=== PATIENT | female | born 1980 | race African-American/Black ===

== ENCOUNTER 2019-04-01 06:43 | Emergency (ER) | payer OTHER, SELFPAY ==
--- NOTE | ~2019-04-01 | CT_ITS ---
EXAMINATION: CT brain wo con DATE: 04/01/2019 12:24 INDICATION: Left arm numbness and tingling. TECHNIQUE: Computed tomography (CT) of the head was performed without intravenous contrast. The mA wa s adjusted according to patient size. Iterative reconstruction technique was employed. The dose-lengt h product was 605.33 mGy-cm. COMPARISON: None FINDINGS: There is no intracranial hemorrhage, acute infarction, or abnormal intracranial mass lesion . The ventricles are normal in size. There is mild mucosal thickening in the paranasal sinuses. The o rbits are normal. The mastoid air cells are normal. IMPRESSION: 1. Normal brain. Reviewed, dictated and finalized at location A. [employer]PER[employer] IMPRESSION: 1. Normal brain.
--- NOTE | ~2019-04-01 | XR_ITS ---
EXAMINATION: XR chest 1V portable DATE: 04/01/2019 07:35 INDICATION: Left arm numbness. TECHNIQUE: A single frontal view of the chest was obtained. COMPARISON: Chest 2 views 06/15/2018, chest CT 06/15/2018 FINDINGS: The chest demonstrates clear lungs without pneumonia, pleural effusion, or pneumothorax. Th e heart size is normal. IMPRESSION: 1. No acute cardiopulmonary disease. Reviewed, dictated and finalized at location A. ER HAND
[2019-04-01 06:47] VITALS: BP 190/93; PULSE 74; RESP 16; TEMP 36.1; O2SAT 100
--- NOTE | 2019-04-01 06:52 | ECG_ITS ---
Measurements Intervals [place] Rate: 75 P: 60 DC: 148 QRS: -5 QRSD: 73 T: 10 QT: 357 QTc: 399 Interpretive Statements SINUS RHYTHM BASELINE ARTIFACT- I, II, III, AVL, V6 NORMAL ECG Electronically Signed On 04-01-2019 11:26:56 CHIEF OF SERVICE by Tomasz Scott D.O.
--- NOTE | 2019-04-01 07:08 | ED.GENADULT ---
HPI - General Adult General Chief complaint: Extremity Injury, Upper Stated complaint: L ARM NUMBNESS AND TINGLING Time Seen by Provider: 04/01/19 06:58 Source: RN notes reviewed History of Present Illness HPI narrative: Patient presents to emergency department from home for left arm numbness. Patient states she has had 3 episodes each lasting approximately 5 minutes of numbness of the left arm. States that she has numbness and tingling and down the entire left arm. She states she is able to use the arm. She states after this last episode she began to feel weird stated felt like a feeling like her sugar was dropping. Patient denies having any trouble speaking or facial droop but states she was at her house by herself. She denies any numbness or weakness in the left leg. Patient currently denies any symptoms. Denies any chest pain shortness of breath abdominal pain nausea vomiting or any other symptoms. Patient states she is on amlodipine 10 mg daily for hypertension but did not take her medication this morning Related Data Home Medications Medication Instructions Recorded Confirmed hydralazine 02/26/19 insulin glargine [Basaglar KwikPen unit SUBCUT 02/26/19 U-100 Insulin] insulin lispro [Admelog SoloStar unit SUBCUT 02/26/19 U-100 Insulin] Allergies Allergy/AdvReac Type Severity Reaction Status Date / Time metronidazole Allergy Intermediate Rash Verified 02/26/19 16:05 omeprazole Allergy Intermediate Rash Verified 02/26/19 16:05 Review of Systems Review of Systems: Narrative: Gen.: Denies fevers or chills Eyes: Denies eye pain or visual change ENT: Denies congestion Respiratory: Denies shortness of breath or cough CV: Denies chest pain or palpitations GI: Denies abdominal pain nausea, emesis or diarrhea Musculoskeletal: Denies back pain or muscle pain Neuro: See HPI Skin: Denies rash Except as documented, all other systems reviewed and negative [facility] Past Medical History Medical History Arthritis Diabetes Diverticulitis Hypertension Irritable bowel syndrome Peripheral neuropathy Pneumonia Surgical History Surgical History (Updated 02/26/19 @ 15:33 by May Sow) Delivery by section History of tubal ligation Hx of appendectomy Social History Social History Smoking status: Never smoker Gender identity (if verbalized by the patient): Female Exam Narrative: Exam Narrative: APPEARANCE: No acute distress, nontoxic, resting in bed HEENT: Normocephalic, atraumatic, OMM, TMs clear bilaterally EYES: PERRL, EOMI NECK: Supple, nontender, full range of motion without pain, no meningismus RESPIRATORY: No respiratory distress, clear to auscultation bilaterally with no rhonchi wheezing or rales CARDIOVASCULAR: RRR s murmur ABDOMINAL: Soft, nontender, nondistended MUSCULOSKELETAL: Moves all extremities. No clubbing, cyanosis or edema. NEURO: A and O ?3, following commands, speech normal, cranial nerves II through XII grossly intact,muscle strength 5 out of 5 bilateral upper and lower extremities, no pronator drift, equal sensation in the bilateral upper and lower extremities SKIN:: Warm, dry. Normal Color PSYCHIATRIC: Normal affect/mood Course Course Emergency Course: Patient with initial blood sugars in the 50s. States she takes sliding scale insulin last dose last night. States she diet this morning. Patient was given food in the ED with improvement of blood sugars. Patient remained monitored in the ED. No further episodes of hypoglycemia. Patient remained with no further neuro deficits. Reviewed old records. Patient was chronically elevated creatinine will have patient follow as an Patient able to get up and ambulate to the bathroom with no difficulty Repeat neuro exam ANO x3 following commands, will strength 5 out of 5 bilateral upper and lower extremities. Equ
[2019-04-01 07:16] LABS: Basophils Absolute Auto 0.1 K/mm3 (0.0-0.1); Basophils Percent Auto 0.9 % (0.2-1.2); Eosinophils Absolute Auto 0.3 K/mm3 (0-0.3); Hematocrit 35.5 % (37.0-47.0); Hemoglobin 10.9 g/dL (12.0-15.0); Immature Granulocyte Absolute 0.04 K/mm3 (0.00-0.031); Immature Granulocyte Percent A 0.4 % (0-0.5); Lymphocytes Absolute Auto 3.55 K/mm3 (0.9-3.2); Lymphocytes Percent Auto 36.9 % (18.3-44.2); Mean Corpuscular HGB Conc 30.7 g/dl (32-36); Mean Corpuscular Volume 84.5 fl (80-100); Mean Platelet Volume 9.2 fl (7.4-10.4); Monocytes Absolute Auto 0.8 K/mm3 (0.1-0.6); Monocytes Percent Auto 7.8 % (2.6-8.5); Neutrophils Absolute Auto 4.9 K/mm3 (1.3-6.7); Platelet Count Result 404 k/mm3 (150-375); Red Cell Distribution Width 14.6 % (11.5-14.5); White Blood Count 9.6 K/mm3 (4.5-10.0)
[2019-04-01 07:19] LABS: Glucose Point of Care 52 (65-105)
[2019-04-01 07:31] LABS: Alanine Aminotransferase 25 U/L (4-35); Albumin Level 3.1 g/dL (3.5-5.1); Alkaline Phosphatase 172 U/L (38-126); Aspartate Amino Transferase 34 U/L (14-36); Bilirubin,Total < 0.1 mg/dL (0.2-1.3); Blood Urea Nitrogen 36 mg/dL (7-17); Calcium 8.5 mg/dL (8.4-10.2); Carbon Dioxide 27 mmol/L (22-30); Chloride 108 mmol/L (98-107); Estimated CRCL calculation 28 ml/min; Estimated Glomerular Filt Rate 19; Glucose 48 mg/dL (65-105); Potassium 3.8 mmol/L (3.4-5.0); Sodium 139 mmol/L (137-145)
[2019-04-01 07:32] LABS: INR 0.9; Prothrombin Time 11.6 Seconds (11.1-14.7)
[2019-04-01 07:38] LABS: Troponin I < 0.012 ng/mL (0.000-0.034)
[2019-04-01] MEDS: AMLODIPINE BESYLATE 5 MG TABLET 10 MG PO (07:40)
[2019-04-01 07:55] LABS: Glucose Point of Care 59 (65-105)
[2019-04-01 08:44] LABS: Glucose Point of Care 161 (65-105)
[2019-04-01 11:26] LABS: Glucose Point of Care 151 (65-105)
[2019-04-01 12:27] LABS: Add Urine Microscopic? YES; Appearance Urine Clear (Clear); Bacteria Urine Trace /hpf; Bilirubin Urine Negative (Negative); Blood Urine Negative (Negative); Color Urine Straw (Yellow); Glucose Urine UA 1+ mg/dL (Negative); Ketones Urine Negative (Negative); Leukocyte Esterase Ur Negative LEU/UL (Negative); Mucus Urine Rare /lpf; Nitrate Urine Negative (Negative); Protein Urine 3+ mg/dL (Negative); RBC Urine 0-2 /hpf (0-2); Specific Grav Ur 1.012 (1.001-1.035); Squamous Epithelial Cell Urine Few /hpf (Few); Urobilinogen Urine Negative mg/dL (<2.0); WBC Urine 0-3 /hpf
[2019-04-01 14:28] LABS: Glucose Point of Care 92 (65-105)
[2019-04-01 15:12] VITALS: BP 152/101; PULSE 72; RESP 14; O2SAT 100
[2019-04-01 15:13] LABS: Glucose Point of Care 90 (65-105)
--- NOTE | 2019-04-01 15:15 | PC.NURSE ---
Primary RN aware of BP and recommendation to speak to ERP if okay to d/c
[2019-04-01 15:21] VITALS: BP 188/96; PULSE 72; RESP 14; O2SAT 100
== END 2019-04-01 15:23 | disposition home or self-care (01) ==
PROVIDERS: Emergency Provider Emergency Medicine; PCP Registered Nurse
DX: E11.649 Type 2 diabetes mellitus with hypoglycemia without coma (principal); Z79.4 Long term (current) use of insulin; M19.90 Unspecified osteoarthritis, unspecified site; I10 Essential (primary) hypertension; K58.9 Irritable bowel syndrome, unspecified; E11.42 Type 2 diabetes mellitus with diabetic polyneuropathy
CPT/HCPCS: 36415; 70450; 71045; 80053; 81001; 82948; 84484; 85025; 85610; 85730; 93005; 99284; A9270

== ENCOUNTER 2019-05-21 14:28 | Emergency (ER) | payer SELFPAY ==
--- NOTE | ~2019-05-21 | XR_ITS ---
EXAMINATION: XR chest 1V portable DATE: 05/21/2019 15:08 INDICATION: Cough and chest pain and shortness of breath. TECHNIQUE: A single frontal view of the chest was obtained. COMPARISON: Chest single view 04/01/2019, chest CT 06/15/2018 FINDINGS: Sensitivity is decreased by obesity. The chest demonstrates clear lungs without pneumonia, pleural effusion, or pneumothorax. The heart size is normal. IMPRESSION: 1. No acute cardiopulmonary disease. Reviewed, dictated and finalized at location A.
--- NOTE | 2019-05-21 14:53 | ED.ABDPAIN ---
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 Patient notes that her symptoms have largely improved and she is very nervous given this recent revelation patient denies any fever chills nausea vomiting dyspnea at this time and on arrival is resting comfortably in the room in no distress. Related Data Home Medications Medication Instructions Recorded Confirmed hydralazine 02/26/19 insulin glargine [Basaglar KwikPen unit SUBCUT 02/26/19 U-100 Insulin] insulin lispro [Admelog SoloStar unit SUBCUT 02/26/19 U-100 Insulin] Allergies Allergy/AdvReac Type Severity Reaction Status Date / Time metronidazole Allergy Intermediate Rash Verified 05/21/19 15:02 omeprazole Allergy Intermediate Rash Verified 05/21/19 15:02 Review of Systems Review of Systems: All systems reviewed & are unremarkable except as noted in HPI and below PMFSH Past Medical History Medical History Arthritis Diabetes Diverticulitis Hypertension Irritable bowel syndrome Peripheral neuropathy Pneumonia Surgical History Surgical History Delivery by section History of tubal ligation Hx of appendectomy Social History Social History Smoking status: Never smoker Gender identity (if verbalized by the patient): Female Exam Narrative: Exam Narrative: GENERAL: Well-appearing, well-nourished, and in no acute distress. HEAD: Normocephalic, atraumatic. EYES: PERRLA and EOMI. ENT: Nares clear, no rhinorrhea or epistaxis. Mucous membranes moist. Oropharynx without tonsillar hypertrophy exudate or other lesions. CHEST: Clear to auscultation. No respiratory distress. No wheezes rales or rhonchi HEART: Regular rate and rhythm. No murmur heard. EXTREMITIES: Normal range of motion. No edema. SKIN: Warm, dry, no rash. NEURO: No focal deficits. Alert and oriented x3. Cranial nerves II through XII grossly intact PSYCH: Normal mood and affect. Course Course Emergency Course: Patient in the room in no distress aware of case findings treatment plan and diagnosis agreeing to follow-up as directed Consultations Consultation #1: Discussed case with patient's last sawyer who is aware of her blood pressures and kidney function and will follow her in clinic with no further instructions at this time. Dr tripp Date: 05/21/19 Time: 16:00 MDM - Abdominal Pain MDM Narrative Medical decision making narrative: Patient in the room in no distress no pneumonia normal vital signs afebrile nontoxic-appearing felt appropriate for outpatient reevaluation and agreeing to follow-up as directed or to return if symptoms worsen or concerns patient felt appropriate for outpatient reevaluation and will be discharged provided with reasons to return advised to self quarantine and to follow with primary care. Patient was given blood pressure medication in the emergency department as well as had her blood pressure medication filled is aware of discussion with her last sawyer and agrees to follow with primary care and nephrology as instructed Discharge Plan Discharge Clinical Impression: Acute upper respiratory infection, Hypertension, Acute hyperglycemia Patient Disposition: Home, Self-Care Condition: Stable Instructions: Antibiotic Form, Hypertension (ED), Diabetic Hyperglycemia (ED) Additional Instructions: F
[2019-05-21 14:57] VITALS: BP 251/115; PULSE 91; RESP 18; TEMP 37.5; O2SAT 98
[2019-05-21 15:01] VITALS: PULSE 88
[2019-05-21 15:26] LABS: Alanine Aminotransferase 20 U/L (4-35); Albumin Level 3.2 g/dL (3.5-5.1); Alkaline Phosphatase 206 U/L (38-126); Aspartate Amino Transferase 24 U/L (14-36); Basophils Absolute Auto 0.1 K/mm3 (0.0-0.1); Basophils Percent Auto 0.8 % (0.2-1.2); Bilirubin,Total < 0.1 mg/dL (0.2-1.3); Blood Urea Nitrogen 31 mg/dL (7-17); Calcium 8.3 mg/dL (8.4-10.2); Carbon Dioxide 24 mmol/L (22-30); Chloride 103 mmol/L (98-107); Eosinophils Absolute Auto 0.3 K/mm3 (0-0.3); Eosinophils Percent Auto 3.1 % (0-4.4); Estimated CRCL calculation 27 ml/min; Estimated Glomerular Filt Rate 17; Glucose 317 mg/dL (65-105); Hematocrit 37.4 % (37.0-47.0); Hemoglobin 11.7 g/dL (12.0-15.0); Immature Granulocyte Absolute 0.04 K/mm3 (0.00-0.031); Immature Granulocyte Percent A 0.4 % (0-0.5); Lymphocytes Absolute Auto 3.26 K/mm3 (0.9-3.2); Lymphocytes Percent Auto 36.1 % (18.3-44.2); Mean Corpuscular HGB Conc 31.3 g/dl (32-36); Mean Corpuscular Hemoglobin 25.8 pg (26-34); Mean Corpuscular Volume 82.6 fl (80-100); Mean Platelet Volume 9.4 fl (7.4-10.4); Monocytes Absolute Auto 0.5 K/mm3 (0.1-0.6); Neutrophils Absolute Auto 4.8 K/mm3 (1.3-6.7); Neutrophils Percent Auto 53.6 % (45.5-73.1); Platelet Count Result 419 k/mm3 (150-375); Potassium 4.6 mmol/L (3.4-5.0); Red Blood Count 4.53 M/mm3 (4.2-5.4); Red Cell Distribution Width 14.1 % (11.5-14.5); Sodium 136 mmol/L (137-145)
[2019-05-21 16:06] VITALS: BP 191/111; PULSE 74; RESP 18; O2SAT 100
[2019-05-21 16:12] VITALS: BP 191/111; PULSE 76; RESP 18; O2SAT 97
[2019-05-21] MEDS: AMLODIPINE BESYLATE 5 MG TABLET 10 MG PO (16:13)
== END 2019-05-21 16:13 | disposition home or self-care (01) ==
PROVIDERS: Emergency Medicine Emergency Medical Services; Emergency Provider Emergency Medicine; PCP Registered Nurse
DX: J06.9 Acute upper respiratory infection, unspecified (principal); I10 Essential (primary) hypertension; E11.65 Type 2 diabetes mellitus with hyperglycemia; E11.42 Type 2 diabetes mellitus with diabetic polyneuropathy; K58.9 Irritable bowel syndrome, unspecified; M19.90 Unspecified osteoarthritis, unspecified site; Z79.4 Long term (current) use of insulin
CPT/HCPCS: 36415; 71045; 80053; 85025; 99283; A9270

== ENCOUNTER 2019-10-24 05:40 | Emergency (ER) | payer MEDICAID, SELFPAY ==
--- NOTE | ~2019-10-24 | XR_ITS ---
EXAMINATION: XR wrist RT min 3V INDICATION: Right wrist pain TECHNIQUE: Four views of the right wrist are obtained. COMPARISON: None available FINDINGS: There is no fracture, dislocation, or subluxation. The bones and joint spaces are normal. C alcified atherosclerosis is noted. IMPRESSION: 1. No acute osseous abnormality. 2. Calcified atherosclerosis, somewhat unusual for patient age. Reviewed, dictated and finalized at location A.
[2019-10-24 05:45] VITALS: BP 191/88; PULSE 88; RESP 20; TEMP 36.6; O2SAT 100
[2019-10-24] MEDS: IBUPROFEN 400 MG TABLET 800 MG PO (06:25)
--- NOTE | 2019-10-24 06:44 | ED.EXTPRO ---
HPI - Extremity Problem General Chief complaint: Extremity Problem,Nontraumatic Stated complaint: my hand wont move Time Seen by Provider: 10/24/19 06:13 Source: patient Mode of arrival: ambulatory Limitations: no limitations History of Present Illness HPI Narrative: This patient is a 39 year old female right hand dominant who presents for right wrist pain. She states this morning she woke up with pain to her right wrist. She has pain mostly to ulnar side of wrist. She reports intermittently she has sharp pain that radiates volarly. She is having difficulty moving her wrist and fingers due to pain. She has not attempted any management for her pain or taken any medication. She denies fever, chills, nausea, vomiting abdominal pain or vaginal discharge. She denies any injury. 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 Related Data Home Medications Medication Instructions Recorded Confirmed hydralazine 02/26/19 insulin glargine [Basaglar KwikPen unit SUBCUT 02/26/19 U-100 Insulin] insulin lispro [Admelog SoloStar unit SUBCUT 02/26/19 U-100 Insulin] Allergies Allergy/AdvReac Type Severity Reaction Status Date / Time metronidazole Allergy Intermediate Rash Verified 05/21/19 15:02 omeprazole Allergy Intermediate Rash Verified 05/21/19 15:02 Review of Systems Review of Systems: All systems reviewed & are unremarkable except as noted in HPI and below PMFSH Past Medical History Medical History Arthritis Diabetes Diverticulitis Hypertension Irritable bowel syndrome Peripheral neuropathy Pneumonia Social History Social History Smoking status: Never smoker Gender identity (if verbalized by the patient): Female Exam Const: General: alert Orientation/consciousness: patient oriented x3 HENMT: Head: normocephalic and atraumatic General nose exam: No nasal polyps present Face and sinus: face symmetric Mouth: Yes Normal oral and palatal mucosa present and Yes oropharynx normal Eyes: EOM: EOMs intact bilaterally Skin: General skin exam: normal color Rashes: no rashes Neuro: General: patient oriented x3 and moves all extremities Extrem: Other: right wrist with TTP dorsal on ulnar aspect with mild swelling, no erythema. Pain with extension and flexion. Course Reevaluation(s) Reevaluation #1: I believe patient likely has tendinopathy. She has not erythema and no effusion . I Discussed management. Date: 10/24/19 Time: 07:07 Vital Signs Vital signs: Vital Signs Temperature 97.8 F 10/24/19 05:45 Pulse Rate 88 10/24/19 05:45 Respiratory Rate 20 10/24/19 05:45 Blood Pressure 191/88 H 10/24/19 05:45 Pulse Oximetry 100 10/24/19 05:45 Temperature 97.8 F 10/24/19 05:45 Pulse Rate 88 10/24/19 05:45 Respiratory Rate 10/24/19 05:45 Blood Pressure 191/88 H 10/24/19 05:45 Pulse Oximetry 100 10/24/19 05:45 MDM - Extremity (Nontraumatic) Imaging Data Radiologist's impression: ITS Impressions Wrist X-Ray 10/24/19 06:41 IMPRESSION: 1. No acute osseous abnormality. 2. Calcified atherosclerosis, somewhat unusual for patient age. Discharge Plan Discharge Clinical Impression: Acute pain of right wrist Patient Disposition: Home, Self-Care Condition: Stable Instructions: Antibiotic Form, Arthralgia (ED), Tendinitis (ED) Additional Instructions: Follow up with your orthopedic surgeon or your primary care physician. Take medication as prescribed. Get a wrist brace from [employer] or [email or web address]. Prescriptions: New naproxen 500 mg tablet 500 mg PO BID PRN (Reason: pain) Qty: 30 RF: 0 hydrocodone-acetaminophen [[place]] 5-325 mg tablet 1 tablet PO Q6H PRN (Reason: pain) Qty: 14 RF: 0 No Action hydralazine 25 mg tablet RF: 0 insulin lispro [Admelog SoloStar U-100 Insulin] 100 unit/mL insulin pen
[2019-10-24 07:24] VITALS: BP 154/84; PULSE 69; RESP 19; O2SAT 99
== END 2019-10-24 07:26 | disposition home or self-care (01) ==
PROVIDERS: Emergency Provider General Practice; PCP Registered Nurse
DX: M25.531 Pain in right wrist (principal); E11.42 Type 2 diabetes mellitus with diabetic polyneuropathy; K58.9 Irritable bowel syndrome, unspecified; I10 Essential (primary) hypertension; Z79.4 Long term (current) use of insulin; M19.90 Unspecified osteoarthritis, unspecified site
CPT/HCPCS: 73110; 99283; A9270

== ENCOUNTER 2020-02-27 07:39 | Inpatient (IN) | payer MEDICAID, SELFPAY ==
[2020-02-27] VITALS (15 sets, daily range): BP systolic 142–210; BP diastolic 72–110; PULSE 69–95; RESP 12–24; TEMP 35.8–36.7; O2SAT 98–100; BMI 44.0
--- NOTE | ~2020-02-27 | US_ITS ---
EXAMINATION: US renal BI EXAM DATE: 02/27/2020 15:21 INDICATION: Acute on chronic renal failure . TECHNIQUE: Multiple grayscale and Doppler images of the kidneys were obtained (by a technologist who performed the scan) and subsequently reviewed. Comparison is made to prior examination from 03/09/2016 . FINDINGS: Right kidney: There is normal contour and echogenicity. It measures 8.4 x 5.6 x 4.0 centimeters. Th ere are no focal renal lesions identified. There is no hydronephrosis. Left kidney: There is normal contour and echogenicity. It measures 8.6 x 4.5 x 4.5 centimeters. The re are no focal renal lesions identified. There is no hydronephrosis. The bladder is contracted but otherwise unremarkable. Kidney dimensions above are smaller than in 201 7. IMPRESSION: 1. Development of mild bilateral renal atrophy. 2. No hydronephrosis. Reviewed, dictated and finalized at location A. IPITATOR
--- NOTE | ~2020-02-27 | XR_ITS ---
EXAMINATION: XR chest 2V 02/27/2020 08:28 INDICATION: Chest pain. PROCEDURE: 2 view chest COMPARISON: Comparison to multiple prior studies sequentially, with oldest reviewed study dated 05/04. FINDINGS: The lungs are clear. The cardiomediastinal silhouette is within normal limits. There are no pleural effusions. There is no pneumothorax suspected. IMPRESSION: 1: NO ACUTE CARDIOPULMONARY DISEASE. Reviewed, dictated and finalized at location A. RMODAL DISPATCHER
--- NOTE | 2020-02-27 07:43 | ECG_ITS ---
Measurements Intervals [place] Rate: 79 P: 56 VA: 136 QRS: -4 QRSD: 84 T: 10 QT: 350 QTc: 403 Interpretive Statements SINUS RHYTHM DELAYED PRECORDIAL R/S TRANSITION BASELINE ARTIFACT- II, III, AVF BORDERLINE ECG Electronically Signed On 02-27-2020 7:54:08 [employer]ATCH PLANT SUPERVISOR by Tomasz Scott D.O.
--- NOTE | 2020-02-27 07:47 | ED.CHESTPAIN ---
HPI - Chest Pain General Chief Complaint: Chest Pain Stated Complaint: CP Time Seen by Provider: 02/27/20 07:42 Source: RN notes reviewed History of Present Illness HPI narrative: Patient presents to emergency department from home for chest pain. Patient states she has been having midsternal chest pain for the past 3 days progressively worsening with pain in the epigastric region of the abdomen states it feels similar to her acid reflux. Patient states she has tried taking Tums at home with minimal relief she denies any fevers or chills shortness of breath or diarrhea does note nausea with the symptoms Related Data Home Medications Medication Instructions Recorded Confirmed hydralazine 02/26/19 insulin glargine [Basaglar KwikPen unit SUBCUT 02/26/19 U-100 Insulin] insulin lispro [Admelog SoloStar unit SUBCUT 02/26/19 U-100 Insulin] Allergies Allergy/AdvReac Type Severity Reaction Status Date / Time metronidazole Allergy Intermediate Rash Verified 02/27/20 08:45 omeprazole Allergy Intermediate Rash Verified 02/27/20 08:45 Review of Systems Review of Systems: Narrative: Gen.: Denies fevers or chills ENT: Denies congestion Respiratory: Denies shortness of breath or cough CV: Reports chest pain GI: Reports epigastric abdominal pain and nausea denies emesis or diarrhea denies burning, urgency, frequency or hematuria Musculoskeletal: Denies back pain or muscle pain Neuro: Denies numbness, tingling, weakness or focal weakness Skin: Denies rash Except as documented, all other systems reviewed and negative [facility] Past Medical History Medical History (Updated 02/27/20 @ 09:19 by David Ge DO) Arthritis Diabetes Diverticulitis Hypertension Irritable bowel syndrome Peripheral neuropathy Pneumonia Surgical History Surgical History Delivery by section History of tubal ligation Hx of appendectomy Social History Social History Smoking status: Never smoker Gender identity (if verbalized by the patient): Female Exam Narrative: Exam Narrative: APPEARANCE: No acute distress, nontoxic, resting in bed HEENT: Normocephalic, atraumatic, OMM RESPIRATORY: No respiratory distress, clear to auscultation bilaterally with no rhonchi wheezing or rales CARDIOVASCULAR: RRR s murmur ABDOMINAL: Soft, nondistended, tender to palpation epigastric region no tenderness right upper quadrant, left upper quadrant right lower quadrant left lower quadrant no rebound or guarding MUSCULOSKELETAl: Moves all extremities. No clubbing, cyanosis or edema. NEURO: Awake and alert. Following commands, speech normal, no focal deficits SKIN:: Warm, dry. Normal Color PSYCHIATRIC: Normal affect/mood Course Course Emergency Course: Patient states chest pain is improved with GI cocktail Called and discussed with Dr. Stacy patient's current renal function patient is followed by Dr. Rebecca pina creatinine in the threes back in August this time recommends admission with normal saline at 75 mL an hour Discussed with Dr. Del Real presentation work-up. Agrees with admission at this time Discussed with patient and family results of workup and diagnosis. Discussed need for admission. Patient and family understand and agree to current treatment plan Vital Signs Vital signs: Vital Signs Temperature 98.0 F 02/27/20 07:44 Pulse Rate 95 02/27/20 07:44 Respiratory Rate 24 H 02/27/20 07:44 Blood Pressure 210/110 H 02/27/20 07:44 Pulse Oximetry 98 02/27/20 07:44 Temperature 98.0 F 02/27/20 07:44 Pulse Rate 76 02/27/20 09:17 Respiratory Rate 18 02/27/20 09:17 Blood Pressure 176/98 H 02/27/20 09:17 Pulse Oximetry 100 02/27/20 09:17 MDM - Chest Pain Lab Data Result diagrams: 02/27/20 07:59 02/27/20 07:59 Labs: Lab Results 02/27/20 02/27/20 02/27/20 Ran
[2020-02-27 08:07] LABS: Basophils Absolute Auto 0.1 K/mm3 (0.0-0.1); Basophils Percent Auto 0.8 % (0.2-1.2); Eosinophils Absolute Auto 0.3 K/mm3 (0-0.3); Eosinophils Percent Auto 2.8 % (0-4.4); Hematocrit 34.4 % (37.0-47.0); Hemoglobin 11.1 g/dL (12.0-15.0); Immature Granulocyte Absolute 0.05 K/mm3 (0.00-0.031); Immature Granulocyte Percent A 0.5 % (0-0.5); Lymphocytes Percent Auto 32.8 % (18.3-44.2); Mean Corpuscular HGB Conc 32.3 g/dl (32-36); Mean Corpuscular Hemoglobin 26.4 pg (26-34); Mean Corpuscular Volume 81.9 fl (80-100); Mean Platelet Volume 9.7 fl (7.4-10.4); Monocytes Absolute Auto 0.6 K/mm3 (0.1-0.6); Neutrophils Absolute Auto 5.6 K/mm3 (1.3-6.7); Neutrophils Percent Auto 57.1 % (45.5-73.1); Platelet Count Result 359 k/mm3 (150-375); Red Cell Distribution Width 14.1 % (11.5-14.5); White Blood Count 9.8 K/mm3 (4.5-10.0)
[2020-02-27] MEDS: ASPIRIN 81 MG CHEWABLE TABLET 324 MG PO (08:08)
[2020-02-27 08:18] LABS: INR 0.9; Prothrombin Time 12.9 Seconds (11.1-14.7)
[2020-02-27 08:19] LABS: Partial Thromboplastin Time 21.8 SECONDS (22.3-36.8)
[2020-02-27 08:20] LABS: Anion Gap 6 mmol/L (8-16); Blood Urea Nitrogen 53 mg/dL (7-17); Calcium 8.7 mg/dL (8.4-10.2); Carbon Dioxide 21 mmol/L (22-30); Chloride 111 mmol/L (98-107); Estimated CRCL calculation 13 ml/min; Estimated Glomerular Filt Rate 8; Glucose 114 mg/dL (65-105); Potassium 4.5 mmol/L (3.4-5.0); Sodium 138 mmol/L (137-145)
[2020-02-27 08:21] LABS: Alanine Aminotransferase 15 U/L (4-35); Albumin Level 3.5 g/dL (3.5-5.1); Alkaline Phosphatase 186 U/L (38-126); Aspartate Amino Transferase 21 U/L (14-36); Bilirubin,Total 0.3 mg/dL (0.2-1.3); Lipase 198 U/L (23-300)
[2020-02-27 08:32] LABS: Troponin I 0.013 ng/mL (0.000-0.034)
--- NOTE | 2020-02-27 08:34 | PC.NURSE ---
IV therapy called at this time, IV attempted multiple times prior to call.
[2020-02-27 08:53] LABS: Add Urine Microscopic? YES; Appearance Urine Clear (Clear); Bacteria Urine Trace /hpf; Bilirubin Urine Negative (Negative); Blood Urine Negative (Negative); Color Urine Straw (Yellow); Glucose Urine UA 2+ mg/dL (Negative); Ketones Urine Negative (Negative); Leukocyte Esterase Ur Trace LEU/UL (Negative); Mucus Urine Rare /lpf; Nitrate Urine Negative (Negative); Protein Urine 3+ mg/dL (Negative); Specific Grav Ur 1.015 (1.001-1.035); Squamous Epithelial Cell Urine Many /hpf (Few); Urobilinogen Urine Negative mg/dL (<2.0); WBC Urine 31-50 /hpf
[2020-02-27] MEDS: SODIUM CHLORIDE 0.9% IV 1,000 ML 999 ML IV CONT (09:13)
[2020-02-27] MEDS: ONDANSETRON INJ 4 MG/2 ML VIAL IV PUSH (09:13)
[2020-02-27 11:14] LABS: Troponin I < 0.012 ng/mL (0.000-0.034)
[2020-02-27] MEDS: SODIUM CHLORIDE 0.9% IV 1,000 ML 75 ML IV CONT ×2 (11:45→20:40)
[2020-02-27 12:55] LABS: Glucose Point of Care 84 (65-105)
--- NOTE | 2020-02-27 13:11 | PM.IMHP ---
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 The patient stated that her chest pain started on Thursday night She said she felt the acid reflux coming up into her esophagus. She said she ate some Tums but could not stand the taste of the Tums. She said she kept feel like it was the acid was going to come up out of her mouth. But never did. This pain has lasted for 3 days nothing has made it worse or made it better. She tells me that she follows with a clinical nursing director and that her blood pressure and her diabetes has not been very well under control. She cannot recall when her last A1c was. Patient stated she does not always have the money for insulin and needs assistant case manager with getting her insulin at times. She tells me that she does see a clinical nursing director. He ran some test and then she said that they may possibly do a biopsy sometime soon. The patient sees an door liner as well. Stand the chest pain. She has no reproducible pain it does not go up her neck or down her arms. She has no fever no chills. She gets checked for COVID-19 twice a week at her work. No cough. No shortness of breath. Does not radiate down her arms or through her back. She states it feels like the worse acid reflux ever that just would not go away. She said that she was given a GI cocktail in the emergency room and that did seem to help. The patient states she does not take any NSAIDs at home. The patient was given aspirin IV fluids Zofran and the GI cocktail and she is also found have a UTI and was started on ceftriaxone. Went up to 6.1 with her last being 3.0 April of last year. Patient is being admitted into inpatient services on the date of service 02/27/2020. Review of Systems Review of Systems: All systems reviewed & are unremarkable except as noted in HPI and below Constitutional: Constitutional: Reports as per HPI and Reports no additional constitutional complaints Eyes: Eyes: Reports as per HPI and Reports no additional eye complaints ENT: Reports system reviewed and no additional complaints, except as documented and Reports Normal hearing present Cardiovascular: Cardiovascular: Reports no additional cardiovascular complaints Respiratory: Respiratory: Reports no additional respiratory complaints and Reports no additional respiratory complaints Gastrointestinal: Gastrointestinal: Reports as per HPI and Reports no additional gastrointestinal complaints Musculoskeletal: Musculoskeletal: Reports no additional musculoskeletal complaints Integumentary/Breasts: Skin/Breast: Reports system reviewed and no additional complaints, except as docu and Reports as per HPI Neurologic: Reports system reviewed and no additional complaints, except as documented, Reports as per HPI and Reports Normal hearing present Psychiatric: Psychiatric: Reports no additional psychiatric complaints and Reports as per HPI Endocrine: Endocrine: Reports no additional endocrine complaints Hematologic/Lymphatic: Hematologic/Lymphatic: Reports no additional hematologic/lymphatic complaints Allergic/Immunologic: Allergic/Immunologic: Reports no additional allergic/immunologic complaints [facility] Past Medical History Medical History (Updated 02/27/20 @ 13:18 by Romina Kimble NP) Arthritis Right wrist left knee Diabetes Type 2 insulin-dependent Diverticulitis Hypertension Irritable bowel syndrome Peripheral neuropathy Pneumonia Surgical History Surgical History (Updated 02/27/20 @ 13:18 by Romina Kimble NP) Delivery by section X3 History of salpingo-oophorectomy History of tubal ligation Hx of appendectomy Hx of cholecystectomy Family History Family History Mother Diabetes mellitus Breast cancer Sibling History of blood clots Father Hypertension Prostate carci
[2020-02-27] MEDS: amLODIPine BESYLATE 5 MG TABLET 10 MG PO (14:01)
[2020-02-27 14:23] LABS: Erythrocyte Sedimentation Rate > 140 mm/hr (0-20)
[2020-02-27 14:27] LABS: Complement C3 110 mg/dL (88-165)
[2020-02-27 14:28] LABS: Troponin I 0.015 ng/mL (0.000-0.034)
[2020-02-27 14:30] LABS: Alanine Aminotransferase 12 U/L (4-35); Albumin Level 2.9 g/dL (3.5-5.1); Alkaline Phosphatase 144 U/L (38-126); Aspartate Amino Transferase 18 U/L (14-36); Bilirubin,Total 0.2 mg/dL (0.2-1.3); CRP < 0.5 mg/dL (<1.0); Creatine Kinase 222 U/L (30-135); Magnesium 1.7 mg/dL (1.6-2.3); Phosphorus 4.9 mg/dL (2.5-4.5)
[2020-02-27 14:46] LABS: Creatinine Urine 60.8 mg/dL
[2020-02-27 14:58] LABS: HIV 1/2 Ab P24 Ag Result Negative (Negative)
[2020-02-27 15:00] LABS: Sodium Urine Random 122 meq/L
[2020-02-27 15:02] LABS: Total Protein Urine Random 557 mg/dL; Ur Ttl Prot Creatinine Ratio 9.16 mg/mg (0-0.20)
[2020-02-27 15:30] LABS: Hepatitis B Surface Antigen Negative (Negative)
[2020-02-27 15:35] LABS: Hepatitis B Core IgM Result Negative (Negative)
[2020-02-27 15:48] LABS: Hepatitis B Surface Anti Res Negative; Hepatitis C Virus Antibody Negative (Negative)
--- NOTE | 2020-02-27 16:50 | PM.CNNEP ---
Assessment and Plan Assessment and plan (1) CKD (chronic kidney disease) stage 4, GFR 15-29 ml/min: Code(s): N18.4 - Chronic kidney disease, stage 4 (severe) Status: Acute Assessment and Plan: The patient has chronic kidney disease stage 4. She was evaluated by Dr. Fernandez in the office. Most likely this is due to diabetes and hypertension. (2) Acute renal failure: Code(s): N17.9 - Acute kidney failure, unspecified Status: Acute Assessment and Plan: The patient has acute kidney injury on top of her CKD. Her creatinine was 3.8 a few months ago. It would be unusual for her diabetes and hypertension to cause this rapid decline in kidney function all by itself. There is no clear issue that would cause her creatinine to have worsened this much. The patient could have obstruction. We will check a renal ultrasound. Interstitial nephritis is unlikely because she has not been on any new medications. Glomerulonephritis would be unusual in this scenario as well. Rhabdomyolysis is always a possibility. We can check a CPK. She has pyuria and so probably has a UTI. This could lead to some increase in her creatinine. Also if she is not eating and drinking very well because of the UTI could be a little dehydrated. The patient's blood pressure was very high on admission. It is possible that she might have hypertensive nephropathy. Will check urine electrolytes and eosinophils, CPK, and a renal ultrasound. (3) Hypertension: Code(s): I10 - Essential (primary) hypertension Status: Chronic Assessment and Plan: Her blood pressure is high. She will get back on her outpatient medications and we will try to get the blood pressure down. Her blood pressure has been historically high all through 2020. So I do not want to overcorrect her blood pressure right now. We will shoot for getting it down to about 150. (4) Diabetes: Code(s): E11.9 - Type 2 diabetes mellitus without complications Status: Chronic Assessment and Plan: The patient has diabetes. Will check an A1c (5) Gastroesophageal reflux: Code(s): K21.9 - Gastro-esophageal reflux disease without esophagitis Status: Acute Assessment and Plan: The patient has gastroesophageal reflux symptoms. She is getting famotidine for this. (6) Erythropoietin deficiency anemia: Code(s): D63.1 - Anemia in chronic kidney disease Status: Acute Assessment and Plan: Her hemoglobin is 11. This is most likely due to her renal insufficiency. It is not low enough to need erythropoietin. (7) Pyuria: Code(s): R82.81 - Pyuria Status: Acute Assessment and Plan: The patient has pyuria. Urine culture has been checked. She is getting ceftriaxone for this. History of Present Illness Reason for Consult Consult date: 02/27/20 Chief Complaint Chief complaint: Acute renal failure, chest pain History of Present Illness Narrative: Dotty is a very pleasant lady who sees Dr. Fernandez in the office for chronic kidney disease stage 4. She has several underlying medical conditions as well including arthritis, diabetes, hypertension, diverticulosis, irritable bowel syndrome, peripheral neuropathy, and history of pneumonia. Last time she saw Dr. Fernandez was mid 2019 when her creatinine was 3.8 and her GFR was around 15. She did not have any uremic symptoms at the time. He wanted to see her back and also repeat her blood work. At that time he talked about dialysis briefly. The patient is been doing pretty well she says since then until Thursday when she woke up and she had some nausea plus epigastric burning. This continued through the morning and then got better by the afternoon. Thursday the same thing happened. Today she had another episode in the morning and this had to some chest pressure so she came into the emergency room. In the ER she was evaluated. She looks like regul[facility]
[2020-02-27 17:01] LABS: Glucose Point of Care 250 (65-105)
[2020-02-27] MEDS: INSULIN ASPART (*BKC) 100 UNITS/ML SUB-Q (17:16)
[2020-02-27 20:31] LABS: Glucose Point of Care 347 (65-105)
[2020-02-27] MEDS: FAMOTIDINE 20 MG/2 ML VIAL IV PUSH (20:34)
[2020-02-27] MEDS: INSULIN GLARGINE (*BKC) 100 UNITS/ML 20 UNITS SUB-Q (20:35)
[2020-02-27] MEDS: LABETALOL HCL INJ 100 MG/20 ML VIAL IV PUSH (21:08)
[2020-02-27] MEDS: ACETAMINOPHEN 325 MG TABLET 650 MG PO (22:05)
[2020-02-28] VITALS (17 sets, daily range): BP systolic 136–182; BP diastolic 61–89; PULSE 73–92; RESP 12–20; TEMP 36.4–36.9; O2SAT 95–100
[2020-02-28 05:39] LABS: Basophils Absolute Auto 0.1 K/mm3 (0.0-0.1); Basophils Percent Auto 0.8 % (0.2-1.2); Eosinophils Absolute Auto 0.3 K/mm3 (0-0.3); Eosinophils Percent Auto 3.2 % (0-4.4); Hematocrit 28.1 % (37.0-47.0); Hemoglobin 8.8 g/dL (12.0-15.0); Immature Granulocyte Absolute 0.04 K/mm3 (0.00-0.031); Immature Granulocyte Percent A 0.5 % (0-0.5); Lymphocytes Absolute Auto 2.77 K/mm3 (0.9-3.2); Lymphocytes Percent Auto 35.2 % (18.3-44.2); Mean Corpuscular HGB Conc 31.3 g/dl (32-36); Mean Corpuscular Hemoglobin 26.1 pg (26-34); Mean Corpuscular Volume 83.4 fl (80-100); Monocytes Absolute Auto 0.5 K/mm3 (0.1-0.6); Monocytes Percent Auto 6.1 % (2.6-8.5); Neutrophils Absolute Auto 4.3 K/mm3 (1.3-6.7); Neutrophils Percent Auto 54.2 % (45.5-73.1); Platelet Count Result 310 k/mm3 (150-375); Red Blood Count 3.37 M/mm3 (4.2-5.4); Red Cell Distribution Width 13.9 % (11.5-14.5); White Blood Count 7.9 K/mm3 (4.5-10.0)
[2020-02-28 05:47] LABS: Albumin Level 2.7 g/dL (3.5-5.1); Anion Gap 5 mmol/L (8-16); Blood Urea Nitrogen 50 mg/dL (7-17); Calcium 7.5 mg/dL (8.4-10.2); Carbon Dioxide 19 mmol/L (22-30); Chloride 109 mmol/L (98-107); Estimated CRCL calculation 14 ml/min; Estimated Glomerular Filt Rate 8; Glucose 307 mg/dL (65-105); Phosphorus 5.3 mg/dL (2.5-4.5); Sodium 133 mmol/L (137-145)
[2020-02-28 07:53] LABS: Hemoglobin A1C 9.7 % (<5.7)
[2020-02-28 08:26] LABS: Glucose Point of Care 252 (65-105)
[2020-02-28] MEDS: INSULIN ASPART (*BKC) 100 UNITS/ML SUB-Q ×3 (08:57→17:17)
[2020-02-28] MEDS: amLODIPine BESYLATE 5 MG TABLET 10 MG PO (08:58)
[2020-02-28] MEDS: FAMOTIDINE 20 MG/2 ML VIAL IV PUSH ×2 (09:00→21:50)
[2020-02-28 12:27] LABS: Glucose Point of Care 333 (65-105)
[2020-02-28] MEDS: INSULIN GLARGINE (*BKC) 100 UNITS/ML 10 UNITS SUB-Q (12:33)
[2020-02-28] MEDS: BISACODYL 5 MG TABLET EC PO (12:36)
[2020-02-28] MEDS: LABETALOL HCL INJ 100 MG/20 ML VIAL IV PUSH ×3 (12:37→22:05)
[2020-02-28] MEDS: SODIUM CHLORIDE 0.9% IV 1,000 ML 75 ML IV CONT (13:34)
--- NOTE | 2020-02-28 16:04 | PM.IMPN ---
Progress Note: A&P Assessment and Plan (1) Atypical chest pain: Code(s): R07.89 - Other chest pain Status: Acute Assessment and Plan: The patient stated that it felt more like acid reflux. Will continue to trend her troponins. So far they have been negative. I will start her on IV Pepcid. This appears to be more acid reflux. The patient did get some relief with a GI cocktail. Her pain got worse with eating. Her pain did not get worse with exertion and it remained constant throughout the last 3 days. No reproducible pain. Does not radiate to her arms or back. Although she is diabetic and could have atypical symptoms. (2) Acute renal failure: Code(s): N17.9 - Acute kidney failure, unspecified Status: Acute Assessment and Plan: Nephrology has been consulted. Her creatinine is up to 6.1 but the patient stated that her pain got worse whenever she ate so she was avoiding certain foods probably got dehydrated. She has acute on chronic renal failure. It looks like she is stage IV possibly even 5. At 1 point she said her hand spring repairer talked about a biopsy. I ordered some labs and a renal ultrasound on her as well some urine as per protocol for acute med surg renal failure. 02/28/20 16:04 patient is a 39-year-old female morbidly obese history of hypertension diabetes and stage 4 chronic kidney disease with baseline creatinine of 3.0, presented emergency department with chest pain 3 sets of cardiac enzymes were negative and there were no acute changes on her EKG suggesting patient did not have acute coronary syndrome however patient creatinine has climbed to 6.1 upon arrival compared to 3 on 04/2019, patient seen by hand spring repairer suspect some component of dehydration patient is being hydrated, will continue to monitor kidney function and further workup is in progress, patient kidney ultrasound showed Development of mild bilateral renal atrophy and no hydronephrosis. Will continue to monitor kidney function and further recommendation to follow (3) Diabetes: Code(s): E11.9 - Type 2 diabetes mellitus without complications Status: Chronic Assessment and Plan: I did request for diabetic educators the patient stated she does not always get her insulin and may need some assistance with learning where she can get insulin during those times when she is not available to pay for it. Will do Accu-Cheks AC and HS and cover with sliding scale insulin. Will continue with Basaglar. She said at times she will cover her blood sugars with Lantus. (4) Hypertension: Code(s): I10 - Essential (primary) hypertension Status: Chronic Assessment and Plan: Patient has tried hydralazine in the past and it made her feel like she had lupus-like symptoms. She is on amlodipine low dose. Subjective Date/time seen: 02/28/20 16:04 patient is a 39-year-old female morbidly obese history of hypertension diabetes and stage 4 chronic kidney disease with baseline creatinine of 3.0, presented emergency department with chest pain 3 sets of cardiac enzymes were negative and there were no acute changes on her EKG suggesting patient did not have acute coronary syndrome however patient creatinine has climbed to 6.1 upon arrival compared to 3 on 04/2019, patient seen by hand spring repairer suspect some component of dehydration patient is being hydrated, will continue to monitor kidney function and further workup is in progress, patient kidney ultrasound showed Development of mild bilateral renal atrophy and no hydronephrosis. Will continue to monitor kidney function and further recommendation to follow Review of Systems Review of Systems: All systems reviewed & are unremarkable except as noted in HPI and below Exam Narrative: Exam Narrative: Morbidly obese Patient is comfortable, NAD HEENT: eyes are clear and none icteric LUNGS:CTA HEART: RR S1S2 ABD: BS+, Soft and nontender Lower ext
[2020-02-28 16:54] LABS: Glucose Point of Care 266 (65-105)
--- NOTE | 2020-02-28 17:09 | PM.PNNEP ---
Progress Note: A&P Assessment and Plan (1) CKD (chronic kidney disease) stage 4, GFR 15-29 ml/min: Code(s): N18.4 - Chronic kidney disease, stage 4 (severe) Status: Acute Assessment and Plan: The patient has chronic kidney disease stage 4. She was evaluated by Dr. Fernandez in the office. Most likely this is due to diabetes and hypertension. (2) Acute renal failure: Code(s): N17.9 - Acute kidney failure, unspecified Status: Acute Assessment and Plan: The patient has acute kidney injury on top of her CKD. Renal sono shows ckd, nothing acute urine sodium is high. urine creatinine pending U eos pending ck is slt high not enough to hurt the kidneys a1c is very high, almost 10. I suspect pt has dehydration due to glucosuria and osmotic diuresis. this explains higher creatinine, high urine sodium. no infection or toxic issues suspected. She could have a component of chronic progresion. She dose not seem to have any uremic sx (unless gerd was yesterday but this is better today) urine culture is negative. continue to give fluids and watch numbers. (3) Hypertension: Code(s): I10 - Essential (primary) hypertension Status: Chronic Assessment and Plan: Her blood pressure is high. she back on her outpatient meds will try carvedilol. (4) Diabetes: Code(s): E11.9 - Type 2 diabetes mellitus without complications Status: Chronic Assessment and Plan: The patient has diabetes. Will check an A1c (5) Gastroesophageal reflux: Code(s): K21.9 - Gastro-esophageal reflux disease without esophagitis Status: Acute Assessment and Plan: The patient has gastroesophageal reflux symptoms. synptoms are better. [id number] is getting famotidine for this. (6) Erythropoietin deficiency anemia: Code(s): D63.1 - Anemia in chronic kidney disease Status: Acute Assessment and Plan: Her hemoglobin dropped to 8.8. repeat tomorrow. check stool guaiacs. check irons (7) Pyuria: Code(s): R82.81 - Pyuria Status: Acute Assessment and Plan: The patient has pyuria. Urine culture is negative. Subjective Date/time seen: 02/28/20 17:09 Interval history: alert. feels okay. constipated. no sob. lying flat comfortably Review of Systems Cardiovascular: Cardiovascular: Reports no additional cardiovascular complaints Respiratory: Respiratory: Reports no additional respiratory complaints Gastrointestinal: Gastrointestinal: Reports no additional gastrointestinal complaints Genitourinary: Genitourinary: Reports no additional female genitourinary complaints Exam Narrative: Exam Narrative: WDWN in NAD skin no rash head ncat lungs clear cor reg no rub abd BS+ nontender and soft ext no edema. Objective Data Vital Signs Vital Signs: Vital Signs - 24 hr 02/27/20 18:00 02/27/20 20:00 02/27/20 21:08 Temperature 36.6 C Pulse Rate 85 89 93 Respiratory Rate 20 Blood Pressure 171/91 H Pulse Oximetry 100 02/27/20 22:00 02/27/20 23:25 02/27/20 23:50 Temperature 36.4 C Pulse Rate 82 82 Respiratory Rate 18 Blood Pressure 142/72 H Pulse Oximetry 100 100 02/28/20 00:00 02/28/20 02:00 02/28/20 04:00 Temperature 36.4 C Pulse Rate 92 79 73 Respiratory Rate 18 Blood Pressure 136/61 Pulse Oximetry 98 02/28/20 06:00 02/28/20 08:00 02/28/20 08:23 Temperature 36.6 C Pulse Rate 78 76 Respiratory Rate 12 Blood Pressure 152/82 H Pulse Oximetry 100 98 02/28/20 10:00 02/28/20 12:00 02/28/20 12:37 Temperature 36.6 C Pulse Rate 75 78 85 Respiratory Rate 12 Blood Pressure 170/84 H Pulse Oximetry 95 02/28/20 16:00 Temperature 36.6 C Pulse Rate 88 Respiratory Rate 12 Blood Pressure 178/82 H Pulse Oximetry 100 Intake/Output Intake/Output: Intake & Output 02/25/20 02/26/20 02/27/20 02/28/20 23:59 23:59 23:59 23:59 I
[2020-02-28 18:20] LABS: Iron 22 ug/dL (37-170)
[2020-02-28 18:29] LABS: Percent Iron Saturation 9 % (20-50)
[2020-02-28 18:54] LABS: Folic Acid 5.3 ng/mL (2.76->20)
--- NOTE | 2020-02-28 18:55 | PC.NURSE ---
This patient, Bakair Smith, was received from [facility] on 02/28/20 at 1855. Patient/family oriented to unit policies and routines
[2020-02-28] MEDS: INSULIN GLARGINE (*BKC) 100 UNITS/ML 20 UNITS SUB-Q (21:50)
[2020-02-28] MEDS: carvediloL 12.5 MG TABLET PO (21:50)
[2020-02-28 21:56] LABS: Glucose Point of Care 208 (65-105)
[2020-02-28] MEDS: ACETAMINOPHEN 325 MG TABLET 650 MG PO (22:13)
[2020-02-29] VITALS (7 sets, daily range): BP systolic 149–160; BP diastolic 83–85; PULSE 72–80; RESP 16–20; TEMP 36.6–36.7; O2SAT 100
[2020-02-29] MEDS: SODIUM CHLORIDE 0.9% IV 1,000 ML 75 ML IV CONT ×2 (02:00→15:18)
[2020-02-29 07:01] LABS: Albumin Level 2.9 g/dL (3.5-5.1); Anion Gap 6 mmol/L (8-16); Blood Urea Nitrogen 43 mg/dL (7-17); Calcium 8.1 mg/dL (8.4-10.2); Carbon Dioxide 20 mmol/L (22-30); Chloride 113 mmol/L (98-107); Estimated CRCL calculation 15 ml/min; Estimated Glomerular Filt Rate 9; Glucose 149 mg/dL (65-105); Phosphorus 5.3 mg/dL (2.5-4.5); Potassium 4.8 mmol/L (3.4-5.0); Sodium 139 mmol/L (137-145)
[2020-02-29 07:12] LABS: Hematocrit 30.2 % (37.0-47.0); Hemoglobin 9.5 g/dL (12.0-15.0); Mean Corpuscular HGB Conc 31.5 g/dl (32-36); Mean Corpuscular Hemoglobin 25.7 pg (26-34); Mean Corpuscular Volume 81.8 fl (80-100); Mean Platelet Volume 9.6 fl (7.4-10.4); Platelet Count Result 346 k/mm3 (150-375); Red Blood Count 3.69 M/mm3 (4.2-5.4); Red Cell Distribution Width 13.7 % (11.5-14.5); White Blood Count 8.8 K/mm3 (4.5-10.0)
[2020-02-29 08:33] LABS: Glucose Point of Care 111 (65-105)
[2020-02-29] MEDS: amLODIPine BESYLATE 5 MG TABLET 10 MG PO (09:24)
[2020-02-29] MEDS: FAMOTIDINE 20 MG/2 ML VIAL IV PUSH ×2 (09:24→20:32)
[2020-02-29] MEDS: carvediloL 12.5 MG TABLET PO ×2 (09:24→21:30)
[2020-02-29] MEDS: INSULIN ASPART (*BKC) 100 UNITS/ML SUB-Q ×2 (12:18→17:24)
[2020-02-29 12:38] LABS: Glucose Point of Care 220 (65-105)
[2020-02-29 13:54] LABS: IFOB Positive Control Positive; Immunochemical Fecal Occult Bl Negative (N)
[2020-02-29] MEDS: LABETALOL HCL INJ 100 MG/20 ML VIAL IV PUSH (15:15)
--- NOTE | 2020-02-29 15:44 | PM.IMPN ---
Progress Note: A&P Assessment and Plan (1) Atypical chest pain: Code(s): R07.89 - Other chest pain Status: Acute Assessment and Plan: The patient stated that it felt more like acid reflux. Will continue to trend her troponins. So far they have been negative. I will start her on IV Pepcid. This appears to be more acid reflux. The patient did get some relief with a GI cocktail. Her pain got worse with eating. Her pain did not get worse with exertion and it remained constant throughout the last 3 days. No reproducible pain. Does not radiate to her arms or back. Although she is diabetic and could have atypical symptoms. (2) Acute renal failure: Code(s): N17.9 - Acute kidney failure, unspecified Status: Acute Assessment and Plan: Nephrology has been consulted. Her creatinine is up to 6.1 but the patient stated that her pain got worse whenever she ate so she was avoiding certain foods probably got dehydrated. She has acute on chronic renal failure. It looks like she is stage IV possibly even 5. At 1 point she said her whizzer operator talked about a biopsy. I ordered some labs and a renal ultrasound on her as well some urine as per protocol for acute med surg renal failure. 02/29/20 15:44 patient is a 39-year-old female morbidly obese history of hypertension diabetes and stage 4 chronic kidney disease with baseline creatinine of 3.0, presented emergency department with chest pain 3 sets of cardiac enzymes were negative and there were no acute changes on her EKG suggesting patient did not have acute coronary syndrome however patient creatinine has climbed to 6.1 upon arrival compared to 3 on 04/2019, patient seen by whizzer operator suspect some component of dehydration patient is being hydrated, will continue to monitor kidney function and further workup is in progress, patient kidney ultrasound showed Development of mild bilateral renal atrophy and no hydronephrosis. Today patient was seen by whizzer operator patient hemoglobin A1c is 10 suspecting most likely patient has multifactorial with dehydration as well as diabetic nephropathy patient is being gently hydrated will consult nutrition educator as patient has a uncontrolled diabetes, I have also discussed with the patient regard to her elevated blood sugar and A1c will wait recommendation from nutrition educator and will plan accordingly (3) Diabetes: Code(s): E11.9 - Type 2 diabetes mellitus without complications Status: Chronic Assessment and Plan: I did request for diabetic educators the patient stated she does not always get her insulin and may need some assistance with learning where she can get insulin during those times when she is not available to pay for it. Will do Accu-Cheks AC and HS and cover with sliding scale insulin. Will continue with Basaglar. She said at times she will cover her blood sugars with Lantus. (4) Hypertension: Code(s): I10 - Essential (primary) hypertension Status: Chronic Assessment and Plan: Patient has tried hydralazine in the past and it made her feel like she had lupus-like symptoms. She is on amlodipine low dose. Subjective Date/time seen: 02/29/20 15:44 patient is a 39-year-old female morbidly obese history of hypertension diabetes and stage 4 chronic kidney disease with baseline creatinine of 3.0, presented emergency department with chest pain 3 sets of cardiac enzymes were negative and there were no acute changes on her EKG suggesting patient did not have acute coronary syndrome however patient creatinine has climbed to 6.1 upon arrival compared to 3 on 04/2019, patient seen by whizzer operator suspect some component of dehydration patient is being hydrated, will continue to monitor kidney function and further workup is in progress, patient kidney ultrasound showed Development of mild bilateral renal atrophy and no hydronephrosis. Today patient was seen by nephrol
[2020-02-29 17:24] LABS: Glucose Point of Care 284 (65-105)
--- NOTE | 2020-02-29 17:31 | PM.PNNEP ---
Progress Note: A&P Assessment and Plan (1) CKD (chronic kidney disease) stage 4, GFR 15-29 ml/min: Code(s): N18.4 - Chronic kidney disease, stage 4 (severe) Status: Acute Assessment and Plan: The patient has chronic kidney disease stage 4. She was evaluated by Dr. Fernandez in the office. Most likely this is due to diabetes and hypertension. (2) Acute renal failure: Code(s): N17.9 - Acute kidney failure, unspecified Status: Acute Assessment and Plan: The patient has acute kidney injury on top of her CKD. Renal sono shows ckd, nothing acute urine sodium is high. urine creatinine pending U eos negative ck is slt high not enough to hurt the kidneys a1c is very high, almost 10. ROSHNI due to dehydration. Creatinine is slowly coming down (3) Hypertension: Code(s): I10 - Essential (primary) hypertension Status: Chronic Assessment and Plan: Her blood pressure is doing better. Goal for now is a range of 140-160 then better control in the office in a few months. (4) Diabetes: Code(s): E11.9 - Type 2 diabetes mellitus without complications Status: Chronic Assessment and Plan: The patient has diabetes. A1c is very high (5) Gastroesophageal reflux: Code(s): K21.9 - Gastro-esophageal reflux disease without esophagitis Status: Acute Assessment and Plan: The patient has gastroesophageal reflux symptoms. synptoms are better. She is getting famotidine for this. (6) Erythropoietin deficiency anemia: Code(s): D63.1 - Anemia in chronic kidney disease Status: Acute Assessment and Plan: Her hemoglobin dropped to 8.8 at 1 point and now is 9.5. stool guaiacs are negative check irons (7) Pyuria: Code(s): R82.81 - Pyuria Status: Acute Assessment and Plan: The patient has pyuria. Urine culture is negative. Subjective Date/time seen: 02/29/20 17:31 Interval history: alert. feels okay. no sob. no swelling Exam Narrative: Exam Narrative: WDWN in NAD skin no rash head ncat lungs clear bilaterally cor reg no rub abd BS+ nontender and soft ext no edema or cyanosis Objective Data Vital Signs Vital Signs: Vital Signs - 24 hr 02/28/20 18:16 02/28/20 18:46 02/28/20 18:55 Temperature 36.9 C Pulse Rate 88 89 Respiratory Rate 18 Blood Pressure 160/86 H 179/80 H Pulse Oximetry 100 02/28/20 21:50 02/28/20 22:00 02/28/20 22:05 Temperature 36.9 C Pulse Rate 89 89 89 Respiratory Rate 20 Blood Pressure 182/89 H Pulse Oximetry 100 02/28/20 23:15 02/29/20 06:00 02/29/20 09:24 Temperature 36.7 C Pulse Rate 78 80 Respiratory Rate 20 Blood Pressure 142/78 H 149/83 H Pulse Oximetry 100 02/29/20 14:00 02/29/20 15:15 02/29/20 15:45 Temperature 36.7 C Pulse Rate 77 80 Respiratory Rate 16 Blood Pressure 155/83 H 160/85 H Pulse Oximetry 100 Intake/Output Intake/Output: Intake & Output 02/26/20 02/27/20 02/28/20 02/29/20 23:59 23:59 23:59 23:59 Intake Total 3530 2170 3250 Output Total 900 2000 1725 Balance 2630 170 1525 Meds/Results Medications: Active Medications Generic Name Dose Route Start Last Admin Trade Name Freq PRN Reason Stop Dose Admin Acetaminophen 650 mg 02/27/20 21:37 02/28/20 22:13 Acetaminophen 325 Mg Tablet PO 650 mg Q4H PRN Administration Mild Pain (1-3) or Fever Amlodipine Besylate 10 mg 02/27/20 09:00 02/29/20 09:24 Amlodipine Besylate 5 Mg Tablet PO 10 mg DAILY CHAYO Administration Bisacodyl 5 mg 02/28/20 11:44 02/28/20 12:36 Bisacodyl 5 Mg Tablet Ec PO 5 mg QAM PRN Administration Constipation Carvedilol 12.5 mg 02/28/20 21:00 02/29/20 09:24 Carvedilol 12.5 Mg Tablet PO 12.5 mg Q12HR CHAYO Administration Dextrose 12.5 gm 02/27/20 13:16 Dextrose 50% 25 Gm/50 Ml Syringe IV PUSH PRN PRN Hypoglycemia P
[2020-02-29] MEDS: INSULIN GLARGINE (*BKC) 100 UNITS/ML 20 UNITS SUB-Q (20:33)
[2020-02-29 22:43] LABS: Glucose Point of Care 261 (65-105)
[2020-02-29 23:59] LABS: Anti Streptolysin O Screen <50 IU/mL (<200)
[2020-03-01 00:06] LABS: Osmolality, Urine 380 mOsm/kg (50-1200)
[2020-03-01] MEDS: SODIUM CHLORIDE 0.9% IV 1,000 ML 75 ML IV CONT ×2 (04:38→20:19)
[2020-03-01 06:00] VITALS: BP 147/86; PULSE 73; RESP 20; TEMP 36.7; O2SAT 100
[2020-03-01 06:52] LABS: Hematocrit 28.5 % (37.0-47.0); Hemoglobin 8.9 g/dL (12.0-15.0); Mean Corpuscular HGB Conc 31.2 g/dl (32-36); Mean Corpuscular Hemoglobin 25.3 pg (26-34); Mean Platelet Volume 9.4 fl (7.4-10.4); Platelet Count Result 329 k/mm3 (150-375); Red Blood Count 3.52 M/mm3 (4.2-5.4); Red Cell Distribution Width 13.9 % (11.5-14.5); White Blood Count 7.4 K/mm3 (4.5-10.0)
[2020-03-01 07:05] LABS: Albumin Level 2.7 g/dL (3.5-5.1); Anion Gap 3 mmol/L (8-16); Blood Urea Nitrogen 38 mg/dL (7-17); Carbon Dioxide 20 mmol/L (22-30); Chloride 116 mmol/L (98-107); Estimated CRCL calculation 16 ml/min; Estimated Glomerular Filt Rate 9; Glucose 94 mg/dL (65-105); Phosphorus 4.9 mg/dL (2.5-4.5); Sodium 139 mmol/L (137-145)
[2020-03-01 08:35] LABS: SM Antibody <1.0; SM/RNP Antibody <1.0
[2020-03-01 09:07] LABS: Glucose Point of Care 77 (65-105)
[2020-03-01 09:57] VITALS: PULSE 94
[2020-03-01] MEDS: carvediloL 12.5 MG TABLET PO ×2 (09:57→20:11)
[2020-03-01] MEDS: BISACODYL 5 MG TABLET EC PO (09:57)
[2020-03-01] MEDS: amLODIPine BESYLATE 5 MG TABLET 10 MG PO (09:57)
[2020-03-01] MEDS: FAMOTIDINE 20 MG/2 ML VIAL IV PUSH ×2 (09:59→20:11)
[2020-03-01 12:17] LABS: Glucose Point of Care 140 (65-105)
[2020-03-01 14:00] VITALS: BP 154/94; PULSE 76; RESP 16; TEMP 36.8; O2SAT 100
--- NOTE | 2020-03-01 15:32 | PM.PNNEP ---
Progress Note: A&P Assessment and Plan (1) CKD (chronic kidney disease) stage 4, GFR 15-29 ml/min: Code(s): N18.4 - Chronic kidney disease, stage 4 (severe) Status: Acute Assessment and Plan: The patient has chronic kidney disease stage 4. She was evaluated by Dr. Fernandez in the office. Most likely this is due to diabetes and hypertension. (2) Acute renal failure: Code(s): N17.9 - Acute kidney failure, unspecified Status: Acute Assessment and Plan: The patient has acute kidney injury on top of her CKD. Renal sono shows ckd, nothing acute urine sodium is high. urine creatinine pending U eos negative ck is slt high not enough to hurt the kidneys a1c is very high, almost 10. ROSHNI due to dehydration most likely and hypertensive changes likely playing a role as well.. also some progression of disease is likely. Creatinine is slowly coming down (3) Hypertension: Code(s): I10 - Essential (primary) hypertension Status: Chronic Assessment and Plan: Her blood pressure is ranging from 140 to 160 this is the temporary goal (4) Diabetes: Code(s): E11.9 - Type 2 diabetes mellitus without complications Status: Chronic Assessment and Plan: The patient has diabetes. A1c is very high accuchecks here are pretty good. (5) Gastroesophageal reflux: Code(s): K21.9 - Gastro-esophageal reflux disease without esophagitis Status: Acute Assessment and Plan: The patient has gastroesophageal reflux symptoms. synptoms are better. She is getting famotidine for this. (6) Erythropoietin deficiency anemia: Code(s): D63.1 - Anemia in chronic kidney disease Status: Acute Assessment and Plan: Her hemoglobin dropped to 8.8 at 1 point and now is 9.5. stool guaiacs are negative tsat low. give venofer and use ep (7) Pyuria: Code(s): R82.81 - Pyuria Status: Acute Assessment and Plan: The patient has pyuria. Urine culture is negative. Subjective Date/time seen: 03/01/20 15:32 Interval history: alert. feels okay. no sob. no swelling eating okay Review of Systems Cardiovascular: Cardiovascular: Reports no additional cardiovascular complaints Respiratory: Respiratory: Reports no additional respiratory complaints Gastrointestinal: Gastrointestinal: Reports no additional gastrointestinal complaints Genitourinary: Genitourinary: Reports no additional female genitourinary complaints Exam Narrative: Exam Narrative: WDWN in NAD skin no rash or sq nodules head ncat lungs clear bilaterally cor reg no rub or gallop abd BS+ nontender and soft ext no edema or cyanosis Objective Data Vital Signs Vital Signs: Vital Signs - 24 hr 02/29/20 15:45 02/29/20 21:30 02/29/20 22:00 Temperature 36.6 C Pulse Rate 72 80 Respiratory Rate 20 Blood Pressure 160/85 H 155/84 H Pulse Oximetry 100 03/01/20 06:00 03/01/20 09:57 03/01/20 14:00 Temperature 36.7 C 36.8 C Pulse Rate 73 94 76 Respiratory Rate 20 16 Blood Pressure 147/86 H 154/94 H Pulse Oximetry 100 100 Intake/Output Intake/Output: Intake & Output 02/27/20 02/28/20 02/29/20 03/01/20 23:59 23:59 23:59 23:59 Intake Total 3530 2170 4590 2450 Output Total 900 2000 3075 2400 Balance 2630 170 1515 50 Meds/Results Medications: Active Medications Generic Name Dose Route Start Last Admin Trade Name Freq PRN Reason Stop Dose Admin Acetaminophen 650 mg 02/27/20 21:37 02/28/20 22:13 Acetaminophen 325 Mg Tablet PO 650 mg Q4H PRN Administration Mild Pain (1-3) or Fever Amlodipine Besylate 10 mg 02/27/20 09:00 03/01/20 09:57 Amlodipine Besylate 5 Mg Tablet PO 10 mg DAILY CHAYO Administration Bisacodyl 5 mg 02/28/20 11:44 03/01/20 09:57 Bisacodyl 5 Mg Tablet Ec PO 5 mg QAM PRN Administration Constipation Carvedilol 12.5 mg 02/28/20 21:00 03/01/20
[2020-03-01] MEDS: EPOETIN ALFA-EPBX 10,000 UNITS/ML VIAL 10000 UNITS SUB-Q (16:17)
--- NOTE | 2020-03-01 17:00 | PM.IMPN ---
Progress Note: A&P Assessment and Plan (1) Atypical chest pain: Code(s): R07.89 - Other chest pain Status: Acute Assessment and Plan: The patient stated that it felt more like acid reflux. Will continue to trend her troponins. So far they have been negative. I will start her on IV Pepcid. This appears to be more acid reflux. The patient did get some relief with a GI cocktail. Her pain got worse with eating. Her pain did not get worse with exertion and it remained constant throughout the last 3 days. No reproducible pain. Does not radiate to her arms or back. Although she is diabetic and could have atypical symptoms. (2) Acute renal failure: Code(s): N17.9 - Acute kidney failure, unspecified Status: Acute Assessment and Plan: 03/01/20 17:00 Nephrology has been consulted. Her creatinine is up to 6.1 but the patient stated that her pain got worse whenever she ate so she was avoiding certain foods probably got dehydrated. She has acute on chronic renal failure. It looks like she is stage IV possibly even 5. At 1 point she said her kiln drawer talked about a biopsy. I ordered some labs and a renal ultrasound on her as well some urine as per protocol for acute med surg renal failure. patient is a 39-year-old female morbidly obese history of hypertension diabetes and stage 4 chronic kidney disease with baseline creatinine of 3.0, presented emergency department with chest pain 3 sets of cardiac enzymes were negative and there were no acute changes on her EKG suggesting patient did not have acute coronary syndrome however patient creatinine has climbed to 6.1 upon arrival compared to 3 on 04/2019, patient seen by kiln drawer suspect some component of dehydration patient is being hydrated, will continue to monitor kidney function and further workup is in progress, patient kidney ultrasound showed Development of mild bilateral renal atrophy and no hydronephrosis. Today again patient was seen by kiln drawer patient hemoglobin A1c is 10 suspecting most likely patient has multifactorial with dehydration as well as diabetic nephropathy patient creatinine has improved slightly to 5.4 compare to when she arrive with 6.1, will wait to hear from kiln drawer further recommendation, patient is being gently hydrated will consult insights analyst as patient has a uncontrolled diabetes, I have also discussed with the patient regard to her elevated blood sugar and A1c will wait recommendation from insights analyst and will plan accordingly (3) Diabetes: Code(s): E11.9 - Type 2 diabetes mellitus without complications Status: Chronic Assessment and Plan: I did request for diabetic educators the patient stated she does not always get her insulin and may need some assistance with learning where she can get insulin during those times when she is not available to pay for it. Will do Accu-Cheks AC and HS and cover with sliding scale insulin. Will continue with Basaglar. She said at times she will cover her blood sugars with Lantus. (4) Hypertension: Code(s): I10 - Essential (primary) hypertension Status: Chronic Assessment and Plan: Patient has tried hydralazine in the past and it made her feel like she had lupus-like symptoms. She is on amlodipine low dose. Subjective Date/time seen: 03/01/20 17:00 Nephrology has been consulted. Her creatinine is up to 6.1 but the patient stated that her pain got worse whenever she ate so she was avoiding certain foods probably got dehydrated. She has acute on chronic renal failure. It looks like she is stage IV possibly even 5. At 1 point she said her kiln drawer talked about a biopsy. I ordered some labs and a renal ultrasound on her as well some urine as per protocol for acute med surg renal failure. patient is a 39-year-old female morbidly obese history of hypertension diabetes and stage 4 chronic kidney disease wit
[2020-03-01 17:25] LABS: Glucose Point of Care 182 (65-105)
[2020-03-01 18:04] LABS: Chloride Rand Ur 107 mmol/L (32-290); Chloride/Creatinine Rand Ur 170 (38-318); Creatinine Random Urine 63 mg/dL (20-275)
[2020-03-01 20:11] VITALS: PULSE 80
[2020-03-01] MEDS: INSULIN GLARGINE (*BKC) 100 UNITS/ML 20 UNITS SUB-Q (20:12)
[2020-03-01 21:26] LABS: Glucose Point of Care 237 (65-105)
[2020-03-01 21:30] LABS: ANCA Screen Negative (Negative)
[2020-03-01 22:00] VITALS: BP 148/85; PULSE 81; RESP 18; TEMP 36.9; O2SAT 100
[2020-03-01 22:54] LABS: Albumin 2.8 g/dL (3.8-4.8); Alpha 1 Globulin 0.4 g/dL (0.2-0.3); Beta 1 Globulin 0.4 g/dL (0.4-0.6); Gamma Globulin 1.3 g/dL (0.8-1.7); Protein, Total 6.3 g/dL (6.1-8.1)
[2020-03-01] MEDS: ACETAMINOPHEN 325 MG TABLET 650 MG PO (23:02)
[2020-03-02 05:39] VITALS: BP 143/86; PULSE 70; RESP 20; TEMP 36.9; O2SAT 100
[2020-03-02 06:45] LABS: Albumin Level 2.6 g/dL (3.5-5.1); Anion Gap 5 mmol/L (8-16); Blood Urea Nitrogen 38 mg/dL (7-17); Carbon Dioxide 19 mmol/L (22-30); Chloride 112 mmol/L (98-107); Estimated CRCL calculation 16 ml/min; Estimated Glomerular Filt Rate 9; Glucose 180 mg/dL (65-105); Phosphorus 5.3 mg/dL (2.5-4.5); Potassium 4.7 mmol/L (3.4-5.0); Sodium 136 mmol/L (137-145)
[2020-03-02 08:00] VITALS: PULSE 70; RESP 20; O2SAT 100
[2020-03-02 08:10] LABS: Anti Glomerular Basement Memb <1.0 AI (<1.0)
[2020-03-02 08:33] LABS: Glucose Point of Care 129 (65-105)
[2020-03-02] MEDS: amLODIPine BESYLATE 5 MG TABLET 10 MG PO (10:35)
[2020-03-02] MEDS: carvediloL 12.5 MG TABLET PO (10:35)
[2020-03-02] MEDS: IRON SUCROSE COMPLEX 200 MG in SODIUM CHLORIDE 0.9% IV 50 ML 120 MG IVPB (10:37)
--- NOTE | 2020-03-02 11:21 | PM.PNNEP ---
Progress Note: A&P Assessment and Plan (1) CKD (chronic kidney disease) stage 4, GFR 15-29 ml/min: Code(s): N18.4 - Chronic kidney disease, stage 4 (severe) Status: Acute Assessment and Plan: The patient has chronic kidney disease stage 4. She was evaluated by Dr. Fernandez in the office. Most likely this is due to diabetes and hypertension. (2) Acute renal failure: Code(s): N17.9 - Acute kidney failure, unspecified Status: Acute Assessment and Plan: The patient has acute kidney injury on top of her CKD. Renal sono shows ckd, nothing acute urine sodium is high. urine creatinine pending U eos negative ck is slt high not enough to hurt the kidneys a1c is very high, almost 10. ROSHNI due to dehydration most likely and hypertensive changes likely playing a role as well. Her creatinine is very slowly improving. It is on a definite downward trend. The patient has no symptoms from her kidney disease and she is eating and drinking well. At this point I think she can be discharged from the kidney standpoint. I talked to her at length about keeping her sugars under good control. She will work with her primary care physician and endocrinology to keep the sugars under control. If the sugars go back up again she will get dehydrated again an and upright back in the hospital. Hopefully her renal function will continue to improve. If it stays in the 5 range then she probably will need a fistula placed for dialysis. At this point she does not need dialysis because she has no symptoms and her GFR is above 7. In addition hopefully her renal function will continue to improve. I asked the patient to make an appointment with Dr. Fernandez for Thursday or Thursday and repeat some blood work with him. Discussed with Dr. Del Real (3) Hypertension: Code(s): I10 - Essential (primary) hypertension Status: Chronic Assessment and Plan: Her blood pressure is ranging from 140 to 160 this is the temporary goal (4) Diabetes: Code(s): E11.9 - Type 2 diabetes mellitus without complications Status: Chronic Assessment and Plan: The patient has diabetes. A1c is very high accuchecks here are pretty good. (5) Gastroesophageal reflux: Code(s): K21.9 - Gastro-esophageal reflux disease without esophagitis Status: Acute Assessment and Plan: The patient has gastroesophageal reflux symptoms. synptoms are better. She is getting famotidine for this. (6) Erythropoietin deficiency anemia: Code(s): D63.1 - Anemia in chronic kidney disease Status: Acute Assessment and Plan: Her hemoglobin dropped to 8.8 at 1 point and now is 9.5. stool guaiacs are negative tsat low. on venofer and use epo The patient should be referred to Dr. Jacques as an outpatient as well for continued Epogen administration.. (7) Pyuria: Code(s): R82.81 - Pyuria Status: Acute Assessment and Plan: The patient has pyuria. Urine culture is negative. Subjective Date/time seen: 03/02/20 11:21 Interval history: alert. feels okay. no sob. no swelling eating okay No more GERD symptoms. Review of Systems Cardiovascular: Cardiovascular: Reports no additional cardiovascular complaints Respiratory: Respiratory: Reports no additional respiratory complaints Gastrointestinal: Gastrointestinal: Reports no additional gastrointestinal complaints Genitourinary: Genitourinary: Reports no additional female genitourinary complaints Exam Narrative: Exam Narrative: WDWN in NAD skin no rash or sq nodules head ncat lungs clear to auscultation cor reg no rub or gallop abd BS+ nontender and soft ext no edema Objective Data Vital Signs Vital Signs: Vital Signs - 24 hr 03/01/20 14:00 03/01/20 20:11 03/01/20 22:00 Temperature 36.8 C 36.9 C Pulse Rate 76 80 81 Respiratory Rate 16 18 Blood Pressure 154/94 H 148/85 H Pul
[2020-03-02] MEDS: FAMOTIDINE 20 MG/2 ML VIAL IV PUSH (11:28)
[2020-03-02 12:20] LABS: Glucose Point of Care 170 (65-105)
--- NOTE | 2020-03-02 12:29 | PM.DS ---
DS: Admitting Diagnosis Admitting Diagnosis Admitting Diagnosis: Chief Complaint: Chest pain DS: Discharge Diagnosis Discharge Diagnosis (1) Atypical chest pain: Code(s): R07.89 - Other chest pain Status: Acute Assessment and Plan: The patient stated that it felt more like acid reflux. Will continue to trend her troponins. So far they have been negative. I will start her on IV Pepcid. This appears to be more acid reflux. The patient did get some relief with a GI cocktail. Her pain got worse with eating. Her pain did not get worse with exertion and it remained constant throughout the last 3 days. No reproducible pain. Does not radiate to her arms or back. Although she is diabetic and could have atypical symptoms. (2) Acute renal failure: Code(s): N17.9 - Acute kidney failure, unspecified Status: Acute Assessment and Plan: 03/01/20 17:00 Nephrology has been consulted. Her creatinine is up to 6.1 but the patient stated that her pain got worse whenever she ate so she was avoiding certain foods probably got dehydrated. She has acute on chronic renal failure. It looks like she is stage IV possibly even 5. At 1 point she said her fiberglass bonding machine tender talked about a biopsy. I ordered some labs and a renal ultrasound on her as well some urine as per protocol for acute med surg renal failure. patient is a 39-year-old female morbidly obese history of hypertension diabetes and stage 4 chronic kidney disease with baseline creatinine of 3.0, presented emergency department with chest pain 3 sets of cardiac enzymes were negative and there were no acute changes on her EKG suggesting patient did not have acute coronary syndrome however patient creatinine has climbed to 6.1 upon arrival compared to 3 on 04/2019, patient seen by fiberglass bonding machine tender suspect some component of dehydration patient is being hydrated, will continue to monitor kidney function and further workup is in progress, patient kidney ultrasound showed Development of mild bilateral renal atrophy and no hydronephrosis. Today again patient was seen by fiberglass bonding machine tender patient hemoglobin A1c is 10 suspecting most likely patient has multifactorial with dehydration as well as diabetic nephropathy patient creatinine has improved slightly to 5.4 compare to when she arrive with 6.1, will wait to hear from fiberglass bonding machine tender further recommendation, patient is being gently hydrated will consult fish worm grower as patient has a uncontrolled diabetes, I have also discussed with the patient regard to her elevated blood sugar and A1c will wait recommendation from fish worm grower and will plan accordingly (3) Diabetes: Code(s): E11.9 - Type 2 diabetes mellitus without complications Status: Chronic Assessment and Plan: I did request for diabetic educators the patient stated she does not always get her insulin and may need some assistance with learning where she can get insulin during those times when she is not available to pay for it. Will do Accu-Cheks AC and HS and cover with sliding scale insulin. Will continue with Basaglar. She said at times she will cover her blood sugars with Lantus. (4) Hypertension: Code(s): I10 - Essential (primary) hypertension Status: Chronic Assessment and Plan: Patient has tried hydralazine in the past and it made her feel like she had lupus-like symptoms. She is on amlodipine low dose. 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 The patient stated that her chest pain started on Thursday night She said she felt the acid reflux coming up into her esophagus. She said she ate some Tums but could not stand the taste of the Tums. She said she kept feel like it was the acid was going to come up out of her mouth. But never did. This pain has lasted for 3 days nothing has made it worse o
[2020-03-02 13:53] LABS: Complement Total CH50 >60 U/mL (31-60)
[2020-03-03 19:25] LABS: Creatinine, Random Urine 64 mg/dL (20-275); Total Protein/Creatinine Ratio 7078 mg/g creat (21-161)
== END 2020-03-02 13:25 | disposition home or self-care (01) | DRG 469 ==
LOC: ANHED 09:19 → ANHIMU 10:26 → ANH3MEDSUR 02-28 18:55
PROVIDERS: Internal Medicine Nephrology; Nurse Practitioner; Admitting Provider Family Medicine; Emergency Provider Emergency Medicine; PCP Registered Nurse; Visit Provider Family Medicine
DX: N17.9 Acute kidney failure, unspecified; R07.89 Other chest pain; E11.22 Type 2 diabetes mellitus with diabetic chronic kidney disease; E11.42 Type 2 diabetes mellitus with diabetic polyneuropathy; I12.9 Hypertensive chronic kidney disease with stage 1 through stage 4 chronic kidney disease, or unspecified chronic kidney disease; N18.4 Chronic kidney disease, stage 4 (severe); D63.1 Anemia in chronic kidney disease; E66.01 Morbid (severe) obesity due to excess calories; Z68.41 Body mass index [BMI] 40.0-44.9, adult; E11.65 Type 2 diabetes mellitus with hyperglycemia; E86.0 Dehydration; K21.9 Gastro-esophageal reflux disease without esophagitis; R82.81 Pyuria; K57.10 Diverticulosis of small intestine without perforation or abscess without bleeding; K58.9 Irritable bowel syndrome, unspecified; Z79.4 Long term (current) use of insulin; Z79.899 Other long term (current) drug therapy; Z87.01 Personal history of pneumonia (recurrent)
CPT/HCPCS: 36415; 71046; 76775; 80048; 80069; 80076; 81001; 81025; 82274; 82436; 82550; 82570; 82595; 82607; 82728; 82746; 83036; 83520; 83540; 83550; 83690; 83735; 83883; 83930; 83935; 84100; 84133; 84155; 84156; 84165; 84166; 84300; 84484; 85025; 85027; 85610; 85652; 85730; 85999; 86021; 86038; 86039; 86060; 86140; 86160; 86162; 86215; 86225; 86235; 86334; 86335; 86703; 86705; 86706; 86803; 87086; 87340; 93005; 96361; 96365; 96375; 99291; A9270; G0379; G0432; J0696; J1756; J1815; J2405; J7030; Q5106

== ENCOUNTER 2020-03-25 06:25 | Emergency (ER) | payer MEDICAID, SELFPAY ==
[2020-03-25] VITALS (21 sets, daily range): BP systolic 131–190; BP diastolic 65–95; PULSE 76–89; RESP 9–30; TEMP 36.6; O2SAT 100
[2020-03-25 06:31] LABS: Glucose Point of Care 77 (65-105)
--- NOTE | 2020-03-25 06:34 | PC.NURSE ---
Patient's bedside glucose is 77.
[2020-03-25 06:55] LABS: Add Urine Microscopic? YES; Appearance Urine Clear (Clear); Bacteria Urine Trace /hpf; Bilirubin Urine Negative (Negative); Blood Urine Negative (Negative); Color Urine Straw (Yellow); Glucose Urine UA Negative (Negative); Ketones Urine Negative (Negative); Leukocyte Esterase Ur Negative LEU/UL (Negative); Mucus Urine Rare /lpf; Nitrate Urine Negative (Negative); Protein Urine 3+ mg/dL (Negative); Specific Grav Ur 1.012 (1.001-1.035); Squamous Epithelial Cell Urine Rare /hpf (Few); Urobilinogen Urine Negative mg/dL (<2.0)
--- NOTE | 2020-03-25 07:20 | ECG_ITS ---
Measurements Intervals [place] Rate: 78 P: 55 MD: 134 QRS: -1 QRSD: 83 T: 13 QT: 375 QTc: 428 Interpretive Statements SINUS RHYTHM DELAYED PRECORDIAL R/S TRANSITION BORDERLINE ECG Electronically Signed On 03-25-2020 14:53:39 BILLING COORDINATOR by Tomasz Scott D.O.
[2020-03-25 07:21] LABS: Basophils Absolute Auto 0.1 K/mm3 (0.0-0.1); Basophils Percent Auto 0.6 % (0.2-1.2); Eosinophils Absolute Auto 0.1 K/mm3 (0-0.3); Eosinophils Percent Auto 0.9 % (0-4.4); Hematocrit 33.7 % (37.0-47.0); Hemoglobin 10.3 g/dL (12.0-15.0); Immature Granulocyte Absolute 0.03 K/mm3 (0.00-0.031); Immature Granulocyte Percent A 0.4 % (0-0.5); Mean Corpuscular HGB Conc 30.6 g/dl (32-36); Mean Corpuscular Hemoglobin 25.6 pg (26-34); Mean Corpuscular Volume 83.6 fl (80-100); Monocytes Absolute Auto 0.3 K/mm3 (0.1-0.6); Neutrophils Absolute Auto 5.6 K/mm3 (1.3-6.7); Neutrophils Percent Auto 71.1 % (45.5-73.1); Platelet Count Result 398 k/mm3 (150-375); Red Blood Count 4.03 M/mm3 (4.2-5.4); Red Cell Distribution Width 14.6 % (11.5-14.5); White Blood Count 7.8 K/mm3 (4.5-10.0)
[2020-03-25 07:31] LABS: Anion Gap 3 mmol/L (8-16); Blood Urea Nitrogen 63 mg/dL (7-17); Calcium 8.3 mg/dL (8.4-10.2); Carbon Dioxide 20 mmol/L (22-30); Chloride 114 mmol/L (98-107); Estimated CRCL calculation 13 ml/min; Estimated Glomerular Filt Rate 7; Glucose 185 mg/dL (65-105); Potassium 5.1 mmol/L (3.4-5.0); Sodium 137 mmol/L (137-145)
--- NOTE | 2020-03-25 07:43 | ED.RECABL ---
HPI - Recheck/Abnormal Lab/Rx General Chief Complaint: Recheck/Abnormal Lab/Rx Stated Complaint: low bs Time Seen by Provider: 03/25/20 07:05 Source: patient Mode of arrival: EMS Limitations: no limitations History of Present Illness HPI narrative: Patient is a 40 year old female with history of IDDM, hypertension, chronic kidney disease who presents for evaluation of hypoglycemia. Her daughter states this morning she found patient moaning and drooling. She checked her blood sugar and it was 25, so she called EMS. On EMS arrival, they gave patient glucagon and oral glucose. HEr BP is now 79. Patient states last night at 9pm she gave herself her usual 20 units long acting insulin. She did not check her blood sugar prior to giving herself the insulin. She last checked her BS at 2pm and it was 175. She reports she ate 2 pieces of sausage last night. She ate a normal amount yesterday. She denies any insulin dosage change. She denies any complaints. Related Data Allergies Allergy/AdvReac Type Severity Reaction Status Date / Time metronidazole Allergy Intermediate Rash Verified 02/27/20 11:50 omeprazole Allergy Intermediate Rash Verified 02/27/20 11:50 Review of Systems Review of Systems: All systems reviewed & are unremarkable except as noted in HPI and below PMFSH Past Medical History Medical History (Updated 03/25/20 @ 10:23 by Yelena Cardona MD) Arthritis Right wrist left knee CKD (chronic kidney disease) stage 4, GFR 15-29 ml/min Diabetes Type 2 insulin-dependent Diverticulitis Erythropoietin deficiency anemia Gastroesophageal reflux Hypertension Irritable bowel syndrome Peripheral neuropathy Pneumonia Pyuria Surgical History Surgical History Delivery by section X3 History of salpingo-oophorectomy History of tubal ligation Hx of appendectomy Hx of cholecystectomy Family History Family History Mother Diabetes mellitus Breast cancer Sibling History of blood clots Father Hypertension Prostate carcinoma Social History Social History Social History: 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 She is a lifelong nonsmoker. She use marijuana in her teenage years but none since then. She occasionally has a glass a wine. She has 3 children. She is single. Her oldest daughter is a durable power [place] attorney for healthcare. The patient desires to be a full code. Smoking status: Never smoker Second hand tobacco smoke exposure: Yes Alcohol intake: unknown Substance use: unknown Gender identity (if verbalized by the patient): Female Spiritual care concerns: No Exam Narrative: Exam Narrative: GENERAL: Well-appearing, well-nourished, and in no acute distress. HEAD: Normocephalic, atraumatic EYES: PERRLA and EOMI, conjunctiva clear without discharge THROAT:Mucous membranes moist, Oropharynx normal without erythema, exudate, peritonsillar swelling or fluctuance NECK: Supple, without lymphadenopathy or mass RESPIRATORY: No respiratory distress, Airway patent, Respirations non-labored, Clear to auscultation without rales, rhonchi or wheeze HEART: Regular rate and rhythm. No murmur heard. Normal peripheral pulses. ABDOMEN: Soft, nontender, nondistended, normal active bowel sounds. No masses. No rebound or guarding, No organomegaly. EXTREMITIES: No edema, normal strength with full range of motion. SKIN: Warm, dry, normal color without rash NEURO: Alert and oriented x3. CN 2-12 grossly intact. No focal deficits. PSYCH: Normal mood and affect. Course Reevaluation(s) Reevaluation #1: I have discussed with patient that labs show worsening kidney function and she may need dialysis soon. She was given return precautions. She understands she will need to follow up with Dr. Fernandez closely.
[2020-03-25 07:56] LABS: Glucose Point of Care 210 (65-105)
[2020-03-25] MEDS: SODIUM CHLORIDE 0.9% IV 1,000 ML 999 ML IV CONT (08:30)
[2020-03-25] MEDS: carvediloL 12.5 MG TABLET PO (09:54)
[2020-03-25] MEDS: amLODIPine BESYLATE 5 MG TABLET 10 MG PO (09:54)
[2020-03-25 10:05] LABS: Glucose Point of Care 240 (65-105)
--- NOTE | 2020-03-25 10:46 | PC.NURSE ---
waiting on family to arrive with clothing so that she may be d/c home
== END 2020-03-25 11:43 | disposition home or self-care (01) ==
PROVIDERS: Emergency Medicine; Emergency Provider General Practice; PCP Registered Nurse
DX: E11.649 Type 2 diabetes mellitus with hypoglycemia without coma (principal); I12.9 Hypertensive chronic kidney disease with stage 1 through stage 4 chronic kidney disease, or unspecified chronic kidney disease; E11.22 Type 2 diabetes mellitus with diabetic chronic kidney disease; N18.4 Chronic kidney disease, stage 4 (severe); Z79.4 Long term (current) use of insulin
CPT/HCPCS: 36415; 80048; 81001; 81025; 82948; 85025; 87086; 87088; 93005; 96360; 99283; A9270; J7030

== ENCOUNTER 2020-11-20 21:53 | Emergency (ER) | payer OTHER, SELFPAY ==
[2020-11-20 22:13] VITALS: BP 177/118; PULSE 94; RESP 18; TEMP 35.8; O2SAT 100
[2020-11-21 00:51] LABS: Add Urine Microscopic? YES; Appearance Urine Clear (Clear); Bilirubin Urine Negative (Negative); Blood Urine 1+ (Negative); Color Urine Colorless (Yellow); Glucose Urine UA 3+ mg/dL (Negative); Ketones Urine Negative (Negative); Leukocyte Esterase Ur Negative LEU/UL (Negative); Nitrate Urine Negative (Negative); Protein Urine 3+ mg/dL (Negative); Specific Grav Ur 1.009 (1.001-1.035); Urobilinogen Urine Negative mg/dL (<2.0)
--- NOTE | 2020-11-21 02:48 | ED.FEMALEGU ---
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 Patient reports she was sexually active with a partner on Thursday and he told her felt off on Thursday. She reports he called her yesterday stating that he had trichomonas so she came to ER for evaluation. She denies abdominal pain, vaginal discharge, vaginal itching. She reports she was only active with him once and he was wearing a condom. She states despite using a condom , the condom appear to be torn when they were done with sexual intercourse. Related Data Allergies Allergy/AdvReac Type Severity Reaction Status Date / Time metronidazole Allergy Intermediate Rash Verified 11/21/20 01:16 omeprazole Allergy Intermediate Rash Verified 11/21/20 01:16 Review of Systems Review of Systems: All systems reviewed & are unremarkable except as noted in HPI and below PMFSH Past Medical History Medical History Arthritis Right wrist left knee CKD (chronic kidney disease) stage 4, GFR 15-29 ml/min Diabetes Type 2 insulin-dependent Diverticulitis Erythropoietin deficiency anemia Gastroesophageal reflux Hypertension Irritable bowel syndrome Peripheral neuropathy Pneumonia Pyuria Surgical History Surgical History Delivery by section X3 History of salpingo-oophorectomy History of tubal ligation Hx of appendectomy Hx of cholecystectomy Family History Family History Mother Diabetes mellitus Breast cancer Sibling History of blood clots Father Hypertension Prostate carcinoma Social History Social History Social History: 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 She is a lifelong nonsmoker. She use marijuana in her teenage years but none since then. She occasionally has a glass a wine. She has 3 children. She is single. Her oldest daughter is a durable power insurance defense attorney for healthcare. The patient desires to be a full code. Smoking status: Never smoker Second hand tobacco smoke exposure: Yes Alcohol intake: unknown Substance use: unknown Gender identity (if verbalized by the patient): Female Spiritual care concerns: No Exam Const: General: no acute distress and alert Orientation/consciousness: patient oriented x3 Eyes: EOM: EOMs intact bilaterally Chest: Chest palpation & inspection: normal inspection of the chest Resp: Effort & Inspection: normal respiratory effort GI: GI Palp: Yes Soft to palpation, No Tenderness to palpation present (GI) and No Guarding due to palpation present (GI) Auscultation: normal bowel sounds : Speculum Exam - Cervix: normal appearance of the cervix and Cervical os closed Bimanual exam- vagina & uterus: no cervical motion tenderness Bimanual Exam- Adnexa, other: adnexal mass Other: white discharge consistent with candidiasis Skin: General skin exam: normal color Rashes: no rashes Neuro: General: patient oriented x3, moves all extremities and CN's II-XI intact bilaterally Extrem: General: normal to inspection Psych: Mental Status: mental status grossly normal Affect: normal affect Course Reevaluation(s) Reevaluation #1: PAtient presented for possible trichomonas exposure. Metronidazole is charted as an allergy in patient's chart but she is not aware of having any allergies to this medication. I discussed there is no option for treatment of trichomonas other than flagyl . Patient was agreeable to taking medication and being monitored. She has been given flagyl over course o
[2020-11-21] MEDS: metroNIDAZOLE 250 MG TABLET 500 MG PO ×2 (02:57→04:32)
[2020-11-21] MEDS: FLUCONAZOLE 150 MG TABLET PO (02:58)
[2020-11-21] MEDS: metroNIDAZOLE 250 MG TABLET 1000 MG PO (05:43)
[2020-11-21 06:45] VITALS: BP 180/90; PULSE 80; RESP 18; O2SAT 100
== END 2020-11-21 06:47 | disposition home or self-care (01) ==
PROVIDERS: Emergency Provider General Practice; PCP Registered Nurse
DX: A59.01 Trichomonal vulvovaginitis (principal); B37.3 Candidiasis of vulva and vagina; E11.22 Type 2 diabetes mellitus with diabetic chronic kidney disease; I12.9 Hypertensive chronic kidney disease with stage 1 through stage 4 chronic kidney disease, or unspecified chronic kidney disease; N18.4 Chronic kidney disease, stage 4 (severe); D63.1 Anemia in chronic kidney disease; E11.42 Type 2 diabetes mellitus with diabetic polyneuropathy; K21.9 Gastro-esophageal reflux disease without esophagitis; M17.11 Unilateral primary osteoarthritis, right knee; Z87.01 Personal history of pneumonia (recurrent); Z79.4 Long term (current) use of insulin
CPT/HCPCS: 81001; 81025; 87070; 87491; 87591; 87808; 99284; A9270

== ENCOUNTER 2021-01-19 20:52 | Inpatient (IN) | payer OTHER, SELFPAY ==
[2021-01-19] VITALS (21 sets, daily range): BP systolic 194–210; BP diastolic 99–132; PULSE 84–100; RESP 12–28; TEMP 36.4; O2SAT 98–100
--- NOTE | ~2021-01-19 | XR_ITS ---
EXAMINATION: XR chest port-a-cath/central EXAM DATE: 01/24/2021 12:43 INDICATION: Dialysis catheter position. TECHNIQUE: Portable AP frontal chest x-ray was obtained. Comparison is made to prior examination from 01/21/2021. FINDINGS: Right IJ approach double lumen Lira dialysis catheter tip has retracted compared to prev ious examination, is overlying expected location of the right brachycephalic vein. The lungs are tom r. There are no pleural effusions. The cardiomediastinal silhouette is within normal limits. There is no pneumothorax suspected. The bones and soft tissues are unremarkable. IMPRESSION: Retracted right dialysis catheter tip out of the SVC. Reviewed, dictated and finalized at location A. R OFF DRYING KILN
--- NOTE | ~2021-01-19 | XR_ITS ---
EXAMINATION: XR fl guide central line place DATE: 01/26/2021 10:21 INDICATION: Central line placement. TECHNIQUE: 2 intraoperative fluoroscopic views of the chest were obtained. I was not present. Fluoros copy exposure time was 87 seconds. COMPARISON: Chest single view 01/26/2021 FINDINGS: A right internal jugular central venous catheter is seen with tip in the right atrium. IMPRESSION: 1. Central line tip in right atrium. Reviewed, dictated and finalized at location A. NTEER SERVICES SPECIALIST
--- NOTE | ~2021-01-19 | XR_ITS ---
EXAMINATION: XR fl guide central line place DATE: 01/21/2021 16:00 INDICATION: Central line placement. TECHNIQUE: 4 intraoperative fluoroscopic views of the chest were obtained. I was not present. Fluoros copy exposure time was 10 seconds. COMPARISON: Chest 2 views 01/19/2021 FINDINGS: There is a right internal jugular central venous catheter with tip at superior cavoatrial j unction. No pneumothorax. IMPRESSION: 1. Central line tip at superior cavoatrial junction. Reviewed, dictated and finalized at location A. NG VAN DRIVER
--- NOTE | ~2021-01-19 | US_ITS ---
EXAMINATION: US venous doppler UE RT DATE: 01/28/2021 15:54 INDICATION: Right upper showed a swelling TECHNIQUE: Grayscale ultrasound images without and with compression and Doppler ultrasound images of the right upper extremity veins were obtained. COMPARISON: None. FINDINGS: Subclavian vein is somewhat obscured by the Port-A-Cath dressing but appears patent. The right internet sales associate al jugular vein, axillary vein, brachial veins, basilic vein, cephalic vein, radial vein, and ulnar v ein are patent. IMPRESSION: 1. No evidence of deep venous thrombosis. Reviewed, dictated and finalized at location A. MENT PROCESSING SPECIALIST
--- NOTE | ~2021-01-19 | XR_ITS ---
EXAMINATION: XR chest 2V DATE: 01/19/2021 21:43 INDICATION: Chest tightness and shortness of breath TECHNIQUE: PA and lateral views of the chest are obtained. COMPARISON: 02/27/2020 FINDINGS: The lungs are free of acute opacities. There is no pleural effusion or pneumothorax. The ca rdiomediastinal silhouette is normal. There is mild thoracic spondylosis. IMPRESSION: 1. No acute cardiopulmonary abnormality. Reviewed, dictated and finalized at location A. SOR TO COMMAND IN COMBAT
--- NOTE | ~2021-01-19 | XR_ITS ---
EXAMINATION: XR chest 1V portable DATE: 01/26/2021 10:39 INDICATION: Right-sided tunneled dialysis catheter TECHNIQUE: frontal view of the chest was obtained. COMPARISON: Chest radiograph dated 01/24/2021 FINDINGS: Interval exchange of a tunneled right internal jugular central venous dialysis catheter with distal t ip now in the high right atrium. Lungs remain clear with no focal airspace opacities, pulmonary edema , pleural effusion or pneumothorax. The cardiomediastinal silhouette is normal. IMPRESSION: 1. Interval exchange of a tunneled right central jugular central venous dialysis catheter with distal tip now in the high right atrium. Reviewed, dictated and finalized at location A. KET WINDER HELPER IMPRESSION: 1. Interval exchange of a tunneled right central jugular central venous dialysi s catheter with distal tip now in the high right atrium.
--- NOTE | ~2021-01-19 | CT_ITS ---
EXAMINATION: CT diagnostic chest wo con EXAM DATE: 01/22/2021 15:14 INDICATION: Chest tightness with dialysis. TECHNIQUE: Spiral CT of the chest without contrast. Axial, coronal and sagittal images of the chest were reviewed. Coronal maximum intensity pixel images of chest reviewed. The dose-length product ( DLP) for this examination was 758.39 mGy-cm. The exposure was tailored according to patient size (au to mA exposure control), and iterative reconstruction (ASIR) was used as additional dose reduction te chnique. Correlation is made to chest x-ray from yesterday. FINDINGS: Small amount of gas along the superficial portion of the right-sided dialysis catheter. Th is is probably an IJ approach, with the cephalad-most loop not imaged. Distal tip is in the right bra chiocephalic vein, just above the junction with the left brachiocephalic vein, above the SVC. Correla ting with a chest x-ray from yesterday, tip appears slightly more retracted, higher position but this could be somewhat technical given patient's arms were raised for this examination. This is higher th an expected position. There is no mediastinal hematoma. Mild cardiomegaly. There are no pleural or pericardial effusions. Tracheobronchial tree is patent. There is no media stinal, hilar or axillary lymphadenopathy. There is no pneumothorax. No evidence of coronary harika rial calcification. There are cholecystectomy clips. There is thoracic spondylosis without osteobla stic or osteolytic lesions identified. IMPRESSION: 1. Lira dialysis catheter with tip retracted to the brachiocephalic vein just above the SVC (this may be somewhat positional given that patient's arms were raised above her head for this examination ). 2. Small amount of gas and fat stranding along the superficial portion of the stent. No focal hemato ma or gross extravasation. 3. No acute cardiopulmonary findings. Reviewed, dictated and finalized at location A. EYOR GEOPHYSICAL PROSPECTING IMPRESSION: 1. Lira dialysis catheter with tip retracted to the brachiocephalic vein ju st above the SVC (this may be somewhat positional given that patient's arms wer e raised above her head for this examination). 2. Small amount of gas and fat stranding along the superficial portion of the stent. No focal hematoma or gross extravasation. 3. No acute cardiopulmonary findings.
--- NOTE | ~2021-01-19 | XR_ITS ---
EXAMINATION: XR chest port-a-cath/central DATE: 01/21/2021 16:27 INDICATION: Central line placement. TECHNIQUE: A single frontal view of the chest was obtained. COMPARISON: Chest 2 views 12/19/2020, chest CT 06/15/2018 FINDINGS: There is mild atelectasis in the lower lung zones. No pleural effusion or pneumothorax. Car diomegaly is noted. There is a right internal jugular central venous catheter with tip in superior ve na cava. IMPRESSION: 1. Central line tip in superior vena cava. 2. Mild atelectasis in the lower lung zones. 3. Cardiomegaly. Reviewed, dictated and finalized at location A. OMER CARE ASSISTANT
--- NOTE | ~2021-01-19 | US_ITS ---
US renal BI 01/20/2021 12:26 Procedure: Realtime transabdominal ultrasound of the kidneys and bladder. Indication: Renal failure Comparison: Ultrasound dated 02/27/2020 Findings: Renal echotexture is normal bilaterally without hydronephrosis, contour deforming mass or r enal calculus. There is a 1.6 cm right renal cyst. The right kidney measures 8.6 cm and left kidney m easures 9.2 cm. Bladder is not adequately distended for evaluation. Impression: 1: Right renal cyst measuring 1.6 cm. Otherwise, unremarkable renal ultrasound. Reviewed, dictated and finalized at location A. ER MACHINE Impression: 1: Right renal cyst measuring 1.6 cm. Otherwise, unremarkable renal ultrasound.
--- NOTE | ~2021-01-19 | NM_ITS ---
EXAMINATION: NM akhil stress w perfusion DATE: 01/23/2021 11:38 INDICATION: Chest pain. Elevated troponin. TECHNIQUE: Rest images were obtained following intravenous administration of 10.3 mCi Tc99m tetrofosm in (Myoview). The patient was infused intravenously with Lexiscan (Regadenoson). Then, 31.8 mCi Tc99m tetrofosmin (Myoview) was administered intravenously, and stress images were obtained. Data was won nstructed into short axis and horizontal and vertical long axis SPECT images. Gated SPECT images were also obtained. COMPARISON: None. FINDINGS: There is no definite reversible or fixed perfusion abnormality to suggest ischemia or infar ction. There is normal left ventricular chamber size, wall motion and ejection fraction. Left ventr icular ejection fraction measures 56%. IMPRESSION: 1. Normal myocardial perfusion at rest and during stress. 2. Left ventricular ejection fraction measuring 56%. Reviewed, dictated and finalized at location A. PROTECTOR
--- NOTE | 2021-01-19 21:11 | ECG_ITS ---
Measurements Intervals [place] Rate: 85 P: 55 MN: 145 QRS: 0 QRSD: 81 T: 69 QT: 417 QTc: 497 Interpretive Statements SINUS RHYTHM CANNOT RULE OUT SEPTAL INFARCT, AGE INDETERMINATE BORDERLINE ST-T WAVE ABNORMALITY- INF/HIGH LAT LEADS BASELINE ARTIFACT- II, AVF, V3-V6 ABNORMAL ECG Electronically Signed On 01-20-2021 9:26:49 FAMILY SERVICES SPECIALIST by Tomasz Scott D.O.
--- NOTE | 2021-01-19 21:30 | PC.NURSE ---
Pt ambulatory to ED, c/o cough and congestion x 2 days, with associated chest pain. pt reports she last took amlodipine for htn 2 days ago. also reports she takes no other home meds because she has not had health insurance, and she does not check her blood sugar. No pcp.
--- NOTE | 2021-01-19 21:55 | ED.URI ---
HPI - URI/Sore Throat General Chief Complaint: Upper Respiratory Infection Stated Complaint: pneumonia?? Time Seen by Provider: 01/19/21 21:08 Source: patient History of Present Illness HPI Narrative: Patient presents with chest pain he states that started yesterday. She is feels very tight in her chest and she needs to get something out of her chest but she does not have enough air to do so. Her symptoms persisted for the past 24 hours so she came to the ER for evaluation. She denies cough or congestion she denies any fever she denies pain. She denies any nausea or vomiting she denies any diaphoresis. She denies any urinary symptoms. Reports a history of diabetes and hypertension. She reports she has not had insurance has not been taking any of her medications. She reports she is not vaccinated against Covid and has not had any sick contacts Related Data Allergies Allergy/AdvReac Type Severity Reaction Status Date / Time metronidazole Allergy Intermediate Rash Verified 01/19/21 21:13 omeprazole Allergy Intermediate Rash Verified 01/19/21 21:13 Review of Systems Review of Systems: CONSTITUTIONAL: Denies fever, chills, or sweats. EYES: Denies visual changes, redness, or discharge. ENT: Denies rhinorrhea, congestion, sore throat, or otalgia. CARDIOVASCULAR: Denies palpitations, or edema. RESPIRATORY: Denies cough GASTROINTESTINAL: Denies abdominal pain, nausea, vomiting, or diarrhea. GENITOURINARY: Denies dysuria or hematuria. SKIN: Denies rash or itching. MUSCULOSKELETAL: Denies back pain, joint pain, or myalgia. NEUROLOGIC: Denies headache, numbness, dizziness, or weakness. PSYCHIATRIC: Denies anxiety or depression. All systems reviewed & are unremarkable except as noted in HPI and below PMFSH Past Medical History Medical History Arthritis Right wrist left knee CKD (chronic kidney disease) stage 4, GFR 15-29 ml/min Diabetes Type 2 insulin-dependent Diverticulitis Erythropoietin deficiency anemia Gastroesophageal reflux Hypertension Irritable bowel syndrome Peripheral neuropathy Pneumonia Pyuria Surgical History Surgical History Delivery by section X3 History of salpingo-oophorectomy History of tubal ligation Hx of appendectomy Hx of cholecystectomy Family History Family History Mother Diabetes mellitus Breast cancer Sibling History of blood clots Father Hypertension Prostate carcinoma Social History Social History Social History: 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 She is a lifelong nonsmoker. She use marijuana in her teenage years but none since then. She occasionally has a glass a wine. She has 3 children. She is single. Her oldest daughter is a durable power erisa attorney for healthcare. The patient desires to be a full code. Smoking status: Never smoker Second hand tobacco smoke exposure: Yes Alcohol intake: unknown Substance use: unknown Gender identity (if verbalized by the patient): Female Spiritual care concerns: No Exam Narrative: GENERAL: Well-appearing, well-nourished, and in no acute distress. HEAD: Normocephalic, atraumatic. EYES: PERRLA and EOMI. ENT: Nares clear, no rhinorrhea or epistaxis. Mucous membranes moist. NECK: Supple. No masses. No JVD CHEST: Clear to auscultation. No respiratory distress. No wheezes rales or rhonchi HEART: Regular rate and rhythm. No murmur heard. Normal peripheral pulses. ABDOMEN: Soft, nontender, nondistended, normal active bowel sounds. EXTREMITIES: Normal range of motion. 1+ symmetric pitting edema in the bilateral lower extremities. SKIN: Warm, dry, no rash. NEURO: No focal deficits. Alert and oriented x3. PSYCH: Normal mood and affect. Course Reevaluation(s) Reevaluation #1: Juan J
[2021-01-19 22:07] LABS: Basophils Absolute Auto 0.1 K/mm3 (0.0-0.1); Basophils Percent Auto 0.6 % (0.2-1.2); Eosinophils Absolute Auto 0.3 K/mm3 (0-0.3); Eosinophils Percent Auto 2.6 % (0-4.4); Hematocrit 24.6 % (37.0-47.0); Hemoglobin 7.7 g/dL (12.0-15.0); Immature Granulocyte Absolute 0.05 K/mm3 (0.00-0.031); Immature Granulocyte Percent A 0.5 % (0-0.5); Immature Platelet Fraction Pct 1.9 % (0.9-11.2); Lymphocytes Absolute Auto 2.61 K/mm3 (0.9-3.2); Lymphocytes Percent Auto 27.5 % (18.3-44.2); Mean Corpuscular HGB Conc 31.3 g/dl (32-36); Mean Corpuscular Hemoglobin 25.9 pg (26-34); Mean Corpuscular Volume 82.8 fl (80-100); Mean Platelet Volume 9.7 fl (7.4-10.4); Monocytes Absolute Auto 0.6 K/mm3 (0.1-0.6); Monocytes Percent Auto 6.1 % (2.6-8.5); Neutrophils Percent Auto 62.7 % (45.5-73.1); Platelet Count Result 259 k/mm3 (150-375); Red Blood Count 2.97 M/mm3 (4.2-5.4); Red Cell Distribution Width 16.2 % (11.5-14.5); White Blood Count 9.5 K/mm3 (4.5-10.0)
[2021-01-19 22:18] LABS: Add Urine Microscopic? YES; Appearance Urine Clear (Clear); Bilirubin Urine Negative (Negative); Blood Urine 1+ (Negative); Color Urine Straw (Yellow); Glucose Urine UA 1+ mg/dL (Negative); Ketones Urine Negative (Negative); Leukocyte Esterase Ur Negative LEU/UL (Negative); Nitrate Urine Negative (Negative); Protein Urine 3+ mg/dL (Negative); RBC Urine 0-2 /hpf (0-2); Squamous Epithelial Cell Urine Rare /hpf (Few); Urobilinogen Urine Negative mg/dL (<2.0)
[2021-01-19 22:21] LABS: Platelet Estimate Adequate (Adequate)
[2021-01-19 22:22] LABS: Anisocytosis 2+ (NORMAL); Hypochromasia 1+ (NORMAL)
[2021-01-19 22:33] LABS: Alanine Aminotransferase 24 U/L (4-35); Albumin Level 3.7 g/dL (3.5-5.1); Alkaline Phosphatase 206 U/L (38-126); Anion Gap 12 mmol/L (8-16); Aspartate Amino Transferase 38 U/L (14-36); Bilirubin,Total 0.2 mg/dL (0.2-1.3); Blood Urea Nitrogen 95 mg/dL (7-17); Calcium 5.5 mg/dL (8.4-10.2); Carbon Dioxide 17 mmol/L (22-30); Chloride 106 mmol/L (98-107); Estimated CRCL calculation 6 ml/min; Estimated Glomerular Filt Rate 3; Glucose 105 mg/dL (65-110); Potassium 4.9 mmol/L (3.4-5.0); Sodium 135 mmol/L (137-145)
[2021-01-19] MEDS: ALBUTEROL SULFATE NEB 2.5 MG/0.5 ML INH 5 MG INHALATION (22:40)
[2021-01-19] MEDS: IPRATROPIUM BR 0.02% INH SOLN 0.5 MG/2.5 ML VIAL INHALATION (22:40)
[2021-01-19 22:45] LABS: Troponin I 0.032 ng/mL (0.000-0.034)
[2021-01-19] MEDS: SODIUM CHLORIDE 0.9% IV 500 ML 999 ML IV CONT (23:03)
[2021-01-19] MEDS: METOPROLOL TARTRATE INJ 5 MG/5 ML VIAL IV PUSH (23:04)
--- NOTE | 2021-01-19 23:15 | PM.IMHP ---
H&P: HPI History of Present Illness Date/Time: 01/19/21 23:15 Chief Complaint: Chest discomfort Narrative: This is a 40-year-old female with past medical history significant for malignant hypertension, chronic kidney disease, type 2 diabetes mellitus. Patient presented to the emergency room due to chest discomfort since last states that is like someone sitting on her chest she did not try taking any medications or did anything to make it go away decided to come to the emergency room today after it got worse she denies any blurry vision, any headaches, any radiation of the pain to the neck jaw, or shoulders ,no tingling or numbness sensation of finger tips, no leg swelling, no calf pain ,no P,ND no orthopnea, no lightheadedness, no dizziness, no syncope or near syncope, no shortness of breath, no palpitations, no fevers ,no rigors, no chills. Has had a nonproductive cough persist, has sensation of something stuck in her chest when she swallows however no dysphagia or odynophagia she has been able to eat all her meals and drink as well, she denies any hematemesis, bright red blood per rectum, melena. Preliminary workup was significant for systolic blood pressure in the 200s and diastolic in the 100's upon arrival to the emergency room, a chemistry panel showed a creatinine level of 13 and a BUN of 95 a CBC panel showed a hemoglobin of 7.7 with hematocrit of 24. Patient has been admitted for further evaluation management and treatment. Review of Systems Review of Systems: Chest discomfort, chest pressure, tightness like someone sitting on her chest, persistent dry cough. Constitutional: Constitutional: Denies chills, Denies fatigue, Denies fever(s), Denies lethargy, Denies malaise and Denies weakness Eyes: Eyes: Denies change in vision, Denies diplopia, Denies other visual disturbances and Denies spots in vision ENT: Denies dysphagia, Denies vertigo, Denies dizziness, Reports epistaxis, Denies nasal congestion, Denies nasal discharge, Denies nasal obstruction, Denies odynophagia, Denies disequilibrium and Denies tinnitus Cardiovascular: Cardiovascular: Reports chest pain, Denies irregular heart rhythm, Denies lightheadedness, Denies radiating jaw, neck or arm pain, Denies palpitations, Denies dyspnea, Denies dyspnea on exertion and Denies orthopnea Respiratory: Respiratory: Reports cough and Denies dyspnea Gastrointestinal: Gastrointestinal: Denies abdominal pain, Denies melena, Denies coffee ground emesis, Denies dysphagia, Denies dyspepsia, Denies heartburn, Denies diarrhea, Denies nausea and Denies vomiting Genitourinary: Genitourinary: Denies abnormal vaginal bleeding and Denies menorrhagia Musculoskeletal: Musculoskeletal: Denies arthralgias and Denies joint swelling Integumentary/Breasts: Skin/Breast: Denies rash Neurologic: Denies vertigo, Denies dizziness, Denies syncope, Denies lack of coordination, Denies focal weakness, Denies numbness, Denies restless legs, Denies Sensory deficit (Neuro), Denies tingling and Denies paresthesias Psychiatric: Psychiatric: Reports no additional psychiatric complaints and Reports as per HPI Endocrine: Endocrine: Reports no additional endocrine complaints and Reports as per HPI Hematologic/Lymphatic: Hematologic/Lymphatic: Reports no additional hematologic/lymphatic complaints and Reports as per HPI Allergic/Immunologic: Allergic/Immunologic: Reports no additional allergic/immunologic complaints and Reports as per HPI [facility] Past Medical History Medical History Arthritis Right wrist left knee CKD (chronic kidney disease) stage 4, GFR 15-29 ml/min Diabetes Type 2 insulin-dependent Diverticulitis Erythropoietin deficiency anemia Gastroesophageal reflux Hypertension Irritable bowel syndrome Peripheral neuropathy Pneumonia Pyuria Surgical History Surgical History Delivery by [facility]
[2021-01-19] MEDS: CALCIUM CHLORIDE 1,000 MG/10 ML SYRINGE 1000 MG IV PUSH (23:17)
[2021-01-20] VITALS (30 sets, daily range): BP systolic 154–215; BP diastolic 79–119; PULSE 83–107; RESP 13–20; TEMP 36.3–37.2; O2SAT 95–100; BMI 41.9
--- NOTE | 2021-01-20 00:48 | PC.NURSE ---
Dr. Rodriguez paged by hospital product specialist re: pt's bp remains elevated. TORB received for Labetalol 10 mg ivp x 1 dose; wants SBP < 190.
[2021-01-20] MEDS: LABETALOL HCL INJ 100 MG/20 ML VIAL 10 MG IV PUSH (00:52)
--- NOTE | 2021-01-20 01:09 | ADMGEN ---
This patient, Bakari Smith, was admitted to IMU Room 206-01. Patient/family oriented to hospital policies and general routines including ID bracelet, bed and alarms, visiting hours, pain management, procedures, bathroom and other care routines, personal items, smoking policy, room service/diet, and visiting hours. Information on how to activate the Rapid Response Team has been discussed. Patient/Family are encouraged to report perceived risks to care and to ask questions if they do not understand what they are told or what they should do.
[2021-01-20] MEDS: lisinopriL 20 MG TABLET 40 MG PO (05:19)
[2021-01-20 07:24] LABS: Hemoglobin A1C 6.1 % (<5.7)
[2021-01-20 07:26] LABS: Alanine Aminotransferase 20 U/L (4-35); Albumin Level 3.3 g/dL (3.5-5.1); Alkaline Phosphatase 170 U/L (38-126); Anion Gap 14 mmol/L (8-16); Aspartate Amino Transferase 27 U/L (14-36); Bilirubin,Total 0.2 mg/dL (0.2-1.3); Blood Urea Nitrogen 96 mg/dL (7-17); Calcium 5.9 mg/dL (8.4-10.2); Carbon Dioxide 16 mmol/L (22-30); Chloride 107 mmol/L (98-107); Estimated CRCL calculation 6 ml/min; Estimated Glomerular Filt Rate 3; Glucose 249 mg/dL (65-110); Potassium 5.1 mmol/L (3.4-5.0); Sodium 137 mmol/L (137-145)
[2021-01-20 07:35] LABS: Albumin Level 3.3 g/dL (3.5-5.1); Anion Gap 13 mmol/L (8-16); Blood Urea Nitrogen 96 mg/dL (7-17); Carbon Dioxide 16 mmol/L (22-30); Chloride 107 mmol/L (98-107); Estimated CRCL calculation 6 ml/min; Estimated Glomerular Filt Rate 3; Glucose 248 mg/dL (65-110); Phosphorus 8.7 mg/dL (2.5-4.5); Potassium 5.1 mmol/L (3.4-5.0); Sodium 136 mmol/L (137-145)
[2021-01-20 07:37] LABS: Troponin I 0.024 ng/mL (0.000-0.034)
[2021-01-20 07:43] LABS: Hematocrit 22.9 % (37.0-47.0); Hemoglobin 7.3 g/dL (12.0-15.0); Mean Corpuscular HGB Conc 31.9 g/dl (32-36); Mean Corpuscular Hemoglobin 26.4 pg (26-34); Mean Corpuscular Volume 82.7 fl (80-100); Mean Platelet Volume 9.4 fl (7.4-10.4); Platelet Count Result 233 k/mm3 (150-375); Red Blood Count 2.77 M/mm3 (4.2-5.4); Red Cell Distribution Width 16.1 % (11.5-14.5)
--- NOTE | 2021-01-20 08:16 | PM.IMPN ---
Progress Note: A&P Assessment and Plan (1) Malignant hypertensive urgency: Code(s): I16.0 - Hypertensive urgency Status: Acute Assessment and Plan: Patient's blood pressures have been 200/100 since her admission. She does not check her blood pressure at home. She just got insurance and does not have a regular PCP to follow up with get. She has seen Dr. Fernandez nephrology but the last time was 6 months ago. Blood pressure this morning 197/101. Continue amlodipine 10 mg, p.r.n. hydralazine 10 mg for blood pressure greater than 180 systolic, or 100 diastolic Will talk to the material movers about further medication adjustments given her acute on chronic renal failure Continue monitoring. Make adjustments as needed. (2) Atypical chest pain: Code(s): R07.89 - Other chest pain Status: Acute Assessment and Plan: Patient's chest pain seems to be more respiratory in nature. Negative troponin x2 Chest x-ray shows-cardiomegaly, not officially read by the radiologist at this time Normal white blood cell count and differential, I do not believe she has pneumonia EKG shows normal sinus rhythm with rate 85 beats per minute, with possible anterior KS Telemetry shows normal sinus rhythm at 82 beats per minute, no acute arrhythmia on tele Her lungs are clear at this time I will give her a breathing treatment to help open her airways Echocardiogram ordered and pending Continue monitoring chest pain. (3) Acute renal failure: Code(s): N17.9 - Acute kidney failure, unspecified Status: Acute Assessment and Plan: Acute on chronic renal failure who presents with a creatinine of 14, BUN 96. Likely secondary to uncontrolled hypertension, diabetes Renal ultrasound ordered Nephrology consult and appreciate their input Continue monitoring. (4) Anemia in chronic kidney disease: Code(s): N18.9 - Chronic kidney disease, unspecified; D63.1 - Anemia in chronic kidney disease Status: Acute Assessment and Plan: Normocytic anemia. Likely secondary to acute on chronic kidney failure Will order further lab testing with iron panel, vitamin B12, folic acid Appreciate Nephrology's input Will continue to monitor H&H make sure does not drop below 7. (5) Gastroesophageal reflux: Code(s): K21.9 - Gastro-esophageal reflux disease without esophagitis Status: Acute Assessment and Plan: She has reported allergy to omeprazole. Will add famotidine and p.r.n. Tums (6) Diabetes: Code(s): E11.9 - Type 2 diabetes mellitus without complications Status: Chronic Assessment and Plan: Hemoglobin A1c 6.1%, well controlled but most likely due to acute on chronic renal failure. Will decrease her home insulin while she is hospitalized to prevent hypoglycemia, as pr 30 units b.i.d. with meals will be switched to 22 units and glargine 20 units will be switched to 14 units HS Accu-Cheks AC and HS. Hypoglycemic protocol in place. Make adjustments as needed. Sliding scale insulin (7) Peripheral neuropathy: Code(s): G62.9 - Polyneuropathy, unspecified Status: Chronic Assessment and Plan: Likely to be peripheral diabetic neuropathy Follow-up in outpatient setting (8) Arthritis: Code(s): M19.90 - Unspecified osteoarthritis, unspecified site Status: Chronic Assessment and Plan: Tylenol as needed Avoid NSAID Time Spent With Patient Time with patient: 25 - 35 minutes Subjective Date/time seen: 01/20/21 08:16 Interval history: Date of service 11
[2021-01-20] MEDS: INSULIN ASPART (*BKC) 100 UNITS/ML 30 UNITS SUB-Q (08:25)
[2021-01-20] MEDS: SODIUM POLYSTYRENE SULFONONATE 15 GM/60 ML BTL PO (08:25)
[2021-01-20] MEDS: amLODIPine BESYLATE 5 MG TABLET 10 MG PO (08:25)
[2021-01-20 08:27] LABS: Glucose Point of Care 173 mg/dl (65-105)
[2021-01-20 08:42] LABS: Iron 37 ug/dL (37-170)
[2021-01-20 08:52] LABS: Percent Iron Saturation 18 % (20-50); Transferrin 145 mg/dL (206-381)
--- NOTE | 2021-01-20 09:06 | PM.CNNEP ---
Assessment and Plan Assessment and plan (1) Chronic kidney disease, stage 5: Code(s): N18.5 - Chronic kidney disease, stage 5 Status: Acute Assessment and Plan: The patient has chronic kidney disease stage 5. This is likely due to diabetes and hypertension. Dr. Fernandez has evaluated this in the past. Unfortunately she has not been taking her medications and her renal function has deteriorated. At this point she does not have many symptoms of uremia however her GFR is only 3 so she needs to start dialysis. She wants to do peritoneal dialysis but I think will have to start with hemodialysis with a tunneled catheter and then switched to peritoneal dialysis when she is more stable. We discussed that she will have to have a dialysis catheter placed. And tomorrow we can do regular hemodialysis for short treatment in the gradually increase the treatments. When she is at home we can schedule her for peritoneal dialysis catheter. We discussed the risks benefits alternatives and process of hemodialysis and she agrees to proceed. (2) Anemia in chronic kidney disease: Code(s): N18.9 - Chronic kidney disease, unspecified; D63.1 - Anemia in chronic kidney disease Status: Acute Assessment and Plan: The patient's hemoglobin is only 7.3. We can check some iron levels and give her some EPO. (3) Chest pain: Qualifiers: Chest pain type: unspecified Qualified Code(s): R07.9 - Chest pain, unspecified Code(s): R07.9 - Chest pain, unspecified Status: Acute Assessment and Plan: The patient is having some chest pain. This will be evaluated by the hospitalist. I do not hear a rub. (4) HTN (hypertension): Qualifiers: Hypertension type: unspecified Qualified Code(s): I10 - Essential (primary) hypertension Code(s): I10 - Essential (primary) hypertension Status: Acute Assessment and Plan: Blood pressure is very high. She was put on amlodipine. I agree with starting hydralazine. We can give her p.r.n. clonidine as well. (5) Gastroesophageal reflux: Code(s): K21.9 - Gastro-esophageal reflux disease without esophagitis Status: Acute Assessment and Plan: She is on famotidine (6) Diabetes: Code(s): E11.9 - Type 2 diabetes mellitus without complications Status: Chronic Assessment and Plan: She is getting insulin sliding scale History of Present Illness Reason for Consult Consult date: 01/20/21 Chief Complaint Chief complaint: Renal Failure History of Present Illness Narrative: Amy mitchell is an unfortunate 40-year-old female who has multiple medical problems including diabetes, hypertension, chronic kidney disease, obesity, arthritis, diverticulosis, anemia, GERD, and peripheral neuropathy. The patient is been following in the clinic with Dr. Fernandez. She saw him in June. He sent her to kidney [facility] because dialysis was nearing. She has decided that after the kidney [facility] education session that she would do peritoneal dialysis. The patient says that a couple of days ago she started having chest discomfort. This was described as a feeling of something sitting on her chest. She felt like coughing would clear it but it does not work. This did not worsen when she lay down flat and it did not worsen when she takes a deep breath. It does not worsen with exertion. It is just there all the time. She has no shortness of breath. No sharp chest pain. No back pain. No pain radiating down to the arm or up into the jaw. She has no nausea. Her appetite is good. She says that she has not been taking her blood pressure medications because she lost insurance a while back and so stopped taking her medications. She does have a job and insurance now and she was working toward getting back on her medications but has not done that yet. I am not sure she is taking her diabetic medications at all. She was surprised to hear that
[2021-01-20] MEDS: FAMOTIDINE 20 MG TABLET PO ×2 (09:20→20:30)
[2021-01-20] MEDS: hydrALAZINE 10 MG TABLET PO ×4 (09:20→20:30)
[2021-01-20 09:51] LABS: Folic Acid 7.3 ng/mL (2.76->20)
[2021-01-20 10:51] LABS: Glucose Point of Care 40 mg/dl (65-105)
[2021-01-20] MEDS: DEXTROSE 50% 25 GM/50 ML SYRINGE IV PUSH ×2 (10:51→13:15)
[2021-01-20 11:03] LABS: Hepatitis B Surface Antigen Negative (Negative)
[2021-01-20 11:16] LABS: Glucose Point of Care 81 mg/dl (65-105)
[2021-01-20 11:20] LABS: Hepatitis B Surface Anti Res Negative; Hepatitis C Virus Antibody Negative (Negative)
[2021-01-20 11:56] LABS: Glucose Point of Care 77 mg/dl (65-105)
[2021-01-20] MEDS: DEXTROSE 10% 500 ML 10 ML IV CONT (12:30)
[2021-01-20] MEDS: EPOETIN ALFA-EPBX 10,000 UNITS/ML VIAL 10000 UNITS SUB-Q (12:35)
[2021-01-20] MEDS: FERROUS SULFATE 324 MG TABLET PO ×2 (12:38→17:06)
--- NOTE | 2021-01-20 13:10 | PCRCNOTE ---
Window of time for administration has passed. See next scheduled administration.
[2021-01-20 13:15] LABS: Glucose Point of Care 37 mg/dl (65-105)
[2021-01-20 13:39] LABS: Glucose Point of Care 99 mg/dl (65-105)
[2021-01-20] MEDS: IPRATROPIUM BR 0.02% INH SOLN 0.5 MG/2.5 ML VIAL INHALATION ×2 (14:03→20:11)
[2021-01-20] MEDS: ALBUTEROL SULFATE NEB 2.5 MG/0.5 ML INH INHALATION ×2 (14:03→20:12)
[2021-01-20 14:06] LABS: Glucose Point of Care 90 mg/dl (65-105)
[2021-01-20 15:10] LABS: Glucose Point of Care 97 mg/dl (65-105)
[2021-01-20 16:08] LABS: Glucose Point of Care 83 mg/dl (65-105)
[2021-01-20 17:06] LABS: Glucose Point of Care 88 mg/dl (65-105)
[2021-01-20] MEDS: ACETAMINOPHEN 325 MG TABLET 650 MG PO (18:02)
[2021-01-20 18:18] LABS: Glucose Point of Care 101 mg/dl (65-105)
[2021-01-20 19:12] LABS: Glucose Point of Care 113 mg/dl (65-105)
--- NOTE | 2021-01-20 20:01 | PC.NURSE ---
Spoke with Sera RAPHAEL regarding blood sugar checks. May go to [facility] blood sugar checks.
[2021-01-20 21:36] LABS: Glucose Point of Care 128 mg/dl (65-105)
[2021-01-20 23:22] LABS: Glucose Point of Care 123 mg/dl (65-105)
[2021-01-21] VITALS (31 sets, daily range): BP systolic 130–188; BP diastolic 73–100; PULSE 86–108; RESP 13–24; TEMP 36–37.3; O2SAT 97–100
--- NOTE | 2021-01-21 | ECHO_ITS ---
Patient Info Name: Bakari Smith Age: 40 years : 1980 Gender: Female Ht: 63 in Wt: 235 lbs BSA: 2.23 m2 HR: 100 bpm BP: 180 / 87 mmHg Heart Rhythm: Sinus Rhythm Technical Quality: Good Exam Date: 01/21/2021 10:27 AM Exam Location: [facility] Pulmonary Patient Status: Inpatient Admit Date: 01/20/2021 Staff Ordering Physician: Carlos Rodriguez MD Parliamentary Counsel: ALTA Attending Provider: Caitlin Sullivan PA-C Referring Physician: Michael FIGUEROA; Exam Type: CA echo doppler color flow Study Info Indications I10 - Essential (primary) hypertension R07.9 - Chest pain, unspecified Complete two-dimensional, color flow and Doppler transthoracic echocardiogram is performed. Summary 1. Complete two-dimensional, color flow and Doppler transthoracic echocardiogram is performed. 2. There is trace mitral valve regurgitation. 3. Otherwise unremarkable echocardiogram. Left Ventricle Left ventricular chamber dimension is normal. Left ventricular systolic function is normal, estimated at 60-65%. The left ventricular diastolic function is normal. Right Ventricle Right ventricular chamber dimension is normal. Left Atria Left atrial chamber dimension is normal. Right Atria Right atrial chamber dimension is normal. Aortic Valve The aortic valve is normal. Pulmonic Valve The pulmonic valve is not well visualized. Mitral Valve The mitral valve has normal leaflets. There is trace mitral valve regurgitation. Tricuspid Valve The tricuspid valve leaflets are normal. Pericardium/Pleural The pericardium appears normal. Aorta The aortic root size at the sinus of Valsalva is normal. Left Ventricular Outflow Tract Name Value Normal LVOT 2D LVOT Diameter 1.7 cm LVOT Doppler LVOT Peak Gradient 5 mmHg LVOT Mean Gradient 3 mmHg LVOT VTI 24 cm LVOT VTI/AV VTI Ratio 0.7 LVOT Stroke Volume 54 ml LVOT CO 5.4 l/min LVOT CI 2.4 l/min/m2 Pulmonic Valve Name Value Normal PV Doppler PV Peak Gradient 6 mmHg Mitral Valve Name Value Normal MV Doppler MV Decel [place] 920 cm/s2 MV PHT 31 ms MV Area (PHT) 7.0 cm2 4.0-5.0 MV Diastolic Function MV E Peak Velocity 99 cm/s M
[2021-01-21] MEDS: IPRATROPIUM BR 0.02% INH SOLN 0.5 MG/2.5 ML VIAL INHALATION ×2 (02:45→08:38)
[2021-01-21] MEDS: ALBUTEROL SULFATE NEB 2.5 MG/0.5 ML INH INHALATION ×2 (02:45→08:38)
[2021-01-21 03:34] LABS: Glucose Point of Care 132 mg/dl (65-105)
[2021-01-21 05:07] LABS: Hematocrit 23.3 % (37.0-47.0); Hemoglobin 7.4 g/dL (12.0-15.0); Mean Corpuscular HGB Conc 31.8 g/dl (32-36); Mean Corpuscular Hemoglobin 26.2 pg (26-34); Mean Corpuscular Volume 82.6 fl (80-100); Mean Platelet Volume 9.4 fl (7.4-10.4); Platelet Count Result 238 k/mm3 (150-375); Red Blood Count 2.82 M/mm3 (4.2-5.4); White Blood Count 9.2 K/mm3 (4.5-10.0)
[2021-01-21 05:28] LABS: Albumin Level 3.2 g/dL (3.5-5.1); Anion Gap 13 mmol/L (8-16); Blood Urea Nitrogen 99 mg/dL (7-17); Calcium 5.7 mg/dL (8.4-10.2); Carbon Dioxide 17 mmol/L (22-30); Chloride 106 mmol/L (98-107); Estimated CRCL calculation 6 ml/min; Estimated Glomerular Filt Rate 3; Glucose 131 mg/dL (65-110); Phosphorus 9.1 mg/dL (2.5-4.5); Potassium 4.6 mmol/L (3.4-5.0); Sodium 136 mmol/L (137-145)
--- NOTE | 2021-01-21 06:41 | PM.IMPN ---
Progress Note: A&P Assessment and Plan (1) Hypoglycemia: Code(s): E16.2 - Hypoglycemia, unspecified Status: Acute Assessment and Plan: 01/20/21: I was reviewing the patient's labs and noticed that her glucose went from 248 to 81. I could not find how much insulin she had received so I called the nurse who told me she received NovoLog 30 units which was what she takes at home and that she was hypoglycemic at 40 earlier this morning at 10:50 and she received the hypoglycemic protocol but did not call to inform me of this. I called the patient and asked her when the last time she took her insulin was, she tells me she has not taken her insulin ?in a long time?. Review of medical record shows she had insulin prescribed February 2020 but was never refilled. Her hemoglobin A1c is 6.1% which is well controlled. Due to the patient's acute renal failure this will most likely hold on to the NovoLog insulin longer than expected. I talked to Dr. Stacy and the pharmacist about starting a dextrose drip to prevent further hypoglycemia. We placed her on IV Dextrose 10% at rate 50 cc/hr and this was able to be discontinued at 2153 after the patients glucoses became more stable in the 100's x4. We will continue checking glucose ACHS, hypoglycemic protocol and SSI as needed. (2) Malignant hypertensive urgency: Code(s): I16.0 - Hypertensive urgency Status: Acute Assessment and Plan: Patient's blood pressures have been 200/100 since her admission. She does not check her blood pressure at home. She just got insurance and does not have a regular PCP to follow up with get. She has seen Dr. Fernandez nephrology but the last time was 6 months ago. Blood pressure this morning 180/87 prior to any medications being given. Continue amlodipine 10 mg, PO hydralazine 10 mg QID, and Clonidine 0.1 mg for blood pressure greater than 180 systolic per nephrology Continue monitoring. Make adjustments as needed. (3) Atypical chest pain: Code(s): R07.89 - Other chest pain Status: Acute Assessment and Plan: Patient's chest pain seems to be more respiratory in nature. Negative troponin x2 Chest x-ray shows No acute cardiopulmonary abnormality. Normal white blood cell count and differential, I do not believe she has pneumonia EKG shows normal sinus rhythm with rate 85 beats per minute, with possible anterior LA Telemetry shows normal sinus rhythm at 103 beats per minute, no acute arrhythmia on tele Her lungs are clear at this time I will give her a breathing treatment to help open her airways Echocardiogram ordered and pending Continue monitoring chest pain. (4) Acute renal failure: Code(s): N17.9 - Acute kidney failure, unspecified Status: Acute Assessment and Plan: Acute on chronic renal failure who presents with a creatinine of 14, BUN 96. Likely secondary to uncontrolled hypertension, diabetes Renal ultrasound showed Right renal cyst measuring 1.6 cm. Otherwise, unremarkable renal ultrasound. Nephrology consulted and will consult General Surgery for Temporary Dialysis catheter to be placed to start Hemodialysis Continue monitoring. (5) Anemia in chronic kidney disease: Code(s): N18.9 - Chronic kidney disease, unspecified; D63.1 - Anemia in chronic kidney disease Status: Acute Assessment and Plan: Normocytic anemia. Likely secondary to acute on chronic kidney failure H&H Stable at this time 7.4/23.3%. Iron panel showed slight iron deficiency. Vitamin B12, folic acid, TSH are normal Nephrology is going to start Epogen injections Will continue to monitor H&H make sure does not drop below 7. (6) Gastroesophageal reflux: Co
[2021-01-21 09:04] LABS: Glucose Point of Care 116 mg/dl (65-105)
[2021-01-21] MEDS: FERROUS SULFATE 324 MG TABLET PO ×2 (09:33→19:50)
[2021-01-21] MEDS: hydrALAZINE 10 MG TABLET PO (09:33)
[2021-01-21] MEDS: FAMOTIDINE 20 MG TABLET PO ×2 (09:33→19:50)
[2021-01-21] MEDS: amLODIPine BESYLATE 5 MG TABLET 10 MG PO (09:33)
--- NOTE | 2021-01-21 10:41 | PM.PNNEP ---
Progress Note: A&P Assessment and Plan (1) Chronic kidney disease, stage 5: Code(s): N18.5 - Chronic kidney disease, stage 5 Status: Acute Assessment and Plan: The patient has chronic kidney disease stage 5. This is likely due to diabetes and hypertension. She is going to get a catheter today and start dialysis later today. Will start low-dose with only about 2 hours at 1st. Then will increase gradually to a 4hour treatment. This is end-stage renal disease. (2) Anemia in chronic kidney disease: Code(s): N18.9 - Chronic kidney disease, unspecified; D63.1 - Anemia in chronic kidney disease Status: Acute Assessment and Plan: The patient's hemoglobin is only 7.3. We can check some iron levels and give her some EPO. (3) Chest pain: Qualifiers: Chest pain type: unspecified Qualified Code(s): R07.9 - Chest pain, unspecified Code(s): R07.9 - Chest pain, unspecified Status: Acute Assessment and Plan: The patient is having some chest pain. This will be evaluated by the hospitalist. I do not hear a rub. (4) HTN (hypertension): Qualifiers: Hypertension type: unspecified Qualified Code(s): I10 - Essential (primary) hypertension Code(s): I10 - Essential (primary) hypertension Status: Acute Assessment and Plan: Blood pressure is very high. She is on amlodipine and hydralazine. She is also on p.r.n. clonidine. Will increase the hydralazine. Start an Ayush inhibitor once she is on dialysis. (5) Gastroesophageal reflux: Code(s): K21.9 - Gastro-esophageal reflux disease without esophagitis Status: Acute Assessment and Plan: She is on famotidine (6) Diabetes: Code(s): E11.9 - Type 2 diabetes mellitus without complications Status: Chronic Assessment and Plan: She is getting insulin sliding scale Subjective Date/time seen: 01/21/21 10:41 Interval history: patient is alert. She is feeling okay. She slept well. She had questions about her kidneys. Why she is still making urine. We discussed that her GFR is only 3 and that is the main indication for starting her on dialysis. It is likely that her urine output will drop off once she starts dialysis. Review of Systems Cardiovascular: Cardiovascular: Reports no additional cardiovascular complaints Respiratory: Respiratory: Reports no additional respiratory complaints Gastrointestinal: Gastrointestinal: Reports no additional gastrointestinal complaints Genitourinary: Genitourinary: Reports no additional female genitourinary complaints Exam Narrative: WDWN in NAD skin no rash head ncat lungs clear cor reg no rub abd BS+ nontender and soft ext no edema. Objective Data Vital Signs Vital Signs: Vital Signs - 24 hr 01/20/21 12:00 01/20/21 14:00 01/20/21 14:04 Temperature 36.5 C Pulse Rate 107 H 94 89 Respiratory Rate 16 18 Blood Pressure 170/79 H Pulse Oximetry 99 01/20/21 14:05 01/20/21 14:20 01/20/21 16:00 Temperature 36.7 C Pulse Rate 85 98 Respiratory Rate 18 16 Blood Pressure 175/85 H Pulse Oximetry 96 99 01/20/21 18:00 01/20/21 20:00 01/20/21 20:12 Temperature 36.8 C Pulse Rate 97 105 H 99 Respiratory Rate 20 18 Blood Pressure 180/96 H Pulse Oximetry 100 01/20/21 20:14 01/20/21 20:20 01/20/21 22:00 Temperature Pulse Rate 95 99 Respiratory Rate 18 Blood Pressure Pulse Oximetry 96 01/20/21 23:35 01/21/21 00:00 01/21/21 02:00 Temperature 36.8 C Pulse Rate 100 95 92 Respiratory Rate 20 Blood Pressure 177/90 H Pulse Oximetry 95 01/21/21 02:45 01/21/21 02:53 01/21/21 03:13 Temperature Pulse Rate 86 92 96 Respiratory Rate 18 18 Blood Pressure Pulse Oximetry 01/21/21 03:39 01/21/21 04:00 01/21/21 06:00 Temperature 36.6 C Pulse Rate 95 91 96 Respiratory Rate 22 H Blood Pressure 180/8
--- NOTE | 2021-01-21 10:49 | PM.CNGS ---
Assessment and Plan Assessment and plan (1) Renal failure: Qualifiers: Chronic kidney disease stage: unspecified stage Renal failure chronicity: chronic Qualified Code(s): N18.9 - Chronic kidney disease, unspecified Code(s): N19 - Unspecified kidney failure Status: Acute Assessment and Plan: Will set up for urgent placement tunneled hemodialysis catheter in the operating room today, plan for emergent dialysis after placement (2) Diabetes: Code(s): E11.9 - Type 2 diabetes mellitus without complications Status: Chronic Assessment and Plan: management per primary care team (3) HTN (hypertension): Qualifiers: Hypertension type: unspecified Qualified Code(s): I10 - Essential (primary) hypertension Code(s): I10 - Essential (primary) hypertension Status: Acute Assessment and Plan: management per primary care team (4) Morbid obesity: Code(s): E66.01 - Morbid (severe) obesity due to excess calories Status: Acute Assessment and Plan: lifestyle and dietary modifications, increase surgical and anesthetic risk History of Present Illness Consult details Consult date: 01/21/21 Reason for consult: other Requesting physician: Umang Stacy MD Narrative: The patient is a 40-year-old female with multiple medical issues presenting with end-stage renal disease. The patient presents with acute on chronic renal failure and at this point requires emergent hemodialysis. The patient denies any previous central venous catheterization. Review of Systems Constitutional: Constitutional: Reports anorexia, Reports body ache(s), Denies chills, Reports fatigue, Denies fever(s), Reports lethargy, Reports malaise, Reports weakness, Reports weight gain and Denies weight loss Eyes: Eyes: Reports no additional eye complaints ENT: Reports system reviewed and no additional complaints, except as documented Cardiovascular: Cardiovascular: Reports no additional cardiovascular complaints Respiratory: Respiratory: Reports dyspnea on exertion Gastrointestinal: Gastrointestinal: Reports no additional gastrointestinal complaints Genitourinary: Genitourinary: Reports no additional female genitourinary complaints Musculoskeletal: Musculoskeletal: Reports no additional musculoskeletal complaints Integumentary/Breasts: Skin/Breast: Reports system reviewed and no additional complaints, except as docu Neurologic: Reports system reviewed and no additional complaints, except as documented Psychiatric: Psychiatric: Reports no additional psychiatric complaints Endocrine: Endocrine: Reports no additional endocrine complaints Hematologic/Lymphatic: Hematologic/Lymphatic: Reports no additional hematologic/lymphatic complaints Allergic/Immunologic: Allergic/Immunologic: Reports no additional allergic/immunologic complaints PMFSH Past Medical History Medical History Arthritis Right wrist left knee Chronic kidney disease, stage 5 CKD (chronic kidney disease) stage 4, GFR 15-29 ml/min Diabetes Type 2 insulin-dependent Diverticulitis Erythropoietin deficiency anemia Gastroesophageal reflux Hypertension Irritable bowel syndrome Peripheral neuropathy Pneumonia Pyuria Surgical History Surgical History Delivery by section X3 History of salpingo-oophorectomy History of tubal ligation Hx of appendectomy Hx of cholecystectomy Family History Family History Mother Diabetes mellitus Breast cancer Sibling History of blood clots Father Hypertension Prostate carcinoma Social History Social History Social History: 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 She is a lifelong nonsmoker. She use marijuana in her teenage y
--- NOTE | 2021-01-21 10:55 | WPDHPUPDATE1 ---
History and Physical Update Update Date/Time: 01/21/21 10:55 History and Physical has been reviewed, including an updated exam of the patient. There are NO changes in the patient's condition. Risks, benefits, and alternatives have been discussed and questions answered. Patient agrees to proceed with procedure.
[2021-01-21 13:16] LABS: Glucose Point of Care 132 mg/dl (65-105)
--- NOTE | 2021-01-21 13:17 | WPDANESEPPF ---
Anes - Initial Pre Proc Eval Procedure: Operation Date: 01/21/21 15:30 Proposed Procedures p Insertion Dialysis Catheter - Janel Nelson MD Date/Time: 01/21/21 13:17 Surgeon: Caitlin Sullivan PA-C Pre Op Diagnosis: Renal Failure Patient Data Age: 40 Gender: F Height: 1.6 m Weight: 112.3 kg Last Vital Signs Temp 36.7 C 01/21/21 08:00 Pulse 95 01/21/21 08:46 Resp 18 01/21/21 08:46 BP 178/87 H 01/21/21 08:00 Pulse Ox 98 01/21/21 08:42 Allergies Allergy/AdvReac Type Severity Reaction Status Date / Time metronidazole Allergy Intermediate Rash Verified 01/19/21 21:13 omeprazole Allergy Intermediate Rash Verified 01/19/21 21:13 Home Medications Medication Instructions Recorded Confirmed Type amlodipine 10 mg PO DAILY 30 Days #30 tablet 05/21/19 01/20/21 Rx lancets [OneTouch Delica Plus #1 pkg 03/02/20 01/20/21 Rx Lancet] pen needle, diabetic [BD #1 pkg 03/02/20 01/20/21 Rx Ultra-Fine Alyson Pen Needle] bisacodyl 5 mg PO ONCE PRN 01/20/21 01/20/21 History insulin glargine [Lantus Solostar 20 unit SUBCUT HS 01/20/21 01/20/21 History U-100 Insulin] insulin lispro 30 unit SUBCUT BID 01/20/21 01/20/21 History Laboratory Tests 01/20/21 01/20/21 01/20/21 13:36 14:04 15:06 WBC RBC Hgb Hct MCV MCH MCHC RDW Plt Count MPV Sodium Potassium Chloride Carbon Dioxide Anion Gap BUN Creatinine Estim Creat Clear Calc Estimated GFR Glucose POC Capillary Glucose 99 mg/dl mg/dl 90 mg/dl mg/dl 97 mg/dl mg/dl (65-105) (65-105) (65-105) Calcium Phosphorus Albumin 01/20/21 01/20/21 01/20/21 16:05 16:57 18:00 WBC RBC Hgb Hct MCV MCH MCHC RDW Plt Count MPV Sodium Potassium Chloride Carbon Dioxide Anion Gap BUN Creatinine Estim Creat Clear Calc Estimated GFR Glucose POC Capillary Glucose 83 mg/dl mg/dl 88 mg/dl mg/dl 101 mg/dl mg/dl (65-105) (65-105) (65-105) Calcium Phosphorus Albumin 01/20/21 01/20/21 01/20/21 19:09 19:46 23:06 WBC RBC Hgb Hct MCV MCH MCHC RDW Plt Count MPV Sodium Potassium Chloride Carbon Dioxide Anion Gap BUN Creatinine Estim Creat Clear Calc Estimated GFR Glucose POC Capillary Glucose 113 mg/dl H mg/dl 128 mg/dl H mg/dl 123 mg/dl H mg/dl (65-105) (65-105) (65-105) Calcium Phosphorus Albumin 01/21/21 01/21/21 01/21/21 02:48 04:23 04:23 WBC 9.2 K/mm3 K/mm3 (4.5-10.0) RBC 2.82 M/mm3 L M/mm3 (4.2-5.4) Hgb 7.4 g/dL L g/dL (12.0-15.0) Hct 23.3 % L % (37.0-47.0) MCV 82.6 fl fl (80-100) MCH 26.2 pg pg (26-34) MCHC 31.8 g/dl L g/dl (32-36) RDW 16.0 % H % (11.5-14.5) Plt Count 238 k/mm3 k/mm3 (150-375) MPV 9.4 fl fl (7.4-10.4) Sodium 136 mmol/L L mmol/L (137-145) Potassium 4.6 mmol/L mmol/L (3.4-5.0) Chloride 106 mmol/L mmol/L (98-107) Carbon Dioxide 17 mmol/L L mmol/L (22-30) Anion Gap 13 mmol/L mmol/L (8-16) BUN 99 mg/dL H mg/dL (7-17) Creatinine 13.70 mg/dL H mg/dL (0.7-1.0) Estim C
[2021-01-21] MEDS: SODIUM CHLORIDE 0.9% IV 500 ML 30 ML IV CONT (14:07)
--- NOTE | 2021-01-21 14:11 | SUR.PREOP ---
PT STATES STOMACH HURTS FROM NOT EATING SINCE YESTERDAY DR NI NOTIFIED.
--- NOTE | 2021-01-21 14:20 | SUR.PREOP ---
1410; PT NAUSEATED AND HAVING DRY HEAVES. ENCOURAGED SLOW DEEP BREATHS 1420; DR IQBAL GAVE A VERBAL ORDER FOR ANCEF 2GM IVPB MOLD CLOSER TO OR
[2021-01-21] MEDS: ceFAZolin 2 GM/D5W 50 ML 2 GM/50 ML BAG IVPB (14:59)
--- NOTE | 2021-01-21 15:07 | SUR.PREOP ---
1415; pt given a peppermint lifesaver. Breann ADVISOR TO [employer] IN COMBAT notified. 1430; pt states relief of nausea
[2021-01-21] MEDS: LIDO 1%/EPINEPHRINE 1:100,000 50 ML VIAL 20 ML INFILTRATE (15:09)
[2021-01-21] MEDS: HEPARIN SODIUM 5,000 UNITS/ML VIAL 5000 UNITS IRRIGATION (15:11)
[2021-01-21] MEDS: HEPARIN SODIUM, PORCINE 10,000 UNITS/10 ML VIAL 5000 UNITS IV PUSH (15:12)
--- NOTE | 2021-01-21 16:08 | W.PM.PROC2 ---
Procedure Note - Detailed Date of Procedure 01/21/21 Pre-op Diagnosis Renal Failure Post-op Diagnosis same Procedure Performed placement of 28 cm tunneled hemodialysis catheter in right internal jugular vein under both ultrasound and fluroscopic guidance Surgeon Janel Nelson MD Anesthesia general and local Indications 40-year-old female with acute on chronic renal failure necessitating emergent dialysis Findings 1st stick RIJ under U/S Description of Procedure Patient was taken to the operating room and placed in the supine position. After adequate induction of MAC anesthesia, the patient was prepped and draped in normal sterile fashion. A time-out was then done to verify the patient's identity as well as the procedure being performed. I began by using the SonoSite and locating the right internal jugular vein. Once this was done, I localized the overlying skin. I then made a small incision in the skin. I then gained access into the right internal jugular vein with an 18 gauge needle. At this point, I threaded the guidewire into the right internal jugular vein. Placement of the guidewire was confirmed by both ultrasound and fluoroscopic guidance. I then went ahead and measured the 28 cm tunneled dialysis catheter to our stick site in the right neck. I then localized the tract going from the right chest to the right neck. I then made a small incision in the right chest and tunneled the catheter to the right neck. This was very difficult given the patient's body habitus and I did have to make a counter incision to facilitate tunneling to the right neck. I then serially dilated the right internal jugular vein under fluoroscopic guidance. Once adequately dilated, I placed the dilating sheath over the guidewire into the right internal jugular vein under fluoroscopic visualization. Again this was very difficult and we actually had to open another kit due to malfunction of the 1st dilating sheath. Once this was noted to be in good position, I removed both the guidewire and dilator, now just leaving the sheath in the vein. I then went ahead and fed the previously tunneled catheter into the sheath. Once the catheter was fed and positioned correctly, I went ahead and peeled the sheath away. Final fluoroscopic view showed the catheter in good position from its insertion point in the right chest to its termination in the right atrial caval junction. It was noted there was no kinking of the catheter. I was able to easily draw and flush from both ports of the catheter. I placed 2.2 and 2.3 cc of final heparin flush into each port as marked. The catheter was then sutured into place and the incision in the neck was closed with 4 O Monocryl subcuticular suture. The patient tolerated the procedure well and will be transferred to the ICU in critical condition. Sterile dressing was placed on the catheter. Portable chest x-ray will be done in the ICU. Implants 28 cm tunneled hemodialysis catheter Estimated Blood Loss 50 Drains No Packing No Pathology none sent Complications No immediate complications Condition stable Disposition PACU
[2021-01-21] MEDS: fentaNYL CITRATE INJ (*CRX) 100 MCG/2 ML VIAL 25 MCG IV PUSH ×4 (16:14→16:40)
[2021-01-21 16:40] LABS: Glucose Point of Care 158 mg/dl (65-105)
--- NOTE | 2021-01-21 18:17 | PC.NURSE ---
Patient off floor in surgery since 13:30 for tunnel cathter.
[2021-01-21] MEDS: hydrALAZINE HCL 25 MG TABLET PO (19:49)
[2021-01-21] MEDS: ACETAMINOPHEN 325 MG TABLET 650 MG PO (19:49)
[2021-01-21 19:51] LABS: Glucose Point of Care 135 mg/dl (65-105)
[2021-01-21] MEDS: HYDROmorphone HCL INJ (*CRX) 1 MG/ML SYR IV PUSH (21:02)
[2021-01-22] VITALS (19 sets, daily range): BP systolic 124–177; BP diastolic 66–94; PULSE 80–97; RESP 12–20; TEMP 36.3–37.3; O2SAT 98–100
[2021-01-22] MEDS: diphenhydrAMINE HCl INJ 50 MG/ML VIAL 25 MG IV PUSH (00:09)
[2021-01-22] MEDS: ONDANSETRON INJ 4 MG/2 ML VIAL IV PUSH (02:15)
[2021-01-22] MEDS: HYDROmorphone HCL INJ (*CRX) 1 MG/ML SYR IV PUSH (04:25)
[2021-01-22 04:52] LABS: Hematocrit 22.5 % (37.0-47.0); Hemoglobin 7.1 g/dL (12.0-15.0); Mean Corpuscular HGB Conc 31.6 g/dl (32-36); Mean Corpuscular Hemoglobin 25.7 pg (26-34); Mean Corpuscular Volume 81.5 fl (80-100); Mean Platelet Volume 9.5 fl (7.4-10.4); Platelet Count Result 230 k/mm3 (150-375); Red Blood Count 2.76 M/mm3 (4.2-5.4); Red Cell Distribution Width 16.1 % (11.5-14.5)
[2021-01-22 05:08] LABS: Albumin Level 3.5 g/dL (3.5-5.1); Anion Gap 10 mmol/L (8-16); Blood Urea Nitrogen 74 mg/dL (7-17); Calcium 6.2 mg/dL (8.4-10.2); Carbon Dioxide 20 mmol/L (22-30); Chloride 105 mmol/L (98-107); Estimated CRCL calculation 7 ml/min; Estimated Glomerular Filt Rate 4; Glucose 163 mg/dL (65-110); Phosphorus 7.4 mg/dL (2.5-4.5); Potassium 5.7 mmol/L (3.4-5.0); Sodium 135 mmol/L (137-145)
--- NOTE | 2021-01-22 07:23 | PM.PNNEP ---
Progress Note: A&P Assessment and Plan (1) Chronic kidney disease, stage 5: Code(s): N18.5 - Chronic kidney disease, stage 5 Status: Acute Assessment and Plan: The patient has end-stage renal disease. This is likely due to diabetes and hypertension. She started dialysis yesterday. Case management is working with patient. It would make most sense for her to go to [place] because she is going to switch to peritoneal dialysis soon and that is where they do that. Will do another dialysis today. (2) Anemia in chronic kidney disease: Code(s): N18.9 - Chronic kidney disease, unspecified; D63.1 - Anemia in chronic kidney disease Status: Acute Assessment and Plan: The patient's hemoglobin is only 7.3. Will give iron. (3) Chest pain: Qualifiers: Chest pain type: unspecified Qualified Code(s): R07.9 - Chest pain, unspecified Code(s): R07.9 - Chest pain, unspecified Status: Acute Assessment and Plan: The patient is having some chest pain. This will be evaluated by the hospitalist. I do not hear a rub. (4) HTN (hypertension): Qualifiers: Hypertension type: unspecified Qualified Code(s): I10 - Essential (primary) hypertension Code(s): I10 - Essential (primary) hypertension Status: Acute Assessment and Plan: Blood pressure is slowly better. She is on amlodipine and hydralazine. She is also on p.r.n. clonidine. Will start lisinopril. Will also take fluid off with the treatment today. (5) Gastroesophageal reflux: Code(s): K21.9 - Gastro-esophageal reflux disease without esophagitis Status: Acute Assessment and Plan: She is on famotidine (6) Diabetes: Code(s): E11.9 - Type 2 diabetes mellitus without complications Status: Chronic Assessment and Plan: She is getting insulin sliding scale Subjective Date/time seen: 01/22/21 07:23 Interval history: patient is alert. She is feeling okay. She had dialysis yesterday. It went pretty well. Her dialysis catheter tunnel is head filter press tender. She also had some soreness in her throat post intubation. She slept well. Exam Narrative: WDWN in NAD skin no rash head ncat lungs clear cor reg no rub abd BS+ nontender and soft ext trace edema. Objective Data Vital Signs Vital Signs: Vital Signs - 24 hr 01/21/21 08:00 01/21/21 08:38 01/21/21 08:42 Temperature 36.7 C Pulse Rate 95 91 Respiratory Rate 18 18 Blood Pressure 178/87 H Pulse Oximetry 100 98 01/21/21 08:46 01/21/21 10:00 01/21/21 12:00 Temperature 36.3 C L Pulse Rate 95 98 99 Respiratory Rate 18 16 Blood Pressure 152/95 H Pulse Oximetry 100 01/21/21 13:54 01/21/21 14:00 01/21/21 16:05 Temperature 36.4 C L 36.4 C Pulse Rate 96 108 H 105 H Respiratory Rate 18 19 Blood Pressure 154/73 H 130/75 Pulse Oximetry 100 97 01/21/21 16:20 01/21/21 16:35 01/21/21 17:00 Temperature 36.6 C Pulse Rate 95 93 90 Respiratory Rate 13 14 18 Blood Pressure 159/84 H 154/87 H 158/88 H Pulse Oximetry 100 97 01/21/21 17:10 01/21/21 17:15 01/21/21 17:30 Temperature Pulse Rate 90 91 88 Respiratory Rate Blood Pressure 168/94 H 165/92 H 163/89 H Pulse Oximetry 01/21/21 17:45 01/21/21 18:00 01/21/21 18:15 Temperature Pulse Rate 90 90 90 Respiratory Rate Blood Pressure 159/88 H 168/89 H 167/99 H Pulse Oximetry 01/21/21 18:30 01/21/21 18:45 01/21/21 18:55 Temperature 36.6 C Pulse Rate 92 93 94 Respiratory Rate 22 H Blood Pressure 175/97 H 188/96 H 182/100 H Pulse Oximetry 01/21/21 20:00 01/21/21 23:44 01/22/21 00:00 Temperature 37.3 C 36.6 C Pulse Rate 95 90 81 Respiratory Rate 20 20 Blood Pressure 186/79 H 154/80 H Pulse Oximetry 100 100 01/22/21 02:00 01/22/21 03:21 01/22/21 04:00 Temperature 36.3 C L Pulse Rate 86 85 90 Respiratory Rate 20 Blood Pressure 170/94 H
[2021-01-22] MEDS: FAMOTIDINE 20 MG TABLET PO ×2 (08:32→20:16)
[2021-01-22] MEDS: hydrALAZINE HCL 25 MG TABLET PO ×4 (08:32→20:16)
[2021-01-22] MEDS: amLODIPine BESYLATE 5 MG TABLET 10 MG PO (08:32)
[2021-01-22] MEDS: diphenhydrAMINE HCl CAP 25 MG CAPSULE 50 MG PO (08:40)
[2021-01-22 08:51] LABS: Glucose Point of Care 136 mg/dl (65-105)
--- NOTE | 2021-01-22 09:31 | WPDANESPN ---
Anes - Prog Note Post-Op Date/Time: 01/22/21 09:31 Cardiovascular status: normal Respiratory status: normal Airway patency: baseline Mental status: baseline Post-Op hydration status: normal Vital Signs: Last Vital Signs Temp 37.1 C 01/22/21 08:00 Pulse 80 01/22/21 08:00 Resp 14 01/22/21 08:00 BP 177/80 H 01/22/21 08:00 Pulse Ox 100 01/22/21 08:00 Pain Score (VAS): 0 I/O: Intake & Output 01/21/21 01/22/21 01/22/21 23:59 07:59 15:59 Output Total 475 Balance -475 Laboratory Tests 01/22/21 04:25 01/22/21 04:25 01/21/21 01/21/21 01/21/21 12:14 16:38 19:49 WBC RBC Hgb Hct MCV MCH MCHC RDW Plt Count MPV Sodium Potassium Chloride Carbon Dioxide Anion Gap BUN Creatinine Estim Creat Clear Calc Estimated GFR Glucose POC Capillary Glucose 132 H 158 H 135 H Calcium Phosphorus Albumin 01/22/21 01/22/21 01/22/21 04:25 04:25 07:59 WBC 9.0 RBC 2.76 L Hgb 7.1 L Hct 22.5 L MCV 81.5 MCH 25.7 L MCHC 31.6 L RDW 16.1 H Plt Count 230 MPV 9.5 Sodium 135 L Potassium 5.7 H Chloride 105 Carbon Dioxide 20 L Anion Gap 10 BUN 74 H D Creatinine 11.50 H Estim Creat Clear Calc 7 Estimated GFR 4 L Glucose 163 H POC Capillary Glucose 136 H Calcium 6.2 L Phosphorus 7.4 H Albumin 3.5 Post-procedural complaints: none Patient Feedback: Patient satisfied with anesthetic care.
[2021-01-22] MEDS: IRON SUCROSE COMPLEX 200 MG in SODIUM CHLORIDE 0.9% IV 50 ML 120 MG IVPB (11:42)
[2021-01-22] MEDS: INSULIN ASPART (*BKC) 100 UNITS/ML SUB-Q (12:31)
[2021-01-22] MEDS: ACETAMINOPHEN 325 MG TABLET 650 MG PO (12:34)
--- NOTE | 2021-01-22 13:30 | PC.NURSE ---
Pt to dialysis via bed
[2021-01-22 14:02] LABS: Glucose Point of Care 187 mg/dl (65-105)
--- NOTE | 2021-01-22 14:10 | ECG_ITS ---
Measurements Intervals [place] Rate: 97 P: 53 ME: 138 QRS: 7 QRSD: 76 T: 154 QT: 365 QTc: 466 Interpretive Statements SINUS RHYTHM LOW QRS VOLTAGE IN PRECORDIAL LEADS BORDERLINE R WAVE PROGRESSION, ANTERIOR LEADS BORDERLINE T WAVE ABNORMALITY- INF/LAT LEADS BORDERLINE ECG Electronically Signed On 01-22-2021 17:53:57 SOFTWARE [employer]OL[employer] ENGINEER by Tomasz Scott D.O.
--- NOTE | 2021-01-22 14:21 | PC.NURSE ---
Rapid Response called on patient d/t c/o chest tightness as dialysis treatment started. Dialysis treatment stopped when this occurred. Dr. Stacy notified and order for dialysis cancelled for today. See rapid response documentation for further information. Pt returned to room via bed, still complaints of chest tightness.
[2021-01-22 14:24] LABS: Glucose Point of Care 209 mg/dl (65-105)
[2021-01-22 14:31] LABS: Hematocrit 24.5 % (37.0-47.0); Hemoglobin 7.6 g/dL (12.0-15.0); Mean Corpuscular Hemoglobin 25.9 pg (26-34); Mean Corpuscular Volume 83.6 fl (80-100); Mean Platelet Volume 9.3 fl (7.4-10.4); Platelet Count Result 246 k/mm3 (150-375); Red Blood Count 2.93 M/mm3 (4.2-5.4); Red Cell Distribution Width 16.4 % (11.5-14.5); White Blood Count 11.6 K/mm3 (4.5-10.0)
[2021-01-22 14:44] LABS: Alanine Aminotransferase 14 U/L (4-35); Albumin Level 3.5 g/dL (3.5-5.1); Alkaline Phosphatase 125 U/L (38-126); Anion Gap 12 mmol/L (8-16); Aspartate Amino Transferase 19 U/L (14-36); Bilirubin,Total 0.2 mg/dL (0.2-1.3); Blood Urea Nitrogen 71 mg/dL (7-17); Calcium 6.3 mg/dL (8.4-10.2); Carbon Dioxide 18 mmol/L (22-30); Chloride 103 mmol/L (98-107); Estimated CRCL calculation 7 ml/min; Estimated Glomerular Filt Rate 4; Glucose 193 mg/dL (65-110); Potassium 4.6 mmol/L (3.4-5.0); Sodium 133 mmol/L (137-145)
[2021-01-22 14:50] LABS: Prothrombin Time 13.3 Seconds (11.1-14.7)
[2021-01-22 14:51] LABS: Partial Thromboplastin Time 38.3 SECONDS (22.3-36.8)
[2021-01-22 15:03] LABS: Troponin I 0.106 ng/mL (0.000-0.034)
--- NOTE | 2021-01-22 16:42 | PM.IMPN ---
Progress Note: A&P Assessment and Plan (1) Hypoglycemia: Code(s): E16.2 - Hypoglycemia, unspecified Status: Acute Assessment and Plan: 01/20/21: I was reviewing the patient's labs and noticed that her glucose went from 248 to 81. I could not find how much insulin she had received so I called the nurse who told me she received NovoLog 30 units which was what she takes at home and that she was hypoglycemic at 40 earlier this morning at 10:50 and she received the hypoglycemic protocol but did not call to inform me of this. I called the patient and asked her when the last time she took her insulin was, she tells me she has not taken her insulin ?in a long time?. Review of medical record shows she had insulin prescribed February 2020 but was never refilled. Her hemoglobin A1c is 6.1% which is well controlled. Due to the patient's acute renal failure this will most likely hold on to the NovoLog insulin longer than expected. I talked to Dr. Stacy and the pharmacist about starting a dextrose drip to prevent further hypoglycemia. We placed her on IV Dextrose 10% at rate 50 cc/hr and this was able to be discontinued at 2153 after the patients glucoses became more stable in the 100's x4. We will continue checking glucose ACHS, hypoglycemic protocol and SSI as needed. 01/22/21: Hypoglycemia has resolved. (2) Malignant hypertensive urgency: Code(s): I16.0 - Hypertensive urgency Status: Acute Assessment and Plan: Patient's blood pressures were 200/100 on admission. She does not check her blood pressure at home. She just got insurance and does not have a regular PCP to follow up with get. She has seen Dr. Fernandez nephrology but the last time was 6 months ago. Continue amlodipine 10 mg, PO hydralazine 10 mg QID, and Clonidine 0.1 mg for blood pressure greater than 180 systolic per nephrology Seems to be better today, most recent 138/76 Continue monitoring. Make adjustments as needed. (3) Atypical chest pain: Code(s): R07.89 - Other chest pain Status: Acute Assessment and Plan: Patient's chest pain seems to be more respiratory in nature. Negative troponin x2 Chest x-ray shows No acute cardiopulmonary abnormality. Normal white blood cell count and differential, I do not believe she has pneumonia EKG shows normal sinus rhythm with rate 85 beats per minute, with possible anterior [place] Telemetry shows normal sinus rhythm at 103 beats per minute, no acute arrhythmia on tele Her lungs are clear at this time I will give her a breathing treatment to help open her airways Echocardiogram with trace mitral valve regurgitation, otherwise unremarkable w/ EF of 60-65% Cardiology consulted s/p rapid response with recurrence of chest pain in dialysis today, appreciate their recommendations (4) Acute renal failure: Code(s): N17.9 - Acute kidney failure, unspecified Status: Acute Assessment and Plan: Acute on chronic renal failure who presents with a creatinine of 14, BUN 96. Likely secondary to uncontrolled hypertension, diabetes Renal ultrasound showed Right renal cyst measuring 1.6 cm. Otherwise, unremarkable renal ultrasound. General Surgery placed Temporary Dialysis catheter Had short dialysis treatment yesterday which she tolerated well, has another one scheduled today Nephrology following, appreciate their recommendations Continue monitoring. (5) Anemia in chronic kidney disease: Code(s): N18.9 - Chronic kidney disease, unspecified; D63.1 - Anemia in chronic kidney disease Status: Acute Assessment and Plan: Normocytic anemia. Likely secondary to acute on chronic kidney failure H&H Stable at this time 7.4/23.3%. Iron panel showed slight iron deficiency. Vitamin
[2021-01-22] MEDS: HYDROcodone/acetaminophen (*CRX) 5-325 MG TABLET 1 TAB PO ×2 (17:10→23:07)
[2021-01-22 17:31] LABS: Glucose Point of Care 162 mg/dl (65-105)
--- NOTE | 2021-01-22 17:47 | PM.CNCAR ---
Assessment and Plan Assessment and plan (1) Chest pain: Qualifiers: Chest pain type: unspecified Qualified Code(s): R07.9 - Chest pain, unspecified Code(s): R07.9 - Chest pain, unspecified Status: Acute Assessment and Plan: Patient has had some chest discomfort since , likely related in part to volume overload, and some musculoskeletal soreness since the dialysis catheter was placed. She had more acute substernal chest pain on dialysis last night and tonight. She does have elevated troponins but the curve is flat, and her EKG changes are not impressive. She has multiple risk factors for CAD but no coronary artery calcification on her CT scan. I suspect this chest pain is caused by her adjustment to dialysis, musculoskeletal discomfort etc. I recommend repeating the EKG tomorrow and a Lexiscan stress test tomorrow. While we may ultimately need to do a cardiac catheterization if she continues to have chest pain. However I would like to avoid the contrast exposure if possible since she is still making some urine. Hopefully if the Lexiscan is normal, and with some reassurance and time, the chest discomfort will gradually resolve. (2) Hypertension: Code(s): I10 - Essential (primary) hypertension Status: Chronic Assessment and Plan: Unfortunately the patient has had uncontrolled hypertension since she was not able to refill her medications. BP now is running fairly well. (3) Acute renal failure: Code(s): N17.9 - Acute kidney failure, unspecified Status: Acute Assessment and Plan: Acute on chronic renal failure, started dialysis this admission. History of Present Illness History of Present Illness Consult date/time: 01/22/21 17:47 Reason For Visit: Renal Failure Narrative: Luis Villegas is a 40 y.o. female whom we were asked to see at the request of the hospitalists for our advice and opinion regarding her elevated troponins and chest pain, in consultation. The patient has a history of malignant hypertension, chronic kidney disease, type 2 diabetes mellitus and was admitted to the hospital for chest tightness, hypertensive urgency and acute renal failure. Unfortunately she had been uninsured and had not been taking her medications or followed up. Hemodialysis was initiated this admission. Ms. Smith was having problems with heaviness in her chest, chest tightness and some congestion over the weekend. When she presented to the emergency room on the , her blood pressure was 201/116, 200/132, and creatinine was 13. The patient had a hemodialysis catheter placed yesterday. She has had a lot of soreness and tenderness and aching of the area around the dialysis catheter in the right upper chest as well as right neck area. Last night she had and her 1st dialysis treatment she felt there was someone sitting on her chest on the pulling stretching sensation. A pain shot helped. Today on dialysis she had more tightness and chest discomfort, and heaviness in her chest which lasted for a long time. She is wondering if it was secondary to her anxiety as she admits that she is scared. Her troponins are: 0.106 and 0.102. EKG did not show any acute ischemic changes. Parents have not had heart disease but a sister has some problem with her heart. Review of Systems Constitutional: Constitutional: Reports no additional constitutional complaints Eyes: Eyes: Reports no additional eye complaints ENT: Denies epistaxis Cardiovascular: Cardiovascular: Reports chest pain, Denies pedal edema, Denies leg edema and Denies lightheadedness Respiratory: Respiratory: Reports chest congestion, Reports cough (Dry cough), Denies dyspnea and Denies dyspnea on exertion Gastrointestinal: Gastrointestinal: Denies abdominal pain, Denies melena and Denies hematoche
[2021-01-22 18:03] LABS: Troponin I 0.102 ng/mL (0.000-0.034)
[2021-01-22 18:21] LABS: Hepatitis B Core Ab Total Nonreactive (Nonreactive)
[2021-01-22 20:12] LABS: Glucose Point of Care 205 mg/dl (65-105)
[2021-01-22 20:57] LABS: Troponin I 0.087 ng/mL (0.000-0.034)
[2021-01-23] VITALS (11 sets, daily range): BP systolic 116–163; BP diastolic 63–84; PULSE 82–99; RESP 16–20; TEMP 36.5–37.2; O2SAT 99–100
[2021-01-23 05:14] LABS: Basophils Absolute Auto 0.1 K/mm3 (0.0-0.1); Basophils Percent Auto 0.6 % (0.2-1.2); Eosinophils Absolute Auto 0.3 K/mm3 (0-0.3); Eosinophils Percent Auto 2.6 % (0-4.4); Hematocrit 21.9 % (37.0-47.0); Immature Granulocyte Absolute 0.17 K/mm3 (0.00-0.031); Immature Granulocyte Percent A 1.7 % (0-0.5); Lymphocytes Absolute Auto 2.95 K/mm3 (0.9-3.2); Lymphocytes Percent Auto 30.2 % (18.3-44.2); Mean Corpuscular HGB Conc 29.7 g/dl (32-36); Mean Corpuscular Hemoglobin 25.4 pg (26-34); Mean Corpuscular Volume 85.5 fl (80-100); Monocytes Absolute Auto 0.7 K/mm3 (0.1-0.6); Monocytes Percent Auto 7.6 % (2.6-8.5); Neutrophils Absolute Auto 5.6 K/mm3 (1.3-6.7); Neutrophils Percent Auto 57.3 % (45.5-73.1); Platelet Count Result 246 k/mm3 (150-375); Red Blood Count 2.56 M/mm3 (4.2-5.4); White Blood Count 9.8 K/mm3 (4.5-10.0)
[2021-01-23 05:25] LABS: Hemoglobin 6.5 g/dL (12.0-15.0)
[2021-01-23 05:29] LABS: Alanine Aminotransferase 8 U/L (4-35); Albumin Level 3.2 g/dL (3.5-5.1); Alkaline Phosphatase 135 U/L (38-126); Anion Gap 11 mmol/L (8-16); Aspartate Amino Transferase 18 U/L (14-36); Bilirubin,Total 0.2 mg/dL (0.2-1.3); Blood Urea Nitrogen 77 mg/dL (7-17); Calcium 5.8 mg/dL (8.4-10.2); Carbon Dioxide 19 mmol/L (22-30); Chloride 102 mmol/L (98-107); Estimated CRCL calculation 7 ml/min; Estimated Glomerular Filt Rate 3; Glucose 181 mg/dL (65-110); Potassium 5.8 mmol/L (3.4-5.0); Sodium 132 mmol/L (137-145)
--- NOTE | 2021-01-23 08:00 | EST_ITS ---
Patient Info Name: Bakari Smith Age: 40 years : 1980 Gender: Female Ht: 63 in Wt: 247 lbs BSA: 2.30 m2 HR: 91 bpm BP: 136 / 67 mmHg Heart Rhythm: Sinus Rhythm Exam Date: 01/23/2021 10:30 AM Exam Location: [facility] Stress Patient Status: Inpatient Admit Date: 01/20/2021 Staff Ordering Physician: Shreya Vanessa MD Attending Provider: Miladys Goodwin PA-C Exercise Technologist: Stella Guevara CT Exercise Physician: Shreya Vanessa MD Exam Type: CA stress akhil w NM Study Info Indications R07.9 - Chest pain, unspecified A regadenoson stress test was performed. Summary 1. No abnormal ST-T wave changes with lexiscan. 2. Nuclear test results to follow. Protocol: Lexiscan Stress ECG Details Stage: REST Duration (min): 2 min : 14 sec HR (bpm): 92 SBP (mmHg): 136 DBP (mmHg): 67 Stage: REST Duration (min): 21 min : 7 sec HR (bpm): 95 SBP (mmHg): 136 DBP (mmHg): 67 Stage: STAGE 1 Duration (min): 1 min : 0 sec HR (bpm): 105 SBP (mmHg): 166 DBP (mmHg): 74 Stage: RECOVERY Duration (min): 1 min : 0 sec HR (bpm): 102 SBP (mmHg): 166 DBP (mmHg): 74 Stage: RECOVERY Duration (min): 2 min : 0 sec HR (bpm): 104 SBP (mmHg): 166 DBP (mmHg): 74 Stage: RECOVERY Duration (min): 3 min : 0 sec HR (bpm): 103 SBP (mmHg): 158 DBP (mmHg): 75 Stage: RECOVERY Duration (min): 3 min : 33 sec HR (bpm): 103 SBP (mmHg): 158 DBP (mmHg): 75 Rest HR: 95 bpm Peak HR: 105 bpm Rest Sys BP: 136 mmHg Peak Sys BP: 166 mmHg Max Pred HR: 178 bpm % Max Pred HR: 59 % Target HR: 151 bpm Max RPP: 17,430 bpm*mmHg BP Response: Normal blood pressure response Termination Reason: Completed protocol Cardiac Symptoms: None Total Time: 1 min : 0 sec Rest Ann BP: 67 mmHg Peak Ann BP: 74 mmHg Total Dose: 0.4 mg Resting ECG Normal sinus rhythm - normal ECG. Stress ECG No abnormal ST/T wave changes with exercise. Arrhythmias None. Report Signatures
--- NOTE | 2021-01-23 08:00 | ECG_ITS ---
Measurements Intervals [place] Rate: 86 P: 53 [place]: 135 QRS: 1 QRSD: 78 T: 100 QT: 389 QTc: 467 Interpretive Statements SINUS RHYTHM BORDERLINE R WAVE PROGRESSION, ANTERIOR LEADS BORDERLINE T WAVE ABNORMALITY- HIGH LATERAL LEADS BASELINE ARTIFACT- V5 BORDERLINE ECG Electronically Signed On 01-23-2021 8:57:32 ENTRY LEVEL [employer] by Tomasz Scott D.O.
[2021-01-23] MEDS: FAMOTIDINE 20 MG TABLET PO ×2 (08:15→21:19)
[2021-01-23] MEDS: HYDROcodone/acetaminophen (*CRX) 5-325 MG TABLET 1 TAB PO ×3 (08:15→21:19)
[2021-01-23] MEDS: IRON SUCROSE COMPLEX 200 MG in SODIUM CHLORIDE 0.9% IV 50 ML 120 MG IVPB (08:15)
[2021-01-23] MEDS: amLODIPine BESYLATE 5 MG TABLET 10 MG PO (08:15)
[2021-01-23] MEDS: hydrALAZINE HCL 25 MG TABLET PO ×4 (08:15→21:19)
[2021-01-23] MEDS: EPOETIN ALFA-EPBX 10,000 UNITS/ML VIAL 10000 UNITS IV PUSH (08:15)
[2021-01-23 08:59] LABS: Glucose Point of Care 112 mg/dl (65-105)
--- NOTE | 2021-01-23 09:30 | PC.NURSE ---
Pt to nuclear medicine for cardiac stress test
--- NOTE | 2021-01-23 10:22 | PM.PNCARD ---
Progress Note: A&P Assessment and Plan (1) Chest pain: Qualifiers: Chest pain type: unspecified Qualified Code(s): R07.9 - Chest pain, unspecified Code(s): R07.9 - Chest pain, unspecified Status: Acute Assessment and Plan: Patient has had some chest discomfort since [place], likely related in part to volume overload, and some musculoskeletal soreness since the dialysis catheter was placed. She had more acute substernal chest pain on dialysis. She does have elevated troponins but the curve is flat, and her EKG changes are not impressive. She has multiple risk factors for CAD but no coronary artery calcification on her CT scan. I suspect this chest pain is caused by her adjustment to dialysis, musculoskeletal discomfort etc. EKG 01/23/2021 at 8:54 a.m. shows NSR, poor R-wave progression, minor nonspecific T-wave changes, personally reviewed. The Karen was normal. Hopefully with some reassurance and time, the chest discomfort will gradually resolve. (2) Hypertension: Code(s): I10 - Essential (primary) hypertension Status: Chronic Assessment and Plan: Unfortunately the patient has had uncontrolled hypertension since she was not able to refill her medications. BP now is running fairly well. (3) Acute renal failure: Code(s): N17.9 - Acute kidney failure, unspecified Status: Acute Assessment and Plan: Acute on chronic renal failure, started dialysis this admission. Subjective Date/time seen: 01/23/21 10:22 Interval history: Follow-up for chest pain while on dialysis, elevated troponins (0.106, 0.102). Uncontrolled hypertension, and admitted with acute renal failure. Started dialysis this admission. Date of service 01/23/2021: Feeling better today, less sore, still a bit anxious. Lexiscan neg, EF 56%. Review of Systems Constitutional: Constitutional: Reports no additional constitutional complaints Eyes: Eyes: Reports no additional eye complaints ENT: Denies epistaxis Cardiovascular: Cardiovascular: Reports chest pain (Still sore at dialysis catheter site) Respiratory: Respiratory: Denies dyspnea and Denies dyspnea on exertion Gastrointestinal: Gastrointestinal: Denies abdominal pain Genitourinary: Genitourinary: Denies hematuria Musculoskeletal: Musculoskeletal: Reports no additional musculoskeletal complaints Integumentary/Breasts: Skin/Breast: Denies rash Neurologic: Reports system reviewed and no additional complaints, except as documented Psychiatric: Psychiatric: Reports anxiety Exam Const: General: comfortable and no acute distress HENMT: General nose exam: no epistaxis Eyes: EOM: EOMs intact bilaterally Neck: Neck: supple Resp: Effort & Inspection: normal respiratory effort Auscultation: clear to auscultation bilaterally Cardio: Rate: regular rate Rhythm: regular rhythm Heart sounds: no murmurs GI: GI Palp: Yes Soft to palpation and No Tenderness to palpation present (GI) Skin: General skin exam: no rashes or lesions noted Neuro: General: gait normal Cognition (Neuro): normal cognition Speech: normal speech Extrem: General: no edema and no pedal edema Psych: Mental Status: mental status grossly normal Affect: normal affect Objective Data Vital Signs Vital Signs: Vital Signs - 24 hr 01/22/21 12:00 01/22/21 13:30 01/22/21 13:46 Temperature 99.2 F 99.1 F Pulse Rate 91 96 89 Respiratory Rate 12 16 Blood Pressure 143/77 H 146/83 H 138/74 Pulse Oximetry 100 01/22/21 13:50 01/22/21 14:00 01/22/21 14:14 Temperature 99.1 F 99.1 F Pulse Rate 92 91 94 Respiratory Rate 16 16 Blood Pressure 152/86 H 154/78 H 138/74 Pulse Oximetry 01/22/21 16:00 01/22/21 18:00 01/22/21 20:00 Temperature 98.8 F 98.9 F Pulse Rate 93 92 91 Respiratory Rate 12 18 Blood Pressure 138/76 124/66 Pulse Oximetry 100 100 01/22/21 22:00 01/22/21 22:58 01/22/21 23:46 Temperature 97.8 F
--- NOTE | 2021-01-23 11:38 | PC.NURSE ---
Pt returned from stress test
[2021-01-23 12:28] LABS: Hematocrit 24.4 % (37.0-47.0); Hemoglobin 7.4 g/dL (12.0-15.0)
[2021-01-23 13:34] LABS: Glucose Point of Care 130 mg/dl (65-105)
--- NOTE | 2021-01-23 13:34 | PM.PNNEP ---
Progress Note: A&P Assessment and Plan (1) Chronic kidney disease, stage 5: Code(s): N18.5 - Chronic kidney disease, stage 5 Status: Acute Assessment and Plan: The patient has end-stage renal disease. This is likely due to diabetes and hypertension. She started dialysis but yesterday had a false start because of the chest pain. Working on outpatient placement. Will do another dialysis treatment tomorrow (2) Anemia in chronic kidney disease: Code(s): N18.9 - Chronic kidney disease, unspecified; D63.1 - Anemia in chronic kidney disease Status: Acute Assessment and Plan: The patient's hemoglobin was below 7 This a.m. but is up to 7.4 today. try to hold off on transfusions because the patient is going to want a kidney transplant. She is getting iron supplements IV every day and also getting Epogen. I gave her an injection of subcu EPO today because she did not get yesterday. (3) Chest pain: Qualifiers: Chest pain type: unspecified Qualified Code(s): R07.9 - Chest pain, unspecified Code(s): R07.9 - Chest pain, unspecified Status: Acute Assessment and Plan: The patient is having some chest pain. This will be evaluated by the hospitalist. I do not hear a rub. (4) HTN (hypertension): Qualifiers: Hypertension type: unspecified Qualified Code(s): I10 - Essential (primary) hypertension Code(s): I10 - Essential (primary) hypertension Status: Acute Assessment and Plan: Blood pressure is slowly better. She is on amlodipine , lisinopril, and hydralazine. She is also on p.r.n. clonidine. blood pressure is doing much better. (5) Gastroesophageal reflux: Code(s): K21.9 - Gastro-esophageal reflux disease without esophagitis Status: Acute Assessment and Plan: She is on famotidine (6) Diabetes: Code(s): E11.9 - Type 2 diabetes mellitus without complications Status: Chronic Assessment and Plan: She is getting insulin sliding scale Subjective Date/time seen: 01/23/21 13:34 Interval history: Patient was seen earlier today. She still has some discomfort at the site of the dialysis catheter. She says that on dialysis last night she had heaviness like summary was standing on top of her chest when she just initiated the treatment. The treatment was discontinued for that reason. Troponins were checked and her a little bit high. Cardiology consult is requested. Lexiscan was done and this was negative. The patient is wondering if she has some anxiety. Exam Narrative: WDWN in NAD skin no rash or subcu nodules head ncat lungs clear . Some tenderness long catheter tunnel and exit site. It is only 2 days old and this is not unexpected. cor reg no rub Or gallop abd BS+ nontender and soft ext trace edema. Objective Data Vital Signs Vital Signs: Vital Signs - 24 hr 01/22/21 13:46 01/22/21 13:50 01/22/21 14:00 Temperature 37.3 C Pulse Rate 89 92 91 Respiratory Rate 16 Blood Pressure 138/74 152/86 H 154/78 H Pulse Oximetry 01/22/21 14:14 01/22/21 16:00 01/22/21 18:00 Temperature 37.3 C 37.1 C Pulse Rate 94 93 92 Respiratory Rate 16 12 Blood Pressure 138/74 138/76 Pulse Oximetry 100 01/22/21 20:00 01/22/21 22:00 01/22/21 22:58 Temperature 37.2 C 36.6 C Pulse Rate 91 88 90 Respiratory Rate 18 20 Blood Pressure 124/66 138/71 Pulse Oximetry 100 98 01/22/21 23:46 01/23/21 02:00 01/23/21 04:00 Temperature 36.5 C Pulse Rate 92 82 84 Respiratory Rate 20 20 Blood Pressure 144/84 H Pulse Oximetry 98 100 01/23/21 06:00 01/23/21 08:00 01/23/21 10:00 Temperature 37.2 C Pulse Rate 86 82 95 Respiratory Rate 20 Blood Pressure 163/81 H Pulse Oximetry 100 01/23/21 12:00 Temperature 36.6 C Pulse Rate 93 Respiratory Rate 16 Blood Pressure 140/68 Pulse Oximetry 100 Intake/Output Intake/Output:
[2021-01-23] MEDS: ALPRAZolam (*CRX) 0.25 MG TABLET PO (14:22)
[2021-01-23 15:30] LABS: Hematocrit 22.8 % (37.0-47.0)
--- NOTE | 2021-01-23 15:42 | P.PNIM_ITS ---
Progress Note: A&P Assessment and Plan (1) Hypoglycemia: Code(s): E16.2 - Hypoglycemia, unspecified Status: Acute Assessment and Plan: 01/20/21: I was reviewing the patient's labs and noticed that her glucose went from 248 to 81. I could not find how much insulin she had received so I called the nurse who told me she received NovoLog 30 units which was what she takes at home and that she was hypoglycemic at 40 earlier this morning at 10:50 and she received the hypoglycemic protocol but did not call to inform me of this. I called the patient and asked her when the last time she took her insulin was, sh ren tells me she has not taken her insulin ?in a long time?. Review of medical record shows she had insulin prescribed February 2020 but was never refilled. Her hemoglobin A1c is 6.1% which is well controlled. Due to the patient's acute renal failure this will most likely hold on to the NovoLog insulin longer than expected. I talked to Dr. Stacy and the pharmacist about starting a dextrose drip to prevent further hypoglycemia. We placed her on IV Dextrose 10% at rate 50 cc/hr and this was able to be discontinued at 2153 after the patients glucoses became more stable in the 100's x4. We will continue checking glucose ACHS, hypoglycemic protocol and SSI as needed. 01/22/21: Hypoglycemia has resolved. (2) Malignant hypertensive urgency: Code(s): I16.0 - Hypertensive urgency Status: Acute Assessment and Plan: Patient's blood pressures were 200/100 on admission. She does not check her blood pressure at home. She just got insurance and does not have a regular PCP to follow up with get. She has seen Dr. Fernandez nephrology but the last time was 6 months ago. * Continue amlodipine 10 mg, PO hydralazine 10 mg QID, and Clonidine 0.1 mg for blood pressure greater than 180 systolic per nephrology * Seems to be better today, most recent 138/76 Continue monitoring. Make adjustments as needed. (3) Atypical chest pain: Code(s): R07.89 - Other chest pain Status: Acute Assessment and Plan: Patient's chest pain seems to be more respiratory in nature. * Negative troponin x2 * Chest x-ray shows No acute cardiopulmonary abnormality. * Normal white blood cell count and differential, I do not believe she has pneumonia * EKG shows normal sinus rhythm with rate 85 beats per minute, with possible anterior [place] * Telemetry shows normal sinus rhythm at 103 beats per minute, no acute arrhythmia on tele * Her lungs are clear at this time * I will give her a breathing treatment to help open her airways * Echocardiogram with trace mitral valve regurgitation, otherwise unremarkable w/ EF of 60-65% * Cardiology consulted s/p rapid response with recurrence of chest pain in dialysis today, appreciate their recommendations (4) Acute renal failure: Code(s): N17.9 - Acute kidney failure, unspecified Status: Acute Assessment and Plan: Acute on chronic renal failure who presents with a creatinine of 14, BUN 96. Likely secondary to uncontrolled hypertension, diabetes * Renal ultrasound showed Right renal cyst measuring 1.6 cm. Otherwise, unremarkable renal ultrasound. * General Surgery placed Temporary Dialysis catheter * Had short dialysis treatment yesterday which she tolerated well, has another o ne scheduled today * Nephrology following, appreciate their recommendations Continue monitoring. (5)
--- NOTE | 2021-01-23 16:15 | PM.IMPN ---
Progress Note: A&P Assessment and Plan (1) Acute renal failure: Code(s): N17.9 - Acute kidney failure, unspecified Status: Acute Assessment and Plan: Acute on chronic renal failure who presents with a creatinine of 14, BUN 96. Likely secondary to uncontrolled hypertension, diabetes Renal ultrasound showed Right renal cyst measuring 1.6 cm. Otherwise, unremarkable renal ultrasound. General Surgery placed Temporary Dialysis catheter Had short dialysis treatment 2 days ago, will have another tomorrow Nephrology following, appreciate their recommendations Continue monitoring. (2) Malignant hypertensive urgency: Code(s): I16.0 - Hypertensive urgency Status: Acute Assessment and Plan: Patient's blood pressures were 200/100 on admission. She does not check her blood pressure at home. She just got insurance and does not have a regular PCP to follow up with get. She has seen Dr. Fernandez nephrology but the last time was 6 months ago. Continue amlodipine 10 mg, PO hydralazine 10 mg QID, and Clonidine 0.1 mg for blood pressure greater than 180 systolic per nephrology Seems to be improving slowly Continue monitoring. Make adjustments as needed. (3) Anemia in chronic kidney disease: Code(s): N18.9 - Chronic kidney disease, unspecified; D63.1 - Anemia in chronic kidney disease Status: Acute Assessment and Plan: Normocytic anemia. Likely secondary to acute on chronic kidney failure Iron panel showed slight iron deficiency. Vitamin B12, folic acid, TSH are normal Nephrology has started iron H&H Stable, did dip down to 6.5 this morning, nephrology did Epo injection Now 7.0, will continue to monitor q8hr Nephrology following, appreciate their input. Trying to avoid transfusions at this time in the event of possible kidney transplant in the future. (4) Atypical chest pain: Code(s): R07.89 - Other chest pain Status: Acute Assessment and Plan: Negative troponin x2 Chest x-ray shows No acute cardiopulmonary abnormality. EKG shows normal sinus rhythm with rate 85 beats per minute, with possible anterior [place] Telemetry shows normal sinus rhythm at 103 beats per minute, no acute arrhythmia on tele Echocardiogram with trace mitral valve regurgitation, otherwise unremarkable w/ EF of 60-65% Negative Karen scan today. Cardiology following, suspect chest pain is caused by adjustment to dialysis and musculoskeletal discomfort. Could also be some anxiety component as patient admits to being very anxious about dialysis. (5) Hypoglycemia: Code(s): E16.2 - Hypoglycemia, unspecified Status: Acute Assessment and Plan: 01/20/21: I was reviewing the patient's labs and noticed that her glucose went from 248 to 81. I could not find how much insulin she had received so I called the nurse who told me she received NovoLog 30 units which was what she takes at home and that she was hypoglycemic at 40 earlier this morning at 10:50 and she received the hypoglycemic protocol but did not call to inform me of this. I called the patient and asked her when the last time she took her insulin was, she tells me she has not taken her insulin ?in a long time?. Review of medical record shows she had insulin prescribed February 2020 but was never refilled. Her hemoglobin A1c is 6.1% which is well controlled. Due to the patient's acute renal failure this will most likely hold on to the NovoLog insulin longer than expected. I talked to Dr. Stacy and the pharmacist about starting a dextrose drip to prevent further hypoglycemia. We placed her on IV Dextrose 10% at rate 50 cc/hr and this was able to be discontinued at 2152 after the patients glucoses became more stable in the 100's x4. We will yumiko
[2021-01-23 17:06] LABS: Glucose Point of Care 230 mg/dl (65-105)
[2021-01-23] MEDS: INSULIN ASPART (*BKC) 100 UNITS/ML SUB-Q (17:20)
[2021-01-23 20:31] LABS: Hematocrit 21.9 % (37.0-47.0)
[2021-01-23 20:55] LABS: Hemoglobin 6.8 g/dL (12.0-15.0)
[2021-01-23 21:30] LABS: Glucose Point of Care 87 mg/dl (65-105)
[2021-01-24] VITALS (21 sets, daily range): BP systolic 115–174; BP diastolic 62–106; PULSE 82–100; RESP 16–20; TEMP 35.8–37; O2SAT 100
[2021-01-24] MEDS: ONDANSETRON INJ 4 MG/2 ML VIAL IV PUSH (01:15)
[2021-01-24] MEDS: HYDROcodone/acetaminophen (*CRX) 5-325 MG TABLET 1 TAB PO ×4 (01:22→17:19)
[2021-01-24 05:47] LABS: Basophils Absolute Auto 0.1 K/mm3 (0.0-0.1); Basophils Percent Auto 0.6 % (0.2-1.2); Eosinophils Absolute Auto 0.2 K/mm3 (0-0.3); Eosinophils Percent Auto 1.5 % (0-4.4); Hematocrit 22.9 % (37.0-47.0); Immature Granulocyte Percent A 0.8 % (0-0.5); Lymphocytes Absolute Auto 2.09 K/mm3 (0.9-3.2); Lymphocytes Percent Auto 17.1 % (18.3-44.2); Mean Corpuscular HGB Conc 30.1 g/dl (32-36); Mean Corpuscular Hemoglobin 25.7 pg (26-34); Mean Corpuscular Volume 85.1 fl (80-100); Mean Platelet Volume 10.1 fl (7.4-10.4); Monocytes Absolute Auto 0.7 K/mm3 (0.1-0.6); Monocytes Percent Auto 5.4 % (2.6-8.5); Neutrophils Absolute Auto 9.1 K/mm3 (1.3-6.7); Neutrophils Percent Auto 74.6 % (45.5-73.1); Platelet Count Result 268 k/mm3 (150-375); Red Blood Count 2.69 M/mm3 (4.2-5.4); Red Cell Distribution Width 16.2 % (11.5-14.5); White Blood Count 12.2 K/mm3 (4.5-10.0)
[2021-01-24 05:49] LABS: Hemoglobin 6.9 g/dL (12.0-15.0)
[2021-01-24 06:08] LABS: Alanine Aminotransferase 7 U/L (4-35); Albumin Level 3.3 g/dL (3.5-5.1); Alkaline Phosphatase 125 U/L (38-126); Anion Gap 13 mmol/L (8-16); Aspartate Amino Transferase 23 U/L (14-36); Bilirubin,Total 0.2 mg/dL (0.2-1.3); Blood Urea Nitrogen 81 mg/dL (7-17); Calcium 6.1 mg/dL (8.4-10.2); Carbon Dioxide 17 mmol/L (22-30); Chloride 103 mmol/L (98-107); Estimated CRCL calculation 6 ml/min; Estimated Glomerular Filt Rate 3; Glucose 127 mg/dL (65-110); Potassium 6.5 mmol/L (3.4-5.0); Sodium 133 mmol/L (137-145)
[2021-01-24] MEDS: hydrALAZINE HCL 25 MG TABLET PO ×4 (07:51→20:24)
[2021-01-24] MEDS: FAMOTIDINE 20 MG TABLET PO ×2 (07:51→20:24)
[2021-01-24] MEDS: amLODIPine BESYLATE 5 MG TABLET 10 MG PO (07:51)
[2021-01-24] MEDS: ALPRAZolam (*CRX) 0.25 MG TABLET PO (07:51)
--- NOTE | 2021-01-24 08:30 | PC.NURSE ---
Pt to dialysis via bed
[2021-01-24] MEDS: IRON SUCROSE COMPLEX 200 MG in SODIUM CHLORIDE 0.9% IV 50 ML 120 MG IVPB (09:41)
[2021-01-24] MEDS: SODIUM CHLORIDE 0.9% IV 1,000 ML 999 ML IV CONT (09:42)
[2021-01-24 10:23] LABS: Glucose Point of Care 101 mg/dl (65-105)
[2021-01-24] MEDS: EPOETIN ALFA-EPBX 10,000 UNITS/ML VIAL 10000 UNITS IV PUSH (10:25)
--- NOTE | 2021-01-24 10:43 | PM.PNCARD ---
Progress Note: A&P Assessment and Plan (1) Chest pain: Qualifiers: Chest pain type: unspecified Qualified Code(s): R07.9 - Chest pain, unspecified Code(s): R07.9 - Chest pain, unspecified Status: Acute Assessment and Plan: Patient has had some chest discomfort since [place], likely related in part to volume overload, and some musculoskeletal soreness since the dialysis catheter was placed. She had more acute substernal chest pain on dialysis. She does have elevated troponins but the curve is flat, and her EKG changes are not impressive. She has multiple risk factors for CAD but no coronary artery calcification on her CT scan. I suspect this chest pain is caused by her adjustment to dialysis, musculoskeletal discomfort etc. EKG 01/23/2021 at 8:54 a.m. shows NSR, poor R-wave progression, minor nonspecific T-wave changes, personally reviewed. The Karen was normal. Hopefully with some reassurance and time, the chest discomfort will gradually resolve. (2) Hypertension: Code(s): I10 - Essential (primary) hypertension Status: Chronic Assessment and Plan: Unfortunately the patient has had uncontrolled hypertension since she was not able to refill her medications. BP now is running fairly well. (3) Acute renal failure: Code(s): N17.9 - Acute kidney failure, unspecified Status: Acute Assessment and Plan: Acute on chronic renal failure, started dialysis this admission. Subjective Date/time seen: 01/24/21 10:43 Interval history: Follow-up for chest pain while on dialysis, elevated troponins (0.106, 0.102). Uncontrolled hypertension, and admitted with acute renal failure. Started dialysis this admission. Date of service 01/23/2021: Feeling better today, less sore, still a bit anxious. Lexiscan neg, EF 56%. Date of service 01/24/2021: Review of Systems Constitutional: Constitutional: Reports no additional constitutional complaints Eyes: Eyes: Reports no additional eye complaints ENT: Denies epistaxis Cardiovascular: Cardiovascular: Reports chest pain (Still sore at dialysis catheter site), Denies pedal edema, Denies leg edema, Denies lightheadedness, Denies dyspnea and Denies dyspnea on exertion Respiratory: Respiratory: Reports chest congestion, Reports cough (Dry cough), Denies dyspnea and Denies dyspnea on exertion Gastrointestinal: Gastrointestinal: Denies abdominal pain, Denies melena and Denies hematochezia Genitourinary: Genitourinary: Denies hematuria Musculoskeletal: Musculoskeletal: Reports no additional musculoskeletal complaints Integumentary/Breasts: Skin/Breast: Denies rash Neurologic: Reports system reviewed and no additional complaints, except as documented and Denies confusion Psychiatric: Psychiatric: Reports anxiety and Denies confusion Exam Narrative: Pleasant middle-aged female in no distress, sitting on the edge of her bed talking to her daughter on the phone Const: General: comfortable and no acute distress; No confusion Orientation/consciousness: No confusion HENMT: General nose exam: no epistaxis Mouth: Yes moist mucous membranes Eyes: EOM: EOMs intact bilaterally Neck: Neck: supple and no JVD Thyroid: thyroid normal Carotids: no bruits Lymphatic: lymphadenopathy not noted Resp: Effort & Inspection: normal respiratory effort Auscultation: clear to auscultation bilaterally Cardio: Rate: regular rate Rhythm: regular rhythm Heart sounds: no murmurs GI: Inspection: non-distended Skin: General skin exam: normal color and no rashes or lesions noted Wounds: wounds noted Other: Hemodialysis catheter right upper chest, very tender, in this area and right neck area, some bloody drainage on dressing. Neuro: General: gait normal and No confusion Cognition (Neuro): normal cognition Speech: normal speech Motor exam (neuro): Normal motor muscle tone present throughout Extrem: Genera
--- NOTE | 2021-01-24 11:01 | PC.NURSE ---
Pt returned to room from dialysis. 1L removed
[2021-01-24 12:03] LABS: Glucose Point of Care 201 mg/dl (65-105)
[2021-01-24 12:15] LABS: Hematocrit 25.1 % (37.0-47.0); Hemoglobin 7.6 g/dL (12.0-15.0)
--- NOTE | 2021-01-24 12:38 | PM.PNNEP ---
Progress Note: A&P Assessment and Plan (1) Chronic kidney disease, stage 5: Code(s): N18.5 - Chronic kidney disease, stage 5 Status: Acute Assessment and Plan: The patient has end-stage renal disease. This is likely due to diabetes and hypertension. She started dialysis. the patient is tolerating dialysis so far without any chest pain. Working on outpatient placement. (2) Anemia in chronic kidney disease: Code(s): N18.9 - Chronic kidney disease, unspecified; D63.1 - Anemia in chronic kidney disease Status: Acute Assessment and Plan: The patient's hemoglobin Is up and down around 7. try to hold off on transfusions because the patient is going to want a kidney transplant. On iron supplements and Epogen. (3) Chest pain: Qualifiers: Chest pain type: unspecified Qualified Code(s): R07.9 - Chest pain, unspecified Code(s): R07.9 - Chest pain, unspecified Status: Acute Assessment and Plan: The patient is having some chest pain. This will be evaluated by the hospitalist. I do not hear a rub. (4) HTN (hypertension): Qualifiers: Hypertension type: unspecified Qualified Code(s): I10 - Essential (primary) hypertension Code(s): I10 - Essential (primary) hypertension Status: Acute Assessment and Plan: Blood pressure is slowly better. She is on amlodipine , lisinopril, and hydralazine. She is also on p.r.n. clonidine. blood pressure is doing much better. (5) Gastroesophageal reflux: Code(s): K21.9 - Gastro-esophageal reflux disease without esophagitis Status: Acute Assessment and Plan: She is on famotidine (6) Diabetes: Code(s): E11.9 - Type 2 diabetes mellitus without complications Status: Chronic Assessment and Plan: She is getting insulin sliding scale Subjective Date/time seen: 01/24/21 08:50 Interval history: Patient Is on dialysis. Tolerating it well so far . No chest pain. Patient was seen at 8 50 a.m. Exam Narrative: WDWN in NAD skin no rash or subcu nodules head ncat lungs clear. cor reg no rub or gallop abd BS+ nontender and soft ext trace edema. Objective Data Vital Signs Vital Signs: Vital Signs - 24 hr 01/23/21 14:00 01/23/21 16:00 01/23/21 18:00 Temperature 37.1 C Pulse Rate 94 94 93 Respiratory Rate 18 Blood Pressure 133/73 Pulse Oximetry 100 01/23/21 20:00 01/23/21 22:00 01/24/21 00:00 Temperature 36.8 C Pulse Rate 92 88 99 Respiratory Rate 20 20 Blood Pressure 116/63 Pulse Oximetry 99 100 01/24/21 02:00 01/24/21 04:00 01/24/21 06:00 Temperature 36.4 C Pulse Rate 96 99 94 Respiratory Rate 20 Blood Pressure 153/74 H Pulse Oximetry 100 01/24/21 08:00 01/24/21 08:35 01/24/21 08:46 Temperature 35.8 C L 36.4 C L Pulse Rate 97 85 85 Respiratory Rate 16 18 Blood Pressure 171/93 H 115/62 154/82 H Pulse Oximetry 100 01/24/21 09:00 01/24/21 09:15 01/24/21 09:30 Temperature Pulse Rate 84 82 82 Respiratory Rate Blood Pressure 162/87 H 144/86 H 156/77 H Pulse Oximetry 01/24/21 09:45 01/24/21 10:00 01/24/21 10:15 Temperature Pulse Rate 88 93 97 Respiratory Rate Blood Pressure 154/97 H 163/88 H 169/75 H Pulse Oximetry 01/24/21 10:30 Temperature 36.4 C L Pulse Rate 100 Respiratory Rate 18 Blood Pressure 174/106 H Pulse Oximetry Intake/Output Intake/Output: Intake & Output 01/21/21 01/22/21 01/23/21 01/24/21 23:59 23:59 23:59 23:59 Intake Total 50 1500 1520 310 Output Total 1275 0 300 836 Balance -1225 1500 1220 -526 Meds/Results Medications: Active Medications Generic Name Dose Route Start Last Admin Trade Name Freq PRN Reason Stop Dose Admin Acetaminophen 650 mg 01/20/21 16:21 01/22/21 12:34 Acetaminophen 325 Mg Tablet PO 650 mg Q4H PRN Administration Mild Pain (1-3) or Fever Hydrocodone Bi
--- NOTE | 2021-01-24 12:42 | PM.EVENT ---
Event Note Event Note Event Note: Discussed with dialysis nurse. About 1.5hours into dialysis the catheter suddenly stopped working. She was unable to draw from or push in to the arterial port but the venous port was also giving her trouble. I reached out to Dr. Nelson.
[2021-01-24] MEDS: INSULIN ASPART (*BKC) 100 UNITS/ML SUB-Q ×2 (13:02→18:24)
--- NOTE | 2021-01-24 13:32 | PC.NURSE ---
On 01/24/21, the student, [Addie Ambrose], provided care and completed [facility] documentation on this patient. I have reviewed the student's documentation and agree with the findings.
[2021-01-24] MEDS: HEPARIN SODIUM LOCK FLUSH 500 UNITS/5 ML VIAL (17:03)
[2021-01-24] MEDS: ALTEPLASE 2 MG VIAL (CATHFLO) IV PUSH ×2 (17:12→17:13)
--- NOTE | 2021-01-24 17:13 | PC.NURSE ---
Cathflo administered by dialysis nurse Nelly in both lumens
--- NOTE | 2021-01-24 17:29 | PM.IMPN ---
Progress Note: A&P Assessment and Plan (1) Acute renal failure: Code(s): N17.9 - Acute kidney failure, unspecified Status: Acute Assessment and Plan: Acute on chronic renal failure who presents with a creatinine of 14, BUN 96. Likely secondary to uncontrolled hypertension, diabetes Renal ultrasound showed Right renal cyst measuring 1.6 cm. Otherwise, unremarkable renal ultrasound. General Surgery placed Temporary Dialysis catheter Had short dialysis treatment 2 days ago, and had another today Dialysis catheter stopped suddenly during tx today, general surgery was notified Nephrology following, appreciate their recommendations (2) Malignant hypertensive urgency: Code(s): I16.0 - Hypertensive urgency Status: Acute Assessment and Plan: Patient's blood pressures were 200/100 on admission. She does not check her blood pressure at home. She just got insurance and does not have a regular PCP to follow up with get. She has seen Dr. Fernandez nephrology but the last time was 6 months ago. Continue amlodipine 10 mg, PO hydralazine 10 mg QID, and Clonidine 0.1 mg for blood pressure greater than 180 systolic per nephrology Seems to be improving slowly Continue monitoring. Make adjustments as needed. (3) Anemia in chronic kidney disease: Code(s): N18.9 - Chronic kidney disease, unspecified; D63.1 - Anemia in chronic kidney disease Status: Acute Assessment and Plan: Normocytic anemia. Likely secondary to acute on chronic kidney failure Iron panel showed slight iron deficiency. Vitamin B12, folic acid, TSH are normal Nephrology has started iron H&H Stable, did dip down to 6.5, nephrology did Epo injection Now 7.6, will continue to monitor q8hr Nephrology following, appreciate their input. Trying to avoid transfusions at this time in the event of possible kidney transplant in the future. (4) Atypical chest pain: Code(s): R07.89 - Other chest pain Status: Acute Assessment and Plan: Negative troponin x2 Chest x-ray shows No acute cardiopulmonary abnormality. EKG shows normal sinus rhythm with rate 85 beats per minute, with possible anterior [place] Telemetry shows normal sinus rhythm at 103 beats per minute, no acute arrhythmia on tele Echocardiogram with trace mitral valve regurgitation, otherwise unremarkable w/ EF of 60-65% Negative Karen scan today. Cardiology following, suspect chest pain is caused by adjustment to dialysis and musculoskeletal discomfort. Could also be some anxiety component as patient admits to being very anxious about dialysis. Resolved at this time (5) Hypoglycemia: Code(s): E16.2 - Hypoglycemia, unspecified Status: Acute Assessment and Plan: 01/20/21: I was reviewing the patient's labs and noticed that her glucose went from 248 to 81. I could not find how much insulin she had received so I called the nurse who told me she received NovoLog 30 units which was what she takes at home and that she was hypoglycemic at 40 earlier this morning at 10:50 and she received the hypoglycemic protocol but did not call to inform me of this. I called the patient and asked her when the last time she took her insulin was, she tells me she has not taken her insulin ?in a long time?. Review of medical record shows she had insulin prescribed February 2020 but was never refilled. Her hemoglobin A1c is 6.1% which is well controlled. Due to the patient's acute renal failure this will most likely hold on to the NovoLog insulin longer than expected. I talked to Dr. Stacy and the pharmacist about starting a dextrose drip to prevent further hypoglycemia. We placed her on IV Dextrose 10% at rate 50 cc/hr and this was able to be discontinued at 2152 after the p
[2021-01-24 17:42] LABS: Glucose Point of Care 203 mg/dl (65-105)
[2021-01-24 22:15] LABS: Glucose Point of Care 213 mg/dl (65-105)
[2021-01-25] VITALS (16 sets, daily range): BP systolic 134–162; BP diastolic 60–75; PULSE 86–103; RESP 14–20; TEMP 36.4–37.1; O2SAT 100
[2021-01-25] MEDS: HYDROcodone/acetaminophen (*CRX) 5-325 MG TABLET 1 TAB PO ×4 (00:35→22:03)
[2021-01-25] MEDS: ONDANSETRON INJ 4 MG/2 ML VIAL IV PUSH (04:45)
[2021-01-25 05:42] LABS: Basophils Absolute Auto 0.1 K/mm3 (0.0-0.1); Basophils Percent Auto 0.7 % (0.2-1.2); Eosinophils Absolute Auto 0.3 K/mm3 (0-0.3); Eosinophils Percent Auto 2.3 % (0-4.4); Hematocrit 23.6 % (37.0-47.0); Hemoglobin 7.2 g/dL (12.0-15.0); Immature Granulocyte Absolute 0.19 K/mm3 (0.00-0.031); Immature Granulocyte Percent A 1.7 % (0-0.5); Lymphocytes Absolute Auto 2.61 K/mm3 (0.9-3.2); Lymphocytes Percent Auto 22.9 % (18.3-44.2); Mean Corpuscular HGB Conc 30.5 g/dl (32-36); Mean Corpuscular Volume 85.2 fl (80-100); Mean Platelet Volume 9.7 fl (7.4-10.4); Monocytes Absolute Auto 0.9 K/mm3 (0.1-0.6); Monocytes Percent Auto 7.5 % (2.6-8.5); Neutrophils Absolute Auto 7.4 K/mm3 (1.3-6.7); Neutrophils Percent Auto 64.9 % (45.5-73.1); Nucleated Red Blood Cells Perc 0.4 % (0.0-0.2); Platelet Count Result 293 k/mm3 (150-375); Red Blood Count 2.77 M/mm3 (4.2-5.4); White Blood Count 11.4 K/mm3 (4.5-10.0)
[2021-01-25 06:06] LABS: Anion Gap 11 mmol/L (8-16); Blood Urea Nitrogen 69 mg/dL (7-17); Calcium 6.2 mg/dL (8.4-10.2); Carbon Dioxide 19 mmol/L (22-30); Chloride 99 mmol/L (98-107); Estimated CRCL calculation 7 ml/min; Estimated Glomerular Filt Rate 3; Glucose 166 mg/dL (65-110); Potassium 5.1 mmol/L (3.4-5.0); Sodium 129 mmol/L (137-145)
--- NOTE | 2021-01-25 07:35 | PM.PNGS ---
Progress Note: A&P Assessment and Plan (1) Hemodialysis catheter dysfunction: Code(s): T82.41XA - Breakdown (mechanical) of vascular dialysis catheter, initial encounter Status: Acute Assessment and Plan: clotted, cathflo placed overnight, retry HD today Subjective Subjective Date/Time Seen: 01/25/21 07:35 feels ok, no acute issues, still c R neck soreness Review of Systems Review of Systems: All systems reviewed & are unremarkable except as noted in HPI and below Exam Const: General: cooperative, comfortable and no acute distress Neck: Other: RIJ TDC - C/D/I Chest: Chest palpation & inspection: normal inspection of the chest Objective Data Vital Signs Vital Signs: Vital Signs - 24 hr 01/24/21 08:00 01/24/21 08:35 01/24/21 08:46 Temperature 35.8 C L 36.4 C L Pulse Rate 97 85 85 Respiratory Rate 16 18 Blood Pressure 171/93 H 115/62 154/82 H Pulse Oximetry 100 01/24/21 09:00 01/24/21 09:15 01/24/21 09:30 Temperature Pulse Rate 84 82 82 Respiratory Rate Blood Pressure 162/87 H 144/86 H 156/77 H Pulse Oximetry 01/24/21 09:45 01/24/21 10:00 01/24/21 10:15 Temperature Pulse Rate 88 93 97 Respiratory Rate Blood Pressure 154/97 H 163/88 H 169/75 H Pulse Oximetry 01/24/21 10:30 01/24/21 12:00 01/24/21 14:00 Temperature 36.4 C L 36.5 C Pulse Rate 100 95 93 Respiratory Rate 18 18 Blood Pressure 174/106 H 136/65 Pulse Oximetry 100 01/24/21 16:00 01/24/21 18:00 01/24/21 20:00 Temperature 36.2 C L Pulse Rate 89 91 88 Respiratory Rate 16 17 Blood Pressure 142/75 H Pulse Oximetry 100 100 01/24/21 20:25 01/24/21 22:00 01/25/21 00:00 Temperature 36.5 C Pulse Rate 88 84 86 Respiratory Rate 17 20 Blood Pressure 123/64 Pulse Oximetry 100 100 01/25/21 00:15 01/25/21 02:00 01/25/21 04:00 Temperature 37.1 C 36.4 C Pulse Rate 86 89 103 H Respiratory Rate 20 18 Blood Pressure 134/71 140/70 Pulse Oximetry 100 100 01/25/21 06:00 Temperature Pulse Rate 92 Respiratory Rate Blood Pressure Pulse Oximetry Intake/Output Intake/Output: Intake & Output 01/22/21 01/23/21 01/24/21 01/25/21 23:59 23:59 23:59 23:59 Intake Total 1500 1520 1270 500 Output Total 0 300 1086 550 Balance 1500 1220 184 -50 Meds/Results Medications: Active Medications Generic Name Dose Route Start Last Admin Trade Name Freq PRN Reason Stop Dose Admin Acetaminophen 650 mg 01/20/21 16:21 01/22/21 12:34 Acetaminophen 325 Mg Tablet PO 650 mg Q4H PRN Administration Mild Pain (1-3) or Fever Hydrocodone Bitart/Acetaminophen 1 tab 01/22/21 16:05 01/25/21 00:35 Hydrocodone/Acetaminophen (*Crx) 5-325 Mg Tablet PO 1 tab Q4H PRN Administration Pain Rated 4-6 Albuterol 2.5 mg 01/21/21 10:12 Albuterol Sulfate Neb 2.5 Mg/0.5 Ml Inh INHALATION Q6HRT PRN SOB or wheezing Alprazolam 0.25 mg 01/23/21 12:17 01/24/21 07:51 Alprazolam (*Crx) 0.25 Mg Tablet PO 0.25 mg BID PRN Administration Anxiety Alteplase, Recombinant 2 mg 01/24/21 14:34 01/24/21 17:12 Alteplase 2 Mg Vial (Cathflo) IV PUSH 2 mg ONCE PRN Administration Line Occlusion Alteplase, Recombinant 2 mg 01/24/21 14:37 01/24/21 17:13 Alteplase 2 Mg Vial (Cathflo) IV PUSH 2 mg ONCE PRN Administration Line Occlusion Amlodipine Besylate 10 mg 01/20/21 09:00 01/24/21 07:51 Amlodipine Besylate 5 Mg Tablet PO 10 mg DAILY CHAYO Administration Bisacodyl 5 mg 01/20/21 02:01 Bisacodyl 5 Mg Tablet Ec PO ONCE PRN Constipation Calcium Carbonate 200 mg 01/20/21 08:28 Calcium Carbonate (Tums) 500 Mg (200 Mg Elemental) PO Q6H PRN Indigestion Clonidine HCl 0.1 mg 01/20/21 12:05 Clonidine Hcl 0.1 Mg Tablet PO Q6H PRN hypertension systolic >180 Dextrose 12.5 gm 01/20/21 06:51 01/20/21 13:15 Dextrose 50% 25 Gm/50 Ml Syringe IV PUSH 12.5 gm PRN PRN
[2021-01-25] MEDS: INSULIN ASPART (*BKC) 100 UNITS/ML SUB-Q ×2 (08:19→13:18)
[2021-01-25] MEDS: hydrALAZINE HCL 25 MG TABLET PO ×4 (08:21→22:03)
[2021-01-25] MEDS: FAMOTIDINE 20 MG TABLET PO ×2 (08:21→22:02)
[2021-01-25] MEDS: ALPRAZolam (*CRX) 0.25 MG TABLET PO ×2 (08:21→22:03)
[2021-01-25] MEDS: amLODIPine BESYLATE 5 MG TABLET 10 MG PO (08:21)
[2021-01-25 08:22] LABS: Glucose Point of Care 202 mg/dl (65-105)
--- NOTE | 2021-01-25 08:38 | PC.NURSE ---
Patient taken to dialysis on room air. A&O x 4. 08:37
--- NOTE | 2021-01-25 09:13 | PC.NURSE ---
Dialysis nurse Nelly called to inform me when she hooked patient up to Dialysis the patient began screaming out in pain. Nelly noticed a raised area above the catheter insertion site. Dialysis nurse said she disconnected dialysis and called me. Dr. Stacy has been notified. Dr. Nelson office has been notified and a request for Dr. Nelson to call dialysis nurse and myself has been made. Ashlie antonio STORE MANAGER does not work on Fridays. I asked the office to have Dr. Nelson call me as soon as possible.
--- NOTE | 2021-01-25 09:33 | PC.NURSE ---
Spoke to dialysis nurse said she spoke to Dr. Alfaro regarding possible crack in line. He told her he would look into it.
--- NOTE | 2021-01-25 09:45 | PC.NURSE ---
I spoke with Dr. Stacy and explained the entire situation to him. He said he is on his way to see the patient and assess the situation. 09:45
--- NOTE | 2021-01-25 10:23 | PM.PNNEP ---
Progress Note: A&P Assessment and Plan (1) Chronic kidney disease, stage 5: Code(s): N18.5 - Chronic kidney disease, stage 5 Status: Acute Assessment and Plan: The patient has end-stage renal disease. This is likely due to diabetes and hypertension. Today her potassium is 5.1. Will give her some Kayexalate because tomorrow will be higher and she is going to surgery tomorrow for the catheter. Her BUN and creatinine are a little bit better than they were on admission but not much because we can not get much dialysis done this catheter. Hopefully tomorrow's catheter will work much better. Working on outpatient placement. (2) Anemia in chronic kidney disease: Code(s): N18.9 - Chronic kidney disease, unspecified; D63.1 - Anemia in chronic kidney disease Status: Acute Assessment and Plan: The patient's hemoglobin Is up and down around 7. try to hold off on transfusions because the patient is going to want a kidney transplant. On iron supplements and Epogen. (3) Chest pain: Qualifiers: Chest pain type: unspecified Qualified Code(s): R07.9 - Chest pain, unspecified Code(s): R07.9 - Chest pain, unspecified Status: Acute Assessment and Plan: Lexiscan is negative (4) HTN (hypertension): Qualifiers: Hypertension type: unspecified Qualified Code(s): I10 - Essential (primary) hypertension Code(s): I10 - Essential (primary) hypertension Status: Acute Assessment and Plan: Blood pressure is slowly better. She is on amlodipine , lisinopril, and hydralazine. She is also on p.r.n. clonidine. Systematic is and 130s to 150s. (5) Gastroesophageal reflux: Code(s): K21.9 - Gastro-esophageal reflux disease without esophagitis Status: Acute Assessment and Plan: She is on famotidine (6) Diabetes: Code(s): E11.9 - Type 2 diabetes mellitus without complications Status: Chronic Assessment and Plan: She is getting insulin sliding scale Subjective Date/time seen: 01/25/21 10:23 Interval history: Patient is in a lot of pain. 1.5h into the tx the catheter stopped working. cathclear was instilled and this am the nurse tried the catheter and flow was sluggish then wouldn't flow at all. then the pt had severe pain just proximal to the cuff in the tunnel. now the patient is back in her room. She still has severe pain. She has received [place] and Tylenol. I asked him to put an ice pack on it. I talked with Dr. hameed who was going to replace the catheter tomorrow. Exam Narrative: WDWN in NAD skin no rash or subcu nodules head ncat lungs clear. cor reg no rub or gallop abd BS+ nontender and soft ext trace edema. The catheter tunnel looks okay right now but is very tender so the patient would not let me examine it. Objective Data Vital Signs Vital Signs: Vital Signs - 24 hr 01/24/21 10:30 01/24/21 12:00 01/24/21 14:00 Temperature 36.4 C L 36.5 C Pulse Rate 100 95 93 Respiratory Rate 18 18 Blood Pressure 174/106 H 136/65 Pulse Oximetry 100 01/24/21 16:00 01/24/21 18:00 01/24/21 20:00 Temperature 36.2 C L Pulse Rate 89 91 88 Respiratory Rate 16 17 Blood Pressure 142/75 H Pulse Oximetry 100 100 01/24/21 20:25 01/24/21 22:00 01/25/21 00:00 Temperature 36.5 C Pulse Rate 88 84 86 Respiratory Rate 17 20 Blood Pressure 123/64 Pulse Oximetry 100 100 01/25/21 00:15 01/25/21 02:00 01/25/21 04:00 Temperature 37.1 C 36.4 C Pulse Rate 86 89 103 H Respiratory Rate 20 18 Blood Pressure 134/71 140/70 Pulse Oximetry 100 100 01/25/21 06:00 01/25/21 07:48 01/25/21 09:40 Temperature 36.6 C 36.4 C Pulse Rate 92 95 93 Respiratory Rate 16 18 Blood Pressure 144/75 H 135/66 Pulse Oximetry 100 100 Intake/Output Intake/Output: Intake & Output 01/22/21 01/23/21 01/24/21 01/25/21 23:59 23:59 23:59 23:59 Intake Total 1500 1520 1
--- NOTE | 2021-01-25 11:32 | PM.PNCARD ---
Progress Note: A&P Assessment and Plan (1) Chest pain: Qualifiers: Chest pain type: unspecified Qualified Code(s): R07.9 - Chest pain, unspecified Code(s): R07.9 - Chest pain, unspecified Status: Acute Assessment and Plan: Patient has had some chest discomfort since [place], likely related in part to volume overload, and some musculoskeletal soreness since the dialysis catheter was placed. She had more acute substernal chest pain on dialysis. She does have elevated troponins but the curve is flat, and her EKG changes are not impressive. She has multiple risk factors for CAD but no coronary artery calcification on her CT scan. I suspect this chest pain is caused by her adjustment to dialysis, musculoskeletal discomfort etc. EKG 01/23/2021 at 8:54 a.m. shows NSR, poor R-wave progression, minor nonspecific T-wave changes, personally reviewed. Lexiscan was normal. No cardiac cause for CP. Thank you for asking us to see this patient. We will sign off for now. Please do not hesitate to contact us if we can be of assistance in the care of this patient in any way. (2) Hypertension: Code(s): I10 - Essential (primary) hypertension Status: Chronic Assessment and Plan: Unfortunately the patient has had uncontrolled hypertension since she was not able to refill her medications. BP now is running fairly well. (3) Acute renal failure: Code(s): N17.9 - Acute kidney failure, unspecified Status: Acute Assessment and Plan: Acute on chronic renal failure, started dialysis this admission. Subjective Date/time seen: 01/25/21 11:32 Interval history: Cardiology follow up for chest pain Date of service 01/25/2021: Complaining of pain at her HD catheter site. Otherwise is feeling okay. Reviewed results of lexiscan stress test with her. Denies shortness of breath, chest pain Review of Systems Review of Systems: All systems reviewed & are unremarkable except as noted in HPI and below Exam Const: General: no acute distress and uncomfortable Nutritional Appearance: overweight HENMT: Head: normal to inspection Ears: hearing grossly normal bilaterally Face and sinus: normal facial exam Eyes: General: appearance normal, both eyes and all related structures Neck: Neck: normal visual inspection Chest: Chest palpation & inspection: abnormal inspection of the chest and tenderness (surrounding HD catheter ) Resp: Effort & Inspection: normal respiratory effort Auscultation: clear to auscultation bilaterally Cardio: Rate: regular rate Rhythm: regular rhythm Heart sounds: no murmurs GI: Auscultation: normal bowel sounds Skin: General skin exam: normal color Neuro: General: patient oriented x3 Extrem: General: normal to inspection Psych: Appearance: grossly normal Mental Status: mental status grossly normal Objective Data Vital Signs Vital Signs: Vital Signs - 24 hr 01/24/21 12:00 01/24/21 14:00 01/24/21 16:00 Temperature 36.5 C 36.2 C L Pulse Rate 95 93 89 Respiratory Rate 18 16 Blood Pressure 136/65 142/75 H Pulse Oximetry 100 100 01/24/21 18:00 01/24/21 20:00 01/24/21 20:25 Temperature 36.5 C Pulse Rate 91 88 88 Respiratory Rate 17 17 Blood Pressure 123/64 Pulse Oximetry 100 100 01/24/21 22:00 01/25/21 00:00 01/25/21 00:15 Temperature 37.1 C Pulse Rate 84 86 86 Respiratory Rate 20 20 Blood Pressure 134/71 Pulse Oximetry 100 100 01/25/21 02:00 01/25/21 04:00 01/25/21 06:00 Temperature 36.4 C Pulse Rate 89 103 H 92 Respiratory Rate 18 Blood Pressure 140/70 Pulse Oximetry 100 01/25/21 07:48 01/25/21 09:40 Temperature 36.6 C 36.4 C Pulse Rate 95 93 Respiratory Rate 16 18 Blood Pressure 144/75 H 135/66 Pulse Oximetry 100 100 Intake/Output Intake/Output: Intake & Output 01/22/21 01/23/21 01/24/21 01/25/21 23:59 23:59 23:59 23:59 Intake Total 1500 1520 1270 500 Output Tota
--- NOTE | 2021-01-25 11:43 | PM.IMPN ---
Progress Note: A&P Assessment and Plan (1) Acute renal failure: Code(s): N17.9 - Acute kidney failure, unspecified Status: Acute Assessment and Plan: Acute on chronic renal failure who presents with a creatinine of 14, BUN 96. Likely secondary to uncontrolled hypertension, diabetes Renal ultrasound showed Right renal cyst measuring 1.6 cm. Otherwise, unremarkable renal ultrasound. General Surgery placed Temporary Dialysis catheter Have been attempting dialysis but catheter is not functioning properly, general surgery is going to place another one tomorrow Nephrology following, appreciate their recommendations (2) Malignant hypertensive urgency: Code(s): I16.0 - Hypertensive urgency Status: Acute Assessment and Plan: Patient's blood pressures were 200/100 on admission. She does not check her blood pressure at home. She just got insurance and does not have a regular PCP to follow up with get. She has seen Dr. Fernandez nephrology but the last time was 6 months ago. Continue amlodipine 10 mg, PO hydralazine 10 mg QID, and Clonidine 0.1 mg for blood pressure greater than 180 systolic per nephrology Seems to be improving slowly Continue monitoring. Make adjustments as needed. (3) Anemia in chronic kidney disease: Code(s): N18.9 - Chronic kidney disease, unspecified; D63.1 - Anemia in chronic kidney disease Status: Acute Assessment and Plan: Normocytic anemia. Likely secondary to acute on chronic kidney failure Iron panel showed slight iron deficiency. Vitamin B12, folic acid, TSH are normal Nephrology has started iron infusion H&H low but Stable, did dip down to 6.5, nephrology did Epo injection Nephrology following, appreciate their input. Trying to avoid transfusions at this time in the event of possible kidney transplant in the future. (4) Atypical chest pain: Code(s): R07.89 - Other chest pain Status: Acute Assessment and Plan: Negative troponin x2 Chest x-ray shows No acute cardiopulmonary abnormality. EKG shows normal sinus rhythm with rate 85 beats per minute, with possible anterior NV Telemetry shows normal sinus rhythm at 103 beats per minute, no acute arrhythmia on tele Echocardiogram with trace mitral valve regurgitation, otherwise unremarkable w/ EF of 60-65% Negative Karen scan today. Cardiology following, suspect chest pain is caused by adjustment to dialysis and musculoskeletal discomfort. Could also be some anxiety component as patient admits to being very anxious about dialysis. Resolved at this time (5) Hypoglycemia: Code(s): E16.2 - Hypoglycemia, unspecified Status: Acute Assessment and Plan: 01/20/21: I was reviewing the patient's labs and noticed that her glucose went from 248 to 81. I could not find how much insulin she had received so I called the nurse who told me she received NovoLog 30 units which was what she takes at home and that she was hypoglycemic at 40 earlier this morning at 10:50 and she received the hypoglycemic protocol but did not call to inform me of this. I called the patient and asked her when the last time she took her insulin was, she tells me she has not taken her insulin ?in a long time?. Review of medical record shows she had insulin prescribed February 2020 but was never refilled. Her hemoglobin A1c is 6.1% which is well controlled. Due to the patient's acute renal failure this will most likely hold on to the NovoLog insulin longer than expected. I talked to Dr. Stacy and the pharmacist about starting a dextrose drip to prevent further hypoglycemia. We placed her on IV Dextrose 10% at rate 50 cc/hr and this was able to be discontinued at 2152 after the patients glucoses became more stable in the 1
[2021-01-25 12:19] LABS: Glucose Point of Care 201 mg/dl (65-105)
[2021-01-25] MEDS: HYDROmorphone HCL INJ (*CRX) 1 MG/ML SYR 0.5 MG IV PUSH (13:20)
[2021-01-25] MEDS: diphenhydrAMINE HCl INJ 50 MG/ML VIAL 25 MG IV PUSH (13:21)
[2021-01-25] MEDS: IRON SUCROSE COMPLEX 200 MG in SODIUM CHLORIDE 0.9% IV 50 ML 120 MG IVPB (13:34)
--- NOTE | 2021-01-25 13:49 | PC.NURSE ---
On 01/25/21, the student, [Brittany Conley], provided care and completed [facility] documentation on this patient. I have reviewed the student's documentation and agree with the findings.
[2021-01-25] MEDS: SODIUM POLYSTYRENE SULFONONATE 15 GM/60 ML BTL 30 GM PO (15:40)
[2021-01-25 17:21] LABS: Glucose Point of Care 176 mg/dl (65-105)
--- NOTE | 2021-01-25 18:16 | WPDANESEPP ---
Anes - Eval Pre Procedure Procedure: Operation Date: 01/26/21 09:00 Proposed Procedures p Insertion Tunneled Dialysis Catheter - Devin Alfaro MD Date/Time: 01/25/21 18:16 Pre Op Diagnosis: Renal Failure Patient Data Age: 40 Gender: F Height: 1.6 m Weight: 111.8 kg Last Vital Signs Temp 97.7 F 01/25/21 16:00 Pulse 94 01/25/21 16:00 Resp 14 01/25/21 16:00 BP 162/72 H 01/25/21 16:00 Pulse Ox 100 01/25/21 16:00 Allergies Allergy/AdvReac Type Severity Reaction Status Date / Time metronidazole Allergy Intermediate Rash Verified 01/19/21 21:13 omeprazole Allergy Intermediate Rash Verified 01/19/21 21:13 Home Medications Medication Instructions Recorded Confirmed Type amlodipine 10 mg PO DAILY 30 Days #30 tablet 05/21/19 01/20/21 Rx lancets [OneTouch Delica Plus #1 pkg 03/02/20 01/20/21 Rx Lancet] pen needle, diabetic [BD #1 pkg 03/02/20 01/20/21 Rx Ultra-Fine Alyson Pen Needle] bisacodyl 5 mg PO ONCE PRN 01/20/21 01/20/21 History insulin glargine [Lantus Solostar 20 unit SUBCUT HS 01/20/21 01/20/21 History U-100 Insulin] insulin lispro 30 unit SUBCUT BID 01/20/21 01/20/21 History Laboratory Tests 01/24/21 01/25/21 01/25/21 20:19 05:01 05:01 WBC 11.4 K/mm3 H K/mm3 (4.5-10.0) RBC 2.77 M/mm3 L M/mm3 (4.2-5.4) Hgb 7.2 g/dL L g/dL (12.0-15.0) Hct 23.6 % L % (37.0-47.0) MCV 85.2 fl fl (80-100) MCH 26.0 pg pg (26-34) MCHC 30.5 g/dl L g/dl (32-36) RDW 16.0 % H % (11.5-14.5) Plt Count 293 k/mm3 k/mm3 (150-375) MPV 9.7 fl fl (7.4-10.4) Immature Gran % (Auto) 1.7 % H % (0-0.5) Neut % (Auto) 64.9 % % (45.5-73.1) Lymph % (Auto) 22.9 % % (18.3-44.2) King % (Auto) 7.5 % % (2.6-8.5) Eos % (Auto) 2.3 % % (0-4.4) Baso % (Auto) 0.7 % % (0.2-1.2) Lymph # (Auto) 2.61 K/mm3 K/mm3 (0.9-3.2) King # (Auto) 0.9 K/mm3 H K/mm3 (0.1-0.6) Eos # (Auto) 0.3 K/mm3 K/mm3 (0-0.3) Baso # (Auto) 0.1 K/mm3 K/mm3 (0.0-0.1) Abs Immat Gran (auto) 0.19 K/mm3 H K/mm3 (0.00-0.031) Absolute Neuts (auto) 7.4 K/mm3 H K/mm3 (1.3-6.7) Absolute Nucleated RBC 0.0 K/mm3 K/mm3 (0.0-0.012) Nucleated RBC % 0.4 % H % (0.0-0.2) Sodium 129 mmol/L L mmol/L (137-145) Potassium 5.1 mmol/L H mmol/L (3.4-5.0) Chloride 99 mmol/L mmol/L (98-107) Carbon Dioxide 19 mmol/L L mmol/L (22-30) Anion Gap 11 mmol/L mmol/L (8-16) BUN 69 mg/dL H D mg/dL (7-17) Creatinine 12.20 mg/dL H mg/dL (0.7-1.0) Estim Creat Clear Calc 7 ml/min ml/min Estimated GFR 3 L (59 - ) Glucose 166 mg/dL H mg/dL (65-110) POC Capillary Glucose 213 mg/dl H mg/dl (65-105) Calcium 6.2 mg/dL L mg/dL (8.4-10.2) Blood Type Antibody Screen 01/25/21 01/25/21 01/25/21 08:06 10:23 12:01 WBC RBC Hgb Hct MCV MCH MCHC RDW Plt Count MPV Immature Gran % (Auto) Neut % (Auto) Lymph % (Auto) King % (Auto) Eos % (Auto) Baso % (Auto) Lymph # (Auto) King # (Auto) Eos # (Auto) Baso # (Auto) Abs Immat Gran (auto) Absolute Neuts (auto) Absolute Nucleated RBC Nucleated RBC % Sodium Potassium Chloride Carbon Dioxide Anion Gap BUN Creatinine Estim Creat Clear Calc Estimated GFR Glucose POC Capillary Glucose 202 mg/dl H mg/dl 20
[2021-01-25 22:47] LABS: Glucose Point of Care 197 mg/dl (65-105)
[2021-01-26] VITALS (31 sets, daily range): BP systolic 127–211; BP diastolic 67–123; PULSE 88–103; RESP 14–22; TEMP 35.6–37.2; O2SAT 99–100
--- NOTE | 2021-01-26 07:42 | PM.PNGS ---
Progress Note: A&P Assessment and Plan (1) Hemodialysis catheter dysfunction: Code(s): T82.41XA - Breakdown (mechanical) of vascular dialysis catheter, initial encounter Status: Acute Assessment and Plan: Will revise or replace under anesthesia and using fluoroscopy today. (2) Chronic kidney disease, stage 5: Code(s): N18.5 - Chronic kidney disease, stage 5 Status: Acute (3) Morbid obesity: Code(s): E66.01 - Morbid (severe) obesity due to excess calories Status: Acute Subjective Subjective Date/Time Seen: 01/26/21 07:43 Objective Data Vital Signs Vital Signs: Vital Signs - 24 hr 01/25/21 07:48 01/25/21 08:00 01/25/21 09:40 Temperature 36.6 C 36.4 C Pulse Rate 95 101 H 93 Respiratory Rate 16 18 Blood Pressure 144/75 H 135/66 Pulse Oximetry 100 100 100 01/25/21 10:00 01/25/21 12:00 01/25/21 14:00 Temperature 36.9 C Pulse Rate 102 H 99 87 Respiratory Rate 18 Blood Pressure 137/60 Pulse Oximetry 100 01/25/21 16:00 01/25/21 18:00 01/25/21 20:00 Temperature 36.5 C Pulse Rate 92 90 93 Respiratory Rate 14 16 Blood Pressure 162/72 H Pulse Oximetry 100 100 01/25/21 20:50 01/25/21 22:00 01/26/21 00:00 Temperature 36.6 C 36.5 C Pulse Rate 93 98 96 Respiratory Rate 16 17 Blood Pressure 138/60 136/67 Pulse Oximetry 100 100 01/26/21 02:00 01/26/21 04:00 01/26/21 06:00 Temperature 36.7 C Pulse Rate 88 94 92 Respiratory Rate 17 Blood Pressure 140/68 Pulse Oximetry 100 Intake/Output Intake/Output: Intake & Output 01/23/21 01/24/21 01/25/21 01/26/21 23:59 23:59 23:59 23:59 Intake Total 1520 1270 1440 1350 Output Total 300 1086 1200 Balance 1220 651 584 0057 Meds/Results Medications: Active Medications Generic Name Dose Route Start Last Admin Trade Name Freq PRN Reason Stop Dose Admin Acetaminophen 650 mg 01/20/21 16:21 01/22/21 12:34 Acetaminophen 325 Mg Tablet PO 650 mg Q4H PRN Administration Mild Pain (1-3) or Fever Hydrocodone Bitart/Acetaminophen 1 tab 01/22/21 16:05 01/25/21 22:03 Hydrocodone/Acetaminophen (*Crx) 5-325 Mg Tablet PO 1 tab Q4H PRN Administration Pain Rated 4-6 Albuterol 2.5 mg 01/21/21 10:12 Albuterol Sulfate Neb 2.5 Mg/0.5 Ml Inh INHALATION Q6HRT PRN SOB or wheezing Alprazolam 0.25 mg 01/23/21 12:17 01/25/21 22:03 Alprazolam (*Crx) 0.25 Mg Tablet PO 0.25 mg BID PRN Administration Anxiety Alteplase, Recombinant 2 mg 01/24/21 14:34 01/24/21 17:12 Alteplase 2 Mg Vial (Cathflo) IV PUSH 2 mg ONCE PRN Administration Line Occlusion Alteplase, Recombinant 2 mg 01/24/21 14:37 01/24/21 17:13 Alteplase 2 Mg Vial (Cathflo) IV PUSH 2 mg ONCE PRN Administration Line Occlusion Amlodipine Besylate 10 mg 01/20/21 09:00 01/25/21 08:21 Amlodipine Besylate 5 Mg Tablet PO 10 mg DAILY CHAYO Administration Bisacodyl 5 mg 01/20/21 02:01 Bisacodyl 5 Mg Tablet Ec PO ONCE PRN Constipation Calcium Carbonate 200 mg 01/20/21 08:28 Calcium Carbonate (Tums) 500 Mg (200 Mg Elemental) PO Q6H PRN Indigestion Clonidine HCl 0.1 mg 01/20/21 12:05 Clonidine Hcl 0.1 Mg Tablet PO Q6H PRN hypertension systolic >180 Dextrose 12.5 gm 01/20/21 06:51 01/20/21 13:15 Dextrose 50% 25 Gm/50 Ml Syringe IV PUSH 12.5 gm PRN PRN Administration Hypoglycemia Protocol Epoetin Srinivas-epbx 10,000 units 01/24/21 17:00 01/24/21 10:25 Epoetin Srinivas-Epbx 10,000 Units/Ml Vial IV PUSH 10,000 units TuThSa@1700 CHAYO Administration Famotidine 20 mg 01/20/21 09:00 01/25/21 22:02 Famotidine 20 Mg Tablet PO 20 mg Q12HR CHAYO Administration Glucagon 1 mg 01/20/21 06:51 Glucagon For Inj 1 Mg Vial IM PRN PRN Hypoglycemia Protocol Glucose 15 gm 01/20/21 06:51 Glucose Oral Gel 15 Gm Of Glucse In 37.5 Gm Tube PO PRN PRN Hypoglyc
--- NOTE | 2021-01-26 07:44 | WPDHPUPDATE1 ---
History and Physical Update Update Date/Time: 01/26/21 07:44 History and Physical has been reviewed, including an updated exam of the patient. There are NO changes in the patient's condition. Risks, benefits, and alternatives have been discussed and questions answered. Patient agrees to proceed with procedure.
--- NOTE | 2021-01-26 07:45 | WPDANESEFPP ---
Anes - Eval Final PreProcedure Day of Procedure 01/26/21 07:45 Patient weight: morbidly obese Heart: regular rate and rhythm Lungs: clear to auscultation and normal air movement Airway: Mallampati scale class II Neurological: alert and oriented Last oral intake: >/= 8 hours ASA classification: IV Emergent: no Anesthetic plan: proceed Anesthesia type and monitoring: general GIVS Results Review: All pre-operative results and documents have been reviewed as part of the pre-operative evaluation. Informed Consent: The patient's anesthetic plan and its attendant risks and benefits were discussed with the patient/family/POA. Questions were solicited and answers provided to the satisfaction of the patient/family/POA.
[2021-01-26 07:52] LABS: Hematocrit 23.8 % (37.0-47.0); Hemoglobin 7.4 g/dL (12.0-15.0); Mean Corpuscular HGB Conc 31.1 g/dl (32-36); Mean Corpuscular Hemoglobin 25.8 pg (26-34); Mean Corpuscular Volume 82.9 fl (80-100); Mean Platelet Volume 9.6 fl (7.4-10.4); Platelet Count Result 303 k/mm3 (150-375); Red Blood Count 2.87 M/mm3 (4.2-5.4); Red Cell Distribution Width 15.9 % (11.5-14.5); White Blood Count 11.4 K/mm3 (4.5-10.0)
[2021-01-26 08:04] LABS: Albumin Level 3.5 g/dL (3.5-5.1); Anion Gap 11 mmol/L (8-16); Blood Urea Nitrogen 70 mg/dL (7-17); Calcium 6.1 mg/dL (8.4-10.2); Carbon Dioxide 21 mmol/L (22-30); Chloride 99 mmol/L (98-107); Estimated CRCL calculation 6 ml/min; Estimated Glomerular Filt Rate 3; Glucose 136 mg/dL (65-110); Phosphorus 8.8 mg/dL (2.5-4.5); Potassium 5.2 mmol/L (3.4-5.0); Sodium 131 mmol/L (137-145)
[2021-01-26] MEDS: HYDROcodone/acetaminophen (*CRX) 5-325 MG TABLET 1 TAB PO ×4 (08:51→21:51)
[2021-01-26] MEDS: ceFAZolin 2 GM/D5W 50 ML 2 GM/50 ML BAG IVPB (09:20)
[2021-01-26 09:23] LABS: Glucose Point of Care 127 mg/dl (65-105)
[2021-01-26] MEDS: LIDO 1%/EPINEPHRINE/PF 1:200,000 30 ML VIAL INFILTRATE (10:01)
[2021-01-26] MEDS: HEPARIN SODIUM, PORCINE 10,000 UNITS/10 ML VIAL 10000 UNITS IRRIGATION (10:02)
[2021-01-26] MEDS: HEPARIN SODIUM 5,000 UNITS/ML VIAL 5000 UNITS IRRIGATION (10:15)
--- NOTE | 2021-01-26 10:31 | W.PM.PROC2 ---
Procedure Note - Detailed Date of Procedure 01/26/21 Pre-op Diagnosis End-stage renal disease, hemodialysis catheter dysfunction Post-op Diagnosis same Procedure Performed Replacement right IJ tunneled dura flow central venous catheter for dialysis under fluoroscopy Surgeon Devin Alfaro MD Pattern Generator Operator Shorty VERGARA Anesthesia general (G IV S) and local (0.5% Marcaine) Indications Patient is a 40-year-old woman with end-stage renal disease. She had a right IJ tunneled dialysis catheter placed but flows have not been adequate. She is taken to surgery to have revision or replacement. Findings Previous catheter seemed to have not had the length to reach into the SVC right atrial junction. It was removed and a new catheter placed that was 32 cm length. Description of Procedure Patient was taken to surgery and placed in a supine position. The head was turned slightly to the left. Stop the dressing to the current catheter was removed and the sutures were removed. The right neck and right upper chest including the previous dura flow catheter were completely prepped and draped. The surgical adhesive to the neck incisions was removed before prepping and draping. The catheter was palpable in the midportion of the right neck. Local was infiltrated in a transverse orientation over this area. Incision was made and dissection was carried down to the catheter. This was very close to the entry of the catheter into the internal jugular vein. The incision was extended a bit more medially and we had access to literally the entire curved area of the previous catheter placement. Catheter was dissected up out of the wound. Catheter was divided. A guidewire was passed through the into the catheter leading to the vena cava. C-arm fluoroscopy was used and the guidewire was in the distal SVC and right ventricle. We then removed the existing catheter both removing the port end as well as the end that was over the guidewire. Guidewire was left in place. Pressure was held over the neck until hemostasis was good. A 32 cm catheter was then brought into the field. Using C-arm fluoroscopy, I measured the general path of the catheter as it would track through the neck and end in the right atrium SVC junction. Counter incisions on the right neck were marked that would not include the previous incisions. Local anesthetic was infiltrated into each of the counter incisions. Incisions were then made. The catheter was then tunneled retrograde from the right upper chest through each counter incision and then out the incision in which the guidewire was protruding. Under fluoroscopy, we then passed serial dilators including the introducer and sleeve over the guidewire. We then removed the introducer and guidewire and passed the dura flow catheter tip through the sleeve and into the distal SVC. Some care was taken to ensure the curve of the catheter in the neck was not at all kinked. Both ports were then checked. They aspirated blood well and flushed easily with heparin. Final flush was administered through each port. C-arm fluoroscopy showed the catheter to be in good position with the tip in the right atrium or distal SVC. No kinks were noted in the path of the catheter. The counter incisions were then closed with subcutaneous interrupted 4 0 Vicryl. Subcuticular interrupted 4 0 Vicryl skin stitches were placed. 4-0 nylon skin stitches were placed to secure the catheter to the skin. Exofin surgical adhesive was placed over each of the counter incisions. The exit wound was dressed with a sterile transparent bandage. The previous exit site was dressed with a Band-Aid. Patient was awakened and taken to recovery in good condition. Sponge needle counts were correct x2. Estimated Blood Loss -5 Urine Output 350 Drains No Packing No Pathology none sent Complications No immediate complications Condition stable Disposition PACU
--- NOTE | 2021-01-26 10:51 | SUR.PHASEI ---
PT IS C/O LEFT CHEST PAIN LANNY JOEL IS GIVING PT IV FENTANYL RIGHT NOW FOR PAIN.
[2021-01-26 10:53] LABS: Glucose Point of Care 124 mg/dl (65-105)
[2021-01-26] MEDS: fentaNYL CITRATE INJ (*CRX) 100 MCG/2 ML VIAL 25 MCG IV PUSH (10:55)
--- NOTE | 2021-01-26 11:03 | SUR.PHASEI ---
THIS NURSE FAXED THE SBAR AND IS WAITING FOR THE NURSE TO CALL BACK FOR REPORT.
--- NOTE | 2021-01-26 11:37 | SUR.PHASEI ---
THIS NURSE CALLED FOR REPORT AND NURSE SALVADOR TOOK REPORT AND IS SENDING SOMEONE TO COME PICK THE PATIENT UP
[2021-01-26] MEDS: hydrALAZINE HCL 25 MG TABLET PO ×3 (12:03→21:26)
[2021-01-26] MEDS: amLODIPine BESYLATE 5 MG TABLET 10 MG PO (12:03)
[2021-01-26] MEDS: FAMOTIDINE 20 MG TABLET PO ×2 (12:03→21:26)
[2021-01-26] MEDS: IRON SUCROSE COMPLEX 200 MG in SODIUM CHLORIDE 0.9% IV 50 ML 120 MG IVPB (12:04)
[2021-01-26] MEDS: ACETAMINOPHEN 325 MG TABLET 650 MG PO (12:06)
[2021-01-26] MEDS: ALPRAZolam (*CRX) 0.25 MG TABLET PO ×2 (13:10→21:49)
[2021-01-26 13:35] LABS: Glucose Point of Care 141 mg/dl (65-105)
[2021-01-26] MEDS: HYDROmorphone HCL INJ (*CRX) 1 MG/ML SYR 0.5 MG IV PUSH (13:40)
[2021-01-26] MEDS: diphenhydrAMINE HCl CAP 25 MG CAPSULE 50 MG PO (13:40)
--- NOTE | 2021-01-26 14:37 | PM.PNNEP ---
Progress Note: A&P Assessment and Plan (1) End stage renal disease: Code(s): N18.6 - End stage renal disease Status: Chronic Assessment and Plan: due progression of disease from her HTN and DM s/p new tunneled HD catheter today (previous HD catheter had not been working well since placement) HD today follow trend of electrolytes, volume status, and clearance plan next HD treatment on Thursday ultimately, patient would like eventually transition to peritoneal dialysis (2) Chest pain: Qualifiers: Chest pain type: unspecified Qualified Code(s): R07.9 - Chest pain, unspecified Code(s): R07.9 - Chest pain, unspecified Status: Acute Assessment and Plan: noted during this hospital stay Lexiscan is negative (3) HTN (hypertension): Qualifiers: Hypertension type: unspecified Qualified Code(s): I10 - Essential (primary) hypertension Code(s): I10 - Essential (primary) hypertension Status: Chronic Assessment and Plan: BP continues to fluctuate but better overall may improve further with ongoing dialysis treatments currently on on amlodipine, lisinopril, and hydralazine along with p.r.n. clonidine consider changing amlodipine to nifedipine XL follow trend of hemodynamics (4) Anemia: Code(s): D64.9 - Anemia, unspecified Status: Chronic Assessment and Plan: likely due to ESRD iron studies with some evidence of iron deficiency would try to avoid PRBC transfusion since she is a potential candidate for kidney transplantation Epogen and venofer with HD follow trend of H/H (5) Diabetes: Code(s): E11.9 - Type 2 diabetes mellitus without complications Status: Chronic Assessment and Plan: follow accuchecks on SSI Will continue to follow. Subjective Date/time seen: 01/26/21 14:37 Chart reviewed; patient tolerating dialysis treatment at the time of my visit (seen on HD at ~ 2:30PM); s/p replacement of tunneled HD catheter earlier today and tolerated this procedure as well; still has some pain/soreness from previous HD catheter insertion site; no events/issues overnight or earlier this AM. Exam Narrative: General: WD/WN AA female in NAD Heart: normal S1 and S2; no rub Lungs: clear to auscultation Abdomen: soft, nontender, nondistended, positive bowel sounds Extremities: no cyanosis or clubbing; trace edema Skin: warm and dry Objective Data Vital Signs Vital Signs: Vital Signs Temp Pulse Resp BP Pulse Ox 01/26/21 14:30 95 176/93 H 01/26/21 14:15 97 188/93 H 01/26/21 14:00 97 174/94 H 01/26/21 13:45 100 207/104 H 01/26/21 13:30 97 211/80 H 01/26/21 13:13 100 211/90 H 01/26/21 13:00 36.6 C 103 H 22 H 179/82 H 01/26/21 12:00 37.2 C 96 16 159/75 H 100 01/26/21 11:45 94 14 166/70 H 100 01/26/21 11:30 90 14 162/79 H 100 01/26/21 11:15 90 14 162/83 H 100 01/26/21 11:00 91 14 155/79 H 100 01/26/21 10:46 99 17 161/86 H 100 01/26/21 10:31 37.1 C 100 14 148/79 H 100 01/26/21 09:10 98 18 164/80 H 99 01/26/21 08:00 36.4 C L 96 14 161/83 H 100 01/26/21 06:00 92 01/26/21 04:00 36.7 C 94 17 140/68 100 01/26/21 02:00 88 01/26/21 00:00 36.5 C 96 17 136/67 100 01/25/21 22:00 98 01/25/21 20:50 36.6 C 93 16 138/60 100 01/25/21 20:00 93 16 100 01/25/21 18:00 90 01/25/21 16:00 36.5 C 92 14 162/72 H 100 Intake/Output Intake/Output: Intake & Output 01/23/21 01/24/21 01/25/21 01/26/21 23:59 23:59 23:59 23:59 Intake Total 1520 1270 1440 1400 Output Total 300 1086 1200 350 Balance 1220 963 531 0651 Meds/Results Medications: Active Medications Generic Name Dose Route Start Last Admin Trade Name Freq PRN Reason Stop Dose Admin Acetaminophen 650 mg 01/20/21 16:21 01/26/21 12:06 Acetaminophen 325 Mg Tablet PO 650 mg Q4H PRN
--- NOTE | 2021-01-26 14:37 | P.PNNP_ITS ---
Progress Note: A&P Assessment and Plan (1) End stage renal disease: Code(s): N18.6 - End stage renal disease Status: Chronic Assessment and Plan: * due progression of disease from her HTN and DM * s/p new tunneled HD catheter today (previous HD catheter had not been working well since placement) * HD today * follow trend of electrolytes, volume status, and clearance * plan next HD treatment on Thursday * ultimately, patient would like eventually transition to peritoneal dialysis (2) Chest pain: Qualifiers: Chest pain type: unspecified Qualified Code(s): R07.9 - Chest pain, unspecified Code(s): R07.9 - Chest pain, unspecified Status: Acute Assessment and Plan: * noted during this hospital stay * Lexiscan is negative (3) HTN (hypertension): Qualifiers: Hypertension type: unspecified Qualified Code(s): I10 - Essential (primary) hypertension Code(s): I10 - Essential (primary) hypertension Status: Chronic Assessment and Plan: * BP continues to fluctuate but better overall * may improve further with ongoing dialysis treatments * currently on on amlodipine, lisinopril, and hydralazine along with p.r.n. clonidine * consider changing amlodipine to nifedipine XL * follow trend of hemodynamics (4) Anemia: Code(s): D64.9 - Anemia, unspecified Status: Chronic Assessment and Plan: * likely due to ESRD * iron studies with some evidence of iron deficiency * would try to avoid PRBC transfusion since she is a potential candidate for kidney transplantation * Epogen and venofer with HD * follow trend of H/H (5) Diabetes: Code(s): E11.9 - Type 2 diabetes mellitus without complications Status: Chronic Assessment and Plan: * follow accuchecks * on SSI Will continue to follow. Subjective Date/time seen: 01/26/21 14:37 Chart reviewed; patient tolerating dialysis treatment at the time of my visit (seen on HD at ~ 2:30PM); s/p replacement of tunneled HD catheter earlier today and tolerated this procedure as well; still has some pain/soreness from previous HD catheter insertion site; no events/issues overnight or earlier this AM. Exam Narrative: General: WD/WN AA female in NAD Heart: normal S1 and S2; no rub Lungs: clear to auscultation Abdomen: soft, nontender, nondistended, positive bowel sounds Extremities: no cyanosis or clubbing; trace edema Skin: warm and dry Objective Data Vital Signs Vital Signs: Vital Signs Temp Pulse Resp BP Pulse Ox 01/26/21 14:30 95 176/93 H 01/26/21 14:15 97 188/93 H 01/26/21 14:00 97 174/94 H 01/26/21 13:45 100 207/104 H 01/26/21 13:30 97 211/80 H 01/26/21 13:13 100 211/90 H 01/26/21 13:00 36.6 C 103 H 22 H 179/82 H 01/26/21 12:00 37.2 C 96 16 159/75 H 100 01/26/21 11:45 94 14 166/70 H 100 01/26/21 11:30 90 14 162/79 H 100 01/26/21 11:15 90 14 162/83 H 100 01/26/21 11:00 91 14 155/79 H 100 01/26/21 10:46 99 17 161/86 H 100 01/26/21 10:31 37.1 C 100 14 148/79 H 100 01/26/21 09:10 98 18 164/80 H 99 01/26/21 08:00 36.4 C L 96 14 161/83 H 100 01/26/21 06:00 92 01/26/21 04:00 36.7 C 94 17 140/68 100 01/26/21 02:00 88
--- NOTE | 2021-01-26 15:49 | PM.IMPN ---
Progress Note: A&P Assessment and Plan (1) Acute renal failure: Code(s): N17.9 - Acute kidney failure, unspecified Status: Acute Assessment and Plan: Acute on chronic renal failure who presents with a creatinine of 14, BUN 96. Likely secondary to uncontrolled hypertension, diabetes Renal ultrasound showed Right renal cyst measuring 1.6 cm. Otherwise, unremarkable renal ultrasound. General Surgery placed Temporary Dialysis catheter Have been attempting dialysis but catheter was not functioning properly, general surgery placed a new one today When I saw her today she was in dialysis and tolerating it well, catheter seems to be working well Nephrology following, appreciate their recommendations (2) Malignant hypertensive urgency: Code(s): I16.0 - Hypertensive urgency Status: Acute Assessment and Plan: Patient's blood pressures were 200/100 on admission. She does not check her blood pressure at home. She just got insurance and does not have a regular PCP to follow up with get. She has seen Dr. Fernandez nephrology but the last time was 6 months ago. Continue amlodipine 10 mg, PO hydralazine 10 mg QID, and Clonidine 0.1 mg for blood pressure greater than 180 systolic per nephrology Seems to be improving slowly, was trending high yesterday and today but suspect this will improve after full dialysis treatment today Continue monitoring. Make adjustments as needed. (3) Anemia in chronic kidney disease: Code(s): N18.9 - Chronic kidney disease, unspecified; D63.1 - Anemia in chronic kidney disease Status: Acute Assessment and Plan: Normocytic anemia. Likely secondary to acute on chronic kidney failure Iron panel showed slight iron deficiency. Vitamin B12, folic acid, TSH are normal Nephrology has started iron infusion H&H low but Stable, did dip down to 6.5, nephrology did Epo injection Nephrology following, appreciate their input. Trying to avoid transfusions at this time in the event of possible kidney transplant in the future. (4) Atypical chest pain: Code(s): R07.89 - Other chest pain Status: Acute Assessment and Plan: Negative troponin x2 Chest x-ray shows No acute cardiopulmonary abnormality. EKG shows normal sinus rhythm with rate 85 beats per minute, with possible anterior ID Telemetry shows normal sinus rhythm at 103 beats per minute, no acute arrhythmia on tele Echocardiogram with trace mitral valve regurgitation, otherwise unremarkable w/ EF of 60-65% Negative Karen scan today. Cardiology following, suspect chest pain is caused by adjustment to dialysis and musculoskeletal discomfort. Could also be some anxiety component as patient admits to being very anxious about dialysis. Resolved at this time (5) Hypoglycemia: Code(s): E16.2 - Hypoglycemia, unspecified Status: Acute Assessment and Plan: 01/20/21: I was reviewing the patient's labs and noticed that her glucose went from 248 to 81. I could not find how much insulin she had received so I called the nurse who told me she received NovoLog 30 units which was what she takes at home and that she was hypoglycemic at 40 earlier this morning at 10:50 and she received the hypoglycemic protocol but did not call to inform me of this. I called the patient and asked her when the last time she took her insulin was, she tells me she has not taken her insulin ?in a long time?. Review of medical record shows she had insulin prescribed February 2020 but was never refilled. Her hemoglobin A1c is 6.1% which is well controlled. Due to the patient's acute renal failure this will most likely hold on to the NovoLog insulin longer than expected. I talked to Dr. Stacy and the pharmacist about starting a dextrose
[2021-01-26 16:59] LABS: Glucose Point of Care 233 mg/dl (65-105)
[2021-01-26] MEDS: INSULIN ASPART (*BKC) 100 UNITS/ML SUB-Q (17:43)
[2021-01-26 21:18] LABS: Glucose Point of Care 217 mg/dl (65-105)
[2021-01-27] VITALS (13 sets, daily range): BP systolic 152–184; BP diastolic 58–83; PULSE 86–100; RESP 14–18; TEMP 36.1–36.8; O2SAT 97–100
[2021-01-27] MEDS: HYDROmorphone HCL INJ (*CRX) 1 MG/ML SYR 0.5 MG IV PUSH (00:26)
[2021-01-27] MEDS: LIDOCAINE 5% PATCH 1 PATCH TRANSDERM (00:28)
[2021-01-27] MEDS: HYDROcodone/acetaminophen (*CRX) 7.5-325 MG TABLET 1 TAB PO (04:22)
[2021-01-27 07:10] LABS: Basophils Absolute Auto 0.1 K/mm3 (0.0-0.1); Basophils Percent Auto 0.6 % (0.2-1.2); Eosinophils Absolute Auto 0.3 K/mm3 (0-0.3); Hematocrit 24.2 % (37.0-47.0); Hemoglobin 7.3 g/dL (12.0-15.0); Immature Granulocyte Percent A 1.1 % (0-0.5); Lymphocytes Absolute Auto 1.76 K/mm3 (0.9-3.2); Lymphocytes Percent Auto 18.7 % (18.3-44.2); Mean Corpuscular HGB Conc 30.2 g/dl (32-36); Mean Corpuscular Hemoglobin 25.3 pg (26-34); Mean Platelet Volume 9.4 fl (7.4-10.4); Monocytes Absolute Auto 0.9 K/mm3 (0.1-0.6); Monocytes Percent Auto 9.1 % (2.6-8.5); Neutrophils Absolute Auto 6.3 K/mm3 (1.3-6.7); Neutrophils Percent Auto 67.5 % (45.5-73.1); Platelet Count Result 287 k/mm3 (150-375); Red Blood Count 2.88 M/mm3 (4.2-5.4); Red Cell Distribution Width 16.4 % (11.5-14.5); White Blood Count 9.4 K/mm3 (4.5-10.0)
[2021-01-27 07:23] LABS: Anion Gap 10 mmol/L (8-16); Blood Urea Nitrogen 46 mg/dL (7-17); Calcium 6.7 mg/dL (8.4-10.2); Carbon Dioxide 25 mmol/L (22-30); Chloride 100 mmol/L (98-107); Estimated CRCL calculation 8 ml/min; Estimated Glomerular Filt Rate 4; Glucose 168 mg/dL (65-110); Potassium 4.7 mmol/L (3.4-5.0); Sodium 135 mmol/L (137-145)
--- NOTE | 2021-01-27 07:30 | WPDANESPN ---
Anes - Prog Note Post-Op Date/Time: 01/27/21 07:30 Cardiovascular status: normal Respiratory status: normal Airway patency: baseline Mental status: baseline Post-Op hydration status: normal Vital Signs: Last Vital Signs Temp 36.7 C 01/27/21 04:20 Pulse 86 01/27/21 05:33 Resp 18 01/27/21 04:20 BP 159/78 H 01/27/21 04:20 Pulse Ox 98 01/27/21 04:20 Pain Score (VAS): 2 I/O: Intake & Output 01/26/21 01/26/21 01/27/21 15:59 23:59 07:59 Intake Total 110 480 350 Output Total 1350 875 700 Balance -1240 -395 -350 Laboratory Tests 01/27/21 05:52 01/27/21 05:52 01/26/21 01/26/21 01/26/21 07:19 07:19 07:49 WBC 11.4 H RBC 2.87 L Hgb 7.4 L Hct 23.8 L MCV 82.9 MCH 25.8 L MCHC 31.1 L RDW 15.9 H Plt Count 303 MPV 9.6 Immature Gran % (Auto) Neut % (Auto) Lymph % (Auto) Hickman % (Auto) Eos % (Auto) Baso % (Auto) Lymph # (Auto) Hickman # (Auto) Eos # (Auto) Baso # (Auto) Abs Immat Gran (auto) Absolute Neuts (auto) Absolute Nucleated RBC Nucleated RBC % Sodium 131 L Potassium 5.2 H Chloride 99 Carbon Dioxide 21 L Anion Gap 11 BUN 70 H Creatinine 13.40 H Estim Creat Clear Calc 6 Estimated GFR 3 L Glucose 136 H POC Capillary Glucose 127 H Calcium 6.1 L Phosphorus 8.8 H Albumin 3.5 01/26/21 01/26/21 01/26/21 10:46 12:21 16:55 WBC RBC Hgb Hct MCV MCH MCHC RDW Plt Count MPV Immature Gran % (Auto) Neut % (Auto) Lymph % (Auto) Hickman % (Auto) Eos % (Auto) Baso % (Auto) Lymph # (Auto) Hickman # (Auto) Eos # (Auto) Baso # (Auto) Abs Immat Gran (auto) Absolute Neuts (auto) Absolute Nucleated RBC Nucleated RBC % Sodium Potassium Chloride Carbon Dioxide Anion Gap BUN Creatinine Estim Creat Clear Calc Estimated GFR Glucose POC Capillary Glucose 124 H 141 H 233 H Calcium Phosphorus Albumin 01/26/21 01/27/21 01/27/21 20:20 05:52 05:52 WBC 9.4 RBC 2.88 L Hgb 7.3 L Hct 24.2 L MCV 84.0 MCH 25.3 L MCHC 30.2 L RDW 16.4 H Plt Count 287 MPV 9.4 Immature Gran % (Auto) 1.1 H Neut % (Auto) 67.5 Lymph % (Auto) 18.7 Hickman % (Auto) 9.1 H Eos % (Auto) 3.0 Baso % (Auto) 0.6 Lymph # (Auto) 1.76 Hickman # (Auto) 0.9 H Eos # (Auto) 0.3 Baso # (Auto) 0.1 Abs Immat Gran (auto) 0.10 H Absolute Neuts (auto) 6.3 Absolute Nucleated RBC 0.0 Nucleated RBC % 0.0 Sodium 135 L Potassium 4.7 Chloride 100 Carbon Dioxide 25 Anion Gap 10 BUN 46 H D Creatinine 10.80 H Estim Creat Clear Calc 8 Estimated GFR 4 L Glucose 168 H POC Capillary Glucose 217 H Calcium 6.7 L Phosphorus Albumin Post-procedural complaints: none Patient Feedback: Patient satisfied with anesthetic care.
--- NOTE | 2021-01-27 09:21 | PM.IMPN ---
Progress Note: A&P Assessment and Plan (1) Acute renal failure: Code(s): N17.9 - Acute kidney failure, unspecified Status: Acute Assessment and Plan: Acute on chronic renal failure who presents with a creatinine of 14, BUN 96. Likely secondary to uncontrolled hypertension, diabetes Renal ultrasound showed Right renal cyst measuring 1.6 cm. Otherwise, unremarkable renal ultrasound. General Surgery placed Temporary Dialysis catheter Have been attempting dialysis but catheter was not functioning properly, general surgery placed a new one She had a 2 hour dialysis treatment yesterday and her labs today show a BUN of 46, creat of 10.8, and potassium of 4.7. Nephrology following, appreciate their recommendations. I know they are working on setting up outpatient treatment. (2) Malignant hypertensive urgency: Code(s): I16.0 - Hypertensive urgency Status: Acute Assessment and Plan: Patient's blood pressures were 200/100 on admission. She does not check her blood pressure at home. She just got insurance and does not have a regular PCP to follow up with get. She has seen Dr. Fernandez nephrology but the last time was 6 months ago. Continue amlodipine 10 mg, PO hydralazine 10 mg QID, and Clonidine 0.1 mg for blood pressure greater than 180 systolic per nephrology Seems to be improving slowly, was trending high yesterday but seems to be improving again since receiving dialysis yesterday Continue monitoring. Make adjustments as needed. (3) Anemia in chronic kidney disease: Code(s): N18.9 - Chronic kidney disease, unspecified; D63.1 - Anemia in chronic kidney disease Status: Acute Assessment and Plan: Normocytic anemia. Likely secondary to acute on chronic kidney failure Iron panel showed slight iron deficiency. Vitamin B12, folic acid, TSH are normal Nephrology has started iron infusion H&H low but Stable, did dip down to 6.5, nephrology did Epo injection Nephrology following, appreciate their input. Trying to avoid transfusions at this time in the event of possible kidney transplant in the future. (4) Atypical chest pain: Code(s): R07.89 - Other chest pain Status: Acute Assessment and Plan: Negative troponin x2 Chest x-ray shows No acute cardiopulmonary abnormality. EKG shows normal sinus rhythm with rate 85 beats per minute, with possible anterior PA Telemetry shows normal sinus rhythm at 103 beats per minute, no acute arrhythmia on tele Echocardiogram with trace mitral valve regurgitation, otherwise unremarkable w/ EF of 60-65% Negative Karen scan today. Cardiology following, suspect chest pain is caused by adjustment to dialysis and musculoskeletal discomfort. Could also be some anxiety component as patient admits to being very anxious about dialysis. Resolved at this time (5) Hypoglycemia: Code(s): E16.2 - Hypoglycemia, unspecified Status: Acute Assessment and Plan: 01/20/21: I was reviewing the patient's labs and noticed that her glucose went from 248 to 81. I could not find how much insulin she had received so I called the nurse who told me she received NovoLog 30 units which was what she takes at home and that she was hypoglycemic at 40 earlier this morning at 10:50 and she received the hypoglycemic protocol but did not call to inform me of this. I called the patient and asked her when the last time she took her insulin was, she tells me she has not taken her insulin ?in a long time?. Review of medical record shows she had insulin prescribed February 2020 but was never refilled. Her hemoglobin A1c is 6.1% which is well controlled. Due to the patient's acute renal failure this will most likely hold on to the NovoLog insulin longer than expected.
[2021-01-27] MEDS: amLODIPine BESYLATE 5 MG TABLET 10 MG PO (09:33)
[2021-01-27] MEDS: FAMOTIDINE 20 MG TABLET PO ×2 (09:34→20:01)
[2021-01-27] MEDS: hydrALAZINE HCL 25 MG TABLET PO ×4 (09:34→20:01)
[2021-01-27] MEDS: DOCUSATE SODIUM 100 MG CAPSULE PO ×2 (09:34→20:01)
[2021-01-27] MEDS: oxyCODONE/ACETAMINOPHEN (*CRX) 5-325 MG TABLET 1 TABLET PO ×3 (09:34→20:01)
[2021-01-27 09:50] LABS: Glucose Point of Care 136 mg/dl (65-105)
--- NOTE | 2021-01-27 11:49 | PM.PNNEP ---
Progress Note: A&P Assessment and Plan (1) End stage renal disease: Code(s): N18.6 - End stage renal disease Status: Chronic Assessment and Plan: due progression of disease from her HTN and DM s/p new tunneled HD catheter on 01/26/21 (previous HD catheter had not been working well since placement) HD yesterday and plan next HD treatment tomorrow follow trend of electrolytes, volume status, and clearance ultimately, patient would like eventually transition to peritoneal dialysis (2) Chest pain: Qualifiers: Chest pain type: unspecified Qualified Code(s): R07.9 - Chest pain, unspecified Code(s): R07.9 - Chest pain, unspecified Status: Acute Assessment and Plan: noted during this hospital stay Lexiscan is negative (3) HTN (hypertension): Qualifiers: Hypertension type: unspecified Qualified Code(s): I10 - Essential (primary) hypertension Code(s): I10 - Essential (primary) hypertension Status: Chronic Assessment and Plan: BP continues to fluctuate but better overall may improve further with ongoing dialysis treatments currently on on amlodipine, lisinopril, and hydralazine along with p.r.n. clonidine consider changing amlodipine to nifedipine XL follow trend of hemodynamics (4) Anemia: Code(s): D64.9 - Anemia, unspecified Status: Chronic Assessment and Plan: likely due to ESRD iron studies with some evidence of iron deficiency would try to avoid PRBC transfusion since she is a potential candidate for kidney transplantation Epogen and venofer with HD follow trend of H/H (5) Diabetes: Code(s): E11.9 - Type 2 diabetes mellitus without complications Status: Chronic Assessment and Plan: follow accuchecks on SSI Will continue to follow. Subjective Date/time seen: 01/27/21 11:49 Tolerated first real (previous treatments were suboptimal due to HD catheter malfunction) dialysis treatment yesterday without any issue or problems; some soreness in right chest/neck with HD catheter placement (worse last night but better today) but ice packs seem to help; no issues/events overnight or earlier this morning; no other acute complaints voiced. Exam Narrative: General: WD/WN AA female in NAD Heart: normal S1 and S2; no rub Lungs: clear to auscultation Abdomen: soft, nontender, nondistended, positive bowel sounds Extremities: no cyanosis or clubbing; trace edema Skin: warm and intact Objective Data Vital Signs Vital Signs: Vital Signs Temp Pulse Resp BP Pulse Ox 01/27/21 10:00 94 01/27/21 08:00 36.4 C 89 18 160/83 H 99 01/27/21 05:33 86 01/27/21 04:20 36.7 C 90 18 159/78 H 98 01/27/21 04:00 91 18 98 01/27/21 02:00 90 01/27/21 00:00 100 18 100 01/26/21 23:30 36.6 C 100 18 143/123 H 100 01/26/21 22:00 93 01/26/21 20:00 36.6 C 90 17 127/72 99 01/26/21 18:00 97 01/26/21 16:00 37.2 C 95 16 153/72 H 100 01/26/21 15:50 36.7 C 97 16 210/97 H 01/26/21 15:44 93 200/103 H 01/26/21 15:30 101 H 174/91 H 01/26/21 15:15 96 200/88 H 01/26/21 15:00 97 194/88 H Intake/Output Intake/Output: Intake & Output 01/24/21 01/25/21 01/26/21 01/27/21 23:59 23:59 23:59 23:59 Intake Total 1270 1440 1940 1070 Output Total 1086 1200 2225 1075 Balance 184 240 -285 -5 Meds/Results Medications: Active Medications Generic Name Dose Route Start Last Admin Trade Name Lorenzoq PRN Reason Stop Dose Admin Acetaminophen 650 mg 01/20/21 16:21 01/26/21 12:06 Acetaminophen 325 Mg Tablet PO 650 mg Q4H PRN Administration Mild Pain (1-3) or Fever Albuterol 2.5 mg 01/21/21 10:12 Albuterol Sulfate Neb 2.5 Mg/0.5 Ml Inh INHALATION Q6HRT PRN SOB or wheezing Alprazolam 0.25 mg 01/23/21 12:17 01/26/21 21:49 Alprazolam (*Crx) 0.25 Mg Tablet PO 0.25 mg BID PRN A
--- NOTE | 2021-01-27 11:49 | P.PNNP_ITS ---
Progress Note: A&P Assessment and Plan (1) End stage renal disease: Code(s): N18.6 - End stage renal disease Status: Chronic Assessment and Plan: * due progression of disease from her HTN and DM * s/p new tunneled HD catheter on 01/26/21 (previous HD catheter had not been working well since placement) * HD yesterday and plan next HD treatment tomorrow * follow trend of electrolytes, volume status, and clearance * ultimately, patient would like eventually transition to peritoneal dialysis (2) Chest pain: Qualifiers: Chest pain type: unspecified Qualified Code(s): R07.9 - Chest pain, unspecified Code(s): R07.9 - Chest pain, unspecified Status: Acute Assessment and Plan: * noted during this hospital stay * Lexiscan is negative (3) HTN (hypertension): Qualifiers: Hypertension type: unspecified Qualified Code(s): I10 - Essential (primary) hypertension Code(s): I10 - Essential (primary) hypertension Status: Chronic Assessment and Plan: * BP continues to fluctuate but better overall * may improve further with ongoing dialysis treatments * currently on on amlodipine, lisinopril, and hydralazine along with p.r.n. clonidine * consider changing amlodipine to nifedipine XL * follow trend of hemodynamics (4) Anemia: Code(s): D64.9 - Anemia, unspecified Status: Chronic Assessment and Plan: * likely due to ESRD * iron studies with some evidence of iron deficiency * would try to avoid PRBC transfusion since she is a potential candidate for kidney transplantation * Epogen and venofer with HD * follow trend of H/H (5) Diabetes: Code(s): E11.9 - Type 2 diabetes mellitus without complications Status: Chronic Assessment and Plan: * follow accuchecks * on SSI Will continue to follow. Subjective Date/time seen: 01/27/21 11:49 Tolerated first real (previous treatments were suboptimal due to HD catheter malfunction) dialysis treatment yesterday without any issue or problems; some soreness in right chest/neck with HD catheter placement (worse last night but better today) but ice packs seem to help; no issues/events overnight or earlier this morning; no other acute complaints voiced. Exam Narrative: General: WD/WN AA female in NAD Heart: normal S1 and S2; no rub Lungs: clear to auscultation Abdomen: soft, nontender, nondistended, positive bowel sounds Extremities: no cyanosis or clubbing; trace edema Skin: warm and intact Objective Data Vital Signs Vital Signs: Vital Signs Temp Pulse Resp BP Pulse Ox 01/27/21 10:00 94 01/27/21 08:00 36.4 C 89 18 160/83 H 99 01/27/21 05:33 86 01/27/21 04:20 36.7 C 90 18 159/78 H 98 01/27/21 04:00 91 18 98 01/27/21 02:00 90 01/27/21 00:00 100 18 100 01/26/21 23:30 36.6 C 100 18 143/123 H 100 01/26/21 22:00 93 01/26/21 20:00 36.6 C 90 17 127/72 99 01/26/21 18:00 97 01/26/21 16:00 37.2 C 95 16 153/72 H 100 01/26/21 15:50 36.7 C 97 16 210/97 H 01/26/21 15:44 93 200/103 H 01/26/21 15:30 101 H 174/91 H 01/26/21 15:15 96 200/88 H 01/26/21 15:00 97 194/88 H Intake/Output Intake/Output: Intake & Output
[2021-01-27 13:18] LABS: Glucose Point of Care 200 mg/dl (65-105)
--- NOTE | 2021-01-27 16:09 | PC.NURSE ---
This patient, Bakari Smith, was transferred to [ [facility]] on 01/27/21 at 1600. Personal belongings sent with patient. Report given to [Eli ]. Appropriate documentation sent with patient.
[2021-01-27 16:35] LABS: Glucose Point of Care 294 mg/dl (65-105)
[2021-01-27] MEDS: INSULIN ASPART (*BKC) 100 UNITS/ML SUB-Q (16:45)
[2021-01-27 20:25] LABS: Glucose Point of Care 222 mg/dl (65-105)
[2021-01-27] MEDS: cloNIDine HCL 0.1 MG TABLET PO (21:20)
[2021-01-28] VITALS (19 sets, daily range): BP systolic 140–196; BP diastolic 59–100; PULSE 76–98; RESP 16–21; TEMP 36–37.1; O2SAT 99–100
[2021-01-28 06:02] LABS: Basophils Absolute Auto 0.1 K/mm3 (0.0-0.1); Basophils Percent Auto 0.6 % (0.2-1.2); Eosinophils Absolute Auto 0.3 K/mm3 (0-0.3); Hemoglobin 7.2 g/dL (12.0-15.0); Immature Granulocyte Absolute 0.05 K/mm3 (0.00-0.031); Immature Granulocyte Percent A 0.5 % (0-0.5); Lymphocytes Absolute Auto 1.85 K/mm3 (0.9-3.2); Lymphocytes Percent Auto 19.1 % (18.3-44.2); Mean Corpuscular HGB Conc 31.3 g/dl (32-36); Mean Corpuscular Hemoglobin 25.6 pg (26-34); Mean Corpuscular Volume 81.9 fl (80-100); Mean Platelet Volume 9.2 fl (7.4-10.4); Monocytes Absolute Auto 0.8 K/mm3 (0.1-0.6); Monocytes Percent Auto 8.5 % (2.6-8.5); Neutrophils Absolute Auto 6.6 K/mm3 (1.3-6.7); Neutrophils Percent Auto 68.3 % (45.5-73.1); Platelet Count Result 277 k/mm3 (150-375); Red Blood Count 2.81 M/mm3 (4.2-5.4); Red Cell Distribution Width 16.2 % (11.5-14.5); White Blood Count 9.7 K/mm3 (4.5-10.0)
[2021-01-28 06:14] LABS: Anion Gap 12 mmol/L (8-16); Blood Urea Nitrogen 51 mg/dL (7-17); Calcium 6.7 mg/dL (8.4-10.2); Carbon Dioxide 22 mmol/L (22-30); Chloride 99 mmol/L (98-107); Estimated CRCL calculation 7 ml/min; Estimated Glomerular Filt Rate 4; Glucose 165 mg/dL (65-110); Potassium 4.7 mmol/L (3.4-5.0); Sodium 133 mmol/L (137-145)
[2021-01-28 07:49] LABS: Glucose Point of Care 135 mg/dl (65-105)
[2021-01-28] MEDS: ALPRAZolam (*CRX) 0.25 MG TABLET PO (07:55)
[2021-01-28] MEDS: oxyCODONE/ACETAMINOPHEN (*CRX) 5-325 MG TABLET 1 TABLET PO ×3 (07:55→20:15)
[2021-01-28] MEDS: DOCUSATE SODIUM 100 MG CAPSULE PO ×2 (07:59→20:10)
[2021-01-28] MEDS: FAMOTIDINE 20 MG TABLET PO ×2 (08:00→20:10)
--- NOTE | 2021-01-28 08:56 | PCNWS ---
Weekly nutritional screen. Patient is tolerating current diet with adequate intake. Average meal consumption of 78%. No weight loss reported. No nutritional needs at this time.
--- NOTE | 2021-01-28 09:56 | P.PNNP_ITS ---
Progress Note: A&P Assessment and Plan (1) End stage renal disease: Code(s): N18.6 - End stage renal disease Status: Chronic Assessment and Plan: * due progression of disease from her HTN and DM * s/p new tunneled HD catheter on 01/26/21 (previous HD catheter had not been working well since placement) * HD yesterday and plan next HD treatment tomorrow * hopefully will be able to get set up at outpatient dialysis and be discharged soon. (2) Chest pain: Qualifiers: Chest pain type: unspecified Qualified Code(s): R07.9 - Chest pain, unspecified Code(s): R07.9 - Chest pain, unspecified Status: Acute Assessment and Plan: * noted during this hospital stay * Lexiscan is negative (3) HTN (hypertension): Qualifiers: Hypertension type: unspecified Qualified Code(s): I10 - Essential (primary) hypertension Code(s): I10 - Essential (primary) hypertension Status: Chronic Assessment and Plan: * BP continues to fluctuate but better overall * He was high early in dialysis. Will see how it goes with fluid removal. (4) Anemia: Code(s): D64.9 - Anemia, unspecified Status: Chronic Assessment and Plan: * likely due to ESRD * iron studies with some evidence of iron deficiency * would try to avoid PRBC transfusion since she is a potential candidate for kidney transplantation * Epogen and venofer with HD * Hemoglobin 7.2 today. (5) Diabetes: Code(s): E11.9 - Type 2 diabetes mellitus without complications Status: Chronic Assessment and Plan: * follow accuchecks * on SSI Will continue to follow. Subjective Date/time seen: 01/28/21 09:56 Interval history: patient is on dialysis and tolerating it well. The catheter is working well. there is substantially less pain now. She was seen at 8:32 a.m. Exam Narrative: General: WD/WN AA female in NAD Heart: normal S1 and S2; no rub Lungs: clear bilateral Abdomen: soft, nontender, nondistended, positive bowel sounds Extremities: no cyanosis or clubbing; trace edema Skin: no rash Objective Data Vital Signs Vital Signs: Vital Signs - 24 hr 01/27/21 10:00 01/27/21 12:00 01/27/21 14:00 Temperature 36.8 C Pulse Rate 94 92 96 Respiratory Rate 14 Blood Pressure 152/58 H Pulse Oximetry 99 01/27/21 16:00 01/27/21 20:00 01/27/21 20:58 Temperature 36.1 C L Pulse Rate 97 97 Respiratory Rate 14 14 Blood Pressure 176/82 H Pulse Oximetry 99 99 97 01/27/21 21:12 01/28/21 05:27 01/28/21 08:20 Temperature 36.2 C L 36.1 C L 37.1 C Pulse Rate 94 89 90 Respiratory Rate 18 16 16 Blood Pressure 184/82 H 154/74 H 153/97 H Pulse Oximetry 100 99 01/28/21 08:28 01/28/21 08:45 01/28/21 09:00 Temperature Pulse Rate 87 80 82 Respiratory Rate Blood Pressure 185/100 H 190/97 H 154/73 H Pulse Oximetry 01/28/21 09:15 01/28/21 09:30 01/28/21 09:45 Temperature Pulse Rate 84 81 76 Respiratory Rate Blood Pressure 153/72 H 153/67 H 159/89 H Pulse Oximetry Intake/Output Intake/Output:
--- NOTE | 2021-01-28 09:56 | PM.PNNEP ---
Progress Note: A&P Assessment and Plan (1) End stage renal disease: Code(s): N18.6 - End stage renal disease Status: Chronic Assessment and Plan: due progression of disease from her HTN and DM s/p new tunneled HD catheter on 01/26/21 (previous HD catheter had not been working well since placement) HD yesterday and plan next HD treatment tomorrow hopefully will be able to get set up at outpatient dialysis and be discharged soon. (2) Chest pain: Qualifiers: Chest pain type: unspecified Qualified Code(s): R07.9 - Chest pain, unspecified Code(s): R07.9 - Chest pain, unspecified Status: Acute Assessment and Plan: noted during this hospital stay Lexiscan is negative (3) HTN (hypertension): Qualifiers: Hypertension type: unspecified Qualified Code(s): I10 - Essential (primary) hypertension Code(s): I10 - Essential (primary) hypertension Status: Chronic Assessment and Plan: BP continues to fluctuate but better overall He was high early in dialysis. Will see how it goes with fluid removal. (4) Anemia: Code(s): D64.9 - Anemia, unspecified Status: Chronic Assessment and Plan: likely due to ESRD iron studies with some evidence of iron deficiency would try to avoid PRBC transfusion since she is a potential candidate for kidney transplantation Epogen and venofer with HD Hemoglobin 7.2 today. (5) Diabetes: Code(s): E11.9 - Type 2 diabetes mellitus without complications Status: Chronic Assessment and Plan: follow accuchecks on SSI Will continue to follow. Subjective Date/time seen: 01/28/21 09:56 Interval history: patient is on dialysis and tolerating it well. The catheter is working well. there is substantially less pain now. She was seen at 8:32 a.m. Exam Narrative: General: WD/WN AA female in NAD Heart: normal S1 and S2; no rub Lungs: clear bilateral Abdomen: soft, nontender, nondistended, positive bowel sounds Extremities: no cyanosis or clubbing; trace edema Skin: no rash Objective Data Vital Signs Vital Signs: Vital Signs - 24 hr 01/27/21 10:00 01/27/21 12:00 01/27/21 14:00 Temperature 36.8 C Pulse Rate 94 92 96 Respiratory Rate 14 Blood Pressure 152/58 H Pulse Oximetry 99 12/05/21 16:00 01/27/21 20:00 01/27/21 20:58 Temperature 36.1 C L Pulse Rate 97 97 Respiratory Rate 14 14 Blood Pressure 176/82 H Pulse Oximetry 99 99 97 01/27/21 21:12 01/28/21 05:27 01/28/21 08:20 Temperature 36.2 C L 36.1 C L 37.1 C Pulse Rate 94 89 90 Respiratory Rate 18 16 16 Blood Pressure 184/82 H 154/74 H 153/97 H Pulse Oximetry 100 99 01/28/21 08:28 01/28/21 08:45 01/28/21 09:00 Temperature Pulse Rate 87 80 82 Respiratory Rate Blood Pressure 185/100 H 190/97 H 154/73 H Pulse Oximetry 01/28/21 09:15 01/28/21 09:30 01/28/21 09:45 Temperature Pulse Rate 84 81 76 Respiratory Rate Blood Pressure 153/72 H 153/67 H 159/89 H Pulse Oximetry Intake/Output Intake/Output: Intake & Output 01/25/21 01/26/21 01/27/21 01/28/21 23:59 23:59 23:59 23:59 Intake Total 1440 1940 1070 250 Output Total 1200 2225 1075 Balance 240 -285 -5 250 Meds/Results Medications: Active Medications Generic Name Dose Route Start Last Admin Trade Name Lorenzoq PRN Reason Stop Dose Admin Acetaminophen 650 mg 01/20/21 16:21 01/26/21 12:06 Acetaminophen 325 Mg Tablet PO 650 mg Q4H PRN Administration Mild Pain (1-3) or Fever Albuterol 2.5 mg 01/21/21 10:12 Albuterol Sulfate Neb 2.5 Mg/0.5 Ml Inh INHALATION Q6HRT PRN SOB or wheezing Alprazolam 0.25 mg 01/23/21 12:17 01/28/21 07:55 Alprazolam (*Crx) 0.25 Mg Tablet PO 0.25 mg BID PRN Administration Anxiety Amlodipine Besylate 10 mg 01/20/21 09:00 01/27/21 09:33 Amlodipine Besylate 5 Mg Tablet PO 10 mg DAILY COUNT INCLUDES THE [facility] A
[2021-01-28] MEDS: IRON SUCROSE COMPLEX 200 MG in SODIUM CHLORIDE 0.9% IV 50 ML 240 MG IVPB (10:23)
[2021-01-28] MEDS: SODIUM CHLORIDE 0.9% IV 1,000 ML 999 ML IV CONT ×2 (10:24→10:25)
[2021-01-28] MEDS: EPOETIN ALFA-EPBX 10,000 UNITS/ML VIAL 10000 UNITS IV PUSH (10:24)
[2021-01-28 12:04] LABS: Glucose Point of Care 156 mg/dl (65-105)
[2021-01-28] MEDS: hydrALAZINE HCL 25 MG TABLET PO ×3 (12:11→20:09)
[2021-01-28] MEDS: amLODIPine BESYLATE 5 MG TABLET 10 MG PO (12:12)
--- NOTE | 2021-01-28 13:39 | PCNSR ---
On 01/28/21, the student,Gina Hernandez, provided care and completed [facility] documentation on this patient. I have reviewed the student's documentation and agree with the findings.
--- NOTE | 2021-01-28 14:17 | P.PNIM_ITS ---
Progress Note: A&P Assessment and Plan (1) Acute renal failure: Code(s): N17.9 - Acute kidney failure, unspecified Status: Acute Assessment and Plan: Acute on chronic renal failure who presents with a creatinine of 14, BUN 96. Likely secondary to uncontrolled hypertension, diabetes * Renal ultrasound showed Right renal cyst measuring 1.6 cm. Otherwise, unremarkable renal ultrasound. * General Surgery placed Temporary Dialysis catheter * Had been attempting dialysis but catheter was not functioning properly, general surgery placed a new one * She has now had 2 dialysis treatments with improvement in her labs, potassium 4.7, BUN 51, Creatinine 11.7 * Nephrology following, appreciate their recommendations. I know they are working on setting up outpatient treatment. (2) Malignant hypertensive urgency: Code(s): I16.0 - Hypertensive urgency Status: Acute Assessment and Plan: Patient's blood pressures were 200/100 on admission. She does not check her blood pressure at home. She just got insurance and does not have a regular PCP to follow up with get. She has seen Dr. Fernandez nephrology but the last time was 6 months ago. * Continue amlodipine 10 mg, PO hydralazine 10 mg QID, and Clonidine 0.1 mg for blood pressure greater than 180 systolic per nephrology * Continues fluctuating but overall improved. Should improve after dialysis treatment today. Continue monitoring. Make adjustments as needed. (3) Anemia in chronic kidney disease: Code(s): N18.9 - Chronic kidney disease, unspecified; D63.1 - Anemia in chronic kidney disease Status: Acute Assessment and Plan: Normocytic anemia. Likely secondary to acute on chronic kidney failure * Iron panel showed slight iron deficiency. Vitamin B12, folic acid, TSH are normal * Nephrology has started iron infusion * H&H low but Stable, did dip down to 6.5, nephrology did Epo injection * Nephrology following, appreciate their input. Trying to avoid transfusions at this time in the event of possible kidney transplant in the future. (4) Atypical chest pain: Code(s): R07.89 - Other chest pain Status: Acute Assessment and Plan: * Negative troponin x2 * Chest x-ray shows No acute cardiopulmonary abnormality. * EKG shows normal sinus rhythm with rate 85 beats per minute, with possible anterior [place] * Telemetry shows normal sinus rhythm at 103 beats per minute, no acute arrhythmia on tele * Echocardiogram with trace mitral valve regurgitation, otherwise unremarkable w/ EF of 60-65% * Negative Karen scan today. * Cardiology following, suspect chest pain is caused by adjustment to dialysis and musculoskeletal discomfort. * Could also be some anxiety component as patient admits to being very anxious about dialysis. * Resolved at this time * Lexiscan was ordered and is negative (5) Hypoglycemia: Code(s): E16.2 - Hypoglycemia, unspecified Status: Acute Assessment and Plan: 01/20/21: I was reviewing the patient's labs and noticed that her glucose went from 248 to 81. I could not find how much insulin she had received so I called the nurse who told me she received NovoLog 30 units which was what she takes at home and that she was hypoglycemic at 40 earlier this morning at 10:50 and she received the hypoglycemic protocol but did not call to inform me of this. I called the patient and aske
--- NOTE | 2021-01-28 14:17 | PM.IMPN ---
Progress Note: A&P Assessment and Plan (1) Acute renal failure: Code(s): N17.9 - Acute kidney failure, unspecified Status: Acute Assessment and Plan: Acute on chronic renal failure who presents with a creatinine of 14, BUN 96. Likely secondary to uncontrolled hypertension, diabetes Renal ultrasound showed Right renal cyst measuring 1.6 cm. Otherwise, unremarkable renal ultrasound. General Surgery placed Temporary Dialysis catheter Had been attempting dialysis but catheter was not functioning properly, general surgery placed a new one She has now had 2 dialysis treatments with improvement in her labs, potassium 4.7, BUN 51, Creatinine 11.7 Nephrology following, appreciate their recommendations. I know they are working on setting up outpatient treatment. (2) Malignant hypertensive urgency: Code(s): I16.0 - Hypertensive urgency Status: Acute Assessment and Plan: Patient's blood pressures were 200/100 on admission. She does not check her blood pressure at home. She just got insurance and does not have a regular PCP to follow up with get. She has seen Dr. Fernandez nephrology but the last time was 6 months ago. Continue amlodipine 10 mg, PO hydralazine 10 mg QID, and Clonidine 0.1 mg for blood pressure greater than 180 systolic per nephrology Continues fluctuating but overall improved. Should improve after dialysis treatment today. Continue monitoring. Make adjustments as needed. (3) Anemia in chronic kidney disease: Code(s): N18.9 - Chronic kidney disease, unspecified; D63.1 - Anemia in chronic kidney disease Status: Acute Assessment and Plan: Normocytic anemia. Likely secondary to acute on chronic kidney failure Iron panel showed slight iron deficiency. Vitamin B12, folic acid, TSH are normal Nephrology has started iron infusion H&H low but Stable, did dip down to 6.5, nephrology did Epo injection Nephrology following, appreciate their input. Trying to avoid transfusions at this time in the event of possible kidney transplant in the future. (4) Atypical chest pain: Code(s): R07.89 - Other chest pain Status: Acute Assessment and Plan: Negative troponin x2 Chest x-ray shows No acute cardiopulmonary abnormality. EKG shows normal sinus rhythm with rate 85 beats per minute, with possible anterior [place] Telemetry shows normal sinus rhythm at 103 beats per minute, no acute arrhythmia on tele Echocardiogram with trace mitral valve regurgitation, otherwise unremarkable w/ EF of 60-65% Negative Karen scan today. Cardiology following, suspect chest pain is caused by adjustment to dialysis and musculoskeletal discomfort. Could also be some anxiety component as patient admits to being very anxious about dialysis. Resolved at this time Lexiscan was ordered and is negative (5) Hypoglycemia: Code(s): E16.2 - Hypoglycemia, unspecified Status: Acute Assessment and Plan: 01/20/21: I was reviewing the patient's labs and noticed that her glucose went from 248 to 81. I could not find how much insulin she had received so I called the nurse who told me she received NovoLog 30 units which was what she takes at home and that she was hypoglycemic at 40 earlier this morning at 10:50 and she received the hypoglycemic protocol but did not call to inform me of this. I called the patient and asked her when the last time she took her insulin was, she tells me she has not taken her insulin ?in a long time?. Review of medical record shows she had insulin prescribed February 2020 but was never refilled. Her hemoglobin A1c is 6.1% which is well controlled. Due to the patient's acute renal failure this will most likely hold on to the NovoLog insulin longer than expected. I talk
[2021-01-28 16:41] LABS: Glucose Point of Care 233 mg/dl (65-105)
[2021-01-28] MEDS: INSULIN ASPART (*BKC) 100 UNITS/ML SUB-Q (16:41)
[2021-01-28 21:05] LABS: Glucose Point of Care 219 mg/dl (65-105)
[2021-01-29] MEDS: oxyCODONE/ACETAMINOPHEN (*CRX) 5-325 MG TABLET 1 TABLET PO ×2 (04:57→09:23)
[2021-01-29 05:46] LABS: Basophils Absolute Auto 0.1 K/mm3 (0.0-0.1); Basophils Percent Auto 0.7 % (0.2-1.2); Eosinophils Absolute Auto 0.3 K/mm3 (0-0.3); Eosinophils Percent Auto 3.1 % (0-4.4); Hematocrit 28.1 % (37.0-47.0); Hemoglobin 8.4 g/dL (12.0-15.0); Immature Granulocyte Absolute 0.08 K/mm3 (0.00-0.031); Immature Granulocyte Percent A 0.8 % (0-0.5); Lymphocytes Absolute Auto 2.35 K/mm3 (0.9-3.2); Lymphocytes Percent Auto 24.1 % (18.3-44.2); Mean Corpuscular HGB Conc 29.9 g/dl (32-36); Mean Corpuscular Hemoglobin 25.6 pg (26-34); Mean Corpuscular Volume 85.7 fl (80-100); Monocytes Absolute Auto 0.9 K/mm3 (0.1-0.6); Monocytes Percent Auto 9.2 % (2.6-8.5); Neutrophils Absolute Auto 6.1 K/mm3 (1.3-6.7); Neutrophils Percent Auto 62.1 % (45.5-73.1); Platelet Count Result 296 k/mm3 (150-375); Red Blood Count 3.28 M/mm3 (4.2-5.4); White Blood Count 9.8 K/mm3 (4.5-10.0)
[2021-01-29 06:00] VITALS: BP 169/84; PULSE 91; RESP 21; TEMP 36.3; O2SAT 100
[2021-01-29 06:13] LABS: Anion Gap 11 mmol/L (8-16); Blood Urea Nitrogen 30 mg/dL (7-17); Calcium 7.6 mg/dL (8.4-10.2); Carbon Dioxide 23 mmol/L (22-30); Chloride 100 mmol/L (98-107); Estimated CRCL calculation 9 ml/min; Estimated Glomerular Filt Rate 5; Glucose 186 mg/dL (65-110); Potassium 4.2 mmol/L (3.4-5.0); Sodium 134 mmol/L (137-145)
[2021-01-29 07:40] LABS: Anisocytosis 1+ (NORMAL); Hypochromasia 1+ (NORMAL); Platelet Estimate Adequate (Adequate)
[2021-01-29 07:41] LABS: Macrocytosis 1+ (NORMAL)
[2021-01-29 07:47] LABS: Glucose Point of Care 159 mg/dl (65-105)
[2021-01-29] MEDS: amLODIPine BESYLATE 5 MG TABLET 10 MG PO (08:12)
[2021-01-29] MEDS: hydrALAZINE HCL 25 MG TABLET PO ×2 (08:13→12:03)
[2021-01-29] MEDS: DOCUSATE SODIUM 100 MG CAPSULE PO (08:17)
[2021-01-29] MEDS: FAMOTIDINE 20 MG TABLET PO (08:17)
[2021-01-29 08:35] VITALS: BP 174/72; PULSE 90; RESP 20; TEMP 35.8; O2SAT 100
--- NOTE | 2021-01-29 10:40 | PM.PNNEP ---
Progress Note: A&P Assessment and Plan (1) End stage renal disease: Code(s): N18.6 - End stage renal disease Status: Chronic Assessment and Plan: due progression of disease from her HTN and DM s/p new tunneled HD catheter on 01/26/21 (previous HD catheter had not been working well since placement) HD yesterday and plan next HD treatment tomorrow Patient ready for discharge at any time from kidney standpoint hopefully will be able to get set up at outpatient dialysis and be discharged soon. (2) Chest pain: Qualifiers: Chest pain type: unspecified Qualified Code(s): R07.9 - Chest pain, unspecified Code(s): R07.9 - Chest pain, unspecified Status: Acute Assessment and Plan: noted during this hospital stay Lexiscan is negative (3) HTN (hypertension): Qualifiers: Hypertension type: unspecified Qualified Code(s): I10 - Essential (primary) hypertension Code(s): I10 - Essential (primary) hypertension Status: Chronic Assessment and Plan: BP continues to fluctuate but better overall blood pressure was improved with dialysis but then went back up today again. I agree with starting lisinopril 20 (4) Anemia: Code(s): D64.9 - Anemia, unspecified Status: Chronic Assessment and Plan: likely due to ESRD iron studies with some evidence of iron deficiency would try to avoid PRBC transfusion since she is a potential candidate for kidney transplantation Epogen and venofer with HD Hemoglobin up to 8.4 (5) Diabetes: Code(s): E11.9 - Type 2 diabetes mellitus without complications Status: Chronic Assessment and Plan: follow accuchecks on SSI Subjective Date/time seen: 01/29/21 10:40 Interval history: patient is on dialysis and tolerating it well. The catheter is working well. there is substantially less pain but still some discomfort. Exam Narrative: General: WD/WN AA female in NAD Heart: normal S1 and S2; no rub Lungs: clear bilateral Abdomen: soft, nontender, nondistended, positive bowel sounds Extremities: no cyanosis or clubbing; trace edema Skin: no rash Objective Data Vital Signs Vital Signs: Vital Signs - 24 hr 01/28/21 10:45 01/28/21 11:00 01/28/21 11:15 Temperature Pulse Rate 83 98 85 Respiratory Rate Blood Pressure 187/97 H 186/94 H 190/98 H Pulse Oximetry 01/28/21 11:30 01/28/21 11:40 01/28/21 12:06 Temperature 36.9 C 36.0 C L Pulse Rate 84 87 98 Respiratory Rate 16 18 Blood Pressure 196/98 H 193/96 H 186/77 H Pulse Oximetry 100 01/28/21 14:43 01/28/21 22:00 01/29/21 06:00 Temperature 36.4 C L 36.7 C 36.3 C L Pulse Rate 96 87 91 Respiratory Rate 20 21 H 21 H Blood Pressure 157/75 H 140/59 L 169/84 H Pulse Oximetry 100 100 100 01/29/21 08:35 Temperature 35.8 C L Pulse Rate 90 Respiratory Rate 20 Blood Pressure 174/72 H Pulse Oximetry 100 Intake/Output Intake/Output: Intake & Output 01/26/21 01/27/21 01/28/21 01/29/21 23:59 23:59 23:59 23:59 Intake Total 1940 1070 600 920 Output Total 2225 1075 1999 100 Balance -285 -5 -1400 820 Meds/Results Medications: Active Medications Generic Name Dose Route Start Last Admin Trade Name Freq PRN Reason Stop Dose Admin Acetaminophen 650 mg 01/20/21 16:21 01/26/21 12:06 Acetaminophen 325 Mg Tablet PO 650 mg Q4H PRN Administration Mild Pain (1-3) or Fever Albuterol 2.5 mg 01/21/21 10:12 Albuterol Sulfate Neb 2.5 Mg/0.5 Ml Inh INHALATION Q6HRT PRN SOB or wheezing Alprazolam 0.25 mg 01/23/21 12:17 01/28/21 07:55 Alprazolam (*Crx) 0.25 Mg Tablet PO 0.25 mg BID PRN Administration Anxiety Amlodipine Besylate 10 mg 01/20/21 09:00 01/29/21 08:12 Amlodipine Besylate 5 Mg Tablet PO 10 mg DAILY CHAYO Administration Bisacodyl 5 mg 01/20/21 02:01 Bisacodyl 5 Mg Tablet Ec PO ONCE PRN Constipati
[2021-01-29] MEDS: lisinopriL 20 MG TABLET PO (10:47)
[2021-01-29 11:32] LABS: Glucose Point of Care 213 mg/dl (65-105)
[2021-01-29] MEDS: INSULIN ASPART (*BKC) 100 UNITS/ML SUB-Q (12:03)
[2021-01-29] MEDS: ALPRAZolam (*CRX) 0.25 MG TABLET PO (12:07)
--- NOTE | 2021-01-29 13:30 | PM.DS ---
DS: Admitting Diagnosis Discharge Date 01/29/21 Admitting Diagnosis Chest pain DS: Discharge Diagnosis Discharge Diagnosis (1) Acute renal failure: Code(s): N17.9 - Acute kidney failure, unspecified Status: Acute Assessment and Plan: Patient is a 40-year-old woman with a history of chronic renal disease, uncontrolled hypertension, diabetes, who presented emergency room with chest pain. Initial vitals showed blood pressure elevated at 201/116, heart rate 87, afebrile, normal oxygenation on room air. Initial labs showed normal white blood cell count, normocytic anemia with a hemoglobin of 7.7, hematocrit 24%, normal differential, normal coag panel, initial labs showed slight hyponatremia at 135, creatinine at 13.7, BUN 95, AST slightly elevated at 39, alk-phos elevated at 206, negative troponin x2. Normal vitamin B12, folic acid and TSH. Chest x-ray showed no acute cardiopulmonary abnormality. Renal ultrasound showed right renal cyst measuring 1.6 cm, otherwise unremarkable renal ultrasound. Patient was admitted to the hospital with acute on chronic renal failure with a consult to Nephrology. Sleeping Car Con[employer] evaluated the patient and recommended starting on dialysis. She had a temporary dialysis catheter placed by General surgery but had significant pain with this catheter. She then underwent a 2nd dialysis catheter placement which she is tolerating a lot better. Also during her hospitalization she had another episode of chest pain and had elevated troponins at 0.106, 0.102 to 0.087. Cardiology was consulted who believes her chest pain was discomfort from dialysis catheter versus musculoskeletal in nature. Lexiscan stress test was ordered showing normal myocardial perfusion at rest and stress, EF 56% with no abnormal ST T wave changes with Lexiscan. No further workup completed at this time. During her hospitalization she also had some issues with her hemoglobin running slightly low at 6.8, but she did not receive a blood transfusion and received an Epogen injection from Nephrology with improvement of her blood counts. She tolerated dialysis well with improvement of her electrolytes and renal function. Her blood pressure has been further treated with amlodipine 10 mg, PO hydralazine 10 mg QID, and Lisinopril 20 mg daily. Instructed to check her blood pressure twice daily and write it down for further evaluation by her primary care doctor. We also had an episode of hypoglycemia on admission because she was supposed to be on high doses of insulin but she had not been taking that for at least 6 months and we had restarted it and she became hypoglycemic. She had to be placed on a dextrose drip and glucose is checked every hour. Eventually her glucoses stabilized and we stop the dextrose drip and she had not been having any further issues. Now that she is on dialysis her glucoses are more elevated so I will start her on Lantus 8 units at night and color check her glucose 5 times a day and follow-up with her primary care provider for further evaluation and recommendation on further adjustments with her medications. Patient will start dialysis tomorrow in [place] at [facility] with a 1:15pm chair time. She was given the information and follow-up instructions. Return to ER warnings given. The patient understands agrees the plan all questions answered. (2) Malignant hypertensive urgency: Code(s): I16.0 - Hypertensive urgency Status: Acute Assessment and Plan: (3) Anemia in chronic kidney disease: Code(s): N18.9 - Chronic kidney disease, unspecified; D63.1 - Anemia in chronic kidney disease Status: Acute Assessment and Plan: (4) Atypical chest pain: Code(s): R07.89 - Other chest pain Status: Acute Assessment and Plan:
== END 2021-01-29 14:10 | disposition home or self-care (01) | DRG 199 ==
LOC: ANHED 23:29 → ANHIMU 01-20 00:26 → ANH3MED 01-28 21:54 → ANHIMU 01-30 13:56
PROVIDERS: Internal Medicine Nephrology; Physician Assistant; Surgery; Admitting Provider Internal Medicine; Emergency Provider Emergency Medicine; PCP Registered Nurse; Visit Provider Internal Medicine
PROC: 0JH63XZ Insertion of Tunneled Vascular Access Device into Chest Subcutaneous Tissue and Fascia, Percutaneous Approach (ICD-10-PCS; CPT 36908; principal; 2021-01-21 15:30)
DX: I16.0 Hypertensive urgency (principal); N17.9 Acute kidney failure, unspecified; M19.031 Primary osteoarthritis, right wrist; M17.12 Unilateral primary osteoarthritis, left knee; E11.22 Type 2 diabetes mellitus with diabetic chronic kidney disease; K57.90 Diverticulosis of intestine, part unspecified, without perforation or abscess without bleeding; K21.9 Gastro-esophageal reflux disease without esophagitis; K58.9 Irritable bowel syndrome, unspecified; T82.41XA Breakdown (mechanical) of vascular dialysis catheter, initial encounter; E11.42 Type 2 diabetes mellitus with diabetic polyneuropathy; Z91.120 Patient's intentional underdosing of medication regimen due to financial hardship; D63.1 Anemia in chronic kidney disease; Z79.4 Long term (current) use of insulin; E11.649 Type 2 diabetes mellitus with hypoglycemia without coma; R07.89 Other chest pain; I12.0 Hypertensive chronic kidney disease with stage 5 chronic kidney disease or end stage renal disease; N18.6 End stage renal disease; E87.5 Hyperkalemia; D50.9 Iron deficiency anemia, unspecified; N28.1 Cyst of kidney, acquired; T82.848A Pain due to vascular prosthetic devices, implants and grafts, initial encounter; Y82.8 Other medical devices associated with adverse incidents; Y92.230 Patient room in hospital as the place of occurrence of the external cause; E66.01 Morbid (severe) obesity due to excess calories; Z68.41 Body mass index [BMI] 40.0-44.9, adult; R77.8 Other specified abnormalities of plasma proteins
CPT/HCPCS: 36415; 71045; 71046; 71250; 76775; 77001; 78452; 80048; 80053; 80069; 81001; 81025; 82607; 82728; 82746; 82948; 83036; 83540; 83550; 84443; 84466; 84484; 85014; 85018; 85025; 85027; 85055; 85610; 85730; 86704; 86706; 86803; 86850; 86900; 86901; 87340; 93005; 93017; 93306; 93971; 94640; 96361; 96374; 96375; 99285; A9270; A9502; C1750; G0257; G0378; G0379; J0690; J1170; J1200; J1642; J1644; J1756; J1815; J2250; J2405; J2704; J2785; J2997; J3010; J7030; J7040; Q5105

== ENCOUNTER 2021-04-19 11:20 | Emergency (ER) | payer MEDICARE, MEDICAID, SELFPAY ==
--- NOTE | ~2021-04-19 | XR_ITS ---
XR lumbar spine 2-3V 04/19/2021 13:26 Indication: Severe low back pain Procedure: 3 views lumbar spine Comparison: No prior studies Findings: Vertebral body heights are maintained. No significant disc narrowing. No fracture, subluxat ion or perihepatic pedicles intact. No spondylolisthesis. There are cholecystectomy clips. Impression: 1: No acute abnormality of the lumbar spine. Reviewed, dictated and finalized at location [facility]. RNMENT AFFAIRS RESEARCHER Impression: 1: No acute abnormality of the lumbar spine.
[2021-04-19 11:21] VITALS: BP 205/84; PULSE 82; RESP 18; TEMP 36.9; O2SAT 100
--- NOTE | 2021-04-19 11:30 | PC.NURSE ---
Patient reports she had a pelvic ultrasound yesterday to look for an ovarian cyst and since the ultrasound she has been having low back pain.
--- NOTE | 2021-04-19 12:20 | ED.BACK ---
HPI - Back Pain/Injury General Chief Complaint: Back Pain/Injury Stated Complaint: Back Pain Time Seen by Provider: 04/19/21 11:58 Source: patient, RN notes reviewed and old records reviewed Mode of arrival: ambulatory Limitations: no limitations History of Present Illness HPI Narrative: 41-year-old female with history of end-stage kidney disease on dialysis presents to the emergency department complaining of acute onset of lower back pain that started yesterday. Patient reports that she did have an outpatient ultrasound to investigate ovarian cyst. Patient states after she got home she laid down and had a nap and when waking up from the nap had onset of right lower back pain. Patient denies any falls or injuries. Patient denies any numbness or static laying down her legs. Patient denies any loss of bowel control on denies any difficulty starting urination. Patient did take a hydrocodone prior to arrival and states this that did not help her pain significantly. Related Data Home Medications Medication Instructions Recorded Confirmed bisacodyl 5 mg PO ONCE PRN 01/20/21 01/20/21 Allergies Allergy/AdvReac Type Severity Reaction Status Date / Time metronidazole Allergy Intermediate Rash Verified 01/19/21 21:13 omeprazole Allergy Intermediate Rash Verified 01/19/21 21:13 Review of Systems Review of Systems: CONSTITUTIONAL: Denies fever, chills, or sweats. EYES: Denies visual changes, redness, or discharge. ENT: Denies rhinorrhea, congestion, sore throat, or otalgia. CARDIOVASCULAR: Denies chest pain, palpitations, or edema. RESPIRATORY: Denies cough or dyspnea. GASTROINTESTINAL: Denies abdominal pain, nausea, vomiting, or diarrhea. GENITOURINARY: Denies dysuria or hematuria. SKIN: Denies rash or itching. MUSCULOSKELETAL: Right lower back pain. Denies any numbness or weakness. NEUROLOGIC: Denies headache, numbness, or weakness. All systems reviewed & are unremarkable except as noted in HPI and below PMFSH Past Medical History Medical History Arthritis Right wrist left knee Chronic kidney disease, stage 5 CKD (chronic kidney disease) stage 4, GFR 15-29 ml/min Diabetes Type 2 insulin-dependent Diverticulitis Erythropoietin deficiency anemia Gastroesophageal reflux Hypertension Irritable bowel syndrome Morbid obesity Peripheral neuropathy Pneumonia Pyuria Surgical History Surgical History Delivery by section X3 History of salpingo-oophorectomy History of tubal ligation Hx of appendectomy Hx of cholecystectomy Family History Family History Mother Diabetes mellitus Breast cancer Sibling History of blood clots Heart disease Sister has something wrong with her heart Father Hypertension Prostate carcinoma Social History Social History Social History: 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 She is a lifelong nonsmoker. She use marijuana in her teenage years but none since then. She occasionally has a glass a wine. She has 3 children. She is single. Her oldest daughter is a durable power attorney at law for healthcare. The patient desires to be a full code. Smoking status: Never smoker Second hand tobacco smoke exposure: Yes Alcohol intake: unknown Substance use: current Substance use type: marijuana Gender identity (if verbalized by the patient): Female Spiritual care concerns: No Exam Narrative: APPEARANCE: Uncomfortable due to back pain HEAD: normocephalic, atraumatic. EYES: PERRLA/EOMI, conjunctivae clear. NOSE: Normal no drainage NECK: Supple. No adenopathy, no masses. RESPIRATORY: Airway patent, respirations nonlabored. Clear to auscultation bilaterally, no rales, rhonchi, wheezing. CARDIOVASCULAR: Regular rate and rhythm without murmu
[2021-04-19] MEDS: HYDROcodone/acetaminophen (*CRX) 5-325 MG TABLET 1 TAB PO (12:26)
[2021-04-19] MEDS: CYCLOBENZAPRINE HCL 10 MG TABLET PO (12:26)
[2021-04-19 13:17] LABS: Add Urine Microscopic? YES; Appearance Urine Clear (Clear); Bilirubin Urine Negative (Negative); Blood Urine Negative (Negative); Color Urine Straw (Yellow); Glucose Urine UA Negative (Negative); Ketones Urine Negative (Negative); Leukocyte Esterase Ur Trace LEU/UL (Negative); Nitrate Urine Negative (Negative); Protein Urine 2+ mg/dL (Negative); RBC Urine 0-2 /hpf (0-2); Specific Grav Ur 1.005 (1.001-1.035); Squamous Epithelial Cell Urine Moderate /hpf (Few); Urobilinogen Urine Negative mg/dL (<2.0); WBC Urine 0-3 /hpf
[2021-04-19 14:18] VITALS: BP 150/75; PULSE 77; RESP 16; O2SAT 100
== END 2021-04-19 14:17 | disposition home or self-care (01) ==
PROVIDERS: Emergency Provider Emergency Medicine; PCP Registered Nurse
DX: M54.50 Low back pain, unspecified (principal); E11.22 Type 2 diabetes mellitus with diabetic chronic kidney disease; I12.0 Hypertensive chronic kidney disease with stage 5 chronic kidney disease or end stage renal disease; N18.6 End stage renal disease; Z99.2 Dependence on renal dialysis; D63.1 Anemia in chronic kidney disease; E11.42 Type 2 diabetes mellitus with diabetic polyneuropathy; K21.9 Gastro-esophageal reflux disease without esophagitis; K58.9 Irritable bowel syndrome, unspecified; M17.11 Unilateral primary osteoarthritis, right knee; Z87.01 Personal history of pneumonia (recurrent); Z79.4 Long term (current) use of insulin
CPT/HCPCS: 72100; 81001; 99283; A9270

== ENCOUNTER 2021-04-26 04:55 | Emergency (ER) | payer MEDICARE, MEDICAID, SELFPAY ==
[2021-04-26 05:02] VITALS: BP 226/110; PULSE 85; RESP 18; TEMP 36.8; O2SAT 98
[2021-04-26 05:20] LABS: Glucose Point of Care 79 mg/dl (65-105)
[2021-04-26 05:39] LABS: Basophils Absolute Auto 0.1 K/mm3 (0.0-0.1); Basophils Percent Auto 0.9 % (0.2-1.2); Eosinophils Absolute Auto 0.3 K/mm3 (0-0.3); Hematocrit 42.5 % (37.0-47.0); Hemoglobin 12.8 g/dL (12.0-15.0); Immature Granulocyte Absolute 0.01 K/mm3 (0.00-0.031); Immature Granulocyte Percent A 0.2 % (0-0.5); Lymphocytes Percent Auto 26.5 % (18.3-44.2); Mean Corpuscular HGB Conc 30.1 g/dl (32-36); Mean Corpuscular Hemoglobin 25.8 pg (26-34); Mean Corpuscular Volume 85.5 fl (80-100); Monocytes Absolute Auto 0.4 K/mm3 (0.1-0.6); Monocytes Percent Auto 5.6 % (2.6-8.5); Neutrophils Percent Auto 61.8 % (45.5-73.1); Platelet Count Result 288 k/mm3 (150-375); Red Blood Count 4.97 M/mm3 (4.2-5.4); Red Cell Distribution Width 15.6 % (11.5-14.5); White Blood Count 6.4 K/mm3 (4.5-10.0)
[2021-04-26 05:43] LABS: Add Urine Microscopic? YES; Appearance Urine Cloudy (Clear); Bacteria Urine Trace /hpf; Bilirubin Urine Negative (Negative); Blood Urine Negative (Negative); Color Urine Straw (Yellow); Glucose Urine UA 1+ mg/dL (Negative); Ketones Urine Negative (Negative); Leukocyte Esterase Ur Negative LEU/UL (Negative); Nitrate Urine Negative (Negative); Protein Urine 2+ mg/dL (Negative); RBC Urine 0-2 /hpf (0-2); Specific Grav Ur 1.009 (1.001-1.035); Squamous Epithelial Cell Urine Few /hpf (Few); Urobilinogen Urine Negative mg/dL (<2.0)
[2021-04-26 05:52] LABS: Anion Gap 12 mmol/L (8-16); Blood Urea Nitrogen 72 mg/dL (7-17); Calcium 8.8 mg/dL (8.4-10.2); Carbon Dioxide 27 mmol/L (22-30); Chloride 100 mmol/L (98-107); Glucose 54 mg/dL (65-110); Potassium 5.2 mmol/L (3.4-5.0); Sodium 139 mmol/L (137-145)
[2021-04-26 05:57] LABS: Estimated CRCL calculation 6 ml/min; Estimated Glomerular Filt Rate 3
--- NOTE | 2021-04-26 05:58 | PC.NURSE ---
EDP Adam aware of low glucose from lab. Patient given a sandwich and juice at this time for low blood glucose. Will continue to monitor
[2021-04-26 06:06] LABS: Glucose Point of Care 94 mg/dl (65-105)
[2021-04-26 06:10] VITALS: BP 216/94; PULSE 70; RESP 18; O2SAT 98
[2021-04-26] MEDS: lisinopriL 20 MG TABLET PO (06:13)
[2021-04-26] MEDS: hydrALAZINE HCL 20 MG/ML VIAL 10 MG IV PUSH (06:18)
--- NOTE | 2021-04-26 06:41 | ED.GENADULT ---
HPI - General Adult General Chief complaint: Recheck/Abnormal Lab/Rx Stated complaint: LOW BLOOD SUGAR Time Seen by Provider: 04/26/21 05:02 History of Present Illness HPI narrative: Patient is a 41-year-old female who presents ER with low blood blood sugar. Patient's blood sugar found to be 20. EMS gave some oral glucagon and sugars gone up to 50. Patient alert and oriented x3. Sipping juice upon arrival to the ER. She reports that she took her home Lantus 8 units last night. She is frustrated because she has had some other days with low blood sugars. She is unsure why. Patient is a dialysis patient who just underwent training for peritoneal dialysis and tonnithin is going to be her first full night on peritoneal dialysis. She still has her hemodialysis catheter to left chest wall. She denies fevers or chills or sweats. No chest pain or chest pressure. She reports she did not administer more insulin than needed. She reports she has been eating throughout the day without issue. Related Data Home Medications Medication Instructions Recorded Confirmed hydralazine 100 mg PO DAILY 04/26/21 labetalol 200 mg PO DAILY 04/26/21 Allergies Allergy/AdvReac Type Severity Reaction Status Date / Time metronidazole Allergy Intermediate Rash Verified 01/19/21 21:13 omeprazole Allergy Intermediate Rash Verified 01/19/21 21:13 Review of Systems Review of Systems: All systems reviewed & are unremarkable except as noted in HPI and below Constitutional: Constitutional: Denies chills, Denies fever(s) and Denies weakness ENT: Denies nasal congestion and Denies sore throat Cardiovascular: Cardiovascular: Denies chest pain, Denies rapid heart rate and Denies radiating jaw, neck or arm pain Respiratory: Respiratory: Denies cough and Denies dyspnea Gastrointestinal: Gastrointestinal: Denies abdominal pain, Denies nausea and Denies vomiting Neurologic: Denies headache(s), Denies focal weakness and Denies numbness PMFSH Past Medical History Medical History Arthritis Right wrist left knee Chronic kidney disease, stage 5 CKD (chronic kidney disease) stage 4, GFR 15-29 ml/min Diabetes Type 2 insulin-dependent Diverticulitis Erythropoietin deficiency anemia Gastroesophageal reflux Hypertension Irritable bowel syndrome Morbid obesity Peripheral neuropathy Pneumonia Pyuria Surgical History Surgical History Delivery by section X3 History of salpingo-oophorectomy History of tubal ligation Hx of appendectomy Hx of cholecystectomy Family History Family History Mother Diabetes mellitus Breast cancer Sibling History of blood clots Heart disease Sister has something wrong with her heart Father Hypertension Prostate carcinoma Social History Social History Social History: 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 She is a lifelong nonsmoker. She use marijuana in her teenage years but none since then. She occasionally has a glass a wine. She has 3 children. She is single. Her oldest daughter is a durable power corporate associate attorney for healthcare. The patient desires to be a full code. Smoking status: Never smoker Second hand tobacco smoke exposure: Yes Alcohol intake: unknown Substance use: current Substance use type: marijuana Gender identity (if verbalized by the patient): Female Spiritual care concerns: No Exam Narrative: GENERAL: Well-appearing, well-nourished, and in no acute distress. HEAD: Normocephalic, atraumatic. EYES: PERRL and EOMI. ENT: Mucous membranes moist. CHEST: Clear to auscultation. No respiratory distress. Dialysis access left chest wall. HEART: Regular rate and rhythm. Normal peripheral pulses. ABDOMEN: Soft, nontender, nondistended. Peritone
[2021-04-26 06:45] VITALS: BP 198/98; PULSE 83; RESP 18; O2SAT 99
[2021-04-26 06:49] VITALS: PULSE 82
[2021-04-26] MEDS: LABETALOL HCL 100 MG TABLET PO (06:49)
[2021-04-26] MEDS: BELLADONNA ALK/PHENOB ELIX 10 ML, MAG HYDROX/ALUMINUM HYD/SIMETH 30 ML, LIDOCAINE HCL 2... PO (06:49)
[2021-04-26 07:30] VITALS: BP 186/106; PULSE 74; RESP 16; O2SAT 100
== END 2021-04-26 07:32 | disposition home or self-care (01) ==
PROVIDERS: Emergency Provider Emergency Medicine; PCP Registered Nurse
DX: E11.649 Type 2 diabetes mellitus with hypoglycemia without coma (principal); E11.22 Type 2 diabetes mellitus with diabetic chronic kidney disease; I12.0 Hypertensive chronic kidney disease with stage 5 chronic kidney disease or end stage renal disease; N18.5 Chronic kidney disease, stage 5; Z99.2 Dependence on renal dialysis; D63.1 Anemia in chronic kidney disease; E11.42 Type 2 diabetes mellitus with diabetic polyneuropathy; K21.9 Gastro-esophageal reflux disease without esophagitis; K58.9 Irritable bowel syndrome, unspecified; E66.01 Morbid (severe) obesity due to excess calories; Z68.39 Body mass index [BMI] 39.0-39.9, adult; Z87.01 Personal history of pneumonia (recurrent); Z79.4 Long term (current) use of insulin; R82.998 Other abnormal findings in urine
CPT/HCPCS: 36415; 80048; 81001; 81025; 82948; 85025; 87086; 87088; 96374; 99284; A9270; J0360

== ENCOUNTER 2021-09-19 21:36 | Emergency (ER) | payer MEDICARE, MEDICAID, SELFPAY ==
--- NOTE | ~2021-09-19 | CT_ITS ---
EXAMINATION: CT abdomen pelvis wo con DATE: 09/19/2021 22:37 INDICATION: Abdomen pain. History of peritoneal dialysis. Small bowel obstruction. TECHNIQUE: Computed tomography (CT) of the abdomen and pelvis was performed without intravenous contr ast. The dose-length product was 1424.75 mGy-cm. Automated exposure control and iterative reconstruct ion technique were employed. COMPARISON: CT dated 06/15/2018. FINDINGS: Lung bases are unremarkable. Heart size normal. There is moderate free intraperitoneal air throughout the abdomen. There is a peritoneal dialysis catheter. There is a large cystic structure in the left adnexa measuring 8 x 6.1 x 4 cm, likely ovarian. No acute osseous abnormality. Status post cholecystectomy. The liver, spleen, pancreas, adrenal gland s are unremarkable. There is renal atrophy. There is right renal cyst. Nonobstructive bowel gas patte rn. IMPRESSION: 1. Moderate volume of free intraperitoneal air which may be iatrogenic from peritoneal dialysis carlos ter. Bowel perforation is less favored, although not excluded. 2: Large left adnexal cyst measuring 8 cm maximum dimension. Consider correlation with ultrasound on a nonemergent basis. Reviewed, dictated and finalized at location [facility]. IMPRESSION: 1. Moderate volume of free intraperitoneal air which may be iatrogenic from per itoneal dialysis catheter. Bowel perforation is less favored, although not excl uded. 2: Large left adnexal cyst measuring 8 cm maximum dimension. Consider correlati on with ultrasound on a nonemergent basis.
--- NOTE | ~2021-09-19 | US_ITS ---
EXAMINATION: US pelvic complete w TV DATE: 09/20/2021 00:20 INDICATION: Pelvic pain. 8 cm left ovarian cyst on prior CT. TECHNIQUE: Multiple transabdominal sonographic images of the pelvis were obtained. COMPARISON: 09/19/2021 FINDINGS: The uterus measures 10.3 x 5.3 x 6.5 cm. The endometrial complex measures 15 mm in thickness. The ri ght ovary is not visualized and is reportedly post right oophorectomy. The left ovary measures 8.3 x 6.8 x 7.8 cm inclusive of anechoic 7.8 x 3.8 x 7.2 cm simple appearing left ovarian cyst without inte rnal septations or solid nodular component. Vascular flow identified in the left ovary on color Doppl er. There is no free fluid in the pelvis. IMPRESSION: 1. 7.8 cm simple appearing left ovarian cyst. Consider follow-up pelvic ultrasound in 2-3 months. Reviewed, dictated and finalized at location [facility]. IMPRESSION: 1. 7.8 cm simple appearing left ovarian cyst. Consider follow-up pelvic ultraso und in 2-3 months.
[2021-09-19 21:33] VITALS: BP 171/116; PULSE 83; RESP 16; TEMP 36.8; O2SAT 100
--- NOTE | 2021-09-19 21:44 | ECG_ITS ---
Measurements Intervals [place] Rate: 74 P: 53 RI: 151 QRS: -17 QRSD: 82 T: 42 QT: 387 QTc: 431 Interpretive Statements SINUS RHYTHM BORDERLINE R WAVE PROGRESSION, ANTERIOR LEADS BORDERLINE ECG Electronically Signed On 09-20-2021 6:58:23 CDT by Tomasz Scott D.O.
[2021-09-19 22:01] LABS: Basophils Absolute Auto 0.1 K/mm3 (0.0-0.1); Basophils Percent Auto 0.6 % (0.2-1.2); Eosinophils Absolute Auto 0.2 K/mm3 (0-0.3); Eosinophils Percent Auto 2.2 % (0-4.4); Hematocrit 36.2 % (37.0-47.0); Hemoglobin 11.1 g/dL (12.0-15.0); Immature Granulocyte Absolute 0.03 K/mm3 (0.00-0.031); Immature Granulocyte Percent A 0.3 % (0-0.5); Lymphocytes Absolute Auto 2.63 K/mm3 (0.9-3.2); Lymphocytes Percent Auto 29.6 % (18.3-44.2); Mean Corpuscular HGB Conc 30.7 g/dl (32-36); Mean Corpuscular Hemoglobin 28.5 pg (26-34); Mean Corpuscular Volume 92.8 fl (80-100); Mean Platelet Volume 9.3 fl (7.4-10.4); Monocytes Absolute Auto 0.5 K/mm3 (0.1-0.6); Monocytes Percent Auto 5.7 % (2.6-8.5); Neutrophils Absolute Auto 5.5 K/mm3 (1.3-6.7); Neutrophils Percent Auto 61.6 % (45.5-73.1); Platelet Count Result 262 k/mm3 (150-375); White Blood Count 8.9 K/mm3 (4.5-10.0)
[2021-09-19 22:11] LABS: Alanine Aminotransferase 17 U/L (6-35); Albumin Level 3.7 g/dL (3.5-5.1); Alkaline Phosphatase 133 U/L (38-126); Anion Gap 11 mmol/L (8-16); Aspartate Amino Transferase 32 U/L (14-36); Bilirubin,Total 0.3 mg/dL (0.2-1.3); Blood Urea Nitrogen 75 mg/dL (7-17); Calcium 8.5 mg/dL (8.4-10.2); Carbon Dioxide 28 mmol/L (22-30); Chloride 97 mmol/L (98-107); Estimated CRCL calculation 7 ml/min; Estimated Glomerular Filt Rate 4; Glucose 170 mg/dL (65-110); Lipase 150 U/L (23-300); Potassium 4.7 mmol/L (3.4-5.0); Sodium 136 mmol/L (137-145)
[2021-09-19 22:14] LABS: Glucose Point of Care 182 mg/dl (65-105)
--- NOTE | 2021-09-19 22:56 | ED.ABDPAIN ---
HPI - Abdominal Pain General Chief Complaint: Abdominal Pain Stated Complaint: ABD PAIN AFTER HOME DIALYSIS Time Seen by Provider: 09/19/21 21:37 History of Present Illness HPI narrative: 41-year-old female who is on peritoneal dialysis states that when she started home dialysis yesterday, she suddenly started having severe pain in her abdomen, she has had pain before with the peritoneal dialysis but this was worse than the usual drain pain that she has, it seems to start from the top of her abdomen and radiate down to the bottom, so that her whole abdomen hurts. Denies any nausea or vomiting, any dysuria, denies any vaginal discharge, fevers or chills. No chest pain or difficulty breathing. No cloudy dialysate Related Data Home Medications Medication Instructions Recorded Confirmed hydralazine 100 mg tablet 100 mg PO DAILY 04/26/21 labetalol 200 mg tablet 200 mg PO DAILY 04/26/21 Allergies Allergy/AdvReac Type Severity Reaction Status Date / Time metronidazole Allergy Intermediate Rash Verified 09/19/21 21:47 omeprazole Allergy Intermediate Rash Verified 09/19/21 21:47 Review of Systems Review of Systems: CONST: No fever. HEENT: No sore throat C/V: No chest pain RESP: No cough GI: Reports abdominal pain : No dysuria. M/S: No joint pain. SKIN: No rash. NEURO: [No headache or focal numbness or weakness] PSYCH: [No depression] [facility] Past Medical History Medical History Arthritis Right wrist left knee Chronic kidney disease, stage 5 CKD (chronic kidney disease) stage 4, GFR 15-29 ml/min Diabetes Type 2 insulin-dependent Diverticulitis Erythropoietin deficiency anemia Gastroesophageal reflux Hypertension Irritable bowel syndrome Morbid obesity Peripheral neuropathy Pneumonia Pyuria Surgical History Surgical History Delivery by section X3 History of salpingo-oophorectomy History of tubal ligation Hx of appendectomy Hx of cholecystectomy Family History Family History Mother Diabetes mellitus Breast cancer Sibling History of blood clots Heart disease Sister has something wrong with her heart Father Hypertension Prostate carcinoma Social History Social History Social History: 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 She is a lifelong nonsmoker. She use marijuana in her teenage years but none since then. She occasionally has a glass a wine. She has 3 children. She is single. Her oldest daughter is a durable power employment attorney for healthcare. The patient desires to be a full code. Smoking status: Never smoker Second hand tobacco smoke exposure: Yes Alcohol intake: unknown Substance use: current Substance use type: marijuana Gender identity (if verbalized by the patient): Female Spiritual care concerns: No Exam Narrative: EXAMINATION OF ORGAN SYSTEMS/BODY AREAS: Constitutional: Vital signs per nursing GENERAL: Writhing in pain HEAD: Normal with no signs of head trauma. EYES: EOMI, conjunctiva normal ENT: Hearing grossly intact LUNGS: Nonlabored breathing. HEART: [Regular rate and rhythm] ABD: [Soft], [tender to palpation] diffusely, no rebound or rigidity EXT: Normal range of motion SKIN: [No rashes or lesions.] NEURO: [Alert and oriented x 3. No gross focal sensory or strength deficits.] PSYCH: Normal affect Course Vital Signs Vital signs: Vital Signs Temperature 98.2 F 09/19/21 21:33 Pulse Rate 83 09/19/21 21:33 Respiratory Rate 16 09/19/21 21:33 Blood Pressure 171/116 H 09/19/21 21:33 Pulse Oximetry 100 09/19/21 21:33 Oxygen Delivery Room Air 09/19/21 21:33 Temperature 98.2 F 09/19/21 21:33 Pulse Rate 79 09/20/21 01:44 Respiratory Rate 18 09/20/21 01:44 Blood Pressure 202/99 H 09/20/21 01
[2021-09-19] MEDS: fentaNYL CITRATE INJ (*CRX) 100 MCG/2 ML VIAL 50 MCG IV PUSH (23:26)
--- NOTE | 2021-09-19 23:28 | PC.NURSE ---
per EDP Letitia IV fentanyl to be given IM. med given left deltoid at this time
[2021-09-19 23:42] LABS: Appearance Urine Clear (Clear); Bilirubin Urine Negative (Negative); Blood Urine 1+ (Negative); Glucose Urine UA 1+ mg/dL (Negative); Ketones Urine Negative (Negative); Leukocyte Esterase Ur Negative LEU/UL (Negative); Nitrate Urine Negative (Negative); Protein Urine 2+ mg/dL (Negative); Urobilinogen Urine 0.2 mg/dL (<2.0); pH Urine 8.5 (5.0-9.0)
[2021-09-19 23:49] LABS: RBC Urine 0-2 /hpf (0-2); Squamous Epithelial Cell Urine Moderate /hpf (Few); WBC Urine 0-3 /hpf
[2021-09-19 23:52] LABS: Lactic Acid Reflex 0.6 mmol/L (0.7-2.0)
[2021-09-19 23:53] LABS: Add Urine Microscopic? YES; Color Urine Light Yellow (Yellow)
[2021-09-20] MEDS: HYDROcodone/acetaminophen (*CRX) 5-325 MG TABLET 1 TAB PO (01:40)
[2021-09-20 01:44] VITALS: BP 202/99; PULSE 79; RESP 18; O2SAT 100
== END 2021-09-20 01:33 | disposition home or self-care (01) ==
PROVIDERS: Emergency Provider Emergency Medicine; PCP Registered Nurse
DX: R10.9 Unspecified abdominal pain (principal); E11.22 Type 2 diabetes mellitus with diabetic chronic kidney disease; N18.5 Chronic kidney disease, stage 5; Z99.2 Dependence on renal dialysis; I12.0 Hypertensive chronic kidney disease with stage 5 chronic kidney disease or end stage renal disease; D63.1 Anemia in chronic kidney disease; E11.42 Type 2 diabetes mellitus with diabetic polyneuropathy; K21.9 Gastro-esophageal reflux disease without esophagitis; K58.9 Irritable bowel syndrome, unspecified; E66.01 Morbid (severe) obesity due to excess calories; Z68.41 Body mass index [BMI] 40.0-44.9, adult; Z87.01 Personal history of pneumonia (recurrent); N94.89 Other specified conditions associated with female genital organs and menstrual cycle; R94.31 Abnormal electrocardiogram [ECG] [EKG]; Z79.4 Long term (current) use of insulin
CPT/HCPCS: 36415; 74176; 76830; 76856; 80053; 81001; 82948; 83605; 83690; 85025; 87040; 93005; 96374; 99284; A9270; J3010

== ENCOUNTER 2021-12-27 16:28 | Observation (INO) | payer MEDICARE, MEDICAID, SELFPAY ==
[2021-12-27] VITALS (10 sets, daily range): BP systolic 151–228; BP diastolic 72–111; PULSE 59–71; RESP 12–22; TEMP 36.6; O2SAT 97–100
--- NOTE | ~2021-12-27 | CT_ITS ---
EXAMINATION: CT brain wo con DATE: 12/27/2021 22:54 INDICATION: Weakness TECHNIQUE: Computed tomography (CT) of the head was performed without intravenous contrast. The mA wa s adjusted according to patient size. Iterative reconstruction technique was employed. Exam dose: 60 5.33 mGy-cm total exam DLP. COMPARISON: April 01, 2019 CT brain FINDINGS: There is calcified cerebral atherosclerosis. Minimal bilateral benign calcifications. No intracranial mass lesion or hemorrhage or cerebrovascular accident. No midline shift or mass effec t. Normal ventricular size. No subdural or epidural hematoma. The orbits appear normal. The mastoid air cells are normally developed and aerated. The paranasal sin uses are well-aerated. No fracture or bone destruction of the cranial vault. IMPRESSION: Cerebral atherosclerosis No acute intracranial abnormality is detected Reviewed, dictated and finalized at [facility]. Reviewed, dictated and finalized at location A.
[2021-12-27] MEDS: DEXTROSE 50% 25 GM/50 ML SYRINGE (16:38)
[2021-12-27 17:00] LABS: Glucose Point of Care 135 mg/dl (65-105)
[2021-12-27 17:00] LABS: Glucose Point of Care 46 mg/dl (65-105)
[2021-12-27 17:18] LABS: Basophils Absolute Auto 0.1 K/mm3 (0.0-0.1); Basophils Percent Auto 0.5 % (0.2-1.2); Eosinophils Absolute Auto 0.2 K/mm3 (0-0.3); Hematocrit 41.2 % (37.0-47.0); Hemoglobin 13.1 g/dL (12.0-15.0); Immature Granulocyte Absolute 0.08 K/mm3 (0.00-0.031); Immature Granulocyte Percent A 0.7 % (0-0.5); Lymphocytes Percent Auto 20.7 % (18.3-44.2); Mean Corpuscular HGB Conc 31.8 g/dl (32-36); Mean Corpuscular Hemoglobin 29.2 pg (26-34); Mean Corpuscular Volume 91.8 fl (80-100); Mean Platelet Volume 9.1 fl (7.4-10.4); Monocytes Absolute Auto 0.5 K/mm3 (0.1-0.6); Monocytes Percent Auto 4.1 % (2.6-8.5); Neutrophils Absolute Auto 8.3 K/mm3 (1.3-6.7); Platelet Count Result 276 k/mm3 (150-375); Red Blood Count 4.49 M/mm3 (4.2-5.4); Red Cell Distribution Width 14.4 % (11.5-14.5); White Blood Count 11.6 K/mm3 (4.5-10.0)
[2021-12-27 17:39] LABS: Anion Gap 15 mmol/L (8-16); Blood Urea Nitrogen 60 mg/dL (7-17); Calcium 9.9 mg/dL (8.4-10.2); Carbon Dioxide 28 mmol/L (22-30); Chloride 97 mmol/L (98-107); Estimated Glomerular Filt Rate 3; Glucose 72 mg/dL (65-110); Potassium 4.8 mmol/L (3.4-5.0); Sodium 140 mmol/L (137-145)
[2021-12-27 17:45] LABS: Glucose Point of Care 85 mg/dl (65-105)
[2021-12-27] MEDS: CALCIUM CARBONATE (TUMS) 500 MG (200 MG ELEMENTAL) (17:46)
[2021-12-27 18:05] LABS: Glucose Point of Care 97 mg/dl (65-105)
--- NOTE | 2021-12-27 18:44 | ED.GENADULT ---
HPI - General Adult General Chief complaint: Recheck/Abnormal Lab/Rx <Denys Akbar MD - Last Filed: 12/27/21 19:21> Stated complaint: hypoglycemic <Denys Akbar MD - Last Filed: 12/27/21 19:21> Time Seen by Provider: 12/27/21 16:48 <Denys Akbar MD - Last Filed: 12/27/21 19:21> History of Present Illness HPI narrative: She is a 41-year-old female history of diabetes presenting to ED after hypoglycemic event. The patient said that she took her insulin this morning but did not feel like eating. EMS was called and she was found have a glucose of 25. She received D10 in the field. When she arrived here glucose was 46. She received the flu vaccine this morning and has been having chills throughout the day. The patient denies any other complaints at this time. <Denys Akbar MD - Last Filed: 12/27/21 19:21> Related Data Home medications: Home Medications Medication Instructions Recorded Confirmed hydralazine 100 mg tablet 100 mg PO DAILY 04/26/21 11/26/21 labetalol 200 mg tablet 200 mg PO DAILY 04/26/21 11/26/21 calcitriol 0.25 mcg capsule 0.25 mcg PO 3XW 11/26/21 11/26/21 cholecalciferol (vitamin D3) 125 125 mcg PO DAILY 11/26/21 11/26/21 mcg (5,000 unit) capsule ropinirole 0.25 mg tablet 0.25 mg PO DAILY 11/26/21 11/26/21 <Denys Akbar MD - Last Filed: 12/27/21 19:21> Allergies/adverse reactions: Allergies Allergy/AdvReac Type Severity Reaction Status Date / Time metronidazole Allergy Intermediate Rash Verified 11/26/21 09:19 omeprazole Allergy Intermediate Rash Verified 11/26/21 09:19 <Denys Akbar MD - Last Filed: 12/27/21 19:21> Review of Systems Review of Systems: CONSTITUTIONAL: Denies night sweats. EYES: No eye pain ENT: Denies rhinorrhea CARDIOVASCULAR: Denies palpitations RESPIRATORY: Denies hemoptysis GASTROINTESTINAL: Denies hematemesis GENITOURINARY: Denies hematuria. SKIN: Denies rash MUSCULOSKELETAL: Denies myalgia. NEUROLOGIC: Denies weakness. PSYCHIATRIC: Denies delusions <Denys Akbar MD - Last Filed: 12/27/21 19:21> [facility] Past Medical History Medical History: Medical History Arthritis Right wrist left knee Chronic kidney disease, stage 5 CKD (chronic kidney disease) stage 4, GFR 15-29 ml/min Diabetes Type 2 insulin-dependent Diverticulitis Dysphagia, oropharyngeal Erythropoietin deficiency anemia Gastroesophageal reflux Hypertension Irritable bowel syndrome Morbid obesity Obesity (BMI 30-39.9) Peripheral neuropathy Pneumonia Pyuria <Denys Akbar MD - Last Filed: 12/27/21 19:21> Surgical History Surgical History: Surgical History Delivery by section X3 History of salpingo-oophorectomy History of tubal ligation Hx of appendectomy Hx of cholecystectomy <Denys Akbar MD - Last Filed: 12/27/21 19:21> Family History Family History: Family History Mother Diabetes mellitus Breast cancer Sibling History of blood clots Heart disease Sister has something wrong with her heart Father Hypertension Prostate carcinoma <Denys Akbar MD - Last Filed: 12/27/21 19:21> Social History Social History: Social History Social History: 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 She is a lifelong nonsmoker. She use marijuana in her teenage years but none since then. She occasionally has a glass a wine. She has 3 children. She is single. Her oldest daughter is a durable power workers compensation defense attorney for healthcare. The patient desires to be a full code. Smoking status: Never smoker Second hand tobacco smoke exposure: Yes Alcohol intake: unknown Substance use: current Substance use type: marijuana Gender identity (if verbalized by the patient): Fe
[2021-12-27] MEDS: hydrALAZINE HCL 50 MG TABLET 100 MG PO (19:46)
[2021-12-27] MEDS: HYDROcodone/acetaminophen (*CRX) 5-325 MG TABLET 1 TAB PO (19:46)
[2021-12-27 19:51] LABS: Glucose Point of Care 130 mg/dl (65-105)
[2021-12-27 20:02] LABS: Influenza A QL RT-PCR Negative (Negative); Influenza B QL RT-PCR Negative (Negative); SARS-CoV-2 RNA PCR Negative
[2021-12-27 20:53] LABS: Glucose Point of Care 167 mg/dl (65-105)
[2021-12-27 21:36] LABS: Glucose Point of Care 163 mg/dl (65-105)
--- NOTE | 2021-12-27 21:53 | PC.NURSE ---
This RN tried to go in and dc this patient and she tried to hold on to this RN and slide down the bed Patient started kicking her feet and saying you cannot make me leave I'm too weak. Patient is now sitting in the chair in room leaning over the trash can saying that she is sick to her stomach and is to weak to go home because her blood sugar is low. This RN did a blood glucose and let the doctor know that her blood sugar was in the 160's
[2021-12-28] VITALS (13 sets, daily range): BP systolic 120–177; BP diastolic 57–87; PULSE 68–89; RESP 18–22; TEMP 36–36.9; O2SAT 96–100
[2021-12-28 02:32] LABS: Glucose Point of Care 209 mg/dl (65-105)
--- NOTE | 2021-12-28 05:52 | ADMGEN ---
This patient, Bakari Smith, was admitted to IMU Room 203-01at [id number]. Patient/family oriented to hospital policies and general routines including ID bracelet, bed and alarms, visiting hours, pain management, procedures, bathroom and other care routines, personal items, smoking policy, room service/diet, and visiting hours. Information on how to activate the Rapid Response Team has been discussed. Patient/Family are encouraged to report perceived risks to care and to ask questions if they do not understand what they are told or what they should do.
[2021-12-28 07:45] LABS: Glucose Point of Care 240 mg/dl (65-105)
[2021-12-28] MEDS: ACETAMINOPHEN 500 MG TABLET 1000 MG PO (08:43)
[2021-12-28] MEDS: hydrALAZINE HCL 50 MG TABLET 100 MG PO (08:46)
[2021-12-28] MEDS: lisinopriL 20 MG TABLET PO (08:47)
[2021-12-28] MEDS: LABETALOL HCL 100 MG TABLET 200 MG PO (08:47)
[2021-12-28] MEDS: CHOLECALCIFEROL 1,000 UNITS TABLET 5000 UNITS PO (08:47)
[2021-12-28] MEDS: CYCLOBENZAPRINE HCL 10 MG TABLET PO (08:48)
[2021-12-28 08:55] LABS: Basophils Absolute Auto 0.1 K/mm3 (0.0-0.1); Basophils Percent Auto 0.4 % (0.2-1.2); Eosinophils Absolute Auto 0.1 K/mm3 (0-0.3); Eosinophils Percent Auto 0.9 % (0-4.4); Hemoglobin 12.4 g/dL (12.0-15.0); Immature Granulocyte Absolute 0.12 K/mm3 (0.00-0.031); Immature Granulocyte Percent A 0.8 % (0-0.5); Lymphocytes Absolute Auto 2.96 K/mm3 (0.9-3.2); Lymphocytes Percent Auto 19.5 % (18.3-44.2); Mean Corpuscular HGB Conc 31.8 g/dl (32-36); Mean Corpuscular Hemoglobin 28.9 pg (26-34); Mean Corpuscular Volume 90.9 fl (80-100); Mean Platelet Volume 9.2 fl (7.4-10.4); Monocytes Absolute Auto 0.6 K/mm3 (0.1-0.6); Monocytes Percent Auto 3.9 % (2.6-8.5); Neutrophils Absolute Auto 11.3 K/mm3 (1.3-6.7); Neutrophils Percent Auto 74.5 % (45.5-73.1); Platelet Count Result 293 k/mm3 (150-375); Red Blood Count 4.29 M/mm3 (4.2-5.4); Red Cell Distribution Width 14.5 % (11.5-14.5); White Blood Count 15.2 K/mm3 (4.5-10.0)
[2021-12-28 09:00] LABS: Alanine Aminotransferase 20 U/L (6-35); Albumin Level 4.3 g/dL (3.5-5.1); Alkaline Phosphatase 137 U/L (38-126); Anion Gap 14 mmol/L (8-16); Aspartate Amino Transferase 23 U/L (14-36); Bilirubin,Total 0.6 mg/dL (0.2-1.3); Blood Urea Nitrogen 61 mg/dL (7-17); Calcium 9.7 mg/dL (8.4-10.2); Carbon Dioxide 22 mmol/L (22-30); Chloride 97 mmol/L (98-107); Glucose 254 mg/dL (65-110); Magnesium 2.1 mg/dL (1.6-2.3); Phosphorus 4.7 mg/dL (2.5-4.5); Potassium 4.9 mmol/L (3.4-5.0); Sodium 133 mmol/L (137-145)
--- NOTE | 2021-12-28 09:05 | PM.IMHP ---
H&P: HPI History of Present Illness Date/Time: 12/28/21 09:05 Chief Complaint: Hyp PMFSH Past Medical History Medical History Arthritis Right wrist left knee Chronic kidney disease, stage 5 CKD (chronic kidney disease) stage 4, GFR 15-29 ml/min Diabetes Type 2 insulin-dependent Diverticulitis Dysphagia, oropharyngeal Erythropoietin deficiency anemia Gastroesophageal reflux Hypertension Irritable bowel syndrome Morbid obesity Obesity (BMI 30-39.9) Peripheral neuropathy Pneumonia Pyuria Surgical History Surgical History Delivery by section X3 History of salpingo-oophorectomy History of tubal ligation Hx of appendectomy Hx of cholecystectomy Family History Family History Mother Diabetes mellitus Breast cancer Sibling History of blood clots Heart disease Sister has something wrong with her heart Father Hypertension Prostate carcinoma Social History Social History Social History: 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 She is a lifelong nonsmoker. She use marijuana in her teenage years but none since then. She occasionally has a glass a wine. She has 3 children. She is single. Her oldest daughter is a durable power tax associate attorney for healthcare. The patient desires to be a full code. Smoking status: Never smoker Second hand tobacco smoke exposure: Yes Alcohol intake: never Substance use: current Substance use type: marijuana Has the Lack of Transportation Kept You From Medical Appointments or From Getting Medications?: No Within the Past 12 Months, Were You Worried Whether Your Food Would Run Out Before You Got Money to Buy More?: Never True What is Your Housing Situation Today?: I Have Housing Are You Worried That in the Next 2 Months, You May Not Have Your Own Housing to Live In?: No Do You Have Trouble Paying Your Heating Or Electricity Bill?: No Do You Have Trouble Paying For Medicines?: No Are You Currently Unemployed and Looking for Work?: No Highest Level of Education Completed: High School Diploma/GED Do You Have Trouble With Childcare or the Care of a Family Member?: No Gender identity (if verbalized by the patient): Female Spiritual care concerns: No Meds Home Medications and Allergies Home Medications Medication Instructions Recorded Confirmed Type blood sugar diagnostic (OneTouch #1 pkg 01/29/21 12/28/21 Rx Verio test strips) insulin glargine 100 unit/mL (3 8 unit (0.08 mL) subcut QPM #15 mL 01/29/21 12/28/21 Rx mL) subcutaneous pen (Lantus Solostar U-100 Insulin) lancets 30 gauge (OneTouch Deltomasz #1 pkg 01/29/21 12/28/21 Rx Plus Lancet) lisinopril 20 mg tablet 20 mg PO QAM 30 days #30 tabs 01/29/21 12/28/21 Rx pen needle, diabetic 32 gauge x #1 pkg 01/29/21 12/28/21 Rx /32 (BD Ultra-Fine Alyson Pen Needle) cyclobenzaprine 10 mg tablet 10 mg PO BID #14 tabs 04/19/21 12/28/21 Rx hydralazine 100 mg tablet 100 mg PO DAILY 04/26/21 12/28/21 History labetalol 200 mg tablet 200 mg PO DAILY 04/26/21 12/28/21 History calcitriol 0.25 mcg capsule 0.25 mcg PO 3XW 11/26/21 12/28/21 History cholecalciferol (vitamin D3) 125 125 mcg PO DAILY 11/26/21 12/28/21 History mcg (5,000 unit) capsule ropinirole 0.25 mg tablet 0.25 mg PO DAILY 11/26/21 12/28/21 History Allergies Allergy/AdvReac Type Severity Reaction Status Date / Time metronidazole Allergy Intermediate Rash Verified 11/26/21 09:19 omeprazole Allergy Intermediate Rash Verified 11/26/21 09:19 Vital Signs Vital Signs - 24 hr 12/27/21 19:53 12/27/21 17:30 12/27/21 17:45 Temperature 97.8 F Pulse Rate 60 59 L 59 L Respiratory Rate 22 H 12 13 Blood Pressure 215/95 H 209/111 H 221/101 H Pulse Oximetry 100 100 100 Oxygen Delivery Room
[2021-12-28] MEDS: INSULIN ASPART (*BKC) 100 UNITS/ML SUB-Q (09:16)
[2021-12-28 09:17] LABS: Estimated CRCL calculation 5 ml/min; Estimated Glomerular Filt Rate 3
--- NOTE | 2021-12-28 09:27 | PM.SD2 ---
Same Day Admit/Disch: HPI History of Present Illness Chief complaint: hypoglycemia, generalized weakness Narrative: Bakari Smith is a 41 year old female with past medical history of diabetes, end-stage renal disease on peritoneal dialysis, hypertension, GERD who presented to the ED after found with a glucose of 26. Patient stated that she was out shopping in [place] getting a dressed with syncopal tonight, when she started having sweats. Patient stated that she felt like her sugar was dropping and started eating now and later that she had her purse. She stated that she got worried about it and started to head home however as she was driving she stated that she did not know how she got home or how she got into bed. It was not until later when her daughter called due to the patient not picking up her granddaughter when she was supposed to. She stated that her daughter stated she did not answer so she called the neighbor the neighbor came in to check on her. It was noted that patient was moaning. Her daughter called the police and EMS was alerted. Patient was given D10 in the field. Upon presentation patient's glucose was 46. Patient was resuscitated. Current glucose is currently 254. Patient stated that when she came to she was very nauseated, vomiting, dry heaving. She also stated that she had headache. However it is been resolved with Tylenol. Patient stated that she was at home last night however she was very weak and could not stand up and could not walk. Patient stated she did not feel comfortable with discharge at that time. However patient did state that she is compliant with all of her medications. She stated that her glucose is 120 to 140s normally. Patient also stated that she does not normally eat and does not have an appetite and stated that she can go days without of a meal. She did state that she tries to eat at home so that she can take her medicines. She also stated that she has expressed her concern to her physician however they state that is part of the grieving process. Patient stated that she had her daughter has recently . Patient did state that she ate prior to leaving the house. Patient currently denies any chest pain, shortness a breath, fevers, chills, pain, diarrhea constipation, lightheadedness, dizziness, syncope, abdominal pain, abnormal swelling, changes to her peritoneal site or source of infection. Patient stated that she feels like she was in her normal state health and currently feels fine today as well. [facility] Past Medical History Medical History Arthritis Right wrist left knee Chronic kidney disease, stage 5 CKD (chronic kidney disease) stage 4, GFR 15-29 ml/min Diabetes Type 2 insulin-dependent Diverticulitis Dysphagia, oropharyngeal Erythropoietin deficiency anemia Gastroesophageal reflux Hypertension Irritable bowel syndrome Morbid obesity Obesity (BMI 30-39.9) Peripheral neuropathy Pneumonia Pyuria Surgical History Surgical History Delivery by section X3 History of salpingo-oophorectomy History of tubal ligation Hx of appendectomy Hx of cholecystectomy Family History Family History Mother Diabetes mellitus Breast cancer Sibling History of blood clots Heart disease Sister has something wrong with her heart Father Hypertension Prostate carcinoma Social History Social History Social History: Patient lives on her own. She has 3 children. She is single. Her oldest daughter is a durable power tax attorney for healthcare. The patient desires to be a full code. Patient stated that she has 5 grandchildren and watches her granddaughter most of the time Smoking status: Never smoker Second hand tobacco smoke exposure: Yes Alcohol intake
[2021-12-28 10:39] LABS: Hemoglobin A1C 11.2 % (<5.7)
[2021-12-28] MEDS: FLUCONAZOLE 150 MG TABLET PO (11:22)
[2021-12-28] MEDS: MEGESTROL ACETATE (*CHEMO) 40 MG TABLET PO (11:23)
[2021-12-28] MEDS: INSULIN ASPART (*BKC) 100 UNITS/ML 20 UNITS SUB-Q (11:41)
[2021-12-28] MEDS: INSULIN HUMAN NPH (*BKC) 100 UNITS/ML 10 UNITS SUB-Q (11:42)
[2021-12-28 11:43] LABS: Glucose Point of Care 397 mg/dl (65-105)
[2021-12-28 13:19] LABS: Glucose Point of Care 203 mg/dl (65-105)
== END 2021-12-28 14:55 | disposition home or self-care (01) ==
LOC: ANHED 22:10 → ANHIMU 12-28 01:51
PROVIDERS: Nurse Practitioner; Admitting Provider Internal Medicine; Emergency Provider Emergency Medicine; PCP Registered Nurse; Visit Provider Internal Medicine
DX: E11.649 Type 2 diabetes mellitus with hypoglycemia without coma (principal); I12.0 Hypertensive chronic kidney disease with stage 5 chronic kidney disease or end stage renal disease; E11.22 Type 2 diabetes mellitus with diabetic chronic kidney disease; D63.1 Anemia in chronic kidney disease; N18.6 End stage renal disease; Z99.2 Dependence on renal dialysis; M19.90 Unspecified osteoarthritis, unspecified site; K57.92 Diverticulitis of intestine, part unspecified, without perforation or abscess without bleeding; Z20.822 Contact with and (suspected) exposure to COVID-19; R53.1 Weakness; K21.9 Gastro-esophageal reflux disease without esophagitis; K58.9 Irritable bowel syndrome, unspecified; E66.01 Morbid (severe) obesity due to excess calories; Z68.33 Body mass index [BMI] 33.0-33.9, adult; G62.9 Polyneuropathy, unspecified; Z79.4 Long term (current) use of insulin; Z79.899 Other long term (current) drug therapy; Z83.3 Family history of diabetes mellitus; Z82.49 Family history of ischemic heart disease and other diseases of the circulatory system
CPT/HCPCS: 36415; 70450; 80048; 80053; 82948; 83036; 83735; 84100; 85025; 87502; 99285; A9270; G0378; J1815; U0003; U0005

== ENCOUNTER 2022-02-17 17:41 | Emergency (ER) | payer MEDICARE, MEDICAID, SELFPAY ==
[2022-02-17 17:55] VITALS: BP 145/116; PULSE 75; RESP 16; TEMP 37.4; O2SAT 100
[2022-02-17 21:08] VITALS: PULSE 81; RESP 18; O2SAT 99
--- NOTE | 2022-02-17 21:20 | ED.SKABFB ---
HPI - Skin/Abscess/Foreign Bdy General Chief complaint: Skin/Abscess/Foreign Body Stated complaint: rash, dialysis pt Time Seen by Provider: 02/17/22 21:06 Source: patient Mode of arrival: ambulatory Limitations: no limitations History of Present Illness HPI narrative: This is a 41 year old female that presents to the ER for an itchy rash present over the last couple of days. Reports diffuse itching. Reports she has been taking Benadryl without relief. No new soaps, lotions, detergents, or medications. Denies fever. Related Data Home Medications Medication Instructions Recorded Confirmed hydralazine 100 mg tablet 100 mg PO BID 04/26/21 01/22/22 labetalol 200 mg tablet 200 mg PO BID 04/26/21 01/22/22 calcitriol 0.25 mcg capsule 0.25 mcg PO 3XW 11/26/21 01/22/22 cholecalciferol (vitamin D3) 125 125 mcg PO DAILY 11/26/21 01/22/22 mcg (5,000 unit) capsule ropinirole 0.25 mg tablet 0.25 mg PO DAILY 11/26/21 01/22/22 Allergies Allergy/AdvReac Type Severity Reaction Status Date / Time metronidazole Allergy Intermediate Rash Verified 02/17/22 21:08 omeprazole Allergy Intermediate Rash Verified 02/17/22 21:08 Review of Systems Review of Systems: CONSTITUTIONAL: Denies fever, chills, or sweats. SKIN: Reports rash and itching. All systems reviewed & are unremarkable except as noted in HPI and below PMFSH Past Medical History Medical History Arthritis Right wrist left knee Chronic kidney disease, stage 5 CKD (chronic kidney disease) stage 4, GFR 15-29 ml/min Diabetes Type 2 insulin-dependent Diverticulitis Dysphagia, oropharyngeal Erythropoietin deficiency anemia Gastroesophageal reflux Hypertension Irritable bowel syndrome Morbid obesity Obesity (BMI 30-39.9) Peripheral neuropathy Pneumonia Pyuria Surgical History Surgical History Delivery by section X3 History of salpingo-oophorectomy History of tubal ligation Hx of appendectomy Hx of cholecystectomy Family History Family History Mother Diabetes mellitus Breast cancer Sibling History of blood clots Heart disease Sister has something wrong with her heart Father Hypertension Prostate carcinoma Social History Social History Social History: Patient lives on her own. She has 3 children. She is single. Her oldest daughter is a durable power terrazzo helper for healthcare. The patient desires to be a full code. 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 HEAD: Normocephalic, atraumatic. EYES: EOMI. CHEST: Clear to auscultation. No respiratory distress. No wheezes rales or rhonchi HEART: Regular rate and rhythm. No murmur heard. Normal peripheral pulses. EXTREMITIES: Normal range of motion. No edema. SKIN: Warm, dry. Multiple, small papules present on the back, hands, web spaces and feet NEURO: No focal deficits. Alert and oriented x3. PSYCH: Normal mood and affect Course
[2022-02-17] MEDS: hydrOXYzine HCL 10 MG TABLET PO (21:53)
== END 2022-02-17 22:10 | disposition home or self-care (01) ==
PROVIDERS: Emergency Provider Physician Assistant; PCP Registered Nurse
DX: B86 Scabies (principal); E11.22 Type 2 diabetes mellitus with diabetic chronic kidney disease; I12.0 Hypertensive chronic kidney disease with stage 5 chronic kidney disease or end stage renal disease; N18.5 Chronic kidney disease, stage 5; D63.1 Anemia in chronic kidney disease; E11.42 Type 2 diabetes mellitus with diabetic polyneuropathy; K58.9 Irritable bowel syndrome, unspecified; E66.01 Morbid (severe) obesity due to excess calories; Z68.37 Body mass index [BMI] 37.0-37.9, adult; M19.031 Primary osteoarthritis, right wrist; M17.12 Unilateral primary osteoarthritis, left knee; Z87.01 Personal history of pneumonia (recurrent); Z90.79 Acquired absence of other genital organ(s); Z79.4 Long term (current) use of insulin
CPT/HCPCS: 99283; A9270

== ENCOUNTER 2022-05-03 13:30 | Inpatient (IN) | payer MEDICARE, MEDICAID, SELFPAY ==
[2022-05-03] VITALS (14 sets, daily range): BP systolic 142–201; BP diastolic 77–97; PULSE 77–90; RESP 11–28; TEMP 36–37.1; O2SAT 99–100; BMI 34.9
--- NOTE | ~2022-05-03 | MR_ITS ---
EXAMINATION: MR brain/brain stem wo con DATE: 05/04/2022 08:37 INDICATION: Stroke TECHNIQUE: Magnetic resonance imaging (MRI) of the brain and brainstem was performed without intraven ous contrast. Sequences included sagittal and axial T1-weighted SE, axial diffusion-weighted FS SE, a xial T2*-weighted GRE, axial 3D SWAN, axial T2-weighted FLAIR, and axial T2-weighted FSE. Apparent di ffusion coefficient (ADC) maps were created. COMPARISON: Head CT and CT angiogram dated 05/03/2022 FINDINGS: There is a region of restricted diffusion and T2 hyperintense cytotoxic edema in the left occipital l obe corresponding to the region of decreased attenuation on prior CT consistent with acute infarct. N o intracranial hemorrhage or abnormal intracranial mass lesion. There are scattered areas of nonspeci fic increased T2-weighted signal intensity in the cerebral white matter, predominantly involving the deep and periventricular white matter. There are no intraparenchymal signal abnormalities seen on the other pulse sequences. The ventricles are symmetric and normal in size. There are no abnormal extra- axial fluid collections. Flow voids are seen in the cerebral arteries on the T2-weighted sequences co nsistent with their expected patency. Visualized orbits and soft tissues are unremarkable. IMPRESSION: 1. Small acute infarct in the left occipital lobe. Reviewed, dictated and finalized at location A.
--- NOTE | ~2022-05-03 | CT_ITS ---
CT ANGIOGRAM NECK AND HEAD History: Acute infarct. Technique: Serial spiral axial images through the head and neck were obtained during arterial phase I V injection of 100 cc of Omnipaque 350. 3-D postprocessing and MIP images were then reconstructed on the remote workstation. Dose reduction technique was used on this scan by utilizing automated exposur e control and iterative reconstruction technique. The dose-length product (DLP) was 1107.78 mGy-cm. CTA neck findings: Bilateral vertebral arteries are patent. Bilateral common carotid, internal carot id, and external carotid artery are patent. No large vessel occlusion, stenosis, or aneurysm. The pro ximal right internal carotid artery demonstrates 0% stenosis relative to the normal distal artery lum en diameter. The proximal left internal carotid artery demonstrates 0% stenosis relative to the rosalind l distal artery lumen diameter. CTA head findings: Distal vertebral arteries, basilar artery, and posterior cerebral arteries are pat ent. Distal internal carotid arteries, anterior cerebral arteries, and middle cerebral arteries are p atent. No large vessel occlusion. No stenosis or aneurysm. Impression: No significant abnormality seen. Reviewed, dictated and finalized at location . [employer] HEATING MECH[employer]IC Impression: No significant abnormality seen.
--- NOTE | ~2022-05-03 | CT_ITS ---
EXAMINATION: CT brain wo con DATE: 05/03/2022 14:15 INDICATION: Headache, nausea and vomiting. Hypertension. TECHNIQUE: Computed tomography (CT) of the head was performed without intravenous contrast. Sagittal and coronal reconstructions were performed. The mA was adjusted according to patient size. Iterative reconstruction technique was employed. The dose-length product was 605.33 mGy-cm. COMPARISON: head CT dated 12/27/2021 FINDINGS: Small region of of decreased attenuation appearing to involve both the cristobal and white matter at the l eft occipital lobe suggestive of cytotoxic edema which is new since the prior study consistent with a ge indeterminate but likely relatively recent and potentially acute infarct. No acute intracranial he morrhage or abnormal extra axial fluid collection. Ventricles are normal and symmetric. No mass/mass effect. The orbits, paranasal sinuses and mastoid air cells are normal. IMPRESSION: 1. Small region of decreased attenuation at the left occipital lobe suspicious for relatively recent, potentially acute, infarct which is new since 12/27/2021. Reviewed, dictated and finalized at location A. TAL ASSET COORDINATOR
--- NOTE | 2022-05-03 13:37 | ED.GENADULT ---
HPI - General Adult General Chief complaint: Headache Stated complaint: severe headache History of Present Illness HPI narrative: 42-year-old female with history of peritoneal dialysis follows up with Dr. Fernandez presenting to the emergency department for evaluation of cute onset of headache. Patient states last night she had onset of a frontal headache and has since had intense nausea vomiting. Patient does report generalized weakness but denies any focal weakness. Patient states that she did take some Excedrin at home with no significant improvement. Patient denies any prior history of migraines. Related Data Home Medications Medication Instructions Recorded Confirmed hydralazine 100 mg tablet 100 mg PO BID 04/26/21 01/22/22 labetalol 200 mg tablet 200 mg PO BID 04/26/21 01/22/22 calcitriol 0.25 mcg capsule 0.25 mcg PO 3XW 11/26/21 01/22/22 cholecalciferol (vitamin D3) 125 125 mcg PO DAILY 11/26/21 01/22/22 mcg (5,000 unit) capsule ropinirole 0.25 mg tablet 0.25 mg PO DAILY 11/26/21 01/22/22 Allergies Allergy/AdvReac Type Severity Reaction Status Date / Time metronidazole Allergy Intermediate Rash Verified 05/03/22 13:39 omeprazole Allergy Intermediate Rash Verified 05/03/22 13:39 Review of Systems Review of Systems: All systems reviewed & are unremarkable except as noted in HPI and below PMFSH Past Medical History Medical History Arthritis Right wrist left knee Chronic kidney disease, stage 5 CKD (chronic kidney disease) stage 4, GFR 15-29 ml/min Diabetes Type 2 insulin-dependent Diverticulitis Dysphagia, oropharyngeal Erythropoietin deficiency anemia Gastroesophageal reflux Hypertension Irritable bowel syndrome Morbid obesity Obesity (BMI 30-39.9) Peripheral neuropathy Pneumonia Pyuria Surgical History Surgical History Delivery by section X3 History of salpingo-oophorectomy History of tubal ligation Hx of appendectomy Hx of cholecystectomy Family History Family History Mother Diabetes mellitus Breast cancer Sibling History of blood clots Heart disease Sister has something wrong with her heart Father Hypertension Prostate carcinoma Social History Social History (Reviewed 01/22/22 @ 11:16 by Deidra Hayward [facility] Social History: Patient lives on her own. She has 3 children. She is single. Her oldest daughter is a durable power hourly caregiver for healthcare. The patient desires to be a full code. Patient stated that she has 5 grandchildren and watches her granddaughter most of the time Smoking status: Never smoker Second hand tobacco smoke exposure: Yes Alcohol intake: never Substance use type: marijuana Lack of Transportation: No Lack of Food: Never True Current Housing: I Have Housing Concerned About Future Housing: No Difficulty Paying Gas/Electric Bills: No Difficulty Paying for Meds: No Currently Unemployed: No Education: High School Diploma/GED Difficulty w/ Childcare or Family Care: No Living arrangements: alone Occupation/Education: other Additional occupation/education comments: disabled, 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 EYES: PERRLA/EOMI, conjunctivae clear. NOSE: Normal no drainage NECK: Supple. No adenopathy, no masses. RESPIRATORY: Airway patent, respirations nonlabored. Clear to auscultation bilaterally, no rales, rhonchi, wheezing. CARDIOVASCULAR: Regular rate and rhythm without murmurs rubs or gallops. ABDOMINAL: Soft, nontender, nondistended, normal bowel sounds
[2022-05-03] MEDS: HYDROmorphone HCL INJ (*CRX) 1 MG/ML SYR 0.5 MG IV PUSH (13:54)
[2022-05-03] MEDS: PROCHLORPERAZINE EDISYLATE 10 MG/2 ML VIAL IV PUSH (13:55)
[2022-05-03] MEDS: diphenhydrAMINE HCl INJ 50 MG/ML VIAL IV PUSH (13:55)
[2022-05-03 14:05] LABS: Basophils Percent Auto 0.5 % (0.2-1.2); Eosinophils Absolute Auto 0.1 K/mm3 (0-0.3); Eosinophils Percent Auto 1.6 % (0-4.4); Hematocrit 36.6 % (37.0-47.0); Hemoglobin 11.7 g/dL (12.0-15.0); Immature Granulocyte Absolute 0.03 K/mm3 (0.00-0.031); Immature Granulocyte Percent A 0.3 % (0-0.5); Lymphocytes Absolute Auto 2.55 K/mm3 (0.9-3.2); Lymphocytes Percent Auto 28.9 % (18.3-44.2); Mean Corpuscular Hemoglobin 28.5 pg (26-34); Mean Corpuscular Volume 89.1 fl (80-100); Mean Platelet Volume 9.4 fl (7.4-10.4); Monocytes Absolute Auto 0.4 K/mm3 (0.1-0.6); Monocytes Percent Auto 4.8 % (2.6-8.5); Neutrophils Absolute Auto 5.6 K/mm3 (1.3-6.7); Neutrophils Percent Auto 63.9 % (45.5-73.1); Platelet Count Result 339 k/mm3 (150-375); Red Blood Count 4.11 M/mm3 (4.2-5.4); White Blood Count 8.8 K/mm3 (4.5-10.0)
[2022-05-03 14:15] LABS: Alanine Aminotransferase 17 U/L (6-35); Albumin Level 3.7 g/dL (3.5-5.1); Alkaline Phosphatase 123 U/L (38-126); Anion Gap 6 mmol/L (8-16); Aspartate Amino Transferase 26 U/L (14-36); Bilirubin,Total 0.7 mg/dL (0.2-1.3); Blood Urea Nitrogen 33 mg/dL (7-17); Calcium 8.8 mg/dL (8.4-10.2); Carbon Dioxide 24 mmol/L (22-30); Chloride 100 mmol/L (98-107); Estimated CRCL calculation 7 ml/min; Estimated Glomerular Filt Rate 5; Glucose 260 mg/dL (65-110); Potassium 4.7 mmol/L (3.4-5.0); Sodium 130 mmol/L (137-145)
--- NOTE | 2022-05-03 15:15 | PC.NURSE ---
PT a difficult stick. Unable to use right arm due to an old fistual per pt. RN was able to obtain a 22G in the lower arm. CT called asking for a larger gauge needle. farm contractor and Maria M SALEH using US to locate a IV using a larger gauge at this time.
[2022-05-03] MEDS: ASPIRIN 81 MG CHEWABLE TABLET 324 MG PO (15:21)
[2022-05-03 15:33] LABS: Partial Thromboplastin Time 30.1 SECONDS (22.3-36.8)
--- NOTE | 2022-05-03 15:52 | PC.NURSE ---
2 RNs unsuccessful with US IV attempts. Attempting line with 3rd RN with US
--- NOTE | 2022-05-03 16:29 | PC.NURSE ---
A 20 G IV was able to be obtained. CT scan made aware. CT also aware that the head setter said it would be ok to do a CTA per Dr. Lofton.
[2022-05-03 18:10] LABS: Hepatitis B Surface Antigen Negative (Negative)
[2022-05-03 18:15] LABS: Hepatitis B Core IgM Result Negative (Negative)
[2022-05-03 18:28] LABS: Hepatitis B Surface Anti Res Positive
--- NOTE | 2022-05-03 18:36 | ADMGEN ---
This patient, Bakari Smith, was admitted to IMU Room 200-01 on 05/03/22 at 1730. Patient/family oriented to hospital policies and general routines including ID bracelet, bed and alarms, visiting hours, pain management, procedures, bathroom and other care routines, personal items, smoking policy, room service/diet, and visiting hours. Information on how to activate the Rapid Response Team has been discussed. Patient/Family are encouraged to report perceived risks to care and to ask questions if they do not understand what they are told or what they should do.
--- NOTE | 2022-05-03 18:41 | PM.IMHP ---
H&P: HPI History of Present Illness Date/Time: 05/03/22 18:41 Chief Complaint: Headache Narrative: This is a 42-year-old female patient who has a history of end-stage renal disease and performs peritoneal dialysis daily. The patient came to the emergency room with complaints of left frontal lobe headache. She also had intense nausea and vomiting. She has had some generalized weakness but denied any focal weakness. The patient took Excedrin at home with no significant improvement. Head and neck CTA read as no significant abnormality seen. Head CT small region of decreased attenuation at the left occipital lobe suspicious for relatively recent, potentially acute, infarct which is new since 12/27/2021. The patient was started on an aspirin. She was given Dilaudid, Compazine, Benadryl and hydralazine for her headache. The patient stated that her headache is now resolved. H&H is 11.7 and 36.6. BUN 33 and creatinine 10.9. glucose is 260. Nephrology and neurology above been consulted. The patient is being admitted to inpatient status on the date of service of 05/03/2022. Review of Systems Review of Systems: See HPI All systems reviewed & are unremarkable except as noted in HPI and below Constitutional: Constitutional: Reports as per HPI and Reports no additional constitutional complaints Eyes: Eyes: Reports as per HPI and Reports no additional eye complaints ENT: Reports system reviewed and no additional complaints, except as documented and Reports Normal hearing present Cardiovascular: Cardiovascular: Reports no additional cardiovascular complaints Respiratory: Respiratory: Reports no additional respiratory complaints and Reports no additional respiratory complaints Gastrointestinal: Gastrointestinal: Reports as per HPI and Reports no additional gastrointestinal complaints Musculoskeletal: Musculoskeletal: Reports no additional musculoskeletal complaints Integumentary/Breasts: Skin/Breast: Reports system reviewed and no additional complaints, except as docu and Reports as per HPI Neurologic: Reports system reviewed and no additional complaints, except as documented, Reports as per HPI and Reports Normal hearing present Psychiatric: Psychiatric: Reports no additional psychiatric complaints and Reports as per HPI Endocrine: Endocrine: Reports no additional endocrine complaints Hematologic/Lymphatic: Hematologic/Lymphatic: Reports no additional hematologic/lymphatic complaints Allergic/Immunologic: Allergic/Immunologic: Reports no additional allergic/immunologic complaints PMFSH Past Medical History Medical History Arthritis Right wrist left knee Chronic kidney disease, stage 5 CKD (chronic kidney disease) stage 4, GFR 15-29 ml/min Diabetes Type 2 insulin-dependent Diverticulitis Dysphagia, oropharyngeal Erythropoietin deficiency anemia Gastroesophageal reflux Hypertension Irritable bowel syndrome Morbid obesity Obesity (BMI 30-39.9) Peripheral neuropathy Pneumonia Pyuria Surgical History Surgical History Delivery by section X3 History of salpingo-oophorectomy History of tubal ligation Hx of appendectomy Hx of cholecystectomy Family History Family History Mother Diabetes mellitus Breast cancer Sibling History of blood clots Heart disease Sister has something wrong with her heart Father Hypertension Prostate carcinoma Social History Social History (Updated 05/03/22 @ 23:48 by Romina Kimble NP) Social History: Patient lives on her own. She has 3 children. She is single. Her oldest daughter is a durable power litigation attorney for healthcare. The patient desires to be a full code. Patient stated that she has 5 grandchildren and watches her granddaughter most of the time 1 of her daughters recently with a PE
[2022-05-04] VITALS (17 sets, daily range): BP systolic 154–164; BP diastolic 68–94; PULSE 76–91; RESP 14–20; TEMP 36.5–37.1; O2SAT 97–100
--- NOTE | 2022-05-04 00:18 | PC.NURSE ---
Daylight Savings Time For Daylight Savings Time Ending in the Fall - Clocks are moved back. For Daylight Savings Time Beginning in the Spring - Clocks are moved ahead. For [facility], the time of change occurs at 0200 hrs. Time is taken from the windows server support technician. This entry on the patient's chart recognizes the change in time reflected during documentation. Example: 2 entries for vital signs may be charted for 0200 hrs.
[2022-05-04 00:29] LABS: Glucose Point of Care 371 mg/dl (65-105)
[2022-05-04] MEDS: INSULIN GLARGINE (*BKC) 100 UNITS/ML 10 UNITS SUB-Q ×2 (00:51→18:11)
[2022-05-04] MEDS: rOPINIRole HCL 0.25 MG TABLET PO ×2 (00:52→20:12)
[2022-05-04 04:53] LABS: Basophils Percent Auto 0.4 % (0.2-1.2); Eosinophils Absolute Auto 0.2 K/mm3 (0-0.3); Eosinophils Percent Auto 2.2 % (0-4.4); Hematocrit 32.8 % (37.0-47.0); Hemoglobin 10.1 g/dL (12.0-15.0); Immature Granulocyte Absolute 0.05 K/mm3 (0.00-0.031); Immature Granulocyte Percent A 0.5 % (0-0.5); Lymphocytes Absolute Auto 2.38 K/mm3 (0.9-3.2); Lymphocytes Percent Auto 25.8 % (18.3-44.2); Mean Corpuscular HGB Conc 30.8 g/dl (32-36); Mean Corpuscular Hemoglobin 27.4 pg (26-34); Mean Corpuscular Volume 88.9 fl (80-100); Mean Platelet Volume 9.2 fl (7.4-10.4); Monocytes Absolute Auto 0.6 K/mm3 (0.1-0.6); Monocytes Percent Auto 6.2 % (2.6-8.5); Neutrophils Percent Auto 64.9 % (45.5-73.1); Platelet Count Result 291 k/mm3 (150-375); Red Blood Count 3.69 M/mm3 (4.2-5.4); Red Cell Distribution Width 14.2 % (11.5-14.5); White Blood Count 9.2 K/mm3 (4.5-10.0)
[2022-05-04 05:06] LABS: Alanine Aminotransferase 14 U/L (6-35); Albumin Level 3.1 g/dL (3.5-5.1); Alkaline Phosphatase 105 U/L (38-126); Anion Gap 6 mmol/L (8-16); Aspartate Amino Transferase 15 U/L (14-36); Bilirubin,Total 0.4 mg/dL (0.2-1.3); Blood Urea Nitrogen 32 mg/dL (7-17); Calcium 8.4 mg/dL (8.4-10.2); Carbon Dioxide 26 mmol/L (22-30); Chloride 101 mmol/L (98-107); Estimated CRCL calculation 6 ml/min; Estimated Glomerular Filt Rate 4; Glucose 344 mg/dL (65-110); Potassium 3.7 mmol/L (3.4-5.0); Sodium 133 mmol/L (137-145)
[2022-05-04 05:07] LABS: Lactic Acid Reflex 1.2 mmol/L (0.7-2.0)
[2022-05-04 05:30] LABS: Hemoglobin A1C 8.2 % (<5.7)
[2022-05-04 07:55] LABS: Glucose Point of Care 244 mg/dl (65-105)
--- NOTE | 2022-05-04 08:00 | ECG_ITS ---
Measurements Intervals [place] Rate: 77 P: 56 NH: 142 QRS: 11 QRSD: 84 T: 59 QT: 398 QTc: 450 Interpretive Statements SINUS RHYTHM DELAYED PRECORDIAL R/S TRANSITION BORDERLINE ST-T WAVE ABNORMALITY- INF/HIGH LAT LEADS BASELINE ARTIFACT- V6 BORDERLINE ECG COMPARED TO ECG 09/19/2021 22:05:09 T-WAVE ABNORMALITY NOW PRESENT Electronically Signed On 05-04-2022 8:00:13 CDT by Tomasz Scott D.O.
[2022-05-04] MEDS: lisinopriL 20 MG TABLET PO (09:02)
[2022-05-04] MEDS: hydrALAZINE HCL 50 MG TABLET 100 MG PO ×2 (09:03→18:08)
[2022-05-04] MEDS: CALCIUM CARBONATE (TUMS) 500 MG (200 MG ELEMENTAL) 400 MG PO ×3 (09:03→18:08)
[2022-05-04] MEDS: ASPIRIN 81 MG CHEWABLE TABLET PO (09:03)
[2022-05-04] MEDS: INSULIN ASPART (*BKC) 100 UNITS/ML SUB-Q ×2 (09:04→14:38)
--- NOTE | 2022-05-04 10:00 | PM.CNNEP ---
Assessment and Plan Assessment and plan (1) End stage renal disease: Code(s): N18.6 - End stage renal disease Status: Acute Assessment and Plan: the patient is on peritoneal dialysis. Her volume status looks okay. Her potassium is good (2) Headache: Code(s): R51.9 - Headache, unspecified Status: Acute Assessment and Plan: the patient had headaches last night. This her better now. MRI is pending. This is an exploration of the attenuation seen on the CT of the brain without contrast. (3) Hypertension: Code(s): I10 - Essential (primary) hypertension Status: Chronic Assessment and Plan: The patient's blood pressure was very high last night and has come down today. Will see how the blood pressures do during the day. (4) Diabetes: Code(s): E11.9 - Type 2 diabetes mellitus without complications Status: Chronic Assessment and Plan: The patient is on Accu-Cheks and sliding-scale insulin. (5) Erythropoietin deficiency anemia: Code(s): D63.1 - Anemia in chronic kidney disease Status: Acute Assessment and Plan: The patient's hemoglobin is 10.1. It was 11.7 last night. She generally ranges with a relatively high hemoglobin. Hold off on EPO for now unless it trends down words. (6) Renal osteodystrophy: Code(s): N25.0 - Renal osteodystrophy Status: Acute Assessment and Plan: Will check a phosphorus level in the morning. History of Present Illness Reason for Consult Consult date: 05/04/22 Chief Complaint Chief complaint: Headache, CVA, HTN History of Present Illness Narrative: Bakari is a very pleasant 42-year-old lady who has multiple medical problems including end-stage renal disease on peritoneal dialysis nightly, diabetes, hypertension, anemia, renal osteodystrophy, high body mass index, irritable bowel syndrome, GERD, diverticulosis, arthritis. The patient came in the hospital because she had severe headache with nausea and vomiting. This has been going on for a few hours. On arrival to the ER she had a CT of the brain without contrast which showed an attenuated lesion. She had a CTA which showed normal vessels. She has an MRI which has been done but not read yet. She says she is much better today. She did not have any tingling, numbness, or weakness on 1 side or the other. No facial weakness either. She has been doing pretty well on her dialysis. However she always have some abdominal discomfort when the fluid is in and is hoping to switch to hemodialysis at some point. They are arranging for her to get a fistula. She has not had any trouble with the dialysis. The fluid has been clear in the flows are good. Her blood pressure at home . It was high last night when she had the severe headache but has come down with improved pain control. Review of Systems Constitutional: Constitutional: Reports no additional constitutional complaints Eyes: Eyes: Reports no additional eye complaints ENT: Reports system reviewed and no additional complaints, except as documented Cardiovascular: Cardiovascular: Reports no additional cardiovascular complaints Respiratory: Respiratory: Reports no additional respiratory complaints Gastrointestinal: Gastrointestinal: Reports no additional gastrointestinal complaints Genitourinary: Genitourinary: Reports no additional female genitourinary complaints Musculoskeletal: Musculoskeletal: Reports no additional musculoskeletal complaints Integumentary/Breasts: Skin/Breast: Reports system reviewed and no additional complaints, except as docu Neurologic: Reports system reviewed and no additional complaints, except as documented Psychiatric: Psychiatric: Reports no additional psychiatric complaints Endocrine: Endocrine: Reports no additional endocrine complaints [facility] Past Medical History Medical History
--- NOTE | 2022-05-04 10:15 | PM.PNNEP ---
Subjective Date/time seen: 05/04/22 10:15 Interval history: Patient is on dialysis and tolerating well. Fluid is clear and flows are good. She had less abdominal discomfort last night as compared to the situation at home. The fluid volumes are the same interestingly. She was seen at 9:30 a.m.. Objective Data Vital Signs Vital Signs: Vital Signs - 24 hr 05/03/22 13:28 05/03/22 14:32 05/03/22 15:45 Temperature 98 F Pulse Rate 86 87 77 Respiratory Rate 28 H 21 H 11 L Blood Pressure 157/97 H 184/89 H Pulse Oximetry 100 100 Oxygen Delivery Room Air 05/03/22 16:00 05/03/22 16:48 05/03/22 17:57 Temperature 97.4 F L Pulse Rate 77 90 87 Respiratory Rate 14 20 20 Blood Pressure 181/91 H 158/93 H 198/82 H Pulse Oximetry 100 100 Oxygen Delivery 05/03/22 17:58 05/03/22 17:30 05/03/22 18:00 Temperature Pulse Rate 83 Respiratory Rate Blood Pressure 201/84 H Pulse Oximetry Oxygen Delivery Room Air 05/03/22 17:30 05/03/22 19:35 05/03/22 20:00 Temperature 96.8 F L 98.8 F Pulse Rate 82 80 80 Respiratory Rate 20 16 Blood Pressure 180/78 H 175/81 H Pulse Oximetry 100 Oxygen Delivery Room Air 05/03/22 20:48 05/03/22 23:39 05/03/22 20:00 Temperature 98.8 F Pulse Rate 85 80 Respiratory Rate 14 16 Blood Pressure 164/84 H 142/77 H Pulse Oximetry 99 100 Oxygen Delivery Room Air 05/03/22 20:00 05/03/22 20:00 05/03/22 22:00 Temperature Pulse Rate 79 85 Respiratory Rate Blood Pressure Pulse Oximetry Oxygen Delivery Room Air 05/04/22 00:00 05/04/22 01:48 05/04/22 00:00 Temperature Pulse Rate 85 76 85 Respiratory Rate 14 Blood Pressure Pulse Oximetry 99 Oxygen Delivery Room Air 05/04/22 00:00 05/04/22 04:00 05/04/22 04:00 Temperature Pulse Rate 78 Respiratory Rate Blood Pressure Pulse Oximetry Oxygen Delivery Room Air Room Air 05/04/22 04:00 05/04/22 04:00 05/04/22 05:24 Temperature 98.8 F Pulse Rate 79 79 81 Respiratory Rate 14 14 Blood Pressure 157/79 H Pulse Oximetry 100 100 Oxygen Delivery Room Air 05/04/22 07:31 05/04/22 08:00 05/04/22 08:00 Temperature 98.8 F 98.5 F Pulse Rate 81 84 84 Respiratory Rate 14 16 16 Blood Pressure 157/79 H 154/94 H Pulse Oximetry 100 100 Oxygen Delivery Room Air Intake/Output Intake/Output: Intake & Output 05/01/22 05/02/22 05/03/22 05/05/22 23:59 23:59 23:59 00:59 Intake Total 300 Output Total 1049 Balance -749 Meds/Results Medications: Active Medications Generic Name Dose Route Start Last Admin Trade Name Freq PRN Reason Stop Dose Admin Aspirin 81 mg 05/04/22 08:00 05/04/22 09:03 Aspirin 81 Mg Chewable Tablet PO 81 mg DAILY@0800 CHAYO Administration Bisacodyl 10 mg 05/03/22 23:46 Bisacodyl 10 Mg Suppository RECTAL QAM PRN Constipation Calcium Carbonate 400 mg 05/04/22 08:00 05/04/22 09:03 Calcium Carbonate (Tums) 500 Mg (200 Mg Elemental) PO 400 mg TIDWM CHAYO Administration Dextrose 12.5 gm 05/03/22 23:42 Dextrose 50% 25 Gm/50 Ml Syringe IV PUSH PRN PRN Hypoglycemia Protocol Docusate Sodium 100 mg 05/03/22 23:46 Docusate Sodium 100 Mg Capsule PO Q12H PRN Constipation Glucagon 1 mg 05/03/22 23:42 Glucagon For Inj 1 Mg Vial IM PRN PRN Hypoglycemia Protocol Glucose 15 gm 05/03/22 23:42 Glucose Oral Gel 15 Gm Of Glucse In 37.5 Gm Tube PO PRN PRN Hypoglycemia Protocol Hydralazine HCl 100 mg 05/04/22 09:00 05/04/22 09:03 Hydralazine Hcl 50 Mg Tablet PO 100 mg BID CHAYO Administration Dextrose 1,000 mls @ 100 mls/hr 05/03/22 23:42 Dextrose 5% 1,000 Ml IVPB PRN PRN Hypoglycemia Protocol Insulin Aspart 2 - 5 units 05/04/22 08:00 05/04/22 09:04 Insulin Aspart (*Bkc) 100 Units/Ml SUB-Q 2 units TIDWM CHAYO Administration Protocol Insulin Glargine 10 un
[2022-05-04 11:46] LABS: Glucose Point of Care 209 mg/dl (65-105)
--- NOTE | 2022-05-04 13:22 | PM.IMPN ---
Progress Note: A&P Assessment and Plan (1) Acute CVA (cerebrovascular accident): Code(s): I63.9 - Cerebral infarction, unspecified Status: Acute Assessment and Plan: The patient has no focal weakness. She is talking without difficulty moving all extremities. Her speech is clear and appropriate. The patient complained of some generalized weakness and headache otherwise she does not have any focal weakness. The patient was started on an aspirin. head CT with small region of decreased attenuation of the left except to lobe suspicious for relatively recent potentially acute infarct which is new since 12/27/2021 Head CTA no significant abnormality seen MRI with left occipital lobe small acute infarct Continue on aspirin Underlying diabetes on insulin Blood pressure control LDL goal of less than 70 Neurology consultation Further workup with echocardiogram Head and neck CTA with no significant abnormality Add atorvastatin 80 check lipid profile (2) Hypertension: Qualifiers: Hypertension type: unspecified Qualified Code(s): I10 - Essential (primary) hypertension Code(s): I10 - Essential (primary) hypertension Status: Acute Assessment and Plan: Continue with hydralazine and lisinopril. She used to be on labetalol in the past. Allow permissive hypertension but ultimate goal 130/80 (3) Headache: Qualifiers: Headache type: unspecified Code(s): R51.9 - Headache, unspecified Status: Acute Assessment and Plan: The patient was medicated in the emergency room with pain medication and her headache has resolved. (4) ESRD (end stage renal disease): Code(s): N18.6 - End stage renal disease Status: Acute Assessment and Plan: The patient has peritoneal dialysis nightly. The patient stated that she was supposed to get surgery to have a temporary dialysis catheter placed or a AV fistula because she no longer wants to do the peritoneal dialysis. Patient stated that her abdomen hurts most of the time. She also stated that as she feels distended and has a lot of fluid in her abdomen most the time. The patient stated that she would like to go to dialysis outpatient for hemodialysis. Nephrology on board (5) Diabetes: Code(s): E11.9 - Type 2 diabetes mellitus without complications Status: Chronic Assessment and Plan: The patient stated that she is not been any very well in that her blood sugars have been low. I explained to her that the dialysis could be making her low as well. For now will do Accu-Cheks AC and HS with sliding scale and hypoglycemic protocol. Plan chronic anemia Mild hyponatremia Type 2 diabetes A1c 8.2 Subjective Date/time seen: 05/04/22 13:22 Interval history: This is a 42-year-old female patient who has a history of end-stage renal disease and performs peritoneal dialysis daily.? The patient came to the emergency room with complaints of left frontal lobe headache.? She also had intense nausea and vomiting.? She has had some generalized weakness but denied any focal weakness.? The patient took Excedrin at home with no significant improvement.? Head and neck CTA read as no significant abnormality seen.? Head CT small region of decreased attenuation at the left occipital lobe suspicious for relatively recent, potentially acute, infarct which is new since 12/27/2021.? The patient was started on an aspirin.? She was given Dilaudid, Compazine, Benadryl and hydralazine for her headache.? The patient stated that her headache is now resolved.? H&H is 11.7 and 36.6.? BUN 33 and creatinine 10.9. glucose is 260.? Nephrology and neurology above been consulted.? The patient is being admitted to inpatient status on the date of service of 05/03/2022. 05/04/2022: Presented with headache. CT head with small region of decreased attenuation at the left occipital lobe suspicious for related least recent acute infarct. Was started on P
[2022-05-04 15:05] LABS: Cholesterol 138 mg/dL (0-200); HDL Direct 51 mg/dL; Triglycerides 99 mg/dL (<150)
[2022-05-04 15:15] LABS: LDL Cholesterol Direct 58 mg/dL
[2022-05-04 17:01] LABS: Glucose Point of Care 194 mg/dl (65-105)
[2022-05-04 19:56] LABS: Glucose Point of Care 210 mg/dl (65-105)
[2022-05-04] MEDS: ATORVASTATIN 40 MG TABLET 80 MG PO (20:12)
[2022-05-04] MEDS: DOCUSATE SODIUM 100 MG CAPSULE PO (20:19)
[2022-05-04] MEDS: BISACODYL 10 MG SUPPOSITORY RECTAL (20:20)
[2022-05-04] MEDS: ONDANSETRON INJ 4 MG/2 ML VIAL IV PUSH (23:09)
[2022-05-05] VITALS (11 sets, daily range): BP systolic 141–164; BP diastolic 75–80; PULSE 77–99; RESP 20; TEMP 36.3–36.9; O2SAT 99–100; BMI 35.0
--- NOTE | 2022-05-05 | ECHO_ITS ---
Patient Info Name: Bakari Smith Age: 42 years : 1980 Gender: Female Ht: 63 in Wt: 201 lbs BSA: 2.05 m2 HR: 77 bpm BP: 149 / 79 mmHg Heart Rhythm: Sinus Rhythm Technical Quality: Fair Exam Date: 05/05/2022 8:58 AM Exam Location: [facility] Pulmonary Patient Status: Inpatient Admit Date: 05/03/2022 Staff Ordering Physician: Boni Bowen MD [employer] Laborer: Domi Moraes RDCS Attending Provider: Oneida Batista DO Exam Type: CA echo doppler w bubble study Study Info Indications - STROKE Complete two-dimensional, color flow and Doppler transthoracic echocardiogram is performed with agitated saline. Contrast/Agitated Saline Contrast/Ag. Saline: Agitated Saline Amount: 20.00 ml Administered By: Jocelyn Moura RDCS Existing IV Access: Yes IV Access Condition: patent with no signs of infiltration Summary 1. Left ventricular chamber dimension is normal. 2. Left ventricular systolic function is normal, estimated at 65-70%. 3. There is moderately increased left ventricular wall thickness. 4. The left ventricular diastolic function is grade I diastolic dysfunction. 5. Right ventricular systolic function is normal. 6. Intact interatrial septum visualized by color flow and agitated saline imaging. Negative bubble study. 7. There is mild tricuspid valve regurgitation. Left Ventricle Left ventricular chamber dimension is normal. Left ventricular systolic function is normal, estimated at 65-70%. There is moderately increased left ventricular wall thickness. The left ventricular diastolic function is grade I diastolic dysfunction. Global longitudinal strain is abnormal at -14 %. Right Ventricle Right ventricular chamber dimension is normal. Right ventricular systolic function is normal. Left Atria Left atrial chamber dimension is normal. Right Atria Right atrial chamber dimension is normal. Atrial Septum Intact interatrial septum visualized by color flow and agitated saline imaging. Negative bubble study. Aortic Valve The aortic valve is not well visualized. There is no aortic valve stenosis. There is no aortic valve regurgitation. Pulmonic Valve The pulmonic valve is not well visualized. Mitral Valve The mitral valve has normal leaflets. There is no mitral valve stenosis. There is trace mitral valve regurgitation. Tricuspid Valve There is mild tricuspid valve regurgitation. Pericardium/Pleural There is no pericardial effusion. Aorta The aortic root size at the sinus of Valsalva is normal. Left Ventricular Outflow Tract Name Value Normal LVOT 2D LVOT Diameter 1.9 cm LVOT Doppler LVOT Peak Gradient 10 mmHg LVOT Mean Gradient 6 mmHg LVOT VTI 34 cm LVOT VTI/AV VTI Ratio 0.9 LVOT Stroke Volume 92 ml LVOT CO 6.7 l/min LVOT CI 3.3 l/min/m2 Pulmonic Valve
[2022-05-05 04:58] LABS: Albumin Level 3.2 g/dL (3.5-5.1); Anion Gap 7 mmol/L (8-16); Blood Urea Nitrogen 30 mg/dL (7-17); Calcium 9.1 mg/dL (8.4-10.2); Carbon Dioxide 29 mmol/L (22-30); Chloride 99 mmol/L (98-107); Estimated CRCL calculation 6 ml/min; Estimated Glomerular Filt Rate 4; Glucose 256 mg/dL (65-110); Phosphorus 5.4 mg/dL (2.5-4.5); Potassium 3.6 mmol/L (3.4-5.0); Sodium 135 mmol/L (137-145)
[2022-05-05] MEDS: ACETAMINOPHEN 500 MG TABLET 1000 MG PO (06:36)
[2022-05-05] MEDS: ONDANSETRON INJ 4 MG/2 ML VIAL IV PUSH (06:41)
[2022-05-05 07:59] LABS: Glucose Point of Care 160 mg/dl (65-105)
[2022-05-05] MEDS: ATORVASTATIN 40 MG TABLET 80 MG PO (08:15)
[2022-05-05] MEDS: CALCIUM CARBONATE (TUMS) 500 MG (200 MG ELEMENTAL) 400 MG PO ×2 (08:15→12:45)
[2022-05-05] MEDS: ASPIRIN 81 MG CHEWABLE TABLET PO (08:16)
[2022-05-05] MEDS: lisinopriL 20 MG TABLET PO (08:16)
[2022-05-05] MEDS: hydrALAZINE HCL 50 MG TABLET 100 MG PO (08:16)
--- NOTE | 2022-05-05 09:06 | PM.PNNEP ---
Progress Note: A&P Assessment and Plan (1) End stage renal disease: Code(s): N18.6 - End stage renal disease Status: Acute Assessment and Plan: the patient is on peritoneal dialysis. Her volume status looks okay. Her potassium is good continue same script (2) Headache: Code(s): R51.9 - Headache, unspecified Status: Acute Assessment and Plan: the patient had headaches last night. This her better now. MRI showed small acute infarct left occiptal lobe. will need an echo since in posterior circulation. last one in 2020 (3) Hypertension: Code(s): I10 - Essential (primary) hypertension Status: Chronic Assessment and Plan: The patient's blood pressure is better today. permissive htn since she had a stroke. goal 130 to 160 (4) Diabetes: Code(s): E11.9 - Type 2 diabetes mellitus without complications Status: Chronic Assessment and Plan: The patient is on Accu-Cheks and sliding-scale insulin. (5) Erythropoietin deficiency anemia: Code(s): D63.1 - Anemia in chronic kidney disease Status: Acute Assessment and Plan: The patient's hemoglobin is 10.1. It was 11.7 last night. She generally ranges with a relatively high hemoglobin. check cbc tomorrow (6) Renal osteodystrophy: Code(s): N25.0 - Renal osteodystrophy Status: Acute Assessment and Plan: phos good at 5.4 Subjective Date/time seen: 05/05/22 09:06 Interval history: [atient is feeling about the same. some hunger pains. she didn't eat supper. on PD and alfredito it well. volume status looks okay. labs okay. fluid clear. no alarms overnight. Review of Systems Cardiovascular: Cardiovascular: Reports no additional cardiovascular complaints Respiratory: Respiratory: Reports no additional respiratory complaints Gastrointestinal: Gastrointestinal: Reports no additional gastrointestinal complaints Genitourinary: Genitourinary: Reports no additional female genitourinary complaints Exam Narrative: WDWN in NAD skin no rash head ncat lungs clear cor reg no rub abd BS+ nontender and soft ext no edema. Objective Data Vital Signs Vital Signs: Vital Signs - 24 hr 05/04/22 10:00 05/04/22 12:00 05/04/22 12:00 Temperature 97.9 F Pulse Rate 85 90 Respiratory Rate 16 Blood Pressure 156/72 H Pulse Oximetry 100 Oxygen Delivery Room Air 05/04/22 12:00 05/04/22 14:00 05/04/22 16:00 Temperature 98.3 F Pulse Rate 91 88 85 Respiratory Rate 16 Blood Pressure 160/89 H Pulse Oximetry 100 Oxygen Delivery 05/04/22 16:00 05/04/22 18:00 05/04/22 16:00 Temperature Pulse Rate 85 86 Respiratory Rate Blood Pressure Pulse Oximetry Oxygen Delivery Room Air 05/04/22 19:05 05/04/22 19:59 05/04/22 20:00 Temperature 98.3 F 97.7 F Pulse Rate 85 87 87 Respiratory Rate 16 20 20 Blood Pressure 160/89 H 154/68 H Pulse Oximetry 100 100 Oxygen Delivery Room Air Room Air 05/04/22 20:00 05/04/22 23:35 05/04/22 23:41 Temperature 97.8 F Pulse Rate 84 84 Respiratory Rate 20 20 Blood Pressure 164/71 H Pulse Oximetry 97 97 Oxygen Delivery Room Air Room Air 05/04/22 20:00 05/04/22 22:00 05/05/22 00:00 Temperature Pulse Rate 90 85 82 Respiratory Rate Blood Pressure Pulse Oximetry Oxygen Delivery 05/05/22 01:22 05/05/22 00:00 05/05/22 04:00 Temperature Pulse Rate 99 Respiratory Rate Blood Pressure Pulse Oximetry Oxygen Delivery Room Air Room Air 05/05/22 04:00 05/05/22 04:00 05/05/22 04:00 Temperature 97.9 F Pulse Rate 90 90 89 Respiratory Rate 20 20 Blood Pressure 149/79 H Pulse Oximetry 99 99 Oxygen Delivery Room Air 05/05/22 05:26 05/05/22 08:00 Temperature 98.4 F Pulse Rate 82 82 Respiratory Rate 20 Blood Pressure 141/75 H Pulse Oximetry 100 Oxygen Delivery Intake/Output Intake/Output: Intake
--- NOTE | 2022-05-05 10:36 | WPDNEURCNPN ---
Assessment and Plan Assessment and plan (1) Acute stroke due to ischemia: Code(s): I63.9 - Cerebral infarction, unspecified Status: Acute (2) Hypertension: Code(s): I10 - Essential (primary) hypertension Status: Chronic (3) Diabetes: Code(s): E11.9 - Type 2 diabetes mellitus without complications Status: Chronic (4) CKD (chronic kidney disease) stage 4, GFR 15-29 ml/min: Code(s): N18.4 - Chronic kidney disease, stage 4 (severe) Status: Acute Plan Bakari Smith is a 42 year old female with a history of CKD, HTN, DM who presented to [facility] due to concerns for headache. She was found to have an acute infarct in the left occipital region. Etiology is unclear. Patient did not have any stenosis on the CTA. She does have poorly controlled diabetes but LDL was within normal range. - Surface echocardiogram is pending - Check hypercoagulability labs -- ordered - Start aspirin 81mg daily - Already started on Lipitor 80mg daily Consult date: 05/05/22 Reason for consult: Acute stroke HPI: Bakari Smith is a 42 year old female with a history of CKD, HTN, DM who presented to [facility] ED due to concerns for headache. Patient reported acute onset headache as well as nausea/vomiting and generalized weakness. Her blood pressure in the ED was in the 160s systolic. She was given a dose of Compazine, Benadryl, and Dilaudid which did help the headache. However, her CT head showed an area of hypoattenuation in the left occipital region, that is concerning for acute infarct. CTA brain/carotid was also ordered which was normal. She does not take any blood thinner and is not on any cholesterol medications. Her LDL was from admission is 58. Her A1c from this admission is 8.2. MRI brain confirmed acute infarct in the left occipital lobe. Patient reports feeling well. She denies any complaints other than heartburn. She did tell me that her daughter at age 19 due to a blood clot in her heart . Patient's sister also of similar circumstances at age 39. Patient says that some family members have had genetic testing done for this clotting disorder but she never has. Review of Systems Constitutional: Constitutional: Reports no additional constitutional complaints Eyes: Eyes: Reports no additional eye complaints ENT: Reports system reviewed and no additional complaints, except as documented Cardiovascular: Cardiovascular: Reports no additional cardiovascular complaints Respiratory: Respiratory: Reports no additional respiratory complaints Gastrointestinal: Gastrointestinal: Reports heartburn Genitourinary: Genitourinary: Reports no additional female genitourinary complaints Musculoskeletal: Musculoskeletal: Reports no additional musculoskeletal complaints Integumentary/Breasts: Skin/Breast: Reports system reviewed and no additional complaints, except as docu Neurologic: Reports as per HPI Psychiatric: Psychiatric: Reports no additional psychiatric complaints PMFSH Past Medical History Medical History Arthritis Right wrist left knee Chronic kidney disease, stage 5 CKD (chronic kidney disease) stage 4, GFR 15-29 ml/min Diabetes Type 2 insulin-dependent Diverticulitis Dysphagia, oropharyngeal Erythropoietin deficiency anemia Gastroesophageal reflux Hypertension Irritable bowel syndrome Morbid obesity Obesity (BMI 30-39.9) Peripheral neuropathy Pneumonia Pyuria Surgical History Surgical History Delivery by section X3 History of salpingo-oophorectomy History of tubal ligation Hx of appendectomy Hx of cholecystectomy Family History Family History Mother Diabetes mellitus Breast cancer Sibling History of blood clots Heart disease Sister has something wrong with her heart Father Hyperten
--- NOTE | 2022-05-05 11:17 | ECG_ITS ---
Rate 82 CO 134 QRSd 86 QT 399 QTc 468 --Goltry-- P 29 QRS -9 T 31 SINUS RHYTHM BORDERLINE R WAVE PROGRESSION, ANTERIOR LEADS BORDERLINE ST-T WAVE ABNORMALITY- INF/HIGH LAT LEADS BASELINE ARTIFACT- V5 BORDERLINE ECG COMPARED TO ECG 05/04/2022 07:41:11 NO SIGNIFICANT CHANGES Electronically Signed On 05-07-2022 10:41:00 CDT by Tomasz FELIX
--- NOTE | 2022-05-05 11:51 | PC.NURSE ---
Patient complaining of CP and N/V. Patient states it feels like acid. STAT EKG, Troponin, Dr. Del Real notified. Pepcid started
[2022-05-05 12:03] LABS: Glucose Point of Care 204 mg/dl (65-105)
[2022-05-05 12:16] LABS: Troponin I 0.021 ng/mL (0.000-0.034)
[2022-05-05] MEDS: INSULIN ASPART (*BKC) 100 UNITS/ML SUB-Q (12:46)
--- NOTE | 2022-05-05 15:33 | PM.DS ---
DS: Admitting Diagnosis Discharge Date 05/05/2022 Admitting Diagnosis Headache DS: Discharge Diagnosis Discharge Diagnosis (1) Acute CVA (cerebrovascular accident): Code(s): I63.9 - Cerebral infarction, unspecified Status: Acute Assessment and Plan: The patient has no focal weakness. She is talking without difficulty moving all extremities. Her speech is clear and appropriate. The patient complained of some generalized weakness and headache otherwise she does not have any focal weakness. The patient was started on an aspirin. head CT with small region of decreased attenuation of the left except to lobe suspicious for relatively recent potentially acute infarct which is new since 12/27/2021 Head CTA no significant abnormality seen MRI with left occipital lobe small acute infarct Continue on aspirin Underlying diabetes on insulin Blood pressure control LDL goal of less than 70 Neurology consultation Further workup with echocardiogram Head and neck CTA with no significant abnormality Add atorvastatin 80 check lipid profile (2) Hypertension: Qualifiers: Hypertension type: unspecified Qualified Code(s): I10 - Essential (primary) hypertension Code(s): I10 - Essential (primary) hypertension Status: Acute Assessment and Plan: Continue with hydralazine and lisinopril. She used to be on labetalol in the past. Allow permissive hypertension but ultimate goal 130/80 (3) Headache: Qualifiers: Headache type: unspecified Code(s): R51.9 - Headache, unspecified Status: Acute Assessment and Plan: The patient was medicated in the emergency room with pain medication and her headache has resolved. (4) ESRD (end stage renal disease): Code(s): N18.6 - End stage renal disease Status: Acute Assessment and Plan: The patient has peritoneal dialysis nightly. The patient stated that she was supposed to get surgery to have a temporary dialysis catheter placed or a AV fistula because she no longer wants to do the peritoneal dialysis. Patient stated that her abdomen hurts most of the time. She also stated that as she feels distended and has a lot of fluid in her abdomen most the time. The patient stated that she would like to go to dialysis outpatient for hemodialysis. Nephrology on board (5) Diabetes: Code(s): E11.9 - Type 2 diabetes mellitus without complications Status: Chronic Assessment and Plan: The patient stated that she is not been any very well in that her blood sugars have been low. I explained to her that the dialysis could be making her low as well. For now will do Accu-Cheks AC and HS with sliding scale and hypoglycemic protocol. Plan chronic anemia Mild hyponatremia Type 2 diabetes A1c 8.2 DS: Summary Hospital Course Reason for hospitalization: Chief Complaint: Headache Narrative: This is a 42-year-old female patient who has a history of end-stage renal disease and performs peritoneal dialysis daily.? The patient came to the emergency room with complaints of left frontal lobe headache.? She also had intense nausea and vomiting.? She has had some generalized weakness but denied any focal weakness.? The patient took Excedrin at home with no significant improvement.? Head and neck CTA read as no significant abnormality seen.? Head CT small region of decreased attenuation at the left occipital lobe suspicious for relatively recent, potentially acute, infarct which is new since 12/27/2021.? The patient was started on an aspirin.? She was given Dilaudid, Compazine, Benadryl and hydralazine for her headache.? The patient stated that her headache is now resolved.? H&H is 11.7 and 36.6.? BUN 33 and creatinine 10.9. glucose is 260.? Nephrology and neurology above been consulted.? The patient is being admitted to inpatient status on the date of service of 05/03/2022. Hospital Course: The patient has no focal weakness.? She is ozzie
[2022-05-08 21:05] LABS: Anti Cardio Antibody IgM <2.0 MPL-U/mL (<20.0); Anti Cardiolipin Antibody IgA <2.0 APL-U/mL (<20.0); Anti Cardiolipin Antibody IgG 10.5 GPL-U/mL (<20.0)
[2022-05-08 22:19] LABS: Lupus dRVVT Screen 44 sec (<=45); PTT-LA Screen 32 sec (<=40)
[2022-05-12 09:42] LABS: PS/PT AB IgG <9
[2022-05-12 09:43] LABS: PS/PT AB IgM <9
[2022-05-12 13:47] LABS: Factor V (Leiden) Mutation NEGATIVE
== END 2022-05-05 16:50 | disposition home or self-care (01) | DRG 64 ==
LOC: ANHED 13:55 → ANHIMU 17:13
PROVIDERS: Internal Medicine; Internal Medicine Nephrology; Nurse Practitioner; Student in an Organized Health Care Education/Training Program; Admitting Provider Student in an Organized Health Care Education/Training Program; Emergency Provider Emergency Medicine; PCP Registered Nurse; Visit Provider Family Medicine
DX: I63.9 Cerebral infarction, unspecified (principal); N18.6 End stage renal disease; I12.0 Hypertensive chronic kidney disease with stage 5 chronic kidney disease or end stage renal disease; E87.1 Hypo-osmolality and hyponatremia; E11.22 Type 2 diabetes mellitus with diabetic chronic kidney disease; D63.1 Anemia in chronic kidney disease; Z99.2 Dependence on renal dialysis
CPT/HCPCS: 36415; 70450; 70496; 70498; 70551; 80053; 80061; 80069; 81240; 81241; 82948; 83036; 83605; 83735; 84443; 84484; 85025; 85303; 85306; 85610; 85613; 85730; 86146; 86705; 86706; 87340; 90945; 93005; 93306; 96374; 96375; 99285; A9270; J0780; J1170; J1200; J1815; J2405; Q9967

== ENCOUNTER 2022-06-14 20:06 | Inpatient (IN) | payer MEDICARE, MEDICAID, SELFPAY ==
[2022-06-14] VITALS (14 sets, daily range): BP systolic 164–187; BP diastolic 72–88; PULSE 73–88; RESP 13–22; TEMP 36.3; O2SAT 100
--- NOTE | ~2022-06-14 | CT_ITS ---
EXAMINATION: CT abdomen pelvis wo con DATE: 06/14/2022 22:02 INDICATION: Abdominal pain TECHNIQUE: Computed tomography (CT) of the abdomen and pelvis was performed without intravenous contr ast. The dose-length product (DLP) was 1125.19 mGy-cm. Automated exposure control and iterative recon struction technique were employed. COMPARISON: 09/19/2021 FINDINGS: Minimal dependent atelectasis is present in the lung bases. The heart size is normal. The l iver, spleen, pancreas, and adrenal glands are normal. The gallbladder is surgically absent. There is mild atrophy of the kidneys. There is a 1.4 cm cyst of the right kidney upper pole. A small volume o f abdominal or pelvic ascites is consistent with peritoneal dialysis. The peritoneal dialysis cathete r coils in the right lower quadrant. No pathologically enlarged abdominal or pelvic lymph nodes are i dentified. No free intraperitoneal gas or evidence of bowel obstruction. IMPRESSION: 1. Changes consistent with peritoneal dialysis. No acute findings of the abdomen or pelvis. Reviewed, dictated and finalized at location A. IMPRESSION: 1. Changes consistent with peritoneal dialysis. No acute findings of the abdome n or pelvis.
--- NOTE | ~2022-06-14 | XR_ITS ---
EXAMINATION: XR abdomen/kub 1V INDICATION: Abdominal pain TECHNIQUE: Supine views of the abdomen were obtained on 2 radiographs. COMPARISON: CT of the same date FINDINGS: The bowel gas pattern is normal. There are no dilated loops of bowel. A peritoneal dialysis catheter coils in the right lower quadrant. The visualized lung bases are clear. Cholecystectomy cli ps are noted. IMPRESSION: 1. No radiographic correlate for the patient's symptoms. Reviewed, dictated and finalized at location A.
--- NOTE | 2022-06-14 22:56 | ED.GENADULT ---
HPI - General Adult General Chief complaint: Abdominal Pain Stated complaint: Abd pain Time Seen by Provider: 06/14/22 21:00 History of Present Illness HPI narrative: 42-year-old female history of ESRD, still makes urine, on peritoneal dialysis, diabetes, hypertension presented with abdominal pain. Per patient for the last 4 days she has been having intermittent right-sided abdominal pain, associated with mild bilious nonbloody emesis. She denied dysuria, hematuria, fevers, chills, chest pain, shortness of breath, hematochezia, melena, hematemesis. Past medical history: ESRD, peritoneal dialysis, diabetes, hypertension, diverticulitis Past surgical history: Peritoneal dialysis, appendectomy Related Data Home Medications Medication Instructions Recorded Confirmed hydralazine 100 mg tablet 200 mg PO BID 04/26/21 05/03/22 calcium carbonate 200 mg calcium 1,000 mg PO TIDWM 05/03/22 05/03/22 (500 mg) chewable tablet (Tums) insulin aspart U-100 100 unit/mL 20 unit subcut BID 05/03/22 05/03/22 (3 mL) subcutaneous pen (Novolog FlexPen U-100 Insulin aspart) insulin glargine 100 unit/mL (3 10 unit subcut QPM 05/03/22 05/03/22 mL) subcutaneous pen (Lantus Solostar U-100 Insulin) Allergies Allergy/AdvReac Type Severity Reaction Status Date / Time metronidazole Allergy Intermediate Rash Verified 05/05/22 07:45 omeprazole Allergy Intermediate Rash Verified 05/05/22 07:45 Review of Systems Review of Systems: See HPI [facility] Past Medical History Medical History Arthritis Right wrist left knee Chronic kidney disease, stage 5 CKD (chronic kidney disease) stage 4, GFR 15-29 ml/min Diabetes Type 2 insulin-dependent Diverticulitis Dysphagia, oropharyngeal Erythropoietin deficiency anemia Gastroesophageal reflux Hypertension Irritable bowel syndrome Morbid obesity Obesity (BMI 30-39.9) Peripheral neuropathy Pneumonia Pyuria Surgical History Surgical History Delivery by section X3 History of salpingo-oophorectomy History of tubal ligation Hx of appendectomy Hx of cholecystectomy Family History Family History Mother Diabetes mellitus Breast cancer Sibling History of blood clots Heart disease Sister has something wrong with her heart Father Hypertension Prostate carcinoma Social History Social History Social History: Patient lives on her own. She has 3 children. She is single. Her oldest daughter is a durable power distributing clerk for healthcare. The patient desires to be a full code. Patient stated that she has 5 grandchildren and watches her granddaughter most of the time 1 of her daughters recently with a PE Code status full code Smoking status: Never smoker Second hand tobacco smoke exposure: Yes Alcohol intake: never Substance use type: marijuana Lack of Transportation: No Lack of Food: Never True Current Housing: I Have Housing Concerned About Future Housing: No Difficulty Paying Gas/Electric Bills: YES Difficulty Paying for Meds: No Currently Unemployed: YES Education: Don't Know Difficulty w/ Childcare or Family Care: No Living arrangements: alone Occupation/Education: other Additional occupation/education comments: 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
[2022-06-14 23:01] LABS: Basophils Absolute Auto 0.1 K/mm3 (0.0-0.1); Basophils Percent Auto 0.5 % (0.2-1.2); Eosinophils Absolute Auto 0.4 K/mm3 (0-0.3); Eosinophils Percent Auto 3.7 % (0-4.4); Hematocrit 32.7 % (37.0-47.0); Hemoglobin 9.9 g/dL (12.0-15.0); Immature Granulocyte Absolute 0.05 K/mm3 (0.00-0.031); Immature Granulocyte Percent A 0.5 % (0-0.5); Lymphocytes Absolute Auto 1.92 K/mm3 (0.9-3.2); Lymphocytes Percent Auto 19.9 % (18.3-44.2); Mean Corpuscular HGB Conc 30.3 g/dl (32-36); Mean Corpuscular Hemoglobin 27.3 pg (26-34); Mean Corpuscular Volume 90.3 fl (80-100); Mean Platelet Volume 9.4 fl (7.4-10.4); Monocytes Absolute Auto 0.7 K/mm3 (0.1-0.6); Monocytes Percent Auto 6.9 % (2.6-8.5); Neutrophils Absolute Auto 6.6 K/mm3 (1.3-6.7); Neutrophils Percent Auto 68.5 % (45.5-73.1); Platelet Count Result 334 k/mm3 (150-375); Red Blood Count 3.62 M/mm3 (4.2-5.4); Red Cell Distribution Width 13.8 % (11.5-14.5); White Blood Count 9.7 K/mm3 (4.5-10.0)
[2022-06-14 23:12] LABS: Alanine Aminotransferase 17 U/L (6-35); Alkaline Phosphatase 122 U/L (38-126); Anion Gap 6 mmol/L (8-16); Aspartate Amino Transferase 25 U/L (14-36); Bilirubin,Total 0.4 mg/dL (0.2-1.3); Blood Urea Nitrogen 47 mg/dL (7-17); Calcium 8.2 mg/dL (8.4-10.2); Carbon Dioxide 31 mmol/L (22-30); Chloride 97 mmol/L (98-107); Estimated CRCL calculation 7 ml/min; Estimated Glomerular Filt Rate 5; Glucose 142 mg/dL (65-110); Lipase 61 U/L (23-300); Potassium 3.6 mmol/L (3.4-5.0); Sodium 134 mmol/L (137-145)
[2022-06-14 23:13] LABS: Lactic Acid Reflex 0.7 mmol/L (0.7-2.0)
[2022-06-14 23:33] LABS: Bacteria Urine None Seen /hpf; Color Urine Yellow (Yellow); Non Pathogenic Casts 0-2; RBC Urine 0-2 /hpf (0-2); Squamous Epithelial Cell Urine Occasional /hpf (Few); WBC Urine 0-5 /hpf
[2022-06-14 23:34] LABS: Appearance Urine Clear (Clear); Bilirubin Urine Negative (Negative); Blood Urine 1+ (Negative); Glucose Urine UA Trace mg/dL (Negative); Ketones Urine Negative (Negative); Leukocyte Esterase Ur Negative LEU/UL (Negative); Nitrate Urine Negative (Negative); Protein Urine 2+ mg/dL (Negative); Specific Grav Ur 1.009 (1.001-1.035); Urobilinogen Urine 0.2 mg/dL (<2.0); pH Urine 8.5 (5.0-9.0)
[2022-06-14 23:43] LABS: Add Urine Microscopic? YES
[2022-06-15] VITALS (38 sets, daily range): BP systolic 158–190; BP diastolic 74–105; PULSE 69–88; RESP 12–25; TEMP 36.4–37.1; O2SAT 98–100; BMI 35.3
--- NOTE | 2022-06-15 02:32 | PC.NURSE ---
Spoke with Anaid at [place] poison control who advised patient will present bradycardic and hypotensive. Anaid advised that most medications taken have past the half life, the only two that have not are the trazodone and mirtazapine.
[2022-06-15] MEDS: cefTRIAXone 2 GM/NS 100 ML 2 GM/100 ML BAG IVPB (04:48)
--- NOTE | 2022-06-15 05:25 | PM.IMHP ---
H&P: HPI History of Present Illness Date/Time: 06/15/22 05:25 Chief Complaint: Abdominal pain Narrative: 42-year-old female with a past medical history of insulin-dependent diabetes mellitus, uncontrolled hypertension, and end-stage renal disease on peritoneal dialysis who presented to the ER with abdominal pain since 06/12/2022. Review of Systems Review of Systems: 12 systems were reviewed with pertinent positives and negatives per HPI. Except as documented in the HPI, all other systems were reviewed and are negative. [facility] Past Medical History Medical History Arthritis Right wrist left knee Chronic kidney disease, stage 5 CKD (chronic kidney disease) stage 4, GFR 15-29 ml/min Diabetes Type 2 insulin-dependent Diverticulitis Dysphagia, oropharyngeal Erythropoietin deficiency anemia Gastroesophageal reflux Hypertension Irritable bowel syndrome Morbid obesity Obesity (BMI 30-39.9) Peripheral neuropathy Pneumonia Pyuria Surgical History Surgical History Delivery by section X3 History of salpingo-oophorectomy History of tubal ligation Hx of appendectomy Hx of cholecystectomy Family History Family History Mother Diabetes mellitus Breast cancer Sibling History of blood clots Heart disease Sister has something wrong with her heart Father Hypertension Prostate carcinoma Social History Social History Social History: Patient lives on her own. She has 3 children. She is single. Her oldest daughter is a durable power staff attorney for healthcare. The patient desires to be a full code. Patient stated that she has 5 grandchildren and watches her granddaughter most of the time 1 of her daughters recently with a PE Code status full code Smoking status: Never smoker Second hand tobacco smoke exposure: Yes Alcohol intake: never Substance use type: marijuana Lack of Transportation: No Lack of Food: Never True Current Housing: I Have Housing Concerned About Future Housing: No Difficulty Paying Gas/Electric Bills: YES Difficulty Paying for Meds: No Currently Unemployed: YES Education: Don't Know Difficulty w/ Childcare or Family Care: No Living arrangements: alone Occupation/Education: other Additional occupation/education comments: disabled, 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 [employer] Gender identity (if verbalized by the patient): Female Sexual Orientation (if Verbalized by the Patient): Straight or Heterosexual Spiritual care concerns: No Agree to blood products: Yes Meds Home Medications and Allergies Home Medications Medication Instructions Recorded Confirmed Type blood sugar diagnostic (OneTouch #1 pkg 01/29/21 05/03/22 Rx Verio test strips) lancets 30 gauge (OneTouch Delica #1 pkg 01/29/21 05/03/22 Rx Plus Lancet) pen needle, diabetic 32 gauge x #1 [facility] 01/29/21 05/03/22 Rx 5/32 (BD Ultra-Fine Alyson Pen Needle) hydralazine 100 mg tablet 200 mg PO BID 04/26/21 05/03/22 History lisinopril 20 mg tablet 20 mg PO BID 30 days #30 tabs 12/28/21 05/03/22 Rx ropinirole 0.25 mg tablet 0.25 mg PO QHS #30 tabs 04/18/22 05/03/22 Rx calcium carbonate 200 mg calcium 1,000 mg PO TIDWM 05/03/22 05/03/22 History (500 mg) chewable tablet (Tums) insulin aspart U-100 100 unit/mL 20 unit subcut BID 05/03/22 05/03/22 History (3 mL) subcutaneous pen (Novolog FlexPen U-100 Insulin aspart) insulin glargine 100 unit/mL (3 10 unit subcut QPM 05/03/22 05/03/22 History mL) subcutaneous pen (Lantus Solostar U-100 Insulin) aspirin 81 mg chewable tablet 81 mg PO DAILY@0800 #30 tabs 05/05/22 Rx (Children's Aspirin) atorvastatin 40 mg tablet 80 mg PO DAILY #30 tabs 05/05/22 Rx bisacodyl 10 mg rectal suppository 10 mg RECTAL QAM PRN Constipa
--- NOTE | 2022-06-15 05:53 | ADMGEN ---
This patient, Bakari Smith, was admitted to 2 Medical Room 260-01. Patient/family oriented to hospital policies and general routines including ID bracelet, bed and alarms, visiting hours, pain management, procedures, bathroom and other care routines, personal items, smoking policy, room service/diet, and visiting hours. Information on how to activate the Rapid Response Team has been discussed. Patient/Family are encouraged to report perceived risks to care and to ask questions if they do not understand what they are told or what they should do.
[2022-06-15 08:40] LABS: Glucose Point of Care 129 mg/dl (65-105)
[2022-06-15] MEDS: ATORVASTATIN 40 MG TABLET 80 MG PO (09:41)
[2022-06-15] MEDS: hydrALAZINE HCL 50 MG TABLET 200 MG PO ×2 (09:41→20:37)
[2022-06-15] MEDS: ASPIRIN 81 MG CHEWABLE TABLET PO (09:41)
[2022-06-15] MEDS: lisinopriL 20 MG TABLET PO (09:42)
--- NOTE | 2022-06-15 09:59 | PM.CNNEP ---
Assessment and Plan Assessment and plan (1) Abdominal pain: Code(s): R10.9 - Unspecified abdominal pain Status: Acute Assessment and Plan: the patient had abdominal pain for the last few days. Her belly is completely benign right now. I do not think that this is peritonitis. However she did draw the sample last night with non sterile conditions and so I think that we should give her a prophylactic dose of vancomycin to keep her from getting peritonitis from that. I talked with the dialysis nurse about that and they are going to come and do an exchange this morning. (2) End stage renal disease: Code(s): N18.6 - End stage renal disease Status: Acute Assessment and Plan: The patient has end-stage renal disease from diabetes and hypertension. She has been stable on peritoneal dialysis for a long time. (3) Hypertension: Code(s): I10 - Essential (primary) hypertension Status: Chronic Assessment and Plan: The patient has hypertension. Her blood pressure is high today. It is frequently out of control while in the hospital as well. She is on hydralazine 200 twice a day, lisinopril 20 daily. I will add amlodipine. Will change the hydralazine to 3 times a day. (4) Diabetes: Code(s): E11.9 - Type 2 diabetes mellitus without complications Status: Chronic Assessment and Plan: The patient is on Accu-Cheks and sliding-scale insulin (5) Gastroesophageal reflux: Code(s): K21.9 - Gastro-esophageal reflux disease without esophagitis Status: Acute Assessment and Plan: no symptoms right now (6) Erythropoietin deficiency anemia: Code(s): D63.1 - Anemia in chronic kidney disease Status: Acute Assessment and Plan: hemoglobin 9.9 so will give her Epogen (7) Renal osteodystrophy: Code(s): N25.0 - Renal osteodystrophy Status: Acute Assessment and Plan: will check a phosphorus level in the morning History of Present Illness Reason for Consult Consult date: 06/15/22 Chief Complaint Chief complaint: possible peritonitis History of Present Illness Narrative: Bakari is a very pleasant 42-year-old lady who has multiple medical problems including end-stage renal disease on dialysis nightly with peritoneal dialysis, hypertension, anemia of chronic kidney disease, renal osteodystrophy, diabetes, diverticulosis, GERD, irritable bowel, history of pneumonia. The patient says she was well in till about a week ago when she started having trouble with bowel movements. She went to see her primary care physician on Thursday. She has been taking lactulose and stool softeners to no avail. Thursday night she felt so uncomfortable she bore down substantially to try to have a bowel movement. morning she woke up and she had pain in the subcostal area on both side at the anterior axillary line. She was fairly uncomfortable any time she moves or cough or did anything which involved her belly muscles. She was doing peritoneal dialysis nightly and her fluid was always clear without any cloudiness at all. She had no fevers or chills. She had no nausea or vomiting. No chest pain or shortness of breath. The pain continued to worsen. She did talk with the peritoneal dialysis nurse and talked over things with her and because the fluid was so clear he was unlikely that she had peritonitis so she went to the ER last night. In the ER she had a CT scan which did not show much. Her belly was soft. Fluid sample was taken by the patient but the ER did not have proper equipment for her to take it sterilely but she did anyway. She said the fluid was yellow. May be some cloudiness? But was a very small sample. Today the pain is completely gone. Review of Systems Constitutional: Constitutional: Reports no additional constitutional complaints Eyes: Eyes: Reports no additional eye complaints EN
--- NOTE | 2022-06-15 10:08 | PM.PNNEP ---
Subjective Date/time seen: 06/15/22 10:08 Interval history: patient is on dialysis. She is tolerating it well. Fluid is clear. Belly is soft and nontender she was seen at 9:30 a.m. Objective Data Vital Signs Vital Signs: Vital Signs - 24 hr 06/14/22 20:10 06/14/22 21:10 06/14/22 21:16 Temperature 97.4 F L Pulse Rate 73 76 73 Respiratory Rate 18 15 13 Blood Pressure 185/81 H Pulse Oximetry 100 100 100 Oxygen Delivery Room Air 06/14/22 22:27 06/14/22 22:30 06/14/22 22:53 Temperature Pulse Rate 77 78 77 Respiratory Rate 16 19 15 Blood Pressure 187/88 H Pulse Oximetry 100 100 100 Oxygen Delivery 06/14/22 23:00 06/14/22 23:02 06/14/22 23:15 Temperature Pulse Rate 88 76 81 Respiratory Rate 17 15 13 Blood Pressure 180/78 H Pulse Oximetry 100 100 100 Oxygen Delivery 06/14/22 23:17 06/14/22 23:30 06/14/22 23:32 Temperature Pulse Rate 76 84 81 Respiratory Rate 15 22 H 17 Blood Pressure 179/72 H 164/74 H Pulse Oximetry 100 100 100 Oxygen Delivery 06/14/22 23:45 06/14/22 23:47 06/15/22 00:00 Temperature Pulse Rate 88 83 82 Respiratory Rate 22 H 19 Blood Pressure 176/79 H Pulse Oximetry 100 100 100 Oxygen Delivery 06/15/22 00:02 06/15/22 00:31 06/15/22 00:03 Temperature Pulse Rate 77 79 Respiratory Rate 18 12 15 Blood Pressure 158/105 H 167/88 H Pulse Oximetry 100 98 100 Oxygen Delivery 06/15/22 00:15 06/15/22 00:17 06/15/22 00:30 Temperature Pulse Rate 78 80 77 Respiratory Rate 15 15 14 Blood Pressure 165/78 H Pulse Oximetry 100 99 100 Oxygen Delivery 06/15/22 00:32 06/15/22 00:45 06/15/22 00:47 Temperature Pulse Rate 77 76 81 Respiratory Rate 12 15 20 Blood Pressure 167/88 H 165/87 H Pulse Oximetry 100 100 100 Oxygen Delivery 06/15/22 01:00 06/15/22 01:02 06/15/22 01:15 Temperature Pulse Rate 77 73 73 Respiratory Rate 15 15 18 Blood Pressure 160/79 H Pulse Oximetry 100 100 100 Oxygen Delivery 06/15/22 01:17 06/15/22 01:30 06/15/22 01:45 Temperature Pulse Rate 74 79 81 Respiratory Rate 22 H 18 17 Blood Pressure 173/89 H Pulse Oximetry 100 100 100 Oxygen Delivery 06/15/22 02:10 06/15/22 02:31 06/15/22 02:33 Temperature Pulse Rate 78 78 77 Respiratory Rate 14 14 13 Blood Pressure 178/91 H Pulse Oximetry 100 100 100 Oxygen Delivery 06/15/22 02:56 06/15/22 03:00 06/15/22 03:02 Temperature Pulse Rate 78 77 75 Respiratory Rate 20 15 13 Blood Pressure 160/83 H Pulse Oximetry 100 100 100 Oxygen Delivery 06/15/22 03:15 06/15/22 03:16 06/15/22 03:34 Temperature Pulse Rate 77 80 85 Respiratory Rate 21 H 16 25 H Blood Pressure 178/88 H Pulse Oximetry 100 100 100 Oxygen Delivery 06/15/22 03:45 06/15/22 04:00 06/15/22 04:43 Temperature 98.4 F Pulse Rate 74 70 Respiratory Rate 14 19 Blood Pressure 175/81 H Pulse Oximetry 100 100 100 Oxygen Delivery 06/15/22 04:15 06/15/22 04:30 06/15/22 04:40 Temperature Pulse Rate 70 Respiratory Rate 14 Blood Pressure 175/81 H Pulse Oximetry 100 100 100 Oxygen Delivery 06/15/22 04:45 06/15/22 04:46 06/15/22 05:02 Temperature 97.5 F L Pulse Rate 70 71 69 Respiratory Rate 15 20 18 Blood Pressure 169/85 H 190/85 H Pulse Oximetry 99 100 100 Oxygen Delivery 06/15/22 05:30 Temperature Pulse Rate Respiratory Rate Blood Pressure Pulse Oximetry Oxygen Delivery Room Air Intake/Output Intake/Output: Intake & Output 06/12/22 06/13/22 06/14/22 06/15/22 23:59 23:59 23:59 23:59 Intake Total 100 Balance 100 Meds/Results Medications: Active Medications Generic Name Dose Route Start Last Admin Trade Name Freq PRN Reason Stop Dose Admin Acetaminophen 650 mg 06/15/22 03:48 Acetaminophen 325 Mg Tablet PO Q4H PRN Mild Pain (1-3) or Fever Aspirin 81 mg 06/15/22 08:00 06/15/22 09:41 Aspirin 81 Mg Chewable Tabl
--- NOTE | 2022-06-15 10:17 | PM.PNNEP ---
Subjective Date/time seen: 06/15/22 10:17 Interval history: See other progress note from today Objective Data Vital Signs Vital Signs: Vital Signs - 24 hr 06/14/22 20:10 06/14/22 21:10 06/14/22 21:16 Temperature 97.4 F L Pulse Rate 73 76 73 Respiratory Rate 18 15 13 Blood Pressure 185/81 H Pulse Oximetry 100 100 100 Oxygen Delivery Room Air 06/14/22 22:27 06/14/22 22:30 06/14/22 22:53 Temperature Pulse Rate 77 78 77 Respiratory Rate 16 19 15 Blood Pressure 187/88 H Pulse Oximetry 100 100 100 Oxygen Delivery 06/14/22 23:00 06/14/22 23:02 06/14/22 23:15 Temperature Pulse Rate 88 76 81 Respiratory Rate 17 15 13 Blood Pressure 180/78 H Pulse Oximetry 100 100 100 Oxygen Delivery 06/14/22 23:17 06/14/22 23:30 06/14/22 23:32 Temperature Pulse Rate 76 84 81 Respiratory Rate 15 22 H 17 Blood Pressure 179/72 H 164/74 H Pulse Oximetry 100 100 100 Oxygen Delivery 06/14/22 23:45 06/14/22 23:47 06/15/22 00:00 Temperature Pulse Rate 88 83 82 Respiratory Rate 22 H 19 Blood Pressure 176/79 H Pulse Oximetry 100 100 100 Oxygen Delivery 06/15/22 00:02 06/15/22 00:31 06/15/22 00:03 Temperature Pulse Rate 77 79 Respiratory Rate 18 12 15 Blood Pressure 158/105 H 167/88 H Pulse Oximetry 100 98 100 Oxygen Delivery 06/15/22 00:15 06/15/22 00:17 06/15/22 00:30 Temperature Pulse Rate 78 80 77 Respiratory Rate 15 15 14 Blood Pressure 165/78 H Pulse Oximetry 100 99 100 Oxygen Delivery 06/15/22 00:32 06/15/22 00:45 06/15/22 00:47 Temperature Pulse Rate 77 76 81 Respiratory Rate 12 15 20 Blood Pressure 167/88 H 165/87 H Pulse Oximetry 100 100 100 Oxygen Delivery 06/15/22 01:00 06/15/22 01:02 06/15/22 01:15 Temperature Pulse Rate 77 73 73 Respiratory Rate 15 15 18 Blood Pressure 160/79 H Pulse Oximetry 100 100 100 Oxygen Delivery 06/15/22 01:17 06/15/22 01:30 06/15/22 01:45 Temperature Pulse Rate 74 79 81 Respiratory Rate 22 H 18 17 Blood Pressure 173/89 H Pulse Oximetry 100 100 100 Oxygen Delivery 06/15/22 02:10 06/15/22 02:31 06/15/22 02:33 Temperature Pulse Rate 78 78 77 Respiratory Rate 14 14 13 Blood Pressure 178/91 H Pulse Oximetry 100 100 100 Oxygen Delivery 06/15/22 02:56 06/15/22 03:00 06/15/22 03:02 Temperature Pulse Rate 78 77 75 Respiratory Rate 20 15 13 Blood Pressure 160/83 H Pulse Oximetry 100 100 100 Oxygen Delivery 06/15/22 03:15 06/15/22 03:16 06/15/22 03:34 Temperature Pulse Rate 77 80 85 Respiratory Rate 21 H 16 25 H Blood Pressure 178/88 H Pulse Oximetry 100 100 100 Oxygen Delivery 06/15/22 03:45 06/15/22 04:00 06/15/22 04:43 Temperature 98.4 F Pulse Rate 74 70 Respiratory Rate 14 19 Blood Pressure 175/81 H Pulse Oximetry 100 100 100 Oxygen Delivery 06/15/22 04:15 06/15/22 04:30 06/15/22 04:40 Temperature Pulse Rate 70 Respiratory Rate 14 Blood Pressure 175/81 H Pulse Oximetry 100 100 100 Oxygen Delivery 06/15/22 04:45 06/15/22 04:46 06/15/22 05:02 Temperature 97.5 F L Pulse Rate 70 71 69 Respiratory Rate 15 20 18 Blood Pressure 169/85 H 190/85 H Pulse Oximetry 99 100 100 Oxygen Delivery 06/15/22 05:30 Temperature Pulse Rate Respiratory Rate Blood Pressure Pulse Oximetry Oxygen Delivery Room Air Intake/Output Intake/Output: Intake & Output 06/12/22 06/13/22 06/14/22 06/15/22 23:59 23:59 23:59 23:59 Intake Total 100 Balance 100 Meds/Results Medications: Active Medications Generic Name Dose Route Start Last Admin Trade Name Freq PRN Reason Stop Dose Admin Acetaminophen 650 mg 06/15/22 03:48 Acetaminophen 325 Mg Tablet PO Q4H PRN Mild Pain (1-3) or Fever Aspirin 81 mg 06/15/22 08:00 06/15/22 09:41 Aspirin 81 Mg Chewable Tablet PO 81 mg DAILY@0800 CHAYO Administration Atorvastatin Calcium 80 mg 06/15/22 09:
[2022-06-15] MEDS: GENTAMICIN SULFATE 0.1% CR 15 GM TUBE 1 APPLIC TOPICAL (11:59)
[2022-06-15 12:03] LABS: Glucose Point of Care 142 mg/dl (65-105)
[2022-06-15] MEDS: CALCIUM CARBONATE (TUMS) 500 MG (200 MG ELEMENTAL) 1000 MG PO (12:19)
[2022-06-15] MEDS: BISACODYL 10 MG SUPPOSITORY RECTAL (15:37)
[2022-06-15 17:33] LABS: Glucose Point of Care 182 mg/dl (65-105)
[2022-06-15] MEDS: INSULIN GLARGINE (*BKC) 100 UNITS/ML 10 UNITS SUB-Q (17:58)
[2022-06-15 20:07] LABS: Appearance Peritoneal Fluid Cloudy (Clear); Color Peritoneal Fluid Yellow (Colorless); Nucleated Cells Peritoneal Flu 2331 /uL (0-500); Source Peritoneal Fluid Peritoneal Fluid
[2022-06-15 20:08] LABS: Lymphocytes Peritoneal Fluid 18 %; Monocytes Peritoneal Fluid 6 %; Neutrophils Peritoneal Fluid 76 % (0-25); RBC Peritoneal Fluid < 2000 /uL (0-100000)
[2022-06-15] MEDS: rOPINIRole HCL 0.25 MG TABLET PO (20:37)
[2022-06-15 20:47] LABS: Glucose Point of Care 229 mg/dl (65-105)
[2022-06-15] MEDS: ONDANSETRON INJ 4 MG/2 ML VIAL IV PUSH (21:18)
[2022-06-16] VITALS (8 sets, daily range): BP systolic 172–188; BP diastolic 63–84; PULSE 69–88; RESP 17–21; TEMP 36.4–36.8; O2SAT 100
[2022-06-16 06:02] LABS: Albumin Level 3.1 g/dL (3.5-5.1); Anion Gap 6 mmol/L (8-16); Blood Urea Nitrogen 40 mg/dL (7-17); Calcium 8.8 mg/dL (8.4-10.2); Carbon Dioxide 29 mmol/L (22-30); Chloride 98 mmol/L (98-107); Estimated CRCL calculation 7 ml/min; Estimated Glomerular Filt Rate 5; Glucose 251 mg/dL (65-110); Phosphorus 5.4 mg/dL (2.5-4.5); Potassium 3.3 mmol/L (3.4-5.0); Sodium 133 mmol/L (137-145)
--- NOTE | 2022-06-16 07:28 | PM.IMHP ---
H&P: HPI History of Present Illness Date/Time: 06/15/22 07:28 Chief Complaint: 42-year-old female history of ESRD, still makes urine, on peritoneal dialysis, diabetes, hypertension presented with abdominal pain.? Per patient for the last 4 days she has been having intermittent right-sided abdominal pain, associated with mild bilious nonbloody emesis.? She denied dysuria, hematuria, fevers, chills, chest pain, shortness of breath, hematochezia, melena, hematemesis. [facility] Past Medical History Medical History Arthritis Right wrist left knee Chronic kidney disease, stage 5 CKD (chronic kidney disease) stage 4, GFR 15-29 ml/min Diabetes Type 2 insulin-dependent Diverticulitis Dysphagia, oropharyngeal Erythropoietin deficiency anemia Gastroesophageal reflux Hypertension Irritable bowel syndrome Morbid obesity Obesity (BMI 30-39.9) Peripheral neuropathy Pneumonia Pyuria Surgical History Surgical History Delivery by section X3 History of salpingo-oophorectomy History of tubal ligation Hx of appendectomy Hx of cholecystectomy Family History Family History Mother Diabetes mellitus Breast cancer Sibling History of blood clots Heart disease Sister has something wrong with her heart Father Hypertension Prostate carcinoma Social History Social History Social History: Patient lives on her own. She has 3 children. She is single. Her oldest daughter is a durable power prosecuting attorney for healthcare. The patient desires to be a full code. Patient stated that she has 5 grandchildren and watches her granddaughter most of the time 1 of her daughters recently with a PE Code status full code Smoking status: Never smoker Second hand tobacco smoke exposure: Yes Alcohol intake: former Substance use: current Substance use type: marijuana Lack of Transportation: No Lack of Food: Never True Current Housing: I Have Housing Concerned About Future Housing: No Difficulty Paying Gas/Electric Bills: No Difficulty Paying for Meds: No Currently Unemployed: No Education: High School Diploma/GED Difficulty w/ Childcare or Family Care: No Living arrangements: alone Occupation/Education: other Additional occupation/education comments: disabled, used to work as a [employer] Gender identity (if verbalized by the patient): Female Sexual Orientation (if Verbalized by the Patient): Straight or Heterosexual Spiritual care concerns: No Agree to blood products: Yes Meds Home Medications and Allergies Home Medications Medication Instructions Recorded Confirmed Type blood sugar diagnostic (OneTouch #1 pkg 01/29/21 06/15/22 Rx Verio test strips) lancets 30 gauge (OneTouch Delica #1 pkg 01/29/21 06/15/22 Rx Plus Lancet) pen needle, diabetic 32 gauge x #1 pkg 01/29/21 06/15/22 Rx 32 (BD Ultra-Fine Alyson Pen Needle) hydralazine 100 mg tablet 200 mg PO BID 04/26/21 06/15/22 History ropinirole 0.25 mg tablet 0.25 mg PO QHS #30 tabs 04/18/22 06/15/22 Rx calcium carbonate 200 mg calcium 1,000 mg PO TIDWM 05/03/22 06/15/22 History (500 mg) chewable tablet (Tums) insulin glargine 100 unit/mL (3 10 unit subcut QPM 05/03/22 06/15/22 History mL) subcutaneous pen (Lantus Solostar U-100 Insulin) aspirin 81 mg chewable tablet 81 mg PO DAILY@0800 #30 tabs 05/05/22 06/15/22 Rx (Children's Aspirin) atorvastatin 40 mg tablet 80 mg PO DAILY #30 tabs 05/05/22 06/15/22 Rx bisacodyl 10 mg rectal suppository 10 mg RECTAL QAM PRN Constipation 05/05/22 06/15/22 Rx #30 ea docusate sodium 100 mg capsule 100 mg PO Q12H PRN Constipation 05/05/22 06/15/22 Rx #30 caps lisinopril 20 mg tablet 20 mg PO DAILY 06/15/22 06/15/22 History Allergies
[2022-06-16] MEDS: ASPIRIN 81 MG CHEWABLE TABLET PO (08:04)
[2022-06-16] MEDS: ATORVASTATIN 40 MG TABLET 80 MG PO (08:04)
[2022-06-16] MEDS: lisinopriL 20 MG TABLET PO (08:05)
[2022-06-16] MEDS: hydrALAZINE HCL 50 MG TABLET 200 MG PO ×2 (08:05→17:51)
[2022-06-16] MEDS: CALCIUM CARBONATE (TUMS) 500 MG (200 MG ELEMENTAL) 1000 MG PO ×3 (08:07→17:50)
[2022-06-16] MEDS: ACETAMINOPHEN 325 MG TABLET 650 MG PO (08:11)
[2022-06-16 08:26] LABS: Glucose Point of Care 176 mg/dl (65-105)
[2022-06-16] MEDS: HYDROcodone/acetaminophen (*CRX) 5-325 MG TABLET 1 TAB PO (10:08)
--- NOTE | 2022-06-16 10:23 | PM.PNNEP ---
Progress Note: A&P Assessment and Plan (1) End stage renal disease: Code(s): N18.6 - End stage renal disease Status: Chronic Assessment and Plan: continue nightly CCPD follow electrolytes, volume status, and clearance (2) Peritonitis: Code(s): K65.9 - Peritonitis, unspecified Status: Acute Assessment and Plan: highly suggestive based on PD fluid analysis dose with ceftriaxone in ER and intraperitoneal vancomycin yesterday will repeat PD fluid cell count tomorrow follow PD fluid cultures (3) Hypertension: Code(s): I10 - Essential (primary) hypertension Status: Chronic Assessment and Plan: elevated at this time on labetalol at home - will restart follow trend of hemodynamics (4) Anemia: Code(s): D64.9 - Anemia, unspecified Status: Chronic Assessment and Plan: due to ESRD Epogen while hospitalized follow trend of H/H (5) Diabetes: Code(s): E11.9 - Type 2 diabetes mellitus without complications Status: Chronic Assessment and Plan: follow accuchecks glycemic control per hospitalists Will continue to follow. Subjective Date/time seen: 06/16/22 10:23 Chart reviewed - assuming care from Dr. Stacy; results of PD fluid analysis highly suggestive of peritonitis; received intraperitoneal vancomycin; however, still having intermittent abdominal pain; tolerated CCPD treatment overnight. Exam Narrative: General: WD/WN AA female in NAD Heart: normal S1 and S2; no rub Lungs: clear to auscultation Abdomen: soft, mild TTP, nondistended, positive bowel sounds Extremities: no cyanosis or clubbing; no edema Skin: warm and dry Objective Data Vital Signs Vital Signs: Vital Signs Temp Pulse Resp BP Pulse Ox O2 Del Method 06/16/22 08:00 Room Air 06/16/22 07:45 97.9 F 78 21 H 183/77 H 06/16/22 06:00 97.6 F 78 21 H 188/84 H 100 06/15/22 21:43 97.9 F 78 21 H 183/77 H 100 06/15/22 20:00 Room Air 06/15/22 18:40 97.8 F 76 18 187/74 H 100 Room Air 06/15/22 14:00 98.7 F 88 18 163/76 H 100 06/15/22 13:01 98.2 F 72 20 166/80 H Room Air Intake/Output Intake/Output: Intake & Output 06/13/22 06/14/22 06/15/22 06/16/22 23:59 23:59 23:59 23:59 Intake Total 500 860 Output Total 400 -476 Balance 100 1336 Meds/Results Medications: Active Medications Generic Name Dose Route Start Last Admin Trade Name Freq PRN Reason Stop Dose Admin Acetaminophen 650 mg 06/15/22 03:48 06/16/22 08:11 Acetaminophen 325 Mg Tablet PO 650 mg Q4H PRN Administration Mild Pain (1-3) or Fever Aspirin 81 mg 06/15/22 08:00 06/16/22 08:04 Aspirin 81 Mg Chewable Tablet PO 81 mg DAILY@0800 CHAYO Administration Atorvastatin Calcium 80 mg 06/15/22 09:00 06/16/22 08:04 Atorvastatin 40 Mg Tablet PO 80 mg DAILY CHAYO Administration Bisacodyl 10 mg 06/15/22 15:17 06/15/22 15:37 Bisacodyl 10 Mg Suppository RECTAL 10 mg DAILY PRN Administration Constipation Calcium Carbonate 1,000 mg 06/15/22 08:00 06/16/22 08:07 Calcium Carbonate (Tums) 500 Mg (200 Mg Elemental) PO 1,000 mg TIDWM CHAYO Administration Dextrose 12.5 gm 06/15/22 16:32 Dextrose 50% 25 Gm/50 Ml Syringe IV PUSH PRN PRN Hypoglycemia Protocol Docusate Sodium 100 mg 06/15/22 07:28 Docusate Sodium 100 Mg Capsule PO Q12H PRN Constipation Gentamicin Sulfate 1 applic 06/15/22 13:00 06/16/22 10:08 Gentamicin Sulfate 0.1% Cr 15 Gm Tube TOPICAL Not Given TID CHAYO Glucagon 1 mg 06/15/22 16:32 Glucagon For Inj 1 Mg Vial IM PRN PRN Hypoglycemia Protocol Glucose 15 gm 06/15/22 16:32 Glucose Oral Gel 15 Gm Of Glucse In 37.5 Gm Tube PO PRN PRN Hypoglycemia Protocol Hydralazine HCl 200 mg 06/15/22 08:00 06/16/22 08:05 Hydralazine Hcl 50 Mg Tablet PO 200 mg BIDW
--- NOTE | 2022-06-16 10:40 | PM.IMPN ---
Progress Note: A&P Assessment and Plan (1) Hypertension: Code(s): I10 - Essential (primary) hypertension Status: Chronic (2) Peripheral neuropathy: Code(s): G62.9 - Polyneuropathy, unspecified Status: Chronic (3) Diabetes: Code(s): E11.9 - Type 2 diabetes mellitus without complications Status: Chronic (4) Gastroesophageal reflux: Code(s): K21.9 - Gastro-esophageal reflux disease without esophagitis Status: Acute (5) Renal failure: Qualifiers: Chronic kidney disease stage: unspecified stage Renal failure chronicity: chronic Qualified Code(s): N18.9 - Chronic kidney disease, unspecified Code(s): N19 - Unspecified kidney failure Status: Acute (6) Anemia in chronic kidney disease: Code(s): N18.9 - Chronic kidney disease, unspecified; D63.1 - Anemia in chronic kidney disease Status: Acute (7) Chronic kidney disease, stage 5: Code(s): N18.5 - Chronic kidney disease, stage 5 Status: Acute (8) Peritonitis: Code(s): K65.9 - Peritonitis, unspecified Status: Acute Assessment and Plan: continue abx with PD Subjective Date/time seen: 06/16/22 10:40 Feeling Better Exam Narrative: General: alert and oriented Psych: appropriate mood nad affect Eyes: PERRLA Neck: Trachea midline, no new lesions Skin: no changes Lungs: CTA Cardiac: Normal S1,S2, no MGR ABD: soft, nd, nt, nbs Ext: no new lesions, no cce Vasc: Pulses intact Objective Data Vital Signs Vital Signs: Vital Signs - 24 hr 06/15/22 13:01 06/15/22 14:00 06/15/22 18:40 Temperature 98.2 F 98.7 F 97.8 F Pulse Rate 72 88 76 Respiratory Rate 20 18 18 Blood Pressure 166/80 H 163/76 H 187/74 H Pulse Oximetry 100 100 Oxygen Delivery Room Air Room Air 06/15/22 20:00 06/15/22 21:43 06/16/22 06:00 Temperature 97.9 F 97.6 F Pulse Rate 78 78 Respiratory Rate 21 H 21 H Blood Pressure 183/77 H 188/84 H Pulse Oximetry 100 100 Oxygen Delivery Room Air 06/16/22 07:45 Temperature 97.9 F Pulse Rate 78 Respiratory Rate 21 H Blood Pressure 183/77 H Pulse Oximetry Oxygen Delivery Intake/Output Intake/Output: Intake & Output 06/13/22 06/14/22 06/15/22 06/16/22 23:59 23:59 23:59 23:59 Intake Total 500 860 Output Total 400 -476 Balance 100 1336 Meds/Results Medications: Active Medications Generic Name Dose Route Start Last Admin Trade Name Freq PRN Reason Stop Dose Admin Acetaminophen 650 mg 06/15/22 03:48 06/16/22 08:11 Acetaminophen 325 Mg Tablet PO 650 mg Q4H PRN Administration Mild Pain (1-3) or Fever Aspirin 81 mg 06/15/22 08:00 06/16/22 08:04 Aspirin 81 Mg Chewable Tablet PO 81 mg DAILY@0800 [facility] Administration Atorvastatin Calcium 80 mg 06/15/22 09:00 06/16/22 08:04 Atorvastatin 40 Mg Tablet PO 80 mg DAILY CHAYO Administration Bisacodyl 10 mg 06/15/22 15:17 06/15/22 15:37 Bisacodyl 10 Mg Suppository RECTAL 10 mg DAILY PRN Administration Constipation Calcium Carbonate 1,000 mg 06/15/22 08:00 06/16/22 08:07 Calcium Carbonate (Tums) 500 Mg (200 Mg Elemental) PO 1,000 mg TIDWM CHAYO Administration Dextrose 12.5 gm 06/15/22 16:32 Dextrose 50% 25 Gm/50 Ml Syringe IV PUSH PRN PRN Hypoglycemia Protocol Docusate Sodium 100 mg 06/15/22 07:28 Docusate Sodium 100 Mg Capsule PO Q12H PRN Constipation Gentamicin Sulfate 1 applic 06/15/22 13:00 06/16/22 10:08 Gentamicin Sulfate 0.1% Cr 15 Gm Tube TOPICAL Not Given TID CHAYO Glucagon 1 mg 06/15/22 16:32 Glucagon For Inj 1 Mg Vial IM PRN PRN Hypoglycemia Protocol Glucose 15 gm 06/15/22 16:32 Glucose Oral Gel 15 Gm Of Glucse In 37.5 Gm Tube PO PRN PRN Hypoglycemia Protocol Hydralazine HCl 200 mg 06/15/22 08:00 06/16/22 08:05 Hydralazine Hcl 50 Mg Tablet PO 200 mg BIDWM CHAYO Administration Dextros
[2022-06-16] MEDS: DOCUSATE SODIUM 100 MG CAPSULE PO (11:33)
[2022-06-16 11:55] LABS: Glucose Point of Care 204 mg/dl (65-105)
[2022-06-16] MEDS: ONDANSETRON INJ 4 MG/2 ML VIAL IV PUSH (13:17)
--- NOTE | 2022-06-16 15:51 | PCCCNOTE ---
On 06/16/22, the student, [Minal Doss ], provided care and completed [facility] documentation on this patient. I have reviewed the student's documentation and agree with the findings.
[2022-06-16 17:21] LABS: Glucose Point of Care 218 mg/dl (65-105)
[2022-06-16] MEDS: INSULIN GLARGINE (*BKC) 100 UNITS/ML 10 UNITS SUB-Q (17:52)
--- NOTE | 2022-06-16 18:32 | PC.NURSE ---
On 06/16/22, the student, Addie Valdez RN LP, provided care and completed [facility] documentation on this patient. I have reviewed the student's documentation and agree with the findings.
[2022-06-16] MEDS: rOPINIRole HCL 0.25 MG TABLET PO (20:07)
[2022-06-16] MEDS: LABETALOL HCL 100 MG TABLET PO (20:07)
[2022-06-16 20:23] LABS: Glucose Point of Care 293 mg/dl (65-105)
[2022-06-17 06:00] VITALS: BP 174/79; PULSE 73; RESP 18; TEMP 36.6; O2SAT 100
[2022-06-17 07:20] VITALS: BP 172/70; PULSE 72; RESP 18; TEMP 36.6
[2022-06-17] MEDS: hydrALAZINE HCL 50 MG TABLET 200 MG PO (08:02)
[2022-06-17] MEDS: ASPIRIN 81 MG CHEWABLE TABLET PO (08:02)
[2022-06-17 08:03] VITALS: PULSE 83
[2022-06-17] MEDS: ATORVASTATIN 40 MG TABLET 80 MG PO (08:03)
[2022-06-17] MEDS: LABETALOL HCL 100 MG TABLET PO ×2 (08:03→12:37)
[2022-06-17] MEDS: lisinopriL 20 MG TABLET PO (08:05)
[2022-06-17] MEDS: CALCIUM CARBONATE (TUMS) 500 MG (200 MG ELEMENTAL) 1000 MG PO (08:08)
[2022-06-17] MEDS: GENTAMICIN SULFATE 0.1% CR 15 GM TUBE 1 APPLIC TOPICAL (08:09)
[2022-06-17 08:53] LABS: Appearance Peritoneal Fluid Clear (Clear); Color Peritoneal Fluid Colorless (Colorless); Eosinophils Peritoneal Fluid 1 %; Lymphocytes Peritoneal Fluid 25 %; Monocytes Peritoneal Fluid 13 %; Neutrophils Peritoneal Fluid 61 % (0-25); Source Peritoneal Fluid Peritoneal Fluid
[2022-06-17 08:53] LABS: Glucose Point of Care 129 mg/dl (65-105)
[2022-06-17 08:54] LABS: Nucleated Cells Peritoneal Flu 280 /uL (0-500); RBC Peritoneal Fluid < 2000 /uL (0-100000)
--- NOTE | 2022-06-17 09:58 | PM.PNNEP ---
Progress Note: A&P Assessment and Plan (1) End stage renal disease: Code(s): N18.6 - End stage renal disease Status: Chronic Assessment and Plan: continue nightly CCPD follow electrolytes, volume status, and clearance (2) Peritonitis: Code(s): K65.9 - Peritonitis, unspecified Status: Acute Assessment and Plan: highly suggestive based on PD fluid analysis dose with ceftriaxone in ER and intraperitoneal vancomycin (on 06/15/22) repeat PD fluid cell count with improvement follow PD fluid cultures dose intraperitoneal vancomycin on or Thursday (3) Hypertension: Code(s): I10 - Essential (primary) hypertension Status: Chronic Assessment and Plan: elevated at this time on labetalol at home - restarted follow trend of hemodynamics (4) Anemia: Code(s): D64.9 - Anemia, unspecified Status: Chronic Assessment and Plan: due to ESRD Epogen while hospitalized follow trend of H/H (5) Diabetes: Code(s): E11.9 - Type 2 diabetes mellitus without complications Status: Chronic Assessment and Plan: follow accuchecks glycemic control per hospitalists Discussed with Dr. Zambrano - not opposed to discharge if otherwise medically stable; I will arrange for outpatient intraperitoneal antibiotics and follow-up on PD fluid culture done Will continue to follow. Subjective Date/time seen: 06/17/22 09:58 Tolerated CCPD treatment last night without any issues or problems; repeat PD fluid cell count done this AM shows improvement with current therapy; abdominal pain is significantly better at this time as well; no events overnight or earlier this AM. Exam Narrative: General: WD/WN AA female in NAD Heart: normal S1 and S2; no rub Lungs: clear to auscultation Abdomen: soft, nontender, nondistended, positive bowel sounds Extremities: no cyanosis or clubbing; no edema Skin: warm and intact Objective Data Vital Signs Vital Signs: Vital Signs Temp Pulse Resp BP Pulse Ox O2 Del Method 06/17/22 08:00 Room Air 06/17/22 08:03 83 06/17/22 07:20 98 F 72 18 172/70 H 06/17/22 06:00 97.9 F 73 18 174/79 H 100 06/16/22 20:50 98.2 F 69 18 176/63 H 100 06/16/22 20:07 88 06/16/22 19:43 79 17 100 Room Air 06/16/22 16:30 98.0 F 79 17 172/75 H Room Air 06/16/22 14:20 98.0 F 79 17 172/75 H 100 06/16/22 11:30 175/77 H Intake/Output Intake/Output: Intake & Output 06/14/22 06/15/22 06/16/22 06/17/22 23:59 23:59 23:59 23:59 Intake Total 500 1410 120 Output Total 400 -476 -319 Balance 100 1886 439 Meds/Results Medications: Active Medications Generic Name Dose Route Start Last Admin Trade Name Freq PRN Reason Stop Dose Admin Acetaminophen 650 mg 06/15/22 03:48 06/16/22 08:11 Acetaminophen 325 Mg Tablet PO 650 mg Q4H PRN Administration Mild Pain (1-3) or Fever Aspirin 81 mg 06/15/22 08:00 06/17/22 08:02 Aspirin 81 Mg Chewable Tablet PO 81 mg DAILY@0800 [facility] Administration Atorvastatin Calcium 80 mg 06/15/22 09:00 06/17/22 08:03 Atorvastatin 40 Mg Tablet PO 80 mg DAILY CHAYO Administration Bisacodyl 10 mg 06/15/22 15:17 06/15/22 15:37 Bisacodyl 10 Mg Suppository RECTAL 10 mg DAILY PRN Administration Constipation Calcium Carbonate 1,000 mg 06/15/22 08:00 06/17/22 08:08 Calcium Carbonate (Tums) 500 Mg (200 Mg Elemental) PO 1,000 mg TIDWM CHAYO Administration Dextrose 12.5 gm 06/15/22 16:32 Dextrose 50% 25 Gm/50 Ml Syringe IV PUSH PRN PRN Hypoglycemia Protocol Docusate Sodium 100 mg 06/15/22 07:28 06/16/22 11:33 Docusate Sodium 100 Mg Capsule PO 100 mg Q12H PRN Administration Constipation Gentamicin Sulfate 1 applic 06/15/22 13:00 06/17/22 08:09 Gentamicin Sulfate 0.1% Cr 15 Gm Tube TOPICAL 1 applic TID CHAYO Administration Gluca
--- NOTE | 2022-06-17 10:18 | PM.DS ---
DS: Admitting Diagnosis Discharge Date June 17, 2022 Admitting Diagnosis peritonitis DS: Discharge Diagnosis Discharge Diagnosis (1) Hypertension: Code(s): I10 - Essential (primary) hypertension Status: Chronic (2) Peripheral neuropathy: Code(s): G62.9 - Polyneuropathy, unspecified Status: Chronic (3) Diabetes: Code(s): E11.9 - Type 2 diabetes mellitus without complications Status: Chronic (4) Gastroesophageal reflux: Code(s): K21.9 - Gastro-esophageal reflux disease without esophagitis Status: Acute (5) Renal failure: Qualifiers: Chronic kidney disease stage: unspecified stage Renal failure chronicity: chronic Qualified Code(s): N18.9 - Chronic kidney disease, unspecified Code(s): N19 - Unspecified kidney failure Status: Acute (6) Anemia in chronic kidney disease: Code(s): N18.9 - Chronic kidney disease, unspecified; D63.1 - Anemia in chronic kidney disease Status: Acute (7) Chronic kidney disease, stage 5: Code(s): N18.5 - Chronic kidney disease, stage 5 Status: Acute (8) Peritonitis: Code(s): K65.9 - Peritonitis, unspecified Status: Acute DS: Summary Hospital Course Hospital Course: admkitted for peritonitis will need abx set up by renal thorugh PD doing well now, can be dc Time Spent with Patient Time attestation: Total time spent providing and/or coordinating discharge services: Exam Narrative: General: alert and oriented Psych: appropriate mood nad affect Eyes: PERRLA Neck: Trachea midline, no new lesions Skin: no changes Lungs: CTA Cardiac: Normal S1,S2, no MGR ABD: soft, nd, nt, nbs Ext: no new lesions, no cce Vasc: Pulses intact DS: Data Data Completed and Pending Labs on day of discharge: Labs from last 24 hours 06/17/22 06/17/22 06/16/22 08:05 08:01 20:07 POC Capillary Glucose 129 H 293 H Peritoneal Source Peritoneal fluid Peritoneal Color Colorless Peritoneal Appearance Clear Peritoneal RBC < 2000 Periton Nuc Cells 280 Periton Neutrophils 61 H Periton Lymphocytes 25 Peritoneal Monocytes 13 Peritoneal Eosinophils 1 06/16/22 06/16/22 17:19 11:50 POC Capillary Glucose 218 H 204 H Peritoneal Source Peritoneal Color Peritoneal Appearance Peritoneal RBC Periton Nuc Cells Periton Neutrophils Periton Lymphocytes Peritoneal Monocytes Peritoneal Eosinophils Preliminary micro results at discharge 06/15/22 00:24 Anaerobic Culture - Preliminary Abdominal Fluid Aerobic Culture - Preliminary Discharge Plan Discharge Attending physician on discharge: Nick Zambrano Consulting providers: Umang Stacy Discharging Clinician: Nick Zambrano Patient Disposition: Home, Self-Care Activity: no preference Diet: as tolerated Patient Instructions: Antibiotic Form Stand Alone Forms: General Discharge Information Follow-up/Referrals: Yessi,LUZ Roman [Primary Care Provider] - Umang Stacy MD [Physician] - Discharge Medications: Continued hydralazine 100 mg tablet 200 mg PO BID calcium carbonate [Tums] 200 mg calcium (500 mg) Tablet,Chewable 1,000 mg PO TIDWM insulin glargine [Lantus Solostar U-100 Insulin] 100 unit/mL (3 mL) insulin pen 10 unit subcut QPM atorvastatin 40 mg Tablet 80 mg PO DAILY Qty: 30 0RF bisacodyl 10 mg Suppository 10 mg RECTAL QAM PRN (Reason: Constipation) Qty: 30 0RF docusate sodium 100 mg Capsule 100 mg PO Q12H PRN (Reason: Constipation) Qty: 30 0RF aspirin [Children's Aspirin] 81 mg Tablet,Chewable 81 mg PO DAILY@0800 Qty: 30 0RF (DME) OneTouch Verio test strips Strip Qty: 1 0RF Rx Instructions: May substitute to in-stock and/or covered by insurance strips. Use As Directed (DME) pen needle, diabetic [BD Ultra-Fine Alyson Pen Needle] 32 gauge x Needle Qt
[2022-06-17 10:36] VITALS: O2SAT 98
[2022-06-17 12:11] LABS: Glucose Point of Care 242 mg/dl (65-105)
[2022-06-17 12:37] VITALS: PULSE 80
[2022-06-17 15:27] VITALS: BP 174/81; PULSE 75; RESP 18; TEMP 36.4; O2SAT 100
== END 2022-06-17 16:49 | disposition home or self-care (01) | DRG 919 ==
LOC: ANHED 06-15 04:09 → ANH2MED 06-15 04:12
PROVIDERS: Internal Medicine Nephrology; Admitting Provider Internal Medicine; Emergency Provider Emergency Medicine; PCP Registered Nurse; Visit Provider Chiropractor
DX: T85.71XA Infection and inflammatory reaction due to peritoneal dialysis catheter, initial encounter (principal); K65.8 Other peritonitis; N18.6 End stage renal disease; I12.0 Hypertensive chronic kidney disease with stage 5 chronic kidney disease or end stage renal disease; E11.22 Type 2 diabetes mellitus with diabetic chronic kidney disease; Z99.2 Dependence on renal dialysis; K57.30 Diverticulosis of large intestine without perforation or abscess without bleeding; K21.9 Gastro-esophageal reflux disease without esophagitis; K58.9 Irritable bowel syndrome, unspecified; E66.01 Morbid (severe) obesity due to excess calories; M19.031 Primary osteoarthritis, right wrist; M17.12 Unilateral primary osteoarthritis, left knee; Z68.35 Body mass index [BMI] 35.0-35.9, adult
CPT/HCPCS: 36415; 74018; 74176; 80048; 80069; 80076; 81001; 81025; 82948; 83605; 83690; 85025; 87070; 87075; 87205; 89051; 90945; 96375; 96376; 99285; A9270; G0378; J0696; J1815; J2405

== ENCOUNTER 2022-09-15 09:11 | Emergency (ER) | payer MEDICARE, MEDICAID, SELFPAY ==
[2022-09-15] VITALS (11 sets, daily range): BP systolic 144–187; BP diastolic 88–89; PULSE 63–94; RESP 12–33; TEMP 36.6; O2SAT 100
--- NOTE | 2022-09-15 09:26 | ECG_ITS ---
Measurements Intervals [place] Rate: 70 P: 62 CA: 142 QRS: -15 QRSD: 86 T: 17 QT: 416 QTc: 451 Interpretive Statements SINUS RHYTHM CANNOT RULE OUT SEPTAL INFARCT, AGE INDETERMINATE BASELINE ARTIFACT- I, II, III, AVR, AVL, AVF, V1-V6 ABNORMAL ECG COMPARED TO ECG 05/05/2022 11:23:29 MYOCARDIAL INFARCT FINDING NOW PRESENT Electronically Signed On 09-15-2022 9:58:59 CDT by Tomasz Scott D.O.
--- NOTE | 2022-09-15 09:28 | ED.GENADULT ---
HPI - General Adult General Chief complaint: Unspecified Stated complaint: needs fluids Time Seen by Provider: 09/15/22 09:19 History of Present Illness HPI narrative: 42-year-old female presents to the emergency room today for complaints of generalized weakness and poor appetite. She reports that she has had a very low appetite for quite a while now but has not been able to eat anything for several days. She reports that she is feeling extremely weak today and was unable to walk very well. She was able to drive herself here. But she is very distraught due to the severe generalized weakness. She denies having any symptoms of pain. No numbness or tingling. No unilateral weakness. No dizziness or confusion. No speech changes. She does have history of renal failure and gets peritoneal dialysis at home daily. Related Data Home Medications Medication Instructions Recorded Confirmed calcium carbonate 200 mg calcium 1,000 mg PO TIDWM 05/03/22 09/05/22 (500 mg) chewable tablet (Tums) insulin glargine 100 unit/mL (3 10 unit subcut QPM 05/03/22 09/05/22 mL) subcutaneous pen (Lantus Solostar U-100 Insulin) labetalol 300 mg tablet 300 mg PO Q12H 07/28/22 09/05/22 hydralazine 100 mg tablet 100 mg PO BID 09/05/22 09/05/22 lisinopril 20 mg tablet 20 mg PO BID 09/05/22 09/05/22 Allergies Allergy/AdvReac Type Severity Reaction Status Date / Time metronidazole Allergy Intermediate Rash Verified 09/05/22 13:53 omeprazole Allergy Intermediate Rash Verified 09/05/22 13:53 Review of Systems Review of Systems: CONSTITUTIONAL: Generalized weakness EYES: Denies visual changes, redness, or discharge. ENT: Denies rhinorrhea, congestion, sore throat, or otalgia. CARDIOVASCULAR: Denies chest pain, palpitations, or edema. RESPIRATORY: Denies cough or dyspnea. GASTROINTESTINAL: Has had some nausea this morning. Reports very poor appetite. GENITOURINARY: Denies dysuria or hematuria. SKIN: Denies rash or itching. MUSCULOSKELETAL: Denies back pain, joint pain, or myalgia. NEUROLOGIC: Denies headache, numbness, dizziness, reports generalized weakness. PSYCHIATRIC: Very anxious this morning. [facility] Past Medical History Medical History Arthritis Right wrist left knee Chronic kidney disease, stage 5 CKD (chronic kidney disease) stage 4, GFR 15-29 ml/min Diabetes Type 2 insulin-dependent Diverticulitis Dysphagia, oropharyngeal Erythropoietin deficiency anemia Gastroesophageal reflux Hypertension Irritable bowel syndrome Morbid obesity Obesity (BMI 30-39.9) Peripheral neuropathy Pneumonia Pyuria Surgical History Surgical History Delivery by section X3 History of salpingo-oophorectomy History of tubal ligation Hx of appendectomy Hx of cholecystectomy Family History Family History Mother Diabetes mellitus Breast cancer Sibling History of blood clots Heart disease Sister has something wrong with her heart Father Hypertension Prostate carcinoma Social History Social History Social History: Patient lives on her own. She has 3 children. She is single. Her oldest daughter is a durable power commercial litigation attorney for healthcare. The patient desires to be a full code. Patient stated that she has 5 grandchildren and watches her granddaughter most of the time 1 of her daughters recently with a PE Code status full code Smoking status: Never smoker Second hand tobacco smoke exposure: Yes Alcohol intake: former Substance use: current Substance use type: marijuana Lack of Transportation: No Lack of Food: Never True Current Housing: I Have Housing Concerned About Future Housing: No Difficulty Paying Gas/Electric Bills: No Difficulty Paying for Meds: YES Shahram
[2022-09-15] MEDS: SODIUM CHLORIDE 0.9% IV 1,000 ML 999 ML IV CONT (09:53)
[2022-09-15 09:54] LABS: Basophils Absolute Auto 0.1 K/mm3 (0.0-0.1); Basophils Percent Auto 0.9 % (0.2-1.2); Eosinophils Absolute Auto 0.2 K/mm3 (0-0.3); Eosinophils Percent Auto 2.5 % (0-4.4); Hematocrit 39.9 % (37.0-47.0); Hemoglobin 12.6 g/dL (12.0-15.0); Immature Granulocyte Absolute 0.03 K/mm3 (0.00-0.031); Immature Granulocyte Percent A 0.3 % (0-0.5); Lymphocytes Absolute Auto 2.67 K/mm3 (0.9-3.2); Lymphocytes Percent Auto 29.3 % (18.3-44.2); Mean Corpuscular HGB Conc 31.6 g/dl (32-36); Mean Corpuscular Hemoglobin 26.8 pg (26-34); Mean Corpuscular Volume 84.9 fl (80-100); Mean Platelet Volume 9.1 fl (7.4-10.4); Monocytes Absolute Auto 0.5 K/mm3 (0.1-0.6); Monocytes Percent Auto 5.3 % (2.6-8.5); Neutrophils Absolute Auto 5.6 K/mm3 (1.3-6.7); Neutrophils Percent Auto 61.7 % (45.5-73.1); Platelet Count Result 363 k/mm3 (150-375); Red Cell Distribution Width 14.6 % (11.5-14.5); White Blood Count 9.1 K/mm3 (4.5-10.0)
[2022-09-15] MEDS: ONDANSETRON INJ 4 MG/2 ML VIAL IV PUSH (09:54)
[2022-09-15] MEDS: LORazepam INJ (*CRX) 2 MG/ML VIAL 0.5 MG IV PUSH (09:54)
[2022-09-15 10:12] LABS: Alanine Aminotransferase 30 U/L (6-35); Alkaline Phosphatase 116 U/L (38-126); Anion Gap 16 mmol/L (8-16); Aspartate Amino Transferase 36 U/L (14-36); Bilirubin,Total 0.6 mg/dL (0.2-1.3); Blood Urea Nitrogen 34 mg/dL (7-17); Calcium 9.5 mg/dL (8.4-10.2); Carbon Dioxide 18 mmol/L (22-30); Chloride 98 mmol/L (98-107); Estimated CRCL calculation 6 ml/min; Estimated Glomerular Filt Rate 4; Glucose 300 mg/dL (65-110); Potassium 3.8 mmol/L (3.4-5.0); Sodium 132 mmol/L (137-145)
[2022-09-15 12:12] LABS: Add Urine Microscopic? YES; Appearance Urine Clear (Clear); Bacteria Urine None Seen /hpf; Bilirubin Urine Negative (Negative); Blood Urine 1+ (Negative); Color Urine Yellow (Yellow); Glucose Urine UA 2+ mg/dL (Negative); Ketones Urine Negative (Negative); Leukocyte Esterase Ur Negative LEU/UL (Negative); Nitrate Urine Negative (Negative); Non Pathogenic Casts 0-2; Protein Urine 2+ mg/dL (Negative); RBC Urine 0-2 /hpf (0-2); Specific Grav Ur 1.008 (1.001-1.035); Squamous Epithelial Cell Urine None seen /hpf (Few); Urobilinogen Urine 0.2 mg/dL (<2.0); WBC Urine 0-5 /hpf
== END 2022-09-15 13:05 | disposition home or self-care (01) ==
PROVIDERS: Emergency Provider Nurse Practitioner Family; PCP Registered Nurse
DX: R53.1 Weakness (principal); R63.0 Anorexia; E11.22 Type 2 diabetes mellitus with diabetic chronic kidney disease; I12.0 Hypertensive chronic kidney disease with stage 5 chronic kidney disease or end stage renal disease; N18.5 Chronic kidney disease, stage 5; D63.1 Anemia in chronic kidney disease; E11.42 Type 2 diabetes mellitus with diabetic polyneuropathy; E66.01 Morbid (severe) obesity due to excess calories; Z68.32 Body mass index [BMI] 32.0-32.9, adult; K58.9 Irritable bowel syndrome, unspecified; M19.031 Primary osteoarthritis, right wrist; Z87.01 Personal history of pneumonia (recurrent); Z90.49 Acquired absence of other specified parts of digestive tract; Z79.4 Long term (current) use of insulin
CPT/HCPCS: 36415; 80053; 81001; 81003; 85025; 93005; 96361; 96374; 96375; 99284; J2060; J2405; J7030

== ENCOUNTER 2022-11-01 09:31 | Emergency (ER) | payer MEDICARE, MEDICAID, SELFPAY ==
--- NOTE | ~2022-11-01 | XR_ITS ---
XR chest 2V DATE: 11/01/2022 10:15 INDICATION: Left-sided chest pain. Managed hypertension. TECHNIQUE: PA and lateral views COMPARISON: 01/26/2021 portable AP chest FINDINGS: Normal heart size. No hilar or mediastinal enlargement. No pulmonary infiltrate or consolid ation, pleural effusion or pulmonary vascular congestion or pneumothorax. Surgical clips, right upper quadrant, consistent with cholecystectomy IMPRESSION: No active cardiopulmonary disease Reviewed, dictated and finalized at location A.
--- NOTE | 2022-11-01 09:34 | ECG_ITS ---
Measurements Intervals [place] Rate: 64 P: 62 [place]: 157 QRS: 11 QRSD: 90 T: 38 QT: 427 QTc: 444 Interpretive Statements SINUS RHYTHM CANNOT RULE OUT SEPTAL INFARCT, AGE INDETERMINATE BORDERLINE ST ABNORMALITY- INFERIOR LEADS ABNORMAL ECG COMPARED TO ECG 09/15/2022 09:57:19 NO SIGNIFICANT CHANGES Electronically Signed On 11-01-2022 16:32:12 CDT by Tomasz Scott D.O.
[2022-11-01 09:50] LABS: Basophils Absolute Auto 0.1 K/mm3 (0.0-0.1); Basophils Percent Auto 1.2 % (0.2-1.2); Eosinophils Absolute Auto 0.3 K/mm3 (0-0.3); Hematocrit 35.9 % (37.0-47.0); Hemoglobin 11.2 g/dL (12.0-15.0); Immature Granulocyte Absolute 0.03 K/mm3 (0.00-0.031); Immature Granulocyte Percent A 0.4 % (0-0.5); Lymphocytes Absolute Auto 2.54 K/mm3 (0.9-3.2); Lymphocytes Percent Auto 34.7 % (18.3-44.2); Mean Corpuscular HGB Conc 31.2 g/dl (32-36); Mean Corpuscular Hemoglobin 27.3 pg (26-34); Mean Corpuscular Volume 87.3 fl (80-100); Monocytes Absolute Auto 0.4 K/mm3 (0.1-0.6); Monocytes Percent Auto 5.7 % (2.6-8.5); Neutrophils Absolute Auto 3.9 K/mm3 (1.3-6.7); Platelet Count Result 314 k/mm3 (150-375); Red Blood Count 4.11 M/mm3 (4.2-5.4); Red Cell Distribution Width 14.2 % (11.5-14.5); White Blood Count 7.3 K/mm3 (4.5-10.0)
[2022-11-01 09:51] VITALS: BP 150/77; PULSE 64; RESP 15; TEMP 36.6; O2SAT 99
[2022-11-01 10:00] LABS: Prothrombin Time 13.1 Seconds (11.1-14.7)
[2022-11-01 10:01] LABS: Alanine Aminotransferase 31 U/L (6-35); Albumin Level 3.7 g/dL (3.5-5.1); Alkaline Phosphatase 142 U/L (38-126); Anion Gap 10 mmol/L (8-16); Aspartate Amino Transferase 36 U/L (14-36); Bilirubin,Total 0.5 mg/dL (0.2-1.3); Blood Urea Nitrogen 54 mg/dL (7-17); Calcium 8.8 mg/dL (8.4-10.2); Carbon Dioxide 27 mmol/L (22-30); Chloride 98 mmol/L (98-107); Estimated CRCL calculation 5 ml/min; Estimated Glomerular Filt Rate 4; Glucose 111 mg/dL (65-110); Lipase 206 U/L (23-300); Partial Thromboplastin Time 27.2 SECONDS (22.3-36.8); Potassium 3.8 mmol/L (3.4-5.0); Sodium 135 mmol/L (137-145)
[2022-11-01 10:11] LABS: Troponin I 0.023 ng/mL (0.000-0.034)
--- NOTE | 2022-11-01 11:13 | ED.CHESTPAIN ---
HPI - Chest Pain General Chief Complaint: Chest Pain Stated Complaint: chest pain Time Seen by Provider: 11/01/22 10:57 History of Present Illness HPI narrative: Patient is a 42-year-old female who presents ER with left-sided chest pain. Ongoing for 4 days and constant. Worse with physical movements. No fevers or chills or sweats. No difficulty breathing. No history of coronary artery disease. Patient does have end-stage renal disease and does daily peritoneal dialysis. She reports compliance with her home medication including her antihypertensives. She is found no alleviating factors other than sitting still. She has tried no oral pain medications Related Data Home Medications Medication Instructions Recorded Confirmed calcium carbonate 200 mg calcium 1,000 mg PO TIDWM 05/03/22 09/05/22 (500 mg) chewable tablet (Tums) insulin glargine 100 unit/mL (3 10 unit subcut QPM 05/03/22 09/05/22 mL) subcutaneous pen (Lantus Solostar U-100 Insulin) labetalol 300 mg tablet 300 mg PO Q12H 07/28/22 09/05/22 hydralazine 100 mg tablet 100 mg PO BID 09/05/22 09/05/22 lisinopril 20 mg tablet 20 mg PO BID 09/05/22 09/05/22 Allergies Allergy/AdvReac Type Severity Reaction Status Date / Time metronidazole Allergy Intermediate Rash Verified 09/05/22 13:53 omeprazole Allergy Intermediate Rash Verified 09/05/22 13:53 Review of Systems Review of Systems: All systems reviewed & are unremarkable except as noted in HPI and below Constitutional: Constitutional: Denies chills, Denies fatigue and Denies fever(s) ENT: Reports system reviewed and no additional complaints, except as documented Cardiovascular: Cardiovascular: Reports chest pain, Denies rapid heart rate and Denies radiating jaw, neck or arm pain Respiratory: Respiratory: Reports no additional respiratory complaints Gastrointestinal: Gastrointestinal: Reports no additional gastrointestinal complaints Musculoskeletal: Musculoskeletal: Reports no additional musculoskeletal complaints Integumentary/Breasts: Skin/Breast: Reports system reviewed and no additional complaints, except as docu [facility] Past Medical History Medical History Arthritis Right wrist left knee Chronic kidney disease, stage 5 CKD (chronic kidney disease) stage 4, GFR 15-29 ml/min Diabetes Type 2 insulin-dependent Diverticulitis Dysphagia, oropharyngeal Erythropoietin deficiency anemia Gastroesophageal reflux Hypertension Irritable bowel syndrome Morbid obesity Obesity (BMI 30-39.9) Peripheral neuropathy Pneumonia Pyuria Surgical History Surgical History Delivery by section X3 History of salpingo-oophorectomy History of tubal ligation Hx of appendectomy Hx of cholecystectomy Family History Family History Mother Diabetes mellitus Breast cancer Sibling History of blood clots Heart disease Sister has something wrong with her heart Father Hypertension Prostate carcinoma Social History Social History Social History: Patient lives on her own. She has 3 children. She is single. Her oldest daughter is a durable power computer numerical control programmer for healthcare. The patient desires to be a full code. Patient stated that she has 5 grandchildren and watches her granddaughter most of the time 1 of her daughters recently with a PE Code status full code Smoking status: Never smoker Second hand tobacco smoke exposure: Yes Alcohol intake: former Substance use: current Substance use type: marijuana Lack of Transportation: No Lack of Food: Never True Current Housing: I Have Housing Concerned About Future Housing: No Difficulty Paying Gas/Electric Bills: No Difficulty Paying for Meds: YES Currently Unemployed: No Education: De
[2022-11-01] MEDS: ASPIRIN 81 MG CHEWABLE TABLET 324 MG PO (11:57)
[2022-11-01] MEDS: MORPHINE SULFATE (*CRX) 4 MG/ML INJ IV PUSH (11:58)
[2022-11-01 12:49] VITALS: BP 195/98; PULSE 68; RESP 16; O2SAT 98
== END 2022-11-01 12:50 | disposition home or self-care (01) ==
PROVIDERS: Emergency Provider Emergency Medicine; PCP Registered Nurse
DX: R07.9 Chest pain, unspecified (principal); I12.0 Hypertensive chronic kidney disease with stage 5 chronic kidney disease or end stage renal disease; E11.22 Type 2 diabetes mellitus with diabetic chronic kidney disease; N18.5 Chronic kidney disease, stage 5
CPT/HCPCS: 36415; 71046; 80053; 83690; 84484; 85025; 85610; 85730; 93005; 96374; 99284; A9270; J2270

== ENCOUNTER 2023-06-19 16:41 | Emergency (ER) | payer MEDICARE, MEDICAID, SELFPAY ==
--- NOTE | ~2023-06-19 | US_ITS ---
EXAMINATION: US arterial duplex UE LT DATE: 06/19/2023 18:54 INDICATION: No bruit or thrill had a left upper extremity dialysis graft. TECHNIQUE: Multiple grayscale and Doppler ultrasound images of the left upper extremity were obtained . COMPARISON: None FINDINGS: No internal vascular flow identified on color Doppler within a left upper extremity dialysis graft. A rterial waveform with brisk systolic upstroke is seen in the left brachial artery distal to the anast omosis with the graft. Normal venous waveforms identified in the left basilic, axillary and subclavia n veins distal to the anastomosis. IMPRESSION: 1. Thrombosed left likely brachial to basilic dialysis graft. Reviewed, dictated and finalized at location A.
[2023-06-19 16:43] VITALS: BP 173/81; PULSE 84; RESP 16; TEMP 36.6; O2SAT 100
--- NOTE | 2023-06-19 17:24 | PC.NURSE ---
pt states vascular access has not be injured nor recent trauma to site. States access has not been used and not sure what the plan is for the access site. was placed by surgeon in [place], pt unsure of MDs name.
--- NOTE | 2023-06-19 17:28 | ED.EXTPRO ---
HPI - Extremity Problem General Chief complaint: Extremity Problem,Nontraumatic Stated complaint: L ARM PAIN WHERE DIALYSIS SHUNT IS PLACED Time Seen by Provider: 06/19/23 17:09 Source: patient Mode of arrival: ambulatory Limitations: no limitations History of Present Illness HPI Narrative: 43yo female with ESRD dependent on peritoneal dialysis who presents with left arm pain where her dialysis shunt was placed. Pain occuring intermittently for a few days. She took a 500mg tablet of TYlenol that didn't help. She can not recall who placed dialysis catheter other than believing it was across the street from [facility] in [place] but not affiliated with that [facility], a private clinic. She states Dr Fernandez her neprhologist would know. Catheer has never been used as she undergoes peritoneal dialysis. It had been placed due to possibility of requiring it when patient was found to have an ovarian mass concerning for cancer but states this resolved. No injury/trauma to the site. No fevers. Pain is worse when she squeezes her arm. Tried having [facility] nurse look into next steps. They said they would do so on Thursday but she felt she couldn't wait. Related Data Home Medications Medication Instructions Recorded Confirmed calcium carbonate (Tums) 1,000 mg PO TIDWM 05/03/22 09/05/22 insulin glargine 100 unit/mL (3 10 unit subcut QPM 05/03/22 09/05/22 mL) subcutaneous pen (Lantus Solostar U-100 Insulin) labetalol 300 mg tablet 300 mg PO Q12H 07/28/22 09/05/22 hydralazine 100 mg tablet 100 mg PO BID 09/05/22 09/05/22 lisinopril 20 mg tablet 20 mg PO BID 09/05/22 09/05/22 Allergies Allergy/AdvReac Type Severity Reaction Status Date / Time metronidazole Allergy Intermediate Rash Verified 09/05/22 13:53 omeprazole Allergy Intermediate Rash Verified 09/05/22 13:53 [facility] Past Medical History Medical History Arthritis Right wrist left knee Chronic kidney disease, stage 5 Diabetes Type 2 insulin-dependent Diverticulitis Dysphagia, oropharyngeal Erythropoietin deficiency anemia Gastroesophageal reflux Hypertension Irritable bowel syndrome Morbid obesity Obesity (BMI 30-39.9) Peripheral neuropathy Peritoneal dialysis catheter in place Pneumonia Pyuria Requires peritoneal dialysis Surgical History Surgical History Delivery by section X3 History of salpingo-oophorectomy History of tubal ligation Hx of appendectomy Hx of cholecystectomy Family History Family History Mother Diabetes mellitus Breast cancer Sibling History of blood clots due to blood clot Heart disease Sister has something wrong with her heart Father Hypertension Prostate carcinoma Daughter , 06/08/2021, 19yo Pulmonary embolism Social History Social History Social History: Patient lives on her own. She has 3 children, 1 . She is single. Her oldest daughter is a durable power health care attorney for healthcare. The patient desires to be a full code. Patient stated that she has 5 grandchildren and watches her granddaughter most of the time. 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
[2023-06-19] MEDS: ACETAMINOPHEN 325 MG TABLET 650 MG PO (18:06)
[2023-06-19 18:07] LABS: Basophils Absolute Auto 0.1 K/mm3 (0.0-0.1); Basophils Percent Auto 0.6 % (0.2-1.2); Eosinophils Absolute Auto 0.6 K/mm3 (0-0.3); Eosinophils Percent Auto 6.2 % (0-4.4); Hematocrit 34.9 % (37.0-47.0); Hemoglobin 10.9 g/dL (12.0-15.0); Immature Granulocyte Absolute 0.04 K/mm3 (0.00-0.031); Immature Granulocyte Percent A 0.4 % (0-0.5); Lymphocytes Absolute Auto 2.62 K/mm3 (0.9-3.2); Lymphocytes Percent Auto 26.8 % (18.3-44.2); Mean Corpuscular HGB Conc 31.2 g/dl (32-36); Mean Corpuscular Hemoglobin 27.1 pg (26-34); Mean Corpuscular Volume 86.8 fl (80-100); Mean Platelet Volume 9.5 fl (7.4-10.4); Monocytes Absolute Auto 0.6 K/mm3 (0.1-0.6); Monocytes Percent Auto 6.4 % (2.6-8.5); Neutrophils Absolute Auto 5.8 K/mm3 (1.3-6.7); Neutrophils Percent Auto 59.6 % (45.5-73.1); Platelet Count Result 241 k/mm3 (150-375); Red Blood Count 4.02 M/mm3 (4.2-5.4); Red Cell Distribution Width 15.2 % (11.5-14.5); White Blood Count 9.8 K/mm3 (4.5-10.0)
--- NOTE | 2023-06-19 18:08 | PC.NURSE ---
Dr Garcia in [facility] placed fistula site.
[2023-06-19 18:27] LABS: Anion Gap 10 mmol/L (4-12); Blood Urea Nitrogen 61 mg/dL (7-17); Calcium 10.1 mg/dL (8.4-10.2); Carbon Dioxide 26 mmol/L (22-30); Chloride 102 mmol/L (98-107); Glucose 226 mg/dL (65-110); Potassium 4.8 mmol/L (3.4-5.0); Sodium 138 mmol/L (137-145)
[2023-06-19 18:32] LABS: Estimated CRCL calculation 5 ml/min; Estimated Glomerular Filt Rate 3
--- NOTE | 2023-06-19 19:11 | PC.NURSE ---
no thrill felt or bruit heard with assessment.
--- NOTE | 2023-06-19 19:13 | PC.NURSE ---
Report from DELFINO Michaud.
[2023-06-19] MEDS: RIVAROXABAN 15 MG TABLET PO (21:01)
[2023-06-19 21:05] VITALS: BP 158/86; PULSE 81; RESP 16; O2SAT 99
== END 2023-06-19 21:06 | disposition home or self-care (01) ==
PROVIDERS: Emergency Provider Student in an Organized Health Care Education/Training Program; PCP Registered Nurse
DX: T82.868A Thrombosis due to vascular prosthetic devices, implants and grafts, initial encounter (principal); E11.22 Type 2 diabetes mellitus with diabetic chronic kidney disease; I12.0 Hypertensive chronic kidney disease with stage 5 chronic kidney disease or end stage renal disease; N18.6 End stage renal disease; D63.1 Anemia in chronic kidney disease; Z99.2 Dependence on renal dialysis; E66.01 Morbid (severe) obesity due to excess calories; Z68.32 Body mass index [BMI] 32.0-32.9, adult; E11.42 Type 2 diabetes mellitus with diabetic polyneuropathy; K21.9 Gastro-esophageal reflux disease without esophagitis; K58.9 Irritable bowel syndrome, unspecified; M17.12 Unilateral primary osteoarthritis, left knee; M19.031 Primary osteoarthritis, right wrist; Z87.01 Personal history of pneumonia (recurrent); Z90.79 Acquired absence of other genital organ(s); Z90.49 Acquired absence of other specified parts of digestive tract; Y84.1 Kidney dialysis as the cause of abnormal reaction of the patient, or of later complication, without mention of misadventure at the time of the procedure; Z79.82 Long term (current) use of aspirin; Z79.4 Long term (current) use of insulin
CPT/HCPCS: 36415; 80048; 85025; 85610; 85730; 93931; 99284; A9270

== ENCOUNTER 2023-07-30 16:52 | Outpatient (CLI) | payer MEDICARE, MEDICAID, SELFPAY ==
[2023-08-04 12:58] LABS: Red Blood Cell Folate 614 ng/mL RBC (>280)
[2023-08-05 20:33] LABS: Lipoprotein A 397 nmol/L
[2023-08-06 12:04] LABS: Vitamin D 1,25 (OH)2 Total <8 pg/mL (18-72); Vitamin D2 1,25 (OH)2 <8 pg/mL; Vitamin D3 1,25 (OH)2 <8 pg/mL
== END 2023-07-30 16:53 | disposition home or self-care (01) ==
PROVIDERS: PCP Registered Nurse; Visit Provider Psychiatry & Neurology Neurology
DX: N18.4 Chronic kidney disease, stage 4 (severe) (principal); I63.9 Cerebral infarction, unspecified; I10 Essential (primary) hypertension; G62.9 Polyneuropathy, unspecified; E78.5 Hyperlipidemia, unspecified; E55.9 Vitamin D deficiency, unspecified
CPT/HCPCS: 36415; 82607; 82652; 82747; 83695; 84443

== ENCOUNTER 2023-12-01 15:20 | Emergency (ER) | payer MEDICARE, MEDICAID, SELFPAY ==
[2023-12-01 15:33] VITALS: BP 155/94; PULSE 78; RESP 18; TEMP 36.4; O2SAT 100
--- NOTE | 2023-12-01 15:56 | PC.NURSE ---
Pt daughter approached triage desk requesting for pt IV to be removed so she could take her to a different hospital. RN removed pt IV, catheter tip intact. Pt daughter took pt to exit via wheelchair out to V
== END 2023-12-01 15:56 | disposition left against medical advice (07) ==
LOC: ANHED 16:20
PROVIDERS: PCP Registered Nurse
DX: M79.605 Pain in left leg (principal); M79.604 Pain in right leg
CPT/HCPCS: 99199

== ENCOUNTER 2024-01-05 23:13 | Inpatient (IN) | payer MEDICARE, MEDICAID, SELFPAY ==
--- NOTE | ~2024-01-05 | XR_ITS ---
CHEST RADIOGRAPH, PA AND LATERAL CLINICAL HISTORY: COUGH WEAKNESS X3 DAYS . COMPARISON: 11/01/2022 TECHNIQUE: PA and lateral views of the chest. FINDINGS The cardiomediastinal silhouette is unremarkable. Increased interstitial markings within the distribution of the right middle lobe, for which an infilt rate is suspected. Visualized osseous structures and soft tissues are unremarkable. IMPRESSION: Probable right middle lobe infiltrate Reviewed, dictated and finalized at location A. TAPPER
--- NOTE | 2024-01-05 23:16 | ECG_ITS ---
Test Date: 2024-01-06 03:33:08 Measurements Intervals [place] Rate: 94 P: 53 NE: 117 QRS: 6 QRSD: 80 T: 70 QT: 341 QTc: 427 Interpretive Statements SINUS RHYTHM WITH SHORT NE INTERVAL CANNOT R/O SEPTAL INFARCT, AGE INDETERMINATE BORDERLINE ST-T WAVE ABNORMALITY- HIGH LATERAL LEADS ABNORMAL ECG Compared to ECG 01/06/2024 00:05:39 Short NE interval now present Electronically Signed On 01-06-2024 08:04:41 DENTAL PRACTICE MANAGER by Tomasz Scott D.O.
[2024-01-06] VITALS (10 sets, daily range): BP systolic 153–231; BP diastolic 75–104; PULSE 85–104; RESP 12–20; TEMP 36.7–37; O2SAT 95–100; BMI 34.2
--- NOTE | 2024-01-06 | ECHO_ITS ---
Patient Info Name: Bakari Smith Age: 43 years : 1980 Gender: Female Ht: 63 in Wt: 193 lbs BSA: 2.01 m2 HR: 90 bpm Heart Rhythm: Sinus Rhythm Technical Quality: Good Exam Date: 01/06/2024 1:24 PM Exam Location: Echo Lab Patient Status: Inpatient Admit Date: 01/06/2024 Staff Ordering Physician: Brenna Schneider PA-C Attending Provider: Denia Atkins DO Referring Physician: Wyatt HORN; Exam Type: CA echo doppler color flow Study Info Indications - elevated bnp, sob Complete two-dimensional, color flow and Doppler transthoracic echocardiogram is performed. Summary 1. Complete two-dimensional, color flow and Doppler transthoracic echocardiogram is performed. 2. Left ventricular chamber dimension is normal. 3. Left ventricular systolic function is normal, estimated at 65-70%. 4. There is moderate concentric increased left ventricular wall thickness. 5. The left ventricular diastolic function is abnormal. 6. E/e' 18 is elevated. 7. Left atrial chamber dimension is mildly enlarged. 8. There is mild mitral valve regurgitation. 9. There is mild tricuspid valve regurgitation. 10. Mild pulmonary hypertension, estimated pulmonary arterial systolic pressure is 45 mmHg. Left Ventricle E/e' 18 is elevated. Left ventricular chamber dimension is normal. Left ventricular systolic function is normal, estimated at 65-70%. There is moderate concentric increased left ventricular wall thickness. The left ventricular diastolic function is abnormal. Right Ventricle Right ventricular systolic function is normal and with normal TAPSE 4.3 cm. Right ventricular chamber dimension is normal. Left Atria Left atrial chamber dimension is mildly enlarged. Right Atria Right atrial chamber dimension is normal. Aortic Valve The aortic valve is trileaflet. There is no aortic valve stenosis. There is no aortic valve regurgitation. Pulmonic Valve There is no pulmonic regurgitation. Mitral Valve There is no mitral valve stenosis. There is mild mitral valve regurgitation. Tricuspid Valve There is mild tricuspid valve regurgitation. Mild pulmonary hypertension, estimated pulmonary arterial systolic pressure is 45 mmHg. Pericardium/Pleural There is no pericardial effusion. Inferior Vena Cava Normal inferior vena cava with >50% collapse upon inspiration consistent with normal right atrial pressure, 5 mmHg. Aorta The aortic root size at the sinus of Valsalva is normal. Left Ventricular Outflow Tract Name Value Normal LVOT 2D LVOT Diameter 1.6 cm LVOT Doppler LVOT Peak Gradient 9 mmHg LVOT Mean Gradient 5 mmHg LVOT VTI 35 cm LVOT VTI/AV VTI Ratio 1.0 LVOT Stroke Volume 70 ml LVOT CO 6.0 l/min LVOT CI 3.0 l/min/m2 Mitral Valve Name Value Normal MV Doppler MV Decel [place] 1,084 cm/s2 MV PHT 36 ms MV Area (PHT) 6.1 cm2 4.0-5.0 MV Diastolic Function MV E Peak Velocity 136 cm/s MV A Peak Velocity 92 cm/s MV E/A 1.5 MV Decel Time 125 ms MV Annular TDI MV E/e' (Septal) 19.1 <=8.0 MV E/e' (Lateral) 18.1 <=8.0 MV E/e' (Average) 18.6 Tricuspid Valve Name Value Normal TV Regurgitation Doppler TR Peak Velocity 317 cm/s TR Peak Gradient 40 mmHg Estimated PAP/RSVP RA Pressure 5 mmHg <=5 PA Systolic Pressure 45 mmHg <36 RV Systolic Pressure 45 mmHg <36 Aortic Valve Name Value Normal AV Doppler AV Peak Velocity 168 cm/s AV Peak Gradient 11 mmHg AV Mean Gradient 8 mmHg AV VTI 36 cm AV Area (Cont Eq VTI) 1.9 cm2 >=3.0 AV Area (Cont Eq Hussain) 1.8 cm2 AV Regurgitation 2D LVOT Area 2.0 cm2 Ventricles Name Value Normal LV Dimensions 2D/MM IVS Diastolic Thickness (2D) 1.2 cm 0.6-1.0 LVID Diastole (2D) 5.0 cm 3.8-5.2 LVIW Diastolic Thickness (2D) 1.2 cm 0.6-0.9 LVID Systole (2D) 3.1 cm 2.2-3.5 LVOT Diameter 1.6 cm LV Mass (2D Cubed) 232.41 g 67.00-162.00 LV Mass Index (2D Cubed) 116 g/m2 43-95 Relative Wall Thickness (2D) 0.46 LV Fractional Shortening/Ejection Fraction 2D/MM LV Fractional Shortening (2D) 38 % 27-45 LV EF (2D Teicholz) 68 % 54-74 LV Diastolic Volume (4C MOD) 79 ml LV EF (4C MOD) 74 % LV Diastolic Volume (2C MOD) 101 ml LV EF (2C MOD) 57 % LV Diastolic Volume (BP MOD) 98 ml 46-106 LV Diastolic Volume Index (BP MOD) 49 ml/m2 29-61 LV Systolic Volume (BP MOD) 32 ml 14-42 LV Systolic Volume Index (BP MOD) 16 ml/m2 8-24 LV EF (BP MOD) 68 % 54-74 LV Diastolic Length (4C) 7.0 cm LV Systolic Length (4C) 5.4 cm LV Stroke Volume (4C MOD) 58 ml Atria Name Value Normal LA Dimensions LA Volume (4C A-L) 39 ml LA Volume (BP A-L) 38 ml RA Dimensions RA Area (4C) 12.4 cm2 <=18.0 Report Signatures
--- NOTE | 2024-01-06 00:05 | ECG_ITS ---
Test Date: 2024-01-06 00:05:39 Measurements Intervals [place] Rate: 92 P: 60 [place]: 141 QRS: -5 QRSD: 82 T: 69 QT: 352 QTc: 436 Interpretive Statements SINUS RHYTHM POSSIBLE ANTERIOR MYOCARDIAL INFARCTION , OF INDETERMINATE AGE ABNORMAL ECG No previous ECG available for comparison Electronically Signed On 01-06-2024 10:09:[address] by Tomasz Scott D.O.
[2024-01-06 00:22] LABS: Basophils Absolute Auto 0.1 K/mm3 (0.0-0.1); Basophils Percent Auto 0.8 % (0.2-1.2); Eosinophils Absolute Auto 0.4 K/mm3 (0-0.3); Eosinophils Percent Auto 3.6 % (0-4.4); Hematocrit 28.9 % (37.0-47.0); Immature Granulocyte Absolute 0.07 K/mm3 (0.00-0.031); Immature Granulocyte Percent A 0.6 % (0-0.5); Lymphocytes Absolute Auto 1.52 K/mm3 (0.9-3.2); Lymphocytes Percent Auto 12.8 % (18.3-44.2); Mean Corpuscular HGB Conc 31.1 g/dl (32-36); Mean Corpuscular Hemoglobin 27.6 pg (26-34); Mean Corpuscular Volume 88.7 fl (80-100); Mean Platelet Volume 9.7 fl (7.4-10.4); Monocytes Percent Auto 8.2 % (2.6-8.5); Neutrophils Absolute Auto 8.8 K/mm3 (1.3-6.7); Platelet Count Result 221 k/mm3 (150-375); Red Blood Count 3.26 M/mm3 (4.2-5.4); Red Cell Distribution Width 14.3 % (11.5-14.5); White Blood Count 11.8 K/mm3 (4.5-10.0)
[2024-01-06 00:28] LABS: Alanine Aminotransferase 50 U/L (6-35); Albumin Level 3.7 g/dL (3.5-5.1); Alkaline Phosphatase 216 U/L (38-126); Anion Gap 8 mmol/L (4-12); Aspartate Amino Transferase 49 U/L (14-36); Bilirubin,Total 0.5 mg/dL (0.2-1.3); Blood Urea Nitrogen 57 mg/dL (7-17); Calcium 9.1 mg/dL (8.4-10.2); Carbon Dioxide 26 mmol/L (22-30); Chloride 104 mmol/L (98-107); Estimated CRCL calculation 6 ml/min; Estimated Glomerular Filt Rate 4; Glucose 100 mg/dL (65-110); Lipase 165 U/L (23-300); Potassium 4.7 mmol/L (3.4-5.0); Sodium 138 mmol/L (137-145)
[2024-01-06 00:29] LABS: INR 1.1; Prothrombin Time 14.4 Seconds (11.1-14.7)
[2024-01-06 00:30] LABS: Partial Thromboplastin Time 28.7 Seconds (22.3-36.8)
[2024-01-06 00:40] LABS: Troponin I 0.014 ng/mL (0.000-0.034)
[2024-01-06 00:53] LABS: Influenza A QL RT-PCR Negative (Negative); Influenza B QL RT-PCR Negative (Negative); RSV RNA, RT-PCR Positive (Negative); SARS-CoV-2 RNA PCR Negative (Negative)
[2024-01-06] MEDS: ASPIRIN 81 MG CHEWABLE TABLET 324 MG PO (03:42)
--- NOTE | 2024-01-06 03:49 | ED.CHESTPAIN ---
HPI - Chest Pain General Chief Complaint: Chest Pain Stated Complaint: chest pain, sob Time Seen by Provider: 01/06/24 03:37 Source: patient Mode of arrival: ambulatory Limitations: no limitations History of Present Illness HPI narrative: Patient presents with chest pain and shortness of breath. She has had a cough for which she has been spitting up phlegm. She developed chest pain after frequently coughing. Denies any hemoptysis. Symptoms have been going on for 3 days. She has end-stage renal disease on peritoneal dialysis for the past 3 years and has been compliant with this with no issues. Her stonemason helper is Dr. Anu seymour. She denies any fevers. She states she has been having chills recently but she thought that might be due to the anemia she was recently told she had. No prior blood transfusions. She has been having nasal congestion and rhinorrhea. She lives with her son who has not been sick but her 2-year-old granddaughter was visiting recently and has been sneezing and coughing. Patient has been wearing a mask at the time but granddaughter kept pulling it down. For her kidney disease she is on the donor list through [facility] in [place]. No underlying respiratory conditions such as COPD/asthma or heart failure. Related Data Home Medications Medication Instructions Recorded Confirmed labetalol 300 mg tablet 200 mg PO Q12H 07/28/22 01/06/24 amlodipine 5 mg tablet 5 mg PO DAILY 12/30/23 01/06/24 atorvastatin 20 mg tablet 20 mg PO DAILY 12/30/23 01/06/24 hydralazine 10 mg tablet 100 mg PO BID 12/30/23 01/06/24 insulin glargine 100 unit/mL (3 14 unit subcut DAILY 12/30/23 01/06/24 mL) subcutaneous pen (Lantus Solostar U-100 Insulin) megestrol 40 mg tablet 40 mg PO DAILY 12/30/23 01/06/24 cholecalciferol (vitamin D3) 1,250 1,250 mcg PO DAILY 01/06/24 01/06/24 mcg (50,000 unit) capsule sevelamer carbonate 800 mg tablet 1,600 mg PO TIDWM 01/06/24 01/06/24 Allergies Allergy/AdvReac Type Severity Reaction Status Date / Time metronidazole Allergy Intermediate Rash Verified 01/06/24 06:48 omeprazole Allergy Intermediate Rash Verified 01/06/24 06:48 [facility] Past Medical History Medical History (Updated 01/06/24 @ 14:48 by Brenna Schneider PA-C) Arthritis Right wrist left knee Chronic kidney disease, stage 5 Diabetes Type 2 insulin-dependent Diverticulitis Dysphagia, oropharyngeal Erythropoietin deficiency anemia ESRD (end stage renal disease) Gastroesophageal reflux Hypertension Irritable bowel syndrome Morbid obesity Obesity (BMI 30-39.9) Peripheral neuropathy Peritoneal dialysis catheter in place Pneumonia Pyuria Requires peritoneal dialysis Surgical History Surgical History Delivery by section X3 History of salpingo-oophorectomy History of tubal ligation Hx of appendectomy Hx of cholecystectomy Family History Family History Mother Diabetes mellitus Breast cancer Sibling History of blood clots due to blood clot Heart disease Sister has something wrong with her heart Father Hypertension Prostate carcinoma Daughter , 06/08/2021, 19yo Pulmonary embolism Social History Social History Social History: She has 3 children, 1 . She is single. Her oldest daughter is a durable power greenhouse worker for healthcare. The patient desires to be a full code. Patient stated that she has 5 grandchildren and watches her granddaughter most of the time. Code status full code Smoking status: Never smoker Second hand tobacco smoke exposure: Yes Alcohol intake: former Substance use: former Substance use type: marijuana Do You Feel Safe in your Home?: Yes Lack of Transportation: YES Lack of Food: Never True Current Housing: I Have Housing Concerned About Future Housing: No Difficulty Paying Gas/Electric Bills: No Difficulty Paying for Meds: No Currently Unemployed: YES Education: High School Diploma/GED Difficulty w/ Childcare or Family Care: No Living arrangements: with family Additional living arrangements comments: with son Occupation/Education: other Additional occupation/education comments: 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 EYES: Non injected, non icteric ENT: No epistaxis. Slight dysphonia from developing laryngitis NECK: Supple. CHEST: Speaking in full sentences. Coarse bilateral breath sounds. HEART: Regular rate and rhythm. ABDOMEN: obese but Soft, nondistended. EXTREMITIES: Normal range of motion. SKIN: Warm, dry, no rash. NEURO: No focal deficits. Alert and oriented x3. PSYCH: Congruent mood and affect. Course Vital Signs Vital signs: Vital Signs Temperature 98.6 F 01/06/24 00:15 Pulse Rate 91 01/06/24 00:15 Respiratory Rate 20 01/06/24 00:15 Blood Pressure 231/91 H 01/06/24 00:15 Pulse Oximetry 100 01/06/24 00:15 Oxygen Delivery Room Air 01/06/24 00:15 Temperature 98.0 F 01/06/24 16:00 Pulse Rate 98 01/06/24 16:00 Respiratory Rate 18 01/06/24 16:00 Blood Pressure 176/89 H 01/06/24 16:00 Pulse Oximetry 96 01/06/24 16:00 Oxygen Delivery Room Air 01/06/24 06:55 MDM - Chest Pain MDM Narrative Medical decision making narrative: Patient presents well cough, nasal congestion/rhinorrhea and shortness of breath. The frequent coughing has led to her developing chest pain. In the emergency department she is afebrile with vital signs notable for marked hypertension. Chest x-ray read as lobar pneumonia although patient tests positive for RSV. CURB-65 score Confusion (No 0, Yes +1): 0 BUN >19mg/dl (No 0, Yes +1): 1 RR >/= 30 (No 0, Yes +1): 0 SBP <90mmHg or DBP </=60mmHg (No 0, Yes +1): 0 Age >/=65 (No 0, Yes +1): 0 Result = 1 point Recommend inpatient versus outpatient treatment PSI/PORT Score: Pneumonia Severity Index for CAP Age: 43 years Sex (F -10; Male 0): -10 [facility] resident (No 0, Yes +10):0 Neoplastic disease (No 0, Yes +30):0 Liver disease history (No 0, Yes +20): No but transaminitis today +10 CHF history (No 0, Yes +10):0 Cerebrovascular disease history (No 0, Yes +10): 0 Renal disease history (No 0, Yes +10): 10 Altered mental status (No 0, Yes +20):0 RR >/=30 breaths/min (No 0, Yes +20):0 SBP <90mmHg (No 0, Yes +20):0 Temp <35C (95F) or >39.9C (103.8F) - (No 0, Yes +15):0 Pulse >/=125 beats/min (No 0, Yes +10):0 pH <7.35 (No 0, Yes +30): not obtained BUN >/=30 mg/dL or >/=11mmol/L (No 0, Yes +20): 20 Na <130mmol/L (No 0, Yes +20): 0 Glucose >/=250mg/dl (No 0, Yes +10): 0 Hct <30% (No 0, Yes +10): 10 partial pressure of oxygen <60mmHg (No 0, Yes +10): not obtained Pleural effusion on xray (No 0, Yes +10): 0 Result: 85 points at least , risk class III, 0.9-2.8% mortality. Outpatient or inpatient treatment, depending on clinical judgment. Discussed the benefits and risks, advantages and disadvantages of both option with patient and her daughter who both feel she needs to stay. Nurse notes that there was considerable weakness when patient tried to get up to use the restroom. She required the use of wheelchair and there was still concern that patient might fall. Discussed with green promotions specialist hospitalist Dr Atkins, observation admission status. Differential Diagnosis Differential diagnosis: Likely stable angina, unstable angina pectoris, atypical chest pain, st elevation myocardial infarction, chest pain, biliary colic and other (Acute viral syndrome, cardiorenal process) Lab Data Attestation: I reviewed the patient's lab results. Lab results narrative: Transaminitis End-stage renal disease, known/chronic (on peritoneal dialysis) Leukocytosis and normocytic anemia 01/06/24 00:10 01/06/24 00:10 Labs: Lab Results 01/06/24 01/06/24 01/06/24 Range/Units 00:10 04:00 05:37 WBC 11.8 H (4.5-10.0) K/mm3 RBC 3.26 L (4.2-5.4) M/mm3 Hgb 9.0 L (12.0-15.0) g/dL Hct 28.9 L (37.0-47.0) % MCV 88.7 (80-100) fl MCH 27.6 (26-34) pg MCHC 31.1 L (32-36) g/dl RDW 14.3 (11.5-14.5) % Plt Count 221 (150-375) k/mm3 MPV 9.7 (7.4-10.4) fl Immature Gran % (Auto) 0.6 H (0-0.5) % Neut % (Auto) 74.0 H (45.5-73.1) % Lymph % (Auto) 12.8 L (18.3-44.2) % Swift % (Auto) 8.2 (2.6-8.5) % Eos % (Auto) 3.6 (0-4.4) % Baso % (Auto) 0.8 (0.2-1.2) % Lymph # (Auto) 1.52 (0.9-3.2) K/mm3 Swift # (Auto) 1.0 H (0.1-0.6) K/mm3 Eos # (Auto) 0.4 H (0-0.3) K/mm3 Baso # (Auto) 0.1 (0.0-0.1) K/mm3 Abs Immat Gran (auto) 0.07 H (0.00-0.031) K/mm3 Absolute Neuts (auto) 8.8 H (1.3-6.7) K/mm3 Absolute Nucleated RBC 0.000 (0.0-0.012) K/mm3 Nucleated RBC % 0.0 (0.0-0.2) % PT 14.4 (11.1-14.7) Seconds INR 1.1 APTT 28.7 (22.3-36.8) Seconds Sodium 138 (137-145) mmol/L Potassium 4.7 (3.4-5.0) mmol/L Chloride 104 (98-107) mmol/L Carbon Dioxide 26 (22-30) mmol/L Anion Gap 8 (4-12) mmol/L BUN 57 H (7-17) mg/dL Creatinine 12.50 H (0.7-1.0) mg/dL Estim Creat Clear Calc 6 ml/min Estimated GFR 4 L (59 - ) Glucose 100 (65-110) mg/dL POC Capillary Glucose (65-105) mg/dl Calcium 9.1 (8.4-10.2) mg/dL Iron (37-170) ug/dL TIBC (261-462) ug/dL % Saturation (20-50) % Total Bilirubin 0.5 (0.2-1.3) mg/dL AST 49 H (14-36) U/L ALT 50 H (6-35) U/L Alkaline Phosphatase 216 H (38-126) U/L Troponin I 0.014 0.013 (0.000-0.034) ng/mL NT-Pro-B Natriuret Pep 6110 H (19.9-100) pg/mL Total Protein 7.0 (6.3-8.2) g/dL Albumin 3.7 (3.5-5.1) g/dL Lipase 165 (23-300) U/L Vitamin B12 Folate Influenza A (RT-PCR) Negative (Negative) Influenza B (RT-PCR) Negative (Negative) RSV (RT-PCR) Positive A (Negative) SARS-CoV-2 RNA (RT-PCR) Negative (Negative) 01/06/24 01/06/24 01/06/24 Range/Units 07:45 08:00 08:26 WBC (4.5-10.0) K/mm3 RBC (4.2-5.4) M/mm3 Hgb (12.0-15.0) g/dL Hct (37.0-47.0) % MCV (80-100) fl MCH (26-34) pg MCHC (32-36) g/dl RDW (11.5-14.5) % Plt Count (150-375) k/mm3 MPV (7.4-10.4) fl Immature Gran % (Auto) (0-0.5) % Neut % (Auto) (45.5-73.1) % Lymph % (Auto) (18.3-44.2) % Swift % (Auto) (2.6-8.5) % Eos % (Auto) (0-4.4) % Baso % (Auto) (0.2-1.2) % Lymph # (Auto) (0.9-3.2) K/mm3 Swift # (Auto) (0.1-0.6) K/mm3 Eos # (Auto) (0-0.3) K/mm3 Baso # (Auto) (0.0-0.1) K/mm3 Abs Immat Gran (auto) (0.00-0.031) K/mm3 Absolute Neuts (auto) (1.3-6.7) K/mm3 Absolute Nucleated RBC (0.0-0.012) K/mm3 Nucleated RBC % (0.0-0.2) % PT (11.1-14.7) Seconds INR APTT (22.3-36.8) Seconds Sodium (137-145) mmol/L Potassium (3.4-5.0) mmol/L Chloride (98-107) mmol/L Carbon Dioxide (22-30) mmol/L Anion Gap (4-12) mmol/L BUN (7-17) mg/dL Creatinine (0.7-1.0) mg/dL Estim Creat Clear Calc ml/min Estimated GFR (59 - ) Glucose (65-110) mg/dL POC Capillary Glucose 36 L* 118 H (65-105) mg/dl Calcium (8.4-10.2) mg/dL Iron 27 L (37-170) ug/dL TIBC 178 L (261-462) ug/dL % Saturation 15 L (20-50) % Total Bilirubin (0.2-1.3) mg/dL AST (14-36) U/L ALT (6-35) U/L Alkaline Phosphatase (38-126) U/L Troponin I 0.013 (0.000-0.034) ng/mL NT-Pro-B Natriuret Pep (19.9-100) pg/mL Total Protein (6.3-8.2) g/dL Albumin (3.5-5.1) g/dL Lipase (23-300) U/L Vitamin B12 Pending Folate Pending Influenza A (RT-PCR) (Negative) Influenza B (RT-PCR) (Negative) RSV (RT-PCR) (Negative) SARS-CoV-2 RNA (RT-PCR) (Negative) 01/06/24 Range/Units 11:43 WBC (4.5-10.0) K/mm3 RBC (4.2-5.4) M/mm3 Hgb (12.0-15.0) g/dL Hct (37.0-47.0) % MCV (80-100) fl MCH (26-34) pg MCHC (32-36) g/dl RDW (11.5-14.5) % Plt Count (150-375) k/mm3 MPV (7.4-10.4) fl Immature Gran % (Auto) (0-0.5) % Neut % (Auto) (45.5-73.1) % Lymph % (Auto) (18.3-44.2) % Swift % (Auto) (2.6-8.5) % Eos % (Auto) (0-4.4) % Baso % (Auto) (0.2-1.2) % Lymph # (Auto) (0.9-3.2) K/mm3 Swift # (Auto) (0.1-0.6) K/mm3 Eos # (Auto) (0-0.3) K/mm3 Baso # (Auto) (0.0-0.1) K/mm3 Abs Immat Gran (auto) (0.00-0.031) K/mm3 Absolute Neuts (auto) (1.3-6.7) K/mm3 Absolute Nucleated RBC (0.0-0.012) K/mm3 Nucleated RBC % (0.0-0.2) % PT (11.1-14.7) Seconds INR APTT (22.3-36.8) Seconds Sodium (137-145) mmol/L Potassium (3.4-5.0) mmol/L Chloride (98-107) mmol/L Carbon Dioxide (22-30) mmol/L Anion Gap (4-12) mmol/L BUN (7-17) mg/dL Creatinine (0.7-1.0) mg/dL Estim Creat Clear Calc ml/min Estimated GFR (59 - ) Glucose (65-110) mg/dL POC Capillary Glucose 142 H (65-105) mg/dl Calcium (8.4-10.2) mg/dL Iron (37-170) ug/dL TIBC (261-462) ug/dL % Saturation (20-50) % Total Bilirubin (0.2-1.3) mg/dL AST (14-36) U/L ALT (6-35) U/L Alkaline Phosphatase (38-126) U/L Troponin I (0.000-0.034) ng/mL NT-Pro-B Natriuret Pep (19.9-100) pg/mL Total Protein (6.3-8.2) g/dL Albumin (3.5-5.1) g/dL Lipase (23-300) U/L Vitamin B12 Folate Influenza A (RT-PCR) (Negative) Influenza B (RT-PCR) (Negative) RSV (RT-PCR) (Negative) SARS-CoV-2 RNA (RT-PCR) (Negative) Imaging Data Radiologist's impression: Impressions Chest X-Ray 01/05/24 23:43 IMPRESSION: Probable right middle lobe infiltrate ECG Data EKG #1: Attestation: I personally reviewed and interpreted this ECG as follows: ECG completion date: 01/06/24 ECG completion time: 00:05 Interpretation: Normal sinus rhythm at a rate of 92 beats per minute. MN interval 141. QRS 82. QT/QTC 352/402. Good R-wave progression across the precordial leads. No T-wave inversions. EKG #2: Attestation: I personally reviewed and interpreted this ECG as follows: ECG completion date: 01/06/24 ECG completion time: 03:33 Interpretation: Normal sinus rhythm at a rate of 94 beats per minute. MN interval 117. QRS 80. QT/QTC 341/393. Good R-wave progression across the precordial leads. No T-wave inversions. Discharge Plan Discharge Clinical Impression: Pneumonia due to respiratory syncytial virus (RSV), Transaminitis, End-stage renal disease on peritoneal dialysis, Leukocytosis, Normocytic anemia, Elevated brain natriuretic peptide (BNP) level, Hypertension Patient Disposition: Still a Patient Condition: Stable
--- NOTE | 2024-01-06 04:04 | PC.NURSE ---
RN attempt x 4 for iv unsuccessful
[2024-01-06 04:26] LABS: NT Pro B Type Natriuretic Pept 6110 pg/mL (19.9-100)
[2024-01-06] MEDS: LABETALOL HCL 100 MG TABLET 300 MG PO (04:45)
[2024-01-06] MEDS: hydrALAZINE 10 MG TABLET BY MOUTH (04:45)
[2024-01-06] MEDS: HYDROcodone/acetaminophen (*CRX) 5-325 MG TABLET 1 TAB PO (05:36)
[2024-01-06] MEDS: ACETAMINOPHEN 325 MG TABLET 650 MG PO ×3 (05:42→22:51)
--- NOTE | 2024-01-06 06:52 | P.HP_ITS ---
H&P: HPI History of Present Illness Date/Time: 01/06/24 06:52 Chief Complaint: shortness of breath Narrative: 43 year old female with past medical history of ESRD on dialysis, HTN, diabetes, and hx CVA 2022 (no deficits) presents to the hospital for shortness of breath and chest pain secondary to coughing. Patient states that the shortness of breath started 3 days ago after seeing her granddaughter who was also sick with URI symptoms. She states that since becoming short of breath she has also developed a dry nonproductive cough with associated chest pain. The chest pain only occurs with the cough and she describes it as a tight ache. She denies palliations, fever and chills. She is currently getting peritoneal dialysis nightly and denies missing any days. Does note that she had some lower extremit y swelling up to her calves the other day. She called her dialysis nurse who stated to change her back to the red bag and this greatly improved. She states that she has been following her strict to 32 oz fluid restriction and has good urine output. She denies any abdominal bloating/tightness that she typically gets with volume overload. She does note that she has had multiple falls here lately to her legs buckling. She denies dizziness or lightheadedness preceding the fall. She denies loss of consciousness or hitting her head. At time of assessment patient is sitting up comfortably on the side of bed. She continues to endorse shortness of breath and a nonproductive cough. She denies any chest pain palpitations nausea/ vomiting or abdominal pain at that time. ED workup: WBC 11.8, RBC 9/28.9, PLT 221. PT/INR WNL. Chemistry unremarkable. BUN/Cr 57/12.50 on daily PD. Glucose 100. Tot bili 0.5, AST 49, ALT 50, alk phos 216. Troponin negative. BNP 6110. RSV positive. EKG sinus rhythm. Chest XR: probable right middle lobe infiltrate. Nephrology consulted. Review of Systems Review of Systems: All systems reviewed & are unremarkable except as noted in HPI and below [facility] Past Medical History Medical History (Updated 01/06/24 @ 14:48 by Brenna Schneider PA-C) Arthritis Right wrist left knee Chronic kidney disease, stage 5 Diabetes Type 2 insulin-dependent Diverticulitis Dysphagia, oropharyngeal Erythropoietin deficiency anemia ESRD (end stage renal disease) Gastroesophageal reflux Hypertension Irritable bowel syndrome Morbid obesity Obesity (BMI 30-39.9) Peripheral neuropathy Peritoneal dialysis catheter in place Pneumonia Pyuria Requires peritoneal dialysis Surgical History Surgical History Delivery by section X3 History of salpingo-oophorectomy History of tubal ligation Hx of appendectomy Hx of cholecystectomy Family History Family History Mother Diabetes mellitus Breast cancer Sibling History of blood clots due to blood clot Heart disease Sister has something wrong with her heart Father Hypertension Prostate carcinoma Daughter , 06/08/2021, 19yo Pulmonary embolism Social History Social History Social History: She has 3 children, 1 . She is single. Her oldest daughter is a durable power speech language pathologist for healthcare. The patient desires to be a full code. Patient stated that she has 5 grandchildren and watches her granddaughter most of the time. Code status full code Smoking status: Never smoker Second hand tobacco smoke exposure: Yes Alcohol intake: former Substance use: former Substance use type: marijuana Do You Feel Safe in your Home?: Yes Lack of Transportation: YES Lack of Food: Never True Current Housing: I Have Housing Concerned About Future Housing: No Difficulty Paying Gas/Electric Bills: No Difficulty Paying for Meds: No Currently Unemployed: YES Education: High School Diploma/GED Difficulty w/ Childcare or Family Care: No Living arrangements: with family Additional living arrangements comments: with son Occupation/Education: other Additional occupation/education comments: 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, 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 Gender identity (if verbalized by the patient): Female Sexual Orientation (if Verbalized by the Patient): Straight or Heterosexual Spiritual care concerns: No Agree to blood products: Yes Meds Home Medications and Allergies Home Medications Medication Instructions Recorded Confirmed Type aspirin 81 mg chewable tablet 81 mg PO DAILY@0800 #30 tabs 05/05/22 01/06/24 Rx (Children's Aspirin) docusate sodium 100 mg capsule 100 mg PO Q12H PRN Constipation 03/13/23 11/13/24 Rx #30 caps labetalol 300 mg tablet 200 mg PO Q12H 07/28/22 01/06/24 History acetaminophen 500 mg capsule 1,000 mg PO Q6H PRN pain #20 caps 06/19/23 01/06/24 Rx amlodipine 5 mg tablet 5 mg PO DAILY 12/30/23 01/06/24 History atorvastatin 20 mg tablet 20 mg PO DAILY 12/30/23 01/06/24 History blood sugar diagnostic (Blood #100 ea 12/30/23 01/06/24 Rx Glucose Test strips) blood-glucose meter (Blood Glucose #1 ea 12/30/23 01/06/24 Rx Monitoring kit) fluticasone propionate 50 2 spray intranasal DAILY #48 mL 12/30/23 01/06/24 Rx mcg/actuation nasal spray,suspension (Flonase Allergy Relief) gabapentin 100 mg capsule 200 mg PO TID #540 caps 12/30/23 01/06/24 Rx hydralazine 10 mg tablet 100 mg PO BID 12/30/23 01/06/24 History insulin glargine 100 unit/mL (3 14 unit subcut DAILY 12/30/23 01/06/24 History mL) subcutaneous pen (Lantus Solostar U-100 Insulin) lancets 31 gauge #100 ea 12/30/23 01/06/24 Rx megestrol 40 mg tablet 40 mg PO DAILY 12/30/23 01/06/24 History prednisone 20 mg tablet 40 mg PO DAILY #10 tabs 12/30/23 01/06/24 Rx cholecalciferol (vitamin D3) 1,250 1,250 mcg PO DAILY 01/06/24 01/06/24 History mcg (50,000 unit) capsule sevelamer carbonate 800 mg tablet 1,600 mg PO TIDWM 01/06/24 01/06/24 History Allergies Allergy/AdvReac Type Severity Reaction Status Date / Time metronidazole Allergy Intermediate Rash Verified 01/06/24 06:48 omeprazole Allergy Intermediate Rash Verified 01/06/24 06:48 Vital Signs Vital Signs - 24 hr 01/06/24 00:15 01/06/24 04:11 01/06/24 04:45 Temperature 98.6 F Pulse Rate 91 96 104 H Respiratory Rate 20 18 Blood Pressure 231/91 H 214/104 H Pulse Oximetry 100 95 Oxygen Delivery Room Air 01/06/24 05:41 Temperature Pulse Rate 88 Respiratory Rate 12 Blood Pressure 164/78 H Pulse Oximetry 99 Oxygen Delivery Exam Narrative: AF HR 88 RR 15 SPO2 99 BP 153/75 General: obese female in no acute respiratory distress who is nontoxic appearing, sitting on the side of her bed HEENT: Normocephalic. Atraumatic. Extraocular movement intact. Sclera clear and anicteric. No facial asymmetry. Neck: Neck was supple. No dominant adenopathy, thyromegaly or masses. Chest: Lungs are coarse to auscultation bilaterally. No wheezes or crackles. CV: Heart was regular rate and rhythm. S1-S2. No murmurs, gallops, or rubs. Abd: Abdomen was soft. Nontender. Nondistended. Positive bowel sounds. No organomegaly or masses. Ext: No clubbing, cyanosis, or edema. 2+ DP pulses bilaterally. Neuro: Patient is alert and oriented x4. Strength is 5/5 in both upper and lower extremities. Cranial nerves 2-12 are intact. Speech is clear. Psych: Normal mood and affect. Patient is pleasant and cooperative. Skin: Warm and dry. No rashes noted. H&P: Results Labs Labs: Short CBC 01/06/24 Range/Units 00:10 WBC 11.8 H (4.5-10.0) K/mm3 Hgb 9.0 L (12.0-15.0) g/dL Hct 28.9 L (37.0-47.0) % Plt Count 221 (150-375) k/mm3 [facility] 01/06/24 00:10 Sodium 138 Potassium 4.7 Chloride 104 Carbon Dioxide 26 BUN 57 H Creatinine 12.50 H Glucose 100 Calcium 9.1 Cardiac Enzymes 01/06/24 Range/Units 00:10 Troponin I 0.014 (0.000-0.034) ng/mL Liver Function 01/06/24 Range/Units 00:10 Total Bilirubin 0.5 (0.2-1.3) mg/dL AST 49 H (14-36) U/L ALT 50 H (6-35) U/L Alkaline Phosphatase 216 H (38-126) U/L Albumin 3.7 (3.5-5.1) g/dL Assessment and Plan Assessment and plan (1) Pneumonia: Code(s): J18.9 - Pneumonia, unspecified organism Status: Acute Assessment and Plan: CXR: probable right middle lobe infiltrate - Risk Factors: RSV - Complicating Factors: PD - started on CAP tx: azithromycin ceftriaxone on 01/05 - Viral PCR: negative for Flu/COVID/RSV - no supplemental O2 requirement - supportive treatment tyl and ibu prn tesslon perles prn - Monitor vital signs, I&Os, neuro status and patient is a fall risk - Follow WBC, serum electrolytes, temperature curves and cultures (2) Anemia: Code(s): D64.9 - Anemia, unspecified Status: Chronic Assessment and Plan: H/H 11/20.9 on admission. No signs of active bleeding. - Iron panel: Iron 27, TIBC 178, % sat 15 Started on iron supplementation - B12 and folate pending - Monitor (3) Diabetes: Code(s): E11.9 - Type 2 diabetes mellitus without complications Status: Chronic Assessment and Plan: - hypoglycemia protocol - POC blood glucose ACHS - home medication - 14 units lantus daily (holding, patients glucose 36 on POC this am) - correct regimen ordered - low dose TIDWM - A1C 7 on 12/31/23 (4) End stage renal disease: Code(s): N18.6 - End stage renal disease Status: Chronic Assessment and Plan: Continue daily CCPD. Nephrology consulted Will have PD tonight (5) Hypertension: Code(s): I10 - Essential (primary) hypertension Status: Chronic Assessment and Plan: Chronic, well controlled on current medications. - Amlodipine 5 mg daily - Hydralazine 100 mg BID - Labetalol 200 mg BID - Monitor Quality VTE Prophylaxis VTE prophylaxis: mechanical ordered Hospitalist [facility] Advance Care Plan I have confirmed that the patient's Advanced Care Plan is present, code status is documented, or surrogate decision maker is listed in patient medical record.: Yes Medication Reconciliation I have utilized all available resources to obtain, update and review the patients current medications (includes all prescriptions, OTC, herbals, cannabis, and nutritional supplements).: Yes
[2024-01-06 07:23] LABS: Troponin I 0.013 ng/mL (0.000-0.034)
--- NOTE | 2024-01-06 07:26 | ADMGEN ---
This patient, Bakari Smith, was admitted to 2 Medical Room 261-01. Patient/family oriented to hospital policies and general routines including ID bracelet, bed and alarms, visiting hours, pain management, procedures, bathroom and other care routines, personal items, smoking policy, room service/diet, and visiting hours. Information on how to activate the Rapid Response Team has been discussed. Patient/Family are encouraged to report perceived risks to care and to ask questions if they do not understand what they are told or what they should do.
[2024-01-06 08:03] LABS: Glucose Point of Care 36 mg/dl (65-105)
[2024-01-06] MEDS: DEXTROSE 50% 25 GM/50 ML SYRINGE IV PUSH (08:07)
[2024-01-06 08:14] LABS: Troponin I 0.013 ng/mL (0.000-0.034)
[2024-01-06 08:30] LABS: Glucose Point of Care 118 mg/dl (65-105)
[2024-01-06] MEDS: SEVELAMER CARBONATE 800 MG TABLET 1600 MG PO ×3 (08:39→16:17)
[2024-01-06] MEDS: amLODIPine BESYLATE 5 MG TABLET PO (09:03)
[2024-01-06] MEDS: hydrALAZINE HCL 50 MG TABLET 100 MG PO ×2 (09:03→16:17)
[2024-01-06] MEDS: predniSONE 20 MG TABLET 40 MG PO (09:05)
[2024-01-06] MEDS: ATORVASTATIN 20 MG TABLET PO (09:05)
[2024-01-06] MEDS: MEGESTROL ACETATE (*CHEMO) 40 MG TABLET PO (09:06)
[2024-01-06] MEDS: GABAPENTIN 100 MG CAPSULE 200 MG PO ×3 (09:06→16:17)
[2024-01-06 09:11] LABS: Iron 27 ug/dL (37-170)
[2024-01-06 09:22] LABS: Percent Iron Saturation 15 % (20-50)
[2024-01-06 11:49] LABS: Glucose Point of Care 142 mg/dl (65-105)
--- NOTE | 2024-01-06 14:00 | P.CONNP_ITS ---
History of Present Illness Reason for Consult Consult date: 01/06/24 Reason for consult: end stage renal disease Chief Complaint Chief complaint: RSV pneumonia, generalized weakness, supportive ca PMFSH Past Medical History Medical History (Updated 01/06/24 @ 14:48 by Brenna Schneider PA-C) Arthritis Right wrist left knee Chronic kidney disease, stage 5 Diabetes Type 2 insulin-dependent Diverticulitis Dysphagia, oropharyngeal Erythropoietin deficiency anemia ESRD (end stage renal disease) Gastroesophageal reflux Hypertension Irritable bowel syndrome Morbid obesity Obesity (BMI 30-39.9) Peripheral neuropathy Peritoneal dialysis catheter in place Pneumonia Pyuria Requires peritoneal dialysis Surgical History Surgical History Delivery by section X3 History of salpingo-oophorectomy History of tubal ligation Hx of appendectomy Hx of cholecystectomy Family History Family History Mother Diabetes mellitus Breast cancer Sibling History of blood clots due to blood clot Heart disease Sister has something wrong with her heart Father Hypertension Prostate carcinoma Daughter , 06/08/2021, 19yo Pulmonary embolism Social History Social History Social History: She has 3 children, 1 . She is single. Her oldest daughter is a durable power document review attorney for healthcare. The patient desires to be a full code. Patient stated that she has 5 grandchildren and watches her granddaughter most of the time. Code status full code Smoking status: Never smoker Second hand tobacco smoke exposure: Yes Alcohol intake: former Substance use: former Substance use type: marijuana Do You Feel Safe in your Home?: Yes Lack of Transportation: YES Lack of Food: Never True Current Housing: I Have Housing Concerned About Future Housing: No Difficulty Paying Gas/Electric Bills: No Difficulty Paying for Meds: No Currently Unemployed: YES Education: High School Diploma/GED Difficulty w/ Childcare or Family Care: No Living arrangements: with family Additional living arrangements comments: with son Occupation/Education: other Additional occupation/education comments: disabled, 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 Gender identity (if verbalized by the patient): Female Sexual Orientation (if Verbalized by the Patient): Straight or Heterosexual Spiritual care concerns: No Agree to blood products: Yes Meds Home Medications and Allergies Home Medications Medication Instructions Recorded Confirmed Type aspirin 81 mg chewable tablet 81 mg PO DAILY@0800 #30 tabs 05/05/22 01/06/24 Rx (Children's Aspirin) docusate sodium 100 mg capsule 100 mg PO Q12H PRN Constipation 05/05/22 01/06/24 Rx #30 caps labetalol 300 mg tablet 200 mg PO Q12H 07/28/22 01/06/24 History acetaminophen 500 mg capsule 1,000 mg PO Q6H PRN pain #20 caps 06/19/23 01/06/24 Rx amlodipine 5 mg tablet 5 mg PO DAILY 12/30/23 01/06/24 History atorvastatin 20 mg tablet 20 mg PO DAILY 12/30/23 01/06/24 History blood sugar diagnostic (Blood #100 ea 12/30/23 01/06/24 Rx Glucose Test strips) blood-glucose meter (Blood Glucose #1 ea 12/30/23 01/06/24 Rx Monitoring kit) fluticasone propionate 50 2 spray intranasal DAILY #48 mL 12/30/23 01/06/24 Rx mcg/actuation nasal spray,suspension (Flonase Allergy Relief) gabapentin 100 mg capsule 200 mg PO TID #540 caps 12/30/23 01/06/24 Rx hydralazine 10 mg tablet 100 mg PO BID 12/30/23 01/06/24 History insulin glargine 100 unit/mL (3 14 unit subcut HS 12/30/23 01/06/24 History mL) subcutaneous pen (Lantus Solostar U-100 Insulin) lancets 31 gauge #100 ea 12/30/23 01/06/24 Rx megestrol 40 mg tablet 40 mg PO DAILY 12/30/23 01/06/24 History prednisone 20 mg tablet 40 mg PO DAILY #10 tabs 12/30/23 01/06/24 Rx cholecalciferol (vitamin D3) 1,250 1,250 mcg PO DAILY 01/06/24 01/06/24 History mcg (50,000 unit) capsule sevelamer carbonate 800 mg tablet 1,600 mg PO TIDWM 01/06/24 01/06/24 History amoxicillin 875 mg-potassium 1 tablet PO Q12H #12 tabs 01/07/24 Rx clavulanate 125 mg tablet azithromycin 500 mg tablet 500 mg PO DAILY 6 days #6 tabs 01/07/24 Rx Allergies Allergy/AdvReac Type Severity Reaction Status Date / Time metronidazole Allergy Intermediate Rash Verified 01/06/24 06:48 omeprazole Allergy Intermediate Rash Verified 01/06/24 06:48 Vital Signs Vital Signs - 24 hr 01/06/24 16:00 01/06/24 21:08 01/06/24 23:10 Temperature 98.0 F 98.2 F Pulse Rate 98 92 89 Respiratory Rate 18 18 Blood Pressure 176/89 H 163/77 H Pulse Oximetry 96 100 Oxygen Delivery 01/06/24 21:00 01/07/24 05:13 Temperature 98.1 F Pulse Rate 85 Respiratory Rate 18 Blood Pressure 176/89 H Pulse Oximetry 99 Oxygen Delivery Room Air Results Lab Results 01/07/24 05:22 01/07/24 05:22 Lab results: Most recent lab results Calcium 9.7 mg/dL (8.4-10.2) 01/07/24 05:22
[2024-01-06] MEDS: AZITHROMYCIN 500 MG/NS 250 ML 500 MG/250 ML BAG 250 MG IVPB (15:16)
[2024-01-06] MEDS: BENZONATATE 100 MG CAPSULE PO (16:17)
[2024-01-06] MEDS: FERROUS SULFATE 325 MG TABLET DR PO (16:18)
[2024-01-06 16:56] LABS: Glucose Point of Care 314 mg/dl (65-105)
[2024-01-06] MEDS: INSULIN ASPART (*BKC) 100 UNITS/ML SUB-Q (17:22)
[2024-01-06 20:41] LABS: Glucose Point of Care 295 mg/dl (65-105)
[2024-01-06] MEDS: LABETALOL HCL 100 MG TABLET 200 MG PO (21:08)
[2024-01-06] MEDS: INSULIN GLARGINE (*BKC) 100 UNITS/ML 12 UNITS SUB-Q (22:10)
[2024-01-06 22:57] LABS: Folic Acid 6.6 ng/mL (2.76->20)
--- NOTE | 2024-01-06 23:42 | PC.NURSE ---
When assessing pt at approx. 2100, pt very upset because we (staff) are not giving her her Lantus (takes 14 units) and her blood glucose level tonight is 295. Pt also stated she is not happy about being on a sliding scale only. Pt was explained by multiple staff members that the day providers were probably holding off on the Lantus because her blood glucose this morning was in the 30s. Pt still remained unhappy after explanation, and became emotional because she is on a kidney transplant list. Pt explained to me how much effort she has put into maintaining her blood glucose levels and is worried about her A1C coming up again. Told pt that I would speak to the hospitalist that was on tonight to see if any insulin can be given whether it be her Lantus or a sliding scale as before. I first talked with Melissa Blackmon @2120 and explained the situation. Melissa said she did not want to give pt any insulin at this time, because the day providers have already made the plan of care and she did not want to deviate from it. Had another nurse talk to pt again about the situation. Pt still upset and asking for her Lantus to be given. Called the second hospitalist that was on for tonight, Dr. Atkins @2134 and explained pt's situation. Dr. Atkins agreeable to restarting pt's Lantus after hearing her evening and night levels but did state will decrease the dose by two units for precaution. Dr. Atkins put in orders for Lantus 12 units to be given tonight and to be continued HS.
--- NOTE | 2024-01-07 03:22 | PC.NURSE ---
Entered pt's room to hand her requested items to wash up. Noted pt removed herself from peritoneal dialysis device. Pt had mentioned to dialysis nurse, dayshift nurse and I that she would disconnect herself from peritoneal device once dialysis was completed. Pt was educated on importance of staying on the dialysis machine until dialysis nurse comes in in the morning to maintain peritoneal site, reduce the risk of further infection(s), and maintaining the dialysis machine. Pt stated at the time of assessment she does dialysis every night with a machine exactly like the one being used so there would be no issues with removing herself from it.
[2024-01-07 04:29] LABS: Glucose Point of Care 227 mg/dl (65-105)
[2024-01-07 05:13] VITALS: BP 176/89; PULSE 85; RESP 18; TEMP 36.7; O2SAT 99
[2024-01-07 06:01] LABS: Basophils Absolute Auto 0.1 K/mm3 (0.0-0.1); Basophils Percent Auto 0.6 % (0.2-1.2); Eosinophils Percent Auto 0.1 % (0-4.4); Hematocrit 28.8 % (37.0-47.0); Hemoglobin 8.9 g/dL (12.0-15.0); Immature Granulocyte Percent A 0.8 % (0-0.5); Lymphocytes Absolute Auto 1.53 K/mm3 (0.9-3.2); Lymphocytes Percent Auto 11.6 % (18.3-44.2); Mean Corpuscular HGB Conc 30.9 g/dl (32-36); Mean Corpuscular Hemoglobin 27.3 pg (26-34); Mean Corpuscular Volume 88.3 fl (80-100); Mean Platelet Volume 10.2 fl (7.4-10.4); Monocytes Percent Auto 7.8 % (2.6-8.5); Neutrophils Absolute Auto 10.4 K/mm3 (1.3-6.7); Neutrophils Percent Auto 79.1 % (45.5-73.1); Platelet Count Result 245 k/mm3 (150-375); Red Blood Count 3.26 M/mm3 (4.2-5.4); Red Cell Distribution Width 14.3 % (11.5-14.5); White Blood Count 13.2 K/mm3 (4.5-10.0)
[2024-01-07 06:23] LABS: Alanine Aminotransferase 40 U/L (6-35); Albumin Level 3.5 g/dL (3.5-5.1); Alkaline Phosphatase 168 U/L (38-126); Anion Gap 11 mmol/L (4-12); Aspartate Amino Transferase 33 U/L (14-36); Bilirubin,Total 0.4 mg/dL (0.2-1.3); Blood Urea Nitrogen 61 mg/dL (7-17); Calcium 9.7 mg/dL (8.4-10.2); Carbon Dioxide 24 mmol/L (22-30); Chloride 99 mmol/L (98-107); Estimated CRCL calculation 5 ml/min; Estimated Glomerular Filt Rate 4; Glucose 214 mg/dL (65-110); Potassium 4.5 mmol/L (3.4-5.0); Sodium 134 mmol/L (137-145)
--- NOTE | 2024-01-07 08:18 | PM.IMPN ---
Progress Note: A&P Assessment and Plan (1) Pneumonia: Code(s): J18.9 - Pneumonia, unspecified organism Status: Acute Assessment and Plan: CXR: probable right middle lobe infiltrate - Risk Factors: RSV - Complicating Factors: PD - started on CAP tx: azithromycin ceftriaxone on 01/05 - Viral PCR: negative for Flu/COVID/RSV - no supplemental O2 requirement - supportive treatment tyl and ibu prn tesslon perles prn - Monitor vital signs, I&Os, neuro status and patient is a fall risk - Follow WBC, serum electrolytes, temperature curves and cultures (2) Anemia: Code(s): D64.9 - Anemia, unspecified Status: Chronic Assessment and Plan: H/H 11/20.9 on admission. No signs of active bleeding. - Iron panel: Iron 27, TIBC 178, % sat 15 Started on iron supplementation - B12 and folate pending - Monitor (3) Diabetes: Code(s): E11.9 - Type 2 diabetes mellitus without complications Status: Chronic Assessment and Plan: - hypoglycemia protocol - POC blood glucose ACHS - home medication - 14 units lantus daily (holding, patients glucose 36 on POC this am) - correct regimen ordered - low dose TIDWM - A1C 7 on 12/31/23 (4) End stage renal disease: Code(s): N18.6 - End stage renal disease Status: Chronic Assessment and Plan: Continue daily CCPD. Nephrology consulted Will have PD tonight (5) Hypertension: Code(s): I10 - Essential (primary) hypertension Status: Chronic Assessment and Plan: Chronic, well controlled on current medications. - Amlodipine 5 mg daily - Hydralazine 100 mg BID - Labetalol 200 mg BID - Monitor Subjective Date/time seen: 01/07/24 08:18 Interval history: Phone call was received from patients RN stating that patient is angry and wishing to leave AMA. Reported to patients room at that time and found her dressed in her clothes sitting on the side of the bed tearful and yelling that she wants to go home. Discussed with patient that she is being treated for pneumonia and had an elevated white count on this mornings labs. To which she replied she does not care and wants to leave. Also discussed that the patient had high blood pressures into the 200 systolic overnight which puts her at risk of stroke. To which she again replied she does not care and that I need to stop talking to her. Prior to patient leaving I again told her that it would be beneficial for her to stay for treatment and that leaving puts her at risk of worsening infection vs stroke vs other all the way up to and including . She stated that she understands and still wishes to leave. I told her I would send oral antibiotics to her pharmacy to complete her course for the pneumonia and that she needs to follow up with her PCP about the blood pressures. She then signed the AMA paperwork and immediately left. Final Diagnosis: pneumonia, anemia, diabetes, ESRD, HTN Review of Systems Review of Systems: All systems reviewed & are unremarkable except as noted in HPI and below Exam Narrative: AF HR 85 RR 18 SpO2 99 BP 176/89 General: obese female in no acute respiratory distress who is nontoxic appearing, sitting on the side of her bed HEENT: Extraocular movement intact. Sclera clear and anicteric. No facial asymmetry. Chest: Normal chest rise and fall. Speaking full sentences. CV: Deferred do to patients refusal. GI: Deferred due to patients refusal. Neuro: Patient is alert and oriented x4. Speech is clear. Psych: Normal mood and affect. Patient is angry and tearful repeated shouting that she wants to go home. Objective Data Vital Signs Vital Signs: Vital Signs - 24 hr 01/06/24 16:00 01/06/24 21:08 01/06/24 23:10 Temperature 98.0 F 98.2 F Pulse Rate 98 92 89 Respiratory Rate 18 18 Blood Pressure 176/89 H 163/77 H Pulse Oximetry 96 100 Oxygen Delivery 01/06/24 21:00 01/07/24 05:13 Temperature 98.1 F Pulse Rate 85 Respiratory Rate 18 Blood Pressure 176/89 H Pulse Oximetry 99 Oxygen Delivery Room Air Intake/Output Intake/Output: Intake & Output 01/04/24 01/05/24 01/06/24 01/07/24 23:59 23:59 23:59 23:59 Intake Total 1570 200 Balance 1570 200 Meds/Results Medications: Active Medications Generic Name Dose Route Start Last Admin Trade Name Freq PRN Reason Stop Dose Admin Acetaminophen 650 mg 01/06/24 06:06 01/06/24 22:51 Acetaminophen 325 Mg Tablet PO 650 mg Q4H PRN Administration Mild Pain (1-3) or Fever Amlodipine Besylate 5 mg 01/06/24 09:00 01/06/24 09:03 Amlodipine Besylate 5 Mg Tablet PO 5 mg DAILY CHAYO Administration Aspirin 81 mg 01/07/24 08:00 Aspirin 81 Mg Chewable Tablet PO DAILY@0800 [facility] Atorvastatin Calcium 20 mg 01/06/24 09:00 01/06/24 09:05 Atorvastatin 20 Mg Tablet PO 20 mg DAILY CHAYO Administration Benzonatate 100 mg 01/06/24 17:00 01/06/24 16:17 Benzonatate 100 Mg Capsule PO 100 mg TID CHAYO Administration Dextrose 12.5 gm 01/06/24 08:03 01/06/24 08:07 Dextrose 50% 25 Gm/50 Ml Syringe IV PUSH 12.5 gm PRN PRN Administration Hypoglycemia Protocol Dextrose 12.5 gm 01/06/24 08:27 Dextrose 50% 25 Gm/50 Ml Syringe IV PUSH PRN PRN Hypoglycemia Protocol Ergocalciferol units 01/06/24 09:00 Ergocalciferol 50,000 Units Capsule PO DAILY CHAYO Ferrous Sulfate 325 mg 01/06/24 17:00 01/06/24 16:18 Ferrous Sulfate [address] PO 325 mg BID CHAYO Administration Fluticasone Propionate 2 spray 01/07/24 09:00 Fluticasone Propionate 0.05% Na Spr 16 Gm Btl (*Bkc) NASAL DAILY CHAYO Gabapentin 200 mg 01/06/24 09:00 01/06/24 16:17 Gabapentin 100 Mg Capsule PO 200 mg TID CHAYO Administration Glucagon 1 mg 01/06/24 08:03 Glucagon For Inj 1 Mg Vial IM PRN PRN Hypoglycemia Protocol Glucagon 1 mg 01/06/24 08:27 Glucagon For Inj 1 Mg Vial IM PRN PRN Hypoglycemia Protocol Glucose 15 gm 01/06/24 08:03 Glucose Oral Gel 15 Gm Of Glucse In 37.5 Gm Tube PO PRN PRN Hypoglycemia Protocol Glucose 15 gm 01/06/24 08:27 Glucose Oral Gel 15 Gm Of Glucse In 37.5 Gm Tube PO PRN PRN Hypoglycemia Protocol Hydralazine HCl 100 mg 01/06/24 09:00 01/06/24 16:17 Hydralazine Hcl 50 Mg Tablet PO 100 mg BID CHAYO Administration Dextrose 1,000 mls @ 100 mls/hr 01/06/24 08:03 Dextrose 5% 1,000 Ml IVPB PRN PRN Hypoglycemia Protocol Dextrose 1,000 mls @ 100 mls/hr 01/06/24 08:27 Dextrose 5% 1,000 Ml IVPB PRN PRN Hypoglycemia Protocol Azithromycin 500 mg in 250 mls @ 250 mls/hr 01/06/24 14:00 01/06/24 16:16 Zithromax IVPB Infused Q24H CHAYO Infusion Ceftriaxone Sodium 1 gm in 50 mls @ 100 mls/hr 01/06/24 14:00 01/06/24 15:46 Rocephin 1 Gm/Ns 50 Ml IVPB Infused Q24H CHAYO Infusion Insulin Aspart 2 - 5 units 01/06/24 08:35 01/06/24 17:22 Insulin Aspart (*Bkc) 100 Units/Ml SUB-Q 4 units TIDWM CHAYO Administration Protocol Insulin Glargine 12 units 01/07/24 21:00 Insulin Glargine (*Bkc) 100 Units/Ml SUB-Q HS CHAYO Labetalol HCl 200 mg 01/06/24 21:00 01/06/24 21:08 Labetalol Hcl 100 Mg Tablet PO 200 mg Q12HR CHAYO Administration Megestrol Acetate 40 mg 01/06/24 09:00 01/06/24 09:06 Megestrol Acetate (*Chemo) 40 Mg Tablet PO 40 mg DAILY CHAYO Administration Miscellaneous Information 0 each 01/06/24 00:01 Vit D Is A Weekly Dose- Clarify Day Due. XX 02/05/24 00:00 CLARIFY CHAYO Ondansetron HCl 4 mg 01/06/24 06:06 Ondansetron Inj 4 Mg/2 Ml Vial IV PUSH Q4H PRN Nausea Perflutren Lipid Microsphere 0 ml 01/06/24 08:31 Perflutren Lipid Microspheres 1.5 Ml Vial Diluted To 10 Ml Total Volume IV PUSH 01/09/24 08:31 ONCE PRN adequate visualization Protocol Prednisone 40 mg 01/06/24 09:00 01/06/24 09:05 Prednisone 20 Mg Tablet PO 40 mg DAILY CHAYO Administration Sevelamer Carbonate 1,600 mg 01/06/24 08:30 01/06/24 16:17 Sevelamer Carbonate 800 Mg Tablet PO 1,600 mg TIDWM CHAYO Administration Radiology Results: ITS Impressions Chest X-Ray 01/05/24 23:43 IMPRESSION: Probable right middle lobe infiltrate Labs Labs: Laboratory Results - last 24 hr 01/06/24 01/06/24 01/06/24 07:45 08:26 11:43 WBC RBC Hgb Hct MCV MCH MCHC RDW Plt Count MPV Immature Gran % (Auto) Neut % (Auto) Lymph % (Auto) Walker % (Auto) Eos % (Auto) Baso % (Auto) Lymph # (Auto) Walker # (Auto) Eos # (Auto) Baso # (Auto) Abs Immat Gran (auto) Absolute Neuts (auto) Absolute Nucleated RBC Nucleated RBC % Sodium Potassium Chloride Carbon Dioxide Anion Gap BUN Creatinine Estim Creat Clear Calc Estimated GFR Glucose POC Capillary Glucose 118 H 142 H Calcium Iron 27 L TIBC 178 L % Saturation 15 L Total Bilirubin AST ALT Alkaline Phosphatase Total Protein Albumin Vitamin B12 732.0 Folate 6.6 01/06/24 01/06/24 01/07/24 16:48 20:20 04:24 WBC RBC Hgb Hct MCV MCH MCHC RDW Plt Count MPV Immature Gran % (Auto) Neut % (Auto) Lymph % (Auto) Walker % (Auto) Eos % (Auto) Baso % (Auto) Lymph # (Auto) Walker # (Auto) Eos # (Auto) Baso # (Auto) Abs Immat Gran (auto) Absolute Neuts (auto) Absolute Nucleated RBC Nucleated RBC % Sodium Potassium Chloride Carbon Dioxide Anion Gap BUN Creatinine Estim Creat Clear Calc Estimated GFR Glucose POC Capillary Glucose 314 H 295 H 227 H Calcium Iron TIBC % Saturation Total Bilirubin AST ALT Alkaline Phosphatase Total Protein Albumin Vitamin B12 Folate 01/07/24 05:22 WBC 13.2 H RBC 3.26 L Hgb 8.9 L Hct 28.8 L MCV 88.3 MCH 27.3 MCHC 30.9 L RDW 14.3 Plt Count 245 MPV 10.2 Immature Gran % (Auto) 0.8 H Neut % (Auto) 79.1 H Lymph % (Auto) 11.6 L Walker % (Auto) 7.8 Eos % (Auto) 0.1 Baso % (Auto) 0.6 Lymph # (Auto) 1.53 Walker # (Auto) 1.0 H Eos # (Auto) 0.0 Baso # (Auto) 0.1 Abs Immat Gran (auto) 0.10 H Absolute Neuts (auto) 10.4 H Absolute Nucleated RBC 0.000 Nucleated RBC % 0.0 Sodium 134 L Potassium 4.5 Chloride 99 Carbon Dioxide 24 Anion Gap 11 BUN 61 H Creatinine 13.20 H Estim Creat Clear Calc 5 Estimated GFR 4 L Glucose 214 H POC Capillary Glucose Calcium 9.7 Iron TIBC % Saturation Total Bilirubin 0.4 AST 33 ALT 40 H Alkaline Phosphatase 168 H Total Protein 7.0 Albumin 3.5 Vitamin B12 Folate Quality VTE Prophylaxis VTE prophylaxis: mechanical ordered
--- NOTE | 2024-01-07 10:12 | PC.NURSE ---
Patient called out therapeutic recreation leader light around 8am screaming and crying that she was going home and would be signing out AMA. RN notified charge nurse and got an AMA form ready, RN then notified provider. Provider and RN entered patient room together, patient was tearful and extremely agitated. The provider attempted to educate the patient about the risks of signing out AMA, however, the patient would not listen to the provider and yelled repeatedly that she did not want to hear what she had to say, and that she was ready to go. RN removed patient's IV access and showed the patient out of the unit.
== END 2024-01-07 08:15 | disposition left against medical advice (07) | DRG 193 ==
LOC: ANHED 01-06 03:49 → ANH2MED 01-06 06:33
PROVIDERS: Admitting Provider Internal Medicine; Emergency Provider Student in an Organized Health Care Education/Training Program; PCP Nurse Practitioner Family; Visit Provider Student in an Organized Health Care Education/Training Program
DX: J12.1 Respiratory syncytial virus pneumonia (principal); N18.6 End stage renal disease; I12.0 Hypertensive chronic kidney disease with stage 5 chronic kidney disease or end stage renal disease; E11.22 Type 2 diabetes mellitus with diabetic chronic kidney disease; D64.9 Anemia, unspecified; E11.42 Type 2 diabetes mellitus with diabetic polyneuropathy; M19.031 Primary osteoarthritis, right wrist; Z20.822 Contact with and (suspected) exposure to COVID-19; E66.9 Obesity, unspecified; Z68.34 Body mass index [BMI] 34.0-34.9, adult; Z86.73 Personal history of transient ischemic attack (TIA), and cerebral infarction without residual deficits; Z90.49 Acquired absence of other specified parts of digestive tract; Z90.722 Acquired absence of ovaries, bilateral; Z79.82 Long term (current) use of aspirin; Z99.2 Dependence on renal dialysis
CPT/HCPCS: 36415; 71046; 80053; 82607; 82746; 82948; 83540; 83550; 83690; 83880; 84484; 85025; 85610; 85730; 87637; 90945; 93005; 93306; 96374; 99285; A9270; G0378; J0456; J0696; J1815; J7512

== ENCOUNTER 2024-01-18 12:01 | Outpatient (CLI) | payer MEDICARE, MEDICAID, SELFPAY ==
[2024-01-18 13:37] LABS: Basophils Absolute Auto 0.1 K/mm3 (0.0-0.1); Eosinophils Absolute Auto 0.5 K/mm3 (0-0.3); Eosinophils Percent Auto 4.8 % (0-4.4); Hematocrit 30.3 % (37.0-47.0); Hemoglobin 9.1 g/dL (12.0-15.0); Immature Granulocyte Percent A 0.9 % (0-0.5); Lymphocytes Absolute Auto 2.72 K/mm3 (0.9-3.2); Mean Corpuscular Hemoglobin 26.9 pg (26-34); Mean Corpuscular Volume 89.6 fl (80-100); Mean Platelet Volume 9.7 fl (7.4-10.4); Monocytes Absolute Auto 0.6 K/mm3 (0.1-0.6); Monocytes Percent Auto 5.3 % (2.6-8.5); Neutrophils Absolute Auto 7.3 K/mm3 (1.3-6.7); Platelet Count Result 274 k/mm3 (150-375); Red Blood Count 3.38 M/mm3 (4.2-5.4); Red Cell Distribution Width 14.8 % (11.5-14.5); White Blood Count 11.3 K/mm3 (4.5-10.0)
== END 2024-01-18 12:02 | disposition home or self-care (01) ==
PROVIDERS: PCP Nurse Practitioner Family; Visit Provider Nurse Practitioner Obstetrics & Gynecology
DX: N93.9 Abnormal uterine and vaginal bleeding, unspecified (principal); I10 Essential (primary) hypertension
CPT/HCPCS: 36415; 82670; 83001; 84443; 85025

== ENCOUNTER 2024-02-03 15:23 | Outpatient (CLI) | payer MEDICARE, MEDICAID, SELFPAY ==
--- NOTE | ~2024-02-03 | US_ITS ---
EXAMINATION: US pelvic complete w TV DATE: 02/03/2024 16:20 INDICATION: Abnormal uterine and vaginal bleeding. TECHNIQUE: Multiple transabdominal and transvaginal sonographic images of the pelvis were obtained. COMPARISON: CT abdomen and pelvis 06/14/2022 FINDINGS: TRANSABDOMINAL ULTRASOUND: The uterus measures 13.3 x 4.4 x 5.7 cm. There is a small volume of ascites. TRANSVAGINAL ULTRASOUND: The endometrial complex measures 8 mm in thickness. The ovaries are not visualized. IMPRESSION: 1. Normal uterus. 2. Ovaries not visualized. 3. Small volume of ascites. Reviewed, dictated and finalized at location A. [facility]
== END 2024-02-03 15:24 | disposition home or self-care (01) ==
PROVIDERS: PCP Nurse Practitioner Family; Visit Provider Nurse Practitioner Obstetrics & Gynecology
DX: N93.9 Abnormal uterine and vaginal bleeding, unspecified (principal)
CPT/HCPCS: 76830; 76856

== ENCOUNTER 2024-03-05 15:28 | Inpatient (IN) | payer MEDICARE, MEDICAID, SELFPAY ==
--- NOTE | ~2024-03-05 | CT_ITS ---
EXAMINATION: CT abdomen pelvis wo con DATE: 03/06/2024 02:23 INDICATION: Abdominal pain TECHNIQUE: Computed tomography (CT) of the chest, abdomen, and pelvis was performed without intraveno us contrast. Automated exposure control and iterative reconstruction technique were employed. Exam do se: 751.92 mGy-cm total exam DLP. COMPARISON: 02/03/[address] abdomen pelvis FINDINGS: The lung bases are clear. Mild cardiomegaly. No pericardial or pleural effusion. Right ventral abdominal wall placed dialysis catheter. There is mild ascites. Status post cholecystectomy. No bile duct or pancreatic duct dilatation. No hepatic, splenic, pancreatic, adrenal spacing of a mass lesion. 1.3 cm medial upper pole right renal cyst. No other renal space-occupying mass lesion. There is calcification of the abdominal aorta. There is extensive calcification of the renal arteries in addition to prominent celiac, splenic, superior mesenteric, inferior mesenteric artery calcificat ion. No abdominal aortic aneurysm. No intraperitoneal or retroperitoneal or pelvic mass lesion or adenopathy. The uterus and adnexal areas are unremarkable. No bowel obstruction or intraperitoneal free air. No suspicious osteolytic or osteoblastic lesions. IMPRESSION: Peritoneal dialysis catheter and mild ascites Mild cardiomegaly Status post cholecystectomy 1.3 cm medial upper pole right renal cyst Extensive atherosclerosis Reviewed, dictated and finalized at [facility] Reviewed, dictated and finalized at [facility]. [place] SUPPORT EQUIPMENT ASSEMBLER
[2024-03-05 15:30] VITALS: BP 200/92; RESP 22; TEMP 31.1; O2SAT 100
[2024-03-05 17:59] VITALS: PULSE 91
--- NOTE | 2024-03-05 17:59 | ED_ITS ---
HPI - Abdominal Pain General Chief Complaint: Abdominal Pain <Raisa Lima PA-C - Last Filed: 03/06/24 02:24> Stated Complaint: abd pain, back pain <Raisa Lima PA-C - Last Filed: 03/06/24 02:24> Time Seen by Provider: 03/05/24 17:59 <Raisa Lima PA-C - Last Filed: 03/06/24 02:24> Focused HPI: This is a 43 year old female that presents to the ER for abdominal pain. Ongoing since waking up from a nap today. Reports she does peritoneal dialysis. Her fluid was cloudy, she is concerned she may have peritonitis. Her band builder is Dr. Fernandez. GENERAL: Uncomfortable, well-nourished, and in no acute distress. HEAD: Normocephalic, atraumatic. CHEST: Clear to auscultation. ?No respiratory distress. HEART: Regular rate and rhythm.? NEURO: ?Alert and oriented x3. Patient screened in triage and initial orders placed.? ?Additional care and disposition to be based upon?diagnostic testing and treatment. <Raisa Lima PA-C - Last Filed: 03/06/24 02:24> Related Data Home Medications: Home Medications ?Medication ?Instructions ?Recorded ?Confirmed ?Last Taken ?Type labetalol 300 mg tablet 200 mg PO Q12H 07/28/22 02/04/24 Unknown History amlodipine 5 mg tablet 5 mg PO DAILY 12/30/23 02/04/24 Unknown History atorvastatin 20 mg tablet 20 mg PO DAILY 12/30/23 02/04/24 Unknown History megestrol 40 mg tablet 40 mg PO DAILY 12/30/23 02/04/24 Unknown History cholecalciferol (vitamin D3) 1,250 1,250 mcg PO DAILY 01/06/24 02/04/24 Unknown History mcg (50,000 unit) capsule sevelamer carbonate 800 mg tablet 1,600 mg PO TIDWM 01/06/24 02/04/24 Unknown History <CHLOÉ Leal Last Filed: 03/06/24 02:24> Allergies/Adverse Reactions: Allergies Allergy/AdvReac Type Severity Reaction Status Date / Time metronidazole Allergy Intermediate Rash Verified 02/22/24 14:47 omeprazole Allergy Intermediate Rash Verified 02/22/24 14:47 <Raisa Lima PA-C - Last Filed: 03/06/24 02:24> Review of Systems 2 Review of Systems: CONSTITUTIONAL: Denies fever GASTROINTESTINAL: Reports abdominal pain. Denies vomiting, or diarrhea. GENITOURINARY: Denies dysuria or hematuria. <Raisa Lima PA-C - Last Filed: 03/06/24 02:24> All systems reviewed & are unremarkable except as noted in HPI and below < Raisa Lima PA-C - Last Filed: 03/06/24 02:24> [facility]LY [facility] Past Medical History Medical History: Medical History Peritoneal dialysis catheter in place Requires peritoneal dialysis ESRD (end stage renal disease) Obesity (BMI 30-39.9) Dysphagia, oropharyngeal Morbid obesity Chronic kidney disease, stage 5 Pyuria Erythropoietin deficiency anemia Gastroesophageal reflux Arthritis Right wrist left knee Irritable bowel syndrome Diverticulitis Pneumonia Peripheral neuropathy Diabetes Hypertension <Raisa Lima PA-C - Last Filed: 03/06/24 02:24> Surgical History Surgical History: Surgical History Hx of cholecystectomy History of salpingo-oophorectomy Delivery by section X3 History of tubal ligation Hx of appendectomy <Raisa Lima PA-C - Last Filed: 03/06/24 02:24> Family History Family History: Family History Mother Diabetes mellitus Breast cancer Sibling History of blood clots due to blood clot Heart disease Sister has something wrong with her heart Father Hypertension Prostate carcinoma Daughter , 06/08/2021, 19yo Pulmonary embolism <CHLOÉ Leal Last Filed: 03/06/24 02:24> Social History Social History: Social History Social History: She has 3 children, 1 . She is single. Her oldest daughter is a durable power civil attorney for healthcare. The patient desires to be a full code. Patient stated that she has 5 grandchildren and watches her granddaughter most of the time. Code status full code Smoking status: Never smoker Second hand tobacco smoke exposure: Yes Alcohol intake: former Substance use: former Substance use type: marijuana Do You Feel Safe in your Home?: Yes Lack of Transportation: YES Lack of Food: Never True Current Housing: I Have Housing Concerned About Future Housing: No Difficulty Paying Gas/Electric Bills: No Difficulty Paying for Meds: No Currently Unemployed: YES Education: High School Diploma/GED Difficulty w/ Childcare or Family Care: No Living arrangements: with family Additional living arrangements comments: with son Occupation/Education: other Additional occupation/education comments: 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 HEAD: Normocephalic, atraumatic. EYES: EOMI. CHEST: Clear to auscultation. No respiratory distress. No wheezes rales or rhonchi HEART: Regular rate and rhythm. No murmur heard. Normal peripheral pulses. ABDOMEN: Soft, nondistended, normal active bowel sounds. Tender to palpation throughout the abdomen, without guarding EXTREMITIES: Normal range of motion. No edema. SKIN: Warm, dry, no rash. NEURO: No focal deficits. Alert and oriented x3. PSYCH: Normal mood and affect <Raisa Lima PA-C - Last Filed: 03/06/24 02:24> Course Course Emergency Course: patient updated on her workup and recommendation for admission <Raisa Lima PA-C - Last Filed: 03/06/24 02:24> LABORATORY GENETICIST/PA Physician Supervision For this patient encounter, I reviewed the LABORATORY GENETICIST or PA documentation, treatment plan, and medical decision making; and I had [id number] time with this patient. <Fadi Lofton MD - Last Filed: 03/06/24 06:58> Consultations Consultation #1: spoke with hospitalist about patient and workup who accepts admission < Raisa Lima PA-C - Last Filed: 03/06/24 02:24> Date: 03/06/24 <Raisa Lima PA-C - Last Filed: 03/06/24 02:24> Vital Signs Vital signs: Vital Signs Temperature 88 F L 03/05/24 15:30 Respiratory Rate 22 H 03/05/24 15:30 Blood Pressure 200/92 H 03/05/24 15:30 Pulse Oximetry 100 03/05/24 15:30 Temperature 99.6 F 03/05/24 23:39 Pulse Rate 75 03/06/24 05:33 Respiratory Rate 16 03/06/24 05:33 Blood Pressure 177/83 H 03/06/24 05:33 Pulse Oximetry 100 03/06/24 05:33 <Raisa Lima PA-C - Last Filed: 03/06/24 02:24> Vital Signs Temperature 88 F L 03/05/24 15:30 Respiratory Rate 22 H 03/05/24 15:30 Blood Pressure 200/92 H 03/05/24 15:30 Pulse Oximetry 100 03/05/24 15:30 Temperature 99.6 F 03/05/24 23:39 Pulse Rate 75 03/06/24 05:33 Respiratory Rate 16 03/06/24 05:33 Blood Pressure 177/83 H 03/06/24 05:33 Pulse Oximetry 100 03/06/24 05:33 <Fadi Lofton MD - Last Filed: 03/06/24 06:58> MDM - Abdominal Pain MDM Narrative Medical decision making narrative: Patient presents the emergency department for abdominal pain. History of ESRD on peritoneal dialysis. Blood pressure elevated upon arrival to 200 systolic, this down trended with management of her pain. Of note a temperature of 88 was initially documented, which was a mistake. Patient is afebrile. CBC with leukocytosis to 11.1. Hemoglobin is stable. CRP mildly elevated. Lactic acid is not elevated. Metabolic panel with evidence of patient's end-stage renal disease. Peritoneal fluid with 31,357 nucleated cells, 80% neutrophils. Blood cultures and peritoneal fluid culture obtained. Patient started on IV antibiotics. Spoke with hospitalist about patient and workup who accepts admission <Raisa Lima PA-C - Last Filed: 03/06/24 02:24> Differential Diagnosis Differential diagnosis: Likely abdominal pain, diverticulitis, pancreatitis and other (Spontaneous bacterial peritonitis) <Raisa Lima PA-C - Last Filed: 03/06/24 02:24> Lab Data Attestation: I reviewed the patient's lab results. <Raisa Lima PA-C - Last Filed: 03/06/24 02:24> Result diagrams: 03/05/24 18:10 03/05/24 18:10 <Raisa Lima PA-C - Last Filed: 03/06/24 02:24> Labs: Lab Results 03/05/24 03/06/24 Range/Units 18:10 00:44 WBC 11.1 H (4.5-10.0) K/mm3 RBC 3.63 L (4.2-5.4) M/mm3 Hgb 9.7 L (12.0-15.0) g/dL Hct 31.5 L (37.0-47.0) % MCV 86.8 (80-100) fl MCH 26.7 (26-34) pg MCHC 30.8 L (32-36) g/dl RDW 14.6 H (11.5-14.5) % Plt Count 365 (150-375) k/mm3 MPV 9.2 (7.4-10.4) fl Immature Gran % (Auto) 0.8 H (0-0.5) % Neut % (Auto) 59.4 (45.5-73.1) % Lymph % (Auto) 27.7 (18.3-44.2) % [place] % (Auto) 5.9 (2.6-8.5) % Eos % (Auto) 5.4 H (0-4.4) % Baso % (Auto) 0.8 (0.2-1.2) % Lymph # (Auto) 3.08 (0.9-3.2) K/mm3 [place] # (Auto) 0.7 H (0.1-0.6) K/mm3 Eos # (Auto) 0.6 H (0-0.3) K/mm3 Baso # (Auto) 0.1 (0.0-0.1) K/mm3 Abs Immat Gran (auto) 0.09 H (0.00-0.031) K/mm3 Absolute Neuts (auto) 6.6 (1.3-6.7) K/mm3 Absolute Nucleated RBC 0.000 (0.0-0.012) K/mm3 Nucleated RBC % 0.0 (0.0-0.2) % PT 12.8 (11.1-14.7) Seconds INR 0.9 APTT 26.0 (22.3-36.8) Seconds Sodium 135 L (137-145) mmol/L Potassium 4.2 (3.4-5.0) mmol/L Chloride 102 (98-107) mmol/L Carbon Dioxide 30 (22-30) mmol/L Anion Gap 3 L (4-12) mmol/L BUN 43 H D (7-17) mg/dL Creatinine 10.04 H (0.7-1.0) mg/dL Estim Creat Clear Calc 7 ml/min Estimated GFR 5 L (59 - ) Glucose 111 H (65-110) mg/dL Lactic Acid 0.8 (0.7-2.0) mmol/L Calcium 8.6 (8.4-10.2) mg/dL Total Bilirubin 0.3 (0.2-1.3) mg/dL AST 57 H (14-36) U/L ALT 47 H (6-35) U/L Alkaline Phosphatase 289 H (38-126) U/L C-Reactive Protein 1.3 H (<1.0) mg/dL Total Protein 6.0 L (6.3-8.2) g/dL Albumin 2.7 L (3.5-5.1) g/dL Lipase 87 (23-300) U/L Peritoneal Source Peritoneal fluid Peritoneal Color White (Colorless) Peritoneal Appearance Cloudy A (Clear) Peritoneal RBC < 2000 (0-04043) /uL Periton Nuc Cells 20684 H (0-500) /uL Periton Neutrophils 80 H (0-25) % Periton Lymphocytes 2 % Peritoneal Monocytes 2 % Periton Mesothelial 1 % Periton Macrophages 15 % Peritoneal Tot Protein Pending Peritoneal Albumin Pending Peritoneal LDH Pending Peritoneal Glucose Pending Peritoneal Amylase Pending <Raisa Lima PA-C - Last Filed: 03/06/24 02:24> Lab Results 03/05/24 03/06/24 Range/Units 18:10 00:44 WBC 11.1 H (4.5-10.0) K/mm3 RBC 3.63 L (4.2-5.4) M/mm3 Hgb 9.7 L (12.0-15.0) g/dL Hct 31.5 L (37.0-47.0) % MCV 86.8 (80-100) fl MCH 26.7 (26-34) pg MCHC 30.8 L (32-36) g/dl RDW 14.6 H (11.5-14.5) % Plt Count 365 (150-375) k/mm3 MPV 9.2 (7.4-10.4) fl Immature Gran % (Auto) 0.8 H (0-0.5) % Neut % (Auto) 59.4 (45.5-73.1) % Lymph % (Auto) 27.7 (18.3-44.2) % [place] % (Auto) 5.9 (2.6-8.5) % Eos % (Auto) 5.4 H (0-4.4) % Baso % (Auto) 0.8 (0.2-1.2) % Lymph # (Auto) 3.08 (0.9-3.2) K/mm3 [place] # (Auto) 0.7 H (0.1-0.6) K/mm3 Eos # (Auto) 0.6 H (0-0.3) K/mm3 Baso # (Auto) 0.1 (0.0-0.1) K/mm3 Abs Immat Gran (auto) 0.09 H (0.00-0.031) K/mm3 Absolute Neuts (auto) 6.6 (1.3-6.7) K/mm3 Absolute Nucleated RBC 0.000 (0.0-0.012) K/mm3 Nucleated RBC % 0.0 (0.0-0.2) % PT 12.8 (11.1-14.7) Seconds INR 0.9 APTT 26.0 (22.3-36.8) Seconds Sodium 135 L (137-145) mmol/L Potassium 4.2 (3.4-5.0) mmol/L Chloride 102 (98-107) mmol/L Carbon Dioxide 30 (22-30) mmol/L Anion Gap 3 L (4-12) mmol/L BUN 43 H D (7-17) mg/dL Creatinine 10.04 H (0.7-1.0) mg/dL Estim Creat Clear Calc 7 ml/min Estimated GFR 5 L (59 - ) Glucose 111 H (65-110) mg/dL Lactic Acid 0.8 (0.7-2.0) mmol/L Calcium 8.6 (8.4-10.2) mg/dL Total Bilirubin 0.3 (0.2-1.3) mg/dL AST 57 H (14-36) U/L ALT 47 H (6-35) U/L Alkaline Phosphatase 289 H (38-126) U/L C-Reactive Protein 1.3 H (<1.0) mg/dL Total Protein 6.0 L (6.3-8.2) g/dL Albumin 2.7 L (3.5-5.1) g/dL Lipase 87 (23-300) U/L Peritoneal Source Peritoneal fluid Peritoneal Color White (Colorless) Peritoneal Appearance Cloudy A (Clear) Peritoneal RBC < 2000 (0-32537) /uL Periton Nuc Cells 99346 H (0-500) /uL Periton Neutrophils 80 H (0-25) % Periton Lymphocytes 2 % Peritoneal Monocytes 2 % Periton Mesothelial 1 % Periton Macrophages 15 % Peritoneal Tot Protein Pending Peritoneal Albumin Pending Peritoneal LDH Pending Peritoneal Glucose Pending Peritoneal Amylase Pending <Fadi Lofton MD - Last Filed: 03/06/24 06:58> Critical Care Time Critical Care Time Critical Care Time: No <Raisa Lima PA-C - Last Filed: 03/06/24 02:24> Discharge Plan Discharge Clinical Impression: Peritonitis, spontaneous bacterial <Raisa Lima PA-C - Last Filed: 03/06/24 02:24> Patient Disposition: Still a Patient <Raisa Lima PA-C - Last Filed: 03/06/24 02:24> Condition: Serious <Raisa Lima PA-C - Last Filed: 03/06/24 02:24>
[2024-03-05 18:17] LABS: Basophils Absolute Auto 0.1 K/mm3 (0.0-0.1); Basophils Percent Auto 0.8 % (0.2-1.2); Eosinophils Absolute Auto 0.6 K/mm3 (0-0.3); Eosinophils Percent Auto 5.4 % (0-4.4); Hematocrit 31.5 % (37.0-47.0); Hemoglobin 9.7 g/dL (12.0-15.0); Immature Granulocyte Absolute 0.09 K/mm3 (0.00-0.031); Immature Granulocyte Percent A 0.8 % (0-0.5); Lymphocytes Absolute Auto 3.08 K/mm3 (0.9-3.2); Lymphocytes Percent Auto 27.7 % (18.3-44.2); Mean Corpuscular HGB Conc 30.8 g/dl (32-36); Mean Corpuscular Hemoglobin 26.7 pg (26-34); Mean Corpuscular Volume 86.8 fl (80-100); Mean Platelet Volume 9.2 fl (7.4-10.4); Monocytes Absolute Auto 0.7 K/mm3 (0.1-0.6); Monocytes Percent Auto 5.9 % (2.6-8.5); Neutrophils Absolute Auto 6.6 K/mm3 (1.3-6.7); Neutrophils Percent Auto 59.4 % (45.5-73.1); Platelet Count Result 365 k/mm3 (150-375); Red Blood Count 3.63 M/mm3 (4.2-5.4); Red Cell Distribution Width 14.6 % (11.5-14.5); White Blood Count 11.1 K/mm3 (4.5-10.0)
[2024-03-05 18:26] LABS: Lactic Acid Reflex 0.8 mmol/L (0.7-2.0)
[2024-03-05 18:27] LABS: Alanine Aminotransferase 47 U/L (6-35); Albumin Level 2.7 g/dL (3.5-5.1); Alkaline Phosphatase 289 U/L (38-126); Anion Gap 3 mmol/L (4-12); Aspartate Amino Transferase 57 U/L (14-36); Bilirubin,Total 0.3 mg/dL (0.2-1.3); Blood Urea Nitrogen 43 mg/dL (7-17); Calcium 8.6 mg/dL (8.4-10.2); Carbon Dioxide 30 mmol/L (22-30); Chloride 102 mmol/L (98-107); Estimated CRCL calculation 7 ml/min; Estimated Glomerular Filt Rate 5; Glucose 111 mg/dL (65-110); Lipase 87 U/L (23-300); Potassium 4.2 mmol/L (3.4-5.0); Sodium 135 mmol/L (137-145)
[2024-03-05 18:28] LABS: INR 0.9; Prothrombin Time 12.8 Seconds (11.1-14.7)
[2024-03-05 18:30] LABS: CRP 1.3 mg/dL (<1.0)
[2024-03-05 20:49] VITALS: BP 150/81; PULSE 84; RESP 20; O2SAT 100
[2024-03-05 23:39] VITALS: TEMP 37.6
[2024-03-06] VITALS (12 sets, daily range): BP systolic 148–214; BP diastolic 73–94; PULSE 75–85; RESP 14–24; TEMP 36.4–36.5; O2SAT 98–100; BMI 36.4
[2024-03-06] MEDS: ONDANSETRON INJ 4 MG/2 ML VIAL IV PUSH (00:11)
[2024-03-06] MEDS: MORPHINE SULFATE (*CRX) 4 MG/ML INJ IV PUSH (00:11)
[2024-03-06 01:07] LABS: Appearance Peritoneal Fluid Cloudy (Clear); Color Peritoneal Fluid White (Colorless); Source Peritoneal Fluid Peritoneal Fluid
[2024-03-06 01:10] LABS: RBC Peritoneal Fluid < 2000 /uL (0-10000)
[2024-03-06 01:23] LABS: Nucleated Cells Peritoneal Flu 31357 /uL (0-500)
[2024-03-06 01:38] LABS: Lymphocytes Peritoneal Fluid 2 %; Macrophages Peritoneal Fluid 15 %; Mesothelial Cells Peritoneal Fluid 1 %; Monocytes Peritoneal Fluid 2 %; Neutrophils Peritoneal Fluid 80 % (0-25)
[2024-03-06 02:41] LABS: Glucose Point of Care 37 mg/dl (65-105)
[2024-03-06] MEDS: DEXTROSE 50% 25 GM/50 ML SYRINGE IV PUSH (02:49)
--- NOTE | 2024-03-06 02:51 | PC.NURSE ---
Late note due to pt care: pt BG checked and was found to be 37. DONAVON Kline notified and amp D50 verbal ordered and given. RN to recheck BG at 0255.
[2024-03-06 02:59] LABS: Glucose Point of Care 134 mg/dl (65-105)
--- NOTE | 2024-03-06 03:16 | PC.NURSE ---
repeat BG 134. PA Clarence aware. Report given to Caitie Aceves for shift change. All questions answered.
[2024-03-06] MEDS: cefTRIAXone 2 GM/NS 100 ML 2 GM/100 ML BAG IVPB (03:22)
[2024-03-06 03:31] LABS: BEDSIDEPREGUCG Negative (Negative)
[2024-03-06 03:46] LABS: Add Urine Microscopic? YES; Appearance Urine Clear (Clear); Bacteria Urine None Seen /hpf; Bilirubin Urine Negative (Negative); Blood Urine Trace (Negative); Color Urine Yellow (Yellow); Glucose Urine UA Negative (Negative); Ketones Urine Negative (Negative); Leukocyte Esterase Ur 1+ LEU/UL (Negative); Need Manual Microscopic Reviewed; Nitrate Urine Negative (Negative); Non Pathogenic Casts 0-2; Protein Urine 2+ mg/dL (Negative); RBC Urine 0-2 /hpf (0-2); Specific Grav Ur 1.007 (1.001-1.035); Squamous Epithelial Cell Urine Few /hpf (Few); Urobilinogen Urine 0.2 mg/dL (<2.0); WBC Urine 0-5 /hpf (0-3); pH Urine 8.5 (5.0-9.0)
[2024-03-06 04:48] LABS: Glucose Point of Care 64 mg/dl (65-105)
--- NOTE | 2024-03-06 05:28 | PC.NURSE ---
due to patient decrease in blood sugar, hospitalist Dr. Mason verbal order continuous infusion of d10 at a rate of 75 mls/ hour via iv. this rn used closed loop communication to confirm rate/ medication/ dose/ time/ patient. hospitalist dr. mason verified.
[2024-03-06] MEDS: DEXTROSE 50% 25 GM/50 ML SYRINGE (05:32)
[2024-03-06 06:09] LABS: Glucose Point of Care 110 mg/dl (65-105)
[2024-03-06] MEDS: DEXTROSE 10% 1,000 ML 75 ML IV CONT (06:14)
--- NOTE | 2024-03-06 07:28 | P.HP_ITS ---
H&P: HPI History of Present Illness Date/Time: 03/06/24 07:28 Chief Complaint: abd pain Narrative: This is a 43 year old female with PMH/o ESRD (on perinoneal dialysis) CKD stage5, obesity, GERD, erythropoietin deficincy anemia, arthritis rt wrist, lt knnee, IBS, diabetis, neuropathy, HTN presented to the ER for abdominal pain. It started since waking up from a nap yesterday. Reports she does peritoneal dialys is and the fluid was cloudy, so got concerned she may have peritonitis. Her interface developer is Dr. Fernandez. In ED: BP was high, 200 systolic- due to pain, improved since pain is better controlled; WBC 11.1. CRP slightly elevated. Lactic acid normal. Peritoneal fluid 31,357 nucleated cells, 80% neutrophils. BC and peritoneal cultures were obtained-pending. Pt was given IV antibiotics: Ceftriaxone 2gm. will reorder daily. Morphine, zofran. CT abd/pelvis ordered for today. Urine obtained. Nephrology consulted. Pt is seen and examined. She is comfortable in bed, denies any acute pain, no chills, no nausea. IV fluids infusing. She has not been checking her BS lately as didnot have monitor. Her dr finally got her CGM that she is yet to apply. Her last BS was february 06 - and it was about 89. She takes 14 units of lantus at night. Doesnot smoke, drinks, doesnot smoke marijuana 9reports trying it once) Review of Systems Constitutional: Constitutional: Denies chills Cardiovascular: Cardiovascular: Denies chest pain Respiratory: Respiratory: Denies chest congestion and Denies cough Gastrointestinal: Gastrointestinal: Reports abdominal pain Musculoskeletal: Musculoskeletal: Denies back pain Psychiatric: Psychiatric: Denies anxiety [facility] Past Medical History Medical History Peritoneal dialysis catheter in place Requires peritoneal dialysis ESRD (end stage renal disease) Obesity (BMI 30-39.9) Dysphagia, oropharyngeal Morbid obesity Chronic kidney disease, stage 5 Pyuria Erythropoietin deficiency anemia Gastroesophageal reflux Arthritis Right wrist left knee Irritable bowel syndrome Diverticulitis Pneumonia Peripheral neuropathy Diabetes Hypertension Surgical History Surgical History Hx of cholecystectomy History of salpingo-oophorectomy Delivery by section X3 History of tubal ligation Hx of appendectomy Family History Family History Mother Diabetes mellitus Breast cancer Sibling History of blood clots due to blood clot Heart disease Sister has something wrong with her heart Father Hypertension Prostate carcinoma Daughter , 06/08/2021, 19yo Pulmonary embolism Social History Social History Social History: She has 3 children, 1 . She is single. Her oldest daughter is a durable power state attorney for healthcare. The patient desires to be a full code. Patient stated that she has 5 grandchildren and watches her granddaughter most of the time. Code status full code Smoking status: Never smoker Second hand tobacco smoke exposure: Yes Alcohol intake: never Substance use: never Substance use type: does not use Do You Feel Safe in your Home?: Yes Lack of Transportation: No Lack of Food: Never True Current Housing: I Have Housing Concerned About Future Housing: No Difficulty Paying Gas/Electric Bills: No Difficulty Paying for Meds: No Currently Unemployed: No Education: High School Diploma/GED Difficulty w/ Childcare or Family Care: No Living arrangements: with family Additional living arrangements comments: with son Occupation/Education: other Additional occupation/education comments: 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, 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 Gender identity (if verbalized by the patient): Female Sexual Orientation (if Verbalized by the Patient): Straight or Heterosexual Spiritual care concerns: No Agree to blood products: Yes Meds Home Medications and Allergies Home Medications ?Medication ?Instructions ?Recorded ?Confirmed ?Type aspirin 81 mg chewable tablet 81 mg PO DAILY@0800 #30 tabs 05/05/22 03/06/24 Rx (Children's Aspirin) labetalol 300 mg tablet 200 mg PO Q12H 07/28/22 03/06/24 History amlodipine 5 mg tablet 5 mg PO DAILY 12/30/23 03/06/24 History atorvastatin 20 mg tablet 20 mg PO DAILY 12/30/23 03/06/24 History blood sugar diagnostic (Blood #100 ea 12/30/23 03/06/24 Rx Glucose Test strips) blood-glucose meter (Blood Glucose #1 ea 12/30/23 03/06/24 Rx Monitoring kit) fluticasone propionate 50 2 spray intranasal DAILY #48 mL 12/30/23 03/06/24 Rx mcg/actuation nasal spray,suspension (Flonase Allergy Relief) gabapentin 100 mg capsule 200 mg (2 x 100 mg) PO TID #540 12/30/23 03/06/24 Rx caps lancets 31 gauge #100 ea 12/30/23 03/06/24 Rx megestrol 40 mg tablet 40 mg PO DAILY 12/30/23 03/06/24 History cholecalciferol (vitamin D3) 1,250 1,250 mcg PO DAILY 01/06/24 03/06/24 History mcg (50,000 unit) capsule sevelamer carbonate 800 mg tablet 1,600 mg PO TIDWM 01/06/24 03/06/24 History blood-glucose sensor (FreeStyle #2 ea 02/04/24 03/06/24 Rx Alexandro 3 Plus Sensor device) insulin glargine 100 unit/mL (3 14 unit (0.14 mL) subcut HS #15 mL 03/03/24 03/06/24 Rx mL) subcutaneous pen (Lantus Solostar U-100 Insulin) Allergies Allergy/AdvReac Type Severity Reaction Status Date / Time metronidazole Allergy Intermediate Rash Verified 02/22/24 14:47 omeprazole Allergy Intermediate Rash Verified 02/22/24 14:47 Vital Signs Vital Signs - 24 hr 03/05/24 15:30 03/05/24 17:59 03/05/24 20:49 Temperature 88 F L Pulse Rate 91 84 Respiratory Rate 22 H 20 Blood Pressure 200/92 H 150/81 H Pulse Oximetry 100 100 03/05/24 23:39 03/06/24 03:29 03/06/24 05:33 Temperature 99.6 F Pulse Rate 78 75 Respiratory Rate 16 16 Blood Pressure 178/90 H 177/83 H Pulse Oximetry 100 100 03/06/24 07:22 Temperature Pulse Rate 77 Respiratory Rate 20 Blood Pressure 161/85 H Pulse Oximetry 100 Exam Narrative: resting in bed, calm and comfortable Const: General: comfortable Resp: Effort & Inspection: normal respiratory effort Auscultation: clear to auscultation bilaterally Cardio: Rate: regular rate Rhythm: regular rhythm GI: Auscultation: normal bowel sounds Skin: General skin exam: normal color Psych: Mental Status: mental status grossly normal Affect: normal affect H&P: Results Labs Labs: Short CBC 03/05/24 Range/Units 18:10 WBC 11.1 H (4.5-10.0) K/mm3 Hgb 9.7 L (12.0-15.0) g/dL Hct 31.5 L (37.0-47.0) % Plt Count 365 (150-375) k/mm3 BMP 03/05/24 18:10 Sodium 135 L Potassium 4.2 Chloride 102 Carbon Dioxide 30 BUN 43 H D Creatinine 10.04 H Glucose 111 H Calcium 8.6 Liver Function 03/05/24 Range/Units 18:10 Total Bilirubin 0.3 (0.2-1.3) mg/dL AST 57 H (14-36) U/L ALT 47 H (6-35) U/L Alkaline Phosphatase 289 H (38-126) U/L Albumin 2.7 L (3.5-5.1) g/dL Urine 03/06/24 Range/Units 03:25 Urine Color Yellow (Yellow) Urine Appearance Clear (Clear) Urine pH 8.5 (5.0-9.0) Ur Specific [place] 1.007 (1.001-1.035) Urine Protein 2+ H (Negative) mg/dL Urine Glucose (UA) Negative (Negative) mg/dL Assessment and Plan Assessment and plan (1) Hypertension: Code(s): I10 - Essential (primary) hypertension Status: Chronic Assessment and Plan: chronic on labetolol medications will be reviewed and restarted once med list is completed (2) Diabetes mellitus type 2, insulin dependent: Code(s): E11.9 - Type 2 diabetes mellitus without complications; Z79.4 - longterm (current) use of insulin Status: Acute Assessment and Plan: hypoglycemia protocol ordered, AccuCheck ac/hs bs reviewed- stable for now medications will be reviewed and restarted once med list is completed chronic- lantus 14 units at home need daily BS monitoring as on lantus - education provided- states got her CGM and will be using it once discharged (3) Gastroesophageal reflux: Code(s): K21.9 - Gastro-esophageal reflux disease without esophagitis Status: Acute Assessment and Plan: chronic medications will be reviewed and restarted once med list is completed (4) End-stage renal disease on peritoneal dialysis: Code(s): N18.6 - End stage renal disease; Z99.2 - Dependence on renal dialysis Status: Acute Assessment and Plan: following with DR Villatoro on peritoneal dialysis (5) Peritonitis associated with peritoneal dialysis: Code(s): T85.71XA - Infection and inflammatory reaction due to peritoneal dialysis catheter, initial encounter Status: Acute Assessment and Plan: does not meet sepsis criteria BP was initially elevated probably due to pain- better now, HR, R wnl wbc slightly elevated 11,.2, lactic normal, CRP slightly elevated 1,3 Urine w/culture collected, BC, peritoneal fluid collected- follow pt started on ceftriaxone 2 gm and will continue that 2 gm daily morphine, norco, zofran ordered for pain and nausea nephrology consulted (6) Erythropoietin deficiency anemia: Code(s): D63.1 - Anemia in chronic kidney disease Status: Acute Assessment and Plan: chronic hg/hct 9.7/31.5 (per chart review 6.5-11 is her usual numbers) Quality VTE Prophylaxis VTE prophylaxis: pharmacologic ordered
[2024-03-06 07:32] LABS: Glucose Point of Care 86 mg/dl (65-105)
[2024-03-06 08:42] LABS: Glucose Point of Care 88 mg/dl (65-105)
[2024-03-06] MEDS: ENOXAPARIN 30 MG/0.3 ML SYRINGE SUB-Q (10:12)
--- NOTE | 2024-03-06 10:51 | P.CONNP_ITS ---
Assessment and Plan Assessment and plan (1) End-stage renal disease on peritoneal dialysis: Code(s): N18.6 - End stage renal disease; Z99.2 - Dependence on renal dialysis Status: Acute Assessment and Plan: The patient has end-stage renal disease. He gets peritoneal dialysis nightly. Volume status looks okay. Electrolytes look okay. Looks like she has been doing her dialysis routinely. She does have abdominal pain and the fluid shows 31,357 white cells. It is likely that this is peritoneal dialysis related peritonitis. It does not look like there is a technique issue related to this but it is hard to say. She did disconnecting reconnect overnight. She had a biopsy 2 weeks ago but that should not have led to this. She does have diverticulosis and so could have something next the peritoneal cavity which infected it. 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 The patient has received ceftriaxone. She should probably get vancomycin as well. Will put this in a bag and give it to her intraperitoneally since she does not look systemically septic. (2) Diabetes mellitus type 2, insulin dependent: Code(s): E11.9 - Type 2 diabetes mellitus without complications; Z79.4 - terminal worker (current) use of insulin Status: Acute Assessment and Plan: The patient has diabetes. Hospitalist to manage this. (3) Hypertension: Code(s): I10 - Essential (primary) hypertension Status: Acute Assessment and Plan: Blood pressure was high when she came in. This has improved some, probably with resolution of the abdominal pain. (4) Normocytic anemia: Code(s): D64.9 - Anemia, unspecified Status: Acute Assessment and Plan: Hemoglobin is 9.7. Will give her Epogen. Blood pressure has come down so it is okay to give this starting tomorrow and I will write parameters (5) Renal osteodystrophy: Code(s): N25.0 - Renal osteodystrophy Status: Acute Assessment and Plan: Will check a phosphorus in the morning History of Present Illness Reason for Consult Consult date: 03/06/24 Chief Complaint Chief complaint: Spontaneous bacterial peritonitis History of Present Illness Narrative: Bakari is a very pleasant 43-year-old lady who has end-stage renal disease on dialysis by peritoneal catheter nightly, hypertension, diabetes, anemia, renal osteodystrophy, GERD, irritable bowel syndrome, diverticulosis, peripheral neuropathy. The patient says she was fine until yesterday morning when she woke up been disconnected. She said the fluid was milky. She had no pain. She says that occasionally her fluid is not quite clear but has no pain. Where she went to see Rom[facility] 1 time this happened and the fluid was okay and there was some fibrin. So yesterday morning when she experienced this, she thought it might be an exaggerated event like before. She ate some food and went back to bed and then woke up with severe belly pain. She does not like the search engine optimization consultant nurses because they just told her to go to the emergency room anyway so she just went to the emergency room without calling. She was seen here. Fluid was taken and she had white cells in the fluid. She was given IV antibiotics. When I came in this morning for around I saw her on the list. They might have called Dr. Fernandez I am not sure. Patient feels better this morning. She has much less pain. Patient says her technique is been good. She has had 1 peritonitis episode before which was treated as an outpatient because it happened on a weekday and she was able to get in to [facility] and it was taking care of. She says that she took a 30 question test about technique recently and she got all but for questions right. Those for questions were use to educate her further and she fix those issues. She says she uses a mask. She washes her hands with water and uses paper towels. She uses antibacterial hand talent scout as well. Returns offer heater. Nobody walked in the room. She did drop her set. She does say that from Thursday to Thursday night during that episode of peritoneal dialysis she disconnected so she go get something to eat then reconnected but she used all the proper technique she says. Patient did have a vaginal ultrasound and biopsy about 2 weeks ago between and . She did take prophylactic antibiotics before that. She does not have any trouble with fluid flows or alarms. She does have some constipation occasionally and does have to push to have a bowel movement from time to time. Review of Systems 2 Constitutional: Constitutional: Reports no additional constitutional complaints Eyes: Eyes: Reports no additional eye complaints ENT: Reports system reviewed and no additional complaints, except as documented Cardiovascular: Cardiovascular: Reports no additional cardiovascular complaints Respiratory: Respiratory: Reports no additional respiratory complaints Gastrointestinal: Gastrointestinal: Reports no additional gastrointestinal complaints Genitourinary: Genitourinary: Reports no additional female genitourinary complaints Musculoskeletal: Musculoskeletal: Reports no additional musculoskeletal complaints Integumentary/Breasts: Skin/Breast: Reports system reviewed and no additional complaints, except as docu Neurologic: Reports system reviewed and no additional complaints, except as documented Psychiatric: Psychiatric: Reports no additional psychiatric complaints Endocrine: Endocrine: Reports no additional endocrine complaints PMFSH Past Medical History Medical History Peritoneal dialysis catheter in place Requires peritoneal dialysis ESRD (end stage renal disease) Obesity (BMI 30-39.9) Dysphagia, oropharyngeal Morbid obesity Chronic kidney disease, stage 5 Pyuria Erythropoietin deficiency anemia Gastroesophageal reflux Arthritis Right wrist left knee Irritable bowel syndrome Diverticulitis Pneumonia Peripheral neuropathy Diabetes Hypertension Surgical History Surgical History Hx of cholecystectomy History of salpingo-oophorectomy Delivery by section X3 History of tubal ligation Hx of appendectomy Family History Family History Mother Diabetes mellitus Breast cancer Sibling History of blood clots due to blood clot Heart disease Sister has something wrong with her heart Father Hypertension Prostate carcinoma Daughter , 06/08/2021, 19yo Pulmonary embolism Social History Social History Social History: She has 3 children, 1 . She is single. Her oldest daughter is a durable power deputy commonwealth's attorney for healthcare. The patient desires to be a full code. Patient stated that she has 5 grandchildren and watches her granddaughter most of the time. Code status full code Smoking status: Never smoker Second hand tobacco smoke exposure: Yes Alcohol intake: former Substance use: former Substance use type: marijuana Do You Feel Safe in your Home?: Yes Lack of Transportation: YES Lack of Food: Never True Current Housing: I Have Housing Concerned About Future Housing: No Difficulty Paying Gas/Electric Bills: No Difficulty Paying for Meds: No Currently Unemployed: YES Education: High School Diploma/GED Difficulty w/ Childcare or Family Care: No Living arrangements: with family Additional living arrangements comments: with son Occupation/Education: other Additional occupation/education comments: disabled, 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 Gender identity (if verbalized by the patient): Female Sexual Orientation (if Verbalized by the Patient): Straight or Heterosexual Spiritual care concerns: No Agree to blood products: Yes Meds Home Medications and Allergies Home Medications ?Medication ?Instructions ?Recorded ?Confirmed ?Type aspirin 81 mg chewable tablet 81 mg PO DAILY@0800 #30 tabs 05/05/22 02/04/24 Rx (Children's Aspirin) labetalol 300 mg tablet 200 mg PO Q12H 07/28/22 02/04/24 History amlodipine 5 mg tablet 5 mg PO DAILY 12/30/23 02/04/24 History atorvastatin 20 mg tablet 20 mg PO DAILY 12/30/23 02/04/24 History blood sugar diagnostic (Blood #100 ea 12/30/23 02/04/24 Rx Glucose Test strips) blood-glucose meter (Blood Glucose #1 ea 12/30/23 02/04/24 Rx Monitoring kit) fluticasone propionate 50 2 spray intranasal DAILY #48 mL 12/30/23 02/04/24 Rx mcg/actuation nasal spray,suspension (Flonase Allergy Relief) gabapentin 100 mg capsule 200 mg (2 x 100 mg) PO TID #540 12/30/23 02/04/24 Rx caps lancets 31 gauge #100 ea 12/30/23 02/04/24 Rx megestrol 40 mg tablet 40 mg PO DAILY 12/30/23 02/04/24 History cholecalciferol (vitamin D3) 1,250 1,250 mcg PO DAILY 01/06/24 02/04/24 History mcg (50,000 unit) capsule sevelamer carbonate 800 mg tablet 1,600 mg PO TIDWM 01/06/24 02/04/24 History blood-glucose sensor (FreeStyle #2 ea 02/04/24 Rx Alexandro 3 Plus Sensor device) insulin glargine 100 unit/mL (3 14 unit (0.14 mL) subcut HS #15 mL 03/03/24 Rx mL) subcutaneous pen (Lantus Solostar U-100 Insulin) Allergies Allergy/AdvReac Type Severity Reaction Status Date / Time metronidazole Allergy Intermediate Rash Verified 02/22/24 14:47 omeprazole Allergy Intermediate Rash Verified 02/22/24 14:47 Vital Signs Vital Signs - 24 hr 03/05/24 15:30 03/05/24 17:59 03/05/24 20:49 Temperature 88 F L Pulse Rate 91 84 Respiratory Rate 22 H 20 Blood Pressure 200/92 H 150/81 H Pulse Oximetry 100 100 03/05/24 23:39 03/06/24 03:29 03/06/24 05:33 Temperature 99.6 F Pulse Rate 78 75 Respiratory Rate 16 16 Blood Pressure 178/90 H 177/83 H Pulse Oximetry 100 100 03/06/24 07:22 Temperature Pulse Rate 77 Respiratory Rate 20 Blood Pressure 161/85 H Pulse Oximetry 100 Exam 2 Narrative: Exam Narrative: Well developed well-nourished female in no acute distress Skin is warm and dry without rash Head normocephalic atraumatic Eyes normal sclerae and conjunctivae Mouth normal lips teeth and gums Neck no nodes no thyromegaly no carotid bruits Axillae no nodes Back no CVA tenderness Lungs symmetric and clear to auscultation and percussion Heart regular rate and rhythm without rub or gallop Abdomen bowel sounds positive soft mildly and diffusely tender, no HSM, masses, or bruits. Extremities no cyanosis, clubbing, or edema Pulses 2+ equal in radial arteries Psychological not anxious or depressed Neuro alert and oriented x3 motor 5/5 cranial nerves 2-12 intact reflexes 2+ and equal in the biceps and patellar tendons cerebellar normal rapid alternating movements Results Lab Results 03/05/24 18:10 03/05/24 18:10 Lab results: Most recent lab results Calcium 8.6 mg/dL (8.4-10.2) 03/05/24 18:10
--- NOTE | 2024-03-06 10:52 | P.PNCROSS_ITS ---
Event Note Event Note Event Note: Patient is on peritoneal dialysis and tolerating it well. Fluid was cloudy. S he is getting IV antibiotics. She feels much better this morning. She was seen at 9:30 a.m.
--- NOTE | 2024-03-06 13:55 | PC.NURSE ---
pt blood sugar is 168 at this time
[2024-03-06 13:56] LABS: Glucose Point of Care 168 mg/dl (65-105)
--- NOTE | 2024-03-06 15:36 | ADMGEN ---
This patient, Bakari Smith, was admitted to IMU Room 203-01. Patient/family oriented to hospital policies and general routines including ID bracelet, bed and alarms, visiting hours, pain management, procedures, bathroom and other care routines, personal items, smoking policy, room service/diet, and visiting hours. Information on how to activate the Rapid Response Team has been discussed. Patient/Family are encouraged to report perceived risks to care and to ask questions if they do not understand what they are told or what they should do.
[2024-03-06] MEDS: amLODIPine BESYLATE 5 MG TABLET PO (18:36)
[2024-03-06] MEDS: GABAPENTIN 100 MG CAPSULE 200 MG PO (18:36)
[2024-03-06 19:40] LABS: Glucose Point of Care 281 mg/dl (65-105)
[2024-03-06] MEDS: LABETALOL HCL 100 MG TABLET 200 MG PO (20:08)
[2024-03-06 21:47] LABS: Glucose Point of Care 225 mg/dl (65-105)
[2024-03-06] MEDS: diphenhydrAMINE HCl CAP 25 MG CAPSULE PO (23:20)
[2024-03-07] VITALS (15 sets, daily range): BP systolic 142–188; BP diastolic 70–94; PULSE 70–91; RESP 16–20; TEMP 36.2–36.8; O2SAT 100; BMI 35.9
[2024-03-07 04:53] LABS: Basophils Absolute Auto 0.1 K/mm3 (0.0-0.1); Basophils Percent Auto 0.7 % (0.2-1.2); Eosinophils Absolute Auto 0.4 K/mm3 (0-0.3); Hematocrit 30.9 % (37.0-47.0); Hemoglobin 9.2 g/dL (12.0-15.0); Immature Granulocyte Absolute 0.07 K/mm3 (0.00-0.031); Immature Granulocyte Percent A 0.8 % (0-0.5); Lymphocytes Absolute Auto 2.65 K/mm3 (0.9-3.2); Lymphocytes Percent Auto 30.5 % (18.3-44.2); Mean Corpuscular HGB Conc 29.8 g/dl (32-36); Mean Corpuscular Hemoglobin 26.6 pg (26-34); Mean Corpuscular Volume 89.3 fl (80-100); Mean Platelet Volume 9.5 fl (7.4-10.4); Monocytes Absolute Auto 0.4 K/mm3 (0.1-0.6); Monocytes Percent Auto 5.1 % (2.6-8.5); Neutrophils Absolute Auto 5.1 K/mm3 (1.3-6.7); Neutrophils Percent Auto 58.9 % (45.5-73.1); Platelet Count Result 338 k/mm3 (150-375); Red Blood Count 3.46 M/mm3 (4.2-5.4); Red Cell Distribution Width 14.6 % (11.5-14.5); White Blood Count 8.7 K/mm3 (4.5-10.0)
[2024-03-07 05:08] LABS: Albumin Level 2.7 g/dL (3.5-5.1); Anion Gap 7 mmol/L (4-12); Blood Urea Nitrogen 42 mg/dL (7-17); Calcium 8.5 mg/dL (8.4-10.2); Carbon Dioxide 26 mmol/L (22-30); Chloride 99 mmol/L (98-107); Estimated CRCL calculation 7 ml/min; Estimated Glomerular Filt Rate 5; Glucose 331 mg/dL (65-110); Phosphorus 4.6 mg/dL (2.5-4.5); Potassium 3.8 mmol/L (3.4-5.0); Sodium 132 mmol/L (137-145)
[2024-03-07 05:38] LABS: Hepatitis B Surface Antigen Negative (Negative)
[2024-03-07 05:58] LABS: Hepatitis B Surface Anti Res Positive
[2024-03-07 08:21] LABS: Glucose Point of Care 301 mg/dl (65-105)
[2024-03-07] MEDS: ASPIRIN 81 MG CHEWABLE TABLET PO (08:31)
[2024-03-07] MEDS: cefTRIAXone 2 GM/NS 100 ML 2 GM/100 ML BAG IVPB (08:31)
[2024-03-07 08:32] LABS: Hemoglobin A1C 5.9 % (<5.7)
[2024-03-07] MEDS: GABAPENTIN 100 MG CAPSULE 200 MG PO ×3 (08:32→17:47)
[2024-03-07] MEDS: LABETALOL HCL 100 MG TABLET 200 MG PO ×2 (08:32→21:15)
[2024-03-07] MEDS: SEVELAMER CARBONATE 800 MG TABLET 1600 MG PO ×2 (08:32→11:58)
[2024-03-07] MEDS: amLODIPine BESYLATE 5 MG TABLET PO (08:34)
[2024-03-07] MEDS: INSULIN ASPART (*BKC) 100 UNITS/ML SUB-Q (08:37)
[2024-03-07] MEDS: ENOXAPARIN 30 MG/0.3 ML SYRINGE SUB-Q (08:45)
[2024-03-07] MEDS: ATORVASTATIN 20 MG TABLET PO (08:45)
--- NOTE | 2024-03-07 09:10 | P.PNNP_ITS ---
Progress Note: A&P Assessment and Plan (1) End stage renal disease: Code(s): N18.6 - End stage renal disease Status: Chronic Assessment and Plan: * continue nightly CCPD * follow electrolytes, volume status, and clearance (2) Peritonitis: Code(s): K65.9 - Peritonitis, unspecified Status: Acute Assessment and Plan: * likely etiology of abdominal pain on admission * highly suggestive based on PD fluid analysis * repeat PD fluid cell count with improvement * PD fluid cultures pending * dosed intraperitoneal vancomycin yesterday (Thursday) * will likely continue intraperitoneal antibiotics on discharge pending culture reuslts (3) Hypertension: Code(s): I10 - Essential (primary) hypertension Status: Chronic Assessment and Plan: * reasonable control * continue home medications * follow trend of hemodynamics (4) Anemia: Code(s): D64.9 - Anemia, unspecified Status: Chronic Assessment and Plan: * due to ESRD * Epogen while hospitalized * follow trend of H/H (5) Diabetes: Code(s): E11.9 - Type 2 diabetes mellitus without complications Status: Chronic Assessment and Plan: * follow accuchecks * glycemic control per hospitalists Will continue to follow. L Subjective Date/time seen: 03/07/24 09:10 Interval history: Follow-up for end stage renal disease on peritoneal dialysis. Chart reviewed -- assuming care from Dr. Stacy; tolerated peritoneal dialysis treatment overnight without any issues or problems ([facility] supervised and seen at 09:00AM); reports improvement in her abdominal pain and states PD fluid looks clearer as well; no apparent distress noted when seen. Exam 2 Narrative: General: WD/WN female in NAD Heart: normal S1 and S2; no rub Lungs: clear to auscultation Abdomen: soft, nontender, nondistended, positive bowel sounds Extremities: no cyanosis or clubbing; no edema Skin: warm and dry Objective Data Vital Signs Vital Signs: Vital Signs Temp Pulse Resp BP Pulse Ox O2 Del Method 03/07/24 08:45 86 03/07/24 08:32 79 03/07/24 08:00 98 F 82 16 153/78 H 100 03/07/24 06:00 85 03/07/24 04:00 81 03/07/24 04:00 98.0 F 91 16 166/84 H 100 03/07/24 03:57 100 Room Air 03/07/24 02:00 90 03/07/24 00:00 84 03/06/24 23:53 100 Room Air 03/06/24 23:40 97.5 F L 85 20 153/82 H 98 03/06/24 22:00 85 03/06/24 20:08 85 03/06/24 20:00 82 03/06/24 20:00 100 Room Air 03/06/24 20:00 97.7 F 84 24 H 214/94 H 100 Intake/Output Intake/Output: Intake & Output 03/04/24 03/05/24 03/06/24 03/07/24 23:59 23:59 23:59 23:59 Intake Total 421.7 880 Output Total 1000 Balance 421.7 -120 Meds/Results Medications: Active Medications Generic Name Dose Route Start Last Admin Trade Name Freq PRN Reason Stop Dose Admin Hydrocodone Bitart/Acetaminophen 1 tab 03/06/24 07:40 Hydrocodone/Acetaminophen (*Crx) 5-325 Mg Tablet PO Q4H PRN Pain Rated 4-6 Amlodipine Besylate 5 mg 03/06/24 18:20 03/07/24 08:34 Amlodipine Besylate 5 Mg Tablet PO 5 mg DAILY CHAYO Administration Aspirin 81 mg 03/07/24 08:00 03/07/24 08:31 Aspirin 81 Mg Chewable Tablet PO 81 mg DAILY@0800 CHAYO Administration Atorvastatin Calcium 20 mg 03/07/24 09:00 03/07/24 08:45 Atorvastatin 20 Mg Tablet PO 20 mg DAILY CHAYO Administration Dextrose 12.5 gm 03/07/24 08:10 Dextrose 50% 25 Gm/50 Ml Syringe IV PUSH PRN PRN Hypoglycemia Protocol Enoxaparin Sodium 30 mg 03/06/24 09:00 03/07/24 08:45 Enoxaparin 30 Mg/0.3 Ml Syringe SUB-Q 30 mg DAILY CHAYO Administration Epoetin Srinivas-epbx 10,000 units 03/07/24 09:00 03/07/24 12:00 Epoetin Srinivas-Epbx 10,000 Units/Ml Vial SUB-Q 10,000 units MOWEFR@09 CHAYO Administration Fluticasone Propionate 2 spray 03/07/24 09:00 03/07/24 08:46 Fluticasone Propionate 0.05% Na Spr 16 Gm Btl (*Bkc) NASAL Not Given DAILY [facility] Gabapentin 200 mg 03/06/24 18:20 03/07/24 17:47 Gabapentin 100 Mg Capsule PO 200 mg TID CHAYO Administration Glucagon 1 mg 03/07/24 08:10 Glucagon For Inj 1 Mg Vial IM PRN PRN Hypoglycemia Protocol Glucose 15 gm 03/07/24 08:10 Glucose Oral Gel 15 Gm Of Glucse In 37.5 Gm Tube PO PRN PRN Hypoglycemia Protocol Hydralazine HCl 10 mg 03/07/24 16:27 03/07/24 17:49 Hydralazine 10 Mg Tablet PO 10 mg QID PRN Administration Hypertension Ceftriaxone Sodium 2 gm in 100 mls @ 200 mls/hr 03/07/24 07:00 03/07/24 09:30 Rocephin 2 Gm/Ns 100 Ml IVPB Infused Q24H [facility] Infusion Dextrose 1,000 mls @ 100 mls/hr 03/07/24 08:10 Dextrose 5% 1,000 Ml IVPB PRN PRN Hypoglycemia Protocol Insulin Aspart 2 - 5 units 03/07/24 12:00 03/07/24 17:18 Insulin Aspart (*Bkc) 100 Units/Ml SUB-Q Not Given TIDWM [facility] Protocol Insulin Glargine 14 units 03/07/24 21:00 Insulin Glargine (*Bkc) 100 Units/Ml SUB-Q [facility] Labetalol HCl 200 mg 03/06/24 21:00 03/07/24 08:32 Labetalol Hcl 100 Mg Tablet PO 200 mg Q12H [facility] Administration Morphine Sulfate 2 mg 03/06/24 07:39 Morphine Sulfate (*Crx) 2 Mg/Ml Inj IV PUSH Q4H PRN Pain Rated 7-10 Ondansetron HCl 4 mg 03/06/24 07:39 Ondansetron Inj 4 Mg/2 Ml Vial IV PUSH Q4H PRN Nausea And Vomiting Polyethylene Glycol 17 gm 03/07/24 13:52 03/07/24 14:11 Polyethylene Glycol 3350 17 Gm Powd.Pack PO 17 gm DAILY PRN Administration Constipation Sevelamer Carbonate 1,600 mg 03/07/24 08:00 03/07/24 17:17 Sevelamer Carbonate 800 Mg Tablet PO Not Given TIDWM [facility] Radiology Results: ITS Impressions Abdomen/Pelvis CT 03/06/24 09:36 IMPRESSION: Peritoneal dialysis catheter and mild ascites Mild cardiomegaly Status post cholecystectomy 1.3 cm medial upper pole right renal cyst Extensive atherosclerosis Labs Labs: Laboratory Tests 03/07/24 04:21 03/07/24 04:21 Calcium 8.5 Phosphorus 4.6 H Albumin 2.7 L Microbiology 03/06/24 03:25 Urine Clean Catch Urine Culture - Final 03/06/24 00:44 Ascites Fluid Gram Stain - Final 03/06/24 00:44 Ascites Fluid Anaerobic Culture - Preliminary 03/06/24 00:10 Blood Blood Culture - Preliminary 03/06/24 00:10 Blood Blood Culture - Preliminary
[2024-03-07] MEDS: EPOETIN ALFA-EPBX 10,000 UNITS/ML VIAL 10000 UNITS SUB-Q (12:00)
[2024-03-07 12:29] LABS: Glucose Point of Care 132 mg/dl (65-105)
[2024-03-07] MEDS: polyethylene glycoL 3350 17 GM POWD.PACK PO (14:11)
[2024-03-07] MEDS: BISACODYL 10 MG SUPPOSITORY RECTAL (14:11)
--- NOTE | 2024-03-07 16:03 | PM.IMPN ---
Progress Note: A&P Assessment and Plan (1) Abdominal pain: Code(s): R10.9 - Unspecified abdominal pain Status: Acute Assessment and Plan: 03/07/24 Initial reason for admission. Pain improved overall. Cultures of peritoneal fluid pending. (2) Diabetes mellitus type 2, insulin dependent: Code(s): E11.9 - Type 2 diabetes mellitus without complications; Z79.4 - tank terminal gauger (current) use of insulin Status: Chronic Assessment and Plan: Pt is poorly compliant - hadn't checked her glucose since middle january elementary educator ordered for pt. Continue current glucose regimen. (3) End-stage renal disease on peritoneal dialysis: Code(s): N18.6 - End stage renal disease; Z99.2 - Dependence on renal dialysis Status: Chronic Assessment and Plan: Peritoneal Dialysis. Nephrology following. Cr at baseline. (4) Hypertension: Code(s): I10 - Essential (primary) hypertension Status: Chronic Assessment and Plan: Continue home medications. It does appear that pt's BP is fluctuating from time to time and overnight her SBP was in the 200s. Will add prn Hydralazine for pt. (5) Dyslipidemia: Code(s): E78.5 - Hyperlipidemia, unspecified Status: Chronic Assessment and Plan: Continue Chronic statin therapy. Time Spent With Patient Time with patient: 15 - 25 minutes Subjective Date/time seen: 03/07/24 2200 Interval history: Pt examined at the bedside today in routine evaluation. She states she feels better overall. Tolerating po intake. Receiving Rocephin IV, cultures of blood and peritoneal fluid is still pending. Pt does PD and she is currently being managed by Nephrology. Review of Systems Review of Systems: All systems reviewed & are unremarkable except as noted in HPI and below Exam Narrative: resting in bed, calm and comfortable Const: General: comfortable Resp: Effort & Inspection: normal respiratory effort Auscultation: clear to auscultation bilaterally Cardio: Rate: regular rate Rhythm: regular rhythm GI: Inspection: distended GI Palp: Yes Soft to palpation and No Tenderness to palpation present (GI) Auscultation: normal bowel sounds Skin: General skin exam: normal color Psych: Mental Status: mental status grossly normal Affect: normal affect Objective Data Vital Signs Vital Signs: Vital Signs - 24 hr 03/06/24 18:00 03/06/24 20:00 03/06/24 20:00 Temperature 97.7 F Pulse Rate 82 84 Respiratory Rate 24 H Blood Pressure 214/94 H Pulse Oximetry 100 100 Oxygen Delivery Room Air 03/06/24 20:00 03/06/24 20:08 03/06/24 22:00 Temperature Pulse Rate 82 85 85 Respiratory Rate Blood Pressure Pulse Oximetry Oxygen Delivery 03/06/24 23:40 03/06/24 23:53 03/07/24 00:00 Temperature 97.5 F L Pulse Rate 85 84 Respiratory Rate 20 Blood Pressure 153/82 H Pulse Oximetry 98 100 Oxygen Delivery Room Air 03/07/24 02:00 03/07/24 03:57 03/07/24 04:00 Temperature 98.0 F Pulse Rate 90 91 Respiratory Rate 16 Blood Pressure 166/84 H Pulse Oximetry 100 100 Oxygen Delivery Room Air 03/07/24 04:00 03/07/24 06:00 03/07/24 08:00 Temperature 98 F Pulse Rate 81 85 82 Respiratory Rate 16 Blood Pressure 153/78 H Pulse Oximetry 100 Oxygen Delivery 03/07/24 08:32 03/07/24 08:45 03/07/24 10:00 Temperature Pulse Rate 79 86 84 Respiratory Rate Blood Pressure Pulse Oximetry Oxygen Delivery 03/07/24 12:00 Temperature 98.3 F Pulse Rate 70 Respiratory Rate 16 Blood Pressure 142/70 H Pulse Oximetry 100 Oxygen Delivery Intake/Output Intake/Output: Intake & Output 03/04/24 03/05/24 03/06/24 03/07/24 23:59 23:59 23:59 23:59 Intake Total 421.7 880 Output Total 1000 Balance 421.7 -120 Meds/Results Medications: Active Medications Generic Name Dose Route Start Last Admin Trade Name Freq PRN Reason Stop Dose Admin Hydrocodone Bitart/Acetaminophen 1 tab 03/06/24 07:40 Hydrocodone/Acetaminophen (*Crx) 5-325 Mg Tablet PO Q4H PRN Pain Rated 4-6 Amlodipine Besylate 5 mg 03/06/24 18:20 03/07/24 08:34 Amlodipine Besylate 5 Mg Tablet PO 5 mg DAILY CH[facility]O Administration Aspirin 81 mg 03/07/24 08:00 03/07/24 08:31 Aspirin 81 Mg Chewable Tablet PO 81 mg DAILY@0800 [facility] Administration Atorvastatin Calcium 20 mg 03/07/24 09:00 03/07/24 08:45 Atorvastatin 20 Mg Tablet PO 20 mg DAILY [facility]O Administration Dextrose 12.5 gm 03/07/24 08:10 Dextrose 50% 25 Gm/50 Ml Syringe IV PUSH PRN PRN Hypoglycemia Protocol Enoxaparin Sodium 30 mg 03/06/24 09:00 03/07/24 08:45 Enoxaparin 30 Mg/0.3 Ml Syringe SUB-Q 30 mg DAILY CHAYO Administration Epoetin Srinivas-epbx 10,000 units 03/07/24 09:00 03/07/24 12:00 Epoetin Srinivas-Epbx 10,000 Units/Ml Vial SUB-Q 10,000 units MOWEFR@09 [facility] Administration Fluticasone Propionate 2 spray 03/07/24 09:00 03/07/24 08:46 Fluticasone Propionate 0.05% Na Spr 16 Gm Btl (*Bkc) NASAL Not Given DAILY [facility] Gabapentin 200 mg 03/06/24 18:20 03/07/24 12:01 Gabapentin 100 Mg Capsule PO 200 mg TID CH[facility]O Administration Glucagon 1 mg 03/07/24 08:10 Glucagon For Inj 1 Mg Vial IM PRN PRN Hypoglycemia Protocol Glucose 15 gm 03/07/24 08:10 Glucose Oral Gel 15 Gm Of Glucse In 37.5 Gm Tube PO PRN PRN Hypoglycemia Protocol Ceftriaxone Sodium 2 gm in 100 mls @ 200 mls/hr 03/07/24 07:00 03/07/24 09:30 Rocephin 2 Gm/Ns 100 Ml IVPB Infused Q24H [facility]O Infusion Dextrose 1,000 mls @ 100 mls/hr 03/07/24 08:10 Dextrose 5% 1,000 Ml IVPB PRN PRN Hypoglycemia Protocol Insulin Aspart 2 - 5 units 03/07/24 12:00 03/07/24 11:57 Insulin Aspart (*Bkc) 100 Units/Ml SUB-Q Not Given TIDWM [facility] Protocol Insulin Glargine 14 units 03/07/24 21:00 Insulin Glargine (*Bkc) 100 Units/Ml SUB-Q HS [facility] Labetalol HCl 200 mg 03/06/24 21:00 03/07/24 08:32 Labetalol Hcl 100 Mg Tablet PO 200 mg Q12H [facility] Administration Miscellaneous Information 1 each 03/07/24 00:01 03/07/24 14:22 Med Rec Order Clarification XX 04/06/24 00:00 Not Given [facility]ARIFY [facility] Morphine Sulfate 2 mg 03/06/24 07:39 Morphine Sulfate (*Crx) 2 Mg/Ml Inj IV PUSH Q4H PRN Pain Rated 7-10 Ondansetron HCl 4 mg 03/06/24 07:39 Ondansetron Inj 4 Mg/2 Ml Vial IV PUSH Q4H PRN Nausea And Vomiting Polyethylene Glycol 17 gm 03/07/24 13:52 03/07/24 14:11 Polyethylene Glycol 3350 17 Gm Powd.Pack PO 17 gm DAILY PRN Administration Constipation Sevelamer Carbonate 1,600 mg 03/07/24 08:00 03/07/24 11:58 Sevelamer Carbonate 800 Mg Tablet PO 1,600 mg TIDWM [facility] Administration Radiology Results: ITS Impressions Abdomen/Pelvis CT 03/06/24 09:36 IMPRESSION: Peritoneal dialysis catheter and mild ascites Mild cardiomegaly Status post cholecystectomy 1.3 cm medial upper pole right renal cyst Extensive atherosclerosis Labs Labs: Laboratory Results - last 24 hr 03/06/24 03/06/24 03/07/24 18:44 21:44 04:17 WBC RBC Hgb Hct MCV MCH MCHC RDW Plt Count MPV Immature Gran % (Auto) Neut % (Auto) Lymph % (Auto) Weld % (Auto) Eos % (Auto) Baso % (Auto) Lymph # (Auto) Weld # (Auto) Eos # (Auto) Baso # (Auto) Abs Immat Gran (auto) Absolute Neuts (auto) Absolute Nucleated RBC Nucleated RBC % Sodium Potassium Chloride Carbon Dioxide Anion Gap BUN Creatinine Estim Creat Clear Calc Estimated GFR Glucose POC Capillary Glucose 281 H 225 H Hemoglobin A1c 5.9 H Calcium Phosphorus Albumin Hep Bs Antigen Hep Bs Antibody 03/07/24 03/07/24 03/07/24 04:21 07:49 10:53 WBC 8.7 RBC 3.46 L Hgb 9.2 L Hct 30.9 L MCV 89.3 MCH 26.6 MCHC 29.8 L RDW 14.6 H Plt Count 338 MPV 9.5 Immature Gran % (Auto) 0.8 H Neut % (Auto) 58.9 Lymph % (Auto) 30.5 Weld % (Auto) 5.1 Eos % (Auto) 4.0 Baso % (Auto) 0.7 Lymph # (Auto) 2.65 Weld # (Auto) 0.4 Eos # (Auto) 0.4 H Baso # (Auto) 0.1 Abs Immat Gran (auto) 0.07 H Absolute Neuts (auto) 5.1 Absolute Nucleated RBC 0.000 Nucleated RBC % 0.0 Sodium 132 L Potassium 3.8 Chloride 99 Carbon Dioxide 26 Anion Gap 7 BUN 42 H Creatinine 10.02 H Estim Creat Clear Calc 7 Estimated GFR 5 L Glucose 331 H POC Capillary Glucose 301 H 132 H Hemoglobin A1c Calcium 8.5 Phosphorus 4.6 H Albumin 2.7 L Hep Bs Antigen Negative Hep Bs Antibody Positive Quality VTE Prophylaxis VTE prophylaxis: pharmacologic ordered
[2024-03-07 16:25] LABS: Glucose Point of Care 121 mg/dl (65-105)
[2024-03-07] MEDS: hydrALAZINE 10 MG TABLET PO (17:49)
--- NOTE | 2024-03-07 18:05 | PC.NURSE ---
Pt med/surg status - report given to SEN RN- pt moved to room 348 via bed accompanied by staff - belonging with pt
--- NOTE | 2024-03-07 18:15 | PC.NURSE ---
This patient, Bakari Smith, was received from [facility] on 03/07/24 at 1815. Patient/family oriented to unit policies and routines.
[2024-03-07] MEDS: INSULIN GLARGINE (*BKC) 100 UNITS/ML 14 UNITS SUB-Q (21:15)
[2024-03-07 21:34] LABS: Glucose Point of Care 172 mg/dl (65-105)
[2024-03-07] MEDS: HYDROcodone/acetaminophen (*CRX) 5-325 MG TABLET 1 TAB PO (23:11)
--- NOTE | 2024-03-07 23:47 | PC.NURSE ---
PD nurse arrived at 2343 to eligibility supervisor pt. Pt was very upset. This nurse placed multiple phone calls to dialysis to inquire they always said they were on their way
[2024-03-08 06:00] VITALS: BP 186/84; PULSE 77; RESP 20; TEMP 36.6; O2SAT 98
[2024-03-08 06:01] LABS: Basophils Percent Auto 0.5 % (0.2-1.2); Eosinophils Absolute Auto 0.4 K/mm3 (0-0.3); Eosinophils Percent Auto 4.7 % (0-4.4); Hematocrit 28.2 % (37.0-47.0); Hemoglobin 8.4 g/dL (12.0-15.0); Immature Granulocyte Absolute 0.09 K/mm3 (0.00-0.031); Immature Granulocyte Percent A 1.2 % (0-0.5); Lymphocytes Percent Auto 35.4 % (18.3-44.2); Mean Corpuscular HGB Conc 29.8 g/dl (32-36); Mean Corpuscular Hemoglobin 26.1 pg (26-34); Mean Corpuscular Volume 87.6 fl (80-100); Mean Platelet Volume 9.4 fl (7.4-10.4); Monocytes Absolute Auto 0.5 K/mm3 (0.1-0.6); Neutrophils Percent Auto 52.2 % (45.5-73.1); Nucleated Red Blood Cells Perc 0.3 % (0.0-0.2); Platelet Count Result 322 k/mm3 (150-375); Red Blood Count 3.22 M/mm3 (4.2-5.4); Red Cell Distribution Width 14.7 % (11.5-14.5); White Blood Count 7.6 K/mm3 (4.5-10.0)
[2024-03-08 06:18] LABS: Alanine Aminotransferase 40 U/L (6-35); Albumin Level 2.4 g/dL (3.5-5.1); Alkaline Phosphatase 294 U/L (38-126); Anion Gap 1 mmol/L (4-12); Aspartate Amino Transferase 35 U/L (14-36); Bilirubin,Total 0.3 mg/dL (0.2-1.3); Blood Urea Nitrogen 40 mg/dL (7-17); Calcium 8.2 mg/dL (8.4-10.2); Carbon Dioxide 29 mmol/L (22-30); Chloride 103 mmol/L (98-107); Estimated CRCL calculation 7 ml/min; Estimated Glomerular Filt Rate 5; Glucose 245 mg/dL (65-110); Potassium 3.9 mmol/L (3.4-5.0); Sodium 133 mmol/L (137-145)
[2024-03-08 06:36] LABS: Hypochromasia 2+; Platelet Estimate Adequate (Adequate); Schistocytes None Seen
[2024-03-08] MEDS: ATORVASTATIN 20 MG TABLET PO (08:40)
[2024-03-08] MEDS: ENOXAPARIN 30 MG/0.3 ML SYRINGE SUB-Q (08:40)
[2024-03-08] MEDS: LABETALOL HCL 100 MG TABLET 200 MG PO (08:40)
[2024-03-08] MEDS: GABAPENTIN 100 MG CAPSULE 200 MG PO ×2 (08:40→12:40)
[2024-03-08] MEDS: amLODIPine BESYLATE 5 MG TABLET PO (08:40)
[2024-03-08] MEDS: ASPIRIN 81 MG CHEWABLE TABLET PO (08:40)
[2024-03-08] MEDS: cefTRIAXone 2 GM/NS 100 ML 2 GM/100 ML BAG IVPB (08:42)
--- NOTE | 2024-03-08 09:40 | PM.IMPN ---
Progress Note: A&P Assessment and Plan (1) Abdominal pain: Code(s): R10.9 - Unspecified abdominal pain Status: Acute Assessment and Plan: possible SBP Pain improved overall. Cultures of peritoneal fluid pending. Rocephin (2) Diabetes mellitus type 2, insulin dependent: Code(s): E11.9 - Type 2 diabetes mellitus without complications; Z79.4 - custodial (current) use of insulin Status: Chronic Assessment and Plan: Pt is poorly compliant - hadn't checked her glucose since middle january consumer educator ordered for pt. Continue current glucose regimen. (3) End-stage renal disease on peritoneal dialysis: Code(s): N18.6 - End stage renal disease; Z99.2 - Dependence on renal dialysis Status: Chronic Assessment and Plan: Peritoneal Dialysis. Nephrology following. Cr at baseline. (4) Hypertension: Code(s): I10 - Essential (primary) hypertension Status: Chronic Assessment and Plan: Continue home medications. It does appear that pt's BP is fluctuating from time to time and overnight her SBP was in the 200s. Will add prn Hydralazine for pt. (5) Dyslipidemia: Code(s): E78.5 - Hyperlipidemia, unspecified Status: Chronic Assessment and Plan: Continue Chronic statin therapy. Time Spent With Patient Time with patient: Greater than 35 minutes Subjective Date/time seen: 03/08/24 09:40 Interval history: 43 year old female with PMH/o ESRD (on peritoneal dialysis) CKD stage5, obesity, GERD, erythropoietin deficiency anemia, arthritis rt wrist, lt knee, IBS, diabetes, neuropathy, HTN presented to the ER for abdominal pain. abdominal pain improving peritoneal fluid cultures pending, sodium 133, glucose 245, liver enzymes stable, albumin and protein low, on Rocephin Review of Systems Review of Systems: All systems reviewed & are unremarkable except as noted in HPI and below Constitutional: Constitutional: Denies chills Cardiovascular: Cardiovascular: Denies chest pain Respiratory: Respiratory: Denies chest congestion and Denies cough Gastrointestinal: Gastrointestinal: Reports abdominal pain Musculoskeletal: Musculoskeletal: Denies back pain Psychiatric: Psychiatric: Denies anxiety Exam Narrative: General: well appearing, appears stated age. HEENT: normocephalic, atraumatic. Mucous membranes moist. EOMI, PERRLA, bilateral sclera anicteric, no conjunctival injection. Neck supple without JVD, lymphadenopathy, or bruit. Respiratory: clear to ascultation bilaterally. No rales/rhonic/wheezes. Cardiovascular: Regular rate and rhythm, normal S1-S2 upon ascultation. No murmurs, rubs, or clicks. PMI is nondisplaced, capillary refill less than 3 second. Abdomen: Soft, round, no pulsatile masses, nondistended and nontender. No rebound, no guarding. No CVA tenderness, no hepatosplenomegaly. Bowel sounds present to all four quadrants. No high pitch or tinkling sounds, resonant to percussion. Extremities: No cyanosis, clubbing, or edema present. Pulses are palpable 2/2. Active ROM to all four extremities. Neuro: Alert and orientated x 4. PERRLA. Cranial nerves 2-12 intact without focal deficit. Skin: Warm, dry, and intact, without rash, erythema, or lesion. Psych: pleasant, cooperative, normal speech, normal affect, no hallucinations, no dysarthia Objective Data Vital Signs Vital Signs: Vital Signs - 24 hr 03/07/24 10:00 03/07/24 12:00 03/07/24 12:00 Temperature 98.3 F Pulse Rate 84 70 84 Respiratory Rate 16 Blood Pressure 142/70 H Pulse Oximetry 100 Oxygen Delivery Room Air Oxygen Flow Rate Fraction of Inspired Oxygen 03/07/24 12:00 03/07/24 16:00 03/07/24 18:50 Temperature 98.1 F 97.3 F L Pulse Rate 84 89 87 Respiratory Rate 16 18 Blood Pressure 188/94 H 175/78 H Pulse Oximetry 100 100 Oxygen Delivery Oxygen Flow Rate Fraction of Inspired Oxygen 03/07/24 20:00 03/07/24 22:00 03/07/24 23:48 Temperature 97.1 F L Pulse Rate 84 81 Respiratory Rate 20 Blood Pressure 167/88 H Pulse Oximetry 100 Oxygen Delivery Room Air Oxygen Flow Rate 0 Fraction of Inspired Oxygen 0 03/08/24 06:00 Temperature 97.8 F Pulse Rate 77 Respiratory Rate 20 Blood Pressure 186/84 H Pulse Oximetry 98 Oxygen Delivery Oxygen Flow Rate Fraction of Inspired Oxygen Intake/Output Intake/Output: Intake & Output 03/05/24 03/06/24 03/07/24 03/08/24 23:59 23:59 23:59 23:59 Intake Total 421.7 1720 400 Output Total 1260 Balance 421.7 460 400 Meds/Results Medications: Active Medications Generic Name Dose Route Start Last Admin Trade Name Freq PRN Reason Stop Dose Admin Hydrocodone Bitart/Acetaminophen 1 tab 03/06/24 07:40 03/07/24 23:11 Hydrocodone/Acetaminophen (*Crx) 5-325 Mg Tablet PO 1 tab Q4H PRN Administration Pain Rated 4-6 Amlodipine Besylate 5 mg 03/06/24 18:20 03/08/24 08:40 Amlodipine Besylate 5 Mg Tablet PO 5 mg DAILY [facility]O Administration Aspirin 81 mg 03/07/24 08:00 03/08/24 08:40 Aspirin 81 Mg Chewable Tablet PO 81 mg DAILY@0800 [facility]O Administration Atorvastatin Calcium 20 mg 03/07/24 09:00 03/08/24 08:40 Atorvastatin 20 Mg Tablet PO 20 mg DAILY [facility] Administration Dextrose 12.5 gm 03/07/24 08:10 Dextrose 50% 25 Gm/50 Ml Syringe IV PUSH PRN PRN Hypoglycemia Protocol Enoxaparin Sodium 30 mg 03/06/24 09:00 03/08/24 08:40 Enoxaparin 30 Mg/0.3 Ml Syringe SUB-Q 30 mg DAILY [facility]O Administration Epoetin Srinivas-epbx 10,000 units 03/07/24 09:00 03/07/24 12:00 Epoetin Srinivas-Epbx 10,000 Units/Ml Vial SUB-Q 10,000 units MOWEFR@09 [facility] Administration Fluticasone Propionate 2 spray 03/07/24 09:00 03/08/24 08:41 Fluticasone Propionate 0.05% Na Spr 16 Gm Btl (*Bkc) NASAL Not Given DAILY REPLACED BY [facility] Gabapentin 200 mg 03/06/24 18:20 03/08/24 08:40 Gabapentin 100 Mg Capsule PO 200 mg TID [facility]O Administration Glucagon 1 mg 03/07/24 08:10 Glucagon For Inj 1 Mg Vial IM PRN PRN Hypoglycemia Protocol Glucose 15 gm 03/07/24 08:10 Glucose Oral Gel 15 Gm Of Glucse In 37.5 Gm Tube PO PRN PRN Hypoglycemia Protocol Hydralazine HCl 10 mg 03/07/24 16:27 03/07/24 17:49 Hydralazine 10 Mg Tablet PO 10 mg QID PRN Administration Hypertension Ceftriaxone Sodium 2 gm in 100 mls @ 200 mls/hr 03/07/24 07:00 03/08/24 08:42 Rocephin 2 Gm/Ns 100 Ml IVPB 200 mls/hr Q24H [facility] Administration Dextrose 1,000 mls @ 100 mls/hr 03/07/24 08:10 Dextrose 5% 1,000 Ml IVPB PRN PRN Hypoglycemia Protocol Insulin Aspart 2 - 5 units 03/07/24 12:00 03/07/24 17:18 Insulin Aspart (*Bkc) 100 Units/Ml SUB-Q Not Given TIDWM REPLACED BY [facility] Protocol Insulin Glargine 14 units 03/07/24 21:00 03/07/24 21:15 Insulin Glargine (*Bkc) 100 Units/Ml SUB-Q 14 units HS [facility] Administration Labetalol HCl 200 mg 03/06/24 21:00 03/08/24 08:40 Labetalol Hcl 100 Mg Tablet PO 200 mg Q12H [facility] Administration Morphine Sulfate 2 mg 03/06/24 07:39 Morphine Sulfate (*Crx) 2 Mg/Ml Inj IV PUSH Q4H PRN Pain Rated 7-10 Ondansetron HCl 4 mg 03/06/24 07:39 Ondansetron Inj 4 Mg/2 Ml Vial IV PUSH Q4H PRN Nausea And Vomiting Polyethylene Glycol 17 gm 03/07/24 13:52 03/07/24 14:11 Polyethylene Glycol 3350 17 Gm Powd.Pack PO 17 gm DAILY PRN Administration Constipation Sevelamer Carbonate 1,600 mg 03/07/24 08:00 03/07/24 17:17 Sevelamer Carbonate 800 Mg Tablet PO Not Given TIDWM REPLACED BY [facility] Radiology Results: ITS Impressions Abdomen/Pelvis CT 03/06/24 09:36 IMPRESSION: Peritoneal dialysis catheter and mild ascites Mild cardiomegaly Status post cholecystectomy 1.3 cm medial upper pole right renal cyst Extensive atherosclerosis Labs Labs: Laboratory Results - last 24 hr 03/07/24 03/07/24 03/07/24 10:53 16:03 21:13 WBC RBC Hgb Hct MCV MCH MCHC RDW Plt Count MPV Immature Gran % (Auto) Neut % (Auto) Lymph % (Auto) Terrell % (Auto) Eos % (Auto) Baso % (Auto) Lymph # (Auto) Terrell # (Auto) Eos # (Auto) Baso # (Auto) Abs Immat Gran (auto) Absolute Neuts (auto) Absolute Nucleated RBC Nucleated RBC % Platelet Estimate Hypochromasia Schistocytes Sodium Potassium Chloride Carbon Dioxide Anion Gap BUN Creatinine Estim Creat Clear Calc Estimated GFR Glucose POC Capillary Glucose 132 H 121 H 172 H Calcium Total Bilirubin AST ALT Alkaline Phosphatase Total Protein Albumin 03/08/24 05:37 WBC 7.6 RBC 3.22 L Hgb 8.4 L Hct 28.2 L MCV 87.6 MCH 26.1 MCHC 29.8 L RDW 14.7 H Plt Count 322 MPV 9.4 Immature Gran % (Auto) 1.2 H Neut % (Auto) 52.2 Lymph % (Auto) 35.4 Terrell % (Auto) 6.0 Eos % (Auto) 4.7 H Baso % (Auto) 0.5 Lymph # (Auto) 2.70 Terrell # (Auto) 0.5 Eos # (Auto) 0.4 H Baso # (Auto) 0.0 Abs Immat Gran (auto) 0.09 H Absolute Neuts (auto) 4.0 Absolute Nucleated RBC 0.020 H Nucleated RBC % 0.3 H Platelet Estimate Adequate Hypochromasia 2+ Schistocytes None seen Sodium 133 L Potassium 3.9 Chloride 103 Carbon Dioxide 29 Anion Gap 1 L BUN 40 H Creatinine 10.53 H Estim Creat Clear Calc 7 Estimated GFR 5 L Glucose 245 H POC Capillary Glucose Calcium 8.2 L Total Bilirubin 0.3 AST 35 ALT 40 H Alkaline Phosphatase 294 H Total Protein 5.0 L Albumin 2.4 L Quality VTE Prophylaxis VTE prophylaxis: pharmacologic ordered
[2024-03-08 09:45] VITALS: BP 186/84; PULSE 77; RESP 20; TEMP 36.6
[2024-03-08] MEDS: SEVELAMER CARBONATE 800 MG TABLET 1600 MG PO ×2 (09:50→12:40)
[2024-03-08] MEDS: INSULIN ASPART (*BKC) 100 UNITS/ML SUB-Q ×2 (09:56→12:41)
[2024-03-08 09:58] LABS: Glucose Point of Care 216 mg/dl (65-105)
--- NOTE | 2024-03-08 11:25 | P.PNNP_ITS ---
Progress Note: A&P Assessment and Plan (1) End stage renal disease: Code(s): N18.6 - End stage renal disease Status: Chronic Assessment and Plan: * continue nightly CCPD * follow electrolytes, volume status, and clearance (2) Peritonitis: Code(s): K65.9 - Peritonitis, unspecified Status: Acute Assessment and Plan: * likely etiology of abdominal pain on admission * highly suggestive based on PD fluid analysis * repeat PD fluid cell count with improvement * PD fluid cultures with Staph epidermis * dosed intraperitoneal vancomycin (on Thursday) * will likely continue intraperitoneal antibiotics on discharge pending culture reuslts (3) Hypertension: Code(s): I10 - Essential (primary) hypertension Status: Chronic Assessment and Plan: * reasonable control * continue home medications * follow trend of hemodynamics (4) Anemia: Code(s): D64.9 - Anemia, unspecified Status: Chronic Assessment and Plan: * due to ESRD * Epogen while hospitalized * follow trend of H/H (5) Diabetes: Code(s): E11.9 - Type 2 diabetes mellitus without complications Status: Chronic Assessment and Plan: * follow accuchecks * glycemic control per hospitalists Not opposed to discharge from renal perspective if otherwise medically stable -- I will arrange for outpatient intraperitoneal antibiotics to complete treatment for her peritonitis. Will continue to follow. L Subjective Date/time seen: 03/08/24 11:25 Interval history: Follow-up for end stage renal disease on peritoneal dialysis. Tolerated peritoneal dialysis treatment overnight without any issue or problems; no further abdominal pain noted at the time of my visit; overall, feels significantly better in general in comparison to admission; no apparent distress noted; asking me about possible discharge. Exam 2 Narrative: General: WD/WN female in NAD Heart: normal S1 and S2; no rub Lungs: clear to auscultation Abdomen: soft, nontender, nondistended, positive bowel sounds Extremities: no cyanosis or clubbing; no edema Skin: warm and intact Objective Data Vital Signs Vital Signs: Vital Signs Temp Pulse Resp BP Pulse Ox O2 Del Method O2 Flow Rate 03/08/24 09:45 97.8 F 77 20 186/84 H 03/08/24 08:38 Room Air 03/08/24 06:00 97.8 F 77 20 186/84 H 98 03/07/24 23:48 0 03/07/24 22:00 97.1 F L 81 20 167/88 H 100 03/07/24 20:00 84 Room Air 03/07/24 18:50 97.3 F L 87 18 175/78 H 100 03/07/24 16:00 98.1 F 89 16 188/94 H 100 Intake/Output Intake/Output: Intake & Output 03/05/24 03/06/24 03/07/24 03/08/24 23:59 23:59 23:59 23:59 Intake Total 421.7 1720 1520 Output Total 1260 1126 Balance 421.7 460 394 Meds/Results Medications: Active Medications Generic Name Dose Route Start Last Admin Trade Name Freq PRN Reason Stop Dose Admin Hydrocodone Bitart/Acetaminophen 1 tab 03/06/24 07:40 03/07/24 23:11 Hydrocodone/Acetaminophen (*Crx) 5-325 Mg Tablet PO 1 tab Q4H PRN Administration Pain Rated 4-6 Amlodipine Besylate 5 mg 03/06/24 18:20 03/08/24 08:40 Amlodipine Besylate 5 Mg Tablet PO 5 mg DAILY CH[facility]O Administration Aspirin 81 mg 03/07/24 08:00 03/08/24 08:40 Aspirin 81 Mg Chewable Tablet PO 81 mg DAILY@0800 [facility]O Administration Atorvastatin Calcium 20 mg 03/07/24 09:00 03/08/24 08:40 Atorvastatin 20 Mg Tablet PO 20 mg DAILY [facility]O Administration Dextrose 12.5 gm 03/07/24 08:10 Dextrose 50% 25 Gm/50 Ml Syringe IV PUSH PRN PRN Hypoglycemia Protocol Enoxaparin Sodium 30 mg 03/06/24 09:00 03/08/24 08:40 Enoxaparin 30 Mg/0.3 Ml Syringe SUB-Q 30 mg DAILY CH[facility]O Administration Epoetin Srinivas-epbx 10,000 units 03/07/24 09:00 03/07/24 12:00 Epoetin Srinivas-Epbx 10,000 Units/Ml Vial SUB-Q 10,000 units MOWEFR@09 [facility] Administration Fluticasone Propionate 2 spray 03/08/24 09:54 Fluticasone Propionate 0.05% Na Spr 16 Gm Btl (*Bkc) NASAL DAILY PRN allergy symptoms Gabapentin 200 mg 03/06/24 18:20 03/08/24 12:40 Gabapentin 100 Mg Capsule PO 200 mg TID CHAYO Administration Glucagon 1 mg 03/07/24 08:10 Glucagon For Inj 1 Mg Vial IM PRN PRN Hypoglycemia Protocol Glucose 15 gm 03/07/24 08:10 Glucose Oral Gel 15 Gm Of Glucse In 37.5 Gm Tube PO PRN PRN Hypoglycemia Protocol Hydralazine HCl 10 mg 03/07/24 16:27 03/07/24 17:49 Hydralazine 10 Mg Tablet PO 10 mg QID PRN Administration Hypertension Hydralazine HCl 100 mg 03/08/24 09:00 03/08/24 11:38 Hydralazine Hcl 50 Mg Tablet PO 100 mg Q12H [facility]O Administration Ceftriaxone Sodium 2 gm in 100 mls @ 200 mls/hr 03/07/24 07:00 03/08/24 08:42 Rocephin 2 Gm/Ns 100 Ml IVPB 200 mls/hr Q24H [facility] Administration Dextrose 1,000 mls @ 100 mls/hr 03/07/24 08:10 Dextrose 5% 1,000 Ml IVPB PRN PRN Hypoglycemia Protocol Insulin Aspart 2 - 5 units 03/07/24 12:00 03/08/24 12:41 Insulin Aspart (*Bkc) 100 Units/Ml SUB-Q 2 units TIDWM [facility] Administration Protocol Insulin Glargine 14 units 03/07/24 21:00 03/07/24 21:15 Insulin Glargine (*Bkc) 100 Units/Ml SUB-Q 14 units HS [facility] Administration Labetalol HCl 200 mg 03/06/24 21:00 03/08/24 08:40 Labetalol Hcl 100 Mg Tablet PO 200 mg Q12H [facility] Administration Morphine Sulfate 2 mg 03/06/24 07:39 Morphine Sulfate (*Crx) 2 Mg/Ml Inj IV PUSH Q4H PRN Pain Rated 7-10 Ondansetron HCl 4 mg 03/06/24 07:39 Ondansetron Inj 4 Mg/2 Ml Vial IV PUSH Q4H PRN Nausea And Vomiting Polyethylene Glycol 17 gm 03/07/24 13:52 03/07/24 14:11 Polyethylene Glycol 3350 17 Gm Powd.Pack PO 17 gm DAILY PRN Administration Constipation Sevelamer Carbonate 1,600 mg 03/07/24 08:00 03/08/24 12:40 Sevelamer Carbonate 800 Mg Tablet PO 1,600 mg TIDWM [facility] Administration Radiology Results: ITS Impressions Abdomen/Pelvis CT 03/06/24 09:36 IMPRESSION: Peritoneal dialysis catheter and mild ascites Mild cardiomegaly Status post cholecystectomy 1.3 cm medial upper pole right renal cyst Extensive atherosclerosis Labs Labs: Laboratory Tests 03/08/24 05:37 03/08/24 05:37 Calcium 8.2 L Total Bilirubin 0.3 AST 35 ALT 40 H Alkaline Phosphatase 294 H Total Protein 5.0 L Albumin 2.4 L Microbiology 03/06/24 00:44 Ascites Fluid Anaerobic Culture - Preliminary 03/06/24 00:44 Ascites Fluid Aerobic Culture - Preliminary Staphylococcus epidermidis 03/06/24 03:25 Urine Clean Catch Urine Culture - Final 03/06/24 00:44 Ascites Fluid Gram Stain - Final
[2024-03-08] MEDS: hydrALAZINE HCL 50 MG TABLET 100 MG PO (11:38)
[2024-03-08 12:41] LABS: Glucose Point of Care 207 mg/dl (65-105)
[2024-03-08 14:29] VITALS: BP 155/79; PULSE 88; RESP 18; TEMP 36.5; O2SAT 100
--- NOTE | 2024-03-15 11:14 | P.DS_ITS ---
DS: Admitting Diagnosis Discharge Date 03/08/24 Admitting Diagnosis abdominal pain DS: Discharge Diagnosis Discharge Diagnosis (1) Abdominal pain: Code(s): R10.9 - Unspecified abdominal pain Status: Acute Assessment and Plan: possible SBP * Pain improved overall. * Cultures of peritoneal fluid pending. * Rocephin (2) Diabetes mellitus type 2, insulin dependent: Code(s): E11.9 - Type 2 diabetes mellitus without complications; Z79.4 - prison (current) use of insulin Status: Chronic Assessment and Plan: * Pt is poorly compliant - hadn't checked her glucose since middle of january * community health educator ordered for pt. * Continue current glucose regimen. (3) End-stage renal disease on peritoneal dialysis: Code(s): N18.6 - End stage renal disease; Z99.2 - Dependence on renal dialysis Status: Chronic Assessment and Plan: * Peritoneal Dialysis. * Nephrology following. * Cr at baseline. (4) Hypertension: Code(s): I10 - Essential (primary) hypertension Status: Chronic Assessment and Plan: * Continue home medications. * It does appear that pt's BP is fluctuating from time to time and overnight her SBP was in the 200s. * Will add prn Hydralazine for pt. (5) Dyslipidemia: Code(s): E78.5 - Hyperlipidemia, unspecified Status: Chronic Assessment and Plan: * Continue Chronic statin therapy. DS: Summary Hospital Course Reason for hospitalization: SBP Hospital Course: This is a 43 year old female with PMH/o ESRD (on peritoneal dialysis) CKD stage5, obesity, GERD, erythropoietin deficiency anemia, arthritis rt wrist, lt knee, IBS, diabetes, neuropathy, HTN presented to the ER for abdominal pain. It started since waking up from a nap yesterday. Reports she does peritoneal dialysis and the fluid was cloudy, so got concerned she may have peritonitis. Her digital advertising specialist is Dr. Fernandez. In ED: BP was high, 200 systolic- due to pain, improved since pain is better controlled; WBC 11.1. CRP slightly elevated. Lactic acid normal. Peritoneal fluid 31,357 nucleated cells, 80% neutrophils. BC and peritoneal cultures were obtained-pending. Pt was given IV antibiotics: Ceftriaxone 2gm. will reorder daily. Morphine, Zofran. CT abd/pelvis ordered for today. Urine obtained. Nephrology consulted. Pt is seen and examined. She is comfortable in bed, denies any acute pain, no chills, no nausea. IV fluids infusing. She has not been checking her BS lately as didn't have monitor. Her dr finally got her CGM that she is yet to apply. Her last BS was February 06 - and it was about 89. She takes 14 units of Lantus at night. Doesn't smoke, drinks, doesn't smoke marijuana reports trying it once). While patient was in hospital she was treated for possible pneumonia with IV antibiotics. She was seen by Nephrology with sample of cloudy peritoneal fluid sent off for cultures which was positive for staphylococcus epidermidis. BAG SHOP WORKER spoke with Nephrology due to her pain being resolved and improving with IV antibiotics she is stable to discharge on p.o. antibiotics which Nephrology will write for. All assessment on day of discharge patient has no shortness of breath, fevers chills or signs of pneumonia. Will DC antibiotics for pneumonia. Long discussion with patient about monitoring her blood sugars closely as she wishes to be a transplant candidate. Patient was seen by life skills educator and resources have been given to the patient. She will use a glucose monitoring until she can get her [facility] primary diesel retrofit designer after insurance approval. A day discharge patient has hypertension and blood sugars controlled. She has no acute pain and wishes to go home. She will follow-up with Endocrinology and Nephrology. Status at Discharge Functional status at discharge: independent ambulation Time Spent with Patient Time attestation: Total time spent providing and/or coordinating discharge services: Exam Narrative: General: well appearing, appears stated age. HEENT: normocephalic, atraumatic. Mucous membranes moist. EOMI, PERRLA, bilateral sclera anicteric, no conjunctival injection. Neck supple without JVD, lymphadenopathy, or bruit. Respiratory: clear to ascultation bilaterally. No rales/rhonic/wheezes. Cardiovascular: Regular rate and rhythm, normal S1-S2 upon ascultation. No murmurs, rubs, or clicks. PMI is nondisplaced, capillary refill less than 3 second. Abdomen: Soft, round, no pulsatile masses, nondistended and nontender. No rebound, no guarding. No CVA tenderness, no hepatosplenomegaly. Bowel sounds present to all four quadrants. No high pitch or tinkling sounds, resonant to percussion. PD catheter no erythema at site. Extremities: No cyanosis, clubbing, or edema present. Pulses are palpable 2/2. Active ROM to all four extremities. Neuro: Alert and orientated x 4. PERRLA. Cranial nerves 2-12 intact without focal deficit. Skin: Warm, dry, and intact, without rash, erythema, or lesion. Psych: pleasant, cooperative, normal speech, normal affect, no hallucinations, no dysarthia Discharge Plan Discharge Consulting providers: Beth Fernandez; Umang Stacy; Fadi Lofton; Kirsty Tovar; Kalie Colon; Guy Slaughter Discharging Clinician: Ronda Beckman Anticipated Discharge Date/Time: 03/08/24 13:59 Patient Disposition: Home, Self-Care Activity: may shower Diet: diabetic and renal Discharge Instructions: Discharge instructions: Take medications as prescribed New medications prescribed: you have been prescribed an antibiotic by her digital advertising specialist with dialysis You are activity as tolerated Monitor blood pressures Avoid social areas, you wear a mask when in social settings Encouraged to continue with yearly vaccinations Return to the emergency department if he developed sudden shortness of breath, chest pain, nausea, vomiting, upset stomach or intractable diarrhea Return to the emergency department if you develop fever greater than 101.5 Follow-up with: Your primary care physician within 1-2 weeks for post hospitalization check up Thank you for [facility] for your healthcare needs Patient Instructions: Antibiotic Form, Peritonitis (DC) Patient Language: Luxembourgish Stand Alone Forms: General Discharge Information Follow-up/Referrals: Beth Fernandez MD [Physician] - Sulema Lennon APRN [Primary Care Provider] - Discharge Medications: Continued labetalol 300 mg tablet 200 mg PO Q12H amlodipine 5 mg tablet 5 mg PO DAILY atorvastatin 20 mg tablet 20 mg PO DAILY gabapentin 100 mg capsule 200 mg PO TID Qty: 540 1RF (DME) blood-glucose meter [Blood Glucose Monitoring] Kit See Rx Instructions .ROUTE .MEDSUPPLY Qty: 1 0RF Rx Instructions: once (DME) Blood Glucose Test Strip See Rx Instructions .ROUTE .MEDSUPPLY Qty: 100 1RF Rx Instructions: bid (DME) lancets 31 gauge misc See Rx Instructions .ROUTE .MEDSUPPLY Qty: 100 1RF Rx Instructions: bid fluticasone propionate [Flonase Allergy Relief] 50 mcg/actuation spray,suspension 2 spray intranasal DAILY Qty: 48 1RF Rx Instructions: administer into each nostril aspirin [Children's Aspirin] 81 mg Tablet,Chewable 81 mg PO DAILY@0800 Qty: 30 0RF sevelamer carbonate 800 mg tablet 1,600 mg PO TIDWM Patient Comments: Before she eats. hydralazine 100 mg tablet 100 mg PO Q12H Patient Comments: pt stated and verified with picture of medication bottle cholecalciferol (vitamin D3) [Vitamin D3] 125 mcg (5,000 unit) tablet 5,000 unit PO DAILY (DME) [facility] 3 Plus Sensor Device See Rx Instructions .Route Qty: 2 3RF Rx Instructions: Check glucose continuous As directed insulin glargine [Lantus Solostar U-100 Insulin] 100 unit/mL (3 mL) insulin pen 14 unit subcut HS Qty: 15 3RF Discontinued megestrol 40 mg tablet 40 mg PO DAILY Date of admission: 03/06/24 02:07 Primary Care Provider: Sulema Lennon Admitting Provider: Carlos Rodriguez V. Attending physician on admission: Ronda Beckman Condition: Stable Quality VTE Prophylaxis VTE prophylaxis: pharmacologic ordered Hospitalist MIPS Heart Failure (Exclusion) Patient has history of Heart Transplant or Left Ventricular Assistive Device?: No IF YES, STOP HERE Heart Failure (Qualifier) Patient has current or prior documentation of LVEF less than or equal to 40%, or mod/servere depressed LVSF?: No IF NO, STOP HERE
[2024-03-16 20:29] LABS: Albumin Peritoneal Fluid 0.8 g/dL; Amylase Peritoneal Fluid 19 U/L; Glucose Peritoneal Fluid 155 mg/dL; Total Protein Peritoneal Fluid <3.0 g/dL
--- NOTE | 2024-03-21 15:25 | PCCDE ---
03/21/24 3:10 - 3:15 pm Pt reports her glucose is doing good . Denies any DM needs at this time. Reports to upcoming endo appt on Vadalabene. Advised of our outpatient opportunity down the james and process required, if changes mind about additional support. ROSENDO
== END 2024-03-08 15:17 | disposition home or self-care (01) | DRG 867 ==
LOC: ANHED 03-06 02:04 → ANHIMU 03-06 15:34 → ANH3MED 03-07 18:02
PROVIDERS: Internal Medicine Nephrology; Nurse Practitioner Adult Health; Admitting Provider Internal Medicine; Emergency Provider Physician Assistant; PCP Nurse Practitioner Family; Visit Provider Nurse Practitioner Gerontology
DX: T80.29XA Infection following other infusion, transfusion and therapeutic injection, initial encounter (principal); K65.2 Spontaneous bacterial peritonitis; N18.6 End stage renal disease; I12.0 Hypertensive chronic kidney disease with stage 5 chronic kidney disease or end stage renal disease; Z99.2 Dependence on renal dialysis; D63.1 Anemia in chronic kidney disease; E11.22 Type 2 diabetes mellitus with diabetic chronic kidney disease; E11.42 Type 2 diabetes mellitus with diabetic polyneuropathy; K21.9 Gastro-esophageal reflux disease without esophagitis; K58.9 Irritable bowel syndrome, unspecified; K57.30 Diverticulosis of large intestine without perforation or abscess without bleeding; M19.031 Primary osteoarthritis, right wrist; M17.12 Unilateral primary osteoarthritis, left knee; R13.12 Dysphagia, oropharyngeal phase; N25.0 Renal osteodystrophy; Z79.82 Long term (current) use of aspirin; Z79.4 Long term (current) use of insulin; Z91.199 Patient's noncompliance with other medical treatment and regimen due to unspecified reason
CPT/HCPCS: 36415; 74176; 80053; 80069; 81001; 81025; 82042; 82150; 82945; 82948; 83036; 83605; 83615; 83690; 84157; 85025; 85610; 85730; 86140; 86706; 87040; 87070; 87075; 87086; 87181; 87205; 87340; 89051; 90945; 96365; 96375; 99285; A9270; J0696; J1650; J1815; J2270; J2405; Q5105

== ENCOUNTER 2024-04-01 00:58 | Day surgery (SDC) | payer MEDICARE, MEDICAID, SELFPAY ==
[2024-03-22 09:13] VITALS: BMI 34.7
--- NOTE | 2024-03-22 09:23 | PC.NURSE ---
Report to the Outpatient Waiting Room, entrance under the green pavilion located off [facility], at time _0800_ on date _[id number]_. Planned Procedure Time: _1000_.? Time changes happen often and if your time is changed the preop area will call you the afternoon before. - You and your visitor will be asked to self-screen and do not enter if you have any COVID symptoms. Please call surgeon if you need to reschedule. - A mask is optional within the hospital at this time. Patients may have clear liquids (water, carbonated beverages, clear teas, apple juice) until 3 hours prior to surgery with a maximum of 20 ounces. - No food from midnight until time of surgery and no smoking. This includes no chewing gum, candy or mints. Take only the following medications with a SIP of water on the morning of surgery: ___Labetolol, Gabepentin, and Hydralazine DO NOT STOP ANY OF YOUR OTHER PRESCRIPTION MEDICATIONS PRIOR TO SURGERY EXCEPT THE FOLLOWING Medications to discontinue per physician ___Aspirin, please ask Dr Nazario if need to hold. Date to take last dose Hold all vitamins and supplements for 3 days per anesthesiologist. Please no make-up, nail kinyarwanda, hairspray, perfume, deodorant, or body powder the day of surgery.? No jewelry (including any body piercings) or valuables the day of surgery, leave them at home.? Please take a shower or bath the night before, or the morning of, surgery with an antibacterial soap.? Wear comfortable, loose fitting clothing.? - Jewelry must be removed prior to entering the operating room.? Rings and piercings that are not removed may be cut off. - The hospital will not accept responsibility for valuables.? - Please leave all valuables, including medications, at home the day of surgery. If you are going home after surgery, a licensed rickshaw driver must drive you home.? - NO public transportation without another adult if you receive anesthesia. - We recommend that an adult stay with you for 24 hours following discharge. - We also recommend that you do not drive, make important decision, drink alcoholic beverages, or take any drugs that were not prescribed by your health care provider for at least 24 hours after your discharge time. Follow any additional instructions given to you from your surgeon. Telephone instructions given to __Bakari___and asked if any additional questions and then verbalized understanding. Patient advised to call surgeon office or pre surgery nurse liaison [phone] if any additional questions.
--- OUTSIDE RECORDS SUMMARY | 2024-04-01 01:04 | XMS_ITS | Clinical Summary ---
Author Organization [facility] Address [address] [place] [id number] Phone Care Team Providers Care Regional Guide Name Role Phone Jessie Dickson MD Primary Care Provider [phone] Allergies Active Allergy Reactions Criticality Noted Date Comments Metronidazole Medium 04/21/2017 Other reaction(s): Skin Reactions Other reaction(s): Hives Other reaction(s): Skin Reactions Other reaction(s): Skin Reactions Other reaction(s): Hives Other reaction(s): Hives Other reaction(s): Skin Reactions Other reaction(s): Hives Omeprazole Medium 04/21/2017 Other reaction(s): Skin Reactions Other reaction(s): Hives Other reaction(s): Skin Reactions Other reaction(s): Skin Reactions Other reaction(s): Hives Other reaction(s): Hives Other reaction(s): Skin Reactions Other reaction(s): Hives Medications Medication Sig Dispensed Refills Start Date End Date Status Glucose Blood (BLOOD GLUCOSE TEST) strip 1 strip. 11/10/2017 Activ e insulin aspart (NovoLOG) 100 UNIT/ML injection 150-200=2 unit;201-250=4 units;251-300=6 units;301-350=8 units;351-400=10 units;>400=12 units Reasons: Type 2 Diabetes 05/28/2018 Active Lancets (FREESTYLE) lancets 11/06/2016 Active liraglutide (VICTOZA) 18 MG/3ML injection Inject 0.6 mg under the skin. 05/29/2018 Active metFORMIN (GLUCOPHAGE) 500 MG tablet TK 1 T PO BID TK WF 0 05/20/2018 Active Vitamins/Minerals tablet Take 1 tablet by mouth. Active Polyvinyl Alcohol 1.4 % solution Administer 1 drop into affected eye(s) 3 times daily. 05/28/2018 Active ergocalciferol (VITAMIN D2) 53851 units capsule TK 1 C PO Q 7 DAYS 11 10/08/2018 Act javier hydrALAZINE (APRESOLINE) 25 MG tablet TK 1 T PO BID 9 10/08/2018 Active hydroxychloroquine (PLAQUENIL) 200 MG tablet TK 1 T PO QD 3 10/19/2018 Active BASAGLAR KWIKPEN 100 UNIT/ML injection INJECT 20 UNITS UNDER THE SKIN QHS 3 10/16/2018 Active Insulin Lispro, 1 Unit Dial, (HumaLOG KWIKPEN) 100 UNIT/ML solution pen-injector < 150 take 5 units / > 150 unit 7 units / > 200 10 units with meals 06/09/2018 Active amLODIPine (NORVASC) 10 MG tablet TK 1 T PO QD 30 tablet 11 09/27/2019 Active HYDROcodone-acetamin ophen (NORCO) 5-325 MG per tablet TK 1 T PO Q 6 H PRF PAIN 10/24/2019 Active naproxen (NAPROSYN) 500 MG tablet TK 1 T PO BID PRF PAIN 10/24/2019 Active insulin NPH-insulin regular (NovoLIN) (70-30) 100 UNIT/ML injection Inject under the skin Active Blood Glucose Monitoring Suppl (EyeJot Verio Flex System) w/Device kit USE DIRECTED FOUR TIMES DAILY FOR BLOOD SUGAR TESTING 03/02/2020 Active carvedilol (COREG) 12.5 MG tablet Take 12.5 mg by mouth every 12 (twelve) hours 03/02/2020 Active BD Pen Needle Alyson 2nd Gen 32G X 4 MM misc 4 (four) times a day as directed 03/02/2020 Active Insulin Syringe 31G X 5/16 0.5 ML misc USE DIRECTED WITH INSULIN FOUR TIMES DAILY 03/02/2020 Active sodium bicarbonate 650 MG tablet Take 1 tablet (650 mg total) by mouth 2 (two) times a day 60 tablet 6 04/18/2020 Active rOPINIRole (REQUIP) 0.25 MG tablet TAKE 1 TABLET BY MOUTH AT BEDTIME 30 tablet 1 02/11/2022 Active Active Problems Problem Noted Date Diagnosed Date 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 Hypertensive disorder 05/31/2018 Acute retrobulbar neuritis 05/24/2018 Blurring of visual image 05/24/2018 Visual disturbance 06/12/2015 Diabetic retinopathy associa graeme with type 2 diabetes mellitus 06/12/2015 Hyperlipidemia 06/29/2014 Primary osteoarthritis of left knee 06/29/2014 Vitamin D deficiency 09/17/2012 Type 2 diabetes mellitus 06/21/2010 Immunizations Name Administration Dates Next Due Pneumococcal Conjugate 03/03/2018 Family History Medical History Relation Comments Hypertension Father Diabetes Mother Relation Status Comments Father Mother Social History Tobacco Use Types Packs/Day Years Used Date Smoking Tobacco: Never Smokeless Tobacco: Never Alcohol Use Standard Drinks/Week Comments No 0 (1 standard drink = 0.6 oz pur e alcohol) AUDIT-C Answer Date Recorded Frequency of Alcohol Consumption Never 06/01/2018 Average Number of Drinks Not on file 019 Frequency of Binge Drinking Not on file 10/2018 Sex and Gender Information Value Date Recorded Sex Assigned at Not on file Gender Identity Not on file Sexual Orientation Not on file Last Filed Vital Signs Vital Sign Reading Time Taken Comments Blood Pressure 160/88 07/30/2020 3:08 PM CDT Pulse - - Temperature 36.1 C (97 F) 07/30/2020 3:08 PM CDT Respiratory Rate 18 07/30/2020 3:08 PM CDT Oxygen Saturation - - Inhaled Oxygen Concentration - - Weight 108 kg (238 lb) 07/30/2020 3:08 PM CDT Height 160 cm (5' 3 ) 07/30/2020 3:08 PM CDT Body Mass Index 42.16 07/30/2020 3:08 PM CDT Plan of Treatment Health Maintenance Due Date Last Done Comments Influenza Vaccine (#1) 2023 Care Teams Regional Guide Relationship Specialty Start Date End Date Jessie Dickson MD [address] [place] [id number] PCP - General 05/31/18
--- OUTSIDE RECORDS SUMMARY | 2024-04-01 01:04 | XMS_ITS | Referral Summary ---
Author Organization [facility] Address [address] [place] [address] Care Team Providers Care Customer Engineering Specialist Name Role Phone Jessie Dickson SVP OF DIGITAL-API DEVELOPER Primary Care Pro vider Source Comments [facility],non-owned Affiliates and Associated Physician Practices is amultiple site organization consisting of ambulatory clinics and hospital sitesin [place], [place], [place] and [place]. This disclosure is being madepursuant to the Care Everywhere program and may not contain all information available regarding this patient. Last updated 17.[facility] Allergies Active Allergy Reactions Criticality Noted Date Comments Metronidazole Skin Reactions Medium 04/21/2017 Other reaction(s): Hives Omeprazole Skin Reactions Medium 04/21/2017 Other reaction(s): Hives Medications * Be aware that medications may not be up to date on this document. Alwaysverify current medications with the patient. Medication Sig Dispensed Refills Start Date End Date Status FREESTYLE LANCETS MISC Use BID. 100 3 11/06/2016 Active Blood Glucose Monitoring Suppl (FREESTYLE FREEDOM LITE) W/DEVICE KIT Use 1 kit BID. 1 kit 0 10/30/2015 Active insulin syringe-needle (BD ULTRAFINE) 29G X 1/2 0.5 ML syringe 05/06/2014 Active insulin lispro (HUMALOG;ADMELOG) 100 UNIT/ML penIndications: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, with long-term current use of insulin, unspecified laterality (HCC) < 150 take 5 units / > 150 unit 7 units / > 200 10 units with meals 5 Pen 3 06/09/2018 Active pen needles 5/16 30G X 8 MM 30G X 8 MMIndications: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, with long-term current use of insulin, unspecified laterality (HCC) Use 4 times daily - before meals & nightly 200 Each 11 06/09/2018 Active ergocalciferol (DRISDOL) 61768 units capsule Take 1 capsule by mouth every 7 days 4 capsule 11 07/26/2018 Active BASAGLAR KWIKPEN (BASAGLAR) penIndications: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, with long-term current use of insulin, unspecified laterality (HCC) Inject 20 Units subcutaneously at bedtime 5 Pen 3 08/02/2018 Active Additional Information Patient not taking.Reported on 02/05/2022 amLODIPine (NORVASC) 10 MG tablet Take 10 mg by mouth once daily 0 10/08/2018 Active hydroxychloroquine (PLAQUENIL) 200 MG tablet Take 1 tablet by mouth once daily 90 tablet 3 10/19/2018 Active Additional Information Patient not taking.Reported on 03/08/2019 blood glucose test strip Use 1 strip 3 times daily Dispense generic test strip - check blood sugar twice a day 100 strip 3 11/01/2018 Active insulin isophane & Reg, human, 70/30 (HUMULIN;NOVOLIN 70/30) pen Inject subcutaneously 3 times daily Sliding scale TID Active Insulin Glargine (LANTUS SC) Inject 20 Units subcutaneously at bedtime Active hydrALAZINE (APRESOLINE) 100 MG tablet Take 1 (one) tablet by mouth 2 times daily 03/17/2021 Active lisinopril (PRINIVIL; ZESTRIL) 20 MG tablet Take 1 (one) tablet by mouth 2 times daily 03/17/2021 Active labetalol (Normodyne; Trandate) 200 MG tablet Take 1 (one) tablet by mouth every 12 hours Active ALPRAZolam (Xanax) 0.25 MG tablet Take 1 (one) tablet by mouth as needed for Anxiety (Take 1 the morning of procedure) 2 tablet 01/21/2022 Active HYDROcodone-acetamino phen (Kildare) 5-325 MG tablet Take 1 (one) tablet by mouth every 6 hours as needed for Pain 12 tablet 02/05/2022 Active Active Problems Problem Noted Date Diagnosed Date 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 Hypertensive disorder 05/31/2018 Acute retrobulbar neuritis 05/24/2018 Blurry vision 05/24/2018 Severe nonproliferative diab etic retinopathy without macular edema associated with type 2 diabetes mellitus 06/12/2015 Visual disturbance 06/12/2015 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 12/07/2014 Hyperlipidemia 06/29/2014 Primary osteoarthritis of left knee 06/29/2014 Vitamin D deficiency 09/17/2012 Type 2 diabetes mellitus 06/21/2010 Social History Tobacco Use Types Packs/Day Years Used Date Smoking Tobacco: Never Smokeless Tobacco: Never Alcohol Use Standard Drinks/Week Comments Yes 0 (1 standard drink = 0.6 oz pur e alcohol) socially. Sex and Gender Information Value Date Recorded Sex Assigned at Not on file Gender Identity Not on file Sexual Orientation Not on file Last Filed Vital Signs Vital Sign Reading Time Taken Comments Blood Pressure 145/85 02/05/2022 12:[address] irizarry aware; ok to d/cv Pulse 74 02/05/2022 11:55 AM SANDSTONE SPLITTER Temperature 36.8 C (98.2 F) 09/13/2019 8:22 AM CDT Respiratory Rate 12 02/05/2022 11:5 0 AM SANDSTONE SPLITTER Oxygen Saturation 100% 02/05/2022 11: 55 AM SANDSTONE SPLITTER Inhaled Oxygen Concentration - - Weight 108.9 kg (240 lb) 09/13/2019 8:2 2 AM CDT Height 160 cm (5' 3 ) 09/13/2019 8:22 AM CDT Body Mass Index 42.51 09/13/2019 8:22 AM CDT Functional Status Functional Status Response Date of Assess ment Is person deaf or have serious hearing difficult y? No 05/25/2018 Is person blind or have serious difficulty seein g? Yes 05/25/2018 Does person have serious dif ficulty walking/climbing stairs? No 05/25/2018 Does person have difficulty dressing/bathing? No 05/25/2018 Does person have difficulty doing errands alone? No 05/25/2018 Cognitive Status Response Date of Assessm ent Does person have difficulty concentrating/remembering/making decisions? No 05/25/2018 Plan of Treatment Not on file Procedures Procedure Name Priority Date/Time Associated Diagnosis Comments HEMOGLOBIN A1C - POINT OF CARE (AMB) [facility] Routine 11/01/2018 10:11 AM CDT 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, with long-term current use of insulin, unspecified laterality (HCC) HEPATITIS C AB SCREEN RFLX NAAT QUANT Routine 05/28/2018 12:13 PM CDT HIV-1 HIV-2 ANTIGEN/ANTIBODY STAT 05/24/2018 5:08 PM CDT from Last 3 Months or Most Recently Relevant to Health Maintenance Results * HEMOGLOBIN A1C - POINT OF CARE (AMB) [facility] (11/01/2018 10:11 AM CDT) Hemoglobin A1c POCT 8.5% BLOOD SPECIMEN / Unknown 11/01/2018 10:11 AM CDT Tessie Pritchard APRN-JANET LAB - POINT O F CARE ORDERABLES * HEPATITIS C AB SCREEN RFLX NAAT QUANT (05/28/2018 12:13 PM CDT) Hepatitis C Antibody Non-react javier Non-reac tive 05/28/2018 1:18 PM CDT [facility] Comment: Hepatitis C Antibody screen indicates no serologic evidence of past or current infection with Hepatitis C Virus. Patients with unexplained liver disease who are immunocompromised or suspected of having acute Hepatitis C infection may benefit from Nucleic Acid Test (RANDALL) for Hepatitis C Viral RNA to confirm Hepatitis C status. Blood BLOOD SPECIMEN / Unknown Lab Venipuncture / Unknown 05/28/2018 12:13 PM CDT 05/28/2018 12:35 PM CDT Es Thornton MD LAB - CHEMISTRY [facility] [address] [phone] * HIV-1 HIV-2 ANTIGEN/ANTIBODY (05/24/2018 5:08 PM CDT) HIV Antigen/Antibod y 1 & 2 Non-reacti ve Non-react javier 05/24/2018 5:54 PM CDT [facility] Comment: Neither HIV-1 p24 Antigen nor HIV-1/HIV-2 Antibodies are detected. Blood BLOOD SPECIMEN / Unknown Venipuncture / Unknown 05/24/2018 5:08 PM CDT 05/24/2018 5:16 PM CDT Namita Raymond MD LAB - HEMATOLOGY ORD ERABLES [facility] [address] [phone] from Last 3 Months or Most Recently Relevant to Health Maintenance Advance Directives * Full Code (Latest Code Status on File) Date Activated Date Inactivated Comments 05/25/2018 12:57 AM 05/28/2018 5:22 PM * Full Code Date Activated Date Inactivated Comments 05/24/2018 6:24 PM 05/25/2018 12:57 AM Care Teams Customer Engineering Specialist Relationship Specialty Start Date End Date Jessie Dickson APRN-JANET [address] [id number] PCP - General 06/30/14
--- OUTSIDE RECORDS SUMMARY | 2024-04-01 01:04 | XMS_ITS | Patient Health Summary ---
Author Organization [facility] Address [address] [place] [address] Care Team Providers Care Costume Rental Clerk Name Role Phone Jessie Dickson FINANCIAL UNDERWRITER-OFFICE SERVICES CLERK Primary Care Pro vider Note from [facility],non-owned Affiliates and Associated Physician Practices is amultiple site organization consisting of ambulatory clinics and hospital sitesin [place], [place], [place] and [place]. This disclosure is being madepursuant to the Care Everywhere program and may not contain all information available regarding this patient. Last updated 17.[facility] Allergies * Metronidazole(Skin Reactions) -Medium Criticality * Omeprazole(Skin Reactions) -Medium Criticality Medications * Be aware that medications may not be up to date on this document. Alwaysverify current medications with the patient. * FREESTYLE LANCETS MISC(Started 11/06/2016) Use BID. 3 refills left * Blood Glucose Monitoring Suppl (FREESTYLE FREEDOM LITE) W/DEVICE KIT(Started 10/30/2015) Use 1 kit BID. * insulin syringe-needle (BD ULTRAFINE) 29G X 1/2 0.5 ML syringe(Started 05/06/2014) * insulin lispro (HUMALOG;ADMELOG) 100 UNIT/ML pen(Started 06/09/2018) < 150 take 5 units / > 150 unit 7 units / > 200 10 units with meals 3 refills remaining * pen needles 07/08 30G X 8 MM 30G X 8 MM(Started 06/09/2018) Use 4 times daily - before meals & nightly 11 refills remaining * ergocalciferol (DRISDOL) 82875 units capsule(Started 07/26/2018) Take 1 capsule by mouth every 7 days 11 refills remaining * BASAGLAR KWIKPEN (BASAGLAR) pen(Started 08/02/2018) Inject 20 Units subcutaneously at bedtime 3 refills remaining * amLODIPine (NORVASC) 10 MG tablet(Started 10/08/2018) Take 10 mg by mouth once daily * hydroxychloroquine (PLAQUENIL) 200 MG tablet(Started 10/19/2018) Take 1 tablet by mouth once daily 3 refills remaining * blood glucose test strip(Started 11/01/2018) Use 1 strip 3 times daily Dispense generic test strip - check blood sugar twice a day 3 refills remaining * insulin isophane & Reg, human, 70/30 (HUMULIN;NOVOLIN 70/30) pen Inject subcutaneously 3 times daily Sliding scale TID * Insulin Glargine (LANTUS SC) Inject 20 Units subcutaneously at bedtime * hydrALAZINE (APRESOLINE) 100 MG tablet(Started 03/17/2021) Take 1 (one) tablet by mouth 2 times daily * lisinopril (PRINIVIL; ZESTRIL) 20 MG tablet(Started 03/17/2021) Take 1 (one) tablet by mouth 2 times daily * labetalol (Normodyne; Trandate) 200 MG tablet Take 1 (one) tablet by mouth every 12 hours * ALPRAZolam (Xanax) 0.25 MG tablet(Started 01/21/2022) Take 1 (one) tablet by mouth as needed for Anxiety (Take 1 the morning of procedure) * HYDROcodone-acetaminophen ([place]) 5-325 MG tablet(Started 02/05/2022) Take 1 (one) tablet by mouth every 6 hours as needed for Pain Active Problems Problem Noted Date Diagnosed Date [...] Comments Blood Pressure 145/85 02/05/2022 12:[address] garcia aware; ok to d/cv Pulse 74 02/05/2022 11:55 AM ZONING ADMINISTRATOR Temperature 36.8 C (98.2 F) 09/13/2019 8:22 AM CDT Respiratory Rate 12 02/05/2022 11:5 0 AM ZONING ADMINISTRATOR Oxygen Saturation 100% 02/05/2022 11: 55 AM ZONING ADMINISTRATOR Inhaled Oxygen Concentration - - Weight 108.9 kg (240 lb) 09/13/2019 8:2 2 AM CDT Height 160 cm (5' 3 ) 09/13/2019 8:22 AM CDT Body Mass Index 42.51 09/13/2019 8:22 AM CDT Procedures * US AV HEMODIALYSIS ACCESS(Performed 02/19/2022) Performed for End stage renal disease ([facility]) * IR AV FISTULA CREATION(Performed 02/05/2022) Performed for End stage renal disease ([facility]) * CBC W/O DIFFERENTIAL(Performed 01/21/2022) Performed for ESRD (end stage renal disease) ([facility]) * PT-INR(Performed 01/21/2022) Performed for ESRD (end stage renal disease) ([facility]) * PTT(Performed 01/21/2022) Performed for ESRD (end stage renal disease) ([facility]) * VAS RIGHT MAPPING FOR HEMODIALYSIS(Performed 01/09/2022) Performed for End stage renal disease ([facility]) * IR CENTRAL LINE REMOVAL(Performed 05/08/2021) Performed for End stage renal disease ([facility]) * IR CENTRAL LINE INSERT TUNNEL(Performed 04/17/2021) Performed for End stage renal disease (HCC) * URINALYSIS REFLEX TO MICROSCOPIC NO CULTURE(Performed 09/13/2019) Performed for Positive JAYA (antinuclear antibody), Abnormal laboratory test result, Drug-induced lupus erythematosus * JAYA BLOOD SINGLE PATTERN(Performed 09/13/2019) Performed for Positive JAYA (antinuclear antibody), Abnormal laboratory test result, Drug-induced lupus erythematosus * DNA ANTIBODY DS CRITHIDIA TITER(Performed 09/13/2019) Performed for Positive JAYA (antinuclear antibody), Abnormal laboratory test result, Drug-induced lupus erythematosus * LEGGETT/JOB BOSS (MOHSEN) ANTIBODY IGG(Performed 09/13/2019) Performed for Positive JAYA (antinuclear antibody), Abnormal laboratory test result, Drug-induced lupus erythematosus * SS-A (SJOGREN'S) 52+60 ANTIBODIES(Performed 09/13/2019) Performed for Positive JAYA (antinuclear antibody), Abnormal laboratory test result, Drug-induced lupus erythematosus * CHROMATIN ANTIBODY(Performed 09/13/2019) Performed for Positive JAYA (antinuclear antibody), Abnormal laboratory test result, Drug-induced lupus erythematosus * CBC W AUTO DIFFERENTIAL(Performed 09/13/2019) Performed for Positive JAYA (antinuclear antibody), Abnormal laboratory test result, Drug-induced lupus erythematosus * COMPREHENSIVE METABOLIC PANEL(Performed 09/13/2019) Performed for Positive JAYA (antinuclear antibody), Abnormal laboratory test result, Drug-induced lupus erythematosus * C-REACTIVE PROTEIN(Performed 09/13/2019) Performed for Positive JAYA (antinuclear antibody), Abnormal laboratory test result, Drug-induced lupus erythematosus * ERYTHROCYTE SEDIMENTATION RATE(Performed 09/13/2019) Performed for Positive JAYA (antinuclear antibody), Abnormal laboratory test result, Drug-induced lupus erythematosus * JAYA BLOOD SCREEN W/REFLEX TITER(Performed 09/13/2019) Performed for Positive JAYA (antinuclear antibody), Abnormal laboratory test result, Drug-induced lupus erythematosus * HISTONE ANTIBODY(Performed 09/13/2019) Performed for Positive JAYA (antinuclear antibody), Abnormal laboratory test result, Drug-induced lupus erythematosus * LEGGETT (SM) ANTIBODY MOHSEN(Performed 09/13/2019) Performed for Positive JAYA (antinuclear antibody), Abnormal laboratory test result, Drug-induced lupus erythematosus * SS-B (SJOGREN'S) ANTIBODY(Performed 09/13/2019) Performed for Positive JAYA (antinuclear antibody), Abnormal laboratory test result, Drug-induced lupus erythematosus * OPH VISUAL FIELD TEST SLU(Performed 11/04/2018) Performed for Optic neuritis * OPH OCT TEST SLU(Performed 11/04/2018) Performed for Optic neuritis * HEMOGLOBIN A1C - POINT OF CARE (AMB) SLU(Performed 11/01/2018) Performed for 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, with long-term current use of insulin, unspecified laterality (HCC) * OPH VISUAL FIELD TEST SLU(Performed 09/21/2018) Performed for Optic neuritis, retrobulbar (acute), right * OPH OCT TEST SLU(Performed 09/21/2018) Performed for Optic neuritis, retrobulbar (acute), right * URINALYSIS REFLEX TO MICROSCOPIC NO CULTURE(Performed 09/01/2018) Performed for Abnormal laboratory test result, Positive JAYA (antinuclear antibody), Optic neuritis * MELISSA STAINING PATTERNS REFLEXED(Performed 09/01/2018) Performed for Abnormal laboratory test result, Positive JAYA (antinuclear antibody), Optic neuritis * MPO/ND 3 AUTOANTIBODIES PANEL(Performed 09/01/2018) Performed for Abnormal laboratory test result, Positive JAYA (antinuclear antibody), Optic neuritis * CBC W AUTO DIFFERENTIAL(Performed 09/01/2018) Performed for Abnormal laboratory test result, Positive JAYA (antinuclear antibody), Optic neuritis * COMPREHENSIVE METABOLIC PANEL(Performed 09/01/2018) Performed for Abnormal laboratory test result, Positive JAYA (antinuclear antibody), Optic neuritis * C-REACTIVE PROTEIN(Performed 09/01/2018) Performed for Abnormal laboratory test result, Positive JAYA (antinuclear antibody), Optic neuritis * ERYTHROCYTE SEDIMENTATION RATE(Performed 09/01/2018) Performed for Abnormal laboratory test result, Positive JAYA (antinuclear antibody), Optic neuritis * TSH(Performed 09/01/2018) Performed for Abnormal laboratory test result, Positive JAYA (antinuclear antibody), Optic neuritis * T4 FREE(Performed 09/01/2018) Performed for Abnormal laboratory test result, Positive JAYA (antinuclear antibody), Optic neuritis * THYROID PEROXIDASE ANTIBODY(Performed 09/01/2018) Performed for Abnormal laboratory test result, Positive JAYA (antinuclear antibody), Optic neuritis * THYROGLOBULIN ANTIBODY(Performed 09/01/2018) Performed for Abnormal laboratory test result, Positive JAYA (antinuclear antibody), Optic neuritis * DNA ANTIBODY DS CRITHIDIA TITER(Performed 09/01/2018) Performed for Abnormal laboratory test result, Positive JAYA (antinuclear antibody), Optic neuritis * CHROMATIN ANTIBODY(Performed 09/01/2018) Performed for Abnormal laboratory test result, Positive JAYA (antinuclear antibody), Optic neuritis * HISTONE ANTIBODY(Performed 09/01/2018) Performed for Abnormal laboratory test result, Positive JAYA (antinuclear antibody), Optic neuritis * LEGGETT (SM) ANTIBODY MOHSEN(Performed 09/01/2018) Performed for Abnormal laboratory test result, Positive JAYA (antinuclear antibody), Optic neuritis * JOB BOSS ANTIBODY(Performed 09/01/2018) Performed for Abnormal laboratory test result, Positive JAYA (antinuclear antibody), Optic neuritis * SS-A (SJOGREN'S) ANTIBODY(Performed 09/01/2018) Performed for Abnormal laboratory test result, Positive JAYA (antinuclear antibody), Optic neuritis * SS-B (SJOGREN'S) ANTIBODY(Performed 09/01/2018) Performed for Abnormal laboratory test result, Positive JAYA (antinuclear antibody), Optic neuritis * RHEUMATOID FACTOR BLOOD QUANTITATIVE(Performed 09/01/2018) Performed for Abnormal laboratory test result, Positive JAYA (antinuclear antibody), Optic neuritis * CYCLIC CITRUL PEPTIDE ANTIBODY IGG/IGA (CCP)(Performed 09/01/2018) Performed for Abnormal laboratory test result, Positive JAYA (antinuclear antibody), Optic neuritis * JAYA BLOOD SCREEN W/REFLEX TITER(Performed 09/01/2018) Performed for Abnormal laboratory test result, Positive JAYA (antinuclear antibody), Optic neuritis * HEMOGLOBIN A1C - POINT OF CARE (AMB) SLU(Performed 07/26/2018) 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) * OPH OCT TEST SLU(Performed 06/08/2018) Performed for Optic neuritis * VITAMIN D 25-HYDROXY(Performed 06/07/2018) * MICROALB/CREAT RATIO URINE RANDOM PANEL(Performed 06/07/2018) * BASIC METABOLIC PANEL (CALCIUM TOTAL)(Performed 06/07/2018) * JOB BOSS ANTIBODY(Performed 05/28/2018) * LEGGETT (SM) ANTIBODY MOHSEN(Performed 05/28/2018) * DNA ANTIBODY DOUBLE STRANDED(Performed 05/28/2018) * GLUCOSE - POINT OF CARE(Performed 05/28/2018) * CRYOGLOBULIN QUANTITATIVE(Performed 05/28/2018) * C-REACTIVE PROTEIN(Performed 05/28/2018) * HEPATITIS C AB SCREEN RFLX NAAT QUANT(Performed 05/28/2018) * HEPATITIS B SURFACE ANTIGEN W RFLX CONFIRMATION(Performed 05/28/2018) * MPO/ND 3 AUTOANTIBODIES PANEL(Performed 05/28/2018) * ANTI-NEUTROPHIL CYTOPLASMIC ANTIBODY IGG(Performed 05/28/2018) * COMPLEMENT TOTAL(Performed 05/28/2018) * HISTONE ANTIBODY(Performed 05/28/2018) * SCLERODERMA 70 (SCL) ANTIBODY(Performed 05/28/2018) * SS-B (SJOGREN'S) ANTIBODY(Performed 05/28/2018) * SS-A (SJOGREN'S) ANTIBODY(Performed 05/28/2018) * MELISSA STAINING PATTERNS REFLEXED(Performed 05/28/2018) * ERYTHROCYTE SEDIMENTATION RATE(Performed 05/28/2018) * ANGIOTENSIN CONVERTING ENZYME BLOOD(Performed 05/28/2018) * COMPLEMENT C4(Performed 05/28/2018) * COMPLEMENT C3(Performed 05/28/2018) * CHROMATIN ANTIBODY(Performed 05/28/2018) * JAYA BLOOD SCREEN W/REFLEX TITER(Performed 05/28/2018) * PTH INTACT W/O CALCIUM(Performed 05/28/2018) * GLUCOSE - POINT OF CARE(Performed 05/28/2018) * BASIC METABOLIC PANEL (CALCIUM TOTAL)(Performed 05/28/2018) * GLUCOSE - POINT OF CARE(Performed 05/28/2018) * GLUCOSE - POINT OF CARE(Performed 05/27/2018) * GLUCOSE - POINT OF CARE(Performed 05/27/2018) * GLUCOSE - POINT OF CARE(Performed 05/27/2018) * GLUCOSE - POINT OF CARE(Performed 05/27/2018) * BASIC METABOLIC PANEL (CALCIUM TOTAL)(Performed 05/27/2018) * GLUCOSE - POINT OF CARE(Performed 05/27/2018) * GLUCOSE - POINT OF CARE(Performed 05/26/2018) * GLUCOSE - POINT OF CARE(Performed 05/26/2018) * US RETROPERITONEAL COMPLETE(Performed 05/26/2018) Performed for ROSHNI (acute kidney injury) * GLUCOSE - POINT OF CARE(Performed 05/26/2018) * URINALYSIS REFLEX TO MICROSCOPIC NO CULTURE(Performed 05/26/2018) * UREA NITROGEN URINE RANDOM(Performed 05/26/2018) * CREATININE URINE RANDOM(Performed 05/26/2018) * SODIUM URINE RANDOM(Performed 05/26/2018) * GLUCOSE - POINT OF CARE(Performed 05/26/2018) * GLUCOSE - POINT OF CARE(Performed 05/26/2018) * GLUCOSE - POINT OF CARE(Performed 05/26/2018) * GLUCOSE - POINT OF CARE(Performed 05/26/2018) * GLUCOSE - POINT OF CARE(Performed 05/25/2018) * MAGNESIUM BLOOD(Performed 05/25/2018) * BASIC METABOLIC PANEL (CALCIUM TOTAL)(Performed 05/25/2018) * GLUCOSE - POINT OF CARE(Performed 05/25/2018) * GLUCOSE - POINT OF CARE(Performed 05/25/2018) * GLUCOSE - POINT OF CARE(Performed 05/25/2018) * FLOW CYTOMETRY BODY FLUID(Performed 05/25/2018) Performed for Blurry vision * GLUCOSE - POINT OF CARE(Performed 05/25/2018) * PATHOLOGY SMEAR BODY FLUID(Performed 05/25/2018) * DIFFERENTIAL MANUAL FLUID(Performed 05/25/2018) * NEUROMYELITIS OPTICA AQP4 IGG CSF W/RFLX(Performed 05/25/2018) * MYELIN BASIC PROTEIN CSF(Performed 05/25/2018) * ANGIOTENSIN CONVERTING ENZYME CSF(Performed 05/25/2018) * CELL COUNT W DIFFERENTIAL CSF(Performed 05/25/2018) * PROTEIN CSF(Performed 05/25/2018) * GLUCOSE CSF(Performed 05/25/2018) * GRAM STAIN (LAB ORDERED)(Performed 05/25/2018) * CULTURE CSF+GRAM STAIN(Performed 05/25/2018) * HERPES SIMPLEX 1+2 PCR CSF(Performed 05/25/2018) * CULTURE CSF+GRAM STAIN (BEAKER)(Performed 05/25/2018) * GLUCOSE - POINT OF CARE(Performed 05/25/2018) * GLUCOSE - POINT OF CARE(Performed 05/25/2018) * CBC W/O DIFFERENTIAL(Performed 05/25/2018) * MAGNESIUM BLOOD(Performed 05/25/2018) * BASIC METABOLIC PANEL (CALCIUM TOTAL)(Performed 05/25/2018) * HCG BETA BLOOD QUANTITATIVE(Performed 05/25/2018) * SYPHILIS ANTIBODY CASCADING REFLEX(Performed 05/25/2018) * NEUROMYELITIS OPTICA ANTIBODY(Performed 05/25/2018) * ANTI-NEUTROPHIL CYTOPLASMIC ANTIBODY IGG(Performed 05/25/2018) * GLUCOSE - POINT OF CARE(Performed 05/25/2018) * GLUCOSE - POINT OF CARE(Performed 05/24/2018) * MRI ORBITS OR FACE WWO CONTRAST(Performed 05/24/2018) Performed for Blurry vision * MRI BRAIN WWO CONTRAST(Performed 05/24/2018) Performed for Blurry vision * MELISSA STAINING PATTERNS REFLEXED(Performed 05/24/2018) * JAYA BLOOD SCREEN W/REFLEX TITER(Performed 05/24/2018) * COMPREHENSIVE METABOLIC PANEL(Performed 05/24/2018) * CBC W AUTO DIFFERENTIAL(Performed 05/24/2018) * C-REACTIVE PROTEIN(Performed 05/24/2018) * ERYTHROCYTE SEDIMENTATION RATE(Performed 05/24/2018) * HIV-1 HIV-2 ANTIGEN/ANTIBODY(Performed 05/24/2018) * OPH VISUAL FIELD TEST SLU(Performed 05/24/2018) Performed for Decreased vision of right eye * HEMOGLOBIN A1C - POINT OF CARE (AMB) SLU(Performed 05/24/2018) Performed for Type 2 diabetes mellitus with other diabetic ophthalmic complication * OPH OCT TEST SLU(Performed 05/24/2018) Performed for Decreased vision of right eye * HEMOGLOBIN A1C - POINT OF CARE (AMB) SLU(Performed 11/10/2017) Performed for Type 2 diabetes mellitus with diabetic nephropathy, unspecified whether group home insulin use (HCC) * HEMOGLOBIN A1C - POINT OF CARE (AMB) SLU(Performed 07/21/2017) Performed for Type 2 diabetes mellitus with other diabetic neurological complication (HCC) * OPH OCT TEST SLU(Performed 06/24/2017) Performed for Blurred vision, bilateral * HEMOGLOBIN A1C - POINT OF CARE (AMB) SLU(Performed 04/21/2017) * HEMOGLOBIN A1C - POINT OF CARE (AMB) SLU(Performed 01/20/2017) * HEMOGLOBIN A1C - POINT OF CARE (AMB) SLU(Performed 11/06/2016) * MICROALBUMIN URINE RANDOM(Performed 10/30/2015) * TSH(Performed 10/30/2015) * LIPID PROFILE(Performed 10/30/2015) * COMPREHENSIVE METABOLIC PANEL(Performed 10/30/2015) * HEMOGLOBIN A1C - POINT OF CARE (AMB) SLU(Performed 10/30/2015) * GLUCOSE - POINT OF CARE (AMB) SLU(Performed 04/10/2015) * GLUCOSE - POINT OF CARE (AMB) SLU(Performed 04/10/2015) * INSULIN ANTIBODY(Performed 09/12/2014) * GLUTAMIC ACID DECARBOXYLASE (HAYLEY) ANTIBODY(Performed 09/12/2014) * C-PEPTIDE(Performed 06/29/2014) * TISSUE TRANSGLUTAMINASE AB IGG(Performed 06/29/2014) * HEMOGLOBIN A1C(Performed 06/29/2014) * VITAMIN B12(Performed 06/29/2014) * ERYTHROCYTE SEDIMENTATION RATE(Performed 06/29/2014) * TSH(Performed 06/29/2014) * VITAMIN D 25-HYDROXY(Performed 06/29/2014) * COMPREHENSIVE METABOLIC PANEL(Performed 06/29/2014) * LIPID PROFILE(Performed 06/29/2014) Results * US AV HEMODIALYSIS ACCESS (02/19/2022 10:00 AM ZONING ADMINISTRATOR) Anatomical Region Laterality Modality Upper Extremity X-Ray Angiograph y Narrative 02/19/2022 12:40 PM ZONING ADMINISTRATOR Elio Garcia MD 02/19/2022 12:50 PM VASCULAR AND INTERVENTIONAL RADIOLOGY EXAMINATION: RIGHT UPPER EXTREMITY ARTERIOVENOUS FISTULA DUPLEX Date: 02/19/2022 History: Bakari Smith is a 41 year old female with history of ESRD who is status post right upper extremity endovascular arteriovenous fistula creation on 02/06/2020. Technique: Limited grayscale, color, and spectral images of the right upper extremity vasculature were obtained for the purposes of endovascular arteriovenous fistula evaluation. Findings: Within the right upper arm, the cephalic vein diameter/depth measurements are 4.8 mm/9.4 mm proximally, 3.3 mm/6 mm within the midportion, and 4.4 mm/3 mm distally. Flow volume within the cephalic outflow vein is no significant blood flow volume. The perforating vein extending from the cephalic vein measures occluded in diameter. The upper arm basilic vein diameter/depth measurements are 4.8 mm/11.8 mm proximally, 3.8 mm/14.6 mm within the midportion, and 5.3 mm/9.1 mm distally. Flow volume within the basilic outflow vein is no significant blood flow volume. The brachial artery diameter within the mid upper arm is 4.3 mm. Flow volume within the brachial artery is 81.7 mL/min. IMPRESSION: Early thrombosis/failure of the right upper arm endovascular av fistula. Elio Garcia M.D. Interventional Nephrology [facility] [phone] CC: MD Dr. Modesto Canchola MD Beth Tripp MD US ORDERABLES * IR AV FISTULA CREATION (02/05/2022 11:55 AM ZONING ADMINISTRATOR) Anatomical Region Laterality Modality X-Ray Angiograph y Narrative 02/05/2022 4:32 PM ZONING ADMINISTRATOR Elio Garcia MD 02/05/2022 5:07 PM Procedure Date: 02/05/2022 Attending Surgeon and performing the procedure: Elio Garcia MD Outside Medical Sales Representative: Nohemy Martinez RN Medical indication for the procedure: The patient is a 41-year-old woman with end-stage renal disease on peritoneal dialysis referred for attempted placement of an endovascular AV fistula right upper extremity. Vascular mapping shows that the patient meets criteria for an autologous AV fistula in the upper arm. EXAM: BP 137/76 Pulse 80 SpO2 100% General appearance: alert, cooperative, no distress Heart: Regular rate, normal S1 and S2, without murmurs Lungs: breath sounds normal and symmetric; no wheezes Extremities: no cyanosis or edema. Radial and ulnar pulse are present. Indications for the procedure: 1. End-stage renal disease on dialysis. Procedures Performed: 1. ENDOVASCULAR AV FISTULA CREATION USING THE [employer]; G2171 2. MODERATE CONSCIOUS SEDATION INITIAL 15 MIN; [id number] 3. MODERATE CONSCIOUS SEDATION ADDITIONAL 15 MIN; 13580 Findings: 1. The right medial brachial vein was cannulated with a 21 gauge micropuncture needle using ultrasound guidance for vascular access. The needle tip was observed entering the lumen of the vein real-time and permanent recording was obtained. 2. The lateral ulnar vein was selectively catheterized. An angiogram performed showed the lateral ulnar vein draining directly into a short appeals reviewer veteran attack communicates with the radial veins and into the cephalic vein. There appears to be no stenosis along the cephalic vein. 3. The right brachial artery was selectively cannulated without 21 gauge micropuncture needle using ultrasound guidance for vascular access. The needle tip was observed entering the lumen of the vein in real-time and permanent recording was obtained. 4. The arteriogram showed that the brachial artery is widely patent without stenosis. The common ulnar splits into the interosseous and the proper ulnar artery both without filling defects. The radial artery is large in caliber is without any filling defects. 5. An attempt to aligned the arterial and venous electrode along the lateral common ulnar due to distance failed. The radial artery and vein were selectively catheterized and the electrode off the venous catheter and the ceramic back stop of the arterial catheter were lined up at an angle of 55 caudal cephalic. A 60 W RF current was applied 4.7 seconds and contact between the venous electrode and ceramic back stop was confirmed using real-time fluoroscopy. 6. A brisk and patent proximal radial artery to radial vein AV fistula he is observed arteriogram the with drainage directly into the perforating vein and the upper arm cephalic vein. A there is contrast washout into the medial brachial vein. 7. Following deployment of the two 6 mm x 14 cm Alejo embolization coils within the medial brachial vein resistance to flow into the medial brachial vein was observed with predominant contrast washout through the appeals reviewer veteran to the superficial vessels. DESCRIPTION OF THE PROCEDURE: After informed consent was obtained the patient was taken to the angiography suite and placed on the fluoroscopy table in the supine position. Prior to beginning the procedure, universal protocol was performed to confirm the patient's identity and the planned procedure. Maximum sterile barriers including cap, mask, hand hygiene, sterile gloves, sterile gown, large sterile drape, sterile gel, sterile ultrasound probe cover, and 2% chlorhexidine for cutaneous antisepsis were used. The entire right upper extremity was sterilely prepped and draped. Prior to the procedure, the right medial brachial vein was evaluated by ultrasound and an image of the patent vessel was recorded in the patient's electronic medical record. The skin over this vein was infiltrated with 1% lidocaine. This vein was then accessed with a 21-gauge needle using real-time ultrasound guidance. A V- 18 guidewire was passed distally using fluoroscopic guidance. Subsequently, a 6 Uzbek vascular sheath was placed. Using a 0.018 V-18 wire, the 4 Uzbek KA2 catheter was navigated to the ulnar vein in the region of the arteriovenous fistula creation target zone and venography performed: 2. The lateral ulnar vein was selectively catheterized. An angiogram performed showed the lateral ulnar vein draining directly into a short appeals reviewer veteran attack communicates with the radial veins and into the cephalic vein. There appears to be no stenosis along the cephalic vein. A the 0.014 in guide wire was exchanged for the 0.018 V - 18 venous guidewire and advanced such that the tip position in the distal distal radial vein. Next, the skin overlying the right brachial artery at the mid to distal upper arm was infiltrated with 1% lidocaine. Using continuous real-time ultrasound guidance, a 21-gauge needle was advanced into the artery. A guidewire was passed distally followed by the placement of a 4 Uzbek catheter. After the 4 Uzbek catheter was placed, a cocktail including 2000 units of heparin was administered intra-arterially. A right upper extremity arteriogram was then obtained. The arteriogram showed: 4. The arteriogram showed that the brachial artery is widely patent without stenosis. The common ulnar splits into the interosseous and the proper ulnar artery both without filling defects. The radial artery is large in caliber is without any filling defects. Subsequently, a 4 Uzbek vascular sheath was placed and connected to a heparinized saline drip. Next, a 0.014 in wire was advanced distal to the common ulnar artery using fluoroscopic guidance. Using C-arm angulation, the widest view was obtained at 55 a degrees caudal cephalic in order to prepare for proper WavelinQ catheter alignment. After the fistula creation zone was identified, the 4+ F WavelinQ arterial and venous catheters were advanced to the target zone and properly aligned. Rotational fluoroscopy confirmed appropriate catheter alignment and RF electrode positioning. Once satisfactory catheter positioning was confirmed, the arterial the guide wire was removed and the venous guide wire was partially withdrawn such that tip of the wire was position proximal to the WavelinQ catheter magnets. With the right upper extremity properly secured, the venous catheter RF electrode was briefly activated and the electrode was seen striking the arterial catheter backstop. The RF electrode was then properly retracted into the catheter and both the venous and arterial catheters were removed. Contrast injection into the 6 Uzbek arterial sheath confirmed arteriovenous fistula creation between the common ulnar artery and adjacent ulnar vein: 5. An attempt to aligned the arterial and venous electrode along the lateral common ulnar due to distance failed. The radial artery and vein were selectively catheterized and the electrode off the venous catheter and the ceramic back stop of the arterial catheter were lined up at an angle of 55 caudal cephalic. A 60 W RF current was applied 4.7 seconds and contact between the venous electrode and ceramic back stop was confirmed using real-time fluoroscopy. 6. A brisk and patent proximal radial artery to radial vein AV fistula he is observed arteriogram the with drainage directly into the perforating vein and the upper arm cephalic vein. A there is contrast washout into the medial brachial vein. To redirect flow to the superficial venous system since the brachial veins are not part of the AV fistula, 4 Uzbek KA2 catheter was advanced over the venous guide wire. With the aid of a 0.035 in Bentson guidewire the 4 Uzbek K a 2 catheter was used to deploy two 6 mm x 14 cm Alejo embolization coil within the brachial vein in order to divert flow into the superficial venous system. Repeat angiography was performed. Showed: 7. Following deployment of the two 6 mm x 14 cm Alejo embolization coils within the medial brachial vein resistance to flow into the medial brachial vein was observed with predominant contrast washout through the appeals reviewer veteran to the superficial vessels. Next, the KA2 catheter and both sheaths were removed, manual pressure was held, and hemostasis was achieved. Sterile dressings were applied. The patient tolerated the procedure well and without complications. Moderate sedation was ordered by me and administer intravenously and monitored by the procedure nurse as an independent observer, who was present throughout the procedure. The following parameters were monitored: Oxygen saturation, heart rate, blood pressure, End Tidal CO2, and response to care. Intra-service sedation start time was 9:45 a.m. and end time was 11:40 a.m.. Total physician intra service sedation time was 115 minutes. The patient tolerated the procedure well with Versed and fentanyl for moderate conscious sedation 1 percent lidocaine for local anesthesia. IV Versed: 3 mg Versed wasted: 0 mg IV Fentanyl: 125 mcg Fentanyl wasted: 0 mcg IV Contrast: 55 mL of Isovue 370 Fluoroscopy time: 28.53 min. Absorbed patient dose: 74.80 mGy. COMPLICATIONS: No. IMPRESSION: Successful creation of a proximal radial artery to radial vein immediately below the perforating vein endovascular AV fistula using the WQ technology at an angle of 55 caudal cephalic. RECOMMENDATIONS: 1. The patient should follow-up with [facility] for ultrasound evaluations at approximately 1, 2, and 4 weeks from the date of procedure. The arteriovenous fistula should not be cannulated until cleared by either Dr. Azevedo or Dr. Garcia. The right arm should not be used for blood pressure measurements or phlebotomy. Dr Elio Garcia M.D. Interventional Nephrology [facility] [phone] Dr. Modesto Tripp MD [facility] Beth Tripp MD IR ORDERABLES * PTT (01/21/2022 9:30 AM ZONING ADMINISTRATOR) PTT 29.6 23.0 - 38.4 sec 01/21/2022 9:58 AM ZONING ADMINISTRATOR [facility] Blood BLOOD SPECIMEN / Unknown Lab Venipuncture / Unknown 01/21/2022 9:30 AM ZONING ADMINISTRATOR 01/21/2022 9:40 AM ZONING ADMINISTRATOR Narrative [facility] - 01/21/2022 9:58 AM ZONING ADMINISTRATOR Heparin Therapeutic Range for PTT: 69.0 - 110.0 seconds. Elio Garcia MD LAB - COAGULATION ORDERABLES [facility] [address] [place] [id number] * PT-INR (01/21/2022 9:30 AM ZONING ADMINISTRATOR) PT 12.6 12.1 - 14.8 sec 01/21/2022 9:58 AM ZONING ADMINISTRATOR [facility] INR 0.9 0.9 - 1.1 01/21/2022 9:58 AM ZONING ADMINISTRATOR [facility] Blood BLOOD SPECIMEN / Unknown Lab Venipuncture / Unknown 01/21/2022 9:30 AM ZONING ADMINISTRATOR 01/21/2022 9:40 AM ZONING ADMINISTRATOR [facility] - 01/21/2022 9:58 AM ZONING ADMINISTRATOR Conventional Warfarin Anticoagulant Therapy: INR Reference Range: 2.0-3.0 Intensive Warfarin Anticoagulant Therapy: INR Reference Range: 2.5-3.5 Elio Garcia MD LAB - COAGULATION ORDERABLES [facility] [address] [place] [id number] * (ABNORMAL) CBC W/O DIFFERENTIAL (01/21/2022 9:30 AM ZONING ADMINISTRATOR) Only the most recent of2 resultswithin the time period is included. WBC 10.4 4.4 - 10.7 x10E9/L 01/21/2022 9:50 AM ZONING ADMINISTRATOR [facility] RBC 3.84 3.80 - 5.20 x10E12/L 01/21/2022 9:50 AM [facility] Hemoglobin 11.0(L) 12.0 - 15.6 gm/dL 01/21/2022 9:50 AM [facility] Hematocrit 34.4(L) 35.9 - 45.5 % 01/21/2022 9:50 AM [facility] MCV 89.6 80.7 - 98.3 fl 01/21/2022 9:50 AM [facility] MCH 28.6 26.7 - 34.0 pg 01/21/2022 9:50 AM [facility] MCHC 32.0 30.8 - 35.9 gm/dL 01/21/2022 9:50 AM [facility] Platelet Count 344 153 - 416 x10E9/L 01/21/2022 9:50 AM [facility] RDW-CV 13.2 12.1 - 14.9 % 01/21/2022 9:50 AM [facility] MPV 9.2(L) 9.4 - 12.9 fl 01/21/2022 9:50 AM [facility] Blood BLOOD SPECIMEN / Unknown Lab Venipuncture / Unknown 01/21/2022 9:30 AM ZONING ADMINISTRATOR 01/21/2022 9:40 AM [facility] Elio Garcia MD LAB - HEMATOLOGY ORDERABLES Performing Organization Address [facility]/State/[facility] Co de Phone Number [facility] [address] [place], [place] [id number] * VAS RIGHT MAPPING FOR HEMODIALYSIS (01/09/2022 10:52 AM ZONING ADMINISTRATOR) Anatomical Region Laterality Modality X-Ray Angiograph y Narrative 01/09/2022 1:21 PM Elio Camilo MD 01/09/2022 1:28 PM [facility] INTERVENTIONAL NEPHROLOGY EXAMINATION: Right upper extremity vein mapping Date: 01/09/2022 History: Bakari Smith is a 41 year old female with history of end-stage renal disease who is right-hand dominant. However the patient's venous vasculature in the left upper extremity does not meet criteria for an autologous AV fistula construction either in the forearm or the upper. The patient's rn medicare is Beth tripp MD. VS: There were no vitals taken for this visit. Technique: Limited grayscale, color, and spectral images of the right upper extremity vasculature were obtained for the purposes of endovascular arteriovenous fistula creation. Findings: Within the right upper arm, the cephalic vein diameter/depth measurements are 4.4 mm/4.1 mm proximally, 3.6 mm/4.9 mm within the midportion, and 3.6 mm/2.5 mm distally. The right forearm cephalic vein diameter/depth measurements are 2.3 mm/4.3 mm proximally, 2 mm/1.3 mm mid forearm, 1.6 mm/1.9 mm at the wrist. The perforating vein extending from the cephalic vein is present and measures 4.1 mm in diameter. The perforating vein communicates with the deep venous system. The upper arm basilic vein diameter/depth measurements are 5.5 mm/11.9 mm proximally, 5.1 mm/11.5 mm within the midportion, and 5.9 mm/6.6 mm distally. The medial brachial vein at the mid upper arm measures 5 mm in diameter. The lateral brachial vein at the mid upper arm measures 2.9 mm in diameter. The brachial artery diameter within the mid upper arm is 4.9 mm. The brachial artery bifurcates below the elbow and demonstrates a triphasic waveform. Flow volume within the brachial artery is 34.8 mL/min. The radial artery at the wrist is 2.1 mm and the ulnar artery at the wrist is 2.2 mm. At the target zone, the common ulnar arterial diameter is 5.3 mm. The medial ulnar vein diameter is 3.8 mm and the lateral ulnar vein diameter is not present at the target zone. IMPRESSION: Limited right upper extremity vein mapping, as described above. This patient is a candidate for right upper extremity endovascular arteriovenous fistula creation and will be scheduled for 01/21/2022. Yola Garcia M.D. Interventional Neprology [facility] [phone] Dr. Beth tripp MD [facility] dialysis Beth Tripp MD VASCULAR LAB ORDER NAZ * IR CENTRAL LINE REMOVAL (05/08/2021 11:17 AM CDT) Anatomical Region Laterality Modality X-Ray Angiograph y Narrative 05/08/2021 11:07 AM CDT Aaliyah Azevedo MD 05/08/2021 11:08 AM VASCULAR AND INTERVENTIONAL RADIOLOGY EXAMINATION: TUNNELED CENTRAL VENOUS CATHETER REMOVAL Date: 05/08/2021 History: Bakari Smith is a 41 year old female with history of hypertension, diabetes, and end-stage renal disease who is now successfully dialyzing through a peritoneal dialysis catheter. Removal of the patient's left thoracic tunneled hemodialysis catheter is requested. Diagnosis code: N18.6 Technique: The risks, benefits, and alternatives were discussed and informed consent was obtained. Prior to beginning the procedure, universal protocol was performed to confirm the patient's identity and the planned procedure. Maximum sterile barriers including cap, mask, hand hygiene, sterile gloves, sterile gown, large sterile drape, and 2% chlorhexidine for cutaneous antisepsis were used. The skin adjacent to the left thoracic tunneled catheter entry site was sterilely prepped and draped. Gentle traction was then used to free the tunneled hemodialysis catheter cuff. The catheter was removed in its entirety and pressure held at the site to obtain hemostasis. A sterile dressing was applied. The patient tolerated the procedure well and without complications. Findings: The catheter exit site showed no evidence of infection. IMPRESSION: Successful tunneled hemodialysis catheter removal, as described above. Tamir Azevedo M.D. Vascular and Interventional Radiology [facility] [phone] CC: Patient's rn medicare: Dr. Modesto Tripp Dialysis unit: [facility] Beth Tirpp MD IR ORDERABLES * IR CENTRAL LINE INSERT TUNNEL (04/17/2021 2:38 PM ZONING ADMINISTRATOR) Anatomical Region Laterality Modality Chest, Upper Extremity X-Ray Ang iography Narrative 04/17/2021 2:39 PM ZONING ADMINISTRATOR Aaliyah Azevedo MD 04/17/2021 2:45 PM VASCULAR AND INTERVENTIONAL RADIOLOGY EXAMINATION: LEFT INTERNAL JUGULAR TUNNELED CENTRAL VENOUS CATHETER PLACEMENT. RIGHT INTERNAL JUGULAR TUNNELED CENTRAL VENOUS CATHETER REMOVAL Date: 04/17/2021 History: Bakari Smith is a 41 year old female with history of hypertension, diabetes, and end-stage renal disease who is currently dialyzing through a right thoracic tunneled hemodialysis catheter that was placed at [facility]. The patient states that the catheter has not been functioning appropriately for the last several treatments. Tunneled hemodialysis catheter exchange is requested. Diagnosis code: N18.6 Fluoroscopy time: 0.4 minutes. Absorbed patient dose: 7.67 mGy. Technique: The risks, benefits, and alternatives were discussed and informed consent was obtained. Prior to beginning the procedure, universal protocol was performed to confirm the patient's identity and the planned procedure. Maximum sterile barriers including cap, mask, hand hygiene, sterile gloves, sterile gown, large sterile drape, sterile gel, sterile ultrasound probe cover, and 2% chlorhexidine for cutaneous antisepsis were used. Given the high right internal jugular vein access site, catheter exchange would not be ideal. Therefore, new left internal jugular tunneled hemodialysis catheter placement and existing right internal jugular tunneled hemodialysis catheter removal was discussed with Dr. Tripp prior to proceeding. Conscious sedation was administered using 1.5 mg of Versed and 50 mcg of Fentanyl at a sedation start time of 2:08 p.m. and end time of 2:19 p.m.. The patient was monitored throughout the entirety of the procedure by the interventional nurse in addition to the physician performing the procedure. Prior to the procedure, the left internal jugular vein was evaluated by ultrasound and an image of the patent vessel was recorded in the patient's electronic medical record. The skin over this vein was sterilely prepped, draped, and infiltrated with 1% lidocaine. This vein was then accessed with a micropuncture needle set using real-time ultrasound guidance. A guidewire was passed centrally using fluoroscopic guidance. The intravascular length from the access site to the right atrium was assessed. After infiltrating the skin in the subclavicular region with 1% lidocaine, a short transverse incision was made and the 27 cm tip-to-cuff Glidepath catheter was tunneled to the internal jugular vein access site and inserted through a peel-away sheath. The peel-away sheath was then removed. Catheter evaluation demonstrated excellent bidirectional flow. The catheter was flushed with heparin and sutured in place using 2-0 Prolene. The incision in the lower neck was closed using Exofin skin glue. Sterile dressings were applied. Attention was then turned to removing the existing right internal jugular tunneled hemodialysis catheter. The skin adjacent to the right thoracic tunneled catheter entry site was sterilely prepped, draped, and infiltrated with 1% lidocaine. Blunt dissection was then used to free the tunneled hemodialysis catheter cuff. The catheter was removed in its entirety and pressure held at the site to obtain hemostasis. A sterile dressing was applied. The patient tolerated the procedure well and without complications. Findings: The final fluoroscopic image demonstrates the new left internal jugular catheter with its tip in the right atrium. No complications were identified. The existing right internal jugular tunneled hemodialysis catheter entered the right internal jugular vein just below the mandible. This catheter was removed in its entirety. No complications were identified. IMPRESSION: Successful left internal jugular tunneled catheter placement, as described above. Successful right internal jugular tunneled hemodialysis catheter removal. PLAN: The catheter is ready for immediate use. When treatment is completed, removal can be scheduled by calling [facility] at [phone]. Tamir Azevedo M.D. Vascular and Interventional Radiology [facility] [phone] CC: Patient's rn medicare: Dr. Modesto Tripp Dialysis unit: [facility] Beth Tripp MD IR ORDERABLES * (ABNORMAL) URINALYSIS REFLEX TO MICROSCOPIC NO CULTURE (09/13/2019 9:58 AM CDT) Only the most recent of3 resultswithin the time period is included. Color UA Yellow Straw, Yellow, Colorless 09/13/2019 10:45 [facility] Clarity UA Slt Cloudy Clear, Slt Cloudy 09/13/2019 10:45 AM CDT [facility] Specific Delong UA 1.023 1.005 - 1.030 09/13/2019 10:45 AM [facility] pH UA 6.0 5.0 - 8.0 pH 09/13/2019 10:45 AM T [facility] Protein UA 3+(A) Negative mg/dL 09/13/2019 10:45 AM [facility] Glucose UA 2+(A) Negative mg/dL 09/13/2019 10:45 AM CDT [facility] Ketone UA Negative Negative mg/dL 09/13/2019 10:45 AM T [facility] Bilirubin UA Negative Negative mg/dL 09/13/2019 10:45 AM [facility] Blood UA Negative Negative 09/13/2019 10:45 AM T [facility] Nitrite UA Negative Negative 09/13/2019 10:45 AM CDT [facility] Leukocyte Esterase Negative Negative 09/13/2019 10:45 AM CDT [facility] Urobilinogen UA Negative Negative mg/dL 09/13/2019 10:45 AM T [facility] RBC UA 0-2 None Seen, 0-2, 3-5 /HPF 09/13/2019 10:45 AM T [facility] WBC UA 0-5 None Seen, 0-5 /HPF 09/13/2019 10:45 AM [facility] Bacteria UA Trace None, Trace /HPF 09/13/2019 10:45 AM [facility] Squamous Epithelial Cells UA 0-2 None Seen, 0-2 /HPF 09/13/2019 10:45 AM T [facility] Hyaline Casts UA 0-2 None Seen, 0-2 /LPF 09/13/2019 10:45 AM [facility] Urine URINE SPECIMEN OBTAINED BY CLEAN CATCH PROCEDURE / Unknown Collection / Unknown 09/13/2019 9:58 AM CDT 09/13/2019 10:23 AM CDT Narrative [facility] - 09/13/2019 10:45 AM CDT Addie Rodriguez MD LAB - URINALYSIS ORDERABLES [address] [id number] [phone] * (ABNORMAL) JAYA BLOOD SINGLE PATTERN (09/13/2019 9:42 AM CDT) JAYA Pattern Homogeneo us(A) 09/16/2019 7:56 AM CDT [employer] [facility] ([facility]) JAYA Titer 1:320(A) 09/16/2019 7:56 AM CDT [employer] [facility] ([facility]) Comment: Performed By: [employer] [address] [place] [address] Rn Emergency: Sahil Chin MD, MS Blood BLOOD SPECIMEN / Unknown Lab Venipuncture / Unknown 09/13/2019 9:42 AM CDT 09/13/2019 10:24 AM CDT Addie Mili Rodriguez MD LAB - CHEMISTRY O RDERABLES [facility] [employer] [facility]) [address] * SS-A (SJOGREN'S) 52+60 ANTIBODIES (09/13/2019 9:42 AM CDT) SS-A 52 Antibody 1 0 - 40 AU/mL 09/15/2019 9:19 AM CDT [employer] ([facility]) Comment: INTERPRETIVE INFORMATION: SSA-52 (Ro52) (MOHSEN) Antibody, IgG 29 AU/mL or Less ............. Negative 30 - 40 AU/mL ................ Equivocal 41 AU/mL or Greater .......... Positive SSA-52 (Ro52) and/or SSA-60 (Ro60) antibodies are associated with a diagnosis of Sjogren syndrome, systemic lupus erythematosus (SLE), and systemic sclerosis. SSA-52 antibody overlaps significantly with the major SSc-related antibodies. SSA-52 (Ro52) antibody occurs frequently in patients with inflammatory myopathies, often in the presence of interstitial lung disease. SS-A 60 Antibody 0 0 - 40 AU/mL 09/15/2019 9:19 AM CDT [employer] ([facility]) Comment: REFERENCE INTERVAL: SSA-60 (Ro60) (MOHSEN) Antibody, IgG 29 AU/mL or Less ............. Negative 30 - 40 AU/mL ................ Equivocal 41 AU/mL or Greater .......... Positive Performed By: [employer] [address] [place] [address] Rn Emergency: Sahil Chin MD, MS Blood BLOOD SPECIMEN / Unknown Lab Venipuncture / Unknown 09/13/2019 9:42 AM CDT 09/13/2019 10:23 AM CDT Addie Rodriguez MD LAB - CHEMISTRY O NARDA Performing Organization Address [facility] Co de Phone Number [employer] [facility]) [address] * LEGGETT/JOB BOSS (MOHSEN) ANTIBODY IGG (09/13/2019 9:42 AM CDT) Leggett/JOB BOSS (MOHSEN) Antibody IgG 3 0 - 40 AU/mL 09/15/2019 9:[address] [facility] [employer] ([facility]) Comment: INTERPRETIVE INFORMATION: Leggett/JOB BOSS (MOHSEN) Antibody, IgG 29 AU/mL or Less ............. Negative 30 - 40 AU/mL ................ Equivocal 41 AU/mL or Greater .......... Positive Leggett/JOB BOSS antibodies are frequently seen in patients with mixed connective tissue disease (MCTD) and are also associated with other systemic autoimmune rheumatic diseases (SARDs) such as systemic lupus erythematosus (SLE), systemic sclerosis, and myositis. Antibodies targeting the Leggett/JOB BOSS antigenic complex also recognize Leggett antigens, therefore, the Leggett antibody response must be considered when interpreting these results. Performed By: [employer] [address] [place] [address] Rn Emergency: Sahil Chin MD, MS Blood BLOOD SPECIMEN / Unknown Lab Venipuncture / Unknown 09/13/2019 9:42 AM CDT 09/13/2019 10:23 AM CDT Addie Rodriguez MD LAB - CHEMISTRY O NARDA Performing Organization Address [facility]/ZIP Co de Phone Number [facility] ([facility]) [address] * (ABNORMAL) CHROMATIN ANTIBODY (09/13/2019 9:42 AM CDT) Only the most recent of3 resultswithin the time period is included. Chromatin Antibody 52(H) 0 - 19 Units 09/17/2019 1:[address] [facility] [employer] ([facility]) Comment: INTERPRETIVE INFORMATION: Chromatin Antibody, IgG 19 Units or less: Negative 20 - 60 Units: Moderate Positive 61 Units or greater: Strong Positive The presence of anti-chromatin antibodies may be useful in the diagnosis of systemic lupus erythematosus (SLE) or drug-induced lupus (DIL) and have been reported to be predictive of lupus nephritis, especially when antibody levels are high. Performed By: [employer] [address] [place] [address] Rn Emergency: Sahil Chin MD, MS Blood BLOOD SPECIMEN / Unknown Lab Venipuncture / Unknown 09/13/2019 9:42 AM CDT 09/13/2019 10:24 AM CDT Addie Rodriguez MD LAB - SEROLOGY OR DERABLES [facility]) [address] [place] [address], [facility] * (ABNORMAL) DNA ANTIBODY DS CRITHIDIA TITER (09/13/2019 9:42 AM CDT) Only the most recent of2 resultswithin the time period is included. dsDNA Antibody IgG 1:20(H) <1:10 2019 4:[address] [facility] [employer] ([facility]) Comment: INTERPRETIVE INFORMATION: Double-Stranded DNA (dsDNA) Antibody, IgG by IFA (using Crithidia luciliae) Positivity for anti-double stranded DNA (anti-dsDNA) IgG antibody is a diagnostic criterion of systemic lupus erythematosus (SLE). The presence of the anti-dsDNA IgG antibody is identified by IFA titer (Crithidia luciliae indirect fluorescent test [SOPHIE]). SOPHIE is highly specific for SLE with a sensitivity of 50-60 percent. Some patients with early or inactive SLE may be positive for anti-dsDNA IgG by CAITLIN but negative by SOPHIE. If the SOPHIE result is negative but the patient has a positive CAITLIN and clinical suspicion remains, consider antinuclear antibody (JAYA) testing by IFA. Additional information and recommendations for testing may be found at [email or web address] [email or web address]. Performed By: [facility] [employer] [address] [place] [address] Rn Emergency: Sahil Chin MD, MS Blood BLOOD SPECIMEN / Unknown Lab Venipuncture / Unknown 09/13/2019 9:42 AM CDT 09/13/2019 10:23 AM CDT Addie Rodriguez MD LAB - SEROLOGY OR DERABLES Performing Organization Address City/[facility]/ZIP Co de Phone Number [facility] [employer] [facility]) [address] [place] [address] * LEGGETT (SM) ANTIBODY MOHSEN (09/13/2019 9:42 AM CDT) Only the most recent of3 resultswithin the time period is included. Leggett (MOHSEN) Antibody 1 0 - 40 AU/mL 09/15/2019 6:32 AM CDT [facility] ([facility]) Comment: INTERPRETIVE INFORMATION: Leggett (MOHSEN) Antibody, IgG 29 AU/mL or Less ............. Negative 30 - 40 AU/mL ................ Equivocal 41 AU/mL or Greater .......... Positive Leggett antibody is highly specific (greater than 90 percent) for systemic lupus erythematosus (SLE) but only occurs in 30-35 percent of SLE cases. The presence of antibodies to Leggett has variable associations with SLE clinical manifestations. Performed By: [employer] [address] [place] [address] Rn Emergency: Sahil Chin MD, MS Blood BLOOD SPECIMEN / Unknown Lab Venipuncture / Unknown 09/13/2019 9:42 AM CDT 09/13/2019 10:23 AM CDT Addie Rodriguez MD LAB - CHEMISTRY O RDERABLES Performing Organization Address City/[facility]/ZIP Co de Phone Number [facility]) [address] [place] [address] * (ABNORMAL) C-REACTIVE PROTEIN (09/13/2019 9:42 AM CDT) Only the most recent of4 resultswithin the time period is included. Pathologist [facility] [place] C-Reactive Protein 1.2(H) <=0.5 mg/dL 09/13/2019 11:22 AM CDT [facility] Blood BLOOD SPECIMEN / Unknown Lab Venipuncture / Unknown 09/13/2019 9:42 AM CDT 09/13/2019 10:24 AM CDT Addie Rodriguez MD LAB - CHEMISTRY O RDERALD [facility] [address] [address], [facility] [phone] * (ABNORMAL) JAYA BLOOD SCREEN W/REFLEX TITER (09/13/2019 9:42 AM CDT) Only the most recent of4 resultswithin the time period is included. [facility] JAYA IgG Detected (A) None Detected 09/15/2019 3:12 PM CDT [employer] ([facility]) Comment: Antibodies to Anti-Nuclear Antibodies (JAYA) detected. Additional testing to follow. INTERPRETIVE INFORMATION: Anti-Nuclear Antibodies (JAYA), IgG by CAITLIN Antinuclear Antibodies (JAYA), IgG by CAITLIN: JAYA specimens are screened using enzyme-linked immunosorbent assay (CAITLIN) methodology. All CAITLIN results reported as Detected are further tested by indirect fluorescent assay (IFA) using HEp-2 substrate with an IgG-specific conjugate. The JAYA CAITLIN screen is designed to detect antibodies against dsDNA, histones, SS-A (Ro), SS-B (La), Leggett, Leggett/JOB BOSS, Scl-70, Mariajose-1, centromeric proteins, other antigens extracted from the HEp-2 cell nucleus. JAYA CAITLIN assays have been reported to have lower sensitivities than JAYA IFA for systemic autoimmune rheumatic diseases (SARD). Negative results do not necessarily rule out SARD. Performed By: [employer] [address] [place] [id number] Rn Emergency: Sahil Chin MD, MS Blood BLOOD SPECIMEN / Unknown Lab Venipuncture / Unknown 09/13/2019 9:42 AM CDT 09/13/2019 10:24 AM CDT Addie Rodriguez MD LAB - CHEMISTRY O RDMANISHA Performing Organization Address [facility]/ZIP Co de Phone Number [facility] [employer] [facility]) [address] * HISTONE ANTIBODY (09/13/2019 9:42 AM CDT) Only the most recent of3 resultswithin the time period is included. Histone Antibody IgG 0.7 0.0 - 0.9 Units 09/16/2019 10:[address] [facility] [employer] ([facility]) Comment: INTERPRETIVE INFORMATION: Histone Ab, IgG 0.9 Units or less ............ Negative 1.0 - 1.5 Units .............. Weak Positive 1.6 - 2.5 Units .............. Moderate Positive 2.6 Units or greater ......... Strong Positive Performed By: [facility] [employer] [address] [place] [address] Rn Emergency: Sahil Chni MD, MS Blood BLOOD SPECIMEN / Unknown Lab Venipuncture / Unknown 09/13/2019 9:42 AM CDT 09/13/2019 10:23 AM CDT Addie Rodriguez MD LAB - CHEMISTRY O NARDA Performing Organization Address [facility] Co de Phone Number [facility] [employer] ([facility]) [address] * SS-B (SJOGREN'S) ANTIBODY (09/13/2019 9:42 AM CDT) Only the most recent of3 resultswithin the time period is included. SS-B Antibody 0 0 - 40 AU/mL 09/15/2019 6:[address] [facility] [employer] ([facility]) Comment: INTERPRETIVE INFORMATION: SSB (La) (MOHSEN) Ab, IgG 29 AU/mL or Less ............. Negative 30 - 40 AU/mL ................ Equivocal 41 AU/mL or Greater .......... Positive SSB (La) antibody is seen in 50-60% of Sjogren syndrome cases and is specific if it is the only MOHSEN antibody present. 15-25% of patients with systemic lupus erythematosus (SLE) and 5-10% of patients with progressive systemic sclerosis (PSS) also have this antibody. Performed By: [place] [address] Rn Emergency: Sahil Chin MD, MS Blood BLOOD SPECIMEN / Unknown Lab Venipuncture / Unknown 09/13/2019 9:42 AM CDT 09/13/2019 10:23 AM CDT Addie Rodriguez MD LAB - CHEMISTRY O RDERABLES [facility] ([facility]) [address] [place] [address] * (ABNORMAL) ERYTHROCYTE SEDIMENTATION RATE (09/13/2019 9:42 AM CDT) Only the most recent of5 resultswithin the time period is included. Pathologist [facility] [place] Erythrocyte Sedimentation Rate Westergren 85(H) 0 - 20 MM/HR 09/13/2019 10:51 AM CDT [facility] Blood BLOOD SPECIMEN / Unknown Lab Venipuncture / Unknown 09/13/2019 9:42 AM CDT 09/13/2019 10:24 AM CDT Addie Rodriguez MD LAB - HEMATOLOGY ORDERABLES [address] [address] [phone] * (ABNORMAL) CBC WITH DIFFERENTIAL (09/13/2019 9:42 AM CDT) Only the most recent of3 resultswithin the time period is included. WBC 5.1 3.5 - 10.5 10 3/uL 09/13/2019 10:40 AM CDT [facility] RBC 4.53 3.90 - 5.00 10 6/uL 09/13/2019 10:40 AM CDT [facility] Hemoglobin 11.5(L) 12.0 - 15.5 g/dL 09/13/2019 10:40 AM [facility] Hematocrit 37.1 35.0 - 45.0 % 09/13/2019 10:40 AM [facility] MCV 81.9 81.0 - 97.0 fL 09/13/2019 10:40 AM [facility] MCH 25.4(L) 28.0 - 34.0 pg 09/13/2019 10:40 AM [facility] MCHC 31.0(L) 32.0 - 36.0 g/dL 09/13/2019 10:40 AM [facility] Platelet Count 278 150 - 400 10 3/uL 09/13/2019 10:40 AM [facility] RDW-SD 41.2 36.0 - 50.0 fL 09/13/2019 10:40 AM [facility] RDW-CV 13.8 11.2 - 14.8 % 09/13/2019 10:40 AM [facility] MPV 10.1 9.3 - 12.8 fL 09/13/2019 10:40 AM [facility] nRBC Absolute 0.00 0 10 3/uL 09/13/2019 10:40 AM [facility] nRBC Auto 0.0 0 /100 WBC 09/13/2019 10:40 AM [facility] Neutrophils % 47.2 35.0 - 70.0 % 09/13/2019 10:40 AM [facility] Lymphocytes % 41.8 19.7 - 55.1 % 09/13/2019 10:40 AM [facility] Monocytes % 8.8 3.0 - 15.0 % 09/13/2019 10:40 AM [facility] Eosinophils % 0.8 0.0 - 6.0 % 09/13/2019 10:40 AM [facility] Basophil % 0.4 0.0 - 1.5 % 09/13/2019 10:40 AM [facility] Neutrophils Absolute 2.4 1.6 - 7.0 10 3/uL 09/13/2019 10:40 AM [facility] Lymphocyte Absolute 2.2 0.8 - 2.9 10 3/uL 09/13/2019 10:40 AM [facility] Monocytes Absolute 0.45 0.14 - 0.66 10 3/uL 09/13/2019 10:40 AM [facility] Eosinophils Absolute 0.04 0.00 - 0.45 10 3/uL 09/13/2019 10:40 AM [facility] Basophils Absolute 0.02 0.00 - 0.06 10 3/uL 09/13/2019 10:40 AM [facility] Immature Granulocytes % 1.0 0.0 - 1.0 % 09/13/2019 10:40 AM [facility] Blood BLOOD SPECIMEN / Unknown Lab Venipuncture / Unknown 09/13/2019 9:42 AM CDT 09/13/2019 10:24 AM CDT Addie Rodriguez MD LAB - HEMATOLOGY ORDERABLES [address] [address] [phone] * (ABNORMAL) COMPREHENSIVE METABOLIC PANEL (09/13/2019 9:42 AM CDT) Only the most recent of5 resultswithin the time period is included. BUN 34(H) 7 - 26 mg/dL 09/13/2019 11:30 AM [facility] Creatinine 3.8(H) 0.6 - 1.2 mg/dL 09/13/2019 11:30 AM [facility] Sodium 137 136 - 145 mmol/L 09/13/2019 11:30 AM [facility] Potassium 4.6(H) 3.5 - 4.5 mmol/L 09/13/2019 11:30 AM [facility] Chloride 107 98 - 107 mmol/L 09/13/2019 11:30 AM [facility] CO2 23 22 - 29 mmol/L 09/13/2019 11:30 AM [facility] Glucose 174(H) 70 - 115 mg/dL 09/13/2019 11:30 AM [facility] Calcium 8.4 8.4 - 10.2 mg/dL 09/13/2019 11:30 AM [facility] Protein Total 6.5 6.0 - 8.3 g/dL 09/13/2019 11:30 AM [facility] Albumin 2.0(L) 3.4 - 5.0 g/dL 09/13/2019 11:30 AM [facility] Bilirubin Total 0.1(L) 0.2 - 1.2 mg/dL 09/13/2019 11:30 AM [facility] Alkaline Phosphatase 126 40 - 150 Units/L 09/13/2019 11:30 AM [facility] ALT 20 0 - 55 Units/L 09/13/2019 11:30 AM [facility] AST 23 5 - 34 Units/L 09/13/2019 11:30 AM [facility] Anion Gap 12 8 - 18 09/13/2019 11:30 AM [facility] BUN/Creatinine Ratio 9 7 - 23 09/13/2019 11:30 AM [facility] Osmolality Calculated 296 270 - 300 mOsm/kg 09/13/2019 11:30 AM [facility] Albumin/Globulin Ratio 0.4(L) 1.1 - 2.3 09/13/2019 11:30 AM [facility] eGFR 16(L) >60 mL/min/1.7 3 m2 09/13/2019 11:30 AM [facility] Blood BLOOD SPECIMEN / Unknown Lab Venipuncture / Unknown 09/13/2019 9:42 AM CDT 09/13/2019 10:24 AM CDT Addie Rodriguez MD LAB - CHEMISTRY O RDERABLES Performing Organization Address [facility]/State/[facility] Co de Phone Number [address] [address] [phone] * OPH VISUAL FIELD TEST [facility] (11/04/2018 1:45 PM CDT) Anatomical Region Laterality Modality Other 11/04/2018 1:45 PM CDT Titi Rosenberg MD OPHTHALMOLOGY SERVIC ES ORDERABLES * OPH OCT TEST [facility] (11/04/2018 12:00 AM CDT) Anatomical Region Laterality Modality Other 11/04/2018 Titi Rosenberg MD OPHTHALMOLOGY SERVIC ES ORDERABLES * HEMOGLOBIN A1C - POINT OF CARE (AMB) [facility] (11/01/2018 10:11 AM CDT) Only the most recent of9 resultswithin the time period is included. Hemoglobin A1c POCT 8.5% BLOOD SPECIMEN / Unknown 11/01/2018 10:11 AM CDT Tessie Pritchard FINANCIAL UNDERWRITER-OFFICE SERVICES CLERK LAB - POINT O F CARE ORDERABLES * OPH VISUAL FIELD TEST [facility] (09/21/2018 11:06 AM CDT) Anatomical Region Laterality Modality Other 09/21/2018 11:0 6 AM CDT Michaela Dominguez MD OPHTHALMOLOGY SERVIC ES ORDERABLES * OPH OCT TEST [facility] (09/21/2018 12:00 AM CDT) Anatomical Region Laterality Modality Other 09/21/2018 Michaela Dominguez MD OPHTHALMOLOGY SERVIC ES ORDERABLES * CYCLIC CITRUL PEPTIDE ANTIBODY IGG/IGA (CCP) (09/01/2018 10:21 AM CDT) CCP Antibodies IgG/IgA 12 0 - 19 units 09/02/2018 10:06 PM CDT [facility] ([facility]) Comment: Negative <20 Weak positive 20 - 39 Moderate positive 40 - 59 Strong positive >59 Blood BLOOD SPECIMEN / Unknown Lab Venipuncture / Unknown 09/01/2018 10:21 AM CDT 09/01/2018 10:40 AM CDT Narrative [facility] ([facility]) - 09/02/2018 10:06 PM CDT Performed at: 01 - [address] [id number] Gripper Attacher: Negro Sullivan MD, Phone: [phone] Damaris Shetty DO LAB - SEROLOGY ORDER NAZ [facility] ([facility]) [address] [place] [address] * (ABNORMAL) MELISSA STAINING PATTERNS REFLEXED (09/01/2018 10:21 AM CDT) Only the most recent of3 resultswithin the time period is included. Homogeneous Pattern 1:160(H) 09/02/2018 2:11 PM CDT [facility] ([facility]) Note Comment 09/02/2018 2:11 PM CDT [facility] ([facility]) Comment: A positive JAYA result may occur in healthy individuals (low titer) or be associated with a variety of diseases. See interpretation chart which is not all inclusive: Pattern Antigen Detected Suggested Disease Association Homogeneous DNA(ds,ss), SLE - High titers Nucleosomes, Histones Drug-induced SLE Speckled Sm, JOB BOSS, SCL-70, SLE,MCTD,PSS (diffuse form), SS-A/SS-B Sjogrens Nucleolar SCL-70, PM-1/SCL High titers Scleroderma, PM/DM Centromere Centromere PSS (limited form) w/Crest syndrome variable Nuclear Dot Sp100,x47-lpdcot Primary Biliary Cirrhosis Nuclear GP210, Primary Biliary Cirrhosis Membrane roxanne A,B,C Blood BLOOD SPECIMEN / Unknown Lab Venipuncture / Unknown 09/01/2018 10:21 AM CDT 09/01/2018 10:41 AM CDT Narrative [facility] ([facility]) - 09/02/2018 2:11 PM CDT Performed at: [address] [place] [address] [address] [place], [place] [id number] Gripper Attacher: Neil Maloney PhD, Phone: [phone] Damaris Shetty DO LAB - PATHOLOGY/CYTO LOGY ORDERABLES Performing Organization Address [facility] de Phone Number [facility]) [address] [place] [address] * JOB BOSS ANTIBODY (09/01/2018 10:21 AM CDT) Only the most recent of2 resultswithin the time period is included. SM/JOB BOSS Antibody 5.4 0.0 - 19.9 Units 09/03/2018 10:34 AM CDT [facility] Comment: MOHSEN Antibody Numeric Result Interpretation: <20.0 Units: Negative 20.0 - 39.0 Units: Weakly Positive >39.0 Units: Positive Blood BLOOD SPECIMEN / Unknown Lab Venipuncture / Unknown 09/01/2018 10:21 AM CDT 09/01/2018 10:40 AM CDT Damaris Shetty DO LAB - CHEMISTRY [place] Performing Organization Address [facility] Co de Phone Number [address] [phone] * RHEUMATOID FACTOR BLOOD QUANTITATIVE (09/01/2018 10:21 AM CDT) Rheumatoid Factor <15 <30 IU/mL 09/01/2018 4:17 PM CDT [facility] Blood BLOOD SPECIMEN / Unknown Lab Venipuncture / Unknown 09/01/2018 10:21 AM CDT 09/01/2018 10:40 AM CDT Damaris Clearyancelmo [facility] LAB - CHEMISTRY ORDGarrison MONTEIRO Performing Organization Address City/[facility]/ZIP Co de Phone Number [address] [phone] * THYROID PEROXIDASE ANTIBODY (09/01/2018 10:21 AM CDT) Pathologist [facility] [place] Thyroid Peroxidase TPO Antibody 16 0 - 34 IU/mL 09/02/2018 3:07 AM CDT [facility] ([facility]) Blood BLOOD SPECIMEN / Unknown Lab Venipuncture / Unknown 09/01/2018 10:21 AM CDT 09/01/2018 10:40 AM CDT Narrative [facility] ([facility]) - 09/02/2018 3:07 AM CDT Performed at: 01 - [facility] [address] [place], [place] [id number] Gripper Attacher: Neil Maloney PhD, Phone: [phone] Damaris Clearyancelmo [facility] LAB - CHEMISTRY [place] [facility] ([facility]) [address] [place] [address] * THYROGLOBULIN ANTIBODY (09/01/2018 10:21 AM CDT) Thyroglobulin Antibody <1.0 0.0 - 0.9 IU/mL 09/02/2018 1:10 PM CDT [facility] ([facility]) Comment:Thyroglobulin Antibo dy measured by Beatriz Zachariah [employer] Blood BLOOD SPECIMEN / Unknown Lab Venipuncture / Unknown 09/01/2018 10:21 AM CDT 09/01/2018 10:39 AM CDT Narrative [facility] ([facility]) - 09/02/2018 1:10 PM CDT Performed at: [address] [place] [address] [address] [place], [place] [id number] Gripper Attacher: Neil Maloney PhD, Phone: [phone] Damaris Shetty LAB - CHEMISTRY [facility] THANIA Performing Organization Address City/[facility]/ZIP Co de Phone Number [facility] ([facility]) [address] [place] [address] * SS-A (SJOGREN'S) ANTIBODY (09/01/2018 10:21 AM CDT) Only the most recent of2 resultswithin the time period is included. Pathologist [facility] [place] SS-A (Ro) Antibody 2.3 0.0 - 19.9 Units 09/03/2018 10:35 AM CDT [facility] Comment: MOHSEN Antibody Numeric Result Interpretation: <20.0 Units: Negative 20.0 - 39.0 Units: Weakly Positive >39.0 Units: Positive Blood BLOOD SPECIMEN / Unknown Lab Venipuncture / Unknown 09/01/2018 10:21 AM CDT 09/01/2018 10:40 AM CDT Damaris Shetty LAB - CHEMISTRY [place] Performing Organization Address [facility]/ZIP Co de Phone Number [address] [phone] * MPO/ND 3 AUTOANTIBODIES PANEL (09/01/2018 10:21 AM CDT) Only the most recent of2 resultswithin the time period is included. Anti-myeloperox idase (MPO) Antibody <9.0 0.0 - 9.0 U/mL 09/03/2018 1:08 PM CDT [facility] ([facility]) Anti-proteinase 3 (ND-3) Abs <3.5 0.0 - 3.5 U/mL 09/03/2018 1:08 PM CDT [facility] ([facility]) Blood BLOOD SPECIMEN / Unknown Lab Venipuncture / Unknown 09/01/2018 10:21 AM CDT 09/01/2018 10:40 AM CDT Narrative [facility] ([facility]) - 09/03/2018 1:08 PM CDT Performed at: - [address] [id number] Gripper Attacher: Negro Sullivan MD, Phone: [phone] Damaris Clearyancelmo [facility] LAB - CHEMISTRY DELLGarrison THANIA [facility] ([facility]) [address] [place] [address] * TSH (09/01/2018 10:21 AM CDT) Only the most recent of3 resultswithin the time period is included. TSH 1.625 0.350 - 4.940 uIU/mL 09/01/2018 12:32 PM CDT [facility] Blood BLOOD SPECIMEN / Unknown Lab Venipuncture / Unknown 09/01/2018 10:21 AM CDT 09/01/2018 10:39 AM CDT Damaris Clearyancelmo [facility] LAB - CHEMISTRY DELLGarrison GRANDEELEN Performing Organization Address [facility]/ZIP Co de Phone Number [address] [phone] * T4 FREE (09/01/2018 10:21 AM CDT) T4 Free 0.9 0.7 - 1.5 ng/dL 09/01/2018 12:32 PM CDT [facility] Blood BLOOD SPECIMEN / Unknown Lab Venipuncture / Unknown 09/01/2018 10:21 AM CDT 09/01/2018 10:39 AM CDT Damaris Clearyancelmo [facility] LAB - CHEMISTRY PRESTON THANIA Performing Organization Address City/[facility]/ZIP Co de Phone Number [address] [phone] * OPH OCT TEST [facility] (06/08/2018 12:00 AM CDT) Anatomical Region Laterality Modality Other 06/08/2018 Michaela Dominguez MD OPHTHALMOLOGY SERVIC ES ORDERABLES * (ABNORMAL) MICROALB/CREAT RATIO URINE RANDOM PANEL (06/07/2018 11:49 AM CDT) Creatinine Urine 64.5 Not Estab. mg/dL [facility] INSURANCE BILL Microalbumin Urine 2,153.9 Not Estab. ug/mL [facility] INSURANCE BILL Comment: Results confirmed on dilution. Microalbumin/Crea tinine Ratio 3,339.4(H ) 0.0 - 30.0 mg/g creat [facility] INSURANCE BILL Comment: Normal: 0.0 - 30.0 Albuminuria: 31.0 - 300.0 Clinical albuminuria: >300.0 06/07/2018 11:4 9 AM CDT 06/07/2018 Narrative Resulting Agency Comment [facility] [address] [facility] [id number] Tessie Pritchard FINANCIAL UNDERWRITER-OFFICE SERVICES CLERK LAB - URINE C HEMISTRY ORDERABLES [facility] INSURANCE BILL [address] [place] [address] * (ABNORMAL) VITAMIN D 25-HYDROXY (06/07/2018 11:49 AM CDT) Only the most recent of2 resultswithin the time period is included. Vitamin D, 25 Hydroxy 8.9(L) 30.0 - 100.0 ng/mL [facility] INSURANCE BILL Comment: Vitamin D deficiency has been defined by the Lester of Medicine and an Endocrine Society practice guideline as a level of serum 25-OH vitamin D less than 20 ng/mL (1,2). The Endocrine Society went on to further define vitamin D insufficiency as a level between 21 and 29 ng/mL (2). 1. IOM ([place] of Medicine). 2010. Dietary reference intakes for calcium and D. [place]: The National Academies Press. 2. Heavenly MF, Carlton SANDOVAL, Clive BAUMANN, et al. Evaluation, treatment, and prevention of vitamin D deficiency: an Endocrine Society clinical practice guideline. JCEM. 2010; 96(0):1911-30. 06/07/2018 11:4 9 AM CDT 06/07/2018 Narrative Resulting Agency Comment [facility] [address] [facility] [id number] Tessie Dolan Macho FINANCIAL UNDERWRITER-OFFICE SERVICES CLERK LAB - INSOLE AND OUTSOLE PREPARER RY ORDERABLES [facility] INSURANCE BILL [address] [place] [address] * (ABNORMAL) BASIC METABOLIC PANEL (CALCIUM TOTAL) (06/07/2018 11:49 AM CDT) Only the most recent of5 resultswithin the time period is included. Glucose 361(H) 65 - 99 mg/dL [facility] INSURANCE BILL BUN 36(H) 6 - 24 mg/dL [facility] INSURANCE BILL Creatinine 1.86(H) 0.57 - 1.00 mg/dL [facility] INSURANCE BILL eGFR by MDRD 33(L) >59 mL/min/1.7 3 [facility] INSURANCE BILL eGFR by MDRD 38(L) >59 mL/min/1.7 3 [facility] INSURANCE BILL BUN/Creatinine Ratio 19 9 - 23 [facility] INSURANCE BILL Sodium 139 134 - 144 mmol/L [facility] INSURANCE BILL Potassium 4.4 3.5 - 5.2 mmol/L [facility] INSURANCE BILL Chloride 104 96 - 106 mmol/L [facility] INSURANCE BILL CO2 20 20 - 29 mmol/L [facility] INSURANCE BILL Calcium 8.6(L) 8.7 - 10.2 mg/dL [facility] INSURANCE BILL 06/07/2018 11:4 9 AM CDT 06/07/2018 Narrative Resulting Agency Comment [facility] [address] [facility] [id number] Tessieyola Pritchard FINANCIAL UNDERWRITER-OFFICE SERVICES CLERK LAB - INSOLE AND OUTSOLE PREPARER RY ORDERABLES Performing Organization Address City/[facility]/ZIP Co de Phone Number [facility] INSURANCE BILL [address] [place] [address] * DNA ANTIBODY DOUBLE STRANDED (05/28/2018 12:26 PM CDT) dsDNA Antibody 22 0 - 29 IU/mL 06/01/2018 12:57 PM CDT [facility] Comment: dsDNA Antibody Numeric Result Interpretation: 0 - 29 IU/mL: Negative 30 - 75 IU/mL: Borderline >75 IU/mL: Positive Blood BLOOD SPECIMEN / Unknown Lab Venipuncture / Unknown 05/28/2018 12:26 PM CDT 05/28/2018 12:35 PM CDT Es Thornton MD LAB - HEMATOLOGY ORD ERABLES [address] [phone] * (ABNORMAL) GLUCOSE - POINT OF CARE (05/28/2018 12:21 PM CDT) Only the most recent of24 resultswithin the time period is included. [facility] Glucose WB/POC 294(H) 70 - 115 mg/dL 05/28/2018 12:24 PM CDT [facility] Specimen Type Arterial/C apillary 05/28/2018 12:24 PM CDT [facility] Blood BLOOD SPECIMEN / Unknown 05/28/2018 12:21 PM CDT 05/28/2018 12:24 PM CDT Narrative [facility] - 05/28/2018 12:24 PM CDT PEDIATRIC CARDIOLOGIST: ELISSA CAMARA Dion Arreola MD LAB - POINT OF CARE ORDERABLES [address] [phone] * CRYOGLOBULIN QUANTITATIVE (05/28/2018 12:14 PM CDT) [facility] Cryoglobulin Quantitative None Detected None Detected mg/dL 05/31/2018 11:10 AM CDT [facility] Blood BLOOD SPECIMEN / Unknown Lab Venipuncture / Unknown 05/28/2018 12:14 PM CDT 05/28/2018 12:31 PM CDT Es Thornton MD LAB - CHEMISTRY [place] Performing Organization Address [facility]/ZIP Co de Phone Number [address] [phone] * HEPATITIS C AB SCREEN RFLX NAAT QUANT (05/28/2018 12:13 PM CDT) Pathologist [facility] [place] Hepatitis C Antibody Non-react javier Non-reac tive 05/28/2018 1:18 PM CDT [facility] Comment: Hepatitis C Antibody screen indicates [...] 12:13 PM CDT 05/28/2018 12:35 PM CDT sE Thornton MD LAB - CHEMISTRY [place] MONTEIRO Performing Organization Address [facility] Co de Phone Number [address] [phone] * NEUTROPHIL CYTOPLASMIC ANTIBODY IGG (05/28/2018 12:13 PM CDT) Only the most recent of2 resultswithin the time period is included. [facility] ANCA IgG <1:20 <1:20 05/30/2018 3:16 PM CDT [facility] ([facility]) Comment: The ANCA IFA is <1:20; therefore, no further testing will be performed. INTERPRETIVE INFORMATION: Anti-Neutrophil Cyto Ab, IgG Neutrophil Cytoplasmic Antibodies (C-ANCA = granular cytoplasmic staining, P-ANCA = perinuclear staining) are found in the serum of over 90 percent of patients with certain necrotizing systemic vasculitides, and usually in less than 5 percent of patients with collagen vascular disease or arthritis. Performed by [employer], [address] [place] [id number] [email or web address] Network, Sahil Chin MD, Lab. Director Blood BLOOD SPECIMEN / Unknown Lab Venipuncture / Unknown 05/28/2018 12:13 PM CDT 05/28/2018 12:36 PM CDT Es Thornton MD LAB - SEROLOGY ORDER NAZ [facility] [employer] ([facility]) [address] * COMPLEMENT TOTAL (05/28/2018 12:13 PM CDT) Complement Total CH50 >60 >41 U/mL 05/31/2018 2:10 PM CDT [facility] ([facility]) Blood BLOOD SPECIMEN / Unknown Lab Venipuncture / Unknown 05/28/2018 12:13 PM CDT 05/28/2018 12:35 PM CDT Narrative [facility] ([facility]) - 05/31/2018 2:10 PM CDT Performed at: [facility] Lab[address] [id number] Gripper Attacher: Neil Maloney PhD, Phone: [phone] Es Thornton MD LAB - CHEMISTRY [facility] Performing Organization Address City/[facility]/ZIP Co de Phone Number [facility] ([facility]) [address] [place] [address] * SCLERODERMA 70 (SCL) ANTIBODY (05/28/2018 12:13 PM CDT) SCL-70 Antibody 4.3 0.0 - 19.9 Units 06/01/2018 12:57 PM CDT [facility] Comment: MOHSEN Antibody Numeric Result Interpretation: <20.0 Units: Negative 20.0 - 39.0 Units: Weakly Positive >39.0 Units: Positive Blood BLOOD SPECIMEN / Unknown Lab Venipuncture / Unknown 05/28/2018 12:13 PM CDT 05/28/2018 12:35 PM CDT Es Thornton MD LAB - CHEMISTRY [facility] [address] [phone] * HEPATITIS B SURFACE ANTIGEN W RFLX CONFIRMATION (05/28/2018 12:13 PM CDT) Hepatitis B Virus Surface Antigen Non-reacti ve Non-reacti ve 05/28/2018 1:17 PM CDT [facility] Blood BLOOD SPECIMEN / Unknown Lab Venipuncture / Unknown 05/28/2018 12:13 PM CDT 05/28/2018 12:35 PM CDT Es Thornton MD LAB - CHEMISTRY [facility] Performing Organization Address City/[facility]/[place] [address], [facility] [phone] * PTH INTACT W/O CALCIUM (05/28/2018 12:12 PM CDT) Pathologist [facility] [place] PTH Intact 49.1 15.0 - 65.0 pg/mL 05/28/2018 2:16 PM CDT [facility] Blood BLOOD SPECIMEN / Unknown Lab Venipuncture / Unknown 05/28/2018 12:12 PM CDT 05/28/2018 12:37 PM CDT Es Thornton MD LAB - CHEMISTRY [facility] Performing Organization Address City/[facility]/[place] [address], [facility] [phone] * ANGIOTENSIN CONVERTING ENZYME BLOOD (05/28/2018 12:12 PM CDT) Pathologist [facility] [place] Angiotensin-Con verting Enzyme 60 14 - 82 U/L 05/31/2018 2:10 PM CDT [facility] ([facility]) Blood BLOOD SPECIMEN / Unknown Lab Venipuncture / Unknown 05/28/2018 12:12 PM CDT 05/28/2018 12:36 PM CDT Narrative [facility] ([facility]) - 05/31/2018 2:10 PM CDT Performed at: - [address] [id number] Gripper Attacher: Neil Maloney PhD, Phone: [phone] Es Thornton MD LAB - CHEMISTRY ORDE THANIA [facility] ([facility]) [address] [place] [address], [place] * COMPLEMENT C4 (05/28/2018 12:12 PM CDT) Complement C4 40 15 - 57 mg/dL 05/28/2018 1:03 PM CDT [facility] Blood BLOOD SPECIMEN / Unknown Lab Venipuncture / Unknown 05/28/2018 12:12 PM CDT 05/28/2018 12:36 PM CDT Es Thornton MD LAB - SEROLOGY ORDER NAZ Performing Organization Address City/[facility]/ZIP Co de Phone Number [address] [phone] * COMPLEMENT C3 (05/28/2018 12:12 PM CDT) Complement C3 127 82 - 193 mg/dL 05/28/2018 1:03 PM CDT [facility] Blood BLOOD SPECIMEN / Unknown Lab Venipuncture / Unknown 05/28/2018 12:12 PM CDT 05/28/2018 12:36 PM CDT Es Thornton MD LAB - CHEMISTRY ORDE THANIA Performing Organization Address City/[facility]/ZIP Co de Phone Number [address] [phone] * US RETROPERITONEAL COMPLETE (05/26/2018 3:43 PM CDT) Anatomical Region Laterality Modality Abdomen Ultrasound 05/26/2018 3:38 PM CDT Impressions 05/26/2018 4:36 PM CDT IMPRESSION: Normal renal size. No evidence of nephrolithiasis, hydronephrosis, or solid renal mass. Dictated by Ruma Gomes M.D. I, Dr. MATTHIAS STONE M.D. have personally reviewed and interpreted this examination/study. This report was electronically signed by MATTHIAS STONE M.D. on 05/26/2018 4:36 PM . Narrative 05/26/2018 4:36 PM CDT EXAMINATION: Complete retroperitoneal sonogram HISTORY: ROSHNI, FENa suggestive of intrinsic cause COMPARISON: No prior study is available for comparison. FINDINGS: Right kidney: 9.6 x 5.6 x 4.8 cm Left kidney: 10.0 x 6.3 x 5.5 cm Renal parenchymal echogenicity is normal. There is a 1.4 x 1.2 x 1.3 cm anechoic right upper pole renal cyst. There is no evidence of a solid renal mass, renal calculi, or hydronephrosis. Blood flow is seen within the renal arteries and veins. The bladder is distended and appears normal. Procedure Note Matthias Stone MD - 05/26/2018 EXAMINATION: Complete retroperitoneal sonogram HISTORY: ROSHNI, FENa suggestive of intrinsic cause COMPARISON: No prior study is available for comparison. FINDINGS: Right kidney: 9.6 x 5.6 x 4.8 cm Left kidney: 10.0 x 6.3 x 5.5 cm Renal parenchymal echogenicity is normal. There is a 1.4 x 1.2 x 1.3 cm anechoic right upper pole renal cyst. There is no evidence of a solid renal mass, renal calculi, or hydronephrosis. Blood flow is seen within the renal arteries and veins. The bladder is distended and appearsnormal. IMPRESSION: Normal renal size. No evidence of nephrolithiasis, hydronephrosis, or solid renal mass. Dictated by Ruma Gomes M.D. I, Dr. MATTHIAS STONE M.D. have personally reviewed and interpretedthis examination/study. This report was electronically signed by MATTHIAS STONE M.D. on05/26/2018 4:36 PM . Zach Morin MD US ORDERABLES * SODIUM URINE RANDOM (05/26/2018 9:44 AM CDT) Sodium Urine 64 Not Established mmol/L 05/26/2018 10:12 AM CDT [facility] Urine URINE SPECIMEN OBTAINED BY CLEAN CATCH PROCEDURE / Unknown Collection / Unknown 05/26/2018 9:44 AM CDT 05/26/2018 9:54 AM CDT Zach Morin MD LAB - URINE CHEMISTR Y ORDERABLES Performing Organization Address [facility] Co de Phone Number [address] [phone] * UREA NITROGEN URINE RANDOM (05/26/2018 9:44 AM CDT) Urea Nitrogen Random Urine 712 Not Established mg/dL 05/26/2018 10:54 AM CDT [facility] Urine URINE SPECIMEN OBTAINED BY CLEAN CATCH PROCEDURE / Unknown Collection / Unknown 05/26/2018 9:44 AM CDT 05/26/2018 10:42 AM CDT Ashish Mckee MD LAB - URINE CHEMISTR Y ORDERABLES Performing Organization Address [facility] de Phone Number [address] [phone] * CREATININE URINE RANDOM (05/26/2018 9:44 AM CDT) Creatinine Urine 85 Not Established mg/dL 05/26/2018 10:14 AM CDT [facility] Comment: Result obtained by dilution. Urine URINE SPECIMEN OBTAINED BY CLEAN CATCH PROCEDURE / Unknown Collection / Unknown 05/26/2018 9:44 AM CDT 05/26/2018 9:54 AM CDT Zach Morin MD LAB - URINE CHEMISTR Y ORDERABLES Performing Organization Address [facility] Co de Phone Number [address] [phone] * MAGNESIUM BLOOD (05/25/2018 9:29 PM CDT) Only the most recent of2 resultswithin the time period is included. Magnesium 1.8 1.6 - 2.6 mg/dL 05/25/2018 9:57 PM CDT [facility] Blood BLOOD SPECIMEN / Unknown Venipuncture / Unknown 05/25/2018 9:29 PM CDT 05/25/2018 9:35 PM CDT Albert Morejon MD LAB - CHEMISTRY PREST[facility] MONTEIRO [facility] [address] [place] [address] * FLOW CYTOMETRY BODY FLUID (05/25/2018 3:00 PM CDT) Case Report Flow Cytometry Case: [id number] Authorizing Provider: Zach Morin MD Collected: 05/25/2018 03:00 PM Ordering Location: [address] Received: 05/25/2018 04:01 PM Pathologist: Chaz Arango MD Specimen: CSF 9 4:18 PM CDT [facility] Final Diagnosis Cerebrospinal fluid, flow cytometric immunophenotypic analysis: - No evidence of non Hodgkin lymphoma or high-grade myeloid neoplasm. - See interpretation. 9 4:18 PM CDT [facility] Flow Cytometry Interpretation The cerebrospinal fluid specimen has a viability of 100%. Most of the events are within the lymphocyte gate (91%). Within the lymphocyte region, there is no monotypic B-cell population identified (kappa: lambda ratio = 1.7:1). There is no aberrant co-expression of CD5 or CD10 on the mature B-cells. There is no immunophenotypically aberrant or expanded T-cell population seen (CD4:CD8 ratio = 1.6:1). There is no definitive blast population identified. There is a small polyclonal plasma cell population identified (2.0% of all events) with a kappa: lambda ratio of 2.7:1. A cytospin prepared from the flow cytometry specimen is reviewed for water quality manager purposes. Overall, the cerebrospinal fluid specimen shows no evidence of involvement by non Hodgkin lymphoma or a high-grade myeloid neoplasm. Correlation with clinical findings is required. HAND DRAWER IN HELPER/NW 9 4:18 PM CDT [facility] Flow Cytometry Results Differential Result Comment Flow Cell Count /uL 440 Total Viability % 100 Lymphocytes % 91 Dim CD45 Region % 1 Monocytes % 3 Granulocytes % 4 9 4:18 PM CDT [facility] Client Specimen ID # [id number] 9 4:18 PM [facility] Reason for test Blurry vision 368.8 9 4:18 PM T [facility] Number of markers 20 were performed. A Flow CD3 A Flow CD10 A Flow CD20 A Flow CD23 A Flow CD117 A FLOW CD138 A Flow CD2 A Flow CD4 A Flow CD1a A Flow CD5 A Flow CD19 A Flow CD34 A Flow CD45 A Flow CD38 A Flow CD56 A Flow CD7 A Flow CD8 A Flow CD30 A [place]+CD19+ A Lambda+CD19+ 9 4:18 PM T [facility] Disclaimer Test performed at [facility], [address] [place] [address], [address]. *The established laboratory minimum viability is 70%. Values below the minimum may result in the failure to find an abnormal population of cells. This test was developed and its performance characteristics determined by the Flow Cytometry Laboratory. It has not been cleared by the [place] Food and Drug Administration (FDA). The FDA has determined that such clearance or approval is not necessary. This test is used for clinical purposes. It should not be regarded as investigational or for research. This laboratory is regulated under the Clinical Laboratory Improvement Amendments of 1998 (CLIA) as a qualified to perform high complexity clinical testing. 9 4:18 PM [facility] Embedded Images 4:18 PM T [facility] Fluid CEREBROSPINAL FLUID SPECIMEN / Unknown Collection / Unknown 05/25/2018 3:00 PM CDT 05/25/2018 4:01 PM CDT Zach Morin MD LAB - PATHOLOGY/CYTO LOGY ORDERABLES [facility] [address] [place] [address]. [place] [address], [facility] [phone] * PATHOLOGY SMEAR BODY FLUID (05/25/2018 11:30 AM CDT) Pathology Diff Review DIFFERENTIAL REVIEW - CONFIRMED DIFFERENTIAL REVIEW - CONFIRMED 05/25/2018 2:49 PM T [facility] Comment: Clinical history: Ms. Smith is a 38 afil-[id number] with a history of obesity, DM, and uncontrolled hypertension who was sent from ophthalmology for evaluation of sudden right eye vision impairment. Microscopic examination: Microscopic examination of the CSF confirms the differential counts and shows a hypercellular specimen. There are some mature plasma cells seen. There are also abundant small mature lymphocytes seen. No intra or extracellular bacteria are identified. These findings can be seen in inflammatory disorders affecting brain, however, are not diagnostic. Correlation with clinical and other laboratory tests is required. Chaz Jeong MD Cerebral spinal fluid CEREBROSPINAL FLUID SPECIMEN / Unknown Collection / Unknown 05/25/2018 11:30 AM CDT 05/25/2018 11:49 AM CDT Zach Morin MD LAB - PATHOLOGY/CYTO LOGY ORDERABLES [address] [phone] * NEUROMYELITIS OPTICA APQ4 IGG CSF W/RFLX (05/25/2018 11:30 AM CDT) Neuromyelitis Optica/AQP4 IgG CSF < 1:1 05/28/2018 5:16 PM CDT [facility] ([facility]) Comment: Aquaporin-4 Receptor Antibody, IgG is not detected. No further testing will be performed. INTERPRETIVE INFORMATION: Neuromyelitis Optica/AQP4-IgG, CSF Rflx Diagnosis of neuromyelitis optica (NMO) requires the presence of longitudinally extensive acute myelitis (lesions extending over 3 or more vertebral segments) and optic neuritis. Approximately 75 percent of patients with NMO express antibodies to the aquaporin-4 (AQP4) receptor. While the absence of AQP4 receptor antibodies does not rule out a diagnosis of NMO, presence of this antibody is diagnostic for NMO. See Compliance Statement B: [email or web address] Performed by [employer], [address] [place] [id number] [email or web address], Sahil Chin MD, Lab. Director Cerebral spinal fluid CEREBROSPINAL FLUID SPECIMEN / Unknown Collection / Unknown 05/25/2018 11:30 AM CDT 05/25/2018 11:52 AM CDT Zach Morin MD LAB - BODY FLUID ORD ERABLES [address] * DIFFERENTIAL MANUAL FLUID (05/25/2018 11:30 AM CDT) Segs % Fluid 7 % 05/25/2018 1:01 PM CDT [facility] Lymphocytes % Fluid 68 % 05/25/2018 1:01 PM CDT [facility] Monocytes % Fluid 4 % 05/25/2018 1:01 PM CDT [facility] Atypical Lymphs % Fluid 21 % 05/25/2018 1:01 PM CDT [facility] Cerebral spinal fluid CEREBROSPINAL FLUID SPECIMEN / Unknown Collection / Unknown 05/25/2018 11:30 AM CDT 05/25/2018 11:49 AM CDT Zach Morin MD LAB - BODY FLUID ORD ERABLES Performing Organization Address [facility]/ZIP Co de Phone Number [address] [phone] * GRAM STAIN (LAB ORDERED) (05/25/2018 11:30 AM CDT) Gram Stain Moderate White blood cells 05/25/2018 8:02 PM CDT [facility] Gram Stain No organisms seen 05/25/2018 8:02 PM CDT [facility] Microbiology Collection / Unknown 05/25/2018 11:30 AM CDT 05/25/2018 11:52 AM CDT Zach Morin MD LAB - MICROBIOLOGY O RDERABLES Performing Organization Address City/[facility]/ZIP Co de Phone Number [address] [phone] * CULTURE CSF+GRAM STAIN (05/25/2018 11:30 AM CDT) Culture No growth ESTEVAN 06/01/2018 3:34 AM CDT [facility] Gram Stain Rare Polymorphonuclear cells 06/01/2018 3:34 AM CDT [facility] Gram Stain No organisms seen 019 3:34 AM CDT [facility] Cerebral spinal fluid CEREBROSPINAL FLUID SPECIMEN / Unknown Collection / Unknown 05/25/2018 11:30 AM CDT 05/25/2018 11:52 AM CDT Zach Morin MD LAB - MICROBIOLOGY O RDERABLES Performing Organization Address City/[facility]/ZIP Co de Phone Number [facility] [address] [place] [address], [facility] [phone] * HERPES SIMPLEX 1+2 PCR CSF (05/25/2018 11:30 AM CDT) Herpes Simplex Virus 1 PCR CSF Not detected Not detected 05/25/2018 9:44 PM CDT [facility] Herpes Simplex Virus 2 PCR CSF Not detected Not detected 05/25/2018 9:44 PM CDT [facility] Microbiology CEREBROSPINAL FLUID SPECIMEN / Unknown Collection / Unknown 05/25/2018 11:30 AM CDT 05/25/2018 11:52 AM CDT Zach Morin MD LAB - MICROBIOLOGY O NARDA Performing Organization Address City/[facility] Co de Phone Number [facility] [address] [place] [address], [facility] [phone] * ANGIOTENSIN CONVERTING ENZYME CSF (05/25/2018 11:30 AM CDT) Angiotensin-Convert ing Enzyme CSF 0.9 0.0 - 2.5 U/L 05/28/2018 8:50 PM CDT [facility] ([facility]) Comment: This test was developed and its performance characteristics determined by [employer]. The U.S. Food and Drug Administration has not approved or cleared this test; however, FDA clearance or approval is not currently required for clinical use. The results are not intended to be used as the sole means for clinical diagnosis or patient management decisions. Performed by [employer], [address] [place] [address],[place] [address] [email or web address] Network, Sahil Chin MD, Lab. Director Cerebral spinal fluid CEREBROSPINAL FLUID SPECIMEN / Unknown Collection / Unknown 05/25/2018 11:30 AM CDT 05/25/2018 11:52 AM CDT Zach Morin MD LAB - BODY FLUID ORD ERABLES Performing Organization Address [facility] Co de Phone Number [facility]) [address] [place] [address] * MYELIN BASIC PROTEIN CSF (05/25/2018 11:30 AM CDT) Myelin Basic Protein 1.62 0.00 - 5.50 ng/mL 05/28/2018 7:09 PM CDT [facility] ([facility]) Comment: INTERPRETIVE INFORMATION: Myelin Basic Protein Test developed and characteristics determined by [employer]. See Compliance Statement D: [employer]/CS Performed by [facility] [employer], [address] [place] [address] [email or web address], Sahil Chin MD, Lab. Director Cerebral spinal fluid CEREBROSPINAL FLUID SPECIMEN / Unknown Collection / Unknown 05/25/2018 11:30 AM CDT 05/25/2018 11:52 AM CDT Zach Morin MD LAB - BODY FLUID ORD ERABLES Performing Organization Address [facility] Co de Phone Number [facility]) [address] [place] [address] * CELL COUNT W DIFFERENTIAL CSF (05/25/2018 11:30 AM CDT) Color Fluid Colorless Colorless, Straw 05/25/2018 12:51 PM CDT [facility] Clarity Fluid Clear Clear 05/25/2018 12:51 PM CDT [facility] Volume Fluid 4.0 mL 05/25/2018 12:51 PM CDT [facility] WBC Calculation Fluid 498 /uL 05/25/2018 12:51 PM CDT [facility] RBC Calculation 0 /uL 9 12:51 PM CDT [facility] Xanthochromia Fluid Negative Negative 05/25/2018 12:51 PM CDT [facility] Differential Manual Differential to follow. 05/25/2018 12:51 PM CDT [facility] Cerebral spinal fluid CEREBROSPINAL FLUID SPECIMEN / Unknown Collection / Unknown 05/25/2018 11:30 AM CDT 05/25/2018 11:49 AM CDT Zach Morin MD LAB - BODY FLUID ORD ERABLES Performing Organization Address [facility] Co de Phone Number [address] [phone] * PROTEIN CSF (05/25/2018 11:30 AM CDT) Protein CSF 20 15 - 45 mg/dL 05/25/2018 12:14 PM CDT [facility] Cerebral spinal fluid CEREBROSPINAL FLUID SPECIMEN / Unknown Collection / Unknown 05/25/2018 11:30 AM CDT 05/25/2018 11:51 AM CDT Zach Morin MD LAB - BODY FLUID ORD ERABLES Performing Organization Address [facility] Co de Phone Number [address] [phone] * (ABNORMAL) GLUCOSE CSF (05/25/2018 11:30 AM CDT) Glucose CSF 147(H) 40 - 70 mg/dL 05/25/2018 12:10 PM CDT [facility] Cerebral spinal fluid CEREBROSPINAL FLUID SPECIMEN / Unknown Collection / Unknown 05/25/2018 11:30 AM CDT 05/25/2018 11:54 AM CDT Zach Morin MD LAB - BODY FLUID ORD ERABLES Performing Organization Address [facility] Co de Phone Number [address] [phone] * SYPHILIS ANTIBODY CASCADING REFLEX (05/25/2018 4:03 AM CDT) Treponema pallidum Antibody Non-react javier Non-react javier 05/25/2018 5:33 AM CDT [facility] Comment: No Laboratory evidence of syphilis infection. Note: Circulating antibodies may be low or undetectable in early infection. If recent exposure is suspected, re-draw sample in 2-4 weeks and repeat testing. Blood BLOOD SPECIMEN / Unknown Lab Venipuncture / Unknown 05/25/2018 4:03 AM CDT 05/25/2018 4:43 AM CDT Namita Raymond MD LAB - SEROLOGY ORDER NAZ [facility] [address] [phone] * NEUROMYELITIS OPTICA ANTIBODY (05/25/2018 4:03 AM CDT) NMO Antibody IgG <1.5 0.0 - 3.0 U/mL 05/28/2018 5:08 PM CDT [facility] ([facility]) Comment: Negative: 0.0 - 3.0 Positive: >3.0 Blood BLOOD SPECIMEN / Unknown Lab Venipuncture / Unknown 05/25/2018 4:03 AM CDT 05/25/2018 4:43 AM CDT Narrative [facility] ([facility]) - 05/28/2018 5:08 PM CDT Performed at: [address] [place] [id number] Gripper Attacher: Negro Sullivan MD, Phone: [phone] Namita Raymond MD LAB - SEROLOGY ORDER NAZ Performing Organization Address City/[facility] Co de Phone Number [facility] ([facility]) [address] [place] [address], [place] * HCG BETA BLOOD QUANTITATIVE (05/25/2018 4:03 AM CDT) Beta-hCG Total Quantitative <2 <5 mIU/mL 05/25/2018 5:18 AM CDT [facility] Comment: HCG Numeric Result Interpretation: Non- Females: < 5 mIU/mL Post-Menopausal Females: < 7 mIU/mL Blood BLOOD SPECIMEN / Unknown Lab Venipuncture / Unknown 05/25/2018 4:03 AM CDT 05/25/2018 4:43 AM CDT Monroe Wood MD LAB - CHEMISTRY DELLGarrison [facility] Organization Address City/State/ZIP Co de Phone Number [address] [phone] * MRI ORBITS OR FACE WWO CONTRAST (05/24/2018 9:23 PM CDT) Anatomical Region Laterality Modality Head Magnetic Resonan ce 05/25/2018 7:38 AM CDT Impressions 05/25/2018 9:17 AM CDT IMPRESSION: 1. Unremarkable MRI findings of the brain and orbits. IDr. PRISCA have personally reviewed and interpreted this examination/study. This report was electronically signed by PRISCA SAEED on 05/25/2018 9:17 AM . Narrative 05/25/2018 9:17 AM CDT EXAMINATION: 1. Magnetic resonance imaging (MRI) of the brain without and with contrast 2. MRI of the orbits without and with contrast HISTORY: Blurry vision TECHNIQUE: MRI of the brain and orbits was performed prior to and following the uneventful administration of 10 mL intravenous gadolinium contrast according to standard protocol. FINDINGS: No prior study is available for comparison at the time of this dictation. Brain: Trace hyperintense T2 FLAIR signal normality in the periventricular white matter and beyond, unremarkable for patient age, presumably chronic small vessel ischemic etiology; note is made that this does not have appearance typical of multiple sclerosis. No diffusion restriction to suggest recent ischemic infarct or cytotoxic edema. No abnormal susceptibility to suspect intracranial bleed. No abnormal intracranial enhancement. Noted mild leftward deviation of the pituitary infundibulum, which may be seen as a normal variant finding. Pituitary gland has normal size, normal intrasellar location, and grossly normal signal. No mass effect or midline shift. Ventricles are normal in size, shape, and configuration. Usual vascular flow voids are present. Noted generalized low T1 marrow signal of the imaged cervical spine, more likely due to red marrow conversion or less likely infiltrative marrow process. Orbits: Globes appear unremarkable.. Optic nerve sheath complexes, optic nerves and optic chiasm have symmetric normal signal and normal caliber. The lacrimal glands appear unremarkable. Extraocular muscles appear symmetric and unremarkable. Superior ophthalmic veins appear symmetric and unremarkable. Region of cavernous sinuses appear unremarkable. Procedure Note Prisca Saeed MD - 05/25/2018 EXAMINATION: 1. Magnetic resonance imaging (MRI) of the brain without and withcontrast 2. MRI of the orbits without and with contrast HISTORY: Blurry vision TECHNIQUE: MRI of the brain and orbits was performed prior to and following the uneventful administration of 10 mL intravenous gadolinium contrast according to standard protocol. FINDINGS: No prior study is available for comparison at the time of this dictation. Brain: Trace hyperintense T2 FLAIR signal normality in the periventricularwhite matter and beyond, unremarkable for patient age, presumably chronicsmall vessel ischemic etiology; note is made that this does not haveappearance typical of multiple sclerosis. No diffusion restriction to suggestrecent ischemic infarct or cytotoxic edema. No abnormal susceptibility tosuspect intracranial bleed. No abnormal intracranial enhancement. Noted mild leftward deviation of the pituitary infundibulum, which maybe seen as a normal variant finding. Pituitary gland has normal size,normal intrasellar location, and grossly normal signal. No mass effect or midline shift. Ventricles are normal in size, shape,and configuration. Usual vascular flow voids are present. Noted generalized low T1 marrow signal of the imaged cervical spine,more likely due to red marrow conversion or less likely infiltrative marrow process. Orbits: Globes appear unremarkable.. Optic nerve sheath complexes, optic nerves and optic chiasm have symmetric normal signal and normal caliber. The lacrimal glands appear unremarkable. Extraocular muscles appear symmetric and unremarkable. Superior ophthalmic veins appear symmetric and unremarkable. Region of cavernous sinuses appear unremarkable. IMPRESSION: 1. Unremarkable MRI findings of the brain and orbits. Dr. PRISCA Llanes have personally reviewed and interpreted this examination/study. This report was electronically signed by PRISCA SAEED on 05/25/2018 9:17AM . Monroe Wood MD MR ORDERABLES * MRI BRAIN WWO CONTRAST (05/24/2018 9:23 PM CDT) Anatomical Region Laterality Modality Head Magnetic Resonan ce 05/25/2018 7:38 AM CDT Impressions 05/25/2018 9:17 AM CDT IMPRESSION: 1. Unremarkable MRI findings of the brain and orbits. Dr. PRISCA Llanes have personally reviewed and interpreted this examination/study. This report was electronically signed by PRISCA SAEED on 05/25/2018 9:17 AM . Narrative 05/25/2018 9:17 AM CDT EXAMINATION: 1. Magnetic resonance imaging (MRI) of the brain without and with contrast 2. MRI of the orbits without and with contrast HISTORY: Blurry vision TECHNIQUE: MRI of the brain and orbits was performed prior to and following the uneventful administration of 10 mL intravenous gadolinium contrast according to standard protocol. FINDINGS: No prior study is available for comparison at the time of this dictation. Brain: Trace hyperintense T2 FLAIR signal normality in the periventricular white matter and beyond, unremarkable for patient age, presumably chronic small vessel ischemic etiology; note is made that this does not have appearance typical of multiple sclerosis. No diffusion restriction to suggest recent ischemic infarct or cytotoxic edema. No abnormal susceptibility to suspect intracranial bleed. No abnormal intracranial enhancement. Noted mild leftward deviation of the pituitary infundibulum, which may be seen as a normal variant finding. Pituitary gland has normal size, normal intrasellar location, and grossly normal signal. No mass effect or midline shift. Ventricles are normal in size, shape, and configuration. Usual vascular flow voids are present. Noted generalized low T1 marrow signal of the imaged cervical spine, more likely due to red marrow conversion or less likely infiltrative marrow process. Orbits: Globes appear unremarkable.. Optic nerve sheath complexes, optic nerves and optic chiasm have symmetric normal signal and normal caliber. The lacrimal glands appear unremarkable. Extraocular muscles appear symmetric and unremarkable. Superior ophthalmic veins appear symmetric and unremarkable. Region of cavernous sinuses appear unremarkable. Procedure Note Prisca Saeed MD - 05/25/2018 EXAMINATION: 1. Magnetic resonance imaging (MRI) of the brain without and withcontrast 2. MRI of the orbits without and with contrast HISTORY: Blurry vision TECHNIQUE: MRI of the brain and orbits was performed prior to and following the uneventful administration of 10 mL intravenous gadolinium contrast according to standard protocol. FINDINGS: No prior study is available for comparison at the time of this dictation. Brain: Trace hyperintense T2 FLAIR signal normality in the periventricularwhite matter and beyond, unremarkable for patient age, presumably chronicsmall vessel ischemic etiology; note is made that this does not haveappearance typical of multiple sclerosis. No diffusion restriction to suggestrecent ischemic infarct or cytotoxic edema. No abnormal susceptibility tosuspect intracranial bleed. No abnormal intracranial enhancement. Noted mild leftward deviation of the pituitary infundibulum, which maybe seen as a normal variant finding. Pituitary gland has normal size,normal intrasellar location, and grossly normal signal. No mass effect or midline shift. Ventricles are normal in size, shape,and configuration. Usual vascular flow voids are present. Noted generalized low T1 marrow signal of the imaged cervical spine,more likely due to red marrow conversion or less likely infiltrative marrow process. Orbits: Globes appear unremarkable.. Optic nerve sheath complexes, optic nerves and optic chiasm have symmetric normal signal and normal caliber. The lacrimal glands appear unremarkable. Extraocular muscles appear symmetric and unremarkable. Superior ophthalmic veins appear symmetric and unremarkable. Region of cavernous sinuses appear unremarkable. IMPRESSION: 1. Unremarkable MRI findings of the brain and orbits. I, Dr. PRISCA SAEED have personally reviewed and interpreted this examination/study. This report was electronically signed by PRISCA SAEED on 05/25/2018 9:17AM . Namita Raymond MD MR ORDERABLES * HIV-1 HIV-2 ANTIGEN/ANTIBODY (05/24/2018 5:08 PM CDT) HIV Antigen/Antibod y 1 & 2 Non-reacti ve Non-react javier 05/24/2018 5:54 PM CDT [facility] Comment: Neither HIV-1 p24 Antigen nor HIV-1/HIV-2 Antibodies are detected. Blood BLOOD SPECIMEN / Unknown Venipuncture / Unknown 05/24/2018 5:08 PM CDT 05/24/2018 5:16 PM CDT Namita Raymond MD LAB - HEMATOLOGY ORD ERABLES [facility] [address] [place] [address] * Visual Almazan (05/24/2018 2:58 PM CDT) Anatomical Region Laterality Modality Other 05/24/2018 2:58 PM CDT Betsy Powell MD OPHTHALMOLOGY SERVIC ES ORDERABLES * OCT (05/24/2018 12:00 AM CDT) Anatomical Region Laterality Modality Other 05/24/2018 Betsy Powell MD OPHTHALMOLOGY SERVIC ES ORDERABLES * OPH OCT TEST [facility] (06/24/2017 2:28 PM CDT) Anatomical Region Laterality Modality Other 06/24/2017 2:28 PM CDT Adeline Wilde MD OPHTHALMOLOGY SERVIC ES ORDERABLES * MICROALBUMIN URINE RANDOM (10/30/2015 12:30 PM CDT) Albumin Random Urine >1,540.0 Not Established mcg/mL [facility] Urine specimen (specimen) 10/30/2015 12:30 PM CDT 10/30/2015 12:48 PM CDT Tessie Pritchard APRN-OFFICE SERVICES CLERK LAB - URINE C HEMISTRY ORDERABLES [address] [phone] * LIPID PROFILE (10/30/2015 12:18 PM CDT) Only the most recent of2 resultswithin the time period is included. Cholesterol Total 152 <200 mg/dL [facility] HDL 56 >40 mg/dL [facility] Comment: ATP III Classification of HDL Cholesterol: <40 mg/dL: Considered a major risk factor. >60 mg/dL: Considered a negative risk factor. LDL Calculated 76 <100 mg/dL [facility] Comment: ATP III Classification of LDL Cholesterol: <100 mg/dL: Optimal 100 - 129 mg/dL: Near Optimal/Above Optimal 130 - 159 mg/dL: Borderline High 160 - 189 mg/dL: High >190 mg/dL: Very High Triglycerides 98 <150 mg/dL [facility] Comment: ATP III Classification of Triglycerides: <150 mg/dL: Normal 150 - 199 mg/dL: Borderline High 200 - 400 mg/dL: High >500 mg/dL: Very High Blood specimen (specimen) BLOOD SPECIMEN / Unknown 10/30/2015 12:18 PM CDT 10/30/2015 12:48 PM CDT Tessie Dolan Macho MUNOZ-OFFICE SERVICES CLERK LAB - INSOLE AND OUTSOLE PREPARER RY ORDERABLES [address] [phone] * GLUCOSE - POINT OF CARE (AMB) [facility] (04/10/2015 9:21 AM ZONING ADMINISTRATOR) Only the most recent of2 resultswithin the time period is included. Glucose POCT 214 mg/dL [facility] Capillary blood specimen (specimen) 04/10/2015 9:21 AM ZONING ADMINISTRATOR Tessie Pritchard APRN-OFFICE SERVICES CLERK LAB - POINT O F CARE ORDERABLES Performing Organization Address [facility]/ZIP Co de Phone Number [facility] * INSULIN ANTIBODY (09/12/2014 3:01 PM CDT) Insulin Antibody <5.0 uU/mL [facility] Comment: This test is also known as insulin autoantibody or IAA. Reference Range: <5.0 Negative > or = 5.0 Positive Blood specimen (specimen) BLOOD SPECIMEN / Unknown 09/12/2014 3:01 PM CDT 09/12/2014 3:35 PM CDT Narrative [facility] ([place]) - 09/21/2014 6:15 AM CDT Performed at: - [facility] [address] [place] [address] [id number] Gripper Attacher: Demarco Henderson MD, Phone: [phone] Tessie Pritchard APRN-OFFICE SERVICES CLERK LAB - INSOLE AND OUTSOLE PREPARER RY ORDERABLES [facility] ([place]) * GLUTAMIC ACID DECARBOXYLASE ([place]) ANTIBODY (09/12/2014 3:01 PM CDT) HAYLEY-65 <1.0 0.0 - 1.5 U/mL [facility] ([facility]) Blood specimen (specimen) BLOOD SPECIMEN / Unknown 09/12/2014 3:01 PM CDT 09/12/2014 3:35 PM CDT Narrative [facility] ([facility]) - 09/15/2014 5:15 PM CDT Performed at: [address] [place] [address] [id number] Gripper Attacher: Sekou Dent MD, Phone: [phone] Tessie Pritchard FINANCIAL UNDERWRITER-OFFICE SERVICES CLERK LAB - SEROLOG Y ORDERABLES Performing Organization Address City/[facility]/ZIP Co de Phone Number [facility]) * TISSUE TRANSGLUTAMINASE AB IGG (06/29/2014 4:51 PM CDT) [facility] TTG Antibody IgG 2 0 - 5 U/mL [facility]) Comment: Negative 0 - 5 Weak Positive 6 - 9 Positive >9 Blood specimen (specimen) BLOOD SPECIMEN / Unknown 06/29/2014 4:51 PM CDT 06/29/2014 5:26 PM CDT Narrative [facility]) - 07/01/2014 3:12 PM CDT Performed at: [address] [place] [address] [id number] Gripper Attacher: Clemente Wiley PhD, Phone: [phone] Finn Clemens MD LAB - CHEMISTRY [facility] ([facility]) * C-PEPTIDE (06/29/2014 4:51 PM CDT) [facility] C-Peptide 1.1 1.1 - 4.4 ng/mL [facility]) Comment:C-Peptide reference interval is for fasting patients. Blood specimen (specimen) BLOOD SPECIMEN / Unknown 06/29/2014 4:51 PM CDT 06/29/2014 5:26 PM CDT Narrative [facility] ([place]) - 07/02/2014 6:41 AM CDT Performed at: [address] [id number] Gripper Attacher: Clemente Wiley PhD, Phone: [phone] Finn Clemens MD LAB - CHEMISTRY [facility] Performing Organization Address City/[facility]/ZIP Co de Phone Number [facility]) * (ABNORMAL) HEMOGLOBIN A1C (06/29/2014 4:51 PM CDT) Hemoglobin A1c 11.1(H) 4.4 - 6.3 % [facility] Estimated Average Glucose 272 mg/dL [facility] Comment: HbA1c Interpretation: Treatment target values recommended by ADA and other clinical organizations, not reference intervals, should be used to evaluate metabolic control in patients. Treatment Target Values: Normal : < 5.7% Pre-diabetes: 5.7-6.4% Diabetes: > 6.4% Test results diagnostic of diabetes should be repeated for confirmation. The Tosoh G8 assay for the measurement of HbA1c is a National Glycohemoglobin Standardization Program (NGSP)certified method. Results for patients with HbE disease should be interpreted with caution as this hemoglobinopathy has been shown to interfere with the Tosoh G8 assay. Blood specimen (specimen) BLOOD SPECIMEN / Unknown 06/29/2014 4:51 PM CDT 06/29/2014 5:25 PM CDT Finn Clemens MD LAB - CHEMISTRY [facility] [address] [phone] * VITAMIN B12 (06/29/2014 4:51 PM CDT) Vitamin B12 520 213 - 816 pg/mL [facility] Blood specimen (specimen) BLOOD SPECIMEN / Unknown 06/29/2014 4:51 PM CDT 06/29/2014 5:26 PM CDT Finn Clemens MD LAB - CHEMISTRY [facility] [address] [place] [address], [facility] [phone] Care Teams Costume Rental Clerk Relationship Specialty Start Date End Date Jessie Dickson, FINANCIAL UNDERWRITER-OFFICE SERVICES CLERK [address], [place] [address] PCP - General 06/30/14
--- OUTSIDE RECORDS SUMMARY | 2024-04-01 01:04 | XMS_ITS | Clinical Summary ---
Author Organization [facility] Address [address] [address] Care Team Providers Care Flight Control Specialist Name Role Phone Jessie Dickson INTEGRATION ARCHITECT-[place] Primary Care Pro vider Source Comments [facility],non-owned Affiliates and Associated Physician Practices is amultiple site organization consisting of ambulatory clinics and hospital sitesin [place], [place], [place] and [place]. This disclosure is being madepursuant to the Care Everywhere program and may not contain all information available regarding this patient. 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 Type 2 diabetes mellitus 06/21/2010 Family History Medical History Relation Name Comments Hypertension Father Diabetes Mother Relation Name Status Comments Father Mother Social History Tobacco [...] Comments Blood Pressure 145/85 02/05/2022 12:20 PM MANUFACTURING SALES REPRESENTATIVE dr irizarry aware; ok to d/cv Pulse 74 02/05/2022 11:55 AM MANUFACTURING SALES REPRESENTATIVE Temperature 36.8 C (98.2 F) 09/13/2019 8:22 AM CDT Respiratory Rate 12 02/05/2022 11:5 0 AM MANUFACTURING SALES REPRESENTATIVE Oxygen Saturation 100% 02/05/2022 11: 55 AM MANUFACTURING SALES REPRESENTATIVE Inhaled Oxygen Concentration - - Weight 108.9 kg (240 lb) 09/13/2019 8:2 2 AM CDT Height 160 cm (5' 3 ) 09/13/2019 8:22 AM CDT Body Mass Index 42.51 09/13/2019 8:22 AM CDT Plan of Treatment Health Maintenance Due Date Last Done Comments COLOGUARD (AGES 45-75) - COLON CA SCREENING 1978 COLON MONITORING 1978 COLONOSCOPY - COLON CA SCREENING 1978 CT COLONOGRAPHY - COLON CA SCREENING 1978 Colorectal Cancer Screening 1978 FIT - COLON CA SCREENING 1978 FLEX SIG - COLON CA SCREENING 1978 MAMMOGRAM 1978 MEDICARE AWV 12 MONTHS 1978 PAP SMEAR 1978 DTAP/TDAP/TD VACCINES (1 - Tdap) 1997 PNEUMOCOCCAL VACCINE (1 of 2 - PCV) 1997 HEPATITIS B VACCINE (1 of 3 - Risk Dialysis 4-dose series) 1998 DIABETES-STATIN 2018 DIABETES-FOOT EXAM WITH MONOFILAMENT 11/10/2018 11/10/2017, 11/10/2017 DIABETES RETINOPATHY SCREENING 09/22/2019 09/21/2018, 05/24/2018, 06/24/2017, Additional history exists DIABETES-HGB A1C 08/22/2022 05/23/2022, 09/2021, 2021, Additional history exists COVID-19 VACCINE ( - season) 2023 INFLUENZA VACCINE (#1) 2023 DEPRESSION SCREENING 02/24/2024 ZOSTER VACCINE (1 of 2) 2028 HIV SCREENING Completed 05/24/2018 HEPATITIS C SCREENING Completed 05/28/2018 HIB VACCINE Aged Out No longer eligi ble based on patient's age to complete this topic HPV VACCINE Aged Out No longer eligi ble based on patient's age to complete this topic MENINGOCOCCAL (Group B) VACCINE Aged Out No longer eligible based on patient's age to complete this topic MENINGOCOCCAL VACCINE Aged Out No vincent ragini eligible based on patient's age to complete this topic Procedures Procedure Name Priority Date/Time Associated Diagnosis [...] CARE (AMB) [facility] (11/01/2018 10:11 AM CDT) [facility] Hemoglobin A1c POCT 8.5% BLOOD SPECIMEN / Unknown 11/01/2018 10:11 AM CDT Tessie Magdaleno Carlitosliv INTEGRATION ARCHITECT-[place] LAB - POINT O F CARE ORDERABLES * HEPATITIS C AB SCREEN RFLX NAAT QUANT (05/28/2018 12:13 PM CDT) [facility] Hepatitis C Antibody Non-react javier Non-reac tive 05/28/2018 1:18 PM CDT [facility] Comment: Hepatitis C Antibody screen [...] Thornton MD LAB - CHEMISTRY [facility] [address] [phone] * HIV-1 HIV-2 ANTIGEN/ANTIBODY (05/24/2018 5:08 PM CDT) [facility] HIV Antigen/Antibod y 1 & 2 Non-reacti ve Non-react javier 05/24/2018 5:54 PM CDT [facility] Comment: Neither HIV-1 p24 Antigen nor HIV-1/HIV-2 Antibodies are detected. Blood BLOOD SPECIMEN / Unknown Venipuncture / Unknown 05/24/2018 5:08 PM CDT 05/24/2018 5:16 PM CDT Namita Raymond MD LAB - HEMATOLOGY [facility] [address] [phone] from Last 3 Months or Most Recently Relevant to Health Maintenance Advance Directives * Full Code (Latest Code Status on File) Date Activated Date Inactivated Comments 05/25/2018 12:57 AM 05/28/2018 5:22 PM * Full Code Date Activated Date Inactivated Comments 05/24/2018 6:24 PM 05/25/2018 12:57 AM Care Teams Flight Control Specialist Relationship Specialty Start Date End Date Jessie Dickson APRN-[place] [address] [place] [phone] PCP - General 06/30/14
--- OUTSIDE RECORDS SUMMARY | 2024-04-01 01:05 | XMS_ITS | Data Portability ---
[facility] Organization [facility] Address [address] [place] [address] Care Team Providers Care Aviation Medicine Specialist Name Role Phone DEYVI ROSALES OTHER JESSIE CROCKETT Insole Channeler [facility] Communications Billing Analyst BETH MARTE Broom Stitcher [employer] Billing Analyst Assessment No assessment recorded. Plan of Treatment Reminders Order Date Submit Date Provider Last Modified By Organization Details Last Modified Time Details Appointments None recorded. Lab HbA1c (hemoglobin A1c), blood 2022 023 [email or web address] In-Office Order, Internal Use Only DO Not Attach Compendium DO Not Attach Compendium, Do Not Delete/merge, [id number] 3 15:31:49 glucose, fingerstick , blood 2022 023 [email or web address] In-Office Order, Internal Use Only DO Not Attach Compendium DO Not Attach Compendium, Do Not Delete/merge, [id number] 3 15:31:48 HbA1c (hemoglobin A1c), blood 2023 024 [email or web address] In-Office Order, Internal Use Only DO Not Attach Compendium DO Not Attach Compendium, Do Not Delete/merge, [id number] 4 12:47:19 glucose, fingerstick , blood 2023 024 [email or web address] In-Office Order, Internal Use Only DO Not Attach Compendium DO Not Attach Compendium, Do Not Delete/merge, [id number] 4 12:47:21 CMP, serum or plasma 2023 024 MAHAMED [facility], [address], [address], [place], [address], 4 23:07:49 albumin/cre atinine, mass ratio, urine 2023 024 MAHAMED [facility], [address], [address], [place], [address], 4 10:15:48 TSH, ultra-sensi tive, serum 2023 024 MAHAMED [facility], [address], [address], [place], [address], 4 10:15:48 CBC 2023 024 MAHAMED [facility], [address], [address], [place], [address], 4 23:07:50 lipid panel, serum 2023 024 MAHAMED [facility], [address], [address], [place], [address], 4 23:07:48 vitamin D, 25-hydroxy, total, serum 2023 024 MAHAMED [facility], [address], [address], [place], [address], 4 10:15:50 Referral neurologist referral - Head CT showed small region of decreased attenuation at left occipital lobe suspicious for relatively recent, potentially acute infarct which is new since 01/06/2022. The patient had no focal deficits or weakness. 2022 023 MAHAMED Not available 3 11:17:15 Procedures None recorded. Surgeries None recorded. Imaging MAMMO, screening, bilateral 2022 023 [email or web address] Not available 4 11:11:09 Medication Orders aspirin 81 mg tablet,juan yed release 2022 023 [facility], [address] [place], [address], 3 14:50:06 Lipitor 80 mg tablet 2022 023 [facility], [address] [place], [address], 3 14:56:45 Colace 100 mg capsule 2022 023 [facility], [address] [place], [address], 3 15:32:12 polyethylen e glycol 3350 17 gram/dose oral powder 2022 023 [facility], [address] [place], [address], 3 20:15:56 fluticasone propionate 50 mcg/actuati on nasal spray,suspe nsion 2022 023 [facility], [address] [place], [address], 3 15:32:14 montelukast 10 mg tablet 2022 023 [facility], [address] [place], [address], 3 15:32:14 Kym Allergy 180 mg tablet 2022 023 [facility], [address] [place], [address], 3 15:32:13 Lantus Solostar U-100 Insulin 100 unit/mL (3 mL) subcutaneou s pen 2022 023 [facility] [address] [place] [address], [address], 3 15:32:15 Admelog SoloStar U-100 Insulin lispro 100 unit/mL subcutaneou s pen 2022 024 [facility], [address] [place] [address], [address], 4 12:43:37 fluticasone propionate 50 mcg/actuati on nasal spray,suspe nsion 2023 024 [facility] [address] [place] [address], [address], 4 12:47:15 montelukast 10 mg tablet 2023 024 [facility] [address] [place] [address], [address], 4 12:47:16 Kym Allergy 180 mg tablet 2023 024 [facility], [address] [place] [address], [address], 4 12:47:15 Colace 100 mg capsule 2023 024 [facility], [address] [place], [address], 4 12:47:15 Lantus Solostar U-100 Insulin 100 unit/mL (3 mL) subcutaneou s pen 2023 024 [facility], [address] [place] [address], [address], 4 12:47:15 OneTouch Ultra Test strips 2023 024 [facility] [address] [place], [address], 4 15:31:16 gabapentin 100 mg capsule 2023 024 [facility] [address] [place], [address], 4 12:47:15 Diflucan 150 mg tablet 2023 024 [facility] [address] [place], [address], 4 12:47:15 gabapentin 100 mg capsule 2023 024 [facility] [address] [place], [address], 20:08:16 Patient TargetsNo targets recorded. Patient Instructions Encounter Date Encounter Id Patient Instructions Last Modified By Organization Details Last Modified Time 06/11/2022 [id number] A healthy lifest yle: care instructions [email or web address] Not available 06/11/2022 14:47:26 body mass index: care instructions [email or web address] Not available 06/11/2022 14:47:26 learning about healthy weight [email or web address] Not available 06/11/2022 14:47:26 1. if you do not hear about your appointment in the next two weeks call office to check on appt status 2. if you cant make a specialty appointment call and cancel appointment and reschedule because if you dont that specialist may not see you again. 1. Si usted no escucha nada acercaa de carvajal ty con el especialista en las siguientes dos semanas llame aqui a la oficina para chequear acerca de carvajal ty. 2. Si usted no puede ir a carvajal ty con el especialista llame a la oficina del especialista y cancele y programe kian nueva ty pues si no lo hace no lo veran mas en sahara oficina yarauz Not available 06/11/2022 15:17:28 continue present meds start taking Atorvastatin 80mg as directed if headache recurrence or neurological deficits/weakness to ER immediately continue dialysis yarauz Not available 06/11/2022 15:17:16 10/06/2022 [id number] allergies: care instructions yarauz Not available 10/06/2022 15:31:49 managing your allergies: care instructions yarauz Not available 10/06/2022 15:31:49 When You Want to Lose Weight: Care Instructions [email or web address] Not available 10/06/2022 15:31:49 gastroesophageal reflux disease (GERD): care instructions yarauz Not available 10/06/2022 15:31:49 A healthy lifest yle: care instructions yarauz Not available 10/06/2022 15:31:49 type 2 diabetes: care instructions yarauz Not available 10/06/2022 15:31:48 body mass index: care instructions yarauz Not available 10/06/2022 15:31:49 learning about healthy weight yarauz Not available 10/06/2022 15:31:49 call in report w ith fasting and pp blood sugars yarauz Not available 10/06/2022 15:39:40 Uncontrolled Hypertension potential risks, heart attack, , stroke, kidney failure etc. Hypertension is the silent Killer Take your Hypertension medication daily keep appointments stop concentrated sugars--follow 1500 meal plan exercise 50-60 minutes daily on most days see eye doctor once a year see dentist every 6 months Uncontrolled Diabetes Mellitus complications , blindness, kidney failure, amputations etc. Take your diabetes medication daily check blood sugars fasting and post prandial --keep a log--bring to next appointment stop concentrated sugars--follow 1500 meal plan exercise 50-60 minutes daily on most days check your feet for sores, cuts, etc., see eye doctor once a year see dentist every 6 months emotional support consider counseling/antipsych iatric medicine yarauz Not available 10/06/2022 15:08:09 02/03/2023 [id number] influenza (flu) vaccine: care instructions yarauz Not available 02/03/2023 12:29:34 learning about breast cancer screening yarauz Not available 02/03/2023 12:25:08 body mass index: care instructions yarauz Not available 02/03/2023 12:25:08 learning about healthy weight yarauz Not available 02/03/2023 12:25:08 get mammogram an d ultrasound done as directed SBE teaching/handout Calcium in diet plus vitamin D daily exercise monitor diet see dentist every 6 months see board catcher every 1-2 years vaccine yarauz Not available 02/03/2023 12:29:16 2023 [id number] allergies: care instructions yarauz Not available 2023 12:47:10 managing your allergies: care instructions yarauz Not available 2023 12:47:09 When You Want to Lose Weight: Care Instructions yarauz Not available 2023 12:47:09 A healthy lifest yle: care instructions yarauz Not available 2023 12:47:10 type 2 diabetes: care instructions yarauz Not available 2023 12:47:09 gastroesophageal reflux disease (GERD): care instructions yarauz Not available 2023 12:47:10 body mass index: care instructions yarauz Not available 2023 12:47:09 learning about healthy weight yarauz Not available 2023 12:47:10 call in report w ith fasting and pp blood sugars yarauz Not available 2023 12:27:05 Uncontrolled Hypertension potential risks, heart attack, , stroke, kidney failure etc. Hypertension is the silent Killer Take your Hypertension medication daily keep appointments stop concentrated sugars--follow 1500 meal plan exercise 50-60 minutes daily on most days see eye doctor once a year see dentist every 6 months Uncontrolled Diabetes Mellitus complications , blindness, kidney failure, amputations etc. Take your diabetes medication daily check blood sugars fasting and post prandial --keep a log--bring to next appointment stop concentrated sugars--follow 1500 meal plan exercise 50-60 minutes daily on most days check your feet for sores, cuts, etc., see eye doctor once a year see dentist every 6 months emotional support consider counseling/anti psychiatric medicine yarauz Not available 2023 12:31:18 09/08/2023 [id number] A healthy lifest yle: care instructions [email or web address] Not available 09/08/2023 20:08:14 Consider use of rae, kenyon, peppermint, coriander, fennel and cayenne pepper to stimulate your appetite. Lemon helps with limited taste. Please talk to your providers about being hungry but not having desire to eat. [email or web address] Not available 09/08/2023 20:08:14 Reason for Referral Neurologist Referral for His tory of cerebrovascular accident History of cerebrovascular accident Head CT showed small region of decreased attenuation at left occipital lobe suspicious for relatively recent, potentially acute infarct which is new since 01/06/2022. The patient had no focal deficits or weakness. Referring Physician: Jessie Crockett, Family Medicine, Encounter Date: 06/11/2022 Results Created Date Observation Date Name Description Value Unit Range Abnormal Flag Note LastModifiedBy Organization Detail LastModifiedTime 10/07/1910/06/2022 HbA1c (hemo globi n A1c), blood HbA1c 8 Not Available In-Office Order Internal Use Only DO Not Attach Compendium DO Not Attach Compendium, Do Not Delete/merge, [id number] 10/06/2022 14:28:33 10/07/19 23 10/06/2022 gluco se, finge rstic k, blood Blood Glucose: mg/dl 162 Not Available In-Off ice Order Internal Use Only DO Not Attach Compendium DO Not Attach Compendium, Do Not Delete/merge, [id number] 10/06/2022 14:28:35 03/12/19 24 2023 LIPID PANEL cholesterol, total 171 mg/dL 100-19 9 Not Available [facility] Department [address] [place], [address], 2023 23:07:48 03/12/19 24 2023 LIPID PANEL triglyceride s 78 mg/dL 0-149 Not Available [facility] Department [address] [place], [address], 2023 23:07:48 03/12/19 24 2023 LIPID PANEL HDL cholesterol 70 mg/dL 40-999 Not Available [facility] Department [address] [place], [address], 2023 23:07:48 03/12/19 24 2023 LIPID PANEL VLDL cholesterol dwayne 16 mg/dL 5-40 Not Available [facility] Department [address] [place], [address], 2023 23:07:48 03/12/19 24 2023 LIPID PANEL LDL chol calc (nih) 96 mg/dL 0-99 Not Available [facility] Department [address] [place], [address], 2023 23:07:48 03/12/19 24 2023 COMP. METAB OLIC PANEL (14) glucose 101 mg/dL 70-99 above high normal Not Available [facility] Department [address] [place] [address], [address], 2023 23:07:49 03/12/19 24 2023 COMP. METAB OLIC PANEL (14) BUN 46 mg/dL 6-24 above high normal Not Available [facility] Department [address] [place], [address], 2023 23:07:49 03/12/19 24 2023 COMP. METAB OLIC PANEL (14) creatinine 12.18 mg/dL 0.76-1 .27 panic high RESUL TS VERIF IED AND MCCLENDON D TO DR MAYRA TALLEY ON BY Jesse bazzi, CPT AT 2108 ON 03/12. Not Available [facility] Department [address] [place], [address], 2023 23:07:49 03/12/19 24 2023 COMP. METAB OLIC PANEL (14) eGFR 4 >=60 below low normal Units for eGFR value s are mL/mi n/1.7 3 The eGFR Calcu latio n has not been valid ated for patie nts under the age of 18. If test resul ts are displ ayed for a patie nt under the age of 18, disre tao that value . Not Available [facility] Department [address] [place] [address], [address], 2023 23:07:49 03/12/19 24 2023 COMP. METAB OLIC PANEL (14) BUN/creatini ne ratio 4 9-23 below low normal Not Available [facility] Department [address] [place], [address], 2023 23:07:49 03/12/19 24 2023 COMP. METAB OLIC PANEL (14) sodium 142 mmol/ L 134-14 4 Not Available [facility] Department [address] [place] [address], [address], 2023 23:07:49 03/12/19 24 2023 COMP. METAB OLIC PANEL (14) potassium 4.6 mmol/ L 3.5-5. 2 Not Available [facility] Department [address] [place] [address], [address], 2023 23:07:49 03/12/19 24 2023 COMP. METAB OLIC PANEL (14) chloride 102 mmol/ L 96-106 Not Available [facility] Department [address] [place] [address], [address], 2023 23:07:49 03/12/19 24 2023 COMP. METAB OLIC PANEL (14) carbon dioxide, total 26 mmol/ L 20-29 Not Available [facility] Department [address] [place] [address], [address], 2023 23:07:49 03/12/19 24 2023 COMP. METAB OLIC PANEL (14) calcium 9.6 mg/dL 8.7-10 .2 Not Available [facility] Department [address] [place] [address], [address], 2023 23:07:49 03/12/19 24 2023 COMP. METAB OLIC PANEL (14) protein, total 7.0 g/dL 6.0-8. 5 Not Available [facility] Department [address] [place] [address], [address], 2023 23:07:49 03/12/19 24 2023 COMP. METAB OLIC PANEL (14) albumin 3.7 g/dL 3.9-4. 9 below low normal Not Available [facility] Department [address] [place] [address], [address], 2023 23:07:49 03/12/19 24 2023 COMP. METAB OLIC PANEL (14) globulin, total 3.3 g/dL 1.5-4. 5 Not Available [facility] Department [address] [place] [address], [address], 2023 23:07:49 03/12/19 24 2023 COMP. METAB OLIC PANEL (14) A/G ratio 1.0 1.2-2. 2 below low normal Not Available [facility] Department [address] [place] [address], [address], 2023 23:07:49 03/12/19 24 2023 COMP. METAB OLIC PANEL (14) bilirubin, total 0.2 mg/dL 0.0-1. 2 Not Available [facility] Department [address] [place] [address], [address], 2023 23:07:49 03/12/19 24 2023 COMP. METAB OLIC PANEL (14) alkaline phosphatase 161 IU/L 44-121 above high normal Not Available [facility] Department [address] [place] [address], [address], 2023 23:07:49 03/12/19 24 2023 COMP. METAB OLIC PANEL (14) AST (SGOT) 17 IU/L 0-40 Not Available [facility] Department [address] [place], [address], 2023 23:07:49 03/12/19 24 2023 COMP. METAB OLIC PANEL (14) ALT (SGPT) 15 IU/L 0-32 Not Available [facility] Department [address] [place], [address], 2023 23:07:49 03/12/19 24 2023 CBC, NO DIFFE RENTI AL/PL ATELE T WBC 9.4 x10e3 /uL 3.4-10 .8 Not Available [facility] Department [address] [place], [address], 2023 23:07:50 03/12/19 24 2023 CBC, NO DIFFE RENTI AL/PL ATELE T RBC 4.11 x10e6 /uL 3.77-5 .28 Not Available [facility] Department [address] [place], [address], 2023 23:07:50 03/12/19 24 2023 CBC, NO DIFFE RENTI AL/PL ATELE T hemoglobin 10.9 g/dL 11.1-1 5.9 below low normal Not Available [facility] Department [address] [place], [address], 2023 23:07:50 03/12/19 24 2023 CBC, NO DIFFE RENTI AL/PL ATELE T hematocrit 36.5 % 34.0-4 6.6 Not Available [facility] Department [address] [place], [address], 2023 23:07:50 03/12/19 24 2023 CBC, NO DIFFE RENTI AL/PL ATELE T MCV 89 fL 79-97 Not Available [facility] Department [address] [place], [address], 2023 23:07:50 03/12/19 24 2023 CBC, NO DIFFE RENTI AL/PL ATELE T MCH 26.5 pg 26.6-3 3.0 below low normal Not Available [facility] Department [address] [place], [address], 2023 23:07:50 03/12/19 24 2023 CBC, NO DIFFE RENTI AL/PL ATELE T MCHC 29.9 g/dL 31.5-3 5.7 below low normal Not Available [facility] Department [address] [place], [address], 2023 23:07:50 03/12/19 24 2023 CBC, NO DIFFE RENTI AL/PL ATELE T RDW 13.8 % 11.5-1 4.5 Not Available [facility] Department [address] [place], [address], 2023 23:07:50 03/12/19 24 2023 CBC, NO DIFFE RENTI AL/PL ATELE T NRBC 0 % 0-0 Not Available [facility] Department [address] [place], [address], 2023 23:07:50 03/12/19 24 03/13/2023 ALBUM IN/CR EATIN INE RATIO ,URIN E creatinine, urine 104.7 mg/dL notest ab. Not Available [facility] ([facility]) [address] [facility] [facility], [place], [address], 03/13/2023 10:15:47 03/12/19 24 03/13/2023 ALBUM IN/CR EATIN INE RATIO ,URIN E albumin, urine 511.4 ug/mL notest ab. Resul ts confi rmed on dilut ion. Not Available [facility] ([facility]) [address] [facility], [place], [address], 03/13/2023 10:15:47 03/12/19 24 03/13/2023 ALBUM IN/CR EATIN INE RATIO ,URIN E alb/creat ratio 488 mg/g_ creat 0-29 above high normal Kimberly l: 0 - 29 Moder ately incre ased: 30 - 300 Sever naima incre ased: >300 Not Available [facility] ([facility]) [address] [facility] [facility], [place], [address], 03/13/2023 10:15:47 03/12/19 24 03/13/2023 TSH RFX ON ABNOR MAL TO FREE T4 TSH 2.130 uIU/m L 0.450- 4.500 Not Available [facility] ([facility]) [address] [facility], [place], [address], 03/13/2023 10:15:48 03/12/19 24 03/13/2023 VITAM IN D, 25-HY DROXY vitamin D, 25-hydroxy 15.4 NG/mL 30.0-1 00.0 below low normal Vitam in D defic iency has been defin ed by the Insti tute of Medic ine and an Endoc rine Socie ty pract ice guide line as a level of serum 25-OH vitam in D less than 20 ng/mL (1,2) . The Endoc rine Socie ty went on to furth er defin e vitam in D insuf ficie ncy as a level betwe en 21 and 29 ng/mL (2). 1. IOM (Inst itute of Medic ine). 2010. Dieta ry refer ence intak es for calci um and D. Leobardo karimi [place]: The [facility] Press . 2. Jarrett boswell MF, Hailee burgess [place], Alma Delia off-F errar i BAUMANN, et al. Evalu ation , treat ment, and preve ntion of vitam in D defic iency : an Endoc rine Socie ty clini dwayne pract ice guide line. JCEM. 2010; 96(7) :1911 -30. Not Available [facility] ([facility]) [address], [place], [address], 03/13/2023 10:15:49 03/12/19 24 2023 HbA1c (hemo globi n A1c), blood HbA1c 6.4 Not Available In-Office Order Internal Use Only DO Not Attach Compendium DO Not Attach Compendium, Do Not Delete/merge, [id number] 2023 11:51:02 03/12/19 24 2023 gluco se, finge rstic k, blood Blood Glucose: mg/dl 178 Not Available In-Off ice Order Internal Use Only DO Not Attach Compendium DO Not Attach Compendium, Do Not Delete/merge, [id number] 2023 11:51:04 06/16/19 23 06/15/2022 XR, abdom en No observ ation record ed. [address] [facility], [place], [address], 10/06/2022 15:11:10 06/16/19 23 06/14/2022 CT, abdom en + pelvi s, w/o contr ast No observ ation record ed. [address], [place], [address], 10/06/2022 15:11:10 11/02/19 23 11/01/2022 XR, chest , 1 view No observ ation record ed. [address], [place], [address], 11/05/2022 17:56:22 01/10/20 23 12/25/2022 MRI, abdom en + pelvi s, w/wo contr ast No observ ation record ed. [facility] - Gynecologic Oncology [address] [place] [address], [address], 01/12/2023 10:36:39 03/19/19 24 03/17/2023 MAMMO , scree lexx, bilat eral No observ ation record ed. [facility] Him Department [address], [place], [address], 03/24/2023 14:16:33 06/19/1906/19/2023 US, suyapale x, arter ial, upper extre mity No observ ation record ed. [facility] [address], [place], [address], 07/02/2023 11:53:57 Result Notes None recorded. Problems Name Problem SNOMED Code Status Onset Date Resolution Date Notes Provider Name and Address Organization Details Recorded Time Hyperten sive disorder 11263793 Active 2018 Giselle remy [place], [place] [facility] 2 10:42:15 Chronic kidney disease stage 3 706088199 Completed 201804/18/2021 follows with Ivonne Marte at [facility] Danica Alvarez RN [place], [place] [facility] 2 12:05:25 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 955492369 Active 2021 Giselle remy [place] [facility] 2 10:41:58 Vitamin D deficien cy 98378450 Active 2021 Giselle rem[place] [facility] 2 10:42:32 Family history of malignan t neoplasm of breast in first degree relative 226908047 Active 2021 KRISTY Topete- Attn: Kerry galarza,[address] [facility], [place], [address], [place] [facility] 2 11:34:39 Cyst of left ovary 60291431486 840727 Active 2021 Giselle rem[place] [facility] 2 10:45:06 Morbid obesity 771825142 Active 2021 DENNY Ch[place] [facility] 2 10:42:28 Pelvic mass 02006091 Active 2021 KRISTY Topete-BC Attn: Accountin g,[address] [facility], [place], [address], [place] [facility] 2 11:34:39 Gastroes ophageal reflux disease 436410410 Active 2020 Giselle Betakarlyour t, [place] [facility] 2 10:42:49 Irritabl e bowel syndrome 80048660 Active 2020 Giselle Betancour t, [place] [facility] 2 10:44:10 Chronic constipa tion 109196121 Active 2021 Giselle Betancour t, [place] [facility] 2 10:42:07 History of optic neuritis 56794770747 008803 Active 2021 Giselle Betancour t, [place] [facility] 2 10:44:00 Bereavem ent 69309576 Active 2021 Jessie Crockett [facility] Attn: Kerry g,[address] [facility], [place], [address], [place] [facility] 2 12:54:36 Body mass index 30+ - obesity 519768416 Active 2021 Danica Al[place] [facility] 3 14:27:16 History of cerebrov ascular accident 307065091 Active 2022 [facility] Attn: Accountin g,[address] [facility], [place], [address], [place] [facility] 3 15:13:27 Mass of right breast 11797302058 162147 Active 2022 Jessie Crockett [facility] Attn: Accountin g,[address] [facility], [place], [address], [place] [facility] 3 12:28:12 Obesity 603463173 Active 2023 Jessie Crockett [facility] Attn: Accountin michell,[address] [facility], [place], [address], [place] [facility] 4 12:29:07 Anterior knee pain 347020698 Completed 07/09/2017 Danica Al[place] [facility] 8 16:14:18 Uncontro lled type 2 diabetes mellitus 596690738 Active Giselle remy [place] [facility] 10:42:39 Painful mouth 600574021 Completed 11/22/2014 Giselle Bet[place]our t [place] [facility] 6 10:27:39 Knee pain Completed 07/09/2018 Danica Al[place] [facility] 9 11:36:54 Right upper quadrant pain 467749374 Completed 07/09/2017 Danica [place] [facility] 8 16:17:24 Epigastr ic pain 96935547 Completed 07/09/2017 Danica Alvarez RN [place], [place] [facility] 8 16:18:28 Heartbur n [id number] Completed 07/09/2017 Dan[place] [facility] 8 16:13:45 Flatulen t dyspepsi a [id number] Completed 07/09/2017 Dan[place] [facility] 8 16:17:14 Diabetes mellitus 93610830 Completed 11/22/2014 Giselle Bet[place]our t [place] [facility] 6 10:27:39 Helicoba cter detected in blood [id number] Completed 07/09/2017 Dan[place] [facility] 8 16:13:50 Acute peptic ulcer 556729531 Completed 07/09/2017 Dan[place] [facility] 8 16:13:58 Patellof emoral osteoart hritis 420447161 Active Giselle rem[place] [facility] 2 10:44:24 Infestat ion by Sarcopte s scabiei ernesto hominis [id number] Completed 11/22/2014 Dan[place] [facility] 8 16:13:39 Thigh pain 38388275 Completed 07/09/2017 Dan[place] [facility] 8 16:18:22 Diabetic peripher al neuropat hy 780286238 Active Giselle rem[place] [facility] 2 10:43:41 Infestat ion by Sarcopte s scabiei ernesto hominis [id number] Completed 07/09/2017 Dan[place] [facility] 8 16:13:39 Osteoart hritis of knee 899884476 Active Giselle rem[place] [facility] 2 10:44:14 Bronchit is 48118543 Completed 07/09/2017 Dan[place] [facility] 8 16:17:39 Acute bronchit is 18580292 Completed 07/09/2017 [place] [facility] 8 16:13:34 Allergic rhinitis 30950902 Active G[place]elle rem[place] [facility] 2 10:42:02 Eruption [id number] Completed 07/09/2017 Dan[place] [facility] 8 16:17:18 Otitis media 82906348 Completed 201607/09/2017 [place] [facility] 8 16:18:08 Acute conjunct ivitis 34573454 Completed 201607/09/2017 [place] [facility] 8 16:17:46 Acute laryngit is 4855611 Completed 201607/09/2017 Dan[place] [facility] 8 16:18:18 Problem Notes None recorded. Procedures Surgical History Date Name Laterality Status Provider Name and Address Organization Details Recorded Time 06/05/19 Date of Last Mammogram completed Danica Alvarez RN [facility] 10/06/2022 14:29:46 03/21/19 22 Date of Last Pap Smear completed Danica Alvarez RN [facility] 10/06/2022 14:43:25 03/14/19 22 oophorectomy completed JOHN Topete Attn: Accounting,[address], [place], [address], [facility] 03/21/2021 14:05:13 03/14/19 22 laparoscopic insertion of peritoneal dialysis catheter completed JOHN Topete Attn: Accounting,[address], [place], [address], [facility] 03/21/2021 14:03:20 03/20/19 16 Joint Injection completed Tomer Boles MD [address], [place], [address], [facility] 03/20/2015 11:44:06 12/20/19 15 Joint Injection completed Tomer Boles MD [address], [place], [address], [facility] 12/19/2014 12:04:38 02/23/18 95 Caesarean Section completed Danica Alvarez RN [facility] 06/07/2014 16:13:25 02/23/18 94 Caesarean Section completed Danica Alvarez RN [facility] 06/07/2014 16:13:25 02/23/18 92 Caesarean Section completed Danica Alvarez RN [facility] 06/07/2014 16:13:25 Imaging Results Imaging Date Name Status LastModified by Organ ation Details LastModified Time 06/15/2022 XR, abdomen completed [address] [place] [address], [id number], 10/06/2022 15:11:10 06/14/2022 CT, abdomen + pelvis, w/o contrast completed [address] [place] [address], [id number], 10/06/2022 15:11:10 11/01/2022 XR, chest, 1 view completed [facility] [address], [place], [address], 11/05/2022 17:56:22 12/25/2022 MRI, abdomen + pelvis, w/wo contrast completed [facility] [address] [place], [address], 01/12/2023 10:36:39 03/17/2023 MAMMO, screening, bilateral completed [facility] [address], [place], [address], 03/24/2023 14:16:33 06/19/2023 US, duplex, arterial, upper extremity completed [facility] [address], [place], [address], 07/02/2023 11:53:57 Procedure Notes None recorded. Medical Equipment None Reported. Allergies Allergen ID Allergen Name Allergen Category Reaction Reaction Severity Criticality Documentation Date Start Date Code Code System Note Provider Name and Address Organization Details Recorded Time 72958 Flagyl medicatio n hives Not available Not available 07/06/201410686 6 RxNorm Not Available Not Available Not Available 49160 omeprazol e medicatio n rash Not available Not available 11/22/2014 7646 RxNorm Sep 2014 Not Available Not Available Not Available Medications Name Sig Start Date Stop Date Status Note LastModified by Organization Details LastModified Time vitamin d3 5000 iu softgels 50 TAKE 1 CAPSULE BY MOUTH EVERY DAY 10/06 completed Not Available Not Available Not Available insulin syringe U-100 with needle 1/2 mL 29 active Not Available Not Available No t Available ketorolac 15 mg/mL injection solution Inject every 6 hours by intramus cular route. 11/22 completed Not Available Not Available Not Available cyclobenz aprine 10 mg tablet TAKE 1 TABLET BY MOUTH TWICE A DAY 07/04 completed Not Available Not Available Not Available amoxicill in 500 mg capsule Take 2 capsules every 12 hours by oral route. 12/27 completed Not Available Not Available Not Available fluconazo le 100 mg tablet 10/06 completed Not Available Not Available Not Available atorvasta tin 40 mg tablet Take 1 tablet every day by oral route. 03/21 completed Not Available Not Available Not Available metformin 500 mg tablet Take 1 tablet twice a day by oral route. 03/21 completed Not Available Not Available Not Available promethaz ine-DM 6.25 mg-15 mg/5 mL oral syrup Take 5 mL every 6 hours by oral route as needed for 10 days. 06/06 completed Not Available Not Available Not Available atorvasta tin 80 mg tablet TAKE 1 TABLET BY MOUTH EVERY DAY active Not Available Not Available No t Available Colace 100 mg capsule Take 1 capsule every day by oral route. 2023 active Not Available Not Available Not Avai lable prednison e 10 mg tablet 02/22 completed Not Available Not Available Not Available gabapenti n 600 mg tablet Take 1 tablet 3 times a day by oral route. 06/06 completed Not Available Not Available Not Available labetalol 200 mg tablet TAKE 2 TABLETS BY MOUTH EVERY DAY active Not Available Not Available No t Available clindamyc in HCl 300 mg capsule 07/09 completed Not Available Not Available Not Available polyethyl roxy glycol 3350 17 gram oral powder packet 07/09 completed Not Available Not Available Not Available azithromy sherine 250 mg tablet TAKE 2 TABLETS BY MOUTH TODAY, THEN TAKE 1 TABLET DAILY FOR 4 DAYS 10/06 completed Not Available Not Available Not Available ibuprofen 800 mg tablet Take 1 tablet 3 times a day by oral route for 90 days. 11/22 completed Patient has gastriti s Not Available Not Available Not Available fluconazo le 150 mg tablet TAKE 1 TABLET BY MOUTH active Not Available Not Available No t Available clarithro mycin 500 mg tablet Take 1 tablet every 12 hours by oral route. 11/22 completed Not Available Not Available Not Available hydrocodo ne 5 mg-acetam inophen 325 mg tablet TAKE 1 TABLET BY MOUTH EVERY 6 HOURS NEEDED FOR PAIN 03/05 completed Not Available Not Available Not Available FreeStyle Lancets 28 gauge 10/06 completed Not Available Not Available Not Available lisinopri l 20 mg tablet TAKE 1 TABLET BY MOUTH EVERY DAY 03/12 completed Not Available Not Available Not Available prednison e 20 mg tablet TAKE 1 TABLET BY MOUTH EVERY DAY FOR 7 DAYS 10/06 completed Not Available Not Available Not Available Lantus U-100 Insulin 100 unit/mL subcutane ous solution Inject 30 units by sub-q route for 30 days. 07/09 completed endocrin ology Not Available Not Available Not Available permethri n 5 % topical cream PLEASE SEE ATTACHED FOR DETAILED DIRECTIO NS 10/06 completed Not Available Not Available Not Available clindamyc in HCl 150 mg capsule 07/09 completed Not Available Not Available Not Available clotrimaz ole 1 % vaginal cream Insert 1 applicat orful every day by vaginal route at bedtime for 7 days. 07/09 completed Not Available Not Available Not Available hydralazi ne 25 mg tablet Take 1 tablet every day by oral route. 03/21 completed Not Available Not Available Not Available ciproflox acin 500 mg tablet Take 1 tablet every 12 hours by oral route for 10 days. 07/09 completed Not Available Not Available Not Available omeprazol e 40 mg capsule,d elayed release 11/22 completed Not Available Not Available Not Available aspirin 81 mg tablet,de layed release TAKE 1 TABLET BY MOUTH EVERY DAY active Not Available Not Available No t Available tramadol 50 mg tablet Take 1 tablet 3 times a day by oral route as needed for 5 days. active Not Available Not Available No t Available triamcino lone acetonide 0.1 % topical cream APPLY THIN COAT TO AFFECTED AREA TWICE A DAY active Not Available Not Available No t Available ketorolac 30 mg/mL (1 mL) injection solution Inject 1 mL every 6 hours by intramus cular route. 11/22 completed Not Available Not Available Not Available oxycodone -acetamin ophen 5 mg-325 mg tablet 10/06 completed Not Available Not Available Not Available amoxicill in 875 mg tablet Take 1 tablet every 12 hours by oral route for 10 days. active Not Available Not Available No t Available famotidin e 20 mg tablet TAKE 1 TABLET BY MOUTH EVERY DAY 10/06 completed Not Available Not Available Not Available ropinirol e 0.25 mg tablet 0.25 MG ORALLY EVERY DAY AT BEDTIME active Not Available Not Available No t Available dicyclomi ne 20 mg tablet 11/22 completed Not Available Not Available Not Available ciproflox acin 0.3 % eye drops INSTILL 1 DROP EVERY 2 HOURS BY OPHTHALM IC ROUTE FOR 2 DAYS. 11/04 completed Not Available Not Available Not Available OneTouch Ultra Test strips USE 1 STRIP TWICE A DAY active Not Available Not Available No t Available sodium bicarbona te 650 mg tablet 03/21 completed Not Available Not Available Not Available baclofen 10 mg tablet TAKE 1 TABLET BY MOUTH TWICE DAILY 07/09 completed Not Available Not Available Not Available amlodipin e 10 mg tablet TAKE 1 TABLET BY MOUTH EVERY DAY 03/21 completed Not Available Not Available Not Available doxycycli ne monohydra te 100 mg capsule 07/09 completed Not Available Not Available Not Available hydralazi ne 100 mg tablet TAKE 1 TABLET BY MOUTH TWICE A DAY active Not Available Not Available No t Available ropinirol e 0.5 mg tablet TAKE 1 TABLET BY MOUTH AT BEDTIME active Not Available Not Available No t Available lansopraz ole 30 mg capsule,d elayed release Take 1 capsule twice a day by oral route. 07/27 completed Not Available Not Available Not Available Qvar 40 mcg/actua tion Metered Aerosol oral inhaler Inhale 2 puffs twice a day by inhalati on route as needed for 30 days. 07/09 completed Not Available Not Available Not Available gabapenti n 300 mg capsule Take 1 capsule 3 times a day by oral route. 07/09 completed Not Available Not Available Not Available omeprazol e 20 mg capsule,d elayed release active Not Available Not Available Not Available gentamici n 0.1 % topical cream APPLY TO EXIT SITE DAILY 04/18 completed Not Available Not Available Not Available aspirin 81 mg chewable tablet TAKE 1 TABLET BY MOUTH EVERY DAY AT 0800 10/06 completed Not Available Not Available Not Available monteluka st 10 mg tablet Take 1 tablet every day by oral route. 2023 active Not Available Not Available Not Avai lable hydroxyzi ne HCl 25 mg tablet TAKE 1 TABLET 3 TIMES A DAY BY ORAL ROUTE. 10/06 completed Not Available Not Available Not Available bisacodyl 5 mg tablet,de layed release Take 2 tablets every day by oral route. 03/21 completed Not Available Not Available Not Available lisinopri l 5 mg tablet 07/09 completed Not Available Not Available Not Available mupirocin 2 % topical ointment 07/09 completed Not Available Not Available Not Available gabapenti n 100 mg capsule TAKE 1 CAPSULE BY MOUTH THREE TIMES A DAY FOR 30 DAYS active Not Available Not Available No t Available ibuprofen 600 mg tablet active Not Available Not Available Not Available labetalol 300 mg tablet TAKE 1 TABLET BY MOUTH TWICE A DAY active Not Available Not Available No t Available polyethyl roxy glycol 3350 17 gram/dose oral powder Take 17 g every day by oral route. 2022 active Not Available Not Available Not Avai lable Vitamin D2 1,250 mcg (50,000 unit) capsule 07/09 completed Not Available Not Available Not Available ketorolac 60 mg/2 mL intramusc ular solution Inject 1 mL every 6 hours by intramus cular route. 11/22 completed Not Available Not Available Not Available cefdinir 300 mg capsule TAKE 1 CAPSULE BY MOUTH EVERY DAY DIRECTED 04/18 completed Not Available Not Available Not Available fluticaso ne propionat e 50 mcg/actua tion nasal spray,fernando pension [place] 1 spray twice a day by intranas al route. 2023 active Not Available Not Available Not Avai lable metformin ER 500 mg tablet,ex tended release 24 hr 07/09 completed Not Available Not Available Not Available loratadin e 10 mg tablet Take 1 tablet every day by oral route as needed. 07/09 completed Not Available Not Available Not Available amoxicill in 875 mg-potass ium clavulana te 125 mg tablet TAKE 1 TABLET BY MOUTH EVERY 12 HOURS FOR 10 DAYS 11/04 completed Not Available Not Available Not Available Ventolin HFA 90 mcg/actua tion aerosol inhaler Inhale 2 puffs 3 times a day by inhalati on route as needed for 10 days. 07/09 completed Not Available Not Available Not Available hydroxyzi ne pamoate 25 mg capsule Take 1 capsule every day by oral route at bedtime. 07/09 completed Not Available Not Available Not Available Lice Killing (permethr in) 1 % topical liquid APPLY A SUFFICIE NT AMOUNT OF SHAMPOO BY TOPICAL ROUTE ONCE ALLOW TO REMAIN ONBODY FOR 10 MINUTES BEFORE RINSING OFF WITH WATER 11/22 completed Not Available Not Available Not Available escitalop sobia 10 mg tablet TAKE 1 TABLET BY MOUTH EVERY DAY 11/04 completed Not Available Not Available Not Available Novolog Mix 70-30 FlexPen U-100 Insulin 100 unit/mL subcutane ous pen active Not Available Not Available Not Available Novolog FlexPen U-100 Insulin aspart 100 unit/mL (3 mL) subcutane ous INJECT 20 UNITS SUBCUTAN EOUSLY TWICE A DAY 03/12 completed Not Available Not Available Not Available calcium acetate(p hosphate binders) 667 mg capsule TAKE 2 CAPSULES BY MOUTH WITH EACH MEAL active Not Available Not Available No t Available BD Ultra-Fin e Mini Pen Needle 31 gauge x 3/16 USE DIRECTED WITH INSULIN PEN 3 TIMES DAILY active Not Available Not Available No t Available lactulose 10 gram/15 mL oral solution TAKE 30 ML BY MOUTH TWICE A DAY active Not Available Not Available No t Available aspirin 81 mg daily 10/06 completed Not Available Not Available Not Available BD Ultra-Fin e Short Pen Needle 31 gauge x 5/16 USE DIRECTED 10/06 completed Not Available Not Available Not Available Apidra U-100 Insulin 100 unit/mL subcutane ous solution Inject 20 units 3 times a day by subcutan eous route. 07/09 completed Not Available Not Available Not Available Symbicort 160 mcg-4.5 mcg/actua tion HFA aerosol inhaler INHALE 2 PUFFS BY MOUTH TWICE DAILY DIRECTED FOR 30 DAYS. RINSE MOUTH AFTER USE. 07/09 completed Not Available Not Available Not Available Lantus Solostar U-100 Insulin 100 unit/mL (3 mL) subcutane ous pen INJECT 10 UNITS UNDER SKIN EVERY DAY 2023 active Not Available Not Available Not Avai lable sevelamer carbonate 800 mg tablet TAKE 2 TABLETS BY MOUTH THREE TIMES DAILY WITH MEALS active Not Available Not Available No t Available omeprazol e 20 mg tablet,de layed release Take 1 tablet twice a day by oral route as needed. 2014 active Not Available Not Available Not Avai lable cholecalc iferol (vitamin D3) 125 mcg (5,000 unit) tablet TAKE 1 TABLET BY MOUTH EVERY DAY active Not Available Not Available No t Available GaviLyte- G 236 gram-22.7 4 gram-6.74 gram-5.86 gram oral solution PLEASE SEE ATTACHED FOR DETAILED DIRECTIO NS active Not Available Not Available No t Available liragluti de 0.6 mg/0.1 mL (18 mg/3 mL) subcutane ous pen injector Inject 0.6 mg every day by subcutan eous route. 03/21 completed Not Available Not Available Not Available Kym Allergy 180 mg tablet Take 1 tablet every day by oral route. 2023 active Not Available Not Available Not Avai lable BD Ultra-Fin e Micro Pen Needle 32 gauge x 1/4 USE DIRECTED WITH INSULIN 3 TIMES DAILY 10/06 completed Not Available Not Available Not Available Fiasp FlexTouch U-100 Insulin 100 unit/mL (3 mL) subcutane ous pen inject 20 units twice a day by SQ route 10/06 completed Not Available Not Available Not Available Admelog SoloStar U-100 Insulin lispro 100 unit/mL subcutane ous pen Inject 22 units twice a day by subcutan eous route. 10/06 completed Not Available Not Available Not Available BD Alyson 2nd Gen Pen Needle 32 gauge x /32 USE DIRECTED active Not Available Not Available No t Available OneTouch Delica Plus Lancet 33 gauge active Not Available Not Available Not Available Vitals Date Recorded Body height Body mass index (BMI) Body weight Oxygen saturation Oxygen saturation in Arterial blood by Pulse oximetry Heart rate Body temperature Systolic blood pressure Diastolic blood pressure Provider Name and Address Organization Details Last Updated DateTime 3 160.02 cm 36.3 kg/m2 50170.4 4 g 99 % 99 % 86 /min 98.1 [degF] 140 mm[Hg] 90 mm[Hg] Giselle remy [place] - [facility] 3 14:15:58 Date Recorded Body height Body mass index (BMI) Body weight Heart rate Body temperature Systolic blood pressure Diastolic blood pressure Provider Name and Address Organization Details Last Updated DateTime 3 160.02 cm 33.5 kg/m2 16980.9 6 g 80 /min 97.9 [degF] 120 mm[Hg] 74 mm[Hg] Danica Alvarez RN [facility] 3 14:52:55 Date Recorded Body height Body mass index (BMI) Body weight Body temperature Oxygen saturation Oxygen saturation in Arterial blood by Pulse oximetry Heart rate Systolic blood pressure Diastolic blood pressure Provider Name and Address Organization Details Last Updated DateTime 3 160.02 cm 32.1 kg/m2 23041.6 2 g 98.5 [degF] 98 % 98 % 74 /min 122 mm[Hg] 70 mm[Hg] Giselle remy MA [facility] 3 11:37:24 Date Recorded Body height Oxygen saturation Oxygen saturation in Arterial blood by Pulse oximetry Heart rate Body temperature Body mass index (BMI) Body weight Systolic blood pressure Diastolic blood pressure Provider Name and Address Organization Details Last Updated DateTime 4 160.02 cm 100 % 100 % 68 /min 98.1 [degF] 32.6 kg/m2 30245.4 g 140 mm[Hg] 90 mm[Hg] Giselle remy MA [facility] 4 11:59:24 Date Recorded Body height Body mass index (BMI) Body weight Oxygen saturation Oxygen saturation in Arterial blood by Pulse oximetry Heart rate Respiratory rate Body temperature Systolic blood pressure Diastolic blood pressure Provider Name and Address Organization Details Last Updated DateTime 4 160.02 cm 32.1 kg/m2 92831.2 2 g 100 % 100 % 68 /min 16 /min 98.1 [degF] 184 mm[Hg] 90 mm[Hg] Asad Mcfarlane MA [facility] 4 19:40:59 Social History Question Answer Notes LastModified by Organizat ion Details LastModified Time Tobacco Smoking Status Never Smoker Danica Alvarez RN [facility], [facility] 06/07/2014 16:13:25 Do You Have An Advance Directive? No Information not available 07/04/2021 What Is Your Level Of Alcohol Consumption? Occasional Social Information not available 06/07/2014 Are You Blind Or Do You Have Difficulty Seeing? No Information not available 04/18/2021 What Is Your Level Of Caffeine Consumption? Moderate Coffee, Soda Information not available 07/04/2021 In The 14 Days Before Symptom Onset, Have You Had Close Contact With A Laboratory-confi rmed COVID-19 While That Case Was Ill? No Information not available 07/04/2021 In The 14 Days Before Symptom Onset, Have You Had Close Contact With A Person Who Is Under Investigation For COVID-19 While That Person Was Ill? No Information not available 07/04/2021 Have You Been To An Area Known To Be High Risk For COVID-19? No Information not available 04/18/2021 Are You Currently Employed? Yes Leave Of Absence Information not available 04/18/2021 Are You Deaf Or Do You Have Serious Difficulty Hearing? No Information not available 04/18/2021 What Type Of Diet Are You Following? 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 No Information not available 06/07/2014 Hard Of Hearing Or Deaf In One Or Both Ears? No Information not available 06/07/2014 Legally Blind In One Or Both Eyes? No Information not available 06/07/2014 Marital Status Single Informatio n not available 06/07/2014 What Was The Date Of Your Most Recent Tobacco Screening? 2023 Information not available 2023 How Many Children Do You Have? 3 Information not available 04/18/2021 Performs Monthly Self-breast Exam? No Information not available 06/07/2014 What Is Your Relationship Status? Single Information not available 04/18/2021 Do You Use Your Seat Belt Or Car Seat Routinely? Yes Information not available 04/18/2021 Seat Belts Used Routinely Yes Information not available 06/07/2014 Smoke Alarm In Home Yes Information not available 06/07/2014 Do You Have Smoke And Carbon Monoxide Detectors In Your Home? Yes Information not available 04/18/2021 Are You Passively Exposed To Smoke? Yes Information not available 04/18/2021 General Stress Level High Information not available 06/07/2014 Do You Feel Stressed (tense, Restless, Nervous, Or Anxious, Or Unable To Sleep At Night)? [id number] Information not available 03/21/2021 Do You Use Any Illicit Or Recreational Drugs? No Information not available 07/04/2021 Do You Use Sunscreen Routinely? No Information not available 07/04/2021 Has Tobacco Cessation Counseling Been Provided? No Information not available 01/31/2022 Do You Or Have You Ever Used Any Other Forms Of Tobacco Or Nicotine? No Information not available 01/31/2022 Sex: Female Functional Status Question Answer Note LastModified by Organization D etails LastModified Time Are you able to care for yourself? Yes Information n ot available 04/18/2021 What is your exercise level? None Information not available 04/18/2021 Mental Status None recorded. Family History Relationship Description Onset Age of this Age Resolved Age Notes LastModified by Organization Details LastModified Time Mother Diabetes mellitus [email or web address] Not available 10:27:40 Mother Malignant neoplasm of female breast 40 [email or web address] Not available 2018 12:41:22 Mother Cholelithias is with obstruction 40 40 [email or web address] Not available 06/23 16:41:47 Father Malignant tumor of prostate [email or web address] Not available 10:27:40 Sister Cerebrovascu lar accident 43 [email or web address] Not available 12:44:05 Sister Diabetes mellitus 46 yarauz Not available 2022 14:54:40 Sister Hypertensive disorder yarauz Not available 2018 12:45:31 Daughter Removal of pulmonary embolus 20 20 yarauz Not available 2021 12:44:17 Medical History Condition Response Diabetes Y Muscle, Joint, or Bone Problems Y High Blood Pressure Y Kidney or Bladder Problems Y Allergies Y High Cholesterol Y Gynecological History Statement/Question Response Date of Last Mammogram 06/04/2021 Flow Moderate Date of LMP 01/07/2023 Duration of Flow (days) 10 Age at Menarche 8 Current Control Method Tubal Ligat ion Age at First Child 13 Frequency of Cycle (Q days) 28 Menses Monthly N Date of Last Pap Smear 03/21/2021 LMP Approximate Obstetrics History GPAL:G 3 P 3 0 0 3 Type Value Multiple Births 0 Full Term 3 Induced 0 Spontaneous 0 Premature 0 Living 3 Ectopics 0 Total 3 Immunizations Vaccine Type Date Status Note Provider Nam e and Address Organization Details Recorded Time pneumococcal polysaccharide PPV23 8 completed Not Available [facility] 2019 02:45:24 Tdap 8 completed Not Available [facility] 2019 02:35:23 Pneumococcal conjugate PCV 13 2 completed Danica Alvarez RN [place], [place] [facility] 04/19/2021 09:45:40 Hep B, adult 2 completed Danica [place] [facility] 04/19/2021 09:44:41 Influenza, split virus, quadrivalent, preservative 2 completed Alonzo Reynolds MD Attn: Accounting,204 1 [place], [place], [address] [place] [address], [place] [facility] 12/30/2021 15:50:00 Hep B, adult 3 completed JOHN Topete Attn: Accounting,204 1 [place], [place], [address] [place] [address], [place] [facility] 10/07/2022 09:34:18 Influenza, split virus, quadrivalent, preservative 3 completed Cordelia Alexander [place], [place] [facility] 02/03/2023 13:00:18 Hep B, adult 4 completed JOHN Topete Attn: Accounting,204 1 [place], [place], [address] [place] [address], [place] [facility] 2023 15:26:13 Pneumococcal conjugate PCV20, polysaccharide [id number] conjugate, adjuvant, PF 4 completed JOHN Topete Attn: Accounting,204 1 [address] LOVE , [place], [address], [facility] 2023 15:26:13 Past Encounters Encounter ID Performer Location Encounter Start Date Encounter Closed Date Diagnosis/Indication Diagnosis SNOMED-CT Code Diagnosis ICD10 Code Diagnosis Note [id number] Danica Alvarez RN [facility] [address] [place] [address] 06/07/2014 15:52:20 06/08/2014 15:51:04 Anterior knee pain [id number] 06/04/2014 left knee xray=moder ate joint effusion otherwise normal 05/05/2014 left knee xray=joint effusion otherwise normal 11/24/2013 left knee xray=kimberly l the patient has not gone to PT which was ordered back in 10/2013 as something came up advised weight loss stressed to take Gabapentin 300mg tid daily not prn Uncontroll ed type 2 diabetes mellitus [id number] the patient follows with Dr. Catherine Gaytan Endocrinol [facility] at [place]. The patient is non compliant with treatment and management of DM2 [id number] Danica Alvarez RN [address] [address] 06/20/2014 17:46:17 06/21/2014 09:46:05 Painful mouth 940533979 antibiotic s and follow up Knee pain 96672832 sees ortho August 15... pain meds and follow up [id number] Danica Alvarez RN [facility] [address] [place] [address] 07/06/2014 12:15:55 07/11/2014 13:25:20 Right upper quadrant pain [id number] 06/29/2014 CT of ABD/PELVIS showed a contracted Gallbladde r 07/03/2014 GB u/S = NORMAL Completed 1 week of daily Omeprazole BRAT diet avoid spicy foods or anything aggravatin g Epigastric pain 08119982 Heartburn 22158691 Flatulent dyspepsia 186650538 Diabetes mellitus 46116838 Patient follows up with [facility] for this problem--s he is to continue to follow up with that office for this medical problem. [id number] [facility] [address] [place] [address] 07/19/2014 16:17:50 07/21/2014 16:53:41 Knee pain 55947345 see orthopedic s stop Ibuprofen for now will give some Tramadol for pain until seen by Ortho Continue PT Patient to discuss Rx for brace with Ortho Acute peptic ulcer 637140657 complete Triple therapy keep apt with GI Avoid aggravatin g foods [id number] [facility] [address] [place] [address] 08/15/2014 09:14:17 08/16/2014 12:02:00 Patellofemoral osteoarthritis 605537726 [id number] Danica Alvarez RN [facility] [address], [place] [address] 10/02/2014 13:49:33 10/09/2014 12:46:07 Infestation by Sarcoptes scabiei ernesto hominis [id number] Rigoeleonora Rose Marie [facility] [address], [place] [address] 11/22/2014 12:15:53 11/23/2014 17:10:01 Thigh pain 62989688 Increase Gabapentin 600mg bid to tid Keep blood sugars in the low 100's weight loss, exercise diabetic neuropathy informatio n discussed and handout given Knee pain 39180164 see orthopedic s--as patient voices difficulty in getting an appointmen t RN has helped to get appt. and patient is now scheduled for 12/19/2014 --keep appointmen t weight loss/ROM exercises at home Use brace as directed Diabetic p eripheral neuropathy 995259472 Uncontroll ed type 2 diabetes mellitus 042699359 the patient follows with Dr. Catherine Gaytan Endocrinol ogy at [place]. The patient is non compliant with treatment and management of DM2 2/2 to issues with her medication s not covered by insurance per patient report discussed ramificati ons of uncontroll ed DM and neuropathy symptoms patient is to call her Endocrinol ogists office for appointmen t CAMI to get ALL her medication s monitor blood pressure for elevations -- patient to keep a log and if continued elevations noted to schedule appointmen t and/or take with endocrinol ogist at [facility] prn [id number] Tomer Boles MD [facility] [address] [place] [address] 12/19/2014 10:37:52 12/19/2014 16:01:48 Knee pain 18710554 M25.569 Patellofem oral osteoarthritis 268778966 M17.9 Infestatio n by Sarcoptes scabiei ernesto hominis 021162123 B86 [id number] Sonam La [facility] [address] [place] [address] 03/20/2015 09:57:27 03/20/2015 13:54:02 Osteoarthritis of knee 282639157 M17.9 Anterior knee pain 15088 3006 M25.569 [id number] Jessie Crockett [facility] [address], [place] [address] 06/07/2015 10:25:17 06/11/2015 17:59:47 Adult health examination 736388192 Z00.01 Acute bronchitis 7832976 2 J20.9 Allergic rhinitis 610308 04 J30.9 Uncontroll ed type 2 diabetes mellitus 503909065 E11.65 the patient follows with Dr. Catherine Gaytan Endocrinol ogy at [place]. The patient reports she is now compliant with treatment and management of DM2 2/2 to issues with her medication s not covered by insurance per patient report discussed ramificati ons of uncontroll ed DM and neuropathy symptoms patient is to call follow up with Endocrinol ogist for management of this problem Patient has an order from Endo fos fasting labs which she will get [facility] Medication monitoring 39 1903492 Z51.81 Patient was started on B/P medicine Lisinopril 5mg once daily per Endo Tessie black, REPAIR SERVICER on 04/10/2015= =she was given 11 RF and still using first bottle [id number] Carmelo Shore PA-C [address] [address] 05/31/2015 17:04:34 06/16/2015 13:13:12 Bronchitis 12205488 J40 [id number] Yana Jamari [address] [address] 08/17/2015 18:18:44 08/21/2015 03:47:53 Eruption 617244003 R21 [id number] Carmelo Shore PA-C [facility] [address] [place] [address] 04/24/2016 17:43:51 04/25/2016 17:15:56 Otitis media 82412621 H66.91 Acute conjunctivitis 537 35612 H10.31 Acute laryngitis 8423697 J04.0 viral [id number] [facility] [address], [place] [address] 07/09/2017 15:52:35 07/10/2017 10:25:39 Gynecologic examination 38432975 Z01.411 Self breast exam calcium rich foods handout vitamin D 2000 iu daily exercise weight loss diet Administra tion of pneumococcal vaccine 70183956 Z23 Administra tion of diphtheria, pertussis, and tetanus vaccine 650768258 Z23 Morbid obesity 855784280 E66.01 Cyst of left ovary 70528 83059 1648762 N83.202 Uncontroll ed type 2 diabetes mellitus 753766156 E11.65 the patient follows with Dr. Catherine Gaytan Endocrinol ogy at [place]. The patient reports she is now compliant with treatment and management of DM2 2/2 to issues with her medication s not covered by insurance per patient report discussed ramificati ons of uncontroll ed DM and neuropathy symptoms patient is to call follow up with Endocrinol ogist for management of this problem Family his tory of malignant neoplasm of breast in first degree relative 826219689 Z80.3 Patient refuses referral for genetic testing [id number] Jessie Crockett [facility] [address], [place] [address] 09/23/2017 12:32:53 09/30/2017 18:12:11 Vaginitis 69634308 N76.0 Candidal vulvovaginitis 33602550 B37.3 [id number] Jessie Crockett [facility] [address], [place] [address] 07/09/2018 11:53:24 07/12/2018 10:40:14 Gynecologic examination 85386526 Z01.411 Self breast exam calcium rich foods handout vitamin D 2000 iu daily exercise weight loss diet Last pap 07/09/2017 normal due in 2020 Morbid obesity 400408931 E66.01 40.7 bmi Cyst of left ovary 38796 85742 8424467 N83.202 Uncontroll ed type 2 diabetes mellitus 880815973 E11.65 g the patient follows with Dr. Catherine Gaytan Endocrinol ogy at [place]. The patient reports she is now compliant with treatment and management of DM2 2/2 to issues with her medication s not covered by insurance per patient report discussed ramificati ons of uncontroll ed DM and neuropathy symptoms patient is now following up with Endocrinol ogist for management of this problem, HTN, HPLD Family his tory of malignant neoplasm of breast in first degree relative 820840501 Z80.3 Patient's mother had breast cancer at 40 y/o Screening for malignant neoplasm of breast 548968794 Z12.31 Patient's mother had breast cancer at 40 y/o Adjustment disorder with depressed mood 80450367 F43.21 psychother apist list [id number] [facility] [address], [place] [address] 03/21/2021 11:24:25 03/22/2021 06:47:39 Gynecologic examination 72670364 Z01.411 Self breast exam calcium rich foods handout vitamin D 2000 iu daily exercise weight loss diet Last pap 07/09/2017 normal Morbid obesity 715326417 E66.01 39.4 bmi Cyst of left ovary 28371 49920 9417736 N83.202 Uncontroll ed type 2 diabetes mellitus 216420057 E11.65 the patient is currently not following with anyone for this problem the [facility] using LantusHydr alazine 100mg bidLisinop ril 20mg daily Family his tory of malignant neoplasm of breast in first degree relative 112396366 Z80.3 Patient's mother had breast cancer at 40 y/oPATIENT WAS REFERRED TO COUNSELING BUT THE PATIENT DID NOT FOLLOW THRU Screening for malignant neoplasm of breast 249756862 Z12.31 Patient's mother had breast cancer at 40 y/o Adjustment disorder with depressed mood 11767541 F43.21 psychother apist list Hypertensive disorder 38 342440 I10 BP Goal: {{Less than 140/90 Les s than 150/90*}} BP Controlled : {{yes no y es; per the JNC8 guidelines in the absence of renal disease and DM#}} Healthy Weight: {{4'10= 91-118 lbs 4'11= 94-123 lbs 5'= 97-127 lbs 5'1= 100-131 lbs 5'2= 104-135 5' 3= 107-140 lbs* 5'4= 110-144 lbs 5'5= 115-149 lbs 5'6= 118-154 lbs 5'7= 121-158 lbs 5'8= 125-163 lbs 5'9= 128-168 lbs 5'10= 132-173 lbs 5'11= 136-178 lbs 6'= 140-183 lbs 6'1= 144-188 lbs 6'2= 148-193 lbs 6'3= 152-199 lbs 6'4= 156-204 lbs}} Discussed: Low sodium balanced diet, moderate exercise at least 3-4 times per week for an average of 40 minutes Next Visit: {{1 2 3* 4 5 6 7 8 9 10 11 12} }{{week(s) month(s)* }} [id number] Jessie Crockett, [facility] [address] [address] 04/18/2021 11:33:48 04/19/2021 07:52:01 Uncontrolled type 2 diabetes mellitus 288532504 E11.65 HA1C 6.1random accucheck 183the patient is currently not following with anyone for this problem she had been getting meds during ER visits-she had hospitaliz ation at [facility] 01/20/2021 found to be in ARF-starte d on dialysissh e presents today to establish care at this centerthe patient now on dialysis with [facility] [place] will be transition ing to self dialysis-s he is interested in renal transplant currently using Lantus 8 units at HSHydralaz ine 100mg bidLisinop ril 20mg dailylabet olol 200mg BID Chronic ki dney disease stage 5 on dialysis 746701177 Z99.2 continue to [place] [place] Morbid obesity 540082567 E66.01 40.8 bmiHealthy Weight: {{4'10= 91-118 lbs 4'11= 94-123 lbs 5'= 97-127 lbs 5'1= 100-131 lbs 5'2= 104-135 5' 3= 107-140 lbs* 5'4= 110-144 lbs 5'5= 115-149 lbs 5'6= 118-154 lbs 5'7= 121-158 lbs 5'8= 125-163 lbs 5'9= 128-168 lbs 5'10= 132-173 lbs 5'11= 136-178 lbs 6'= 140-183 lbs 6'1= 144-188 lbs 6'2= 148-193 lbs 6'3= 152-199 lbs 6'4= 156-204 lbs}} Hypertensive disorder 38 076926 I10 BP Goal: {{Less than 140/90* Le ss than 150/90}}BP Controlled : {{yes* no} }Healthy Weight: {{4'10= 91-118 lbs 4'11= 94-123 lbs 5'= 97-127 lbs 5'1= 100-131 lbs 5'2= 104-135 5' 3= 107-140 lbs* 5'4= 110-144 lbs 5'5= 115-149 lbs 5'6= 118-154 lbs 5'7= 121-158 lbs 5'8= 125-163 lbs 5'9= 128-168 lbs 5'10= 132-173 lbs 5'11= 136-178 lbs 6'= 140-183 lbs 6'1= 144-188 lbs 6'2= 148-193 lbs 6'3= 152-199 lbs 6'4= 156-204 lbs}}Discu ssed: Low sodium balanced diet, moderate exercise at least 3-4 times per week for an average of 40 minutesNex t Visit: {{1 2 3* 4 5 6 7 8 9 10 11 12} }{{week(s) month(s)* }}[facility] 022237773 Z00.01 Pelvic mass 63269414 R19 .00 L adnexal mass seen on pelvic u/s on 04/18/2021L arge cystic mass of the left adnexal region measuring at least 11.8 cm.This is indetermin ate for malignancy and not well characteri zed sonographi aaron.Furt her evaluation is recommende d with either CT or MRI with and withoutcon trast.Will send for MRI Anemia in chronic kidney disease 488015323 D63.1 Chronic constipation 236 181287 K59.09 Takes BisacodylT akes stool softener History of optic neuritis 1303477603 7608375 Z86.69 2020seen opth 2020 [id number] Cordelia Alexander [facility] [address] [place] [address] 05/10/2021 09:59:12 05/13/2021 07:13:40 Uncontrolled type 2 diabetes mellitus 594277044 E11.65 HA1C 6.1random accucheck 183the patient is currently not following with anyone for this problem she had been getting meds during ER visits-she had hospitaliz ation at [facility] 01/20/2021 found to be in ARF-starte d on dialysissh e presents today to establish care at this centerthe patient now on dialysis with [facility] in [facility] le will be transition ing to self dialysis-s he is interested in renal transplant currently using Lantus 8 units at H[facility]ydral[facility] ine 100mg bidLisinop ril 20mg dailylabet olol 200mg BID Anemia in chronic kidney disease 277506826 D63.1 [id number] Jessie Crockett [facility] [address] [place] [address] 07/04/2021 11:05:56 07/05/2021 10:25:01 Allergic rhinitis 60922595 J30.9 otc zyrtec samples Uncontroll ed type 2 diabetes mellitus 401950848 E11.65 Today HA1C 8.1random accucheck 245the patient is currently not following with anyone for this problem she had been getting meds during ER visits-she had hospitaliz ation at [facility] 01/20/2021 found to be in ARF-starte d on dialysissh e presented here on 04/18/2021 [facility] with [facility] [place] has transition ed to self dialysis-s he is interested in renal transplant -has consulted at [facility] using Lantus 8 units at HS-BS at home 111-160Hyd ralazine 100mg bidLisinop ril 20mg dailylabet olol 200mg BIDShe will see Dr/nephrol ogist today and may have med adjustment Hypertensive disorder 38 342793 I10 BP Goal: {{Less than 140/90* Le ss than 150/90}}BP Controlled : {{yes no*} }Healthy Weight: {{4'10= 91-118 lbs 4'11= 94-123 lbs 5'= 97-127 lbs 5'1= 100-131 lbs 5'2= 104-135 5' 3= 107-140 lbs* 5'4= 110-144 lbs 5'5= 115-149 lbs 5'6= 118-154 lbs 5'7= 121-158 lbs 5'8= 125-163 lbs 5'9= 128-168 lbs 5'10= 132-173 lbs 5'11= 136-178 lbs 6'= 140-183 lbs 6'1= 144-188 lbs 6'2= 148-193 lbs 6'3= 152-199 lbs 6'4= 156-204 lbs}}Discu ssed: Low sodium balanced diet, moderate exercise at least 3-4 times per week for an average of 40 minutesNex t Visit: {{1 2 3* 4 5 6 7 8 9 10 11 12} }{{week(s) month(s)* }}Patient has refill of her meds from nephrologi [facility] ki dney disease stage 5 on dialysis 203800992 Z99.2 continue to [place] Diabetic p eripheral neuropathy 249052678 E11.40 stable Gastroesop hageal reflux disease 687601151 K21.9 stable for now Morbid obesity 519135961 E66.01 40.8 bmiHealthy Weight: {{4'10= 91-118 lbs 4'11= 94-123 lbs 5'= 97-127 lbs 5'1= 100-131 lbs 5'2= 104-135 5' 3= 107-140 lbs* 5'4= 110-144 lbs 5'5= 115-149 lbs 5'6= 118-154 lbs 5'7= 121-158 lbs 5'8= 125-163 lbs 5'9= 128-168 lbs 5'10= 132-173 lbs 5'11= 136-178 lbs 6'= 140-183 lbs 6'1= 144-188 lbs 6'2= 148-193 lbs 6'3= 152-199 lbs 6'4= 156-204 lbs}} Depression screening 171 637732 Z13.31 PHQ2-9 mild depression -patients 20 y/o daughter unexpected ly a couple of weeks agoPatient reports having difficulty sleeping Depressive disorder 3548 9007 F32.A 07/04/2021 PHQ2-9 09/18Agrees to start Rx escitalopr am Chronic constipation 236 340701 K59.09 Takes BisacodylT akes stool softener Bereavement 75140484 Z63 .4 recommend psychother apist-seek appointmen t [id number] Jessie Crockett [facility] [address], [place] [address] 08/15/2021 11:09:34 08/16/2021 15:00:04 Acute sinusitis 67557901 J01.90 Morbid obesity 716170612 E66.01 41.2 bmiHealthy Weight: {{4'10= 91-118 lbs 4'11= 94-123 lbs 5'= 97-127 lbs 5'1= 100-131 lbs 5'2= 104-135 5' 3= 107-140 lbs* 5'4= 110-144 lbs 5'5= 115-149 lbs 5'6= 118-154 lbs 5'7= 121-158 lbs 5'8= 125-163 lbs 5'9= 128-168 lbs 5'10= 132-173 lbs 5'11= 136-178 lbs 6'= 140-183 lbs 6'1= 144-188 lbs 6'2= 148-193 lbs 6'3= 152-199 lbs 6'4= 156-204 lbs}} Bereavement 04415795 Z63 .4 recommend psychother apist-seek appointmen t Depressive disorder 3548 9007 F32.A 08/15/2021 PHQ2-9 0wishes not to take Rx escitalopr twan cope on her owndenies suicide ideationre commend seek psychother demetrio/eladio t group Acute conjunctivitis 537 16491 H10.13 [id number] Jessie Crockett, [facility] [address] [place] [address] 11/04/2021 11:15:18 11/05/2021 11:07:40 Uncontrolled type 2 diabetes mellitus 628799939 E11.65 Today HA1C 10.1random accucheck4 12BS 150-260 range just with Lantus 8 units-has not been using Lispro insulin for a whilethe patient is currently not following with anyone for this problem she had been getting meds during ER visits-she had hospitaliz ation at [place] 01/20/2021 found to be in ARF-starte d on dialysissh e presented here on 04/18/2021 [facility] with [facility] in [facility] le has transition ed to self dialysis-s he is interested in renal transplant -has consulted at [facility] using Lantus 8 units at HS-BS at home 111-160Hyd ralazine 100mg bidLisinop ril 20mg dailylabet olol 300mg BID Allergic rhinitis 263405 04 J30.9 otc zyrtec samples Hypertensive disorder 38 390231 I10 BP Goal: {{Less than 140/90* Le ss than 150/90}}BP Controlled : {{yes no*} }Healthy Weight: {{4'10= 91-118 lbs 4'11= 94-123 lbs 5'= 97-127 lbs 5'1= 100-131 lbs 5'2= 104-135 5' 3= 107-140 lbs* 5'4= 110-144 lbs 5'5= 115-149 lbs 5'6= 118-154 lbs 5'7= 121-158 lbs 5'8= 125-163 lbs 5'9= 128-168 lbs 5'10= 132-173 lbs 5'11= 136-178 lbs 6'= 140-183 lbs 6'1= 144-188 lbs 6'2= 148-193 lbs 6'3= 152-199 lbs 6'4= 156-204 lbs}}Discu ssed: Low sodium balanced diet, moderate exercise at least 3-4 times per week for an average of 40 minutesNex t Visit: {{1 2 3* 4 5 6 7 8 9 10 11 12} }{{week(s) month(s)* }}[facility] 5 [facility] 488688284 Z99.2 continue to [place] Diabetic p eripheral neuropathy 647242246 E11.40 stable Gastroesop hageal reflux disease 519236598 K21.9 stable for now Morbid obesity 690479466 E66.01 37.8 bmiHealthy Weight: {{4'10= 91-118 lbs 4'11= 94-123 lbs 5'= 97-127 lbs 5'1= 100-131 lbs 5'2= 104-135 5' 3= 107-140 lbs* 5'4= 110-144 lbs 5'5= 115-149 lbs 5'6= 118-154 lbs 5'7= 121-158 lbs 5'8= 125-163 lbs 5'9= 128-168 lbs 5'10= 132-173 lbs 5'11= 136-178 lbs 6'= 140-183 lbs 6'1= 144-188 lbs 6'2= 148-193 lbs 6'3= 152-199 lbs 6'4= 156-204 lbs}} Bereavement 98993754 Z63 .4 recommend psychother apist-seek appointmen t Depression screening 171 654742 Z13.31 PHQ2-9 wnl now Chronic constipation 236 604971 K59.09 Takes Bisacody akes stool softener Cyst of left ovary 78263 63024 7424007 N83.202 Patient has had cyst since 2018Patien t has been referred to MINE ENGINEER for this problem back in 2018 and again in 2Transp lant team needs a MINE ENGINEER note clearing for kidney transplant Has not seen MINE ENGINEER yet-appoin tment scheduled for later in the month [id number] Alonzo Reynolds MD [facility] [address] [place] [address] 12/27/2021 10:28:17 12/30/2021 12:57:50 Mass of right breast 5193707918 1002609 N63.10 movable soft mass 1.5cm (2) area below R nipple Body mass index 30+ - obesity 929075907 Z68.36 BMI 36.9Ht 5' 3 Healthy weight range 95-130 Depression screening 171 564405 Z13.31 PHQ2-9 wnl Mental hea lth screening 824357879 Z13.39 HAYLEY-7 negative Administra tion of influenza vaccine 07136651 Z23 [id number] [facility] [address] [place] [address] 01/31/2022 11:30:16 02/03/2022 13:44:44 Family history of malignant neoplasm of breast in first degree relative 297648786 Z80.3 Patient's mother had breast cancer at 40 y/oPATIENT WAS REFERRED TO COUNSELING BUT THE PATIENT DID NOT FOLLOW THRU1 PATIENT WANTS TO GO TO GENETIC COUNSELING Mass of right breast 064 5652570 9414107 N63.10 movable soft mass 1.5cm (2) area below R nipple Body mass index 30+ - obesity 014294774 Z68.36 BMI 36.Ht 5' 3 Healthy weight range 95-130 Depression screening 171 805063 Z13.31 PHQ2-9 mild depression Mental hea lth screening 554090199 Z13.39 HAYLEY-7 negative Hypertensive disorder 38 706009 I10 BP Goal: {{Less than 140/90* Le ss than 150/90}}BP Controlled : {{yes no*} }Healthy Weight: {{4'10= 91-118 lbs 4'11= 94-123 lbs 5'= 97-127 lbs 5'1= 100-131 lbs 5'2= 104-135 5' 3= 107-140 lbs* 5'4= 110-144 lbs 5'5= 115-149 lbs 5'6= 118-154 lbs 5'7= 121-158 lbs 5'8= 125-163 lbs 5'9= 128-168 lbs 5'10= 132-173 lbs 5'11= 136-178 lbs 6'= 140-183 lbs 6'1= 144-188 lbs 6'2= 148-193 lbs 6'3= 152-199 lbs 6'4= 156-204 lbs}}Discu ssed: Low sodium balanced diet, moderate exercise at least 3-4 times per week for an average of 40 minutesNex t Visit: {{1 2 3* 4 5 6 7 8 9 10 11 12} }{{week(s) month(s)* }}Gets meds from Nephrologi [id number] Jessie Crockett [facility] [address] [place] [address] 03/05/2022 11:39:06 2022 12:49:43 Uncontrolled type 2 diabetes mellitus 810078235 E11.65 Today HA1C 9.6random accucheck 225BS 150-260 range just with Lantus 8 units-has not been using Lispro insulin for a whilethe patient is currently not following with anyone for this problem she had been getting meds during ER visits-she had hospitaliz ation at [place] 01/20/2021 found to be in ARF-starte d on dialysissh e presented here on 04/18/2021 [facility] with Davitta in [facility] le has transition ed to self dialysis-s he is interested in renal transplant -has consulted at [facility] using Lantus 10 units at -BS at home 69-160Hydr alazine 100mg bidLisinop ril 20mg dailylabet olol 300mg BID Hypertensive disorder 38 430939 I10 BP Goal: {{Less than 140/90* Le ss than 150/90}}BP Controlled : {{yes* no} }Healthy Weight: {{4'10= 91-118 lbs 4'11= 94-123 lbs 5'= 97-127 lbs 5'1= 100-131 lbs 5'2= 104-135 5' 3= 107-140 lbs* 5'4= 110-144 lbs 5'5= 115-149 lbs 5'6= 118-154 lbs 5'7= 121-158 lbs 5'8= 125-163 lbs 5'9= 128-168 lbs 5'10= 132-173 lbs 5'11= 136-178 lbs 6'= 140-183 lbs 6'1= 144-188 lbs 6'2= 148-193 lbs 6'3= 152-199 lbs 6'4= 156-204 lbs}}Discu ssed: Low sodium balanced diet, moderate exercise at least 3-4 times per week for an average of 40 minutesNex t Visit: {{1 2 3* 4 5 6 7 8 9 10 11 12} }{{week(s) month(s)* }}[facility] d[facility] stage 5 on dialysis 480711344 Z99.2 continue to follow up with [place] [place] Body mass index 30+ - obesity 845932330 Z68.36 BMI 36.Ht 5' 3 Healthy weight range 95-130 Allergic rhinitis 351515 04 J30.9 otc zyrtec Diabetic p eripheral neuropathy 023591429 E11.40 stable Gastroesop hageal reflux disease [id number] K21.9 stable for now Morbid obesity 630540169 E66.01 36 bmiHealthy Weight: {{4'10= 91-118 lbs 4'11= 94-123 lbs 5'= 97-127 lbs 5'1= 100-131 lbs 5'2= 104-135 5' 3= 107-140 lbs* 5'4= 110-144 lbs 5'5= 115-149 lbs 5'6= 118-154 lbs 5'7= 121-158 lbs 5'8= 125-163 lbs 5'9= 128-168 lbs 5'10= 132-173 lbs 5'11= 136-178 lbs 6'= 140-183 lbs 6'1= 144-188 lbs 6'2= 148-193 lbs 6'3= 152-199 lbs 6'4= 156-204 lbs}} Cyst of left ovary 32038 57834 4506391 N83.202 Patient has had cyst since 2018Patien t has been referred to MINE ENGINEER for this problem back in 2018 and again in 2021Transp lant team needs a MINE ENGINEER note clearing for kidney transplant Has not seen MINE ENGINEER yet-appoin tment scheduled for later in the month Chronic constipation 236 864549 K59.09 Takes BisacodylT akes stool softener Depression screening 171 815572 Z13.31 PHQ2-9 negative Mental hea lt screening 628095751 Z13.39 HAYLEY-7 negative Nasal congestion 5373299 0 R09.81 Acute laryngitis 1515523 J04.0 Exposure to scabies 1626 335223 1239920 Z20.7 Pruritic rash 31865477 L 28.2 [id number] Jessie Crockett [facility] [address] [place] [address] 06/11/2022 14:01:33 06/12/2022 14:47:11 Body mass index 30+ - obesity 227005891 Z68.36 BMI 36.3Ht 5' 3 Healthy weight range 95-130 Obesity 382557717 E66.9 BMI 36.3Ht 5' 3 Healthy weight range 95-130 Follow-up visit [id number] 9 Z09 42 y/o AAF presents for follow up ER visit on 05/03/2022 to [facility] for severe headache. The patient has a history of end stage renal disease getting peritoneal dialysis nightly. The patient had a severe headache with nausea that was not responding to Excedrin. Hence, she called an ambulance and presented to hospital. She had intense nausea and vomiting. She had had some generalize d weakness but no focal deficits. Head and neck CTA read as no significan t abnormalit y. Head CT showed small region of decreased attenuatio n at left occipital lobe suspicious for relatively recent, potentiall y acute infarct which is new since 01/06/2022 . The patient was started on Aspirin. She was given dilaudid, compazine, and hydralazin e for her headache which resolved. The patient was admitted and neurology and nephrology were consultedT he patient has noThe patient voices she is taking aspirin 81mg daily and has not started on Atorvastat in 80mg yet.t had any other headaches or neurologic al changes. She needs a referral to see neurology. History of cerebrovascular accident 020654207 Z86.73 05/03/[address] showed small region of decreased attenuatio n at left occipital lobe suspicious for relatively recent, potentiall y acute infarct which is new since 01/06/2022 . Hypertensive disorder 38 862546 I10 BP Goal: {{Less than 140/90* Le ss than 150/90}}BP Controlled : {{yes* no} }Healthy Weight: {{4'10= 91-118 lbs 4'11= 94-123 lbs 5'= 97-127 lbs 5'1= 100-131 lbs 5'2= 104-135 5' 3= 107-140 lbs* 5'4= 110-144 lbs 5'5= 115-149 lbs 5'6= 118-154 lbs 5'7= 121-158 lbs 5'8= 125-163 lbs 5'9= 128-168 lbs 5'10= 132-173 lbs 5'11= 136-178 lbs 6'= 140-183 lbs 6'1= 144-188 lbs 6'2= 148-193 lbs 6'3= 152-199 lbs 6'4= 156-204 lbs}}Discu ssed: Low sodium balanced diet, moderate exercise at least 3-4 times per week for an average of 40 minutesNex t Visit: {{1 2 3* 4 5 6 7 8 9 10 11 12} }{{week(s) month(s)* }}Gets meds from Nephrologi stReports Labetalol stoppedPat ient is taking Lisinopril 20mg dailyPatie nt is taking Hydralazin e 100mg bid Depression screening 171 037081 Z13.31 PHQ2-9 negative Mental hea [facility] screening 068036644 Z13.39 HAYLEY-7 negative [id number] Jessie Crocktet, [facility] [address] [place] [address] 10/06/2022 14:16:18 10/07/2022 11:43:28 Hypertensive disorder 82578302 I10 BP Goal: {{Less than 140/90* Le ss than 150/90}}BP Controlled : {{yes* no} }Healthy Weight: {{4'10= 91-118 lbs 4'11= 94-123 lbs 5'= 97-127 lbs 5'1= 100-131 lbs 5'2= 104-135 5' 3= 107-140 lbs* 5'4= 110-144 lbs 5'5= 115-149 lbs 5'6= 118-154 lbs 5'7= 121-158 lbs 5'8= 125-163 lbs 5'9= 128-168 lbs 5'10= 132-173 lbs 5'11= 136-178 lbs 6'= 140-183 lbs 6'1= 144-188 lbs 6'2= 148-193 lbs 6'3= 152-199 lbs 6'4= 156-204 lbs}}Discu ssed: Low sodium balanced diet, moderate exercise at least 3-4 times per week for an average of 40 minutesNex t Visit: {{1 2 3* 4 5 6 7 8 9 10 11 12} }{{week(s) month(s)* }}Gets meds from Nephrologi st Patient is taking Lisinopril 20mg dailyPatie nt is taking Hydralazin e 100mg bidPatient is taking Labetalol 300mg bid Uncontroll ed type 2 diabetes mellitus 323061154 E11.65 Today HA1C 8random accucheck 225BS 150-260 range just with Lantus 8 units-has not been using Lispro insulin for a whilethe patient is currently not following with anyone for this problem she had been getting meds during ER visits-she had hospitaliz ation at [facility] 01/20/2021 found to be in ARF-starte d on dialysissh e presented here on 04/18/2021 [facility] with [place] has transition ed to self dialysis-s he is interested in renal transplant -has consulted at [facility] and is on waiting listcurren tly using Lantus 10 units at -BS at home 69-160Pati ent will start using Lispro insulin 5 units bid she has not been using secondary to low sugars and afraidPati ent is taking Labetalol 300mg bidHydrala zine 100mg bidLisinop ril 20mg daily Morbid obesity 757428197 E66.01 33.5 BMIHealthy Weight: {{4'10= 91-118 lbs 4'11= 94-123 lbs 5'= 97-127 lbs 5'1= 100-131 lbs 5'2= 104-135 5' 3= 107-140 lbs* 5'4= 110-144 lbs 5'5= 115-149 lbs 5'6= 118-154 lbs 5'7= 121-158 lbs 5'8= 125-163 lbs 5'9= 128-168 lbs 5'10= 132-173 lbs 5'11= 136-178 lbs 6'= 140-183 lbs 6'1= 144-188 lbs 6'2= 148-193 lbs 6'3= 152-199 lbs 6'4= 156-204 lbs}} Allergic rhinitis 249434 04 J30.9 otc zyrtec Gastroesop hageal reflux disease 845740118 K21.9 stable for now Obesity 728269407 E66.9 BMI 33.5Ht 5' 3 Healthy weight range 95-130 Chronic ki dney disease stage 5 on dialysis 082136192 Z99.2 [place] Body mass index 30+ - obesity 018395454 Z68.36 BMI 33.5Ht 5' 3 Healthy weight range 95-130 Diabetic p eripheral neuropathy 283244673 E11.40 stable Cyst of left ovary 75928 45508 2116355 N83.202 Patient has had cyst since 2018Patien t has been referred to MINE ENGINEER for this problem back in 2018 and again in 2021Transp lant team needs a MINE ENGINEER note clearing for kidney transplant Has not seen MINE ENGINEER yet-appoin tment scheduled for later Chronic constipation 236 640263 K59.09 Takes BisacodylT akes stool softener Nasal congestion 3153431 0 R09.81 Depression screening 171 059768 Z13.31 PHQ2-9 negative Mental hea lth screening 384773746 Z13.39 HAYLEY-7 negative Requires c ourse of hepatitis B vaccination 952062427 Z28.39 [id number] Jessie Crockett [facility] [address], [place] [address] 02/03/2023 11:22:33 02/04/2023 11:52:11 Body mass index 30+ - obesity 138330245 Z68.36 BMI 32.1Ht 5' 3 Healthy weight range 95-130 Depression screening 171 542759 Z13.31 PHQ2-9 wnl Mental hea [facility] screening 159226641 Z13.39 HAYLEY-7 negative Screening for malignant neoplasm of breast 431959196 Z12.31 patients' mother had breast cancer at 40 y/o Administra tion of influenza vaccine 94175221 Z23 [id number] Jessie Crockett, [facility] [address] [place] [address] 2023 11:02:07 03/13/2023 15:33:54 Uncontrolled type 2 diabetes mellitus 697959288 E11.65 Today HA1C 6.4random accucheck 178BS 150-260 range just with Lantus 8 units-has not been using Lispro insulin for a whilethe patient is currently not following with anyone for this problem she had been getting meds during ER visits-she had hospitaliz ation at [facility] 01/20/2021 found to be in ARF-starte d on dialysissh e presented here on 04/18/2021 [facility] now on [facility] with T[facility] in [facility] a[place] has transition ed to self dialysis-s he is interested in renal transplant -has consulted at [facility] and is on waiting listcurren tly using Lantus 10 units at HS-BS at home 69-160Pati ent stopped using Lispro insulin 5 units bid she has not been using secondary to low sugars and afraidPati ent is taking Labetalol 300mg bidHydrala zine 100mg bid Hypertensive disorder 38 827107 I10 BP Goal: {{Less than 140/90* Le ss than 150/90}}BP Controlled : {{yes* no} }Healthy Weight: {{4'10= 91-118 lbs 4'11= 94-123 lbs 5'= 97-127 lbs 5'1= 100-131 lbs 5'2= 104-135 5' 3= 107-140 lbs* 5'4= 110-144 lbs 5'5= 115-149 lbs 5'6= 118-154 lbs 5'7= 121-158 lbs 5'8= 125-163 lbs 5'9= 128-168 lbs 5'10= 132-173 lbs 5'11= 136-178 lbs 6'= 140-183 lbs 6'1= 144-188 lbs 6'2= 148-193 lbs 6'3= 152-199 lbs 6'4= 156-204 lbs}}Discu ssed: Low sodium balanced diet, moderate exercise at least 3-4 times per week for an average of 40 minutesNex t Visit: {{1 2 3* 4 5 6 7 8 9 10 11 12} }{{week(s) month(s)* }}Gets meds from Nephrologi st Patient is taking Hydralazin e 100mg bidPatient is taking Labetalol 300mg bid Vitamin D deficiency 347 07409 E55.9 Allergic rhinitis 073813 04 J30.9 otc zyrtec Morbid obesity 211055367 E66.01 BMI 32.6Health y Weight: {{4'10= 91-118 lbs 4'11= 94-123 lbs 5'= 97-127 lbs 5'1= 100-131 lbs 5'2= 104-135 5' 3= 107-140 lbs* 5'4= 110-144 lbs 5'5= 115-149 lbs 5'6= 118-154 lbs 5'7= 121-158 lbs 5'8= 125-163 lbs 5'9= 128-168 lbs 5'10= 132-173 lbs 5'11= 136-178 lbs 6'= 140-183 lbs 6'1= 144-188 lbs 6'2= 148-193 lbs 6'3= 152-199 lbs 6'4= 156-204 lbs}} Gastroesop hageal reflux disease 283376931 K21.9 stable for now Obesity 177917219 E66.9 BMI 32.6Ht 5' 3 Healthy weight range 95-130 Chronic ki dney disease stage 5 on dialysis 636176909 Z99.2 continue to [place] Body mass index 30+ - obesity 677873421 Z68.36 BMI 32.6Ht 5' 3 Healthy weight range 95-130 Diabetic p eripheral neuropathy 397369283 E11.40 stable Chronic constipation 236 530867 K59.09 Takes BisacodylT akes stool softener Nasal congestion 5585032 0 R09.81 Requires c ourse of hepatitis B vaccination 523154603 Z28.39 Depression screening 171 607824 Z13.31 PHQ2-9 negative Mental hea lth screening 629299014 Z13.39 HAYLEY-7 negative Administra tion of pneumococcal vaccine 90698273 Z23 Has DM2, CKD, Vaginitis 33853512 N76.0 c/o vaginal itching [id number] MARK Sargent [facility] [address] [place] [address] 09/08/2023 19:36:30 09/09/2023 08:36:21 Obesity 059994698 E66.8 Renewal of prescription 706335188 Z76.0 Diabetic p eripheral neuropathy 363604019 E11.40 Altered appetite 3109374 04 R63.8 Health Concerns Section Related Observation LastModified by Organization Detai ls LastModified Time None Recorded Concern Status LastModified by Organization Details LastModified Time None Recorded Advance Directives Directive N: Payers Encounter Date Sequence Insurance Name Policy Number Policy [place]ule[place] Covered Member ID [place]uleta Member ID Guarantor Name 06/11/2022 1 [place] Bakari Smith [id number] Bakari Smith 06/11/2022 2 [place] MED[place] REPLACEMENT PRIMARY) Bakari Smith [id number] Bakari Smith 10/06/2022 1 [place] Bak[place] [id number] Bakari Smith 10/06/2022 2 [place]AC[place] Bakari Smith [id number] Bakari Smith 02/03/2023 1 [place] Bak[place] Smith [id number] Bakari Smith 02/03/2023 2 [place]) Bakari Smith [id number] Bakari Smith 2023 1 [place] Bak[place] Smith [id number] Bakari Smith 2023 2 [place]PLACEMENT [place]) Bakari Smith [id number] Bakari Smith 09/08/2023 1 [place] Bakari Smith [id number] Bakari Smith 09/08/2023 2 [place]PLACEMENT [place]) Bakari Smith [id number] Bakari Smith Notes Date Note Type Note Provider Name and Address Organization Details Recorded Time 3 text/html 42 y/o AAF presents for follow up ER visit on 05/03/2022 to [facility] for severe headache. The patient has a history of end stage renal disease getting peritoneal dialysis nightly. The patient had a severe headache with nausea that was not responding to Excedrin. Hence, she called an ambulance and presented to hospital. She had intense nausea and vomiting. She had had some generalized weakness but no focal deficits. Head and neck CTA read as no significant abnormality. Head CT showed small region of decreased attenuation at left occipital lobe suspicious for relatively recent, potentially acute infarct which is new since 01/06/2022. The patient was started on Aspirin. She was given dilaudid, compazine, and hydralazine for her headache which resolved. The patient was admitted and neurology and nephrology were consulted The patients' BS were uncontrolled. She remained in the hospital for 3 days.The patient has not had any other headaches or neurological changes. She needs a referral to see neurology. The patient voices she is taking aspirin 81mg daily and has not started on Atorvastatin 80mg yet. KRISTY Topete- Attn: Accounting,[address] [place], [address], [place] [facility] 06/11/2022 15:17:36 3 text/html ConstipationReported bypatient.Quality:hard;dry ;straining;decreased frequency Severity:moderate Duration:present 5 or more years Onset/Timing:once a day Contextno recent opiates; no recent surgery; no anemia; normal toileting ability; no history of IBS; no history of Hirschsprung's; no family history of colon polyps or cancer; no history of colonoscopy; no history of Diverticulosis; no abnormal imaging;stress;history of chronic idiopathic constipation Alleviating Factors:having bowel movement Aggravating Factors:eating;stress Associated Symptoms:no abdominal pain; no excess gas; no fever; no rash; no joint pain; no nausea; no vomiting; no heartburn; no blood in stool; no mucus in stool; no black or tarry stools; no weakness; no nutrient deficiency; no fecal incontinence;weight loss (8 lbs);bloatingDiabetes F/UReported bypatient.Review finger sticks:fastin; post breakfast: ; pre dinner: ; post dinner: 260 Labs:last A1C result: 8 Context:seeing eye doctor regularly; no side effects from medications;home blood sugar range high;home blood sugar range low (below 70);not checking feet regularly;missing doses of medication Associated Symptoms:no weight gain; no dizziness; no sweats; no headaches; no confusion; no increased thirst; no increased appetite; no increased urination; no blurred vision; no numbness of feet; no calluses on feet;weight loss (16 lbs)Hypertension F/UReported bypatient.Associated Symptoms:no dizziness; no lightheadedness; no chest pain; no shortness of breath; no palpitations; no edema; no calf pain with exertion Lifestyle:limiting/avoidin g salt;not exercising regularly Medications:taking medications as directed; no side effects from medication 42 y/o AAF presents for follow up care at this health centershe presents today for follow up care at this centerShe continues to take:Hydralazine 100mg bidLisinopril 20mg dailylabetolol 300mg BIDFollows with DR Beth Barrett [facility] she is now doing dialysis 3 times per week MWF at home She has refills of meds per Dr Cervantes has not been taking admelog insulin feels it brings her BS downShe checks B/P at home-currently asymptomaticcurrently using Lantus 10 units at HS BS 151-260 at homeshe is back to work twice a week.she has lost weight, she has no appetitePatient requesting Rx for constipation-voices always has difficulty with constipation Dialysis center advises at least 1 BM dailyShe has seen Neurology and cardiology. She is on list for transplant voices was pushed back on list.She was in hospital for episode of hypoglycemia-aware that is because she doesnt eat on a regular basis. Mazinsorin RICCI Crockett Attn: Accounting,[address], [place], [address], [facility] 10/07/2022 10:01:14 3 text/html 42y/o AARene presents for CBE and mammogram order. She has no complaints. She continues to get dyalisis. She wants to get influenza vaccine. She has no contraindications. RICCI Topete Attn: Accounting,[address], [place], [address], [facility] 02/03/2023 12:30:19 4 text/html ConstipationReported bypatient.Quality:hard;dry ;straining;decreased frequency Severity:moderate Duration:present 5 or more years Onset/Timing:once a day Contextno recent opiates; no recent surgery; no anemia; normal toileting ability; no history of IBS; no history of Hirschsprung's; no family history of colon polyps or cancer; no history of colonoscopy; no history of Diverticulosis; no abnormal imaging;stress;history of chronic idiopathic constipation Alleviating Factors:having bowel movement Aggravating Factors:eating;stress Associated Symptoms:no abdominal pain; no excess gas; no fever; no rash; no joint pain; no nausea; no vomiting; no heartburn; no blood in stool; no mucus in stool; no black or tarry stools; no weakness; no nutrient deficiency; no fecal incontinence;weight loss (8 lbs);bloatingDiabetes F/UReported bypatient.Review finger sticks:fastin; post breakfast: ; pre dinner: ; post dinner: 260 Labs:last A1C result: 6.4 Context:seeing eye doctor regularly; no side effects from medications;home blood sugar range high;home blood sugar range low (below 70);not checking feet regularly;missing doses of medication Associated Symptoms:no weight gain; no dizziness; no sweats; no headaches; no confusion; no increased thirst; no increased appetite; no increased urination; no blurred vision; no numbness of feet; no calluses on feet;weight loss (16 lbs)Hypertension F/UReported bypatient.Associated Symptoms:no dizziness; no lightheadedness; no chest pain; no shortness of breath; no palpitations; no edema; no calf pain with exertion Lifestyle:limiting/avoidin g salt;not exercising regularly Medications:taking medications as directed; no side effects from medication 43 y/o AAF presents for follow up care at this health centershe presents today for follow up care at this centerShe continues to take:Hydralazine 100mg bidlabetolol 300mg BIDFollows with DR Beth Barrett [facility] she is now doing dialysis 3 times per week MWF at home She has refills of meds per Dr Barrett-SHE JUST HAD APPOINTMENT LAST WEEKShe has not been taking admelog insulin feels it brings her BS downShe checks B/P at home-currently asymptomaticcurrently using Lantus 10 units at HS BS 151-260 at homeshe is back to work twice a week.she has lost weight, she has no appetitePatient requesting Rx for constipation-voices always has difficulty with constipation Dialysis center advises at least 1 BM dailyShe has seen Neurology and cardiology. She is on list for transplant voices was pushed back on list.She has not had recent labs done. She received influenza vaccine a couple of months ago.Patient agrees to prevnar 20 and Hepatitis B vaccine. She has no contraindications. RICCI TopeteBC Attn: Accounting,[address] [facility], [place], [address], [facility] 04/02/2023 17:51:42 4 text/html Patient is here for medication refill. During assessment patient discloses that she is not eating. I will get hungry but then when I cook my food and try to eat it, I just cannot eat . Has had barium swallow and other tests but it is because I just cannot eat the food. When I eat gummies I eat without any issues. I don't understand it. I cannot keep doing gummies because I am on the transplant list and that is on the list of things I cannot do RICCI SargentC Attn: Accounting,[address] [facility], [place], [address], [facility] 09/08/2023 20:26:04 OBGyn Episode Ob Episode Information Episode Created Date Number of Fetuses Patient Bloodtype Patient rh Status Prepregnancy Weight lbs Domestic Partner Domestic Partner Phone Father Name Managing Editor Status 07/10/19 19 1 CLOSED Fetus Data First Name Last Name Admitted to NICU Weight (g) Sex Living Outcome Pediatric Complications Fetus ID Race Codes Race Delivery Type F [id number] Camilo Calculation Initial Camilo Date Initial Exam Date Initial Exam Provider Initial Ultrasound Date Last Menstrual Period Date Ultra Sound Weeks Gestation 0 Eighteen To Twenty Week Camilo Update Ultra Sound Date Fundal Height At Umbil Quickening Date Ultra Sound Latest Weeks Gestation Final Camilo Confirmed By Final Camilo Confirmed Date Final Camilo Date Ultra Sound Latest Days Gestation 0 0 Menstrual History Last Menstrual Date Menses Monthly On Bcp Conception Prior Menses Frequency Hcg Plus Date Menarche Onset Age Delivery Information Delivery Date Delivery Type Labor Anesthesia Weeks Gestation Incision Type Labor Labor Length Hrs Delivered By Post Complications Tubal Sterilization Discharge Date Comments 5 Discharge Information Feeding Method Contraceptive Method Maternal HG B and HCT Levels Ob Episode Information Episode Created Date Number of Fetuses Patient Bloodtype Patient rh Status Prepregnancy Weight lbs Domestic Partner Domestic Partner Phone Father Name Managing Editor Status 07/10/19 19 1 CLOSED Fetus Data First Name Last Name Admitted to NICU Weight (g) Sex Living Outcome Pediatric Complications Fetus ID Race Codes Race Delivery Type M [id number] Camilo Calculation Initial Camilo Date Initial Exam Date Initial Exam Provider Initial Ultrasound Date Last Menstrual Period Date Ultra Sound Weeks Gestation 0 Eighteen To Twenty Week Camilo Update Ultra Sound Date Fundal Height At Umbil Quickening Date Ultra Sound Latest Weeks Gestation Final Camilo Confirmed By Final Camilo Confirmed Date Final Camilo Date Ultra Sound Latest Days Gestation 0 0 Menstrual History Last Menstrual Date Menses Monthly On Bcp Conception Prior Menses Frequency Hcg Plus Date Menarche Onset Age Delivery Information Delivery Date Delivery Type Labor Anesthesia Weeks Gestation Incision Type Labor Labor Length Hrs Delivered By Post Complications Tubal Sterilization Discharge Date Comments 4 Discharge Information Feeding Method Contraceptive Method Maternal HG B and HCT Levels Ob Episode Information Episode Created Date Number of Fetuses Patient Bloodtype Patient rh Status Prepregnancy Weight lbs Domestic Partner Domestic Partner Phone Father Name Managing Editor Status 07/10/19 19 1 CLOSED Fetus Data First Name Last Name Admitted to NICU Weight (g) Sex Living Outcome Pediatric Complications Fetus ID Race Codes Race Delivery Type F [id number] Camilo Calculation Initial Camilo Date Initial Exam Date Initial Exam Provider Initial Ultrasound Date Last Menstrual Period Date Ultra Sound Weeks Gestation 0 Eighteen To Twenty Week Camilo Update Ultra Sound Date Fundal Height At Umbil Quickening Date Ultra Sound Latest Weeks Gestation Final Camilo Confirmed By Final Camilo Confirmed Date Final Camilo Date Ultra Sound Latest Days Gestation 0 0 Menstrual History Last Menstrual Date Menses Monthly On Bcp Conception Prior Menses Frequency Hcg Plus Date Menarche Onset Age Delivery Information Delivery Date Delivery Type Labor Anesthesia Weeks Gestation Incision Type Labor Labor Length Hrs Delivered By Post Complications Tubal Sterilization Discharge Date Comments 2 Discharge Information Feeding Method Contraceptive Method Maternal HG B and HCT Levels
--- OUTSIDE RECORDS SUMMARY | 2024-04-01 01:05 | XMS_ITS | Encounter Summary ---
Author Organization [facility] Health Address [address] [place] [address] Care Team Providers Care Air Conditioning Installer Supervisor Name Role Phone Jessie Dicksno OUTSOLE CEMENTER-CONSULTING SERVICES MANAGER Primary Care Pro vider Encounter Details Date Type Department Care Team (Late st Contact Info) Description 05/25/2018 Ophth Exam [facility] [place] [address] Regina Fritz MD [facility] [place] [address] Social History Tobacco Use Types Packs/Day Years Used Date Smoking Tobacco: Never Smokeless Tobacco: Never Alcohol Use Standard Drinks/Week Comments No 0 (1 standard drink = 0.6 oz pur e alcohol) socially. Sex and Gender Information Value Date Recorded Sex Assigned at Not on file Gender Identity Not on file Sexual Orientation Not on file documented as of this encounter Functional Status Functional Status Response Date of [...] person have difficulty concentrating/remembering/making decisions? No 05/25/2018 documented as of this encounter Plan of Treatment Not on file documented as of this encounter Visit Diagnoses Not on filedocumented in this encounter Care Teams Air Conditioning Installer Supervisor Relationship Specialty Start Date End Date Jessie Dickson, TAMMY-CONSULTING SERVICES MANAGER [address] [place] [id number] PCP - General 06/30/14 documented as of this encounter
--- OUTSIDE RECORDS SUMMARY | 2024-04-01 01:07 | XMS_ITS | Clinical Summary ---
[facility] Address [address] [place] [address] Care Team Providers Care Magnetic Tester Name Role Phone Almita Rizzo RN Unavailable Beth Fernandez MD Unavailable [phone] Maday Oviedo MD Unavailable [phone] Tomasz Scott DO Unavailable [phone] No, Physician Primary Care Provider [phone] Allergies Active Allergy Reactions Criticality Noted Date Comments Ibuprofen Stomach upset Low 04/20/2017 Metronidazole Itching,Rash,Hives Medium 04/21/2017 Omeprazole Rash Medium 04/21/2017 Medications hydrALAZINE (APRESOLINE) 100 mg tabletIndicati ons:hypertensi on Take 1 tablet (100 mg total) by mouth 2 (two) times a day Active insulin glargine (LANTUS) 100 unit/mL vial for injectionIndic ations:DM 2 Inject 10 Units under the skin nightly Active lisinopriL (PRINIVIL,ZEST RIL) 20 mg tabletIndicati ons:hypertensi on Take 1 tablet (20 mg total) by mouth 2 (two) times a day Active triamcinolone (KENALOG) 0.1 % creamIndicatio ns:skin rash Apply 1 g topically 2 (two) times a day HAND RASH 3 Active labetaloL (NORMODYNE,TRA NDATE) 300 mg tabletIndicati ons:hypertensi on Take 1 tablet (300 mg total) by mouth 2 (two) times a day 3 Active aspirin 81 mg enteric coated tabletIndicati ons:prevention of thrombosis Take 1 tablet (81 mg total) by mouth every morning Picking up all new prescriptions today-she will pick this up later today 05/06. Active oxyCODONE-acet aminophen (PERCOCET) 5-325 mg per tabletIndicati ons:Pain Take 1 tablet by mouth every 4 (four) hours as needed for pain 20 tablet 3 Active Additional Information Patient not taking.Reported on 06/24/2023 insulin aspart (NovoLOG) 100 unit/mL (3 mL) pen for injection Inject 20 Units under the skin 2 (two) times a day after breakfast and dinner Active lactulose solution 10 gram/15mL daily as needed (CONSTIPATION) Active atorvastatin (LIPITOR) 80 mg tablet Take 1 tablet (80 mg total) by mouth daily 3 Active cholecalcifero l (VITAMIN D-3) 5,000 unit tablet Take 1 tablet (5,000 Units total) by mouth daily 3 Active calcium acetate,phosph at bind, (PHOSLO) 667 mg capsule TAKE 2 CAPSULES BY MOUTH WITH EACH MEAL Active oxyCODONE (ROXICODONE) 5 mg immediate release tabletIndicati ons:Pain Take 1 tablet (5 mg total) by mouth every 4 (four) hours as needed for pain for up to 10 doses 10 tablet 4 Active gabapentin (NEURONTIN) 100 mg capsuleIndicat ions:Neuropath ic Pain Take 2 capsules (200 mg total) by mouth 3 (three) times a day 90 capsule 4 12/01/19 25 Active rOPINIRole (REQUIP) 0.5 mg tabletIndicati ons:Restless Legs Syndrome Take 1 tablet (0.5 mg total) by mouth 3 (three) times a day as needed (restless legs) for up to 30 doses 30 tablet 4 Active gabapentin (NEURONTIN) 100 mg capsule Take 2 capsules (200 mg total) by mouth 3 (three) times a day 60 capsule 4 Active rOPINIRole (REQUIP) 0.5 mg tabletIndicati ons:Restless Legs Syndrome Take 1 tablet (0.5 mg total) by mouth nightly at bedtime. 30 tablet 4 Active albuterol HFA (PROVENTIL HFA,VENTOLIN HFA,PROAIR HFA) 90 mcg/actuation inhaler Inhale 2 puffs every 4 (four) hours as needed for wheezing 6.7 g 4 Active benzonatate (TESSALON) 100 mg capsuleIndicat ions:Cough Take 1 capsule (100 mg total) by mouth 3 (three) times a day as needed for cough 15 capsule 4 Active Active Problems Problem Noted Date Diagnosed Date Screening for colorectal cancer 07/08/2023 Pre-transplant evaluation for kidney transplant 07/08/2023 Pain of left upper extremity 06/24/2023 Encounter for surgical after care following surgery of circulatory system 07/04/2022 Ovarian mass 04/10/2022 Overview (04/10/2022): Added automatically from request for surgery [id number] Hypertension 2021 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 ([facility]) 03/05/2021 Diabetic retinopathy associa graeme with type 2 diabetes mellitus 06/12/2015 Hyperlipidemia 06/29/2014 Type 2 diabetes mellitus 09/17/2012 Resolved Problems Problem Noted Date Diagnosed Date Resolved Date 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 04/09/2022 Acute retrobulbar neuritis 05/24/2018 0 04/09/2022 Blurring of visual image 05/24/2018 Vitamin D deficiency disease 09/17/2012 04/09/2022 Diabetes mellitus 06/21/2010 04/09/2022 Encounters Date Type Department Care Team Description 03/22/2024 Documentation [facility] Trans[facility] [address] [facility] [address] [id number] [place] [address] Almita Rizzo RN Waitlist Maintenance 02/29/2024 Telephone [facility]ney [address] [facility] [address] [id number] [place] [address] Almita Rizzo RN Waitlist Maintenance 02/26/2024 10:00 AM TRANSCRIPT CLERK - 02/26/2024 11:59 PM TRANSCRIPT CLERK Hospital Encounter [address] [address] Pre-transplant evaluation for kidney transplant; ESRD (end stage renal disease) (CMS/HCC) ([facility]) Discharge Disposition: Discharge to home or self care 02/26/2024 7:21 AM TRANSCRIPT CLERK - 02/26/2024 11:59 PM TRANSCRIPT CLERK Hospital Encounter [facility] [address] [place] [address] Pre-kidney transplant, patient on transplant list; ESRD (end stage renal disease) (CMS/HCC) ([facility]) Discharge Disposition: Discharge to home or self care 02/18/2024 Documentation [facility] [address] [facility] [address] [phone] [place] [address] Anjali Gastelum Appointment/Schedul es 02/18/2024 Documentation [facility] Transplant Kidney [address] [facility] [address] [phone] [place] [address] Almita Rizzo RN Waitlist Maintenance 02/16/2024 11:25 AM TRANSCRIPT CLERK Lab [facility] ([facility]) [address] [place] [phone] Pre-kidney transplant, patient on transplant list; ESRD (end stage renal disease) (CMS/HCC) ([facility]) 01/26/2024 10:00 AM TRANSCRIPT CLERK - 01/26/2024 11:59 PM TRANSCRIPT CLERK Hospital Encounter [address] [address] Pre-transplant evaluation for kidney transplant; ESRD (end stage renal disease) (CMS/HCC) ([facility]) Discharge Disposition: Discharge to home or self care 01/25/2024 Telephone [facility] Transplant Kidney [address] [facility] [address] [phone] [place] [address] Kathryn Still 01/08/2024 2:57 AM TRANSCRIPT CLERK - 01/08/2024 9:59 AM TRANSCRIPT CLERK Emergency [facility] Emergency Department [address] [place] [address] Amauri Greene MD PhD Orr, Brandan Martinez MD Shortness of breath (Primary Dx); Pneumonia due to infectious organism, unspecified laterality, unspecified part of lung Discharge Disposition: Discharge to home or self care from Last 3 Months Immunizations Name Administration Dates Next Due Hep B Vaccine 2023,10/06/2022,04/18/2021 Influenza, Quadrivalent, Spl it, Intramuscular 02/03/2023,12/27/2021 Pneumococcal Conjugate 7-Valent 03/03/2018 Pneumococcal Conjugate PCV 13 04/18/2021 Pneumococcal Conjugate Pcv20 2023 Pneumococcal Polysaccharide PPV23 07/09/2017 Tdap 07/09/2017 Surgical History Surgery Date Site/Laterality Comments SECTION 1994,1994,2001 CHOLECYSTECTOMY 02/23/2017 - 02/22/2018 APPENDECTOMY 02/23/2017 - 02/22/2018 OOPHORECTOMY 02/23/2017 - 02/22/2018 Right TUBAL LIGATION 02/23/2005 - 02/22/2006 AV FISTULA PLACEMENT 02/06/2020 AV FISTULA PLACEMENT 05/08/2022 Medical History Medical History Date Comments Type 2 diabetes mellitus (HCC) 09/17/2012 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 (CMS/HCC) (HCC) 03/05/2021 Hypertension 2021 Family History Medical History Relation Name Comments Hypertension Father Breast cancer Mother Diabetes Mother Kidney disease Mother's Sister Diabetes Sister 1 Hypertension Sister 1 Stroke Sister 1 Rheum arthritis Sister 2 Anesthesia problems Neg Hx Relation Name Status Comments Father Mother Mother's Sister Sister 1 Sister 2 Social History Tobacco Use Types Packs/Day Years Used Date Smoking Tobacco: Never Passive Smoke Exposure: Past Smokeless Tobacco: Never Tobacco Cessation:Counseling Given: Not Answered AUDIT-C Answer Date Recorded Q1: How often do you have a drink containing alcohol? Never 07/21/2023 Q2: How many drinks containi ng alcohol do you have on a typical day when you are drinking? Patient does not drink Q3: How often do you have si x or more drinks on one occasion? Never 07/21/2023 Personal Safety Answer Date Recorded Have you ever been in or are you currently in a harmful physical or emotional relationship or is someone making you feel afraid or unsafe? Denies 02/26/2024 Comments No Sex and Gender Information Value Date Recorded Sex Assigned at Not on file Legal Sex Female 11:50 PM TRANSCRIPT CLERK Gender Identity Not on file Sexual Orientation Not on file Obstetrics History Para Term AB IAB SAB Ectopic Multiple Livin g Live Births 3 3 2 Date Outcome GA Total Labor Labor/2nd/3rd Weight Sex Type Anes PTL Yris A1 A5 Name Clin Para Para Para Last Filed Vital Signs Vital Sign Reading Time Taken Comments Blood Pressure 165/85 02/26/2024 10:12 AM TRANSCRIPT CLERK Pulse 100 02/26/2024 10:12 AM TRANSCRIPT CLERK Temperature 36.7 C (98.1 F) 01/08/2024 9:45 AM TRANSCRIPT CLERK Respiratory Rate 16 01/08/2024 8:30 AM TRANSCRIPT CLERK Oxygen Saturation 97% 01/08/2024 9:30 AM TRANSCRIPT CLERK Inhaled Oxygen Concentration - - Weight 90.7 kg (200 lb) 02/26/2024 8:40 AM TRANSCRIPT CLERK Height 160 cm (5' 3 ) 02/26/2024 8:40 AM TRANSCRIPT CLERK Body Mass Index 35.43 02/26/2024 8:40 AM TRANSCRIPT CLERK Plan of Treatment Health Maintenance Due Date Last Done Comments Albumin Creatinine Ratio, Urine 1978 Cervical Cancer Screening 1978 Depression Screening 1978 Dilated Eye Exam 1978 Foot Exam 1978 Regular Well Visit/Exam 18-64 1996 Lipid Panel 04/30/2022 04/30/2021, 05/22/2018 Influenza Vaccine (#1) 2023 02/03/2023, 2021 Breast Cancer Screening-Mammogram 03/19/2024 03/19/2023, 06/04/2021 Hemoglobin A1C 08/16/2024 02/16/2024, 1209/2022, 05/23/2022, Additional history exists eGFR 02/15/2025 02/16/2024, 12/24, 12/01/2023, Additional history exists DTaP/Tdap/Td Vaccine (2 - Td or Tdap) 07/10/2027 07/09/2017 Colon Cancer Screening-Colonoscopy 07/20/2033 07/21/2023 Pneumococcal vaccine <65 Completed 024, 04/18/2021, 03/03/2018, Additional history exists Hepatitis C Screening Completed 02/16/2024 , 01/30/2023, 04/30/2021 HPV Vaccines Aged Out No longer eligi ble based on patient's age to complete this topic Medical Devices Implanted Type Area Air Value Tester Device Identifier Shelf Expiration Date Model / Serial / Lot [employer] [id number] [place] 15fr 62cm 2 Cuff Radiopaque Peritoneal Curl Catheter - Sn/A - [id number] Implanted:Qty : 1 on 03/14/2021 by Gildardo Leggett MD at [facility] Catheter N/A: Abdomen [employer] 07/01/2025 [id number] / N/A / [id number] Description:Peritoneal Dialy sis Catheter, Curl Cath, 2 Cuffs Graft Vasc 45cm 4-6mm Ceres Acuseal Eptfe 3 Layer Kink Rst - [id number] - [id number] Implanted:Qty : 1 on 05/08/2022 by Uche Katz MD at [facility] Graft Left: Arm [employer] [id number] 05/21/2024 [id number] / [id number] / 00 Procedures Procedure Name Priority Date/Time Associated Diagnosis Comments STRESS ECHO PHARMACOLOGIC W DOPPLER/CF W CONTRAST Routine 02/26/2024 10:12 AM TRANSCRIPT CLERK Pre-kidney transplant, patient on transplant list ESRD (end stage renal disease) ([facility]) ([facility]) HLA ANTIBODY SCREEN BY PRA OR SAB PER SCHEDULE (CLASS I AND CLASS II) Routine 02/26/2024 10:00 AM TRANSCRIPT CLERK Pre-transplant evaluation for kidney transplant ESRD (end stage renal disease) ([facility]/HCC) ([facility]) EGFR Routine 02/16/2024 11:34 AM TRANSCRIPT CLERK Pre-kidney transplant, patient on transplant list ESRD (end stage renal disease) ([facility]/HCC) ([facility]) DIFFERENTIAL AUTO Routine 02/16/2024 11: 34 AM TRANSCRIPT CLERK Pre-kidney transplant, patient on transplant list ESRD (end stage renal disease) (CMS/HCC) (HCC) CBC WITH AUTO DIFFERENTIAL Routine 02/16/2024 11:34 AM TRANSCRIPT CLERK Pre-kidney transplant, patient on transplant list ESRD (end stage renal disease) (CMS/HCC) (HCC) COMPREHENSIVE METABOLIC PANEL Routine 02/16/2024 11:34 AM TRANSCRIPT CLERK Pre-kidney transplant, patient on transplant list ESRD (end stage renal disease) (CMS/HCC) (HCC) PHOSPHORUS Routine 02/16/2024 11:34 AM TRANSCRIPT CLERK Pre-kidney transplant, patient on transplant list ESRD (end stage renal disease) (CMS/HCC) (HCC) PTH Routine 02/16/2024 11:34 AM TRANSCRIPT CLERK Pre-kidney transplant, patient on transplant list ESRD (end stage renal disease) (CMS/HCC) (HCC) HEMOGLOBIN A1C Routine 02/16/2024 11:34 AM TRANSCRIPT CLERK Pre-kidney transplant, patient on transplant list ESRD (end stage renal disease) (CMS/HCC) (HCC) HIV 1/2 ANTIBODY PLUS P24 ANTIGEN Routine 02/16/2024 11:34 AM TRANSCRIPT CLERK Pre-kidney transplant, patient on transplant list ESRD (end stage renal disease) (CMS/HCC) (HCC) HEPATITIS B SURFACE ANTIBODY (IMMUNE STATUS) Routine 02/16/2024 11:34 AM TRANSCRIPT CLERK Pre-kidney transplant, patient on transplant list ESRD (end stage renal disease) (CMS/HCC) (HCC) HEPATITIS B SURFACE ANTIGEN Routine 02/16/2024 11:34 AM TRANSCRIPT CLERK Pre-kidney transplant, patient on transplant list ESRD (end stage renal disease) (CMS/HCC) (HCC) HEPATITIS C ANTIBODY Routine 02/16/2024 11:34 AM TRANSCRIPT CLERK Pre-kidney transplant, patient on transplant list ESRD (end stage renal disease) (CMS/HCC) (HCC) HEPATITIS B CORE ANTIBODY, TOTAL Routine 02/16/2024 11:34 AM TRANSCRIPT CLERK Pre-kidney transplant, patient on transplant list ESRD (end stage renal disease) ([facility]) ([facility]) HLA ANTIBODY SCREEN - SAB (CLASS I AND CLASS II) Routine 01/26/2024 10:00 AM TRANSCRIPT CLERK Pre-transplant evaluation for kidney transplant ESRD (end stage renal disease) ([facility]) ([facility]) HLA ANTIBODY SCREEN BY PRA OR SAB PER SCHEDULE (CLASS I AND CLASS II) Routine 01/26/2024 10:00 AM TRANSCRIPT CLERK Pre-transplant evaluation for kidney transplant ESRD (end stage renal disease) ([facility]) ([facility]) POCT GLUCOSE DEVICE Routine 01/08/2024 9 :44 AM TRANSCRIPT CLERK TROPONIN I HIGH-SENSITIVITY 4-HOUR Timed 01/08/2024 7:44 AM TRANSCRIPT CLERK POCT GLUCOSE DEVICE Routine 01/08/2024 7 :43 AM TRANSCRIPT CLERK POCT GLUCOSE DEVICE Routine 01/08/2024 5 :48 AM TRANSCRIPT CLERK CRITICAL RESULT CALLBACK CARDIO CHEM Timed 01/08/2024 5:47 AM TRANSCRIPT CLERK TROPONIN I HIGH-SENSITIVITY 2-HOUR Timed 01/08/2024 5:47 AM TRANSCRIPT CLERK MDI INSTRUCT STAT 01/08/2024 4:48 AM TRANSCRIPT CLERK EGFR STAT 01/08/2024 3:39 AM TRANSCRIPT CLERK DIFFERENTIAL AUTO STAT 01/08/2024 3:3 9 AM TRANSCRIPT CLERK TROPONIN I HIGH-SENSITIVITY SERIES (BASELINE, 2HR, 4HR, 6HR) STAT 01/08/2024 3:39 AM TRANSCRIPT CLERK CBC WITH AUTO DIFFERENTIAL STAT 01/08/2024 3:39 AM TRANSCRIPT CLERK COMPREHENSIVE METABOLIC PANEL STAT 01/08/2024 3:39 AM TRANSCRIPT CLERK XR CHEST PA LATERAL 2 VIEWS ED 01/07/2024 10:56 PM TRANSCRIPT CLERK ECG 12-LEAD STAT 01/07/2024 10:21 PM TRANSCRIPT CLERK POCT GLUCOSE DEVICE Routine 01/07/2024 1 0:21 PM TRANSCRIPT CLERK COLONOSCOPY 07/21/2023 10:23 AM CDT HM MAMMOGRAPHY Routine 06/04/2021 LIPID PANEL Routine 04/30/2021 12:22 PM TRANSCRIPT CLERK Pre-transplant evaluation for kidney transplant End stage renal disease (CMS/HCC) (HCC) from Last 3 Months or Most Recently Relevant to Health Maintenance Results * STRESS ECHO PHARMACOLOGIC W DOPPLER/CF W CONTRAST (02/26/2024 10:12 AM TRANSCRIPT CLERK) LV EF 58 % CARDIOREPORT Anatomical Region Laterality Modality Ultrasound 02/26/2024 8:00 AM TRANSCRIPT CLERK Narrative 02/26/2024 11:07 AM TRANSCRIPT CLERK Patient name: Bakari Smiht Date of test: 02/26/2024 Hospital #: [id number] Location: [facility] Interpreted by: Kip Pena M.D. Ph.D. Stock Sorter: Lainey Oh RDCS RN: Hilda Monk RN Reason for Test: pre-kidney transplant evaluation Study quality: Technically good Referring Physician: TONYA HAMMONDS MD Contrast Agent: 0.45 ml Definity Administered, (1.05 ml wasted). BASELINE STUDY: Wall Motion Scoring (1=Normal 2=Hypo 3=Akinetic 4=Dyskin./Aneurysm 0=Not visualized) Parasternal Long [place]:MAS=1 BAS=1 MIL=1 RENATO=1 Parasternal Short [place]:MAS=1 MIS=1 IL=1 MIL=1 MAL=1 MA=1 Apical 4 Chambers:=1 MIS=1 BIS=1 BAL=1 MAL=1 AL=1 AC=1 Apical 2 Chambers:AI=1 IL=1 BI=1 BA=1 MA=1 AA=1 AC=1 Ejection Fraction: 58% LV Global Function: Normal left ventricular systolic function. Baseline Echo Comments: Normal LV cavity size, moderate concentric LVH. Normal LV systolic function, estimated LVEF = 58%. Strain quality is inadequate for accurate reporting. Normal IVC size and respiratory variation. Normal aortic root size. Doppler/CF Comments: Mild MR. Trace TR. No /AR/MS seen. Inadequate TR doppler to estimate PASP. Indeterminate LV diastolic function. Baseline HR: 86 Baseline BP: 210/80 Conduction Defects: None Resting ECG Comments: Siinus rhythm. Medications: Albuterol, Aspirin, Atorvastatin, Hydralazine, Labetalol Meds held: Labetaolol POST DOBUTAMINE STUDY: Wall Motion Scoring (1=Normal 2=Hypo 3=Akinetic 4=Dyskin./Aneurysm 0=Not visualized) Parasternal Long [place]:MAS=1 BAS=1 MIL=1 RENATO=1 Parasternal Short [place]:MAS=1 MIS=1 IL=1 MIL=1 MAL=1 MA=1 Apical 4 Chambers:=1 MIS=1 BIS=1 BAL=1 MAL=1 AL=1 AC=1 Apical 2 Chambers:AI=1 IL=1 BI=1 BA=1 MA=1 AA=1 AC=1 Intravenous dobutamine was infused to a maximal dose 40 micro-g/Kg/min. Atropine: 0.4 mg. Other Med: Peak HR: 151 Peak BP: 216/84 Post-Exercise Comments: Marked increase in the LV and RV contractility, no segmental wall motion abnormalities. Test terminated: Stress ECG Comments: No ischemic changes or arrhythmia. CONTRAST ENHANCEMENT WAS EMPLOYED after initial imaging due to sub-optimal quality related to co-morbidity defined by patient's body habitus. Impression: 1) Maximal Dobutamine Stress Echocardiogram, NEGATIVE for myocardial ischemia. 2) Patient was initially stressed with exercise but switched to dobutamine due to submaximal HR with exercise (Time : 4:29, peak HR 106, 60% of MPHR). Confirmed on 02/26/2024 - 11:07:20 by Kip Pena M.D. Ph.D. By signing this report, the attending blood bank calendar control clerk certifies that he or she has personally supervised and interpreted the echocardiogram and has reviewed and or edited and agrees with the written comments contained within the report. Procedure Note Kip Pena MD PhD - 02/26/2024 Patient name: Bakari Smith Date of test: 02/26/2024 Hospital #: 0 Location: [facility] Interpreted by: Kip Pena M.D. Ph.D. Stock Sorter: Lainey Oh RDCS RN: Hilda Monk RN Reason for Test: pre-kidney transplant evaluation Study quality: Technically good Referring Physician: TONYA HAMMONDS MD Contrast Agent: 0.45 ml Definity Administered, (1.05 ml wasted). BASELINE STUDY: Wall Motion Scoring (1=Normal 2=Hypo 3=Akinetic 4=Dyskin./Aneurysm 0=Not visualized) Parasternal Long [place]:MAS=1 BAS=1 MIL=1 RENATO=1 Parasternal Short [place]:MAS=1 MIS=1 IL=1 MIL=1 MAL=1 MA=1 Apical 4 Chambers:=1 MIS=1 BIS=1 BAL=1 MAL=1 AL=1 AC=1 Apical 2 Chambers:AI=1 IL=1 BI=1 BA=1 MA=1 AA=1 AC=1 Ejection Fraction: 58% LV Global Function: Normal left ventricular systolic function. Baseline Echo Comments: Normal LV cavity size, moderate concentric LVH. Normal LV systolic function, estimated LVEF = 58%. Strain quality is inadequate for accurate reporting. Normal IVC size and respiratory variation. Normal aortic root size. Doppler/CF Comments: Mild MR. Trace TR. No /AR/MS seen. Inadequate TR doppler to estimate PASP. Indeterminate LV diastolic function. Baseline HR: 86 Baseline BP: 210/80 Conduction Defects: None Resting ECG Comments: Siinus rhythm. Medications: Albuterol, Aspirin, Atorvastatin, Hydralazine, Labetalol Meds held: Labetaolol POST DOBUTAMINE STUDY: Wall Motion Scoring (1=Normal 2=Hypo 3=Akinetic 4=Dyskin./Aneurysm 0=Not visualized) Parasternal Long [place]:MAS=1 BAS=1 MIL=1 RENATO=1 Parasternal Short [place]:MAS=1 MIS=1 IL=1 MIL=1 MAL=1 MA=1 Apical 4 Chambers:=1 MIS=1 BIS=1 BAL=1 MAL=1 AL=1 AC=1 Apical 2 Chambers:AI=1 IL=1 BI=1 BA=1 MA=1 AA=1 AC=1 Intravenous dobutamine was infused to a maximal dose 40 micro-g/Kg/min. Atropine: 0.4 mg. Other Med: Peak HR: 151 Peak BP: 216/84 Post-Exercise Comments: Marked increase in the LV and RV contractility, no segmental wall motion abnormalities. Test terminated: Stress ECG Comments: No ischemic changes or arrhythmia. CONTRAST ENHANCEMENT WAS EMPLOYED after initial imaging due to sub-optimal quality related to co-morbidity defined by patient's body habitus. Impression: 1) Maximal Dobutamine Stress Echocardiogram, NEGATIVE for myocardial ischemia. 2) Patient was initially stressed with exercise but switched to dobutamine due to submaximal HR with exercise (Time : 4:29, peak HR 106, 60% of MPHR). Confirmed on 02/26/2024 - 11:07:20 by Kip Pena M.D. Ph.D. By signing this report, the attending blood bank calendar control clerk certifies that he or she has personally supervised and interpreted the echocardiogram and has reviewed and or edited and agrees with the written comments contained within the report. us Tonya Hammonsd MD CV ECHO PROCEDURES Final Result * HLA Antibody Screen by PRA or SAB per Schedule (Class I and Class II) (02/26/2024 10:00 AM TRANSCRIPT CLERK) Blood 02/26/2024 10:0 0 AM TRANSCRIPT CLERK Narrative HISTOTRAC - TRANSCRIPT CLERK Sample received in lab and stored. No testing performed at this time. us Bashir Alston MD LAB BLOOD ORDERABLES Final R esult HISTOTRAC * (ABNORMAL) eGFR (02/16/2024 11:34 AM TRANSCRIPT CLERK) eGFR 4(L) >=60 mL/min/1. 73 m2 Comment: Interpretive Data Reference Interval Normal >/= 90 mL/min/1.73m2 Mildly decreased* 60 - 89 mL/min/1.73m2 Mildly to moderately decreased 45 - 59 mL/min/1.73m2 Moderately to severely decreased 30 - 44 mL/min/1.73m2 Severely decreased 15 - 29 mL/min/1.73m2 Kidney Failure < 15 mL/min/1.73m2 *Relative to young adult level Estimated glomerular filtration rate is determined by the 2020 CKD-EPI equation recommended by the National Kidney Foundation (A Unifying Approach to GFR Estimation: Recommendations of the NKF-ASK Task Force on Reassessing the Inclusion of Race in Diagnosing Kidney Disease, JASN 2020). The CKD-EPI equation should not be used for patients with unstable renal function and has not been validated in children and those over 70. Current interpretive data was last reviewed 2020. Blood 02/16/2024 11:3 4 AM TRANSCRIPT CLERK 02/16/2024 12:02 PM TRANSCRIPT CLERK us Tonya Hammonds MD LAB BLOOD ORDERABLE S Final Result Performing Organization Address City/[facility]/ZIP Co de Phone Number [facility] Department [place] [address] * Differential, auto (02/16/2024 11:34 AM TRANSCRIPT CLERK) Neutrophil abs 5.1 1.5 - 6.5 K/cumm Imm gran abs 0.1 0.0 - 0.1 K/cumm [facility] Lymphocyte abs 2.0 0.8 - 3.3 K/cumm [facility] Monocyte abs 0.6 0.2 - 0.8 K/cumm [facility] Eosinophil abs 0.1 0.0 - 0.5 K/cumm [facility] Basophil abs 0.0 0.0 - 0.1 K/cumm [facility] Neutrophil pct 64.7 % [facility] Comment: Interpretive Data Percent cell count reference ranges are not reported, since discordance with absolute values may lead to misinterpretation of CBC data. Current Interpretive Data was last revised on 2017. Imm gran pct 0.6 % [facility] Comment: Interpretive Data Percent cell count reference ranges are not reported, since discordance with absolute values may lead to misinterpretation of CBC data. Current Interpretive Data was last revised on 2017. Lymphocyte pct 25.3 % [facility] Comment: Interpretive Data Percent cell count reference ranges are not reported, since discordance with absolute values may lead to misinterpretation of CBC data. Current Interpretive Data was last revised on 2017. Monocyte pct 7.3 % [facility] Comment: Interpretive Data Percent cell count reference ranges are not reported, since discordance with absolute values may lead to misinterpretation of CBC data. Current Interpretive Data was last revised on 2017. Eosinophil pct 1.8 % [facility] Comment: Interpretive Data Percent cell count reference ranges are not reported, since discordance with absolute values may lead to misinterpretation of CBC data. Current Interpretive Data was last revised on 2017. Basophil pct 0.3 % [facility] Comment: Interpretive Data Percent cell count reference ranges are not reported, since discordance with absolute values may lead to misinterpretation of CBC data. Current Interpretive Data was last revised on 2017. Blood 02/16/2024 11:3 4 AM TRANSCRIPT CLERK 02/16/2024 11:45 AM TRANSCRIPT CLERK us Tonya Hammonds MD LAB BLOOD ORDERABLE S Final Result [facility] [place] [address] * HIV 1/2 Antibody plus p24 Antigen Blood (02/16/2024 11:34 AM TRANSCRIPT CLERK) [facility] HIV 1/2 ab + p24 ag Nonreactive Nonreactive Comment:Nonreactive for HIV- 1 antigen and HIV-1/HIV-2 antibodies. No laboratory evidence of HIV infection. If acute HIV infection is suspected, consider testing for HIV-1 RNA. Current interpretive data was last revised on 21. Blood 02/16/2024 11:3 4 AM TRANSCRIPT CLERK 02/16/2024 11:45 AM TRANSCRIPT CLERK us Tonya Hammonds MD LAB MICROBIOLOGY - GENERAL ORDERABLES Final Result [facility] One [facility] [place] [address] * (ABNORMAL) CBC with auto differential (02/16/2024 11:34 AM TRANSCRIPT CLERK) [facility] WBC 7.8 3.8 - 9.9 K/cumm Hgb 8.6(L) 11.9 - 15.5 g/dL [facility] Hct 28.3(L) 35.6 - 45.5 % [facility] Plt 265 150 - 400 K/cumm [facility] MPV 10.2 9.1 - 12.3 fL [facility] RBC 3.24(L) 3.90 - 5.20 M/cumm [facility] MCV 87.3 81.3 - 96.4 fL [facility] MCH 26.5(L) 27.1 - 33.3 pg [facility] MCHC 30.4(L) 32.3 - 35.7 g/dL [facility] RDW CV 14.9 11.1 - 14.9 % [facility] RDW SD 48.1 35.7 - 48.1 fL [facility] NRBC abs 0.00 0.00 - 0.01 K/cumm [facility] Blood 02/16/2024 11:3 4 AM TRANSCRIPT CLERK 02/16/2024 11:45 AM TRANSCRIPT CLERK Tonya Hammonds MD LAB BLOOD ORDERABLE S Final Result Performing Organization Address [facility] Co de Phone Number [facility] [place] [address] * Hepatitis C antibody Blood (02/16/2024 11:34 AM TRANSCRIPT CLERK) Hep C Ab Nonreactive Nonreactive Comment:Antibodies to HCV no t detected. Does NOT exclude the possibility of recent exposure to HCV. Current interpretive data was last revised on 21 Blood 02/16/2024 11:3 4 AM TRANSCRIPT CLERK 02/16/2024 11:45 AM TRANSCRIPT CLERK us Tonya Hammonds MD LAB MICROBIOLOGY - GENERAL ORDERABLES Final Result Performing Organization Address [facility] Co de Phone Number [facility] [place] [address] * Hepatitis B core antibody, total Blood (02/16/2024 11:34 AM TRANSCRIPT CLERK) Pathologist [facility] Hep B core IgG/IgM Nonreactive Nonreactive Blood 02/16/2024 11:3 4 AM TRANSCRIPT CLERK 02/16/2024 11:45 AM TRANSCRIPT CLERK us Tonya Hammonds MD LAB MICROBIOLOGY - GENERAL ORDERABLES Final Result Performing Organization Address [facility] Co de Phone Number [facility] [place] [address] * Hepatitis B surface antibody (immune status) Blood (02/16/2024 11:34 AM TRANSCRIPT CLERK) Pathologist [facility] HBsAb (immune status) Reactive Comment:This result is consi stent with immunity to Hepatitis B Virus when used in the setting of routine screening. Current interpretive data was last revised on 21 HBsAb (immune status) index 221.0 mIUnits/m L [facility] Blood 02/16/2024 11:3 4 AM TRANSCRIPT CLERK 02/16/2024 11:45 AM TRANSCRIPT CLERK us Tonya Hammonds MD LAB MICROBIOLOGY - GENERAL ORDERABLES Final Result Performing Organization Address [facility] Co de Phone Number [facility] [place] [address] * Hepatitis B Surface Antigen Blood (02/16/2024 11:34 AM TRANSCRIPT CLERK) HepBsAg Nonreactive Nonreactive Blood 02/16/2024 11:3 4 AM TRANSCRIPT CLERK 02/16/2024 11:45 AM TRANSCRIPT CLERK us Tonya Hammonds MD LAB MICROBIOLOGY - GENERAL ORDERABLES Final Result Performing Organization Address [facility] de Phone Number [facility] [place] [address] * (ABNORMAL) Phosphorus (02/16/2024 11:34 AM TRANSCRIPT CLERK) Phosphorus, pl 5.6(H) 2.3 - 4.5 mg/dL Blood 02/16/2024 11:3 4 AM TRANSCRIPT CLERK 02/16/2024 11:45 AM TRANSCRIPT CLERK us Tonya Hammonds MD LAB BLOOD ORDERABLE S Final Result Performing Organization Address [facility] de Phone Number [facility] [place] [address] * (ABNORMAL) PTH (02/16/2024 11:34 AM TRANSCRIPT CLERK) PTH 335(H) 15 - 65 pg/mL Blood 02/16/2024 11:3 4 AM TRANSCRIPT CLERK 02/16/2024 11:45 AM TRANSCRIPT CLERK Tonya Hammonds MD LAB BLOOD ORDERABLE S Final Result Performing Organization Address City/[facility]/ZIP Co de Phone Number [facility] [place] [address] * (ABNORMAL) Hemoglobin A1c (02/16/2024 11:34 AM TRANSCRIPT CLERK) [facility] Hgb A1C 6.2(H) 4.0 - 5.6 % Estimated Average Glucose 131 mg/dL [facility] Comment: The ADA recommends reporting an estimated Average Glucose (eAG) with all Hemoglobin A1c results using the equation derived from a study of 507 normal and diabetic adults. Minority populations were underrepresented and children were not included. (Diabetes Care 2020; 43(S1): S66-S76). The eAG is not equivalent to a fasting glucose. Blood 02/16/2024 11:3 4 AM TRANSCRIPT CLERK 02/16/2024 11:45 AM TRANSCRIPT CLERK Tonya Hammonds MD LAB BLOOD ORDERABLE S Final Result Performing Organization Address [facility] de Phone Number [facility] [place] [address] * (ABNORMAL) Comprehensive metabolic panel (02/16/2024 11:34 AM TRANSCRIPT CLERK) [facility] Sodium 140 135 - 145 mmol/L Potassium, pl 4.4 3.3 - 4.9 mmol/L [facility] Chloride 102 97 - 110 mmol/L [facility] CO2 28 22 - 32 mmol/L [facility] Anion gap 10 2 - 15 mmol/L [facility] BUN 46(H) 6 - 25 mg/dL [facility] Creatinine 10.77(H) 0.60 - 1.10 mg/dL [facility] Glucose 223(H) 70 - 199 mg/dL [facility] Comment: Interpretive Data Fasting glucose >/= 126 mg/dl is diagnostic for diabetes. Fasting is defined as no caloric intake for at least 8 hours. Fasting glucose between 100 mg/dl to 125 mg/dl is diagnostic of prediabetes. In a patient with classic symptoms of hyperglycemia or hyperglycemic crisis, a random glucose >/= 200 mg/dl is diagnostic for diabetes. In the absence of unequivocal hyperglycemia, results should be confirmed by repeat testing. The classification and Diagnosis of Diabetes Diabetes Care 2021; 46: S19-S40. Current interpretive data was last revised 2022. Calcium 8.8 8.5 - 10.3 mg/dL [facility] Bilirubin, total 0.2 0.1 - 1.2 mg/dL [facility] Protein, pl 6.8 6.5 - 8.5 g/dL [facility] Albumin 3.1(L) 3.5 - 5.0 g/dL [facility] Alk phos 233(H) 40 - 130 Units/L [facility] ALT 57(H) 7 - 45 Units/L [facility] AST 50(H) 10 - 45 Units/L [facility] Blood 02/16/2024 11:3 4 AM TRANSCRIPT CLERK 02/16/2024 11:45 AM TRANSCRIPT CLERK us Tonya Hammonds MD LAB BLOOD ORDERABLE S Final Result [facility] One [facility] [place] [address] * HLA Antibody Screen by PRA or SAB per Schedule (Class I and Class II) (01/26/2024 10:00 AM TRANSCRIPT CLERK) Blood 01/26/2024 10:0 0 AM TRANSCRIPT CLERK Narrative [facility] - TRANSCRIPT CLERK Sample received in lab. Single Antigen Antibody Screen ordered. us Bashir Alston MD LAB BLOOD ORDERABLES Final R esult [facility] * HLA Antibody Screen - SAB (Class I and Class II) (01/26/2024 10:00 AM TRANSCRIPT CLERK) Class I Treatment EDTA [facility] Class I Dilution 1:1 [facility] Class I Tested Date 01/29/2024 [facility] Class I Result Positive [facility] Class I CPRA 96 [facility] Class I Increased Risk A11, A43; B27, Bw6; Cw8 [facility] Class I Moderate Risk A66, A25; B73, B46, B67, B7, B42, B81; Cw10, Cw7, Cw9, Cw12, Cw16, Cw1, Cw14 [facility] Class I Low Risk A26; B55, B76, B61, B48, B60, B82, B56, B39, B8 [facility] Class I Reportable Comments Bw6 pattern is present. [facility] Class II Treatment EDTA [facility] Class II Dilution 1:1 [facility] Class II Tested Date 01/29/2024 [facility] Class II Result Positive [facility] Class II CPRA 69 [facility] Class II Moderate Risk DR7, DR9, DR12, DR16, DR53; DPB1*01:01, DPB1*05:01, DPB1*13:01, DPB1*14:01 [facility] Class II Low Risk DR1, DR4, DR9, DR12, DR15, DR16, DR52, DR53; DQ5, DQ6; DPB1*03:01, DPB1*05:01, DPB1*06:01, DPB1*09:01, DPB1*11:01, DPB1*13:01, DPB1*19:01 [facility] Class II Reportable Comments Allelic antibody not listed: DRB3*01:01; DRB3*03:01; DRB1*15:02 (alloantibod y, moderate risk), patient is DRB3*02:02; DRB1*15:03 per [facility]. [facility] 01/26/2024 10:0 0 AM TRANSCRIPT CLERK 01/29/2024 1:28 PM TRANSCRIPT CLERK Narrative [facility] - 01/29/2024 1:28 PM TRANSCRIPT CLERK Single-antigen HLA antibody screen is performed on serum samples using a method developed and validated by the [facility] HLA laboratory based on an FDA-approved IVD kit (LABScreen Single-Antigen, [facility], [place], [place]). All patient serum samples are pretreated with EDTA before the screen to prevent complement interference. Additional serum treatments, such as adsorption and DTT treatment, may be performed as indicated. Interpretive comments: Low risk: MFI 7085-0395. Moderate risk: MFI 1449-9771. Increased risk: MFI >/= 5000. The presence of an antigen in two or more risk categories may indicate a mixed reactivity pattern among beads of multiple subtypes. Preformed donor-specific antibodies (DSA) with MFI above 2000 are predictive of positive cytotoxicity crossmatch (Hum Immunol 2010;71:268-73. Hum Immunol 2012;73:497- 604) and carry a higher risk of humoral rejection. For our solid-organ transplant programs, unacceptable antigens (UA) for transplant candidates are defined by MFI >/= 2000 with some exceptions. UA are listed at [facility] and used to generate calculated PRA (cPRA) rounded to the nearest integer. In the post-transplant setting, MFI values from donor-specific beads are listed in the DSA report to provide additional information. It is important to note that this test is approved as a qualitative test and the MFI values are not strictly linear. For platelet refractoriness: An empirical cutoff value of MFI >/= 2000 has been used in our center; a higher cutoff value such as 5000 may also be suitable for highly sensitized patients to prioritize the antigens to avoid. Testing performed at the [facility], [address] [place] [address], 5th floor, [place], [address]. [facility] # [id number]. Amber Berry, Ph.D., Leather Piece Inspector, HLA Laboratory Jonathan Brennan M.D., Ph.D., Tobacco Roller, HLA Laboratory Rehana Alarcon, Ph.D., CLIA Tobacco Roller, [facility] Current methodology and interpretive comments last revised on 03/20/2022. us Bashir Alston MD LAB BLOOD ORDERABLES Final R esult [facility] * POCT glucose (01/08/2024 9:44 AM TRANSCRIPT CLERK) Glucose, POC 97 70 - 199 mg/dL Blood 01/08/2024 9:44 AM TRANSCRIPT CLERK 01/08/2024 9:44 AM TRANSCRIPT CLERK us Brandan Orr MD LAB POCT ORDERABLES - DEV ICE Final Result Performing Organization Address [facility] de Phone Number [facility] [place] [address] * (ABNORMAL) Troponin I high-sensitivity 4-hour (01/08/2024 7:44 AM TRANSCRIPT CLERK) Trop I hs 131(H) <=17 ng/L Comment: Interpretive Data For further hscTnI resources including the diagnostic algorithm and an aid in interpretation, copy and paste this link: [email or web address].testcatalog.org/show/[email or web address] Current Interpretive Data last revised 2019. Trop I hs pct delta 8 % [facility] Trop I hs interp Equivocal [facility] Blood 01/08/2024 7:44 AM TRANSCRIPT CLERK 01/08/2024 7:53 AM TRANSCRIPT CLERK us Stacey [place] MD LAB BLOOD ORDERABLES Final Result Performing Organization Address [facility] Co de Phone Number [facility] [place] [address] * POCT glucose (01/08/2024 7:43 AM TRANSCRIPT CLERK) Glucose, POC 92 70 - 199 mg/dL Blood 01/08/2024 7:43 AM TRANSCRIPT CLERK 01/08/2024 7:43 AM TRANSCRIPT CLERK us Brandan Orr MD LAB POCT ORDERABLES - DEV ICE Final Result Performing Organization Address [facility] Co de Phone Number [facility] [place] [address] * POCT glucose (01/08/2024 5:48 AM TRANSCRIPT CLERK) Glucose, POC 109 70 - 199 mg/dL Blood 01/08/2024 5:48 AM TRANSCRIPT CLERK 01/08/2024 5:48 AM TRANSCRIPT CLERK us Amauri Greene MD PhD LAB POCT ORDERABLES - DEVICE Final Result [facility] [place] [address] * (ABNORMAL) Troponin I high-sensitivity 2-hour (01/08/2024 5:47 AM TRANSCRIPT CLERK) Trop I hs 140(H) <=17 ng/L Comment: reviewed Interpretive Data For further hscTnI resources including the diagnostic algorithm and an aid in interpretation, copy and paste this link: https://bjhlab.testcatalog.org/show/[email or web address] Current Interpretive Data last revised 2019. Trop I hs pct delta 16(C) % [facility] Comment:reviewed Trop I hs interp Significa nt(C) [facility] Comment:reviewed Blood 01/08/2024 5:47 AM TRANSCRIPT CLERK 01/08/2024 5:53 AM TRANSCRIPT CLERK us Stacey [place] MD LAB BLOOD ORDERABLES Final Result Performing Organization Address City/[facility]/ZIP Co de Phone Number [facility] [place] [address] * Critical result callback Cardio chemistry (01/08/2024 5:47 AM TRANSCRIPT CLERK) Date Notified [id number] Time Notified [facility] Test name Trop I hs 2hr p [facility] Called/Read Back Corin HOLT Credentials MD DENNIS HOLT Called By SHAWN HOLT Blood 01/08/2024 5:47 AM TRANSCRIPT CLERK 01/08/2024 5:53 AM TRANSCRIPT CLERK us Stacey [place] MD LAB BLOOD ORDERABLES Final Result [facility] One [facility] [place] [address] * (ABNORMAL) Troponin I high-sensitivity series (baseline, 2hr, 4hr, 6hr) (01/08/2024 3:39 AM TRANSCRIPT CLERK) Trop I hs 121(H) <=17 ng/L Comment: Interpretive Data For further hscTnI resources including the diagnostic algorithm and an aid in interpretation, copy and paste this link: [email or web address].testcatalog.org/show/[email or web address] Current Interpretive Data last revised 2019. Blood 01/08/2024 3:39 AM TRANSCRIPT CLERK 01/08/2024 3:46 AM TRANSCRIPT CLERK us Amauri Greene MD PhD LAB BLOOD ORDERABLE S Final Result [facility] One [facility] [place] [address] * (ABNORMAL) eGFR (01/08/2024 3:39 AM TRANSCRIPT CLERK) eGFR 3(L) >=60 mL/min/1. 73 m2 Comment: Interpretive Data Reference Interval Normal >/= 90 mL/min/1.73m2 Mildly decreased* 60 - 89 mL/min/1.73m2 Mildly to moderately decreased 45 - 59 mL/min/1.73m2 Moderately to severely decreased 30 - 44 mL/min/1.73m2 Severely decreased 15 - 29 mL/min/1.73m2 Kidney Failure < 15 mL/min/1.73m2 *Relative to young adult level Estimated glomerular filtration rate is determined by the 2020 CKD-EPI equation recommended by the National Kidney Foundation (A Unifying Approach to GFR Estimation: Recommendations of the NKF-ASK Task Force on Reassessing the Inclusion of Race in Diagnosing Kidney Disease, JASN 2020). The CKD-EPI equation should not be used for patients with unstable renal function and has not been validated in children and those over 70. Current interpretive data was last reviewed 2020. Blood 01/08/2024 3:39 AM TRANSCRIPT CLERK 01/08/2024 3:46 AM TRANSCRIPT CLERK us Stacey [place] MD LAB BLOOD ORDERABLES Final Result [facility] One [facility] [place] [address] * (ABNORMAL) Differential, auto (01/08/2024 3:39 AM TRANSCRIPT CLERK) Neutrophil abs 7.0(H) 1.5 - 6.5 K/cumm Imm gran abs 0.1 0.0 - 0.1 K/cumm [facility] Lymphocyte abs 2.2 0.8 - 3.3 K/cumm [facility] Monocyte abs 1.0(H) 0.2 - 0.8 K/cumm [facility] Eosinophil abs 0.2 0.0 - 0.5 K/cumm [facility] Basophil abs 0.1 0.0 - 0.1 K/cumm [facility] Neutrophil pct 66.7 % [facility] Comment: Interpretive Data Percent cell count reference ranges are not reported, since discordance with absolute values may lead to misinterpretation of CBC data. Current Interpretive Data was last revised on 2017. Imm gran pct 1.2 % [facility] Comment: Interpretive Data Percent cell count reference ranges are not reported, since discordance with absolute values may lead to misinterpretation of CBC data. Current Interpretive Data was last revised on 2017. Lymphocyte pct 20.4 % [facility] Comment: Interpretive Data Percent cell count reference ranges are not reported, since discordance with absolute values may lead to misinterpretation of CBC data. Current Interpretive Data was last revised on 2017. Monocyte pct 9.0 % [facility] Comment: Interpretive Data Percent cell count reference ranges are not reported, since discordance with absolute values may lead to misinterpretation of CBC data. Current Interpretive Data was last revised on 2017. Eosinophil pct 1.7 % [facility] Comment: Interpretive Data Percent cell count reference ranges are not reported, since discordance with absolute values may lead to misinterpretation of CBC data. Current Interpretive Data was last revised on 2017. Basophil pct 1.0 % [facility] Comment: Interpretive Data Percent cell count reference ranges are not reported, since discordance with absolute values may lead to misinterpretation of CBC data. Current Interpretive Data was last revised on 2017. Blood 01/08/2024 3:39 AM TRANSCRIPT CLERK 01/08/2024 4:20 AM TRANSCRIPT CLERK us Stacey [place] MD LAB BLOOD ORDERABLES Final Result Performing Organization Address City/[facility]/ZIP Co de Phone Number [facility] [place] [address] * (ABNORMAL) CBC with auto differential (01/08/2024 3:39 AM TRANSCRIPT CLERK) WBC 10.6(H) 3.8 - 9.9 K/cumm Hgb 9.3(L) 11.9 - 15.5 g/dL [facility] Hct 29.7(L) 35.6 - 45.5 % [facility] Plt 205 150 - 400 K/cumm [facility] MPV 10.6 9.1 - 12.3 fL [facility] RBC 3.44(L) 3.90 - 5.20 M/cumm [facility] MCV 86.3 81.3 - 96.4 fL [facility] MCH 27.0(L) 27.1 - 33.3 pg [facility] MCHC 31.3(L) 32.3 - 35.7 g/dL [facility] RDW CV 14.5 11.1 - 14.9 % [facility] RDW SD 45.1 35.7 - 48.1 fL [facility] NRBC abs 0.00 0.00 - 0.01 K/cumm [facility] Blood 01/08/2024 3:39 AM TRANSCRIPT CLERK 01/08/2024 4:20 AM TRANSCRIPT CLERK us Amauri Greene MD PhD LAB BLOOD ORDERABLE S Final Result Performing Organization Address City/[facility]/ZIP Co de Phone Number [facility] [place] [address] * (ABNORMAL) Comprehensive metabolic panel (01/08/2024 3:39 AM TRANSCRIPT CLERK) Sodium 139 135 - 145 mmol/L Potassium, pl 4.8 3.3 - 4.9 mmol/L [facility] Chloride 101 97 - 110 mmol/L [facility] CO2 23 22 - 32 mmol/L [facility] Anion gap 15 2 - 15 mmol/L [facility] BUN 67(H) 6 - 25 mg/dL [facility] Creatinine 13.73(H) 0.60 - 1.10 mg/dL [facility] Glucose 138 70 - 199 mg/dL [facility] Comment: Interpretive Data Fasting glucose >/= 126 mg/dl is diagnostic for diabetes. Fasting is defined as no caloric intake for at least 8 hours. Fasting glucose between 100 mg/dl to 125 mg/dl is diagnostic of prediabetes. In a patient with classic symptoms of hyperglycemia or hyperglycemic crisis, a random glucose >/= 200 mg/dl is diagnostic for diabetes. In the absence of unequivocal hyperglycemia, results should be confirmed by repeat testing. The classification and Diagnosis of Diabetes Diabetes Care 202; 46: S19-S40. Current interpretive data was last revised 2022. Calcium 9.7 8.5 - 10.3 mg/dL [facility] Bilirubin, total 0.2 0.1 - 1.2 mg/dL [facility] Protein, pl 7.5 6.5 - 8.5 g/dL [facility] Albumin 3.2(L) 3.5 - 5.0 g/dL [facility] Alk phos 179(H) 40 - 130 Units/L [facility] ALT 40 7 - 45 Units/L [facility] AST 45 10 - 45 Units/L [facility] Blood 01/08/2024 3:39 AM TRANSCRIPT CLERK 01/08/2024 3:46 AM TRANSCRIPT CLERK us Amauri Greene MD PhD LAB BLOOD ORDERABLE S Final Result [facility] One [facility] [place] [address] * XR Chest PA Lateral 2 Views (01/07/2024 10:56 PM TRANSCRIPT CLERK) Anatomical Region Laterality Modality Body, Chest N/A Computed Radiogr aphy 01/08/2024 12:1 0 AM TRANSCRIPT CLERK Impressions 01/08/2024 8:52 AM TRANSCRIPT CLERK The current study is compared with the prior radiograph dated 12/01/2023. Mild patchy airspace opacities noted in the left upper lobe and right lung base which may represent atelectasis versus multifocal consolidation. No pleural effusion. No pneumothorax. Heart size is mildly enlarged, likely related to the portable nature of the film. Dictated by: Rachna Hester MD, MPH The radiology attending physician has personally reviewed this study, and had reviewed and/or edited this written report and agrees with it. Electronically signed by: Nick Miles M.D. Narrative 01/08/2024 8:52 AM TRANSCRIPT CLERK EXAMINATION: 2 view chest radiograph Procedure Note Nick Miles MD - 01/08/2024 EXAMINATION: 2 view chest radiograph IMPRESSION: The current study is compared with the prior radiograph dated 12/01/2023. Mild patchy airspace opacities noted in the left upper lobe and right lung base which may represent atelectasis versus multifocal consolidation. No pleural effusion. No pneumothorax. Heart size is mildly enlarged, likely related to the portable nature of the film. Dictated by: Rachna Hester MD, MPH The radiology attending physician has personally reviewed this study, and had reviewed and/or edited this written report and agrees with it. Electronically signed by: Nick Miles M.D. us Amauri Greene MD PhD IMG XR PROCEDURES F inal Result * ECG 12-LEAD (01/07/2024 10:21 PM TRANSCRIPT CLERK) Narrative [facility] - 01/07/2024 10:21 PM TRANSCRIPT CLERK Stacey Thomas MD 01/07/2024 10:23 PM ECG 12 lead Date/Time: 01/07/2024 10:21 PM Performed by: Stacey Thomas MD Authorized by: Stacey Thomas MD Rate: ECG rate: 90 ECG rate assessment: normal Rhythm: Rhythm: sinus rhythm Ectopy: Ectopy: none QRS: QRS intervals: Normal Conduction: Conduction: normal ST segments: ST segments: Normal T waves: T waves: flattening Flattening: AVL Q waves: Q waves: V1, V2 and V3 Other findings: Other findings: poor R wave progression Previous ECG: Previous ECG: Compared to current Date of previous EC03/06/2023 Interpretation: Interpretation: No significant change Procedure Note Stacey Thomas MD - 01/07/2024 10:21 PM CST Procedure ECG 12 lead Date/Time: 01/07/2024 10:21 PM Performed by: Stacey Thomas MD Authorized by: Stacey Thomas MD Rate: ECG rate: 90 ECG rate assessment: normal Rhythm: Rhythm: sinus rhythm Ectopy: Ectopy: none QRS: QRS intervals: Normal Conduction: Conduction: normal ST segments: ST segments: Normal T waves: T waves: flattening Flattening: AVL Q waves: Q waves: V1, V2 and V3 Other findings: Other findings: poor R wave progression Previous ECG: Previous ECG: Compared to current Date of previous EC03/06/2023 Interpretation: Interpretation: No significant change Stacey Thomas MD 01/07/243 us Amauri Greene MD PhD ECG ORDERABLES Fin al Result [facility] * (ABNORMAL) POCT glucose (01/07/2024 10:21 PM TRANSCRIPT CLERK) Glucose, POC 200(H) 70 - 199 mg/dL Blood 01/07/2024 10:2 1 PM TRANSCRIPT CLERK 01/07/2024 10:21 PM TRANSCRIPT CLERK us Notinfile Unknown LAB POCT ORDERABLES - DEVICE F inal Result [facility] [place] [address] * Colonoscopy (07/21/2023 10:23 AM CDT) Anatomical Region Laterality Modality Other Narrative Procedure Note Haritha Stover MD - 07/21/2023 10:23 AM CDT [facility] Patient Name: Bakari Smith Procedure Date: 07/21/2023 10:23 AM Date of : 1980 Admit Type: Outpatient Age: 43 Gender: Female Attending MD: Haritha Stover M.D. Room: [facility] ENDOSCOPY ROOM 02 Note Status: Finalized Procedure: Colonoscopy Indications: Screening for colorectal malignant neoplasm, Thisis the patient's first colonoscopy Referring MD: Bashir Alston M.D. Providers: Haritha Stover M.D. Medicines: Monitored Anesthesia Care Complications: No immediate complications. Estimated Blood Loss: Estimated blood loss: none. Procedure: Pre-Anesthesia Assessment: - Immediately prior to administration ofmedications, the patient was re-assessed for adequacy to receive sedatives. The benefits, risks and alternatives of theprocedure and sedation were discussed and informed consentwas obtained. All questions were answered. Please referto the signed informed consent document in the medical record. The scope was passed under direct vision.The [id number] Colonoscope was introducedthrough the anus and advanced to the the cecum, identifiedby appendiceal orifice and ileocecal valve. The colonoscopy was performed without difficulty. The patient tolerated the procedure well. The qualityof the bowel preparation was evaluated using the BBPS ([place] Bowel Preparation Scale) with scores of:Right Colon = 2 (minor amount of residual staining, small fragments of stool and/or opaque liquid, but mucosa seen well), Transverse Colon = 2 (minor amount of residual staining, small fragments of stool and/or opaque liquid, but mucosa seen well) and Left Colon= 2 (minor amount of residual staining, smallfragments of stool and/or opaque liquid, but mucosa seenwell). The total BBPS score equals 6. The quality of the bowel preparation was good. The bowel preparationused was polyethylene glycol (PEG) via split dose instruction. Findings: Two sessile polyps were found in the ascending colon. The polyps were3 mm in size. These polyps were removed with a jumbo cold forceps. Resection and retrieval were complete. Small non-bleeding internal hemorrhoids were found on retroflexion. Impression: - Two 3 mm polyps in the ascending colon, removedwith a jumbo cold forceps. Resected and retrieved. - Small non-bleeding internal hemorrhoids werefound on retroflexion. Recommendation: - Repeat colonoscopy in 7-10 years for surveillance based on pathology results. Attending Participation: I personally performed the entire procedure. Electronically signed by Haritha Stover MD Haritha Stover M.D. 07/21/2023 10:59:54 AM . Number of Addenda: 0 Note Initiated On: 07/21/2023 10:23 AM Recognized by the [place] [employer] for promoting quality in endoscopy us Haritha Stover MD ENDOSCOPY PROCEDURES Final Res ult * HM MAMMOGRAPHY (06/04/2021) Impressions Rashida Schneider - 06/04/2021 IMPRESSION: 1. Benign mammogram. READ BY: NINO BAJWA MD 06/05/2021 us Historical Provider HEALTH MAINTENANCE Final Result * Lipid panel (04/30/2021 12:22 PM TRANSCRIPT CLERK) Cholesterol 139 30 - 199 mg/dL [facility] Comment: Interpretive Data Ages < or = 19 years Acceptable: <170 mg/dL Borderline high: 170-199 mg/dL High: >or= 200 mg/dL Ages > or = 20 years Desirable: <200 mg/dL Borderline high: 200-239 mg/dL High: >or= 240 mg/dL Literature References: 1. Expert Panel on Integrated Guidelines for Cardiovascular Health and Risk Reduction in Children and Adolescents. Pediatrics 2011;128:S213 2. NCEP Expert Panel. Circulation 2004;110:227 Current Interpretive Data was last revised on 2017. Triglycerides 64 <=149 mg/dL [facility] Comment: Interpretive Data Ages < or = 9 years Acceptable: <75 mg/dL Borderline high: 75-99 mg/dL High: >or= 100 mg/dL Ages 10 to 20 years Acceptable: <90 mg/dL Borderline high: 90-129 mg/dL High: >or= 130 mg/dL Ages > or = 20 years Desirable: <150 mg/dL Borderline high: 150-199 mg/dL High: 200-499 mg/dL Very high: >or= 499 mg/dL Literature References: 1. Expert Panel on Integrated Guidelines for Cardiovascular Health and Risk Reduction in Children and Adolescents. Pediatrics 2011;128:S213 2. NCEP Expert Panel. Circulation 2004;110:227 Current Interpretive Data was last revised on 2017. HDL 70 >=40 mg/dL [facility] Comment: Interpretive Data Ages < or = 19 years Acceptable: >45 mg/dL Borderline low: 40-45 mg/dL Low: <40 mg/dL Ages > or = 20 years Desirable: >or= 60 mg/dL Low: <40 mg/dL Literature References: 1. Expert Panel on Integrated Guidelines for Cardiovascular Health and Risk Reduction in Children and Adolescents. Pediatrics 2011;128:S213 2. NCEP Expert Panel. Circulation 2004;110:227 Current Interpretive Data was last revised on 2017. LDL, calculated 56 <=129 mg/dL [facility] Comment: Interpretive Data Ages < or = 19 years Acceptable: <110 mg/dL Borderline high: 110-129 mg/dL High: >or= 130 mg/dL Ages > or = 20 years Optimal: <100 mg/dL Near optimal: 100-129 mg/dL Borderline high: 130-159 mg/dL High: >160 mg/dL Literature References: 1. Expert Panel on Integrated Guidelines for Cardiovascular Health and Risk Reduction in Children and Adolescents. Pediatrics 2011;128:S213 2. NCEP Expert Panel. Circulation 2004;110:227 Current Interpretive Data was last revised on 2017. Non-HDL Cholesterol 69 mg/dL [facility] Comment: Interpretive Data Ages < or = 19 years Acceptable: <120 mg/dL Borderline high: 120-144 mg/dL High: >145 mg/dL Ages > or = 20 years When triglycerides are >200 mg/dL, Non-HDL cholesterol is a secondary target of therapy with treatment goals that are 30 mg/dL greater than the LDL cholesterol target. Literature References: 1. Expert Panel on Integrated Guidelines for Cardiovascular Health and Risk Reduction in Children and Adolescents. Pediatrics 2011;128:S213 2. NCEP Expert Panel. Circulation 2004;110:227 Current Interpretive Data was last revised on 2017. Chol/HDL ratio 2 [facility] Blood 04/30/2021 12:2 2 PM TRANSCRIPT CLERK 04/30/2021 1:03 PM TRANSCRIPT CLERK us Ren Pelayo MD LAB BLOOD ORDERABLES Final Result [facility] [place] [address] from Last 3 Months or Most Recently Relevant to Health Maintenance Insurance [facility] MEDICARE MEDICARE MEDICARE MEDICARE Advance Directives For more information, please contact: [phone] * Full Code (Latest Code Status on File) Date Activated Date Inactivated Comments 07/21/2023 9:59 AM 07/21/2023 3:56 PM Care Teams Magnetic Tester Relationship Specialty Start Date End Date No, Physician PCP - General 02/16/24 Almita Rizzo, RN [address] [facility] [address] [place] [address] Table Runner 04/04/21 Beth Fernandez MD [address] [facility] [address] [place] [address] Referring Physician Nephrology 04/04/21 Maday Oviedo MD [address] [facility] [address] [place] [address] Neurology 09/12/22 Tomasz Scott DO [address] [place] [address] Sap Pi Developer Cardiology 09/16/22
--- OUTSIDE RECORDS SUMMARY | 2024-04-01 01:07 | XMS_ITS | Encounter Summary ---
Author Organization [facility] Healthcare Address [address] [place] [address] Care Team Providers Care Process Safety Engineer Name Role Phone Jessie Dickson NP Primary Care Provider [phone] Almita Rizzo RN Unavailable [phone] Beth Fernandez MD Unavailable [phone] Maday Oviedo MD Unavailable [phone] Tomasz Scott DO Unavailable [phone] Bashir Alston MD Primary Care Provider [phone] No, Physician Primary Care Provider [phone] Reason for Visit * Reason Onset Date Comments READY TO SCHEDULE 04/28/2023 Encounter Details Date Type Department Care Team (Late st Contact Info) Description 04/28/2023 Telephone [facility] Specialty Services [address] [place] [address] Miscellaneous, Not In File READY TO SCHEDULE Social History Tobacco Use Types Packs/Day Years Used Date Smoking Tobacco: Never Passive Smoke Exposure: Past Smokeless Tobacco: Never AUDIT-C Answer Date Recorded Q1: How often do you have a drink containing alcohol? Never 05/23/2022 Q2: How many drinks containi ng alcohol do you have on a typical day when you are drinking? Patient does not drink Q3: How often do you have si x or more drinks on one occasion? Never 05/23/2022 Personal Safety Answer Date Recorded Have you ever been in or are you currently in a harmful physical or emotional relationship or is someone making you feel afraid or unsafe? Denies 05/23/2022 Comments No Sex and Gender Information Value Date Recorded Sex Assigned at Not on file Legal Sex Female 11:50 PM BLOCK AND CASE MAKER Gender Identity Not on file Sexual Orientation Not on file documented as of this encounter Plan of Treatment Not on file documented as of this encounter Visit Diagnoses Not on filedocumented in this encounter Additional Health Concerns Infection Onset Date Last Indicated Resolved Time COVID: Suspected 12/01/2023 12/01/2023 12/01/2023 7:33 PM CDT documented as of this encounter Care Teams Process Safety Engineer Relationship Specialty Start Date End Date Jessie Dickson NP [address] [place] [address] PCP - General Nurse Practitioner 03/05/21 07/07/23 Bashir Alston MD [address] [facility] [address] [place] [address] PCP - General Transplant 07/08/23 07/08/23 No, Physician PCP - General 02/16/24 Almita Rizzo, RN [address] [facility] [address] [place] [address] Toppiece Cutter 04/04/21 Beth Fernandez MD [address] [place] [address] Referring Physician Nephrology 04/04/21 Maday Oviedo MD [address] [place] [address] Neurology 09/12/22 Tomasz Scott DO [address] [place] [address] Sheet Metal Production Worker Cardiology 09/16/22 documented as of this encounter
--- OUTSIDE RECORDS SUMMARY | 2024-04-01 01:07 | XMS_ITS | CONTINUITY OF CARE DOCUMENT ---
Author Name juany harrington Address Unknown Organization [facility] Address [id number] [place] [address] [address] [place] [address] Phone [phone] Care Team Providers Care Tree Driller Name Role Phone Christoph Guerra MD Unavailable [phone] ANNITA WALTER MD Unavailable [phone] ANNITA WALTER MD Unavailable [phone] PROBLEMS Condition Status Date Provider Notes Cardiology examination active Christoph ramirez MD ESRD on PD active Christoph Guerra MD HTN essential active Christoph Guerra MD Diabetes mellitus, type 2 active Christoph greer MD Diabetic autonomic neuropathy active Christoph Guerra MD Restless leg syndrome active Christoph Guerra MD Shortness of breath active Christoph Gonzalez Hyperlipidemia active Christoph Guerra MD ENCOUNTERS Date Type Provider Location Encounter Diag nosis - In-person encounter Office Visit Christoph Guerra MD [facility] Cardiology examinationESRD on PDHTN essentialDiabetes mellitus, type 2Diabetic autonomic neuropathyRestless leg syndromeShortness of breathHyperlipidemia VITAL SIGNS Date Observation Value Provider Body Mass Index (Ratio) 34.54 kg/m2 Enedina Guerra MD blood pressure, cuff size regular Ke rri Navin blood pressure, diastolic 96 mm[Hg] Ke rri Navin blood pressure, systolic 186 mm[Hg] Ker ri Navin oxygen saturation, oximetry 99 % Radha Navin respiratory rate E&M 12 /min Radha G serafin pulse rate 81 /min Radha Colten lder weight E&M 195 [lb_av] Radha Colten lder height E&M 63 [in_i] Radha Colten lder ALLERGIES Allergy Name Onset Date Reaction Criticality Status OMEPRAZOLE Low Criticality active FLAGYL Low Criticality active HISTORY OF MEDICATION USE Medication Status Instructions Dates Provider Indications Com ments amlodipine 5 mg tablet active Take 1 tablet by mouth once a day 4 Christoph Guerra MD atorvastatin 80 mg tablet active Take 1 tablet by mouth once a day Christoph Guerra MD sevelamer carbonate 800 mg tablet active Radha Holden Lantus Solostar U-100 Insulin 100 unit/mL (3 mL) insulin pen active Radha Holden calcium acetate(phosphat bind) 667 mg capsule active Radha Holden megestrol 40 mg tablet active Radha Holden aspirin 81 mg tablet,delayed release (DR/EC) active TAKE 1 TABLET BY MOUTH EVERY DAY Radha Holden gabapentin 100 mg capsule active Radha Holden ropinirole 0.5 mg tablet active Radha Holden hydralazine 100 mg tablet active Take 1 tablet by mouth twice daily Christoph Guerra MD labetalol 200 mg tablet active 1 tablet by mouth twice a day Christoph Guerra MD SOCIAL HISTORY Date Observation Value Provider number of grandchildren Christoph Guerra MD smoking status Never smoker Christoph ramirez MD INSURANCE PROVIDERS Payer name Policy type / Coverage type [place] [employer] party ID [place] MED[place] Medicare [id number] ADVANCE DIRECTIVES Name Date DISCUSSED - NO DECISION MADE TREATMENT PLAN Date Name Performer Cardiology Christoph Gonzalez Cardiology Christoph Gonzalez Cardiology: B P today: 186/96 Her updated medication list for this problem includes: Amlodipine 5 Mg Tablet (Amlodipine) ..... Take 1 tablet by mouth once a day Labetalol 200 Mg Tablet (Labetalol) ..... 1 tablet by mouth twice a day Hydralazine 100 Mg Tablet (Hydralazine) ..... Take 1 tablet by mouth twice daily Aspirin 81 Mg Tablet,delayed Release (dr/ec) (Aspirin) ..... Take 1 tablet by mouth every day Christoph Guerra MD Cardiology:This visi t has been a part of the consistent, comprehensive, and ongoing management of the chronic medical condition(s) listed above for the patient. H er updated medication list for this problem includes: Lantus Solostar U-100 Insulin 100 Unit/ml (3 Ml) Insulin Pen (Insulin glargine) Aspirin 81 Mg Tablet,delayed Release (dr/ec) (Aspirin) ..... Take 1 tablet by mouth every day Christoph Guerra MD Cardiology:This visi t has been a part of the consistent, comprehensive, and ongoing management of the chronic medical condition(s) listed above for the patient. H er updated medication list for this problem includes: Atorvastatin 80 Mg Tablet (Atorvastatin) ..... Take 1 tablet by mouth once a day Christoph Guerra MD Cardiology Christoph Gonzalez Date Name TSH, 3RD GENERATION W/REFLEX TO FT4 CardioIQ Advanced Li pid Panel with Inflammation (Quest) myocardial blood jason w (PET) Stress Cardiac PET-C T Complete Echo HISTORY OF PROCEDURES Procedure Date Procedure Name Provider Procedure Notes S tatus EKG Christoph Guerra MD [ 4 - tracyvandoren] completed
--- OUTSIDE RECORDS SUMMARY | 2024-04-01 01:08 | XMS_ITS ---
Author Organization [facility] Address [address] [place] [address] Care Team Providers Care Software Sales Consultant Name Role Phone Almita Rizzo RN Unavailable [phone] Beth Fernandez MD Unavailable [phone] Maday Oviedo MD Unavailable [phone] Tomasz Scott DO Unavailable [phone] No, Physician Primary Care Provider [phone] Transplant Episode Kidney Candidate [facility] ([place], [place]) [facility] Center waitlisted on 09/10/2021 Marked as Active on 04/02/2023 Reason: Listed in [facility] Kidney CoordinatorAlmtia Rizzo RN Fax: N/A Email: N/A Scores Score Value Updated Exceptions/Reas ons CPRA Not available EPTS (Calc) 52 04/01/2024 [place] 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 Mellitus - Type II Care Team Name Role Phone Fax Email Almita Rizzo RN Kidney Coordinator [phone] N/A N/A Beth Fernandez MD Referring Physician [phone] N/A Hien Mireles Refractory Bricklayer [phone] N/A N/A Events Pre-Transplant Referred: 02/07/2021 Evaluation began: 04/04/2021 Committee: 09/09/2021 [facility] qualified: 01/21/2021 Center waitlisted: 09/10/2021 Dialysis History Dialysis History Start End Type Comments Center 04/23/2021 Peritoneal [facility] 01/21/2021 04/23/2021 Hemo M/W/F [facility] Information Center Phone Fax Address [facility] [phone] [address] [facility] [phone] [address] [place] [id number]
--- OUTSIDE RECORDS SUMMARY | 2024-04-01 01:08 | XMS_ITS | Referral Summary ---
Author Organization [facility] Address [address] [place] [address] Care Team Providers Care Procedure Manager Name Role Phone Almita Rizzo RN Unavailable [phone] Beth Fernandez MD Unavailable [phone] Maday Oviedo MD Unavailable [phone] Tomasz Scott DO Unavailable [phone] No, Physician Primary Care Provider [phone] Encounters Date Type Department Care Team Description 03/22/2024 Documentation [facility] Transplant Kidney [address] [facility] [address] Mail[address] [id number] [place] [address] Almita Rizzo RN Waitlist Maintenance 02/29/2024 Telephone [facility] Transplant Kidney [address] [facility] [address] Mailstop [phone] [place] [address] Almita Rizzo RN Waitlist Maintenance 02/26/2024 10:00 AM SWISS TYPE SCREW MACHINE OPERATOR - 02/26/2024 11:59 PM SWISS TYPE SCREW MACHINE OPERATOR Hospital Encounter [address] [address] Pre-transplant evaluation for kidney transplant; ESRD (end stage renal disease) (CMS/HCC) (HCC) Discharge Disposition: Discharge to home or self care 02/26/2024 7:21 AM SWISS TYPE SCREW MACHINE OPERATOR - 02/26/2024 11:59 PM SWISS TYPE SCREW MACHINE OPERATOR Hospital Encounter [facility] Cardiac Diagnostic Lab [address] [place] [address] Pre-kidney transplant, patient on transplant list; ESRD (end stage renal disease) ([facility]) ([facility]) Discharge Disposition: Discharge to home or self care 02/18/2024 Documentation [facility] Transplant Kidney [address] [facility] [address] Mailstop [id number] [place] [address] Anjali Gastelum Appointment/Schedul es 02/18/2024 Documentation [facility] Transplant Kidney [address] [facility] [address] Mailstop [phone] [place] [address] Almita Rizzo, DELFINO Waitlist Maintenance 02/16/2024 11:25 AM SWISS TYPE SCREW MACHINE OPERATOR Lab [facility] ([facility]) [address] [place] [phone] Pre-kidney transplant, patient on transplant list; ESRD (end stage renal disease) ([facility]) ([facility]) 01/26/2024 10:00 AM SWISS TYPE SCREW MACHINE OPERATOR - 01/26/2024 11:59 PM [facility] Hospital Encounter [facility] of [address] [address] Pre-transplant evaluation for kidney transplant; ESRD (end stage renal disease) ([facility]) ([facility]) Discharge Disposition: Discharge to home or self care 01/25/2024 Telephone [facility] Transplant Kidney [address] [facility] [address] Mailstop [phone] [place] [address] Kathryn Still 01/08/2024 2:57 AM SWISS TYPE SCREW MACHINE OPERATOR - 01/08/2024 9:59 AM SWISS TYPE SCREW MACHINE OPERATOR Emergency [facility] Emergency Department [address] [place] [phone] Amauri Greene MD PhD Kirby, Brandan Martinez MD Shortness of breath (Primary Dx); Pneumonia due to infectious organism, unspecified laterality, unspecified part of lung Discharge Disposition: Discharge to home or self care from Last 3 Months Allergies Active Allergy Reactions Criticality Noted Date [...] (04/10/2022): Added automatically from request for surgery [id number] Hypertension 2021 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 ([facility]) 03/05/2021 Diabetic retinopathy associa graeme with type 2 diabetes mellitus 06/12/2015 Hyperlipidemia 06/29/2014 Type 2 diabetes mellitus 09/17/2012 Resolved Problems Problem Noted Date Diagnosed Date Resolved Date 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 04/09/2022 Acute retrobulbar neuritis 05/24/2018 0 04/09/2022 Blurring of visual image 05/24/2018 Vitamin D deficiency disease 09/17/2012 04/09/2022 Diabetes mellitus 06/21/2010 04/09/2022 Immunizations Name Administration Dates Next Due Hep B Vaccine 2023,10/06/2022,04/18/2021 Influenza, Quadrivalent, Spl it, Intramuscular 02/03/2023,12/27/2021 Pneumococcal Conjugate 7-Valent 03/03/2018 Pneumococcal Conjugate PCV 13 04/18/2021 Pneumococcal Conjugate Pcv20 2023 Pneumococcal Polysaccharide PPV23 07/09/2017 Tdap 07/09/2017 Social History Tobacco Use Types Packs/Day Years [...] on file Legal Sex Female 11:50 PM SWISS TYPE SCREW MACHINE OPERATOR Gender Identity Not on file Sexual Orientation Not on file Last Filed Vital Signs Vital Sign Reading Time Taken Comments Blood Pressure 165/85 02/26/2024 10:12 AM SWISS TYPE SCREW MACHINE OPERATOR Pulse 100 02/26/2024 10:12 AM SWISS TYPE SCREW MACHINE OPERATOR Temperature 36.7 C (98.1 F) 01/08/2024 9:45 AM SWISS TYPE SCREW MACHINE OPERATOR Respiratory Rate 16 01/08/2024 8:30 AM SWISS TYPE SCREW MACHINE OPERATOR Oxygen Saturation 97% 01/08/2024 9:30 AM SWISS TYPE SCREW MACHINE OPERATOR Inhaled Oxygen Concentration - - Weight 90.7 kg (200 lb) 02/26/2024 8:40 AM SWISS TYPE SCREW MACHINE OPERATOR Height 160 cm (5' 3 ) 02/26/2024 8:40 AM SWISS TYPE SCREW MACHINE OPERATOR Body Mass Index 35.43 02/26/2024 8:40 AM SWISS TYPE SCREW MACHINE OPERATOR Plan of Treatment Not on file Medical Devices Implanted Type Area Charge Attendant Device Identifier Shelf Expiration Date Model / Serial / Lot [employer] [id number] [place] 15fr 62cm 2 Cuff Radiopaque Peritoneal Curl Catheter - Sn/A - [id number] Implanted:Qty : 1 on 03/14/2021 by Gildardo Leggett MD at [facility] Catheter N/A: Abdomen [employer] 07/01/2025 [id number] / N/A / [id number] Description:Peritoneal Dialy sis Catheter, Curl Cath, 2 Cuffs Graft Vasc 45cm 4-6mm Gray Acuseal Eptfe 3 Layer Kink Rst - [id number] - [id number] Implanted:Qty : 1 on 05/08/2022 by Uche Katz MD at [facility] Graft Left: Arm [employer] [id number] 05/21/2024 [id number] / [id number] / 00 Procedures Procedure Name Priority Date/Time Associated Diagnosis Comments STRESS ECHO PHARMACOLOGIC W DOPPLER/CF W CONTRAST Routine 02/26/2024 10:12 AM SWISS TYPE SCREW MACHINE OPERATOR Pre-kidney transplant, patient on transplant list ESRD (end stage renal disease) ([facility]) ([facility]) HLA ANTIBODY SCREEN BY PRA OR SAB PER SCHEDULE (CLASS I AND CLASS II) Routine 02/26/2024 10:00 AM SWISS TYPE SCREW MACHINE OPERATOR Pre-transplant evaluation for kidney transplant ESRD (end stage renal disease) ([facility]) ([facility]) EGFR Routine 02/16/2024 11:34 AM SWISS TYPE SCREW MACHINE OPERATOR Pre-kidney transplant, patient on transplant list ESRD (end stage renal disease) ([facility]) ([facility]) DIFFERENTIAL AUTO Routine 02/16/2024 11: 34 AM SWISS TYPE SCREW MACHINE OPERATOR Pre-kidney transplant, patient on transplant list ESRD (end stage renal disease) ([facility]) ([facility]) CBC WITH AUTO DIFFERENTIAL Routine 02/16/2024 11:34 AM SWISS TYPE SCREW MACHINE OPERATOR Pre-kidney transplant, patient on transplant list ESRD (end stage renal disease) (CMS/HCC) (HCC) COMPREHENSIVE METABOLIC PANEL Routine 02/16/2024 11:34 AM SWISS TYPE SCREW MACHINE OPERATOR Pre-kidney transplant, patient on transplant list ESRD (end stage renal disease) (CMS/HCC) (HCC) PHOSPHORUS Routine 02/16/2024 11:34 AM SWISS TYPE SCREW MACHINE OPERATOR Pre-kidney transplant, patient on transplant list ESRD (end stage renal disease) (CMS/HCC) (HCC) PTH Routine 02/16/2024 11:34 AM SWISS TYPE SCREW MACHINE OPERATOR Pre-kidney transplant, patient on transplant list ESRD (end stage renal disease) (CMS/HCC) (HCC) HEMOGLOBIN A1C Routine 02/16/2024 11:34 AM SWISS TYPE SCREW MACHINE OPERATOR Pre-kidney transplant, patient on transplant list ESRD (end stage renal disease) (CMS/HCC) (HCC) HIV 1/2 ANTIBODY PLUS P24 ANTIGEN Routine 02/16/2024 11:34 AM SWISS TYPE SCREW MACHINE OPERATOR Pre-kidney transplant, patient on transplant list ESRD (end stage renal disease) (CMS/HCC) (HCC) HEPATITIS B SURFACE ANTIBODY (IMMUNE STATUS) Routine 02/16/2024 11:34 AM SWISS TYPE SCREW MACHINE OPERATOR Pre-kidney transplant, patient on transplant list ESRD (end stage renal disease) (CMS/HCC) (HCC) HEPATITIS B SURFACE ANTIGEN Routine 02/16/2024 11:34 AM SWISS TYPE SCREW MACHINE OPERATOR Pre-kidney transplant, patient on transplant list ESRD (end stage renal disease) (CMS/HCC) (HCC) HEPATITIS C ANTIBODY Routine 02/16/2024 11:34 AM SWISS TYPE SCREW MACHINE OPERATOR Pre-kidney transplant, patient on transplant list ESRD (end stage renal disease) (CMS/HCC) (HCC) HEPATITIS B CORE ANTIBODY, TOTAL Routine 02/16/2024 11:34 AM SWISS TYPE SCREW MACHINE OPERATOR Pre-kidney transplant, patient on transplant list ESRD (end stage renal disease) (CMS/HCC) (HCC) HLA ANTIBODY SCREEN - SAB (CLASS I AND CLASS II) Routine 01/26/2024 10:00 AM SWISS TYPE SCREW MACHINE OPERATOR Pre-transplant evaluation for kidney transplant ESRD (end stage renal disease) ([facility]) ([facility]) HLA ANTIBODY SCREEN BY PRA OR SAB PER SCHEDULE (CLASS I AND CLASS II) Routine 01/26/2024 10:00 AM SWISS TYPE SCREW MACHINE OPERATOR Pre-transplant evaluation for kidney transplant ESRD (end stage renal disease) ([facility]) ([facility]) POCT GLUCOSE DEVICE Routine 01/08/2024 9 :44 AM SWISS TYPE SCREW MACHINE OPERATOR TROPONIN I HIGH-SENSITIVITY 4-HOUR Timed 01/08/2024 7:44 AM SWISS TYPE SCREW MACHINE OPERATOR POCT GLUCOSE DEVICE Routine 01/08/2024 7 :43 AM SWISS TYPE SCREW MACHINE OPERATOR POCT GLUCOSE DEVICE Routine 01/08/2024 5 :48 AM SWISS TYPE SCREW MACHINE OPERATOR CRITICAL RESULT CALLBACK CARDIO CHEM Timed 01/08/2024 5:47 AM SWISS TYPE SCREW MACHINE OPERATOR TROPONIN I HIGH-SENSITIVITY 2-HOUR Timed 01/08/2024 5:47 AM SWISS TYPE SCREW MACHINE OPERATOR MDI INSTRUCT STAT 01/08/2024 4:48 AM SWISS TYPE SCREW MACHINE OPERATOR EGFR STAT 01/08/2024 3:39 AM SWISS TYPE SCREW MACHINE OPERATOR DIFFERENTIAL AUTO STAT 01/08/2024 3:3 9 AM SWISS TYPE SCREW MACHINE OPERATOR TROPONIN I HIGH-SENSITIVITY SERIES (BASELINE, 2HR, 4HR, 6HR) STAT 01/08/2024 3:39 AM SWISS TYPE SCREW MACHINE OPERATOR CBC WITH AUTO DIFFERENTIAL STAT 01/08/2024 3:39 AM SWISS TYPE SCREW MACHINE OPERATOR COMPREHENSIVE METABOLIC PANEL STAT 01/08/2024 3:39 AM SWISS TYPE SCREW MACHINE OPERATOR XR CHEST PA LATERAL 2 VIEWS ED 01/07/2024 10:56 PM SWISS TYPE SCREW MACHINE OPERATOR ECG 12-LEAD STAT 01/07/2024 10:21 PM SWISS TYPE SCREW MACHINE OPERATOR POCT GLUCOSE DEVICE Routine 01/07/2024 1 0:21 PM SWISS TYPE SCREW MACHINE OPERATOR COLONOSCOPY 07/21/2023 10:23 AM CDT HM MAMMOGRAPHY Routine 06/04/2021 LIPID PANEL Routine 04/30/2021 12:22 PM SWISS TYPE SCREW MACHINE OPERATOR Pre-transplant evaluation for kidney transplant End stage renal disease (CMS/HCC) (HCC) from Last 3 Months or Most Recently Relevant to Health Maintenance Results * STRESS ECHO PHARMACOLOGIC W DOPPLER/CF W CONTRAST (02/26/2024 10:12 AM SWISS TYPE SCREW MACHINE OPERATOR) LV EF 58 % CARDIOREPORT Anatomical Region Laterality Modality Ultrasound 02/26/2024 8:00 AM SWISS TYPE SCREW MACHINE OPERATOR Narrative 02/26/2024 11:07 AM SWISS TYPE SCREW MACHINE OPERATOR Patient name: Bakari Smith Date of test: 02/26/2024 Hospital #: 0 Location: [facility] Interpreted by: Kip Pena M.D. Ph.D. Pig Machine Operator Helper: Lainey Oh RDCS RN: Hilda Monk RN Reason for Test: pre-kidney transplant evaluation Study quality: Technically good Referring Physician: TONYA HAMMONDS MD Contrast Agent: 0.45 ml Definity Administered, (1.05 ml wasted). BASELINE STUDY: Wall Motion Scoring (1=Normal 2=Hypo 3=Akinetic 4=Dyskin./Aneurysm 0=Not visualized) Parasternal [place]:MAS=1 BAS=1 MIL=1 RENATO=1 Parasternal [place]:MAS=1 MIS=1 DC=1 MIL=1 MAL=1 MA=1 Apical 4 Chambers:=1 MIS=1 BIS=1 BAL=1 MAL=1 AL=1 AC=1 Apical 2 Chambers:AI=1 DC=1 BI=1 BA=1 MA=1 AA=1 AC=1 Ejection Fraction: [...] 2=Hypo 3=Akinetic 4=Dyskin./Aneurysm 0=Not visualized) Parasternal [place]:MAS=1 BAS=1 MIL=1 RENATO=1 Parasternal [place]:MAS=1 MIS=1 DC=1 MIL=1 MAL=1 MA=1 Apical 4 Chambers:=1 MIS=1 BIS=1 BAL=1 MAL=1 AL=1 AC=1 Apical 2 Chambers:AI=1 DC=1 BI=1 BA=1 MA=1 AA=1 AC=1 Intravenous dobutamine [...] Ph.D. By signing this report, the attending steno pool supervisor certifies that he or she has personally supervised and interpreted the echocardiogram and has reviewed and or edited and agrees with the written comments contained within the report. Procedure Note Kip Pena MD PhD - 02/26/2024 Patient name: Bakari Smith Date of test: 02/26/2024 Hospital #: 0 Location: [facility] Interpreted by: Kip Pena M.D. Ph.D. Pig Machine Operator Helper: Lainey Oh RDCS RN: Hilda Monk RN Reason for Test: pre-kidney transplant evaluation Study quality: Technically good Referring Physician: TONYA HAMMONDS MD Contrast Agent: 0.45 ml Definity Administered, (1.05 ml wasted). BASELINE STUDY: Wall Motion Scoring (1=Normal 2=Hypo 3=Akinetic 4=Dyskin./Aneurysm 0=Not visualized) Parasternal [place]:MAS=1 BAS=1 MIL=1 RENATO=1 Parasternal [place]:MAS=1 MIS=1 DC=1 MIL=1 MAL=1 MA=1 Apical 4 Chambers:=1 MIS=1 BIS=1 BAL=1 MAL=1 AL=1 AC=1 Apical 2 Chambers:AI=1 DC=1 BI=1 BA=1 MA=1 AA=1 AC=1 Ejection Fraction: [...] 2=Hypo 3=Akinetic 4=Dyskin./Aneurysm 0=Not visualized) Parasternal [place]:MAS=1 BAS=1 MIL=1 RENATO=1 Parasternal [place]:MAS=1 MIS=1 DC=1 MIL=1 MAL=1 MA=1 Apical 4 Chambers:=1 MIS=1 BIS=1 BAL=1 MAL=1 AL=1 AC=1 Apical 2 Chambers:AI=1 DC=1 BI=1 BA=1 MA=1 AA=1 AC=1 Intravenous dobutamine [...] Ph.D. By signing this report, the attending steno pool supervisor certifies that he or she has personally supervised and interpreted the echocardiogram and has reviewed and or edited and agrees with the written comments contained within the report. Tonya Hammonds MD CV ECHO PROCEDURES Final Result * HLA Antibody Screen by PRA or SAB per Schedule (Class I and Class II) (02/26/2024 10:00 AM SWISS TYPE SCREW MACHINE OPERATOR) Blood 02/26/2024 10:0 0 AM SWISS TYPE SCREW MACHINE OPERATOR Narrative HISTOTRAC - SWISS TYPE SCREW MACHINE OPERATOR Sample received in lab and stored. No testing performed at this time. Bashir Alston MD LAB BLOOD ORDERABLES Final R esult HISTOTRAC * (ABNORMAL) eGFR (02/16/2024 11:34 AM SWISS TYPE SCREW MACHINE OPERATOR) eGFR 4(L) >=60 mL/min/1. 73 m2 Comment: [...] reviewed 2020. Blood 02/16/2024 11:3 4 AM SWISS TYPE SCREW MACHINE OPERATOR 02/16/2024 12:02 PM SWISS TYPE SCREW MACHINE OPERATOR us Tonya Hammonds MD LAB BLOOD ORDERABLE S Final Result [facility] Department [place] [address] * Differential, auto (02/16/2024 11:34 AM SWISS TYPE SCREW MACHINE OPERATOR) Neutrophil abs 5.1 1.5 - 6.5 K/cumm Imm gran abs 0.1 0.0 - 0.1 K/cumm [facility] Lymphocyte abs 2.0 0.8 - 3.3 K/cumm [facility] Monocyte abs 0.6 0.2 - 0.8 K/cumm [facility] Eosinophil abs 0.1 0.0 - 0.5 K/cumm [facility] Basophil abs 0.0 0.0 - 0.1 K/cumm [facility] Neutrophil pct 64.7 % [facility] Comment: Interpretive Data Percent cell count reference ranges are not reported, since discordance with absolute values may lead to misinterpretation of CBC data. Current Interpretive Data was last revised on 2017. Imm gran pct 0.6 % [facility] Comment: Interpretive Data Percent cell count reference ranges are not reported, since discordance with absolute values may lead to misinterpretation of CBC data. Current Interpretive Data was last revised on 2017. Lymphocyte pct 25.3 % [facility] Comment: Interpretive Data Percent cell count reference ranges are not reported, since discordance with absolute values may lead to misinterpretation of CBC data. Current Interpretive Data was last revised on 2017. Monocyte pct 7.3 % [facility] Comment: Interpretive Data Percent cell count reference ranges are not reported, since discordance with absolute values may lead to misinterpretation of CBC data. Current Interpretive Data was last revised on 2017. Eosinophil pct 1.8 % [facility] Comment: Interpretive Data Percent cell count reference ranges are not reported, since discordance with absolute values may lead to misinterpretation of CBC data. Current Interpretive Data was last revised on 2017. Basophil pct 0.3 % [facility] Comment: Interpretive Data Percent cell count reference ranges are not reported, since discordance with absolute values may lead to misinterpretation of CBC data. Current Interpretive Data was last revised on 2017. Blood 02/16/2024 11:3 4 AM SWISS TYPE SCREW MACHINE OPERATOR 02/16/2024 11:45 AM SWISS TYPE SCREW MACHINE OPERATOR us Tonya Hammonds MD LAB BLOOD ORDERABLE S Final Result [facility] Department of Laboratories [place], [place] [id number] * HIV 1/2 Antibody plus p24 Antigen Blood (02/16/2024 11:34 AM SWISS TYPE SCREW MACHINE OPERATOR) HIV 1/2 ab + p24 ag Nonreactive Nonreactive Comment:Nonreactive for HIV- 1 antigen and HIV-1/HIV-2 antibodies. No laboratory evidence of HIV infection. If acute HIV infection is suspected, consider testing for HIV-1 RNA. Current interpretive data was last revised on 21. Blood 02/16/2024 11:3 4 AM SWISS TYPE SCREW MACHINE OPERATOR 02/16/2024 11:45 AM SWISS TYPE SCREW MACHINE OPERATOR Tonya Hammonds MD LAB MICROBIOLOGY - GENERAL ORDERABLES Final Result [facility] [place] [address] * (ABNORMAL) CBC with auto differential (02/16/2024 11:34 AM SWISS TYPE SCREW MACHINE OPERATOR) WBC 7.8 3.8 - 9.9 K/cumm Hgb 8.6(L) 11.9 - 15.5 g/dL [facility] Hct 28.3(L) 35.6 - 45.5 % [facility] Plt 265 150 - 400 K/cumm [facility] MPV 10.2 9.1 - 12.3 fL [facility] RBC 3.24(L) 3.90 - 5.20 M/cumm [facility] MCV 87.3 81.3 - 96.4 fL [facility] MCH 26.5(L) 27.1 - 33.3 pg [facility] MCHC 30.4(L) 32.3 - 35.7 g/dL [facility] RDW CV 14.9 11.1 - 14.9 % [facility] RDW SD 48.1 35.7 - 48.1 fL [facility] NRBC abs 0.00 0.00 - 0.01 K/cumm [facility] Blood 02/16/2024 11:3 4 AM SWISS TYPE SCREW MACHINE OPERATOR 02/16/2024 11:45 AM SWISS TYPE SCREW MACHINE OPERATOR Tonya Hammonds MD LAB BLOOD ORDERABLE S Final Result [facility] Department [place] [address] * Hepatitis C antibody Blood (02/16/2024 11:34 AM SWISS TYPE SCREW MACHINE OPERATOR) Pathologist [facility] Hep C Ab Nonreactive Nonreactive Comment:Antibodies to HCV no t detected. Does NOT exclude the possibility of recent exposure to HCV. Current interpretive data was last revised on 21 Blood 02/16/2024 11:3 4 AM SWISS TYPE SCREW MACHINE OPERATOR 02/16/2024 11:45 AM SWISS TYPE SCREW MACHINE OPERATOR Tonya Hammonds MD LAB MICROBIOLOGY - GENERAL ORDERABLES Final Result [facility] Department [place] [address] * Hepatitis B core antibody, total Blood (02/16/2024 11:34 AM SWISS TYPE SCREW MACHINE OPERATOR) Pathologist [facility] Hep B core IgG/IgM Nonreactive Nonreactive Blood 02/16/2024 11:3 4 AM SWISS TYPE SCREW MACHINE OPERATOR 02/16/2024 11:45 AM SWISS TYPE SCREW MACHINE OPERATOR Tonya Hammonds MD LAB MICROBIOLOGY - GENERAL ORDERABLES Final Result [facility] Department [place] [address] * Hepatitis B surface antibody (immune status) Blood (02/16/2024 11:34 AM SWISS TYPE SCREW MACHINE OPERATOR) Pathologist [facility] HBsAb (immune status) Reactive Comment:This result is consi stent with immunity to Hepatitis B Virus when used in the setting of routine screening. Current interpretive data was last revised on 21 HBsAb (immune status) index 221.0 mIUnits/m L [facility] Blood 02/16/2024 11:3 4 AM SWISS TYPE SCREW MACHINE OPERATOR 02/16/2024 11:45 AM SWISS TYPE SCREW MACHINE OPERATOR Tonya Hammonds MD LAB MICROBIOLOGY - GENERAL ORDERABLES Final Result [facility] [place] [address] * Hepatitis B Surface Antigen Blood (02/16/2024 11:34 AM SWISS TYPE SCREW MACHINE OPERATOR) HepBsAg Nonreactive Nonreactive Blood 02/16/2024 11:3 4 AM SWISS TYPE SCREW MACHINE OPERATOR 02/16/2024 11:45 AM SWISS TYPE SCREW MACHINE OPERATOR us Tonya Hammonds MD LAB MICROBIOLOGY - GENERAL ORDERABLES Final Result Performing Organization Address [facility] Co de Phone Number [facility] [place] [address] * (ABNORMAL) Phosphorus (02/16/2024 11:34 AM SWISS TYPE SCREW MACHINE OPERATOR) Pathologist [facility] Phosphorus, pl 5.6(H) 2.3 - 4.5 mg/dL Blood 02/16/2024 11:3 4 AM SWISS TYPE SCREW MACHINE OPERATOR 02/16/2024 11:45 AM SWISS TYPE SCREW MACHINE OPERATOR us Tonya Hammonds MD LAB BLOOD ORDERABLE S Final Result Performing Organization Address [facility] Co de Phone Number [facility] [place] [address] * (ABNORMAL) PTH (02/16/2024 11:34 AM SWISS TYPE SCREW MACHINE OPERATOR) Pathologist [facility] PTH 335(H) 15 - 65 pg/mL Blood 02/16/2024 11:3 4 AM SWISS TYPE SCREW MACHINE OPERATOR 02/16/2024 11:45 AM SWISS TYPE SCREW MACHINE OPERATOR us Tonya Hammonds MD LAB BLOOD ORDERABLE S Final Result [facility] Department [place] [address] * (ABNORMAL) Hemoglobin A1c (02/16/2024 11:34 AM SWISS TYPE SCREW MACHINE OPERATOR) Hgb A1C 6.2(H) 4.0 - 5.6 % Estimated Average Glucose 131 mg/dL [facility] Comment: The ADA recommends reporting an estimated Average Glucose (eAG) with all Hemoglobin A1c results using the equation derived from a study of 507 normal and diabetic adults. Minority populations were underrepresented and children were not included. (Diabetes Care 2020; 43(S1): S66-S76). The eAG is not equivalent to a fasting glucose. Blood 02/16/2024 11:3 4 AM SWISS TYPE SCREW MACHINE OPERATOR 02/16/2024 11:45 AM SWISS TYPE SCREW MACHINE OPERATOR us Tonya Hammonds MD LAB BLOOD ORDERABLE S Final Result [facility] Department [place] [address] * (ABNORMAL) Comprehensive metabolic panel (02/16/2024 11:34 AM SWISS TYPE SCREW MACHINE OPERATOR) Pathologist [facility] Sodium 140 135 - 145 mmol/L Potassium, pl 4.4 3.3 - 4.9 mmol/L [facility] Chloride 102 97 - 110 mmol/L [facility] CO2 28 22 - 32 mmol/L [facility] Anion gap 10 2 - 15 mmol/L [facility] BUN 46(H) 6 - 25 mg/dL [facility] Creatinine 10.77(H) 0.60 - 1.10 mg/dL [facility] Glucose 223(H) 70 - 199 mg/dL [facility] Comment: Interpretive Data Fasting glucose >/= 126 [...] Calcium 8.8 8.5 - 10.3 mg/dL [facility] Bilirubin, total 0.2 0.1 - 1.2 mg/dL [facility] Protein, pl 6.8 6.5 - 8.5 g/dL [facility] Albumin 3.1(L) 3.5 - 5.0 g/dL [facility] Alk phos 233(H) 40 - 130 Units/L [facility] ALT 57(H) 7 - 45 Units/L [facility] AST 50(H) 10 - 45 Units/L [facility] Blood 02/16/2024 11:3 4 AM SWISS TYPE SCREW MACHINE OPERATOR 02/16/2024 11:45 AM SWISS TYPE SCREW MACHINE OPERATOR us Tonya Hammonds MD LAB BLOOD ORDERABLE S Final Result Performing Organization Address City/[facility]/ZIP Co de Phone Number [facility] [place] [address] * HLA Antibody Screen by PRA or SAB per Schedule (Class I and Class II) (01/26/2024 10:00 AM SWISS TYPE SCREW MACHINE OPERATOR) Blood 01/26/2024 10:0 0 AM SWISS TYPE SCREW MACHINE OPERATOR Narrative HISTOTRAC - SWISS TYPE SCREW MACHINE OPERATOR Sample received in lab. Single Antigen Antibody Screen ordered. us Bashir Alston MD LAB BLOOD ORDERABLES Final R esult HISTOTR[facility] * HLA Antibody Screen - SAB (Class I and Class II) (01/26/2024 10:00 AM SWISS TYPE SCREW MACHINE OPERATOR) Class I Treatment EDTA HISTOTRAC Class I [...] per SSO. HISTOTRAC 01/26/2024 10:0 0 AM SWISS TYPE SCREW MACHINE OPERATOR 01/29/2024 1:28 PM SWISS TYPE SCREW MACHINE OPERATOR Narrative HISTOTRAC - 01/29/2024 1:28 PM SWISS TYPE SCREW MACHINE OPERATOR Single-antigen HLA antibody screen is performed on serum samples using a method developed and validated by the [facility] HLA laboratory based on an FDA-approved IVD kit (LABScreen Single-Antigen, [place], [place], [place]). All patient serum samples are pretreated with EDTA before the screen to prevent complement interference. Additional serum treatments, such as adsorption and DTT treatment, may be performed as indicated. Interpretive comments: Low risk: MFI [id number]. Moderate risk: MFI [id number]. Increased risk: MFI >/= 5000. The presence [...] antigens to avoid. Testing performed at the [facility], [address] [place] [address], 5th floor, [place], [address]. [facility] # [id number]. Amber Berry, Ph.D., Kindergarten Prep Teacher, HLA Laboratory Jonathan Brennan M.D., Ph.D., Soil Sampler, HLA Laboratory Rehana Alarcon, Ph.D., CLIA Soil Sampler, [facility] Current methodology and interpretive comments last revised on 03/20/2022. us Bashir Alston MD LAB BLOOD ORDERABLES Final R esult Performing Organization Address City/[facility]/ZIP Co de Phone Number [facility] * POCT glucose (01/08/2024 9:44 AM SWISS TYPE SCREW MACHINE OPERATOR) Glucose, POC 97 70 - 199 mg/dL Blood 01/08/2024 9:44 AM SWISS TYPE SCREW MACHINE OPERATOR 01/08/2024 9:44 AM SWISS TYPE SCREW MACHINE OPERATOR us Brandan Orr MD LAB POCT ORDERABLES - DEV ICE Final Result Performing Organization Address City/[facility]/ZIP Co de Phone Number DENNIS [facility] Department [place] [address] * (ABNORMAL) Troponin I high-sensitivity 4-hour (01/08/2024 7:44 AM SWISS TYPE SCREW MACHINE OPERATOR) Trop I hs 131(H) <=17 ng/L Comment: Interpretive Data For further hscTnI resources including the diagnostic algorithm and an aid in interpretation, copy and paste this link: https://bjhlab.testcatalog.org/show/hsTrop-1 Current Interpretive Data last revised 2019. Trop I hs pct delta 8 % [facility] Trop I hs interp Equivocal [facility] Blood 01/08/2024 7:44 AM SWISS TYPE SCREW MACHINE OPERATOR 01/08/2024 7:53 AM SWISS TYPE SCREW MACHINE OPERATOR us Stacey Thomas MD LAB BLOOD ORDERABLES Final Result Performing Organization Address [facility]/ZIP Co de Phone Number [facility] [place] [address] * POCT glucose (01/08/2024 7:43 AM SWISS TYPE SCREW MACHINE OPERATOR) Glucose, POC 92 70 - 199 mg/dL Blood 01/08/2024 7:43 AM SWISS TYPE SCREW MACHINE OPERATOR 01/08/2024 7:43 AM SWISS TYPE SCREW MACHINE OPERATOR Brandan Orr MD LAB POCT ORDERABLES - DEV ICE Final Result Performing Organization Address City/[facility]/[place] [address] * POCT glucose (01/08/2024 5:48 AM SWISS TYPE SCREW MACHINE OPERATOR) Glucose, POC 109 70 - 199 mg/dL Blood 01/08/2024 5:48 AM SWISS TYPE SCREW MACHINE OPERATOR 01/08/2024 5:48 AM SWISS TYPE SCREW MACHINE OPERATOR us Amauri Greene MD PhD LAB POCT ORDERABLES - DEVICE Final Result Performing Organization Address City/[facility]/ZIP Co de Phone Number [facility] Department [place] [address] * (ABNORMAL) Troponin I high-sensitivity 2-hour (01/08/2024 5:47 AM SWISS TYPE SCREW MACHINE OPERATOR) Trop I hs 140(H) <=17 ng/L Comment: reviewed Interpretive Data For further hscTnI resources including the diagnostic algorithm and an aid in interpretation, copy and paste this link: https://bjhlab.testcatalog.org/show/hsTrop-1 Current Interpretive Data last revised 2019. Trop I hs pct delta 16(C) % [facility] Comment:reviewed Trop I hs interp Significa nt(C) [facility] Comment:reviewed Blood 01/08/2024 5:47 AM SWISS TYPE SCREW MACHINE OPERATOR 01/08/2024 5:53 AM SWISS TYPE SCREW MACHINE OPERATOR Stacey Thomas MD LAB BLOOD ORDERABLES Final Result Performing Organization Address City/[facility] Co de Phone Number [facility] Department [place] [address] * Critical result callback Cardio chemistry (01/08/2024 5:47 AM SWISS TYPE SCREW MACHINE OPERATOR) Date Notified [id number] Time Notified 625 DENNIS [facility] Test name Trop I hs 2hr p DENNIS HOLT Called/Read Back Corin HOLT Credentials MD DENNIS HOLT Called By SHAWN COLLINS [facility] Blood 01/08/2024 5:47 AM SWISS TYPE SCREW MACHINE OPERATOR 01/08/2024 5:53 AM SWISS TYPE SCREW MACHINE OPERATOR Stacey Thomas MD LAB BLOOD ORDERABLES Final Result [facility] [place] [address] * (ABNORMAL) Troponin I high-sensitivity series (baseline, 2hr, 4hr, 6hr) (01/08/2024 3:39 AM SWISS TYPE SCREW MACHINE OPERATOR) Trop I hs 121(H) <=17 ng/L Comment: Interpretive Data For further hscTnI resources including the diagnostic algorithm and an aid in interpretation, copy and paste this link: https://bjhlab.testcatalog.org/show/hsTrop-1 Current Interpretive Data last revised 2019. Blood 01/08/2024 3:39 AM SWISS TYPE SCREW MACHINE OPERATOR 01/08/2024 3:46 AM SWISS TYPE SCREW MACHINE OPERATOR us Amauri Greene MD PhD LAB BLOOD ORDERABLE S Final Result DENNIS HOLT [facility] Department [place] [address] * (ABNORMAL) eGFR (01/08/2024 3:39 AM SWISS TYPE SCREW MACHINE OPERATOR) eGFR 3(L) >=60 mL/min/1. 73 m2 Comment: [...] last reviewed 2020. Blood 01/08/2024 3:39 AM SWISS TYPE SCREW MACHINE OPERATOR 01/08/2024 3:46 AM SWISS TYPE SCREW MACHINE OPERATOR us Stacey Thomas MD LAB BLOOD ORDERABLES Final Result DENNIS HOLT [facility] Department [place] [address] * (ABNORMAL) Differential, auto (01/08/2024 3:39 AM SWISS TYPE SCREW MACHINE OPERATOR) Neutrophil abs 7.0(H) 1.5 - 6.5 K/cumm Imm gran abs 0.1 0.0 - 0.1 K/cumm [facility] Lymphocyte abs 2.2 0.8 - 3.3 K/cumm CERNER [facility] Monocyte abs 1.0(H) 0.2 - 0.8 K/cumm [facility] Eosinophil abs 0.2 0.0 - 0.5 K/cumm [facility] Basophil abs 0.1 0.0 - 0.1 K/cumm [facility] Neutrophil pct 66.7 % [facility] Comment: Interpretive Data Percent cell count reference ranges are not reported, since discordance with absolute values may lead to misinterpretation of CBC data. Current Interpretive Data was last revised on 2017. Imm gran pct 1.2 % [facility] Comment: Interpretive Data Percent cell count reference ranges are not reported, since discordance with absolute values may lead to misinterpretation of CBC data. Current Interpretive Data was last revised on 2017. Lymphocyte pct 20.4 % [facility] Comment: Interpretive Data Percent cell count reference ranges are not reported, since discordance with absolute values may lead to misinterpretation of CBC data. Current Interpretive Data was last revised on 2017. Monocyte pct 9.0 % [facility] Comment: Interpretive Data Percent cell count reference ranges are not reported, since discordance with absolute values may lead to misinterpretation of CBC data. Current Interpretive Data was last revised on 2017. Eosinophil pct 1.7 % [facility] Comment: Interpretive Data Percent cell count reference ranges are not reported, since discordance with absolute values may lead to misinterpretation of CBC data. Current Interpretive Data was last revised on 2017. Basophil pct 1.0 % [facility] Comment: Interpretive Data Percent cell count reference ranges are not reported, since discordance with absolute values may lead to misinterpretation of CBC data. Current Interpretive Data was last revised on 2017. Blood 01/08/2024 3:39 AM SWISS TYPE SCREW MACHINE OPERATOR 01/08/2024 4:20 AM SWISS TYPE SCREW MACHINE OPERATOR us Stacey Thomas MD LAB BLOOD ORDERABLES Final Result Performing Organization Address [facility] Co de Phone Number [facility] Department [place] [address] * (ABNORMAL) CBC with auto differential (01/08/2024 3:39 AM SWISS TYPE SCREW MACHINE OPERATOR) Pathologist [facility] WBC 10.6(H) 3.8 - 9.9 K/cumm Hgb 9.3(L) 11.9 - 15.5 g/dL [facility] Hct 29.7(L) 35.6 - 45.5 % [facility] Plt 205 150 - 400 K/cumm [facility] MPV 10.6 9.1 - 12.3 fL [facility] RBC 3.44(L) 3.90 - 5.20 M/cumm [facility] MCV 86.3 81.3 - 96.4 fL [facility] MCH 27.0(L) 27.1 - 33.3 pg [facility] MCHC 31.3(L) 32.3 - 35.7 g/dL [facility] RDW CV 14.5 11.1 - 14.9 % [facility] RDW SD 45.1 35.7 - 48.1 fL [facility] NRBC abs 0.00 0.00 - 0.01 K/cumm [facility] Blood 01/08/2024 3:39 AM SWISS TYPE SCREW MACHINE OPERATOR 01/08/2024 4:20 AM SWISS TYPE SCREW MACHINE OPERATOR us Amauri Greene MD PhD LAB BLOOD ORDERABLE S Final Result Performing Organization Address City/[facility]/ZIP Co de Phone Number [facility] Department [place] [address] * (ABNORMAL) Comprehensive metabolic panel (01/08/2024 3:39 AM SWISS TYPE SCREW MACHINE OPERATOR) Sodium 139 135 - 145 mmol/L Potassium, pl 4.8 3.3 - 4.9 mmol/L [facility] Chloride 101 97 - 110 mmol/L [facility] CO2 23 22 - 32 mmol/L [facility] Anion gap 15 2 - 15 mmol/L [facility] BUN 67(H) 6 - 25 mg/dL [facility] Creatinine 13.73(H) 0.60 - 1.10 mg/dL [facility] Glucose 138 70 - 199 mg/dL [facility] Comment: Interpretive Data Fasting glucose >/= 126 [...] 2022. Calcium 9.7 8.5 - 10.3 mg/dL [facility] Bilirubin, total 0.2 0.1 - 1.2 mg/dL [facility] Protein, pl 7.5 6.5 - 8.5 g/dL [facility] Albumin 3.2(L) 3.5 - 5.0 g/dL [facility] Alk phos 179(H) 40 - 130 Units/L [facility] ALT 40 7 - 45 Units/L [facility] AST 45 10 - 45 Units/L [facility] Blood 01/08/2024 3:39 AM SWISS TYPE SCREW MACHINE OPERATOR 01/08/2024 3:46 AM SWISS TYPE SCREW MACHINE OPERATOR us Amauri Greene MD PhD LAB BLOOD ORDERABLE S Final Result [facility] Department [place] [address] * XR Chest PA Lateral 2 Views (01/07/2024 10:56 PM SWISS TYPE SCREW MACHINE OPERATOR) Anatomical Region Laterality Modality Body, Chest N/A Computed Radiogr aphy 01/08/2024 12:1 0 AM SWISS TYPE SCREW MACHINE OPERATOR Impressions 01/08/2024 8:52 AM SWISS TYPE SCREW MACHINE OPERATOR The current study is compared with the [...] Nick Miles M.D. Narrative 01/08/2024 8:52 AM SWISS TYPE SCREW MACHINE OPERATOR EXAMINATION: 2 view chest radiograph Procedure Note [...] it. Electronically signed by: Nick Miles M.D. Amauri Greene MD PhD IMG XR PROCEDURES F inal Result * ECG 12-LEAD (01/07/2024 10:21 PM SWISS TYPE SCREW MACHINE OPERATOR) Narrative [facility] - 01/07/2024 10:21 PM SWISS TYPE SCREW MACHINE OPERATOR Stacey Thomas MD 01/07/2024 10:23 PM ECG [...] MD PhD ECG ORDERABLES Fin al Result Performing Organization Address City/State/[facility] Co de Phone Number [facility] * (ABNORMAL) POCT glucose (01/07/2024 10:21 PM SWISS TYPE SCREW MACHINE OPERATOR) Glucose, POC 200(H) 70 - 199 mg/dL Blood 01/07/2024 10:2 1 PM SWISS TYPE SCREW MACHINE OPERATOR 01/07/2024 10:21 PM SWISS TYPE SCREW MACHINE OPERATOR us Notinfile Unknown LAB POCT ORDERABLES - DEVICE F inal Result DENNIS [facility] [place] [address] * Colonoscopy (07/21/2023 10:23 AM CDT) Anatomical Region Laterality Modality Other Narrative Procedure Note Haritha Stover MD - 07/21/2023 10:23 AM CDT [facility] Patient Name: Bakari Smith Procedure Date: 07/21/2023 10:23 AM Date of : 1980 Admit Type: Outpatient Age: 43 Gender: Female Attending MD: Haritha Stover M.D. Room: [facility] ENDOSCOPY ROOM 02 Note Status: Finalized Procedure: [...] The scope was passed under direct vision.The [id number] Colonoscope was introducedthrough the anus and advanced to the the cecum, identifiedby appendiceal orifice and ileocecal valve. The colonoscopy was performed without difficulty. The patient tolerated the procedure well. The qualityof the bowel preparation was evaluated using the BBPS ([place] Bowel Preparation Scale) with scores of:Right Colon [...] On: 07/21/2023 10:23 AM Recognized by the [place] [employer] for Gastrointestinal Endoscopy for promoting quality in endoscopy us Haritha Stover MD ENDOSCOPY PROCEDURES Final Res ult * HM MAMMOGRAPHY (06/04/2021) Impressions Rashida Schneider - 06/04/2021 IMPRESSION: 1. Benign mammogram. READ BY: NINO BAJWA MD 06/05/2021 Historical Provider HEALTH MAINTENANCE Final Result * Lipid panel (04/30/2021 12:22 PM SWISS TYPE SCREW MACHINE OPERATOR) Cholesterol 139 30 - 199 mg/dL [facility] Comment: Interpretive Data Ages < or [...] revised on 2017. Triglycerides 64 <=149 mg/dL [facility] Comment: Interpretive Data Ages < or [...] revised on 2017. HDL 70 >=40 mg/dL [facility] Comment: Interpretive Data Ages < or [...] on 2017. LDL, calculated 56 <=129 mg/dL [facility] Comment: Interpretive Data Ages < or [...] revised on 2017. Non-HDL Cholesterol 69 mg/dL [facility] Comment: Interpretive Data Ages < or = [...] last revised on 2017. Chol/HDL ratio 2 [facility] Blood 04/30/2021 12:2 2 PM SWISS TYPE SCREW MACHINE OPERATOR 04/30/2021 1:03 PM SWISS TYPE SCREW MACHINE OPERATOR us Ren Pelayo MD LAB BLOOD ORDERABLES Final Result [facility] [place] [address] from Last 3 Months or Most Recently Relevant to Health Maintenance Insurance [employer] [facility] [place] MEDICARE MEDICARE MEDICARE MEDICARE Advance Directives For more information, please contact: [phone] * Full Code (Latest Code Status on File) Date Activated Date Inactivated Comments 07/21/2023 9:59 AM 07/21/2023 3:56 PM Care Teams Procedure Manager Relationship Specialty Start Date End Date No, Physician PCP - General 02/16/24 Almita Rizzo, RN [address] [place] [address] Package Pick Up 04/04/21 Beth Fernandez MD [address] [facility] [address] [place] [address] Referring Physician Nephrology 04/04/21 Maday Oviedo MD [address] [facility] [address] [place] [address] Neurology 09/12/22 Tomasz Scott DO [address] [place] [address] Bindery Leadperson Cardiology 09/16/22
[2024-04-01 06:02] VITALS: BP 175/82; PULSE 77; RESP 20; TEMP 37.2; O2SAT 100
--- NOTE | 2024-04-01 06:34 | WPDHPUPDATE1 ---
History and Physical Update Update Date/Time: 04/01/24 06:34 History and Physical has been reviewed, including an updated exam of the patient. There are NO changes in the patient's condition. Risks, benefits, and alternatives have been discussed and questions answered. Patient agrees to proceed with procedure.
[2024-04-01] MEDS: SODIUM CHLORIDE 0.9% IV 500 ML 30 ML IV CONT (06:40)
[2024-04-01] MEDS: ACETAMINOPHEN 500 MG TABLET 1000 MG PO (06:40)
[2024-04-01 06:41] LABS: Anion Gap 10 mmol/L (4-12); Blood Urea Nitrogen 55 mg/dL (7-17); Carbon Dioxide 23 mmol/L (22-30); Chloride 108 mmol/L (98-107); Estimated CRCL calculation 5 ml/min; Estimated Glomerular Filt Rate 4; Glucose 111 mg/dL (65-110); Potassium 4.2 mmol/L (3.4-5.0); Sodium 141 mmol/L (137-145)
--- NOTE | 2024-04-01 06:59 | P.PNAN_ITS ---
Anes - Eval Pre Procedure Procedure: Operation Date: 04/01/24 07:30 Proposed Procedures p Hysteroscopy Dilation and Curettage - Meir Nazario MD Date/Time: 04/01/24 06:59 Pre Op Diagnosis: Post Menopaual Bleed Patient Data Age: 44 Gender: F Height: 1.6 m Weight: 91.9 kg Last Vital Signs Temp 37.2 C 04/01/24 06:02 Pulse 77 04/01/24 06:02 Resp 20 04/01/24 06:02 BP 175/82 H 04/01/24 06:02 Pulse Ox 100 04/01/24 06:02 O2 Del Method Room Air 04/01/24 06:02 Allergies Allergy/AdvReac Type Severity Reaction Status Date / Time metronidazole Allergy Intermediate Rash Verified 04/01/24 05:56 omeprazole Allergy Intermediate Rash Verified 04/01/24 05:56 Home Medications ?Medication ?Instructions ?Recorded ?Confirmed ?Type aspirin 81 mg chewable tablet 81 mg PO DAILY@0800 #30 tabs 05/05/22 04/01/24 Rx (Children's Aspirin) amlodipine 5 mg tablet 5 mg PO DAILY 12/30/23 04/01/24 History atorvastatin 20 mg tablet 20 mg PO DAILY 12/30/23 04/01/24 History blood sugar diagnostic (Blood #100 ea 12/30/23 03/22/24 Rx Glucose Test strips) blood-glucose meter (Blood Glucose #1 ea 12/30/23 03/22/24 Rx Monitoring kit) gabapentin 100 mg capsule 200 mg (2 x 100 mg) PO TID #540 12/30/23 04/01/24 Rx caps lancets 31 gauge #100 ea 12/30/23 03/22/24 Rx sevelamer carbonate 800 mg tablet 1,600 mg PO TIDWM 01/06/24 04/01/24 History blood-glucose sensor (FreeStyle #2 ea 02/04/24 03/22/24 Rx Alexandro 3 Plus Sensor device) insulin glargine 100 unit/mL (3 14 unit (0.14 mL) subcut HS #15 mL 03/03/24 04/01/24 Rx mL) subcutaneous pen (Lantus Solostar U-100 Insulin) cholecalciferol (vitamin D3) 125 5,000 unit PO DAILY 03/07/24 04/01/24 History mcg (5,000 unit) tablet (Vitamin D3) hydralazine 100 mg tablet 100 mg PO Q12H 03/07/24 04/01/24 History labetalol 200 mg tablet 200 mg PO Q12H 03/22/24 04/01/24 History Laboratory Tests 04/01/24 06:25 Sodium 141 mmol/L (137-145) Potassium 4.2 mmol/L (3.4-5.0) Chloride 108 H mmol/L (98-107) Carbon Dioxide 23 mmol/L (22-30) Anion Gap 10 mmol/L (4-12) BUN 55 H D mg/dL (7-17) Creatinine 12.95 H mg/dL (0.7-1.0) Estim Creat Clear Calc 5 ml/min Estimated GFR 4 L (59 - ) Glucose 111 H mg/dL (65-110) Calcium 9.0 mg/dL (8.4-10.2) Patient hx anesthesia problems: none Family hx anesthesia problems: none Results Review: All pre-operative results and documents have been reviewed as part of the pre- operative evaluation. [facility] Past Medical History Medical History Peritoneal dialysis catheter in place Requires peritoneal dialysis ESRD (end stage renal disease) Obesity (BMI 30-39.9) Dysphagia, oropharyngeal Morbid obesity Chronic kidney disease, stage 5 Pyuria Erythropoietin deficiency anemia Gastroesophageal reflux Arthritis Right wrist left knee Irritable bowel syndrome Diverticulitis Pneumonia Peripheral neuropathy Diabetes Hypertension Surgical History Surgical History Hx of cholecystectomy History of salpingo-oophorectomy Delivery by section X3 History of tubal ligation Hx of appendectomy Family History Family History Mother Diabetes mellitus Breast cancer Sibling History of blood clots due to blood clot Heart disease Sister has something wrong with her heart Father Hypertension Prostate carcinoma Daughter , 06/08/2021, 19yo Pulmonary embolism Social History Social History Social History: She has 3 children, 1 . She is single. Her oldest daughter is a durable power waste recycler for healthcare. The patient desires to be a full code. Patient stated that she has 5 grandchildren and watches her granddaughter most of the time. Code status full code Smoking status: Never smoker Second hand tobacco smoke exposure: Yes Alcohol intake: never Substance use: never Substance use type: does not use Do You Feel Safe in your Home?: Yes Lack of Transportation: No Lack of Food: Never True Current Housing: I Have Housing Concerned About Future Housing: No Difficulty Paying Gas/Electric Bills: No Difficulty Paying for Meds: No Currently Unemployed: No Education: High School Diploma/GED Difficulty w/ Childcare or Family Care: No Living arrangements: with family Additional living arrangements comments: with son Occupation/Education: other Additional occupation/education comments: 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
--- NOTE | 2024-04-01 07:01 | WPDANESEPPF ---
Anes - Initial Pre Proc Eval Procedure: Operation Date: 04/01/24 07:30 Proposed Procedures p Hysteroscopy Dilation and Curettage - Meir Nazario MD Date/Time: 04/01/24 07:01 Surgeon: Meir Nazario MD Pre Op Diagnosis: Post Menopaual Bleed Patient Data Age: 44 Gender: F Height: 1.6 m Weight: 91.9 kg Last Vital Signs Temp 37.2 C 04/01/24 06:02 Pulse 77 04/01/24 06:02 Resp 20 04/01/24 06:02 BP 175/82 H 04/01/24 06:02 Pulse Ox 100 04/01/24 06:02 O2 Del Method Room Air 04/01/24 06:02 Allergies Allergy/AdvReac Type Severity Reaction Status Date / Time metronidazole Allergy Intermediate Rash Verified 04/01/24 05:56 omeprazole Allergy Intermediate Rash Verified 04/01/24 05:56 Home Medications ?Medication ?Instructions ?Recorded ?Confirmed ?Type aspirin 81 mg chewable tablet 81 mg PO DAILY@0800 #30 tabs 05/05/22 04/01/24 Rx (Children's Aspirin) amlodipine 5 mg tablet 5 mg PO DAILY 12/30/23 04/01/24 History atorvastatin 20 mg tablet 20 mg PO DAILY 12/30/23 04/01/24 History blood sugar diagnostic (Blood #100 ea 12/30/23 03/22/24 Rx Glucose Test strips) blood-glucose meter (Blood Glucose #1 ea 12/30/23 03/22/24 Rx Monitoring kit) gabapentin 100 mg capsule 200 mg (2 x 100 mg) PO TID #540 12/30/23 04/01/24 Rx caps lancets 31 gauge #100 ea 12/30/23 03/22/24 Rx sevelamer carbonate 800 mg tablet 1,600 mg PO TIDWM 01/06/24 04/01/24 History blood-glucose sensor (FreeStyle #2 ea 02/04/24 03/22/24 Rx Alexandro 3 Plus Sensor device) insulin glargine 100 unit/mL (3 14 unit (0.14 mL) subcut HS #15 mL 03/03/24 04/01/24 Rx mL) subcutaneous pen (Lantus Solostar U-100 Insulin) cholecalciferol (vitamin D3) 125 5,000 unit PO DAILY 03/07/24 04/01/24 History mcg (5,000 unit) tablet (Vitamin D3) hydralazine 100 mg tablet 100 mg PO Q12H 03/07/24 04/01/24 History labetalol 200 mg tablet 200 mg PO Q12H 03/22/24 04/01/24 History Laboratory Tests 04/01/24 06:25 Sodium 141 mmol/L (137-145) Potassium 4.2 mmol/L (3.4-5.0) Chloride 108 H mmol/L (98-107) Carbon Dioxide 23 mmol/L (22-30) Anion Gap 10 mmol/L (4-12) BUN 55 H D mg/dL (7-17) Creatinine 12.95 H mg/dL (0.7-1.0) Estim Creat Clear Calc 5 ml/min Estimated GFR 4 L (59 - ) Glucose 111 H mg/dL (65-110) Calcium 9.0 mg/dL (8.4-10.2) Patient hx anesthesia problems: none Family hx anesthesia problems: none Results Review: All pre-operative results and documents have been reviewed as part of the pre-operative evaluation. [facility] Past Medical History Medical History Peritoneal dialysis catheter in place Requires peritoneal dialysis ESRD (end stage renal disease) Obesity (BMI 30-39.9) Dysphagia, oropharyngeal Morbid obesity Chronic kidney disease, stage 5 Pyuria Erythropoietin deficiency anemia Gastroesophageal reflux Arthritis Right wrist left knee Irritable bowel syndrome Diverticulitis Pneumonia Peripheral neuropathy Diabetes Hypertension Surgical History Surgical History Hx of cholecystectomy History of salpingo-oophorectomy Delivery by section X3 History of tubal ligation Hx of appendectomy Family History Family History Mother Diabetes mellitus Breast cancer Sibling History of blood clots due to blood clot Heart disease Sister has something wrong with her heart Father Hypertension Prostate carcinoma Daughter , 06/08/2021, 19yo Pulmonary embolism Social History Social History Social History: She has 3 children, 1 . She is single. Her oldest daughter is a durable power mergers and acquisitions attorney for healthcare. The patient desires to be a full code. Patient stated that she has 5 grandchildren and watches her granddaughter most of the time. Code status full code Smoking status: Never smoker Second hand tobacco smoke exposure: Yes Alcohol intake: never Substance use: never Substance use type: does not use Do You Feel Safe in your Home?: Yes Lack of Transportation: No Lack of Food: Never True Current Housing: I Have Housing Concerned About Future Housing: No Difficulty Paying Gas/Electric Bills: No Difficulty Paying for Meds: No Currently Unemployed: No Education: High School Diploma/GED Difficulty w/ Childcare or Family Care: No Living arrangements: with family Additional living arrangements comments: with son Occupation/Education: other Additional occupation/education comments: 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, 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 Gender identity (if verbalized by the patient): Female Sexual Orientation (if Verbalized by the Patient): Straight or Heterosexual Spiritual care concerns: No Agree to blood products: Yes Anes - Eval Final PreProcedure Day of Procedure 04/01/24 07:01 Patient weight: obese Heart: regular rate and rhythm Lungs: decreased breath sounds Airway: Mallampati scale class II Neurological: alert and oriented Last oral intake: >/= 8 hours ASA classification: IV Emergent: no Anesthetic plan: proceed Anesthesia type and monitoring: general GIVS and standard monitoring Results Review: All pre-operative results and documents have been reviewed as part of the pre-operative evaluation. Informed Consent: The patient's anesthetic plan and its attendant risks and benefits were discussed with the patient/family/POA. Questions were solicited and answers provided to the satisfaction of the patient/family/POA.
[2024-04-01] MEDS: ceFAZolin 2 GM/D5W 50 ML 2 GM/50 ML BAG IVPB (07:26)
[2024-04-01] MEDS: LIDOCAINE 1% LOCAL INJ 20 ML VIAL 10 ML INFILTRATE (07:35)
[2024-04-01 07:54] VITALS: BP 118/73; PULSE 83; RESP 20
[2024-04-01 08:25] VITALS: BP 130/73; PULSE 76; RESP 20
[2024-04-01 08:55] VITALS: BP 166/89; PULSE 80; RESP 20
[2024-04-01 09:10] VITALS: BP 161/88; PULSE 78; RESP 20
--- NOTE | 2024-04-01 10:12 | W.PM.PROC2 ---
Procedure Note - Detailed Date of Procedure 04/01/24 Pre-op Diagnosis Post Menopausal Bleeding Thickened endometrium Post-op Diagnosis Other (Endometrial lesion) Procedure Performed Hysteroscopy with dilation and curettage and removal of endometrial lesion Surgeon Meir Nazario MD Anesthesia MAC and Local Indications Postmenopausal bleeding with abnormal thickened endometrium and insufficient endometrial tissue for biopsy Findings atrophic cavity with two small growth in cavity consistent with endometrial polyps Description of Procedure After informed consent was obtained patient was taken to the operating room and adequate IV sedation was administered. Attention was turned to the vagina. Speculum was inserted. Single-tooth tenaculum placed on the anterior lip of the cervix. 1% lidocaine was injected at the cervicovaginal interface at the 2,5,8, and 10 position. The cervix was dilated to a 4 Mullins dilator. The hysteroscope was inserted into the cavity using hydrodilation. The findings were 2 polyps in the cavity. The rest of the cavity was visualized which was atrophic. The hysteroscope was removed. The Aveta instrument was inserted into the cavity and the endometrial lesions were removed. The cavity appeared normal. A curettage was performed with minimal tissue obtained. The hysteroscope was removed the single-tooth tenaculum was removed hemostasis was noted at the tenaculum site. Sponge count correct. The patient taken to recovery in stable condition. Estimated Blood Loss 5 Drains No Packing No Pathology Yes (endometrial shavings and scant curettings) Complications No immediate complications Condition Stable Disposition Same day [facility] Billing Surgery - Charge Forward: Surgery Billing
== END 2024-04-01 09:25 | disposition home or self-care (01) ==
PROVIDERS: Anesthesiology; PCP Nurse Practitioner Family; Visit Provider Obstetrics & Gynecology
PROC: 0U5B8ZZ Destruction of Endometrium, Via Natural or Artificial Opening Endoscopic (ICD-10-PCS; CPT 58563; principal; 2024-04-01 07:30)
DX: N95.0 Postmenopausal bleeding (principal); N84.0 Polyp of corpus uteri
CPT/HCPCS: 58558; 36415; 80048; 88305; A9270; J0690; J2003; J2250; J2704; J3010; J7040

== ENCOUNTER 2024-04-04 09:41 | Emergency (ER) | payer MEDICARE, MEDICAID, SELFPAY ==
--- NOTE | ~2024-04-04 | XR_ITS ---
HISTORY: shoulder pain COMPARISON: None TECHNIQUE: 3 views of the left shoulder were performed FINDINGS: No acute fracture. The glenohumeral and acromioclavicular joint space is maintained The visualized portion of the adjacent left lung is clear. The humeral head is well seated within the glenoid fossa. IMPRESSION: No acute fracture or anterior dislocation. Reviewed, dictated and finalized at location A. 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
--- NOTE | ~2024-04-04 | XR_ITS ---
CHEST RADIOGRAPH CLINICAL HISTORY: shoulder pain . COMPARISON: 01/05/2024 TECHNIQUE: Single portable view of the chest. FINDINGS The cardiomediastinal silhouette is unremarkable. The lungs are clear. Visualized osseous structures and soft tissues are unremarkable. IMPRESSION: No focal infiltrate or effusion. Reviewed, dictated and finalized at location A. 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
--- NOTE | ~2024-04-04 | US_ITS ---
EXAMINATION: US venous doppler UE DATE: 04/04/2024 14:07 INDICATION: Left upper limb pain. TECHNIQUE: Grayscale ultrasound images without and with compression and Doppler ultrasound images of the left upper extremity veins were obtained. COMPARISON: Ultrasound 06/19/2023 FINDINGS: The visualized portions of the left internal jugular vein, subclavian vein, axillary vein, brachial v eins, basilic vein, cephalic vein, radial vein, and ulnar vein are patent. There is a thrombosed dial ysis graft in the left upper limb that is no in use according to the patient. IMPRESSION: 1. No deep venous thrombosis. 2. 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
[2024-04-04 10:00] VITALS: BP 182/87; PULSE 76; RESP 16; TEMP 36.6; O2SAT 100
--- OUTSIDE RECORDS SUMMARY | 2024-04-04 10:16 | XMS_ITS | Clinical Summary ---
Author Organization [facility] Address [address] [place] [id number] Phone Care Team Providers Care Bag Shop Worker Name Role Phone Jessie Dickson MD Primary Care Provider [phone] Allergies Active Allergy Reactions Criticality Noted Date [...] times daily. 05/28/2018 Active ergocalciferol (VITAMIN D2) 78594 units capsule TK 1 C PO Q 7 DAYS 11 10/08/2018 Act ajvier hydrALAZINE (APRESOLINE) 25 MG tablet TK 1 [...] the skin Active Blood Glucose Monitoring Suppl (AFrame Digital Verio Flex System) w/Device kit USE DIRECTED [...] Comments Influenza Vaccine (#1) 2023 Care Teams Bag Shop Worker Relationship Specialty Start Date End Date Jessie Dickson MD [address] [place] [id number] PCP - General 05/31/18
--- OUTSIDE RECORDS SUMMARY | 2024-04-04 10:17 | XMS_ITS | Referral Summary ---
Author Organization [facility] Address [address] [facility] [place] [address] Care Team Providers Care Package Designer Name Role Phone Jessie Dickson CERTIFIED CREDIT COUNSELOR-PRINCIPAL ARCHAEOLOGIST Primary Care Pro vider Source Comments [facility],non-owned Affiliates and Associated Physician Practices is amultiple site organization consisting of ambulatory clinics and hospital sitesin [place], [place], [place] and [place]. This disclosure is being madepursuant to the Care Everywhere program and may not contain all information available regarding this patient. Last updated 17.[facility] Allergies Active Allergy Reactions Criticality Noted Date [...] 200 Each 11 06/09/2018 Active ergocalciferol (DRISDOL) 95820 units capsule Take 1 capsule by mouth [...] procedure) 2 tablet 01/21/2022 Active HYDROcodone-acetamino phen (Glade) 5-325 MG tablet Take 1 (one) tablet [...] Comments Blood Pressure 145/85 02/05/2022 12:20 [address]MENT RELATIONS DIRECTOR dr irizarry aware; ok to d/cv Pulse 74 02/05/2022 11:55 AM GOVERNMENT RELATIONS DIRECTOR Temperature 36.8 C (98.2 F) 09/13/2019 8:22 AM CDT Respiratory Rate 12 02/05/2022 11:5 0 AM GOVERNMENT RELATIONS DIRECTOR Oxygen Saturation 100% 02/05/2022 11: 55 AM GOVERNMENT RELATIONS DIRECTOR Inhaled Oxygen Concentration - - Weight 108.9 [...] javier Non-reac tive 05/28/2018 1:18 PM CDT [facility] Comment: Hepatitis C Antibody screen [...] Thornton MD LAB - CHEMISTRY [facility] [address] [phone] * HIV-1 HIV-2 ANTIGEN/ANTIBODY (05/24/2018 5:08 PM CDT) HIV Antigen/Antibod y 1 & 2 Non-reacti ve Non-react javier 05/24/2018 5:54 PM CDT [facility] Comment: Neither HIV-1 p24 Antigen nor HIV-1/HIV-2 Antibodies are detected. Blood BLOOD SPECIMEN / Unknown Venipuncture / Unknown 05/24/2018 5:08 PM CDT 05/24/2018 5:16 PM CDT Namita Raymond MD LAB - HEMATOLOGY ORD ERABLES [facility] [address] [phone] from Last 3 Months or Most Recently Relevant to Health Maintenance Advance Directives * Full Code (Latest Code Status on File) Date Activated Date Inactivated Comments 05/25/2018 12:57 AM 05/28/2018 5:22 PM * Full Code Date Activated Date Inactivated Comments 05/24/2018 6:24 PM 05/25/2018 12:57 AM Care Teams Package Designer Relationship Specialty Start Date End Date Jessie Dickson APRN-JANET [address] [phone] PCP - General 06/30/14
--- OUTSIDE RECORDS SUMMARY | 2024-04-04 10:17 | XMS_ITS | Data Portability ---
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 Plan of Treatment Reminders Order Date Submit Date Provider Last Modified By Organization Details Last Modified Time Details Appointments None recorded. Lab HbA1c (hemoglobin A1c), blood 2022 023 [email or web address] In-Office Order, Internal Use Only DO Not Attach Compendium DO Not Attach Compendium, Do Not Delete/merge, [id number] 3 15:31:49 glucose, fingerstick , blood 2022 023 [email or web address] In-Office Order, Internal Use Only DO Not Attach Compendium DO Not Attach Compendium, Do Not Delete/merge, [id number] 3 15:31:48 HbA1c (hemoglobin A1c), blood 2023 024 [email or web address] In-Office Order, Internal Use Only DO Not Attach Compendium DO Not Attach Compendium, Do Not Delete/merge, [id number] 4 12:47:19 glucose, fingerstick , blood 2023 024 [email or web address] In-Office Order, Internal Use Only DO Not Attach Compendium DO Not Attach Compendium, Do Not Delete/merge, [id number] 4 12:47:21 CMP, serum or plasma 2023 024 [facility], [address], [address], [place], [address], 4 23:07:49 albumin/cre atinine, mass ratio, urine 2023 024 [facility], [address], [address], [place], [address], 4 10:15:48 TSH, ultra-sensi tive, serum 2023 024 [facility], [address], [address], [place], [address], 4 10:15:48 CBC 2023 024 [facility], [address], [address], [place], [address], 4 23:07:50 lipid panel, serum 2023 024 [facility], [address], [address], [place], [address], 4 23:07:48 vitamin D, 25-hydroxy, total, serum 2023 024 [facility], [address], [address], [place], [address], 4 10:15:50 Referral neurologist referral - Head [...] 81 mg tablet,juan yed release 2022 023 [facility]armacy #2510, [address] [place], [address], 3 14:50:06 Lipitor 80 mg tablet 2022 023 [facility] #2510, [address] [place], [address], 3 14:56:45 Colace 100 mg capsule 2022 023 [facility] #2510, [address] [place], [address], 3 15:32:12 polyethylen e glycol 3350 17 gram/dose oral powder 2022 023 [facility] #2510, [address] [place], [address], 3 20:15:56 fluticasone propionate 50 mcg/actuati on nasal spray,suspe nsion 2022 023 [facility] #2510, [address] [place], [address], 3 15:32:14 montelukast 10 mg tablet 2022 023 [facility] #2510, [address] [place], [address], 3 15:32:14 Kym Allergy 180 mg tablet 2022 023 [facility] #2510, [address] [place], [address], 3 15:32:13 Lantus Solostar U-100 Insulin 100 unit/mL (3 mL) subcutaneou s pen 2022 023 [facility] [address] [place] [address], [address], 3 15:32:15 Admelog SoloStar U-100 Insulin lispro 100 unit/mL subcutaneou s pen 2022 024 [facility]2510, [address] [place] [address], [address], 4 12:43:37 fluticasone propionate 50 mcg/actuati on nasal spray,suspe nsion 2023 024 [facility] [address] [place] [address], [address], 4 12:47:15 montelukast 10 mg tablet 2023 024 [facility] [address] [place] [address], [address], 4 12:47:16 Kym Allergy 180 mg tablet 2023 024 [facility], [address] [place] [address], [address], 4 12:47:15 Colace 100 mg capsule 2023 024 [facility] #2510, [address] [place], [address], 4 12:47:15 Lantus Solostar U-100 Insulin 100 unit/mL (3 mL) subcutaneou s pen 2023 024 [facility], [address] [place] [address], [address], 4 12:47:15 OneTouch Ultra Test strips 2023 024 [facility] [address] [place], [address], 4 15:31:16 gabapentin 100 mg capsule 2023 024 [facility] [address] [place], [address], 4 12:47:15 Diflucan 150 mg tablet 2023 024 [facility] [address] [place], [address], 4 12:47:15 gabapentin 100 mg capsule 2023 024 [facility] [address] [place], [address], 20:08:16 Patient TargetsNo targets recorded. Patient Instructions Encounter Date Encounter Id Patient Instructions Last Modified By Organization Details Last Modified Time 06/11/2022 [id number] A healthy lifest yle: care instructions yarauz [...] dialysis yarauz Not available 06/11/2022 15:17:16 10/06/2022 [id number] allergies: care instructions [email or web address] Not available 10/06/2022 [...] medicine yarauz Not available 10/06/2022 15:08:09 02/03/2023 [id number] influenza (flu) vaccine: care instructions [email or web address] Not [...] diet see dentist every 6 months see newscast director every 1-2 years vaccine yarauz Not available 02/03/2023 12:29:16 2023 [id number] allergies: care instructions yarauz Not available 2023 [...] medicine yarauz Not available 2023 12:31:18 09/08/2023 [id number] A healthy lifest yle: care instructions [email or web address] Not available 09/08/2023 20:08:14 Consider use of rae, kenyon, peppermint, coriander, fennel and cayenne pepper to stimulate your appetite. Lemon helps with limited taste. Please talk to your providers about being hungry but not having desire to eat. Not available 09/08/2023 20:08:14 Reason for Referral [...] DO Not Attach Compendium, Do Not Delete/merge, [id number] 10/06/2022 14:28:33 10/07/19 23 10/06/2022 gluco se, finge rstic k, blood Blood Glucose: mg/dl 162 Not Available In-Off ice Order Internal Use Only DO Not Attach Compendium DO Not Attach Compendium, Do Not Delete/merge, [id number] 10/06/2022 14:28:35 03/12/19 24 2023 LIPID PANEL cholesterol, total 171 mg/dL 100-19 9 Not Available [facility] [address] [place], [address], 2023 23:07:48 03/12/19 24 2023 LIPID PANEL triglyceride s 78 mg/dL 0-149 Not Available [facility] Department [address] [place], [address], 2023 23:07:48 03/12/19 24 2023 LIPID PANEL HDL cholesterol 70 mg/dL 40-999 Not Available [facility] Department [address] [place], [address], 2023 23:07:48 03/12/19 24 2023 LIPID PANEL VLDL cholesterol dwayne 16 mg/dL 5-40 Not Available [facility] Department [address] [place], [address], 2023 23:07:48 03/12/19 24 2023 LIPID PANEL LDL chol calc (nih) 96 mg/dL 0-99 Not Available [facility] Department [address] [place], [address], 2023 23:07:48 03/12/19 24 2023 COMP. METAB OLIC PANEL (14) glucose 101 mg/dL 70-99 above high normal Not Available [facility] [address] [place] [address], [address], 2023 23:07:49 03/12/19 24 2023 COMP. METAB OLIC PANEL (14) BUN 46 mg/dL 6-24 above high normal Not Available [facility] [address] [place], [address], 2023 23:07:49 03/12/19 24 2023 COMP. METAB OLIC PANEL (14) creatinine 12.18 mg/dL 0.76-1 .27 panic high RESUL TS VERIF IED AND MCCLENDON D TO DR MAYRA TALLEY ON BY Jesse bazzi, CPT AT 2108 ON 03/12. Not Available [facility] [address] [place], [address], 2023 23:07:49 03/12/19 24 2023 COMP. METAB [...] tao that value . Not Available [facility] [address] [place] [address], [address], 2023 23:07:49 03/12/19 24 2023 COMP. METAB OLIC PANEL (14) BUN/creatini ne ratio 4 9-23 below low normal Not Available [facility] [address] [place], [address], 2023 23:07:49 03/12/19 24 2023 COMP. METAB OLIC PANEL (14) sodium 142 mmol/ L 134-14 4 Not Available [facility] [address] [place] [address], [address], 2023 23:07:49 03/12/19 24 2023 COMP. METAB OLIC PANEL (14) potassium 4.6 mmol/ L 3.5-5. 2 Not Available [facility] [address] [place] [address], [address], 2023 23:07:49 03/12/19 24 2023 COMP. METAB OLIC PANEL (14) chloride 102 mmol/ L 96-106 Not Available [facility] [address] [place] [address], [address], 2023 23:07:49 03/12/19 24 2023 COMP. METAB OLIC PANEL (14) carbon dioxide, total 26 mmol/ L 20-29 Not Available [facility] [address] [place] [address], [address], 2023 23:07:49 03/12/19 24 2023 COMP. METAB OLIC PANEL (14) calcium 9.6 mg/dL 8.7-10 .2 Not Available [facility] [address] [place] [address], [address], 2023 23:07:49 03/12/19 24 2023 COMP. METAB OLIC PANEL (14) protein, total 7.0 g/dL 6.0-8. 5 Not Available [facility] [address] [place] [address], [address], 2023 23:07:49 03/12/19 24 2023 COMP. METAB OLIC PANEL (14) albumin 3.7 g/dL 3.9-4. 9 below low normal Not Available [facility] [address] [place] [address], [address], 2023 23:07:49 03/12/19 24 2023 COMP. METAB OLIC PANEL (14) globulin, total 3.3 g/dL 1.5-4. 5 Not Available [facility] [address] [place] [address], [address], 2023 23:07:49 03/12/19 24 2023 COMP. METAB OLIC PANEL (14) A/G ratio 1.0 1.2-2. 2 below low normal Not Available [facility] [address] [place] [address], [address], 2023 23:07:49 03/12/19 24 2023 COMP. METAB OLIC PANEL (14) bilirubin, total 0.2 mg/dL 0.0-1. 2 Not Available [facility] [address] [place] [address], [address], 2023 23:07:49 03/12/19 24 2023 COMP. METAB OLIC PANEL (14) alkaline phosphatase 161 IU/L 44-121 above high normal Not Available [facility] [address] [place] [address], [address], 2023 23:07:49 03/12/19 24 2023 COMP. METAB OLIC PANEL (14) AST (SGOT) 17 IU/L 0-[address] [facility] [address] [place], [address], 2023 23:07:49 03/12/19 24 2023 COMP. METAB OLIC PANEL (14) ALT (SGPT) 15 IU/L 0-[address] [facility] [address] [place], [address], 2023 23:07:49 03/12/19 24 2023 CBC, NO DIFFE RENTI AL/PL ATELE T WBC 9.4 x10e3 /uL 3.4-10 .8 Not Available [facility] [address] [place], [address], 2023 23:07:50 03/12/19 24 2023 CBC, NO DIFFE RENTI AL/PL ATELE T RBC 4.11 x10e6 /uL 3.77-5 .28 Not Available [facility] [address] [place], [address], 2023 23:07:50 03/12/19 24 2023 CBC, NO DIFFE RENTI AL/PL ATELE T hemoglobin 10.9 g/dL 11.1-1 5.9 below low normal Not Available [facility] [address] [place], [address], 2023 23:07:50 03/12/19 24 2023 CBC, NO DIFFE RENTI AL/PL ATELE T hematocrit 36.5 % 34.0-4 6.6 Not Available [facility] [address] [place], [address], 2023 23:07:50 03/12/19 24 2023 CBC, NO DIFFE RENTI AL/PL ATELE T MCV 89 fL 79-97 Not Available [facility] [address] [place], [address], 2023 23:07:50 03/12/19 24 2023 CBC, NO DIFFE RENTI AL/PL ATELE T MCH 26.5 pg 26.6-3 3.0 below low normal Not Available [facility] [address] [place], [address], 2023 23:07:50 03/12/19 24 2023 CBC, NO DIFFE RENTI AL/PL ATELE T MCHC 29.9 g/dL 31.5-3 5.7 below low normal Not Available [facility] [address] [place], [address], 2023 23:07:50 03/12/19 24 2023 CBC, NO DIFFE RENTI AL/PL ATELE T RDW 13.8 % 11.5-1 4.5 Not Available [facility] [address] [place], [address], 2023 23:07:50 03/12/19 24 2023 CBC, NO DIFFE RENTI AL/PL ATELE T NRBC 0 % 0-0 Not Available [facility] [address] [place], [address], 2023 23:07:50 03/12/19 24 03/13/2023 ALBUM IN/CR EATIN INE RATIO ,URIN E creatinine, urine 104.7 mg/dL notest ab. Not Available [facility] ([facility]) [address] [facility], [place], [address], 03/13/2023 10:15:47 03/12/19 24 03/13/2023 ALBUM IN/CR EATIN INE RATIO ,URIN E albumin, urine 511.4 ug/mL notest ab. Resul ts confi rmed on dilut ion. Not Available [facility] ([facility]) [address] [facility], [place], [address], 03/13/2023 10:15:47 03/12/19 24 03/13/2023 ALBUM IN/CR EATIN INE RATIO ,URIN E alb/creat ratio 488 mg/g_ creat 0-29 above high normal Kimberly l: 0 - 29 Moder ately incre ased: 30 - 300 Sever naima incre ased: >300 Not Available [facility] ([facility]) [address] [facility], [place], [address], 03/13/2023 10:15:47 03/12/19 24 03/13/2023 TSH RFX ON ABNOR MAL TO FREE T4 TSH 2.130 uIU/m L 0.450- 4.500 Not Available [facility] ([facility]) [address] [facility], [place], [address], 03/13/2023 10:15:48 03/12/19 24 03/13/2023 VITAM IN [...] and D. Leobardo karimi [place]: [facility] Press . 2. Jarrett boswell MF, Hailee burgess [place], Alma Delia off-F errar i BAUMANN, et al. Evalu ation , treat ment, and preve ntion of vitam in D defic iency : an Endoc rine Socie ty clini dwayne pract ice guide line. JCEM. 2010; 96(7) :1911 -30. Not Available [facility] ([facility]) [address], [place], [address], 03/13/2023 10:15:49 03/12/19 24 2023 HbA1c (hemo globi n A1c), blood HbA1c 6.4 Not Available In-Office Order Internal Use Only DO Not Attach Compendium DO Not Attach Compendium, Do Not Delete/merge, [id number] 2023 11:51:02 03/12/19 24 2023 gluco se, finge rstic k, blood Blood Glucose: mg/dl 178 Not Available In-Off ice Order Internal Use Only DO Not Attach Compendium DO Not Attach Compendium, Do Not Delete/merge, [id number] 2023 11:51:04 06/16/19 23 06/15/2022 XR, abdom en No observ ation record ed. [address] [facility], [place], [address], 10/06/2022 15:11:10 06/16/19 23 06/14/2022 CT, abdom en + pelvi s, w/o contr ast No observ ation record ed. [address], [place], [address], 10/06/2022 15:11:10 11/02/19 23 11/01/2022 XR, chest , 1 view No observ ation record ed. [address], [place], [address], 11/05/2022 17:56:22 01/10/20 23 12/25/2022 MRI, abdom en + pelvi s, w/wo contr ast No observ ation record ed. [facility] - Gynecologic Oncology [address] [place] [address], [address], 01/12/2023 10:36:39 03/19/19 24 03/17/2023 MAMMO , scree lexx, bilat eral No observ ation record ed. [facility] Department [address], [place], [address], 03/24/2023 14:16:33 06/19/1906/19/2023 US, suyapale x, arter ial, upper extre mity No observ ation record ed. [facility] [address], [place], [address], 07/02/2023 11:53:57 Result Notes None recorded. Problems Name Problem SNOMED Code Status Onset Date Resolution Date Notes Provider Name and Address Organization Details Recorded Time Hyperten sive disorder 44559216 Active 2018 Giselle rem[place], [place] [facility] 10:42:15 Chronic kidney disease stage 3 765370622 Completed 201804/18/2021 follows with Ivonne Marte at [facility] Danica Alvarez RN [place], [place] [facility] 2 12:05:25 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 102471126 Active 2021 Giselle rem[place] [facility] 2 10:41:58 Vitamin D deficien cy 03987379 Active 2021 Giselle rem[place] [facility] 2 10:42:32 Family history of malignan t neoplasm of breast in first degree relative 101538844 Active 2021 KRISTY Topete- Attn: Kerry galarza,[address] [facility], [place], [address], [place] [facility] 2 11:34:39 Cyst of left ovary 57900627432 287785 Active 2021 Giselle [place] [facility] 2 10:45:06 Morbid obesity 579524217 Active 2021 DENNY Ch[place] [facility] 2 10:42:28 Pelvic mass 88558606 Active 2021 KRISTY Topete-BC Attn: Accountin g,[address] [facility], [place], [address], [place] [facility] 2 11:34:39 Gastroes ophageal reflux disease 704941120 Active 2020 Giselle Betakarlyour t, [place] [facility] 10:42:49 Irritabl e bowel syndrome 69074213 Active 2020 Giselle Betancour t, [place] [facility] 2 10:44:10 Chronic constipa tion 463334362 Active 2021 Giselle Betancour t, [place] [facility] 2 10:42:07 History of optic neuritis 66380880417 533910 Active 2021 Giselle Betancour t, [place] [facility] 2 10:44:00 Bereavem ent 93233820 Active 2021 Jessie Crockett [facility] Attn: Kerry g,[address] [facility], [place], [address], [place] [facility] 2 12:54:36 Body mass index 30+ - obesity 694709745 Active 2021 Danica Al[place] [facility] 3 14:27:16 History of cerebrov ascular accident 279973594 Active 2022 [facility] Attn: Accountin g,[address] [facility], [place], [address], [place] [facility] 3 15:13:27 Mass of right breast 03741803204 291582 Active 2022 Jessie Crockett [facility] Attn: Accountin g,[address] [facility], [place], [address], [place] [facility] 3 12:28:12 Obesity 081254238 Active 2023 Jessie Crockett [facility] Attn: Accountin michell,[address] [facility], [place], [address], [place] [facility] 4 12:29:07 Anterior knee pain 422812490 Completed 07/09/2017 Danica [place] [facility] 16:14:18 Uncontro lled type 2 diabetes mellitus 017548186 Active Giselle rem[place] [facility] 2 10:42:39 Painful mouth 517424667 Completed 11/22/2014 Giselle [place] t [place] [facility] 6 10:27:39 Knee pain Completed 07/09/2018 Danica Al[place] [facility] 9 11:36:54 Right upper quadrant pain 940670209 Completed 07/09/2017 Danica [place] [facility] 16:17:24 Epigastr ic pain 40114659 Completed 07/09/2017 Dan[place] [facility] 16:18:28 Heartbur n 25129501 Completed 07/09/2017 Danica [place] [facility] 16:13:45 Flatulen t dyspepsi a 596949782 Completed 07/09/2017 Dan[place] [facility] 16:17:14 Diabetes mellitus 77756649 Completed 11/22/2014 Giselle [place] t [place] [facility] 6 10:27:39 Helicoba cter detected in blood 570741052 Completed 07/09/2017 Dan[place] [facility] 16:13:50 Acute peptic ulcer 100601807 Completed 07/09/2017 Dan[place] [facility] 16:13:58 Patellof emoral osteoart hritis 998624182 Active Giselle rem[place] [facility] 2 10:44:24 Infestat ion by Sarcopte s scabiei ernesto hominis 287017160 Completed 11/22/2014 Dan[place] [facility] 16:13:39 Thigh pain 69479029 Completed 07/09/2017 Dan[place] [facility] 16:18:22 Diabetic peripher al neuropat hy 862554255 Active Giselle rem[place] [facility] 2 10:43:41 Infestat ion by Sarcopte s scabiei ernesto hominis 992653661 Completed 07/09/2017 Dan[place] [facility] 16:13:39 Osteoart hritis of knee 424920756 Active Giselle rem[place] [facility] 2 10:44:14 Bronchit is 50307000 Completed 07/09/2017 Dan[place] [facility] [place] 16:17:39 Acute bronchit is 86601479 Completed 07/09/2017 Dan[place] [facility] 16:13:34 Allergic rhinitis 74329484 Active Giselle rem[place] [facility] 2 10:42:02 Eruption 855226779 Completed 07/09/2017 Dan[place] [facility] 16:17:18 Otitis media 58620044 Completed 201607/09/2017 Dan[place] [facility] 16:18:08 Acute conjunct ivitis 08687990 Completed 201607/09/2017 Dan[place] [facility] 16:17:46 Acute laryngit is 5539308 Completed 201607/09/2017 Dan[place] [facility] 16:18:18 Problem Notes None recorded. Procedures Surgical History Date Name Laterality Status Provider Name and Address Organization Details Recorded Time 06/05/19 Date of Last Mammogram completed Danica Alvarez RN [facility] 10/06/2022 14:29:46 03/21/19 22 Date of Last Pap Smear completed Danica Alvarez RN [facility] 10/06/2022 14:43:25 03/14/19 22 oophorectomy completed JOHN Topete Attn: Accounting,[address], [place], [address], [facility] 03/21/2021 14:05:13 03/14/19 22 laparoscopic insertion of peritoneal dialysis catheter completed JOHN Topete Attn: Accounting,[address], [place], [address], [facility] 03/21/2021 14:03:20 03/20/19 16 Joint Injection completed Tomer Boles MD [address], [place], [address], [facility] 03/20/2015 11:44:06 12/20/19 15 Joint Injection completed Tomer Boles MD [address], [place], [address], [facility] 12/19/2014 12:04:38 02/23/18 95 Caesarean Section completed Danica Alvarez RN [facility] 06/07/2014 16:13:25 02/23/18 94 Caesarean Section completed Danica Alvarez RN [facility] 06/07/2014 16:13:25 02/23/18 92 Caesarean Section completed Danica Alvarez RN [facility] 06/07/2014 16:13:25 Imaging Results Imaging Date Name Status LastModified by Organ ation Details LastModified Time 06/15/2022 XR, abdomen completed [address] [place] [address], [address], 10/06/2022 15:11:10 06/14/2022 CT, abdomen + pelvis, w/o contrast completed [address] [place] [address], [address], 10/06/2022 15:11:10 11/01/2022 XR, chest, 1 view completed [facility] [address] [facility] [address], [place], [address], 11/05/2022 17:56:22 12/25/2022 MRI, abdomen + pelvis, w/wo contrast completed [facility] [address] [place], [address], 01/12/2023 10:36:39 03/17/2023 MAMMO, screening, bilateral completed [facility] Department [address], [place], [address], 03/24/2023 14:16:33 06/19/2023 US, duplex, arterial, upper extremity completed [facility] [address] [facility] [address], [place], [address], 07/02/2023 11:53:57 Procedure Notes None recorded. Medical Equipment None Reported. Allergies Allergen ID Allergen Name Allergen Category Reaction Reaction Severity Criticality Documentation Date Start Date Code Code System Note Provider Name and Address Organization Details Recorded Time 90196 Flagyl medicatio n hives Not available Not available 07/06/201452452 6 RxNorm Not Available Not Available Not Available 28884 omeprazol e medicatio n rash Not available [...] e 50 mcg/actua tion nasal spray,fernando pension Sarah Ann 1 spray twice a day by intranas [...] Updated DateTime 3 160.02 cm 36.3 kg/m2 84619.4 4 g 99 % 99 % 86 /min 98.1 [degF] 140 mm[Hg] 90 mm[Hg] Giselle remy [place] [facility] 14:15:58 Date Recorded Body height Body mass index (BMI) Body weight Heart rate Body temperature Systolic blood pressure Diastolic blood pressure Provider Name and Address Organization Details Last Updated DateTime 3 160.02 cm 33.5 kg/m2 11907.9 6 g 80 /min 97.9 [degF] 120 mm[Hg] 74 mm[Hg] Danica Alvarez RN [facility] 3 14:52:55 Date Recorded Body height Body mass index (BMI) Body weight Body temperature Oxygen saturation Oxygen saturation in Arterial blood by Pulse oximetry Heart rate Systolic blood pressure Diastolic blood pressure Provider Name and Address Organization Details Last Updated DateTime 3 160.02 cm 32.1 kg/m2 87192.6 2 g 98.5 [degF] 98 % 98 % 74 /min 122 mm[Hg] 70 mm[Hg] Giselle remy MA [facility] 3 11:37:24 Date Recorded Body height Oxygen saturation Oxygen saturation in Arterial blood by Pulse oximetry Heart rate Body temperature Body mass index (BMI) Body weight Systolic blood pressure Diastolic blood pressure Provider Name and Address Organization Details Last Updated DateTime 4 160.02 cm 100 % 100 % 68 /min 98.1 [degF] 32.6 kg/m2 30228.4 g 140 mm[Hg] 90 mm[Hg] Giselle remy MA [facility] 4 11:59:24 Date Recorded Body height Body mass index (BMI) Body weight Oxygen saturation Oxygen saturation in Arterial blood by Pulse oximetry Heart rate Respiratory rate Body temperature Systolic blood pressure Diastolic blood pressure Provider Name and Address Organization Details Last Updated DateTime 4 160.02 cm 32.1 kg/m2 57373.2 2 g 100 % 100 % 68 /min 16 /min 98.1 [degF] 184 mm[Hg] 90 mm[Hg] Asad Mcfarlane MA [facility] 4 19:40:59 Social History Question Answer Notes LastModified by Organizat ion Details LastModified Time Tobacco Smoking Status Never Smoker Danica Alvarez RN [facility], [facility] 06/07/2014 16:13:25 Do You Have An Advance [...] t available 06/07/2014 What Is Your Occupation? [employer] Information not available 06/07/2014 Are There Any [...] Anxious, Or Unable To Sleep At Night)? [id number] Information not available 03/21/2021 Do You Use [...] pneumococcal polysaccharide PPV23 8 completed Not Available [facility] 02:45:24 Tdap 8 completed Not Available [facility] 2019 02:35:23 Pneumococcal conjugate PCV 13 2 completed Danica Al[place], [place] [facility] 04/19/2021 09:45:40 Hep B, adult 2 completed Danica [place] [facility] 04/19/2021 09:44:41 Influenza, split virus, quadrivalent, preservative 2 completed Alnozo Reynolds MD Attn: Accounting,[address] [place], [place], [address] [place] [address], [place] [facility] 12/30/2021 15:50:00 Hep B, adult 3 completed JOHN Topete Attn: Accounting,[address] [place], [place], [address] [place] [address], [place] [facility] 10/07/2022 09:34:18 Influenza, split virus, quadrivalent, preservative 3 completed Cordelia Alexander [place], [place] [facility] 02/03/2023 13:00:18 Hep B, adult 4 completed JOHN Topete Attn: Accounting,[address] [place], [place], [address] [place] [address], [place] [facility] 2023 15:26:13 Pneumococcal conjugate PCV20, polysaccharide AIV509 conjugate, adjuvant, PF 4 completed JOHN Topete Attn: Accounting,[address] , [place], [address], [facility] 2023 15:26:13 Past Encounters Encounter ID Performer Location Encounter Start Date Encounter Closed Date Diagnosis/Indication Diagnosis SNOMED-CT Code Diagnosis ICD10 Code Diagnosis Note [id number] Danica Alvarez RN [facility] [address] [place] [address] 06/07/2014 15:52:20 06/08/2014 15:51:04 Anterior knee pain [id number] 06/04/2014 left knee xray=moder ate joint effusion otherwise normal 05/05/2014 left knee xray=joint effusion otherwise normal 11/24/2013 left knee xray=kimberly l the patient has not gone to PT which was ordered back in 10/2013 as something came up advised weight loss stressed to take Gabapentin 300mg tid daily not prn Uncontroll ed type 2 diabetes mellitus [id number] the patient follows with Dr. Catherine Gaytan Endocrinol ogy at [place]. The patient is non compliant with treatment and management of DM2 [id number] Danica Alvarez RN [address] [address] 06/20/2014 17:46:17 06/21/2014 09:46:05 Painful mouth 501374790 antibiotic s and follow up Knee pain 15297850 sees ortho August 15... pain meds and follow up [id number] Danica Alvarez RN [facility] [address] [place] [address] 07/06/2014 12:15:55 07/11/2014 13:25:20 Right upper quadrant pain [id number] 06/29/2014 CT of ABD/PELVIS showed a contracted Gallbladde r 07/03/2014 GB u/S = NORMAL Completed 1 week of daily Omeprazole BRAT diet avoid spicy foods or anything aggravatin g Epigastric pain 75908543 Heartburn 97545240 Flatulent dyspepsia 983000732 Diabetes mellitus 75121070 Patient follows up with ENDOCRINYADIRA BARRIOS AT [facility] for this problem--s he is to continue to follow up with that office for this medical problem. [id number] [facility] [address] [place] [address] 07/19/2014 16:17:50 07/21/2014 16:53:41 Knee pain 15923669 see orthopedic s stop Ibuprofen for now will give some Tramadol for pain until seen by Ortho Continue PT Patient to discuss Rx for brace with Ortho Acute peptic ulcer 645629005 complete Triple therapy keep apt with GI Avoid aggravatin g foods [id number] [facility] [address] [place] [address] 08/15/2014 09:14:17 08/16/2014 12:02:00 Patellofemoral osteoarthritis 493923751 [id number] Danica Alvarez RN [facility] [address], [place] [address] 10/02/2014 13:49:33 10/09/2014 12:46:07 Infestation by Sarcoptes scabiei ernesto hominis [id number] Rigoeleonora Rose Marie [facility] [address], [place] [address] 11/22/2014 12:15:53 11/23/2014 17:10:01 Thigh pain 33114848 Increase Gabapentin 600mg bid to tid Keep blood sugars in the low 100's weight loss, exercise diabetic neuropathy informatio n discussed and handout given Knee pain 76304356 see orthopedic s--as patient voices difficulty in getting an appointmen t RN has helped to get appt. and patient is now scheduled for 12/19/2014 --keep appointmen t weight loss/ROM exercises at home Use brace as directed Diabetic p eripheral neuropathy 924707347 Uncontroll ed type 2 diabetes mellitus 149128914 the patient follows with Dr. Catherine Gaytan Endocrinol ogy at [place]. The patient is non compliant with treatment [...] t and/or take with endocrinol ogist at [facility] prn [id number] Tomer Boles MD [facility] [address] [place] [address] 12/19/2014 10:37:52 12/19/2014 16:01:48 Knee pain 24215245 M25.569 Patellofem oral osteoarthritis 343412853 M17.9 Infestatio n by Sarcoptes scabiei ernesto hominis 247182930 B86 [id number] Sonam La [facility] [address] [place] [address] 03/20/2015 09:57:27 03/20/2015 13:54:02 Osteoarthritis of knee 832124362 M17.9 Anterior knee pain 51244 3006 M25.569 [id number] Jessie Crockett [facility] [address], [place] [address] 06/07/2015 10:25:17 06/11/2015 17:59:47 Adult health examination 131159227 Z00.01 Acute bronchitis 6364532 2 J20.9 Allergic rhinitis 669971 04 J30.9 Uncontroll ed type 2 diabetes mellitus 718473432 E11.65 the patient follows with Dr. Catherine Gaytan Endocrinol ogy at [place]. The patient reports she is now compliant [...] fos fasting labs which she will get [facility] Medication monitoring 39 0726444 Z51.81 Patient was started on B/P medicine Lisinopril 5mg once daily per Endo Tessie black, [employer] on 04/10/2015= =she was given 11 RF and still using first bottle [id number] Carmelo Shore PA-C [address] [address] 05/31/2015 17:04:34 06/16/2015 13:13:12 Bronchitis 86556829 J40 [id number] Yana Jamari [address] [address] 08/17/2015 18:18:44 08/21/2015 03:47:53 Eruption 213856753 R21 [id number] Carmelo Shore PA-C [facility] [address] [place] [address] 04/24/2016 17:43:51 04/25/2016 17:15:56 Otitis media 84233192 H66.91 Acute conjunctivitis 537 24800 H10.31 Acute laryngitis 1859817 J04.0 viral [id number] [facility] [address], [place] [address] 07/09/2017 15:52:35 07/10/2017 10:25:39 Gynecologic examination 48265261 Z01.411 Self breast exam calcium rich foods handout vitamin D 2000 iu daily exercise weight loss diet Administra tion of pneumococcal vaccine 61862736 Z23 Administra tion of diphtheria, pertussis, and tetanus vaccine 861865817 Z23 Morbid obesity 807294220 E66.01 Cyst of left ovary 59928 21426 3584591 N83.202 Uncontroll ed type 2 diabetes mellitus 039484474 E11.65 the patient follows with Dr. Catherine Gaytan Endocrinol ogy at [place]. The patient reports she is now compliant with treatment and management of DM2 2/2 to issues with her medication s not covered by insurance per patient report discussed ramificati ons of uncontroll ed DM and neuropathy symptoms patient is to call follow up with Endocrinol ogist for management of this problem Family his tory of malignant neoplasm of breast in first degree relative 607966794 Z80.3 Patient refuses referral for genetic testing [id number] Jessie Crockett [facility] [address], [place] [address] 09/23/2017 12:32:53 09/30/2017 18:12:11 Vaginitis 62853252 N76.0 Candidal vulvovaginitis 94923404 B37.3 [id number] Jessie Crockett [facility] [address], [place] [address] 07/09/2018 11:53:24 07/12/2018 10:40:14 Gynecologic examination 74464761 Z01.411 Self breast exam calcium rich foods handout vitamin D 2000 iu daily exercise weight loss diet Last pap 07/09/2017 normal due in 2020 Morbid obesity 192461722 E66.01 40.7 bmi Cyst of left ovary 94945 76676 4638283 N83.202 Uncontroll ed type 2 diabetes mellitus 364190621 E11.65 g the patient follows with Dr. Catherine Gaytan Endocrinol ogy at [place]. The patient reports she is now compliant [...] neoplasm of breast in first degree relative 021405041 Z80.3 Patient's mother had breast cancer at 40 y/o Screening for malignant neoplasm of breast 830912455 Z12.31 Patient's mother had breast cancer at 40 y/o Adjustment disorder with depressed mood 34543405 F43.21 psychother apist list [id number] [facility] [address], [place] [address] 03/21/2021 11:24:25 03/22/2021 06:47:39 Gynecologic examination 54110715 Z01.411 Self breast exam calcium rich foods handout vitamin D 2000 iu daily exercise weight loss diet Last pap 07/09/2017 normal Morbid obesity 286650720 E66.01 39.4 bmi Cyst of left ovary 47505 81697 4956259 N83.202 Uncontroll ed type 2 diabetes mellitus 820468174 E11.65 the patient is currently not following with anyone for this problem the [facility] LantusHydr alazine 100mg bidLisinop ril 20mg daily Family his tory of malignant neoplasm of breast in first degree relative 471357683 Z80.3 Patient's mother had breast cancer at 40 y/oPATIENT WAS REFERRED TO COUNSELING BUT THE PATIENT DID NOT FOLLOW THRU Screening for malignant neoplasm of breast 782311476 Z12.31 Patient's mother had breast cancer at 40 y/o Adjustment disorder with depressed mood 67780913 F43.21 psychother apist list Hypertensive disorder 38 540492 I10 BP Goal: {{Less than 140/90 Les [...] 9 10 11 12} }{{week(s) month(s)* }} [id number] Jessie Crockett, [facility] [address] [address] 04/18/2021 11:33:48 04/19/2021 07:52:01 Uncontrolled type 2 diabetes mellitus 004070982 E11.65 HA1C 6.1random accucheck 183the patient is currently not following with anyone for this problem she had been getting meds during ER visits-she had hospitaliz ation at [place] 01/20/2021 found to be in ARF-starte d [...] ki dney disease stage 5 on dialysis 843995482 Z99.2 continue [place] [facility] [place] Morbid obesity 311427241 E66.01 40.8 bmiHealthy Weight: {{4'10= 91-118 lbs [...] lbs 6'4= 156-204 lbs}} Hypertensive disorder 38 273310 I10 BP Goal: {{Less than 140/90* Le [...] }}[facility] 108335121 Z00.01 Pelvic mass 18998490 R19 .00 L adnexal mass seen on pelvic u/s on 04/18/2021L arge cystic mass of the left adnexal region measuring at least 11.8 cm.This is indetermin ate for malignancy and not well characteri zed sonographi aaron.Furt her evaluation is recommende d with either CT or MRI with and withoutcon trast.Will send for MRI Anemia in chronic kidney disease 499015580 D63.1 Chronic constipation 236 872105 K59.09 Takes BisacodylT akes stool softener History of optic neuritis 9374547346 4918976 Z86.69 2020seen opth 2020 [id number] Cordelia Alexander [facility] [address] [place] [address] 05/10/2021 09:59:12 05/13/2021 07:13:40 Uncontrolled type 2 diabetes mellitus 449873457 E11.65 HA1C 6.1random accucheck 183the patient is currently not following with anyone for this problem she had been getting meds during ER visits-she had hospitaliz ation at [place] 01/20/2021 found to be in ARF-starte d on dialysissh e presents today to establish care at this centerthe patient now on dialysis with [facility] in [facility] le will be transition ing to self dialysis-s he is interested in renal transplant currently using Lantus 8 units at HSHydralaz ine 100mg bidLisinop ril 20mg dailylabet olol 200mg BID Anemia in chronic kidney disease 763993453 D63.1 [id number] Jessie Crockett [facility] [address] [place] [address] 07/04/2021 11:05:56 07/05/2021 10:25:01 Allergic rhinitis 42698671 J30.9 otc zyrtec samples Uncontroll ed type 2 diabetes mellitus 183197015 E11.65 Today HA1C 8.1random accucheck 245the patient is currently not following with anyone for this problem she had been getting meds during ER visits-she had hospitaliz ation at [place] 01/20/2021 found to be in ARF-starte d on dialysissh e presented [facility] [place] has transition ed to self dialysis-s he is interested in renal transplant -has consulted at [facility] using Lantus 8 units at HS-BS at home 111-160Hyd ralazine 100mg bidLisinop ril 20mg dailylabet olol 200mg BIDShe will see Dr/nephrol ogist today and may have med adjustment Hypertensive disorder 38 868384 I10 BP Goal: {{Less than 140/90* Le [...] has refill of her meds from nephrologi [facility] ki dney disease stage 5 on dialysis 956949040 Z99.2 continue to [place] [facility] [place] Diabetic p eripheral neuropathy 604727698 E11.40 stable Gastroesop hageal reflux disease 849356972 K21.9 stable for now Morbid obesity 326520445 E66.01 40.8 bmiHealthy Weight: {{4'10= 91-118 lbs [...] lbs 6'4= 156-204 lbs}} Depression screening 171 265164 Z13.31 PHQ2-9 mild depression -patients 20 y/o daughter unexpected ly a couple of weeks agoPatient reports having difficulty sleeping Depressive disorder 3548 9007 F32.A 07/04/2021 PHQ2-9 09/18Agrees to start Rx escitalopr am Chronic constipation 236 310022 K59.09 Takes BisacodylT akes stool softener Bereavement 35332537 Z63 .4 recommend psychother apist-seek appointmen t [id number] Jessie Crockett [facility] [address], [place] [address] 08/15/2021 11:09:34 08/16/2021 15:00:04 Acute sinusitis 67176466 J01.90 Morbid obesity 475691578 E66.01 41.2 bmiHealthy Weight: {{4'10= 91-118 lbs 4'11= 94-123 lbs 5'= 97-127 lbs 5'1= 100-131 lbs 5'2= 104-135 5' 3= 107-140 lbs* 5'4= 110-144 lbs 5'5= 115-149 lbs 5'6= 118-154 lbs 5'7= 121-158 lbs 5'8= 125-163 lbs 5'9= 128-168 lbs 5'10= 132-173 lbs 5'11= 136-178 lbs 6'= 140-183 lbs 6'1= 144-188 lbs 6'2= 148-193 lbs 6'3= 152-199 lbs 6'4= 156-204 lbs}} Bereavement 74978866 Z63 .4 recommend psychother apist-seek appointmen t Depressive disorder 3548 9007 F32.A 08/15/2021 PHQ2-9 0wishes not to take Rx escitalopr twan cope on her owndenies suicide ideationre commend seek psychother demetrio/eladio t group Acute conjunctivitis 537 66380 H10.13 [id number] Jessie Crockett, [facility] [address] [place] [address] 11/04/2021 11:15:18 11/05/2021 11:07:40 Uncontrolled type 2 diabetes mellitus 994413686 E11.65 Today HA1C 10.1random accucheck4 12BS 150-260 range just with Lantus 8 units-has not been using Lispro insulin for a whilethe patient is currently not following with anyone for this problem she had been getting meds during ER visits-she had hospitaliz ation at [place] 01/20/2021 found to be in ARF-starte d on dialysissh e presented here on [facility] in [facility] le has transition ed to self dialysis-s he is interested in renal transplant -has consulted at [facility] using Lantus 8 units at HS-BS at home 111-160Hyd ralazine 100mg bidLisinop ril 20mg dailylabet olol 300mg BID Allergic rhinitis 659701 04 J30.9 otc zyrtec samples Hypertensive disorder 38 362065 I10 BP Goal: {{Less than 140/90* Le [...] 11 12} }{{week(s) month(s)* }}[facility] 5 [facility] 804328339 Z99.2 continue to [place] [facility] [place], [place] Diabetic p eripheral neuropathy 219094546 E11.40 stable Gastroesop hageal reflux disease 715521208 K21.9 stable for now Morbid obesity 983855356 E66.01 37.8 bmiHealthy Weight: {{4'10= 91-118 lbs 4'11= 94-123 lbs 5'= 97-127 lbs 5'1= 100-131 lbs 5'2= 104-135 5' 3= 107-140 lbs* 5'4= 110-144 lbs 5'5= 115-149 lbs 5'6= 118-154 lbs 5'7= 121-158 lbs 5'8= 125-163 lbs 5'9= 128-168 lbs 5'10= 132-173 lbs 5'11= 136-178 lbs 6'= 140-183 lbs 6'1= 144-188 lbs 6'2= 148-193 lbs 6'3= 152-199 lbs 6'4= 156-204 lbs}} Bereavement 32763076 Z63 .4 recommend psychother apist-seek appointmen t Depression screening 171 705192 Z13.31 PHQ2-9 wnl now Chronic constipation 236 976680 K59.09 Takes Bisacody akes stool softener Cyst of left ovary 57429 80775 3634901 N83.202 Patient has had cyst since 2018Patien t has been referred to [facility] for this problem back in 2018 and again in 2Transp lant team needs a [facility] note clearing for kidney transplant Has not seen [facility] yet-appoin tment scheduled for later in the month [id number] Alonzo Reynolds MD [facility] [address] [place] [address] 12/27/2021 10:28:17 12/30/2021 12:57:50 Mass of right breast 6721465742 8406449 N63.10 movable soft mass 1.5cm (2) area below R nipple Body mass index 30+ - obesity 762432529 Z68.36 BMI 36.9Ht 5' 3 Healthy weight range 95-130 Depression screening 171 686221 Z13.31 PHQ2-9 wnl Mental hea lth screening 114641072 Z13.39 HAYLEY-7 negative Administra tion of influenza vaccine 19363278 Z23 [id number] [facility]ISHA [facility] [address] [place] [address] 01/31/2022 11:30:16 02/03/2022 13:44:44 Family history of malignant neoplasm of breast in first degree relative 629956809 Z80.3 Patient's mother had breast cancer at 40 y/oPATIENT WAS REFERRED TO COUNSELING BUT THE PATIENT DID NOT FOLLOW THRU1 PATIENT WANTS TO GO TO [facility] Mass of right breast 141 2106704 5430340 N63.10 movable soft mass 1.5cm (2) area below R nipple Body mass index 30+ - obesity 095232255 Z68.36 BMI 36.Ht 5' 3 Healthy weight range 95-130 Depression screening 171 304750 Z13.31 PHQ2-9 mild depression Mental hea lth screening 303999976 Z13.39 HAYLEY-7 negative Hypertensive disorder 38 637903 I10 BP Goal: {{Less than 140/90* Le [...] 12} }{{week(s) month(s)* }}Gets meds from Nephrologi [id number] Jessie Crockett [facility] [address] [place] [address] 03/05/2022 11:39:06 2022 12:49:43 Uncontrolled type 2 diabetes mellitus 246259801 E11.65 Today HA1C 9.6random accucheck 225BS 150-260 range just with Lantus 8 units-has not been using Lispro insulin for a whilethe patient is currently not following with anyone for this problem she had been getting meds during ER visits-she had hospitaliz ation at [place] 01/20/2021 found to be in ARF-starte d on dialysissh e presented here on [facility] with [facility] in [facility] le has transition ed to self dialysis-s he is interested in renal transplant -has consulted at [facility] using Lantus 10 units at -BS at home 69-160Hydr alazine 100mg bidLisinop ril 20mg dailylabet olol 300mg BID Hypertensive disorder 38 067540 I10 BP Goal: {{Less than 140/90* Le [...] 11 12} }{{week(s) month(s)* }}[facility] stage 5 on dialysis 890568404 Z99.2 continue to follow [place] with [facility] [place], [place] Body mass index 30+ - obesity 070925260 Z68.36 BMI 36.Ht 5' 3 Healthy weight range 95-130 Allergic rhinitis 726076 04 J30.9 otc zyrtec Diabetic p eripheral neuropathy 242040396 E11.40 stable Gastroesop hageal reflux disease 528206261 K21.9 stable for now Morbid obesity 840805902 E66.01 36 bmiHealthy Weight: {{4'10= 91-118 lbs [...] 6'4= 156-204 lbs}} Cyst of left ovary 01038 38434 6053488 N83.202 Patient has had cyst since 2018Patien t has been referred to [facility] for this problem back in 2018 and again in 2021Transp lant team needs a [facility] note clearing for kidney transplant Has not seen [facility] yet-appoin tment scheduled for later in the month Chronic constipation 236 131294 K59.09 Takes BisacodylT akes stool softener Depression screening 171 572351 Z13.31 PHQ2-9 negative Mental hea lt screening 417808122 Z13.39 HAYLEY-7 negative Nasal congestion 6689783 0 R09.81 Acute laryngitis 7477344 J04.0 Exposure to scabies 1626 319309 5054138 Z20.7 Pruritic rash 65579595 L 28.2 [id number] Jessie Crockett [facility] [address] [place] [address] 06/11/2022 14:01:33 06/12/2022 14:47:11 Body mass index 30+ - obesity 618474924 Z68.36 BMI 36.3Ht 5' 3 Healthy weight range 95-130 Obesity 912186986 E66.9 BMI 36.3Ht 5' 3 Healthy weight range 95-130 Follow-up visit 55969482 9 Z09 42 y/o AAF presents for follow up ER visit on 05/03/2022 to [facility] for severe headache. The patient [...] to see neurology. History of cerebrovascular accident 173305320 Z86.73 05/03/[address] showed small region of decreased attenuatio n at left occipital lobe suspicious for relatively recent, potentiall y acute infarct which is new since 01/06/2022 . Hypertensive disorder 38 671104 I10 BP Goal: {{Less than 140/90* Le [...] Hydralazin e 100mg bid Depression screening 171 911564 Z13.31 PHQ2-9 negative Mental hea [facility] screening 358612025 Z13.39 HAYLEY-7 negative [id number] Jessie Crockett, [facility] [address] [place] [address] 10/06/2022 14:16:18 10/07/2022 11:43:28 Hypertensive disorder 13176813 I10 BP Goal: {{Less than 140/90* Le [...] bid Uncontroll ed type 2 diabetes mellitus 374143989 E11.65 Today HA1C 8random accucheck 225BS 150-260 range just with Lantus 8 units-has not been using Lispro insulin for a whilethe patient is currently not following with anyone for this problem she had been getting meds during ER visits-she had hospitaliz ation at [place] 01/20/2021 found to be in ARF-starte d on dialysissh e presented here on [facility] [place] has transition ed to self dialysis-s he is interested in renal transplant -has consulted at [place] and is on waiting listcurren tly using Lantus 10 units at -BS at home 69-160Pati ent will start using Lispro insulin 5 units bid she has not been using secondary to low sugars and afraidPati ent is taking Labetalol 300mg bidHydrala zine 100mg bidLisinop ril 20mg daily Morbid obesity 196162267 E66.01 33.5 BMIHealthy Weight: {{4'10= 91-118 lbs 4'11= 94-123 lbs 5'= 97-127 lbs 5'1= 100-131 lbs 5'2= 104-135 5' 3= 107-140 lbs* 5'4= 110-144 lbs 5'5= 115-149 lbs 5'6= 118-154 lbs 5'7= 121-158 lbs 5'8= 125-163 lbs 5'9= 128-168 lbs 5'10= 132-173 lbs 5'11= 136-178 lbs 6'= 140-183 lbs 6'1= 144-188 lbs 6'2= 148-193 lbs 6'3= 152-199 lbs 6'4= 156-204 lbs}} Allergic rhinitis 380137 04 J30.9 otc zyrtec Gastroesop hageal reflux disease 365071900 K21.9 stable for now Obesity 736909783 E66.9 BMI 33.5Ht 5' 3 Healthy weight range 95-130 Chronic ki dney disease stage 5 on dialysis 507106942 Z99.2 continue to follow up with [facility] [place], [place] Body mass index 30+ - obesity 192377995 Z68.36 BMI 33.5Ht 5' 3 Healthy weight range 95-130 Diabetic p eripheral neuropathy 330053105 E11.40 stable Cyst of left ovary 72510 85740 7976381 N83.202 Patient has had cyst since 2018Patien t has been referred to [facility] for this problem back in 2018 and again in 2021Transp lant team needs a [facility] note clearing for kidney transplant Has not seen [facility] yet-appoin tment scheduled for later Chronic constipation 236 932874 K59.09 Takes BisacodylT akes stool softener Nasal congestion 9321521 0 R09.81 Depression screening 171 557605 Z13.31 PHQ2-9 negative Mental hea lth screening 065972696 Z13.39 HAYLEY-7 negative Requires c ourse of hepatitis B vaccination 723276540 Z28.39 [id number] Jessie Crockett [facility] [address], [place] [address] 02/03/2023 11:22:33 02/04/2023 11:52:11 Body mass index 30+ - obesity 224968437 Z68.36 BMI 32.1Ht 5' 3 Healthy weight range 95-130 Depression screening 171 247797 Z13.31 PHQ2-9 wnl Mental [facility] screening 166328654 Z13.39 HAYLEY-7 negative Screening for malignant neoplasm of breast 214012209 Z12.31 patients' mother had breast cancer at 40 y/o Administra tion of influenza vaccine 76209820 Z23 [id number] Jessie Crockett, [facility] [address] [place] [address] 2023 11:02:07 03/13/2023 15:33:54 Uncontrolled type 2 diabetes mellitus 472609355 E11.65 Today HA1C 6.4random accucheck 178BS 150-260 range just with Lantus 8 units-has not been using Lispro insulin for a whilethe patient is currently not following with anyone for this problem she had been getting meds during ER visits-she had hospitaliz ation at [place] 01/20/2021 found to be in ARF-starte d on dialysissh e presented [facility] arias has transition ed to self dialysis-s he is interested in renal transplant -has consulted at [place] and is on waiting listcurren tly using Lantus 10 units at HS-BS at home 69-160Pati ent stopped using Lispro insulin 5 units bid she has not been using secondary to low sugars and afraidPati ent is taking Labetalol 300mg bidHydrala zine 100mg bid Hypertensive disorder 38 015528 I10 BP Goal: {{Less than 140/90* Le [...] Labetalol 300mg bid Vitamin D deficiency 347 55347 E55.9 Allergic rhinitis 551306 04 J30.9 otc zyrtec Morbid obesity 104880706 E66.01 BMI 32.6Health y Weight: {{4'10= 91-118 [...] 6'4= 156-204 lbs}} Gastroesop hageal reflux disease 672912076 K21.9 stable for now Obesity 561324373 E66.9 BMI 32.6Ht 5' 3 Healthy weight range 95-130 Chronic ki dney disease stage 5 on dialysis 770918842 Z99.2 [place] [facility] [place] Body mass index 30+ - obesity 279757888 Z68.36 BMI 32.6Ht 5' 3 Healthy weight range 95-130 Diabetic p eripheral neuropathy 537249318 E11.40 stable Chronic constipation 236 190709 K59.09 Takes BisacodylT akes stool softener Nasal congestion 8929814 0 R09.81 Requires c ourse of hepatitis B vaccination 792119049 Z28.39 Depression screening 171 055173 Z13.31 PHQ2-9 negative Mental hea lth screening 204647312 Z13.39 HAYLEY-7 negative Administra tion of pneumococcal vaccine 09880950 Z23 Has DM2, CKD, Vaginitis 30809315 N76.0 c/o vaginal itching [id number] MARK Sargent [facility] [address] [place] [address] 09/08/2023 19:36:30 09/09/2023 08:36:21 Obesity 611577022 E66.8 Renewal of prescription 143044039 Z76.0 Diabetic p eripheral neuropathy 166456591 E11.40 Altered appetite 2033429 04 R63.8 Health Concerns Section Related Observation LastModified by Organization Detai ls LastModified Time None Recorded Concern Status LastModified by Organization Details LastModified Time None Recorded Advance Directives Directive N: Payers Encounter Date Sequence Insurance Name Policy Number Policy [place] Covered Member ID [place] Member ID Guarantor Name 06/11/2022 1 [place] Bakari Smith [id number] Bakari Smith 06/11/2022 2 [place] REPLACEMENT PRIMARY) Bakari Smith [id number] Bakari Smith 10/06/2022 1 [place] [id number] Bakari Smith 10/06/2022 2 [place]PLACEMENT [place]) Bakari Smith [id number] Bakari Smith 02/03/2023 1 [place] Bak[place] Smith [id number] Bakari Smith 02/03/2023 2 [place]PLACEMENT [place]) Bakari Smith [id number] Bakari Smith 2023 1 [place] Bak[place] Smith [id number] Bakari Smith 2023 2 [place] REPLACEMENT PRIMARY) Bakari Smith [id number] Bakari Smith 09/08/2023 1 [place] Bakari Smith [id number] Bakari Smith 09/08/2023 2 [place]IC[place] REPLACEMENT [place]IMARY) Bakari Smith [id number] Bakari Smith Notes Date Note Type Note Provider Name and Address Organization Details Recorded Time 3 text/html 42 y/o AAF presents for follow up ER visit on 05/03/2022 to [facility] for severe headache. The patient [...] 80mg yet. KRISTY Topete- Attn: Accounting,[address] [place], [address], [place] [facility] 06/11/2022 15:17:36 3 text/html [...] dailylabetolol 300mg BIDFollows with DR Beth Barrett Manager Rental she is now doing dialysis 3 times [...] Crockett Attn: Accounting,[address], [place], [address], [facility] 10/07/2022 10:01:14 3 text/html 42y/o AARene presents for CBE and mammogram order. She has no complaints. She continues to get dyalisis. She wants to get influenza vaccine. She has no contraindications. RICCI Topete Attn: Accounting,[address], [place], [address], [facility] 02/03/2023 12:30:19 4 text/html ConstipationReported bypatient.Quality:hard;dry ;straining;decreased [...] bidlabetolol 300mg BIDFollows with DR Beth Barrett Manager Rental she is now doing dialysis 3 times [...] no contraindications. RICCI TopeteBC Attn: Accounting,[address] [facility], [place], [address], [facility] 04/02/2023 17:51:42 4 text/html Patient is here [...] cannot do RICCI SargentC Attn: Accounting,[address] [facility], [place], [address], [facility] 09/08/2023 20:26:04 OBGyn Episode Ob Episode Information Episode Created Date Number of Fetuses Patient Bloodtype Patient rh Status Prepregnancy Weight lbs Domestic Partner Domestic Partner Phone Father Name Valve Steamer Status 07/10/19 19 1 CLOSED Fetus Data First Name Last Name Admitted to NICU Weight (g) Sex Living Outcome Pediatric Complications Fetus ID Race Codes Race Delivery Type F [id number] Camilo Calculation Initial Camilo Date Initial Exam [...] Domestic Partner Domestic Partner Phone Father Name Valve Steamer Status 07/10/19 19 1 CLOSED Fetus Data First Name Last Name Admitted to NICU Weight (g) Sex Living Outcome Pediatric Complications Fetus ID Race Codes Race Delivery Type M 11263 Camilo Calculation Initial Camilo Date Initial Exam [...] Domestic Partner Domestic Partner Phone Father Name Valve Steamer Status 07/10/19 19 1 CLOSED Fetus Data First Name Last Name Admitted to NICU Weight (g) Sex Living Outcome Pediatric Complications Fetus ID Race Codes Race Delivery Type F [id number] Camilo Calculation Initial Camilo Date Initial Exam [...]
--- OUTSIDE RECORDS SUMMARY | 2024-04-04 10:17 | XMS_ITS | Patient Health Summary ---
Author Organization [facility] Address [address] [place] [address] Care Team Providers Care Nursing Home Assistant Administrator Name Role Phone Jessie Dickson AUDIOMETRIC TECHNICIAN-FIBERGLASS CONTAINER WINDING OPERATOR Primary Care Pro vider Note from [facility],non-owned Affiliates and Associated Physician Practices is amultiple site organization consisting of ambulatory clinics and hospital sitesin [place], [place], [place] and [place]. This disclosure is being madepursuant to the Care Everywhere program and may not contain all information available regarding this patient. Last updated 17.[facility] Allergies * Metronidazole(Skin Reactions) -Medium Criticality [...] nightly 11 refills remaining * ergocalciferol (DRISDOL) 59836 units capsule(Started 07/26/2018) Take 1 capsule by [...] 1 the morning of procedure) * HYDROcodone-acetaminophen ([place]) 5-325 MG tablet(Started 02/05/2022) Take 1 (one) [...] Comments Blood Pressure 145/85 02/05/2022 12:20 [address]ENDENT [address] garcia aware; ok to d/cv Pulse 74 02/05/2022 11:55 AM WASTEWATER SUPERINTENDENT Temperature 36.8 C (98.2 F) 09/13/2019 8:22 AM CDT Respiratory Rate 12 02/05/2022 11:5 0 AM WASTEWATER SUPERINTENDENT Oxygen Saturation 100% 02/05/2022 11: 55 AM WASTEWATER SUPERINTENDENT Inhaled Oxygen Concentration - - Weight 108.9 kg (240 lb) 09/13/2019 8:2 2 AM CDT Height 160 cm (5' 3 ) 09/13/2019 8:22 AM CDT Body Mass Index 42.51 09/13/2019 8:22 AM CDT Procedures * US AV HEMODIALYSIS ACCESS(Performed 02/19/2022) Performed for End stage renal disease ([facility]) * IR AV FISTULA CREATION(Performed 02/05/2022) Performed for End stage renal disease ([facility]) * CBC W/O DIFFERENTIAL(Performed 01/21/2022) Performed for ESRD (end stage renal disease) ([facility]) * PT-INR(Performed 01/21/2022) Performed for ESRD (end stage renal disease) ([facility]) * PTT(Performed 01/21/2022) Performed for ESRD (end stage renal disease) ([facility]) * VAS RIGHT MAPPING FOR HEMODIALYSIS(Performed 01/09/2022) Performed for End stage renal disease ([facility]) * IR CENTRAL LINE REMOVAL(Performed 05/08/2021) Performed for End stage renal disease ([facility]) * IR CENTRAL LINE INSERT TUNNEL(Performed 04/17/2021) [...] laboratory test result, Drug-induced lupus erythematosus * LEGGETT/ASSISTANT TERMINAL MANAGER (MOHSEN) ANTIBODY IGG(Performed 09/13/2019) Performed for Positive [...] Drug-induced lupus erythematosus * LEGGETT (SM) ANTIBODY MOHSNE(Performed 09/13/2019) Performed for Positive JAYA (antinuclear antibody), [...] Positive JAYA (antinuclear antibody), Optic neuritis * MPO/MI 3 AUTOANTIBODIES PANEL(Performed 09/01/2018) Performed for Abnormal [...] Positive JAYA (antinuclear antibody), Optic neuritis * ASSISTANT TERMINAL MANAGER ANTIBODY(Performed 09/01/2018) Performed for Abnormal laboratory test [...] BASIC METABOLIC PANEL (CALCIUM TOTAL)(Performed 06/07/2018) * ASSISTANT TERMINAL MANAGER ANTIBODY(Performed 05/28/2018) * LEGGETT (SM) ANTIBODY MOHSEN(Performed 05/28/2018) * DNA ANTIBODY DOUBLE STRANDED(Performed 05/28/2018) * GLUCOSE - POINT OF CARE(Performed 05/28/2018) * CRYOGLOBULIN QUANTITATIVE(Performed 05/28/2018) * C-REACTIVE PROTEIN(Performed 05/28/2018) * HEPATITIS C AB SCREEN RFLX NAAT QUANT(Performed 05/28/2018) * HEPATITIS B SURFACE ANTIGEN W RFLX CONFIRMATION(Performed 05/28/2018) * MPO/MI 3 AUTOANTIBODIES PANEL(Performed 05/28/2018) * ANTI-NEUTROPHIL CYTOPLASMIC [...] diabetes mellitus with diabetic nephropathy, unspecified whether jail insulin use (HCC) * HEMOGLOBIN A1C - [...] US AV HEMODIALYSIS ACCESS (02/19/2022 10:00 AM WASTEWATER SUPERINTENDENT) Anatomical Region Laterality Modality Upper Extremity X-Ray Angiograph y Narrative 02/19/2022 12:40 PM WASTEWATER SUPERINTENDENT Elio Garcia MD 02/19/2022 12:50 PM VASCULAR [...] av fistula. Elio Garcia M.D. Interventional Nephrology [facility] V[facility] Access Center [phone] CC: MD Dr. Modesto Canchola MD Beth Tripp MD US ORDERABLES * IR AV FISTULA CREATION (02/05/2022 11:55 AM WASTEWATER SUPERINTENDENT) Anatomical Region Laterality Modality X-Ray Angiograph y Narrative 02/05/2022 4:32 PM WASTEWATER SUPERINTENDENT Eilo Garcia MD 02/05/2022 5:07 PM Procedure Date: 02/05/2022 Attending Surgeon and performing the procedure: Elio Garcia MD Crown Presser: Nohemy Martinez RN Medical indication for the [...] 1. ENDOVASCULAR AV FISTULA CREATION USING THE [employer] TECHNOLOGY; G2171 2. MODERATE CONSCIOUS SEDATION INITIAL 15 MIN; 02522 3. MODERATE CONSCIOUS SEDATION ADDITIONAL 15 MIN; 14528 Findings: 1. The right medial brachial vein was cannulated with a 21 gauge micropuncture needle using ultrasound guidance for vascular access. The needle tip was observed entering the lumen of the vein real-time and permanent recording was obtained. 2. The lateral ulnar vein was selectively catheterized. An angiogram performed showed the lateral ulnar vein draining directly into a short polymerization helper attack communicates with the radial veins and [...] observed with predominant contrast washout through the polymerization helper to the superficial vessels. DESCRIPTION OF THE [...] distally using fluoroscopic guidance. Subsequently, a 6 Jamaican vascular sheath was placed. Using a 0.018 V-18 wire, the 4 Jamaican KA2 catheter was navigated to the ulnar vein in the region of the arteriovenous fistula creation target zone and venography performed: 2. The lateral ulnar vein was selectively catheterized. An angiogram performed showed the lateral ulnar vein draining directly into a short polymerization helper attack communicates with the radial veins and [...] followed by the placement of a 4 Jamaican catheter. After the 4 Jamaican catheter was placed, a cocktail including 2000 [...] without any filling defects. Subsequently, a 4 Jamaican vascular sheath was placed and connected to [...] were removed. Contrast injection into the 6 Jamaican arterial sheath confirmed arteriovenous fistula creation between [...] not part of the AV fistula, 4 Jamaican KA2 catheter was advanced over the venous guide wire. With the aid of a 0.035 in Bentson guidewire the 4 Jamaican K a 2 catheter was used to [...] observed with predominant contrast washout through the polymerization helper to the superficial vessels. Next, the KA2 [...] RECOMMENDATIONS: 1. The patient should follow-up with [facility] for ultrasound evaluations at approximately 1, 2, and 4 weeks from the date of procedure. The arteriovenous fistula should not be cannulated until cleared by either Dr. Azevedo or Dr. Garcia. The right arm should not be used for blood pressure measurements or phlebotomy. Dr Elio Garcia M.D. Interventional Nephrology [facility] Center [phone] Dr. Modesto Tripp MD [facility] Beth Tripp MD IR ORDERABLES * PTT (01/21/2022 9:30 AM WASTEWATER SUPERINTENDENT) PTT 29.6 23.0 - 38.4 sec 01/21/2022 9:58 AM WASTEWATER SUPERINTENDENT [facility] Blood BLOOD SPECIMEN / Unknown Lab Venipuncture / Unknown 01/21/2022 9:30 AM WASTEWATER SUPERINTENDENT 01/21/2022 9:40 AM WASTEWATER SUPERINTENDENT Narrative [facility] - 01/21/2022 9:58 AM WASTEWATER SUPERINTENDENT Heparin Therapeutic Range for PTT: 69.0 - 110.0 seconds. Elio Garcia MD LAB - COAGULATION ORDERABLES [facility] [address] [place] [id number] * PT-INR (01/21/2022 9:30 AM WASTEWATER SUPERINTENDENT) PT 12.6 12.1 - 14.8 sec 01/21/2022 9:58 AM WASTEWATER SUPERINTENDENT [facility] INR 0.9 0.9 - 1.1 01/21/2022 9:58 AM WASTEWATER SUPERINTENDENT [facility] Blood BLOOD SPECIMEN / Unknown Lab Venipuncture / Unknown 01/21/2022 9:30 AM WASTEWATER SUPERINTENDENT 01/21/2022 9:40 AM WASTEWATER SUPERINTENDENT [facility] - 01/21/2022 9:58 AM WASTEWATER SUPERINTENDENT Conventional Warfarin Anticoagulant Therapy: INR Reference Range: 2.0-3.0 Intensive Warfarin Anticoagulant Therapy: INR Reference Range: 2.5-3.5 Elio Garcia MD LAB - COAGULATION ORDERABLES [facility] [address] [place] [id number] * (ABNORMAL) CBC W/O DIFFERENTIAL (01/21/2022 9:30 AM WASTEWATER SUPERINTENDENT) Only the most recent of2 resultswithin the time period is included. WBC 10.4 4.4 - 10.7 x10E9/L 01/21/2022 9:50 AM WASTEWATER SUPERINTENDENT [facility] RBC 3.84 3.80 - 5.20 x10E12/L 01/21/2022 9:50 AM [facility] Hemoglobin 11.0(L) 12.0 - 15.6 gm/dL 01/21/2022 9:50 AM [facility] Hematocrit 34.4(L) 35.9 - 45.5 % 01/21/2022 9:50 AM [facility] MCV 89.6 80.7 - 98.3 fl 01/21/2022 9:50 AM [facility] MCH 28.6 26.7 - 34.0 pg 01/21/2022 9:50 AM [facility] MCHC 32.0 30.8 - 35.9 gm/dL 01/21/2022 9:50 AM [facility] Platelet Count 344 153 - 416 x10E9/L 01/21/2022 9:50 AM [facility] RDW-CV 13.2 12.1 - 14.9 % 01/21/2022 9:50 AM [facility] MPV 9.2(L) 9.4 - 12.9 fl 01/21/2022 9:50 AM [facility] Blood BLOOD SPECIMEN / Unknown Lab Venipuncture / Unknown 01/21/2022 9:30 AM WASTEWATER SUPERINTENDENT 01/21/2022 9:[address] [facility] Elio Garcia MD LAB - HEMATOLOGY ORDERABLES Performing Organization Address [facility]/State/[facility] Co de Phone Number [facility] [address] [place], [place] [id number] * VAS RIGHT MAPPING FOR HEMODIALYSIS (01/09/2022 10:52 AM WASTEWATER SUPERINTENDENT) Anatomical Region Laterality Modality X-Ray Angiograph y [...] the forearm or the upper. The patient's senior oracle soa developer is Beth tripp MD. VS: There were [...] for 01/21/2022. Yola Garcia M.D. Interventional Neprology [facility] [phone] Dr. Beth tripp MD [facility] dialysis Beth Tripp MD VASCULAR LAB [...] Tamir Azevedo M.D. Vascular and Interventional Radiology [facility] [phone] CC: Patient's senior oracle soa developer: Dr. Modesto Tripp Dialysis unit: [facility] Beth Tripp MD IR ORDERABLES * IR CENTRAL LINE INSERT TUNNEL (04/17/2021 2:38 PM WASTEWATER SUPERINTENDENT) Anatomical Region Laterality Modality Chest, Upper Extremity X-Ray Ang iography Narrative 04/17/2021 2:39 PM WASTEWATER SUPERINTENDENT Aaliyah Azevedo MD 04/17/2021 2:45 PM VASCULAR AND INTERVENTIONAL RADIOLOGY EXAMINATION: LEFT INTERNAL JUGULAR TUNNELED CENTRAL VENOUS CATHETER PLACEMENT. RIGHT INTERNAL JUGULAR TUNNELED CENTRAL VENOUS CATHETER REMOVAL Date: 04/17/2021 History: Bakari Smith is a 41 year old female with history of hypertension, diabetes, and end-stage renal disease who is currently dialyzing through a right thoracic tunneled hemodialysis catheter that was placed at [facility]. The patient states that the [...] completed, removal can be scheduled by calling [facility] at [phone]. Tamir Azevedo M.D. Vascular and Interventional Radiology [facility] [phone] CC: Patient's senior oracle soa developer: Dr. Modesto Tripp Dialysis unit: [facility] Beth Tripp MD IR ORDERABLES * (ABNORMAL) URINALYSIS REFLEX TO MICROSCOPIC NO CULTURE (09/13/2019 9:58 AM CDT) Only the most recent of3 resultswithin the time period is included. Color UA Yellow Straw, Yellow, Colorless 09/13/2019 10:45 [facility] Clarity UA Slt Cloudy Clear, Slt Cloudy 09/13/2019 10:45 AM CDT [facility] Specific [place] UA 1.023 1.005 - 1.030 09/13/2019 10:45 AM [facility] pH UA 6.0 5.0 - 8.0 pH 09/13/2019 10:45 AM T [facility] Protein UA 3+(A) Negative mg/dL 09/13/2019 10:45 AM [facility] Glucose UA 2+(A) Negative mg/dL 09/13/2019 10:45 AM CDT [facility] Ketone UA Negative Negative mg/dL 09/13/2019 10:45 AM T [facility] Bilirubin UA Negative Negative mg/dL 09/13/2019 10:45 AM [facility] Blood UA Negative Negative 09/13/2019 10:45 AM T [facility] Nitrite UA Negative Negative 09/13/2019 10:45 AM CDT [facility] Leukocyte Esterase Negative Negative 09/13/2019 10:45 AM CDT [facility] Urobilinogen UA Negative Negative mg/dL 09/13/2019 10:45 AM T [facility] RBC UA 0-2 None Seen, 0-2, 3-5 /HPF 09/13/2019 10:45 AM T [facility] WBC UA 0-5 None Seen, 0-5 /HPF 09/13/2019 10:45 AM [facility] Bacteria UA Trace None, Trace /HPF 09/13/2019 10:45 AM [facility] Squamous Epithelial Cells UA 0-2 None Seen, 0-2 /HPF 09/13/2019 10:45 AM T [facility] Hyaline Casts UA 0-2 None Seen, 0-2 /LPF 09/13/2019 10:45 AM [facility] Urine URINE SPECIMEN OBTAINED BY CLEAN CATCH PROCEDURE / Unknown Collection / Unknown 09/13/2019 9:58 AM CDT 09/13/2019 10:23 AM CDT Narrative [facility] - 09/13/2019 10:45 AM CDT Addie Rodriguez MD LAB - URINALYSIS ORDERABLES [address] [id number] [phone] * (ABNORMAL) JAYA BLOOD SINGLE PATTERN (09/13/2019 9:42 AM CDT) JAYA Pattern Homogeneo us(A) 09/16/2019 7:56 AM CDT [facility] ([facility]) JAYA Titer 1:320(A) 09/16/2019 7:56 AM CDT [facility] ([facility]) Comment: Performed By: [facility] [address] [place] [address] Combination Worker: Sahil Chin MD, MS Blood BLOOD SPECIMEN / Unknown Lab Venipuncture / Unknown 09/13/2019 9:42 AM CDT 09/13/2019 10:24 AM CDT Addie Mili Rodriguez MD LAB - CHEMISTRY O RDERABLES [facility] [employer] [facility]) [address] * SS-A (SJOGREN'S) 52+60 ANTIBODIES (09/13/2019 9:42 AM CDT) SS-A 52 Antibody 1 0 - 40 AU/mL 09/15/2019 9:19 AM CDT [employer] ([facility]) Comment: INTERPRETIVE INFORMATION: SSA-52 (Ro52) (MOHSEN) Antibody, [...] - 40 AU/mL 09/15/2019 9:19 AM CDT [employer] ([facility]) Comment: REFERENCE INTERVAL: SSA-60 (Ro60) (MOHSEN) Antibody, IgG 29 AU/mL or Less ............. Negative 30 - 40 AU/mL ................ Equivocal 41 AU/mL or Greater .......... Positive Performed By: [facility] [address] [place] [address] Combination Worker: Sahil Chin MD, MS Blood BLOOD SPECIMEN / Unknown Lab Venipuncture / Unknown 09/13/2019 9:42 AM CDT 09/13/2019 10:23 AM CDT Addie Rodriguez MD LAB - CHEMISTRY O NARDA Performing Organization Address [facility] Co de Phone Number [employer] [facility]) [address] * LEGGETT/ASSISTANT TERMINAL MANAGER (MOHSEN) ANTIBODY IGG (09/13/2019 9:42 AM CDT) Leggett/ASSISTANT TERMINAL MANAGER (MOHSEN) Antibody IgG 3 0 - 40 AU/mL 09/15/2019 9:19 AM CDT [facility] [employer] ([facility]) Comment: INTERPRETIVE INFORMATION: Leggett/ASSISTANT TERMINAL MANAGER (MOHSEN) Antibody, IgG 29 AU/mL or Less ............. Negative 30 - 40 AU/mL ................ Equivocal 41 AU/mL or Greater .......... Positive Leggett/ASSISTANT TERMINAL MANAGER antibodies are frequently seen in patients with mixed connective tissue disease (MCTD) and are also associated with other systemic autoimmune rheumatic diseases (SARDs) such as systemic lupus erythematosus (SLE), systemic sclerosis, and myositis. Antibodies targeting the Leggett/ASSISTANT TERMINAL MANAGER antigenic complex also recognize Leggett antigens, therefore, the Leggett antibody response must be considered when interpreting these results. Performed By: [facility] [address] [place] [address] Combination Worker: Sahil Chin MD, MS Blood BLOOD SPECIMEN / Unknown Lab Venipuncture / Unknown 09/13/2019 9:42 AM CDT 09/13/2019 10:23 AM CDT Addie Rodriguez MD LAB - CHEMISTRY O NARDA Performing Organization Address [facility]/ZIP Co de Phone Number [facility] ([facility]) [address] * (ABNORMAL) CHROMATIN ANTIBODY (09/13/2019 9:42 AM CDT) Only the most recent of3 resultswithin the time period is included. Chromatin Antibody 52(H) 0 - 19 Units 09/17/2019 1:03 PM CDT [facility] [employer] ([facility]) Comment: INTERPRETIVE INFORMATION: Chromatin Antibody, IgG 19 Units or less: Negative 20 - 60 Units: Moderate Positive 61 Units or greater: Strong Positive The presence of anti-chromatin antibodies may be useful in the diagnosis of systemic lupus erythematosus (SLE) or drug-induced lupus (DIL) and have been reported to be predictive of lupus nephritis, especially when antibody levels are high. Performed By: [facility] [address] [place] [address] Combination Worker: Sahil Chin MD, MS Blood BLOOD SPECIMEN / Unknown Lab Venipuncture / Unknown 09/13/2019 9:42 AM CDT 09/13/2019 10:24 AM CDT Addie Rodriguez MD LAB - SEROLOGY OR DERABLES [facility]) [address] [place] [address], [facility] * (ABNORMAL) DNA ANTIBODY DS CRITHIDIA TITER (09/13/2019 9:42 AM CDT) Only the most recent of2 resultswithin the time period is included. dsDNA Antibody IgG 1:20(H) <1:10 2019 4:26 PM CDT [facility] [employer] ([facility]) Comment: INTERPRETIVE INFORMATION: Double-Stranded DNA (dsDNA) Antibody, [...] recommendations for testing may be found at http://www.[employer].com/Topics/AutoimmuneDz/ConnectiveTissueDz/i ndex.html. Performed By: [facility] [employer] [address] [place] [address] Combination Worker: Sahil Chin MD, MS Blood BLOOD SPECIMEN / Unknown Lab Venipuncture / Unknown 09/13/2019 9:42 AM CDT 09/13/2019 10:23 AM CDT Addie Rodriguez MD LAB - SEROLOGY OR DERABLES Performing Organization Address City/[facility]/ZIP Co de Phone Number [facility] [employer] [facility]) [address] [place] [address] * LEGGETT (SM) ANTIBODY MOHSEN (09/13/2019 9:42 AM CDT) Only the most recent of3 resultswithin the time period is included. Leggett (MOHSEN) Antibody 1 0 - 40 AU/mL 09/15/2019 6:32 AM CDT [facility] ([facility]) Comment: INTERPRETIVE INFORMATION: Leggett (MOHSEN) Antibody, IgG 29 AU/mL or Less ............. Negative 30 - 40 AU/mL ................ Equivocal 41 AU/mL or Greater .......... Positive Leggett antibody is highly specific (greater than 90 percent) for systemic lupus erythematosus (SLE) but only occurs in 30-35 percent of SLE cases. The presence of antibodies to Leggett has variable associations with SLE clinical manifestations. Performed By: [facility] [address] [place] [address] Combination Worker: Sahil Chin MD, MS Blood BLOOD SPECIMEN / Unknown Lab Venipuncture / Unknown 09/13/2019 9:42 AM CDT 09/13/2019 10:23 AM CDT Addie Rodriguez MD LAB - CHEMISTRY O RDERABLES Performing Organization Address City/[facility]/ZIP Co de Phone Number [facility]) [address] [place] [address] * (ABNORMAL) C-REACTIVE PROTEIN (09/13/2019 9:42 AM CDT) Only the most recent of4 resultswithin the time period is included. Pathologist [facility] C-Reactive Protein 1.2(H) <=0.5 mg/dL 09/13/2019 11:22 AM CDT [facility] Blood BLOOD SPECIMEN / Unknown Lab Venipuncture / Unknown 09/13/2019 9:42 AM CDT 09/13/2019 10:24 AM CDT Addie Rodriguez MD LAB - CHEMISTRY O RDERALD [facility] [address] [address], [facility] [phone] * (ABNORMAL) JAYA BLOOD SCREEN W/REFLEX TITER (09/13/2019 9:42 AM CDT) Only the most recent of4 resultswithin the time period is included. [facility] JAYA IgG Detected (A) None Detected 09/15/2019 3:12 PM CDT [employer] ([facility]) Comment: Antibodies to Anti-Nuclear Antibodies (JAYA) detected. [...] dsDNA, histones, SS-A (Ro), SS-B (La), Leggett, Leggett/ASSISTANT TERMINAL MANAGER, Scl-70, Mariajose-1, centromeric proteins, other antigens extracted from the HEp-2 cell nucleus. JAYA CAITLIN assays have been reported to have lower sensitivities than JAYA IFA for systemic autoimmune rheumatic diseases (SARD). Negative results do not necessarily rule out SARD. Performed By: [facility] [address] [place] [address] Combination Worker: Sahil Chin MD, MS Blood BLOOD SPECIMEN / Unknown Lab Venipuncture / Unknown 09/13/2019 9:42 AM CDT 09/13/2019 10:24 AM CDT Addie Rodriguez MD LAB - CHEMISTRY O RDMANISHA Performing Organization Address [facility]/ZIP Co de Phone Number [facility] [employer] [facility]) [address] * HISTONE ANTIBODY (09/13/2019 9:42 AM CDT) Only the most recent of3 resultswithin the time period is included. Histone Antibody IgG 0.7 0.0 - 0.9 Units 09/16/2019 10:13 AM CDT [facility] [employer] ([facility]) Comment: INTERPRETIVE INFORMATION: Histone Ab, IgG 0.9 Units or less ............ Negative 1.0 - 1.5 Units .............. Weak Positive 1.6 - 2.5 Units .............. Moderate Positive 2.6 Units or greater ......... Strong Positive Performed By: [facility] [employer] [address] [place] [address] Combination Worker: Sahil Chin MD, MS Blood BLOOD SPECIMEN / Unknown Lab Venipuncture / Unknown 09/13/2019 9:42 AM CDT 09/13/2019 10:23 AM CDT Addie Rodriguez MD LAB - CHEMISTRY O NARDA Performing Organization Address [facility] Co de Phone Number [facility] [employer] ([facility]) [address] * SS-B (SJOGREN'S) ANTIBODY (09/13/2019 9:42 AM CDT) Only the most recent of3 resultswithin the time period is included. SS-B Antibody 0 0 - 40 AU/mL 09/15/2019 6:32 AM CDT [facility] [employer] ([facility]) Comment: INTERPRETIVE INFORMATION: SSB (La) (MOHSEN) Ab, [...] (PSS) also have this antibody. Performed By: [place] [address] Combination Worker: Sahil Chin MD, MS Blood BLOOD SPECIMEN / Unknown Lab Venipuncture / Unknown 09/13/2019 9:42 AM CDT 09/13/2019 10:23 AM CDT Addie Rodriguez MD LAB - CHEMISTRY O RDERABLES [facility] ([facility]) [address] [place] [address] * (ABNORMAL) ERYTHROCYTE SEDIMENTATION RATE (09/13/2019 9:42 AM CDT) Only the most recent of5 resultswithin the time period is included. Pathologist [facility] Erythrocyte Sedimentation Rate Westergren 85(H) 0 - 20 MM/HR 09/13/2019 10:51 AM CDT [facility] Blood BLOOD SPECIMEN / Unknown Lab Venipuncture / Unknown 09/13/2019 9:42 AM CDT 09/13/2019 10:24 AM CDT Addie Rodriguez MD LAB - HEMATOLOGY ORDERABLES [address] [address] [phone] * (ABNORMAL) CBC WITH DIFFERENTIAL (09/13/2019 9:42 AM CDT) Only the most recent of3 resultswithin the time period is included. WBC 5.1 3.5 - 10.5 10 3/uL 09/13/2019 10:40 AM CDT [facility] RBC 4.53 3.90 - 5.00 10 6/uL 09/13/2019 10:40 AM CDT [facility] Hemoglobin 11.5(L) 12.0 - 15.5 g/dL 09/13/2019 [...] - 0.66 10 3/uL 09/13/2019 10:40 AM [facility] Eosinophils Absolute 0.04 0.00 - 0.45 10 [...] Addie Rodriguez MD LAB - HEMATOLOGY ORDERABLES [address] [address] [phone] * (ABNORMAL) COMPREHENSIVE METABOLIC PANEL (09/13/2019 9:42 [...] 3.4 - 5.0 g/dL 09/13/2019 11:30 AM [facility] Bilirubin Total 0.1(L) 0.2 - 1.2 mg/dL [...] - CHEMISTRY O RDERABLES Performing Organization Address [facility]/State/[facility] Co de Phone Number [address] [address] [phone] * OPH VISUAL FIELD TEST [facility] (11/04/2018 [...] Unknown 11/01/2018 10:11 AM CDT Tessie Pritchard AUDIOMETRIC TECHNICIAN-FIBERGLASS CONTAINER WINDING OPERATOR LAB - POINT O F CARE ORDERABLES [...] 19 units 09/02/2018 10:06 PM CDT [facility] ([facility]) Comment: Negative <20 Weak positive 20 - 39 Moderate positive 40 - 59 Strong positive >59 Blood BLOOD SPECIMEN / Unknown Lab Venipuncture / Unknown 09/01/2018 10:21 AM CDT 09/01/2018 10:40 AM CDT Narrative [facility] ([facility]) - 09/02/2018 10:06 PM CDT Performed at: 01 - [address] [id number] Terminal Worker: Negro Sullivan MD, Phone: [phone] Damaris Shetty DO LAB - SEROLOGY ORDER NAZ [facility] ([facility]) [address] [place] [address] * (ABNORMAL) MELISSA STAINING PATTERNS REFLEXED (09/01/2018 10:21 AM CDT) Only the most recent of3 resultswithin the time period is included. Homogeneous Pattern 1:160(H) 09/02/2018 2:11 PM CDT [facility] ([facility]) Note Comment 09/02/2018 2:11 PM CDT [facility] ([facility]) Comment: A positive JAYA result may occur in healthy individuals (low titer) or be associated with a variety of diseases. See interpretation chart which is not all inclusive: Pattern Antigen Detected Suggested Disease Association Homogeneous DNA(ds,ss), SLE - High titers Nucleosomes, Histones Drug-induced SLE Speckled Sm, ASSISTANT TERMINAL MANAGER, SCL-70, SLE,MCTD,PSS (diffuse form), SS-A/SS-B Sjogrens Nucleolar SCL-70, PM-1/SCL High titers Scleroderma, PM/DM Centromere Centromere PSS (limited form) w/Crest syndrome variable Nuclear Dot [id number] Primary Biliary Cirrhosis Nuclear GP210, Primary Biliary Cirrhosis Membrane roxanne A,B,C Blood BLOOD SPECIMEN / Unknown Lab Venipuncture / Unknown 09/01/2018 10:21 AM CDT 09/01/2018 10:41 AM CDT Narrative [facility] ([facility]) - 09/02/2018 2:11 PM CDT Performed at: [address] [place] [address] [address] [place], [place] [id number] Terminal Worker: Neil Maloney PhD, Phone: [phone] Damaris Shetty DO LAB - PATHOLOGY/CYTO LOGY ORDERABLES Performing Organization Address [facility] de Phone Number [facility] [address] [place] [address] * ASSISTANT TERMINAL MANAGER ANTIBODY (09/01/2018 10:21 AM CDT) Only the most recent of2 resultswithin the time period is included. SM/ASSISTANT TERMINAL MANAGER Antibody 5.4 0.0 - 19.9 Units 09/03/2018 10:34 AM CDT [facility] Comment: MOHSEN Antibody Numeric Result Interpretation: <20.0 Units: Negative 20.0 - 39.0 Units: Weakly Positive >39.0 Units: Positive Blood BLOOD SPECIMEN / Unknown Lab Venipuncture / Unknown 09/01/2018 10:21 AM CDT 09/01/2018 10:40 AM CDT Damaris Shetty DO LAB - CHEMISTRY PRESTON MONTEIRO Performing Organization Address [facility] Co de Phone Number [address] [phone] * RHEUMATOID FACTOR BLOOD QUANTITATIVE (09/01/2018 10:21 AM CDT) Rheumatoid Factor <15 <30 IU/mL 09/01/2018 4:17 PM CDT [facility] Blood BLOOD SPECIMEN / Unknown Lab Venipuncture / Unknown 09/01/2018 10:21 AM CDT 09/01/2018 10:40 AM CDT Damaris Clearyancelmo BAR[facility] LAB - CHEMISTRY ORDGarrison MONTEIRO Performing Organization Address City/[facility]/ZIP Co de Phone Number [address] [phone] * THYROID PEROXIDASE ANTIBODY (09/01/2018 10:21 AM CDT) Pathologist [facility] Thyroid Peroxidase TPO Antibody 16 0 - 34 IU/mL 09/02/2018 3:07 AM CDT [facility] ([facility]) Blood BLOOD SPECIMEN / Unknown Lab Venipuncture / Unknown 09/01/2018 10:21 AM CDT 09/01/2018 10:40 AM CDT Narrative [facility] ([facility]) - 09/02/2018 3:07 AM CDT Performed at: 01 - [facility] [address] [place], [place] [id number] Terminal Worker: Neil Maloney PhD, Phone: [phone] Damaris Clearyancelmo BAR[facility]S LAB - CHEMISTRY PRESTON MONTEIRO [facility] ([facility]) [address] [place] [address] * THYROGLOBULIN ANTIBODY (09/01/2018 10:21 AM CDT) Thyroglobulin Antibody <1.0 0.0 - 0.9 IU/mL 09/02/2018 1:10 PM CDT [facility] ([facility]) Comment:Thyroglobulin Antibo dy measured by Beatriz Zachariah Methodology Blood BLOOD SPECIMEN / Unknown Lab Venipuncture / Unknown 09/01/2018 10:21 AM CDT 09/01/2018 10:39 AM CDT Narrative [facility] ([facility]) - 09/02/2018 1:10 PM CDT Performed at: [address] [place] [address] [address] [place], [place] [id number] Terminal Worker: Neil Maloney PhD, Phone: [phone] Damaris Shetty LAB - CHEMISTRY [facility] THANIA Performing Organization Address City/[facility]/ZIP Co de Phone Number [facility] ([facility]) [address] [place] [address] * SS-A (SJOGREN'S) ANTIBODY (09/01/2018 10:21 AM CDT) Only the most recent of2 resultswithin the time period is included. Pathologist [facility] SS-A (Ro) Antibody 2.3 0.0 - 19.9 Units 09/03/2018 10:35 AM CDT [facility] Comment: MOHSEN Antibody Numeric Result Interpretation: <20.0 Units: Negative 20.0 - 39.0 Units: Weakly Positive >39.0 Units: Positive Blood BLOOD SPECIMEN / Unknown Lab Venipuncture / Unknown 09/01/2018 10:21 AM CDT 09/01/2018 10:40 AM CDT Damaris Shetty LAB - CHEMISTRY GASQUETGarrison MONTEIRO Performing Organization Address [facility]/ZIP Co de Phone Number [address] [phone] * MPO/MI 3 AUTOANTIBODIES PANEL (09/01/2018 10:21 AM CDT) Only the most recent of2 resultswithin the time period is included. Anti-myeloperox idase (MPO) Antibody <9.0 0.0 - 9.0 U/mL 09/03/2018 1:08 PM CDT [facility] ([facility]) Anti-proteinase 3 (MI-3) Abs <3.5 0.0 - 3.5 U/mL 09/03/2018 1:08 PM CDT [facility] ([facility]) Blood BLOOD SPECIMEN / Unknown Lab Venipuncture / Unknown 09/01/2018 10:21 AM CDT 09/01/2018 10:40 AM CDT Narrative [facility] ([facility]) - 09/03/2018 1:08 PM CDT Performed at: - [address] [id number] Terminal Worker: Negro Sullivan MD, Phone: [phone] Damaris Clearyancelmo [facility] LAB - CHEMISTRY DELLGarrison THANIA [facility] ([facility]) [address] [place] [address] * TSH (09/01/2018 10:21 AM CDT) Only the most recent of3 resultswithin the time period is included. TSH 1.625 0.350 - 4.940 uIU/mL 09/01/2018 12:32 PM CDT [facility] Blood BLOOD SPECIMEN / Unknown Lab Venipuncture / Unknown 09/01/2018 10:21 AM CDT 09/01/2018 10:39 AM CDT Damaris Clearyancelmo [facility] LAB - CHEMISTRY DELLGarrison GRANDEELEN Performing Organization Address [facility]/ZIP Co de Phone Number [address] [phone] * T4 FREE (09/01/2018 10:21 AM CDT) T4 Free 0.9 0.7 - 1.5 ng/dL 09/01/2018 12:32 PM CDT [facility] Blood BLOOD SPECIMEN / Unknown Lab Venipuncture / Unknown 09/01/2018 10:21 AM CDT 09/01/2018 10:39 AM CDT aDmaris Clearyancelmo [facility] LAB - CHEMISTRY PRESTON THANIA Performing Organization Address City/[facility]/ZIP Co de Phone Number [address] [phone] * OPH OCT TEST [facility] (06/08/2018 12:00 [...] AM CDT 06/07/2018 Narrative Resulting Agency Comment [facility] [address] [facility] [phone] Tessie Pritchard AUDIOMETRIC TECHNICIAN-FIBERGLASS CONTAINER WINDING OPERATOR LAB - URINE C HEMISTRY ORDERABLES [facility] INSURANCE BILL [address] [place] [address] * (ABNORMAL) VITAMIN D 25-HYDROXY (06/07/2018 11:49 AM CDT) Only the most recent of2 resultswithin the time period is included. Vitamin D, 25 Hydroxy 8.9(L) 30.0 - 100.0 ng/mL [facility] INSURANCE BILL Comment: Vitamin D deficiency has been defined by the [place] of Medicine and an Endocrine Society practice guideline as a level of serum 25-OH vitamin D less than 20 ng/mL (1,2). The Endocrine Society went on to further define vitamin D insufficiency as a level between 21 and 29 ng/mL (2). 1. IOM ([place] of [employer]). 2010. Dietary reference intakes for calcium and D. [place]: The National Academies Press. 2. Heavenly MF, Carlton SANDOVAL, Clive BAUMANN, et al. Evaluation, treatment, and prevention of vitamin D deficiency: an Endocrine Society clinical practice guideline. JCEM. 2010; 96(4):1911-30. 06/07/2018 11:4 9 AM CDT 06/07/2018 Narrative Resulting Agency Comment [facility] [address] [facility] [phone] Tessie Dolan Macho AUDIOMETRIC TECHNICIAN-FIBERGLASS CONTAINER WINDING OPERATOR LAB - BANK VAULT ATTENDANT RY ORDERABLES [facility] INSURANCE BILL [address] [place] [address] * (ABNORMAL) BASIC METABOLIC PANEL (CALCIUM TOTAL) [...] CDT 06/07/2018 Narrative Resulting Agency Comment [facility] [address] [facility] [phone] Tessieyola Pritchard AUDIOMETRIC TECHNICIAN-FIBERGLASS CONTAINER WINDING OPERATOR LAB - BANK VAULT ATTENDANT RY ORDERABLES Performing Organization Address City/[facility]/ZIP Co de Phone Number [facility] INSURANCE BILL [address] [place] [address] * DNA ANTIBODY DOUBLE STRANDED (05/28/2018 12:26 PM CDT) dsDNA Antibody 22 0 - 29 IU/mL 06/01/2018 12:57 PM CDT [facility] Comment: dsDNA Antibody Numeric Result Interpretation: 0 - 29 IU/mL: Negative 30 - 75 IU/mL: Borderline >75 IU/mL: Positive Blood BLOOD SPECIMEN / Unknown Lab Venipuncture / Unknown 05/28/2018 12:26 PM CDT 05/28/2018 12:35 PM CDT Es Thornton MD LAB - HEMATOLOGY ORD ERABLES [address] [phone] * (ABNORMAL) GLUCOSE - POINT OF CARE (05/28/2018 12:21 PM CDT) Only the most recent of24 resultswithin the time period is included. [facility] Glucose WB/POC 294(H) 70 - 115 mg/dL 05/28/2018 12:24 PM CDT [facility] Specimen Type Arterial/C apillary 05/28/2018 12:24 PM CDT [facility] Blood BLOOD SPECIMEN / Unknown 05/28/2018 12:21 PM CDT 05/28/2018 12:24 PM CDT Narrative [facility] - 05/28/2018 12:24 PM CDT PHARMACY CUSTOMER CARE SPECIALIST: ELISSA CAMARA Dion Arreola MD LAB - POINT OF CARE ORDERABLES [address] [phone] * CRYOGLOBULIN QUANTITATIVE (05/28/2018 12:14 PM CDT) [facility] Cryoglobulin Quantitative None Detected None Detected mg/dL 05/31/2018 11:10 AM CDT [facility] Blood BLOOD SPECIMEN / Unknown Lab Venipuncture / Unknown 05/28/2018 12:14 PM CDT 05/28/2018 12:31 PM CDT Es Thornton MD LAB - CHEMISTRY PRESTON MONTEIRO Performing Organization Address [facility]/ZIP Co de Phone Number [address] [phone] * HEPATITIS C AB SCREEN RFLX NAAT QUANT (05/28/2018 12:13 PM CDT) Pathologist [facility] Hepatitis C Antibody Non-react javier Non-reac tive 05/28/2018 1:18 PM CDT [facility] Comment: Hepatitis C Antibody screen indicates no [...] - CHEMISTRY PRESTON MONTEIRO Performing Organization Address [facility] Co de Phone Number [address] [phone] * NEUTROPHIL CYTOPLASMIC ANTIBODY IGG (05/28/2018 12:13 PM CDT) Only the most recent of2 resultswithin the time period is included. [facility] ANCA IgG <1:20 <1:20 05/30/2018 3:16 PM CDT [employer] [facility] ([facility]) Comment: The ANCA IFA is <1:20; therefore, [...] collagen vascular disease or arthritis. Performed by [facility], [address] [place] [id number] [email or web address], Sahil Chin MD, Lab. Director Blood BLOOD SPECIMEN / Unknown Lab Venipuncture / Unknown 05/28/2018 12:13 PM CDT 05/28/2018 12:36 PM CDT Es Thornton MD LAB - SEROLOGY ORDER NAZ [facility] ([facility]) [address] * COMPLEMENT TOTAL (05/28/2018 12:13 PM CDT) Complement Total CH50 >60 >41 U/mL 05/31/2018 2:10 PM CDT [facility] ([facility]) Blood BLOOD SPECIMEN / Unknown Lab Venipuncture / Unknown 05/28/2018 12:13 PM CDT 05/28/2018 12:35 PM CDT Narrative [facility] ([facility]) - 05/31/2018 2:10 PM CDT Performed at: [facility] [address] [id number] Terminal Worker: Neil Maloney PhD, Phone: [phone] Es Thornton MD LAB - CHEMISTRY PRESTON MONTEIRO Performing Organization Address City/[facility]/ZIP Co de Phone Number [facility] ([facility]) [address] [place] [address] * SCLERODERMA 70 (SCL) ANTIBODY (05/28/2018 12:13 PM CDT) SCL-70 Antibody 4.3 0.0 - 19.9 Units 06/01/2018 12:57 PM CDT [facility] Comment: MOHSNE Antibody Numeric Result Interpretation: <20.0 Units: Negative 20.0 - 39.0 Units: Weakly Positive >39.0 Units: Positive Blood BLOOD SPECIMEN / Unknown Lab Venipuncture / Unknown 05/28/2018 12:13 PM CDT 05/28/2018 12:35 PM CDT Es Thornton MD LAB - CHEMISTRY PRESTON MONTEIRO [facility] [address] [phone] * HEPATITIS B SURFACE ANTIGEN W RFLX CONFIRMATION (05/28/2018 12:13 PM CDT) Hepatitis B Virus Surface Antigen Non-reacti ve Non-reacti ve 05/28/2018 1:17 PM CDT [facility] Blood BLOOD SPECIMEN / Unknown Lab Venipuncture / Unknown 05/28/2018 12:13 PM CDT 05/28/2018 12:35 PM CDT Es Thornton MD LAB - CHEMISTRY PRESTON MONTEIRO Performing Organization Address City/[facility]/[place] [address], [facility] [phone] * PTH INTACT W/O CALCIUM (05/28/2018 12:12 PM CDT) Pathologist [facility] PTH Intact 49.1 15.0 - 65.0 pg/mL 05/28/2018 2:16 PM CDT [facility] Blood BLOOD SPECIMEN / Unknown Lab Venipuncture / Unknown 05/28/2018 12:12 PM CDT 05/28/2018 12:37 PM CDT Es Thornton MD LAB - CHEMISTRY PRESTON MONTEIRO Performing Organization Address City/[facility]/[place] [address], [facility] [phone] * ANGIOTENSIN CONVERTING ENZYME BLOOD (05/28/2018 12:12 PM CDT) Pathologist [facility] Angiotensin-Con verting Enzyme 60 14 - 82 U/L 05/31/2018 2:10 PM CDT [facility] ([facility]) Blood BLOOD SPECIMEN / Unknown Lab Venipuncture / Unknown 05/28/2018 12:12 PM CDT 05/28/2018 12:36 PM CDT Narrative [facility] ([facility]) - 05/31/2018 2:10 PM CDT Performed at: - [address] [id number] Terminal Worker: Neil Maloney PhD, Phone: [phone] Es Thornton MD LAB - CHEMISTRY ORDE THANIA [facility] ([facility]) [address] [place] [address], [place] * COMPLEMENT C4 (05/28/2018 12:12 PM CDT) Complement C4 40 15 - 57 mg/dL 05/28/2018 1:03 PM CDT [facility] Blood BLOOD SPECIMEN / Unknown Lab Venipuncture / Unknown 05/28/2018 12:12 PM CDT 05/28/2018 12:36 PM CDT Es Thornton MD LAB - SEROLOGY ORDER NAZ Performing Organization Address City/[facility]/ZIP Co de Phone Number [address] [phone] * COMPLEMENT C3 (05/28/2018 12:12 PM CDT) Complement C3 127 82 - 193 mg/dL 05/28/2018 1:03 PM CDT [facility] Blood BLOOD SPECIMEN / Unknown Lab Venipuncture / Unknown 05/28/2018 12:12 PM CDT 05/28/2018 12:36 PM CDT Es Thornton MD LAB - CHEMISTRY ORDE THANIA Performing Organization Address City/[facility]/ZIP Co de Phone Number [address] [phone] * US RETROPERITONEAL COMPLETE (05/26/2018 3:43 PM [...] Not Established mmol/L 05/26/2018 10:12 AM CDT [facility] Urine URINE SPECIMEN OBTAINED BY CLEAN CATCH PROCEDURE / Unknown Collection / Unknown 05/26/2018 9:44 AM CDT 05/26/2018 9:54 AM CDT Zach Morin MD LAB - URINE CHEMISTR Y ORDERABLES Performing Organization Address [facility] Co de Phone Number [address] [phone] * UREA NITROGEN URINE RANDOM (05/26/2018 9:44 AM CDT) Urea Nitrogen Random Urine 712 Not Established mg/dL 05/26/2018 10:54 AM CDT [facility] Urine URINE SPECIMEN OBTAINED BY CLEAN CATCH PROCEDURE / Unknown Collection / Unknown 05/26/2018 9:44 AM CDT 05/26/2018 10:42 AM CDT Ashish Mckee MD LAB - URINE CHEMISTR Y ORDERABLES Performing Organization Address [facility] de Phone Number [address] [phone] * CREATININE URINE RANDOM (05/26/2018 9:44 AM CDT) Creatinine Urine 85 Not Established mg/dL 05/26/2018 10:14 AM CDT [facility] Comment: Result obtained by dilution. Urine URINE SPECIMEN OBTAINED BY CLEAN CATCH PROCEDURE / Unknown Collection / Unknown 05/26/2018 9:44 AM CDT 05/26/2018 9:54 AM CDT Zach Morin MD LAB - URINE CHEMISTR Y ORDERABLES Performing Organization Address [facility] Co de Phone Number [address] [phone] * MAGNESIUM BLOOD (05/25/2018 9:29 PM CDT) Only the most recent of2 resultswithin the time period is included. Magnesium 1.8 1.6 - 2.6 mg/dL 05/25/2018 9:57 PM CDT [facility] Blood BLOOD SPECIMEN / Unknown Venipuncture / Unknown 05/25/2018 9:29 PM CDT 05/25/2018 9:35 PM CDT Albert Morejon MD LAB - CHEMISTRY PRESTON MONTEIRO [facility] [address] [place] [address] * FLOW CYTOMETRY BODY FLUID (05/25/2018 3:00 PM CDT) Case Report Flow Cytometry Case: [id number] Authorizing Provider: Zach Morin MD Collected: 05/25/2018 03:00 PM Ordering Location: [address] Received: 05/25/2018 04:01 PM Pathologist: Chaz Arango MD Specimen: CSF 9 4:18 PM CDT [facility] Final Diagnosis Cerebrospinal fluid, flow cytometric immunophenotypic analysis: - No evidence of non Hodgkin lymphoma or high-grade myeloid neoplasm. - See interpretation. 9 4:18 PM CDT [facility] Flow Cytometry Interpretation The [...] the flow cytometry specimen is reviewed for corporate quality assurance manager purposes. Overall, the cerebrospinal fluid specimen shows no evidence of involvement by non Hodgkin lymphoma or a high-grade myeloid neoplasm. Correlation with clinical findings is required. CHAMBER OF COMMER[employer] DIVISION MANAGER/NW 9 4:18 PM CDT [facility] Flow Cytometry Results Differential Result Comment Flow Cell Count /uL 440 Total Viability % 100 Lymphocytes % 91 Dim CD45 Region % 1 Monocytes % 3 Granulocytes % 4 9 4:18 PM CDT [facility] Client Specimen ID # [id number] 9 4:[address] [facility] Reason for test Blurry vision 368.8 9 4:18 PM T [facility] Number of markers 20 [...] A Flow CD8 A Flow CD30 A [place]+CD19+ A Lambda+CD19+ 9 4:18 PM T [facility] Disclaimer Test performed at [facility], [address] [place] [address], [id number]. *The established laboratory minimum viability is 70%. [...] high complexity clinical testing. 9 4:[address] [facility] Embedded Images 4:18 PM T [facility] Fluid CEREBROSPINAL FLUID SPECIMEN / Unknown Collection / Unknown 05/25/2018 3:00 PM CDT 05/25/2018 4:01 PM CDT Zach Morin MD LAB - PATHOLOGY/CYTO LOGY ORDERABLES [facility] [address] [place] [address]. [place] [address], [facility] [phone] * PATHOLOGY SMEAR BODY FLUID (05/25/2018 11:30 AM CDT) Pathology Diff Review DIFFERENTIAL REVIEW - CONFIRMED DIFFERENTIAL REVIEW - CONFIRMED 05/25/2018 2:49 PM T [facility] Comment: Clinical history: Ms. Smith is a 38 [id number] with a history of obesity, DM, and [...] Morin MD LAB - PATHOLOGY/CYTO LOGY ORDERABLES [address] [phone] * NEUROMYELITIS OPTICA APQ4 IGG CSF W/RFLX (05/25/2018 11:30 AM CDT) Neuromyelitis Optica/AQP4 IgG CSF < 1:1 05/28/2018 5:16 PM CDT [employer] ([facility]) Comment: Aquaporin-4 Receptor Antibody, IgG is not [...] diagnostic for NMO. See Compliance Statement B: [email or web address] Performed by [facility], [address] [place] [id number] [email or web address], Sahil Chin MD, Lab. Director Cerebral spinal fluid CEREBROSPINAL FLUID SPECIMEN / Unknown Collection / Unknown 05/25/2018 11:30 AM CDT 05/25/2018 11:52 AM CDT Zach Morin MD LAB - BODY FLUID ORD ERABLES [address] * DIFFERENTIAL MANUAL FLUID (05/25/2018 11:30 AM CDT) Segs % Fluid 7 % 05/25/2018 1:01 PM CDT [facility] Lymphocytes % Fluid 68 % 05/25/2018 1:01 PM CDT [facility] Monocytes % Fluid 4 % 05/25/2018 1:01 PM CDT [facility] Atypical Lymphs % Fluid 21 % 05/25/2018 1:01 PM CDT [facility] Cerebral spinal fluid CEREBROSPINAL FLUID SPECIMEN / Unknown Collection / Unknown 05/25/2018 11:30 AM CDT 05/25/2018 11:49 AM CDT Zach Morin MD LAB - BODY FLUID ORD ERABLES Performing Organization Address [facility]/ZIP Co de Phone Number [address] [phone] * GRAM STAIN (LAB ORDERED) (05/25/2018 11:30 AM CDT) Gram Stain Moderate White blood cells 05/25/2018 8:02 PM CDT [facility] Gram Stain No organisms seen 05/25/2018 8:02 PM CDT [facility] Microbiology Collection / Unknown 05/25/2018 11:30 AM CDT 05/25/2018 11:52 AM CDT Zach Morin MD LAB - MICROBIOLOGY O RDERABLES Performing Organization Address City/[facility]/ZIP Co de Phone Number [address] [phone] * CULTURE CSF+GRAM STAIN (05/25/2018 11:30 AM CDT) Culture No growth ESTEVAN 06/01/2018 3:34 AM CDT [facility] Gram Stain Rare Polymorphonuclear cells 06/01/2018 3:34 AM CDT [facility] Gram Stain No organisms seen 019 3:34 AM CDT [facility] Cerebral spinal fluid CEREBROSPINAL FLUID SPECIMEN / Unknown Collection / Unknown 05/25/2018 11:30 AM CDT 05/25/2018 11:52 AM CDT Zach Morin MD LAB - MICROBIOLOGY O RDERABLES Performing Organization Address City/[facility]/ZIP Co de Phone Number [facility] [address] [place] [address], [facility] [phone] * HERPES SIMPLEX 1+2 PCR CSF (05/25/2018 11:30 AM CDT) Herpes Simplex Virus 1 PCR CSF Not detected Not detected 05/25/2018 9:44 PM CDT [facility] Herpes Simplex Virus 2 PCR CSF Not detected Not detected 05/25/2018 9:44 PM CDT [facility] Microbiology CEREBROSPINAL FLUID SPECIMEN / Unknown Collection / Unknown 05/25/2018 11:30 AM CDT 05/25/2018 11:52 AM CDT Zach Morin MD LAB - MICROBIOLOGY O NARDA Performing Organization Address City/[facility] Co de Phone Number [facility] [address] [place] [address], [facility] [phone] * ANGIOTENSIN CONVERTING ENZYME CSF (05/25/2018 11:30 AM CDT) Angiotensin-Convert ing Enzyme CSF 0.9 0.0 - 2.5 U/L 05/28/2018 8:50 PM CDT [employer] [facility] ([facility]) Comment: This test was developed and its performance characteristics determined by [facility]. The U.S. Food and Drug Administration has not approved or cleared this test; however, FDA clearance or approval is not currently required for clinical use. The results are not intended to be used as the sole means for clinical diagnosis or patient management decisions. Performed by [facility], [address] [place] [address],[place] [address] [email or web address], Sahil Chin MD, Lab. Director Cerebral spinal fluid CEREBROSPINAL FLUID SPECIMEN / Unknown Collection / Unknown 05/25/2018 11:30 AM CDT 05/25/2018 11:52 AM CDT Zach Morin MD LAB - BODY FLUID ORD ERABLES Performing Organization Address [facility] Co de Phone Number [facility]) [address] [place] [address] * MYELIN BASIC PROTEIN CSF (05/25/2018 11:30 AM CDT) Myelin Basic Protein 1.62 0.00 - 5.50 ng/mL 05/28/2018 7:09 PM CDT [facility] ([facility]) Comment: INTERPRETIVE INFORMATION: Myelin Basic Protein Test developed and characteristics determined by [facility]. See Compliance Statement D: [facility]/CS Performed by [facility], [address] [place] [address] [email or web address], Sahil Chin MD, Lab. Director Cerebral spinal fluid CEREBROSPINAL FLUID SPECIMEN / Unknown Collection / Unknown 05/25/2018 11:30 AM CDT 05/25/2018 11:52 AM CDT Zach Morin MD LAB - BODY FLUID ORD ERABLES Performing Organization Address [facility] Co de Phone Number [facility]) [address] [place] [address] * CELL COUNT W DIFFERENTIAL CSF (05/25/2018 11:30 AM CDT) Color Fluid Colorless Colorless, Straw 05/25/2018 12:51 PM CDT [facility] Clarity Fluid Clear Clear 05/25/2018 12:51 PM CDT [facility] Volume Fluid 4.0 mL 05/25/2018 12:51 PM CDT [facility] WBC Calculation Fluid 498 /uL 05/25/2018 12:51 PM CDT [facility] RBC Calculation 0 /uL 9 12:51 PM CDT [facility] Xanthochromia Fluid Negative Negative 05/25/2018 12:51 PM CDT [facility] Differential Manual Differential to follow. 05/25/2018 12:51 PM CDT [facility] Cerebral spinal fluid CEREBROSPINAL FLUID SPECIMEN / Unknown Collection / Unknown 05/25/2018 11:30 AM CDT 05/25/2018 11:49 AM CDT Zach Morin MD LAB - BODY FLUID ORD ERABLES Performing Organization Address [facility] Co de Phone Number [address] [phone] * PROTEIN CSF (05/25/2018 11:30 AM CDT) Protein CSF 20 15 - 45 mg/dL 05/25/2018 12:14 PM CDT [facility] Cerebral spinal fluid CEREBROSPINAL FLUID SPECIMEN / Unknown Collection / Unknown 05/25/2018 11:30 AM CDT 05/25/2018 11:51 AM CDT Zach Morin MD LAB - BODY FLUID ORD ERABLES Performing Organization Address [facility] Co de Phone Number [address] [phone] * (ABNORMAL) GLUCOSE CSF (05/25/2018 11:30 AM CDT) Glucose CSF 147(H) 40 - 70 mg/dL 05/25/2018 12:10 PM CDT [facility] Cerebral spinal fluid CEREBROSPINAL FLUID SPECIMEN / Unknown Collection / Unknown 05/25/2018 11:30 AM CDT 05/25/2018 11:54 AM CDT Zach Morin MD LAB - BODY FLUID ORD ERABLES Performing Organization Address [facility] Co de Phone Number [address] [phone] * SYPHILIS ANTIBODY CASCADING REFLEX (05/25/2018 4:03 AM CDT) Treponema pallidum Antibody Non-react javier Non-react javier 05/25/2018 5:33 AM CDT [facility] Comment: No Laboratory evidence of syphilis infection. Note: Circulating antibodies may be low or undetectable in early infection. If recent exposure is suspected, re-draw sample in 2-4 weeks and repeat testing. Blood BLOOD SPECIMEN / Unknown Lab Venipuncture / Unknown 05/25/2018 4:03 AM CDT 05/25/2018 4:43 AM CDT Namita Raymond MD LAB - SEROLOGY ORDER NAZ [facility] [address] [phone] * NEUROMYELITIS OPTICA ANTIBODY (05/25/2018 4:03 AM CDT) NMO Antibody IgG <1.5 0.0 - 3.0 U/mL 05/28/2018 5:08 PM CDT [facility] ([facility]) Comment: Negative: 0.0 - 3.0 Positive: >3.0 Blood BLOOD SPECIMEN / Unknown Lab Venipuncture / Unknown 05/25/2018 4:03 AM CDT 05/25/2018 4:43 AM CDT Narrative [facility] ([facility]) - 05/28/2018 5:08 PM CDT Performed at: [address] [place] [address] [id number] Terminal Worker: Negro Sullivan MD, Phone: [phone] Namita Raymond MD LAB - SEROLOGY ORDER NAZ Performing Organization Address City/[facility] Co de Phone Number [facility] ([facility]) [address] [place] [address], [place] * HCG BETA BLOOD QUANTITATIVE (05/25/2018 4:03 AM CDT) Beta-hCG Total Quantitative <2 <5 mIU/mL 05/25/2018 5:18 AM CDT [facility] Comment: HCG Numeric Result Interpretation: Non- Females: < 5 mIU/mL Post-Menopausal Females: < 7 mIU/mL Blood BLOOD SPECIMEN / Unknown Lab Venipuncture / Unknown 05/25/2018 4:03 AM CDT 05/25/2018 4:43 AM CDT Monroe Wood MD LAB - CHEMISTRY DELLGarrison GRANDEELEN [facility] Organization Address City/State/ZIP Co de Phone Number [address] [phone] * MRI ORBITS OR FACE WWO CONTRAST [...] ve Non-react javier 05/24/2018 5:54 PM CDT [facility] Comment: Neither HIV-1 p24 Antigen nor HIV-1/HIV-2 Antibodies are detected. Blood BLOOD SPECIMEN / Unknown Venipuncture / Unknown 05/24/2018 5:08 PM CDT 05/24/2018 5:16 PM CDT Namita Raymond MD LAB - HEMATOLOGY ORD ERABLES [facility] [address] [place] [address] * Visual Almazan (05/24/2018 2:58 PM CDT) [...] Albumin Random Urine >1,540.0 Not Established mcg/mL [facility] Urine specimen (specimen) 10/30/2015 12:30 PM CDT 10/30/2015 12:48 PM CDT Tessie Pritchard APRN-FIBERGLASS CONTAINER WINDING OPERATOR LAB - URINE C HEMISTRY ORDERABLES [address] [phone] * LIPID PROFILE (10/30/2015 12:18 PM CDT) Only the most recent of2 resultswithin the time period is included. Cholesterol Total 152 <200 mg/dL [facility] HDL 56 >40 mg/dL [facility] Comment: ATP III Classification of HDL Cholesterol: <40 mg/dL: Considered a major risk factor. >60 mg/dL: Considered a negative risk factor. LDL Calculated 76 <100 mg/dL [facility] Comment: ATP III Classification of LDL Cholesterol: <100 mg/dL: Optimal 100 - 129 mg/dL: Near Optimal/Above Optimal 130 - 159 mg/dL: Borderline High 160 - 189 mg/dL: High >190 mg/dL: Very High Triglycerides 98 <150 mg/dL [facility] Comment: ATP III Classification of Triglycerides: <150 mg/dL: Normal 150 - 199 mg/dL: Borderline High 200 - 400 mg/dL: High >500 mg/dL: Very High Blood specimen (specimen) BLOOD SPECIMEN / Unknown 10/30/2015 12:18 PM CDT 10/30/2015 12:48 PM CDT Tessie Dolan Macho MUNOZ-FIBERGLASS CONTAINER WINDING OPERATOR LAB - BANK VAULT ATTENDANT RY ORDERABLES [address] [phone] * GLUCOSE - POINT OF CARE (AMB) [facility] (04/10/2015 9:21 AM WASTEWATER SUPERINTENDENT) Only the most recent of2 resultswithin the time period is included. Glucose POCT 214 mg/dL [facility] Capillary blood specimen (specimen) 04/10/2015 9:21 AM WASTEWATER SUPERINTENDENT Tessie Pritchard APRN-FIBERGLASS CONTAINER WINDING OPERATOR LAB - POINT O F CARE ORDERABLES Performing Organization Address [facility]/ZIP Co de Phone Number [facility] * INSULIN ANTIBODY (09/12/2014 3:01 PM CDT) Insulin Antibody <5.0 uU/mL [facility] ([facility]) Comment: This test is also known as insulin autoantibody or IAA. Reference Range: <5.0 Negative > or = 5.0 Positive Blood specimen (specimen) BLOOD SPECIMEN / Unknown 09/12/2014 3:01 PM CDT 09/12/2014 3:35 PM CDT Narrative [facility] ([facility]) - 09/21/2014 6:15 AM CDT Performed at: - [facility] [address] [place] [address] [id number] Terminal Worker: Demarco Henderson MD, Phone: [phone] Tessie Pritchard APRN-FIBERGLASS CONTAINER WINDING OPERATOR LAB - BANK VAULT ATTENDANT RY ORDERABLES [facility] ([place]) * GLUTAMIC ACID DECARBOXYLASE ([place]) ANTIBODY (09/12/2014 3:01 PM CDT) HAYLEY-65 <1.0 0.0 - 1.5 U/mL [facility] Blood specimen (specimen) BLOOD SPECIMEN / Unknown 09/12/2014 3:01 PM CDT 09/12/2014 3:35 PM CDT Narrative [facility] ([facility]) - 09/15/2014 5:15 PM CDT Performed at: [address] [place] [address] [id number] Terminal Worker: Sekou Dent MD, Phone: [phone] Tessie Pritchard AUDIOMETRIC TECHNICIAN-FIBERGLASS CONTAINER WINDING OPERATOR LAB - SEROLOG Y ORDERABLES Performing Organization Address City/[facility]/ZIP Co de Phone Number [facility]) * TISSUE TRANSGLUTAMINASE AB IGG (06/29/2014 4:51 PM CDT) [facility] TTG Antibody IgG 2 0 - 5 U/mL [facility]) Comment: Negative 0 - 5 Weak Positive 6 - 9 Positive >9 Blood specimen (specimen) BLOOD SPECIMEN / Unknown 06/29/2014 4:51 PM CDT 06/29/2014 5:26 PM CDT Narrative [facility]) - 07/01/2014 3:12 PM CDT Performed at: [address] [place] [address] [id number] Terminal Worker: Clemente Wiley PhD, Phone: [phone] Finn Clemens MD LAB - CHEMISTRY [place] ([facility]) * C-PEPTIDE (06/29/2014 4:51 PM CDT) [facility] C-Peptide 1.1 1.1 - 4.4 ng/mL [facility]) Comment:C-Peptide reference interval is for fasting patients. Blood specimen (specimen) BLOOD SPECIMEN / Unknown 06/29/2014 4:51 PM CDT 06/29/2014 5:26 PM CDT Narrative [facility] ([place]) - 07/02/2014 6:41 AM CDT Performed at: [address] [id number] Terminal Worker: Clemente Wiley PhD, Phone: [phone] Finn Clemens MD LAB - CHEMISTRY [facility] [facility] Performing Organization Address City/[facility]/ZIP Co de Phone Number [facility]) * (ABNORMAL) HEMOGLOBIN A1C (06/29/2014 4:51 PM CDT) Hemoglobin A1c 11.1(H) 4.4 - 6.3 % [facility] Estimated Average Glucose 272 mg/dL [facility] Comment: HbA1c Interpretation: Treatment target values recommended [...] Clemens MD LAB - CHEMISTRY [facility] [facility] [address] [phone] * VITAMIN B12 (06/29/2014 4:51 PM CDT) Vitamin B12 520 213 - 816 pg/mL [facility] Blood specimen (specimen) BLOOD SPECIMEN / Unknown 06/29/2014 4:51 PM CDT 06/29/2014 5:26 PM CDT Finn Clemens MD LAB - CHEMISTRY [facility] [address] [place] [address], [facility] [phone] Care Teams Nursing Home Assistant Administrator Relationship Specialty Start Date End Date Jessie Dickson, AUDIOMETRIC TECHNICIAN-FIBERGLASS CONTAINER WINDING OPERATOR [address], [place] [phone] PCP - General 06/30/14
--- OUTSIDE RECORDS SUMMARY | 2024-04-04 10:17 | XMS_ITS | Clinical Summary ---
Author Organization [facility] [employer] Address [address] [place] [address] Care Team Providers Care Sr. Pricing Analyst Name Role Phone Jessie Dickson SITE SAFETY MANAGER-GAS LEAK INSPECTOR Primary Care Pro vider Source Comments [facility],non-owned Affiliates and Associated Physician Practices is amultiple site organization consisting of ambulatory clinics and hospital sitesin [place], [place], [place] and [place]. This disclosure is being madepursuant to the Care Everywhere program and may not contain all information available regarding this patient. Last updated 17.[facility] [employer] Allergies Active Allergy Reactions Criticality Noted Date [...] 200 Each 11 06/09/2018 Active ergocalciferol (DRISDOL) 57418 units capsule Take 1 capsule by mouth [...] procedure) 2 tablet 01/21/2022 Active HYDROcodone-acetamino phen (Friendship) 5-325 MG tablet Take 1 (one) tablet [...] Comments Blood Pressure 145/85 02/05/2022 12:[address] irizarry aware; ok to d/cv Pulse 74 02/05/2022 11:55 AM ATOMIC PHYSICS PROFESSOR Temperature 36.8 C (98.2 F) 09/13/2019 8:22 AM CDT Respiratory Rate 12 02/05/2022 11:5 0 AM ATOMIC PHYSICS PROFESSOR Oxygen Saturation 100% 02/05/2022 11: 55 AM ATOMIC PHYSICS PROFESSOR Inhaled Oxygen Concentration - - Weight 108.9 [...] CARE (AMB) [facility] (11/01/2018 10:11 AM CDT) [facility] Hemoglobin A1c POCT 8.5% BLOOD SPECIMEN / Unknown 11/01/2018 10:11 AM CDT Tessie Magdaleno Carlitosliv SITE SAFETY MANAGER-GAS LEAK INSPECTOR LAB - POINT O F CARE ORDERABLES * HEPATITIS C AB SCREEN RFLX NAAT QUANT (05/28/2018 12:13 PM CDT) [facility] Hepatitis C Antibody Non-react javier Non-reac tive 05/28/2018 1:18 PM CDT [facility] Comment: Hepatitis C Antibody [...] Thornton MD LAB - CHEMISTRY [place] [facility] [address] [phone] * HIV-1 HIV-2 ANTIGEN/ANTIBODY (05/24/2018 5:08 PM CDT) [facility] HIV Antigen/Antibod y 1 & 2 Non-reacti ve Non-react javier 05/24/2018 5:54 PM CDT [facility] Comment: Neither HIV-1 p24 Antigen nor HIV-1/HIV-2 Antibodies are detected. Blood BLOOD SPECIMEN / Unknown Venipuncture / Unknown 05/24/2018 5:08 PM CDT 05/24/2018 5:16 PM CDT Namita Raymond MD LAB - HEMATOLOGY [facility] [address] [phone] from Last 3 Months or Most Recently Relevant to Health Maintenance Advance Directives * Full Code (Latest Code Status on File) Date Activated Date Inactivated Comments 05/25/2018 12:57 AM 05/28/2018 5:22 PM * Full Code Date Activated Date Inactivated Comments 05/24/2018 6:24 PM 05/25/2018 12:57 AM Care Teams Sr. Pricing Analyst Relationship Specialty Start Date End Date Jessie Dickson APRN-GAS LEAK INSPECTOR [address] [place] [phone] PCP - General 06/30/14
--- OUTSIDE RECORDS SUMMARY | 2024-04-04 10:17 | XMS_ITS | Encounter Summary ---
Author Organization [facility] Address [address] [place] [address] Care Team Providers Care Cuprous Chloride Operator Name Role Phone Jessie Dickson GLOBAL COMPENSATION ANALYST-GRINDER OPERATOR Primary Care Pro vider Encounter Details Date Type Department Care Team (Late st Contact Info) Description 05/25/2018 [facility]am [facility] [place] [address] Regina Fritz MD [facility] [place] [address] Social History Tobacco Use Types Packs/Day Years [...] on filedocumented in this encounter Care Teams Cuprous Chloride Operator Relationship Specialty Start Date End Date Jessie Dickson, TAMMY-GRINDER OPERATOR [address] [place] [phone] PCP - General 06/30/14 documented as of this encounter
--- OUTSIDE RECORDS SUMMARY | 2024-04-04 10:19 | XMS_ITS | Clinical Summary ---
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 ([facility]) 03/05/2021 Diabetic retinopathy associa graeme with type 2 diabetes mellitus 06/12/2015 Hyperlipidemia 06/29/2014 Type 2 diabetes mellitus 09/17/2012 Resolved Problems Problem Noted Date Diagnosed Date Resolved Date 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 04/09/2022 Acute retrobulbar neuritis 05/24/2018 0 04/09/2022 Blurring of visual image 05/24/2018 Vitamin D deficiency disease 09/17/2012 04/09/2022 Diabetes mellitus 06/21/2010 04/09/2022 Encounters Date Type Department Care Team Description 03/29/2024 10:00 AM BUNCH BREAKER - 03/29/2024 11:59 PM [facility] Hospital Encounter [facility] [address] [place] [address] Pre-transplant evaluation for kidney transplant; ESRD (end stage renal disease) (CMS/[facility]) ([facility]) Discharge Disposition: Discharge to home or self care 03/22/2024 Documentation [facility] Transplant Kidney [address] [facility] [address] Mailstop [phone] [place] [address] Almita Rizzo, RN Waitlist Maintenance 02/29/2024 Telephone [facility] Trans[facility] Kidney [address] [facility] [address] Mailstop [phone] [place] [address] Almita Rizzo RN Waitlist Maintenance 02/26/2024 10:00 AM BUNCH BREAKER - 02/26/2024 11:59 PM BUNCH BREAKER Hospital Encounter [address] [address] Pre-transplant evaluation for kidney transplant; ESRD (end stage renal disease) (CMS/HCC) ([facility]) Discharge Disposition: Discharge to home or self care 02/26/2024 7:21 AM BUNCH BREAKER - 02/26/2024 11:59 PM BUNCH BREAKER Hospital Encounter [facility] [address] [place] [address] Pre-kidney transplant, patient on transplant list; ESRD (end stage renal disease) (CMS/HCC) ([facility]) Discharge Disposition: Discharge to home or self care 02/18/2024 Documentation [facility] Transplant Kidney [address] [facility] [address] Mailstop [phone] [place] [address] Anjali Gastelum Appointment/Schedul es 02/18/2024 Documentation [facility] Transplant Kidney [address] [facility] [address] Mailstop [phone] [place] [address] Almita Rizzo RN Waitlist Maintenance 02/16/2024 11:25 AM BUNCH BREAKER Lab [facility] ([facility]) [address] [place] [phone] Pre-kidney transplant, patient on transplant list; ESRD (end stage renal disease) (CMS/HCC) ([facility]) 01/26/2024 10:00 AM BUNCH BREAKER - 01/26/2024 11:59 PM BUNCH BREAKER Hospital Encounter [address] [address] Pre-transplant evaluation for kidney transplant; ESRD (end stage renal disease) (CMS/HCC) ([facility]) Discharge Disposition: Discharge to home or self care 01/25/2024 Telephone [facility] Transplant Kidney [address] [facility] [address] Mailstop [phone] [place] [address] Kathryn Still 01/08/2024 2:57 AM BUNCH BREAKER - 01/08/2024 9:59 AM BUNCH BREAKER [facility] Emergency Department [address] [facility] [place] [address] Amauri Greene MD PhD Orr, Brandan Martinez [...] History Date Comments Type 2 diabetes mellitus ([facility]) 09/17/2012 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 ([facility]) ([facility]) 03/05/2021 Hypertension 2021 Family History Medical History [...] on file Legal Sex Female 11:50 PM BUNCH BREAKER Gender Identity Not on file Sexual Orientation Not on file Obstetrics History Para Term AB IAB SAB Ectopic Multiple Livin g Live Births 3 3 2 Date Outcome GA Total Labor Labor//3rd Weight Sex Type Anes PTL Yris A1 A5 Name Clin Para Para Para Last Filed Vital Signs Vital Sign Reading Time Taken Comments Blood Pressure 165/85 02/26/2024 10:12 AM BUNCH BREAKER Pulse 100 02/26/2024 10:12 AM BUNCH BREAKER Temperature 36.7 C (98.1 F) 01/08/2024 9:45 AM BUNCH BREAKER Respiratory Rate 16 01/08/2024 8:30 AM BUNCH BREAKER Oxygen Saturation 97% 01/08/2024 9:30 AM BUNCH BREAKER Inhaled Oxygen Concentration - - Weight 90.7 kg (200 lb) 02/26/2024 8:40 AM BUNCH BREAKER Height 160 cm (5' 3 ) 02/26/2024 8:40 AM BUNCH BREAKER Body Mass Index 35.43 02/26/2024 8:40 AM BUNCH BREAKER Plan of Treatment Health Maintenance Due Date Last Done Comments Albumin Creatinine Ratio, Urine 1978 Cervical Cancer Screening 1978 Depression Screening 1978 Dilated Eye Exam 1978 Foot Exam 1978 Regular Well Visit/Exam 18-64 1996 Lipid Panel 04/30/2022 04/30/2021, 05/22/2018 Influenza Vaccine (#1) 2023 02/03/2023, 2021 Breast Cancer Screening-Mammogram 03/19/2024 03/19/2023, 06/04/2021 Hemoglobin A1C 08/16/2024 02/16/2024, 12/09/2022, 05/23/2022, Additional history exists eGFR 02/15/2025 02/16/2024, 12/24, 12/01/2023, Additional history exists DTaP/Tdap/Td Vaccine (2 - Td or Tdap) 07/10/2027 07/09/2017 Colon Cancer Screening-Colonoscopy 07/20/2033 07/21/2023 Pneumococcal vaccine <65 Completed 024, 04/18/2021, 03/03/2018, Additional history exists Hepatitis B Screening Completed 02/16/2024 , 2023, 10/06/2022, Additional history exists Hepatitis C Screening Completed 02/16/2024 , 01/30/2023, 04/30/2021 HPV Vaccines Aged Out No longer eligi ble based on patient's age to complete this topic Medical Devices Implanted Type Area Librarian Special Library Device Identifier Shelf Expiration Date Model / Serial / Lot [employer] [id number] [place] 15fr 62cm 2 Cuff Radiopaque Peritoneal Curl Catheter - Sn/A - [id number] Implanted:Qty : 1 on 03/14/2021 by Gildardo Leggett MD at [facility] Catheter N/A: Abdomen [employer] 07/01/2025 [id number] / N/A / [id number] Description:Peritoneal Dialy sis Catheter, Curl Cath, 2 Cuffs Graft Vasc 45cm 4-6mm [place] Acuseal Eptfe 3 Layer Kink Rst - [id number] - [id number] Implanted:Qty : 1 on 05/08/2022 by Uche Katz MD at [facility] Graft Left: Arm Wl [employer] [id number] 05/21/2024 [id number] / [id number] / 00 Procedures Procedure Name Priority Date/Time Associated Diagnosis Comments HLA ANTIBODY SCREEN BY PRA OR SAB PER SCHEDULE (CLASS I AND CLASS II) Routine 03/29/2024 10:00 AM BUNCH BREAKER Pre-transplant evaluation for kidney transplant ESRD (end stage renal disease) (CMS/HCC) (HCC) STRESS ECHO PHARMACOLOGIC W DOPPLER/CF W CONTRAST Routine 02/26/2024 10:12 AM BUNCH BREAKER Pre-kidney transplant, patient on transplant list ESRD (end stage renal disease) (CMS/HCC) (HCC) HLA ANTIBODY SCREEN BY PRA OR SAB PER SCHEDULE (CLASS I AND CLASS II) Routine 02/26/2024 10:00 AM BUNCH BREAKER Pre-transplant evaluation for kidney transplant ESRD (end stage renal disease) (CMS/HCC) (HCC) EGFR Routine 02/16/2024 11:34 AM BUNCH BREAKER Pre-kidney transplant, patient on transplant list ESRD (end stage renal disease) (CMS/HCC) (HCC) DIFFERENTIAL AUTO Routine 02/16/2024 11: 34 AM BUNCH BREAKER Pre-kidney transplant, patient on transplant list ESRD (end stage renal disease) (CMS/HCC) (HCC) CBC WITH AUTO DIFFERENTIAL Routine 02/16/2024 11:34 AM BUNCH BREAKER Pre-kidney transplant, patient on transplant list ESRD (end stage renal disease) (CMS/HCC) (HCC) COMPREHENSIVE METABOLIC PANEL Routine 02/16/2024 11:34 AM BUNCH BREAKER Pre-kidney transplant, patient on transplant list ESRD (end stage renal disease) (CMS/HCC) (HCC) PHOSPHORUS Routine 02/16/2024 11:34 AM BUNCH BREAKER Pre-kidney transplant, patient on transplant list ESRD (end stage renal disease) (CMS/HCC) (HCC) PTH Routine 02/16/2024 11:34 AM BUNCH BREAKER Pre-kidney transplant, patient on transplant list ESRD (end stage renal disease) (CMS/HCC) (HCC) HEMOGLOBIN A1C Routine 02/16/2024 11:34 AM BUNCH BREAKER Pre-kidney transplant, patient on transplant list ESRD (end stage renal disease) (CMS/HCC) (HCC) HIV 1/2 ANTIBODY PLUS P24 ANTIGEN Routine 02/16/2024 11:34 AM BUNCH BREAKER Pre-kidney transplant, patient on transplant list ESRD (end stage renal disease) (CMS/HCC) (HCC) HEPATITIS B SURFACE ANTIBODY (IMMUNE STATUS) Routine 02/16/2024 11:34 AM BUNCH BREAKER Pre-kidney transplant, patient on transplant list ESRD (end stage renal disease) (CMS/HCC) (HCC) HEPATITIS B SURFACE ANTIGEN Routine 02/16/2024 11:34 AM BUNCH BREAKER Pre-kidney transplant, patient on transplant list ESRD (end stage renal disease) (CMS/HCC) (HCC) HEPATITIS C ANTIBODY Routine 02/16/2024 11:34 AM BUNCH BREAKER Pre-kidney transplant, patient on transplant list ESRD (end stage renal disease) (CMS/HCC) (HCC) HEPATITIS B CORE ANTIBODY, TOTAL Routine 02/16/2024 11:34 AM BUNCH BREAKER Pre-kidney transplant, patient on transplant list ESRD (end stage renal disease) (CMS/HCC) (HCC) HLA ANTIBODY SCREEN - SAB (CLASS I AND CLASS II) Routine 01/26/2024 10:00 AM BUNCH BREAKER Pre-transplant evaluation for kidney transplant ESRD (end stage renal disease) (CMS/HCC) (HCC) HLA ANTIBODY SCREEN BY PRA OR SAB PER SCHEDULE (CLASS I AND CLASS II) Routine 01/26/2024 10:00 AM BUNCH BREAKER Pre-transplant evaluation for kidney transplant ESRD (end stage renal disease) (CMS/HCC) (HCC) POCT GLUCOSE DEVICE Routine 01/08/2024 9 :44 AM BUNCH BREAKER TROPONIN I HIGH-SENSITIVITY 4-HOUR Timed 01/08/2024 7:44 AM BUNCH BREAKER POCT GLUCOSE DEVICE Routine 01/08/2024 7 :43 AM BUNCH BREAKER POCT GLUCOSE DEVICE Routine 01/08/2024 5 :48 AM BUNCH BREAKER CRITICAL RESULT CALLBACK CARDIO CHEM Timed 01/08/2024 5:47 AM BUNCH BREAKER TROPONIN I HIGH-SENSITIVITY 2-HOUR Timed 01/08/2024 5:47 AM BUNCH BREAKER MDI INSTRUCT STAT 01/08/2024 4:48 AM BUNCH BREAKER EGFR STAT 01/08/2024 3:39 AM BUNCH BREAKER DIFFERENTIAL AUTO STAT 01/08/2024 3:3 9 AM BUNCH BREAKER TROPONIN I HIGH-SENSITIVITY SERIES (BASELINE, 2HR, 4HR, 6HR) STAT 01/08/2024 3:39 AM BUNCH BREAKER CBC WITH AUTO DIFFERENTIAL STAT 01/08/2024 3:39 AM BUNCH BREAKER COMPREHENSIVE METABOLIC PANEL STAT 01/08/2024 3:39 AM BUNCH BREAKER XR CHEST PA LATERAL 2 VIEWS ED 01/07/2024 10:56 PM BUNCH BREAKER ECG 12-LEAD STAT 01/07/2024 10:21 PM BUNCH BREAKER POCT GLUCOSE DEVICE Routine 01/07/2024 1 0:21 PM BUNCH BREAKER COLONOSCOPY 07/21/2023 10:23 AM CDT HM MAMMOGRAPHY Routine 06/04/2021 LIPID PANEL Routine 04/30/2021 12:22 PM BUNCH BREAKER Pre-transplant evaluation for kidney transplant End stage renal disease (CMS/HCC) (HCC) from Last 3 Months or Most Recently Relevant to Health Maintenance Results * HLA Antibody Screen by PRA or SAB per Schedule (Class I and Class II) (03/29/2024 10:00 AM BUNCH BREAKER) Blood 03/29/2024 10:0 0 AM BUNCH BREAKER Narrative HISTOTRAC - BUNCH BREAKER Sample received in lab. Single Antigen Antibody Screen ordered. us Bashir Alston MD LAB BLOOD ORDERABLES Final R esult HISTOTRAC * STRESS ECHO PHARMACOLOGIC W DOPPLER/CF W CONTRAST (02/26/2024 10:12 AM BUNCH BREAKER) LV EF 58 % CARDIOREPORT Anatomical Region Laterality Modality Ultrasound 02/26/2024 8:00 AM BUNCH BREAKER Narrative 02/26/2024 11:07 AM BUNCH BREAKER Patient name: Bakari Smith Date of test: 02/26/2024 Hospital #: 0 Location: [facility] Interpreted by: Kip Pena M.D. Ph.D. Gaming Director: Lainey Oh RDCS RN: Hilda Monk RN Reason for Test: pre-kidney transplant evaluation Study quality: Technically good Referring Physician: TONYA HAMMONDS MD Contrast Agent: 0.45 ml Definity Administered, (1.05 ml wasted). BASELINE STUDY: Wall Motion Scoring (1=Normal 2=Hypo 3=Akinetic 4=Dyskin./Aneurysm 0=Not visualized) Parasternal Long Sheyenne:MAS=1 BAS=1 MIL=1 RENATO=1 Parasternal Short Sheyenne:MAS=1 MIS=1 ME=1 MIL=1 MAL=1 MA=1 Apical 4 Chambers:=1 MIS=1 BIS=1 BAL=1 MAL=1 AL=1 AC=1 Apical 2 Chambers:AI=1 ME=1 BI=1 BA=1 MA=1 AA=1 AC=1 Ejection Fraction: [...] 2=Hypo 3=Akinetic 4=Dyskin./Aneurysm 0=Not visualized) Parasternal Long Sheyenne:MAS=1 BAS=1 MIL=1 RENATO=1 Parasternal Short Sheyenne:MAS=1 MIS=1 ME=1 MIL=1 MAL=1 MA=1 Apical 4 Chambers:=1 MIS=1 BIS=1 BAL=1 MAL=1 AL=1 AC=1 Apical 2 Chambers:AI=1 ME=1 BI=1 BA=1 MA=1 AA=1 AC=1 Intravenous dobutamine [...] Ph.D. By signing this report, the attending adaptive physical education specialist certifies that he or she has personally supervised and interpreted the echocardiogram and has reviewed and or edited and agrees with the written comments contained within the report. Procedure Note Kip Pena MD PhD - 02/26/2024 Patient name: Bakari Smith Date of test: 02/26/2024 Hospital #: 0 Location: [facility] Interpreted by: Kip Pena M.D. Ph.D. Gaming Director: Lainey Oh RDCS RN: Hilda Monk RN Reason for Test: pre-kidney transplant evaluation Study quality: Technically good Referring Physician: TONYA HAMMONDS MD Contrast Agent: 0.45 ml Definity Administered, (1.05 ml wasted). BASELINE STUDY: Wall Motion Scoring (1=Normal 2=Hypo 3=Akinetic 4=Dyskin./Aneurysm 0=Not visualized) Parasternal Long Sheyenne:MAS=1 BAS=1 MIL=1 RENATO=1 Parasternal Short Sheyenne:MAS=1 MIS=1 ME=1 MIL=1 MAL=1 MA=1 Apical 4 Chambers:=1 MIS=1 BIS=1 BAL=1 MAL=1 AL=1 AC=1 Apical 2 Chambers:AI=1 ME=1 BI=1 BA=1 MA=1 AA=1 AC=1 Ejection Fraction: [...] 2=Hypo 3=Akinetic 4=Dyskin./Aneurysm 0=Not visualized) Parasternal Long Sheyenne:MAS=1 BAS=1 MIL=1 RENATO=1 Parasternal Short Sheyenne:MAS=1 MIS=1 ME=1 MIL=1 MAL=1 MA=1 Apical 4 Chambers:=1 MIS=1 BIS=1 BAL=1 MAL=1 AL=1 AC=1 Apical 2 Chambers:AI=1 ME=1 BI=1 BA=1 MA=1 AA=1 AC=1 Intravenous dobutamine [...] Ph.D. By signing this report, the attending adaptive physical education specialist certifies that he or she has personally supervised and interpreted the echocardiogram and has reviewed and or edited and agrees with the written comments contained within the report. us Tonya Hammonds MD CV ECHO PROCEDURES Final Result * HLA Antibody Screen by PRA or SAB per Schedule (Class I and Class II) (02/26/2024 10:00 AM BUNCH BREAKER) Blood 02/26/2024 10:0 0 AM BUNCH BREAKER Narrative HISTOTRAC - BUNCH BREAKER Sample received in lab and stored. No testing performed at this time. us Bashir Alston MD LAB BLOOD ORDERABLES Final R esult HISTOTRAC * (ABNORMAL) eGFR (02/16/2024 11:34 AM BUNCH BREAKER) eGFR 4(L) >=60 mL/min/1. 73 m2 Comment: [...] reviewed 2020. Blood 02/16/2024 11:3 4 AM BUNCH BREAKER 02/16/2024 12:02 PM BUNCH BREAKER us Tonya Hammonds MD LAB BLOOD ORDERABLE S Final Result [facility] Department [place] [address] * Differential, auto (02/16/2024 11:34 AM BUNCH BREAKER) Neutrophil abs 5.1 1.5 - 6.5 K/cumm Imm gran abs 0.1 0.0 - 0.1 K/cumm [facility] Lymphocyte abs 2.0 0.8 - 3.3 K/cumm [facility] Monocyte abs 0.6 0.2 - 0.8 K/cumm [facility] Eosinophil abs 0.1 0.0 - 0.5 K/cumm [facility] Basophil abs 0.0 0.0 - 0.1 K/cumm [facility] Neutrophil pct 64.7 % [facility] Comment: Interpretive Data Percent cell count reference ranges are not reported, since discordance with absolute values may lead to misinterpretation of CBC data. Current Interpretive Data was last revised on 2017. Imm gran pct 0.6 % [facility] Comment: Interpretive Data Percent cell count reference ranges are not reported, since discordance with absolute values may lead to misinterpretation of CBC data. Current Interpretive Data was last revised on 2017. Lymphocyte pct 25.3 % [facility] Comment: Interpretive Data Percent cell count reference ranges are not reported, since discordance with absolute values may lead to misinterpretation of CBC data. Current Interpretive Data was last revised on 2017. Monocyte pct 7.3 % [facility] Comment: Interpretive Data Percent cell count reference ranges are not reported, since discordance with absolute values may lead to misinterpretation of CBC data. Current Interpretive Data was last revised on 2017. Eosinophil pct 1.8 % [facility] Comment: Interpretive Data Percent cell count reference ranges are not reported, since discordance with absolute values may lead to misinterpretation of CBC data. Current Interpretive Data was last revised on 2017. Basophil pct 0.3 % [facility] Comment: Interpretive Data Percent cell count reference ranges are not reported, since discordance with absolute values may lead to misinterpretation of CBC data. Current Interpretive Data was last revised on 2017. Blood 02/16/2024 11:3 4 AM BUNCH BREAKER 02/16/2024 11:45 AM BUNCH BREAKER Tonya Hammonds MD LAB BLOOD ORDERABLE S Final Result Performing Organization Address [facility] Co de Phone Number [facility] Department [place] [address] * HIV 1/2 Antibody plus p24 Antigen Blood (02/16/2024 11:34 AM BUNCH BREAKER) [facility] [address] HIV 1/2 ab + p24 ag Nonreactive Nonreactive Comment:Nonreactive for HIV- 1 antigen and HIV-1/HIV-2 antibodies. No laboratory evidence of HIV infection. If acute HIV infection is suspected, consider testing for HIV-1 RNA. Current interpretive data was last revised on 21. Blood 02/16/2024 11:3 4 AM BUNCH BREAKER 02/16/2024 11:45 AM BUNCH BREAKER us Tonya Hammonds MD LAB MICROBIOLOGY - GENERAL ORDERABLES Final Result Performing Organization Address City/[facility] Co de Phone Number [facility] Department [place] [address] * (ABNORMAL) CBC with auto differential (02/16/2024 11:34 AM BUNCH BREAKER) Pathologist [facility] [place] WBC 7.8 3.8 - 9.9 K/cumm Hgb 8.6(L) 11.9 - 15.5 g/dL [facility] Hct 28.3(L) 35.6 - 45.5 % [facility] Plt 265 150 - 400 K/cumm [facility] MPV 10.2 9.1 - 12.3 fL [facility] RBC 3.24(L) 3.90 - 5.20 M/cumm [facility] MCV 87.3 81.3 - 96.4 fL [facility] MCH 26.5(L) 27.1 - 33.3 pg [facility] MCHC 30.4(L) 32.3 - 35.7 g/dL [facility] RDW CV 14.9 11.1 - 14.9 % [facility] RDW SD 48.1 35.7 - 48.1 fL [facility] NRBC abs 0.00 0.00 - 0.01 K/cumm [facility] Blood 02/16/2024 11:3 4 AM BUNCH BREAKER 02/16/2024 11:45 AM BUNCH BREAKER us Tonya Hammonds MD LAB BLOOD ORDERABLE S Final Result Performing Organization Address City/[facility]/ZIP Co de Phone Number [facility] Department [place] [address] * Hepatitis C antibody Blood (02/16/2024 11:34 AM BUNCH BREAKER) Pathologist [facility] [place] Hep C Ab Nonreactive Nonreactive Comment:Antibodies to HCV no t detected. Does NOT exclude the possibility of recent exposure to HCV. Current interpretive data was last revised on 21 Blood 02/16/2024 11:3 4 AM BUNCH BREAKER 02/16/2024 11:45 AM BUNCH BREAKER Tonya Hammonds MD LAB MICROBIOLOGY - GENERAL ORDERABLES Final Result [facility] [place] [address] * Hepatitis B core antibody, total Blood (02/16/2024 11:34 AM BUNCH BREAKER) Hep B core IgG/IgM Nonreactive Nonreactive Blood 02/16/2024 11:3 4 AM BUNCH BREAKER 02/16/2024 11:45 AM BUNCH BREAKER us Tonya Hammonds MD LAB MICROBIOLOGY - GENERAL ORDERABLES Final Result Performing Organization Address City/State/[facility] [place] [address] * Hepatitis B surface antibody (immune status) Blood (02/16/2024 11:34 AM BUNCH BREAKER) Pathologist [facility] [place] HBsAb (immune status) Reactive Comment:This result is consi stent with immunity to Hepatitis B Virus when used in the setting of routine screening. Current interpretive data was last revised on 21 HBsAb (immune status) index 221.0 mIUnits/m L [facility] Blood 02/16/2024 11:3 4 AM BUNCH BREAKER 02/16/2024 11:45 AM BUNCH BREAKER us Tonya Hammonds MD LAB MICROBIOLOGY - GENERAL ORDERABLES Final Result [facility] Department [place] [address] * Hepatitis B Surface Antigen Blood (02/16/2024 11:34 AM BUNCH BREAKER) Pathologist [facility] [place] HepBsAg Nonreactive Nonreactive Blood 02/16/2024 11:3 4 AM BUNCH BREAKER 02/16/2024 11:45 AM BUNCH BREAKER us Tonya Hammonds MD LAB MICROBIOLOGY - GENERAL ORDERABLES Final Result [facility] Department [place] [address] * (ABNORMAL) Phosphorus (02/16/2024 11:34 AM BUNCH BREAKER) [facility] [address] Phosphorus, pl 5.6(H) 2.3 - 4.5 mg/dL Blood 02/16/2024 11:3 4 AM BUNCH BREAKER 02/16/2024 11:45 AM BUNCH BREAKER Tonya Hammonds MD LAB BLOOD ORDERABLE S Final Result Performing Organization Address City/[facility] Co de Phone Number [facility] [place] [address] * (ABNORMAL) PTH (02/16/2024 11:34 AM BUNCH BREAKER) [facility] [address] PTH 335(H) 15 - 65 pg/mL Blood 02/16/2024 11:3 4 AM BUNCH BREAKER 02/16/2024 11:45 AM BUNCH BREAKER Tonya Hammonds MD LAB BLOOD ORDERABLE S Final Result Performing Organization Address City/[facility] Co de Phone Number [facility] Department [place] [address] * (ABNORMAL) Hemoglobin A1c (02/16/2024 11:34 AM BUNCH BREAKER) [facility] [address] Hgb A1C 6.2(H) 4.0 - 5.6 % Estimated Average Glucose 131 mg/dL [facility] Comment: The ADA recommends reporting an estimated Average Glucose (eAG) with all Hemoglobin A1c results using the equation derived from a study of 507 normal and diabetic adults. Minority populations were underrepresented and children were not included. (Diabetes Care 2020; 43(S1): S66-S76). The eAG is not equivalent to a fasting glucose. Blood 02/16/2024 11:3 4 AM BUNCH BREAKER 02/16/2024 11:45 AM BUNCH BREAKER us Tonya Hammonds MD LAB BLOOD ORDERABLE S Final Result [facility] Department [place] [address] * (ABNORMAL) Comprehensive metabolic panel (02/16/2024 11:34 AM BUNCH BREAKER) Sodium 140 135 - 145 mmol/L Potassium, pl 4.4 3.3 - 4.9 mmol/L [facility] Chloride 102 97 - 110 mmol/L [facility] CO2 28 22 - 32 mmol/L [facility] Anion gap 10 2 - 15 mmol/L [facility] BUN 46(H) 6 - 25 mg/dL [facility] Creatinine 10.77(H) 0.60 - 1.10 mg/dL [facility] [facility] Glucose 223(H) 70 - 199 mg/dL [facility] Comment: Interpretive Data Fasting glucose >/= 126 [...] Calcium 8.8 8.5 - 10.3 mg/dL [facility] Bilirubin, total 0.2 0.1 - 1.2 mg/dL [facility] Protein, pl 6.8 6.5 - 8.5 g/dL [facility] Albumin 3.1(L) 3.5 - 5.0 g/dL [facility] Alk phos 233(H) 40 - 130 Units/L [facility] ALT 57(H) 7 - 45 Units/L [facility] AST 50(H) 10 - 45 Units/L [facility] Blood 02/16/2024 11:3 4 AM BUNCH BREAKER 02/16/2024 11:45 AM BUNCH BREAKER us Tonya Hammonds MD LAB BLOOD ORDERABLE S Final Result [facility] Department [place] [address] * HLA Antibody Screen by PRA or SAB per Schedule (Class I and Class II) (01/26/2024 10:00 AM BUNCH BREAKER) Blood 01/26/2024 10:0 0 AM BUNCH BREAKER Narrative HISTOTR[facility] - BUNCH BREAKER Sample received in lab. Single Antigen Antibody Screen ordered. us Bashir Alston MD LAB BLOOD ORDERABLES Final R esult [facility] * HLA Antibody Screen - SAB (Class I and Class II) (01/26/2024 10:00 AM BUNCH BREAKER) Class I Treatment EDTA HISTOT[facility] Class I [...] per SSO. HISTOTRAC 01/26/2024 10:0 0 AM BUNCH BREAKER 01/29/2024 1:28 PM BUNCH BREAKER Narrative HISTOTRAC - 01/29/2024 1:28 PM BUNCH BREAKER Single-antigen HLA antibody screen is performed on serum samples using a method developed and validated by the [facility] HLA laboratory based on an FDA-approved IVD kit (LABScreen Single-Antigen, [employer], [place], [place]). All patient serum samples are pretreated with EDTA before the screen to prevent complement interference. Additional serum treatments, such as adsorption and DTT treatment, may be performed as indicated. Interpretive comments: Low risk: MFI [id number]. Moderate risk: MFI [id number]. Increased risk: MFI >/= 5000. The presence [...] antigens to avoid. Testing performed at the [facility], [facility], [facility], [place], [address]. [facility] # [id number]. Amber Berry, Ph.D., Steam And Power Superintendent, HLA Laboratory Jonathan Brennan M.D., Ph.D., Engagement Quality Consultant, HLA Laboratory Rehana Alarcon, Ph.D., CLIA Engagement Quality Consultant, [facility] Clinical Laboratories Current methodology and interpretive comments last revised on 03/20/2022. us Bashir Alston MD LAB BLOOD ORDERABLES Final R esult Performing Organization Address [facility] Co de Phone Number H[facility] * POCT glucose (01/08/2024 9:44 AM BUNCH BREAKER) Glucose, POC 97 70 - 199 mg/dL Blood 01/08/2024 9:44 AM BUNCH BREAKER 01/08/2024 9:44 AM BUNCH BREAKER us Brandan Orr MD LAB POCT ORDERABLES - DEV ICE Final Result Performing Organization Address [facility] Co de Phone Number [facility] Department [place] [address] * (ABNORMAL) Troponin I high-sensitivity 4-hour (01/08/2024 7:44 AM BUNCH BREAKER) Trop I hs 131(H) <=17 ng/L Comment: Interpretive Data For further hscTnI resources including the diagnostic algorithm and an aid in interpretation, copy and paste this link: https://bjhlab.testcatalog.org/show/hsTrop-1 Current Interpretive Data last revised 2019. Trop I hs pct delta 8 % [facility] Trop I hs interp Equivocal [facility] Blood 01/08/2024 7:44 AM BUNCH BREAKER 01/08/2024 7:53 AM BUNCH BREAKER us Stacey Thomas MD LAB BLOOD ORDERABLES Final Result Performing Organization Address [facility] Co de Phone Number [facility] [place] [address] * POCT glucose (01/08/2024 7:43 AM BUNCH BREAKER) Glucose, POC 92 70 - 199 mg/dL Blood 01/08/2024 7:43 AM BUNCH BREAKER 01/08/2024 7:43 AM BUNCH BREAKER us Brandan Orr MD LAB POCT ORDERABLES - DEV ICE Final Result Performing Organization Address [facility] Co de Phone Number [facility] [place] [address] * POCT glucose (01/08/2024 5:48 AM BUNCH BREAKER) Glucose, POC 109 70 - 199 mg/dL Blood 01/08/2024 5:48 AM BUNCH BREAKER 01/08/2024 5:48 AM BUNCH BREAKER us Amauri Greene MD PhD LAB POCT ORDERABLES - DEVICE Final Result Performing Organization Address [facility] de Phone Number [facility] [employer] [place] [address] * (ABNORMAL) Troponin I high-sensitivity 2-hour (01/08/2024 5:47 AM BUNCH BREAKER) Trop I hs 140(H) <=17 ng/L Comment: reviewed Interpretive Data For further hscTnI resources including the diagnostic algorithm and an aid in interpretation, copy and paste this link: https://bjhlab.testcatalog.org/show/hsTrop-1 Current Interpretive Data last revised 2019. Trop I hs pct delta 16(C) % [facility] Comment:reviewed Trop I hs interp Significa nt(C) [facility] Comment:reviewed Blood 01/08/2024 5:47 AM BUNCH BREAKER 01/08/2024 5:53 AM BUNCH BREAKER Stacey Thomas MD LAB BLOOD ORDERABLES Final Result Performing Organization Address City/[facility]/ZIP Co de Phone Number [facility] [place] [address] * Critical result callback Cardio chemistry (01/08/2024 5:47 AM BUNCH BREAKER) Date Notified [id number] Time Notified 625 [facility] Test name Trop I hs 2hr p [facility] Called/Read Back Corin [facility] Credentials MD [facility] Called By SHAWN [facility] Blood 01/08/2024 5:47 AM BUNCH BREAKER 01/08/2024 5:53 AM BUNCH BREAKER Stacey Thomas MD LAB BLOOD ORDERABLES Final Result Performing Organization Address [facility] Co de Phone Number [facility] [place] [address] * (ABNORMAL) Troponin I high-sensitivity series (baseline, 2hr, 4hr, 6hr) (01/08/2024 3:39 AM BUNCH BREAKER) Trop I hs 121(H) <=17 ng/L Comment: Interpretive Data For further hscTnI resources including the diagnostic algorithm and an aid in interpretation, copy and paste this link: https://bjhlab.testcatalog.org/show/hsTrop-1 Current Interpretive Data last revised 2019. Blood 01/08/2024 3:39 AM BUNCH BREAKER 01/08/2024 3:46 AM BUNCH BREAKER Amauri Greene MD PhD LAB BLOOD ORDERABLE S Final Result [facility] [place] [address] * (ABNORMAL) eGFR (01/08/2024 3:39 AM BUNCH BREAKER) Pathologist [facility] [place] eGFR 3(L) >=60 mL/min/1. 73 m2 Comment: [...] last reviewed 2020. Blood 01/08/2024 3:39 AM BUNCH BREAKER 01/08/2024 3:46 AM BUNCH BREAKER us Stacey Thomas MD LAB BLOOD ORDERABLES Final Result [facility] [place] [address] * (ABNORMAL) Differential, auto (01/08/2024 3:39 AM BUNCH BREAKER) Pathologist [facility] [place] Neutrophil abs 7.0(H) 1.5 - 6.5 K/cumm Imm gran abs 0.1 0.0 - 0.1 K/cumm [facility] Lymphocyte abs 2.2 0.8 - 3.3 K/cumm [facility] Monocyte abs 1.0(H) 0.2 - 0.8 K/cumm [facility] Eosinophil abs 0.2 0.0 - 0.5 K/cumm [facility] Basophil abs 0.1 0.0 - 0.1 K/cumm [facility] Neutrophil pct 66.7 % [facility] Comment: Interpretive Data Percent cell count reference ranges are not reported, since discordance with absolute values may lead to misinterpretation of CBC data. Current Interpretive Data was last revised on 2017. Imm gran pct 1.2 % [facility] Comment: Interpretive Data Percent cell count reference ranges are not reported, since discordance with absolute values may lead to misinterpretation of CBC data. Current Interpretive Data was last revised on 2017. Lymphocyte pct 20.4 % [facility] Comment: Interpretive Data Percent cell count reference ranges are not reported, since discordance with absolute values may lead to misinterpretation of CBC data. Current Interpretive Data was last revised on 2017. Monocyte pct 9.0 % [facility] Comment: Interpretive Data Percent cell count reference ranges are not reported, since discordance with absolute values may lead to misinterpretation of CBC data. Current Interpretive Data was last revised on 2017. Eosinophil pct 1.7 % [facility] Comment: Interpretive Data Percent cell count reference ranges are not reported, since discordance with absolute values may lead to misinterpretation of CBC data. Current Interpretive Data was last revised on 2017. Basophil pct 1.0 % [facility] Comment: Interpretive Data Percent cell count reference ranges are not reported, since discordance with absolute values may lead to misinterpretation of CBC data. Current Interpretive Data was last revised on 2017. Blood 01/08/2024 3:39 AM BUNCH BREAKER 01/08/2024 4:20 AM BUNCH BREAKER us Stacey Thomas MD LAB BLOOD ORDERABLES Final Result [facility] Department [place] [address] * (ABNORMAL) CBC with auto differential (01/08/2024 3:39 AM BUNCH BREAKER) WBC 10.6(H) 3.8 - 9.9 K/cumm Hgb 9.3(L) 11.9 - 15.5 g/dL [facility] Hct 29.7(L) 35.6 - 45.5 % [facility] Plt 205 150 - 400 K/cumm [facility] MPV 10.6 9.1 - 12.3 fL [facility] RBC 3.44(L) 3.90 - 5.20 M/cumm [facility] MCV 86.3 81.3 - 96.4 fL [facility] MCH 27.0(L) 27.1 - 33.3 pg [facility] MCHC 31.3(L) 32.3 - 35.7 g/dL [facility] RDW CV 14.5 11.1 - 14.9 % [facility] RDW SD 45.1 35.7 - 48.1 fL [facility] NRBC abs 0.00 0.00 - 0.01 K/cumm [facility] Blood 01/08/2024 3:39 AM BUNCH BREAKER 01/08/2024 4:20 AM BUNCH BREAKER us Amauri Greene MD PhD LAB BLOOD ORDERABLE S Final Result [facility] Department [place] [address] * (ABNORMAL) Comprehensive metabolic panel (01/08/2024 3:39 AM BUNCH BREAKER) Sodium 139 135 - 145 mmol/L Potassium, pl 4.8 3.3 - 4.9 mmol/L [facility] Chloride 101 97 - 110 mmol/L [facility] CO2 23 22 - 32 mmol/L [facility] Anion gap 15 2 - 15 mmol/L [facility] BUN 67(H) 6 - 25 mg/dL [facility] Creatinine 13.73(H) 0.60 - 1.10 mg/dL [facility] Glucose 138 70 - 199 mg/dL [facility] Comment: Interpretive Data Fasting glucose >/= 126 [...] 2022. Calcium 9.7 8.5 - 10.3 mg/dL [facility] Bilirubin, total 0.2 0.1 - 1.2 mg/dL [facility] Protein, pl 7.5 6.5 - 8.5 g/dL [facility] Albumin 3.2(L) 3.5 - 5.0 g/dL [facility] Alk phos 179(H) 40 - 130 Units/L [facility] ALT 40 7 - 45 Units/L [facility] AST 45 10 - 45 Units/L [facility] Blood 01/08/2024 3:39 AM BUNCH BREAKER 01/08/2024 3:46 AM BUNCH BREAKER us Amauri Greene MD PhD LAB BLOOD ORDERABLE S Final Result [facility] Department [place] [address] * XR Chest PA Lateral 2 Views (01/07/2024 10:56 PM BUNCH BREAKER) Anatomical Region Laterality Modality Body, Chest N/A Computed Radiogr aphy 01/08/2024 12:1 0 AM BUNCH BREAKER Impressions 01/08/2024 8:52 AM BUNCH BREAKER The current study is compared with the [...] Nick Miles M.D. Narrative 01/08/2024 8:52 AM BUNCH BREAKER EXAMINATION: 2 view chest radiograph Procedure Note [...] Result * ECG 12-LEAD (01/07/2024 10:21 PM BUNCH BREAKER) Narrative [facility] - 01/07/2024 10:21 PM BUNCH BREAKER Stacey Thomas MD 01/07/2024 10:23 PM ECG [...] EC03/06/2023 Interpretation: Interpretation: No significant change Stacey hTomas MD 01/07/243 us Amauri Greene MD PhD ECG ORDERABLES Fin al Result [facility] * (ABNORMAL) POCT glucose (01/07/2024 10:21 PM BUNCH BREAKER) Glucose, POC 200(H) 70 - 199 mg/dL Blood 01/07/2024 10:2 1 PM BUNCH BREAKER 01/07/2024 10:21 PM BUNCH BREAKER us Notinfile Unknown LAB POCT ORDERABLES - DEVICE F inal Result Performing Organization Address [facility] Co de Phone Number [facility] [place] [address] * Colonoscopy (07/21/2023 10:23 AM CDT) Anatomical Region Laterality Modality Other Narrative Procedure Note Early, Haritha Coronado MD - 07/21/2023 10:23 AM CDT [facility] Patient Name: Bakari Smith Procedure Date: 07/21/2023 10:23 AM Date of : 1980 Admit Type: Outpatient Age: 43 Gender: Female Attending MD: Haritha Stover M.D. Room: [facility] ENDOSCOPY ROOM 02 Note Status: Finalized Procedure: [...] The scope was passed under direct vision.The [id number] Colonoscope was introducedthrough the anus and advanced to the the cecum, identifiedby appendiceal orifice and ileocecal valve. The colonoscopy was performed without difficulty. The patient tolerated the procedure well. The qualityof the bowel preparation was evaluated using the BBPS ([place] Bowel Preparation Scale) with scores of:Right Colon [...] On: 07/21/2023 10:23 AM Recognized by the [employer] for promoting quality in endoscopy Haritha Stover MD ENDOSCOPY PROCEDURES Final Res ult * HM MAMMOGRAPHY (06/04/2021) Impressions Rashida Schneider - 06/04/2021 IMPRESSION: 1. Benign mammogram. READ BY: NINO BAJWA MD 06/05/2021 Historical Provider HEALTH MAINTENANCE Final Result * Lipid panel (04/30/2021 12:22 PM BUNCH BREAKER) Cholesterol 139 30 - 199 mg/dL [facility] Comment: Interpretive Data Ages [...] on 2017. Triglycerides 64 <=149 mg/dL [facility] Comment: Interpretive Data Ages [...] revised on 2017. Non-HDL Cholesterol 69 mg/dL [facility] Comment: Interpretive Data Ages < or = [...] last revised on 2017. Chol/HDL ratio 2 [facility] Blood 04/30/2021 12:2 2 PM BUNCH BREAKER 04/30/2021 1:03 PM BUNCH BREAKER us Ren Pelayo MD LAB BLOOD ORDERABLES Final Result [facility] JON[facility] Department [place] [address] from Last 3 Months or Most Recently Relevant to Health Maintenance [facility] MEDICARE MEDICARE MEDICARE Advance Directives For more information, please contact: [phone] * Full Code (Latest Code Status on File) Date Activated Date Inactivated Comments 07/21/2023 9:59 AM 07/21/2023 3:56 PM Care Teams Lost And Found Clerk Relationship Specialty Start Date End Date No, Physician PCP - General 02/16/24 Almita Rizzo, RN [address] [facility] [address] [place] [address] Home Appliance Tech 04/04/21 Beth Fernandez MD [address] [facility] [address] [place] [address] Referring Physician Nephrology 04/04/21 Maday Oviedo MD [address] [facility] [address] [place] [address] Neurology 09/12/22 Tomasz Scott DO [address] [place], [place] [id number] [facility] Card[facility] 09/16/22
--- OUTSIDE RECORDS SUMMARY | 2024-04-04 10:19 | XMS_ITS | Referral Summary ---
Author Organization [facility] at the [facility] Office Center Address [address] [place] [address] Care Team Providers Care College Instructor Name Role Phone Almita Rizzo RN Unavailable [phone] Beth Fernandez MD Unavailable [phone] Maday Oviedo MD Unavailable [phone] Tomasz Scott DO Unavailable [phone] No, Physician Primary Care Provider [phone] Encounters Date Type Department Care Team Description 03/29/2024 10:00 AM HOME HEALTH CNA - 03/29/2024 11:59 PM [facility] Hospital Encounter [address] [address] Pre-transplant evaluation for kidney transplant; ESRD (end stage renal disease) ([facility] ([facility]) Discharge Disposition: Discharge to home or self care 03/22/2024 Documentation [facility] Transplant Kidney [address] [address] Mailstop [phone] [place] [address] Almita Rizzo RN Waitlist Maintenance 02/29/2024 Telephone [facility] Transplant [facility] [address] [facility] [address] Mailstop [phone] [place] [address] Almita Rizzo RN Waitlist Maintenance 02/26/2024 10:00 AM HOME HEALTH CNA - 02/26/2024 11:59 PM [facility] Hospital Encounter [address] [place] [address] Pre-transplant evaluation for kidney transplant; ESRD (end stage renal disease) (CMS/HCC) ([facility]) Discharge Disposition: Discharge to home or self care 02/26/2024 7:21 AM HOME HEALTH CNA - 02/26/2024 11:59 PM [facility]NA Hospital Encounter [facility] Cardiac Diagnostic Lab [address] [place] [address] Pre-kidney transplant, patient on transplant list; ESRD (end stage renal disease) (CMS/HCC) ([facility]) Discharge Disposition: Discharge to home or self care 02/18/2024 Documentation [facility] Transplant Kidney [address] [facility] [address] Mailstop [phone] [place] [address] Anjali Gastelum Appointment/Schedul es 02/18/2024 Documentation [facility] Transplant Kid[facility] [address] [facility] [address] Mailstop [phone] [place] [address] Almita Rizzo RN Waitlist Maintenance 02/16/2024 11:25 AM HOME HEALTH CNA Lab [facility] ([facility]) [address] [place] [phone] Pre-kidney transplant, patient on transplant list; ESRD (end stage renal disease) (CMS/HCC) ([facility]) 01/26/2024 10:00 AM HOME HEALTH CNA - 01/26/2024 11:59 PM [facility] CNA Hospital Encounter [address] [address] Pre-transplant evaluation for kidney transplant; ESRD (end stage renal disease) (CMS/HCC) ([facility]) Discharge Disposition: Discharge to home or self care 01/25/2024 Telephone [facility] Transplant Kidney [address] [facility] [address] Mailstop [phone] [place] [address] Kathryn Still 01/08/2024 2:57 AM HOME HEALTH CNA - 01/08/2024 9:59 AM HOME HEALTH CNA Emergency [facility] Emergency Department [address] [place] [address] Amauri Greene MD PhD Orr, Brandan Martinez [...] (04/10/2022): Added automatically from request for surgery [id number] Hypertension 2021 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 ([facility]) 03/05/2021 Diabetic retinopathy associa graeme with type [...] on file Legal Sex Female 11:50 PM HOME HEALTH CNA Gender Identity Not on file Sexual Orientation Not on file Last Filed Vital Signs Vital Sign Reading Time Taken Comments Blood Pressure 165/85 02/26/2024 10:12 AM HOME HEALTH CNA Pulse 100 02/26/2024 10:12 AM HOME HEALTH CNA Temperature 36.7 C (98.1 F) 01/08/2024 9:45 AM HOME HEALTH CNA Respiratory Rate 16 01/08/2024 8:30 AM HOME HEALTH CNA Oxygen Saturation 97% 01/08/2024 9:30 AM HOME HEALTH CNA Inhaled Oxygen Concentration - - Weight 90.7 kg (200 lb) 02/26/2024 8:40 AM HOME HEALTH CNA Height 160 cm (5' 3 ) 02/26/2024 8:40 AM HOME HEALTH CNA Body Mass Index 35.43 02/26/2024 8:40 AM HOME HEALTH CNA Plan of Treatment Not on file Medical Devices Implanted Type Area Production Control Manager Device Identifier Shelf Expiration Date Model / Serial / Lot [employer] [id number] Angel Fire 15fr 62cm 2 Cuff Radiopaque Peritoneal Curl Catheter - Sn/A - [id number] Implanted:Qty : 1 on 03/14/2021 by Gildardo Leggett MD at [facility] Catheter N/A: Abdomen [employer] 07/01/2025 [id number] / N/A / [id number] Description:Peritoneal Dialy sis Catheter, Curl Cath, 2 Cuffs Graft Vasc 45cm 4-6mm Lincoln Acuseal Eptfe 3 Layer Kink Rst - [id number] - [id number] Implanted:Qty : 1 on 05/08/2022 by Uche Katz MD at [facility] Graft Left: Arm [employer] [id number] 05/21/2024 [id number] / [id number] / 00 Procedures Procedure Name Priority Date/Time Associated Diagnosis Comments HLA ANTIBODY SCREEN BY PRA OR SAB PER SCHEDULE (CLASS I AND CLASS II) Routine 03/29/2024 10:00 AM HOME HEALTH CNA Pre-transplant evaluation for kidney transplant ESRD (end stage renal disease) ([facility] ([facility]) STRESS ECHO PHARMACOLOGIC W DOPPLER/CF W CONTRAST Routine 02/26/2024 10:12 AM HOME HEALTH CNA Pre-kidney transplant, patient on transplant list ESRD (end stage renal disease) ([facility]) ([facility]) HLA ANTIBODY SCREEN BY PRA OR SAB PER SCHEDULE (CLASS I AND CLASS II) Routine 02/26/2024 10:00 AM HOME HEALTH CNA Pre-transplant evaluation for kidney transplant ESRD (end stage renal disease) (CMS/HCC) (HCC) EGFR Routine 02/16/2024 11:34 AM HOME HEALTH CNA Pre-kidney transplant, patient on transplant list ESRD (end stage renal disease) (CMS/HCC) (HCC) DIFFERENTIAL AUTO Routine 02/16/2024 11: 34 AM HOME HEALTH CNA Pre-kidney transplant, patient on transplant list ESRD (end stage renal disease) (CMS/HCC) (HCC) CBC WITH AUTO DIFFERENTIAL Routine 02/16/2024 11:34 AM HOME HEALTH CNA Pre-kidney transplant, patient on transplant list ESRD (end stage renal disease) (CMS/HCC) (HCC) COMPREHENSIVE METABOLIC PANEL Routine 02/16/2024 11:34 AM HOME HEALTH CNA Pre-kidney transplant, patient on transplant list ESRD (end stage renal disease) (CMS/HCC) (HCC) PHOSPHORUS Routine 02/16/2024 11:34 AM HOME HEALTH CNA Pre-kidney transplant, patient on transplant list ESRD (end stage renal disease) (CMS/HCC) (HCC) PTH Routine 02/16/2024 11:34 AM HOME HEALTH CNA Pre-kidney transplant, patient on transplant list ESRD (end stage renal disease) (CMS/HCC) (HCC) HEMOGLOBIN A1C Routine 02/16/2024 11:34 AM HOME HEALTH CNA Pre-kidney transplant, patient on transplant list ESRD (end stage renal disease) (CMS/HCC) (HCC) HIV 1/2 ANTIBODY PLUS P24 ANTIGEN Routine 02/16/2024 11:34 AM HOME HEALTH CNA Pre-kidney transplant, patient on transplant list ESRD (end stage renal disease) (CMS/HCC) (HCC) HEPATITIS B SURFACE ANTIBODY (IMMUNE STATUS) Routine 02/16/2024 11:34 AM HOME HEALTH CNA Pre-kidney transplant, patient on transplant list ESRD (end stage renal disease) (CMS/HCC) (HCC) HEPATITIS B SURFACE ANTIGEN Routine 02/16/2024 11:34 AM HOME HEALTH CNA Pre-kidney transplant, patient on transplant list ESRD (end stage renal disease) (CMS/HCC) (HCC) HEPATITIS C ANTIBODY Routine 02/16/2024 11:34 AM HOME HEALTH CNA Pre-kidney transplant, patient on transplant list ESRD (end stage renal disease) (CMS/HCC) (HCC) HEPATITIS B CORE ANTIBODY, TOTAL Routine 02/16/2024 11:34 AM HOME HEALTH CNA Pre-kidney transplant, patient on transplant list ESRD (end stage renal disease) (CMS/HCC) (HCC) HLA ANTIBODY SCREEN - SAB (CLASS I AND CLASS II) Routine 01/26/2024 10:00 AM HOME HEALTH CNA Pre-transplant evaluation for kidney transplant ESRD (end stage renal disease) (CMS/HCC) (HCC) HLA ANTIBODY SCREEN BY PRA OR SAB PER SCHEDULE (CLASS I AND CLASS II) Routine 01/26/2024 10:00 AM HOME HEALTH CNA Pre-transplant evaluation for kidney transplant ESRD (end stage renal disease) (CMS/HCC) (HCC) POCT GLUCOSE DEVICE Routine 01/08/2024 9 :44 AM HOME HEALTH CNA TROPONIN I HIGH-SENSITIVITY 4-HOUR Timed 01/08/2024 7:44 AM HOME HEALTH CNA POCT GLUCOSE DEVICE Routine 01/08/2024 7 :43 AM HOME HEALTH CNA POCT GLUCOSE DEVICE Routine 01/08/2024 5 :48 AM HOME HEALTH CNA CRITICAL RESULT CALLBACK CARDIO CHEM Timed 01/08/2024 5:47 AM HOME HEALTH CNA TROPONIN I HIGH-SENSITIVITY 2-HOUR Timed 01/08/2024 5:47 AM HOME HEALTH CNA MDI INSTRUCT STAT 01/08/2024 4:48 AM HOME HEALTH CNA EGFR STAT 01/08/2024 3:39 AM HOME HEALTH CNA DIFFERENTIAL AUTO STAT 01/08/2024 3:3 9 AM HOME HEALTH CNA TROPONIN I HIGH-SENSITIVITY SERIES (BASELINE, 2HR, 4HR, 6HR) STAT 01/08/2024 3:39 AM HOME HEALTH CNA CBC WITH AUTO DIFFERENTIAL STAT 01/08/2024 3:39 AM HOME HEALTH CNA COMPREHENSIVE METABOLIC PANEL STAT 01/08/2024 3:39 AM HOME HEALTH CNA XR CHEST PA LATERAL 2 VIEWS ED 01/07/2024 10:56 PM HOME HEALTH CNA ECG 12-LEAD STAT 01/07/2024 10:21 PM HOME HEALTH CNA POCT GLUCOSE DEVICE Routine 01/07/2024 1 0:21 PM HOME HEALTH CNA COLONOSCOPY 07/21/2023 10:23 AM CDT HM MAMMOGRAPHY Routine 06/04/2021 LIPID PANEL Routine 04/30/2021 12:22 PM HOME HEALTH CNA Pre-transplant evaluation for kidney transplant End stage renal disease (CMS/HCC) (HCC) from Last 3 Months or Most Recently Relevant to Health Maintenance Results * HLA Antibody Screen by PRA or SAB per Schedule (Class I and Class II) (03/29/2024 10:00 AM HOME HEALTH CNA) Blood 03/29/2024 10:0 0 AM HOME HEALTH CNA Narrative [facility] Sample received in lab. Single Antigen Antibody Screen ordered. us Bashir Alston MD LAB BLOOD ORDERABLES Final R esult [facility] * STRESS ECHO PHARMACOLOGIC W DOPPLER/CF W CONTRAST (02/26/2024 10:12 AM HOME HEALTH CNA) LV EF 58 % CARDIOREPORT Anatomical Region Laterality Modality Ultrasound 02/26/2024 8:00 AM HOME HEALTH CNA Narrative 02/26/2024 11:07 AM HOME HEALTH CNA Patient name: Bakari Smith Date of test: 02/26/2024 Hospital #: [id number] Location: [facility] Interpreted by: Kip Pena M.D. Ph.D. Grades 9 12 Tutor: Lainey Oh RDCS RN: Hilda Monk RN Reason for Test: pre-kidney transplant evaluation Study quality: Technically good Referring Physician: TONYA HAMMONDS MD Contrast Agent: 0.45 ml Definity Administered, (1.05 ml wasted). BASELINE STUDY: Wall Motion Scoring (1=Normal 2=Hypo 3=Akinetic 4=Dyskin./Aneurysm 0=Not visualized) Parasternal Long Seeley:MAS=1 BAS=1 MIL=1 RENATO=1 Parasternal Short Seeley:MAS=1 MIS=1 WA=1 MIL=1 MAL=1 MA=1 Apical 4 Chambers:=1 MIS=1 BIS=1 BAL=1 MAL=1 AL=1 AC=1 Apical 2 Chambers:AI=1 WA=1 BI=1 BA=1 MA=1 AA=1 AC=1 Ejection Fraction: [...] 2=Hypo 3=Akinetic 4=Dyskin./Aneurysm 0=Not visualized) Parasternal Long [place]:MAS=1 BAS=1 MIL=1 RENATO=1 Parasternal Short [place]ley:MAS=1 MIS=1 WA=1 MIL=1 MAL=1 MA=1 Apical 4 Chambers:=1 MIS=1 BIS=1 BAL=1 MAL=1 AL=1 AC=1 Apical 2 Chambers:AI=1 WA=1 BI=1 BA=1 MA=1 AA=1 AC=1 Intravenous dobutamine [...] Ph.D. By signing this report, the attending turner in certifies that he or she has personally supervised and interpreted the echocardiogram and has reviewed and or edited and agrees with the written comments contained within the report. Procedure Note Kip Pena MD PhD - 02/26/2024 Patient name: Bakari Smith Date of test: 02/26/2024 Hospital #: 0 Location: [facility] Interpreted by: Kip Pena M.D. Ph.D. Grades 9 12 Tutor: Lainey Oh RDCS RN: Hilda Monk RN Reason for Test: pre-kidney transplant evaluation Study quality: Technically good Referring Physician: TONYA HAMMONDS MD Contrast Agent: 0.45 ml Definity Administered, (1.05 ml wasted). BASELINE STUDY: Wall Motion Scoring (1=Normal 2=Hypo 3=Akinetic 4=Dyskin./Aneurysm 0=Not visualized) Parasternal Long [place]ley:MAS=1 BAS=1 MIL=1 RENATO=1 Parasternal Short [place]ley:MAS=1 MIS=1 WA=1 MIL=1 MAL=1 MA=1 Apical 4 Chambers:=1 MIS=1 BIS=1 BAL=1 MAL=1 AL=1 AC=1 Apical 2 Chambers:AI=1 WA=1 BI=1 BA=1 MA=1 AA=1 AC=1 Ejection Fraction: [...] 2=Hypo 3=Akinetic 4=Dyskin./Aneurysm 0=Not visualized) Parasternal Long [place]ley:MAS=1 BAS=1 MIL=1 RENATO=1 Parasternal Short Seeley:MAS=1 MIS=1 WA=1 MIL=1 MAL=1 MA=1 Apical 4 Chambers:=1 MIS=1 BIS=1 BAL=1 MAL=1 AL=1 AC=1 Apical 2 Chambers:AI=1 WA=1 BI=1 BA=1 MA=1 AA=1 AC=1 Intravenous dobutamine [...] Ph.D. By signing this report, the attending turner in certifies that he or she has personally supervised and interpreted the echocardiogram and has reviewed and or edited and agrees with the written comments contained within the report. us Tonya Hammonds MD CV ECHO PROCEDURES Final Result * HLA Antibody Screen by PRA or SAB per Schedule (Class I and Class II) (02/26/2024 10:00 AM HOME HEALTH CNA) Blood 02/26/2024 10:0 0 AM HOME HEALTH CNA Narrative [facility] Sample received in lab and stored. No testing performed at this time. us Bashir Alston MD LAB BLOOD ORDERABLES Final R esult [facility] * (ABNORMAL) eGFR (02/16/2024 11:34 AM HOME HEALTH CNA) eGFR 4(L) >=60 mL/min/1. 73 m2 Comment: [...] reviewed 2020. Blood 02/16/2024 11:3 4 AM HOME HEALTH CNA 02/16/2024 12:02 PM HOME HEALTH CNA us Tonya Hammonds MD LAB BLOOD ORDERABLE S Final Result [facility] [place] [address] * Differential, auto (02/16/2024 11:34 AM HOME HEALTH CNA) Neutrophil abs 5.1 1.5 - 6.5 K/cumm Imm gran abs 0.1 0.0 - 0.1 K/cumm [facility] Lymphocyte abs 2.0 0.8 - 3.3 K/cumm [facility] Monocyte abs 0.6 0.2 - 0.8 K/cumm [facility] Eosinophil abs 0.1 0.0 - 0.5 K/cumm [facility] Basophil abs 0.0 0.0 - 0.1 K/cumm [facility] Neutrophil pct 64.7 % [facility] Comment: Interpretive Data Percent cell count reference ranges are not reported, since discordance with absolute values may lead to misinterpretation of CBC data. Current Interpretive Data was last revised on 2017. Imm gran pct 0.6 % [facility] Comment: Interpretive Data Percent cell count reference ranges are not reported, since discordance with absolute values may lead to misinterpretation of CBC data. Current Interpretive Data was last revised on 2017. Lymphocyte pct 25.3 % [facility] Comment: Interpretive Data Percent cell count reference ranges are not reported, since discordance with absolute values may lead to misinterpretation of CBC data. Current Interpretive Data was last revised on 2017. Monocyte pct 7.3 % [facility] Comment: Interpretive Data Percent cell count reference ranges are not reported, since discordance with absolute values may lead to misinterpretation of CBC data. Current Interpretive Data was last revised on 2017. Eosinophil pct 1.8 % [facility] Comment: Interpretive Data Percent cell count reference ranges are not reported, since discordance with absolute values may lead to misinterpretation of CBC data. Current Interpretive Data was last revised on 2017. Basophil pct 0.3 % [facility] Comment: Interpretive Data Percent cell count reference ranges are not reported, since discordance with absolute values may lead to misinterpretation of CBC data. Current Interpretive Data was last revised on 2017. Blood 02/16/2024 11:3 4 AM HOME HEALTH CNA 02/16/2024 11:45 AM HOME HEALTH CNA Tonya Hammonds MD LAB BLOOD ORDERABLE S Final Result Performing Organization Address [facility] Co de Phone Number [facility] [place] [address] * HIV 1/2 Antibody plus p24 Antigen Blood (02/16/2024 11:34 AM HOME HEALTH CNA) [facility] HIV 1/2 ab + p24 ag Nonreactive Nonreactive Comment:Nonreactive for HIV- 1 antigen and HIV-1/HIV-2 antibodies. No laboratory evidence of HIV infection. If acute HIV infection is suspected, consider testing for HIV-1 RNA. Current interpretive data was last revised on 21. Blood 02/16/2024 11:3 4 AM HOME HEALTH CNA 02/16/2024 11:45 AM HOME HEALTH CNA Tonya Hammonds MD LAB MICROBIOLOGY - GENERAL ORDERABLES Final Result Performing Organization Address City/[facility]/ZIP Co de Phone Number [facility] [place] [address] * (ABNORMAL) CBC with auto differential (02/16/2024 11:34 AM HOME HEALTH CNA) [facility] WBC 7.8 3.8 - 9.9 K/cumm Hgb 8.6(L) 11.9 - 15.5 g/dL [facility] Hct 28.3(L) 35.6 - 45.5 % [facility] Plt 265 150 - 400 K/cumm [facility] MPV 10.2 9.1 - 12.3 fL [facility] RBC 3.24(L) 3.90 - 5.20 M/cumm [facility] MCV 87.3 81.3 - 96.4 fL [facility] MCH 26.5(L) 27.1 - 33.3 pg [facility] MCHC 30.4(L) 32.3 - 35.7 g/dL [facility] RDW CV 14.9 11.1 - 14.9 % [facility] RDW SD 48.1 35.7 - 48.1 fL [facility] NRBC abs 0.00 0.00 - 0.01 K/cumm [facility] Blood 02/16/2024 11:3 4 AM HOME HEALTH CNA 02/16/2024 11:45 AM HOME HEALTH CNA Tonya Hammonds MD LAB BLOOD ORDERABLE S Final Result Performing Organization Address City/[facility] Co de Phone Number [facility] [place] [place] [address] * Hepatitis C antibody Blood (02/16/2024 11:34 AM HOME HEALTH CNA) [facility] Hep C Ab Nonreactive Nonreactive Comment:Antibodies to HCV no t detected. Does NOT exclude the possibility of recent exposure to HCV. Current interpretive data was last revised on 21 Blood 02/16/2024 11:3 4 AM HOME HEALTH CNA 02/16/2024 11:45 AM HOME HEALTH CNA Tonya Hammonds MD LAB MICROBIOLOGY - GENERAL ORDERABLES Final Result [facility] [place] [address] * Hepatitis B core antibody, total Blood (02/16/2024 11:34 AM HOME HEALTH CNA) [facility] Hep B core IgG/IgM Nonreactive Nonreactive Blood 02/16/2024 11:3 4 AM HOME HEALTH CNA 02/16/2024 11:45 AM HOME HEALTH CNA Tonya Hammonds MD LAB MICROBIOLOGY - GENERAL ORDERABLES Final Result Performing Organization Address City/[facility] Co de Phone Number [facility] Department [place] [address] * Hepatitis B surface antibody (immune status) Blood (02/16/2024 11:34 AM HOME HEALTH CNA) Pathologist [facility] HBsAb (immune status) Reactive Comment:This result is consi stent with immunity to Hepatitis B Virus when used in the setting of routine screening. Current interpretive data was last revised on 21 HBsAb (immune status) index 221.0 mIUnits/m L [facility] Blood 02/16/2024 11:3 4 AM HOME HEALTH CNA 02/16/2024 11:45 AM HOME HEALTH CNA us Tonya Hammonds MD LAB MICROBIOLOGY - GENERAL ORDERABLES Final Result Performing Organization Address City/[facility] Co de Phone Number [facility] Department [place] [address] * Hepatitis B Surface Antigen Blood (02/16/2024 11:34 AM HOME HEALTH CNA) [facility] HepBsAg Nonreactive Nonreactive Blood 02/16/2024 11:3 4 AM HOME HEALTH CNA 02/16/2024 11:45 AM HOME HEALTH CNA Tonya Hammonds MD LAB MICROBIOLOGY - GENERAL ORDERABLES Final Result Performing Organization Address City/[facility] Co de Phone Number [facility] [place] [address] * (ABNORMAL) Phosphorus (02/16/2024 11:34 AM HOME HEALTH CNA) Pathologist [facility] Phosphorus, pl 5.6(H) 2.3 - 4.5 mg/dL Blood 02/16/2024 11:3 4 AM HOME HEALTH CNA 02/16/2024 11:45 AM HOME HEALTH CNA Tonya Hammonds MD LAB BLOOD ORDERABLE S Final Result Performing Organization Address City/[facility] Co de Phone Number [facility] [place] [place] [address] * (ABNORMAL) PTH (02/16/2024 11:34 AM HOME HEALTH CNA) PTH 335(H) 15 - 65 pg/mL Blood 02/16/2024 11:3 4 AM HOME HEALTH CNA 02/16/2024 11:45 AM HOME HEALTH CNA Result [facility] Tonya Hammonds MD LAB BLOOD ORDERABLE S Final Result Performing Organization Address [facility] de Phone Number [facility] [place] [place] [address] * (ABNORMAL) Hemoglobin A1c (02/16/2024 11:34 AM HOME HEALTH CNA) Hgb A1C 6.2(H) 4.0 - 5.6 % Estimated Average Glucose 131 mg/dL [facility] Comment: The ADA recommends reporting an estimated Average Glucose (eAG) with all Hemoglobin A1c results using the equation derived from a study of 507 normal and diabetic adults. Minority populations were underrepresented and children were not included. (Diabetes Care 2020; 43(S1): S66-S76). The eAG is not equivalent to a fasting glucose. Blood 02/16/2024 11:3 4 AM HOME HEALTH CNA 02/16/2024 11:45 AM HOME HEALTH CNA Result [facility] Tonya Hammonds MD LAB BLOOD ORDERABLE S Final Result Performing Organization Address [facility] Co de Phone Number [facility] [place] [place] [address] * (ABNORMAL) Comprehensive metabolic panel (02/16/2024 11:34 AM HOME HEALTH CNA) Sodium 140 135 - 145 mmol/L Potassium, pl 4.4 3.3 - 4.9 mmol/L [facility] Chloride 102 97 - 110 mmol/L [facility] CO2 28 22 - 32 mmol/L [facility] Anion gap 10 2 - 15 mmol/L [facility] BUN 46(H) 6 - 25 mg/dL [facility] Creatinine 10.77(H) 0.60 - 1.10 mg/dL [facility] Glucose 223(H) 70 - 199 mg/dL [facility] Comment: Interpretive Data Fasting glucose >/= [...] 2022. Calcium 8.8 8.5 - 10.3 mg/dL [facility] Bilirubin, total 0.2 0.1 - 1.2 mg/dL [facility] Protein, pl 6.8 6.5 - 8.5 g/dL [facility] Albumin 3.1(L) 3.5 - 5.0 g/dL [facility] Alk phos 233(H) 40 - 130 Units/L [facility] ALT 57(H) 7 - 45 Units/L [facility] AST 50(H) 10 - 45 Units/L [facility] Blood 02/16/2024 11:3 4 AM HOME HEALTH CNA 02/16/2024 11:45 AM HOME HEALTH CNA us Tonya Hammonds MD LAB BLOOD ORDERABLE S Final Result [facility] [place] [address] * HLA Antibody Screen by PRA or SAB per Schedule (Class I and Class II) (01/26/2024 10:00 AM HOME HEALTH CNA) Blood 01/26/2024 10:0 0 AM HOME HEALTH CNA Narrative [facility] Sample received in lab. Single Antigen Antibody Screen ordered. us Bashir Alston MD LAB BLOOD ORDERABLES Final R esult [facility] * HLA Antibody Screen - SAB (Class I and Class II) (01/26/2024 10:00 AM HOME HEALTH CNA) Class I Treatment EDTA [facility] Class I [...] per SSO. [facility] 01/26/2024 10:0 0 AM HOME HEALTH CNA 01/29/2024 1:28 PM HOME HEALTH CNA Narrative [facility] - 01/29/2024 1:28 PM HOME HEALTH CNA Single-antigen HLA antibody screen is performed on serum samples using a method developed and validated by the [facility] HLA laboratory based on an FDA-approved IVD kit (LABScreen Single-Antigen, [employer], [place], [place]). All patient serum samples are pretreated with EDTA before the screen to prevent complement interference. Additional serum treatments, such as adsorption and DTT treatment, may be performed as indicated. Interpretive comments: Low risk: MFI [id number]. Moderate risk: MFI [id number]. Increased risk: MFI >/= 5000. The presence [...] antigens to avoid. Testing performed at the [facility], [address], 5th floor, [place], [address]. [facility] # [id number]. Amber Berry, Ph.D., Colored Leather Setter, [facility] Laboratory Jonathan Brennan M.D., Ph.D., Gradall Operator, [facility] Laboratory Rehana Alarcon, Ph.D., CLIA Gradall Operator, [facility] Clinical Laboratories Current methodology and interpretive comments last revised on 03/20/2022. us Bashir Alston MD LAB BLOOD ORDERABLES Final R esult Performing Organization Address City/[facility]/ZIP Co de Phone Number HISTOTRAC * POCT glucose (01/08/2024 9:44 AM HOME HEALTH CNA) Glucose, POC 97 70 - 199 mg/dL Blood 01/08/2024 9:44 AM HOME HEALTH CNA 01/08/2024 9:44 AM HOME HEALTH CNA Brandan Orr MD LAB POCT ORDERABLES - DEV ICE Final Result Performing Organization Address [facility]/ZIP Co de Phone Number [facility] [place] [address] * (ABNORMAL) Troponin I high-sensitivity 4-hour (01/08/2024 7:44 AM HOME HEALTH CNA) Trop I hs 131(H) <=17 ng/L Comment: Interpretive Data For further [facility] resources including the diagnostic algorithm and an aid in interpretation, copy and paste this link: https://bjhlab.testcatalog.org/show/hsTrop-1 Current Interpretive Data last revised 2019. Trop I hs pct delta 8 % [facility] Trop I hs interp Equivocal [facility] Blood 01/08/2024 7:44 AM HOME HEALTH CNA 01/08/2024 7:53 AM HOME HEALTH CNA Stacey Thomas MD LAB BLOOD ORDERABLES Final Result Performing Organization Address City/[facility]/ZIP Co de Phone Number [facility] [place] [address] * POCT glucose (01/08/2024 7:43 AM HOME HEALTH CNA) Glucose, POC 92 70 - 199 mg/dL Blood 01/08/2024 7:43 AM HOME HEALTH CNA 01/08/2024 7:43 AM HOME HEALTH CNA Brandan Orr MD LAB POCT ORDERABLES - DEV ICE Final Result [facility] [place] [address] * POCT glucose (01/08/2024 5:48 AM HOME HEALTH CNA) [facility] Glucose, POC 109 70 - 199 mg/dL Blood 01/08/2024 5:48 AM HOME HEALTH CNA 01/08/2024 5:48 AM HOME HEALTH CNA Amauri Greene MD PhD LAB POCT ORDERABLES - DEVICE Final Result Performing Organization Address [facility] Co de Phone Number [facility] [place] [address] * (ABNORMAL) Troponin I high-sensitivity 2-hour (01/08/2024 5:47 AM HOME HEALTH CNA) Trop I hs 140(H) <=17 ng/L Comment: reviewed Interpretive Data For further hscTnI resources including the diagnostic algorithm and an aid in interpretation, copy and paste this link: https://bjhlab.testcatalog.org/show/hsTrop-1 Current Interpretive Data last revised 2019. Trop I hs pct delta 16(C) % [facility] Comment:reviewed Trop I hs interp Significa nt(C) [facility] Comment:reviewed Blood 01/08/2024 5:47 AM HOME HEALTH CNA 01/08/2024 5:53 AM HOME HEALTH CNA us Stacey Thomas MD LAB BLOOD ORDERABLES Final Result Performing Organization Address City/[facility]/ZIP Co de Phone Number [facility] [place] [address] * Critical result callback Cardio chemistry (01/08/2024 5:47 AM HOME HEALTH CNA) Pathologist [facility] Date Notified [id number] Time Notified [address] [facility] [facility] Test name Trop I hs 2hr p [facility] Called/Read Back Corin HOLT Credentials MD [facility] Called By SHAWN HOLT Blood 01/08/2024 5:47 AM HOME HEALTH CNA 01/08/2024 5:53 AM HOME HEALTH CNA us Stacey Thomas MD LAB BLOOD ORDERABLES Final Result Performing Organization Address [facility] [place] [address] * (ABNORMAL) Troponin I high-sensitivity series (baseline, 2hr, 4hr, 6hr) (01/08/2024 3:39 AM HOME HEALTH CNA) [facility] Trop I hs 121(H) <=17 ng/L Comment: Interpretive Data For further [facility] resources including the diagnostic algorithm and an aid in interpretation, copy and paste this link: https://bjhlab.testcatalog.org/show/hsTrop-1 Current Interpretive Data last revised 2019. Blood 01/08/2024 3:39 AM HOME HEALTH CNA 01/08/2024 3:46 AM HOME HEALTH CNA us Amauri Greene MD PhD LAB BLOOD ORDERABLE S Final Result Performing Organization Address [facility] Co de Phone Number [facility] [place] [address] * (ABNORMAL) eGFR (01/08/2024 3:39 AM HOME HEALTH CNA) [facility] eGFR 3(L) >=60 mL/min/1. 73 m2 Comment: [...] last reviewed 2020. Blood 01/08/2024 3:39 AM HOME HEALTH CNA 01/08/2024 3:46 AM HOME HEALTH CNA us Stacey Thomas MD LAB BLOOD ORDERABLES Final Result [facility] [place] [address] * (ABNORMAL) Differential, auto (01/08/2024 3:39 AM HOME HEALTH CNA) Neutrophil abs 7.0(H) 1.5 - 6.5 K/cumm Imm gran abs 0.1 0.0 - 0.1 K/cumm [facility] Lymphocyte abs 2.2 0.8 - 3.3 K/cumm [facility] Monocyte abs 1.0(H) 0.2 - 0.8 K/cumm [facility] Eosinophil abs 0.2 0.0 - 0.5 K/cumm [facility] Basophil abs 0.1 0.0 - 0.1 K/cumm [facility] Neutrophil pct 66.7 % [facility] Comment: Interpretive Data Percent cell count reference ranges are not reported, since discordance with absolute values may lead to misinterpretation of CBC data. Current Interpretive Data was last revised on 2017. Imm gran pct 1.2 % [facility] Comment: Interpretive Data Percent cell count reference ranges are not reported, since discordance with absolute values may lead to misinterpretation of CBC data. Current Interpretive Data was last revised on 2017. Lymphocyte pct 20.4 % [facility] Comment: Interpretive Data Percent cell count reference ranges are not reported, since discordance with absolute values may lead to misinterpretation of CBC data. Current Interpretive Data was last revised on 2017. Monocyte pct 9.0 % [facility] Comment: Interpretive Data Percent cell count reference ranges are not reported, since discordance with absolute values may lead to misinterpretation of CBC data. Current Interpretive Data was last revised on 2017. Eosinophil pct 1.7 % [facility] Comment: Interpretive Data Percent cell count reference ranges are not reported, since discordance with absolute values may lead to misinterpretation of CBC data. Current Interpretive Data was last revised on 2017. Basophil pct 1.0 % [facility] Comment: Interpretive Data Percent cell count reference ranges are not reported, since discordance with absolute values may lead to misinterpretation of CBC data. Current Interpretive Data was last revised on 2017. Blood 01/08/2024 3:39 AM HOME HEALTH CNA 01/08/2024 4:20 AM HOME HEALTH CNA us Stacey Thomas MD LAB BLOOD ORDERABLES Final Result [facility] [place] [place] [address] * (ABNORMAL) CBC with auto differential (01/08/2024 3:39 AM HOME HEALTH CNA) WBC 10.6(H) 3.8 - 9.9 K/cumm Hgb 9.3(L) 11.9 - 15.5 g/dL [facility] Hct 29.7(L) 35.6 - 45.5 % [facility] Plt 205 150 - 400 K/cumm [facility] MPV 10.6 9.1 - 12.3 fL [facility] RBC 3.44(L) 3.90 - 5.20 M/cumm [facility] MCV 86.3 81.3 - 96.4 fL [facility] MCH 27.0(L) 27.1 - 33.3 pg [facility] MCHC 31.3(L) 32.3 - 35.7 g/dL [facility] RDW CV 14.5 11.1 - 14.9 % [facility] RDW SD 45.1 35.7 - 48.1 fL [facility] NRBC abs 0.00 0.00 - 0.01 K/cumm [facility] Blood 01/08/2024 3:39 AM HOME HEALTH CNA 01/08/2024 4:20 AM HOME HEALTH CNA us Amauri Greene MD PhD LAB BLOOD ORDERABLE S Final Result [facility] [place] [place] [address] * (ABNORMAL) Comprehensive metabolic panel (01/08/2024 3:39 AM HOME HEALTH CNA) Sodium 139 135 - 145 mmol/L Potassium, pl 4.8 3.3 - 4.9 mmol/L [facility] Chloride 101 97 - 110 mmol/L [facility] CO2 23 22 - 32 mmol/L [facility] Anion gap 15 2 - 15 mmol/L [facility] BUN 67(H) 6 - 25 mg/dL [facility] Creatinine 13.73(H) 0.60 - 1.10 mg/dL [facility] Glucose 138 70 - 199 mg/dL [facility] Comment: Interpretive Data Fasting glucose >/= [...] Calcium 9.7 8.5 - 10.3 mg/dL [facility] Bilirubin, total 0.2 0.1 - 1.2 mg/dL [facility] Protein, pl 7.5 6.5 - 8.5 g/dL [facility] Albumin 3.2(L) 3.5 - 5.0 g/dL [facility] Alk phos 179(H) 40 - 130 Units/L [facility] ALT 40 7 - 45 Units/L [facility] AST 45 10 - 45 Units/L [facility] Blood 01/08/2024 3:39 AM HOME HEALTH CNA 01/08/2024 3:46 AM HOME HEALTH CNA us Amauri Greene MD PhD LAB BLOOD ORDERABLE S Final Result [facility] [place] [address] * XR Chest PA Lateral 2 Views (01/07/2024 10:56 PM HOME HEALTH CNA) Anatomical Region Laterality Modality Body, Chest N/A Computed Radiogr aphy 01/08/2024 12:1 0 AM HOME HEALTH CNA Impressions 01/08/2024 8:52 AM HOME HEALTH CNA The current study is compared with the [...] Nick Miles M.D. Narrative 01/08/2024 8:52 AM HOME HEALTH CNA EXAMINATION: 2 view chest radiograph Procedure Note [...] Result * ECG 12-LEAD (01/07/2024 10:21 PM HOME HEALTH CNA) Narrative [facility] - 01/07/2024 10:21 PM HOME HEALTH CNA Stacey Thomas MD 01/07/2024 10:23 PM ECG [...] MD PhD ECG ORDERABLES Fin al Result [facility] * (ABNORMAL) POCT glucose (01/07/2024 10:21 PM HOME HEALTH CNA) Glucose, POC 200(H) 70 - 199 mg/dL Blood 01/07/2024 10:2 1 PM HOME HEALTH CNA 01/07/2024 10:21 PM HOME HEALTH CNA us Notinfile Unknown LAB POCT ORDERABLES - DEVICE F inal Result Performing Organization Address City/[facility]/ZIP Co de Phone Number [facility] [place] [address] * Colonoscopy (07/21/2023 10:23 AM CDT) Anatomical Region Laterality Modality Other Narrative Procedure Note Haritha Stover MD - 07/21/2023 10:23 AM CDT [facility] Patient Name: Bakari Smith Procedure Date: 07/21/2023 10:23 AM Date of : 1980 Admit Type: Outpatient Age: 43 Gender: Female Attending MD: Haritha Stover M.D. Room: [facility] ENDOSCOPY ROOM 02 Note Status: Finalized Procedure: [...] The scope was passed under direct vision.The [id number] Colonoscope was introducedthrough the anus and advanced to the the cecum, identifiedby appendiceal orifice and ileocecal valve. The colonoscopy was performed without difficulty. The patient tolerated the procedure well. The qualityof the bowel preparation was evaluated using the BBPS ([place] Bowel Preparation Scale) with scores of:Right Colon [...] On: 07/21/2023 10:23 AM Recognized by the [place] [employer] for promoting quality in endoscopy Haritha Stover MD ENDOSCOPY PROCEDURES Final Res ult * HM MAMMOGRAPHY (06/04/2021) Impressions Rashida Schneider - 06/04/2021 IMPRESSION: 1. Benign mammogram. READ BY: NINO BAJWA MD 06/05/2021 Historical Provider HEALTH MAINTENANCE Final Result * Lipid panel (04/30/2021 12:22 PM HOME HEALTH CNA) Cholesterol 139 30 - 199 mg/dL [facility] Comment: Interpretive Data Ages < or = [...] on 2017. Triglycerides 64 <=149 mg/dL [facility] Comment: Interpretive Data Ages < or = [...] revised on 2017. HDL 70 >=40 mg/dL [facility] Comment: Interpretive Data Ages < [...] 2017. LDL, calculated 56 <=129 mg/dL [facility] Comment: Interpretive Data Ages < [...] on 2017. Non-HDL Cholesterol 69 mg/dL [facility] Comment: Interpretive Data Ages < [...] revised on 2017. Chol/HDL ratio [address] [facility] Blood 04/30/2021 12:2 2 PM HOME HEALTH CNA 04/30/2021 1:03 PM HOME HEALTH CNA us Ren Pelayo MD LAB BLOOD ORDERABLES Final Result [facility] [place] [place] [address] from Last 3 Months or Most Recently Relevant to Health Maintenance Insurance [facility] MEDICARE [facility] Address: [address] [place] [id number] MEDICARE MEDICARE MEDICARE Advance Directives For more information, please contact: [phone] * Full Code (Latest Code Status on File) Date Activated Date Inactivated Comments 07/21/2023 9:59 AM 07/21/2023 3:56 PM Care Teams College Instructor Relationship Specialty Start Date End Date No, Physician PCP - General 02/16/24 Almita Rizzo, RN [address] [facility] [address] [place] [address] Calliope Player 04/04/21 Beth Fernandez MD [address] [facility] [address] [place] [address] Referring Physician Nephrology 04/04/21 Maday Oviedo MD [address] [facility] [address] [place] [address] Neurology 09/12/22 Tomasz Scott DO [address] [place], [place] [id number] Cotton Picker Cardiology 09/16/22
--- OUTSIDE RECORDS SUMMARY | 2024-04-04 10:19 | XMS_ITS ---
Author Organization [facility] Address [address] [place] [address] Care Team Providers Care Slip Bridge Operator Name Role Phone Almita Rizzo RN Unavailable [phone] Beth Fernandez MD Unavailable [phone] Maday Oviedo MD Unavailable [phone] Tomasz Scott DO Unavailable [phone] No, Physician Primary Care Provider [phone] Transplant Episode Kidney Candidate [facility] ([place], [place]) [facility] Center waitlisted on 09/10/2021 Marked as Active on 04/02/2023 Reason: Listed in [facility] Kidney CoordinatorAlmita Rizzo RN Fax: N/A Email: N/A Scores Score Value Updated Exceptions/Reas ons CPRA Not available EPTS (Calc) 52 04/04/2024 [place] 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 Mellitus - Type II Care Team Name Role Phone Fax Email Almita Rizzo RN Kidney Coordinator [phone] N/A N/A Beth Fernandez MD Referring Physician [phone] N/A Hien Mireles Waste Cotton Cleaner [phone] N/A N/A Events Pre-Transplant Referred: 02/07/2021 Evaluation began: 04/04/2021 Committee: 09/09/2021 [facility]OS qualified: 01/21/2021 Center waitlisted: 09/10/2021 Dialysis History Dialysis History Start End Type Comments Center 04/23/2021 Peritoneal [facility] 01/21/2021 04/23/2021 Hemo M/W/F [facility] Center Information Center Phone Fax Address [facility] [phone] [address] [facility] [phone] [place] [id number]
--- OUTSIDE RECORDS SUMMARY | 2024-04-04 10:19 | XMS_ITS | CONTINUITY OF CARE DOCUMENT ---
Author Name juany harrington Address Unknown Organization [facility] Address [address] [place] [address] [address] [place] [address] Phone [phone] Care Team Providers Care Access Spec Name Role Phone Christoph Guerra MD Unavailable ANNITA WALTER MD Unavailable [phone] ANNITA WALTER MD Unavailable [phone] PROBLEMS Condition Status Date Provider Notes Hyperlipidemia active Christoph Guerra MD Shortness of breath active Christoph Gonzalez Restless leg syndrome active Christoph Guerra MD Diabetic autonomic neuropathy active Christoph Guerra MD Diabetes mellitus, type 2 active Chrsitoph greer MD HTN essential active Christoph Guerra MD ESRD on PD active Christoph Guerra MD Cardiology examination active Christoph ramirez MD ENCOUNTERS Date Type Provider Location Encounter Diag nosis - In-person encounter Office Visit Christoph Guerra MD [facility] Cardiology examinationESRD on PDHTN essentialDiabetes mellitus, [...] Payer name Policy type / Coverage type [place] red republican ID [place] MEDICARE Medicare [id number] ADVANCE DIRECTIVES Name Date DISCUSSED - NO [...]
--- OUTSIDE RECORDS SUMMARY | 2024-04-04 10:19 | XMS_ITS | Encounter Summary ---
Author Organization [facility] Healthcare Address [address] [place] [address] Care Team Providers Care Drum Printer Name Role Phone Jessie Dickson NP Primary Care Provider [phone] Almita Rizzo RN Unavailable [phone] Beth Fernandez MD Unavailable [phone] Maday Oviedo MD Unavailable [phone] Tomasz Scott DO Unavailable [phone] Bashir Alston MD Primary Care Provider [phone] No, Physician Primary Care Provider [phone] Reason for Visit * Reason Onset Date Comments READY TO SCHEDULE 04/28/2023 Encounter Details Date Type Department Care Team (Late st Contact Info) Description 04/28/2023 Telephone [facility] Specialty Services [address] [place] [address] Miscellaneous, Not In File READY TO SCHEDULE [...] on file Legal Sex Female 11:50 PM BUSINESS CONTINUITY PLANNER Gender Identity Not on file Sexual Orientation Not on file documented as of this encounter Plan of Treatment Not on file documented as of this encounter Visit Diagnoses Not on filedocumented in this encounter Additional Health Concerns Infection Onset Date Last Indicated Resolved Time COVID: Suspected 12/01/2023 12/01/2023 12/01/2023 7:33 PM CDT documented as of this encounter Care Teams Drum Printer Relationship Specialty Start Date End Date Jessie Dickson NP [address] [place] [address] PCP - General Nurse Practitioner 03/05/21 07/07/23 Bashir Alston MD [address] [facility] [address] [place] [address] PCP - General Transplant 07/08/23 07/08/23 No, Physician PCP - General 02/16/24 Almita Rizzo, RN [address] [facility] [address] [place] [address] Canine Enforcement Officer 04/04/21 Beth Fernandez MD [address] [place] [address] Referring Physician Nephrology 04/04/21 Maday Oviedo MD [address] [place] [address] Neurology 09/12/22 Tomasz Scott DO [address] [place] [address] Back Shoe Worker Cardiology 09/16/22 documented as of this encounter
--- NOTE | 2024-04-04 11:35 | PC.NURSE ---
Pt c/o left shoulder & arm pain for 2 days unrelieved with Tyl. denies injury. Pt reports 2 years ago had Dialysis shunt placed, never used, pt feels pain is related to Dialysis shunt. pt currently performed PD at night
--- OUTSIDE RECORDS SUMMARY | 2024-04-04 12:29 | XMS_ITS | Clinical Summary ---
Author Organization [facility] Address [address] [place] [address] Phone Care Team Providers Care Brick Burner Head Name Role Phone Jessie Dickson MD Primary Care Provider [phone] Allergies Active Allergy Reactions Criticality Noted Date [...] times daily. 05/28/2018 Active ergocalciferol (VITAMIN D2) 48570 units capsule TK 1 C PO Q [...] the skin Active Blood Glucose Monitoring Suppl (Club 42cm Verio Flex System) w/Device kit USE DIRECTED [...] Comments Influenza Vaccine (#1) 2023 Care Teams Brick Burner Head Relationship Specialty Start Date End Date Jessie Dickson MD [address] [place] [id number] PCP - General 05/31/18
--- OUTSIDE RECORDS SUMMARY | 2024-04-04 12:30 | XMS_ITS | Patient Health Summary ---
Author Organization [facility] Address [address] [place] [address] Care Team Providers Care Asbestos Cement Sheet Supervisor Name Role Phone Jessie Dickson BENEFITS ANALYST-GUM PULLER Primary Care Pro vider Note from [facility],non-owned Affiliates and Associated Physician Practices is amultiple site organization consisting of ambulatory clinics and hospital sitesin [place], [place], [place] and [place]. This disclosure is being madepursuant to the Care Everywhere program and may not contain all information available regarding this patient. Last updated 17.[facility] Allergies * Metronidazole(Skin Reactions) -Medium Criticality * [...] nightly 11 refills remaining * ergocalciferol (DRISDOL) 94824 units capsule(Started 07/26/2018) Take 1 capsule by [...] 1 the morning of procedure) * HYDROcodone-acetaminophen ([place]) 5-325 MG tablet(Started 02/05/2022) Take 1 (one) [...] Comments Blood Pressure 145/85 02/05/2022 12:[address] garcia aware; ok to d/cv Pulse 74 02/05/2022 11:55 AM [facility] [place] Temperature 36.8 C (98.2 F) 09/13/2019 8:22 AM CDT Respiratory Rate 12 02/05/2022 11:5 0 AM [facility] [place] Oxygen Saturation 100% 02/05/2022 11: 55 AM [facility] [place] Inhaled Oxygen Concentration - - Weight 108.9 kg (240 lb) 09/13/2019 8:2 2 AM CDT Height 160 cm (5' 3 ) 09/13/2019 8:22 AM CDT Body Mass Index 42.51 09/13/2019 8:22 AM CDT Procedures * US AV HEMODIALYSIS ACCESS(Performed 02/19/2022) Performed for End stage renal disease ([facility]) * IR AV FISTULA CREATION(Performed 02/05/2022) Performed for End stage renal disease ([facility]) * CBC W/O DIFFERENTIAL(Performed 01/21/2022) Performed for ESRD (end stage renal disease) ([facility]) * PT-INR(Performed 01/21/2022) Performed for ESRD (end stage renal disease) ([facility]) * PTT(Performed 01/21/2022) Performed for ESRD (end stage renal disease) ([facility]) * VAS RIGHT MAPPING FOR HEMODIALYSIS(Performed 01/09/2022) Performed for End stage renal disease ([facility]) * IR CENTRAL LINE REMOVAL(Performed 05/08/2021) Performed for End stage renal disease ([facility]) * IR CENTRAL LINE INSERT [...] laboratory test result, Drug-induced lupus erythematosus * LEGGETT/REFRACTORY REPAIRER (MOHSEN) ANTIBODY IGG(Performed 09/13/2019) Performed for Positive [...] Positive JAYA (antinuclear antibody), Optic neuritis * MPO/[place] 3 AUTOANTIBODIES PANEL(Performed 09/01/2018) Performed for Abnormal [...] Performed for Abnormal laboratory test result, Positive JAAY (antinuclear antibody), Optic neuritis * THYROGLOBULIN ANTIBODY(Performed [...] Positive JAYA (antinuclear antibody), Optic neuritis * REFRACTORY REPAIRER ANTIBODY(Performed 09/01/2018) Performed for Abnormal laboratory test [...] BASIC METABOLIC PANEL (CALCIUM TOTAL)(Performed 06/07/2018) * REFRACTORY REPAIRER ANTIBODY(Performed 05/28/2018) * LEGGETT (SM) ANTIBODY MOHSEN(Performed 05/28/2018) * DNA ANTIBODY DOUBLE STRANDED(Performed 05/28/2018) * GLUCOSE - POINT OF CARE(Performed 05/28/2018) * CRYOGLOBULIN QUANTITATIVE(Performed 05/28/2018) * C-REACTIVE PROTEIN(Performed 05/28/2018) * HEPATITIS C AB SCREEN RFLX NAAT QUANT(Performed 05/28/2018) * HEPATITIS B SURFACE ANTIGEN W RFLX CONFIRMATION(Performed 05/28/2018) * MPO/NY 3 AUTOANTIBODIES PANEL(Performed 05/28/2018) * ANTI-NEUTROPHIL CYTOPLASMIC [...] diabetes mellitus with diabetic nephropathy, unspecified whether retirement insulin use (HCC) * HEMOGLOBIN A1C - [...] US AV HEMODIALYSIS ACCESS (02/19/2022 10:00 AM [facility] [place]) Anatomical Region Laterality Modality Upper Extremity X-Ray Angiograph y Narrative 02/19/2022 12:40 PM [facility]NAGER [place] Elio Garcia MD 02/19/2022 12:50 PM VASCULAR [...] av fistula. Elio Garcia M.D. Interventional Nephrology [facility] [phone] CC: MD Dr. Modesto Canchola MD Beth Tripp MD US ORDERABLES * IR AV FISTULA CREATION (02/05/2022 11:55 AM [facility]GER [place]) Anatomical Region Laterality Modality X-Ray Angiograph y Narrative 02/05/2022 4:32 PM [facility]GER [place] Elio Garcia MD 02/05/2022 5:07 PM Procedure Date: 02/05/2022 Attending Surgeon and performing the procedure: Elio Garcia MD Sales Project Engineer: Nohemy Martinez RN Medical indication for the [...] 1. ENDOVASCULAR AV FISTULA CREATION USING THE [employer]; G2171 2. MODERATE CONSCIOUS SEDATION INITIAL 15 MIN; 25916 3. MODERATE CONSCIOUS SEDATION ADDITIONAL 15 MIN; [id number] Findings: 1. The right medial brachial vein was cannulated with a 21 gauge micropuncture needle using ultrasound guidance for vascular access. The needle tip was observed entering the lumen of the vein real-time and permanent recording was obtained. 2. The lateral ulnar vein was selectively catheterized. An angiogram performed showed the lateral ulnar vein draining directly into a short site interpreter attack communicates with the radial veins and [...] observed with predominant contrast washout through the site interpreter to the superficial vessels. DESCRIPTION OF THE [...] distally using fluoroscopic guidance. Subsequently, a 6 Uruguayan vascular sheath was placed. Using a 0.018 V-18 wire, the 4 Uruguayan KA2 catheter was navigated to the ulnar vein in the region of the arteriovenous fistula creation target zone and venography performed: 2. The lateral ulnar vein was selectively catheterized. An angiogram performed showed the lateral ulnar vein draining directly into a short site interpreter attack communicates with the radial veins and [...] followed by the placement of a 4 Uruguayan catheter. After the 4 Uruguayan catheter was placed, a cocktail including 2000 [...] without any filling defects. Subsequently, a 4 Uruguayan vascular sheath was placed and connected to [...] were removed. Contrast injection into the 6 Uruguayan arterial sheath confirmed arteriovenous fistula creation between [...] not part of the AV fistula, 4 Uruguayan KA2 catheter was advanced over the venous guide wire. With the aid of a 0.035 in Bentson guidewire the 4 Uruguayan K a 2 catheter was used to [...] observed with predominant contrast washout through the site interpreter to the superficial vessels. Next, the KA2 [...] RECOMMENDATIONS: 1. The patient should follow-up with [facility] for ultrasound evaluations at approximately 1, 2, and 4 weeks from the date of procedure. The arteriovenous fistula should not be cannulated until cleared by either Dr. Azevedo or Dr. Garcia. The right arm should not be used for blood pressure measurements or phlebotomy. Dr Elio Garcia M.D. Interventional Nephrology [facility] [phone] Dr. Modesto Tripp MD [facility] Beth Tripp MD IR ORDERABLES * PTT (01/21/2022 9:30 AM [facility]GER [place]) PTT 29.6 23.0 - 38.4 sec 01/21/2022 9:58 AM [facility]NAGER [place] [facility] Blood BLOOD SPECIMEN / Unknown Lab Venipuncture / Unknown 01/21/2022 9:30 AM [facility] [place] 01/21/2022 9:40 AM [facility] [place] Narrative [facility] - 01/21/2022 9:58 AM [facility]GER [place] Heparin Therapeutic Range for PTT: 69.0 - 110.0 seconds. Elio Garcia MD LAB - COAGULATION ORDERABLES [facility] [address] [place] [id number] * PT-INR (01/21/2022 9:30 AM [facility]GER [place]) PT 12.6 12.1 - 14.8 sec 01/21/2022 9:58 AM [facility]GER [place] [facility] INR 0.9 0.9 - 1.1 01/21/2022 9:58 AM [facility]NAGER [place] [facility] Blood BLOOD SPECIMEN / Unknown Lab Venipuncture / Unknown 01/21/2022 9:30 AM [facility] [place] 01/21/2022 9:40 AM [facility]GER [place] [facility] - 01/21/2022 9:58 AM [facility]GER [place] Conventional Warfarin Anticoagulant Therapy: INR Reference Range: 2.0-3.0 Intensive Warfarin Anticoagulant Therapy: INR Reference Range: 2.5-3.5 Elio Garcia MD LAB - COAGULATION ORDERABLES [facility] [address] [place] [id number] * (ABNORMAL) CBC W/O DIFFERENTIAL (01/21/2022 9:30 AM [facility] [place]) Only the most recent of2 resultswithin the time period is included. WBC 10.4 4.4 - 10.7 x10E9/L 01/21/2022 9:50 AM MANAGER [place] [facility] RBC 3.84 3.80 - 5.20 x10E12/L 01/21/2022 9:50 AM [facility] Hemoglobin 11.0(L) 12.0 - 15.6 gm/dL 01/21/2022 9:50 AM [facility] Hematocrit 34.4(L) 35.9 - 45.5 % 01/21/2022 9:50 AM [facility] MCV 89.6 80.7 - 98.3 fl 01/21/2022 9:50 AM [facility] MCH 28.6 26.7 - 34.0 pg 01/21/2022 9:50 AM [facility] MCHC 32.0 30.8 - 35.9 gm/dL 01/21/2022 9:50 AM [facility] Platelet Count 344 153 - 416 x10E9/L 01/21/2022 9:50 AM [facility] RDW-CV 13.2 12.1 - 14.9 % 01/21/2022 9:50 AM [facility] MPV 9.2(L) 9.4 - 12.9 fl 01/21/2022 9:50 AM [facility] Blood BLOOD SPECIMEN / Unknown Lab Venipuncture / Unknown 01/21/2022 9:30 AM [facility]GER [place] 01/21/2022 9:40 AM [facility] Elio Garcia MD LAB - HEMATOLOGY ORDERABLES Performing Organization Address [facility]/State/[facility] Co de Phone Number [facility] [address] [place], [place] [phone] * VAS RIGHT MAPPING FOR HEMODIALYSIS (01/09/2022 10:52 AM MANAGER [place]) Anatomical Region Laterality Modality X-Ray Angiograph y [...] the forearm or the upper. The patient's dynamics ax developer is Beth tripp MD. VS: There [...] for 01/21/2022. Yola Garcia M.D. Interventional Neprology [facility] [phone] Dr. Beth tripp MD [facility] dialysis Beth Tripp MD VASCULAR LAB ORDER [...] Tamir Azevedo M.D. Vascular and Interventional Radiology [facility] [phone] CC: Patient's dynamics ax developer: Dr. Modesto Tripp Dialysis unit: [facility] Beth Tripp MD IR ORDERABLES * IR CENTRAL LINE INSERT TUNNEL (04/17/2021 2:38 PM [facility]GER [place]) Anatomical Region Laterality Modality Chest, Upper Extremity X-Ray Ang iography Narrative 04/17/2021 2:39 PM MANAGER [place] Aaliyah Azevedo MD 04/17/2021 2:45 PM VASCULAR AND INTERVENTIONAL RADIOLOGY EXAMINATION: LEFT INTERNAL JUGULAR TUNNELED CENTRAL VENOUS CATHETER PLACEMENT. RIGHT INTERNAL JUGULAR TUNNELED CENTRAL VENOUS CATHETER REMOVAL Date: 04/17/2021 History: Bakari Smith is a 41 year old female with history of hypertension, diabetes, and end-stage renal disease who is currently dialyzing through a right thoracic tunneled hemodialysis catheter that was placed at [facility]. The patient states that the catheter has [...] completed, removal can be scheduled by calling [facility] at [phone]. Tamir Azevedo M.D. Vascular and Interventional Radiology [facility] [phone] CC: Patient's dynamics ax developer: Dr. Modesto Tripp Dialysis unit: [facility] Beth Tripp MD IR ORDERABLES * (ABNORMAL) URINALYSIS REFLEX TO MICROSCOPIC NO CULTURE (09/13/2019 9:58 AM CDT) Only the most recent of3 resultswithin the time period is included. Color UA Yellow Straw, Yellow, Colorless 09/13/2019 10:[facility] Clarity UA Slt Cloudy Clear, Slt Cloudy 09/13/2019 10:45 AM CDT [facility] Specific [place] UA 1.023 1.005 - 1.030 09/13/2019 10:45 AM [facility] pH UA 6.0 5.0 - 8.0 pH 09/13/2019 10:45 AM T [facility] Protein UA 3+(A) Negative mg/dL 09/13/2019 10:45 AM [facility] Glucose UA 2+(A) Negative mg/dL 09/13/2019 10:45 AM CDT [facility] Ketone UA Negative Negative mg/dL 09/13/2019 10:45 AM T [facility] Bilirubin UA Negative Negative mg/dL 09/13/2019 10:45 AM [facility] Blood UA Negative Negative 09/13/2019 10:45 AM T [facility] Nitrite UA Negative Negative 09/13/2019 10:45 AM CDT [facility] Leukocyte Esterase Negative Negative 09/13/2019 10:45 AM CDT [facility] Urobilinogen UA Negative Negative mg/dL 09/13/2019 10:45 AM T [facility] RBC UA 0-2 None Seen, 0-2, 3-5 /HPF 09/13/2019 10:45 AM T [facility] WBC UA 0-5 None Seen, 0-5 /HPF 09/13/2019 10:45 AM [facility] Bacteria UA Trace None, Trace /HPF 09/13/2019 10:45 AM [facility] Squamous Epithelial Cells UA 0-2 None Seen, 0-2 /HPF 09/13/2019 10:45 AM T [facility] Hyaline Casts UA 0-2 None Seen, 0-2 /LPF 09/13/2019 10:45 AM [facility] Urine URINE SPECIMEN OBTAINED BY CLEAN CATCH PROCEDURE / Unknown Collection / Unknown 09/13/2019 9:58 AM CDT 09/13/2019 10:23 AM CDT Narrative [facility] - 09/13/2019 10:45 AM CDT Addie Rodriguez MD LAB - URINALYSIS ORDERABLES [address] [id number] [phone] * (ABNORMAL) JAYA BLOOD SINGLE PATTERN (09/13/2019 9:42 AM CDT) JAYA Pattern Homogeneo us(A) 09/16/2019 7:56 AM CDT [facility] ([facility]) JAYA Titer 1:320(A) 09/16/2019 7:56 AM CDT [facility] ([facility]) Comment: Performed By: [facility] [address] [place] [id number] Vocal Artist: Sahil Chin MD, MS Blood BLOOD SPECIMEN / Unknown Lab Venipuncture / Unknown 09/13/2019 9:42 AM CDT 09/13/2019 10:24 AM CDT Addie Mili Rodriguez MD LAB - CHEMISTRY O RDERABLES [facility] [employer] [facility]) [address] * SS-A (SJOGREN'S) 52+60 ANTIBODIES (09/13/2019 9:42 AM CDT) SS-A 52 Antibody 1 0 - 40 AU/mL 09/15/2019 9:19 AM CDT [facility] ([facility]) Comment: INTERPRETIVE INFORMATION: SSA-52 (Ro52) (MOHSEN) Antibody, [...] - 40 AU/mL 09/15/2019 9:19 AM CDT [facility] ([facility]) Comment: REFERENCE INTERVAL: SSA-60 (Ro60) (MOHSEN) Antibody, IgG 29 AU/mL or Less ............. Negative 30 - 40 AU/mL ................ Equivocal 41 AU/mL or Greater .......... Positive Performed By: [facility] [address] [place] [address] Vocal Artist: Sahil Chin MD, MS Blood BLOOD SPECIMEN / Unknown Lab Venipuncture / Unknown 09/13/2019 9:42 AM CDT 09/13/2019 10:23 AM CDT Addie Rodriguez MD LAB - CHEMISTRY O NARDA Performing Organization Address [facility] Co de Phone Number [facility]) [address] * LEGGETT/REFRACTORY REPAIRER (MOHSEN) ANTIBODY IGG (09/13/2019 9:42 AM CDT) Leggett/REFRACTORY REPAIRER (MOHSEN) Antibody IgG 3 0 - 40 AU/mL 09/15/2019 9:19 AM CDT [facility] [employer] ([facility]) Comment: INTERPRETIVE INFORMATION: Leggett/REFRACTORY REPAIRER (MOHSEN) Antibody, IgG 29 AU/mL or Less ............. Negative 30 - 40 AU/mL ................ Equivocal 41 AU/mL or Greater .......... Positive Leggett/REFRACTORY REPAIRER antibodies are frequently seen in patients with mixed connective tissue disease (MCTD) and are also associated with other systemic autoimmune rheumatic diseases (SARDs) such as systemic lupus erythematosus (SLE), systemic sclerosis, and myositis. Antibodies targeting the Leggett/REFRACTORY REPAIRER antigenic complex also recognize Leggett antigens, therefore, the Leggett antibody response must be considered when interpreting these results. Performed By: [facility] [address] [place] [address] Vocal Artist: Sahil Chin MD, MS Blood BLOOD SPECIMEN / Unknown Lab Venipuncture / Unknown 09/13/2019 9:42 AM CDT 09/13/2019 10:23 AM CDT Addie Rodriguez MD LAB - CHEMISTRY O NARDA Performing Organization Address [facility]/ZIP Co de Phone Number [facility] ([facility]) [address] * (ABNORMAL) CHROMATIN ANTIBODY (09/13/2019 9:42 AM CDT) Only the most recent of3 resultswithin the time period is included. Chromatin Antibody 52(H) 0 - 19 Units 09/17/2019 1:03 PM CDT [facility] [employer] ([facility]) Comment: INTERPRETIVE INFORMATION: Chromatin Antibody, IgG 19 Units or less: Negative 20 - 60 Units: Moderate Positive 61 Units or greater: Strong Positive The presence of anti-chromatin antibodies may be useful in the diagnosis of systemic lupus erythematosus (SLE) or drug-induced lupus (DIL) and have been reported to be predictive of lupus nephritis, especially when antibody levels are high. Performed By: [facility] [address] [place] [address] Vocal Artist: Sahil Chin MD, MS Blood BLOOD SPECIMEN / Unknown Lab Venipuncture / Unknown 09/13/2019 9:42 AM CDT 09/13/2019 10:24 AM CDT Addie Rodriguez MD LAB - SEROLOGY OR DERABLES [facility]) [address] [place] [address], [facility] * (ABNORMAL) DNA ANTIBODY DS CRITHIDIA TITER (09/13/2019 9:42 AM CDT) Only the most recent of2 resultswithin the time period is included. dsDNA Antibody IgG 1:20(H) <1:10 2019 4:26 PM CDT [facility] [employer] [facility] ([facility]) Comment: INTERPRETIVE INFORMATION: Double-Stranded DNA (dsDNA) Antibody, [...] recommendations for testing may be found at http://[email or web address]/Topics/AutoimmuneDz/ConnectiveTissueDz/i ndex.html. Performed By: [facility] [address] [place] [address] Vocal Artist: Sahil Chin MD, MS Blood BLOOD SPECIMEN / Unknown Lab Venipuncture / Unknown 09/13/2019 9:42 AM CDT 09/13/2019 10:23 AM CDT Addie Rodriguez MD LAB - SEROLOGY OR DERABLES Performing Organization Address City/[facility]/ZIP Co de Phone Number [facility] [employer] [facility]) [address] [place] [address] * LEGGETT (SM) ANTIBODY MOHSEN (09/13/2019 9:42 AM CDT) Only the most recent of3 resultswithin the time period is included. Leggett (MOHSEN) Antibody 1 0 - 40 AU/mL 09/15/2019 6:32 AM CDT [facility] ([facility]) Comment: INTERPRETIVE INFORMATION: Leggett (MOHSEN) Antibody, IgG 29 AU/mL or Less ............. Negative 30 - 40 AU/mL ................ Equivocal 41 AU/mL or Greater .......... Positive Leggett antibody is highly specific (greater than 90 percent) for systemic lupus erythematosus (SLE) but only occurs in 30-35 percent of SLE cases. The presence of antibodies to Leggett has variable associations with SLE clinical manifestations. Performed By: [facility] [address] [place] [address] Vocal Artist: Sahil Chin MD, MS Blood BLOOD SPECIMEN / Unknown Lab Venipuncture / Unknown 09/13/2019 9:42 AM CDT 09/13/2019 10:23 AM CDT Addie Rodriguez MD LAB - CHEMISTRY O RDERABLES Performing Organization Address City/[facility]/ZIP Co de Phone Number [facility]) [address] [place] [address] * (ABNORMAL) C-REACTIVE PROTEIN (09/13/2019 9:42 AM CDT) Only the most recent of4 resultswithin the time period is included. Pathologist [facility] C-Reactive Protein 1.2(H) <=0.5 mg/dL 09/13/2019 11:22 AM CDT [facility] Blood BLOOD SPECIMEN / Unknown Lab Venipuncture / Unknown 09/13/2019 9:42 AM CDT 09/13/2019 10:24 AM CDT Addie Rodriguez MD LAB - CHEMISTRY O RDERALD [facility] [address] [address], [facility] [phone] * (ABNORMAL) JAYA BLOOD SCREEN W/REFLEX TITER (09/13/2019 9:42 AM CDT) Only the most recent of4 resultswithin the time period is included. [facility] JAYA IgG Detected (A) None Detected 09/15/2019 3:12 PM CDT [facility] ([facility]) Comment: Antibodies to Anti-Nuclear Antibodies (JAYA) detected. [...] dsDNA, histones, SS-A (Ro), SS-B (La), Leggett, Leggett/REFRACTORY REPAIRER, Scl-70, Mariajose-1, centromeric proteins, other antigens extracted from the HEp-2 cell nucleus. JAYA CAITLIN assays have been reported to have lower sensitivities than JAYA IFA for systemic autoimmune rheumatic diseases (SARD). Negative results do not necessarily rule out SARD. Performed By: [facility] [address] [place] [address] Vocal Artist: Sahil Chin MD, MS Blood BLOOD SPECIMEN / Unknown Lab Venipuncture / Unknown 09/13/2019 9:42 AM CDT 09/13/2019 10:24 AM CDT Addie Rodriguez MD LAB - CHEMISTRY O RDMANISHA Performing Organization Address [facility]/ZIP Co de Phone Number [facility] [employer] [facility]) [address] * HISTONE ANTIBODY (09/13/2019 9:42 AM CDT) Only the most recent of3 resultswithin the time period is included. Histone Antibody IgG 0.7 0.0 - 0.9 Units 09/16/2019 10:13 AM CDT [facility] [employer] [facility] ([facility]) Comment: INTERPRETIVE INFORMATION: Histone Ab, IgG 0.9 Units or less ............ Negative 1.0 - 1.5 Units .............. Weak Positive 1.6 - 2.5 Units .............. Moderate Positive 2.6 Units or greater ......... Strong Positive Performed By: [facility] [address] [place] [address] Vocal Artist: Sahil Chin MD, MS Blood BLOOD SPECIMEN / Unknown Lab Venipuncture / Unknown 09/13/2019 9:42 AM CDT 09/13/2019 10:23 AM CDT Addie Rodriguez MD LAB - CHEMISTRY O NARDA Performing Organization Address [facility] Co de Phone Number [facility] [employer] ([facility]) [address] * SS-B (SJOGREN'S) ANTIBODY (09/13/2019 9:42 AM CDT) Only the most recent of3 resultswithin the time period is included. SS-B Antibody 0 0 - 40 AU/mL 09/15/2019 6:32 AM CDT [facility] [employer] ([facility]) Comment: INTERPRETIVE INFORMATION: SSB (La) (MOHSEN) Ab, [...] (PSS) also have this antibody. Performed By: [place] [address] Vocal Artist: Sahil Chin MD, MS Blood BLOOD SPECIMEN / Unknown Lab Venipuncture / Unknown 09/13/2019 9:42 AM CDT 09/13/2019 10:23 AM CDT Addie Rodriguez MD LAB - CHEMISTRY O RDERABLES [facility] ([facility]) [address] [place] [address] * (ABNORMAL) ERYTHROCYTE SEDIMENTATION RATE (09/13/2019 9:42 AM CDT) Only the most recent of5 resultswithin the time period is included. Pathologist [facility] Erythrocyte Sedimentation Rate Westergren 85(H) 0 - 20 MM/HR 09/13/2019 10:51 AM CDT [facility] Blood BLOOD SPECIMEN / Unknown Lab Venipuncture / Unknown 09/13/2019 9:42 AM CDT 09/13/2019 10:24 AM CDT Addie Rodriguez MD LAB - HEMATOLOGY ORDERABLES [address] [id number] [phone] * (ABNORMAL) CBC WITH DIFFERENTIAL (09/13/2019 9:42 AM CDT) Only the most recent of3 resultswithin the time period is included. WBC 5.1 3.5 - 10.5 10 3/uL 09/13/2019 10:40 AM CDT [facility] RBC 4.53 3.90 - 5.00 10 6/uL 09/13/2019 10:40 AM CDT [facility] Hemoglobin 11.5(L) 12.0 - 15.5 g/dL 09/13/2019 10:40 AM [facility] Hematocrit 37.1 35.0 - 45.0 % 09/13/2019 10:40 AM [facility] MCV 81.9 81.0 - 97.0 fL 09/13/2019 10:40 AM [facility] MCH 25.4(L) 28.0 - 34.0 pg 09/13/2019 10:40 AM [facility] MCHC 31.0(L) 32.0 - 36.0 g/dL 09/13/2019 10:40 AM [facility] Platelet Count 278 150 - 400 10 3/uL 09/13/2019 10:40 AM [facility] RDW-SD 41.2 36.0 - 50.0 fL 09/13/2019 10:40 AM [facility] RDW-CV 13.8 11.2 - 14.8 % 09/13/2019 10:40 AM [facility] MPV 10.1 9.3 - 12.8 fL 09/13/2019 10:40 AM [facility] nRBC Absolute 0.00 0 10 3/uL 09/13/2019 10:40 AM [facility] nRBC Auto 0.0 0 /100 WBC 09/13/2019 10:40 AM [facility] Neutrophils % 47.2 35.0 - 70.0 % 09/13/2019 10:40 AM [facility] Lymphocytes % 41.8 19.7 - 55.1 % 09/13/2019 10:40 AM [facility] Monocytes % 8.8 3.0 - 15.0 % 09/13/2019 10:40 AM [facility] Eosinophils % 0.8 0.0 - 6.0 % 09/13/2019 10:40 AM [facility] Basophil % 0.4 0.0 - 1.5 % 09/13/2019 10:40 AM [facility] Neutrophils Absolute 2.4 1.6 - 7.0 10 3/uL 09/13/2019 10:40 AM [facility] Lymphocyte Absolute 2.2 0.8 - 2.9 10 3/uL 09/13/2019 10:40 AM [facility] Monocytes Absolute 0.45 0.14 - 0.66 10 3/uL 09/13/2019 10:40 AM [facility] Eosinophils Absolute 0.04 0.00 - 0.45 10 3/uL 09/13/2019 10:40 AM [facility] Basophils Absolute 0.02 0.00 - 0.06 10 3/uL 09/13/2019 10:40 AM [facility] Immature Granulocytes % 1.0 0.0 - 1.0 % 09/13/2019 10:40 AM [facility] Blood BLOOD SPECIMEN / Unknown Lab Venipuncture / Unknown 09/13/2019 9:42 AM CDT 09/13/2019 10:24 AM CDT Addie Rodriguez MD LAB - HEMATOLOGY ORDERABLES [address] [address] [phone] * (ABNORMAL) COMPREHENSIVE METABOLIC PANEL (09/13/2019 9:42 AM CDT) Only the most recent of5 resultswithin the time period is included. BUN 34(H) 7 - 26 mg/dL 09/13/2019 11:30 AM [facility] Creatinine 3.8(H) 0.6 - 1.2 mg/dL 09/13/2019 11:30 AM [facility] Sodium 137 136 - 145 mmol/L 09/13/2019 11:30 AM [facility] Potassium 4.6(H) 3.5 - 4.5 mmol/L 09/13/2019 11:30 AM [facility] Chloride 107 98 - 107 mmol/L 09/13/2019 11:30 AM [facility] CO2 23 22 - 29 mmol/L 09/13/2019 11:30 AM [facility] Glucose 174(H) 70 - 115 mg/dL 09/13/2019 11:30 AM [facility] Calcium 8.4 8.4 - 10.2 mg/dL 09/13/2019 11:30 AM [facility] Protein Total 6.5 6.0 - 8.3 g/dL 09/13/2019 11:30 AM [facility] Albumin 2.0(L) 3.4 - 5.0 g/dL 09/13/2019 11:30 AM [facility] Bilirubin Total 0.1(L) 0.2 - 1.2 mg/dL 09/13/2019 11:30 AM [facility] Alkaline Phosphatase 126 40 - 150 Units/L 09/13/2019 11:30 AM [facility] ALT 20 0 - 55 Units/L 09/13/2019 11:30 AM [facility] AST 23 5 - 34 Units/L 09/13/2019 11:30 AM [facility] Anion Gap 12 8 - 18 09/13/2019 11:30 AM [facility] BUN/Creatinine Ratio 9 7 - 23 09/13/2019 11:30 AM [facility] Osmolality Calculated 296 270 - 300 mOsm/kg 09/13/2019 11:30 AM [facility] Albumin/Globulin Ratio 0.4(L) 1.1 - 2.3 09/13/2019 11:30 AM [facility] eGFR 16(L) >60 mL/min/1.7 3 m2 09/13/2019 11:30 AM [facility] Blood BLOOD SPECIMEN / Unknown Lab Venipuncture / Unknown 09/13/2019 9:42 AM CDT 09/13/2019 10:24 AM CDT Addie Rodriguez MD LAB - CHEMISTRY O RDERABLES Performing Organization Address [facility]/State/[facility] Co de Phone Number [address] [address] [phone] * OPH VISUAL FIELD TEST [facility]U (11/04/2018 [...] Unknown 11/01/2018 10:11 AM CDT Tessie Pritchard BENEFITS ANALYST-GUM PULLER LAB - POINT O F CARE ORDERABLES [...] 19 units 09/02/2018 10:06 PM CDT [facility] ([facility]) Comment: Negative <20 Weak positive 20 - 39 Moderate positive 40 - 59 Strong positive >59 Blood BLOOD SPECIMEN / Unknown Lab Venipuncture / Unknown 09/01/2018 10:21 AM CDT 09/01/2018 10:40 AM CDT Narrative [facility] ([facility]) - 09/02/2018 10:06 PM CDT Performed at: 01 - [address] [id number] Nurse Behavioral Health Care: Negro Sullivan MD, Phone: [phone] Damaris Shetty DO LAB - SEROLOGY ORDER NAZ [facility] ([facility]) [address] [place] [address] * (ABNORMAL) MELISSA STAINING PATTERNS REFLEXED (09/01/2018 10:21 AM CDT) Only the most recent of3 resultswithin the time period is included. Homogeneous Pattern 1:160(H) 09/02/2018 2:11 PM CDT [facility] ([facility]) Note Comment 09/02/2018 2:11 PM CDT [facility] ([facility]) Comment: A positive JAYA result may occur in healthy individuals (low titer) or be associated with a variety of diseases. See interpretation chart which is not all inclusive: Pattern Antigen Detected Suggested Disease Association Homogeneous DNA(ds,ss), SLE - High titers Nucleosomes, Histones Drug-induced SLE Speckled Sm, REFRACTORY REPAIRER, SCL-70, SLE,MCTD,PSS (diffuse form), SS-A/SS-B Sjogrens Nucleolar SCL-70, PM-1/SCL High titers Scleroderma, PM/DM Centromere Centromere PSS (limited form) w/Crest syndrome variable Nuclear Dot [id number] Primary Biliary Cirrhosis Nuclear GP210, Primary Biliary Cirrhosis Membrane roxanne A,B,C Blood BLOOD SPECIMEN / Unknown Lab Venipuncture / Unknown 09/01/2018 10:21 AM CDT 09/01/2018 10:41 AM CDT Narrative [facility] ([facility]) - 09/02/2018 2:11 PM CDT Performed at: [address] [place] [address] [address] [place], [place] [id number] Nurse Behavioral Health Care: Neil Maloney PhD, Phone: [phone] Damaris Shetty DO LAB - PATHOLOGY/CYTO LOGY ORDERABLES Performing Organization Address [facility] de Phone Number [facility] [address] [place] [address] * REFRACTORY REPAIRER ANTIBODY (09/01/2018 10:21 AM CDT) Only the most recent of2 resultswithin the time period is included. SM/REFRACTORY REPAIRER Antibody 5.4 0.0 - 19.9 Units 09/03/2018 10:34 AM CDT [facility] Comment: MOHSEN Antibody Numeric Result Interpretation: <20.0 Units: Negative 20.0 - 39.0 Units: Weakly Positive >39.0 Units: Positive Blood BLOOD SPECIMEN / Unknown Lab Venipuncture / Unknown 09/01/2018 10:21 AM CDT 09/01/2018 10:40 AM CDT Damaris Shetty DO LAB - CHEMISTRY [place]TEIRO Performing Organization Address [facility] Co de Phone Number [address] [phone] * RHEUMATOID FACTOR BLOOD QUANTITATIVE (09/01/2018 10:21 AM CDT) Rheumatoid Factor <15 <30 IU/mL 09/01/2018 4:17 PM CDT [facility] Blood BLOOD SPECIMEN / Unknown Lab Venipuncture / Unknown 09/01/2018 10:21 AM CDT 09/01/2018 10:40 AM CDT Damaris Clearyancelmo BARCENAS LAB - CHEMISTRY ORDGarrison MONTEIRO Performing Organization Address City/[facility]/ZIP Co de Phone Number [address] [phone] * THYROID PEROXIDASE ANTIBODY (09/01/2018 10:21 AM CDT) Pathologist [facility] Thyroid Peroxidase TPO Antibody 16 0 - 34 IU/mL 09/02/2018 3:07 AM CDT [facility] ([facility]) Blood BLOOD SPECIMEN / Unknown Lab Venipuncture / Unknown 09/01/2018 10:21 AM CDT 09/01/2018 10:40 AM CDT Narrative [facility] ([facility]) - 09/02/2018 3:07 AM CDT Performed at: 01 - [facility] [address] [place], [place] [id number] Nurse Behavioral Health Care: Neil Maloney PhD, Phone: [phone] Damaris Clearyancelmo BARCE[facility]S LAB - CHEMISTRY [place] MONTE[place]O [facility] ([facility]) [address] [place] [address] * THYROGLOBULIN ANTIBODY (09/01/2018 10:21 AM CDT) Thyroglobulin Antibody <1.0 0.0 - 0.9 IU/mL 09/02/2018 1:10 PM CDT [facility] ([facility]) Comment:Thyroglobulin Antibo dy measured by Beatriz Zachariah Methodology Blood BLOOD SPECIMEN / Unknown Lab Venipuncture / Unknown 09/01/2018 10:21 AM CDT 09/01/2018 10:39 AM CDT Narrative [facility] ([facility]) - 09/02/2018 1:10 PM CDT Performed at: [address] [place] [address] [address] [place], [place] [id number] Nurse Behavioral Health Care: Neil Maloney PhD, Phone: [phone] Damaris Shetty LAB - CHEMISTRY [facility] Performing Organization Address City/[facility]/ZIP Co de Phone Number [facility] ([facility]) [address] [place] [address] * SS-A (SJOGREN'S) ANTIBODY (09/01/2018 10:21 AM CDT) Only the most recent of2 resultswithin the time period is included. Pathologist [facility] SS-A (Ro) Antibody 2.3 0.0 - 19.9 Units 09/03/2018 10:35 AM CDT [facility] Comment: MOHSEN Antibody Numeric Result Interpretation: <20.0 Units: Negative 20.0 - 39.0 Units: Weakly Positive >39.0 Units: Positive Blood BLOOD SPECIMEN / Unknown Lab Venipuncture / Unknown 09/01/2018 10:21 AM CDT 09/01/2018 10:40 AM CDT Damaris Shetty LAB - CHEMISTRY VINELANDGarrison MONTEIRO Performing Organization Address [facility]/ZIP Co de Phone Number [address] [phone] * MPO/NY 3 AUTOANTIBODIES PANEL (09/01/2018 10:21 AM CDT) Only the most recent of2 resultswithin the time period is included. Anti-myeloperox idase (MPO) Antibody <9.0 0.0 - 9.0 U/mL 09/03/2018 1:08 PM CDT [facility] ([facility]) Anti-proteinase 3 (NY-3) Abs <3.5 0.0 - 3.5 U/mL 09/03/2018 1:08 PM CDT [facility] ([facility]) Blood BLOOD SPECIMEN / Unknown Lab Venipuncture / Unknown 09/01/2018 10:21 AM CDT 09/01/2018 10:40 AM CDT Narrative [facility] ([facility]) - 09/03/2018 1:08 PM CDT Performed at: - [address] [id number] Nurse Behavioral Health Care: Negro Sullivan MD, Phone: [phone] Damaris Clearyancelmo [facility] LAB - CHEMISTRY DELLGarrison THANIA [facility] ([facility]) [address] [place] [address] * TSH (09/01/2018 10:21 AM CDT) Only the most recent of3 resultswithin the time period is included. TSH 1.625 0.350 - 4.940 uIU/mL 09/01/2018 12:32 PM CDT [facility] Blood BLOOD SPECIMEN / Unknown Lab Venipuncture / Unknown 09/01/2018 10:21 AM CDT 09/01/2018 10:39 AM CDT Damaris Clearyancelmo [facility] LAB - CHEMISTRY DELLGarrison GRANDEELEN Performing Organization Address [facility]/ZIP Co de Phone Number [address] [phone] * T4 FREE (09/01/2018 10:21 AM CDT) T4 Free 0.9 0.7 - 1.5 ng/dL 09/01/2018 12:32 PM CDT [facility] Blood BLOOD SPECIMEN / Unknown Lab Venipuncture / Unknown 09/01/2018 10:21 AM CDT 09/01/2018 10:39 AM CDT Damaris Clearyancelmo BARCE[facility]S LAB - CHEMISTRY PRE[place] THANIA Performing Organization Address City/[facility]/ZIP Co de Phone Number [address] [phone] * OPH OCT TEST SLU (06/08/2018 12:00 [...] AM CDT 06/07/2018 Narrative Resulting Agency Comment [facility] [address] [facility] [id number] Tessie Pritchard BENEFITS ANALYST-GUM PULLER LAB - URINE C HEMISTRY ORDERABLES [facility] INSURANCE BILL [address] [place] [address] * (ABNORMAL) VITAMIN D 25-HYDROXY (06/07/2018 11:49 AM CDT) Only the most recent of2 resultswithin the time period is included. Vitamin D, 25 Hydroxy 8.9(L) 30.0 - 100.0 ng/mL [facility] INSURANCE BILL Comment: Vitamin D deficiency has been defined by the [place] of Medicine and an Endocrine Society practice guideline as a level of serum 25-OH vitamin D less than 20 ng/mL (1,2). The Endocrine Society went on to further define vitamin D insufficiency as a level between 21 and 29 ng/mL (2). 1. IOM ([place] of Medicine). 2010. Dietary reference intakes for calcium and D. [place]: The National Academies Press. 2. Heavenly MF, Carlton SANDOVAL, Clive BAUMANN, et al. Evaluation, treatment, and prevention of vitamin D deficiency: an Endocrine Society clinical practice guideline. JCEM. 2010; 96(3):1911-30. 06/07/2018 11:4 9 AM CDT 06/07/2018 Narrative Resulting Agency Comment [facility] [address] [facility] [id number] Tessie Dolan Macho BENEFITS ANALYST-GUM PULLER LAB - SMUDGER RY ORDERABLES [facility] INSURANCE BILL [address] [place] [address] * (ABNORMAL) BASIC METABOLIC PANEL (CALCIUM TOTAL) [...] CDT 06/07/2018 Narrative Resulting Agency Comment [facility] [address] [facility] [id number] Tessieyola Pritchard BENEFITS ANALYST-GUM PULLER LAB - SMUDGER RY ORDERABLES Performing Organization Address City/[facility]/ZIP Co de Phone Number [facility] INSURANCE BILL [address] [place] [address] * DNA ANTIBODY DOUBLE STRANDED (05/28/2018 12:26 PM CDT) dsDNA Antibody 22 0 - 29 IU/mL 06/01/2018 12:57 PM CDT [facility] Comment: dsDNA Antibody Numeric Result Interpretation: 0 - 29 IU/mL: Negative 30 - 75 IU/mL: Borderline >75 IU/mL: Positive Blood BLOOD SPECIMEN / Unknown Lab Venipuncture / Unknown 05/28/2018 12:26 PM CDT 05/28/2018 12:35 PM CDT Es Thornton MD LAB - HEMATOLOGY ORD ERABLES [address] [phone] * (ABNORMAL) GLUCOSE - POINT OF CARE (05/28/2018 12:21 PM CDT) Only the most recent of24 resultswithin the time period is included. [facility] Glucose WB/POC 294(H) 70 - 115 mg/dL 05/28/2018 12:24 PM CDT [facility] Specimen Type Arterial/C apillary 05/28/2018 12:24 PM CDT [facility] Blood BLOOD SPECIMEN / Unknown 05/28/2018 12:21 PM CDT 05/28/2018 12:24 PM CDT Narrative [facility] - 05/28/2018 12:24 PM CDT MALLET CUTTER: ELISSA CAMARA Dion Arreola MD LAB - POINT OF CARE ORDERABLES [address] [phone] * CRYOGLOBULIN QUANTITATIVE (05/28/2018 12:14 PM CDT) [facility] Cryoglobulin Quantitative None Detected None Detected mg/dL 05/31/2018 11:10 AM CDT [facility] Blood BLOOD SPECIMEN / Unknown Lab Venipuncture / Unknown 05/28/2018 12:14 PM CDT 05/28/2018 12:31 PM CDT Es Thornton MD LAB - CHEMISTRY [place]TE[place] Performing Organization Address [facility]/ZIP Co de Phone Number [address] [phone] * HEPATITIS C AB SCREEN RFLX NAAT QUANT (05/28/2018 12:13 PM CDT) Pathologist [facility] Hepatitis C Antibody Non-react javier Non-reac tive 05/28/2018 1:18 PM CDT [facility] Comment: Hepatitis C Antibody screen indicates [...] - CHEMISTRY [place] Performing Organization Address [facility] Co de Phone Number [address] [phone] * NEUTROPHIL CYTOPLASMIC ANTIBODY IGG (05/28/2018 12:13 PM CDT) Only the most recent of2 resultswithin the time period is included. [facility] ANCA IgG <1:20 <1:20 05/30/2018 3:16 PM CDT [facility] ([facility]) Comment: The ANCA IFA is <1:20; therefore, [...] collagen vascular disease or arthritis. Performed by [facility], [address] [place] [id number] [email or web address], Sahil Chin MD, Lab. Director Blood BLOOD SPECIMEN / Unknown Lab Venipuncture / Unknown 05/28/2018 12:13 PM CDT 05/28/2018 12:36 PM CDT Es Thornton MD LAB - SEROLOGY ORDER NAZ [facility] [employer] ([facility]) [address] * COMPLEMENT TOTAL (05/28/2018 12:13 PM CDT) Complement Total CH50 >60 >41 U/mL 05/31/2018 2:10 PM CDT [facility] ([facility]) Blood BLOOD SPECIMEN / Unknown Lab Venipuncture / Unknown 05/28/2018 12:13 PM CDT 05/28/2018 12:35 PM CDT Narrative [facility] ([facility]) - 05/31/2018 2:10 PM CDT Performed at: [facility] [address] [id number] Nurse Behavioral Health Care: Neil Maloney PhD, Phone: [phone] Es Thornton MD LAB - CHEMISTRY [place]TE[place] Performing Organization Address City/[facility]/ZIP Co de Phone Number [facility] ([facility]) [address] [place] [address] * SCLERODERMA 70 (SCL) ANTIBODY (05/28/2018 12:13 PM CDT) SCL-70 Antibody 4.3 0.0 - 19.9 Units 06/01/2018 12:57 PM CDT [facility] Comment: MOHSEN Antibody Numeric Result Interpretation: <20.0 Units: Negative 20.0 - 39.0 Units: Weakly Positive >39.0 Units: Positive Blood BLOOD SPECIMEN / Unknown Lab Venipuncture / Unknown 05/28/2018 12:13 PM CDT 05/28/2018 12:35 PM CDT Es Thornton MD LAB - CHEMISTRY [place] [facility] [address] [phone] * HEPATITIS B SURFACE ANTIGEN W RFLX CONFIRMATION (05/28/2018 12:13 PM CDT) Hepatitis B Virus Surface Antigen Non-reacti ve Non-reacti ve 05/28/2018 1:17 PM CDT [facility] Blood BLOOD SPECIMEN / Unknown Lab Venipuncture / Unknown 05/28/2018 12:13 PM CDT 05/28/2018 12:35 PM CDT Es Thornton MD LAB - CHEMISTRY [place] Performing Organization Address City/[facility]/[place] [address], [facility] [phone] * PTH INTACT W/O CALCIUM (05/28/2018 12:12 PM CDT) Pathologist [facility] PTH Intact 49.1 15.0 - 65.0 pg/mL 05/28/2018 2:16 PM CDT [facility] Blood BLOOD SPECIMEN / Unknown Lab Venipuncture / Unknown 05/28/2018 12:12 PM CDT 05/28/2018 12:37 PM CDT Es Thornton MD LAB - CHEMISTRY [place] Performing Organization Address City/[facility]/[place] [address], [facility] [phone] * ANGIOTENSIN CONVERTING ENZYME BLOOD (05/28/2018 12:12 PM CDT) Pathologist [facility] Angiotensin-Con verting Enzyme 60 14 - 82 U/L 05/31/2018 2:10 PM CDT [facility] ([facility]) Blood BLOOD SPECIMEN / Unknown Lab Venipuncture / Unknown 05/28/2018 12:12 PM CDT 05/28/2018 12:36 PM CDT Narrative [facility] ([facility]) - 05/31/2018 2:10 PM CDT Performed at: - [address] [id number] Nurse Behavioral Health Care: Neil Maloney PhD, Phone: [phone] Es Thornton MD LAB - CHEMISTRY ORDE THANIA [facility] ([facility]) [address] [place] [address], [place] * COMPLEMENT C4 (05/28/2018 12:12 PM CDT) Complement C4 40 15 - 57 mg/dL 05/28/2018 1:03 PM CDT [facility] Blood BLOOD SPECIMEN / Unknown Lab Venipuncture / Unknown 05/28/2018 12:12 PM CDT 05/28/2018 12:36 PM CDT Es Thornton MD LAB - SEROLOGY ORDER NAZ Performing Organization Address City/[facility]/ZIP Co de Phone Number [address] [phone] * COMPLEMENT C3 (05/28/2018 12:12 PM CDT) Complement C3 127 82 - 193 mg/dL 05/28/2018 1:03 PM CDT [facility] Blood BLOOD SPECIMEN / Unknown Lab Venipuncture / Unknown 05/28/2018 12:12 PM CDT 05/28/2018 12:36 PM CDT Es Thornton MD LAB - CHEMISTRY ORDE THANIA Performing Organization Address City/[facility]/ZIP Co de Phone Number [address] [phone] * US RETROPERITONEAL COMPLETE (05/26/2018 3:43 PM [...] Not Established mmol/L 05/26/2018 10:12 AM CDT [facility] Urine URINE SPECIMEN OBTAINED BY CLEAN CATCH PROCEDURE / Unknown Collection / Unknown 05/26/2018 9:44 AM CDT 05/26/2018 9:54 AM CDT Zach Morin MD LAB - URINE CHEMISTR Y ORDERABLES Performing Organization Address [facility] Co de Phone Number [address] [phone] * UREA NITROGEN URINE RANDOM (05/26/2018 9:44 AM CDT) Urea Nitrogen Random Urine 712 Not Established mg/dL 05/26/2018 10:54 AM CDT [facility] Urine URINE SPECIMEN OBTAINED BY CLEAN CATCH PROCEDURE / Unknown Collection / Unknown 05/26/2018 9:44 AM CDT 05/26/2018 10:42 AM CDT Ashish Mckee MD LAB - URINE CHEMISTR Y ORDERABLES Performing Organization Address [facility] de Phone Number [address] [phone] * CREATININE URINE RANDOM (05/26/2018 9:44 AM CDT) Creatinine Urine 85 Not Established mg/dL 05/26/2018 10:14 AM CDT [facility] Comment: Result obtained by dilution. Urine URINE SPECIMEN OBTAINED BY CLEAN CATCH PROCEDURE / Unknown Collection / Unknown 05/26/2018 9:44 AM CDT 05/26/2018 9:54 AM CDT Zach Morin MD LAB - URINE CHEMISTR Y ORDERABLES Performing Organization Address [facility] Co de Phone Number [address] [phone] * MAGNESIUM BLOOD (05/25/2018 9:29 PM CDT) Only the most recent of2 resultswithin the time period is included. Magnesium 1.8 1.6 - 2.6 mg/dL 05/25/2018 9:57 PM CDT [facility] Blood BLOOD SPECIMEN / Unknown Venipuncture / Unknown 05/25/2018 9:29 PM CDT 05/25/2018 9:35 PM CDT Albert Morejon MD LAB - CHEMISTRY PRESTON MONTEIRO [facility] [address] [place] [address] * FLOW CYTOMETRY BODY FLUID (05/25/2018 3:00 PM CDT) Case Report Flow Cytometry Case: [id number] Authorizing Provider: Zach Morin MD Collected: 05/25/2018 03:00 PM Ordering Location: [address] Received: 05/25/2018 04:01 PM Pathologist: Chaz Arango MD Specimen: CSF 9 4:18 PM CDT [facility] Final Diagnosis Cerebrospinal fluid, flow cytometric immunophenotypic analysis: - No evidence of non Hodgkin lymphoma or high-grade myeloid neoplasm. - See interpretation. 9 4:18 PM CDT [facility] Flow Cytometry Interpretation The cerebrospinal [...] the flow cytometry specimen is reviewed for quality control scientist purposes. Overall, the cerebrospinal fluid specimen shows no evidence of involvement by non Hodgkin lymphoma or a high-grade myeloid neoplasm. Correlation with clinical findings is required. GATE SHEAR OPERATOR/NW 9 4:18 PM CDT [facility] Flow Cytometry Results Differential Result Comment Flow Cell Count /uL 440 Total Viability % 100 Lymphocytes % 91 Dim CD45 Region % 1 Monocytes % 3 Granulocytes % 4 9 4:18 PM CDT [facility] Client Specimen ID # [id number] 9 4:[address] [facility] Reason for test Blurry vision 368.8 9 4:18 PM T [facility] Number of markers 20 were performed. A Flow CD3 A Flow CD10 A Flow CD20 A Flow CD23 A Flow CD117 A FLOW CD138 A Flow CD2 A Flow CD4 A Flow CD1a A Flow CD5 A Flow CD19 A Flow CD34 A Flow CD45 A Flow CD38 A Flow CD56 A Flow CD7 A Flow CD8 A Flow CD30 A Ellerslie+CD19+ A Lambda+CD19+ 9 4:18 PM T [facility] Disclaimer Test performed at [facility], [address] [place] [address], [id number]. *The established laboratory minimum viability is 70%. [...] high complexity clinical testing. 9 4:[address] [facility] Embedded Images 4:18 PM T [facility] Fluid CEREBROSPINAL FLUID SPECIMEN / Unknown Collection / Unknown 05/25/2018 3:00 PM CDT 05/25/2018 4:01 PM CDT Zach Morin MD LAB - PATHOLOGY/CYTO LOGY ORDERABLES [facility] [address] [place] [address]. [place] [address], [facility] [phone] * PATHOLOGY SMEAR BODY FLUID (05/25/2018 11:30 AM CDT) Pathology Diff Review DIFFERENTIAL REVIEW - CONFIRMED DIFFERENTIAL REVIEW - CONFIRMED 05/25/2018 2:49 PM T [facility] Comment: Clinical history: Ms. Smith is a 38 emuf-erx-pjbmy with a history of obesity, DM, and [...] MD LAB - PATHOLOGY/CYTO LOGY ORDERABLES [address] [phone] * NEUROMYELITIS OPTICA APQ4 IGG CSF W/RFLX (05/25/2018 11:30 AM CDT) Neuromyelitis Optica/AQP4 IgG CSF < 1:1 05/28/2018 5:16 PM CDT [facility] ([facility]) Comment: Aquaporin-4 Receptor Antibody, IgG is not [...] diagnostic for NMO. See Compliance Statement B: [email or web address] Performed by [facility], [address] [place] [id number] [email or web address], Sahil Chin MD, Lab. Director Cerebral spinal fluid CEREBROSPINAL FLUID SPECIMEN / Unknown Collection / Unknown 05/25/2018 11:30 AM CDT 05/25/2018 11:52 AM CDT Zach Morin MD LAB - BODY FLUID ORD ERABLES [address] * DIFFERENTIAL MANUAL FLUID (05/25/2018 11:30 AM CDT) Segs % Fluid 7 % 05/25/2018 1:01 PM CDT [facility] Lymphocytes % Fluid 68 % 05/25/2018 1:01 PM CDT [facility] Monocytes % Fluid 4 % 05/25/2018 1:01 PM CDT [facility] Atypical Lymphs % Fluid 21 % 05/25/2018 1:01 PM CDT [facility] Cerebral spinal fluid CEREBROSPINAL FLUID SPECIMEN / Unknown Collection / Unknown 05/25/2018 11:30 AM CDT 05/25/2018 11:49 AM CDT Zach Morin MD LAB - BODY FLUID ORD ERABLES Performing Organization Address [facility]/ZIP Co de Phone Number [address] [phone] * GRAM STAIN (LAB ORDERED) (05/25/2018 11:30 AM CDT) Gram Stain Moderate White blood cells 05/25/2018 8:02 PM CDT [facility] Gram Stain No organisms seen 05/25/2018 8:02 PM CDT [facility] Microbiology Collection / Unknown 05/25/2018 11:30 AM CDT 05/25/2018 11:52 AM CDT Zach Morin MD LAB - MICROBIOLOGY O RDERABLES Performing Organization Address City/[facility]/ZIP Co de Phone Number [address] [phone] * CULTURE CSF+GRAM STAIN (05/25/2018 11:30 AM CDT) Culture No growth ESTEVAN 06/01/2018 3:34 AM CDT [facility] Gram Stain Rare Polymorphonuclear cells 06/01/2018 3:34 AM CDT [facility] Gram Stain No organisms seen 019 3:34 AM CDT [facility] Cerebral spinal fluid CEREBROSPINAL FLUID SPECIMEN / Unknown Collection / Unknown 05/25/2018 11:30 AM CDT 05/25/2018 11:52 AM CDT Zach Morin MD LAB - MICROBIOLOGY O RDERABLES Performing Organization Address City/[facility]/ZIP Co de Phone Number [facility] [address] [place] [address], [facility] [phone] * HERPES SIMPLEX 1+2 PCR CSF (05/25/2018 11:30 AM CDT) Herpes Simplex Virus 1 PCR CSF Not detected Not detected 05/25/2018 9:44 PM CDT [facility] Herpes Simplex Virus 2 PCR CSF Not detected Not detected 05/25/2018 9:44 PM CDT [facility] Microbiology CEREBROSPINAL FLUID SPECIMEN / Unknown Collection / Unknown 05/25/2018 11:30 AM CDT 05/25/2018 11:52 AM CDT Zach Morin MD LAB - MICROBIOLOGY O NARDA Performing Organization Address City/[facility] Co de Phone Number [facility] [address] [place] [address], [facility] [phone] * ANGIOTENSIN CONVERTING ENZYME CSF (05/25/2018 11:30 AM CDT) Angiotensin-Convert ing Enzyme CSF 0.9 0.0 - 2.5 U/L 05/28/2018 8:50 PM CDT [facility] ([facility]) Comment: This test was developed and its performance characteristics determined by [facility]. The U.S. Food and Drug Administration has not approved or cleared this test; however, FDA clearance or approval is not currently required for clinical use. The results are not intended to be used as the sole means for clinical diagnosis or patient management decisions. Performed by [facility], [address] [place] [address],[place] [address] [email or web address], Sahil Chin MD, Lab. Director Cerebral spinal fluid CEREBROSPINAL FLUID SPECIMEN / Unknown Collection / Unknown 05/25/2018 11:30 AM CDT 05/25/2018 11:52 AM CDT Zach Morin MD LAB - BODY FLUID ORD ERABLES Performing Organization Address [facility] Co de Phone Number [facility]) [address] [place] [address] * MYELIN BASIC PROTEIN CSF (05/25/2018 11:30 AM CDT) Myelin Basic Protein 1.62 0.00 - 5.50 ng/mL 05/28/2018 7:09 PM CDT [facility] ([facility]) Comment: INTERPRETIVE INFORMATION: Myelin Basic Protein Test developed and characteristics determined by [facility]. See Compliance Statement D: [email or web address] Performed by [facility], [address] [place] [address] [email or web address], Sahil Chin MD, Lab. Director Cerebral spinal fluid CEREBROSPINAL FLUID SPECIMEN / Unknown Collection / Unknown 05/25/2018 11:30 AM CDT 05/25/2018 11:52 AM CDT Zach Morin MD LAB - BODY FLUID ORD ERABLES Performing Organization Address [facility] Co de Phone Number [facility]) [address] [place] [address] * CELL COUNT W DIFFERENTIAL CSF (05/25/2018 11:30 AM CDT) Color Fluid Colorless Colorless, Straw 05/25/2018 12:51 PM CDT [facility] Clarity Fluid Clear Clear 05/25/2018 12:51 PM CDT [facility] Volume Fluid 4.0 mL 05/25/2018 12:51 PM CDT [facility] WBC Calculation Fluid 498 /uL 05/25/2018 12:51 PM CDT [facility] RBC Calculation 0 /uL 9 12:51 PM CDT [facility] Xanthochromia Fluid Negative Negative 05/25/2018 12:51 PM CDT [facility] Differential Manual Differential to follow. 05/25/2018 12:51 PM CDT [facility] Cerebral spinal fluid CEREBROSPINAL FLUID SPECIMEN / Unknown Collection / Unknown 05/25/2018 11:30 AM CDT 05/25/2018 11:49 AM CDT Zach Morin MD LAB - BODY FLUID ORD ERABLES Performing Organization Address [facility] Co de Phone Number [address] [phone] * PROTEIN CSF (05/25/2018 11:30 AM CDT) Protein CSF 20 15 - 45 mg/dL 05/25/2018 12:14 PM CDT [facility] Cerebral spinal fluid CEREBROSPINAL FLUID SPECIMEN / Unknown Collection / Unknown 05/25/2018 11:30 AM CDT 05/25/2018 11:51 AM CDT Zach Morin MD LAB - BODY FLUID ORD ERABLES Performing Organization Address [facility] Co de Phone Number [address] [phone] * (ABNORMAL) GLUCOSE CSF (05/25/2018 11:30 AM CDT) Glucose CSF 147(H) 40 - 70 mg/dL 05/25/2018 12:10 PM CDT [facility] Cerebral spinal fluid CEREBROSPINAL FLUID SPECIMEN / Unknown Collection / Unknown 05/25/2018 11:30 AM CDT 05/25/2018 11:54 AM CDT Zach Morin MD LAB - BODY FLUID ORD ERABLES Performing Organization Address [facility] Co de Phone Number [address] [phone] * SYPHILIS ANTIBODY CASCADING REFLEX (05/25/2018 4:03 AM CDT) Treponema pallidum Antibody Non-react javier Non-react javier 05/25/2018 5:33 AM CDT [facility] Comment: No Laboratory evidence of syphilis infection. Note: Circulating antibodies may be low or undetectable in early infection. If recent exposure is suspected, re-draw sample in 2-4 weeks and repeat testing. Blood BLOOD SPECIMEN / Unknown Lab Venipuncture / Unknown 05/25/2018 4:03 AM CDT 05/25/2018 4:43 AM CDT Namita Raymond MD LAB - SEROLOGY ORDER NAZ [facility] [address] [phone] * NEUROMYELITIS OPTICA ANTIBODY (05/25/2018 4:03 AM CDT) NMO Antibody IgG <1.5 0.0 - 3.0 U/mL 05/28/2018 5:08 PM CDT [facility] ([facility]) Comment: Negative: 0.0 - 3.0 Positive: >3.0 Blood BLOOD SPECIMEN / Unknown Lab Venipuncture / Unknown 05/25/2018 4:03 AM CDT 05/25/2018 4:43 AM CDT Narrative [facility] ([facility]) - 05/28/2018 5:08 PM CDT Performed at: [address] [place] [address] [id number] Nurse Behavioral Health Care: Negro Sullivan MD, Phone: [phone] Namita Raymond MD LAB - SEROLOGY ORDER NAZ Performing Organization Address City/[facility] Co de Phone Number [facility] ([facility]) [address] [place] [address], [place] * HCG BETA BLOOD QUANTITATIVE (05/25/2018 4:03 AM CDT) Beta-hCG Total Quantitative <2 <5 mIU/mL 05/25/2018 5:18 AM CDT [facility] Comment: HCG Numeric Result Interpretation: Non- Females: < 5 mIU/mL Post-Menopausal Females: < 7 mIU/mL Blood BLOOD SPECIMEN / Unknown Lab Venipuncture / Unknown 05/25/2018 4:03 AM CDT 05/25/2018 4:43 AM CDT Monroe Wood MD LAB - CHEMISTRY DELLGarrison GRANDEELEN [facility] Organization Address City/State/ZIP Co de Phone Number [address] [phone] * MRI ORBITS OR FACE WWO CONTRAST [...] ve Non-react javier 05/24/2018 5:54 PM CDT [facility] Comment: Neither HIV-1 p24 Antigen nor HIV-1/HIV-2 Antibodies are detected. Blood BLOOD SPECIMEN / Unknown Venipuncture / Unknown 05/24/2018 5:08 PM CDT 05/24/2018 5:16 PM CDT Namita Raymond MD LAB - HEMATOLOGY ORD ERABLES [facility] [address] [place] [address] * Visual Almazan (05/24/2018 2:58 PM CDT) [...] Albumin Random Urine >1,540.0 Not Established mcg/mL [facility] Urine specimen (specimen) 10/30/2015 12:30 PM CDT 10/30/2015 12:48 PM CDT Tessie Pritchard APRN-GUM PULLER LAB - URINE C HEMISTRY ORDERABLES [address] [phone] * LIPID PROFILE (10/30/2015 12:18 PM CDT) Only the most recent of2 resultswithin the time period is included. Cholesterol Total 152 <200 mg/dL [facility] HDL 56 >40 mg/dL [facility] Comment: ATP III Classification of HDL Cholesterol: <40 mg/dL: Considered a major risk factor. >60 mg/dL: Considered a negative risk factor. LDL Calculated 76 <100 mg/dL [facility] Comment: ATP III Classification of LDL Cholesterol: <100 mg/dL: Optimal 100 - 129 mg/dL: Near Optimal/Above Optimal 130 - 159 mg/dL: Borderline High 160 - 189 mg/dL: High >190 mg/dL: Very High Triglycerides 98 <150 mg/dL [facility] Comment: ATP III Classification of Triglycerides: <150 mg/dL: Normal 150 - 199 mg/dL: Borderline High 200 - 400 mg/dL: High >500 mg/dL: Very High Blood specimen (specimen) BLOOD SPECIMEN / Unknown 10/30/2015 12:18 PM CDT 10/30/2015 12:48 PM CDT Tessie Dolan Macho MUNOZ-GUM PULLER LAB - SMUDGER RY ORDERABLES [address] [phone] * GLUCOSE - POINT OF CARE (AMB) [facility] (04/10/2015 9:21 AM MANAGER CITY) Only the most recent of2 resultswithin the time period is included. Glucose POCT 214 mg/dL [facility] Capillary blood specimen (specimen) 04/10/2015 9:21 AM MANAGER CITY Tessie Pritchard APRN-GUM PULLER LAB - POINT O F CARE ORDERABLES Performing Organization Address [facility]/ZIP Co de Phone Number [facility] * INSULIN ANTIBODY (09/12/2014 3:01 PM CDT) Insulin Antibody <5.0 uU/mL [facility] Comment: This test is also known as insulin autoantibody or IAA. Reference Range: <5.0 Negative > or = 5.0 Positive Blood specimen (specimen) BLOOD SPECIMEN / Unknown 09/12/2014 3:01 PM CDT 09/12/2014 3:35 PM CDT Narrative [facility] ([place]) - 09/21/2014 6:15 AM CDT Performed at: - [facility] [address] [place] [address] [id number] Nurse Behavioral Health Care: Demarco Henderson MD, Phone: [phone] Tessie Pritchard APRN-GUM PULLER LAB - SMUDGER RY ORDERABLES [facility] ([place]) * GLUTAMIC ACID DECARBOXYLASE ([place]) ANTIBODY (09/12/2014 3:01 PM CDT) [place]-65 <1.0 0.0 - 1.5 U/mL [facility] ([facility]) Blood specimen (specimen) BLOOD SPECIMEN / Unknown 09/12/2014 3:01 PM CDT 09/12/2014 3:35 PM CDT Narrative [facility] ([facility]) - 09/15/2014 5:15 PM CDT Performed at: [address] [place] [address] [id number] Nurse Behavioral Health Care: Sekou Dent MD, Phone: [phone] Tessie Pritchard BENEFITS ANALYST-GUM PULLER LAB - SEROLOG Y ORDERABLES Performing Organization Address City/[facility]/ZIP Co de Phone Number [facility]) * TISSUE TRANSGLUTAMINASE AB IGG (06/29/2014 4:51 PM CDT) [facility] TTG Antibody IgG 2 0 - 5 U/mL [facility]) Comment: Negative 0 - 5 Weak Positive 6 - 9 Positive >9 Blood specimen (specimen) BLOOD SPECIMEN / Unknown 06/29/2014 4:51 PM CDT 06/29/2014 5:26 PM CDT Narrative [facility]) - 07/01/2014 3:12 PM CDT Performed at: [address] [place] [address] [id number] Nurse Behavioral Health Care: Clemente Wiley PhD, Phone: [phone] Finn Clemens MD LAB - CHEMISTRY [facility] ([facility]) * C-PEPTIDE (06/29/2014 4:51 PM CDT) [facility] C-Peptide 1.1 1.1 - 4.4 ng/mL [facility]) Comment:C-Peptide reference interval is for fasting patients. Blood specimen (specimen) BLOOD SPECIMEN / Unknown 06/29/2014 4:51 PM CDT 06/29/2014 5:26 PM CDT Narrative [facility] ([place]) - 07/02/2014 6:41 AM CDT Performed at: [address] [id number] Nurse Behavioral Health Care: Clemente Wiley PhD, Phone: [phone] Finn Clemens MD LAB - CHEMISTRY [facility] Performing Organization Address City/[facility]/ZIP Co de Phone Number [facility]) * (ABNORMAL) HEMOGLOBIN A1C (06/29/2014 4:51 PM CDT) Hemoglobin A1c 11.1(H) 4.4 - 6.3 % [facility] Estimated Average Glucose 272 mg/dL [facility] Comment: HbA1c Interpretation: Treatment target values [...] MD LAB - CHEMISTRY [facility] [address] [phone] * VITAMIN B12 (06/29/2014 4:51 PM CDT) Vitamin B12 520 213 - 816 pg/mL [facility] Blood specimen (specimen) BLOOD SPECIMEN / Unknown 06/29/2014 4:51 PM CDT 06/29/2014 5:26 PM CDT Finn Clemens MD LAB - CHEMISTRY [facility] [address] [place] [address], [facility] [phone] Care Teams Asbestos Cement Sheet Supervisor Relationship Specialty Start Date End Date Jessie Dickson, BENEFITS ANALYST-GUM PULLER [address], [place] [address] PCP - General 06/30/14
--- OUTSIDE RECORDS SUMMARY | 2024-04-04 12:30 | XMS_ITS | Referral Summary ---
Author Organization [facility] Address [address] [facility] [place] [address] Care Team Providers Care Svp Of Digital Name Role Phone Jessie Dickson ENGINEERING AND SCIENTIFIC PROGRAMMER-HAND SAMPLE MAKER Primary Care Pro vider Source Comments [facility],non-owned Affiliates and Associated Physician Practices is amultiple site organization consisting of ambulatory clinics and hospital sitesin [place], [place], [place] and [place]. This disclosure is being madepursuant to the Care Everywhere program and may not contain all information available regarding this patient. Last updated 17.[facility] Allergies Active Allergy Reactions Criticality Noted Date [...] 200 Each 11 06/09/2018 Active ergocalciferol (DRISDOL) 37607 units capsule Take 1 capsule by mouth [...] procedure) 2 tablet 01/21/2022 Active HYDROcodone-acetamino phen ([place]) 5-325 MG tablet Take 1 (one) tablet [...] Comments Blood Pressure 145/85 02/05/2022 12:[address] irizarry aware; ok to d/cv Pulse 74 02/05/2022 11:55 AM GAS PLUMBING INSPECTOR Temperature 36.8 C (98.2 F) 09/13/2019 8:22 AM CDT Respiratory Rate 12 02/05/2022 11:5 0 AM GAS PLUMBING INSPECTOR Oxygen Saturation 100% 02/05/2022 11: 55 AM GAS PLUMBING INSPECTOR Inhaled Oxygen Concentration - - Weight 108.9 [...] javier Non-reac tive 05/28/2018 1:18 PM CDT [facility] Comment: Hepatitis C Antibody screen [...] - CHEMISTRY [facility] [address] [phone] * HIV-1 HIV-2 ANTIGEN/ANTIBODY (05/24/2018 5:08 PM CDT) HIV Antigen/Antibod y 1 & 2 Non-reacti ve Non-react javier 05/24/2018 5:54 PM CDT [facility] Comment: Neither HIV-1 p24 Antigen nor HIV-1/HIV-2 Antibodies are detected. Blood BLOOD SPECIMEN / Unknown Venipuncture / Unknown 05/24/2018 5:08 PM CDT 05/24/2018 5:16 PM CDT Namita Raymond MD LAB - HEMATOLOGY ORD ERABLES [facility] [address] [phone] from Last 3 Months or Most Recently Relevant to Health Maintenance Advance Directives * Full Code (Latest Code Status on File) Date Activated Date Inactivated Comments 05/25/2018 12:57 AM 05/28/2018 5:22 PM * Full Code Date Activated Date Inactivated Comments 05/24/2018 6:24 PM 05/25/2018 12:57 AM Care Teams Svp Of Digital Relationship Specialty Start Date End Date Jessie Dickson APRN-JANET [address] [address] PCP - General 06/30/14
--- OUTSIDE RECORDS SUMMARY | 2024-04-04 12:31 | XMS_ITS | Clinical Summary ---
Author Organization [facility] Address [address] [facility] [place] [address] Care Team Providers Care Inspector Machine Parts Name Role Phone Jessie Dickson FRONT DESK WORKER-ENTRY LEVEL TRUCK DRIVER Primary Care Pro vider Source Comments [facility],non-owned Affiliates and Associated Physician Practices is amultiple site organization consisting of ambulatory clinics and hospital sitesin [place], [place], [place] and [place]. This disclosure is being madepursuant to the Care Everywhere program and may not contain all information available regarding this patient. Last updated 17.[facility] Allergies Active Allergy Reactions Criticality Noted Date [...] 200 Each 11 06/09/2018 Active ergocalciferol (DRISDOL) 70117 units capsule Take 1 capsule by mouth [...] procedure) 2 tablet 01/21/2022 Active HYDROcodone-acetamino phen ([place]) 5-325 MG tablet Take 1 (one) tablet [...] Comments Blood Pressure 145/85 02/05/2022 12:[address] irizarry aware; ok to d/cv Pulse 74 02/05/2022 11:55 AM HVAC SPECIALIST Temperature 36.8 C (98.2 F) 09/13/2019 8:22 AM CDT Respiratory Rate 12 02/05/2022 11:5 0 AM HVAC SPECIALIST Oxygen Saturation 100% 02/05/2022 11: 55 AM HVAC SPECIALIST Inhaled Oxygen Concentration - - Weight 108.9 [...] CARE (AMB) [facility] (11/01/2018 10:11 AM CDT) [facility] Hemoglobin A1c POCT 8.5% BLOOD SPECIMEN / Unknown 11/01/2018 10:11 AM CDT Tessie Magdaleno Carlitosliv FRONT DESK WORKER-ENTRY LEVEL TRUCK DRIVER LAB - POINT O F CARE ORDERABLES * HEPATITIS C AB SCREEN RFLX NAAT QUANT (05/28/2018 12:13 PM CDT) [facility] Hepatitis C Antibody Non-react javier Non-reac tive 05/28/2018 1:18 PM CDT [facility] Comment: Hepatitis C Antibody [...] Thornton MD LAB - CHEMISTRY [facility] [address] [phone] * HIV-1 HIV-2 ANTIGEN/ANTIBODY (05/24/2018 5:08 PM CDT) [facility] HIV Antigen/Antibod y 1 & 2 Non-reacti ve Non-react javier 05/24/2018 5:54 PM CDT [facility] Comment: Neither HIV-1 p24 Antigen nor HIV-1/HIV-2 Antibodies are detected. Blood BLOOD SPECIMEN / Unknown Venipuncture / Unknown 05/24/2018 5:08 PM CDT 05/24/2018 5:16 PM CDT Namita Raymond MD LAB - HEMATOLOGY [facility] [address] [phone] from Last 3 Months or Most Recently Relevant to Health Maintenance Advance Directives * Full Code (Latest Code Status on File) Date Activated Date Inactivated Comments 05/25/2018 12:57 AM 05/28/2018 5:22 PM * Full Code Date Activated Date Inactivated Comments 05/24/2018 6:24 PM 05/25/2018 12:57 AM Care Teams Inspector Machine Parts Relationship Specialty Start Date End Date Jessie Dickson APRN-ENTRY LEVEL TRUCK DRIVER [address] [place] [phone] PCP - General 06/30/14
--- OUTSIDE RECORDS SUMMARY | 2024-04-04 12:31 | XMS_ITS | Encounter Summary ---
Author Organization [facility] Address [address] [place] [address] Care Team Providers Care Home Care Rn Name Role Phone Jessie Dickson WEB PRODUCTION DESIGNER-PHOTO CARTOGRAPHER Primary Care Pro vider Encounter Details Date Type Department Care Team (Late st Contact Info) Description 05/25/2018 Ophth Exam [facility] [place] [address] Regina Fritz MD [facility] [place] [address] Social History Tobacco Use Types Packs/Day Years [...] on filedocumented in this encounter Care Teams Home Care Rn Relationship Specialty Start Date End Date Jessie Dickson, TAMMY-PHOTO CARTOGRAPHER [address] [place] [address] PCP - General 06/30/14 documented as of this encounter
--- OUTSIDE RECORDS SUMMARY | 2024-04-04 12:33 | XMS_ITS ---
Author Organization [facility] Address [address] [place] [address] Care Team Providers Care Miller Apprentice Name Role Phone Almita Rizzo RN Unavailable [phone] Beth Fernandez MD Unavailable [phone] Maday Oviedo MD Unavailable [phone] Tomasz Scott DO Unavailable [phone] No, Physician Primary Care Provider [phone] Transplant Episode Kidney Candidate [facility] ([place], [place]) [facility] Center waitlisted on 09/10/2021 Marked as Active on 04/02/2023 Reason: Listed in [facility] Kidney CoordinatorAlmita Rizzo RN Fax: N/A Email: N/A Scores Score Value Updated Exceptions/Reas ons CPRA Not available EPTS (Calc) 52 04/04/2024 [place] 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 Mellitus - Type II Care Team Name Role Phone Fax Email Almita Rizzo RN Kidney Coordinator [phone] N/A N/A Beth Fernandez MD Referring Physician [phone] N/A Hien Mireles [employer] [phone] N/A N/A Events Pre-Transplant Referred: 02/07/2021 Evaluation began: 04/04/2021 Committee: 09/09/2021 [facility] qualified: 01/21/2021 Center waitlisted: 09/10/2021 Dialysis History Dialysis History Start End Type Comments Center 04/23/2021 Peritoneal [facility] 01/21/2021 04/23/2021 Hemo M/W/F [facility] Information Center Phone Fax Address [facility] [phone] [address] [facility] [phone] [address] [place] [phone]
--- OUTSIDE RECORDS SUMMARY | 2024-04-04 12:33 | XMS_ITS | Referral Summary ---
Author Organization [facility] Maria Isabel at the [facility] Office Center Address [address] [place] [address] Care Team Providers Care Corporate Tax Preparer Name Role Phone Almita Rizzo RN Unavailable [phone] Beth Fernandez MD Unavailable [phone] Maday Oviedo MD Unavailable [phone] Tomasz Scott DO Unavailable [phone] No, Physician Primary Care Provider [phone] Encounters Date Type Department Care Team Description 03/29/2024 10:00 AM PRINTED CIRCUIT BOARD REWORKER - 03/29/2024 11:59 PM [facility] Hospital Encounter [address] [address] Pre-transplant evaluation for kidney transplant; ESRD (end stage renal disease) ([facility]) ([facility]) Discharge Disposition: Discharge to home or self care 03/22/2024 Documentation [facility] Transplant Kidney [id number] Mailstop [id number] [place] [address] Almita Rizzo RN Waitlist Maintenance 02/29/2024 Telephone [facility] Transplant Kidney [address] [facility] [address] Mailstop [phone] [place] [address] Almita Rizzo RN Waitlist Maintenance 02/26/2024 10:00 AM PRINTED CIRCUIT BOARD REWORKER - 02/26/2024 11:59 PM [facility] Hospital Encounter [address] [place] [address] Pre-transplant evaluation for kidney transplant; ESRD (end stage renal disease) (CMS/HCC) ([facility]) Discharge Disposition: Discharge to home or self care 02/26/2024 7:21 AM PRINTED CIRCUIT BOARD REWORKER - 02/26/2024 11:59 PM PRINTED CIRCUIT BOARD REWORKER Hospital Encounter [facility] [address] [place] [address] Pre-kidney transplant, patient on transplant list; ESRD (end stage renal disease) (CMS/HCC) ([facility]) Discharge Disposition: Discharge to home or self care 02/18/2024 Documentation [facility] Transplant Kidney [address] [facility] 3401 Mailstop [phone] [place] [address] Anjali Gastelum Appointment/Schedul es 02/18/2024 Documentation [facility] Transplant Kidney [address] [facility] [address] Mailstop [id number] [place] [address] Almita Rizzo RN Waitlist Maintenance 02/16/2024 11:25 AM PRINTED CIRCUIT BOARD REWORKER Lab [facility] ([facility]) [address] [place] [phone] Pre-kidney transplant, patient on transplant list; ESRD (end stage renal disease) (CMS/HCC) ([facility]) 01/26/2024 10:00 AM PRINTED CIRCUIT BOARD REWORKER - 01/26/2024 11:59 PM PRINTED CIRCUIT BOARD REWORKER Hospital Encounter [address] [address] Pre-transplant evaluation for kidney transplant; ESRD (end stage renal disease) (CMS/HCC) ([facility]) Discharge Disposition: Discharge to home or self care 01/25/2024 Telephone [facility] Transplant Kidney [address] [facility] [address] Mailstop [phone] [place] [address] Kathryn Still 01/08/2024 2:57 AM PRINTED CIRCUIT BOARD REWORKER - 01/08/2024 9:59 AM PRINTED CIRCUIT BOARD REWORKER Emergency [facility] Emergency Department [address] [place] [address] Amauri Greene MD PhD Orr, Brandan Martinez [...] (04/10/2022): Added automatically from request for surgery [id number] Hypertension 2021 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 ([facility]) 03/05/2021 Diabetic retinopathy [...] on file Legal Sex Female 11:50 PM PRINTED CIRCUIT BOARD REWORKER Gender Identity Not on file Sexual Orientation Not on file Last Filed Vital Signs Vital Sign Reading Time Taken Comments Blood Pressure 165/85 02/26/2024 10:12 AM PRINTED CIRCUIT BOARD REWORKER Pulse 100 02/26/2024 10:12 AM PRINTED CIRCUIT BOARD REWORKER Temperature 36.7 C (98.1 F) 01/08/2024 9:45 AM PRINTED CIRCUIT BOARD REWORKER Respiratory Rate 16 01/08/2024 8:30 AM PRINTED CIRCUIT BOARD REWORKER Oxygen Saturation 97% 01/08/2024 9:30 AM PRINTED CIRCUIT BOARD REWORKER Inhaled Oxygen Concentration - - Weight 90.7 kg (200 lb) 02/26/2024 8:40 AM PRINTED CIRCUIT BOARD REWORKER Height 160 cm (5' 3 ) 02/26/2024 8:40 AM PRINTED CIRCUIT BOARD REWORKER Body Mass Index 35.43 02/26/2024 8:40 AM PRINTED CIRCUIT BOARD REWORKER Plan of Treatment Not on file Medical Devices Implanted Type Area Horse Exerciser Device Identifier Shelf Expiration Date Model / Serial / Lot [employer] [id number] [place] 15fr 62cm 2 Cuff Radiopaque Peritoneal Curl Catheter - Sn/A - [id number] Implanted:Qty : 1 on 03/14/2021 by Gildardo Leggett MD at [facility] Catheter N/A: Abdomen [employer] 07/01/2025 [id number] / N/A / [id number] Description:Peritoneal Dialy sis Catheter, Curl Cath, 2 Cuffs Graft Vasc 45cm 4-6mm [employer] Acuseal Eptfe 3 Layer Kink Rst - [id number] - [id number] Implanted:Qty : 1 on 05/08/2022 by Uche Katz MD at [facility] Graft Left: Arm Wl [employer] [id number] 05/21/2024 [id number] / [id number] / 00 Procedures Procedure Name Priority Date/Time Associated Diagnosis Comments HLA ANTIBODY SCREEN - SAB (CLASS I AND CLASS II) Routine 03/29/2024 10:00 AM PRINTED CIRCUIT BOARD REWORKER Pre-transplant evaluation for kidney transplant ESRD (end stage renal disease) ([facility]) ([facility]) HLA ANTIBODY SCREEN BY PRA OR SAB PER SCHEDULE (CLASS I AND CLASS II) Routine 03/29/2024 10:00 AM PRINTED CIRCUIT BOARD REWORKER Pre-transplant evaluation for kidney transplant ESRD (end stage renal disease) ([facility]) ([facility]) STRESS ECHO PHARMACOLOGIC W DOPPLER/CF W CONTRAST Routine 02/26/2024 10:12 AM PRINTED CIRCUIT BOARD REWORKER Pre-kidney transplant, patient on transplant list ESRD (end stage renal disease) (CMS/HCC) (HCC) HLA ANTIBODY SCREEN BY PRA OR SAB PER SCHEDULE (CLASS I AND CLASS II) Routine 02/26/2024 10:00 AM PRINTED CIRCUIT BOARD REWORKER Pre-transplant evaluation for kidney transplant ESRD (end stage renal disease) (CMS/HCC) (HCC) EGFR Routine 02/16/2024 11:34 AM PRINTED CIRCUIT BOARD REWORKER Pre-kidney transplant, patient on transplant list ESRD (end stage renal disease) (CMS/HCC) (HCC) DIFFERENTIAL AUTO Routine 02/16/2024 11: 34 AM PRINTED CIRCUIT BOARD REWORKER Pre-kidney transplant, patient on transplant list ESRD (end stage renal disease) (CMS/HCC) (HCC) CBC WITH AUTO DIFFERENTIAL Routine 02/16/2024 11:34 AM PRINTED CIRCUIT BOARD REWORKER Pre-kidney transplant, patient on transplant list ESRD (end stage renal disease) (CMS/HCC) (HCC) COMPREHENSIVE METABOLIC PANEL Routine 02/16/2024 11:34 AM PRINTED CIRCUIT BOARD REWORKER Pre-kidney transplant, patient on transplant list ESRD (end stage renal disease) (CMS/HCC) (HCC) PHOSPHORUS Routine 02/16/2024 11:34 AM PRINTED CIRCUIT BOARD REWORKER Pre-kidney transplant, patient on transplant list ESRD (end stage renal disease) (CMS/HCC) (HCC) PTH Routine 02/16/2024 11:34 AM PRINTED CIRCUIT BOARD REWORKER Pre-kidney transplant, patient on transplant list ESRD (end stage renal disease) (CMS/HCC) (HCC) HEMOGLOBIN A1C Routine 02/16/2024 11:34 AM PRINTED CIRCUIT BOARD REWORKER Pre-kidney transplant, patient on transplant list ESRD (end stage renal disease) (CMS/HCC) (HCC) HIV 1/2 ANTIBODY PLUS P24 ANTIGEN Routine 02/16/2024 11:34 AM PRINTED CIRCUIT BOARD REWORKER Pre-kidney transplant, patient on transplant list ESRD (end stage renal disease) (CMS/HCC) (HCC) HEPATITIS B SURFACE ANTIBODY (IMMUNE STATUS) Routine 02/16/2024 11:34 AM PRINTED CIRCUIT BOARD REWORKER Pre-kidney transplant, patient on transplant list ESRD (end stage renal disease) (CMS/HCC) (HCC) HEPATITIS B SURFACE ANTIGEN Routine 02/16/2024 11:34 AM PRINTED CIRCUIT BOARD REWORKER Pre-kidney transplant, patient on transplant list ESRD (end stage renal disease) (CMS/HCC) (HCC) HEPATITIS C ANTIBODY Routine 02/16/2024 11:34 AM PRINTED CIRCUIT BOARD REWORKER Pre-kidney transplant, patient on transplant list ESRD (end stage renal disease) (CMS/HCC) (HCC) HEPATITIS B CORE ANTIBODY, TOTAL Routine 02/16/2024 11:34 AM PRINTED CIRCUIT BOARD REWORKER Pre-kidney transplant, patient on transplant list ESRD (end stage renal disease) (CMS/HCC) (HCC) HLA ANTIBODY SCREEN - SAB (CLASS I AND CLASS II) Routine 01/26/2024 10:00 AM PRINTED CIRCUIT BOARD REWORKER Pre-transplant evaluation for kidney transplant ESRD (end stage renal disease) (CMS/HCC) (HCC) HLA ANTIBODY SCREEN BY PRA OR SAB PER SCHEDULE (CLASS I AND CLASS II) Routine 01/26/2024 10:00 AM PRINTED CIRCUIT BOARD REWORKER Pre-transplant evaluation for kidney transplant ESRD (end stage renal disease) (CMS/HCC) (HCC) POCT GLUCOSE DEVICE Routine 01/08/2024 9 :44 AM PRINTED CIRCUIT BOARD REWORKER TROPONIN I HIGH-SENSITIVITY 4-HOUR Timed 01/08/2024 7:44 AM PRINTED CIRCUIT BOARD REWORKER POCT GLUCOSE DEVICE Routine 01/08/2024 7 :43 AM PRINTED CIRCUIT BOARD REWORKER POCT GLUCOSE DEVICE Routine 01/08/2024 5 :48 AM PRINTED CIRCUIT BOARD REWORKER CRITICAL RESULT CALLBACK CARDIO CHEM Timed 01/08/2024 5:47 AM PRINTED CIRCUIT BOARD REWORKER TROPONIN I HIGH-SENSITIVITY 2-HOUR Timed 01/08/2024 5:47 AM PRINTED CIRCUIT BOARD REWORKER MDI INSTRUCT STAT 01/08/2024 4:48 AM PRINTED CIRCUIT BOARD REWORKER EGFR STAT 01/08/2024 3:39 AM PRINTED CIRCUIT BOARD REWORKER DIFFERENTIAL AUTO STAT 01/08/2024 3:3 9 AM PRINTED CIRCUIT BOARD REWORKER TROPONIN I HIGH-SENSITIVITY SERIES (BASELINE, 2HR, 4HR, 6HR) STAT 01/08/2024 3:39 AM PRINTED CIRCUIT BOARD REWORKER CBC WITH AUTO DIFFERENTIAL STAT 01/08/2024 3:39 AM PRINTED CIRCUIT BOARD REWORKER COMPREHENSIVE METABOLIC PANEL STAT 01/08/2024 3:39 AM PRINTED CIRCUIT BOARD REWORKER XR CHEST PA LATERAL 2 VIEWS ED 01/07/2024 10:56 PM PRINTED CIRCUIT BOARD REWORKER ECG 12-LEAD STAT 01/07/2024 10:21 PM PRINTED CIRCUIT BOARD REWORKER POCT GLUCOSE DEVICE Routine 01/07/2024 1 0:21 PM PRINTED CIRCUIT BOARD REWORKER COLONOSCOPY 07/21/2023 10:23 AM CDT HM MAMMOGRAPHY Routine 06/04/2021 LIPID PANEL Routine 04/30/2021 12:22 PM PRINTED CIRCUIT BOARD REWORKER Pre-transplant evaluation for kidney transplant End stage renal disease (CMS/HCC) (HCC) from Last 3 Months or Most Recently Relevant to Health Maintenance Results * HLA Antibody Screen by PRA or SAB per Schedule (Class I and Class II) (03/29/2024 10:00 AM PRINTED CIRCUIT BOARD REWORKER) Blood 03/29/2024 10:0 0 AM PRINTED CIRCUIT BOARD REWORKER Narrative HISTOTRAC - PRINTED CIRCUIT BOARD REWORKER Sample received in lab. Single Antigen Antibody Screen ordered. us Bashir Alston MD LAB BLOOD ORDERABLES Final R esult HISTOTRAC * HLA Antibody Screen - SAB (Class I and Class II) (03/29/2024 10:00 AM PRINTED CIRCUIT BOARD REWORKER) Class I Treatment EDTA HISTOTRAC Class I Dilution 1:1 HISTOTRAC Class I Tested Date 04/01/2024 HISTOTRAC Class I Result Positive HISTOTRAC Class I CPRA 96 HISTOTRAC Class I Increased Risk Bw6 HISTOTRAC Class I Moderate Risk A11, A43, A66; B27, B46, B73; Cw1, Cw7, Cw8, Cw9, Cw10, Cw12, Cw16 HISTOTRAC Class I Low Risk A25; B7, B42, B55, B61, B67, B81; Cw14 HISTOTRAC Class I Reportable Comments Bw6 pattern is present. HISTOTRAC Class II Treatment EDTA HISTOTRAC Class II Dilution 1:1 HISTOTRAC Class II Tested Date 04/01/2024 HISTOTRAC Class II Result Positive HISTOTRAC Class II CPRA 63 HISTOTRAC Class II Moderate Risk DR7, DR9, DR16, DR53; DPB1*01:01, DPB1*14:01 HISTOTRAC Class II Low Risk DR1, DR4, DR9, DR12, DR15; DPB1*03:01, DPB1*05:01, DPB1*06:01, DPB1*09:01, DPB1*10:01, DPB1*11:01, DPB1*13:01, DPB1*17:01 HISTOTRAC Class II Reportable Comments Allelic antibody not listed: DRB1*15:02, DRB3*03:01, DRB3*01:01 (alloantibod y, moderate risk), patient is DRB1*15:03, DRB3*02:02 per SSO. Allelic antibody not listed: DRB3*02:02 (autoantibod y), patient is DRB3*02:02 per SSO. HISTOTRAC 03/29/2024 10:0 0 AM PRINTED CIRCUIT BOARD REWORKER 04/04/2024 10:33 AM PRINTED CIRCUIT BOARD REWORKER Narrative HISTOTRAC - 04/04/2024 10:33 AM PRINTED CIRCUIT BOARD REWORKER Single-antigen HLA antibody screen is performed on serum samples using a method developed and validated by the [facility] laboratory based on an FDA-approved IVD kit (LABScreen Single-Antigen, [employer], [place], [place]). All patient serum samples are pretreated with EDTA before the screen to prevent complement interference. Additional serum treatments, such as adsorption and DTT treatment, may be performed as indicated. Interpretive comments: Low risk: MFI [id number]. Moderate risk: MFI 7379-6945. Increased risk: MFI >/= 5000. The presence [...] antigens to avoid. Testing performed at the [facility], [address] [place] [address], 5th floor, [place], [address]. [facility] # [id number]. Amber Berry, Ph.D., Surfboard Designer, HLA Laboratory Jonathan Brennan M.D., Ph.D., Applications Developer, [facility] Laboratory Rehana Alarcon, Ph.D., CLIA Applications Developer, [facility] Current methodology and interpretive comments last revised on 03/20/2022. Bashir Alston MD LAB BLOOD ORDERABLES Edited Result - Final HISTOTRAC * STRESS ECHO PHARMACOLOGIC W DOPPLER/CF W CONTRAST (02/26/2024 10:12 AM PRINTED CIRCUIT BOARD REWORKER) LV EF 58 % CARDIOREPORT Anatomical Region Laterality Modality Ultrasound 02/26/2024 8:00 AM PRINTED CIRCUIT BOARD REWORKER Narrative 02/26/2024 11:07 AM PRINTED CIRCUIT BOARD REWORKER Patient name: Bakari Smith Date of test: 02/26/2024 Hospital #: 0 Location: [facility] Interpreted by: Kip Pena M.D. Ph.D. Unemployment Specialist: Lainey Oh RDCS RN: Hilda Monk RN Reason for Test: pre-kidney transplant evaluation Study quality: Technically good Referring Physician: TONYA HAMMONDS MD Contrast Agent: 0.45 ml Definity Administered, (1.05 ml wasted). BASELINE STUDY: Wall Motion Scoring (1=Normal 2=Hypo 3=Akinetic 4=Dyskin./Aneurysm 0=Not visualized) Parasternal Long [place]:MAS=1 BAS=1 MIL=1 RENATO=1 Parasternal Short [place]:MAS=1 MIS=1 ND=1 MIL=1 MAL=1 MA=1 Apical 4 Chambers:=1 MIS=1 BIS=1 BAL=1 MAL=1 AL=1 AC=1 Apical 2 Chambers:AI=1 ND=1 BI=1 BA=1 MA=1 AA=1 AC=1 Ejection Fraction: [...] 2=Hypo 3=Akinetic 4=Dyskin./Aneurysm 0=Not visualized) Parasternal Long [place]:MAS=1 BAS=1 MIL=1 RENATO=1 Parasternal Short [place]:MAS=1 MIS=1 ND=1 MIL=1 MAL=1 MA=1 Apical 4 Chambers:=1 MIS=1 BIS=1 BAL=1 MAL=1 AL=1 AC=1 Apical 2 Chambers:AI=1 ND=1 BI=1 BA=1 MA=1 AA=1 AC=1 Intravenous dobutamine [...] Ph.D. By signing this report, the attending customer relations consultant certifies that he or she has personally supervised and interpreted the echocardiogram and has reviewed and or edited and agrees with the written comments contained within the report. Procedure Note Kip Pena MD PhD - 02/26/2024 Patient name: Bakari Smith Date of test: 02/26/2024 Hospital #: 0 Location: [facility] Interpreted by: Kip Pena M.D. Ph.D. Unemployment Specialist: Lainey Oh RDCS RN: Hilda Monk RN Reason for Test: pre-kidney transplant evaluation Study quality: Technically good Referring Physician: TONYA HAMMONDS MD Contrast Agent: 0.45 ml Definity Administered, (1.05 ml wasted). BASELINE STUDY: Wall Motion Scoring (1=Normal 2=Hypo 3=Akinetic 4=Dyskin./Aneurysm 0=Not visualized) Parasternal Long [place]:MAS=1 BAS=1 MIL=1 RENATO=1 Parasternal Short [place]:MAS=1 MIS=1 ND=1 MIL=1 MAL=1 MA=1 Apical 4 Chambers:=1 MIS=1 BIS=1 BAL=1 MAL=1 AL=1 AC=1 Apical 2 Chambers:AI=1 ND=1 BI=1 BA=1 MA=1 AA=1 AC=1 Ejection Fraction: [...] 2=Hypo 3=Akinetic 4=Dyskin./Aneurysm 0=Not visualized) Parasternal Long [place]:MAS=1 BAS=1 MIL=1 RENATO=1 Parasternal Short [place]:MAS=1 MIS=1 ND=1 MIL=1 MAL=1 MA=1 Apical 4 Chambers:=1 MIS=1 BIS=1 BAL=1 MAL=1 AL=1 AC=1 Apical 2 Chambers:AI=1 ND=1 BI=1 BA=1 MA=1 AA=1 AC=1 Intravenous dobutamine [...] Ph.D. By signing this report, the attending customer relations consultant certifies that he or she has personally supervised and interpreted the echocardiogram and has reviewed and or edited and agrees with the written comments contained within the report. us Tonya Hammonds MD CV ECHO PROCEDURES Final Result * HLA Antibody Screen by PRA or SAB per Schedule (Class I and Class II) (02/26/2024 10:00 AM PRINTED CIRCUIT BOARD REWORKER) Blood 02/26/2024 10:0 0 AM PRINTED CIRCUIT BOARD REWORKER Narrative HISTOTRAC - PRINTED CIRCUIT BOARD REWORKER Sample received in lab and stored. No testing performed at this time. us Bashir Alston MD LAB BLOOD ORDERABLES Final R esult HISTOTRAC * (ABNORMAL) eGFR (02/16/2024 11:34 AM PRINTED CIRCUIT BOARD REWORKER) eGFR 4(L) >=60 mL/min/1. 73 m2 Comment: [...] of Race in Diagnosing Kidney Disease, JASN 202). The CKD-EPI equation should not be used for patients with unstable renal function and has not been validated in children and those over 70. Current interpretive data was last reviewed 2020. Blood 02/16/2024 11:3 4 AM PRINTED CIRCUIT BOARD REWORKER 02/16/2024 12:02 PM PRINTED CIRCUIT BOARD REWORKER us Tonya Hammonds MD LAB BLOOD ORDERABLE S Final Result [facility] Department [place] [address] * Differential, auto (02/16/2024 11:34 AM PRINTED CIRCUIT BOARD REWORKER) Neutrophil abs 5.1 1.5 - 6.5 K/cumm Imm gran abs 0.1 0.0 - 0.1 K/cumm [facility] Lymphocyte abs 2.0 0.8 - 3.3 K/cumm [facility] Monocyte abs 0.6 0.2 - 0.8 K/cumm [facility] Eosinophil abs 0.1 0.0 - 0.5 K/cumm [facility] Basophil abs 0.0 0.0 - 0.1 K/cumm [facility] Neutrophil pct 64.7 % [facility] Comment: Interpretive Data Percent cell count reference ranges are not reported, since discordance with absolute values may lead to misinterpretation of CBC data. Current Interpretive Data was last revised on 2017. Imm gran pct 0.6 % [facility] Comment: Interpretive Data Percent cell count reference ranges are not reported, since discordance with absolute values may lead to misinterpretation of CBC data. Current Interpretive Data was last revised on 2017. Lymphocyte pct 25.3 % [facility] Comment: Interpretive Data Percent cell count reference ranges are not reported, since discordance with absolute values may lead to misinterpretation of CBC data. Current Interpretive Data was last revised on 2017. Monocyte pct 7.3 % [facility] Comment: Interpretive Data Percent cell count reference ranges are not reported, since discordance with absolute values may lead to misinterpretation of CBC data. Current Interpretive Data was last revised on 2017. Eosinophil pct 1.8 % [facility] Comment: Interpretive Data Percent cell count reference ranges are not reported, since discordance with absolute values may lead to misinterpretation of CBC data. Current Interpretive Data was last revised on 2017. Basophil pct 0.3 % [facility] Comment: Interpretive Data Percent cell count reference ranges are not reported, since discordance with absolute values may lead to misinterpretation of CBC data. Current Interpretive Data was last revised on 2017. Blood 02/16/2024 11:3 4 AM PRINTED CIRCUIT BOARD REWORKER 02/16/2024 11:45 AM PRINTED CIRCUIT BOARD REWORKER Tonya Hammonds MD LAB BLOOD ORDERABLE S Final Result Performing Organization Address City/[facility] Co de Phone Number [facility] Department [place] [address] * HIV 1/2 Antibody plus p24 Antigen Blood (02/16/2024 11:34 AM PRINTED CIRCUIT BOARD REWORKER) Pathologist [facility] HIV 1/2 ab + p24 ag Nonreactive Nonreactive Comment:Nonreactive for HIV- 1 antigen and HIV-1/HIV-2 antibodies. No laboratory evidence of HIV infection. If acute HIV infection is suspected, consider testing for HIV-1 RNA. Current interpretive data was last revised on 21. Blood 02/16/2024 11:3 4 AM PRINTED CIRCUIT BOARD REWORKER 02/16/2024 11:45 AM PRINTED CIRCUIT BOARD REWORKER us Tonya Hammonds MD LAB MICROBIOLOGY - GENERAL ORDERABLES Final Result Performing Organization Address City/State/[facility] Co de Phone Number [facility] [place] [address] * (ABNORMAL) CBC with auto differential (02/16/2024 11:34 AM PRINTED CIRCUIT BOARD REWORKER) Pathologist [facility] WBC 7.8 3.8 - 9.9 K/cumm Hgb 8.6(L) 11.9 - 15.5 g/dL [facility] Hct 28.3(L) 35.6 - 45.5 % [facility] Plt 265 150 - 400 K/cumm [facility] MPV 10.2 9.1 - 12.3 fL [facility] RBC 3.24(L) 3.90 - 5.20 M/cumm [facility] MCV 87.3 81.3 - 96.4 fL [facility] MCH 26.5(L) 27.1 - 33.3 pg [facility] MCHC 30.4(L) 32.3 - 35.7 g/dL [facility] RDW CV 14.9 11.1 - 14.9 % [facility] RDW SD 48.1 35.7 - 48.1 fL [facility] NRBC abs 0.00 0.00 - 0.01 K/cumm [facility] Blood 02/16/2024 11:3 4 AM PRINTED CIRCUIT BOARD REWORKER 02/16/2024 11:45 AM PRINTED CIRCUIT BOARD REWORKER us Tonya Hammonds MD LAB BLOOD ORDERABLE S Final Result Performing Organization Address City/[facility]/ZIP Co de Phone Number [facility] [place] [address] * Hepatitis C antibody Blood (02/16/2024 11:34 AM PRINTED CIRCUIT BOARD REWORKER) Hep C Ab Nonreactive Nonreactive Comment:Antibodies to HCV no t detected. Does NOT exclude the possibility of recent exposure to HCV. Current interpretive data was last revised on 21 Blood 02/16/2024 11:3 4 AM PRINTED CIRCUIT BOARD REWORKER 02/16/2024 11:45 AM PRINTED CIRCUIT BOARD REWORKER us Tonya Hammonds MD LAB MICROBIOLOGY - GENERAL ORDERABLES Final Result [facility] [place] [address] * Hepatitis B core antibody, total Blood (02/16/2024 11:34 AM PRINTED CIRCUIT BOARD REWORKER) Hep B core IgG/IgM Nonreactive Nonreactive Blood 02/16/2024 11:3 4 AM PRINTED CIRCUIT BOARD REWORKER 02/16/2024 11:45 AM PRINTED CIRCUIT BOARD REWORKER Tonya Hammonds MD LAB MICROBIOLOGY - GENERAL ORDERABLES Final Result Performing Organization Address City/[facility] Co de Phone Number [facility] [place] [address] * Hepatitis B surface antibody (immune status) Blood (02/16/2024 11:34 AM PRINTED CIRCUIT BOARD REWORKER) Pathologist [facility] HBsAb (immune status) Reactive Comment:This result is consi stent with immunity to Hepatitis B Virus when used in the setting of routine screening. Current interpretive data was last revised on 21 HBsAb (immune status) index 221.0 mIUnits/m L [facility] Blood 02/16/2024 11:3 4 AM PRINTED CIRCUIT BOARD REWORKER 02/16/2024 11:45 AM PRINTED CIRCUIT BOARD REWORKER Tonya Hammonds MD LAB MICROBIOLOGY - GENERAL ORDERABLES Final Result Performing Organization Address [facility] Co de Phone Number [facility] [place] [address] * Hepatitis B Surface Antigen Blood (02/16/2024 11:34 AM PRINTED CIRCUIT BOARD REWORKER) Pathologist [facility] HepBsAg Nonreactive Nonreactive Blood 02/16/2024 11:3 4 AM PRINTED CIRCUIT BOARD REWORKER 02/16/2024 11:45 AM PRINTED CIRCUIT BOARD REWORKER Tonya Hammonds MD LAB MICROBIOLOGY - GENERAL ORDERABLES Final Result Performing Organization Address City/[facility]/ZIP Co de Phone Number [facility] Department of Laboratories [place], [place] [address] * (ABNORMAL) Phosphorus (02/16/2024 11:34 AM PRINTED CIRCUIT BOARD REWORKER) Pathologist [facility] Phosphorus, pl 5.6(H) 2.3 - 4.5 mg/dL Blood 02/16/2024 11:3 4 AM PRINTED CIRCUIT BOARD REWORKER 02/16/2024 11:45 AM PRINTED CIRCUIT BOARD REWORKER Tonya Hammonds MD LAB BLOOD ORDERABLE S Final Result Performing Organization Address [facility] Co de Phone Number [facility] [place] [address] * (ABNORMAL) PTH (02/16/2024 11:34 AM PRINTED CIRCUIT BOARD REWORKER) [facility] PTH 335(H) 15 - 65 pg/mL Blood 02/16/2024 11:3 4 AM PRINTED CIRCUIT BOARD REWORKER 02/16/2024 11:45 AM PRINTED CIRCUIT BOARD REWORKER Result [facility] Tonya Hammonds MD LAB BLOOD ORDERABLE S Final Result Performing Organization Address [facility] de Phone Number [facility] [place] [address] * (ABNORMAL) Hemoglobin A1c (02/16/2024 11:34 AM PRINTED CIRCUIT BOARD REWORKER) [facility] Hgb A1C 6.2(H) 4.0 - 5.6 % Estimated Average Glucose 131 mg/dL [facility] Comment: The ADA recommends reporting an estimated Average Glucose (eAG) with all Hemoglobin A1c results using the equation derived from a study of 507 normal and diabetic adults. Minority populations were underrepresented and children were not included. (Diabetes Care 2020; 43(S1): S66-S76). The eAG is not equivalent to a fasting glucose. Blood 02/16/2024 11:3 4 AM PRINTED CIRCUIT BOARD REWORKER 02/16/2024 11:45 AM PRINTED CIRCUIT BOARD REWORKER Tonya Hammonds MD LAB BLOOD ORDERABLE S Final Result [facility] Department [place] [address] * (ABNORMAL) Comprehensive metabolic panel (02/16/2024 11:34 AM PRINTED CIRCUIT BOARD REWORKER) Sodium 140 135 - 145 mmol/L Potassium, pl 4.4 3.3 - 4.9 mmol/L [facility] Chloride 102 97 - 110 mmol/L [facility] CO2 28 22 - 32 mmol/L [facility] Anion gap 10 2 - 15 mmol/L B[facility] BUN 46(H) 6 - 25 mg/dL [facility] Creatinine 10.77(H) 0.60 - 1.10 mg/dL [facility] Glucose 223(H) 70 - 199 mg/dL [facility] Comment: Interpretive Data Fasting glucose >/= [...] 2022. Calcium 8.8 8.5 - 10.3 mg/dL [facility] Bilirubin, total 0.2 0.1 - 1.2 mg/dL [facility] Protein, pl 6.8 6.5 - 8.5 g/dL [facility] Albumin 3.1(L) 3.5 - 5.0 g/dL [facility] Alk phos 233(H) 40 - 130 Units/L [facility] ALT 57(H) 7 - 45 Units/L [facility] AST 50(H) 10 - 45 Units/L [facility] Blood 02/16/2024 11:3 4 AM PRINTED CIRCUIT BOARD REWORKER 02/16/2024 11:45 AM PRINTED CIRCUIT BOARD REWORKER us Tonya Hammonds MD LAB BLOOD ORDERABLE S Final Result [facility] Department [place] [address] * HLA Antibody Screen by PRA or SAB per Schedule (Class I and Class II) (01/26/2024 10:00 AM PRINTED CIRCUIT BOARD REWORKER) Blood 01/26/2024 10:0 0 AM PRINTED CIRCUIT BOARD REWORKER Narrative HISTOTR[facility] - PRINTED CIRCUIT BOARD REWORKER Sample received in lab. Single Antigen Antibody Screen ordered. us Bashir Alston MD LAB BLOOD ORDERABLES Final R esult [facility] * HLA Antibody Screen - SAB (Class I and Class II) (01/26/2024 10:00 AM PRINTED CIRCUIT BOARD REWORKER) Class I Treatment EDTA HISTOTRAC Class I [...] per SSO. HISTOTRAC 01/26/2024 10:0 0 AM PRINTED CIRCUIT BOARD REWORKER 01/29/2024 1:28 PM PRINTED CIRCUIT BOARD REWORKER Narrative HISTOTRAC - 01/29/2024 1:28 PM PRINTED CIRCUIT BOARD REWORKER Single-antigen HLA antibody screen is performed on serum samples using a method developed and validated by the [facility] HLA laboratory based on an FDA-approved IVD kit (Disrupt CKcreen Single-Antigen, [employer], [place], [place]). All patient serum samples are pretreated with EDTA before the screen to prevent complement interference. Additional serum treatments, such as adsorption and DTT treatment, may be performed as indicated. Interpretive comments: Low risk: MFI [id number]. Moderate risk: MFI [id number]. Increased risk: MFI >/= 5000. The presence [...] antigens to avoid. Testing performed at the [facility], [facility], [address] floor, [place], [address]. [facility] # [id number]. Amber Berry, Ph.D., Surfboard Designer, HLA Laboratory Jonathan Brennan M.D., Ph.D., Applications Developer, [facility] Laboratory Rehana Alarcon, Ph.D., [place] Applications Developer, [facility] Current methodology and interpretive comments last revised on 03/20/2022. Bashir Alston MD LAB BLOOD ORDERABLES Final R esult Performing Organization Address [facility]/ZIP Co de Phone Number H[facility] * POCT glucose (01/08/2024 9:44 AM PRINTED CIRCUIT BOARD REWORKER) Glucose, POC 97 70 - 199 mg/dL Blood 01/08/2024 9:44 AM PRINTED CIRCUIT BOARD REWORKER 01/08/2024 9:44 AM PRINTED CIRCUIT BOARD REWORKER Brandan rOr MD LAB POCT ORDERABLES - DEV ICE Final Result Performing Organization Address [facility] Co de Phone Number [facility] Department [place] [address] * (ABNORMAL) Troponin I high-sensitivity 4-hour (01/08/2024 7:44 AM PRINTED CIRCUIT BOARD REWORKER) Trop I hs 131(H) <=17 ng/L Comment: Interpretive Data For further hscTnI resources including the diagnostic algorithm and an aid in interpretation, copy and paste this link: https://bjhlab.testcatalog.org/show/hsTrop-1 Current Interpretive Data last revised 2019. Trop I hs pct delta 8 % [facility] Trop I hs interp Equivocal [facility] Blood 01/08/2024 7:44 AM PRINTED CIRCUIT BOARD REWORKER 01/08/2024 7:53 AM PRINTED CIRCUIT BOARD REWORKER Stacey Thomas MD LAB BLOOD ORDERABLES Final Result Performing Organization Address City/[facility] Co de Phone Number [facility] [place] [address] * POCT glucose (01/08/2024 7:43 AM PRINTED CIRCUIT BOARD REWORKER) Glucose, POC 92 70 - 199 mg/dL Blood 01/08/2024 7:43 AM PRINTED CIRCUIT BOARD REWORKER 01/08/2024 7:43 AM PRINTED CIRCUIT BOARD REWORKER us Brandan Orr MD LAB POCT ORDERABLES - DEV ICE Final Result Performing Organization Address [facility] Co de Phone Number [facility] [place] [address] * POCT glucose (01/08/2024 5:48 AM PRINTED CIRCUIT BOARD REWORKER) Glucose, POC 109 70 - 199 mg/dL Blood 01/08/2024 5:48 AM PRINTED CIRCUIT BOARD REWORKER 01/08/2024 5:48 AM PRINTED CIRCUIT BOARD REWORKER Amauri Greene MD PhD LAB POCT ORDERABLES - DEVICE Final Result Performing Organization Address [facility] Co de Phone Number [facility] [place] [address] * (ABNORMAL) Troponin I high-sensitivity 2-hour (01/08/2024 5:47 AM PRINTED CIRCUIT BOARD REWORKER) Trop I hs 140(H) <=17 ng/L Comment: reviewed Interpretive Data For further hscTnI resources including the diagnostic algorithm and an aid in interpretation, copy and paste this link: https://bjhlab.testcatalog.org/show/hsTrop-1 Current Interpretive Data last revised 2019. Trop I hs pct delta 16(C) % [facility] Comment:reviewed Trop I hs interp Significa nt(C) [facility] Comment:reviewed Blood 01/08/2024 5:47 AM PRINTED CIRCUIT BOARD REWORKER 01/08/2024 5:53 AM PRINTED CIRCUIT BOARD REWORKER Stacey Thomas MD LAB BLOOD ORDERABLES Final Result Performing Organization Address City/[facility] Co de Phone Number [facility] [place] [address] * Critical result callback Cardio chemistry (01/08/2024 5:47 AM PRINTED CIRCUIT BOARD REWORKER) Date Notified [id number] Time Notified 625 DENNIS HOLT Test name Trop I hs 2hr p DENNIS HOLT Called/Read Back Corin HOLT Credentials MD DENNIS HOLT Called By SHAWN HOLT Blood 01/08/2024 5:47 AM PRINTED CIRCUIT BOARD REWORKER 01/08/2024 5:53 AM PRINTED CIRCUIT BOARD REWORKER Stacey Thomas MD LAB BLOOD ORDERABLES Final Result Performing Organization Address [facility] de Phone Number [facility] [place] [address] * (ABNORMAL) Troponin I high-sensitivity series (baseline, 2hr, 4hr, 6hr) (01/08/2024 3:39 AM PRINTED CIRCUIT BOARD REWORKER) Trop I hs 121(H) <=17 ng/L Comment: Interpretive Data For further [facility] resources including the diagnostic algorithm and an aid in interpretation, copy and paste this link: https://bjhlab.testcatalog.org/show/hsTrop-1 Current Interpretive Data last revised 2019. Blood 01/08/2024 3:39 AM PRINTED CIRCUIT BOARD REWORKER 01/08/2024 3:46 AM PRINTED CIRCUIT BOARD REWORKER Amauri Greene MD PhD LAB BLOOD ORDERABLE S Final Result Performing Organization Address [facility] Co de Phone Number [facility] [place] [address] * (ABNORMAL) eGFR (01/08/2024 3:39 AM PRINTED CIRCUIT BOARD REWORKER) Pathologist [facility] eGFR 3(L) >=60 mL/min/1. 73 m2 Comment: [...] last reviewed 2020. Blood 01/08/2024 3:39 AM PRINTED CIRCUIT BOARD REWORKER 01/08/2024 3:46 AM PRINTED CIRCUIT BOARD REWORKER us Stacey Thomas MD LAB BLOOD ORDERABLES Final Result [facility] [place] [address] * (ABNORMAL) Differential, auto (01/08/2024 3:39 AM PRINTED CIRCUIT BOARD REWORKER) Pathologist [facility] Neutrophil abs 7.0(H) 1.5 - 6.5 K/cumm Imm gran abs 0.1 0.0 - 0.1 K/cumm [facility] Lymphocyte abs 2.2 0.8 - 3.3 K/cumm [facility] Monocyte abs 1.0(H) 0.2 - 0.8 K/cumm [facility] Eosinophil abs 0.2 0.0 - 0.5 K/cumm [facility] Basophil abs 0.1 0.0 - 0.1 K/cumm [facility] Neutrophil pct 66.7 % [facility] Comment: Interpretive Data Percent cell count reference ranges are not reported, since discordance with absolute values may lead to misinterpretation of CBC data. Current Interpretive Data was last revised on 2017. Imm gran pct 1.2 % [facility] Comment: Interpretive Data Percent cell count reference ranges are not reported, since discordance with absolute values may lead to misinterpretation of CBC data. Current Interpretive Data was last revised on 2017. Lymphocyte pct 20.4 % [facility] Comment: Interpretive Data Percent cell count reference ranges are not reported, since discordance with absolute values may lead to misinterpretation of CBC data. Current Interpretive Data was last revised on 2017. Monocyte pct 9.0 % [facility] Comment: Interpretive Data Percent cell count reference ranges are not reported, since discordance with absolute values may lead to misinterpretation of CBC data. Current Interpretive Data was last revised on 2017. Eosinophil pct 1.7 % [facility] Comment: Interpretive Data Percent cell count reference ranges are not reported, since discordance with absolute values may lead to misinterpretation of CBC data. Current Interpretive Data was last revised on 2017. Basophil pct 1.0 % [facility] Comment: Interpretive Data Percent cell count reference ranges are not reported, since discordance with absolute values may lead to misinterpretation of CBC data. Current Interpretive Data was last revised on 2017. Blood 01/08/2024 3:39 AM PRINTED CIRCUIT BOARD REWORKER 01/08/2024 4:20 AM PRINTED CIRCUIT BOARD REWORKER us Stacey Thomas MD LAB BLOOD ORDERABLES Final Result [facility] [place] [address] * (ABNORMAL) CBC with auto differential (01/08/2024 3:39 AM PRINTED CIRCUIT BOARD REWORKER) WBC 10.6(H) 3.8 - 9.9 K/cumm Hgb 9.3(L) 11.9 - 15.5 g/dL [facility] Hct 29.7(L) 35.6 - 45.5 % [facility] Plt 205 150 - 400 K/cumm [facility] MPV 10.6 9.1 - 12.3 fL [facility] RBC 3.44(L) 3.90 - 5.20 M/cumm [facility] MCV 86.3 81.3 - 96.4 fL [facility] MCH 27.0(L) 27.1 - 33.3 pg [facility] MCHC 31.3(L) 32.3 - 35.7 g/dL [facility] RDW CV 14.5 11.1 - 14.9 % [facility] RDW SD 45.1 35.7 - 48.1 fL [facility] NRBC abs 0.00 0.00 - 0.01 K/cumm [facility] Blood 01/08/2024 3:39 AM PRINTED CIRCUIT BOARD REWORKER 01/08/2024 4:20 AM PRINTED CIRCUIT BOARD REWORKER Amauri Greene MD PhD LAB BLOOD ORDERABLE S Final Result [facility] Department [place] [address] * (ABNORMAL) Comprehensive metabolic panel (01/08/2024 3:39 AM PRINTED CIRCUIT BOARD REWORKER) Sodium 139 135 - 145 mmol/L Potassium, pl 4.8 3.3 - 4.9 mmol/L [facility] Chloride 101 97 - 110 mmol/L [facility] CO2 23 22 - 32 mmol/L [facility] Anion gap 15 2 - 15 mmol/L [facility] BUN 67(H) 6 - 25 mg/dL [facility] Creatinine 13.73(H) 0.60 - 1.10 mg/dL [facility] Glucose 138 70 - 199 mg/dL [facility] Comment: Interpretive Data Fasting glucose >/= [...] AST 45 10 - 45 Units/L [facility] Blood 01/08/2024 3:39 AM PRINTED CIRCUIT BOARD REWORKER 01/08/2024 3:46 AM PRINTED CIRCUIT BOARD REWORKER Amauri Greene MD PhD LAB BLOOD ORDERABLE S Final Result [facility] [place] [address] * XR Chest PA Lateral 2 Views (01/07/2024 10:56 PM PRINTED CIRCUIT BOARD REWORKER) Anatomical Region Laterality Modality Body, Chest N/A Computed Radiogr aphy 01/08/2024 12:1 0 AM PRINTED CIRCUIT BOARD REWORKER Impressions 01/08/2024 8:52 AM PRINTED CIRCUIT BOARD REWORKER The current study is compared with the [...] Nick Miles M.D. Narrative 01/08/2024 8:52 AM PRINTED CIRCUIT BOARD REWORKER EXAMINATION: 2 view chest radiograph Procedure Note [...] Result * ECG 12-LEAD (01/07/2024 10:21 PM PRINTED CIRCUIT BOARD REWORKER) Narrative [facility] - 01/07/2024 10:21 PM PRINTED CIRCUIT BOARD REWORKER Stacey Thomas MD 01/07/2024 10:23 PM ECG [...] Interpretation: No significant change Stacey Thomas MD 01/07/24 2223 us Amauri Greene MD PhD ECG ORDERABLES Fin al Result Performing Organization Address City/[facility]/ZIP Co de Phone Number [facility] * (ABNORMAL) POCT glucose (01/07/2024 10:21 PM PRINTED CIRCUIT BOARD REWORKER) Glucose, POC 200(H) 70 - 199 mg/dL Blood 01/07/2024 10:2 1 PM PRINTED CIRCUIT BOARD REWORKER 01/07/2024 10:21 PM PRINTED CIRCUIT BOARD REWORKER us Notinfile Unknown LAB POCT ORDERABLES - DEVICE F inal Result Performing Organization Address [facility] de Phone Number [facility] [place] [address] * Colonoscopy (07/21/2023 10:23 AM CDT) Anatomical Region Laterality Modality Other Narrative Procedure Note Haritha Stover MD - 07/21/2023 10:23 AM CDT [facility] Patient Name: Bakari Smith Procedure Date: 07/21/2023 10:23 AM Date of : 1980 Admit Type: Outpatient Age: 43 Gender: Female Attending MD: Haritha Stover M.D. Room: [facility] ENDOSCOPY ROOM 02 Note Status: Finalized [...] The scope was passed under direct vision.The [id number] Colonoscope was introducedthrough the anus and advanced to the the cecum, identifiedby appendiceal orifice and ileocecal valve. The colonoscopy was performed without difficulty. The patient tolerated the procedure well. The qualityof the bowel preparation was evaluated using the BBPS (Greer Bowel Preparation Scale) with scores of:Right Colon [...] Result * Lipid panel (04/30/2021 12:22 PM PRINTED CIRCUIT BOARD REWORKER) Cholesterol 139 30 - 199 mg/dL DENNIS [...] revised on 2017. HDL 70 >=40 mg/dL [facility] Comment: Interpretive Data Ages < or [...] on 2017. LDL, calculated 56 <=129 mg/dL [facility] Comment: Interpretive Data Ages < or = [...] revised on 2017. Non-HDL Cholesterol 69 mg/dL [facility] Comment: Interpretive Data Ages < or = [...] Risk Reduction in Children and Adolescents. Pediatrics 2010;128:S213 2. NCEP Expert Panel. Circulation 2004;110:227 Current Interpretive Data was last revised on 2017. Chol/HDL ratio 2 [facility] Blood 04/30/2021 12:2 2 PM PRINTED CIRCUIT BOARD REWORKER 04/30/2021 1:03 PM PRINTED CIRCUIT BOARD REWORKER us Ren Pelayo MD LAB BLOOD ORDERABLES Final Result [facility]NIS [facility] [place] [address] from Last 3 Months or Most Recently Relevant to Health Maintenance Insurance [employer] [facility] MEDICARE MEDICARE MEDICARE MEDICARE Advance Directives For more information, please contact: [phone] * Full Code (Latest Code Status on File) Date Activated Date Inactivated Comments 07/21/2023 9:59 AM 07/21/2023 3:56 PM Care Teams Corporate Tax Preparer Relationship Specialty Start Date End Date No, Physician PCP - General 02/16/24 Almita Rizzo, RN [address] [facility] [address] [place] [address] Chucking And Sawing Machine Operator 04/04/21 Beth Fernandez MD [address] [facility] [address] [place] [address] Referring Physician Nephrology 04/04/21 Maday Oviedo MD [address] [facility] [address] [place] [address] Neurology 09/12/22 Tomasz Scott DO [address] [place] [address] Cell Stripper Final Cardiology 09/16/22
--- OUTSIDE RECORDS SUMMARY | 2024-04-04 12:33 | XMS_ITS | Encounter Summary ---
Author Organization [facility] Healthcare Address [address] [place] [address] Care Team Providers Care Construction Pit Worker Name Role Phone Jessie Dickson NP Primary Care Provider [phone] Almita Rizzo RN Unavailable [phone] Beth Fernandez MD Unavailable [phone] Maday Oviedo MD Unavailable [phone] Tomasz Scott DO Unavailable [phone] Bashir Alston MD Primary Care Provider [phone] No, Physician Primary Care Provider [phone] Reason for Visit * Reason Onset Date Comments READY TO SCHEDULE 04/28/2023 Encounter Details Date Type Department Care Team (Late st Contact Info) Description 04/28/2023 Telephone [facility] Specialty Services [address] [place] [address] Miscellaneous, Not In File READY TO SCHEDULE [...] on file Legal Sex Female 11:50 PM SUPERINTENDENT MEASUREMENT Gender Identity Not on file Sexual Orientation Not on file documented as of this encounter Plan of Treatment Not on file documented as of this encounter Visit Diagnoses Not on filedocumented in this encounter Additional Health Concerns Infection Onset Date Last Indicated Resolved Time COVID: Suspected 12/01/2023 12/01/2023 12/01/2023 7:33 PM CDT documented as of this encounter Care Teams Construction Pit Worker Relationship Specialty Start Date End Date Jessie Dickson NP [address] [place] [address] PCP - General Nurse Practitioner 03/05/21 07/07/23 Bashir Alston MD [address] [facility] [address] [place] [address] PCP - General Transplant 07/08/23 07/08/23 No, Physician PCP - General 02/16/24 Almita Rizzo, RN [address] [facility] [address] [place] [address] Telecom Coordinator 04/04/21 Beth Fernandez MD [address] [place] [address] Referring Physician Nephrology 04/04/21 Maday Oviedo MD [address] [place] [address] Neurology 09/12/22 Tomasz Scott DO [address] [place] [address] Wellfield Technician Cardiology 09/16/22 documented as of this encounter
--- OUTSIDE RECORDS SUMMARY | 2024-04-04 12:33 | XMS_ITS | Clinical Summary ---
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 [address] [place] [address] Pre-transplant evaluation for kidney transplant; ESRD (end stage renal disease) (CMS/[facility]) ([facility]) Discharge Disposition: Discharge to home or self care 03/22/2024 Documentation [facility] Transplant Kidney [address] [facility] [address] Mailstop [phone] [place] [address] Almita Rizzo, RN Waitlist Maintenance 02/29/2024 Telephone [facility] Transplant Kidney [address] [facility] [address] Mailstop [phone] [place] [address] Almita Rizzo RN Waitlist Maintenance 02/26/2024 10:00 AM MORTGAGE CONSULTANT - 02/26/2024 11:59 PM MORTGAGE CONSULTANT Hospital Encounter [address] [address] Pre-transplant evaluation for kidney transplant; ESRD (end stage renal disease) (CMS/HCC) ([facility]) Discharge Disposition: Discharge to home or self care 02/26/2024 7:21 AM MORTGAGE CONSULTANT - 02/26/2024 11:59 PM MORTGAGE CONSULTANT Hospital Encounter [facility] [address] [place] [address] Pre-kidney transplant, patient on transplant list; ESRD (end stage renal disease) (CMS/HCC) ([facility]) Discharge Disposition: Discharge to home or self care 02/18/2024 Documentation [facility] Transplant Kidney [address] [facility] [address] Mailstop [phone] [place] [address] Anjali Gastelum Appointment/Schedul es 02/18/2024 Documentation [facility] Transplant Kidney [address] [facility] [address] Mailstop [phone] [place] [address] Almita Rizzo RN Waitlist Maintenance 02/16/2024 11:25 AM MORTGAGE CONSULTANT Lab [facility] ([facility]) [address] [place] [id number] Pre-kidney transplant, patient on transplant list; ESRD (end stage renal disease) (CMS/HCC) ([facility]) 01/26/2024 10:00 AM MORTGAGE CONSULTANT - 01/26/2024 11:59 PM MORTGAGE CONSULTANT Hospital Encounter [address] [address] Pre-transplant evaluation for kidney transplant; ESRD (end stage renal disease) (CMS/HCC) ([facility]) Discharge Disposition: Discharge to home or self care 01/25/2024 Telephone [facility] Transplant Kidney [address] [facility] [address] Mailstop [phone] [place] [address] Kathryn Still 01/08/2024 2:57 AM MORTGAGE CONSULTANT - 01/08/2024 9:59 AM MORTGAGE CONSULTANT Emergency [facility] Emergency Department 1 [facility] [place] [address] Amauri Greene MD PhD Orr, Brandan Martinez [...] History Date Comments Type 2 diabetes mellitus ([facility]) 09/17/2012 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 ([facility]) ([facility]) 03/05/2021 Hypertension 2021 Family History Medical History [...] on file Legal Sex Female 11:50 PM MORTGAGE CONSULTANT Gender Identity Not on file Sexual Orientation Not on file Obstetrics History Para Term AB IAB SAB Ectopic Multiple Livin g Live Births 3 3 2 Date Outcome GA Total Labor Labor//3rd Weight Sex Type Anes PTL Yris A1 A5 Name Clin Para Para Para Last Filed Vital Signs Vital Sign Reading Time Taken Comments Blood Pressure 165/85 02/26/2024 10:12 AM MORTGAGE CONSULTANT Pulse 100 02/26/2024 10:12 AM MORTGAGE CONSULTANT Temperature 36.7 C (98.1 F) 01/08/2024 9:45 AM MORTGAGE CONSULTANT Respiratory Rate 16 01/08/2024 8:30 AM MORTGAGE CONSULTANT Oxygen Saturation 97% 01/08/2024 9:30 AM MORTGAGE CONSULTANT Inhaled Oxygen Concentration - - Weight 90.7 kg (200 lb) 02/26/2024 8:40 AM MORTGAGE CONSULTANT Height 160 cm (5' 3 ) 02/26/2024 8:40 AM MORTGAGE CONSULTANT Body Mass Index 35.43 02/26/2024 8:40 AM MORTGAGE CONSULTANT Plan of Treatment Health Maintenance Due Date [...] this topic Medical Devices Implanted Type Area Mortgage Counselor Device Identifier Shelf Expiration Date Model / Serial / Lot [employer] [id number] [place] 15fr 62cm 2 Cuff Radiopaque Peritoneal Curl Catheter - Sn/A - [id number] Implanted:Qty : 1 on 03/14/2021 by Gildardo Leggett MD at [facility] Catheter N/A: Abdomen [employer] 07/01/2025 [id number] / N/A / [id number] Description:Peritoneal Dialy sis Catheter, Curl Cath, 2 Cuffs Graft Vasc 45cm 4-6mm [place] Acuseal Eptfe 3 Layer Kink Rst - [id number] - [id number] Implanted:Qty : 1 on 05/08/2022 by Uche Katz MD at [facility] Graft Left: Arm Wl [place] [employer] [id number] 05/21/2024 [id number] / [id number] / 00 Procedures Procedure Name Priority Date/Time Associated Diagnosis Comments HLA ANTIBODY SCREEN - SAB (CLASS I AND CLASS II) Routine 03/29/2024 10:00 AM MORTGAGE CONSULTANT Pre-transplant evaluation for kidney transplant ESRD (end stage renal disease) (CMS/HCC) (HCC) HLA ANTIBODY SCREEN BY PRA OR SAB PER SCHEDULE (CLASS I AND CLASS II) Routine 03/29/2024 10:00 AM MORTGAGE CONSULTANT Pre-transplant evaluation for kidney transplant ESRD (end stage renal disease) (CMS/HCC) (HCC) STRESS ECHO PHARMACOLOGIC W DOPPLER/CF W CONTRAST Routine 02/26/2024 10:12 AM MORTGAGE CONSULTANT Pre-kidney transplant, patient on transplant list ESRD (end stage renal disease) (CMS/HCC) (HCC) HLA ANTIBODY SCREEN BY PRA OR SAB PER SCHEDULE (CLASS I AND CLASS II) Routine 02/26/2024 10:00 AM MORTGAGE CONSULTANT Pre-transplant evaluation for kidney transplant ESRD (end stage renal disease) (CMS/HCC) (HCC) EGFR Routine 02/16/2024 11:34 AM MORTGAGE CONSULTANT Pre-kidney transplant, patient on transplant list ESRD (end stage renal disease) (CMS/HCC) (HCC) DIFFERENTIAL AUTO Routine 02/16/2024 11: 34 AM MORTGAGE CONSULTANT Pre-kidney transplant, patient on transplant list ESRD (end stage renal disease) (CMS/HCC) (HCC) CBC WITH AUTO DIFFERENTIAL Routine 02/16/2024 11:34 AM MORTGAGE CONSULTANT Pre-kidney transplant, patient on transplant list ESRD (end stage renal disease) (CMS/HCC) (HCC) COMPREHENSIVE METABOLIC PANEL Routine 02/16/2024 11:34 AM MORTGAGE CONSULTANT Pre-kidney transplant, patient on transplant list ESRD (end stage renal disease) (CMS/HCC) (HCC) PHOSPHORUS Routine 02/16/2024 11:34 AM MORTGAGE CONSULTANT Pre-kidney transplant, patient on transplant list ESRD (end stage renal disease) (CMS/HCC) (HCC) PTH Routine 02/16/2024 11:34 AM MORTGAGE CONSULTANT Pre-kidney transplant, patient on transplant list ESRD (end stage renal disease) (CMS/HCC) (HCC) HEMOGLOBIN A1C Routine 02/16/2024 11:34 AM MORTGAGE CONSULTANT Pre-kidney transplant, patient on transplant list ESRD (end stage renal disease) (CMS/HCC) (HCC) HIV 1/2 ANTIBODY PLUS P24 ANTIGEN Routine 02/16/2024 11:34 AM MORTGAGE CONSULTANT Pre-kidney transplant, patient on transplant list ESRD (end stage renal disease) (CMS/HCC) (HCC) HEPATITIS B SURFACE ANTIBODY (IMMUNE STATUS) Routine 02/16/2024 11:34 AM MORTGAGE CONSULTANT Pre-kidney transplant, patient on transplant list ESRD (end stage renal disease) (CMS/HCC) (HCC) HEPATITIS B SURFACE ANTIGEN Routine 02/16/2024 11:34 AM MORTGAGE CONSULTANT Pre-kidney transplant, patient on transplant list ESRD (end stage renal disease) (CMS/HCC) (HCC) HEPATITIS C ANTIBODY Routine 02/16/2024 11:34 AM MORTGAGE CONSULTANT Pre-kidney transplant, patient on transplant list ESRD (end stage renal disease) (CMS/HCC) (HCC) HEPATITIS B CORE ANTIBODY, TOTAL Routine 02/16/2024 11:34 AM MORTGAGE CONSULTANT Pre-kidney transplant, patient on transplant list ESRD (end stage renal disease) (CMS/HCC) (HCC) HLA ANTIBODY SCREEN - SAB (CLASS I AND CLASS II) Routine 01/26/2024 10:00 AM MORTGAGE CONSULTANT Pre-transplant evaluation for kidney transplant ESRD (end stage renal disease) (CMS/HCC) (HCC) HLA ANTIBODY SCREEN BY PRA OR SAB PER SCHEDULE (CLASS I AND CLASS II) Routine 01/26/2024 10:00 AM MORTGAGE CONSULTANT Pre-transplant evaluation for kidney transplant ESRD (end stage renal disease) (CMS/HCC) (HCC) POCT GLUCOSE DEVICE Routine 01/08/2024 9 :44 AM MORTGAGE CONSULTANT TROPONIN I HIGH-SENSITIVITY 4-HOUR Timed 01/08/2024 7:44 AM MORTGAGE CONSULTANT POCT GLUCOSE DEVICE Routine 01/08/2024 7 :43 AM MORTGAGE CONSULTANT POCT GLUCOSE DEVICE Routine 01/08/2024 5 :48 AM MORTGAGE CONSULTANT CRITICAL RESULT CALLBACK CARDIO CHEM Timed 01/08/2024 5:47 AM MORTGAGE CONSULTANT TROPONIN I HIGH-SENSITIVITY 2-HOUR Timed 01/08/2024 5:47 AM MORTGAGE CONSULTANT MDI INSTRUCT STAT 01/08/2024 4:48 AM MORTGAGE CONSULTANT EGFR STAT 01/08/2024 3:39 AM MORTGAGE CONSULTANT DIFFERENTIAL AUTO STAT 01/08/2024 3:3 9 AM MORTGAGE CONSULTANT TROPONIN I HIGH-SENSITIVITY SERIES (BASELINE, 2HR, 4HR, 6HR) STAT 01/08/2024 3:39 AM MORTGAGE CONSULTANT CBC WITH AUTO DIFFERENTIAL STAT 01/08/2024 3:39 AM MORTGAGE CONSULTANT COMPREHENSIVE METABOLIC PANEL STAT 01/08/2024 3:39 AM MORTGAGE CONSULTANT XR CHEST PA LATERAL 2 VIEWS ED 01/07/2024 10:56 PM MORTGAGE CONSULTANT ECG 12-LEAD STAT 01/07/2024 10:21 PM MORTGAGE CONSULTANT POCT GLUCOSE DEVICE Routine 01/07/2024 1 0:21 PM MORTGAGE CONSULTANT COLONOSCOPY 07/21/2023 10:23 AM CDT HM MAMMOGRAPHY Routine 06/04/2021 LIPID PANEL Routine 04/30/2021 12:22 PM MORTGAGE CONSULTANT Pre-transplant evaluation for kidney transplant End stage renal disease (CMS/HCC) (HCC) from Last 3 Months or Most Recently Relevant to Health Maintenance Results * HLA Antibody Screen by PRA or SAB per Schedule (Class I and Class II) (03/29/2024 10:00 AM MORTGAGE CONSULTANT) Blood 03/29/2024 10:0 0 AM MORTGAGE CONSULTANT Narrative HISTOTR[facility] - MORTGAGE CONSULTANT Sample received in lab. Single Antigen Antibody Screen ordered. us Bashir Alston MD LAB BLOOD ORDERABLES Final R esult HISTOTR[facility] * HLA Antibody Screen - SAB (Class I and Class II) (03/29/2024 10:00 AM MORTGAGE CONSULTANT) Class I Treatment EDTA HISTOT[facility] Class I [...] per SSO. HISTOT[facility]AC 03/29/2024 10:0 0 AM MORTGAGE CONSULTANT 04/04/2024 10:33 AM MORTGAGE CONSULTANT Narrative HISTOTRAC - 04/04/2024 10:33 AM MORTGAGE CONSULTANT Single-antigen HLA antibody screen is performed on serum samples using a method developed and validated by the [facility] HLA laboratory based on an FDA-approved IVD kit (LABScreen Single-Antigen, [employer], [place], [place]). All patient serum samples are pretreated with EDTA before the screen to prevent complement interference. Additional serum treatments, such as adsorption and DTT treatment, may be performed as indicated. Interpretive comments: Low risk: MFI [id number]. Moderate risk: MFI [id number]. Increased risk: MFI >/= 5000. The presence [...] to avoid. Testing performed at the [facility], [address] [place] [address], 5th floor, [place], [address]. IA # [id number]. Amber Berry, Ph.D., Awning Assembler, HLA Laboratory Jonathan Brennan M.D., Ph.D., Lacquer Sizer, HLA Laboratory Rehana Alarcon, Ph.D., CLIA Lacquer Sizer, [facility] Clinical Laboratories Current methodology and interpretive comments last revised on 03/20/2022. us Bashir Alston MD LAB BLOOD ORDERABLES Edited Result - Final [facility]OT[facility] * STRESS ECHO PHARMACOLOGIC W DOPPLER/CF W CONTRAST (02/26/2024 10:12 AM MORTGAGE CONSULTANT) LV EF 58 % CARDIOREPORT Anatomical Region Laterality Modality Ultrasound 02/26/2024 8:00 AM MORTGAGE CONSULTANT Narrative 02/26/2024 11:07 AM MORTGAGE CONSULTANT Patient name: Bakari Smith Date of test: 02/26/2024 Hospital #: 0 Location: [facility] Interpreted by: Kip Pena M.D. Ph.D. Uptwist Spinner: Lainey Oh RDCS RN: Hilda Monk RN Reason for Test: pre-kidney transplant evaluation Study quality: Technically good Referring Physician: TONYA HAMMONDS MD Contrast Agent: 0.45 ml Definity Administered, (1.05 ml wasted). BASELINE STUDY: Wall Motion Scoring (1=Normal 2=Hypo 3=Akinetic 4=Dyskin./Aneurysm 0=Not visualized) Parasternal Long [place]:MAS=1 BAS=1 MIL=1 RENATO=1 Parasternal Short [place]:MAS=1 MIS=1 VT=1 MIL=1 MAL=1 MA=1 Apical 4 Chambers:=1 MIS=1 BIS=1 BAL=1 MAL=1 AL=1 AC=1 Apical 2 Chambers:AI=1 VT=1 BI=1 BA=1 MA=1 AA=1 AC=1 Ejection Fraction: [...] 2=Hypo 3=Akinetic 4=Dyskin./Aneurysm 0=Not visualized) Parasternal Long [place]:MAS=1 BAS=1 MIL=1 RENATO=1 Parasternal Short [place]:MAS=1 MIS=1 VT=1 MIL=1 MAL=1 MA=1 Apical 4 Chambers:=1 MIS=1 BIS=1 BAL=1 MAL=1 AL=1 AC=1 Apical 2 Chambers:AI=1 VT=1 BI=1 BA=1 MA=1 AA=1 AC=1 Intravenous dobutamine [...] Ph.D. By signing this report, the attending washer assembler certifies that he or she has personally supervised and interpreted the echocardiogram and has reviewed and or edited and agrees with the written comments contained within the report. Procedure Note Kip Pena MD PhD - 02/26/2024 Patient name: Bakari Smith Date of test: 02/26/2024 Hospital #: 0 Location: [facility] Interpreted by: Kip Pena M.D. Ph.D. Uptwist Spinner: Lainey Oh RDCS RN: Hilda Monk RN Reason for Test: pre-kidney transplant evaluation Study quality: Technically good Referring Physician: TONYA HAMMONDS MD Contrast Agent: 0.45 ml Definity Administered, (1.05 ml wasted). BASELINE STUDY: Wall Motion Scoring (1=Normal 2=Hypo 3=Akinetic 4=Dyskin./Aneurysm 0=Not visualized) Parasternal Long [place]:MAS=1 BAS=1 MIL=1 RENATO=1 Parasternal Short [place]:MAS=1 MIS=1 VT=1 MIL=1 MAL=1 MA=1 Apical 4 Chambers:=1 MIS=1 BIS=1 BAL=1 MAL=1 AL=1 AC=1 Apical 2 Chambers:AI=1 VT=1 BI=1 BA=1 MA=1 AA=1 AC=1 Ejection Fraction: [...] 2=Hypo 3=Akinetic 4=Dyskin./Aneurysm 0=Not visualized) Parasternal Long [place]:MAS=1 BAS=1 MIL=1 RENATO=1 Parasternal Short [place]:MAS=1 MIS=1 VT=1 MIL=1 MAL=1 MA=1 Apical 4 Chambers:=1 MIS=1 BIS=1 BAL=1 MAL=1 AL=1 AC=1 Apical 2 Chambers:AI=1 VT=1 BI=1 BA=1 MA=1 AA=1 AC=1 Intravenous dobutamine [...] Ph.D. By signing this report, the attending washer assembler certifies that he or she has personally supervised and interpreted the echocardiogram and has reviewed and or edited and agrees with the written comments contained within the report. Tonya Hammonds MD CV ECHO PROCEDURES Final Result * HLA Antibody Screen by PRA or SAB per Schedule (Class I and Class II) (02/26/2024 10:00 AM MORTGAGE CONSULTANT) Blood 02/26/2024 10:0 0 AM MORTGAGE CONSULTANT Narrative HISTOTRAC - MORTGAGE CONSULTANT Sample received in lab and stored. No testing performed at this time. us Bashir Alston MD LAB BLOOD ORDERABLES Final R esult [facility]OT[facility] * (ABNORMAL) eGFR (02/16/2024 11:34 AM MORTGAGE CONSULTANT) eGFR 4(L) >=60 mL/min/1. 73 m2 Comment: [...] reviewed 2020. Blood 02/16/2024 11:3 4 AM MORTGAGE CONSULTANT 02/16/2024 12:02 PM MORTGAGE CONSULTANT us Tonya Hammonds MD LAB BLOOD ORDERABLE S Final Result [facility] Department [place] [address] * Differential, auto (02/16/2024 11:34 AM MORTGAGE CONSULTANT) Neutrophil abs 5.1 1.5 - 6.5 K/cumm Imm gran abs 0.1 0.0 - 0.1 K/cumm [facility] Lymphocyte abs 2.0 0.8 - 3.3 K/cumm [facility] Monocyte abs 0.6 0.2 - 0.8 K/cumm [facility] Eosinophil abs 0.1 0.0 - 0.5 K/cumm [facility] Basophil abs 0.0 0.0 - 0.1 K/cumm [facility] Neutrophil pct 64.7 % [facility] Comment: Interpretive Data Percent cell count reference ranges are not reported, since discordance with absolute values may lead to misinterpretation of CBC data. Current Interpretive Data was last revised on 2017. Imm gran pct 0.6 % [facility] Comment: Interpretive Data Percent cell count reference ranges are not reported, since discordance with absolute values may lead to misinterpretation of CBC data. Current Interpretive Data was last revised on 2017. Lymphocyte pct 25.3 % [facility] Comment: Interpretive Data Percent cell count reference ranges are not reported, since discordance with absolute values may lead to misinterpretation of CBC data. Current Interpretive Data was last revised on 2017. Monocyte pct 7.3 % [facility] Comment: Interpretive Data Percent cell count reference ranges are not reported, since discordance with absolute values may lead to misinterpretation of CBC data. Current Interpretive Data was last revised on 2017. Eosinophil pct 1.8 % [facility] Comment: Interpretive Data Percent cell count reference ranges are not reported, since discordance with absolute values may lead to misinterpretation of CBC data. Current Interpretive Data was last revised on 2017. Basophil pct 0.3 % [facility] Comment: Interpretive Data Percent cell count reference ranges are not reported, since discordance with absolute values may lead to misinterpretation of CBC data. Current Interpretive Data was last revised on 2017. Blood 02/16/2024 11:3 4 AM MORTGAGE CONSULTANT 02/16/2024 11:45 AM MORTGAGE CONSULTANT us Tonya Hammonds MD LAB BLOOD ORDERABLE S Final Result Performing Organization Address City/[facility] Co de Phone Number [facility] Department [place] [address] * HIV 1/2 Antibody plus p24 Antigen Blood (02/16/2024 11:34 AM MORTGAGE CONSULTANT) HIV 1/2 ab + p24 ag Nonreactive Nonreactive Comment:Nonreactive for HIV- 1 antigen and HIV-1/HIV-2 antibodies. No laboratory evidence of HIV infection. If acute HIV infection is suspected, consider testing for HIV-1 RNA. Current interpretive data was last revised on 21. Blood 02/16/2024 11:3 4 AM MORTGAGE CONSULTANT 02/16/2024 11:45 AM MORTGAGE CONSULTANT Tonya Hammonds MD LAB MICROBIOLOGY - GENERAL ORDERABLES Final Result Performing Organization Address City/[facility]/ZIP Co de Phone Number [facility] Department [place] [address] * (ABNORMAL) CBC with auto differential (02/16/2024 11:34 AM MORTGAGE CONSULTANT) [facility] WBC 7.8 3.8 - 9.9 K/cumm Hgb 8.6(L) 11.9 - 15.5 g/dL [facility] Hct 28.3(L) 35.6 - 45.5 % [facility] Plt 265 150 - 400 K/cumm [facility] MPV 10.2 9.1 - 12.3 fL [facility] RBC 3.24(L) 3.90 - 5.20 M/cumm [facility] MCV 87.3 81.3 - 96.4 fL [facility] MCH 26.5(L) 27.1 - 33.3 pg [facility] MCHC 30.4(L) 32.3 - 35.7 g/dL [facility] RDW CV 14.9 11.1 - 14.9 % [facility] RDW SD 48.1 35.7 - 48.1 fL [facility] NRBC abs 0.00 0.00 - 0.01 K/cumm [facility] Blood 02/16/2024 11:3 4 AM MORTGAGE CONSULTANT 02/16/2024 11:45 AM MORTGAGE CONSULTANT Tonya Hammonds MD LAB BLOOD ORDERABLE S Final Result [facility] [place] [address] * Hepatitis C antibody Blood (02/16/2024 11:34 AM MORTGAGE CONSULTANT) [facility] Hep C Ab Nonreactive Nonreactive Comment:Antibodies to HCV no t detected. Does NOT exclude the possibility of recent exposure to HCV. Current interpretive data was last revised on 21 Blood 02/16/2024 11:3 4 AM MORTGAGE CONSULTANT 02/16/2024 11:45 AM MORTGAGE CONSULTANT us Tonya Hammonds MD LAB MICROBIOLOGY - GENERAL ORDERABLES Final Result [facility] [place] [address] * Hepatitis B core antibody, total Blood (02/16/2024 11:34 AM MORTGAGE CONSULTANT) Hep B core IgG/IgM Nonreactive Nonreactive Blood 02/16/2024 11:3 4 AM MORTGAGE CONSULTANT 02/16/2024 11:45 AM MORTGAGE CONSULTANT Tonya Hammonds MD LAB MICROBIOLOGY - GENERAL ORDERABLES Final Result Performing Organization Address [facility] Co de Phone Number [facility] [place] [address] * Hepatitis B surface antibody (immune status) Blood (02/16/2024 11:34 AM MORTGAGE CONSULTANT) HBsAb (immune status) Reactive Comment:This result is consi stent with immunity to Hepatitis B Virus when used in the setting of routine screening. Current interpretive data was last revised on 21 HBsAb (immune status) index 221.0 mIUnits/m L [facility] Blood 02/16/2024 11:3 4 AM MORTGAGE CONSULTANT 02/16/2024 11:45 AM MORTGAGE CONSULTANT us Tonya Hammonds MD LAB MICROBIOLOGY - GENERAL ORDERABLES Final Result Performing Organization Address City/[facility] Co de Phone Number [facility] [place] [address] * Hepatitis B Surface Antigen Blood (02/16/2024 11:34 AM MORTGAGE CONSULTANT) HepBsAg Nonreactive Nonreactive Blood 02/16/2024 11:3 4 AM MORTGAGE CONSULTANT 02/16/2024 11:45 AM MORTGAGE CONSULTANT Tonya Hammonds MD LAB MICROBIOLOGY - GENERAL ORDERABLES Final Result Performing Organization Address City/[facility] Co de Phone Number [facility] [place] [address] * (ABNORMAL) Phosphorus (02/16/2024 11:34 AM MORTGAGE CONSULTANT) Phosphorus, pl 5.6(H) 2.3 - 4.5 mg/dL Blood 02/16/2024 11:3 4 AM MORTGAGE CONSULTANT 02/16/2024 11:45 AM MORTGAGE CONSULTANT Tonya Hammonds MD LAB BLOOD ORDERABLE S Final Result Performing Organization Address [facility] Co de Phone Number [facility] [place] [address] * (ABNORMAL) PTH (02/16/2024 11:34 AM MORTGAGE CONSULTANT) PTH 335(H) 15 - 65 pg/mL Blood 02/16/2024 11:3 4 AM MORTGAGE CONSULTANT 02/16/2024 11:45 AM MORTGAGE CONSULTANT Tonya Hammonds MD LAB BLOOD ORDERABLE S Final Result Performing Organization Address [facility] Co de Phone Number [facility] Department [place] [address] * (ABNORMAL) Hemoglobin A1c (02/16/2024 11:34 AM MORTGAGE CONSULTANT) Hgb A1C 6.2(H) 4.0 - 5.6 % Estimated Average Glucose 131 mg/dL [facility] Comment: The ADA recommends reporting an estimated Average Glucose (eAG) with all Hemoglobin A1c results using the equation derived from a study of 507 normal and diabetic adults. Minority populations were underrepresented and children were not included. (Diabetes Care 2020; 43(S1): S66-S76). The eAG is not equivalent to a fasting glucose. Blood 02/16/2024 11:3 4 AM MORTGAGE CONSULTANT 02/16/2024 11:45 AM MORTGAGE CONSULTANT us Tonya Hammonds MD LAB BLOOD ORDERABLE S Final Result [facility] H[facility]PITAL [facility] Department [place] [address] * (ABNORMAL) Comprehensive metabolic panel (02/16/2024 11:34 AM MORTGAGE CONSULTANT) Sodium 140 135 - 145 mmol/L Potassium, pl 4.4 3.3 - 4.9 mmol/L [facility] Chloride 102 97 - 110 mmol/L [facility] CO2 28 22 - 32 mmol/L [facility] Anion gap 10 2 - 15 mmol/L [facility] BUN 46(H) 6 - 25 mg/dL [facility] Creatinine 10.77(H) 0.60 - 1.10 mg/dL [facility] Glucose 223(H) 70 - 199 mg/dL [facility] Comment: Interpretive Data Fasting glucose >/= [...] 2022. Calcium 8.8 8.5 - 10.3 mg/dL [facility] Bilirubin, total 0.2 0.1 - 1.2 mg/dL [facility] Protein, pl 6.8 6.5 - 8.5 g/dL [facility] Albumin 3.1(L) 3.5 - 5.0 g/dL [facility] Alk phos 233(H) 40 - 130 Units/L [facility] ALT 57(H) 7 - 45 Units/L [facility] AST 50(H) 10 - 45 Units/L [facility] Blood 02/16/2024 11:3 4 AM MORTGAGE CONSULTANT 02/16/2024 11:45 AM MORTGAGE CONSULTANT us Tonya Hammonds MD LAB BLOOD ORDERABLE S Final Result Performing Organization Address City/[facility]/ZIP Co de Phone Number [facility] Department [place] [address] * HLA Antibody Screen by PRA or SAB per Schedule (Class I and Class II) (01/26/2024 10:00 AM MORTGAGE CONSULTANT) Blood 01/26/2024 10:0 0 AM MORTGAGE CONSULTANT Narrative [facility] - MORTGAGE CONSULTANT Sample received in lab. Single Antigen Antibody Screen ordered. us Bashir Alston MD LAB BLOOD ORDERABLES Final R esult Performing Organization Address City/[facility] Co de Phone Number [facility] * HLA Antibody Screen - SAB (Class I and Class II) (01/26/2024 10:00 AM MORTGAGE CONSULTANT) Class I Treatment EDTA [facility] Class I [...] per SSO. [facility] 01/26/2024 10:0 0 AM MORTGAGE CONSULTANT 01/29/2024 1:28 PM MORTGAGE CONSULTANT Narrative [facility] - 01/29/2024 1:28 PM MORTGAGE CONSULTANT Single-antigen HLA antibody screen is performed on serum samples using a method developed and validated by the [facility] HLA laboratory based on an FDA-approved IVD kit (LABScreen Single-Antigen, [employer], [place], [place]). All patient serum samples are pretreated with EDTA before the screen to prevent complement interference. Additional serum treatments, such as adsorption and DTT treatment, may be performed as indicated. Interpretive comments: Low risk: MFI [id number]. Moderate risk: MFI [id number]. Increased risk: MFI >/= 5000. The presence [...] to avoid. Testing performed at the [facility], [address] [place] [address], 5th floor, [place], [address]. [facility] # [id number]. Amber Berry, Ph.D., Awning Assembler, HLA Laboratory Jonathan Brennan M.D., Ph.D., Lacquer Sizer, HLA Laboratory Rehana Alarcon, Ph.D., CLIA Lacquer Sizer, [facility] Current methodology and interpretive comments last revised on 03/20/2022. us Bashir Alston MD LAB BLOOD ORDERABLES Final R esult Performing Organization Address City/[facility] Co de Phone Number [facility] * POCT glucose (01/08/2024 9:44 AM MORTGAGE CONSULTANT) Pathologist [facility] Glucose, POC 97 70 - 199 mg/dL Blood 01/08/2024 9:44 AM MORTGAGE CONSULTANT 01/08/2024 9:44 AM MORTGAGE CONSULTANT Brandan Orr MD LAB POCT ORDERABLES - DEV ICE Final Result Performing Organization Address [facility] Co de Phone Number [facility] Department [place] [address] * (ABNORMAL) Troponin I high-sensitivity 4-hour (01/08/2024 7:44 AM MORTGAGE CONSULTANT) Trop I hs 131(H) <=17 ng/L Comment: Interpretive Data For further hscTnI resources including the diagnostic algorithm and an aid in interpretation, copy and paste this link: https://bjhlab.testcatalog.org/show/hsTrop-1 Current Interpretive Data last revised 2019. Trop I hs pct delta 8 % [facility] Trop I hs interp Equivocal [facility] Blood 01/08/2024 7:44 AM MORTGAGE CONSULTANT 01/08/2024 7:53 AM MORTGAGE CONSULTANT us Stacey Thomas MD LAB BLOOD ORDERABLES Final Result Performing Organization Address [facility] de Phone Number [facility] [place] [address] * POCT glucose (01/08/2024 7:43 AM MORTGAGE CONSULTANT) Glucose, POC 92 70 - 199 mg/dL Blood 01/08/2024 7:43 AM MORTGAGE CONSULTANT 01/08/2024 7:43 AM MORTGAGE CONSULTANT us Brandan Orr MD LAB POCT ORDERABLES - DEV ICE Final Result Performing Organization Address [facility] de Phone Number [facility] [place] [address] * POCT glucose (01/08/2024 5:48 AM MORTGAGE CONSULTANT) Glucose, POC 109 70 - 199 mg/dL Blood 01/08/2024 5:48 AM MORTGAGE CONSULTANT 01/08/2024 5:48 AM MORTGAGE CONSULTANT us Amauri Greene MD PhD LAB POCT ORDERABLES - DEVICE Final Result Performing Organization Address [facility] de Phone Number [facility] [place] [address] * (ABNORMAL) Troponin I high-sensitivity 2-hour (01/08/2024 5:47 AM MORTGAGE CONSULTANT) Trop I hs 140(H) <=17 ng/L Comment: reviewed Interpretive Data For further hscTnI resources including the diagnostic algorithm and an aid in interpretation, copy and paste this link: https://bjhlab.testcatalog.org/show/hsTrop-1 Current Interpretive Data last revised 2019. Trop I hs pct delta 16(C) % [facility] Comment:reviewed Trop I hs interp Significa nt(C) [facility] Comment:reviewed Blood 01/08/2024 5:47 AM MORTGAGE CONSULTANT 01/08/2024 5:53 AM MORTGAGE CONSULTANT Stacey Thomas MD LAB BLOOD ORDERABLES Final Result Performing Organization Address [facility] de Phone Number [facility] [place] [address] * Critical result callback Cardio chemistry (01/08/2024 5:47 AM MORTGAGE CONSULTANT) Date Notified [id number] Time Notified 625 [facility] Test name Trop I hs 2hr p [facility] Called/Read Back Corni [facility] Credentials MD [facility] Called By SHAWN [facility] Blood 01/08/2024 5:47 AM MORTGAGE CONSULTANT 01/08/2024 5:53 AM MORTGAGE CONSULTANT Stacey Thomas MD LAB BLOOD ORDERABLES Final Result Performing Organization Address [facility] de Phone Number [facility] [place] [address] * (ABNORMAL) Troponin I high-sensitivity series (baseline, 2hr, 4hr, 6hr) (01/08/2024 3:39 AM MORTGAGE CONSULTANT) Trop I hs 121(H) <=17 ng/L Comment: Interpretive Data For further hscTnI resources including the diagnostic algorithm and an aid in interpretation, copy and paste this link: https://bjhlab.testcatApostrophe Apps.org/show/hsTrop-1 Current Interpretive Data last revised 2019. Blood 01/08/2024 3:39 AM MORTGAGE CONSULTANT 01/08/2024 3:46 AM MORTGAGE CONSULTANT us Amauri Greene MD PhD LAB BLOOD ORDERABLE S Final Result Performing Organization Address [facility] Co de Phone Number [facility] Department [place] [address] * (ABNORMAL) eGFR (01/08/2024 3:39 AM MORTGAGE CONSULTANT) eGFR 3(L) >=60 mL/min/1. 73 m2 Comment: [...] last reviewed 2020. Blood 01/08/2024 3:39 AM MORTGAGE CONSULTANT 01/08/2024 3:46 AM MORTGAGE CONSULTANT us Stacey Thomas MD LAB BLOOD ORDERABLES Final Result Performing Organization Address City/[facility]/ZIP Co de Phone Number [facility] Department [place] [address] * (ABNORMAL) Differential, auto (01/08/2024 3:39 AM MORTGAGE CONSULTANT) Neutrophil abs 7.0(H) 1.5 - 6.5 K/cumm Imm gran abs 0.1 0.0 - 0.1 K/cumm [facility] Lymphocyte abs 2.2 0.8 - 3.3 K/cumm [facility] Monocyte abs 1.0(H) 0.2 - 0.8 K/cumm [facility] Eosinophil abs 0.2 0.0 - 0.5 K/cumm [facility] Basophil abs 0.1 0.0 - 0.1 K/cumm [facility] Neutrophil pct 66.7 % [facility] Comment: Interpretive Data Percent cell count reference ranges are not reported, since discordance with absolute values may lead to misinterpretation of CBC data. Current Interpretive Data was last revised on 2017. Imm gran pct 1.2 % [facility] Comment: Interpretive Data Percent cell count reference ranges are not reported, since discordance with absolute values may lead to misinterpretation of CBC data. Current Interpretive Data was last revised on 2017. Lymphocyte pct 20.4 % [facility] Comment: Interpretive Data Percent cell count reference ranges are not reported, since discordance with absolute values may lead to misinterpretation of CBC data. Current Interpretive Data was last revised on 2017. Monocyte pct 9.0 % [facility] Comment: Interpretive Data Percent cell count reference ranges are not reported, since discordance with absolute values may lead to misinterpretation of CBC data. Current Interpretive Data was last revised on 2017. Eosinophil pct 1.7 % [facility] Comment: Interpretive Data Percent cell count reference ranges are not reported, since discordance with absolute values may lead to misinterpretation of CBC data. Current Interpretive Data was last revised on 2017. Basophil pct 1.0 % [facility] Comment: Interpretive Data Percent cell count reference ranges are not reported, since discordance with absolute values may lead to misinterpretation of CBC data. Current Interpretive Data was last revised on 2017. Blood 01/08/2024 3:39 AM MORTGAGE CONSULTANT 01/08/2024 4:20 AM MORTGAGE CONSULTANT us Stacey Thomas MD LAB BLOOD ORDERABLES Final Result [facility] Department [place] [address] * (ABNORMAL) CBC with auto differential (01/08/2024 3:39 AM MORTGAGE CONSULTANT) [facility] WBC 10.6(H) 3.8 - 9.9 K/cumm Hgb 9.3(L) 11.9 - 15.5 g/dL [facility] Hct 29.7(L) 35.6 - 45.5 % [facility] Plt 205 150 - 400 K/cumm [facility] MPV 10.6 9.1 - 12.3 fL [facility] RBC 3.44(L) 3.90 - 5.20 M/cumm [facility] MCV 86.3 81.3 - 96.4 fL [facility] MCH 27.0(L) 27.1 - 33.3 pg [facility] MCHC 31.3(L) 32.3 - 35.7 g/dL [facility] RDW CV 14.5 11.1 - 14.9 % [facility] RDW SD 45.1 35.7 - 48.1 fL [facility] NRBC abs 0.00 0.00 - 0.01 K/cumm [facility] Blood 01/08/2024 3:39 AM MORTGAGE CONSULTANT 01/08/2024 4:20 AM MORTGAGE CONSULTANT us Amauri Greene MD PhD LAB BLOOD ORDERABLE S Final Result [facility] Department [place] [address] * (ABNORMAL) Comprehensive metabolic panel (01/08/2024 3:39 AM MORTGAGE CONSULTANT) [facility] Sodium 139 135 - 145 mmol/L Potassium, pl 4.8 3.3 - 4.9 mmol/L [facility] Chloride 101 97 - 110 mmol/L [facility] CO2 23 22 - 32 mmol/L [facility] Anion gap 15 2 - 15 mmol/L [facility] BUN 67(H) 6 - 25 mg/dL [facility] Creatinine 13.73(H) 0.60 - 1.10 mg/dL [facility] Glucose 138 70 - 199 mg/dL [facility] Comment: Interpretive Data Fasting glucose >/= [...] Calcium 9.7 8.5 - 10.3 mg/dL [facility] Bilirubin, total 0.2 0.1 - 1.2 mg/dL [facility] Protein, pl 7.5 6.5 - 8.5 g/dL [facility] Albumin 3.2(L) 3.5 - 5.0 g/dL [facility] Alk phos 179(H) 40 - 130 Units/L [facility] ALT 40 7 - 45 Units/L [facility] AST 45 10 - 45 Units/L [facility] Blood 01/08/2024 3:39 AM MORTGAGE CONSULTANT 01/08/2024 3:46 AM MORTGAGE CONSULTANT us Amauri Greene MD PhD LAB BLOOD ORDERABLE S Final Result [facility] Department [place] [address] * XR Chest PA Lateral 2 Views (01/07/2024 10:56 PM MORTGAGE CONSULTANT) Anatomical Region Laterality Modality Body, Chest N/A Computed Radiogr aphy 01/08/2024 12:1 0 AM MORTGAGE CONSULTANT Impressions 01/08/2024 8:52 AM MORTGAGE CONSULTANT The current study is compared with the [...] Nick Miles M.D. Narrative 01/08/2024 8:52 AM MORTGAGE CONSULTANT EXAMINATION: 2 view chest radiograph Procedure Note [...] Result * ECG 12-LEAD (01/07/2024 10:21 PM MORTGAGE CONSULTANT) Narrative [facility] - 01/07/2024 10:21 PM MORTGAGE CONSULTANT Stacey Thomas MD 01/07/2024 10:23 PM ECG [...] ORDERABLES Fin al Result Performing Organization Address City/[facility] Co de Phone Number [facility] * (ABNORMAL) POCT glucose (01/07/2024 10:21 PM MORTGAGE CONSULTANT) Glucose, POC 200(H) 70 - 199 mg/dL Blood 01/07/2024 10:2 1 PM MORTGAGE CONSULTANT 01/07/2024 10:21 PM MORTGAGE CONSULTANT us Notinfile Unknown LAB POCT ORDERABLES - DEVICE F inal Result Performing Organization Address [facility] Co de Phone Number [facility] Department [place] [address] * Colonoscopy (07/21/2023 10:23 AM CDT) Anatomical Region Laterality Modality Other Narrative Procedure Note Early, Haritha Coronado MD - 07/21/2023 10:23 AM CDT [facility] Patient Name: Bakari Smith Procedure Date: 07/21/2023 10:23 AM Date of : 1980 Admit Type: Outpatient Age: 43 Gender: Female Attending MD: Haritha Stover M.D. Room: [facility] ENDOSCOPY ROOM 02 Note Status: Finalized [...] The scope was passed under direct vision.The [id number] Colonoscope was introducedthrough the anus and advanced to the the cecum, identifiedby appendiceal orifice and ileocecal valve. The colonoscopy was performed without difficulty. The patient tolerated the procedure well. The qualityof the bowel preparation was evaluated using the BBPS ([place] Bowel Preparation Scale) with scores of:Right Colon [...] On: 07/21/2023 10:23 AM Recognized by the [employer] for promoting quality in endoscopy Haritha Stover MD ENDOSCOPY PROCEDURES Final Res ult * HM MAMMOGRAPHY (06/04/2021) Impressions Rashida Schneider - 06/04/2021 IMPRESSION: 1. Benign mammogram. READ BY: NINO BAJWA MD 06/05/2021 Historical Provider HEALTH MAINTENANCE Final Result * Lipid panel (04/30/2021 12:22 PM MORTGAGE CONSULTANT) Cholesterol 139 30 - 199 mg/dL [facility] Comment: Interpretive Data Ages < [...] revised on 2017. Triglycerides 64 <=149 mg/dL [facility] Comment: Interpretive Data Ages < [...] on 2017. HDL 70 >=40 mg/dL [facility] Comment: Interpretive Data Ages < [...] on 2017. LDL, calculated 56 <=129 mg/dL [facility] Comment: Interpretive Data Ages < or [...] on 2017. Non-HDL Cholesterol 69 mg/dL [facility] Comment: Interpretive Data Ages < [...] revised on 2017. Chol/HDL ratio 2 [facility] Blood 04/30/2021 12:2 2 PM MORTGAGE CONSULTANT 04/30/2021 1:03 PM MORTGAGE CONSULTANT us Ren Pelayo MD LAB BLOOD ORDERABLES Final Result [facility] Department [place] [address] from Last 3 Months or Most Recently Relevant to Health Maintenance Insurance [employer] [facility] IDPA MEDICARE MEDICARE MEDICARE MEDICARE Advance Directives For more information, please contact: [phone] * Full Code (Latest Code Status on File) Date Activated Date Inactivated Comments 07/21/2023 9:59 AM 07/21/2023 3:56 PM Care Teams Bottle Capper Relationship Specialty Start Date End Date No, Physician PCP - General 02/16/24 Almita Rizzo, RN [address] [facility] [address] [place] [address] Insole Cementer 04/04/21 Beth Fernandez MD [address] [place] [address] Referring Physician Nephrology 04/04/21 Maday Oviedo MD [address] [place] [address] Neurology 09/12/22 Tomasz Scott DO [address] [place] [address] Tube Puller Cardiology 09/16/22
--- OUTSIDE RECORDS SUMMARY | 2024-04-04 12:33 | XMS_ITS | CONTINUITY OF CARE DOCUMENT ---
Author Name juany harrington Address Unknown Organization [facility] Address [address] [place] [address] [address] [place] [address] Phone [phone] Care Team Providers Care Energy Advisor Name Role Phone Christoph Guerra MD Unavailable [phone] ANNITA WALTER MD Unavailable [phone] ANNITA WALTER MD Unavailable [phone] PROBLEMS Condition Status Date Provider Notes Hyperlipidemia active Christoph Guerra MD Shortness of breath active Christoph Gonzalez Restless leg syndrome active Christoph Guerra MD Diabetic autonomic neuropathy active Christoph Guerra MD Diabetes mellitus, type 2 active Christoph greer MD HTN essential active Christoph Guerra MD ESRD on PD active Christoph Guerra MD Cardiology examination active Christoph ramirez MD ENCOUNTERS Date Type Provider Location Encounter Diag nosis - In-person encounter Office Visit Christoph Guerra MD [place] [facility] Cardiology examinationESRD on PDHTN essentialDiabetes mellitus, [...] Payer name Policy type / Coverage type [place] red libertarian ID [place] MEDICARE Medicare [id number] ADVANCE DIRECTIVES Name Date DISCUSSED - NO [...] a day Christoph Guerra MD Cardiology Christoph Gnozalez Date Name TSH, 3RD GENERATION W/REFLEX TO FT4 [facility] Advanced Li pid Panel with Inflammation ([facility]) myocardial blood jason w (PET) Stress Cardiac PET-C T Complete Echo HISTORY OF PROCEDURES Procedure Date Procedure Name Provider Procedure Notes S tatus EKG Christoph Guerra MD [ 4 - tracyvandoren] completed
--- NOTE | 2024-04-04 13:08 | ED_ITS ---
HPI - Extremity Problem General Chief complaint: Extremity Problem,Nontraumatic Stated complaint: L arm pain Time Seen by Provider: 04/04/24 12:06 History of Present Illness HPI Narrative: 44-year-old female with a past medical history including end-stage renal disease currently on peritoneal dialysis. She has a history of hypertension, diabetes, GERD. She has a left upper extremity AV graft that is nonfunctioning, has never been accessed. She states she has remote history of an upper extremity DVT but is not sure what provoked it but was told that she did not have 1 on repeat scan is not present any got blood thinner medications. Patient denies any trauma or injuries but presents today to the emergency room with complaint of left upper extremity shoulder pain radiating towards her neck. She states that she has tried Tylenol and ibuprofen at home without any relief of her symptoms, symptoms started yesterday without any trauma or injury. Did not sleep on her arm wrong. She states she is having vague myalgias in her left shoulder left upper extremity, left neck and also into her right clavicle. Denies any chest discomfort, chest pain or pressure. No shortness of breath, nausea, vomiting, vision changes diarrhea, abdominal pain. Was otherwise in her normal state of health, has been utilizing her dialysis without issue. Related Data Home Medications ?Medication ?Instructions ?Recorded ?Confirmed ?Last Taken ?Type amlodipine 5 mg tablet 5 mg PO DAILY 12/30/23 04/01/24 03/31/24 History atorvastatin 20 mg tablet 20 mg PO DAILY 12/30/23 04/01/24 03/31/24 History sevelamer carbonate 800 mg tablet 1,600 mg PO TIDWM 01/06/24 04/01/24 03/31/24 History cholecalciferol (vitamin D3) 125 5,000 unit PO DAILY 03/07/24 04/01/24 03/28/24 History mcg (5,000 unit) tablet (Vitamin D3) hydralazine 100 mg tablet 100 mg PO Q12H 03/07/24 04/01/24 03/31/24 History labetalol 200 mg tablet 200 mg PO Q12H 03/22/24 04/01/24 04/01/24 04:00 History Allergies Allergy/AdvReac Type Severity Reaction Status Date / Time metronidazole Allergy Intermediate Rash Verified 04/04/24 10:05 omeprazole Allergy Intermediate Rash Verified 04/04/24 10:05 Review of Systems 2 Review of Systems: As reviewed above in HPI [facility] Past Medical History Medical History Peritoneal dialysis catheter in place Requires peritoneal dialysis ESRD (end stage renal disease) Obesity (BMI 30-39.9) Dysphagia, oropharyngeal Morbid obesity Chronic kidney disease, stage 5 Pyuria Erythropoietin deficiency anemia Gastroesophageal reflux Arthritis Right wrist left knee Irritable bowel syndrome Diverticulitis Pneumonia Peripheral neuropathy Diabetes Hypertension Surgical History Surgical History Hx of cholecystectomy History of salpingo-oophorectomy Delivery by section X3 History of tubal ligation Hx of appendectomy Family History Family History Mother Diabetes mellitus Breast cancer Sibling History of blood clots due to blood clot Heart disease Sister has something wrong with her heart Father Hypertension Prostate carcinoma Daughter , 06/08/2021, 19yo Pulmonary embolism Social History Social History Social History: She has 3 children, 1 . She is single. Her oldest daughter is a durable power workers compensation attorney for healthcare. The patient desires to be a full code. Patient stated that she has 5 grandchildren and watches her granddaughter most of the time. Code status full code Smoking status: Never smoker Second hand tobacco smoke exposure: Yes Alcohol intake: never Substance use: never Substance use type: does not use Do You Feel Safe in your Home?: Yes Lack of Transportation: No Lack of Food: Never True Current Housing: I Have Housing Concerned About Future Housing: No Difficulty Paying Gas/Electric Bills: No Difficulty Paying for Meds: No Currently Unemployed: No Education: High School Diploma/GED Difficulty w/ Childcare or Family Care: No Living arrangements: with family Additional living arrangements comments: with son Occupation/Education: other Additional occupation/education comments: disabled, 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 Mucous membranes moist. NECK: Supple. CHEST: [Clear to auscultation. No respiratory distress.] HEART: [Regular rate and rhythm]. No murmur heard. 2+ symmetric radial pulses, warm extremities with symmetric perfusion. ABDOMEN: [Soft, nondistended], [nontender], [No rigidity or guarding] EXTREMITIES: Normal range of motion. No edema in the bilateral upper or lower extremities, left upper extremity has a palpable AV graft with no overlying skin changes, redness or tenderness to palpation. Full range of motion of left shoulder. No tenderness over the lateral AC joint or clavicle. Pain is not reproduced in any particular movement of the shoulder. SKIN: Warm, dry, no rash. NEURO: [No focal deficits]. Alert and oriented [x3.] PSYCH: [Normal mood and affect.] Course Vital Signs Vital signs: Vital Signs Temperature 36.6 C 04/04/24 10:00 Pulse Rate 76 04/04/24 10:00 Respiratory Rate 16 04/04/24 10:00 Blood Pressure 182/87 H 04/04/24 10:00 Pulse Oximetry 100 04/04/24 10:00 Oxygen Delivery Room Air 04/04/24 10:00 Temperature 36.6 C 04/04/24 15:08 Pulse Rate 77 04/04/24 15:08 Respiratory Rate 16 04/04/24 15:08 Blood Pressure 225/100 H 04/04/24 15:08 Pulse Oximetry 99 04/04/24 15:08 Oxygen Delivery Room Air 04/04/24 10:00 MDM - Extremity (Nontraumatic) MDM Narrative Medical decision making narrative: 44-year-old female history of peritoneal dialysis, hypertension, diabetes. She presents with left upper extremity pain in her left upper arm and the shoulder radiating towards her jaw. Denies any chest pain or chest discomfort/pressure. No shortness of breath. No nausea or vomiting. Denies any injury or trauma. She has a left AV graft is nonfunctional, not being used and has never been used for dialysis. She is otherwise in her normal state of health. She has hypertensive but no tachycardia, fever, hypoxia blood pressure concerns. Considerations presently for potential musculoskeletal strain, shoulder impingement, blood clot in the left upper extremity, ACS less likely, pneumothorax and pneumonia less likely. Given her age and risk factors a cardiac workup including CBC, BMP, troponin, EKG and chest x-ray obtained. Shoulder x-ray and she was given Toradol for analgesia as she is already on end- stage dialysis. Left upper extremity DVT ultrasound obtained. Patient was given a dose of her morning home blood pressure medications that she did not get while she was here in the ED. workup shows no leukocytosis or anemia worse than baseline. Normal platelet count. Electrolytes show a minor hyperkalemia 5.2 but no EKG evidence of change. Creatinine and BUN at her normal renal dysfunction. Normal glucose. Normal LFTs. Negative troponin. Negative COVID flu and RSV panel. Chest x-ray without any focal infiltrates or effusions. DVT ultrasound showed no evidence of a deep venous thrombosis, there is a chronically thrombosed dialysis graft which she is already aware of. Patient does not use this. Shoulder x-ray shows no acute fractures or dislocation. Patient had some symptomatic improvement here and overall unremarkable workup. She is safe and stable for discharge home with regular outpatient primary care provider follow-up. Lab Data 04/04/24 14:42 04/04/24 14:42 Labs: Lab Results 04/04/24 04/04/24 Range/Units 14:42 14:45 WBC 7.0 (4.5-10.0) K/mm3 RBC 4.10 L (4.2-5.4) M/mm3 Hgb 10.8 L (12.0-15.0) g/dL Hct 34.2 L (37.0-47.0) % MCV 83.4 (80-100) fl MCH 26.3 (26-34) pg MCHC 31.6 L (32-36) g/dl RDW 15.5 H (11.5-14.5) % Plt Count 252 (150-375) k/mm3 MPV 9.7 (7.4-10.4) fl Immature Gran % (Auto) 0.4 (0-0.5) % Neut % (Auto) 47.3 (45.5-73.1) % Lymph % (Auto) 38.5 (18.3-44.2) % Davis % (Auto) 5.9 (2.6-8.5) % Eos % (Auto) 6.9 H (0-4.4) % Baso % (Auto) 1.0 (0.2-1.2) % Lymph # (Auto) 2.68 (0.9-3.2) K/mm3 Davis # (Auto) 0.4 (0.1-0.6) K/mm3 Eos # (Auto) 0.5 H (0-0.3) K/mm3 Baso # (Auto) 0.1 (0.0-0.1) K/mm3 Abs Immat Gran (auto) 0.03 (0.00-0.031) K/mm3 Absolute Neuts (auto) 3.3 (1.3-6.7) K/mm3 Absolute Nucleated RBC 0.000 (0.0-0.012) K/mm3 Nucleated RBC % 0.0 (0.0-0.2) % PT Pending INR Pending APTT Pending Sodium 139 (137-145) mmol/L Potassium 5.2 H (3.4-5.0) mmol/L Chloride 105 (98-107) mmol/L Carbon Dioxide 22 (22-30) mmol/L Anion Gap 12 (4-12) mmol/L BUN 60 H (7-17) mg/dL Creatinine 13.43 H (0.7-1.0) mg/dL Estim Creat Clear Calc 5 ml/min Estimated GFR 4 L (59 - ) Glucose 76 (65-110) mg/dL Calcium 9.1 (8.4-10.2) mg/dL Troponin I < 0.012 (0.000-0.034) ng/mL Influenza A (RT-PCR) Negative (Negative) Influenza B (RT-PCR) Negative (Negative) RSV (RT-PCR) Negative (Negative) SARS-CoV-2 RNA (RT-PCR) Negative (Negative) Discharge Plan Discharge Clinical Impression: Left upper arm pain, Peritoneal dialysis status, Arteriovenous shunt thrombosis Patient Disposition: Home, Self-Care Condition: Stable Instructions: Antibiotic Form Additional Instructions: Your Doppler ultrasound and x-rays were all negative for any deep venous thrombosis or acute osseous process such as fractures or dislocation. Your cardiac workup was unremarkable. You have some minor elevation potassium which can be taking care of during her normal dialysis session tonight. Return if you develop any chest pain, shortness a breath, weakness, nausea, vomiting or any other concerns otherwise follow-up with regular doctor in take [id number] pain control medications as needed. Patient Language: Irish Prescriptions: No Action amlodipine 5 mg tablet 5 mg PO DAILY atorvastatin 20 mg tablet 20 mg PO DAILY gabapentin 100 mg capsule 200 mg PO TID Qty: 540 1RF (DME) blood-glucose meter [Blood Glucose Monitoring] Kit See Rx Instructions .ROUTE .MEDSUPPLY Qty: 1 0RF Rx Instructions: once (DME) Blood Glucose Test Strip See Rx Instructions .ROUTE .MEDSUPPLY Qty: 100 1RF Rx Instructions: bid (DME) lancets 31 gauge misc See Rx Instructions .ROUTE .MEDSUPPLY Qty: 100 1RF Rx Instructions: bid aspirin [Children's Aspirin] 81 mg Tablet,Chewable 81 mg PO DAILY@0800 Qty: 30 0RF labetalol 200 mg tablet 200 mg PO Q12H sevelamer carbonate 800 mg tablet 1,600 mg PO TIDWM Patient Comments: Before she eats. hydralazine 100 mg tablet 100 mg PO Q12H Patient Comments: pt stated and verified with picture of medication bottle cholecalciferol (vitamin D3) [Vitamin D3] 125 mcg (5,000 unit) tablet 5,000 unit PO DAILY (DME) FreeStyle Alexandro 3 Plus Sensor Device See Rx Instructions .Route Qty: 2 3RF Rx Instructions: Check glucose continuous As directed insulin glargine [Lantus Solostar U-100 Insulin] 100 unit/mL (3 mL) insulin pen 14 unit subcut HS Qty: 15 3RF Follow-up/Referrals: Sulema Lennon APRN [Primary Care Provider] - Time of Disposition: 16:20
--- NOTE | 2024-04-04 13:12 | ECG_ITS ---
Test Date: 2024-04-04 14:28:05 Measurements Intervals [place] Rate: 67 P: 48 CO: 146 QRS: -4 QRSD: 86 T: 41 QT: 425 QTc: 452 Interpretive Statements SINUS RHYTHM CONSIDER ANTEROSEPTAL INFARCT, AGE INDETERMINATE BASELINE ARTIFACT- I, II, III, AVR, AVL, AVF, V1-V6 ABNORMAL ECG Compared to ECG 01/06/2024 03:33:08 NO SIGNIFICANT CHANGE Electronically Signed On 04-04-2024 15:05:04 WAREHOUSE PROCESSOR by Tomasz Scott D.O.
[2024-04-04 14:53] LABS: Basophils Absolute Auto 0.1 K/mm3 (0.0-0.1); Eosinophils Absolute Auto 0.5 K/mm3 (0-0.3); Eosinophils Percent Auto 6.9 % (0-4.4); Hematocrit 34.2 % (37.0-47.0); Hemoglobin 10.8 g/dL (12.0-15.0); Immature Granulocyte Absolute 0.03 K/mm3 (0.00-0.031); Immature Granulocyte Percent A 0.4 % (0-0.5); Lymphocytes Absolute Auto 2.68 K/mm3 (0.9-3.2); Lymphocytes Percent Auto 38.5 % (18.3-44.2); Mean Corpuscular HGB Conc 31.6 g/dl (32-36); Mean Corpuscular Hemoglobin 26.3 pg (26-34); Mean Corpuscular Volume 83.4 fl (80-100); Mean Platelet Volume 9.7 fl (7.4-10.4); Monocytes Absolute Auto 0.4 K/mm3 (0.1-0.6); Monocytes Percent Auto 5.9 % (2.6-8.5); Neutrophils Absolute Auto 3.3 K/mm3 (1.3-6.7); Neutrophils Percent Auto 47.3 % (45.5-73.1); Platelet Count Result 252 k/mm3 (150-375); Red Cell Distribution Width 15.5 % (11.5-14.5)
[2024-04-04 15:03] LABS: Anion Gap 12 mmol/L (4-12); Blood Urea Nitrogen 60 mg/dL (7-17); Calcium 9.1 mg/dL (8.4-10.2); Carbon Dioxide 22 mmol/L (22-30); Chloride 105 mmol/L (98-107); Estimated CRCL calculation 5 ml/min; Estimated Glomerular Filt Rate 4; Glucose 76 mg/dL (65-110); Potassium 5.2 mmol/L (3.4-5.0); Sodium 139 mmol/L (137-145)
[2024-04-04] MEDS: KETOROLAC 15 MG/ML VIAL (*BKC) IV PUSH (15:03)
[2024-04-04 15:08] VITALS: BP 225/100; PULSE 77; RESP 16; TEMP 36.6; O2SAT 99
[2024-04-04 15:15] LABS: Troponin I < 0.012 ng/mL (0.000-0.034)
[2024-04-04 15:29] LABS: Influenza A QL RT-PCR Negative (Negative); Influenza B QL RT-PCR Negative (Negative); RSV RNA, RT-PCR Negative (Negative); SARS-CoV-2 RNA PCR Negative (Negative)
[2024-04-04] MEDS: hydrALAZINE HCL 50 MG TABLET 100 MG PO (16:32)
[2024-04-04] MEDS: amLODIPine BESYLATE 5 MG TABLET PO (16:33)
[2024-04-04 16:50] VITALS: BP 155/95; PULSE 88; RESP 16; TEMP 36.7; O2SAT 98
== END 2024-04-04 16:50 | disposition home or self-care (01) ==
PROVIDERS: Emergency Provider Student in an Organized Health Care Education/Training Program; PCP Nurse Practitioner Family
DX: T82.868A Thrombosis due to vascular prosthetic devices, implants and grafts, initial encounter (principal); Z20.822 Contact with and (suspected) exposure to COVID-19; E11.22 Type 2 diabetes mellitus with diabetic chronic kidney disease; I12.0 Hypertensive chronic kidney disease with stage 5 chronic kidney disease or end stage renal disease; N18.6 End stage renal disease; D63.1 Anemia in chronic kidney disease; Z99.2 Dependence on renal dialysis; E11.42 Type 2 diabetes mellitus with diabetic polyneuropathy; E66.9 Obesity, unspecified; E66.01 Morbid (severe) obesity due to excess calories; Z68.36 Body mass index [BMI] 36.0-36.9, adult; K58.9 Irritable bowel syndrome, unspecified; K21.9 Gastro-esophageal reflux disease without esophagitis; Z90.49 Acquired absence of other specified parts of digestive tract; Z90.79 Acquired absence of other genital organ(s); Y84.1 Kidney dialysis as the cause of abnormal reaction of the patient, or of later complication, without mention of misadventure at the time of the procedure; Z79.82 Long term (current) use of aspirin; Z79.899 Other long term (current) drug therapy; Z79.4 Long term (current) use of insulin; R94.31 Abnormal electrocardiogram [ECG] [EKG]
CPT/HCPCS: 36415; 71045; 73030; 80048; 84484; 85025; 87637; 93005; 93971; 96374; 99284; A9270; J1885

== ENCOUNTER 2024-05-05 13:19 | Emergency (ER) | payer MEDICARE, MEDICAID, SELFPAY ==
--- NOTE | ~2024-05-05 | XR_ITS ---
EXAMINATION: XR ribs RT 2V w CXR 2V DATE: 05/05/2024 15:53 INDICATION: Fall. TECHNIQUE: Frontal and lateral views of the chest and 2 views on 3 radiographs of the right ribs were obtained. COMPARISON: Chest single view 04/04/2024 FINDINGS: CHEST TWO VIEWS: A calcified right lung nodule and calcified right hilar lymph nodes are consistent w ith old granulomatous disease. No pleural effusion or pneumothorax. The heart size is normal. Surgica l clips in the right upper quadrant are likely from cholecystectomy. RIGHT RIBS: There is no rib fracture. IMPRESSION: 1. No rib fracture. Reviewed, dictated and finalized at location B. IMPRESSION: 1. No rib fracture.
--- NOTE | ~2024-05-05 | CT_ITS ---
EXAMINATION: CT thoracic lumbar wo con DATE: 05/05/2024 16:00 INDICATION: Spine injury. Fall. TECHNIQUE: Computed tomography (CT) of the thoracic and lumbar spine was performed without intravenou s contrast. Automated exposure control and iterative reconstruction technique were employed. The dose -length product was 2020.65 mGy-cm. COMPARISON: CT abdomen and pelvis 03/06/2024 FINDINGS: CT THORACIC SPINE: Alignment is normal. Vertebral body heights are normal. There is mildly decreased disc height from T6-T7 through T9-T10. There is multilevel mild facet joint osteoarthritis. On the ri ght, there is mild neural frontal stenosis at T4-T5. There is mild central canal stenosis at T6-T7, T 7-T8, T8-T9, T9-T10, and T10-T11. CT LUMBAR SPINE: There is a peritoneal dialysis catheter. There is a small volume of ascites. L5 is a transitional segment. Vertebral body heights are normal. Intervertebral disc heights are normal. The following disc levels are specifically discussed: L1-L2: The disc is bulging. There is mild bilateral facet joint osteoarthritis. There is mild bilater al neural foraminal stenosis. There is mild central canal stenosis. L2-L3: The disc is bulging. There is mild bilateral facet joint osteoarthritis. There is mild bilater al neural foraminal stenosis. There is mild central canal stenosis. L3-L4: The disc is bulging. There is moderate right and severe left facet joint osteoarthritis. There is moderate bilateral neural foraminal stenosis. There is mild central canal stenosis. L4-L5: The disc is bulging. There is moderate bilateral facet joint osteoarthritis. There is mild winston ateral neural foraminal stenosis. There is mild central canal stenosis. L5-S1: The disc does not extend beyond the endplate margin. There is no facet joint hypertrophy. Ther e is no neural foraminal stenosis. There is no central canal stenosis. IMPRESSION: 1. No fracture. 2. Mild thoracic and lumbar spondylosis. Reviewed, dictated and finalized at location B.
--- NOTE | ~2024-05-05 | CT_ITS ---
CT abdomen pelvis w con Ordering provider: Rocky Adam MD History: 44 years Female with . RIGHT FLANK TRAUMA . Comparison: None. Technique: CT abdomen and pelvis with IV and without oral contrast. Automated exposure control and it erative reconstruction technique were employed. The dose-length product was 1332.03 mGy-cm. 100 mL Om nipaque 350 was given IV. Findings: VISUALIZED LOWER CHEST: Normal. UPPER ABDOMINAL ORGANS: Liver: Normal. Fluid is seen around the liver. Gallbladder: Status post cholecystectomy. Spleen: Normal. Minimal fluid seen around the spleen. Stomach/duodenum: Normal. Pancreas: Normal. Adrenals: Normal. Kidneys: Small cyst in the right kidney upper pole. Hypodensity in the left kidney lower pole measur ing 1.2 cm which may be a mass or focal infection. Follow-up advised. Calcifications seen in the left kidney lower pole which may be vascular or stones. Follow-up advised. Minimal fluid is seen around t he right and left kidneys. PELVIC ORGANS: The bladder is normal. Uterus: Normal. BOWEL AND MESENTERY: Colon: No evidence of diverticulitis. Fecal material seen in the right side of the colon. Appendix is not demonstrated. Small Bowel: Slightly thickened wall of the jejunal loops which may indicate enteritis. Clinical orquidea elation advised.. No obstruction. Peritoneum/mesentery: No free air. Free fluid seen around the liver, and the left paracolic gutter an d in the pelvis.There is a dialysis catheter is seen in the pelvis exiting from the right anterior ab dominal wall. No mesenteric lymphadenopathy. RETROPERITONEUM: Moderate atheromatous disease of the abdominal aorta. No retroperitoneal lymphaden opathy. Para-aortic lymph nodes are seen with the largest measures 1.3 cm. MUSCULOSKELETAL: Superficial soft tissues: Subcutaneous edema seen in both sides. Otherwise, The superficial soft tiss ues are Bones: Normal the spine. IMPRESSION: 1. Slightly thickened wall of the jejunal loops which may indicate enteritis. 2. Mild to moderate ascites with abdominal dialysis catheter seen in the pelvis. 3. Hypodensity in the left kidney lower pole follow-up to exclude a mass is advised. Reviewed, dictated and finalized at location A. IMPRESSION: 1. Slightly thickened wall of the jejunal loops which may indicate enteritis. 2. Mild to moderate ascites with abdominal dialysis catheter seen in the pelvi s. 3. Hypodensity in the left kidney lower pole follow-up to exclude a mass is ad vised.
[2024-05-05 13:22] VITALS: BP 151/68; PULSE 81; RESP 16; TEMP 36.4; O2SAT 100
--- OUTSIDE RECORDS SUMMARY | 2024-05-05 14:57 | XMS_ITS | Clinical Summary ---
Author Organization [facility] Address [address] [place] [id number] Phone Care Team Providers Care Brush Sander Name Role Phone Jessie Dickson MD Primary Care Provider [phone] Allergies Active Allergy Reactions Criticality Noted Date [...] times daily. 05/28/2018 Active ergocalciferol (VITAMIN D2) 11793 units capsule TK 1 C PO Q [...] the skin Active Blood Glucose Monitoring Suppl ([employer] Software Verio Flex System) w/Device kit USE DIRECTED [...] Comments Influenza Vaccine (#1) 2023 Care Teams Brush Sander Relationship Specialty Start Date End Date Jessie Dickson MD [address] [place] [address] PCP - General 05/31/18
--- OUTSIDE RECORDS SUMMARY | 2024-05-05 14:57 | XMS_ITS | Patient Health Summary ---
Author Organization [facility] Address [address] 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 This disclosure is being madepursuant to the Care Everywhere program and may not contain all information available regarding this patient. Last updated 17.[facility] Allergies * Metronidazole(Skin Reactions) -Medium Criticality [...] nightly 11 refills remaining * ergocalciferol (DRISDOL) 52774 units capsule(Started 07/26/2018) Take 1 capsule by [...] 1 the morning of procedure) * HYDROcodone-acetaminophen (Jefferson) 5-325 MG tablet(Started 02/05/2022) Take 1 (one) [...] Comments Blood Pressure 145/85 02/05/2022 12:[address] garcia aware; ok to d/cv Pulse 74 02/05/2022 11:55 AM RN COMMUNITY Temperature 36.8 C (98.2 F) 09/13/2019 8:22 AM CDT Respiratory Rate 12 02/05/2022 11:5 0 AM RN COMMUNITY Oxygen Saturation 100% 02/05/2022 11: 55 AM RN COMMUNITY Inhaled Oxygen Concentration - - Weight 108.9 kg (240 lb) 09/13/2019 8:2 2 AM CDT Height 160 cm (5' 3 ) 09/13/2019 8:22 AM CDT Body Mass Index 42.51 09/13/2019 8:22 AM CDT Procedures * US AV HEMODIALYSIS ACCESS(Performed 02/19/2022) Performed for End stage renal disease ([facility]) * IR AV FISTULA CREATION(Performed 02/05/2022) Performed for End stage renal disease ([facility]) * CBC W/O DIFFERENTIAL(Performed 01/21/2022) Performed for ESRD (end stage renal disease) ([facility]) * PT-INR(Performed 01/21/2022) Performed for ESRD (end stage renal disease) ([facility]) * PTT(Performed 01/21/2022) Performed for ESRD (end stage renal disease) ([facility]) * VAS RIGHT MAPPING FOR HEMODIALYSIS(Performed 01/09/2022) Performed for End stage renal disease ([facility]) * IR CENTRAL LINE REMOVAL(Performed 05/08/2021) Performed for End stage renal disease ([facility]) * IR CENTRAL LINE INSERT [...] laboratory test result, Drug-induced lupus erythematosus * LEGGETT/WIRE MILL ROVER (MOHSEN) ANTIBODY IGG(Performed 09/13/2019) Performed for Positive [...] Positive JAYA (antinuclear antibody), Optic neuritis * MPO/IN 3 AUTOANTIBODIES PANEL(Performed 09/01/2018) Performed for Abnormal [...] Positive JAYA (antinuclear antibody), Optic neuritis * WIRE MILL ROVER ANTIBODY(Performed 09/01/2018) Performed for Abnormal laboratory test [...] BASIC METABOLIC PANEL (CALCIUM TOTAL)(Performed 06/07/2018) * WIRE MILL ROVER ANTIBODY(Performed 05/28/2018) * LEGGETT (SM) ANTIBODY MOHSEN(Performed 05/28/2018) * DNA ANTIBODY DOUBLE STRANDED(Performed 05/28/2018) * GLUCOSE - POINT OF CARE(Performed 05/28/2018) * CRYOGLOBULIN QUANTITATIVE(Performed 05/28/2018) * C-REACTIVE PROTEIN(Performed 05/28/2018) * HEPATITIS C AB SCREEN RFLX NAAT QUANT(Performed 05/28/2018) * HEPATITIS B SURFACE ANTIGEN W RFLX CONFIRMATION(Performed 05/28/2018) * MPO/IN 3 AUTOANTIBODIES PANEL(Performed 05/28/2018) * ANTI-NEUTROPHIL CYTOPLASMIC [...] diabetes mellitus with diabetic nephropathy, unspecified whether moth exterminator insulin use (HCC) * HEMOGLOBIN A1C - [...] US AV HEMODIALYSIS ACCESS (02/19/2022 10:00 AM RN COMMUNITY) Anatomical Region Laterality Modality Upper Extremity X-Ray Angiograph y Narrative 02/19/2022 12:40 PM RN COMMUNITY Elio Garcia MD 02/19/2022 12:50 PM VASCULAR [...] av fistula. Elio Garcia M.D. Interventional Nephrology [facility] [phone] CC: MD Dr. Modesto Canchola MD Beth Tripp MD US ORDERABLES * IR AV FISTULA CREATION (02/05/2022 11:55 AM RN COMMUNITY) Anatomical Region Laterality Modality X-Ray Angiograph y Narrative 02/05/2022 4:32 PM RN COMMUNITY Elio Garcia MD 02/05/2022 5:07 PM Procedure Date: 02/05/2022 Attending Surgeon and performing the procedure: Elio Garcia MD Aquaculture Program Director: Nohemy Martinez RN Medical indication for the [...] 1. ENDOVASCULAR AV FISTULA CREATION USING THE [employer] TECHNOLOGY; G2171 2. MODERATE CONSCIOUS SEDATION INITIAL 15 MIN; 39303 3. MODERATE CONSCIOUS SEDATION ADDITIONAL 15 MIN; 48582 Findings: 1. The right medial brachial vein was cannulated with a 21 gauge micropuncture needle using ultrasound guidance for vascular access. The needle tip was observed entering the lumen of the vein real-time and permanent recording was obtained. 2. The lateral ulnar vein was selectively catheterized. An angiogram performed showed the lateral ulnar vein draining directly into a short care manager cna attack communicates with the radial veins and [...] observed with predominant contrast washout through the care manager cna to the superficial vessels. DESCRIPTION OF THE [...] distally using fluoroscopic guidance. Subsequently, a 6 Tristanian vascular sheath was placed. Using a 0.018 V-18 wire, the 4 Tristanian KA2 catheter was navigated to the ulnar vein in the region of the arteriovenous fistula creation target zone and venography performed: 2. The lateral ulnar vein was selectively catheterized. An angiogram performed showed the lateral ulnar vein draining directly into a short care manager cna attack communicates with the radial veins and [...] followed by the placement of a 4 Tristanian catheter. After the 4 Tristanian catheter was placed, a cocktail including 2000 [...] without any filling defects. Subsequently, a 4 Tristanian vascular sheath was placed and connected to [...] were removed. Contrast injection into the 6 Tristanian arterial sheath confirmed arteriovenous fistula creation between [...] not part of the AV fistula, 4 Tristanian KA2 catheter was advanced over the venous guide wire. With the aid of a 0.035 in Bentson guidewire the 4 Tristanian K a 2 catheter was used to [...] observed with predominant contrast washout through the care manager cna to the superficial vessels. Next, the KA2 [...] RECOMMENDATIONS: 1. The patient should follow-up with [facility] for ultrasound evaluations at approximately 1, 2, and 4 weeks from the date of procedure. The arteriovenous fistula should not be cannulated until cleared by either Dr. Azevedo or Dr. Garcia. The right arm should not be used for blood pressure measurements or phlebotomy. Dr Elio Garcia M.D. Interventional Nephrology [facility] V[facility] Access Center [phone] Dr. Modesto Tripp MD [facility] Beth Tripp MD IR ORDERABLES * PTT (01/21/2022 9:30 AM RN COMMUNITY) PTT 29.6 23.0 - 38.4 sec 01/21/2022 9:58 AM RN COMMUNITY [facility] Blood BLOOD SPECIMEN / Unknown Lab Venipuncture / Unknown 01/21/2022 9:30 AM RN COMMUNITY 01/21/2022 9:40 AM RN COMMUNITY [facility] - 01/21/2022 9:58 AM RN COMMUNITY Heparin Therapeutic Range for PTT: 69.0 - 110.0 seconds. Elio Garcia MD LAB - COAGULATION ORDERABLES Performing Organization Address City/State/[facility] Co de Phone Number [facility] [address] [place] [phone] * PT-INR (01/21/2022 9:30 AM RN COMMUNITY) PT 12.6 12.1 - 14.8 sec 01/21/2022 9:58 AM RN COMMUNITY [facility] INR 0.9 0.9 - 1.1 01/21/2022 9:58 AM RN COMMUNITY [facility] Blood BLOOD SPECIMEN / Unknown Lab Venipuncture / Unknown 01/21/2022 9:30 AM RN COMMUNITY 01/21/2022 9:40 AM RN COMMUNITY [facility] - 01/21/2022 9:58 AM RN COMMUNITY Conventional Warfarin Anticoagulant Therapy: INR Reference Range: 2.0-3.0 Intensive Warfarin Anticoagulant Therapy: INR Reference Range: 2.5-3.5 Elio Garcia MD LAB - COAGULATION ORDERABLES [facility] [address] [place] [address] * (ABNORMAL) CBC W/O DIFFERENTIAL (01/21/2022 9:30 AM RN COMMUNITY) Only the most recent of2 resultswithin the time period is included. WBC 10.4 4.4 - 10.7 x10E9/L 01/21/2022 9:50 AM RN COMMUNITY [facility] RBC 3.84 3.80 - 5.20 x10E12/L 01/21/2022 9:50 AM [facility] Hemoglobin 11.0(L) 12.0 - 15.6 gm/dL 01/21/2022 9:50 AM [facility] Hematocrit 34.4(L) 35.9 - 45.5 % 01/21/2022 9:50 AM [facility] MCV 89.6 80.7 - 98.3 fl 01/21/2022 9:50 AM [facility] MCH 28.6 26.7 - 34.0 pg 01/21/2022 9:50 AM [facility] MCHC 32.0 30.8 - 35.9 gm/dL 01/21/2022 9:50 AM [facility] Platelet Count 344 153 - 416 x10E9/L 01/21/2022 9:50 AM [facility] RDW-CV 13.2 12.1 - 14.9 % 01/21/2022 9:50 AM [facility] MPV 9.2(L) 9.4 - 12.9 fl 01/21/2022 9:50 AM [facility] Blood BLOOD SPECIMEN / Unknown Lab Venipuncture / Unknown 01/21/2022 9:30 AM RN COMMUNITY 01/21/2022 9:40 AM [facility] El[facility] MD LAB - HEMATOLOGY ORDERABLES Performing Organization Address City/State/[facility] Co de Phone Number [facility] [address] [place] [address] * VAS RIGHT MAPPING FOR HEMODIALYSIS (01/09/2022 10:52 AM [facility] Anatomical Region Laterality Modality X-Ray Angiograph y [...] the forearm or the upper. The patient's sugar cane planter is Beth tripp MD. VS: There were [...] for 01/21/2022. Yola Garcia M.D. Interventional Neprology [facility] V[facility] Access Center [phone] Dr. Beth tripp MD [facility] dialysis Beth Tripp MD VASCULAR LAB ORDER [...] Tamir Azevedo M.D. Vascular and Interventional Radiology [facility] V[facility] [phone] CC: Patient's sugar cane planter: Dr. Modesto Tripp Dialysis unit: [facility] Beth Tripp MD IR ORDERABLES * IR CENTRAL LINE INSERT TUNNEL (04/17/2021 2:38 PM RN COMMUNITY) Anatomical Region Laterality Modality Chest, Upper Extremity X-Ray Ang iography Narrative 04/17/2021 2:39 PM RN COMMUNITY Aaliyah Azevedo MD 04/17/2021 2:45 PM VASCULAR AND INTERVENTIONAL RADIOLOGY EXAMINATION: LEFT INTERNAL JUGULAR TUNNELED CENTRAL VENOUS CATHETER PLACEMENT. RIGHT INTERNAL JUGULAR TUNNELED CENTRAL VENOUS CATHETER REMOVAL Date: 04/17/2021 History: Bakari Smith is a 41 year old female with history of hypertension, diabetes, and end-stage renal disease who is currently dialyzing through a right thoracic tunneled hemodialysis catheter that was placed at [facility]. The patient states that the catheter has [...] completed, removal can be scheduled by calling [facility] at [phone]. Tamir Azevedo M.D. Vascular and Interventional Radiology [facility] V[facility] [phone] CC: Patient's sugar cane planter: Dr. Modesto Tripp Dialysis unit: [facility] Beth Tripp MD IR ORDERABLES * (ABNORMAL) URINALYSIS REFLEX TO MICROSCOPIC NO CULTURE (09/13/2019 9:58 AM CDT) Only the most recent of3 resultswithin the time period is included. Color UA Yellow Straw, Yellow, Colorless 09/13/2019 10:45 AM [facility] Clarity UA Slt Cloudy Clear, Slt Cloudy 09/13/2019 10:45 AM CDT [facility] Specific Mcfarland UA 1.023 1.005 - 1.030 09/13/2019 10:45 AM [facility] pH UA 6.0 5.0 - 8.0 pH 09/13/2019 10:45 AM T [facility] Protein UA 3+(A) Negative mg/dL 09/13/2019 10:45 AM [facility] Glucose UA 2+(A) Negative mg/dL 09/13/2019 10:45 AM CDT [facility] Ketone UA Negative Negative mg/dL 09/13/2019 10:45 AM T [facility] Bilirubin UA Negative Negative mg/dL 09/13/2019 10:45 AM [facility] Blood UA Negative Negative 09/13/2019 10:45 AM T [facility] Nitrite UA Negative Negative 09/13/2019 10:45 AM CDT [facility] Leukocyte Esterase Negative Negative 09/13/2019 10:45 AM CDT [facility] Urobilinogen UA Negative Negative mg/dL 09/13/2019 10:45 AM T [facility] RBC UA 0-2 None Seen, 0-2, 3-5 /HPF 09/13/2019 10:45 AM T [facility] WBC UA 0-5 None Seen, 0-5 /HPF 09/13/2019 10:45 AM T [facility] Bacteria UA Trace None, Trace /HPF 09/13/2019 10:45 AM [facility] Squamous Epithelial Cells UA 0-2 None Seen, 0-2 /HPF 09/13/2019 10:45 AM [facility] Hyaline Casts UA 0-2 None Seen, 0-2 /LPF 09/13/2019 10:45 AM [facility] Urine URINE SPECIMEN OBTAINED BY CLEAN CATCH PROCEDURE / Unknown Collection / Unknown 09/13/2019 9:58 AM CDT 09/13/2019 10:23 AM CDT Narrative [facility] - 09/13/2019 10:45 AM CDT Addie Rodriguez MD LAB - URINALYSIS ORDERABLES [address] [address], [place] [phone] * (ABNORMAL) JAYA BLOOD SINGLE PATTERN (09/13/2019 9:42 AM CDT) JAYA Pattern Homogeneo us(A) 09/16/2019 7:56 AM CDT [employer] [facility] ([facility]) JAYA Titer 1:320(A) 09/16/2019 7:56 AM CDT [facility] [facility] ([facility]) Comment: Performed By: [facility] [address] [place] [address] Life Insurance Actuary: Sahil Chin MD, MS Blood BLOOD SPECIMEN / Unknown Lab Venipuncture / Unknown 09/13/2019 9:42 AM CDT 09/13/2019 10:24 AM CDT Addie Mili Rodriguez MD LAB - CHEMISTRY O RDERABLES [facility] [facility]) [address] * SS-A (SJOGREN'S) 52+60 ANTIBODIES (09/13/2019 9:42 AM CDT) SS-A 52 Antibody 1 0 - 40 AU/mL 09/15/2019 9:19 AM CDT [employer] ([facility]) Comment: INTERPRETIVE INFORMATION: SSA-52 (Ro52) (MOHSEN) Antibody, [...] - 40 AU/mL 09/15/2019 9:19 AM CDT [employer] ([facility]) Comment: REFERENCE INTERVAL: SSA-60 (Ro60) (MOHSEN) Antibody, IgG 29 AU/mL or Less ............. Negative 30 - 40 AU/mL ................ Equivocal 41 AU/mL or Greater .......... Positive Performed By: [facility] [address] [place] [address] Life Insurance Actuary: Sahil Chin MD, MS Blood BLOOD SPECIMEN / Unknown Lab Venipuncture / Unknown 09/13/2019 9:42 AM CDT 09/13/2019 10:23 AM CDT Addie Rodriguez MD LAB - CHEMISTRY O NARDA Performing Organization Address [facility] Co de Phone Number [facility] [employer] [facility]) [address] * LEGGETT/WIRE MILL ROVER (MOHSEN) ANTIBODY IGG (09/13/2019 9:42 AM CDT) Leggett/WIRE MILL ROVER (MOHSEN) Antibody IgG 3 0 - 40 AU/mL 09/15/2019 9:19 AM CDT [facility] [employer] ([facility]) Comment: INTERPRETIVE INFORMATION: Leggett/WIRE MILL ROVER (MOHSEN) Antibody, IgG 29 AU/mL or Less ............. Negative 30 - 40 AU/mL ................ Equivocal 41 AU/mL or Greater .......... Positive Leggett/WIRE MILL ROVER antibodies are frequently seen in patients with mixed connective tissue disease (MCTD) and are also associated with other systemic autoimmune rheumatic diseases (SARDs) such as systemic lupus erythematosus (SLE), systemic sclerosis, and myositis. Antibodies targeting the Leggett/WIRE MILL ROVER antigenic complex also recognize Leggett antigens, therefore, the Leggett antibody response must be considered when interpreting these results. Performed By: [facility] [address] [place] [address] Life Insurance Actuary: Sahli Chin MD, MS Blood BLOOD SPECIMEN / Unknown Lab Venipuncture / Unknown 09/13/2019 9:42 AM CDT 09/13/2019 10:23 AM CDT Addie Rodriguez MD LAB - CHEMISTRY O NARDA Performing Organization Address [facility]/ZIP Co de Phone Number [facility] ([facility]) [address] * (ABNORMAL) CHROMATIN ANTIBODY (09/13/2019 9:42 AM CDT) Only the most recent of3 resultswithin the time period is included. Pathologist [facility] Chromatin Antibody 52(H) 0 - 19 Units 09/17/2019 1:03 PM CDT [facility] [employer] ([facility]) Comment: INTERPRETIVE INFORMATION: Chromatin Antibody, IgG 19 Units or less: Negative 20 - 60 Units: Moderate Positive 61 Units or greater: Strong Positive The presence of anti-chromatin antibodies may be useful in the diagnosis of systemic lupus erythematosus (SLE) or drug-induced lupus (DIL) and have been reported to be predictive of lupus nephritis, especially when antibody levels are high. Performed By: [facility] [address] [place] [address] Life Insurance Actuary: Sahil Chin MD, MS Blood BLOOD SPECIMEN / Unknown Lab Venipuncture / Unknown 09/13/2019 9:42 AM CDT 09/13/2019 10:24 AM CDT Addie Rodriguez MD LAB - SEROLOGY OR DERABLES [facility]) [address] [place] [address], [place] * (ABNORMAL) DNA ANTIBODY DS CRITHIDIA TITER (09/13/2019 9:42 AM CDT) Only the most recent of2 resultswithin the time period is included. Pathologist [facility] dsDNA Antibody IgG 1:20(H) <1:10 2019 4:26 PM CDT [facility] [employer] ([facility]) Comment: INTERPRETIVE INFORMATION: Double-Stranded DNA (dsDNA) Antibody, IgG by IFA (using Crithidia luciliae) Positivity for anti-double stranded DNA (anti-dsDNA) IgG antibody is a diagnostic criterion of systemic lupus erythematosus (SLE). The presence of the anti-dsDNA IgG antibody is identified by IFA titer (Crithidia luciliae indirect fluorescent test [SOPHIE]). SOPHEI is highly specific for SLE with a [...] recommendations for testing may be found at http://www.[email or web address]/Topics/AutoimmuneDz/ConnectiveTissueDz/i ndex.html. Performed By: [facility] [address] [place] [address] Life Insurance Actuary: Sahil Chin MD, MS Blood BLOOD SPECIMEN / Unknown Lab Venipuncture / Unknown 09/13/2019 9:42 AM CDT 09/13/2019 10:23 AM CDT Addie Rodriguez MD LAB - SEROLOGY OR DERABLES Performing Organization Address City/[facility]/ZIP Co de Phone Number [facility] [facility]) [address] [place] [address] * LEGGETT (SM) ANTIBODY MOHSEN (09/13/2019 9:42 AM CDT) Only the most recent of3 resultswithin the time period is included. Leggett (MOHSEN) Antibody 1 0 - 40 AU/mL 09/15/2019 6:32 AM CDT [facility] ([facility]) Comment: INTERPRETIVE INFORMATION: Leggett (MOHSEN) Antibody, IgG 29 AU/mL or Less ............. Negative 30 - 40 AU/mL ................ Equivocal 41 AU/mL or Greater .......... Positive Leggett antibody is highly specific (greater than 90 percent) for systemic lupus erythematosus (SLE) but only occurs in 30-35 percent of SLE cases. The presence of antibodies to Leggett has variable associations with SLE clinical manifestations. Performed By: [facility] [address] [place] [address] Life Insurance Actuary: Sahil Chin MD, MS Blood BLOOD SPECIMEN / Unknown Lab Venipuncture / Unknown 09/13/2019 9:42 AM CDT 09/13/2019 10:23 AM CDT Addie Rodriguez MD LAB - CHEMISTRY O RDERABLES Performing Organization Address City/[facility]/ZIP Co de Phone Number [facility] [employer] ([facility]) [address] [place] [address] * (ABNORMAL) C-REACTIVE PROTEIN (09/13/2019 9:42 AM CDT) Only the most recent of4 resultswithin the time period is included. Pathologist [facility] C-Reactive Protein 1.2(H) <=0.5 mg/dL 09/13/2019 11:22 AM CDT [facility] Blood BLOOD SPECIMEN / Unknown Lab Venipuncture / Unknown 09/13/2019 9:42 AM CDT 09/13/2019 10:24 AM CDT Addie Rodriguez MD LAB - CHEMISTRY O RDMANISHA [address] [address], [place] [phone] * (ABNORMAL) JAYA BLOOD SCREEN W/REFLEX TITER (09/13/2019 9:42 AM CDT) Only the most recent of4 resultswithin the time period is included. [facility] JAYA IgG Detected (A) None Detected 09/15/2019 3:12 PM CDT [employer] ([facility]) Comment: Antibodies to Anti-Nuclear Antibodies (JAYA) detected. [...] dsDNA, histones, SS-A (Ro), SS-B (La), Leggett, Leggett/WIRE MILL ROVER, Scl-70, Mariajose-1, centromeric proteins, other antigens extracted from the HEp-2 cell nucleus. JAYA CAITLIN assays have been reported to have lower sensitivities than JAYA IFA for systemic autoimmune rheumatic diseases (SARD). Negative results do not necessarily rule out SARD. Performed By: [facility] [address] [place] [address] Life Insurance Actuary: Sahil Chin MD, MS Blood BLOOD SPECIMEN / Unknown Lab Venipuncture / Unknown 09/13/2019 9:42 AM CDT 09/13/2019 10:24 AM CDT Addie Rodriguez MD LAB - CHEMISTRY O RDMANISHA Performing Organization Address [facility] Co de Phone Number [facility] [facility]) [address] * HISTONE ANTIBODY (09/13/2019 9:42 AM CDT) Only the most recent of3 resultswithin the time period is included. Histone Antibody IgG 0.7 0.0 - 0.9 Units 09/16/2019 10:13 AM CDT [facility] [employer] ([facility]) Comment: INTERPRETIVE INFORMATION: Histone Ab, IgG 0.9 Units or less ............ Negative 1.0 - 1.5 Units .............. Weak Positive 1.6 - 2.5 Units .............. Moderate Positive 2.6 Units or greater ......... Strong Positive Performed By: [facility] [employer] [address] [place] [address] Life Insurance Actuary: Sahil Chin MD, MS Blood BLOOD SPECIMEN / Unknown Lab Venipuncture / Unknown 09/13/2019 9:42 AM CDT 09/13/2019 10:23 AM CDT Addie Mili Rodriguez MD LAB - CHEMISTRY O RDERALD Performing Organization Address [facility] Co de Phone Number [facility] [employer] ([facility]) [address] * SS-B (SJOGREN'S) ANTIBODY (09/13/2019 9:42 AM CDT) Only the most recent of3 resultswithin the time period is included. SS-B Antibody 0 0 - 40 AU/mL 09/15/2019 6:32 AM CDT [facility] [employer] ([facility]) Comment: INTERPRETIVE INFORMATION: SSB (La) (MOHSEN) Ab, [...] (PSS) also have this antibody. Performed By: [place] [address] Life Insurance Actuary: Sahil Chin MD, MS Blood BLOOD SPECIMEN / Unknown Lab Venipuncture / Unknown 09/13/2019 9:42 AM CDT 09/13/2019 10:23 AM CDT Addie Rodriguez MD LAB - CHEMISTRY O RDERABLES [facility] ([facility]) [address] [place] [address] * (ABNORMAL) ERYTHROCYTE SEDIMENTATION RATE (09/13/2019 9:42 AM CDT) Only the most recent of5 resultswithin the time period is included. Pathologist [facility] Erythrocyte Sedimentation Rate Westergren 85(H) 0 - 20 MM/HR 09/13/2019 10:51 AM CDT [facility] Blood BLOOD SPECIMEN / Unknown Lab Venipuncture / Unknown 09/13/2019 9:42 AM CDT 09/13/2019 10:24 AM CDT Addie Rodriguez MD LAB - HEMATOLOGY ORDERABLES [address] [address] [phone] * (ABNORMAL) CBC WITH DIFFERENTIAL (09/13/2019 9:42 AM CDT) Only the most recent of3 resultswithin the time period is included. WBC 5.1 3.5 - 10.5 10 3/uL 09/13/2019 10:40 AM CDT [facility] RBC 4.53 3.90 - 5.00 10 6/uL 09/13/2019 10:40 AM CDT [facility] Hemoglobin 11.5(L) 12.0 - 15.5 g/dL 09/13/2019 10:40 AM [facility] Hematocrit 37.1 35.0 - 45.0 % 09/13/2019 10:40 AM [facility] [facility] MCV 81.9 81.0 - 97.0 fL 09/13/2019 10:40 AM [facility] MCH 25.4(L) 28.0 - 34.0 pg 09/13/2019 10:40 AM [facility] MCHC 31.0(L) 32.0 - 36.0 g/dL 09/13/2019 10:40 AM [facility] Platelet Count 278 150 - 400 10 3/uL 09/13/2019 10:40 AM [facility] RDW-SD 41.2 36.0 - 50.0 fL 09/13/2019 10:40 AM [facility] RDW-CV 13.8 11.2 - 14.8 % 09/13/2019 10:40 AM [facility] MPV 10.1 9.3 - 12.8 fL 09/13/2019 10:40 AM [facility] nRBC Absolute 0.00 0 10 3/uL 09/13/2019 10:40 AM [facility] nRBC Auto 0.0 0 /100 WBC 09/13/2019 10:40 AM [facility] Neutrophils % 47.2 35.0 - 70.0 % 09/13/2019 10:40 AM [facility] Lymphocytes % 41.8 19.7 - 55.1 % 09/13/2019 10:40 AM [facility] Monocytes % 8.8 3.0 - 15.0 % 09/13/2019 10:40 AM [facility] Eosinophils % 0.8 0.0 - 6.0 % 09/13/2019 10:40 AM [facility] Basophil % 0.4 0.0 - 1.5 % 09/13/2019 10:40 AM [facility] Neutrophils Absolute 2.4 1.6 - 7.0 10 3/uL 09/13/2019 10:40 AM [facility] Lymphocyte Absolute 2.2 0.8 - 2.9 10 3/uL 09/13/2019 10:40 AM [facility] Monocytes Absolute 0.45 0.14 - 0.66 10 3/uL 09/13/2019 10:40 AM [facility] Eosinophils Absolute 0.04 0.00 - 0.45 10 3/uL 09/13/2019 10:40 AM [facility] Basophils Absolute 0.02 0.00 - 0.06 10 3/uL 09/13/2019 10:40 AM [facility] Immature Granulocytes % 1.0 0.0 - 1.0 % 09/13/2019 10:40 AM [facility] Blood BLOOD SPECIMEN / Unknown Lab Venipuncture / Unknown 09/13/2019 9:42 AM CDT 09/13/2019 10:24 AM CDT Addie Rodriguez MD LAB - HEMATOLOGY ORDERABLES [address] [address], [place] [phone] * (ABNORMAL) COMPREHENSIVE METABOLIC PANEL (09/13/2019 9:42 AM CDT) Only the most recent of5 resultswithin the time period is included. BUN 34(H) 7 - 26 mg/dL 09/13/2019 11:30 AM [facility] Creatinine 3.8(H) 0.6 - 1.2 mg/dL 09/13/2019 11:30 AM [facility] Sodium 137 136 - 145 mmol/L 09/13/2019 11:30 AM [facility] Potassium 4.6(H) 3.5 - 4.5 mmol/L 09/13/2019 11:30 AM [facility] Chloride 107 98 - 107 mmol/L 09/13/2019 11:30 AM [facility] CO2 23 22 - 29 mmol/L 09/13/2019 11:30 AM [facility] Glucose 174(H) 70 - 115 mg/dL 09/13/2019 11:30 AM [facility] Calcium 8.4 8.4 - 10.2 mg/dL 09/13/2019 11:30 AM [facility] Protein Total 6.5 6.0 - 8.3 g/dL 09/13/2019 11:30 AM [facility] Albumin 2.0(L) 3.4 - 5.0 g/dL 09/13/2019 11:30 AM [facility] Bilirubin Total 0.1(L) 0.2 - 1.2 mg/dL 09/13/2019 11:30 AM [facility] Alkaline Phosphatase 126 40 - 150 Units/L 09/13/2019 11:30 AM [facility] ALT 20 0 - 55 Units/L 09/13/2019 11:30 AM [facility] AST 23 5 - 34 Units/L 09/13/2019 11:30 AM [facility] Anion Gap 12 8 - 18 09/13/2019 11:30 AM [facility] BUN/Creatinine Ratio 9 7 - 23 09/13/2019 11:30 AM [facility] Osmolality Calculated 296 270 - 300 mOsm/kg 09/13/2019 11:30 AM [facility] Albumin/Globulin Ratio 0.4(L) 1.1 - 2.3 09/13/2019 11:30 AM [facility] eGFR 16(L) >60 mL/min/1.7 3 m2 09/13/2019 11:30 AM [facility] Blood BLOOD SPECIMEN / Unknown Lab Venipuncture / Unknown 09/13/2019 9:42 AM CDT 09/13/2019 10:24 AM CDT Addie Rodriguez MD LAB - CHEMISTRY O RDERABLES Performing Organization Address [facility]/State/[facility] Co de Phone Number [address] [address] [phone] * OPH VISUAL FIELD TEST SLU (11/04/2018 [...] Unknown 11/01/2018 10:11 AM CDT Tessie Pritchard REVENUE AGENT-MATLAB DEVELOPER LAB - POINT O F CARE ORDERABLES [...] 19 units 09/02/2018 10:06 PM CDT [facility] ([facility]) Comment: Negative <20 Weak positive 20 - 39 Moderate positive 40 - 59 Strong positive >59 Blood BLOOD SPECIMEN / Unknown Lab Venipuncture / Unknown 09/01/2018 10:21 AM CDT 09/01/2018 10:40 AM CDT Narrative [facility] ([facility]) - 09/02/2018 10:06 PM CDT Performed at: 01 - [address] [id number] Lactation Nurse: Negro Sullivan MD, Phone: [phone] Damaris Shetty DO LAB - SEROLOGY ORDER NAZ [facility] ([facility]) [address] [place] [address] * (ABNORMAL) MELISSA STAINING PATTERNS REFLEXED (09/01/2018 10:21 AM CDT) Only the most recent of3 resultswithin the time period is included. Homogeneous Pattern 1:160(H) 09/02/2018 2:11 PM CDT [facility] ([facility]) Note Comment 09/02/2018 2:11 PM CDT [facility] ([facility]) Comment: A positive JAYA result may occur in healthy individuals (low titer) or be associated with a variety of diseases. See interpretation chart which is not all inclusive: Pattern Antigen Detected Suggested Disease Association Homogeneous DNA(ds,ss), SLE - High titers Nucleosomes, Histones Drug-induced SLE Speckled Sm, [place] ROVER, SCL-70, SLE,MCTD,PSS (diffuse form), SS-A/SS-B Sjogrens Nucleolar SCL-70, PM-1/SCL High titers Scleroderma, PM/DM Centromere Centromere PSS (limited form) w/Crest syndrome variable Nuclear Dot [id number] Primary Biliary Cirrhosis Nuclear GP210, Primary Biliary Cirrhosis Membrane roxanne A,B,C Blood BLOOD SPECIMEN / Unknown Lab Venipuncture / Unknown 09/01/2018 10:21 AM CDT 09/01/2018 10:41 AM CDT Narrative [facility] ([facility]) - 09/02/2018 2:11 PM CDT Performed at: [address] [place] [address] [address] [place], [place] [id number] Lactation Nurse: Neil Maloney PhD, Phone: [phone] Damaris Shetty DO LAB - PATHOLOGY/CYTO LOGY ORDERABLES Performing Organization Address [facility] de Phone Number [facility] [address] [place] [address] * [place]OVER ANTIBODY (09/01/2018 10:21 AM CDT) Only the most recent of2 resultswithin the time period is included. SM/W[place] M[place] ROVER Antibody 5.4 0.0 - 19.9 Units 09/03/2018 10:34 AM CDT [facility] Comment: MOHSEN Antibody Numeric Result Interpretation: <20.0 Units: Negative 20.0 - 39.0 Units: Weakly Positive >39.0 Units: Positive Blood BLOOD SPECIMEN / Unknown Lab Venipuncture / Unknown 09/01/2018 10:21 AM CDT 09/01/2018 10:40 AM CDT Damaris Shetty DO LAB - CHEMISTRY [facility] Performing Organization Address [facility] Co de Phone Number [facility] [address] [place] [address] * RHEUMATOID FACTOR BLOOD QUANTITATIVE (09/01/2018 10:21 AM CDT) Rheumatoid Factor <15 <30 IU/mL 09/01/2018 4:17 PM CDT [facility] Blood BLOOD SPECIMEN / Unknown Lab Venipuncture / Unknown 09/01/2018 10:21 AM CDT 09/01/2018 10:40 AM CDT Damaris Clearyancelmo [facility] LAB - CHEMISTRY ORDGarrison MONTEIRO [address] [phone] * THYROID PEROXIDASE ANTIBODY (09/01/2018 10:21 AM CDT) Pathologist [facility] Thyroid Peroxidase TPO Antibody 16 0 - 34 IU/mL 09/02/2018 3:07 AM CDT [facility] ([facility]) Blood BLOOD SPECIMEN / Unknown Lab Venipuncture / Unknown 09/01/2018 10:21 AM CDT 09/01/2018 10:40 AM CDT Narrative [facility] ([facility]) - 09/02/2018 3:07 AM CDT Performed at: - [address] [id number] Lactation Nurse: Neil Maloney PhD, Phone: [phone] Damaris Clearyancelmo [facility] LAB - CHEMISTRY [facility] [facility] ([facility]) [address] [place] [address] * THYROGLOBULIN ANTIBODY (09/01/2018 10:21 AM CDT) Thyroglobulin Antibody <1.0 0.0 - 0.9 IU/mL 09/02/2018 1:10 PM CDT [facility] ([facility]) Comment:Thyroglobulin Antibo dy measured by Beatriz Gary Methodology Blood BLOOD SPECIMEN / Unknown Lab Venipuncture / Unknown 09/01/2018 10:21 AM CDT 09/01/2018 10:39 AM CDT Narrative [facility] ([facility]) - 09/02/2018 1:10 PM CDT Performed at: - [facility] [address] [place], [place] [id number] Lactation Nurse: Neil Maloney PhD, Phone: [phone] Damaris Shetty LAB - CHEMISTRY [facility] THANIA Performing Organization Address City/[facility]/ZIP Co de Phone Number [facility] ([facility]) [address] [place] [address] * SS-A (SJOGREN'S) ANTIBODY (09/01/2018 10:21 AM CDT) Only the most recent of2 resultswithin the time period is included. Pathologist [facility] SS-A (Ro) Antibody 2.3 0.0 - 19.9 Units 09/03/2018 10:35 AM CDT [facility] Comment: MOHSEN Antibody Numeric Result Interpretation: <20.0 Units: Negative 20.0 - 39.0 Units: Weakly Positive >39.0 Units: Positive Blood BLOOD SPECIMEN / Unknown Lab Venipuncture / Unknown 09/01/2018 10:21 AM CDT 09/01/2018 10:40 AM CDT Damrais Shetty LAB - CHEMISTRY BIG CLIFTYGarrison [place]TEIRO Performing Organization Address City/[facility]/ZIP Co de Phone Number [facility] [address] [phone] * MPO/IN 3 AUTOANTIBODIES PANEL (09/01/2018 10:21 AM CDT) Only the most recent of2 resultswithin the time period is included. Anti-myeloperox idase (MPO) Antibody <9.0 0.0 - 9.0 U/mL 09/03/2018 1:08 PM CDT [facility] ([facility]) Anti-proteinase 3 (IN-3) Abs <3.5 0.0 - 3.5 U/mL 09/03/2018 1:08 PM CDT [facility] ([facility]) Blood BLOOD SPECIMEN / Unknown Lab Venipuncture / Unknown 09/01/2018 10:21 AM CDT 09/01/2018 10:40 AM CDT Narrative [facility] ([facility]) - 09/03/2018 1:08 PM CDT Performed at: 01 - [address] [id number] Lactation Nurse: Negro Sullivan MD, Phone: [phone] Damaris A Diogenes [facility] LAB - CHEMISTRY [place] ([facility]) [address] [place] [address] * TSH (09/01/2018 10:21 AM CDT) Only the most recent of3 resultswithin the time period is included. TSH 1.625 0.350 - 4.940 uIU/mL 09/01/2018 12:32 PM CDT [facility] Blood BLOOD SPECIMEN / Unknown Lab Venipuncture / Unknown 09/01/2018 10:21 AM CDT 09/01/2018 10:39 AM CDT Damarisrj Clearyancelmo [facility] LAB - CHEMISTRY [facility] [facility] Performing Organization Address [facility]/ZIP Co de Phone Number [address] [phone] * T4 FREE (09/01/2018 10:21 AM CDT) T4 Free 0.9 0.7 - 1.5 ng/dL 09/01/2018 12:32 PM CDT [facility] Blood BLOOD SPECIMEN / Unknown Lab Venipuncture / Unknown 09/01/2018 10:21 AM CDT 09/01/2018 10:39 AM CDT Damarisrj Clearyancelmo [facility] LAB - CHEMISTRY DELLGarrison THANIA Performing Organization Address City/[facility]/[place] [address], [place] [phone] * OPH OCT TEST SLU (06/08/2018 12:00 [...] AM CDT 06/07/2018 Narrative Resulting Agency Comment [facility] [address] [facility] [phone] Tessie Pritchard REVENUE AGENT-MATLAB DEVELOPER LAB - URINE C HEMISTRY ORDERABLES [facility] INSURANCE BILL [address] [place] [address] * (ABNORMAL) VITAMIN D 25-HYDROXY (06/07/2018 11:49 AM CDT) Only the most recent of2 resultswithin the time period is included. Vitamin D, 25 Hydroxy 8.9(L) 30.0 - 100.0 ng/mL [facility] INSURANCE BILL Comment: Vitamin D deficiency has been defined by the [place] of Medicine and an Endocrine Society practice guideline as a level of serum 25-OH vitamin D less than 20 ng/mL (1,2). The Endocrine Society went on to further define vitamin D insufficiency as a level between 21 and 29 ng/mL (2). 1. IOM ([place] of Medicine). 2010. Dietary reference intakes for calcium and D. [place]: The National Academies Press. 2. Heavenly MF, Carlton SANDOVAL, Clive BAUMANN, et al. Evaluation, treatment, and prevention of vitamin D deficiency: an Endocrine Society clinical practice guideline. JCEM. 2010; 96(2):1911-30. 06/07/2018 11:4 9 AM CDT 06/07/2018 Narrative Resulting Agency Comment [facility] [address] [facility] [phone] Tessie Dolan Macho REVENUE AGENT-MATLAB DEVELOPER LAB - EXTENSION WORKER RY ORDERABLES [facility] INSURANCE BILL [address] [place] [address] * (ABNORMAL) BASIC METABOLIC PANEL (CALCIUM TOTAL) [...] CDT 06/07/2018 Narrative Resulting Agency Comment [facility] [address] [facility] [phone] Tessie Pritchard REVENUE AGENT-MATLAB DEVELOPER LAB - EXTENSION WORKER RY ORDERABLES [facility] INSURANCE BILL [address] [place] [address] * DNA ANTIBODY DOUBLE STRANDED (05/28/2018 12:26 PM CDT) dsDNA Antibody 22 0 - 29 IU/mL 06/01/2018 12:57 PM CDT [facility] Comment: dsDNA Antibody Numeric Result Interpretation: 0 - 29 IU/mL: Negative 30 - 75 IU/mL: Borderline >75 IU/mL: Positive Blood BLOOD SPECIMEN / Unknown Lab Venipuncture / Unknown 05/28/2018 12:26 PM CDT 05/28/2018 12:35 PM CDT Es Thornton MD LAB - HEMATOLOGY ORD ERABLES [address] [phone] * (ABNORMAL) GLUCOSE - POINT OF CARE (05/28/2018 12:21 PM CDT) Only the most recent of24 resultswithin the time period is included. [facility] Glucose WB/POC 294(H) 70 - 115 mg/dL 05/28/2018 12:24 PM CDT [facility] Specimen Type Arterial/C apillary 05/28/2018 12:24 PM CDT [facility] Blood BLOOD SPECIMEN / Unknown 05/28/2018 12:21 PM CDT 05/28/2018 12:24 PM CDT Narrative [facility] - 05/28/2018 12:24 PM CDT MATRIX WORKER: ELISSA CAMARA Dion Arreola MD LAB - POINT OF CARE ORDERABLES [address] [phone] * CRYOGLOBULIN QUANTITATIVE (05/28/2018 12:14 PM CDT) [facility] Cryoglobulin Quantitative None Detected None Detected mg/dL 05/31/2018 11:10 AM CDT [facility] Blood BLOOD SPECIMEN / Unknown Lab Venipuncture / Unknown 05/28/2018 12:14 PM CDT 05/28/2018 12:31 PM CDT Es Thornton MD LAB - CHEMISTRY [facility] Performing Organization Address [facility]/ZIP Co de Phone Number [address] [phone] * HEPATITIS C AB SCREEN RFLX NAAT QUANT (05/28/2018 12:13 PM CDT) Hepatitis C Antibody Non-react javier Non-reac tive 05/28/2018 1:18 PM CDT [facility] Comment: Hepatitis C Antibody screen indicates [...] - CHEMISTRY [facility] Performing Organization Address [facility] Co de Phone Number [address] [phone] * NEUTROPHIL CYTOPLASMIC ANTIBODY IGG (05/28/2018 12:13 PM CDT) Only the most recent of2 resultswithin the time period is included. Pathologist [facility] ANCA IgG <1:20 <1:20 05/30/2018 3:16 PM CDT [facility] ([facility]) Comment: The ANCA IFA is <1:20; therefore, [...] collagen vascular disease or arthritis. Performed by [employer], [address] [place] [id number] [email or web address], Sahil Chin MD, Lab. Director Blood BLOOD SPECIMEN / Unknown Lab Venipuncture / Unknown 05/28/2018 12:13 PM CDT 05/28/2018 12:36 PM CDT Es Thornton MD LAB - SEROLOGY ORDER NAZ [facility] ([facility]) [address] * COMPLEMENT TOTAL (05/28/2018 12:13 PM CDT) Complement Total CH50 >60 >41 U/mL 05/31/2018 2:10 PM CDT [facility] ([facility]) Blood BLOOD SPECIMEN / Unknown Lab Venipuncture / Unknown 05/28/2018 12:13 PM CDT 05/28/2018 12:35 PM CDT Narrative [facility] ([facility]) - 05/31/2018 2:10 PM CDT Performed at: [facility] Lab[address] [id number] Lactation Nurse: Neil Maloney PhD, Phone: [phone] Es Thornton MD LAB - CHEMISTRY [facility] Performing Organization Address City/[facility]/ZIP Co de Phone Number [facility] ([facility]) [address] [place] [address] * SCLERODERMA 70 (SCL) ANTIBODY (05/28/2018 12:13 PM CDT) SCL-70 Antibody 4.3 0.0 - 19.9 Units 06/01/2018 12:57 PM CDT [facility] Comment: MOHSEN Antibody Numeric Result Interpretation: <20.0 Units: Negative 20.0 - 39.0 Units: Weakly Positive >39.0 Units: Positive Blood BLOOD SPECIMEN / Unknown Lab Venipuncture / Unknown 05/28/2018 12:13 PM CDT 05/28/2018 12:35 PM CDT Es Thornton MD LAB - CHEMISTRY [facility] [address] [phone] * HEPATITIS B SURFACE ANTIGEN W RFLX CONFIRMATION (05/28/2018 12:13 PM CDT) Hepatitis B Virus Surface Antigen Non-reacti ve Non-reacti ve 05/28/2018 1:17 PM CDT [facility] Blood BLOOD SPECIMEN / Unknown Lab Venipuncture / Unknown 05/28/2018 12:13 PM CDT 05/28/2018 12:35 PM CDT Es Thornton MD LAB - CHEMISTRY [facility] Performing Organization Address City/[facility]/ZIP Co de Phone Number [address] [phone] * PTH INTACT W/O CALCIUM (05/28/2018 12:12 PM CDT) Pathologist [facility] PTH Intact 49.1 15.0 - 65.0 pg/mL 05/28/2018 2:16 PM CDT [facility] Blood BLOOD SPECIMEN / Unknown Lab Venipuncture / Unknown 05/28/2018 12:12 PM CDT 05/28/2018 12:37 PM CDT Es Thornton MD LAB - CHEMISTRY [facility] [facility] [address] [phone] * ANGIOTENSIN CONVERTING ENZYME BLOOD (05/28/2018 12:12 PM CDT) Pathologist [facility] Angiotensin-Con verting Enzyme 60 14 - 82 U/L 05/31/2018 2:10 PM CDT [facility] ([facility]) Blood BLOOD SPECIMEN / Unknown Lab Venipuncture / Unknown 05/28/2018 12:12 PM CDT 05/28/2018 12:36 PM CDT Narrative [facility] ([facility]) - 05/31/2018 2:10 PM CDT Performed at: [facility] [id number] Lactation Nurse: Neil Maloney PhD, Phone: [phone] Es Thornton MD LAB - CHEMISTRY ORDE THANIA [facility] ([facility]) [address] [id number] * COMPLEMENT C4 (05/28/2018 12:12 PM CDT) Complement C4 40 15 - 57 mg/dL 05/28/2018 1:03 PM CDT [facility] Blood BLOOD SPECIMEN / Unknown Lab Venipuncture / Unknown 05/28/2018 12:12 PM CDT 05/28/2018 12:36 PM CDT Es Thornton MD LAB - SEROLOGY ORDER NAZ Performing Organization Address City/[facility]/ZIP Co de Phone Number [address] [phone] * COMPLEMENT C3 (05/28/2018 12:12 PM CDT) Complement C3 127 82 - 193 mg/dL 05/28/2018 1:03 PM CDT [facility] Blood BLOOD SPECIMEN / Unknown Lab Venipuncture / Unknown 05/28/2018 12:12 PM CDT 05/28/2018 12:36 PM CDT Es Thornton MD LAB - CHEMISTRY ORDE THANIA Performing Organization Address City/[facility]/ZIP Co de Phone Number [address] [phone] * US RETROPERITONEAL COMPLETE (05/26/2018 3:43 PM [...] Not Established mmol/L 05/26/2018 10:12 AM CDT [facility] Urine URINE SPECIMEN OBTAINED BY CLEAN CATCH PROCEDURE / Unknown Collection / Unknown 05/26/2018 9:44 AM CDT 05/26/2018 9:54 AM CDT Zach Morin MD LAB - URINE CHEMISTR Y ORDERABLES Performing Organization Address [facility] Co de Phone Number [address] [phone] * UREA NITROGEN URINE RANDOM (05/26/2018 9:44 AM CDT) Urea Nitrogen Random Urine 712 Not Established mg/dL 05/26/2018 10:54 AM CDT [facility] Urine URINE SPECIMEN OBTAINED BY CLEAN CATCH PROCEDURE / Unknown Collection / Unknown 05/26/2018 9:44 AM CDT 05/26/2018 10:42 AM CDT Ashish Mckee MD LAB - URINE CHEMISTR Y ORDERABLES Performing Organization Address [facility] de Phone Number [address] [phone] * CREATININE URINE RANDOM (05/26/2018 9:44 AM CDT) Creatinine Urine 85 Not Established mg/dL 05/26/2018 10:14 AM CDT [facility] Comment: Result obtained by dilution. Urine URINE SPECIMEN OBTAINED BY CLEAN CATCH PROCEDURE / Unknown Collection / Unknown 05/26/2018 9:44 AM CDT 05/26/2018 9:54 AM CDT Zach Morin MD LAB - URINE CHEMISTR Y ORDERABLES Performing Organization Address [facility] Co de Phone Number [address] [phone] * MAGNESIUM BLOOD (05/25/2018 9:29 PM CDT) Only the most recent of2 resultswithin the time period is included. Magnesium 1.8 1.6 - 2.6 mg/dL 05/25/2018 9:57 PM CDT [facility] Blood BLOOD SPECIMEN / Unknown Venipuncture / Unknown 05/25/2018 9:29 PM CDT 05/25/2018 9:35 PM CDT Albert Morejon MD LAB - CHEMISTRY [facility]ST[facility]TE[facility] [address] [place] [address], [place] [phone] * FLOW CYTOMETRY BODY FLUID (05/25/2018 3:00 PM CDT) Case Report Flow Cytometry Case: [id number] Authorizing Provider: Zach Morin MD Collected: 05/25/2018 03:00 PM Ordering Location: [address] Received: 05/25/2018 04:01 PM Pathologist: Chaz Arango MD Specimen: CSF 9 4:18 PM CDT [facility] Final Diagnosis Cerebrospinal fluid, flow cytometric immunophenotypic analysis: - No evidence of non Hodgkin lymphoma or high-grade myeloid neoplasm. - See interpretation. 9 4:18 PM CDT [facility] Flow Cytometry [...] flow cytometry specimen is reviewed for quality technician fiberglass purposes. Overall, the cerebrospinal fluid specimen shows no evidence of involvement by non Hodgkin lymphoma or a high-grade myeloid neoplasm. Correlation with clinical findings is required. MANAGER CUSTOMER/NW 9 4:18 PM CDT [facility] Flow Cytometry Results Differential Result Comment Flow Cell Count /uL 440 Total Viability % 100 Lymphocytes % 91 Dim CD45 Region % 1 Monocytes % 3 Granulocytes % 4 9 4:18 PM CDT [facility] Client Specimen ID # [id number] 9 4:18 PM [facility] Reason for test Blurry vision 368.8 9 4:18 PM T [facility] Number of [...] A Flow CD8 A Flow CD30 A [place]and+CD19+ A Lambda+CD19+ 9 4:18 PM T [facility] Disclaimer Test performed at [facility], [address] [place] [address], [address]. *The established laboratory minimum viability is 70%. [...] clinical testing. 9 4:18 PM [facility] Embedded Images 9 4:18 PM T [facility] Fluid CEREBROSPINAL FLUID SPECIMEN / Unknown Collection / Unknown 05/25/2018 3:00 PM CDT 05/25/2018 4:01 PM CDT Zach Morin MD LAB - PATHOLOGY/CYTO LOGY ORDERABLES [facility] [address] [place] [address]. [place] [address], [place] [phone] * PATHOLOGY SMEAR BODY FLUID (05/25/2018 11:30 AM CDT) Pathology Diff Review DIFFERENTIAL REVIEW - CONFIRMED DIFFERENTIAL REVIEW - CONFIRMED 05/25/2018 2:49 PM T [facility] Comment: Clinical history: Ms. Smith is a 38 [id number] with a history of obesity, DM, and [...] Morin MD LAB - PATHOLOGY/CYTO LOGY ORDERABLES [address] [phone] * NEUROMYELITIS OPTICA APQ4 IGG CSF W/RFLX (05/25/2018 11:30 AM CDT) Neuromyelitis Optica/AQP4 IgG CSF < 1:1 05/28/2018 5:16 PM CDT [facility] ([facility]) Comment: Aquaporin-4 Receptor Antibody, IgG is not [...] diagnostic for NMO. See Compliance Statement B: [email or web address] Performed by [email or web address], [address] [place] [id number] [email or web address], Sahil Chin MD, Lab. Director Cerebral spinal fluid CEREBROSPINAL FLUID SPECIMEN / Unknown Collection / Unknown 05/25/2018 11:30 AM CDT 05/25/2018 11:52 AM CDT Zach Morin MD LAB - BODY FLUID ORD ERABLES [facility]) [address] [place] [address] * DIFFERENTIAL MANUAL FLUID (05/25/2018 11:30 AM CDT) Segs % Fluid 7 % 05/25/2018 1:01 PM CDT [facility] Lymphocytes % Fluid 68 % 05/25/2018 1:01 PM CDT [facility] Monocytes % Fluid 4 % 05/25/2018 1:01 PM CDT [facility] Atypical Lymphs % Fluid 21 % 05/25/2018 1:01 PM CDT [facility] Cerebral spinal fluid CEREBROSPINAL FLUID SPECIMEN / Unknown Collection / Unknown 05/25/2018 11:30 AM CDT 05/25/2018 11:49 AM CDT Zach Morin MD LAB - BODY FLUID ORD ERABLES Performing Organization Address [facility]/ZIP Co de Phone Number [address] [phone] * GRAM STAIN (LAB ORDERED) (05/25/2018 11:30 AM CDT) Gram Stain Moderate White blood cells 05/25/2018 8:02 PM CDT [facility] Gram Stain No organisms seen 05/25/2018 8:02 PM CDT [facility] Microbiology Collection / Unknown 05/25/2018 11:30 AM CDT 05/25/2018 11:52 AM CDT Zach Morin MD LAB - MICROBIOLOGY O RDERABLES Performing Organization Address City/[facility]/ZIP Co de Phone Number [address] [phone] * CULTURE CSF+GRAM STAIN (05/25/2018 11:30 AM CDT) Culture No growth ESTEVAN 06/01/2018 3:34 AM CDT [facility] Gram Stain Rare Polymorphonuclear cells 06/01/2018 3:34 AM CDT [facility] Gram Stain No organisms seen 019 3:34 AM CDT [facility] Cerebral spinal fluid CEREBROSPINAL FLUID SPECIMEN / Unknown Collection / Unknown 05/25/2018 11:30 AM CDT 05/25/2018 11:52 AM CDT Zach Morin MD LAB - MICROBIOLOGY O RDMANISHA Performing Organization Address City/[facility]/ZIP Co de Phone Number [facility] [address] [place] [address], [place] [phone] * HERPES SIMPLEX 1+2 PCR CSF (05/25/2018 11:30 AM CDT) Herpes Simplex Virus 1 PCR CSF Not detected Not detected 05/25/2018 9:44 PM CDT [facility] Herpes Simplex Virus 2 PCR CSF Not detected Not detected 05/25/2018 9:44 PM CDT [facility] Microbiology CEREBROSPINAL FLUID SPECIMEN / Unknown Collection / Unknown 05/25/2018 11:30 AM CDT 05/25/2018 11:52 AM CDT Zach Morin MD LAB - MICROBIOLOGY O NARDA Performing Organization Address City/[facility] Co de Phone Number [facility] [address] [place] [address], [place] [phone] * ANGIOTENSIN CONVERTING ENZYME CSF (05/25/2018 11:30 AM CDT) Angiotensin-Convert ing Enzyme CSF 0.9 0.0 - 2.5 U/L 05/28/2018 8:50 PM CDT [facility] ([facility]) Comment: This test was developed and its performance characteristics determined by [employer]. The U.S. Food and Drug Administration has not approved or cleared this test; however, FDA clearance or approval is not currently required for clinical use. The results are not intended to be used as the sole means for clinical diagnosis or patient management decisions. Performed by [employer], [address] [place] [id number] www.[employer], Sahil Chin MD, Lab. Director Cerebral spinal fluid CEREBROSPINAL FLUID SPECIMEN / Unknown Collection / Unknown 05/25/2018 11:30 AM CDT 05/25/2018 11:52 AM CDT Zach Morin MD LAB - BODY FLUID ORD ERABLES Performing Organization Address [facility] Co de Phone Number [facility]) [address] [place] [address] * MYELIN BASIC PROTEIN CSF (05/25/2018 11:30 AM CDT) Myelin Basic Protein 1.62 0.00 - 5.50 ng/mL 05/28/2018 7:09 PM CDT [facility] ([facility]) Comment: INTERPRETIVE INFORMATION: Myelin Basic Protein Test developed and characteristics determined by [facility]. See Compliance Statement D: [employer]/CS Performed by [facility] [employer], [address] [place] [address] www.[employer], Sahil Chin MD, Lab. Director Cerebral spinal fluid CEREBROSPINAL FLUID SPECIMEN / Unknown Collection / Unknown 05/25/2018 11:30 AM CDT 05/25/2018 11:52 AM CDT Zach Morin MD LAB - BODY FLUID ORD ERABLES Performing Organization Address [facility] Co de Phone Number [facility]) [address] [place] [address] * CELL COUNT W DIFFERENTIAL CSF (05/25/2018 11:30 AM CDT) Color Fluid Colorless Colorless, Straw 05/25/2018 12:51 PM CDT [facility] Clarity Fluid Clear Clear 05/25/2018 12:51 PM CDT [facility] Volume Fluid 4.0 mL 05/25/2018 12:51 PM CDT [facility] WBC Calculation Fluid 498 /uL 05/25/2018 12:51 PM CDT [facility] RBC Calculation 0 /uL 9 12:51 PM CDT [facility] Xanthochromia Fluid Negative Negative 05/25/2018 12:51 PM CDT [facility] Differential Manual Differential to follow. 05/25/2018 12:51 PM CDT [facility] Cerebral spinal fluid CEREBROSPINAL FLUID SPECIMEN / Unknown Collection / Unknown 05/25/2018 11:30 AM CDT 05/25/2018 11:49 AM CDT Zach Morin MD LAB - BODY FLUID ORD ERABLES Performing Organization Address [facility] Co de Phone Number [address] [phone] * PROTEIN CSF (05/25/2018 11:30 AM CDT) Protein CSF 20 15 - 45 mg/dL 05/25/2018 12:14 PM CDT [facility] Cerebral spinal fluid CEREBROSPINAL FLUID SPECIMEN / Unknown Collection / Unknown 05/25/2018 11:30 AM CDT 05/25/2018 11:51 AM CDT Zach Morin MD LAB - BODY FLUID ORD ERABLES Performing Organization Address [facility] Co de Phone Number [address] [phone] * (ABNORMAL) GLUCOSE CSF (05/25/2018 11:30 AM CDT) Glucose CSF 147(H) 40 - 70 mg/dL 05/25/2018 12:10 PM CDT [facility] Cerebral spinal fluid CEREBROSPINAL FLUID SPECIMEN / Unknown Collection / Unknown 05/25/2018 11:30 AM CDT 05/25/2018 11:54 AM CDT Zach Morin MD LAB - BODY FLUID ORD ERABLES Performing Organization Address [facility] Co de Phone Number [address] [phone] * SYPHILIS ANTIBODY CASCADING REFLEX (05/25/2018 4:03 AM CDT) Treponema pallidum Antibody Non-react javier Non-react javier 05/25/2018 5:33 AM CDT [facility] Comment: No Laboratory evidence of syphilis infection. Note: Circulating antibodies may be low or undetectable in early infection. If recent exposure is suspected, re-draw sample in 2-4 weeks and repeat testing. Blood BLOOD SPECIMEN / Unknown Lab Venipuncture / Unknown 05/25/2018 4:03 AM CDT 05/25/2018 4:43 AM CDT Namita Raymond MD LAB - SEROLOGY ORDER NAZ Performing Organization Address City/[facility]/ZIP Co de Phone Number [facility] [address] [phone] * NEUROMYELITIS OPTICA ANTIBODY (05/25/2018 4:03 AM CDT) NMO Antibody IgG <1.5 0.0 - 3.0 U/mL 05/28/2018 5:08 PM CDT [facility] ([facility]) Comment: Negative: 0.0 - 3.0 Positive: >3.0 Blood BLOOD SPECIMEN / Unknown Lab Venipuncture / Unknown 05/25/2018 4:03 AM CDT 05/25/2018 4:43 AM CDT Narrative [facility] ([facility]) - 05/28/2018 5:08 PM CDT Performed at: [address] [place] [address] [id number] Lactation Nurse: Negro Sullivan MD, Phone: [phone] Namita Raymond MD LAB - SEROLOGY ORDER NAZ Performing Organization Address City/[facility] Co de Phone Number [facility] ([facility]) [address] [phone] * HCG BETA BLOOD QUANTITATIVE (05/25/2018 4:03 AM CDT) Beta-hCG Total Quantitative <2 <5 mIU/mL 05/25/2018 5:18 AM CDT [facility] Comment: HCG Numeric Result Interpretation: Non- Females: < 5 mIU/mL Post-Menopausal Females: < 7 mIU/mL Blood BLOOD SPECIMEN / Unknown Lab Venipuncture / Unknown 05/25/2018 4:03 AM CDT 05/25/2018 4:43 AM CDT Monroe Wood MD LAB - CHEMISTRY [facility] [facility] Organization Address City/State/ZIP Co de Phone Number [address] [phone] * MRI ORBITS OR FACE WWO CONTRAST (05/24/2018 9:23 PM CDT) Anatomical Region Laterality Modality Head Magnetic Resonan ce 05/25/2018 7:38 AM CDT Impressions 05/25/2018 9:17 AM CDT IMPRESSION: 1. Unremarkable MRI findings of the brain and orbits. IDr. PRISCA have personally reviewed and interpreted this examination/study. This report was electronically signed by PRISCA SEAED on 05/25/2018 9:17 AM . Narrative 05/25/2018 [...] ve Non-react javier 05/24/2018 5:54 PM CDT [facility] Comment: Neither HIV-1 p24 Antigen nor HIV-1/HIV-2 Antibodies are detected. Blood BLOOD SPECIMEN / Unknown Venipuncture / Unknown 05/24/2018 5:08 PM CDT 05/24/2018 5:16 PM CDT Namita Raymond MD LAB - HEMATOLOGY ORD ERABLES [facility] [address] [place] [address] * Visual Almazan (05/24/2018 2:58 PM CDT) [...] Albumin Random Urine >1,540.0 Not Established mcg/mL [facility] Urine specimen (specimen) 10/30/2015 12:30 PM CDT 10/30/2015 12:48 PM CDT Tessie Pritchard APRN-MATLAB DEVELOPER LAB - URINE C HEMISTRY ORDERABLES [address] [phone] * LIPID PROFILE (10/30/2015 12:18 PM CDT) Only the most recent of2 resultswithin the time period is included. Cholesterol Total 152 <200 mg/dL [facility] HDL 56 >40 mg/dL [facility] Comment: ATP III Classification of HDL Cholesterol: <40 mg/dL: Considered a major risk factor. >60 mg/dL: Considered a negative risk factor. LDL Calculated 76 <100 mg/dL [facility] Comment: ATP III Classification of LDL Cholesterol: <100 mg/dL: Optimal 100 - 129 mg/dL: Near Optimal/Above Optimal 130 - 159 mg/dL: Borderline High 160 - 189 mg/dL: High >190 mg/dL: Very High Triglycerides 98 <150 mg/dL [facility] Comment: ATP III Classification of Triglycerides: <150 mg/dL: Normal 150 - 199 mg/dL: Borderline High 200 - 400 mg/dL: High >500 mg/dL: Very High Blood specimen (specimen) BLOOD SPECIMEN / Unknown 10/30/2015 12:18 PM CDT 10/30/2015 12:48 PM CDT Tessie Dolan Macho MUNOZ-MATLAB DEVELOPER LAB - EXTENSION WORKER RY ORDERABLES [address] [phone] * GLUCOSE - POINT OF CARE (AMB) [facility] (04/10/2015 9:21 AM RN COMMUNITY) Only the most recent of2 resultswithin the time period is included. Glucose POCT 214 mg/dL [facility] Capillary blood specimen (specimen) 04/10/2015 9:21 AM RN COMMUNITY Tessie Magdaleno Pritchard APRN-MATLAB DEVELOPER LAB - POINT O F CARE ORDERABLES Performing Organization Address [facility]/ZIP Co de Phone Number [facility] * INSULIN ANTIBODY (09/12/2014 3:01 PM CDT) Insulin Antibody <5.0 uU/mL [facility] ([facility]) Comment: This test is also known as insulin autoantibody or IAA. Reference Range: <5.0 Negative > or = 5.0 Positive Blood specimen (specimen) BLOOD SPECIMEN / Unknown 09/12/2014 3:01 PM CDT 09/12/2014 3:35 PM CDT Narrative [facility] ([place]) - 09/21/2014 6:15 AM CDT Performed at: 01 - [facility] [address] [place] [address] [id number] Lactation Nurse: Demarco Henderson MD, Phone: [phone] Tessie Pritchard APRN-MATLAB DEVELOPER LAB - EXTENSION WORKER RY ORDERABLES [facility] ([place]) * GLUTAMIC ACID DECARBOXYLASE ([place]AYLEY) ANTIBODY (09/12/2014 3:01 PM CDT) HAYLEY-65 <1.0 0.0 - 1.5 U/mL [facility] ([facility]) Blood specimen (specimen) BLOOD SPECIMEN / Unknown 09/12/2014 3:01 PM CDT 09/12/2014 3:35 PM CDT Narrative [facility] ([facility]) - 09/15/2014 5:15 PM CDT Performed at: [address] [place] [address] [id number] Lactation Nurse: Sekou Dent MD, Phone: [phone] Tessie Pritchard REVENUE AGENT-[facility] LAB - SEROLOG Y ORDERABLES Performing Organization Address City/[facility] Co de Phone Number [facility]) * TISSUE TRANSGLUTAMINASE AB IGG (06/29/2014 4:51 PM CDT) [facility] TTG Antibody IgG 2 0 - 5 U/mL [facility]) Comment: Negative 0 - 5 Weak Positive 6 - 9 Positive >9 Blood specimen (specimen) BLOOD SPECIMEN / Unknown 06/29/2014 4:51 PM CDT 06/29/2014 5:26 PM CDT Narrative [facility]) - 07/01/2014 3:12 PM CDT Performed at: [address] [place] [address] [id number] Lactation Nurse: Clemente Wiley PhD, Phone: [phone] Finn Clemens MD LAB - CHEMISTRY [place] [facility] ([facility]) * C-PEPTIDE (06/29/2014 4:51 PM CDT) [facility] C-Peptide 1.1 1.1 - 4.4 ng/mL [facility]) Comment:C-Peptide reference interval is for fasting patients. Blood specimen (specimen) BLOOD SPECIMEN / Unknown 06/29/2014 4:51 PM CDT 06/29/2014 5:26 PM CDT Narrative [facility] ([place]) - 07/02/2014 6:41 AM CDT Performed at: 01 - [address] [id number] Lactation Nurse: Clemente Wiley PhD, Phone: [phone] Finn Clemens MD LAB - CHEMISTRY [place] [facility] Performing Organization Address City/[facility]/ZIP Co de Phone Number [facility]) * (ABNORMAL) HEMOGLOBIN A1C (06/29/2014 4:51 PM CDT) Hemoglobin A1c 11.1(H) 4.4 - 6.3 % [facility] Estimated Average Glucose 272 mg/dL [facility] Comment: HbA1c Interpretation: Treatment target values [...] Clemens MD LAB - CHEMISTRY [facility] [facility] [address] [phone] * VITAMIN B12 (06/29/2014 4:51 PM CDT) Vitamin B12 520 213 - 816 pg/mL [facility] Blood specimen (specimen) BLOOD SPECIMEN / Unknown 06/29/2014 4:51 PM CDT 06/29/2014 5:26 PM CDT Finn Clemens MD LAB - CHEMISTRY ORDE RABLES [facility] Organization Address City/State/ZIP Co de Phone Number [facility] [address] [place] [address], [place] [phone] Care Teams Balancer Scale Relationship Specialty Start Date End Date Jessie Dickson, REVENUE AGENT-MATLAB DEVELOPER [address], [place] [phone] PCP - General 06/30/14
--- OUTSIDE RECORDS SUMMARY | 2024-05-05 14:58 | XMS_ITS | Referral Summary ---
Author Organization [facility] Address [address] [place] [address] Care Team Providers Care Trans Router Name Role Phone Jessie Dickson PETROLEUM ANALYST-CONDUCTOR AND ENGINEER Primary Care Pro vider Source Comments [facility],non-owned Affiliates and Associated Physician Practices is amultiple site organization consisting of ambulatory clinics and hospital sitesin [place], [place], [place] and [place]. This disclosure is being madepursuant to the Care Everywhere program and may not contain all information available regarding this patient. Last updated 17.[facility] Allergies Active Allergy Reactions Criticality Noted Date [...] 200 Each 11 06/09/2018 Active ergocalciferol (DRISDOL) 20523 units capsule Take 1 capsule by mouth [...] procedure) 2 tablet 01/21/2022 Active HYDROcodone-acetamino phen (Gill) 5-325 MG tablet Take 1 (one) tablet [...] Comments Blood Pressure 145/85 02/05/2022 12:[address] irizarry aware; ok to d/cv Pulse 74 02/05/2022 11:55 AM DOCUMENT CONTROL MANAGER Temperature 36.8 C (98.2 F) 09/13/2019 8:22 AM CDT Respiratory Rate 12 02/05/2022 11:5 0 AM DOCUMENT CONTROL MANAGER Oxygen Saturation 100% 02/05/2022 11: 55 AM DOCUMENT CONTROL MANAGER Inhaled Oxygen Concentration - - Weight 108.9 [...] / Unknown 11/01/2018 10:11 AM CDT Tessie CHO LAB - POINT O F CARE ORDERABLES * HEPATITIS C AB SCREEN RFLX NAAT QUANT (05/28/2018 12:13 PM CDT) Hepatitis C Antibody Non-react javier Non-reac tive 05/28/2018 1:18 PM CDT [facility] Comment: Hepatitis C Antibody [...] Thornton MD LAB - CHEMISTRY [place] [id number] [address] [phone] * HIV-1 HIV-2 ANTIGEN/ANTIBODY (05/24/2018 5:08 PM CDT) HIV Antigen/Antibod y 1 & 2 Non-reacti ve Non-react javier 05/24/2018 5:54 PM CDT [facility] Comment: Neither HIV-1 p24 Antigen nor HIV-1/HIV-2 Antibodies are detected. Blood BLOOD SPECIMEN / Unknown Venipuncture / Unknown 05/24/2018 5:08 PM CDT 05/24/2018 5:16 PM CDT Namita Raymond MD LAB - HEMATOLOGY ORD ERABLES [address] [phone] from Last 3 Months or Most Recently Relevant to Health Maintenance Advance Directives * Full Code (Latest Code Status on File) Date Activated Date Inactivated Comments 05/25/2018 12:57 AM 05/28/2018 5:22 PM * Full Code Date Activated Date Inactivated Comments 05/24/2018 6:24 PM 05/25/2018 12:57 AM Care Teams Trans Router Relationship Specialty Start Date End Date Jessie Dickson APRN-JANET [address] [place] [phone] PCP - General 06/30/14
--- OUTSIDE RECORDS SUMMARY | 2024-05-05 14:58 | XMS_ITS | Data Portability ---
[facility] Organization [facility] Address [address] [place] [address] Care Team Providers Care Care Navigator Name Role Phone DEYVI ROSALES OTHER JESSIE CROCKETT Blanching Machine Operator [facility] RHEUMATOLOGY Wire Coating Machine Operator BETH MARTE Animal Physiology Teacher ELÍAS MIX Wire Coating Machine Operator Assessment No assessment recorded. Plan of Treatment Reminders Order Date Submit Date Provider Last Modified By Organization Details Last Modified Time Details Appointments None recorded. Lab HbA1c (hemoglobin A1c), blood 2023 024 macho In-Office Order, Internal Use Only DO Not Attach Compendium DO Not Attach Compendium, Do Not Delete/merge, [id number] 4 12:47:19 glucose, fingerstick , blood 2023 024 macho In-Office Order, Internal Use Only DO Not Attach Compendium DO Not Attach Compendium, Do Not Delete/merge, [id number] 4 12:47:21 CMP, serum or plasma 2023 024 MAHAMED [facility], [address] [place], [place] [address]jacquie Alfaro, Suite [facility], [place], [address], 4 23:07:49 albumin/cre atinine, mass ratio, urine 2023 024 [facility], [facility] [address], [address], [place], [address], 4 10:15:48 TSH, ultra-sensi tive, serum 2023 024 [facility], [address] [facility] [address], [address], [place], [address], 4 10:15:48 CBC 2023 024 MAHAMED [facility], [address] [facility] [address], [address], [place], [address], 4 23:07:50 lipid panel, serum 2023 024 [facility], [address] [facility] [address], [address], [place], [address], 4 23:07:48 vitamin D, 25-hydroxy, total, serum 2023 024 MA[facility]AMED [facility], [address] [facility] [address], [address], [place], [address], 4 10:15:50 HbA1c (hemoglobin A1c), blood 2022 023 [email or web address] In-Office Order, Internal Use Only DO Not Attach Compendium DO Not Attach Compendium, Do Not Delete/merge, [id number] 3 15:31:49 glucose, fingerstick , blood 2022 023 [email or web address] In-Office Order, Internal Use Only DO Not Attach Compendium DO Not Attach Compendium, Do Not Delete/merge, [id number] 3 15:31:48 Referral neurologist referral - Head CT showed small region of decreased attenuation at left occipital lobe suspicious for relatively recent, potentially acute infarct which is new since 01/06/2022. The patient had no focal deficits or weakness. 2022 023 MAHAMED Not available 3 11:17:15 Procedures None recorded. Surgeries None recorded. Imaging MAMMO, screening, bilateral 2022 023 [email or web address] Not available 4 11:11:09 Medication Orders gabapentin 100 mg capsule 2023 024 [facility]2510, [address] [place], [address], 4 20:08:16 fluticasone propionate 50 mcg/actuati on nasal spray,suspe nsion 2023 024 [facility]2510, [address] [place], [address], 4 12:47:15 montelukast 10 mg tablet 2023 024 [facility] [address] [place], [address], 4 12:47:16 Kym Allergy 180 mg tablet 2023 024 [facility] [address] [place], [address], 4 12:47:15 Colace 100 mg capsule 2023 024 [facility] #2510, [address] [place], [address], 4 12:47:15 Lantus Solostar U-100 Insulin 100 unit/mL (3 mL) subcutaneou s pen 2023 024 [facility] #2510, [address] [place], [address], 4 12:47:15 OneTouch Ultra Test strips 2023 024 [facility] #2510, [address] [place], [address], 4 15:31:16 gabapentin 100 mg capsule 2023 024 [facility] [address] [place], [address], 4 12:47:15 Diflucan 150 mg tablet 2023 024 [facility] [address] [place] [address], [address], 4 12:47:15 Colace 100 mg capsule 2022 023 [facility]2510, [address] [place] [address], [address], 3 15:32:12 polyethylen e glycol 3350 17 gram/dose oral powder 2022 023 [facility] [address] [place] [address], [address], 3 20:15:56 fluticasone propionate 50 mcg/actuati on nasal spray,suspe nsion 2022 023 [facility] [address] [place] [address], [address], 3 15:32:14 montelukast 10 mg tablet 2022 023 [facility] [address] [place] [address], [address], 3 15:32:14 Kym Allergy 180 mg tablet 2022 023 [facility]2510, [address] [place] [address], [address], 3 15:32:13 Lantus Solostar U-100 Insulin 100 unit/mL (3 mL) subcutaneou s pen 2022 023 [facility] [address] [place], [address], 3 15:32:15 Admelog SoloStar U-100 Insulin lispro 100 unit/mL subcutaneou s pen 2022 024 [facility] [address] [place], [address], 4 12:43:37 aspirin 81 mg tablet,juan yed release 2022 023 [facility] [address] [place], [address], 3 14:50:06 Lipitor 80 mg tablet 2022 023 [facility] [address] [place], [address], 3 14:56:45 Patient TargetsNo targets recorded. Patient Instructions Encounter Date Encounter Id Patient Instructions Last Modified By Organization Details Last Modified Time 06/11/2022 [id number] A healthy lifest yle: care instructions yarauz [...] dialysis yarauz Not available 06/11/2022 15:17:16 10/06/2022 [id number] allergies: care instructions yarauz Not available 10/06/2022 [...] medicine yarauz Not available 10/06/2022 15:08:09 02/03/2023 [id number] influenza (flu) vaccine: care instructions yarauz Not [...] diet see dentist every 6 months see online journalist every 1-2 years vaccine yarauz Not available 02/03/2023 12:29:16 2023 [id number] allergies: care instructions yarauz Not available 2023 [...] medicine yarauz Not available 2023 12:31:18 09/08/2023 [id number] A healthy lifest yle: care instructions Not available 09/08/2023 20:08:14 Consider use of [...] DO Not Attach Compendium, Do Not Delete/merge, [id number] 10/06/2022 14:28:33 10/07/19 23 10/06/2022 gluco se, finge rstic k, blood Blood Glucose: mg/dl 162 Not Available In-Off ice Order Internal Use Only DO Not Attach Compendium DO Not Attach Compendium, Do Not Delete/merge, [id number] 10/06/2022 14:28:35 03/12/19 24 2023 LIPID PANEL cholesterol, total 171 mg/dL 100-19 9 Not Available [facility] [address] [place], [address], 2023 23:07:48 03/12/19 24 2023 LIPID PANEL triglyceride s 78 mg/dL 0-149 Not Available [facility] Department [address] [place], [address], 2023 23:07:48 03/12/19 24 2023 LIPID PANEL HDL cholesterol 70 mg/dL 40-999 Not Available [facility] Department [address] [place], [address], 2023 23:07:48 03/12/19 24 2023 LIPID PANEL VLDL cholesterol dwayne 16 mg/dL 5-40 Not Available [facility] Department [address] [place], [address], 2023 23:07:48 03/12/19 24 2023 LIPID PANEL LDL chol calc (nih) 96 mg/dL 0-99 Not Available [facility] Department [address] [place], [address], 2023 23:07:48 03/12/19 24 2023 COMP. METAB OLIC PANEL (14) glucose 101 mg/dL 70-99 above high normal Not Available [facility] [address] [place] [address], [address], 2023 23:07:49 03/12/19 24 2023 COMP. METAB OLIC PANEL (14) BUN 46 mg/dL 6-24 above high normal Not Available [facility] [address] [place], [address], 2023 23:07:49 03/12/19 24 2023 COMP. METAB OLIC PANEL (14) creatinine 12.18 mg/dL 0.76-1 .27 panic high RESUL TS VERIF IED AND MCCLENDON D TO DR MAYRA TALLEY ON BY Jesse bazzi, CPT AT 2108 ON 03/12. Not Available [facility] [address] [place], [address], 2023 23:07:49 03/12/19 24 2023 COMP. METAB [...] disre tao that value . Not Available [facility] [address] [place] [address], [address], 2023 23:07:49 03/12/19 24 2023 COMP. METAB OLIC PANEL (14) BUN/creatini ne ratio 4 9-23 below low normal Not Available [facility] [address] [place], [address], 2023 23:07:49 03/12/19 24 2023 COMP. METAB OLIC PANEL (14) sodium 142 mmol/ L 134-14 4 Not Available [facility] [address] [place] [address], [address], 2023 23:07:49 03/12/19 24 2023 COMP. METAB OLIC PANEL (14) potassium 4.6 mmol/ L 3.5-5. 2 Not Available [facility] [address] [place] [address], [address], 2023 23:07:49 03/12/19 24 2023 COMP. METAB OLIC PANEL (14) chloride 102 mmol/ L 96-106 Not Available [facility] [address] [place] [address], [address], 2023 23:07:49 03/12/19 24 2023 COMP. METAB OLIC PANEL (14) carbon dioxide, total 26 mmol/ L 20-29 Not Available [facility] [address] [place] [address], [address], 2023 23:07:49 03/12/19 24 2023 COMP. METAB OLIC PANEL (14) calcium 9.6 mg/dL 8.7-10 .2 Not Available [facility] [address] [place] [address], [address], 2023 23:07:49 03/12/19 24 2023 COMP. METAB OLIC PANEL (14) protein, total 7.0 g/dL 6.0-8. 5 Not Available [facility] [address] [place] [address], [address], 2023 23:07:49 03/12/19 24 2023 COMP. METAB OLIC PANEL (14) albumin 3.7 g/dL 3.9-4. 9 below low normal Not Available [facility] [address] [place] [address], [address], 2023 23:07:49 03/12/19 24 2023 COMP. METAB OLIC PANEL (14) globulin, total 3.3 g/dL 1.5-4. 5 Not Available [facility] [address] [place] [address], [address], 2023 23:07:49 03/12/19 24 2023 COMP. METAB OLIC PANEL (14) A/G ratio 1.0 1.2-2. 2 below low normal Not Available [facility] [address] [place] [address], [address], 2023 23:07:49 03/12/19 24 2023 COMP. METAB OLIC PANEL (14) bilirubin, total 0.2 mg/dL 0.0-1. 2 Not Available [facility] [address] [place] [address], [address], 2023 23:07:49 03/12/19 24 2023 COMP. METAB OLIC PANEL (14) alkaline phosphatase 161 IU/L 44-121 above high normal Not Available [facility] [address] [place] [address], [address], 2023 23:07:49 03/12/19 24 2023 COMP. METAB OLIC PANEL (14) AST (SGOT) 17 IU/L 0-40 Not Available [facility] [address] [place], [address], 2023 23:07:49 03/12/19 24 2023 COMP. METAB OLIC PANEL (14) ALT (SGPT) 15 IU/L 0-32 Not Available [facility] [address] [place], [address], 2023 23:07:49 03/12/19 24 2023 CBC, NO DIFFE RENTI AL/PL ATELE T WBC 9.4 x10e3 /uL 3.4-10 .8 Not Available [facility] [address] [place], [address], 2023 23:07:50 03/12/19 24 2023 CBC, NO DIFFE RENTI AL/PL ATELE T RBC 4.11 x10e6 /uL 3.77-5 .28 Not Available [facility] [address] [place], [address], 2023 23:07:50 03/12/19 24 2023 CBC, NO DIFFE RENTI AL/PL ATELE T hemoglobin 10.9 g/dL 11.1-1 5.9 below low normal Not Available [facility] [address] [place], [address], 2023 23:07:50 03/12/19 24 2023 CBC, NO DIFFE RENTI AL/PL ATELE T hematocrit 36.5 % 34.0-4 6.6 Not Available [facility] [address] [place], [address], 2023 23:07:50 03/12/19 24 2023 CBC, NO DIFFE RENTI AL/PL ATELE T MCV 89 fL 79-97 Not Available [facility] [address] [place], [address], 2023 23:07:50 03/12/19 24 2023 CBC, NO DIFFE RENTI AL/PL ATELE T MCH 26.5 pg 26.6-3 3.0 below low normal Not Available [facility] [address] [place], [address], 2023 23:07:50 03/12/19 24 2023 CBC, NO DIFFE RENTI AL/PL ATELE T MCHC 29.9 g/dL 31.5-3 5.7 below low normal Not Available [facility] [address] [place], [address], 2023 23:07:50 03/12/19 24 2023 CBC, NO DIFFE RENTI AL/PL ATELE T RDW 13.8 % 11.5-1 4.5 Not Available [facility] [address] [place], [address], 2023 23:07:50 03/12/19 24 2023 CBC, NO DIFFE RENTI AL/PL ATELE T NRBC 0 % 0-0 Not Available [facility] [address] [place], [address], 2023 23:07:50 03/12/19 24 03/13/2023 ALBUM IN/CR EATIN INE RATIO ,URIN E creatinine, urine 104.7 mg/dL notest ab. Not Available [facility] ([facility]) [address] [facility], [place], [address], 03/13/2023 10:15:47 03/12/19 24 03/13/2023 ALBUM IN/CR EATIN INE RATIO ,URIN E albumin, urine 511.4 ug/mL notest ab. Resul ts confi rmed on dilut ion. Not Available [facility] ([facility]) [address] [facility], [place], [address], 03/13/2023 10:15:47 03/12/19 24 03/13/2023 ALBUM IN/CR EATIN INE RATIO ,URIN E alb/creat ratio 488 mg/g_ creat 0-29 above high normal Kimberly l: 0 - 29 Moder ately incre ased: 30 - 300 Sever naima incre ased: >300 Not Available [facility] ([facility]) [address] [facility], [place], [address], 03/13/2023 10:15:47 03/12/19 24 03/13/2023 TSH RFX ON ABNOR MAL TO FREE T4 TSH 2.130 uIU/m L 0.450- 4.500 Not Available [facility] ([facility]) [address] [facility], [place], [address], 03/13/2023 10:15:48 03/12/19 24 03/13/2023 VITAM IN [...] D. Leobardo karimi DC: The [facility] Press . 2. Jarrett boswell MF, Hailee burgess [place], Alma Delia off-F errar i BAUMANN, et al. Evalu ation , treat ment, and preve ntion of vitam in D defic iency : an Endoc rine Socie ty clini dwayne pract ice guide line. JCEM. 2010; 96(7) :1911 -30. Not Available [facility] ([facility]) [address], [place], [address], 03/13/2023 10:15:49 03/12/19 24 2023 HbA1c (hemo globi n A1c), blood HbA1c 6.4 Not Available In-Office Order Internal Use Only DO Not Attach Compendium DO Not Attach Compendium, Do Not Delete/merge, [id number] 2023 11:51:02 03/12/19 24 2023 gluco se, finge rstic k, blood Blood Glucose: mg/dl 178 Not Available In-Off ice Order Internal Use Only DO Not Attach Compendium DO Not Attach Compendium, Do Not Delete/merge, [id number] 2023 11:51:04 06/16/19 23 06/15/2022 XR, abdom en No observ ation record ed. [address] [facility], [place], [address], 10/06/2022 15:11:10 06/16/19 23 06/14/2022 CT, abdom en + pelvi s, w/o contr ast No observ ation record ed. [address], [place], [address], 10/06/2022 15:11:10 11/02/19 23 11/01/2022 XR, chest , 1 view No observ ation record ed. [address], [place], [address], 11/05/2022 17:56:22 01/10/20 23 12/25/2022 MRI, abdom en + pelvi s, w/wo contr ast No observ ation record ed. [facility] - Gynecologic Oncology [address] [place] [address], [address], 01/12/2023 10:36:39 03/19/19 24 03/17/2023 MAMMO , scree lexx, bilat eral No observ ation record ed. [facility] Him Department [address], [place], [address], 03/24/2023 14:16:33 06/19/1906/19/2023 US, suyapale x, arter ial, upper extre mity No observ ation record ed. [facility] [address], [place], [address], 07/02/2023 11:53:57 Result Notes None recorded. Problems Name Problem SNOMED Code Status Onset Date Resolution Date Notes Provider Name and Address Organization Details Recorded Time Hyperten sive disorder 10560400 Active 2018 Giselle remy [place] null, [place] [facility] 2 10:42:15 Chronic kidney disease stage 3 603343368 Completed 201804/18/2021 follows with Ivonne Marte at [facility] Danica Alvarez RN [place] [facility] 2 12:05:25 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 775551834 Active 2021 Giselle rem[place] [facility] 2 10:41:58 Vitamin D deficien cy 49252929 Active 2021 G[place]elle [place] [facility] 2 10:42:32 Family history of malignan t neoplasm of breast in first degree relative 466781632 Active 2021 KRISTY Topete- Attn: Kerry galarza,[address] [facility], [place], [address], [place] [facility] 2 11:34:39 Cyst of left ovary 39780344385 572475 Active 2021 Giselle rem[place] [facility] 2 10:45:06 Morbid obesity 907661014 Active 2021 DENNY Ch[place] [facility] 2 10:42:28 Pelvic mass 37097936 Active 2021 KRISTY Topete-BC Attn: Accountin g,[address] [facility], [place], [address], [place] [facility] 2 11:34:39 Gastroes ophageal reflux disease 447849692 Active 2020 Giselle Betakarlyour t, [place] [facility] 2 10:42:49 Irritabl e bowel syndrome 29177669 Active 2020 Giselle Betancour t, [place] [facility] 2 10:44:10 Chronic constipa tion 038651319 Active 2021 Giselle Betancour t, [place] [facility] 2 10:42:07 History of optic neuritis 42995692988 828940 Active 2021 Giselle Betancour t, [place] [facility] 2 10:44:00 Bereavem ent 28204863 Active 2021 Jessie Cro[facility]ett [facility] Attn: Kerry g,[address] [facility], [place], [address], [place] [facility] 2 12:54:36 Body mass index 30+ - obesity 510197700 Active 2021 Danica Al[place] [facility] 3 14:27:16 History of cerebrov ascular accident 193852982 Active 2022 [facility] Attn: Accountin g,[address] [facility], [place], [address], [place] [facility] 3 15:13:27 Mass of right breast 82275160928 413146 Active 2022 Jessie Crockett [facility] Attn: Accountin g,[address] [facility], [place], [address], [place] [facility] 3 12:28:12 Obesity 525074213 Active 2023 Jessie Crockett [facility] Attn: Accountin michell,[address] [facility], [place], [address], [place] [facility] 4 12:29:07 Anterior knee pain 112233281 Completed 07/09/2017 Danica [place] [facility] 8 16:14:18 Uncontro lled type 2 diabetes mellitus 783471571 Active Giselle rem[place] [facility] 2 10:42:39 Painful mouth 824994202 Completed 11/22/2014 Giselle Bet[place] t [place] [facility] 6 10:27:39 Knee pain Completed 07/09/2018 Danica Al[place] [facility] 9 11:36:54 Right upper quadrant pain 097232017 Completed 07/09/2017 Danica [place] [facility] [place] 16:17:24 Epigastr ic pain 20115793 Completed 07/09/2017 Dan[place] [facility] 16:18:28 Heartbur n 25693088 Completed 07/09/2017 Danica [place] [facility] 16:13:45 Flatulen t dyspepsi a 876829740 Completed 07/09/2017 Dan[place] [facility] 16:17:14 Diabetes mellitus 52684713 Completed 11/22/2014 Giselle [place] t [place] [facility] 6 10:27:39 Helicoba cter detected in blood 468477170 Completed 07/09/2017 Danica [place] [facility] 16:13:50 Acute peptic ulcer 458171493 Completed 07/09/2017 Dan[place] [facility] 16:13:58 Patellof emoral osteoart hritis 145021860 Active Giselle rem[place] [facility] 2 10:44:24 Infestat ion by Sarcopte s scabiei ernesto hominis 117906528 Completed 11/22/2014 Dan[place] [facility] 16:13:39 Thigh pain 06398441 Completed 07/09/2017 Dan[place] [facility] 16:18:22 Diabetic peripher al neuropat hy 145851060 Active Giselle rem[place] [facility] 2 10:43:41 Infestat ion by Sarcopte s scabiei ernesto hominis 043354653 Completed 07/09/2017 Danica [place] [facility] [place] 16:13:39 Osteoart hritis of knee 173382140 Active Giselle rem[place] [facility] 2 10:44:14 Bronchit is 65122373 Completed 07/09/2017 Dan[place] [facility] [place] 16:17:39 Acute bronchit is 71092767 Completed 07/09/2017 Dan[place] [facility] 16:13:34 Allergic rhinitis 68479290 Active Giselle rem[place] [facility] 2 10:42:02 Eruption 097732304 Completed 07/09/2017 Dan[place] [facility] 16:17:18 Otitis media 45809964 Completed 201607/09/2017 Dan[place] [facility] 16:18:08 Acute conjunct ivitis 52302337 Completed 201607/09/2017 Dan[place] [facility] 16:17:46 Acute laryngit is 6143655 Completed 201607/09/2017 Dan[place] [facility] 16:18:18 Problem Notes None recorded. Procedures Surgical History Date Name Laterality Status Provider Name and Address Organization Details Recorded Time 06/05/19 Date of Last Mammogram completed Danica Alvarez RN [facility] 10/06/2022 14:29:46 03/21/19 22 Date of Last Pap Smear completed Danica Alvarez RN [facility] 10/06/2022 14:43:25 03/14/19 22 oophorectomy completed JOHN Topete Attn: Accounting,[address], [place], [address], [facility] 03/21/2021 14:05:13 03/14/19 22 laparoscopic insertion of peritoneal dialysis catheter completed JOHN Topete Attn: Accounting,[address], [place], [address], [facility] 03/21/2021 14:03:20 03/20/19 16 Joint Injection completed Tomer Boles MD [address], [place], [address], [facility] 03/20/2015 11:44:06 12/20/19 15 Joint Injection completed Tomer Boles MD [address], [place], [address], [facility] 12/19/2014 12:04:38 02/23/18 95 Caesarean Section completed Danica Alvarez RN [facility] 06/07/2014 16:13:25 02/23/18 94 Caesarean Section completed Danica Alvarez RN [facility] 06/07/2014 16:13:25 02/23/18 92 Caesarean Section completed Danica Alvarez RN [facility] 06/07/2014 16:13:25 Imaging Results Imaging Date Name Status LastModified by Organ ation Details LastModified Time 06/15/2022 XR, abdomen completed [address] [place] [address], [address], 10/06/2022 15:11:10 06/14/2022 CT, abdomen + pelvis, w/o contrast completed [address] [place] [address], [address], 10/06/2022 15:11:10 11/01/2022 XR, chest, 1 view completed [facility] [address] [facility] [address], [place], [address], 11/05/2022 17:56:22 12/25/2022 MRI, abdomen + pelvis, w/wo contrast completed [facility] [address] [place], [address], 01/12/2023 10:36:39 03/17/2023 MAMMO, screening, bilateral completed [facility] Department [address], [place], [address], 03/24/2023 14:16:33 06/19/2023 US, duplex, arterial, upper extremity completed [facility] [address] [facility] [address], [place], [address], 07/02/2023 11:53:57 Procedure Notes None recorded. Medical Equipment None Reported. Allergies Allergen ID Allergen Name Allergen Category Reaction Reaction Severity Criticality Documentation Date Start Date Code Code System Note Provider Name and Address Organization Details Recorded Time 22368 Flagyl medicatio n hives Not available Not available 07/06/201414233 6 RxNorm Not Available Not Available Not Available 78516 omeprazol e medicatio n rash Not available [...] e 50 mcg/actua tion nasal spray,fernando pension [place] 1 spray twice a day by intranas [...] Updated DateTime 3 160.02 cm 36.3 kg/m2 87078.4 4 g 99 % 99 % 86 /min 98.1 [degF] 140 mm[Hg] 90 mm[Hg] Giselle remy [place] - [facility] 3 14:15:58 Date Recorded Body height Body mass index (BMI) Body weight Heart rate Body temperature Systolic blood pressure Diastolic blood pressure Provider Name and Address Organization Details Last Updated DateTime 3 160.02 cm 33.5 kg/m2 16095.9 6 g 80 /min 97.9 [degF] 120 mm[Hg] 74 mm[Hg] Danica Alvarez RN [facility] 3 14:52:55 Date Recorded Body height Body mass index (BMI) Body weight Body temperature Oxygen saturation Oxygen saturation in Arterial blood by Pulse oximetry Heart rate Systolic blood pressure Diastolic blood pressure Provider Name and Address Organization Details Last Updated DateTime 3 160.02 cm 32.1 kg/m2 63011.6 2 g 98.5 [degF] 98 % 98 % 74 /min 122 mm[Hg] 70 mm[Hg] Giselle remy MA [facility] 3 11:37:24 Date Recorded Body height Oxygen saturation Oxygen saturation in Arterial blood by Pulse oximetry Heart rate Body temperature Body mass index (BMI) Body weight Systolic blood pressure Diastolic blood pressure Provider Name and Address Organization Details Last Updated DateTime 4 160.02 cm 100 % 100 % 68 /min 98.1 [degF] 32.6 kg/m2 97600.4 g 140 mm[Hg] 90 mm[Hg] Giselle remy MA [facility] 4 11:59:24 Date Recorded Body height Body mass index (BMI) Body weight Oxygen saturation Oxygen saturation in Arterial blood by Pulse oximetry Heart rate Respiratory rate Body temperature Systolic blood pressure Diastolic blood pressure Provider Name and Address Organization Details Last Updated DateTime 4 160.02 cm 32.1 kg/m2 16881.2 2 g 100 % 100 % 68 /min 16 /min 98.1 [degF] 184 mm[Hg] 90 mm[Hg] Asad Mcfarlane MA [facility] 4 19:40:59 Social History Question Answer Notes LastModified by Organizat ion Details LastModified Time Tobacco Smoking Status Never Smoker Danica Alvarez RN [facility], [facility] 06/07/2014 16:13:25 Do You Have An [...] t available 06/07/2014 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 [id number] Information not available 03/21/2021 Do You Use [...] available 2021 12:44:17 Medical History Condition Response High Blood Pressure Y Kidney or Bladder Problems Y Diabetes Y Muscle, Joint, or Bone Problems Y Allergies Y High Cholesterol Y [...] polysaccharide PPV23 8 completed Not Available [facility] 2019 02:45:24 Tdap 8 completed Not Available [facility] 2019 02:35:23 Pneumococcal conjugate PCV 13 2 completed Danica Al[place], [place] [facility] 04/19/2021 09:45:40 Hep B, adult 2 completed [place] [facility] 04/19/2021 09:44:41 Influenza, split virus, quadrivalent, preservative 2 completed Alonzo Reynolds MD Attn: Accounting,[address] [place], [place], [address] [place] [address], [place] [facility] 12/30/2021 15:50:00 Hep B, adult 3 completed JOHN Topete Attn: Accounting,[address] [place], [address] [place] [address], [place] [facility] 10/07/2022 09:34:18 Influenza, split virus, quadrivalent, preservative 3 completed Cordelia Alexander [place] [facility] 02/03/2023 13:00:18 Hep B, adult 4 completed JOHN Topete Attn: Accounting,[address] [place], [address] [place] [address], [place] [facility] 2023 15:26:13 Pneumococcal conjugate PCV20, polysaccharide CTA921 conjugate, adjuvant, PF 4 completed JOHN Topete Attn: Accounting,[address] , [place], [address], [facility] 2023 15:26:13 Past Encounters Encounter ID Performer Location Encounter Start Date Encounter Closed Date Diagnosis/Indication Diagnosis SNOMED-CT Code Diagnosis ICD10 Code Diagnosis Note [id number] Danica Alvarez RN [facility] [address] [place] [address] 06/07/2014 15:52:20 06/08/2014 15:51:04 Anterior knee pain [id number] 06/04/2014 left knee xray=moder ate joint effusion otherwise normal 05/05/2014 left knee xray=joint effusion otherwise normal 11/24/2013 left knee xray=kimberly l the patient has not gone to PT which was ordered back in 10/2013 as something came up advised weight loss stressed to take Gabapentin 300mg tid daily not prn Uncontroll ed type 2 diabetes mellitus 136345850 the patient follows with Dr. Catherine Gaytan Endocrinol ogy at [place]. The patient is non compliant with treatment and management of DM2 [id number] Danica Alvarez RN [address] [address] 06/20/2014 17:46:17 06/21/2014 09:46:05 Painful mouth 607562760 antibiotic s and follow up Knee pain 88531043 sees ortho August 15... pain meds and follow up [id number] Danica Alvarez RN [facility] [address] [place] [address] 07/06/2014 12:15:55 07/11/2014 13:25:20 Right upper quadrant pain 983114460 06/29/2014 CT of ABD/PELVIS showed a contracted Gallbladde r 07/03/2014 GB u/S = NORMAL Completed 1 week of daily Omeprazole BRAT diet avoid spicy foods or anything aggravatin g Epigastric pain 70138968 Heartburn 71742620 Flatulent dyspepsia 256494161 Diabetes mellitus 76900299 Patient follows up with ENDOCRINYADIRA BARRIOS AT [facility] for this problem--s he is to continue to follow up with that office for this medical problem. [id number] RICCI TopeteCount includes the [facility] [address] [place] [address] 07/19/2014 16:17:50 07/21/2014 16:53:41 Knee pain 95003610 see orthopedic s stop Ibuprofen for now will give some Tramadol for pain until seen by Ortho Continue PT Patient to discuss Rx for brace with Ortho Acute peptic ulcer 469157946 complete Triple therapy keep apt with GI Avoid aggravatin g foods [id number] [facility] [address] [place] [address] 08/15/2014 09:14:17 08/16/2014 12:02:00 Patellofemoral osteoarthritis 526438324 [id number] Danica Alvarez RN [facility] [address] [place] [address] 10/02/2014 13:49:33 10/09/2014 12:46:07 Infestation by Sarcoptes scabiei ernesto hominis [id number] Rigoeleonora Rose Marie [facility] [address] [place] [address] 11/22/2014 12:15:53 11/23/2014 17:10:01 Thigh pain 05308659 Increase Gabapentin 600mg bid to tid Keep blood sugars in the low 100's weight loss, exercise diabetic neuropathy informatio n discussed and handout given Knee pain 57508670 see orthopedic s--as patient voices difficulty in getting an appointmen t RN has helped to get appt. and patient is now scheduled for 12/19/2014 --keep appointmen t weight loss/ROM exercises at home Use brace as directed Diabetic p eripheral neuropathy 724482358 Uncontroll ed type 2 diabetes mellitus 335217707 the patient follows with Dr. Catherine Gaytan Endocrinol ogy at [place]. The patient is non compliant with treatment [...] t and/or take with endocrinol ogist at [facility] prn [id number] Tomer Boles MD [facility] [address] [place] [address] 12/19/2014 10:37:52 12/19/2014 16:01:48 Knee pain 85010746 M25.569 Patellofem oral osteoarthritis 539295104 M17.9 Infestatio n by Sarcoptes scabiei ernesto hominis 886719130 B86 [id number] Sonam La [facility] [address] [place] [address] 03/20/2015 09:57:27 03/20/2015 13:54:02 Osteoarthritis of knee 373289898 M17.9 Anterior knee pain 68553 3006 M25.569 [id number] Jessie Crockett [facility] [address] [place] [address] 06/07/2015 10:25:17 06/11/2015 17:59:47 Adult health examination 451113631 Z00.01 Acute bronchitis 8952529 2 J20.9 Allergic rhinitis 804419 04 J30.9 Uncontroll ed type 2 diabetes mellitus 951150372 E11.65 the patient follows with Dr. Catherine Gaytan Endocrinol ogy at [place]. The patient reports she is now compliant [...] fos fasting labs which she will get [facility] Medication monitoring 39 5448685 Z51.81 Patient was started on B/P medicine Lisinopril 5mg once daily per Endo Tessie black, [employer]SP[employer]IVER on 04/10/2015= =she was given 11 RF and still using first bottle [id number] Carmelo Shore PA-C [address] [address] 05/31/2015 17:04:34 06/16/2015 13:13:12 Bronchitis 33309860 J40 [id number] Yana Jamari [address] [address] 08/17/2015 18:18:44 08/21/2015 03:47:53 Eruption 844584289 R21 [id number] Carmelo Shore PA-C [facility] [address] [place] [address] 04/24/2016 17:43:51 04/25/2016 17:15:56 Otitis media 23708312 H66.91 Acute conjunctivitis 537 45863 H10.31 Acute laryngitis 2875827 J04.0 viral [id number] [facility] [address] [place] [address] 07/09/2017 15:52:35 07/10/2017 10:25:39 Gynecologic examination 63892388 Z01.411 Self breast exam calcium rich foods handout vitamin D 2000 iu daily exercise weight loss diet Administra tion of pneumococcal vaccine 26949513 Z23 Administra tion of diphtheria, pertussis, and tetanus vaccine 990760726 Z23 Morbid obesity 071926889 E66.01 Cyst of left ovary 22512 57150 2700609 N83.202 Uncontroll ed type 2 diabetes mellitus 144823210 E11.65 the patient follows with Dr. Catherine Gaytan Endocrinol ogy at [place]. The patient reports she is now compliant with treatment and management of DM2 2/2 to issues with her medication s not covered by insurance per patient report discussed ramificati ons of uncontroll ed DM and neuropathy symptoms patient is to call follow up with Endocrinol ogist for management of this problem Family his tory of malignant neoplasm of breast in first degree relative 943737515 Z80.3 Patient refuses referral for genetic testing [id number] Jessie Crockett [facility] [address] [place] [address] 09/23/2017 12:32:53 09/30/2017 18:12:11 Vaginitis 82268788 N76.0 Candidal vulvovaginitis 81951683 B37.3 [id number] Jessie Crockett [facility] [address] [place] [address] 07/09/2018 11:53:24 07/12/2018 10:40:14 Gynecologic examination 66614913 Z01.411 Self breast exam calcium rich foods handout vitamin D 2000 iu daily exercise weight loss diet Last pap 07/09/2017 normal due in 2020 Morbid obesity 539715358 E66.01 40.7 bmi Cyst of left ovary 96556 09587 3815559 N83.202 Uncontroll ed type 2 diabetes mellitus 302301477 E11.65 g the patient follows with Dr. Catherine Gaytan Endocrinol ogy at [place]. The patient reports she is now compliant [...] neoplasm of breast in first degree relative 026383278 Z80.3 Patient's mother had breast cancer at 40 y/o Screening for malignant neoplasm of breast 153610832 Z12.31 Patient's mother had breast cancer at 40 y/o Adjustment disorder with depressed mood 01014368 F43.21 psychother apist list [id number] [facility] [address] [place] [address] 03/21/2021 11:24:25 03/22/2021 06:47:39 Gynecologic examination 17798694 Z01.411 Self breast exam calcium rich foods handout vitamin D 2000 iu daily exercise weight loss diet Last pap 07/09/2017 normal Morbid obesity 396075424 E66.01 39.4 bmi Cyst of left ovary 94520 88075 1474423 N83.202 Uncontroll ed type 2 diabetes mellitus 535929228 E11.65 the patient is currently not following with anyone for this problem the [facility] LantusHydr alazine 100mg bidLisinop ril 20mg daily Family his tory of malignant neoplasm of breast in first degree relative 016880385 Z80.3 Patient's mother had breast cancer at 40 y/oPATIENT WAS REFERRED TO COUNSELING BUT THE PATIENT DID NOT FOLLOW THRU Screening for malignant neoplasm of breast 831322948 Z12.31 Patient's mother had breast cancer at 40 y/o Adjustment disorder with depressed mood 42026905 F43.21 psychother apist list Hypertensive disorder 38 151367 I10 BP Goal: {{Less than 140/90 Les [...] 9 10 11 12} }{{week(s) month(s)* }} [id number] Jessie Crockett, [facility] [address] [address] 04/18/2021 11:33:48 04/19/2021 07:52:01 Uncontrolled type 2 diabetes mellitus 876670386 E11.65 HA1C 6.1random accucheck 183the patient is currently not following with anyone for this problem she had been getting meds during ER visits-she had hospitaliz ation at [facility] [place] 01/20/2021 found to be in ARF-starte d [...] ki dney disease stage 5 on dialysis 837369389 Z99.2 continue to [place] [facility] [place] Morbid obesity 717656964 E66.01 40.8 bmiHealthy Weight: {{4'10= 91-118 lbs [...] lbs 6'4= 156-204 lbs}} Hypertensive disorder 38 830616 I10 BP Goal: {{Less than 140/90* Le [...] }}[facility] 991474004 Z00.01 Pelvic mass 51351864 R19 .00 L adnexal mass seen on pelvic u/s on 04/18/2021L arge cystic mass of the left adnexal region measuring at least 11.8 cm.This is indetermin ate for malignancy and not well characteri zed sonographi aaron.Furt her evaluation is recommende d with either CT or MRI with and withoutcon trast.Will send for MRI Anemia in chronic kidney disease 185073943 D63.1 Chronic constipation 236 495849 K59.09 Takes BisacodylT akes stool softener History of optic neuritis 8826278047 4409973 Z86.69 2020seen opth 2020 [id number] Cordelia Alexander [facility] [address] [place] [address] 05/10/2021 09:59:12 05/13/2021 07:13:40 Uncontrolled type 2 diabetes mellitus 439579492 E11.65 HA1C 6.1random accucheck 183the patient is currently not following with anyone for this problem she had been getting meds during ER visits-she had hospitaliz ation at [facility] [place] [facility] 01/20/2021 found to be in ARF-starte d on dialysissh e presents today to establish care at this centerthe patient now on dialysis with Davitta in [facility] le will be transition ing to self dialysis-s he is interested in renal transplant currently using Lantus 8 units at HSHydralaz ine 100mg bidLisinop ril 20mg dailylabet olol 200mg BID Anemia in chronic kidney disease 324691507 D63.1 [id number] Jessie Crockett [facility] [address] [place] [address] 07/04/2021 11:05:56 07/05/2021 10:25:01 Allergic rhinitis 65332633 J30.9 otc zyrtec samples Uncontroll ed type 2 diabetes mellitus 777195446 E11.65 Today HA1C 8.1random accucheck 245the patient is currently not following with anyone for this problem she had been getting meds during ER visits-she had hospitaliz ation at [facility] [place] [facility] 01/20/2021 found to be in ARF-starte d on dialysissh e presented [facility] [place] has transition ed to self dialysis-s he is interested in renal transplant -has consulted at [facility] using Lantus 8 units at HS-BS at home 111-160Hyd ralazine 100mg bidLisinop ril 20mg dailylabet olol 200mg BIDShe will see Dr/nephrol ogist today and may have med adjustment Hypertensive disorder 38 694386 I10 BP Goal: {{Less than 140/90* Le [...] has refill of her meds from nephrologi [facility] ki dney disease stage 5 on dialysis 645869135 Z99.2 continue to follow [place] [facility] [place] Diabetic p eripheral neuropathy 567174469 E11.40 stable Gastroesop hageal reflux disease 009123873 K21.9 stable for now Morbid obesity 587489956 E66.01 40.8 bmiHealthy Weight: {{4'10= 91-118 lbs [...] lbs 6'4= 156-204 lbs}} Depression screening 171 435241 Z13.31 PHQ2-9 mild depression -patients 20 y/o daughter unexpected ly a couple of weeks agoPatient reports having difficulty sleeping Depressive disorder 3548 9007 F32.A 07/04/2021 PHQ2-9 09/18Agrees to start Rx escitalopr am Chronic constipation 236 351892 K59.09 Takes BisacodylT akes stool softener Bereavement 63515634 Z63 .4 recommend psychother apist-seek appointmen t [id number] Jessie Crockett [facility] [address] [place] [address] 08/15/2021 11:09:34 08/16/2021 15:00:04 Acute sinusitis 06386287 J01.90 Morbid obesity 923820021 E66.01 41.2 bmiHealthy Weight: {{4'10= 91-118 lbs 4'11= 94-123 lbs 5'= 97-127 lbs 5'1= 100-131 lbs 5'2= 104-135 5' 3= 107-140 lbs* 5'4= 110-144 lbs 5'5= 115-149 lbs 5'6= 118-154 lbs 5'7= 121-158 lbs 5'8= 125-163 lbs 5'9= 128-168 lbs 5'10= 132-173 lbs 5'11= 136-178 lbs 6'= 140-183 lbs 6'1= 144-188 lbs 6'2= 148-193 lbs 6'3= 152-199 lbs 6'4= 156-204 lbs}} Bereavement 71468951 Z63 .4 recommend psychother apist-seek appointmen t Depressive disorder 3548 9007 F32.A 08/15/2021 PHQ2-9 0wishes not to take Rx escitalopr twan cope on her owndenies suicide ideationre commend seek psychother demetrio/eladio t group Acute conjunctivitis 537 57043 H10.13 [id number] Jessie Crockett, [facility] [address] [place] [address] 11/04/2021 11:15:18 11/05/2021 11:07:40 Uncontrolled type 2 diabetes mellitus 065172293 E11.65 Today HA1C 10.1random accucheck4 12BS 150-260 range just with Lantus 8 units-has not been using Lispro insulin for a whilethe patient is currently not following with anyone for this problem she had been getting meds during ER visits-she had hospitaliz ation at [facility] [place] 01/20/2021 found to be in ARF-starte d on dialysissh e presented here on [facility]/18[facility] with [facility] in [facility] le has transition ed to self dialysis-s he is interested in renal transplant -has consulted at [facility] using Lantus 8 units at HS-BS at home 111-160Hyd ralazine 100mg bidLisinop ril 20mg dailylabet olol 300mg BID Allergic rhinitis 591792 04 J30.9 otc zyrtec samples Hypertensive disorder 38 018138 I10 BP Goal: {{Less than 140/90* Le [...] 11 12} }{{week(s) month(s)* }}[facility] 5 on dialysis 519423376 Z99.2 continue to follow [place] [facility] [place] Diabetic p eripheral neuropathy 208138998 E11.40 stable Gastroesop hageal reflux disease 171649932 K21.9 stable for now Morbid obesity 240135043 E66.01 37.8 bmiHealthy Weight: {{4'10= 91-118 lbs 4'11= 94-123 lbs 5'= 97-127 lbs 5'1= 100-131 lbs 5'2= 104-135 5' 3= 107-140 lbs* 5'4= 110-144 lbs 5'5= 115-149 lbs 5'6= 118-154 lbs 5'7= 121-158 lbs 5'8= 125-163 lbs 5'9= 128-168 lbs 5'10= 132-173 lbs 5'11= 136-178 lbs 6'= 140-183 lbs 6'1= 144-188 lbs 6'2= 148-193 lbs 6'3= 152-199 lbs 6'4= 156-204 lbs}} Bereavement 30842700 Z63 .4 recommend psychother apist-seek appointmen t Depression screening 171 358488 Z13.31 PHQ2-9 wnl now Chronic constipation 236 118309 K59.09 Takes Bisacody akes stool softener Cyst of left ovary 82762 99762 3956283 N83.202 Patient has had cyst since 2018Patien t has been referred to [employer]IP DES[employer] TE[employer]ER for this problem back in 2018 and again in 2Transp lant team needs a SHIP DESIGN TEACHER note clearing for kidney transplant Has not seen SHIP DESIGN TEACHER yet-appoin tment scheduled for later in the month [id number] Alonzo Reynolds MD [facility] [address] [place] [address] 12/27/2021 10:28:17 12/30/2021 12:57:50 Mass of right breast 7563594208 6164630 N63.10 movable soft mass 1.5cm (2) area below R nipple Body mass index 30+ - obesity 167840136 Z68.36 BMI 36.9Ht 5' 3 Healthy weight range 95-130 Depression screening 171 544655 Z13.31 PHQ2-9 wnl Mental hea lth screening 904832935 Z13.39 HAYLEY-7 negative Administra tion of influenza vaccine 72066293 Z23 [id number] DANISHA TopeteP-Count includes the [facility] [address] [place] [address] 01/31/2022 11:30:16 02/03/2022 13:44:44 Family history of malignant neoplasm of breast in first degree relative 966257091 Z80.3 Patient's mother had breast cancer at 40 y/oPATIENT WAS REFERRED TO COUNSELING BUT THE PATIENT DID NOT FOLLOW THRU1 PATIENT WANTS TO GO TO [facility] COUNSELING Mass of right breast 548 5090887 8555412 N63.10 movable soft mass 1.5cm (2) area below R nipple Body mass index 30+ - obesity 708564884 Z68.36 BMI 36.Ht 5' 3 Healthy weight range 95-130 Depression screening 171 566956 Z13.31 PHQ2-9 mild depression Mental hea lth screening 313365251 Z13.39 HAYLEY-7 negative Hypertensive disorder 38 412634 I10 BP Goal: {{Less than 140/90* Le [...] 12} }{{week(s) month(s)* }}Gets meds from Nephrologi [id number] Jessie Crockett [facility] [address] [place] [address] 03/05/2022 11:39:06 2022 12:49:43 Uncontrolled type 2 diabetes mellitus 941390664 E11.65 Today HA1C 9.6random accucheck 225BS 150-260 range just with Lantus 8 units-has not been using Lispro insulin for a whilethe patient is currently not following with anyone for this problem she had been getting meds during ER visits-she had hospitaliz ation at [place] 01/20/2021 found to be in ARF-starte d on dialysissh e presented here on [facility] with [facility] le has transition ed to self dialysis-s he is interested in renal transplant -has consulted at [facility] using Lantus 10 units at -BS at home 69-160Hydr alazine 100mg bidLisinop ril 20mg dailylabet olol 300mg BID Hypertensive disorder 38 010581 I10 BP Goal: {{Less than 140/90* Le [...] 11 12} }{{week(s) month(s)* }}[facility] dney disease stage 5 on dialysis 021725550 Z99.2 continue to follow up with [facility] [place] Body mass index 30+ - obesity 180708518 Z68.36 BMI 36.Ht 5' 3 Healthy weight range 95-130 Allergic rhinitis 889796 04 J30.9 otc zyrtec Diabetic p eripheral neuropathy 140561538 E11.40 stable Gastroesop hageal reflux disease 903204860 K21.9 stable for now Morbid obesity 479849386 E66.01 36 bmiHealthy Weight: {{4'10= 91-118 lbs [...] 6'4= 156-204 lbs}} Cyst of left ovary 20810 17562 9689525 N83.202 Patient has had cyst since 2018Patien t has been referred to SHIP DESIGN TEACHER for this problem back in 2018 and again in 2021Transp lant team needs a SHIP DESIGN TEACHER note clearing for kidney transplant Has not seen SHIP DESIGN TEACHER yet-appoin tment scheduled for later in the month Chronic constipation 236 140174 K59.09 Takes BisacodylT akes stool softener Depression screening 171 882511 Z13.31 PHQ2-9 negative Mental hea lt screening 953821126 Z13.39 HAYLEY-7 negative Nasal congestion 1487418 0 R09.81 Acute laryngitis 0129840 J04.0 Exposure to scabies 1626 159448 8889697 Z20.7 Pruritic rash 66679883 L 28.2 [id number] Jessie Crockett [facility] [address] [place] [address] 06/11/2022 14:01:33 06/12/2022 14:47:11 Body mass index 30+ - obesity 924427812 Z68.36 BMI 36.3Ht 5' 3 Healthy weight range 95-130 Obesity 951096066 E66.9 BMI 36.3Ht 5' 3 Healthy weight range 95-130 Follow-up visit 82236399 9 Z09 42 y/o AAF presents for [...] to see neurology. History of cerebrovascular accident 134024042 Z86.73 05/03/[address] showed small region of decreased attenuatio n at left occipital lobe suspicious for relatively recent, potentiall y acute infarct which is new since 01/06/2022 . Hypertensive disorder 38 449040 I10 BP Goal: {{Less than 140/90* Le [...] Hydralazin e 100mg bid Depression screening 171 571252 Z13.31 PHQ2-9 negative Mental hea [facility] screening 078014892 Z13.39 HAYLEY-7 negative [id number] Jessie Crockett, [facility] [address] [place] [address] 10/06/2022 14:16:18 10/07/2022 11:43:28 Hypertensive disorder 56372194 I10 BP Goal: {{Less than 140/90* Le [...] bid Uncontroll ed type 2 diabetes mellitus 659549500 E11.65 Today HA1C 8random accucheck 225BS 150-260 range just with Lantus 8 units-has not been using Lispro insulin for a whilethe patient is currently not following with anyone for this problem she had been getting meds during ER visits-she had hospitaliz ation at [facility] [place] 01/20/2021 found to be in ARF-starte d on dialysissh e presented [facility] [place] [facility] [place] has transition ed to self dialysis-s he is interested in renal transplant -has consulted at [facility] and is on waiting listcurren tly using Lantus 10 units at -BS at home 69-160Pati ent will start using Lispro insulin 5 units bid she has not been using secondary to low sugars and afraidPati ent is taking Labetalol 300mg bidHydrala zine 100mg bidLisinop ril 20mg daily Morbid obesity 843006762 E66.01 33.5 BMIHealthy Weight: {{4'10= 91-118 lbs 4'11= 94-123 lbs 5'= 97-127 lbs 5'1= 100-131 lbs 5'2= 104-135 5' 3= 107-140 lbs* 5'4= 110-144 lbs 5'5= 115-149 lbs 5'6= 118-154 lbs 5'7= 121-158 lbs 5'8= 125-163 lbs 5'9= 128-168 lbs 5'10= 132-173 lbs 5'11= 136-178 lbs 6'= 140-183 lbs 6'1= 144-188 lbs 6'2= 148-193 lbs 6'3= 152-199 lbs 6'4= 156-204 lbs}} Allergic rhinitis 219404 04 J30.9 otc zyrtec Gastroesop hageal reflux disease 904719509 K21.9 stable for now Obesity 061944362 E66.9 BMI 33.5Ht 5' 3 Healthy weight range 95-130 Chronic ki dney disease stage 5 on dialysis 648863850 Z99.2 continue to follow up with [facility] [place] Body mass index 30+ - obesity 278358892 Z68.36 BMI 33.5Ht 5' 3 Healthy weight range 95-130 Diabetic p eripheral neuropathy 533837136 E11.40 stable Cyst of left ovary 55529 99866 7884883 N83.202 Patient has had cyst since 2018Patien t has been referred to SHIP DESIGN TEACHER for this problem back in 2018 and again in 2021Transp lant team needs a SHIP DESIGN TEACHER note clearing for kidney transplant Has not seen SHIP DESIGN TEACHER yet-appoin tment scheduled for later Chronic constipation 236 717717 K59.09 Takes BisacodylT akes stool softener Nasal congestion 5455536 0 R09.81 Depression screening 171 877275 Z13.31 PHQ2-9 negative Mental hea lth screening 549701706 Z13.39 HAYLEY-7 negative Requires c ourse of hepatitis B vaccination 565871503 Z28.39 [id number] Jessie Crockett [facility] [address] [address] 02/03/2023 11:22:33 02/04/2023 11:52:11 Body mass index 30+ - obesity 648850556 Z68.36 BMI 32.1Ht 5' 3 Healthy weight range 95-130 Depression screening 171 791121 Z13.31 PHQ2-9 wnl Mental hea [facility] screening 515872368 Z13.39 HAYLEY-7 negative Screening for malignant neoplasm of breast 489023881 Z12.31 patients' mother had breast cancer at 40 y/o Administra tion of influenza vaccine 52605547 Z23 [id number] Jessie Crockett, [facility] [address] [place] [address] 2023 11:02:07 03/13/2023 15:33:54 Uncontrolled type 2 diabetes mellitus 435996808 E11.65 Today HA1C 6.4random accucheck 178BS 150-260 range just with Lantus 8 units-has not been using Lispro insulin for a whilethe patient is currently not following with anyone for this problem she had been getting meds during ER visits-she had hospitaliz ation at [facility] [place] 01/20/2021 found to be in ARF-starte d on dialysissh e presented [facility] has transition ed to self dialysis-s he is interested in renal transplant -has consulted at [facility] and is on waiting listcurren tly using Lantus 10 units at HS-BS at home 69-160Pati ent stopped using Lispro insulin 5 units bid she has not been using secondary to low sugars and afraidPati ent is taking Labetalol 300mg bidHydrala zine 100mg bid Hypertensive disorder 38 425593 I10 BP Goal: {{Less than 140/90* Le [...] Labetalol 300mg bid Vitamin D deficiency 347 23392 E55.9 Allergic rhinitis 045040 04 J30.9 otc zyrtec Morbid obesity 223503989 E66.01 BMI 32.6Health y Weight: {{4'10= 91-118 [...] 6'4= 156-204 lbs}} Gastroesop hageal reflux disease 268122437 K21.9 stable for now Obesity 404723079 E66.9 BMI 32.6Ht 5' 3 Healthy weight range 95-130 Chronic ki dney disease stage 5 on dialysis 793742759 Z99.2 [place] Body mass index 30+ - obesity 148272646 Z68.36 BMI 32.6Ht 5' 3 Healthy weight range 95-130 Diabetic p eripheral neuropathy 991082225 E11.40 stable Chronic constipation 236 142679 K59.09 Takes BisacodylT akes stool softener Nasal congestion 4505715 0 R09.81 Requires c ourse of hepatitis B vaccination 775987194 Z28.39 Depression screening 171 970536 Z13.31 PHQ2-9 negative Mental hea lth screening 790435533 Z13.39 HAYLEY-7 negative Administra tion of pneumococcal vaccine 92632731 Z23 Has DM2, CKD, Vaginitis 38409014 N76.0 c/o vaginal itching [id number] MARK Sargent [facility] [address] [place] [address] 09/08/2023 19:36:30 09/09/2023 08:36:21 Obesity 201314245 E66.8 Renewal of prescription 099907837 Z76.0 Diabetic p eripheral neuropathy 178853481 E11.40 Altered appetite 1916876 04 R63.8 Health Concerns Section Related Observation LastModified by Organization Detai ls LastModified Time None Recorded Concern Status LastModified by Organization Details LastModified Time None Recorded Advance Directives Directive N: Payers Encounter Date Sequence Insurance Name Policy Number Policy [place] Covered Member ID [place] Member ID Guarantor Name 06/11/2022 1 [place] Bakari Smith [id number] Bakari Smith 06/11/2022 2 [place] OR MEDIC[place] REPLACEMENT PRIMARY) Bakari Smith [id number] Bakari Smith 10/06/2022 1 [place] Smith [id number] Bakari Smith 10/06/2022 2 [place]PLACEMENT [place]) Bakari Smith [id number] Bakari Smith 02/03/2023 1 [place] Bak[place] Smith [id number] Bakari Smith 02/03/2023 2 [place] REPLACEMENT PR[place]) Bakari Smith [id number] Bakari Smith 2023 1 [place]) Bak[place] Smith [id number] Bakari Smith 2023 2 [place] REPLACEMENT PRIMARY) Bakari Smith [id number] Bakari Smith 09/08/2023 1 [place] Bakari Smith [id number] Bakari Smith 09/08/2023 2 [place] OR MEDICARE REPLACEMENT PRIMARY) Bakari Smith [id number] Bakari Smith Notes Date Note Type Note [...] 80mg yet. KRISTY Topete- Attn: Accounting,[address] [place], [address], [place] [facility] 06/11/2022 15:17:36 3 text/html [...] dailylabetolol 300mg BIDFollows with DR Beth Barrett Animal Physiology Teacher she is now doing dialysis 3 times [...] Crockett Attn: Accounting,[address], [place], [address], [facility] 10/07/2022 10:01:14 3 text/html 42y/o AARene presents for CBE and mammogram order. She has no complaints. She continues to get dyalisis. She wants to get influenza vaccine. She has no contraindications. RICCI Topete Attn: Accounting,[address], [place], [address], [facility] 02/03/2023 12:30:19 4 text/html ConstipationReported bypatient.Quality:hard;dry ;straining;decreased [...] bidlabetolol 300mg BIDFollows with DR Beth Barrett Animal Physiology Teacher she is now doing dialysis 3 times [...] no contraindications. RICCI TopeteBC Attn: Accounting,[address] [facility], [place], [address], [facility] 04/02/2023 17:51:42 4 text/html Patient is [...] cannot do RICCI SargentC Attn: Accounting,[address] [facility], [place], [address], [facility] 09/08/2023 20:26:04 OBGyn Episode Ob Episode Information Episode Created Date Number of Fetuses Patient Bloodtype Patient rh Status Prepregnancy Weight lbs Domestic Partner Domestic Partner Phone Father Name Lining Stamper Status 07/10/19 19 1 CLOSED Fetus Data First Name Last Name Admitted to NICU Weight (g) Sex Living Outcome Pediatric Complications Fetus ID Race Codes Race Delivery Type F [id number] Camilo Calculation Initial Camilo Date Initial Exam [...] Domestic Partner Domestic Partner Phone Father Name Lining Stamper Status 07/10/19 19 1 CLOSED Fetus Data First Name Last Name Admitted to NICU Weight (g) Sex Living Outcome Pediatric Complications Fetus ID Race Codes Race Delivery Type M [id number] Camilo Calculation Initial Camilo Date Initial Exam [...] Domestic Partner Domestic Partner Phone Father Name Lining Stamper Status 07/10/19 19 1 CLOSED Fetus Data First Name Last Name Admitted to NICU Weight (g) Sex Living Outcome Pediatric Complications Fetus ID Race Codes Race Delivery Type F 35201 Camilo Calculation Initial Camilo Date Initial Exam [...]
--- OUTSIDE RECORDS SUMMARY | 2024-05-05 14:58 | XMS_ITS | Clinical Summary ---
Author Organization [facility] Address [address] [place] [address] Care Team Providers Care Oxygen Therapy Teacher Name Role Phone Jessie Dickson BUSINESS OPERATIONS SPECIALIST-PROJECT MANAGEMENT CONSULTANT Primary Care Pro vider Source Comments [facility],non-owned Affiliates and Associated Physician Practices is amultiple site organization consisting of ambulatory clinics and hospital sitesin [place], [place], [place] and [place]. This disclosure is being madepursuant to the Care Everywhere program and may not contain all information available regarding this patient. Last updated 17.[facility] Allergies Active Allergy Reactions Criticality Noted Date [...] 200 Each 11 06/09/2018 Active ergocalciferol (DRISDOL) 40479 units capsule Take 1 capsule by mouth [...] procedure) 2 tablet 01/21/2022 Active HYDROcodone-acetamino phen ([place]) 5-325 MG tablet Take 1 (one) tablet [...] Comments Blood Pressure 145/85 02/05/2022 12:[address] irizarry aware; ok to d/cv Pulse 74 02/05/2022 11:55 AM CASE COORDINATOR Temperature 36.8 C (98.2 F) 09/13/2019 8:22 AM CDT Respiratory Rate 12 02/05/2022 11:5 0 AM CASE COORDINATOR Oxygen Saturation 100% 02/05/2022 11: 55 AM CASE COORDINATOR Inhaled Oxygen Concentration - - Weight 108.9 [...] complete this topic MENINGOCOCCAL (Group B) VACCINE SHARED DECISION-MAKING Aged Out No longer eligible based on patient's age to complete this topic MENINGOCOCCAL GROUPS A/C/Y/W VACCINE Aged Out No longer eligible based [...] CARE (AMB) [facility] (11/01/2018 10:11 AM CDT) Pathologist [facility] Hemoglobin A1c POCT 8.5% BLOOD SPECIMEN / Unknown 11/01/2018 10:11 AM CDT Tessie Pritchard BUSINESS OPERATIONS SPECIALIST-PROJECT MANAGEMENT CONSULTANT LAB - POINT O F CARE ORDERABLES * HEPATITIS C AB SCREEN RFLX NAAT QUANT (05/28/2018 12:13 PM CDT) Pathologist [facility] Hepatitis C Antibody Non-react javier Non-reac tive 05/28/2018 1:18 PM CDT [facility] Comment: Hepatitis C Antibody [...] Thornton MD LAB - CHEMISTRY [facility] [facility] [address] [phone] * HIV-1 HIV-2 ANTIGEN/ANTIBODY (05/24/2018 5:08 PM CDT) [facility] HIV Antigen/Antibod y 1 & 2 Non-reacti ve Non-react javier 05/24/2018 5:54 PM CDT [facility] Comment: Neither HIV-1 p24 Antigen nor HIV-1/HIV-2 Antibodies are detected. Blood BLOOD SPECIMEN / Unknown Venipuncture / Unknown 05/24/2018 5:08 PM CDT 05/24/2018 5:16 PM CDT Namita Raymond MD LAB - HEMATOLOGY ORD [facility] [address] [place] [address], [facility] [phone] from Last 3 Months or Most Recently Relevant to Health Maintenance Advance Directives * Full Code (Latest Code Status on File) Date Activated Date Inactivated Comments 05/25/2018 12:57 AM 05/28/2018 5:22 PM * Full Code Date Activated Date Inactivated Comments 05/24/2018 6:24 PM 05/25/2018 12:57 AM Care Teams Oxygen Therapy Teacher Relationship Specialty Start Date End Date Jessie Dickson APRN-JANET [address], [place] [address] PCP - General 06/30/14
--- OUTSIDE RECORDS SUMMARY | 2024-05-05 14:58 | XMS_ITS | Encounter Summary ---
Author Organization [facility] Address [address] [place] [address] Care Team Providers Care Neurology Stroke Physician Name Role Phone Jessie Dickson LENS BLANK GAUGER-TASSEL MAKING MACHINE OPERATOR Primary Care Pro vider Encounter Details Date Type Department Care Team (Late st Contact Info) Description 05/25/2018 Ophth Exam [facility] [place] [address] Regina Fritz MD [facility] [place] [address] Social History Tobacco Use Types Packs/Day Years [...] on filedocumented in this encounter Care Teams Neurology Stroke Physician Relationship Specialty Start Date End Date Jessie Dickson APRN-JANET [address] [place] [address] PCP - General 06/30/14 documented as of this encounter
--- OUTSIDE RECORDS SUMMARY | 2024-05-05 14:59 | XMS_ITS ---
Author Organization [facility] Address [address] [place] [address] Care Team Providers Care Maintenance Shop Welder Name Role Phone Almita Rizzo RN Unavailable [phone] Beth Fernandez MD Unavailable [phone] Maday Oviedo MD Unavailable [phone] Tomasz Scott DO Unavailable [phone] No, Physician Primary Care Provider [phone] Meir Nazario MD Unavailable [phone] Transplant Episode Kidney Candidate [facility] ([place], [place]) [facility] Center waitlisted on 09/10/2021 Marked as Active on 04/02/2023 Reason: Listed in [facility] Kidney CoordinatorAlmita Rizzo RN Fax: N/A Email: N/A Scores Score Value Updated Exceptions/Reas ons CPRA Not available EPTS (Calc) 53 05/05/2024 [place] 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 Mellitus - Type II Care Team Name Role Phone Fax Email Almita Rizzo RN Kidney Coordinator [phone] N/A N/A Beth Fernandez MD Referring Physician [phone] N/A Hien Mireles Cut Out Machine Operator [phone] N/A N/A Events Pre-Transplant Referred: 02/07/2021 Evaluation began: 04/04/2021 Committee: 09/09/2021 [facility] qualified: 01/21/2021 Center waitlisted: 09/10/2021 Dialysis History Dialysis History Start End Type Comments Center 04/23/2021 Peritoneal [facility] 01/21/2021 04/23/2021 Hemo M/W/F [facility] Information Center Phone Fax Address [facility] [phone] [address] [facility] [phone] [place] [address]
--- OUTSIDE RECORDS SUMMARY | 2024-05-05 14:59 | XMS_ITS | CONTINUITY OF CARE DOCUMENT ---
Author Name juany harrington Address Unknown Organization [facility] Address [address] [place] [address] [address] [place] [address] Phone [phone] Care Team Providers Care Public Works Technician Name Role Phone Christoph Guerra MD Unavailable [phone] ANNITA WALTER MD Unavailable [phone] ANNITA WALTER MD Unavailable [phone] PROBLEMS Condition Status Date Provider Notes Cardiology examination active Christoph ramirez MD Hyperlipidemia active Christoph Guerra MD Shortness of breath active Christoph Gonzalez Restless leg syndrome active Christoph Guerra MD Diabetic autonomic neuropathy active Christoph Guerra MD Diabetes mellitus, type 2 active Christoph greer MD HTN essential active Christoph Guerra MD ESRD on PD active Christoph Guerra MD ENCOUNTERS Date Type Provider Location Encounter Diag nosis - In-person encounter Office Visit Christoph Guerra MD [facility] Cardiology examinationESRD on PDHTN essentialDiabetes mellitus, [...] Payer name Policy type / Coverage type [employer] party ID [place] Medicare [id number] ADVANCE DIRECTIVES Name Date DISCUSSED - NO [...]
--- OUTSIDE RECORDS SUMMARY | 2024-05-05 14:59 | XMS_ITS | Clinical Summary ---
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 Name Role Phone Almita Rizzo RN Unavailable Beth Fernandez MD Unavailable [phone] Maday Oviedo MD Unavailable [phone] Tomasz Scott DO Unavailable [phone] No, Physician Primary Care Provider Meir Nazario MD Unavailable [phone] Allergies Active Allergy Reactions Criticality Noted Date [...] needed for cough 15 capsule 4 Active HYDROcodone-ac etaminophen (NORCO) 5-325 mg per tabletIndicati ons:Pain Take 1 tablet by mouth every 6 (six) hours as needed for pain for up to 5 doses 5 tablet 5 Active lidocaine (LIDODERM) 5 % Place 1 patch on the skin daily Remove & discard patch within 12 hours or as directed by MD. 5 patch 5 05/07/19 25 Active Active Problems Problem Noted Date Diagnosed Date Screening for colorectal cancer 07/08/2023 Pre-transplant evaluation for kidney transplant 07/08/2023 Pain of left upper extremity 06/24/2023 Encounter for surgical after care following surgery of circulatory system 07/04/2022 Ovarian mass 04/10/2022 Overview (04/10/2022): Added automatically from request for surgery [id number] Hypertension 2021 Stage 5 chronic kidney disease on chronic dialys is 03/05/2021 Diabetic retinopathy associa graeme with type 2 diabetes mellitus 06/12/2015 Hyperlipidemia 06/29/2014 Type 2 diabetes mellitus 09/17/2012 Resolved Problems Problem Noted Date Diagnosed Date Resolved Date 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 04/09/2022 Acute retrobulbar neuritis 05/24/2018 0 04/09/2022 Blurring of visual image 05/24/2018 Vitamin D deficiency disease 09/17/2012 04/09/2022 Diabetes mellitus 06/21/2010 04/09/2022 Encounters Date Type Department Care Team Description 04/29/2024 Telephone [facility] Transplant Kidney [address] Mailstop [id number] [place] [address] Hien Mireles 04/29/2024 Telephone [facility] Trans[facility] Kidney [address] [facility] [address] Mailstop [id number] [place] [address] Suad Hou 04/11/2024 Telephone [facility]ney [address] [facility] [address] Mailop [id number] [place] [address] Almita Rizzo RN Waitlist Maintenance 04/06/2024 11:14 AM DIVIDEND DEPOSIT VOUCHER CLERK - 04/06/2024 12:22 PM [facility] Emergency Department [address] [place] [address] Lavon Castaneda MD Pain of left upper extremity (Primary Dx) Discharge Disposition: Discharge to home or self care 03/29/2024 10:00 AM DIVIDEND DEPOSIT VOUCHER CLERK - 03/29/2024 11:59 PM DIVIDEND DEPOSIT VOUCHER CLERK Hospital Encounter [address] [address] Pre-transplant evaluation for kidney transplant; ESRD (end stage renal disease) (HCC) Discharge Disposition: Discharge to home or self care 03/22/2024 Documentation [facility] Transplant Kidney [address] [facility] [address] [place], [place] [address]op [id number] [place] [address] Almita Rizzo RN Waitlist Maintenance 02/29/2024 Telephone [facility]ney [address] [facility] [address] Mailstop [phone] [place] [address] Almita Rizzo, RN Waitlist Maintenance 02/26/2024 10:00 AM DIVIDEND DEPOSIT VOUCHER CLERK - 02/26/2024 11:59 PM DIVIDEND DEPOSIT VOUCHER CLERK Hospital Encounter [address] [address] Pre-transplant evaluation for kidney transplant; ESRD (end stage renal disease) (HCC) Discharge Disposition: Discharge to home or self care 02/26/2024 7:21 AM DIVIDEND DEPOSIT VOUCHER CLERK - 02/26/2024 11:59 PM DIVIDEND DEPOSIT VOUCHER CLERK Hospital Encounter [facility] [address] [place] [address] Pre-kidney transplant, patient on transplant list; ESRD (end stage renal disease) ([facility]) Discharge Disposition: Discharge to home or self care 02/18/2024 Documentation [facility] Transplant Kidney [address] [facility] [address] Mailstop [id number] [place] [address] Anjali Gastelum Appointment/Schedul es 02/18/2024 Documentation [facility] Transplant Kidney [address] [facility] [address] Mailstop [id number] [place] [address] Almita Rizzo, RN Waitlist Maintenance 02/16/2024 11:25 AM DIVIDEND DEPOSIT VOUCHER CLERK Lab [facility] ([facility]) [address] [place] [phone] Pre-kidney transplant, patient on transplant list; ESRD (end stage renal disease) ([facility]) from Last 3 Months Immunizations Immunization Administration Dates Next Due Hep B Vaccine 2023,10/06/2022,04/18/2021 Influenza, Mdck, Trivalent, Contains Preservative (MDV) 11/27/2023 Influenza, Quadrivalent, Spl it, Intramuscular 02/03/2023,12/27/2021 PPD TEST 05/25/2023,07/30/2022 Pneumococcal Conjugate 7-Valent 03/03/2018 Pneumococcal Conjugate PCV 13 04/18/2021 Pneumococcal Conjugate Pcv20 2023 Pneumococcal Polysaccharide PPV23 07/09/2017 Pneumococcal, Unspecified 04/18/2021 Tdap 07/09/2017 Surgical History Surgery Date Site/Laterality Comments SECTION 1994,1994,2002 CHOLECYSTECTOMY 02/23/2017 - 02/22/2018 APPENDECTOMY 02/23/2017 - 02/22/2018 OOPHORECTOMY 02/23/2017 - 02/22/2018 Right TUBAL LIGATION 02/23/2005 - 02/22/2006 AV FISTULA PLACEMENT 02/06/2020 AV FISTULA PLACEMENT 05/08/2022 Medical History Medical History Date Comments Type 2 diabetes mellitus (HCC) 09/17/2012 Stage 5 chronic kidney disease on chronic dialys is (HCC) 03/05/2021 Hypertension 2021 Family History Medical [...] making you feel afraid or unsafe? Denies 04/06/2024 Comments No Sex and Gender Information Value Date Recorded Sex Assigned at Not on file Legal Sex Female 11:50 PM DIVIDEND DEPOSIT VOUCHER CLERK Gender Identity Not on file Sexual Orientation Not on file Obstetrics History Para Term AB IAB SAB Ectopic Multiple Livin g Live Births 3 3 2 Date Outcome GA Total Labor Labor/2nd/3rd Weight Sex Type Anes PTL Yris A1 A5 Name Clin Para Para Para Last Filed Vital Signs Vital Sign Reading Time Taken Comments Blood Pressure 198/97 04/06/2024 12:20 PM DIVIDEND DEPOSIT VOUCHER CLERK Pulse 80 04/06/2024 12:20 PM DIVIDEND DEPOSIT VOUCHER CLERK Temperature 36.4 C (97.5 F) 04/06/2024 7:45 AM DIVIDEND DEPOSIT VOUCHER CLERK Respiratory Rate 18 04/06/2024 12:20 PM DIVIDEND DEPOSIT VOUCHER CLERK Oxygen Saturation 95% 04/06/2024 11:32 AM DIVIDEND DEPOSIT VOUCHER CLERK Inhaled Oxygen Concentration - - Weight 92.3 kg (203 lb 7.8 oz) 04/06/2024 7:45 A M DIVIDEND DEPOSIT VOUCHER CLERK Height 160 cm (5' 3 ) 02/26/2024 8:40 AM DIVIDEND DEPOSIT VOUCHER CLERK Body Mass Index 36.05 02/26/2024 8:40 AM DIVIDEND DEPOSIT VOUCHER CLERK Plan of Treatment Health Maintenance Due Date Last Done Comments Albumin Creatinine Ratio, Urine 1978 Cervical Cancer Screening 1978 Depression Screening 1978 Dilated Eye Exam 1978 Foot Exam 1978 Regular Well Visit/Exam 18-64 1996 Lipid Panel 04/30/2022 04/30/2021, 05/22/2018 Influenza Vaccine (#1) 2023 , 02/03/2023, 12/27/2021 Breast Cancer Screening-Mammogram 03/19/2024 03/19/2023, 03/17/2023, 06/04/2021 Hemoglobin A1C 08/16/2024 02/16/2024, 1209/2022, 05/23/2022, Additional history exists eGFR 04/06/2025 04/06/2024, 01/24, 01/08/2024, Additional history exists DTaP/Tdap/Td Vaccine (2 - Td or Tdap) 07/10/2027 07/09/2017 Colon Cancer Screening-Colonoscopy 07/20/2033 07/21/2023 Pneumococcal vaccine <65 Completed 024, 04/18/2021, 04/18/2021, Additional history exists Hepatitis B Screening Completed 02/16/2024 , 2023, 10/06/2022, Additional history exists Hepatitis C Screening Completed 02/16/2024 , 01/30/2023, 04/30/2021 HPV Vaccines Aged Out No longer eligi ble based on patient's age to complete this topic Medical Devices Implanted Type Area Industrial Economist Device Identifier Shelf Expiration Date Model / Serial / Lot [employer] [id number] [place] 15fr 62cm 2 Cuff Radiopaque Peritoneal Curl Catheter - Sn/A - [id number] Implanted:Qty : 1 on 03/14/2021 by Gildardo Leggett MD at [facility] Catheter N/A: Abdomen [employer] 07/01/2025 [id number] / N/A / [id number] Description:Peritoneal Dialy sis Catheter, Curl Cath, 2 Cuffs Graft Vasc 45cm 4-6mm Victor Acuseal Eptfe 3 Layer Kink Rst - [id number] - [id number] Implanted:Qty : 1 on 05/08/2022 by Uche Ktaz MD at [facility] Graft Left: Arm Wl [employer] [id number] 05/21/2024 [id number] / [id number] / 00 Procedures Procedure Name Priority Date/Time Associated Diagnosis Comments TROPONIN T HIGH-SENSITIVITY 2-HOUR Timed 04/06/2024 11:12 AM DIVIDEND DEPOSIT VOUCHER CLERK XR SHOULDER LEFT 2 OR MORE VIEWS ED 04/06/2024 8:55 AM DIVIDEND DEPOSIT VOUCHER CLERK XR CHEST 1 VIEW ED 04/06/2024 8:55 AM DIVIDEND DEPOSIT VOUCHER CLERK EGFR STAT 04/06/2024 8:24 AM DIVIDEND DEPOSIT VOUCHER CLERK DIFFERENTIAL AUTO STAT 04/06/2024 8:2 4 AM DIVIDEND DEPOSIT VOUCHER CLERK HCG, BLOOD, QUANTITATIVE STAT 04/06/2024 8:24 AM DIVIDEND DEPOSIT VOUCHER CLERK TROPONIN T HIGH-SENSITIVITY SERIES (BASELINE, 2HR, 4HR, 6HR) STAT 04/06/2024 8:24 AM DIVIDEND DEPOSIT VOUCHER CLERK BASIC METABOLIC PANEL STAT 04/06/2024 8:24 AM DIVIDEND DEPOSIT VOUCHER CLERK CBC WITH AUTO DIFFERENTIAL STAT 04/06/2024 8:24 AM DIVIDEND DEPOSIT VOUCHER CLERK ECG 12-LEAD STAT 04/06/2024 8:18 AM DIVIDEND DEPOSIT VOUCHER CLERK HLA ANTIBODY SCREEN - SAB (CLASS I AND CLASS II) Routine 03/29/2024 10:00 AM DIVIDEND DEPOSIT VOUCHER CLERK Pre-transplant evaluation for kidney transplant ESRD (end stage renal disease) (HCC) HLA ANTIBODY SCREEN BY PRA OR SAB PER SCHEDULE (CLASS I AND CLASS II) Routine 03/29/2024 10:00 AM DIVIDEND DEPOSIT VOUCHER CLERK Pre-transplant evaluation for kidney transplant ESRD (end stage renal disease) (HCC) STRESS ECHO PHARMACOLOGIC W DOPPLER/CF W CONTRAST Routine 02/26/2024 10:12 AM DIVIDEND DEPOSIT VOUCHER CLERK Pre-kidney transplant, patient on transplant list ESRD (end stage renal disease) (HCC) HLA ANTIBODY SCREEN BY PRA OR SAB PER SCHEDULE (CLASS I AND CLASS II) Routine 02/26/2024 10:00 AM DIVIDEND DEPOSIT VOUCHER CLERK Pre-transplant evaluation for kidney transplant ESRD (end stage renal disease) (HCC) EGFR Routine 02/16/2024 11:34 AM DIVIDEND DEPOSIT VOUCHER CLERK Pre-kidney transplant, patient on transplant list ESRD (end stage renal disease) (HCC) DIFFERENTIAL AUTO Routine 02/16/2024 11: 34 AM DIVIDEND DEPOSIT VOUCHER CLERK Pre-kidney transplant, patient on transplant list ESRD (end stage renal disease) (HCC) CBC WITH AUTO DIFFERENTIAL Routine 02/16/2024 11:34 AM DIVIDEND DEPOSIT VOUCHER CLERK Pre-kidney transplant, patient on transplant list ESRD (end stage renal disease) (HCC) COMPREHENSIVE METABOLIC PANEL Routine 02/16/2024 11:34 AM DIVIDEND DEPOSIT VOUCHER CLERK Pre-kidney transplant, patient on transplant list ESRD (end stage renal disease) (HCC) PHOSPHORUS Routine 02/16/2024 11:34 AM DIVIDEND DEPOSIT VOUCHER CLERK Pre-kidney transplant, patient on transplant list ESRD (end stage renal disease) (HCC) PTH Routine 02/16/2024 11:34 AM DIVIDEND DEPOSIT VOUCHER CLERK Pre-kidney transplant, patient on transplant list ESRD (end stage renal disease) (HCC) HEMOGLOBIN A1C Routine 02/16/2024 11:34 AM DIVIDEND DEPOSIT VOUCHER CLERK Pre-kidney transplant, patient on transplant list ESRD (end stage renal disease) (HCC) HIV 1/2 ANTIBODY PLUS P24 ANTIGEN Routine 02/16/2024 11:34 AM DIVIDEND DEPOSIT VOUCHER CLERK Pre-kidney transplant, patient on transplant list ESRD (end stage renal disease) (HCC) HEPATITIS B SURFACE ANTIBODY (IMMUNE STATUS) Routine 02/16/2024 11:34 AM DIVIDEND DEPOSIT VOUCHER CLERK Pre-kidney transplant, patient on transplant list ESRD (end stage renal disease) (HCC) HEPATITIS B SURFACE ANTIGEN Routine 02/16/2024 11:34 AM DIVIDEND DEPOSIT VOUCHER CLERK Pre-kidney transplant, patient on transplant list ESRD (end stage renal disease) (HCC) HEPATITIS C ANTIBODY Routine 02/16/2024 11:34 AM DIVIDEND DEPOSIT VOUCHER CLERK Pre-kidney transplant, patient on transplant list ESRD (end stage renal disease) (HCC) HEPATITIS B CORE ANTIBODY, TOTAL Routine 02/16/2024 11:34 AM DIVIDEND DEPOSIT VOUCHER CLERK Pre-kidney transplant, patient on transplant list ESRD (end stage renal disease) (HCC) COLONOSCOPY 07/21/2023 10:23 AM CDT HM MAMMOGRAPHY Routine 06/04/2021 LIPID PANEL Routine 04/30/2021 12:22 PM DIVIDEND DEPOSIT VOUCHER CLERK Pre-transplant evaluation for kidney transplant End stage renal disease (HCC) from Last 3 Months or Most Recently Relevant to Health Maintenance Results * (ABNORMAL) Troponin T high-sensitivity 2-hour (04/06/2024 11:12 AM DIVIDEND DEPOSIT VOUCHER CLERK) Trop T hs 195(H) <=14 ng/L Comment: Interpretive Data For further hscTnT resources including the diagnostic algorithm and an aid in interpretation, copy and paste this link: https://nrl.testcatalog.org/show/hsTrop Current Interpretive Data last revised 2020. Testing performed by: [address] [address] Trop T hs pct delta -3 % DENNIS Comment:Testing performed by : [address] [address] Trop T hs interp Insignificant DENNIS Comment:Testing performed by : [address] [address] Blood 04/06/2024 11:1 2 AM DIVIDEND DEPOSIT VOUCHER CLERK 04/06/2024 11:21 AM DIVIDEND DEPOSIT VOUCHER CLERK us Lavon Castaneda MD LAB BLOOD ORDERABLE S Final Result [facility] [address] [facility] [place] [address] * XR Chest 1 Vw Portable (04/06/2024 8:55 AM DIVIDEND DEPOSIT VOUCHER CLERK) Anatomical Region Laterality Modality Body, Chest N/A Computed Radiogr aphy 04/06/2024 9:06 AM DIVIDEND DEPOSIT VOUCHER CLERK Narrative 04/06/2024 9:06 AM DIVIDEND DEPOSIT VOUCHER CLERK EXAM DESCRIPTION: XR CHEST 1 VIEW REASON FOR STUDY: left arm pain Onset of left shoulder pain Thursday TECHNIQUE: 1 radiographic view(s) of the chest. COMPARISON: 01/07/2024 FINDINGS: LUNGS: No focal opacity, pleural effusion, or pneumothorax. HEART/MEDIASTINUM: Cardiac silhouette normal in size. Mediastinal and hilar contours appear normal. LINES/TUBES: None. BONES: No acute osseous abnormality. IMPRESSION: No acute cardiopulmonary abnormality. THIS IS AN ELECTRONICALLY VERIFIED FINAL REPORT 04/06/2024 9:06 AM - Electronically signed by Albert Lopes M.D. KR: CECI Report ID: [id number] Reading Location: [id number] Procedure Note Albert Lopes MD - 04/06/2024 EXAM DESCRIPTION: XR CHEST 1 VIEW REASON FOR STUDY: left arm pain Onset of left shoulder pain Thursday TECHNIQUE: 1 radiographic view(s) of the chest. COMPARISON: 01/07/2024 FINDINGS: LUNGS: No focal opacity, pleural effusion, or pneumothorax. HEART/MEDIASTINUM: Cardiac silhouette normal in size. Mediastinal andhilar contours appear normal. LINES/TUBES: None. BONES: No acute osseous abnormality. IMPRESSION: No acute cardiopulmonary abnormality. THIS IS AN ELECTRONICALLY VERIFIED FINAL REPORT 04/06/2024 9:06 AM - Electronically signed by Albert Lopes M.D. KR: CECI Report ID: [id number] Reading Location: [id number] Lavon COOPER XR PROCEDURES F inal Result * XR Shoulder Left 2 or More Views (04/06/2024 8:55 AM DIVIDEND DEPOSIT VOUCHER CLERK) Anatomical Region Laterality Modality Upper Extremities, Shoulder Left Comp uted Radiography 04/06/2024 9:06 AM DIVIDEND DEPOSIT VOUCHER CLERK Narrative 04/06/2024 9:07 AM DIVIDEND DEPOSIT VOUCHER CLERK EXAM DESCRIPTION: XR SHOULDER LEFT 2 OR MORE VIEWS REASON FOR STUDY: left arm pain Onset of left shoulder pain Thursday TECHNIQUE: Four radiographic view(s) of the left shoulder . COMPARISON: None FINDINGS: No acute fracture or dislocation. The joint spaces are maintained. The soft tissues are unremarkable. IMPRESSION: No acute osseous abnormality. THIS IS AN ELECTRONICALLY VERIFIED FINAL REPORT 04/06/2024 9:07 AM - Electronically signed by Albert Lopes M.D. KR: CECI Report ID: [id number] Reading Location: [id number] Procedure Note Albert Lopes MD - 04/06/2024 EXAM DESCRIPTION: XR SHOULDER LEFT 2 OR MORE VIEWS REASON FOR STUDY: left arm pain Onset of left shoulder pain Thursday TECHNIQUE: Four radiographic view(s) of the left shoulder . COMPARISON: None FINDINGS: No acute fracture or dislocation. The joint spaces aremaintained. The soft tissues are unremarkable. IMPRESSION: No acute osseous abnormality. THIS IS AN ELECTRONICALLY VERIFIED FINAL REPORT 04/06/2024 9:07 AM - Electronically signed by Albert Lopes M.D. KR: CECI Report ID: [id number] Reading Location: [id number] us Lavon COOPER XR PROCEDURES F inal Result * (ABNORMAL) Troponin T high-sensitivity series (baseline, 2hr, 4hr, 6hr) (04/06/2024 8:24 AM DIVIDEND DEPOSIT VOUCHER CLERK) Trop T hs 200(H) <=14 ng/L Comment: Interpretive Data For further hscTnT resources including the diagnostic algorithm and an aid in interpretation, copy and paste this link: https://nrl.testcatalog.org/show/hsTrop Current Interpretive Data last revised 2020. Testing performed by: [address] [address] Blood 04/06/2024 8:24 AM DIVIDEND DEPOSIT VOUCHER CLERK 04/06/2024 8:33 AM DIVIDEND DEPOSIT VOUCHER CLERK us Lavon Castaneda MD LAB BLOOD ORDERABLE S Edited Result - Final YVONNENER [address] [facility] [place] [address] * (ABNORMAL) eGFR (04/06/2024 8:24 AM DIVIDEND DEPOSIT VOUCHER CLERK) eGFR 3(L) >=60 mL/min/1. 73 m2 [...] Current interpretive data was last reviewed 2020. Testing performed by: [address] [address] Blood 04/06/2024 8:24 AM DIVIDEND DEPOSIT VOUCHER CLERK 04/06/2024 8:33 AM DIVIDEND DEPOSIT VOUCHER CLERK us Lavon Castaneda MD LAB BLOOD ORDERABLE S Final Result DENNIS [address] [facility] [place] [address] * (ABNORMAL) Differential, auto (04/06/2024 8:24 AM DIVIDEND DEPOSIT VOUCHER CLERK) Neutrophil abs 3.2 1.5 - 6.5 K/cumm Comment:Testing performed by : [address] [address] Imm gran abs 0.0 0.0 - 0.1 K/cumm DENNIS Comment:Testing performed by : [address] [address] Lymphocyte abs 2.2 0.8 - 3.3 K/cumm DENNIS Comment:Testing performed by : [address] [address] Monocyte abs 0.4 0.2 - 0.8 K/cumm DENNIS Comment:Testing performed by : [address] [address] Eosinophil abs 0.6(H) 0.0 - 0.5 K/cumm DENNIS Comment:Testing performed by : [address] [address] Basophil abs 0.1 0.0 - 0.1 K/cumm DENNIS Comment:Testing performed by : [address] [address] Neutrophil pct 49.0 % DENNIS Comment: Interpretive Data Percent cell count reference ranges are not reported, since discordance with absolute values may lead to misinterpretation of CBC data. Current Interpretive Data was last revised on 2017. Testing performed by: [address] [address] Imm gran pct 0.5 % DENNIS Comment: Interpretive Data Percent cell count reference ranges are not reported, since discordance with absolute values may lead to misinterpretation of CBC data. Current Interpretive Data was last revised on 2017. Testing performed by: [address] [address] Lymphocyte pct 34.0 % [facility] Comment: Interpretive Data Percent cell count reference ranges are not reported, since discordance with absolute values may lead to misinterpretation of CBC data. Current Interpretive Data was last revised on 2017. Testing performed by: [address] [address] Monocyte pct 6.6 % [facility] Comment: Interpretive Data Percent cell count reference ranges are not reported, since discordance with absolute values may lead to misinterpretation of CBC data. Current Interpretive Data was last revised on 2017. Testing performed by: [address] [address] Eosinophil pct 9.0 % [facility] Comment: Interpretive Data Percent cell count reference ranges are not reported, since discordance with absolute values may lead to misinterpretation of CBC data. Current Interpretive Data was last revised on 2017. Testing performed by: [address] [address] Basophil pct 0.9 % [facility] Comment: Interpretive Data Percent cell count reference ranges are not reported, since discordance with absolute values may lead to misinterpretation of CBC data. Current Interpretive Data was last revised on 2017. Testing performed by: [address] [address] Blood 04/06/2024 8:24 AM DIVIDEND DEPOSIT VOUCHER CLERK 04/06/2024 8:33 AM DIVIDEND DEPOSIT VOUCHER CLERK us Lavon Castaneda MD LAB BLOOD ORDERABLE S Final Result DENNIS [address] [facility] [place] [address] * (ABNORMAL) CBC with auto differential (04/06/2024 8:24 AM DIVIDEND DEPOSIT VOUCHER CLERK) WBC 6.5 3.8 - 9.9 K/cumm Comment:Testing performed by : [address] [place] [address] Hgb 10.4(L) 11.9 - 15.5 g/dL DENNIS Comment:Testing performed by : [address] [address] Hct 33.0(L) 35.6 - 45.5 % DENNIS Comment:Testing performed by : [address] [address] Plt 277 150 - 400 K/cumm DENNIS Comment:Testing performed by : [address], [address] MPV 9.6 9.1 - 12.3 fL DENNIS Comment:Testing performed by : [address], [address] RBC 3.98 3.90 - 5.20 M/cumm DENNIS Comment:Testing performed by : [address], [address] MCV 82.9 81.3 - 96.4 fL DENNIS Comment:Testing performed by : [address] [address] MCH 26.1(L) 27.1 - 33.3 pg DENNIS Comment:Testing performed by : [address] [address] MCHC 31.5(L) 32.3 - 35.7 g/dL DENNIS Comment:Testing performed by : [address], [address] RDW CV 15.8(H) 11.1 - 14.9 % DENNIS Comment:Testing performed by : [address], [address] RDW SD 47.7 35.7 - 48.1 fL DENNIS Comment:Testing performed by : [address], [address] NRBC abs 0.00 0.00 - 0.01 K/cumm DENNIS Comment:Testing performed by : [address], [address] Blood 04/06/2024 8:24 AM DIVIDEND DEPOSIT VOUCHER CLERK 04/06/2024 8:33 AM DIVIDEND DEPOSIT VOUCHER CLERK Lavon Castaneda MD LAB BLOOD ORDERABLE S Final Result Performing Organization Address [facility] Co de Phone Number DENNIS [address] [place] [address] * hCG, blood, quantitative (04/06/2024 8:24 AM DIVIDEND DEPOSIT VOUCHER CLERK) [facility] hCG, quant <5.0 0.0 - 5.0 IUnits/L Comment: Interpretive Data Male: < 5 IU/L Non- premenopausal Female: <5 IU/L The Rudy hCG Beta Quant assay procedure was used. Results from different manufacturers or methods may not be comparable. Serial testing should be performed using the same method. Interpretive Data was last revised on 2023 Testing performed by: [address] [address] Blood 04/06/2024 8:24 AM DIVIDEND DEPOSIT VOUCHER CLERK 04/06/2024 8:33 AM DIVIDEND DEPOSIT VOUCHER CLERK us Lavon Castaneda MD LAB BLOOD ORDERABLE S Edited Result - Final Performing Organization Address [facility] de Phone Number DENNIS [address] [place] [address] * (ABNORMAL) Basic metabolic panel (04/06/2024 8:24 AM DIVIDEND DEPOSIT VOUCHER CLERK) [facility] Sodium 139 135 - 145 mmol/L Comment:Testing performed by : [address] [address] Potassium, pl 4.5 3.3 - 4.9 mmol/L DENNIS JOSUE Comment:Testing performed by : [address] [address] Chloride 103 97 - 110 mmol/L DENNIS Comment:Testing performed by : [address] [address] CO2 21(L) 22 - 32 mmol/L DENNIS JOSUE Comment:Testing performed by : [address] [place]., [address] Anion gap 15 2 - 15 mmol/L DENNIS Comment:Testing performed by : [address] [address] BUN 54(H) 6 - 25 mg/dL DENNIS Comment:Testing performed by : [address] [address] Creatinine 13.60(H) 0.60 - 1.10 mg/dL DENNIS Comment:Testing performed by : [address] [address] Glucose 95 70 - 199 mg/dL DENNIS Comment: Interpretive Data Fasting glucose >/= 126 [...] Current interpretive data was last revised 2022. Testing performed by: [address] [address] Calcium 9.3 8.5 - 10.3 mg/dL DENNIS Comment:Testing performed by : [address] [address] Blood 04/06/2024 8:24 AM DIVIDEND DEPOSIT VOUCHER CLERK 04/06/2024 8:33 AM DIVIDEND DEPOSIT VOUCHER CLERK us Lavon Castaneda MD LAB BLOOD ORDERABLE S Final Result [facility] [address] [facility] [place] [address] * ECG 12 lead (04/06/2024 8:18 AM DIVIDEND DEPOSIT VOUCHER CLERK) Ventricular Rate EKG/Min 74 BPM [facility] Atrial Rate 74 BPM [facility] MT-Interval (MSEC) 148 ms [facility] QRS-Interval (MSEC) 70 ms [facility] QT-Interval (MSEC) 422 ms [facility] QTc 468 ms [facility] P Roscoe 65 degrees [facility] R Roscoe 1 degrees [facility] T Roscoe 31 degrees [facility] Diagnosis Normal sinus rhythm Low voltage QRS Septal infarct , age undetermined Abnormal ECG When compared with ECG of 06-MAR-2023 10:29, No significant change was found Confirmed by MEREDITH CANO M.D. ([id number]) on 04/08/2024 7:23:12 PM [facility] 04/06/2024 8:18 AM DIVIDEND DEPOSIT VOUCHER CLERK 04/08/2024 7:23 PM DIVIDEND DEPOSIT VOUCHER CLERK us Lavon Castaneda MD ECG ORDERABLES Fin al Result Performing Organization Address City/[facility]/ZIP Co de Phone Number [facility] * HLA Antibody Screen by PRA or SAB per Schedule (Class I and Class II) (03/29/2024 10:00 AM DIVIDEND DEPOSIT VOUCHER CLERK) Blood 03/29/2024 10:0 0 AM DIVIDEND DEPOSIT VOUCHER CLERK Narrative H[facility] - DIVIDEND DEPOSIT VOUCHER CLERK Sample received in lab. Single Antigen Antibody Screen ordered. us Bashir Alston MD LAB BLOOD ORDERABLES Final R esult Performing Organization Address City/[facility]/ZIP Co de Phone Number [facility] * HLA Antibody Screen - SAB (Class I and Class II) (03/29/2024 10:00 AM DIVIDEND DEPOSIT VOUCHER CLERK) Class I Treatment EDTA [facility] Class [...] per SSO. [facility] 03/29/2024 10:0 0 AM DIVIDEND DEPOSIT VOUCHER CLERK 04/04/2024 10:33 AM DIVIDEND DEPOSIT VOUCHER CLERK Narrative HISTOT[facility] - 04/04/2024 10:33 AM DIVIDEND DEPOSIT VOUCHER CLERK Single-antigen HLA antibody screen is performed on serum samples using a method developed and validated by the [facility] laboratory based on an FDA-approved IVD kit (LABScreen Single-Antigen, [employer], [place], [place]). All patient serum samples are pretreated with EDTA before the screen to prevent complement interference. Additional serum treatments, such as adsorption and DTT treatment, may be performed as indicated. Interpretive comments: Low risk: MFI [id number]. Moderate risk: MFI 6313-1430. Increased risk: MFI >/= 5000. The presence [...] antigens to avoid. Testing performed at the [facility], [address] [place] [address], 5th floor, [place], [address]. CLIA # [id number]. Amber Berry, Ph.D., Ambulatory Service Representative, HLA Laboratory Jonathan Brennan M.D., Ph.D., Utilities Operator, HLA Laboratory Rehana Alarcon, Ph.D., CLIA Utilities Operator, [facility] Current methodology and interpretive comments last revised on 03/20/2022. us Bashir Alston MD LAB BLOOD ORDERABLES Edited Result - Final [facility] * STRESS ECHO PHARMACOLOGIC W DOPPLER/CF W CONTRAST (02/26/2024 10:12 AM DIVIDEND DEPOSIT VOUCHER CLERK) LV EF 58 % CARDIOREPORT Anatomical Region Laterality Modality Ultrasound 02/26/2024 8:00 AM DIVIDEND DEPOSIT VOUCHER CLERK Narrative 02/26/2024 11:07 AM DIVIDEND DEPOSIT VOUCHER CLERK Patient name: Bakari Smith Date of test: 02/26/2024 Hospital #: 0 Location: [facility] Interpreted by: Kip Pena M.D. Ph.D. Coremaker Supervisor: Lainey Oh RDCS RN: Hilda Monk RN Reason for Test: pre-kidney transplant evaluation Study quality: Technically good Referring Physician: TONYA HAMMONDS MD Contrast Agent: 0.45 ml Definity Administered, (1.05 ml wasted). BASELINE STUDY: Wall Motion Scoring (1=Normal 2=Hypo 3=Akinetic 4=Dyskin./Aneurysm 0=Not visualized) Parasternal Long Roscoe:MAS=1 BAS=1 MIL=1 RENATO=1 Parasternal Short Roscoe:MAS=1 MIS=1 OK=1 MIL=1 MAL=1 MA=1 Apical 4 Chambers:=1 MIS=1 BIS=1 BAL=1 MAL=1 AL=1 AC=1 Apical 2 Chambers:AI=1 OK=1 BI=1 BA=1 MA=1 AA=1 AC=1 Ejection Fraction: [...] 2=Hypo 3=Akinetic 4=Dyskin./Aneurysm 0=Not visualized) Parasternal Long Roscoe:MAS=1 BAS=1 MIL=1 RENATO=1 Parasternal Short Roscoe:MAS=1 MIS=1 OK=1 MIL=1 MAL=1 MA=1 Apical 4 Chambers:=1 MIS=1 BIS=1 BAL=1 MAL=1 AL=1 AC=1 Apical 2 Chambers:AI=1 OK=1 BI=1 BA=1 MA=1 AA=1 AC=1 Intravenous dobutamine [...] Ph.D. By signing this report, the attending grade recorder certifies that he or she has personally supervised and interpreted the echocardiogram and has reviewed and or edited and agrees with the written comments contained within the report. Procedure Note Kip Pena MD PhD - 02/26/2024 Patient name: Bakari Smith Date of test: 02/26/2024 Hospital #: 0 Location: [facility] Interpreted by: Kip Pena M.D. Ph.D. Coremaker Supervisor: Lainey Oh RDCS RN: Hilda Monk RN Reason for Test: pre-kidney transplant evaluation Study quality: Technically good Referring Physician: TONYA HAMMONDS MD Contrast Agent: 0.45 ml Definity Administered, (1.05 ml wasted). BASELINE STUDY: Wall Motion Scoring (1=Normal 2=Hypo 3=Akinetic 4=Dyskin./Aneurysm 0=Not visualized) Parasternal Long Roscoe:MAS=1 BAS=1 MIL=1 RENATO=1 Parasternal Short Roscoe:MAS=1 MIS=1 OK=1 MIL=1 MAL=1 MA=1 Apical 4 Chambers:=1 MIS=1 BIS=1 BAL=1 MAL=1 AL=1 AC=1 Apical 2 Chambers:AI=1 OK=1 BI=1 BA=1 MA=1 AA=1 AC=1 Ejection Fraction: [...] 2=Hypo 3=Akinetic 4=Dyskin./Aneurysm 0=Not visualized) Parasternal Long Roscoe:MAS=1 BAS=1 MIL=1 RENATO=1 Parasternal Short Roscoe:MAS=1 MIS=1 OK=1 MIL=1 MAL=1 MA=1 Apical 4 Chambers:=1 MIS=1 BIS=1 BAL=1 MAL=1 AL=1 AC=1 Apical 2 Chambers:AI=1 OK=1 BI=1 BA=1 MA=1 AA=1 AC=1 Intravenous dobutamine [...] Ph.D. By signing this report, the attending grade recorder certifies that he or she has personally supervised and interpreted the echocardiogram and has reviewed and or edited and agrees with the written comments contained within the report. us Tonya Hammonds MD CV ECHO PROCEDURES Final Result * HLA Antibody Screen by PRA or SAB per Schedule (Class I and Class II) (02/26/2024 10:00 AM DIVIDEND DEPOSIT VOUCHER CLERK) Blood 02/26/2024 10:0 0 AM DIVIDEND DEPOSIT VOUCHER CLERK Narrative HISTOTRAC - DIVIDEND DEPOSIT VOUCHER CLERK Sample received in lab and stored. No testing performed at this time. us Bashir Alston MD LAB BLOOD ORDERABLES Final R esult [facility] * (ABNORMAL) eGFR (02/16/2024 11:34 AM DIVIDEND DEPOSIT VOUCHER CLERK) eGFR 4(L) >=60 mL/min/1. 73 m2 [...] reviewed 2020. Blood 02/16/2024 11:3 4 AM DIVIDEND DEPOSIT VOUCHER CLERK 02/16/2024 12:02 PM DIVIDEND DEPOSIT VOUCHER CLERK us Tonya Hammonds MD LAB BLOOD ORDERABLE S Final Result [facility] Department [place] [address] * Differential, auto (02/16/2024 11:34 AM DIVIDEND DEPOSIT VOUCHER CLERK) Neutrophil abs 5.1 1.5 - 6.5 K/cumm Imm gran abs 0.1 0.0 - 0.1 K/cumm [facility] Lymphocyte abs 2.0 0.8 - 3.3 K/cumm [facility] Monocyte abs 0.6 0.2 - 0.8 K/cumm [facility] Eosinophil abs 0.1 0.0 - 0.5 K/cumm [facility] Basophil abs 0.0 0.0 - 0.1 K/[facility] Neutrophil pct 64.7 % [facility] Comment: Interpretive Data Percent cell count reference ranges are not reported, since discordance with absolute values may lead to misinterpretation of CBC data. Current Interpretive Data was last revised on 2017. Imm gran pct 0.6 % [facility] Comment: Interpretive Data Percent cell count reference ranges are not reported, since discordance with absolute values may lead to misinterpretation of CBC data. Current Interpretive Data was last revised on 2017. Lymphocyte pct 25.3 % [facility] Comment: Interpretive Data Percent cell count reference ranges are not reported, since discordance with absolute values may lead to misinterpretation of CBC data. Current Interpretive Data was last revised on 2017. Monocyte pct 7.3 % [facility] Comment: Interpretive Data Percent cell count reference ranges are not reported, since discordance with absolute values may lead to misinterpretation of CBC data. Current Interpretive Data was last revised on 2017. Eosinophil pct 1.8 % [facility] Comment: Interpretive Data Percent cell count reference ranges are not reported, since discordance with absolute values may lead to misinterpretation of CBC data. Current Interpretive Data was last revised on 2017. Basophil pct 0.3 % [facility] Comment: Interpretive Data Percent cell count reference ranges are not reported, since discordance with absolute values may lead to misinterpretation of CBC data. Current Interpretive Data was last revised on 2017. Blood 02/16/2024 11:3 4 AM DIVIDEND DEPOSIT VOUCHER CLERK 02/16/2024 11:45 AM DIVIDEND DEPOSIT VOUCHER CLERK us Tonya Hammonds MD LAB BLOOD ORDERABLE S Final Result Performing Organization Address City/[facility] Co de Phone Number [facility] [place] [address] * HIV 1/2 Antibody plus p24 Antigen Blood (02/16/2024 11:34 AM DIVIDEND DEPOSIT VOUCHER CLERK) [facility] HIV 1/2 ab + p24 ag Nonreactive Nonreactive Comment:Nonreactive for HIV- 1 antigen and HIV-1/HIV-2 antibodies. No laboratory evidence of HIV infection. If acute HIV infection is suspected, consider testing for HIV-1 RNA. Current interpretive data was last revised on 21. Blood 02/16/2024 11:3 4 AM DIVIDEND DEPOSIT VOUCHER CLERK 02/16/2024 11:45 AM DIVIDEND DEPOSIT VOUCHER CLERK us Tonya Hammonds MD LAB MICROBIOLOGY - GENERAL ORDERABLES Final Result Performing Organization Address [facility] Co de Phone Number [facility] Department [place] [address] * (ABNORMAL) CBC with auto differential (02/16/2024 11:34 AM DIVIDEND DEPOSIT VOUCHER CLERK) [facility] WBC 7.8 3.8 - 9.9 K/cumm Hgb 8.6(L) 11.9 - 15.5 g/dL [facility] Hct 28.3(L) 35.6 - 45.5 % [facility] Plt 265 150 - 400 K/cumm [facility] MPV 10.2 9.1 - 12.3 fL [facility] RBC 3.24(L) 3.90 - 5.20 M/cumm [facility] MCV 87.3 81.3 - 96.4 fL [facility] MCH 26.5(L) 27.1 - 33.3 pg [facility] MCHC 30.4(L) 32.3 - 35.7 g/dL [facility] RDW CV 14.9 11.1 - 14.9 % [facility] RDW SD 48.1 35.7 - 48.1 fL [facility] NRBC abs 0.00 0.00 - 0.01 K/cumm [facility] Blood 02/16/2024 11:3 4 AM DIVIDEND DEPOSIT VOUCHER CLERK 02/16/2024 11:45 AM DIVIDEND DEPOSIT VOUCHER CLERK Tonya Hammonds MD LAB BLOOD ORDERABLE S Final Result [facility] [place] [employer] [place] [address] * Hepatitis C antibody Blood (02/16/2024 11:34 AM DIVIDEND DEPOSIT VOUCHER CLERK) Pathologist [facility] Hep C Ab Nonreactive Nonreactive Comment:Antibodies to HCV no t detected. Does NOT exclude the possibility of recent exposure to HCV. Current interpretive data was last revised on 21 Blood 02/16/2024 11:3 4 AM DIVIDEND DEPOSIT VOUCHER CLERK 02/16/2024 11:45 AM DIVIDEND DEPOSIT VOUCHER CLERK us Tonya Hammonds MD LAB MICROBIOLOGY - GENERAL ORDERABLES Final Result Performing Organization Address [facility] Co de Phone Number [facility] [place] [place] [address] * Hepatitis B core antibody, total Blood (02/16/2024 11:34 AM DIVIDEND DEPOSIT VOUCHER CLERK) Pathologist [facility] Hep B core IgG/IgM Nonreactive Nonreactive Blood 02/16/2024 11:3 4 AM DIVIDEND DEPOSIT VOUCHER CLERK 02/16/2024 11:45 AM DIVIDEND DEPOSIT VOUCHER CLERK Tonya Hammonds MD LAB MICROBIOLOGY - GENERAL ORDERABLES Final Result Performing Organization Address City/[facility] Co de Phone Number [facility] [place] [place] [address] * Hepatitis B surface antibody (immune status) Blood (02/16/2024 11:34 AM DIVIDEND DEPOSIT VOUCHER CLERK) Pathologist [facility] HBsAb (immune status) Reactive Comment:This result is consi stent with immunity to Hepatitis B Virus when used in the setting of routine screening. Current interpretive data was last revised on 21 HBsAb (immune status) index 221.0 mIUnits/m L [facility] Blood 02/16/2024 11:3 4 AM DIVIDEND DEPOSIT VOUCHER CLERK 02/16/2024 11:45 AM DIVIDEND DEPOSIT VOUCHER CLERK Tonya Hammonds MD LAB MICROBIOLOGY - GENERAL ORDERABLES Final Result [facility] Department [place] [employer] [place] [address] * Hepatitis B Surface Antigen Blood (02/16/2024 11:34 AM DIVIDEND DEPOSIT VOUCHER CLERK) [facility] HepBsAg Nonreactive Nonreactive Blood 02/16/2024 11:3 4 AM DIVIDEND DEPOSIT VOUCHER CLERK 02/16/2024 11:45 AM DIVIDEND DEPOSIT VOUCHER CLERK Tonya Hammonds MD LAB MICROBIOLOGY - GENERAL ORDERABLES Final Result Performing Organization Address City/[facility]/ZIP Co de Phone Number [facility] Department [place] [address] * (ABNORMAL) Phosphorus (02/16/2024 11:34 AM DIVIDEND DEPOSIT VOUCHER CLERK) Pathologist [facility] Phosphorus, pl 5.6(H) 2.3 - 4.5 mg/dL Blood 02/16/2024 11:3 4 AM DIVIDEND DEPOSIT VOUCHER CLERK 02/16/2024 11:45 AM DIVIDEND DEPOSIT VOUCHER CLERK Tonya Hammonds MD LAB BLOOD ORDERABLE S Final Result Performing Organization Address City/[facility]/ZIP Co de Phone Number [facility] Department [place] [address] * (ABNORMAL) PTH (02/16/2024 11:34 AM DIVIDEND DEPOSIT VOUCHER CLERK) [facility] PTH 335(H) 15 - 65 pg/mL Blood 02/16/2024 11:3 4 AM DIVIDEND DEPOSIT VOUCHER CLERK 02/16/2024 11:45 AM DIVIDEND DEPOSIT VOUCHER CLERK Tonya Hammonds MD LAB BLOOD ORDERABLE S Final Result Performing Organization Address [facility] de Phone Number [facility] [place] [place] [address] * (ABNORMAL) Hemoglobin A1c (02/16/2024 11:34 AM DIVIDEND DEPOSIT VOUCHER CLERK) [facility] Hgb A1C 6.2(H) 4.0 - 5.6 % Estimated Average Glucose 131 mg/dL [facility] Comment: The ADA recommends reporting an estimated Average Glucose (eAG) with all Hemoglobin A1c results using the equation derived from a study of 507 normal and diabetic adults. Minority populations were underrepresented and children were not included. (Diabetes Care 2020; 43(S1): S66-S76). The eAG is not equivalent to a fasting glucose. Blood 02/16/2024 11:3 4 AM DIVIDEND DEPOSIT VOUCHER CLERK 02/16/2024 11:45 AM DIVIDEND DEPOSIT VOUCHER CLERK Tonya Hammonds MD LAB BLOOD ORDERABLE S Final Result Performing Organization Address [facility] de Phone Number [facility] [place] [place] [address] * (ABNORMAL) Comprehensive metabolic panel (02/16/2024 11:34 AM DIVIDEND DEPOSIT VOUCHER CLERK) [facility] Sodium 140 135 - 145 mmol/L Potassium, pl 4.4 3.3 - 4.9 mmol/L [facility] Chloride 102 97 - 110 mmol/L [facility] CO2 28 22 - 32 mmol/L [facility] Anion gap 10 2 - 15 mmol/L [facility] BUN 46(H) 6 - 25 mg/dL [facility] Creatinine 10.77(H) 0.60 - 1.10 mg/dL [facility] Glucose 223(H) 70 - 199 mg/dL [facility] Comment: Interpretive Data Fasting glucose >/= [...] 2022. Calcium 8.8 8.5 - 10.3 mg/dL [facility] Bilirubin, total 0.2 0.1 - 1.2 mg/dL [facility] Protein, pl 6.8 6.5 - 8.5 g/dL [facility] Albumin 3.1(L) 3.5 - 5.0 g/dL [facility] Alk phos 233(H) 40 - 130 Units/L [facility] ALT 57(H) 7 - 45 Units/L [facility] AST 50(H) 10 - 45 Units/L [facility] Blood 02/16/2024 11:3 4 AM DIVIDEND DEPOSIT VOUCHER CLERK 02/16/2024 11:45 AM DIVIDEND DEPOSIT VOUCHER CLERK us Tonya Hammonds MD LAB BLOOD ORDERABLE S Final Result [facility] Department [place] [address] * Colonoscopy (07/21/2023 10:23 AM CDT) Anatomical Region Laterality Modality Other Narrative Procedure Note Early, Haritha Coronado MD - 07/21/2023 10:23 AM CDT [facility] Patient Name: Bakari Smith Procedure Date: 07/21/2023 10:23 AM Date of : 1980 Admit Type: Outpatient Age: 43 Gender: Female Attending MD: Haritha Stover M.D. Room: [facility] ENDOSCOPY ROOM 02 Note Status: Finalized Procedure: [...] The scope was passed under direct vision.The [id number] Colonoscope was introducedthrough the anus and advanced to the the cecum, identifiedby appendiceal orifice and ileocecal valve. The colonoscopy was performed without difficulty. The patient tolerated the procedure well. The qualityof the bowel preparation was evaluated using the BBPS (Seibert Bowel Preparation Scale) with scores of:Right Colon [...] On: 07/21/2023 10:23 AM Recognized by the [place] [employer] for promoting quality in endoscopy Haritha Stover MD ENDOSCOPY PROCEDURES Final Res ult * HM MAMMOGRAPHY (06/04/2021) Impressions Rashida Schneider - 06/04/2021 IMPRESSION: 1. Benign mammogram. READ BY: NINO BAJWA MD 06/05/2021 us Historical Provider HEALTH MAINTENANCE Final Result * Lipid panel (04/30/2021 12:22 PM DIVIDEND DEPOSIT VOUCHER CLERK) Cholesterol 139 30 - 199 mg/dL [facility] Comment: Interpretive Data Ages < or [...] revised on 2017. Triglycerides 64 <=149 mg/dL [facility] Comment: Interpretive Data Ages < [...] Pediatrics 2011;128:S213 2. NCEP Expert Panel. Circulation 2003;110:227 Current Interpretive Data was last revised on 2017. HDL 70 >=40 mg/dL [facility] Comment: Interpretive Data Ages < or = 19 years Acceptable: >45 mg/dL Borderline low: 40-45 mg/dL Low: <40 mg/dL Ages > or = 20 years Desirable: >or= 60 mg/dL Low: <40 mg/dL Literature References: 1. Expert Panel on Integrated Guidelines for Cardiovascular Health and Risk Reduction in Children and Adolescents. Pediatrics 2011;128:S213 2. NCEP Expert Panel. Circulation 2003;110:227 Current Interpretive Data was last revised on 2017. LDL, calculated 56 <=129 mg/dL [facility] Comment: Interpretive Data Ages < [...] on 2017. Non-HDL Cholesterol 69 mg/dL [facility] Comment: Interpretive Data Ages < or [...] last revised on 2017. Chol/HDL ratio [facility] Blood 04/30/2021 12:2 2 PM DIVIDEND DEPOSIT VOUCHER CLERK 04/30/2021 1:03 PM DIVIDEND DEPOSIT VOUCHER CLERK us Ren Pelayo MD LAB BLOOD ORDERABLES Final Result [facility] Department [place] [address] from Last 3 Months or Most Recently Relevant to Health Maintenance Insurance [facility] [facility] IDPA MEDICARE MEDICARE [facility] MEDICARE [facility] MEDICARE SUPPLEMENT MEDICARE [facility] MEDICARE SUPPLEMENT Advance Directives For more information, please contact: [phone] * Full Code (Latest Code Status on File) Date Activated Date Inactivated Comments 07/21/2023 9:59 AM 07/21/2023 3:56 PM Care Teams Cnc Mill Operator Relationship Specialty Start Date End Date No, Physician PCP - General 02/16/24 Almita Rizzo, RN [address] [facility] [address] [place] [address] Regulatory Affairs Internship 04/04/21 Beth Fernandez MD [address] [place] [address] Referring Physician Nephrology 04/04/21 Maday Oviedo MD [address] [place] [address] Neurology 09/12/22 Tomasz Scott DO [address] [place], [place] [id number] Policy Adviser Cardiology 09/16/22 Meir Nazario MD [address] [place] [address] Obstetrics and Gynecology 04/11/24
--- OUTSIDE RECORDS SUMMARY | 2024-05-05 14:59 | XMS_ITS | Encounter Summary ---
Author Organization [facility] Healthcare Address [address] [place] [address] Care Team Providers Care General Teller Name Role Phone Jessie Dickson NP Primary Care Provider [phone] Almita Rizzo RN Unavailable [phone] Beth Fernandez MD Unavailable [phone] Maday Oviedo MD Unavailable [phone] Tomasz Scott DO Unavailable [phone] Bashir Alston MD Primary Care Provider [phone] No, Physician Primary Care Provider [phone] Meir Nazario MD Unavailable [phone] Reason for Visit * Reason Onset Date Comments READY TO SCHEDULE 04/28/2023 Encounter Details Date Type Department Care Team (Late st Contact Info) Description 04/28/2023 Telephone [facility] Specialty Services [address] [place] [address] Miscellaneous, Not In File READY TO SCHEDULE [...] on file Legal Sex Female 11:50 PM LOAN REVIEW OFFICER Gender Identity Not on file Sexual Orientation Not on file documented as of this encounter Plan of Treatment Not on file documented as of this encounter Visit Diagnoses Not on filedocumented in this encounter Additional Health Concerns Infection Onset Date Last Indicated Resolved Time COVID: Suspected 12/01/2023 12/01/2023 12/01/2023 7:33 PM CDT documented as of this encounter Care Teams General Teller Relationship Specialty Start Date End Date Jessie Dickson NP [address] [place] [address] PCP - General Nurse Practitioner 03/05/21 07/07/23 Bashir Alston MD [address] [facility] [address] [place] [address] PCP - General Transplant 07/08/23 07/08/23 No, Physician PCP - General 02/16/24 Almita Rizzo, RN [address] [facility] [address] [place] [address] Narrow Fabric Calenderer 04/04/21 Beth Fernandez MD [address] [facility] [address] [place] [address] Referring Physician Nephrology 04/04/21 Maday Oviedo MD [address] [facility] [address] [place] [address] Neurology 09/12/22 Tomasz Scott DO [address] [place] [address] Tool And Die Technician Cardiology 09/16/22 Meir Nazario MD [address] [facility] [address] [place] [address] Obstetrics and Gynecology 04/11/24 documented as of this encounter
--- OUTSIDE RECORDS SUMMARY | 2024-05-05 14:59 | XMS_ITS | Referral Summary ---
Author Organization [facility] [place] at the [facility] Office Center Address [address] [place] [address] Care Team Providers Care Lead Systems Engineer Name Role Phone Almita Rizzo RN Unavailable Beth Fernandez MD Unavailable [phone] Maday Oviedo MD Unavailable [phone] Tomasz Scott DO Unavailable [phone], Physician Primary Care Provider [phone] Meir Nazario MD Unavailable [phone] Encounters Date Type Department Care Team Description 04/29/2024 Telephone [facility] Transplant Kidney [address] [facility] [address] [id number] [place] [address] Hien Mireles 04/29/2024 Telephone [facility] Transplant Kidney [address] [facility] [address] [id number] [place] [address] Suad Hou 04/11/2024 Telephone [facility] Transplant Kidney [address] [facility] [address] [id number] [place] [address] Almita Rizzo, RN Waitlist Maintenance 04/06/2024 11:14 AM POLE PEELING MACHINE OPERATOR - 04/06/2024 12:22 PM [facility] Emergency [facility] Emergency Department [facility] [place] [address] Lavon Castaneda MD Pain of left upper extremity (Primary Dx) Discharge Disposition: Discharge to home or self care 03/29/2024 10:00 AM POLE PEELING MACHINE OPERATOR - 03/29/2024 11:59 PM POLE PEELING MACHINE OPERATOR Hospital Encounter [address] [address] Pre-transplant evaluation for kidney transplant; ESRD (end stage renal disease) (HCC) Discharge Disposition: Discharge to home or self care 03/22/2024 Documentation [facility] [place] [facility] Transplant Kidney [address] [facility] [address] Mail[address] [id number] [place] [address] Almita Rizzo RN Waitlist Maintenance 02/29/2024 Telephone [facility] [place] [facility] Transplant Kidney [address] [facility] [address] [id number] [place] [address] Almita Rizzo RN Waitlist Maintenance 02/26/2024 10:00 AM POLE PEELING MACHINE OPERATOR - 02/26/2024 11:59 PM POLE PEELING MACHINE OPERATOR Hospital Encounter [address] [address] Pre-transplant evaluation for kidney transplant; ESRD (end stage renal disease) (HCC) Discharge Disposition: Discharge to home or self care 02/26/2024 7:21 AM POLE PEELING MACHINE OPERATOR - 02/26/2024 11:59 PM POLE PEELING MACHINE OPERATOR Hospital Encounter [facility] [address] [place] [address] Pre-kidney transplant, patient on transplant list; ESRD (end stage renal disease) (HCC) Discharge Disposition: Discharge to home or self care 02/18/2024 Documentation [facility] Transplant Kidney [address] [facility] [address] [id number] [place] [address] Anjali Gastelum Appointment/Schedul es 02/18/2024 Documentation [facility] [place] [facility] Transplant Kidney [address] [facility] [address] [phone] [place] [address] Almita Rizzo RN Waitlist Maintenance 02/16/2024 11:25 AM POLE PEELING MACHINE OPERATOR Lab [facility] ([facility]) [address] [place] [address] Pre-kidney transplant, patient on transplant list; ESRD (end stage renal disease) (HCC) from Last 3 Months Allergies Active Allergy [...] within 12 hours or as directed by . 5 patch 5 05/07/19 25 Active Active Problems Problem Noted Date Diagnosed Date Screening for colorectal cancer 07/08/2023 Pre-transplant evaluation for kidney transplant 07/08/2023 Pain of left upper extremity 06/24/2023 Encounter for surgical after care following surgery of circulatory system 07/04/2022 Ovarian mass 04/10/2022 Overview (04/10/2022): Added automatically from request for surgery [id number] Hypertension 2021 Stage 5 chronic kidney disease [...] 09/17/2012 04/09/2022 Diabetes mellitus 06/21/2010 04/09/2022 Immunizations Immunization Administration Dates Next Due Hep B Vaccine 2023,10/06/2022,04/18/2021 Influenza, Mdck, Trivalent, Contains Preservative (MDV) 11/27/2023 Influenza, Quadrivalent, Spl it, Intramuscular 02/03/2023,12/27/2021 PPD TEST 05/25/2023,07/30/2022 Pneumococcal Conjugate 7-Valent 03/03/2018 Pneumococcal Conjugate PCV 13 04/18/2021 Pneumococcal Conjugate Pcv20 2023 Pneumococcal Polysaccharide PPV23 07/09/2017 Pneumococcal, Unspecified 04/18/2021 Tdap 07/09/2017 Social History Tobacco Use Types [...] on file Legal Sex Female 11:50 PM POLE PEELING MACHINE OPERATOR Gender Identity Not on file Sexual Orientation Not on file Last Filed Vital Signs Vital Sign Reading Time Taken Comments Blood Pressure 198/97 04/06/2024 12:20 PM POLE PEELING MACHINE OPERATOR Pulse 80 04/06/2024 12:20 PM POLE PEELING MACHINE OPERATOR Temperature 36.4 C (97.5 F) 04/06/2024 7:45 AM POLE PEELING MACHINE OPERATOR Respiratory Rate 18 04/06/2024 12:20 PM POLE PEELING MACHINE OPERATOR Oxygen Saturation 95% 04/06/2024 11:32 AM POLE PEELING MACHINE OPERATOR Inhaled Oxygen Concentration - - Weight 92.3 kg (203 lb 7.8 oz) 04/06/2024 7:45 A M POLE PEELING MACHINE OPERATOR Height 160 cm (5' 3 ) 02/26/2024 8:40 AM POLE PEELING MACHINE OPERATOR Body Mass Index 36.05 02/26/2024 8:40 AM POLE PEELING MACHINE OPERATOR Plan of Treatment Not on file Medical Devices Implanted Type Area Fruit Grading Supervisor Device Identifier Shelf Expiration Date Model / Serial / Lot [employer] [id number] [place] 15fr 62cm 2 Cuff Radiopaque Peritoneal Curl Catheter - Sn/A - [id number] Implanted:Qty : 1 on 03/14/2021 by Gildardo Leggett MD at [facility] Catheter N/A: Abdomen [employer] 07/01/2025 [id number] / N/A / [id number] Description:Peritoneal Dialy sis Catheter, Curl Cath, 2 Cuffs Graft Vasc 45cm 4-6mm Holderness Acuseal Eptfe 3 Layer Kink Rst - [id number] - [id number] Implanted:Qty : 1 on 05/08/2022 by Uche Katz MD at [facility] Graft Left: Arm Wl [employer] [id number] 05/21/2024 [id number] / [id number] / 00 Procedures Procedure Name Priority Date/Time Associated Diagnosis Comments TROPONIN T HIGH-SENSITIVITY 2-HOUR Timed 04/06/2024 11:12 AM POLE PEELING MACHINE OPERATOR XR SHOULDER LEFT 2 OR MORE VIEWS ED 04/06/2024 8:55 AM POLE PEELING MACHINE OPERATOR XR CHEST 1 VIEW ED 04/06/2024 8:55 AM POLE PEELING MACHINE OPERATOR EGFR STAT 04/06/2024 8:24 AM POLE PEELING MACHINE OPERATOR DIFFERENTIAL AUTO STAT 04/06/2024 8:2 4 AM POLE PEELING MACHINE OPERATOR HCG, BLOOD, QUANTITATIVE STAT 04/06/2024 8:24 AM POLE PEELING MACHINE OPERATOR TROPONIN T HIGH-SENSITIVITY SERIES (BASELINE, 2HR, 4HR, 6HR) STAT 04/06/2024 8:24 AM POLE PEELING MACHINE OPERATOR BASIC METABOLIC PANEL STAT 04/06/2024 8:24 AM POLE PEELING MACHINE OPERATOR CBC WITH AUTO DIFFERENTIAL STAT 04/06/2024 8:24 AM POLE PEELING MACHINE OPERATOR ECG 12-LEAD STAT 04/06/2024 8:18 AM POLE PEELING MACHINE OPERATOR HLA ANTIBODY SCREEN - SAB (CLASS I AND CLASS II) Routine 03/29/2024 10:00 AM POLE PEELING MACHINE OPERATOR Pre-transplant evaluation for kidney transplant ESRD (end stage renal disease) ([facility]) HLA ANTIBODY SCREEN BY PRA OR SAB PER SCHEDULE (CLASS I AND CLASS II) Routine 03/29/2024 10:00 AM POLE PEELING MACHINE OPERATOR Pre-transplant evaluation for kidney transplant ESRD (end stage renal disease) ([facility]) STRESS ECHO PHARMACOLOGIC W DOPPLER/CF W CONTRAST Routine 02/26/2024 10:12 AM POLE PEELING MACHINE OPERATOR Pre-kidney transplant, patient on transplant list ESRD (end stage renal disease) ([facility]) HLA ANTIBODY SCREEN BY PRA OR SAB PER SCHEDULE (CLASS I AND CLASS II) Routine 02/26/2024 10:00 AM POLE PEELING MACHINE OPERATOR Pre-transplant evaluation for kidney transplant ESRD (end stage renal disease) ([facility]) EGFR Routine 02/16/2024 11:34 AM POLE PEELING MACHINE OPERATOR Pre-kidney transplant, patient on transplant list ESRD (end stage renal disease) (HCC) DIFFERENTIAL AUTO Routine 02/16/2024 11: 34 AM POLE PEELING MACHINE OPERATOR Pre-kidney transplant, patient on transplant list ESRD (end stage renal disease) (HCC) CBC WITH AUTO DIFFERENTIAL Routine 02/16/2024 11:34 AM POLE PEELING MACHINE OPERATOR Pre-kidney transplant, patient on transplant list ESRD (end stage renal disease) (HCC) COMPREHENSIVE METABOLIC PANEL Routine 02/16/2024 11:34 AM POLE PEELING MACHINE OPERATOR Pre-kidney transplant, patient on transplant list ESRD (end stage renal disease) (HCC) PHOSPHORUS Routine 02/16/2024 11:34 AM POLE PEELING MACHINE OPERATOR Pre-kidney transplant, patient on transplant list ESRD (end stage renal disease) (HCC) PTH Routine 02/16/2024 11:34 AM POLE PEELING MACHINE OPERATOR Pre-kidney transplant, patient on transplant list ESRD (end stage renal disease) (HCC) HEMOGLOBIN A1C Routine 02/16/2024 11:34 AM POLE PEELING MACHINE OPERATOR Pre-kidney transplant, patient on transplant list ESRD (end stage renal disease) (HCC) HIV 1/2 ANTIBODY PLUS P24 ANTIGEN Routine 02/16/2024 11:34 AM POLE PEELING MACHINE OPERATOR Pre-kidney transplant, patient on transplant list ESRD (end stage renal disease) (HCC) HEPATITIS B SURFACE ANTIBODY (IMMUNE STATUS) Routine 02/16/2024 11:34 AM POLE PEELING MACHINE OPERATOR Pre-kidney transplant, patient on transplant list ESRD (end stage renal disease) (HCC) HEPATITIS B SURFACE ANTIGEN Routine 02/16/2024 11:34 AM POLE PEELING MACHINE OPERATOR Pre-kidney transplant, patient on transplant list ESRD (end stage renal disease) (HCC) HEPATITIS C ANTIBODY Routine 02/16/2024 11:34 AM POLE PEELING MACHINE OPERATOR Pre-kidney transplant, patient on transplant list ESRD (end stage renal disease) (HCC) HEPATITIS B CORE ANTIBODY, TOTAL Routine 02/16/2024 11:34 AM POLE PEELING MACHINE OPERATOR Pre-kidney transplant, patient on transplant list ESRD (end stage renal disease) (HCC) COLONOSCOPY 07/21/2023 10:23 AM CDT HM MAMMOGRAPHY Routine 06/04/2021 LIPID PANEL Routine 04/30/2021 12:22 PM POLE PEELING MACHINE OPERATOR Pre-transplant evaluation for kidney transplant End stage renal disease (HCC) from Last 3 Months or Most Recently Relevant to Health Maintenance Results * (ABNORMAL) Troponin T high-sensitivity 2-hour (04/06/2024 11:12 AM POLE PEELING MACHINE OPERATOR) Trop T hs 195(H) <=14 ng/L Comment: Interpretive Data For further hscTnT resources including the diagnostic algorithm and an aid in interpretation, copy and paste this link: https://nrl.testcatalog.org/show/hsTrop Current Interpretive Data last revised 2020. Testing performed by: [address] [address] Trop T hs pct delta -3 % DENNIS JOSUE Comment:Testing performed by : [address] [address] Trop T hs interp Insignificant DENNIS JOSUE Comment:Testing performed by : [address] [address] Blood 04/06/2024 11:1 2 AM POLE PEELING MACHINE OPERATOR 04/06/2024 11:21 AM POLE PEELING MACHINE OPERATOR us Lavon Castaneda MD LAB BLOOD ORDERABLE S Final Result DENNIS JOSUE [address] [facility] Department [place] [address] * XR Chest 1 Vw Portable (04/06/2024 8:55 AM POLE PEELING MACHINE OPERATOR) Anatomical Region Laterality Modality Body, Chest N/A Computed Radiogr aphy 04/06/2024 9:06 AM POLE PEELING MACHINE OPERATOR Narrative 04/06/2024 9:06 AM POLE PEELING MACHINE OPERATOR EXAM DESCRIPTION: XR CHEST 1 VIEW REASON [...] Albert Lopes M.D. KR: CECI Report ID: [id number] Reading Location: [id number] Procedure Note Albert Lopes MD - 04/06/2024 [...] Albert Lopes M.D. KR: CECI Report ID: [id number] Reading Location: [id number] Lavon Castaneda MD IMG XR PROCEDURES F inal Result * XR Shoulder Left 2 or More Views (04/06/2024 8:55 AM POLE PEELING MACHINE OPERATOR) Anatomical Region Laterality Modality Upper Extremities, Shoulder Left Comp uted Radiography 04/06/2024 9:06 AM POLE PEELING MACHINE OPERATOR Narrative 04/06/2024 9:07 AM POLE PEELING MACHINE OPERATOR EXAM DESCRIPTION: XR SHOULDER LEFT 2 OR [...] Albert Lopes M.D. KR: CECI Report ID: [id number] Reading Location: [id number] Procedure Note Albert Lopes MD - 04/06/2024 [...] Albert Lopes M.D. KR: CECI Report ID: [id number] Reading Location: [id number] Lavon Castaneda MD IMG XR PROCEDURES F inal Result * (ABNORMAL) Troponin T high-sensitivity series (baseline, 2hr, 4hr, 6hr) (04/06/2024 8:24 AM POLE PEELING MACHINE OPERATOR) Trop T hs 200(H) <=14 ng/L Comment: Interpretive Data For further hscTnT resources including the diagnostic algorithm and an aid in interpretation, copy and paste this link: https://nrl.testcatalog.org/show/hsTrop Current Interpretive Data last revised 2020. Testing performed by: [address] [address] Blood 04/06/2024 8:24 AM POLE PEELING MACHINE OPERATOR 04/06/2024 8:33 AM POLE PEELING MACHINE OPERATOR us Lavon Castaneda MD LAB BLOOD ORDERABLE S Edited Result - Final Performing Organization Address [facility] Co de Phone Number DENNIS [facility] [place] [address] * (ABNORMAL) eGFR (04/06/2024 8:24 AM POLE PEELING MACHINE OPERATOR) eGFR 3(L) >=60 mL/min/1. 73 [...] was last reviewed 2020. Testing performed by: [facility], [address] [place] [address]., [address] Blood 04/06/2024 8:24 AM POLE PEELING MACHINE OPERATOR 04/06/2024 8:33 AM POLE PEELING MACHINE OPERATOR us Lavon Castaneda MD LAB BLOOD ORDERABLE S Final Result Performing Organization Address City/[facility]/ZIP Co de Phone Number DENNIS [address] Department [place] [address] * (ABNORMAL) Differential, auto (04/06/2024 8:24 AM POLE PEELING MACHINE OPERATOR) Neutrophil abs 3.2 1.5 - 6.5 K/cumm Comment:Testing performed by : [address] [address] Imm gran abs 0.0 0.0 - 0.1 K/cumm DENNIS Comment:Testing performed by : [address] [address] Lymphocyte abs 2.2 0.8 - 3.3 K/cumm DENNIS Comment:Testing performed by : [address] [address] Monocyte abs 0.4 0.2 - 0.8 K/cumm DENNIS Comment:Testing performed by : [address] [address] Eosinophil abs 0.6(H) 0.0 - 0.5 K/cumm DENNIS Comment:Testing performed by : [address] [address] Basophil abs 0.1 0.0 - 0.1 K/cumm [facility] Comment:Testing performed by : [address] [address] Neutrophil pct 49.0 % [facility] Comment: Interpretive Data Percent cell count reference ranges are not reported, since discordance with absolute values may lead to misinterpretation of CBC data. Current Interpretive Data was last revised on 2017. Testing performed by: [address] [address] Imm gran pct 0.5 % [facility] Comment: Interpretive Data Percent cell count reference ranges are not reported, since discordance with absolute values may lead to misinterpretation of CBC data. Current Interpretive Data was last revised on 2017. Testing performed by: [address] [address] Lymphocyte pct 34.0 % CERNER Comment: Interpretive Data Percent cell count reference ranges are not reported, since discordance with absolute values may lead to misinterpretation of CBC data. Current Interpretive Data was last revised on 2017. Testing performed by: [address] [address] Monocyte pct 6.6 % DENNIS Comment: Interpretive Data Percent cell count reference ranges are not reported, since discordance with absolute values may lead to misinterpretation of CBC data. Current Interpretive Data was last revised on 2017. Testing performed by: [address] [address] Eosinophil pct 9.0 % DENNIS Comment: Interpretive Data Percent cell count reference ranges are not reported, since discordance with absolute values may lead to misinterpretation of CBC data. Current Interpretive Data was last revised on 2017. Testing performed by: [address] [address] Basophil pct 0.9 % DENNIS Comment: Interpretive Data Percent cell count reference ranges are not reported, since discordance with absolute values may lead to misinterpretation of CBC data. Current Interpretive Data was last revised on 2017. Testing performed by: [address] [address] Blood 04/06/2024 8:24 AM POLE PEELING MACHINE OPERATOR 04/06/2024 8:33 AM POLE PEELING MACHINE OPERATOR us Lavon Castaneda MD LAB BLOOD ORDERABLE S Final Result [facility] [address] [facility] Department [place] [address] * (ABNORMAL) CBC with auto differential (04/06/2024 8:24 AM POLE PEELING MACHINE OPERATOR) WBC 6.5 3.8 - 9.9 K/cumm Comment:Testing performed by : [address] [address] Hgb 10.4(L) 11.9 - 15.5 g/dL DENNIS JOSUE Comment:Testing performed by : [address] [address] Hct 33.0(L) 35.6 - 45.5 % DENNIS JOSUE Comment:Testing performed by : [address] [address] Plt 277 150 - 400 K/cumm DENNIS JOSUE Comment:Testing performed by : [address] [address] MPV 9.6 9.1 - 12.3 fL DENNIS JOSUE Comment:Testing performed by : [address] [address] RBC 3.98 3.90 - 5.20 M/cumm DENNIS JOSUE Comment:Testing performed by : [address] [address] MCV 82.9 81.3 - 96.4 fL DENNIS JOSUE Comment:Testing performed by : [address] [address] MCH 26.1(L) 27.1 - 33.3 pg DENNIS Comment:Testing performed by : [address] [address] MCHC 31.5(L) 32.3 - 35.7 g/dL DENNIS Comment:Testing performed by : [address] [address] RDW CV 15.8(H) 11.1 - 14.9 % DENNIS Comment:Testing performed by : [address] [address] RDW SD 47.7 35.7 - 48.1 fL DENNIS Comment:Testing performed by : [address] [address] NRBC abs 0.00 0.00 - 0.01 K/cumm DENNIS Comment:Testing performed by : [address] [address] Blood 04/06/2024 8:24 AM POLE PEELING MACHINE OPERATOR 04/06/2024 8:33 AM POLE PEELING MACHINE OPERATOR us Lavon Castaneda MD LAB BLOOD ORDERABLE S Final Result DENNIS [address] [facility] Department of Laboratories [place], [place] [id number] [phone] * hCG, blood, quantitative (04/06/2024 8:24 AM POLE PEELING MACHINE OPERATOR) hCG, quant <5.0 0.0 - 5.0 IUnits/L Comment: Interpretive Data Male: < 5 IU/L Non- premenopausal Female: <5 IU/L The Rudy hCG Beta Quant assay procedure was used. Results from different manufacturers or methods may not be comparable. Serial testing should be performed using the same method. Interpretive Data was last revised on 2023 Testing performed by: [address] [address] Blood 04/06/2024 8:24 AM POLE PEELING MACHINE OPERATOR 04/06/2024 8:33 AM POLE PEELING MACHINE OPERATOR us Lavon Castaneda MD LAB BLOOD ORDERABLE S Edited Result - Final [facility] [address] [facility] Department [place] [address] * (ABNORMAL) Basic metabolic panel (04/06/2024 8:24 AM POLE PEELING MACHINE OPERATOR) Sodium 139 135 - 145 mmol/L Comment:Testing performed by : [address] [address] Potassium, pl 4.5 3.3 - 4.9 mmol/L DENNIS Comment:Testing performed by : [address] [address] Chloride 103 97 - 110 mmol/L DENNIS Comment:Testing performed by : [address] [address] CO2 21(L) 22 - 32 mmol/L DENNIS Comment:Testing performed by : [address] [address] Anion gap 15 2 - 15 mmol/L DENNIS Comment:Testing performed by : [address] [address] BUN 54(H) 6 - 25 mg/dL DENNIS JOSUE Comment:Testing performed by : [address] [address] Creatinine 13.60(H) 0.60 - 1.10 mg/dL DENNIS Comment:Testing performed by : [address] [address] Glucose 95 70 - 199 mg/dL DENNIS [...] was last revised 2022. Testing performed by: [address] [address] Calcium 9.3 8.5 - 10.3 mg/dL DENNIS Comment:Testing performed by : [address] [address] Blood 04/06/2024 8:24 AM POLE PEELING MACHINE OPERATOR 04/06/2024 8:33 AM POLE PEELING MACHINE OPERATOR us Lavon Castaneda MD LAB BLOOD ORDERABLE S Final Result [facility] [address] [facility] Department of Laboratories [place], [place] [id number] * ECG 12 lead (04/06/2024 8:18 AM POLE PEELING MACHINE OPERATOR) Pathologist [facility] Ventricular Rate EKG/Min 74 BPM [facility] Atrial Rate 74 BPM [facility] [place]-Interval (MSEC) 148 ms [facility] QRS-Interval (MSEC) 70 ms [facility] QT-Interval (MSEC) 422 ms [facility] QTc 468 ms [facility] P [place] 65 degrees [facility] R [place] 1 degrees [facility] T [place] 31 degrees [facility] Diagnosis Normal sinus rhythm Low voltage QRS Septal infarct , age undetermined Abnormal ECG When compared with ECG of 06-MAR-2023 10:29, No significant change was found Confirmed by MEREDITH CANO M.D. ([id number]) on 04/08/2024 7:23:12 PM [facility] 04/06/2024 8:18 AM POLE PEELING MACHINE OPERATOR 04/08/2024 7:23 PM POLE PEELING MACHINE OPERATOR us Lavon Castaneda MD ECG ORDERABLES Fin al Result Performing Organization Address [facility] Co de Phone Number [facility] * HLA Antibody Screen by PRA or SAB per Schedule (Class I and Class II) (03/29/2024 10:00 AM POLE PEELING MACHINE OPERATOR) Blood 03/29/2024 10:0 0 AM POLE PEELING MACHINE OPERATOR Narrative HISTOT[facility] - POLE PEELING MACHINE OPERATOR Sample received in lab. Single Antigen Antibody Screen ordered. us Bashir Alston MD LAB BLOOD ORDERABLES Final R esult Performing Organization Address [facility] de Phone Number HISTOT[facility] * HLA Antibody Screen - SAB (Class I and Class II) (03/29/2024 10:00 AM POLE PEELING MACHINE OPERATOR) Class I Treatment EDTA HISTOTRAC [...] per SSO. [facility] 03/29/2024 10:0 0 AM POLE PEELING MACHINE OPERATOR 04/04/2024 10:33 AM POLE PEELING MACHINE OPERATOR Narrative HISTOTRAC - 04/04/2024 10:33 AM POLE PEELING MACHINE OPERATOR Single-antigen HLA antibody screen is performed on serum samples using a method developed and validated by the [facility] HLA laboratory based on an FDA-approved IVD kit (LABScreen Single-Antigen, [employer], [place], [place]). All patient serum samples are pretreated with EDTA before the screen to prevent complement interference. Additional serum treatments, such as adsorption and DTT treatment, may be performed as indicated. Interpretive comments: Low risk: MFI [id number]. Moderate risk: MFI [id number]. Increased risk: MFI >/= 5000. The presence [...] antigens to avoid. Testing performed at the [facility], [facility]th [facility], [place], [address]. [place] # [id number]. Amber Berry, Ph.D., Director Of Transportation, HLA Laboratory Jonathan Brennan M.D., Ph.D., Tool Sharpener, HLA Laboratory Rehana Alarcon, Ph.D., CLIA Tool Sharpener, [facility] Clinical Laboratories Current methodology and interpretive comments last revised on 03/20/2022. us Bashir Alston MD LAB BLOOD ORDERABLES Edited Result - Final HISTOTR[facility] * STRESS ECHO PHARMACOLOGIC W DOPPLER/CF W CONTRAST (02/26/2024 10:12 AM POLE PEELING MACHINE OPERATOR) LV EF 58 % CARDIOREPORT Anatomical Region Laterality Modality Ultrasound 02/26/2024 8:00 AM POLE PEELING MACHINE OPERATOR Narrative 02/26/2024 11:07 AM POLE PEELING MACHINE OPERATOR Patient name: Bakari Smith Date of test: 02/26/2024 Hospital #: [id number] Location: [facility] Interpreted by: Kip Pena M.D. Ph.D. Newspaper Editor: Lainey Oh RDCS RN: Hilda Monk RN Reason for Test: pre-kidney transplant evaluation Study quality: Technically good Referring Physician: TONYA AHMMONDS MD Contrast Agent: 0.45 ml Definity Administered, (1.05 ml wasted). BASELINE STUDY: Wall Motion Scoring (1=Normal 2=Hypo 3=Akinetic 4=Dyskin./Aneurysm 0=Not visualized) Parasternal [place]:MAS=1 BAS=1 MIL=1 RENATO=1 Parasternal [place]:MAS=1 MIS=1 DE=1 MIL=1 MAL=1 MA=1 Apical 4 Chambers:=1 MIS=1 BIS=1 BAL=1 MAL=1 AL=1 AC=1 Apical 2 Chambers:AI=1 DE=1 BI=1 BA=1 MA=1 AA=1 AC=1 Ejection Fraction: [...] 2=Hypo 3=Akinetic 4=Dyskin./Aneurysm 0=Not visualized) Parasternal [place]:MAS=1 BAS=1 MIL=1 RENATO=1 Parasternal [place]:MAS=1 MIS=1 DE=1 MIL=1 MAL=1 MA=1 Apical 4 Chambers:=1 MIS=1 BIS=1 BAL=1 MAL=1 AL=1 AC=1 Apical 2 Chambers:AI=1 DE=1 BI=1 BA=1 MA=1 AA=1 AC=1 Intravenous dobutamine [...] Ph.D. By signing this report, the attending outside collector certifies that he or she has personally supervised and interpreted the echocardiogram and has reviewed and or edited and agrees with the written comments contained within the report. Procedure Note Kip Pena MD PhD - 02/26/2024 Patient name: Bakari Smith Date of test: 02/26/2024 Hospital #: [id number] Location: [facility] Interpreted by: Kip Pena M.D. Ph.D. Newspaper Editor: Lainey Oh RDCS RN: Hilda Monk RN Reason for Test: pre-kidney transplant evaluation Study quality: Technically good Referring Physician: TONYA HAMMONDS MD Contrast Agent: 0.45 ml Definity Administered, (1.05 ml wasted). BASELINE STUDY: Wall Motion Scoring (1=Normal 2=Hypo 3=Akinetic 4=Dyskin./Aneurysm 0=Not visualized) Parasternal [place]:MAS=1 BAS=1 MIL=1 RENATO=1 Parasternal [place]:MAS=1 MIS=1 DE=1 MIL=1 MAL=1 MA=1 Apical 4 Chambers:=1 MIS=1 BIS=1 BAL=1 MAL=1 AL=1 AC=1 Apical 2 Chambers:AI=1 DE=1 BI=1 BA=1 MA=1 AA=1 AC=1 Ejection Fraction: [...] 2=Hypo 3=Akinetic 4=Dyskin./Aneurysm 0=Not visualized) Parasternal [place]:MAS=1 BAS=1 MIL=1 RENATO=1 Parasternal [place]:MAS=1 MIS=1 DE=1 MIL=1 MAL=1 MA=1 Apical 4 Chambers:=1 MIS=1 BIS=1 BAL=1 MAL=1 AL=1 AC=1 Apical 2 Chambers:AI=1 DE=1 BI=1 BA=1 MA=1 AA=1 AC=1 Intravenous dobutamine [...] Ph.D. By signing this report, the attending outside collector certifies that he or she has personally supervised and interpreted the echocardiogram and has reviewed and or edited and agrees with the written comments contained within the report. Tonya Hammonds MD CV ECHO PROCEDURES Final Result * HLA Antibody Screen by PRA or SAB per Schedule (Class I and Class II) (02/26/2024 10:00 AM POLE PEELING MACHINE OPERATOR) Blood 02/26/2024 10:0 0 AM POLE PEELING MACHINE OPERATOR Narrative HISTOTRAC - POLE PEELING MACHINE OPERATOR Sample received in lab and stored. No testing performed at this time. us Bashir Alston MD LAB BLOOD ORDERABLES Final R esult HISTOTRAC * (ABNORMAL) eGFR (02/16/2024 11:34 AM POLE PEELING MACHINE OPERATOR) eGFR 4(L) >=60 mL/min/1. 73 [...] reviewed 2020. Blood 02/16/2024 11:3 4 AM POLE PEELING MACHINE OPERATOR 02/16/2024 12:02 PM POLE PEELING MACHINE OPERATOR us Toyna Hammonds MD LAB BLOOD ORDERABLE S Final Result [facility] [place] [address] * Differential, auto (02/16/2024 11:34 AM POLE PEELING MACHINE OPERATOR) Neutrophil abs 5.1 1.5 - 6.5 K/cumm Imm gran abs 0.1 0.0 - 0.1 K/cumm [facility] Lymphocyte abs 2.0 0.8 - 3.3 K/cumm [facility] Monocyte abs 0.6 0.2 - 0.8 K/cumm [facility] Eosinophil abs 0.1 0.0 - 0.5 K/cumm [facility] Basophil abs 0.0 0.0 - 0.1 K/cumm [facility] Neutrophil pct 64.7 % [facility] Comment: Interpretive Data Percent cell count reference ranges are not reported, since discordance with absolute values may lead to misinterpretation of CBC data. Current Interpretive Data was last revised on 2017. Imm gran pct 0.6 % [facility] Comment: Interpretive Data Percent cell count reference ranges are not reported, since discordance with absolute values may lead to misinterpretation of CBC data. Current Interpretive Data was last revised on 2017. Lymphocyte pct 25.3 % [facility] Comment: Interpretive Data Percent cell count reference ranges are not reported, since discordance with absolute values may lead to misinterpretation of CBC data. Current Interpretive Data was last revised on 2017. Monocyte pct 7.3 % [facility] Comment: Interpretive Data Percent cell count reference ranges are not reported, since discordance with absolute values may lead to misinterpretation of CBC data. Current Interpretive Data was last revised on 2017. Eosinophil pct 1.8 % [facility] Comment: Interpretive Data Percent cell count reference ranges are not reported, since discordance with absolute values may lead to misinterpretation of CBC data. Current Interpretive Data was last revised on 2017. Basophil pct 0.3 % [facility] Comment: Interpretive Data Percent cell count reference ranges are not reported, since discordance with absolute values may lead to misinterpretation of CBC data. Current Interpretive Data was last revised on 2017. Blood 02/16/2024 11:3 4 AM POLE PEELING MACHINE OPERATOR 02/16/2024 11:45 AM POLE PEELING MACHINE OPERATOR us Tonya Hammonds MD LAB BLOOD ORDERABLE S Final Result [facility] Department [place] [address] * HIV 1/2 Antibody plus p24 Antigen Blood (02/16/2024 11:34 AM POLE PEELING MACHINE OPERATOR) [facility] HIV 1/2 ab + p24 ag Nonreactive Nonreactive Comment:Nonreactive for HIV- 1 antigen and HIV-1/HIV-2 antibodies. No laboratory evidence of HIV infection. If acute HIV infection is suspected, consider testing for HIV-1 RNA. Current interpretive data was last revised on 21. Blood 02/16/2024 11:3 4 AM POLE PEELING MACHINE OPERATOR 02/16/2024 11:45 AM POLE PEELING MACHINE OPERATOR us Tonya Hammonds MD LAB MICROBIOLOGY - GENERAL ORDERABLES Final Result [facility] Department [place] [address] * (ABNORMAL) CBC with auto differential (02/16/2024 11:34 AM POLE PEELING MACHINE OPERATOR) [facility] WBC 7.8 3.8 - 9.9 K/cumm Hgb 8.6(L) 11.9 - 15.5 g/dL [facility] Hct 28.3(L) 35.6 - 45.5 % [facility] Plt 265 150 - 400 K/cumm [facility] MPV 10.2 9.1 - 12.3 fL [facility] RBC 3.24(L) 3.90 - 5.20 M/cumm [facility] MCV 87.3 81.3 - 96.4 fL [facility] MCH 26.5(L) 27.1 - 33.3 pg [facility] MCHC 30.4(L) 32.3 - 35.7 g/dL [facility] RDW CV 14.9 11.1 - 14.9 % [facility] RDW SD 48.1 35.7 - 48.1 fL [facility] NRBC abs 0.00 0.00 - 0.01 K/cumm [facility] Blood 02/16/2024 11:3 4 AM POLE PEELING MACHINE OPERATOR 02/16/2024 11:45 AM POLE PEELING MACHINE OPERATOR Tonya Hammonds MD LAB BLOOD ORDERABLE S Final Result Performing Organization Address City/[facility] Co de Phone Number [facility] [place] [address] * Hepatitis C antibody Blood (02/16/2024 11:34 AM POLE PEELING MACHINE OPERATOR) Pathologist [facility] Hep C Ab Nonreactive Nonreactive Comment:Antibodies to HCV no t detected. Does NOT exclude the possibility of recent exposure to HCV. Current interpretive data was last revised on 21 Blood 02/16/2024 11:3 4 AM POLE PEELING MACHINE OPERATOR 02/16/2024 11:45 AM POLE PEELING MACHINE OPERATOR Tonya Hammonds MD LAB MICROBIOLOGY - GENERAL ORDERABLES Final Result Performing Organization Address [facility] Co de Phone Number [facility] [place] [address] * Hepatitis B core antibody, total Blood (02/16/2024 11:34 AM POLE PEELING MACHINE OPERATOR) Pathologist [facility] Hep B core IgG/IgM Nonreactive Nonreactive Blood 02/16/2024 11:3 4 AM POLE PEELING MACHINE OPERATOR 02/16/2024 11:45 AM POLE PEELING MACHINE OPERATOR Tonya Hammonds MD LAB MICROBIOLOGY - GENERAL ORDERABLES Final Result Performing Organization Address [facility] Co de Phone Number [facility] [place] [address] * Hepatitis B surface antibody (immune status) Blood (02/16/2024 11:34 AM POLE PEELING MACHINE OPERATOR) Pathologist [facility] HBsAb (immune status) Reactive Comment:This result is consi stent with immunity to Hepatitis B Virus when used in the setting of routine screening. Current interpretive data was last revised on 21 HBsAb (immune status) index 221.0 mIUnits/m L [facility] Blood 02/16/2024 11:3 4 AM POLE PEELING MACHINE OPERATOR 02/16/2024 11:45 AM POLE PEELING MACHINE OPERATOR Tonya Hammonds MD LAB MICROBIOLOGY - GENERAL ORDERABLES Final Result Performing Organization Address [facility] de Phone Number [facility] [place] [address] * Hepatitis B Surface Antigen Blood (02/16/2024 11:34 AM POLE PEELING MACHINE OPERATOR) HepBsAg Nonreactive Nonreactive Blood 02/16/2024 11:3 4 AM POLE PEELING MACHINE OPERATOR 02/16/2024 11:45 AM POLE PEELING MACHINE OPERATOR Tonya Hammonds MD LAB MICROBIOLOGY - GENERAL ORDERABLES Final Result Performing Organization Address [facility] de Phone Number [facility] [place] [address] * (ABNORMAL) Phosphorus (02/16/2024 11:34 AM POLE PEELING MACHINE OPERATOR) Pathologist [facility] Phosphorus, pl 5.6(H) 2.3 - 4.5 mg/dL Blood 02/16/2024 11:3 4 AM POLE PEELING MACHINE OPERATOR 02/16/2024 11:45 AM POLE PEELING MACHINE OPERATOR Tonya Hammonds MD LAB BLOOD ORDERABLE S Final Result Performing Organization Address [facility] [place] [address] * (ABNORMAL) PTH (02/16/2024 11:34 AM POLE PEELING MACHINE OPERATOR) PTH 335(H) 15 - 65 pg/mL Blood 02/16/2024 11:3 4 AM POLE PEELING MACHINE OPERATOR 02/16/2024 11:45 AM POLE PEELING MACHINE OPERATOR Tonya Hammonds MD LAB BLOOD ORDERABLE S Final Result Performing Organization Address City/[facility]/ZIP Co de Phone Number [facility] [place] [address] * (ABNORMAL) Hemoglobin A1c (02/16/2024 11:34 AM POLE PEELING MACHINE OPERATOR) Hgb A1C 6.2(H) 4.0 - 5.6 % Estimated Average Glucose 131 mg/dL [facility] Comment: The ADA recommends reporting an estimated Average Glucose (eAG) with all Hemoglobin A1c results using the equation derived from a study of 507 normal and diabetic adults. Minority populations were underrepresented and children were not included. (Diabetes Care 2020; 43(S1): S66-S76). The eAG is not equivalent to a fasting glucose. Blood 02/16/2024 11:3 4 AM POLE PEELING MACHINE OPERATOR 02/16/2024 11:45 AM POLE PEELING MACHINE OPERATOR Tonya Hammonds MD LAB BLOOD ORDERABLE S Final Result Performing Organization Address City/[facility] Co de Phone Number [facility] [place] [address] * (ABNORMAL) Comprehensive metabolic panel (02/16/2024 11:34 AM POLE PEELING MACHINE OPERATOR) Sodium 140 135 - 145 mmol/L Potassium, pl 4.4 3.3 - 4.9 mmol/L [facility] Chloride 102 97 - 110 mmol/L [facility] CO2 28 22 - 32 mmol/L [facility] Anion gap 10 2 - 15 mmol/L [facility] BUN 46(H) 6 - 25 mg/dL [facility] Creatinine 10.77(H) 0.60 - 1.10 mg/dL [facility] Glucose 223(H) 70 - 199 mg/dL [facility] Comment: Interpretive Data Fasting glucose >/= 126 [...] Calcium 8.8 8.5 - 10.3 mg/dL [facility] Bilirubin, total 0.2 0.1 - 1.2 mg/dL [facility] Protein, pl 6.8 6.5 - 8.5 g/dL [facility] Albumin 3.1(L) 3.5 - 5.0 g/dL [facility] Alk phos 233(H) 40 - 130 Units/L [facility] ALT 57(H) 7 - 45 Units/L [facility] AST 50(H) 10 - 45 Units/L [facility] Blood 02/16/2024 11:3 4 AM POLE PEELING MACHINE OPERATOR 02/16/2024 11:45 AM POLE PEELING MACHINE OPERATOR us Tonya Hammonds MD LAB BLOOD ORDERABLE S Final Result [facility] Department [place] [address] * Colonoscopy (07/21/2023 10:23 AM CDT) Anatomical Region Laterality Modality Other Narrative Procedure Note Early, Haritha Coronado MD - 07/21/2023 10:23 AM CDT [facility] Patient Name: Bakari Smith Procedure Date: 07/21/2023 10:23 AM Date of : 1980 Admit Type: Outpatient Age: 43 Gender: Female Attending MD: Haritha Stover M.D. Room: [facility] ENDOSCOPY ROOM 02 Note Status: Finalized [...] The scope was passed under direct vision.The [id number] Colonoscope was introducedthrough the anus and advanced to the the cecum, identifiedby appendiceal orifice and ileocecal valve. The colonoscopy was performed without difficulty. The patient tolerated the procedure well. The qualityof the bowel preparation was evaluated using the BBPS ([place] Bowel Preparation Scale) with scores of:Right Colon [...] On: 07/21/2023 10:23 AM Recognized by the [place] [employer] for promoting quality in endoscopy us Haritha Stover MD ENDOSCOPY PROCEDURES Final Res ult * HM MAMMOGRAPHY (06/04/2021) Impressions Rashida Schneider - 06/04/2021 IMPRESSION: 1. Benign mammogram. READ BY: NINO BAJWA MD 06/05/2021 Historical Provider HEALTH MAINTENANCE Final Result * Lipid panel (04/30/2021 12:22 PM POLE PEELING MACHINE OPERATOR) Cholesterol 139 30 - 199 mg/dL [facility] Comment: Interpretive Data Ages < or [...] revised on 2017. Triglycerides 64 <=149 mg/dL [facility] Comment: Interpretive Data Ages < or = [...] revised on 2017. HDL 70 >=40 mg/dL [facility] Comment: Interpretive Data Ages < or = [...] on 2017. LDL, calculated 56 <=129 mg/dL [facility] Comment: Interpretive Data Ages < or = [...] revised on 2017. Non-HDL Cholesterol 69 mg/dL [facility] Comment: Interpretive Data Ages < or = [...] [facility] Blood 04/30/2021 12:2 2 PM POLE PEELING MACHINE OPERATOR 04/30/2021 1:03 PM POLE PEELING MACHINE OPERATOR us Ren Pelayo MD LAB BLOOD ORDERABLES Final Result [facility] Department [place] [address] from Last 3 Months or Most Recently Relevant to Health Maintenance Insurance [employer] [facility] MEDICARE MEDICARE Member Subscriber Plan / Payer (Ef fective 2021-Present) Name:Bakari Smith Member ID:[id number] Relation to Subscriber:Self Name:Bakari Smith Subscriber ID:[id number] Payer ID:[id number] Group ID:Not on file Type:MEDICARE TRADITIONAL Address: [place] [id number] MEDICARE [facility] MEDICARE SUPPLEMENT MEDICARE [facility] MEDICARE SUPPLEMENT Advance Directives For more information, please contact: [phone] * Full Code (Latest Code Status on File) Date Activated Date Inactivated Comments 07/21/2023 9:59 AM 07/21/2023 3:56 PM Care Teams Lead Systems Engineer Relationship Specialty Start Date End Date No, Physician PCP - General 02/16/24 Almita Rizzo, RN [id number] [facility] [address] [place] [address] Visual Merchandising Specialist 04/04/21 Beth Fernandez MD [address] [facility] [address] [place] [address] Referring Physician Nephrology 04/04/21 Maday Oviedo MD [address] [place] [address] Neurology 09/12/22 Tomasz Scott DO [address] [place] [address] Die Cast Technician Cardiology 09/16/22 Meir Nazario MD [address] [place] [address] Obstetrics and Gynecology 04/11/24
--- NOTE | 2024-05-05 15:24 | ED_ITS ---
HPI - Back Pain/Injury General Chief Complaint: Back Pain/Injury Stated Complaint: Fall --Right flank pain- Focused HPI: 44-year-old female with history of ESRD on hemodialysis presents to the emergency department for diffuse back pain after mechanical fall that occurred earlier today. Patient states she was carrying a box of her dialysis supplies outside her house when she saw a dog aggressively running toward her, turned around quickly to run up the stairs and fell. States she landed on her left side but is having pain in the right side of her back. She did not hit her head or lose consciousness. She denies other injuries acquired. She is reporting he had a right posterior ribs, right flank and middle of back. She does make urine and has not had any changes in bowel or bladder including incontinence or urinary retention, denies saddle anesthesia. GENERAL: Well-appearing, well-nourished. Patient writhing in pain HEAD: Normocephalic, atraumatic. CHEST: Clear to auscultation. ?No respiratory distress. BACK: Diffuse thoracic and lumbar spinous tenderness without crepitus, step- offs or deformities, tenderness along the right paraspinous muscles and right posterior ribs with no overlying skin changes. Sensation intact throughout bilateral lower extremities, no saddle anesthesia abd: Peritoneal dialysis port in the right lower quadrant with no tenderness, drainage or surrounding erythema or induration HEART: Regular rate and rhythm.? NEURO: ?Alert and oriented x3. Patient screened in triage and initial orders placed.? ?Additional care and disposition to be based upon?diagnostic testing and treatment. Related Data Home Medications ?Medication ?Instructions ?Recorded ?Confirmed ?Last Taken ?Type amlodipine 5 mg tablet 5 mg PO DAILY 12/30/23 04/08/24 03/31/24 History atorvastatin 20 mg tablet 20 mg PO DAILY 12/30/23 04/08/24 03/31/24 History sevelamer carbonate 800 mg tablet 1,600 mg PO TIDWM 01/06/24 04/08/24 03/31/24 History cholecalciferol (vitamin D3) 125 5,000 unit PO DAILY 03/07/24 04/08/24 03/28/24 History mcg (5,000 unit) tablet (Vitamin D3) hydralazine 100 mg tablet 100 mg PO Q12H 03/07/24 04/08/24 03/31/24 History labetalol 200 mg tablet 200 mg PO Q12H 03/22/24 04/08/24 04/01/24 04:00 History Allergies Allergy/AdvReac Type Severity Reaction Status Date / Time metronidazole Allergy Intermediate Rash Verified 05/05/24 13:25 omeprazole Allergy Intermediate Rash Verified 05/05/24 13:25 [facility] Past Medical History Medical History Peritoneal dialysis catheter in place Requires peritoneal dialysis ESRD (end stage renal disease) Obesity (BMI 30-39.9) Dysphagia, oropharyngeal Morbid obesity Chronic kidney disease, stage 5 Pyuria Erythropoietin deficiency anemia Gastroesophageal reflux Arthritis Right wrist left knee Irritable bowel syndrome Diverticulitis Pneumonia Peripheral neuropathy Diabetes Hypertension Surgical History Surgical History Hx of dilation and curettage Hx of cholecystectomy History of salpingo-oophorectomy Delivery by section X3 History of tubal ligation Hx of appendectomy Family History Family History Mother Diabetes mellitus Breast cancer Sibling History of blood clots due to blood clot Heart disease Sister has something wrong with her heart Father Hypertension Prostate carcinoma Daughter , 06/08/2021, 19yo Pulmonary embolism Social History Social History Social History: She has 3 children, 1 . She is single. Her oldest daughter is a durable power supervisor vine fruit farming for healthcare. The patient desires to be a full code. Patient stated that she has 5 grandchildren and watches her granddaughter most of the time. Code status full code Smoking status: Never smoker Second hand tobacco smoke exposure: Yes Alcohol intake: never Substance use: never Substance use type: does not use Do You Feel Safe in your Home?: Yes Lack of Transportation: No Lack of Food: Never True Current Housing: I Have Housing Concerned About Future Housing: No Difficulty Paying Gas/Electric Bills: No Difficulty Paying for Meds: No Currently Unemployed: No Education: High School Diploma/GED Difficulty w/ Childcare or Family Care: No Living arrangements: with family Additional living arrangements comments: with son Occupation/Education: other Additional occupation/education comments: disabled, 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 [employer] Gender identity (if verbalized by the patient): Female Sexual Orientation (if Verbalized by the Patient): Straight or Heterosexual Spiritual care concerns: No Agree to blood products: Yes Course Vital Signs Vital signs: Vital Signs Temperature 97.6 F 05/05/24 13:22 Pulse Rate 81 05/05/24 13:22 Respiratory Rate 16 05/05/24 13:22 Blood Pressure 151/68 H 05/05/24 13:22 Pulse Oximetry 100 05/05/24 13:22 Temperature 97.6 F 05/05/24 13:22 Pulse Rate 81 05/05/24 13:22 Respiratory Rate 16 05/05/24 13:22 Blood Pressure 151/68 H 05/05/24 13:22 Pulse Oximetry 100 05/05/24 13:22 Discharge Plan Discharge Patient Language: Amharic Prescriptions: No Action amlodipine 5 mg tablet 5 mg PO DAILY atorvastatin 20 mg tablet 20 mg PO DAILY gabapentin 100 mg capsule 200 mg PO TID Qty: 540 1RF (DME) blood-glucose meter [Blood Glucose Monitoring] Kit See Rx Instructions .ROUTE .MEDSUPPLY Qty: 1 0RF Rx Instructions: once (DME) Blood Glucose Test Strip See Rx Instructions .ROUTE .MEDSUPPLY Qty: 100 1RF Rx Instructions: bid (DME) lancets 31 gauge misc See Rx Instructions .ROUTE .MEDSUPPLY Qty: 100 1RF Rx Instructions: bid metronidazole 500 mg tablet 2,000 mg PO ONCE Qty: 4 0RF aspirin [Children's Aspirin] 81 mg Tablet,Chewable 81 mg PO DAILY@0800 Qty: 30 0RF labetalol 200 mg tablet 200 mg PO Q12H sevelamer carbonate 800 mg tablet 1,600 mg PO TIDWM Patient Comments: Before she eats. hydralazine 100 mg tablet 100 mg PO Q12H Patient Comments: pt stated and verified with picture of medication bottle cholecalciferol (vitamin D3) [Vitamin D3] 125 mcg (5,000 unit) tablet 5,000 unit PO DAILY (DME) FreeStyle Alexandro 3 Plus Sensor Device See Rx Instructions .Route Qty: 2 3RF Rx Instructions: Check glucose continuous As directed insulin glargine [Lantus Solostar U-100 Insulin] 100 unit/mL (3 mL) insulin pen 14 unit subcut HS Qty: 15 3RF Follow-up/Referrals: Sulema Lennon, TAMMY [Primary Care Provider] -
--- NOTE | 2024-05-05 16:30 | ED_ITS ---
HPI - Back Pain/Injury General Chief Complaint: Back Pain/Injury <Rocky Adam MD - Last Filed: 05/05/24 18:54> Stated Complaint: Fall --Right flank pain- <Rocky Adam MD - Last Filed: 05/05/24 18:54> Time Seen by Provider: 05/05/24 16:26 <Rocky Adam MD - Last Filed: 05/05/24 18:54> Source: patient <Rocky Adam MD - Last Filed: 05/05/24 18:54> Mode of arrival: ambulatory <Rocky Adam MD - Last Filed: 05/05/24 18:54> Limitations: no limitations <Rocky Adam MD - Last Filed: 05/05/24 18:54> History of Present Illness HPI Narrative: PATIENT LOST HER BALANCE AND FELL OWN 1 OF THE STEPS, LANDED ON THE AGE OF 1 OF THE STEPS AGAINST HER RIGHT FLANK AREA. DENIES OTHER INJURIES. HISTORY OF PRESENT NOW DIALYSIS <Rocky Adam MD - Last Filed: 05/05/24 18:54> Related Data Home Medications: Home Medications ?Medication ?Instructions ?Recorded ?Confirmed ?Last Taken ?Type amlodipine 5 mg tablet 5 mg PO DAILY 12/30/23 04/08/24 03/31/24 History atorvastatin 20 mg tablet 20 mg PO DAILY 12/30/23 04/08/24 03/31/24 History sevelamer carbonate 800 mg tablet 1,600 mg PO TIDWM 01/06/24 04/08/24 03/31/24 History cholecalciferol (vitamin D3) 125 5,000 unit PO DAILY 03/07/24 04/08/24 03/28/24 History mcg (5,000 unit) tablet (Vitamin D3) hydralazine 100 mg tablet 100 mg PO Q12H 03/07/24 04/08/24 03/31/24 History labetalol 200 mg tablet 200 mg PO Q12H 03/22/24 04/08/24 04/01/24 04:00 History <Rocky Adam MD - Last Filed: 05/05/24 18:54> Allergies/Adverse Reactions: Allergies Allergy/AdvReac Type Severity Reaction Status Date / Time metronidazole Allergy Intermediate Rash Verified 05/05/24 13:25 omeprazole Allergy Intermediate Rash Verified 05/05/24 13:25 <Rocky Adam MD - Last Filed: 05/05/24 18:54> Review of Systems 2 Review of Systems: All systems reviewed & are unremarkable except as noted in HPI and below <Rocky Adam MD - Last Filed: 05/05/24 18:54> PMFSH Past Medical History Medical History: Medical History Peritoneal dialysis catheter in place Requires peritoneal dialysis ESRD (end stage renal disease) Obesity (BMI 30-39.9) Dysphagia, oropharyngeal Morbid obesity Chronic kidney disease, stage 5 Pyuria Erythropoietin deficiency anemia Gastroesophageal reflux Arthritis Right wrist left knee Irritable bowel syndrome Diverticulitis Pneumonia Peripheral neuropathy Diabetes Hypertension <Rocky Adam MD - Last Filed: 05/05/24 18:54> Surgical History Surgical History: Surgical History Hx of dilation and curettage Hx of cholecystectomy History of salpingo-oophorectomy Delivery by section X3 History of tubal ligation Hx of appendectomy <Rocky Adam MD - Last Filed: 05/05/24 18:54> Family History Family History: Family History Mother Diabetes mellitus Breast cancer Sibling History of blood clots due to blood clot Heart disease Sister has something wrong with her heart Father Hypertension Prostate carcinoma Daughter , 06/08/2021, 19yo Pulmonary embolism <Rocky Adam MD - Last Filed: 05/05/24 18:54> Social History Social History: Social History Social History: She has 3 children, 1 . She is single. Her oldest daughter is a durable power automotive tire tester for healthcare. The patient desires to be a full code. Patient stated that she has 5 grandchildren and watches her granddaughter most of the time. Code status full code Smoking status: Never smoker Second hand tobacco smoke exposure: Yes Alcohol intake: never Substance use: never Substance use type: does not use Do You Feel Safe in your Home?: Yes Lack of Transportation: No Lack of Food: Never True Current Housing: I Have Housing Concerned About Future Housing: No Difficulty Paying Gas/Electric Bills: No Difficulty Paying for Meds: No Currently Unemployed: No Education: High School Diploma/GED Difficulty w/ Childcare or Family Care: No Living arrangements: with family Additional living arrangements comments: with son Occupation/Education: other Additional occupation/education comments: disabled, 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 Gender identity (if verbalized by the patient): Female Sexual Orientation (if Verbalized by the Patient): Straight or Heterosexual Spiritual care concerns: No Agree to blood products: Yes <Rocky Adam MD - Last Filed: 05/05/24 18:54> Exam 2 Narrative: GENERAL APPEARANCE: WELL-DEVELOPED, WELL-NOURISHED SKIN: NORMAL COLOR HEAD: NORMOCEPHALIC, NONTRAUMATIC EYES: CLEAR CONJUNCTIVA ENT: OROPHARYNX NORMAL, EARS NORMAL, NOSE NORMAL NECK: SUPPLE, NONTENDER CHEST AND RESPIRATORY: AIRWAY PATENT, NO RESPIRATORY DISTRESS, NO ACCESSORY MUSCLE USE HEART: REGULAR RATE/RHYTHM ABDOMEN: SEVERE TENDERNESS RIGHT FLANK AREA, NO BRUISES, NO SWELLING, NO RASH, PERSONAL DIALYSIS TUBES IN PLACE VASCULAR: NORMAL PERIPHERAL PULSES, NORMAL CAPILLARY REFILL. MUSCULOSKELETAL: NORMAL RANGE OF MOTION, NONTENDER BACK NEUROLOGIC: ALERT AND ORIENTED ?3, CARBIDE GRINDER IS NORMAL TESTED, NO GROSS MOTOR DEFICIT <Rocky Adam MD - Last Filed: 05/05/24 18:54> Course Course Emergency Course: ZYCH: Patient signed out pending CT abdomen pelvis. No acute traumatic injury on the CT abdomen pelvis. Patient's pain was treated. Patient be discharged with p.o. pain medication. Instructed follow-up with her primary care physician. <Denys Adame MD - Last Filed: 05/05/24 23:51> Vital Signs Vital signs: Vital Signs Temperature 97.6 F 05/05/24 13:22 Pulse Rate 81 05/05/24 13:22 Respiratory Rate 16 05/05/24 13:22 Blood Pressure 151/68 H 05/05/24 13:22 Pulse Oximetry 100 05/05/24 13:22 Temperature 97.6 F 05/05/24 13:22 Pulse Rate 83 05/05/24 23:36 Respiratory Rate 19 05/05/24 23:36 Blood Pressure 131/79 05/05/24 23:36 Pulse Oximetry 99 05/05/24 23:36 <Rocky Adam MD - Last Filed: 05/05/24 18:54> Vital Signs Temperature 97.6 F 05/05/24 13:22 Pulse Rate 81 05/05/24 13:22 Respiratory Rate 16 05/05/24 13:22 Blood Pressure 151/68 H 05/05/24 13:22 Pulse Oximetry 100 05/05/24 13:22 Temperature 97.6 F 05/05/24 13:22 Pulse Rate 83 05/05/24 23:36 Respiratory Rate 19 05/05/24 23:36 Blood Pressure 131/79 05/05/24 23:36 Pulse Oximetry 99 05/05/24 23:36 <Denys Adame MD - Last Filed: 05/05/24 23:51> MDM - Back Pain/Injury MDM Narrative Medical decision making narrative: PATIENT HAD A FALL AGAINST THE EDGE OF 1 OF THE STAIRS STEP, RIGHT FLANK PAIN, NO OTHER INJURIES VITAL SIGNS ARE STABLE PHYSICAL EXAMINATION SHOWING EXCRUCIATING TENDERNESS AT THE RIGHT FLANK AREA. PATIENT UNABLE TO STAND UP OR MOVE BECAUSE OF THE SEVERITY OF PAIN DIFFERENTIAL DIAGNOSIS MUSCULAR PAIN, KIDNEY INJURY, RIGHT LOWER RIB FRACTURE BLOOD WORKUP TODAY INCLUDES CBC, CMP, SHOWED BN 54, CREATININE 13.1 CONSISTENT WITH HER BASELINE LEVEL, AST 52 ALT 55, ALKALINE PHOSPHATASE [address] ABDOMEN AND PELVIS WITH IV CONTRAST SHOWED PATIENT WAS SIGNED OUT TO DR. ADAME AT [facility] WAITING FOR UA AND CT SCAN RESULT <Rocky Adam MD - Last Filed: 05/05/24 18:54> Differential Diagnosis Differential diagnosis: Likely other ( ABOVE) <Rocky Adam MD - Last Filed: 05/05/24 18:54> Medical Records Attestation: I reviewed the patient's medical records. <Rocky Adam MD - Last Filed: 05/05/24 18:54> Lab Data Attestation: I reviewed the patient's lab results. <Rocky Adam MD - Last Filed: 05/05/24 18:54> Result diagrams: 05/05/24 18:08 05/05/24 18:08 <Rocky Adam MD - Last Filed: 05/05/24 18:54> Labs: Lab Results 05/05/24 05/05/24 Range/Units 18:08 20:59 WBC 7.8 (4.5-10.0) K/mm3 RBC 4.06 L (4.2-5.4) M/mm3 Hgb 10.6 L (12.0-15.0) g/dL Hct 34.4 L (37.0-47.0) % MCV 84.7 (80-100) fl MCH 26.1 (26-34) pg MCHC 30.8 L (32-36) g/dl RDW 16.7 H (11.5-14.5) % Plt Count 280 (150-375) k/mm3 MPV 9.7 (7.4-10.4) fl Immature Gran % (Auto) 0.3 (0-0.5) % Neut % (Auto) 50.5 (45.5-73.1) % Lymph % (Auto) 35.9 (18.3-44.2) % [place] % (Auto) 8.1 (2.6-8.5) % Eos % (Auto) 4.2 (0-4.4) % Baso % (Auto) 1.0 (0.2-1.2) % Lymph # (Auto) 2.79 (0.9-3.2) K/mm3 [place] # (Auto) 0.6 (0.1-0.6) K/mm3 Eos # (Auto) 0.3 (0-0.3) K/mm3 Baso # (Auto) 0.1 (0.0-0.1) K/mm3 Abs Immat Gran (auto) 0.02 (0.00-0.031) K/mm3 Absolute Neuts (auto) 3.9 (1.3-6.7) K/mm3 Absolute Nucleated RBC 0.000 (0.0-0.012) K/mm3 Nucleated RBC % 0.0 (0.0-0.2) % Sodium 137 (137-145) mmol/L Potassium 3.6 (3.4-5.0) mmol/L Chloride 101 (98-107) mmol/L Carbon Dioxide 24 (22-30) mmol/L Anion Gap 12 (4-12) mmol/L BUN 54 H (7-17) mg/dL Creatinine 13.14 H (0.7-1.0) mg/dL Estim Creat Clear Calc Not Reportable Estimated GFR 3 L (59 - ) Glucose 124 H (65-110) mg/dL Calcium 9.0 (8.4-10.2) mg/dL Total Bilirubin 0.3 (0.2-1.3) mg/dL AST 52 H (14-36) U/L ALT 55 H (6-35) U/L Alkaline Phosphatase 309 H (38-126) U/L Total Protein 7.0 (6.3-8.2) g/dL Albumin 3.5 (3.5-5.1) g/dL Urine Color Yellow (Yellow) Urine Appearance Clear (Clear) Urine pH 7.5 (5.0-9.0) Ur Specific [place] 1.010 (1.001-1.035) Urine Protein 3+ H (Negative) mg/dL Urine Glucose (UA) 2+ H (Negative) mg/dL Urine Ketones Negative (Negative) mg/dL Ur Blood (Man) Trace (Negative) Urine Nitrate Negative (Negative) Urine Bilirubin Negative (Negative) Urine Urobilinogen 0.2 (<2.0) mg/dL Leukocyte Esterase Rfl Negative (Negative) GISELA/UL Urine RBC 0-2 (0-2) /hpf Urine WBC 0-5 (0-3) /hpf Ur Squamous Epith Cells Occasional (Few) /hpf Urine Bacteria None seen /hpf Urine Casts 0-2 <Rocky Adam MD - Last Filed: 05/05/24 18:54> Lab Results 05/05/24 05/05/24 Range/Units 18:08 20:59 WBC 7.8 (4.5-10.0) K/mm3 RBC 4.06 L (4.2-5.4) M/mm3 Hgb 10.6 L (12.0-15.0) g/dL Hct 34.4 L (37.0-47.0) % MCV 84.7 (80-100) fl MCH 26.1 (26-34) pg MCHC 30.8 L (32-36) g/dl RDW 16.7 H (11.5-14.5) % Plt Count 280 (150-375) k/mm3 MPV 9.7 (7.4-10.4) fl Immature Gran % (Auto) 0.3 (0-0.5) % Neut % (Auto) 50.5 (45.5-73.1) % Lymph % (Auto) 35.9 (18.3-44.2) % [place] % (Auto) 8.1 (2.6-8.5) % Eos % (Auto) 4.2 (0-4.4) % Baso % (Auto) 1.0 (0.2-1.2) % Lymph # (Auto) 2.79 (0.9-3.2) K/mm3 [place] # (Auto) 0.6 (0.1-0.6) K/mm3 Eos # (Auto) 0.3 (0-0.3) K/mm3 Baso # (Auto) 0.1 (0.0-0.1) K/mm3 Abs Immat Gran (auto) 0.02 (0.00-0.031) K/mm3 Absolute Neuts (auto) 3.9 (1.3-6.7) K/mm3 Absolute Nucleated RBC 0.000 (0.0-0.012) K/mm3 Nucleated RBC % 0.0 (0.0-0.2) % Sodium 137 (137-145) mmol/L Potassium 3.6 (3.4-5.0) mmol/L Chloride 101 (98-107) mmol/L Carbon Dioxide 24 (22-30) mmol/L Anion Gap 12 (4-12) mmol/L BUN 54 H (7-17) mg/dL Creatinine 13.14 H (0.7-1.0) mg/dL Estim Creat Clear Calc Not Reportable Estimated GFR 3 L (59 - ) Glucose 124 H (65-110) mg/dL Calcium 9.0 (8.4-10.2) mg/dL Total Bilirubin 0.3 (0.2-1.3) mg/dL AST 52 H (14-36) U/L ALT 55 H (6-35) U/L Alkaline Phosphatase 309 H (38-126) U/L Total Protein 7.0 (6.3-8.2) g/dL Albumin 3.5 (3.5-5.1) g/dL Urine Color Yellow (Yellow) Urine Appearance Clear (Clear) Urine pH 7.5 (5.0-9.0) Ur Specific [place] 1.010 (1.001-1.035) Urine Protein 3+ H (Negative) mg/dL Urine Glucose (UA) 2+ H (Negative) mg/dL Urine Ketones Negative (Negative) mg/dL Ur Blood (Man) Trace (Negative) Urine Nitrate Negative (Negative) Urine Bilirubin Negative (Negative) Urine Urobilinogen 0.2 (<2.0) mg/dL Leukocyte Esterase Rfl Negative (Negative) GISELA/UL Urine RBC 0-2 (0-2) /hpf Urine WBC 0-5 (0-3) /hpf Ur Squamous Epith Cells Occasional (Few) /hpf Urine Bacteria None seen /hpf Urine Casts 0-2 <Denys Aadme MD - Last Filed: 05/05/24 23:51> Discharge Plan Discharge Clinical Impression: Fall <Rocky Adam MD - Last Filed: 05/05/24 18:54> Patient Disposition: Home, Self-Care <Rocky Adam MD - Last Filed: 05/05/24 18:54> Condition: Stable <Rocky Adam MD - Last Filed: 05/05/24 18:54> Instructions: Antibiotic Form, Back Pain (ED) <Rocky Adam MD - Last Filed: 05/05/24 18:54> Additional Instructions: You were seen after a fall. Use Tylenol and Robaxin for pain. Please follow-up with your primary care physician for further management. You develop any new or worsening symptoms and ligated return to the ED for re-evaluation. <Rocky Adam MD - Last Filed: 05/05/24 18:54> Patient Language: Namibian <Rcoky Adam MD - Last Filed: 05/05/24 18:54> Prescriptions: New acetaminophen 500 mg tablet 1,000 mg PO TID PRN (Reason: tessie) 7 Days Qty: 42 0RF methocarbamol 750 mg tablet 1,500 mg PO TID Qty: 35 0RF No Action amlodipine 5 mg tablet 5 mg PO DAILY atorvastatin 20 mg tablet 20 mg PO DAILY gabapentin 100 mg capsule 200 mg PO TID Qty: 540 1RF (DME) blood-glucose meter [Blood Glucose Monitoring] Kit See Rx Instructions .ROUTE .MEDSUPPLY Qty: 1 0RF Rx Instructions: once (DME) Blood Glucose Test Strip See Rx Instructions .ROUTE .MEDSUPPLY Qty: 100 1RF Rx Instructions: bid (DME) lancets 31 gauge misc See Rx Instructions .ROUTE .MEDSUPPLY Qty: 100 1RF Rx Instructions: bid metronidazole 500 mg tablet 2,000 mg PO ONCE Qty: 4 0RF aspirin [Children's Aspirin] 81 mg Tablet,Chewable 81 mg PO DAILY@0800 Qty: 30 0RF labetalol 200 mg tablet 200 mg PO Q12H sevelamer carbonate 800 mg tablet 1,600 mg PO TIDWM Patient Comments: Before she eats. hydralazine 100 mg tablet 100 mg PO Q12H Patient Comments: pt stated and verified with picture of medication bottle cholecalciferol (vitamin D3) [Vitamin D3] 125 mcg (5,000 unit) tablet 5,000 unit PO DAILY (DME) FreeStyle Alexandro 3 Plus Sensor Device See Rx Instructions .Route Qty: 2 3RF Rx Instructions: Check glucose continuous As directed insulin glargine [Lantus Solostar U-100 Insulin] 100 unit/mL (3 mL) insulin pen 14 unit subcut HS Qty: 15 3RF <Rocky Adam MD - Last Filed: 05/05/24 18:54> Follow-up/Referrals: Sulema Lennon APRN [Primary Care Provider] - <Rocky Adam MD - Last Filed: 05/05/24 18:54>
--- OUTSIDE RECORDS SUMMARY | 2024-05-05 17:09 | XMS_ITS | Clinical Summary ---
Author Organization [facility] [employer] Address [address] [place] [address] Care Team Providers Care Road Grader Operator Name Role Phone Jessie Dickson MANAGER PROGRAMMING-TRAFFIC OPERATIONS ENGINEER Primary Care Pro vider Source Comments [facility],non-owned Affiliates and Associated Physician Practices is amultiple site organization consisting of ambulatory clinics and hospital sitesin [place], [place] and [place]. This disclosure is being madepursuant to the Care Everywhere program and may not contain all information available regarding this patient. Last updated 17.[facility] [employer] Allergies Active Allergy Reactions Criticality Noted Date [...] 200 Each 11 06/09/2018 Active ergocalciferol (DRISDOL) 01515 units capsule Take 1 capsule by mouth [...] procedure) 2 tablet 01/21/2022 Active HYDROcodone-acetamino phen ([place]) 5-325 MG tablet Take 1 (one) tablet [...] Comments Blood Pressure 145/85 02/05/2022 12:20 PM STUDIO SET UP WORKER dr irizarry aware; ok to d/cv Pulse 74 02/05/2022 11:55 AM STUDIO SET UP WORKER Temperature 36.8 C (98.2 F) 09/13/2019 8:22 AM CDT Respiratory Rate 12 02/05/2022 11:5 0 AM STUDIO SET UP WORKER Oxygen Saturation 100% 02/05/2022 11: 55 AM STUDIO SET UP WORKER Inhaled Oxygen Concentration - - Weight 108.9 [...] (AMB) [facility] (11/01/2018 10:11 AM CDT) Pathologist [facility] [place] Hemoglobin A1c POCT 8.5% BLOOD SPECIMEN / Unknown 11/01/2018 10:11 AM CDT Tessie Pritchard MANAGER PROGRAMMING-TRAFFIC OPERATIONS ENGINEER LAB - [facility] CARE ORDERABLES * HEPATITIS C AB SCREEN RFLX NAAT QUANT (05/28/2018 12:13 PM CDT) Pathologist [facility] [place] Hepatitis C Antibody Non-react javier Non-reac tive 05/28/2018 1:18 PM CDT [facility] Comment: Hepatitis C Antibody [...] Thornton MD LAB - CHEMISTRY [facility] [address] [phone] * HIV-1 HIV-2 ANTIGEN/ANTIBODY (05/24/2018 5:08 PM CDT) [facility] HIV Antigen/Antibod y 1 & 2 Non-reacti ve Non-react javier 05/24/2018 5:54 PM CDT [facility] Comment: Neither HIV-1 p24 Antigen nor HIV-1/HIV-2 Antibodies are detected. Blood BLOOD SPECIMEN / Unknown Venipuncture / Unknown 05/24/2018 5:08 PM CDT 05/24/2018 5:16 PM CDT Namita Raymond MD LAB - HEMATOLOGY ORD [facility] [address] [place] [address], [facility] [phone] from Last 3 Months or Most Recently Relevant to Health Maintenance Advance Directives * Full Code (Latest Code Status on File) Date Activated Date Inactivated Comments 05/25/2018 12:57 AM 05/28/2018 5:22 PM * Full Code Date Activated Date Inactivated Comments 05/24/2018 6:24 PM 05/25/2018 12:[address] Grader Operator Relationship Specialty Start Date End Date Jessie Dickson APRN-JANET [address], [place] [phone] PCP - General 06/30/14
--- OUTSIDE RECORDS SUMMARY | 2024-05-05 17:09 | XMS_ITS | Encounter Summary ---
Author Organization [facility] Address [address] [place] [address] Care Team Providers Care Bird Tender Name Role Phone Jessie Dickson LITIGATION SPECIALIST-TRAVEL TICKETING REVIEWER Primary Care Pro vider Encounter Details Date Type Department Care Team (Late st Contact Info) Description 05/25/2018 Ophth Exam [facility] [place] [address] Regina Fritz MD [facility] [place] [address] Social History Tobacco Use Types Packs/Day Years [...] on filedocumented in this encounter Care Teams Bird Tender Relationship Specialty Start Date End Date Jessie Dickson APRN-JANET [address] [place] [phone] PCP - General 06/30/14 documented as of this encounter
--- OUTSIDE RECORDS SUMMARY | 2024-05-05 17:09 | XMS_ITS | Patient Health Summary ---
Author Organization [facility] Address [address] [place] [address] Care Team Providers Care Floral Department Specialist Name Role Phone Jessie Dickson CODER-COMMUNICATIONS ENGINEER Primary Care Pro vider Note from [facility],non-owned Affiliates and Associated Physician Practices is amultiple site organization consisting of ambulatory clinics and hospital sitesin [place], [place], [place] and [place]. This disclosure is being madepursuant to the Care Everywhere program and may not contain all information available regarding this patient. Last updated 17.[facility] Allergies * Metronidazole(Skin Reactions) -Medium Criticality * [...] nightly 11 refills remaining * ergocalciferol (DRISDOL) 43525 units capsule(Started 07/26/2018) Take 1 capsule by [...] 1 the morning of procedure) * HYDROcodone-acetaminophen ([place]) 5-325 MG tablet(Started 02/05/2022) Take 1 (one) [...] Comments Blood Pressure 145/85 02/05/2022 12:[address] garcia aware; ok to d/cv Pulse 74 02/05/2022 11:55 AM LOOM MECHANIC Temperature 36.8 C (98.2 F) 09/13/2019 8:22 AM CDT Respiratory Rate 12 02/05/2022 11:5 0 AM LOOM MECHANIC Oxygen Saturation 100% 02/05/2022 11: 55 AM LOOM MECHANIC Inhaled Oxygen Concentration - - Weight 108.9 kg (240 lb) 09/13/2019 8:2 2 AM CDT Height 160 cm (5' 3 ) 09/13/2019 8:22 AM CDT Body Mass Index 42.51 09/13/2019 8:22 AM CDT Procedures * US AV HEMODIALYSIS ACCESS(Performed 02/19/2022) Performed for End stage renal disease ([facility]) * IR AV FISTULA CREATION(Performed 02/05/2022) Performed for End stage renal disease ([facility]) * CBC W/O DIFFERENTIAL(Performed 01/21/2022) Performed for ESRD (end stage renal disease) ([facility]) * PT-INR(Performed 01/21/2022) Performed for ESRD (end stage renal disease) ([facility]) * PTT(Performed 01/21/2022) Performed for ESRD (end stage renal disease) ([facility]) * VAS RIGHT MAPPING FOR HEMODIALYSIS(Performed 01/09/2022) Performed for End stage renal disease ([facility]) * IR CENTRAL LINE REMOVAL(Performed 05/08/2021) Performed for End stage renal disease ([facility]) * IR CENTRAL LINE INSERT TUNNEL(Performed 04/17/2021) [...] laboratory test result, Drug-induced lupus erythematosus * LEGGETT/PROPERTY LOSS INSURANCE CLAIM ADJUSTER (MOHSEN) ANTIBODY IGG(Performed 09/13/2019) Performed for Positive [...] Positive JAYA (antinuclear antibody), Optic neuritis * MPO/KY 3 AUTOANTIBODIES PANEL(Performed 09/01/2018) Performed for Abnormal [...] Positive JAYA (antinuclear antibody), Optic neuritis * PROPERTY LOSS INSURANCE CLAIM ADJUSTER ANTIBODY(Performed 09/01/2018) Performed for Abnormal laboratory test [...] BASIC METABOLIC PANEL (CALCIUM TOTAL)(Performed 06/07/2018) * PROPERTY LOSS INSURANCE CLAIM ADJUSTER ANTIBODY(Performed 05/28/2018) * LEGGETT (SM) ANTIBODY MOHSEN(Performed 05/28/2018) * DNA ANTIBODY DOUBLE STRANDED(Performed 05/28/2018) * GLUCOSE - POINT OF CARE(Performed 05/28/2018) * CRYOGLOBULIN QUANTITATIVE(Performed 05/28/2018) * C-REACTIVE PROTEIN(Performed 05/28/2018) * HEPATITIS C AB SCREEN RFLX NAAT QUANT(Performed 05/28/2018) * HEPATITIS B SURFACE ANTIGEN W RFLX CONFIRMATION(Performed 05/28/2018) * MPO/KY 3 AUTOANTIBODIES PANEL(Performed 05/28/2018) * ANTI-NEUTROPHIL CYTOPLASMIC [...] diabetes mellitus with diabetic nephropathy, 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 Elio Garcia M.D. Interventional Nephrology [facility] [phone] CC: MD Dr. Modesto Canchola MD Beth Tripp MD US ORDERABLES * IR AV FISTULA CREATION (02/05/2022 11:55 AM LOOM MECHANIC) Anatomical Region Laterality Modality X-Ray Angiograph y Narrative 02/05/2022 4:32 PM LOOM MECHANIC Elio Garcia MD 02/05/2022 5:07 PM Procedure Date: 02/05/2022 Attending Surgeon and performing the procedure: Elio Garcia MD Chargemaster Specialist: Nohemy Martinez RN Medical indication for the [...] 1. ENDOVASCULAR AV FISTULA CREATION USING THE [employer]; G2171 2. MODERATE CONSCIOUS SEDATION INITIAL 15 MIN; 96177 3. MODERATE CONSCIOUS SEDATION ADDITIONAL 15 MIN; 22829 Findings: 1. The right medial brachial vein was cannulated with a 21 gauge micropuncture needle using ultrasound guidance for vascular access. The needle tip was observed entering the lumen of the vein real-time and permanent recording was obtained. 2. The lateral ulnar vein was selectively catheterized. An angiogram performed showed the lateral ulnar vein draining directly into a short sorter operator attack communicates with the radial veins and [...] observed with predominant contrast washout through the sorter operator to the superficial vessels. DESCRIPTION OF THE [...] distally using fluoroscopic guidance. Subsequently, a 6 Jordanian vascular sheath was placed. Using a 0.018 V-18 wire, the 4 Jordanian KA2 catheter was navigated to the ulnar vein in the region of the arteriovenous fistula creation target zone and venography performed: 2. The lateral ulnar vein was selectively catheterized. An angiogram performed showed the lateral ulnar vein draining directly into a short sorter operator attack communicates with the radial veins and [...] followed by the placement of a 4 Jordanian catheter. After the 4 Jordanian catheter was placed, a cocktail including 2000 [...] without any filling defects. Subsequently, a 4 Jordanian vascular sheath was placed and connected to [...] were removed. Contrast injection into the 6 Jordanian arterial sheath confirmed arteriovenous fistula creation between [...] not part of the AV fistula, 4 Jordanian KA2 catheter was advanced over the venous guide wire. With the aid of a 0.035 in Bentson guidewire the 4 Jordanian K a 2 catheter was used to [...] observed with predominant contrast washout through the sorter operator to the superficial vessels. Next, the KA2 [...] RECOMMENDATIONS: 1. The patient should follow-up with [facility] for ultrasound evaluations at approximately 1, 2, and 4 weeks from the date of procedure. The arteriovenous fistula should not be cannulated until cleared by either Dr. Azevedo or Dr. Garcia. The right arm should not be used for blood pressure measurements or phlebotomy. Dr Elio Garcia M.D. Interventional Nephrology [facility] [phone] Dr. Modesto Tripp MD [facility] Beth Tripp MD IR ORDERABLES * PTT (01/21/2022 9:30 AM LOOM MECHANIC) PTT 29.6 23.0 - 38.4 sec 01/21/2022 9:58 AM LOOM MECHANIC [facility] Blood BLOOD SPECIMEN / Unknown Lab Venipuncture / Unknown 01/21/2022 9:30 AM LOOM MECHANIC 01/21/2022 9:40 AM LOOM MECHANIC [facility] - 01/21/2022 9:58 AM LOOM MECHANIC Heparin Therapeutic Range for PTT: 69.0 - 110.0 seconds. Elio Garcia MD LAB - COAGULATION ORDERABLES Performing Organization Address City/State/[facility] Co de Phone Number [facility] [address] [place] [address] * PT-INR (01/21/2022 9:30 AM LOOM MECHANIC) PT 12.6 12.1 - 14.8 sec 01/21/2022 9:58 AM LOOM MECHANIC [facility] INR 0.9 0.9 - 1.1 01/21/2022 9:58 AM LOOM MECHANIC [facility] Blood BLOOD SPECIMEN / Unknown Lab Venipuncture / Unknown 01/21/2022 9:30 AM LOOM MECHANIC 01/21/2022 9:40 AM LOOM MECHANIC [facility] - 01/21/2022 9:58 AM LOOM MECHANIC Conventional Warfarin Anticoagulant Therapy: INR Reference Range: 2.0-3.0 Intensive Warfarin Anticoagulant Therapy: INR Reference Range: 2.5-3.5 Elio Garcia MD LAB - COAGULATION ORDERABLES [facility] [address] [place] [address] * (ABNORMAL) CBC W/O DIFFERENTIAL (01/21/2022 9:30 AM LOOM MECHANIC) Only the most recent of2 resultswithin the time period is included. WBC 10.4 4.4 - 10.7 x10E9/L 01/21/2022 9:50 AM LOOM MECHANIC [facility] RBC 3.84 3.80 - 5.20 x10E12/L 01/21/2022 9:[address] [facility] Hemoglobin 11.0(L) 12.0 - 15.6 gm/dL 01/21/2022 9:[address] [facility] Hematocrit 34.4(L) 35.9 - 45.5 % 01/21/2022 9:[address] [facility] MCV 89.6 80.7 - 98.3 fl 01/21/2022 9:[address] [facility] MCH 28.6 26.7 - 34.0 pg 01/21/2022 9:[address] [facility] MCHC 32.0 30.8 - 35.9 gm/dL 01/21/2022 9:[address] [facility] Platelet Count 344 153 - 416 x10E9/L 01/21/2022 9:[address] [facility] RDW-CV 13.2 12.1 - 14.9 % 01/21/2022 9:[address] [facility] MPV 9.2(L) 9.4 - 12.9 fl 01/21/2022 9:[address] [facility] Blood BLOOD SPECIMEN / Unknown Lab Venipuncture / Unknown 01/21/2022 9:30 AM LOOM MECHANIC 01/21/2022 9:40 AM [facility] Elio Garcia MD LAB - HEMATOLOGY ORDERABLES Performing Organization Address City/State/[facility] Co de Phone Number [facility] [address] [place] [address] * VAS RIGHT MAPPING FOR HEMODIALYSIS (01/09/2022 10:52 AM [facility]) Anatomical Region Laterality Modality X-Ray Angiograph y [...] forearm or the upper. The patient's senior pastor is Beth tripp MD. VS: There were [...] for 01/21/2022. Yola Garcia M.D. Interventional Neprology [facility] V[facility] [phone] Dr. Beth tirpp MD [facility] dialysis Beth Tripp [...] Tamir Azevedo M.D. Vascular and Interventional Radiology [facility] [phone] CC: Patient's senior pastor: Dr. Modesto Tripp Dialysis unit: [facility] Beth Tripp MD IR ORDERABLES * IR CENTRAL LINE INSERT TUNNEL (04/17/2021 2:38 PM LOOM MECHANIC) Anatomical Region Laterality Modality Chest, Upper Extremity X-Ray Ang iography Narrative 04/17/2021 2:39 PM LOOM MECHANIC Aaliyah Azevedo MD 04/17/2021 2:45 PM VASCULAR AND INTERVENTIONAL RADIOLOGY EXAMINATION: LEFT INTERNAL JUGULAR TUNNELED CENTRAL VENOUS CATHETER PLACEMENT. RIGHT INTERNAL JUGULAR TUNNELED CENTRAL VENOUS CATHETER REMOVAL Date: 04/17/2021 History: Bakari Smith is a 41 year old female with history of hypertension, diabetes, and end-stage renal disease who is currently dialyzing through a right thoracic tunneled hemodialysis catheter that was placed at [facility]. The patient states that the catheter has [...] completed, removal can be scheduled by calling [facility] V[facility] Access Center at [phone]. Tamir Azevedo M.D. Vascular and Interventional Radiology [facility] [phone] CC: Patient's senior pastor: Dr. Modesto Tripp Dialysis unit: [facility] Beth Tripp MD IR ORDERABLES * (ABNORMAL) URINALYSIS REFLEX TO MICROSCOPIC NO CULTURE (09/13/2019 9:58 AM CDT) Only the most recent of3 resultswithin the time period is included. Color UA Yellow Straw, Yellow, Colorless 09/13/2019 10:45 AM [facility] Clarity UA Slt Cloudy Clear, Slt Cloudy 09/13/2019 10:45 AM CDT [facility] Specific [place] UA 1.023 1.005 - 1.030 09/13/2019 10:45 AM [facility] pH UA 6.0 5.0 - 8.0 pH 09/13/2019 10:45 AM T [facility] Protein UA 3+(A) Negative mg/dL 09/13/2019 10:45 AM [facility] Glucose UA 2+(A) Negative mg/dL 09/13/2019 10:45 AM CDT [facility] Ketone UA Negative Negative mg/dL 09/13/2019 10:45 AM T [facility] Bilirubin UA Negative Negative mg/dL 09/13/2019 10:45 AM [facility] Blood UA Negative Negative 09/13/2019 10:45 AM T [facility] Nitrite UA Negative Negative 09/13/2019 10:45 AM CDT [facility] Leukocyte Esterase Negative Negative 09/13/2019 10:45 AM CDT [facility] Urobilinogen UA Negative Negative mg/dL 09/13/2019 10:45 AM T [facility] RBC UA 0-2 None Seen, 0-2, 3-5 /HPF 09/13/2019 10:45 AM T [facility] WBC UA 0-5 None Seen, 0-5 /HPF 09/13/2019 10:45 AM T [facility] Bacteria UA Trace None, Trace /HPF 09/13/2019 10:45 AM [facility] Squamous Epithelial Cells UA 0-2 None Seen, 0-2 /HPF 09/13/2019 10:45 AM [facility] Hyaline Casts UA 0-2 None Seen, 0-2 /LPF 09/13/2019 10:45 AM [facility] Urine URINE SPECIMEN OBTAINED BY CLEAN CATCH PROCEDURE / Unknown Collection / Unknown 09/13/2019 9:58 AM CDT 09/13/2019 10:23 AM CDT Narrative [facility] - 09/13/2019 10:45 AM CDT Addie Rodriguez MD LAB - URINALYSIS ORDERABLES [address] [address], [facility] [phone] * (ABNORMAL) JAYA BLOOD SINGLE PATTERN (09/13/2019 9:42 AM CDT) JAYA Pattern Homogeneo us(A) 09/16/2019 7:56 AM CDT [facility] ([facility]) JAYA Titer 1:320(A) 09/16/2019 7:56 AM CDT [facility] ([facility]) Comment: Performed By: [facility] [address] [place] [address] Field Tax Auditor: Sahil Chin MD, MS Blood BLOOD SPECIMEN / Unknown Lab Venipuncture / Unknown 09/13/2019 9:42 AM CDT 09/13/2019 10:24 AM CDT Addie Mili Rodriguez MD LAB - CHEMISTRY O RDERABLES [employer] [facility]) [address] * SS-A (SJOGREN'S) 52+60 ANTIBODIES (09/13/2019 9:42 AM CDT) SS-A 52 Antibody 1 0 - 40 AU/mL 09/15/2019 9:19 AM CDT [employer] ([facility]) Comment: INTERPRETIVE INFORMATION: SSA-52 (Ro52) (MOHSEN) [...] - 40 AU/mL 09/15/2019 9:19 AM CDT [employer] ([facility]) Comment: REFERENCE INTERVAL: SSA-60 (Ro60) (MOHSEN) Antibody, IgG 29 AU/mL or Less ............. Negative 30 - 40 AU/mL ................ Equivocal 41 AU/mL or Greater .......... Positive Performed By: [facility] [address] [place] [address] Field Tax Auditor: Sahil Chin MD, MS Blood BLOOD SPECIMEN / Unknown Lab Venipuncture / Unknown 09/13/2019 9:42 AM CDT 09/13/2019 10:23 AM CDT Addie Rodriguez MD LAB - CHEMISTRY O NARDA Performing Organization Address [facility] Co de Phone Number [facility] [employer] [facility]) [address] * LEGGETT/PROPERTY LOSS INSURANCE CLAIM ADJUSTER (MOHSEN) ANTIBODY IGG (09/13/2019 9:42 AM CDT) Leggett/PROPERTY LOSS INSURANCE CLAIM ADJUSTER (MOHSEN) Antibody IgG 3 0 - 40 AU/mL 09/15/2019 9:19 AM CDT [facility] [employer] ([facility]) Comment: INTERPRETIVE INFORMATION: Leggett/PROPERTY LOSS INSURANCE CLAIM ADJUSTER (MOHSEN) Antibody, IgG 29 AU/mL or Less ............. Negative 30 - 40 AU/mL ................ Equivocal 41 AU/mL or Greater .......... Positive Leggett/PROPERTY LOSS INSURANCE CLAIM ADJUSTER antibodies are frequently seen in patients with mixed connective tissue disease (MCTD) and are also associated with other systemic autoimmune rheumatic diseases (SARDs) such as systemic lupus erythematosus (SLE), systemic sclerosis, and myositis. Antibodies targeting the Leggett/PROPERTY LOSS INSURANCE CLAIM ADJUSTER antigenic complex also recognize Leggett antigens, therefore, the Leggett antibody response must be considered when interpreting these results. Performed By: [facility] [address] [place] [address] Field Tax Auditor: Sahil Chin MD, MS Blood BLOOD SPECIMEN / Unknown Lab Venipuncture / Unknown 09/13/2019 9:42 AM CDT 09/13/2019 10:23 AM CDT Addie Rodriguez MD LAB - CHEMISTRY O NARDA Performing Organization Address [facility]/ZIP Co de Phone Number [facility] ([facility]) [address] * (ABNORMAL) CHROMATIN ANTIBODY (09/13/2019 9:42 AM CDT) Only the most recent of3 resultswithin the time period is included. Pathologist [facility] Chromatin Antibody 52(H) 0 - 19 Units 09/17/2019 1:03 PM CDT [facility] [employer] ([facility]) Comment: INTERPRETIVE INFORMATION: Chromatin Antibody, IgG 19 Units or less: Negative 20 - 60 Units: Moderate Positive 61 Units or greater: Strong Positive The presence of anti-chromatin antibodies may be useful in the diagnosis of systemic lupus erythematosus (SLE) or drug-induced lupus (DIL) and have been reported to be predictive of lupus nephritis, especially when antibody levels are high. Performed By: [facility] [address] [place] [address] Field Tax Auditor: Sahil Chin MD, MS Blood BLOOD SPECIMEN / Unknown Lab Venipuncture / Unknown 09/13/2019 9:42 AM CDT 09/13/2019 10:24 AM CDT Addie Rodriguez MD LAB - SEROLOGY OR DERABLES [facility]) [address] [place] [address], [facility] * (ABNORMAL) DNA ANTIBODY DS CRITHIDIA TITER (09/13/2019 9:42 AM CDT) Only the most recent of2 resultswithin the time period is included. Pathologist [facility] dsDNA Antibody IgG 1:20(H) <1:10 2019 4:26 PM CDT [facility] [employer] ([facility]) Comment: INTERPRETIVE INFORMATION: Double-Stranded DNA (dsDNA) [...] recommendations for testing may be found at [email or web address] ndex.[email or web address]. Performed By: [facility] [address] [place] [address] Field Tax Auditor: Sahil Chin MD, MS Blood BLOOD SPECIMEN / Unknown Lab Venipuncture / Unknown 09/13/2019 9:42 AM CDT 09/13/2019 10:23 AM CDT Addie Rodriguez MD LAB - SEROLOGY OR DERABLES Performing Organization Address City/[facility]/ZIP Co de Phone Number [facility] [employer] [facility]) [address] [place] [address] * LEGGETT (SM) ANTIBODY MOHSEN (09/13/2019 9:42 AM CDT) Only the most recent of3 resultswithin the time period is included. Leggett (MOHSEN) Antibody 1 0 - 40 AU/mL 09/15/2019 6:32 AM CDT [facility] ([facility]) Comment: INTERPRETIVE INFORMATION: Leggett (MOHSEN) Antibody, [...] associations with SLE clinical manifestations. Performed By: [facility] [address] [place] [address] Field Tax Auditor: Sahil Chin MD, MS Blood BLOOD SPECIMEN / Unknown Lab Venipuncture / Unknown 09/13/2019 9:42 AM CDT 09/13/2019 10:23 AM CDT Addie Rodriguez MD LAB - CHEMISTRY O RDERABLES Performing Organization Address City/[facility]/ZIP Co de Phone Number [facility] [employer] ([facility]) [address] [place] [address] * (ABNORMAL) C-REACTIVE PROTEIN (09/13/2019 9:42 AM CDT) Only the most recent of4 resultswithin the time period is included. Pathologist [facility] C-Reactive Protein 1.2(H) <=0.5 mg/dL 09/13/2019 11:22 AM CDT [facility] Blood BLOOD SPECIMEN / Unknown Lab Venipuncture / Unknown 09/13/2019 9:42 AM CDT 09/13/2019 10:24 AM CDT Addie Rodriguez MD LAB - CHEMISTRY O RDMANISHA [address] [address], [facility] [phone] * (ABNORMAL) JAYA BLOOD SCREEN W/REFLEX TITER (09/13/2019 9:42 AM CDT) Only the most recent of4 resultswithin the time period is included. [facility] JAYA IgG Detected (A) None Detected 09/15/2019 3:12 PM CDT [employer] ([facility]) Comment: Antibodies to Anti-Nuclear Antibodies (JAYA) [...] dsDNA, histones, SS-A (Ro), SS-B (La), Leggett, Leggett/PROPERTY LOSS INSURANCE CLAIM ADJUSTER, Scl-70, Mariajose-1, centromeric proteins, other antigens extracted from the HEp-2 cell nucleus. JAYA CAITLIN assays have been reported to have lower sensitivities than JAYA IFA for systemic autoimmune rheumatic diseases (SARD). Negative results do not necessarily rule out SARD. Performed By: [facility] [address] [place] [address] Field Tax Auditor: Sahil Chin MD, MS Blood BLOOD SPECIMEN / Unknown Lab Venipuncture / Unknown 09/13/2019 9:42 AM CDT 09/13/2019 10:24 AM CDT Addie Rodriguez MD LAB - CHEMISTRY O RDMANISHA Performing Organization Address [facility] Co de Phone Number [facility] [employer] [facility]) [address] * HISTONE ANTIBODY (09/13/2019 9:42 AM CDT) Only the most recent of3 resultswithin the time period is included. Histone Antibody IgG 0.7 0.0 - 0.9 Units 09/16/2019 10:13 AM CDT [facility] [employer] ([facility]) Comment: INTERPRETIVE INFORMATION: Histone Ab, IgG 0.9 Units or less ............ Negative 1.0 - 1.5 Units .............. Weak Positive 1.6 - 2.5 Units .............. Moderate Positive 2.6 Units or greater ......... Strong Positive Performed By: [facility] [employer] [address] [place] [address] Field Tax Auditor: Sahil Chin MD, MS Blood BLOOD SPECIMEN / Unknown Lab Venipuncture / Unknown 09/13/2019 9:42 AM CDT 09/13/2019 10:23 AM CDT Addie Mili Rodriguez MD LAB - CHEMISTRY O RDERALD Performing Organization Address [facility] Co de Phone Number [facility] [employer] ([facility]) [address] * SS-B (SJOGREN'S) ANTIBODY (09/13/2019 9:42 AM CDT) Only the most recent of3 resultswithin the time period is included. SS-B Antibody 0 0 - 40 AU/mL 09/15/2019 6:32 AM CDT [facility] [employer] ([facility]) Comment: INTERPRETIVE INFORMATION: SSB (La) (MOHSEN) [...] (PSS) also have this antibody. Performed By: [place] [address] Field Tax Auditor: Sahil Chin MD, MS Blood BLOOD SPECIMEN / Unknown Lab Venipuncture / Unknown 09/13/2019 9:42 AM CDT 09/13/2019 10:23 AM CDT Addie Rodriguez MD LAB - CHEMISTRY O RDERABLES [facility] ([facility]) [address] [place] [address] * (ABNORMAL) ERYTHROCYTE SEDIMENTATION RATE (09/13/2019 9:42 AM CDT) Only the most recent of5 resultswithin the time period is included. Pathologist [facility] [place] Erythrocyte Sedimentation Rate Westergren 85(H) 0 - 20 MM/HR 09/13/2019 10:51 AM CDT [facility] Blood BLOOD SPECIMEN / Unknown Lab Venipuncture / Unknown 09/13/2019 9:42 AM CDT 09/13/2019 10:24 AM CDT Addie Rodriguez MD LAB - HEMATOLOGY ORDERABLES [address] [address] [phone] * (ABNORMAL) CBC WITH DIFFERENTIAL (09/13/2019 9:42 AM CDT) Only the most recent of3 resultswithin the time period is included. WBC 5.1 3.5 - 10.5 10 3/uL 09/13/2019 10:40 AM CDT [facility] RBC 4.53 3.90 - 5.00 10 6/uL 09/13/2019 10:40 AM CDT [facility] Hemoglobin 11.5(L) 12.0 - 15.5 g/dL 09/13/2019 10:40 AM [facility] Hematocrit 37.1 35.0 - 45.0 % 09/13/2019 10:40 AM [facility] MCV 81.9 81.0 - 97.0 fL 09/13/2019 10:40 AM [facility] MCH 25.4(L) 28.0 - 34.0 pg 09/13/2019 10:40 AM [facility] MCHC 31.0(L) 32.0 - 36.0 g/dL 09/13/2019 10:40 AM [facility] Platelet Count 278 150 - 400 10 3/uL 09/13/2019 10:40 AM [facility] RDW-SD 41.2 36.0 - 50.0 fL 09/13/2019 10:40 AM [facility] RDW-CV 13.8 11.2 - 14.8 % 09/13/2019 10:40 AM [facility] MPV 10.1 9.3 - 12.8 fL 09/13/2019 10:40 AM [facility] nRBC Absolute 0.00 0 10 3/uL 09/13/2019 10:40 AM [facility] nRBC Auto 0.0 0 /100 WBC 09/13/2019 10:40 AM [facility] Neutrophils % 47.2 35.0 - 70.0 % 09/13/2019 10:40 AM [facility] Lymphocytes % 41.8 19.7 - 55.1 % 09/13/2019 10:40 AM [facility] Monocytes % 8.8 3.0 - 15.0 % 09/13/2019 10:40 AM [facility] Eosinophils % 0.8 0.0 - 6.0 % 09/13/2019 10:40 AM [facility] Basophil % 0.4 0.0 - 1.5 % 09/13/2019 10:40 AM [facility] Neutrophils Absolute 2.4 1.6 - 7.0 10 3/uL 09/13/2019 10:40 AM [facility] Lymphocyte Absolute 2.2 0.8 - 2.9 10 3/uL 09/13/2019 10:40 AM [facility] Monocytes Absolute 0.45 0.14 - 0.66 10 3/uL 09/13/2019 10:40 AM [facility] Eosinophils Absolute 0.04 0.00 - 0.45 10 3/uL 09/13/2019 10:40 AM [facility] Basophils Absolute 0.02 0.00 - 0.06 10 3/uL 09/13/2019 10:40 AM [facility] Immature Granulocytes % 1.0 0.0 - 1.0 % 09/13/2019 10:40 AM [facility] Blood BLOOD SPECIMEN / Unknown Lab Venipuncture / Unknown 09/13/2019 9:42 AM CDT 09/13/2019 10:24 AM CDT Addie Rodriguez MD LAB - HEMATOLOGY ORDERABLES [address] [address], [facility] [phone] * (ABNORMAL) COMPREHENSIVE METABOLIC PANEL (09/13/2019 9:42 AM CDT) Only the most recent of5 resultswithin the time period is included. BUN 34(H) 7 - 26 mg/dL 09/13/2019 11:30 AM [facility] Creatinine 3.8(H) 0.6 - 1.2 mg/dL 09/13/2019 11:30 AM [facility] Sodium 137 136 - 145 mmol/L 09/13/2019 11:30 AM [facility] Potassium 4.6(H) 3.5 - 4.5 mmol/L 09/13/2019 11:30 AM [facility] Chloride 107 98 - 107 mmol/L 09/13/2019 11:30 AM [facility] CO2 23 22 - 29 mmol/L 09/13/2019 11:30 AM [facility] Glucose 174(H) 70 - 115 mg/dL 09/13/2019 11:30 AM [facility] Calcium 8.4 8.4 - 10.2 mg/dL 09/13/2019 11:30 AM [facility] Protein Total 6.5 6.0 - 8.3 g/dL 09/13/2019 11:30 AM [facility] Albumin 2.0(L) 3.4 - 5.0 g/dL 09/13/2019 11:30 AM [facility] Bilirubin Total 0.1(L) 0.2 - 1.2 mg/dL 09/13/2019 11:30 AM [facility] Alkaline Phosphatase 126 40 - 150 Units/L 09/13/2019 11:30 AM [facility] ALT 20 0 - 55 Units/L 09/13/2019 11:30 AM [facility] AST 23 5 - 34 Units/L 09/13/2019 11:30 AM [facility] Anion Gap 12 8 - 18 09/13/2019 11:30 AM [facility] BUN/Creatinine Ratio 9 7 - 23 09/13/2019 11:30 AM [facility] Osmolality Calculated 296 270 - 300 mOsm/kg 09/13/2019 11:30 AM [facility] Albumin/Globulin Ratio 0.4(L) 1.1 - 2.3 09/13/2019 11:30 AM [facility] eGFR 16(L) >60 mL/min/1.7 3 m2 09/13/2019 11:30 AM [facility] Blood BLOOD SPECIMEN / Unknown Lab Venipuncture / Unknown 09/13/2019 9:42 AM CDT 09/13/2019 10:24 AM CDT Addie Rodriguez MD LAB - CHEMISTRY O RDERABLES Performing Organization Address [facility]/State/[facility] Co de Phone Number [address] [address] [phone] * OPH VISUAL FIELD TEST [facility]U (11/04/2018 [...] Unknown 11/01/2018 10:11 AM CDT Tessie Pritchard CODER-COMMUNICATIONS ENGINEER LAB - POINT O F CARE [...] 19 units 09/02/2018 10:06 PM CDT [facility] ([facility]) Comment: Negative <20 Weak positive 20 - 39 Moderate positive 40 - 59 Strong positive >59 Blood BLOOD SPECIMEN / Unknown Lab Venipuncture / Unknown 09/01/2018 10:21 AM CDT 09/01/2018 10:40 AM CDT Narrative [facility] ([facility]) - 09/02/2018 10:06 PM CDT Performed at: 01 - [address] [id number] Vegetable Farm Manager: Negro Sullivan MD, Phone: [phone] Damaris Shetty DO LAB - SEROLOGY ORDER NAZ [facility] ([facility]) [address] [place] [address] * (ABNORMAL) MELISSA STAINING PATTERNS REFLEXED (09/01/2018 10:21 AM CDT) Only the most recent of3 resultswithin the time period is included. Homogeneous Pattern 1:160(H) 09/02/2018 2:11 PM CDT [facility] ([facility]) Note Comment 09/02/2018 2:11 PM CDT [facility] ([facility]) Comment: A positive JAYA result may occur in healthy individuals (low titer) or be associated with a variety of diseases. See interpretation chart which is not all inclusive: Pattern Antigen Detected Suggested Disease Association Homogeneous DNA(ds,ss), SLE - High titers Nucleosomes, Histones Drug-induced SLE Speckled Sm, PROPERTY LOSS INSURANCE CLAIM ADJUSTER, SCL-70, SLE,MCTD,PSS (diffuse form), SS-A/SS-B Sjogrens Nucleolar SCL-70, PM-1/SCL High titers Scleroderma, PM/DM Centromere Centromere PSS (limited form) w/Crest syndrome variable Nuclear Dot Sp100,[id number] Primary Biliary Cirrhosis Nuclear GP210, Primary Biliary Cirrhosis Membrane roxanne A,B,C Blood BLOOD SPECIMEN / Unknown Lab Venipuncture / Unknown 09/01/2018 10:21 AM CDT 09/01/2018 10:41 AM CDT Narrative [facility] ([facility]) - 09/02/2018 2:11 PM CDT Performed at: [address] [place] [address] [address] [place], [place] [id number] Vegetable Farm Manager: Neil Maloney PhD, Phone: [phone] Damaris Shetty DO LAB - PATHOLOGY/CYTO LOGY ORDERABLES Performing Organization Address [facility] de Phone Number [facility] ([facility]) [address] [place] [address] * PROPERTY LOSS INSURANCE CLAIM ADJUSTER ANTIBODY (09/01/2018 10:21 AM CDT) Only the most recent of2 resultswithin the time period is included. SM/PROPERTY LOSS INSURANCE CLAIM ADJUSTER Antibody 5.4 0.0 - 19.9 Units 09/03/2018 10:34 AM CDT [facility] Comment: MOHSEN Antibody Numeric Result Interpretation: <20.0 Units: Negative 20.0 - 39.0 Units: Weakly Positive >39.0 Units: Positive Blood BLOOD SPECIMEN / Unknown Lab Venipuncture / Unknown 09/01/2018 10:21 AM CDT 09/01/2018 10:40 AM CDT Damaris Shetty DO LAB - CHEMISTRY [facility] Performing Organization Address [facility] Co de Phone Number [facility] [address] [place] [address] * RHEUMATOID FACTOR BLOOD QUANTITATIVE (09/01/2018 10:21 AM CDT) Rheumatoid Factor <15 <30 IU/mL 09/01/2018 4:17 PM CDT [facility] Blood BLOOD SPECIMEN / Unknown Lab Venipuncture / Unknown 09/01/2018 10:21 AM CDT 09/01/2018 10:40 AM CDT Damaris Clearyancelmo BARCENAS LAB - CHEMISTRY ORDGarrison MONTEIRO [address] [phone] * THYROID PEROXIDASE ANTIBODY (09/01/2018 10:21 AM CDT) Pathologist [facility] Thyroid Peroxidase TPO Antibody 16 0 - 34 IU/mL 09/02/2018 3:07 AM CDT [facility] ([facility]) Blood BLOOD SPECIMEN / Unknown Lab Venipuncture / Unknown 09/01/2018 10:21 AM CDT 09/01/2018 10:40 AM CDT Narrative [facility] ([facility]) - 09/02/2018 3:07 AM CDT Performed at: - [address] [id number] Vegetable Farm Manager: Neil Maloney PhD, Phone: [phone] Damaris Clearyancelmo [facility] LAB - CHEMISTRY [place] [facility] ([facility]) [address] [place] [address] * THYROGLOBULIN ANTIBODY (09/01/2018 10:21 AM CDT) Thyroglobulin Antibody <1.0 0.0 - 0.9 IU/mL 09/02/2018 1:10 PM CDT [facility] ([facility]) Comment:Thyroglobulin Antibo dy measured by Beat[employer] Blood BLOOD SPECIMEN / Unknown Lab Venipuncture / Unknown 09/01/2018 10:21 AM CDT 09/01/2018 10:39 AM CDT Narrative [facility] ([facility]) - 09/02/2018 1:10 PM CDT Performed at: - [facility] [address] [place], [place] [id number] Vegetable Farm Manager: Neil Maloney PhD, Phone: [phone] Damaris Shetty LAB - CHEMISTRY [facility] THANIA Performing Organization Address City/[facility]/ZIP Co de Phone Number [facility] ([facility]) [address] [place] [address] * SS-A (SJOGREN'S) ANTIBODY (09/01/2018 10:21 AM CDT) Only the most recent of2 resultswithin the time period is included. Pathologist [facility] SS-A (Ro) Antibody 2.3 0.0 - 19.9 Units 09/03/2018 10:35 AM CDT [facility] Comment: MOHSEN Antibody Numeric Result Interpretation: <20.0 Units: Negative 20.0 - 39.0 Units: Weakly Positive >39.0 Units: Positive Blood BLOOD SPECIMEN / Unknown Lab Venipuncture / Unknown 09/01/2018 10:21 AM CDT 09/01/2018 10:40 AM CDT Damaris Shetty LAB - CHEMISTRY MADISONGarrison MONTEIRO Performing Organization Address City/[facility]/ZIP Co de Phone Number [facility] [address] [phone] * MPO/[place] 3 AUTOANTIBODIES PANEL (09/01/2018 10:21 AM CDT) Only the most recent of2 resultswithin the time period is included. Anti-myeloperox idase (MPO) Antibody <9.0 0.0 - 9.0 U/mL 09/03/2018 1:08 PM CDT [facility] ([facility]) Anti-proteinase 3 (KY-3) Abs <3.5 0.0 - 3.5 U/mL 09/03/2018 1:08 PM CDT [facility] ([facility]) Blood BLOOD SPECIMEN / Unknown Lab Venipuncture / Unknown 09/01/2018 10:21 AM CDT 09/01/2018 10:40 AM CDT Narrative [facility] ([facility]) - 09/03/2018 1:08 PM CDT Performed at: 01 - [address] [id number] Vegetable Farm Manager: Negro Sullivan MD, Phone: [phone] Damaris A Diogenes [facility] LAB - CHEMISTRY [place] [facility] ([facility]) [address] [place] [address] * TSH (09/01/2018 10:21 AM CDT) Only the most recent of3 resultswithin the time period is included. TSH 1.625 0.350 - 4.940 uIU/mL 09/01/2018 12:32 PM CDT [facility] Blood BLOOD SPECIMEN / Unknown Lab Venipuncture / Unknown 09/01/2018 10:21 AM CDT 09/01/2018 10:39 AM CDT Damarisrj Clearyancelmo [facility] LAB - CHEMISTRY [facility] Performing Organization Address [facility]/ZIP Co de Phone Number [address] [phone] * T4 FREE (09/01/2018 10:21 AM CDT) T4 Free 0.9 0.7 - 1.5 ng/dL 09/01/2018 12:32 PM CDT [facility] Blood BLOOD SPECIMEN / Unknown Lab Venipuncture / Unknown 09/01/2018 10:21 AM CDT 09/01/2018 10:39 AM CDT Damarisrj Clearyancelmo [facility] LAB - CHEMISTRY DELLGarrison THANIA Performing Organization Address City/[facility]/[place] [address], [facility] [phone] * OPH OCT TEST SLU (06/08/2018 12:00 [...] AM CDT 06/07/2018 Narrative Resulting Agency Comment [facility] [address] [facility] [id number] Tessie Pritchard CODER-COMMUNICATIONS ENGINEER LAB - URINE C HEMISTRY ORDERABLES [facility] INSURANCE BILL [address] [place] [address] * (ABNORMAL) VITAMIN D 25-HYDROXY (06/07/2018 11:49 AM CDT) Only the most recent of2 resultswithin the time period is included. Vitamin D, 25 Hydroxy 8.9(L) 30.0 - 100.0 ng/mL [facility] INSURANCE BILL Comment: Vitamin D deficiency has been defined by the [place] of Medicine and an Endocrine Society practice guideline as a level of serum 25-OH vitamin D less than 20 ng/mL (1,2). The Endocrine Society went on to further define vitamin D insufficiency as a level between 21 and 29 ng/mL (2). 1. IOM ([place] of Medicine). 2010. Dietary reference intakes for calcium and D. [place]: The National Academies Press. 2. Heavenly MF, Carlton SANDOVAL, Clive BAUMANN, et al. Evaluation, treatment, and prevention of vitamin D deficiency: an Endocrine Society clinical practice guideline. JCEM. 2010; 96(0):1911-30. 06/07/2018 11:4 9 AM CDT 06/07/2018 Narrative Resulting Agency Comment [facility] [address] [facility] [id number] Tessie Dolan Macho CODER-COMMUNICATIONS ENGINEER LAB - BAR CATCHER RY ORDERABLES [facility] INSURANCE BILL [address] [place] [address] * (ABNORMAL) BASIC METABOLIC PANEL (CALCIUM TOTAL) [...] CDT 06/07/2018 Narrative Resulting Agency Comment [facility] [address] [facility] [id number] Tessie Pritchard CODER-COMMUNICATIONS ENGINEER LAB - BAR CATCHER RY ORDERABLES [facility] INSURANCE BILL [address] [place] [address] * DNA ANTIBODY DOUBLE STRANDED (05/28/2018 12:26 PM CDT) dsDNA Antibody 22 0 - 29 IU/mL 06/01/2018 12:57 PM CDT [facility] Comment: dsDNA Antibody Numeric Result Interpretation: 0 - 29 IU/mL: Negative 30 - 75 IU/mL: Borderline >75 IU/mL: Positive Blood BLOOD SPECIMEN / Unknown Lab Venipuncture / Unknown 05/28/2018 12:26 PM CDT 05/28/2018 12:35 PM CDT Es Thornton MD LAB - HEMATOLOGY ORD ERABLES [address] [phone] * (ABNORMAL) GLUCOSE - POINT OF CARE (05/28/2018 12:21 PM CDT) Only the most recent of24 resultswithin the time period is included. [facility] Glucose WB/POC 294(H) 70 - 115 mg/dL 05/28/2018 12:24 PM CDT [facility] Specimen Type Arterial/C apillary 05/28/2018 12:24 PM CDT [facility] Blood BLOOD SPECIMEN / Unknown 05/28/2018 12:21 PM CDT 05/28/2018 12:24 PM CDT Narrative [facility] - 05/28/2018 12:24 PM CDT SOFTWARE DATABASE ARCHITECT: ELISSA CAMARA Dion Arreola MD LAB - POINT OF CARE ORDERABLES [address] [phone] * CRYOGLOBULIN QUANTITATIVE (05/28/2018 12:14 PM CDT) [facility] Cryoglobulin Quantitative None Detected None Detected mg/dL 05/31/2018 11:10 AM CDT [facility] Blood BLOOD SPECIMEN / Unknown Lab Venipuncture / Unknown 05/28/2018 12:14 PM CDT 05/28/2018 12:31 PM CDT Es Thornton MD LAB - CHEMISTRY [facility] Performing Organization Address [facility]/ZIP Co de Phone Number [address] [phone] * HEPATITIS C AB SCREEN RFLX NAAT QUANT (05/28/2018 12:13 PM CDT) Hepatitis C Antibody Non-react javier Non-reac tive 05/28/2018 1:18 PM CDT [facility] Comment: Hepatitis C Antibody screen indicates [...] - CHEMISTRY [facility] Performing Organization Address [facility] Co de Phone Number [address] [phone] * NEUTROPHIL CYTOPLASMIC ANTIBODY IGG (05/28/2018 12:13 PM CDT) Only the most recent of2 resultswithin the time period is included. Pathologist [facility] ANCA IgG <1:20 <1:20 05/30/2018 3:16 PM CDT [facility] ([facility]) Comment: The ANCA IFA is <1:20; [...] collagen vascular disease or arthritis. Performed by [employer], [address] [place] [id number] [email or web address], Sahil Chin MD, Lab. Director Blood BLOOD SPECIMEN / Unknown Lab Venipuncture / Unknown 05/28/2018 12:13 PM CDT 05/28/2018 12:36 PM CDT Es Thornton MD LAB - SEROLOGY ORDER NAZ [facility] ([facility]) [address] * COMPLEMENT TOTAL (05/28/2018 12:13 PM CDT) Complement Total CH50 >60 >41 U/mL 05/31/2018 2:10 PM CDT [facility] ([facility]) Blood BLOOD SPECIMEN / Unknown Lab Venipuncture / Unknown 05/28/2018 12:13 PM CDT 05/28/2018 12:35 PM CDT Narrative [facility] ([facility]) - 05/31/2018 2:10 PM CDT Performed at: [facility] [address] [id number] Vegetable Farm Manager: Neil Maloney PhD, Phone: [phone] Es Thornton MD LAB - CHEMISTRY [facility] [facility] Performing Organization Address City/[facility]/ZIP Co de Phone Number [facility] ([facility]) [address] [place] [address] * SCLERODERMA 70 (SCL) ANTIBODY (05/28/2018 12:13 PM CDT) SCL-70 Antibody 4.3 0.0 - 19.9 Units 06/01/2018 12:57 PM CDT [facility] Comment: MOHSEN Antibody Numeric Result Interpretation: <20.0 Units: Negative 20.0 - 39.0 Units: Weakly Positive >39.0 Units: Positive Blood BLOOD SPECIMEN / Unknown Lab Venipuncture / Unknown 05/28/2018 12:13 PM CDT 05/28/2018 12:35 PM CDT Es Thornton MD LAB - CHEMISTRY [facility] [address] [phone] * HEPATITIS B SURFACE ANTIGEN W RFLX CONFIRMATION (05/28/2018 12:13 PM CDT) Hepatitis B Virus Surface Antigen Non-reacti ve Non-reacti ve 05/28/2018 1:17 PM CDT [facility] Blood BLOOD SPECIMEN / Unknown Lab Venipuncture / Unknown 05/28/2018 12:13 PM CDT 05/28/2018 12:35 PM CDT Es Thornton MD LAB - CHEMISTRY [facility] [facility] Performing Organization Address City/[facility]/ZIP Co de Phone Number [address] [phone] * PTH INTACT W/O CALCIUM (05/28/2018 12:12 PM CDT) Pathologist [facility] [place] PTH Intact 49.1 15.0 - 65.0 pg/mL 05/28/2018 2:16 PM CDT [facility] Blood BLOOD SPECIMEN / Unknown Lab Venipuncture / Unknown 05/28/2018 12:12 PM CDT 05/28/2018 12:37 PM CDT Es Thornton MD LAB - CHEMISTRY [place] [address] [phone] * ANGIOTENSIN CONVERTING ENZYME BLOOD (05/28/2018 12:12 PM CDT) Pathologist [facility] [place] Angiotensin-Con verting Enzyme 60 14 - 82 U/L 05/31/2018 2:10 PM CDT [facility] ([facility]) Blood BLOOD SPECIMEN / Unknown Lab Venipuncture / Unknown 05/28/2018 12:12 PM CDT 05/28/2018 12:36 PM CDT Narrative [facility] ([facility]) - 05/31/2018 2:10 PM CDT Performed at: [facility] [address] [id number] Vegetable Farm Manager: Neil Mlaoney PhD, Phone: [phone] Es Thornton MD LAB - CHEMISTRY ORDE THANIA [facility] ([facility]) [address] [place] [id number] * COMPLEMENT C4 (05/28/2018 12:12 PM CDT) Complement C4 40 15 - 57 mg/dL 05/28/2018 1:03 PM CDT [facility] Blood BLOOD SPECIMEN / Unknown Lab Venipuncture / Unknown 05/28/2018 12:12 PM CDT 05/28/2018 12:36 PM CDT Es Thornton MD LAB - SEROLOGY ORDER NAZ Performing Organization Address City/[facility]/ZIP Co de Phone Number [address] [phone] * COMPLEMENT C3 (05/28/2018 12:12 PM CDT) Complement C3 127 82 - 193 mg/dL 05/28/2018 1:03 PM CDT [facility] Blood BLOOD SPECIMEN / Unknown Lab Venipuncture / Unknown 05/28/2018 12:12 PM CDT 05/28/2018 12:36 PM CDT Es Thornton MD LAB - CHEMISTRY ORDE THANIA Performing Organization Address City/[facility]/ZIP Co de Phone Number [address] [phone] * US RETROPERITONEAL COMPLETE (05/26/2018 3:43 PM [...] Not Established mmol/L 05/26/2018 10:12 AM CDT [facility] Urine URINE SPECIMEN OBTAINED BY CLEAN CATCH PROCEDURE / Unknown Collection / Unknown 05/26/2018 9:44 AM CDT 05/26/2018 9:54 AM CDT Zach Morin MD LAB - URINE CHEMISTR Y ORDERABLES Performing Organization Address [facility] Co de Phone Number [address] [phone] * UREA NITROGEN URINE RANDOM (05/26/2018 9:44 AM CDT) Urea Nitrogen Random Urine 712 Not Established mg/dL 05/26/2018 10:54 AM CDT [facility] Urine URINE SPECIMEN OBTAINED BY CLEAN CATCH PROCEDURE / Unknown Collection / Unknown 05/26/2018 9:44 AM CDT 05/26/2018 10:42 AM CDT Ashish Mckee MD LAB - URINE CHEMISTR Y ORDERABLES Performing Organization Address [facility] de Phone Number [address] [phone] * CREATININE URINE RANDOM (05/26/2018 9:44 AM CDT) Creatinine Urine 85 Not Established mg/dL 05/26/2018 10:14 AM CDT [facility] Comment: Result obtained by dilution. Urine URINE SPECIMEN OBTAINED BY CLEAN CATCH PROCEDURE / Unknown Collection / Unknown 05/26/2018 9:44 AM CDT 05/26/2018 9:54 AM CDT Zach Morin MD LAB - URINE CHEMISTR Y ORDERABLES Performing Organization Address [facility] Co de Phone Number [address] [phone] * MAGNESIUM BLOOD (05/25/2018 9:29 PM CDT) Only the most recent of2 resultswithin the time period is included. Magnesium 1.8 1.6 - 2.6 mg/dL 05/25/2018 9:57 PM CDT [facility] Blood BLOOD SPECIMEN / Unknown Venipuncture / Unknown 05/25/2018 9:29 PM CDT 05/25/2018 9:35 PM CDT Albert Morejon MD LAB - CHEMISTRY PRESTON [place]TE[place] [address] [place] [address], [facility] [phone] * FLOW CYTOMETRY BODY FLUID (05/25/2018 3:00 PM CDT) Case Report Flow Cytometry Case: [id number] Authorizing Provider: Zach Morin MD Collected: 05/25/2018 03:00 PM Ordering Location: [address] Received: 05/25/2018 04:01 PM Pathologist: Chaz Arango MD Specimen: CSF 9 4:18 PM CDT [facility] Final Diagnosis Cerebrospinal fluid, flow cytometric immunophenotypic analysis: - No evidence of non Hodgkin lymphoma or high-grade myeloid neoplasm. - See interpretation. 9 4:18 PM CDT [facility] Flow Cytometry Interpretation The [...] flow cytometry specimen is reviewed for quality coordinator purposes. Overall, the cerebrospinal fluid specimen shows no evidence of involvement by non Hodgkin lymphoma or a high-grade myeloid neoplasm. Correlation with clinical findings is required. RETAIL MANAGER/NW 9 4:18 PM CDT [facility] Flow Cytometry Results Differential Result Comment Flow Cell Count /uL 440 Total Viability % 100 Lymphocytes % 91 Dim CD45 Region % 1 Monocytes % 3 Granulocytes % 4 9 4:18 PM CDT [facility] PATH[facility]Y LAB Client Specimen ID # [id number] 9 4:[address] [facility] PATH[facility]Y LAB Reason for test Blurry vision 368.8 9 4:18 PM T [facility] PATH[facility] LAB Number of markers 20 [...] A Flow CD8 A Flow CD30 A [place] 2+CD19+ A Lambda+CD19+ 9 4:18 PM T [facility] PATH[facility] LAB Disclaimer Test performed at [facility], [address] [place] [address], [id number]. *The established laboratory minimum viability is 70%. [...] high complexity clinical testing. 9 4:[address] [facility] PATH[facility]Y LAB Embedded Images 9 4:18 PM T [facility] LAB Fluid CEREBROSPINAL FLUID SPECIMEN / Unknown Collection / Unknown 05/25/2018 3:00 PM CDT 05/25/2018 4:01 PM CDT Zach Morin MD LAB - PATHOLOGY/CYTO LOGY ORDERABLES [facility] PATH[facility] LAB [address] [place] [address]. [place] [address], [facility] [phone] * PATHOLOGY SMEAR BODY FLUID (05/25/2018 11:30 AM CDT) Pathology Diff Review DIFFERENTIAL REVIEW - CONFIRMED DIFFERENTIAL REVIEW - CONFIRMED 05/25/2018 2:49 PM T [facility] Comment: Clinical history: Ms. Smith is a [id number] with a history of obesity, DM, and [...] Morin MD LAB - PATHOLOGY/CYTO LOGY ORDERABLES [address] [phone] * NEUROMYELITIS OPTICA APQ4 IGG CSF W/RFLX (05/25/2018 11:30 AM CDT) Neuromyelitis [facility]ica/AQP4 IgG CSF < 1:1 05/28/2018 5:16 PM CDT Adea ([facility]) Comment: Aquaporin-4 Receptor Antibody, IgG is [...] diagnostic for NMO. See Compliance Statement B: [email or web address] Performed by [facility], [address] [place] [id number] [email or web address], Sahil Chin MD, Lab. Director Cerebral spinal fluid CEREBROSPINAL FLUID SPECIMEN / Unknown Collection / Unknown 05/25/2018 11:30 AM CDT 05/25/2018 11:52 AM CDT Zach Morin MD LAB - BODY FLUID ORD ERABLES [facility]) [address] [place] [address] * DIFFERENTIAL MANUAL FLUID (05/25/2018 11:30 AM CDT) Segs % Fluid 7 % 05/25/2018 1:01 PM CDT [facility] Lymphocytes % Fluid 68 % 05/25/2018 1:01 PM CDT [facility] Monocytes % Fluid 4 % 05/25/2018 1:01 PM CDT [facility] Atypical Lymphs % Fluid 21 % 05/25/2018 1:01 PM CDT [facility] Cerebral spinal fluid CEREBROSPINAL FLUID SPECIMEN / Unknown Collection / Unknown 05/25/2018 11:30 AM CDT 05/25/2018 11:49 AM CDT Zach Morin MD LAB - BODY FLUID ORD ERABLES Performing Organization Address [facility]/ZIP Co de Phone Number [address] [phone] * GRAM STAIN (LAB ORDERED) (05/25/2018 11:30 AM CDT) Gram Stain Moderate White blood cells 05/25/2018 8:02 PM CDT [facility] Gram Stain No organisms seen 05/25/2018 8:02 PM CDT [facility] Microbiology Collection / Unknown 05/25/2018 11:30 AM CDT 05/25/2018 11:52 AM CDT Zach Morin MD LAB - MICROBIOLOGY O RDERABLES Performing Organization Address City/[facility]/ZIP Co de Phone Number [address] [phone] * CULTURE CSF+GRAM STAIN (05/25/2018 11:30 AM CDT) Culture No growth ESTEVAN 06/01/2018 3:34 AM CDT [facility] Gram Stain Rare Polymorphonuclear cells 06/01/2018 3:34 AM CDT [facility] Gram Stain No organisms seen 019 3:34 AM CDT [facility] Cerebral spinal fluid CEREBROSPINAL FLUID SPECIMEN / Unknown Collection / Unknown 05/25/2018 11:30 AM CDT 05/25/2018 11:52 AM CDT Zach Morin MD LAB - MICROBIOLOGY O RDMANISHA Performing Organization Address City/[facility]/ZIP Co de Phone Number [facility] [address] [place] [address], [facility] [phone] * HERPES SIMPLEX 1+2 PCR CSF (05/25/2018 11:30 AM CDT) Herpes Simplex Virus 1 PCR CSF Not detected Not detected 05/25/2018 9:44 PM CDT [facility] Herpes Simplex Virus 2 PCR CSF Not detected Not detected 05/25/2018 9:44 PM CDT [facility] Microbiology CEREBROSPINAL FLUID SPECIMEN / Unknown Collection / Unknown 05/25/2018 11:30 AM CDT 05/25/2018 11:52 AM CDT Zach Morin MD LAB - MICROBIOLOGY O NARDA Performing Organization Address City/[facility] Co de Phone Number [facility] [address] [place] [address], [facility] [phone] * ANGIOTENSIN CONVERTING ENZYME CSF (05/25/2018 11:30 AM CDT) Angiotensin-Convert ing Enzyme CSF 0.9 0.0 - 2.5 U/L 05/28/2018 8:50 PM CDT [facility] ([facility]) Comment: This test was developed and its performance characteristics determined by [employer]. The U.S. Food and Drug Administration has not approved or cleared this test; however, FDA clearance or approval is not currently required for clinical use. The results are not intended to be used as the sole means for clinical diagnosis or patient management decisions. Performed by [employer], [address] [place] [id number] [email or web address], Sahil Chin MD, Lab. Director Cerebral spinal fluid CEREBROSPINAL FLUID SPECIMEN / Unknown Collection / Unknown 05/25/2018 11:30 AM CDT 05/25/2018 11:52 AM CDT Zach Morin MD LAB - BODY FLUID ORD ERABLES Performing Organization Address [facility] Co de Phone Number [facility]) [address] [place] [address] * MYELIN BASIC PROTEIN CSF (05/25/2018 11:30 AM CDT) Myelin Basic Protein 1.62 0.00 - 5.50 ng/mL 05/28/2018 7:09 PM CDT [facility] ([facility]) Comment: INTERPRETIVE INFORMATION: Myelin Basic Protein Test developed and characteristics determined by [employer]. See Compliance Statement D: [employer]/CS Performed by [facility] [employer], [address] [place] [address] [email or web address], Sahil Chin MD, Lab. Director Cerebral spinal fluid CEREBROSPINAL FLUID SPECIMEN / Unknown Collection / Unknown 05/25/2018 11:30 AM CDT 05/25/2018 11:52 AM CDT Zach Morin MD LAB - BODY FLUID ORD ERABLES Performing Organization Address [facility] Co de Phone Number [facility]) [address] [place] [address] * CELL COUNT W DIFFERENTIAL CSF (05/25/2018 11:30 AM CDT) Color Fluid Colorless Colorless, Straw 05/25/2018 12:51 PM CDT [facility] Clarity Fluid Clear Clear 05/25/2018 12:51 PM CDT [facility] Volume Fluid 4.0 mL 05/25/2018 12:51 PM CDT [facility] WBC Calculation Fluid 498 /uL 05/25/2018 12:51 PM CDT [facility] RBC Calculation 0 /uL 9 12:51 PM CDT [facility] [employer] Fluid Negative Negative 05/25/2018 12:51 PM CDT [facility] Differential Manual Differential to follow. 05/25/2018 12:51 PM CDT [facility] Cerebral spinal fluid CEREBROSPINAL FLUID SPECIMEN / Unknown Collection / Unknown 05/25/2018 11:30 AM CDT 05/25/2018 11:49 AM CDT Zach Morin MD LAB - BODY FLUID ORD ERABLES Performing Organization Address [facility] Co de Phone Number [address] [phone] * PROTEIN CSF (05/25/2018 11:30 AM CDT) Protein CSF 20 15 - 45 mg/dL 05/25/2018 12:14 PM CDT [facility] Cerebral spinal fluid CEREBROSPINAL FLUID SPECIMEN / Unknown Collection / Unknown 05/25/2018 11:30 AM CDT 05/25/2018 11:51 AM CDT Zach Morin MD LAB - BODY FLUID ORD ERABLES Performing Organization Address [facility] Co de Phone Number [address] [phone] * (ABNORMAL) GLUCOSE CSF (05/25/2018 11:30 AM CDT) Glucose CSF 147(H) 40 - 70 mg/dL 05/25/2018 12:10 PM CDT [facility] Cerebral spinal fluid CEREBROSPINAL FLUID SPECIMEN / Unknown Collection / Unknown 05/25/2018 11:30 AM CDT 05/25/2018 11:54 AM CDT Zach Morin MD LAB - BODY FLUID ORD ERABLES Performing Organization Address [facility] Co de Phone Number [address] [phone] * SYPHILIS ANTIBODY CASCADING REFLEX (05/25/2018 4:03 AM CDT) Treponema pallidum Antibody Non-react javier Non-react javier 05/25/2018 5:33 AM CDT [facility] Comment: No Laboratory evidence of syphilis infection. Note: Circulating antibodies may be low or undetectable in early infection. If recent exposure is suspected, re-draw sample in 2-4 weeks and repeat testing. Blood BLOOD SPECIMEN / Unknown Lab Venipuncture / Unknown 05/25/2018 4:03 AM CDT 05/25/2018 4:43 AM CDT Namita [place] MD LAB - SEROLOGY ORDER NAZ Performing Organization Address City/[facility]/ZIP Co de Phone Number [facility] [address] [phone] * NEUROMYELITIS OPTICA ANTIBODY (05/25/2018 4:03 AM CDT) NMO Antibody IgG <1.5 0.0 - 3.0 U/mL 05/28/2018 5:08 PM CDT [facility] ([facility]) Comment: Negative: 0.0 - 3.0 Positive: >3.0 Blood BLOOD SPECIMEN / Unknown Lab Venipuncture / Unknown 05/25/2018 4:03 AM CDT 05/25/2018 4:43 AM CDT Narrative [facility] ([facility]) - 05/28/2018 5:08 PM CDT Performed at: [address] [place] [id number] Vegetable Farm Manager: Negro Sullivan MD, Phone: [phone] Namita [place] MD LAB - SEROLOGY ORDER NAZ Performing Organization Address City/[facility] Co de Phone Number [facility] ([facility]) [address] [phone] * HCG BETA BLOOD QUANTITATIVE (05/25/2018 4:03 AM CDT) Beta-hCG Total Quantitative <2 <5 mIU/mL 05/25/2018 5:18 AM CDT [facility] Comment: HCG Numeric Result Interpretation: Non- Females: < 5 mIU/mL Post-Menopausal Females: < 7 mIU/mL Blood BLOOD SPECIMEN / Unknown Lab Venipuncture / Unknown 05/25/2018 4:03 AM CDT 05/25/2018 4:43 AM CDT Monroe Wood MD LAB - CHEMISTRY [place] Organization Address City/State/ZIP Co de Phone Number [address] [phone] * MRI ORBITS OR FACE WWO CONTRAST [...] y 1 & 2 Non-reacti ve Non-react jvaier 05/24/2018 5:54 PM CDT [facility] Comment: Neither HIV-1 p24 Antigen nor HIV-1/HIV-2 Antibodies are detected. Blood BLOOD SPECIMEN / Unknown Venipuncture / Unknown 05/24/2018 5:08 PM CDT 05/24/2018 5:16 PM CDT Namita [place] MD LAB - HEMATOLOGY ORD ERABLES [facility] [address] [place] [address] * Visual Almazan (05/24/2018 2:58 PM CDT) [...] Albumin Random Urine >1,540.0 Not Established mcg/mL [facility] Urine specimen (specimen) 10/30/2015 12:30 PM CDT 10/30/2015 12:48 PM CDT Tessie Pritchard APRN-COMMUNICATIONS ENGINEER LAB - URINE C HEMISTRY ORDERABLES [address] [phone] * LIPID PROFILE (10/30/2015 12:18 PM CDT) Only the most recent of2 resultswithin the time period is included. Cholesterol Total 152 <200 mg/dL [facility] HDL 56 >40 mg/dL [facility] Comment: ATP III Classification of HDL Cholesterol: <40 mg/dL: Considered a major risk factor. >60 mg/dL: Considered a negative risk factor. LDL Calculated 76 <100 mg/dL [facility] Comment: ATP III Classification of LDL Cholesterol: <100 mg/dL: Optimal 100 - 129 mg/dL: Near Optimal/Above Optimal 130 - 159 mg/dL: Borderline High 160 - 189 mg/dL: High >190 mg/dL: Very High Triglycerides 98 <150 mg/dL [facility] Comment: ATP III Classification of Triglycerides: <150 mg/dL: Normal 150 - 199 mg/dL: Borderline High 200 - 400 mg/dL: High >500 mg/dL: Very High Blood specimen (specimen) BLOOD SPECIMEN / Unknown 10/30/2015 12:18 PM CDT 10/30/2015 12:48 PM CDT Tessie Dolan Macho MUNOZ-COMMUNICATIONS ENGINEER LAB - BAR CATCHER RY ORDERABLES [address] [phone] * GLUCOSE - POINT OF CARE (AMB) [facility] (04/10/2015 9:21 AM LOOM MECHANIC) Only the most recent of2 resultswithin the time period is included. Glucose POCT 214 mg/dL [facility] Capillary blood specimen (specimen) 04/10/2015 9:21 AM LOOM MECHANIC Tessie Magdaleno Pritchard APRN-COMMUNICATIONS ENGINEER LAB - POINT O F CARE ORDERABLES Performing Organization Address [facility]/ZIP Co de Phone Number [facility] * INSULIN ANTIBODY (09/12/2014 3:01 PM CDT) Insulin Antibody <5.0 uU/mL [facility] ([facility]) Comment: This test is also known as insulin autoantibody or IAA. Reference Range: <5.0 Negative > or = 5.0 Positive Blood specimen (specimen) BLOOD SPECIMEN / Unknown 09/12/2014 3:01 PM CDT 09/12/2014 3:35 PM CDT Narrative [facility] ([place]) - 09/21/2014 6:15 AM CDT Performed at: 01 - [facility] [address] [place] [address] [id number] Vegetable Farm Manager: Demarco Henderson MD, Phone: [phone] Tessie Pritchard APRN-COMMUNICATIONS ENGINEER LAB - BAR CATCHER RY ORDERABLES [facility] ([place]) * GLUTAMIC ACID DECARBOXYLASE ([place]) ANTIBODY (09/12/2014 3:01 PM CDT) [place]-65 <1.0 0.0 - 1.5 U/mL [facility] ([facility]) Blood specimen (specimen) BLOOD SPECIMEN / Unknown 09/12/2014 3:01 PM CDT 09/12/2014 3:35 PM CDT Narrative [facility] ([facility]) - 09/15/2014 5:15 PM CDT Performed at: [address] [place] [address] [id number] Vegetable Farm Manager: Sekou Dent MD, Phone: [phone] Tessie Pritchard [facility] LAB - SEROLOG Y ORDERABLES Performing Organization Address City/[facility] Co de Phone Number [facility]) * TISSUE TRANSGLUTAMINASE AB IGG (06/29/2014 4:51 PM CDT) [facility] TTG Antibody IgG 2 0 - 5 U/mL [facility]) Comment: Negative 0 - 5 Weak Positive 6 - 9 Positive >9 Blood specimen (specimen) BLOOD SPECIMEN / Unknown 06/29/2014 4:51 PM CDT 06/29/2014 5:26 PM CDT Narrative [facility]) - 07/01/2014 3:12 PM CDT Performed at: [address] [place] [address] [id number] Vegetable Farm Manager: Clemente Wiley PhD, Phone: [phone] Finn Clemens MD LAB - CHEMISTRY [place] [facility] ([facility]) * C-PEPTIDE (06/29/2014 4:51 PM CDT) [facility] C-Peptide 1.1 1.1 - 4.4 ng/mL [facility]) Comment:C-Peptide reference interval is for fasting patients. Blood specimen (specimen) BLOOD SPECIMEN / Unknown 06/29/2014 4:51 PM CDT 06/29/2014 5:26 PM CDT Narrative [facility] ([place]) - 07/02/2014 6:41 AM CDT Performed at: 01 - [address] [id number] Vegetable Farm Manager: Clemente Wiley PhD, Phone: [phone] Finn Clemens MD LAB - CHEMISTRY [place] Performing Organization Address City/[facility]/ZIP Co de Phone Number [facility]) * (ABNORMAL) HEMOGLOBIN A1C (06/29/2014 4:51 PM CDT) Hemoglobin A1c 11.1(H) 4.4 - 6.3 % [facility] Estimated Average Glucose 272 mg/dL [facility] Comment: HbA1c Interpretation: Treatment target values [...] Clemens MD LAB - CHEMISTRY [place] [address] [phone] * VITAMIN B12 (06/29/2014 4:51 PM CDT) Vitamin B12 520 213 - 816 pg/mL [facility] Blood specimen (specimen) BLOOD SPECIMEN / Unknown 06/29/2014 4:51 PM CDT 06/29/2014 5:26 PM CDT Finn lCemens MD LAB - CHEMISTRY ORDE RABLES [facility] Organization Address City/State/ZIP Co de Phone Number [facility] [address] [place] [address], [facility] [phone] Care Teams Floral Department Specialist Relationship Specialty Start Date End Date Jessie Dickson, CODER-COMMUNICATIONS ENGINEER [address] [address] PCP - General 06/30/14
--- OUTSIDE RECORDS SUMMARY | 2024-05-05 17:09 | XMS_ITS | Referral Summary ---
Author Organization [facility] [employer] Address [address] [place] [address] Care Team Providers Care Glue Machine Operator Name Role Phone Jessie Dickson BOILER SHOP MECHANIC-[employer] SALES REPRESENTATIVE Primary Care Pro vider Source Comments [facility],non-owned Affiliates and Associated Physician Practices is amultiple site organization consisting of ambulatory clinics and hospital sitesin [place], [place], [place] and [place]. This disclosure is being madepursuant to the Care Everywhere program and may not contain all information available regarding this patient. Last updated 17.[facility] [employer] Allergies Active Allergy Reactions Criticality Noted Date [...] 200 Each 11 06/09/2018 Active ergocalciferol (DRISDOL) 68306 units capsule Take 1 capsule by mouth [...] procedure) 2 tablet 01/21/2022 Active HYDROcodone-acetamino phen ([place]) 5-325 MG tablet Take 1 (one) tablet [...] Comments Blood Pressure 145/85 02/05/2022 12:20 PM PUBLIC RELATIONS SENIOR ASSOCIATE dr irizarry aware; ok to d/cv Pulse 74 02/05/2022 11:55 AM PUBLIC RELATIONS SENIOR ASSOCIATE Temperature 36.8 C (98.2 F) 09/13/2019 8:22 AM CDT Respiratory Rate 12 02/05/2022 11:5 0 AM PUBLIC RELATIONS SENIOR ASSOCIATE Oxygen Saturation 100% 02/05/2022 11: 55 AM PUBLIC RELATIONS SENIOR ASSOCIATE Inhaled Oxygen Concentration - - Weight 108.9 [...] javier Non-reac tive 05/28/2018 1:18 PM CDT [facility] Comment: Hepatitis C Antibody screen [...] Thornton MD LAB - CHEMISTRY [place] [id number] [address] [phone] * HIV-1 HIV-2 ANTIGEN/ANTIBODY (05/24/2018 5:08 PM CDT) HIV Antigen/Antibod y 1 & 2 Non-reacti ve Non-react javier 05/24/2018 5:54 PM CDT [facility] Comment: Neither HIV-1 p24 Antigen nor HIV-1/HIV-2 Antibodies are detected. Blood BLOOD SPECIMEN / Unknown Venipuncture / Unknown 05/24/2018 5:08 PM CDT 05/24/2018 5:16 PM CDT Namita [place] MD LAB - HEMATOLOGY ORD ERABLES [address] [phone] from Last 3 Months or Most Recently Relevant to Health Maintenance Advance Directives * Full Code (Latest Code Status on File) Date Activated Date Inactivated Comments 05/25/2018 12:57 AM 05/28/2018 5:22 PM * Full Code Date Activated Date Inactivated Comments 05/24/2018 6:24 PM 05/25/2018 12:57 AM Care Teams Glue Machine Operator Relationship Specialty Start Date End Date Jessie Dickson APRN-JANET [address] [place] [phone] PCP - General 06/30/14
--- OUTSIDE RECORDS SUMMARY | 2024-05-05 17:09 | XMS_ITS | Clinical Summary ---
Author Organization [facility] Address [address] [place] [address] Phone Care Team Providers Care National Sales Trainer Name Role Phone Jessie Dickson MD Primary Care Provider [phone] Allergies Active Allergy Reactions Criticality Noted Date [...] times daily. 05/28/2018 Active ergocalciferol (VITAMIN D2) 07336 units capsule TK 1 C PO Q [...] the skin Active Blood Glucose Monitoring Suppl ([employer] Verio Flex System) w/Device kit USE DIRECTED [...] Comments Influenza Vaccine (#1) 2023 Care Teams National Sales Trainer Relationship Specialty Start Date End Date Jessie Dickson MD [address] [place] [address] PCP - General 05/31/18
--- OUTSIDE RECORDS SUMMARY | 2024-05-05 17:11 | XMS_ITS | CONTINUITY OF CARE DOCUMENT ---
Author Name juany harrington Address Unknown Organization [facility] Address [address] [place] [address] [address] [place] [address] Phone [phone] Care Team Providers Care Tombstone Setter Name Role Phone Christoph Guerra MD Unavailable [phone] ANNITA WALTER MD Unavailable [phone] ANNITA WALTER MD Unavailable [phone] PROBLEMS Condition Status Date Provider Notes Cardiology [...] In-person encounter Office Visit Christoph Guerra MD [place] [facility] Cardiology examinationESRD on PDHTN essentialDiabetes mellitus, [...] Payer name Policy type / Coverage type [place] red libertarian ID [place] MED[place] Medicare [id number] ADVANCE DIRECTIVES Name Date DISCUSSED - NO [...]
--- OUTSIDE RECORDS SUMMARY | 2024-05-05 17:11 | XMS_ITS | Clinical Summary ---
Author Organization [facility] Address [address] [place] [address] Care Team Providers Care Brass Molder Name Role Phone Almita Rizzo RN Unavailable [phone] Beth Fernandez MD Unavailable [phone] Maday Oviedo MD Unavailable [phone] Tomasz Scott DO Unavailable [phone] No, Physician Primary Care Provider [phone] Meir Nazario MD Unavailable [phone] Allergies Active Allergy Reactions Criticality Noted Date [...] (04/10/2022): Added automatically from request for surgery [id number] Hypertension 2021 Stage 5 chronic kidney disease [...] Type Department Care Team Description 04/29/2024 Telephone [facility] [address] Mailstop [id number] [place] [address] Hien Mireles 04/29/2024 Telephone [facility] [address] [facility] [address] Mailstop [id number] [place] [address] Suad Hou 04/11/2024 Telephone [facility] [address] [facility] [address] Mailop [id number] [place] [address] Almita Rizzo RN Waitlist Maintenance 04/06/2024 11:14 AM ENGINEERING JOB TITLES - 04/06/2024 12:22 PM [facility] Emergency Department [address] [place] [address] Lavon Castaneda MD Pain of left upper extremity (Primary Dx) Discharge Disposition: Discharge to home or self care 03/29/2024 10:00 AM ENGINEERING JOB TITLES - 03/29/2024 11:59 PM ENGINEERING JOB TITLES Hospital Encounter [address] [address] Pre-transplant evaluation for kidney transplant; ESRD (end stage renal disease) (HCC) Discharge Disposition: Discharge to home or self care 03/22/2024 Documentation [facility] [address] [facility] [address] [place], [place] [address]op [id number] [place] [address] Almita Rizzo RN Waitlist Maintenance 02/29/2024 Telephone [facility] [address] [facility] [address] Mailstop [id number] [place] [address] Almita Rizzo, RN Waitlist Maintenance 02/26/2024 10:00 AM ENGINEERING JOB TITLES - 02/26/2024 11:59 PM ENGINEERING JOB TITLES Hospital Encounter [address] [address] Pre-transplant evaluation for kidney transplant; ESRD (end stage renal disease) (HCC) Discharge Disposition: Discharge to home or self care 02/26/2024 7:21 AM ENGINEERING JOB TITLES - 02/26/2024 11:59 PM ENGINEERING JOB TITLES Hospital Encounter [facility] [address] [place] [address] Pre-kidney transplant, patient on transplant list; ESRD (end stage renal disease) ([facility]) Discharge Disposition: Discharge to home or self care 02/18/2024 Documentation [facility] [address] [facility] [address] Mailstop [id number] [place] [address] Anjali Gastelum Appointment/Schedul es 02/18/2024 Documentation [facility] [address] [facility] [address] Mailstop [id number] [place] [address] Almita Rizzo, RN Waitlist Maintenance 02/16/2024 11:25 AM ENGINEERING JOB TITLES Lab [facility] ([facility]) [address] [place] [address] [phone] Pre-kidney transplant, patient on transplant list; ESRD (end stage renal disease) ([facility]) from Last 3 Months Immunizations Immunization [...] on file Legal Sex Female 11:50 PM ENGINEERING JOB TITLES Gender Identity Not on file Sexual Orientation Not on file Obstetrics History Para Term AB IAB SAB Ectopic Multiple Livin g Live Births 3 3 2 Date Outcome GA Total Labor Labor/2nd/3rd Weight Sex Type Anes PTL Yris A1 A5 Name Clin Para Para Para Last Filed Vital Signs Vital Sign Reading Time Taken Comments Blood Pressure 198/97 04/06/2024 12:20 PM ENGINEERING JOB TITLES Pulse 80 04/06/2024 12:20 PM ENGINEERING JOB TITLES Temperature 36.4 C (97.5 F) 04/06/2024 7:45 AM ENGINEERING JOB TITLES Respiratory Rate 18 04/06/2024 12:20 PM ENGINEERING JOB TITLES Oxygen Saturation 95% 04/06/2024 11:32 AM ENGINEERING JOB TITLES Inhaled Oxygen Concentration - - Weight 92.3 kg (203 lb 7.8 oz) 04/06/2024 7:45 A M ENGINEERING JOB TITLES Height 160 cm (5' 3 ) 02/26/2024 8:40 AM ENGINEERING JOB TITLES Body Mass Index 36.05 02/26/2024 8:40 AM ENGINEERING JOB TITLES Plan of Treatment Health Maintenance Due Date [...] this topic Medical Devices Implanted Type Area Mingler Operator Device Identifier Shelf Expiration Date Model / Serial / Lot [employer] Inc [id number] 15fr 62cm 2 Cuff Radiopaque Peritoneal Curl Catheter - Sn/A - [id number] Implanted:Qty : 1 on 03/14/2021 by Gildardo Leggett MD at [facility] Catheter N/A: Abdomen [employer] 07/01/2025 [id number] / N/A / [id number] Description:Peritoneal Dialy sis Catheter, Curl Cath, 2 Cuffs Graft Vasc 45cm 4-6mm [place] Acuseal Eptfe 3 Layer Kink Rst - [id number] - [id number] Implanted:Qty : 1 on 05/08/2022 by Uche Katz MD at [facility] Graft Left: Arm Wl [employer] [id number] 05/21/2024 [id number] / [id number] / 00 Procedures Procedure Name Priority Date/Time Associated Diagnosis Comments TROPONIN T HIGH-SENSITIVITY 2-HOUR Timed 04/06/2024 11:12 AM ENGINEERING JOB TITLES XR SHOULDER LEFT 2 OR MORE VIEWS ED 04/06/2024 8:55 AM ENGINEERING JOB TITLES XR CHEST 1 VIEW ED 04/06/2024 8:55 AM ENGINEERING JOB TITLES EGFR STAT 04/06/2024 8:24 AM ENGINEERING JOB TITLES DIFFERENTIAL AUTO STAT 04/06/2024 8:2 4 AM ENGINEERING JOB TITLES HCG, BLOOD, QUANTITATIVE STAT 04/06/2024 8:24 AM ENGINEERING JOB TITLES TROPONIN T HIGH-SENSITIVITY SERIES (BASELINE, 2HR, 4HR, 6HR) STAT 04/06/2024 8:24 AM ENGINEERING JOB TITLES BASIC METABOLIC PANEL STAT 04/06/2024 8:24 AM ENGINEERING JOB TITLES CBC WITH AUTO DIFFERENTIAL STAT 04/06/2024 8:24 AM ENGINEERING JOB TITLES ECG 12-LEAD STAT 04/06/2024 8:18 AM ENGINEERING JOB TITLES HLA ANTIBODY SCREEN - SAB (CLASS I AND CLASS II) Routine 03/29/2024 10:00 AM ENGINEERING JOB TITLES Pre-transplant evaluation for kidney transplant ESRD (end stage renal disease) (HCC) HLA ANTIBODY SCREEN BY PRA OR SAB PER SCHEDULE (CLASS I AND CLASS II) Routine 03/29/2024 10:00 AM ENGINEERING JOB TITLES Pre-transplant evaluation for kidney transplant ESRD (end stage renal disease) (HCC) STRESS ECHO PHARMACOLOGIC W DOPPLER/CF W CONTRAST Routine 02/26/2024 10:12 AM ENGINEERING JOB TITLES Pre-kidney transplant, patient on transplant list ESRD (end stage renal disease) (HCC) HLA ANTIBODY SCREEN BY PRA OR SAB PER SCHEDULE (CLASS I AND CLASS II) Routine 02/26/2024 10:00 AM ENGINEERING JOB TITLES Pre-transplant evaluation for kidney transplant ESRD (end stage renal disease) (HCC) EGFR Routine 02/16/2024 11:34 AM ENGINEERING JOB TITLES Pre-kidney transplant, patient on transplant list ESRD (end stage renal disease) (HCC) DIFFERENTIAL AUTO Routine 02/16/2024 11: 34 AM ENGINEERING JOB TITLES Pre-kidney transplant, patient on transplant list ESRD (end stage renal disease) (HCC) CBC WITH AUTO DIFFERENTIAL Routine 02/16/2024 11:34 AM ENGINEERING JOB TITLES Pre-kidney transplant, patient on transplant list ESRD (end stage renal disease) (HCC) COMPREHENSIVE METABOLIC PANEL Routine 02/16/2024 11:34 AM ENGINEERING JOB TITLES Pre-kidney transplant, patient on transplant list ESRD (end stage renal disease) (HCC) PHOSPHORUS Routine 02/16/2024 11:34 AM ENGINEERING JOB TITLES Pre-kidney transplant, patient on transplant list ESRD (end stage renal disease) (HCC) PTH Routine 02/16/2024 11:34 AM ENGINEERING JOB TITLES Pre-kidney transplant, patient on transplant list ESRD (end stage renal disease) (HCC) HEMOGLOBIN A1C Routine 02/16/2024 11:34 AM ENGINEERING JOB TITLES Pre-kidney transplant, patient on transplant list ESRD (end stage renal disease) (HCC) HIV 1/2 ANTIBODY PLUS P24 ANTIGEN Routine 02/16/2024 11:34 AM ENGINEERING JOB TITLES Pre-kidney transplant, patient on transplant list ESRD (end stage renal disease) (HCC) HEPATITIS B SURFACE ANTIBODY (IMMUNE STATUS) Routine 02/16/2024 11:34 AM ENGINEERING JOB TITLES Pre-kidney transplant, patient on transplant list ESRD (end stage renal disease) (HCC) HEPATITIS B SURFACE ANTIGEN Routine 02/16/2024 11:34 AM ENGINEERING JOB TITLES Pre-kidney transplant, patient on transplant list ESRD (end stage renal disease) (HCC) HEPATITIS C ANTIBODY Routine 02/16/2024 11:34 AM ENGINEERING JOB TITLES Pre-kidney transplant, patient on transplant list ESRD (end stage renal disease) (HCC) HEPATITIS B CORE ANTIBODY, TOTAL Routine 02/16/2024 11:34 AM ENGINEERING JOB TITLES Pre-kidney transplant, patient on transplant list ESRD (end stage renal disease) (HCC) COLONOSCOPY 07/21/2023 10:23 AM CDT HM MAMMOGRAPHY Routine 06/04/2021 LIPID PANEL Routine 04/30/2021 12:22 PM ENGINEERING JOB TITLES Pre-transplant evaluation for kidney transplant End stage renal disease (HCC) from Last 3 Months or Most Recently Relevant to Health Maintenance Results * (ABNORMAL) Troponin T high-sensitivity 2-hour (04/06/2024 11:12 AM ENGINEERING JOB TITLES) Trop T hs 195(H) <=14 ng/L Comment: Interpretive Data For further hscTnT resources including the diagnostic algorithm and an aid in interpretation, copy and paste this link: https://nrl.testcatalog.org/show/hsTrop Current Interpretive Data last revised 2020. Testing performed by: [address] [address] Trop T hs pct delta -3 % DENNIS Comment:Testing performed by : [address] [address] Trop T hs interp Insignificant DENNIS Comment:Testing performed by : [address] [address] Blood 04/06/2024 11:1 2 AM ENGINEERING JOB TITLES 04/06/2024 11:21 AM ENGINEERING JOB TITLES us Lavon Castaneda MD LAB BLOOD ORDERABLE S Final Result CERNER MH [address] [facility] Department [place] [address] * XR Chest 1 Vw Portable (04/06/2024 8:55 AM ENGINEERING JOB TITLES) Anatomical Region Laterality Modality Body, Chest N/A Computed Radiogr aphy 04/06/2024 9:06 AM ENGINEERING JOB TITLES Narrative 04/06/2024 9:06 AM ENGINEERING JOB TITLES EXAM DESCRIPTION: XR CHEST 1 VIEW REASON [...] Albert Lopes M.D. KR: CECI Report ID: [id number] Reading Location: [id number] Procedure Note Albert Lopes MD - 04/06/2024 [...] Albert Lopes M.D. KR: CECI Report ID: [id number] Reading Location: [id number] Lavon COOPER XR PROCEDURES F inal Result * XR Shoulder Left 2 or More Views (04/06/2024 8:55 AM ENGINEERING JOB TITLES) Anatomical Region Laterality Modality Upper Extremities, Shoulder Left Comp uted Radiography 04/06/2024 9:06 AM ENGINEERING JOB TITLES Narrative 04/06/2024 9:07 AM ENGINEERING JOB TITLES EXAM DESCRIPTION: XR SHOULDER LEFT 2 OR [...] Albert Lopes M.D. KR: CECI Report ID: [id number] Reading Location: [id number] Procedure Note Albert Lopes MD - 04/06/2024 [...] Albert Lopes M.D. KR: CECI Report ID: [id number] Reading Location: [id number] us Lavon COOPER XR PROCEDURES F inal Result * (ABNORMAL) Troponin T high-sensitivity series (baseline, 2hr, 4hr, 6hr) (04/06/2024 8:24 AM ENGINEERING JOB TITLES) Trop T hs 200(H) <=14 ng/L Comment: Interpretive Data For further hscTnT resources including the diagnostic algorithm and an aid in interpretation, copy and paste this link: https://nrl.testcatalog.org/show/hsTrop Current Interpretive Data last revised 2020. Testing performed by: [address] [address] Blood 04/06/2024 8:24 AM ENGINEERING JOB TITLES 04/06/2024 8:33 AM ENGINEERING JOB TITLES us Lavon Castaneda MD LAB BLOOD ORDERABLE S Edited Result - Final YVONNENER [address] [facility] Department [place] [address] * (ABNORMAL) eGFR (04/06/2024 8:24 AM ENGINEERING JOB TITLES) eGFR 3(L) >=60 mL/min/1. 73 m2 Comment: [...] was last reviewed 2020. Testing performed by: [address] [address] Blood 04/06/2024 8:24 AM ENGINEERING JOB TITLES 04/06/2024 8:33 AM ENGINEERING JOB TITLES us Lavon Castaneda MD LAB BLOOD ORDERABLE S Final Result DENNIS [address] [facility] Department [place] [address] * (ABNORMAL) Differential, auto (04/06/2024 8:24 AM ENGINEERING JOB TITLES) Neutrophil abs 3.2 1.5 - 6.5 K/cumm Comment:Testing performed by : [address] [address] Imm gran abs 0.0 0.0 - 0.1 K/cumm DENNIS Comment:Testing performed by : [address] [address] Lymphocyte abs 2.2 0.8 - 3.3 K/cumm DENNIS Comment:Testing performed by : [address] [address] Monocyte abs 0.4 0.2 - 0.8 K/cumm DENNIS Comment:Testing performed by : [address] [address] Eosinophil abs 0.6(H) 0.0 - 0.5 K/cumm DENNIS Comment:Testing performed by : [address] [address] Basophil abs 0.1 0.0 - 0.1 K/cumm DENNIS Comment:Testing performed by : [address] [address] Neutrophil pct 49.0 % DENNIS Comment: Interpretive Data Percent cell count reference ranges are not reported, since discordance with absolute values may lead to misinterpretation of CBC data. Current Interpretive Data was last revised on 2017. Testing performed by: [address] [address] Imm gran pct 0.5 % DENNIS Comment: Interpretive Data Percent cell count reference ranges are not reported, since discordance with absolute values may lead to misinterpretation of CBC data. Current Interpretive Data was last revised on 2017. Testing performed by: [address] [address] Lymphocyte pct 34.0 % [facility] Comment: Interpretive Data Percent cell count reference ranges are not reported, since discordance with absolute values may lead to misinterpretation of CBC data. Current Interpretive Data was last revised on 2017. Testing performed by: [address] [address] Monocyte pct 6.6 % [facility] Comment: Interpretive Data Percent cell count reference ranges are not reported, since discordance with absolute values may lead to misinterpretation of CBC data. Current Interpretive Data was last revised on 2017. Testing performed by: [address] [address] Eosinophil pct 9.0 % [facility] Comment: Interpretive Data Percent cell count reference ranges are not reported, since discordance with absolute values may lead to misinterpretation of CBC data. Current Interpretive Data was last revised on 2017. Testing performed by: [address] [address] Basophil pct 0.9 % [facility] Comment: Interpretive Data Percent cell count reference ranges are not reported, since discordance with absolute values may lead to misinterpretation of CBC data. Current Interpretive Data was last revised on 2017. Testing performed by: [address] [address] Blood 04/06/2024 8:24 AM ENGINEERING JOB TITLES 04/06/2024 8:33 AM ENGINEERING JOB TITLES us Lavon Castaneda MD LAB BLOOD ORDERABLE S Final Result DENNIS [address] [facility] Department [place] [address] * (ABNORMAL) CBC with auto differential (04/06/2024 8:24 AM ENGINEERING JOB TITLES) WBC 6.5 3.8 - 9.9 K/cumm Comment:Testing performed by : [address] [place] [address] Hgb 10.4(L) 11.9 - 15.5 g/dL DENNIS Comment:Testing performed by : [address] [address] Hct 33.0(L) 35.6 - 45.5 % DENNIS Comment:Testing performed by : [address] [address] Plt 277 150 - 400 K/cumm DENNIS Comment:Testing performed by : [address], [address] MPV 9.6 9.1 - 12.3 fL DENNIS Comment:Testing performed by : [address], [address] RBC 3.98 3.90 - 5.20 M/cumm DENNIS Comment:Testing performed by : [address], [address] MCV 82.9 81.3 - 96.4 fL DENNIS Comment:Testing performed by : [address] [address] MCH 26.1(L) 27.1 - 33.3 pg DENNIS Comment:Testing performed by : [address] [address] MCHC 31.5(L) 32.3 - 35.7 g/dL DENNIS Comment:Testing performed by : [address], [address] RDW CV 15.8(H) 11.1 - 14.9 % DENNIS Comment:Testing performed by : [address], [address] RDW SD 47.7 35.7 - 48.1 fL DENNIS Comment:Testing performed by : [address], [address] NRBC abs 0.00 0.00 - 0.01 K/cumm DENNIS Comment:Testing performed by : [address], [address] Blood 04/06/2024 8:24 AM ENGINEERING JOB TITLES 04/06/2024 8:33 AM ENGINEERING JOB TITLES Lavon Castaneda MD LAB BLOOD ORDERABLE S Final Result Performing Organization Address [facility] Co de Phone Number DENNIS [address] [place] [address] * hCG, blood, quantitative (04/06/2024 8:24 AM ENGINEERING JOB TITLES) [facility] hCG, quant <5.0 0.0 - 5.0 IUnits/L Comment: Interpretive Data Male: < 5 IU/L Non- premenopausal Female: <5 IU/L The Rudy hCG Beta Quant assay procedure was used. Results from different manufacturers or methods may not be comparable. Serial testing should be performed using the same method. Interpretive Data was last revised on 2023 Testing performed by: [address] [address] Blood 04/06/2024 8:24 AM ENGINEERING JOB TITLES 04/06/2024 8:33 AM ENGINEERING JOB TITLES us Lavon Castaneda MD LAB BLOOD ORDERABLE S Edited Result - Final Performing Organization Address [facility] de Phone Number DENNIS [address] [place] [address] * (ABNORMAL) Basic metabolic panel (04/06/2024 8:24 AM ENGINEERING JOB TITLES) [facility] Sodium 139 135 - 145 mmol/L Comment:Testing performed by : [address] [address] Potassium, pl 4.5 3.3 - 4.9 mmol/L DENNIS JOSUE Comment:Testing performed by : [address] [address] Chloride 103 97 - 110 mmol/L DENNIS Comment:Testing performed by : [address] [address] CO2 21(L) 22 - 32 mmol/L DENNIS JOSUE Comment:Testing performed by : [address] [place]., [address] Anion gap 15 2 - 15 mmol/L DENNIS Comment:Testing performed by : [address] [address] BUN 54(H) 6 - 25 mg/dL DENNIS Comment:Testing performed by : [address] [address] Creatinine 13.60(H) 0.60 - 1.10 mg/dL DENNIS Comment:Testing performed by : [address] [address] Glucose 95 70 - 199 mg/dL DENNIS [...] was last revised 2022. Testing performed by: [address] [address] Calcium 9.3 8.5 - 10.3 mg/dL DENNIS Comment:Testing performed by : [address] [address] Blood 04/06/2024 8:24 AM ENGINEERING JOB TITLES 04/06/2024 8:33 AM ENGINEERING JOB TITLES us Lavon Castaneda MD LAB BLOOD ORDERABLE S Final Result DENNIS [address] [facility] Department [place] [address] * ECG 12 lead (04/06/2024 8:18 AM ENGINEERING JOB TITLES) Ventricular Rate EKG/Min 74 BPM [facility] Atrial Rate 74 BPM [facility] MA-Interval (MSEC) 148 ms [facility] QRS-Interval (MSEC) 70 ms [facility] QT-Interval (MSEC) 422 ms [facility] QTc 468 ms [facility] P [place] 65 degrees [facility] R [place] 1 degrees [facility] T [place] 31 degrees [facility] Diagnosis Normal sinus rhythm Low voltage QRS Septal infarct , age undetermined Abnormal ECG When compared with ECG of 06-MAR-2023 10:29, No significant change was found Confirmed by MEREDITH CANO M.D. ([id number]) on 04/08/2024 7:23:12 PM [facility] 04/06/2024 8:18 AM ENGINEERING JOB TITLES 04/08/2024 7:23 PM ENGINEERING JOB TITLES us Lavon Castaneda MD ECG ORDERABLES Fin al Result Performing Organization Address City/[facility]/ZIP Co de Phone Number [facility] * HLA Antibody Screen by PRA or SAB per Schedule (Class I and Class II) (03/29/2024 10:00 AM ENGINEERING JOB TITLES) Blood 03/29/2024 10:0 0 AM ENGINEERING JOB TITLES Narrative [facility] - ENGINEERING JOB TITLES Sample received in lab. Single Antigen Antibody Screen ordered. us Bashir Alston MD LAB BLOOD ORDERABLES Final R esult Performing Organization Address City/[facility]/ZIP Co de Phone Number [facility] * HLA Antibody Screen - SAB (Class I and Class II) (03/29/2024 10:00 AM ENGINEERING JOB TITLES) Class I Treatment EDTA [facility] Class I [...] per SSO. [facility] 03/29/2024 10:0 0 AM ENGINEERING JOB TITLES 04/04/2024 10:33 AM ENGINEERING JOB TITLES Narrative [facility] - 04/04/2024 10:33 AM ENGINEERING JOB TITLES Single-antigen HLA antibody screen is performed on serum samples using a method developed and validated by the [facility] HLA laboratory based on an FDA-approved IVD kit (LABScreen Single-Antigen, [employer], [place], [place]). All patient serum samples are pretreated with EDTA before the screen to prevent complement interference. Additional serum treatments, such as adsorption and DTT treatment, may be performed as indicated. Interpretive comments: Low risk: MFI [id number]. Moderate risk: MFI [id number]. Increased risk: MFI >/= 5000. The presence [...] antigens to avoid. Testing performed at the [facility], [address] [place] [address], 5th floor, [place], [address]. CLIA # [id number]. Amber eBrry, Ph.D., Blanket Maker, [facility] Laboratory Jonathan Brennan M.D., Ph.D., Bundle Collector, [facility] Laboratory Rehana Alarcon, Ph.D., CLIA Bundle Collector, [facility] Current methodology and interpretive comments last revised on 03/20/2022. us Bashir Alston MD LAB BLOOD ORDERABLES Edited Result - Final [facility] * STRESS ECHO PHARMACOLOGIC W DOPPLER/CF W CONTRAST (02/26/2024 10:12 AM ENGINEERING JOB TITLES) LV EF 58 % CARDIOREPORT Anatomical Region Laterality Modality Ultrasound 02/26/2024 8:00 AM ENGINEERING JOB TITLES Narrative 02/26/2024 11:07 AM ENGINEERING JOB TITLES Patient name: Bakari Smith Date of test: 02/26/2024 Hospital #: 0 Location: [facility] Interpreted by: Kip Pena M.D. Ph.D. Hoisting Engineer Pile Driving: Lainey Oh RDCS RN: Hilda Monk RN Reason for Test: pre-kidney transplant evaluation Study quality: Technically good Referring Physician: TONYA HAMMONDS MD Contrast Agent: 0.45 ml Definity Administered, (1.05 ml wasted). BASELINE STUDY: Wall Motion Scoring (1=Normal 2=Hypo 3=Akinetic 4=Dyskin./Aneurysm 0=Not visualized) Parasternal Long [place]:MAS=1 BAS=1 MIL=1 RENATO=1 Parasternal Short [place]:MAS=1 MIS=1 HI=1 MIL=1 MAL=1 MA=1 Apical 4 Chambers:=1 MIS=1 BIS=1 BAL=1 MAL=1 AL=1 AC=1 Apical 2 Chambers:AI=1 HI=1 BI=1 BA=1 MA=1 AA=1 AC=1 Ejection Fraction: [...] 2=Hypo 3=Akinetic 4=Dyskin./Aneurysm 0=Not visualized) Parasternal Long [place]:MAS=1 BAS=1 MIL=1 RENATO=1 Parasternal Short [place]:MAS=1 MIS=1 HI=1 MIL=1 MAL=1 MA=1 Apical 4 Chambers:=1 MIS=1 BIS=1 BAL=1 MAL=1 AL=1 AC=1 Apical 2 Chambers:AI=1 HI=1 BI=1 BA=1 MA=1 AA=1 AC=1 Intravenous dobutamine [...] Ph.D. By signing this report, the attending roll form operator certifies that he or she has personally supervised and interpreted the echocardiogram and has reviewed and or edited and agrees with the written comments contained within the report. Procedure Note Kip Pena MD PhD - 02/26/2024 Patient name: Bakari Smith Date of test: 02/26/2024 Hospital #: 0 Location: [facility] Interpreted by: Kip Pena M.D. Ph.D. Hoisting Engineer Pile Driving: Lainey Oh RDCS RN: Hilda Monk RN Reason for Test: pre-kidney transplant evaluation Study quality: Technically good Referring Physician: TONYA HAMMONDS MD Contrast Agent: 0.45 ml Definity Administered, (1.05 ml wasted). BASELINE STUDY: Wall Motion Scoring (1=Normal 2=Hypo 3=Akinetic 4=Dyskin./Aneurysm 0=Not visualized) Parasternal Long [place]:MAS=1 BAS=1 MIL=1 RENATO=1 Parasternal Short [place]:MAS=1 MIS=1 HI=1 MIL=1 MAL=1 MA=1 Apical 4 Chambers:=1 MIS=1 BIS=1 BAL=1 MAL=1 AL=1 AC=1 Apical 2 Chambers:AI=1 HI=1 BI=1 BA=1 MA=1 AA=1 AC=1 Ejection Fraction: [...] 2=Hypo 3=Akinetic 4=Dyskin./Aneurysm 0=Not visualized) Parasternal Long [place]:MAS=1 BAS=1 MIL=1 RENATO=1 Parasternal Short [place]:MAS=1 MIS=1 HI=1 MIL=1 MAL=1 MA=1 Apical 4 Chambers:=1 MIS=1 BIS=1 BAL=1 MAL=1 AL=1 AC=1 Apical 2 Chambers:AI=1 HI=1 BI=1 BA=1 MA=1 AA=1 AC=1 Intravenous dobutamine [...] Ph.D. By signing this report, the attending roll form operator certifies that he or she has personally supervised and interpreted the echocardiogram and has reviewed and or edited and agrees with the written comments contained within the report. us Tonya Hammonds MD CV ECHO PROCEDURES Final Result * HLA Antibody Screen by PRA or SAB per Schedule (Class I and Class II) (02/26/2024 10:00 AM ENGINEERING JOB TITLES) Blood 02/26/2024 10:0 0 AM ENGINEERING JOB TITLES Narrative HISTOTRAC - ENGINEERING JOB TITLES Sample received in lab and stored. No testing performed at this time. us Bashir Alston MD LAB BLOOD ORDERABLES Final R esult HISTOTRAC * (ABNORMAL) eGFR (02/16/2024 11:34 AM ENGINEERING JOB TITLES) eGFR 4(L) >=60 mL/min/1. 73 m2 Comment: [...] reviewed 2020. Blood 02/16/2024 11:3 4 AM ENGINEERING JOB TITLES 02/16/2024 12:02 PM ENGINEERING JOB TITLES us Tonya Hammonds MD LAB BLOOD ORDERABLE S Final Result [facility] Department [place] [address] * Differential, auto (02/16/2024 11:34 AM ENGINEERING JOB TITLES) Neutrophil abs 5.1 1.5 - 6.5 K/cumm Imm gran abs 0.1 0.0 - 0.1 K/cumm [facility] Lymphocyte abs 2.0 0.8 - 3.3 K/cumm [facility] Monocyte abs 0.6 0.2 - 0.8 K/cumm [facility] Eosinophil abs 0.1 0.0 - 0.5 K/cumm [facility] Basophil abs 0.0 0.0 - 0.1 K/cumm [facility] Neutrophil pct 64.7 % [facility] Comment: Interpretive Data Percent cell count reference ranges are not reported, since discordance with absolute values may lead to misinterpretation of CBC data. Current Interpretive Data was last revised on 2017. Imm gran pct 0.6 % [facility] Comment: Interpretive Data Percent cell count reference ranges are not reported, since discordance with absolute values may lead to misinterpretation of CBC data. Current Interpretive Data was last revised on 2017. Lymphocyte pct 25.3 % [facility] Comment: Interpretive Data Percent cell count reference ranges are not reported, since discordance with absolute values may lead to misinterpretation of CBC data. Current Interpretive Data was last revised on 2017. Monocyte pct 7.3 % [facility] Comment: Interpretive Data Percent cell count reference ranges are not reported, since discordance with absolute values may lead to misinterpretation of CBC data. Current Interpretive Data was last revised on 2017. Eosinophil pct 1.8 % [facility] Comment: Interpretive Data Percent cell count reference ranges are not reported, since discordance with absolute values may lead to misinterpretation of CBC data. Current Interpretive Data was last revised on 2017. Basophil pct 0.3 % [facility] Comment: Interpretive Data Percent cell count reference ranges are not reported, since discordance with absolute values may lead to misinterpretation of CBC data. Current Interpretive Data was last revised on 2017. Blood 02/16/2024 11:3 4 AM ENGINEERING JOB TITLES 02/16/2024 11:45 AM ENGINEERING JOB TITLES us Tonya Hammonds MD LAB BLOOD ORDERABLE S Final Result Performing Organization Address City/[facility] Co de Phone Number [facility] [place] [address] * HIV 1/2 Antibody plus p24 Antigen Blood (02/16/2024 11:34 AM ENGINEERING JOB TITLES) [facility] HIV 1/2 ab + p24 ag Nonreactive Nonreactive Comment:Nonreactive for HIV- 1 antigen and HIV-1/HIV-2 antibodies. No laboratory evidence of HIV infection. If acute HIV infection is suspected, consider testing for HIV-1 RNA. Current interpretive data was last revised on 21. Blood 02/16/2024 11:3 4 AM ENGINEERING JOB TITLES 02/16/2024 11:45 AM ENGINEERING JOB TITLES us Tonya Hammonds MD LAB MICROBIOLOGY - GENERAL ORDERABLES Final Result Performing Organization Address [facility] Co de Phone Number [facility] Department [place] [address] * (ABNORMAL) CBC with auto differential (02/16/2024 11:34 AM ENGINEERING JOB TITLES) [facility] WBC 7.8 3.8 - 9.9 K/cumm Hgb 8.6(L) 11.9 - 15.5 g/dL [facility] Hct 28.3(L) 35.6 - 45.5 % [facility] Plt 265 150 - 400 K/cumm [facility] MPV 10.2 9.1 - 12.3 fL [facility] RBC 3.24(L) 3.90 - 5.20 M/cumm [facility] MCV 87.3 81.3 - 96.4 fL [facility] MCH 26.5(L) 27.1 - 33.3 pg [facility] MCHC 30.4(L) 32.3 - 35.7 g/dL [facility] RDW CV 14.9 11.1 - 14.9 % [facility] RDW SD 48.1 35.7 - 48.1 fL [facility] NRBC abs 0.00 0.00 - 0.01 K/cumm [facility] Blood 02/16/2024 11:3 4 AM ENGINEERING JOB TITLES 02/16/2024 11:45 AM ENGINEERING JOB TITLES Tonya Hammonds MD LAB BLOOD ORDERABLE S Final Result [facility] [place] [address] * Hepatitis C antibody Blood (02/16/2024 11:34 AM ENGINEERING JOB TITLES) Pathologist [facility] Hep C Ab Nonreactive Nonreactive Comment:Antibodies to HCV no t detected. Does NOT exclude the possibility of recent exposure to HCV. Current interpretive data was last revised on 21 Blood 02/16/2024 11:3 4 AM ENGINEERING JOB TITLES 02/16/2024 11:45 AM ENGINEERING JOB TITLES us Tonya Hammonds MD LAB MICROBIOLOGY - GENERAL ORDERABLES Final Result Performing Organization Address [facility] Co de Phone Number [facility] [place] [address] * Hepatitis B core antibody, total Blood (02/16/2024 11:34 AM ENGINEERING JOB TITLES) Pathologist [facility] Hep B core IgG/IgM Nonreactive Nonreactive Blood 02/16/2024 11:3 4 AM ENGINEERING JOB TITLES 02/16/2024 11:45 AM ENGINEERING JOB TITLES Tonya Hammonds MD LAB MICROBIOLOGY - GENERAL ORDERABLES Final Result Performing Organization Address City/[facility] Co de Phone Number [facility] [place] [address] * Hepatitis B surface antibody (immune status) Blood (02/16/2024 11:34 AM ENGINEERING JOB TITLES) Pathologist [facility] HBsAb (immune status) Reactive Comment:This result is consi stent with immunity to Hepatitis B Virus when used in the setting of routine screening. Current interpretive data was last revised on 21 HBsAb (immune status) index 221.0 mIUnits/m L [facility] Blood 02/16/2024 11:3 4 AM ENGINEERING JOB TITLES 02/16/2024 11:45 AM ENGINEERING JOB TITLES Tonya Hammonds MD LAB MICROBIOLOGY - GENERAL ORDERABLES Final Result [facility] [place] [address] * Hepatitis B Surface Antigen Blood (02/16/2024 11:34 AM ENGINEERING JOB TITLES) [facility] HepBsAg Nonreactive Nonreactive Blood 02/16/2024 11:3 4 AM ENGINEERING JOB TITLES 02/16/2024 11:45 AM ENGINEERING JOB TITLES Tonya Hammonds MD LAB MICROBIOLOGY - GENERAL ORDERABLES Final Result Performing Organization Address City/[facility]/ZIP Co de Phone Number [facility] Department [place] [address] * (ABNORMAL) Phosphorus (02/16/2024 11:34 AM ENGINEERING JOB TITLES) Pathologist [facility] Phosphorus, pl 5.6(H) 2.3 - 4.5 mg/dL Blood 02/16/2024 11:3 4 AM ENGINEERING JOB TITLES 02/16/2024 11:45 AM ENGINEERING JOB TITLES Tonya Hammonds MD LAB BLOOD ORDERABLE S Final Result Performing Organization Address City/[facility]/ZIP Co de Phone Number [facility] Department [place] [address] * (ABNORMAL) PTH (02/16/2024 11:34 AM ENGINEERING JOB TITLES) [facility] PTH 335(H) 15 - 65 pg/mL Blood 02/16/2024 11:3 4 AM ENGINEERING JOB TITLES 02/16/2024 11:45 AM ENGINEERING JOB TITLES Tonya Hammonds MD LAB BLOOD ORDERABLE S Final Result Performing Organization Address [facility] de Phone Number [facility] [place] [address] * (ABNORMAL) Hemoglobin A1c (02/16/2024 11:34 AM ENGINEERING JOB TITLES) [facility] Hgb A1C 6.2(H) 4.0 - 5.6 % Estimated Average Glucose 131 mg/dL [facility] Comment: The ADA recommends reporting an estimated Average Glucose (eAG) with all Hemoglobin A1c results using the equation derived from a study of 507 normal and diabetic adults. Minority populations were underrepresented and children were not included. (Diabetes Care 2020; 43(S1): S66-S76). The eAG is not equivalent to a fasting glucose. Blood 02/16/2024 11:3 4 AM ENGINEERING JOB TITLES 02/16/2024 11:45 AM ENGINEERING JOB TITLES Tonya Hammonds MD LAB BLOOD ORDERABLE S Final Result Performing Organization Address [facility] de Phone Number [facility] [place] [address] * (ABNORMAL) Comprehensive metabolic panel (02/16/2024 11:34 AM ENGINEERING JOB TITLES) [facility] Sodium 140 135 - 145 mmol/L Potassium, pl 4.4 3.3 - 4.9 mmol/L [facility] Chloride 102 97 - 110 mmol/L [facility] CO2 28 22 - 32 mmol/L [facility] Anion gap 10 2 - 15 mmol/L [facility] BUN 46(H) 6 - 25 mg/dL [facility] Creatinine 10.77(H) 0.60 - 1.10 mg/dL [facility] Glucose 223(H) 70 - 199 mg/dL [facility] Comment: Interpretive Data Fasting glucose >/= [...] 2022. Calcium 8.8 8.5 - 10.3 mg/dL [facility] Bilirubin, total 0.2 0.1 - 1.2 mg/dL [facility] Protein, pl 6.8 6.5 - 8.5 g/dL [facility] Albumin 3.1(L) 3.5 - 5.0 g/dL [facility] Alk phos 233(H) 40 - 130 Units/L [facility] ALT 57(H) 7 - 45 Units/L [facility] AST 50(H) 10 - 45 Units/L [facility] Blood 02/16/2024 11:3 4 AM ENGINEERING JOB TITLES 02/16/2024 11:45 AM ENGINEERING JOB TITLES us Tonya Hammonds MD LAB BLOOD ORDERABLE S Final Result [facility] [place] [address] * Colonoscopy (07/21/2023 10:23 AM CDT) Anatomical Region Laterality Modality Other Narrative Procedure Note Early, Haritha Coronado MD - 07/21/2023 10:23 AM CDT [facility] Patient Name: Bakari Smith Procedure Date: 07/21/2023 10:23 AM Date of : 1980 Admit Type: Outpatient Age: 43 Gender: Female Attending MD: Haritha Stover M.D. Room: [facility] ENDOSCOPY ROOM 02 Note Status: Finalized [...] The scope was passed under direct vision.The [id number] Colonoscope was introducedthrough the anus and advanced to the the cecum, identifiedby appendiceal orifice and ileocecal valve. The colonoscopy was performed without difficulty. The patient tolerated the procedure well. The qualityof the bowel preparation was evaluated using the BBPS ([place] Bowel Preparation Scale) with scores of:Right Colon [...] On: 07/21/2023 10:23 AM Recognized by the [place] [employer] for promoting quality in endoscopy Haritha Stover MD ENDOSCOPY PROCEDURES Final Res ult * HM MAMMOGRAPHY (06/04/2021) Impressions Rashida Schneider - 06/04/2021 IMPRESSION: 1. Benign mammogram. READ BY: NINO BAJWA MD 06/05/2021 us Historical Provider HEALTH MAINTENANCE Final Result * Lipid panel (04/30/2021 12:22 PM ENGINEERING JOB TITLES) Cholesterol 139 30 - 199 mg/dL [facility] Comment: Interpretive Data Ages < or [...] revised on 2017. Triglycerides 64 <=149 mg/dL [facility] Comment: Interpretive Data Ages < or [...] revised on 2017. HDL 70 >=40 mg/dL [facility] Comment: Interpretive Data Ages < or [...] on 2017. LDL, calculated 56 <=129 mg/dL [facility] Comment: Interpretive Data Ages < or [...] on 2017. Non-HDL Cholesterol 69 mg/dL [facility] Comment: Interpretive Data Ages < or [...] last revised on 2017. Chol/HDL ratio 2 [facility] Blood 04/30/2021 12:2 2 PM ENGINEERING JOB TITLES 04/30/2021 1:03 PM ENGINEERING JOB TITLES us Ren Pelayo MD LAB BLOOD ORDERABLES Final Result [facility] Department [place] [address] from Last 3 Months or Most Recently Relevant to Health Maintenance Insurance [facility] [facility] IDPA MEDICARE MEDICARE [facility] MEDICARE [facility] MEDICARE SUPPLEMENT MEDICARE [facility] MEDICARE SUPPLEMENT Advance Directives For more information, please contact: [phone] * Full Code (Latest Code Status on File) Date Activated Date Inactivated Comments 07/21/2023 9:59 AM 07/21/2023 3:56 PM Care Teams Brass Molder Relationship Specialty Start Date End Date No, Physician PCP - General 02/16/24 Almita Rizzo, RN [address] [facility] [address] [place] [address] Gluing Machine Adjuster 04/04/21 Beth Fernandez MD [address] [place] [address] Referring Physician Nephrology 04/04/21 Maday Oviedo MD [address] [place] [address] Neurology 09/12/22 Tomasz Scott DO [address] [place], [place] [id number] Truck Driver Rubbish Collector Cardiology 09/16/22 Meir Nazario MD [address] [place] [address] Obstetrics and Gynecology 04/11/24
--- OUTSIDE RECORDS SUMMARY | 2024-05-05 17:11 | XMS_ITS | Encounter Summary ---
Author Organization [facility] Healthcare Address [address] [place] [address] Care Team Providers Care Hearse Driver Name Role Phone Jessie Dickson NP Primary Care Provider [phone] Almita Rizzo RN Unavailable [phone] Beth Fernandez MD Unavailable [phone] Maday Oviedo MD Unavailable [phone] Tomasz Scott DO Unavailable [phone] Bashir Alston MD Primary Care Provider [phone] No, Physician Primary Care Provider [phone] Meir Nazario MD Unavailable [phone] Reason for Visit * Reason Onset Date Comments READY TO SCHEDULE 04/28/2023 Encounter Details Date Type Department Care Team (Late st Contact Info) Description 04/28/2023 Telephone [facility] Specialty Services [address] [place] [address] Miscellaneous, Not In File READY TO SCHEDULE [...] on file Legal Sex Female 11:50 PM 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 Gender Identity Not on file Sexual Orientation Not on file documented as of this encounter Plan of Treatment Not on file documented as of this encounter Visit Diagnoses Not on filedocumented in this encounter Additional Health Concerns Infection Onset Date Last Indicated Resolved Time COVID: Suspected 12/01/2023 12/01/2023 12/01/2023 7:33 PM CDT documented as of this encounter Care Teams Hearse Driver Relationship Specialty Start Date End Date Jessie Dickson NP [address] [place] [address] PCP - General Nurse Practitioner 03/05/21 07/07/23 Bashir Alston MD [address] [facility] [address] [place] [address] PCP - General Transplant 07/08/23 07/08/23 No, Physician PCP - General 02/16/24 Almita Rizzo, RN [address] [facility] [address] [place] [address] Estate Attorney 04/04/21 Beth Fernandez MD [address] [facility] [address] [place] [address] Referring Physician Nephrology 04/04/21 Maday Oviedo MD [address] [facility] [address] [place] [address] Neurology 09/12/22 Tomasz Scott DO [address] [place] [address] Recreational Aide Cardiology 09/16/22 Meir Nazario MD [address] [facility] [address] [place] [address] Obstetrics and Gynecology 04/11/24 documented as of this encounter
--- OUTSIDE RECORDS SUMMARY | 2024-05-05 17:11 | XMS_ITS | Referral Summary ---
Author Organization [facility] Falkner at the [facility] Office Center Address [address] [place] [address] Care Team Providers Care Complex Care Nurse Practitioner Name Role Phone Almita Rizzo RN Unavailable [phone] Beth Fernandez MD Unavailable [phone] Maday Oviedo MD Unavailable [phone] Tomasz Scott DO Unavailable [phone], Physician Primary Care Provider [phone] Meir Nazario MD Unavailable [phone] Encounters Date Type Department Care Team Description 04/29/2024 Telephone [facility] Transplant Kidney [address] [facility] [address] Mail[address] [id number] [place] [address] Hien Mireles 04/29/2024 Telephone [facility] Transplant Kidney [address] [facility] [address] Mail[address] [phone] [place] [address] Suad Hou 04/11/2024 Telephone [facility] Transplant Kidney [address] [facility] [address] Mail[address] [id number] [place] [address] Almita Rizzo, RN Waitlist Maintenance 04/06/2024 11:14 AM PROFESSOR OF EDUCATION - 04/06/2024 12:22 PM [facility] Emergency [facility] Emergency Department [facility] [place] [address] Lavon Castaneda MD Pain of left upper extremity (Primary Dx) Discharge Disposition: Discharge to home or self care 03/29/2024 10:00 AM PROFESSOR OF EDUCATION - 03/29/2024 11:59 PM PROFESSOR OF EDUCATION Hospital Encounter [address] [address] Pre-transplant evaluation for kidney transplant; ESRD (end stage renal disease) (HCC) Discharge Disposition: Discharge to home or self care 03/22/2024 Documentation [facility] Transplant Kidney [address] [facility] [address] Mail[address] [phone] [place] [address] Almita Rizzo RN Waitlist Maintenance 02/29/2024 Telephone [facility] Transplant Kidney [address] [facility] [address] Mail[address] [phone] [place] [address] Almita Rizzo RN Waitlist Maintenance 02/26/2024 10:00 AM PROFESSOR OF EDUCATION - 02/26/2024 11:59 PM PROFESSOR OF EDUCATION Hospital Encounter [address] [address] Pre-transplant evaluation for kidney transplant; ESRD (end stage renal disease) (HCC) Discharge Disposition: Discharge to home or self care 02/26/2024 7:21 AM PROFESSOR OF EDUCATION - 02/26/2024 11:59 PM PROFESSOR OF EDUCATION Hospital Encounter [facility] [address] [place] [address] Pre-kidney transplant, patient on transplant list; ESRD (end stage renal disease) (HCC) Discharge Disposition: Discharge to home or self care 02/18/2024 Documentation [facility] Transplant Kidney [address] [facility] [address] Mail[address] [id number] [place] [address] Anjali Gastelum Appointment/Schedul es 02/18/2024 Documentation [facility] Transplant Kidney [address] [facility] [address] Mailstop [phone] [place] [address] Almita Rizzo RN Waitlist Maintenance 02/16/2024 11:25 AM PROFESSOR OF EDUCATION Lab [facility] ([facility]) [address] [place] [id number] Pre-kidney transplant, patient on transplant list; [...] (04/10/2022): Added automatically from request for surgery [id number] Hypertension 2021 Stage 5 chronic kidney disease [...] on file Legal Sex Female 11:50 PM PROFESSOR OF EDUCATION Gender Identity Not on file Sexual Orientation Not on file Last Filed Vital Signs Vital Sign Reading Time Taken Comments Blood Pressure 198/97 04/06/2024 12:20 PM PROFESSOR OF EDUCATION Pulse 80 04/06/2024 12:20 PM PROFESSOR OF EDUCATION Temperature 36.4 C (97.5 F) 04/06/2024 7:45 AM PROFESSOR OF EDUCATION Respiratory Rate 18 04/06/2024 12:20 PM PROFESSOR OF EDUCATION Oxygen Saturation 95% 04/06/2024 11:32 AM PROFESSOR OF EDUCATION Inhaled Oxygen Concentration - - Weight 92.3 kg (203 lb 7.8 oz) 04/06/2024 7:45 A M PROFESSOR OF EDUCATION Height 160 cm (5' 3 ) 02/26/2024 8:40 AM PROFESSOR OF EDUCATION Body Mass Index 36.05 02/26/2024 8:40 AM PROFESSOR OF EDUCATION Plan of Treatment Not on file Medical Devices Implanted Type Area Export Clerk Device Identifier Shelf Expiration Date Model / Serial / Lot [employer] [id number] [place] 15fr 62cm 2 Cuff Radiopaque Peritoneal Curl Catheter - Sn/A - [id number] Implanted:Qty : 1 on 03/14/2021 by Gildardo Leggett MD at [facility] Catheter N/A: Abdomen [employer] 07/01/2025 [id number] / N/A / [id number] Description:Peritoneal Dialy sis Catheter, Curl Cath, 2 Cuffs Graft Vasc 45cm 4-6mm [place] Acuseal Eptfe 3 Layer Kink Rst - [id number] - [id number] Implanted:Qty : 1 on 05/08/2022 by Uche Katz MD at [facility] Graft Left: Arm Wl [employer] [id number] 05/21/2024 [id number] / [id number] / 00 Procedures Procedure Name Priority Date/Time Associated Diagnosis Comments TROPONIN T HIGH-SENSITIVITY 2-HOUR Timed 04/06/2024 11:12 AM PROFESSOR OF EDUCATION XR SHOULDER LEFT 2 OR MORE VIEWS ED 04/06/2024 8:55 AM PROFESSOR OF EDUCATION XR CHEST 1 VIEW ED 04/06/2024 8:55 AM PROFESSOR OF EDUCATION EGFR STAT 04/06/2024 8:24 AM PROFESSOR OF EDUCATION DIFFERENTIAL AUTO STAT 04/06/2024 8:2 4 AM PROFESSOR OF EDUCATION HCG, BLOOD, QUANTITATIVE STAT 04/06/2024 8:24 AM PROFESSOR OF EDUCATION TROPONIN T HIGH-SENSITIVITY SERIES (BASELINE, 2HR, 4HR, 6HR) STAT 04/06/2024 8:24 AM PROFESSOR OF EDUCATION BASIC METABOLIC PANEL STAT 04/06/2024 8:24 AM PROFESSOR OF EDUCATION CBC WITH AUTO DIFFERENTIAL STAT 04/06/2024 8:24 AM PROFESSOR OF EDUCATION ECG 12-LEAD STAT 04/06/2024 8:18 AM PROFESSOR OF EDUCATION HLA ANTIBODY SCREEN - SAB (CLASS I AND CLASS II) Routine 03/29/2024 10:00 AM PROFESSOR OF EDUCATION Pre-transplant evaluation for kidney transplant ESRD (end stage renal disease) ([facility]) HLA ANTIBODY SCREEN BY PRA OR SAB PER SCHEDULE (CLASS I AND CLASS II) Routine 03/29/2024 10:00 AM PROFESSOR OF EDUCATION Pre-transplant evaluation for kidney transplant ESRD (end stage renal disease) ([facility]) STRESS ECHO PHARMACOLOGIC W DOPPLER/CF W CONTRAST Routine 02/26/2024 10:12 AM PROFESSOR OF EDUCATION Pre-kidney transplant, patient on transplant list ESRD (end stage renal disease) ([facility]) HLA ANTIBODY SCREEN BY PRA OR SAB PER SCHEDULE (CLASS I AND CLASS II) Routine 02/26/2024 10:00 AM PROFESSOR OF EDUCATION Pre-transplant evaluation for kidney transplant ESRD (end stage renal disease) ([facility]) EGFR Routine 02/16/2024 11:34 AM PROFESSOR OF EDUCATION Pre-kidney transplant, patient on transplant list ESRD (end stage renal disease) (HCC) DIFFERENTIAL AUTO Routine 02/16/2024 11: 34 AM PROFESSOR OF EDUCATION Pre-kidney transplant, patient on transplant list ESRD (end stage renal disease) (HCC) CBC WITH AUTO DIFFERENTIAL Routine 02/16/2024 11:34 AM PROFESSOR OF EDUCATION Pre-kidney transplant, patient on transplant list ESRD (end stage renal disease) (HCC) COMPREHENSIVE METABOLIC PANEL Routine 02/16/2024 11:34 AM PROFESSOR OF EDUCATION Pre-kidney transplant, patient on transplant list ESRD (end stage renal disease) (HCC) PHOSPHORUS Routine 02/16/2024 11:34 AM PROFESSOR OF EDUCATION Pre-kidney transplant, patient on transplant list ESRD (end stage renal disease) (HCC) PTH Routine 02/16/2024 11:34 AM PROFESSOR OF EDUCATION Pre-kidney transplant, patient on transplant list ESRD (end stage renal disease) (HCC) HEMOGLOBIN A1C Routine 02/16/2024 11:34 AM PROFESSOR OF EDUCATION Pre-kidney transplant, patient on transplant list ESRD (end stage renal disease) (HCC) HIV 1/2 ANTIBODY PLUS P24 ANTIGEN Routine 02/16/2024 11:34 AM PROFESSOR OF EDUCATION Pre-kidney transplant, patient on transplant list ESRD (end stage renal disease) (HCC) HEPATITIS B SURFACE ANTIBODY (IMMUNE STATUS) Routine 02/16/2024 11:34 AM PROFESSOR OF EDUCATION Pre-kidney transplant, patient on transplant list ESRD (end stage renal disease) (HCC) HEPATITIS B SURFACE ANTIGEN Routine 02/16/2024 11:34 AM PROFESSOR OF EDUCATION Pre-kidney transplant, patient on transplant list ESRD (end stage renal disease) (HCC) HEPATITIS C ANTIBODY Routine 02/16/2024 11:34 AM PROFESSOR OF EDUCATION Pre-kidney transplant, patient on transplant list ESRD (end stage renal disease) (HCC) HEPATITIS B CORE ANTIBODY, TOTAL Routine 02/16/2024 11:34 AM PROFESSOR OF EDUCATION Pre-kidney transplant, patient on transplant list ESRD (end stage renal disease) (HCC) COLONOSCOPY 07/21/2023 10:23 AM CDT HM MAMMOGRAPHY Routine 06/04/2021 LIPID PANEL Routine 04/30/2021 12:22 PM PROFESSOR OF EDUCATION Pre-transplant evaluation for kidney transplant End stage renal disease (HCC) from Last 3 Months or Most Recently Relevant to Health Maintenance Results * (ABNORMAL) Troponin T high-sensitivity 2-hour (04/06/2024 11:12 AM PROFESSOR OF EDUCATION) Trop T hs 195(H) <=14 ng/L Comment: Interpretive Data For further hscTnT resources including the diagnostic algorithm and an aid in interpretation, copy and paste this link: https://nrl.testcatalog.org/show/hsTrop Current Interpretive Data last revised 2020. Testing performed by: [address] [address] Trop T hs pct delta -3 % DENNIS JOSUE Comment:Testing performed by : [address] [address] Trop T hs interp Insignificant DENNIS JOSUE Comment:Testing performed by : [address] [address] Blood 04/06/2024 11:1 2 AM PROFESSOR OF EDUCATION 04/06/2024 11:21 AM PROFESSOR OF EDUCATION us Lavon Castaneda MD LAB BLOOD ORDERABLE S Final Result DENNIS JOSUE [address] [facility] Department [place] [address] * XR Chest 1 Vw Portable (04/06/2024 8:55 AM PROFESSOR OF EDUCATION) Anatomical Region Laterality Modality Body, Chest N/A Computed Radiogr aphy 04/06/2024 9:06 AM PROFESSOR OF EDUCATION Narrative 04/06/2024 9:06 AM PROFESSOR OF EDUCATION EXAM DESCRIPTION: XR CHEST 1 VIEW REASON [...] Albert Lopes M.D. KR: CECI Report ID: [id number] Reading Location: [id number] Procedure Note Albert Lopes MD - 04/06/2024 [...] Albert Lopes M.D. KR: CECI Report ID: [id number] Reading Location: [id number] Lavon Castaneda MD IMG XR PROCEDURES F inal Result * XR Shoulder Left 2 or More Views (04/06/2024 8:55 AM PROFESSOR OF EDUCATION) Anatomical Region Laterality Modality Upper Extremities, Shoulder Left Comp uted Radiography 04/06/2024 9:06 AM PROFESSOR OF EDUCATION Narrative 04/06/2024 9:07 AM PROFESSOR OF EDUCATION EXAM DESCRIPTION: XR SHOULDER LEFT 2 OR [...] Albert Lopes M.D. KR: CECI Report ID: [id number] Reading Location: [id number] Procedure Note Albert Lopes MD - 04/06/2024 [...] Albert Lopes M.D. KR: CECI Report ID: [id number] Reading Location: [id number] Lavon Castaneda MD IMG XR PROCEDURES F inal Result * (ABNORMAL) Troponin T high-sensitivity series (baseline, 2hr, 4hr, 6hr) (04/06/2024 8:24 AM PROFESSOR OF EDUCATION) Trop T hs 200(H) <=14 ng/L Comment: Interpretive Data For further hscTnT resources including the diagnostic algorithm and an aid in interpretation, copy and paste this link: https://nrl.testcatalog.org/show/hsTrop Current Interpretive Data last revised 2020. Testing performed by: [address] [address] Blood 04/06/2024 8:24 AM PROFESSOR OF EDUCATION 04/06/2024 8:33 AM PROFESSOR OF EDUCATION us Lavon Castaneda MD LAB BLOOD ORDERABLE S Edited Result - Final Performing Organization Address [facility] Co de Phone Number DENNIS [facility] [facility] [place] [address] * (ABNORMAL) eGFR (04/06/2024 8:24 AM PROFESSOR OF EDUCATION) eGFR 3(L) >=60 mL/min/1. 73 m2 Comment: [...] reviewed 2020. Testing performed by: [facility], [address] [place] [address]., [address] Blood 04/06/2024 8:24 AM PROFESSOR OF EDUCATION 04/06/2024 8:33 AM PROFESSOR OF EDUCATION us Lavon Castaneda MD LAB BLOOD ORDERABLE S Final Result Performing Organization Address City/[facility]/ZIP Co de Phone Number DENNIS [address] Department [place] [address] * (ABNORMAL) Differential, auto (04/06/2024 8:24 AM PROFESSOR OF EDUCATION) Neutrophil abs 3.2 1.5 - 6.5 K/cumm Comment:Testing performed by : [address] [address] Imm gran abs 0.0 0.0 - 0.1 K/cumm DENNIS Comment:Testing performed by : [address] [address] Lymphocyte abs 2.2 0.8 - 3.3 K/cumm DENNIS Comment:Testing performed by : [address] [address] Monocyte abs 0.4 0.2 - 0.8 K/cumm DENNIS Comment:Testing performed by : [address] [address] Eosinophil abs 0.6(H) 0.0 - 0.5 K/cumm DENNIS Comment:Testing performed by : [address] [address] Basophil abs 0.1 0.0 - 0.1 K/cumm [facility] Comment:Testing performed by : [address] [address] Neutrophil pct 49.0 % [facility] Comment: Interpretive Data Percent cell count reference ranges are not reported, since discordance with absolute values may lead to misinterpretation of CBC data. Current Interpretive Data was last revised on 2017. Testing performed by: [address] [address] Imm gran pct 0.5 % [facility] Comment: Interpretive Data Percent cell count reference ranges are not reported, since discordance with absolute values may lead to misinterpretation of CBC data. Current Interpretive Data was last revised on 2017. Testing performed by: [address] [address] Lymphocyte pct 34.0 % CERNER Comment: Interpretive Data Percent cell count reference ranges are not reported, since discordance with absolute values may lead to misinterpretation of CBC data. Current Interpretive Data was last revised on 2017. Testing performed by: [address] [address] Monocyte pct 6.6 % DENNIS Comment: Interpretive Data Percent cell count reference ranges are not reported, since discordance with absolute values may lead to misinterpretation of CBC data. Current Interpretive Data was last revised on 2017. Testing performed by: [address] [address] Eosinophil pct 9.0 % DENNIS Comment: Interpretive Data Percent cell count reference ranges are not reported, since discordance with absolute values may lead to misinterpretation of CBC data. Current Interpretive Data was last revised on 2017. Testing performed by: [address] [address] Basophil pct 0.9 % DENNIS Comment: Interpretive Data Percent cell count reference ranges are not reported, since discordance with absolute values may lead to misinterpretation of CBC data. Current Interpretive Data was last revised on 2017. Testing performed by: [address] [address] Blood 04/06/2024 8:24 AM PROFESSOR OF EDUCATION 04/06/2024 8:33 AM PROFESSOR OF EDUCATION us Lavon Castaneda MD LAB BLOOD ORDERABLE S Final Result [facility] [address] [facility] Department [place] [address] * (ABNORMAL) CBC with auto differential (04/06/2024 8:24 AM PROFESSOR OF EDUCATION) WBC 6.5 3.8 - 9.9 K/cumm Comment:Testing performed by : [address] [address] Hgb 10.4(L) 11.9 - 15.5 g/dL DENNIS JOSUE Comment:Testing performed by : [address] [address] Hct 33.0(L) 35.6 - 45.5 % DENNIS JOSUE Comment:Testing performed by : [address] [address] Plt 277 150 - 400 K/cumm DENNIS JOSUE Comment:Testing performed by : [address] [address] MPV 9.6 9.1 - 12.3 fL DENNIS JOSUE Comment:Testing performed by : [address] [address] RBC 3.98 3.90 - 5.20 M/cumm DENNIS JOSUE Comment:Testing performed by : [address] [address] MCV 82.9 81.3 - 96.4 fL DENNIS JOSUE Comment:Testing performed by : [address] [address] MCH 26.1(L) 27.1 - 33.3 pg DENNIS Comment:Testing performed by : [address] [address] MCHC 31.5(L) 32.3 - 35.7 g/dL DENNIS Comment:Testing performed by : [address] [address] RDW CV 15.8(H) 11.1 - 14.9 % DENNIS Comment:Testing performed by : [address] [address] RDW SD 47.7 35.7 - 48.1 fL DENNIS Comment:Testing performed by : [address] [address] NRBC abs 0.00 0.00 - 0.01 K/cumm DENNIS Comment:Testing performed by : [address] [address] Blood 04/06/2024 8:24 AM PROFESSOR OF EDUCATION 04/06/2024 8:33 AM PROFESSOR OF EDUCATION us Lavon Castaneda MD LAB BLOOD ORDERABLE S Final Result DENNIS [address] [facility] Department of Laboratories [place], [place] [id number] [phone] * hCG, blood, quantitative (04/06/2024 8:24 AM PROFESSOR OF EDUCATION) hCG, quant <5.0 0.0 - 5.0 IUnits/L Comment: Interpretive Data Male: < 5 IU/L Non- premenopausal Female: <5 IU/L The Rudy hCG Beta Quant assay procedure was used. Results from different manufacturers or methods may not be comparable. Serial testing should be performed using the same method. Interpretive Data was last revised on 2023 Testing performed by: [address] [address] Blood 04/06/2024 8:24 AM PROFESSOR OF EDUCATION 04/06/2024 8:33 AM PROFESSOR OF EDUCATION us Lavon Castaneda MD LAB BLOOD ORDERABLE S Edited Result - Final [facility] [address] [facility] Department [place] [address] * (ABNORMAL) Basic metabolic panel (04/06/2024 8:24 AM PROFESSOR OF EDUCATION) Sodium 139 135 - 145 mmol/L Comment:Testing performed by : [address] [address] Potassium, pl 4.5 3.3 - 4.9 mmol/L DENNIS Comment:Testing performed by : [address] [address] Chloride 103 97 - 110 mmol/L DENNIS Comment:Testing performed by : [address] [address] CO2 21(L) 22 - 32 mmol/L DENNIS Comment:Testing performed by : [address] [address] Anion gap 15 2 - 15 mmol/L DENNIS Comment:Testing performed by : [address] [address] BUN 54(H) 6 - 25 mg/dL DENNIS JOSUE Comment:Testing performed by : [address] [address] Creatinine 13.60(H) 0.60 - 1.10 mg/dL DENNIS Comment:Testing performed by : [address] [address] Glucose 95 70 - 199 mg/dL DENNIS [...] was last revised 2022. Testing performed by: [address] [address] Calcium 9.3 8.5 - 10.3 mg/dL DENNIS Comment:Testing performed by : [address] [address] Blood 04/06/2024 8:24 AM PROFESSOR OF EDUCATION 04/06/2024 8:33 AM PROFESSOR OF EDUCATION us Lavon Castaneda MD LAB BLOOD ORDERABLE S Final Result [facility] [address] [facility] Department of Laboratories [place], [place] [id number] * ECG 12 lead (04/06/2024 8:18 AM PROFESSOR OF EDUCATION) Pathologist [facility] Ventricular Rate EKG/Min 74 BPM [facility] Atrial Rate 74 BPM [facility] CA-Interval (MSEC) 148 ms [facility] QRS-Interval (MSEC) 70 ms [facility] QT-Interval (MSEC) 422 ms [facility] QTc 468 ms [facility] P [place] 65 degrees [facility] R [place] 1 degrees [facility] T [place] 31 degrees [facility] Diagnosis Normal sinus rhythm Low voltage QRS Septal infarct , age undetermined Abnormal ECG When compared with ECG of 06-MAR-2023 10:29, No significant change was found Confirmed by MEREDITH CANO M.D. ([id number]) on 04/08/2024 7:23:12 PM [facility] 04/06/2024 8:18 AM PROFESSOR OF EDUCATION 04/08/2024 7:23 PM PROFESSOR OF EDUCATION us Lavon Castaneda MD ECG ORDERABLES Fin al Result Performing Organization Address [facility] Co de Phone Number [facility] * HLA Antibody Screen by PRA or SAB per Schedule (Class I and Class II) (03/29/2024 10:00 AM PROFESSOR OF EDUCATION) Blood 03/29/2024 10:0 0 AM PROFESSOR OF EDUCATION Narrative HISTOTRAC - PROFESSOR OF EDUCATION Sample received in lab. Single Antigen Antibody Screen ordered. us Bashir Alston MD LAB BLOOD ORDERABLES Final R esult Performing Organization Address [facility] de Phone Number HISTOTRAC * HLA Antibody Screen - SAB (Class I and Class II) (03/29/2024 10:00 AM PROFESSOR OF EDUCATION) Class I Treatment EDTA HISTOTRAC Class I [...] per SSO. HISTOTRAC 03/29/2024 10:0 0 AM PROFESSOR OF EDUCATION 04/04/2024 10:33 AM PROFESSOR OF EDUCATION Narrative HISTOTRAC - 04/04/2024 10:33 AM PROFESSOR OF EDUCATION Single-antigen HLA antibody screen is performed on serum samples using a method developed and validated by the [facility] HLA laboratory based on an FDA-approved IVD kit (LABScreen Single-Antigen, [employer], [place], [place]). All patient serum samples are pretreated with EDTA before the screen to prevent complement interference. Additional serum treatments, such as adsorption and DTT treatment, may be performed as indicated. Interpretive comments: Low risk: MFI [id number]. Moderate risk: MFI [id number]. Increased risk: MFI >/= 5000. The presence [...] [facility], [facility], 5th floor, [place], [address]. [place] # [id number]. Amber Berry, Ph.D., Golf Sales Manager, HLA Laboratory Jonathan Brennan M.D., Ph.D., Facilities Director, HLA Laboratory Rehana Alarcon, Ph.D., CLIA Facilities Director, [facility] Clinical Laboratories Current methodology and interpretive comments last revised on 03/20/2022. us Bashir Alston MD LAB BLOOD ORDERABLES Edited Result - Final HISTOTRAC * STRESS ECHO PHARMACOLOGIC W DOPPLER/CF W CONTRAST (02/26/2024 10:12 AM PROFESSOR OF EDUCATION) LV EF 58 % CARDIOREPORT Anatomical Region Laterality Modality Ultrasound 02/26/2024 8:00 AM PROFESSOR OF EDUCATION Narrative 02/26/2024 11:07 AM PROFESSOR OF EDUCATION Patient name: Bakari Smith Date of test: 02/26/2024 Hospital #: 0 Location: [facility] Interpreted by: Kip Pena M.D. Ph.D. Asphalt Paver Operator: Lainey Oh RDCS RN: Hilda Monk RN Reason for Test: pre-kidney transplant evaluation Study quality: Technically good Referring Physician: TONYA HAMMONDS MD Contrast Agent: 0.45 ml Definity Administered, (1.05 ml wasted). BASELINE STUDY: Wall Motion Scoring (1=Normal 2=Hypo 3=Akinetic 4=Dyskin./Aneurysm 0=Not visualized) Parasternal Long [place]:MAS=1 BAS=1 MIL=1 RENATO=1 Parasternal Short [place]:MAS=1 MIS=1 OR=1 MIL=1 MAL=1 MA=1 Apical 4 Chambers:=1 MIS=1 BIS=1 BAL=1 MAL=1 AL=1 AC=1 Apical 2 Chambers:AI=1 OR=1 BI=1 BA=1 MA=1 AA=1 AC=1 Ejection Fraction: [...] 2=Hypo 3=Akinetic 4=Dyskin./Aneurysm 0=Not visualized) Parasternal Long [place]:MAS=1 BAS=1 MIL=1 RENATO=1 Parasternal Short [place]:MAS=1 MIS=1 OR=1 MIL=1 MAL=1 MA=1 Apical 4 Chambers:=1 MIS=1 BIS=1 BAL=1 MAL=1 AL=1 AC=1 Apical 2 Chambers:AI=1 OR=1 BI=1 BA=1 MA=1 AA=1 AC=1 Intravenous dobutamine [...] Ph.D. By signing this report, the attending shoe stainer certifies that he or she has personally supervised and interpreted the echocardiogram and has reviewed and or edited and agrees with the written comments contained within the report. Procedure Note Kip Pena MD PhD - 02/26/2024 Patient name: Bakari Smith Date of test: 02/26/2024 Hospital #: 0 Location: [facility] Interpreted by: Kip Pena M.D. Ph.D. Asphalt Paver Operator: Lainey Oh RDCS RN: Hilda Monk RN Reason for Test: pre-kidney transplant evaluation Study quality: Technically good Referring Physician: TONYA HAMMONDS MD Contrast Agent: 0.45 ml Definity Administered, (1.05 ml wasted). BASELINE STUDY: Wall Motion Scoring (1=Normal 2=Hypo 3=Akinetic 4=Dyskin./Aneurysm 0=Not visualized) Parasternal Long [place]:MAS=1 BAS=1 MIL=1 RENATO=1 Parasternal Short [place]:MAS=1 MIS=1 OR=1 MIL=1 MAL=1 MA=1 Apical 4 Chambers:=1 MIS=1 BIS=1 BAL=1 MAL=1 AL=1 AC=1 Apical 2 Chambers:AI=1 OR=1 BI=1 BA=1 MA=1 AA=1 AC=1 Ejection Fraction: [...] 2=Hypo 3=Akinetic 4=Dyskin./Aneurysm 0=Not visualized) Parasternal Long [place]:MAS=1 BAS=1 MIL=1 RENATO=1 Parasternal Short [place]:MAS=1 MIS=1 OR=1 MIL=1 MAL=1 MA=1 Apical 4 Chambers:=1 MIS=1 BIS=1 BAL=1 MAL=1 AL=1 AC=1 Apical 2 Chambers:AI=1 OR=1 BI=1 BA=1 MA=1 AA=1 AC=1 Intravenous dobutamine [...] Ph.D. By signing this report, the attending shoe stainer certifies that he or she has personally supervised and interpreted the echocardiogram and has reviewed and or edited and agrees with the written comments contained within the report. Tonya Hammonds MD CV ECHO PROCEDURES Final Result * HLA Antibody Screen by PRA or SAB per Schedule (Class I and Class II) (02/26/2024 10:00 AM PROFESSOR OF EDUCATION) Blood 02/26/2024 10:0 0 AM PROFESSOR OF EDUCATION Narrative HISTOTRAC - PROFESSOR OF EDUCATION Sample received in lab and stored. No testing performed at this time. us Bashir Alston MD LAB BLOOD ORDERABLES Final R esult HISTOTRAC * (ABNORMAL) eGFR (02/16/2024 11:34 AM PROFESSOR OF EDUCATION) eGFR 4(L) >=60 mL/min/1. 73 m2 Comment: [...] reviewed 2020. Blood 02/16/2024 11:3 4 AM PROFESSOR OF EDUCATION 02/16/2024 12:02 PM PROFESSOR OF EDUCATION us Tonya Hammonds MD LAB BLOOD ORDERABLE S Final Result [facility] Department [place] [address] * Differential, auto (02/16/2024 11:34 AM PROFESSOR OF EDUCATION) Neutrophil abs 5.1 1.5 - 6.5 K/cumm Imm gran abs 0.1 0.0 - 0.1 K/cumm [facility] Lymphocyte abs 2.0 0.8 - 3.3 K/cumm [facility] Monocyte abs 0.6 0.2 - 0.8 K/cumm [facility] Eosinophil abs 0.1 0.0 - 0.5 K/cumm [facility] Basophil abs 0.0 0.0 - 0.1 K/cumm [facility] Neutrophil pct 64.7 % [facility] Comment: Interpretive Data Percent cell count reference ranges are not reported, since discordance with absolute values may lead to misinterpretation of CBC data. Current Interpretive Data was last revised on 2017. Imm gran pct 0.6 % [facility] Comment: Interpretive Data Percent cell count reference ranges are not reported, since discordance with absolute values may lead to misinterpretation of CBC data. Current Interpretive Data was last revised on 2017. Lymphocyte pct 25.3 % [facility] Comment: Interpretive Data Percent cell count reference ranges are not reported, since discordance with absolute values may lead to misinterpretation of CBC data. Current Interpretive Data was last revised on 2017. Monocyte pct 7.3 % [facility] Comment: Interpretive Data Percent cell count reference ranges are not reported, since discordance with absolute values may lead to misinterpretation of CBC data. Current Interpretive Data was last revised on 2017. Eosinophil pct 1.8 % [facility] Comment: Interpretive Data Percent cell count reference ranges are not reported, since discordance with absolute values may lead to misinterpretation of CBC data. Current Interpretive Data was last revised on 2017. Basophil pct 0.3 % [facility] Comment: Interpretive Data Percent cell count reference ranges are not reported, since discordance with absolute values may lead to misinterpretation of CBC data. Current Interpretive Data was last revised on 2017. Blood 02/16/2024 11:3 4 AM PROFESSOR OF EDUCATION 02/16/2024 11:45 AM PROFESSOR OF EDUCATION us Tonya Hammonds MD LAB BLOOD ORDERABLE S Final Result [facility] Department [place] [address] * HIV 1/2 Antibody plus p24 Antigen Blood (02/16/2024 11:34 AM PROFESSOR OF EDUCATION) [facility] HIV 1/2 ab + p24 ag Nonreactive Nonreactive Comment:Nonreactive for HIV- 1 antigen and HIV-1/HIV-2 antibodies. No laboratory evidence of HIV infection. If acute HIV infection is suspected, consider testing for HIV-1 RNA. Current interpretive data was last revised on 21. Blood 02/16/2024 11:3 4 AM PROFESSOR OF EDUCATION 02/16/2024 11:45 AM PROFESSOR OF EDUCATION us Tonya Hammonds MD LAB MICROBIOLOGY - GENERAL ORDERABLES Final Result [facility] [place] [address] * (ABNORMAL) CBC with auto differential (02/16/2024 11:34 AM PROFESSOR OF EDUCATION) [facility] WBC 7.8 3.8 - 9.9 K/cumm Hgb 8.6(L) 11.9 - 15.5 g/dL [facility] Hct 28.3(L) 35.6 - 45.5 % [facility] Plt 265 150 - 400 K/cumm [facility] MPV 10.2 9.1 - 12.3 fL [facility] RBC 3.24(L) 3.90 - 5.20 M/cumm [facility] MCV 87.3 81.3 - 96.4 fL [facility] MCH 26.5(L) 27.1 - 33.3 pg [facility] MCHC 30.4(L) 32.3 - 35.7 g/dL [facility] RDW CV 14.9 11.1 - 14.9 % [facility] RDW SD 48.1 35.7 - 48.1 fL [facility] NRBC abs 0.00 0.00 - 0.01 K/cumm [facility] Blood 02/16/2024 11:3 4 AM PROFESSOR OF EDUCATION 02/16/2024 11:45 AM PROFESSOR OF EDUCATION Tonya Hammonds MD LAB BLOOD ORDERABLE S Final Result Performing Organization Address City/[facility] Co de Phone Number [facility] [place] [address] * Hepatitis C antibody Blood (02/16/2024 11:34 AM PROFESSOR OF EDUCATION) Pathologist [facility] Hep C Ab Nonreactive Nonreactive Comment:Antibodies to HCV no t detected. Does NOT exclude the possibility of recent exposure to HCV. Current interpretive data was last revised on 21 Blood 02/16/2024 11:3 4 AM PROFESSOR OF EDUCATION 02/16/2024 11:45 AM PROFESSOR OF EDUCATION Tonya Hammonds MD LAB MICROBIOLOGY - GENERAL ORDERABLES Final Result Performing Organization Address [facility] Co de Phone Number [facility] [place] [address] * Hepatitis B core antibody, total Blood (02/16/2024 11:34 AM PROFESSOR OF EDUCATION) Pathologist [facility] Hep B core IgG/IgM Nonreactive Nonreactive Blood 02/16/2024 11:3 4 AM PROFESSOR OF EDUCATION 02/16/2024 11:45 AM PROFESSOR OF EDUCATION Tonya Hammonds MD LAB MICROBIOLOGY - GENERAL ORDERABLES Final Result Performing Organization Address [facility] Co de Phone Number [facility] [place] [address] * Hepatitis B surface antibody (immune status) Blood (02/16/2024 11:34 AM PROFESSOR OF EDUCATION) Pathologist [facility] HBsAb (immune status) Reactive Comment:This result is consi stent with immunity to Hepatitis B Virus when used in the setting of routine screening. Current interpretive data was last revised on 21 HBsAb (immune status) index 221.0 mIUnits/m L [facility] Blood 02/16/2024 11:3 4 AM PROFESSOR OF EDUCATION 02/16/2024 11:45 AM PROFESSOR OF EDUCATION Tonya Hammonds MD LAB MICROBIOLOGY - GENERAL ORDERABLES Final Result Performing Organization Address [facility] de Phone Number [facility] [place] [address] * Hepatitis B Surface Antigen Blood (02/16/2024 11:34 AM PROFESSOR OF EDUCATION) HepBsAg Nonreactive Nonreactive Blood 02/16/2024 11:3 4 AM PROFESSOR OF EDUCATION 02/16/2024 11:45 AM PROFESSOR OF EDUCATION Tonya Hammonds MD LAB MICROBIOLOGY - GENERAL ORDERABLES Final Result Performing Organization Address [facility] de Phone Number [facility] [place] [address] * (ABNORMAL) Phosphorus (02/16/2024 11:34 AM PROFESSOR OF EDUCATION) Pathologist [facility] Phosphorus, pl 5.6(H) 2.3 - 4.5 mg/dL Blood 02/16/2024 11:3 4 AM PROFESSOR OF EDUCATION 02/16/2024 11:45 AM PROFESSOR OF EDUCATION Tonya Hammonds MD LAB BLOOD ORDERABLE S Final Result Performing Organization Address [facility] [place] [address] * (ABNORMAL) PTH (02/16/2024 11:34 AM PROFESSOR OF EDUCATION) PTH 335(H) 15 - 65 pg/mL Blood 02/16/2024 11:3 4 AM PROFESSOR OF EDUCATION 02/16/2024 11:45 AM PROFESSOR OF EDUCATION Tonya Hammonds MD LAB BLOOD ORDERABLE S Final Result Performing Organization Address City/[facility]/ZIP Co de Phone Number [facility] [place] [address] * (ABNORMAL) Hemoglobin A1c (02/16/2024 11:34 AM PROFESSOR OF EDUCATION) Hgb A1C 6.2(H) 4.0 - 5.6 % Estimated Average Glucose 131 mg/dL [facility] Comment: The ADA recommends reporting an estimated Average Glucose (eAG) with all Hemoglobin A1c results using the equation derived from a study of 507 normal and diabetic adults. Minority populations were underrepresented and children were not included. (Diabetes Care 2020; 43(S1): S66-S76). The eAG is not equivalent to a fasting glucose. Blood 02/16/2024 11:3 4 AM PROFESSOR OF EDUCATION 02/16/2024 11:45 AM PROFESSOR OF EDUCATION Tonya Hammonds MD LAB BLOOD ORDERABLE S Final Result Performing Organization Address City/[facility] Co de Phone Number [facility] [place] [address] * (ABNORMAL) Comprehensive metabolic panel (02/16/2024 11:34 AM PROFESSOR OF EDUCATION) Sodium 140 135 - 145 mmol/L Potassium, pl 4.4 3.3 - 4.9 mmol/L [facility] Chloride 102 97 - 110 mmol/L [facility] CO2 28 22 - 32 mmol/L [facility] Anion gap 10 2 - 15 mmol/L [facility] BUN 46(H) 6 - 25 mg/dL [facility] Creatinine 10.77(H) 0.60 - 1.10 mg/dL [facility] Glucose 223(H) 70 - 199 mg/dL [facility] Comment: Interpretive Data Fasting glucose [...] Calcium 8.8 8.5 - 10.3 mg/dL [facility] Bilirubin, total 0.2 0.1 - 1.2 mg/dL [facility] Protein, pl 6.8 6.5 - 8.5 g/dL [facility] Albumin 3.1(L) 3.5 - 5.0 g/dL [facility] Alk phos 233(H) 40 - 130 Units/L [facility] ALT 57(H) 7 - 45 Units/L [facility] AST 50(H) 10 - 45 Units/L [facility] Blood 02/16/2024 11:3 4 AM PROFESSOR OF EDUCATION 02/16/2024 11:45 AM PROFESSOR OF EDUCATION us Tonya Hammonds MD LAB BLOOD ORDERABLE S Final Result [facility] Department [place] [address] * Colonoscopy (07/21/2023 10:23 AM CDT) Anatomical Region Laterality Modality Other Narrative Procedure Note Early, Haritha Coronado MD - 07/21/2023 10:23 AM CDT [facility] Patient Name: Bakari Smith Procedure Date: 07/21/2023 10:23 AM Date of : 1980 Admit Type: Outpatient Age: 43 Gender: Female Attending MD: Haritha Stover M.D. Room: [facility] ENDOSCOPY ROOM 02 Note Status: Finalized [...] The scope was passed under direct vision.The [id number] Colonoscope was introducedthrough the anus and advanced to the the cecum, identifiedby appendiceal orifice and ileocecal valve. The colonoscopy was performed without difficulty. The patient tolerated the procedure well. The qualityof the bowel preparation was evaluated using the BBPS ([place] Bowel Preparation Scale) with scores of:Right Colon [...] On: 07/21/2023 10:23 AM Recognized by the [employer] for promoting quality in endoscopy us Haritha Stover MD ENDOSCOPY PROCEDURES Final Res ult * HM MAMMOGRAPHY (06/04/2021) Impressions Rashida Schneider - 06/04/2021 IMPRESSION: 1. Benign mammogram. READ BY: NINO BAJWA MD 06/05/2021 Historical Provider HEALTH MAINTENANCE Final Result * Lipid panel (04/30/2021 12:22 PM PROFESSOR OF EDUCATION) Cholesterol 139 30 - 199 mg/dL [facility] Comment: Interpretive Data Ages < or [...] revised on 2017. Triglycerides 64 <=149 mg/dL [facility] Comment: Interpretive Data Ages < [...] revised on 2017. HDL 70 >=40 mg/dL [facility] Comment: Interpretive Data Ages < [...] on 2017. LDL, calculated 56 <=129 mg/dL [facility] Comment: Interpretive Data Ages < [...] revised on 2017. Non-HDL Cholesterol 69 mg/dL [facility] Comment: Interpretive Data Ages < [...] [facility] Blood 04/30/2021 12:2 2 PM PROFESSOR OF EDUCATION 04/30/2021 1:03 PM PROFESSOR OF EDUCATION us Ren Pelayo MD LAB BLOOD ORDERABLES Final Result [facility] Department [place] [address] from Last 3 Months or Most Recently Relevant to Health Maintenance Insurance [employer] [facility] MEDICARE MEDICARE Member Subscriber Plan / Payer (Ef fective 2021-Present) Name:Bakari Smith Member ID:[id number] Relation to Subscriber:Self Name:Bakari Smith Subscriber ID:[id number] Payer ID:[id number] Group ID:Not on file Type:MEDICARE TRADITIONAL Address: [place] [id number] MEDICARE [facility] MEDICARE SUPPLEMENT MEDICARE [facility] MEDICARE SUPPLEMENT Advance Directives For more information, please contact: [phone] * Full Code (Latest Code Status on File) Date Activated Date Inactivated Comments 07/21/2023 9:59 AM 07/21/2023 3:56 PM Care Teams Complex Care Nurse Practitioner Relationship Specialty Start Date End Date No, Physician PCP - General 02/16/24 Almita Rizzo, RN [address] [facility] [address] [place] [address] Aquatic Scientist 04/04/21 Beth Fernandez MD [address] [facility] [address] [place] [address] Referring Physician Nephrology 04/04/21 Maday Oviedo MD [address] [facility] [place] [address] Neurology 09/12/22 Tomasz Scott DO [address] [place] [address] Sports Recruiter Cardiology 09/16/22 Meir Nazario MD [address] [place] [address] Obstetrics and Gynecology 04/11/24
--- OUTSIDE RECORDS SUMMARY | 2024-05-05 17:11 | XMS_ITS ---
Author Organization [facility] Address [address] [place] [address] Care Team Providers Care Sailing Instructor Name Role Phone Almita Rizzo RN Unavailable [phone] Beth Fernandez MD Unavailable [phone] aMday Oviedo MD Unavailable [phone] Tomasz Scott DO Unavailable [phone], Physician Primary Care Provider [phone] Meir Nazario MD Unavailable [phone] Transplant Episode Kidney Candidate [facility] ([place], [place]) [facility] Center waitlisted on 09/10/2021 Marked as Active on 04/02/2023 Reason: Listed in [facility] Kidney CoordinatorAlmita Rizzo RN Fax: N/A Email: N/A Scores Score Value Updated Exceptions/Reas ons CPRA Not available EPTS (Calc) 53 05/05/2024 [place] 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 Mellitus - Type II Care Team Name Role Phone Fax Email Almita Rizzo RN Kidney Coordinator [phone] N/A N/A Beth Fernandez MD Referring Physician [phone] N/A Hien Mireles Bladder Trimmer [phone] N/A N/A Events Pre-Transplant Referred: 02/07/2021 Evaluation began: 04/04/2021 Committee: 09/09/2021 [facility] qualified: 01/21/2021 Center waitlisted: 09/10/2021 Dialysis History Dialysis History Start End Type Comments Center 04/23/2021 Peritoneal [facility] 01/21/2021 04/23/2021 Hemo M/W/F [facility] Information Center Phone Fax Address [facility] [phone] [address] [facility] [phone] [address] [place] [phone]
[2024-05-05 18:14] LABS: Basophils Absolute Auto 0.1 K/mm3 (0.0-0.1); Eosinophils Absolute Auto 0.3 K/mm3 (0-0.3); Eosinophils Percent Auto 4.2 % (0-4.4); Hematocrit 34.4 % (37.0-47.0); Hemoglobin 10.6 g/dL (12.0-15.0); Immature Granulocyte Absolute 0.02 K/mm3 (0.00-0.031); Immature Granulocyte Percent A 0.3 % (0-0.5); Lymphocytes Absolute Auto 2.79 K/mm3 (0.9-3.2); Lymphocytes Percent Auto 35.9 % (18.3-44.2); Mean Corpuscular HGB Conc 30.8 g/dl (32-36); Mean Corpuscular Hemoglobin 26.1 pg (26-34); Mean Corpuscular Volume 84.7 fl (80-100); Mean Platelet Volume 9.7 fl (7.4-10.4); Monocytes Absolute Auto 0.6 K/mm3 (0.1-0.6); Monocytes Percent Auto 8.1 % (2.6-8.5); Neutrophils Absolute Auto 3.9 K/mm3 (1.3-6.7); Neutrophils Percent Auto 50.5 % (45.5-73.1); Platelet Count Result 280 k/mm3 (150-375); Red Blood Count 4.06 M/mm3 (4.2-5.4); Red Cell Distribution Width 16.7 % (11.5-14.5); White Blood Count 7.8 K/mm3 (4.5-10.0)
[2024-05-05 18:24] LABS: Alanine Aminotransferase 55 U/L (6-35); Albumin Level 3.5 g/dL (3.5-5.1); Alkaline Phosphatase 309 U/L (38-126); Anion Gap 12 mmol/L (4-12); Aspartate Amino Transferase 52 U/L (14-36); Bilirubin,Total 0.3 mg/dL (0.2-1.3); Blood Urea Nitrogen 54 mg/dL (7-17); Carbon Dioxide 24 mmol/L (22-30); Chloride 101 mmol/L (98-107); Estimated Glomerular Filt Rate 3; Glucose 124 mg/dL (65-110); Potassium 3.6 mmol/L (3.4-5.0); Sodium 137 mmol/L (137-145)
[2024-05-05] MEDS: MORPHINE SULFATE INJ (*CRX) 10 MG/ML AMP 6 MG IM (19:52)
--- NOTE | 2024-05-05 19:57 | PC.NURSE ---
Pt received IM pain meds d/t not having IV access. 4 unsuccessful attempts by 2 RNs and 1 unsuccessful attempt using US. Pt only has left arm available d/t right arm having dialysis shunt.
[2024-05-05 21:12] LABS: Add Urine Microscopic? YES; Appearance Urine Clear (Clear); Bacteria Urine None Seen /hpf; Bilirubin Urine Negative (Negative); Blood Urine Trace (Negative); Color Urine Yellow (Yellow); Glucose Urine UA 2+ mg/dL (Negative); Ketones Urine Negative (Negative); Leukocyte Esterase Ur Negative LEU/UL (Negative); Nitrate Urine Negative (Negative); Non Pathogenic Casts 0-2; Protein Urine 3+ mg/dL (Negative); RBC Urine 0-2 /hpf (0-2); Squamous Epithelial Cell Urine Occasional /hpf (Few); Urobilinogen Urine 0.2 mg/dL (<2.0); WBC Urine 0-5 /hpf (0-3); pH Urine 7.5 (5.0-9.0)
--- NOTE | 2024-05-05 22:28 | PC.NURSE ---
Pt to CT at this time.
[2024-05-05] MEDS: methocarbamoL 750 MG TABLET 1500 MG PO (23:05)
[2024-05-05] MEDS: ACETAMINOPHEN 500 MG TABLET 1000 MG PO (23:05)
[2024-05-05] MEDS: HYDROmorphone HCL INJ (*CRX) 1 MG/ML SYR 0.5 MG IV PUSH (23:06)
[2024-05-05 23:36] VITALS: BP 131/79; PULSE 83; RESP 19; O2SAT 99
== END 2024-05-06 00:21 | disposition home or self-care (01) ==
PROVIDERS: Emergency Provider Emergency Medicine; PCP Nurse Practitioner Family
DX: S29.9XXA Unspecified injury of thorax, initial encounter (principal); E11.22 Type 2 diabetes mellitus with diabetic chronic kidney disease; N18.6 End stage renal disease; I12.0 Hypertensive chronic kidney disease with stage 5 chronic kidney disease or end stage renal disease; D63.1 Anemia in chronic kidney disease; Z99.2 Dependence on renal dialysis; E11.42 Type 2 diabetes mellitus with diabetic polyneuropathy; E66.01 Morbid (severe) obesity due to excess calories; K21.9 Gastro-esophageal reflux disease without esophagitis; K58.9 Irritable bowel syndrome, unspecified; Z87.01 Personal history of pneumonia (recurrent); Z90.49 Acquired absence of other specified parts of digestive tract; Z90.79 Acquired absence of other genital organ(s); Z77.22 Contact with and (suspected) exposure to environmental tobacco smoke (acute) (chronic); W10.9XXA Fall (on) (from) unspecified stairs and steps, initial encounter; Z79.82 Long term (current) use of aspirin; Z79.4 Long term (current) use of insulin; M47.816 Spondylosis without myelopathy or radiculopathy, lumbar region; M47.814 Spondylosis without myelopathy or radiculopathy, thoracic region; R18.8 Other ascites; R93.3 Abnormal findings on diagnostic imaging of other parts of digestive tract; R93.422 Abnormal radiologic findings on diagnostic imaging of left kidney
CPT/HCPCS: 36415; 71046; 71100; 72128; 72131; 74177; 80053; 81001; 85025; 96372; 96374; 99284; A9270; J1171; J2270; Q9967

== ENCOUNTER 2024-06-18 12:40 | Inpatient (IN) | payer MEDICARE, MEDICAID, SELFPAY ==
[2024-06-18] VITALS (7 sets, daily range): BP systolic 145–219; BP diastolic 75–93; PULSE 74–82; RESP 16–18; TEMP 36.6–37.1; O2SAT 98–100; BMI 38.5
--- NOTE | ~2024-06-18 | CT_ITS ---
CT abdomen pelvis wo con Ordering provider: Leobardo Parker MD History: 44 years Female with . constipation, rectal pressure . Comparison: May 05, 2024 Technique: CT abdomen and pelvis without IV and without oral contrast. Automated exposure control and iterative reconstruction technique were employed. The dose-length product was 484.27 mGy-cm. Findings: VISUALIZED LOWER CHEST: Dependent atelectatic changes. UPPER ABDOMINAL ORGANS: Liver: Normal. Gallbladder: Status post cholecystectomy. Spleen: Normal. Stomach/duodenum: Normal. Pancreas: Normal. Adrenals: Normal. Kidneys: Slightly atrophic kidneys. PELVIC ORGANS: The bladder is underfilled with thickened wall. BOWEL AND MESENTERY: Colon: No evidence of diverticulitis.. The appendix is not demonstrated. Small Bowel: Normal. No obstruction. Peritoneum/mesentery: No free air moderate ascites seen in the pelvis and around the liver. Dialysis catheter is seen in the pelvis (attending on the anterior abdominal wall. No mesenteric lymphadenopat hy. Edema in the mesentery is noted. Evaluation for inflammatory changes is advised. RETROPERITONEUM: Mild atheromatous disease of the abdominal aorta. No retroperitoneal lymphadenopat hy. Small retroperitoneal lymph nodes are noted. MUSCULOSKELETAL: Superficial soft tissues: Edema in the subcutaneous tissues is noted. The superficial soft tissues ar e normal. Bones: Normal spine. IMPRESSION: 1. No evidence of appendicitis, diverticulitis or intestinal obstruction. 2. Moderate ascites. 3. Atrophic kidneys. Dialysis catheter seen in the pelvis. 4. Edematous mesentery seen anteriorly. Clinical correlation advised Reviewed, dictated and finalized at location A.
--- OUTSIDE RECORDS SUMMARY | 2024-06-18 12:43 | XMS_ITS | Encounter Summary ---
Author Organization [facility] Health Address [address] [facility] [place] [address] Care Team Providers Care Bushing Press Operator Name Role Phone Jessie Dickson PLACEMENT ASSISTANT-BUSINESS MANAGEMENT CONSULTANT Primary Care Pro vider Encounter Details Date Type Department Care Team (Late st Contact Info) Description 05/25/2018 Ophth Exam [facility] [address] [place] [address] Regina Fritz MD [address] [place] [address] Social History Tobacco Use Types Packs/Day Years Used Date Smoking Tobacco: Never Smokeless Tobacco: Never Alcohol Use Standard Drinks/Week Comments No 0 (1 standard drink = 0.6 oz pur e alcohol) socially. Comments No Sex and Gender Information Value Date Recorded Sex Assigned at Not on file Legal Sex Female 5:16 PM LEADITE MAN Gender Identity Not on file Sexual Orientation Not on file documented as of this encounter Functional Status * Is person deaf or have serious hearing difficulty? Answer Date of Assessment Author No 05/25/2018 2:01 AM Leif White RN * Is person blind or have serious difficulty seeing? Answer Date of Assessment Author Yes 05/25/2018 2:01 AM Leif White RN * Does person have serious difficulty walking/climbing stairs? Answer Date of Assessment Author No 05/25/2018 2:01 AM Leif White RN * Does person have difficulty dressing/bathing? Answer Date of Assessment Author No 05/25/2018 2:01 AM Leif White RN * Does person have difficulty doing errands alone? Answer Date of Assessment Author No 05/25/2018 2:01 AM Leif White RN documented as of this encounter Mental Status * Does person have difficulty concentrating/remembering/making decisions? Answer Entry Date Author No 05/25/2018 2:01 AM Leif White RN documented in this encounter Plan of Treatment Not on file documented as of this encounter Visit Diagnoses Not on filedocumented in this encounter Care Teams Bushing Press Operator Relationship Specialty Start Date End Date Jessie Dickson APRN-JANET [address] [address] PCP - General 06/30/14 documented as of this encounter
--- OUTSIDE RECORDS SUMMARY | 2024-06-18 12:43 | XMS_ITS | Clinical Summary ---
Author Organization [facility] [employer] Address [address] [place] [address] Care Team Providers Care Web Production Manager Name Role Phone Jessie Dickson DESTINATION SPECIALIST-DESTATICIZER FEEDER Primary Care Pro vider Source Comments [facility],non-owned Affiliates and Associated Physician Practices is amultiple site organization consisting of ambulatory clinics and hospital sitesin [place], [place], [place] and [place]. This disclosure is being madepursuant to the Care Everywhere program and may not contain all information available regarding this patient. Last updated 17.[facility] [employer] Allergies Active Allergy Reactions Criticality Noted Date Comments Metronidazole Skin Reactions Medium 04/21/2017 Other reaction(s): Hives Omeprazole Skin Reactions Medium 04/21/2017 Other reaction(s): Hives Medications * Be aware that medications may not be up to date on this document. Alwaysverify current medications with the patient. FREESTYLE LANCETS MISC Use BID. 100 3 11/07/19 17 Active Blood Glucose Monitoring Suppl (FREESTYLE FREEDOM LITE) W/DEVICE KIT Use 1 kit BID. 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, with long-term current use of insulin, unspecified laterality (HCC) Use 4 times daily - before meals & nightly 200 Each 11 06/10/19 19 Active ergocalciferol (DRISDOL) 75298 units capsule Take 1 capsule by mouth every 7 days 4 capsule 11 07/27/19 19 Active BASAGLAR KWIKPEN (BASAGLAR) penIndications: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, with long-term current use of insulin, unspecified laterality (HCC) Inject 20 Units subcutaneously at bedtime 5 Pen 3 08/03/19 19 Active Additional Information Patient not taking.Reported on 02/05/2022 amLODIPine (NORVASC) 10 MG tablet Take 10 mg by mouth once daily 0 10/09/19 19 Active hydroxychloroquine (PLAQUENIL) 200 MG tablet Take 1 tablet by mouth once daily 90 tablet 3 10/20/19 19 Active Additional Information Patient not taking.Reported on 03/08/2019 blood glucose test strip Use 1 strip 3 times daily Dispense generic test strip - check blood sugar twice a day 100 strip 3 11/02/19 19 Active insulin isophane & Reg, human, 70/30 (HUMULIN;NOVOLIN 70/30) pen Inject subcutaneously 3 times daily Sliding scale TID Active Insulin Glargine (LANTUS SC) Inject 20 Units subcutaneously at bedtime Active hydrALAZINE (APRESOLINE) 100 MG tablet Take 1 (one) tablet by mouth 2 times daily 03/17/19 22 Active lisinopril (PRINIVIL; ZESTRIL) 20 MG tablet Take 1 (one) tablet by mouth 2 times daily 03/17/19 22 Active labetalol (Normodyne; Trandate) 200 MG tablet Take 1 (one) tablet by mouth every 12 hours Active ALPRAZolam (Xanax) 0.25 MG tablet Take 1 (one) tablet by mouth as needed for Anxiety (Take 1 the morning of procedure) 2 tablet 01/22/20 22 Active HYDROcodone-acetami nophen (Pike) 5-325 MG tablet Take 1 (one) tablet by mouth every 6 hours as needed for Pain 12 tablet 02/06/20 22 Active Active Problems Problem Noted Date Diagnosed [...] 0.6 oz pur e alcohol) socially. Comments Unknown Sex and Gender Information Value Date Recorded Sex Assigned at Not on file Legal Sex Female 5:16 PM SENIOR COMMISSARY AGENT Gender Identity Not on file Sexual Orientation Not on file Last Filed Vital Signs Vital Sign Reading Time Taken Comments Blood Pressure 145/85 02/05/2022 12:[address] irizarry aware; ok to d/cv Pulse 74 02/05/2022 11:55 AM SENIOR COMMISSARY AGENT Temperature 36.8 C (98.2 F) 09/13/2019 8:22 AM CDT Respiratory Rate 12 02/05/2022 11:5 0 AM SENIOR COMMISSARY AGENT Oxygen Saturation 100% 02/05/2022 11: 55 AM SENIOR COMMISSARY AGENT Inhaled Oxygen Concentration - - Weight 108.9 kg (240 lb) 09/13/2019 8:2 2 AM CDT Height 160 cm (5' 3) 09/13/2019 8:22 AM CDT Body Mass Index 42.51 09/13/2019 8:22 AM CDT Plan of Treatment Health Maintenance Due Date Last Done Comments COLOGADARSH (AGES 45-75) - COLON CA SCREENING 1978 [...] Additional history exists COVID-19 VACCINE ( - 2023- season) 2023 DEPRESSION SCREENING 02/24/2024 INFLUENZA VACCINE (Season Ended) 2024 ZOSTER VACCINE (1 of 2) 2028 HIV [...] long-term current use of insulin, unspecified laterality HEPATITIS C AB SCREEN RFLX NAAT QUANT Routine 05/28/2018 12:13 PM CDT HIV-1 HIV-2 ANTIGEN/ANTIBODY STAT 05/24/2018 5:08 PM CDT from Last 3 Months or Most Recently Relevant to Health Maintenance Results * HEMOGLOBIN A1C - POINT OF CARE (AMB) [facility] (11/01/2018 10:11 AM CDT) Hemoglobin A1c POCT 8.5% BLOOD SPECIMEN / Unknown 11/01/2018 10:11 AM CDT us Tessie Pritchard DESTINATION SPECIALIST-DESTATICIZER FEEDER LAB - POINT OF CARE O RDERABLES Final Result * HEPATITIS C AB SCREEN RFLX NAAT QUANT (05/28/2018 12:13 PM CDT) Pathologist [facility] Hepatitis C Antibody Non-react javier Non-reac tive 05/28/2018 1:18 PM CDT [facility] Comment: Hepatitis C Antibody screen [...] CDT Es Thornton MD LAB - CHEMISTRY ORDERABLES Final Result [facility] [address] [place] [address] * HIV-1 HIV-2 ANTIGEN/ANTIBODY (05/24/2018 5:08 PM CDT) HIV Antigen/Antibod y 1 & 2 Non-reacti ve Non-react javier 05/24/2018 5:54 PM CDT [facility] Comment: Neither HIV-1 p24 Antigen nor HIV-1/HIV-2 Antibodies are detected. Blood BLOOD SPECIMEN / Unknown Venipuncture / Unknown 05/24/2018 5:08 PM CDT 05/24/2018 5:16 PM CDT Namita Raymond MD LAB - HEMATOLOGY ORDERABLES Fi nal Result [facility] [address] [place] [address], [facility] [phone] from Last 3 Months or Most Recently Relevant to Health Maintenance Insurance MEDICARE MEDICAID - [place] [facility] MEDICAID [place] - [place] MEDICAID - OUT OF STATE Advance Directives * Full Code (Latest Code Status on File) Date Activated Date Inactivated Comments 05/25/2018 12:57 AM 05/28/2018 5:22 PM * Full Code Date Activated Date Inactivated Comments 05/24/2018 6:24 PM 05/25/2018 12:57 AM Care Teams Web Production Manager Relationship Specialty Start Date End Date Jessie Dickson APRN-JANET [facility] [phone] PCP - General 06/30/14
--- OUTSIDE RECORDS SUMMARY | 2024-06-18 12:43 | XMS_ITS | Clinical Summary ---
Author Organization [facility] Address [address] [place] [id number] Phone Care Team Providers Care Antenna Rigger Name Role Phone Jessie Dickson MD Primary Care Provider [phone] Allergies Active Allergy Reactions Criticality Noted Date [...] reaction(s): Skin Reactions Other reaction(s): Hives Medications Glucose Blood (BLOOD GLUCOSE TEST) strip 1 strip. 8 Active insulin aspart (NovoLOG) 100 UNIT/ML injection 150-200=2 unit;201-250=4 units;251-300=6 units;301-350=8 units;351-400=1 0 units;>400=12 units Reasons: Type 2 Diabetes 9 Active Lancets (FREESTYLE) lancets 7 Active liraglutide (VICTOZA) 18 MG/3ML injection Inject 0.6 mg under the skin. 9 Active metFORMIN (GLUCOPHAGE) 500 MG tablet TK 1 T PO BID TK WF 0 9 Active Vitamins/Mineral s tablet Take 1 tablet by mouth. Active Polyvinyl Alcohol 1.4 % solution Administer 1 drop into affected eye(s) 3 times daily. 9 Active ergocalciferol (VITAMIN D2) 42904 units capsule TK 1 C PO Q 7 DAYS 11 9 Active hydrALAZINE (APRESOLINE) 25 MG tablet TK 1 T PO BID 9 9 Active hydroxychloroqui ne (PLAQUENIL) 200 MG tablet TK 1 T PO QD 3 9 Active BASAGLAR KWIKPEN 100 UNIT/ML injection INJECT 20 UNITS UNDER THE SKIN QHS 3 9 Active Insulin Lispro, 1 Unit Dial, (HumaLOG KWIKPEN) 100 UNIT/ML solution pen-injector < 150 take 5 units / > 150 unit 7 units / > 200 10 units with meals 9 Active amLODIPine (NORVASC) 10 MG tablet TK 1 T PO QD 30 tablet 11 0 Active HYDROcodone-acet aminophen (NORCO) 5-325 MG per tablet TK 1 T PO Q 6 H PRF PAIN 0 Active naproxen (NAPROSYN) 500 MG tablet TK 1 T PO BID PRF PAIN 0 Active insulin NPH-insulin regular (NovoLIN) (70-30) 100 UNIT/ML injection Inject under the skin Active Blood Glucose Monitoring Suppl ([employer] Verio Flex System) w/Device kit USE DIRECTED FOUR TIMES DAILY FOR BLOOD SUGAR TESTING 1 Active carvedilol (COREG) 12.5 MG tablet Take 12.5 mg by mouth every 12 (twelve) hours 1 Active BD Pen Needle Alyson 2nd Gen 32G X 4 MM misc 4 (four) times a day as directed 1 Active Insulin Syringe 31G X 5/16 0.5 ML misc USE DIRECTED WITH INSULIN FOUR TIMES DAILY 1 Active sodium bicarbonate 650 MG tablet Take 1 tablet (650 mg total) by mouth 2 (two) times a day 60 tablet 6 1 Active rOPINIRole (REQUIP) 0.25 MG tablet TAKE 1 TABLET BY MOUTH AT BEDTIME 30 tablet 1 2 Active Active Problems Problem Noted Date Diagnosed Date 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 Hypertensive disorder 05/31/2018 Acute retrobulbar neuritis 05/24/2018 Blurring of visual image 05/24/2018 Visual disturbance 06/12/2015 Diabetic retinopathy associa graeme with type 2 diabetes mellitus 06/12/2015 Hyperlipidemia 06/29/2014 Primary osteoarthritis of left knee 06/29/2014 Vitamin D deficiency 09/17/2012 Type 2 diabetes mellitus 06/21/2010 Immunizations Immunization Administration Dates Next Due Pneumococcal Conjugate 03/03/2018 [...] of Binge Drinking Not on file 10/2018 Comments Unknown Sex and Gender Information Value Date Recorded Sex Assigned at Not on file Legal Sex Female 8:22 AM MDT Gender Identity Not on file Sexual Orientation [...] 3:08 PM CDT Height 160 cm (5' 3) 07/30/2020 3:08 PM CDT Body Mass Index 42.16 07/30/2020 3:08 PM CDT Plan of Treatment Health Maintenance Due Date Last Done Comments Influenza Vaccine (Season Ended) 2024 Insurance MEDICAID - [place] Care Teams Antenna Rigger Relationship Specialty Start Date End Date Jessie Dickson MD [address] [place] [id number] PCP - General 05/31/18
--- OUTSIDE RECORDS SUMMARY | 2024-06-18 12:43 | XMS_ITS | Data Portability ---
Author Organization [facility] Address [address] [facility] [place] [address] Care Team Providers Care Avionics Repair Technician Name Role Phone DEYVI ROSALES OTHER JESSIE CROCKETT Software Trainer [facility] Maintenance Advisor BETH MARTE Coat Fitter [employer] Maintenance Advisor Assessment No assessment recorded. Plan of Treatment Reminders Order Date Submit Date Provider Last Modified By Organization Details Last Modified Time Details Appointments None recorded. Lab HbA1c (hemoglobin A1c), blood 2023 024 macho In-Office Order, Internal Use Only DO Not Attach Compendium DO Not Attach Compendium, Do Not Delete/merge, [id number] 4 12:47:19 glucose, fingerstick , blood 2023 024 macho In-Office Order, Internal Use Only DO Not Attach Compendium DO Not Attach Compendium, Do Not Delete/merge, [id number] 4 12:47:21 CMP, serum or plasma 2023 024 [facility], [address] [place], [place] [address], Suite [facility], [place], [address], 4 23:07:49 albumin/cre atinine, mass ratio, urine 2023 024 [facility], [facility], [address], [place], [address], 4 10:15:48 TSH, ultra-sensi tive, serum 2023 024 [facility], [address] [facility], [address], [place], [address], 4 10:15:48 CBC 2023 024 [facility], [address] [facility] [address], [address], [place], [address], 4 23:07:50 lipid panel, serum 2023 024 [facility], [address] [facility], [address], [place], [address], 4 23:07:48 vitamin D, 25-hydroxy, total, serum 2023 024 [facility], [address] [facility] [address], [address], [place], [address], 4 10:15:50 HbA1c (hemoglobin A1c), blood 2022 023 [email or web address] In-Office Order, Internal Use Only DO Not Attach Compendium DO Not Attach Compendium, Do Not Delete/merge, [id number] 3 15:31:49 glucose, fingerstick , blood 2022 023 [email or web address] In-Office Order, Internal Use Only DO Not Attach Compendium DO Not Attach Compendium, Do Not Delete/merge, [id number] 3 15:31:48 Referral neurologist referral - Head [...] Orders gabapentin 100 mg capsule 2023 024 [facility] #2510, [address] [place], [address], 4 20:08:16 fluticasone propionate 50 mcg/actuati on nasal spray,suspe nsion 2023 024 [facility] #2510, [address] [place], [address], 4 12:47:15 montelukast 10 mg tablet 2023 024 [facility], [address] [place], [address], 4 12:47:16 Kym Allergy 180 mg tablet 2023 024 [facility], [address] [place], [address], 4 12:47:15 Colace 100 mg capsule 2023 024 [facility] #2510, [address] [place], [address], 4 12:47:15 Lantus Solostar U-100 Insulin 100 unit/mL (3 mL) subcutaneou s pen 2023 024 [facility]2510, [address] [place], [address], 4 12:47:15 OneTouch Ultra Test strips 2023 024 [facility]2510, [address] [place], [address], 4 15:31:16 gabapentin 100 mg capsule 2023 024 [facility], [address] [place], [address], 4 12:47:15 Diflucan 150 mg tablet 2023 024 [facility], [address] [place] [address], [address], 4 12:47:15 Colace 100 mg capsule 2022 023 [facility], [address] [place] [address], [address], 3 15:32:12 polyethylen e glycol 3350 17 gram/dose oral powder 2022 023 [facility], [address] [place] [address], [address], 3 20:15:56 fluticasone propionate 50 mcg/actuati on nasal spray,suspe nsion 2022 023 [facility], [address] [place] [address], [address], 3 15:32:14 montelukast 10 mg tablet 2022 023 [facility], [address] [place] [address], [address], 3 15:32:14 Kym Allergy 180 mg tablet 2022 023 [facility], [address] [place] [address], [address], 3 15:32:13 Lantus Solostar U-100 Insulin 100 unit/mL (3 mL) subcutaneou s pen 2022 023 [facility], [address] [place], [address], 3 15:32:15 Admelog SoloStar U-100 Insulin lispro 100 unit/mL subcutaneou s pen 2022 024 [facility], [address] [place], [address], 4 12:43:37 aspirin 81 mg tablet,juan yed release 2022 023 [facility], [address] [place], [address], 3 14:50:06 Lipitor 80 mg tablet 2022 023 [facility], [address] [place], [address], 3 14:56:45 Patient TargetsNo targets recorded. Patient Instructions Encounter Date Encounter Id Patient Instructions Last Modified By Organization Details Last Modified Time 06/11/2022 [id number] A healthy lifest yle: care instructions yarauz [...] dialysis yarauz Not available 06/11/2022 15:17:16 10/06/2022 [id number] allergies: care instructions [email or web address] Not available 10/06/2022 [...] medicine yarauz Not available 10/06/2022 15:08:09 02/03/2023 [id number] influenza (flu) vaccine: care instructions yarauz Not [...] diet see dentist every 6 months see [facility] every 1-2 years vaccine yarauz Not available 02/03/2023 12:29:16 2023 [id number] allergies: care instructions yarauz Not available 2023 [...] medicine yarauz Not available 2023 12:31:18 09/08/2023 [id number] A healthy lifest yle: care instructions [email or web address] Not available 09/08/2023 20:08:14 Consider use of rae, kenyon, peppermint, coriander, fennel and cayenne pepper to stimulate your appetite. Lemon helps with limited taste. Please talk to your providers about being hungry but not having desire to eat. [email or web address] Not available 09/08/2023 20:08:14 Reason for Referral [...] DO Not Attach Compendium, Do Not Delete/merge, [id number] 10/06/2022 14:28:33 10/07/19 23 10/06/2022 gluco se, finge rstic k, blood Blood Glucose: mg/dl 162 Not Available In-Off ice Order Internal Use Only DO Not Attach Compendium DO Not Attach Compendium, Do Not Delete/merge, [id number] 10/06/2022 14:28:35 03/12/19 24 2023 LIPID PANEL cholesterol, total 171 mg/dL 100-[address] [facility] Department [address] [place], [address], 2023 23:07:48 03/12/19 24 2023 LIPID PANEL triglyceride s 78 mg/dL 0-149 Not Available [facility] Department [address] [place], [address], 2023 23:07:48 03/12/19 24 2023 LIPID PANEL HDL cholesterol 70 mg/dL 40-999 Not Available [facility] Department [address] [place], [address], 2023 23:07:48 03/12/19 24 2023 LIPID PANEL VLDL cholesterol dwayne 16 mg/dL 5-40 Not Available [facility] Department [address] [place], [address], 2023 23:07:48 03/12/19 24 2023 LIPID PANEL LDL chol calc (nih) 96 mg/dL 0-99 Not Available [facility] Department [address] [place], [address], 2023 23:07:48 03/12/19 24 2023 COMP. METAB OLIC PANEL (14) glucose 101 mg/dL 70-99 above high normal Not Available [facility] Department [address] [place] [address], [address], 2023 23:07:49 03/12/19 24 2023 COMP. METAB OLIC PANEL (14) BUN 46 mg/dL 6-24 above high normal Not Available [facility] Department [address] [place], [address], 2023 23:07:49 03/12/19 24 2023 COMP. METAB OLIC PANEL (14) creatinine 12.18 mg/dL 0.76-1 .27 panic high RESUL TS VERIF IED AND MCCLENDON D TO DR MAYRA TALLEY ON BY Jesse bazzi, CPT AT 2108 ON 03/12. Not Available [facility] Department [address] [place], [address], 2023 23:07:49 03/12/19 24 2023 COMP. METAB [...] disre tao that value . Not Available [facility] Department [address] [place] [address], [address], 2023 23:07:49 03/12/19 24 2023 COMP. METAB OLIC PANEL (14) BUN/creatini ne ratio 4 9-23 below low normal Not Available [facility] Department [address] [place], [address], 2023 23:07:49 03/12/19 24 2023 COMP. METAB OLIC PANEL (14) sodium 142 mmol/ L 134-[address] [facility] Department [address] [place] [address], [address], 2023 23:07:49 03/12/19 24 2023 COMP. METAB OLIC PANEL (14) potassium 4.6 mmol/ L 3.5-5. [address] [facility] [address] [place] [address], [address], 2023 23:07:49 03/12/19 24 2023 COMP. METAB OLIC PANEL (14) chloride 102 mmol/ L 96-[address] [facility] [address] [place] [address], [address], 2023 23:07:49 03/12/19 24 2023 COMP. METAB OLIC PANEL (14) carbon dioxide, total 26 mmol/ L 20-[address] [facility] [address] [place] [address], [address], 2023 23:07:49 03/12/19 24 2023 COMP. METAB OLIC PANEL (14) calcium 9.6 mg/dL 8.7-[address] [facility] [address] [place] [address], [address], 2023 23:07:49 03/12/19 24 2023 COMP. METAB OLIC PANEL (14) protein, total 7.0 g/dL 6.0-8. [address] [facility] [address] [place] [address], [address], 2023 23:07:49 03/12/19 24 2023 COMP. METAB OLIC PANEL (14) albumin 3.7 g/dL 3.9-4. 9 below low normal Not Available [facility] [address] [place] [address], [address], 2023 23:07:49 03/12/19 24 2023 COMP. METAB OLIC PANEL (14) globulin, total 3.3 g/dL 1.5-4. [address] [facility] [address] [place] [address], [address], 2023 23:07:49 03/12/19 24 2023 COMP. METAB OLIC PANEL (14) A/G ratio 1.0 1.2-2. 2 below low normal Not Available [facility] [address] [place] [address], [address], 2023 23:07:49 03/12/19 24 2023 COMP. METAB OLIC PANEL (14) bilirubin, total 0.2 mg/dL 0.0-1. [address] [facility] [address] [place] [address], [address], 2023 23:07:49 03/12/19 24 2023 COMP. METAB OLIC PANEL (14) alkaline phosphatase 161 IU/L 44-121 above high normal Not Available [facility] [address] [place] [address], [address], 2023 23:07:49 03/12/19 24 2023 COMP. METAB OLIC PANEL (14) AST (SGOT) 17 IU/L 0-40 Not Available [facility] Department [address] [place], [address], 2023 23:07:49 03/12/19 24 2023 COMP. METAB OLIC PANEL (14) ALT (SGPT) 15 IU/L 0-32 Not Available [facility] Department [address] [place], [address], 2023 23:07:49 03/12/19 24 2023 CBC, NO DIFFE RENTI AL/PL ATELE T WBC 9.4 x10e3 /uL 3.4-[address] [facility] Department [address] [place], [address], 2023 23:07:50 03/12/19 24 2023 CBC, NO DIFFE RENTI AL/PL ATELE T RBC 4.11 x10e6 /uL 3.77-[address] [facility] Department [address] [place], [address], 2023 23:07:50 03/12/19 24 2023 CBC, NO DIFFE RENTI AL/PL ATELE T hemoglobin 10.9 g/dL 11.1-1 5.9 below low normal Not Available [facility] [address] [place], [address], 2023 23:07:50 03/12/19 24 2023 CBC, NO DIFFE RENTI AL/PL ATELE T hematocrit 36.5 % 34.0-[address] [facility] [address] [place], [address], 2023 23:07:50 03/12/19 24 2023 CBC, NO DIFFE RENTI AL/PL ATELE T MCV 89 fL 79-[address] [facility] [address] [place], [address], 2023 23:07:50 03/12/19 24 2023 CBC, NO DIFFE RENTI AL/PL ATELE T MCH 26.5 pg 26.6-3 3.0 below low normal Not Available [facility] [address] [place], [address], 2023 23:07:50 03/12/19 24 2023 CBC, NO DIFFE RENTI AL/PL ATELE T MCHC 29.9 g/dL 31.5-3 5.7 below low normal Not Available [facility] [address] [place], [address], 2023 23:07:50 03/12/19 24 2023 CBC, NO DIFFE RENTI AL/PL ATELE T RDW 13.8 % 11.5-[address] [facility] [address] [place], [address], 2023 23:07:50 03/12/19 24 2023 CBC, NO DIFFE RENTI AL/PL ATELE T NRBC 0 % 0-[address] [facility] [address] [place], [address], 2023 23:07:50 03/12/19 24 03/13/2023 ALBUM IN/CR EATIN INE RATIO ,URIN E creatinine, urine 104.7 mg/dL notest ab. Not Available [facility] ([facility]) [address] [facility], [place], [address], 03/13/2023 10:15:47 03/12/19 24 03/13/2023 ALBUM IN/CR EATIN INE RATIO ,URIN E albumin, urine 511.4 ug/mL notest ab. Resul ts confi rmed on dilut ion. Not Available [facility] ([facility]) [address] [facility], [place], [address], 03/13/2023 10:15:47 03/12/19 24 03/13/2023 ALBUM IN/CR EATIN INE RATIO ,URIN E alb/creat ratio 488 mg/g_ creat 0-29 above high normal Kimberly l: 0 - 29 Moder ately incre ased: 30 - 300 Sever naima incre ased: >300 Not Available [facility] ([facility]) [address] [facility], [place], [address], 03/13/2023 10:15:47 03/12/19 24 03/13/2023 TSH RFX ON ABNOR MAL TO FREE T4 TSH 2.130 uIU/m L 0.450- 4.500 Not Available [facility] ([facility]) [address] [facility], [place], [address], 03/13/2023 10:15:48 03/12/19 24 03/13/2023 VITAM IN [...] and D. Leobardo karimi [place]: The Natio counts include 234 beds at the [facility] . 2. Jarrett boswell [place], Hailee burgess [place], Alma Delia off-F errar i BAUMANN, et al. Evalu ation , treat ment, and preve ntion of vitam in D defic iency : an Endoc rine Socie ty clini dwayne pract ice guide line. JCEM. 2010; 96(7) :1911 -30. Not Available [facility] ([facility]) [address], [place], [address], 03/13/2023 10:15:49 03/12/19 24 2023 HbA1c (hemo globi n A1c), blood HbA1c 6.4 Not Available In-Office Order Internal Use Only DO Not Attach Compendium DO Not Attach Compendium, Do Not Delete/merge, [id number] 2023 11:51:02 03/12/19 24 2023 gluco se, finge rstic k, blood Blood Glucose: mg/dl 178 Not Available In-Off ice Order Internal Use Only DO Not Attach Compendium DO Not Attach Compendium, Do Not Delete/merge, [id number] 2023 11:51:04 06/16/19 23 06/15/2022 XR, abdom en No observ ation record ed. [address] [facility], [place], [address], 10/06/2022 15:11:10 06/16/19 23 06/14/2022 CT, abdom en + pelvi s, w/o contr ast No observ ation record ed. [address], [place], [address], 10/06/2022 15:11:10 11/02/19 23 11/01/2022 XR, chest , 1 view No observ ation record ed. [address], [place], [address], 11/05/2022 17:56:22 01/10/20 23 12/25/2022 MRI, abdom en + pelvi s, w/wo contr ast No observ ation record ed. [facility] - Gynecologic Oncology [address] [place] [address], [address], 01/12/2023 10:36:39 03/19/19 24 03/17/2023 MAMMO , scree lexx, bilat eral No observ ation record ed. [facility] Him Department [address], [place], [address], 03/24/2023 14:16:33 06/19/1906/19/2023 US, suyapale x, arter ial, upper extre mity No observ ation record ed. [facility] [address], [place], [address], 07/02/2023 11:53:57 Result Notes None recorded. Problems Name Problem SNOMED Code Status Onset Date Resolution Date Notes Provider Name and Address Organization Details Recorded Time Hyperten sive disorder 19375831 Active 2018 Giselle remy [place], [place] [facility] 2 10:42:15 Chronic kidney disease stage 3 972732149 Completed 201804/18/2021 follows with Ivonne Marte at [facility] Danica Alvarez RN [place], [place] [facility] 2 12:05:25 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 689705381 Active 2021 Giselle rem[place] [facility] 2 10:41:58 Vitamin D deficien cy 85899033 Active 2021 Giselle rem[place] [facility] 2 10:42:32 Family history of malignan t neoplasm of breast in first degree relative 945451677 Active 2021 KRISTY Topete- Attn: Kerry galarza,[address] [facility], [place], [address], [place] [facility] 2 11:34:39 Cyst of left ovary 80573149186 568359 Active 2021 G[place]elle [place] [facility] 2 10:45:06 Morbid obesity 868705232 Active 2021 DENNY [place] [facility] 2 10:42:28 Pelvic mass 36717001 Active 2021 KRISTY Topete-BC Attn: Accountin g,[address] [facility], [place], [address], [place] [facility] 2 11:34:39 Gastroes ophageal reflux disease 121783918 Active 2020 Giselle Betakarlyour t, [place] [facility] 2 10:42:49 Irritabl e bowel syndrome 69296761 Active 2020 Giselle Betancour t, [place] [facility] 2 10:44:10 Chronic constipa tion 874993572 Active 2021 Giselle Betancour t, [place] [facility] 2 10:42:07 History of optic neuritis 56995216837 105421 Active 2021 Giselle Betancour t, [place] [facility] 2 10:44:00 Bereavem ent 08099225 Active [address] [facility] Attn: Kerry g,[address] [facility], [place], [address], [place] [facility] 2 12:54:36 Body mass index 30+ - obesity 251764513 Active 2021 Danica Al[place] [facility] 3 14:27:16 History of cerebrov ascular accident 845867043 Active 2022 [facility] Attn: Accountin g,[address] [facility], [place], [address], [place] [facility] 3 15:13:27 Mass of right breast 38735383725 451335 Active [address] [facility] Attn: Accountin g,[address] [facility], [place], [address], [place] [facility] 3 12:28:12 Obesity 182305195 Active [address] [facility] Attn: Accountin michell,[address] [facility], [place], [address], [place] [facility] 4 12:29:07 Anterior knee pain 668328275 Completed 07/09/2017 Danica [place] [facility] 8 16:14:18 Uncontro lled type 2 diabetes mellitus 299769037 Active Giselle rem[place] [facility] 2 10:42:39 Painful mouth 839305911 Completed 11/22/2014 Giselle Bet[place]our t [place] [facility] 6 10:27:39 Knee pain Completed 07/09/2018 Danica [place] [facility] 9 11:36:54 Right upper quadrant pain 498058820 Completed 07/09/2017 Danica [place] [facility] [place] 16:17:24 Epigastr ic pain 74856581 Completed 07/09/2017 Danica [place] [facility] 16:18:28 Heartbur n 39057318 Completed 07/09/2017 Dan[place] [facility] [place] 16:13:45 Flatulen t dyspepsi a 761511189 Completed 07/09/2017 Dan[place] [facility] [place] 16:17:14 Diabetes mellitus 21186074 Completed 11/22/2014 Giselle [place] [facility] 6 10:27:39 Helicoba cter detected in blood 341271213 Completed 07/09/2017 Dan[place] [facility] [place] 16:13:50 Acute peptic ulcer 836951332 Completed 07/09/2017 Dan[place] [facility] 16:13:58 Patellof emoral osteoart hritis 641542448 Active Giselle [place] [facility] 2 10:44:24 Infestat ion by Sarcopte s scabiei ernesto hominis 847186554 Completed 11/22/2014 Dan[place] [facility] [place] 16:13:39 Thigh pain 13177544 Completed 07/09/2017 Dan[place] [facility] 16:18:22 Diabetic peripher al neuropat hy 621993938 Active Giselle rem[place] [facility] 2 10:43:41 Infestat ion by Sarcopte s scabiei ernesto hominis 857691738 Completed 07/09/2017 Danica [place] [facility] [place] 16:13:39 Osteoart hritis of knee 822606778 Active Giselle [place] [facility] 2 10:44:14 Bronchit is 65036629 Completed 07/09/2017 Dan[place] [facility] [place] 16:17:39 Acute bronchit is 21237897 Completed 07/09/2017 Dan[place] [facility] [place] 16:13:34 Allergic rhinitis 59296450 Active Giselle rem[place] [facility] 2 10:42:02 Eruption 632543175 Completed 07/09/2017 Dan[place] [facility] 16:17:18 Otitis media 50097424 Completed 201607/09/2017 Dan[place] [facility] [place] 16:18:08 Acute conjunct ivitis 34025010 Completed 201607/09/2017 Dan[place] [facility] 16:17:46 Acute laryngit is 9099452 Completed 201607/09/2017 Danica [place] [facility] 16:18:18 Problem Notes None recorded. Procedures Surgical History Date Name Laterality Status Provider Name and Address Organization Details Recorded Time 06/05/19 Date of Last Mammogram completed Danica Alvarez RN [facility] 10/06/2022 14:29:46 03/21/19 22 Date of Last Pap Smear completed Danica Alvarez RN [facility] 10/06/2022 14:43:25 03/14/19 22 oophorectomy completed JOHN Topete Attn: Accounting,[address], [place], [address], [facility] 03/21/2021 14:05:13 03/14/19 22 laparoscopic insertion of peritoneal dialysis catheter completed JOHN Topete Attn: Accounting,[address], [place], [address], [facility] 03/21/2021 14:03:20 03/20/19 16 Joint Injection completed Tomer Boles MD [address] [place], [address], [facility] 03/20/2015 11:44:06 12/20/19 15 Joint Injection completed Tomer Boles MD [address] [facility], [place], [address], [facility] 12/19/2014 12:04:38 02/23/18 95 Caesarean Section completed Danica Alvarez RN [facility] 06/07/2014 16:13:25 02/23/18 94 Caesarean Section completed Danica Alvarez RN [facility] 06/07/2014 16:13:25 02/23/18 92 Caesarean Section completed Danica Alvarez RN [facility] 06/07/2014 16:13:25 Imaging Results Imaging Date Name Status LastModified by [facility] Details LastModified Time 06/15/2022 XR, abdomen completed [address], [address], 10/06/2022 15:11:10 06/14/2022 CT, abdomen + pelvis, w/o contrast completed [address], [address], 10/06/2022 15:11:10 11/01/2022 XR, chest, 1 view completed [facility] [address] [facility] [address], [place], [address], 11/05/2022 17:56:22 12/25/2022 MRI, abdomen + pelvis, w/wo contrast completed [facility] [address] [place], [address], 01/12/2023 10:36:39 03/17/2023 MAMMO, screening, bilateral completed [facility] Him Department [address], [place], [address], 03/24/2023 14:16:33 06/19/2023 US, duplex, arterial, upper extremity completed [facility] [address] [facility] [address], [place], [address], 07/02/2023 11:53:57 Procedure Notes None recorded. Medical Equipment None Reported. Allergies Allergen ID Allergen Name Allergen Category Reaction Reaction Severity Criticality Documentation Date Start Date Code Code System Note Provider Name and Address Organization Details Recorded Time 00081 Flagyl medicatio n hives Not available Not available 07/06/201472054 6 RxNorm Not Available Not Available Not Available 18707 omeprazol e medicatio n rash Not available [...] e 50 mcg/actua tion nasal spray,fernando pension [place] 1 spray twice a day by intranas [...] Updated DateTime 3 160.02 cm 36.3 kg/m2 57883.4 4 g 99 % 99 % 86 /min 98.1 [degF] 140 mm[Hg] 90 mm[Hg] Giselle remy [place] [facility] 3 14:15:58 Date Recorded Body height Body mass index (BMI) Body weight Heart rate Body temperature Systolic blood pressure Diastolic blood pressure Provider Name and Address Organization Details Last Updated DateTime 3 160.02 cm 33.5 kg/m2 37932.9 6 g 80 /min 97.9 [degF] 120 mm[Hg] 74 mm[Hg] Danica Alvarez RN [facility] 3 14:52:55 Date Recorded Body height Body mass index (BMI) Body weight Body temperature Oxygen saturation Oxygen saturation in Arterial blood by Pulse oximetry Heart rate Systolic blood pressure Diastolic blood pressure Provider Name and Address Organization Details Last Updated DateTime 3 160.02 cm 32.1 kg/m2 59423.6 2 g 98.5 [degF] 98 % 98 % 74 /min 122 mm[Hg] 70 mm[Hg] Giselle remy MA [facility] 3 11:37:24 Date Recorded Body height Oxygen saturation Oxygen saturation in Arterial blood by Pulse oximetry Heart rate Body temperature Body mass index (BMI) Body weight Systolic blood pressure Diastolic blood pressure Provider Name and Address Organization Details Last Updated DateTime 4 160.02 cm 100 % 100 % 68 /min 98.1 [degF] 32.6 kg/m2 69458.4 g 140 mm[Hg] 90 mm[Hg] Giselle remy MA [facility] 4 11:59:24 Date Recorded Body height Body mass index (BMI) Body weight Oxygen saturation Oxygen saturation in Arterial blood by Pulse oximetry Heart rate Respiratory rate Body temperature Systolic blood pressure Diastolic blood pressure Provider Name and Address Organization Details Last Updated DateTime 4 160.02 cm 32.1 kg/m2 08611.2 2 g 100 % 100 % 68 /min 16 /min 98.1 [degF] 184 mm[Hg] 90 mm[Hg] Asad Mcfarlane MA [facility] 4 19:40:59 Social History Question Answer Notes LastModified by Organizat ion Details LastModified Time Tobacco Smoking Status Never Smoker Danica Alvarez RN 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 [id number] Information not available 03/21/2021 Do You Use [...] [email or web address] Not available 06/23 16:41:47 Father Malignant neoplasm of prostate [email or web address] Not available 10:27:40 Sister [...] pneumococcal polysaccharide PPV23 8 completed Not Available [facility] 2019 02:45:24 Tdap 8 completed Not Available [facility] 2019 02:35:23 Pneumococcal conjugate PCV 13 2 completed Danica Al[place], [place] [facility] 04/19/2021 09:45:40 Hep B, adult 2 completed Danica Al[place] [facility] 04/19/2021 09:44:41 Influenza, split virus, quadrivalent, preservative 2 completed Alonzo Reynolds MD Attn: Accounting,[address] [place], [place], [address] [place] [address], [place] [facility] 12/30/2021 15:50:00 Hep B, adult 3 completed JOHN Topete Attn: Accounting,[address] [place], [place], [address] [place] [address], [place] [facility] 10/07/2022 09:34:18 Influenza, split virus, quadrivalent, preservative 3 completed Cordelia Alexander [place] [facility] 02/03/2023 13:00:18 Hep B, adult 4 completed JOHN Topete Attn: Accounting,[address] [place], [address], [place] [facility] 2023 15:26:13 Pneumococcal conjugate PCV20, polysaccharide [id number] conjugate, adjuvant, PF 4 completed JOHN Topete Attn: Accounting[address] [place], [address], [facility] - [facility] 2023 15:26:13 Past Encounters Encounter ID Performer Location Encounter Start Date Encounter Closed Date Diagnosis/Indication Diagnosis SNOMED-CT Code Diagnosis ICD10 Code Diagnosis Note [id number] Danica Alvarez RN [facility] [address], [place] [address] 06/07/2014 15:52:20 06/08/2014 15:51:04 Anterior knee pain 521023447 06/04/2014 left knee xray=moder ate joint effusion otherwise normal 05/05/2014 left knee xray=joint effusion otherwise normal 11/24/2013 left knee xray=kimberly l the patient has not gone to PT which was ordered back in 10/2013 as something came up advised weight loss stressed to take Gabapentin 300mg tid daily not prn Uncontroll ed type 2 diabetes mellitus 744904465 the patient follows with Dr. Catherine Gaytan Endocrinol ogheather at [place]. The patient is non compliant with treatment and management of DM2 [id number] Danica Alvarez RN [address] [address] 06/20/2014 17:46:17 06/21/2014 09:46:05 Painful mouth 369219524 antibiotic s and follow up Knee pain 18780406 sees ortho August 15... pain meds and follow up [id number] Danica Alvarez RN [facility] [address] [place] [address] 07/06/2014 12:15:55 07/11/2014 13:25:20 Right upper quadrant pain 778524143 06/29/2014 CT of ABD/PELVIS showed a contracted Gallbladde r 07/03/2014 GB u/S = NORMAL Completed 1 week of daily Omeprazole BRAT diet avoid spicy foods or anything aggravatin g Epigastric pain 68925176 Heartburn 32975653 Flatulent dyspepsia 809217877 Diabetes mellitus 07116615 Patient follows up with ENDOCRINYADIRA BARRIOS AT [facility] for this problem--s he is to continue to follow up with that office for this medical problem. [id number] Jessie Crockett, [facility] [address], [place] [address] 07/19/2014 16:17:50 07/21/2014 16:53:41 Knee pain 63410607 see orthopedic s stop Ibuprofen for now will give some Tramadol for pain until seen by Ortho Continue PT Patient to discuss Rx for brace with Ortho Acute peptic ulcer 449914796 complete Triple therapy keep apt with GI Avoid aggravatin g foods [id number] [facility] [address] [place] [address] 08/15/2014 09:14:17 08/16/2014 12:02:00 Patellofemoral osteoarthritis 312499816 [id number] Danica Alvarez RN [facility] [address], [place] [address] 10/02/2014 13:49:33 10/09/2014 12:46:07 Infestation by Sarcoptes scabiei ernesto hominis [id number] Khai Trotter [facility] [address], [place] [address] 11/22/2014 12:15:53 11/23/2014 17:10:01 Thigh pain 28617546 Increase Gabapentin 600mg bid to tid Keep blood sugars in the low 100's weight loss, exercise diabetic neuropathy informatio n discussed and handout given Knee pain 36903117 see orthopedic s--as patient voices difficulty in getting an appointmen t RN has helped to get appt. and patient is now scheduled for 12/19/2014 --keep appointmen t weight loss/ROM exercises at home Use brace as directed Diabetic p eripheral neuropathy 441031367 Uncontroll ed type 2 diabetes mellitus 327661241 the patient follows with Dr. Catherine Gaytan Endocrinol ogheather at [place]. The patient is non compliant with treatment [...] t and/or take with endocrinol ogist at [facility] t prn [id number] Tomer Boles MD [facility] [address] [place] [address] 12/19/2014 10:37:52 12/19/2014 16:01:48 Knee pain 93082622 M25.569 Patellofem oral osteoarthritis 994012749 M17.9 Infestatio n by Sarcoptes scabiei ernesto hominis [id number] B86 [id number] Sonam La [facility] [address] [place] [address] 03/20/2015 09:57:27 03/20/2015 13:54:02 Osteoarthritis of knee 349755010 M17.9 Anterior knee pain 83067 3006 M25.569 [id number] Jessie Crockett [facility] [address], [place] [address] 06/07/2015 10:25:17 06/11/2015 17:59:47 Adult health examination 874744659 Z00.01 Acute bronchitis 7782807 2 J20.9 Allergic rhinitis 348836 04 J30.9 Uncontrol ed type 2 diabetes mellitus 962154023 E11.65 the patient follows with Dr. Catherine Gaytan Endocrinol ogy at [place]. The patient reports she is now compliant [...] fos fasting labs which she will get [facility] Medication monitoring 39 2517244 Z51.81 Patient was started on B/P medicine Lisinopril 5mg once daily per Endo Tessie black NP on 04/10/2015= =she was given 11 RF and still using first bottle [id number] Carmelo Shore PA-C [address] [address] 05/31/2015 17:04:34 06/16/2015 13:13:12 Bronchitis 89758751 J40 [id number] Yana Kauffman [address] [address] 08/17/2015 18:18:44 08/21/2015 03:47:53 Eruption 397452619 R21 [id number] Carmelo Shore PA-C [facility] [address] [place] [address] 04/24/2016 17:43:51 04/25/2016 17:15:56 Otitis media 20430513 H66.91 Acute conjunctivitis 537 79115 H10.31 Acute laryngitis 2184870 J04.0 viral [id number] [facility] [address], [place] [address] 07/09/2017 15:52:35 07/10/2017 10:25:39 Gynecologic examination 44391385 Z01.411 Self breast exam calcium rich foods handout vitamin D 2000 iu daily exercise weight loss diet Administra tion of pneumococcal vaccine 28383023 Z23 Administra tion of diphtheria, pertussis, and tetanus vaccine 163238864 Z23 Morbid obesity 162862322 E66.01 Cyst of left ovary 96708 64169 0940945 N83.202 Uncontroll ed type 2 diabetes mellitus 233874881 E11.65 the patient follows with Dr. Catherine Gaytan Endocrinol ogy at [facility]. The patient reports she is now compliant with treatment and management of DM2 2/2 to issues with her medication s not covered by insurance per patient report discussed ramificati ons of uncontroll ed DM and neuropathy symptoms patient is to call follow up with Endocrinol ogist for management of this problem Family his tory of malignant neoplasm of breast in first degree relative 079217685 Z80.3 Patient refuses referral for genetic testing [id number] Jessie Crockett [facility] [address], [place] [address] 09/23/2017 12:32:53 09/30/2017 18:12:11 Vaginitis 22809612 N76.0 Candidal vulvovaginitis 25775626 B37.3 [id number] [facility] [address], [place] [address] 07/09/2018 11:53:24 07/12/2018 10:40:14 Gynecologic examination 33568823 Z01.411 Self breast exam calcium rich foods handout vitamin D 2000 iu daily exercise weight loss diet Last pap 07/09/2017 normal due in 2020 Morbid obesity 922025974 E66.01 40.7 bmi Cyst of left ovary 16236 49689 6193718 N83.202 Uncontroll ed type 2 diabetes mellitus 801642598 E11.65 g the patient follows with Dr. Catherine Gaytan Endocrinol ogy at [place]. The patient reports she is now compliant [...] neoplasm of breast in first degree relative 318011549 Z80.3 Patient's mother had breast cancer at 40 y/o Screening for malignant neoplasm of breast 835425725 Z12.31 Patient's mother had breast cancer at 40 y/o Adjustment disorder with depressed mood 11362519 F43.21 psychother apist list [id number] [facility] [address] [place] [address] 03/21/2021 11:24:25 03/22/2021 06:47:39 Gynecologic examination 49365656 Z01.411 Self breast exam calcium rich foods handout vitamin D 2000 iu daily exercise weight loss diet Last pap 07/09/2017 normal Morbid obesity 144486167 E66.01 39.4 bmi Cyst of left ovary 74516 88826 8752418 N83.202 Uncontroll ed type 2 diabetes mellitus 989486962 E11.65 the patient is currently not following with anyone for this problem the patient [place] [facility] [place] using LantusHydr alazine 100mg bidLisinop ril 20mg daily Family his tory of malignant neoplasm of breast in first degree relative 033081679 Z80.3 Patient's mother had breast cancer at 40 y/oPATIENT WAS REFERRED TO COUNSELING BUT THE PATIENT DID NOT FOLLOW THRU Screening for malignant neoplasm of breast 451238623 Z12.31 Patient's mother had breast cancer at 40 y/o Adjustment disorder with depressed mood 45161010 F43.21 psychother apist list Hypertensive disorder 38 553808 I10 BP Goal: {{Less than 140/90 Les [...] 9 10 11 12} }{{week(s) month(s)* }} [id number] Jessie Crockett [facility] [address] [place] [address] 04/18/2021 11:33:48 04/19/2021 07:52:01 Uncontrolled type 2 diabetes mellitus 432779639 E11.65 HA1C 6.1random accucheck 183the patient is currently not following with anyone for this problem she had been getting meds during ER visits-she had hospitaliz ation at [place] 01/20/2021 found to be in ARF-starte d [...] ki dney disease stage 5 on dialysis 137513183 Z99.2 [place] Morbid obesity 247824532 E66.01 40.8 bmiHealthy Weight: {{4'10= 91-118 lbs [...] lbs 6'4= 156-204 lbs}} Hypertensive disorder 38 836790 I10 BP Goal: {{Less than 140/90* Le [...] }}[facility] Z00.01 Pelvic mass 29012209 R19 .00 L adnexal mass seen on pelvic u/s on 04/18/2021L arge cystic mass of the left adnexal region measuring at least 11.8 cm.This is indetermin ate for malignancy and not well characteri namratad sonographi aaron.Furt her evaluation is recommende d with either CT or MRI with and withoutcon trast.Will send for MRI Anemia in chronic kidney disease 945884278 D63.1 Chronic constipation 236 460463 K59.09 Takes BisacodylT akes stool softener History of optic neuritis 1839787198 4675518 Z86.69 2020seen opth 2020 [id number] Cordelia Alexander, [facility] [address] [place] [address] 05/10/2021 09:59:12 05/13/2021 07:13:40 Uncontrolled type 2 diabetes mellitus 943618812 E11.65 HA1C 6.1random accucheck 183the patient is currently not following with anyone for this problem she had been getting meds during ER visits-she had hospitaliz ation at [place] 01/20/2021 found to be in ARF-starte d on dialysissh e presents today to establish care at this centerthe patient now on dialysis with [facility] in [facility] le will be transition ing to self dialysis-s he is interested in renal transplant currently using Lantus 8 units at HSHydralaz ine 100mg bidLisinop ril 20mg dailylabet olol 200mg BID Anemia in chronic kidney disease 147855017 D63.1 [id number] Jessie Crockett [facility] [address] [place] [address] 07/04/2021 11:05:56 07/05/2021 10:25:01 Allergic rhinitis 36240393 J30.9 otc zyrtec samples Uncontroll ed type 2 diabetes mellitus 988729991 E11.65 Today HA1C 8.1random accucheck 245the patient is currently not following with anyone for this problem she had been getting meds during ER visits-she had hospitaliz ation at [place] 01/20/2021 found to be in ARF-starte d [...] may have med adjustment Hypertensive disorder 38 037045 I10 BP Goal: {{Less than 140/90* Le [...] has refill of her meds from nephrologi [facility] dney disease stage 5 on dialysis 971691694 Z99.2 continue to [place] Diabetic p eripheral neuropathy 695645149 E11.40 stable Gastroesop hageal reflux disease 393998769 K21.9 stable for now Morbid obesity 358914232 E66.01 40.8 bmiHealthy Weight: {{4'10= 91-118 lbs [...] lbs 6'4= 156-204 lbs}} Depression screening 171 210524 Z13.31 PHQ2-9 mild depression -patients 20 y/o daughter unexpected ly a couple of weeks agoPatient reports having difficulty sleeping Depressive disorder 3548 9007 F32.A 07/04/2021 PHQ2-9 09/18Agrees to start Rx escitalopr am Chronic constipation 236 203065 K59.09 Takes BisacodylT akes stool softener Bereavement 87658585 Z63 .4 recommend psychother apist-seek appointmen t [id number] Jessie Crockett [facility] [address] [place] [address] 08/15/2021 11:09:34 08/16/2021 15:00:04 Acute sinusitis 25883933 J01.90 Morbid obesity 654490938 E66.01 41.2 bmiHealthy Weight: {{4'10= 91-118 lbs 4'11= 94-123 lbs 5'= 97-127 lbs 5'1= 100-131 lbs 5'2= 104-135 5' 3= 107-140 lbs* 5'4= 110-144 lbs 5'5= 115-149 lbs 5'6= 118-154 lbs 5'7= 121-158 lbs 5'8= 125-163 lbs 5'9= 128-168 lbs 5'10= 132-173 lbs 5'11= 136-178 lbs 6'= 140-183 lbs 6'1= 144-188 lbs 6'2= 148-193 lbs 6'3= 152-199 lbs 6'4= 156-204 lbs}} Bereavement 45562030 Z63 .4 recommend psychother apist-seek appointmen t Depressive disorder 3548 9007 F32.A 08/15/2021 PHQ2-9 wishes not to take Rx escitalopr twan cope on her owndenies suicide ideationre commend seek psychother demetrio/eladio t group Acute conjunctivitis 537 57481 H10.13 [id number] Jessie Crockett, [facility] [address] [place] [address] 11/04/2021 11:15:18 11/05/2021 11:07:40 Uncontrolled type 2 diabetes mellitus 479280783 E11.65 Today HA1C 10.1random accucheck4 12BS 150-260 range just with Lantus 8 units-has not been using Lispro insulin for a whilethe patient is currently not following with anyone for this problem she had been getting meds during ER visits-she had hospitaliz ation at [place] 01/20/2021 found to be in ARF-barbarae d on dialysissh e presented [facility] le has transition ed to self dialysis-s he is interested in renal transplant -has consulted at [facility] using Lantus 8 units at HS-BS at home 111-160Hyd ralazine 100mg bidLisinop ril 20mg dailylabet olol 300mg BID Allergic rhinitis 716254 04 J30.9 otc zyrtec samples Hypertensive disorder 38 632555 I10 BP Goal: {{Less than 140/90* Le [...] 11 12} }{{week(s) month(s)* }}[facility] 069265376 Z99.2 [facility] to [facility] [place] Diabetic p eripheral neuropathy 691169278 E11.40 stable Gastroesop hageal reflux disease 097824271 K21.9 stable for now Morbid obesity 818952033 E66.01 37.8 bmiHealthy Weight: {{4'10= 91-118 lbs 4'11= 94-123 lbs 5'= 97-127 lbs 5'1= 100-131 lbs 5'2= 104-135 5' 3= 107-140 lbs* 5'4= 110-144 lbs 5'5= 115-149 lbs 5'6= 118-154 lbs 5'7= 121-158 lbs 5'8= 125-163 lbs 5'9= 128-168 lbs 5'10= 132-173 lbs 5'11= 136-178 lbs 6'= 140-183 lbs 6'1= 144-188 lbs 6'2= 148-193 lbs 6'3= 152-199 lbs 6'4= 156-204 lbs}} Bereavement 81759260 Z63 .4 recommend psychother apist-seek appointmen t Depression screening 171 714606 Z13.31 PHQ2-9 wnl now Chronic constipation 236 904054 K59.09 Takes BisacodylT akes stool softener Cyst of left ovary 65206 97304 8328445 N83.202 Patient has had cyst since 2018Patien t has been referred to [facility] for this problem back in 2018 and again in 2Transp lant team needs a [employer] note clearing for kidney transplant Has not seen [facility] [facility] [employer] yet-appoin tment scheduled for later in the month [id number] Alonzo Reynolds MD [facility] [address] [place] [address] 12/27/2021 10:28:17 12/30/2021 12:57:50 Mass of right breast 2883768013 0126024 N63.10 movable soft mass 1.5cm (2) area below R nipple Body mass index 30+ - obesity 274935045 Z68.36 BMI 36.9Ht 5' 3 Healthy weight range 95-130 Depression screening 171 178720 Z13.31 PHQ2-9 wnl Mental hea lth screening 454505110 Z13.39 HAYLEY-7 negative Administra tion of influenza vaccine 69337623 Z23 [id number] [facility] [address] [place] [address] 01/31/2022 11:30:16 02/03/2022 13:44:44 Family history of malignant neoplasm of breast in first degree relative 328976783 Z80.3 Patient's mother had breast cancer at 40 y/oPATIENT WAS REFERRED TO COUNSELING BUT THE PATIENT DID NOT FOLLOW THRU1 PATIENT WANTS TO GO TO [facility]SEL[facility] Mass of right breast 854 3663544 7398534 N63.10 movable soft mass 1.5cm (2) area below R nipple Body mass index 30+ - obesity 004872584 Z68.36 BMI 36.Ht 5' 3 Healthy weight range 95-130 Depression screening 171 287425 Z13.31 PHQ2-9 mild depression Mental hea lth screening 612574185 Z13.39 HAYLEY-7 negative Hypertensive disorder 38 165283 I10 BP Goal: {{Less than 140/90* Le [...] 12} }{{week(s) month(s)* }}Gets meds from Nephrologi [id number] Jessie Crockett, [facility] [address] [place] [address] 03/05/2022 11:39:06 2022 12:49:43 Uncontrolled type 2 diabetes mellitus 618945167 E11.65 Today HA1C 9.6random accucheck 225BS 150-260 range just with Lantus 8 units-has not been using Lispro insulin for a whilethe patient is currently not following with anyone for this problem she had been getting meds during ER visits-she had hospitaliz ation at [place] 01/20/2021 found to be in ARF-starte d on dialysissh e presented [facility] le has transition ed to self dialysis-s he is interested in renal transplant -has consulted at [facility] using Lantus 10 units at -BS at home 69-160Hydr alazine 100mg bidLisinop ril 20mg dailylabet olol 300mg BID Hypertensive disorder 38 953429 I10 BP Goal: {{Less than 140/90* Le [...] 11 12} }{{week(s) month(s)* }}[facility] 017519702 Z99.2 continue to [place] Body mass index 30+ - obesity 789248227 Z68.36 BMI 36.Ht 5' 3 Healthy weight range 95-130 Allergic rhinitis 495573 04 J30.9 otc zyrtec Diabetic p eripheral neuropathy 678523614 E11.40 stable Gastroesop hageal reflux disease 865191832 K21.9 stable for now Morbid obesity 047566194 E66.01 36 bmiHealthy Weight: {{4'10= 91-118 lbs [...] 6'4= 156-204 lbs}} Cyst of left ovary 97268 31249 5429697 N83.202 Patient has had cyst since 2018Patien t has been referred to [facility] for this problem back in 2018 and again in 2021Transp lant team needs a [employer] note clearing for kidney transplant Has not seen [employer] yet-appoin tment scheduled for later in the month Chronic constipation 236 934553 K59.09 Takes BisacodylT akes stool softener Depression screening 171 518789 Z13.31 PHQ2-9 negative Mental hea lth screening 733794542 Z13.39 HAYLEY-7 negative Nasal congestion 2738534 0 R09.81 Acute laryngitis 3341428 J04.0 Exposure to scabies 1626 936054 9080728 Z20.7 Pruritic rash 63413830 L 28.2 [id number] Jessie Crockett [facility] [address], [place] [address] 06/11/2022 14:01:33 06/12/2022 14:47:11 Body mass index 30+ - obesity 381373128 Z68.36 BMI 36.3Ht 5' 3 Healthy weight range 95-130 Obesity 666825026 E66.9 BMI 36.3Ht 5' 3 Healthy weight range 95-130 Follow-up visit 48737792 9 Z09 42 y/o AAF presents for follow up ER visit on 05/03/2022 to [facility] for severe headache. The patient has a [...] to see neurology. History of cerebrovascular accident 314130640 Z86.73 05/03/[address] showed small region of decreased attenuatio n at left occipital lobe suspicious for relatively recent, potentiall y acute infarct which is new since 01/06/2022 . Hypertensive disorder 38 928442 I10 BP Goal: {{Less than 140/90* Le [...] Hydralazin e 100mg bid Depression screening 171 934772 Z13.31 PHQ2-[address] [facility] screening 877376459 Z13.39 HAYLEY-7 negative [id number] Jessie Crockett, [facility] [address] [place] [address] 10/06/2022 14:16:18 10/07/2022 11:43:28 Hypertensive disorder 61095179 I10 BP Goal: {{Less than 140/90* Le [...] bid Uncontroll ed type 2 diabetes mellitus 036585498 E11.65 Today HA1C 8random accucheck 225BS 150-260 range just with Lantus 8 units-has not been using Lispro insulin for a whilethe patient is currently not following with anyone for this problem she had been getting meds during ER visits-she had hospitaliz ation at [place] 01/20/2021 found to be in ARF-starte d on dialysissh e presented here on [facility]/18[facility] le has transition ed to self dialysis-s he is interested in renal transplant -has consulted at [facility] and is on waiting listcurren tly using Lantus 10 units at -BS at home 69-160Pati ent will start using Lispro insulin 5 units bid she has not been using secondary to low sugars and afraidPati ent is taking Labetalol 300mg bidHydrala zine 100mg bidLisinop ril 20mg daily Morbid obesity 121371184 E66.01 33.5 BMIHealthy Weight: {{4'10= 91-118 lbs 4'11= 94-123 lbs 5'= 97-127 lbs 5'1= 100-131 lbs 5'2= 104-135 5' 3= 107-140 lbs* 5'4= 110-144 lbs 5'5= 115-149 lbs 5'6= 118-154 lbs 5'7= 121-158 lbs 5'8= 125-163 lbs 5'9= 128-168 lbs 5'10= 132-173 lbs 5'11= 136-178 lbs 6'= 140-183 lbs 6'1= 144-188 lbs 6'2= 148-193 lbs 6'3= 152-199 lbs 6'4= 156-204 lbs}} Allergic rhinitis 826203 04 J30.9 otc zyrtec Gastroesop hageal reflux disease 055555326 K21.9 stable for now Obesity 423054754 E66.9 BMI 33.5Ht 5' 3 Healthy weight range 95-130 Chronic ki dney disease stage 5 on dialysis 722044737 Z99.2 continue to follow up with [facility] [place], [place] Body mass index 30+ - obesity 479490402 Z68.36 BMI 33.5Ht 5' 3 Healthy weight range 95-130 Diabetic p eripheral neuropathy 850735007 E11.40 stable Cyst of left ovary 55533 94297 0634756 N83.202 Patient has had cyst since 2018Patien t has been referred to [facility] for this problem back in 2018 and again in 2021Transp lant team needs a [employer] note clearing for kidney transplant Has not seen [employer] yet-appoin tment scheduled for later Chronic constipation 236 136038 K59.09 Takes BisacodylT akes stool softener Nasal congestion 0655548 0 R09.81 Depression screening 171 634090 Z13.31 PHQ2-9 negative Mental hea lth screening 985682864 Z13.39 HAYLEY-7 negative Requires c ourse of hepatitis B vaccination 294931645 Z28.39 [id number] Jessie Crockett [facility] [address], [place] [address] 02/03/2023 11:22:33 02/04/2023 11:52:11 Body mass index 30+ - obesity 136088212 Z68.36 BMI 32.1Ht 5' 3 Healthy weight range 95-130 Depression screening 171 569833 Z13.31 PHQ2-[address]nl [address] [facility] screening 893311971 Z13.39 HAYLEY-7 negative Screening for malignant neoplasm of breast 251106499 Z12.31 patients' mother had breast cancer at 40 y/o Administra tion of influenza vaccine 26066715 Z23 [id number] Jessie Crockett [facility] [address], [place] [address] 2023 11:02:07 03/13/2023 15:33:54 Uncontrolled type 2 diabetes mellitus 069047745 E11.65 Today HA1C 6.4random accucheck 178BS 150-260 range just with Lantus 8 units-has not been using Lispro insulin for a whilethe patient is currently not following with anyone for this problem she had been getting meds during ER visits-she had hospitaliz ation at [place] 01/20/2021 found to be in ARF-starte d on dialysissh e presented [facility] arias has transition ed to self dialysis-s he is interested in renal transplant -has consulted at [facility] and is on waiting listcurren tly using Lantus 10 units at HS-BS at home 69-160Pati ent stopped using Lispro insulin 5 units bid she has not been using secondary to low sugars and afraidPati ent is taking Labetalol 300mg bidHydrala zine 100mg bid Hypertensive disorder 38 812544 I10 BP Goal: {{Less than 140/90* Le [...] Labetalol 300mg bid Vitamin D deficiency 347 76511 E55.9 Allergic rhinitis 192855 04 J30.9 otc zyrtec Morbid obesity 132353018 E66.01 BMI 32.6Health y Weight: {{4'10= 91-118 [...] 6'4= 156-204 lbs}} Gastroesop hageal reflux disease 069817254 K21.9 stable for now Obesity 910534089 E66.9 BMI 32.6Ht 5' 3 Healthy weight range 95-130 Chronic ki dney disease stage 5 on dialysis 946957936 Z99.2 [place] [facility] [place] Body mass index 30+ - obesity 757810348 Z68.36 BMI 32.6Ht 5' 3 Healthy weight range 95-130 Diabetic p eripheral neuropathy 704083568 E11.40 stable Chronic constipation 236 853744 K59.09 Takes BisacodylT akes stool softener Nasal congestion 7807778 0 R09.81 Requires c ourse of hepatitis B vaccination 778804615 Z28.39 Depression screening 171 161273 Z13.31 PHQ2-9 negative Mental hea lt screening 493363795 Z13.39 HAYLEY-7 negative Administra tion of pneumococcal vaccine 79703397 Z23 Has DM2, CKD, Vaginitis 29224528 N76.0 c/o vaginal itching [id number] MARK Sargent [facility] [address] [place] [address] 09/08/2023 19:36:30 09/09/2023 08:36:21 Obesity 459787622 E66.8 Renewal of prescription 440229026 Z76.0 Diabetic p eripheral neuropathy 986259958 E11.40 Altered appetite 9503971 04 R63.8 Health Concerns Section Related Observation LastModified by Organization Detai ls LastModified Time None Recorded Concern Status LastModified by Organization Details LastModified Time None Recorded Advance Directives Directive N: Payers Encounter Date Sequence Insurance Name Policy Number Policy [place] Covered Member ID [place] Member ID Guarantor Name 06/11/2022 1 [place] Bakari Smith [id number] Bakari Smith 06/11/2022 2 [place] REPLACEMENT PRIMARY) Bakari Smith [id number] Bakari Smith 10/06/2022 1 [place] [id number] Bakari Smith 10/06/2022 2 [place]PLACEMENT [place]) Bakari Smith [id number] Bakari Smith 02/03/2023 1 [place] Bak[place] Smith [id number] Bakari Smith 02/03/2023 2 [place]PLACEMENT [place]) Bakari Smith [id number] Monia Luis 2023 1 [place]) Bak[place] Smith [id number] Bakari Smith 2023 2 [place]IC[place] REPLACEMENT PRIMARY) Bakari Smith [id number] Bakari Smith 09/08/2023 1 [place] Bak[place] Smith [id number] Bakari Smith 09/08/2023 2 [place]IC[place] REPLACEMENT [place]) Bakari Smith [id number] Bakari Smith Notes Date Note Type Note Provider Name and Address Organization Details Recorded Time 3 text/html 42 y/o AAF presents for follow up ER visit on 05/03/2022 to [facility] for severe headache. The patient has a [...] not started on Atorvastatin 80mg yet. KRISTY Topete-BEATRICE Attn: Accounting,[address] [place], [address], [facility] 06/11/2022 15:17:36 3 text/html ConstipationReported bypatient.Quality:hard;dry ;straining;decreased [...] dailylabetolol 300mg BIDFollows with DR Beth Barrett [employer] she is now doing dialysis 3 times [...] she doesnt eat on a regular basis. RICCI Topete Attn: Accounting,[address], [place], [address], [facility] 10/07/2022 10:01:14 3 text/html 42y/o BEV presents for CBE and mammogram order. She has no complaints. She continues to get dyalisis. She wants to get influenza vaccine. She has no contraindications. JOHN Topete Attn: Accounting,[address], [place], [address], [facility] 02/03/2023 12:30:19 4 text/html ConstipationReported bypatient.Quality:hard;dry [...] bidlabetolol 300mg BIDFollows with DR Beth Barrett Coat Fitter she is now doing dialysis 3 times [...] she has no appetitePatient requesting Rx for constipation-caitlin always has difficulty with constipation Dialysis center advises at least 1 BM dailyShe has seen Neurology and cardiology. She is on list for transplant voices was pushed back on list.She has not had recent labs done. She received influenza vaccine a couple of months ago.Patient agrees to prevnar 20 and Hepatitis B vaccine. She has no contraindications. JOHN Topete Attn: Accounting,[address] [facility], [place], [address], [facility] 04/02/2023 17:51:42 4 text/html Patient is here for medication refill. During assessment patient discloses that she is not eating. I will get hungry but then when I cook my food and try to eat it, I just cannot eat. Has had barium swallow and other tests but it is because I just cannot eat the food. When I eat gummies I eat without any issues. I don't understand it. I cannot keep doing gummies because I am on the transplant list and that is on the list of things I cannot do MARK Sargent Attn: Accounting,[address] [facility], [place], [address], [facility] 09/08/2023 20:26:04 OBGyn Episode Ob Episode Information Episode Created Date Number of Fetuses Patient Bloodtype Patient rh Status Prepregnancy Weight lbs Domestic Partner Domestic Partner Phone Father Name Health Type Technician Status 07/10/19 19 1 CLOSED Fetus Data First Name Last Name Admitted to NICU Weight (g) Sex Living Outcome Pediatric Complications Fetus ID Race Codes Race Delivery Type F [id number] Camilo Calculation Initial Camilo Date Initial Exam [...] Domestic Partner Domestic Partner Phone Father Name Health Type Technician Status 07/10/19 19 1 CLOSED Fetus Data First Name Last Name Admitted to NICU Weight (g) Sex Living Outcome Pediatric Complications Fetus ID Race Codes Race Delivery Type M [id number] Camilo Calculation Initial Camilo Date Initial Exam [...] Domestic Partner Domestic Partner Phone Father Name Health Type Technician Status 07/10/19 19 1 CLOSED Fetus Data First Name Last Name Admitted to NICU Weight (g) Sex Living Outcome Pediatric Complications Fetus ID Race Codes Race Delivery Type F [id number] Camilo Calculation Initial Camilo Date Initial Exam [...]
--- OUTSIDE RECORDS SUMMARY | 2024-06-18 12:44 | XMS_ITS | Clinical Summary ---
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 Name Role Phone Almita Rizzo RN Unavailable [phone] Beth Fernandez MD Unavailable [phone] Maday Oviedo MD Unavailable [phone] Tomasz Scott DO Unavailable [phone] No, Physician Primary Care Provider Meir Nazario MD Unavailable [phone] Allergies Active Allergy Reactions Criticality Noted Date Comments Ibuprofen Stomach upset Low 04/20/2017 Metronidazole Itching,Rash,Hives Medium 04/21/2017 Omeprazole Rash Medium 04/21/2017 Medications hydrALAZINE (APRESOLINE) 100 mg tabletIndications: hypertension Take 1 tablet (100 mg total) by mouth 2 (two) times a day Active insulin glargine (LANTUS) 100 unit/mL vial for injectionIndicatio ns:DM 2 Inject 10 Units under the skin nightly Active lisinopriL (PRINIVIL,ZESTRIL) 20 mg tabletIndications: hypertension Take 1 tablet (20 mg total) by mouth 2 (two) times a day Active triamcinolone (KENALOG) 0.1 % creamIndications:s kin rash Apply 1 g topically 2 (two) times a day HAND RASH 03/05/19 23 Active labetaloL (NORMODYNE,TRANDAT E) 300 mg tabletIndications: hypertension Take 1 tablet (300 mg total) by mouth 2 (two) times a day 03/05/19 23 Active aspirin 81 mg enteric coated tabletIndications: prevention of thrombosis Take 1 tablet (81 mg total) by mouth every morning Picking up all new prescriptions today-she will pick this up later today 05/06. Active oxyCODONE-acetamin ophen (PERCOCET) 5-325 mg per tabletIndications: Pain Take 1 tablet by mouth every 4 (four) hours as needed for pain 20 tablet 05/09/19 23 Active Additional Information Patient not taking.Reported on 06/24/2023 insulin aspart (NovoLOG) 100 unit/mL (3 mL) pen for injection Inject 20 Units under the skin 2 (two) times a day after breakfast and dinner Active lactulose solution 10 gram/15mL daily as needed (CONSTIPATION) Active atorvastatin (LIPITOR) 80 mg tablet Take 1 tablet (80 mg total) by mouth daily 06/12/19 23 Active cholecalciferol (VITAMIN D-3) 5,000 unit tablet Take 1 tablet (5,000 Units total) by mouth daily 07/29/19 23 Active calcium acetate,phosphat bind, (PHOSLO) 667 mg capsule TAKE 2 CAPSULES BY MOUTH WITH EACH MEAL Active oxyCODONE (ROXICODONE) 5 mg immediate release tabletIndications: Pain Take 1 tablet (5 mg total) by mouth every 4 (four) hours as needed for pain for up to 10 doses 10 tablet 12/01/19 24 Active gabapentin (NEURONTIN) 100 mg capsuleIndications :Neuropathic Pain Take 2 capsules (200 mg total) by mouth 3 (three) times a day 90 capsule 12/01/19 24 025 Active rOPINIRole (REQUIP) 0.5 mg tabletIndications: Restless Legs Syndrome Take 1 tablet (0.5 mg total) by mouth 3 (three) times a day as needed (restless legs) for up to 30 doses 30 tablet 12/01/19 24 Active gabapentin (NEURONTIN) 100 mg capsule Take 2 capsules (200 mg total) by mouth 3 (three) times a day 60 capsule 12/01/19 24 Active rOPINIRole (REQUIP) 0.5 mg tabletIndications: Restless Legs Syndrome Take 1 tablet (0.5 mg total) by mouth nightly at bedtime. 30 tablet 12/01/19 24 Active albuterol HFA (PROVENTIL HFA,VENTOLIN HFA,PROAIR HFA) 90 mcg/actuation inhaler Inhale 2 puffs every 4 (four) hours as needed for wheezing 6.7 g 01/08/20 24 Active benzonatate (TESSALON) 100 mg capsuleIndications :Cough Take 1 capsule (100 mg total) by mouth 3 (three) times a day as needed for cough 15 capsule 01/08/20 24 Active HYDROcodone-acetam inophen (NORCO) 5-325 mg per tabletIndications: Pain Take 1 tablet by mouth every 6 (six) hours as needed for pain for up to 5 doses 5 tablet 04/06/19 25 Active lidocaine (LIDODERM) 5 % Place 1 patch on the skin daily Remove & discard patch within 12 hours or as directed by MD. 5 patch 04/06/19 25 Active ondansetron ODT (ZOFRAN-ODT) 4 mg disintegrating tablet Take 1 tablet (4 mg total) by mouth every 8 (eight) hours as needed for nausea or vomiting 20 tablet 06/15/19 25 Active polyethylene glycol (MIRALAX) 17 gram/dose bulk powderIndications: Bowel Evacuation Take 17 g by mouth daily 510 g 06/15/19 25 Active Active Problems Problem Noted Date Diagnosed Date Screening for colorectal cancer 07/08/2023 Pre-transplant evaluation for kidney transplant 07/08/2023 Pain of left upper extremity 06/24/2023 Encounter for surgical after care following surgery of circulatory system 07/04/2022 Ovarian mass 04/10/2022 Overview (04/10/2022): Added automatically from request for surgery [id number] Hypertension 2021 Stage 5 chronic kidney disease [...] Encounters Date Type Department Care Team Description 06/14/2024 6:45 PM CDT - 06/14/2024 8:32 PM CDT Emergency [facility] [address] [place] [id number] Constipation, unspecified constipation type (Primary Dx); Abdominal pain; Anasarca Discharge Disposition: Discharge to home or self care 05/27/2024 10:00 AM CDT - 05/27/2024 11:59 PM CDT Hospital Encounter [address] [address] Pre-kidney transplant, patient on transplant list; ESRD (end stage renal disease) (HCC) Discharge Disposition: Discharge to home or self care 05/17/2024 Telephone [facility] Transplant Kidney [address] [facility] [address] [phone] [place] [address] Almita Rizzo RN Waitlist Maintenance 04/29/2024 Telephone [facility] Transplant Kidney [address] [facility] [address] [phone] [place] [address] Hien Mireles 04/29/2024 Telephone [facility] Transplant Kidney [address] [facility] [address] [phone] [place] [address] Suad Hou 04/11/2024 Telephone [facility] Transplant Kidney [address] [facility] [address] [phone] [place] [address] Almita Rizzo RN Waitlist Maintenance 04/06/2024 11:14 AM ROASTER HELPER - 04/06/2024 12:22 PM [facility] Emergency [facility] Department [address] [place] [id number] Lavon Castaneda MD Pain of left upper extremity (Primary Dx) Discharge Disposition: Discharge to home or self care 03/29/2024 10:00 AM ROASTER HELPER - 03/29/2024 11:59 PM ROASTER HELPER Hospital Encounter [facility] [address] [place] [address] Pre-transplant evaluation for kidney transplant; ESRD (end stage renal disease) ([facility]) Discharge Disposition: Discharge to home or self care 03/22/2024 Documentation [facility] Transplant Kidney [address] [facility] [address] [phone] [place] [address] Almita Rizzo RN Waitlist Maintenance from Last 3 Months Immunizations Immunization Administration [...] making you feel afraid or unsafe? Denies 06/14/2024 Comments No Sex and Gender Information Value Date Recorded Sex Assigned at Not on file Legal Sex Female 11:50 PM ROASTER HELPER Gender Identity Not on file Sexual Orientation Not on file Obstetrics History Para Term AB IAB SAB Ectopic Multiple Livin g Live Births 3 3 2 Date Outcome GA Total Labor Labor//3rd Weight Sex Type Anes PTL Yris A1 A5 Name Clin Para Para Para Last Filed Vital Signs Vital Sign Reading Time Taken Comments Blood Pressure 212/99 06/14/2024 8:00 PM CDT Pulse 87 06/14/2024 8:05 PM CDT Temperature 37 C (98.6 F) 06/14/2024 4:30 PM CDT Respiratory Rate 20 06/14/2024 7:00 PM CDT Oxygen Saturation 100% 06/14/2024 8:05 PM CDT Inhaled Oxygen Concentration - - Weight 96.6 kg (212 lb 15.4 oz) 06/14/2024 4:30 PM CDT Height 160 cm (5' 3) 06/14/2024 4:30 PM CDT Body Mass Index 37.72 06/14/2024 4:30 PM CDT Plan of Treatment Health Maintenance Due Date Last Done Comments Albumin Creatinine Ratio, Urine 1978 Cervical Cancer Screening 1978 Depression Screening 1978 Dilated Eye Exam 1978 Foot Exam 1978 Regular Well Visit/Exam 18-64 1996 Lipid Panel 04/30/2022 04/30/2021, 05/22/2018 Breast Cancer Screening-Mammogram 03/19/2024 03/19/2023, 03/17/2023, 06/04/2021 Hemoglobin A1C 08/16/2024 02/16/2024, 12/0 09/2022, 05/23/2022, Additional history exists eGFR 06/14/2025 06/14/2024, 03/26, 02/16/2024, Additional history exists DTaP/Tdap/Td Vaccine (2 - Td or Tdap) 07/10/2027 07/09/2017 Colon Cancer Screening-Colonoscopy 07/20/2033 07/21/2023 Pneumococcal vaccine <65 Completed 024, 04/18/2021, 04/18/2021, Additional history exists Influenza Vaccine Completed 11/27/2023, , 12/27/2021 Hepatitis B Screening Completed 02/16/2024 , 2023, 10/06/2022, Additional history exists Hepatitis C Screening Completed 02/16/2024 , 01/30/2023, 04/30/2021 HPV Vaccines Aged Out No longer eligi ble based on patient's age to complete this topic Medical Devices Implanted Type Area Gallery Assistant Device Identifier Shelf Expiration Date Model / Serial / Lot [employer] [id number] [place] 15fr 62cm 2 Cuff Radiopaque Peritoneal Curl Catheter - Sn/A - [id number] Implanted:Qty : 1 on 03/14/2021 by Gildardo Leggett MD at [facility] Catheter N/A: Abdomen [employer] 07/01/2025 [id number] / N/A / [id number] Description:Peritoneal Dialy sis Catheter, Curl Cath, 2 Cuffs Graft Vasc 45cm 4-6mm [place] Acuseal Eptfe 3 Layer Kink Rst - [id number] - [id number] Implanted:Qty : 1 on 05/08/2022 by Uche Katz MD at [facility] Graft Left: Arm [employer]l [employer] [id number] 05/21/2024 [id number] / [id number] / 00 Procedures Procedure Name Priority Date/Time Associated Diagnosis Comments CT ABDOMEN PELVIS W CONTRAST ED 06/14/2024 6:15 PM CDT POCT HCG, URINE Routine 06/14/2024 5:13 PM CDT URINALYSIS, MICROSCOPIC ONLY STAT 06/14/2024 4:49 PM CDT URINALYSIS AND REFLEX TO MICROSCOPIC AND CULTURE STAT 06/14/2024 4:49 PM CDT EGFR STAT 06/14/2024 4:36 PM CDT DIFFERENTIAL AUTO STAT 06/14/2024 4:3 6 PM CDT LIPASE STAT 06/14/2024 4:36 PM CDT COMPREHENSIVE METABOLIC PANEL STAT 06/14/2024 4:36 PM CDT CBC WITH AUTO DIFFERENTIAL STAT 06/14/2024 4:36 PM CDT HLA ANTIBODY SCREEN - SAB (CLASS I AND CLASS II) Routine 05/27/2024 10:00 AM CDT Pre-kidney transplant, patient on transplant list ESRD (end stage renal disease) (HCC) HLA ANTIBODY SCREEN BY PRA OR SAB PER SCHEDULE (CLASS I AND CLASS II) Routine 05/27/2024 10:00 AM CDT Pre-kidney transplant, patient on transplant list ESRD (end stage renal disease) (HCC) TROPONIN T HIGH-SENSITIVITY 2-HOUR Timed 04/06/2024 11:12 AM ROASTER HELPER XR SHOULDER LEFT 2 OR MORE VIEWS ED 04/06/2024 8:55 AM ROASTER HELPER XR CHEST 1 VIEW ED 04/06/2024 8:55 AM ROASTER HELPER EGFR STAT 04/06/2024 8:24 AM ROASTER HELPER DIFFERENTIAL AUTO STAT 04/06/2024 8:2 4 AM ROASTER HELPER HCG, BLOOD, QUANTITATIVE STAT 04/06/2024 8:24 AM ROASTER HELPER TROPONIN T HIGH-SENSITIVITY SERIES (BASELINE, 2HR, 4HR, 6HR) STAT 04/06/2024 8:24 AM ROASTER HELPER BASIC METABOLIC PANEL STAT 04/06/2024 8:24 AM ROASTER HELPER CBC WITH AUTO DIFFERENTIAL STAT 04/06/2024 8:24 AM ROASTER HELPER ECG 12-LEAD STAT 04/06/2024 8:18 AM ROASTER HELPER HLA ANTIBODY SCREEN - SAB (CLASS I AND CLASS II) Routine 03/29/2024 10:00 AM ROASTER HELPER Pre-transplant evaluation for kidney transplant ESRD (end stage renal disease) (HCC) HLA ANTIBODY SCREEN BY PRA OR SAB PER SCHEDULE (CLASS I AND CLASS II) Routine 03/29/2024 10:00 AM ROASTER HELPER Pre-transplant evaluation for kidney transplant ESRD (end stage renal disease) (HCC) HEPATITIS C ANTIBODY Routine 02/16/2024 11:34 AM ROASTER HELPER Pre-kidney transplant, patient on transplant list ESRD (end stage renal disease) (HCC) HEMOGLOBIN A1C Routine 02/16/2024 11:34 AM ROASTER HELPER Pre-kidney transplant, patient on transplant list ESRD (end stage renal disease) (HCC) COLONOSCOPY 07/21/2023 10:23 AM CDT HM MAMMOGRAPHY Routine 06/04/2021 LIPID PANEL Routine 04/30/2021 12:22 PM ROASTER HELPER Pre-transplant evaluation for kidney transplant End stage renal disease (HCC) from Last 3 Months or Most Recently Relevant to Health Maintenance Results * CT Abdomen Pelvis W Contrast (06/14/2024 6:15 PM CDT) Anatomical Region Laterality Modality Body N/A Computed Tomogra phy 06/14/2024 6:21 PM CDT Narrative 06/14/2024 6:28 PM CDT EXAM DESCRIPTION: CT ABDOMEN PELVIS W CONTRAST REASON FOR STUDY: Bowel obstruction suspected, Abdominal pain, acute, nonlocalized arrives by EMS from home. Pt c/o abd pain and constipation since Sat. Last BM over 1 wk ago and states not passing gas. Pt denies vomiting. Pt states using stool softner but not working. Pt is also a peritoneal dialysis pt. Pt states getting dialysis tonight TECHNIQUE: CT scan of the abdomen and pelvis performed with intravenous and without oral contrast using helical scanning technique with dynamic intravenous contrast injection. Reconstructed coronal and sagittal MPR images reviewed. All images stored on PACS. Automated exposure control was used as a dose optimization technique for this examination. CONTRAST TYPE/DOSE: 100mL of IOVERSOL 350 MG IODINE/ML INTRAVENOUS SYRINGE injected via intravenous COMPARISON: 04/30/2021 FINDINGS: LOWER CHEST: There are subtle interstitial infiltrates with thickening of the interlobular septi at the lung bases suggesting mild pulmonary edema. Small bilateral pleural effusions. LIVER: Normal size. No identified cystic or solid masses. GALLBLADDER: Surgically absent. BILE DUCTS: No intrahepatic or extrahepatic ductal dilatation. SPLEEN: Normal size. No focal lesions. PANCREAS: No identified cystic or solid masses. No significant calcifications. No adjacent inflammation or peripancreatic fluid collections. Pancreatic duct not dilated. ADRENALS: Normal. KIDNEYS/URINARY TRACT: No identified significant cystic or solid masses. No visualized stones. No hydronephrosis or hydroureter. Symmetric enhancement. Bilateral renal atrophy. Urinary bladder is unremarkable. GI: No dilated bowel loops. No obvious wall thickening. Appendix is not visualized. No significant diverticular disease. PERITONEUM: Small volume ascites. Peritoneal dialysis catheter tip in the right lower quadrant. RETROPERITONEUM: No mass or adenopathy. REPRODUCTIVE: No significant abnormality. VASCULATURE: Atherosclerotic disease in the aorta and iliacs extensive mesenteric vascular calcification including bilateral renal vascular calcification. MUSCULOSKELETAL: No significant abnormality. OTHER: Anasarca. IMPRESSION: Subtle interstitial infiltrates with thickening of the interlobular septi at the lung bases suggesting mild pulmonary edema. Small bilateral pleural effusions. Surgical absence of the gallbladder. Bilateral renal atrophy. Small volume ascites. Peritoneal dialysis catheter tip in the right lower quadrant. Anasarca. THIS IS AN ELECTRONICALLY VERIFIED FINAL REPORT 06/14/2024 6:28 PM - Electronically signed by Albert Tovar M.D. KT: VIRIDIANA Report ID: [id number] Reading Location: [id number] Procedure Note Albert Tovar MD - 06/14/2024 EXAM DESCRIPTION: CT ABDOMEN PELVIS W CONTRAST REASON FOR STUDY: Bowel obstruction suspected, Abdominal pain, acute, nonlocalized arrives by EMS from home. Pt c/o abd pain and constipation since Sat. LastBM over 1 wk ago and states not passing gas. Pt denies vomiting. Pt statesusing stool softner but not working. Pt is also a peritoneal dialysis pt. Pt states getting dialysis tonight TECHNIQUE: CT scan of the abdomen and pelvis performed with intravenousand without oral contrast using helical scanning technique with dynamic intravenous contrast injection. Reconstructed coronal and sagittal MPRimages reviewed. All images stored on PACS. Automated exposure control was usedas a dose optimization technique for this examination. CONTRAST TYPE/DOSE: 100mL of IOVERSOL 350 MG IODINE/ML INTRAVENOUSSYRINGE injected via intravenous COMPARISON: 04/30/2021 FINDINGS: LOWER CHEST: There are subtle interstitial infiltrates with thickening of the interlobular septi at the lung bases suggesting mild pulmonary edema. Small bilateral pleural effusions. LIVER: Normal size. No identified cystic or solid masses. GALLBLADDER: Surgically absent. BILE DUCTS: No intrahepatic or extrahepatic ductal dilatation. SPLEEN: Normal size. No focal lesions. PANCREAS: No identified cystic or solid masses. No significant calcifications. No adjacent inflammation or peripancreatic fluidcollections. Pancreatic duct not dilated. ADRENALS: Normal. KIDNEYS/URINARY TRACT: No identified significant cystic or solid masses.No visualized stones. No hydronephrosis or hydroureter. Symmetricenhancement. Bilateral renal atrophy. Urinary bladder is unremarkable. GI: No dilated bowel loops. No obvious wall thickening. Appendix is not visualized. No significant diverticular disease. PERITONEUM: Small volume ascites. Peritoneal dialysis catheter tip inthe right lower quadrant. RETROPERITONEUM: No mass or adenopathy. REPRODUCTIVE: No significant abnormality. VASCULATURE: Atherosclerotic disease in the aorta and iliacs extensive mesenteric vascular calcification including bilateral renal vascular calcification. MUSCULOSKELETAL: No significant abnormality. OTHER: Anasarca. IMPRESSION: Subtle interstitial infiltrates with thickening of the interlobular septiat the lung bases suggesting mild pulmonary edema. Small bilateral pleural effusions. Surgical absence of the gallbladder. Bilateral renal atrophy. Small volume ascites. Peritoneal dialysis catheter tip in the right lower quadrant. Anasarca. THIS IS AN ELECTRONICALLY VERIFIED FINAL REPORT 06/14/2024 6:28 PM - Electronically signed by Albert Tovar M.D. KT: KT Report ID: [id number] Reading Location: [place] [address] PROCEDURES Final Resu lt * POCT hCG, urine (06/14/2024 5:13 PM CDT) HCG, ur, POC Negative Negative Lot Number [id number] QC Backgroud Clear Acceptable QC Control Line Acceptable Urine 06/14/2024 5:13 PM CDT Raisa RAPHAEL POINT OF CARE TEST ORDERABLE S Final Result * (ABNORMAL) Urinalysis reflex to microscopic and culture Urine (06/14/2024 4:49 PM CDT) Color, ur Straw Yellow Comment:Testing performed by : [address] [address] Clarity, ur Clear Clear DENNIS Comment:Testing performed by : [address] [address] Specific gravity, ur 1.008 1.003 - 1.030 DENNIS Comment:Testing performed by : [address] [address] pH, urine 8.0 DENNIS Comment: Interpretive Data U rine pH is affected by diet, medications, systemic acid-base disturbances, and renal tubular function. pH may affect urinary stone formation. For example, urine pH below 6.0 may help reduce the tendency for calcium phosphate stones and pH greater than 6.0 may reduce the tendency for uric acid stone formation. Source: [employer] Current Interpretive Data was last revised on 2017 Testing performed by: [address] [address] Protein, ur ql 2+(A) Negative DENNIS Comment:Testing performed by : [place] [address], [place]., [address] Glucose, ur ql 3+(A) Negative DENNIS JOSUE Comment:Testing performed by : [address], [place]., [address] Ketones, ur Negative Negative DENNIS Comment:Testing performed by : [address], [place]., [address] Bilirubin, ur Negative Negative DENNIS Comment:Testing performed by : [address], [place]., [address] Blood, ur 2+(A) Negative DENNIS JOSUE Comment:Testing performed by : [address], [place]., [address] Urobilinogen, ur <2.0 <2.0 mg/dL DENNIS JOSUE Comment:Testing performed by : [address], [place]., [address] Nitrite, ur Negative Negative DENNIS JOSUE Comment:Testing performed by : [address], [place]., [address] Leukocyte esterase, ur Negative Negative DENNIS Comment:Testing performed by : [address], [place]., [address] UA reflex comment Reflex to microscopic UA will be performed. DENNIS Comment:Testing performed by : [address], [place]., [address] Urine 06/14/2024 4:49 PM CDT 06/14/2024 4:53 PM CDT us Raisa RAPHAEL LAB MICROBIOLOGY - GENERAL O RDERABLES Final Result DENNIS [address] [facility] [place] [address] * (ABNORMAL) Urinalysis, microscopic only (06/14/2024 4:49 PM CDT) WBC, ur 0-5 0 - 5 /HPF Comment:Testing performed by : [address], [place]., [address] RBC, ur 0-2 0 - 2 /HPF DENNIS JOSUE Comment:Testing performed by : [facility], [address] [place] [address]., [address] Epithelial cells, squamous, ur >50(A) 0 - 5 /HPF DENNIS Comment:Testing performed by : [address] [address] Culture Reflex Comment Reflex conditions for urine culture (WBC >10) not met. DENNIS Comment:Testing performed by : [address] [address] Urine 06/14/2024 4:49 PM CDT 06/14/2024 4:53 PM CDT us Raisa RAPHAEL LAB URINE ORDERABLES Final R esult DENNIS JOSUE [facility] [place] [address] * (ABNORMAL) eGFR (06/14/2024 4:36 PM CDT) eGFR 4(L) >=60 mL/min/1. 73 m2 Comment: [...] was last reviewed 2020. Testing performed by: [address] [address] Blood 06/14/2024 4:36 PM CDT 06/14/2024 4:42 PM CDT us Raisa RAPHAEL LAB BLOOD ORDERABLES Final R esult DENNIS [address] [facility] [place] [address] * Differential, auto (06/14/2024 4:36 PM CDT) Neutrophil abs 6.50 1.50 - 6.50 K/cumm Comment:Testing performed by : [address] [address] Imm gran abs 0.04 0.00 - 0.10 K/cumm DENNIS Comment:Testing performed by : [address] [address] Lymphocyte abs 1.95 0.80 - 3.30 K/cumm DENNIS Comment:Testing performed by : [address] [address] Monocyte abs 0.60 0.20 - 0.80 K/cumm DENNIS Comment:Testing performed by : [address] [address] Eosinophil abs 0.31 0.00 - 0.50 K/cumm DENNIS Comment:Testing performed by : [address] [address] Basophil abs 0.06 0.00 - 0.10 K/cumm DENNIS Comment:Testing performed by : [address] [address] Neutrophil pct 68.8 % DENNIS Comment: Interpretive Data Percent cell count reference ranges are not reported, since discordance with absolute values may lead to misinterpretation of CBC data. Current Interpretive Data was last revised on 2017. Testing performed by: [address] [address] Imm gran pct 0.4 % DENNIS Comment: Interpretive Data Percent cell count reference ranges are not reported, since discordance with absolute values may lead to misinterpretation of CBC data. Current Interpretive Data was last revised on 2017. Testing performed by: [address] [address] Lymphocyte pct 20.6 % [facility] Comment: Interpretive Data Percent cell count reference ranges are not reported, since discordance with absolute values may lead to misinterpretation of CBC data. Current Interpretive Data was last revised on 2017. Testing performed by: [address] [address] Monocyte pct 6.3 % [facility] Comment: Interpretive Data Percent cell count reference ranges are not reported, since discordance with absolute values may lead to misinterpretation of CBC data. Current Interpretive Data was last revised on 2017. Testing performed by: [address] [address] Eosinophil pct 3.3 % [facility] Comment: Interpretive Data Percent cell count reference ranges are not reported, since discordance with absolute values may lead to misinterpretation of CBC data. Current Interpretive Data was last revised on 2017. Testing performed by: [address] [address] Basophil pct 0.6 % [facility] Comment: Interpretive Data Percent cell count reference ranges are not reported, since discordance with absolute values may lead to misinterpretation of CBC data. Current Interpretive Data was last revised on 2017. Testing performed by: [address] [address] Blood 06/14/2024 4:36 PM CDT 06/14/2024 4:42 PM CDT us Raisa RAPHAEL LAB BLOOD ORDERABLES Final R esult [facility] [address] [facility] [place] [address] * (ABNORMAL) CBC with auto differential (06/14/2024 4:36 PM CDT) WBC 9.46 3.80 - 9.90 K/cumm Comment:Testing performed by : [address] [address] Hgb 9.3(L) 11.9 - 15.5 g/dL DENNIS Comment:Testing performed by : [address] [address] Hct 30.1(L) 35.6 - 45.5 % DENNIS Comment:Testing performed by : [address] [address] Plt 325 150 - 400 K/cumm DENNIS Comment:Testing performed by : [address] [address] MPV 9.1 9.1 - 12.3 fL DENNIS Comment:Testing performed by : [address] [address] RBC 3.59(L) 3.90 - 5.20 M/cumm DENNIS Comment:Testing performed by : [address] [address] MCV 83.8 81.3 - 96.4 fL DENNIS Comment:Testing performed by : [address] [address] MCH 25.9(L) 27.1 - 33.3 pg DENNIS Comment:Testing performed by : [address] [address] MCHC 30.9(L) 32.3 - 35.7 g/dL DENNIS Comment:Testing performed by : [address] [address] RDW CV 15.0(H) 11.1 - 14.9 % DENNIS Comment:Testing performed by : [address] [address] RDW SD 45.9 35.7 - 48.1 fL DENNIS Comment:Testing performed by : [address] [address] NRBC abs 0.00 0.00 - 0.01 K/cumm DENNIS Comment:Testing performed by : [address] [address] Blood 06/14/2024 4:36 PM CDT 06/14/2024 4:42 PM CDT Raisa RAPHAEL LAB BLOOD ORDERABLES Final R esult Performing Organization Address City/[facility]/ZIP Co de Phone Number DENNIS [facility] [place] [address] * Lipase (06/14/2024 4:36 PM CDT) Pathologist [facility] Lipase 49 10 - 99 Units/L Comment: Hemolyzed; result might be falsely decreased Testing performed by: [address] [address] Blood 06/14/2024 4:36 PM CDT 06/14/2024 4:42 PM CDT us Raisa RAPHAEL LAB BLOOD ORDERABLES Final R esult Performing Organization Address [facility] Co de Phone Number DENNIS [address] [place] [address] * (ABNORMAL) Comprehensive metabolic panel (06/14/2024 4:36 PM CDT) Pathologist [facility] Sodium 139 135 - 145 mmol/L Comment:Testing performed by : [address] [address] Potassium, pl 4.5 3.3 - 4.9 mmol/L DENNIS Comment: Hemolyzed; Potassium value may be falsely elevated by as much as 1.0 mmol/L. Suggest redraw and reanalysis. Testing performed by: [address] [address] Chloride 101 97 - 110 mmol/L DENNIS Comment:Testing performed by : [address] [address] CO2 26 22 - 32 mmol/L DENNIS Comment:Testing performed by : [address] [address] Anion gap 12 2 - 15 mmol/L DENNIS Comment:Testing performed by : [address] [address] BUN 50(H) 6 - 25 mg/dL DENNIS Comment:Testing performed by : [address] [address] Creatinine 11.80(H) 0.60 - 1.10 mg/dL DENNIS Comment:Testing performed by : [address] [address] Glucose 179 70 - 199 mg/dL [facility] Comment: Interpretive Data Fasting glucose >/= [...] was last revised 2022. Testing performed by: [address] [address] Calcium 8.6 8.5 - 10.3 mg/dL [facility] Comment:Testing performed by : [address] [address] Bilirubin, total <0.2 0.1 - 1.2 mg/dL DENNIS Comment:Testing performed by : [address] [address] Protein, pl 6.5 6.5 - 8.5 g/dL DENNIS Comment:Testing performed by : [address] [address] Albumin 2.3(L) 3.5 - 5.0 g/dL [facility] Comment:Testing performed by : [address] [address] Alk phos 170(H) 40 - 130 Units/L DENNIS Comment:Testing performed by : [address] [address] ALT NOTE 7 - 45 Units/L DENNIS Comment: Credited; Hemolyzed Specimen Testing performed by: [address] [address] AST 24 10 - 45 Units/L [facility]VONNEAR[facility]ELY Comment: Hemolyzed; result may be falsely elevated Testing performed by: [facility], [address] [place] [address]., [address] Blood 06/14/2024 4:36 PM CDT 06/14/2024 4:42 PM CDT us Raisa RAPHAEL LAB BLOOD ORDERABLES Final R esult DENNIS [address] [facility] [place] [address] * HLA Antibody Screen by PRA or SAB per Schedule (Class I and Class II) (05/27/2024 10:00 AM CDT) Blood 05/27/2024 10:0 0 AM CDT Narrative HISTOTRAC - ROASTER HELPER Sample received in lab. Single Antigen Antibody Screen ordered. us Miriam Garner MD LAB BLOOD ORDERAB LES Final Result HISTOTRAC * HLA Antibody Screen - SAB (Class I and Class II) (05/27/2024 10:00 AM CDT) Pathologist [facility] Class I Treatment EDTA HISTOTRAC Class I Dilution 1:1 HISTOTRAC Class I Tested Date 05/31/2024 HISTOTRAC Class I Result Positive HISTOTRAC Class I CPRA 88 HISTOTRAC Class I Increased Risk A11, A43; Cw8 HISTOTRAC Class I Moderate Risk A25, A66; B7, B27, B46, B67, B73; Cw1, Cw7, Cw9, Cw10, Cw12, Cw14, Cw16 HISTOTRAC Class I Low Risk A26; B39, B42, B48, B55, B56, B60, B61, B76, B81, B82 HISTOTRAC Class I Reportable Comments Bw6 pattern is present. HISTOTRAC Class II Treatment EDTA HISTOTRAC Class II Dilution 1:1 HISTOTRAC Class II Tested Date 05/31/2024 HISTOTRAC Class II Result Positive HISTOTRAC Class II CPRA 69 HISTOTRAC Class II Moderate Risk DR4, DR7, DR9, DR12, DR16, DR53; DPB1*01:01, DPB1*05:01, DPB1*11:01, DPB1*13:01, DPB1*14:01 HISTOTRAC Class II Low Risk DR1, DR4; DQ5, DQ6; DPB1*03:01, DPB1*06:01, DPB1*09:01, DPB1*10:01, DPB1*13:01, DPB1*17:01, DPB1*19:01, DPB1*20:01 HISTOTRAC Class II Reportable Comments Allelic antibody not listed: DRB1*15:01, DRB1*15:02, DRB3*01:01, DRB3*03:01 (alloantibod y, moderate risk), patient is DRB1*15:03, DRB3*02:02 per SSO. Allelic antibody not listed: DRB1*15:03, DRB3*02:02 (autoantibod y), patient is DRB1*15:03, DRB3*02:02 per SSO. HISTOTRAC 05/27/2024 10:0 0 AM CDT 06/01/2024 12:32 PM CDT Narrative HISTOTRAC - 06/01/2024 12:32 PM CDT Single-antigen HLA antibody screen is performed on serum samples using a method developed and validated by the [facility] HLA laboratory based on an FDA-approved IVD kit (LABScreen Single-Antigen, [employer], [place], [place]). All patient serum samples are pretreated with EDTA before the screen to prevent complement interference. Additional serum treatments, such as adsorption and DTT treatment, may be performed as indicated. Interpretive comments: Low risk: MFI [id number]. Moderate risk: MFI [id number]. Increased risk: MFI >/= 5000. The presence [...] antigens to avoid. Testing performed at the [facility], [address] [place] [address], 5th floor, [place], [address]. CLIA # [id number]. Amber Berry, Ph.D., Drying Room Attendant, HLA Laboratory Jonathan Brennan M.D., Ph.D., Respite Coordinator, HLA Laboratory Rehana Alarcon, Ph.D., CLIA Respite Coordinator, [facility] Current methodology and interpretive comments last revised on 03/20/2022. Miriam Garner MD LAB BLOOD ORDERAB LES Final Result HISTOTRAC * (ABNORMAL) Troponin T high-sensitivity 2-hour (04/06/2024 11:12 AM ROASTER HELPER) Trop T hs 195(H) <=14 ng/L Comment: Interpretive Data For further hscTnT resources including the diagnostic algorithm and an aid in interpretation, copy and paste this link: https://nrl.testcatalog.org/show/hsTrop Current Interpretive Data last revised 2020. Testing performed by: [facility], [address] [place] [address]., [address] Trop T hs pct delta -3 % DENNIS Comment:Testing performed by : [facility], [address] [place] [address]., [address] Trop T hs interp Insignificant DENNIS JOSUE Comment:Testing performed by : [facility], [address] [place] [address], [place]., [address] Blood 04/06/2024 11:1 2 AM ROASTER HELPER 04/06/2024 11:21 AM ROASTER HELPER us Lavon Castaneda MD LAB BLOOD ORDERABLE S Final Result DENNIS [address] [facility] Department [place] [address] * XR Chest 1 Vw Portable (04/06/2024 8:55 AM ROASTER HELPER) Anatomical Region Laterality Modality Body, Chest N/A Computed Radiogr aphy 04/06/2024 9:06 AM ROASTER HELPER Narrative 04/06/2024 9:06 AM ROASTER HELPER EXAM DESCRIPTION: XR CHEST 1 VIEW REASON [...] Albert Lopes M.D. KR: CECI Report ID: [id number] Reading Location: [id number] Procedure Note Albert Lopes MD - 04/06/2024 [...] Albert Lopes M.D. KR: CECI Report ID: [id number] Reading Location: [id number] Lavon Castaneda MD IMG XR PROCEDURES F inal Result * XR Shoulder Left 2 or More Views (04/06/2024 8:55 AM ROASTER HELPER) Anatomical Region Laterality Modality Upper Extremities, Shoulder Left Comp uted Radiography 04/06/2024 9:06 AM ROASTER HELPER Narrative 04/06/2024 9:07 AM ROASTER HELPER EXAM DESCRIPTION: XR SHOULDER LEFT 2 OR [...] Albert Lopes M.D. KR: CECI Report ID: [id number] Reading Location: [id number] Procedure Note Albert Lopes MD - 04/06/2024 [...] Albert Lopes M.D. KR: CECI Report ID: [id number] Reading Location: [id number] us Lavon Castaneda MD IMG XR PROCEDURES F inal Result * (ABNORMAL) Troponin T high-sensitivity series (baseline, 2hr, 4hr, 6hr) (04/06/2024 8:24 AM ROASTER HELPER) Trop T hs 200(H) <=14 ng/L Comment: Interpretive Data For further hscTnT resources including the diagnostic algorithm and an aid in interpretation, copy and paste this link: https://nrl.testcatalog.org/show/hsTrop Current Interpretive Data last revised 2020. Testing performed by: [facility], [address] [place] [address]., [address] Blood 04/06/2024 8:24 AM ROASTER HELPER 04/06/2024 8:33 AM ROASTER HELPER us Lavon Castaneda MD LAB BLOOD ORDERABLE S Edited Result - Final YVONNEJMH [address] [facility] Department [place] [address] * (ABNORMAL) eGFR (04/06/2024 8:24 AM ROASTER HELPER) eGFR 3(L) >=60 mL/min/1. 73 m2 Comment: [...] was last reviewed 2020. Testing performed by: [address] [address] Blood 04/06/2024 8:24 AM ROASTER HELPER 04/06/2024 8:33 AM ROASTER HELPER us Lavon Castaneda MD LAB BLOOD ORDERABLE S Final Result DENNIS [address] [facility] Department [place] [address] * (ABNORMAL) Differential, auto (04/06/2024 8:24 AM ROASTER HELPER) Neutrophil abs 3.2 1.5 - 6.5 K/cumm Comment:Testing performed by : [address] [address] Imm gran abs 0.0 0.0 - 0.1 K/cumm DENNIS Comment:Testing performed by : [address] [address] Lymphocyte abs 2.2 0.8 - 3.3 K/cumm DENNIS Comment:Testing performed by : [address] [address] Monocyte abs 0.4 0.2 - 0.8 K/cumm DENNIS Comment:Testing performed by : [address] [address] Eosinophil abs 0.6(H) 0.0 - 0.5 K/cumm DENNIS Comment:Testing performed by : [address] [address] Basophil abs 0.1 0.0 - 0.1 K/cumm DENNIS Comment:Testing performed by : [address] [address] Neutrophil pct 49.0 % DENNIS Comment: Interpretive Data Percent cell count reference ranges are not reported, since discordance with absolute values may lead to misinterpretation of CBC data. Current Interpretive Data was last revised on 2017. Testing performed by: [address] [address] Imm gran pct 0.5 % [facility] Comment: Interpretive Data Percent cell count reference ranges are not reported, since discordance with absolute values may lead to misinterpretation of CBC data. Current Interpretive Data was last revised on 2017. Testing performed by: [address] [address] Lymphocyte pct 34.0 % [facility] Comment: Interpretive Data Percent cell count reference ranges are not reported, since discordance with absolute values may lead to misinterpretation of CBC data. Current Interpretive Data was last revised on 2017. Testing performed by: [address] [address] Monocyte pct 6.6 % [facility] Comment: Interpretive Data Percent cell count reference ranges are not reported, since discordance with absolute values may lead to misinterpretation of CBC data. Current Interpretive Data was last revised on 2017. Testing performed by: [address] [address] Eosinophil pct 9.0 % [facility] Comment: Interpretive Data Percent cell count reference ranges are not reported, since discordance with absolute values may lead to misinterpretation of CBC data. Current Interpretive Data was last revised on 2017. Testing performed by: [address] [address] Basophil pct 0.9 % [facility] Comment: Interpretive Data Percent cell count reference ranges are not reported, since discordance with absolute values may lead to misinterpretation of CBC data. Current Interpretive Data was last revised on 2017. Testing performed by: [address] [address] Blood 04/06/2024 8:24 AM ROASTER HELPER 04/06/2024 8:33 AM ROASTER HELPER us Lavon Castaneda MD LAB BLOOD ORDERABLE S Final Result DENNIS [address] [facility] [place] [address] * (ABNORMAL) CBC with auto differential (04/06/2024 8:24 AM ROASTER HELPER) WBC 6.5 3.8 - 9.9 K/cumm Comment:Testing performed by : [address] [address] Hgb 10.4(L) 11.9 - 15.5 g/dL DENNIS Comment:Testing performed by : [address] [address] Hct 33.0(L) 35.6 - 45.5 % DENNIS Comment:Testing performed by : [address] [address] Plt 277 150 - 400 K/cumm DENNIS Comment:Testing performed by : [address] [address] MPV 9.6 9.1 - 12.3 fL DENNIS Comment:Testing performed by : [address] [address] RBC 3.98 3.90 - 5.20 M/cumm DENNIS Comment:Testing performed by : [address] [address] MCV 82.9 81.3 - 96.4 fL DENNIS Comment:Testing performed by : [address] [address] MCH 26.1(L) 27.1 - 33.3 pg DENNIS Comment:Testing performed by : [address] [address] MCHC 31.5(L) 32.3 - 35.7 g/dL DENNIS Comment:Testing performed by : [address] [address] RDW CV 15.8(H) 11.1 - 14.9 % DENNIS Comment:Testing performed by : [address] [address] RDW SD 47.7 35.7 - 48.1 fL DENNIS JOSUE Comment:Testing performed by : [facility], [address] [place] [address]., [address] NRBC abs 0.00 0.00 - 0.01 K/cumm DENNIS JOSUE Comment:Testing performed by : [address] [address] Blood 04/06/2024 8:24 AM ROASTER HELPER 04/06/2024 8:33 AM ROASTER HELPER Lavon Castaneda MD LAB BLOOD ORDERABLE S Final Result Performing Organization Address [facility] Co de Phone Number DENNIS [address] [facility] [employer] [place] [address] * hCG, blood, quantitative (04/06/2024 8:24 AM ROASTER HELPER) hCG, quant <5.0 0.0 - 5.0 IUnits/L Comment: Interpretive Data Male: < 5 IU/L Non- premenopausal Female: <5 IU/L The Rudy hCG Beta Quant assay procedure was used. Results from different manufacturers or methods may not be comparable. Serial testing should be performed using the same method. Interpretive Data was last revised on 2023 Testing performed by: [address] [address] Blood 04/06/2024 8:24 AM ROASTER HELPER 04/06/2024 8:33 AM ROASTER HELPER Lavon Castaneda MD LAB BLOOD ORDERABLE S Edited Result - Final Performing Organization Address [facility] Co de Phone Number [facility] [address] [facility] [place] [address] * (ABNORMAL) Basic metabolic panel (04/06/2024 8:24 AM ROASTER HELPER) Sodium 139 135 - 145 mmol/L Comment:Testing performed by : [address] [address] Potassium, pl 4.5 3.3 - 4.9 mmol/L DENNIS JOSUE Comment:Testing performed by : [address] [address] Chloride 103 97 - 110 mmol/L DENNIS Comment:Testing performed by : [address] [address] CO2 21(L) 22 - 32 mmol/L DENNIS Comment:Testing performed by : [address] [address] Anion gap 15 2 - 15 mmol/L DENNIS Comment:Testing performed by : [address] [address] BUN 54(H) 6 - 25 mg/dL DENNIS Comment:Testing performed by : [address] [address] Creatinine 13.60(H) 0.60 - 1.10 mg/dL DENNIS Comment:Testing performed by : [address] [address] Glucose 95 70 - 199 mg/dL DENNIS [...] was last revised 2022. Testing performed by: [address] [address] Calcium 9.3 8.5 - 10.3 mg/dL DENNIS Comment:Testing performed by : [address] [address] Blood 04/06/2024 8:24 AM ROASTER HELPER 04/06/2024 8:33 AM ROASTER HELPER us Lavon Castaneda MD LAB BLOOD ORDERABLE S Final Result DENNIS [address] [facility] Department [place] [address] * ECG 12 lead (04/06/2024 8:18 AM ROASTER HELPER) Ventricular Rate EKG/Min 74 BPM [facility] Atrial Rate 74 BPM [facility] [place]-Interval (MSEC) 148 ms [facility] QRS-Interval (MSEC) 70 ms [facility] QT-Interval (MSEC) 422 ms [facility] QTc 468 ms [facility] P Rowe 65 degrees [facility] R Rowe 1 degrees [facility] T Rowe 31 degrees [facility] Diagnosis Normal sinus rhythm Low voltage QRS Septal infarct , age undetermined Abnormal ECG When compared with ECG of 06-MAR-2023 10:29, No significant change was found Confirmed by MEREDITH CANO M.D. ([id number]) on 04/08/2024 7:23:12 PM [facility] 04/06/2024 8:18 AM ROASTER HELPER 04/08/2024 7:23 PM ROASTER HELPER us Lavon Castaneda MD ECG ORDERABLES Fin al Result Performing Organization Address [facility]/ZIP Co de Phone Number [facility] * HLA Antibody Screen by PRA or SAB per Schedule (Class I and Class II) (03/29/2024 10:00 AM ROASTER HELPER) Blood 03/29/2024 10:0 0 AM ROASTER HELPER Narrative HISTOTRAC - ROASTER HELPER Sample received in lab. Single Antigen Antibody Screen ordered. us Bashir Alston MD LAB BLOOD ORDERABLES Final R esult HISTOTRAC * HLA Antibody Screen - SAB (Class I and Class II) (03/29/2024 10:00 AM ROASTER HELPER) Class I Treatment EDTA HISTOTRAC Class I [...] per SSO. HISTOTRAC 03/29/2024 10:0 0 AM ROASTER HELPER 04/04/2024 10:33 AM ROASTER HELPER Narrative HISTOTRAC - 04/04/2024 10:33 AM ROASTER HELPER Single-antigen HLA antibody screen is performed on serum samples using a method developed and validated by the [facility] HLA laboratory based on an FDA-approved IVD kit (LABScreen Single-Antigen, [employer], [place], [place]). All patient serum samples are pretreated with EDTA before the screen to prevent complement interference. Additional serum treatments, such as adsorption and DTT treatment, may be performed as indicated. Interpretive comments: Low risk: MFI 7020-8821. Moderate risk: MFI 5765-8397. Increased risk: MFI >/= 5000. The presence [...] antigens to avoid. Testing performed at the [facility], [address] [place] [address], 5th floor, [place], [address]. IA # [id number]. Amber Berry, Ph.D., Drying Room Attendant, HLA Laboratory Jonathan Brennan M.D., Ph.D., Respite Coordinator, HLA Laboratory Rehana Alarcon, Ph.D., CLIA Respite Coordinator, [facility] Current methodology and interpretive comments last revised on 03/20/2022. us Bashir Alston MD LAB BLOOD ORDERABLES Edited Result - Final HISTOTRAC * Hepatitis C antibody Blood (02/16/2024 11:34 AM ROASTER HELPER) Hep C Ab Nonreactive Nonreactive Comment:Antibodies to HCV no t detected. Does NOT exclude the possibility of recent exposure to HCV. Current interpretive data was last revised on 21 Blood 02/16/2024 11:3 4 AM ROASTER HELPER 02/16/2024 11:45 AM ROASTER HELPER Tonya Hammonds MD LAB MICROBIOLOGY - GENERAL ORDERABLES Final Result Performing Organization Address [facility] Co de Phone Number DENNIS [facility] Department [place] [address] * (ABNORMAL) Hemoglobin A1c (02/16/2024 11:34 AM ROASTER HELPER) Hgb A1C 6.2(H) 4.0 - 5.6 % Estimated Average Glucose 131 mg/dL [facility] Comment: The ADA recommends reporting an estimated Average Glucose (eAG) with all Hemoglobin A1c results using the equation derived from a study of 507 normal and diabetic adults. Minority populations were underrepresented and children were not included. (Diabetes Care 2020; 43(S1): S66-S76). The eAG is not equivalent to a fasting glucose. Blood 02/16/2024 11:3 4 AM ROASTER HELPER 02/16/2024 11:45 AM ROASTER HELPER us Tonya Hammonds MD LAB BLOOD ORDERABLE S Final Result Performing Organization Address [facility] Co de Phone Number [facility] [place] [address] * Colonoscopy (07/21/2023 10:23 AM CDT) Anatomical Region Laterality Modality Other Narrative Procedure Note Early, Haritha Coronado MD - 07/21/2023 10:23 AM CDT [facility] Patient Name: Bakari Smith Procedure Date: 07/21/2023 10:23 AM Date of : 1980 Admit Type: Outpatient Age: 43 Gender: Female Attending MD: Haritha Stover M.D. Room: [facility] ENDOSCOPY ROOM 02 Note Status: Finalized [...] The scope was passed under direct vision.The [id number] Colonoscope was introducedthrough the anus and advanced to the the cecum, identifiedby appendiceal orifice and ileocecal valve. The colonoscopy was performed without difficulty. The patient tolerated the procedure well. The qualityof the bowel preparation was evaluated using the BBPS ([facility] Bowel Preparation Scale) with scores of:Right Colon [...] On: 07/21/2023 10:23 AM Recognized by the [place] [employer] for promoting quality in endoscopy Haritha Stover MD ENDOSCOPY PROCEDURES Final Res ult * HM MAMMOGRAPHY (06/04/2021) Impressions Rashida Schneider - 06/04/2021 IMPRESSION: 1. Benign mammogram. READ BY: NINO BAJWA MD 06/05/2021 Historical Provider HEALTH MAINTENANCE Final Result * Lipid panel (04/30/2021 12:22 PM ROASTER HELPER) Cholesterol 139 30 - 199 mg/dL DENNIS [facility] Comment: Interpretive Data Ages < or [...] revised on 2017. Triglycerides 64 <=149 mg/dL [facility] Comment: Interpretive Data Ages < [...] revised on 2017. HDL 70 >=40 mg/dL [facility] Comment: Interpretive Data Ages < [...] on 2017. LDL, calculated 56 <=129 mg/dL [facility] Comment: Interpretive Data Ages < [...] revised on 2017. Non-HDL Cholesterol 69 mg/dL [facility] Comment: Interpretive Data Ages < [...] DENNIS HOLT Blood 04/30/2021 12:2 2 PM ROASTER HELPER 04/30/2021 1:03 PM ROASTER HELPER us Ren Pelayo MD LAB BLOOD ORDERABLES Final Result DENNIS [facility] Department [place] [address] from Last 3 Months or Most Recently Relevant to Health Maintenance Insurance [facility] [facility] MEDICARE MEDICARE [facility] MEDICARE [facility] MEDICARE SUPPLEMENT MEDICARE [facility] MEDICARE SUPPLEMENT Advance Directives For more information, please contact: [phone] * Full Code (Latest Code Status on File) Date Activated Date Inactivated Comments 07/21/2023 9:59 AM 07/21/2023 3:56 PM Care Teams Aniline Press Worker Relationship Specialty Start Date End Date No, Physician PCP - General 02/16/24 Almita Rizzo, RN [address] [facility] [address] [place] [address] Rn Women Services 04/04/21 Beth Fernandez MD [address] [place] [address] Referring Physician Nephrology 04/04/21 Maday Oviedo MD [address] [place] [address] Neurology 09/12/22 Tomasz Scott DO [address] [place] [address] Client Director Cardiology 09/16/22 Meir Nazario MD [address] [facility] [address] [place], [place] [address] Obstetrics and Gynecology 04/11/24
--- OUTSIDE RECORDS SUMMARY | 2024-06-18 12:44 | XMS_ITS | CONTINUITY OF CARE DOCUMENT ---
Author Name juany harrington Address Unknown Organization [facility] Address [address] [place] [address] [address] [place] [address] Phone [phone] Care Team Providers Care [employer] Name Role Phone Christoph Guerra MD Unavailable [phone] ANNITA WALTER MD Unavailable [phone] ANNITA WALTER MD Unavailable [phone] PROBLEMS Condition Status Date Provider Notes Cardiology [...] In-person encounter Office Visit Christoph Guerra MD [facility] Cardiology examinationESRD on PDHTN essentialDiabetes mellitus, [...] Payer name Policy type / Coverage type [place] [employer] party ID [place] MED[employer] Medicare [id number] ADVANCE DIRECTIVES Name Date DISCUSSED - NO [...]
--- OUTSIDE RECORDS SUMMARY | 2024-06-18 12:44 | XMS_ITS | Referral Summary ---
Author Organization [facility] Address [address] [place] [address] Care Team Providers Care Electrician'S Assistant Name Role Phone Almita Rizzo RN Unavailable [phone] Beth Fernandez MD Unavailable [phone] Maday Oviedo MD Unavailable [phone] Tomasz Scott DO Unavailable [phone] No, Physician Primary Care Provider [phone] Meir Nazario MD Unavailable [phone] Encounters Date Type Department Care Team Description 06/14/2024 6:45 PM CDT - 06/14/2024 8:32 PM CDT Emergency [facility] Emergency Department [facility] [place] [address] Constipation, unspecified constipation type (Primary Dx); Abdominal pain; Anasarca Discharge Disposition: Discharge to home or self care 05/27/2024 10:00 AM CDT - 05/27/2024 11:59 PM CDT Hospital Encounter [facility] [address] [place] [address] Pre-kidney transplant, patient on transplant list; ESRD (end stage renal disease) (HCC) Discharge Disposition: Discharge to home or self care 05/17/2024 Telephone [facility] Transplant Kidney [address] [facility] [address] [id number] [place] [address] Almita Rizzo RN Waitlist Maintenance 04/29/2024 Telephone [facility] Transplant Kidney [address] [facility] [address] [id number] [place] [address] Hien Mireles 04/29/2024 Telephone [facility] Transplant Kidney [address] [facility] [address] [phone] [place] [address] Ra Houelle 04/11/2024 Telephone [facility] Transplant Kidney [address] [facility] [address] [id number] [place] [address] Almita Rizzo RN Waitlist Maintenance 04/06/2024 11:14 AM [facility] - 04/06/2024 12:22 PM [facility] Emergency Department [address] [place] [address] Lavon Castaneda MD Pain of left upper extremity (Primary Dx) Discharge Disposition: Discharge to home or self care 03/29/2024 10:00 AM RUN LEAD - 03/29/2024 11:59 PM [facility] Hospital Encounter [address] [address] Pre-transplant evaluation for kidney transplant; ESRD (end stage renal disease) (HCC) Discharge Disposition: Discharge to home or self care 03/22/2024 Documentation [facility] Transplant Kidney [address] [facility] [address] [id number] [place] [address] Almita Rizzo RN Waitlist Maintenance from Last 3 Months Allergies Active Allergy [...] (two) times a day HAND RASH 03/05/19 Active labetaloL (NORMODYNE,TRANDAT E) 300 mg tabletIndications: [...] (04/10/2022): Added automatically from request for surgery [id number] Hypertension 2021 Stage 5 chronic kidney disease [...] on file Legal Sex Female 11:50 PM RUN LEAD Gender Identity Not on file Sexual Orientation [...] 06/14/2024 4:30 PM CDT Plan of Treatment Not on file Medical Devices 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 Shelf Expiration Date Model / Serial / Lot [employer] [id number] [place] 15fr 62cm 2 Cuff Radiopaque Peritoneal Curl Catheter - Sn/A - [id number] Implanted:Qty : 1 on 03/14/2021 by Gildardo Leggett MD at [facility] Catheter N/A: Abdomen [employer] 07/01/2025 [id number] / N/A / [id number] Description:Peritoneal Dialy sis Catheter, Curl Cath, 2 Cuffs Graft Vasc 45cm 4-6mm [place] Acuseal Eptfe 3 Layer Kink Rst - [id number] - [id number] Implanted:Qty : 1 on 05/08/2022 by Uche Katz MD at [facility] Graft Left: Arm Wl [employer] [id number] 05/21/2024 [id number] / [id number] / 00 Procedures Procedure Name Priority Date/Time [...] T HIGH-SENSITIVITY 2-HOUR Timed 04/06/2024 11:12 AM RUN LEAD XR SHOULDER LEFT 2 OR MORE VIEWS ED 04/06/2024 8:55 AM RUN LEAD XR CHEST 1 VIEW ED 04/06/2024 8:55 AM RUN LEAD EGFR STAT 04/06/2024 8:24 AM RUN LEAD DIFFERENTIAL AUTO STAT 04/06/2024 8:2 4 AM RUN LEAD HCG, BLOOD, QUANTITATIVE STAT 04/06/2024 8:24 AM RUN LEAD TROPONIN T HIGH-SENSITIVITY SERIES (BASELINE, 2HR, 4HR, 6HR) STAT 04/06/2024 8:24 AM RUN LEAD BASIC METABOLIC PANEL STAT 04/06/2024 8:24 AM RUN LEAD CBC WITH AUTO DIFFERENTIAL STAT 04/06/2024 8:24 AM RUN LEAD ECG 12-LEAD STAT 04/06/2024 8:18 AM RUN LEAD HLA ANTIBODY SCREEN - SAB (CLASS I AND CLASS II) Routine 03/29/2024 10:00 AM RUN LEAD Pre-transplant evaluation for kidney transplant ESRD (end stage renal disease) (HCC) HLA ANTIBODY SCREEN BY PRA OR SAB PER SCHEDULE (CLASS I AND CLASS II) Routine 03/29/2024 10:00 AM RUN LEAD Pre-transplant evaluation for kidney transplant ESRD (end stage renal disease) (HCC) HEPATITIS C ANTIBODY Routine 02/16/2024 11:34 AM RUN LEAD Pre-kidney transplant, patient on transplant list ESRD (end stage renal disease) (HCC) HEMOGLOBIN A1C Routine 02/16/2024 11:34 AM RUN LEAD Pre-kidney transplant, patient on transplant list ESRD (end stage renal disease) (HCC) COLONOSCOPY 07/21/2023 10:23 AM CDT HM MAMMOGRAPHY Routine 06/04/2021 LIPID PANEL Routine 04/30/2021 12:22 PM RUN LEAD Pre-transplant evaluation for kidney transplant End stage [...] Albert Tovar M.D. KT: KT Report ID: [id number] Reading Location: [id number] Procedure Note Albert Tovar MD - 06/14/2024 [...] Albert Tovar M.D. KT: VIRIDIANA Report ID: [id number] Reading Location: [id number] Raisa RAPHAEL IMG CT PROCEDURES Final Resu [...] ur Straw Yellow Comment:Testing performed by : [address] [address] Clarity, ur Clear Clear DENNIS Comment:Testing performed by : [address] [address] Specific gravity, ur 1.008 1.003 - 1.030 DENNIS Comment:Testing performed by : [address] [address] pH, urine 8.0 DENNIS Comment: Interpretive Data U rine pH is affected by diet, medications, systemic acid-base disturbances, and renal tubular function. pH may affect urinary stone formation. For example, urine pH below 6.0 may help reduce the tendency for calcium phosphate stones and pH greater than 6.0 may reduce the tendency for uric acid stone formation. Source: [employer] Current Interpretive Data was last revised on 2017 Testing performed by: [address] [address] Protein, ur ql 2+(A) Negative DENNIS Comment:Testing performed by : [address] [address] Glucose, ur ql 3+(A) Negative DENNIS Comment:Testing performed by : [address] [address] Ketones, ur Negative Negative DENNIS JOSUE Comment:Testing performed by : [address], [place]., [address] Bilirubin, ur Negative Negative DENNIS JOSUE Comment:Testing performed by : [address], [place]., [address] Blood, ur 2+(A) Negative DENNIS JOSUE Comment:Testing performed by : [address], [place]., [address] Urobilinogen, ur <2.0 <2.0 mg/dL DENNIS JOSUE Comment:Testing performed by : [address], [place]., [address] Nitrite, ur Negative Negative DENNIS Comment:Testing performed by : [address], [place]., [address] Leukocyte esterase, ur Negative Negative DENNSI Comment:Testing performed by : [address], [place]., [address] UA reflex comment Reflex to microscopic UA will be performed. DENNIS JOSUE Comment:Testing performed by : [address], [place]., [address] Urine 06/14/2024 4:49 PM CDT 06/14/2024 4:53 PM CDT us Raisa RAPHAEL LAB MICROBIOLOGY - GENERAL O RDERABLES Final Result DENNIS [facility] [place] [address] * (ABNORMAL) Urinalysis, microscopic only (06/14/2024 4:49 PM CDT) WBC, ur 0-5 0 - 5 /HPF Comment:Testing performed by : [address], [place]., [address] RBC, ur 0-2 0 - 2 /HPF DENNIS JOSUE Comment:Testing performed by : [address], [place]., [address] Epithelial cells, squamous, ur >50(A) 0 - 5 /HPF DENNIS JOSUE Comment:Testing performed by : [address], [place]., [address] Culture Reflex Comment Reflex conditions for urine culture (WBC >10) not met. DENNIS Comment:Testing performed by : [address] [address] Urine 06/14/2024 4:49 PM CDT 06/14/2024 4:53 PM CDT Raisa RAPHAEL LAB URINE ORDERABLES Final R esult Performing Organization Address [facility] de Phone Number DENNIS [address] [facility] [employer] [place] [address] * (ABNORMAL) eGFR (06/14/2024 4:36 PM CDT) [...] was last reviewed 2020. Testing performed by: [address] [address] Blood 06/14/2024 4:36 PM CDT 06/14/2024 4:42 PM CDT Raisa RAPHAEL LAB BLOOD ORDERABLES Final R esult Performing Organization Address [facility] Co de Phone Number DENNIS [address] [facility] [place] [address] * Differential, auto (06/14/2024 4:36 PM CDT) Neutrophil abs 6.50 1.50 - 6.50 K/cumm Comment:Testing performed by : [address] [address] Imm gran abs 0.04 0.00 - 0.10 K/cumm DENNIS Comment:Testing performed by : [address] [address] Lymphocyte abs 1.95 0.80 - 3.30 K/cumm [facility] Comment:Testing performed by : [address] [address] Monocyte abs 0.60 0.20 - 0.80 K/cumm [facility] Comment:Testing performed by : [address] [address] Eosinophil abs 0.31 0.00 - 0.50 K/cumm DENNIS Comment:Testing performed by : [address] [address] Basophil abs 0.06 0.00 - 0.10 K/cumm [facility] Comment:Testing performed by : [address] [address] Neutrophil pct 68.8 % [facility] Comment: Interpretive Data Percent cell count reference ranges are not reported, since discordance with absolute values may lead to misinterpretation of CBC data. Current Interpretive Data was last revised on 2017. Testing performed by: [address] [address] Imm gran pct 0.4 % CERNER Comment: Interpretive Data Percent cell count reference ranges are not reported, since discordance with absolute values may lead to misinterpretation of CBC data. Current Interpretive Data was last revised on 2017. Testing performed by: [address] [address] Lymphocyte pct 20.6 % CERNER Comment: Interpretive Data Percent cell count reference ranges are not reported, since discordance with absolute values may lead to misinterpretation of CBC data. Current Interpretive Data was last revised on 2017. Testing performed by: [address] [address] Monocyte pct 6.3 % DENNIS Comment: Interpretive Data Percent cell count reference ranges are not reported, since discordance with absolute values may lead to misinterpretation of CBC data. Current Interpretive Data was last revised on 2017. Testing performed by: [address] [address] Eosinophil pct 3.3 % DENNIS Comment: Interpretive Data Percent cell count reference ranges are not reported, since discordance with absolute values may lead to misinterpretation of CBC data. Current Interpretive Data was last revised on 2017. Testing performed by: [address] [address] Basophil pct 0.6 % DENNIS Comment: Interpretive Data Percent cell count reference ranges are not reported, since discordance with absolute values may lead to misinterpretation of CBC data. Current Interpretive Data was last revised on 2017. Testing performed by: [address] [address] Blood 06/14/2024 4:36 PM CDT 06/14/2024 4:42 PM CDT us Raisa RAPHAEL LAB BLOOD ORDERABLES Final R esult [facility] [address] [facility] [place] [address] * (ABNORMAL) CBC with auto differential (06/14/2024 4:36 PM CDT) WBC 9.46 3.80 - 9.90 K/cumm Comment:Testing performed by : [address] [address] Hgb 9.3(L) 11.9 - 15.5 g/dL DENNIS JOSUE Comment:Testing performed by : [address] [address] Hct 30.1(L) 35.6 - 45.5 % DENNIS Comment:Testing performed by : [address] [address] Plt 325 150 - 400 K/cumm DENNIS JOSUE Comment:Testing performed by : [address] [address] MPV 9.1 9.1 - 12.3 fL DENNIS JOSUE Comment:Testing performed by : [address] [address] RBC 3.59(L) 3.90 - 5.20 M/cumm DENNIS JOSUE Comment:Testing performed by : [address] [address] MCV 83.8 81.3 - 96.4 fL DENNIS Comment:Testing performed by : [address] [address] MCH 25.9(L) 27.1 - 33.3 pg DENNIS Comment:Testing performed by : [address] [address] MCHC 30.9(L) 32.3 - 35.7 g/dL DENNIS Comment:Testing performed by : [address] [address] RDW CV 15.0(H) 11.1 - 14.9 % DENNIS Comment:Testing performed by : [address] [address] RDW SD 45.9 35.7 - 48.1 fL DENNIS Comment:Testing performed by : [address] [address] NRBC abs 0.00 0.00 - 0.01 K/cumm DENNIS Comment:Testing performed by : [address] [address] Blood 06/14/2024 4:36 PM CDT 06/14/2024 4:42 PM CDT us Raisa RAPHAEL LAB BLOOD ORDERABLES Final R esult DENNIS [address] [facility] Department [place] [address] * Lipase (06/14/2024 4:36 PM CDT) Lipase 49 10 - 99 Units/L Comment: Hemolyzed; result might be falsely decreased Testing performed by: [address] [address] Blood 06/14/2024 4:36 PM CDT 06/14/2024 4:42 PM CDT us Raisa RAPHAEL LAB BLOOD ORDERABLES Final R esult [facility] [address] [facility] Department [place] [address] * (ABNORMAL) Comprehensive metabolic panel (06/14/2024 4:36 PM CDT) Pathologist [facility] Sodium 139 135 - 145 mmol/L Comment:Testing performed by : [address] [address] Potassium, pl 4.5 3.3 - 4.9 mmol/L DENNIS Comment: Hemolyzed; Potassium value may be falsely elevated by as much as 1.0 mmol/L. Suggest redraw and reanalysis. Testing performed by: [address] [address] Chloride 101 97 - 110 mmol/L DENNIS Comment:Testing performed by : [address] [address] CO2 26 22 - 32 mmol/L DENNIS Comment:Testing performed by : [address] [address] Anion gap 12 2 - 15 mmol/L DENNIS Comment:Testing performed by : [address] [address] BUN 50(H) 6 - 25 mg/dL DENNIS Comment:Testing performed by : [address] [address] Creatinine 11.80(H) 0.60 - 1.10 mg/dL DENNIS Comment:Testing performed by : [address] [place]., [address] Glucose 179 70 - 199 mg/dL DENNIS Comment: Interpretive [...] was last revised 2022. Testing performed by: [address] [address] Calcium 8.6 8.5 - 10.3 mg/dL DENNIS Comment:Testing performed by : [address] [address] Bilirubin, total <0.2 0.1 - 1.2 mg/dL DENNIS Comment:Testing performed by : [address] [address] Protein, pl 6.5 6.5 - 8.5 g/dL DENNIS Comment:Testing performed by : [address] [address] Albumin 2.3(L) 3.5 - 5.0 g/dL DENNIS Comment:Testing performed by : [address] [address] Alk phos 170(H) 40 - 130 Units/L DENNIS Comment:Testing performed by : [address] [address] ALT NOTE 7 - 45 Units/L DENNIS Comment: Credited; Hemolyzed Specimen Testing performed by: [address] [address] AST 24 10 - 45 Units/L DENNIS Comment: Hemolyzed; result may be falsely elevated Testing performed by: [address] [address] Blood 06/14/2024 4:36 PM CDT 06/14/2024 4:42 PM CDT us Raisa RAPHAEL LAB BLOOD ORDERABLES Final R esult DENNIS [address] [facility] Department [place] [address] * HLA Antibody Screen by PRA or SAB per Schedule (Class I and Class II) (05/27/2024 10:00 AM CDT) Blood 05/27/2024 10:0 0 AM CDT Narrative HISTOTRAC - RUN LEAD Sample received in lab. Single Antigen Antibody Screen ordered. us Miriam Garner MD LAB BLOOD ORDERAB LES Final Result HISTOTRAC * HLA Antibody Screen - SAB (Class I and Class II) (05/27/2024 10:00 AM CDT) Pathologist [facility] Class I Treatment EDTA HISTOTRAC Class I [...] a method developed and validated by the [facility] HLA laboratory based on an FDA-approved IVD kit (LABScreen Single-Antigen, [employer], [place], [place]). All patient serum samples are pretreated with EDTA before the screen to prevent complement interference. Additional serum treatments, such as adsorption and DTT treatment, may be performed as indicated. Interpretive comments: Low risk: MFI [id number]. Moderate risk: MFI 1625-1544. Increased risk: MFI >/= 5000. The presence [...] antigens to avoid. Testing performed at the [facility], [facility]th [facility], [place], [address]. CLIA # [id number]. Amber Berry, Ph.D., Latex Caster, HLA Laboratory Jonathan Brennan M.D., Ph.D., Equipment Service Technician, HLA Laboratory Rehana Alarcon, Ph.D., CLIA Equipment Service Technician, [facility] Current methodology and interpretive comments last revised on 03/20/2022. Miriam Garner MD LAB BLOOD ORDERAB LES Final Result HISTOTRAC * (ABNORMAL) Troponin T high-sensitivity 2-hour (04/06/2024 11:12 AM RUN LEAD) Trop T hs 195(H) <=14 ng/L Comment: Interpretive Data For further hscTnT resources including the diagnostic algorithm and an aid in interpretation, copy and paste this link: https://nrl.testcatalog.org/show/hsTrop Current Interpretive Data last revised 2020. Testing performed by: [address] [address] Trop T hs pct delta -3 % DENNIS JOSUE Comment:Testing performed by : [address] [address] Trop T hs interp Insignificant DENNIS JOSUE Comment:Testing performed by : [address] [address] Blood 04/06/2024 11:1 2 AM RUN LEAD 04/06/2024 11:21 AM RUN LEAD us Lavon Castaneda MD LAB BLOOD ORDERABLE S Final Result DENNIS [address] [facility] Department [place] [address] * XR Chest 1 Vw Portable (04/06/2024 8:55 AM RUN LEAD) Anatomical Region Laterality Modality Body, Chest N/A Computed Radiogr aphy 04/06/2024 9:06 AM RUN LEAD Narrative 04/06/2024 9:06 AM RUN LEAD EXAM DESCRIPTION: XR CHEST 1 VIEW REASON [...] 9:06 AM - Electronically signed by Albert ORNELAS: CECI Report ID: [id number] Reading Location: [place] [address] Procedure Note Albert Lopes MD - 04/06/2024 [...] Albert Lopes M.D. KR: CECI Report ID: [id number] Reading Location: [id number] Lavon COOPER XR PROCEDURES F inal Result * XR Shoulder Left 2 or More Views (04/06/2024 8:55 AM RUN LEAD) Anatomical Region Laterality Modality Upper Extremities, Shoulder Left Comp uted Radiography 04/06/2024 9:06 AM RUN LEAD Narrative 04/06/2024 9:07 AM RUN LEAD EXAM DESCRIPTION: XR SHOULDER LEFT 2 OR [...] Albert Lopes M.D. KR: CECI Report ID: [id number] Reading Location: [id number] Procedure Note Albert Lopes MD - 04/06/2024 [...] Albert Lopes M.D. KR: CECI Report ID: [id number] Reading Location: [id number] Lavon Brevard Castaneda MD IMG XR PROCEDURES F inal Result * (ABNORMAL) Troponin T high-sensitivity series (baseline, 2hr, 4hr, 6hr) (04/06/2024 8:24 AM RUN LEAD) Trop T hs 200(H) <=14 ng/L Comment: Interpretive Data For further hscTnT resources including the diagnostic algorithm and an aid in interpretation, copy and paste this link: https://nrl.testcatalog.org/show/hsTrop Current Interpretive Data last revised 2020. Testing performed by: [facility], [address] [place] [address]., [address] Blood 04/06/2024 8:24 AM RUN LEAD 04/06/2024 8:33 AM RUN LEAD us Lavon Castaneda MD LAB BLOOD ORDERABLE S Edited Result - Final YVONNESSN [address] [facility] Department [place] [address] * (ABNORMAL) eGFR (04/06/2024 8:24 AM RUN LEAD) eGFR 3(L) >=60 mL/min/1. 73 m2 Comment: [...] was last reviewed 2020. Testing performed by: [facility], [address] [place] [address]., [address] Blood 04/06/2024 8:24 AM RUN LEAD 04/06/2024 8:33 AM RUN LEAD us Lavon Castaneda MD LAB BLOOD ORDERABLE S Final Result [facility] [address] [facility] Department [place] [address] * (ABNORMAL) Differential, auto (04/06/2024 8:24 AM RUN LEAD) Neutrophil abs 3.2 1.5 - 6.5 K/cumm Comment:Testing performed by : [address] [address] Imm gran abs 0.0 0.0 - 0.1 K/cumm DENNIS Comment:Testing performed by : [address] [address] Lymphocyte abs 2.2 0.8 - 3.3 K/cumm DENNIS Comment:Testing performed by : [address] [address] Monocyte abs 0.4 0.2 - 0.8 K/cumm DENNIS Comment:Testing performed by : [address] [address] Eosinophil abs 0.6(H) 0.0 - 0.5 K/cumm DENNIS Comment:Testing performed by : [address] [address] Basophil abs 0.1 0.0 - 0.1 K/cumm DENNIS Comment:Testing performed by : [address] [address] Neutrophil pct 49.0 % DENNIS Comment: Interpretive Data Percent cell count reference ranges are not reported, since discordance with absolute values may lead to misinterpretation of CBC data. Current Interpretive Data was last revised on 2017. Testing performed by: [address] [address] Imm gran pct 0.5 % DENNIS Comment: Interpretive Data Percent cell count reference ranges are not reported, since discordance with absolute values may lead to misinterpretation of CBC data. Current Interpretive Data was last revised on 2017. Testing performed by: [address] [address] Lymphocyte pct 34.0 % [facility] Comment: Interpretive Data Percent cell count reference ranges are not reported, since discordance with absolute values may lead to misinterpretation of CBC data. Current Interpretive Data was last revised on 2017. Testing performed by: [address] [address] Monocyte pct 6.6 % [facility] Comment: Interpretive Data Percent cell count reference ranges are not reported, since discordance with absolute values may lead to misinterpretation of CBC data. Current Interpretive Data was last revised on 2017. Testing performed by: [address] [address] Eosinophil pct 9.0 % [facility] Comment: Interpretive Data Percent cell count reference ranges are not reported, since discordance with absolute values may lead to misinterpretation of CBC data. Current Interpretive Data was last revised on 2017. Testing performed by: [address] [address] Basophil pct 0.9 % [facility] Comment: Interpretive Data Percent cell count reference ranges are not reported, since discordance with absolute values may lead to misinterpretation of CBC data. Current Interpretive Data was last revised on 2017. Testing performed by: [address] [address] Blood 04/06/2024 8:24 AM RUN LEAD 04/06/2024 8:33 AM RUN LEAD us Lavon Castaneda MD LAB BLOOD ORDERABLE S Final Result DENNIS JOSUE [address] [facility] Department [place] [address] * (ABNORMAL) CBC with auto differential (04/06/2024 8:24 AM RUN LEAD) WBC 6.5 3.8 - 9.9 K/cumm Comment:Testing performed by : [address] [address] Hgb 10.4(L) 11.9 - 15.5 g/dL DENNIS Comment:Testing performed by : [address] [address] Hct 33.0(L) 35.6 - 45.5 % [facility] Comment:Testing performed by : [address] [address] Plt 277 150 - 400 K/cumm [facility] Comment:Testing performed by : [address] [address] MPV 9.6 9.1 - 12.3 fL CERAR[facility]ELY Comment:Testing performed by : [address] [address] RBC 3.98 3.90 - 5.20 M/cumm [facility]ER[facility] Comment:Testing performed by : [address] [address] MCV 82.9 81.3 - 96.4 fL CERARACELY Comment:Testing performed by : [address] [address] MCH 26.1(L) 27.1 - 33.3 pg CERARACELY Comment:Testing performed by : [address] [address] MCHC 31.5(L) 32.3 - 35.7 g/dL CERARACELY Comment:Testing performed by : [address], [address] RDW CV 15.8(H) 11.1 - 14.9 % CERARACELY Comment:Testing performed by : [address], [address] RDW SD 47.7 35.7 - 48.1 fL CERARACELY Comment:Testing performed by : [address] [address] NRBC abs 0.00 0.00 - 0.01 K/cumm DENNIS Comment:Testing performed by : [address], [address] Blood 04/06/2024 8:24 AM RUN LEAD 04/06/2024 8:33 AM RUN LEAD Lavon Castaneda MD LAB BLOOD ORDERABLE S Final Result Performing Organization Address [facility] [facility] de Phone Number [address] [place] [address] * hCG, blood, quantitative (04/06/2024 8:24 AM RUN LEAD) Pathologist [facility] hCG, quant <5.0 0.0 - 5.0 IUnits/L Comment: Interpretive Data Male: < 5 IU/L Non- premenopausal Female: <5 IU/L The Rudy hCG Beta Quant assay procedure was used. Results from different manufacturers or methods may not be comparable. Serial testing should be performed using the same method. Interpretive Data was last revised on 2023 Testing performed by: [address] [address] Blood 04/06/2024 8:24 AM RUN LEAD 04/06/2024 8:33 AM RUN LEAD Lavon Castaneda MD LAB BLOOD ORDERABLE S Edited Result - Final Performing Organization Address [facility] de Phone Number [address] [address] * (ABNORMAL) Basic metabolic panel (04/06/2024 8:24 AM RUN LEAD) [facility] Sodium 139 135 - 145 mmol/L Comment:Testing performed by : [address] [address] Potassium, pl 4.5 3.3 - 4.9 mmol/L DENNIS JOSUE Comment:Testing performed by : [address] [address] Chloride 103 97 - 110 mmol/L DENNIS Comment:Testing performed by : [address] [address] CO2 21(L) 22 - 32 mmol/L DENNIS Comment:Testing performed by : [address] [address] Anion gap 15 2 - 15 mmol/L DENNIS Comment:Testing performed by : [address] [address] BUN 54(H) 6 - 25 mg/dL DENNIS Comment:Testing performed by : [address] [address] Creatinine 13.60(H) 0.60 - 1.10 mg/dL DENNIS Comment:Testing performed by : [address] [address] Glucose 95 70 - 199 mg/dL DENNIS [...] was last revised 2022. Testing performed by: [address] [address] Calcium 9.3 8.5 - 10.3 mg/dL DENNIS Comment:Testing performed by : [address] [address] Blood 04/06/2024 8:24 AM RUN LEAD 04/06/2024 8:33 AM RUN LEAD us Lavon Castaneda MD LAB BLOOD ORDERABLE S Final Result DENNIS 1993 [facility] Department of Laboratories [place], [place] [id number] * ECG 12 lead (04/06/2024 8:18 AM RUN LEAD) Pathologist [facility] Ventricular Rate EKG/Min 74 BPM [facility] Atrial Rate 74 BPM [facility] MO-Interval (MSEC) 148 ms [facility] QRS-Interval (MSEC) 70 ms [facility] QT-Interval (MSEC) 422 ms [facility] QTc 468 ms [facility] P [place] 65 degrees [facility] R [place] 1 degrees [facility] T [place] 31 degrees [facility] Diagnosis Normal sinus rhythm Low voltage QRS Septal infarct , age undetermined Abnormal ECG When compared with ECG of 06-MAR-2023 10:29, No significant change was found Confirmed by MEREDITH CANO M.D. ([id number]) on 04/08/2024 7:23:12 PM [facility] 04/06/2024 8:18 AM RUN LEAD 04/08/2024 7:23 PM RUN LEAD us Lavon Castaneda MD ECG ORDERABLES Fin al Result Performing Organization Address City/[facility] Co de Phone Number [facility] * HLA Antibody Screen by PRA or SAB per Schedule (Class I and Class II) (03/29/2024 10:00 AM RUN LEAD) Blood 03/29/2024 10:0 0 AM RUN LEAD Narrative HISTOTRAC - RUN LEAD Sample received in lab. Single Antigen Antibody Screen ordered. us Bashir Alston MD LAB BLOOD ORDERABLES Final R esult Performing Organization Address [facility] Co de Phone Number HISTOTRAC * HLA Antibody Screen - SAB (Class I and Class II) (03/29/2024 10:00 AM RUN LEAD) Class I Treatment EDTA HISTOTRAC Class I [...] per SSO. HISTOTRAC 03/29/2024 10:0 0 AM RUN LEAD 04/04/2024 10:33 AM RUN LEAD Narrative HISTOTRAC - 04/04/2024 10:33 AM RUN LEAD Single-antigen HLA antibody screen is performed on serum samples using a method developed and validated by the [facility] HLA laboratory based on an FDA-approved IVD kit (LABScreen Single-Antigen, [employer], [place], [place]). All patient serum samples are pretreated with EDTA before the screen to prevent complement interference. Additional serum treatments, such as adsorption and DTT treatment, may be performed as indicated. Interpretive comments: Low risk: MFI [id number]. Moderate risk: MFI 0159-8001. Increased risk: MFI >/= 5000. The presence [...] antigens to avoid. Testing performed at the [facility], [address] [place] [address], 5th floor, [place], [address]. CLIA # [id number]. Amber Berry, Ph.D., Latex Caster, HLA Laboratory Jonathan Brennan M.D., Ph.D., Equipment Service Technician, HLA Laboratory Rehana Alarcon, Ph.D., CLIA Equipment Service Technician, [facility] Clinical Laboratories Current methodology and interpretive comments last revised on 03/20/2022. us Bashir Alston MD LAB BLOOD ORDERABLES Edited Result - Final HISTOTRAC * Hepatitis C antibody Blood (02/16/2024 11:34 AM RUN LEAD) Hep C Ab Nonreactive Nonreactive Comment:Antibodies to HCV no t detected. Does NOT exclude the possibility of recent exposure to HCV. Current interpretive data was last revised on 21 Blood 02/16/2024 11:3 4 AM RUN LEAD 02/16/2024 11:45 AM RUN LEAD us Tonya Hammonds MD LAB MICROBIOLOGY - GENERAL ORDERABLES Final Result [facility] Department of Laboratories [place], [place] [id number] * (ABNORMAL) Hemoglobin A1c (02/16/2024 11:34 AM RUN LEAD) Hgb A1C 6.2(H) 4.0 - 5.6 % Estimated Average Glucose 131 mg/dL DENNIS [facility] Comment: The ADA recommends reporting an estimated Average Glucose (eAG) with all Hemoglobin A1c results using the equation derived from a study of 507 normal and diabetic adults. Minority populations were underrepresented and children were not included. (Diabetes Care 2020; 43(S1): S66-S76). The eAG is not equivalent to a fasting glucose. Blood 02/16/2024 11:3 4 AM RUN LEAD 02/16/2024 11:45 AM RUN LEAD us Tonya Hammonds MD LAB BLOOD ORDERABLE S Final Result [facility] [place] [address] * Colonoscopy (07/21/2023 10:23 AM CDT) Anatomical Region Laterality Modality Other Narrative Procedure Note Haritha Stover MD - 07/21/2023 10:23 AM CDT [facility] Patient Name: Bakari Smith Procedure Date: 07/21/2023 10:23 AM Date of : 1980 Admit Type: Outpatient Age: 43 Gender: Female Attending MD: Haritha Stover M.D. Room: [facility] ENDOSCOPY ROOM 02 Note Status: [...] The scope was passed under direct vision.The [id number] Colonoscope was introducedthrough the anus and advanced to the the cecum, identifiedby appendiceal orifice and ileocecal valve. The colonoscopy was performed without difficulty. The patient tolerated the procedure well. The qualityof the bowel preparation was evaluated using the BBPS ([place] Bowel Preparation Scale) with scores of:Right Colon [...] On: 07/21/2023 10:23 AM Recognized by the [employer] for promoting quality in endoscopy Haritha Stover MD ENDOSCOPY PROCEDURES Final Res ult * HM MAMMOGRAPHY (06/04/2021) Impressions Rashida Schneider - 06/04/2021 IMPRESSION: 1. Benign mammogram. READ BY: NINO BAJWA MD 06/05/2021 Historical Provider HEALTH MAINTENANCE Final Result * Lipid panel (04/30/2021 12:22 PM RUN LEAD) Cholesterol 139 30 - 199 mg/dL DENNIS [...] revised on 2017. HDL 70 >=40 mg/dL [facility] Comment: Interpretive Data Ages < [...] on 2017. LDL, calculated 56 <=129 mg/dL [facility] Comment: Interpretive Data Ages < [...] revised on 2017. Non-HDL Cholesterol 69 mg/dL [facility] Comment: Interpretive Data Ages < [...] last revised on 2017. Chol/HDL ratio 2 [facility] Blood 04/30/2021 12:2 2 PM RUN LEAD 04/30/2021 1:03 PM RUN LEAD us Ren Pelayo MD LAB BLOOD ORDERABLES Final Result DENNIS [facility] Department [place] [address] from Last 3 Months or Most Recently Relevant to Health Maintenance Insurance [facility] MEDICARE MEDICARE [facility] MEDICARE [facility] MEDICARE SUPPLEMENT MEDICARE [facility] MEDICARE SUPPLEMENT Advance Directives For more information, please contact: [phone] * Full Code (Latest Code Status on File) Date Activated Date Inactivated Comments 07/21/2023 9:59 AM 07/21/2023 3:56 PM Care Teams Electrician'S Assistant Relationship Specialty Start Date End Date No, Physician PCP - General 02/16/24 Almita Rizzo, RN [address] [place] [address] Global Marketing Specialist 04/04/21 Beth Fernandez MD [address] [facility] [address] [place] [address] Referring Physician Nephrology 04/04/21 Maday Oviedo MD [address] [facility] [address] [place] [address] Neurology 09/12/22 Tomasz Scott DO [address] [facility] [address] [facility] [address] [place] [address] Biochemistry Specialist Cardiology 09/16/22 Meir Nazario MD [address] [facility] [address] [place] [address] Obstetrics and Gynecology 04/11/24
--- OUTSIDE RECORDS SUMMARY | 2024-06-18 12:44 | XMS_ITS ---
Author Organization [facility] Address [address] [place] [address] Care Team Providers Care Head Of It Name Role Phone Almiat Rizzo RN Unavailable [phone] Beth Fernandez MD Unavailable [phone] Maday Oviedo MD Unavailable [phone] Tomasz Scott DO Unavailable [phone] No, Physician Primary Care Provider [phone] Meir Nazario MD Unavailable Transplant Episode Kidney Candidate [facility] ([place], [place]) [facility] Center waitlisted on 09/10/2021 Marked as Active on 04/02/2023 Reason: Listed in UNET Kidney CoordinatorAlmita Rizzo RN Fax: N/A Email: N/A Scores Score Value Updated Exceptions/Reas ons CPRA Not available EPTS (Calc) 53 06/18/2024 [place] 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 Mellitus - Type II Care Team Name Role Phone Fax Email Almita Rizzo RN Kidney Coordinator [phone] N/A N/A Beth Fernandez MD Referring Physician [phone] N/A Hien Mireles Account Classification Clerk [phone] N/A N/A Events Pre-Transplant Referred: 02/07/2021 Evaluation began: 04/04/2021 Committee: 09/09/2021 UNOS qualified: 01/21/2021 Center waitlisted: 09/10/2021 Dialysis History Dialysis History Start End Type Comments Center 04/23/2021 Peritoneal [facility] 01/21/2021 04/23/2021 Hemo M/W/F [facility] Information Center Phone Fax Address [facility] [phone] [address] [facility] [phone] [address] [place] [phone]
--- OUTSIDE RECORDS SUMMARY | 2024-06-18 12:44 | XMS_ITS | Encounter Summary ---
Author Organization [facility] Healthcare Address [address] [place] [address] Care Team Providers Care Ring Rolling Machine Operator Name Role Phone Jessie Dickson NP Primary Care Provider [phone] Almita Rizzo RN Unavailable [phone] Beth Fernandez MD Unavailable [phone] Maday Oviedo MD Unavailable [phone] Tomasz Scott DO Unavailable [phone] Bashir Alston MD Primary Care Provider [phone] No, Physician Primary Care Provider [phone] Meir Nazario MD Unavailable [phone] Reason for Visit * Reason Onset Date Comments READY TO SCHEDULE 04/28/2023 Encounter Details Date Type Department Care Team (Late st Contact Info) Description 04/28/2023 Telephone [facility] Specialty Services [address] [place] [address] Miscellaneous, Not In File READY TO SCHEDULE [...] on file Legal Sex Female 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 [address] [place] [address] PCP - General Transplant 07/08/23 07/08/23 No, Physician PCP - General 02/16/24 Almita Rizzo, RN [address] [facility] [address] [place] [address] Special Procedure Technologist 04/04/21 Beth Fernandez MD [address] [facility] [address] [place] [address] Referring Physician Nephrology 04/04/21 Maday Oviedo MD [address] [facility] [address] [place] [address] Neurology 09/12/22 Tomasz Scott DO [address] [place] [address] Bottom Turning Lathe Turner Cardiology 09/16/22 Meir Nazario MD [address] [facility] [address] [place] [address] Obstetrics and Gynecology 04/11/24 documented as of this encounter
--- OUTSIDE RECORDS SUMMARY | 2024-06-18 13:11 | XMS_ITS | Clinical Summary ---
Author Organization [facility] Address [address] [place] [address] Phone Care Team Providers Care Onsite Health Coach Name Role Phone Jessie Dickson MD Primary Care Provider [phone] Allergies Active Allergy Reactions Criticality Noted Date [...] times daily. 9 Active ergocalciferol (VITAMIN D2) 80367 units capsule TK 1 C PO Q [...] the skin Active Blood Glucose Monitoring Suppl (shopa Verio Flex System) w/Device kit USE DIRECTED [...] 2024 Insurance MEDICAID - [place] Care Teams Onsite Health Coach Relationship Specialty Start Date End Date Jessie Dickson MD [address] [place] [address] PCP - General 05/31/18
--- OUTSIDE RECORDS SUMMARY | 2024-06-18 13:11 | XMS_ITS | Encounter Summary ---
Author Organization [facility] Health Address [address] [facility] [place] [address] Care Team Providers Care Oracle Sql Developer Name Role Phone Jessie Dickson TAILINGS MAN-COMPOUNDING PHARMACY TECHNICIAN Primary Care Pro vider Encounter Details Date Type Department Care Team (Late st Contact Info) Description 05/25/2018 Ophth Exam [facility] [address] [place] [address] Regina Fritz MD [address] [place] [address] Social History Tobacco Use Types Packs/Day Years Used Date Smoking Tobacco: Never Smokeless Tobacco: Never Alcohol Use Standard Drinks/Week Comments No 0 (1 standard drink = 0.6 oz pur e alcohol) socially. Comments No Sex and Gender Information Value Date Recorded Sex Assigned at Not on file Legal Sex Female 5:16 PM ROCK CONTRACTOR Gender Identity Not on file Sexual Orientation [...] on filedocumented in this encounter Care Teams Oracle Sql Developer Relationship Specialty Start Date End Date Jessie Dickson APRN-JANET [address] [address] PCP - General 06/30/14 documented as of this encounter
--- OUTSIDE RECORDS SUMMARY | 2024-06-18 13:11 | XMS_ITS | Clinical Summary ---
Author Organization [facility] [employer] Address [address] [place] [address] Care Team Providers Care Bat Person Name Role Phone Jessie Dickson PHYSICIAN RELATIONS REPRESENTATIVE-NUDE MODEL Primary Care Pro vider Source Comments [facility],non-owned Affiliates and Associated Physician Practices is amultiple site organization consisting of ambulatory clinics and hospital sitesin [place], [place], [place] and [place]. This disclosure is being madepursuant to the Care Everywhere program and may not contain all information available regarding this patient. Last updated 17.[facility] [employer] Allergies Active Allergy Reactions Criticality Noted Date [...] Each 11 06/10/19 19 Active ergocalciferol (DRISDOL) 48388 units capsule Take 1 capsule by mouth [...] 2 tablet 01/22/20 22 Active HYDROcodone-acetami nophen ([place]) 5-325 MG tablet Take 1 (one) tablet [...] on file Legal Sex Female 5:16 PM DIAL PAINTER Gender Identity Not on file Sexual Orientation Not on file Last Filed Vital Signs Vital Sign Reading Time Taken Comments Blood Pressure 145/85 02/05/2022 12:[address] irizarry aware; ok to d/cv Pulse 74 02/05/2022 11:55 AM DIAL PAINTER Temperature 36.8 C (98.2 F) 09/13/2019 8:22 AM CDT Respiratory Rate 12 02/05/2022 11:5 0 AM DIAL PAINTER Oxygen Saturation 100% 02/05/2022 11: 55 AM DIAL PAINTER Inhaled Oxygen Concentration - - Weight 108.9 [...] 11/01/2018 10:11 AM CDT us Tessie Pritchard PHYSICIAN RELATIONS REPRESENTATIVE-NUDE MODEL LAB - POINT OF CARE O RDERABLES Final Result * HEPATITIS C AB SCREEN RFLX NAAT QUANT (05/28/2018 12:13 PM CDT) Pathologist [facility] Hepatitis C Antibody Non-react javier Non-reac tive 05/28/2018 1:18 PM CDT [facility] Comment: Hepatitis C Antibody screen [...] MD LAB - CHEMISTRY ORDERABLES Final Result [facility] [address] [place] [address] * HIV-1 HIV-2 ANTIGEN/ANTIBODY (05/24/2018 5:08 PM CDT) HIV Antigen/Antibod y 1 & 2 Non-reacti ve Non-react javier 05/24/2018 5:54 PM CDT [facility] Comment: Neither HIV-1 p24 Antigen nor HIV-1/HIV-2 Antibodies are detected. Blood BLOOD SPECIMEN / Unknown Venipuncture / Unknown 05/24/2018 5:08 PM CDT 05/24/2018 5:16 PM CDT Namita Raymond MD LAB - HEMATOLOGY ORDERABLES Fi nal Result [facility] [address] [place] [address], [facility] [phone] from Last 3 Months or Most Recently Relevant to Health Maintenance Insurance MEDICARE MEDICAID - [place] [facility] MEDICAID [place]END[place] - [place] MEDICAID - OUT OF STATE Advance Directives * Full Code (Latest Code Status on File) Date Activated Date Inactivated Comments 05/25/2018 12:57 AM 05/28/2018 5:22 PM * Full Code Date Activated Date Inactivated Comments 05/24/2018 6:24 PM 05/25/2018 12:57 AM Care Teams Bat Person Relationship Specialty Start Date End Date Jessie Dickson APRN-JANET [facility] [address] [id number] PCP - General 06/30/14
--- OUTSIDE RECORDS SUMMARY | 2024-06-18 13:12 | XMS_ITS ---
Author Organization [facility] Address [address] [place] [address] Care Team Providers Care Pick Up Man Name Role Phone Almita Rizzo RN Unavailable [phone] Beth Fernandez MD Unavailable [phone] Maday Oviedo MD Unavailable [phone] Tomasz Scott DO Unavailable No, Physician Primary Care Provider [phone] Meir Nazario MD Unavailable [phone] Transplant Episode Kidney Candidate [facility] ([place], [place]) [facility] Center waitlisted on 09/10/2021 Marked as Active on 04/02/2023 Reason: Listed in UNET Kidney CoordinatorAlmita Rizzo RN Fax: N/A Email: N/A Scores Score Value Updated Exceptions/Reas ons CPRA Not available EPTS (Calc) 53 06/18/2024 [place] 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 Mellitus - Type II Care Team Name Role Phone Fax Email Almita Rizzo RN Kidney Coordinator [phone] N/A N/A Beth Fernandez MD Referring Physician [phone] N/A Hien Mireles Gathering Machine Setter [phone] N/A N/A Events Pre-Transplant Referred: 02/07/2021 Evaluation began: 04/04/2021 Committee: 09/09/2021 UNOS qualified: 01/21/2021 Center waitlisted: 09/10/2021 Dialysis History Dialysis History Start End Type Comments Center 04/23/2021 Peritoneal [facility] 01/21/2021 04/23/2021 Hemo M/W/F [facility] Dialysis Center Information Center Phone Fax Address [facility] [phone] [address] [facility] [phone] [place] [phone]
--- OUTSIDE RECORDS SUMMARY | 2024-06-18 13:12 | XMS_ITS | Referral Summary ---
Author Organization [facility] (formerly [facility]) at the [facility] Office Center Address [address] [place] [address] Care Team Providers Care Cabinetmaker Maintenance Name Role Phone Almita Rizzo RN Unavailable [phone] Beth Fernandez MD Unavailable [phone] Maday Oviedo MD Unavailable [phone] Tomasz Scott DO Unavailable [phone] No, Physician Primary Care Provider [phone] Meir Nazario MD Unavailable [phone] Encounters Date Type Department Care Team Description 06/14/2024 6:45 PM CDT - 06/14/2024 8:[address] [facility] ([place], [place]) Emergency Department [facility] [place] [address] Constipation, unspecified constipation type (Primary Dx); Abdominal pain; Anasarca Discharge Disposition: Discharge to home or self care 05/27/2024 10:00 AM CDT - 05/27/2024 11:59 PM CDT Hospital Encounter [facility] [address] [place] [address] Pre-kidney transplant, patient on transplant list; ESRD (end stage renal disease) (HCC) Discharge Disposition: Discharge to home or self care 05/17/2024 Telephone [facility] Trans[facility] Kidney [address] [facility] [address] [id number] [place] [address] Almita Rizzo RN Waitlist Maintenance 04/29/2024 Telephone [facility] [address] [facility] [address] [id number] [place] [address] Hien Mireles 04/29/2024 Telephone [facility] [address] [facility] [address] [id number] [place] [address] Ra Houelle 04/11/2024 Telephone [facility]ney [address] [facility] [address] [phone] [place] [address] Almita Rizzo RN Waitlist Maintenance 04/06/2024 11:14 AM [facility] - 04/06/2024 12:22 PM [facility] Emergency Department [address] [place] [address] Lavon Castaneda MD Pain of left upper extremity (Primary Dx) Discharge Disposition: Discharge to home or self care 03/29/2024 10:00 AM CONTENT ARCHITECT - 03/29/2024 11:59 PM [facility] Hospital Encounter [address] [address] Pre-transplant evaluation for kidney transplant; ESRD (end stage renal disease) (HCC) Discharge Disposition: Discharge to home or self care 03/22/2024 Documentation [facility] Kidney [address] [facility] [address] [id number] [place] [address] Almita Rizzo RN Waitlist Maintenance from Last [...] (04/10/2022): Added automatically from request for surgery [id number] Hypertension 2021 Stage 5 chronic kidney disease [...] on file Legal Sex Female 11:50 PM CONTENT ARCHITECT Gender Identity Not on file Sexual Orientation [...] on file Medical Devices Implanted Type Area Art Consultant Device Identifier Shelf Expiration Date Model / Serial / Lot [employer] [id number] [place] 15fr 62cm 2 Cuff Radiopaque Peritoneal Curl Catheter - Sn/A - [id number] Implanted:Qty : 1 on 03/14/2021 by Gildardo Leggett MD at [facility] Catheter N/A: Abdomen [employer] 07/01/2025 [id number] / N/A / [id number] Description:Peritoneal Dialy sis Catheter, Curl Cath, 2 Cuffs Graft Vasc 45cm 4-6mm [place] Acuseal Eptfe 3 Layer Kink Rst - [id number] - [id number] Implanted:Qty : 1 on 05/08/2022 by Uche Katz MD at [facility] Graft Left: Arm [employer] [id number] 05/21/2024 [id number] / [id number] / 00 Procedures Procedure Name Priority Date/Time [...] T HIGH-SENSITIVITY 2-HOUR Timed 04/06/2024 11:12 AM CONTENT ARCHITECT XR SHOULDER LEFT 2 OR MORE VIEWS ED 04/06/2024 8:55 AM CONTENT ARCHITECT XR CHEST 1 VIEW ED 04/06/2024 8:55 AM CONTENT ARCHITECT EGFR STAT 04/06/2024 8:24 AM CONTENT ARCHITECT DIFFERENTIAL AUTO STAT 04/06/2024 8:2 4 AM CONTENT ARCHITECT HCG, BLOOD, QUANTITATIVE STAT 04/06/2024 8:24 AM CONTENT ARCHITECT TROPONIN T HIGH-SENSITIVITY SERIES (BASELINE, 2HR, 4HR, 6HR) STAT 04/06/2024 8:24 AM CONTENT ARCHITECT BASIC METABOLIC PANEL STAT 04/06/2024 8:24 AM CONTENT ARCHITECT CBC WITH AUTO DIFFERENTIAL STAT 04/06/2024 8:24 AM CONTENT ARCHITECT ECG 12-LEAD STAT 04/06/2024 8:18 AM CONTENT ARCHITECT HLA ANTIBODY SCREEN - SAB (CLASS I AND CLASS II) Routine 03/29/2024 10:00 AM CONTENT ARCHITECT Pre-transplant evaluation for kidney transplant ESRD (end stage renal disease) (HCC) HLA ANTIBODY SCREEN BY PRA OR SAB PER SCHEDULE (CLASS I AND CLASS II) Routine 03/29/2024 10:00 AM CONTENT ARCHITECT Pre-transplant evaluation for kidney transplant ESRD (end stage renal disease) (HCC) HEPATITIS C ANTIBODY Routine 02/16/2024 11:34 AM CONTENT ARCHITECT Pre-kidney transplant, patient on transplant list ESRD (end stage renal disease) (HCC) HEMOGLOBIN A1C Routine 02/16/2024 11:34 AM CONTENT ARCHITECT Pre-kidney transplant, patient on transplant list ESRD (end stage renal disease) (HCC) COLONOSCOPY 07/21/2023 10:23 AM CDT HM MAMMOGRAPHY Routine 06/04/2021 LIPID PANEL Routine 04/30/2021 12:22 PM CONTENT ARCHITECT Pre-transplant evaluation for kidney transplant End stage [...] Albert Tovar M.D. KT: KT Report ID: [id number] Reading Location: [id number] Procedure Note Albert Tovar MD - 06/14/2024 [...] Albert Tovar M.D. KT: VIRIDIANA Report ID: [id number] Reading Location: [id number] Raisa RAPHAEL IMG CT PROCEDURES Final Resu [...] ur Straw Yellow Comment:Testing performed by : [address] [address] Clarity, ur Clear Clear DENNIS Comment:Testing performed by : [address] [address] Specific gravity, ur 1.008 1.003 - 1.030 DENNIS Comment:Testing performed by : [address] [address] pH, urine 8.0 DENNIS Comment: Interpretive Data U rine pH is affected by diet, medications, systemic acid-base disturbances, and renal tubular function. pH may affect urinary stone formation. For example, urine pH below 6.0 may help reduce the tendency for calcium phosphate stones and pH greater than 6.0 may reduce the tendency for uric acid stone formation. Source: [place] Current Interpretive Data was last revised on 2017 Testing performed by: [address] [address] Protein, ur ql 2+(A) Negative DENNIS Comment:Testing performed by : [address] [address] Glucose, ur ql 3+(A) Negative DENNIS Comment:Testing performed by : [address] [address] Ketones, ur Negative Negative DENNIS JOSUE Comment:Testing performed by : [address], [place]., [address] Bilirubin, ur Negative Negative DENNIS JOSUE Comment:Testing performed by : [address], [place]., [address] Blood, ur 2+(A) Negative DENNIS JOSUE Comment:Testing performed by : [address], [place]., [address] Urobilinogen, ur <2.0 <2.0 mg/dL DENNIS JOSUE Comment:Testing performed by : [address], [place]., [address] Nitrite, ur Negative Negative DENNIS Comment:Testing performed by : [address], [place]., [address] Leukocyte esterase, ur Negative Negative DENNIS Comment:Testing performed by : [address], [place]., [address] UA reflex comment Reflex to microscopic UA will be performed. DENNIS JOSUE Comment:Testing performed by : [address], [place]., [address] Urine 06/14/2024 4:49 PM CDT 06/14/2024 4:53 PM CDT us Raisa RAPHAEL LAB MICROBIOLOGY - GENERAL O RDERABLES Final Result DENNIS [facility] Department [place] [address] * (ABNORMAL) Urinalysis, microscopic only (06/14/2024 4:49 PM CDT) WBC, ur 0-5 0 - 5 /HPF Comment:Testing performed by : [address], [place]., [address] RBC, ur 0-2 0 - 2 /HPF DENNIS JOSUE Comment:Testing performed by : [address], [place]., [address] Epithelial cells, squamous, ur >50(A) 0 - 5 /HPF DENNIS JOSUE Comment:Testing performed by : [address], [place]., [address] Culture Reflex Comment Reflex conditions for urine culture (WBC >10) not met. DENNIS Comment:Testing performed by : [address] [address] Urine 06/14/2024 4:49 PM CDT 06/14/2024 4:53 PM CDT Raisa RAPHAEL LAB URINE ORDERABLES Final R esult Performing Organization Address [facility] de Phone Number DENNIS [address] [facility] [employer] [place] [place] [address] * (ABNORMAL) eGFR (06/14/2024 4:36 PM CDT) [...] was last reviewed 2020. Testing performed by: [address] [address] Blood 06/14/2024 4:36 PM CDT 06/14/2024 4:42 PM CDT Raisa RAPHAEL LAB BLOOD ORDERABLES Final R esult Performing Organization Address [facility] Co de Phone Number DENNIS [address] [facility] Department [place] [address] * Differential, auto (06/14/2024 4:36 PM CDT) Neutrophil abs 6.50 1.50 - 6.50 K/cumm Comment:Testing performed by : [address] [address] Imm gran abs 0.04 0.00 - 0.10 K/cumm DENNIS Comment:Testing performed by : [address] [address] Lymphocyte abs 1.95 0.80 - 3.30 K/cumm [facility] Comment:Testing performed by : [address] [address] Monocyte abs 0.60 0.20 - 0.80 K/cumm [facility] Comment:Testing performed by : [address] [address] Eosinophil abs 0.31 0.00 - 0.50 K/cumm DENNIS Comment:Testing performed by : [address] [address] Basophil abs 0.06 0.00 - 0.10 K/cumm [facility] Comment:Testing performed by : [address] [address] Neutrophil pct 68.8 % [facility] Comment: Interpretive Data Percent cell count reference ranges are not reported, since discordance with absolute values may lead to misinterpretation of CBC data. Current Interpretive Data was last revised on 2017. Testing performed by: [address] [address] Imm gran pct 0.4 % CERNER Comment: Interpretive Data Percent cell count reference ranges are not reported, since discordance with absolute values may lead to misinterpretation of CBC data. Current Interpretive Data was last revised on 2017. Testing performed by: [address] [address] Lymphocyte pct 20.6 % CERNER Comment: Interpretive Data Percent cell count reference ranges are not reported, since discordance with absolute values may lead to misinterpretation of CBC data. Current Interpretive Data was last revised on 2017. Testing performed by: [address] [address] Monocyte pct 6.3 % DENNIS Comment: Interpretive Data Percent cell count reference ranges are not reported, since discordance with absolute values may lead to misinterpretation of CBC data. Current Interpretive Data was last revised on 2017. Testing performed by: [address] [address] Eosinophil pct 3.3 % DENNIS Comment: Interpretive Data Percent cell count reference ranges are not reported, since discordance with absolute values may lead to misinterpretation of CBC data. Current Interpretive Data was last revised on 2017. Testing performed by: [address] [address] Basophil pct 0.6 % DENNIS Comment: Interpretive Data Percent cell count reference ranges are not reported, since discordance with absolute values may lead to misinterpretation of CBC data. Current Interpretive Data was last revised on 2017. Testing performed by: [address] [address] Blood 06/14/2024 4:36 PM CDT 06/14/2024 4:42 PM CDT us Raisa RAPHAEL LAB BLOOD ORDERABLES Final R esult [facility] [address] [facility] Department [place] [address] * (ABNORMAL) CBC with auto differential (06/14/2024 4:36 PM CDT) WBC 9.46 3.80 - 9.90 K/cumm Comment:Testing performed by : [address] [address] Hgb 9.3(L) 11.9 - 15.5 g/dL DENNIS JOSUE Comment:Testing performed by : [address] [address] Hct 30.1(L) 35.6 - 45.5 % DENNIS Comment:Testing performed by : [address] [address] Plt 325 150 - 400 K/cumm DENNIS JOSUE Comment:Testing performed by : [address] [address] MPV 9.1 9.1 - 12.3 fL DENNIS JOSUE Comment:Testing performed by : [address] [address] RBC 3.59(L) 3.90 - 5.20 M/cumm DENNIS JOSUE Comment:Testing performed by : [address] [address] MCV 83.8 81.3 - 96.4 fL DENNIS Comment:Testing performed by : [address] [address] MCH 25.9(L) 27.1 - 33.3 pg DENNIS Comment:Testing performed by : [address] [address] MCHC 30.9(L) 32.3 - 35.7 g/dL DENNIS Comment:Testing performed by : [address] [address] RDW CV 15.0(H) 11.1 - 14.9 % DENNIS Comment:Testing performed by : [address] [address] RDW SD 45.9 35.7 - 48.1 fL DENNIS Comment:Testing performed by : [address] [address] NRBC abs 0.00 0.00 - 0.01 K/cumm DENNIS Comment:Testing performed by : [address] [address] Blood 06/14/2024 4:36 PM CDT 06/14/2024 4:42 PM CDT us Raisa RAPHAEL LAB BLOOD ORDERABLES Final R esult DENNIS [address] [facility] Department [place] [address] * Lipase (06/14/2024 4:36 PM CDT) Lipase 49 10 - 99 Units/L Comment: Hemolyzed; result might be falsely decreased Testing performed by: [address] [address] Blood 06/14/2024 4:36 PM CDT 06/14/2024 4:42 PM CDT us Raisa RAPHAEL LAB BLOOD ORDERABLES Final R esult [facility] [address] [facility] Department [place] [address] * (ABNORMAL) Comprehensive metabolic panel (06/14/2024 4:36 PM CDT) Pathologist [facility] Sodium 139 135 - 145 mmol/L Comment:Testing performed by : [address] [address] Potassium, pl 4.5 3.3 - 4.9 mmol/L DENNIS Comment: Hemolyzed; Potassium value may be falsely elevated by as much as 1.0 mmol/L. Suggest redraw and reanalysis. Testing performed by: [address] [address] Chloride 101 97 - 110 mmol/L DENNIS Comment:Testing performed by : [address] [address] CO2 26 22 - 32 mmol/L DENNIS Comment:Testing performed by : [address] [address] Anion gap 12 2 - 15 mmol/L DENNIS Comment:Testing performed by : [address] [address] BUN 50(H) 6 - 25 mg/dL DENNIS Comment:Testing performed by : [address] [address] Creatinine 11.80(H) 0.60 - 1.10 mg/dL DENNIS Comment:Testing performed by : [address] [place]., [address] Glucose 179 70 - 199 mg/dL DENNIS [...] was last revised 2022. Testing performed by: [address] [address] Calcium 8.6 8.5 - 10.3 mg/dL DENNIS Comment:Testing performed by : [address] [address] Bilirubin, total <0.2 0.1 - 1.2 mg/dL DENNIS Comment:Testing performed by : [address] [address] Protein, pl 6.5 6.5 - 8.5 g/dL DENNIS Comment:Testing performed by : [address] [address] Albumin 2.3(L) 3.5 - 5.0 g/dL DENNIS Comment:Testing performed by : [address] [address] Alk phos 170(H) 40 - 130 Units/L DENNIS Comment:Testing performed by : [address] [address] ALT NOTE 7 - 45 Units/L DENNIS Comment: Credited; Hemolyzed Specimen Testing performed by: [address] [address] AST 24 10 - 45 Units/L DENNIS Comment: Hemolyzed; result may be falsely elevated Testing performed by: [address] [address] Blood 06/14/2024 4:36 PM CDT 06/14/2024 4:42 PM CDT us Raisa RAPHAEL LAB BLOOD ORDERABLES Final R esult DENNIS [address] [facility] Department [place] [address] * HLA Antibody Screen by PRA or SAB per Schedule (Class I and Class II) (05/27/2024 10:00 AM CDT) Blood 05/27/2024 10:0 0 AM CDT Narrative HISTOTRAC - CONTENT ARCHITECT Sample received in lab. Single Antigen Antibody Screen ordered. us Miriam Garner MD LAB BLOOD ORDERAB LES Final Result HISTOTRAC * HLA Antibody Screen - SAB (Class I and Class II) (05/27/2024 10:00 AM CDT) Pathologist [facility] Class I Treatment EDTA HISTOTRAC Class I [...] a method developed and validated by the [facility] HLA laboratory based on an FDA-approved IVD kit (LABScreen Single-Antigen, [place], [place], [place]). All patient serum samples are pretreated with EDTA before the screen to prevent complement interference. Additional serum treatments, such as adsorption and DTT treatment, may be performed as indicated. Interpretive comments: Low risk: MFI [id number]. Moderate risk: MFI [id number]. Increased risk: MFI >/= 5000. The presence [...] antigens to avoid. Testing performed at the [facility], [facility] [address] [facility], [place], [address]. CLIA # [id number]. Amber Berry, Ph.D., Stock And Station Agent, HLA Laboratory Jonathan Brennan M.D., Ph.D., Yarn Dry Room Worker, HLA Laboratory Rehana Alarcon, Ph.D., CLIA Yarn Dry Room Worker, [facility] Current methodology and interpretive comments last revised on 03/20/2022. Miriam Garner MD LAB BLOOD ORDERAB LES Final Result HISTOTRAC * (ABNORMAL) Troponin T high-sensitivity 2-hour (04/06/2024 11:12 AM CONTENT ARCHITECT) Trop T hs 195(H) <=14 ng/L Comment: Interpretive Data For further hscTnT resources including the diagnostic algorithm and an aid in interpretation, copy and paste this link: https://nrl.testcatalog.org/show/hsTrop Current Interpretive Data last revised 2020. Testing performed by: [address] [address] Trop T hs pct delta -3 % DENNIS JOSUE Comment:Testing performed by : [address] [address] Trop T hs interp Insignificant DENNIS JOSUE Comment:Testing performed by : [address] [address] Blood 04/06/2024 11:1 2 AM CONTENT ARCHITECT 04/06/2024 11:21 AM CONTENT ARCHITECT us Lavon Castaneda MD LAB BLOOD ORDERABLE S Final Result DENNIS [address] [facility] Department [place] [address] * XR Chest 1 Vw Portable (04/06/2024 8:55 AM CONTENT ARCHITECT) Anatomical Region Laterality Modality Body, Chest N/A Computed Radiogr aphy 04/06/2024 9:06 AM CONTENT ARCHITECT Narrative 04/06/2024 9:06 AM CONTENT ARCHITECT EXAM DESCRIPTION: XR CHEST 1 VIEW REASON [...] signed by Albert ORNELAS: CECI Report ID: [id number] Reading Location: [place] [address] Procedure Note Albert Lopes MD - 04/06/2024 [...] Albert Lopes M.D. KR: CECI Report ID: [id number] Reading Location: [id number] Lavon COOPER XR PROCEDURES F inal Result * XR Shoulder Left 2 or More Views (04/06/2024 8:55 AM CONTENT ARCHITECT) Anatomical Region Laterality Modality Upper Extremities, Shoulder Left Comp uted Radiography 04/06/2024 9:06 AM CONTENT ARCHITECT Narrative 04/06/2024 9:07 AM CONTENT ARCHITECT EXAM DESCRIPTION: XR SHOULDER LEFT 2 OR [...] Albert Lopes M.D. KR: CECI Report ID: [id number] Reading Location: [id number] Procedure Note Albert Lopes MD - 04/06/2024 [...] Albert Lopes M.D. KR: CECI Report ID: [id number] Reading Location: [id number] Lavon Weber Castaneda MD IMG XR PROCEDURES F inal Result * (ABNORMAL) Troponin T high-sensitivity series (baseline, 2hr, 4hr, 6hr) (04/06/2024 8:24 AM CONTENT ARCHITECT) Trop T hs 200(H) <=14 ng/L Comment: Interpretive Data For further hscTnT resources including the diagnostic algorithm and an aid in interpretation, copy and paste this link: https://nrl.testcatalog.org/show/hsTrop Current Interpretive Data last revised 2020. Testing performed by: [facility], [address] [place] [address]., [address] Blood 04/06/2024 8:24 AM CONTENT ARCHITECT 04/06/2024 8:33 AM CONTENT ARCHITECT us Lavon Castaneda MD LAB BLOOD ORDERABLE S Edited Result - Final YVONNEEDV [address] [facility] Department [place] [address] * (ABNORMAL) eGFR (04/06/2024 8:24 AM CONTENT ARCHITECT) eGFR 3(L) >=60 mL/min/1. 73 m2 Comment: [...] was last reviewed 2020. Testing performed by: [facility], [address] [place] [address]., [address] Blood 04/06/2024 8:24 AM CONTENT ARCHITECT 04/06/2024 8:33 AM CONTENT ARCHITECT us Lavon Castaneda MD LAB BLOOD ORDERABLE S Final Result [facility] [address] [facility] Department [place] [address] * (ABNORMAL) Differential, auto (04/06/2024 8:24 AM CONTENT ARCHITECT) Neutrophil abs 3.2 1.5 - 6.5 K/cumm Comment:Testing performed by : [address] [address] Imm gran abs 0.0 0.0 - 0.1 K/cumm DENNIS Comment:Testing performed by : [address] [address] Lymphocyte abs 2.2 0.8 - 3.3 K/cumm DENNIS Comment:Testing performed by : [address] [address] Monocyte abs 0.4 0.2 - 0.8 K/cumm DENNIS Comment:Testing performed by : [address] [address] Eosinophil abs 0.6(H) 0.0 - 0.5 K/cumm DENNIS Comment:Testing performed by : [address] [address] Basophil abs 0.1 0.0 - 0.1 K/cumm DENNIS Comment:Testing performed by : [address] [address] Neutrophil pct 49.0 % DENNIS Comment: Interpretive Data Percent cell count reference ranges are not reported, since discordance with absolute values may lead to misinterpretation of CBC data. Current Interpretive Data was last revised on 2017. Testing performed by: [address] [address] Imm gran pct 0.5 % DENNIS Comment: Interpretive Data Percent cell count reference ranges are not reported, since discordance with absolute values may lead to misinterpretation of CBC data. Current Interpretive Data was last revised on 2017. Testing performed by: [address] [address] Lymphocyte pct 34.0 % [facility] Comment: Interpretive Data Percent cell count reference ranges are not reported, since discordance with absolute values may lead to misinterpretation of CBC data. Current Interpretive Data was last revised on 2017. Testing performed by: [address] [address] Monocyte pct 6.6 % [facility] Comment: Interpretive Data Percent cell count reference ranges are not reported, since discordance with absolute values may lead to misinterpretation of CBC data. Current Interpretive Data was last revised on 2017. Testing performed by: [address] [address] Eosinophil pct 9.0 % [facility] Comment: Interpretive Data Percent cell count reference ranges are not reported, since discordance with absolute values may lead to misinterpretation of CBC data. Current Interpretive Data was last revised on 2017. Testing performed by: [address] [address] Basophil pct 0.9 % [facility] Comment: Interpretive Data Percent cell count reference ranges are not reported, since discordance with absolute values may lead to misinterpretation of CBC data. Current Interpretive Data was last revised on 2017. Testing performed by: [address] [address] Blood 04/06/2024 8:24 AM CONTENT ARCHITECT 04/06/2024 8:33 AM CONTENT ARCHITECT us Lavon Castaneda MD LAB BLOOD ORDERABLE S Final Result DENNIS JOSUE [address] [facility] Department [place] [address] * (ABNORMAL) CBC with auto differential (04/06/2024 8:24 AM CONTENT ARCHITECT) WBC 6.5 3.8 - 9.9 K/cumm Comment:Testing performed by : [address] [address] Hgb 10.4(L) 11.9 - 15.5 g/dL DENNIS Comment:Testing performed by : [address] [address] Hct 33.0(L) 35.6 - 45.5 % [facility]ER[facility] Comment:Testing performed by : [address] [address] Plt 277 150 - 400 K/cumm [facility]ER[facility] Comment:Testing performed by : [address] [address] MPV 9.6 9.1 - 12.3 fL CERARACELY Comment:Testing performed by : [address] [address] RBC 3.98 3.90 - 5.20 M/cumm CER[facility]ELY Comment:Testing performed by : [address] [address] MCV 82.9 81.3 - 96.4 fL CERAR[facility]ELY Comment:Testing performed by : [address] [address] MCH 26.1(L) 27.1 - 33.3 pg CERARACELY Comment:Testing performed by : [address] [address] MCHC 31.5(L) 32.3 - 35.7 g/dL CERARACELY Comment:Testing performed by : [address], [address] RDW CV 15.8(H) 11.1 - 14.9 % CERARACELY Comment:Testing performed by : [address], [address] RDW SD 47.7 35.7 - 48.1 fL CERARACELY Comment:Testing performed by : [address] [address] NRBC abs 0.00 0.00 - 0.01 K/cumm DENNIS Comment:Testing performed by : [address], [address] Blood 04/06/2024 8:24 AM CONTENT ARCHITECT 04/06/2024 8:33 AM CONTENT ARCHITECT Lavon Castaneda MD LAB BLOOD ORDERABLE S Final Result Performing Organization Address [facility] de Phone Number [address] Laboratories [place] [place] [address] * hCG, blood, quantitative (04/06/2024 8:24 AM CONTENT ARCHITECT) Pathologist [facility] hCG, quant <5.0 0.0 - 5.0 IUnits/L Comment: Interpretive Data Male: < 5 IU/L Non- premenopausal Female: <5 IU/L The Rudy hCG Beta Quant assay procedure was used. Results from different manufacturers or methods may not be comparable. Serial testing should be performed using the same method. Interpretive Data was last revised on 2023 Testing performed by: [address] [address] Blood 04/06/2024 8:24 AM CONTENT ARCHITECT 04/06/2024 8:33 AM CONTENT ARCHITECT Lavon Castaneda MD LAB BLOOD ORDERABLE S Edited Result - Final Performing Organization Address [facility] de Phone Number [address] [address] * (ABNORMAL) Basic metabolic panel (04/06/2024 8:24 AM CONTENT ARCHITECT) [facility] Sodium 139 135 - 145 mmol/L Comment:Testing performed by : [address] [address] Potassium, pl 4.5 3.3 - 4.9 mmol/L DENNIS JOSUE Comment:Testing performed by : [address] [address] Chloride 103 97 - 110 mmol/L DENNIS Comment:Testing performed by : [address] [address] CO2 21(L) 22 - 32 mmol/L DENNIS Comment:Testing performed by : [address] [address] Anion gap 15 2 - 15 mmol/L DENNIS Comment:Testing performed by : [address] [address] BUN 54(H) 6 - 25 mg/dL DENNIS Comment:Testing performed by : [address] [address] Creatinine 13.60(H) 0.60 - 1.10 mg/dL DENNIS Comment:Testing performed by : [address] [address] Glucose 95 70 - 199 mg/dL DENNIS [...] was last revised 2022. Testing performed by: [address] [address] Calcium 9.3 8.5 - 10.3 mg/dL DENNIS Comment:Testing performed by : [address] [address] Blood 04/06/2024 8:24 AM CONTENT ARCHITECT 04/06/2024 8:33 AM CONTENT ARCHITECT us Lavon Castaneda MD LAB BLOOD ORDERABLE S Final Result DENNIS [address] [facility] Department of Laboratories [place], [place] [id number] * ECG 12 lead (04/06/2024 8:18 AM CONTENT ARCHITECT) Pathologist [facility] Ventricular Rate EKG/Min 74 BPM [facility] Atrial Rate 74 BPM [facility] [place]-Interval (MSEC) 148 ms [facility] QRS-Interval (MSEC) 70 ms [facility] QT-Interval (MSEC) 422 ms [facility] QTc 468 ms [facility] P [place] 65 degrees [facility] R [place] 1 degrees [facility] T [place] 31 degrees [facility] Diagnosis Normal sinus rhythm Low voltage QRS Septal infarct , age undetermined Abnormal ECG When compared with ECG of 06-MAR-2023 10:29, No significant change was found Confirmed by MEREDITH CANO M.D. ([id number]) on 04/08/2024 7:23:12 PM [facility] 04/06/2024 8:18 AM CONTENT ARCHITECT 04/08/2024 7:23 PM CONTENT ARCHITECT us Lavon Castaneda MD ECG ORDERABLES Fin al Result Performing Organization Address City/[facility] Co de Phone Number [facility] * HLA Antibody Screen by PRA or SAB per Schedule (Class I and Class II) (03/29/2024 10:00 AM CONTENT ARCHITECT) Blood 03/29/2024 10:0 0 AM CONTENT ARCHITECT Narrative [facility] - CONTENT ARCHITECT Sample received in lab. Single Antigen Antibody Screen ordered. us Bashir Alston MD LAB BLOOD ORDERABLES Final R esult Performing Organization Address [facility] Co de Phone Number [facility] * HLA Antibody Screen - SAB (Class I and Class II) (03/29/2024 10:00 AM CONTENT ARCHITECT) Class I Treatment EDTA H[facility] Class I [...] per SSO. [facility] 03/29/2024 10:0 0 AM CONTENT ARCHITECT 04/04/2024 10:33 AM CONTENT ARCHITECT Narrative [facility]IST[facility] - 04/04/2024 10:33 AM CONTENT ARCHITECT Single-antigen HLA antibody screen is performed on serum samples using a method developed and validated by the [facility] laboratory based on an FDA-approved IVD kit (LABScreen Single-Antigen, [place], [place], [place]). All patient serum samples are pretreated with EDTA before the screen to prevent complement interference. Additional serum treatments, such as adsorption and DTT treatment, may be performed as indicated. Interpretive comments: Low risk: MFI [id number]. Moderate risk: MFI [id number]. Increased risk: MFI >/= 5000. The presence [...] antigens to avoid. Testing performed at the [facility], [address] [place] [address], 5th floor, [place], [address]. CLIA # [id number]. Amber Berry, Ph.D., Stock And Station Agent, [facility] Laboratory Jonathan Brennan M.D., Ph.D., Yarn Dry Room Worker, [facility] Rehana Alarcon, Ph.D., CLIA Yarn Dry Room Worker, [facility] Current methodology and interpretive comments last revised on 03/20/2022. us Bashir Alston MD LAB BLOOD ORDERABLES Edited Result - Final [facility] * Hepatitis C antibody Blood (02/16/2024 11:34 AM CONTENT ARCHITECT) Hep C Ab Nonreactive Nonreactive Comment:Antibodies to HCV no t detected. Does NOT exclude the possibility of recent exposure to HCV. Current interpretive data was last revised on 21 Blood 02/16/2024 11:3 4 AM CONTENT ARCHITECT 02/16/2024 11:45 AM CONTENT ARCHITECT us Tonya Hammonds MD LAB MICROBIOLOGY - GENERAL ORDERABLES Final Result [facility] Department of Laboratories [place], [place] [id number] * (ABNORMAL) Hemoglobin A1c (02/16/2024 11:34 AM CONTENT ARCHITECT) Hgb A1C 6.2(H) 4.0 - 5.6 % Estimated Average Glucose 131 mg/dL DENNIS [facility] Comment: The ADA recommends reporting an estimated Average Glucose (eAG) with all Hemoglobin A1c results using the equation derived from a study of 507 normal and diabetic adults. Minority populations were underrepresented and children were not included. (Diabetes Care 2020; 43(S1): S66-S76). The eAG is not equivalent to a fasting glucose. Blood 02/16/2024 11:3 4 AM CONTENT ARCHITECT 02/16/2024 11:45 AM CONTENT ARCHITECT us Tonya Hammonds MD LAB BLOOD ORDERABLE S Final Result [facility] Department [place] [address] * Colonoscopy (07/21/2023 10:23 AM CDT) Anatomical Region Laterality Modality Other Narrative Procedure Note Haritha Stover MD - 07/21/2023 10:23 AM CDT [facility] Patient Name: Bakari Smith Procedure Date: 07/21/2023 10:23 AM Date of : 1980 Admit Type: Outpatient Age: 43 Gender: Female Attending MD: Haritha Stover M.D. Room: [facility] ENDOSCOPY ROOM 02 Note Status: Finalized [...] The scope was passed under direct vision.The [id number] Colonoscope was introducedthrough the anus and advanced to the the cecum, identifiedby appendiceal orifice and ileocecal valve. The colonoscopy was performed without difficulty. The patient tolerated the procedure well. The qualityof the bowel preparation was evaluated using the BBPS ([place] Bowel Preparation Scale) with scores of:Right Colon [...] On: 07/21/2023 10:23 AM Recognized by the [place] [employer] for promoting quality in endoscopy Haritha Stover MD ENDOSCOPY PROCEDURES Final Res ult * HM MAMMOGRAPHY (06/04/2021) Impressions Rashida Schneider - 06/04/2021 IMPRESSION: 1. Benign mammogram. READ BY: NINO BAJWA MD 06/05/2021 Historical Provider HEALTH MAINTENANCE Final Result * Lipid panel (04/30/2021 12:22 PM CONTENT ARCHITECT) Cholesterol 139 30 - 199 mg/dL DENNIS [...] revised on 2017. HDL 70 >=40 mg/dL [facility] Comment: Interpretive Data Ages < or = [...] on 2017. LDL, calculated 56 <=129 mg/dL [facility] Comment: Interpretive Data Ages < or = [...] revised on 2017. Non-HDL Cholesterol 69 mg/dL [facility] Comment: Interpretive Data Ages < or = [...] last revised on 2017. Chol/HDL ratio 2 [facility] Blood 04/30/2021 12:2 2 PM CONTENT ARCHITECT 04/30/2021 1:03 PM CONTENT ARCHITECT us Ren Pelayo MD LAB BLOOD ORDERABLES Final Result [place] [facility] [place] [address] from Last 3 Months or Most Recently Relevant to Health Maintenance Insurance [employer] [facility] MEDICARE MEDICARE [facility] MEDICARE [facility] MEDICARE SUPPLEMENT MEDICARE [facility] Address: [address] [place] [phone] [facility] MEDICARE SUPPLEMENT Advance Directives For more information, please contact: [phone] * Full Code (Latest Code Status on File) Date Activated Date Inactivated Comments 07/21/2023 9:59 AM 07/21/2023 3:56 PM Care Teams Cabinetmaker Maintenance Relationship Specialty Start Date End Date No, Physician PCP - General 02/16/24 Almita Rizzo, RN [address] [place] [address] Mailroom Clerk 04/04/21 Beth Fernandez MD [address] [facility] [address] [place] [address] Referring Physician Nephrology 04/04/21 Maday Oviedo MD [address] [facility] [address] [place] [address] Neurology 09/12/22 Tomasz Scott DO [address] [facility] [address] [facility] [address] [place] [address] Post Closer Cardiology 09/16/22 Meir Nazario MD [address] [facility] [address] [place] [address] Obstetrics and Gynecology 04/11/24
--- OUTSIDE RECORDS SUMMARY | 2024-06-18 13:12 | XMS_ITS | Clinical Summary ---
Author Organization [facility] ([facility] Address [address] [place] [address] Care Team Providers Care System Software Developer Name Role Phone Almita Rizzo RN Unavailable [phone] Beth Fernandez MD Unavailable Maday Oviedo MD Unavailable [phone] Tomasz Scott DO Unavailable [phone] No, Physician Primary Care Provider [phone] Meir Nazario MD Unavailable [phone] Allergies Active Allergy Reactions Criticality Noted Date [...] (04/10/2022): Added automatically from request for surgery [id number] Hypertension 2021 Stage 5 chronic kidney disease [...] CDT - 06/14/2024 8:32 PM CDT Emergency [facility] Emergency Department [address] [place] [id number] Constipation, unspecified constipation type (Primary Dx); Abdominal pain; Anasarca Discharge Disposition: Discharge to home or self care 05/27/2024 10:00 AM CDT - 05/27/2024 11:59 PM CDT Hospital Encounter [address] [address] Pre-kidney transplant, patient on transplant list; ESRD (end stage renal disease) (HCC) Discharge Disposition: Discharge to home or self care 05/17/[address] [facility] Transplant Kidney [address] [facility] [address] 90-29-910 [place] [address] Almita Rizzo RN Waitlist Maintenance 04/29/[address] [facility] [address] [facility] [address] 90-29-910 [place] [address] Hien Mireles 04/29/[address] [facility] [address] [facility] [address] 90-29-910 [place] [address] Suad Hou 04/11/[address] [facility] [address] [facility] [address] 90-29-910 [place] [address] Almita Rizzo RN Waitlist Maintenance 04/06/2024 11:14 AM CARETAKER - 04/06/2024 12:22 PM [facility] Emergency [facility] Emergency Department [address] [place] [id number] Lavon Castaneda MD Pain of left upper extremity (Primary Dx) Discharge Disposition: Discharge to home or self care 03/29/2024 10:00 AM CARETAKER - 03/29/2024 11:59 PM CARETAKER Hospital Encounter [facility] [address] [place] [address] Pre-transplant evaluation for kidney transplant; ESRD (end stage renal disease) ([facility]) Discharge Disposition: Discharge to home or self care 03/22/[address] [facility] Transplant Kidney [address] [facility] [address] [id number] [place] [address] Almita Rizzo RN Waitlist Maintenance from Last [...] on file Legal Sex Female 11:50 PM CARETAKER Gender Identity Not on file Sexual Orientation [...] this topic Medical Devices Implanted Type Area Acid Wash Operator Device Identifier Shelf Expiration Date Model / Serial / Lot [employer] [id number] [place] 15fr 62cm 2 Cuff Radiopaque Peritoneal Curl Catheter - Sn/A - [id number] Implanted:Qty : 1 on 03/14/2021 by Gildardo Leggett MD at [facility] Catheter N/A: Abdomen [employer] 07/01/2025 [id number] / N/A / [id number] Description:Peritoneal Dialy sis Catheter, Curl Cath, 2 Cuffs Graft Vasc 45cm 4-6mm [place] Acuseal Eptfe 3 Layer Kink Rst - [id number] - [id number] Implanted:Qty : 1 on 05/08/2022 by Uche Katz MD at [facility] Graft Left: Arm Wl [place] [employer] [id number] 05/21/2024 [id number] / [id number] / 00 Procedures Procedure Name Priority Date/Time [...] T HIGH-SENSITIVITY 2-HOUR Timed 04/06/2024 11:12 AM CARETAKER XR SHOULDER LEFT 2 OR MORE VIEWS ED 04/06/2024 8:55 AM CARETAKER XR CHEST 1 VIEW ED 04/06/2024 8:55 AM CARETAKER EGFR STAT 04/06/2024 8:24 AM CARETAKER DIFFERENTIAL AUTO STAT 04/06/2024 8:2 4 AM CARETAKER HCG, BLOOD, QUANTITATIVE STAT 04/06/2024 8:24 AM CARETAKER TROPONIN T HIGH-SENSITIVITY SERIES (BASELINE, 2HR, 4HR, 6HR) STAT 04/06/2024 8:24 AM CARETAKER BASIC METABOLIC PANEL STAT 04/06/2024 8:24 AM CARETAKER CBC WITH AUTO DIFFERENTIAL STAT 04/06/2024 8:24 AM CARETAKER ECG 12-LEAD STAT 04/06/2024 8:18 AM CARETAKER HLA ANTIBODY SCREEN - SAB (CLASS I AND CLASS II) Routine 03/29/2024 10:00 AM CARETAKER Pre-transplant evaluation for kidney transplant ESRD (end stage renal disease) (HCC) HLA ANTIBODY SCREEN BY PRA OR SAB PER SCHEDULE (CLASS I AND CLASS II) Routine 03/29/2024 10:00 AM CARETAKER Pre-transplant evaluation for kidney transplant ESRD (end stage renal disease) (HCC) HEPATITIS C ANTIBODY Routine 02/16/2024 11:34 AM CARETAKER Pre-kidney transplant, patient on transplant list ESRD (end stage renal disease) (HCC) HEMOGLOBIN A1C Routine 02/16/2024 11:34 AM CARETAKER Pre-kidney transplant, patient on transplant list ESRD (end stage renal disease) (HCC) COLONOSCOPY 07/21/2023 10:23 AM CDT HM MAMMOGRAPHY Routine 06/04/2021 LIPID PANEL Routine 04/30/2021 12:22 PM CARETAKER Pre-transplant evaluation for kidney transplant End stage [...] Albert Tovar M.D. KT: VIRIDIANA Report ID: [id number] Reading Location: [id number] Procedure Note Albert Tovar MD - 06/14/2024 [...] Albert Tovar M.D. KT: KT Report ID: [id number] Reading Location: [place] [address] PROCEDURES Final Resu [...] ur Straw Yellow Comment:Testing performed by : [address] [address] Clarity, ur Clear Clear DENNIS Comment:Testing performed by : [address] [address] Specific gravity, ur 1.008 1.003 - 1.030 DENNIS Comment:Testing performed by : [address] [address] pH, urine 8.0 DENNIS Comment: Interpretive Data U rine pH is affected by diet, medications, systemic acid-base disturbances, and renal tubular function. pH may affect urinary stone formation. For example, urine pH below 6.0 may help reduce the tendency for calcium phosphate stones and pH greater than 6.0 may reduce the tendency for uric acid stone formation. Source: [employer] Current Interpretive Data was last revised on 2017 Testing performed by: [address] [address] Protein, ur ql 2+(A) Negative DENNIS Comment:Testing performed by : [place] [address], [place]., [address] Glucose, ur ql 3+(A) Negative DENNIS JOSUE Comment:Testing performed by : [address], [place]., [address] Ketones, ur Negative Negative DENNIS Comment:Testing performed by : [address], [place]., [address] Bilirubin, ur Negative Negative DENNIS Comment:Testing performed by : [address], [place]., [address] Blood, ur 2+(A) Negative DENNIS JOSUE Comment:Testing performed by : [address], [place]., [address] Urobilinogen, ur <2.0 <2.0 mg/dL DENNIS JOSUE Comment:Testing performed by : [address], [place]., [address] Nitrite, ur Negative Negative DENNIS JOSUE Comment:Testing performed by : [address], [place]., [address] Leukocyte esterase, ur Negative Negative DENNIS Comment:Testing performed by : [address], [place]., [address] UA reflex comment Reflex to microscopic UA will be performed. DENNIS Comment:Testing performed by : [address], [place]., [address] Urine 06/14/2024 4:49 PM CDT 06/14/2024 4:53 PM CDT us Raisa RAPHAEL LAB MICROBIOLOGY - GENERAL O RDERABLES Final Result DENNIS [address] [facility] Department [place] [address] * (ABNORMAL) Urinalysis, microscopic only (06/14/2024 4:49 PM CDT) WBC, ur 0-5 0 - 5 /HPF Comment:Testing performed by : [address], [place]., [address] RBC, ur 0-2 0 - 2 /HPF DENNIS JOSUE Comment:Testing performed by : [facility], [address] [place] [address]., [address] Epithelial cells, squamous, ur >50(A) 0 - 5 /HPF DENNIS Comment:Testing performed by : [address] [address] Culture Reflex Comment Reflex conditions for urine culture (WBC >10) not met. DENNIS Comment:Testing performed by : [address] [address] Urine 06/14/2024 4:49 PM CDT 06/14/2024 4:53 PM CDT us Raisa RAPHAEL LAB URINE ORDERABLES Final R esult DENNIS JOSUE [facility] Department [place] [address] * (ABNORMAL) eGFR (06/14/2024 4:36 PM CDT) [...] was last reviewed 2020. Testing performed by: [address] [address] Blood 06/14/2024 4:36 PM CDT 06/14/2024 4:42 PM CDT us Raisa RAPHAEL LAB BLOOD ORDERABLES Final R esult DENNIS [address] [facility] Department [place] [address] * Differential, auto (06/14/2024 4:36 PM CDT) Neutrophil abs 6.50 1.50 - 6.50 K/cumm Comment:Testing performed by : [address] [address] Imm gran abs 0.04 0.00 - 0.10 K/cumm DENNIS Comment:Testing performed by : [address] [address] Lymphocyte abs 1.95 0.80 - 3.30 K/cumm DENNIS Comment:Testing performed by : [address] [address] Monocyte abs 0.60 0.20 - 0.80 K/cumm DENNIS Comment:Testing performed by : [address] [address] Eosinophil abs 0.31 0.00 - 0.50 K/cumm DENNIS Comment:Testing performed by : [address] [address] Basophil abs 0.06 0.00 - 0.10 K/cumm DENNIS Comment:Testing performed by : [address] [address] Neutrophil pct 68.8 % DENNIS Comment: Interpretive Data Percent cell count reference ranges are not reported, since discordance with absolute values may lead to misinterpretation of CBC data. Current Interpretive Data was last revised on 2017. Testing performed by: [address] [address] Imm gran pct 0.4 % DENNIS Comment: Interpretive Data Percent cell count reference ranges are not reported, since discordance with absolute values may lead to misinterpretation of CBC data. Current Interpretive Data was last revised on 2017. Testing performed by: [address] [address] Lymphocyte pct 20.6 % [facility] Comment: Interpretive Data Percent cell count reference ranges are not reported, since discordance with absolute values may lead to misinterpretation of CBC data. Current Interpretive Data was last revised on 2017. Testing performed by: [address] [address] Monocyte pct 6.3 % [facility] Comment: Interpretive Data Percent cell count reference ranges are not reported, since discordance with absolute values may lead to misinterpretation of CBC data. Current Interpretive Data was last revised on 2017. Testing performed by: [address] [address] Eosinophil pct 3.3 % [facility] Comment: Interpretive Data Percent cell count reference ranges are not reported, since discordance with absolute values may lead to misinterpretation of CBC data. Current Interpretive Data was last revised on 2017. Testing performed by: [address] [address] Basophil pct 0.6 % [facility] Comment: Interpretive Data Percent cell count reference ranges are not reported, since discordance with absolute values may lead to misinterpretation of CBC data. Current Interpretive Data was last revised on 2017. Testing performed by: [address] [address] Blood 06/14/2024 4:36 PM CDT 06/14/2024 4:42 PM CDT us Raisa RAPHAEL LAB BLOOD ORDERABLES Final R esult [facility] [address] [facility] Department [place] [address] * (ABNORMAL) CBC with auto differential (06/14/2024 4:36 PM CDT) WBC 9.46 3.80 - 9.90 K/cumm Comment:Testing performed by : [address] [address] Hgb 9.3(L) 11.9 - 15.5 g/dL DENNIS Comment:Testing performed by : [address] [address] Hct 30.1(L) 35.6 - 45.5 % DNENIS Comment:Testing performed by : [address] [address] Plt 325 150 - 400 K/cumm DENNIS Comment:Testing performed by : [address] [address] MPV 9.1 9.1 - 12.3 fL DENNIS Comment:Testing performed by : [address] [address] RBC 3.59(L) 3.90 - 5.20 M/cumm DENNIS Comment:Testing performed by : [address] [address] MCV 83.8 81.3 - 96.4 fL DENNIS Comment:Testing performed by : [address] [address] MCH 25.9(L) 27.1 - 33.3 pg DENNIS Comment:Testing performed by : [address] [address] MCHC 30.9(L) 32.3 - 35.7 g/dL DENNIS Comment:Testing performed by : [address] [address] RDW CV 15.0(H) 11.1 - 14.9 % DENNIS Comment:Testing performed by : [address] [address] RDW SD 45.9 35.7 - 48.1 fL DENNIS Comment:Testing performed by : [address] [address] NRBC abs 0.00 0.00 - 0.01 K/cumm DENNIS Comment:Testing performed by : [address] [address] Blood 06/14/2024 4:36 PM CDT 06/14/2024 4:42 PM CDT Raisa RAPHAEL LAB BLOOD ORDERABLES Final R esult Performing Organization Address City/[facility]/ZIP Co de Phone Number DENNIS [facility] [place] [address] * Lipase (06/14/2024 4:36 PM CDT) Pathologist [facility] Lipase 49 10 - 99 Units/L Comment: Hemolyzed; result might be falsely decreased Testing performed by: [address] [address] Blood 06/14/2024 4:36 PM CDT 06/14/2024 4:42 PM CDT us Raisa RAPHAEL LAB BLOOD ORDERABLES Final R esult Performing Organization Address [facility] Co de Phone Number DENNIS [address] [place] [address] * (ABNORMAL) Comprehensive metabolic panel (06/14/2024 4:36 PM CDT) Pathologist [facility] Sodium 139 135 - 145 mmol/L Comment:Testing performed by : [address] [address] Potassium, pl 4.5 3.3 - 4.9 mmol/L DENNIS Comment: Hemolyzed; Potassium value may be falsely elevated by as much as 1.0 mmol/L. Suggest redraw and reanalysis. Testing performed by: [address] [address] Chloride 101 97 - 110 mmol/L DENNIS Comment:Testing performed by : [address] [address] CO2 26 22 - 32 mmol/L DENNIS Comment:Testing performed by : [address] [address] Anion gap 12 2 - 15 mmol/L DENNIS Comment:Testing performed by : [address] [address] BUN 50(H) 6 - 25 mg/dL DENNIS Comment:Testing performed by : [address] [address] Creatinine 11.80(H) 0.60 - 1.10 mg/dL DENNIS Comment:Testing performed by : [address] [address] Glucose 179 70 - 199 mg/dL [facility] Comment: Interpretive Data Fasting glucose [...] was last revised 2022. Testing performed by: [address] [address] Calcium 8.6 8.5 - 10.3 mg/dL [facility] Comment:Testing performed by : [address] [address] Bilirubin, total <0.2 0.1 - 1.2 mg/dL DENNIS Comment:Testing performed by : [address] [address] Protein, pl 6.5 6.5 - 8.5 g/dL DENNIS Comment:Testing performed by : [address] [address] Albumin 2.3(L) 3.5 - 5.0 g/dL [facility] Comment:Testing performed by : [address] [address] Alk phos 170(H) 40 - 130 Units/L DENNIS Comment:Testing performed by : [address] [address] ALT NOTE 7 - 45 Units/L DENNIS Comment: Credited; Hemolyzed Specimen Testing performed by: [address] [address] AST 24 10 - 45 Units/L [facility] Comment: Hemolyzed; result may be falsely elevated Testing performed by: [facility], [address] [place] [address]., [address] Blood 06/14/2024 4:36 PM CDT 06/14/2024 4:42 PM CDT us Raisa RAPHAEL LAB BLOOD ORDERABLES Final R esult DENNIS [address] [facility] Department [place] [address] * HLA Antibody Screen by PRA or SAB per Schedule (Class I and Class II) (05/27/2024 10:00 AM CDT) Blood 05/27/2024 10:0 0 AM CDT Narrative HISTOTRAC - CARETAKER Sample received in lab. Single Antigen Antibody Screen ordered. us Miriam Garner MD LAB BLOOD ORDERAB LES Final Result HISTOTRAC * HLA Antibody Screen - SAB (Class I and Class II) (05/27/2024 10:00 AM CDT) Pathologist [facility] Class I Treatment EDTA HISTOTRAC Class I [...] a method developed and validated by the [facility] HLA laboratory based on an FDA-approved IVD kit (LABScreen Single-Antigen, [employer], [place], [place]). All patient serum samples are pretreated with EDTA before the screen to prevent complement interference. Additional serum treatments, such as adsorption and DTT treatment, may be performed as indicated. Interpretive comments: Low risk: MFI 8919-5231. Moderate risk: MFI 3469-2424. Increased risk: MFI >/= 5000. The presence [...] antigens to avoid. Testing performed at the [facility], [address] [place] [address], 5th floor, [place], [address]. CLIA # [id number]. Amber Berry, Ph.D., Ore Roaster, HLA Laboratory Jonathan Brennan M.D., Ph.D., Screen Examiner, HLA Laboratory Rehana Alarcon, Ph.D., CLIA Screen Examiner, [facility] Current methodology and interpretive comments last revised on 03/20/2022. Miriam Garner MD LAB BLOOD ORDERAB LES Final Result HISTOTRAC * (ABNORMAL) Troponin T high-sensitivity 2-hour (04/06/2024 11:12 AM CARETAKER) Trop T hs 195(H) <=14 ng/L Comment: Interpretive Data For further hscTnT resources including the diagnostic algorithm and an aid in interpretation, copy and paste this link: https://nrl.testcatalog.org/show/hsTrop Current Interpretive Data last revised 2020. Testing performed by: [facility], [address] [place] [address]., [address] Trop T hs pct delta -3 % DENNIS Comment:Testing performed by : [facility], [address] [place] [address]., [address] Trop T hs interp Insignificant DENNIS JOSUE Comment:Testing performed by : [facility], [address] [place] [address], [place]., [address] Blood 04/06/2024 11:1 2 AM CARETAKER 04/06/2024 11:21 AM CARETAKER us Lavon Castaneda MD LAB BLOOD ORDERABLE S Final Result DENNIS [address] [facility] Department [place] [address] * XR Chest 1 Vw Portable (04/06/2024 8:55 AM CARETAKER) Anatomical Region Laterality Modality Body, Chest N/A Computed Radiogr aphy 04/06/2024 9:06 AM CARETAKER Narrative 04/06/2024 9:06 AM CARETAKER EXAM DESCRIPTION: XR CHEST 1 VIEW REASON [...] Albert Lopes M.D. KR: CECI Report ID: [id number] Reading Location: [id number] Procedure Note Albert Lopes MD - 04/06/2024 [...] Albert Lopes M.D. KR: CECI Report ID: [id number] Reading Location: [id number] Lavon Castaneda MD IMG XR PROCEDURES F inal Result * XR Shoulder Left 2 or More Views (04/06/2024 8:55 AM CARETAKER) Anatomical Region Laterality Modality Upper Extremities, Shoulder Left Comp uted Radiography 04/06/2024 9:06 AM CARETAKER Narrative 04/06/2024 9:07 AM CARETAKER EXAM DESCRIPTION: XR SHOULDER LEFT 2 OR [...] Albert Lopes M.D. KR: CECI Report ID: [id number] Reading Location: [id number] Procedure Note Albert Lopes MD - 04/06/2024 [...] Albert Lopes M.D. KR: CECI Report ID: [id number] Reading Location: [id number] us Lavon Castaneda MD IMG XR PROCEDURES F inal Result * (ABNORMAL) Troponin T high-sensitivity series (baseline, 2hr, 4hr, 6hr) (04/06/2024 8:24 AM CARETAKER) Trop T hs 200(H) <=14 ng/L Comment: Interpretive Data For further hscTnT resources including the diagnostic algorithm and an aid in interpretation, copy and paste this link: https://nrl.testcatalog.org/show/hsTrop Current Interpretive Data last revised 2020. Testing performed by: [facility], [address] [place] [address]., [address] Blood 04/06/2024 8:24 AM CARETAKER 04/06/2024 8:33 AM CARETAKER us Lavon Castaneda MD LAB BLOOD ORDERABLE S Edited Result - Final [facility] [address] [facility] Department [place] [address] * (ABNORMAL) eGFR (04/06/2024 8:24 AM CARETAKER) eGFR 3(L) >=60 mL/min/1. 73 m2 Comment: [...] was last reviewed 2020. Testing performed by: [address] [address] Blood 04/06/2024 8:24 AM CARETAKER 04/06/2024 8:33 AM CARETAKER us Lavon Castaneda MD LAB BLOOD ORDERABLE S Final Result DENNIS [address] [facility] Department [place] [address] * (ABNORMAL) Differential, auto (04/06/2024 8:24 AM CARETAKER) Neutrophil abs 3.2 1.5 - 6.5 K/cumm Comment:Testing performed by : [address] [address] Imm gran abs 0.0 0.0 - 0.1 K/cumm DENNIS Comment:Testing performed by : [address] [address] Lymphocyte abs 2.2 0.8 - 3.3 K/cumm DENNIS Comment:Testing performed by : [address] [address] Monocyte abs 0.4 0.2 - 0.8 K/cumm DENNIS Comment:Testing performed by : [address] [address] Eosinophil abs 0.6(H) 0.0 - 0.5 K/cumm DENNIS Comment:Testing performed by : [address] [address] Basophil abs 0.1 0.0 - 0.1 K/cumm DENNIS Comment:Testing performed by : [address] [address] Neutrophil pct 49.0 % DENNIS Comment: Interpretive Data Percent cell count reference ranges are not reported, since discordance with absolute values may lead to misinterpretation of CBC data. Current Interpretive Data was last revised on 2017. Testing performed by: [address] [address] Imm gran pct 0.5 % [facility] Comment: Interpretive Data Percent cell count reference ranges are not reported, since discordance with absolute values may lead to misinterpretation of CBC data. Current Interpretive Data was last revised on 2017. Testing performed by: [address] [address] Lymphocyte pct 34.0 % [facility] Comment: Interpretive Data Percent cell count reference ranges are not reported, since discordance with absolute values may lead to misinterpretation of CBC data. Current Interpretive Data was last revised on 2017. Testing performed by: [address] [address] Monocyte pct 6.6 % [facility] Comment: Interpretive Data Percent cell count reference ranges are not reported, since discordance with absolute values may lead to misinterpretation of CBC data. Current Interpretive Data was last revised on 2017. Testing performed by: [address] [address] Eosinophil pct 9.0 % [facility] Comment: Interpretive Data Percent cell count reference ranges are not reported, since discordance with absolute values may lead to misinterpretation of CBC data. Current Interpretive Data was last revised on 2017. Testing performed by: [address] [address] Basophil pct 0.9 % [facility] Comment: Interpretive Data Percent cell count reference ranges are not reported, since discordance with absolute values may lead to misinterpretation of CBC data. Current Interpretive Data was last revised on 2017. Testing performed by: [address] [address] Blood 04/06/2024 8:24 AM CARETAKER 04/06/2024 8:33 AM CARETAKER us Lavon Castaneda MD LAB BLOOD ORDERABLE S Final Result DENNIS [address] [facility] Department [place] [address] * (ABNORMAL) CBC with auto differential (04/06/2024 8:24 AM CARETAKER) WBC 6.5 3.8 - 9.9 K/cumm Comment:Testing performed by : [address] [address] Hgb 10.4(L) 11.9 - 15.5 g/dL DENNIS Comment:Testing performed by : [address] [address] Hct 33.0(L) 35.6 - 45.5 % DENNIS Comment:Testing performed by : [address] [address] Plt 277 150 - 400 K/cumm DENNIS Comment:Testing performed by : [address] [address] MPV 9.6 9.1 - 12.3 fL DENNIS Comment:Testing performed by : [address] [address] RBC 3.98 3.90 - 5.20 M/cumm DENNIS Comment:Testing performed by : [address] [address] MCV 82.9 81.3 - 96.4 fL DENNIS Comment:Testing performed by : [address] [address] MCH 26.1(L) 27.1 - 33.3 pg DENNIS Comment:Testing performed by : [address] [address] MCHC 31.5(L) 32.3 - 35.7 g/dL DENNIS Comment:Testing performed by : [address] [address] RDW CV 15.8(H) 11.1 - 14.9 % DENNIS Comment:Testing performed by : [address] [address] RDW SD 47.7 35.7 - 48.1 fL DENNIS JOSUE Comment:Testing performed by : [facility], [address] [place] [address]., [address] NRBC abs 0.00 0.00 - 0.01 K/cumm DENNIS JOSUE Comment:Testing performed by : [address] [address] Blood 04/06/2024 8:24 AM CARETAKER 04/06/2024 8:33 AM CARETAKER Lavon Castaneda MD LAB BLOOD ORDERABLE S Final Result Performing Organization Address [facility] Co de Phone Number DENNIS [address] [facility] [place] [address] * hCG, blood, quantitative (04/06/2024 8:24 AM CARETAKER) hCG, quant <5.0 0.0 - 5.0 IUnits/L Comment: Interpretive Data Male: < 5 IU/L Non- premenopausal Female: <5 IU/L The Rudy hCG Beta Quant assay procedure was used. Results from different manufacturers or methods may not be comparable. Serial testing should be performed using the same method. Interpretive Data was last revised on 2023 Testing performed by: [address] [address] Blood 04/06/2024 8:24 AM CARETAKER 04/06/2024 8:33 AM CARETAKER Lavon Castaneda MD LAB BLOOD ORDERABLE S Edited Result - Final Performing Organization Address [facility] Co de Phone Number [facility] [address] [facility] [place] [address] * (ABNORMAL) Basic metabolic panel (04/06/2024 8:24 AM CARETAKER) Sodium 139 135 - 145 mmol/L Comment:Testing performed by : [address] [address] Potassium, pl 4.5 3.3 - 4.9 mmol/L DENNIS JOSUE Comment:Testing performed by : [address] [address] Chloride 103 97 - 110 mmol/L DNENIS Comment:Testing performed by : [address] [address] CO2 21(L) 22 - 32 mmol/L DENNIS Comment:Testing performed by : [address] [address] Anion gap 15 2 - 15 mmol/L DENNIS Comment:Testing performed by : [address] [address] BUN 54(H) 6 - 25 mg/dL DENNIS Comment:Testing performed by : [address] [address] Creatinine 13.60(H) 0.60 - 1.10 mg/dL DENNIS Comment:Testing performed by : [address] [address] Glucose 95 70 - 199 mg/dL DENNIS [...] was last revised 2022. Testing performed by: [address] [address] Calcium 9.3 8.5 - 10.3 mg/dL DENNIS Comment:Testing performed by : [address] [address] Blood 04/06/2024 8:24 AM CARETAKER 04/06/2024 8:33 AM CARETAKER us Lavon Castaneda MD LAB BLOOD ORDERABLE S Final Result DENNIS [address] [facility] Department [place] [address] * ECG 12 lead (04/06/2024 8:18 AM CARETAKER) Ventricular Rate EKG/Min 74 BPM [facility] Atrial Rate 74 BPM [facility] WA-Interval (MSEC) 148 ms [facility] QRS-Interval (MSEC) 70 ms [facility] QT-Interval (MSEC) 422 ms [facility] QTc 468 ms [facility] P [place] 65 degrees [facility] R [place] 1 degrees [facility] T [place] 31 degrees [facility] Diagnosis Normal sinus rhythm Low voltage QRS Septal infarct , age undetermined Abnormal ECG When compared with ECG of 06-MAR-2023 10:29, No significant change was found Confirmed by MEREDITH CANO M.D. ([id number]) on 04/08/2024 7:23:12 PM [facility] 04/06/2024 8:18 AM CARETAKER 04/08/2024 7:23 PM CARETAKER us Lavon Castaneda MD ECG ORDERABLES Fin al Result Performing Organization Address [facility]/ZIP Co de Phone Number [facility] * HLA Antibody Screen by PRA or SAB per Schedule (Class I and Class II) (03/29/2024 10:00 AM CARETAKER) Blood 03/29/2024 10:0 0 AM CARETAKER Narrative HISTOTRAC - CARETAKER Sample received in lab. Single Antigen Antibody Screen ordered. us Bashir Alston MD LAB BLOOD ORDERABLES Final R esult HISTOTRAC * HLA Antibody Screen - SAB (Class I and Class II) (03/29/2024 10:00 AM CARETAKER) Class I Treatment EDTA HISTOTRAC Class I [...] per SSO. HISTOTRAC 03/29/2024 10:0 0 AM CARETAKER 04/04/2024 10:33 AM CARETAKER Narrative HISTOTRAC - 04/04/2024 10:33 AM CARETAKER Single-antigen HLA antibody screen is performed on serum samples using a method developed and validated by the [facility] HLA laboratory based on an FDA-approved IVD kit (LABScreen Single-Antigen, [employer], [place], [place]). All patient serum samples are pretreated with EDTA before the screen to prevent complement interference. Additional serum treatments, such as adsorption and DTT treatment, may be performed as indicated. Interpretive comments: Low risk: MFI [id number]. Moderate risk: MFI 9022-0823. Increased risk: MFI >/= 5000. The presence [...] antigens to avoid. Testing performed at the [facility], [address] [place] [address], 5th floor, [place], [address]. [place] # [id number]. Amber Berry, Ph.D., Ore Roaster, HLA Laboratory Jonathan Brennan M.D., Ph.D., Screen Examiner, HLA Laboratory Rehana Alarcon, Ph.D., CLIA Screen Examiner, [facility] Current methodology and interpretive comments last revised on 03/20/2022. us Bashir Alston MD LAB BLOOD ORDERABLES Edited Result - Final HISTOTRAC * Hepatitis C antibody Blood (02/16/2024 11:34 AM CARETAKER) Hep C Ab Nonreactive Nonreactive Comment:Antibodies to HCV no t detected. Does NOT exclude the possibility of recent exposure to HCV. Current interpretive data was last revised on 21 Blood 02/16/2024 11:3 4 AM CARETAKER 02/16/2024 11:45 AM CARETAKER Tonya Hammonds MD LAB MICROBIOLOGY - GENERAL ORDERABLES Final Result Performing Organization Address [facility] Co de Phone Number DENNIS [facility] Department [place] [address] * (ABNORMAL) Hemoglobin A1c (02/16/2024 11:34 AM CARETAKER) Hgb A1C 6.2(H) 4.0 - 5.6 % Estimated Average Glucose 131 mg/dL [facility] Comment: The ADA recommends reporting an estimated Average Glucose (eAG) with all Hemoglobin A1c results using the equation derived from a study of 507 normal and diabetic adults. Minority populations were underrepresented and children were not included. (Diabetes Care 2020; 43(S1): S66-S76). The eAG is not equivalent to a fasting glucose. Blood 02/16/2024 11:3 4 AM CARETAKER 02/16/2024 11:45 AM CARETAKER us Tonya Hammonds MD LAB BLOOD ORDERABLE S Final Result Performing Organization Address [facility] Co de Phone Number [facility] [place] [address] * Colonoscopy (07/21/2023 10:23 AM CDT) Anatomical Region Laterality Modality Other Narrative Procedure Note Early, Haritha Coronado MD - 07/21/2023 10:23 AM CDT [facility] Patient Name: Bakari Smith Procedure Date: 07/21/2023 10:23 AM Date of : 1980 Admit Type: Outpatient Age: 43 Gender: Female Attending MD: Haritha Stover M.D. Room: [facility] ENDOSCOPY ROOM 02 Note Status: [...] The scope was passed under direct vision.The [id number] Colonoscope was introducedthrough the anus and advanced to the the cecum, identifiedby appendiceal orifice and ileocecal valve. The colonoscopy was performed without difficulty. The patient tolerated the procedure well. The qualityof the bowel preparation was evaluated using the BBPS ([place] Bowel Preparation Scale) with scores of:Right Colon [...] On: 07/21/2023 10:23 AM Recognized by the [place] [employer] for promoting quality in endoscopy Haritha Stover MD ENDOSCOPY PROCEDURES Final Res ult * HM MAMMOGRAPHY (06/04/2021) Impressions Rashida Schneider - 06/04/2021 IMPRESSION: 1. Benign mammogram. READ BY: NINO BAJWA MD 06/05/2021 Historical Provider HEALTH MAINTENANCE Final Result * Lipid panel (04/30/2021 12:22 PM CARETAKER) Cholesterol 139 30 - 199 mg/dL DENNIS [facility] Comment: Interpretive Data Ages < or [...] revised on 2017. Triglycerides 64 <=149 mg/dL [facility] Comment: Interpretive Data Ages < [...] revised on 2017. HDL 70 >=40 mg/dL [facility] Comment: Interpretive Data Ages < [...] on 2017. LDL, calculated 56 <=129 mg/dL [facility] Comment: Interpretive Data Ages < [...] revised on 2017. Non-HDL Cholesterol 69 mg/dL [facility] Comment: Interpretive Data Ages < [...] DENNIS HOLT Blood 04/30/2021 12:2 2 PM CARETAKER 04/30/2021 1:03 PM CARETAKER us Ren Pelayo MD LAB BLOOD ORDERABLES Final Result DENNIS [facility] Department [place] [address] from Last 3 Months or Most Recently Relevant to Health Maintenance Insurance AETNA [facility] MEDICARE MEDICARE [facility] MEDICARE [facility] MEDICARE SUPPLEMENT MEDICARE [facility] MEDICARE SUPPLEMENT Advance Directives For more information, please contact: [phone] * Full Code (Latest Code Status on File) Date Activated Date Inactivated Comments 07/21/2023 9:59 AM 07/21/2023 3:56 PM Care Teams System Software Developer Relationship Specialty Start Date End Date No, Physician PCP - General 02/16/24 Almita Rizzo, RN [address] [facility] [address] [place] [address] Lead Based Paint Technician 04/04/21 Beth Fernandez MD [address] [facility] [address] [address] [place] [address] Referring Physician Nephrology 04/04/21 Maday Oviedo MD [address] [facility] [address] [address] [place] [address] Neurology 09/12/22 Tomasz Scott DO [address] [place] [address] Anchor Tack Puller Cardiology 09/16/22 Meir Nazario MD [address] [facility] [address] [place], [place] [id number] Obstetrics and Gynecology 04/11/24
--- OUTSIDE RECORDS SUMMARY | 2024-06-18 13:12 | XMS_ITS | CONTINUITY OF CARE DOCUMENT ---
Author Name juany harrington Address Unknown Organization [facility] Address [address] [place] [address] [address] [place] [address] Phone [phone] Care Team Providers Care Library Circulation Clerk Name Role Phone Christoph Guerra MD Unavailable [phone] ANNITA WALTER MD Unavailable [phone] ANNITA WALTER MD Unavailable [phone] PROBLEMS Condition Status Date Provider Notes Cardiology [...] In-person encounter Office Visit Christoph Guerra MD [place] [facility] Cardiology examinationESRD on PDHTN essentialDiabetes mellitus, [...] Payer name Policy type / Coverage type [employer] ID [place] MEDICARE Medicare [id number] ADVANCE DIRECTIVES Name Date DISCUSSED - NO [...] pid Panel with Inflammation (Quest) myocardial blood ajson w (PET) Stress Cardiac PET-C T Complete Echo HISTORY OF PROCEDURES Procedure Date Procedure Name Provider Procedure Notes S tatus EKG Christoph Guerra MD [ 4 - tracyvandoren] completed
--- OUTSIDE RECORDS SUMMARY | 2024-06-18 13:12 | XMS_ITS | Encounter Summary ---
Author Organization [facility] Address [address] [place] [address] Care Team Providers Care Reduction Furnace Operator Name Role Phone Jessie Dickson NP Primary Care Provider [phone] Almita Rizzo RN Unavailable [phone] Beth Fernandez MD Unavailable [phone] Maday Oviedo MD Unavailable [phone] Tomasz Scott DO Unavailable [phone] Bashir Alston MD Primary Care Provider [phone] No, Physician Primary Care Provider [phone] Meir Nazario MD Unavailable [phone] Reason for Visit * Reason Onset Date Comments READY TO SCHEDULE 04/28/2023 Encounter Details Date Type Department Care Team (Late st Contact Info) Description 04/28/2023 Telephone [facility] Specialty Services [address] [place] [address] Miscellaneous, Not In File READY TO SCHEDULE [...] on file Legal Sex Female 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 Gender Identity Not on file Sexual Orientation Not on file documented as of this encounter Plan of Treatment Not on file documented as of this encounter Visit Diagnoses Not on filedocumented in this encounter Additional Health Concerns Infection Onset Date Last Indicated Resolved Time COVID: Suspected 12/01/2023 12/01/2023 12/01/2023 7:33 PM CDT documented as of this encounter Care Teams Reduction Furnace Operator Relationship Specialty Start Date End Date Jessie Dickson NP [address] [place] [address] PCP - General Nurse Practitioner 03/05/21 07/07/23 Bashir Alston MD [address] [facility] [address] [place] [address] PCP - General Transplant 07/08/23 07/08/23 No, Physician PCP - General 02/16/24 Almita Rizzo, RN [address] [facility] [address] [place] [address] Humanities Division Chair 04/04/21 Beth Fernandez MD [address] [facility] [address] [place] [address] Referring Physician Nephrology 04/04/21 Maday Oviedo MD [address] [facility] [address] [place] [address] Neurology 09/12/22 Tomasz Scott DO [address] [place] [address] Group Therapy Counselor Cardiology 09/16/22 Meir Nazario MD [address] [facility] [address] [place] [address] Obstetrics and Gynecology 04/11/24 documented as of this encounter
--- NOTE | 2024-06-18 13:22 | ED_ITS ---
HPI - Abdominal Pain General Chief Complaint: Abdominal Pain Stated Complaint: abdominal and back pain Time Seen by Provider: 06/18/24 13:02 History of Present Illness HPI narrative: 44-year-old female with a past medical history including end-stage renal disease on peritoneal dialysis daily, hypertension, diabetes. She presents the emergency department for re-evaluation after being discharged from emergency department several days ago at another facility. She is complaining of abdominal pain, rectal pressure and states she feels constipated. No bowel movement in several days. History of multiple abdominal surgeries including sections, gallbladder removal. She states that the pain has been getting worse since her discharge and has not had a bowel movement despite MiraLax. States she was workup for peritonitis at outside hospital and this was negative. She has been using a dialysis catheter regularly without any issues. No fever, chills, back pain. No chest pain or shortness a breath. Denies any vaginal bleeding or chance of . Related Data Home Medications ?Medication ?Instructions ?Recorded ?Confirmed ?Last Taken ?Type hydralazine 100 mg tablet 100 mg PO Q12H 03/07/24 06/18/24 06/17/24 History labetalol 200 mg tablet 200 mg PO Q12H 03/22/24 06/18/24 06/17/24 History sevelamer HCl 800 mg tablet 800 mg PO TID 06/18/24 06/18/24 06/17/24 History Allergies Allergy/AdvReac Type Severity Reaction Status Date / Time metronidazole Allergy Intermediate Rash Verified 06/18/24 12:40 omeprazole Allergy Intermediate Rash Verified 06/18/24 12:40 Review of Systems 2 Review of Systems: As reviewed above in HPI [facility] Past Medical History Medical History Peritoneal dialysis catheter in place Requires peritoneal dialysis ESRD (end stage renal disease) Obesity (BMI 30-39.9) Dysphagia, oropharyngeal Morbid obesity Chronic kidney disease, stage 5 Pyuria Erythropoietin deficiency anemia Gastroesophageal reflux Arthritis Right wrist left knee Irritable bowel syndrome Diverticulitis Pneumonia Peripheral neuropathy Diabetes Hypertension Surgical History Surgical History Hx of dilation and curettage Hx of cholecystectomy History of salpingo-oophorectomy Delivery by section X3 History of tubal ligation Hx of appendectomy Family History Family History Mother Diabetes mellitus Breast cancer Sibling History of blood clots due to blood clot Heart disease Sister has something wrong with her heart Father Hypertension Prostate carcinoma Daughter , 06/08/2021, 19yo Pulmonary embolism Social History Social History Social History: She has 3 children, 1 . She is single. Her oldest daughter is a durable power ip technology transactions attorney for healthcare. The patient desires to be a full code. Patient stated that she has 5 grandchildren and watches her granddaughter most of the time. Code status full code Smoking status: Never smoker Second hand tobacco smoke exposure: Yes Alcohol intake: never Substance use: former Substance use type: does not use Do You Feel Safe in your Home?: Yes Lack of Transportation: YES Lack of Food: Never True Current Housing: I Have Housing Concerned About Future Housing: No Difficulty Paying Gas/Electric Bills: No Difficulty Paying for Meds: No Currently Unemployed: No Education: High School Diploma/GED Difficulty w/ Childcare or Family Care: No Living arrangements: with family Additional living arrangements comments: with son Occupation/Education: other Additional occupation/education comments: disabled, used to work as a [employer]OCK[employer] Gender identity (if verbalized by the patient): Female Sexual Orientation (if Verbalized by the Patient): Straight or Heterosexual Spiritual care concerns: No Agree to blood products: Yes Exam 2 Narrative: GENERAL: Uncomfortable appearing, not any acute physical distress, awake and answering questions appropriately. HEAD: [Normocephalic, atraumatic.] EYES: [PERRLA and EOMI.] ENT: Nares clear, no rhinorrhea or epistaxis. Mucous membranes moist. NECK: Supple. CHEST: [Clear to auscultation. No respiratory distress.] HEART: [Regular rate and rhythm]. No murmur heard. [Normal peripheral pulses.] ABDOMEN: [Soft, nondistended], tender to palpation in the abdomen, peritoneal dialysis catheter in place without any overlying skin changes or erythema., [No rigidity or guarding] EXTREMITIES: Normal range of motion. [No edema.] SKIN: Warm, dry, no rash. NEURO: [No focal deficits]. Alert and oriented [x3.] PSYCH: [Normal mood and affect.] Course Vital Signs Vital signs: Vital Signs Temperature 36.6 C 06/18/24 12:46 Pulse Rate 80 06/18/24 12:46 Respiratory Rate 18 06/18/24 12:46 Blood Pressure 149/75 H 06/18/24 12:46 Pulse Oximetry 99 06/18/24 12:46 Oxygen Delivery Room Air 06/18/24 12:46 Temperature 37.1 C 06/18/24 13:34 Pulse Rate 79 06/18/24 19:52 Respiratory Rate 18 06/18/24 18:15 Blood Pressure 219/93 H 06/18/24 19:08 Pulse Oximetry 100 06/18/24 18:15 Oxygen Delivery Room Air 06/18/24 13:34 MDM - Abdominal Pain MDM Narrative Medical decision making narrative: 44-year-old female on peritoneal dialysis for end-stage renal disease. She also has a history of hypertension, diabetes and multiple abdominal surgeries. She presents to the emergency department for several days of abdominal pain and constipation. She states she was seen at another emergency department diagnosed with constipation after CT scan and laboratory studies. Patient does have a tender abdomen but no significant distension. No fluid wave. She is afebrile, vital signs within normal limits. Differential diagnosis includes constipation, bowel obstruction, peritonitis, gastroenteritis, pancreatitis, appendicitis. CBC, CMP, lactic acid, CT scan without contrast was ordered. Fluid will be drawn from the peritoneal dialysis site and sent for analysis including Gram stain and cell count. She was given fluid bolus and Zofran/morphine for symptom control and re-evaluated. Dialysis nurse was called to bedside for helping obtain peritoneal dialysis sample which was very cloudy on withdrawal which raises suspicion for spontaneous bacterial peritonitis. Patient's laboratory studies showed leukocytosis of 11.5. Hemoglobin 9.5 around baseline. Normal platelet count. She has BUN and creatinine reflective of her end-stage renal function, unremarkable glucose, negative lipase. Negative test. CT scan shows no evidence of appendicitis, diverticulitis, obstruction. Moderate ascites from her dialysis. Atrophic kidneys, some edematous mesentery which is nonspecific. Spoke to the on-call automotive wholesale parts advisor Dr. Stacy who recommended vancomycin and cefepime for spontaneous bacterial peritonitis. Will be admitted to a medical- surgical bed I discussed the case with the hospitalist [facility]. Her perineal fluid collection did show peritonitis with elevated nucleated cells and Gram stain pending. Patient remains hemodynamically stable and improved on pain control medications here in the emergency department. P.r.n. medications ordered and she was admitted to the hospital without further incident. Medical Records Attestation: I reviewed the patient's medical records. Lab Data Attestation: I reviewed the patient's lab results. 06/18/24 15:28 06/18/24 13:32 Labs: Lab Results 06/18/24 06/18/24 Range/Units 13:32 15:28 WBC 11.5 H (4.5-10.0) K/mm3 RBC 3.76 L (4.2-5.4) M/mm3 Hgb 9.5 L (12.0-15.0) g/dL Hct 31.9 L (37.0-47.0) % MCV 84.8 (80-100) fl MCH 25.3 L (26-34) pg MCHC 29.8 L (32-36) g/dl RDW 14.9 H (11.5-14.5) % Plt Count 307 (150-375) k/mm3 MPV 9.1 (7.4-10.4) fl Immature Gran % (Auto) 0.4 (0-0.5) % Neut % (Auto) 77.1 H (45.5-73.1) % Lymph % (Auto) 14.1 L (18.3-44.2) % [place] % (Auto) 5.6 (2.6-8.5) % Eos % (Auto) 2.3 (0-4.4) % Baso % (Auto) 0.5 (0.2-1.2) % Lymph # (Auto) 1.62 (0.9-3.2) K/mm3 [place] # (Auto) 0.6 (0.1-0.6) K/mm3 Eos # (Auto) 0.3 (0-0.3) K/mm3 Baso # (Auto) 0.1 (0.0-0.1) K/mm3 Abs Immat Gran (auto) 0.05 H (0.00-0.031) K/mm3 Absolute Neuts (auto) 8.9 H (1.3-6.7) K/mm3 Absolute Nucleated RBC 0.000 (0.0-0.012) K/mm3 Band Neutrophils % 0 (0-6) % Nucleated RBC % 0.0 (0.0-0.2) % Platelet Estimate Adequate (Adequate) Hypochromasia 1+ Anisocytosis 1+ Schistocytes None seen Sodium 135 L (137-145) mmol/L Potassium 4.1 (3.4-5.0) mmol/L Chloride 101 (98-107) mmol/L Carbon Dioxide 30 (22-30) mmol/L Anion Gap 4 (4-12) mmol/L BUN 40 H D (7-17) mg/dL Creatinine 11.19 H (0.7-1.0) mg/dL Estim Creat Clear Calc 6 ml/min Estimated GFR 4 L (59 - ) Glucose 140 H (65-110) mg/dL Lactic Acid 0.7 (0.7-2.0) mmol/L Calcium 8.5 (8.4-10.2) mg/dL Total Bilirubin 0.4 (0.2-1.3) mg/dL AST 34 (14-36) U/L ALT 28 (6-35) U/L Alkaline Phosphatase 206 H (38-126) U/L Total Protein 6.0 L (6.3-8.2) g/dL Albumin 2.7 L (3.5-5.1) g/dL Lipase 78 (23-300) U/L Serum HCG, Qual Negative Imaging Data Attestation: I personally reviewed and interpreted this imaging study as follows: My impression: Impressions Abdomen/Pelvis CT 06/18/24 14:10 IMPRESSION: 1. No evidence of appendicitis, diverticulitis or intestinal obstruction. 2. Moderate ascites. 3. Atrophic kidneys. Dialysis catheter seen in the pelvis. 4. Edematous mesentery seen anteriorly. Clinical correlation advised Radiologist's impression: ITS Impressions Abdomen/Pelvis CT 06/18/24 14:10 IMPRESSION: 1. No evidence of appendicitis, diverticulitis or intestinal obstruction. 2. Moderate ascites. 3. Atrophic kidneys. Dialysis catheter seen in the pelvis. 4. Edematous mesentery seen anteriorly. Clinical correlation advised Critical Care Time Critical Care Time Critical Care Time: Yes Total Critical Care Time: 36 Discharge Plan Discharge Clinical Impression: SBP (spontaneous bacterial peritonitis), Abdominal pain, Cloudy peritoneal dialysis effluent, Peritoneal dialysis status Patient Disposition: Still a Patient Condition: Stable
[2024-06-18 13:50] LABS: Alanine Aminotransferase 28 U/L (6-35); Albumin Level 2.7 g/dL (3.5-5.1); Alkaline Phosphatase 206 U/L (38-126); Anion Gap 4 mmol/L (4-12); Aspartate Amino Transferase 34 U/L (14-36); Bilirubin,Total 0.4 mg/dL (0.2-1.3); Blood Urea Nitrogen 40 mg/dL (7-17); Calcium 8.5 mg/dL (8.4-10.2); Carbon Dioxide 30 mmol/L (22-30); Chloride 101 mmol/L (98-107); Estimated CRCL calculation 6 ml/min; Estimated Glomerular Filt Rate 4; Glucose 140 mg/dL (65-110); Lactic Acid Reflex 0.7 mmol/L (0.7-2.0); Lipase 78 U/L (23-300); Potassium 4.1 mmol/L (3.4-5.0); Sodium 135 mmol/L (137-145)
[2024-06-18 13:51] LABS: Serum Qual hCG Negative
[2024-06-18 13:52] LABS: SPREG INTERNAL CONTROL Positive
[2024-06-18] MEDS: MORPHINE SULFATE (*CRX) 4 MG/ML INJ 6 MG IV PUSH (14:30)
[2024-06-18] MEDS: LACTATED RINGERS 1,000 ML 999 ML IV CONT (14:31)
[2024-06-18] MEDS: ONDANSETRON INJ 4 MG/2 ML VIAL IV PUSH (14:31)
[2024-06-18 15:44] LABS: Basophils Absolute Auto 0.1 K/mm3 (0.0-0.1); Basophils Percent Auto 0.5 % (0.2-1.2); Eosinophils Absolute Auto 0.3 K/mm3 (0-0.3); Eosinophils Percent Auto 2.3 % (0-4.4); Hematocrit 31.9 % (37.0-47.0); Hemoglobin 9.5 g/dL (12.0-15.0); Immature Granulocyte Absolute 0.05 K/mm3 (0.00-0.031); Immature Granulocyte Percent A 0.4 % (0-0.5); Lymphocytes Absolute Auto 1.62 K/mm3 (0.9-3.2); Lymphocytes Percent Auto 14.1 % (18.3-44.2); Mean Corpuscular HGB Conc 29.8 g/dl (32-36); Mean Corpuscular Hemoglobin 25.3 pg (26-34); Mean Corpuscular Volume 84.8 fl (80-100); Mean Platelet Volume 9.1 fl (7.4-10.4); Monocytes Absolute Auto 0.6 K/mm3 (0.1-0.6); Monocytes Percent Auto 5.6 % (2.6-8.5); Neutrophils Absolute Auto 8.9 K/mm3 (1.3-6.7); Neutrophils Percent Auto 77.1 % (45.5-73.1); Platelet Count Result 307 k/mm3 (150-375); Red Blood Count 3.76 M/mm3 (4.2-5.4); Red Cell Distribution Width 14.9 % (11.5-14.5); White Blood Count 11.5 K/mm3 (4.5-10.0)
--- NOTE | 2024-06-18 15:50 | P.HP_ITS ---
H&P: HPI History of Present Illness Date/Time: 06/18/24 19:00 Chief Complaint: Abdominal pain. Narrative: This is a pleasant 44-year-old female with history of diverticulitis, irritable bowel syndrome, cholecystectomy, appendectomy, section, small stroke in April 2022, end-stage renal disease on peritoneal dialysis, insulin-dependent type 2 diabetes mellitus, and hypertension who presented to the emergency department via private vehicle with complaints of abdominal pain. She was seen at an outside hospital several days ago for evaluation of abdominal pain and rectal pressure. She was told that she was constipated which is not new for her and is a lifelong problem, and she was told to take a Fleet's enema which she did without results. She continues to have diffuse abdominal discomfort and some pressure as well and after speaking with her dialysis nurse she was told to come to the emergency department to rule out spontaneous bacterial peritonitis causing ileus. With further questioning she reports mild nausea but denies bloating and vomiting. She also denies fever, chills, sweats, chest pain, back pain, dysuria (she still urinates some), hematuria, and shortness of breath. In the ED: She was afebrile on arrival. Blood pressures have been running in the 140s to low 200s systolic but she did not take her medications yet today. Labs were significant for WBC count of 11.5, hemoglobin 9.5, sodium 135, BUN 40, creatinine 11.19, glucose 140, hemoglobin A1c 6.3%, total protein 6.0, albumin 2.7. CT of the abdomen and pelvis showed moderate ascites and edematous mesentery anteriorly without any other acute findings. Dialysis nurse came and wrist sample of her peritoneal fluid and she was started on empiric antibiotics to cover for possible SBP and she is being admitted in this setting. Review of Systems Review of Systems: 12 systems were reviewed and are negativ e except for as per HPI. [facility] Past Medical History Medical History (Updated 06/18/24 @ 22:31 by Sera Jorgensen PA-C) Insulin dependent type 2 diabetes mellitus End-stage renal disease on peritoneal dialysis Obesity (BMI 30-39.9) Erythropoietin deficiency anemia Gastroesophageal reflux Arthritis Right wrist left knee Irritable bowel syndrome Diverticulitis Pneumonia Peripheral neuropathy Hypertension Surgical History Surgical History (Updated 06/18/24 @ 22:24 by Sera Jorgensen PA-C) History of section x3 History of dilation and curettage History of appendectomy History of cholecystectomy History of salpingo-oophorectomy History of tubal ligation Family History Family History Mother Diabetes mellitus Breast cancer Sibling History of blood clots due to blood clot Heart disease Sister has something wrong with her heart Father Hypertension Prostate carcinoma Daughter , 06/08/2021, 19yo Pulmonary embolism Social History Social History (Updated 06/18/24 @ 22:26 by Sera Jorgensen PA-C) Social History: Surrogate medical decision maker: Robert Smith, daughter. Code status: Full code. Smoking status: Never smoker Second hand tobacco smoke exposure: Yes Alcohol intake: never Substance use: former Substance use type: does not use Do You Feel Safe in your Home?: Yes Lack of Transportation: YES Lack of Food: Never True Current Housing: I Have Housing Concerned About Future Housing: No Difficulty Paying Gas/Electric Bills: No Difficulty Paying for Meds: No Currently Unemployed: No Education: High School Diploma/GED Difficulty w/ Childcare or Family Care: No Living arrangements: with family Additional living arrangements comments: Lives with family in [place]. 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 Spiritual care concerns: No Agree to blood products: Yes Meds Home Medications and Allergies Home Medications ?Medication ?Instructions ?Recorded ?Confirmed ?Type blood sugar diagnostic (Blood #100 ea 12/30/23 06/18/24 Rx Glucose Test strips) blood-glucose meter (Blood Glucose #1 ea 12/30/23 06/18/24 Rx Monitoring kit) gabapentin 100 mg capsule 200 mg (2 x 100 mg) PO TID #540 12/30/23 06/18/24 Rx caps lancets 31 gauge #100 ea 12/30/23 06/18/24 Rx hydralazine 100 mg tablet 100 mg PO Q12H 03/07/24 06/18/24 History labetalol 200 mg tablet 200 mg PO Q12H 03/22/24 06/18/24 History aspirin 81 mg tablet,delayed See Rx Instructions .Route 05/30/24 06/18/24 Rx release .COMPLEX #90 tabs acetaminophen 500 mg tablet 1,000 mg (2 x 500 mg) PO TID PRN 06/09/24 06/18/24 Rx tessie 7 days #180 tabs amlodipine 10 mg tablet 10 mg PO DAILY #90 tabs 06/09/24 06/18/24 Rx blood-glucose sensor (FreeStyle #2 ea 06/09/24 06/18/24 Rx Alexandro 3 Plus Sensor device) insulin glargine 100 unit/mL (3 14 unit (0.14 mL) subcut HS #15 mL 06/09/24 06/18/24 Rx mL) subcutaneous pen (Lantus Solostar U-100 Insulin) pen needle, diabetic 32 gauge x #1 pkg 06/09/24 06/18/24 Rx sevelamer HCl 800 mg tablet 800 mg PO TID 06/18/24 06/18/24 History Allergies Allergy/AdvReac Type Severity Reaction Status Date / Time metronidazole Allergy Intermediate Rash Verified 06/18/24 12:40 omeprazole Allergy Intermediate Rash Verified 06/18/24 12:40 Vital Signs Vital Signs - 24 hr 06/18/24 12:46 06/18/24 13:34 Temperature 97.8 F 98.7 F Pulse Rate 80 82 Respiratory Rate 18 16 Blood Pressure 149/75 H 145/82 H Pulse Oximetry 99 100 Oxygen Delivery Room Air Room Air Exam Narrative: General: Nontoxic-appearing female sitting up in bed in no acute distress. Weight: 90.7 kg. BMI: 30.5. HEENT: PERRL, EOMI. Sclera anicteric. Oral mucosa moist. Oropharynx clear. Neck: Supple. Respiratory: Lungs are clear to auscultation bilaterally. Cardiovascular: Regular rate and rhythm with S1-S2. Soft murmur the left sternal border. Gastrointestinal: Abdomen is soft and nondistended with positive bowel sounds. She is tender to palpation throughout the periumbilical region without guarding or rebound tenderness. Positive bowel sounds. Peritoneal dialysis catheter dressing is clean, dry, and intact. Peritoneal fluid was reportedly cloudy. Skin: Warm and dry. Extremities: No cyanosis, clubbing, or edema. Radial and pedal pulses intact. Neurological: Alert. Cranial nerves 2-12 are grossly intact. No gross focal deficits to casual conversation. Psychiatric: Pleasant and cooperative with normal mood and affect. Judgment and insight intact. H&P: Results Labs Labs: BMP 06/18/24 13:32 Sodium 135 L Potassium 4.1 Chloride 101 Carbon Dioxide 30 BUN 40 H D Creatinine 11.19 H Glucose 140 H Calcium 8.5 Liver Function 06/18/24 Range/Units 13:32 Total Bilirubin 0.4 (0.2-1.3) mg/dL AST 34 (14-36) U/L ALT 28 (6-35) U/L Alkaline Phosphatase 206 H (38-126) U/L Albumin 2.7 L (3.5-5.1) g/dL Imaging Abdomen/Pelvis CT 06/18/24 14:10 IMPRESSION: 1. No evidence of appendicitis, diverticulitis or intestinal obstruction. 2. Moderate ascites. 3. Atrophic kidneys. Dialysis catheter seen in the pelvis. 4. Edematous mesentery seen anteriorly. Clinical correlation advised. Assessment and Plan Assessment and plan (1) Spontaneous bacterial peritonitis: Code(s): K65.2 - Spontaneous bacterial peritonitis Status: Acute (2) Constipation: Code(s): K59.00 - Constipation, unspecified Status: Acute (3) End-stage renal disease on peritoneal dialysis: Code(s): N18.6 - End stage renal disease; Z99.2 - Dependence on renal dialysis Status: Chronic (4) Insulin dependent type 2 diabetes mellitus: Code(s): E11.9 - Type 2 diabetes mellitus without complications; Z79.4 - buttermaker helper (current) use of insulin Status: Acute (5) Hypertension: Code(s): I10 - Essential (primary) hypertension Status: Chronic Plan The patient presented to the emergency department with complaints of abdominal pain for couple of days and constipation as detailed in HPI. Labs, imaging, EKG, and all reports were personally reviewed. Peritoneal fluid was cloudy per dialysis nurse and she has been started on empiric antibiotics to cover for probable spontaneous bacterial peritonitis. [id number] nucleated cells were seen on fluid cell count though Gram stain is pending at this time. She has still not had a bowel movement though there was no evidence of ileus on imaging and she has bowel sounds. Try Dulcolax suppository overnight and start daily MiraLax. Nephrology consulted for dialysis orders. Continue basal insulin; hemoglobin A1c today is 6.3%. Initiate sliding scale insulin, Accu-Cheks, and hypoglycemic protocol. Blood pressures have been running high though she missed her morning medications. Continue antihypertensives and monitor closely. Her home medications will be reviewed and resumed as appropriate. Findings and treatment plan were discussed with the patient. Questions were solicited and answered to satisfaction. The patient's medical management will be taken over by the hospitalist team in a.m. Quality VTE Prophylaxis VTE prophylaxis: pharmacologic ordered The patient has been admitted under observation status. Hospitalist [facility] Advance Care Plan I have confirmed that the patient's Advanced Care Plan is present, code status is documented, or surrogate decision maker is listed in patient medical record.: Yes Medication Reconciliation The patient is not eligible for med reconciliation; the patient is in a emergent medical situation where delaying treatment would jeopardize the patients health.: Yes
[2024-06-18 16:15] LABS: Platelet Estimate Adequate (Adequate); Schistocytes None Seen
[2024-06-18 16:16] LABS: Anisocytosis 1+; Band Neutrophils Percent 0 % (0-6); Hypochromasia 1+
--- NOTE | 2024-06-18 16:57 | PC.NURSE ---
attenuator consult note: Called in to draw PD effluent sample. Patient reports generalized abdominal pain without n/v. Patient reports last bowel movement was sometime last week and states this is normal for her. Patient reports good appetite. PD catheter site is without acute infection and is well approximated. Sample drawn per policy/order. Sample is yellow and cloudy (unable to see through effluent). Sample shown to ED RN and ED MD. Sample then walked to lab and handed to sleep lab technician. Total time: 75 minutes
[2024-06-18] MEDS: VANCOMYCIN 1,750 MG/NS 500 ML 1,750 MG/500 ML BAG 250 MG IVPB (17:44)
[2024-06-18 17:55] LABS: Appearance Peritoneal Fluid Cloudy (Clear); Source Peritoneal Fluid Peritoneal Fluid
[2024-06-18 17:56] LABS: Color Peritoneal Fluid Yellow (Colorless); Lymphocytes Peritoneal Fluid 6 %; Mesothelial Cells Peritoneal Fluid 1 %; Monocytes Peritoneal Fluid 9 %; Neutrophils Peritoneal Fluid 84 % (0-25); Nucleated Cells Peritoneal Flu 7063 /uL (0-500); RBC Peritoneal Fluid < 2000 /uL (0-10000)
[2024-06-18] MEDS: HYDROmorphone HCL INJ (*CRX) 2 MG/ML VIAL 0.5 MG IV PUSH (18:19)
[2024-06-18] MEDS: GABAPENTIN 100 MG CAPSULE 200 MG PO (19:52)
[2024-06-18] MEDS: LABETALOL HCL 100 MG TABLET 200 MG PO (19:52)
[2024-06-18] MEDS: amLODIPine BESYLATE 5 MG TABLET PO (19:53)
[2024-06-18] MEDS: hydrALAZINE HCL 50 MG TABLET 100 MG PO (19:53)
[2024-06-18 21:31] LABS: Hemoglobin A1C 6.3 % (<5.7)
[2024-06-18 21:45] LABS: Glucose Point of Care 164 mg/dl (65-105)
[2024-06-18] MEDS: INSULIN GLARGINE (*BKC) 100 UNITS/ML 14 UNITS SUB-Q (21:49)
[2024-06-18] MEDS: BISACODYL 10 MG SUPPOSITORY RECTAL (22:26)
[2024-06-18] MEDS: diphenhydrAMINE HCl CAP 25 MG CAPSULE PO (22:26)
[2024-06-18] MEDS: CEFEPIME 1 GM/NS 50 ML 1 GM/50 ML BAG IVPB (23:02)
[2024-06-19] VITALS (7 sets, daily range): BP systolic 128–170; BP diastolic 65–89; PULSE 72–82; RESP 16–18; TEMP 36.6–36.8; O2SAT 100
[2024-06-19 05:01] LABS: Hematocrit 29.1 % (37.0-47.0); Hemoglobin 8.7 g/dL (12.0-15.0); Mean Corpuscular HGB Conc 29.9 g/dl (32-36); Mean Corpuscular Hemoglobin 25.7 pg (26-34); Mean Corpuscular Volume 85.8 fl (80-100); Mean Platelet Volume 9.3 fl (7.4-10.4); Platelet Count Result 293 k/mm3 (150-375); Red Blood Count 3.39 M/mm3 (4.2-5.4); Red Cell Distribution Width 14.7 % (11.5-14.5); White Blood Count 8.8 K/mm3 (4.5-10.0)
[2024-06-19 05:22] LABS: Anion Gap 4 mmol/L (4-12); Blood Urea Nitrogen 39 mg/dL (7-17); Calcium 8.2 mg/dL (8.4-10.2); Carbon Dioxide 28 mmol/L (22-30); Chloride 100 mmol/L (98-107); Estimated CRCL calculation 8 ml/min; Estimated Glomerular Filt Rate 4; Glucose 134 mg/dL (65-110); Magnesium 2.1 mg/dL (1.6-2.3); Potassium 3.8 mmol/L (3.4-5.0); Sodium 132 mmol/L (137-145)
[2024-06-19 08:13] LABS: Glucose Point of Care 67 mg/dl (65-105)
[2024-06-19] MEDS: ASPIRIN 81 MG ENTERIC TABLET BY MOUTH (08:24)
[2024-06-19] MEDS: amLODIPine BESYLATE 10 MG TABLET PO (08:24)
[2024-06-19] MEDS: SEVELAMER CARBONATE 800 MG TABLET PO ×3 (08:24→17:32)
[2024-06-19] MEDS: hydrALAZINE HCL 50 MG TABLET 100 MG PO ×2 (08:24→20:05)
[2024-06-19] MEDS: LABETALOL HCL 100 MG TABLET 200 MG PO ×2 (08:25→20:05)
[2024-06-19] MEDS: GABAPENTIN 100 MG CAPSULE 200 MG PO ×3 (08:25→17:32)
[2024-06-19] MEDS: HEPARIN SODIUM 5,000 UNITS/ML VIAL 5000 UNITS SUB-Q ×2 (08:26→20:06)
--- NOTE | 2024-06-19 08:26 | P.PNIM_ITS ---
Progress Note: A&P Assessment and Plan (1) Spontaneous bacterial peritonitis: Code(s): K65.2 - Spontaneous bacterial peritonitis Status: Acute Assessment and Plan: patient presented to emergency department with complaints of abdominal pain for her peritoneal dialysis nurse she had cloudy peritoneal fluid and suggested coming to the emergency department she has been afebrile with normal WBC and Peritoneal fluid was cloudy per dialysis nurse and she has been started on empiric antibiotics to cover for probable spontaneous bacterial peritonitis. 7063 nucleated cells were seen on fluid cell count though Gram stain is pending at this time. She has still not had a bowel movement though there was no evidence of ileus on imaging and she has bowel sounds. patient treated for bacterial peritonitis 02/2024 which was positive for staphylococcus epidermis. Patient reports straining for BM unsure the last one she has had. * Nephrology following * continue Vancomycin and cefepime pending cultures * daily weights * serial CMP monitor for signs of sepsis * pain management (2) Constipation: Code(s): K59.00 - Constipation, unspecified Status: Acute Assessment and Plan: Patient with reports of constipation no obstruction or fecal stasis on CT abdo men * given bisacodyl suppository overnight * Lactulose Q6hr until BM * gave Lactulose Enema x 1 (3) End-stage renal disease on peritoneal dialysis: Code(s): N18.6 - End stage renal disease; Z99.2 - Dependence on renal dialysis Status: Chronic Assessment and Plan: Patient currently on peritoneal dialysis * nephrology consulted * Avoid nephrotoxic drugs. * Monitor antihypertensive drug therapy. * Avoid NSAIDs. * Routine CMP monitoring GFR. * Monitor electrolytes especially potassium. * Antibiotic doses depending on creatinine clearance. (4) Insulin dependent type 2 diabetes mellitus: Code(s): E11.9 - Type 2 diabetes mellitus without complications; Z79.4 - intermediate designer (current) use of insulin Status: Acute Assessment and Plan: * Accu-Cheks a.c. HS * sliding scale insulin * resume patient's home long-acting 14 Units * Diabetic/Renal diet * Watch for hypoglycemia/hypoglycemic protocol ordered (5) Hypertension: Code(s): I10 - Essential (primary) hypertension Status: Chronic Assessment and Plan: patient has been running hypertensive since admission however she did report she had not taken her daily hyperintense medications * continue with labetalol, hydralazine, and amlodipine * monitor BP per unit protocol Plan Code status: Full code per patient DVT prophylaxis: Heparin Stress ulcer prophylaxis: NA PT/OT notes: Ambulatory Disposition: patient continues admission to the medical unit for further evaluation and treatment of possible bacterial peritonitis continue with peritoneal dialysis nephrology following further recommendations. Patient is ambulatory on own and plan will be to return home at discharge. Time Spent With Patient Time with patient: 15 - 25 minutes Subjective Date/time seen: 06/19/24 08:26 Interval history: Patient is a 44-year-old female who was admitted for further evaluation of possible spontaneous bacterial peritonitis and abdominal pain. peritoneal fluid has been sent for culture nephrology consulted appreciate all recommendations. 06/18/24: patient afebrile overnight, normal WBC, and culture still pending. She is still reporting ABD pain and inability to have a bowel movement states she can no remember the last time she had one. Also complaining that she isn't allowed milk due to her renal diet and she uses this at home to help her have a BM. Nephrology and myself explained in detail why she should avoid milk because of the serious side effects. Review of Systems Review of Systems: 12 systems were reviewed and are negativ e except for as per HPI. All systems reviewed & are unremarkable except as noted in HPI and below Exam Const: General: comfortable and no acute distress Other: Pleasant female HENMT: Face/Nose/Sinus: Normal nares present Mouth: Yes moist mucous membranes Eyes: General: appearance normal, both eyes and all related structures Sclera: sclerae normal Pupils: Equal, round and reactive pupils present Neck: Neck: supple and no JVD Resp: Effort & Inspection: normal respiratory effort Auscultation: clear to auscultation bilaterally Cardio: Rate: regular rate Rhythm: regular rhythm GI: GI Palp: Yes Soft to palpation and Yes Tenderness to palpation present (GI) Other: Abdomen is soft and nondistended with positive bowel sounds. She is tender to palpation throughout the periumbilical region without guarding or rebound tenderness. Positive bowel sounds. Peritoneal dialysis catheter dressing is clean, dry, and intact. Peritoneal fluid was reportedly cloudy. Skin: General skin exam: normal color and no rashes or lesions noted Wounds: no wounds Neuro: General: gait normal Speech: normal speech Motor exam (neuro): 5/5 motor strength present throughout Sensory Exam: normal sensation Extrem: General: normal to inspection Psych: Mental Status: mental status grossly normal Affect: normal affect Objective Data Vital Signs Vital Signs: Vital Signs - 24 hr 06/18/24 12:46 06/18/24 13:34 06/18/24 18:15 Temperature 97.8 F 98.7 F Pulse Rate 80 82 79 Respiratory Rate 18 16 18 Blood Pressure 149/75 H 145/82 H 210/92 H Pulse Oximetry 99 100 100 Oxygen Delivery Room Air Room Air 06/18/24 19:08 06/18/24 19:52 06/18/24 20:00 Temperature 97.8 F Pulse Rate 79 75 Respiratory Rate 18 Blood Pressure 219/93 H 169/75 H Pulse Oximetry 100 Oxygen Delivery 06/18/24 20:00 06/18/24 20:41 06/19/24 00:00 Temperature 97.8 F Pulse Rate 74 72 Respiratory Rate 16 Blood Pressure 164/68 H Pulse Oximetry 98 100 Oxygen Delivery Room Air Room Air 06/19/24 04:00 06/19/24 08:25 Temperature 97.8 F Pulse Rate 77 72 Respiratory Rate 18 Blood Pressure 143/65 H Pulse Oximetry 100 Oxygen Delivery Intake/Output Intake/Output: Intake & Output 06/16/24 06/17/24 06/18/24 06/19/24 23:59 23:59 23:59 23:59 Intake Total 1240 200 Balance 1240 200 Meds/Results Medications: Active Medications Generic Name Dose Route Start Last Admin Trade Name Freq PRN Reason Stop Dose Admin Acetaminophen 650 mg 06/18/24 15:47 Acetaminophen 325 Mg Tablet PO Q4H PRN Mild Pain (1-3) or Fever Amlodipine Besylate 10 mg 06/19/24 09:00 06/19/24 08:24 Amlodipine Besylate 10 Mg Tablet PO 10 mg DAILY CHAYO Administration Aspirin 81 mg 06/19/24 09:00 06/19/24 08:24 Aspirin 81 Mg Enteric Tablet BY MOUTH 81 mg DAILY CHAYO Administration Dextrose 12.5 gm 06/18/24 19:29 Dextrose 50% 25 Gm/50 Ml Syringe IV PUSH PRN PRN Hypoglycemia Protocol Gabapentin 200 mg 06/18/24 19:35 06/19/24 08:25 Gabapentin 100 Mg Capsule PO 200 mg TID CHAYO Administration Glucagon 1 mg 06/18/24 19:29 Glucagon For Inj 1 Mg Vial IM PRN PRN Hypoglycemia Protocol Glucose 15 gm 06/18/24 19:29 Glucose Oral Gel 15 Gm Of Glucse In 37.5 Gm Tube PO PRN PRN Hypoglycemia Protocol Heparin Sodium (Porcine) 5,000 units 06/19/24 09:00 06/19/24 08:26 Heparin Sodium 5,000 Units/Ml Vial SUB-Q 5,000 units Q12HR CHAYO Administration Hydralazine HCl 100 mg 06/18/24 21:00 06/19/24 08:24 Hydralazine Hcl 50 Mg Tablet PO 100 mg Q12H CHAYO Administration Hydromorphone HCl 0.5 mg 06/18/24 22:28 Hydromorphone Hcl Inj (*Crx) 2 Mg/Ml Vial IV PUSH Q3H PRN Pain Rated 7-10 Dextrose 1,000 mls @ 100 mls/hr 06/18/24 19:29 Dextrose 5% 1,000 Ml IVPB PRN PRN Hypoglycemia Protocol Cefepime HCl 1 gm in 50 mls @ 100 mls/hr 06/18/24 23:00 06/18/24 23:02 Maxipime 1 Gm/Ns 50 Ml IVPB 100 mls/hr Q24H CHAYO Administration Insulin Aspart 1 - 3 units 06/18/24 21:00 06/18/24 21:49 Insulin Aspart (*Bkc) 100 Units/Ml SUB-Q Not Given HS CHAYO Protocol Insulin Aspart 3 - 6 units 06/19/24 08:00 06/19/24 08:26 Insulin Aspart (*Bkc) 100 Units/Ml SUB-Q Not Given TIDWM [facility] Protocol Insulin Glargine 14 units 06/18/24 21:00 06/18/24 21:49 Insulin Glargine (*Bkc) 100 Units/Ml SUB-Q 14 units HS CHAYO Administration Labetalol HCl 200 mg 06/18/24 21:00 06/19/24 08:25 Labetalol Hcl 100 Mg Tablet PO 200 mg Q12H CHAYO Administration Ondansetron HCl 4 mg 06/18/24 15:47 Ondansetron Inj 4 Mg/2 Ml Vial IV PUSH Q4H PRN Nausea Polyethylene Glycol 17 gm 06/19/24 09:00 06/19/24 08:23 Polyethylene Glycol 3350 17 Gm Powd.Pack PO 17 gm QAM CHAYO Administration Sevelamer Carbonate 800 mg 06/19/24 08:00 06/19/24 08:24 Sevelamer Carbonate 800 Mg Tablet PO 800 mg TIDWM CHAYO Administration Vancomycin HCl 1 each 06/18/24 15:54 Vancomycin For Peritoneal Dialysis IVPB PRN PRN Vancomycin Protocol Radiology Results: ITS Impressions Abdomen/Pelvis CT 06/18/24 14:10 IMPRESSION: 1. No evidence of appendicitis, diverticulitis or intestinal obstruction. 2. Moderate ascites. 3. Atrophic kidneys. Dialysis catheter seen in the pelvis. 4. Edematous mesentery seen anteriorly. Clinical correlation advised Labs Labs: Laboratory Results - last 24 hr 06/18/24 06/18/24 06/18/24 13:32 15:22 15:28 WBC 11.5 H RBC 3.76 L Hgb 9.5 L Hct 31.9 L MCV 84.8 MCH 25.3 L MCHC 29.8 L RDW 14.9 H Plt Count 307 MPV 9.1 Immature Gran % (Auto) 0.4 Neut % (Auto) 77.1 H Lymph % (Auto) 14.1 L Robertson % (Auto) 5.6 Eos % (Auto) 2.3 Baso % (Auto) 0.5 Lymph # (Auto) 1.62 Robertson # (Auto) 0.6 Eos # (Auto) 0.3 Baso # (Auto) 0.1 Abs Immat Gran (auto) 0.05 H Absolute Neuts (auto) 8.9 H Absolute Nucleated RBC 0.000 Band Neutrophils % 0 Nucleated RBC % 0.0 Platelet Estimate Adequate Hypochromasia 1+ Anisocytosis 1+ Schistocytes None seen Sodium 135 L Potassium 4.1 Chloride 101 Carbon Dioxide 30 Anion Gap 4 BUN 40 H D Creatinine 11.19 H Estim Creat Clear Calc 6 Estimated GFR 4 L Glucose 140 H POC Capillary Glucose Hemoglobin A1c 6.3 H Lactic Acid 0.7 Calcium 8.5 Phosphorus Magnesium Total Bilirubin 0.4 AST 34 ALT 28 Alkaline Phosphatase 206 H Total Protein 6.0 L Albumin 2.7 L Lipase 78 Serum HCG, Qual Negative Peritoneal Source Peritoneal Color Peritoneal Appearance Peritoneal RBC Periton Nuc Cells Periton Neutrophils Periton Lymphocytes Peritoneal Monocytes Periton Mesothelial 06/18/24 06/18/24 06/19/24 16:47 21:42 04:51 WBC 8.8 RBC 3.39 L Hgb 8.7 L Hct 29.1 L MCV 85.8 MCH 25.7 L MCHC 29.9 L RDW 14.7 H Plt Count 293 MPV 9.3 Immature Gran % (Auto) Neut % (Auto) Lymph % (Auto) Robertson % (Auto) Eos % (Auto) Baso % (Auto) Lymph # (Auto) Robertson # (Auto) Eos # (Auto) Baso # (Auto) Abs Immat Gran (auto) Absolute Neuts (auto) Absolute Nucleated RBC Band Neutrophils % Nucleated RBC % Platelet Estimate Hypochromasia Anisocytosis Schistocytes Sodium 132 L Potassium 3.8 Chloride 100 Carbon Dioxide 28 Anion Gap 4 BUN 39 H Creatinine 9.44 H Estim Creat Clear Calc 8 Estimated GFR 4 L Glucose 134 H POC Capillary Glucose 164 H Hemoglobin A1c Lactic Acid Calcium 8.2 L Phosphorus 5.0 H Magnesium 2.1 Total Bilirubin AST ALT Alkaline Phosphatase Total Protein Albumin Lipase Serum HCG, Qual Peritoneal Source Peritoneal fluid Peritoneal Color Yellow Peritoneal Appearance Cloudy A Peritoneal RBC < 2000 Periton Nuc Cells 7063 H Periton Neutrophils 84 H Periton Lymphocytes 6 Peritoneal Monocytes 9 Periton Mesothelial 1 06/19/24 08:10 WBC RBC Hgb Hct MCV MCH MCHC RDW Plt Count MPV Immature Gran % (Auto) Neut % (Auto) Lymph % (Auto) Robertson % (Auto) Eos % (Auto) Baso % (Auto) Lymph # (Auto) Robertson # (Auto) Eos # (Auto) Baso # (Auto) Abs Immat Gran (auto) Absolute Neuts (auto) Absolute Nucleated RBC Band Neutrophils % Nucleated RBC % Platelet Estimate Hypochromasia Anisocytosis Schistocytes Sodium Potassium Chloride Carbon Dioxide Anion Gap BUN Creatinine Estim Creat Clear Calc Estimated GFR Glucose POC Capillary Glucose 67 Hemoglobin A1c Lactic Acid Calcium Phosphorus Magnesium Total Bilirubin AST ALT Alkaline Phosphatase Total Protein Albumin Lipase Serum HCG, Qual Peritoneal Source Peritoneal Color Peritoneal Appearance Peritoneal RBC Periton Nuc Cells Periton Neutrophils Periton Lymphocytes Peritoneal Monocytes Periton Mesothelial Quality VTE Prophylaxis VTE prophylaxis: pharmacologic ordered -Patient's previous records reviewed on admission -ER notes reviewed in detail on admission -discussed all findings and current treatment plan with patient/Family/POA -Consultations reviewed for recommendations -Patient's disposition for safe discharge discussed with family caseworker Dictation performed by [employer] direct speech recognition software, therefore leadership recruiter variants and typographical errors may occur. Hospitalist MIPS Advance Care Plan I have confirmed that the patient's Advanced Care Plan is present, code status is documented, or surrogate decision maker is listed in patient medical record.: Yes Medication Reconciliation I have utilized all available resources to obtain, update and review the patients current medications (includes all prescriptions, OTC, herbals, cannabis, and nutritional supplements).: Yes The patient is not eligible for med reconciliation; the patient is in a emergent medical situation where delaying treatment would jeopardize the patients health.: No
--- NOTE | 2024-06-19 09:55 | P.CONNP_ITS ---
Assessment and Plan Assessment and plan (1) End-stage renal disease on peritoneal dialysis: Code(s): N18.6 - End stage renal disease; Z99.2 - Dependence on renal dialysis Status: Chronic Assessment and Plan: The patient has end-stage renal disease. He gets peritoneal dialysis nightly. Volume status looks okay. Electrolytes look okay. Looks like she has been doing her dialysis routinely. She does have abdominal pain and the fluid shows 7063 white cells. The patient has peritonitis. She has had frequent episodes in the past. She has had retraining several times. It is not clear what the issue is with her recurrent peritonitis. Possibly is related to straining on stools? It does not look like she has a para-peritoneal source for her infection. No sign of diverticulitis or bladder infection or gallbladder issues. The patient has responded well to IV antibiotics. She is currently getting cefepime and she is on the vancomycin protocol. Tomorrow will give her IP vancomycin if the pharmacy can do this. The patient I discussed at length the appearance of her PD fluid. She is confused about the subjects of clarity (clear vs cloudy), and color ( i.e. colorless verses yellow). I explained that the PD fluid can be any color between colorless and yellow. Just like urine can do this. I think she seemed to appreciate what this meant. If the PD fluid is yellow the or if it is clear there is nothing especially wrong it is just what the body needs to get rid of. The fluid should always be clear, i.e. she should be able to read a newspaper underneath the bag of fluid. If it is cloudy than this suggests infection. After this discussion she said that her PD fluid on Thursday morning was yellow but clear. I guess this must have been early in the infection because it was frankly cloudy in appearance when the dialysis nurse looked at it. Long discussion about this. (2) Diabetes mellitus type 2, insulin dependent: Code(s): E11.9 - Type 2 diabetes mellitus without complications; Z79.4 - watermelon inspector (current) use of insulin Status: Chronic Assessment and Plan: The patient has diabetes. Hospitalist to manage this. (3) Hypertension: Code(s): I10 - Essential (primary) hypertension Status: Acute Assessment and Plan: Blood pressure was high when she came in. And higher yesterday evening but better now. She is on amlodipine, hydralazine, labetalol at home. Will change to nifedipine. (4) Normocytic anemia: Code(s): D64.9 - Anemia, unspecified Status: Acute Assessment and Plan: Hemoglobin is 8.7. Will give her Epogen starting tomorrow. Blood pressure meds being adjusted so hopefully will be able to give the Epogen tomorrow (5) Renal osteodystrophy: Code(s): N25.0 - Renal osteodystrophy Status: Acute Assessment and Plan: Will check a phosphorus in the morning. long talk with the patient about drinking milk. She is upset that the cafeteria will not give her milk. She is on a renal diet. This protects her blood vessels and bones from the ravages of hyperphosphatemia. Milk and dairy are like poison for her. She should try to avoid this at all costs. History of Present Illness Reason for Consult Consult date: 06/19/24 Chief Complaint Chief complaint: Abdominal pain, concern for SBP History of Present Illness Narrative: rachna is a very pleasant 44-year-old lady who has multiple medical problems including end-stage renal disease on peritoneal dialysis, frequent peritonitis episodes, hypertension, diabetes, diverticulosis, history of diverticulitis, chronic constipation, anemia, renal osteodystrophy, GERD, and history of pneumonia. The patient says that she was doing well until last Thursday when she developed worsened constipation and some belly discomfort. She went to see the doctor and was told that this was due to constipation. I believe this was an urgent care center. At the time her fluid was clear she says. she felt fine then Thursday evening she started having pain again. Her PD fluid was yellow but still clear she says. Thursday morning she had even more pain and so came into the hospital Thursday afternoon. She was evaluated in the emergency room. CT scan was unremarkable. Dialysis nurse came in to check her PD fluid and it was cloudy. She was placed on IV antibiotics. She received dialysis overnight. This morning her fluid is more clear. She did not have any belly pain this morning at all but then when she ate she developed some mild abdominal discomfort and still has this now. She says she does not think she had a break in technique. She has been straining at her stool. Sugars have been okay. Blood pressure has been okay. No chest pain or shortness of breath. Review of Systems 2 Constitutional: Constitutional: Reports no additional constitutional complaints Eyes: Eyes: Reports no additional eye complaints ENT: Reports system reviewed and no additional complaints, except as documented Cardiovascular: Cardiovascular: Reports no additional cardiovascular complaints Respiratory: Respiratory: Reports no additional respiratory complaints Gastrointestinal: Gastrointestinal: Reports no additional gastrointestinal complaints Genitourinary: Genitourinary: Reports no additional female genitourinary complaints Musculoskeletal: Musculoskeletal: Reports no additional musculoskeletal complaints Integumentary/Breasts: Skin/Breast: Reports system reviewed and no additional complaints, except as docu Neurologic: Reports system reviewed and no additional complaints, except as documented Psychiatric: Psychiatric: Reports no additional psychiatric complaints Endocrine: Endocrine: Reports no additional endocrine complaints [facility] Past Medical History Medical History Insulin dependent type 2 diabetes mellitus End-stage renal disease on peritoneal dialysis Obesity (BMI 30-39.9) Erythropoietin deficiency anemia Gastroesophageal reflux Arthritis Right wrist left knee Irritable bowel syndrome Diverticulitis Pneumonia Peripheral neuropathy Hypertension Surgical History Surgical History History of section x3 History of dilation and curettage History of appendectomy History of cholecystectomy History of salpingo-oophorectomy History of tubal ligation Family History Family History Mother Diabetes mellitus Breast cancer Sibling History of blood clots due to blood clot Heart disease Sister has something wrong with her heart Father Hypertension Prostate carcinoma Daughter , 06/08/2021, 19yo Pulmonary embolism Social History Social History Social History: Surrogate medical decision maker: Robert Smith, daughter. Code status: Full code. Smoking status: Never smoker Second hand tobacco smoke exposure: Yes Alcohol intake: never Substance use: former Substance use type: does not use Do You Feel Safe in your Home?: Yes Lack of Transportation: YES Lack of Food: Never True Current Housing: I Have Housing Concerned About Future Housing: No Difficulty Paying Gas/Electric Bills: No Difficulty Paying for Meds: No Currently Unemployed: No Education: High School Diploma/GED Difficulty w/ Childcare or Family Care: No Living arrangements: with family Additional living arrangements comments: Lives with family in [place]. 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 Spiritual care concerns: No Agree to blood products: Yes Meds Home Medications and Allergies Home Medications ?Medication ?Instructions ?Recorded ?Confirmed ?Type blood sugar diagnostic (Blood #100 ea 12/30/23 06/18/24 Rx Glucose Test strips) blood-glucose meter (Blood Glucose #1 ea 12/30/23 06/18/24 Rx Monitoring kit) gabapentin 100 mg capsule 200 mg (2 x 100 mg) PO TID #540 12/30/23 06/18/24 Rx caps lancets 31 gauge #100 ea 12/30/23 06/18/24 Rx hydralazine 100 mg tablet 100 mg PO Q12H 03/07/24 06/18/24 History labetalol 200 mg tablet 200 mg PO Q12H 03/22/24 06/18/24 History aspirin 81 mg tablet,delayed See Rx Instructions .Route 05/30/24 06/18/24 Rx release .COMPLEX #90 tabs acetaminophen 500 mg tablet 1,000 mg (2 x 500 mg) PO TID PRN 06/09/24 06/18/24 Rx tessie 7 days #180 tabs amlodipine 10 mg tablet 10 mg PO DAILY #90 tabs 06/09/24 06/18/24 Rx blood-glucose sensor (FreeStyle #2 ea 06/09/24 06/18/24 Rx Alexandro 3 Plus Sensor device) insulin glargine 100 unit/mL (3 14 unit (0.14 mL) subcut HS #15 mL 06/09/24 06/18/24 Rx mL) subcutaneous pen (Lantus Solostar U-100 Insulin) pen needle, diabetic 32 gauge x #1 pkg 06/09/24 06/18/24 Rx sevelamer HCl 800 mg tablet 800 mg PO TID 06/18/24 06/18/24 History Allergies Allergy/AdvReac Type Severity Reaction Status Date / Time metronidazole Allergy Intermediate Rash Verified 06/18/24 12:40 omeprazole Allergy Intermediate Rash Verified 06/18/24 12:40 Vital Signs Vital Signs - 24 hr 06/18/24 12:46 06/18/24 13:34 06/18/24 18:15 Temperature 97.8 F 98.7 F Pulse Rate 80 82 79 Respiratory Rate 18 16 18 Blood Pressure 149/75 H 145/82 H 210/92 H Pulse Oximetry 99 100 100 Oxygen Delivery Room Air Room Air 06/18/24 19:08 06/18/24 19:52 06/18/24 20:00 Temperature 97.8 F Pulse Rate 79 75 Respiratory Rate 18 Blood Pressure 219/93 H 169/75 H Pulse Oximetry 100 Oxygen Delivery 06/18/24 20:00 06/18/24 20:41 06/19/24 00:00 Temperature 97.8 F Pulse Rate 74 72 Respiratory Rate 16 Blood Pressure 164/68 H Pulse Oximetry 98 100 Oxygen Delivery Room Air Room Air 06/19/24 04:00 06/19/24 08:00 06/19/24 08:25 Temperature 97.8 F Pulse Rate 77 80 72 Respiratory Rate 18 18 Blood Pressure 143/65 H 170/89 H Pulse Oximetry 100 100 Oxygen Delivery 06/19/24 08:31 Temperature Pulse Rate Respiratory Rate Blood Pressure Pulse Oximetry Oxygen Delivery Room Air Exam 2 Narrative: Exam Narrative: Well developed well-nourished female in no acute distress Skin is warm and dry without rash Head normocephalic atraumatic Eyes normal sclerae and conjunctivae Mouth normal lips teeth and gums Neck no nodes no thyromegaly no carotid bruits Axillae no nodes Back no CVA tenderness Lungs symmetric and clear to auscultation and percussion Heart regular rate and rhythm without rub or gallop Abdomen bowel sounds positive soft and mildly and diffusely tender, no HSM, masses, or bruits. exit site clean and nontender, and tunnel nontender. Extremities no cyanosis, clubbing, or edema Pulses 2+ equal in radial arteries Psychological not anxious or depressed Neuro alert and oriented x3 motor 5/5 cranial nerves 2-12 intact reflexes 2+ and equal in the biceps and patellar tendons cerebellar normal rapid alternating movements Results Lab Results 06/19/24 04:51 06/19/24 04:51 Lab results: Most recent lab results Calcium 8.2 mg/dL (8.4-10.2) L 06/19/24 04:51 Phosphorus 5.0 mg/dL (2.5-4.5) H 06/19/24 04:51 Magnesium 2.1 mg/dL (1.6-2.3) 06/19/24 04:51
--- NOTE | 2024-06-19 09:56 | PM.EVENT ---
Event Note Event Note Event Note: Patient is on dialysis and tolerating it well. She was seen at 9:25 a.m. fluid status looks good. Potassium is okay. Bicarbonate level is okay.
[2024-06-19] MEDS: HYDROmorphone HCL INJ (*CRX) 2 MG/ML VIAL 0.5 MG IV PUSH ×2 (10:10→13:38)
[2024-06-19 11:50] LABS: Glucose Point of Care 113 mg/dl (65-105)
[2024-06-19] MEDS: NIFEdipine 30 MG TAB.ER.24 PO (12:04)
[2024-06-19 16:57] LABS: Glucose Point of Care 81 mg/dl (65-105)
[2024-06-19] MEDS: LACTULOSE 20 GM/30 ML UDC PO ×2 (17:33→23:02)
[2024-06-19] MEDS: VANCOMYCIN HCL IV CONT (19:25)
[2024-06-19] MEDS: PERITONEAL DIALYSIS IV CONT (19:25)
[2024-06-19] MEDS: LACTULOSE ENEMA 200 GM/1,000 ML ENEMA RECTAL (20:04)
[2024-06-19 21:18] LABS: Glucose Point of Care 117 mg/dl (65-105)
[2024-06-19] MEDS: HYDROcodone/acetaminophen (*CRX) 5-325 MG TABLET 1 TAB PO (22:25)
[2024-06-19] MEDS: CEFEPIME 1 GM/NS 50 ML 1 GM/50 ML BAG IVPB (22:26)
[2024-06-20] VITALS (11 sets, daily range): BP systolic 104–132; BP diastolic 53–66; PULSE 73–82; RESP 12–20; TEMP 36.4–37.1; O2SAT 99–100
[2024-06-20] MEDS: diphenhydrAMINE HCl CAP 25 MG CAPSULE PO (03:09)
[2024-06-20] MEDS: LACTULOSE 20 GM/30 ML UDC PO ×2 (05:24→12:02)
[2024-06-20 05:34] LABS: Hematocrit 30.9 % (37.0-47.0); Hemoglobin 9.2 g/dL (12.0-15.0); Mean Corpuscular HGB Conc 29.8 g/dl (32-36); Mean Corpuscular Hemoglobin 25.8 pg (26-34); Mean Corpuscular Volume 86.6 fl (80-100); Mean Platelet Volume 9.3 fl (7.4-10.4); Platelet Count Result 295 k/mm3 (150-375); Red Blood Count 3.57 M/mm3 (4.2-5.4); Red Cell Distribution Width 14.7 % (11.5-14.5); White Blood Count 8.5 K/mm3 (4.5-10.0)
[2024-06-20 05:50] LABS: Alanine Aminotransferase 21 U/L (6-35); Albumin Level 2.6 g/dL (3.5-5.1); Alkaline Phosphatase 158 U/L (38-126); Anion Gap 8 mmol/L (4-12); Aspartate Amino Transferase 23 U/L (14-36); Bilirubin,Total 0.3 mg/dL (0.2-1.3); Blood Urea Nitrogen 37 mg/dL (7-17); Calcium 8.1 mg/dL (8.4-10.2); Carbon Dioxide 26 mmol/L (22-30); Chloride 98 mmol/L (98-107); Estimated CRCL calculation 8 ml/min; Estimated Glomerular Filt Rate 4; Glucose 223 mg/dL (65-110); Phosphorus 5.4 mg/dL (2.5-4.5); Potassium 3.3 mmol/L (3.4-5.0); Sodium 132 mmol/L (137-145)
--- NOTE | 2024-06-20 07:31 | P.PNIM_ITS ---
Progress Note: A&P Assessment and Plan (1) Spontaneous bacterial peritonitis: Code(s): K65.2 - Spontaneous bacterial peritonitis Status: Acute Assessment and Plan: patient presented to emergency department with complaints of abdominal pain for her peritoneal dialysis nurse she had cloudy peritoneal fluid and suggested coming to the emergency department she has been afebrile with normal WBC and Peritoneal fluid was cloudy per dialysis nurse and she has been started on empiric antibiotics to cover for probable spontaneous bacterial peritonitis. [id number] nucleated cells were seen on fluid cell count though Gram stain is pending at this time. She has still not had a bowel movement though there was no evidence of ileus on imaging and she has bowel sounds. patient treated for bacterial peritonitis 02/2024 which was positive for staphylococcus epidermis. Patient reports straining for BM unsure the last one she has had. * Nephrology following * continue Vancomycin and cefepime pending cultures * daily weights * serial CMP monitor for signs of sepsis * pain management -on cefepime and vanc will add probiotics (2) Constipation: Code(s): K59.00 - Constipation, unspecified Status: Acute Assessment and Plan: Patient with reports of constipation no obstruction or fecal stasis on CT abdomen * given bisacodyl suppository overnight * Lactulose Q6hr until BM * gave Lactulose Enema x 1 having BMs will change lactulose to prn (3) End-stage renal disease on peritoneal dialysis: Code(s): N18.6 - End stage renal disease; Z99.2 - Dependence on renal dialysis Status: Chronic Assessment and Plan: Patient currently on peritoneal dialysis * nephrology consulted * Avoid nephrotoxic drugs. * Monitor antihypertensive drug therapy. * Avoid NSAIDs. * Routine CMP monitoring GFR. * Monitor electrolytes especially potassium. * Antibiotic doses depending on creatinine clearance. -nephrology is following (4) Insulin dependent type 2 diabetes mellitus: Code(s): E11.9 - Type 2 diabetes mellitus without complications; Z79.4 - shelter ( current) use of insulin Status: Acute Assessment and Plan: * Accu-Cheks a.c. HS * sliding scale insulin * resume patient's home long-acting 14 Units * Diabetic/Renal diet * Watch for hypoglycemia/hypoglycemic protocol ordered BS 140-220's (5) Hypertension: Code(s): I10 - Essential (primary) hypertension Status: Chronic Assessment and Plan: patient has been running hypertensive since admission however she did report she had not taken her daily hyperintense medications * continue with labetalol, hydralazine, and amlodipine * monitor BP per unit protocol - amlodipine, hydralazine, nifedipine, (added this addmission), labetalol 103-135/65's Plan Code status: Full code per patient DVT prophylaxis: Heparin Stress ulcer prophylaxis: NA PT/OT notes: Ambulatory Disposition: patient continues admission to the medical unit for further evaluation and treatment of possible bacterial peritonitis continue with peritoneal dialysis nephrology following further recommendations. Patient is ambulatory on own and plan will be to return home at discharge. Time Spent With Patient Time with patient: 25 - 35 minutes Subjective Date/time seen: 06/20/24 07:31 Interval history: Patient is a 44-year-old female who was admitted for further evaluation of possible spontaneous bacterial peritonitis and abdominal pain. peritoneal fluid has been sent for culture nephrology consulted appreciate all recommendations. 06/18/24: patient afebrile overnight, normal WBC, and culture still pending. She is still reporting ABD pain and inability to have a bowel movement states she can no remember the last time she had one. Also complaining that she isn't allowed milk due to her renal diet and she uses this at home to help her have a BM. Nephrology and myself explained in detail why she should avoid milk because of the serious side effects. 06/20 pt is seen and examined. Had been having several BMs. some itchiness but no hives, rash. Reports that sometimes antibiotics cause yeast infection but no symptoms yet- will hold on with ordering medication for now. Eating and drinking ok. in good spirit. Review of Systems Review of Systems: 12 systems were reviewed and are negativ e except for as per HPI. All systems reviewed & are unremarkable except as noted in HPI and below Exam Narrative: General: Nontoxic-appearing female sitting up in bed in no acute distress. Weight: 90.7 kg. BMI: 30.5. HEENT: PERRL, EOMI. Sclera anicteric. Oral mucosa moist. Oropharynx clear. Neck: Supple. Respiratory: Lungs are clear to auscultation bilaterally. Cardiovascular: Regular rate and rhythm with S1-S2. Soft murmur the left sternal border. Gastrointestinal: Abdomen is soft and nondistended with positive bowel sounds. She is tender to palpation throughout the periumbilical region without guarding or rebound tenderness. Positive bowel sounds. Peritoneal dialysis catheter dressing is clean, dry, and intact. Peritoneal fluid was reportedly cloudy. Skin: Warm and dry. Extremities: No cyanosis, clubbing, or edema. Radial and pedal pulses intact. Neurological: Alert. Cranial nerves 2-12 are grossly intact. No gross focal deficits to casual conversation. Psychiatric: Pleasant and cooperative with normal mood and affect. Judgment and insight intact. Const: General: comfortable and no acute distress Other: Pleasant female HENMT: Face/Nose/Sinus: Normal nares present Mouth: Yes moist mucous membranes Eyes: General: appearance normal, both eyes and all related structures Sclera: sclerae normal Pupils: Equal, round and reactive pupils present Neck: Neck: supple and no JVD Resp: Effort & Inspection: normal respiratory effort Auscultation: clear to auscultation bilaterally Cardio: Rate: regular rate Rhythm: regular rhythm GI: Other: Abdomen is soft and nondistended with positive bowel sounds. She is tender to palpation throughout the periumbilical region without guarding or rebound tenderness. Positive bowel sounds. Peritoneal dialysis catheter dressing is clean, dry, and intact. Peritoneal fluid was reportedly cloudy. Skin: General skin exam: normal color and no rashes or lesions noted Wounds: no wounds Neuro: General: gait normal Cranial nerves: Yes Equal, round and reactive pupils present Speech: normal speech Motor exam (neuro): 5/5 motor strength present throughout Sensory Exam: normal sensation Extrem: General: normal to inspection Psych: Mental Status: mental status grossly normal Affect: normal affect Objective Data Vital Signs Vital Signs: Vital Signs - 24 hr 06/19/24 08:00 06/19/24 08:25 06/19/24 08:31 Temperature Pulse Rate 80 72 Respiratory Rate 18 Blood Pressure 170/89 H Pulse Oximetry 100 Oxygen Delivery Room Air 06/19/24 16:00 06/19/24 20:00 06/19/24 20:04 Temperature 98.2 F Pulse Rate 82 82 Respiratory Rate 16 16 Blood Pressure 135/65 128/66 Pulse Oximetry 100 100 Oxygen Delivery Room Air 06/19/24 20:05 06/20/24 00:15 06/20/24 05:07 Temperature 98.1 F 97.7 F Pulse Rate 82 75 74 Respiratory Rate 16 14 Blood Pressure 104/61 131/66 Pulse Oximetry 100 100 Oxygen Delivery Intake/Output Intake/Output: Intake & Output 06/17/24 06/18/24 06/19/24 06/20/24 23:59 23:59 23:59 23:59 Intake Total 1290 2236 250 Output Total 300 400 Balance 1290 1936 -150 Meds/Results Medications: Active Medications Generic Name Dose Route Start Last Admin Trade Name Freq PRN Reason Stop Dose Admin Acetaminophen 650 mg 06/18/24 15:47 Acetaminophen 325 Mg Tablet PO Q4H PRN Mild Pain (1-3) or Fever Hydrocodone Bitart/Acetaminophen 1 tab 06/19/24 15:48 06/19/24 22:25 Hydrocodone/Acetaminophen (*Crx) 5-325 Mg Tablet PO 1 tab Q4H PRN Administration Pain Rated 4-6 Aspirin 81 mg 06/19/24 09:00 06/19/24 08:24 Aspirin 81 Mg Enteric Tablet BY MOUTH 81 mg DAILY CHAYO Administration Dextrose 12.5 gm 06/18/24 19:29 Dextrose 50% 25 Gm/50 Ml Syringe IV PUSH PRN PRN Hypoglycemia Protocol Diphenhydramine HCl 25 mg 06/20/24 02:59 06/20/24 03:09 Diphenhydramine Hcl Cap 25 Mg Capsule PO 25 mg Q6H PRN Administration Itching Epoetin Srinivas-epbx 10,000 units 06/20/24 09:00 Epoetin Srinivas-Epbx 10,000 Units/Ml Vial SUB-Q MOWEFR@09 CHAYO Gabapentin 200 mg 06/18/24 19:35 06/19/24 17:32 Gabapentin 100 Mg Capsule PO 200 mg TID CHAYO Administration Glucagon 1 mg 06/18/24 19:29 Glucagon For Inj 1 Mg Vial IM PRN PRN Hypoglycemia Protocol Glucose 15 gm 06/18/24 19:29 Glucose Oral Gel 15 Gm Of Glucse In 37.5 Gm Tube PO PRN PRN Hypoglycemia Protocol Heparin Sodium (Porcine) 5,000 units 06/19/24 09:00 06/19/24 20:06 Heparin Sodium 5,000 Units/Ml Vial SUB-Q 5,000 units Q12HR CHAYO Administration Hydralazine HCl 100 mg 06/18/24 21:00 06/19/24 20:05 Hydralazine Hcl 50 Mg Tablet PO 100 mg Q12H CHAYO Administration Dextrose 1,000 mls @ 100 mls/hr 06/18/24 19:29 Dextrose 5% 1,000 Ml IVPB PRN PRN Hypoglycemia Protocol Cefepime HCl 1 gm in 50 mls @ 100 mls/hr 06/18/24 23:00 06/19/24 22:26 Maxipime 1 Gm/Ns 50 Ml IVPB 100 mls/hr Q24H CHAYO Administration Insulin Aspart 1 - 3 units 06/18/24 21:00 06/19/24 20:08 Insulin Aspart (*Bkc) 100 Units/Ml SUB-Q Not Given HS [facility] Protocol Insulin Aspart 3 - 6 units 06/19/24 08:00 06/19/24 17:32 Insulin Aspart (*Bkc) 100 Units/Ml SUB-Q Not Given TIDWM [facility] Protocol Insulin Glargine 14 units 06/18/24 21:00 06/19/24 20:19 Insulin Glargine (*Bkc) 100 Units/Ml SUB-Q Not Given HS [facility] Labetalol HCl 200 mg 06/18/24 21:00 06/19/24 20:05 Labetalol Hcl 100 Mg Tablet PO 200 mg Q12H CHAYO Administration Lactulose 20 gm 06/19/24 18:00 06/20/24 05:24 Lactulose 20 Gm/30 Ml Udc PO 20 gm Q6HR CHAYO Administration Nifedipine 60 mg 06/20/24 09:00 Nifedipine 30 Mg Tab.Er.24 PO QAM CHAYO Ondansetron HCl 4 mg 06/18/24 15:47 Ondansetron Inj 4 Mg/2 Ml Vial IV PUSH Q4H PRN Nausea Sevelamer Carbonate 800 mg 06/19/24 08:00 06/19/24 17:32 Sevelamer Carbonate 800 Mg Tablet PO 800 mg TIDWM [facility] Administration Vancomycin HCl 1 each 06/18/24 15:54 Vancomycin For Peritoneal Dialysis IVPB PRN PRN Vancomycin Protocol Radiology Results: ITS Impressions Abdomen/Pelvis CT 06/18/24 14:10 IMPRESSION: 1. No evidence of appendicitis, diverticulitis or intestinal obstruction. 2. Moderate ascites. 3. Atrophic kidneys. Dialysis catheter seen in the pelvis. 4. Edematous mesentery seen anteriorly. Clinical correlation advised Labs Labs: Laboratory Results - last 24 hr 06/19/24 06/19/24 06/19/24 08:10 11:48 16:54 WBC RBC Hgb Hct MCV MCH MCHC RDW Plt Count MPV Sodium Potassium Chloride Carbon Dioxide Anion Gap BUN Creatinine Estim Creat Clear Calc Estimated GFR Glucose POC Capillary Glucose 67 113 H 81 Calcium Phosphorus Total Bilirubin AST ALT Alkaline Phosphatase Total Protein Albumin 06/19/24 06/20/24 20:07 05:26 WBC 8.5 RBC 3.57 L Hgb 9.2 L Hct 30.9 L MCV 86.6 MCH 25.8 L MCHC 29.8 L RDW 14.7 H Plt Count 295 MPV 9.3 Sodium 132 L Potassium 3.3 L Chloride 98 Carbon Dioxide 26 Anion Gap 8 BUN 37 H Creatinine 9.59 H Estim Creat Clear Calc 8 Estimated GFR 4 L Glucose 223 H POC Capillary Glucose 117 H Calcium 8.1 L Phosphorus 5.4 H Total Bilirubin 0.3 AST 23 ALT 21 Alkaline Phosphatase 158 H Total Protein 6.0 L Albumin 2.6 L Quality VTE Prophylaxis VTE prophylaxis: pharmacologic ordered
[2024-06-20 07:41] LABS: Glucose Point of Care 226 mg/dl (65-105)
[2024-06-20] MEDS: LABETALOL HCL 100 MG TABLET 200 MG PO ×2 (08:19→20:00)
[2024-06-20] MEDS: hydrALAZINE HCL 50 MG TABLET 100 MG PO ×2 (08:19→20:00)
[2024-06-20] MEDS: GABAPENTIN 100 MG CAPSULE 200 MG PO ×3 (08:19→17:12)
[2024-06-20] MEDS: SEVELAMER CARBONATE 800 MG TABLET PO ×3 (08:19→17:12)
[2024-06-20] MEDS: NIFEdipine 30 MG TAB.ER.24 60 MG PO (08:19)
[2024-06-20] MEDS: ASPIRIN 81 MG ENTERIC TABLET BY MOUTH (08:19)
[2024-06-20] MEDS: HEPARIN SODIUM 5,000 UNITS/ML VIAL 5000 UNITS SUB-Q ×2 (08:20→20:00)
[2024-06-20] MEDS: INSULIN ASPART (*BKC) 100 UNITS/ML SUB-Q ×2 (08:20→19:59)
--- NOTE | 2024-06-20 10:54 | P.PNNP_ITS ---
Progress Note: A&P Assessment and Plan (1) End stage renal disease: Code(s): N18.6 - End stage renal disease Status: Chronic Assessment and Plan: * continue nightly CCPD * follow electrolytes, volume status, and clearance (2) Peritonitis: Code(s): K65.9 - Peritonitis, unspecified Status: Acute Assessment and Plan: * likely etiology of abdominal pain on admission * as noted by PD fluid analysis * PD fluid cultures with Coag negative Staphylococcus * dosed intraperitoneal vancomycin (today) * will likely continue intraperitoneal antibiotics on discharge (3) Hypertension: Code(s): I10 - Essential (primary) hypertension Status: Chronic Assessment and Plan: * reasonable control * continue home medications * follow trend of hemodynamics (4) Anemia: Code(s): D64.9 - Anemia, unspecified Status: Chronic Assessment and Plan: * due to ESRD * Epogen while hospitalized * follow trend of H/H (5) Diabetes: Code(s): E11.9 - Type 2 diabetes mellitus without complications Status: Chronic Assessment and Plan: * follow accuchecks * glycemic control per hospitalists Will continue to follow. L Subjective Date/time seen: 06/20/24 10:54 Interval history: Follow-up for end stage renal disease on peritoneal dialysis. Tolerated peritoneal dialysis treatment overnight without any issue or problems ([facility] supervised and seen at 10:45AM); no further abdominal pain noted at the time of my visit; overall, feels significantly better in general in comparison to admission; no apparent distress noted; no other events overnight or earlier this morning. Exam 2 Narrative: General: WD/WN female in NAD Heart: normal S1 and S2; no rub Lungs: clear to auscultation Abdomen: soft, nontender, nondistended, positive bowel sounds Extremities: no cyanosis or clubbing; no edema Skin: warm and intact Objective Data Vital Signs Vital Signs: Vital Signs Temp Pulse Resp BP Pulse Ox O2 Del Method 06/20/24 08:48 98.4 F 74 12 123/53 L 06/20/24 08:19 74 06/20/24 08:00 98.4 F 73 12 123/53 L 100 06/20/24 07:50 Room Air 06/20/24 05:07 97.7 F 74 14 131/66 100 06/20/24 00:15 98.1 F 75 16 104/61 100 06/19/24 20:05 82 06/19/24 20:04 98.2 F 82 16 128/66 100 06/19/24 20:00 Room Air 06/19/24 16:00 82 16 135/65 100 Intake/Output Intake/Output: Intake & Output 06/17/24 06/18/24 06/19/24 06/20/24 23:59 23:59 23:59 23:59 Intake Total 1290 2236 730 Output Total 300 863 Balance 1290 1936 -133 Meds/Results Medications: Active Medications Generic Name Dose Route Start Last Admin Trade Name Freq PRN Reason Stop Dose Admin Acetaminophen 650 mg 06/18/24 15:47 Acetaminophen 325 Mg Tablet PO Q4H PRN Mild Pain (1-3) or Fever Hydrocodone Bitart/Acetaminophen 1 tab 06/19/24 15:48 06/19/24 22:25 Hydrocodone/Acetaminophen (*Crx) 5-325 Mg Tablet PO 1 tab Q4H PRN Administration Pain Rated 4-6 Aspirin 81 mg 06/19/24 09:00 06/20/24 08:19 Aspirin 81 Mg Enteric Tablet BY MOUTH 81 mg DAILY CHAYO Administration Dextrose 12.5 gm 06/18/24 19:29 Dextrose 50% 25 Gm/50 Ml Syringe IV PUSH PRN PRN Hypoglycemia Protocol Diphenhydramine HCl 25 mg 06/20/24 02:59 06/20/24 03:09 Diphenhydramine Hcl Cap 25 Mg Capsule PO 25 mg Q6H PRN Administration Itching Epoetin Srinivas-epbx 10,000 units 06/20/24 09:00 06/20/24 12:03 Epoetin Srinivas-Epbx 10,000 Units/Ml Vial SUB-Q 10,000 units MOWEFR@09 CHAYO Administration Gabapentin 200 mg 06/18/24 19:35 06/20/24 12:02 Gabapentin 100 Mg Capsule PO 200 mg TID CHAYO Administration Glucagon 1 mg 06/18/24 19:29 Glucagon For Inj 1 Mg Vial IM PRN PRN Hypoglycemia Protocol Glucose 15 gm 06/18/24 19:29 Glucose Oral Gel 15 Gm Of Glucse In 37.5 Gm Tube PO PRN PRN Hypoglycemia Protocol Heparin Sodium (Porcine) 5,000 units 06/19/24 09:00 06/20/24 08:20 Heparin Sodium 5,000 Units/Ml Vial SUB-Q 5,000 units Q12HR CHAYO Administration Hydralazine HCl 100 mg 06/18/24 21:00 06/20/24 08:19 Hydralazine Hcl 50 Mg Tablet PO 100 mg Q12H CHAYO Administration Hydroxyzine HCl 25 mg 06/20/24 12:21 Hydroxyzine Hcl 25 Mg Tablet PO Q6H PRN Itching Dextrose 1,000 mls @ 100 mls/hr 06/18/24 19:29 Dextrose 5% 1,000 Ml IVPB PRN PRN Hypoglycemia Protocol Cefepime HCl 1 gm in 50 mls @ 100 mls/hr 06/18/24 23:00 06/19/24 22:26 Maxipime 1 Gm/Ns 50 Ml IVPB 100 mls/hr Q24H CHAYO Administration Insulin Aspart 1 - 3 units 06/18/24 21:00 06/19/24 20:08 Insulin Aspart (*Bkc) 100 Units/Ml SUB-Q Not Given HS [facility] Protocol Insulin Aspart 3 - 6 units 06/19/24 08:00 06/20/24 12:02 Insulin Aspart (*Bkc) 100 Units/Ml SUB-Q Not Given TIDWM [facility] Protocol Insulin Glargine 14 units 06/18/24 21:00 06/19/24 20:19 Insulin Glargine (*Bkc) 100 Units/Ml SUB-Q Not Given HS [facility] Labetalol HCl 200 mg 06/18/24 21:00 06/20/24 08:19 Labetalol Hcl 100 Mg Tablet PO 200 mg Q12H CHAYO Administration Lactulose 20 gm 06/20/24 12:27 Lactulose 20 Gm/30 Ml Udc PO Q6HR PRN constipation Nifedipine 60 mg 06/20/24 09:00 06/20/24 08:19 Nifedipine 30 Mg Tab.Er.24 PO 60 mg QAM [facility] Administration Ondansetron HCl 4 mg 06/18/24 15:47 Ondansetron Inj 4 Mg/2 Ml Vial IV PUSH Q4H PRN Nausea Saccharomyces Boulardii 250 mg 06/20/24 13:00 Saccharomyces Boulardii 250 Mg Capsule PO TID CHAYO Sevelamer Carbonate 800 mg 06/19/24 08:00 06/20/24 12:02 Sevelamer Carbonate 800 Mg Tablet PO 800 mg TIDWM [facility] Administration Vancomycin HCl 1 each 06/18/24 15:54 Vancomycin For Peritoneal Dialysis IVPB PRN PRN Vancomycin Protocol Radiology Results: ITS Impressions Abdomen/Pelvis CT 06/18/24 14:10 IMPRESSION: 1. No evidence of appendicitis, diverticulitis or intestinal obstruction. 2. Moderate ascites. 3. Atrophic kidneys. Dialysis catheter seen in the pelvis. 4. Edematous mesentery seen anteriorly. Clinical correlation advised Labs Labs: Laboratory Tests 06/20/24 05:26 06/20/24 05:26 Calcium 8.1 L Phosphorus 5.4 H Total Bilirubin 0.3 AST 23 ALT 21 Alkaline Phosphatase 158 H Total Protein 6.0 L Albumin 2.6 L Microbiology 06/18/24 16:47 Peritoneal Fluid Anaerobic Culture - Preliminary 06/18/24 16:47 Peritoneal Fluid Aerobic Culture - Preliminary Coag negative Staphylococcus 06/18/24 13:31 Abdominal Fluid Anaerobic Culture - Preliminary 06/18/24 13:31 Abdominal Fluid Aerobic Culture - Preliminary 06/19/24 04:51 Blood Blood Culture - Preliminary 06/18/24 19:43 Blood Blood Culture - Preliminary 06/18/24 16:47 Peritoneal Fluid Gram Stain - Final
[2024-06-20 11:24] LABS: MRSA (PCR) NOT DETECTED (NOT DETECTE)
[2024-06-20 11:25] LABS: Glucose Point of Care 65 mg/dl (65-105)
[2024-06-20] MEDS: EPOETIN ALFA-EPBX 10,000 UNITS/ML VIAL 10000 UNITS SUB-Q (12:03)
[2024-06-20] MEDS: SACCHAROMYCES BOULARDII 250 MG CAPSULE PO ×2 (14:04→17:12)
[2024-06-20] MEDS: hydrOXYzine HCL 25 MG TABLET PO (14:04)
[2024-06-20 16:17] LABS: Glucose Point of Care 143 mg/dl (65-105)
[2024-06-20 17:33] LABS: Vancomycin Random 20.5 ug/mL (10-20)
[2024-06-20] MEDS: HYDROcodone/acetaminophen (*CRX) 5-325 MG TABLET 1 TAB PO (19:52)
[2024-06-20] MEDS: INSULIN GLARGINE (*BKC) 100 UNITS/ML 14 UNITS SUB-Q (19:59)
[2024-06-20 21:49] LABS: Glucose Point of Care 206 mg/dl (65-105)
[2024-06-20] MEDS: CEFEPIME 1 GM/NS 50 ML 1 GM/50 ML BAG IVPB (22:33)
[2024-06-20 23:18] LABS: Glucose Point of Care 241 mg/dl (65-105)
[2024-06-21] VITALS (7 sets, daily range): BP systolic 126–144; BP diastolic 56–110; PULSE 75–79; RESP 16; TEMP 36.6–37.1; O2SAT 97–100
[2024-06-21 05:27] LABS: Hematocrit 28.7 % (37.0-47.0); Hemoglobin 8.5 g/dL (12.0-15.0); Mean Corpuscular HGB Conc 29.6 g/dl (32-36); Mean Corpuscular Hemoglobin 25.7 pg (26-34); Mean Corpuscular Volume 86.7 fl (80-100); Mean Platelet Volume 9.9 fl (7.4-10.4); Platelet Count Result 327 k/mm3 (150-375); Red Blood Count 3.31 M/mm3 (4.2-5.4); Red Cell Distribution Width 14.6 % (11.5-14.5); White Blood Count 9.3 K/mm3 (4.5-10.0)
[2024-06-21 05:42] LABS: Alanine Aminotransferase 19 U/L (6-35); Albumin Level 2.5 g/dL (3.5-5.1); Alkaline Phosphatase 184 U/L (38-126); Anion Gap 6 mmol/L (4-12); Aspartate Amino Transferase 23 U/L (14-36); Bilirubin,Total 0.2 mg/dL (0.2-1.3); Blood Urea Nitrogen 34 mg/dL (7-17); Calcium 7.9 mg/dL (8.4-10.2); Carbon Dioxide 29 mmol/L (22-30); Chloride 99 mmol/L (98-107); Estimated CRCL calculation 8 ml/min; Estimated Glomerular Filt Rate 4; Glucose 195 mg/dL (65-110); Phosphorus 4.9 mg/dL (2.5-4.5); Potassium 3.3 mmol/L (3.4-5.0); Sodium 134 mmol/L (137-145)
[2024-06-21 07:49] LABS: Glucose Point of Care 130 mg/dl (65-105)
--- NOTE | 2024-06-21 08:11 | P.PNIM_ITS ---
Progress Note: A&P Assessment and Plan (1) Spontaneous bacterial peritonitis: Code(s): K65.2 - Spontaneous bacterial peritonitis Status: Acute Assessment and Plan: patient presented to emergency department with complaints of abdominal pain for her peritoneal dialysis nurse she had cloudy peritoneal fluid and suggested coming to the emergency department she has been afebrile with normal WBC and Peritoneal fluid was cloudy per dialysis nurse and she has been started on empiric antibiotics to cover for probable spontaneous bacterial peritonitis. [id number] nucleated cells were seen on fluid cell count though Gram stain is pending at this time. She has still not had a bowel movement though there was no evidence of ileus on imaging and she has bowel sounds. patient treated for bacterial peritonitis 02/2024 which was positive for staphylococcus epidermis. Patient reports straining for BM unsure the last one she has had. * Nephrology following * continue Vancomycin and cefepime pending cultures * daily weights * serial CMP monitor for signs of sepsis * pain management -on cefepime and vanc will add probiotics -trend WBC, VS/T. (2) Constipation: Code(s): K59.00 - Constipation, unspecified Status: Acute Assessment and Plan: Patient with reports of constipation no obstruction or fecal stasis on CT abdomen * given bisacodyl suppository overnight * Lactulose Q6hr until BM * gave Lactulose Enema x 1 having BMs will change lactulose to prn (3) End-stage renal disease on peritoneal dialysis: Code(s): N18.6 - End stage renal disease; Z99.2 - Dependence on renal dialysis Status: Chronic Assessment and Plan: Patient currently on peritoneal dialysis * nephrology consulted * Avoid nephrotoxic drugs. * Monitor antihypertensive drug therapy. * Avoid NSAIDs. * Routine CMP monitoring GFR. * Monitor electrolytes especially potassium. * Antibiotic doses depending on creatinine clearance. 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 HS * sliding scale insulin * resume patient's home long-acting 14 Units * Diabetic/Renal diet * Watch for hypoglycemia/hypoglycemic protocol ordered BS 140-220's (5) Hypertension: Code(s): I10 - Essential (primary) hypertension Status: Chronic Assessment and Plan: patient has been running hypertensive since admission however she did report she had not taken her daily hyperintense medications * continue with labetalol, hydralazine, and amlodipine * monitor BP per unit protocol - amlodipine, hydralazine, nifedipine, (added this addmission), labetalol 103-135/65's Plan Code status: Full code per patient DVT prophylaxis: Heparin Stress ulcer prophylaxis: NA PT/OT notes: Ambulatory Disposition: patient continues admission to the medical unit for further evaluation and treatment of possible bacterial peritonitis continue with peritoneal dialysis nephrology following further recommendations. Patient is ambulatory on own and plan will be to return home at discharge. Time Spent With Patient Time with patient: 25 - 35 minutes Subjective Date/time seen: 06/21/24 08:11 Interval history: Patient is a 44-year-old female who was admitted for further evaluation of possible spontaneous bacterial peritonitis and abdominal pain. peritoneal fluid has been sent for culture nephrology consulted appreciate all recommendations. 06/18/24: patient afebrile overnight, normal WBC, and culture still pending. She is still reporting ABD pain and inability to have a bowel movement states she can no remember the last time she had one. Also complaining that she isn't allowed milk due to her renal diet and she uses this at home to help her have a BM. Nephrology and myself explained in detail why she should avoid milk because of the serious side effects. 06/20 pt is seen and examined. Had been having several BMs. some itchiness but no hives, rash. Reports that sometimes antibiotics cause yeast infection but no symptoms yet- will hold on with ordering medication for now. Eating and drinking ok. in good spirit. 06/21 pt is tolerating dialysis well. no issues overnight. Nephrology following. OK to discharge per nephrology standpoint. when i stopped by her room, pt was sleeping. RN later called and states that pt is having issues with her vision and wants to leave. When i went to examine her, she was crying that hospital gave her staph infection abd no one explains any thing to her. I went over everything with her yesterday and answered questions to her satisfactions. Today, i explained to her that so far, staphylococcus epidermis is growing in her peritoneal fluid which is consistent with the findings in february. I asked her to stay overnight to get sensitivities back so we can prescribe correct antibiotics. If she choses to leave AMA, i would prob send her with doxy- she would need 21 days of therapy. All this seems to overwhelm her and she kept on crying out loud. Unsure if she heard me or not. I was not able to get more information about her vision complains. She keep saying that all of these meds made her have issues with her eyes but i was not able to get clear explanation abot her symptoms. Review of Systems 2 Review of Systems: 12 systems were reviewed and are negativ e except for as per HPI. All systems reviewed & are unremarkable except as noted in HPI and below Exam Narrative: General: Nontoxic-appearing female sitting up in bed in no acute distress. Weight: 90.7 kg. BMI: 30.5. HEENT: PERRL, EOMI. Sclera anicteric. Oral mucosa moist. Oropharynx clear. Neck: Supple. Respiratory: Lungs are clear to auscultation bilaterally. Cardiovascular: Regular rate and rhythm with S1-S2. Soft murmur the left sternal border. Gastrointestinal: Abdomen is soft and nondistended with positive bowel sounds. She is tender to palpation throughout the periumbilical region without guarding or rebound tenderness. Positive bowel sounds. Peritoneal dialysis catheter dressing is clean, dry, and intact. Peritoneal fluid was reportedly cloudy. Skin: Warm and dry. Extremities: No cyanosis, clubbing, or edema. Radial and pedal pulses intact. Neurological: Alert. Cranial nerves 2-12 are grossly intact. No gross focal deficits to casual conversation. Psychiatric: Pleasant and cooperative with normal mood and affect. Judgment and insight intact. Const: General: comfortable and no acute distress Other: Pleasant female HENMT: Face/Nose/Sinus: Normal nares present Mouth: Yes moist mucous membranes Eyes: General: appearance normal, both eyes and all related structures Sclera: sclerae normal Pupils: Equal, round and reactive pupils present Neck: Neck: supple and no JVD Resp: Effort & Inspection: normal respiratory effort Auscultation: clear to auscultation bilaterally Cardio: Rate: regular rate Rhythm: regular rhythm GI: Other: Abdomen is soft and nondistended with positive bowel sounds. She is tender to palpation throughout the periumbilical region without guarding or rebound tenderness. Positive bowel sounds. Peritoneal dialysis catheter dressing is clean, dry, and intact. Peritoneal fluid was reportedly cloudy. Skin: General skin exam: normal color and no rashes or lesions noted Wounds: no wounds Neuro: General: gait normal Cranial nerves: Yes Equal, round and reactive pupils present Speech: normal speech Motor exam (neuro): 5/5 motor strength present throughout Sensory Exam: normal sensation Extrem: General: normal to inspection Psych: Mental Status: mental status grossly normal Affect: normal affect Objective Data Vital Signs Vital Signs: Vital Signs - 24 hr 06/20/24 08:19 06/20/24 08:48 06/20/24 12:00 Temperature 98.4 F 98.2 F Pulse Rate 74 74 76 Respiratory Rate 12 14 Blood Pressure 123/53 L 114/53 L Pulse Oximetry 100 Oxygen Delivery Fraction of Inspired Oxygen 06/20/24 16:00 06/20/24 19:46 06/20/24 20:00 Temperature 97.6 F 98.7 F Pulse Rate 82 80 80 Respiratory Rate 16 12 Blood Pressure 132/63 132/57 L Pulse Oximetry 100 100 Oxygen Delivery Fraction of Inspired Oxygen 06/20/24 20:00 06/20/24 20:45 06/20/24 23:10 Temperature 98.0 F Pulse Rate 82 80 Respiratory Rate 20 16 Blood Pressure 120/63 Pulse Oximetry 99 99 Oxygen Delivery Room Air Room Air Fraction of Inspired Oxygen 06/21/24 06:02 Temperature 98.8 F Pulse Rate 75 Respiratory Rate 16 Blood Pressure 133/68 Pulse Oximetry 100 Oxygen Delivery Fraction of Inspired Oxygen Intake/Output Intake/Output: Intake & Output 06/18/24 06/19/24 06/20/24 06/21/24 23:59 23:59 23:59 23:59 Intake Total 1290 2286 1618 300 Output Total 300 863 Balance 1290 1986 755 300 Meds/Results Medications: Active Medications Generic Name Dose Route Start Last Admin Trade Name Freq PRN Reason Stop Dose Admin Acetaminophen 650 mg 06/18/24 15:47 Acetaminophen 325 Mg Tablet PO Q4H PRN Mild Pain (1-3) or Fever Hydrocodone Bitart/Acetaminophen 1 tab 06/19/24 15:48 06/20/24 19:52 Hydrocodone/Acetaminophen (*Crx) 5-325 Mg Tablet PO 1 tab Q4H PRN Administration Pain Rated 4-6 Aspirin 81 mg 06/19/24 09:00 06/20/24 08:19 Aspirin 81 Mg Enteric Tablet BY MOUTH 81 mg DAILY CHAYO Administration Dextrose 12.5 gm 06/18/24 19:29 Dextrose 50% 25 Gm/50 Ml Syringe IV PUSH PRN PRN Hypoglycemia Protocol Diphenhydramine HCl 25 mg 06/20/24 02:59 06/20/24 03:09 Diphenhydramine Hcl Cap 25 Mg Capsule PO 25 mg Q6H PRN Administration Itching Epoetin Srinivas-epbx 10,000 units 06/20/24 09:00 06/20/24 12:03 Epoetin Srinivas-Epbx 10,000 Units/Ml Vial SUB-Q 10,000 units MOWEFR@09 CHAYO Administration Gabapentin 200 mg 06/18/24 19:35 06/20/24 17:12 Gabapentin 100 Mg Capsule PO 200 mg TID CHAYO Administration Glucagon 1 mg 06/18/24 19:29 Glucagon For Inj 1 Mg Vial IM PRN PRN Hypoglycemia Protocol Glucose 15 gm 06/18/24 19:29 Glucose Oral Gel 15 Gm Of Glucse In 37.5 Gm Tube PO PRN PRN Hypoglycemia Protocol Heparin Sodium (Porcine) 5,000 units 06/19/24 09:00 06/20/24 20:00 Heparin Sodium 5,000 Units/Ml Vial SUB-Q 5,000 units Q12HR CHAYO Administration Hydralazine HCl 100 mg 06/18/24 21:00 06/20/24 20:00 Hydralazine Hcl 50 Mg Tablet PO 100 mg Q12H CHAYO Administration Hydroxyzine HCl 25 mg 06/20/24 12:21 06/20/24 14:04 Hydroxyzine Hcl 25 Mg Tablet PO 25 mg Q6H PRN Administration Itching Dextrose 1,000 mls @ 100 mls/hr 06/18/24 19:29 Dextrose 5% 1,000 Ml IVPB PRN PRN Hypoglycemia Protocol Cefepime HCl 1 gm in 50 mls @ 100 mls/hr 06/18/24 23:00 06/20/24 23:03 Maxipime 1 Gm/Ns 50 Ml IVPB Infused Q24H CHAYO Infusion Insulin Aspart 1 - 3 units 06/18/24 21:00 06/20/24 19:59 Insulin Aspart (*Bkc) 100 Units/Ml SUB-Q 1 units HS CHAYO Administration Protocol Insulin Aspart 3 - 6 units 06/19/24 08:00 06/20/24 17:12 Insulin Aspart (*Bkc) 100 Units/Ml SUB-Q Not Given [facility] Protocol Insulin Glargine 14 units 06/18/24 21:00 06/20/24 19:59 Insulin Glargine (*Bkc) 100 Units/Ml SUB-Q 14 units HS CHAYO Administration Labetalol HCl 200 mg 06/18/24 21:00 06/20/24 20:00 Labetalol Hcl 100 Mg Tablet PO 200 mg Q12H CHAYO Administration Lactulose 20 gm 06/20/24 12:27 Lactulose 20 Gm/30 Ml Udc PO Q6HR PRN constipation Nifedipine 60 mg 06/20/24 09:00 06/20/24 08:19 Nifedipine 30 Mg Tab.Er.24 PO 60 mg QAM CHAYO Administration Ondansetron HCl 4 mg 06/18/24 15:47 Ondansetron Inj 4 Mg/2 Ml Vial IV PUSH Q4H PRN Nausea Saccharomyces Boulardii 250 mg 06/20/24 13:00 06/20/24 17:12 Saccharomyces Boulardii 250 Mg Capsule PO 250 mg TID CHAYO Administration Sevelamer Carbonate 800 mg 06/19/24 08:00 06/20/24 17:12 Sevelamer Carbonate 800 Mg Tablet PO 800 mg TIDWM CHAYO Administration Vancomycin HCl 1 each 06/18/24 15:54 Vancomycin For Peritoneal Dialysis IVPB PRN PRN Vancomycin Protocol Radiology Results: ITS Impressions Abdomen/Pelvis CT 06/18/24 14:10 IMPRESSION: 1. No evidence of appendicitis, diverticulitis or intestinal obstruction. 2. Moderate ascites. 3. Atrophic kidneys. Dialysis catheter seen in the pelvis. 4. Edematous mesentery seen anteriorly. Clinical correlation advised Labs Labs: Laboratory Results - last 24 hr 06/20/24 06/20/24 06/20/24 09:35 11:10 16:11 WBC RBC Hgb Hct MCV MCH MCHC RDW Plt Count MPV Sodium Potassium Chloride Carbon Dioxide Anion Gap BUN Creatinine Estim Creat Clear Calc Estimated GFR Glucose POC Capillary Glucose 65 143 H Calcium Phosphorus Total Bilirubin AST ALT Alkaline Phosphatase Total Protein Albumin Nasal MRSA (PCR) Not detected Random Vancomycin 06/20/24 06/20/24 06/20/24 16:53 19:55 23:13 WBC RBC Hgb Hct MCV MCH MCHC RDW Plt Count MPV Sodium Potassium Chloride Carbon Dioxide Anion Gap BUN Creatinine Estim Creat Clear Calc Estimated GFR Glucose POC Capillary Glucose 206 H 241 H Calcium Phosphorus Total Bilirubin AST ALT Alkaline Phosphatase Total Protein Albumin Nasal MRSA (PCR) Random Vancomycin 20.5 H 06/21/24 06/21/24 05:16 07:42 WBC 9.3 RBC 3.31 L Hgb 8.5 L Hct 28.7 L MCV 86.7 MCH 25.7 L MCHC 29.6 L RDW 14.6 H Plt Count 327 MPV 9.9 Sodium 134 L Potassium 3.3 L Chloride 99 Carbon Dioxide 29 Anion Gap 6 BUN 34 H Creatinine 10.05 H Estim Creat Clear Calc 8 Estimated GFR 4 L Glucose 195 H POC Capillary Glucose 130 H Calcium 7.9 L Phosphorus 4.9 H Total Bilirubin 0.2 AST 23 ALT 19 Alkaline Phosphatase 184 H Total Protein 6.0 L Albumin 2.5 L Nasal MRSA (PCR) Random Vancomycin Quality VTE Prophylaxis VTE prophylaxis: pharmacologic ordered
[2024-06-21] MEDS: ASPIRIN 81 MG ENTERIC TABLET BY MOUTH (08:58)
[2024-06-21] MEDS: SEVELAMER CARBONATE 800 MG TABLET PO (08:58)
[2024-06-21] MEDS: GABAPENTIN 100 MG CAPSULE 200 MG PO ×2 (08:58→12:08)
[2024-06-21] MEDS: hydrALAZINE HCL 50 MG TABLET 100 MG PO (08:58)
[2024-06-21] MEDS: LABETALOL HCL 100 MG TABLET 200 MG PO (08:59)
[2024-06-21] MEDS: NIFEdipine 30 MG TAB.ER.24 60 MG PO (08:59)
[2024-06-21] MEDS: SACCHAROMYCES BOULARDII 250 MG CAPSULE PO (09:00)
[2024-06-21] MEDS: HEPARIN SODIUM 5,000 UNITS/ML VIAL 5000 UNITS SUB-Q (09:03)
[2024-06-21] MEDS: EPOETIN ALFA-EPBX 10,000 UNITS/ML VIAL 10000 UNITS SUB-Q (10:23)
--- NOTE | 2024-06-21 10:25 | P.PNNP_ITS ---
Progress Note: A&P Assessment and Plan (1) End stage renal disease: Code(s): N18.6 - End stage renal disease Status: Chronic Assessment and Plan: * continue nightly CCPD * follow electrolytes, volume status, and clearance (2) Peritonitis: Code(s): K65.9 - Peritonitis, unspecified Status: Acute Assessment and Plan: * likely etiology of abdominal pain on admission * as noted by PD fluid analysis * PD fluid cultures with Staph epidermis * dosed intraperitoneal vancomycin (on 06/20) * will likely continue intraperitoneal antibiotics on discharge (3) Hypertension: Code(s): I10 - Essential (primary) hypertension Status: Chronic Assessment and Plan: * reasonable control * continue home medications * follow trend of hemodynamics (4) Anemia: Code(s): D64.9 - Anemia, unspecified Status: Chronic Assessment and Plan: * due to ESRD * Epogen while hospitalized * follow trend of H/H (5) Diabetes: Code(s): E11.9 - Type 2 diabetes mellitus without complications Status: Chronic Assessment and Plan: * follow accuchecks * glycemic control per hospitalists Will continue to follow. L Subjective Date/time seen: 06/21/24 10:25 Interval history: Follow-up for end stage renal disease on peritoneal dialysis. Appears to be doing reasonably well; no further abdominal pain or discomfort at this time; tolerated peritoneal dialysis treatment overnight without any issues or problems; no other acute complaints voiced when seen; anxious for discharge today. Exam 2 Narrative: General: WD/WN female in NAD Heart: normal S1 and S2; no rub Lungs: clear to auscultation Abdomen: soft, nontender, nondistended, positive bowel sounds Extremities: no cyanosis or clubbing; no edema Skin: no rash Objective Data Vital Signs Vital Signs: Vital Signs Temp Pulse Resp BP Pulse Ox O2 Del Method FiO2 06/21/24 09:02 79 144/110 H 100 06/21/24 08:59 79 06/21/24 08:30 97.8 F 75 16 126/56 L 100 06/21/24 07:30 98.8 F 75 16 133/68 06/21/24 06:02 98.8 F 75 16 133/68 100 06/20/24 23:10 98.0 F 80 16 120/63 99 06/20/24 20:45 82 20 99 Room Air 21 06/20/24 20:00 Room Air 06/20/24 20:00 80 06/20/24 19:46 98.7 F 80 12 132/57 L 100 06/20/24 16:00 97.6 F 82 16 132/63 100 Intake/Output Intake/Output: Intake & Output 06/18/24 06/19/24 06/20/24 06/21/24 23:59 23:59 23:59 23:59 Intake Total 1290 2286 1618 540 Output Total 300 863 384 Balance 1290 1986 755 156 Meds/Results Medications: Active Medications Generic Name Dose Route Start Last Admin Trade Name Freq PRN Reason Stop Dose Admin Acetaminophen 650 mg 06/18/24 15:47 Acetaminophen 325 Mg Tablet PO Q4H PRN Mild Pain (1-3) or Fever Hydrocodone Bitart/Acetaminophen 1 tab 06/19/24 15:48 06/20/24 19:52 Hydrocodone/Acetaminophen (*Crx) 5-325 Mg Tablet PO 1 tab Q4H PRN Administration Pain Rated 4-6 Aspirin 81 mg 06/19/24 09:00 06/21/24 08:58 Aspirin 81 Mg Enteric Tablet BY MOUTH 81 mg DAILY CHAYO Administration Dextrose 12.5 gm 06/18/24 19:29 Dextrose 50% 25 Gm/50 Ml Syringe IV PUSH PRN PRN Hypoglycemia Protocol Diphenhydramine HCl 25 mg 06/20/24 02:59 06/20/24 03:09 Diphenhydramine Hcl Cap 25 Mg Capsule PO 25 mg Q6H PRN Administration Itching Epoetin Srinivas-epbx 10,000 units 06/20/24 09:00 06/20/24 12:03 Epoetin Srinivas-Epbx 10,000 Units/Ml Vial SUB-Q 10,000 units MOWEFR@09 CHAYO Administration Gabapentin 200 mg 06/18/24 19:35 06/21/24 12:08 Gabapentin 100 Mg Capsule PO 200 mg TID CHAYO Administration Glucagon 1 mg 06/18/24 19:29 Glucagon For Inj 1 Mg Vial IM PRN PRN Hypoglycemia Protocol Glucose 15 gm 06/18/24 19:29 Glucose Oral Gel 15 Gm Of Glucse In 37.5 Gm Tube PO PRN PRN Hypoglycemia Protocol Heparin Sodium (Porcine) 5,000 units 06/19/24 09:00 06/21/24 09:03 Heparin Sodium 5,000 Units/Ml Vial SUB-Q 5,000 units Q12HR CHAYO Administration Hydralazine HCl 100 mg 06/18/24 21:00 06/21/24 08:58 Hydralazine Hcl 50 Mg Tablet PO 100 mg Q12H CHAYO Administration Hydroxyzine HCl 25 mg 06/20/24 12:21 06/20/24 14:04 Hydroxyzine Hcl 25 Mg Tablet PO 25 mg Q6H PRN Administration Itching Dextrose 1,000 mls @ 100 mls/hr 06/18/24 19:29 Dextrose 5% 1,000 Ml IVPB PRN PRN Hypoglycemia Protocol Insulin Aspart 1 - 3 units 06/18/24 21:00 06/20/24 19:59 Insulin Aspart (*Bkc) 100 Units/Ml SUB-Q 1 units HS CHAYO Administration Protocol Insulin Aspart 3 - 6 units 06/19/24 08:00 06/21/24 12:05 Insulin Aspart (*Bkc) 100 Units/Ml SUB-Q Not Given [facility] Protocol Insulin Glargine 14 units 06/18/24 21:00 06/20/24 19:59 Insulin Glargine (*Bkc) 100 Units/Ml SUB-Q 14 units HS CHAYO Administration Labetalol HCl 200 mg 06/18/24 21:00 06/21/24 08:59 Labetalol Hcl 100 Mg Tablet PO 200 mg Q12H CHAYO Administration Lactulose 20 gm 06/20/24 12:27 Lactulose 20 Gm/30 Ml Udc PO Q6HR PRN constipation Nifedipine 60 mg 06/20/24 09:00 06/21/24 08:59 Nifedipine 30 Mg Tab.Er.24 PO 60 mg QAM CHAYO Administration Ondansetron HCl 4 mg 06/18/24 15:47 Ondansetron Inj 4 Mg/2 Ml Vial IV PUSH Q4H PRN Nausea Saccharomyces Boulardii 250 mg 06/20/24 13:00 06/21/24 12:08 Saccharomyces Boulardii 250 Mg Capsule PO Not Given TID CHAYO Sevelamer Carbonate 800 mg 06/19/24 08:00 06/21/24 12:08 Sevelamer Carbonate 800 Mg Tablet PO Not Given [facility] Vancomycin HCl 1 each 06/18/24 15:54 Vancomycin For Peritoneal Dialysis IVPB PRN PRN Vancomycin Protocol Radiology Results: ITS Impressions Abdomen/Pelvis CT 06/18/24 14:10 IMPRESSION: 1. No evidence of appendicitis, diverticulitis or intestinal obstruction. 2. Moderate ascites. 3. Atrophic kidneys. Dialysis catheter seen in the pelvis. 4. Edematous mesentery seen anteriorly. Clinical correlation advised Labs Labs: Laboratory Tests 06/21/24 05:16 06/21/24 05:16 Calcium 7.9 L Phosphorus 4.9 H Total Bilirubin 0.2 AST 23 ALT 19 Alkaline Phosphatase 184 H Total Protein 6.0 L Albumin 2.5 L Microbiology 06/18/24 16:47 Peritoneal Fluid Anaerobic Culture - Preliminary 06/18/24 16:47 Peritoneal Fluid Aerobic Culture - Preliminary Staphylococcus epidermidis 06/18/24 13:31 Abdominal Fluid Anaerobic Culture - Preliminary 06/18/24 13:31 Abdominal Fluid Aerobic Culture - Final
[2024-06-21 11:50] LABS: Glucose Point of Care 158 mg/dl (65-105)
--- NOTE | 2024-06-21 14:05 | P.DS_ITS ---
DS: Admitting Diagnosis Discharge Date 06/21 Admitting Diagnosis abd pain DS: Discharge Diagnosis Discharge Diagnosis (1) Spontaneous bacterial peritonitis: Code(s): K65.2 - Spontaneous bacterial peritonitis Status: Acute Assessment and Plan: patient presented to emergency department with complaints of abdominal pain for her peritoneal dialysis nurse she had cloudy peritoneal fluid and suggested coming to the emergency department she has been afebrile with normal WBC and Peritoneal fluid was cloudy per dialysis nurse and she has been started on empiric antibiotics to cover for probable spontaneous bacterial peritonitis. 7063 nucleated cells were seen on fluid cell count though Gram stain is pending at this time. She has still not had a bowel movement though there was no evidence of ileus on imaging and she has bowel sounds. patient treated for bacterial peritonitis 02/2024 which was positive for staphylococcus epidermis. Patient reports straining for BM unsure the last one she has had. * Nephrology following * continue Vancomycin and cefepime pending cultures * daily weights * serial CMP monitor for signs of sepsis * pain management -on cefepime and vanc will add probiotics -trend WBC, VS/T. (2) Constipation: Code(s): K59.00 - Constipation, unspecified Status: Acute Assessment and Plan: Patient with reports of constipation no obstruction or fecal stasis on CT abdomen * given bisacodyl suppository overnight * Lactulose Q6hr until BM * gave Lactulose Enema x 1 having BMs will change lactulose to prn (3) End-stage renal disease on peritoneal dialysis: Code(s): N18.6 - End stage renal disease; Z99.2 - Dependence on renal dialysis Status: Chronic Assessment and Plan: Patient currently on peritoneal dialysis * nephrology consulted * Avoid nephrotoxic drugs. * Monitor antihypertensive drug therapy. * Avoid NSAIDs. * Routine CMP monitoring GFR. * Monitor electrolytes especially potassium. * Antibiotic doses depending on creatinine clearance. 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 HS * sliding scale insulin * resume patient's home long-acting 14 Units * Diabetic/Renal diet * Watch for hypoglycemia/hypoglycemic protocol ordered BS 140-220's (5) Hypertension: Code(s): I10 - Essential (primary) hypertension Status: Chronic Assessment and Plan: patient has been running hypertensive since admission however she did report she had not taken her daily hyperintense medications * continue with labetalol, hydralazine, and amlodipine * monitor BP per unit protocol - amlodipine, hydralazine, nifedipine, (added this addmission), labetalol 103-135/65's Plan Code status: Full code per patient DVT prophylaxis: Heparin Stress ulcer prophylaxis: NA PT/OT notes: Ambulatory Disposition: patient continues admission to the medical unit for further evaluation and treatment of possible bacterial peritonitis continue with peritoneal dialysis nephrology following further recommendations. Patient is ambulatory on own and plan will be to return home at discharge. DS: Summary Hospital Course Hospital Course: 44 y.o female (noncompliant with her diet) presented to emergency department with complaints of abdominal pain for her peritoneal dialysis nurse she had cloudy peritoneal fluid and suggested coming to the emergency department she has been afebrile with normal WBC and Peritoneal fluid was cloudy per dialysis nurse and she has been started on empiric antibiotics to cover for probable spontaneous bacterial peritonitis. 7063 nucleated cells were seen on fluid cell count though Gram stain is pending at this time. patient treated for bacterial peritonitis 02/2024 which was positive for staphylococcus epidermis. * continue Vancomycin and cefepime pending cultures- 06/21 cefepime was stopped as culture grew staph epidermidis-sensitivities are not yet available * Had lactulose ordered and had several sussessful BM's nephrology added nifedepine daily- will continue it-rx send - 06/21 pt is tolerating dialysis well. no issues overnight. Nephrology following. OK to discharge per nephrology standpoint. when i stopped by her room, pt was sleeping. RN later called and states that pt is having issues with her vision and wants to leave. When i went to examine her, she was crying that hospital gave her staph infection abd no one explains any thing to her. I went over everything with her yesterday and answered questions to her satisfactions. Today, i explained to her that so far, staphylococcus epidermis is growing in her peritoneal fluid which is consistent with the findings in february. I asked her to stay overnight to get sensitivities back so we can prescribe correct antibiotics. If she choses to leave AMA, i would prob send her with doxy- she would need 21 days of therapy. All this seems to overwhelm her and she kept on crying out loud. Unsure if she heard me or not. I was not able to get more information about her vision complains. She keep saying that all of these meds made her have issues with her eyes but i was not able to get clear explanation about her symptoms. Pt was encouraged to stay and get her vision evaluated and wait for sensitives to chose the correct antibiotic- but she decided to leave. Will send rx fr doxy 21 days and if sensitivities show anything different- will rec out to pt and change tx. Status at Discharge Functional status at discharge: independent ambulation Overall status at discharge: patient is progressing back to baseline Time Spent with Patient Time attestation: Total time spent providing and/or coordinating discharge services: Time spent: Greater than 30 minutes Exam Narrative: General: Nontoxic-appearing female sitting up in bed in no acute distress. Weight: 90.7 kg. BMI: 30.5. HEENT: PERRL, EOMI. Sclera anicteric. Oral mucosa moist. Oropharynx clear. Neck: Supple. Respiratory: Lungs are clear to auscultation bilaterally. Cardiovascular: Regular rate and rhythm with S1-S2. Soft murmur the left sternal border. Gastrointestinal: Abdomen is soft and nondistended with positive bowel sounds. She is tender to palpation throughout the periumbilical region without guarding or rebound tenderness. Positive bowel sounds. Peritoneal dialysis catheter dressing is clean, dry, and intact. Peritoneal fluid was reportedly cloudy. Skin: Warm and dry. Extremities: No cyanosis, clubbing, or edema. Radial and pedal pulses intact. Neurological: Alert. Cranial nerves 2-12 are grossly intact. No gross focal deficits to casual conversation. Psychiatric: Pleasant and cooperative with normal mood and affect. Judgment and insight intact. Const: General: comfortable and no acute distress Other: Pleasant female HENMT: Face/Nose/Sinus: Normal nares present Mouth: Yes moist mucous memb ranes Eyes: General: appearance normal, both eyes and all related structures Sclera: sclerae normal Pupils: Equal, round and reactive pupils present Neck: Neck: supple and no JVD Resp: Effort & Inspection: normal respiratory effort Auscultation: clear to auscultation bilaterally Cardio: Rate: regular rate Rhythm: regular rhythm GI: Other: Abdomen is soft and nondistended with positive bowel sounds. She is tender to palpation throughout the periumbilical region without guarding or rebound tenderness. Positive bowel sounds. Peritoneal dialysis catheter dressing is clean, dry, and intact. Peritoneal fluid was reportedly cloudy. Skin: General skin exam: normal color and no rashes or lesions noted Wounds: no wounds Neuro: General: gait normal Cranial nerves: Yes Equal, round and reactive pupils present Speech: normal speech Motor exam (neuro): 5/5 motor strength present throughout Sensory Exam: normal sensation Extrem: General: normal to inspection Psych: Mental Status: mental status grossly normal Affect: normal affect DS: Data Data Completed and Pending Labs on day of discharge: Labs from last 24 hours 06/21/24 06/21/24 06/21/24 11:43 07:42 05:16 WBC 9.3 RBC 3.31 L Hgb 8.5 L Hct 28.7 L MCV 86.7 MCH 25.7 L MCHC 29.6 L RDW 14.6 H Plt Count 327 MPV 9.9 Sodium 134 L Potassium 3.3 L Chloride 99 Carbon Dioxide 29 Anion Gap 6 BUN 34 H Creatinine 10.05 H Estim Creat Clear Calc 8 Estimated GFR 4 L Glucose 195 H POC Capillary Glucose 158 H 130 H Calcium 7.9 L Phosphorus 4.9 H Total Bilirubin 0.2 AST 23 ALT 19 Alkaline Phosphatase 184 H Total Protein 6.0 L Albumin 2.5 L Random Vancomycin 06/20/24 06/20/24 06/20/24 23:13 19:55 16:53 WBC RBC Hgb Hct MCV MCH MCHC RDW Plt Count MPV Sodium Potassium Chloride Carbon Dioxide Anion Gap BUN Creatinine Estim Creat Clear Calc Estimated GFR Glucose POC Capillary Glucose 241 H 206 H Calcium Phosphorus Total Bilirubin AST ALT Alkaline Phosphatase Total Protein Albumin Random Vancomycin 20.5 H 06/20/24 16:11 WBC RBC Hgb Hct MCV MCH MCHC RDW Plt Count MPV Sodium Potassium Chloride Carbon Dioxide Anion Gap BUN Creatinine Estim Creat Clear Calc Estimated GFR Glucose POC Capillary Glucose 143 H Calcium Phosphorus Total Bilirubin AST ALT Alkaline Phosphatase Total Protein Albumin Random Vancomycin Preliminary micro results at discharge 06/18/24 16:47 Anaerobic Culture - Preliminary Peritoneal Fluid Aerobic Culture - Preliminary Staphylococcus epidermidis 06/18/24 13:31 Anaerobic Culture - Preliminary Abdominal Fluid 06/19/24 04:51 Blood Culture - Preliminary Blood 06/18/24 19:43 Blood Culture - Preliminary Blood Discharge Plan Discharge Attending physician on discharge: Lena Yu Consulting providers: Umang Stacy; Cynthia Guallpa Discharging Clinician: Kirsty Tovar Patient Disposition: Left Against Medical Advice Activity: may shower Diet: renal Discharge Instructions: you were admitted for abdominal pain. Culture from your peritoneal dialysis grew staphylococcus epidermis- renan same bacteria you had in february for which you were admitted and treated. You received Vancomycin and cefepime initially and on 06/21 cefepime was stopped based on culture results. We still do not have sensitives -which we do need to ensure you are on correct antibiotics. You chose to leave against medical advise- i tried to talk to you as well as your nurse about staying for further antibiotics and to evaluate your vision complains, but you chose to leave. I will send you home with doxycycline- please take it for 21 days. If you culture sensitivities show that bacteria is resistant to doxy- i will call you and let you know. Please donot stop taking antibotics on your own. Please avoid milk and dairy products and follow up with nephrology. Nephrology added another med for your BP- nifedepine-take it daily and monitor your BP in am. Patient Language: Ukrainian Discharge Medications: New nifedipine [Procardia XL] 30 mg Tablet Extended Release 24hr 60 mg PO QAM Qty: 90 0RF doxycycline monohydrate 100 mg capsule 100 mg PO BID Qty: 42 0RF Continued gabapentin 100 mg capsule 200 mg PO TID Qty: 540 1RF (DME) blood-glucose meter [Blood Glucose Monitoring] Kit See Rx Instructions .ROUTE .MEDSUPPLY Qty: 1 0RF Rx Instructions: once (DME) Blood Glucose Test Strip See Rx Instructions .ROUTE .MEDSUPPLY Qty: 100 1RF Rx Instructions: bid (DME) lancets 31 gauge misc See Rx Instructions .ROUTE .MEDSUPPLY Qty: 100 1RF Rx Instructions: bid insulin glargine [Lantus Solostar U-100 Insulin] 100 unit/mL (3 mL) insulin pen 14 unit subcut HS Qty: 15 3RF (DME) pen needle, diabetic 32 gauge x 5/32 needle Qty: 1 3RF Rx Instructions: May substitute to meet patient needs. Use As Directed (DME) FreeStyle Alexandro 3 Plus Sensor Device See Rx Instructions .Route Qty: 2 3RF Rx Instructions: Check glucose continuous As directed acetaminophen 500 mg tablet 1,000 mg PO TID PRN (Reason: tessie) 7 Days Qty: 180 1RF amlodipine 10 mg tablet 10 mg PO DAILY Qty: 90 1RF labetalol 200 mg tablet 200 mg PO Q12H sevelamer HCl 800 mg tablet 800 mg PO TID Rx Instructions: must administer with a meal/food hydralazine 100 mg tablet 100 mg PO Q12H Patient Comments: pt stated and verified with picture of medication bottle aspirin 81 mg tablet,delayed release (DR/EC) See Rx Instructions .ROUTE .COMPLEX Qty: 90 3RF Dose Instruction: TAKE 1 TABLET BY MOUTH EVERY DAY Rx Instructions: TAKE 1 TABLET BY MOUTH EVERY DAY Date of admission: 06/19/24 14:28 Primary Care Provider: Sulema Lennon Admitting Provider: Lena Yu Attending physician on admission: Lena Yu Condition: Stable Quality VTE Prophylaxis VTE prophylaxis: pharmacologic ordered
--- NOTE | 2024-06-21 14:27 | PC.NURSE ---
Patient notified of risks of leaving AMA. Kirsty Tovar APRN notified. Follow up instructions given to patient. Patient signed AMA form.
--- NOTE | 2024-06-24 07:28 | PC.NURSE ---
Peritoneal fluid organism susceptible to Doxycycline.
== END 2024-06-21 14:29 | disposition short-term general hospital (02) | DRG 371 ==
LOC: ANHED 16:55 → ANH2MED 16:57
PROVIDERS: Nurse Practitioner Family; Physician Assistant; Admitting Provider Hospitalist; Emergency Provider Student in an Organized Health Care Education/Training Program; PCP Nurse Practitioner Family; Visit Provider Nurse Practitioner
DX: K65.2 Spontaneous bacterial peritonitis (principal); N18.6 End stage renal disease; I12.0 Hypertensive chronic kidney disease with stage 5 chronic kidney disease or end stage renal disease; Z99.2 Dependence on renal dialysis; D63.1 Anemia in chronic kidney disease; E11.42 Type 2 diabetes mellitus with diabetic polyneuropathy; E11.22 Type 2 diabetes mellitus with diabetic chronic kidney disease; E66.01 Morbid (severe) obesity due to excess calories; K59.00 Constipation, unspecified; K21.9 Gastro-esophageal reflux disease without esophagitis; Z90.49 Acquired absence of other specified parts of digestive tract; Z68.30 Body mass index [BMI] 30.0-30.9, adult; Z86.73 Personal history of transient ischemic attack (TIA), and cerebral infarction without residual deficits; Z79.4 Long term (current) use of insulin
CPT/HCPCS: 36415; 74176; 80048; 80053; 80202; 82948; 83036; 83605; 83690; 83735; 84100; 84703; 85025; 85027; 87040; 87070; 87075; 87181; 87205; 87641; 89051; 90945; 96361; 96365; 96366; 96367; 96375; 96376; 99285; A9270; G0378; J0692; J1171; J1644; J1815; J2270; J2405; J3370; J7120; Q5105

== ENCOUNTER 2024-11-07 04:09 | Observation (INO) | payer MEDICARE, MEDICAID, SELFPAY ==
[2024-11-07] VITALS (14 sets, daily range): BP systolic 164–190; BP diastolic 70–85; PULSE 75–88; RESP 14–19; TEMP 35.8–36.6; O2SAT 97–100; BMI 37.1
--- NOTE | ~2024-11-07 | XR_ITS ---
EXAM/ PROCEDURE: XR hip RT 2V w AP pelvis - 11/07/2024 4:39 CDT HISTORY: 44 years old Female with r hip pain COMPARISON: None available TECHNIQUE: Three view(s) FINDINGS/ IMPRESSION: There are no fractures or dislocations.Joint spaces are within normal limits. Reviewed, dictated and finalized at location N.
--- NOTE | ~2024-11-07 | US_ITS ---
EXAMINATION: US abdomen limited DATE: 11/08/2024 12:36 INDICATION: Right upper quadrant abdominal pain. Abnormal liver function tests. TECHNIQUE: Multiple grayscale and Doppler ultrasound images of the abdomen were obtained. COMPARISON: CT abdomen and pelvis 11/07/2024 FINDINGS: The visualized portions of the head and body of the pancreas are normal. The liver is normal without focal lesion. There is normal flow in main portal vein. The gallbladder is absent. The common duct is normal and measures 7 mm. There is a small right pleural effusion. There is a small volume of ascites. IMPRESSION: 1. Small right pleural effusion. 2. Small volume of ascites. Reviewed, dictated and finalized at location E.
--- NOTE | ~2024-11-07 | CT_ITS ---
EXAMINATION: CT abdomen pelvis wo con DATE: 11/07/2024 06:28 INDICATION: Right lower quadrant abdominal and flank pain. TECHNIQUE: Computed tomography (CT) of the abdomen and pelvis was performed with 100 mL Omnipaque-350 intravenous contrast. Automated exposure control and iterative reconstruction technique were employed. The dose-length product was 422.91 mGy-cm. COMPARISON: 06/18/2024 FINDINGS: Small bilateral pleural effusions with mild discoid atelectasis bilateral lung bases. Heart size is normal. Atherosclerotic coronary artery calcific location. Distal tip of a likely central venous catheter in the right atrium. Cholecystectomy clips in the gallbladder fossa. Liver, spleen, bilateral adrenal glands are normal. Nonspecific haziness to the fat surrounding the head of pancreas extending into the root of mesentery. Mild to moderate bilateral renal atrophy. 1.4 cm cyst at the upper pole of the right kidney. There are scattered vascular calcification of the smaller arteries in the abdomen and pelvis including at the bilateral renal sanam. No evident urolithiasis or hydronephrosis. Decompressed bladder, anteverted uterus and bilateral adnexa are unremarkable. There is suggestion of some edematous wall thickening of the small bowel and the left abdomen suspicious for an enteritis. No dilated bowel to suggest obstruction. Small amount of ascites in the pelvis. There is a new 5.3 x 3.2 cm mixed attenuation mass versus complex fluid collection in the subcutaneous fat slightly inferior and to the right of the umbilicus study most suspicious for a hematoma along the course of the prior peritoneal dialysis catheter present on the prior study but not present in the current. Correlate with clinical history. No intra-abdominal abscess or free intraperitoneal gas. No pathologically enlarged abdominal or pelvic lymphadenopathy. Mild lumbar dextrocurvature.. IMPRESSION: 1. There appears be edematous wall thickening of multiple loops of small bowel in the left upper quadrant suspicious for enteritis which could be infectious, inflammatory or ischemic in etiology. 2. Nonspecific haziness to the fat surrounding the pancreas extending to the mesentery which could represent simple edema such as seen with heart failure, renal failure or other generalized edema forming states. Differential would also however include acute pancreatitis and would correlate with lipase levels. 3. Small bilateral pleural effusions and small amount of nonspecific ascites. 4. New 5.3 x 3.2 cm heterogeneous attenuation mass versus complex fluid collection in the anterior right abdominal wall along the tract of a prior dialysis catheter most suspicious for a small hematoma. Reviewed, dictated and finalized at location A. IMPRESSION: 1. There appears be edematous wall thickening of multiple loops of small bowel in the left upper quadrant suspicious for enteritis which could be infectious, inflammatory or ischemic in etiology. 2. Nonspecific haziness to the fat surrounding the pancreas extending to the me sentery which could represent simple edema such as seen with heart failure, kiley al failure or other generalized edema forming states. Differential would also h owever include acute pancreatitis and would correlate with lipase levels. 3. Small bilateral pleural effusions and small amount of nonspecific ascites. 4. New 5.3 x 3.2 cm heterogeneous attenuation mass versus complex fluid collect ion in the anterior right abdominal wall along the tract of a prior dialysis ca theter most suspicious for a small hematoma.
--- NOTE | ~2024-11-07 | XR_ITS ---
EXAMINATION: XR chest 1V portable DATE: 11/08/2024 06:53 INDICATION: Shortness of breath TECHNIQUE: frontal view of the chest was obtained. COMPARISON: Chest radiograph dated 05/05/2024 FINDINGS: Opacities in the bilateral lower lung zones. Blunting at the costophrenic and cardiophrenic angles consistent with small bilateral pleural effusions. Pulmonary vascular congestion and mild bronchial wall thickening the bilateral mid and lower lung zones. No pneumothorax. The cardiomediastinal silhouette is normal. Large-bore likely tunneled dual-lumen right internal jugular central venous catheter with distal tip at the superior cavoatrial junction. IMPRESSION: 1. Mild opacities at the bilateral lower lung zones which could represent atelectasis and/or pneumonia with small bilateral pleural effusions. 2. Pulmonary vascular congestion with mild bronchial wall thickening in the mid to lower lung zones which could be seen with mild pulmonary edema, bronchitis or reactive airway disease/asthma. Reviewed, dictated and finalized at location A. IMPRESSION: 1. Mild opacities at the bilateral lower lung zones which could represent atele ctasis and/or pneumonia with small bilateral pleural effusions. 2. Pulmonary vascular congestion with mild bronchial wall thickening in the mid to lower lung zones which could be seen with mild pulmonary edema, bronchitis or reactive airway disease/asthma.
--- NOTE | ~2024-11-07 | CT_ITS ---
EXAM/PROCEDURE: CT femur RT w con 11/07/2024 9:50 CDT HISTORY: prox thigh pain, rhabdo COMPARISON: None available TECHNIQUE: Axial CT of the right high was obtained. Coronal and sagittal reformats were obtained from axial data set. FINDINGS: There are no fractures or dislocations. Joint spaces are within normal limits. Joint effusion seen. Mild diffuse skin thickening and soft tissue stranding of the subcutaneous soft tissue around the right knee. Findings are nonspecific and can be seen in cellulitis. Atherosclerotic calcifications are seen. IMPRESSION: Mild diffuse skin thickening and soft tissue stranding of the subcutaneous soft tissue around the right knee. Findings are nonspecific and can be seen in cellulitis. Clinical correlation is recommended. Reviewed, dictated and finalized at location N. IMPRESSION: Mild diffuse skin thickening and soft tissue stranding of the subcutaneous soft tissue around the right knee. Findings are nonspecific and can be seen in cell ulitis. Clinical correlation is recommended.
--- NOTE | 2024-11-07 04:17 | PC.NURSE ---
fall pad and air mattress in place
--- OUTSIDE RECORDS SUMMARY | 2024-11-07 04:20 | XMS_ITS ---
Author Organization [facility] Address [address] [place] [address] Care Team Providers Care Back Feeder [employer] Layup Line Name Role Phone Almita Rizzo RN Unavailable [phone] Beth Fernandez MD Unavailable [phone] Maday Oviedo MD Unavailable [phone] Tomasz Scott DO Unavailable [phone] Meir Nazario MD Unavailable [phone] Sulema Lennon NP Primary Care Provider [phone] Dialysis Access Sites Type Status Location Placement Date Removal Da te AV graft Active Left Upper Arm - Anterior 05/08/2022 Peritoneal Dialysis Catheter Other (Comment) Right lower abdomen Active Right Abdomen (side) - Lower 03/14/2021 Procedures Procedure Name Priority Date/Time Associated Diagnosis Comments HLA VIRTUAL CROSSMATCH RECIPIENT REPORT 10/19/2024 1:10 PM CDT XR KNEE RIGHT 1 OR 2 VIEWS ED 10/06/2024 3:07 PM CDT XR FEMUR RIGHT 2 OR MORE VIEWS ED 10/06/2024 3:07 PM CDT EGFR STAT 10/06/2024 2:27 PM CDT DIFFERENTIAL AUTO STAT 10/06/2024 2:2 7 PM CDT COMPREHENSIVE METABOLIC PANEL STAT 10/06/2024 2:27 PM CDT CBC WITH AUTO DIFFERENTIAL STAT 10/06/2024 2:27 PM CDT HLA CROSSMATCH REPORT 09/26/2024 10:00 AM CDT HLA CROSSMATCH, ALLO Routine 09/26/2024 10:00 AM CDT Awaiting organ transplant status HLA ANTIBODY SCREEN - SAB (CLASS I AND CLASS II) Routine 09/26/2024 10:00 AM CDT Pre-kidney transplant, patient on transplant list ESRD (end stage renal disease) HLA ANTIBODY SCREEN BY PRA OR SAB PER SCHEDULE (CLASS I AND CLASS II) Routine 09/26/2024 10:00 AM CDT Pre-kidney transplant, patient on transplant list ESRD (end stage renal disease) POCT GLUCOSE DEVICE Routine 09/15/2024 1 1:26 AM CDT POCT GLUCOSE DEVICE Routine 09/15/2024 7 :41 AM CDT EGFR Routine 09/15/2024 5:03 AM CDT DIFFERENTIAL AUTO Routine 09/15/2024 5:0 3 AM CDT CBC WITH AUTO DIFFERENTIAL Routine 09/15/2024 5:03 AM CDT BASIC METABOLIC PANEL Routine 09/15/2024 5:03 AM CDT MAGNESIUM Routine 09/15/2024 5:03 AM CDT PHOSPHORUS Routine 09/15/2024 5:03 AM CDT CRP (ACUTE PHASE) Routine 09/15/2024 5:0 3 AM CDT ERYTHROCYTE SEDIMENTATION RATE Routine 09/15/2024 5:03 AM CDT POCT GLUCOSE DEVICE Routine 09/14/2024 1 1:34 PM CDT POCT GLUCOSE DEVICE Routine 09/14/2024 7 :36 PM CDT POCT GLUCOSE DEVICE Routine 09/14/2024 4 :02 PM CDT POCT GLUCOSE DEVICE Routine 09/14/2024 1 1:36 AM CDT CONTINUOUS CYCLIC PERITONEAL DIALYSIS (CCPD) Routine 09/14/2024 9:27 AM CDT POCT GLUCOSE DEVICE Routine 09/14/2024 8 :27 AM CDT HEPATITIS B SURFACE ANTIBODY (IMMUNE STATUS) STAT 09/14/2024 7:15 AM CDT HEPATITIS B SURFACE ANTIGEN STAT 09/14/2024 7:15 AM CDT HEMOGLOBIN A1C Routine 09/14/2024 5:21 AM CDT EGFR Routine 09/14/2024 5:21 AM CDT MAGNESIUM Routine 09/14/2024 5:21 AM CDT PHOSPHORUS Routine 09/14/2024 5:21 AM CDT VANCOMYCIN LEVEL RANDOM Routine 09/14/2024 5:21 AM CDT CBC WITHOUT DIFFERENTIAL Routine 09/14/2024 5:21 AM CDT BASIC METABOLIC PANEL Routine 09/14/2024 5:[address] HAND RIGHT WO CONTRAST IP Routine 09/14/2024 2:34 AM CDT POCT GLUCOSE DEVICE Routine 09/14/2024 1 :31 AM CDT BLOOD CULTURE STAT 09/13/2024 11:28 PM CDT BLOOD CULTURE STAT 09/13/2024 11:28 PM CDT HCG, BLOOD, QUANTITATIVE Routine 09/13/2024 10:46 PM CDT POCT GLUCOSE DEVICE Routine 09/13/2024 9 :24 PM CDT [place] CRITICAL CARE ILL/INJURED PATIENT INIT 30-74 MIN Routine 09/13/2024 6:54 PM CDT APTT STAT 09/13/2024 3:54 PM CDT PROTIME-INR STAT 09/13/2024 3:54 PM CDT TROPONIN T HIGH-SENSITIVITY 4-HR Timed 09/13/2024 3:54 PM CDT SEPSIS LACTATE WITH REFLEX STAT 09/13/2024 1:48 PM CDT TROPONIN T HIGH-SENSITIVITY 2-HOUR Timed 09/13/2024 1:48 PM CDT INFLUENZA A/B, RSV, AND COVID-19 PCR STAT 09/13/2024 1:48 PM CDT XR HAND RIGHT 3 OR MORE VIEWS ED 09/13/2024 12:24 PM CDT XR CHEST 1 VIEW ED 09/13/2024 12:24 PM CDT ECG 12-LEAD STAT 09/13/2024 11:59 AM CDT PRO B-TYPE NATRIURETIC PEPTIDE STAT 09/13/2024 11:50 AM CDT EGFR STAT 09/13/2024 11:50 AM CDT DIFFERENTIAL AUTO STAT 09/13/2024 11: 50 AM CDT TROPONIN T HIGH-SENSITIVITY SERIES (BASELINE, 2HR, 4HR, 6HR) STAT 09/13/2024 11:50 AM CDT CBC WITH AUTO DIFFERENTIAL STAT 09/13/2024 11:50 AM CDT COMPREHENSIVE METABOLIC PANEL STAT 09/13/2024 11:50 AM CDT HLA VIRTUAL CROSSMATCH RECIPIENT REPORT 09/12/2024 2:08 AM CDT HLA ANTIBODY SCREEN BY PRA OR SAB PER SCHEDULE (CLASS I AND CLASS II) Routine 08/23/2024 10:00 AM CDT Pre-kidney transplant, patient on transplant list ESRD (end stage renal disease) (HCC) LIPID PANEL STAT 06/21/2024 7:20 PM CDT HEPATITIS C ANTIBODY Routine 02/16/2024 11:34 AM 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 MANAGER Pre-kidney transplant, patient on transplant list ESRD (end stage renal disease) (HCC) COLONOSCOPY 07/21/2023 10:23 AM CDT HM MAMMOGRAPHY Routine 06/04/2021 from Last 3 Months or Most Recently Relevant to Health Maintenance Allergies Active Allergy Reactions Criticality Noted Date Comments Ibuprofen Stomach upset Low 04/20/2017 Metronidazole Itching,Rash,Hives Medium 04/21/2017 Omeprazole Rash Medium 04/21/2017 Medications insulin glargine (LANTUS) 100 unit/mL vial for injection Inject 10 Units under the skin nightly Active aspirin 81 mg enteric coated tablet Take 1 tablet (81 mg total) by mouth every morning Picking up all new prescriptions today-she will pick this up later today 05/06. Active lactulose solution 10 gram/15mL daily as needed (CONSTIPATION) Active atorvastatin (LIPITOR) 80 mg tablet Take 1 tablet (80 mg total) by mouth daily 06/12/19 23 Active calcium acetate,phosphat bind, (PHOSLO) 667 mg capsule TAKE 2 CAPSULES BY MOUTH WITH EACH MEAL Active gabapentin (NEURONTIN) 100 mg capsule Take 2 capsules (200 mg total) by mouth 3 (three) times a day 90 capsule 12/01/19 24 2024 Active rOPINIRole (REQUIP) 0.5 mg tablet Take 1 tablet (0.5 mg total) by mouth 3 (three) times a day as needed (restless legs) for up to 30 doses 30 tablet 12/01/19 24 Active albuterol HFA (PROVENTIL HFA,VENTOLIN HFA,PROAIR HFA) 90 mcg/actuation inhaler Inhale 2 puffs every 4 (four) hours as needed for wheezing 6.7 g 01/08/20 24 Active benzonatate (TESSALON) 100 mg capsule Take 1 capsule (100 mg total) by mouth 3 (three) times a day as needed for cough 15 capsule 01/08/20 24 Active lidocaine (LIDODERM) 5 % Place 1 [...] Active polyethylene glycol (MIRALAX) 17 gram/dose bulk powder Take 17 g by mouth daily 510 g 06/15/19 25 Active amLODIPine (NORVASC) 10 mg tablet Take 1 tablet (10 mg total) by mouth daily 30 tablet 06/25/19 25 Active ketorolac (ACULAR) 0.5 % ophthalmic solution Administer 1 drop into both eyes 4 (four) times a day 3 mL 06/24/19 25 Active prednisoLONE acetate (PRED FORTE) 1 % ophthalmic suspension Administer 1 drop into both eyes 4 (four) times a day 06/24/19 25 Active labetaloL (NORMODYNE,TRANDATE) 300 mg tablet Take 1 tablet (300 mg total) by mouth 2 (two) times a day 60 tablet 09/16/19 25 2025 Active losartan (COZAAR) 100 mg tablet Take 1 tablet (100 mg total) by mouth daily 30 tablet 09/17/19 25 2025 Active acetaminophen (TYLENOL) 325 mg tabletIndications:Fe ida,Pain Take 2 tablets (650 mg total) by mouth every 6 (six) hours as needed for pain 30 tablet 07/24/20 25 Active doxazosin (CARDURA) 2 mg tablet Take 1 tablet (2 mg total) by mouth nightly 30 tablet 09/16/19 25 2025 Active sevelamer (RENVELA) 800 mg tabletIndications:Re nal Osteodystrophy with Hyperphosphatemia Take 1 tablet (800 mg total) by mouth 3 (three) times a day with meals 90 tablet 09/16/19 25 2025 Active HYDROcodone-acetamin ophen (NORCO) 5-325 mg per tabletIndications:Pa in Take 1 tablet by mouth every 6 (six) hours as needed for pain 10 tablet 10/07/19 25 Active Active Problems Problem Noted Date Diagnosed Date Hypertensive urgency 09/13/2024 Encounter for peritoneal dialysis 06/21/2024 Screening for colorectal cancer 07/08/2023 Pre-transplant evaluation for kidney transplant 07/08/2023 Pain of left upper extremity 06/24/2023 Encounter for surgical after care following surgery of circulatory system 07/04/2022 Ovarian mass 04/10/2022 Overview (04/10/2022): Added automatically from request for surgery [id number] Hypertension 2021 ESRD (end stage renal disease) on dialysis 03/05 Diabetic retinopathy associa graeme with type 2 diabetes mellitus 06/12/2015 Hyperlipidemia 06/29/2014 Type 2 diabetes mellitus 09/17/2012 Immunizations Immunization Administration Dates Next Due Hep B Vaccine 2023,10/06/2022,04/18/2021 Influenza, Mdck, Trivalent, Contains Preservative (MDV) 11/27/2023 Influenza, Quadrivalent, Spl it, Intramuscular 02/03/2023,12/27/2021 PPD TEST 09/26/2024,05/25/2023,07/30/2022 Pneumococcal Conjugate 7-Valent 03/03/2018 Pneumococcal Conjugate PCV 13 04/18/2021 Pneumococcal Conjugate Pcv20 2023 Pneumococcal Polysaccharide PPV23 07/09/2017 Pneumococcal, Unspecified 04/18/2021 Tdap 07/09/2017 Social History Tobacco Use Types Packs/Day Years Used Date Smoking Tobacco: Never Passive Smoke Exposure: Past Smokeless Tobacco: Never Tobacco Cessation:Counseling Given: Not Answered [facility] Utilities Answer Date Recorded In the past 12 months has th e electric, gas, oil, or water company threatened to shut off services in your home? No 09/14/2024 Social Connection and Isolation Panel Answer Date Recorded In a typical week, how many times do you talk on the phone with family, friends, or neighbors? More than three times a week 09/14/2024 How often do you get togethe r with friends or relatives? More than three times a week 09/14/2024 How often do you attend chur ch or taoist services? More than 4 times per year 09/14/2024 Do you belong to any clubs o r organizations such as judaism groups, unions, fraternal or athletic groups, or school groups? Yes 09/14/2024 How often do you attend meet ings of the clubs or organizations you belong to? More than 4 times per year 09/14/2024 Are you , , di vorced, , never , or living with a partner? Never 09/14/2024 AUDIT-C Answer Date Recorded Q1: How often do you have a drink containing alcohol? Never 07/21/2023 Q2: How many drinks containi ng alcohol do you have on a typical day when you are drinking? Patient does not drink Q3: How often do you have si x or more drinks on one occasion? Never 07/21/2023 Overall Financial Resource Strain (CARDIA) Answe r Date Recorded How hard is it for you to pa y for the very basics like food, housing, medical care, and heating? Not very hard 09/14/2024 Hunger Vital Sign Answer Date Recorded Within the past 12 months, y ou worried that your food would run out before you got the money to buy more. Never true 09/15/19 25 Within the past 12 months, t he food you bought just didn't last and you didn't have money to get more. Never true 09/14/2024 PRAPARE - Transportation Answer Date Re corded In the past 12 months, has l ack of transportation kept you from medical appointments or from getting medications? No 08/24 In the past 12 months, has l ack of transportation kept you from meetings, work, or from getting things needed for daily living? No 09/14/2024 Housing Stability Vital Sign Answer Pito e Recorded In the last 12 months, was t here a time when you were not able to pay the mortgage or rent on time? No 09/14/2024 In the past 12 months, how m any times have you moved where you were living? 0 09/14/2024 At any time in the past 12 m [facility], were you homeless or living in a halfway (including now)? No 09/14/2024 Personal Safety Answer Date Recorded Have you ever been in or are you currently in a harmful physical or emotional relationship or is someone making you feel afraid or unsafe? 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 MANAGER Gender Identity Not on file Sexual Orientation Not on file Last Filed Vital Signs Vital Sign Reading Time Taken Comments Blood Pressure 178/108 10/06/2024 9:13 PM CDT Pulse 63 10/06/2024 9:13 PM CDT Temperature 36.8 C (98.2 F) 10/06/2024 1:36 PM CDT Respiratory Rate 14 10/06/2024 8:48 PM CDT Oxygen Saturation 100% 10/06/2024 8:48 PM CDT Inhaled Oxygen Concentration - - Weight 96.4 kg (212 lb 8 oz) 09/13/2024 9:09 PM CDT Height 160 cm (5' 3) 09/13/2024 9:09 PM CDT Body Mass Index 37.64 09/13/2024 9:09 PM CDT Results * HLA Virtual Crossmatch Recipient Report (10/19/2024 1:10 PM CDT) us Sherwin Bhat MD LAB BLOOD ORDERABLES F inal Result * XR Femur Right 2 or More Views (10/06/2024 3:07 PM CDT) Anatomical Region Laterality Modality Lower Extremities, Thigh, Femur Right Computed Radiography 10/06/2024 3:47 PM CDT Narrative 10/06/2024 3:49 PM CDT EXAM DESCRIPTION: XR KNEE RIGHT 1 OR 2 VIEWS; XR FEMUR RIGHT 2 OR MORE VIEWS REASON FOR STUDY: fall States on Thursday to tripping and falling, was unable to stop herself r/t right hand pain. Admits to hurting right knee and has had right sided groin pain that has gotten increasingly worse since fall. Denies LOC, head and neck pain. TECHNIQUE: 2 radiographic view(s) of the right knee . 2 radiographic views of the right femur. COMPARISON: None FINDINGS: No acute fracture or malalignment. There is mild tricompartmental arthritis of the knee. Mild osteoarthritis of the right hip. No significant knee joint effusion. Vascular calcifications are noted. IMPRESSION: No acute osseous abnormality. Mild osteoarthritis of the right hip. Mild tricompartmental osteoarthritis of the right knee. THIS IS AN ELECTRONICALLY VERIFIED FINAL REPORT 10/06/2024 3:49 PM - Electronically signed by Albert ORNELAS T: Report ID: [id number] Reading Location: [id number] Procedure Note Albert Lopes MD - 10/06/2024 EXAM DESCRIPTION: XR KNEE RIGHT 1 OR 2 VIEWS; XR FEMUR RIGHT 2 OR MOREVIEWS REASON FOR STUDY: fall States on Thursday to tripping and falling, was unable to stop herself r/t right hand pain. Admits to hurting right knee and has had right sided groin pain that has gotten increasingly worse since fall. Denies LOC, head and neck pain. TECHNIQUE: 2 radiographic view(s) of the right knee . 2 radiographic views of the right femur. COMPARISON: None FINDINGS: No acute fracture or malalignment. There is mildtricompartmental arthritis of the knee. Mild osteoarthritis of the right hip. Nosignificant knee joint effusion. Vascular calcifications are noted. IMPRESSION: No acute osseous abnormality. Mild osteoarthritis of the right hip. Mild tricompartmental osteoarthritis of the right knee. THIS IS AN ELECTRONICALLY VERIFIED FINAL REPORT 10/06/2024 3:49 PM - Electronically signed by Albert ORNELAS T: Report ID: [id number] Reading Location: [id number] us Jackie RAPHAEL IMG XR PROCEDURES Final Resul t * XR Knee Right 1 or 2 Views (10/06/2024 3:07 PM CDT) Anatomical Region Laterality Modality Lower Extremities, Knee Right Computed Radiography 10/06/2024 3:47 PM CDT Narrative 10/06/2024 3:49 PM CDT EXAM DESCRIPTION: XR KNEE RIGHT 1 OR 2 VIEWS; XR FEMUR RIGHT 2 OR MORE VIEWS REASON FOR STUDY: fall States on Thursday to tripping and falling, was unable to stop herself r/t right hand pain. Admits to hurting right knee and has had right sided groin pain that has gotten increasingly worse since fall. Denies LOC, head and neck pain. TECHNIQUE: 2 radiographic view(s) of the right knee . 2 radiographic views of the right femur. COMPARISON: None FINDINGS: No acute fracture or malalignment. There is mild tricompartmental arthritis of the knee. Mild osteoarthritis of the right hip. No significant knee joint effusion. Vascular calcifications are noted. IMPRESSION: No acute osseous abnormality. Mild osteoarthritis of the right hip. Mild tricompartmental osteoarthritis of the right knee. THIS IS AN ELECTRONICALLY VERIFIED FINAL REPORT 10/06/2024 3:49 PM - Electronically signed by Albert Lopes M.D. KR T: Report ID: [id number] Reading Location: [id number] Procedure Note Albert Lopes MD - 10/06/2024 EXAM DESCRIPTION: XR KNEE RIGHT 1 OR 2 VIEWS; XR FEMUR RIGHT 2 OR MOREVIEWS REASON FOR STUDY: fall States on Thursday to tripping and falling, was unable to stop herself r/t right hand pain. Admits to hurting right knee and has had right sided groin pain that has gotten increasingly worse since fall. Denies LOC, head and neck pain. TECHNIQUE: 2 radiographic view(s) of the right knee . 2 radiographic views of the right femur. COMPARISON: None FINDINGS: No acute fracture or malalignment. There is mildtricompartmental arthritis of the knee. Mild osteoarthritis of the right hip. Nosignificant knee joint effusion. Vascular calcifications are noted. IMPRESSION: No acute osseous abnormality. Mild osteoarthritis of the right hip. Mild tricompartmental osteoarthritis of the right knee. THIS IS AN ELECTRONICALLY VERIFIED FINAL REPORT 10/06/2024 3:49 PM - Electronically signed by Albert Lopes M.D. KR T: Report ID: [id number] Reading Location: [place] [id number] Jackie RAPHAEL IMG XR PROCEDURES Final Resul t * (ABNORMAL) eGFR (10/06/2024 2:27 PM CDT) Pathologist [facility] eGFR 3(L) >=60 mL/min/1. 73 m2 Comment: [...] interpretive data was last reviewed 2020. Blood 10/06/2024 2:27 PM CDT 10/06/2024 2:30 PM CDT Jackie RAPHAEL LAB BLOOD ORDERABLES Final Re sult [facility] [address] [facility] [place] [address] * Differential, auto (10/06/2024 2:27 PM CDT) Neutrophil abs 6.30 1.50 - 6.50 K/cumm Imm gran abs 0.04 0.00 - 0.10 K/cumm [facility] Lymphocyte abs 2.11 0.80 - 3.30 K/cumm [facility] Monocyte abs 0.68 0.20 - 0.80 K/cumm [facility] Eosinophil abs 0.45 0.00 - 0.50 K/cumm [facility] Basophil abs 0.05 0.00 - 0.10 K/cumm [facility] Neutrophil pct 65.4 % [facility] Comment: Interpretive Data Percent cell count reference ranges are not reported, since discordance with absolute values may lead to misinterpretation of CBC data. Current Interpretive Data was last revised on 2017. Imm gran pct 0.4 % [facility] Comment: Interpretive Data Percent cell count reference ranges are not reported, since discordance with absolute values may lead to misinterpretation of CBC data. Current Interpretive Data was last revised on 2017. Lymphocyte pct 21.9 % [facility] Comment: Interpretive Data Percent cell count reference ranges are not reported, since discordance with absolute values may lead to misinterpretation of CBC data. Current Interpretive Data was last revised on 2017. Monocyte pct 7.1 % [facility] Comment: Interpretive Data Percent cell count reference ranges are not reported, since discordance with absolute values may lead to misinterpretation of CBC data. Current Interpretive Data was last revised on 2017. Eosinophil pct 4.7 % [facility] Comment: Interpretive Data Percent cell count reference ranges are not reported, since discordance with absolute values may lead to misinterpretation of CBC data. Current Interpretive Data was last revised on 2017. Basophil pct 0.5 % [facility] Comment: Interpretive Data Percent cell count reference ranges are not reported, since discordance with absolute values may lead to misinterpretation of CBC data. Current Interpretive Data was last revised on 2017. Blood 10/06/2024 2:27 PM CDT 10/06/2024 2:30 PM CDT us Jackie RAPHAEL LAB BLOOD ORDERABLES Final Re sult [facility] [address] [facility] [place] [address] * (ABNORMAL) CBC with auto differential (10/06/2024 2:27 PM CDT) [facility] WBC 9.63 3.80 - 9.90 K/cumm Hgb 7.5(L) 11.9 - 15.5 g/dL [facility] Hct 24.4(L) 35.6 - 45.5 % [facility] Plt 218 150 - 400 K/cumm [facility] MPV 10.6 9.1 - 12.3 fL [facility] RBC 2.93(L) 3.90 - 5.20 M/cumm [facility] MCV 83.3 81.3 - 96.4 fL [facility] MCH 25.6(L) 27.1 - 33.3 pg [facility] MCHC 30.7(L) 32.3 - 35.7 g/dL [facility] RDW CV 16.9(H) 11.1 - 14.9 % [facility] RDW SD 50.4(H) 35.7 - 48.1 fL [facility] NRBC abs 0.00 0.00 - 0.01 K/cumm [facility] Blood 10/06/2024 2:27 PM CDT 10/06/2024 2:30 PM CDT us Jackie RAPHAEL LAB BLOOD ORDERABLES Final Re sult [facility] [address] [facility] [place] [address] * (ABNORMAL) Comprehensive metabolic panel (10/06/2024 2:27 PM CDT) [facility] Sodium 138 135 - 145 mmol/L Potassium, pl 4.1 3.3 - 4.9 mmol/L [facility] Chloride 99 97 - 110 mmol/L [facility] CO2 24 22 - 32 mmol/L [facility] Anion gap 15 2 - 15 mmol/L [facility] BUN 49(H) 6 - 25 mg/dL [facility] Creatinine 14.10(H) 0.60 - 1.10 mg/dL [facility] Glucose 248(H) 70 - 199 mg/dL [facility] [...] interpretive data was last revised 2022. Calcium 8.6 8.5 - 10.3 mg/dL [facility] Bilirubin, total 0.2 0.1 - 1.2 mg/dL [facility] Protein, pl 6.4(L) 6.5 - 8.5 g/dL [facility] Albumin 2.8(L) 3.5 - 5.0 g/dL [facility] Alk phos 321(H) 40 - 130 Units/L [facility] ALT 55(H) 7 - 45 Units/L [facility] AST 39 10 - 45 Units/L [facility] Blood 10/06/2024 2:27 PM CDT 10/06/2024 2:30 PM CDT us Jackie RAPHAEL LAB BLOOD ORDERABLES Final Re sult [facility] [address] [facility] Department of Laboratories [place], [place] [id number] * HLA Crossmatch Report (09/26/2024 10:00 AM CDT) us Sherwin Bhat MD LAB BLOOD ORDERABLES F inal Result * HLA Crossmatch, ALLO (09/26/2024 10:00 AM CDT) Blood 09/26/2024 10:0 0 AM CDT 10/21/2024 7:55 AM CDT Narrative [facility] - 10/21/2024 7:55 AM CDT us Sherwin Bhat MD LAB BLOOD ORDERABLES F inal Result [facility] * HLA Antibody Screen by PRA or SAB per Schedule (Class I and Class II) (09/26/2024 10:00 AM CDT) Blood 09/26/2024 10:0 0 AM CDT Narrative [facility] - TRANSITIONS MANAGER Sample received in lab. Single Antigen Antibody Screen ordered. Miriam Garner MD LAB BLOOD ORDERAB LES Final Result [facility] * HLA Antibody Screen - SAB (Class I and Class II) (09/26/2024 10:00 AM CDT) Class I Treatment EDTA [facility] Class I Dilution 1:1 [facility] Class I Tested Date 09/29/2024 [facility] Class I Result Positive [facility] Class I CPRA 92 [facility] Class I Increased Risk Bw6 [facility] Class I Moderate Risk A11, A43; B46, B73; Cw7, Cw8, Cw9, Cw10, Cw12 [facility] Class I Low Risk A25, A66; B7, B27, B42, B55, B67, B81; Cw1, Cw14, Cw16 [facility] Class I Reportable Comments Bw6 pattern present. [facility] Class II Treatment EDTA [facility] Class II Dilution 1:1 [facility] Class II Tested Date 09/29/2024 [facility] Class II Result Positive [facility] Class II CPRA 95 [facility] Class II Increased Risk DPB1*01:01 [facility] Class II Moderate Risk DR7, DR9, DR12, DR16, DR53; DPB1*03:01, DPB1*04:01, DPB1*05:01, DPB1*06:01, DPB1*09:01, DPB1*10:01, DPB1*11:01, DPB1*13:01, DPB1*14:01, DPB1*15:01, DPB1*17:01, DPB1*19:01, DPB1*23:01 [facility] Class II Low Risk DR1, DR4; DPB1*03:01, DPB1*20:01 [facility] Class II Reportable Comments Allelic antibody not listed: DRB1*15:01, DRB1*15:02, DRB3*01:01, DRB3*03:01 (alloantibod y, moderate risk), patient is DRB1*15:03, DRB3*02:02 per [facility]SO. Allelic antibody not listed: DRB1*15:03, DRB3*02:02 (autoantibod y), patient is DRB1*15:03, DRB3*02:02 per [facility]SO. [facility] 09/26/2024 10:0 0 AM CDT 09/30/2024 9:26 AM CDT Narrative [facility] - 09/30/2024 9:26 AM CDT Single-antigen HLA antibody screen is performed on serum samples using a method developed and validated by the [facility] HLA laboratory based on an FDA-approved IVD kit (LABScreen Single-Antigen, [employer], [place], [place]). All patient serum samples are pretreated with EDTA before the screen to prevent complement interference. Additional serum treatments, such as adsorption and DTT treatment, may be performed as indicated. Interpretive comments: Low risk: MFI [id number]. Moderate risk: MFI [id number]. Increased risk: MFI >/= 5000. The presence [...] antigens to avoid. Testing performed at the [facility], [address] [place] [address], 5th floor, [place], [address]. [facility] # [id number]. Amber Berry, Ph.D., Inspector Casing, [facility] Jonathan Brennan M.D., Ph.D., Substation Wireman, [facility] Rehana Alarcon, Ph.D., CLIA Substation Wireman, [facility] Clinical Laboratories Current methodology and interpretive comments last revised on 03/20/2022. Miriam Garner MD LAB BLOOD ORDERAB LES Final Result [facility] * POCT glucose (09/15/2024 11:26 AM CDT) Glucose, POC 128 70 - 199 mg/dL Glucose comment 1 RN/MD Notified DENNIS Blood 09/15/2024 11:2 6 AM CDT 09/15/2024 11:26 AM CDT Jonnathan Mojica DO LAB POCT ORDERABLES - DEV ICE Final Result Performing Organization Address City/[facility]/ZIP Co de Phone Number [facility] [address] [facility] [place] [address] * POCT glucose (09/15/2024 7:41 AM CDT) Glucose, POC 88 70 - 199 mg/dL Glucose comment 1 Use This Result [facility] Glucose comment 2 RN/MD Notified DENNIS Blood 09/15/2024 7:41 AM CDT 09/15/2024 7:41 AM CDT Jonnathan Daigle Galina DO LAB POCT ORDERABLES - DEV ICE Final Result Performing Organization Address [facility] Co de Phone Number DENNIS [address] [place] [address] * (ABNORMAL) eGFR (09/15/2024 5:03 AM CDT) [facility] eGFR 3(L) >=60 mL/min/1. 73 m2 Comment: [...] interpretive data was last reviewed 2020. Blood 09/15/2024 5:03 AM CDT 09/15/2024 5:25 AM CDT us Jonnathan Mojica DO LAB BLOOD ORDERABLES Vicki l Result Performing Organization Address [facility]/ZIP Co de Phone Number DENNIS [address] [place] [address] * Differential, auto (09/15/2024 5:03 AM CDT) [facility] Neutrophil abs 4.75 1.50 - 6.50 K/cumm Imm gran abs 0.03 0.00 - 0.10 K/cumm [facility] Lymphocyte abs 2.41 0.80 - 3.30 K/cumm [facility] Monocyte abs 0.57 0.20 - 0.80 K/cumm [facility] Eosinophil abs 0.43 0.00 - 0.50 K/cumm [facility] Basophil abs 0.04 0.00 - 0.10 K/cumm [facility] Neutrophil pct 57.7 % [facility] Comment: Interpretive Data Percent cell count reference ranges are not reported, since discordance with absolute values may lead to misinterpretation of CBC data. Current Interpretive Data was last revised on 2017. Imm gran pct 0.4 % [facility] Comment: Interpretive Data Percent cell count reference ranges are not reported, since discordance with absolute values may lead to misinterpretation of CBC data. Current Interpretive Data was last revised on 2017. Lymphocyte pct 29.3 % [facility] Comment: Interpretive Data Percent cell count reference ranges are not reported, since discordance with absolute values may lead to misinterpretation of CBC data. Current Interpretive Data was last revised on 2017. Monocyte pct 6.9 % [facility] Comment: Interpretive Data Percent cell count reference ranges are not reported, since discordance with absolute values may lead to misinterpretation of CBC data. Current Interpretive Data was last revised on 2017. Eosinophil pct 5.2 % [facility] Comment: Interpretive Data Percent cell count reference ranges are not reported, since discordance with absolute values may lead to misinterpretation of CBC data. Current Interpretive Data was last revised on 2017. Basophil pct 0.5 % [facility] Comment: Interpretive Data Percent cell count reference ranges are not reported, since discordance with absolute values may lead to misinterpretation of CBC data. Current Interpretive Data was last revised on 2017. Blood 09/15/2024 5:03 AM CDT 09/15/2024 5:25 AM CDT us Jonnathan Mojica DO LAB BLOOD ORDERABLES Vicki l Result [facility] [address] [facility] Department [place] [address] * (ABNORMAL) CBC with auto differential (09/15/2024 5:03 AM CDT) WBC 8.23 3.80 - 9.90 K/cumm Hgb 7.4(L) 11.9 - 15.5 g/dL [facility] Hct 24.4(L) 35.6 - 45.5 % [facility] Plt 269 150 - 400 K/cumm [facility] MPV 9.6 9.1 - 12.3 fL [facility] RBC 2.93(L) 3.90 - 5.20 M/cumm [facility] MCV 83.3 81.3 - 96.4 fL [facility] MCH 25.3(L) 27.1 - 33.3 pg [facility] MCHC 30.3(L) 32.3 - 35.7 g/dL [facility] RDW CV 16.1(H) 11.1 - 14.9 % [facility] RDW SD 48.9(H) 35.7 - 48.1 fL [facility] NRBC abs 0.00 0.00 - 0.01 K/cumm [facility] Blood 09/15/2024 5:03 AM CDT 09/15/2024 5:25 AM CDT Shutl LAB BLOOD ORDERABLES Vicki l Result Performing Organization Address [facility] Co de Phone Number [address] [employer] [place] [address] * (ABNORMAL) Erythrocyte sedimentation rate (09/15/2024 5:03 AM CDT) [facility] Erythrocyte sedimentation rate 52(H) 1 - 20 mm/hr Blood 09/15/2024 5:03 AM CDT 09/15/2024 5:25 AM CDT Shutl LAB BLOOD ORDERABLES Vicki l Result Performing Organization Address City/[facility]/ZIP Co de Phone Number [address] [place] [address] * (ABNORMAL) CRP (acute phase) (09/15/2024 5:03 AM CDT) Pathologist [facility] CRP 12.1(H) <=10.0 mg/L Blood 09/15/2024 5:03 AM CDT 09/15/2024 5:25 AM CDT Jonnathan Mojica DO LAB BLOOD ORDERABLES Vicki l Result Performing Organization Address [facility] Co de Phone Number [address] [address] * (ABNORMAL) Phosphorus (09/15/2024 5:03 AM CDT) Pathologist [facility] Phosphorus, pl 6.8(H) 2.3 - 4.5 mg/dL Blood 09/15/2024 5:03 AM CDT 09/15/2024 5:25 AM CDT us Herbert Dahl MD LAB BLOOD ORDERABLES Final Res ult Performing Organization Address [facility] Co de Phone Number [address] [place] [address] * Magnesium (09/15/2024 5:03 AM CDT) [facility] Magnesium 1.9 1.4 - 2.5 mg/dL Blood 09/15/2024 5:03 AM CDT 09/15/2024 5:25 AM CDT Herbert Dahl MD LAB BLOOD ORDERABLES Final Res ult Performing Organization Address [facility] de Phone Number [address] [place] [address] * (ABNORMAL) Basic metabolic panel (09/15/2024 5:03 AM CDT) [facility] Sodium 138 135 - 145 mmol/L Potassium, pl 4.2 3.3 - 4.9 mmol/L [facility] Chloride 103 97 - 110 mmol/L [facility] CO2 24 22 - 32 mmol/L [facility] Anion gap 11 2 - 15 mmol/L [facility] BUN 48(H) 6 - 25 mg/dL [facility] Creatinine 13.80(H) 0.60 - 1.10 mg/dL [facility] Glucose 119 70 - 199 mg/dL [facility] [...] interpretive data was last revised 2022. Calcium 8.7 8.5 - 10.3 mg/dL [facility] Blood 09/15/2024 5:03 AM CDT 09/15/2024 5:25 AM CDT Shutl LAB BLOOD ORDERABLES Vicki l Result Performing Organization Address City/[facility]/ZIP Co de Phone Number [address] [place] [address] * POCT glucose (09/14/2024 11:34 PM CDT) Glucose, POC 149 70 - 199 mg/dL Blood 09/14/2024 11:3 4 PM CDT 09/14/2024 11:34 PM CDT [employer] DO LAB POCT ORDERABLES - DEV ICE Final Result Performing Organization Address City/[facility]/ZIP Co de Phone Number [address] [place] [address] * POCT glucose (09/14/2024 7:36 PM CDT) Glucose, POC 153 70 - 199 mg/dL Blood 09/14/2024 7:36 PM CDT 09/14/2024 7:36 PM CDT [employer] DO LAB POCT ORDERABLES - DEV ICE Final Result Performing Organization Address [facility] Co de Phone Number DENNIS [address] [address] * POCT glucose (09/14/2024 4:02 PM CDT) Glucose, POC 89 70 - 199 mg/dL Glucose comment 1 Use This Result [facility] Glucose comment 2 RN/MD Notified DENNIS Blood 09/14/2024 4:02 PM CDT 09/14/2024 4:02 PM CDT Jonnathan Pilo Galina DO LAB POCT ORDERABLES - DEV ICE Final Result Performing Organization Address [facility] Co de Phone Number DENNIS [address] [address] * POCT glucose (09/14/2024 11:36 AM CDT) Glucose, POC 108 70 - 199 mg/dL Glucose comment 1 Use This Result [facility] Glucose comment 2 RN/MD Notified DENNIS Blood 09/14/2024 11:3 6 AM CDT 09/14/2024 11:36 AM CDT Jonnathantravis Daigle Galina DO LAB POCT ORDERABLES - DEV ICE Final Result Performing Organization Address [facility] Co de Phone Number DENNIS [address] [address] * (ABNORMAL) POCT glucose (09/14/2024 8:27 AM CDT) Glucose, POC 65(L) 70 - 199 mg/dL Glucose comment 1 Use This Result [facility] Glucose comment 2 RN/MD Notified DENNIS Blood 09/14/2024 8:27 AM CDT 09/14/2024 8:27 AM CDT Jonnathan Pilo Galina DO LAB POCT ORDERABLES - DEV ICE Final Result Performing Organization Address [facility] Co de Phone Number YVONNE[address] [place] [address] * Hepatitis B surface antibody (immune status) Blood (09/14/2024 7:15 AM CDT) Pathologist [facility] HBsAb (immune status) Reactive Comment: Interpretive Data Nonreactive: This result is consistent with a lack of immunity to Hepatitis B Virus when used in the setting of routine screening. Equivocal: The immune status of the individual should be further assessed, if appropriate, after consideration of clinical status, risk factors, and additional diagnostic information. Reactive: This result is consistent with immunity to Hepatitis B Virus when used in the setting of routine screening. Current interpretive data was last revised on 19. HBsAb (immune status) index 136.0 mIUnits/m L [facility] Blood 09/14/2024 7:15 AM CDT 09/14/2024 7:18 AM CDT Tomer Marmolejo MD LAB MICROBIOLOGY - GENERAL OR DERABLES Final Result Performing Organization Address [facility] de Phone Number YVON[address] [address] * Hepatitis B Surface Antigen Blood (09/14/2024 7:15 AM CDT) [facility] HepBsAg Nonreactive Nonreactive Blood 09/14/2024 7:15 AM CDT 09/14/2024 7:18 AM CDT Tomer Marmolejo MD LAB MICROBIOLOGY - GENERAL OR DERABLES Final Result Performing Organization Address [facility] Co de Phone Number YVONNE[address] [place] [address] * (ABNORMAL) eGFR (09/14/2024 5:21 AM CDT) [facility] eGFR 3(L) >=60 mL/min/1. 73 m2 Comment: [...] interpretive data was last reviewed 2020. Blood 09/14/2024 5:21 AM CDT 09/14/2024 5:36 AM CDT us Herbert Dahl MD LAB BLOOD ORDERABLES Final Res ult [facility] [address] [facility] Department [place] [address] * (ABNORMAL) CBC without differential (09/14/2024 5:21 AM CDT) WBC 8.98 3.80 - 9.90 K/cumm Hgb 7.5(L) 11.9 - 15.5 g/dL [facility] Hct 24.6(L) 35.6 - 45.5 % [facility] Plt 256 150 - 400 K/cumm [facility] MPV 9.2 9.1 - 12.3 fL [facility] RBC 2.95(L) 3.90 - 5.20 M/cumm [facility] MCV 83.4 81.3 - 96.4 fL [facility] MCH 25.4(L) 27.1 - 33.3 pg [facility] MCHC 30.5(L) 32.3 - 35.7 g/dL [facility] RDW CV 16.1(H) 11.1 - 14.9 % [facility] RDW SD 48.2(H) 35.7 - 48.1 fL [facility] NRBC abs 0.00 0.00 - 0.01 K/cumm DENNIS Blood 09/14/2024 5:21 AM CDT 09/14/2024 5:36 AM CDT us Herbert Dahl MD LAB BLOOD ORDERABLES Final Res ult Performing Organization Address City/[facility]/ZIP Co de Phone Number YVONNE[address] [place] [address] * (ABNORMAL) Phosphorus (09/14/2024 5:21 AM CDT) Phosphorus, pl 6.5(H) 2.3 - 4.5 mg/dL Blood 09/14/2024 5:21 AM CDT 09/14/2024 5:36 AM CDT us Herbert Dahl MD LAB BLOOD ORDERABLES Final Res ult Performing Organization Address [facility] Co de Phone Number [address] [place] [address] * Magnesium (09/14/2024 5:21 AM CDT) Pathologist [facility] Magnesium 2.0 1.4 - 2.5 mg/dL Blood 09/14/2024 5:21 AM CDT 09/14/2024 5:36 AM CDT Herbert Dahl MD LAB BLOOD ORDERABLES Final Res ult Performing Organization Address City/[facility] Co de Phone Number [address] [place] [address] * (ABNORMAL) Hemoglobin A1c (09/14/2024 5:21 AM CDT) Hgb A1C 6.2(H) 4.0 - 5.6 % Estimated Average Glucose 131 mg/dL DENNIS Comment: The ADA recommends reporting an estimated Average Glucose (eAG) with all Hemoglobin A1c results using the equation derived from a study of 507 normal and diabetic adults. Minority populations were underrepresented and children were not included. (Diabetes Care 31:8670-8529, 2008). The eAG is not equivalent to a fasting glucose. Blood 09/14/2024 5:21 AM CDT 09/14/2024 5:36 AM CDT us Jonnathan Mojica DO LAB BLOOD ORDERABLES Vicki l Result Performing Organization Address [facility] de Phone Number [address] [address] * Vancomycin level random (09/14/2024 5:21 AM CDT) Pathologist [facility] Vancomycin random 34.6 mcg/mL Comment: Interpretive Data No reference ranges have been established for random drug levels. Current Interpretive Data was last revised on 2020. Blood 09/14/2024 5:21 AM CDT 09/14/2024 5:36 AM CDT us Herbert Dahl MD LAB BLOOD ORDERABLES Final Res ult Performing Organization Address [facility] de Phone Number [address] [address] * (ABNORMAL) Basic metabolic panel (09/14/2024 5:21 AM CDT) Pathologist [facility] Sodium 140 135 - 145 mmol/L Potassium, pl 4.4 3.3 - 4.9 mmol/L [facility] Comment:Hemolyzed; Potassium value may be falsely elevated by as much as 1.0 mmol/L. Suggest redraw and reanalysis. Chloride 106 97 - 110 mmol/L [facility] CO2 23 22 - 32 mmol/L [facility] Anion gap 11 2 - 15 mmol/L [facility] BUN 49(H) 6 - 25 mg/dL [facility] Creatinine 13.70(H) 0.60 - 1.10 mg/dL [facility] Glucose 90 70 - 199 mg/dL [facility] Comment: Delta - Results Reviewed Interpretive Data Fasting glucose >/= 126 mg/dl [...] 2022. Calcium 8.8 8.5 - 10.3 mg/dL DENNIS JOSUE Blood 09/14/2024 5:21 AM CDT 09/14/2024 5:36 AM CDT us Herbert Dahl MD LAB BLOOD ORDERABLES Final Res ult DENNIS [address] [facility] Department [place] [address] * CT Hand Right WO Contrast (09/14/2024 2:34 AM CDT) Anatomical Region Laterality Modality Upper Extremities Right Computed Tomog thiago 09/14/2024 9:19 AM CDT Narrative 09/14/2024 9:48 AM CDT EXAM DESCRIPTION: CT HAND RIGHT WO CONTRAST REASON FOR STUDY: Soft tissue infection suspected, hand, xray done C/o right hand pain. Was in ED after hypoglycemic event at [employer], She states that upon waking up in the ED, she found the third and fourth digit of her right hand taped together and states she was not given explanation for this. There does appear to be an xray done on right hand with Trauma as indication but no other mention of injury in ED note. Patient states that she may have additionally had POC fingerstick done on those fingers but she is not sure. She states after leaving the ED she started to feel her hand swelling and had more difficulty making a fist. She endorses having had trouble holding the steering wheel when driving home and now states she has difficulty holding a pen to write. She states she has some numbness in the tips of her third and fourth digits. GFR 3 TECHNIQUE: Multidetector CT scan of the right hand was performed. Coronal and sagittal images were reconstructed. Dose modulation adjustment of the mA and/or kV has been performed per [facility] protocols according to patient size and indication. COMPARISON: X-rays 09/13/2024 FINDINGS: There is induration of the subcutaneous soft tissues about the fingers more diffusely. Nonspecific edema. Correlate for skin thickening and cellulitis. No definitive focal fluid collection to suggest abscess formation. No evidence of tenosynovitis. If there is persistent clinical concern, MRI could be obtained. While CT is more limited in evaluation of tendinous and ligamentous structures. No prominent gap is suggested that would suggest a tear. No definite tenosynovitis by CT. Osseous structures demonstrate no acute fracture. No significant arthropathy. There is atherosclerotic change IMPRESSION: 1. There is induration of the subcutaneous soft tissues about the fingers more diffusely. Nonspecific edema. Correlate for cellulitis. No definitive focal fluid collection to suggest abscess formation. 2. No evidence of tenosynovitis by CT. 3. No acute fracture. 4. Atherosclerotic change. THIS IS AN ELECTRONICALLY VERIFIED FINAL REPORT 09/14/2024 9:48 AM - Electronically signed by Nick Miller M.D. MJ T: Report ID: [id number] Reading Location: [id number] Procedure Note Nick Miller MD - 09/14/2024 EXAM DESCRIPTION: CT HAND RIGHT WO CONTRAST REASON FOR STUDY: Soft tissue infection suspected, hand, xray done C/o right hand pain. Was in ED after hypoglycemic event at [employer],She states that upon waking up in the ED, she found the third and fourth digitof her right hand taped together and states she was not given explanation for this. There does appear to be an xray done on right hand with Traumaas indication but no other mention of injury in ED note. Patient states thatshe may have additionally had POC fingerstick done on those fingers but she isnot sure. She states after leaving the ED she started to feel her handswelling and had more difficulty making a fist. She endorses having had troubleholding the steering wheel when driving home and now states she has difficultyholding a pen to write. She states she has some numbness in the tips of herthird and fourth digits. GFR 3 TECHNIQUE: Multidetector CT scan of the right hand was performed.Coronal and sagittal images were reconstructed. Dose modulation adjustment of the mA and/or kV has been performed per [facility] protocols according to patient size and indication. COMPARISON: X-rays 09/13/2024 FINDINGS: There is induration of the subcutaneous soft tissues about the fingers more diffusely. Nonspecific edema. Correlate for skin thickeningand cellulitis. No definitive focal fluid collection to suggest abscess formation. No evidence of tenosynovitis. If there is persistent clinical concern, MRI could be obtained. While CT is more limited in evaluation of tendinous and ligamentous structures. No prominent gap is suggested that would suggest a tear. No definite tenosynovitis by CT. Osseous structures demonstrate no acute fracture. No significantarthropathy. There is atherosclerotic change IMPRESSION: 1. There is induration of the subcutaneous soft tissues about thefingers more diffusely. Nonspecific edema. Correlate for cellulitis. Nodefinitive focal fluid collection to suggest abscess formation. 2. No evidence of tenosynovitis by CT. 3. No acute fracture. 4. Atherosclerotic change. THIS IS AN ELECTRONICALLY VERIFIED FINAL REPORT 09/14/2024 9:48 AM - Electronically signed by Nick Miller M.D. T: Report ID: [id number] Reading Location: [place] [address] us Herbert Dahl MD IMG CT PROCEDURES Final Result * POCT glucose (09/14/2024 1:31 AM CDT) [facility] Signature Glucose, POC 94 70 - 199 mg/dL Blood 09/14/2024 1:31 AM CDT 09/14/2024 1:31 AM CDT us Herbert Dahl MD LAB POCT ORDERABLES - DEVICE F inal Result [facility] [address] [facility] Department [place] [address] * Blood culture Blood (09/13/2024 11:28 PM CDT) Report Final Report: No growth Comment:Testing performed by : [facility], [address] [place]., [address] Blood 09/13/2024 11:2 8 PM CDT 09/14/2024 5:06 AM CDT Narrative DENNIS JOSUE - 09/18/2024 7:01 AM CDT From a different site than #1. Collection->Peripheral 1. Blood cultures are incubated for 4 days on a continuously monitored blood culture system. The first report of a negative culture is issued within 24 hours of receipt of the specimen in the laboratory. 2. Positive culture results are reported as soon as they are detected. 3. The most important factor for detection of microbes in the setting of bloodstream infection is the volume of blood submitted for culture. Failure to collect an optimal blood volume can result in false negative blood cultures. 4. For pediatric patients, the recommended blood volume to collect follows a weight based strategy. See the electronic test catalog for collection instructions. 5. For positive blood cultures, a rapid molecular test may be performed for organism identification using the angel e[employer]lex blood culture identification panel for gram positive (BCID-GP) and gram negative (BCID-GN) organisms. This nucleic acid amplification test detects microbial DNA in positive blood culture broth. This assay has been cleared by the [place] Food and Drug Administration and its performance characteristics have been verified by the [facility] Microbiology Laboratory. For questions about this culture, contact the Microbiology Laboratory at [phone]. Interpretive data was last revised on 23. us Herbert Dahl MD LAB MICROBIOLOGY - GENERAL ORD ERABLES Final Result DENNIS JOSUE [address] [facility] Department [place] [address] * Blood culture Blood (09/13/2024 11:28 PM CDT) Report Final Report: No growth Comment:Testing performed by : [facility], [address] [place]., [address] Blood 09/13/2024 11:2 8 PM CDT 09/14/2024 5:06 AM CDT Narrative DENNIS JOSUE - 09/18/2024 7:01 AM CDT Collection->Peripheral 1. Blood cultures are incubated for 4 days on a continuously monitored blood culture system. The first report of a negative culture is issued within 24 hours of receipt of the specimen in the laboratory. 2. Positive culture results are reported as soon as they are detected. 3. The most important factor for detection of microbes in the setting of bloodstream infection is the volume of blood submitted for culture. Failure to collect an optimal blood volume can result in false negative blood cultures. 4. For pediatric patients, the recommended blood volume to collect follows a weight based strategy. See the electronic test catalog for collection instructions. 5. For positive blood cultures, a rapid molecular test may be performed for organism identification using the angel ePlex blood culture identification panel for gram positive (BCID-GP) and gram negative (BCID-GN) organisms. This nucleic acid amplification test detects microbial DNA in positive blood culture broth. This assay has been cleared by the [place] Food and Drug Administration and its performance characteristics have been verified by the [facility] Microbiology Laboratory. For questions about this culture, contact the Microbiology Laboratory at [phone]. Interpretive data was last revised on 23. us Herbert Dahl MD LAB MICROBIOLOGY - GENERAL ORD ERABLES Final Result DENNIS [address] [facility] [place] [address] * hCG, blood, quantitative (09/13/2024 10:46 PM CDT) hCG, quant <5.0 0.0 - 5.0 IUnits/L Comment: Interpretive Data Male: < 5 IU/L Non- premenopausal Female: <5 IU/L The Rudy hCG Beta Quant assay procedure was used. Results from different manufacturers or methods may not be comparable. Serial testing should be performed using the same method. Interpretive Data was last revised on 2023 Blood 09/13/2024 10:4 6 PM CDT 09/13/2024 10:46 PM CDT us Herbert Dahl MD LAB BLOOD ORDERABLES Final Res ult Performing Organization Address [facility] Co de Phone Number DENNIS [address] [address] * POCT glucose (09/13/2024 9:24 PM CDT) Glucose, POC 125 70 - 199 mg/dL Blood 09/13/2024 9:24 PM CDT 09/13/2024 9:24 PM CDT us Herbert Dahl MD LAB POCT ORDERABLES - DEVICE F inal Result Performing Organization Address [facility] de Phone Number DENNIS [address] [address] * [place] CRITICAL CARE ILL/INJURED PATIENT INIT 30-74 MIN (09/13/2024 6:54 PM CDT) Narrative Adria Dominguez MD - 09/13/2024 6:54 PM CDT Adria Dominguez MD 09/13/2024 6:54 PM Critical Care Performed by: Adria Dominguez MD Authorized by: Adria Dominguez MD Critical care provider statement: As reflected in the history, physical exam, orders, notes, and/or MDM, I was personally present while the patient was critically ill and provided critical care services for 35 minutes, excluding time involved in separately billable procedures. Critical care was necessary to treat or prevent imminent or life-threatening deterioration of the following condition(s): hypertensive crisis Critical care was time spent by me providing the following: continuous telemetry, continuous pulse oximetry, interpretation of bedside monitors, imaging, and arterial/venous lab draws, serial bedside patient exams and serial laboratory checks initiation and active titration of vasoactive medications I provided emergent necessary critical care medicine services to this patient. I ordered and reviewed test results and/or imaging studies. I spent time discussing the management of this critically ill patient with consultants and the medical staff. I spent time discussing the management and therapeutic options for this critically ill patient with the patient themselves or with the appropriate designated surrogate decision-maker. I spent time documenting in the medical record. I admitted this patient to a continuous cardiac monitored bed. Adria Dominguez MD IN CLINIC/BEDSIDE ORDERABL ES Final Result * (ABNORMAL) Troponin T high-sensitivity 4-hour (09/13/2024 3:54 PM CDT) Trop T hs 354(C) <=14 ng/L Comment: Critical Result called to and read back by [id number], DATE: 2024-09-13 16:35:35 BY: [id number] Interpretive Data For further hscTnT resources including the diagnostic algorithm and an aid in interpretation, copy and paste this link: https://nrl.testcatalog.org/show/hsTrop Current Interpretive Data last revised 2020. Trop T hs pct delta -1 % DENNIS Trop T hs interp Insignificant [facility] Blood 09/13/2024 3:54 PM CDT 09/13/2024 3:57 PM CDT Henrry Macedo MD LAB BLOOD ORDERABLES Final Resu lt Performing Organization Address [facility] Co de Phone Number YVONNE[address] [place] [address] * aPTT (09/13/2024 3:54 PM CDT) aPTT 25 22 - 37 sec Comment: Interpretive data aPTT test has not been evaluated for monitoring heparin therapy. The anti-Xa is the preferred test. Current interpretive data was last revised on 2019. Blood 09/13/2024 3:54 PM CDT 09/13/2024 3:57 PM CDT Adria Dominguez MD LAB BLOOD ORDERABLES Final Result Performing Organization Address City/[facility]/ZIP Co de Phone Number DENNIS [address] [place] [address] * Protime-INR (09/13/2024 3:54 PM CDT) PT 14.20 12.00 - 14.60 sec INR 1.09 0.90 - 1.20 DENNIS Comment: Ref Range High Interpretive data Oral anticoagulant therapeutic ranges: Venous thromboembolism prophylaxis or treatment: 2.0-3.0 CARDIOLOGY Standard range: 2.0-3.0 High-intensity range: 2.5-3.5 Refer to indication-specific guidelines for appropriate target ranges for prosthetic heart valve replacement. Current interpretive data was last revised on 2019. Blood 09/13/2024 3:54 PM CDT 09/13/2024 3:57 PM CDT Adria Dominguez MD LAB BLOOD ORDERABLES Final Result Performing Organization Address City/[facility] Co de Phone Number DENNIS [facility] [employer] [place] [address] * (ABNORMAL) Troponin T high-sensitivity 2-hour (09/13/2024 1:48 PM CDT) Trop T hs 354(C) <=14 ng/L Comment: Critical Result called to and read back by [email or web address], DATE: 2024-09-13 14:41:09 BY: [id number] Interpretive Data For further hscTnT resources including the diagnostic algorithm and an aid in interpretation, copy and paste this link: https://nrl.testcatalog.org/show/hsTrop Current Interpretive Data last revised 2020. Trop T hs pct delta -1 % DENNIS Trop T hs interp Insignificant DENNIS Blood 09/13/2024 1:48 PM CDT 09/13/2024 2:03 PM CDT us Henrry Macedo MD LAB BLOOD ORDERABLES Final Resu lt Performing Organization Address City/[facility]/ZIP Co de Phone Number DENNIS [address] [place] [address] * Influenza A/B, RSV, and COVID-19 PCR Nasopharyngeal (09/13/2024 1:48 PM CDT) [facility] COVID-19 RNA Negative Negative Influenza A RNA Negative Negative [facility] Influenza B RNA Negative Negative [facility] RSV RNA Negative Negative [facility] Comment: Interpretive data: Testing performed by [facility]. This test is performed using the uFaber Xpert Xpress CoV-2/Flu/RSV plus assay. This is a multiplex, real-time reverse transcriptase PCR assay intended for the qualitative detection of nucleic acid from SARS-CoV-2, influenza A, influenza B, and respiratory syncytial virus. This assay has been cleared by the [place] Food and Drug administration. The performance characteristics have been verified by the [facility]. Results must be considered in the clinical context, and a negative result does not rule out infection. Interpretive Data last revised 2023 Nasopharyngeal 09/13/2024 1: 48 PM CDT 09/13/2024 2:03 PM CDT Narrative [facility] - 09/13/2024 2:52 PM CDT Is the Patient experiencing symptoms consistent with COVID?->Unknown Adria Dominguez MD LAB MICROBIOLOGY - GENERAL ORDERABLES Final Result [address] [place] [address] * Sepsis Lactate w/ Reflex (09/13/2024 1:48 PM CDT) [facility] Sepsis Lactate 0.9 0.7 - 2.0 mmol/L Blood 09/13/2024 1:48 PM CDT 09/13/2024 2:03 PM CDT Adria Dominguez MD LAB BLOOD ORDERABLES Final Result [address] [place] [address] * XR Chest 1 Vw Portable (If patient hemodynamically UNstable or UNable to ambulate) (09/13/2024 12:24 PM CDT) Anatomical Region Laterality Modality Body, Chest N/A Computed Radiogr aphy 09/13/2024 12:3 5 PM CDT Narrative 09/13/2024 12:36 PM CDT EXAM DESCRIPTION: XR CHEST 1 VIEW REASON FOR STUDY: Shortness of breath Pt presents to ED for SOB since 0100 this morning Endorses: shortness of breath at rest and on exertion, chest discomfort, non-productive cough, I feel like I have pneumonia because I had the AC on 70s and I sleep with the fan on Denies: fevers/chills, n/v/d, urinary complaints, abdominal pain, dizziness/lightheadedness RR slightly labored on exertion. NAD. AAOX4. Ambulatory with slow and steady gait. TECHNIQUE: Single radiographic view(s) of the chest. COMPARISON: Prior exam 04/06/2024 and 01/07/2024 FINDINGS: LUNGS: Pulmonary vascularity appears normal. Decreased lung volume. Minimal blunting costophrenic angles compared to prior. This may be exaggerated by lower lung volume. HEART/MEDIASTINUM: Cardiac silhouette normal in size. Mediastinal and hilar contours appear normal. LINES/TUBES: None. BONES: No acute osseous abnormality. IMPRESSION: Minimal blunting costophrenic angles may reflect trace effusions. This may be exaggerated by lower lung volume. Otherwise, no definite infiltrate or effusion. THIS IS AN ELECTRONICALLY VERIFIED FINAL REPORT 09/13/2024 12:36 PM - Electronically signed by Nick Miller M.D. MJ T: Report ID: [id number] Reading Location: [id number] Procedure Note Nick Miller MD - 09/13/2024 EXAM DESCRIPTION: XR CHEST 1 VIEW REASON FOR STUDY: Shortness of breath Pt presents to ED for SOB since 0100 this morning Endorses: shortnessof breath at rest and on exertion, chest discomfort, non-productive cough, I feel like I have pneumonia because I had the AC on 70s and I sleep withthe fan on Denies: fevers/chills, n/v/d, urinary complaints, abdominal pain, dizziness/lightheadedness RR slightly labored on exertion. NAD. AAOX4. Ambulatory with slow and steady gait. TECHNIQUE: Single radiographic view(s) of the chest. COMPARISON: Prior exam 04/06/2024 and 01/07/2024 FINDINGS: LUNGS: Pulmonary vascularity appears normal. Decreased lung volume. Minimal blunting costophrenic angles compared to prior. This maybe exaggerated by lower lung volume. HEART/MEDIASTINUM: Cardiac silhouette normal in size. Mediastinal andhilar contours appear normal. LINES/TUBES: None. BONES: No acute osseous abnormality. IMPRESSION: Minimal blunting costophrenic angles may reflect traceeffusions. This may be exaggerated by lower lung volume. Otherwise, no definite infiltrate or effusion. THIS IS AN ELECTRONICALLY VERIFIED FINAL REPORT 09/13/2024 12:36 PM - Electronically signed by Nick Miller M.D. MJ T: Report ID: [id number] Reading Location: [place] [address] Adria Dominguez MD IMG XR PROCEDURES Final Re sult * XR Hand Right 3 or More Views (09/13/2024 12:24 PM CDT) Anatomical Region Laterality Modality Upper Extremities, Hand Right Computed Radiography 09/13/2024 12:3 4 PM CDT Narrative 09/13/2024 12:35 PM CDT EXAM DESCRIPTION: XR HAND RIGHT 3 OR MORE VIEWS REASON FOR STUDY: Pain. Pt presents to ED for SOB since 0100 this morning Endorses: shortness of breath at rest and on exertion, chest discomfort, non-productive cough, I feel like I have pneumonia because I had the AC on 70s and I sleep with the fan on Denies: fevers/chills, n/v/d, urinary complaints, abdominal pain, dizziness/lightheadedness RR slightly labored on exertion. NAD. AAOX4. Ambulatory with slow and steady gait. TECHNIQUE: There are 3 radiographic view(s) of the right hand . COMPARISON: No prior. FINDINGS: Normal mineralization. No acute fracture or dislocation. Joint spaces are intact. There is atherosclerotic change. IMPRESSION: 1. No acute fracture. 2. Atherosclerotic change. THIS IS AN ELECTRONICALLY VERIFIED FINAL REPORT 09/13/2024 12:35 PM - Electronically signed by Nick SCHMID T: Report ID: [id number] Reading Location: [id number] Procedure Note Nick Miller MD - 09/13/2024 EXAM DESCRIPTION: XR HAND RIGHT 3 OR MORE VIEWS REASON FOR STUDY: Pain. Pt presents to ED for SOB since 0100 this morning Endorses: shortnessof breath at rest and on exertion, chest discomfort, non-productive cough, I feel like I have pneumonia because I had the AC on 70s and I sleep withthe fan on Denies: fevers/chills, n/v/d, urinary complaints, abdominal pain, dizziness/lightheadedness RR slightly labored on exertion. NAD. AAOX4. Ambulatory with slow and steady gait. TECHNIQUE: There are 3 radiographic view(s) of the right hand . COMPARISON: No prior. FINDINGS: Normal mineralization. No acute fracture or dislocation. Joint spaces are intact. There is atherosclerotic change. IMPRESSION: 1. No acute fracture. 2. Atherosclerotic change. THIS IS AN ELECTRONICALLY VERIFIED FINAL REPORT 09/13/2024 12:35 PM - Electronically signed by Nick SCHMID T: Report ID: [id number] Reading Location: [place] [address] us Adria Dominguez MD IMG XR PROCEDURES Final Re sult * ECG 12 lead (09/13/2024 11:59 AM CDT) Ventricular Rate EKG/Min 77 BPM [facility] Atrial Rate 77 BPM [facility] [place]-Interval (MSEC) 142 ms [facility] QRS-Interval (MSEC) 72 ms [facility] QT-Interval (MSEC) 400 ms [facility] QTc 452 ms [facility] P [place] 60 degrees [facility] R [place] 16 degrees [facility] T [place] 102 degrees [facility] Diagnosis Normal sinus rhythm Septal infarct (cited on or before 06-APR-2024) Abnormal ECG When compared with ECG of 06-APR-2024 08:18, Nonspecific T wave abnormality now evident in Lateral leads Confirmed by TITI MONGE M.D. ([id number]) on 09/14/2024 7:54:42 AM [facility] [employer] 09/13/2024 11:5 9 AM CDT 09/14/2024 7:54 AM CDT Adria Dominguez MD ECG ORDERABLES Final Resu lt Performing Organization Address [facility] de Phone Number Dissolve [facility] * (ABNORMAL) Troponin T high-sensitivity series (baseline, 2hr, 4hr, 6hr) (09/13/2024 11:50 AM CDT) Trop T hs 358(C) <=14 ng/L Comment: Critical Result called to and read back by [id number], DATE: 2024-09-13 12:26:30 BY: [id number] Interpretive Data For further hscTnT resources including the diagnostic algorithm and an aid in interpretation, copy and paste this link: https://nrl.testcatalog.org/show/hsTrop Current Interpretive Data last revised 2020. Blood 09/13/2024 11:5 0 AM CDT 09/13/2024 11:54 AM CDT us Adria Dominguez MD LAB BLOOD ORDERABLES Final Result Performing Organization Address [facility] de Phone Number DENNIS [facility] [place] [address] * (ABNORMAL) eGFR (09/13/2024 11:50 AM CDT) eGFR 3(L) >=60 mL/min/1. 73 m2 Comment: [...] interpretive data was last reviewed 2020. Blood 09/13/2024 11:5 0 AM CDT 09/13/2024 11:54 AM CDT us Adria Dominguez MD LAB BLOOD ORDERABLES Final Result [place] [id number] [facility] Department [place] [address] * (ABNORMAL) Differential, auto (09/13/2024 11:50 AM CDT) Neutrophil abs 6.89(H) 1.50 - 6.50 K/cumm Imm gran abs 0.04 0.00 - 0.10 K/cumm [facility] Lymphocyte abs 2.47 0.80 - 3.30 K/cumm [facility] Monocyte abs 0.62 0.20 - 0.80 K/cumm [facility] Eosinophil abs 0.44 0.00 - 0.50 K/cumm [facility] Basophil abs 0.08 0.00 - 0.10 K/cumm [facility] Neutrophil pct 65.3 % [facility] Comment: Interpretive Data Percent cell count reference ranges are not reported, since discordance with absolute values may lead to misinterpretation of CBC data. Current Interpretive Data was last revised on 2017. Imm gran pct 0.4 % [facility] Comment: Interpretive Data Percent cell count reference ranges are not reported, since discordance with absolute values may lead to misinterpretation of CBC data. Current Interpretive Data was last revised on 2017. Lymphocyte pct 23.4 % [facility] Comment: Interpretive Data Percent cell count reference ranges are not reported, since discordance with absolute values may lead to misinterpretation of CBC data. Current Interpretive Data was last revised on 2017. Monocyte pct 5.9 % [facility] Comment: Interpretive Data Percent cell count reference ranges are not reported, since discordance with absolute values may lead to misinterpretation of CBC data. Current Interpretive Data was last revised on 2017. Eosinophil pct 4.2 % [facility] Comment: Interpretive Data Percent cell count reference ranges are not reported, since discordance with absolute values may lead to misinterpretation of CBC data. Current Interpretive Data was last revised on 2017. Basophil pct 0.8 % [facility] Comment: Interpretive Data Percent cell count reference ranges are not reported, since discordance with absolute values may lead to misinterpretation of CBC data. Current Interpretive Data was last revised on 2017. Blood 09/13/2024 11:5 0 AM CDT 09/13/2024 11:54 AM CDT Adria Dominguez MD LAB BLOOD ORDERABLES Final Result DENNIS [address] [facility] [place] [address] * (ABNORMAL) Pro B-type natriuretic peptide (09/13/2024 11:50 AM CDT) NT-proBNP 23,918(H) <=300 pg/mL Comment: Interpretive Comments: A. Dyspnea in Acute Care Setting All Ages: < 300 pg/ml, acute heart failure unlikely. < 50 yrs: 300 - 450 pg/ml, further investigation warranted. > 450 pg/ml, acute heart failure likely. 50 - 74 yrs: 300 - 900 pg/ml, further investigation warranted. > 900 pg/ml, acute heart failure likely . > or = 75 yrs: 450 - 1800 pg/ml, further investigation warranted. > 1800 pg/ml, acute heart failure likely. B. Non-acute Setting < 75 yrs < 125 pg/ml, rules out heart failure. > or = 125 pg/ml, further investigation warranted. > or = 75 yrs < 450 pg/ml, rules out heart failure. > or = 450 pg/ml, further investigation warranted. - Knowledge of each individual patient's NT-proBNP range may be more useful than using similar cut-points for every patient. Please note that marked elevations in NT-proBNP levels may be observed in state other than Left Ventricular Congestive Failure, including: acute coronary syndromes, right heart strain/failure (including pulmonary embolism and cor pulmonale), critical illness, renal failure, as well as advanced age. - References: 1. Izabella MICHAEL et.al. Eur Heart J. 2006:27:330-337. 2. Thomas TRUONG, Magnus LEBLANC. J. AM Castro Cardiol: Cardiovasc Imag. 2009;2: 216- 225. Interpretive Data Last Revised Date: 2017. Blood 09/13/2024 11:5 0 AM CDT 09/13/2024 11:54 AM CDT us Adria Dominguez MD LAB BLOOD ORDERABLES Final Result [place] [id number] [facility] [place] [address] * (ABNORMAL) CBC with auto differential (09/13/2024 11:50 AM CDT) WBC 10.54(H) 3.80 - 9.90 K/cumm Hgb 8.3(L) 11.9 - 15.5 g/dL [facility] Hct 27.2(L) 35.6 - 45.5 % [facility] Plt 287 150 - 400 K/cumm [facility] MPV 9.8 9.1 - 12.3 fL [facility] RBC 3.26(L) 3.90 - 5.20 M/cumm [facility] MCV 83.4 81.3 - 96.4 fL [facility] MCH 25.5(L) 27.1 - 33.3 pg [facility] MCHC 30.5(L) 32.3 - 35.7 g/dL [facility] RDW CV 16.2(H) 11.1 - 14.9 % [facility] RDW SD 49.4(H) 35.7 - 48.1 fL [facility] NRBC abs 0.00 0.00 - 0.01 K/cumm [facility] Blood 09/13/2024 11:5 0 AM CDT 09/13/2024 11:54 AM CDT Adria Dominguez MD LAB BLOOD ORDERABLES Final Result [place] [address] [facility] [place] [address] * (ABNORMAL) Comprehensive metabolic panel (09/13/2024 11:50 AM CDT) Pathologist [facility] Sodium 140 135 - 145 mmol/L Potassium, pl 4.6 3.3 - 4.9 mmol/L [facility] Chloride 103 97 - 110 mmol/L [facility] CO2 25 22 - 32 mmol/L [facility] Anion gap 12 2 - 15 mmol/L [facility] BUN 48(H) 6 - 25 mg/dL [facility] Creatinine 12.70(H) 0.60 - 1.10 mg/dL [facility] Glucose 216(H) 70 - 199 mg/dL [facility] [...] interpretive data was last revised 2022. Calcium 8.9 8.5 - 10.3 mg/dL [facility] Bilirubin, total 0.2 0.1 - 1.2 mg/dL [facility] Protein, pl 6.4(L) 6.5 - 8.5 g/dL [facility] Albumin 2.8(L) 3.5 - 5.0 g/dL [facility] Alk phos 274(H) 40 - 130 Units/L [facility] ALT 31 7 - 45 Units/L [facility] AST 30 10 - 45 Units/L [facility] Blood 09/13/2024 11:5 0 AM CDT 09/13/2024 11:54 AM CDT us Adria Dominguez MD LAB BLOOD ORDERABLES Final Result DENNIS [address] [facility] [place] [address] * HLA Virtual Crossmatch Recipient Report (09/12/2024 2:08 AM CDT) us Jim Garza MD PhD LAB BLOOD ORDERABLES Vicki l Result * HLA Antibody Screen by PRA or SAB per Schedule (Class I and Class II) (08/23/2024 10:00 AM CDT) Blood 08/23/2024 10:0 0 AM CDT Narrative [facility] - TRANSITIONS MANAGER Sample received in lab and stored. No testing performed at this time. us Miriam Garner MD LAB BLOOD ORDERAB LES Final Result [facility] * Lipid panel (06/21/2024 7:20 PM CDT) Cholesterol 138 30 - 199 mg/dL Comment: Interpretive Data Ages < or = [...] Data was last revised on 2017. Triglycerides 112 <=149 mg/dL [facility] Comment: Interpretive Data Ages < or = [...] Data was last revised on 2017. HDL 56 >=40 mg/dL [facility] Comment: Interpretive Data Ages < or = [...] was last revised on 2017. LDL, calculated 62 <=129 mg/dL [facility] Comment: Interpretive Data Ages < or = 19 years Acceptable: <110 mg/dL Borderline high: 110-129 mg/dL High: >or= 130 mg/dL Ages > or = 20 years Optimal: <100 mg/dL Near optimal: 100-129 mg/dL Borderline high: 130-159 mg/dL High: >160 mg/dL Calculated using the Shawn LDL-C estimating equation. This equation was implemented on 2023. Prior to this date LDL-C was estimated using the Friedewald equation. Literature References: 1. Expert Panel on Integrated Guidelines for Cardiovascular Health and Risk Reduction in Children and Adolescents. Pediatrics 2011;128:S213 2. NCEP Expert Panel. Circulation 2004;110:227 3. Shawn Vera et al. DENISE Cardiol. 2020 June 23;5(5):540-548. doi: 10.1001/jamacardio.2020.0013 Current Interpretive Data was last revised on 2023. Non-HDL Cholesterol 82 mg/dL [facility]NIS [facility] Comment: Interpretive Data Ages < or = [...] last revised on 2017. Chol/HDL ratio 2 [facility] Blood 06/21/2024 7:20 PM CDT 06/21/2024 7:40 PM CDT Narrative [facility] - 06/22/2024 8:42 AM CDT Reflex us Brandan Orr MD LAB BLOOD ORDERABLES Vicki l Result Performing Organization Address City/[facility] Co de Phone Number [facility] Department [place] [address] * Hepatitis C antibody Blood (02/16/2024 11:34 AM TRANSITIONS MANAGER) Hep C Ab Nonreactive Nonreactive Comment:Antibodies to HCV no t detected. Does NOT exclude the possibility of recent exposure to HCV. Current interpretive data was last revised on 21 Blood 02/16/2024 11:3 4 AM TRANSITIONS MANAGER 02/16/2024 11:45 AM TRANSITIONS MANAGER us Tonya Hammonds MD LAB MICROBIOLOGY - GENERAL ORDERABLES Final Result Performing Organization Address City/[facility] Co de Phone Number [facility] Department [place] [address] * Colonoscopy (07/21/2023 10:23 AM CDT) Anatomical [...] The scope was passed under direct vision.The [id number] Colonoscope was introducedthrough the anus and advanced to the the cecum, identifiedby appendiceal orifice and ileocecal valve. The colonoscopy was performed without difficulty. The patient tolerated the procedure well. The qualityof the bowel preparation was evaluated using the BBPS (Varney Bowel Preparation Scale) with scores of:Right Colon [...] On: 07/21/2023 10:23 AM Recognized by the [employer] for promoting quality in endoscopy Haritha Stover MD ENDOSCOPY PROCEDURES Final Res ult * HM MAMMOGRAPHY (06/04/2021) Impressions Rashida Schneider - 06/04/2021 IMPRESSION: 1. Benign mammogram. READ BY: NINO BAJWA MD 06/05/2021 [place] Provider HEALTH MAINTENANCE Final Result from Last 3 Months or Most Recently Relevant to Health Maintenance
--- OUTSIDE RECORDS SUMMARY | 2024-11-07 04:20 | XMS_ITS | Clinical Summary ---
Author Organization [facility] Address [address] [place] [id number] Phone Care Team Providers Care [employer] Name Role Phone Jessie Dickson MD Primary Care Provider [phone] Allergies Active Allergy Reactions Criticality Noted Date [...] times daily. 9 Active ergocalciferol (VITAMIN D2) 68905 units capsule TK 1 C PO Q [...] the skin Active Blood Glucose Monitoring Suppl (Rapid7 Verio Flex System) w/Device kit USE DIRECTED [...] Date Last Done Comments Influenza Vaccine (#1) 2024 Insurance MEDICAID - [place] MEDICARE Care Teams [employer] Relationship Specialty Start Date End Date Jessie Dickson MD [facility] [address], [place] [address] PCP - General 05/31/18
--- OUTSIDE RECORDS SUMMARY | 2024-11-07 04:21 | XMS_ITS | Clinical Summary ---
Author Organization [facility] Office Center Address [address] [place] [address] Care Team Providers Care Dispatcher Chief Oil Name Role Phone Almita Rizzo RN Unavailable [phone] Beth Fernandez MD Unavailable [phone] Maday Oviedo MD Unavailable [phone] Tomasz Scott DO Unavailable [phone] Meir Nazario MD Unavailable [phone] Sulema Lennon NP Primary Care Provider [phone] Allergies Active Allergy Reactions Criticality Noted Date [...] hours as needed for pain 30 tablet 09/16/19 25 Active doxazosin (CARDURA) 2 mg tablet Take 1 tablet (2 mg total) by mouth nightly 30 tablet 09/16/19 25 2025 Active sevelamer (RENVELA) 800 mg tabletIndications:Re nal Osteodystrophy with Hyperphosphatemia Take 1 tablet (800 mg total) by mouth 3 (three) times a day with meals 90 tablet 09/16/192025 Active HYDROcodone-acetamin ophen (NORCO) 5-325 mg per [...] (04/10/2022): Added automatically from request for surgery [id number] Hypertension 2021 ESRD (end stage renal disease) [...] Encounters Date Type Department Care Team Description 11/04/2024 Telephone [facility] Transplant Kidney [address] [facility] [address] Mailstop [phone] [place] [address] Almita Rizzo RN Waitlist Maintenance 10/25/2024 E-Consult [facility] [address] [facility] 3rd [place] [address] Jonathan Brennan MD PhD ESRD (end stage renal disease) (Primary Dx); Pre-transplant evaluation for kidney transplant 10/21/2024 Documentation [facility] Transplant Kidney [address] [facility] [address] Mail[address] [phone] [place] [address] Vanda Bruce 10/21/2024 Documentation [facility] Transplant Kidney [address] [facility] [address] Mailstop [phone] [place] [address] Almita Rizzo RN Waitlist Status Update (ON HOLD) 10/21/2024 Telephone [facility] Transplant Kidney [address] [facility] [address] Mailstop 72-52-604 [place] [address] Val Umaña, DELFINO After Hours; Transplant Organ Offer 10/20/2024 Orders Only [facility] [address] [place] [address] Sherwin Bhat MD Awaiting organ transplant status 10/20/2024 Orders Only [facility] Transplant Kidney [address] [facility] [address] Mailstop 67-54-730 [place] [address] Regina Hernandez RN Awaiting organ transplant status (Primary Dx) 10/20/2024 Documentation [facility] [address] [place] [address] Clayton Robles MD Transfer Notification 10/19/2024 Orders Only [facility] [address] [facility] 12th [place] [address] [place] [address] Sherwin Bhat MD 10/18/2024 Documentation [facility] Transplant Kidney [address] [facility] [address] Mailstop [phone] [place] [address] Almita Rizzo RN Waitlist Maintenance 10/06/2024 4:32 PM CDT - 10/06/2024 9:26 PM CDT Emergency [address] [address] Stevie Briggs DO Inguinal strain, right, initial encounter (Primary Dx); Pain of right hand; Secondary hypertension Discharge Disposition: Discharge to home or self care 09/26/2024 10:00 AM CDT - 09/26/2024 11:59 PM CDT Hospital Encounter [address] [address] Pre-kidney transplant, patient on transplant list; ESRD (end stage renal disease) Discharge Disposition: Discharge to home or self care 09/13/2024 12:51 PM CDT - 09/15/2024 2:00 PM CDT Hospital Encounter [address] [address] Adria Dominguez MD Medavaram, Atul, MD Kruse, Brandon Chase, Hypertensive urgency (Primary Dx); ESRD on peritoneal dialysis (HCC); Troponin level elevated; Chronic anemia; ESRD (end stage renal disease) on dialysis (HCC) [N18.6, Z99.2] Discharge Disposition: Discharge to home or self care 09/12/2024 Orders Only [facility] Medicine Surgery [address] [facility] 12th [place] [address] [place] [id number] Jim Garza MD PhD 08/23/2024 10:00 AM CDT - 08/23/2024 11:59 PM CDT Hospital Encounter [address] [address] Pre-kidney transplant, patient on transplant list; ESRD (end stage renal disease) (HCC) Discharge Disposition: Discharge to home or self care from Last 3 Months Immunizations Immunization Administration Dates Next Due Hep B Vaccine 2023,10/06/2022,04/18/2021 Influenza, Mdck, Trivalent, Contains Preservative (MDV) 11/27/2023 Influenza, Quadrivalent, Spl it, Intramuscular 02/03/2023,12/27/2021 PPD TEST 09/26/2024,05/25/2023,07/30/2022 Pneumococcal Conjugate 7-Valent 03/03/2018 Pneumococcal Conjugate PCV 13 04/18/2021 Pneumococcal Conjugate Pcv20 2023 Pneumococcal Polysaccharide PPV23 07/09/2017 Pneumococcal, Unspecified 04/18/2021 Tdap 07/09/2017 Surgical History Surgery Date Site/Laterality Comments SECTION 1994,1995,2002 CHOLECYSTECTOMY 02/23/2017 - 02/22/2018 APPENDECTOMY 02/23/2017 - 02/22/2018 OOPHORECTOMY 02/23/2017 - 02/22/2018 Right TUBAL LIGATION 02/23/2005 - 02/22/2006 AV FISTULA PLACEMENT 02/06/2020 AV FISTULA PLACEMENT 05/08/2022 Medical History Medical History Date Comments Type 2 diabetes mellitus 09/17/2012 Stage 5 chronic kidney disease on [...] Tobacco: Never Tobacco Cessation:Counseling Given: Not Answered [facility] Utilities Answer Date Recorded In the past 12 months has [employer], gas, oil, or water [employer] threatened to shut off services in your [...] 09/14/2024 How often do you attend chur or synagogue services? More than 4 times per year 09/14/2024 Do you belong to any clubs o r organizations such as buddhist groups, unions, fraternal or athletic groups, or [...] any time in the past 12 m [facility], were you homeless or living in a residential (including now)? No 09/14/2024 Personal Safety Answer Date Recorded Have you ever been in or are you currently in a harmful physical or emotional relationship or is someone making you feel afraid or unsafe? Denies 10/06/2024 Comments No Sex and Gender Information Value Date Recorded Sex Assigned at Not on file Legal Sex Female 11:50 PM EXPORT CLERK Gender Identity Not on file Sexual [...] Mass Index 37.64 09/13/2024 9:09 PM CDT Plan of Treatment Health Maintenance Due Date Last Done Comments Albumin Creatinine Ratio, Urine 1978 Cervical Cancer Screening 1978 Depression Screening 1978 Foot Exam 1978 Regular Well Visit/Exam 18-64 1996 Breast Cancer Screening-Mammogram 03/19/2024 03/19/2023, 03/17/2023, 06/04/2021 Influenza Vaccine (#1) 2024 , 02/03/2023, 12/27/2021 Hemoglobin A1C 03/17/2025 09/14/2024, 04/3 , 06/21/2024, Additional history exists Lipid Panel 06/21/2025 06/21/2024, 03/0 09/2021, 05/22/2018 Dilated Eye Exam 06/22/2025 06/22/2024 eGFR 10/06/2025 10/06/2024, 07/2 05/2024, 09/14/2024, Additional history exists DTaP/Tdap/Td Vaccine (2 - Td or Tdap) 07/10/2027 07/09/2017 Colon Cancer Screening-Colonoscopy 07/20/2033 07/21/2023 Pneumococcal vaccine <65 Completed 024, 04/18/2021, 04/18/2021, Additional history exists Hepatitis C Screening Completed 02/16/2024 , 01/30/2023, 04/30/2021 Hepatitis B Screening Completed 09/14/2024 , 2023, 10/06/2022, Additional history exists HPV Vaccines Aged Out No longer eligi ble based on patient's age to complete this topic Medical Devices Implanted Type Area Barrel Rifler Operator Device Identifier Shelf Expiration Date Model / Serial / Lot [employer] [id number] Sizerock 15fr 62cm 2 Cuff Radiopaque Peritoneal Curl Catheter - Sn/A - [id number] Implanted:Qty : 1 on 03/14/2021 by Gildardo Leggett MD at [facility] Catheter N/A: Abdomen [employer] 07/01/2025 [id number] / N/A / [id number] Description:Peritoneal Dialy sis Catheter, Curl Cath, 2 Cuffs Graft Vasc 45cm 4-6mm Wendell Acuseal Eptfe 3 Layer Kink Rst - [id number] - [id number] Implanted:Qty : 1 on 05/08/2022 by Uche Katz MD at [facility] Graft Left: Arm [employer]l [employer] [id number] 05/21/2024 [id number] / [id number] / 00 Procedures Procedure Name Priority Date/Time [...] DEVICE Routine 09/13/2024 9 :24 PM CDT ME CRITICAL CARE ILL/INJURED PATIENT INIT 30-74 MIN [...] HEPATITIS C ANTIBODY Routine 02/16/2024 11:34 AM EXPORT CLERK Pre-kidney transplant, patient on transplant list ESRD (end stage renal disease) (HCC) COLONOSCOPY 07/21/2023 10:23 AM CDT HM MAMMOGRAPHY Routine 06/04/2021 from Last 3 Months or Most Recently Relevant to Health Maintenance Results * HLA Virtual Crossmatch Recipient Report (10/19/2024 1:10 PM CDT) Sherwin Bhat MD LAB BLOOD ORDERABLES F [...] signed by Albert ORNELAS T: Report ID: [id number] Reading Location: [id number] Procedure Note Albert Lopes MD - 10/06/2024 [...] signed by Albert ORNELAS T: Report ID: [id number] Reading Location: [id number] Jackie RAPHAEL Thea XR PROCEDURES Final Resul t * XR [...] signed by Albert ORNELAS T: Report ID: [id number] Reading Location: [id number] Procedure Note Albert Lopes MD - 10/06/2024 [...] signed by Albert ORNELAS T: Report ID: [id number] Reading Location: [id number] Jackie RAPHAEL IMG XR PROCEDURES Final Resul t * (ABNORMAL) eGFR (10/06/2024 2:27 PM CDT) [facility] eGFR 3(L) >=60 mL/min/1. 73 m2 [...] LAB BLOOD ORDERABLES Final Re sult DENNIS [address] [facility] Department [place] [address] * Differential, auto (10/06/2024 2:27 PM CDT) [facility] Neutrophil abs 6.30 1.50 - 6.50 K/cumm Imm gran abs 0.04 0.00 - 0.10 K/cumm [facility] Lymphocyte abs 2.11 0.80 - 3.30 K/cumm [facility] Monocyte abs 0.68 0.20 - 0.80 K/cumm [facility] Eosinophil abs 0.45 0.00 - 0.50 K/cumm [facility] Basophil abs 0.05 0.00 - 0.10 K/cumm [facility] Neutrophil pct 65.4 % [facility] Comment: Interpretive Data Percent cell count reference ranges are not reported, since discordance with absolute values may lead to misinterpretation of CBC data. Current Interpretive Data was last revised on 2017. Imm gran pct 0.4 % [facility] Comment: Interpretive Data Percent cell count reference ranges are not reported, since discordance with absolute values may lead to misinterpretation of CBC data. Current Interpretive Data was last revised on 2017. Lymphocyte pct 21.9 % [facility] Comment: Interpretive Data Percent cell count reference ranges are not reported, since discordance with absolute values may lead to misinterpretation of CBC data. Current Interpretive Data was last revised on 2017. Monocyte pct 7.1 % [facility] Comment: Interpretive Data Percent cell count reference ranges are not reported, since discordance with absolute values may lead to misinterpretation of CBC data. Current Interpretive Data was last revised on 2017. Eosinophil pct 4.7 % [facility] Comment: Interpretive Data Percent cell count reference ranges are not reported, since discordance with absolute values may lead to misinterpretation of CBC data. Current Interpretive Data was last revised on 2017. Basophil pct 0.5 % [facility] Comment: Interpretive Data Percent cell count reference ranges are not reported, since discordance with absolute values may lead to misinterpretation of CBC data. Current Interpretive Data was last revised on 2017. Blood 10/06/2024 2:27 PM CDT 10/06/2024 2:30 PM CDT us Jackie RAPHAEL LAB BLOOD ORDERABLES Final Re sult [facility] [address] [facility] Department of Laboratories [place], [place] [id number] * (ABNORMAL) CBC with auto differential (10/06/2024 2:27 PM CDT) WBC 9.63 3.80 - 9.90 K/cumm Hgb 7.5(L) 11.9 - 15.5 g/dL [facility] Hct 24.4(L) 35.6 - 45.5 % [facility] Plt 218 150 - 400 K/cumm [facility] MPV 10.6 9.1 - 12.3 fL [facility] RBC 2.93(L) 3.90 - 5.20 M/cumm [facility] MCV 83.3 81.3 - 96.4 fL [facility] MCH 25.6(L) 27.1 - 33.3 pg [facility] MCHC 30.7(L) 32.3 - 35.7 g/dL [facility] RDW CV 16.9(H) 11.1 - 14.9 % [facility] RDW SD 50.4(H) 35.7 - 48.1 fL [facility] NRBC abs 0.00 0.00 - 0.01 K/cumm [facility] Blood 10/06/2024 2:27 PM CDT 10/06/2024 2:30 PM CDT us Jackie RAPHAEL LAB BLOOD ORDERABLES Final Re sult [facility] [address] [facility] Department [place] [address] * (ABNORMAL) Comprehensive metabolic panel (10/06/2024 2:27 PM CDT) Sodium 138 135 - 145 mmol/L Potassium, pl 4.1 3.3 - 4.9 mmol/L [facility] Chloride 99 97 - 110 mmol/L [facility] CO2 24 22 - 32 mmol/L [facility] Anion gap 15 2 - 15 mmol/L [facility] BUN 49(H) 6 - 25 mg/dL [facility] Creatinine 14.10(H) 0.60 - 1.10 mg/dL [facility] Glucose 248(H) 70 - 199 mg/dL [facility] Comment: Interpretive Data Fasting glucose >/= [...] 2022. Calcium 8.6 8.5 - 10.3 mg/dL [facility] Bilirubin, total 0.2 0.1 - 1.2 mg/dL [facility] Protein, pl 6.4(L) 6.5 - 8.5 g/dL [facility] Albumin 2.8(L) 3.5 - 5.0 g/dL [facility] Alk phos 321(H) 40 - 130 Units/L [facility] ALT 55(H) 7 - 45 Units/L [facility] AST 39 10 - 45 Units/L [facility] Blood 10/06/2024 2:27 PM CDT 10/06/2024 2:30 PM CDT Jackie RAPHAEL LAB BLOOD ORDERABLES Final Re sult Performing Organization Address City/[facility] Co de Phone Number DENNIS [address] [facility] Department [place] [address] * HLA Crossmatch Report (09/26/2024 10:00 AM CDT) Sherwin Bhat MD LAB BLOOD ORDERABLES F inal Result * HLA Crossmatch, ALLO (09/26/2024 10:00 AM CDT) Blood 09/26/2024 10:0 0 AM CDT 10/21/2024 7:55 AM CDT Narrative HISTOTRAC - 10/21/2024 7:55 AM CDT Sherwin Bhat MD LAB BLOOD ORDERABLES F inal Result Performing Organization Address City/[facility]/ZIP Co de Phone Number HISTOTRAC * HLA Antibody Screen by PRA or SAB per Schedule (Class I and Class II) (09/26/2024 10:00 AM CDT) Blood 09/26/2024 10:0 0 AM CDT Narrative HISTOTRAC - EXPORT CLERK Sample received in lab. Single Antigen [...] and validated by the [facility] laboratory based on an FDA-approved IVD kit (Smart Cubecreen Single-Antigen, [employer], [facility] [place]). All patient serum samples are pretreated with EDTA before the screen to prevent complement interference. Additional serum treatments, such as adsorption and DTT treatment, may be performed as indicated. Interpretive comments: Low risk: MFI [id number]. Moderate risk: MFI [id number]. Increased risk: MFI >/= 5000. The presence [...] antigens to avoid. Testing performed at the [facility], [facility], 5th floor, [place], [address]. CLIA # [id number]. Amber Berry, Ph.D., Stamping Die Maker, HLA Laboratory Jonathan Brennan M.D., Ph.D., Butadiene Compressor Operator, HLA Laboratory Rehana Alarcon, Ph.D., CLIA Butadiene Compressor Operator, [facility] Current methodology and interpretive comments last revised on 03/20/2022. us Miriam Garner MD LAB BLOOD ORDERAB LES Final Result Performing Organization Address City/[facility] Co de Phone Number HISTOTRAC * POCT glucose (09/15/2024 11:26 AM CDT) Glucose, POC 128 70 - 199 mg/dL Glucose comment 1 RN/MD Notified [facility] Blood 09/15/2024 11:2 6 AM CDT 09/15/2024 11:26 AM CDT Jonnathan Mojica DO LAB POCT ORDERABLES - DEV ICE Final Result Performing Organization Address [facility] Co de Phone Number [address] [place] [address] * POCT glucose (09/15/2024 7:41 AM CDT) Pathologist [facility] Glucose, POC 88 70 - 199 mg/dL Glucose comment 1 Use This Result [facility] Glucose comment 2 RN/MD Notified DENNIS Blood 09/15/2024 7:41 AM CDT 09/15/2024 7:41 AM CDT us Jonnathan Mojica DO LAB POCT ORDERABLES - DEV ICE Final Result Performing Organization Address [facility] Co de Phone Number [address] [address] * (ABNORMAL) eGFR (09/15/2024 5:03 AM CDT) Pathologist [facility] eGFR 3(L) >=60 mL/min/1. 73 m2 Comment: [...] DO LAB BLOOD ORDERABLES Vicki l Result [place] [address] [facility] Department [place] [address] * Differential, auto (09/15/2024 5:03 AM CDT) Pathologist [facility] Neutrophil abs 4.75 1.50 - 6.50 K/cumm Imm gran abs 0.03 0.00 - 0.10 K/cumm [facility] Lymphocyte abs 2.41 0.80 - 3.30 K/cumm [facility] Monocyte abs 0.57 0.20 - 0.80 K/cumm [facility] Eosinophil abs 0.43 0.00 - 0.50 K/cumm [facility] Basophil abs 0.04 0.00 - 0.10 K/cumm [facility] Neutrophil pct 57.7 % [facility] Comment: Interpretive Data Percent cell count reference ranges are not reported, since discordance with absolute values may lead to misinterpretation of CBC data. Current Interpretive Data was last revised on 2017. Imm gran pct 0.4 % [facility] Comment: Interpretive Data Percent cell count reference ranges are not reported, since discordance with absolute values may lead to misinterpretation of CBC data. Current Interpretive Data was last revised on 2017. Lymphocyte pct 29.3 % [facility] Comment: Interpretive Data Percent cell count reference ranges are not reported, since discordance with absolute values may lead to misinterpretation of CBC data. Current Interpretive Data was last revised on 2017. Monocyte pct 6.9 % [facility] Comment: Interpretive Data Percent cell count reference ranges are not reported, since discordance with absolute values may lead to misinterpretation of CBC data. Current Interpretive Data was last revised on 2017. Eosinophil pct 5.2 % [facility] Comment: Interpretive Data Percent cell count reference ranges are not reported, since discordance with absolute values may lead to misinterpretation of CBC data. Current Interpretive Data was last revised on 2017. Basophil pct 0.5 % [facility] Comment: Interpretive Data Percent cell count reference ranges are not reported, since discordance with absolute values may lead to misinterpretation of CBC data. Current Interpretive Data was last revised on 2017. Blood 09/15/2024 5:03 AM CDT 09/15/2024 5:25 AM CDT us Jonnathan Mojica DO LAB BLOOD ORDERABLES Vicki l Result [facility] [address] [facility] Department [place] [address] * (ABNORMAL) CBC with auto differential (09/15/2024 5:03 AM CDT) WBC 8.23 3.80 - 9.90 K/cumm Hgb 7.4(L) 11.9 - 15.5 g/dL [facility] Hct 24.4(L) 35.6 - 45.5 % [facility] Plt 269 150 - 400 K/cumm [facility] MPV 9.6 9.1 - 12.3 fL [facility] RBC 2.93(L) 3.90 - 5.20 M/cumm [facility] MCV 83.3 81.3 - 96.4 fL [facility] MCH 25.3(L) 27.1 - 33.3 pg [facility] MCHC 30.3(L) 32.3 - 35.7 g/dL [facility] RDW CV 16.1(H) 11.1 - 14.9 % [facility] RDW SD 48.9(H) 35.7 - 48.1 fL [facility] NRBC abs 0.00 0.00 - 0.01 K/cumm [facility] Blood 09/15/2024 5:03 AM CDT 09/15/2024 5:25 AM CDT [employer] DO LAB BLOOD ORDERABLES Vicki l Result Performing Organization Address City/[facility]/ZIP Co de Phone Number [address] [place] [address] * (ABNORMAL) Erythrocyte sedimentation rate (09/15/2024 5:03 AM CDT) [facility] Erythrocyte sedimentation rate 52(H) 1 - 20 mm/hr Blood 09/15/2024 5:03 AM CDT 09/15/2024 5:25 AM CDT [employer] LAB BLOOD ORDERABLES Vicki l Result Performing Organization Address [facility] Co de Phone Number [address] [place] [address] * (ABNORMAL) CRP (acute phase) (09/15/2024 5:03 AM CDT) [facility] CRP 12.1(H) <=10.0 mg/L Blood 09/15/2024 5:03 AM CDT 09/15/2024 5:25 AM CDT [employer] DO LAB BLOOD ORDERABLES Vicki l Result Performing Organization Address [facility] Co de Phone Number [address] [place] [address] * (ABNORMAL) Phosphorus (09/15/2024 5:03 AM CDT) Phosphorus, pl 6.8(H) 2.3 - 4.5 mg/dL Blood 09/15/2024 5:03 AM CDT 09/15/2024 5:25 AM CDT us Herbert Dahl MD LAB BLOOD ORDERABLES Final Res ult Performing Organization Address City/[facility] Co de Phone Number [address] [address] * Magnesium (09/15/2024 5:03 AM CDT) [facility] Magnesium 1.9 1.4 - 2.5 mg/dL Blood 09/15/2024 5:03 AM CDT 09/15/2024 5:25 AM CDT us Herbert Dahl MD LAB BLOOD ORDERABLES Final Res ult Performing Organization Address [facility] de Phone Number [address] [address] * (ABNORMAL) Basic metabolic panel (09/15/2024 5:03 AM CDT) [facility] Sodium 138 135 - 145 mmol/L Potassium, pl 4.2 3.3 - 4.9 mmol/L [facility] Chloride 103 97 - 110 mmol/L [facility] CO2 24 22 - 32 mmol/L [facility] Anion gap 11 2 - 15 mmol/L [facility] BUN 48(H) 6 - 25 mg/dL [facility] Creatinine 13.80(H) 0.60 - 1.10 mg/dL [facility] Glucose 119 70 - 199 mg/dL [facility] Comment: Interpretive Data Fasting glucose >/= [...] 2022. Calcium 8.7 8.5 - 10.3 mg/dL [facility] Blood 09/15/2024 5:03 AM CDT 09/15/2024 5:25 AM CDT [employer] DO LAB BLOOD ORDERABLES Vicki l Result Performing Organization Address [facility]/ZIP Co de Phone Number DENNIS [address] [place] [address] * POCT glucose (09/14/2024 11:34 PM CDT) Glucose, POC 149 70 - 199 mg/dL Blood 09/14/2024 11:3 4 PM CDT 09/14/2024 11:34 PM CDT Jonnathan [employer] LAB POCT ORDERABLES - DEV ICE Final Result Performing Organization Address [facility] Co de Phone Number [address] [place] [address] * POCT glucose (09/14/2024 7:36 PM CDT) Glucose, POC 153 70 - 199 mg/dL Blood 09/14/2024 7:36 PM CDT 09/14/2024 7:36 PM CDT [employer] LAB POCT ORDERABLES - DEV ICE Final Result Performing Organization Address City/[facility] Co de Phone Number [address] [place] [address] * POCT glucose (09/14/2024 4:02 PM CDT) Glucose, POC 89 70 - 199 mg/dL Glucose comment 1 Use This Result [facility] Glucose comment 2 RN/MD Notified [facility] Blood 09/14/2024 4:02 PM CDT 09/14/2024 4:02 PM CDT raksul Galina DO LAB POCT ORDERABLES - DEV ICE Final Result Performing Organization Address [facility] Co de Phone Number DENNIS [address] [address] * POCT glucose (09/14/2024 11:36 AM CDT) Glucose, POC 108 70 - 199 mg/dL Glucose comment 1 Use This Result [facility] Glucose comment 2 RN/MD Notified [facility] Blood 09/14/2024 11:3 6 AM CDT 09/14/2024 11:36 AM CDT Jonnathantravis Daigle Galina DO LAB POCT ORDERABLES - DEV ICE Final Result Performing Organization Address [facility] Co de Phone Number DENNIS [address] [address] * (ABNORMAL) POCT glucose (09/14/2024 8:27 AM CDT) [facility] Glucose, POC 65(L) 70 - 199 mg/dL Glucose comment 1 Use This Result [facility] Glucose comment 2 RN/MD Notified [facility] Blood 09/14/2024 8:27 AM CDT 09/14/2024 8:27 AM CDT Jonnathan Samtec DO LAB POCT ORDERABLES - DEV ICE Final Result Performing Organization Address [facility] Co de Phone Number YVONNE[address] [place] [place] [address] * Hepatitis B surface antibody (immune status) Blood (09/14/2024 7:15 AM CDT) [facility] HBsAb (immune status) Reactive Comment: Interpretive [...] HBsAb (immune status) index 136.0 mIUnits/m L DENNIS Blood 09/14/2024 7:15 AM CDT 09/14/2024 7:18 AM CDT Tomer Marmolejo MD LAB MICROBIOLOGY - GENERAL OR DERABLES Final Result Performing Organization Address [facility] Co de Phone Number [address] [place] [address] * Hepatitis B Surface Antigen Blood (09/14/2024 7:15 AM CDT) HepBsAg Nonreactive Nonreactive Blood 09/14/2024 7:15 AM CDT 09/14/2024 7:18 AM CDT Tomer Marmolejo MD LAB MICROBIOLOGY - GENERAL OR DERABLES Final Result Performing Organization Address [facility] de Phone Number [address] [place] [address] * (ABNORMAL) eGFR (09/14/2024 5:21 AM CDT) eGFR 3(L) >=60 mL/min/1. 73 [...] ORDERABLES Final Res ult Performing Organization Address City/[facility]/ZIP Co de Phone Number DENNIS [address] [employer] [place] [address] * (ABNORMAL) CBC without differential (09/14/2024 5:21 AM CDT) Pathologist [facility] WBC 8.98 3.80 - 9.90 K/cumm Hgb 7.5(L) 11.9 - 15.5 g/dL [facility] Hct 24.6(L) 35.6 - 45.5 % [facility] Plt 256 150 - 400 K/cumm [facility] MPV 9.2 9.1 - 12.3 fL [facility] RBC 2.95(L) 3.90 - 5.20 M/cumm [facility] MCV 83.4 81.3 - 96.4 fL [facility] MCH 25.4(L) 27.1 - 33.3 pg [facility] MCHC 30.5(L) 32.3 - 35.7 g/dL [facility] RDW CV 16.1(H) 11.1 - 14.9 % [facility] RDW SD 48.2(H) 35.7 - 48.1 fL [facility] NRBC abs 0.00 0.00 - 0.01 K/cumm [facility] Blood 09/14/2024 5:21 AM CDT 09/14/2024 5:36 AM CDT us Herbert Dahl MD LAB BLOOD ORDERABLES Final Res ult Performing Organization Address City/[facility]/ZIP Co de Phone Number DENNIS [address] [place] [address] * (ABNORMAL) Phosphorus (09/14/2024 5:21 AM CDT) Phosphorus, pl 6.5(H) 2.3 - 4.5 mg/dL Blood 09/14/2024 5:21 AM CDT 09/14/2024 5:36 AM CDT us Herbert Dahl MD LAB BLOOD ORDERABLES Final Res ult Performing Organization Address [facility] de Phone Number [address] [place] [address] * Magnesium (09/14/2024 5:21 AM CDT) [facility] Magnesium 2.0 1.4 - 2.5 mg/dL Blood 09/14/2024 5:21 AM CDT 09/14/2024 5:36 AM CDT Herbert Dahl MD LAB BLOOD ORDERABLES Final Res ult Performing Organization Address [facility] Phone Number [address] [place] [address] * (ABNORMAL) Hemoglobin A1c (09/14/2024 5:21 AM CDT) [facility] Hgb A1C 6.2(H) 4.0 - 5.6 % Estimated Average Glucose 131 mg/dL DENNIS Comment: The ADA recommends reporting an estimated Average Glucose (eAG) with all Hemoglobin A1c results using the equation derived from a study of 507 normal and diabetic adults. Minority populations were underrepresented and children were not included. (Diabetes Care 31:9924-2533, 2008). The eAG is not equivalent to a fasting glucose. Blood 09/14/2024 5:21 AM CDT 09/14/2024 5:36 AM CDT us Jonnathan Mojica DO LAB BLOOD ORDERABLES Vicki l Result Performing Organization Address [facility] Co de Phone Number [address] [place] [address] * Vancomycin level random (09/14/2024 5:21 AM CDT) Vancomycin random 34.6 mcg/mL Comment: Interpretive Data No reference ranges have been established for random drug levels. Current Interpretive Data was last revised on 2020. Blood 09/14/2024 5:21 AM CDT 09/14/2024 5:36 AM CDT Herbert Dahl MD LAB BLOOD ORDERABLES Final Res ult [facility] [address] [facility] Department [place] [address] * (ABNORMAL) Basic metabolic panel (09/14/2024 5:21 AM CDT) Pathologist [facility] Sodium 140 135 - 145 mmol/L Potassium, pl 4.4 3.3 - 4.9 mmol/L [facility] Comment:Hemolyzed; Potassium value may be falsely elevated by as much as 1.0 mmol/L. Suggest redraw and reanalysis. Chloride 106 97 - 110 mmol/L [facility] CO2 23 22 - 32 mmol/L [facility] Anion gap 11 2 - 15 mmol/L [facility] BUN 49(H) 6 - 25 mg/dL [facility] Creatinine 13.70(H) 0.60 - 1.10 mg/dL [facility] Glucose 90 70 - 199 mg/dL [facility] Comment: Delta - Results Reviewed Interpretive Data [...] 2022. Calcium 8.8 8.5 - 10.3 mg/dL [facility] Blood 09/14/2024 5:21 AM CDT 09/14/2024 5:36 AM CDT us Herbert Dahl MD LAB BLOOD ORDERABLES Final Res ult DENNIS [address] [facility] Department [place] [address] * CT Hand Right WO Contrast (09/14/2024 2:34 AM CDT) Anatomical Region Laterality Modality Upper Extremities Right Computed Tomog thiago 09/14/2024 9:19 AM CDT Narrative 09/14/2024 9:48 AM CDT EXAM DESCRIPTION: CT HAND RIGHT WO CONTRAST REASON FOR STUDY: Soft tissue infection suspected, hand, xray done C/o right hand pain. Was in ED after hypoglycemic event at [employer], She states that upon waking up in [...] 9:48 AM - Electronically signed by Nick SCHMID T: Report ID: [id number] Reading Location: [id number] Procedure Note Nick Miller MD - 09/14/2024 EXAM DESCRIPTION: CT HAND RIGHT WO CONTRAST REASON FOR STUDY: Soft tissue infection suspected, hand, xray done C/o right hand pain. Was in ED after hypoglycemic event at [employer],She states that upon waking up in the [...] Nick Miller M.D. MJ T: Report ID: [id number] Reading Location: [id number] Herbert Dahl MD IMG CT PROCEDURES Final Result * POCT glucose (09/14/2024 1:31 AM CDT) Glucose, POC 94 70 - 199 mg/dL Blood 09/14/2024 1:31 AM CDT 09/14/2024 1:31 AM CDT Herbert Dahl MD LAB POCT ORDERABLES - DEVICE F inal Result DENNIS [address] [facility] Department [place] [address] * Blood culture Blood (09/13/2024 11:28 PM CDT) Report Final Report: No growth Comment:Testing performed by : [facility], [address] [facility], [place]., [address] Blood 09/13/2024 11:2 8 PM CDT 09/14/2024 5:06 AM CDT Narrative DENNIS - 09/18/2024 7:01 AM CDT From a [...] performance characteristics have been verified by the [facility] Microbiology Laboratory. For questions about this culture, contact the Microbiology Laboratory at [phone]. Interpretive data was last revised on 23. Herbert Dahl MD LAB MICROBIOLOGY - GENERAL ORD ERABLES Final Result DENNIS [address] [facility] Department [place] [address] * Blood culture Blood (09/13/2024 11:28 PM CDT) Report Final Report: No growth Comment:Testing performed by : [facility], [address] [facility] [place]., [address] Blood 09/13/2024 11:2 8 PM CDT 09/14/2024 5:06 AM CDT [facility] DENNIS - 09/18/2024 7:01 AM CDT Collection->Peripheral 1. [...] performance characteristics have been verified by the [facility] Microbiology Laboratory. For questions about this culture, contact the Microbiology Laboratory at [phone]. Interpretive data was last revised on 23. Herbert Dahl MD LAB MICROBIOLOGY - GENERAL ORD ERABLES Final Result Performing Organization Address [facility] Co de Phone Number DENNIS [address] [place] [address] * hCG, blood, quantitative (09/13/2024 10:46 PM CDT) Pathologist [facility] hCG, quant <5.0 0.0 - 5.0 IUnits/L [...] ORDERABLES Final Res ult Performing Organization Address City/[facility]/ZIP Co de Phone Number DENNIS [address] [place] [address] [place] [address] * POCT glucose (09/13/2024 9:24 PM CDT) Glucose, POC 125 70 - 199 mg/dL Blood 09/13/2024 9:24 PM CDT 09/13/2024 9:24 PM CDT us Herbert Dahl MD LAB POCT ORDERABLES - DEVICE F inal Result DENNIS MH [address] [facility] Department [place] [address] * ME CRITICAL CARE ILL/INJURED PATIENT INIT 30-74 MIN [...] patient to a continuous cardiac monitored bed. us Adria Dominguez MD IN CLINIC/BEDSIDE ORDERABL ES Final Result * (ABNORMAL) Troponin T high-sensitivity 4-hour (09/13/2024 3:54 PM CDT) Trop T hs 354(C) <=14 ng/L Comment: Critical Result called to and read back by [id number], DATE: 2024-09-13 16:35:35 BY: [id number] Interpretive Data For further hscTnT resources including the diagnostic algorithm and an aid in interpretation, copy and paste this link: https://nrl.testcatalog.org/show/hsTrop Current Interpretive Data last revised 2020. Trop T hs pct delta -1 % DENNIS Trop T hs interp Insignificant DENNIS Blood 09/13/2024 3:54 PM CDT 09/13/2024 3:57 PM CDT Henrry Macedo MD LAB BLOOD ORDERABLES Final Resu lt Performing Organization Address [facility] Co de Phone Number [address] [address] * aPTT (09/13/2024 3:54 PM CDT) aPTT 25 22 - 37 sec Comment: Interpretive data aPTT test has not been evaluated for monitoring heparin therapy. The anti-Xa is the preferred test. Current interpretive data was last revised on 2019. Blood 09/13/2024 3:54 PM CDT 09/13/2024 3:57 PM CDT Adria Dominguez MD LAB BLOOD ORDERABLES Final Result Performing Organization Address [facility] de Phone Number [address] [address] * Protime-INR (09/13/2024 3:54 PM CDT) PT [...] was last revised on 2019. Blood 09/13/2024 3:5 4 PM CDT 09/13/2024 3:57 PM CDT Adria Dominguez MD LAB BLOOD ORDERABLES Final Result Performing Organization Address [facility] Co de Phone Number YVONNE[address] [address] * (ABNORMAL) Troponin T high-sensitivity 2-hour (09/13/2024 1:48 PM CDT) Pathologist [facility] Trop T hs 354(C) <=14 ng/L Comment: Critical Result called to and read back by [id number], DATE: 2024-09-13 14:41:09 BY: [id number] Interpretive Data For further hscTnT resources including the diagnostic algorithm and an aid in interpretation, copy and paste this link: https://nrl.testcatalog.org/show/hsTrop Current Interpretive Data last revised 2020. Trop T hs pct delta -1 % [facility] Trop T hs interp Insignificant [facility] Blood 09/13/2024 1:48 PM CDT 09/13/2024 2:03 PM CDT Henrry Macedo MD LAB BLOOD ORDERABLES Final Resu lt Performing Organization Address [facility] Co de Phone Number [place] [phone] [place] [address] * Influenza A/B, RSV, and COVID-19 PCR Nasopharyngeal (09/13/2024 1:48 PM CDT) [facility] COVID-19 RNA Negative Negative Influenza A RNA Negative Negative [facility] Influenza B RNA Negative Negative [facility] RSV RNA Negative Negative [facility] Comment: Interpretive data: Testing performed by [facility]. This test is performed using the [employer] Xpert Xpress CoV-2/Flu/RSV plus assay. This is a multiplex, real-time reverse transcriptase PCR assay intended for the qualitative detection of nucleic acid from SARS-CoV-2, influenza A, influenza B, and respiratory syncytial virus. This assay has been cleared by the [place] Food and Drug administration. The performance characteristics have been verified by the [facility]. Results must be considered in the clinical context, and a negative result does not rule out infection. Interpretive Data last revised 2023 Nasopharyngeal 09/13/2024 1: 48 PM CDT 09/13/2024 2:03 PM CDT Narrative DENNIS JOSUE - 09/13/2024 2:52 PM CDT Is the Patient experiencing symptoms consistent with COVID?->Unknown Adria Dominguez MD LAB MICROBIOLOGY - GENERAL ORDERABLES Final Result Performing Organization Address [facility] Co de Phone Number DENNIS [address] [address] * Sepsis Lactate w/ Reflex (09/13/2024 1:48 PM CDT) Sepsis Lactate 0.9 0.7 - 2.0 mmol/L Blood 09/13/2024 1:48 PM CDT 09/13/2024 2:03 PM CDT Adria Dominguez MD LAB BLOOD ORDERABLES Final Result Performing Organization Address [facility] Co de Phone Number DENNIS [address] [address] * XR Chest 1 Vw Portable (If [...] Nick Miller M.D. MJ T: Report ID: [id number] Reading Location: [place] [address] Procedure Note Nick Miller MD - 09/13/2024 [...] 12:36 PM - Electronically signed by Nick SCHMID T: Report ID: [id number] Reading Location: [id number] us Adria Dominguez MD IMG XR PROCEDURES Final Re sult * XR Hand Right 3 or More Views (09/13/2024 12:24 PM CDT) Anatomical Region Laterality Modality Upper Extremities, Hand Right Computed Radiography 09/13/2024 12:3 4 PM CDT Narrative 09/13/2024 12:35 PM CDT EXAM DESCRIPTION: XR HAND RIGHT 3 OR MORE VIEWS REASON FOR STUDY: Pain. Pt presents to ED for SOB since 010 this morning Endorses: shortness of breath at [...] signed by Nick SCHMID T: Report ID: [id number] Reading Location: [id number] Procedure Note Nick Miller MD - 09/13/2024 [...] 12:35 PM - Electronically signed by Nick Miller M.D. MJ T: Report ID: [id number] Reading Location: [place] [address] us Adria Dominguez MD IMG XR PROCEDURES Final Re sult * ECG 12 lead (09/13/2024 11:59 AM CDT) Pathologist [facility] Ventricular Rate EKG/Min 77 BPM [facility] Atrial Rate 77 BPM [facility] ME-Interval (MSEC) 142 ms [facility] QRS-Interval (MSEC) 72 ms [facility] QT-Interval (MSEC) 400 ms [facility] QTc 452 ms [facility] P [place] 60 degrees [facility] R [place] 16 degrees [facility] T [place] 102 degrees [facility] Diagnosis Normal sinus rhythm Septal infarct (cited on or before 06-APR-2024) Abnormal ECG When compared with ECG of 06-APR-2024 08:18, Nonspecific T wave abnormality now evident in Lateral leads Confirmed by TITI MONGE M.D. ([id number]) on 09/14/2024 7:54:42 AM [facility] 09/13/2024 11:5 9 AM CDT 09/14/2024 7:54 AM CDT us Adria Dominguez MD ECG ORDERABLES Final Resu lt [facility] * (ABNORMAL) Troponin T high-sensitivity series (baseline, 2hr, 4hr, 6hr) (09/13/2024 11:50 AM CDT) Trop T hs 358(C) <=14 ng/L Comment: Critical Result called to and read back by [id number], DATE: 2024-09-13 12:26:30 BY: [id number] Interpretive Data For further hscTnT resources including the diagnostic algorithm and an aid in interpretation, copy and paste this link: https://nrl.testcatalog.org/show/hsTrop Current Interpretive Data last revised 2020. Blood 09/13/2024 11:5 0 AM CDT 09/13/2024 11:54 AM CDT us Adria Dominguez MD LAB BLOOD ORDERABLES Final Result [facility] [address] [facility] Department of Laboratories [place], [place] [id number] * (ABNORMAL) eGFR (09/13/2024 11:50 AM CDT) [...] Dominguez MD LAB BLOOD ORDERABLES Final Result [facility] [address] [facility] Department [place] [address] * (ABNORMAL) Differential, auto (09/13/2024 11:50 AM CDT) Neutrophil abs 6.89(H) 1.50 - 6.50 K/cumm Imm gran abs 0.04 0.00 - 0.10 K/cumm [facility] Lymphocyte abs 2.47 0.80 - 3.30 K/cumm [facility] Monocyte abs 0.62 0.20 - 0.80 K/cumm [facility] Eosinophil abs 0.44 0.00 - 0.50 K/cumm [facility] Basophil abs 0.08 0.00 - 0.10 K/cumm [facility] Neutrophil pct 65.3 % [facility] Comment: Interpretive Data Percent cell count reference ranges are not reported, since discordance with absolute values may lead to misinterpretation of CBC data. Current Interpretive Data was last revised on 2017. Imm gran pct 0.4 % [facility] Comment: Interpretive Data Percent cell count reference ranges are not reported, since discordance with absolute values may lead to misinterpretation of CBC data. Current Interpretive Data was last revised on 2017. Lymphocyte pct 23.4 % [facility] Comment: Interpretive Data Percent cell count reference ranges are not reported, since discordance with absolute values may lead to misinterpretation of CBC data. Current Interpretive Data was last revised on 2017. Monocyte pct 5.9 % [facility] Comment: Interpretive Data Percent cell count reference ranges are not reported, since discordance with absolute values may lead to misinterpretation of CBC data. Current Interpretive Data was last revised on 2017. Eosinophil pct 4.2 % [facility] Comment: Interpretive Data Percent cell count reference ranges are not reported, since discordance with absolute values may lead to misinterpretation of CBC data. Current Interpretive Data was last revised on 2017. Basophil pct 0.8 % [facility] Comment: Interpretive Data Percent cell count reference ranges are not reported, since discordance with absolute values may lead to misinterpretation of CBC data. Current Interpretive Data was last revised on 2017. Blood 09/13/2024 11:5 0 AM CDT 09/13/2024 11:54 AM CDT us Adria Dominguez MD LAB BLOOD ORDERABLES Final Result DENNIS [address] [facility] Department [place] [address] * (ABNORMAL) Pro B-type natriuretic peptide (09/13/2024 [...] et.al. Eur Heart J. 2006:27:330-337. 2. Thomas RW, Magnus AM. J. AM Castro Cardiol: Cardiovasc Imag. 2009;2: 216- 225. Interpretive Data Last Revised Date: 2017. Blood 09/13/2024 11:5 0 AM CDT 09/13/2024 11:54 AM CDT Adria Dominguez MD LAB BLOOD ORDERABLES Final Result Performing Organization Address [facility] Co de Phone Number DENNIS [address] [employer] [place] [address] * (ABNORMAL) CBC with auto differential (09/13/2024 11:50 AM CDT) Pathologist [facility] WBC 10.54(H) 3.80 - 9.90 K/cumm Hgb 8.3(L) 11.9 - 15.5 g/dL [facility] Hct 27.2(L) 35.6 - 45.5 % [facility] Plt 287 150 - 400 K/cumm [facility] MPV 9.8 9.1 - 12.3 fL [facility] RBC 3.26(L) 3.90 - 5.20 M/cumm [facility] MCV 83.4 81.3 - 96.4 fL [facility] MCH 25.5(L) 27.1 - 33.3 pg [facility] MCHC 30.5(L) 32.3 - 35.7 g/dL [facility] RDW CV 16.2(H) 11.1 - 14.9 % [facility] RDW SD 49.4(H) 35.7 - 48.1 fL [facility] NRBC abs 0.00 0.00 - 0.01 K/cumm [facility] Blood 09/13/2024 11:5 0 AM CDT 09/13/2024 11:54 AM CDT Adria Dominguez MD LAB BLOOD ORDERABLES Final Result Performing Organization Address City/[facility]/ZIP Co de Phone Number DENNIS [address] [employer] [place] [address] * (ABNORMAL) Comprehensive metabolic panel (09/13/2024 11:50 AM CDT) Pathologist [facility] Sodium 140 135 - 145 mmol/L Potassium, pl 4.6 3.3 - 4.9 mmol/L [facility] Chloride 103 97 - 110 mmol/L [facility] CO2 25 22 - 32 mmol/L [facility] Anion gap 12 2 - 15 mmol/L [facility] BUN 48(H) 6 - 25 mg/dL [facility] Creatinine 12.70(H) 0.60 - 1.10 mg/dL [facility] Glucose 216(H) 70 - 199 mg/dL [facility] Comment: Interpretive Data Fasting glucose >/= [...] 2022. Calcium 8.9 8.5 - 10.3 mg/dL [facility] Bilirubin, total 0.2 0.1 - 1.2 mg/dL [facility] Protein, pl 6.4(L) 6.5 - 8.5 g/dL [facility] Albumin 2.8(L) 3.5 - 5.0 g/dL [facility] Alk phos 274(H) 40 - 130 Units/L [facility] ALT 31 7 - 45 Units/L [facility] AST 30 10 - 45 Units/L [facility] Blood 09/13/2024 11:5 0 AM CDT 09/13/2024 11:54 AM CDT us Adria Dominguez MD LAB BLOOD ORDERABLES Final Result [facility] [address] [facility] Department [place] [address] * HLA Virtual Crossmatch Recipient Report (09/12/2024 2:08 AM CDT) us Jim Garza MD PhD LAB BLOOD ORDERABLES Vicki l Result * HLA Antibody Screen by PRA or SAB per Schedule (Class I and Class II) (08/23/2024 10:00 AM CDT) Blood 08/23/2024 10:0 0 AM CDT Narrative HISTOTRAC - EXPORT CLERK Sample received in lab and stored. [...] on 2017. Triglycerides 112 <=149 mg/dL DENNIS [facility] Comment: Interpretive Data Ages < or = [...] on 2017. HDL 56 >=40 mg/dL DENNIS [facility] Comment: Interpretive Data Ages < or = [...] on 2017. LDL, calculated 62 <=129 mg/dL [facility] Comment: Interpretive Data Ages < or = [...] revised on 2023. Non-HDL Cholesterol 82 mg/dL [facility] Comment: Interpretive Data Ages < or = [...] on 2017. Chol/HDL ratio [address] [facility] Blood 06/21/2024 7:20 PM CDT 06/21/2024 7:40 PM CDT Narrative [facility] - 06/22/2024 8:42 AM CDT Reflex us Brandan Orr MD LAB BLOOD ORDERABLES Vicki l Result Performing Organization Address City/[facility] Co de Phone Number [facility] [place] [address] * Hepatitis C antibody Blood (02/16/2024 11:34 AM EXPORT CLERK) Hep C Ab Nonreactive Nonreactive Comment:Antibodies to HCV no t detected. Does NOT exclude the possibility of recent exposure to HCV. Current interpretive data was last revised on 21 Blood 02/16/2024 11:3 4 AM EXPORT CLERK 02/16/2024 11:45 AM EXPORT CLERK us Tonya Hammonds MD LAB MICROBIOLOGY - GENERAL ORDERABLES Final Result Performing Organization Address [facility] Co de Phone Number [facility] [place] [address] * Colonoscopy (07/21/2023 10:23 AM CDT) Anatomical Region Laterality Modality Other Narrative Procedure Note Haritha Stover MD - 07/21/2023 10:23 AM CDT [facility] Patient Name: Bakari Smith Procedure Date: 07/21/2023 10:23 AM Date of : 1980 Admit Type: Outpatient Age: 43 Gender: Female Attending MD: Haritha Stover M.D. Room: [facility] ENDOSCOPY ROOM 02 Note Status: [...] The scope was passed under direct vision.The [id number] Colonoscope was introducedthrough the anus and advanced to the the cecum, identifiedby appendiceal orifice and ileocecal valve. The colonoscopy was performed without difficulty. The patient tolerated the procedure well. The qualityof the bowel preparation was evaluated using the BBPS ([place] Bowel Preparation Scale) with scores of:Right Colon [...] On: 07/21/2023 10:23 AM Recognized by the [employer] for promoting quality in endoscopy Haritha Stover MD ENDOSCOPY PROCEDURES Final Res ult * HM MAMMOGRAPHY (06/04/2021) Impressions Rashida Schneider - 06/04/2021 IMPRESSION: 1. Benign mammogram. READ BY: NINO BAJWA MD 06/05/2021 Historical Provider HEALTH MAINTENANCE Final Result from Last 3 Months or Most Recently Relevant to Health Maintenance Insurance [employer] [facility] IDME MEDICARE MEDICARE [address] [place] [phone] MEDICARE MEDICARE Advance Directives For more information, please contact: [phone] * Full Code (Latest Code Status on File) Date Activated Date Inactivated Comments 09/13/2024 9:22 PM 09/15/2024 6:14 PM * Full Code Date Activated Date Inactivated Comments 06/22/2024 8:11 AM 06/23/2024 7:28 PM * Full Code Date Activated Date Inactivated Comments 07/21/2023 9:59 AM 07/21/2023 3:56 PM Care Teams Dispatcher Chief Oil Relationship Specialty Start Date End Date Sulema Lennon NP [address] [place], [place] [id number] PCP - General Nurse Practitioner 09/14/24 Almita Rizzo, RN [address] [place] [address] Medical Insurance Biller 04/04/21 Beth Fernandez MD [address] [place] [address] Referring Physician Nephrology 04/04/21 Maday Oviedo MD [address] [place] [address] Neurology 09/12/22 Tomasz Scott DO [address] [facility] [address] [place], [place] [id number] Medical Service Representative Cardiology 09/16/22 Meir Nazario MD [address] [facility] [address] [place], [place] [id number] Obstetrics and Gynecology 04/11/24
--- OUTSIDE RECORDS SUMMARY | 2024-11-07 04:21 | XMS_ITS ---
Author Organization [facility] Office Center Address [address] [place] [address] Care Team Providers Care Caddie Name Role Phone Almita Rizzo RN Unavailable [phone] Beth Fernandez MD Unavailable [phone] Maday Oviedo MD Unavailable [phone] Tomasz Scott DO Unavailable [phone] Meir Nazario MD Unavailable [phone] Sulema Lennon NP Primary Care Provider [phone] Transplant Episode Kidney Candidate [facility] ([place], [place]) [facility] waitlisted on 09/10/2021 Marked as Inactive on 10/21/2024 Reason: - Temporarily Too Sick Kidney CoordinatorAlmita Rizzo RN Fax: N/A Email: N/A Scores Score Value Updated Exceptions/Reas ons CPRA Not available EPTS (Calc) 56 11/07/2024 [facility] [place] 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 Mellitus - Type II Care Team Name Role Phone Fax Email Almita Rizzo RN Kidney Coordinator [phone] N/A N/A Beth Fernandez MD Referring Physician [phone] N/A Hien Mireles Residential Support Specialist [phone] N/A N/A Events Pre-Transplant Referred: 02/07/2021 Evaluation began: 04/04/2021 Committee: 09/09/2021 UNOS qualified: 01/21/2021 Center waitlisted: 09/10/2021 Dialysis History Dialysis History Start End Type Comments Center 10/20/2024 Hemo T/TH/Sat [facility] 04/23/2021 10/20/[address] Beth Fernandez [facility] 01/21/2021 04/23/2021 Hemo M/W/F [facility] Dialysis Center Information Center Phone Fax Address [facility] [phone] [place] [phone] [facility] [phone] [address]
--- OUTSIDE RECORDS SUMMARY | 2024-11-07 04:21 | XMS_ITS | Encounter Summary ---
Author Organization [facility] Healthcare Address [address] [place] [address] Care Team Providers Care Treasury Agent Name Role Phone Jessie Dickson NP Primary Care Provider [phone] Almita Rizzo RN Unavailable [phone] Beth Fernandez MD Unavailable [phone] Maday Oviedo MD Unavailable [phone] Tomasz Scott DO Unavailable [phone] Bashir Alston MD Primary Care Provider [phone] No, Physician Primary Care Provider [phone] Meir Nazario MD Unavailable [phone] Kendra Russell RN Unavailable [phone] Unknown, Notinfile Primary Care Provider Unavail able Sulema Lennon NP Primary Care Provider [phone] Reason for Visit * Reason Onset Date Comments READY TO SCHEDULE 04/28/2023 Encounter Details Date Type Department Care Team (Late st Contact Info) Description 04/28/2023 Telephone [facility] Specialty Services [address] [place] [address] Miscellaneous, Not In File READY TO SCHEDULE [...] you are drinking? 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 Gender Identity Not on file Sexual Orientation Not on file documented as of this encounter Plan of Treatment Not on file documented as of this encounter Visit Diagnoses Not on filedocumented in this encounter Additional Health Concerns Infection Onset Date Last Indicated Resolved Time COVID: Suspected 12/01/2023 12/01/2023 12/01/2023 7:33 PM CDT COVID: Suspected 09/13/2024 09/13/2024 09/13/2024 2:53 PM CDT documented as of this encounter Care Teams Treasury Agent Relationship Specialty Start Date End Date Jessie Dickson NP [address] [place] [address] PCP - General Nurse Practitioner 03/05/21 07/07/23 Bashir Alston MD [address] [place] [address] PCP - General Transplant 07/08/23 07/08/23 No, Physician PCP - General 02/16/24 09/12/24 Unknown, Notinfile PCP - General 09/13/24 09/13/24 Sulema Lennon NP [address] [address] [place] [address] PCP - General Nurse Practitioner 09/14/24 Almita Rizzo, RN [address] [facility] [address] [place] [id number] Investment Executive 04/04/21 Beth Fernandez MD [address] [place] [address] Referring Physician Nephrology 04/04/21 Maday Oviedo MD [address] [place] [address] Neurology 09/12/22 Tomasz Scott DO [address] [place] [address] Sample Processor Cardiology 09/16/22 Meir Nazario MD [address] [place] [address] Obstetrics and Gynecology 04/11/24 Kendra Russell RN [address] [place] [address] [employer]OP Outpatient Sales Operations Analyst 06/24/24 07/21/24 documented as of this encounter
[2024-11-07] MEDS: HYDROcodone/acetaminophen (*CRX) 7.5-325 MG TABLET 1 TAB PO (04:32)
--- NOTE | 2024-11-07 04:32 | ED.FALL ---
HPI - Fall General Chief Complaint: Fall <Rc Rojas MD - Last Filed: 11/07/24 07:04> Stated Complaint: RIGHT GROIN/HIP PAIN S/P FALL A FEW DAYS AGO <Rc Rojas MD - Last Filed: 11/07/24 07:04> Time Seen by Provider: 11/07/24 07:45 <Rc Rojas MD - Last Filed: 11/07/24 07:04> History of Present Illness HPI Narrative: Patient is a 44-year-old female who presents emergency department this evening complaining of right groin pain. States that she had a ground level fall on Thursday and landed on her right knee and is unsure if that is what precipitated the pain. She is a poor historian and can not her slightly localize the pain. It points to her right hip/right groin/right SI region. Patient appears uncomfortable and cannot find a comfortable position. He states that the pain is present when she is not moving and it when she is walking and nothing alleviates it. Patient has had an appendectomy. <Rc Rojas MD - Last Filed: 11/07/24 07:04> Related Data Home Medications: Home Medications ?Medication ?Instructions ?Recorded ?Confirmed ?Last Taken ?Type lactulose 10 gram/15 mL oral 15 ml PO QHS PRN constipation 11/02/24 11/07/24 Unknown History solution sevelamer HCl 800 mg tablet 1,600 mg PO TID 11/02/24 11/07/24 11/06/24 History <Rc Rojas MD - Last Filed: 11/07/24 07:04> Allergies/Adverse Reactions: Allergies Allergy/AdvReac Type Severity Reaction Status Date / Time metronidazole Allergy Intermediate Rash Verified 11/07/24 10:12 omeprazole Allergy Intermediate Rash Verified 11/07/24 10:12 <Rc Rojas MD - Last Filed: 11/07/24 07:04> Review of Systems Review of Systems: All systems are reviewed and are negative unless stated otherwise in the HPI. <Rc Rojas MD - Last Filed: 11/07/24 07:04> PMFSH Past Medical History Medical History: Medical History Insulin dependent type 2 diabetes mellitus End-stage renal disease on peritoneal dialysis Obesity (BMI 30-39.9) Erythropoietin deficiency anemia Gastroesophageal reflux Arthritis Right wrist left knee Irritable bowel syndrome Diverticulitis Pneumonia Peripheral neuropathy Hypertension <Rc Rojas MD - Last Filed: 11/07/24 07:04> Surgical History Surgical History: Surgical History History of section x3 History of dilation and curettage History of appendectomy History of cholecystectomy History of salpingo-oophorectomy History of tubal ligation <Rc Rojas MD - Last Filed: 11/07/24 07:04> Family History Family History: Family History Mother Diabetes mellitus Breast cancer Sibling History of blood clots due to blood clot Heart disease Sister has something wrong with her heart Father Hypertension Prostate carcinoma Daughter , 06/08/2021, 19yo Pulmonary embolism <Rc Rojas MD - Last Filed: 11/07/24 07:04> Social History Social History: Social History Social History: Surrogate medical decision maker: Robert Smith, daughter. Code status: Full code. Smoking status: Never smoker Second hand tobacco smoke exposure: Yes Alcohol intake: never Substance use: never Substance use type: does not use Do You Feel Safe in your Home?: Yes Lack of Transportation: YES Lack of Food: Never True Current Housing: I Have Housing Concerned About Future Housing: No Difficulty Paying Gas/Electric Bills: No Difficulty Paying for Meds: No Currently Unemployed: No Education: Decline to Answer Difficulty w/ Childcare or Family Care: No Living arrangements: with family Additional living arrangements comments: Lives with family in [place]. 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 Spiritual care concerns: No Agree to blood products: Yes <Rc Rojas MD - Last Filed: 11/07/24 07:04> Exam Narrative: General: Alert, awake, afebrile, in moderate distress secondary to pain. HEENT: PERRL, no rhinorrhea, no post nasal drip, oropharynx clear. Neck: Trachea midline, no JVD, no lymphadenopathy. Cardiovascular: Regular rate and rhythm, no murmurs, rubs or gallops, no peripheral edema. Respiratory: Clear to auscultation bilaterally, no tachypnea, no wheezing, no rhonchi, no rubs, no respiratory distress. Abdomen: Soft, nontender, nondistended, no rebound, no guarding, no peritoneal signs, no inguinal hernia palpated on the right side. Musculoskeletal: No joint swelling or deformity, normal muscle tone, intact bilateral hip flexors and knee extensors, patient is ambulatory without any issues, unable to localize patient's right groin/hip pain. Skin: No rashes or petechia, no signs of infection. Psychiatric: Alert and oriented, normal behavior and judgment for situation. Neurological: Alert and oriented to person, place, and time. Follows all commands. No focal deficits, speech is clear and fluent. <Rc Rojas MD - Last Filed: 11/07/24 07:04> Course Course Emergency Course: patient signed out to me pending CT result. As below. There was questionable enhancement of the pancreas although patient's lipase level wall mildly elevated, is not 3 times the upper limit of normal and other etiologies favored. patient is reassessed at bedside at approximately 8:00 a.m.. We discussed all of the findings on her CT scan which are generally nonspecific. She is having no intra-abdominal pain although we did discuss these findings. Her dialysis catheter used to be in her right lower quadrant and was removed and she does have a small palpable defect there consistent with the hematoma seen on imaging. We discussed that this should begin to reabsorbed. Her current dialysis access is in her left upper chest. She had been being treated for an infection in on antibiotics and this may explain some of the nonspecific inflammatory etiologies. Her pain is in her proximal right thigh but otherwise without L distinct location. She points to proximal anterolaterally as well as medially. Compartments are otherwise soft and there are no overlying skin changes. Electrolytes had been obtained and she is not hypokalemic or hypomagnesemic. Will obtain CPK. And give Valium. She took ambulance, will not be driving home. She notes that it seems like the hip joint has instability and gives out. Possible labral tear or other ligamentous/tendinous injury? I reviewed imaging particularly focused on the right hip and thigh in do not see any acute process such as an obvious fracture or dislocation or other bony deformity. Patient does have CPK greater than 7000 will require admission for rhabdomyolysis especially given her underlying end-stage renal disease for which she is on dialysis which will require especially judicious attention to IV fluid administration. Will order 1 L initially. discussed patient with on-call hospitalist Dr. Zapata who recommends obtaining dedicated CT femur/thigh imaging with contrast; He will discuss with rehabilitation therapy technician apprentice instrument technician Dr Tripp in the interim. Dr zapata calls back and notes that Dr tripp stated repeat contrast load ok as long as dialysis performed, aware. Recommended maintenance IV fluids at 75cc/hr. CT as below. There was no evidence of cellulitis on exam. <Flaquita Do MD - Last Filed: 11/08/24 09:10> Vital Signs Vital signs: Vital Signs Temperature 97.6 F 11/07/24 04:07 Pulse Rate 81 11/07/24 04:07 Respiratory Rate 14 11/07/24 04:07 Blood Pressure 190/82 H 11/07/24 04:07 Pulse Oximetry 100 11/07/24 04:07 Oxygen Delivery Room Air 11/07/24 04:07 Temperature 97.6 F 11/08/24 03:57 Pulse Rate 73 11/08/24 08:11 Respiratory Rate 18 11/08/24 03:57 Blood Pressure 173/84 H 11/08/24 03:57 Pulse Oximetry 100 11/08/24 03:57 Oxygen Delivery Room Air 11/07/24 20:00 <Rc Rojas MD - Last Filed: 11/07/24 07:04> Vital Signs Temperature 97.6 F 11/07/24 04:07 Pulse Rate 81 11/07/24 04:07 Respiratory Rate 14 11/07/24 04:07 Blood Pressure 190/82 H 11/07/24 04:07 Pulse Oximetry 100 11/07/24 04:07 Oxygen Delivery Room Air 11/07/24 04:07 Temperature 97.6 F 11/08/24 03:57 Pulse Rate 73 11/08/24 08:11 Respiratory Rate 18 11/08/24 03:57 Blood Pressure 173/84 H 11/08/24 03:57 Pulse Oximetry 100 11/08/24 03:57 Oxygen Delivery Room Air 11/07/24 20:00 <Flaquita Do MD - Last Filed: 11/08/24 09:10> MDM - Fall MDM Narrative Medical decision making narrative: The patient was evaluated by myself in the emergency department. History is obtained from patient who is an independent historian and physical exam was performed. External medical records were reviewed at this time. IV was established and pertinent tests were ordered. Patient was administered an oral [place] which did not alleviate patient's symptoms, patient was then administered 4 mg IV morphine and 4 mg of IV Zofran. Laboratory results obtained revealing a leukocytosis of 14.5, hemoglobin of 7.8 which is slightly lower than patient's baseline hemoglobin which is usually between 8-10, potassium 5.2, BUN 37, creatinine 8.52, AST 242, ALT 110, lipase 364 otherwise unremarkable. Urinalysis did reveal 3+ blood. Patient denies any right upper or left upper quadrant abdominal pain. States that her pain is mainly in the right lower quadrant and sometimes radiates to the right flank region. Imaging studies obtained included CT abdomen and pelvis without IV contrast which is currently pending. Differential diagnosis considerations include hip fracture, avascular necrosis, inguinal hernia, DVT, nerve impingement. Comorbidities impacting this visit include end-stage renal disease on hemodialysis. I have evaluated and discussed social determinants of health with the patient that could potentially impact subsequent diagnosis and treatment plans. Patient was signed out to AM ED physician pending CT scan. <Rc Rojas MD - Last Filed: 11/07/24 07:04> Lab Data Result diagrams: 11/08/24 05:53 11/08/24 05:53 <Rc Rojas MD - Last Filed: 11/07/24 07:04> Labs: Lab Results 11/07/24 11/07/24 11/07/24 Range/Units 05:22 05:22 05:22 WBC 14.5 H (4.5-10.0) K/mm3 RBC 3.08 L (4.2-5.4) M/mm3 Hgb 7.8 L (12.0-15.0) g/dL Hct 26.5 L (37.0-47.0) % MCV 86.0 (80-100) fl MCH 25.3 L (26-34) pg MCHC 29.4 L (32-36) g/dl RDW 17.7 H (11.5-14.5) % Plt Count 263 (150-375) k/mm3 MPV 8.7 (7.4-10.4) fl Immature Gran % (Auto) 0.8 H (0-0.5) % Neut % (Auto) 62.4 (45.5-73.1) % Lymph % (Auto) 24.0 (18.3-44.2) % [place] % (Auto) 7.6 (2.6-8.5) % Eos % (Auto) 4.4 (0-4.4) % Baso % (Auto) 0.8 (0.2-1.2) % Lymph # (Auto) 3.47 H (0.9-3.2) K/mm3 [place] # (Auto) 1.1 H (0.1-0.6) K/mm3 Eos # (Auto) 0.6 H (0-0.3) K/mm3 Baso # (Auto) 0.1 (0.0-0.1) K/mm3 Abs Immat Gran (auto) 0.12 H (0.00-0.031) K/mm3 Absolute Neuts (auto) 9.0 H (1.3-6.7) K/mm3 Absolute Nucleated RBC 0.020 H (0.0-0.012) K/mm3 Band Neutrophils % Not Reportable Nucleated RBC % 0.1 (0.0-0.2) % Platelet Estimate Adequate (Adequate) Hypochromasia 1+ Anisocytosis 1+ Ovalocytes 1+ Stomatocytes 1+ Schistocytes None seen Sodium Cancelled 135 L Potassium Cancelled 5.2 H Chloride Cancelled Carbon Dioxide Anion Gap BUN Creatinine Estim Creat Clear Calc Estimated GFR Glucose Lactic Acid (0.7-2.0) mmol/L Calcium Magnesium (1.6-2.3) mg/dL Total Bilirubin AST ALT Alkaline Phosphatase Total Creatine Kinase (30-135) U/L C-Reactive Protein (<1.0) mg/dL Total Protein Albumin Lipase (23-300) U/L Serum HCG, Qual Urine Color (Yellow) Urine Appearance (Clear) Urine pH (5.0-9.0) Ur Specific [place] (1.001-1.035) Urine Protein (Negative) mg/dL Urine Glucose (UA) (Negative) mg/dL Urine Ketones (Negative) mg/dL Ur Blood (Man) (Negative) Urine Nitrate (Negative) Urine Bilirubin (Negative) Urine Urobilinogen (<2.0) mg/dL Leukocyte Esterase Rfl (Negative) GISELA/UL Urine RBC (0-2) /hpf Urine WBC (0-3) /hpf Ur Squamous Epith Cells (Few) /hpf Urine Bacteria /hpf Urine Casts 11/07/24 11/07/24 11/07/24 Range/Units 05:22 05:22 05:22 WBC (4.5-10.0) K/mm3 RBC (4.2-5.4) M/mm3 Hgb (12.0-15.0) g/dL Hct (37.0-47.0) % MCV (80-100) fl MCH (26-34) pg MCHC (32-36) g/dl RDW (11.5-14.5) % Plt Count (150-375) k/mm3 MPV (7.4-10.4) fl Immature Gran % (Auto) (0-0.5) % Neut % (Auto) (45.5-73.1) % Lymph % (Auto) (18.3-44.2) % [place] % (Auto) (2.6-8.5) % Eos % (Auto) (0-4.4) % Baso % (Auto) (0.2-1.2) % Lymph # (Auto) (0.9-3.2) K/mm3 [place] # (Auto) (0.1-0.6) K/mm3 Eos # (Auto) (0-0.3) K/mm3 Baso # (Auto) (0.0-0.1) K/mm3 Abs Immat Gran (auto) (0.00-0.031) K/mm3 Absolute Neuts (auto) (1.3-6.7) K/mm3 Absolute Nucleated RBC (0.0-0.012) K/mm3 Band Neutrophils % Nucleated RBC % (0.0-0.2) % Platelet Estimate (Adequate) Hypochromasia Anisocytosis Ovalocytes Stomatocytes Schistocytes Sodium Potassium Chloride 101 Carbon Dioxide Cancelled 32 H Anion Gap Cancelled 2 L BUN Cancelled Creatinine Estim Creat Clear Calc Estimated GFR Glucose Lactic Acid (0.7-2.0) mmol/L Calcium Magnesium (1.6-2.3) mg/dL Total Bilirubin AST ALT Alkaline Phosphatase Total Creatine Kinase (30-135) U/L C-Reactive Protein (<1.0) mg/dL Total Protein Albumin Lipase (23-300) U/L Serum HCG, Qual Urine Color (Yellow) Urine Appearance (Clear) Urine pH (5.0-9.0) Ur Specific [place] (1.001-1.035) Urine Protein (Negative) mg/dL Urine Glucose (UA) (Negative) mg/dL Urine Ketones (Negative) mg/dL Ur Blood (Man) (Negative) Urine Nitrate (Negative) Urine Bilirubin (Negative) Urine Urobilinogen (<2.0) mg/dL Leukocyte Esterase Rfl (Negative) GISELA/UL Urine RBC (0-2) /hpf Urine WBC (0-3) /hpf Ur Squamous Epith Cells (Few) /hpf Urine Bacteria /hpf Urine Casts 11/07/24 11/07/24 11/07/24 Range/Units 05:22 05:22 05:22 WBC (4.5-10.0) K/mm3 RBC (4.2-5.4) M/mm3 Hgb (12.0-15.0) g/dL Hct (37.0-47.0) % MCV (80-100) fl MCH (26-34) pg MCHC (32-36) g/dl RDW (11.5-14.5) % Plt Count (150-375) k/mm3 MPV (7.4-10.4) fl Immature Gran % (Auto) (0-0.5) % Neut % (Auto) (45.5-73.1) % Lymph % (Auto) (18.3-44.2) % [place] % (Auto) (2.6-8.5) % Eos % (Auto) (0-4.4) % Baso % (Auto) (0.2-1.2) % Lymph # (Auto) (0.9-3.2) K/mm3 [place] # (Auto) (0.1-0.6) K/mm3 Eos # (Auto) (0-0.3) K/mm3 Baso # (Auto) (0.0-0.1) K/mm3 Abs Immat Gran (auto) (0.00-0.031) K/mm3 Absolute Neuts (auto) (1.3-6.7) K/mm3 Absolute Nucleated RBC (0.0-0.012) K/mm3 Band Neutrophils % Nucleated RBC % (0.0-0.2) % Platelet Estimate (Adequate) Hypochromasia Anisocytosis Ovalocytes Stomatocytes Schistocytes Sodium Potassium Chloride Carbon Dioxide Anion Gap BUN 37 H Creatinine Cancelled 8.59 H Estim Creat Clear Calc Cancelled 8 Estimated GFR Cancelled Glucose Lactic Acid (0.7-2.0) mmol/L Calcium Magnesium (1.6-2.3) mg/dL Total Bilirubin AST ALT Alkaline Phosphatase Total Creatine Kinase (30-135) U/L C-Reactive Protein (<1.0) mg/dL Total Protein Albumin Lipase (23-300) U/L Serum HCG, Qual Urine Color (Yellow) Urine Appearance (Clear) Urine pH (5.0-9.0) Ur Specific [place] (1.001-1.035) Urine Protein (Negative) mg/dL Urine Glucose (UA) (Negative) mg/dL Urine Ketones (Negative) mg/dL Ur Blood (Man) (Negative) Urine Nitrate (Negative) Urine Bilirubin (Negative) Urine Urobilinogen (<2.0) mg/dL Leukocyte Esterase Rfl (Negative) GISELA/UL Urine RBC (0-2) /hpf Urine WBC (0-3) /hpf Ur Squamous Epith Cells (Few) /hpf Urine Bacteria /hpf Urine Casts 11/07/24 11/07/24 11/07/24 Range/Units 05:22 05:22 05:22 WBC (4.5-10.0) K/mm3 RBC (4.2-5.4) M/mm3 Hgb (12.0-15.0) g/dL Hct (37.0-47.0) % MCV (80-100) fl MCH (26-34) pg MCHC (32-36) g/dl RDW (11.5-14.5) % Plt Count (150-375) k/mm3 MPV (7.4-10.4) fl Immature Gran % (Auto) (0-0.5) % Neut % (Auto) (45.5-73.1) % Lymph % (Auto) (18.3-44.2) % [place] % (Auto) (2.6-8.5) % Eos % (Auto) (0-4.4) % Baso % (Auto) (0.2-1.2) % Lymph # (Auto) (0.9-3.2) K/mm3 [place] # (Auto) (0.1-0.6) K/mm3 Eos # (Auto) (0-0.3) K/mm3 Baso # (Auto) (0.0-0.1) K/mm3 Abs Immat Gran (auto) (0.00-0.031) K/mm3 Absolute Neuts (auto) (1.3-6.7) K/mm3 Absolute Nucleated RBC (0.0-0.012) K/mm3 Band Neutrophils % Nucleated RBC % (0.0-0.2) % Platelet Estimate (Adequate) Hypochromasia Anisocytosis Ovalocytes Stomatocytes Schistocytes Sodium Potassium Chloride Carbon Dioxide Anion Gap BUN Creatinine Estim Creat Clear Calc Estimated GFR 5 L Glucose Cancelled 190 H Lactic Acid 1.0 (0.7-2.0) mmol/L Calcium Cancelled 8.6 Magnesium 2.2 (1.6-2.3) mg/dL Total Bilirubin Cancelled AST ALT Alkaline Phosphatase Total Creatine Kinase (30-135) U/L C-Reactive Protein (<1.0) mg/dL Total Protein Albumin Lipase (23-300) U/L Serum HCG, Qual Urine Color (Yellow) Urine Appearance (Clear) Urine pH (5.0-9.0) Ur Specific [place] (1.001-1.035) Urine Protein (Negative) mg/dL Urine Glucose (UA) (Negative) mg/dL Urine Ketones (Negative) mg/dL Ur Blood (Man) (Negative) Urine Nitrate (Negative) Urine Bilirubin (Negative) Urine Urobilinogen (<2.0) mg/dL Leukocyte Esterase Rfl (Negative) GISELA/UL Urine RBC (0-2) /hpf Urine WBC (0-3) /hpf Ur Squamous Epith Cells (Few) /hpf Urine Bacteria /hpf Urine Casts 11/07/24 11/07/24 11/07/24 Range/Units 05:22 05:22 05:22 WBC (4.5-10.0) K/mm3 RBC (4.2-5.4) M/mm3 Hgb (12.0-15.0) g/dL Hct (37.0-47.0) % MCV (80-100) fl MCH (26-34) pg MCHC (32-36) g/dl RDW (11.5-14.5) % Plt Count (150-375) k/mm3 MPV (7.4-10.4) fl Immature Gran % (Auto) (0-0.5) % Neut % (Auto) (45.5-73.1) % Lymph % (Auto) (18.3-44.2) % [place] % (Auto) (2.6-8.5) % Eos % (Auto) (0-4.4) % Baso % (Auto) (0.2-1.2) % Lymph # (Auto) (0.9-3.2) K/mm3 [place] # (Auto) (0.1-0.6) K/mm3 Eos # (Auto) (0-0.3) K/mm3 Baso # (Auto) (0.0-0.1) K/mm3 Abs Immat Gran (auto) (0.00-0.031) K/mm3 Absolute Neuts (auto) (1.3-6.7) K/mm3 Absolute Nucleated RBC (0.0-0.012) K/mm3 Band Neutrophils % Nucleated RBC % (0.0-0.2) % Platelet Estimate (Adequate) Hypochromasia Anisocytosis Ovalocytes Stomatocytes Schistocytes Sodium Potassium Chloride Carbon Dioxide Anion Gap BUN Creatinine Estim Creat Clear Calc Estimated GFR Glucose Lactic Acid (0.7-2.0) mmol/L Calcium Magnesium (1.6-2.3) mg/dL Total Bilirubin 0.3 AST Cancelled 242 H ALT Cancelled 110 H Alkaline Phosphatase Cancelled Total Creatine Kinase (30-135) U/L C-Reactive Protein (<1.0) mg/dL Total Protein Albumin Lipase (23-300) U/L Serum HCG, Qual Urine Color (Yellow) Urine Appearance (Clear) Urine pH (5.0-9.0) Ur Specific [place] (1.001-1.035) Urine Protein (Negative) mg/dL Urine Glucose (UA) (Negative) mg/dL Urine Ketones (Negative) mg/dL Ur Blood (Man) (Negative) Urine Nitrate (Negative) Urine Bilirubin (Negative) Urine Urobilinogen (<2.0) mg/dL Leukocyte Esterase Rfl (Negative) GISELA/UL Urine RBC (0-2) /hpf Urine WBC (0-3) /hpf Ur Squamous Epith Cells (Few) /hpf Urine Bacteria /hpf Urine Casts 11/07/24 11/07/24 11/07/24 Range/Units 05:22 05:22 05:22 WBC (4.5-10.0) K/mm3 RBC (4.2-5.4) M/mm3 Hgb (12.0-15.0) g/dL Hct (37.0-47.0) % MCV (80-100) fl MCH (26-34) pg MCHC (32-36) g/dl RDW (11.5-14.5) % Plt Count (150-375) k/mm3 MPV (7.4-10.4) fl Immature Gran % (Auto) (0-0.5) % Neut % (Auto) (45.5-73.1) % Lymph % (Auto) (18.3-44.2) % [place] % (Auto) (2.6-8.5) % Eos % (Auto) (0-4.4) % Baso % (Auto) (0.2-1.2) % Lymph # (Auto) (0.9-3.2) K/mm3 [place] # (Auto) (0.1-0.6) K/mm3 Eos # (Auto) (0-0.3) K/mm3 Baso # (Auto) (0.0-0.1) K/mm3 Abs Immat Gran (auto) (0.00-0.031) K/mm3 Absolute Neuts (auto) (1.3-6.7) K/mm3 Absolute Nucleated RBC (0.0-0.012) K/mm3 Band Neutrophils % Nucleated RBC % (0.0-0.2) % Platelet Estimate (Adequate) Hypochromasia Anisocytosis Ovalocytes Stomatocytes Schistocytes Sodium Potassium Chloride Carbon Dioxide Anion Gap BUN Creatinine Estim Creat Clear Calc Estimated GFR Glucose Lactic Acid (0.7-2.0) mmol/L Calcium Magnesium (1.6-2.3) mg/dL Total Bilirubin AST ALT Alkaline Phosphatase 452 H Total Creatine Kinase 7203 H (30-135) U/L C-Reactive Protein 0.6 (<1.0) mg/dL Total Protein Cancelled 7.4 Albumin Cancelled 3.1 L Lipase 364 H (23-300) U/L Serum HCG, Qual Negative Urine Color (Yellow) Urine Appearance (Clear) Urine pH (5.0-9.0) Ur Specific [place] (1.001-1.035) Urine Protein (Negative) mg/dL Urine Glucose (UA) (Negative) mg/dL Urine Ketones (Negative) mg/dL Ur Blood (Man) (Negative) Urine Nitrate (Negative) Urine Bilirubin (Negative) Urine Urobilinogen (<2.0) mg/dL Leukocyte Esterase Rfl (Negative) GISELA/UL Urine RBC (0-2) /hpf Urine WBC (0-3) /hpf Ur Squamous Epith Cells (Few) /hpf Urine Bacteria /hpf Urine Casts 11/07/24 Range/Units 05:30 WBC (4.5-10.0) K/mm3 RBC (4.2-5.4) M/mm3 Hgb (12.0-15.0) g/dL Hct (37.0-47.0) % MCV (80-100) fl MCH (26-34) pg MCHC (32-36) g/dl RDW (11.5-14.5) % Plt Count (150-375) k/mm3 MPV (7.4-10.4) fl Immature Gran % (Auto) (0-0.5) % Neut % (Auto) (45.5-73.1) % Lymph % (Auto) (18.3-44.2) % [place] % (Auto) (2.6-8.5) % Eos % (Auto) (0-4.4) % Baso % (Auto) (0.2-1.2) % Lymph # (Auto) (0.9-3.2) K/mm3 [place] # (Auto) (0.1-0.6) K/mm3 Eos # (Auto) (0-0.3) K/mm3 Baso # (Auto) (0.0-0.1) K/mm3 Abs Immat Gran (auto) (0.00-0.031) K/mm3 Absolute Neuts (auto) (1.3-6.7) K/mm3 Absolute Nucleated RBC (0.0-0.012) K/mm3 Band Neutrophils % Nucleated RBC % (0.0-0.2) % Platelet Estimate (Adequate) Hypochromasia Anisocytosis Ovalocytes Stomatocytes Schistocytes Sodium Potassium Chloride Carbon Dioxide Anion Gap BUN Creatinine Estim Creat Clear Calc Estimated GFR Glucose Lactic Acid (0.7-2.0) mmol/L Calcium Magnesium (1.6-2.3) mg/dL Total Bilirubin AST ALT Alkaline Phosphatase Total Creatine Kinase (30-135) U/L C-Reactive Protein (<1.0) mg/dL Total Protein Albumin Lipase (23-300) U/L Serum HCG, Qual Urine Color Yellow (Yellow) Urine Appearance Clear (Clear) Urine pH >=9.0 H (5.0-9.0) Ur Specific [place] 1.012 (1.001-1.035) Urine Protein 3+ H (Negative) mg/dL Urine Glucose (UA) 1+ H (Negative) mg/dL Urine Ketones Negative (Negative) mg/dL Ur Blood (Man) 3+ H (Negative) Urine Nitrate Negative (Negative) Urine Bilirubin Negative (Negative) Urine Urobilinogen 0.2 (<2.0) mg/dL Leukocyte Esterase Rfl Trace H (Negative) GISELA/UL Urine RBC 0-2 (0-2) /hpf Urine WBC 0-5 (0-3) /hpf Ur Squamous Epith Cells Occasional (Few) /hpf Urine Bacteria None seen /hpf Urine Casts 0-2 <Rc Rojas MD - Last Filed: 11/07/24 07:04> Lab Results 11/07/24 11/07/24 11/07/24 Range/Units 05:22 05:22 05:22 WBC 14.5 H (4.5-10.0) K/mm3 RBC 3.08 L (4.2-5.4) M/mm3 Hgb 7.8 L (12.0-15.0) g/dL Hct 26.5 L (37.0-47.0) % MCV 86.0 (80-100) fl MCH 25.3 L (26-34) pg MCHC 29.4 L (32-36) g/dl RDW 17.7 H (11.5-14.5) % Plt Count 263 (150-375) k/mm3 MPV 8.7 (7.4-10.4) fl Immature Gran % (Auto) 0.8 H (0-0.5) % Neut % (Auto) 62.4 (45.5-73.1) % Lymph % (Auto) 24.0 (18.3-44.2) % [place] % (Auto) 7.6 (2.6-8.5) % Eos % (Auto) 4.4 (0-4.4) % Baso % (Auto) 0.8 (0.2-1.2) % Lymph # (Auto) 3.47 H (0.9-3.2) K/mm3 [place] # (Auto) 1.1 H (0.1-0.6) K/mm3 Eos # (Auto) 0.6 H (0-0.3) K/mm3 Baso # (Auto) 0.1 (0.0-0.1) K/mm3 Abs Immat Gran (auto) 0.12 H (0.00-0.031) K/mm3 Absolute Neuts (auto) 9.0 H (1.3-6.7) K/mm3 Absolute Nucleated RBC 0.020 H (0.0-0.012) K/mm3 Band Neutrophils % Not Reportable Nucleated RBC % 0.1 (0.0-0.2) % Platelet Estimate Adequate (Adequate) Hypochromasia 1+ Anisocytosis 1+ Ovalocytes 1+ Stomatocytes 1+ Schistocytes None seen Sodium Cancelled 135 L Potassium Cancelled 5.2 H Chloride Cancelled Carbon Dioxide Anion Gap BUN Creatinine Estim Creat Clear Calc Estimated GFR Glucose Lactic Acid (0.7-2.0) mmol/L Calcium Magnesium (1.6-2.3) mg/dL Total Bilirubin AST ALT Alkaline Phosphatase Total Creatine Kinase (30-135) U/L C-Reactive Protein (<1.0) mg/dL Total Protein Albumin Lipase (23-300) U/L Serum HCG, Qual Urine Color (Yellow) Urine Appearance (Clear) Urine pH (5.0-9.0) Ur Specific [place] (1.001-1.035) Urine Protein (Negative) mg/dL Urine Glucose (UA) (Negative) mg/dL Urine Ketones (Negative) mg/dL Ur Blood (Man) (Negative) Urine Nitrate (Negative) Urine Bilirubin (Negative) Urine Urobilinogen (<2.0) mg/dL Leukocyte Esterase Rfl (Negative) GISELA/UL Urine RBC (0-2) /hpf Urine WBC (0-3) /hpf Ur Squamous Epith Cells (Few) /hpf Urine Bacteria /hpf Urine Casts 11/07/24 11/07/24 11/07/24 Range/Units 05:22 05:22 05:22 WBC (4.5-10.0) K/mm3 RBC (4.2-5.4) M/mm3 Hgb (12.0-15.0) g/dL Hct (37.0-47.0) % MCV (80-100) fl MCH (26-34) pg MCHC (32-36) g/dl RDW (11.5-14.5) % Plt Count (150-375) k/mm3 MPV (7.4-10.4) fl Immature Gran % (Auto) (0-0.5) % Neut % (Auto) (45.5-73.1) % Lymph % (Auto) (18.3-44.2) % [place] % (Auto) (2.6-8.5) % Eos % (Auto) (0-4.4) % Baso % (Auto) (0.2-1.2) % Lymph # (Auto) (0.9-3.2) K/mm3 [place] # (Auto) (0.1-0.6) K/mm3 Eos # (Auto) (0-0.3) K/mm3 Baso # (Auto) (0.0-0.1) K/mm3 Abs Immat Gran (auto) (0.00-0.031) K/mm3 Absolute Neuts (auto) (1.3-6.7) K/mm3 Absolute Nucleated RBC (0.0-0.012) K/mm3 Band Neutrophils % Nucleated RBC % (0.0-0.2) % Platelet Estimate (Adequate) Hypochromasia Anisocytosis Ovalocytes Stomatocytes Schistocytes Sodium Potassium Chloride 101 Carbon Dioxide Cancelled 32 H Anion Gap Cancelled 2 L BUN Cancelled Creatinine Estim Creat Clear Calc Estimated GFR Glucose Lactic Acid (0.7-2.0) mmol/L Calcium Magnesium (1.6-2.3) mg/dL Total Bilirubin AST ALT Alkaline Phosphatase Total Creatine Kinase (30-135) U/L C-Reactive Protein (<1.0) mg/dL Total Protein Albumin Lipase (23-300) U/L Serum HCG, Qual Urine Color (Yellow) Urine Appearance (Clear) Urine pH (5.0-9.0) Ur Specific [place] (1.001-1.035) Urine Protein (Negative) mg/dL Urine Glucose (UA) (Negative) mg/dL Urine Ketones (Negative) mg/dL Ur Blood (Man) (Negative) Urine Nitrate (Negative) Urine Bilirubin (Negative) Urine Urobilinogen (<2.0) mg/dL Leukocyte Esterase Rfl (Negative) GISELA/UL Urine RBC (0-2) /hpf Urine WBC (0-3) /hpf Ur Squamous Epith Cells (Few) /hpf Urine Bacteria /hpf Urine Casts 11/07/24 11/07/24 11/07/24 Range/Units 05:22 05:22 05:22 WBC (4.5-10.0) K/mm3 RBC (4.2-5.4) M/mm3 Hgb (12.0-15.0) g/dL Hct (37.0-47.0) % MCV (80-100) fl MCH (26-34) pg MCHC (32-36) g/dl RDW (11.5-14.5) % Plt Count (150-375) k/mm3 MPV (7.4-10.4) fl Immature Gran % (Auto) (0-0.5) % Neut % (Auto) (45.5-73.1) % Lymph % (Auto) (18.3-44.2) % [place] % (Auto) (2.6-8.5) % Eos % (Auto) (0-4.4) % Baso % (Auto) (0.2-1.2) % Lymph # (Auto) (0.9-3.2) K/mm3 [place] # (Auto) (0.1-0.6) K/mm3 Eos # (Auto) (0-0.3) K/mm3 Baso # (Auto) (0.0-0.1) K/mm3 Abs Immat Gran (auto) (0.00-0.031) K/mm3 Absolute Neuts (auto) (1.3-6.7) K/mm3 Absolute Nucleated RBC (0.0-0.012) K/mm3 Band Neutrophils % Nucleated RBC % (0.0-0.2) % Platelet Estimate (Adequate) Hypochromasia Anisocytosis Ovalocytes Stomatocytes Schistocytes Sodium Potassium Chloride Carbon Dioxide Anion Gap BUN 37 H Creatinine Cancelled 8.59 H Estim Creat Clear Calc Cancelled 8 Estimated GFR Cancelled Glucose Lactic Acid (0.7-2.0) mmol/L Calcium Magnesium (1.6-2.3) mg/dL Total Bilirubin AST ALT Alkaline Phosphatase Total Creatine Kinase (30-135) U/L C-Reactive Protein (<1.0) mg/dL Total Protein Albumin Lipase (23-300) U/L Serum HCG, Qual Urine Color (Yellow) Urine Appearance (Clear) Urine pH (5.0-9.0) Ur Specific [place] (1.001-1.035) Urine Protein (Negative) mg/dL Urine Glucose (UA) (Negative) mg/dL Urine Ketones (Negative) mg/dL Ur Blood (Man) (Negative) Urine Nitrate (Negative) Urine Bilirubin (Negative) Urine Urobilinogen (<2.0) mg/dL Leukocyte Esterase Rfl (Negative) GISELA/UL Urine RBC (0-2) /hpf Urine WBC (0-3) /hpf Ur Squamous Epith Cells (Few) /hpf Urine Bacteria /hpf Urine Casts 11/07/24 11/07/24 11/07/24 Range/Units 05:22 05:22 05:22 WBC (4.5-10.0) K/mm3 RBC (4.2-5.4) M/mm3 Hgb (12.0-15.0) g/dL Hct (37.0-47.0) % MCV (80-100) fl MCH (26-34) pg MCHC (32-36) g/dl RDW (11.5-14.5) % Plt Count (150-375) k/mm3 MPV (7.4-10.4) fl Immature Gran % (Auto) (0-0.5) % Neut % (Auto) (45.5-73.1) % Lymph % (Auto) (18.3-44.2) % [place] % (Auto) (2.6-8.5) % Eos % (Auto) (0-4.4) % Baso % (Auto) (0.2-1.2) % Lymph # (Auto) (0.9-3.2) K/mm3 [place] # (Auto) (0.1-0.6) K/mm3 Eos # (Auto) (0-0.3) K/mm3 Baso # (Auto) (0.0-0.1) K/mm3 Abs Immat Gran (auto) (0.00-0.031) K/mm3 Absolute Neuts (auto) (1.3-6.7) K/mm3 Absolute Nucleated RBC (0.0-0.012) K/mm3 Band Neutrophils % Nucleated RBC % (0.0-0.2) % Platelet Estimate (Adequate) Hypochromasia Anisocytosis Ovalocytes Stomatocytes Schistocytes Sodium Potassium Chloride Carbon Dioxide Anion Gap BUN Creatinine Estim Creat Clear Calc Estimated GFR 5 L Glucose Cancelled 190 H Lactic Acid 1.0 (0.7-2.0) mmol/L Calcium Cancelled 8.6 Magnesium 2.2 (1.6-2.3) mg/dL Total Bilirubin Cancelled AST ALT Alkaline Phosphatase Total Creatine Kinase (30-135) U/L C-Reactive Protein (<1.0) mg/dL Total Protein Albumin Lipase (23-300) U/L Serum HCG, Qual Urine Color (Yellow) Urine Appearance (Clear) Urine pH (5.0-9.0) Ur Specific [place] (1.001-1.035) Urine Protein (Negative) mg/dL Urine Glucose (UA) (Negative) mg/dL Urine Ketones (Negative) mg/dL Ur Blood (Man) (Negative) Urine Nitrate (Negative) Urine Bilirubin (Negative) Urine Urobilinogen (<2.0) mg/dL Leukocyte Esterase Rfl (Negative) GISELA/UL Urine RBC (0-2) /hpf Urine WBC (0-3) /hpf Ur Squamous Epith Cells (Few) /hpf Urine Bacteria /hpf Urine Casts 11/07/24 11/07/24 11/07/24 Range/Units 05:22 05:22 05:22 WBC (4.5-10.0) K/mm3 RBC (4.2-5.4) M/mm3 Hgb (12.0-15.0) g/dL Hct (37.0-47.0) % MCV (80-100) fl MCH (26-34) pg MCHC (32-36) g/dl RDW (11.5-14.5) % Plt Count (150-375) k/mm3 MPV (7.4-10.4) fl Immature Gran % (Auto) (0-0.5) % Neut % (Auto) (45.5-73.1) % Lymph % (Auto) (18.3-44.2) % [place] % (Auto) (2.6-8.5) % Eos % (Auto) (0-4.4) % Baso % (Auto) (0.2-1.2) % Lymph # (Auto) (0.9-3.2) K/mm3 [place] # (Auto) (0.1-0.6) K/mm3 Eos # (Auto) (0-0.3) K/mm3 Baso # (Auto) (0.0-0.1) K/mm3 Abs Immat Gran (auto) (0.00-0.031) K/mm3 Absolute Neuts (auto) (1.3-6.7) K/mm3 Absolute Nucleated RBC (0.0-0.012) K/mm3 Band Neutrophils % Nucleated RBC % (0.0-0.2) % Platelet Estimate (Adequate) Hypochromasia Anisocytosis Ovalocytes Stomatocytes Schistocytes Sodium Potassium Chloride Carbon Dioxide Anion Gap BUN Creatinine Estim Creat Clear Calc Estimated GFR Glucose Lactic Acid (0.7-2.0) mmol/L Calcium Magnesium (1.6-2.3) mg/dL Total Bilirubin 0.3 AST Cancelled 242 H ALT Cancelled 110 H Alkaline Phosphatase Cancelled Total Creatine Kinase (30-135) U/L C-Reactive Protein (<1.0) mg/dL Total Protein Albumin Lipase (23-300) U/L Serum HCG, Qual Urine Color (Yellow) Urine Appearance (Clear) Urine pH (5.0-9.0) Ur Specific [place] (1.001-1.035) Urine Protein (Negative) mg/dL Urine Glucose (UA) (Negative) mg/dL Urine Ketones (Negative) mg/dL Ur Blood (Man) (Negative) Urine Nitrate (Negative) Urine Bilirubin (Negative) Urine Urobilinogen (<2.0) mg/dL Leukocyte Esterase Rfl (Negative) GISELA/UL Urine RBC (0-2) /hpf Urine WBC (0-3) /hpf Ur Squamous Epith Cells (Few) /hpf Urine Bacteria /hpf Urine Casts 11/07/24 11/07/24 11/07/24 Range/Units 05:22 05:22 05:22 WBC (4.5-10.0) K/mm3 RBC (4.2-5.4) M/mm3 Hgb (12.0-15.0) g/dL Hct (37.0-47.0) % MCV (80-100) fl MCH (26-34) pg MCHC (32-36) g/dl RDW (11.5-14.5) % Plt Count (150-375) k/mm3 MPV (7.4-10.4) fl Immature Gran % (Auto) (0-0.5) % Neut % (Auto) (45.5-73.1) % Lymph % (Auto) (18.3-44.2) % [place] % (Auto) (2.6-8.5) % Eos % (Auto) (0-4.4) % Baso % (Auto) (0.2-1.2) % Lymph # (Auto) (0.9-3.2) K/mm3 [place] # (Auto) (0.1-0.6) K/mm3 Eos # (Auto) (0-0.3) K/mm3 Baso # (Auto) (0.0-0.1) K/mm3 Abs Immat Gran (auto) (0.00-0.031) K/mm3 Absolute Neuts (auto) (1.3-6.7) K/mm3 Absolute Nucleated RBC (0.0-0.012) K/mm3 Band Neutrophils % Nucleated RBC % (0.0-0.2) % Platelet Estimate (Adequate) Hypochromasia Anisocytosis Ovalocytes Stomatocytes Schistocytes Sodium Potassium Chloride Carbon Dioxide Anion Gap BUN Creatinine Estim Creat Clear Calc Estimated GFR Glucose Lactic Acid (0.7-2.0) mmol/L Calcium Magnesium (1.6-2.3) mg/dL Total Bilirubin AST ALT Alkaline Phosphatase 452 H Total Creatine Kinase 7203 H (30-135) U/L C-Reactive Protein 0.6 (<1.0) mg/dL Total Protein Cancelled 7.4 Albumin Cancelled 3.1 L Lipase 364 H (23-300) U/L Serum HCG, Qual Negative Urine Color (Yellow) Urine Appearance (Clear) Urine pH (5.0-9.0) Ur Specific [place] (1.001-1.035) Urine Protein (Negative) mg/dL Urine Glucose (UA) (Negative) mg/dL Urine Ketones (Negative) mg/dL Ur Blood (Man) (Negative) Urine Nitrate (Negative) Urine Bilirubin (Negative) Urine Urobilinogen (<2.0) mg/dL Leukocyte Esterase Rfl (Negative) GISELA/UL Urine RBC (0-2) /hpf Urine WBC (0-3) /hpf Ur Squamous Epith Cells (Few) /hpf Urine Bacteria /hpf Urine Casts 11/07/24 Range/Units 05:30 WBC (4.5-10.0) K/mm3 RBC (4.2-5.4) M/mm3 Hgb (12.0-15.0) g/dL Hct (37.0-47.0) % MCV (80-100) fl MCH (26-34) pg MCHC (32-36) g/dl RDW (11.5-14.5) % Plt Count (150-375) k/mm3 MPV (7.4-10.4) fl Immature Gran % (Auto) (0-0.5) % Neut % (Auto) (45.5-73.1) % Lymph % (Auto) (18.3-44.2) % [place] % (Auto) (2.6-8.5) % Eos % (Auto) (0-4.4) % Baso % (Auto) (0.2-1.2) % Lymph # (Auto) (0.9-3.2) K/mm3 [place] # (Auto) (0.1-0.6) K/mm3 Eos # (Auto) (0-0.3) K/mm3 Baso # (Auto) (0.0-0.1) K/mm3 Abs Immat Gran (auto) (0.00-0.031) K/mm3 Absolute Neuts (auto) (1.3-6.7) K/mm3 Absolute Nucleated RBC (0.0-0.012) K/mm3 Band Neutrophils % Nucleated RBC % (0.0-0.2) % Platelet Estimate (Adequate) Hypochromasia Anisocytosis Ovalocytes Stomatocytes Schistocytes Sodium Potassium Chloride Carbon Dioxide Anion Gap BUN Creatinine Estim Creat Clear Calc Estimated GFR Glucose Lactic Acid (0.7-2.0) mmol/L Calcium Magnesium (1.6-2.3) mg/dL Total Bilirubin AST ALT Alkaline Phosphatase Total Creatine Kinase (30-135) U/L C-Reactive Protein (<1.0) mg/dL Total Protein Albumin Lipase (23-300) U/L Serum HCG, Qual Urine Color Yellow (Yellow) Urine Appearance Clear (Clear) Urine pH >=9.0 H (5.0-9.0) Ur Specific [place] 1.012 (1.001-1.035) Urine Protein 3+ H (Negative) mg/dL Urine Glucose (UA) 1+ H (Negative) mg/dL Urine Ketones Negative (Negative) mg/dL Ur Blood (Man) 3+ H (Negative) Urine Nitrate Negative (Negative) Urine Bilirubin Negative (Negative) Urine Urobilinogen 0.2 (<2.0) mg/dL Leukocyte Esterase Rfl Trace H (Negative) GISELA/UL Urine RBC 0-2 (0-2) /hpf Urine WBC 0-5 (0-3) /hpf Ur Squamous Epith Cells Occasional (Few) /hpf Urine Bacteria None seen /hpf Urine Casts 0-2 <Flaquita Do MD - Last Filed: 11/08/24 09:10> Imaging Data Radiologist's impression: Impressions Abdomen/Pelvis CT 11/07/24 07:34 IMPRESSION: 1. There appears be edematous wall thickening of multiple loops of small bowel in the left upper quadrant suspicious for enteritis which could be infectious, inflammatory or ischemic in etiology. 2. Nonspecific haziness to the fat surrounding the pancreas extending to the mesentery which could represent simple edema such as seen with heart failure, renal failure or other generalized edema forming states. Differential would also however include acute pancreatitis and would correlate with lipase levels. 3. Small bilateral pleural effusions and small amount of nonspecific ascites. 4. New 5.3 x 3.2 cm heterogeneous attenuation mass versus complex fluid collection in the anterior right abdominal wall along the tract of a prior dialysis catheter most suspicious for a small hematoma. <Flaquita Do MD - Last Filed: 11/08/24 09:10> Discharge Plan Discharge Clinical Impression: Acute pain of right hip, Acute right flank pain, Acute right lower quadrant pain, Hypertension, Enteritis, Bilateral pleural effusion, Ascites, Abdominal wall hematoma, Rhabdomyolysis <Rc Rojas MD - Last Filed: 11/07/24 07:04> Patient Disposition: Still a Patient <Rc Rojas MD - Last Filed: 11/07/24 07:04> Condition: Improved <Rc Rojas MD - Last Filed: 11/07/24 07:04> Patient Language: Japanese <Rc Rojas MD - Last Filed: 11/07/24 07:04> Prescriptions: No Action (DME) lancets 31 gauge misc See Rx Instructions .ROUTE .MEDSUPPLY Qty: 100 1RF Rx Instructions: bid amlodipine 10 mg tablet 10 mg PO DAILY Qty: 90 1RF (DME) blood-glucose meter [Blood Glucose Monitoring] Kit See Rx Instructions .ROUTE .MEDSUPPLY Qty: 1 0RF Rx Instructions: Check glucose once daily doxazosin [Cardura] 2 mg tablet 2 mg PO QHS Qty: 30 1RF losartan 100 mg tablet 100 mg PO DAILY Qty: 30 1RF lactulose 10 gram/15 mL solution 15 ml PO QHS PRN (Reason: constipation) insulin degludec 100 unit/mL (3 mL) insulin pen 10 unit subcut DAILY Qty: 15 1RF Eliquis 5 mg tablet 5 mg PO BID Qty: 60 5RF labetalol 200 mg tablet 200 mg PO BID Qty: 180 1RF sevelamer HCl 800 mg tablet 1,600 mg PO TID Rx Instructions: must administer with a meal/food (DME) pen needle, diabetic [Easy Comfort Pen Verbena] 32 gauge x 5/32 needle See Rx Instructions .Route Qty: 50 3RF Rx Instructions: Inject insulin once daily As directed gabapentin 100 mg capsule See Rx Instructions .ROUTE .COMPLEX Qty: 540 1RF Dose Instruction: TAKE 2 CAPSULES BY MOUTH 3 TIMES DAILY Rx Instructions: TAKE 2 CAPSULES BY MOUTH 3 TIMES DAILY (DME) FreeStyle Alexandro 3 Plus Sensor Device See Rx Instructions .Route Qty: 2 3RF Rx Instructions: Check glucose continuously every 15 days As directed acetaminophen 500 mg tablet 1,000 mg PO TID PRN (Reason: tessie) Qty: 180 1RF <Rc Rojas MD - Last Filed: 11/07/24 07:04>
[2024-11-07 05:29] LABS: Hematocrit 26.5 % (37.0-47.0); Hemoglobin 7.8 g/dL (12.0-15.0); Immature Granulocyte Percent A 0.8 % (0-0.5); Lymphocytes Absolute Auto 3.47 K/mm3 (0.9-3.2); Mean Corpuscular HGB Conc 29.4 g/dl (32-36); Mean Corpuscular Hemoglobin 25.3 pg (26-34); Mean Corpuscular Volume 86.0 fl (80-100); Nucleated Red Blood Cells Absolute Auto 0.020 K/mm3 (0.0-0.012); Nucleated Red Blood Cells Perc 0.1 % (0.0-0.2); Platelet Count Result 263 k/mm3 (150-375); Red Blood Count 3.08 M/mm3 (4.2-5.4); White Blood Count 14.5 K/mm3 (4.5-10.0)
[2024-11-07] MEDS: ONDANSETRON INJ 4 MG/2 ML VIAL IV PUSH (05:31)
[2024-11-07] MEDS: MORPHINE SULFATE (*CRX) 4 MG/ML INJ IV PUSH ×3 (05:31→18:21)
[2024-11-07 05:45] LABS: Add Urine Microscopic? YES; Appearance Urine Clear (Clear); Glucose Urine UA 1+ mg/dL (Negative); Leukocyte Esterase Ur Trace LEU/UL (Negative); Nitrate Urine Negative (Negative); Non Pathogenic Casts 0-2; Specific Grav Ur 1.012 (1.001-1.035)
[2024-11-07 05:48] LABS: Anisocytosis 1+; Hypochromasia 1+; Ovalocytes 1+; Schistocytes None Seen; Stomatocytes 1+
[2024-11-07 05:53] LABS: Alanine Aminotransferase 110 U/L (6-35); Albumin Level 3.1 g/dL (3.5-5.1); Alkaline Phosphatase 452 U/L (38-126); Anion Gap 2 mmol/L (4-12); Aspartate Amino Transferase 242 U/L (14-36); Bilirubin,Total 0.3 mg/dL (0.2-1.3); Blood Urea Nitrogen 37 mg/dL (7-17); Calcium 8.6 mg/dL (8.4-10.2); Carbon Dioxide 32 mmol/L (22-30); Chloride 101 mmol/L (98-107); Estimated CRCL calculation 8 ml/min; Estimated Glomerular Filt Rate 5; Glucose 190 mg/dL (65-110); Lipase 364 U/L (23-300); Magnesium 2.2 mg/dL (1.6-2.3); Potassium 5.2 mmol/L (3.4-5.0); Sodium 135 mmol/L (137-145); Total Protein 7.4 g/dL (6.3-8.2)
[2024-11-07 05:54] LABS: SPREG INTERNAL CONTROL Positive; Serum Qual hCG Negative
[2024-11-07] MEDS: diazePAM (*CRX) 5 MG TABLET PO (08:14)
[2024-11-07 08:45] LABS: Creatine Kinase 7203 U/L (30-135)
[2024-11-07] MEDS: SODIUM CHLORIDE 0.9% IV 1,000 ML 999 ML IV CONT (09:09)
--- NOTE | 2024-11-07 10:12 | PC.NURSE ---
Patient difficult stick. Phleb called on behalf of confectionery laboratory manager to draw blood cultures.
--- NOTE | 2024-11-07 10:13 | PC.NURSE ---
Unable to obtain blood cultures, senior mortgage loan processor aware, senior mortgage loan processor contacted phlebotomy
--- NOTE | 2024-11-07 12:12 | ADMGEN ---
This patient, Bakari Smith, was admitted to [facility] Surg Room 322-01. Patient/family oriented to hospital policies and general routines including ID bracelet, bed and alarms, visiting hours, pain management, procedures, bathroom and other care routines, personal items, smoking policy, room service/diet, and visiting hours. Information on how to activate the Rapid Response Team has been discussed. Patient/Family are encouraged to report perceived risks to care and to ask questions if they do not understand what they are told or what they should do.
[2024-11-07] MEDS: SODIUM CHLORIDE 0.9% IV 1,000 ML 75 ML IV CONT (12:15)
--- NOTE | 2024-11-07 12:52 | P.HP_ITS ---
H&P: HPI History of Present Illness Date/Time: 11/07/24 12:52 Chief Complaint: Leg pain causing fall Narrative: 44-year-old female past medical history of diabetes type 2, ESRD on hemodialysis, anemia, hypertension, and diverticulitis presents the hospital complaining of a fall and leg pain. Patient states that while she was going down her steps to wait for the dialysis plus hernia and given now and she had f rigoberto. She was unable to get up on her own and sat there for about 5-10 minutes in until about arrived and help her up. She states that over the weekend the pain increased and today the pain became unbearable so she came into emergency room. Patient denies being on statins, cocaine use, excessive exercise,. Lab work in the ED shows leukocytosis of 14.5 hemoglobin of 7.8 sodium of 135, potassium of 5.2, carbon dioxide of 32, anion gap 2, BUN of 37, creatinine of 8.59, glucose of 190, AST of 242, ALT of 110, alkaline phos of 452, CK of 7203, lipase of 364, UA with trace leukocyte esterase, negative for nitrates. CT abdomen pelvis show edematous wall thickening of multiple loops of small bowel in the left upper quadrant suspicious for enteritis, Nonspecific haziness to the fat surrounding the pancreas extending to the mesentery, small pleural effusion, small amount of ascites, and 5.3 x 3.2 cm heterogeneous attenuation mass versus complex fluid collection in the anterior right abdominal wall along the tract of a prior dialysis catheter most suspicious for a small hematoma. Right femur CT mild diffuse skin thickening and soft tissue stranding of the subcutaneous soft tissue around the right knee. Findings are nonspecific and can be seen in cellulitis. Review of Systems Review of Systems: 12 systems were reviewed and are negativ e except for as per HPI. [facility] Past Medical History Medical History Insulin dependent type 2 diabetes mellitus End-stage renal disease on peritoneal dialysis Obesity (BMI 30-39.9) Erythropoietin deficiency anemia Gastroesophageal reflux Arthritis Right wrist left knee Irritable bowel syndrome Diverticulitis Pneumonia Peripheral neuropathy Hypertension Surgical History Surgical History History of section x3 History of dilation and curettage History of appendectomy History of cholecystectomy History of salpingo-oophorectomy History of tubal ligation Family History Family History Mother Diabetes mellitus Breast cancer Sibling History of blood clots due to blood clot Heart disease Sister has something wrong with her heart Father Hypertension Prostate carcinoma Daughter , 06/08/2021, 19yo Pulmonary embolism Social History Social History Social History: Surrogate medical decision maker: Robert Smith, daughter. Code status: Full code. Smoking status: Never smoker Second hand tobacco smoke exposure: Yes Alcohol intake: never Substance use: never Substance use type: does not use Do You Feel Safe in your Home?: Yes Lack of Transportation: YES Lack of Food: Never True Current Housing: I Have Housing Concerned About Future Housing: No Difficulty Paying Gas/Electric Bills: No Difficulty Paying for Meds: No Currently Unemployed: No Education: Decline to Answer Difficulty w/ Childcare or Family Care: No Living arrangements: with family Additional living arrangements comments: Lives with family in [place]. 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 Spiritual care concerns: No Agree to blood products: Yes Meds Home Medications and Allergies Home Medications ?Medication ?Instructions ?Recorded ?Confirmed ?Type lancets 31 gauge #100 ea 12/30/23 11/07/24 Rx amlodipine 10 mg tablet 10 mg PO DAILY #90 tabs 05/2411/07/24 Rx pen needle, diabetic 32 gauge x #50 ea 08/01/24 Rx 5/32 (Easy Comfort Pen [place]) blood-glucose meter (Blood Glucose #1 ea 08/08/2410/24 Rx Monitoring kit) doxazosin 2 mg tablet (Cardura) 2 mg PO QHS #30 tabs 0 09/28/24 11/07/24 Rx losartan 100 mg tablet 100 mg PO DAILY #30 tabs 08/1711/07/24 Rx apixaban 5 mg tablet (Eliquis) 5 mg PO BID #60 tabs 11/07/24 Rx gabapentin 100 mg capsule See Rx Instructions .Route 0 11/02/24 11/07/24 Rx .COMPLEX #540 caps insulin degludec 100 unit/mL (3 10 unit (0.1 mL) subcu t DAILY #15 11/02/24 11/07/24 Rx mL) subcutaneous pen mL labetalol 200 mg tablet 200 mg PO BID #180 tabs 10/2411/07/24 Rx lactulose 10 gram/15 mL oral 15 ml PO QHS PRN constipa tion 11/02/24 11/07/24 History solution sevelamer HCl 800 mg tablet 1,600 mg PO TID 11/02/24 0 11/07/24 History blood-glucose sensor (FreeStyle #2 ea 11/03/24 5 Rx Alexandro 3 Plus Sensor device) acetaminophen 500 mg tablet 1,000 mg (2 x 500 mg) PO T ID PRN 11/04/24 11/07/24 Rx tessie #180 tabs Allergies Allergy/AdvReac Type Severity Reaction Status Date / Time metronidazole Allergy Intermediate Rash Verified 11/07/24 10:12 omeprazole Allergy Intermediate Rash Verified 11/07/24 10:12 Vital Signs Vital Signs - 24 hr 11/07/24 04:07 11/07/24 06:34 11/07/24 06:52 Temperature 97.6 F Pulse Rate 81 88 88 Respiratory Rate 14 18 18 Blood Pressure 190/82 H 180/80 H 178/79 H Pulse Oximetry 100 97 99 Oxygen Delivery Room Air 11/07/24 07:09 11/07/24 08:21 11/07/24 09:11 Temperature Pulse Rate 84 77 79 Respiratory Rate 16 16 17 Blood Pressure 173/82 H 164/78 H 166/80 H Pulse Oximetry 100 100 100 Oxygen Delivery 11/07/24 10:12 11/07/24 11:00 11/07/24 11:44 Temperature 97.5 F L Pulse Rate 77 80 85 Respiratory Rate 15 19 15 Blood Pressure 176/78 H 181/78 H 169/80 H Pulse Oximetry 100 100 100 Oxygen Delivery 11/07/24 12:00 Temperature 96.4 F L Pulse Rate 77 Respiratory Rate 15 Blood Pressure 166/70 H Pulse Oximetry 100 Oxygen Delivery Exam Narrative: General: well appearing, appears stated age. HEENT: normocephalic, atraumatic. Mucous membranes moist. EOMI, PERRLA, bilateral sclera anicteric, no conjunctival injection. Neck supple without JVD, lymphadenopathy, or bruit. Respiratory: clear to ascultation bilaterally. No rales/rhonic/wheezes. Tunneled hemodialysis catheter Cardiovascular: Regular rate and rhythm, normal S1-S2 upon ascultation. No murmurs, rubs, or clicks. PMI is nondisplaced, capillary refill less than 3 second. Abdomen: Soft, round, no pulsatile masses, nondistended and nontender. No rebound, no guarding. No CVA tenderness, no hepatosplenomegaly. Bowel sounds present to all four quadrants. No high pitch or tinkling sounds, resonant to percussion. Extremities: No cyanosis, clubbing, or edema present. Pulses are palpable 2/2. Right lower extremity within normal limits, soft, no erythema, no induration, no rash Neuro: Alert and orientated x 4. PERRLA. Cranial nerves 2-12 intact without focal deficit. Skin: Warm, dry, and intact, without rash, erythema, or lesion. Psych: pleasant, cooperative, normal speech, normal affect, no hallucinations, no dysarthia H&P: Results Labs Labs: Short CBC 11/07/24 Range/Units 05:22 WBC 14.5 H (4.5-10.0) K/mm3 Hgb 7.8 L (12.0-15.0) g/dL Hct 26.5 L (37.0-47.0) % Plt Count 263 (150-375) k/mm3 BMP 11/07/24 11/07/24 11/07/24 05:22 05:22 05:22 Sodium Cancelled 135 L Potassium Cancelled 5.2 H Chloride Cancelled Carbon Dioxide BUN Creatinine Glucose Calcium 11/07/24 11/07/24 11/07/24 05:22 05:22 05:22 Sodium Potassium Chloride 101 Carbon Dioxide Cancelled 32 H BUN Cancelled 37 H Creatinine Cancelled Glucose Calcium 11/07/24 11/07/24 11/07/24 05:22 05:22 05:22 Sodium Potassium Chloride Carbon Dioxide BUN Creatinine 8.59 H Glucose Cancelled 190 H Calcium Cancelled 8.6 Cardiac Enzymes 11/07/24 Range/Units 05:22 Total Creatine Kinase 7203 H (30-135) U/L Liver Function 11/07/24 11/07/24 11/07/24 Range/Units 05:22 05:22 05:22 Total Bilirubin Cancelled 0.3 AST Cancelled 242 H ALT Cancelled Alkaline Phosphatase Albumin 11/07/24 11/07/24 11/07/24 Range/Units 05:22 05:22 05:22 Total Bilirubin AST ALT 110 H Alkaline Phosphatase Cancelled 452 H Albumin Cancelled 3.1 L Urine 11/07/24 Range/Units 05:30 Urine Color Yellow (Yellow) Urine Appearance Clear (Clear) Urine pH >=9.0 H (5.0-9.0) Ur Specific [place] 1.012 (1.001-1.035) Urine Protein 3+ H (Negative) mg/dL Urine Glucose (UA) 1+ H (Negative) mg/dL Assessment and Plan Assessment and plan (1) Rhabdomyolysis: Code(s): M62.82 - Rhabdomyolysis Status: Acute Assessment and Plan: Unknown cause possibly from daptomycin Gentle IVF due to dialysis and possibly fluid overload Repeat CK in the morning Patient denies cocaine use, excessive exercise, statin use, or prolonged down time from the fall Neurology consulted for possible myopathies (2) Right leg pain: Code(s): M79.604 - Pain in right leg Status: Acute Assessment and Plan: CT showing Mild diffuse skin thickening and soft tissue stranding of the subcutaneous soft tissue around the right knee. Findings are nonspecific and can be seen in cellulitis. Low suspicion of cellulitis no antibiotics at this time PT OT due to fall Muscle relaxer and pain meds (3) Leukocytosis: Code(s): D72.829 - Elevated white blood cell count, unspecified Status: Acute Assessment and Plan: UA new for infection Possible colitis versus cellulitis of right leg Blood cultures pending Low suspicion cellulitis (4) Bilateral pleural effusion: Code(s): J90 - Pleural effusion, not elsewhere classified Status: Acute Assessment and Plan: Likely due to fluid overload Manage with dialysis (5) Elevated LFTs: Code(s): R79.89 - Other specified abnormal findings of blood chemistry Status: Acute Assessment and Plan: CMP in the morning (6) ESRD (end stage renal disease): Code(s): N18.6 - End stage renal disease Status: Acute Assessment and Plan: Nephrology consulted Renal diabetic diet Continue Renvela (7) Colitis: Code(s): K52.9 - Noninfective gastroenteritis and colitis, unspecified Status: Acute Assessment and Plan: Denies diarrhea No GI complaints (8) Diabetes mellitus type 2, insulin dependent: Code(s): E11.9 - Type 2 diabetes mellitus without complications; 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 HS Lantus and SSI Hold home diabetic medications (9) Hypertension: Code(s): I10 - Essential (primary) hypertension Status: Chronic Assessment and Plan: Continue amlodipine and Cardura (10) Abdominal fluid collection: Code(s): R18.8 - Other ascites Status: Acute Assessment and Plan: CT showing New 5.3 x 3.2 cm heterogeneous attenuation mass versus complex fluid collection in the anterior right abdominal wall along the tract of a prior dialysis catheter most suspicious for a small hematoma. Patient denies abdominal pain Lipase 364 Repeat CBC in a.m. CRP and blood cultures pending Quality VTE Prophylaxis VTE prophylaxis: mechanical ordered Hospitalist MIPS Advance Care Plan I have confirmed that the patient's Advanced Care Plan is present, code status is documented, or surrogate decision maker is listed in patient medical record.: Yes Medication Reconciliation I have utilized all available resources to obtain, update and review the patients current medications (includes all prescriptions, OTC, herbals, cannabis, and nutritional supplements).: Yes
[2024-11-07] MEDS: GABAPENTIN 100 MG CAPSULE 200 MG BY MOUTH ×2 (15:28→20:46)
[2024-11-07 16:37] LABS: MRSA (PCR) NOT DETECTED (NOT DETECTE)
[2024-11-07] MEDS: APIXABAN 5 MG TABLET PO (17:19)
--- NOTE | 2024-11-07 17:25 | P.CONNP_ITS ---
Assessment and Plan Assessment and plan (1) End stage renal disease: Code(s): N18.6 - End stage renal disease Status: Chronic Assessment and Plan: * HD tomorrow * continue //Thursday dialysis schedule while hospitalized * follow trend of electrolytes, volume status, and clearance (2) Elevated creatine kinase level: Code(s): R74.8 - Abnormal levels of other serum enzymes Status: Acute Assessment and Plan: * due to rhabdomyolysis? * should be noted that she was discharged from [facility] on daptomycin for Staphylococcus epidermis peritonitis/bacteremia * is it possible this is a reaction to daptomycin?? * was due to continue this till November 12 * follow trend of CPK (3) Right leg pain: Code(s): M79.604 - Pain in right leg Status: Acute Assessment and Plan: * s/p fall 2 - 3 days ago prior to presentation * CT showing mild diffuse skin thickening and soft tissue stranding of the subcutaneous soft tissue around the right knee. * PT/OT as tolerated * pain control as needed (4) Anemia: Code(s): D64.9 - Anemia, unspecified Status: Chronic Assessment and Plan: * due to ESRD and recent hospitalization as well as acute infection * Epogen with HD * follow trend of H/H (5) Hypertension: Code(s): I10 - Essential (primary) hypertension Status: Chronic Assessment and Plan: * elevated on presentation * resume home medications * may need further adjustments/changes... * follow trend of hemodynamics (6) Diabetes: Code(s): E11.9 - Type 2 diabetes mellitus without complications Status: Chronic Assessment and Plan: * follow accu-cheks * glycemic control per hospitalist I will continue to follow the patient with you while she remains hospitalized and make further recommendations as deemed necessary. Thank you for allowing me to participate in the care of this patient. L History of Present Illness Reason for Consult Consult date: 11/07/24 Reason for consult: end stage renal disease Chief Complaint Chief complaint: rhadbo,esrd on hd History of Present Illness Narrative: The patient is a 44-year-old female with a past medical history as outlined below who presented to [facility] Emergency Room status post fall and associated right leg pain. The patient apparently suffered a ground level fall couple of days ago where she landed on her right knee. Following this fall, she had significant discomfort in her right lower extremity and right groin area but is difficult for the patient to ascertain exactly when the pain started following the fall. The right lower extremity pain seems a fluctuated in terms location ranging anywhere from her right groin, right hip and right SI region. Since this fall, is difficult for her to find a comfortable position to sit in. She reports that the pain seems to be only persistent or exacerbated by movement/walking. Due to the ongoing discomfort /pain in her right lower extremity, she presented to the emergency room for further assessment. Workup and evaluation emergency room demonstrated the patient to be hemodynamically stable if not a bit hypertensive and afebrile. routine testing in the emergency room noted a leukocytosis of 14.5, hemoglobin of 7.8, sodium of 135, potassium of 5.2, carbon dioxide of 32, BUN of 37, creatinine of 8.59, glucose of 190, AST of 242, ALT of 110, alkaline phos of 452, CK of 7203, lipase of 364. Her UA had trace leukocyte esterase and was negative for nitrates. CT abdomen/pelvis was notable for edematous wall thickening of multiple loops of small bowel in the left upper quadrant suspicious for enteritis, nonspecific haziness to the fat surrounding the pancreas extending to the mesentery, small pleural effusion, small amount of ascites, and 5.3 x 3.2 cm heterogeneous attenuation mass versus complex fluid collection in the anterior right abdominal wall along the tract of a prior dialysis catheter most suspicious for a small hematoma. Right femur CT scan demonstrated a mild diffuse skin thickening and soft tissue stranding of the subcutaneous soft tissue around the right knee. which was nonspecific and can be seen in cellulitis. given these clinical findings and constellation of symptoms, the patient was admitted to the hospital further evaluation and therapy. Since her admission, her pain seems to have subsided or least is better controlled at this time. However, she still notes that whenever she moves or ambulate it does seem to be exacerbated although not as significantly as prior to admission. Renal consultation was requested due to her end-stage renal disease. The patient is quite familiar to me as I take care of her outpatient needs with regard to dialysis. The patient was just recently hospitalized at [facility] for peritonitis and associated bacteremia thought to be related to an infected peritoneal dialysis catheter. During the hospital stay, her peritoneal dialysis catheter had to be removed and [facility] had [facility] along with antibiotic dosing with hemodialysis. From what I am told from her outpatient dialysis clinic, she was receiving daptomycin for the bacteremia to complete treatment for this infection. Apparently, her peritonitis and bacteremia were secondary to Staphylococcus epidermidis. The tentative plan is to continue antibiotic therapy to complete treatment for this infection with a consideration for returning to peritoneal dialysis assuming no other issues or complications. Currently, she is on hemodialysis on a Thursday, , Thursday schedule at [facility] under my care. Her last dialysis treatment was on Thursday, on 11/05/2024. She is due for dialysis tomorrow. Currently, at the time my evaluation, she appears to be in no acute distress Review of Systems 2 Review of Systems: As per HPI. [facility] Past Medical History Medical History Insulin dependent type 2 diabetes mellitus End-stage renal disease on peritoneal dialysis Obesity (BMI 30-39.9) Erythropoietin deficiency anemia Gastroesophageal reflux Arthritis Right wrist left knee Irritable bowel syndrome Diverticulitis Pneumonia Peripheral neuropathy Hypertension Surgical History Surgical History History of section x3 History of dilation and curettage History of appendectomy History of cholecystectomy History of salpingo-oophorectomy History of tubal ligation Family History Family History (Updated 11/30/24 @ 01:57 by Brenda Gay RN) Mother Diabetes mellitus Breast cancer Sibling History of blood clots due to blood clot Heart disease Sister has something wrong with her heart Father Prostate carcinoma Hypertension Daughter , 06/08/2021, 19yo Pulmonary embolism due to PE Social History Social History Social History: Surrogate medical decision maker: Robert Smith, daughter. Code status: Full code. Smoking status: Never smoker Second hand tobacco smoke exposure: Yes Alcohol intake: never Substance use: current Substance use type: marijuana Do You Feel Safe in your Home?: Yes Lack of Transportation: No Lack of Food: Often True Current Housing: I Have Housing Concerned About Future Housing: No Difficulty Paying Gas/Electric Bills: No Difficulty Paying for Meds: No Currently Unemployed: No Education: Grade School Difficulty w/ Childcare or Family Care: No Living arrangements: with family Additional living arrangements comments: Lives with family in [place]. 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 Spiritual care concerns: No Agree to blood products: Yes Meds Home Medications and Allergies Home Medications ?Medication ?Instructions ?Recorded ?Confirmed ?Type amlodipine 10 mg tablet 10 mg PO DAILY #90 tabs 05/2411/30/24 Rx pen needle, diabetic 32 gauge x #50 ea 08/01/24 Rx 5/32 (Easy Comfort Pen [place]) doxazosin 2 mg tablet (Cardura) 2 mg PO QHS #30 tabs 0 09/28/24 11/30/24 Rx losartan 100 mg tablet 100 mg PO DAILY #30 tabs 08/1711/30/24 Rx apixaban 5 mg tablet (Eliquis) 5 mg PO BID #60 tabs 11/30/24 Rx insulin degludec 100 unit/mL (3 10 unit (0.1 mL) subcu t DAILY #15 11/02/24 11/30/24 Rx mL) subcutaneous pen mL labetalol 200 mg tablet 200 mg PO BID #180 tabs 10/2411/30/24 Rx lactulose 10 gram/15 mL oral 15 ml PO QHS PRN constipa tion 11/02/24 11/30/24 History solution sevelamer HCl 800 mg tablet 1,600 mg PO TID 11/02/24 1 History blood-glucose sensor (FreeStyle #2 ea 11/03/24 5 Rx Alexandro 3 Plus Sensor device) acetaminophen 500 mg tablet 1,000 mg (2 x 500 mg) PO T ID PRN 11/04/24 11/30/24 Rx tessie #180 tabs gabapentin 100 mg capsule 200 mg PO TID 11/30/2411/30 History Allergies Allergy/AdvReac Type Severity Reaction Status Date / Time metronidazole Allergy Intermediate Rash Verified 11/30/24 03:11 omeprazole Allergy Intermediate Rash Verified 11/30/24 03:11 adhesive tape Allergy Mild Itching Verified 11/30/24 03:11 ibuprofen Allergy Unknown Verified 11/30/24 03:11 Vital Signs Vital Signs Temp Pulse Resp BP Pulse Ox O2 Del Method 11/07/24 16:45 97.9 F 78 16 180/80 H 100 11/07/24 16:00 75 11/07/24 12:00 78 11/07/24 12:00 96.4 F L 77 15 166/70 H 100 11/07/24 11:44 85 15 169/80 H 100 11/07/24 11:00 97.5 F L 80 19 181/78 H 100 11/07/24 10:12 77 15 176/78 H 100 11/07/24 09:11 79 17 166/80 H 100 11/07/24 08:21 77 16 164/78 H 100 11/07/24 07:09 84 16 173/82 H 100 11/07/24 06:52 88 18 178/79 H 99 11/07/24 06:34 88 18 180/80 H 97 11/07/24 04:07 97.6 F 81 14 190/82 H 100 Room Air Exam 2 Narrative: GENERAL APPEARANCE: well developed well nourished female in no acute distress HEENT: normocephalic, atraumatic, normal conjunctiva and sclera, nares patient NECK: no lymphadenopathy, thyromegaly, or JVD MOUTH: normal lips, teeth, and gums CARDIOVASCULAR: RRR, normal S1 and S2, no rub RESPIRATORY: clear anteriorly ABDOMEN: soft, nontender, nondistended, positive bowel sounds present EXTREMITIES: no evidence of cyanosis, clubbing, trace edema NEUROLOGICAL: alert and oriented x 3; CN II - XII intact bilaterally; no focal deficits noted Results Lab Results 11/08/24 05:53 11/08/24 05:53 Lab results: Most recent lab results Calcium 8.6 mg/dL (8.4-10.2) 11/07/24 05:22 Calcium Cancelled 11/07/24 05:22 Magnesium 2.2 mg/dL (1.6-2.3) 11/07/24 05:22
[2024-11-07] MEDS: LABETALOL HCL 100 MG TABLET 200 MG PO (20:43)
[2024-11-07] MEDS: DOCUSATE SODIUM 100 MG CAPSULE PO (20:43)
[2024-11-07] MEDS: DOXAZOSIN MESYLATE 2 MG TABLET PO (20:43)
[2024-11-07] MEDS: INSULIN GLARGINE (*BKC) 100 UNITS/ML 10 UNITS SUB-Q (20:44)
[2024-11-07 23:57] LABS: CRP 0.6 mg/dL (<1.0)
[2024-11-08] VITALS (23 sets, daily range): BP systolic 155–186; BP diastolic 76–91; PULSE 71–90; RESP 18–21; TEMP 36.4–37; O2SAT 97–100
[2024-11-08] MEDS: SODIUM CHLORIDE 0.9% IV 1,000 ML 75 ML IV CONT (03:39)
[2024-11-08] MEDS: GABAPENTIN 100 MG CAPSULE 200 MG BY MOUTH ×2 (06:07→12:55)
[2024-11-08 06:20] LABS: Hematocrit 27.7 % (37.0-47.0); Hemoglobin 8.0 g/dL (12.0-15.0); Immature Granulocyte Percent A 0.8 % (0-0.5); Lymphocytes Absolute Auto 2.78 K/mm3 (0.9-3.2); Mean Corpuscular HGB Conc 28.9 g/dl (32-36); Mean Corpuscular Hemoglobin 25.0 pg (26-34); Mean Corpuscular Volume 86.6 fl (80-100); Nucleated Red Blood Cells Absolute Auto 0.000 K/mm3 (0.0-0.012); Nucleated Red Blood Cells Perc 0.0 % (0.0-0.2); Platelet Count Result 253 k/mm3 (150-375); Red Blood Count 3.20 M/mm3 (4.2-5.4); White Blood Count 10.9 K/mm3 (4.5-10.0)
[2024-11-08 07:06] LABS: Anisocytosis 1+; Hypochromasia 1+; Schistocytes None Seen
[2024-11-08 07:13] LABS: Alanine Aminotransferase 111 U/L (6-35); Albumin Level 2.8 g/dL (3.5-5.1); Alkaline Phosphatase 353 U/L (38-126); Anion Gap 6 mmol/L (4-12); Aspartate Amino Transferase 213 U/L (14-36); Bilirubin,Total 0.3 mg/dL (0.2-1.3); Blood Urea Nitrogen 42 mg/dL (7-17); Calcium 8.7 mg/dL (8.4-10.2); Carbon Dioxide 24 mmol/L (22-30); Chloride 103 mmol/L (98-107); Creatine Kinase > 1600 U/L (30-135); Estimated CRCL calculation 8 ml/min; Estimated Glomerular Filt Rate 5; Glucose 81 mg/dL (65-110); Magnesium 2.2 mg/dL (1.6-2.3); Potassium 5.2 mmol/L (3.4-5.0); Sodium 133 mmol/L (137-145); Total Protein 6.7 g/dL (6.3-8.2)
[2024-11-08] MEDS: APIXABAN 5 MG TABLET PO ×2 (08:07→17:17)
[2024-11-08] MEDS: LABETALOL HCL 100 MG TABLET 200 MG PO (08:11)
[2024-11-08] MEDS: LOSARTAN POTASSIUM 100 MG TABLET PO (08:11)
[2024-11-08] MEDS: HYDROcodone/acetaminophen (*CRX) 5-325 MG TABLET 1 TAB PO (08:34)
[2024-11-08] MEDS: SEVELAMER CARBONATE 800 MG TABLET 1600 MG PO ×2 (12:44→17:17)
--- NOTE | 2024-11-08 13:39 | P.DS_ITS ---
DS: Admitting Diagnosis Discharge Date 11/08/2024 Admitting Diagnosis Leg pain causing fall DS: Discharge Diagnosis Discharge Diagnosis (1) Right leg pain: Code(s): M79.604 - Pain in right leg Status: Acute DS: Summary Hospital Course Hospital Course: 44-year-old female past medical history of diabetes type 2, ESRD on hemodialysis, anemia, hypertension, and diverticulitis presents the hospital complaining of a fall and leg pain. Lab work in the ED shows leukocytosis of 14.5 hemoglobin of 7.8 sodium of 135, potassium of 5.2, carbon dioxide of 32, anion gap 2, BUN of 37, creatinine of 8.59, glucose of 190, AST of 242, ALT of 110, alkaline phos of 452, CK of 7203, lipase of 364, UA with trace leukocyte esterase, negative for nitrates. CT abdomen pelvis show edematous wall thickening of multiple loops of small bowel in the left upper quadrant suspicious for enteritis, Nonspecific haziness to the fat surrounding the pancreas extending to the mesentery, small pleural effusion, small amount of ascites, and 5.3 x 3.2 cm heterogeneous attenuation mass versus complex fluid collection in the anterior right abdominal wall along the tract of a prior dialysis catheter most suspicious for a small hematoma. Right femur CT mild diffuse skin thickening and soft tissue stranding of the subcutaneous soft tissue around the right knee. Findings are nonspecific and can be seen in cellulitis. patient noted this morning that pain has mostly resolved and she is ambulating unassisted. She eating and drinking okay. No vomiting or abd pain. CK coming down significantly, and For elevated liver enzymes AST/ALT 213/111, US liver no acute changes except for ascites that is likely from fluid overload from ESRD. patient dialyzed today. CT femur showed possible right knee cellulitis, patient discharged on levaquin x 10 days. Fluid overload from ESRD, patient currently on room air, dialyzed and will continue dialysis outpatient F/u with nephrology as scheduled. F/uw ith PCP in 3-5 days F/u with nephrology as instructed Time Spent with Patient Time attestation: Total time spent providing and/or coordinating discharge services: DS: Data Data Completed and Pending Labs on day of discharge: Labs from last 24 hours 11/08/24 11/08/24 11/08/24 11:24 06:56 05:53 WBC 10.9 H RBC 3.20 L Hgb 8.0 L Hct 27.7 L MCV 86.6 MCH 25.0 L MCHC 28.9 L RDW 18.2 H Plt Count 253 MPV 9.0 Immature Gran % (Auto) 0.8 H Neut % (Auto) 62.0 Lymph % (Auto) 25.5 [place]ck[place] % (Auto) 6.3 Eos % (Auto) 4.8 H Baso % (Auto) 0.6 Lymph # (Auto) 2.78 [place]ck[place] # (Auto) 0.7 H Eos # (Auto) 0.5 H Baso # (Auto) 0.1 Abs Immat Gran (auto) 0.09 H Absolute Neuts (auto) 6.8 H Absolute Nucleated RBC 0.000 Band Neutrophils % Not Reportable Nucleated RBC % 0.0 Platelet Estimate Adequate Hypochromasia 1+ Anisocytosis 1+ Schistocytes None seen Sodium 133 L Potassium 5.2 H Chloride 103 Carbon Dioxide 24 Anion Gap 6 BUN 42 H Creatinine 9.09 H Estim Creat Clear Calc 8 Estimated GFR 5 L Glucose 81 POC Capillary Glucose 109 H 70 Calcium 8.7 Phosphorus 3.8 Magnesium 2.2 Total Bilirubin 0.3 AST 213 H ALT 111 H Alkaline Phosphatase 353 H Total Creatine Kinase > 1600 H C-Reactive Protein Total Protein 6.7 Albumin 2.8 L Nasal MRSA (PCR) 11/07/24 11/07/24 11/07/24 20:19 16:47 15:19 WBC RBC Hgb Hct MCV MCH MCHC RDW Plt Count MPV Immature Gran % (Auto) Neut % (Auto) Lymph % (Auto) [place] % (Auto) Eos % (Auto) Baso % (Auto) Lymph # (Auto) [place] # (Auto) Eos # (Auto) Baso # (Auto) Abs Immat Gran (auto) Absolute Neuts (auto) Absolute Nucleated RBC Band Neutrophils % Nucleated RBC % Platelet Estimate Hypochromasia Anisocytosis Schistocytes Sodium Potassium Chloride Carbon Dioxide Anion Gap BUN Creatinine Estim Creat Clear Calc Estimated GFR Glucose POC Capillary Glucose 205 H 149 H Calcium Phosphorus Magnesium Total Bilirubin AST ALT Alkaline Phosphatase Total Creatine Kinase C-Reactive Protein Total Protein Albumin Nasal MRSA (PCR) Not detected 11/07/24 05:22 WBC RBC Hgb Hct MCV MCH MCHC RDW Plt Count MPV Immature Gran % (Auto) Neut % (Auto) Lymph % (Auto) [place] % (Auto) Eos % (Auto) Baso % (Auto) Lymph # (Auto) [place] # (Auto) Eos # (Auto) Baso # (Auto) Abs Immat Gran (auto) Absolute Neuts (auto) Absolute Nucleated RBC Band Neutrophils % Nucleated RBC % Platelet Estimate Hypochromasia Anisocytosis Schistocytes Sodium Potassium Chloride Carbon Dioxide Anion Gap BUN Creatinine Estim Creat Clear Calc Estimated GFR Glucose POC Capillary Glucose Calcium Phosphorus Magnesium Total Bilirubin AST ALT Alkaline Phosphatase Total Creatine Kinase C-Reactive Protein 0.6 Total Protein Albumin Nasal MRSA (PCR) Discharge Plan Discharge Attending physician on discharge: Chava Hoang Consulting providers: Beth Fernandez Discharging Clinician: Chava Hoang Anticipated Discharge Date/Time: 11/08/24 13:35 Patient Disposition: Home Activity: as tolerated Diet: as tolerated and heart healthy Patient Instructions: Antibiotic Form, Apixaban (By mouth) Patient Language: Belgian Stand Alone Forms: General Discharge Information Follow-up/Referrals: Beth Fernandez MD [Physician, Nephrology] Referral Note: F/u with PCP in 3-5 days Sulema Lennon APRN [Primary Care Provider, Internal Medicine] Referral Note: F/u with PCP in 3-5 days Discharge Medications: New oxycodone 5 mg Tablet 5 mg PO Q4H PRN (Reason: Pain Rated 7-10) 5 Days Qty: 10 0RF levofloxacin 750 mg tablet 750 mg PO Q48H 10 Days Qty: 5 0RF Continued (DME) lancets 31 gauge misc See Rx Instructions .ROUTE .MEDSUPPLY Qty: 100 1RF Rx Instructions: bid amlodipine 10 mg tablet 10 mg PO DAILY Qty: 90 1RF (DME) blood-glucose meter [Blood Glucose Monitoring] Kit See Rx Instructions .ROUTE .MEDSUPPLY Qty: 1 0RF Rx Instructions: Check glucose once daily doxazosin [Cardura] 2 mg tablet 2 mg PO QHS Qty: 30 1RF losartan 100 mg tablet 100 mg PO DAILY Qty: 30 1RF lactulose 10 gram/15 mL solution 15 ml PO QHS PRN (Reason: constipation) insulin degludec 100 unit/mL (3 mL) insulin pen 10 unit subcut DAILY Qty: 15 1RF Eliquis 5 mg tablet 5 mg PO BID Qty: 60 5RF labetalol 200 mg tablet 200 mg PO BID Qty: 180 1RF sevelamer HCl 800 mg tablet 1,600 mg PO TID Rx Instructions: must administer with a meal/food (DME) pen needle, diabetic [Easy Comfort Pen [place]] 32 gauge x 5/32 needle See Rx Instructions .Route Qty: 50 3RF Rx Instructions: Inject insulin once daily As directed gabapentin 100 mg capsule See Rx Instructions .ROUTE .COMPLEX Qty: 540 1RF Dose Instruction: TAKE 2 CAPSULES BY MOUTH 3 TIMES DAILY Rx Instructions: TAKE 2 CAPSULES BY MOUTH 3 TIMES DAILY (DME) FreeStyle Alexandro 3 Plus Sensor Device See Rx Instructions .Route Qty: 2 3RF Rx Instructions: Check glucose continuously every 15 days As directed acetaminophen 500 mg tablet 1,000 mg PO TID PRN (Reason: tessie) Qty: 180 1RF Date of admission: 11/07/24 10:44 Primary Care Provider: Sulema Lennon Admitting Provider: Estefanía Zapata Attending physician on admission: Estefanía Zapata Condition: Stable
[2024-11-08] MEDS: EPOETIN ALFA-EPBX 20,000 UNITS/ML VIAL 20000 UNITS IV PUSH (16:59)
--- NOTE | 2024-11-08 17:22 | P.PNNP_ITS ---
Progress Note: A&P Assessment and Plan (1) End stage renal disease: Code(s): N18.6 - End stage renal disease Status: Chronic Assessment and Plan: * HD tomorrow * continue //Thursday dialysis schedule while hospitalized * follow trend of electrolytes, volume status, and clearance (2) Elevated creatine kinase level: Code(s): R74.8 - Abnormal levels of other serum enzymes Status: Acute Assessment and Plan: * due to rhabdomyolysis? * should be noted that she was discharged from [facility] on daptomycin for Staphylococcus epidermis peritonitis/bacteremia * is it possible this is a reaction to daptomycin?? * was due to continue this till November 12 * follow trend of CPK (3) Right leg pain: Code(s): M79.604 - Pain in right leg Status: Acute Assessment and Plan: * s/p fall 2 - 3 days ago prior to presentation * CT showing mild diffuse skin thickening and soft tissue stranding of the subcutaneous soft tissue around the right knee. * PT/OT as tolerated * pain control as needed (4) Anemia: Code(s): D64.9 - Anemia, unspecified Status: Chronic Assessment and Plan: * due to ESRD and recent hospitalization as well as acute infection * Epogen with HD * follow trend of H/H (5) Hypertension: Code(s): I10 - Essential (primary) hypertension Status: Chronic Assessment and Plan: * elevated on presentation * resume home medications * may need further adjustments/changes... * follow trend of hemodynamics (6) Diabetes: Code(s): E11.9 - Type 2 diabetes mellitus without complications Status: Chronic Assessment and Plan: * follow accu-cheks * glycemic control per hospitalist Will continue to follow. L Subjective Date/time seen: 11/08/24 17:22 Interval history: Follow-up for end stage renal disease on hemodialysis. Tolerating dialysis treatment without any issue or problems (seen on HD at 5:10pm); right LE pain appears to be doing better in general; no other acute issues or problems voiced at the time of my visit. Exam 2 Narrative: General: WD/WN female in NAD Heart: normal S1 and S2; no rub Lungs: clear to auscultation Abdomen: soft, nontender, nondistended, positive bowel sounds Extremities: no cyanosis or clubbing; no edema Skin: warm and dry Objective Data Vital Signs Vital Signs: Vital Signs Temp Pulse Resp BP Pulse Ox O2 Del Method 11/08/24 17:15 86 186/89 H 11/08/24 17:00 87 175/86 H 11/08/24 16:45 79 164/86 H 11/08/24 16:45 79 164/86 H 11/08/24 16:30 87 165/81 H 11/08/24 16:15 78 168/88 H 11/08/24 16:00 87 170/91 H 11/08/24 15:45 78 164/84 H 11/08/24 15:30 78 163/83 H 11/08/24 15:15 75 167/82 H 11/08/24 15:00 77 170/83 H 11/08/24 14:43 77 168/85 H 11/08/24 14:20 97.8 F 83 18 155/85 H 97 11/08/24 13:51 97.5 F L 84 21 H 166/76 H 100 11/08/24 08:11 73 11/08/24 08:00 71 11/08/24 04:00 88 11/08/24 03:57 97.6 F 81 18 173/84 H 100 11/08/24 00:00 78 11/07/24 20:08 97.6 F 81 18 189/85 H 100 11/07/24 20:00 81 11/07/24 20:00 81 18 100 Room Air Intake/Output Intake/Output: Intake & Output 11/05/24 11/06/24 11/07/24 11/08/24 23:59 23:59 23:59 23:59 Intake Total 2029 1780 Balance 2030 1780 Meds/Results Medications: Active Medications Generic Name Dose Route Start Last Admin Trade Name Freq PRN Reason Stop Dose Admin Acetaminophen 650 mg 11/07/24 10:40 Acetaminophen 325 Mg Tablet PO Q4H PRN Mild Pain (1-3) or Fever Hydrocodone Bitart/Acetaminophen 1 tab 11/07/24 13:36 11/08/24 08:34 Hydrocodone/Acetaminophen (*Crx) 5-325 Mg Tablet PO 1 tab Q4H PRN Administration Moderate Pain (4-6) Amlodipine Besylate 10 mg 11/08/24 09:00 11/08/24 08:11 Amlodipine Besylate 10 Mg Tablet PO 10 mg DAILY CHAYO Administration Apixaban 5 mg 11/07/24 17:00 11/08/24 17:17 Apixaban 5 Mg Tablet PO 5 mg BID CHAYO Administration Dextrose 12.5 gm 11/07/24 10:40 Dextrose 50% 25 Gm/50 Ml Syringe IV PUSH PRN PRN Hypoglycemia Protocol Diazepam 2 mg 11/07/24 22:16 Diazepam (*Crx) 2 Mg Tablet PO Q6HR PRN Cramping Docusate Sodium 100 mg 11/07/24 21:00 11/08/24 08:06 Docusate Sodium 100 Mg Capsule PO Not Given Q12HR CHAYO Doxazosin Mesylate 2 mg 11/07/24 21:00 11/07/24 20:43 Doxazosin Mesylate 2 Mg Tablet PO 2 mg QHS CHAYO Administration Gabapentin 200 mg 11/07/24 14:00 11/08/24 12:55 Gabapentin 100 Mg Capsule BY MOUTH 200 mg Q8HR CHAYO Administration Glucagon 1 mg 11/07/24 10:40 Glucagon For Inj 1 Mg Vial IM PRN PRN Hypoglycemia Protocol Glucose 15 gm 11/07/24 10:40 Glucose Oral Gel 15 Gm Of Glucse In 37.5 Gm Tube PO PRN PRN Hypoglycemia Protocol Hydroxyzine HCl 25 mg 11/07/24 20:15 11/08/24 03:48 Hydroxyzine Hcl 25 Mg Tablet PO 25 mg Q6H PRN Administration Itching Sodium Chloride 1,000 mls @ 75 mls/hr 11/07/24 10:40 11/08/24 03:39 Normal Saline Iv IV CONT 75 mls/hr .[id number] CHAYO Administration Dextrose 1,000 mls @ 100 mls/hr 11/07/24 10:40 Dextrose 5% 1,000 Ml IVPB PRN PRN Hypoglycemia Protocol Albumin Human 50 mls @ 999 mls/hr 11/08/24 05:28 Albutein IVPB 12/08/24 05:27 Q10M PRN HYPOTENSION Insulin Aspart 2 - 5 units 11/07/24 17:00 11/08/24 17:15 Insulin Aspart (*Bkc) 100 Units/Ml SUB-Q Not Given TIDWM CHAYO Protocol Insulin Aspart 1 - 2 units 11/07/24 21:00 11/07/24 20:31 Insulin Aspart (*Bkc) 100 Units/Ml SUB-Q Not Given HS COUNT INCLUDES [facility] Protocol Insulin Glargine 10 units 11/07/24 21:00 11/07/24 20:44 Insulin Glargine (*Bkc) 100 Units/Ml SUB-Q 10 units HS CHAYO Administration Labetalol HCl 200 mg 11/07/24 21:00 11/08/24 08:11 Labetalol Hcl 100 Mg Tablet PO 200 mg Q12HR CHAYO Administration Losartan Potassium 100 mg 11/08/24 09:00 11/08/24 08:11 Losartan Potassium 100 Mg Tablet PO 100 mg DAILY CHAYO Administration Ondansetron HCl 4 mg 11/07/24 10:40 Ondansetron Inj 4 Mg/2 Ml Vial IV PUSH Q4H PRN Nausea Oxycodone HCl 5 mg 11/07/24 22:17 Oxycodone Hcl (*Crx) 5 Mg Tab Ir PO Q4H PRN Pain Rated 7-10 Sevelamer Carbonate 1,600 mg 11/07/24 17:00 11/08/24 17:17 Sevelamer Carbonate 800 Mg Tablet PO 1,600 mg TIDWM CHAYO Administration Radiology Results: ITS Impressions Abdomen/Pelvis CT 11/07/24 07:34 IMPRESSION: 1. There appears be edematous wall thickening of multiple loops of small bowel in the left upper quadrant suspicious for enteritis which could be infectious, inflammatory or ischemic in etiology. 2. Nonspecific haziness to the fat surrounding the pancreas extending to the mesentery which could represent simple edema such as seen with heart failure, renal failure or other generalized edema forming states. Differential would also however include acute pancreatitis and would correlate with lipase levels. 3. Small bilateral pleural effusions and small amount of nonspecific ascites. 4. New 5.3 x 3.2 cm heterogeneous attenuation mass versus complex fluid collection in the anterior right abdominal wall along the tract of a prior dialysis catheter most suspicious for a small hematoma. Femur CT 11/07/24 10:06 IMPRESSION: Mild diffuse skin thickening and soft tissue stranding of the subcutaneous soft tissue around the right knee. Findings are nonspecific and can be seen in cellulitis. Clinical correlation is recommended. Chest X-Ray 11/08/24 08:24 IMPRESSION: 1. Mild opacities at the bilateral lower lung zones which could represent atelectasis and/or pneumonia with small bilateral pleural effusions. 2. Pulmonary vascular congestion with mild bronchial wall thickening in the mid to lower lung zones which could be seen with mild pulmonary edema, bronchitis or reactive airway disease/asthma. Abdomen Ultrasound 11/08/24 12:43 IMPRESSION: 1. Small right pleural effusion. 2. Small volume of ascites. Labs Labs: Laboratory Tests 11/08/24 05:53 11/08/24 05:53 Calcium 8.7 Phosphorus 3.8 Magnesium 2.2 Total Bilirubin 0.3 AST 213 H ALT 111 H Alkaline Phosphatase 353 H Total Creatine Kinase > 1600 H Total Protein 6.7 Albumin 2.8 L Microbiology 11/07/24 10:47 Blood Blood Culture - Preliminary 11/07/24 10:40 Blood Blood Culture - Preliminary
== END 2024-11-08 19:30 | disposition home or self-care (01) ==
LOC: ANHED 07:45 → ANH3MEDSUR 15:25
PROVIDERS: Emergency Medicine; Nurse Practitioner Gerontology; Admitting Provider General Practice; Emergency Provider Student in an Organized Health Care Education/Training Program; PCP Nurse Practitioner Family; Visit Provider Internal Medicine
DX: M62.82 Rhabdomyolysis (principal); M79.604 Pain in right leg; W18.30XA Fall on same level, unspecified, initial encounter; D72.829 Elevated white blood cell count, unspecified; N18.6 End stage renal disease; J90 Pleural effusion, not elsewhere classified; R18.8 Other ascites; E11.22 Type 2 diabetes mellitus with diabetic chronic kidney disease; K52.9 Noninfective gastroenteritis and colitis, unspecified; R79.89 Other specified abnormal findings of blood chemistry; I12.0 Hypertensive chronic kidney disease with stage 5 chronic kidney disease or end stage renal disease; Z99.2 Dependence on renal dialysis; Z79.4 Long term (current) use of insulin; K21.9 Gastro-esophageal reflux disease without esophagitis; Z79.01 Long term (current) use of anticoagulants; Z79.85 Long-term (current) use of injectable non-insulin antidiabetic drugs; E66.9 Obesity, unspecified; Z68.37 Body mass index [BMI] 37.0-37.9, adult
CPT/HCPCS: 36415; 71045; 73502; 73701; 74176; 76705; 80053; 81001; 82550; 82948; 83605; 83690; 83735; 84100; 84703; 85025; 86140; 87040; 87641; 96361; 96374; 96375; 96376; 99285; A9270; G0257; G0378; J1644; J1815; J2270; J2405; J7030; Q5105

== ENCOUNTER 2024-11-29 20:48 | Observation (INO) | payer MEDICARE, MEDICAID, SELFPAY ==
--- NOTE | ~2024-11-29 | XR_ITS ---
EXAMINATION: XR chest 1V portable DATE: 11/29/2024 21:05 INDICATION: Shortness of breath. Weakness. TECHNIQUE: frontal view of the chest was obtained. COMPARISON: Chest radiograph dated 11/08/24 FINDINGS: Opacities at the bilateral lower lung zones with blunting at the bilateral costophrenic angles consistent with small bilateral pleural effusions and associated bibasilar atelectasis and/or pneumonia. No pulmonary edema or pneumothorax. Heart size within normal limits for AP technique. Large-bore dual-lumen left internal jugular central venous catheter with distal tip at the superior cavoatrial junction. IMPRESSION: 1. Small bilateral pleural effusions with bibasilar atelectasis and/or pneumonia. Reviewed, dictated and finalized at location A. IMPRESSION: 1. Small bilateral pleural effusions with bibasilar atelectasis and/or pneumoni a.
--- NOTE | ~2024-11-29 | XR_ITS ---
EXAMINATION: XR hand RT 2V, 12/01/2024 5:20 CDT HISTORY: right hand pain COMPARISON: No comparisons available. Findings: No acute fracture or malalignment. No significant degenerative changes. Soft tissues unremarkable. Impression: No acute fracture or malalignment. Reviewed, dictated and finalized at location P. Impression: No acute fracture or malalignment.
[2024-11-29 20:50] VITALS: BP 244/101; PULSE 77; RESP 18; TEMP 36.7; O2SAT 100
--- NOTE | 2024-11-29 20:50 | ECG_ITS ---
Test Date: 2024-11-29 20:50:05 Measurements Intervals [place] Rate: 77 P: 61 NV: 144 QRS: -4 QRSD: 73 T: 88 QT: 384 QTc: 436 Interpretive Statements SINUS RHYTHM CANNOT R/O SEPTAL INFARCT, AGE INDETERMINATE BORDERLINE ST-T WAVE ABNORMALITY- HIGH LATERAL LEADS BASELINE ARTIFACT- I, III, AVL ABNORMAL ECG Compared to ECG 04/04/2024 14:28:05 No significant changes Electronically Signed On 11-30-2024 08:17:08 CDT by Tomasz Scott D.O.
[2024-11-29 21:09] LABS: Hematocrit 29.3 % (37.0-47.0); Hemoglobin 8.9 g/dL (12.0-15.0); Immature Granulocyte Percent A 0.2 % (0-0.5); Lymphocytes Absolute Auto 3.03 K/mm3 (0.9-3.2); Mean Corpuscular HGB Conc 30.4 g/dl (32-36); Mean Corpuscular Hemoglobin 24.9 pg (26-34); Mean Corpuscular Volume 81.8 fl (80-100); Nucleated Red Blood Cells Absolute Auto 0.000 K/mm3 (0.0-0.012); Nucleated Red Blood Cells Perc 0.0 % (0.0-0.2); Platelet Count Result 169 k/mm3 (150-375); Red Blood Count 3.58 M/mm3 (4.2-5.4); White Blood Count 8.7 K/mm3 (4.5-10.0)
--- OUTSIDE RECORDS SUMMARY | 2024-11-29 21:09 | XMS_ITS | Clinical Summary ---
Author Organization [facility] Address [address] [place] [address] Care Team Providers Care Vat House Laborer Name Role Phone Jessie Dickson SERVICE ORDER EXPEDITER-AUTOMATIC DOOR MECHANIC Primary Care Pro vider Source Comments [facility],non-owned Affiliates and Associated Physician Practices is amultiple site organization consisting of ambulatory clinics and hospital sitesin [place], [place], [place] and [place]. This disclosure is being madepursuant to the Care Everywhere program and may not contain all information available regarding this patient. Last updated 17.[facility] Allergies Active Allergy Reactions Criticality Noted Date [...] Each 11 06/10/19 19 Active ergocalciferol (DRISDOL) 98552 units capsule Take 1 capsule by mouth [...] 2 tablet 01/22/20 22 Active HYDROcodone-acetami nophen (Waldo) 5-325 MG tablet Take 1 (one) tablet [...] on file Legal Sex Female 5:16 PM SAP PLANT MAINTENANCE CONSULTANT Gender Identity Not on file Sexual Orientation Not on file Last Filed Vital Signs Vital Sign Reading Time Taken Comments Blood Pressure 145/85 02/05/2022 12:20 PM SAP PLANT MAINTENANCE CONSULTANT dr irizarry aware; ok to d/cv Pulse 74 02/05/2022 11:55 AM SAP PLANT MAINTENANCE CONSULTANT Temperature 36.8 C (98.2 F) 09/13/2019 8:22 AM CDT Respiratory Rate 12 02/05/2022 11:5 0 AM SAP PLANT MAINTENANCE CONSULTANT Oxygen Saturation 100% 02/05/2022 11: 55 AM SAP PLANT MAINTENANCE CONSULTANT Inhaled Oxygen Concentration - - Weight 108.9 kg (240 lb) 09/13/2019 8:2 2 AM CDT Height 160 cm (5' 3) 09/13/2019 8:22 AM CDT Body Mass Index 42.51 09/13/2019 8:22 AM CDT Plan of Treatment Health Maintenance Due Date Last Done Comments OGADARSH (AGES 45-75) - COLON CA SCREENING 1978 CT COLONOGRAPHY - COLON CA SCREENING 1978 FIT - COLON CA SCREENING 1978 FLEX SIG - COLON CA SCREENING 1978 MAMMOGRAM 1978 MEDICARE AWV 12 MONTHS 1978 DTAP/TDAP/TD VACCINES (1 - Tdap) 1997 PNEUMOCOCCAL VACCINE (1 of 2 - PCV) 1997 HEPATITIS B VACCINE (1 of 3 - Risk Dialysis 4-dose series) 1998 PAP SMEAR 1999 DIABETES-STATIN 2018 DIABETES-FOOT EXAM WITH MONOFILAMENT 11/10/2018 11/10/2017, 11/10/2017 DIABETES RETINOPATHY SCREENING 09/22/2019 09/21/2018, 05/24/2018, 06/24/2017, Additional history exists DEPRESSION SCREENING 02/24/2024 COVID-19 VACCINE ( season) 2024 INFLUENZA VACCINE (#1) 2024 02/03/2023, 2021 DIABETES-HGB A1C 12/15/2024 09/14/2024, , 05/23/2022, Additional history exists ZOSTER VACCINE (1 of 2) 2028 COLON MONITORING 07/20/2033 07/21/2023 COLONOSCOPY - COLON CA SCREENING 07/20/2033 07/21/2023 Colorectal Cancer Screening 07/20/2033 HIV SCREENING Completed 05/24/2018 HEPATITIS C SCREENING Completed 10/27/2024 , 10/27/2024, 10/26/2024, Additional history exists HIB VACCINE Aged Out No longer eligi [...] 11/01/2018 10:11 AM CDT us Tessie Pritchard APRN-AUTOMATIC DOOR MECHANIC LAB - POINT OF CARE O RDERABLES Final Result * HEPATITIS C AB SCREEN RFLX NAAT QUANT (05/28/2018 12:13 PM CDT) Hepatitis C Antibody Non-react javier Non-reac tive 05/28/2018 1:18 PM CDT [facility] Comment: Hepatitis C Antibody screen indicates no [...] 12:13 PM CDT 05/28/2018 12:35 PM CDT us Es Thornton MD LAB - CHEMISTRY ORDERABLES Final Result [address] [phone] * HIV-1 HIV-2 ANTIGEN/ANTIBODY (05/24/2018 5:08 PM CDT) HIV Antigen/Antibod y 1 & 2 Non-reacti ve Non-react javier 05/24/2018 5:54 PM CDT [facility] Comment: Neither HIV-1 p24 Antigen nor HIV-1/HIV-2 Antibodies are detected. Blood BLOOD SPECIMEN / Unknown Venipuncture / Unknown 05/24/2018 5:08 PM CDT 05/24/2018 5:16 PM CDT us Namita Raymond MD LAB - HEMATOLOGY ORDERABLES Fi nal Result [address] [phone] from Last 3 Months or Most Recently Relevant to Health Maintenance Insurance MEDICARE MEDICAID - [place] [facility] MEDICAID SPENDDOWN - [place] MEDICAID - OUT OF STATE Advance Directives * Full Code (Latest Code Status on File) Date Activated Date Inactivated Comments 05/25/2018 12:57 AM 05/28/2018 5:22 PM * Full Code Date Activated Date Inactivated Comments 05/24/2018 6:24 PM 05/25/2018 12:57 AM Care Teams Vat House Laborer Relationship Specialty Start Date End Date Jessie Dickson APRN-CNP [address] [address] PCP - General 06/30/14
--- OUTSIDE RECORDS SUMMARY | 2024-11-29 21:09 | XMS_ITS | Encounter Summary ---
Author Organization [facility] Address [address] [place] [address] Care Team Providers Care Critical Care Registered Nurse Name Role Phone Jessie Dickson CLINICAL RESEARCH MANAGEMENT ASSOCIATE-PAPER PROCESSING MACHINE HELPER Primary Care Pro vider Encounter Details Date Type Department Care Team (Late st Contact Info) Description 05/25/2018 Ophth Exam [facility] [address] [place] [address] Regina Fritz MD [address] [place] [address] Social History Tobacco Use Types Packs/Day Years Used Date Smoking Tobacco: Never Smokeless Tobacco: Never Alcohol Use Standard Drinks/Week Comments No 0 (1 standard drink = 0.6 oz pur e alcohol) socially. Comments No Sex and Gender Information Value Date Recorded Sex Assigned at Not on file Legal Sex Female 5:16 PM EXECUTIVE ASSISTANT Gender Identity Not on file Sexual Orientation [...] Assessment Author No 05/25/2018 2:01 AM Leif Wihte RN documented as of this encounter Mental Status * Does person have difficulty concentrating/remembering/making decisions? Answer Entry Date Author No 05/25/2018 2:01 AM Leif White RN documented in this encounter Plan of Treatment Not on file documented as of this encounter Visit Diagnoses Not on filedocumented in this encounter Care Teams Critical Care Registered Nurse Relationship Specialty Start Date End Date Jessie Dickson APRN-JANET [address] [address] PCP - General 06/30/14 documented as of this encounter
--- OUTSIDE RECORDS SUMMARY | 2024-11-29 21:09 | XMS_ITS | Clinical Summary ---
Author Organization [facility] Address [address] [place] [id number] Phone Care Team Providers Care Industrial Engineering Intern Name Role Phone Jessie Dickson MD Primary Care Provider [phone] Allergies Active Allergy Reactions Criticality Noted Date [...] times daily. 9 Active ergocalciferol (VITAMIN D2) 02519 units capsule TK 1 C PO Q [...] the skin Active Blood Glucose Monitoring Suppl ([employer] Verio Flex System) w/Device kit USE DIRECTED [...] Insurance MEDICAID - [place] MEDICARE Care Teams Industrial Engineering Intern Relationship Specialty Start Date End Date Jessie Dickson MD [facility] [address] PCP - General 05/31/18
--- OUTSIDE RECORDS SUMMARY | 2024-11-29 21:10 | XMS_ITS ---
Author Organization [facility] Address [address] [place] [address] Care Team Providers Care Scenario Writer Name Role Phone Almita Rizzo RN Unavailable [phone] Beth Fernandez MD Unavailable [phone] Maday Oviedo MD Unavailable [phone] Tomasz Scott DO Unavailable [phone] Meir Nazario MD Unavailable [phone] Sulema Lennon NP Primary Care Provider [phone] Dialysis Access Sites Type Status Location Placement [...] DEVICE Routine 09/13/2024 9 :24 PM CDT HI CRITICAL CARE ILL/INJURED PATIENT INIT 30-74 MIN [...] CROSSMATCH RECIPIENT REPORT 09/12/2024 2:08 AM CDT LIPID PANEL STAT 06/21/2024 7:20 PM CDT HEPATITIS C ANTIBODY Routine 02/16/2024 11:34 AM IC ENGINEER Pre-kidney transplant, patient on transplant list ESRD [...] times a day with meals 90 tablet 11 09/16/19 25 2025 Active HYDROcodone-acetamin ophen (NORCO) [...] (04/10/2022): Added automatically from request for surgery [id number] Hypertension 2021 ESRD (end stage renal disease) on dialysis 03/05 Diabetic retinopathy associa graeme with type 2 diabetes mellitus 06/12/2015 Hyperlipidemia 06/29/2014 Type 2 diabetes mellitus 09/17/2012 Immunizations Immunization Administration Dates Next Due Hep B Vaccine 2023,10/06/2022,04/18/2021 Influenza, Mdck, Trivalent, Contains Preservative (MDV) 11/27/2023 Influenza, Quadrivalent, Spl it, Intramuscular 02/03/2023,12/27/2021 PPD TEST 11/03/2024,,05/25/2023,07/30 Pneumococcal Conjugate 7-Valent 03/03/2018 Pneumococcal Conjugate PCV 13 04/18/2021 Pneumococcal Conjugate Pcv20 2023 Pneumococcal Polysaccharide PPV23 07/09/2017 Pneumococcal, Unspecified 04/18/2021 Tdap 07/09/2017 Social History Tobacco Use Types Packs/Day Years Used Date Smoking Tobacco: Never Passive Smoke Exposure: Past Smokeless Tobacco: Never Tobacco Cessation:Counseling Given: Not Answered [facility] Utilities Answer Date Recorded In the past 12 months has th e [employer], gas, oil, or water company threatened to [...] often do you attend chur ch or anabaptism services? More than 4 times per year 09/14/2024 Do you belong to any clubs o r organizations such as zoroastrian groups, unions, fraternal or athletic groups, or [...] any time in the past 12 m [facility], were you homeless or living in a custodial (including now)? No 09/14/2024 Personal Safety Answer Date Recorded Have you ever been in or are you currently in a harmful physical or emotional relationship or is someone making you feel afraid or unsafe? Denies 10/06/2024 Comments No Sex and Gender Information Value Date Recorded Sex Assigned at Not on file Legal Sex Female 11:50 PM IC ENGINEER Gender Identity Not on file Sexual [...] signed by Albert ORNELAS T: Report ID: [id number] Reading Location: [id number] Procedure Note Albert Lopes MD - 10/06/2024 [...] signed by Albert ORNELAS T: Report ID: [id number] Reading Location: [id number] Jackie RAPHAEL IMThea XR PROCEDURES Final Resul t * XR [...] Albert Lopes M.D. KR T: Report ID: [id number] Reading Location: [id number] Procedure Note Albert Lopes MD - 10/06/2024 [...] Albert Lopes M.D. KR T: Report ID: [id number] Reading Location: [id number] Jackie RAPHAEL IMG XR PROCEDURES Final Resul t * (ABNORMAL) eGFR (10/06/2024 2:27 PM CDT) eGFR 3(L) >=60 mL/min/1. 73 m2 [...] RAPHAEL LAB BLOOD ORDERABLES Final Re sult YVONNEARACELY [address] [facility] [place] [address] * Differential, auto (10/06/2024 2:27 PM CDT) Neutrophil abs 6.30 1.50 - 6.50 K/cumm Imm gran abs 0.04 0.00 - 0.10 K/cumm DENNIS Lymphocyte abs 2.11 0.80 - 3.30 K/cumm [facility] Monocyte abs 0.68 0.20 - 0.80 K/cumm [facility] Eosinophil abs 0.45 0.00 - 0.50 K/cumm [facility] Basophil abs 0.05 0.00 - 0.10 K/cumm [facility] Neutrophil pct 65.4 % [facility] Comment: Interpretive Data Percent cell count reference ranges are not reported, since discordance with absolute values may lead to misinterpretation of CBC data. Current Interpretive Data was last revised on 2017. Imm gran pct 0.4 % [facility] Comment: Interpretive Data Percent cell count reference ranges are not reported, since discordance with absolute values may lead to misinterpretation of CBC data. Current Interpretive Data was last revised on 2017. Lymphocyte pct 21.9 % [facility] Comment: Interpretive Data Percent cell count reference ranges are not reported, since discordance with absolute values may lead to misinterpretation of CBC data. Current Interpretive Data was last revised on 2017. Monocyte pct 7.1 % [facility] Comment: Interpretive Data Percent cell count reference ranges are not reported, since discordance with absolute values may lead to misinterpretation of CBC data. Current Interpretive Data was last revised on 2017. Eosinophil pct 4.7 % [facility] Comment: Interpretive Data Percent cell count reference ranges are not reported, since discordance with absolute values may lead to misinterpretation of CBC data. Current Interpretive Data was last revised on 2017. Basophil pct 0.5 % [facility] Comment: Interpretive Data Percent cell count reference ranges are not reported, since discordance with absolute values may lead to misinterpretation of CBC data. Current Interpretive Data was last revised on 2017. Blood 10/06/2024 2:27 PM CDT 10/06/2024 2:30 PM CDT us Jackie RAPHAEL LAB BLOOD ORDERABLES Final Re sult DENNIS JOSUE [address] [facility] [place] [address] * (ABNORMAL) CBC with auto differential (10/06/2024 2:27 PM CDT) [facility] WBC 9.63 3.80 - 9.90 K/cumm Hgb 7.5(L) 11.9 - 15.5 g/dL [facility] Hct 24.4(L) 35.6 - 45.5 % [facility] Plt 218 150 - 400 K/cumm [facility] MPV 10.6 9.1 - 12.3 fL [facility] RBC 2.93(L) 3.90 - 5.20 M/cumm [facility] MCV 83.3 81.3 - 96.4 fL [facility] MCH 25.6(L) 27.1 - 33.3 pg [facility] MCHC 30.7(L) 32.3 - 35.7 g/dL [facility] RDW CV 16.9(H) 11.1 - 14.9 % [facility] RDW SD 50.4(H) 35.7 - 48.1 fL [facility] NRBC abs 0.00 0.00 - 0.01 K/cumm [facility] Blood 10/06/2024 2:27 PM CDT 10/06/2024 2:30 PM CDT us Jackie RAPHAEL LAB BLOOD ORDERABLES Final Re sult [facility] [address] [facility] Department [place] [address] * (ABNORMAL) Comprehensive metabolic panel (10/06/2024 2:27 PM CDT) [facility] Sodium 138 135 - 145 mmol/L Potassium, pl 4.1 3.3 - 4.9 mmol/L [facility] Chloride 99 97 - 110 mmol/L [facility] CO2 24 22 - 32 mmol/L [facility] Anion gap 15 2 - 15 mmol/L [facility] BUN 49(H) 6 - 25 mg/dL [facility] Creatinine 14.10(H) 0.60 - 1.10 mg/dL [facility] Glucose 248(H) 70 - 199 mg/dL [facility] Comment: Interpretive Data Fasting glucose >/= [...] 2022. Calcium 8.6 8.5 - 10.3 mg/dL [facility] Bilirubin, total 0.2 0.1 - 1.2 mg/dL [facility] Protein, pl 6.4(L) 6.5 - 8.5 g/dL [facility] Albumin 2.8(L) 3.5 - 5.0 g/dL [facility] Alk phos 321(H) 40 - 130 Units/L [facility] ALT 55(H) 7 - 45 Units/L [facility] AST 39 10 - 45 Units/L [facility] Blood 10/06/2024 2:27 PM CDT 10/06/2024 2:30 PM CDT Jackie RAPHAEL LAB BLOOD ORDERABLES Final Re sult Performing Organization Address City/[facility]/ZIP Co de Phone Number DENNIS [address] [facility] [place] [address] * HLA Crossmatch Report (09/26/2024 10:00 AM [...] 10:0 0 AM CDT Narrative HISTOTRAC - IC ENGINEER Sample received in lab. Single Antigen Antibody [...] laboratory based on an FDA-approved IVD kit ([employer] Single-Antigen, [employer], [place], [place]). All patient serum samples are pretreated with EDTA before the screen to prevent complement interference. Additional serum treatments, such as adsorption and DTT treatment, may be performed as indicated. Interpretive comments: Low risk: MFI [id number]. Moderate risk: MFI 9086-2854. Increased risk: MFI >/= 5000. The presence [...] avoid. Testing performed at the [facility], [address], [address], [facility], [place], [address]. [facility] # [id number]. Amber Berry, Ph.D., Injection Specialist, [facility] Jonathan Brennan M.D., Ph.D., Head Of Music, [facility] Rehana Alarcon, Ph.D., [place] Head Of Music, [facility] Current methodology and interpretive comments last revised on 03/20/2022. us Miriam Garner MD LAB BLOOD ORDERAB LES Final Result Performing Organization Address City/[facility]/ZIP Co de Phone Number HISTOTRAC * POCT glucose (09/15/2024 11:26 AM CDT) Glucose, POC 128 70 - 199 mg/dL Glucose comment 1 RN/MD Notified [facility] Blood 09/15/2024 11:2 6 AM CDT 09/15/2024 11:26 AM CDT Jonnathan Mojica DO LAB POCT ORDERABLES - DEV ICE Final Result Performing Organization Address [facility] Co de Phone Number [address] [place] [address] * POCT glucose (09/15/2024 7:41 AM CDT) Glucose, POC 88 70 - 199 mg/dL Glucose comment 1 Use This Result [facility] Glucose comment 2 RN/MD Notified DENNIS Blood 09/15/2024 7:41 AM CDT 09/15/2024 7:41 AM CDT Jonnathantravis Daigle Galina DO LAB POCT ORDERABLES - DEV ICE Final Result Performing Organization Address City/[facility] Co de Phone Number [address] [address] * (ABNORMAL) eGFR (09/15/2024 5:03 AM CDT) [facility] eGFR 3(L) >=60 mL/min/1. 73 m2 [...] DO LAB BLOOD ORDERABLES Vicki l Result [facility] [address] [facility] Department [place] [address] * Differential, auto (09/15/2024 5:03 AM CDT) [facility] Neutrophil abs 4.75 1.50 - 6.50 K/cumm Imm gran abs 0.03 0.00 - 0.10 K/cumm [facility] Lymphocyte abs 2.41 0.80 - 3.30 K/cumm [facility] Monocyte abs 0.57 0.20 - 0.80 K/cumm [facility] Eosinophil abs 0.43 0.00 - 0.50 K/cumm [facility] Basophil abs 0.04 0.00 - 0.10 K/cumm [facility] Neutrophil pct 57.7 % [facility] Comment: Interpretive Data Percent cell count reference ranges are not reported, since discordance with absolute values may lead to misinterpretation of CBC data. Current Interpretive Data was last revised on 2017. Imm gran pct 0.4 % [facility] Comment: Interpretive Data Percent cell count reference ranges are not reported, since discordance with absolute values may lead to misinterpretation of CBC data. Current Interpretive Data was last revised on 2017. Lymphocyte pct 29.3 % [facility] Comment: Interpretive Data Percent cell count reference ranges are not reported, since discordance with absolute values may lead to misinterpretation of CBC data. Current Interpretive Data was last revised on 2017. Monocyte pct 6.9 % [facility] Comment: Interpretive Data Percent cell count reference ranges are not reported, since discordance with absolute values may lead to misinterpretation of CBC data. Current Interpretive Data was last revised on 2017. Eosinophil pct 5.2 % [facility] Comment: Interpretive Data Percent cell count reference ranges are not reported, since discordance with absolute values may lead to misinterpretation of CBC data. Current Interpretive Data was last revised on 2017. Basophil pct 0.5 % [facility] Comment: Interpretive Data Percent cell count reference ranges are not reported, since discordance with absolute values may lead to misinterpretation of CBC data. Current Interpretive Data was last revised on 2017. Blood 09/15/2024 5:03 AM CDT 09/15/2024 5:25 AM CDT us Jonnathan Mojica DO LAB BLOOD ORDERABLES Vicki l Result [facility] [address] [facility] Department of Laboratories [place], [place] [id number] * (ABNORMAL) CBC with auto differential (09/15/2024 5:03 AM CDT) WBC 8.23 3.80 - 9.90 K/cumm Hgb 7.4(L) 11.9 - 15.5 g/dL [facility] Hct 24.4(L) 35.6 - 45.5 % [facility] Plt 269 150 - 400 K/cumm [facility] MPV 9.6 9.1 - 12.3 fL [facility] RBC 2.93(L) 3.90 - 5.20 M/cumm [facility] MCV 83.3 81.3 - 96.4 fL [facility] MCH 25.3(L) 27.1 - 33.3 pg [facility] MCHC 30.3(L) 32.3 - 35.7 g/dL [facility] RDW CV 16.1(H) 11.1 - 14.9 % [facility] RDW SD 48.9(H) 35.7 - 48.1 fL [facility] NRBC abs 0.00 0.00 - 0.01 K/cumm [facility] Blood 09/15/2024 5:03 AM CDT 09/15/2024 5:25 AM CDT [employer] LAB BLOOD ORDERABLES Vicki l Result Performing Organization Address [facility] de Phone Number [address] [place] [address] * (ABNORMAL) Erythrocyte sedimentation rate (09/15/2024 5:03 AM CDT) Erythrocyte sedimentation rate 52(H) 1 - 20 mm/hr Blood 09/15/2024 5:03 AM CDT 09/15/2024 5:25 AM CDT [employer] BLOOD ORDERABLES Vicki l Result Performing Organization Address [facility] Co de Phone Number [address] [place] [address] * (ABNORMAL) CRP (acute phase) (09/15/2024 5:03 AM CDT) CRP 12.1(H) <=10.0 mg/L Blood 09/15/2024 5:03 AM CDT 09/15/2024 5:25 AM CDT [employer] LAB BLOOD ORDERABLES Vicki l Result Performing Organization Address City/[facility] Co de Phone Number DENNIS [address] [place] [employer] [address] * (ABNORMAL) Phosphorus (09/15/2024 5:03 AM CDT) [facility] Phosphorus, pl 6.8(H) 2.3 - 4.5 mg/dL Blood 09/15/2024 5:03 AM CDT 09/15/2024 5:25 AM CDT us Herbert Dahl MD LAB BLOOD ORDERABLES Final Res ult Performing Organization Address [facility] Co de Phone Number YVONNE[address] [place] [address] * Magnesium (09/15/2024 5:03 AM CDT) [facility] Magnesium 1.9 1.4 - 2.5 mg/dL Blood 09/15/2024 5:03 AM CDT 09/15/2024 5:25 AM CDT us Herbert Dahl MD LAB BLOOD ORDERABLES Final Res ult Performing Organization Address [facility] Co de Phone Number YVONNE[address] [address] * (ABNORMAL) Basic metabolic panel (09/15/2024 5:03 AM CDT) [facility] Sodium 138 135 - 145 mmol/L Potassium, pl 4.2 3.3 - 4.9 mmol/L [facility] Chloride 103 97 - 110 mmol/L [facility] CO2 24 22 - 32 mmol/L [facility] Anion gap 11 2 - 15 mmol/L [facility] BUN 48(H) 6 - 25 mg/dL [facility] Creatinine 13.80(H) 0.60 - 1.10 mg/dL [facility] Glucose 119 70 - 199 mg/dL [facility] Comment: Interpretive Data Fasting glucose >/= [...] 2022. Calcium 8.7 8.5 - 10.3 mg/dL [facility] Blood 09/15/2024 5:03 AM CDT 09/15/2024 5:25 AM CDT [employer] DO LAB BLOOD ORDERABLES Vicki l Result Performing Organization Address [facility] Co de Phone Number [address] [employer] [email or web address] [address] * POCT glucose (09/14/2024 11:34 PM CDT) Glucose, POC 149 70 - 199 mg/dL Blood 09/14/2024 11:3 4 PM CDT 09/14/2024 11:34 PM CDT [employer] LAB POCT ORDERABLES - DEV ICE Final Result Performing Organization Address [facility] de Phone Number [address] [place] [address] * POCT glucose (09/14/2024 7:36 PM CDT) Glucose, POC 153 70 - 199 mg/dL Blood 09/14/2024 7:36 PM CDT 09/14/2024 7:36 PM CDT [employer] DO LAB POCT ORDERABLES - DEV ICE Final Result Performing Organization Address [facility] Co de Phone Number [address] [place] [address] * POCT glucose (09/14/2024 4:02 PM CDT) Glucose, POC 89 70 - 199 mg/dL Glucose comment 1 Use This Result [facility] Glucose comment 2 RN/MD Notified DENNIS Blood 09/14/2024 4:02 PM CDT 09/14/2024 4:02 PM CDT Jonnathan Pilo Galina DO LAB POCT ORDERABLES - DEV ICE Final Result Performing Organization Address City/[facility] Co de Phone Number DENNIS [address] [place] [address] * POCT glucose (09/14/2024 11:36 AM CDT) Glucose, POC 108 70 - 199 mg/dL Glucose comment 1 Use This Result [facility] Glucose comment 2 RN/ Notified DENNIS Blood 09/14/2024 11:3 6 AM CDT 09/14/2024 11:36 AM CDT [employer] DO LAB POCT ORDERABLES - DEV ICE Final Result Performing Organization Address [facility] de Phone Number DENNIS [address] [place] [address] * (ABNORMAL) POCT glucose (09/14/2024 8:27 AM CDT) Glucose, POC 65(L) 70 - 199 mg/dL Glucose comment 1 Use This Result [facility] Glucose comment 2 RN/ Notified DENNIS Blood 09/14/2024 8:27 AM CDT 09/14/2024 8:27 AM CDT [employer] DO LAB POCT ORDERABLES - DEV ICE Final Result Performing Organization Address [facility] Co de Phone Number YVONNE[address] [place] [address] * Hepatitis B surface antibody (immune status) Blood (09/14/2024 7:15 AM CDT) Pathologist [facility] HBsAb (immune status) Reactive Comment: [...] Final Result Performing Organization Address [facility] Co de Phone Number [address] [employer] [place] [address] * Hepatitis B Surface Antigen Blood (09/14/2024 7:15 AM CDT) [facility] HepBsAg Nonreactive Nonreactive Blood 09/14/2024 7:15 AM CDT 09/14/2024 7:18 AM CDT Tomer Marmolejo MD LAB MICROBIOLOGY - GENERAL OR DERABLES Final Result Performing Organization Address [facility] Co de Phone Number [address] [place] [address] * (ABNORMAL) eGFR (09/14/2024 5:21 AM CDT) [facility] eGFR 3(L) >=60 mL/min/1. 73 m2 [...] MD LAB BLOOD ORDERABLES Final Res ult [place] [id number] [facility] [place] [address] * (ABNORMAL) CBC without differential (09/14/2024 5:21 AM CDT) WBC 8.98 3.80 - 9.90 K/cumm Hgb 7.5(L) 11.9 - 15.5 g/dL [facility] Hct 24.6(L) 35.6 - 45.5 % [facility] Plt 256 150 - 400 K/cumm [facility] MPV 9.2 9.1 - 12.3 fL [facility] RBC 2.95(L) 3.90 - 5.20 M/cumm [facility] MCV 83.4 81.3 - 96.4 fL [facility] MCH 25.4(L) 27.1 - 33.3 pg [facility] MCHC 30.5(L) 32.3 - 35.7 g/dL [facility] RDW CV 16.1(H) 11.1 - 14.9 % [facility] RDW SD 48.2(H) 35.7 - 48.1 fL [facility] NRBC abs 0.00 0.00 - 0.01 K/cumm [facility] Blood 09/14/2024 5:21 AM CDT 09/14/2024 5:36 AM CDT Herbert Dahl MD LAB BLOOD ORDERABLES Final Res ult Performing Organization Address [facility] Co de Phone Number DENNIS [address] [address] * (ABNORMAL) Phosphorus (09/14/2024 5:21 AM CDT) Phosphorus, pl 6.5(H) 2.3 - 4.5 mg/dL Blood 09/14/2024 5:21 AM CDT 09/14/2024 5:36 AM CDT us Herbert Dahl MD LAB BLOOD ORDERABLES Final Res ult Performing Organization Address [facility] Co de Phone Number DENNIS [address] [address] * Magnesium (09/14/2024 5:21 AM CDT) Magnesium 2.0 1.4 - 2.5 mg/dL Blood 09/14/2024 5:21 AM CDT 09/14/2024 5:36 AM CDT Herbert Dahl MD LAB BLOOD ORDERABLES Final Res ult Performing Organization Address [facility] de Phone Number DENNIS [address] [address] * (ABNORMAL) Hemoglobin A1c (09/14/2024 5:21 AM CDT) Hgb A1C 6.2(H) 4.0 - 5.6 % Estimated Average Glucose 131 mg/dL DENNIS Comment: The ADA recommends reporting an estimated Average Glucose (eAG) with all Hemoglobin A1c results using the equation derived from a study of 507 normal and diabetic adults. Minority populations were underrepresented and children were not included. (Diabetes Care 31:9850-0595, 2008). The eAG is not equivalent to a fasting glucose. Blood 09/14/2024 5:21 AM CDT 09/14/2024 5:36 AM CDT us Jonnathan Mojica DO LAB BLOOD ORDERABLES Vicki l Result Performing Organization Address [facility] Co de Phone Number [address] [address] * Vancomycin level random (09/14/2024 5:21 AM CDT) Pathologist [facility] Vancomycin random 34.6 mcg/mL Comment: Interpretive Data No reference ranges have been established for random drug levels. Current Interpretive Data was last revised on 2020. Blood 09/14/2024 5:21 AM CDT 09/14/2024 5:36 AM CDT Herbert Dahl MD LAB BLOOD ORDERABLES Final Res ult Performing Organization Address [facility] de Phone Number [address] [address] * (ABNORMAL) Basic metabolic panel (09/14/2024 5:21 AM CDT) [facility] Sodium 140 135 - 145 mmol/L Potassium, pl 4.4 3.3 - 4.9 mmol/L [facility] Comment:Hemolyzed; Potassium value may be falsely elevated by as much as 1.0 mmol/L. Suggest redraw and reanalysis. Chloride 106 97 - 110 mmol/L [facility] CO2 23 22 - 32 mmol/L [facility] Anion gap 11 2 - 15 mmol/L [facility] BUN 49(H) 6 - 25 mg/dL [facility] Creatinine 13.70(H) 0.60 - 1.10 mg/dL [facility] Glucose 90 70 - 199 mg/dL [facility] Comment: Delta - Results Reviewed Interpretive [...] LAB BLOOD ORDERABLES Final Res ult DENNIS JOSUE [address] [facility] [place] [address] * CT Hand Right WO Contrast (09/14/2024 2:34 AM CDT) Anatomical Region Laterality Modality Upper Extremities Right Computed Tomog thiago 09/14/2024 9:19 AM CDT Narrative 09/14/2024 9:48 AM CDT EXAM DESCRIPTION: CT HAND RIGHT WO CONTRAST REASON FOR STUDY: Soft tissue infection suspected, hand, xray done C/o right hand pain. Was in ED after hypoglycemic event at [place] [facility], She states that upon waking up in [...] Nick Miller M.D. MJ T: Report ID: [id number] Reading Location: [id number] Procedure Note Nick Miller MD - 09/14/2024 EXAM DESCRIPTION: CT HAND RIGHT WO CONTRAST REASON FOR STUDY: Soft tissue infection suspected, hand, xray done C/o right hand pain. Was in ED after hypoglycemic event at [facility],She states that upon waking up in the [...] by Nick Miller M.D. T: Report ID: [id number] Reading Location: [place] [address] us Herbert Dahl MD IMG CT PROCEDURES Final Result * POCT glucose (09/14/2024 1:31 AM CDT) Glucose, POC 94 70 - 199 mg/dL Blood 09/14/2024 1:31 AM CDT 09/14/2024 1:31 AM CDT us Hebrert Dahl MD LAB POCT ORDERABLES - DEVICE F inal Result DENNIS [address] [facility] Department [place] [address] * Blood culture Blood (09/13/2024 11:28 PM CDT) Report Final Report: No growth Comment:Testing performed by : [facility], [address] [facility], [place]., [address] Blood 09/13/2024 11:2 8 PM CDT 09/14/2024 [...] performance characteristics have been verified by the [facility]. For questions about this culture, contact the Microbiology Laboratory at [phone]. Interpretive data was last revised on 23. us Herbert Dahl MD LAB MICROBIOLOGY - GENERAL ORD ERABLES Final Result DENNIS [address] [facility] [place] [address] * Blood culture Blood (09/13/2024 11:28 PM CDT) Report Final Report: No growth Comment:Testing performed by : [facility], [address] [facility], [place]., [address] Blood 09/13/2024 11:2 8 PM CDT 09/14/2024 5:06 AM CDT Ines DENNIS - 09/18/2024 7:01 AM CDT Collection->Peripheral [...] performance characteristics have been verified by the [facility]. For questions about this culture, contact the Microbiology Laboratory at [phone]. Interpretive data was last revised on 23. us Herbert Dahl MD LAB MICROBIOLOGY - GENERAL ORD ERABLES Final Result Performing Organization Address City/[facility]/ZIP Co de Phone Number DENNIS [address] [facility] [place] [address] * hCG, blood, quantitative (09/13/2024 [...] BLOOD ORDERABLES Final Res ult DENNIS [address] [facility] [place] [address] * POCT glucose (09/13/2024 9:24 PM CDT) Glucose, POC 125 70 - 199 mg/dL Blood 09/13/2024 9:24 PM CDT 09/13/2024 9:24 PM CDT us Herbert Dahl MD LAB POCT ORDERABLES - DEVICE F inal Result DENNIS [address] [facility] [place] [employer] [place] [address] * HI CRITICAL CARE ILL/INJURED PATIENT INIT 30-74 MIN [...] Result called to and read back by [id number], DATE: 2024-09-13 16:35:35 BY: [id number] Interpretive Data For further hscTnT resources including the diagnostic algorithm and an aid in interpretation, copy and paste this link: https://nrl.testcatalog.org/show/hsTrop Current Interpretive Data last revised 2020. Trop T hs pct delta -1 % DENNIS Trop T hs interp Insignificant DENNIS Blood 09/13/2024 3:54 PM CDT 09/13/2024 3:57 PM CDT Henrry Macedo MD LAB BLOOD ORDERABLES Final Resu lt Performing Organization Address City/[facility]/ZIP Co de Phone Number YVONNE[address] [place] [address] * aPTT (09/13/2024 3:54 PM CDT) Pathologist [facility] aPTT 25 22 - 37 sec Comment: Interpretive data aPTT test has not been evaluated for monitoring heparin therapy. The anti-Xa is the preferred test. Current interpretive data was last revised on 2019. Blood 09/13/2024 3:54 PM CDT 09/13/2024 3:57 PM CDT Adria Dominguez MD LAB BLOOD ORDERABLES Final Result Performing Organization Address [facility]/ZIP Co de Phone Number [address] [place] [address] * Protime-INR (09/13/2024 3:54 PM CDT) PT [...] Final Result Performing Organization Address [facility] Co de Phone Number YVONNE[address] [employer] [place], [place] [id number] * (ABNORMAL) Troponin T high-sensitivity 2-hour (09/13/2024 1:48 PM CDT) Pathologist [facility] Trop T hs 354(C) <=14 ng/L Comment: Critical Result called to and read back by [email or web address], DATE: 2024-09-13 14:41:09 BY: [id number] Interpretive Data For further hscTnT resources including the diagnostic algorithm and an aid in interpretation, copy and paste this link: https://nrl.testcatalog.org/show/hsTrop Current Interpretive Data last revised 2020. Trop T hs pct delta -1 % DENNIS Trop T hs interp Insignificant DENNIS Blood 09/13/2024 1:48 PM CDT 09/13/2024 2:03 PM CDT Henrry Macedo MD LAB BLOOD ORDERABLES Final Resu lt Performing Organization Address [facility] de Phone Number [facility] [address] [facility] [place] [address] * Influenza A/B, RSV, and COVID-19 PCR Nasopharyngeal (09/13/2024 1:48 PM CDT) [facility] COVID-19 RNA Negative Negative Influenza A RNA Negative Negative DENNIS Influenza B RNA Negative Negative DENNIS RSV RNA Negative Negative [facility] Comment: Interpretive data: Testing performed by [facility]. This test is performed using the [employer] Xpert Xpress CoV-2/Flu/RSV plus assay. This is a multiplex, real-time reverse transcriptase PCR assay intended for the qualitative detection of nucleic acid from SARS-CoV-2, influenza A, influenza B, and respiratory syncytial virus. This assay has been cleared by the [place] Food and Drug administration. The performance characteristics have been verified by the [facility]. Results must be considered in the clinical context, and a negative result does not rule out infection. Interpretive Data last revised 2023 Nasopharyngeal 09/13/2024 1: 48 PM CDT 09/13/2024 2:03 PM CDT Narrative [facility] 09/13/2024 2:52 PM CDT Is the Patient experiencing symptoms consistent with COVID?->Unknown Adria Dominguez MD LAB MICROBIOLOGY - GENERAL ORDERABLES Final Result Performing Organization Address [facility] Co de Phone Number [place] [phone] [facility] [address] * Sepsis Lactate w/ Reflex (09/13/2024 1:48 PM CDT) Sepsis Lactate 0.9 0.7 - 2.0 mmol/L Blood 09/13/2024 1:48 PM CDT 09/13/2024 2:03 PM CDT Adria Dominguez MD LAB BLOOD ORDERABLES Final Result Performing Organization Address City/[facility] Co de Phone Number [place] [phone] [place] [address] * XR Chest 1 Vw Portable (If [...] signed by Nick SCHMID T: Report ID: [id number] Reading Location: [id number] Procedure Note Nick Miller MD - 09/13/2024 [...] signed by Nick SCHMID T: Report ID: [id number] Reading Location: [place] [address] us Adria Dominguez MD IMG XR PROCEDURES [...] signed by Nick SCHMID T: Report ID: [id number] Reading Location: [id number] Procedure Note Nick Miller MD - 09/13/2024 [...] Nick Miller M.D. MJ T: Report ID: [id number] Reading Location: [place] [address] us Adria Dominugez MD IMG XR PROCEDURES Final Re sult * ECG 12 lead (09/13/2024 11:59 AM CDT) Ventricular Rate EKG/Min 77 BPM [facility] Atrial Rate 77 BPM [facility] HI-Interval (MSEC) 142 ms [facility] QRS-Interval (MSEC) 72 ms [facility] QT-Interval (MSEC) 400 ms [facility] QTc 452 ms [facility] P [place] 60 degrees [facility] R [place] 16 degrees [facility] T [place] 102 degrees [facility] Diagnosis Normal sinus rhythm Septal infarct (cited on or before 06-APR-2024) Abnormal ECG When compared with ECG of 06-APR-2024 08:18, Nonspecific T wave abnormality now evident in Lateral leads Confirmed by TITI MONGE M.D. ([id number]) on 09/14/2024 7:54:42 AM [facility] 09/13/2024 11:5 9 AM CDT 09/14/2024 7:54 AM CDT us Adria Dominguez MD ECG ORDERABLES Final Resu lt Performing Organization Address City/[facility] Co de Phone Number [facility] * (ABNORMAL) Troponin T high-sensitivity series (baseline, 2hr, 4hr, 6hr) (09/13/2024 11:50 AM CDT) Trop T hs 358(C) <=14 ng/L Comment: Critical Result called to and read back by [id number], DATE: 2024-09-13 12:26:30 BY: [id number] Interpretive Data For further hscTnT resources including the diagnostic algorithm and an aid in interpretation, copy and paste this link: https://nrl.testcatalog.org/show/hsTrop Current Interpretive Data last revised 2020. Blood 09/13/2024 11:5 0 AM CDT 09/13/2024 11:54 AM CDT us Adria Dominguez MD LAB BLOOD ORDERABLES Final Result Performing Organization Address [facility] Co de Phone Number DENNIS [address] [facility] [place] [address] * (ABNORMAL) eGFR (09/13/2024 11:50 AM CDT) [...] Dominguez MD LAB BLOOD ORDERABLES Final Result [place] [id number] [facility] [place] [address] * (ABNORMAL) Differential, auto (09/13/2024 11:50 AM CDT) Neutrophil abs 6.89(H) 1.50 - 6.50 K/cumm Imm gran abs 0.04 0.00 - 0.10 K/cumm [facility] Lymphocyte abs 2.47 0.80 - 3.30 K/cumm [facility] Monocyte abs 0.62 0.20 - 0.80 K/cumm [facility] Eosinophil abs 0.44 0.00 - 0.50 K/cumm [facility] Basophil abs 0.08 0.00 - 0.10 K/cumm [facility] Neutrophil pct 65.3 % [facility] Comment: Interpretive Data Percent cell count reference ranges are not reported, since discordance with absolute values may lead to misinterpretation of CBC data. Current Interpretive Data was last revised on 2017. Imm gran pct 0.4 % [facility] Comment: Interpretive Data Percent cell count reference ranges are not reported, since discordance with absolute values may lead to misinterpretation of CBC data. Current Interpretive Data was last revised on 2017. Lymphocyte pct 23.4 % [facility] Comment: Interpretive Data Percent cell count reference ranges are not reported, since discordance with absolute values may lead to misinterpretation of CBC data. Current Interpretive Data was last revised on 2017. Monocyte pct 5.9 % [facility] Comment: Interpretive Data Percent cell count reference ranges are not reported, since discordance with absolute values may lead to misinterpretation of CBC data. Current Interpretive Data was last revised on 2017. Eosinophil pct 4.2 % [facility] Comment: Interpretive Data Percent cell count reference ranges are not reported, since discordance with absolute values may lead to misinterpretation of CBC data. Current Interpretive Data was last revised on 2017. Basophil pct 0.8 % [facility] Comment: Interpretive Data Percent cell count reference ranges are not reported, since discordance with absolute values may lead to misinterpretation of CBC data. Current Interpretive Data was last revised on 2017. Blood 09/13/2024 11:5 0 AM CDT 09/13/2024 11:54 AM CDT us Adria Dominguez MD LAB BLOOD ORDERABLES Final Result DENNIS [address] [facility] [place] [address] * (ABNORMAL) Pro B-type natriuretic peptide (09/13/2024 [...] Dominguez MD LAB BLOOD ORDERABLES Final Result [facility] [address] [facility] [place] [address] * (ABNORMAL) CBC with auto differential (09/13/2024 11:50 AM CDT) WBC 10.54(H) 3.80 - 9.90 K/cumm Hgb 8.3(L) 11.9 - 15.5 g/dL [facility] Hct 27.2(L) 35.6 - 45.5 % [facility] Plt 287 150 - 400 K/cumm [facility] MPV 9.8 9.1 - 12.3 fL [facility] RBC 3.26(L) 3.90 - 5.20 M/cumm [facility] MCV 83.4 81.3 - 96.4 fL [facility] MCH 25.5(L) 27.1 - 33.3 pg [facility] MCHC 30.5(L) 32.3 - 35.7 g/dL [facility] RDW CV 16.2(H) 11.1 - 14.9 % [facility] RDW SD 49.4(H) 35.7 - 48.1 fL [facility] NRBC abs 0.00 0.00 - 0.01 K/cumm [facility] Blood 09/13/2024 11:5 0 AM CDT 09/13/2024 11:54 AM CDT Adria Dominguez MD LAB BLOOD ORDERABLES Final Result Performing Organization Address [facility]/ZIP Co de Phone Number DENNIS [address] [facility] [place] [address] * (ABNORMAL) Comprehensive metabolic panel (09/13/2024 11:50 AM CDT) Sodium 140 135 - 145 mmol/L Potassium, pl 4.6 3.3 - 4.9 mmol/L [facility] Chloride 103 97 - 110 mmol/L [facility] CO2 25 22 - 32 mmol/L [facility] Anion gap 12 2 - 15 mmol/L [facility] BUN 48(H) 6 - 25 mg/dL [facility] Creatinine 12.70(H) 0.60 - 1.10 mg/dL [facility] Glucose 216(H) 70 - 199 mg/dL [facility] Comment: Interpretive Data Fasting glucose >/= [...] 2022. Calcium 8.9 8.5 - 10.3 mg/dL [facility] Bilirubin, total 0.2 0.1 - 1.2 mg/dL [facility] Protein, pl 6.4(L) 6.5 - 8.5 g/dL [facility] Albumin 2.8(L) 3.5 - 5.0 g/dL [facility] Alk phos 274(H) 40 - 130 Units/L [facility] ALT 31 7 - 45 Units/L [facility] AST 30 10 - 45 Units/L [facility] Blood 09/13/2024 11:5 0 AM CDT 09/13/2024 11:54 AM CDT Adria Dominguez MD LAB BLOOD ORDERABLES Final Result Performing Organization Address [facility]/ZIP Co de Phone Number DENNIS [address] [facility] [place] [address] * HLA Virtual Crossmatch Recipient Report (09/12/2024 2:08 AM CDT) us Jim Garza MD PhD LAB BLOOD ORDERABLES Vicki lovelace Result * Lipid panel (06/21/2024 7:20 PM CDT) [...] revised on 2017. Triglycerides 112 <=149 mg/dL [facility] Comment: Interpretive Data Ages < [...] revised on 2017. HDL 56 >=40 mg/dL [facility] Comment: Interpretive Data Ages < [...] on 2017. LDL, calculated 62 <=129 mg/dL [facility] Comment: Interpretive Data Ages [...] 3. Shawn Vera et al. DENISE Cardiol. 2019June 23;5(5):540-548. doi: 10.1001/[email or web address].2020.0013 Current Interpretive Data was last revised on 2023. Non-HDL Cholesterol 82 mg/dL [facility] Comment: Interpretive Data Ages < [...] last revised on 2017. Chol/HDL ratio 2 [facility] Blood 06/21/2024 7:20 PM CDT 06/21/2024 7:40 PM CDT Narrative DENNIS [facility] - 06/22/2024 8:42 AM CDT Reflex us Brandan Orr MD LAB BLOOD ORDERABLES Vicki radu Result DENNIS [facility] [place] [address] * Hepatitis C antibody Blood (02/16/2024 11:34 AM IC ENGINEER) Hep C Ab Nonreactive Nonreactive Comment:Antibodies to HCV no t detected. Does NOT exclude the possibility of recent exposure to HCV. Current interpretive data was last revised on 21 Blood 02/16/2024 11:3 4 AM IC ENGINEER 02/16/2024 11:45 AM IC ENGINEER us Tonya Hammonds MD LAB MICROBIOLOGY - GENERAL ORDERABLES Final Result Performing Organization Address [facility] Co de Phone Number DENNIS [facility] [place] [address] * Colonoscopy (07/21/2023 10:23 AM CDT) Anatomical Region Laterality Modality Other Narrative Procedure Note Haritha Stover MD - 07/21/2023 10:23 AM CDT [facility] Patient Name: Bakari Smith Procedure Date: 07/21/2023 10:23 AM Date of : 1980 Admit Type: Outpatient Age: 43 Gender: Female Attending MD: Haritha Stover M.D. Room: [facility] ENDOSCOPY ROOM 02 Note Status: Finalized [...] The scope was passed under direct vision.The [id number] Colonoscope was introducedthrough the anus and advanced to the the cecum, identifiedby appendiceal orifice and ileocecal valve. The colonoscopy was performed without difficulty. The patient tolerated the procedure well. The qualityof the bowel preparation was evaluated using the BBPS ([place] Bowel Preparation Scale) with scores of:Right Colon [...] On: 07/21/2023 10:23 AM Recognized by the [place] [employer] for promoting quality in endoscopy us Haritha Stover MD ENDOSCOPY PROCEDURES Final Res ult * HM MAMMOGRAPHY (06/04/2021) Impressions Rashida Schneider - 06/04/2021 IMPRESSION: 1. Benign mammogram. READ BY: NINO BAJWA MD 06/05/2021 Historical Provider HEALTH MAINTENANCE Final Result from Last 3 Months or Most Recently Relevant to Health Maintenance
--- OUTSIDE RECORDS SUMMARY | 2024-11-29 21:11 | XMS_ITS | Clinical Summary ---
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 Name Role Phone Almita Rizzo RN Unavailable [phone] Beth Fernandez MD Unavailable [phone] Maday Oviedo MD Unavailable [phone] Tomasz Scott DO Unavailable [phone] Meir Nazario MD Unavailable [phone] Sulema Lennon NP Primary Care Provider [phone] Allergies Active Allergy Reactions Criticality Noted Date [...] (04/10/2022): Added automatically from request for surgery [id number] Hypertension 2021 ESRD (end stage renal disease) [...] Encounters Date Type Department Care Team Description 11/18/2024 8:00 PM CDT Social Work [facility] [address] [facility], 8th Floor, [place] [address] 11/17/2024 Telephone [facility] Trans[facility] Kidney [address] Mailstop 55-53-206 [place] [address] Hien Mireles 11/16/2024 Documentation [facility] [address] [facility] [address] Mailstop 85-90-097 [place] [address] Almita Rizzo RN Waitlist Status Update 11/16/2024 Telephone [facility] Transplant Kidney [address] Mailstop 27-21-926 [place] [address] Hien Mireles 11/16/2024 Documentation [facility] [address] [facility] [address] Mailstop 81-85-350 [place] [address] Almita Rizzo, RN Waitlist Maintenance 11/16/2024 Documentation [facility] Transplant Kidney [address] [facility] [address] Mailstop 38-36-[address] [place] [address] Almita Rizzo RN Waitlist Maintenance 11/16/2024 Telephone [facility] Transplant Kidney [address] [facility] [address] Mailstop 87-27-[address] [place] [address] Almita Rizzo RN Waitlist Maintenance 11/04/2024 Telephone [facility] Transplant Kidney [address] [facility] [address] Mailstop 90-46-[address] [place] [address] Almita Rizzo, RN Waitlist Maintenance 10/25/2024 E-Consult [facility] [address] [place] [address] Jonathan Brennan MD PhD ESRD (end stage renal disease) (Primary Dx); Pre-transplant evaluation for kidney transplant 10/21/2024 Documentation [facility] Trans[facility]ney [address] [facility] [address] [place], [place] [address]op 87-26-[address] [place] [address] Vanda Bruce 10/21/2024 Documentation [facility] Trans[facility]ney [address] [facility] [address] Mailstop 72-23-[address] [place] [address] Almita Rizzo, RN Waitlist Status Update (ON HOLD) 10/21/2024 Telephone [facility] Trans[facility] Kidney [address] Mailstop 72-57-965 [place] [address] Val Umaña, DELFINO After Hours; Transplant Organ Offer 10/20/[address] [facility] [address] [place] [address] Sherwin Bhat MD Awaiting organ transplant status 10/20/2024 Orders Only [facility] Trans[facility] Kidney [address] Mailstop 51-92-337 [place] [address] Regina Hernandez RN Awaiting organ transplant status (Primary Dx) 10/20/2024 Documentation [facility] [place] [address] Clayton Robles MD Transfer Notification 10/19/2024 Orders Only [facility] [address] [facility] 12th [place] [address] Sherwin Bhat MD 10/18/2024 Documentation [facility] Trans[facility] Kidney [address] Mailstop 26-46-411 [place] [address] Almita Rizzo RN Waitlist Maintenance 10/06/2024 4:32 PM CDT - 10/06/2024 9:26 PM CDT Emergency [address] [address] Stevie Briggs DO Inguinal strain, right, initial encounter (Primary Dx); Pain of right hand; Secondary hypertension Discharge Disposition: Discharge to home or self care 09/26/2024 10:00 AM CDT - 09/26/2024 11:59 PM CDT Hospital Encounter [address] [address] Pre-kidney transplant, patient on transplant list; ESRD (end stage renal disease) Discharge Disposition: Discharge to home or self care 09/13/2024 12:51 PM CDT - 09/15/2024 2:00 PM CDT Hospital Encounter [place] [id number] Adria Dominguez MD Medavaram, Atul, MD Kruse, Brandon Chase, Hypertensive urgency (Primary Dx); ESRD on peritoneal dialysis (HCC); Troponin level elevated; Chronic anemia; ESRD (end stage renal disease) on dialysis (HCC) [N18.6, Z99.2] Discharge Disposition: Discharge to home or self care 09/12/2024 Orders Only [facility] Surgery [address] [facility] 12th [place] [address] Jim Garza MD PhD from Last 3 Months Immunizations Immunization Administration Dates Next Due Hep B Vaccine 2023,10/06/2022,04/18/2021 Influenza, Mdck, Trivalent, Contains Preservative (MDV) 11/27/2023 Influenza, Quadrivalent, Spl it, Intramuscular 02/03/2023,12/27/2021 PPD TEST 11/03/2024,,05/25/2023,07/30 Pneumococcal Conjugate 7-Valent 03/03/2018 Pneumococcal Conjugate PCV 13 04/18/2021 Pneumococcal Conjugate Pcv20 2023 Pneumococcal Polysaccharide PPV23 07/09/2017 Pneumococcal, Unspecified 04/18/2021 Tdap 07/09/2017 Surgical History Surgery Date Site/Laterality Comments SECTION 1994,1995,2001 CHOLECYSTECTOMY 02/23/2017 - 02/22/2018 APPENDECTOMY 02/23/2017 - [...] Tobacco: Never Tobacco Cessation:Counseling Given: Not Answered [facility] Utilities Answer Date Recorded In the past [...] week 09/14/2024 How often do you attend [facility] ch or jainism services? More than 4 times per year 09/14/2024 Do you belong to any clubs o r organizations such as temple groups, unions, fraternal or athletic groups, or [...] any time in the past 12 m [facility], were you homeless or living in a skilled nursing (including now)? No 09/14/2024 Personal Safety Answer Date Recorded Have you ever been in or are you currently in a harmful physical or emotional relationship or is someone making you feel afraid or unsafe? 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 Gender Identity Not on file Sexual [...] Eye Exam 06/22/2025 06/22/2024 eGFR 10/06/2025 10/06/2024, 08/24, 09/14/2024, Additional history exists DTaP/Tdap/Td Vaccine (2 [...] this topic Medical Devices Implanted Type Area Letterset Press Set Up Operator Device Identifier Shelf Expiration Date Model / Serial / Lot [employer] [id number] [place] 15fr 62cm 2 Cuff Radiopaque Peritoneal Curl Catheter - Sn/A - [id number] Implanted:Qty : 1 on 03/14/2021 by Gildardo Leggett MD at [facility] Catheter N/A: Abdomen [employer] 07/01/2025 [id number] / N/A / [id number] Description:Peritoneal Dialy sis Catheter, Curl Cath, 2 Cuffs Graft Vasc 45cm 4-6mm [place] Acuse[employer] Eptfe 3 Layer Kink t - [id number] - [id number] Implanted:Qty : 1 on 05/08/2022 by Uche Katz MD at [facility] Graft Left: Arm [employer]l [employer] [id number] 05/21/2024 [id number] / [id number] / 00 Procedures Procedure Name Priority Date/Time [...] DEVICE Routine 09/13/2024 9 :24 PM CDT SD CRITICAL CARE ILL/INJURED PATIENT INIT 30-74 MIN [...] HEPATITIS C ANTIBODY Routine 02/16/2024 11:34 AM 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 KR T: Report ID: [id number] Reading Location: [id number] Procedure Note Albert Lopes MD - 10/06/2024 [...] signed by Albert ORNELAS T: Report ID: [id number] Reading Location: [id number] Jackie RAPHAEL IM XR PROCEDURES Final Resul t * XR [...] signed by Albert ORNELAS T: Report ID: [id number] Reading Location: [id number] Procedure Note Albert Lopes MD - 10/06/2024 [...] Albert Lopes M.D. KR T: Report ID: [id number] Reading Location: [place] [address] Jackie RAPHAEL IMG XR PROCEDURES Final Resul [...] LAB BLOOD ORDERABLES Final Re sult DENNIS [address] [facility] [place] [address] * Differential, auto (10/06/2024 2:27 PM CDT) Neutrophil abs 6.30 1.50 - 6.50 K/cumm Imm gran abs 0.04 0.00 - 0.10 K/cumm [facility] Lymphocyte abs 2.11 0.80 - 3.30 K/cumm [facility] Monocyte abs 0.68 0.20 - 0.80 K/cumm [facility] Eosinophil abs 0.45 0.00 - 0.50 K/cumm [facility] Basophil abs 0.05 0.00 - 0.10 K/cumm [facility] Neutrophil pct 65.4 % [facility] Comment: Interpretive Data Percent cell count reference ranges are not reported, since discordance with absolute values may lead to misinterpretation of CBC data. Current Interpretive Data was last revised on 2017. Imm gran pct 0.4 % [facility] Comment: Interpretive Data Percent cell count reference ranges are not reported, since discordance with absolute values may lead to misinterpretation of CBC data. Current Interpretive Data was last revised on 2017. Lymphocyte pct 21.9 % [facility] Comment: Interpretive Data Percent cell count reference ranges are not reported, since discordance with absolute values may lead to misinterpretation of CBC data. Current Interpretive Data was last revised on 2017. Monocyte pct 7.1 % [facility] Comment: Interpretive Data Percent cell count reference ranges are not reported, since discordance with absolute values may lead to misinterpretation of CBC data. Current Interpretive Data was last revised on 2017. Eosinophil pct 4.7 % [facility] Comment: Interpretive Data Percent cell count reference ranges are not reported, since discordance with absolute values may lead to misinterpretation of CBC data. Current Interpretive Data was last revised on 2017. Basophil pct 0.5 % [facility] Comment: Interpretive Data Percent cell count reference ranges are not reported, since discordance with absolute values may lead to misinterpretation of CBC data. Current Interpretive Data was last revised on 2017. Blood 10/06/2024 2:27 PM CDT 10/06/2024 2:30 PM CDT Jackie RAPHAEL LAB BLOOD ORDERABLES Final Re sult Performing Organization Address City/[facility]/ZIP Co de Phone Number [address] [address] * (ABNORMAL) CBC with auto differential (10/06/2024 2:27 PM CDT) [facility] WBC 9.63 3.80 - 9.90 K/cumm Hgb 7.5(L) 11.9 - 15.5 g/dL [facility] Hct 24.4(L) 35.6 - 45.5 % [facility] Plt 218 150 - 400 K/cumm [facility] MPV 10.6 9.1 - 12.3 fL [facility] RBC 2.93(L) 3.90 - 5.20 M/cumm [facility] MCV 83.3 81.3 - 96.4 fL [facility] MCH 25.6(L) 27.1 - 33.3 pg [facility] MCHC 30.7(L) 32.3 - 35.7 g/dL [facility] RDW CV 16.9(H) 11.1 - 14.9 % [facility] RDW SD 50.4(H) 35.7 - 48.1 fL [facility] NRBC abs 0.00 0.00 - 0.01 K/cumm [facility] Blood 10/06/2024 2:27 PM CDT 10/06/2024 2:30 PM CDT Jackie RAPHAEL LAB BLOOD ORDERABLES Final Re sult Performing Organization Address City/[facility]/ZIP Co de Phone Number [address] [address] * (ABNORMAL) Comprehensive metabolic panel (10/06/2024 2:27 PM CDT) Sodium 138 135 - 145 mmol/L Potassium, pl 4.1 3.3 - 4.9 mmol/L [facility] Chloride 99 97 - 110 mmol/L [facility] CO2 24 22 - 32 mmol/L [facility] Anion gap 15 2 - 15 mmol/L [facility] BUN 49(H) 6 - 25 mg/dL [facility] Creatinine 14.10(H) 0.60 - 1.10 mg/dL [facility] Glucose 248(H) 70 - 199 mg/dL [facility] Comment: Interpretive Data Fasting glucose [...] 2022. Calcium 8.6 8.5 - 10.3 mg/dL [facility] Bilirubin, total 0.2 0.1 - 1.2 mg/dL [facility] Protein, pl 6.4(L) 6.5 - 8.5 g/dL [facility] Albumin 2.8(L) 3.5 - 5.0 g/dL [facility] Alk phos 321(H) 40 - 130 Units/L [facility] ALT 55(H) 7 - 45 Units/L [facility] AST 39 10 - 45 Units/L [facility] Blood 10/06/2024 2:27 PM CDT 10/06/2024 2:30 PM CDT us Jackie RAPHAEL LAB BLOOD ORDERABLES Final Re sult DENNIS [address] 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 Single Antigen Antibody Screen ordered. Miriam Garner MD LAB BLOOD ORDERAB LES Final Result Performing Organization Address City/[facility] Co de Phone Number HISTOTRAC * [...] a method developed and validated by the [facility] laboratory based on an FDA-approved IVD kit (LABScreen Single-Antigen, [employer], [place], [place]). All patient serum samples are pretreated with EDTA before the screen to prevent complement interference. Additional serum treatments, such as adsorption and DTT treatment, may be performed as indicated. Interpretive comments: Low risk: MFI [id number]. Moderate risk: MFI [id number]. Increased risk: MFI >/= 5000. The presence [...] antigens to avoid. Testing performed at the [facility], [address] [place] [address], 5th floor, [place], [address]. CLIA # [id number]. Amber Berry, Ph.D., First Leveler, [facility] Laboratory Jonathan Brennan M.D., Ph.D., Sound Effects Supervisor, [facility] Laboratory Rehana Alarcon, Ph.D., CLIA Sound Effects Supervisor, [facility] Current methodology and interpretive comments last revised on 03/20/2022. us Miriam Garner MD LAB BLOOD ORDERAB LES Final Result Performing Organization Address City/[facility] Co de Phone Number HISTOTRAC * POCT glucose (09/15/2024 11:26 AM CDT) Glucose, POC 128 70 - 199 mg/dL Glucose comment 1 RN/MD Notified DENNIS JOSUE Blood 09/15/2024 11:2 6 AM CDT 09/15/2024 11:26 AM CDT us Jonnathan Mojica DO LAB POCT ORDERABLES - DEV ICE Final Result Performing Organization Address City/[facility]/ZIP Co de Phone Number DENNIS [address] [facility] Department [place] [address] * POCT glucose (09/15/2024 7:41 AM CDT) Glucose, POC 88 70 - 199 mg/dL Glucose comment 1 Use This Result [facility] Glucose comment 2 RN/MD Notified DENNIS Blood 09/15/2024 7:41 AM CDT 09/15/2024 7:41 AM CDT Jonnathan Pilo Galina DO LAB POCT ORDERABLES - DEV ICE Final Result Performing Organization Address [facility] Co de Phone Number [address] [place] [address] * (ABNORMAL) eGFR (09/15/2024 5:03 AM CDT) [facility] eGFR 3(L) >=60 mL/min/1. 73 m2 Comment: [...] AM CDT 09/15/2024 5:25 AM CDT Jonnathan Pilo Glaina DO LAB BLOOD ORDERABLES Vicki l Result Performing Organization Address City/[facility]/ZIP Co de Phone Number [address] [place] [address] * Differential, auto (09/15/2024 5:03 AM CDT) Neutrophil abs 4.75 1.50 - 6.50 K/cumm Imm gran abs 0.03 0.00 - 0.10 K/cumm [facility] Lymphocyte abs 2.41 0.80 - 3.30 K/cumm [facility] Monocyte abs 0.57 0.20 - 0.80 K/cumm [facility] Eosinophil abs 0.43 0.00 - 0.50 K/cumm [facility] Basophil abs 0.04 0.00 - 0.10 K/cumm [facility] Neutrophil pct 57.7 % [facility] Comment: Interpretive Data Percent cell count reference ranges are not reported, since discordance with absolute values may lead to misinterpretation of CBC data. Current Interpretive Data was last revised on 2017. Imm gran pct 0.4 % [facility] Comment: Interpretive Data Percent cell count reference ranges are not reported, since discordance with absolute values may lead to misinterpretation of CBC data. Current Interpretive Data was last revised on 2017. Lymphocyte pct 29.3 % [facility] Comment: Interpretive Data Percent cell count reference ranges are not reported, since discordance with absolute values may lead to misinterpretation of CBC data. Current Interpretive Data was last revised on 2017. Monocyte pct 6.9 % [facility] Comment: Interpretive Data Percent cell count reference ranges are not reported, since discordance with absolute values may lead to misinterpretation of CBC data. Current Interpretive Data was last revised on 2017. Eosinophil pct 5.2 % [facility] Comment: Interpretive Data Percent cell count reference ranges are not reported, since discordance with absolute values may lead to misinterpretation of CBC data. Current Interpretive Data was last revised on 2017. Basophil pct 0.5 % [facility] Comment: Interpretive Data Percent cell count reference ranges are not reported, since discordance with absolute values may lead to misinterpretation of CBC data. Current Interpretive Data was last revised on 2017. Blood 09/15/2024 5:03 AM CDT 09/15/2024 5:25 AM CDT us Jonnathan Mojica DO LAB BLOOD ORDERABLES Vicki l Result [place] [id number] [facility] [place] [address] * (ABNORMAL) CBC with auto differential (09/15/2024 5:03 AM CDT) [facility] WBC 8.23 3.80 - 9.90 K/cumm Hgb 7.4(L) 11.9 - 15.5 g/dL [facility] Hct 24.4(L) 35.6 - 45.5 % [facility] Plt 269 150 - 400 K/cumm [facility] MPV 9.6 9.1 - 12.3 fL [facility] RBC 2.93(L) 3.90 - 5.20 M/cumm [facility] MCV 83.3 81.3 - 96.4 fL [facility] MCH 25.3(L) 27.1 - 33.3 pg [facility] MCHC 30.3(L) 32.3 - 35.7 g/dL [facility] RDW CV 16.1(H) 11.1 - 14.9 % [facility] RDW SD 48.9(H) 35.7 - 48.1 fL [facility] NRBC abs 0.00 0.00 - 0.01 K/cumm [facility] Blood 09/15/2024 5:03 AM CDT 09/15/2024 5:25 AM CDT [employer] (now [employer]) LAB BLOOD ORDERABLES Vicki l Result Performing Organization Address City/[facility]/ZIP Co de Phone Number [address] [address] * (ABNORMAL) Erythrocyte sedimentation rate (09/15/2024 5:03 AM CDT) [facility] Erythrocyte sedimentation rate 52(H) 1 - 20 mm/hr Blood 09/15/2024 5:03 AM CDT 09/15/2024 5:25 AM CDT [employer] (now [employer]) LAB BLOOD ORDERABLES Vicki l Result Performing Organization Address City/[facility]/ZIP Co de Phone Number [address] [address] * (ABNORMAL) CRP (acute phase) (09/15/2024 5:03 AM CDT) [facility] CRP 12.1(H) <=10.0 mg/L Blood 09/15/2024 5:03 AM CDT 09/15/2024 5:25 AM CDT us Jonnathan Mojica DO LAB BLOOD ORDERABLES Vicki l Result Performing Organization Address [facility] Co de Phone Number [address] [address] * (ABNORMAL) Phosphorus (09/15/2024 5:03 AM CDT) [facility] Phosphorus, pl 6.8(H) 2.3 - 4.5 mg/dL Blood 09/15/2024 5:03 AM CDT 09/15/2024 5:25 AM CDT us Herbert Dahl MD LAB BLOOD ORDERABLES Final Res ult Performing Organization Address [facility] Co de Phone Number [address] [address] * Magnesium (09/15/2024 5:03 AM CDT) [facility] Magnesium 1.9 1.4 - 2.5 mg/dL Blood 09/15/2024 5:03 AM CDT 09/15/2024 5:25 AM CDT us Herbert Dahl MD LAB BLOOD ORDERABLES Final Res ult Performing Organization Address [facility] Co de Phone Number [address] [address] * (ABNORMAL) Basic metabolic panel (09/15/2024 5:03 AM CDT) [facility] Sodium 138 135 - 145 mmol/L Potassium, pl 4.2 3.3 - 4.9 mmol/L [facility] Chloride 103 97 - 110 mmol/L [facility] CO2 24 22 - 32 mmol/L [facility] Anion gap 11 2 - 15 mmol/L [facility] BUN 48(H) 6 - 25 mg/dL [facility] Creatinine 13.80(H) 0.60 - 1.10 mg/dL [facility] Glucose 119 70 - 199 mg/dL [facility] Comment: Interpretive Data Fasting glucose [...] 2022. Calcium 8.7 8.5 - 10.3 mg/dL [facility] Blood 09/15/2024 5:03 AM CDT 09/15/2024 5:25 AM CDT [employer] (now [employer]) LAB BLOOD ORDERABLES Vicki l Result Performing Organization Address [facility]/ZIP Co de Phone Number [address] [place] [address] * POCT glucose (09/14/2024 11:34 PM CDT) [facility] Glucose, POC 149 70 - 199 mg/dL Blood 09/14/2024 11:3 4 PM CDT 09/14/2024 11:34 PM CDT iJ[employer] DO LAB POCT ORDERABLES - DEV ICE Final Result Performing Organization Address [facility]/ZIP Co de Phone Number [address] [place] [address] * POCT glucose (09/14/2024 7:36 PM CDT) Glucose, POC 153 70 - 199 mg/dL Blood 09/14/2024 7:36 PM CDT 09/14/2024 7:36 PM CDT Jonnathan [email or web address] Galina DO LAB POCT ORDERABLES - DEV ICE Final Result Performing Organization Address City/[facility] Co de Phone Number DENNIS [address] [place] [address] * POCT glucose (09/14/2024 4:02 PM CDT) Glucose, POC 89 70 - 199 mg/dL Glucose comment 1 Use This Result [facility] Glucose comment 2 RN/MD Notified YVONNEARACELY Blood 09/14/2024 4:02 PM CDT 09/14/2024 4:02 PM CDT [employer] DO LAB POCT ORDERABLES - DEV ICE Final Result Performing Organization Address [facility] Co de Phone Number DENNIS [address] [place] [address] * POCT glucose (09/14/2024 11:36 AM CDT) Glucose, POC 108 70 - 199 mg/dL Glucose comment 1 Use This Result [facility] Glucose comment 2 RN/MD Notified YVONNEARACELY Blood 09/14/2024 11:3 6 AM CDT 09/14/2024 11:36 AM CDT [employer] Galina DO LAB POCT ORDERABLES - DEV ICE Final Result Performing Organization Address City/[facility] Co de Phone Number DENNIS [address] [place] [address] * (ABNORMAL) POCT glucose (09/14/2024 8:27 AM CDT) Glucose, POC 65(L) 70 - 199 mg/dL Glucose comment 1 Use This Result [facility] Glucose comment 2 RN/MD Notified DENNIS Blood 09/14/2024 8:27 AM CDT 09/14/2024 8:27 AM CDT Jonnathan Mojica LAB POCT ORDERABLES - DEV ICE Final Result Performing Organization Address [facility] de Phone Number DENNIS [facility] [place] [address] * Hepatitis B surface antibody (immune status) Blood (09/14/2024 7:15 AM CDT) HBsAb (immune status) Reactive Comment: Interpretive Data [...] HBsAb (immune status) index 136.0 mIUnits/m L [facility] Blood 09/14/2024 7:15 AM CDT 09/14/2024 7:18 AM CDT Tomer Marmolejo MD LAB MICROBIOLOGY - GENERAL OR DERABLES Final Result Performing Organization Address [facility] de Phone Number [facility] [address] [place] [address] * Hepatitis B Surface Antigen Blood (09/14/2024 7:15 AM CDT) HepBsAg Nonreactive Nonreactive Blood 09/14/2024 7:15 AM CDT 09/14/2024 7:18 AM CDT Tomer Marmolejo MD LAB MICROBIOLOGY - GENERAL OR DERABLES Final Result [facility] [place] [address] * (ABNORMAL) eGFR (09/14/2024 5:21 AM CDT) [facility] eGFR 3(L) >=60 mL/min/1. 73 m2 Comment: [...] LAB BLOOD ORDERABLES Final Res ult DENNIS [address] [place] [address] * (ABNORMAL) CBC without differential (09/14/2024 5:21 AM CDT) [facility] WBC 8.98 3.80 - 9.90 K/cumm Hgb 7.5(L) 11.9 - 15.5 g/dL [facility] Hct 24.6(L) 35.6 - 45.5 % [facility] Plt 256 150 - 400 K/cumm [facility] MPV 9.2 9.1 - 12.3 fL [facility] RBC 2.95(L) 3.90 - 5.20 M/cumm [facility] MCV 83.4 81.3 - 96.4 fL [facility] MCH 25.4(L) 27.1 - 33.3 pg [facility] MCHC 30.5(L) 32.3 - 35.7 g/dL [facility] RDW CV 16.1(H) 11.1 - 14.9 % [facility] RDW SD 48.2(H) 35.7 - 48.1 fL [facility] NRBC abs 0.00 0.00 - 0.01 K/cumm [facility] Blood 09/14/2024 5:21 AM CDT 09/14/2024 5:36 AM CDT us Herbert Dahl MD LAB BLOOD ORDERABLES Final Res ult Performing Organization Address [facility] Co de Phone Number Y[address] [place] [address] * (ABNORMAL) Phosphorus (09/14/2024 5:21 AM CDT) Phosphorus, pl 6.5(H) 2.3 - 4.5 mg/dL Blood 09/14/2024 5:21 AM CDT 09/14/2024 5:36 AM CDT us Herbert Dahl MD LAB BLOOD ORDERABLES Final Res ult Performing Organization Address [facility] Co de Phone Number [address] [place] [address] * Magnesium (09/14/2024 5:21 AM CDT) Magnesium 2.0 1.4 - 2.5 mg/dL Blood 09/14/2024 5:21 AM CDT 09/14/2024 5:36 AM CDT us Herbert Dahl MD LAB BLOOD ORDERABLES Final Res ult Performing Organization Address [facility]/ZIP Co de Phone Number [address] [place] [address] * (ABNORMAL) Hemoglobin A1c (09/14/2024 5:21 AM CDT) [facility] Hgb A1C 6.2(H) 4.0 - 5.6 % Estimated Average Glucose 131 mg/dL DENNIS Comment: The ADA recommends reporting an estimated Average Glucose (eAG) with all Hemoglobin A1c results using the equation derived from a study of 507 normal and diabetic adults. Minority populations were underrepresented and children were not included. (Diabetes Care 31:5377-3568, 2008). The eAG is not equivalent to a fasting glucose. Blood 09/14/2024 5:21 AM CDT 09/14/2024 5:36 AM CDT Jonnathan Mojica DO LAB BLOOD ORDERABLES Vicki l Result Performing Organization Address [facility]/ZIP Co de Phone Number [address] [address] * Vancomycin level random (09/14/2024 5:21 AM CDT) [facility] Vancomycin random 34.6 mcg/mL Comment: Interpretive Data No reference ranges have been established for random drug levels. Current Interpretive Data was last revised on 2020. Blood 09/14/2024 5:21 AM CDT 09/14/2024 5:36 AM CDT Herbert Dahl MD LAB BLOOD ORDERABLES Final Res ult Performing Organization Address [facility]/ZIP Co de Phone Number [address] [place] [address] * (ABNORMAL) Basic metabolic panel (09/14/2024 5:21 AM CDT) [facility] Sodium 140 135 - 145 mmol/L Potassium, pl 4.4 3.3 - 4.9 mmol/L DENNIS Comment:Hemolyzed; Potassium value may be falsely elevated by as much as 1.0 mmol/L. Suggest redraw and reanalysis. Chloride 106 97 - 110 mmol/L [facility] CO2 23 22 - 32 mmol/L [facility] Anion gap 11 2 - 15 mmol/L [facility] BUN 49(H) 6 - 25 mg/dL [facility] Creatinine 13.70(H) 0.60 - 1.10 mg/dL [facility] Glucose 90 70 - 199 mg/dL [facility] Comment: Delta - Results Reviewed Interpretive [...] 2022. Calcium 8.8 8.5 - 10.3 mg/dL [facility] Blood 09/14/2024 5:21 AM CDT 09/14/2024 5:36 AM CDT us Herbert Dahl MD LAB BLOOD ORDERABLES Final Res ult [place] [id number] [facility] [place] [address] * CT Hand Right WO Contrast (09/14/2024 2:34 AM CDT) Anatomical Region Laterality Modality Upper Extremities Right Computed Tomog thiago 09/14/2024 9:19 AM CDT Narrative 09/14/2024 9:48 AM CDT EXAM DESCRIPTION: CT HAND RIGHT WO CONTRAST REASON FOR STUDY: Soft tissue infection suspected, hand, xray done C/o right hand pain. Was in ED after hypoglycemic event at [employer], She states that upon waking up in [...] Nick Miller M.D. MJ T: Report ID: [id number] Reading Location: [id number] Procedure Note Nick Miller MD - 09/14/2024 EXAM DESCRIPTION: CT HAND RIGHT WO CONTRAST REASON FOR STUDY: Soft tissue infection suspected, hand, xray done C/o right hand pain. Was in ED after hypoglycemic event at [employer],She states that upon waking up in the [...] Nick Miller M.D. MJ T: Report ID: [id number] Reading Location: [id number] us Herbert Dahl MD IMG CT PROCEDURES Final Result * POCT glucose (09/14/2024 1:31 AM CDT) Glucose, POC 94 70 - 199 mg/dL Blood 09/14/2024 1:31 AM CDT 09/14/2024 1:31 AM CDT us Herbert Dahl MD LAB POCT ORDERABLES - DEVICE F inal Result Performing Organization Address [facility]/ZIP Co de Phone Number DENNIS JOSUE [address] [facility] [place] [address] * Blood culture Blood (09/13/2024 11:28 PM CDT) Report Final Report: No growth Comment:Testing performed by : [facility], [address] [facility] [place] [address] Blood 09/13/2024 11:2 8 PM CDT 09/14/2024 [...] performance characteristics have been verified by the [facility]. For questions about this culture, contact the Microbiology Laboratory at [phone]. Interpretive data was last revised on 23. Herbert Dahl MD LAB MICROBIOLOGY - GENERAL ORD ERABLES Final Result Performing Organization Address [facility]/ZIP Co de Phone Number DENNIS JOSUE [address] [facility] [place] [address] * Blood culture Blood (09/13/2024 11:28 PM CDT) Report Final Report: No growth Comment:Testing performed by : [facility], [address] [facility], [place] [address] Blood 09/13/2024 11:2 8 PM CDT 09/14/2024 [...] performance characteristics have been verified by the [facility]. For questions about this culture, contact the Microbiology Laboratory at [phone]. Interpretive data was last revised on 23. us Herbert Dahl MD LAB MICROBIOLOGY - GENERAL ORD ERABLES Final Result DENNIS JOSUE [address] [facility] [place] [address] * hCG, blood, quantitative (09/13/2024 10:46 PM [...] 6 PM CDT 09/13/2024 10:46 PM CDT Herbert Dahl MD LAB BLOOD ORDERABLES Final Res ult Performing Organization Address [facility] de Phone Number YVON[address] [place] [address] * POCT glucose (09/13/2024 9:24 PM CDT) Glucose, POC 125 70 - 199 mg/dL Blood 09/13/2024 9:24 PM CDT 09/13/2024 9:24 PM CDT Herbert Dahl MD LAB POCT ORDERABLES - DEVICE F inal Result Performing Organization Address [facility] de Phone Number [address] [place] [address] * SD CRITICAL CARE ILL/INJURED PATIENT INIT 30-74 MIN [...] Result called to and read back by [id number], DATE: 2024-09-13 16:35:35 BY: [id number] Interpretive Data For further hscTnT resources including the diagnostic algorithm and an aid in interpretation, copy and paste this link: https://nrl.testcatalog.org/show/hsTrop Current Interpretive Data last revised 2020. Trop T hs pct delta -1 % DENNIS JOSUE Trop T hs interp Insignificant DENNIS JOSUE Blood 09/13/2024 3:54 PM CDT 09/13/2024 3:57 PM CDT Henrry Macedo MD LAB BLOOD ORDERABLES Final Resu lt DENNIS [address] [facility] [place] [address] * aPTT (09/13/2024 3:54 PM CDT) aPTT 25 22 - 37 sec Comment: Interpretive data aPTT test has not been evaluated for monitoring heparin therapy. The anti-Xa is the preferred test. Current interpretive data was last revised on 2019. Blood 09/13/2024 3:54 PM CDT 09/13/2024 3:57 PM CDT Adria Dominguez MD LAB BLOOD ORDERABLES Final Result Performing Organization Address [facility] de Phone Number DENNIS [address] [address] * Protime-INR (09/13/2024 3:54 PM CDT) PT [...] BLOOD ORDERABLES Final Result Performing Organization Address [facility] de Phone Number EDNNIS [address] [address] * (ABNORMAL) Troponin T high-sensitivity 2-hour (09/13/2024 1:48 PM CDT) Trop T hs 354(C) <=14 ng/L Comment: Critical Result called to and read back by [id number], DATE: 2024-09-13 14:41:09 BY: [id number] Interpretive Data For further hscTnT resources including the diagnostic algorithm and an aid in interpretation, copy and paste this link: https://nrl.testcatalog.org/show/hsTrop Current Interpretive Data last revised 2020. Trop T hs pct delta -1 % DENNIS Trop T hs interp Insignificant DENNIS Blood 09/13/2024 1:48 PM CDT 09/13/2024 2:03 PM CDT Henrry Macedo MD LAB BLOOD ORDERABLES Final Resu lt Performing Organization Address [facility] Co de Phone Number [address] [address] * Influenza A/B, RSV, and COVID-19 PCR Nasopharyngeal (09/13/2024 1:48 PM CDT) [facility] COVID-19 RNA Negative Negative Influenza A RNA Negative Negative [facility] Influenza B RNA Negative Negative [facility] RSV RNA Negative Negative [facility] Comment: Interpretive data: Testing performed by [facility]. This test is performed using the [employer] Xpert Xpress CoV-2/Flu/RSV plus assay. This is a multiplex, real-time reverse transcriptase PCR assay intended for the qualitative detection of nucleic acid from SARS-CoV-2, influenza A, influenza B, and respiratory syncytial virus. This assay has been cleared by the [place] Food and Drug administration. The performance characteristics have been verified by the [facility]. Results must be considered in the clinical context, and a negative result does not rule out infection. Interpretive Data last revised 2023 Nasopharyngeal 09/13/2024 1: 48 PM CDT 09/13/2024 2:03 PM CDT Narrative [facility] - 09/13/2024 2:52 PM CDT Is the Patient experiencing symptoms consistent with COVID?->Unknown Adria Dominguez MD LAB MICROBIOLOGY - GENERAL ORDERABLES Final Result Performing Organization Address [facility] Co de Phone Number [facility] [address] [place] [address] * Sepsis Lactate w/ Reflex (09/13/2024 1:48 PM CDT) [facility] Sepsis Lactate 0.9 0.7 - 2.0 mmol/L Blood 09/13/2024 1:48 PM CDT 09/13/2024 2:03 PM CDT Adria Dominguez MD LAB BLOOD ORDERABLES Final Result DENNIS [address] [facility] [place] [address] * XR Chest 1 Vw Portable (If [...] Nick Miller M.D. MJ T: Report ID: [id number] Reading Location: [place] [address] Procedure Note Nick Miller MD - 09/13/2024 EXAM DESCRIPTION: XR CHEST 1 VIEW REASON FOR STUDY: Shortness of breath Pt presents to ED for SOB since 99 this morning Endorses: shortnessof breath at rest [...] Nick Miller M.D. MJ T: Report ID: [id number] Reading Location: [id number] us Adria Dominguez MD IMG XR PROCEDURES Final Re sult * XR Hand Right 3 or More Views (09/13/2024 12:24 PM CDT) Anatomical Region Laterality Modality Upper Extremities, Hand Right Computed Radiography 09/13/2024 12:3 4 PM CDT Narrative 09/13/2024 12:35 PM CDT EXAM DESCRIPTION: XR HAND RIGHT 3 OR MORE VIEWS REASON FOR STUDY: Pain. Pt presents to ED for SOB since 99 this morning Endorses: shortness of breath at [...] signed by Nick SCHMID T: Report ID: [id number] Reading Location: [id number] Procedure Note Nick Miller MD - 09/13/2024 [...] signed by Nick SCHMID T: Report ID: [id number] Reading Location: [id number] us Adria Dominguez MD IMG XR PROCEDURES Final Re sult * ECG 12 lead (09/13/2024 11:59 AM CDT) Ventricular Rate EKG/Min 77 BPM [facility] Atrial Rate [address] [facility] SD-Interval (MSEC) 142 ms [facility] QRS-Interval (MSEC) 72 ms [facility] QT-Interval (MSEC) 400 ms [facility] QTc 452 ms [facility] P Savage 60 degrees [facility] R Savage 16 degrees [facility] T Savage 102 degrees [facility] Diagnosis Normal sinus rhythm Septal infarct (cited on or before 06-APR-2024) Abnormal ECG When compared with ECG of 06-APR-2024 08:18, Nonspecific T wave abnormality now evident in Lateral leads Confirmed by TITI MONGE M.D. ([id number]) on 09/14/2024 7:54:42 AM [facility] 09/13/2024 11:5 9 AM CDT 09/14/2024 7:54 AM CDT Adria Dominguez MD ECG ORDERABLES Final Resu lt Performing Organization Address [facility]/ZIP Co de Phone Number [facility] * (ABNORMAL) Troponin T high-sensitivity series (baseline, 2hr, 4hr, 6hr) (09/13/2024 11:50 AM CDT) Pathologist [facility] Trop T hs 358(C) <=14 ng/L Comment: Critical Result called to and read back by [id number], DATE: 2024-09-13 12:26:30 BY: [email or web address] Interpretive Data For further hscTnT resources including the diagnostic algorithm and an aid in interpretation, copy and paste this link: https://nrl.testcatalog.org/show/hsTrop Current Interpretive Data last revised 2020. Blood 09/13/2024 11:5 0 AM CDT 09/13/2024 11:54 AM CDT Adria Dominguez MD LAB BLOOD ORDERABLES Final Result DENNIS [address] [facility] [place] [address] * (ABNORMAL) eGFR (09/13/2024 11:50 AM CDT) Pathologist [facility] eGFR 3(L) >=60 mL/min/1. 73 m2 [...] Dominguez MD LAB BLOOD ORDERABLES Final Result [facility] [address] [facility] [place] [address] * (ABNORMAL) Differential, auto (09/13/2024 11:50 AM CDT) Pathologist [facility] Neutrophil abs 6.89(H) 1.50 - 6.50 K/cumm Imm gran abs 0.04 0.00 - 0.10 K/cumm [facility] Lymphocyte abs 2.47 0.80 - 3.30 K/cumm [facility] Monocyte abs 0.62 0.20 - 0.80 K/cumm [facility] Eosinophil abs 0.44 0.00 - 0.50 K/cumm [facility] Basophil abs 0.08 0.00 - 0.10 K/cumm [facility] Neutrophil pct 65.3 % [facility] Comment: Interpretive Data Percent cell count reference ranges are not reported, since discordance with absolute values may lead to misinterpretation of CBC data. Current Interpretive Data was last revised on 2017. Imm gran pct 0.4 % [facility] Comment: Interpretive Data Percent cell count reference ranges are not reported, since discordance with absolute values may lead to misinterpretation of CBC data. Current Interpretive Data was last revised on 2017. Lymphocyte pct 23.4 % [facility] Comment: Interpretive Data Percent cell count reference ranges are not reported, since discordance with absolute values may lead to misinterpretation of CBC data. Current Interpretive Data was last revised on 2017. Monocyte pct 5.9 % [facility] Comment: Interpretive Data Percent cell count reference ranges are not reported, since discordance with absolute values may lead to misinterpretation of CBC data. Current Interpretive Data was last revised on 2017. Eosinophil pct 4.2 % [facility] Comment: Interpretive Data Percent cell count reference ranges are not reported, since discordance with absolute values may lead to misinterpretation of CBC data. Current Interpretive Data was last revised on 2017. Basophil pct 0.8 % [facility] Comment: Interpretive Data Percent cell count reference ranges are not reported, since discordance with absolute values may lead to misinterpretation of CBC data. Current Interpretive Data was last revised on 2017. Blood 09/13/2024 11:5 0 AM CDT 09/13/2024 11:54 AM CDT us Adria Dominguez MD LAB BLOOD ORDERABLES Final Result [facility] [address] [facility] [place] [address] * (ABNORMAL) Pro B-type natriuretic peptide (09/13/2024 [...] Heart J. 2006:27:330-337. 2. Thomas RW, Magnus LEBLANC. J. AM Castro Cardiol: Cardiovasc Imag. 2009;2: 216- 225. Interpretive Data Last Revised Date: 2017. Blood 09/13/2024 11:5 0 AM CDT 09/13/2024 11:54 AM CDT Adria Dominguez MD LAB BLOOD ORDERABLES Final Result [facility] [address] [facility] [place] [address] * (ABNORMAL) CBC with auto differential (09/13/2024 11:50 AM CDT) Pathologist [facility] WBC 10.54(H) 3.80 - 9.90 K/cumm Hgb 8.3(L) 11.9 - 15.5 g/dL [facility] Hct 27.2(L) 35.6 - 45.5 % [facility] Plt 287 150 - 400 K/cumm [facility] MPV 9.8 9.1 - 12.3 fL [facility] RBC 3.26(L) 3.90 - 5.20 M/cumm [facility] MCV 83.4 81.3 - 96.4 fL [facility] MCH 25.5(L) 27.1 - 33.3 pg [facility] MCHC 30.5(L) 32.3 - 35.7 g/dL [facility] RDW CV 16.2(H) 11.1 - 14.9 % [facility] RDW SD 49.4(H) 35.7 - 48.1 fL [facility] NRBC abs 0.00 0.00 - 0.01 K/cumm [facility] Blood 09/13/2024 11:5 0 AM CDT 09/13/2024 11:54 AM CDT Adria Dominguez MD LAB BLOOD ORDERABLES Final Result [facility] [address] [facility] [place] [address] * (ABNORMAL) Comprehensive metabolic panel (09/13/2024 11:50 AM CDT) Sodium 140 135 - 145 mmol/L Potassium, pl 4.6 3.3 - 4.9 mmol/L [facility] Chloride 103 97 - 110 mmol/L [facility] CO2 25 22 - 32 mmol/L [facility] Anion gap 12 2 - 15 mmol/L [facility] BUN 48(H) 6 - 25 mg/dL [facility] Creatinine 12.70(H) 0.60 - 1.10 mg/dL [facility] Glucose 216(H) 70 - 199 mg/dL [facility] Comment: Interpretive Data Fasting glucose [...] 2022. Calcium 8.9 8.5 - 10.3 mg/dL [facility] Bilirubin, total 0.2 0.1 - 1.2 mg/dL [facility] Protein, pl 6.4(L) 6.5 - 8.5 g/dL [facility] Albumin 2.8(L) 3.5 - 5.0 g/dL [facility] Alk phos 274(H) 40 - 130 Units/L [facility] ALT 31 7 - 45 Units/L [facility] AST 30 10 - 45 Units/L [facility] Blood 09/13/2024 11:5 0 AM CDT 09/13/2024 11:54 AM CDT us Adria Dominguez MD LAB BLOOD ORDERABLES Final Result [facility] [address] [facility] [place] [address] * HLA Virtual Crossmatch Recipient Report (09/12/2024 2:08 AM CDT) us Jim Garza MD PhD LAB BLOOD ORDERABLES Vicki l Result * Lipid panel (06/21/2024 7:20 PM [...] on 2017. Triglycerides 112 <=149 mg/dL [facility] Comment: Interpretive Data Ages < or [...] on 2017. HDL 56 >=40 mg/dL [facility] Comment: Interpretive Data Ages < or [...] on 2017. LDL, calculated 62 <=129 mg/dL [facility] Comment: Interpretive Data Ages < or [...] on 2023. Non-HDL Cholesterol 82 mg/dL [facility] Comment: Interpretive Data Ages < or [...] last revised on 2017. Chol/HDL ratio 2 [facility] Blood 06/21/2024 7:20 PM CDT 06/21/2024 7:40 PM CDT Narrative [facility] - 06/22/2024 8:42 AM CDT Reflex us Brandan Orr MD LAB BLOOD ORDERABLES Vicki l Result Performing Organization Address [facility] Co de Phone Number [facility] Department [place] [address] * Hepatitis C antibody Blood (02/16/2024 11:34 AM SMALL MACHINE BINDERY OPERATOR) Hep C Ab Nonreactive Nonreactive Comment:Antibodies to HCV no t detected. Does NOT exclude the possibility of recent exposure to HCV. Current interpretive data was last revised on 21 Blood 02/16/2024 11:3 4 AM SMALL MACHINE BINDERY OPERATOR 02/16/2024 11:45 AM SMALL MACHINE BINDERY OPERATOR us Tonya Hammonds MD LAB MICROBIOLOGY - GENERAL ORDERABLES Final Result Performing Organization Address [facility] Co de Phone Number [facility] Department [place] [address] * Colonoscopy (07/21/2023 10:23 AM CDT) Anatomical Region Laterality Modality Other Narrative Procedure Note Early, Haritha Coronado MD - 07/21/2023 10:23 AM CDT [facility] Patient Name: Bakari Smith Procedure Date: 07/21/2023 10:23 AM Date of : 1980 Admit Type: Outpatient Age: 43 Gender: Female Attending MD: Haritha Stover M.D. Room: [facility] ENDOSCOPY ROOM 02 Note Status: Finalized [...] The scope was passed under direct vision.The [id number] Colonoscope was introducedthrough the anus and advanced to the the cecum, identifiedby appendiceal orifice and ileocecal valve. The colonoscopy was performed without difficulty. The patient tolerated the procedure well. The qualityof the bowel preparation was evaluated using the BBPS ([place] Bowel Preparation Scale) with scores of:Right Colon [...] On: 07/21/2023 10:23 AM Recognized by the [place] [employer] for promoting quality in endoscopy Haritha Stover MD ENDOSCOPY PROCEDURES Final Res ult * HM MAMMOGRAPHY (06/04/2021) Impressions Rashida Schneider - 06/04/2021 IMPRESSION: 1. Benign mammogram. READ BY: NINO BAJWA MD 06/05/2021 Historical Provider HEALTH MAINTENANCE Final Result from Last 3 Months or Most Recently Relevant to Health Maintenance Insurance [employer] [facility] MEDICARE MEDICARE MEDICARE MEDICARE Advance Directives For more information, please contact: [phone] * Full Code (Latest Code Status on File) Date Activated Date Inactivated Comments 09/13/2024 9:22 PM 09/15/2024 6:14 PM * Full Code Date Activated Date Inactivated Comments 06/22/2024 8:11 AM 06/23/2024 7:28 PM * Full Code Date Activated Date Inactivated Comments 07/21/2023 9:59 AM 07/21/2023 3:56 PM Care Teams Senior Linux Systems Administrator Relationship Specialty Start Date End Date Sulema Lennon NP [address] [place] [address] PCP - General Nurse Practitioner 09/14/24 Almita Rizzo, RN [address] [place] [address] Scoop Driver 04/04/21 Beth Fernandez MD [address] [place] [address] Referring Physician Nephrology 04/04/21 Maday Oviedo MD [address] [place] [address] Neurology 09/12/22 Tomasz Scott DO [address] [place] [address] Storage Facility Rental Clerk Cardiology 09/16/22 Meir Nazario MD [address] [place] [address] Obstetrics and Gynecology 04/11/24
--- OUTSIDE RECORDS SUMMARY | 2024-11-29 21:11 | XMS_ITS | Encounter Summary ---
Author Organization [facility] Address [facility] [place] [address] Care Team Providers Care Nurse Staff Industrial Name Role Phone Sulema Lennon NP Primary Care Provider [phone] Encounter Details Date Type Department Care Team (Late st Contact Info) Description 10/21/2024 Prep for Procedure [place] [facility] [address] [id number] Raulito Valdez MD [facility]. [facility] [address] [place], [place] [id number] Social History Tobacco Use Types Packs/Day Years Used Date Smoking Tobacco: Never Alcohol Use Standard Drinks/Week Comments Not Currently 0 (1 standard drink = 0.6 oz pur e alcohol) [facility] Utilities Answer Date Recorded In the past [address] [facility], gas, oil, or water iFulfillment threatened to shut off services in your home? No 10/11/2024 Humiliation, Afraid, Rape, and Kick questionnair e Answer Date Recorded Within the last year, have y ou been afraid of your partner or ex-partner? No 10/11/2024 Within the last year, have y ou been humiliated or emotionally abused in other ways by your partner or ex-partner? No Within the last year, have y ou been kicked, hit, slapped, or otherwise physically hurt by your partner or ex-partner? No 10/11/2024 Within the last year, have y ou been raped or forced to have any kind of sexual activity by your partner or ex-partner? No 10/11/2024 Overall Financial Resource Strain (CARDIA) Answe r Date Recorded How hard is it for you to pa y for the very basics like food, housing, medical care, and heating? Not hard at all 10/11/2024 Hunger Vital Sign Answer Date Recorded Within the past 12 months, y ou worried that your food would run out before you got the money to buy more. Never true 10/12/19 25 Within the past 12 months, t he food you bought just didn't last and you didn't have money to get more. Never true 10/11/2024 PRAPARE - Transportation Answer Date Re corded In the past 12 months, has l ack of transportation kept you from medical appointments or from getting medications? No 09/23 In the past 12 months, has l ack of transportation kept you from meetings, work, or from getting things needed for daily living? No 10/11/2024 Housing Stability Vital Sign Answer Pito e Recorded In the last 12 months, was t here a time when you were not able to pay the mortgage or rent on time? No 10/11/2024 In the past 12 months, how m any times have you moved where you were living? 0 10/11/2024 At any time in the past 12 m [facility], were you homeless or living in a fci (including now)? No 10/11/2024 Comments Unknown Sex and Gender Information Value Date Recorded Sex Assigned at Female 10/10/2024 6:06 PM CDT Legal Sex Female 5:54 PM CDT Gender Identity Not on file Sexual Orientation Not on file documented as of this encounter Functional Status * Are you deaf or do you have serious difficulty hearing Answer Date of Assessment Author Status No 10/11/2024 12:18 AM CDT Addie Drummond RN Active * Are you blind or do you have serious difficulty seeing, even when wearing glasses? Answer Date of Assessment Author Status No 10/11/2024 12:18 AM CDT Addie Drummond RN Active * Do you have serious difficulty walking or climbing stairs? Answer Date of Assessment Author Status No 10/11/2024 12:18 AM CDT Addie Drummond RN Active * Do you have difficulty dressing or bathing? Answer Date of Assessment Author Status Yes 10/11/2024 12:18 AM CDT Addie Drummond RN Active * Because of a physical, mental, or emotional condition, do you have difficulty doing errands alone such as visiting a doctor's office or shopping? Answer Date of Assessment Author Status No 10/11/2024 12:18 AM SOTEROT Addie Drummond RN Active documented as of this encounter Mental Status * Because of a physical, mental, or emotional condition, do you have serious difficulty concentrating, remembering, or making decisions? Answer Entry Date Author Status No 10/11/2024 12:18 AM CDT Addie Drummond RN Active documented in this encounter Plan of Treatment Upcoming Encounters Date Type Department Care Team (Late st Contact Info) Description 03/22/2025 10:40 AM YARN PACKER Office Visit [facility] - [address] [place] [address] Brian Denise MD [facility] [facility] [address] [place] [address] documented as of this encounter Visit Diagnoses Diagnosis ESRD on hemodialysis ([facility])- Primary End stage renal disease documented in this encounter Additional Health Concerns 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
--- OUTSIDE RECORDS SUMMARY | 2024-11-29 21:11 | XMS_ITS ---
Author Organization [facility] Address [address] [place] [address] Care Team Providers Care Spot Man Name Role Phone Almita Rizzo RN Unavailable [phone] Beth Fernandez MD Unavailable [phone] Maday Oviedo MD Unavailable [phone] Tomasz Scott DO Unavailable [phone] Meir Nazario MD Unavailable [phone] Sulema Lennon NP Primary Care Provider [phone] Transplant Episode Kidney Candidate [facility] ([place], [place]) [facility] waitlisted on 09/10/2021 Marked as Inactive on 11/16/2024 Reason: 04 - Insurance Issues Kidney CoordinatorAlmita Rizzo RN Fax: N/A Email: N/A Scores Score Value Updated Exceptions/Reas ons CPRA Not available EPTS (Calc) 56 11/29/2024 [place] 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 Mellitus - Type II Care Team Name Role Phone Fax Email Almita Rizzo RN Kidney Coordinator [phone] N/A N/A Beth Fernandez MD Referring Physician [phone] N/A Hien Mireles Presiding Judge [phone] N/A N/A Events Pre-Transplant Referred: 02/07/2021 Evaluation began: 04/04/2021 Committee: 09/09/2021 UNOS qualified: 01/21/2021 Center waitlisted: 09/10/2021 Appointments (10/30/2024 - 12/30/2024) When With Visit Type Description 11/18/2024 Transplant HOSPITAL OUTPATI ENT VISIT Dialysis History Dialysis History Start End Type Comments Center 10/20/2024 Hemo T/TH/Sat [facility] 04/23/2021 10/20/[address] Beth Fernandez [facility] 01/21/2021 04/23/2021 Hemo M/W/F [facility] Dialysis Center Information Center Phone Fax Address [facility] [phone] [place] [address] [facility] [phone] [address] [facility] [address] [facility] [address]
--- OUTSIDE RECORDS SUMMARY | 2024-11-29 21:11 | XMS_ITS | Data Portability ---
[facility] Organization [facility] Address [address] [place] [address] Care Team Providers Care Highway Worker Name Role Phone DEYVI ROSALES OTHER JESSIE DICKSON Paper Sealer [facility] Lubrication Worker BETH FERNANDEZ Family Medicine Physician Assistant ELÍAS MIX Lubrication Worker Assessment No assessment recorded. Plan of Treatment Reminders Order Date Submit Date Provider Last Modified By Organization Details Last Modified Time Details Appointments None recorded. Lab HbA1c (hemoglobin A1c), blood 2023 024 macho In-Office Order, Internal Use Only DO Not Attach Compendium DO Not Attach Compendium, Do Not Delete/merge, [id number] 12:47:19 glucose, fingerstick , blood 2023 024 macho In-Office Order, Internal Use Only DO Not Attach Compendium DO Not Attach Compendium, Do Not Delete/merge, [id number] 4 12:47:21 CMP, serum or plasma 2023 024 MAHAMED MAYA, [address], [address], [place], [address], 4 23:07:49 albumin/cre atinine, mass ratio, urine 2023 024 MHAAMED MAYA, [address], [address], [place], [address], 4 10:15:48 TSH, ultra-sensi tive, serum 2023 024 [facility]HAMED [facility], [address], [address], [place], [address], 4 10:15:48 CBC 2023 024 MAHAMED [facility], [address], [address], [place], [address], 4 23:07:50 lipid panel, serum 2023 024 MAHAMED [facility], [address], [place], [address], 4 23:07:48 vitamin D, 25-hydroxy, total, serum 2023 024 MAHAMED [facility], [address], [place], [address], 4 10:15:50 HbA1c (hemoglobin A1c), blood 2022 023 macho In-Office Order, Internal Use Only DO Not Attach Compendium DO Not Attach Compendium, Do Not Delete/merge, [id number] 15:31:49 glucose, fingerstick , blood 2022 023 [email or web address] In-Office Order, Internal Use Only DO Not Attach Compendium DO Not Attach Compendium, Do Not Delete/merge, [id number] 3 15:31:48 Referral neurologist referral - Head [...] Orders gabap[facility] 100 mg capsule 2023 024 [id number] [address] [place], [address], 4 20:08:16 fluticasone propionate 50 mcg/actuati on nasal spray,suspe nsion 2023 024 [facility], [address] [place], [address], 4 12:47:15 montelukast 10 mg tablet 2023 024 [facility], [address] [place], [address], 4 12:47:16 Kym Allergy 180 mg tablet 2023 024 [facility], [address] [place], [address], 4 12:47:15 Colace 100 mg capsule 2023 024 [facility], [address] [place], [address], 4 12:47:15 Lantus Solostar U-100 Insulin 100 unit/mL (3 mL) subcutaneou s pen 2023 024 [facility], [address] [place], [address], 4 12:47:15 OneTouch Ultra Test strips 2023 024 [facility], [address] [place], [address], 4 15:31:16 gabapentin 100 mg capsule 2023 024 [facility], [address] [place] [address], [address], 4 12:47:15 Diflucan 150 mg tablet 2023 024 [facility], [address] [place] [address], [address], 4 12:47:15 Colace 100 mg capsule 2022 023 [facility], [address] [place] [address], [address], 3 15:32:12 polyethylen e glycol 3350 17 gram/dose oral powder 2022 023 [facility], [address] [place] [address], [address], 3 20:15:56 fluticasone propionate 50 mcg/actuati on nasal spray,suspe nsion 2022 023 [facility], [address] [place] [address], [address], 3 15:32:14 montelukast 10 mg tablet 2022 023 [facility], [address] [place] [address], [address], 3 15:32:14 Kym Allergy 180 mg tablet 2022 023 [facility], [address] [place] [address], [address], 3 15:32:13 Lantus Solostar U-100 Insulin 100 unit/mL (3 mL) subcutaneou s pen 2022 023 [facility], [address] [place], [address], 3 15:32:15 Admelog SoloStar U-100 Insulin lispro 100 unit/mL subcutaneou s pen 2022 024 [facility], [address] [place], [address], 4 12:43:37 aspirin 81 mg tablet,juan yed release 2022 023 [facility], [address] [place], [address], 3 14:50:06 Lipitor 80 mg tablet 2022 023 [facility], [address] [place], [address], 3 14:56:45 Patient TargetsNo targets recorded. Patient Instructions Encounter Date Encounter Id Patient Instructions Last Modified By Organization Details Last Modified Time 06/11/2022 [id number] A healthy lifest yle: care instructions yarauz [...] dialysis yarauz Not available 06/11/2022 15:17:16 10/06/2022 [id number] allergies: care instructions yarauz Not available 10/06/2022 [...] medicine yarauz Not available 10/06/2022 15:08:09 02/03/2023 [id number] influenza (flu) vaccine: care instructions yarauz Not [...] diet see dentist every 6 months see 3rd pressman every 1-2 years vaccine yarauz Not available 02/03/2023 12:29:16 2023 [id number] allergies: care instructions yarauz Not available 2023 [...] medicine yarauz Not available 2023 12:31:18 09/08/2023 [id number] A healthy lifest yle: care instructions [email or web address] Not available 09/08/2023 20:08:14 Consider use of rae, kenyon, peppermint, coriander, fennel and cayenne pepper to stimulate your appetite. Lemon helps with limited taste. Please talk to your providers about being hungry but not having desire to eat. [email or web address] Not available 09/08/2023 20:08:14 Reason for Referral Neurologist Referral for His tory of cerebrovascular accident History of cerebrovascular accident Head CT showed small region of decreased attenuation at left occipital lobe suspicious for relatively recent, potentially acute infarct which is new since 01/06/2022. The patient had no focal deficits or weakness. Referring Physician: Jessie Dickson, Family Medicine, Encounter Date: 06/11/2022 Results Created Date Observation Date Name Description Value Unit Range Abnormal Flag Note LastModifiedBy Organization Detail LastModifiedTime 05/28/1905/27/2022 PTH (para thyro id hormo ne), intac t, serum or plasm a PTH (parathyroid hormone), intact, serum or plasma 205 text: 18.0-8 0.0 high Not Available Not Available 11/04/2024 14:06:28 05/28/1905/27/2022 cortez tin, serum or plasm a ferritin, serum or plasma 554 text: 10.0-2 91.0 high Not Available Not Available 11/04/2024 14:06:28 05/28/1905/27/2022 bun (bloo d urea nitro gen), serum or plasm a BUN (blood urea nitrogen), serum or plasma 35 text: 9.0-23 .0 high Not Available Not Available 11/04/2024 14:06:29 05/28/1905/27/2022 gluco se, QN [mass /volu me], serum or plasm a glucose, qn [mass/volume ], serum or plasma 118 text: 70.0-9 9.0 high Not Available Not Available 11/04/2024 14:06:28 05/28/1905/27/2022 alkal ine phosp hatas e, serum or plasm a alkaline phosphatase, serum or plasma 107 text: 46.0-1 16.0 Not Available Not Available 11/04/2024 14:06:28 05/28/1905/27/2022 prote in, total , serum protein, total, serum 5.9 text: 5.7-8. 2 Not Available Not Available 11/04/2024 14:06:28 05/28/1905/27/2022 potas sium, serum or plasm a potassium, serum or plasma 3.5 text: 3.5-5. 5 Not Available Not Available 11/04/2024 14:06:28 05/28/19 23 05/27/2022 album in, QN, BCG dye, serum or plasm a albumin, qn, bcg dye, serum or plasma 3.2 text: 3.4-4. 8 low Not Available Not Available 11/04/2024 14:06:28 05/28/1905/27/2022 bicar bonat e, quant , serum bicarbonate, quant, serum 31 text: 20.0-3 1.0 Not Available Not Available 11/04/2024 14:06:28 05/28/1905/27/2022 phosp horus , serum or plasm a phosphorus, serum or plasma 5.5 text: 2.4-5. 1 high Not Available Not Available 11/04/2024 14:06:28 05/28/1905/27/2022 sodiu m, serum or plasm a sodium, serum or plasma 138 text: 132.0- 146.0 Not Available Not Available 11/04/2024 14:06:28 05/28/19 23 05/27/2022 Lacta te dehyd rogen ase [Enzy matic activ ity/v olume ] in Serum or Plasm a lactate dehydrogenas e [enzymatic activity/vol ume] in serum or plasma 212 text: 120.0- 246.0 Not Available Not Available 11/04/2024 14:06:28 05/28/19 23 05/27/2022 ALT (rolanda ine amino trans feras e), serum or plasm a ALT (alanine aminotransfe rase), serum or plasma 10 text: 10.0-4 9.0 Not Available Not Available 11/04/2024 14:06:28 05/28/19 23 05/27/2022 magne sium, serum or plasm a magnesium, serum or plasma 1.9 text: 1.3-2. 7 Not Available Not Available 11/04/2024 14:06:28 05/28/19 23 05/27/2022 creat inine , serum or plasm a creatinine, serum or plasma 11.18 text: 0.5-1. 1 high Not Available Not Available 11/04/2024 14:06:28 05/28/19 23 05/27/2022 AST/S GOT (aspa rtate amino trans feras e), serum or plasm a AST/SGOT (aspartate aminotransfe rase), serum or plasma 18 text: 0.0-33 .0 Not Available Not Available 11/04/2024 14:06:05/28/19 23 05/27/2022 mcv, blood MCV, blood 87.9 text: 80.0-1 00.0 Not Available Not Available 11/04/2024 14:06:05/28/1905/27/2022 wbc, auto, blood WBC, auto, blood 9.8 text: 4.5-11 .0 Not Available Not Available 11/04/2024 14:06:05/28/1905/27/2022 hemat ocrit , autom ated count , blood hematocrit, automated count, blood 32 text: 37.0-4 7.0 low Not Available Not Available 11/04/2024 14:06:05/28/1905/27/2022 RBC count , blood RBC count, blood 3.65 text: 4.2-5. 4 low Not Available Not Available 11/04/2024 14:06:05/28/1905/27/2022 plate lets, auto, blood platelets, auto, blood 348 text: 150.0- 400.0 Not Available Not Available 11/04/2024 14:06:05/28/1905/27/2022 hemog lobin (Hb), blood hemoglobin (Hb), blood 10.1 text: 12.0-1 6.0 low Not Available Not Available 11/04/2024 14:06:29 05/28/1905/27/2022 retic ulocy te count , auto, blood reticulocyte count, auto, blood 1.4 text: 0.8-2. 1 Not Available Not Available 11/04/2024 14:06:29 05/28/1905/27/2022 eosin ophil s, auto, blood , absol algaaciq eosinophils, auto, blood, absolute 492.5 text: 0.0-70 0.0 Not Available Not Available 11/04/2024 14:06:29 05/29/1905/28/2022 vitam in D, 25-hy droxy , total , serum vitamin D, 25-hydroxy, total, serum 10.9 text: 30.0-1 00.0 low Not Available Not Available 11/04/2024 14:06:27 05/29/1905/28/2022 iron- monty ng capac ity, unsat urate d, serum iron-binding capacity, unsaturated, serum 171 text: 80.0-3 75.0 Not Available Not Available 11/04/2024 14:06:28 05/29/1905/28/2022 calci um, serum or plasm a calcium, serum or plasma 8.8 text: 8.7-10 .4 Not Available Not Available 11/04/2024 14:06:27 05/29/1905/28/2022 iron, serum iron, serum 39 text: 50.0-1 70.0 low Not Available Not Available 11/04/2024 14:06:27 09/05/1909/04/2022 PTH (para thyro id hormo ne), intac t, serum or plasm a PTH (parathyroid hormone), intact, serum or plasma 198 text: 18.0-8 0.0 high Not Available Not Available 11/04/2024 14:06:25 09/05/1909/04/2022 cortez tin, serum or plasm a ferritin, serum or plasma 491 text: 10.0-2 91.0 high Not Available Not Available 11/04/2024 14:06:25 09/05/1909/04/2022 bun (bloo d urea nitro gen), serum or plasm a BUN (blood urea nitrogen), serum or plasma 39 text: 9.0-23 .0 high Not Available Not Available 11/04/2024 14:06:26 09/05/19 23 09/04/2022 gluco se, QN [mass /volu me], serum or plasm a glucose, qn [mass/volume ], serum or plasma 332 text: 70.0-9 9.0 high Not Available Not Available 11/04/2024 14:06:09/05/19 23 09/04/2022 prote in, total , serum protein, total, serum 5.9 text: 5.7-8. 2 Not Available Not Available 11/04/2024 14:06:09/05/19 23 09/04/2022 alkal ine phosp hatas e, serum or plasm a alkaline phosphatase, serum or plasma 113 text: 46.0-1 16.0 Not Available Not Available 11/04/2024 14:06:09/05/19 23 09/04/2022 HDL tanya stero l, serum HDL cholesterol, serum 49 text: 40.0-6 0.0 Not Available Not Available 11/04/2024 14:06:09/05/19 23 09/04/2022 potas sium, serum or plasm a potassium, serum or plasma 3.8 text: 3.5-5. 5 Not Available Not Available 11/04/2024 14:06:09/05/19 23 09/04/2022 album in, QN, BCG dye, serum or plasm a albumin, qn, bcg dye, serum or plasma 3.1 text: 3.4-4. 8 low Not Available Not Available 11/04/2024 14:06:09/05/19 23 09/04/2022 bicar bonat e, quant , serum bicarbonate, quant, serum 25 text: 20.0-3 1.0 Not Available Not Available 11/04/2024 14:06:09/05/19 23 09/04/2022 phosp horus , serum or plasm a phosphorus, serum or plasma 5.3 text: 2.4-5. 1 high Not Available Not Available 11/04/2024 14:06:09/05/1909/04/2022 sodiu m, serum or plasm a sodium, serum or plasma 133 text: 132.0- 146.0 Not Available Not Available 11/04/2024 14:06:09/05/19 23 09/04/2022 Lacta te dehyd rogen ase [Enzy matic activ ity/v olume ] in Serum or Plasm a lactate dehydrogenas e [enzymatic activity/vol ume] in serum or plasma 273 text: 120.0- 246.0 high Not Available Not Available 11/04/2024 14:06:26 09/05/19 23 09/04/2022 ALT (rolanda ine amino trans feras e), serum or plasm a ALT (alanine aminotransfe rase), serum or plasma 22 text: 10.0-4 9.0 Not Available Not Available 11/04/2024 14:06:26 09/05/19 23 09/04/2022 magne sium, serum or plasm a magnesium, serum or plasma 1.9 text: 1.3-2. 7 Not Available Not Available 11/04/2024 14:06:26 09/05/1909/04/2022 creat inine , serum or plasm a creatinine, serum or plasma 10.83 text: 0.5-1. 1 high Not Available Not Available 11/04/2024 14:06:26 09/05/1909/04/2022 tanya stero l, total , serum cholesterol, total, serum 138 text: 0.0-19 9.0 Not Available Not Available 11/04/2024 14:06:25 09/05/1909/04/2022 AST/S GOT (aspa rtate amino trans feras e), serum or plasm a AST/SGOT (aspartate aminotransfe rase), serum or plasma 25 text: 0.0-33 .0 Not Available Not Available 11/04/2024 14:06:25 09/05/1909/04/2022 prote in, total , serum protein, total, serum 87 text: 0.0-14 9.0 Not Available Not Available 11/04/2024 14:06:25 09/05/1909/04/2022 mcv, blood MCV, blood 89.2 text: 80.0-1 00.0 Not Available Not Available 11/04/2024 14:06:27 09/05/1909/04/2022 wbc, auto, blood WBC, auto, blood 8.5 text: 4.0-11 .0 Not Available Not Available 11/04/2024 14:06:27 09/05/1909/04/2022 hemat ocrit , autom ated count , blood hematocrit, automated count, blood 40.4 text: 37.0-4 7.0 Not Available Not Available 11/04/2024 14:06:27 09/05/19 23 09/04/2022 RBC count , blood RBC count, blood 4.53 text: 3.85-5 .2 Not Available Not Available 11/04/2024 14:06:27 09/05/19 23 09/04/2022 plate lets, auto, blood platelets, auto, blood 342 text: 140.0- 450.0 Not Available Not Available 11/04/2024 14:06:27 09/05/19 23 09/04/2022 hemog lobin (Hb), blood hemoglobin (Hb), blood 12.3 text: 12.0-1 6.0 Not Available Not Available 11/04/2024 14:06:27 09/05/19 23 09/04/2022 retic ulocy te count , auto, blood reticulocyte count, auto, blood 1.54 text: 0.7-2. 5 Not Available Not Available 11/04/2024 14:06:27 09/05/1909/04/2022 eosin ophil s, auto, blood , absol algaaciq eosinophils, auto, blood, absolute 364 text: 0.0-70 0.0 Not Available Not Available 11/04/2024 14:06:26 09/05/19 23 09/04/2022 vitam in D, 25-hy droxy , total , serum vitamin D, 25-hydroxy, total, serum 25.4 low Not Available Not Available 11/04/2024 14:06:27 09/05/1909/04/2022 urea nitro gen, urine urea nitrogen, urine 158 Not Available Not Available 10/24 14:06:27 09/05/19 23 09/04/2022 creat inine , urine creatinine, urine 60.86 Not Available Not Available 10/24 14:06:27 09/05/19 23 09/04/2022 urea nitro gen, QN, 24h post dialy sis, perit calderón fluid urea nitrogen, qn, 24H post dialysis, peritoneal fluid 29 Not Available Not Available 10/24 14:06:27 09/06/1909/05/2022 iron- monty ng capac ity, unsat urate d, serum iron-binding capacity, unsaturated, serum 152 text: 80.0-3 75.0 Not Available Not Available 11/04/2024 14:06:25 09/06/19 23 09/05/2022 calci um, serum or plasm a calcium, serum or plasma 8.8 text: 8.7-10 .4 Not Available Not Available 11/04/2024 14:06:25 09/06/1909/05/2022 iron, serum iron, serum 39 text: 50.0-1 70.0 low Not Available Not Available 11/04/2024 14:06:25 10/07/1910/06/2022 HbA1c (hemo globi n A1c), blood HbA1c 8 Not Available In-Office Order Internal Use Only DO Not Attach Compendium DO Not Attach Compendium, Do Not Delete/merge, [id number] 10/06/2022 14:28:33 10/07/1910/06/2022 gluco se, finge rstic k, blood Blood Glucose: mg/dl 162 Not Available In-Off ice Order Internal Use Only DO Not Attach Compendium DO Not Attach Compendium, Do Not Delete/merge, [id number] 10/06/2022 14:28:35 03/04/19 24 03/04/2023 alumi num, serum aluminum, serum 10 text: 0.0-9. 0 Not Available Not Available 11/04/2024 14:06:25 03/05/19 24 03/05/2023 urea nitro gen, urine urea nitrogen, urine 229 Not Available Not Available 10/24 14:06:22 03/05/19 24 03/05/2023 creat inine , urine creatinine, urine 68.97 Not Available Not Available 10/24 14:06:22 03/05/19 24 03/05/2023 vitam in D, 25-hy droxy , total , serum vitamin D, 25-hydroxy, total, serum 18.9 low Not Available Not Available 11/04/2024 14:06:22 03/05/19 24 03/05/2023 mcv, blood MCV, blood 90.5 text: 80.0-1 00.0 Not Available Not Available 11/04/2024 14:06:03/05/19 24 03/05/2023 hemat ocrit , autom ated count , blood hematocrit, automated count, blood 33.6 text: 37.0-4 7.0 low Not Available Not Available 11/04/2024 14:06:03/05/19 24 03/05/2023 plate lets, auto, blood platelets, auto, blood 273 text: 140.0- 450.0 Not Available Not Available 11/04/2024 14:06:03/05/19 24 03/05/2023 hemog lobin (Hb), blood hemoglobin (Hb), blood 10.2 text: 12.0-1 6.0 low Not Available Not Available 11/04/2024 14:06:22 03/05/19 24 03/05/2023 RBC count , blood RBC count, blood 3.71 text: 3.85-5 .2 low Not Available Not Available 11/04/2024 14:06:03/05/19 24 03/05/2023 retic ulocy te count , auto, blood reticulocyte count, auto, blood 1.4 text: 0.7-2. 5 Not Available Not Available 11/04/2024 14:06:03/05/19 24 03/05/2023 eosin ophil s, auto, blood , absol algaaciq eosinophils, auto, blood, absolute 219 text: 0.0-70 0.0 Not Available Not Available 11/04/2024 14:06:03/05/19 24 03/05/2023 wbc, auto, blood WBC, auto, blood 6.1 text: 4.0-11 .0 Not Available Not Available 11/04/2024 14:06:03/05/19 24 03/05/2023 iron- monty ng capac ity, unsat urate d, serum iron-binding capacity, unsaturated, serum 135 text: 80.0-3 75.0 Not Available Not Available 11/04/2024 14:06:03/05/19 24 03/05/2023 calci um, serum or plasm a calcium, serum or plasma 8.9 text: 8.7-10 .4 Not Available Not Available 11/04/2024 14:06:23 03/05/19 24 03/05/2023 iron, serum iron, serum 53 text: 50.0-1 70.0 Not Available Not Available 11/04/2024 14:06:23 03/05/19 24 03/05/2023 potas sium, serum or plasm a potassium, serum or plasma 4.9 text: 3.5-5. 5 Not Available Not Available 11/04/2024 14:06:23 03/05/19 24 03/05/2023 sodiu m, serum or plasm a sodium, serum or plasma 140 text: 132.0- 146.0 Not Available Not Available 11/04/2024 14:06:23 03/05/19 24 03/05/2023 urea nitro gen, QN, 24h post dialy sis, perit calderón fluid urea nitrogen, qn, 24H post dialysis, peritoneal fluid 38 Not Available Not Available 10/24 14:06:23 03/05/19 24 03/05/2023 PTH (para thyro id hormo ne), intac t, serum or plasm a PTH (parathyroid hormone), intact, serum or plasma 370 text: 18.0-8 0.0 high Not Available Not Available 11/04/2024 14:06:24 03/05/19 24 03/05/2023 cortez tin, serum or plasm a ferritin, serum or plasma 615 text: 10.0-2 91.0 high Not Available Not Available 11/04/2024 14:06:24 03/05/19 24 03/05/2023 bun (bloo d urea nitro gen), serum or plasm a BUN (blood urea nitrogen), serum or plasma 52 text: 9.0-23 .0 high Not Available Not Available 11/04/2024 14:06:25 03/05/19 24 03/05/2023 gluco se, QN [mass /volu me], serum or plasm a glucose, qn [mass/volume ], serum or plasma 82 text: 70.0-9 9.0 Not Available Not Available 11/04/2024 14:06:25 03/05/19 24 03/05/2023 alkal ine phosp hatas e, serum or plasm a alkaline phosphatase, serum or plasma 158 text: 46.0-1 16.0 high Not Available Not Available 11/04/2024 14:06:25 03/05/19 24 03/05/2023 prote in, total , serum protein, total, serum 6.2 text: 5.7-8. 2 Not Available Not Available 11/04/2024 14:06:24 03/05/19 24 03/05/2023 HDL tanya stero l, serum HDL cholesterol, serum 59 text: 40.0-6 0.0 Not Available Not Available 11/04/2024 14:06:24 03/05/19 24 03/05/2023 album in, QN, BCG dye, serum or plasm a albumin, qn, bcg dye, serum or plasma 3.3 text: 3.4-4. 8 low Not Available Not Available 11/04/2024 14:06:24 03/05/19 24 03/05/2023 bicar bonat e, quant , serum bicarbonate, quant, serum 29 text: 20.0-3 1.0 Not Available Not Available 11/04/2024 14:06:03/05/19 24 03/05/2023 phosp horus , serum or plasm a phosphorus, serum or plasma 6.4 text: 2.4-5. 1 high Not Available Not Available 11/04/2024 14:06:03/05/19 24 03/05/2023 Lacta te dehyd rogen ase [Enzy matic activ ity/v olume ] in Serum or Plasm a lactate dehydrogenas e [enzymatic activity/vol ume] in serum or plasma 237 text: 120.0- 246.0 Not Available Not Available 11/04/2024 14:06:03/05/19 24 03/05/2023 magne sium, serum or plasm a magnesium, serum or plasma 2.1 text: 1.3-2. 7 Not Available Not Available 11/04/2024 14:06:03/05/19 24 03/05/2023 ALT (rolanda ine amino trans feras e), serum or plasm a ALT (alanine aminotransfe rase), serum or plasma 23 text: 10.0-4 9.0 Not Available Not Available 11/04/2024 14:06:24 03/05/19 24 03/05/2023 creat inine , serum or plasm a creatinine, serum or plasma 10.63 text: 0.5-1. 1 high Not Available Not Available 11/04/2024 14:06:24 03/05/19 24 03/05/2023 AST/S GOT (aspa rtate amino trans feras e), serum or plasm a AST/SGOT (aspartate aminotransfe rase), serum or plasma 21 text: 0.0-33 .0 Not Available Not Available 11/04/2024 14:06:24 03/05/19 24 03/05/2023 tanya stero l, total , serum cholesterol, total, serum 145 text: 0.0-19 9.0 Not Available Not Available 11/04/2024 14:06:24 03/05/19 24 03/05/2023 prote in, total , serum protein, total, serum 63 text: 0.0-14 9.0 Not Available Not Available 11/04/2024 14:06:24 03/12/19 24 2023 LIPID PANEL cholesterol, total 171 mg/dL 100-19 9 Not Available [facility] [address] [place], [address], 2023 23:07:48 03/12/19 24 2023 LIPID PANEL triglyceride s 78 mg/dL 0-149 Not Available [facility] Department [address] [place], [address], 2023 23:07:48 03/12/19 24 2023 LIPID PANEL HDL cholesterol 70 mg/dL 40-999 Not Available [facility] Department [address] [place], [address], 2023 23:07:48 03/12/19 24 2023 LIPID PANEL VLDL cholesterol bertrand 16 mg/dL 5-40 Not Available [facility] [address] [place], [address], 2023 23:07:48 03/12/19 24 2023 LIPID PANEL LDL chol calc ([facility]) 96 mg/dL 0-99 Not Available [facility] Department [address] [place] [address], [id number], 2023 23:07:48 03/12/19 24 2023 COMP. METAB OLIC PANEL (14) glucose 101 mg/dL 70-99 above high normal Not Available [facility] Department [address] [place] [address], [id number], 2023 23:07:49 03/12/19 24 2023 COMP. METAB OLIC PANEL (14) BUN 46 mg/dL 6-24 above high normal Not Available [facility] [address] [place] [address], [id number], 2023 23:07:49 03/12/19 24 2023 COMP. METAB OLIC PANEL (14) creatinine 12.18 mg/dL 0.76-1 .27 panic high RESUL TS VERIF IED AND SAUCEDA D TO DR MAYRA TALLEY ON BY Jesse bazzi, CPT AT 2108 ON 03/12. Not Available [facility] [address] [place] [address], [id number], 2023 23:07:49 03/12/19 24 2023 COMP. METAB [...] tao that value . Not Available [facility] [address] [place] [address], [id number], 2023 23:07:49 03/12/19 24 2023 COMP. METAB OLIC PANEL (14) BUN/creatini ne ratio 4 9-23 below low normal Not Available [facility] [address] [place] [address], [id number], 2023 23:07:49 03/12/19 24 2023 COMP. METAB OLIC PANEL (14) sodium 142 mmol/ L 134-14 4 Not Available [facility] [address] [place] [address], [id number], 2023 23:07:49 03/12/19 24 2023 COMP. METAB OLIC PANEL (14) potassium 4.6 mmol/ L 3.5-5. 2 Not Available [facility] [address] [place] [address], [id number], 2023 23:07:49 03/12/19 24 2023 COMP. METAB OLIC PANEL (14) chloride 102 mmol/ L 96-106 Not Available [facility] [address] [place] [address], [id number], 2023 23:07:49 03/12/19 24 2023 COMP. METAB OLIC PANEL (14) carbon dioxide, total 26 mmol/ L 20-29 Not Available [facility] [address] [place] [address], [id number], 2023 23:07:49 03/12/19 24 2023 COMP. METAB OLIC PANEL (14) calcium 9.6 mg/dL 8.7-10 .2 Not Available [facility] [address] [place] [address], [id number], 2023 23:07:49 03/12/19 24 2023 COMP. METAB OLIC PANEL (14) protein, total 7.0 g/dL 6.0-8. 5 Not Available [facility] [address] [place] [address], [id number], 2023 23:07:49 03/12/19 24 2023 COMP. METAB OLIC PANEL (14) albumin 3.7 g/dL 3.9-4. 9 below low normal Not Available [facility] [address] [place] [address], [id number], 2023 23:07:49 03/12/19 24 2023 COMP. METAB OLIC PANEL (14) globulin, total 3.3 g/dL 1.5-4. 5 Not Available [facility] [address] [place] [address], [id number], 2023 23:07:49 03/12/19 24 2023 COMP. METAB OLIC PANEL (14) A/G ratio 1.0 1.2-2. 2 below low normal Not Available [facility] [address] [place] [address], [id number], 2023 23:07:49 03/12/19 24 2023 COMP. METAB OLIC PANEL (14) bilirubin, total 0.2 mg/dL 0.0-1. 2 Not Available [facility] [address] [place] [address], [id number], 2023 23:07:49 03/12/19 24 2023 COMP. METAB OLIC PANEL (14) alkaline phosphatase 161 IU/L 44-121 above high normal Not Available [facility] [address] [place] [address], [id number], 2023 23:07:49 03/12/19 24 2023 COMP. METAB OLIC PANEL (14) AST (SGOT) 17 IU/L 0-40 Not Available [facility] [address] [place] [address], [id number], 2023 23:07:49 03/12/19 24 2023 COMP. METAB OLIC PANEL (14) ALT (SGPT) 15 IU/L 0-32 Not Available [facility] [address] [place] [address], [id number], 2023 23:07:49 03/12/19 24 2023 CBC, NO DIFFE RENTI AL/PL ATELE T WBC 9.4 x10e3 /uL 3.4-10 .8 Not Available [facility] [address] [place], [address], 2023 23:07:50 03/12/19 24 2023 CBC, NO DIFFE RENTI AL/PL ATELE T RBC 4.11 x10e6 /uL 3.77-5 .28 Not Available [facility] [address] [place], [address], 2023 23:07:50 03/12/19 24 2023 CBC, NO DIFFE RENTI AL/PL ATELE T hemoglobin 10.9 g/dL 11.1-1 5.9 below low normal Not Available [facility] [address] [place], [address], 2023 23:07:50 03/12/19 24 2023 CBC, NO DIFFE RENTI AL/PL ATELE T hematocrit 36.5 % 34.0-4 6.6 Not Available [facility] [address] [place], [address], 2023 23:07:50 03/12/19 24 2023 CBC, NO DIFFE RENTI AL/PL ATELE T MCV 89 fL 79-97 Not Available [facility] [address] [place], [address], 2023 23:07:50 03/12/19 24 2023 CBC, NO DIFFE RENTI AL/PL ATELE T MCH 26.5 pg 26.6-3 3.0 below low normal Not Available [facility] [address] [place], [address], 2023 23:07:50 03/12/19 24 2023 CBC, NO DIFFE RENTI AL/PL ATELE T MCHC 29.9 g/dL 31.5-3 5.7 below low normal Not Available [facility] [address] [place], [address], 2023 23:07:50 03/12/19 24 2023 CBC, NO DIFFE RENTI AL/PL ATELE T RDW 13.8 % 11.5-1 4.5 Not Available [facility] [address] [place], [address], 2023 23:07:50 03/12/19 24 2023 CBC, NO DIFFE RENTI AL/PL ATELE T NRBC 0 % 0-0 Not Available [facility] [address] [place], [address], 2023 23:07:50 03/12/19 24 03/13/2023 ALBUM IN/CR EATIN INE RATIO ,URIN E creatinine, urine 104.7 mg/dL notest ab. Not Available [facility] ([facility]) [address] [facility], [place], [address], 03/13/2023 10:15:47 03/12/19 24 03/13/2023 ALBUM IN/CR EATIN INE RATIO ,URIN E albumin, urine 511.4 ug/mL notest ab. Resul ts confi rmed on dilut ion. Not Available [facility] ([facility]) [address] [facility], [place], [address], 03/13/2023 10:15:47 03/12/19 24 03/13/2023 ALBUM IN/CR EATIN INE RATIO ,URIN E alb/creat ratio 488 mg/g_ creat 0-29 above high normal Kimberly l: 0 - 29 Moder ately incre ased: 30 - 300 Sever naima incre ased: >300 Not Available [facility] ([facility]) [address] [facility], [place], [address], 03/13/2023 10:15:47 03/12/19 24 03/13/2023 TSH RFX ON ABNOR MAL TO FREE T4 TSH 2.130 uIU/m L 0.450- 4.500 Not Available [facility] ([facility]) [address] [facility], [place], [address], 03/13/2023 10:15:48 03/12/19 24 03/13/2023 VITAM IN [...] 1. IOM (Inst itute of Medic ine). 2009. Dieta ry refer ence intak es for calci um and D. Leobardo karimi [place]: The [facility] . 2. Jarrett boswell MF, Hailee burgess [place], Alma Delia off-F errar i BAUMANN, et al. Evalu ation , treat ment, and preve ntion of vitam in D defic iency : an Endoc rine Socie ty clini bertrand pract ice guide line. JCEM. 2010; 96(7) :1911 -30. Not Available [facility] ([facility]) [address] [facility], [place], [address], 03/13/2023 10:15:49 03/12/19 24 2023 HbA1c (hemo globi n A1c), blood HbA1c 6.4 Not Available In-Office Order Internal Use Only DO Not Attach Compendium DO Not Attach Compendium, Do Not Delete/merge, [id number] 2023 11:51:02 03/12/19 24 2023 gluco se, finge rstic k, blood Blood Glucose: mg/dl 178 Not Available In-Off ice Order Internal Use Only DO Not Attach Compendium DO Not Attach Compendium, Do Not Delete/merge, [id number] 2023 11:51:04 04/01/19 24 04/01/2023 iron- monty ng capac ity, unsat urate d, serum iron-binding capacity, unsaturated, serum 144 text: 80.0-3 75.0 Not Available Not Available 11/04/2024 14:06:21 04/01/1904/01/2023 calci um, serum or plasm a calcium, serum or plasma 8.6 text: 8.7-10 .4 low Not Available Not Available 11/04/2024 14:06:21 04/01/19 24 04/01/2023 iron, serum iron, serum 49 text: 50.0-1 70.0 low Not Available Not Available 11/04/2024 14:06:21 04/01/19 24 04/01/2023 potas sium, serum or plasm a potassium, serum or plasma 4.7 text: 3.5-5. 5 Not Available Not Available 11/04/2024 14:06:21 04/01/19 24 04/01/2023 sodiu m, serum or plasm a sodium, serum or plasma 137 text: 132.0- 146.0 Not Available Not Available 11/04/2024 14:06:20 04/01/19 24 04/01/2023 bun (bloo d urea nitro gen), serum or plasm a BUN (blood urea nitrogen), serum or plasma 48 text: 9.0-23 .0 high Not Available Not Available 11/04/2024 14:06:22 04/01/19 24 04/01/2023 gluco se, QN [mass /volu me], serum or plasm a glucose, qn [mass/volume ], serum or plasma 125 text: 70.0-9 9.0 high Not Available Not Available 11/04/2024 14:06:22 04/01/19 24 04/01/2023 prote in, total , serum protein, total, serum 6 text: 5.7-8. 2 Not Available Not Available 11/04/2024 14:06:21 04/01/19 24 04/01/2023 alkal ine phosp hatas e, serum or plasm a alkaline phosphatase, serum or plasma 106 text: 46.0-1 16.0 Not Available Not Available 11/04/2024 14:06:21 04/01/19 24 04/01/2023 album in, QN, BCG dye, serum or plasm a albumin, qn, bcg dye, serum or plasma 3.3 text: 3.4-4. 8 low Not Available Not Available 11/04/2024 14:06:21 04/01/19 24 04/01/2023 bicar bonat e, quant , serum bicarbonate, quant, serum 27 text: 20.0-3 1.0 Not Available Not Available 11/04/2024 14:06:21 04/01/19 24 04/01/2023 phosp horus , serum or plasm a phosphorus, serum or plasma 6.7 text: 2.4-5. 1 high Not Available Not Available 11/04/2024 14:06:21 04/01/19 24 04/01/2023 Lacta te dehyd rogen ase [Enzy matic activ ity/v olume ] in Serum or Plasm a lactate dehydrogenas e [enzymatic activity/vol ume] in serum or plasma 186 text: 120.0- 246.0 Not Available Not Available 11/04/2024 14:06:21 04/01/19 24 04/01/2023 ALT (rolanda ine amino trans feras e), serum or plasm a ALT (alanine aminotransfe rase), serum or plasma 14 text: 10.0-4 9.0 Not Available Not Available 11/04/2024 14:06:21 04/01/19 24 04/01/2023 magne sium, serum or plasm a magnesium, serum or plasma 2 text: 1.3-2. 7 Not Available Not Available 11/04/2024 14:06:21 04/01/19 24 04/01/2023 creat inine , serum or plasm a creatinine, serum or plasma 11.37 text: 0.5-1. 1 high Not Available Not Available 11/04/2024 14:06:21 04/01/19 24 04/01/2023 AST/S GOT (aspa rtate amino trans feras e), serum or plasm a AST/SGOT (aspartate aminotransfe rase), serum or plasma 18 text: 0.0-33 .0 Not Available Not Available 11/04/2024 14:06:21 04/01/19 24 04/01/2023 mcv, blood MCV, blood 87.2 text: 80.0-1 00.0 Not Available Not Available 11/04/2024 14:06:22 04/01/19 24 04/01/2023 wbc, auto, blood WBC, auto, blood 7.8 text: 4.0-11 .0 Not Available Not Available 11/04/2024 14:06:22 04/01/19 24 04/01/2023 hemat ocrit , autom ated count , blood hematocrit, automated count, blood 35.3 text: 37.0-4 7.0 low Not Available Not Available 11/04/2024 14:06:22 04/01/19 24 04/01/2023 RBC count , blood RBC count, blood 4.05 text: 3.85-5 .2 Not Available Not Available 11/04/2024 14:06:22 04/01/19 24 04/01/2023 hemog lobin (Hb), blood hemoglobin (Hb), blood 11.1 text: 12.0-1 6.0 low Not Available Not Available 11/04/2024 14:06:22 04/01/19 24 04/01/2023 retic ulocy te count , auto, blood reticulocyte count, auto, blood 1.38 text: 0.7-2. 5 Not Available Not Available 11/04/2024 14:06:22 04/01/19 24 04/01/2023 eosin ophil s, auto, blood , absol algaaciq eosinophils, auto, blood, absolute 545 text: 0.0-70 0.0 Not Available Not Available 11/04/2024 14:06:22 04/01/19 24 04/01/2023 plate lets, auto, blood platelets, auto, blood 317 text: 140.0- 450.0 Not Available Not Available 11/04/2024 14:06:22 04/02/19 24 04/02/2023 PTH (para thyro id hormo ne), intac t, serum or plasm a PTH (parathyroid hormone), intact, serum or plasma 240 text: 18.0-8 0.0 high Not Available Not Available 11/04/2024 14:06:20 04/02/19 24 04/02/2023 cortez tin, serum or plasm a ferritin, serum or plasma 605 text: 10.0-2 91.0 high Not Available Not Available 11/04/2024 14:06:20 07/29/19 24 07/29/2023 mcv, blood MCV, blood 92.4 text: 80.0-1 00.0 Not Available Not Available 11/04/2024 14:06:07/29/19 24 07/29/2023 hemat ocrit , autom ated count , blood hematocrit, automated count, blood 37 text: 37.0-4 7.0 Not Available Not Available 11/04/2024 14:06:07/29/1907/29/2023 RBC count , blood RBC count, blood 4 text: 3.85-5 .2 Not Available Not Available 11/04/2024 14:06:07/29/19 24 07/29/2023 wbc, auto, blood WBC, auto, blood 8.6 text: 4.0-11 .0 Not Available Not Available 11/04/2024 14:06:19 07/29/19 24 07/29/2023 plate lets, auto, blood platelets, auto, blood 311 text: 140.0- 450.0 Not Available Not Available 11/04/2024 14:06:07/29/1907/29/2023 hemog lobin (Hb), blood hemoglobin (Hb), blood 11 text: 12.0-1 6.0 low Not Available Not Available 11/04/2024 14:06:07/29/1907/29/2023 eosin ophil s, auto, blood , absol algaaciq eosinophils, auto, blood, absolute 411 text: 0.0-70 0.0 Not Available Not Available 11/04/2024 14:06:19 07/29/19 24 07/29/2023 bun (bloo d urea nitro gen), serum or plasm a BUN (blood urea nitrogen), serum or plasma 57 text: 9.0-23 .0 high Not Available Not Available 11/04/2024 14:06:20 07/29/19 24 07/29/2023 gluco se, QN [mass /volu me], serum or plasm a glucose, qn [mass/volume ], serum or plasma 181 text: 70.0-9 9.0 high Not Available Not Available 11/04/2024 14:06:20 07/29/19 24 07/29/2023 prote in, total , serum protein, total, serum 6.3 text: 5.7-8. 2 Not Available Not Available 11/04/2024 14:06:20 07/29/19 24 07/29/2023 alkal ine phosp hatas e, serum or plasm a alkaline phosphatase, serum or plasma 180 text: 46.0-1 16.0 high Not Available Not Available 11/04/2024 14:06:20 07/29/19 24 07/29/2023 album in, QN, BCG dye, serum or plasm a albumin, qn, bcg dye, serum or plasma 3.5 text: 3.4-4. 8 Not Available Not Available 11/04/2024 14:06:20 07/29/19 24 07/29/2023 bicar bonat e, quant , serum bicarbonate, quant, serum 27 text: 20.0-3 1.0 Not Available Not Available 11/04/2024 14:06:20 07/29/19 24 07/29/2023 phosp horus , serum or plasm a phosphorus, serum or plasma 7.6 text: 2.4-5. 1 high Not Available Not Available 11/04/2024 14:06:19 07/29/19 24 07/29/2023 Lacta te dehyd rogen ase [Enzy matic activ ity/v olume ] in Serum or Plasm a lactate dehydrogenas e [enzymatic activity/vol ume] in serum or plasma 206 text: 120.0- 246.0 Not Available Not Available 11/04/2024 14:06:19 07/29/19 24 07/29/2023 ALT (rolanda ine amino trans feras e), serum or plasm a ALT (alanine aminotransfe rase), serum or plasma 17 text: 10.0-4 9.0 Not Available Not Available 11/04/2024 14:06:19 07/29/19 24 07/29/2023 magne sium, serum or plasm a magnesium, serum or plasma 2.2 text: 1.3-2. 7 Not Available Not Available 11/04/2024 14:06:19 07/29/19 24 07/29/2023 creat inine , serum or plasm a creatinine, serum or plasma 12.86 text: 0.5-1. 1 high Not Available Not Available 11/04/2024 14:06:19 07/29/19 24 07/29/2023 AST/S GOT (aspa rtate amino trans feras e), serum or plasm a AST/SGOT (aspartate aminotransfe rase), serum or plasma 22 text: 0.0-33 .0 Not Available Not Available 11/04/2024 14:06:19 07/30/19 24 07/30/2023 potas sium, serum or plasm a potassium, serum or plasma 4.1 text: 3.5-5. 5 Not Available Not Available 11/04/2024 14:06:18 07/30/19 24 07/30/2023 iron- monty ng capac ity, unsat urate d, serum iron-binding capacity, unsaturated, serum 132 text: 80.0-3 75.0 Not Available Not Available 11/04/2024 14:06:18 07/30/19 24 07/30/2023 calci um, serum or plasm a calcium, serum or plasma 9.1 text: 8.7-10 .4 Not Available Not Available 11/04/2024 14:06:18 07/30/19 24 07/30/2023 iron, serum iron, serum 83 text: 50.0-1 70.0 Not Available Not Available 11/04/2024 14:06:18 07/30/19 24 07/30/2023 sodiu m, serum or plasm a sodium, serum or plasma 139 text: 132.0- 146.0 Not Available Not Available 11/04/2024 14:06:18 07/30/19 24 07/30/2023 PTH (para thyro id hormo ne), intac t, serum or plasm a PTH (parathyroid hormone), intact, serum or plasma 350 text: 18.0-8 0.0 high Not Available Not Available 11/04/2024 14:06:19 07/30/19 24 07/30/2023 cortez tin, serum or plasm a ferritin, serum or plasma 776 text: 10.0-2 91.0 high Not Available Not Available 11/04/2024 14:06:18 08/25/19 24 08/25/2023 PTH (para thyro id hormo ne), intac t, serum or plasm a PTH (parathyroid hormone), intact, serum or plasma 338 text: 18.0-8 0.0 high Not Available Not Available 11/04/2024 14:06:18 08/25/1908/25/2023 cortez tin, serum or plasm a ferritin, serum or plasma 770 text: 10.0-2 91.0 high Not Available Not Available 11/04/2024 14:06:18 08/26/1908/26/2023 urea nitro gen, QN, 24h post dialy sis, perit calderón fluid urea nitrogen, qn, 24H post dialysis, peritoneal fluid 46 Not Available Not Available 10/24 14:06:16 08/26/1908/26/2023 vitam in D, 25-hy droxy , total , serum vitamin D, 25-hydroxy, total, serum 5.9 low Not Available Not Available 11/04/2024 14:06:16 08/26/1908/26/2023 iron- motny ng capac ity, unsat urate d, serum iron-binding capacity, unsaturated, serum 142 text: 80.0-3 75.0 Not Available Not Available 11/04/2024 14:06:16 08/26/1908/26/2023 calci um, serum or plasm a calcium, serum or plasma 9.3 text: 8.7-10 .4 Not Available Not Available 11/04/2024 14:06:16 08/26/1908/26/2023 iron, serum iron, serum 76 text: 50.0-1 70.0 Not Available Not Available 11/04/2024 14:06:16 08/26/19 24 08/26/2023 potas sium, serum or plasm a potassium, serum or plasma 4.3 text: 3.5-5. 5 Not Available Not Available 11/04/2024 14:06:16 08/26/19 24 08/26/2023 sodiu m, serum or plasm a sodium, serum or plasma 138 text: 132.0- 146.0 Not Available Not Available 11/04/2024 14:06:16 08/26/19 24 08/26/2023 mcv, blood MCV, blood 89.7 text: 80.0-1 00.0 Not Available Not Available 11/04/2024 14:06:17 08/26/19 24 08/26/2023 wbc, auto, blood WBC, auto, blood 8.6 text: 4.0-11 .0 Not Available Not Available 11/04/2024 14:06:17 08/26/1908/26/2023 hemat ocrit , autom ated count , blood hematocrit, automated count, blood 35.7 text: 37.0-4 7.0 low Not Available Not Available 11/04/2024 14:06:17 08/26/19 24 08/26/2023 RBC count , blood RBC count, blood 3.98 text: 3.85-5 .2 Not Available Not Available 11/04/2024 14:06:16 08/26/19 24 08/26/2023 plate lets, auto, blood platelets, auto, blood 318 text: 140.0- 450.0 Not Available Not Available 11/04/2024 14:06:16 08/26/19 24 08/26/2023 hemog lobin (Hb), blood hemoglobin (Hb), blood 10.7 text: 12.0-1 6.0 low Not Available Not Available 11/04/2024 14:06:16 08/26/19 24 08/26/2023 retic ulocy te count , auto, blood reticulocyte count, auto, blood 1.77 text: 0.7-2. 5 Not Available Not Available 11/04/2024 14:06:16 08/26/19 24 08/26/2023 eosin ophil s, auto, blood , absol algaaciq eosinophils, auto, blood, absolute 446 text: 0.0-70 0.0 Not Available Not Available 11/04/2024 14:06:16 08/26/19 24 08/26/2023 urea nitro gen, urine urea nitrogen, urine 230 Not Available Not Available 10/24 14:06:17 08/26/19 24 08/26/2023 creat inine , urine creatinine, urine 68.79 Not Available Not Available 10/24 14:06:17 08/26/19 24 08/26/2023 bun (bloo d urea nitro gen), serum or plasm a BUN (blood urea nitrogen), serum or plasma 59 text: 9.0-23 .0 high Not Available Not Available 11/04/2024 14:06:18 08/26/19 24 08/26/2023 gluco se, QN [mass /volu me], serum or plasm a glucose, qn [mass/volume ], serum or plasma 117 text: 70.0-9 9.0 high Not Available Not Available 11/04/2024 14:06:18 08/26/19 24 08/26/2023 prote in, total , serum protein, total, serum 6.5 text: 5.7-8. 2 Not Available Not Available 11/04/2024 14:06:18 08/26/19 24 08/26/2023 alkal ine phosp hatas e, serum or plasm a alkaline phosphatase, serum or plasma 175 text: 46.0-1 16.0 high Not Available Not Available 11/04/2024 14:06:18 08/26/19 24 08/26/2023 HDL tanya stero l, serum HDL cholesterol, serum 70 text: 40.0-6 0.0 high Not Available Not Available 11/04/2024 14:06:18 08/26/19 24 08/26/2023 album in, QN, BCG dye, serum or plasm a albumin, qn, bcg dye, serum or plasma 3.6 text: 3.4-4. 8 Not Available Not Available 11/04/2024 14:06:18 08/26/19 24 08/26/2023 phosp horus , serum or plasm a phosphorus, serum or plasma 6 text: 2.4-5. 1 high Not Available Not Available 11/04/2024 14:06:17 08/26/19 24 08/26/2023 bicar bonat e, quant , serum bicarbonate, quant, serum 26 text: 20.0-3 1.0 Not Available Not Available 11/04/2024 14:06:17 08/26/19 24 08/26/2023 Lacta te dehyd rogen ase [Enzy matic activ ity/v olume ] in Serum or Plasm a lactate dehydrogenas e [enzymatic activity/vol ume] in serum or plasma 266 text: 120.0- 246.0 high Not Available Not Available 11/04/2024 14:06:17 08/26/19 24 08/26/2023 ALT (rolanda ine amino trans feras e), serum or plasm a ALT (alanine aminotransfe rase), serum or plasma 35 text: 10.0-4 9.0 Not Available Not Available 11/04/2024 14:06:17 08/26/19 24 08/26/2023 magne sium, serum or plasm a magnesium, serum or plasma 2 text: 1.3-2. 7 Not Available Not Available 11/04/2024 14:06:17 08/26/19 24 08/26/2023 creat inine , serum or plasm a creatinine, serum or plasma 13.05 text: 0.5-1. 1 high Not Available Not Available 11/04/2024 14:06:17 08/26/19 24 08/26/2023 tanya stero l, total , serum cholesterol, total, serum 153 text: 0.0-19 9.0 Not Available Not Available 11/04/2024 14:06:08/26/19 24 08/26/2023 AST/S GOT (aspa rtate amino trans feras e), serum or plasm a AST/SGOT (aspartate aminotransfe rase), serum or plasma 29 text: 0.0-33 .0 Not Available Not Available 11/04/2024 14:06:17 08/26/19 24 08/26/2023 prote in, total , serum protein, total, serum 55 text: 0.0-14 9.0 Not Available Not Available 11/04/2024 14:06:17 11/28/19 24 11/28/2023 iron- monty ng capac ity, unsat urate d, serum iron-binding capacity, unsaturated, serum 134 text: 80.0-3 75.0 Not Available Not Available 11/04/2024 14:06:14 11/28/1911/28/2023 calci um, serum or plasm a calcium, serum or plasma 9.4 text: 8.7-10 .4 Not Available Not Available 11/04/2024 14:06:14 11/28/1911/28/2023 iron, serum iron, serum 65 text: 50.0-1 70.0 Not Available Not Available 11/04/2024 14:06:14 11/28/1911/28/2023 potas sium, serum or plasm a potassium, serum or plasma 3.4 text: 3.5-5. 5 low Not Available Not Available 11/04/2024 14:06:14 11/28/1911/28/2023 sodiu m, serum or plasm a sodium, serum or plasma 138 text: 132.0- 146.0 Not Available Not Available 11/04/2024 14:06:14 11/28/1911/28/2023 bun (bloo d urea nitro gen), serum or plasm a BUN (blood urea nitrogen), serum or plasma 49 text: 9.0-23 .0 high Not Available Not Available 11/04/2024 14:06:15 11/28/1911/28/2023 gluco se, QN [mass /volu me], serum or plasm a glucose, qn [mass/volume ], serum or plasma 182 text: 70.0-9 9.0 high Not Available Not Available 11/04/2024 14:06:15 11/28/1911/28/2023 prote in, total , serum protein, total, serum 6.8 text: 5.7-8. 2 Not Available Not Available 11/04/2024 14:06:15 11/28/1911/28/2023 alkal ine phosp hatas e, serum or plasm a alkaline phosphatase, serum or plasma 175 text: 46.0-1 16.0 high Not Available Not Available 11/04/2024 14:06:15 11/28/19 24 11/28/2023 album in, QN, BCG dye, serum or plasm a albumin, qn, bcg dye, serum or plasma 3.7 text: 3.4-4. 8 Not Available Not Available 11/04/2024 14:06:15 11/28/19 24 11/28/2023 bicar bonat e, quant , serum bicarbonate, quant, serum 25 text: 20.0-3 1.0 Not Available Not Available 11/04/2024 14:06:15 11/28/19 24 11/28/2023 phosp horus , serum or plasm a phosphorus, serum or plasma 6.9 text: 2.4-5. 1 high Not Available Not Available 11/04/2024 14:06:14 11/28/19 24 11/28/2023 Lacta te dehyd rogen ase [Enzy matic activ ity/v olume ] in Serum or Plasm a lactate dehydrogenas e [enzymatic activity/vol ume] in serum or plasma 325 text: 120.0- 246.0 high Not Available Not Available 11/04/2024 14:06:14 11/28/19 24 11/28/2023 ALT (rolanda ine amino trans feras e), serum or plasm a ALT (alanine aminotransfe rase), serum or plasma 41 text: 10.0-4 9.0 Not Available Not Available 11/04/2024 14:06:14 11/28/19 24 11/28/2023 creat inine , serum or plasm a creatinine, serum or plasma 14.42 text: 0.5-1. 1 high Not Available Not Available 11/04/2024 14:06:14 11/28/19 24 11/28/2023 magne sium, serum or plasm a magnesium, serum or plasma 2.1 text: 1.3-2. 7 Not Available Not Available 11/04/2024 14:06:14 11/28/19 24 11/28/2023 AST/S GOT (aspa rtate amino trans feras e), serum or plasm a AST/SGOT (aspartate aminotransfe rase), serum or plasma 45 text: 0.0-33 .0 high Not Available Not Available 11/04/2024 14:06:14 11/28/19 24 11/28/2023 PTH (para thyro id hormo ne), intac t, serum or plasm a PTH (parathyroid hormone), intact, serum or plasma 395 text: 18.0-8 0.0 high Not Available Not Available 11/04/2024 14:06:15 11/28/1911/28/2023 mcv, blood MCV, blood 87.7 text: 80.0-1 00.0 Not Available Not Available 11/04/2024 14:06:16 11/28/1911/28/2023 wbc, auto, blood WBC, auto, blood 10.6 text: 4.0-11 .0 Not Available Not Available 11/04/2024 14:06:16 11/28/1911/28/2023 RBC count , blood RBC count, blood 4.13 text: 3.85-5 .2 Not Available Not Available 11/04/2024 14:06:15 11/28/1911/28/2023 hemat ocrit , autom ated count , blood hematocrit, automated count, blood 36.3 text: 37.0-4 7.0 low Not Available Not Available 11/04/2024 14:06:15 11/28/1911/28/2023 plate lets, auto, blood platelets, auto, blood 309 text: 140.0- 450.0 Not Available Not Available 11/04/2024 14:06:15 11/28/1911/28/2023 hemog lobin (Hb), blood hemoglobin (Hb), blood 11.1 text: 12.0-1 6.0 low Not Available Not Available 11/04/2024 14:06:15 11/28/1911/28/2023 retic ulocy te count , auto, blood reticulocyte count, auto, blood 1.61 text: 0.7-2. 5 Not Available Not Available 11/04/2024 14:06:15 11/28/1911/28/2023 eosin ophil s, auto, blood , absol algaaciq eosinophils, auto, blood, absolute 614 text: 0.0-70 0.0 Not Available Not Available 11/04/2024 14:06:15 11/29/19 24 11/29/2023 cortez tin, serum or plasm a ferritin, serum or plasma 938 text: 10.0-2 91.0 high Not Available Not Available 11/04/2024 14:06:14 11/29/19 24 11/29/2023 vitam in D, 25-hy droxy , total , serum vitamin D, 25-hydroxy, total, serum 18.3 low Not Available Not Available 11/04/2024 14:06:14 02/26/19 25 02/27/2024 PTH (para thyro id hormo ne), intac t, serum or plasm a PTH (parathyroid hormone), intact, serum or plasma 406 text: 18.0-8 0.0 high Not Available Not Available 11/04/2024 14:06:12 02/26/1902/27/2024 iron- monty ng capac ity, unsat urate d, serum iron-binding capacity, unsaturated, serum 185 text: 80.0-3 75.0 Not Available Not Available 11/04/2024 14:06:12 02/26/1902/27/2024 iron, serum iron, serum 20 text: 50.0-1 70.0 low Not Available Not Available 11/04/2024 14:06:12 02/26/1902/27/2024 calci um, serum or plasm a calcium, serum or plasma 8.7 text: 8.7-10 .4 Not Available Not Available 11/04/2024 14:06:12 02/26/1902/27/2024 potas sium, serum or plasm a potassium, serum or plasma 4.5 text: 3.5-5. 5 Not Available Not Available 11/04/2024 14:06:12 02/26/1902/27/2024 phosp horus , serum or plasm a phosphorus, serum or plasma 5.8 text: 2.4-5. 1 high Not Available Not Available 11/04/2024 14:06:12 02/26/1902/27/2024 sodiu m, serum or plasm a sodium, serum or plasma 139 text: 132.0- 146.0 Not Available Not Available 11/04/2024 14:06:12 02/26/1902/27/2024 mcv, blood MCV, blood 86.4 text: 80.0-1 00.0 Not Available Not Available 11/04/2024 14:06:13 0102/27/2024 wbc, auto, blood WBC, auto, blood 8.3 text: 4.0-11 .0 Not Available Not Available 11/04/2024 14:06:12 02/26/1902/27/2024 hemat ocrit , autom ated count , blood hematocrit, automated count, blood 33.8 text: 37.0-4 7.0 low Not Available Not Available 11/04/2024 14:06:12 02/26/1902/27/2024 RBC count , blood RBC count, blood 3.91 text: 3.85-5 .2 Not Available Not Available 11/04/2024 14:06:12 02/26/1902/27/2024 hemog lobin (Hb), blood hemoglobin (Hb), blood 10.2 text: 12.0-1 6.0 low Not Available Not Available 11/04/2024 14:06:12 02/26/1902/27/2024 plate lets, auto, blood platelets, auto, blood 351 text: 140.0- 450.0 Not Available Not Available 11/04/2024 14:06:12 02/26/1902/27/2024 retic ulocy te count , auto, blood reticulocyte count, auto, blood 1.63 text: 0.7-2. 5 Not Available Not Available 11/04/2024 14:06:12 02/26/1902/27/2024 eosin ophil s, auto, blood , absol algaaciq eosinophils, auto, blood, absolute 414 text: 0.0-70 0.0 Not Available Not Available 11/04/2024 14:06:12 02/26/1902/27/2024 bun (bloo d urea nitro gen), serum or plasm a BUN (blood urea nitrogen), serum or plasma 46 text: 9.0-23 .0 high Not Available Not Available 11/04/2024 14:06:14 02/26/1902/27/2024 gluco se, QN [mass /volu me], serum or plasm a glucose, qn [mass/volume ], serum or plasma 180 text: 70.0-9 9.0 high Not Available Not Available 11/04/2024 14:06:02/26/1902/27/2024 prote in, total , serum protein, total, serum 6.4 text: 5.7-8. 2 Not Available Not Available 11/04/2024 14:06:13 02/26/1902/27/2024 alkal ine phosp hatas e, serum or plasm a alkaline phosphatase, serum or plasma 212 text: 46.0-1 16.0 high Not Available Not Available 11/04/2024 14:06:02/26/1902/27/2024 HDL tanya stero l, serum HDL cholesterol, serum 58 text: 40.0-6 0.0 Not Available Not Available 11/04/2024 14:06:13 02/26/1902/27/2024 album in, QN, BCG dye, serum or plasm a albumin, qn, bcg dye, serum or plasma 3.3 text: 3.4-4. 8 low Not Available Not Available 11/04/2024 14:06:13 02/26/1902/27/2024 bicar bonat e, quant , serum bicarbonate, quant, serum 28 text: 20.0-3 1.0 Not Available Not Available 11/04/2024 14:06:13 02/26/1902/27/2024 Lacta te dehyd rogen ase [Enzy matic activ ity/v olume ] in Serum or Plasm a lactate dehydrogenas e [enzymatic activity/vol ume] in serum or plasma 324 text: 120.0- 246.0 high Not Available Not Available 11/04/2024 14:06:13 02/26/1902/27/2024 ALT (rolanda ine amino trans feras e), serum or plasm a ALT (alanine aminotransfe rase), serum or plasma 36 text: 10.0-4 9.0 Not Available Not Available 11/04/2024 14:06:13 02/26/1902/27/2024 magne sium, serum or plasm a magnesium, serum or plasma 1.8 text: 1.3-2. 7 Not Available Not Available 11/04/2024 14:06:13 02/26/19 25 02/27/2024 creat inine , serum or plasm a creatinine, serum or plasma 11.15 text: 0.5-1. 1 high Not Available Not Available 11/04/2024 14:06:13 02/26/19 25 02/27/2024 AST/S GOT (aspa rtate amino trans feras e), serum or plasm a AST/SGOT (aspartate aminotransfe rase), serum or plasma 32 text: 0.0-33 .0 Not Available Not Available 11/04/2024 14:06:13 02/26/19 25 02/27/2024 prote in, total , serum protein, total, serum 99 text: 0.0-14 9.0 Not Available Not Available 11/04/2024 14:06:13 02/26/19 25 02/27/2024 tanya stero l, total , serum cholesterol, total, serum 134 text: 0.0-19 9.0 Not Available Not Available 11/04/2024 14:06:13 02/27/19 25 02/28/2024 cortez tin, serum or plasm a ferritin, serum or plasma 880 text: 10.0-2 91.0 high Not Available Not Available 11/04/2024 14:06:11 02/27/19 25 02/28/2024 vitam in D, 25-hy droxy , total , serum vitamin D, 25-hydroxy, total, serum 14.5 low Not Available Not Available 11/04/2024 14:06:11 03/01/19 25 03/01/2024 alumi num, serum aluminum, serum 10 text: 0.0-9. 0 Not Available Not Available 11/04/2024 14:06:11 04/30/19 25 04/29/2024 urea nitro gen, urine urea nitrogen, urine 218 Not Available Not Available 10/24 14:06:09 04/30/19 25 04/29/2024 creat inine , urine creatinine, urine 65.19 Not Available Not Available 10/24 14:06:04/30/19 25 04/29/2024 urea nitro gen, QN, 24h post dialy sis, perit [place]der[place] fluid urea nitrogen, qn, 24H post dialysis, peritoneal fluid 40 Not Available Not Available 10/24 14:06:04/30/19 25 04/29/2024 iron- monty ng capac ity, unsat urate d, serum iron-binding capacity, unsaturated, serum 145 text: 80.0-3 75.0 Not Available Not Available 11/04/2024 14:06:10 04/30/1904/29/2024 calci um, serum or plasm a calcium, serum or plasma 8.7 text: 8.7-10 .4 Not Available Not Available 11/04/2024 14:06:04/30/1904/29/2024 iron, serum iron, serum 62 text: 50.0-1 70.0 Not Available Not Available 11/04/2024 14:06:04/30/1904/29/2024 potas sium, serum or plasm a potassium, serum or plasma 4.3 text: 3.5-5. 5 Not Available Not Available 11/04/2024 14:06:09 04/30/1904/29/2024 phosp horus , serum or plasm a phosphorus, serum or plasma 7.5 text: 2.4-5. 1 high Not Available Not Available 11/04/2024 14:06:09 04/30/1904/29/2024 sodiu m, serum or plasm a sodium, serum or plasma 139 text: 132.0- 146.0 Not Available Not Available 11/04/2024 14:06:09 04/30/1904/29/2024 cortez tin, serum or plasm a ferritin, serum or plasma 723 text: 10.0-2 91.0 high Not Available Not Available 11/04/2024 14:06:10 04/30/1904/29/2024 PTH (para thyro id hormo ne), intac t, serum or plasm a PTH (parathyroid hormone), intact, serum or plasma 437 text: 18.0-8 0.0 high Not Available Not Available 11/04/2024 14:06:10 04/30/1904/29/2024 bun (bloo d urea nitro gen), serum or plasm a BUN (blood urea nitrogen), serum or plasma 54 text: 9.0-23 .0 high Not Available Not Available 11/04/2024 14:06:11 04/30/1904/29/2024 gluco se, QN [mass /volu me], serum or plasm a glucose, qn [mass/volume ], serum or plasma 141 text: 70.0-9 9.0 high Not Available Not Available 11/04/2024 14:06:11 04/30/19 25 04/29/2024 prote in, total , serum protein, total, serum 6.5 text: 5.7-8. 2 Not Available Not Available 11/04/2024 14:06:10 04/30/1904/29/2024 alkal ine phosp hatas e, serum or plasm a alkaline phosphatase, serum or plasma 336 text: 46.0-1 16.0 high Not Available Not Available 11/04/2024 14:06:10 04/30/1904/29/2024 album in, QN, BCG dye, serum or plasm a albumin, qn, bcg dye, serum or plasma 3.4 text: 3.4-4. 8 Not Available Not Available 11/04/2024 14:06:10 04/30/19 25 04/29/2024 bicar bonat e, quant , serum bicarbonate, quant, serum 26 text: 20.0-3 1.0 Not Available Not Available 11/04/2024 14:06:10 04/30/19 25 04/29/2024 Lacta te dehyd rogen ase [Enzy matic activ ity/v olume ] in Serum or Plasm a lactate dehydrogenas e [enzymatic activity/vol ume] in serum or plasma 360 text: 120.0- 246.0 high Not Available Not Available 11/04/2024 14:06:10 04/30/19 25 04/29/2024 ALT (rolanda ine amino trans feras e), serum or plasm a ALT (alanine aminotransfe rase), serum or plasma 63 text: 10.0-4 9.0 high Not Available Not Available 11/04/2024 14:06:10 04/30/19 25 04/29/2024 magne sium, serum or plasm a magnesium, serum or plasma 2 text: 1.3-2. 7 Not Available Not Available 11/04/2024 14:06:10 04/30/19 25 04/29/2024 creat inine , serum or plasm a creatinine, serum or plasma 11.81 text: 0.5-1. 1 high Not Available Not Available 11/04/2024 14:06:10 04/30/1904/29/2024 AST/S GOT (aspa rtate amino trans feras e), serum or plasm a AST/SGOT (aspartate aminotransfe rase), serum or plasma 63 text: 0.0-33 .0 high Not Available Not Available 11/04/2024 14:06:10 04/30/19 25 04/29/2024 hemat ocrit , autom ated count , blood hematocrit, automated count, blood 38.9 text: 37.0-4 7.0 Not Available Not Available 11/04/2024 14:06:04/30/1904/29/2024 plate lets, auto, blood platelets, auto, blood 328 text: 140.0- 450.0 Not Available Not Available 11/04/2024 14:06:11 04/30/1904/29/2024 hemog lobin (Hb), blood hemoglobin (Hb), blood 11.7 text: 12.0-1 6.0 low Not Available Not Available 11/04/2024 14:06:11 04/30/19 25 04/29/2024 retic ulocy te count , auto, blood reticulocyte count, auto, blood 1.13 text: 0.7-2. 5 Not Available Not Available 11/04/2024 14:06:11 04/30/1904/29/2024 mcv, blood MCV, blood 86.1 text: 80.0-1 00.0 Not Available Not Available 11/04/2024 14:06:04/30/19 25 04/29/2024 wbc, auto, blood WBC, auto, blood 8.6 text: 4.0-11 .0 Not Available Not Available 11/04/2024 14:06:04/30/1904/29/2024 RBC count , blood RBC count, blood 4.52 text: 3.85-5 .2 Not Available Not Available 11/04/2024 14:06:11 04/30/19 25 04/29/2024 eosin ophil s, auto, blood , absol algaaciq eosinophils, auto, blood, absolute 415 text: 0.0-70 0.0 Not Available Not Available 11/04/2024 14:06:11 05/29/1905/28/2024 cortez tin, serum or plasm a ferritin, serum or plasma 568 text: 10.0-2 91.0 high Not Available Not Available 11/04/2024 14:06:07 05/29/1905/28/2024 vitam in D, 25-hy droxy , total , serum vitamin D, 25-hydroxy, total, serum 9.2 low Not Available Not Available 11/04/2024 14:06:07 05/29/1905/28/2024 PTH (para thyro id hormo ne), intac t, serum or plasm a PTH (parathyroid hormone), intact, serum or plasma 471 text: 18.0-8 0.0 high Not Available Not Available 11/04/2024 14:06:07 05/29/1905/28/2024 mcv, blood MCV, blood 84.8 text: 80.0-1 00.0 Not Available Not Available 11/04/2024 14:06:08 05/29/1905/28/2024 wbc, auto, blood WBC, auto, blood 7.5 text: 4.0-11 .0 Not Available Not Available 11/04/2024 14:06:08 05/29/1905/28/2024 RBC count , blood RBC count, blood 3.92 text: 3.85-5 .2 Not Available Not Available 11/04/2024 14:06:08 05/29/1905/28/2024 hemat ocrit , autom ated count , blood hematocrit, automated count, blood 33.2 text: 37.0-4 7.0 low Not Available Not Available 11/04/2024 14:06:08 05/29/1905/28/2024 plate lets, auto, blood platelets, auto, blood 238 text: 140.0- 450.0 Not Available Not Available 11/04/2024 14:06:08 05/29/1905/28/2024 hemog lobin (Hb), blood hemoglobin (Hb), blood 10.2 text: 12.0-1 6.0 low Not Available Not Available 11/04/2024 14:06:08 05/29/1905/28/2024 eosin ophil s, auto, blood , absol algaaciq eosinophils, auto, blood, absolute 753 text: 0.0-70 0.0 high Not Available Not Available 11/04/2024 14:06:08 05/29/1905/28/2024 retic ulocy te count , auto, blood reticulocyte count, auto, blood 1.65 text: 0.7-2. 5 Not Available Not Available 11/04/2024 14:06:08 05/29/1905/28/2024 bun (bloo d urea nitro gen), serum or plasm a BUN (blood urea nitrogen), serum or plasma 55 text: 9.0-23 .0 high Not Available Not Available 11/04/2024 14:06:09 05/29/1905/28/2024 gluco se, QN [mass /volu me], serum or plasm a glucose, qn [mass/volume ], serum or plasma 152 text: 70.0-9 9.0 high Not Available Not Available 11/04/2024 14:06:09 05/29/1905/28/2024 alkal ine phosp hatas e, serum or plasm a alkaline phosphatase, serum or plasma 206 text: 46.0-1 16.0 high Not Available Not Available 11/04/2024 14:06:09 05/29/1905/28/2024 prote in, total , serum protein, total, serum 5.8 text: 5.7-8. 2 Not Available Not Available 11/04/2024 14:06:05/29/1905/28/2024 album in, QN, BCG dye, serum or plasm a albumin, qn, bcg dye, serum or plasma 3 text: 3.4-4. 8 low Not Available Not Available 11/04/2024 14:06:09 05/29/19 25 05/28/2024 bicar bonat e, quant , serum bicarbonate, quant, serum 27 text: 20.0-3 1.0 Not Available Not Available 11/04/2024 14:06:08 05/29/19 25 05/28/2024 Lacta te dehyd rogen ase [Enzy matic activ ity/v olume ] in Serum or Plasm a lactate dehydrogenas e [enzymatic activity/vol ume] in serum or plasma 375 text: 120.0- 246.0 high Not Available Not Available 11/04/2024 14:06:08 05/29/1905/28/2024 ALT (rolanda ine amino trans feras e), serum or plasm a ALT (alanine aminotransfe rase), serum or plasma 32 text: 10.0-4 9.0 Not Available Not Available 11/04/2024 14:06:08 05/29/1905/28/2024 magne sium, serum or plasm a magnesium, serum or plasma 1.9 text: 1.3-2. 7 Not Available Not Available 11/04/2024 14:06:08 05/29/1905/28/2024 creat inine , serum or plasm a creatinine, serum or plasma 11.59 text: 0.5-1. 1 high Not Available Not Available 11/04/2024 14:06:08 05/29/1905/28/2024 AST/S GOT (aspa rtate amino trans feras e), serum or plasm a AST/SGOT (aspartate aminotransfe rase), serum or plasma 35 text: 0.0-33 .0 high Not Available Not Available 11/04/2024 14:06:08 05/30/1905/29/2024 iron- monty ng capac ity, unsat urate d, serum iron-binding capacity, unsaturated, serum 157 text: 80.0-3 75.0 Not Available Not Available 11/04/2024 14:06:07 05/30/1905/29/2024 calci um, serum or plasm a calcium, serum or plasma 8.5 text: 8.7-10 .4 low Not Available Not Available 11/04/2024 14:06:07 05/30/19 25 05/29/2024 iron, serum iron, serum 39 text: 50.0-1 70.0 low Not Available Not Available 11/04/2024 14:06:07 05/30/19 25 05/29/2024 potas sium, serum or plasm a potassium, serum or plasma 4.2 text: 3.5-5. 5 Not Available Not Available 11/04/2024 14:06:07 05/30/19 25 05/29/2024 phosp horus , serum or plasm a phosphorus, serum or plasma 5.5 text: 2.4-5. 1 high Not Available Not Available 11/04/2024 14:06:07 05/30/19 25 05/29/2024 sodiu m, serum or plasm a sodium, serum or plasma 140 text: 132.0- 146.0 Not Available Not Available 11/04/2024 14:06:07 06/20/19 25 06/19/2024 potas sium, serum or plasm a potassium, serum or plasma 4.1 Not Available Not Available 10/24 14:06:07 06/20/19 25 06/19/2024 album in, QN, BCG dye, serum or plasm a albumin, qn, bcg dye, serum or plasma 2.7 Not Available Not Available 10/24 14:06:07 06/26/19 25 06/25/2024 magne sium, serum or plasm a magnesium, serum or plasma 1.7 text: 1.3-2. 7 Not Available Not Available 11/04/2024 14:06:06 06/26/19 25 06/25/2024 creat inine , serum or plasm a creatinine, serum or plasma 10.29 text: 0.5-1. 1 high Not Available Not Available 11/04/2024 14:06:06 06/26/19 25 06/25/2024 album in, QN, BCG dye, serum or plasm a albumin, qn, bcg dye, serum or plasma 2.6 text: 3.4-4. 8 low Not Available Not Available 11/04/2024 14:06:06 06/26/19 25 06/25/2024 prote in, total , serum protein, total, serum 5.6 text: 5.7-8. 2 low Not Available Not Available 11/04/2024 14:06:06 06/26/19 25 06/25/2024 AST/S GOT (aspa rtate amino trans feras e), serum or plasm a AST/SGOT (aspartate aminotransfe rase), serum or plasma 25 text: 0.0-33 .0 Not Available Not Available 11/04/2024 14:06:06 06/26/19 25 06/25/2024 bun (bloo d urea nitro gen), serum or plasm a BUN (blood urea nitrogen), serum or plasma 31 text: 9.0-23 .0 high Not Available Not Available 11/04/2024 14:06:06 06/26/19 25 06/25/2024 ALT (rolanda ine amino trans feras e), serum or plasm a ALT (alanine aminotransfe rase), serum or plasma 20 text: 10.0-4 9.0 Not Available Not Available 11/04/2024 14:06:06 06/26/19 25 06/25/2024 gluco se, QN [mass /volu me], serum or plasm a glucose, qn [mass/volume ], serum or plasma 186 text: 70.0-9 9.0 high Not Available Not Available 11/04/2024 14:06:05 06/26/19 25 06/25/2024 bicar bonat e, quant , serum bicarbonate, quant, serum 29 text: 20.0-3 1.0 Not Available Not Available 11/04/2024 14:06:05 06/26/19 25 06/25/2024 alkal ine phosp hatas e, serum or plasm a alkaline phosphatase, serum or plasma 172 text: 46.0-1 16.0 high Not Available Not Available 11/04/2024 14:06:05 06/26/19 25 06/25/2024 Lacta te dehyd rogen ase [Enzy matic activ ity/v olume ] in Serum or Plasm a lactate dehydrogenas e [enzymatic activity/vol ume] in serum or plasma 293 text: 120.0- 246.0 high Not Available Not Available 11/04/2024 14:06:05 06/26/19 25 06/25/2024 wbc, auto, blood WBC, auto, blood 7.5 text: 4.0-11 .0 Not Available Not Available 11/04/2024 14:06:07 06/26/19 25 06/25/2024 hemog lobin (Hb), blood hemoglobin (Hb), blood 9.8 text: 12.0-1 6.0 low Not Available Not Available 11/04/2024 14:06:06 06/26/1906/25/2024 plate lets, auto, blood platelets, auto, blood 386 text: 140.0- 450.0 Not Available Not Available 11/04/2024 14:06:06 06/26/1906/25/2024 eosin ophil s, auto, blood , absol algaaciq eosinophils, auto, blood, absolute 382 text: 0.0-70 0.0 Not Available Not Available 11/04/2024 14:06:06 06/26/1906/25/2024 RBC count , blood RBC count, blood 3.87 text: 3.85-5 .2 Not Available Not Available 11/04/2024 14:06:06/26/1906/25/2024 retic ulocy te count , auto, blood reticulocyte count, auto, blood 1.9 text: 0.7-2. 5 Not Available Not Available 11/04/2024 14:06:06 06/26/1906/25/2024 mcv, blood MCV, blood 84.7 text: 80.0-1 00.0 Not Available Not Available 11/04/2024 14:06:06 06/26/1906/25/2024 hemat ocrit , autom ated count , blood hematocrit, automated count, blood 32.8 text: 37.0-4 7.0 low Not Available Not Available 11/04/2024 14:06:06 06/27/1906/26/2024 sodiu m, serum or plasm a sodium, serum or plasma 138 text: 132.0- 146.0 Not Available Not Available 11/04/2024 14:06:05 06/27/1906/26/2024 iron- monty ng capac ity, unsat urate d, serum iron-binding capacity, unsaturated, serum 120 text: 80.0-3 75.0 Not Available Not Available 11/04/2024 14:06:05 06/27/1906/26/2024 phosp horus , serum or plasm a phosphorus, serum or plasma 5.1 text: 2.4-5. 1 Not Available Not Available 11/04/2024 14:06:05 06/27/19 25 06/26/2024 calci um, serum or plasm a calcium, serum or plasma 8.2 text: 8.7-10 .4 low Not Available Not Available 11/04/2024 14:06:05 06/27/19 25 06/26/2024 iron, serum iron, serum 35 text: 50.0-1 70.0 low Not Available Not Available 11/04/2024 14:06:05 06/27/19 25 06/26/2024 potas sium, serum or plasm a potassium, serum or plasma 3.8 text: 3.5-5. 5 Not Available Not Available 11/04/2024 14:06:05 07/30/19 25 07/29/2024 urea nitro gen, urine urea nitrogen, urine 197 Not Available Not Available 10/24 14:06:01 07/30/19 25 07/29/2024 creat inine , urine creatinine, urine 46.29 Not Available Not Available 10/24 14:06:01 07/30/19 25 07/29/2024 urea nitro gen, urine urea nitrogen, urine 197 Not Available Not Available 10/24 14:06:01 07/30/19 25 07/29/2024 creat inine , urine creatinine, urine 46.29 Not Available Not Available 10/24 14:06:01 07/30/19 25 07/29/2024 bun (bloo d urea nitro gen), serum or plasm a BUN (blood urea nitrogen), serum or plasma 63 text: 9.0-23 .0 high Not Available Not Available 11/04/2024 14:06:03 07/30/1907/29/2024 gluco se, QN [mass /volu me], serum or plasm a glucose, qn [mass/volume ], serum or plasma 163 text: 74.0-1 06.0 high Not Available Not Available 11/04/2024 14:06:03 07/30/19 25 07/29/2024 alkal ine phosp hatas e, serum or plasm a alkaline phosphatase, serum or plasma 244 text: 46.0-1 16.0 high Not Available Not Available 11/04/2024 14:06:03 07/30/19 25 07/29/2024 prote in, total , serum protein, total, serum 5.6 text: 5.7-8. 2 low Not Available Not Available 11/04/2024 14:06:03 07/30/19 25 07/29/2024 album in, QN, BCG dye, serum or plasm a albumin, qn, bcg dye, serum or plasma 2.8 text: 3.2-4. 8 low Not Available Not Available 11/04/2024 14:06:03 07/30/19 25 07/29/2024 bicar bonat e, quant , serum bicarbonate, quant, serum 23 text: 20.0-3 1.0 Not Available Not Available 11/04/2024 14:06:03 07/30/19 25 07/29/2024 phosp horus , serum or plasm a phosphorus, serum or plasma 6.1 text: 2.4-5. 1 high Not Available Not Available 11/04/2024 14:06:03 07/30/19 25 07/29/2024 Lacta te dehyd rogen ase [Enzy matic activ ity/v olume ] in Serum or Plasm a lactate dehydrogenas e [enzymatic activity/vol ume] in serum or plasma 336 text: 120.0- 246.0 high Not Available Not Available 11/04/2024 14:06:03 07/30/19 25 07/29/2024 magne sium, serum or plasm a magnesium, serum or plasma 1.8 text: 1.6-2. 6 Not Available Not Available 11/04/2024 14:06:02 07/30/19 25 07/29/2024 ALT (rolanda ine amino trans feras e), serum or plasm a ALT (alanine aminotransfe rase), serum or plasma 48 text: 10.0-4 9.0 Not Available Not Available 11/04/2024 14:06:02 07/30/19 25 07/29/2024 creat inine , serum or plasm a creatinine, serum or plasma 11.13 text: 0.55-1 .02 high Not Available Not Available 11/04/2024 14:06:02 07/30/19 25 07/29/2024 AST/S GOT (aspa rtate amino trans feras e), serum or plasm a AST/SGOT (aspartate aminotransfe rase), serum or plasma 51 text: 0.0-33 .0 high Not Available Not Available 11/04/2024 14:06:02 07/30/19 25 07/29/2024 magne sium, serum or plasm a magnesium, serum or plasma 1.8 text: 1.6-2. 6 Not Available Not Available 11/04/2024 14:06:02 07/30/19 25 07/29/2024 prote in, total , serum protein, total, serum 5.6 text: 5.7-8. 2 low Not Available Not Available 11/04/2024 14:06:02 07/30/19 25 07/29/2024 AST/S GOT (aspa rtate amino trans feras e), serum or plasm a AST/SGOT (aspartate aminotransfe rase), serum or plasma 51 text: 0.0-33 .0 high Not Available Not Available 11/04/2024 14:06:02 07/30/19 25 07/29/2024 phosp horus , serum or plasm a phosphorus, serum or plasma 6.1 text: 2.4-5. 1 high Not Available Not Available 11/04/2024 14:06:02 07/30/19 25 07/29/2024 Lacta te dehyd rogen ase [Enzy matic activ ity/v olume ] in Serum or Plasm a lactate dehydrogenas e [enzymatic activity/vol ume] in serum or plasma 336 text: 120.0- 246.0 high Not Available Not Available 11/04/2024 14:06:02 07/30/19 25 07/29/2024 ALT (rolanda ine amino trans feras e), serum or plasm a ALT (alanine aminotransfe rase), serum or plasma 48 text: 10.0-4 9.0 Not Available Not Available 11/04/2024 14:06:02 07/30/19 25 07/29/2024 bicar bonat e, quant , serum bicarbonate, quant, serum 23 text: 20.0-3 1.0 Not Available Not Available 11/04/2024 14:06:02 07/30/19 25 07/29/2024 gluco se, QN [mass /volu me], serum or plasm a glucose, qn [mass/volume ], serum or plasma 163 text: 74.0-1 06.0 high Not Available Not Available 11/04/2024 14:06:02 07/30/19 25 07/29/2024 creat inine , serum or plasm a creatinine, serum or plasma 11.13 text: 0.55-1 .02 high Not Available Not Available 11/04/2024 14:06:02 07/30/19 25 07/29/2024 bun (bloo d urea nitro gen), serum or plasm a BUN (blood urea nitrogen), serum or plasma 63 text: 9.0-23 .0 high Not Available Not Available 11/04/2024 14:06:01 07/30/19 25 07/29/2024 album in, QN, BCG dye, serum or plasm a albumin, qn, bcg dye, serum or plasma 2.8 text: 3.2-4. 8 low Not Available Not Available 11/04/2024 14:06:01 07/30/19 25 07/29/2024 alkal ine phosp hatas e, serum or plasm a alkaline phosphatase, serum or plasma 244 text: 46.0-1 16.0 high Not Available Not Available 11/04/2024 14:06:01 07/30/19 25 07/29/2024 mcv, blood MCV, blood 85.9 text: 80.0-1 00.0 Not Available Not Available 11/04/2024 14:06:04 07/30/19 25 07/29/2024 wbc, auto, blood WBC, auto, blood 9.8 text: 4.0-11 .0 Not Available Not Available 11/04/2024 14:06:04 07/30/19 25 07/29/2024 hemat ocrit , autom ated count , blood hematocrit, automated count, blood 28.5 text: 37.0-4 7.0 low Not Available Not Available 11/04/2024 14:06:04 07/30/19 25 07/29/2024 RBC count , blood RBC count, blood 3.32 text: 3.85-5 .2 low Not Available Not Available 11/04/2024 14:06:04 07/30/19 25 07/29/2024 plate lets, auto, blood platelets, auto, blood 232 text: 140.0- 450.0 Not Available Not Available 11/04/2024 14:06:04 07/30/19 25 07/29/2024 hemog lobin (Hb), blood hemoglobin (Hb), blood 8.6 text: 12.0-1 6.0 low Not Available Not Available 11/04/2024 14:06:04 07/30/19 25 07/29/2024 retic ulocy te count , auto, blood reticulocyte count, auto, blood 1.76 text: 0.7-2. 5 Not Available Not Available 11/04/2024 14:06:04 07/30/19 25 07/29/2024 eosin ophil s, auto, blood , absol algaaciq eosinophils, auto, blood, absolute 429 text: 0.0-70 0.0 Not Available Not Available 11/04/2024 14:06:04 07/30/19 25 07/29/2024 eosin ophil s, auto, blood , absol algaaciq eosinophils, auto, blood, absolute 429 text: 0.0-70 0.0 Not Available Not Available 11/04/2024 14:06:04 07/30/19 25 07/29/2024 retic ulocy te count , auto, blood reticulocyte count, auto, blood 1.76 text: 0.7-2. 5 Not Available Not Available 11/04/2024 14:06:04 07/30/19 25 07/29/2024 plate lets, auto, blood platelets, auto, blood 232 text: 140.0- 450.0 Not Available Not Available 11/04/2024 14:06:04 07/30/19 25 07/29/2024 mcv, blood MCV, blood 85.9 text: 80.0-1 00.0 Not Available Not Available 11/04/2024 14:06:04 07/30/19 25 07/29/2024 hemog lobin (Hb), blood hemoglobin (Hb), blood 8.6 text: 12.0-1 6.0 low Not Available Not Available 11/04/2024 14:06:03 07/30/19 25 07/29/2024 RBC count , blood RBC count, blood 3.32 text: 3.85-5 .2 low Not Available Not Available 11/04/2024 14:06:03 07/30/19 07/29/2024 hemat ocrit , autom ated count , blood hematocrit, automated count, blood 28.5 text: 37.0-4 7.0 low Not Available Not Available 11/04/2024 14:06:03 07/30/19 25 07/29/2024 wbc, auto, blood WBC, auto, blood 9.8 text: 4.0-11 .0 Not Available Not Available 11/04/2024 14:06:03 07/30/1907/29/2024 urea nitro gen, QN, 24h post dialy sis, perit [place] fluid urea nitrogen, qn, 24H post dialysis, peritoneal fluid 54 Not Available Not Available 10/24 14:06:05 07/30/1907/29/2024 urea nitro gen, QN, 24h post dialy sis, perit [place] fluid urea nitrogen, qn, 24H post dialysis, peritoneal fluid 54 Not Available Not Available 10/24 14:06:04 07/30/1907/29/2024 PTH (para thyro id hormo ne), intac t, serum or plasm a PTH (parathyroid hormone), intact, serum or plasma 547 text: 18.0-8 0.0 high Not Available Not Available 11/04/2024 14:06:05 07/30/19 25 07/29/2024 cortez tin, serum or plasm a ferritin, serum or plasma 765 text: 10.0-2 91.0 high Not Available Not Available 11/04/2024 14:06:05 07/30/19 25 07/29/2024 PTH (para thyro id hormo ne), intac t, serum or plasm a PTH (parathyroid hormone), intact, serum or plasma 547 text: 18.0-8 0.0 high Not Available Not Available 11/04/2024 14:06:05 07/30/19 25 07/29/2024 cortez tin, serum or plasm a ferritin, serum or plasma 765 text: 10.0-2 91.0 high Not Available Not Available 11/04/2024 14:06:05 07/31/19 25 07/30/2024 iron- monty ng capac ity, unsat urate d, serum iron-binding capacity, unsaturated, serum 174 text: 80.0-3 75.0 Not Available Not Available 11/04/2024 14:06:00 07/31/19 25 07/30/2024 iron- monty ng capac ity, unsat urate d, serum iron-binding capacity, unsaturated, serum 174 text: 80.0-3 75.0 Not Available Not Available 11/04/2024 14:06:00 07/31/19 25 07/30/2024 calci um, serum or plasm a calcium, serum or plasma 8.2 text: 8.7-10 .4 low Not Available Not Available 11/04/2024 14:06:01 07/31/19 25 07/30/2024 iron, serum iron, serum 21 text: 50.0-1 70.0 low Not Available Not Available 11/04/2024 14:06:01 07/31/19 25 07/30/2024 potas sium, serum or plasm a potassium, serum or plasma 4.3 text: 3.5-5. 1 Not Available Not Available 11/04/2024 14:06:01 07/31/19 25 07/30/2024 sodiu m, serum or plasm a sodium, serum or plasma 140 text: 136.0- 145.0 Not Available Not Available 11/04/2024 14:06:01 07/31/19 25 07/30/2024 sodiu m, serum or plasm a sodium, serum or plasma 140 text: 136.0- 145.0 Not Available Not Available 11/04/2024 14:06:01 07/31/19 25 07/30/2024 iron, serum iron, serum 21 text: 50.0-1 70.0 low Not Available Not Available 11/04/2024 14:06:01 07/31/19 25 07/30/2024 potas sium, serum or plasm a potassium, serum or plasma 4.3 text: 3.5-5. 1 Not Available Not Available 11/04/2024 14:06:01 07/31/19 25 07/30/2024 calci um, serum or plasm a calcium, serum or plasma 8.2 text: 8.7-10 .4 low Not Available Not Available 11/04/2024 14:06:00 08/25/19 25 08/24/2024 iron- monty ng capac ity, unsat urate d, serum iron-binding capacity, unsaturated, serum 157 text: 80.0-3 75.0 Not Available Not Available 11/04/2024 14:05:58 08/25/1908/24/2024 sodiu m, serum or plasm a sodium, serum or plasma 142 text: 136.0- 145.0 Not Available Not Available 11/04/2024 14:05:58 08/25/1908/24/2024 potas sium, serum or plasm a potassium, serum or plasma 4.6 text: 3.5-5. 1 Not Available Not Available 11/04/2024 14:05:58 08/25/1908/24/2024 iron, serum iron, serum 39 text: 50.0-1 70.0 low Not Available Not Available 11/04/2024 14:05:58 08/25/1908/24/2024 calci um, serum or plasm a calcium, serum or plasma 8.5 text: 8.7-10 .4 low Not Available Not Available 11/04/2024 14:05:58 08/25/1908/24/2024 eosin ophil s, auto, blood , absol algaaciq eosinophils, auto, blood, absolute 270 text: 0.0-70 0.0 Not Available Not Available 11/04/2024 14:05:59 08/25/1908/24/2024 retic ulocy te count , auto, blood reticulocyte count, auto, blood 1.83 text: 0.7-2. 5 Not Available Not Available 11/04/2024 14:05:58 08/25/1908/24/2024 plate lets, auto, blood platelets, auto, blood 241 text: 140.0- 450.0 Not Available Not Available 11/04/2024 14:05:58 08/25/1908/24/2024 mcv, blood MCV, blood 85.4 text: 80.0-1 00.0 Not Available Not Available 11/04/2024 14:05:58 08/25/19 25 08/24/2024 hemog lobin (Hb), blood hemoglobin (Hb), blood 8.7 text: 12.0-1 6.0 low Not Available Not Available 11/04/2024 14:05:58 08/25/19 25 08/24/2024 hemat ocrit , autom ated count , blood hematocrit, automated count, blood 28.2 text: 37.0-4 7.0 low Not Available Not Available 11/04/2024 14:05:58 08/25/19 25 08/24/2024 RBC count , blood RBC count, blood 3.3 text: 3.85-5 .2 low Not Available Not Available 11/04/2024 14:05:58 08/25/1908/24/2024 wbc, auto, blood WBC, auto, blood 7.3 text: 4.0-11 .0 Not Available Not Available 11/04/2024 14:05:58 08/25/1908/24/2024 PTH (para thyro id hormo ne), intac t, serum or plasm a PTH (parathyroid hormone), intact, serum or plasma 582 text: 18.0-8 0.0 high Not Available Not Available 11/04/2024 14:05:59 08/25/1908/24/2024 cortez tin, serum or plasm a ferritin, serum or plasma 565 text: 10.0-2 91.0 high Not Available Not Available 11/04/2024 14:05:59 08/25/1908/24/2024 magne sium, serum or plasm a magnesium, serum or plasma 1.7 text: 1.6-2. 6 Not Available Not Available 11/04/2024 14:06:00 08/25/1908/24/2024 HDL tanya stero l, serum HDL cholesterol, serum 55 text: 40.0-6 0.0 Not Available Not Available 11/04/2024 14:06:00 08/25/19 25 08/24/2024 prote in, total , serum protein, total, serum 5.6 text: 5.7-8. 2 low Not Available Not Available 11/04/2024 14:06:00 08/25/19 25 08/24/2024 prote in, total , serum protein, total, serum 101 text: 0.0-14 9.0 Not Available Not Available 11/04/2024 14:06:00 08/25/1908/24/2024 AST/S GOT (aspa rtate amino trans feras e), serum or plasm a AST/SGOT (aspartate aminotransfe rase), serum or plasma 38 text: 0.0-33 .0 high Not Available Not Available 11/04/2024 14:06:00 08/25/19 25 08/24/2024 phosp horus , serum or plasm a phosphorus, serum or plasma 6.8 text: 2.4-5. 1 high Not Available Not Available 11/04/2024 14:06:00 08/25/19 25 08/24/2024 Lacta te dehyd rogen ase [Enzy matic activ ity/v olume ] in Serum or Plasm a lactate dehydrogenas e [enzymatic activity/vol ume] in serum or plasma 385 text: 120.0- 246.0 high Not Available Not Available 11/04/2024 14:05:59 08/25/19 25 08/24/2024 ALT (rolanda ine amino trans feras e), serum or plasm a ALT (alanine aminotransfe rase), serum or plasma 37 text: 10.0-4 9.0 Not Available Not Available 11/04/2024 14:05:59 08/25/19 25 08/24/2024 gluco se, QN [mass /volu me], serum or plasm a glucose, qn [mass/volume ], serum or plasma 197 text: 74.0-1 06.0 high Not Available Not Available 11/04/2024 14:05:59 08/25/19 25 08/24/2024 creat inine , serum or plasm a creatinine, serum or plasma 13.3 text: 0.55-1 .02 high Not Available Not Available 11/04/2024 14:05:59 08/25/19 25 08/24/2024 bicar bonat e, quant , serum bicarbonate, quant, serum 26 text: 20.0-3 1.0 Not Available Not Available 11/04/2024 14:05:59 08/25/19 25 08/24/2024 album in, QN, BCG dye, serum or plasm a albumin, qn, bcg dye, serum or plasma 2.9 text: 3.2-4. 8 low Not Available Not Available 11/04/2024 14:05:59 08/25/19 25 08/24/2024 tanya stero l, total , serum cholesterol, total, serum 121 text: 0.0-19 9.0 Not Available Not Available 11/04/2024 14:05:59 08/25/19 25 08/24/2024 bun (bloo d urea nitro gen), serum or plasm a BUN (blood urea nitrogen), serum or plasma 57 text: 9.0-23 .0 high Not Available Not Available 11/04/2024 14:05:59 08/25/1908/24/2024 alkal ine phosp hatas e, serum or plasm a alkaline phosphatase, serum or plasma 211 text: 46.0-1 16.0 high Not Available Not Available 11/04/2024 14:05:59 08/26/1908/25/2024 vitam in D, 25-hy droxy , total , serum vitamin D, 25-hydroxy, total, serum 13.1 low Not Available Not Available 11/04/2024 14:05:58 09/28/1909/27/2024 PTH (para thyro id hormo ne), intac t, serum or plasm a PTH (parathyroid hormone), intact, serum or plasma 590 text: 18.0-8 0.0 high Not Available Not Available 11/04/2024 14:05:54 09/28/1909/27/2024 cortez tin, serum or plasm a ferritin, serum or plasma 553 text: 10.0-2 91.0 high Not Available Not Available 11/04/2024 14:05:54 09/28/1909/27/2024 cortez tin, serum or plasm a ferritin, serum or plasma 553 text: 10.0-2 91.0 high Not Available Not Available 11/04/2024 14:05:54 09/28/19 25 09/27/2024 PTH (para thyro id hormo ne), intac t, serum or plasm a PTH (parathyroid hormone), intact, serum or plasma 590 text: 18.0-8 0.0 high Not Available Not Available 11/04/2024 14:05:54 09/28/19 25 09/27/2024 eosin ophil s, auto, blood , absol algaaciq eosinophils, auto, blood, absolute 496 text: 0.0-70 0.0 Not Available Not Available 11/04/2024 14:05:56 09/28/19 25 09/27/2024 retic ulocy te count , auto, blood reticulocyte count, auto, blood 2.13 text: 0.7-2. 5 Not Available Not Available 11/04/2024 14:05:56 09/28/19 25 09/27/2024 plate lets, auto, blood platelets, auto, blood 241 text: 140.0- 450.0 Not Available Not Available 11/04/2024 14:05:55 09/28/19 25 09/27/2024 mcv, blood MCV, blood 85.3 text: 80.0-1 00.0 Not Available Not Available 11/04/2024 14:05:55 09/28/1909/27/2024 hemog lobin (Hb), blood hemoglobin (Hb), blood 8.3 text: 12.0-1 6.0 low Not Available Not Available 11/04/2024 14:05:55 09/28/19 25 09/27/2024 hemat ocrit , autom ated count , blood hematocrit, automated count, blood 27.8 text: 37.0-4 7.0 low Not Available Not Available 11/04/2024 14:05:55 09/28/1909/27/2024 RBC count , blood RBC count, blood 3.26 text: 3.85-5 .2 low Not Available Not Available 11/04/2024 14:05:55 09/28/19 25 09/27/2024 wbc, auto, blood WBC, auto, blood 8.4 text: 4.0-11 .0 Not Available Not Available 11/04/2024 14:05:55 09/28/19 25 09/27/2024 mcv, blood MCV, blood 85.3 text: 80.0-1 00.0 Not Available Not Available 11/04/2024 14:05:55 09/28/19 25 09/27/2024 retic ulocy te count , auto, blood reticulocyte count, auto, blood 2.13 text: 0.7-2. 5 Not Available Not Available 11/04/2024 14:05:55 0809/27/2024 hemat ocrit , autom ated count , blood hematocrit, automated count, blood 27.8 text: 37.0-4 7.0 low Not Available Not Available 11/04/2024 14:05:55 09/28/1909/27/2024 hemog lobin (Hb), blood hemoglobin (Hb), blood 8.3 text: 12.0-1 6.0 low Not Available Not Available 11/04/2024 14:05:55 09/28/1909/27/2024 wbc, auto, blood WBC, auto, blood 8.4 text: 4.0-11 .0 Not Available Not Available 11/04/2024 14:05:55 09/28/1909/27/2024 RBC count , blood RBC count, blood 3.26 text: 3.85-5 .2 low Not Available Not Available 11/04/2024 14:05:55 09/28/19 25 09/27/2024 eosin ophil s, auto, blood , absol algaaciq eosinophils, auto, blood, absolute 496 text: 0.0-70 0.0 Not Available Not Available 11/04/2024 14:05:55 09/28/1909/27/2024 plate lets, auto, blood platelets, auto, blood 241 text: 140.0- 450.0 Not Available Not Available 11/04/2024 14:05:55 09/28/1909/27/2024 magne sium, serum or plasm a magnesium, serum or plasma 1.8 text: 1.6-2. 6 Not Available Not Available 11/04/2024 14:05:57 09/28/1909/27/2024 prote in, total , serum protein, total, serum 5.9 text: 5.7-8. 2 Not Available Not Available 11/04/2024 14:05:57 09/28/1909/27/2024 AST/S GOT (aspa rtate amino trans feras e), serum or plasm a AST/SGOT (aspartate aminotransfe rase), serum or plasma 27 text: 0.0-33 .0 Not Available Not Available 11/04/2024 14:05:57 09/28/1909/27/2024 phosp horus , serum or plasm a phosphorus, serum or plasma 6 text: 2.4-5. 1 high Not Available Not Available 11/04/2024 14:05:57 09/28/1909/27/2024 Lacta te dehyd rogen ase [Enzy matic activ ity/v olume ] in Serum or Plasm a lactate dehydrogenas e [enzymatic activity/vol ume] in serum or plasma 331 text: 120.0- 246.0 high Not Available Not Available 11/04/2024 14:05:57 09/28/1909/27/2024 creat inine , serum or plasm a creatinine, serum or plasma 12.83 text: 0.55-1 .02 high Not Available Not Available 11/04/2024 14:05:57 09/28/19 25 09/27/2024 ALT (rolanda ine amino trans feras e), serum or plasm a ALT (alanine aminotransfe rase), serum or plasma 32 text: 10.0-4 9.0 Not Available Not Available 11/04/2024 14:05:57 09/28/1909/27/2024 gluco se, QN [mass /volu me], serum or plasm a glucose, qn [mass/volume ], serum or plasma 129 text: 74.0-1 06.0 high Not Available Not Available 11/04/2024 14:05:57 09/28/19 25 09/27/2024 bicar bonat e, quant , serum bicarbonate, quant, serum 24 text: 20.0-3 1.0 Not Available Not Available 11/04/2024 14:05:57 09/28/1909/27/2024 bun (bloo d urea nitro gen), serum or plasm a BUN (blood urea nitrogen), serum or plasma 54 text: 9.0-23 .0 high Not Available Not Available 11/04/2024 14:05:57 09/28/19 25 09/27/2024 album in, QN, BCG dye, serum or plasm a albumin, qn, bcg dye, serum or plasma 2.9 text: 3.2-4. 8 low Not Available Not Available 11/04/2024 14:05:57 09/28/19 25 09/27/2024 alkal ine phosp hatas e, serum or plasm a alkaline phosphatase, serum or plasma 243 text: 46.0-1 16.0 high Not Available Not Available 11/04/2024 14:05:57 09/28/1909/27/2024 AST/S GOT (aspa rtate amino trans feras e), serum or plasm a AST/SGOT (aspartate aminotransfe rase), serum or plasma 27 text: 0.0-33 .0 Not Available Not Available 11/04/2024 14:05:56 09/28/1909/27/2024 magne sium, serum or plasm a magnesium, serum or plasma 1.8 text: 1.6-2. 6 Not Available Not Available 11/04/2024 14:05:56 09/28/1909/27/2024 Lacta te dehyd rogen ase [Enzy matic activ ity/v olume ] in Serum or Plasm a lactate dehydrogenas e [enzymatic activity/vol ume] in serum or plasma 331 text: 120.0- 246.0 high Not Available Not Available 11/04/2024 14:05:56 09/28/1909/27/2024 prote in, total , serum protein, total, serum 5.9 text: 5.7-8. 2 Not Available Not Available 11/04/2024 14:05:56 09/28/1909/27/2024 album in, QN, BCG dye, serum or plasm a albumin, qn, bcg dye, serum or plasma 2.9 text: 3.2-4. 8 low Not Available Not Available 11/04/2024 14:05:56 09/28/1909/27/2024 creat inine , serum or plasm a creatinine, serum or plasma 12.83 text: 0.55-1 .02 high Not Available Not Available 11/04/2024 14:05:56 09/28/1909/27/2024 bicar bonat e, quant , serum bicarbonate, quant, serum 24 text: 20.0-3 1.0 Not Available Not Available 11/04/2024 14:05:56 09/28/19 25 09/27/2024 phosp horus , serum or plasm a phosphorus, serum or plasma 6 text: 2.4-5. 1 high Not Available Not Available 11/04/2024 14:05:56 09/28/19 25 09/27/2024 gluco se, QN [mass /volu me], serum or plasm a glucose, qn [mass/volume ], serum or plasma 129 text: 74.0-1 06.0 high Not Available Not Available 11/04/2024 14:05:56 09/28/1909/27/2024 bun (bloo d urea nitro gen), serum or plasm a BUN (blood urea nitrogen), serum or plasma 54 text: 9.0-23 .0 high Not Available Not Available 11/04/2024 14:05:56 09/28/1909/27/2024 alkal ine phosp hatas e, serum or plasm a alkaline phosphatase, serum or plasma 243 text: 46.0-1 16.0 high Not Available Not Available 11/04/2024 14:05:56 09/28/19 25 09/27/2024 ALT (rolanda ine amino trans feras e), serum or plasm a ALT (alanine aminotransfe rase), serum or plasma 32 text: 10.0-4 9.0 Not Available Not Available 11/04/2024 14:05:56 09/29/1909/28/2024 iron- monty ng capac ity, unsat urate d, serum iron-binding capacity, unsaturated, serum 162 text: 80.0-3 75.0 Not Available Not Available 11/04/2024 14:05:54 09/29/1909/28/2024 sodiu m, serum or plasm a sodium, serum or plasma 146 text: 136.0- 145.0 high Not Available Not Available 11/04/2024 14:05:54 09/29/19 25 09/28/2024 potas sium, serum or plasm a potassium, serum or plasma 4.4 text: 3.5-5. 1 Not Available Not Available 11/04/2024 14:05:54 09/29/19 25 09/28/2024 iron, serum iron, serum 38 text: 50.0-1 70.0 low Not Available Not Available 11/04/2024 14:05:54 08/06/09/28/2024 calci um, serum or plasm a calcium, serum or plasma 8.6 text: 8.7-10 .4 low Not Available Not Available 11/04/2024 14:05:54 09/29/1909/28/2024 sodiu m, serum or plasm a sodium, serum or plasma 146 text: 136.0- 145.0 high Not Available Not Available 11/04/2024 14:05:54 09/29/1909/28/2024 calci um, serum or plasm a calcium, serum or plasma 8.6 text: 8.7-10 .4 low Not Available Not Available 11/04/2024 14:05:54 09/29/1909/28/2024 potas sium, serum or plasm a potassium, serum or plasma 4.4 text: 3.5-5. 1 Not Available Not Available 11/04/2024 14:05:54 09/29/1909/28/2024 iron- monty ng capac ity, unsat urate d, serum iron-binding capacity, unsaturated, serum 162 text: 80.0-3 75.0 Not Available Not Available 11/04/2024 14:05:53 09/29/1909/28/2024 iron, serum iron, serum 38 text: 50.0-1 70.0 low Not Available Not Available 11/04/2024 14:05:53 10/11/1910/10/2024 BMP, serum or plasm a glucose, qn [mass/volume ], serum or plasma 56 text: 70 - 99 mg/dL low Not Available Not Available 11/04/2024 14:03:35 10/11/1910/10/2024 BMP, serum or plasm a BUN (blood urea nitrogen), serum or plasma 47 text: 7 - 18 mg/dL high Not Available Not Available 11/04/2024 14:03:35 10/11/1910/10/2024 BMP, serum or plasm a creatinine, serum or plasma 13.6 text: 0.55 - 1.02 mg/dL critical high Mack remy(s) Farrukh bell at: 19:28 :30 on 10/10 by: RHOAN DUMONT to and read back by:LUIS BAE SON Not Available Not Available 11/04/2024 14:03:35 10/11/19 25 10/10/2024 BMP, serum or plasm a sodium, serum or plasma 138 text: 136 - 145 mmol/L Not Available Not Available 11/04/2024 14:03:35 10/11/19 25 10/10/2024 BMP, serum or plasm a potassium, serum or plasma 3.7 text: 3.5 - 5.1 mmol/L Not Available Not Available 11/04/2024 14:03:35 10/11/19 25 10/10/2024 BMP, serum or plasm a chloride, serum or plasma 101 text: 97 - 115 mmol/L Not Available Not Available 11/04/2024 14:03:35 10/11/1910/10/2024 BMP, serum or plasm a CO2, (carbon dioxide), total, serum or plasma 27.7 text: 21 - 32 mmol/L Not Available Not Available 11/04/2024 14:03:35 10/11/19 25 10/10/2024 BMP, serum or plasm a calcium, serum or plasma 9.4 text: 8.5 - 10.1 mg/dL Not Available Not Available 11/04/2024 14:03:35 10/11/19 25 10/10/2024 BMP, serum or plasm a anion gap, serum or plasma 9.3 text: 2 - 10 mmol/L Not Available Not Available 11/04/2024 14:03:35 10/11/19 25 10/10/2024 BMP, serum or plasm a BUN/creatini ne, ratio, serum 3.5 low: 6high: 26 low Not Available Not Available 11/04/2024 14:03:35 10/11/19 25 10/10/2024 BMP, serum or plasm a glomerular filtration rate/1.73 sq M predicted, qn, creatinine based formula (CKD-epi 2020), serum or plasma or blood 3 text: >90 mL/min /1.73 M2 low NOTE: eGFR is not calcu lated for patie nts <18 years of age or gende r unkno wn. This is an estim ated GFR calcu latio n using the new CKD EPI creat inine equat ion witho ut race and so does not requi re a corre ction facto r for race. This estim ated GFR shoul d not be used for calcu latin g drug doses . Not Available Not Available 11/04/2024 14:03:35 10/11/19 25 10/10/2024 BMP, serum or plasm a lab interpretati on Abnorm al Not Available Not Available 14:03:35 10/11/19 25 10/10/2024 CBC w/ auto diff WBC, auto, blood 10.32 text: 4.5 - 11.0 x10'3/ uL Not Available Not Available 11/04/2024 14:03:35 10/11/19 25 10/10/2024 CBC w/ auto diff RBC count, blood 3.14 text: 4.20 - 5.40 x10'6/ uL low Not Available Not Available 11/04/2024 14:03:35 10/11/19 25 10/10/2024 CBC w/ auto diff hemoglobin (Hb), blood 7.8 text: 12.0 - 16.0 g/dL low Not Available Not Available 11/04/2024 14:03:35 10/11/19 25 10/10/2024 CBC w/ auto diff hematocrit, blood 25.4 % low: 38%hig h: 48% low Not Available Not Available 11/04/2024 14:03:35 10/11/19 25 10/10/2024 CBC w/ auto diff MCV, qn (obs) 80.9 text: 81.0 - 99.0 fL low Not Available Not Available 11/04/2024 14:03:35 10/11/19 25 10/10/2024 CBC w/ auto diff MCH, qn (obs) 24.8 pg low: 27pghi gh: 31pg low Not Available Not Available 11/04/2024 14:03:35 10/11/19 25 10/10/2024 CBC w/ auto diff mean corpuscular hemoglobin concentratio n, qn, RBC 30.7 text: 32.0 - 36.0 g/dL low Not Available Not Available 11/04/2024 14:03:35 10/11/19 25 10/10/2024 CBC w/ auto diff RDW 16.8 % low: 11.5%h igh: 14.5% high Not Available Not Available 11/04/2024 14:03:35 10/11/19 25 10/10/2024 CBC w/ auto diff platelet count, blood 318 text: 130 - 400 x10'3/ uL Not Available Not Available 11/04/2024 14:03:35 10/11/19 25 10/10/2024 CBC w/ auto diff platelet mean volume, qn, blood (obs) 10.1 text: 9.3 - 12.2 fL Not Available Not Available 11/04/2024 14:03:35 10/11/19 25 10/10/2024 CBC w/ auto diff differential cell count method, blood (obs) AUTOMA GRAEME DIFFER ENTIAL Not Available Not Available 14:03:35 10/11/19 25 10/10/2024 CBC w/ auto diff neutrophils/ 100 leukocytes, automated, blood (obs) 61.4 % Not Available Not Available 11/04/2024 14:03:35 10/11/19 25 10/10/2024 CBC w/ auto diff lymphocytes/ 100 leukocytes, automated, blood (obs) 23.7 % Not Available Not Available 11/04/2024 14:03:35 10/11/19 25 10/10/2024 CBC w/ auto diff monocytes/10 0 leukocytes, automated, blood (obs) 8.6 % Not Available Not Available 11/04/2024 14:03:35 10/11/19 25 10/10/2024 CBC w/ auto diff eosinophils/ 100 leukocytes, automated, blood (obs) 5 % Not Available Not Available 11/04/2024 14:03:35 10/11/19 25 10/10/2024 CBC w/ auto diff basophils/10 0 leukocytes, automated, blood (obs) 0.7 % Not Available Not Available 11/04/2024 14:03:35 10/11/19 25 10/10/2024 CBC w/ auto diff immature granulocytes /100 leukocytes, automated, blood (obs) 0.6 % Not Available Not Available 11/04/2024 14:03:35 10/11/19 25 10/10/2024 CBC w/ auto diff neutrophils, count, blood (obs) 6.33 text: 1.80 - 7.70 x10'3/ uL Not Available Not Available 11/04/2024 14:03:35 10/11/19 25 10/10/2024 CBC w/ auto diff lymphocytes, blood (obs) 2.45 text: 1.00 - 4.80 x10'3/ uL Not Available Not Available 11/04/2024 14:03:35 10/11/19 25 10/10/2024 CBC w/ auto diff monocytes, count, blood (obs) 0.89 text: 0.24 - 0.86 x10'3/ uL high Not Available Not Available 11/04/2024 14:03:35 10/11/19 25 10/10/2024 CBC w/ auto diff eosinophils, quant, blood 0.52 text: 0.04 - 0.36 x10'3/ uL high Not Available Not Available 11/04/2024 14:03:35 10/11/19 25 10/10/2024 CBC w/ auto diff basophils, count, blood (obs) 0.07 text: 0.01 - 0.08 x10'3/ uL Not Available Not Available 11/04/2024 14:03:35 10/11/19 25 10/10/2024 CBC w/ auto diff immature granulocytes count, blood 0.06 text: 0.00 - 0.49 x10'3/ uL Not Available Not Available 11/04/2024 14:03:35 10/11/19 25 10/10/2024 CBC w/ auto diff lab interpretati on Abnorm al Not Available Not Available 14:03:35 10/12/19 25 10/11/2024 gluco se, QN, test strip , auto, blood glucose, qn, test strip, auto, blood 63 mg/dL low: 70mg/d Lhigh: 99mg/d L low Not Available Not Available 11/04/2024 14:03:36 10/12/19 25 10/11/2024 gluco se, QN, test strip , auto, blood lab interpretati on Abnorm al Not Available Not Available 14:03:36 10/12/19 25 10/11/2024 hepar in, unfra ction ated, quant , plate let poor plasm a heparin, unfractionat ed, quant, platelet poor plasma 0.07 text: 0.30 - 0.70 IU/mL low UFH Thera peuti c Anti Xa Range s: Medic al Thera peuti c Range : 0.30 - 0.70 IU/mL Cardi ac Thera peuti c Range : 0.30 - 0.50 IU/mL Neuro Thera peuti c Range : 0.20 - 0.40 IU/mL Not Available Not Available 11/04/2024 14:03:36 10/12/19 25 10/11/2024 hepar in, unfra ction ated, quant , plate let poor plasm a lab interpretati on Abnorm al Not Available Not Available 14:03:36 10/12/19 25 10/11/2024 gluco se, QN, test strip , auto, blood glucose, qn, test strip, auto, blood 84 mg/dL low: 70mg/d Lhigh: 99mg/d L Not Available Not Available 11/04/2024 14:03:36 10/12/19 25 10/11/2024 gluco se, QN, test strip , auto, blood glucose, qn, test strip, auto, blood 154 mg/dL low: 70mg/d Lhigh: 99mg/d L high Not Available Not Available 11/04/2024 14:03:36 10/12/19 25 10/11/2024 gluco se, QN, test strip , auto, blood lab interpretati on Abnorm al Not Available Not Available 14:03:36 10/12/19 25 10/11/2024 gluco se, QN, test strip , auto, blood glucose, qn, test strip, auto, blood 46 mg/dL low: 70mg/d Lhigh: 99mg/d L low Not Available Not Available 11/04/2024 14:03:36 10/12/19 25 10/11/2024 gluco se, QN, test strip , auto, blood lab interpretati on Abnorm al Not Available Not Available 14:03:36 10/12/19 25 10/11/2024 gluco se, QN, test strip , auto, blood glucose, qn, test strip, auto, blood 52 mg/dL low: 70mg/d Lhigh: 99mg/d L low Not Available Not Available 11/04/2024 14:03:36 10/12/19 25 10/11/2024 gluco se, QN, test strip , auto, blood lab interpretati on Abnorm al Not Available Not Available 14:03:36 10/12/19 25 10/11/2024 proth rombi n time prothrombin time 12.5 text: 10.2 - 12.9 sec Not Available Not Available 11/04/2024 14:03:36 10/12/19 25 10/11/2024 proth rombi n time INR, plasma 1.1 Recom silvina d INR Thera peuti c Goals : 2.0-3 .0 Routi ne Thera py 2.5-3 .5 Mecha nical Prost hetic Valve s (High Risk) Not Available Not Available 11/04/2024 14:03:36 10/12/19 25 10/11/2024 hepar in, unfra ction ated, quant , plate let poor plasm a heparin, unfractionat ed, quant, platelet poor plasma 0.04 text: 0.30 - 0.70 IU/mL low UFH Thera peuti c Anti Xa Range s: Medic al Thera peuti c Range : 0.30 - 0.70 IU/mL Cardi ac Thera peuti c Range : 0.30 - 0.50 IU/mL Neuro Thera peuti c Range : 0.20 - 0.40 IU/mL Not Available Not Available 11/04/2024 14:03:36 10/12/19 25 10/11/2024 hepar in, unfra ction ated, quant , plate let poor plasm a lab interpretati on Abnorm al Not Available Not Available 14:03:36 10/12/19 25 10/11/2024 gluco se, QN, test strip , auto, blood glucose, qn, test strip, auto, blood 67 mg/dL low: 70mg/d Lhigh: 99mg/d L low Not Available Not Available 11/04/2024 14:03:36 10/12/19 25 10/11/2024 gluco se, QN, test strip , auto, blood lab interpretati on Abnorm al Not Available Not Available 14:03:36 10/12/1910/11/2024 gluco se, QN, test strip , auto, blood glucose, qn, test strip, auto, blood 62 mg/dL low: 70mg/d Lhigh: 99mg/d L low Not Available Not Available 11/04/2024 14:03:36 10/12/19 25 10/11/2024 gluco se, QN, test strip , auto, blood lab interpretati on Abnorm al Not Available Not Available 14:03:36 10/12/1910/11/2024 BMP, serum or plasm a glucose, qn [mass/volume ], serum or plasma 71 text: 70 - 99 mg/dL Not Available Not Available 11/04/2024 14:03:36 10/12/1910/11/2024 BMP, serum or plasm a BUN (blood urea nitrogen), serum or plasma 49 text: 7 - 18 mg/dL high Not Available Not Available 11/04/2024 14:03:36 10/12/1910/11/2024 BMP, serum or plasm a creatinine, serum or plasma 14.2 text: 0.55 - 1.02 mg/dL critical high NOT SAUCEDA D PER CRITI BERTRAND VALUE POLIC Y Not Available Not Available 11/04/2024 14:03:36 10/12/1910/11/2024 BMP, serum or plasm a sodium, serum or plasma 138 text: 136 - 145 mmol/L Not Available Not Available 11/04/2024 14:03:36 10/12/1910/11/2024 BMP, serum or plasm a potassium, serum or plasma 3.7 text: 3.5 - 5.1 mmol/L Not Available Not Available 11/04/2024 14:03:36 10/12/1910/11/2024 BMP, serum or plasm a chloride, serum or plasma 101 text: 97 - 115 mmol/L Not Available Not Available 11/04/2024 14:03:36 10/12/1910/11/2024 BMP, serum or plasm a CO2, (carbon dioxide), total, serum or plasma 26 text: 21 - 32 mmol/L Not Available Not Available 11/04/2024 14:03:36 10/12/192025 BMP, serum or plasm a calcium, serum or plasma 9.4 text: 8.5 - 10.1 mg/dL Not Available Not Available 11/04/2024 14:03:36 10/12/19 25 10/11/2024 BMP, serum or plasm a anion gap, serum or plasma 11 text: 2 - 10 mmol/L high Not Available Not Available 11/04/2024 14:03:36 10/12/19 25 10/11/2024 BMP, serum or plasm a BUN/creatini ne, ratio, serum 3.5 low: 6high: 26 low Not Available Not Available 11/04/2024 14:03:36 10/12/1910/11/2024 BMP, serum or plasm a glomerular filtration rate/1.73 sq M predicted, qn, creatinine based formula (CKD-epi 2020), serum or plasma or blood 3 text: >90 mL/min /1.73 M2 low NOTE: eGFR is not calcu lated for patie nts <18 years of age or gende r unkno wn. This is an estim ated GFR calcu latio n using the new CKD EPI creat inine equat ion witho ut race and so does not requi re a corre ction facto r for race. This estim ated GFR shoul d not be used for calcu latin g drug doses . Not Available Not Available 11/04/2024 14:03:36 10/12/19 25 10/11/2024 BMP, serum or plasm a lab interpretati on Abnorm al Not Available Not Available 14:03:36 10/12/19 25 10/11/2024 CBC w/ auto diff WBC, auto, blood 11.19 text: 4.5 - 11.0 x10'3/ uL high Not Available Not Available 11/04/2024 14:03:36 10/12/19 25 10/11/2024 CBC w/ auto diff RBC count, blood 3.15 text: 4.20 - 5.40 x10'6/ uL low Not Available Not Available 11/04/2024 14:03:36 10/12/19 25 10/11/2024 CBC w/ auto diff hemoglobin (Hb), blood 8.1 text: 12.0 - 16.0 g/dL low Not Available Not Available 11/04/2024 14:03:36 10/12/19 25 10/11/2024 CBC w/ auto diff hematocrit, blood 25.5 % low: 38%hig h: 48% low Not Available Not Available 11/04/2024 14:03:36 10/12/19 25 10/11/2024 CBC w/ auto diff MCV, qn (obs) 81 text: 81.0 - 99.0 fL Not Available Not Available 11/04/2024 14:03:36 10/12/19 25 10/11/2024 CBC w/ auto diff MCH, qn (obs) 25.7 pg low: 27pghi gh: 31pg low Not Available Not Available 11/04/2024 14:03:36 10/12/19 25 10/11/2024 CBC w/ auto diff mean corpuscular hemoglobin concentratio n, qn, RBC 31.8 text: 32.0 - 36.0 g/dL low Not Available Not Available 11/04/2024 14:03:36 10/12/19 25 10/11/2024 CBC w/ auto diff RDW 16.6 % low: 11.5%h igh: 14.5% high Not Available Not Available 11/04/2024 14:03:36 10/12/19 25 10/11/2024 CBC w/ auto diff platelet count, blood 274 text: 130 - 400 x10'3/ uL Not Available Not Available 11/04/2024 14:03:36 10/12/19 25 10/11/2024 CBC w/ auto diff platelet mean volume, qn, blood (obs) 9.2 text: 9.3 - 12.2 fL low Not Available Not Available 11/04/2024 14:03:36 10/12/19 25 10/11/2024 CBC w/ auto diff differential cell count method, blood (obs) AUTOMA GRAEME DIFFER ENTIAL Not Available Not Available 14:03:36 10/12/19 25 10/11/2024 CBC w/ auto diff neutrophils/ 100 leukocytes, automated, blood (obs) 67.9 % Not Available Not Available 11/04/2024 14:03:36 10/12/19 25 10/11/2024 CBC w/ auto diff lymphocytes/ 100 leukocytes, automated, blood (obs) 19.2 % Not Available Not Available 11/04/2024 14:03:36 10/12/19 25 10/11/2024 CBC w/ auto diff monocytes/10 0 leukocytes, automated, blood (obs) 8 % Not Available Not Available 11/04/2024 14:03:36 10/12/19 25 10/11/2024 CBC w/ auto diff eosinophils/ 100 leukocytes, automated, blood (obs) 3.8 % Not Available Not Available 11/04/2024 14:03:36 10/12/19 25 10/11/2024 CBC w/ auto diff basophils/10 0 leukocytes, automated, blood (obs) 0.7 % Not Available Not Available 11/04/2024 14:03:36 10/12/19 25 10/11/2024 CBC w/ auto diff immature granulocytes /100 leukocytes, automated, blood (obs) 0.4 % Not Available Not Available 11/04/2024 14:03:36 10/12/19 25 10/11/2024 CBC w/ auto diff neutrophils, count, blood (obs) 7.59 text: 1.80 - 7.70 x10'3/ uL Not Available Not Available 11/04/2024 14:03:36 10/12/19 25 10/11/2024 CBC w/ auto diff lymphocytes, blood (obs) 2.15 text: 1.00 - 4.80 x10'3/ uL Not Available Not Available 11/04/2024 14:03:36 10/12/19 25 10/11/2024 CBC w/ auto diff monocytes, count, blood (obs) 0.9 text: 0.24 - 0.86 x10'3/ uL high Not Available Not Available 11/04/2024 14:03:36 10/12/19 25 10/11/2024 CBC w/ auto diff eosinophils, quant, blood 0.43 text: 0.04 - 0.36 x10'3/ uL high Not Available Not Available 11/04/2024 14:03:36 10/12/19 25 10/11/2024 CBC w/ auto diff basophils, count, blood (obs) 0.08 text: 0.01 - 0.08 x10'3/ uL Not Available Not Available 11/04/2024 14:03:36 10/12/19 25 10/11/2024 CBC w/ auto diff immature granulocytes count, blood 0.04 text: 0.00 - 0.49 x10'3/ uL Not Available Not Available 11/04/2024 14:03:36 10/12/19 25 10/11/2024 CBC w/ auto diff lab interpretati on Abnorm al Not Available Not Available 14:03:36 10/12/19 25 10/11/2024 gluco se, QN, test strip , auto, blood glucose, qn, test strip, auto, blood 136 mg/dL low: 70mg/d Lhigh: 99mg/d L high Not Available Not Available 11/04/2024 14:03:35 10/12/19 25 10/11/2024 gluco se, QN, test strip , auto, blood lab interpretati on Abnorm al Not Available Not Available 14:03:35 10/12/19 25 10/11/2024 gluco se, QN, test strip , auto, blood glucose, qn, test strip, auto, blood 45 mg/dL low: 70mg/d Lhigh: 99mg/d L low Not Available Not Available 11/04/2024 14:03:35 10/12/19 25 10/11/2024 gluco se, QN, test strip , auto, blood lab interpretati on Abnorm al Not Available Not Available 14:03:35 10/12/19 25 10/11/2024 gluco se, QN, test strip , auto, blood glucose, qn, test strip, auto, blood 47 mg/dL low: 70mg/d Lhigh: 99mg/d L low Not Available Not Available 11/04/2024 14:03:35 10/12/19 25 10/11/2024 gluco se, QN, test strip , auto, blood lab interpretati on Abnorm al Not Available Not Available 14:03:35 10/13/19 25 10/12/2024 gluco se, QN, test strip , auto, blood glucose, qn, test strip, auto, blood 163 mg/dL low: 70mg/d Lhigh: 99mg/d L high Not Available Not Available 11/04/2024 14:03:37 10/13/19 25 10/12/2024 gluco se, QN, test strip , auto, blood lab interpretati on Abnorm al Not Available Not Available 14:03:37 10/13/19 25 10/12/2024 gluco se, QN, test strip , auto, blood glucose, qn, test strip, auto, blood 121 mg/dL low: 70mg/d Lhigh: 99mg/d L high Not Available Not Available 11/04/2024 14:03:37 10/13/19 25 10/12/2024 gluco se, QN, test strip , auto, blood lab interpretati on Abnorm al Not Available Not Available 14:03:37 10/13/19 25 10/12/2024 gluco se, QN, test strip , auto, blood glucose, qn, test strip, auto, blood 89 mg/dL low: 70mg/d Lhigh: 99mg/d L Not Available Not Available 11/04/2024 14:03:37 10/13/19 25 10/12/2024 hepar in, unfra ction ated, quant , plate let poor plasm a heparin, unfractionat ed, quant, platelet poor plasma 0.38 text: 0.30 - 0.70 IU/mL UFH Thera peuti c Anti Xa Range s: Medic al Thera peuti c Range : 0.30 - 0.70 IU/mL Cardi ac Thera peuti c Range : 0.30 - 0.50 IU/mL Neuro Thera peuti c Range : 0.20 - 0.40 IU/mL Not Available Not Available 11/04/2024 14:03:37 10/13/19 25 10/12/2024 proth rombi n time prothrombin time 12.9 text: 10.2 - 12.9 sec Not Available Not Available 11/04/2024 14:03:37 10/13/19 25 10/12/2024 proth rombi n time INR, plasma 1.1 Recom silvina d INR Thera peuti c Goals : 2.0-3 .0 Routi ne Thera py 2.5-3 .5 Mecha nical Prost hetic Valve s (High Risk) Not Available Not Available 11/04/2024 14:03:37 10/13/19 25 10/12/2024 BMP, serum or plasm a glucose, qn [mass/volume ], serum or plasma 140 text: 70 - 99 mg/dL high Not Available Not Available 11/04/2024 14:03:37 10/13/19 25 10/12/2024 BMP, serum or plasm a BUN (blood urea nitrogen), serum or plasma 50 text: 7 - 18 mg/dL high Not Available Not Available 11/04/2024 14:03:37 10/13/19 25 10/12/2024 BMP, serum or plasm a creatinine, serum or plasma 14.7 text: 0.55 - 1.02 mg/dL critical high NOT SAUCEDA D PER CRITI BERTRAND VALUE POLIC Y Not Available Not Available 11/04/2024 14:03:37 10/13/19 25 10/12/2024 BMP, serum or plasm a sodium, serum or plasma 136 text: 136 - 145 mmol/L Not Available Not Available 11/04/2024 14:03:37 10/13/19 25 10/12/2024 BMP, serum or plasm a potassium, serum or plasma 3.8 text: 3.5 - 5.1 mmol/L Not Available Not Available 11/04/2024 14:03:37 10/13/19 25 10/12/2024 BMP, serum or plasm a chloride, serum or plasma 99 text: 97 - 115 mmol/L Not Available Not Available 11/04/2024 14:03:37 10/13/19 25 10/12/2024 BMP, serum or plasm a CO2, (carbon dioxide), total, serum or plasma 27.4 text: 21 - 32 mmol/L Not Available Not Available 11/04/2024 14:03:37 10/13/19 25 10/12/2024 BMP, serum or plasm a calcium, serum or plasma 8.6 text: 8.5 - 10.1 mg/dL Not Available Not Available 11/04/2024 14:03:37 10/13/19 25 10/12/2024 BMP, serum or plasm a anion gap, serum or plasma 9.6 text: 2 - 10 mmol/L Not Available Not Available 11/04/2024 14:03:37 10/13/19 25 10/12/2024 BMP, serum or plasm a BUN/creatini ne, ratio, serum 3.4 low: 6high: 26 low Not Available Not Available 11/04/2024 14:03:37 10/13/19 25 10/12/2024 BMP, serum or plasm a glomerular filtration rate/1.73 sq M predicted, qn, creatinine based formula (CKD-epi 2020), serum or plasma or blood 3 text: >90 mL/min /1.73 M2 low NOTE: eGFR is not calcu lated for patie nts <18 years of age or gende r unkno wn. This is an estim ated GFR calcu latio n using the new CKD EPI creat inine equat ion witho ut race and so does not requi re a corre ction facto r for race. This estim ated GFR shoul d not be used for calcu latin g drug doses . Not Available Not Available 11/04/2024 14:03:37 10/13/19 25 10/12/2024 BMP, serum or plasm a lab interpretati on Abnorm al Not Available Not Available 14:03:37 10/13/19 25 10/12/2024 CBC w/ auto diff WBC, auto, blood 11.5 text: 4.5 - 11.0 x10'3/ uL high Not Available Not Available 11/04/2024 14:03:37 10/13/19 25 10/12/2024 CBC w/ auto diff RBC count, blood 3.41 text: 4.20 - 5.40 x10'6/ uL low Not Available Not Available 11/04/2024 14:03:37 10/13/19 25 10/12/2024 CBC w/ auto diff hemoglobin (Hb), blood 8.4 text: 12.0 - 16.0 g/dL low Not Available Not Available 11/04/2024 14:03:37 10/13/19 25 10/12/2024 CBC w/ auto diff hematocrit, blood 27.1 % low: 38%hig h: 48% low Not Available Not Available 11/04/2024 14:03:37 10/13/19 25 10/12/2024 CBC w/ auto diff MCV, qn (obs) 79.5 text: 81.0 - 99.0 fL low Not Available Not Available 11/04/2024 14:03:37 10/13/19 25 10/12/2024 CBC w/ auto diff MCH, qn (obs) 24.6 pg low: 27pghi gh: 31pg low Not Available Not Available 11/04/2024 14:03:37 10/13/19 25 10/12/2024 CBC w/ auto diff mean corpuscular hemoglobin concentratio n, qn, RBC 31 text: 32.0 - 36.0 g/dL low Not Available Not Available 11/04/2024 14:03:37 10/13/19 25 10/12/2024 CBC w/ auto diff RDW 15.9 % low: 11.5%h igh: 14.5% high Not Available Not Available 11/04/2024 14:03:37 10/13/19 25 10/12/2024 CBC w/ auto diff platelet count, blood 340 text: 130 - 400 x10'3/ uL Not Available Not Available 11/04/2024 14:03:37 10/13/19 25 10/12/2024 CBC w/ auto diff platelet mean volume, qn, blood (obs) 9.7 text: 9.3 - 12.2 fL Not Available Not Available 11/04/2024 14:03:37 10/13/19 25 10/12/2024 CBC w/ auto diff differential cell count method, blood (obs) AUTOMA GRAEME DIFFER ENTIAL Not Available Not Available 14:03:37 10/13/19 25 10/12/2024 CBC w/ auto diff neutrophils/ 100 leukocytes, automated, blood (obs) 66 % Not Available Not Available 11/04/2024 14:03:37 10/13/19 25 10/12/2024 CBC w/ auto diff lymphocytes/ 100 leukocytes, automated, blood (obs) 20.6 % Not Available Not Available 11/04/2024 14:03:37 10/13/19 25 10/12/2024 CBC w/ auto diff monocytes/10 0 leukocytes, automated, blood (obs) 8.4 % Not Available Not Available 11/04/2024 14:03:37 08/20/10/12/2024 CBC w/ auto diff eosinophils/ 100 leukocytes, automated, blood (obs) 3.7 % Not Available Not Available 11/04/2024 14:03:37 10/13/19 25 10/12/2024 CBC w/ auto diff basophils/10 0 leukocytes, automated, blood (obs) 0.8 % Not Available Not Available 11/04/2024 14:03:37 10/13/19 25 10/12/2024 CBC w/ auto diff immature granulocytes /100 leukocytes, automated, blood (obs) 0.5 % Not Available Not Available 11/04/2024 14:03:37 10/13/19 25 10/12/2024 CBC w/ auto diff neutrophils, count, blood (obs) 7.58 text: 1.80 - 7.70 x10'3/ uL Not Available Not Available 11/04/2024 14:03:37 10/13/19 25 10/12/2024 CBC w/ auto diff lymphocytes, blood (obs) 2.37 text: 1.00 - 4.80 x10'3/ uL Not Available Not Available 11/04/2024 14:03:37 10/13/19 25 10/12/2024 CBC w/ auto diff monocytes, count, blood (obs) 0.97 text: 0.24 - 0.86 x10'3/ uL high Not Available Not Available 11/04/2024 14:03:37 10/13/19 25 10/12/2024 CBC w/ auto diff eosinophils, quant, blood 0.43 text: 0.04 - 0.36 x10'3/ uL high Not Available Not Available 11/04/2024 14:03:37 10/13/19 25 10/12/2024 CBC w/ auto diff basophils, count, blood (obs) 0.09 text: 0.01 - 0.08 x10'3/ uL high Not Available Not Available 11/04/2024 14:03:37 10/13/19 25 10/12/2024 CBC w/ auto diff immature granulocytes count, blood 0.06 text: 0.00 - 0.49 x10'3/ uL Not Available Not Available 11/04/2024 14:03:37 10/13/19 25 10/12/2024 CBC w/ auto diff lab interpretati on Abnorm al Not Available Not Available 14:03:37 10/13/19 25 10/12/2024 gluco se, QN, test strip , auto, blood glucose, qn, test strip, auto, blood 161 mg/dL low: 70mg/d Lhigh: 99mg/d L high Not Available Not Available 11/04/2024 14:03:37 10/13/19 25 10/12/2024 gluco se, QN, test strip , auto, blood lab interpretati on Abnorm al Not Available Not Available 14:03:37 10/13/19 25 10/12/2024 hepar in, unfra ction ated, quant , plate let poor plasm a heparin, unfractionat ed, quant, platelet poor plasma 0.37 text: 0.30 - 0.70 IU/mL UFH Thera peuti c Anti Xa Range s: Medic al Thera peuti c Range : 0.30 - 0.70 IU/mL Cardi ac Thera peuti c Range : 0.30 - 0.50 IU/mL Neuro Thera peuti c Range : 0.20 - 0.40 IU/mL Not Available Not Available 11/04/2024 14:03:36 10/14/19 25 10/13/2024 SJS CYTOL OGY sjs cytology [facility] Dep[facility] tment of Labor atory Medic ine [address] [facility] [address] [facility] [place] [address] Telep karissa: [phone], exten [place] [id number] 07 Patho logy Repor t Non-g yneco logic Cytol ogy Repor t Name: DOMINGA ZAMBRANO Speci men #: [id number] Age: [id number] (Age: 44) Locat ion: [facility] Sex: F Proce dure Date: 2024 Hospi ozzie #: [id number] Date Recei wesley: 2024 Date Repor graeme: 025 Provi abdirahman: IFATH Thea Ji MD PHD Sourc e: PERIT CALDERÓN FLUID Clini bertrand Histo ry: End stage renal disea se, pneum onia FINAL DIAGN OSIS: Perit calderón fluid , parac entes is: - Satis facto ry for evalu ation . - Negat kmaini for malig nant cells . Diagn osis Comme nt: Immun ohist ochem ical stain s are perfo rmed on the cell block to rule out metas tatic carci noma. David-E P4 and MOC31 are negat kamini for metas tatic carci noma. Calre tinin and WT1 highl ight scatt ered mesot kerrie l cells . CD68 highl ights scatt ered histi ocyte s. Gross Descr iptio n: SPECI MEN RECEI WESLEY: 50 cc's of light yello w fluid SLIDE S PREPA RED: 1 ThinP rep and cell block slide (s); all slide s were micro scopi aaron exami nino by a patho logis t. STAIN S: Papan icola ou, H & E All immun ohist ochem ical and histo chemi bertrand tests were devel oped by and perfo rmed at [facility] , [address], [facility] [place] [address] . All tests repor graeme here have not been clear ed or appro wesley by the [place]. Food and Drug Admin istra tion (FDA) . This labor atory is regul ated under CLIA as quali fied to perfo rm high- compl exity testi ng. These tests are used for clini bertrand purpo ses. They shoul d not be regar ded as inves tigat ional or for resea rch. Posit kamini and negat kamini contr ols show appro priat e react ivity . Initi al cytol ogic scree lexx, inter preta tion, and sign out were perfo rmed at [facility], [address] , [place] [address] . Kristel ctron icall y Mayuri d Out uGillermo kennedy M.D. Not Available [facility] (Lab) [address], [place], [address], 10/25/2024 16:28:00 10/14/19 25 10/13/2024 gluco se, QN, test strip , auto, blood glucose, qn, test strip, auto, blood 241 mg/dL low: 70mg/d Lhigh: 99mg/d L high Not Available Not Available 11/04/2024 14:03:38 10/14/19 25 10/13/2024 gluco se, QN, test strip , auto, blood lab interpretati on Abnorm al Not Available Not Available 14:03:38 10/14/19 25 10/15/2024 cultu re, aerob ic, body fluid specimen source identified (obs) PERITO MITESH FLUID Not Available Not Available 14:03:38 10/14/19 25 10/15/2024 cultu re, aerob ic, body fluid special requests NO SPECIA L REQUES T Not Available Not Available 14:03:38 10/14/19 25 10/15/2024 cultu re, aerob ic, body fluid gram stain MODERA TE WHITE BLOOD CELLS SEEN Not Available Not Available 14:03:38 10/14/19 25 10/15/2024 cultu re, aerob ic, body fluid gram stain NO ORGANI SMS SEEN Not Available Not Available 14:03:38 10/14/19 25 10/15/2024 cultu re, aerob ic, body fluid culture, bacterial SPARSE GROWTH OF STAPH. SPECIE S NOT STAPH. AUREUS SUSCEP TIBILT Y NOT ROUTIN NAIMA PERFOR MED. SAVING ISOLAT E FOR 5 DAYS. CONTAC T MICROB IOLOGY DEPART MENT IF FURTHE R WORKUP IS INDICA GRAEME. critical abnormal Not Available Not Available 11/04/2024 14:03:38 10/14/19 25 10/15/2024 cultu re, aerob ic, body fluid culture, bacterial GRAM POSITI VE COCCI CALLLE D TO AND REPEAT ED BACK BY JAIRO REID, NURSE, AT 1515, . DJW Not Available Not Available 14:03:38 10/14/19 25 10/15/2024 cultu re, aerob ic, body fluid lab interpretati on Abnorm al Not Available Not Available 14:03:38 10/14/19 25 10/13/2024 cell count , body fluid source (fluid) PERITO MITESH FLUID Not Available Not Available 14:03:38 10/14/19 25 10/13/2024 cell count , body fluid volume (fluid) 60 mL Not Available Not Available 10/24 14:03:38 10/14/19 25 10/13/2024 cell count , body fluid color, body fluid (obs) LIGHT YELLOW Not Available Not Available 14:03:38 10/14/19 25 10/13/2024 cell count , body fluid clarity of specimen (obs) CLOUDY Not Available Not Available 10/24 14:03:38 10/14/19 25 10/13/2024 cell count , body fluid erythrocytes , qn, body fluid 0 text: cells/ uL The refer ence range and other metho d perfo rmanc e speci ficat ions have not been estab lishe d for this assay on body fluid s. The test resul t shoul d be integ rated into the clini bertrand trixie xt for inter preta tion and utili zed in maria dolores rison to blood sarah ntrat ions of the natalie te as appro priat e. Not Available Not Available 11/04/2024 14:03:38 10/14/19 25 10/13/2024 cell count , body fluid nucleated cells, count, body fluid (obs) [id number] text: cells/ uL The refer ence range and other metho d perfo rmanc e speci ficat ions have not been estab lishe d for this assay on body fluid s. The test resul t shoul d be integ rated into the clini bertrand trixie xt for inter preta tion and utili zed in maria dolores rison to blood sarah ntrat ions of the natalie te as appro priat e. Not Available Not Available 11/04/2024 14:03:38 10/14/19 25 10/13/2024 cell count , body fluid neutrophils/ 100 leukocytes, body fluid (obs) 83 % The refer ence range and other metho d perfo rmanc e speci ficat ions have not been estab lishe d for this assay on body fluid s. The test resul t shoul d be integ rated into the clini bertrand trixie xt for inter preta tion and utili zed in maria dolores rison to blood sarah ntrat ions of the natalie te as appro priat e. Not Available Not Available 11/04/2024 14:03:38 10/14/1910/13/2024 cell count , body fluid lymphocytes/ 100 leukocytes, body fluid (obs) 7 % The refer ence range and other metho d perfo rmanc e speci ficat ions have not been estab lishe d for this assay on body fluid s. The test resul t shoul d be integ rated into the clini bertrand trixie xt for inter preta tion and utili zed in maria dolores rison to blood sarah ntrat ions of the natalie te as appro priat e. Not Available Not Available 11/04/2024 14:03:38 10/14/1910/13/2024 cell count , body fluid mononuclear cells/100 leukocytes, manual, body fluid (obs) 10 % THE FOLLO WING MAY INCLU DE MONOC YTE/M ACROP GISEL, PLASM A CELL, MESOT KERRIE L CELL, BRONC HIAL LININ G CELL, SYNOV IAL LININ G CELL, VENTR ICULA R LININ G CELL, ENDOT KERRIE L CELL, SQUAM OUS EPITH ELIAL AND OTHER CELLS . The refer ence range and other metho d perfo rmanc e speci ficat ions have not been estab lishe d for this assay on body fluid s. The test resul t shoul d be integ rated into the clini bertrand trixie xt for inter preta tion and utili zed in maria dolores rison to blood sarah ntrat ions of the natalie te as appro priat e. Not Available Not Available 11/04/2024 14:03:38 10/14/1910/13/2024 phosp horus , serum or plasm a phosphorus, serum or plasma 6.6 text: 2.5 - 4.9 mg/dL high Not Available Not Available 11/04/2024 14:03:38 10/14/19 25 10/13/2024 phosp horus , serum or plasm a lab interpretati on Abnorm al Not Available Not Available 14:03:38 10/14/1910/13/2024 magne sium, serum or plasm a magnesium, serum or plasma 1.9 text: 1.8 - 2.4 mg/dL Not Available Not Available 11/04/2024 14:03:38 10/14/19 25 10/13/2024 BMP, serum or plasm a glucose, qn [mass/volume ], serum or plasma 116 text: 70 - 99 mg/dL high Not Available Not Available 11/04/2024 14:03:38 10/14/19 25 10/13/2024 BMP, serum or plasm a BUN (blood urea nitrogen), serum or plasma 50 text: 7 - 18 mg/dL high Not Available Not Available 11/04/2024 14:03:38 10/14/19 25 10/13/2024 BMP, serum or plasm a creatinine, serum or plasma 14.5 text: 0.55 - 1.02 mg/dL critical high NOT SAUCEDA D PER CRITI BERTRAND VALUE POLIC Y Not Available Not Available 11/04/2024 14:03:38 10/14/19 25 10/13/2024 BMP, serum or plasm a sodium, serum or plasma 133 text: 136 - 145 mmol/L low Not Available Not Available 11/04/2024 14:03:38 10/14/19 25 10/13/2024 BMP, serum or plasm a potassium, serum or plasma 4.1 text: 3.5 - 5.1 mmol/L Not Available Not Available 11/04/2024 14:03:38 10/14/19 25 10/13/2024 BMP, serum or plasm a chloride, serum or plasma 98 text: 97 - 115 mmol/L Not Available Not Available 11/04/2024 14:03:38 10/14/19 25 10/13/2024 BMP, serum or plasm a CO2, (carbon dioxide), total, serum or plasma 25.5 text: 21 - 32 mmol/L Not Available Not Available 11/04/2024 14:03:38 10/14/19 25 10/13/2024 BMP, serum or plasm a calcium, serum or plasma 9 text: 8.5 - 10.1 mg/dL Not Available Not Available 11/04/2024 14:03:38 10/14/19 25 10/13/2024 BMP, serum or plasm a anion gap, serum or plasma 9.5 text: 2 - 10 mmol/L Not Available Not Available 11/04/2024 14:03:38 10/14/19 25 10/13/2024 BMP, serum or plasm a BUN/creatini ne, ratio, serum 3.4 low: 6high: 26 low Not Available Not Available 11/04/2024 14:03:38 10/14/19 25 10/13/2024 BMP, serum or plasm a glomerular filtration rate/1.73 sq M predicted, qn, creatinine based formula (CKD-epi 2020), serum or plasma or blood 3 text: >90 mL/min /1.73 M2 low NOTE: eGFR is not calcu lated for patie nts <18 years of age or gende r unkno wn. This is an estim ated GFR calcu latio n using the new CKD EPI creat inine equat ion witho ut race and so does not requi re a corre ction facto r for race. This estim ated GFR shoul d not be used for calcu latin g drug doses . Not Available Not Available 11/04/2024 14:03:38 10/14/19 25 10/13/2024 BMP, serum or plasm a lab interpretati on Abnorm al Not Available Not Available 14:03:38 10/14/19 25 10/13/2024 gluco se, QN, test strip , auto, blood glucose, qn, test strip, auto, blood 204 mg/dL low: 70mg/d Lhigh: 99mg/d L high Not Available Not Available 11/04/2024 14:03:38 10/14/19 25 10/13/2024 gluco se, QN, test strip , auto, blood lab interpretati on Abnorm al Not Available Not Available 14:03:38 10/14/19 25 10/13/2024 gluco se, QN, test strip , auto, blood glucose, qn, test strip, auto, blood 133 mg/dL low: 70mg/d Lhigh: 99mg/d L high Not Available Not Available 11/04/2024 14:03:38 10/14/19 25 10/13/2024 gluco se, QN, test strip , auto, blood lab interpretati on Abnorm al Not Available Not Available 14:03:38 10/14/19 25 10/19/2024 gluco se, QN, test strip , auto, blood glucose, qn, test strip, auto, blood low: 70mg/d Lhigh: 99mg/d L critical low Will Repea t Test Not Available Not Available 11/04/2024 14:03:38 10/14/19 25 10/19/2024 gluco se, QN, test strip , auto, blood lab interpretati on Abnorm al Not Available Not Available 14:03:38 10/14/19 25 10/16/2024 cultu re, blood specimen source identified (obs) BLOOD Not Available Not Available 10/24 14:03:38 10/14/19 25 10/16/2024 cultu re, blood special requests NO SPECIA L REQUES T Not Available Not Available 14:03:38 10/14/19 25 10/16/2024 cultu re, blood gram stain GRAM POSITI VE COCCI RESEMB LING STAPHY LOCOCC US SPECIE S IN [facility] BLOOD CULTUR E Not Available Not Available 14:03:38 10/14/19 25 10/16/2024 cultu re, blood gram stain CALLED GRAM STAIN TO AND REPEAT ED BACK BY DELFINO MINER AT [id number] DY Not Available Not Available 14:03:38 10/14/19 25 10/16/2024 cultu re, blood culture, bacterial GROWTH OF STAPH. SPECIE S NOT STAPH. AUREUS SUSCEP TIBILT Y NOT ROUTIN NAIMA PERFOR MED. SAVING ISOLAT E FOR 5 DAYS. CONTAC T MICROB IOLOGY DEPART MENT IF FURTHE R WORKUP IS INDICA GRAEME. critical abnormal Not Available Not Available 11/04/2024 14:03:38 10/14/19 25 10/16/2024 cultu re, blood lab interpretati on Abnorm al Not Available Not Available 14:03:38 10/14/19 25 10/16/2024 cultu re, blood specimen source identified (obs) BLOOD Not Available Not Available 10/24 14:03:38 10/14/19 25 10/16/2024 cultu re, blood special requests NO SPECIA L REQUES T Not Available Not Available 14:03:38 10/14/19 25 10/16/2024 cultu re, blood gram stain GRAM POSITI VE COCCI RESEMB LING STAPHY LOCOCC US SPECIE S IN [facility]ED[facility]AT [facility] BLOOD CULTUR E BOTTLE Not Available Not Available 14:03:38 10/14/19 25 10/16/2024 cultu re, blood gram stain GRAM STAIN CALLED TO AND REPEAT ED BACK [place]EE[place] M[place] 0824 ON 2024. CLW Not Available Not Available 14:03:38 10/14/19 25 10/16/2024 cultu re, blood gram stain PCR TESTIN G PERFOR MED ON THIS SAMPLE Not Available Not Available 14:03:38 10/14/19 25 10/16/2024 cultu re, blood culture, bacterial GROWTH OF STAPH. SPECIE S NOT STAPH. AUREUS SUSCEP TIBILT Y NOT ROUTIN NAIMA PERFOR MED. SAVING ISOLAT E FOR 5 DAYS. CONTAC T MICROB IOLOGY DEPART MENT IF FURTHE R WORKUP IS INDICA GRAEME. critical abnormal Not Available Not Available 11/04/2024 14:03:38 10/14/19 25 10/16/2024 cultu re, blood lab interpretati on Abnorm al Not Available Not Available 14:03:38 10/14/19 25 10/14/2024 methi cilli n resis tant staph yloco ccus aureu s, cultu re, unspe cifie d speci men specimen source identified (obs) NASAL Not Available Not Available 10/24 14:03:37 10/14/19 25 10/14/2024 methi cilli n resis tant staph yloco ccus aureu s, cultu re, unspe cifie d speci men special requests NO SPECIA L REQUES T Not Available Not Available 14:03:37 10/14/19 25 10/14/2024 methi cilli n resis tant staph yloco ccus aureu s, cultu re, unspe cifie d speci men culture, bacterial NO METHIC ILLIN RESIST ANT STAPHY LOCOCC US AUREUS ISOLAT ED Not Available Not Available 14:03:37 10/14/19 25 10/13/2024 gluco se, QN, test strip , auto, blood glucose, qn, test strip, auto, blood 67 mg/dL low: 70mg/d Lhigh: 99mg/d L low Not Available Not Available 11/04/2024 14:03:37 10/14/19 25 10/13/2024 gluco se, QN, test strip , auto, blood lab interpretati on Abnorm al Not Available Not Available 14:03:37 10/14/19 25 10/13/2024 phosp horus , serum or plasm a phosphorus, serum or plasma 6.1 text: 2.5 - 4.9 mg/dL high Not Available Not Available 11/04/2024 14:03:37 10/14/19 25 10/13/2024 phosp horus , serum or plasm a lab interpretati on Abnorm al Not Available Not Available 14:03:37 10/14/19 25 10/13/2024 BMP, serum or plasm a glucose, qn [mass/volume ], serum or plasma 202 text: 70 - 99 mg/dL high Not Available Not Available 11/04/2024 14:03:37 10/14/19 25 10/13/2024 BMP, serum or plasm a BUN (blood urea nitrogen), serum or plasma 47 text: 7 - 18 mg/dL high Not Available Not Available 11/04/2024 14:03:37 10/14/19 25 10/13/2024 BMP, serum or plasm a creatinine, serum or plasma 14.2 text: 0.55 - 1.02 mg/dL critical high NOT SAUCEDA D PER CRITI BERTRAND VALUE POLIC Y Not Available Not Available 11/04/2024 14:03:37 10/14/19 25 10/13/2024 BMP, serum or plasm a sodium, serum or plasma 133 text: 136 - 145 mmol/L low Not Available Not Available 11/04/2024 14:03:37 10/14/19 25 10/13/2024 BMP, serum or plasm a potassium, serum or plasma 3.8 text: 3.5 - 5.1 mmol/L Not Available Not Available 11/04/2024 14:03:37 10/14/19 25 10/13/2024 BMP, serum or plasm a chloride, serum or plasma 97 text: 97 - 115 mmol/L Not Available Not Available 11/04/2024 14:03:37 10/14/19 25 10/13/2024 BMP, serum or plasm a CO2, (carbon dioxide), total, serum or plasma 27.5 text: 21 - 32 mmol/L Not Available Not Available 11/04/2024 14:03:37 10/14/19 25 10/13/2024 BMP, serum or plasm a calcium, serum or plasma 8.7 text: 8.5 - 10.1 mg/dL Not Available Not Available 11/04/2024 14:03:37 10/14/19 25 10/13/2024 BMP, serum or plasm a anion gap, serum or plasma 8.5 text: 2 - 10 mmol/L Not Available Not Available 11/04/2024 14:03:37 10/14/19 25 10/13/2024 BMP, serum or plasm a BUN/creatini ne, ratio, serum 3.3 low: 6high: 26 low Not Available Not Available 11/04/2024 14:03:37 10/14/19 25 10/13/2024 BMP, serum or plasm a glomerular filtration rate/1.73 sq M predicted, qn, creatinine based formula (CKD-epi 2020), serum or plasma or blood 3 text: >90 mL/min /1.73 M2 low NOTE: eGFR is not calcu lated for patie nts <18 years of age or gende r unkno wn. This is an estim ated GFR calcu latio n using the new CKD EPI creat inine equat ion witho ut race and so does not requi re a corre ction facto r for race. This estim ated GFR shoul d not be used for calcu latin g drug doses . Not Available Not Available 11/04/2024 14:03:37 10/14/19 25 10/13/2024 BMP, serum or plasm a lab interpretati on Abnorm al Not Available Not Available 14:03:37 10/14/19 25 10/13/2024 CBC w/ auto diff WBC, auto, blood 14.18 text: 4.5 - 11.0 x10'3/ uL high Not Available Not Available 11/04/2024 14:03:37 10/14/19 25 10/13/2024 CBC w/ auto diff RBC count, blood 2.98 text: 4.20 - 5.40 x10'6/ uL low Not Available Not Available 11/04/2024 14:03:37 10/14/19 25 10/13/2024 CBC w/ auto diff hemoglobin (Hb), blood 7.6 text: 12.0 - 16.0 g/dL low Not Available Not Available 11/04/2024 14:03:37 10/14/19 25 10/13/2024 CBC w/ auto diff hematocrit, blood 23.7 % low: 38%hig h: 48% low Not Available Not Available 11/04/2024 14:03:37 10/14/19 25 10/13/2024 CBC w/ auto diff MCV, qn (obs) 79.5 text: 81.0 - 99.0 fL low Not Available Not Available 11/04/2024 14:03:37 10/14/19 25 10/13/2024 CBC w/ auto diff MCH, qn (obs) 25.5 pg low: 27pghi gh: 31pg low Not Available Not Available 11/04/2024 14:03:37 10/14/19 25 10/13/2024 CBC w/ auto diff mean corpuscular hemoglobin concentratio n, qn, RBC 32.1 text: 32.0 - 36.0 g/dL Not Available Not Available 11/04/2024 14:03:37 10/14/19 25 10/13/2024 CBC w/ auto diff RDW 15.9 % low: 11.5%h igh: 14.5% high Not Available Not Available 11/04/2024 14:03:37 10/14/19 25 10/13/2024 CBC w/ auto diff platelet count, blood 310 text: 130 - 400 x10'3/ uL Not Available Not Available 11/04/2024 14:03:37 10/14/19 25 10/13/2024 CBC w/ auto diff platelet mean volume, qn, blood (obs) 9.8 text: 9.3 - 12.2 fL Not Available Not Available 11/04/2024 14:03:37 10/14/19 25 10/13/2024 CBC w/ auto diff differential cell count method, blood (obs) AUTOMA GRAEME DIFFER ENTIAL Not Available Not Available 14:03:37 10/14/19 25 10/13/2024 CBC w/ auto diff neutrophils/ 100 leukocytes, automated, blood (obs) 78.2 % Not Available Not Available 11/04/2024 14:03:37 10/14/19 25 10/13/2024 CBC w/ auto diff lymphocytes/ 100 leukocytes, automated, blood (obs) 12.7 % Not Available Not Available 11/04/2024 14:03:37 10/14/19 25 10/13/2024 CBC w/ auto diff monocytes/10 0 leukocytes, automated, blood (obs) 7.3 % Not Available Not Available 11/04/2024 14:03:37 10/14/19 25 10/13/2024 CBC w/ auto diff eosinophils/ 100 leukocytes, automated, blood (obs) 0.8 % Not Available Not Available 11/04/2024 14:03:37 10/14/19 25 10/13/2024 CBC w/ auto diff basophils/10 0 leukocytes, automated, blood (obs) 0.4 % Not Available Not Available 11/04/2024 14:03:37 10/14/19 25 10/13/2024 CBC w/ auto diff immature granulocytes /100 leukocytes, automated, blood (obs) 0.6 % Not Available Not Available 11/04/2024 14:03:37 10/14/19 25 10/13/2024 CBC w/ auto diff neutrophils, count, blood (obs) 11.08 text: 1.80 - 7.70 x10'3/ uL high Not Available Not Available 11/04/2024 14:03:37 10/14/19 25 10/13/2024 CBC w/ auto diff lymphocytes, blood (obs) 1.8 text: 1.00 - 4.80 x10'3/ uL Not Available Not Available 11/04/2024 14:03:37 10/14/19 25 10/13/2024 CBC w/ auto diff monocytes, count, blood (obs) 1.03 text: 0.24 - 0.86 x10'3/ uL high Not Available Not Available 11/04/2024 14:03:37 10/14/19 25 10/13/2024 CBC w/ auto diff eosinophils, quant, blood 0.12 text: 0.04 - 0.36 x10'3/ uL Not Available Not Available 11/04/2024 14:03:37 10/14/19 25 10/13/2024 CBC w/ auto diff basophils, count, blood (obs) 0.06 text: 0.01 - 0.08 x10'3/ uL Not Available Not Available 11/04/2024 14:03:37 10/14/19 25 10/13/2024 CBC w/ auto diff immature granulocytes count, blood 0.09 text: 0.00 - 0.49 x10'3/ uL Not Available Not Available 11/04/2024 14:03:37 10/14/19 25 10/13/2024 CBC w/ auto diff lab interpretati on Abnorm al Not Available Not Available 14:03:37 10/14/19 25 10/13/2024 gluco se, QN, test strip , auto, blood glucose, qn, test strip, auto, blood 277 mg/dL low: 70mg/d Lhigh: 99mg/d L high Not Available Not Available 11/04/2024 14:03:37 10/14/19 25 10/13/2024 gluco se, QN, test strip , auto, blood lab interpretati on Abnorm al Not Available Not Available 14:03:37 10/15/19 25 10/14/2024 gluco se, QN, test strip , auto, blood glucose, qn, test strip, auto, blood 301 mg/dL low: 70mg/d Lhigh: 99mg/d L high Not Available Not Available 11/04/2024 14:03:39 10/15/19 25 10/14/2024 gluco se, QN, test strip , auto, blood lab interpretati on Abnorm al Not Available Not Available 14:03:39 10/15/19 25 10/14/2024 gluco se, QN, test strip , auto, blood glucose, qn, test strip, auto, blood 248 mg/dL low: 70mg/d Lhigh: 99mg/d L high Not Available Not Available 11/04/2024 14:03:39 10/15/19 25 10/14/2024 gluco se, QN, test strip , auto, blood lab interpretati on Abnorm al Not Available Not Available 14:03:39 10/15/19 25 10/14/2024 gluco se, QN, test strip , auto, blood glucose, qn, test strip, auto, blood 199 mg/dL low: 70mg/d Lhigh: 99mg/d L high Not Available Not Available 11/04/2024 14:03:39 10/15/19 25 10/14/2024 gluco se, QN, test strip , auto, blood lab interpretati on Abnorm al Not Available Not Available 14:03:39 10/15/19 25 10/14/2024 hepat itis B surfa ce Ab, quali tativ e, serum hepatitis B surface Ab, qualitative, serum 83.57 text: mIU/mL REFER ENCE RANGE >=12. 00 PATIE NT DOES HAVE IMMUN ITY TO HEPAT ITIS B VIRUS Not Available Not Available 11/04/2024 14:03:39 10/15/19 25 10/14/2024 HBsAg (hepa titis B surfa ce Ag), serum HBsAg (hepatitis B surface Ag), serum NON-RE ACTIVE text: non-re active Not Available Not Available 11/04/2024 14:03:39 10/15/19 25 10/14/2024 folat e, serum folate, serum 3.2 text: 3.1 - 17.5 NG/mL Not Available Not Available 11/04/2024 14:03:39 10/15/19 25 10/14/2024 vitam in B12, serum vitamin B12, serum 1874 pg/mL low: 254pg/ mLhigh : 1320pg /mL high Not Available Not Available 11/04/2024 14:03:39 10/15/19 25 10/14/2024 vitam in B12, serum lab interpretati on Abnorm al Not Available Not Available 14:03:39 10/15/19 25 10/14/2024 trans cortez n, serum transferrin, serum 95 mg/dL low: 200mg/ dLhigh : 360mg/ dL low Not Available Not Available 11/04/2024 14:03:39 10/15/19 25 10/14/2024 trans cortez n, serum lab interpretati on Abnorm al Not Available Not Available 14:03:39 10/15/19 25 10/14/2024 cortez tin, serum or plasm a ferritin, serum or plasma 1096.3 text: 8.0 - 388.0 NG/mL high Not Available Not Available 11/04/2024 14:03:39 10/15/19 25 10/14/2024 cortez tin, serum or plasm a lab interpretati on Abnorm al Not Available Not Available 14:03:39 10/15/19 25 10/14/2024 iron + total iron- monty ng capac ity (TIBC ), serum iron, serum 37 text: 50.0 - 170.0 mcg/dL low Not Available Not Available 11/04/2024 14:03:39 10/15/19 25 10/14/2024 iron + total iron- monty ng capac ity (TIBC ), serum TIBC (total iron-binding capacity), serum 129 text: 250 - 450 mcg/dL low Not Available Not Available 11/04/2024 14:03:39 10/15/19 25 10/14/2024 iron + total iron- monty ng capac ity (TIBC ), serum iron saturation, serum 29 % low: 20%hig h: 55% Not Available Not Available 11/04/2024 14:03:39 10/15/19 25 10/14/2024 iron + total iron- monty ng capac ity (TIBC ), serum lab interpretati on Abnorm al Not Available Not Available 14:03:39 10/15/19 25 10/14/2024 gluco se, QN, test strip , auto, blood glucose, qn, test strip, auto, blood 276 mg/dL low: 70mg/d Lhigh: 99mg/d L high Not Available Not Available 11/04/2024 14:03:39 10/15/19 25 10/14/2024 gluco se, QN, test strip , auto, blood lab interpretati on Abnorm al Not Available Not Available 14:03:39 10/15/19 25 10/14/2024 gluco se, QN, test strip , auto, blood glucose, qn, test strip, auto, blood 287 mg/dL low: 70mg/d Lhigh: 99mg/d L high Not Available Not Available 11/04/2024 14:03:39 10/15/19 25 10/14/2024 gluco se, QN, test strip , auto, blood lab interpretati on Abnorm al Not Available Not Available 14:03:39 10/16/19 25 10/15/2024 gluco se, QN, test strip , auto, blood glucose, qn, test strip, auto, blood 145 mg/dL low: 70mg/d Lhigh: 99mg/d L high Not Available Not Available 11/04/2024 14:03:40 10/16/19 25 10/15/2024 gluco se, QN, test strip , auto, blood lab interpretati on Abnorm al Not Available Not Available 14:03:40 10/16/19 25 10/15/2024 gluco se, QN, test strip , auto, blood glucose, qn, test strip, auto, blood 116 mg/dL low: 70mg/d Lhigh: 99mg/d L high Not Available Not Available 11/04/2024 14:03:40 10/16/19 25 10/15/2024 gluco se, QN, test strip , auto, blood lab interpretati on Abnorm al Not Available Not Available 14:03:40 10/16/19 25 10/15/2024 hemog lobin + hemat ocrit , blood hemoglobin (Hb), blood 7.1 text: 12.0 - 16.0 g/dL low Not Available Not Available 11/04/2024 14:03:40 10/16/19 10/15/2024 hemog lobin + hemat ocrit , blood hematocrit, blood 23.1 % low: 38%hig h: 48% low Not Available Not Available 11/04/2024 14:03:40 10/16/19 25 10/15/2024 hemog lobin + hemat ocrit , blood lab interpretati on Abnorm al Not Available Not Available 14:03:40 10/16/19 25 10/15/2024 type + scree n, blood ABO/Rh B POSITI VE Not Available Not Available 14:03:40 10/16/19 25 10/15/2024 type + scree n, blood antibody screen, serum or plasma NEGATI VE Not Available Not Available 14:03:40 10/16/19 25 10/15/2024 type + scree n, blood specimen expiration date, blood (obs) 2024,2 359 Not Available Not Available 14:03:40 10/16/19 25 10/15/2024 cell count , body fluid source (fluid) ASCITI C FLUID Not Available Not Available 14:03:40 10/16/19 25 10/15/2024 cell count , body fluid volume (fluid) 50 mL Not Available Not Available 10/24 14:03:40 10/16/19 25 10/15/2024 cell count , body fluid color, body fluid (obs) COLORL ESS Not Available Not Available 14:03:40 10/16/19 25 10/15/2024 cell count , body fluid clarity of specimen (obs) CLEAR Not Available Not Available 10/24 14:03:40 10/16/19 25 10/15/2024 cell count , body fluid erythrocytes , qn, body fluid 0 text: cells/ uL The refer ence range and other metho d perfo rmanc e speci ficat ions have not been estab lishe d for this assay on body fluid s. The test resul t shoul d be integ rated into the clini bertrand trixie xt for inter preta tion and utili zed in [place] dolores rison to blood sarah ntrat ions of the natalie te as appro priat e. Not Available Not Available 11/04/2024 14:03:40 10/16/19 25 10/15/2024 cell count , body fluid nucleated cells, count, body fluid (obs) 150 text: cells/ uL The refer ence range and other metho d perfo rmanc e speci ficat ions have not been estab lishe d for this assay on body fluid s. The test resul t shoul d be integ rated into the clini bertrand trixie xt for inter preta tion and utili zed in maria dolores rison to blood sarah ntrat ions of the natalie te as appro priat e. Not Available Not Available 11/04/2024 14:03:40 10/16/19 25 10/15/2024 cell count , body fluid neutrophils/ 100 leukocytes, body fluid (obs) 61 % The refer ence range and other metho d perfo rmanc e speci ficat ions have not been estab lishe d for this assay on body fluid s. The test resul t shoul d be integ rated into the clini bertrand trixie xt for inter preta tion and utili zed in maria dolores rison to blood sarah ntrat ions of the natalie te as appro priat e. Not Available Not Available 11/04/2024 14:03:40 10/16/19 25 10/15/2024 cell count , body fluid lymphocytes/ 100 leukocytes, body fluid (obs) 11 % The refer ence range and other metho d perfo rmanc e speci ficat ions have not been estab lishe d for this assay on body fluid s. The test resul t shoul d be integ rated into the clini bertrand trixie xt for inter preta tion and utili zed in [place]ia dolores rison to blood sarah ntrat ions of the natalie te as appro priat e. Not Available Not Available 11/04/2024 14:03:40 10/16/19 25 10/15/2024 cell count , body fluid mononuclear cells/100 leukocytes, manual, body fluid (obs) 28 % THE FOLLO WING MAY INCLU DE MONOC YTE/M ACROP GISEL, PLASM A CELL, MESOT KERRIE L CELL, BRONC HIAL LININ G CELL, SYNOV IAL LININ G CELL, VENTR ICULA R LININ G CELL, ENDOT KERRIE L CELL, SQUAM OUS EPITH ELIAL AND OTHER CELLS . The refer ence range and other metho d perfo rmanc e speci ficat ions have not been estab lishe d for this assay on body fluid s. The test resul t shoul d be integ rated into the clini bertrand trixie xt for inter preta tion and utili zed in maria dolores rison to blood sarah ntrat ions of the natalie te as appro priat e. Not Available Not Available 11/04/2024 14:03:40 10/16/1910/15/2024 gluco se, QN, test strip , auto, blood glucose, qn, test strip, auto, blood 111 mg/dL low: 70mg/d Lhigh: 99mg/d L high Not Available Not Available 11/04/2024 14:03:40 10/16/1910/15/2024 gluco se, QN, test strip , auto, blood lab interpretati on Abnorm al Not Available Not Available 14:03:40 10/16/1910/15/2024 CMP, serum or plasm a glucose, qn [mass/volume ], serum or plasma 205 text: 70 - 99 mg/dL high Not Available Not Available 11/04/2024 14:03:40 10/16/1910/15/2024 CMP, serum or plasm a BUN (blood urea nitrogen), serum or plasma 40 text: 7 - 18 mg/dL high Not Available Not Available 11/04/2024 14:03:40 10/16/1910/15/2024 CMP, serum or plasm a creatinine, serum or plasma 13.1 text: 0.55 - 1.02 mg/dL critical high NOT SAUCEDA D PER CRITI BERTRAND VALUE POLIC Y Not Available Not Available 11/04/2024 14:03:40 10/16/1910/15/2024 CMP, serum or plasm a sodium, serum or plasma 133 text: 136 - 145 mmol/L low Not Available Not Available 11/04/2024 14:03:40 10/16/19 25 10/15/2024 CMP, serum or plasm a potassium, serum or plasma 3.6 text: 3.5 - 5.1 mmol/L Not Available Not Available 11/04/2024 14:03:40 10/16/1910/15/2024 CMP, serum or plasm a chloride, serum or plasma 97 text: 97 - 115 mmol/L Not Available Not Available 11/04/2024 14:03:40 10/16/1910/15/2024 CMP, serum or plasm a CO2, (carbon dioxide), total, serum or plasma 27.8 text: 21 - 32 mmol/L Not Available Not Available 11/04/2024 14:03:40 10/16/1910/15/2024 CMP, serum or plasm a calcium, serum or plasma 8.4 text: 8.5 - 10.1 mg/dL low Not Available Not Available 11/04/2024 14:03:40 10/16/1910/15/2024 CMP, serum or plasm a bilirubin, total, serum or plasma 0.8 text: 0.2 - 1.2 mg/dL THIS ASSAY IS NOT RECOM SILVINA D FOR PATIE NTS UNDER GOING TREAT MENT WITH ELTRO MBOPA G DUE TO THE POTEN TIAL FOR FALSE LY ELEVA GRAEME RESUL TS. Not Available Not Available 11/04/2024 14:03:40 10/16/1910/15/2024 CMP, serum or plasm a protein, total, serum 6.2 text: 6.4 - 8.2 g/dL low Not Available Not Available 11/04/2024 14:03:40 10/16/1910/15/2024 CMP, serum or plasm a albumin, serum or plasma 1.4 text: 3.4 - 5.0 g/dL low Not Available Not Available 11/04/2024 14:03:40 10/16/1910/15/2024 CMP, serum or plasm a AST/SGOT (aspartate aminotransfe rase), serum or plasma 12 U/L low: 15U/Lh igh: 37U/L low Not Available Not Available 11/04/2024 14:03:40 10/16/1910/15/2024 CMP, serum or plasm a ALT (alanine aminotransfe rase), serum or plasma 22 U/L low: 14U/Lh igh: 55U/L Not Available Not Available 11/04/2024 14:03:40 10/16/1910/15/2024 CMP, serum or plasm a alkaline phosphatase, serum or plasma 177 U/L low: 50U/Lh igh: 136U/L high Not Available Not Available 11/04/2024 14:03:40 10/16/1910/15/2024 CMP, serum or plasm a anion gap, serum or plasma 8.2 text: 2 - 10 mmol/L Not Available Not Available 11/04/2024 14:03:40 10/16/1910/15/2024 CMP, serum or plasm a BUN/creatini ne, ratio, serum 3.1 low: 6high: 26 low Not Available Not Available 11/04/2024 14:03:40 10/16/1910/15/2024 CMP, serum or plasm a albumin/glob ulin, ratio, serum 0.3 text: 1.0 - 2.0 ratio low Not Available Not Available 11/04/2024 14:03:40 10/16/1910/15/2024 CMP, serum or plasm a glomerular filtration rate/1.73 sq M predicted, qn, creatinine based formula (CKD-epi 2020), serum or plasma or blood 3 text: >90 mL/min /1.73 M2 low NOTE: eGFR is not calcu lated for patie nts <18 years of age or gende r unkno wn. This is an estim ated GFR calcu latio n using the new CKD EPI creat inine equat ion witho ut race and so does not requi re a corre ction facto r for race. This estim ated GFR shoul d not be used for calcu latin g drug doses . Not Available Not Available 11/04/2024 14:03:40 10/16/1910/15/2024 CMP, serum or plasm a lab interpretati on Abnorm al Not Available Not Available 14:03:40 10/16/19 25 10/15/2024 CBC w/ auto diff WBC, auto, blood 12.42 text: 4.5 - 11.0 x10'3/ uL high Not Available Not Available 11/04/2024 14:03:40 10/16/19 25 10/15/2024 CBC w/ auto diff RBC count, blood 2.71 text: 4.20 - 5.40 x10'6/ uL low Not Available Not Available 11/04/2024 14:03:40 10/16/19 25 10/15/2024 CBC w/ auto diff hemoglobin (Hb), blood 6.9 text: 12.0 - 16.0 g/dL critical low This resul t has been sauceda d to [place] [facility] [place] [id number] on 10/15 08:36 :21, and has been read back. Not Available Not Available 11/04/2024 14:03:40 10/16/19 25 10/15/2024 CBC w/ auto diff hematocrit, blood 21.8 % low: 38%hig h: 48% low Not Available Not Available 11/04/2024 14:03:40 10/16/19 25 10/15/2024 CBC w/ auto diff MCV, qn (obs) 80.4 text: 81.0 - 99.0 fL low Not Available Not Available 11/04/2024 14:03:40 10/16/19 25 10/15/2024 CBC w/ auto diff MCH, qn (obs) 25.5 pg low: 27pghi gh: 31pg low Not Available Not Available 11/04/2024 14:03:40 10/16/19 25 10/15/2024 CBC w/ auto diff mean corpuscular hemoglobin concentratio n, qn, RBC 31.7 text: 32.0 - 36.0 g/dL low Not Available Not Available 11/04/2024 14:03:40 10/16/19 25 10/15/2024 CBC w/ auto diff RDW 15.9 % low: 11.5%h igh: 14.5% high Not Available Not Available 11/04/2024 14:03:40 10/16/19 25 10/15/2024 CBC w/ auto diff platelet count, blood 314 text: 130 - 400 x10'3/ uL Not Available Not Available 11/04/2024 14:03:40 10/16/19 25 10/15/2024 CBC w/ auto diff platelet mean volume, qn, blood (obs) 9.8 text: 9.3 - 12.2 fL Not Available Not Available 11/04/2024 14:03:40 10/16/19 25 10/15/2024 CBC w/ auto diff differential cell count method, blood (obs) AUTOMA GRAEME DIFFER ENTIAL Not Available Not Available 14:03:40 10/16/19 25 10/15/2024 CBC w/ auto diff neutrophils/ 100 leukocytes, automated, blood (obs) 63.2 % Not Available Not Available 11/04/2024 14:03:40 10/16/19 25 10/15/2024 CBC w/ auto diff lymphocytes/ 100 leukocytes, automated, blood (obs) 22.5 % Not Available Not Available 11/04/2024 14:03:40 10/16/19 25 10/15/2024 CBC w/ auto diff monocytes/10 0 leukocytes, automated, blood (obs) 9.9 % Not Available Not Available 11/04/2024 14:03:40 10/16/19 25 10/15/2024 CBC w/ auto diff eosinophils/ 100 leukocytes, automated, blood (obs) 2.6 % Not Available Not Available 11/04/2024 14:03:40 10/16/19 25 10/15/2024 CBC w/ auto diff basophils/10 0 leukocytes, automated, blood (obs) 0.8 % Not Available Not Available 11/04/2024 14:03:40 10/16/19 25 10/15/2024 CBC w/ auto diff immature granulocytes /100 leukocytes, automated, blood (obs) 1 % Not Available Not Available 11/04/2024 14:03:40 10/16/19 25 10/15/2024 CBC w/ auto diff neutrophils, count, blood (obs) 7.84 text: 1.80 - 7.70 x10'3/ uL high Not Available Not Available 11/04/2024 14:03:40 10/16/19 25 10/15/2024 CBC w/ auto diff lymphocytes, blood (obs) 2.8 text: 1.00 - 4.80 x10'3/ uL Not Available Not Available 11/04/2024 14:03:40 10/16/19 25 10/15/2024 CBC w/ auto diff monocytes, count, blood (obs) 1.23 text: 0.24 - 0.86 x10'3/ uL high Not Available Not Available 11/04/2024 14:03:40 10/16/19 25 10/15/2024 CBC w/ auto diff eosinophils, quant, blood 0.32 text: 0.04 - 0.36 x10'3/ uL Not Available Not Available 11/04/2024 14:03:40 10/16/19 25 10/15/2024 CBC w/ auto diff basophils, count, blood (obs) 0.1 text: 0.01 - 0.08 x10'3/ uL high Not Available Not Available 11/04/2024 14:03:40 10/16/19 25 10/15/2024 CBC w/ auto diff immature granulocytes count, blood 0.13 text: 0.00 - 0.49 x10'3/ uL Not Available Not Available 11/04/2024 14:03:40 10/16/19 25 10/15/2024 CBC w/ auto diff lab interpretati on Abnorm al Not Available Not Available 14:03:40 10/16/19 25 10/15/2024 gluco se, QN, test strip , auto, blood glucose, qn, test strip, auto, blood 250 mg/dL low: 70mg/d Lhigh: 99mg/d L high Not Available Not Available 11/04/2024 14:03:40 10/16/19 25 10/15/2024 gluco se, QN, test strip , auto, blood lab interpretati on Abnorm al Not Available Not Available 14:03:40 10/17/19 25 10/16/2024 gluco se, QN, test strip , auto, blood glucose, qn, test strip, auto, blood 193 mg/dL low: 70mg/d Lhigh: 99mg/d L high Not Available Not Available 11/04/2024 14:03:41 10/17/19 25 10/16/2024 gluco se, QN, test strip , auto, blood lab interpretati on Abnorm al Not Available Not Available 14:03:41 10/17/19 25 10/16/2024 gluco se, QN, test strip , auto, blood glucose, qn, test strip, auto, blood 159 mg/dL low: 70mg/d Lhigh: 99mg/d L high Not Available Not Available 11/04/2024 14:03:41 10/17/19 25 10/16/2024 gluco se, QN, test strip , auto, blood lab interpretati on Abnorm al Not Available Not Available 14:03:41 10/17/19 25 10/21/2024 cultu re, blood specimen source identified (obs) BLOOD Not Available Not Available 10/24 14:03:41 10/17/19 25 10/21/2024 cultu re, blood special requests NO SPECIA L REQUES T Not Available Not Available 14:03:41 10/17/19 25 10/21/2024 cultu re, blood culture, bacterial NO GROWTH 5 DAYS Not Available Not Available 14:03:41 10/17/1910/21/2024 cultu re, blood specimen source identified (obs) BLOOD Not Available Not Available 10/24 14:03:41 10/17/19 25 10/21/2024 cultu re, blood special requests NO SPECIA L REQUES T Not Available Not Available 14:03:41 10/17/19 25 10/21/2024 cultu re, blood culture, bacterial NO GROWTH 5 DAYS Not Available Not Available 14:03:41 10/17/1910/16/2024 gluco se, QN, test strip , auto, blood glucose, qn, test strip, auto, blood 277 mg/dL low: 70mg/d Lhigh: 99mg/d L high Not Available Not Available 11/04/2024 14:03:41 10/17/19 25 10/16/2024 gluco se, QN, test strip , auto, blood lab interpretati on Abnorm al Not Available Not Available 14:03:41 10/17/19 25 10/16/2024 CMP, serum or plasm a glucose, qn [mass/volume ], serum or plasma 293 text: 70 - 99 mg/dL high Not Available Not Available 11/04/2024 14:03:41 10/17/19 25 10/16/2024 CMP, serum or plasm a BUN (blood urea nitrogen), serum or plasma 41 text: 7 - 18 mg/dL high Not Available Not Available 11/04/2024 14:03:41 10/17/1910/16/2024 CMP, serum or plasm a creatinine, serum or plasma 13.3 text: 0.55 - 1.02 mg/dL critical high NOT SAUCEDA D PER CRITI BERTRAND VALUE POLIC Y Not Available Not Available 11/04/2024 14:03:41 10/17/1910/16/2024 CMP, serum or plasm a sodium, serum or plasma 131 text: 136 - 145 mmol/L low Not Available Not Available 11/04/2024 14:03:41 10/17/1910/16/2024 CMP, serum or plasm a potassium, serum or plasma 3.7 text: 3.5 - 5.1 mmol/L Not Available Not Available 11/04/2024 14:03:41 10/17/1910/16/2024 CMP, serum or plasm a chloride, serum or plasma 96 text: 97 - 115 mmol/L low Not Available Not Available 11/04/2024 14:03:41 10/17/1910/16/2024 CMP, serum or plasm a CO2, (carbon dioxide), total, serum or plasma 26.3 text: 21 - 32 mmol/L Not Available Not Available 11/04/2024 14:03:41 10/17/1910/16/2024 CMP, serum or plasm a calcium, serum or plasma 8.6 text: 8.5 - 10.1 mg/dL Not Available Not Available 11/04/2024 14:03:41 10/17/1910/16/2024 CMP, serum or plasm a bilirubin, total, serum or plasma 0.4 text: 0.2 - 1.2 mg/dL THIS ASSAY IS NOT RECOM SILVINA D FOR PATIE NTS UNDER GOING TREAT MENT WITH ELTRO MBOPA G DUE TO THE POTEN TIAL FOR FALSE LY ELEVA GRAEME RESUL TS. Not Available Not Available 11/04/2024 14:03:41 10/17/1910/16/2024 CMP, serum or plasm a protein, total, serum 6.8 text: 6.4 - 8.2 g/dL Not Available Not Available 11/04/2024 14:03:41 10/17/1910/16/2024 CMP, serum or plasm a albumin, serum or plasma 1.4 text: 3.4 - 5.0 g/dL low Not Available Not Available 11/04/2024 14:03:41 10/17/19 25 10/16/2024 CMP, serum or plasm a AST/SGOT (aspartate aminotransfe rase), serum or plasma 13 U/L low: 15U/Lh igh: 37U/L low Not Available Not Available 11/04/2024 14:03:41 10/17/19 25 10/16/2024 CMP, serum or plasm a ALT (alanine aminotransfe rase), serum or plasma 23 U/L low: 14U/Lh igh: 55U/L Not Available Not Available 11/04/2024 14:03:41 10/17/19 25 10/16/2024 CMP, serum or plasm a alkaline phosphatase, serum or plasma 207 U/L low: 50U/Lh igh: 136U/L high Not Available Not Available 11/04/2024 14:03:41 10/17/19 25 10/16/2024 CMP, serum or plasm a anion gap, serum or plasma 8.7 text: 2 - 10 mmol/L Not Available Not Available 11/04/2024 14:03:41 10/17/19 25 10/16/2024 CMP, serum or plasm a BUN/creatini ne, ratio, serum 3.1 low: 6high: 26 low Not Available Not Available 11/04/2024 14:03:41 10/17/19 25 10/16/2024 CMP, serum or plasm a albumin/glob ulin, ratio, serum 0.3 text: 1.0 - 2.0 ratio low Not Available Not Available 11/04/2024 14:03:41 10/17/19 25 10/16/2024 CMP, serum or plasm a glomerular filtration rate/1.73 sq M predicted, qn, creatinine based formula (CKD-epi 2020), serum or plasma or blood 3 text: >90 mL/min /1.73 M2 low NOTE: eGFR is not calcu lated for patie nts <18 years of age or gende r unkno wn. This is an estim ated GFR calcu latio n using the new CKD EPI creat inine equat ion witho ut race and so does not requi re a corre ction facto r for race. This estim ated GFR shoul d not be used for calcu latin g drug doses . Not Available Not Available 11/04/2024 14:03:41 10/17/19 25 10/16/2024 CMP, serum or plasm a lab interpretati on Abnorm al Not Available Not Available 14:03:41 10/17/19 25 10/16/2024 CBC w/ auto diff WBC, auto, blood 14.73 text: 4.5 - 11.0 x10'3/ uL high Not Available Not Available 11/04/2024 14:03:40 10/17/19 25 10/16/2024 CBC w/ auto diff RBC count, blood 3 text: 4.20 - 5.40 x10'6/ uL low Not Available Not Available 11/04/2024 14:03:40 10/17/19 25 10/16/2024 CBC w/ auto diff hemoglobin (Hb), blood 7.6 text: 12.0 - 16.0 g/dL low Not Available Not Available 11/04/2024 14:03:40 10/17/19 25 10/16/2024 CBC w/ auto diff hematocrit, blood 24.3 % low: 38%hig h: 48% low Not Available Not Available 11/04/2024 14:03:40 10/17/19 25 10/16/2024 CBC w/ auto diff MCV, qn (obs) 81 text: 81.0 - 99.0 fL Not Available Not Available 11/04/2024 14:03:40 10/17/19 25 10/16/2024 CBC w/ auto diff MCH, qn (obs) 25.3 pg low: 27pghi gh: 31pg low Not Available Not Available 11/04/2024 14:03:40 10/17/19 25 10/16/2024 CBC w/ auto diff mean corpuscular hemoglobin concentratio n, qn, RBC 31.3 text: 32.0 - 36.0 g/dL low Not Available Not Available 11/04/2024 14:03:40 10/17/19 25 10/16/2024 CBC w/ auto diff RDW 15.8 % low: 11.5%h igh: 14.5% high Not Available Not Available 11/04/2024 14:03:40 10/17/19 25 10/16/2024 CBC w/ auto diff platelet count, blood 398 text: 130 - 400 x10'3/ uL Not Available Not Available 11/04/2024 14:03:40 10/17/19 25 10/16/2024 CBC w/ auto diff platelet mean volume, qn, blood (obs) 9.4 text: 9.3 - 12.2 fL Not Available Not Available 11/04/2024 14:03:40 10/17/19 25 10/16/2024 CBC w/ auto diff differential cell count method, blood (obs) AUTOMA GRAEME DIFFER ENTIAL Not Available Not Available 14:03:40 10/17/19 25 10/16/2024 CBC w/ auto diff neutrophils/ 100 leukocytes, automated, blood (obs) 73.3 % Not Available Not Available 11/04/2024 14:03:40 10/17/19 25 10/16/2024 CBC w/ auto diff lymphocytes/ 100 leukocytes, automated, blood (obs) 15.1 % Not Available Not Available 11/04/2024 14:03:40 10/17/19 25 10/16/2024 CBC w/ auto diff monocytes/10 0 leukocytes, automated, blood (obs) 7.7 % Not Available Not Available 11/04/2024 14:03:40 10/17/19 25 10/16/2024 CBC w/ auto diff eosinophils/ 100 leukocytes, automated, blood (obs) 2.4 % Not Available Not Available 11/04/2024 14:03:40 10/17/19 25 10/16/2024 CBC w/ auto diff basophils/10 0 leukocytes, automated, blood (obs) 0.5 % Not Available Not Available 11/04/2024 14:03:40 10/17/19 25 10/16/2024 CBC w/ auto diff immature granulocytes /100 leukocytes, automated, blood (obs) 1 % Not Available Not Available 11/04/2024 14:03:40 10/17/19 25 10/16/2024 CBC w/ auto diff neutrophils, count, blood (obs) 10.78 text: 1.80 - 7.70 x10'3/ uL high Not Available Not Available 11/04/2024 14:03:40 10/17/19 25 10/16/2024 CBC w/ auto diff lymphocytes, blood (obs) 2.23 text: 1.00 - 4.80 x10'3/ uL Not Available Not Available 11/04/2024 14:03:40 10/17/19 25 10/16/2024 CBC w/ auto diff monocytes, count, blood (obs) 1.14 text: 0.24 - 0.86 x10'3/ uL high Not Available Not Available 11/04/2024 14:03:40 10/17/19 25 10/16/2024 CBC w/ auto diff eosinophils, quant, blood 0.35 text: 0.04 - 0.36 x10'3/ uL Not Available Not Available 11/04/2024 14:03:40 10/17/19 25 10/16/2024 CBC w/ auto diff basophils, count, blood (obs) 0.08 text: 0.01 - 0.08 x10'3/ uL Not Available Not Available 11/04/2024 14:03:40 10/17/19 25 10/16/2024 CBC w/ auto diff immature granulocytes count, blood 0.15 text: 0.00 - 0.49 x10'3/ uL Not Available Not Available 11/04/2024 14:03:40 10/17/19 25 10/16/2024 CBC w/ auto diff lab interpretati on Abnorm al Not Available Not Available 14:03:40 10/17/19 25 10/16/2024 gluco se, QN, test strip , auto, blood glucose, qn, test strip, auto, blood 314 mg/dL low: 70mg/d Lhigh: 99mg/d L high Not Available Not Available 11/04/2024 14:03:40 10/17/19 25 10/16/2024 gluco se, QN, test strip , auto, blood lab interpretati on Abnorm al Not Available Not Available 14:03:40 10/18/19 25 10/17/2024 gluco se, QN, test strip , auto, blood glucose, qn, test strip, auto, blood 146 mg/dL low: 70mg/d Lhigh: 99mg/d L high Not Available Not Available 11/04/2024 14:03:42 10/18/19 25 10/17/2024 gluco se, QN, test strip , auto, blood lab interpretati on Abnorm al Not Available Not Available 14:03:42 10/18/19 25 10/17/2024 gluco se, QN, test strip , auto, blood glucose, qn, test strip, auto, blood 117 mg/dL low: 70mg/d Lhigh: 99mg/d L high Not Available Not Available 11/04/2024 14:03:42 10/18/19 25 10/17/2024 gluco se, QN, test strip , auto, blood lab interpretati on Abnorm al Not Available Not Available 14:03:42 10/18/19 25 10/17/2024 nomi ia, quant , plasm a ammonia, quant, plasma 34 text: 11 - 32 umol/L high Not Available Not Available 11/04/2024 14:03:41 10/18/19 25 10/17/2024 nomi ia, quant , plasm a lab interpretati on Abnorm al Not Available Not Available 14:03:41 10/18/1910/17/2024 gluco se, QN, test strip , auto, blood glucose, qn, test strip, auto, blood 184 mg/dL low: 70mg/d Lhigh: 99mg/d L high Not Available Not Available 11/04/2024 14:03:41 10/18/1910/17/2024 gluco se, QN, test strip , auto, blood lab interpretati on Abnorm al Not Available Not Available 14:03:41 10/18/19 25 10/17/2024 CMP, serum or plasm a glucose, qn [mass/volume ], serum or plasma 299 text: 70 - 99 mg/dL high Not Available Not Available 11/04/2024 14:03:41 10/18/19 25 10/17/2024 CMP, serum or plasm a BUN (blood urea nitrogen), serum or plasma 42 text: 7 - 18 mg/dL high Not Available Not Available 11/04/2024 14:03:41 10/18/19 10/17/2024 CMP, serum or plasm a creatinine, serum or plasma 13 text: 0.55 - 1.02 mg/dL critical high NOT SAUCEDA D PER CRIJACQUE BERTRAND VALUE POLIC Y Not Available Not Available 11/04/2024 14:03:41 10/18/1910/17/2024 CMP, serum or plasm a sodium, serum or plasma 131 text: 136 - 145 mmol/L low Not Available Not Available 11/04/2024 14:03:41 10/18/1910/17/2024 CMP, serum or plasm a potassium, serum or plasma 3.6 text: 3.5 - 5.1 mmol/L Not Available Not Available 11/04/2024 14:03:41 10/18/1910/17/2024 CMP, serum or plasm a chloride, serum or plasma 94 text: 97 - 115 mmol/L low Not Available Not Available 11/04/2024 14:03:41 10/18/1910/17/2024 CMP, serum or plasm a CO2, (carbon dioxide), total, serum or plasma 27.8 text: 21 - 32 mmol/L Not Available Not Available 11/04/2024 14:03:41 10/18/1910/17/2024 CMP, serum or plasm a calcium, serum or plasma 8.4 text: 8.5 - 10.1 mg/dL low Not Available Not Available 11/04/2024 14:03:41 10/18/1910/17/2024 CMP, serum or plasm a bilirubin, total, serum or plasma 0.3 text: 0.2 - 1.2 mg/dL THIS ASSAY IS NOT RECOM SILVINA D FOR PATIE NTS UNDER GOING TREAT MENT WITH ELTRO MBOPA G DUE TO THE POTEN TIAL FOR FALSE LY ELEVA GRAEME RESUL TS. Not Available Not Available 11/04/2024 14:03:41 10/18/1910/17/2024 CMP, serum or plasm a protein, total, serum 6.2 text: 6.4 - 8.2 g/dL low Not Available Not Available 11/04/2024 14:03:41 10/18/1910/17/2024 CMP, serum or plasm a albumin, serum or plasma 1.2 text: 3.4 - 5.0 g/dL low Not Available Not Available 11/04/2024 14:03:41 10/18/19 25 10/17/2024 CMP, serum or plasm a AST/SGOT (aspartate aminotransfe rase), serum or plasma 11 U/L low: 15U/Lh igh: 37U/L low Not Available Not Available 11/04/2024 14:03:41 10/18/19 25 10/17/2024 CMP, serum or plasm a ALT (alanine aminotransfe rase), serum or plasma 19 U/L low: 14U/Lh igh: 55U/L Not Available Not Available 11/04/2024 14:03:41 10/18/19 25 10/17/2024 CMP, serum or plasm a alkaline phosphatase, serum or plasma 190 U/L low: 50U/Lh igh: 136U/L high Not Available Not Available 11/04/2024 14:03:41 10/18/19 25 10/17/2024 CMP, serum or plasm a anion gap, serum or plasma 9.2 text: 2 - 10 mmol/L Not Available Not Available 11/04/2024 14:03:41 10/18/19 25 10/17/2024 CMP, serum or plasm a BUN/creatini ne, ratio, serum 3.2 low: 6high: 26 low Not Available Not Available 11/04/2024 14:03:41 10/18/19 25 10/17/2024 CMP, serum or plasm a albumin/glob ulin, ratio, serum 0.2 text: 1.0 - 2.0 ratio low Not Available Not Available 11/04/2024 14:03:41 10/18/19 25 10/17/2024 CMP, serum or plasm a glomerular filtration rate/1.73 sq M predicted, qn, creatinine based formula (CKD-epi 2020), serum or plasma or blood 3 text: >90 mL/min /1.73 M2 low NOTE: eGFR is not calcu lated for patie nts <18 years of age or gende r unkno wn. This is an estim ated GFR calcu latio n using the new CKD EPI creat inine equat ion witho ut race and so does not requi re a corre ction facto r for race. This estim ated GFR shoul d not be used for calcu latin g drug doses . Not Available Not Available 11/04/2024 14:03:41 10/18/1910/17/2024 CMP, serum or plasm a lab interpretati on Abnorm al Not Available Not Available 14:03:41 10/18/1910/17/2024 CBC w/ auto diff WBC, auto, blood 18.59 text: 4.5 - 11.0 x10'3/ uL high Not Available Not Available 11/04/2024 14:03:41 10/18/19 25 10/17/2024 CBC w/ auto diff RBC count, blood 2.93 text: 4.20 - 5.40 x10'6/ uL low Not Available Not Available 11/04/2024 14:03:41 10/18/1910/17/2024 CBC w/ auto diff hemoglobin (Hb), blood 7.3 text: 12.0 - 16.0 g/dL low Not Available Not Available 11/04/2024 14:03:41 10/18/1910/17/2024 CBC w/ auto diff hematocrit, blood 23.9 % low: 38%hig h: 48% low Not Available Not Available 11/04/2024 14:03:41 10/18/1910/17/2024 CBC w/ auto diff MCV, qn (obs) 81.6 text: 81.0 - 99.0 fL Not Available Not Available 11/04/2024 14:03:41 10/18/1910/17/2024 CBC w/ auto diff MCH, qn (obs) 24.9 pg low: 27pghi gh: 31pg low Not Available Not Available 11/04/2024 14:03:41 10/18/1910/17/2024 CBC w/ auto diff mean corpuscular hemoglobin concentratio n, qn, RBC 30.5 text: 32.0 - 36.0 g/dL low Not Available Not Available 11/04/2024 14:03:41 10/18/1910/17/2024 CBC w/ auto diff RDW 15.5 % low: 11.5%h igh: 14.5% high Not Available Not Available 11/04/2024 14:03:41 10/18/1910/17/2024 CBC w/ auto diff platelet count, blood 403 text: 130 - 400 x10'3/ uL high Not Available Not Available 11/04/2024 14:03:41 10/18/1910/17/2024 CBC w/ auto diff platelet mean volume, qn, blood (obs) 9.9 text: 9.3 - 12.2 fL Not Available Not Available 11/04/2024 14:03:41 10/18/1910/17/2024 CBC w/ auto diff differential cell count method, blood (obs) MANUAL DIFFER ENTIAL Not Available Not Available 14:03:41 10/18/1910/17/2024 CBC w/ auto diff segmented neutrophils/ 100 leukocytes, manual, blood (obs) 80 % Not Available Not Available 11/04/2024 14:03:41 10/18/1910/17/2024 CBC w/ auto diff lymphocytes/ 100 leukocytes, manual, blood (obs) 15 % Not Available Not Available 11/04/2024 14:03:41 10/18/1910/17/2024 CBC w/ auto diff monocytes/10 0 leukocytes, manual, blood (obs) 4 % Not Available Not Available 11/04/2024 14:03:41 10/18/1910/17/2024 CBC w/ auto diff eosinophils/ 100 leukocytes, manual, blood (obs) 1 % Not Available Not Available 11/04/2024 14:03:41 10/18/1910/17/2024 CBC w/ auto diff neutrophils, count, blood (obs) 14.87 text: 1.80 - 7.70 x10'3/ uL high Not Available Not Available 11/04/2024 14:03:41 10/18/1910/17/2024 CBC w/ auto diff lymphocytes, blood (obs) 2.79 text: 1.00 - 4.80 x10'3/ uL Not Available Not Available 11/04/2024 14:03:41 10/18/1910/17/2024 CBC w/ auto diff monocytes, count, blood (obs) 0.74 text: 0.24 - 0.86 x10'3/ uL Not Available Not Available 11/04/2024 14:03:41 10/18/19 25 10/17/2024 CBC w/ auto diff eosinophils, quant, blood 0.19 text: 0.04 - 0.36 x10'3/ uL Not Available Not Available 11/04/2024 14:03:41 10/18/19 25 10/17/2024 CBC w/ auto diff erythrocytes , ql, automated, blood (obs) RBC MORPHO LOGY APPEAR S NORMAL . SLIDE REVIEW ED. Not Available Not Available 14:03:41 10/18/19 25 10/17/2024 CBC w/ auto diff platelets, auto, blood INCREA SED Not Available Not Available 14:03:41 10/18/19 25 10/17/2024 CBC w/ auto diff lab interpretati on Abnorm al Not Available Not Available 14:03:41 10/18/19 25 10/17/2024 gluco se, QN, test strip , auto, blood glucose, qn, test strip, auto, blood 317 mg/dL low: 70mg/d Lhigh: 99mg/d L high Not Available Not Available 11/04/2024 14:03:41 10/18/19 25 10/17/2024 gluco se, QN, test strip , auto, blood lab interpretati on Abnorm al Not Available Not Available 14:03:41 10/19/19 25 10/23/2024 cultu re, urine specimen source identified (obs) URINE CLEAN CATCH Not Available Not Available 14:03:43 10/19/1910/23/2024 cultu re, urine special requests NO SPECIA L REQUES T Not Available Not Available 14:03:43 10/19/19 25 10/23/2024 cultu re, urine culture, bacterial >100,0 00 COL/ML VANCOM YCIN RESIST ANT ENTERO COCCUS FAECIU M FOLLOW ISOLAT ION PROTOC OL. abnormal Not Available Not Available 14:03:43 10/19/19 25 10/23/2024 cultu re, urine culture, bacterial VRE CALLED TO AND REPEAT ED BACK BY AMISHA WALKER RN 5 AT 1412. DA Not Available Not Available 14:03:43 10/19/19 25 10/23/2024 cultu re, urine lab interpretati on Abnorm al Not Available Not Available 14:03:43 10/19/19 25 10/18/2024 urina lysis , dipst ick, refle x micro collection method, unspecified specimen (obs) URINE CLEAN CATCH Not Available Not Available 14:03:43 10/19/19 25 10/18/2024 urina lysis , dipst ick, refle x micro color, urine (obs) LIGHT YELLOW Not Available Not Available 14:03:43 10/19/19 25 10/18/2024 urina lysis , dipst ick, refle x micro clarity of urine (obs) TURBID Not Available Not Available 11/04/2024 14:03:43 10/19/19 25 10/18/2024 urina lysis , dipst ick, refle x micro specific gravity, urine 1.019 low: 1.001h igh: 1.03 Not Available Not Available 11/04/2024 14:03:43 10/19/19 25 10/18/2024 urina lysis , dipst ick, refle x micro pH, urine 7 low: 5high: 9 Not Available Not Available 11/04/2024 14:03:43 10/19/19 25 10/18/2024 urina lysis , dipst ick, refle x micro leukocytes, count, test strip, urine (obs) 75 text: negati ve abnormal Not Available Not Available 11/04/2024 14:03:43 10/19/19 25 10/18/2024 urina lysis , dipst ick, refle x micro nitrite, qual, urine NEGATI VE text: negati ve Not Available Not Available 11/04/2024 14:03:43 10/19/19 25 10/18/2024 urina lysis , dipst ick, refle x micro protein random (U) 300 text: <30 mg/dL high Not Available Not Available 11/04/2024 14:03:43 10/19/19 25 10/18/2024 urina lysis , dipst ick, refle x micro glucose, qn [mass/volume ], urine 300 text: normal mg/dL abnormal Not Available Not Available 11/04/2024 14:03:43 10/19/19 25 10/18/2024 urina lysis , dipst ick, refle x micro ketones, qn, test strip, urine NEGATI VE text: negati ve mg/dL Not Available Not Available 11/04/2024 14:03:43 10/19/19 25 10/18/2024 urina lysis , dipst ick, refle x micro urobilinogen , qn, test strip, urine NORMAL text: normal mg/dL Not Available Not Available 11/04/2024 14:03:43 10/19/19 25 10/18/2024 urina lysis , dipst ick, refle x micro bilirubin, total, quant, urine NEGATI VE text: negati ve mg/dL Not Available Not Available 11/04/2024 14:03:43 10/19/19 25 10/18/2024 urina lysis , dipst ick, refle x micro erythrocytes , count, automated test strip, urine (obs) 1+ text: negati ve abnormal Not Available Not Available 11/04/2024 14:03:43 10/19/19 25 10/18/2024 urina lysis , dipst ick, refle x micro mucus, count, miscroscopy low power field, urine sediment (obs) RARE text: /lpf Not Available Not Available 11/04/2024 14:03:43 10/19/19 25 10/18/2024 urina lysis , dipst ick, refle x micro leukocytes, count, microscopy high power field, urine sediment (obs) 24 text: <6 /hpf high Not Available Not Available 11/04/2024 14:03:43 10/19/19 25 10/18/2024 urina lysis , dipst ick, refle x micro leukocyte clumps, ql, automated, urine (obs) PRESEN T Not Available Not Available 14:03:43 10/19/19 25 10/18/2024 urina lysis , dipst ick, refle x micro erythrocytes , count, microscopy high power field, urine sediment (obs) <1 text: <6 /hpf Not Available Not Available 11/04/2024 14:03:43 10/19/19 25 10/18/2024 urina lysis , dipst ick, refle x micro bacteria, count, microscopy high power field, urine sediment (obs) RARE text: none /hpf abnormal Not Available Not Available 11/04/2024 14:03:43 10/19/19 25 10/18/2024 urina lysis , dipst ick, refle x micro epithelial cells, squamous, count, microscopy high power field, urine sediment (obs) MANY text: /hpf Not Available Not Available 11/04/2024 14:03:43 10/19/19 25 10/18/2024 urina lysis , dipst ick, refle x micro lab interpretati on Abnorm al Not Available Not Available 14:03:43 10/19/19 25 10/18/2024 gluco se, QN, test strip , auto, blood glucose, qn, test strip, auto, blood 191 mg/dL low: 70mg/d Lhigh: 99mg/d L high Not Available Not Available 11/04/2024 14:03:43 10/19/19 25 10/18/2024 gluco se, QN, test strip , auto, blood lab interpretati on Abnorm al Not Available Not Available 14:03:43 10/19/19 25 10/18/2024 gluco se, QN, test strip , auto, blood glucose, qn, test strip, auto, blood 208 mg/dL low: 70mg/d Lhigh: 99mg/d L high Not Available Not Available 11/04/2024 14:03:43 10/19/19 25 10/18/2024 gluco se, QN, test strip , auto, blood lab interpretati on Abnorm al Not Available Not Available 14:03:43 10/19/19 25 10/21/2024 throm bin clott ing time, plasm a thrombin clotting time, plasma 19 text: 13 - 19 sec Test Perfo rmed by [place], [facility], [address] , [place], [place] Scott Rashid M.D., Ph.D. , [facility] [phone], CLIA [id number] Not Available Not Available 11/04/2024 14:03:43 10/19/1910/21/2024 DRVVT CONFI RMATI ON drvvt confirmation Negati ve text: negati ve Test Perfo rmed by [place], [facility], [address] [address] [place], [place] Scott Rashid M.D., Ph.D. , [facility] atori es , CLIA [id number] Not Available Not Available 11/04/2024 14:03:43 10/19/1910/21/2024 lupus antic oagul ant neutr gage tion hexag onal phase phosp holip id, plate let poor plasm a lupus anticoagulan t neutralizati on hexagonal phase phospholipid , platelet poor plasma POSITI VE text: negati ve abnormal Test Perfo rmed by [place], [facility], [address] [address] [facility] [place], [place] Scott Rashid M.D., Ph.D. , [facility] , CLIA [id number] Not Available Not Available 11/04/2024 14:03:43 10/19/1910/21/2024 lupus antic oagul ant neutr gage tion hexag onal phase phosp holip id, plate let poor plasm a lab interpretati on Abnorm al Not Available Not Available 14:03:43 10/19/1910/21/2024 coagu latio n facto r X activ ity actua l/nor mal, coagu latio n assay , plate let poor plasm a coagulation factor X activity actual/kimberly l, coagulation assay, platelet poor plasma 114 text: 70 - 150 % normal Test Perfo rmed by [place], [facility], [address] [address] [facility] [place], [place] Scott Rashid M.D., Ph.D. , [facility] atori es , CLIA [id number] Not Available Not Available 11/04/2024 14:03:43 10/19/19 25 10/20/2024 antit hromb in activ ity, plasm a antithrombin activity, plasma 89 text: 80 - 135 % normal Test Perfo rmed by [employer] [place], [facility], [address] [facility] [place] [place] Patjacques Rashid M.D., Ph.D. , [facility] atori es , CLIA [id number] Not Available Not Available 11/04/2024 14:03:43 10/19/19 25 10/20/2024 prote in S activ ity, plasm a protein S activity, plasma 58 text: 60 - 140 % normal low Decre ased level s of Prote in S activ ity may be found in patie nts with hered itary defic iency , warfa rin thera py, vitam in K defic iency , liver disea se, DIC, or recen t throm bosis as well as after surge ry. In addit ion, it may be physi ologi c in pregn beatris. Test Perfo rmed by [place], [facility], [address] [facility] [place] [place] Scott Rashid M.D., Ph.D. , [facility] atori es , CLIA [id number] Not Available Not Available 11/04/2024 14:03:43 10/19/19 25 10/20/2024 prote in S activ ity, plasm a lab interpretati on Abnorm al Not Available Not Available 14:03:43 10/19/19 25 10/20/2024 prote in C activ ity, plasm a protein C activity, plasma 137 text: 70 - 180 % normal Test Perfo rmed by [place], [facility], [address] , [place], [place] Scott Rashid M.D., Ph.D. , [facility] [phone], CLIA [id number] Not Available Not Available 11/04/2024 14:03:43 10/19/19 25 10/18/2024 cortez tin, serum or plasm a ferritin, serum or plasma 2302.9 text: 8.0 - 388.0 NG/mL high Not Available Not Available 11/04/2024 14:03:42 10/19/19 25 10/18/2024 cortez tin, serum or plasm a lab interpretati on Abnorm al Not Available Not Available 14:03:42 10/19/19 25 10/19/2024 JAYA (anti nucle ar antib odies ) titer + patte rn, ifa, serum JAYA (antinuclear antibodies) screen, serum 0.3 NEGAT KAMINI: <0.7 RATIO JAYA PROFI LE AND TITER NOT PERFO RMED THE JAYA SCREE N TESTS FOR THE FOLLO WING ANTIB ODIES BY EIA: SSA1 (RO), SSB1 (LA), PETERS , SCL70 , JO1, CENTR OMERE , INSPECTOR ELECTROMECHANICAL HISTO NE MUST BE ORDER ED SEPAR ATELY Not Available Not Available 11/04/2024 14:03:42 10/19/19 25 10/19/2024 JAYA (anti nucle ar antib odies ) titer + patte rn, ifa, serum DNA double strand Ab, ql, serum 1.7 text: IU/mL NEGAT KAMINI: <10 IU/mL EQUIV OCAL: 10 to 15 IU/mL POSIT KAMINI: >15 IU/mL THIS QUANT ITATI VE ASSAY IS CALIB RATED TO THE WORLD HEALT H ORGAN IZATI ON'S WO/80 STAND MOMO. THE LEVEL OF dsDNA AUTOA NTIBO DY GERER ALLY CORRE LATES WITH THE LEVEL OF DISEA SE ACTIV ITY IN SYSTE ESTEVAN LUPUS ERYTH ROSS US Not Available Not Available 11/04/2024 14:03:42 10/19/19 25 10/18/2024 phosp horus , serum or plasm a phosphorus, serum or plasma 5.8 text: 2.5 - 4.9 mg/dL high Not Available Not Available 11/04/2024 14:03:42 10/19/1910/18/2024 phosp horus , serum or plasm a lab interpretati on Abnorm al Not Available Not Available 14:03:42 10/19/19 25 10/23/2024 cultu re, blood specimen source identified (obs) BLOOD Not Available Not Available 10/24 14:03:42 10/19/19 25 10/23/2024 cultu re, blood special requests NO SPECIA L REQUES T Not Available Not Available 14:03:42 10/19/1910/23/2024 cultu re, blood culture, bacterial NO GROWTH 5 DAYS Not Available Not Available 14:03:42 10/19/1910/18/2024 CMP, serum or plasm a glucose, qn [mass/volume ], serum or plasma 221 text: 70 - 99 mg/dL high Not Available Not Available 11/04/2024 14:03:42 10/19/1910/18/2024 CMP, serum or plasm a BUN (blood urea nitrogen), serum or plasma 44 text: 7 - 18 mg/dL high Not Available Not Available 11/04/2024 14:03:42 10/19/1910/18/2024 CMP, serum or plasm a creatinine, serum or plasma 13.4 text: 0.55 - 1.02 mg/dL critical high NOT SAUCEDA D PER CRITI BERTRAND VALUE POLIC Y Not Available Not Available 11/04/2024 14:03:42 10/19/1910/18/2024 CMP, serum or plasm a sodium, serum or plasma 130 text: 136 - 145 mmol/L low Not Available Not Available 11/04/2024 14:03:42 10/19/1910/18/2024 CMP, serum or plasm a potassium, serum or plasma 3.8 text: 3.5 - 5.1 mmol/L Not Available Not Available 11/04/2024 14:03:42 10/19/19 25 10/18/2024 CMP, serum or plasm a chloride, serum or plasma 92 text: 97 - 115 mmol/L low Not Available Not Available 11/04/2024 14:03:42 10/19/19 25 10/18/2024 CMP, serum or plasm a CO2, (carbon dioxide), total, serum or plasma 26.7 text: 21 - 32 mmol/L Not Available Not Available 11/04/2024 14:03:42 10/19/19 25 10/18/2024 CMP, serum or plasm a calcium, serum or plasma 9 text: 8.5 - 10.1 mg/dL Not Available Not Available 11/04/2024 14:03:42 10/19/19 25 10/18/2024 CMP, serum or plasm a bilirubin, total, serum or plasma 0.5 text: 0.2 - 1.2 mg/dL THIS ASSAY IS NOT RECOM SILVINA D FOR PATIE NTS UNDER GOING TREAT MENT WITH ELTRO MBOPA G DUE TO THE POTEN TIAL FOR FALSE LY ELEVA GRAEME RESUL TS. Not Available Not Available 11/04/2024 14:03:42 10/19/19 25 10/18/2024 CMP, serum or plasm a protein, total, serum 7.3 text: 6.4 - 8.2 g/dL Not Available Not Available 11/04/2024 14:03:42 10/19/19 25 10/18/2024 CMP, serum or plasm a albumin, serum or plasma 1.4 text: 3.4 - 5.0 g/dL low Not Available Not Available 11/04/2024 14:03:42 10/19/19 25 10/18/2024 CMP, serum or plasm a AST/SGOT (aspartate aminotransfe rase), serum or plasma 18 U/L low: 15U/Lh igh: 37U/L Not Available Not Available 11/04/2024 14:03:42 10/19/19 25 10/18/2024 CMP, serum or plasm a ALT (alanine aminotransfe rase), serum or plasma 22 U/L low: 14U/Lh igh: 55U/L Not Available Not Available 11/04/2024 14:03:42 10/19/19 25 10/18/2024 CMP, serum or plasm a alkaline phosphatase, serum or plasma 214 U/L low: 50U/Lh igh: 136U/L high Not Available Not Available 11/04/2024 14:03:42 10/19/19 25 10/18/2024 CMP, serum or plasm a anion gap, serum or plasma 11.3 text: 2 - 10 mmol/L high Not Available Not Available 11/04/2024 14:03:42 10/19/19 25 10/18/2024 CMP, serum or plasm a BUN/creatini ne, ratio, serum 3.3 low: 6high: 26 low Not Available Not Available 11/04/2024 14:03:42 10/19/19 25 10/18/2024 CMP, serum or plasm a albumin/glob ulin, ratio, serum 0.2 text: 1.0 - 2.0 ratio low Not Available Not Available 11/04/2024 14:03:42 10/19/1910/18/2024 CMP, serum or plasm a glomerular filtration rate/1.73 sq M predicted, qn, creatinine based formula (CKD-epi 2020), serum or plasma or blood 3 text: >90 mL/min /1.73 M2 low NOTE: eGFR is not calcu lated for patie nts <18 years of age or gende r unkno wn. This is an estim ated GFR calcu latio n using the new CKD EPI creat inine equat ion witho ut race and so does not requi re a corre ction facto r for race. This estim ated GFR shoul d not be used for calcu latin g drug doses . Not Available Not Available 11/04/2024 14:03:42 10/19/1910/18/2024 CMP, serum or plasm a lab interpretati on Abnorm al Not Available Not Available 14:03:42 10/19/19 25 10/18/2024 CBC w/ auto diff WBC, auto, blood 22.48 text: 4.5 - 11.0 x10'3/ uL high Not Available Not Available 11/04/2024 14:03:42 10/19/19 25 10/18/2024 CBC w/ auto diff RBC count, blood 3.02 text: 4.20 - 5.40 x10'6/ uL low Not Available Not Available 11/04/2024 14:03:42 10/19/19 25 10/18/2024 CBC w/ auto diff hemoglobin (Hb), blood 7.6 text: 12.0 - 16.0 g/dL low Not Available Not Available 11/04/2024 14:03:42 10/19/19 25 10/18/2024 CBC w/ auto diff hematocrit, blood 24.7 % low: 38%hig h: 48% low Not Available Not Available 11/04/2024 14:03:42 10/19/19 25 10/18/2024 CBC w/ auto diff MCV, qn (obs) 81.8 text: 81.0 - 99.0 fL Not Available Not Available 11/04/2024 14:03:42 10/19/19 25 10/18/2024 CBC w/ auto diff MCH, qn (obs) 25.2 pg low: 27pghi gh: 31pg low Not Available Not Available 11/04/2024 14:03:42 10/19/19 25 10/18/2024 CBC w/ auto diff mean corpuscular hemoglobin concentratio n, qn, RBC 30.8 text: 32.0 - 36.0 g/dL low Not Available Not Available 11/04/2024 14:03:42 10/19/19 25 10/18/2024 CBC w/ auto diff RDW 15.7 % low: 11.5%h igh: 14.5% high Not Available Not Available 11/04/2024 14:03:42 10/19/19 25 10/18/2024 CBC w/ auto diff platelet count, blood 475 text: 130 - 400 x10'3/ uL high Not Available Not Available 11/04/2024 14:03:42 10/19/19 25 10/18/2024 CBC w/ auto diff platelet mean volume, qn, blood (obs) 9.7 text: 9.3 - 12.2 fL Not Available Not Available 11/04/2024 14:03:42 10/19/19 25 10/18/2024 CBC w/ auto diff differential cell count method, blood (obs) MANUAL DIFFER ENTIAL Not Available Not Available 14:03:42 10/19/19 25 10/18/2024 CBC w/ auto diff segmented neutrophils/ 100 leukocytes, manual, blood (obs) 82 % Not Available Not Available 11/04/2024 14:03:42 10/19/19 25 10/18/2024 CBC w/ auto diff lymphocytes/ 100 leukocytes, manual, blood (obs) 10 % Not Available Not Available 11/04/2024 14:03:42 10/19/19 25 10/18/2024 CBC w/ auto diff monocytes/10 0 leukocytes, manual, blood (obs) 5 % Not Available Not Available 11/04/2024 14:03:42 10/19/19 25 10/18/2024 CBC w/ auto diff eosinophils/ 100 leukocytes, manual, blood (obs) 3 % Not Available Not Available 11/04/2024 14:03:42 10/19/19 25 10/18/2024 CBC w/ auto diff neutrophils, count, blood (obs) 18.43 text: 1.80 - 7.70 x10'3/ uL high Not Available Not Available 11/04/2024 14:03:42 10/19/19 25 10/18/2024 CBC w/ auto diff lymphocytes, blood (obs) 2.25 text: 1.00 - 4.80 x10'3/ uL Not Available Not Available 11/04/2024 14:03:42 10/19/19 25 10/18/2024 CBC w/ auto diff monocytes, count, blood (obs) 1.12 text: 0.24 - 0.86 x10'3/ uL high Not Available Not Available 11/04/2024 14:03:42 10/19/19 25 10/18/2024 CBC w/ auto diff eosinophils, quant, blood 0.67 text: 0.04 - 0.36 x10'3/ uL high Not Available Not Available 11/04/2024 14:03:42 10/19/19 25 10/18/2024 CBC w/ auto diff erythrocytes , ql, automated, blood (obs) RBC MORPHO LOGY APPEAR S NORMAL . SLIDE REVIEW ED. Not Available Not Available 14:03:42 10/19/19 25 10/18/2024 CBC w/ auto diff platelets, auto, blood INCREA SED Not Available Not Available 14:03:42 10/19/19 25 10/18/2024 CBC w/ auto diff lab interpretati on Abnorm al Not Available Not Available 14:03:42 10/19/19 25 10/18/2024 gluco se, QN, test strip , auto, blood glucose, qn, test strip, auto, blood 265 mg/dL low: 70mg/d Lhigh: 99mg/d L high Not Available Not Available 11/04/2024 14:03:42 10/19/19 25 10/18/2024 gluco se, QN, test strip , auto, blood lab interpretati on Abnorm al Not Available Not Available 14:03:42 10/19/19 25 10/18/2024 gluco se, QN, test strip , auto, blood glucose, qn, test strip, auto, blood 297 mg/dL low: 70mg/d Lhigh: 99mg/d L high Not Available Not Available 11/04/2024 14:03:42 10/19/19 25 10/18/2024 gluco se, QN, test strip , auto, blood lab interpretati on Abnorm al Not Available Not Available 14:03:42 10/19/19 25 10/20/2024 patho logy study pathology study [facility] [address] [place] [address] Teleph one: [phone], extens ion [phone] Pathol ogy Report Periph eral Smear Report Name: MONI SMART en #: [id number] Age: [birth year] (Age: 44) Locati on: [id number] SG Sex: F Proced ure Date: Hospit al #: [id number] Date Receiv ed: Date Report ed: Provid er: MAXINE PAZ MD PHD MELL ARTHUR MD Source : [facility] eral blood Clinic al Histor y: Leukoc ytosis FINAL DIAGNO SIS: Perip eral blood, smear review : -Leuko cytosi s with absolu te neutro philia -Normo cytic anemia -Mild thromb ocytos is Diagno sis Commen t: The findin gs are nonspe cific but can be seen second felecia to infect ion or drug/m edicat ion effect , among others . Target cells can be seen in liver diseas e. Overal l, there is no overt morpho logic eviden ce of a myeloi d neopla sm or lympho prolif erativ e disord er in this sample . Elec tronic ally Signed Out YULISA MORLEY MD INTERP RETATI ON: Periph eral Blood Commen ts: Review of the periph eral blood smear demons trates a leukoc ytosis with absolu te neutro philia , monocy tosis, and eosino philia . Circul ating blasts are not identi fied. Smudge cells are presen t. There is a normoc ytic anemia with anisoc ytosis , hypoch romasi a, polych romasi a, target cells, and 1+ schist ocytes . There is a mild thromb ocytos is with predom inatel y unrema rkable morpho logy. This case was interp reted and signed out at [facility], [address] [place] [address]. Not Available Not Available 14:03:42 10/20/19 25 10/19/2024 SJS CYTOL OGY [facility] [address] [facility] [place] [place] [address] Telep karissa: [phone], exten [place] [id number] Patho logy Repor t Non-g yneco logic Cytol ogy Repor t Name: DOMINGA ZAMBRANO Speci men #: [id number] Age: [birth year] (Age: 44) Locat ion: SEOTE LEB Sex: F Proce dure Date: 2024 Hospi ozzie #: [id number] Date Recei wesley: 2024 Date Repor graeme: 2024 Provi abdirahman: YOSEF WEN MD MAXINE P JEROM E MD PHD [facility] e: PLEUR AL FLUID , LEFT Clini bertrand Histo ry: Bacte rial perit oniti s with bilat eral pleur al effus ions. FINAL DIAGN OSIS: Pleur al fluid , left, thora cente sis: - Satis facto ry for evalu ation - Rare atypi bertrand cells , see comme nt Diagn osis Comme nt: Noted withi n the pleur al fluid are rare atypi bertrand cells of uncer tain signi fican ce. Clini bertrand corre latio n is neces kassandra. Gross Descr iptio n: SPECI MEN RECEI WESLEY: 40 cc's of clear fluid SLIDE S PREPA RED: 1 ThinP rep slide (s); all slide s were micro scopi aaron exami nino by a patho logis t. STAIN S: Papan icola ou Initi al cytol ogic scree lexx, inter preta tion, and sign out were perfo rmed at [facility], [address] , [facility] [address] . Kristel ctron icall y Mayuri d Out TEJAL LYONS MD Not Available [facility] (Lab) [address] [facility], [place], [address], 10/21/2024 12:00:58 10/20/19 25 10/19/2024 SJS CYTOL OGY [facility]js [facility] [address] [facility] [place] [address] Telep karissa: , exten [place] 07 Patho logy Repor t Non-g yneco logic Cytol ogy Repor t Name: DOMINGA ZAMBRANO Speci men #: [id number] Age: [birth year] (Age: 44) Locat ion: [facility] Sex: F Proce dure Date: 2024 Hospi ozzie #: [id number] Date Recei wesley: 2024 Date Repor graeme: 025 Provi abdirahman: CANDIS Ji MD PHD Sour e: PLEUR AL FLUID , LEFT Clini bertrand Histo ry: Acute perit calderón perit oniti s, bilat eral pleur al effus ions. FINAL DIAGN OSIS: Pleur al fluid , left, [facility] cent[facility] sis: - Satis facto ry for evalu ation . - Negat kamini for audrey waldron . - Acute infla mmati on. Gross Descr iptio n: SPECI MEN RECEI WESLEY: 480 cc's of dark yello w fluid SLIDE S PREPA RED: 1 ThinP rep and cell block slide (s); all slide s were micro scopi aaron exami nino by a patho logis t. STAIN S: Papan icola ou, H & E Initi al cytol ogic scree lexx, inter preta tion, and sign out were [facility]fo [facility], [address] [place] [address], [place] [address] . Kristel ctron icall y Mayuri d Out XIANG JUAN MD Not Available [facility] (Lab) [address] [facility], [place], [address], 10/25/2024 13:26:17 10/20/1910/19/2024 gluco se, QN, test strip , auto, blood glucose, qn, test strip, auto, blood 141 mg/dL low: 70mg/d Lhigh: 99mg/d L high Not Available Not Available 11/04/2024 14:03:45 10/20/19 25 10/19/2024 gluco se, QN, test strip , auto, blood lab interpretati on Abnorm al Not Available Not Available 14:03:45 10/20/19 25 10/19/2024 gluco se, QN, test strip , auto, blood glucose, qn, test strip, auto, blood 203 mg/dL low: 70mg/d Lhigh: 99mg/d L high Not Available Not Available 11/04/2024 14:03:45 10/20/19 25 10/19/2024 gluco se, QN, test strip , auto, blood lab interpretati on Abnorm al Not Available Not Available 14:03:45 10/20/19 25 10/20/2024 amyla se, body fluid amylase, body fluid 18 text: units/ L REFER ENCE RANGE NOT ESTAB LISHE D FOR THIS BODY FLUID . Not Available Not Available 11/04/2024 14:03:45 10/20/19 25 10/20/2024 amyla se, body fluid specimen type (obs) PLEURA L FLUID Not Available Not Available 14:03:45 10/20/19 25 10/20/2024 LDH BODY FLUID lactate dehydrogenas e, activity, body fluid 749 text: units/ L REFER ENCE RANGE NOT ESTAB LISHE D FOR THIS BODY FLUID . INTER PRET RESUL TS WITH CAUTI ON. DUE TO STORA GE/TR ANSPO RT CONDI TIONS OF SPECI MEN PRIOR TO TESTI NG, THE RESUL TS MAY BE FALSE LY DECRE ASED. Not Available Not Available 11/04/2024 14:03:44 10/20/19 25 10/20/2024 LDH BODY FLUID specimen type (obs) PLEURA L FLUID Not Available Not Available 14:03:44 10/20/19 25 10/19/2024 ph, body fluid specimen type (obs) PLEURA L FLUID Not Available Not Available 14:03:44 10/20/19 25 10/19/2024 ph, body fluid pH, body fluid 8 The refer ence range and other metho d perfo rmanc e speci ficat ions have not been estab lishe d for this assay on body fluid s. The test resul t shoul d be integ rated into the clini bertrand trixie xt for inter preta tion and utili zed in maria dolores rison to blood sarah ntrat ions of the natalie te as appro priat e. Not Available Not Available 11/04/2024 14:03:44 10/20/19 25 10/24/2024 cultu re, aerob ic, body fluid specimen source identified (obs) PLEURA L FLUID Not Available Not Available 14:03:44 10/20/19 25 10/24/2024 cultu re, aerob ic, body fluid special requests NO SPECIA L REQUES T Not Available Not Available 14:03:44 10/20/19 25 10/24/2024 cultu re, aerob ic, body fluid gram stain MODERA TE WHITE BLOOD CELLS SEEN Not Available Not Available 14:03:44 10/20/19 25 10/24/2024 cultu re, aerob ic, body fluid gram stain NO ORGANI SMS SEEN Not Available Not Available 14:03:44 10/20/19 25 10/24/2024 cultu re, aerob ic, body fluid culture, bacterial NO GROWTH 5 DAYS Not Available Not Available 14:03:44 10/20/19 25 10/20/2024 prote in, total , body fluid protein, total, body fluid 3.4 text: g/dL REFER ENCE RANGE NOT ESTAB LISHE D FOR THIS BODY FLUID . Not Available Not Available 11/04/2024 14:03:44 10/20/19 25 10/20/2024 prote in, total , body fluid specimen type (obs) PLEURA L FLUID Not Available Not Available 14:03:44 10/20/19 25 10/19/2024 cell count , body fluid source (fluid) PLEURA L FLUID Not Available Not Available 14:03:44 10/20/19 25 10/19/2024 cell count , body fluid volume (fluid) 1470 mL Not Available Not Available 10/24 14:03:44 10/20/19 25 10/19/2024 cell count , body fluid color, body fluid (obs) JACKIE Not Available Not Available 11/04/2024 14:03:44 10/20/19 25 10/19/2024 cell count , body fluid clarity of specimen (obs) EXTREM NAIMA TURBID Not Available Not Available 14:03:44 10/20/19 25 10/19/2024 cell count , body fluid erythrocytes , qn, body fluid 60987 text: cells/ uL The refer ence range and other metho d perfo rmanc e speci ficat ions have not been estab lishe d for this assay on body fluid s. The test resul t shoul d be integ rated into the clini bertrand trixie xt for inter preta tion and utili zed in maria dolores rison to blood sarah ntrat ions of the natalie te as appro priat e. Not Available Not Available 11/04/2024 14:03:44 10/20/1910/19/2024 cell count , body fluid nucleated cells, count, body fluid (obs) 2489 text: cells/ uL The refer ence range and other metho d perfo rmanc e speci ficat ions have not been estab lishe d for this assay on body fluid s. The test resul t shoul d be integ rated into the clini bertrand trixie xt for inter preta tion and utili zed in maria dolores rison to blood [facility] as appro priat e. Not Available Not Available 11/04/2024 14:03:44 10/20/1910/19/2024 cell count , body fluid neutrophils/ 100 leukocytes, body fluid (obs) 73 % The refer ence range and other metho d perfo rmanc e speci ficat ions have not been estab lishe d for this assay on body fluid s. The test resul t shoul d be integ rated into the clini [facility] xt for inter preta tion and utili zed in [place] [facility] [facility] to blood [facility] as appro priat e. Not Available Not Available 11/04/2024 14:03:44 10/20/1910/19/2024 cell count , body fluid lymphocytes/ 100 leukocytes, body fluid (obs) 4 % The refer ence range and other metho d perfo rmanc e speci ficat ions have not been estab lishe d for this assay on body fluid s. The test resul t shoul d be integ rated into the clini [facility] xt for inter preta tion and utili zed in [place] [facility] to blood [facility] appro priat e. Not Available Not Available 11/04/2024 14:03:44 10/20/19 25 10/19/2024 cell count , body fluid mononuclear cells/100 leukocytes, manual, body fluid (obs) 23 % THE FOLLO WING MAY INCLU DE MONOC YTE/M ACROP GISEL, PLASM A CELL, MESOT KERRIE L CELL, BRONC HIAL LININ G CELL, SYNOV IAL LININ G CELL, VENTR ICULA R LININ G CELL, ENDOT KERRIE L CELL, SQUAM OUS EPITH ELIAL AND OTHER CELLS . The refer ence range and other metho d perfo rmanc e speci ficat ions have not been estab lishe d for this assay on body fluid s. The test resul t shoul d be integ rated into the clini [facility] for inter preta tion and utili zed in [place] [facility] to blood [facility] appro priat e. Not Available Not Available 11/04/2024 14:03:44 10/20/1910/19/2024 gluco se, QN, test strip , auto, blood glucose, qn, test strip, auto, blood 188 mg/dL low: 70mg/d Lhigh: 99mg/d L high Not Available Not Available 11/04/2024 14:03:44 10/20/19 25 10/19/2024 gluco se, QN, test strip , auto, blood lab interpretati on Abnorm al Not Available Not Available 14:03:44 10/20/19 25 10/19/2024 PTT (part ial throm bopla stin time) mixin g study PTT (partial thromboplast in time) mixing study 35 text: 25.1 - 36.5 sec Not Available Not Available 11/04/2024 14:03:44 10/20/19 25 10/19/2024 proth rombi n time prothrombin time 19.1 text: 10.2 - 12.9 sec high Not Available Not Available 11/04/2024 14:03:44 10/20/19 25 10/19/2024 proth rombi n time INR, plasma 1.7 Recom silvina d INR Thera peuti c Goals : 2.0-3 .0 Routi ne Thera py 2.5-3 .5 Mecha nical Prost hetic Valve s (High Risk) Not Available Not Available 11/04/2024 14:03:44 10/20/19 25 10/19/2024 proth rombi n time lab interpretati on Abnorm al Not Available Not Available 14:03:44 10/20/19 25 10/20/2024 type + scree n, blood units ordered 1 Not Available Not Available 10/24 14:03:44 10/20/19 25 10/20/2024 type + scree n, blood ABO/Rh B POSITI VE Not Available Not Available 14:03:44 10/20/19 25 10/20/2024 type + scree n, blood antibody screen, serum or plasma NEGATI VE Not Available Not Available 14:03:44 10/20/19 25 10/20/2024 type + scree n, blood specimen expiration date, blood (obs) 2024,2 359 Not Available Not Available 14:03:44 10/20/19 25 10/20/2024 type + scree n, blood blood unit number [id number] Not Available Not Available 14:03:44 10/20/19 25 10/20/2024 type + scree n, blood product: PC LEUKOP OOR Not Available Not Available 14:03:44 10/20/19 25 10/20/2024 type + scree n, blood unit division 0 Not Available Not Available 01/2025 14:03:44 10/20/19 25 10/20/2024 type + scree n, blood blood unit status TRANSF USED,F INAL Not Available Not Available 14:03:44 10/20/19 25 10/20/2024 type + scree n, blood issue date/time [id number] Not Available Not Available 14:03:44 10/20/19 25 10/20/2024 type + scree n, blood product code [id number] Not Available Not Available 14:03:44 10/20/19 10/20/2024 type + scree n, blood ABO/Rh unit B POS Not Available Not Av ailable 11/04/2024 14:03:44 10/20/19 25 10/20/2024 type + scree n, blood ABO/Rh unit isbt code 7300 Not Available Not Available 14:03:44 10/20/19 25 10/20/2024 type + scree n, blood blood unit expiration date [id number] Not Available Not Available 14:03:44 10/20/19 25 10/20/2024 type + scree n, blood transfusion status OK TO TRANSF USE Not Available Not Available 14:03:44 10/20/1910/20/2024 type + scree n, blood major crossmatch (obs) COMPAT IBLE-E XM Not Available Not Available 14:03:44 10/20/19 25 10/19/2024 cell count , body fluid source (fluid) PERITO MITESH FLUID Not Available Not Available 14:03:44 10/20/19 25 10/19/2024 cell count , body fluid volume (fluid) 75 mL Not Available Not Available 10/24 14:03:44 10/20/19 25 10/19/2024 cell count , body fluid color, body fluid (obs) COLORL ESS Not Available Not Available 14:03:44 10/20/19 25 10/19/2024 cell count , body fluid clarity of specimen (obs) CLEAR Not Available Not Available 10/24 14:03:44 10/20/19 25 10/19/2024 cell count , body fluid erythrocytes , qn, body fluid 0 text: cells/ uL The refer ence range and other metho d perfo rmanc e speci ficat ions have not been estab lishe d for this assay on body fluid s. The test resul t shoul d be integ rated into the clini [facility] for inter preta tion and utili zed in [place] to blood [facility] appro priat e. Not Available Not Available 11/04/2024 14:03:44 10/20/1910/19/2024 cell count , body fluid nucleated cells, count, body fluid (obs) 0 text: cells/ uL The refer ence range and other metho d perfo rmanc e speci ficat ions have not been estab lishe d for this assay on body fluid s. The test resul t shoul d be integ rated into the clini [facility] for inter preta tion and utili zed in [place] r[place] to blood [facility] appro priat [facility]. Not Available Not Available 11/04/2024 14:03:44 10/20/1910/19/2024 BMP, serum or plasm a glucose, qn [mass/volume ], serum or plasma 226 text: 70 - 99 mg/dL high Not Available Not Available 11/04/2024 14:03:44 10/20/1910/19/2024 BMP, serum or plasm a BUN (blood urea nitrogen), serum or plasma 45 text: 7 - 18 mg/dL high Not Available Not Available 11/04/2024 14:03:44 10/20/1910/19/2024 BMP, serum or plasm a creatinine, serum or plasma 12.9 text: 0.55 - 1.02 mg/dL critical high Criti bertrand remy(s) Sauceda d at: 08:07 :18 on 10/19 by: KAIN BROWN SON to and read back by:CECI REY L Not Available Not Available 11/04/2024 14:03:44 10/20/1910/19/2024 BMP, serum or plasm a sodium, serum or plasma 132 text: 136 - 145 mmol/L low Not Available Not Available 11/04/2024 14:03:44 10/20/19 25 10/19/2024 BMP, serum or plasm a potassium, serum or plasma 3.6 text: 3.5 - 5.1 mmol/L Not Available Not Available 11/04/2024 14:03:44 10/20/19 25 10/19/2024 BMP, serum or plasm a chloride, serum or plasma 95 text: 97 - 115 mmol/L low Not Available Not Available 11/04/2024 14:03:44 10/20/19 10/19/2024 BMP, serum or plasm a CO2, (carbon dioxide), total, serum or plasma 29.4 text: 21 - 32 mmol/L Not Available Not Available 11/04/2024 14:03:44 10/20/1910/19/2024 BMP, serum or plasm a calcium, serum or plasma 8.7 text: 8.5 - 10.1 mg/dL Not Available Not Available 11/04/2024 14:03:44 10/20/1910/19/2024 BMP, serum or plasm a anion gap, serum or plasma 7.6 text: 2 - 10 mmol/L Not Available Not Available 11/04/2024 14:03:44 10/20/1910/19/2024 BMP, serum or plasm a BUN/creatini ne, ratio, serum 3.5 low: 6high: 26 low Not Available Not Available 11/04/2024 14:03:44 10/20/1910/19/2024 BMP, serum or plasm a glomerular filtration rate/1.73 sq M predicted, qn, creatinine based formula (CKD-epi 2020), serum or plasma or blood 3 text: >90 mL/min /1.73 M2 low NOTE: eGFR is not calcu lated for patie nts <18 years of age or gende r unkno wn. This is an estim ated GFR calcu latio n using the new CKD EPI creat inine equat ion witho ut race and so does not requi re a corre ction facto r for race. This estim ated GFR shoul d not be used for calcu latin g drug doses . Not Available Not Available 11/04/2024 14:03:44 10/20/1910/19/2024 BMP, serum or plasm a lab interpretati on Abnorm al Not Available Not Available 14:03:44 10/20/1910/19/2024 CBC w/ auto diff WBC, auto, blood 19.32 text: 4.5 - 11.0 x10'3/ uL high Not Available Not Available 11/04/2024 14:03:44 10/20/19 25 10/19/2024 CBC w/ auto diff RBC count, blood 2.63 text: 4.20 - 5.40 x10'6/ uL low Not Available Not Available 11/04/2024 14:03:44 10/20/19 25 10/19/2024 CBC w/ auto diff hemoglobin (Hb), blood 6.7 text: 12.0 - 16.0 g/dL critical low This resul t has been [place] [id number] on 10/19 07:28 :06, and has been read back. Not Available Not Available 11/04/2024 14:03:44 10/20/19 25 10/19/2024 CBC w/ auto diff hematocrit, blood 21.5 % low: 38%hig h: 48% low Not Available Not Available 11/04/2024 14:03:44 10/20/19 25 10/19/2024 CBC w/ auto diff MCV, qn (obs) 81.7 text: 81.0 - 99.0 fL Not Available Not Available 11/04/2024 14:03:44 10/20/19 25 10/19/2024 CBC w/ auto diff MCH, qn (obs) 25.5 pg low: 27pghi gh: 31pg low Not Available Not Available 11/04/2024 14:03:44 10/20/19 25 10/19/2024 CBC w/ auto diff mean corpuscular hemoglobin concentratio n, qn, RBC 31.2 text: 32.0 - 36.0 g/dL low Not Available Not Available 11/04/2024 14:03:44 10/20/19 25 10/19/2024 CBC w/ auto diff RDW 15.5 % low: 11.5%h igh: 14.5% high Not Available Not Available 11/04/2024 14:03:44 10/20/19 25 10/19/2024 CBC w/ auto diff platelet count, blood 398 text: 130 - 400 x10'3/ uL Not Available Not Available 11/04/2024 14:03:44 10/20/19 25 10/19/2024 CBC w/ auto diff platelet mean volume, qn, blood (obs) 9.5 text: 9.3 - 12.2 fL Not Available Not Available 11/04/2024 14:03:44 10/20/19 25 10/19/2024 CBC w/ auto diff differential cell count method, blood (obs) MANUAL DIFFER ENTIAL Not Available Not Available 14:03:44 10/20/19 25 10/19/2024 CBC w/ auto diff segmented neutrophils/ 100 leukocytes, manual, blood (obs) 75 % Not Available Not Available 11/04/2024 14:03:44 10/20/19 25 10/19/2024 CBC w/ auto diff lymphocytes/ 100 leukocytes, manual, blood (obs) 14 % Not Available Not Available 11/04/2024 14:03:44 10/20/19 25 10/19/2024 CBC w/ auto diff monocytes/10 0 leukocytes, manual, blood (obs) 5 % Not Available Not Available 11/04/2024 14:03:44 10/20/19 25 10/19/2024 CBC w/ auto diff eosinophils/ 100 leukocytes, manual, blood (obs) 5 % Not Available Not Available 11/04/2024 14:03:44 10/20/19 25 10/19/2024 CBC w/ auto diff basophils/10 0 leukocytes, blood (obs) 1 % Not Available Not Available 11/04/2024 14:03:44 10/20/19 25 10/19/2024 CBC w/ auto diff neutrophils, count, blood (obs) 14.49 text: 1.80 - 7.70 x10'3/ uL high Not Available Not Available 11/04/2024 14:03:44 10/20/19 25 10/19/2024 CBC w/ auto diff lymphocytes, blood (obs) 2.7 text: 1.00 - 4.80 x10'3/ uL Not Available Not Available 11/04/2024 14:03:44 10/20/19 25 10/19/2024 CBC w/ auto diff monocytes, count, blood (obs) 0.97 text: 0.24 - 0.86 x10'3/ uL high Not Available Not Available 11/04/2024 14:03:44 10/20/19 25 10/19/2024 CBC w/ auto diff eosinophils, quant, blood 0.97 text: 0.04 - 0.36 x10'3/ uL high Not Available Not Available 11/04/2024 14:03:44 10/20/19 25 10/19/2024 CBC w/ auto diff basophils, count, blood (obs) 0.19 text: 0.01 - 0.08 x10'3/ uL high Not Available Not Available 11/04/2024 14:03:44 10/20/19 25 10/19/2024 CBC w/ auto diff erythrocytes , ql, automated, blood (obs) RBC MORPHO LOGY APPEAR S NORMAL . SLIDE REVIEW ED. Not Available Not Available 14:03:44 10/20/19 25 10/19/2024 CBC w/ auto diff platelets, auto, blood ADEQUA TE Not Available Not Available 14:03:44 10/20/19 25 10/19/2024 CBC w/ auto diff lab interpretati on Abnorm al Not Available Not Available 14:03:44 10/20/19 25 10/19/2024 gluco se, QN, test strip , auto, blood glucose, qn, test strip, auto, blood 261 mg/dL low: 70mg/d Lhigh: 99mg/d L high Not Available Not Available 11/04/2024 14:03:43 10/20/19 25 10/19/2024 gluco se, QN, test strip , auto, blood lab interpretati on Abnorm al Not Available Not Available 14:03:43 10/20/19 25 10/19/2024 gluco se, QN, test strip , auto, blood glucose, qn, test strip, auto, blood 270 mg/dL low: 70mg/d Lhigh: 99mg/d L high Not Available Not Available 11/04/2024 14:03:43 10/20/19 25 10/19/2024 gluco se, QN, test strip , auto, blood lab interpretati on Abnorm al Not Available Not Available 14:03:43 10/21/19 25 10/20/2024 gluco se, QN, test strip , auto, blood glucose, qn, test strip, auto, blood 197 mg/dL low: 70mg/d Lhigh: 99mg/d L high Not Available Not Available 11/04/2024 14:03:46 10/21/19 25 10/20/2024 gluco se, QN, test strip , auto, blood lab interpretati on Abnorm al Not Available Not Available 14:03:46 10/21/19 25 10/20/2024 gluco se, QN, test strip , auto, blood glucose, qn, test strip, auto, blood 187 mg/dL low: 70mg/d Lhigh: 99mg/d L high Not Available Not Available 11/04/2024 14:03:46 10/21/19 25 10/20/2024 gluco se, QN, test strip , auto, blood lab interpretati on Abnorm al Not Available Not Available 14:03:46 10/21/19 25 10/20/2024 gluco se, QN, test strip , auto, blood glucose, qn, test strip, auto, blood 182 mg/dL low: 70mg/d Lhigh: 99mg/d L high Not Available Not Available 11/04/2024 14:03:46 10/21/19 25 10/20/2024 gluco se, QN, test strip , auto, blood lab interpretati on Abnorm al Not Available Not Available 14:03:46 10/21/19 25 10/20/2024 gluco se, QN, test strip , auto, blood glucose, qn, test strip, auto, blood 200 mg/dL low: 70mg/d Lhigh: 99mg/d L high Not Available Not Available 11/04/2024 14:03:45 10/21/19 25 10/20/2024 gluco se, QN, test strip , auto, blood lab interpretati on Abnorm al Not Available Not Available 14:03:45 10/21/19 25 10/20/2024 gas panel , venou s blood pH, venous 7.41 low: 7.32hi gh: 7.43 Not Available Not Available 11/04/2024 14:03:45 10/21/19 25 10/20/2024 gas panel , venou s blood carbon dioxide, partial pressure, venous blood 46 text: mmHg NO REFER ENCE RANGE HAS BEEN ESTAB LISHE D Not Available Not Available 11/04/2024 14:03:45 10/21/19 25 10/20/2024 gas panel , venou s blood oxygen, partial pressure, venous blood 37 text: mm hg NO REFER ENCE RANGE HAS BEEN ESTAB LISHE D Not Available Not Available 11/04/2024 14:03:45 10/21/19 25 10/20/2024 gas panel , venou s blood carbon dioxide, total, qn, venous blood 30.6 text: 22.0 - 26.0 mmol/L high Not Available Not Available 11/04/2024 14:03:45 10/21/19 25 10/20/2024 gas panel , venou s blood base excess, calculation, venous blood (obs) 3.8 text: mmol/L NO REFER ENCE RANGE HAS BEEN ESTAB LISHE D Not Available Not Available 11/04/2024 14:03:45 10/21/19 25 10/20/2024 gas panel , venou s blood oxygen saturation, venous blood 71 % NO REFER ENCE RANGE HAS BEEN ESTAB LISHE D Not Available Not Available 11/04/2024 14:03:45 10/21/19 25 10/20/2024 gas panel , venou s blood bicarbonate, quantitative , venous blood 29.2 text: 22.0 - 29.0 mmol/L high Not Available Not Available 11/04/2024 14:03:45 10/21/19 25 10/20/2024 gas panel , venou s blood O2 admin venous 28% Not Available Not Available 10/24 14:03:45 10/21/19 25 10/20/2024 gas panel , venou s blood lab interpretati on Abnorm al Not Available Not Available 14:03:45 10/21/19 25 10/25/2024 cultu re, blood specimen source identified (obs) BLOOD- PEDIAT SMITH VOLUME Not Available Not Available 14:03:45 10/21/19 25 10/25/2024 cultu re, blood special requests NO SPECIA L REQUES T Not Available Not Available 14:03:45 10/21/19 25 10/25/2024 cultu re, blood culture, bacterial NO GROWTH 5 DAYS Not Available Not Available 14:03:45 10/21/19 25 10/25/2024 cultu re, blood specimen source identified (obs) BLOOD- PEDIAT SMITH VOLUME Not Available Not Available 14:03:45 10/21/19 25 10/25/2024 cultu re, blood special requests NO SPECIA L REQUES T Not Available Not Available 14:03:45 10/21/19 25 10/25/2024 cultu re, blood culture, bacterial NO GROWTH 5 DAYS Not Available Not Available 14:03:45 10/21/19 25 10/20/2024 lacti c acid, serum or plasm a lactic acid, serum or plasma 1.2 text: 0.4 - 2.0 mmol/L Not Available Not Available 11/04/2024 14:03:45 10/21/19 25 10/20/2024 gluco se, QN, test strip , auto, blood glucose, qn, test strip, auto, blood 232 mg/dL low: 70mg/d Lhigh: 99mg/d L high Not Available Not Available 11/04/2024 14:03:45 10/21/19 25 10/20/2024 gluco se, QN, test strip , auto, blood lab interpretati on Abnorm al Not Available Not Available 14:03:45 10/21/19 25 10/20/2024 gluco se, QN, test strip , auto, blood glucose, qn, test strip, auto, blood 269 mg/dL low: 70mg/d Lhigh: 99mg/d L high Not Available Not Available 11/04/2024 14:03:45 10/21/19 25 10/20/2024 gluco se, QN, test strip , auto, blood lab interpretati on Abnorm al Not Available Not Available 14:03:45 10/21/19 25 10/20/2024 BMP, serum or plasm a glucose, qn [mass/volume ], serum or plasma 230 text: 70 - 99 mg/dL high Not Available Not Available 11/04/2024 14:03:45 10/21/19 25 10/20/2024 BMP, serum or plasm a BUN (blood urea nitrogen), serum or plasma 47 text: 7 - 18 mg/dL high Not Available Not Available 11/04/2024 14:03:45 0810/20/2024 BMP, serum or plasm a creatinine, serum or plasma 13.1 text: 0.55 - 1.02 mg/dL critical high NOT SAUCEDA D PER [facility] [employer]UE POLIC Y Not Available Not Available 11/04/2024 14:03:45 10/21/1910/20/2024 BMP, serum or plasm a sodium, serum or plasma 133 text: 136 - 145 mmol/L low Not Available Not Available 11/04/2024 14:03:45 10/21/1910/20/2024 BMP, serum or plasm a potassium, serum or plasma 3.8 text: 3.5 - 5.1 mmol/L Not Available Not Available 11/04/2024 14:03:45 10/21/1910/20/2024 BMP, serum or plasm a chloride, serum or plasma 95 text: 97 - 115 mmol/L low Not Available Not Available 11/04/2024 14:03:45 10/21/1910/20/2024 BMP, serum or plasm a CO2, (carbon dioxide), total, serum or plasma 28.3 text: 21 - 32 mmol/L Not Available Not Available 11/04/2024 14:03:45 10/21/1910/20/2024 BMP, serum or plasm a calcium, serum or plasma 9.1 text: 8.5 - 10.1 mg/dL Not Available Not Available 11/04/2024 14:03:45 10/21/1910/20/2024 BMP, serum or plasm a anion gap, serum or plasma 9.7 text: 2 - 10 mmol/L Not Available Not Available 11/04/2024 14:03:45 10/21/1910/20/2024 BMP, serum or plasm a BUN/creatini ne, ratio, serum 3.6 low: 6high: 26 low Not Available Not Available 11/04/2024 14:03:45 10/21/1910/20/2024 BMP, serum or plasm a glomerular filtration rate/1.73 sq M predicted, qn, creatinine based formula (CKD-epi 2020), serum or plasma or blood 3 text: >90 mL/min /1.73 M2 low NOTE: eGFR is not calcu lated for patie nts <18 years of age or gende r unkno wn. This is an estim ated GFR calcu latio n using the new CKD EPI creat inine equat ion witho ut race and so does not requi re a corre ction facto r for race. This estim ated GFR shoul d not be used for calcu latin g drug doses . Not Available Not Available 11/04/2024 14:03:45 10/21/19 25 10/20/2024 BMP, serum or plasm a lab interpretati on Abnorm al Not Available Not Available 14:03:45 10/21/19 25 10/20/2024 CBC w/ auto diff WBC, auto, blood 25.69 text: 4.5 - 11.0 x10'3/ uL high Not Available Not Available 11/04/2024 14:03:45 10/21/19 25 10/20/2024 CBC w/ auto diff RBC count, blood 3.33 text: 4.20 - 5.40 x10'6/ uL low Not Available Not Available 11/04/2024 14:03:45 10/21/19 25 10/20/2024 CBC w/ auto diff hemoglobin (Hb), blood 8.7 text: 12.0 - 16.0 g/dL low Not Available Not Available 11/04/2024 14:03:45 10/21/19 25 10/20/2024 CBC w/ auto diff hematocrit, blood 27.3 % low: 38%hig h: 48% low Not Available Not Available 11/04/2024 14:03:45 10/21/19 25 10/20/2024 CBC w/ auto diff MCV, qn (obs) 82 text: 81.0 - 99.0 fL Not Available Not Available 11/04/2024 14:03:45 10/21/19 25 10/20/2024 CBC w/ auto diff MCH, qn (obs) 26.1 pg low: 27pghi gh: 31pg low Not Available Not Available 11/04/2024 14:03:45 10/21/19 25 10/20/2024 CBC w/ auto diff mean corpuscular hemoglobin concentratio n, qn, RBC 31.9 text: 32.0 - 36.0 g/dL low Not Available Not Available 11/04/2024 14:03:45 10/21/19 25 10/20/2024 CBC w/ auto diff RDW 15.4 % low: 11.5%h igh: 14.5% high Not Available Not Available 11/04/2024 14:03:45 10/21/19 25 10/20/2024 CBC w/ auto diff platelet count, blood 460 text: 130 - 400 x10'3/ uL high Not Available Not Available 11/04/2024 14:03:45 10/21/19 25 10/20/2024 CBC w/ auto diff platelet mean volume, qn, blood (obs) 9.5 text: 9.3 - 12.2 fL Not Available Not Available 11/04/2024 14:03:45 10/21/19 25 10/20/2024 CBC w/ auto diff differential cell count method, blood (obs) MANUAL DIFFER ENTIAL Not Available Not Available 14:03:45 10/21/19 25 10/20/2024 CBC w/ auto diff segmented neutrophils/ 100 leukocytes, manual, blood (obs) 74 % Not Available Not Available 11/04/2024 14:03:45 10/21/19 25 10/20/2024 CBC w/ auto diff lymphocytes/ 100 leukocytes, manual, blood (obs) 10 % Not Available Not Available 11/04/2024 14:03:45 10/21/19 25 10/20/2024 CBC w/ auto diff monocytes/10 0 leukocytes, manual, blood (obs) 11 % Not Available Not Available 11/04/2024 14:03:45 10/21/19 25 10/20/2024 CBC w/ auto diff eosinophils/ 100 leukocytes, manual, blood (obs) 2 % Not Available Not Available 11/04/2024 14:03:45 10/21/19 25 10/20/2024 CBC w/ auto diff band form neutrophils/ 100 leukocytes, manual, blood (obs) 1 % Not Available Not Available 11/04/2024 14:03:45 10/21/19 25 10/20/2024 CBC w/ auto diff myelocytes, count, manual, blood (obs) 2 % Not Available Not Available 11/04/2024 14:03:45 10/21/19 25 10/20/2024 CBC w/ auto diff neutrophils, count, blood (obs) 19.27 text: 1.80 - 7.70 x10'3/ uL high Not Available Not Available 11/04/2024 14:03:45 10/21/19 25 10/20/2024 CBC w/ auto diff lymphocytes, blood (obs) 2.57 text: 1.00 - 4.80 x10'3/ uL Not Available Not Available 11/04/2024 14:03:45 10/21/19 25 10/20/2024 CBC w/ auto diff monocytes, count, blood (obs) 2.83 text: 0.24 - 0.86 x10'3/ uL high Not Available Not Available 11/04/2024 14:03:45 10/21/19 25 10/20/2024 CBC w/ auto diff eosinophils, quant, blood 0.51 text: 0.04 - 0.36 x10'3/ uL high Not Available Not Available 11/04/2024 14:03:45 10/21/19 25 10/20/2024 CBC w/ auto diff myelocytes, count, manual, blood (obs) 0.51 text: 0.00 x10'3/ uL high Not Available Not Available 11/04/2024 14:03:45 10/21/19 25 10/20/2024 CBC w/ auto diff erythrocytes , ql, automated, blood (obs) RBC MORPHO LOGY APPEAR S NORMAL . SLIDE REVIEW ED. Not Available Not Available 14:03:45 10/21/19 25 10/20/2024 CBC w/ auto diff platelets, auto, blood INCREA SED Not Available Not Available 14:03:45 10/21/19 25 10/20/2024 CBC w/ auto diff lab interpretati on Abnorm al Not Available Not Available 14:03:45 10/22/19 25 10/21/2024 gluco se, QN, test strip , auto, blood glucose, qn, test strip, auto, blood 115 mg/dL low: 70mg/d Lhigh: 99mg/d L high Not Available Not Available 11/04/2024 14:03:46 10/22/19 25 10/21/2024 gluco se, QN, test strip , auto, blood lab interpretati on Abnorm al Not Available Not Available 14:03:46 10/22/19 25 10/21/2024 gluco se, QN, test strip , auto, blood glucose, qn, test strip, auto, blood 205 mg/dL low: 70mg/d Lhigh: 99mg/d L high Not Available Not Available 11/04/2024 14:03:46 10/22/19 25 10/21/2024 gluco se, QN, test strip , auto, blood lab interpretati on Abnorm al Not Available Not Available 14:03:46 10/22/19 25 10/21/2024 gluco se, QN, test strip , auto, blood glucose, qn, test strip, auto, blood 213 mg/dL low: 70mg/d Lhigh: 99mg/d L high Not Available Not Available 11/04/2024 14:03:46 10/22/19 25 10/21/2024 gluco se, QN, test strip , auto, blood lab interpretati on Abnorm al Not Available Not Available 14:03:46 10/22/19 25 10/21/2024 CBC w/ auto diff WBC, auto, blood 26.28 text: 4.5 - 11.0 x10'3/ uL high Not Available Not Available 11/04/2024 14:03:46 10/22/19 25 10/21/2024 CBC w/ auto diff RBC count, blood 3.72 text: 4.20 - 5.40 x10'6/ uL low Not Available Not Available 11/04/2024 14:03:46 10/22/19 25 10/21/2024 CBC w/ auto diff hemoglobin (Hb), blood 9.6 text: 12.0 - 16.0 g/dL low Not Available Not Available 11/04/2024 14:03:46 10/22/19 25 10/21/2024 CBC w/ auto diff hematocrit, blood 30.6 % low: 38%hig h: 48% low Not Available Not Available 11/04/2024 14:03:46 10/22/19 25 10/21/2024 CBC w/ auto diff MCV, qn (obs) 82.3 text: 81.0 - 99.0 fL Not Available Not Available 11/04/2024 14:03:46 10/22/19 25 10/21/2024 CBC w/ auto diff MCH, qn (obs) 25.8 pg low: 27pghi gh: 31pg low Not Available Not Available 11/04/2024 14:03:46 10/22/19 25 10/21/2024 CBC w/ auto diff mean corpuscular hemoglobin concentratio n, qn, RBC 31.4 text: 32.0 - 36.0 g/dL low Not Available Not Available 11/04/2024 14:03:46 10/22/19 25 10/21/2024 CBC w/ auto diff RDW 15.5 % low: 11.5%h igh: 14.5% high Not Available Not Available 11/04/2024 14:03:46 10/22/19 25 10/21/2024 CBC w/ auto diff platelet count, blood 480 text: 130 - 400 x10'3/ uL high Not Available Not Available 11/04/2024 14:03:46 10/22/19 25 10/21/2024 CBC w/ auto diff platelet mean volume, qn, blood (obs) 9.6 text: 9.3 - 12.2 fL Not Available Not Available 11/04/2024 14:03:46 10/22/19 25 10/21/2024 CBC w/ auto diff differential cell count method, blood (obs) MANUAL DIFFER ENTIAL Not Available Not Available 14:03:46 10/22/19 25 10/21/2024 CBC w/ auto diff segmented neutrophils/ 100 leukocytes, manual, blood (obs) 83 % Not Available Not Available 11/04/2024 14:03:46 10/22/19 25 10/21/2024 CBC w/ auto diff lymphocytes/ 100 leukocytes, manual, blood (obs) 7 % Not Available Not Available 11/04/2024 14:03:46 10/22/19 25 10/21/2024 CBC w/ auto diff monocytes/10 0 leukocytes, manual, blood (obs) 7 % Not Available Not Available 11/04/2024 14:03:46 10/22/19 25 10/21/2024 CBC w/ auto diff eosinophils/ 100 leukocytes, manual, blood (obs) 1 % Not Available Not Available 11/04/2024 14:03:46 10/22/19 25 10/21/2024 CBC w/ auto diff myelocytes, count, manual, blood (obs) 2 % Not Available Not Available 11/04/2024 14:03:46 10/22/19 25 10/21/2024 CBC w/ auto diff neutrophils, count, blood (obs) 21.81 text: 1.80 - 7.70 x10'3/ uL high Not Available Not Available 11/04/2024 14:03:46 10/22/19 25 10/21/2024 CBC w/ auto diff lymphocytes, blood (obs) 1.84 text: 1.00 - 4.80 x10'3/ uL Not Available Not Available 11/04/2024 14:03:46 10/22/19 25 10/21/2024 CBC w/ auto diff monocytes, count, blood (obs) 1.84 text: 0.24 - 0.86 x10'3/ uL high Not Available Not Available 11/04/2024 14:03:46 10/22/19 25 10/21/2024 CBC w/ auto diff eosinophils, quant, blood 0.26 text: 0.04 - 0.36 x10'3/ uL Not Available Not Available 11/04/2024 14:03:46 10/22/19 25 10/21/2024 CBC w/ auto diff myelocytes, count, manual, blood (obs) 0.53 text: 0.00 x10'3/ uL high Not Available Not Available 11/04/2024 14:03:46 10/22/1910/21/2024 CBC w/ auto diff erythrocytes , ql, automated, blood (obs) SLIDE REVIEW ED Not Available Not Available 14:03:46 10/22/1910/21/2024 CBC w/ auto diff poikilocytos is, ql, automated, blood (obs) 1+ Not Available Not Available 11/04/2024 14:03:46 10/22/19 25 10/21/2024 CBC w/ auto diff polychromasi a, ql, light microscopy, blood (obs) 2+ Not Available Not Available 11/04/2024 14:03:46 08/29/10/21/2024 CBC w/ auto diff platelets, auto, blood INCREA SED Not Available Not Available 14:03:46 10/22/1910/21/2024 CBC w/ auto diff lab interpretati on Abnorm al Not Available Not Available 14:03:46 10/22/1910/21/2024 BMP, serum or plasm a glucose, qn [mass/volume ], serum or plasma 222 text: 70 - 99 mg/dL high Not Available Not Available 11/04/2024 14:03:46 10/22/1910/21/2024 BMP, serum or plasm a BUN (blood urea nitrogen), serum or plasma 46 text: 7 - 18 mg/dL high Not Available Not Available 11/04/2024 14:03:46 10/22/1910/21/2024 BMP, serum or plasm a creatinine, serum or plasma 13.2 text: 0.55 - 1.02 mg/dL critical high NOT SAUCEDA D PER CRITI BERTRAND VALUE POLIC Y Not Available Not Available 11/04/2024 14:03:46 10/22/1910/21/2024 BMP, serum or plasm a sodium, serum or plasma 133 text: 136 - 145 mmol/L low Not Available Not Available 11/04/2024 14:03:46 10/22/1910/21/2024 BMP, serum or plasm a potassium, serum or plasma 3.8 text: 3.5 - 5.1 mmol/L Not Available Not Available 11/04/2024 14:03:46 10/22/1910/21/2024 BMP, serum or plasm a chloride, serum or plasma 96 text: 97 - 115 mmol/L low Not Available Not Available 11/04/2024 14:03:46 10/22/1910/21/2024 BMP, serum or plasm a CO2, (carbon dioxide), total, serum or plasma 26.3 text: 21 - 32 mmol/L Not Available Not Available 11/04/2024 14:03:46 10/22/1910/21/2024 BMP, serum or plasm a calcium, serum or plasma 9.4 text: 8.5 - 10.1 mg/dL Not Available Not Available 11/04/2024 14:03:46 10/22/1910/21/2024 BMP, serum or plasm a anion gap, serum or plasma 10.7 text: 2 - 10 mmol/L high Not Available Not Available 11/04/2024 14:03:46 10/22/19 25 10/21/2024 BMP, serum or plasm a BUN/creatini ne, ratio, serum 3.5 low: 6high: 26 low Not Available Not Available 11/04/2024 14:03:46 10/22/19 25 10/21/2024 BMP, serum or plasm a glomerular filtration rate/1.73 sq M predicted, qn, creatinine based formula (CKD-epi 2020), serum or plasma or blood 3 text: >90 mL/min /1.73 M2 low NOTE: eGFR is not calcu lated for patie nts <18 years of age or gende r unkno wn. This is an estim ated GFR calcu latio n using the new CKD EPI creat inine equat ion witho ut race and so does not requi re a corre ction facto r for race. This estim ated GFR shoul d not be used for calcu latin g drug doses . Not Available Not Available 11/04/2024 14:03:46 10/22/1910/21/2024 BMP, serum or plasm a lab interpretati on Abnorm al Not Available Not Available 14:03:46 10/23/19 25 10/22/2024 gluco se, QN, test strip , auto, blood glucose, qn, test strip, auto, blood 151 mg/dL low: 70mg/d Lhigh: 99mg/d L high Not Available Not Available 11/04/2024 14:03:47 10/23/19 25 10/22/2024 gluco se, QN, test strip , auto, blood lab interpretati on Abnorm al Not Available Not Available 14:03:47 10/23/19 25 10/22/2024 gluco se, QN, test strip , auto, blood glucose, qn, test strip, auto, blood 114 mg/dL low: 70mg/d Lhigh: 99mg/d L high Not Available Not Available 11/04/2024 14:03:47 10/23/19 25 10/22/2024 gluco se, QN, test strip , auto, blood lab interpretati on Abnorm al Not Available Not Available 14:03:47 10/23/19 25 10/22/2024 gluco se, QN, test strip , auto, blood glucose, qn, test strip, auto, blood 175 mg/dL low: 70mg/d Lhigh: 99mg/d L high Not Available Not Available 11/04/2024 14:03:47 10/23/19 25 10/22/2024 gluco se, QN, test strip , auto, blood lab interpretati on Abnorm al Not Available Not Available 14:03:47 10/23/1910/27/2024 cultu re, bacte rial specimen source identified (obs) CATHET ER TIP Not Available Not Available 14:03:47 10/23/19 25 10/27/2024 cultu re, bacte rial special requests NO SPECIA L REQUES T Not Available Not Available 14:03:47 10/23/19 25 10/27/2024 cultu re, bacte rial culture, bacterial NO GROWTH 5 DAYS Not Available Not Available 14:03:47 10/23/19 25 10/27/2024 cultu re, anaer obic specimen source identified (obs) CATHET ER TIP Not Available Not Available 14:03:47 10/23/19 25 10/27/2024 cultu re, anaer obic special requests NO SPECIA L REQUES T Not Available Not Available 14:03:47 10/23/19 25 10/27/2024 cultu re, anaer obic culture, bacterial NO ANAERO BES ISOLAT ED AT 5 DAYS. Not Available Not Available 14:03:47 10/23/19 25 10/22/2024 potas sium, serum or plasm a potassium, serum or plasma 4.5 text: 3.5 - 5.1 mmol/L Not Available Not Available 11/04/2024 14:03:47 10/23/19 25 10/22/2024 CBC w/ auto diff WBC, auto, blood 28.26 text: 4.5 - 11.0 x10'3/ uL high Not Available Not Available 11/04/2024 14:03:47 10/23/19 25 10/22/2024 CBC w/ auto diff RBC count, blood 3.41 text: 4.20 - 5.40 x10'6/ uL low Not Available Not Available 11/04/2024 14:03:47 10/23/19 25 10/22/2024 CBC w/ auto diff hemoglobin (Hb), blood 8.6 text: 12.0 - 16.0 g/dL low Not Available Not Available 11/04/2024 14:03:47 10/23/19 25 10/22/2024 CBC w/ auto diff hematocrit, blood 27.9 % low: 38%hig h: 48% low Not Available Not Available 11/04/2024 14:03:47 10/23/19 25 10/22/2024 CBC w/ auto diff MCV, qn (obs) 81.8 text: 81.0 - 99.0 fL Not Available Not Available 11/04/2024 14:03:47 10/23/19 25 10/22/2024 CBC w/ auto diff MCH, qn (obs) 25.2 pg low: 27pghi gh: 31pg low Not Available Not Available 11/04/2024 14:03:47 10/23/19 25 10/22/2024 CBC w/ auto diff mean corpuscular hemoglobin concentratio n, qn, RBC 30.8 text: 32.0 - 36.0 g/dL low Not Available Not Available 11/04/2024 14:03:47 10/23/19 25 10/22/2024 CBC w/ auto diff RDW 15.8 % low: 11.5%h igh: 14.5% high Not Available Not Available 11/04/2024 14:03:47 10/23/19 25 10/22/2024 CBC w/ auto diff platelet count, blood 524 text: 130 - 400 x10'3/ uL high Not Available Not Available 11/04/2024 14:03:47 10/23/19 25 10/22/2024 CBC w/ auto diff platelet mean volume, qn, blood (obs) 9.4 text: 9.3 - 12.2 fL Not Available Not Available 11/04/2024 14:03:47 10/23/19 25 10/22/2024 CBC w/ auto diff differential cell count method, blood (obs) MANUAL DIFFER ENTIAL Not Available Not Available 14:03:47 10/23/19 25 10/22/2024 CBC w/ auto diff segmented neutrophils/ 100 leukocytes, manual, blood (obs) 82 % Not Available Not Available 11/04/2024 14:03:47 10/23/19 25 10/22/2024 CBC w/ auto diff lymphocytes/ 100 leukocytes, manual, blood (obs) 9 % Not Available Not Available 11/04/2024 14:03:47 10/23/19 25 10/22/2024 CBC w/ auto diff monocytes/10 0 leukocytes, manual, blood (obs) 5 % Not Available Not Available 11/04/2024 14:03:47 10/23/19 25 10/22/2024 CBC w/ auto diff eosinophils/ 100 leukocytes, manual, blood (obs) 4 % Not Available Not Available 11/04/2024 14:03:47 10/23/19 25 10/22/2024 CBC w/ auto diff neutrophils, count, blood (obs) 23.17 text: 1.80 - 7.70 x10'3/ uL high Not Available Not Available 11/04/2024 14:03:47 10/23/19 25 10/22/2024 CBC w/ auto diff lymphocytes, blood (obs) 2.54 text: 1.00 - 4.80 x10'3/ uL Not Available Not Available 11/04/2024 14:03:47 10/23/19 25 10/22/2024 CBC w/ auto diff monocytes, count, blood (obs) 1.41 text: 0.24 - 0.86 x10'3/ uL high Not Available Not Available 11/04/2024 14:03:47 10/23/19 25 10/22/2024 CBC w/ auto diff eosinophils, quant, blood 1.13 text: 0.04 - 0.36 x10'3/ uL high Not Available Not Available 11/04/2024 14:03:47 10/23/19 25 10/22/2024 CBC w/ auto diff erythrocytes , ql, automated, blood (obs) SLIDE REVIEW ED Not Available Not Available 14:03:47 10/23/19 25 10/22/2024 CBC w/ auto diff poikilocytos is, ql, automated, blood (obs) 1+ Not Available Not Available 11/04/2024 14:03:47 10/23/19 25 10/22/2024 CBC w/ auto diff hypochromia, ql, blood (obs) 1+ Not Available Not Available 10/24 14:03:47 10/23/19 25 10/22/2024 CBC w/ auto diff target cells, ql, light microscopy, blood (obs) 1+ Not Available Not Available 11/04/2024 14:03:47 10/23/1910/22/2024 CBC w/ auto diff platelets, auto, blood INCREA SED Not Available Not Available 14:03:47 10/23/19 25 10/22/2024 CBC w/ auto diff lab interpretati on Abnorm al Not Available Not Available 14:03:47 10/23/19 25 10/22/2024 BMP, serum or plasm a glucose, qn [mass/volume ], serum or plasma 156 text: 70 - 99 mg/dL high Not Available Not Available 11/04/2024 14:03:46 10/23/19 25 10/22/2024 BMP, serum or plasm a BUN (blood urea nitrogen), serum or plasma 57 text: 7 - 18 mg/dL high Not Available Not Available 11/04/2024 14:03:46 10/23/1910/22/2024 BMP, serum or plasm a creatinine, serum or plasma 14.7 text: 0.55 - 1.02 mg/dL critical high NOT SAUCEDA D PER CRITI BERTRAND VALUE POLIC Y Not Available Not Available 11/04/2024 14:03:46 10/23/1910/22/2024 BMP, serum or plasm a sodium, serum or plasma 133 text: 136 - 145 mmol/L low Not Available Not Available 11/04/2024 14:03:46 10/23/19 25 10/22/2024 BMP, serum or plasm a potassium, serum or plasma 4.4 text: 3.5 - 5.1 mmol/L Not Available Not Available 11/04/2024 14:03:46 10/23/1910/22/2024 BMP, serum or plasm a chloride, serum or plasma 97 text: 97 - 115 mmol/L Not Available Not Available 11/04/2024 14:03:46 10/23/1910/22/2024 BMP, serum or plasm a CO2, (carbon dioxide), total, serum or plasma 27.1 text: 21 - 32 mmol/L Not Available Not Available 11/04/2024 14:03:46 10/23/1910/22/2024 BMP, serum or plasm a calcium, serum or plasma 9.1 text: 8.5 - 10.1 mg/dL Not Available Not Available 11/04/2024 14:03:46 10/23/1910/22/2024 BMP, serum or plasm a anion gap, serum or plasma 8.9 text: 2 - 10 mmol/L Not Available Not Available 11/04/2024 14:03:46 10/23/1910/22/2024 BMP, serum or plasm a BUN/creatini ne, ratio, serum 3.9 low: 6high: 26 low Not Available Not Available 11/04/2024 14:03:46 10/23/1910/22/2024 BMP, serum or plasm a glomerular filtration rate/1.73 sq M predicted, qn, creatinine based formula (CKD-epi 2020), serum or plasma or blood 3 text: >90 mL/min /1.73 M2 low NOTE: eGFR is not calcu lated for patie nts <18 years of age or gende r unkno wn. This is an estim ated GFR calcu latio n using the new CKD EPI creat inine equat ion witho ut race and so does not requi re a corre ction facto r for race. This estim ated GFR shoul d not be used for calcu latin g drug doses . Not Available Not Available 11/04/2024 14:03:46 10/23/1910/22/2024 BMP, serum or plasm a lab interpretati on Abnorm al Not Available Not Available 14:03:46 10/23/1910/22/2024 chori ogona dotro pin, qual, urine choriogonado tropin, qual, urine NEGATI VE VERY DILUT E URINE SPECI MENS MAY NOT CONTA IN REPRE SENTA TIVE LEVEL S OF HCG. IF PREGN BEATRIS IS STILL SUSPE CTED, A SERUM HCG TEST IS RECOM SILVINA D. Not Available Not Available 11/04/2024 14:03:46 10/23/19 25 10/22/2024 gluco se, QN, test strip , auto, blood glucose, qn, test strip, auto, blood 149 mg/dL low: 70mg/d Lhigh: 99mg/d L high Not Available Not Available 11/04/2024 14:03:46 10/23/19 25 10/22/2024 gluco se, QN, test strip , auto, blood lab interpretati on Abnorm al Not Available Not Available 14:03:46 10/24/19 25 10/24/2024 type + scree n, blood ABO/Rh B POSITI VE Not Available Not Available 14:03:48 10/24/19 25 10/24/2024 type + scree n, blood antibody screen, serum or plasma NEGATI VE Not Available Not Available 14:03:48 10/24/19 25 10/24/2024 type + scree n, blood specimen expiration date, blood (obs) 2024,2 359 Not Available Not Available 14:03:48 10/24/19 25 10/24/2024 CBC w/ auto diff WBC, auto, blood 22.4 text: 4.5 - 11.0 x10'3/ uL high Not Available Not Available 11/04/2024 14:03:48 10/24/19 25 10/24/2024 CBC w/ auto diff RBC count, blood 3.14 text: 4.20 - 5.40 x10'6/ uL low Not Available Not Available 11/04/2024 14:03:48 10/24/19 25 10/24/2024 CBC w/ auto diff hemoglobin (Hb), blood 8.2 text: 12.0 - 16.0 g/dL low Not Available Not Available 11/04/2024 14:03:48 10/24/19 25 10/24/2024 CBC w/ auto diff hematocrit, blood 26 % low: 38%hig h: 48% low Not Available Not Available 11/04/2024 14:03:48 10/24/19 25 10/24/2024 CBC w/ auto diff MCV, qn (obs) 82.8 text: 81.0 - 99.0 fL Not Available Not Available 11/04/2024 14:03:48 10/24/19 25 10/24/2024 CBC w/ auto diff MCH, qn (obs) 26.1 pg low: 27pghi gh: 31pg low Not Available Not Available 11/04/2024 14:03:48 10/24/19 25 10/24/2024 CBC w/ auto diff mean corpuscular hemoglobin concentratio n, qn, RBC 31.5 text: 32.0 - 36.0 g/dL low Not Available Not Available 11/04/2024 14:03:48 10/24/19 25 10/24/2024 CBC w/ auto diff RDW 15.8 % low: 11.5%h igh: 14.5% high Not Available Not Available 11/04/2024 14:03:48 10/24/19 25 10/24/2024 CBC w/ auto diff platelet count, blood 487 text: 130 - 400 x10'3/ uL high Not Available Not Available 11/04/2024 14:03:48 10/24/19 25 10/24/2024 CBC w/ auto diff platelet mean volume, qn, blood (obs) 8.9 text: 9.3 - 12.2 fL low Not Available Not Available 11/04/2024 14:03:48 10/24/19 25 10/24/2024 CBC w/ auto diff differential cell count method, blood (obs) AUTOMA GRAEME DIFFER ENTIAL Not Available Not Available 14:03:48 10/24/19 25 10/24/2024 CBC w/ auto diff neutrophils/ 100 leukocytes, automated, blood (obs) 79.7 % Not Available Not Available 11/04/2024 14:03:48 10/24/19 25 10/24/2024 CBC w/ auto diff lymphocytes/ 100 leukocytes, automated, blood (obs) 9.7 % Not Available Not Available 11/04/2024 14:03:48 10/24/19 25 10/24/2024 CBC w/ auto diff monocytes/10 0 leukocytes, automated, blood (obs) 6.4 % Not Available Not Available 11/04/2024 14:03:48 10/24/19 25 10/24/2024 CBC w/ auto diff eosinophils/ 100 leukocytes, automated, blood (obs) 0.8 % Not Available Not Available 11/04/2024 14:03:48 10/24/19 25 10/24/2024 CBC w/ auto diff basophils/10 0 leukocytes, automated, blood (obs) 0.4 % Not Available Not Available 11/04/2024 14:03:48 10/24/1910/24/2024 CBC w/ auto diff immature granulocytes /100 leukocytes, automated, blood (obs) 3 % Not Available Not Available 11/04/2024 14:03:48 10/24/19 25 10/24/2024 CBC w/ auto diff neutrophils, count, blood (obs) 17.85 text: 1.80 - 7.70 x10'3/ uL high Not Available Not Available 11/04/2024 14:03:48 10/24/19 25 10/24/2024 CBC w/ auto diff lymphocytes, blood (obs) 2.17 text: 1.00 - 4.80 x10'3/ uL Not Available Not Available 11/04/2024 14:03:48 10/24/19 25 10/24/2024 CBC w/ auto diff monocytes, count, blood (obs) 1.44 text: 0.24 - 0.86 x10'3/ uL high Not Available Not Available 11/04/2024 14:03:48 10/24/19 25 10/24/2024 CBC w/ auto diff eosinophils, quant, blood 0.19 text: 0.04 - 0.36 x10'3/ uL Not Available Not Available 11/04/2024 14:03:48 10/24/19 25 10/24/2024 CBC w/ auto diff basophils, count, blood (obs) 0.08 text: 0.01 - 0.08 x10'3/ uL Not Available Not Available 11/04/2024 14:03:48 10/24/19 25 10/24/2024 CBC w/ auto diff immature granulocytes count, blood 0.67 text: 0.00 - 0.49 x10'3/ uL high Not Available Not Available 11/04/2024 14:03:48 10/24/19 25 10/24/2024 CBC w/ auto diff lab interpretati on Abnorm al Not Available Not Available 14:03:48 10/24/19 25 10/23/2024 gluco se, QN, test strip , auto, blood glucose, qn, test strip, auto, blood 164 mg/dL low: 70mg/d Lhigh: 99mg/d L high Not Available Not Available 11/04/2024 14:03:48 10/24/19 25 10/23/2024 gluco se, QN, test strip , auto, blood lab interpretati on Abnorm al Not Available Not Available 14:03:48 10/24/19 25 10/23/2024 gluco se, QN, test strip , auto, blood glucose, qn, test strip, auto, blood 134 mg/dL low: 70mg/d Lhigh: 99mg/d L high Not Available Not Available 11/04/2024 14:03:48 10/24/19 25 10/23/2024 gluco se, QN, test strip , auto, blood lab interpretati on Abnorm al Not Available Not Available 14:03:48 10/24/19 25 10/23/2024 CBC w/ auto diff WBC, auto, blood 23.69 text: 4.5 - 11.0 x10'3/ uL high Not Available Not Available 11/04/2024 14:03:48 10/24/19 25 10/23/2024 CBC w/ auto diff RBC count, blood 3.47 text: 4.20 - 5.40 x10'6/ uL low Not Available Not Available 11/04/2024 14:03:48 10/24/19 25 10/23/2024 CBC w/ auto diff hemoglobin (Hb), blood 9 text: 12.0 - 16.0 g/dL low Not Available Not Available 11/04/2024 14:03:48 10/24/19 25 10/23/2024 CBC w/ auto diff hematocrit, blood 28.7 % low: 38%hig h: 48% low Not Available Not Available 11/04/2024 14:03:48 10/24/19 25 10/23/2024 CBC w/ auto diff MCV, qn (obs) 82.7 text: 81.0 - 99.0 fL Not Available Not Available 11/04/2024 14:03:48 10/24/19 25 10/23/2024 CBC w/ auto diff MCH, qn (obs) 25.9 pg low: 27pghi gh: 31pg low Not Available Not Available 11/04/2024 14:03:48 10/24/19 25 10/23/2024 CBC w/ auto diff mean corpuscular hemoglobin concentratio n, qn, RBC 31.4 text: 32.0 - 36.0 g/dL low Not Available Not Available 11/04/2024 14:03:48 10/24/19 25 10/23/2024 CBC w/ auto diff RDW 15.8 % low: 11.5%h igh: 14.5% high Not Available Not Available 11/04/2024 14:03:48 10/24/19 25 10/23/2024 CBC w/ auto diff platelet count, blood 514 text: 130 - 400 x10'3/ uL high Not Available Not Available 11/04/2024 14:03:48 10/24/19 25 10/23/2024 CBC w/ auto diff platelet mean volume, qn, blood (obs) 9.2 text: 9.3 - 12.2 fL low Not Available Not Available 11/04/2024 14:03:48 10/24/1910/23/2024 CBC w/ auto diff differential cell count method, blood (obs) AUTOMA GRAEME DIFFER ENTIAL Not Available Not Available 14:03:48 10/24/19 25 10/23/2024 CBC w/ auto diff neutrophils/ 100 leukocytes, automated, blood (obs) 83.9 % Not Available Not Available 11/04/2024 14:03:48 10/24/19 25 10/23/2024 CBC w/ auto diff lymphocytes/ 100 leukocytes, automated, blood (obs) 8.1 % Not Available Not Available 11/04/2024 14:03:48 10/24/19 25 10/23/2024 CBC w/ auto diff monocytes/10 0 leukocytes, automated, blood (obs) 5.4 % Not Available Not Available 11/04/2024 14:03:48 10/24/1910/23/2024 CBC w/ auto diff eosinophils/ 100 leukocytes, automated, blood (obs) 0.3 % Not Available Not Available 11/04/2024 14:03:48 10/24/19 25 10/23/2024 CBC w/ auto diff basophils/10 0 leukocytes, automated, blood (obs) 0.3 % Not Available Not Available 11/04/2024 14:03:48 10/24/19 25 10/23/2024 CBC w/ auto diff immature granulocytes /100 leukocytes, automated, blood (obs) 2 % Not Available Not Available 11/04/2024 14:03:48 10/24/1910/23/2024 CBC w/ auto diff neutrophils, count, blood (obs) 19.88 text: 1.80 - 7.70 x10'3/ uL high Not Available Not Available 11/04/2024 14:03:48 10/24/19 25 10/23/2024 CBC w/ auto diff lymphocytes, blood (obs) 1.91 text: 1.00 - 4.80 x10'3/ uL Not Available Not Available 11/04/2024 14:03:48 10/24/1910/23/2024 CBC w/ auto diff monocytes, count, blood (obs) 1.27 text: 0.24 - 0.86 x10'3/ uL high Not Available Not Available 11/04/2024 14:03:48 10/24/1910/23/2024 CBC w/ auto diff eosinophils, quant, blood 0.08 text: 0.04 - 0.36 x10'3/ uL Not Available Not Available 11/04/2024 14:03:48 10/24/1910/23/2024 CBC w/ auto diff basophils, count, blood (obs) 0.08 text: 0.01 - 0.08 x10'3/ uL Not Available Not Available 11/04/2024 14:03:48 10/24/19 25 10/23/2024 CBC w/ auto diff immature granulocytes count, blood 0.47 text: 0.00 - 0.49 x10'3/ uL Not Available Not Available 11/04/2024 14:03:48 10/24/19 25 10/23/2024 CBC w/ auto diff lab interpretati on Abnorm al Not Available Not Available 14:03:48 10/24/19 25 10/23/2024 BMP, serum or plasm a glucose, qn [mass/volume ], serum or plasma 206 text: 70 - 99 mg/dL high Not Available Not Available 11/04/2024 14:03:47 10/24/19 25 10/23/2024 BMP, serum or plasm a BUN (blood urea nitrogen), serum or plasma 41 text: 7 - 18 mg/dL high Not Available Not Available 11/04/2024 14:03:47 10/24/1910/23/2024 BMP, serum or plasm a creatinine, serum or plasma 10.2 text: 0.55 - 1.02 mg/dL critical high NOT SAUCEDA D PER CRITI BERTRAND VALUE POLIC Y Not Available Not Available 11/04/2024 14:03:47 10/24/1910/23/2024 BMP, serum or plasm a sodium, serum or plasma 135 text: 136 - 145 mmol/L low Not Available Not Available 11/04/2024 14:03:47 10/24/1910/23/2024 BMP, serum or plasm a potassium, serum or plasma 4.6 text: 3.5 - 5.1 mmol/L Not Available Not Available 11/04/2024 14:03:47 10/24/1910/23/2024 BMP, serum or plasm a chloride, serum or plasma 97 text: 97 - 115 mmol/L Not Available Not Available 11/04/2024 14:03:47 10/24/1910/23/2024 BMP, serum or plasm a CO2, (carbon dioxide), total, serum or plasma 29.5 text: 21 - 32 mmol/L Not Available Not Available 11/04/2024 14:03:47 10/24/1910/23/2024 BMP, serum or plasm a calcium, serum or plasma 9.4 text: 8.5 - 10.1 mg/dL Not Available Not Available 11/04/2024 14:03:47 10/24/1910/23/2024 BMP, serum or plasm a anion gap, serum or plasma 8.5 text: 2 - 10 mmol/L Not Available Not Available 11/04/2024 14:03:47 10/24/1910/23/2024 BMP, serum or plasm a BUN/creatini ne, ratio, serum 4 low: 6high: 26 low Not Available Not Available 11/04/2024 14:03:47 10/24/19 25 10/23/2024 BMP, serum or plasm a glomerular filtration rate/1.73 sq M predicted, qn, creatinine based formula (CKD-epi 2020), serum or plasma or blood 4 text: >90 mL/min /1.73 M2 low NOTE: eGFR is not calcu lated for patie nts <18 years of age or gende r unkno wn. This is an estim ated GFR calcu latio n using the new CKD EPI creat inine equat ion witho ut race and so does not requi re a corre ction facto r for race. This estim ated GFR shoul d not be used for calcu latin g drug doses . Not Available Not Available 11/04/2024 14:03:47 10/24/19 25 10/23/2024 BMP, serum or plasm a lab interpretati on Abnorm al Not Available Not Available 14:03:47 10/24/1910/23/2024 gluco se, QN, test strip , auto, blood glucose, qn, test strip, auto, blood 235 mg/dL low: 70mg/d Lhigh: 99mg/d L high Not Available Not Available 11/04/2024 14:03:47 10/24/1910/23/2024 gluco se, QN, test strip , auto, blood lab interpretati on Abnorm al Not Available Not Available 14:03:47 10/24/1910/23/2024 gluco se, QN, test strip , auto, blood glucose, qn, test strip, auto, blood 138 mg/dL low: 70mg/d Lhigh: 99mg/d L high Not Available Not Available 11/04/2024 14:03:47 10/24/19 25 10/23/2024 gluco se, QN, test strip , auto, blood lab interpretati on Abnorm al Not Available Not Available 14:03:47 10/25/19 25 10/24/2024 gluco se, QN, test strip , auto, blood glucose, qn, test strip, auto, blood 111 mg/dL low: 70mg/d Lhigh: 99mg/d L high Not Available Not Available 11/04/2024 14:03:48 10/25/19 25 10/24/2024 gluco se, QN, test strip , auto, blood lab interpretati on Abnorm al Not Available Not Available 14:03:48 10/25/19 25 10/24/2024 gluco se, QN, test strip , auto, blood glucose, qn, test strip, auto, blood 193 mg/dL low: 70mg/d Lhigh: 99mg/d L high Not Available Not Available 11/04/2024 14:03:48 10/25/19 25 10/24/2024 gluco se, QN, test strip , auto, blood lab interpretati on Abnorm al Not Available Not Available 14:03:48 10/25/19 25 10/24/2024 gluco se, QN, test strip , auto, blood glucose, qn, test strip, auto, blood 150 mg/dL low: 70mg/d Lhigh: 99mg/d L high Not Available Not Available 11/04/2024 14:03:48 10/25/19 25 10/24/2024 gluco se, QN, test strip , auto, blood lab interpretati on Abnorm al Not Available Not Available 14:03:48 10/25/19 25 10/24/2024 BMP, serum or plasm a glucose, qn [mass/volume ], serum or plasma 108 text: 70 - 99 mg/dL high Not Available Not Available 11/04/2024 14:03:48 10/25/19 25 10/24/2024 BMP, serum or plasm a BUN (blood urea nitrogen), serum or plasma 46 text: 7 - 18 mg/dL high Not Available Not Available 11/04/2024 14:03:48 10/25/19 25 10/24/2024 BMP, serum or plasm a creatinine, serum or plasma 11.3 text: 0.55 - 1.02 mg/dL critical high NOT SAUCEDA D PER CRITI BERTRAND VALUE POLIC Y Not Available Not Available 11/04/2024 14:03:48 10/25/1910/24/2024 BMP, serum or plasm a sodium, serum or plasma 136 text: 136 - 145 mmol/L Not Available Not Available 11/04/2024 14:03:48 10/25/1910/24/2024 BMP, serum or plasm a potassium, serum or plasma 4.3 text: 3.5 - 5.1 mmol/L Not Available Not Available 11/04/2024 14:03:48 10/25/1910/24/2024 BMP, serum or plasm a chloride, serum or plasma 99 text: 97 - 115 mmol/L Not Available Not Available 11/04/2024 14:03:48 10/25/1910/24/2024 BMP, serum or plasm a CO2, (carbon dioxide), total, serum or plasma 30.7 text: 21 - 32 mmol/L Not Available Not Available 11/04/2024 14:03:48 10/25/1910/24/2024 BMP, serum or plasm a calcium, serum or plasma 8.9 text: 8.5 - 10.1 mg/dL Not Available Not Available 11/04/2024 14:03:48 10/25/1910/24/2024 BMP, serum or plasm a anion gap, serum or plasma 6.3 text: 2 - 10 mmol/L Not Available Not Available 11/04/2024 14:03:48 10/25/1910/24/2024 BMP, serum or plasm a BUN/creatini ne, ratio, serum 4.1 low: 6high: 26 low Not Available Not Available 11/04/2024 14:03:48 10/25/1910/24/2024 BMP, serum or plasm a glomerular filtration rate/1.73 sq M predicted, qn, creatinine based formula (CKD-epi 2020), serum or plasma or blood 4 text: >90 mL/min /1.73 M2 low NOTE: eGFR is not calcu lated for patie nts <18 years of age or gende r unkno wn. This is an estim ated GFR calcu latio n using the new CKD EPI creat inine equat ion witho ut race and so does not requi re a corre ction facto r for race. This estim ated GFR shoul d not be used for calcu latin g drug doses . Not Available Not Available 11/04/2024 14:03:48 10/25/1910/24/2024 BMP, serum or plasm a lab interpretati on Abnorm al Not Available Not Available 14:03:48 10/25/1910/24/2024 CBC w/ auto diff WBC, auto, blood 19.27 text: 4.5 - 11.0 x10'3/ uL high Not Available Not Available 11/04/2024 14:03:48 10/25/1910/24/2024 CBC w/ auto diff RBC count, blood 3.22 text: 4.20 - 5.40 x10'6/ uL low Not Available Not Available 11/04/2024 14:03:48 10/25/1910/24/2024 CBC w/ auto diff hemoglobin (Hb), blood 8.1 text: 12.0 - 16.0 g/dL low Not Available Not Available 11/04/2024 14:03:48 10/25/1910/24/2024 CBC w/ auto diff hematocrit, blood 26.6 % low: 38%hig h: 48% low Not Available Not Available 11/04/2024 14:03:48 10/25/1910/24/2024 CBC w/ auto diff MCV, qn (obs) 82.6 text: 81.0 - 99.0 fL Not Available Not Available 11/04/2024 14:03:48 10/25/1910/24/2024 CBC w/ auto diff MCH, qn (obs) 25.2 pg low: 27pghi gh: 31pg low Not Available Not Available 11/04/2024 14:03:48 10/25/19 25 10/24/2024 CBC w/ auto diff mean corpuscular hemoglobin concentratio n, qn, RBC 30.5 text: 32.0 - 36.0 g/dL low Not Available Not Available 11/04/2024 14:03:48 10/25/1910/2410/24/2024 CBC w/ auto diff RDW 15.8 % low: 11.5%h igh: 14.5% high Not Available Not Available 11/04/2024 14:03:48 10/25/19 25 10/24/2024 CBC w/ auto diff platelet count, blood 501 text: 130 - 400 x10'3/ uL high Not Available Not Available 11/04/2024 14:03:48 10/25/19 25 10/24/2024 CBC w/ auto diff platelet mean volume, qn, blood (obs) 9.1 text: 9.3 - 12.2 fL low Not Available Not Available 11/04/2024 14:03:48 10/25/1910/24/2024 CBC w/ auto diff differential cell count method, blood (obs) AUTOMA GRAEME DIFFER ENTIAL Not Available Not Available 14:03:48 10/25/19 25 10/24/2024 CBC w/ auto diff neutrophils/ 100 leukocytes, automated, blood (obs) 73.1 % Not Available Not Available 11/04/2024 14:03:48 10/25/19 25 10/24/2024 CBC w/ auto diff lymphocytes/ 100 leukocytes, automated, blood (obs) 14.5 % Not Available Not Available 11/04/2024 14:03:48 10/25/19 25 10/24/2024 CBC w/ auto diff monocytes/10 0 leukocytes, automated, blood (obs) 7.3 % Not Available Not Available 11/04/2024 14:03:48 10/25/19 25 10/24/2024 CBC w/ auto diff eosinophils/ 100 leukocytes, automated, blood (obs) 1.9 % Not Available Not Available 11/04/2024 14:03:48 10/25/19 25 10/24/2024 CBC w/ auto diff basophils/10 0 leukocytes, automated, blood (obs) 0.6 % Not Available Not Available 11/04/2024 14:03:48 10/25/19 25 10/24/2024 CBC w/ auto diff immature granulocytes /100 leukocytes, automated, blood (obs) 2.6 % Not Available Not Available 11/04/2024 14:03:48 10/25/19 25 10/24/2024 CBC w/ auto diff neutrophils, count, blood (obs) 14.11 text: 1.80 - 7.70 x10'3/ uL high Not Available Not Available 11/04/2024 14:03:48 10/25/19 25 10/24/2024 CBC w/ auto diff lymphocytes, blood (obs) 2.79 text: 1.00 - 4.80 x10'3/ uL Not Available Not Available 11/04/2024 14:03:48 10/25/19 25 10/24/2024 CBC w/ auto diff monocytes, count, blood (obs) 1.4 text: 0.24 - 0.86 x10'3/ uL high Not Available Not Available 11/04/2024 14:03:48 10/25/1910/24/2024 CBC w/ auto diff eosinophils, quant, blood 0.36 text: 0.04 - 0.36 x10'3/ uL Not Available Not Available 11/04/2024 14:03:48 10/25/1910/24/2024 CBC w/ auto diff basophils, count, blood (obs) 0.11 text: 0.01 - 0.08 x10'3/ uL high Not Available Not Available 11/04/2024 14:03:48 10/25/1910/24/2024 CBC w/ auto diff immature granulocytes count, blood 0.5 text: 0.00 - 0.49 x10'3/ uL high Not Available Not Available 11/04/2024 14:03:48 10/25/19 25 10/24/2024 CBC w/ auto diff lab interpretati on Abnorm al Not Available Not Available 14:03:48 10/25/1910/24/2024 gluco se, QN, test strip , auto, blood glucose, qn, test strip, auto, blood 119 mg/dL low: 70mg/d Lhigh: 99mg/d L high Not Available Not Available 11/04/2024 14:03:48 10/25/19 25 10/24/2024 gluco se, QN, test strip , auto, blood lab interpretati on Abnorm al Not Available Not Available 14:03:48 09/02/20 25 10/25/2024 gluco se, QN, test strip , auto, blood glucose, qn, test strip, auto, blood 101 mg/dL low: 70mg/d Lhigh: 99mg/d L high Not Available Not Available 11/04/2024 14:03:49 10/26/1910/25/2024 gluco se, QN, test strip , auto, blood lab interpretati on Abnorm al Not Available Not Available 14:03:49 10/26/1910/25/2024 gluco se, QN, test strip , auto, blood glucose, qn, test strip, auto, blood 127 mg/dL low: 70mg/d Lhigh: 99mg/d L high Not Available Not Available 11/04/2024 14:03:49 10/26/1910/25/2024 gluco se, QN, test strip , auto, blood lab interpretati on Abnorm al Not Available Not Available 14:03:49 10/26/1910/25/2024 CK (crea robert kinas e), total , serum CK (creatine kinase), total, serum 50 U/L low: 21U/Lh igh: 215U/L Not Available Not Available 11/04/2024 14:03:49 10/26/1910/25/2024 BMP, serum or plasm a glucose, qn [mass/volume ], serum or plasma 90 text: 70 - 99 mg/dL Not Available Not Available 11/04/2024 14:03:49 10/26/1910/25/2024 BMP, serum or plasm a BUN (blood urea nitrogen), serum or plasma 52 text: 7 - 18 mg/dL high Not Available Not Available 11/04/2024 14:03:49 10/26/19 25 10/25/2024 BMP, serum or plasm a creatinine, serum or plasma 12.4 text: 0.55 - 1.02 mg/dL critical high NOT SAUCEDA D PER CRITI BERTRAND VALUE POLIC Y Not Available Not Available 11/04/2024 14:03:49 10/26/19 25 10/25/2024 BMP, serum or plasm a sodium, serum or plasma 134 text: 136 - 145 mmol/L low Not Available Not Available 11/04/2024 14:03:49 10/26/1910/25/2024 BMP, serum or plasm a potassium, serum or plasma 4.2 text: 3.5 - 5.1 mmol/L Not Available Not Available 11/04/2024 14:03:49 10/26/1910/25/2024 BMP, serum or plasm a chloride, serum or plasma 97 text: 97 - 115 mmol/L Not Available Not Available 11/04/2024 14:03:49 10/26/1910/25/2024 BMP, serum or plasm a CO2, (carbon dioxide), total, serum or plasma 29.5 text: 21 - 32 mmol/L Not Available Not Available 11/04/2024 14:03:49 10/26/1910/25/2024 BMP, serum or plasm a calcium, serum or plasma 8.7 text: 8.5 - 10.1 mg/dL Not Available Not Available 11/04/2024 14:03:49 10/26/1910/25/2024 BMP, serum or plasm a anion gap, serum or plasma 7.5 text: 2 - 10 mmol/L Not Available Not Available 11/04/2024 14:03:49 10/26/1910/25/2024 BMP, serum or plasm a BUN/creatini ne, ratio, serum 4.2 low: 6high: 26 low Not Available Not Available 11/04/2024 14:03:49 10/26/1910/25/2024 BMP, serum or plasm a glomerular filtration rate/1.73 sq M predicted, qn, creatinine based formula (CKD-epi 2020), serum or plasma or blood 3 text: >90 mL/min /1.73 M2 low NOTE: eGFR is not calcu lated for patie nts <18 years of age or gende r unkno wn. This is an estim ated GFR calcu latio n using the new CKD EPI creat inine equat ion witho ut race and so does not requi re a corre ction facto r for race. This estim ated GFR shoul d not be used for calcu latin g drug doses . Not Available Not Available 11/04/2024 14:03:49 10/26/1910/25/2024 BMP, serum or plasm a lab interpretati on Abnorm al Not Available Not Available 14:03:49 10/26/19 25 10/25/2024 CBC w/ auto diff WBC, auto, blood 18.84 text: 4.5 - 11.0 x10'3/ uL high Not Available Not Available 11/04/2024 14:03:49 10/26/19 25 10/25/2024 CBC w/ auto diff RBC count, blood 3.13 text: 4.20 - 5.40 x10'6/ uL low Not Available Not Available 11/04/2024 14:03:49 10/26/19 25 10/25/2024 CBC w/ auto diff hemoglobin (Hb), blood 8.1 text: 12.0 - 16.0 g/dL low Not Available Not Available 11/04/2024 14:03:49 10/26/19 25 10/25/2024 CBC w/ auto diff hematocrit, blood 26.2 % low: 38%hig h: 48% low Not Available Not Available 11/04/2024 14:03:49 10/26/19 25 10/25/2024 CBC w/ auto diff MCV, qn (obs) 83.7 text: 81.0 - 99.0 fL Not Available Not Available 11/04/2024 14:03:49 10/26/19 25 10/25/2024 CBC w/ auto diff MCH, qn (obs) 25.9 pg low: 27pghi gh: 31pg low Not Available Not Available 11/04/2024 14:03:49 10/26/19 25 10/25/2024 CBC w/ auto diff mean corpuscular hemoglobin concentratio n, qn, RBC 30.9 text: 32.0 - 36.0 g/dL low Not Available Not Available 11/04/2024 14:03:49 10/26/19 25 10/25/2024 CBC w/ auto diff RDW 15.9 % low: 11.5%h igh: 14.5% high Not Available Not Available 11/04/2024 14:03:49 10/26/19 25 10/25/2024 CBC w/ auto diff platelet count, blood 485 text: 130 - 400 x10'3/ uL high Not Available Not Available 11/04/2024 14:03:49 10/26/19 25 10/25/2024 CBC w/ auto diff platelet mean volume, qn, blood (obs) 9.3 text: 9.3 - 12.2 fL Not Available Not Available 11/04/2024 14:03:49 10/26/19 25 10/25/2024 CBC w/ auto diff differential cell count method, blood (obs) AUTOMA GRAEME DIFFER ENTIAL Not Available Not Available 14:03:49 10/26/19 25 10/25/2024 CBC w/ auto diff neutrophils/ 100 leukocytes, automated, blood (obs) 64.8 % Not Available Not Available 11/04/2024 14:03:49 10/26/19 25 10/25/2024 CBC w/ auto diff lymphocytes/ 100 leukocytes, automated, blood (obs) 19.9 % Not Available Not Available 11/04/2024 14:03:49 10/26/19 25 10/25/2024 CBC w/ auto diff monocytes/10 0 leukocytes, automated, blood (obs) 6.3 % Not Available Not Available 11/04/2024 14:03:49 10/26/19 25 10/25/2024 CBC w/ auto diff eosinophils/ 100 leukocytes, automated, blood (obs) 3.3 % Not Available Not Available 11/04/2024 14:03:49 10/26/19 25 10/25/2024 CBC w/ auto diff basophils/10 0 leukocytes, automated, blood (obs) 0.9 % Not Available Not Available 11/04/2024 14:03:49 10/26/19 25 10/25/2024 CBC w/ auto diff immature granulocytes /100 leukocytes, automated, blood (obs) 4.8 % Not Available Not Available 11/04/2024 14:03:49 10/26/19 25 10/25/2024 CBC w/ auto diff neutrophils, count, blood (obs) 12.2 text: 1.80 - 7.70 x10'3/ uL high Not Available Not Available 11/04/2024 14:03:49 10/26/19 25 10/25/2024 CBC w/ auto diff lymphocytes, blood (obs) 3.75 text: 1.00 - 4.80 x10'3/ uL Not Available Not Available 11/04/2024 14:03:49 10/26/19 25 10/25/2024 CBC w/ auto diff monocytes, count, blood (obs) 1.18 text: 0.24 - 0.86 x10'3/ uL high Not Available Not Available 11/04/2024 14:03:49 10/26/19 25 10/25/2024 CBC w/ auto diff eosinophils, quant, blood 0.63 text: 0.04 - 0.36 x10'3/ uL high Not Available Not Available 11/04/2024 14:03:49 10/26/19 25 10/25/2024 CBC w/ auto diff basophils, count, blood (obs) 0.17 text: 0.01 - 0.08 x10'3/ uL high Not Available Not Available 11/04/2024 14:03:49 10/26/19 25 10/25/2024 CBC w/ auto diff immature granulocytes count, blood 0.91 text: 0.00 - 0.49 x10'3/ uL high Not Available Not Available 11/04/2024 14:03:49 10/26/19 25 10/25/2024 CBC w/ auto diff lab interpretati on Abnorm al Not Available Not Available 14:03:49 10/26/19 25 10/25/2024 gluco se, QN, test strip , auto, blood glucose, qn, test strip, auto, blood 89 mg/dL low: 70mg/d Lhigh: 99mg/d L Not Available Not Available 11/04/2024 14:03:49 10/27/19 25 10/26/2024 gluco se, QN, test strip , auto, blood glucose, qn, test strip, auto, blood 91 mg/dL low: 70mg/d Lhigh: 99mg/d L Not Available Not Available 11/04/2024 14:03:50 10/27/19 25 10/26/2024 hepat itis panel (A+B+ C), acute , serum HBsAg (hepatitis B surface Ag), serum NON-RE ACTIVE text: non-re active Not Available Not Available 11/04/2024 14:03:50 10/27/19 25 10/26/2024 hepat itis panel (A+B+ C), acute , serum hbcab (hepatitis B core Ab) IgM, serum NON-RE ACTIVE text: non-re active Not Available Not Available 11/04/2024 14:03:50 10/27/1910/26/2024 hepat itis panel (A+B+ C), acute , serum hepatitis A IgM Ab, serum NON-RE ACTIVE text: non-re active Not Available Not Available 11/04/2024 14:03:50 10/27/1910/26/2024 hepat itis panel (A+B+ C), acute , serum hepatitis C Ab, serum NON-RE ACTIVE text: non-re active Not Available Not Available 11/04/2024 14:03:50 10/27/1910/26/2024 gluco se, QN, test strip , auto, blood glucose, qn, test strip, auto, blood 93 mg/dL low: 70mg/d Lhigh: 99mg/d L Not Available Not Available 11/04/2024 14:03:49 10/27/1910/26/2024 gluco se, QN, test strip , auto, blood glucose, qn, test strip, auto, blood 89 mg/dL low: 70mg/d Lhigh: 99mg/d L Not Available Not Available 11/04/2024 14:03:49 10/27/19 25 10/26/2024 CBC w/ auto diff WBC, auto, blood 16.01 text: 4.5 - 11.0 x10'3/ uL high Not Available Not Available 11/04/2024 14:03:49 10/27/19 25 10/26/2024 CBC w/ auto diff RBC count, blood 3.45 text: 4.20 - 5.40 x10'6/ uL low Not Available Not Available 11/04/2024 14:03:49 10/27/19 25 10/26/2024 CBC w/ auto diff hemoglobin (Hb), blood 9 text: 12.0 - 16.0 g/dL low Not Available Not Available 11/04/2024 14:03:49 10/27/19 25 10/26/2024 CBC w/ auto diff hematocrit, blood 28.9 % low: 38%hig h: 48% low Not Available Not Available 11/04/2024 14:03:49 10/27/19 25 10/26/2024 CBC w/ auto diff MCV, qn (obs) 83.8 text: 81.0 - 99.0 fL Not Available Not Available 11/04/2024 14:03:49 10/27/19 25 10/26/2024 CBC w/ auto diff MCH, qn (obs) 26.1 pg low: 27pghi gh: 31pg low Not Available Not Available 11/04/2024 14:03:49 10/27/19 25 10/26/2024 CBC w/ auto diff mean corpuscular hemoglobin concentratio n, qn, RBC 31.1 text: 32.0 - 36.0 g/dL low Not Available Not Available 11/04/2024 14:03:49 10/27/19 25 10/26/2024 CBC w/ auto diff RDW 15.3 % low: 11.5%h igh: 14.5% high Not Available Not Available 11/04/2024 14:03:49 10/27/19 25 10/26/2024 CBC w/ auto diff platelet count, blood 456 text: 130 - 400 x10'3/ uL high Not Available Not Available 11/04/2024 14:03:49 10/27/19 25 10/26/2024 CBC w/ auto diff platelet mean volume, qn, blood (obs) 8.9 text: 9.3 - 12.2 fL low Not Available Not Available 11/04/2024 14:03:49 10/27/19 25 10/26/2024 CBC w/ auto diff differential cell count method, blood (obs) AUTOMA GRAEME DIFFER ENTIAL Not Available Not Available 14:03:49 10/27/19 25 10/26/2024 CBC w/ auto diff neutrophils/ 100 leukocytes, automated, blood (obs) 67.5 % Not Available Not Available 11/04/2024 14:03:49 10/27/19 25 10/26/2024 CBC w/ auto diff lymphocytes/ 100 leukocytes, automated, blood (obs) 18.6 % Not Available Not Available 11/04/2024 14:03:49 10/27/19 25 10/26/2024 CBC w/ auto diff monocytes/10 0 leukocytes, automated, blood (obs) 6.6 % Not Available Not Available 11/04/2024 14:03:49 10/27/19 25 10/26/2024 CBC w/ auto diff eosinophils/ 100 leukocytes, automated, blood (obs) 2.3 % Not Available Not Available 11/04/2024 14:03:49 10/27/19 25 10/26/2024 CBC w/ auto diff basophils/10 0 leukocytes, automated, blood (obs) 1.1 % Not Available Not Available 11/04/2024 14:03:49 10/27/19 25 10/26/2024 CBC w/ auto diff immature granulocytes /100 leukocytes, automated, blood (obs) 3.9 % Not Available Not Available 11/04/2024 14:03:49 10/27/19 25 10/26/2024 CBC w/ auto diff neutrophils, count, blood (obs) 10.81 text: 1.80 - 7.70 x10'3/ uL high Not Available Not Available 11/04/2024 14:03:49 10/27/19 25 10/26/2024 CBC w/ auto diff lymphocytes, blood (obs) 2.97 text: 1.00 - 4.80 x10'3/ uL Not Available Not Available 11/04/2024 14:03:49 10/27/19 25 10/26/2024 CBC w/ auto diff monocytes, count, blood (obs) 1.06 text: 0.24 - 0.86 x10'3/ uL high Not Available Not Available 11/04/2024 14:03:49 10/27/19 25 10/26/2024 CBC w/ auto diff eosinophils, quant, blood 0.37 text: 0.04 - 0.36 x10'3/ uL high Not Available Not Available 11/04/2024 14:03:49 10/27/19 25 10/26/2024 CBC w/ auto diff basophils, count, blood (obs) 0.17 text: 0.01 - 0.08 x10'3/ uL high Not Available Not Available 11/04/2024 14:03:49 10/27/19 25 10/26/2024 CBC w/ auto diff immature granulocytes count, blood 0.63 text: 0.00 - 0.49 x10'3/ uL high Not Available Not Available 11/04/2024 14:03:49 10/27/1910/26/2024 CBC w/ auto diff lab interpretati on Abnorm al Not Available Not Available 14:03:49 10/27/1910/26/2024 gluco se, QN, test strip , auto, blood glucose, qn, test strip, auto, blood 110 mg/dL low: 70mg/d Lhigh: 99mg/d L high Not Available Not Available 11/04/2024 14:03:49 10/27/1910/26/2024 gluco se, QN, test strip , auto, blood lab interpretati on Abnorm al Not Available Not Available 14:03:49 10/27/1910/26/2024 BMP, serum or plasm a glucose, qn [mass/volume ], serum or plasma 91 text: 70 - 99 mg/dL Not Available Not Available 11/04/2024 14:03:49 10/27/1910/26/2024 BMP, serum or plasm a BUN (blood urea nitrogen), serum or plasma 26 text: 7 - 18 mg/dL high Not Available Not Available 11/04/2024 14:03:49 10/27/1910/26/2024 BMP, serum or plasm a creatinine, serum or plasma 7.74 text: 0.55 - 1.02 mg/dL critical high NOT SAUCEDA D PER CRITI BERTRAND VALUE POLIC Y Not Available Not Available 11/04/2024 14:03:49 10/27/1910/26/2024 BMP, serum or plasm a sodium, serum or plasma 135 text: 136 - 145 mmol/L low Not Available Not Available 11/04/2024 14:03:49 10/27/1910/26/2024 BMP, serum or plasm a potassium, serum or plasma 4.3 text: 3.5 - 5.1 mmol/L Not Available Not Available 11/04/2024 14:03:49 10/27/1910/26/2024 BMP, serum or plasm a chloride, serum or plasma 99 text: 97 - 115 mmol/L Not Available Not Available 11/04/2024 14:03:49 10/27/1910/26/2024 BMP, serum or plasm a CO2, (carbon dioxide), total, serum or plasma 24.7 text: 21 - 32 mmol/L Not Available Not Available 11/04/2024 14:03:49 10/27/19 25 10/26/2024 BMP, serum or plasm a calcium, serum or plasma 8.1 text: 8.5 - 10.1 mg/dL low Not Available Not Available 11/04/2024 14:03:49 10/27/19 25 10/26/2024 BMP, serum or plasm a anion gap, serum or plasma 11.3 text: 2 - 10 mmol/L high Not Available Not Available 11/04/2024 14:03:49 10/27/19 25 10/26/2024 BMP, serum or plasm a BUN/creatini ne, ratio, serum 3.4 low: 6high: 26 low Not Available Not Available 11/04/2024 14:03:49 10/27/19 25 10/26/2024 BMP, serum or plasm a glomerular filtration rate/1.73 sq M predicted, qn, creatinine based formula (CKD-epi 2020), serum or plasma or blood 6 text: >90 mL/min /1.73 M2 low NOTE: eGFR is not calcu lated for patie nts <18 years of age or gende r unkno wn. This is an estim ated GFR calcu latio n using the new CKD EPI creat inine equat ion witho ut race and so does not requi re a corre ction facto r for race. This estim ated GFR shoul d not be used for calcu latin g drug doses . Not Available Not Available 11/04/2024 14:03:49 10/27/19 25 10/26/2024 BMP, serum or plasm a lab interpretati on Abnorm al Not Available Not Available 14:03:49 10/28/19 25 10/27/2024 gluco se, QN, test strip , auto, blood glucose, qn, test strip, auto, blood 118 mg/dL low: 70mg/d Lhigh: 99mg/d L high Not Available Not Available 11/04/2024 14:03:50 10/28/19 25 10/27/2024 gluco se, QN, test strip , auto, blood lab interpretati on Abnorm al Not Available Not Available 14:03:50 10/28/19 25 10/27/2024 gluco se, QN, test strip , auto, blood glucose, qn, test strip, auto, blood 193 mg/dL low: 70mg/d Lhigh: 99mg/d L high Not Available Not Available 11/04/2024 14:03:50 10/28/19 25 10/27/2024 gluco se, QN, test strip , auto, blood lab interpretati on Abnorm al Not Available Not Available 14:03:50 10/28/19 25 10/27/2024 gluco se, QN, test strip , auto, blood glucose, qn, test strip, auto, blood 105 mg/dL low: 70mg/d Lhigh: 99mg/d L high Not Available Not Available 11/04/2024 14:03:50 10/28/19 25 10/27/2024 gluco se, QN, test strip , auto, blood lab interpretati on Abnorm al Not Available Not Available 14:03:50 10/28/19 25 10/27/2024 hepat itis B surfa ce Ab, quali tativ e, serum hepatitis B surface Ab, qualitative, serum REACTI VE Not Available Not Available 14:03:50 10/28/19 25 10/27/2024 hepat itis B virus core Ab, quali tativ e, serum hepatitis B virus core Ab, qualitative, serum NON-RE ACTIVE text: non-re active Not Available Not Available 11/04/2024 14:03:50 10/28/19 25 10/27/2024 hbcab (hepa titis B core Ab) igm, serum hbcab (hepatitis B core Ab) IgM, serum NON-RE ACTIVE text: non-re active Not Available Not Available 11/04/2024 14:03:50 10/28/19 25 10/27/2024 gluco se, QN, test strip , auto, blood glucose, qn, test strip, auto, blood 98 mg/dL low: 70mg/d Lhigh: 99mg/d L Not Available Not Available 11/04/2024 14:03:50 0910/28/2024 gluco se, QN, test strip , auto, blood glucose, qn, test strip, auto, blood 146 mg/dL low: 70mg/d Lhigh: 99mg/d L high Not Available Not Available 11/04/2024 14:03:51 10/29/1910/28/2024 gluco se, QN, test strip , auto, blood lab interpretati on Abnorm al Not Available Not Available 14:03:51 10/29/1910/28/2024 gluco se, QN, test strip , auto, blood glucose, qn, test strip, auto, blood 198 mg/dL low: 70mg/d Lhigh: 99mg/d L high Not Available Not Available 11/04/2024 14:03:51 10/29/1910/28/2024 gluco se, QN, test strip , auto, blood lab interpretati on Abnorm al Not Available Not Available 14:03:51 10/29/1910/28/2024 BMP, serum or plasm a glucose, qn [mass/volume ], serum or plasma 184 text: 70 - 99 mg/dL high Not Available Not Available 11/04/2024 14:03:50 10/29/1910/28/2024 BMP, serum or plasm a BUN (blood urea nitrogen), serum or plasma 21 text: 7 - 18 mg/dL high Not Available Not Available 11/04/2024 14:03:50 10/29/1910/28/2024 BMP, serum or plasm a creatinine, serum or plasma 7.35 text: 0.55 - 1.02 mg/dL critical high Mack remy(s) Farrukh bell at: 14:28 :10 on 10/28 by: KAIN BROWN SON to and read back by:CECI ORTIZ Not Available Not Available 11/04/2024 14:03:50 10/29/1910/28/2024 BMP, serum or plasm a sodium, serum or plasma 136 text: 136 - 145 mmol/L Not Available Not Available 11/04/2024 14:03:50 10/29/19 25 10/28/2024 BMP, serum or plasm a potassium, serum or plasma 3.9 text: 3.5 - 5.1 mmol/L Not Available Not Available 11/04/2024 14:03:50 10/29/1910/28/2024 BMP, serum or plasm a chloride, serum or plasma 98 text: 97 - 115 mmol/L Not Available Not Available 11/04/2024 14:03:50 10/29/1910/28/2024 BMP, serum or plasm a CO2, (carbon dioxide), total, serum or plasma 31.8 text: 21 - 32 mmol/L Not Available Not Available 11/04/2024 14:03:50 10/29/1910/28/2024 BMP, serum or plasm a calcium, serum or plasma 8.8 text: 8.5 - 10.1 mg/dL Not Available Not Available 11/04/2024 14:03:50 10/29/1910/28/2024 BMP, serum or plasm a anion gap, serum or plasma 6.2 text: 2 - 10 mmol/L Not Available Not Available 11/04/2024 14:03:50 10/29/1910/28/2024 BMP, serum or plasm a BUN/creatini ne, ratio, serum 2.9 low: 6high: 26 low Not Available Not Available 11/04/2024 14:03:50 10/29/1910/28/2024 BMP, serum or plasm a glomerular filtration rate/1.73 sq M predicted, qn, creatinine based formula (CKD-epi 2020), serum or plasma or blood 6 text: >90 mL/min /1.73 M2 low NOTE: eGFR is not calcu lated for patie nts <18 years of age or gende r unkno wn. This is an estim ated GFR calcu latio n using the new CKD EPI creat inine equat ion witho ut race and so does not requi re a corre ction facto r for race. This estim ated GFR shoul d not be used for calcu latin g drug doses . Not Available Not Available 11/04/2024 14:03:50 10/29/1910/28/2024 BMP, serum or plasm a lab interpretati on Abnorm al Not Available Not Available 14:03:50 10/29/1910/28/2024 CBC w/ auto diff WBC, auto, blood 14.95 text: 4.5 - 11.0 x10'3/ uL high Not Available Not Available 11/04/2024 14:03:50 10/29/19 25 10/28/2024 CBC w/ auto diff RBC count, blood 3.58 text: 4.20 - 5.40 x10'6/ uL low Not Available Not Available 11/04/2024 14:03:50 10/29/19 25 10/28/2024 CBC w/ auto diff hemoglobin (Hb), blood 9.1 text: 12.0 - 16.0 g/dL low Not Available Not Available 11/04/2024 14:03:50 10/29/19 25 10/28/2024 CBC w/ auto diff hematocrit, blood 29.7 % low: 38%hig h: 48% low Not Available Not Available 11/04/2024 14:03:50 10/29/19 25 10/28/2024 CBC w/ auto diff MCV, qn (obs) 83 text: 81.0 - 99.0 fL Not Available Not Available 11/04/2024 14:03:50 10/29/19 25 10/28/2024 CBC w/ auto diff MCH, qn (obs) 25.4 pg low: 27pghi gh: 31pg low Not Available Not Available 11/04/2024 14:03:50 10/29/19 25 10/28/2024 CBC w/ auto diff mean corpuscular hemoglobin concentratio n, qn, RBC 30.6 text: 32.0 - 36.0 g/dL low Not Available Not Available 11/04/2024 14:03:50 10/29/19 25 10/28/2024 CBC w/ auto diff RDW 15.4 % low: 11.5%h igh: 14.5% high Not Available Not Available 11/04/2024 14:03:50 10/29/19 25 10/28/2024 CBC w/ auto diff platelet count, blood 429 text: 130 - 400 x10'3/ uL high Not Available Not Available 11/04/2024 14:03:50 10/29/19 25 10/28/2024 CBC w/ auto diff platelet mean volume, qn, blood (obs) 8.8 text: 9.3 - 12.2 fL low Not Available Not Available 11/04/2024 14:03:50 10/29/19 25 10/28/2024 CBC w/ auto diff differential cell count method, blood (obs) AUTOMA GRAEME DIFFER ENTIAL Not Available Not Available 14:03:50 10/29/19 25 10/28/2024 CBC w/ auto diff neutrophils/ 100 leukocytes, automated, blood (obs) 74.3 % Not Available Not Available 11/04/2024 14:03:50 10/29/19 25 10/28/2024 CBC w/ auto diff lymphocytes/ 100 leukocytes, automated, blood (obs) 13.7 % Not Available Not Available 11/04/2024 14:03:50 10/29/19 25 10/28/2024 CBC w/ auto diff monocytes/10 0 leukocytes, automated, blood (obs) 6.4 % Not Available Not Available 11/04/2024 14:03:50 10/29/19 25 10/28/2024 CBC w/ auto diff eosinophils/ 100 leukocytes, automated, blood (obs) 2.6 % Not Available Not Available 11/04/2024 14:03:50 10/29/19 25 10/28/2024 CBC w/ auto diff basophils/10 0 leukocytes, automated, blood (obs) 1.1 % Not Available Not Available 11/04/2024 14:03:50 10/29/19 25 10/28/2024 CBC w/ auto diff immature granulocytes /100 leukocytes, automated, blood (obs) 1.9 % Not Available Not Available 11/04/2024 14:03:50 10/29/19 25 10/28/2024 CBC w/ auto diff neutrophils, count, blood (obs) 11.1 text: 1.80 - 7.70 x10'3/ uL high Not Available Not Available 11/04/2024 14:03:50 10/29/19 25 10/28/2024 CBC w/ auto diff lymphocytes, blood (obs) 2.05 text: 1.00 - 4.80 x10'3/ uL Not Available Not Available 11/04/2024 14:03:50 10/29/19 25 10/28/2024 CBC w/ auto diff monocytes, count, blood (obs) 0.96 text: 0.24 - 0.86 x10'3/ uL high Not Available Not Available 11/04/2024 14:03:50 10/29/19 25 10/28/2024 CBC w/ auto diff eosinophils, quant, blood 0.39 text: 0.04 - 0.36 x10'3/ uL high Not Available Not Available 11/04/2024 14:03:50 10/29/19 25 10/28/2024 CBC w/ auto diff basophils, count, blood (obs) 0.16 text: 0.01 - 0.08 x10'3/ uL high Not Available Not Available 11/04/2024 14:03:50 10/29/19 25 10/28/2024 CBC w/ auto diff immature granulocytes count, blood 0.29 text: 0.00 - 0.49 x10'3/ uL Not Available Not Available 11/04/2024 14:03:50 10/29/19 25 10/28/2024 CBC w/ auto diff lab interpretati on Abnorm al Not Available Not Available 14:03:50 10/29/19 25 10/28/2024 gluco se, QN, test strip , auto, blood glucose, qn, test strip, auto, blood 171 mg/dL low: 70mg/d Lhigh: 99mg/d L high Not Available Not Available 11/04/2024 14:03:50 10/29/19 25 10/28/2024 gluco se, QN, test strip , auto, blood lab interpretati on Abnorm al Not Available Not Available 14:03:50 10/29/19 25 10/28/2024 gluco se, QN, test strip , auto, blood glucose, qn, test strip, auto, blood 131 mg/dL low: 70mg/d Lhigh: 99mg/d L high Not Available Not Available 11/04/2024 14:03:50 10/29/19 25 10/28/2024 gluco se, QN, test strip , auto, blood lab interpretati on Abnorm al Not Available Not Available 14:03:50 10/29/19 25 10/30/2024 cultu re, genit al, bacte rial specimen source identified (obs) VAGINA L SPECIM EN Not Available Not Available 14:03:50 10/29/1910/30/2024 cultu re, genit al, bacte rial special requests NO SPECIA L REQUES T Not Available Not Available 14:03:50 10/29/19 25 10/30/2024 cultu re, genit al, bacte rial gram stain NEGATI VE FOR BACTER IAL VAGINO SIS Not Available Not Available 14:03:50 10/29/19 25 10/30/2024 cultu re, genit al, bacte rial gram stain NO YEAST SEEN Not Available Not Available 14:03:50 10/29/19 25 10/30/2024 cultu re, genit al, bacte rial culture, bacterial LIGHT GROWTH OF NORMAL SANG PRESEN T Not Available Not Available 14:03:50 10/30/19 25 10/29/2024 BMP, serum or plasm a glucose, qn [mass/volume ], serum or plasma 101 text: 70 - 99 mg/dL high Not Available Not Available 11/04/2024 14:03:51 10/30/1910/29/2024 BMP, serum or plasm a BUN (blood urea nitrogen), serum or plasma 25 text: 7 - 18 mg/dL high Not Available Not Available 11/04/2024 14:03:51 10/30/19 25 10/29/2024 BMP, serum or plasm a creatinine, serum or plasma 8.79 text: 0.55 - 1.02 mg/dL critical high NOT SAUCEDA D PER CRITI BERTRAND VALUE POLIC Y Not Available Not Available 11/04/2024 14:03:51 10/30/1910/29/2024 BMP, serum or plasm a sodium, serum or plasma 137 text: 136 - 145 mmol/L Not Available Not Available 11/04/2024 14:03:51 10/30/19 25 10/29/2024 BMP, serum or plasm a potassium, serum or plasma 3.8 text: 3.5 - 5.1 mmol/L Not Available Not Available 11/04/2024 14:03:51 10/30/1910/29/2024 BMP, serum or plasm a chloride, serum or plasma 101 text: 97 - 115 mmol/L Not Available Not Available 11/04/2024 14:03:51 10/30/1910/29/2024 BMP, serum or plasm a CO2, (carbon dioxide), total, serum or plasma 31.6 text: 21 - 32 mmol/L Not Available Not Available 11/04/2024 14:03:51 10/30/1910/29/2024 BMP, serum or plasm a calcium, serum or plasma 8.4 text: 8.5 - 10.1 mg/dL low Not Available Not Available 11/04/2024 14:03:51 10/30/1910/29/2024 BMP, serum or plasm a anion gap, serum or plasma 4.4 text: 2 - 10 mmol/L Not Available Not Available 11/04/2024 14:03:51 10/30/1910/29/2024 BMP, serum or plasm a BUN/creatini ne, ratio, serum 2.8 low: 6high: 26 low Not Available Not Available 11/04/2024 14:03:51 10/30/1910/29/2024 BMP, serum or plasm a glomerular filtration rate/1.73 sq M predicted, qn, creatinine based formula (CKD-epi 2020), serum or plasma or blood 5 text: >90 mL/min /1.73 M2 low NOTE: eGFR is not calcu lated for patie nts <18 years of age or gende r unkno wn. This is an estim ated GFR calcu latio n using the new CKD EPI creat inine equat ion witho ut race and so does not requi re a corre ction facto r for race. This estim ated GFR shoul d not be used for calcu latin g drug doses . Not Available Not Available 11/04/2024 14:03:51 10/30/1910/29/2024 BMP, serum or plasm a lab interpretati on Abnorm al Not Available Not Available 14:03:51 10/30/19 25 10/29/2024 CBC w/ auto diff WBC, auto, blood 12.68 text: 4.5 - 11.0 x10'3/ uL high Not Available Not Available 11/04/2024 14:03:51 10/30/19 25 10/29/2024 CBC w/ auto diff RBC count, blood 3.28 text: 4.20 - 5.40 x10'6/ uL low Not Available Not Available 11/04/2024 14:03:51 10/30/19 25 10/29/2024 CBC w/ auto diff hemoglobin (Hb), blood 8.4 text: 12.0 - 16.0 g/dL low Not Available Not Available 11/04/2024 14:03:51 10/30/19 25 10/29/2024 CBC w/ auto diff hematocrit, blood 27.2 % low: 38%hig h: 48% low Not Available Not Available 11/04/2024 14:03:51 10/30/19 25 10/29/2024 CBC w/ auto diff MCV, qn (obs) 82.9 text: 81.0 - 99.0 fL Not Available Not Available 11/04/2024 14:03:51 10/30/19 25 10/29/2024 CBC w/ auto diff MCH, qn (obs) 25.6 pg low: 27pghi gh: 31pg low Not Available Not Available 11/04/2024 14:03:51 10/30/19 25 10/29/2024 CBC w/ auto diff mean corpuscular hemoglobin concentratio n, qn, RBC 30.9 text: 32.0 - 36.0 g/dL low Not Available Not Available 11/04/2024 14:03:51 10/30/19 25 10/29/2024 CBC w/ auto diff RDW 15.4 % low: 11.5%h igh: 14.5% high Not Available Not Available 11/04/2024 14:03:51 10/30/19 25 10/29/2024 CBC w/ auto diff platelet count, blood 405 text: 130 - 400 x10'3/ uL high Not Available Not Available 11/04/2024 14:03:51 10/30/19 25 10/29/2024 CBC w/ auto diff platelet mean volume, qn, blood (obs) 9 text: 9.3 - 12.2 fL low Not Available Not Available 11/04/2024 14:03:51 10/30/19 25 10/29/2024 CBC w/ auto diff differential cell count method, blood (obs) AUTOMA GRAEME DIFFER ENTIAL Not Available Not Available 14:03:51 10/30/19 25 10/29/2024 CBC w/ auto diff neutrophils/ 100 leukocytes, automated, blood (obs) 63.1 % Not Available Not Available 11/04/2024 14:03:51 10/30/19 25 10/29/2024 CBC w/ auto diff lymphocytes/ 100 leukocytes, automated, blood (obs) 21 % Not Available Not Available 11/04/2024 14:03:51 10/30/19 25 10/29/2024 CBC w/ auto diff monocytes/10 0 leukocytes, automated, blood (obs) 8.4 % Not Available Not Available 11/04/2024 14:03:51 10/30/19 25 10/29/2024 CBC w/ auto diff eosinophils/ 100 leukocytes, automated, blood (obs) 4.5 % Not Available Not Available 11/04/2024 14:03:51 10/30/19 25 10/29/2024 CBC w/ auto diff basophils/10 0 leukocytes, automated, blood (obs) 1.3 % Not Available Not Available 11/04/2024 14:03:51 10/30/19 25 10/29/2024 CBC w/ auto diff immature granulocytes /100 leukocytes, automated, blood (obs) 1.7 % Not Available Not Available 11/04/2024 14:03:51 10/30/19 25 10/29/2024 CBC w/ auto diff neutrophils, count, blood (obs) 8 text: 1.80 - 7.70 x10'3/ uL high Not Available Not Available 11/04/2024 14:03:51 10/30/19 25 10/29/2024 CBC w/ auto diff lymphocytes, blood (obs) 2.66 text: 1.00 - 4.80 x10'3/ uL Not Available Not Available 11/04/2024 14:03:51 10/30/19 25 10/29/2024 CBC w/ auto diff monocytes, count, blood (obs) 1.07 text: 0.24 - 0.86 x10'3/ uL high Not Available Not Available 11/04/2024 14:03:51 10/30/19 25 10/29/2024 CBC w/ auto diff eosinophils, quant, blood 0.57 text: 0.04 - 0.36 x10'3/ uL high Not Available Not Available 11/04/2024 14:03:51 10/30/19 25 10/29/2024 CBC w/ auto diff basophils, count, blood (obs) 0.16 text: 0.01 - 0.08 x10'3/ uL high Not Available Not Available 11/04/2024 14:03:51 10/30/19 25 10/29/2024 CBC w/ auto diff immature granulocytes count, blood 0.22 text: 0.00 - 0.49 x10'3/ uL Not Available Not Available 11/04/2024 14:03:51 10/30/19 25 10/29/2024 CBC w/ auto diff lab interpretati on Abnorm al Not Available Not Available 14:03:51 10/30/19 25 10/29/2024 gluco se, QN, test strip , auto, blood glucose, qn, test strip, auto, blood 101 mg/dL low: 70mg/d Lhigh: 99mg/d L high Not Available Not Available 11/04/2024 14:03:51 10/30/19 25 10/29/2024 gluco se, QN, test strip , auto, blood lab interpretati on Abnorm al Not Available Not Available 14:03:51 10/31/19 25 10/30/2024 CMP, serum or plasm a glucose, qn [mass/volume ], serum or plasma 116 text: 70 - 99 mg/dL high Not Available Not Available 11/04/2024 14:00:53 10/31/19 25 10/30/2024 CMP, serum or plasm a BUN (blood urea nitrogen), serum or plasma 17 text: 7 - 18 mg/dL Not Available Not Available 11/04/2024 14:00:53 10/31/19 25 10/30/2024 CMP, serum or plasm a creatinine, serum or plasma 6.88 text: 0.55 - 1.02 mg/dL critical high Mack remy(tracie) Farrukh bell at: 15:34 :22 on 10/30 by: KAIN BROWN SON to and read back by:KILEY MCKENZIE WILLAMS LLO Not Available Not Available 11/04/2024 14:00:53 10/31/1910/30/2024 CMP, serum or plasm a sodium, serum or plasma 138 text: 136 - 145 mmol/L Not Available Not Available 11/04/2024 14:00:53 10/31/1910/30/2024 CMP, serum or plasm a potassium, serum or plasma 3.9 text: 3.5 - 5.1 mmol/L Not Available Not Available 11/04/2024 14:00:53 10/31/1910/30/2024 CMP, serum or plasm a chloride, serum or plasma 100 text: 97 - 115 mmol/L Not Available Not Available 11/04/2024 14:00:53 10/31/1910/30/2024 CMP, serum or plasm a CO2, (carbon dioxide), total, serum or plasma 33.3 text: 21 - 32 mmol/L high Not Available Not Available 11/04/2024 14:00:53 10/31/1910/30/2024 CMP, serum or plasm a calcium, serum or plasma 8.9 text: 8.5 - 10.1 mg/dL Not Available Not Available 11/04/2024 14:00:53 10/31/1910/30/2024 CMP, serum or plasm a bilirubin, total, serum or plasma 0.5 text: 0.2 - 1.2 mg/dL THIS ASSAY IS NOT RECOM SILVINA D FOR PATIE NTS UNDER GOING TREAT MENT WITH ELTRO MBOPA G DUE TO THE POTEN TIAL FOR FALSE LY ELEVA GRAEME RESUL TS. Not Available Not Available 11/04/2024 14:00:53 10/31/1910/30/2024 CMP, serum or plasm a protein, total, serum 8 text: 6.4 - 8.2 g/dL Not Available Not Available 11/04/2024 14:00:53 10/31/1910/30/2024 CMP, serum or plasm a albumin, serum or plasma 1.9 text: 3.4 - 5.0 g/dL low Not Available Not Available 11/04/2024 14:00:53 10/31/1910/30/2024 CMP, serum or plasm a AST/SGOT (aspartate aminotransfe rase), serum or plasma 29 U/L low: 15U/Lh igh: 37U/L Not Available Not Available 11/04/2024 14:00:53 10/31/1910/30/2024 CMP, serum or plasm a ALT (alanine aminotransfe rase), serum or plasma 18 U/L low: 14U/Lh igh: 55U/L Not Available Not Available 11/04/2024 14:00:53 10/31/1910/30/2024 CMP, serum or plasm a alkaline phosphatase, serum or plasma 311 U/L low: 50U/Lh igh: 136U/L high Not Available Not Available 11/04/2024 14:00:53 10/31/1910/30/2024 CMP, serum or plasm a anion gap, serum or plasma 4.7 text: 2 - 10 mmol/L Not Available Not Available 11/04/2024 14:00:53 10/31/1910/30/2024 CMP, serum or plasm a BUN/creatini ne, ratio, serum 2.5 low: 6high: 26 low Not Available Not Available 11/04/2024 14:00:53 10/31/1910/30/2024 CMP, serum or plasm a albumin/glob ulin, ratio, serum 0.3 text: 1.0 - 2.0 ratio low Not Available Not Available 11/04/2024 14:00:53 10/31/1910/30/2024 CMP, serum or plasm a glomerular filtration rate/1.73 sq M predicted, qn, creatinine based formula (CKD-epi 2020), serum or plasma or blood 7 text: >90 mL/min /1.73 M2 low NOTE: eGFR is not calcu lated for patie nts <18 years of age or gende r unkno wn. This is an estim ated GFR calcu latio n using the new CKD EPI creat inine equat ion witho ut race and so does not requi re a corre ction facto r for race. This estim ated GFR shoul d not be used for calcu latin g drug doses . Not Available Not Available 11/04/2024 14:00:53 10/31/1910/30/2024 CMP, serum or plasm a lab interpretati on Abnorm al Not Available Not Available 14:00:53 10/31/1910/30/2024 CBC w/ auto diff WBC, auto, blood 13.14 text: 4.5 - 11.0 x10'3/ uL high Not Available Not Available 11/04/2024 14:00:52 10/31/1910/30/2024 CBC w/ auto diff RBC count, blood 3.53 text: 4.20 - 5.40 x10'6/ uL low Not Available Not Available 11/04/2024 14:00:52 10/31/1910/30/2024 CBC w/ auto diff hemoglobin (Hb), blood 8.9 text: 12.0 - 16.0 g/dL low Not Available Not Available 11/04/2024 14:00:52 10/31/1910/30/2024 CBC w/ auto diff hematocrit, blood 29.8 % low: 38%hig h: 48% low Not Available Not Available 11/04/2024 14:00:52 10/31/1910/30/2024 CBC w/ auto diff MCV, qn (obs) 84.4 text: 81.0 - 99.0 fL Not Available Not Available 11/04/2024 14:00:52 10/31/1910/30/2024 CBC w/ auto diff MCH, qn (obs) 25.2 pg low: 27pghi gh: 31pg low Not Available Not Available 11/04/2024 14:00:52 10/31/1910/30/2024 CBC w/ auto diff mean corpuscular hemoglobin concentratio n, qn, RBC 29.9 text: 32.0 - 36.0 g/dL low Not Available Not Available 11/04/2024 14:00:52 10/31/1910/30/2024 CBC w/ auto diff RDW 15.7 % low: 11.5%h igh: 14.5% high Not Available Not Available 11/04/2024 14:00:52 10/31/19 25 10/30/2024 CBC w/ auto diff platelet count, blood 464 text: 130 - 400 x10'3/ uL high Not Available Not Available 11/04/2024 14:00:52 10/31/19 25 10/30/2024 CBC w/ auto diff platelet mean volume, qn, blood (obs) 9.7 text: 9.3 - 12.2 fL Not Available Not Available 11/04/2024 14:00:52 10/31/19 25 10/30/2024 CBC w/ auto diff differential cell count method, blood (obs) AUTOMA GRAEME DIFFER ENTIAL Not Available Not Available 14:00:52 10/31/19 25 10/30/2024 CBC w/ auto diff neutrophils/ 100 leukocytes, automated, blood (obs) 66.7 % Not Available Not Available 11/04/2024 14:00:52 10/31/19 25 10/30/2024 CBC w/ auto diff lymphocytes/ 100 leukocytes, automated, blood (obs) 20.5 % Not Available Not Available 11/04/2024 14:00:52 10/31/19 25 10/30/2024 CBC w/ auto diff monocytes/10 0 leukocytes, automated, blood (obs) 7.3 % Not Available Not Available 11/04/2024 14:00:52 10/31/19 25 10/30/2024 CBC w/ auto diff eosinophils/ 100 leukocytes, automated, blood (obs) 3.5 % Not Available Not Available 11/04/2024 14:00:52 10/31/19 25 10/30/2024 CBC w/ auto diff basophils/10 0 leukocytes, automated, blood (obs) 1.2 % Not Available Not Available 11/04/2024 14:00:52 10/31/19 25 10/30/2024 CBC w/ auto diff immature granulocytes /100 leukocytes, automated, blood (obs) 0.8 % Not Available Not Available 11/04/2024 14:00:52 10/31/19 25 10/30/2024 CBC w/ auto diff neutrophils, count, blood (obs) 8.75 text: 1.80 - 7.70 x10'3/ uL high Not Available Not Available 11/04/2024 14:00:52 10/31/19 25 10/30/2024 CBC w/ auto diff lymphocytes, blood (obs) 2.7 text: 1.00 - 4.80 x10'3/ uL Not Available Not Available 11/04/2024 14:00:52 10/31/19 25 10/30/2024 CBC w/ auto diff monocytes, count, blood (obs) 0.96 text: 0.24 - 0.86 x10'3/ uL high Not Available Not Available 11/04/2024 14:00:52 10/31/19 25 10/30/2024 CBC w/ auto diff eosinophils, quant, blood 0.46 text: 0.04 - 0.36 x10'3/ uL high Not Available Not Available 11/04/2024 14:00:52 10/31/19 25 10/30/2024 CBC w/ auto diff basophils, count, blood (obs) 0.16 text: 0.01 - 0.08 x10'3/ uL high Not Available Not Available 11/04/2024 14:00:52 10/31/19 25 10/30/2024 CBC w/ auto diff immature granulocytes count, blood 0.11 text: 0.00 - 0.49 x10'3/ uL Not Available Not Available 11/04/2024 14:00:52 10/31/1910/30/2024 CBC w/ auto diff lab interpretati on Abnorm al Not Available Not Available 14:00:52 10/31/19 25 10/30/2024 CK (crea robert kinas e), total , serum CK (creatine kinase), total, serum 197 U/L low: 21U/Lh igh: 215U/L Not Available Not Available 11/04/2024 14:00:52 11/03/1911/02/2024 alumi num, serum aluminum, serum 10 text: 0.0-9. 0 Not Available Not Available 11/04/2024 14:05:53 11/04/19 25 11/03/2024 HbA1c (hemo globi n A1c), blood HbA1C (hemoglobin A1C), blood 5.9 text: 0.0-5. 6 high Not Available Not Available 11/04/2024 14:05:51 11/04/19 25 11/03/2024 plate lets, auto, blood platelets, auto, blood 424 text: 140.0- 450.0 Not Available Not Available 11/04/2024 14:05:51 11/04/19 25 11/03/2024 retic ulocy te count , auto, blood reticulocyte count, auto, blood 2.02 text: 0.7-2. 5 Not Available Not Available 11/04/2024 14:05:51 11/04/19 25 11/03/2024 hemog lobin (Hb), blood hemoglobin (Hb), blood 8.4 text: 12.0-1 6.0 low Not Available Not Available 11/04/2024 14:05:52 11/04/19 25 11/03/2024 eosin ophil s, auto, blood , absol algaaciq eosinophils, auto, blood, absolute 566 text: 0.0-70 0.0 Not Available Not Available 11/04/2024 14:05:52 11/04/1911/03/2024 hemat ocrit , autom ated count , blood hematocrit, automated count, blood 29.7 text: 37.0-4 7.0 low Not Available Not Available 11/04/2024 14:05:52 11/04/1911/03/2024 wbc, auto, blood WBC, auto, blood 12.6 text: 4.0-11 .0 high Not Available Not Available 11/04/2024 14:05:52 11/04/1911/03/2024 mcv, blood MCV, blood 88.1 text: 80.0-1 00.0 Not Available Not Available 11/04/2024 14:05:51 11/04/19 25 11/03/2024 RBC count , blood RBC count, blood 3.37 text: 3.85-5 .2 low Not Available Not Available 11/04/2024 14:05:51 11/04/19 25 11/03/2024 tanya stero l, total , serum cholesterol, total, serum 111 text: 0.0-19 9.0 Not Available Not Available 11/04/2024 14:05:53 11/04/1911/03/2024 album in, QN, BCG dye, serum or plasm a albumin, qn, bcg dye, serum or plasma 2.7 text: 3.2-4. 8 low Not Available Not Available 11/04/2024 14:05:53 11/04/19 25 11/03/2024 Lacta te dehyd rogen ase [Enzy matic activ ity/v olume ] in Serum or Plasm a lactate dehydrogenas e [enzymatic activity/vol ume] in serum or plasma 386 text: 120.0- 246.0 high Not Available Not Available 11/04/2024 14:05:53 11/04/19 25 11/03/2024 gluco se, QN [mass /volu me], serum or plasm a glucose, qn [mass/volume ], serum or plasma 106 text: 74.0-1 06.0 Not Available Not Available 11/04/2024 14:05:53 11/04/19 25 11/03/2024 prote in, total , serum protein, total, serum 6.5 text: 5.7-8. 2 Not Available Not Available 11/04/2024 14:05:53 11/04/19 25 11/03/2024 bun (bloo d urea nitro gen), serum or plasm a BUN (blood urea nitrogen), serum or plasma 36 text: 9.0-23 .0 high Not Available Not Available 11/04/2024 14:05:53 11/04/19 25 11/03/2024 prote in, total , serum protein, total, serum 102 text: 0.0-14 9.0 Not Available Not Available 11/04/2024 14:05:52 11/04/19 25 11/03/2024 ALT (rolanda ine amino trans feras e), serum or plasm a ALT (alanine aminotransfe rase), serum or plasma 15 text: 10.0-4 9.0 Not Available Not Available 11/04/2024 14:05:52 11/04/19 25 11/03/2024 creat inine , serum or plasm a creatinine, serum or plasma 9.76 text: 0.55-1 .02 high Not Available Not Available 11/04/2024 14:05:52 11/04/19 25 11/03/2024 phosp horus , serum or plasm a phosphorus, serum or plasma 3.7 text: 2.4-5. 1 Not Available Not Available 11/04/2024 14:05:52 11/04/19 25 11/03/2024 HDL tanya stero l, serum HDL cholesterol, serum 52 text: 40.0-6 0.0 Not Available Not Available 11/04/2024 14:05:52 11/04/19 25 11/03/2024 bicar bonat e, quant , serum bicarbonate, quant, serum 32 text: 20.0-3 1.0 high Not Available Not Available 11/04/2024 14:05:52 11/04/19 25 11/03/2024 AST/S GOT (aspa rtate amino trans feras e), serum or plasm a AST/SGOT (aspartate aminotransfe rase), serum or plasma 18 text: 0.0-33 .0 Not Available Not Available 11/04/2024 14:05:52 11/04/19 25 11/03/2024 bilir ubin, total , serum or plasm a bilirubin, total, serum or plasma 0.2 text: 0.3-1. 2 low Not Available Not Available 11/04/2024 14:05:52 11/04/19 25 11/03/2024 alkal ine phosp hatas e, serum or plasm a alkaline phosphatase, serum or plasma 277 text: 46.0-1 16.0 high Not Available Not Available 11/04/2024 14:05:52 11/04/1911/03/2024 cortez tin, serum or plasm a ferritin, serum or plasma 824 text: 7.0-27 1.0 high Not Available Not Available 11/04/2024 14:05:53 11/04/19 25 11/03/2024 PTH (para thyro id hormo ne), intac t, serum or plasm a PTH (parathyroid hormone), intact, serum or plasma 759 text: 18.0-8 0.0 high Not Available Not Available 11/04/2024 14:05:53 11/04/19 25 11/03/2024 BUN, post- dialy sis, serum BUN, post-dialysi s, serum 13 text: 9.0-23 .0 Not Available Not Available 11/04/2024 14:05:53 06/16/19 23 06/15/2022 XR, abdom en No observ ation record ed. [facility] [address], [place], [place], [id number], 10/06/2022 15:11:10 06/16/19 23 06/14/2022 CT, abdom en + pelvi s, w/o contr ast No observ ation record ed. [place] [id number] [facility] [address], [place], [address], 10/06/2022 15:11:10 11/02/19 23 11/01/2022 XR, chest , 1 view No observ ation record ed. [place] [id number] [facility] [address], [place], [address], 11/05/2022 17:56:22 01/10/20 23 12/25/2022 MRI, abdom en + pelvi s, w/wo contr ast No observ ation record ed. [facility] Advanced [facility] - Gynecologic Oncology [facility] [place], [address], 01/12/2023 10:36:39 03/19/19 24 03/17/2023 MAMMO , scree lexx, bilat eral No observ ation record ed. [facility] [address] [place], [address], 03/24/2023 14:16:33 06/19/19 24 06/19/2023 US, duple x, arter ial, upper extre mity No observ ation record ed. [facility] [address] [facility] [address], [place], [address], 07/02/2023 11:53:57 11/15/1911/14/2024 imagi ng/di agnos tic resul t No observ ation record ed. [facility] [address] [place], [address], 11/14/2024 15:18:20 11/15/19 25 11/14/2024 MAMMO , scree lexx, bilat eral No observ ation record ed. [facility] Scheduling [address] [place], [address], 11/18/2024 14:21:38 Result Notes None recorded. Problems Name Problem SNOMED Code Status Onset Date Resolution Date Notes Provider Name and Address Organization Details Recorded Time Anterior knee pain 335100754 Completed 07/09/2017 Danica Al[place] [facility] 8 16:14:18 Uncontro lled type 2 diabetes mellitus 062988951 Active Giselle remy [place] [facility] 2 10:42:39 Painful mouth 835263052 Completed 11/22/2014 Giselle Betancour t [place] [facility] 6 10:27:39 Knee pain Completed 07/09/2018 Danica [place] [facility] 9 11:36:54 Right upper quadrant pain 318844682 Completed 07/09/2017 Dan[place] [facility] 8 16:17:24 Epigastr ic pain 24370139 Completed 07/09/2017 Dan[place] [facility] 8 16:18:28 Heartbur n 48877901 Completed 07/09/2017 Dan[place] [facility] 8 16:13:45 Flatulen t dyspepsi a 327038469 Completed 07/09/2017 Dan[place] [facility] 8 16:17:14 Diabetes mellitus 39345178 Completed 11/22/2014 Giselle [place]our [place] [facility] 6 10:27:39 Helicoba cter detected in blood 226555205 Completed 07/09/2017 DELFINO Henriquez, [place] [facility] 8 16:13:50 Acute peptic ulcer 269345280 Completed 07/09/2017 Dan[place] [facility] 8 16:13:58 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 Giselle rem[place] [facility] 2 10:44:24 Infestat ion by Sarcopte s scabiei ernesto hominis 284941246 Completed 11/22/2014 Dan[place] [facility] 8 16:13:39 Thigh pain 01359273 Completed 07/09/2017 Dan[place] [facility] 8 16:18:22 Diabetic peripher al neuropat hy 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 Active Giselle remy [place] [facility] 2 10:43:41 Infestat ion by Sarcopte s scabiei ernesto hominis 723677240 Completed 07/09/2017 Dan[place] [facility] 8 16:13:39 Osteoart hritis of knee 678155720 Active DENNY Chavez, [place] [facility] 2 10:44:14 Bronchit is 36343878 Completed 07/09/2017 Dan[place] [facility] 8 16:17:39 Acute bronchit is 59251179 Completed 07/09/2017 Dan[place] [facility] 8 16:13:34 Allergic rhinitis 08825684 Active Giselle remy [place] [facility] 2 10:42:02 Eruption 360984870 Completed 07/09/2017 Dan[place] [facility] 8 16:17:18 Otitis media 22325537 Completed 201607/09/2017 Dan[place] [facility] 8 16:18:08 Acute conjunct ivitis 32335201 Completed 201607/09/2017 Dan[place] [facility] 8 16:17:46 Acute laryngit is 8736091 Completed 201607/09/2017 Dan[place] [facility] [place] 16:18:18 Hyperten sive disorder 26421995 Active 2018 Giselle remy [place] [facility] 2 10:42:15 Chronic kidney disease stage 3 576340471 Completed 201804/18/2021 follows with Ivonne Fernandez at [facility] Danica Al[place] [facility] 2 12:05:25 Gastroes ophageal reflux disease 234664601 Active 2020 Giselle Betakarlyour [place] [facility] 2 10:42:49 Irritabl e bowel syndrome 34209983 Active 2020 Giselle Betancour sandrita, [place] [facility] 2 10:44:10 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 389911561 Active 2021 Giselle Betancour sandrita, [place] [facility] 2 10:41:58 Vitamin D deficien cy 40309118 Active 2021 Giselle Betancour sandrita, [place] [facility] 2 10:42:32 Family history of malignan t neoplasm of breast in first degree relative 611979179 Active 2021 Jessie Dickson [facility] Attn: Qianin g,[address] [place], [address], [place] [facility] 2 11:34:39 Cyst of left ovary 51147260431 247862 Active 2021 Giselle remy [place] [facility] 2 10:45:06 Morbid obesity 469028347 Active 2021 Giselle Betanickolas remy, [place] [facility] 2 10:42:28 Pelvic mass 50885635 Active 2021 Jessie Dickson [facility] Attn: Accountin g,[address] [place], [address], [place] [facility] 2 11:34:39 Chronic constipa tion 125051301 Active 2021 Giselle Betancour sandrita, [place] [facility] 2 10:42:07 History of optic neuritis 29246478422 009102 Active 2021 Giselle remy [place] null, [place] [facility] 2 10:44:00 Bereavem ent 74998115 Active 2021 JOHN Topete Attn: Accountin g,[address] [facility], [place], [address], [facility] - [facility] 2 12:54:36 Body mass index 30+ - obesity 905603261 Active 2021 Danica Alvarez RN null, [facility] 3 14:27:16 History of cerebrov ascular accident 223461866 Active 2022 JOHN Topete Attn: Accountin g,[address] [facility], [place], [address], [facility] 3 15:13:27 Mass of right breast 40294641999 331544 Active 2022 JOHN Topete Attn: Accountin g,[address] [facility], [place], [address], [facility] 3 12:28:12 Obesity 900160184 Active 2023 JOHN Topete Attn: Accountin g,[address] [facility], [place], [address], [facility] - [facility] 4 12:29:07 Problem Notes None recorded. Procedures Surgical History Date Name Laterality Status Provider Name and Address Organization Details Recorded Time 06/05/19 22 Date of Last Mammogram completed Danica Alvarez RN [facility] 10/06/2022 14:29:46 03/21/19 22 Date of Last Pap Smear completed Danica Alvarez RN [facility] 10/06/2022 14:43:25 03/14/19 22 oophorectomy completed JOHN Topete Attn: Accounting,[address] [facility], [place], [address], [place] [facility] 03/21/2021 14:05:13 03/14/19 22 laparoscopic insertion of peritoneal dialysis catheter completed JOHN Topete Attn: Accounting,[address], [place], [address], [place] [facility] 03/21/2021 14:03:20 03/20/19 16 Joint Injection completed Tomer Boles MD [address] [place], [address], [place] [facility] 03/20/2015 11:44:06 12/20/19 15 Joint Injection completed Tomer Boles MD [address] [place], [address], [facility] - [facility] 12/19/2014 12:04:38 02/23/18 95 Caesarean Section completed Danica Alvarez RN [facility] 06/07/2014 16:13:25 02/23/18 94 Caesarean Section completed Danica Alvarez RN [facility] 06/07/2014 16:13:25 02/23/18 92 Caesarean Section completed Danica Alvarez RN [facility] 06/07/2014 16:13:25 Imaging Results None recorded. Procedure Notes None recorded. Medical Equipment None Reported. Allergies Allergen ID Allergen Name Allergen Category Reaction Reaction Severity Criticality Documentation Date Start Date Code Code System Note Provider Name and Address Organization Details Recorded Time 44726 Flagyl medicatio n hives Not available Not available 07/06/2014 6 RxNorm Michael taylor [facility] 5 12:31:18 75879 omeprazol e medicatio n rash Not available Not available 11/22/2014 7646 RxNorm Sep 2014 DELFINO Henriquez, [facility] 5 12:29:46 Medications Name Sig Start Date Stop Date [...] vaginal route at bedtime for 7 days. 11/04 completed Not Available Not Available Not [...] e 50 mcg/actua tion nasal spray,fernando pension [place] 1 spray twice a day by intranas [...] lispro 100 unit/mL subcutane ous pen Inject 5 units twice a day by subcutan eous route. 03/12 completed Not Available Not Available Not Available BD Alyson 2nd Gen Pen Needle 32 gauge x /32 USE DIRECTED active Not Available Not Available No t Available OneTouch Delica Plus Lancet 33 gauge active Not Available Not Available Not Available Vitals Date Recorded Body height Oxygen saturation Oxygen saturation in Arterial blood by Pulse oximetry Heart rate Body temperature Body mass index (BMI) Body weight Systolic And Diastolic Provider Name and Address Organization Details Last Updated DateTime 4 160.02 cm 100 % 100 % 68 /min 98.1 [degF] 32.6 kg/m2 15266.4 g 140/90 mm[Hg] Giselle remy MA [facility] 4 11:59:24 Date Recorded Body height Body mass index (BMI) Body weight Oxygen saturation Oxygen saturation in Arterial blood by Pulse oximetry Heart rate Body temperature Systolic And Diastolic Provider Name and Address Organization Details Last Updated DateTime 3 160.02 cm 36.3 kg/m2 58399.4 4 g 99 % 99 % 86 /min 98.1 [degF] 140/90 mm[Hg] Giselle remy MA [facility] 3 14:15:58 Date Recorded Body height Body mass index (BMI) Body weight Oxygen saturation Oxygen saturation in Arterial blood by Pulse oximetry Heart rate Respiratory rate Body temperature Systolic And Diastolic Provider Name and Address Organization Details Last Updated DateTime 4 160.02 cm 32.1 kg/m2 84238.2 2 g 100 % 100 % 68 /min 16 /min 98.1 [degF] 184/90 mm[Hg] Asad Mcfarlane MA [facility] 4 19:40:59 Date Recorded Body height Body mass index (BMI) Body weight Heart rate Body temperature Systolic And Diastolic Provider Name and Address Organization Details Last Updated DateTime 3 160.02 cm 33.5 kg/m2 84099.9 6 g 80 /min 97.9 [degF] 120/74 mm[Hg] Danica Alvarez RN [facility] 3 14:52:55 Date Recorded Body height Body mass index (BMI) Body weight Body temperature Oxygen saturation Oxygen saturation in Arterial blood by Pulse oximetry Heart rate Systolic And Diastolic Provider Name and Address Organization Details Last Updated DateTime 3 160.02 cm 32.1 kg/m2 34912.6 2 g 98.5 [degF] 98 % 98 % 74 /min 122/70 mm[Hg] Giselle remy MA [facility] 3 11:37:24 Social History Question Answer Notes LastModified by Organizat ion Details LastModified Time Tobacco Smoking Status Never Smoker Danica Alvarez RN [facility], [facility] 06/07/2014 16:13:25 Do You Have An Advance Directive? No Information not available 07/04/2021 Are You Blind Or Do You Have Difficulty Seeing? No Information not available 04/18/2021 What Is Your Level Of Caffeine Consumption? Moderate Coffee, Soda Information not available 07/04/2021 In The 14 Days Before Symptom Onset, Have You Had Close Contact With A Laboratory-confir med COVID-19 While That Case Was Ill? No Information not available 07/04/2021 In The 14 Days Before Symptom Onset, Have You Had Close Contact With A Person Who Is Under Investigation For COVID-19 While That Person Was Ill? No Information not available 07/04/2021 Have You Been To An Area Known To Be High Risk For COVID-19? No Information not available 04/18/2021 Are You Deaf Or Do You Have Serious Difficulty Hearing? No Information not available 04/18/2021 What Type Of Diet Are You Following? REGULAR Information not available 06/07/2014 Education 12 Information no t available 06/07/2014 Are There Any Guns Present In Your Home? No Information not available 06/07/2014 Hard Of Hearing Or Deaf In One Or Both Ears? No Information not available 06/07/2014 Legally Blind In One Or Both Eyes? No Information no t available 06/07/2014 Marital Status Single Informatio n not available 06/07/2014 What Was The Date Of Your Most Recent Tobacco Screening? 2023 Information not available 2023 How Many Children Do You Have? 3 Information not available 04/18/2021 Performs Monthly Self-breast Exam? No Information no t available 06/07/2014 What Is Your Relationship Status? [...] You Passively Exposed To Smoke? Yes Information no t available 04/18/2021 General Stress Level High Information not available 06/07/2014 Do You Use Sunscreen Routinely? No Information not available 07/04/2021 Has Tobacco Cessation Counseling Been Provided? No Information not available 01/31/2022 Sex: Female Functional Status Question Answer Note LastModified by Organizat ion Details LastModified Time Do you use any illicit or recreational drugs? No Information not available 07/04/2021 Do you or have you ever used any other forms of tobacco or nicotine? No Information not available 01/31/2022 What is your level of alcohol consumption? Occasional social Information not available 06/07/2014 Are you currently employed? Yes Leave of absence Information not available 04/18/2021 Are you able to care for yourself independently? Yes Information not available 04/18/2021 What is your occupation? [employer] Information not available 06/07/2014 What is your exercise level? None Information not available 04/18/2021 Mental Status Question Answer Note LastModified by Organization D etails LastModified Time Do you feel stressed (tense, restless, nervous, or anxious, or unable to sleep at night)? [id number] Information not available 03/21/2021 Family History Relationship Description Onset Age of [...] pneumococcal polysaccharide PPV23 8 completed Not Available [facility] 2019 02:45:24 Tdap 8 completed Not Available [facility] 2019 02:35:23 Pneumococcal conjugate PCV 13 2 completed Danica Al[place], [place] [facility] 04/19/2021 09:45:40 Hep B, adult 2 completed [place] [facility] 04/19/2021 09:44:41 Influenza, split virus, quadrivalent, preservative 2 completed Alonzo Reynolds MD Attn: Accounting[address] [place], [address], [place] [facility] 12/30/2021 15:50:00 Hep B, adult 3 completed JOHN Topete Attn: Accounting[address] [place], [address], [place] [facility] 10/07/2022 09:34:18 Influenza, split virus, quadrivalent, preservative 3 completed Cordelia Alexander [place] [facility] 02/03/2023 13:00:18 Hep B, adult 4 completed JOHN Topete Attn: Accounting,[address] [facility], [place], [address], [facility] 2023 15:26:13 Pneumococcal conjugate PCV20, polysaccharide [id number] conjugate, adjuvant, PF 4 completed Jessie Dickson, [employer] Attn: Accounting[address] [facility], [place], [address], [facility] 2023 15:26:13 Past Encounters Encounter ID Performer Location Encounter Start Date Encounter Closed Date Diagnosis/Indication Diagnosis SNOMED-CT Code Diagnosis ICD10 Code Diagnosis IMO Codes Diagnosis Note [id number] Waldemar La MD [facility] [address] [place] [address] 06/07/2014 15:52:20 06/08/2014 15:51:04 Anterior knee pain 290225900 06/04/2014 left knee xray=moder ate joint effusion otherwise normal 05/05/2014 left knee xray=joint effusion otherwise normal 11/24/2013 left knee xray=kimberly l the patient has not gone to PT which was ordered back in 10/2013 as something came up advised weight loss stressed to take Gabapentin 300mg tid daily not prn Uncontroll ed type 2 diabetes mellitus 370820335 the patient follows with Dr. Catherine Gaytan Endocrinol ogy at [facility]. The patient is non compliant with treatment and management of DM2 [id number] Kingsley Cardenas MD [address] [address] 06/20/2014 17:46:17 06/21/2014 09:46:05 Painful mouth 713481810 antibiotic s and follow up Knee pain 83542233 sees or tho August 15... pain meds and follow up [id number] Waldemar La MD [facility] [address] [place] [address] 07/06/2014 12:15:55 07/11/2014 13:25:20 Right upper quadrant pain 285877682 06/29/2014 CT of ABD/PELVIS showed a contracted Gallbladde r 07/03/2014 GB u/S = NORMAL Completed 1 week of daily Omeprazole BRAT diet avoid spicy foods or anything aggravatin g Epigastric pain 13537306 Heartburn 59707875 Flatulent dyspepsia 160719484 Diabetes mellitus 26509194 Patient follows up with ENDOCRINOL DENIS AT [facility] for this problem--s he is to continue to follow up with that office for this medical problem. [id number] Waldemar La MD [facility] [address] [place] [address] 07/19/2014 16:17:50 07/21/2014 16:53:41 Knee pain 50925762 see orthopedic s stop Ibuprofen for now will give some Tramadol for pain until seen by Ortho Continue PT Patient to discuss Rx for brace with Ortho Acute peptic ulcer 642923093 complete Triple therapy keep apt with GI Avoid aggravatin g foods [id number] Tomer Boles MD [facility] [address] [place] [address] 08/15/2014 09:14:17 08/16/2014 12:02:00 Patellofemoral osteoarthritis 168697039 [id number] Jessie Dickson [facility] [address] [place] [address] 10/02/2014 13:49:33 10/09/2014 12:46:07 Infestation by Sarcoptes scabiei ernesto hominis [id number] Jessie Dickson [facility] [address] [place] [address] 11/22/2014 12:15:53 11/23/2014 17:10:01 Thigh pain 01134481 Increase Gabapentin 600mg bid to tid Keep blood sugars in the low 100's weight loss, exercise diabetic neuropathy informatio n discussed and handout given Knee pain 27498709 see orthopedic s--as patient voices difficulty in getting an appointmen t RN has helped to get appt. and patient is now scheduled for 12/19/2014 --keep appointmen t weight loss/ROM exercises at home Use brace as directed Diabetic p eripheral neuropathy 773584298 Uncontroll ed type 2 diabetes mellitus 158243326 the patient follows with Dr. Catherine Gaytan Endocrinol ogheather at [facility]. The patient is non compliant with treatment [...] t and/or take with endocrinol ogist at App[place] t prn [id number] Tomer Boles MD [facility] [address] [place] [address] 12/19/2014 10:37:52 12/19/2014 16:01:48 Knee pain 72130921 M25.569 Patellofem oral osteoarthritis 584490600 M17.9 Infestatio n by Sarcoptes scabiei ernesto hominis 663362488 [id number] [id number] Tomer Boles MD [facility] [address] [place] [address] 03/20/2015 09:57:27 03/20/2015 13:54:02 Osteoarthritis of knee 406967779 M17.9 Anterior knee pain 36455 3006 M25.569 [id number] Jessie Dickson [facility] [address] [place] [address] 06/07/2015 10:25:17 06/11/2015 17:59:47 Adult health examination 374017599 Z00.01 Acute bronchitis 9959629 2 J20.9 Allergic rhinitis 876944 04 J30.9 Uncontroll ed type 2 diabetes mellitus 095784630 E11.65 the patient follows with Dr. Catherine Gaytan Endocrinol ogy at [facility]. The patient reports she is now compliant [...] fos fasting labs which she will get [facility] Medication monitoring 39 3219785 Z51.81 Patient was started on B/P medicine Lisinopril 5mg once daily per Endo Tessie black, [employer]MING ASSEMBLER on 04/10/2015= =she was given 11 RF and still using first bottle [id number] Carmelo Shore PA-C [address] [address] 05/31/2015 17:04:34 06/16/2015 13:13:12 Bronchitis 71645677 J40 [id number] Waldemar La MD [address] [address] 08/17/2015 18:18:44 08/21/2015 03:47:53 Eruption 115192711 R21 [id number] Carmelo Shore PA-C [address] [address] 04/24/2016 17:43:51 04/25/2016 17:15:56 Otitis media 52224801 H66.91 Acute conjunctivitis 537 45657 H10.31 Acute laryngitis 6385579 J04.0 viral [id number] Max Mayes MD [facility] [address] [place] [address] 07/09/2017 15:52:35 07/10/2017 10:25:39 Gynecologic examination 49606362 Z01.411 Self breast exam calcium rich foods handout vitamin D 2000 iu daily exercise weight loss diet Administra tion of pneumococcal vaccine 10431444 Z23 Administra tion of diphtheria, pertussis, and tetanus vaccine 296169889 Z23 Morbid obesity 805091854 E66.01 Cyst of left ovary 28584 54567 4415909 N83.202 Uncontroll ed type 2 diabetes mellitus 353131066 E11.65 the patient follows with Dr. Catherine Gaytan Endocrinol ogy at [facility]. The patient reports she is now compliant with treatment and management of DM2 2/2 to issues with her medication s not covered by insurance per patient report discussed ramificati ons of uncontroll ed DM and neuropathy symptoms patient is to call follow up with Endocrinol ogist for management of this problem Family his tory of malignant neoplasm of breast in first degree relative 780817158 Z80.3 Patient refuses referral for genetic testing [id number] Max Mayes MD [facility] [address] [place] [address] 09/23/2017 12:32:53 09/30/2017 18:12:11 Vaginitis 61771116 N76.0 Candidal vulvovaginitis 77928798 B37.3 [id number] Max Mayes MD [facility] [address] [place] [address] 07/09/2018 11:53:24 07/12/2018 10:40:14 Gynecologic examination 50083060 Z01.411 Self breast exam calcium rich foods handout vitamin D 2000 iu daily exercise weight loss diet Last pap 07/09/2017 normal due in 2020 Morbid obesity 111983485 E66.01 40.7 bmi Cyst of left ovary 21535 27630 5610252 N83.202 Uncontroll ed type 2 diabetes mellitus 577342524 E11.65 g the patient follows with Dr. Catherine Gaytan Endocrinol ogy at [facility]. The patient reports she is now compliant [...] neoplasm of breast in first degree relative 731697868 Z80.3 Patient's mother had breast cancer at 40 y/o Screening for malignant neoplasm of breast 061296155 Z12.31 Patient's mother had breast cancer at 40 y/o Adjustment disorder with depressed mood 15460832 F43.21 [facility] [id number] Alonzo Reynolds MD [facility] [address] [place] [address] 03/21/2021 11:24:25 03/22/2021 06:47:39 Gynecologic examination 79105771 Z01.411 Self breast exam calcium rich foods handout vitamin D 2000 iu daily exercise weight loss diet Last pap 07/09/2017 normal Morbid obesity 178240156 E66.01 39.4 bmi Cyst of left ovary 45626 89712 7175419 N83.202 Uncontroll ed type 2 diabetes mellitus 254469982 E11.65 the patient is currently not following with anyone for this problem the patient now on [place] with [facility] [place] using LantusHydr alazine 100mg bidLisinop ril 20mg daily Family his tory of malignant neoplasm of breast in first degree relative 909109997 Z80.3 Patient's mother had breast cancer at 40 y/oPATIENT WAS REFERRED TO COUNSELING BUT THE PATIENT DID NOT FOLLOW THRU Screening for malignant neoplasm of breast 192642755 Z12.31 Patient's mother had breast cancer at 40 y/o Adjustment disorder with depressed mood 66834377 F43.21 psychother apist list Hypertensive disorder 38 984711 I10 BP Goal: Less than 150/90 BP Controlled : yes; per the JNC8 guidelines in the absence of renal disease and DM Healthy Weight: 5'3= 107-140 lbs Discussed: Low sodium balanced diet, moderate exercise at least 3-4 times per week for an average of 40 minutes Next Visit: 3month(s) [id number] Waldemar La MD [facility] [address] [address] 04/18/2021 11:33:48 04/19/2021 07:52:01 Uncontrolled type 2 diabetes mellitus 477587772 E11.65 HA1C 6.1random accucheck 183the patient is currently not following with anyone for this problem she had been getting meds during ER visits-she had hospitaliz ation at [facility] 01/20/2021 found to be in ARF-starte d on dialysissh e presents today to establish care at this centerthe patient now on dialysis with [facility] in [facility] will be transition ing to self dialysis-s he is interested in renal transplant currently using Lantus 8 units at HSHydralaz ine 100mg bidLisinop ril 20mg dailylabet olol 200mg BID Chronic ki dney disease stage 5 on dialysis 800026322 Z99.2 [place] to [place] [facility] [place] Morbid obesity 773644329 E66.01 40.8 bmiHealthy Weight: 5'3= 107-140 lbs Hypertensive disorder 38 214241 I10 BP Goal: Less than 140/90BP Controlled : yesHealthy Weight: 5'3= 107-140 lbsDiscuss ed: Low sodium balanced diet, moderate exercise at least 3-4 times per week for an average of 40 minutesNex t Visit: 3month(s)Riccardo thornton has refill of her meds from nephrologi [facility] examination 802441523 Z00.01 Pelvic mass 20500823 R19 .00 L adnexal mass seen on pelvic u/s on 04/18/2021L arge cystic mass of the left adnexal region measuring at least 11.8 cm.This is indetermin ate for malignancy and not well characteri zed sonographi aaron.Furt her evaluation is recommende d with either CT or MRI with and withoutcon trast.Will send for MRI Anemia in chronic kidney disease 429220251 D63.1 Chronic constipation 236 176774 K59.09 Takes BisacodylT akes stool softener History of optic neuritis [id number] 7491327 Z86.69 2020seen opth 2020 [id number] Waldemar La MD [facility] [address] [address] 05/10/2021 09:59:12 05/13/2021 07:13:40 Uncontrolled type 2 diabetes mellitus 035612936 E11.65 HA1C 6.1random accucheck 183the patient is currently not following with anyone for this problem she had been getting meds during ER visits-she had hospitaliz ation at [facility] 01/20/2021 found to be in ARF-starte d on dialysissh e presents today to establish care at this centerthe patient now on dialysis with Davitta in [facility] le will be transition ing to self dialysis-s he is interested in renal transplant currently using Lantus 8 units at HSHydralaz ine 100mg bidLisinop ril 20mg dailylabet olol 200mg BID Anemia in chronic kidney disease 693996310 D63.1 [id number] Waldemar La MD [facility] [address] [address] 07/04/2021 11:05:56 07/05/2021 10:25:01 Allergic rhinitis 56154399 J30.9 otc zyrtec samples Uncontroll ed type 2 diabetes mellitus 755921074 E11.65 Today HA1C 8.1random accucheck 245the patient is currently not following with anyone for this problem she had been getting meds during ER visits-she had hospitaliz ation at [facility] 01/20/2021 found to be in ARF-starte d on dialysissh e presented [facility] with [facility] in [facility] has transition ed to self dialysis-s he is interested in renal transplant -has consulted at [facility] using Lantus 8 units at HS-BS at home 111-160Hyd ralazine 100mg bidLisinop ril 20mg dailylabet olol 200mg BIDShe will see Dr/nephrol ogist today and may have med adjustment Hypertensive disorder 38 820817 I10 BP Goal: Less than 140/90BP Controlled : noHealthy Weight: 5'3= 107-140 lbsDiscuss ed: Low sodium balanced diet, moderate exercise at least 3-4 times per week for an average of 40 minutesNex t Visit: 3month(s)Riccardo thornton has refill of her meds from nephrologi [facility] dney disease stage 5 on dialysis 399970090 Z99.2 continue to [place] Diabetic p eripheral neuropathy 801809530 E11.40 stable Gastroesop hageal reflux disease 854310778 K21.9 stable for now Morbid obesity 081173884 E66.01 40.8 bmiHealthy Weight: 5'3= 107-140 lbs Depression screening 171 275308 Z13.31 PHQ2-9 mild depression -patients 20 y/o daughter unexpected ly a couple of weeks agoPatient reports having difficulty sleeping Depressive disorder 9963 9007 F32.A 07/04/2021 PHQ2-9 09/18Agrees to start Rx escitalopr am Chronic constipation 236 974523 K59.09 Takes BisacodylT akes stool softener Bereavement 78474464 Z63 .4 recommend psychother apist-seek appointmen t [id number] Waldemar La MD [facility] [address] [place] [address] 08/15/2021 11:09:34 08/16/2021 15:00:04 Acute sinusitis 93244336 J01.90 Morbid obesity 454244151 E66.01 41.2 bmiHealthy Weight: 5'3= 107-140 lbs Bereavement 16326676 Z63 .4 recommend psychother apist-seek appointmen t Depressive disorder 8744 9007 F32.A 08/15/2021 PHQ2-9 wishes not to take Rx escitalopr twan cope on her owndenies suicide ideationre commend seek psychother demetrio/eladio t group Acute conjunctivitis 537 04464 H10.13 [id number] Waldemar La MD [facility] [address] [place] [address] 11/04/2021 11:15:18 11/05/2021 11:07:40 Uncontrolled type 2 diabetes mellitus 741324453 E11.65 Today HA1C 10.1random accucheck4 12BS 150-260 range just with Lantus 8 units-has not been using Lispro insulin for a whilethe patient is currently not following with anyone for this problem she had been getting meds during ER visits-she had hospitaliz ation at [facility] 01/20/2021 found to be in ARF-starte d on dialysissh e presented here on [facility]/18[facility] [place] [facility] [place] has transition ed to self dialysis-s he is interested in renal transplant -has consulted at [facility] using Lantus 8 units at HS-BS at home 111-160Hyd ralazine 100mg bidLisinop ril 20mg dailylabet olol 300mg BID Allergic rhinitis 602627 04 J30.9 otc zyrtec samples Hypertensive disorder 38 072355 I10 BP Goal: Less than 140/90BP Controlled : noHealthy Weight: 5'3= 107-140 lbsDiscuss ed: Low sodium balanced diet, moderate exercise at least 3-4 times per week for an average of 40 minutesNex t Visit: 3month(s)G ets meds from Nephrologi [facility] dney disease stage 5 on dialysis 948787493 Z99.2 continue to [place] Diabetic p eripheral neuropathy 205380763 E11.40 stable Gastroesop hageal reflux disease 193949389 K21.9 stable for now Morbid obesity 417712952 E66.01 37.8 bmiHealthy Weight: 5'3= 107-140 lbs Bereavement 40318774 Z63 .4 recommend psychother apist-seek appointmen t Depression screening 171 636931 Z13.31 PHQ2-9 wnl now Chronic constipation 236 193549 K59.09 Takes BisacodylT akes stool softener Cyst of left ovary 90125 71326 6074566 N83.202 Patient has had cyst since 2018Patien t has been referred to RESIDENTIAL INSTALLER for this problem back in 2018 and again in 2021Transp lant team needs a RESIDENTIAL INSTALLER note clearing for kidney transplant Has not seen RESIDENTIAL INSTALLER yet-appoin tment scheduled for later in the month [id number] Alonzo Reynolds MD [facility] [address] [place] [address] 12/27/2021 10:28:17 12/30/2021 12:57:50 Mass of right breast 8099778020 4759374 N63.10 movable soft mass 1.5cm (2) area below R nipple Body mass index 30+ - obesity 184742612 Z68.36 BMI 36.9Ht 5' 3 Healthy weight range 95-130 Depression screening 171 786782 Z13.31 PHQ2-9 wnl Mental hea lth screening 285437845 Z13.39 HAYLEY-7 negative Administra tion of influenza vaccine 79081059 Z23 [id number] Alonzo Reynolds MD [facility] [address] [address] 01/31/2022 11:30:16 02/03/2022 13:44:44 Family history of malignant neoplasm of breast in first degree relative 799382240 Z80.3 Patient's mother had breast cancer at 40 y/oPATIENT WAS REFERRED TO COUNSELING BUT THE PATIENT DID NOT FOLLOW THRU1 PATIENT WANTS TO GO TO GENETIC COUNSELING Mass of right breast 000 2515478 9373609 N63.10 movable soft mass 1.5cm (2) area below R nipple Body mass index 30+ - obesity 322147031 Z68.36 BMI 36.Ht 5' 3 Healthy weight range 95-130 Depression screening 171 091859 Z13.31 PHQ2-9 mild depression Mental hea lth screening 965384187 Z13.39 HAYLEY-7 negative Hypertensive disorder 38 281004 I10 BP Goal: Less than 140/90BP Controlled : noHealthy Weight: 5'3= 107-140 lbsDiscuss ed: Low sodium balanced diet, moderate exercise at least 3-4 times per week for an average of 40 minutesNex t Visit: 3month(s)[id number] Waldemar La MD [facility] [address] [place] [address] 03/05/2022 11:39:06 2022 12:49:43 Uncontrolled type 2 diabetes mellitus 758383102 E11.65 Today HA1C 9.6random accucheck 225BS 150-260 range just with Lantus 8 units-has not been using Lispro insulin for a whilethe patient is currently not following with anyone for this problem she had been getting meds during ER visits-she had hospitaliz ation at [facility] 01/20/2021 found to be in ARF-barbarae d on dialysissh e presented here on [facility]18[facility] with Trey in [facility] has transition ed to self dialysis-s he is interested in renal transplant -has consulted at [facility] using Lantus 10 units at HS-BS at home 69-160Hydr alazine 100mg bidLisinop ril 20mg dailylabet olol 300mg BID Hypertensive disorder 38 566752 I10 BP Goal: Less than 140/90BP Controlled : yesHealthy Weight: 5'3= 107-140 lbsDiscuss ed: Low sodium balanced diet, moderate exercise at least 3-4 times per week for an average of 40 minutesNex t Visit: 3month(s)[facility] Chronic ki dney disease stage 5 on dialysis 058655477 Z99.2 continue to follow [place] with [place]rey [place], [place] Body mass index 30+ - obesity 945153174 Z68.36 BMI 36.Ht 5' 3 Healthy weight range 95-130 Allergic rhinitis 112057 04 J30.9 otc zyrtec Diabetic p eripheral neuropathy 933624126 E11.40 stable Gastroesop hageal reflux disease 619677360 K21.9 stable for now Morbid obesity 466246363 E66.01 36 bmiHealthy Weight: 5'3= 107-140 lbs Cyst of left ovary 46284 08509 3356258 N83.202 Patient has had cyst since 2018Patien t has been referred to RESIDENTIAL INSTALLER for this problem back in 2018 and again in 2021Transp lant team needs a RESIDENTIAL INSTALLER note clearing for kidney transplant Has not seen RESIDENTIAL INSTALLER yet-appoin tment scheduled for later in the month Chronic constipation 236 680055 K59.09 Takes BisacodylT akes stool softener Depression screening 171 868505 Z13.31 PHQ2-9 negative Mental hea [facility] screening 869480491 Z13.39 HAYLEY-7 negative Nasal congestion 1462218 0 R09.81 Acute laryngitis 3920520 J04.0 Exposure to scabies 1626 575246 8615405 Z20.7 Pruritic rash 55241247 L 28.2 [id number] Waldemar La MD [facility] [address] [place] [address] 06/11/2022 14:01:33 06/12/2022 14:47:11 Body mass index 30+ - obesity 001473869 Z68.36 BMI 36.3Ht 5' 3 Healthy weight range 95-130 Obesity 861753813 E66.9 BMI 36.3Ht 5' 3 Healthy weight range 95-130 Follow-up visit 37599754 9 Z09 42 y/o AAF presents for follow up ER visit on 05/03/2022 to [facility] for severe headache. The patient has a [...] to see neurology. History of cerebrovascular accident 422847806 Z86.73 05/03/[address] showed small region of decreased attenuatio n at left occipital lobe suspicious for relatively recent, potentiall y acute infarct which is new since 01/06/2022 . Hypertensive disorder 38 958099 I10 BP Goal: Less than 140/90BP Controlled : yesHealthy Weight: 5'3= 107-140 lbsDiscuss ed: Low sodium balanced diet, moderate exercise at least 3-4 times per week for an average of 40 minutesNex t Visit: 3month(s)[facility] Labetalol stoppedPat ient is taking Lisinopril 20mg dailyPatie nt is taking Hydralazin e 100mg bid Depression screening 171 841500 Z13.31 PHQ2-9 negative Mental hea [facility] screening 472913094 Z13.39 HAYLEY-7 negative [id number] Waldemar La MD [facility] [address] [place] [address] 10/06/2022 14:16:18 10/07/2022 11:43:28 Hypertensive disorder 61505761 I10 BP Goal: Less than 140/90BP Controlled : yesHealthy Weight: 5'3= 107-140 lbsDiscuss ed: Low sodium balanced diet, moderate exercise at least 3-4 times per week for an average of 40 minutesNex t Visit: 3month(s)G ets meds from Nephrologi st Patient is taking Lisinopril 20mg dailyPatie nt is taking Hydralazin e 100mg bidPatient is taking Labetalol 300mg bid Uncontroll ed type 2 diabetes mellitus 884552328 E11.65 Today HA1C 8random accucheck 225BS 150-260 range just with Lantus 8 units-has not been using Lispro insulin for a whilethe patient is currently not following with anyone for this problem she had been getting meds during ER visits-she had hospitaliz ation at [facility] 01/20/2021 found to be in ARF-starte d on dialysissh e presented here on [facility]/18[facility]20[facility] with Trey in [facility] arias has transition ed to self dialysis-s he is interested in renal transplant -has consulted at [facility] and is on waiting listcurren tly using Lantus 10 units at HS-BS at home 69-160Pati ent will start using Lispro insulin 5 units bid she has not been using secondary to low sugars and afraidPati ent is taking Labetalol 300mg bidHydrala zine 100mg bidLisinop ril 20mg daily Morbid obesity 642128472 E66.01 33.5 BMIHealthy Weight: 5'3= 107-140 lbs Allergic rhinitis 460136 04 J30.9 otc zyrtec Gastroesop hageal reflux disease 018296748 K21.9 stable for now Obesity 376405694 E66.9 BMI 33.5Ht 5' 3 Healthy weight range 95-130 Chronic ki dney disease stage 5 on dialysis 427750946 Z99.2 continue to follow up with Trey in [place], [place] Body mass index 30+ - obesity 624897306 Z68.36 BMI 33.5Ht 5' 3 Healthy weight range 95-130 Diabetic p eripheral neuropathy 738665175 E11.40 stable Cyst of left ovary 83832 76317 3605896 N83.202 Patient has had cyst since 2018Patien t has been referred to RESIDENTIAL INSTALLER for this problem back in 2018 and again in 2021Transp lant team needs a RESIDENTIAL INSTALLER note clearing for kidney transplant Has not seen RESIDENTIAL INSTALLER yet-appoin tment scheduled for later Chronic constipation 236 961338 K59.09 Takes BisacodylT akes stool softener Nasal congestion 9193064 0 R09.81 Depression screening 171 882920 Z13.31 PHQ2-9 negative Mental hea lth screening 754873137 Z13.39 HAYLEY-7 negative Requires c ourse of hepatitis B vaccination 534993120 Z28.39 [id number] Alonzo Reynolds MD [facility] [address] [place] [address] 02/03/2023 11:22:33 02/04/2023 11:52:11 Body mass index 30+ - obesity 173025242 Z68.36 BMI 32.1Ht 5' 3 Healthy weight range 95-130 Depression screening 171 434084 Z13.31 PHQ2-9 wnl Mental hea lth screening 571962901 Z13.39 HAYLEY-7 negative Screening for malignant neoplasm of breast 984732400 Z12.31 patients' mother had breast cancer at 40 y/o Administra tion of influenza vaccine 69355904 Z23 [id number] Waldemar La MD [facility] [address] [place] [address] 2023 11:02:07 03/13/2023 15:33:54 Uncontrolled type 2 diabetes mellitus 772232434 E11.65 Today HA1C 6.4random accucheck 178BS 150-260 range just with Lantus 8 units-has not been using Lispro insulin for a whilethe patient is currently not following with anyone for this problem she had been getting meds during ER visits-she had hospitaliz ation at [facility] 01/20/2021 found to be in ARF-mally d on dialysissh e presented here [facility]/18[facility] with Davitta in [facility] le has transition ed to self dialysis-s he is interested in renal transplant -has consulted at [facility] and is on waiting listcurren tly using Lantus 10 units at -BS at home 69-160Pati ent stopped using Lispro insulin 5 units bid she has not been using secondary to low sugars and afraidPati ent is taking Labetalol 300mg bidHydrala zine 100mg bid Hypertensive disorder 38 937059 I10 BP Goal: Less than 140/90BP Controlled : yesHealthy Weight: 5'3= 107-140 lbsDiscuss ed: Low sodium balanced diet, moderate exercise at least 3-4 times per week for an average of 40 minutesNex t Visit: 3month(s)G ets meds from Nephrologi st Patient is taking Hydralazin e 100mg bidPatient is taking Labetalol 300mg bid Vitamin D deficiency 347 61268 E55.9 Allergic rhinitis 163874 04 J30.9 otc zyrtec Morbid obesity 200658011 E66.01 BMI 32.6Health y Weight: 5'3= 107-140 lbs Gastroesop hageal reflux disease 768127906 K21.9 stable for now Obesity 997497440 E66.9 BMI 32.6Ht 5' 3 Healthy weight range 95-130 Chronic ki dney disease stage 5 on dialysis 110953130 Z99.2 continue to follow up with Trey in [place], [place] Body mass index 30+ - obesity 836600579 Z68.36 BMI 32.6Ht 5' 3 Healthy weight range 95-130 Diabetic p eripheral neuropathy 661857866 E11.40 stable Chronic constipation 236 584864 K59.09 Takes BisacodylT akes stool softener Nasal congestion 3459816 0 R09.81 Requires c ourse of hepatitis B vaccination 683315257 Z28.39 Depression screening 171 587875 Z13.31 PHQ2-9 negative Mental hea lth screening 576322951 Z13.39 HAYLEY-7 negative Administra tion of pneumococcal vaccine 65854362 Z23 Has DM2, CKD, Vaginitis 62473595 N76.0 c/o vaginal itching [id number] BRITTNY GRAVES MD [facility] [address] [place] [address] 09/08/2023 19:36:30 09/09/2023 08:36:21 Obesity 917874903 E66.8 Renewal of prescription 372115825 Z76.0 Diabetic p eripheral neuropathy 344887518 E11.40 Altered appetite 4183281 04 R63.8 Health Concerns Section Related Observation LastModified by Organization Detai ls LastModified Time None Recorded Concern Status LastModified by Organization Details LastModified Time None Recorded Advance Directives Directive N: Payers Insurance Date Sequence Insurance Name Policy Number Policy Zuleta Covered Member ID Zuleta Member ID Guarantor Name 07/09/2018 [facility] (MED[place]ID HMO) [id number] Bakari Smart [id number] Bakari Smart 03/21/2021 SLIDING FEE SCHEDULE - DISCOUNT Bakari Smart 04/30/2021 1 *SELF PAY* Juan Smart 04/30/2021 2 [facility] (MEDICAID HMO) [id number] Bakari Smart [id number] Bakari Smart 11/07/2024 2 [place]SECONDARY [place]AN WHEN MEDICARE OR MEDICARE REPLACEMENT PRIMARY) Bakari Smart [id number] Bakari Smart 09/08/2023 [place] [facility] Bakari Smart [id number] Bakari Smart 11/07/2024 1 [place] Bakari Smart [id number] Bakari Luis 05/10/2021 1 [employer] [facility] [place] [facility] ON OR AFTER 01/24/2020 (MEDICAID REPLACEMENT - HMO) Bakari Luis [id number] Bakari Luis 10/29/2017 2 [facility] PRIOR TO 08/23/2020 (MEDICAID REPLACEMENT - HMO) Moniashley Smart [id number] Heatherkamariashley Luis 04/30/2021 1 [place]: [place] [facility] Bakari Luis [id number] Bakari Luis Notes Date Note Type Note Provider Name and Address Organization Details Recorded Time 3 text/html ROS as noted in the HPI 42 y/o AAF presents for follow up ER visit on 05/03/2022 to [facility] for severe headache. The patient has a [...] has not started on Atorvastatin 80mg yet. JOHN Topete Attn: Accounting,[address] [facility], [place], [address], [facility] 06/11/2022 15:17:36 3 text/html Diabetes F/UReported by PatientHPIFor context, patient reportshome blood sugar range high,home blood sugar range low (below 70),not checking feet regularly, andmissing doses of medicationbut reportsseeing eye doctor regularlyandno side effects from medications. For associated symptoms, patient reportsweight loss (16 lbs)but reportsno weight gain,no dizziness,no sweats,no headaches,no confusion,no increased thirst,no increased appetite,no increased urination,no blurred vision,no numbness of feet, andno calluses on feet. For review finger sticks, patient reportsfastin,post breakfast: ___,pre dinner: ___, andpost dinner: 260. For labs, patient reportslast a1c result: 8. Hypertension F/UReported by PatientHPIFor lifestyle, patient reportsnot exercising regularlybut reportslimiting/avoiding salt. For associated symptoms, patient reportsno dizziness,no lightheadedness,no chest pain,no shortness of breath,no palpitations,no edema, andno calf pain with exertion. For medications, patient reportstaking medications as directedandno side effects from medication. ConstipationReported by PatientHPIFor quality, patient reportshard,dry,straining, anddecreased frequency. For context, patient reportsstressandhistory of chronic idiopathic constipationbut reportsno recent opiates,no recent surgery,no anemia,normal toileting ability,no history of ibs,no history of hirschsprung's,no family history of colon polyps or cancer,no history of colonoscopy,no history of diverticulosis, andno abnormal imaging. For aggravating factors, patient reportseatingandstress. For associated symptoms, patient reportsweight loss (8 lbs)andbloatingbut reportsno abdominal pain,no excess gas,no fever,no rash,no joint pain,no nausea,no vomiting,no heartburn,no blood in stool,no mucus in stool,no black or tarry stools,no weakness,no nutrient deficiency, andno fecal incontinence. For severity, patient reportsmoderate. For duration, patient reportspresent 5 or more years. For onset/timing, patient reportsonce a day. For alleviating factors, patient reportshaving bowel movement.ROS as noted in the HPI 42 y/o AAF presents for follow up care at this health centershe presents today for follow up care at this centerShe continues to take:Hydralazine 100mg bidLisinopril 20mg dailylabetolol 300mg BIDFollows with DR [facility] Phys[facility] Assistant she is now doing dialysis 3 times [...] Dialysis center advises at least 1 BM dailyShren has seen Neurology and cardiology. She is on list for transplant voices was pushed back on list.She was in hospital for episode of hypoglycemia-aware that is because she doesnt eat on a regular basis. [facility] Attn: Accounting,[address] [facility], [place], [address], [facility] 10/07/2022 10:01:14 3 text/html ROS as noted in the HPI 42y/o AAF presents for CBE and mammogram order. She has no complaints. She continues to get dyalisis. She wants to get influenza vaccine. She has no contraindications. JOHN Topete Attn: Accounting,[address] [facility], [place], [address], [facility] 02/03/2023 12:30:19 4 text/html Diabetes F/UReported by PatientHPIFor context, patient reportshome blood sugar range high,home blood sugar range low (below 70),not checking feet regularly, andmissing doses of medicationbut reportsseeing eye doctor regularlyandno side effects from medications. For associated symptoms, patient reportsweight loss (16 lbs)but reportsno weight gain,no dizziness,no sweats,no headaches,no confusion,no increased thirst,no increased appetite,no increased urination,no blurred vision,no numbness of feet, andno calluses on feet. For review finger sticks, patient reportsfastin,post breakfast: ___,pre dinner: ___, andpost dinner: 260. For labs, patient reportslast a1c result: 6.4. Hypertension F/UReported by PatientHPIFor lifestyle, patient reportsnot exercising regularlybut reportslimiting/avoiding salt. For associated symptoms, patient reportsno dizziness,no lightheadedness,no chest pain,no shortness of breath,no palpitations,no edema, andno calf pain with exertion. For medications, patient reportstaking medications as directedandno side effects from medication. ConstipationReported by PatientHPIFor quality, patient reportshard,dry,straining, anddecreased frequency. For context, patient reportsstressandhistory of chronic idiopathic constipationbut reportsno recent opiates,no recent surgery,no anemia,normal toileting ability,no history of ibs,no history of hirschsprung's,no family history of colon polyps or cancer,no history of colonoscopy,no history of diverticulosis, andno abnormal imaging. For aggravating factors, patient reportseatingandstress. For associated symptoms, patient reportsweight loss (8 lbs)andbloatingbut reportsno abdominal pain,no excess gas,no fever,no rash,no joint pain,no nausea,no vomiting,no heartburn,no blood in stool,no mucus in stool,no black or tarry stools,no weakness,no nutrient deficiency, andno fecal incontinence. For severity, patient reportsmoderate. For duration, patient reportspresent 5 or more years. For onset/timing, patient reportsonce a day. For alleviating factors, patient reportshaving bowel movement.ROS as noted in the HPI 43 y/o AAF presents for follow up care at this health centershe presents today for follow up care at this centerShe continues to take:Hydralazine 100mg bidlabetolol 300mg BIDFollows with DR Beth Barrett Family Medicine Physician Assistant she is now doing dialysis 3 times [...] She has no contraindications. RICCI TopeteBC Attn: Accounting,[address] [facility], [place], [address], [facility] 04/02/2023 17:51:42 4 text/html ROS as noted in the HPI Patient is here for medication refill. During [...] things I cannot do RICCI SargentC Attn: Accounting,[address] [facility], [place], [address], [facility] 09/08/2023 20:26:04 OBGyn Episode Ob Episode Information Episode Created Date Number of Fetuses Patient Bloodtype Patient rh Status Prepregnancy Weight lbs Domestic Partner Domestic Partner Phone Father Name Academic Interventionist Status 07/10/19 19 1 CLOSED Fetus Data First Name Last Name Admitted to NICU Weight (g) Sex Living Outcome Pediatric Complications Fetus ID Race Codes Race Delivery Type F [id number] Camilo Calculation Initial Camilo Date Initial Exam [...] Domestic Partner Domestic Partner Phone Father Name Academic Interventionist Status 07/10/19 19 1 CLOSED Fetus Data First Name Last Name Admitted to NICU Weight (g) Sex Living Outcome Pediatric Complications Fetus ID Race Codes Race Delivery Type M [id number] Camilo Calculation Initial Camilo Date Initial Exam [...] Domestic Partner Domestic Partner Phone Father Name Academic Interventionist Status 07/10/19 19 1 CLOSED Fetus Data First Name Last Name Admitted to NICU Weight (g) Sex Living Outcome Pediatric Complications Fetus ID Race Codes Race Delivery Type F [id number] Camilo Calculation Initial Camilo Date Initial Exam [...]
--- OUTSIDE RECORDS SUMMARY | 2024-11-29 21:11 | XMS_ITS | Encounter Summary ---
Author Organization [facility] Healthcare Address [address] [place] [address] Care Team Providers Care Ssis Developer Name Role Phone Jessie Dickson NP Primary Care Provider [phone] Almita Rizzo RN Unavailable [phone] Beth Fernandez MD Unavailable [phone] Maday Oviedo MD Unavailable [phone] Tomasz Scott DO Unavailable [phone] Bashir Alston MD Primary Care Provider [phone] No, Physician Primary Care Provider [phone] Meir Nazario MD Unavailable [phone] Kendra Russell RN Unavailable [phone] Unknown, Notinfile Primary Care Provider Unavail able Sulema Lennon NP Primary Care Provider [phone] Reason for Visit * Reason Onset Date Comments READY TO SCHEDULE 04/28/2023 Encounter Details Date Type Department Care Team (Late st Contact Info) Description 04/28/2023 Telephone [facility] Specialty Services [address] [place] [address] Miscellaneous, Not In File READY TO SCHEDULE [...] on file 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 Gender Identity Not on file Sexual Orientation [...] documented as of this encounter Care Teams Ssis Developer Relationship Specialty Start Date End Date Jessie Dickson NP [address] [place] [address] PCP - General Nurse Practitioner 03/05/21 07/07/23 Bashir Alston MD [address] [place] [address] PCP - General Transplant 07/08/23 07/08/23 No, Physician PCP - General 02/16/24 09/12/24 Unknown, Notinfile PCP - General 09/13/24 09/13/24 Sulema Lennon NP [address] [facility] [[email or web address] [address] [place] [address] PCP - General Nurse Practitioner 09/14/24 Almita Rizzo, RN [address] [facility] [address] [place] [id number] Patternmaker Apprentice [employer] 04/04/21 Beth Fernandez MD [address] [place] [address] Referring Physician Nephrology 04/04/21 Maday Oviedo MD [address] [place] [address] Neurology 09/12/22 Tomasz Scott DO [address] [place] [address] Dormitory Counselor Cardiology 09/16/22 Meir Nazario MD [address] [place] [address] Obstetrics and Gynecology 04/11/24 Kendra Russell RN [address] [place] [address] SHOP Outpatient Slot Machine Mechanic 06/24/24 07/21/24 documented as of this encounter
--- OUTSIDE RECORDS SUMMARY | 2024-11-29 21:11 | XMS_ITS | Clinical Summary ---
Author Organization [facility] Address [facility] [place] [address] Care Team Providers Care Lead Data Architect Name Role Phone Sulema Lennon NP Primary Care Provider [phone] Allergies Active Allergy Reactions Criticality Noted Date Comments Metronidazole Rash Low 10/10/2024 Ibuprofen Unknown 10/10/2024 Pt reports I don't know why I can't take it Omeprazole Rash,Other (see comment) Medium 04/21/2017 Other reaction(s): Skin Reactions Other reaction(s): Hives Other reaction(s): Skin Reactions Other reaction(s): Skin Reactions Other reaction(s): Hives Other reaction(s): Hives Other reaction(s): Skin Reactions Other reaction(s): Hives Other reaction(s): Hives omeprazole Medications acetaminophen (TYLENOL) 325 MG tabletIndicati ons:Pain Take 2 tablets by mouth every 6 (six) hours as needed. Indications: Pain FOR PAIN 09/16/19 25 Active albuterol sulfate HFA 108 (90 Base) MCG/ACT inhalerIndicat ions:Shortness of breath Inhale 2 puffs into the lungs every 4 (four) hours as needed for Wheezing or Shortness of breath (Patient has been out of medication). Indications: Shortness of breath 01/08/20 24 Active gabapentin (NEURONTIN) 100 MG capsuleIndicat ions:Pain Take 2 capsules by mouth 3 (three) times daily. Indications: Pain 12/01/19 24 025 Active lactulose (CHRONULAC) 10 GM/15ML solutionIndica tions:Constipa tion Take 15 mLs by mouth as needed (Constipation). Indications: Constipation Active doxazosin (CARDURA) 2 MG tabletIndicati ons:Hypertensi on Take 1 tablet by mouth daily. Indications: High Blood Pressure 09/16/19 25 026 Active apixaban (ELIQUIS) 5 MG tabletIndicati ons:Deep Vein Thrombosis Take 1 tablet (5 mg total) by mouth 2 (two) times daily. Indications: Blood Clot in a Deep Vein 180 tablet 10/14/19 25 Active amLODIPine (NORVASC) 10 MG tabletIndicati ons:Hypertensi on Take 1 tablet (10 mg total) by mouth nightly. 30 tablet 10/14/19 25 Active losartan (COZAAR) 100 MG tabletIndicati ons:Hypertensi on Take 1 tablet (100 mg total) by mouth daily. 30 tablet 10/14/19 25 Active DAPTOmycin 400 mg in sodium chloride 0.9 % SOLN 100 mLIndications: Peritonitis,Pn eumonia,Sepsis ,Staphylococca l Bacteremia [The details of the medication are not available because there are pending changes by a home health clinician.] 400 mg 10/28/19 25 Active Additional Information Patient taking differently:400 mg Intravenous Twice a week,given after hemodialysis by HD RN via permacath, Indications: Peritonitis, Pneumonia, Sepsis, Staphylococcal Bacteremia, Reported on 10/30/2024 DAPTOmycin 600 mg in sodium chloride 0.9 % SOLN 100 mLIndications: Peritonitis,Pn eumonia,Sepsis ,Staphylococca l Bacteremia [The details of the medication are not available because there are pending changes by a home health clinician.] 600 mg 10/30/19 25 Active Additional Information Patient taking differently:600 mg Intravenous Weekly,given after hemodialysis by HD RN via permacath, Indications: Peritonitis, Pneumonia, Sepsis, Staphylococcal Bacteremia, Reported on 10/30/2024 epoetin emma-epbx (RETACRIT) 2000 UNIT/ML injectionIndic ations:Chronic Kidney Disease Stage 5 Inject 5 mLs (10,000 Units total) into the skin once a week. Indications: Chronic Kidney Disease Stage 5 1 mL 10/28/19 25 Active aspirin EC 81 MG tablet Take 1 tablet (81 mg total) by mouth daily. Active atorvastatin (LIPITOR) 80 MG tablet Take 1 tablet (80 mg total) by mouth daily. Active calcium acetate, phos binder, (PHOSLO) 667 MG Cap TAKE 2 CAPSULES BY MOUTH WITH EACH MEAL Active cefpodoxime (VANTIN) 200 MG tablet TAKE 1 TABLET BY MOUTH EVERY DAY MUST ADMINISTER WITH A MEAL/FOOD 09/29/19 25 Active fluticasone propionate (FLONASE) 50 MCG/ACT nasal spray 2 sprays by Nasal route. 12/30/19 24 Active hydrALAZINE HCl 100 MG Tab Take 1 tablet by mouth 2 (two) times daily. Active labetalol (NORMODYNE) 300 MG tablet Take 1 tablet (300 mg total) by mouth 2 (two) times daily. Active HYDROcodone-ac etaminophen (NORCO) 5-325 MG tablet Take 1 tablet by mouth every 6 (six) hours as needed. 10/07/19 25 Active ibuprofen (MOTRIN) 600 MG tablet Active Insulin Degludec FlexTouch 100 UNIT/ML Solution Pen-injector 10 UNIT (0.1 ML) SUBCUTANEOUSLY DAILY 11/02/19 25 Active Insulin Glargine-yfgn 100 UNIT/ML Solution Pen-injector INJECT 14 UNITS (0.14 ML) SUBCUTANEOUSLY BEDTIME 03/21/19 25 Active EMBECTA PEN NEEDLE HERI 2 GEN 32G X 4 MM Misc INJECT INSULIN ONCE DAILY DIRECTED 08/02/19 25 Active megestrol (MEGACE) 40 MG tablet Take 1 tablet by mouth daily. 12/07/19 24 Active methocarbamol (ROBAXIN) 750 MG Tab take 2 tablets (1500 mg) by mouth three times a day 05/07/19 25 Active rOPINIRole (REQUIP) 0.25 MG tablet 0.25 MG ORALLY EVERY DAY AT BEDTIME Active rOPINIRole (REQUIP) 0.5 MG tablet Take 1 tablet (0.5 mg total) by mouth nightly at bedtime. at bedtime. Active triamcinolone (KENALOG) 0.1 % cream APPLY THIN COAT TO AFFECTED AREA TWICE A DAY Active labetalol (NORMODYNE) 200 MG tabletIndicati ons:Hypertensi on Take 1 tablet (200 mg total) by mouth every 12 (twelve) hours for 30 days. 60 tablet 10/28/19 25 025 Discontinu ed(Discont inued by another clinician) sevelamer carbonate (RENVELA) 800 MG tabletIndicati ons:Chronic Kidney Disease Stage 5 Take 2 tablets (1,600 mg total) by mouth 3 (three) times daily for 30 days. Indications: Chronic Kidney Disease Stage 5 270 tablet 10/28/19 25 025 Active Problems Problem Noted Date Diagnosed Date Acute peptic ulcer 11/23/2024 Acute bronchitis 11/23/2024 Allergic rhinitis 11/23/2024 Anterior knee pain 11/23/2024 Diabetic peripheral neuropathy ([facility]) 11/23/2024 Heartburn 11/23/2024 Infestation by Sarcoptes scabiei ernesto hominis 02/2024 Painful mouth 11/23/2024 Osteoarthritis of patellofemoral joint Epigastric pain 11/23/2024 Skin eruption 11/23/2024 Thigh pain 11/23/2024 Diabetes mellitus ([facility]) 11/23/2024 Elevated CPK 11/10/2024 ESRD on hemodialysis ([facility]) Right hand pain 10/11/2024 Hypertensive urgency 09/13/2024 Encounter for peritoneal dialysis 06/21/2024 Pain of left upper extremity 06/24/2023 Mass of right breast 02/02/2023 Encounter for surgical after care following surgery of circulatory system 07/04/2022 History of cerebrovascular accident 06/11/2022 Ovarian mass 04/10/2022 Overview (11/23/2024): Added automatically from request for surgery [id number] Bereavement 07/04/2021 Chronic constipation 04/17/2021 Cyst of left ovary 04/17/2021 History of optic neuritis 04/17/2021 Morbid obesity 04/17/2021 Pelvic mass 04/17/2021 Family history of malignant neoplasm of breast in first degree relative 03/20/2021 Stage 5 chronic kidney disea se on dialysis ([facility]) 03/15/2021 ESRD (end stage renal diseas e) on dialysis ([facility]) 03/05/2021 Gastroesophageal reflux disease 01/18/2021 Stage 3 chronic kidney disease 07/13/2018 Overview (11/23/2024): follows with Ivonne Fernandez at [facility] 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 Hypertension 05/31/2018 Blurring of visual image 05/24/2018 Acute conjunctivitis 04/23/2016 Acute laryngitis 04/23/2016 Otitis media 04/23/2016 Diabetic retinopathy associa graeme with type 2 diabetes mellitus ([facility]) 06/12/2015 Visual disturbance 06/12/2015 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 ([facility]) 12/07/2014 Hyperlipidemia 06/29/2014 Vitamin D deficiency 09/17/2012 Encounters Date Type Department Care Team Description 11/23/2024 3:15 PM CDT Office Visit [facility], [address] [place] [address] Raulito Valdez MD Follow Up 11/23/2024 11:00 AM CDT Home Care Visit [facility] Home Care [place] [address] [address] Urmila Allen RN SN OASIS DISCHARGE/ASSESSMENT 11/23/2024 Home Care Visit [facility] Home Care [place] [address] [place] [address] [place] [address] Urmila Allen RN [facility] 11/23/2024 Travel 11/16/2024 9:00 AM CDT Home Care Visit [address] [place] [address] [address] Jessica Bond, SHIRA OT DISCIPLINE DISCHARGE 11/16/2024 Scan HEALTH INFO SRVCS Scanned, [facility] 11/16/2024 Telephone [facility] [place] [address] [place] [address] Brian Denise MD Appointment Request 11/14/2024 9:36 AM CDT - 11/14/2024 11:59 PM CDT Hospital Encounter [facility] [place] [address] Minh Mccarthy MD Discharge Disposition: Home or Self Care (Routine Discharge) 11/14/2024 Travel 11/11/[address] [phone] Minh Mccarthy MD Clarification (Location for Labs) 11/09/2024 1:20 PM CDT Telemedicine [address] [address] Minh Mccarthy MD Bacteremia (With peritonitis); Chronic Kidney Disease (ESRD on HD); Abnormal Lab Results (CPK elevation) 11/09/[address] [phone] Minh Mccarthy MD Lab Results 11/09/2024 Travel 11/08/2024 Scan [facility] HEALTH INFO SRVCS Scanned, [facility] Lab (SCAN) 11/07/2024 Scan [facility] HEALTH INFO SRVCS Scanned, [facility] Lab (SCAN) 11/03/2024 2:00 PM CDT Home Care Visit [address] [phone] Jessica Bond OT OT HOME VISIT 11/03/[address] [phone] Minh Mccarthy MD Medication 11/02/2024 Hospital Follow-up Call [facility] [place] [address] Rosibel Alonzo LPN Follow Up Call (PARISA 10/10-10/29/24) 11/01/2024 12:30 PM CDT Home Care Visit [address] [phone] Jessica Bond OT OT INITIAL EVALUATION 11/01/2024 Telephone [facility] Medical Group Multispecialty [address] [phone] Minh Mccarthy MD Appointment Request; Returned Call; Callback 10/31/2024 Telephone [facility] [place] [address], [address] [place] [phone] Sulema Lennon NP Advice (Nurse Triage - After Hours ([id number])/) 10/30/2024 2:28 PM CDT - 10/30/2024 11:59 PM CDT [facility] [address] [place] [address] Minh Mccarthy MD Discharge Disposition: Home or Self Care (Routine Discharge) 10/30/2024 9:00 AM CDT Home Care Visit [place] [address] [place] [address] [phone] Mariana Glynn, DELFINO SN OASIS START OF CARE 10/30/2024 Home Care Visit [place] [address] [place] [address] [place] [phone] Ivett Willis RN CASE COMMUNICATION 10/30/2024 Plan of Care Documentation [address] [place] [address] [place] [phone] 10/30/2024 Orders Only [facility] [address] [address] Minh Mccarthy MD 10/28/2024 9:00 AM CDT Home Care Visit [place] [address] [place] [phone] Vanita Alberts, TRANSPORTATION MECHANIC VISIT 10/26/2024 7:42 PM CD[address] Anesthesia [place] [address] Favian Moody MD Clements, Kristopher P, EXPORT FREIGHT CLERK 10/26/2024 7:40 PM CDT - 10/26/2024 8:49 PM CDT Surgery [place] [address] Raulito Valdez MD PERMACATH PLACEMENT 10/23/2024 3:00 PM CDT - 10/23/2024 4:09 PM CDT Surgery [place] [address] Raulito Valdez MD TEMPORARY HEMODIALYSIS CATHETER PLACEMENT 10/22/2024 1:09 PM CDT - 10/22/2024 2:39 PM CDT Surgery [place] [address] Lv Perez MD REMOVAL PERITONEAL DIALYSIS CATHETER 10/22/2024 10:55 AM CDT Anesthesia [place] [address] Edinson Claros MD O'Brien, Patrick K, EXPORT FREIGHT CLERK 10/22/2024 Travel 10/21/2024 Prep for Procedure [facility] [address] Raulito Valdez MD 10/17/2024 Telephone [facility] Care Management [address] [place] [address] Keily Weston, telecom manager (Swing bed referral to [facility]/) 10/10/2024 6:44 PM CDT - 10/29/2024 3:04 PM CDT Hospital Encounter [facility] Tele[place] [address] Wagner Paz MD,PHD Ben, MD Sherry Trivedi Jordan K, MD Brubaker, MD Mathieu Duke, Jose Ji MD Hand Pain; Wrist Pain Discharge Disposition: Home with Home Health Care 10/10/2024 Travel from Last 3 Months Immunizations Immunization Administration Dates Next Due Dtp (Generic) 06/18/1984, 1,05/23/1980,1979 Flucelvax (ccIIV3, Trivalent , 0.5 ML Multi-Dose Vial) 11/27/2023 Hepatitis B (Generic: Adult) 2023,10/07/19 23,04/18/2021 Influenza Adult (Generic) 02/03/2023,12/27/2021 MMR (MMRII) 06/18/1984 Pneumococcal (Pneumovax 23) 07/09/2017 Pneumococcal (Prevnar 13) 04/18/2021 Pneumococcal (Prevnar 20) 2023 Pneumococcal (Prevnar 7) 03/03/2018 Polio Opv (Generic) 06/18/1984, 1,05/23/1980,1979 Tdap (Generic) 07/09/2017 Social History Tobacco Use Types Packs/Day Years Used Date Smoking Tobacco: Never Tobacco Cessation:Counseling Given: Not Answered Alcohol Use Standard Drinks/Week Comments Not Currently 0 (1 standard drink = 0.6 oz pur e alcohol) OASIS D0700: Social Isolation Answer Da te Recorded Frequency of experiencing loneliness or isolatio n Never 11/23/2024 OASIS A1250: Transportation Answer Date Recorded Lack of Transportation (Medical) No 11/23/2024 Lack of Transportation (Non-Medical) No 11/23/2024 Patient Unable or Declines to Respond No 11/23/2024 OASIS B1300: Health Literacy Answer Pito e Recorded Frequency of needing help to read materials from doctor or pharmacy Never 11/23/2024 [facility] Utilities Answer Date Recorded In the past 12 months has e [employer] gas, oil, or water [employer] threatened to shut off services in your [...] and heating? Not hard at all 10/11/2024 PHQ-2 Answer Date Recorded Patient Health Questionnaire-2 Score 0 11/09/2024 Hunger Vital Sign Answer Date Recorded Within [...] any time in the past 12 m [facility], were you homeless or living in a assisted (including now)? No 10/11/2024 Comments Unknown Sex and Gender Information Value Date Recorded Sex Assigned at Female 10/10/2024 6:06 PM CDT Legal Sex Female 5:54 PM CDT Gender Identity Not on file Sexual Orientation Not on file Last Filed Vital Signs Vital Sign Reading Time Taken Comments Blood Pressure 112/64 11/23/2024 10:10 AM CDT Pulse 82 11/23/2024 10:10 AM CDT Temperature 35.5 C (95.9 F) 11/16/2024 9:54 AM CDT Respiratory Rate 16 11/23/2024 10:10 AM CDT Oxygen Saturation 96% 11/23/2024 10:10 AM CDT Inhaled Oxygen Concentration - - Weight 86.3 kg (190 lb 3.2 oz) 11/23/2024 3:06 P M CDT Height 160 cm (5' 3) 11/23/2024 3:06 PM CDT Body Mass Index 33.69 11/23/2024 3:06 PM CDT Plan of Treatment Upcoming Encounters Date Type Department Care Team (Late st Contact Info) Description 03/22/2025 10:40 AM SMT OPERATOR Office Visit [facility] Group [facility]ispecialty Care - [facility] [address] [facility] [address] [place] [phone] Brian Denise MD [address] [place] [address] [place] [id number] Health Maintenance Due Date Last Done Comments Cervical Cancer Screening Pap Smear (Age 30 to 64) Every 3 Years 1978 Colorectal Cancer Screening Colonoscopy (10 Years) 1978 Lipid Panel 1978 Annual Physical 1981 Diabetes: Retinopathy Eye Exam 1996 Cervical Cancer Screening Pap with HPV Testing (Age 30 to 64) Every 5 Years 2008 Cervical Cancer Screening with HPV 2008 Mammogram Screening 2018 COVID-19 Vaccine ( season) 2024 Influenza Adult (#1) 2024 11/27/2023, 02/03/2023, 12/27/2021 Hemoglobin A1C 03/17/2025 09/14/2024, 04/2 10/2024, 02/16/2024, Additional history exists DTaP, Tdap and Td Vaccines (6 - Td or Tdap) 07/10/2027 07/09/2017, 06/18/1984, 08/30/1980, Additional history exists Hepatitis B Vaccines Completed 2023, 10/06/2022, 04/18/2021 Pneumococcal Vaccine: Pediatrics (0 to 5 Years) and At-Risk Patients (6 to 49 Years) Completed 2023, 04/18/2021, 03/03/2018, Additional history exists Hepatitis C Completed 10/26/2024, 08/24, 09/14/2024, Additional history exists PHQ-2 (Physician [place]) Completed 11/09/2024 Meningococcal B Vaccine Aged Out No l onger eligible based on patient's age to complete this topic Meningococcal Vaccine Aged Out No vincent ragini eligible based on patient's age to complete this topic RSV Immunizations Under 20 Months Aged Out No longer eligible based on patient's age to complete this topic Procedures Procedure Name Priority Date/Time Associated Diagnosis Comments CK (CPK) Routine 11/14/2024 9:40 AM CDT Peritonitis ([facility]) OUTSIDE LAB (SCAN ORDER) 11/08/2024 OUTSIDE LAB (SCAN ORDER) 11/08/2024 OUTSIDE LAB (SCAN ORDER) 11/07/2024 COMPREHENSIVE METABOLIC PANEL Routine 10/30/2024 1:00 PM CDT Pericolitis ([facility]) Bacteremia Staphylococcus aureus infection, multiple-resistant (MRSA) Unresolved pneumonia CBC W/DIFF AUTOMATED Routine 10/30/2024 1:00 PM CDT Pericolitis ([facility]) Bacteremia Staphylococcus aureus infection, multiple-resistant (MRSA) Unresolved pneumonia CK (CPK) Routine 10/30/2024 1:00 PM CDT Pericolitis ([facility]) Bacteremia Staphylococcus aureus infection, multiple-resistant (MRSA) Unresolved pneumonia BASIC METABOLIC PANEL Routine 10/29/2024 6:41 AM CDT CBC W/DIFF AUTOMATED Routine 10/29/2024 6:41 AM CDT POCT GLUCOSE - DOCKED DEVICE Routine 10/29/2024 5:56 AM CDT POCT GLUCOSE - DOCKED DEVICE Routine 10/28/2024 7:46 PM CDT POCT GLUCOSE - DOCKED DEVICE Routine 10/28/2024 3:29 PM CDT BASIC METABOLIC PANEL Routine 10/28/2024 1:35 PM CDT CBC W/DIFF AUTOMATED Routine 10/28/2024 1:35 PM CDT POCT GLUCOSE - DOCKED DEVICE Routine 10/28/2024 11:35 AM CDT POCT GLUCOSE - DOCKED DEVICE Routine 10/28/2024 7:47 AM CDT CULTURE, GENITAL W/ GRAM STAIN Routine 10/27/2024 11:50 PM CDT POCT GLUCOSE - DOCKED DEVICE Routine 10/27/2024 10:40 PM CDT POCT GLUCOSE - DOCKED DEVICE Routine 10/27/2024 3:58 PM CDT POCT GLUCOSE - DOCKED DEVICE Routine 10/27/2024 2:44 PM CDT HEPATITIS B SURFACE ANTIBODY Routine 10/27/2024 12:20 PM CDT HEPATITIS B CORE ANTIBODY Routine 10/27/2024 12:20 PM CDT HEPATITIS B CORE AB IGM Routine 10/27/2024 12:20 PM CDT POCT GLUCOSE - DOCKED DEVICE Routine 10/27/2024 5:30 AM CDT XR CHEST PORTABLE STAT 10/26/2024 8:3 7 PM CDT POCT GLUCOSE - DOCKED DEVICE Routine 10/26/2024 8:29 PM CDT SURG XR FLUORO CV CATH Routine 10/26/2024 8:16 PM CDT INSRT CENT ZARA ACC DEV >AGE 5 10/26/2024 7:42 PM CDT ESRD HEPATITIS PANEL,ACUTE Routine 10/26/2024 7:06 PM CDT POCT GLUCOSE - DOCKED DEVICE Routine 10/26/2024 3:38 PM CDT POCT GLUCOSE - DOCKED DEVICE Routine 10/26/2024 11:21 AM CDT CBC W/DIFF AUTOMATED CAMI 10/26/2024 7:15 AM CDT POCT GLUCOSE - DOCKED DEVICE Routine 10/26/2024 5:16 AM CDT BASIC METABOLIC PANEL Routine 10/26/2024 5:06 AM CDT POCT GLUCOSE - DOCKED DEVICE Routine 10/25/2024 7:54 PM CDT POCT GLUCOSE - DOCKED DEVICE Routine 10/25/2024 5:11 PM CDT XR CHEST PORTABLE STAT 10/25/2024 1:5 0 PM CDT CK (CPK) Routine 10/25/2024 6:47 AM CDT BASIC METABOLIC PANEL Routine 10/25/2024 6:47 AM CDT CBC W/DIFF AUTOMATED Routine 10/25/2024 6:47 AM CDT POCT GLUCOSE - DOCKED DEVICE Routine 10/25/2024 5:57 AM CDT XR CHEST PORTABLE Today 10/25/2024 1:1 8 AM CDT POCT GLUCOSE - DOCKED DEVICE Routine 10/24/2024 8:09 PM CDT POCT GLUCOSE - DOCKED DEVICE Routine 10/24/2024 4:00 PM CDT POCT GLUCOSE - DOCKED DEVICE Routine 10/24/2024 11:44 AM CDT BASIC METABOLIC PANEL Routine 10/24/2024 6:56 AM CDT CBC W/DIFF AUTOMATED Routine 10/24/2024 6:56 AM CDT VANCOMYCIN Routine 10/24/2024 6:56 AM CDT POCT GLUCOSE - DOCKED DEVICE Routine 10/24/2024 5:43 AM CDT XR CHEST PORTABLE Today 10/24/2024 5:4 0 AM CDT TYPE & SCREEN STAT 10/23/2024 10:30 PM CDT CBC W/DIFF AUTOMATED Routine 10/23/2024 10:30 PM CDT POCT GLUCOSE - DOCKED DEVICE Routine 10/23/2024 7:23 PM CDT XR CHEST PORTABLE STAT 10/23/2024 5:3 5 PM CDT POCT GLUCOSE - DOCKED DEVICE Routine 10/23/2024 4:19 PM CDT TROPONIN, QUANT STAT 10/23/2024 3:12 PM CDT INSRT CENT ZARA ACC DEV >AGE 5 10/23/2024 3:00 PM CDT ESRD on hemodialysis ([facility]) Case Notes SCHED BY NADER 10/21/2024 LCS Special Needs LOCAL/MAC ECG 12-LEAD Routine 10/23/2024 12:31 PM CDT TROPONIN, QUANT STAT 10/23/2024 12:14 PM CDT VANCOMYCIN Routine 10/23/2024 12:14 PM CDT CBC W/DIFF AUTOMATED Routine 10/23/2024 12:14 PM CDT BASIC METABOLIC PANEL Routine 10/23/2024 12:14 PM CDT POCT GLUCOSE - DOCKED DEVICE Routine 10/23/2024 11:48 AM CDT POCT GLUCOSE - DOCKED DEVICE Routine 10/23/2024 6:00 AM CDT XR CHEST PORTABLE Today 10/23/2024 5:3 5 AM CDT POCT GLUCOSE - DOCKED DEVICE Routine 10/22/2024 9:05 PM CDT POCT GLUCOSE - DOCKED DEVICE Routine 10/22/2024 6:28 PM CDT XR CHEST PORTABLE STAT 10/22/2024 12:50 PM CDT POCT GLUCOSE - DOCKED DEVICE Routine 10/22/2024 12:33 PM CDT SURG XR FLUORO CV CATH Routine 10/22/2024 12:15 PM CDT CULTURE QUALITY CONTROL LEAD Routine 10/22/2024 11:29 AM CDT CULTURE, ANAEROBIC Routine 10/22/2024 11:29 AM CDT INSERTION PERITONEAL DIALYSIS CATHETER 10/22/2024 10:54 AM CDT INFECTED CATHETER REMOVE PERM CANNULA/CATHETER 10/22/2024 10:54 AM CDT INFECTED CATHETER POTASSIUM, SERUM STAT 10/22/2024 10:06 AM CDT VANCOMYCIN Routine 10/22/2024 10:05 AM CDT CBC W/DIFF AUTOMATED Routine 10/22/2024 10:05 AM CDT BASIC METABOLIC PANEL Routine 10/22/2024 10:05 AM CDT TEST URINE Routine 10/22/2024 8:38 AM CDT POCT GLUCOSE - DOCKED DEVICE Routine 10/22/2024 6:37 AM CDT XR CHEST PORTABLE Today 10/22/2024 4:0 9 AM CDT POCT GLUCOSE - DOCKED DEVICE Routine 10/21/2024 8:03 PM CDT POCT GLUCOSE - DOCKED DEVICE Routine 10/21/2024 3:17 PM CDT XR CHEST PORTABLE STAT 10/21/2024 8:1 7 AM CDT POCT GLUCOSE - DOCKED DEVICE Routine 10/21/2024 6:12 AM CDT CBC W/DIFF AUTOMATED Routine 10/21/2024 3:46 AM CDT BASIC METABOLIC PANEL Routine 10/21/2024 3:46 AM CDT POCT GLUCOSE - DOCKED DEVICE Routine 10/20/2024 8:47 PM CDT XR CHEST PORTABLE Routine 10/20/2024 6:0 8 PM CDT POCT GLUCOSE - DOCKED DEVICE Routine 10/20/2024 6:00 PM CDT MRI KNEE RT WO CON Today 10/20/2024 5: 32 PM CDT POCT GLUCOSE - DOCKED DEVICE Routine 10/20/2024 4:40 PM CDT POCT GLUCOSE - DOCKED DEVICE Routine 10/20/2024 11:48 AM CDT BLOOD GAS, VENOUS Routine 10/20/2024 11:40 AM CDT CULTURE, BACTERIA, BLOOD Routine 10/20/2024 11:24 AM CDT CULTURE, BACTERIA, BLOOD Routine 10/20/2024 11:24 AM CDT XR CHEST PORTABLE STAT 10/20/2024 9:1 8 AM CDT LACTIC ACID STAT 10/20/2024 9:05 AM CDT POCT GLUCOSE - DOCKED DEVICE Routine 10/20/2024 8:58 AM CDT POCT GLUCOSE - DOCKED DEVICE Routine 10/20/2024 4:29 AM CDT BASIC METABOLIC PANEL Routine 10/20/2024 3:08 AM CDT CBC W/DIFF AUTOMATED Routine 10/20/2024 3:08 AM CDT TROPONIN, QUANT TIMED 10/20/2024 1:50 AM CDT TROPONIN, QUANT TIMED 10/19/2024 10:37 PM CDT ECG 12-LEAD Routine 10/19/2024 9:59 PM CDT POCT GLUCOSE - DOCKED DEVICE Routine 10/19/2024 7:36 PM CDT XR CHEST PORTABLE Routine 10/19/2024 5:1 9 PM CDT POCT GLUCOSE - DOCKED DEVICE Routine 10/19/2024 5:06 PM CDT IR CHEST TUBE INSERTION Today 10/19/2024 4:45 PM CDT AMYLASE FLUID Routine 10/19/2024 4:33 PM CDT LDH BODY FLUID Routine 10/19/2024 4:33 PM CDT HC PH BODY FLUID Routine 10/19/2024 4:33 PM CDT HC BODY FLUID CULTURE Routine 10/19/2024 4:33 PM CDT PROTEIN TOTAL FLUID Routine 10/19/2024 4 :33 PM CDT CELL COUNT W/ DIFF BODY FLUID Routine 10/19/2024 4:33 PM CDT US CHEST Today 10/19/2024 3:14 PM CDT TRANSFUSE RED BLOOD CELLS Routine 10/19/2024 1:26 PM CDT POCT GLUCOSE - DOCKED DEVICE Routine 10/19/2024 11:32 AM CDT PARTIAL THROMBOPLASTIN TIME,PTT Routine 10/19/2024 11:21 AM CDT PROTHROMBIN TIME, VENOUS Routine 10/19/2024 11:21 AM CDT TYPE & SCREEN STAT 10/19/2024 9:14 AM CDT CELL COUNT W/ DIFF BODY FLUID Routine 10/19/2024 8:00 AM CDT BASIC METABOLIC PANEL Routine 10/19/2024 6:48 AM CDT CBC W/DIFF AUTOMATED Routine 10/19/2024 6:48 AM CDT VANCOMYCIN Routine 10/19/2024 6:48 AM CDT POCT GLUCOSE - DOCKED DEVICE Routine 10/19/2024 6:05 AM CDT POCT GLUCOSE - DOCKED DEVICE Routine 10/19/2024 2:57 AM CDT CYTOLOGY GENERIC Routine 10/19/2024 12:00 AM CDT CYTOLOGY GENERIC Routine 10/19/2024 12:00 AM CDT URINE BACTERIA CULTURE Routine 10/18/2024 10:12 PM CDT HC URINALYSIS AUTO W/O MICRO Routine 10/18/2024 10:12 PM CDT POCT GLUCOSE - DOCKED DEVICE Routine 10/18/2024 7:[address] CHEST+ABD+PEL WO CON STAT 10/18/2024 5:28 PM CDT POCT GLUCOSE - DOCKED DEVICE Routine 10/18/2024 4:12 PM CDT THROMBIN TIME, PLASMA Routine 10/18/2024 2:54 PM CDT DRVVT CONFIRMATION Routine 10/18/2024 2: 54 PM CDT HEXAGONAL PHASE CONFIRM Routine 10/18/2024 2:54 PM CDT CARDIOLIPIN ANTIBODIES (IGG,IGA,IGM) Routine 10/18/2024 2:54 PM CDT PROTHROMBIN GENE MUTATION Routine 10/18/2024 2:54 PM CDT FACTOR X Routine 10/18/2024 2:54 PM CDT FACTOR V LEIDEN W/ REFLEX Routine 10/18/2024 2:54 PM CDT ANTITHROMBIN III ACTIVITY Routine 10/18/2024 2:54 PM CDT PROTEIN S ACTIVITY FUNCTIONAL Routine 10/18/2024 2:54 PM CDT PROTEIN C, ACTIVITY Routine 10/18/2024 2 :54 PM CDT LUPUS ANTICOAGULANT EVAL W/RFX Routine 10/18/2024 2:54 PM CDT RHEUMATOID FACTOR, QUANT Routine 10/18/2024 2:54 PM CDT CULTURE, BACTERIA, BLOOD Routine 10/18/2024 2:00 PM CDT FERRITIN Routine 10/18/2024 2:00 PM CDT BLOOD SMEAR INTERPRETATION BY Routine 10/18/2024 2:00 PM CDT CYCLIC CITRULLINATED PEPTIDE (CCP)ANTIBODY(IGG) Routine 10/18/2024 2:00 PM CDT ANTINUCLEAR ANTIBODY WI RFX Routine 10/18/2024 2:00 PM CDT PHOSPHORUS, INORGANIC PHOSPHATE Routine 10/18/2024 2:00 PM CDT VANCOMYCIN Routine 10/18/2024 2:00 PM CDT COMPREHENSIVE METABOLIC PANEL Routine 10/18/2024 2:00 PM CDT CBC W/DIFF AUTOMATED Routine 10/18/2024 2:00 PM CDT POCT GLUCOSE - DOCKED DEVICE Routine 10/18/2024 11:24 AM CDT POCT GLUCOSE - DOCKED DEVICE Routine 10/18/2024 9:00 AM CDT PATHOLOGY Routine 10/18/2024 12:00 AM CDT POCT GLUCOSE - DOCKED DEVICE Routine 10/17/2024 7:36 PM CDT POCT GLUCOSE - DOCKED DEVICE Routine 10/17/2024 5:18 PM CDT HEPATIC FUNCTION PANEL Routine 10/17/2024 3:17 PM CDT AMMONIA Routine 10/17/2024 3:17 PM CDT POCT GLUCOSE - DOCKED DEVICE Routine 10/17/2024 12:29 PM CDT XR HAND LT 3V Today 10/17/2024 12:23 PM CDT USV ZARA DUPLEX UP EXT LT Today 10/17/2024 8:59 AM CDT COMPREHENSIVE METABOLIC PANEL Routine 10/17/2024 7:10 AM CDT CBC W/DIFF AUTOMATED Routine 10/17/2024 7:10 AM CDT VANCOMYCIN Routine 10/17/2024 7:10 AM CDT POCT GLUCOSE - DOCKED DEVICE Routine 10/17/2024 6:35 AM CDT POCT GLUCOSE - DOCKED DEVICE Routine 10/16/2024 8:51 PM CDT USE ECHOCARDIOGRAM Today 10/16/2024 5: 02 PM CDT POCT GLUCOSE - DOCKED DEVICE Routine 10/16/2024 4:59 PM CDT CULTURE, BACTERIA, BLOOD Routine 10/16/2024 2:59 PM CDT CULTURE, BACTERIA, BLOOD Routine 10/16/2024 1:10 PM CDT TROPONIN, QUANT TIMED 10/16/2024 1:10 PM CDT POCT GLUCOSE - DOCKED DEVICE Routine 10/16/2024 11:12 AM CDT ECG 12-LEAD STAT 10/16/2024 8:13 AM CDT TROPONIN, QUANT STAT 10/16/2024 8:09 AM CDT COMPREHENSIVE METABOLIC PANEL Routine 10/16/2024 8:09 AM CDT CBC W/DIFF AUTOMATED Routine 10/16/2024 8:09 AM CDT POCT GLUCOSE - DOCKED DEVICE Routine 10/16/2024 6:09 AM CDT POCT GLUCOSE - DOCKED DEVICE Routine 10/15/2024 7:36 PM CDT POCT GLUCOSE - DOCKED DEVICE Routine 10/15/2024 3:44 PM CDT TYPE & SCREEN STAT 10/15/2024 12:20 PM CDT HEMOGLOBIN AND HEMATOCRIT Routine 10/15/2024 12:20 PM CDT CELL COUNT W/ DIFF BODY FLUID Routine 10/15/2024 12:05 PM CDT POCT GLUCOSE - DOCKED DEVICE Routine 10/15/2024 11:39 AM CDT COMPREHENSIVE METABOLIC PANEL Routine 10/15/2024 7:16 AM CDT CBC W/DIFF AUTOMATED Routine 10/15/2024 7:16 AM CDT VANCOMYCIN Routine 10/15/2024 7:16 AM CDT POCT GLUCOSE - DOCKED DEVICE Routine 10/15/2024 6:24 AM CDT POCT GLUCOSE - DOCKED DEVICE Routine 10/14/2024 7:54 PM CDT POCT GLUCOSE - DOCKED DEVICE Routine 10/14/2024 4:05 PM CDT POCT GLUCOSE - DOCKED DEVICE Routine 10/14/2024 11:06 AM CDT VANCOMYCIN Routine 10/14/2024 5:10 AM CDT HEPATITIS B POST-VACCINE ANTIBODY Routine 10/14/2024 5:10 AM CDT HEPATITIS B SURFACE AG, EIA Routine 10/14/2024 5:10 AM CDT FOLIC ACID SERUM Routine 10/14/2024 5:10 AM CDT VITAMIN B-12 Routine 10/14/2024 5:10 AM CDT TRANSFERRIN Routine 10/14/2024 5:10 AM CDT FERRITIN Routine 10/14/2024 5:10 AM CDT IRON SAT PANEL (IRON,IBC,%SAT) Routine 10/14/2024 5:10 AM CDT POCT GLUCOSE - DOCKED DEVICE Routine 10/14/2024 4:27 AM CDT POCT GLUCOSE - DOCKED DEVICE Routine 10/14/2024 1:14 AM CDT POCT GLUCOSE - DOCKED DEVICE Routine 10/13/2024 7:26 PM CDT HC BODY FLUID CULTURE Routine 10/13/2024 6:17 PM CDT CELL COUNT W/ DIFF BODY FLUID Routine 10/13/2024 6:17 PM CDT PHOSPHORUS, INORGANIC PHOSPHATE Routine 10/13/2024 5:39 PM CDT MAGNESIUM Routine 10/13/2024 5:39 PM CDT BASIC METABOLIC PANEL STAT 10/13/2024 5:39 PM CDT POCT GLUCOSE - DOCKED DEVICE Routine 10/13/2024 3:59 PM CDT POCT GLUCOSE - DOCKED DEVICE Routine 10/13/2024 3:55 PM CDT POCT GLUCOSE - DOCKED DEVICE Routine 10/13/2024 3:48 PM CDT CULTURE, BLOOD, PCR PANEL Routine 10/13/2024 3:42 PM CDT CULTURE, BACTERIA, BLOOD Routine 10/13/2024 3:42 PM CDT CULTURE, BACTERIA, BLOOD STAT 10/13/2024 3:42 PM CDT MRSA SCREENING Routine 10/13/2024 2:20 PM CDT POCT GLUCOSE - DOCKED DEVICE Routine 10/13/2024 11:29 AM CDT PHOSPHORUS, INORGANIC PHOSPHATE Routine 10/13/2024 9:22 AM CDT BASIC METABOLIC PANEL Routine 10/13/2024 9:22 AM CDT CBC W/DIFF AUTOMATED Routine 10/13/2024 9:22 AM CDT CTA CHEST STAT 10/13/2024 8:08 AM CDT ECG 12-LEAD Routine 10/13/2024 7:00 AM CDT POCT GLUCOSE - DOCKED DEVICE Routine 10/13/2024 6:16 AM CDT CYTOLOGY GENERIC Routine 10/13/2024 12:00 AM CDT POCT GLUCOSE - DOCKED DEVICE Routine 10/12/2024 8:03 PM CDT POCT GLUCOSE - DOCKED DEVICE Routine 10/12/2024 3:48 PM CDT POCT GLUCOSE - DOCKED DEVICE Routine 10/12/2024 10:52 AM CDT HEPARIN, ANTI XA, UFH TIMED 10/12/2024 8:46 AM CDT PROTHROMBIN TIME, VENOUS Routine 10/12/2024 8:46 AM CDT BASIC METABOLIC PANEL Routine 10/12/2024 8:46 AM CDT CBC W/DIFF AUTOMATED Routine 10/12/2024 8:46 AM CDT POCT GLUCOSE - DOCKED DEVICE Routine 10/12/2024 6:03 AM CDT HEPARIN, ANTI XA, UFH TIMED 10/12/2024 1:20 AM CDT POCT GLUCOSE - DOCKED DEVICE Routine 10/11/2024 8:45 PM CDT HEPARIN, ANTI XA, UFH TIMED 10/11/2024 5:46 PM CDT POCT GLUCOSE - DOCKED DEVICE Routine 10/11/2024 4:[address] HEAD WO CON STAT 10/11/2024 3:25 PM CDT XR KNEE RT 2V Today 10/11/2024 3:12 PM CDT XR HAND RT 3V Today 10/11/2024 3:12 PM CDT POCT GLUCOSE - DOCKED DEVICE Routine 10/11/2024 1:47 PM CDT POCT GLUCOSE - DOCKED DEVICE Routine 10/11/2024 1:20 PM CDT POCT GLUCOSE - DOCKED DEVICE Routine 10/11/2024 11:19 AM CDT PROTHROMBIN TIME, VENOUS STAT 10/11/2024 10:49 AM CDT HEPARIN, ANTI XA, UFH STAT 10/11/2024 10:49 AM CDT USV ZARA DUPLEX UP EXT RT STAT 10/11/2024 9:11 AM CDT POCT GLUCOSE - DOCKED DEVICE Routine 10/11/2024 6:45 AM CDT POCT GLUCOSE - DOCKED DEVICE Routine 10/11/2024 6:23 AM CDT BASIC METABOLIC PANEL Routine 10/11/2024 6:15 AM CDT CBC W/DIFF AUTOMATED Routine 10/11/2024 6:15 AM CDT POCT GLUCOSE - DOCKED DEVICE Routine 10/11/2024 1:32 AM CDT POCT GLUCOSE - DOCKED DEVICE Routine 10/11/2024 1:02 AM CDT POCT GLUCOSE - DOCKED DEVICE Routine 10/10/2024 11:48 PM CDT ECG 12-LEAD STAT 10/10/2024 11:04 PM CDT BASIC METABOLIC PANEL STAT 10/10/2024 6:57 PM CDT CBC W/DIFF AUTOMATED STAT 10/10/2024 6:57 PM CDT XR HAND RT 3V STAT 10/10/2024 6:37 PM CDT XR WRIST RT MIN 3V STAT 10/10/2024 6: 37 PM CDT from Last 3 Months Results * (ABNORMAL) CK (CPK) (11/14/2024 9:40 AM CDT) Only the most recent of3 resultswithin the time period is included. CPK 293(H) 21 - 215 U/L 11/14/2024 10:51 AM CDT [facility] 11/14/2024 9:40 AM CDT Minh Mccarthy MD LABORATORY Final Result [facility] [address] [place] [address], [place] [phone] * OUTSIDE LAB (SCAN ORDER) (11/08/2024) Only the most recent of3 resultswithin the time period is included. 11/08/2024 [facility] Scanned SCANNING Final Resu lt * (ABNORMAL) COMPREHENSIVE METABOLIC PANEL (10/30/2024 1:00 PM CDT) Only the most recent of5 resultswithin the time period is included. GLUCOSE 116(H) 70 - 99 MG/DL 10/30/2024 3:[address] [facility] BUN 17 7 - 18 MG/DL 10/30/2024 3:[address] [facility] CREATININE S/P/B 6.88(HH) 0.55 - 1.02 MG/DL 10/30/2024 3:[address] [facility] Comment: Critical Result(s) Called at: 15:34:22 on 10/30/2024 by: KAIN QUINN to and read back by:NADER JOHNSON SODIUM S/P/B 138 136 - 145 MMOL/L 10/30/2024 3:[address] [facility] POTASSIUM S/P/B 3.9 3.5 - 5.1 MMOL/L 10/30/2024 3:[address] [facility] CHLORIDE S/P/B 100 97 - 115 MMOL/L 10/30/2024 3:[address] [facility] CO2 33.3(H) 21 - 32 MMOL/L 10/30/2024 3:[address] [facility] CALCIUM S/P/B 8.9 8.5 - 10.1 MG/DL 10/30/2024 3:[address] [facility] BILIRUBIN TOTAL S/P/B 0.5 0.2 - 1.2 MG/DL 10/30/2024 3:[address] [facility] Comment: THIS ASSAY IS NOT RECOMMENDED FOR PATIENTS UNDERGOING TREATMENT WITH ELTROMBOPAG DUE TO THE POTENTIAL FOR FALSELY ELEVATED RESULTS. TOTAL PROTEIN S/P/B 8.0 6.4 - 8.2 G/DL 10/30/2024 3:[address] [facility] ALBUMIN S/P/B 1.9(L) 3.4 - 5.0 G/DL 10/30/2024 3:[address] [facility] AST 29 15 - 37 U/L 10/30/2024 3:[address] [facility] ALT 18 14 - 55 U/L 10/30/2024 3:[address] [facility] ALKALINE PHOSPHATASE S/P/B 311(H) 50 - 136 U/L 10/30/2024 3:[address] [facility] ANION GAP 4.7 2 - 10 MMOL/L 10/30/2024 3:[address] [facility] BUN CREATININE RATIO 2.5(L) 6 - 26 10/30/2024 3:[address] [facility] A/G RATIO 0.3(L) 1.0 - 2.0 RATIO 10/30/2024 3:[address] [facility] GFR ESTIMATE 7(L) >90 ML/MIN/1.7 3 M2 10/30/2024 3:[address] [facility] Comment: NOTE: eGFR is not calculated for patients <18 years of age or gender unknown. This is an estimated GFR calculation using the new CKD EPI creatinine equation without race and so does not require a correction factor for race. This estimated GFR should not be used for calculating drug doses. 10/30/2024 1:00 PM CDT Minh Mccarthy MD LABORATORY Final Result [facility] [address] [place] [address], [place] [phone] * (ABNORMAL) CBC W/DIFF AUTOMATED (10/30/2024 1:00 PM CDT) Only the most recent of20 resultswithin the time period is included. WBC 13.14(H) 4.5 - 11.0 x10'3/uL 10/30/2024 2:[address] [facility] RBC 3.53(L) 4.20 - 5.40 x10'6/uL 10/30/2024 2:[address] [facility] HGB 8.9(L) 12.0 - 16.0 G/DL 10/30/2024 2:[address] [facility] HCT 29.8(L) 38.0 - 48.0 % 10/30/2024 2:[address] [facility] MCV 84.4 81.0 - 99.0 FL 10/30/2024 2:[address] [facility] MCH 25.2(L) 27.0 - 31.0 PG 10/30/2024 2:[address] [facility] MCHC 29.9(L) 32.0 - 36.0 G/DL 10/30/2024 2:[address] [facility] RDW 15.7(H) 11.5 - 14.5 % 10/30/2024 2:[address] [facility] PLT 464(H) 130 - 400 x10'3/uL 10/30/2024 2:[address] [facility] MPV 9.7 9.3 - 12.2 FL 10/30/2024 2:[address] [facility] DIFFERENTIAL TYPE AUTOMATED DIFFERENTIAL 10/30/2024 2:[address] [facility] NEUTROPHILS % 66.7 % 10/30/2024 2:[address] [facility] LYMPHOCYTES % 20.5 % 10/30/2024 2:[address] [facility] MONOCYTES % 7.3 % 10/30/2024 2:[address] [facility] EOSINOPHILS 3.5 % 10/30/2024 2:[address] [facility] BASOPHILS 1.2 % 10/30/2024 2:[address] [facility] IMMATURE GRANS % 0.8 % 10/31/19 2:[address] [facility] ABS. NEUTROPHILS 8.75(H) 1.80 - 7.70 x10'3/uL 10/30/2024 2:[address] [facility] ABS. LYMPHOCYTES 2.70 1.00 - 4.80 x10'3/uL 10/30/2024 2:[address] [facility] ABS. MONOCYTES 0.96(H) 0.24 - 0.86 x10'3/uL 10/30/2024 2:[address] [facility] ABS. EOSINOPHILS 0.46(H) 0.04 - 0.36 x10'3/uL 10/30/2024 2:[address] [facility] ABS. BASOPHILS 0.16(H) 0.01 - 0.08 x10'3/uL 10/30/2024 2:[address] [facility] ABS. IMMATURE GRANULOCYTES 0.11 0.00 - 0.49 x10'3/uL 10/30/2024 2:[address] [facility] 10/30/2024 1:00 PM CDT us Minh Mccarthy MD LABORATORY Final Result [facility] [address] [place] [address], [place] [phone] * (ABNORMAL) BASIC METABOLIC PANEL (10/29/2024 6:41 AM CDT) Only the most recent of15 resultswithin the time period is included. GLUCOSE 101(H) 70 - 99 MG/DL 10/29/2024 7:[address] [facility] BUN 25(H) 7 - 18 MG/DL 10/29/2024 7:[address] [facility] CREATININE S/P/B 8.79(HH) 0.55 - 1.02 MG/DL 10/29/2024 7:[address] [facility] Comment:NOT CALLED PER [employer] SODIUM S/P/B 137 136 - 145 MMOL/L 10/29/2024 7:[address] [facility] POTASSIUM S/P/B 3.8 3.5 - 5.1 MMOL/L 10/29/2024 7:[address] [facility] CHLORIDE S/P/B 101 97 - 115 MMOL/L 10/29/2024 7:[address] [facility] CO2 31.6 21 - 32 MMOL/L 10/29/2024 7:[address] [facility] CALCIUM S/P/B 8.4(L) 8.5 - 10.1 MG/DL 10/29/2024 7:[address] [facility] ANION GAP 4.4 2 - 10 MMOL/L 10/29/2024 7:[address] [facility] BUN CREATININE RATIO 2.8(L) 6 - 10/29/2024 7:[address] [facility] GFR ESTIMATE 5(L) >90 ML/MIN/1.7 3 M2 10/29/2024 7:[address] [facility] Comment: NOTE: eGFR is not calculated for patients <18 years of age or gender unknown. This is an estimated GFR calculation using the new CKD EPI creatinine equation without race and so does not require a correction factor for race. This estimated GFR should not be used for calculating drug doses. 10/29/2024 6:41 AM CDT Maria Dumont DO LABORATORY Final Result [facility] [address] [place] [address], [place] [phone] * (ABNORMAL) POCT glucose (10/29/2024 5:56 AM CDT) Only the most recent of83 resultswithin the time period is included. GLUCOSE POC 101(H) 70 - 99 mg/dL 10/29/2024 6:[address] [facility] 10/29/2024 5:56 AM CDT Jose Murdock MD POCT ORDERABLES - DEVICE Vicki l Result [facility] [address] [place] [address], [place] [phone] * CULTURE, GENITAL W/ GRAM STAIN (10/27/2024 11:50 PM CDT) SPEC DESCRIPTION VAGINAL SPECIMEN 10/28/2024 12:[address] [facility] SPECIAL REQUESTS NO SPECIAL REQUEST 10/28/2024 12:[address] [facility] GRAM STAIN RESULT NEGATIVE FOR BACTERIAL VAGINOSIS 10/28/2024 2:[address] [facility] GRAM STAIN RESULT NO YEAST SEEN 10/28/2024 2:[address] [facility] CULTURE RESULT LIGHT GROWTH OF NORMAL SANG PRESENT 10/30/2024 11:[address] [facility] VAGINAL STRUCTURE / Unknown 10/27/2024 11:50 PM CDT 10/28/2024 1:40 AM CDT us Chase Aponte DO MICROBIOLOGY - GENERAL ORDERABLE S Final Result [facility] [address] [place] [address], [place] [phone] * HEPATITIS B SURFACE ANTIBODY (10/27/2024 12:20 PM CDT) HEP B SURFACE AB REACTIVE 10/27/2024 2:[address] [facility] 10/27/2024 12:2 0 PM CDT us Candis Moreno MD LABORATORY Final Result [facility] [address] [place] [address], [place] [phone] * HEPATITIS B CORE ANTIBODY (10/27/2024 12:20 PM CDT) HEP B CORE TOTAL AB NON-REACTI VE NON-REACTI VE 10/27/2024 2:[address] [facility] 10/27/2024 12:2 0 PM CDT us Candis Moreno MD LABORATORY Final Result Performing Organization Address City/[facility]/ZIP Co de Phone Number [facility] [address] [place] [address], [place] [phone] * HEPATITIS B CORE AB IGM (10/27/2024 12:20 PM CDT) HEP B CORE IGM NON-REACTI VE NON-REACTI VE 10/27/2024 2:[address] [facility] 10/27/2024 12:2 0 PM CDT us Candis Moreno MD LABORATORY Final Result Performing Organization Address City/[facility]/[place] Co de Phone Number [facility] [address] [place] [address], [place] [phone] * XR CHEST PORTABLE (10/26/2024 8:37 PM CDT) Only the most recent of12 resultswithin the time period is included. Anatomical Region Laterality Modality Chest Radiographic Cindy ging 10/26/2024 8:58 PM CDT Impressions 10/26/2024 9:03 PM CDT Impression: 1. Line placement as above. 2. Small left pleural effusion. 3. Pulmonary vascular congestion. Referred By: Interpreted By: Demarco Barnes MD, 10/26/2024 8:58 PM Narrative 10/26/2024 9:03 PM CDT [address] [address] Examination: Chest 1 view portable History: Line placement DATE/TIME: 10/26/2024 8:26 PM Comparison: October 25, 2024 Technique: AP upright portable view of the chest was obtained. Findings: Dialysis catheter placed via left IJ approach with lead tip in the right atrium. Heart size is normal. Mild pulmonary vascular congestion. No pulmonary consolidation or pneumothorax. Small left pleural effusion. No right pleural effusion. Procedure Note Demarco Barnes MD - 10/26/[address] [address] Examination: Chest 1 view portable History: Line placement DATE/TIME: 10/26/2024 8:26 PM Comparison: October 25, 2024 Technique: AP upright portable view of the chest was obtained. Findings: Dialysis catheter placed via left IJ approach with lead tip inthe right atrium. Heart size is normal. Mild pulmonary vascularcongestion. No pulmonary consolidation or pneumothorax. Small left pleuraleffusion. No right pleural effusion. Impression: 1. Line placement as above. 2. Small left pleural effusion. 3. Pulmonary vascular congestion. Referred By: Interpreted By: Demarco Barnes MD, 10/26/2024 8:58 PM us Raulito Valdez MD GENERAL IMAGING Final Result * SURG XR FLUORO CV CATH (10/26/2024 8:16 PM CDT) Only the most recent of2 resultswithin the time period is included. Narrative Radiology, Technologist - 10/26/2024 8:17 PM CDT This report does not contain a radiologist's interpretation. Please review associated procedure and/or operative report. us Raulito Valdez MD IMAGES ONLY Final Result * HEPATITIS PANEL,ACUTE (10/26/2024 7:06 PM CDT) HEPATITIS B SURFACE AG NON-REACTI VE NON-REACTI VE 10/26/2024 10:[address] [facility] HEP B CORE IGM NON-REACTI VE NON-REACTI VE 10/26/2024 10:[address] [facility] HAV IGM NON-REACTI VE NON-REACTI VE 10/26/2024 10:[address] [facility] HEPATITIS C AB NON-REACTI VE NON-REACTI VE 10/26/2024 10:[address] [facility] 10/26/2024 7:06 PM CDT us Candis Moreno MD LABORATORY Final Result [facility] [address] [place] [address], [place] [phone] * Vancomycin Random Level (10/24/2024 6:56 AM CDT) Only the most recent of8 resultswithin the time period is included. Pathologist [facility] VANCOMYCIN RANDOM 17.3 MCG/ML 10/24/2024 7:[address] [facility] Comment:NO THERAPEUTIC RANGE AVAILABLE LAST DOSE UNKNOWN LAST DOSE 10/24/2024 10:[address] [facility] 10/24/2024 6:56 AM CDT us Amos Cline MD LABORATORY Fin al Result [facility] [address] [place] [address], [place] [phone] * TYPE & SCREEN (10/23/2024 10:30 PM CDT) Only the most recent of3 resultswithin the time period is included. ABO/RH B POSITIVE 10/23/2024 11:[address] [facility] ANTIBODY SCREEN NEGATIVE 10/23/2024 11:[address] [facility] SAMPLE EXPIRATION 10/26/2024,2 359 10/23/2024 11:[address] [facility] 10/23/2024 10:3 0 PM CDT Bubba Crowley MD BLOOD BANK TEST ORDERABLES Vicki l Result Performing Organization Address City/[facility]/ZIP Co de Phone Number [facility] [address] [place] [address], [place] [phone] * (ABNORMAL) TROPONIN, QUANT (10/23/2024 3:12 PM CDT) Only the most recent of6 resultswithin the time period is included. Pathologist [facility] TROPONIN I HIGH SENSITIVITY 70(H) <54 ng/L 10/23/2024 4:[address] [facility] Comment: HIGH DOSES OF BIOTIN, TROPONIN-SPECIFIC AUTOANTIBODIES, AND ANTIBODY THERAPY CONTAINING HAMA MAY INTERFERE WITH THIS TEST RESULT. CORRELATION TO CLINICAL HISTORY AND PRESENTATION RECOMMENDED. 10/23/2024 3:12 PM CDT Anuja Newman MD LABORATORY Final Result [facility] [address] [place] [address], [place] [phone] * ECG 12 lead (10/23/2024 12:31 PM CDT) Only the most recent of5 resultswithin the time period is included. 10/23/2024 12:3 1 PM CDT Narrative [facility] - 10/24/2024 10:[address] [facility] [address] [place] [address] Test Date: 2024-10-23 Pat Name: NIDHI SMART Department: 40 Room: [id number] Gender: Female Radiologic Electronic Specialist: Sq : 1980 Requested By: AMOS CLINE Order Number: [id number] Reading MD: Jamar Sharif Measurements Intervals [place] Rate: 69 P: 12 MI: 143 QRS: 7 QRSD: 93 T: 75 QT: 415 QTc: 447 Interpretive Statements SINUS RHYTHM POSSIBLE ANTERIOR MYOCARDIAL INFARCTION [30 ms Q WAVE IN V3/V4, OR R < 0.2 mV IN V4], OF INDETERMINATE AGE Compared to ECG 10/19/2024 21:59:39 Myocardial infarct finding now present T-wave abnormality no longer present Procedure Note Jamar Sharif MD - 10/24/2024 [facility] [address] [place] [address] Test Date: 2024-10-23 Pat Name: NIDHI SMART Department: 40 Room: [id number] Gender: Female Radiologic Electronic Specialist: : 1980 Requested By: AMOS CLINE Order Number: [id number] Reading MD: Jamar Sharif Measurements Intervals [place] Rate: 69 P: 12 MI: 143 QRS: 7 QRSD: 93 T: 75 QT: 415 QTc: 447 Interpretive Statements SINUS RHYTHM POSSIBLE ANTERIOR MYOCARDIAL INFARCTION [30 ms Q WAVE IN V3/V4, OR R < 0.2mV IN V4], OF INDETERMINATE AGE Compared to ECG 10/19/2024 21:59:39 Myocardial infarct finding now present T-wave abnormality no longer present us Amos Cline MD ECG ORDERABLES Fin al Result [facility] ([facility] * CULTURE QUALITY CONTROL LEAD (10/22/2024 11:29 AM CDT) SPEC DESCRIPTION CATHETER TIP 10/22/2024 11:[address] [facility] SPECIAL REQUESTS NO SPECIAL REQUEST 10/22/2024 11:[address] [facility] CULTURE RESULT NO GROWTH 5 DAYS 10/27/2024 7:[address] [facility] WOUND CATHETER TIP SUBMITTED SPECIMEN / Unknown 10/22/2024 11:29 AM CDT Lv Perez MD MICROBIOLOGY - GENERAL OR DERABLES Final Result Performing Organization Address [facility]/[place] Co de Phone Number [facility] [address] [place] [address], [place] [phone] * CULTURE, ANAEROBIC (10/22/2024 11:29 AM CDT) SPEC DESCRIPTION CATHETER TIP 10/22/2024 11:[address] [facility] SPECIAL REQUESTS NO SPECIAL REQUEST 10/22/2024 11:[address] [facility] CULTURE RESULT NO ANAEROBES ISOLATED AT 5 DAYS. 10/27/2024 6:[address] [facility] WOUND CATHETER TIP SUBMITTED SPECIMEN / Unknown 10/22/2024 11:29 AM CDT us Lv Perez MD MICROBIOLOGY - GENERAL OR DERABLES Final Result [facility] [address] [place] [address], [place] [phone] * POTASSIUM, SERUM (10/22/2024 10:06 AM CDT) POTASSIUM S/P/B 4.5 3.5 - 5.1 MMOL/L 10/22/2024 10:[address] [facility] 10/22/2024 10:0 6 AM CDT us Edinson Claros MD LABORATORY Final Resu lt Performing Organization Address City/[facility]/[place] Co de Phone Number [facility] [address] [place] [address], [place] [phone] * TEST URINE (10/22/2024 8:38 AM CDT) URINE HCG TEST NEGATIVE 10/22/2024 9:[address] [facility] Comment: VERY DILUTE URINE SPECIMENS MAY NOT CONTAIN CHANGE CONTROL MANAGER LEVELS OF HCG. IF IS STILL SUSPECTED, A SERUM HCG TEST IS RECOMMENDED. URINE SPECIMEN FROM [facility] / Unknown 10/22/2024 8:38 AM CDT us Amos Cline MD URINE ORDERABLES Fi nal Result Performing Organization Address [facility] de Phone Number [facility] [address] [place] [address], [place] [phone] * MRI KNEE RT WO CON (10/20/2024 5:32 PM CDT) Anatomical Region Laterality Modality Knee Magnetic Resonan ce 10/21/2024 7:34 AM CDT Impressions 10/21/2024 7:40 AM CDT IMPRESSION: 1. Meniscal evaluation is limited to due to motion. Indeterminate linear signal abnormality posterior horn lateral meniscus could be artifact related to motion, or a small oblique nondisplaced tear. If possible, repeat imaging or MRI arthrogram should be considered. 2. Grade III chondromalacia medial compartment. 3. Acute grade 1 strain medial collateral ligament. Small joint effusion. Ordered By: JAMARI ARTHUR Interpreted By: Britton Fuchs, 10/21/2024 7:34 AM Narrative 10/21/2024 7:40 AM CDT [address] [address] EXAMINATION: MRI RIGHT KNEE WITHOUT CONTRAST EXAM DATE: 10/20/2024 5:10 PM REASON FOR EXAM: Difficulty walking, previous fall Right knee instability COMPARISON: None TECHNIQUE: Multiplanar multisequence imaging of the knee without intravenous contrast. FINDINGS: Soft tissues: Moderate soft tissue swelling. Joint effusion: Small joint effusion. Medial collateral ligament: Acute grade 1 strain. Lateral collateral ligament and biceps femoris tendon: Unremarkable. Iliotibial band: Unremarkable. Cruciate ligaments: Anterior and posterior cruciate ligaments intact. Extensor mechanism: Quadriceps tendinosis, infrapatellar tendinosis, no evidence of tear. Menisci: Meniscal evaluation is limited to due to motion. Indeterminate linear signal abnormality posterior horn lateral meniscus could be artifact related to motion, or a small oblique nondisplaced tear. If possible, repeat imaging or MRI arthrogram should be considered. Cartilage: Grade III chondromalacia medial compartment. Bone marrow: No abnormal marrow signal. Procedure Note Britton Fuchs MD - 10/21/[address] [address] EXAMINATION: MRI RIGHT KNEE WITHOUT CONTRAST EXAM DATE: 10/20/2024 5:10 PM REASON FOR EXAM: Difficulty walking, previous fall Right knee instability COMPARISON: None TECHNIQUE: Multiplanar multisequence imaging of the knee withoutintravenous contrast. FINDINGS: Soft tissues: Moderate soft tissue swelling. Joint effusion: Small joint effusion. Medial collateral ligament: Acute grade 1 strain. Lateral collateral ligament and biceps femoris tendon: Unremarkable. Iliotibial band: Unremarkable. Cruciate ligaments: Anterior and posterior cruciate ligaments intact. Extensor mechanism: Quadriceps tendinosis, infrapatellar tendinosis, noevidence of tear. Menisci: Meniscal evaluation is limited to due to motion. Indeterminatelinear signal abnormality posterior horn lateral meniscus could beartifact related to motion, or a small oblique nondisplaced tear. Ifpossible, repeat imaging or MRI arthrogram should be considered. Cartilage: Grade III chondromalacia medial compartment. Bone marrow: No abnormal marrow signal. IMPRESSION: 1. Meniscal evaluation is limited to due to motion. Indeterminate linearsignal abnormality posterior horn lateral meniscus could be artifactrelated to motion, or a small oblique nondisplaced tear. If possible,repeat imaging or MRI arthrogram should be considered. 2. Grade III chondromalacia medial compartment. 3. Acute grade 1 strain medial collateral ligament. Small jointeffusion. Ordered By: JAMARI ARTHUR Interpreted By: Britton Fuchs, 10/21/2024 7:34 AM us Jamari Arthur MD MRI Final Result * (ABNORMAL) Blood gas, venous (10/20/2024 11:40 AM CDT) PH VENOUS 7.41 7.32 - 7.43 10/20/2024 1:[address] [facility] PCO2 VENOUS 46.0 MMHG 10/20/2024 1:[address] [facility] Comment:NO REFERENCE RANGE H BEEN ESTABLISHED PO2 VENOUS 37.0 MM HG 10/20/2024 1:[address] [facility] Comment:NO REFERENCE RANGE H BEEN ESTABLISHED TOTAL CO2 VENOUS 30.6(H) 22.0 - 26.0 MMOL/L 10/20/2024 1:[address] [facility] VENOUS BASE EXCESS 3.8 MMOL/L 10/20/2024 1:[address] [facility] Comment:NO REFERENCE RANGE H BEEN ESTABLISHED O2 SAT VENOUS 71 % 10/20/2024 1:[address] [facility] Comment:NO REFERENCE RANGE H BEEN ESTABLISHED BICARB VENOUS 29.2(H) 22.0 - 29.0 MMOL/L 10/20/2024 1:[address] [facility] O2 ADMIN VENOUS 28% 1:[address] [facility] 10/20/2024 11:4 0 AM CDT Kathi Pimentel MD LABORATORY Final Res ult [facility] [address] [place] [address], [place] [phone] * CULTURE, BACTERIA, BLOOD (10/20/2024 11:24 AM CDT) Only the most recent of7 resultswithin the time period is included. SPEC DESCRIPTION BLOOD-PEDIA TRIC VOLUME 10/20/2024 11:[address] [facility] SPECIAL REQUESTS NO SPECIAL REQUEST 10/20/2024 11:[address] [facility] CULTURE RESULT NO GROWTH 5 DAYS 10/25/2024 2:[address] [facility] BLOOD SPECIMEN OBTAINED FOR BLOOD CULTURE / Unknown 10/20/2024 11:24 AM CDT 10/20/2024 11:25 AM CDT Chase Aponte DO MICROBIOLOGY - GENERAL ORDERABLE S Final Result [facility] [address] [place] [address], [place] [phone] * LACTIC ACID - SINGLE (10/20/2024 9:05 AM CDT) LACTIC ACID VENOUS 1.2 0.4 - 2.0 MMOL/L 10/20/2024 9:41 AM CDT [facility] 10/20/2024 9:05 AM CDT Chase Aponte DO LABORATORY Final Result [facility] [address] [place] [address], [place] [phone] * IR CHEST TUBE INSERTION (10/19/2024 4:45 PM CDT) Anatomical Region Laterality Modality Chest Interventional R adiology 10/19/2024 4:51 PM CDT Impressions 10/19/2024 4:57 PM CDT =====IMPRESSION:===== 1. Left pleural complex multiloculated septated large collection. 2. Procedure note for 12 Monegasque locking pigtail multipurpose percutaneous drainage catheter catheter placement in the left posterior inferior pleural space with ultrasound guidance. 3. 460 mL of slightly turbid orangeish fluid collected and sent for testing. Catheter placed to [facility] for transport and can be placed to suction on return to the floor. 4. Patient likely require lytic administration for further drainage, which can be performed under direction of the cardiothoracic surgical or pulmonology service, as clinically directed. 5. Please call IR if further questions Ordered By: CANDIS MORENO Interpreted By: Geetha Church MD, 10/19/2024 4:51 PM Narrative 10/19/2024 4:57 PM CDT [facility] [address] [place], [place] [address] Procedure: IR ultrasound-guided pleural/chest tube drainage Exam Date/Time: 10/19/2024 4:45 PM Indication: 44 female the line. Left pleural percutaneous catheter drainage. Complex multiloculated septated pleural collection. Possible empyema versus a subpulmonic effusion. Currently being treated for bacterial peritonitis Comparison: Ultrasound 10/19/2024. CT chest abdomen pelvis 10/18/2024 and CTA chest 10/13/2024 Procedure and findings: Informed verbal and written consent was obtained from the patient, patient's medical power of online merchandising manager. The procedure was discussed including the rationale, alternatives, benefits and risks including but not limited to infection, bleeding, damage to adjacent structures, and failure to place a drain. Timeout was performed. Continuous cardiorespiratory monitoring was performed by the direct supervision of including pulse, blood pressure, and oxygen saturation, under supervision of the interventional radiologist. Total intraprocedure [id number] time with the radiologist was 15 minutes Patient was brought to the procedure room and positioned in a right lateral decubitus position. Initial survey ultrasound was performed redemonstrating a complex multi loculated pleural collection. A low lateral intercostal approach was was chosen and skin entry site marked. Sterile ultrasound technique, and maximum sterile barrier technique including hand hygiene, and skin preparation was employed for the procedure. The procedure was performed with local anesthetic. 1% lidocaine was administered at the skin and deeper soft tissues down to the pleura. A small skin incision was made through which a 5 Monegasque Yueh one-step catheter was advanced under ultrasound guidance into the pleural space. Stylet was removed. Fluid was returned and a wire placed through the Yueh catheter which was removed followed by placement of a Amplatz guidewire. Tract dilatation was performed over the wire followed by advancement of a 12 Monegasque locking pigtail multipurpose percutaneous drainage catheter over the wire. Catheter position was confirmed ultrasound of the pigtail formed and locked. Catheter was secured to skin with 2. 0 Ethilon suture, stay fix. Overlying sterile gauze and Tegaderm was placed. Total of 460 mL of slightly turbid orangeish fluid was collected via vacuum bottle and sent for testing. The catheter was placed to [facility] for transported back to the floor. Sr Technical Sales Consultant: Dr. Church No immediate complication Procedure Note Geetha Church MD - 10/19/[address] [address] Procedure: IR ultrasound-guided pleural/chest tube drainage Exam Date/Time: 10/19/2024 4:45 PM Indication: 44 female the line. Left pleural percutaneous catheterdrainage. Complex multiloculated septated pleural collection. Possibleempyema versus a subpulmonic effusion. Currently being treated forbacterial peritonitis Comparison: Ultrasound 10/19/2024. CT chest abdomen pelvis 10/18/2024 andCTA chest 10/13/2024 Procedure and findings: Informed verbal and written consent was obtainedfrom the patient, patient's medical power of online merchandising manager. The procedure wasdiscussed including the rationale, alternatives, benefits and risksincluding but not limited to infection, bleeding, damage to adjacentstructures, and failure to place a drain. Timeout was performed. Continuous cardiorespiratory monitoring was performed by the directsupervision of including pulse, blood pressure, and oxygen saturation,under supervision of the interventional radiologist. Total intraprocedure [id number] time with the radiologist was 15minutes Patient was brought to the procedure room and positioned in a rightlateral decubitus position. Initial survey ultrasound was performedredemonstrating a complex multi loculated pleural collection. A lowlateral intercostal approach was was chosen and skin entry site marked. Sterile ultrasound technique, and maximum sterile barrier techniqueincluding hand hygiene, and skin preparation was employed for theprocedure. The procedure was performed with local anesthetic. 1% lidocainewas administered at the skin and deeper soft tissues down to the pleura. Asmall skin incision was made through which a 5 Monegasque Yueh one-stepcatheter was advanced under ultrasound guidance into the pleural space.Stylet was removed. Fluid was returned and a wire placed through the Yuehcatheter which was removed followed by placement of a Amplatz guidewire. Tract dilatation was performed over the wire followed by advancement of a12 Monegasque locking pigtail multipurpose percutaneous drainage catheter overthe wire. Catheter position was confirmed ultrasound of the pigtail formed andlocked. Catheter was secured to skin with 2. 0 Ethilon suture, stay fix.Overlying sterile gauze and Tegaderm was placed. Total of 460 mL of slightly turbid orangeish fluid was collected viavacuum bottle and sent for testing. The catheter was [facility] for [facility] back to the floor. Sr Technical Sales Consultant: Dr. Church No immediate complication =====IMPRESSION:===== 1. Left pleural complex multiloculated septated large collection. 2. Procedure note for 12 Monegasque locking pigtail multipurpose percutaneousdrainage catheter catheter placement in the left posterior inferiorpleural space with ultrasound guidance. 3. 460 mL of slightly turbid orangeish fluid collected and sent fortesting. [facility]atheter [facility] and can be placed tosuction on return to the floor. 4. Patient likely require lytic administration for further drainage, whichcan be performed under direction of the cardiothoracic surgical orpulmonology service, as clinically directed. 5. Please call IR if further questions Ordered By: CANDIS MORENO Interpreted By: Geetha Church MD, 10/19/2024 4:51 PM Candis Moreno MD INTERVENTIONAL RADIOLOGY Final R esult * PH BODY FLUID (10/19/2024 4:33 PM CDT) Pathologist [facility] SITE PLEURAL FLUID 10/19/2024 4:[address] [facility] Fluid pH 8.0 10/19/2024 7:[address] [facility] Comment: The reference range and other method performance specifications have not been established for this assay on body fluids. The test result should be integrated into the clinical context for interpretation and utilized in comparison to blood concentrations of the analyte as appropriate. PLEURAL FLUID SPECIMEN / Unknown 10/19/2024 4:33 PM CDT us Yosef Padilla DO BODY FLUIDS AND STOOLS ORDERABLE S Final Result [facility] [address] [place] [address], [place] [phone] * LDH BODY FLUID (10/19/2024 4:33 PM CDT) Pathologist [facility] LDH (FLUID) 749 UNITS/L 10/20/2024 10:27 AM CDT [facility] Comment: REFERENCE RANGE NOT ESTABLISHED FOR THIS BODY FLUID. INTERPRET RESULTS WITH CAUTION. DUE TO STORAGE/TRANSPORT CONDITIONS OF SPECIMEN PRIOR TO TESTING, THE RESULTS MAY BE FALSELY DECREASED. SITE PLEURAL FLUID 10/19/2024 4:[address] [facility] PLEURAL FLUID SPECIMEN / Unknown 10/19/2024 4:33 PM CDT Yosef Padilla DO BODY FLUIDS AND STOOLS ORDERABLE S Final Result Performing Organization Address City/State/RUST Co de Phone Number [facility] [address] [place] [address], [place] [phone] [facility] [address] [place] [address], [place] [phone] * AMYLASE FLUID (10/19/2024 4:33 PM CDT) AMYLASE (BODY FLUID) 18 UNITS/L 10/20/2024 10:28 AM CDT [facility] Comment:REFERENCE RANGE NOT ESTABLISHED FOR THIS BODY FLUID. SPECIMEN SOURCE PLEURAL FLUID 10/19/2024 4:[address] [facility] PLEURAL FLUID SPECIMEN / Unknown 10/19/2024 4:33 PM CDT Candis Moreno MD BODY FLUIDS AND STOOLS ORDERABLE S Final Result [facility] [address] [place] [address], [place] [phone] [facility] [address] [place] [address], [place] [phone] * PROTEIN TOTAL FLUID (10/19/2024 4:33 PM CDT) PROTEIN (FLUID) 3.4 G/DL 10:28 AM CDT [facility] Comment:REFERENCE RANGE NOT ESTABLISHED FOR THIS BODY FLUID. SITE: PLEURAL FLUID 10/19/2024 4:[address] [facility] PLEURAL FLUID SPECIMEN / Unknown 10/19/2024 4:33 PM CDT us Yosef Padilla DO BODY FLUIDS AND STOOLS ORDERABLE S Final Result Performing Organization Address City/[facility]/ZIP Co de Phone Number [facility] [address] [place] [address], [place] [phone] [facility] [address] [place] [address], [place] [phone] * CULTURE BODY FLUID W/ GRAM STAIN (10/19/2024 4:33 PM CDT) Only the most recent of2 resultswithin the time period is included. SPEC DESCRIPTION PLEURAL FLUID 10/19/2024 4:[address] [facility] SPECIAL REQUESTS NO SPECIAL REQUEST 10/19/2024 4:[address] [facility] GRAM STAIN RESULT MODERATE WHITE BLOOD CELLS SEEN 10/19/2024 6:[address] [facility] GRAM STAIN RESULT NO ORGANISMS SEEN 10/19/2024 6:[address] [facility] CULTURE RESULT NO GROWTH 5 DAYS 10/24/2024 10:[address] [facility] PLEURAL FLUID SPECIMEN / Unknown 10/19/2024 4:33 PM CDT 10/19/2024 4:44 PM CDT us Yosef Padilla DO MICROBIOLOGY - GENERAL ORDERABLE S Final Result [facility] [address] [facility], [place] [address], * CELL COUNT W/ DIFF BODY FLUID (10/19/2024 4:33 PM CDT) Only the most recent of4 resultswithin the time period is included. SOURCE (FLUID) PLEURAL FLUID 025 4:[address] [facility] VOLUME (FLUID) 1,470.0 mL 10/19/2024 7:[address] [facility] COLOR (FLUID) JACKIE 10/19/2024 7:[address] [facility] TURBIDITY EXTREMELY TURBID 10/19/2024 7:[address] [facility] RBC (FLUID) 14,327 CELLS/UL 10/19/2024 7:[address] [facility] Comment: The reference range and other method performance specifications have not been established for this assay on body fluids. The test result should be integrated into the clinical context for interpretation and utilized in comparison to blood concentrations of the analyte as appropriate. TOTAL NUCLEATED CELL COUNT 2,489 CELLS/UL 10/19/2024 7:[address] [facility] Comment: The reference range and other method performance specifications have not been established for this assay on body fluids. The test result should be integrated into the clinical context for interpretation and utilized in comparison to blood concentrations of the analyte as appropriate. SEGS (FLUID) 73 % 10/19/2024 7:[address] [facility] Comment: The reference range and other method performance specifications have not been established for this assay on body fluids. The test result should be integrated into the clinical context for interpretation and utilized in comparison to blood concentrations of the analyte as appropriate. LYMPHS (FLUID) 4 % 10/19/2024 7:[address] [facility] Comment: The reference range and other method performance specifications have not been established for this assay on body fluids. The test result should be integrated into the clinical context for interpretation and utilized in comparison to blood concentrations of the analyte as appropriate. OTHER MONONUCLEAR CELLS (FLD) 23 % 10/19/2024 7:[address] [facility] Comment: THE FOLLOWING MAY INCLUDE MONOCYTE/MACROPHAGE,PLASMA CELL,MESOTHELIAL CELL,BRONCHIAL LINING CELL,SYNOVIAL LINING CELL,VENTRICULAR LINING CELL,ENDOTHELIAL CELL,SQUAMOUS EPITHELIAL AND OTHER CELLS. The reference range and other method performance specifications have not been established for this assay on body fluids. The test result should be integrated into the clinical context for interpretation and utilized in comparison to blood concentrations of the analyte as appropriate. PLEURAL FLUID SPECIMEN / Unknown 10/19/2024 4:33 PM CDT Yosef Padilla DO BODY FLUIDS AND STOOLS ORDERABLE S Final Result [facility] [address] [place] [address], [place] [phone] * TRANSFUSE RED BLOOD CELLS (10/19/2024 4:28 PM CDT) Candis Moreno MD NURSING TREATMENT ORDERABLES - B LOOD ADMIN Final Result * US CHEST (10/19/2024 3:14 PM CDT) Anatomical Region Laterality Modality Chest Ultrasound 10/19/2024 3:04 PM CDT Impressions 10/19/2024 3:30 PM CDT =====IMPRESSION:===== 1. Left large complex multiloculated multiseptated fluid collection.. 2. Left pleural percutaneous drainage catheter recommended. Ordered By: YOSEF PADILLA Interpreted By: Geetha Church MD, 10/19/2024 3:04 PM Narrative 10/19/2024 3:30 PM CDT [facility] [address] [place], [place] [address] Procedure: Ultrasound chest Exam Date/Time: 10/19/2024 2:09 PM Indication: 44 female. Left pleural effusion. Comparison: CT chest abdomen pelvis 10/18/2024 and 10/13/2024. Technique: Ultrasound of the left posterior chest performed.. Findings: Ultrasound of the left posterior chest was performed initially as survey for requested thoracentesis. There is however a large complex multi loculated multiseptated collection for which a percutaneous chest tube drainage is recommended. Sr Technical Sales Consultant: Dr. Church Procedure Note Geetha Church MD - 10/19/[address] [address] Procedure: Ultrasound chest Exam Date/Time: 10/19/2024 2:09 PM Indication: 44 female. Left pleural effusion. Comparison: CT chest abdomen pelvis 10/18/2024 and 10/13/2024. Technique: Ultrasound of the left posterior chest performed.. Findings: Ultrasound of the left posterior chest was performed initiallyas survey for requested thoracentesis. There is however a large complexmulti loculated multiseptated collection for which a percutaneous chesttube drainage is recommended. Sr Technical Sales Consultant: Dr. Church =====IMPRESSION:===== 1. Left large complex multiloculated multiseptated fluid collection.. 2. Left pleural percutaneous drainage catheter recommended. Ordered By: YOSEF PADILLA Interpreted By: Geetha Church MD, 10/19/2024 3:04 PM us Yosef Padilla DO ULTRASOUND Final Result * PTT, PARTIAL THROMBOPLASTIN TIME (10/19/2024 11:21 AM CDT) PTT 35.0 25.1 - 36.5 SEC 10/19/2024 11:[address] [facility] 10/19/2024 11:2 1 AM CDT us Yosef Padilla DO LABORATORY Final Result Performing Organization Address [facility]UST Co de Phone Number [facility] [address] [place] [address], * (ABNORMAL) PROTIME/INR, VENOUS (10/19/2024 11:21 AM CDT) Only the most recent of3 resultswithin the time period is included. PROTIME 19.1(H) 10.2 - 12.9 SEC 10/19/2024 11:[address] [facility] INR 1.7 10/19/2024 11:[address] [facility] Comment: Recommended INR Therapeutic Goals: 2.0-3.0 Routine Therapy 2.5-3.5 Mechanical Prosthetic Valves (High Risk) 10/19/2024 11:2 1 AM CDT Yosef [facility] Final Result Performing Organization Address [facility] Co de Phone Number [facility] [address] [place] [address], * CYTOLOGY GENERIC (10/19/2024 12:00 AM CDT) Only the most recent of3 resultswithin the time period is included. CYTOLOGY OTHER [facility] Department of Laboratory Medicine [address] [place] [phone] , extension [phone] Pathology Report Non-gynecologic Cytology Report Name: NIDHI SMART Specimen #: [id number] Age: 1 1980 (Age: 44) Location: [facility] Sex: F Procedure Date: 10/19/2024 [place] [employer] [facility] #: [id number] Date Received: 10/21/2024 Date Reported: 10/25/2024 Provider: CANDIS PAZ MD PHD Source: PLEURAL FLUID, LEFT Clinical History: Acute peritoneal peritonitis, bilateral pleural effusions. FINAL DIAGNOSIS: Pleural fluid, left, thoracentesis: - Satisfactory for evaluation. - Negative for malignancy. - Acute inflammation. Gross Description: SPECIMEN RECEIVED: 480 cc's of dark yellow fluid SLIDES PREPARED: 1 ThinPrep and cell block slide(s); all slides were microscopically examined by a pathologist. STAINS: Papanicolaou, H & E Initial cytologic screening, interpretation, and sign out were performed at [facility], [address] [place] [address]. Electronically Signed Out GARRY JOHNSON MD [facility] 10/19/2024 10/21/2024 10: 11 AM CDT Comment:PLEURAL FLUID, LEFT us Candis Moreno MD PATHOLOGY/CYTOLOGY ORDERABLES Fi nal Result [facility] [address] [place] [address], [id number] * (ABNORMAL) URINALYSIS (10/18/2024 10:12 PM CDT) SPECIMEN TYPE URINE CLEAN CATCH 10/18/2024 10:[address] [facility] COLOR (U) LIGHT YELLOW 10/18/2024 10:[address] [facility] TRANSPARENCY TURBID 10/18/2024 10:[address] [facility] SPECIFIC GRAVITY (U) 1.019 1.001 - 1.030 10/18/2024 10:[address] [facility] U PH 7.0 5.0 - 9.0 10/18/2024 10:[address] [facility] LEUKOCYTES (U) 75(A) NEGATIVE 10/18/2024 10:[address] [facility] NITRITES NEGATIVE NEGATIVE 10/18/2024 10:[address] [facility] PROTEIN RANDOM (U) 300(H) <30 MG/DL 10/18/2024 10:[address] [facility] GLUCOSE (U) 300(A) NORMAL MG/DL 10/18/2024 10:[address] [facility] KETONES MG/DL (U) NEGATIVE NEGATIVE MG/DL 10/18/2024 10:[address] [facility] UROBILINOGEN NORMAL NORMAL MG/DL 10/18/2024 10:[address] [facility] BILIRUBIN (U) NEGATIVE NEGATIVE MG/DL 10/18/2024 10:[address] [facility] BLOOD (U) 1+(A) NEGATIVE 10/18/2024 10:[address] [facility] MUCUS RARE /LPF 10/18/2024 10:[address] [facility] WBC/HPF 24(H) <6 /HPF 10/18/2024 10:[address] [facility] WBC CLUMPS PRESENT 10/18/2024 10:[address] [facility] RBC/HPF <1 <6 /HPF 10/18/2024 10:[address] [facility] BACTERIA (U) RARE(A) NONE /HPF 10/18/2024 10:[address] [facility] SQUAMOUS EPITHELIALS MANY /HPF 10/18/2024 10:[address] [facility] URINE SPECIMEN OBTAINED BY CLEAN CATCH PROCEDURE / Unknown 10/18/2024 10:12 PM CDT us Candis Moreno MD URINE ORDERABLES Final Result [facility] [address] [place] [address], [place] [phone] * (ABNORMAL) URINE BACTERIA CULTURE (10/18/2024 10:12 PM CDT) SPEC DESCRIPTION URINE CLEAN CATCH 10/19/2024 3:[address] [facility] SPECIAL REQUESTS NO SPECIAL REQUEST 10/19/2024 3:[address] [facility] CULTURE RESULT >100,000 COL/ML VANCOMYCIN RESISTANT ENTEROCOCCUS FAECIUM FOLLOW ISOLATION PROTOCOL. (A) 10/23/2024 2:[address] [facility] CULTURE RESULT VRE CALLED TO AND REPEATED BACK BY AMISHA WALKER RN 10/23/24 AT 1412. DA 10/23/2024 2:[address] [facility] URINE SPECIMEN OBTAINED BY CLEAN CATCH PROCEDURE / Unknown 10/18/2024 10:12 PM CDT 10/19/2024 4:41 AM CDT Narrative Organism Antibiotic Method Susceptibility Vancomycin resistant enteroc occus faecium AMPICILLIN ESTEVAN (VITEK) >=32: Resistant Vancomycin resistant enteroc occus faecium NITROFURANTOIN ESTEVAN (VITEK) 64: Intermediate Comment:INTERMEDIATE Vancomycin resistant enteroc occus faecium GENT. SYNERGY SCREEN ESTEVAN (VITEK) Sensitive Vancomycin resistant enteroc occus faecium LINEZOLID ESTEVAN (VITEK) 2: Sensitive Vancomycin resistant enteroc occus faecium PENICILLIN G ESTEVAN (VITEK) >=64: Resistant Vancomycin resistant enteroc occus faecium VANCOMYCIN ESTEVAN (VITEK) >=32: Resistant us Gerald Rapp MD MICROBIOLOGY - GENERAL ORDERABL ES Final Result [facility] [address] [place] [address], [place] [phone] * CT CHEST+ABD+PEL WO CON (10/18/2024 5:28 PM CDT) Anatomical Region Laterality Modality Chest, Abdomen, Pelvis Computed Tomography 10/18/2024 5:38 PM CDT Impressions 10/18/2024 5:47 PM CDT IMPRESSION: 1. Large left pleural effusion, significantly worsened from the prior examination. 2. Left upper and lower lobe pneumonia versus atelectasis. 3. Bilateral pulmonary vascular congestion/interstitial edema. 4. Scattered small mixed consolidative and groundglass pulmonary opacities throughout the right lung. This is nonspecific but most suggestive of an infectious/inflammatory process. 5. Cardiomegaly. Trace pericardial effusion. 6. Severe atherosclerotic vascular disease. 7. Diffuse subcutaneous edema suggestive of anasarca. 8. Free fluid within the abdomen and pelvis. 9. Potential area of narrowing versus peristalsis within the transverse colon. Further evaluation with colonoscopy is recommended once it is clinically safe to do so. No bowel obstruction. 10. Mildly prominent bilateral axillary, retroperitoneal, and inguinal lymph nodes. These are nonspecific/indeterminate. These could be reactive. Referred By: Interpreted By: Kip Elena DO, 10/18/2024 5:38 PM Narrative 10/18/2024 5:47 PM CDT [address] [address] EXAMINATION: CT chest/abdomen/pelvis without contrast HISTORY: Shortness of breath. Chest pain. Abdominal pain. COMPARISON: CT chest 10/13/2024. TECHNIQUE: Axial CT images of the chest, abdomen, and pelvis without the use of intravenous contrast . Sagittal and coronal reformatted image sets. A dose lowering technique was used for this procedure, which may include, but is not limited to, dose reduction technique, automated exposure control, the use of degenerative reconstruction, and ALARA/image gently techniques. FINDINGS: Detailed evaluation is limited without the use of intravenous contrast. Chest: There is severe motion artifact which limits detailed evaluation. Large left pleural effusion, significantly worsened from the prior examination. There is left upper and lower lobe pneumonia versus atelectasis. There is bilateral pulmonary vascular congestion/interstitial edema. There are scattered small mixed consolidative and groundglass pulmonary opacities throughout the right lung. This is nonspecific but most suggestive of an infectious/inflammatory process. Continued follow-up is recommended. The heart is enlarged. Trace pericardial effusion. No evidence of pneumomediastinum. Evaluation for mediastinal and hilar lymphadenopathy is not well performed without the use of intravenous contrast. There are bilateral prominent axillary lymph nodes. These are nonspecific but could be reactive. There is diffuse subcutaneous edema suggestive of anasarca. Abdomen/pelvis: Severe motion artifact which limits detailed evaluation. The liver appears normal in size and contour. The gallbladder is surgically absent. The pancreas is not well evaluated without the use of intravenous contrast. The spleen appears normally sized. No visible adrenal masses. The kidneys are not well evaluated without the use of intravenous contrast. No hydronephrosis. Extensive bilateral renal vascular calcifications. Severe atherosclerotic vascular disease of the abdominal branch vessels. The aorta is normal caliber. There are mildly prominent retroperitoneal lymph nodes, nonspecific/indeterminate. No free intraperitoneal air. No bowel obstruction. A percutaneous dialysis catheter is noted with the distal tip in the pelvis. There is free fluid within the abdomen and pelvis. There is contrast material within the colon. The bowel is not well evaluated without the use of intravenous contrast. Potential area of narrowing versus peristalsis within the transverse colon. Further evaluation with colonoscopy is recommended once it is clinically safe to do so. Evaluation for colonic or enteric inflammatory change cannot be performed given the free fluid. Mild diffuse mesenteric edema. There is free pelvic fluid. The urinary bladder is under distended and is not well evaluated. The uterus appears normally sized. Extensive atherosclerotic vascular disease. There are pelvic phleboliths. There is diffuse subcutaneous edema suggestive of anasarca. Mildly prominent bilateral inguinal lymph nodes, technically nonspecific/indeterminate. These could be reactive. Osseous: There are multilevel degenerative changes throughout the spine. No acute osseous abnormalities are identified. Procedure Note Kip Elena, - 10/18/[address] [address] EXAMINATION: CT chest/abdomen/pelvis without contrast HISTORY: Shortness of breath. Chest pain. Abdominal pain. COMPARISON: CT chest 10/13/2024. TECHNIQUE: Axial CT images of the chest, abdomen, and pelvis without the use ofintravenous contrast . Sagittal and coronal reformatted image sets. A dose lowering technique was used for this procedure, which may include,but is not limited to, dose reduction technique, automated exposurecontrol, the use of degenerative reconstruction, and ALARA/image gentlytechniques. FINDINGS: Detailed evaluation is limited without the use of intravenouscontrast. Chest: There is severe motion artifact which limits detailed evaluation.Large left pleural effusion, significantly worsened from the priorexamination. There is left upper and lower lobe pneumonia versusatelectasis. There is bilateral pulmonary vascularcongestion/interstitial edema. There are scattered small mixedconsolidative and groundglass pulmonary opacities throughout the rightlung. This is nonspecific but most suggestive of aninfectious/inflammatory process. Continued follow-up is recommended. Theheart is enlarged. Trace pericardial effusion. No evidence ofpneumomediastinum. Evaluation for mediastinal and hilar lymphadenopathyis not well performed without the use of intravenous contrast. There arebilateral prominent axillary lymph nodes. These are nonspecific but couldbe reactive. There is diffuse subcutaneous edema suggestive ofanasarca. Abdomen/pelvis: Severe motion artifact which limits detailed evaluation.The liver appears normal in size and contour. The gallbladder issurgically absent. The pancreas is not well evaluated without the use ofintravenous contrast. The spleen appears normally sized. No visibleadrenal masses. The kidneys are not well evaluated without the use ofintravenous contrast. No hydronephrosis. Extensive bilateral renalvascular calcifications. Severe atherosclerotic vascular disease of theabdominal branch vessels. The aorta is normal caliber. There are mildlyprominent retroperitoneal lymph nodes, nonspecific/indeterminate. No free intraperitoneal air. No bowel obstruction. A percutaneousdialysis catheter is noted with the distal tip in the pelvis. There isfree fluid within the abdomen and pelvis. There is contrast materialwithin the colon. The bowel is not well evaluated without the use ofintravenous contrast. Potential area of narrowing versus peristalsiswithin the transverse colon. Further evaluation with colonoscopy isrecommended once it is clinically safe to do so. Evaluation for colonicor enteric inflammatory change cannot be performed given the free fluid.Mild diffuse mesenteric edema. There is free pelvic fluid. The urinary bladder is under distended and isnot well evaluated. The uterus appears normally sized. Extensiveatherosclerotic vascular disease. There are pelvic phleboliths. There isdiffuse subcutaneous edema suggestive of anasarca. Mildly prominentbilateral inguinal lymph nodes, technically nonspecific/indeterminate.These could be reactive. Osseous: There are multilevel degenerative changes throughout the spine.No acute osseous abnormalities are identified. IMPRESSION: 1. Large left pleural effusion, significantly worsened from the priorexamination. 2. Left upper and lower lobe pneumonia versus atelectasis. 3. Bilateral pulmonary vascular congestion/interstitial edema. 4. Scattered small mixed consolidative and groundglass pulmonaryopacities throughout the right lung. This is nonspecific but mostsuggestive of an infectious/inflammatory process. 5. Cardiomegaly. Trace pericardial effusion. 6. Severe atherosclerotic vascular disease. 7. Diffuse subcutaneous edema suggestive of anasarca. 8. Free fluid within the abdomen and pelvis. 9. Potential area of narrowing versus peristalsis within the transversecolon. Further evaluation with colonoscopy is recommended once it isclinically safe to do so. No bowel obstruction. 10. Mildly prominent bilateral axillary, retroperitoneal, and inguinallymph nodes. These are nonspecific/indeterminate. These could bereactive. Referred By: Interpreted By: Kip Elena DO, 10/18/2024 5:38 PM Candis Moreno MD CT Final Result * (ABNORMAL) LUPUS ANTICOAGULANT EVAL W/RFX (10/18/2024 2:54 PM CDT) LUPUS ANTICOAGULANT REPORT(A) 10/21/2024 5:28 AM CDT Grid20/20 IHSAN PATINO Comment: A Lupus Anticoagulant is detected since one of the two confirmatory tests is positive. Lupus Anti- coagulants (LA) may be associated with thrombotic events, recurrent , or may be asymptomatic. A bleeding history requires other coagulopathies be excluded. Since LA may be transient, international consensus guidelines suggest waiting at least 12 weeks before retesting to confirm antibody persistence. (J Thromb Haemost 2006: 4; 295). NOTE: Direct oral anticoagulant therapy may cause false positive results. Reference Range: Not Detected For additional information, please refer to http://education.Authorly.Vestiaire [employer]ive/faq/DWA26b5 (This link is being provided for informational/ educational purposes only.) This interpretation is based on the following test results. PTT (LUPUS ANTICOAGULANT) 60(H) <=40 sec 10/21/2024 5:28 AM CDT Grid20/20 IHSAN PATINO Comment: Test Performed by Kirit Wellington, [facility], [address] [place], [place] Lino Rashid M.D., Ph.D., Director of Laboratories , [facility] [id number] DRVVT SCREEN 74(H) <=45 sec 10/21/2024 5:28 AM CDT Grid20/20 IHSAN PATINO 10/18/2024 2:54 PM CDT Candis Moreno MD LABORATORY Final Result [facility] [id number] [place], [place] , * FACTOR V LEIDEN W/ REFLEX (10/18/2024 2:54 PM CDT) FACTOR V LEIDEN NEGATIVE 1:46 AM CDT Grid20/20 IHSAN PATINO Comment: FACTOR V LEIDEN (R506Q) VARIANT NOT DETECTED INTERPRETATION REPORT 10/26/2024 1:46 AM CDT Grid20/20 IHSAN PATINO Comment: INTERPRETATION: This individual is negative (normal) for the Factor V Leiden (R506Q) variant in the Factor V gene. Increased risk of thrombophilia can be caused by a variety of genetic and non-genetic factors not screened for by this assay. Laboratory testing supervised and results monitored by Jarvis Pitts, Ph.D., [facility], [facility], [facility]. VARIANT ANALYSIS: The Factor V Leiden (R506Q) variant [[id number]:c.1601G>A (p.R534Q)] in the Factor V gene is one of the most common causes of inherited thrombophilia. This variant causes resistance to degradation of activated Factor V protein by activated Protein C (APC). The Factor V Leiden (R506Q) variant is detected by amplification of the selected region of the Factor V gene by polymerase chain reaction (PCR) and fluorescent probe hybridization to the targeted region, followed by end-point analysis with a real time PCR system. Although rare, false positive or false negative results may occur. All results should be interpreted in context of clinical findings, relevant history, and other laboratory data. Health care providers, please contact your local [facility] genetic counselor or call [employer] ([phone]) for assistance with interpretation of these results. This test was developed and its analytical performance characteristics have been determined by [facility] [place]. It has not been cleared or approved by the FDA. This assay has been validated pursuant to the CLIA regulations and is used for clinical purposes. Test performed by [facility] [address] [place] [address] Bell Ringer: Brunilda Fuentes MD,PHD,PEMA Test Reported by [facility] [employer], [address] [place] [place] [address] Lino Rashid M.D., Ph.D., Director of Laboratories , CLIA [id number] 10/18/2024 2:54 PM CDT Candis Moreno MD LABORATORY Final Result [facility] [id number] [place] [address], * (ABNORMAL) HEXAGONAL PHASE CONFIRM (10/18/2024 2:54 PM CDT) HEXAGONAL PHASE CONF POSITIVE( A) Negative 10/21/2024 4:54 AM CDT Grid20/20 IHSAN PATINO Comment: Test Performed by [facility] [employer], [address] [place], [place] Lino Rashid M.D., Ph.D., Director of Laboratories , CLIA [id number] 10/18/2024 2:54 PM CDT us Jamari Arthur MD LABORATORY Final Result Performing Organization Address [facility]/ZIP Co de Phone Number [facility] [id number] [place], [place] , [place] [phone] * DRVVT CONFIRMATION (10/18/2024 2:54 PM CDT) DRVVT CONFIRMATION Negative Negative 10/21/2024 4:54 AM CDT Grid20/20 [facility] GuideKEVIN PATINO Comment: Test Performed by [facility], [facility], [address] [place] [address] Lino Rashid M.D., Ph.D., Director of Laboratories , CLIA [id number] 10/18/2024 2:54 PM CDT Jamari Arthur MD LABORATORY Final Result Performing Organization Address [facility]/RUST Co de Phone Number [facility] [id number] [place], [place] , [place] [phone] * CARDIOLIPIN ANTIBODIES (IGG,IGA,IGM) (10/18/2024 2:54 PM CDT) CARDIOLIPIN AB IGG <2.0 <20.0 GPL 2024 10:12 PM CDT Grid20/20 [facility]UD[facility] GuideKEVIN PATINO Comment: U/mL Value Interpretation ----- < 20.0 Antibody not detected > or = 20.0 Antibody detected CARDIOLIPIN AB IGM <2.0 <20.0 MPL 2024 10:12 PM CDT Grid20/20 IHSAN PATINO Comment: U/mL Value Interpretation ----- < 20.0 Antibody not detected > or = 20.0 Antibody detected The antiphospholipid antibody syndrome (APS) is a clinical-pathologic correlation that includes a clinical event (e.g. arterial or venous thrombosis, morbidity) and persistent positive antiphospholipid antibodies (IgM, IgG Cardiolipin or b2GPI antibodies greater than the 99th percentile; or a lupus anticoagulant). International consensus guidelines for APS suggest waiting at least 12 weeks before retesting to confirm antibody persistence. The Systemic Lupus International Collaborating [facility]ics immunological classification criteria for systemic lupus erythematosus (SLE) include testing for isotype IgA, which has yet to be incorporated into APS criteria. Low level antiphospholipid antibodies may sometimes be detected in the setting of infection, drug therapy or aging. For additional information, please refer to http://education.PrintToPeer/faq/NXN760 (This link is being provided for informational/ educational purposes only.) Test Performed by [facility], [facility], [address] [place] [address] Lino Rashid M.D., Ph.D., Director of Laboratories , [facility] [id number] CARDIOLIPIN AB IGA <2.0 <20.0 APL 2024 10:12 PM CDT Grid20/20 IHSAN PATINO Comment: U/mL Value Interpretation ----- < 20.0 Antibody not detected > or = 20.0 Antibody detected 10/18/2024 2:54 PM CDT Candis Moreno MD LABORATORY Final Result [facility] [address] [place] [address] , * RHEUMATOID FACTOR, QUANT (10/18/2024 2:54 PM CDT) RHEUMATOID FACTOR <10 <15 IU/ML 10/18/2024 3:37 PM CDT [facility] 10/18/2024 2:54 PM CDT Jamari Arthur MD LABORATORY Final Result [facility] [address] [place] [address], [place] [phone] * (ABNORMAL) PROTEIN S ACTIVITY FUNCTIONAL (10/18/2024 2:54 PM CDT) Pathologist [facility] PROTEIN S FUNCTIONAL 58(L) 60 - 140 % normal 10/20/2024 9:06 PM CDT Grid20/20 JOSETTE LY Comment: Decreased levels of Protein S activity may be found in patients with hereditary deficiency, warfarin therapy, vitamin K deficiency, liver disease, DIC, or recent thrombosis as well as after surgery. In addition, it may be physiologic in . Test Performed by [facility], [facility], [address] [place] [address] Lino Rashid M.D., Ph.D., Director of Laboratories , [facility] [id number] 10/18/2024 2:54 PM CDT Candis Moreno MD LABORATORY Final Result Grid20/[address] [address], [place] [phone] * PROTHROMBIN GENE MUTATION (10/18/2024 2:54 PM CDT) [facility] PROTHROMBIN GENE MUTATION NEGATIVE 10/26/2024 1:46 AM CDT Grid20/20 IHSAN PATINO Comment: RESULT: [id number] VARIANT NOT DETECTED INTERPRETATION REPORT 10/26/2024 1:46 AM CDT Grid20/20 IHSAN PATINO Comment: INTERPRETATION: This individual is negative (normal) for the H98196H variant in the Prothrombin/Factor II gene. Increased risk of thrombophilia can be caused by a variety of genetic and non-genetic factors not screened for by this assay. Laboratory testing supervised and results monitored by Jarvis Pitts, Ph.D., [facility], [facility], [place]. The H71810C mutation [[id number]: g.10321J>A (c.*97G>A)] in the Prothrombin/Factor II gene is the second most common inherited risk factor for thrombosis occurring in approximately 2% of Caucasians. Presence of the mutation is associated with an elevation of prothrombin levels to about 30% above normal in heterozygotes and to 70% above normal in homozygotes. Prothrombin (B14399L) mutations are detected by amplification of their selected gene regions by polymerase chain reaction (PCR) and fluorescent probe hybridization to the targeted region, followed by melting curve analysis with a real time PCR system. Although rare, false positive or false negative results may occur. All results should be interpreted in context of clinical findings, relevant history, and other laboratory data. Health care providers, please contact your local [facility]' genetic counselor or call [phone] ([phone]) for assistance with interpretation of these results. This test was developed and its analytical performance characteristics have been determined by [facility]. It has not been cleared or approved by the FDA. This assay has been validated pursuant to the CLIA regulations and is used for clinical purposes. Test performed by [facility] [place] [address] [place] [address] Bell Ringer: Brunilda Fuentes MD,PHD,PEMA Test Reported by [facility], [facility] [facility], [address] [place], [place] Lino Rashid M.D., Ph.D., Director of Laboratories , CLIA [id number] 10/18/2024 2:54 PM CDT us Candis Moreno MD LABORATORY Final Result [facility] [address] [place], [place] , * Thrombin Time (10/18/2024 2:54 PM CDT) Pathologist [facility] THROMBIN TIME 19 13 - 19 sec 10/21/2024 5:28 AM CDT [facility] YATES-CHANTIL LY Comment: Test Performed by [facility], [employer], [id number] [place] [address] Lino Rashid M.D., Ph.D., Director of Laboratories , CLIA [id number] 10/18/2024 2:54 PM CDT Jamari Arthur MD LABORATORY Final Result [facility] [address] [place], [place] , [place] [phone] * PROTEIN C, ACTIVITY (10/18/2024 2:54 PM CDT) [facility] PROTEIN C FUNCTIONAL 137 70 - 180 % normal 10/20/2024 9:06 PM CDT [facility] YATES-CHANTIL LY Comment: Test Performed by [facility], [employer], [id number] [place] [address] Lino Rashid M.D., Ph.D., Director of Laboratories , CLIA [id number] 10/18/2024 2:54 PM CDT Candis Moreno MD LABORATORY Final Result [facility] [address] [place], [place] , [place] [phone] * FACTOR X (10/18/2024 2:54 PM CDT) [facility] FACTOR X 114 70 - 150 % Normal 10/21/2024 5:09 AM CDT [facility] YATES[facility]CHANTIL LY Comment: Test Performed by [facility], [employer], [address] [place], [place] Lino Rashid M.D., Ph.D., Director of Laboratories , CLIA [id number] 10/18/2024 2:54 PM CDT Candis Moreno MD LABORATORY Final Result Performing Organization Address City/[facility]/ZIP Co de Phone Number [facility] , [place] [phone] * ANTITHROMBIN III ACTIVITY (10/18/2024 2:54 PM CDT) Pathologist [facility] ANTITHROMBIN III ACTIVITY 89 80 - 135 % normal 10/20/2024 9:06 PM CDT Grid20/20 [facility] JUSTINO Comment: Test Performed by [facility], [facility], [address] [place] [address] Lino Rashid M.D., Ph.D., Director of Laboratories , CLIA [id number] 10/18/2024 2:54 PM CDT Candis Moreno MD LABORATORY Final Result Performing Organization Address [facility]/ZIP Co de Phone Number Grid20/[address] , [place] [phone] * ANTINUCLEAR ANTIBODY WI RFX (JAYA) (10/18/2024 2:00 PM CDT) JAYA 0.3 10/19/2024 11:50 AM CDT [facility] Comment: NEGATIVE: <0.7 RATIO JAYA PROFILE AND TITER NOT PERFORMED THE JAYA SCREEN TESTS FOR THE FOLLOWING ANTIBODIES BY EIA: SSA1 (RO), SSB1 (LA), PETERS, SCL70, JO1, CENTROMERE, WOOD PATTERNMAKER APPRENTICE HISTONE MUST BE ORDERED SEPARATELY DNA (DS) ANTIBODY 1.7 IU/ML 025 11:50 AM CDT [facility] Comment: NEGATIVE: <10 IU/mL EQUIVOCAL: 10 to 15 IU/mL POSITIVE: >15 IU/mL THIS QUANTITATIVE ASSAY IS CALIBRATED TO THE [employer]'S WO/80 STANDARD. THE LEVEL OF dsDNA AUTOANTIBODY GERERALLY CORRELATES WITH THE LEVEL OF DISEASE ACTIVITY IN SYSTEMIC LUPUS ERYTHMATOSUS 10/18/2024 2:00 PM CDT Jamari Arthur MD LABORATORY Final Result [facility] [address] [place] [address], [id number] * (ABNORMAL) CYCLIC CITRULLINATED PEPTIDE (CCP)ANTIBODY(IGG) (10/18/2024 2:00 PM CDT) CITRULLINE PEPTIDE ANTIBODY 26(H) <20 Units 10/23/2024 11:12 AM CDT Grid20/20 JOSETTE BADILLO Comment: Negative: <20 Weak Positive: 20 - 39 Moderate Positive: 40 - 59 Strong Positive: >59 Test Performed by [facility], [facility], [address] [place] [address] Lino Rashid M.D., Ph.D., Director of Laboratories , [facility] [id number] 10/18/2024 2:00 PM CDT us Jamari Arthur MD LABORATORY Final Result Performing Organization Address [facility]/RUST Co de Phone Number [facility] [address] [place] [address], * BLOOD SMEAR PERIPHERAL INTERP PHYS W/WRIT REPORT (10/18/2024 2:00 PM CDT) SMEAR TO PATHOLOGIST SEE PATHOLOGY REPORT. 10/21/2024 7:[address] [facility] 10/18/2024 2:00 PM CDT us Candis Moreno MD LABORATORY Final Result [facility] [address] [place] [address], [place] [phone] * (ABNORMAL) PHOSPHORUS, INORGANIC PHOSPHATE (10/18/2024 2:00 PM CDT) Only the most recent of3 resultswithin the time period is included. PHOSPHORUS 5.8(H) 2.5 - 4.9 MG/DL 10/18/2024 3:[address] [facility] 10/18/2024 2:00 PM CDT us Candis Moreno MD LABORATORY Final Result Performing Organization Address City/[facility] Co de Phone Number [facility] [address] [place] [address], [place] [phone] * (ABNORMAL) FERRITIN (10/18/2024 2:00 PM CDT) Only the most recent of2 resultswithin the time period is included. FERRITIN 2,302.9(H) 8.0 - 388.0 NG/ML 10/18/2024 3:[address] [facility] 10/18/2024 2:00 PM CDT us Candis Moreno MD LABORATORY Final Result [facility] [address] [place] [address], [place] [phone] * Pathology (10/18/2024 12:00 AM CDT) PATHOLOGY [facility] Department of Laboratory Medicine [address] [place] [address] , extension [phone] Pathology Report Peripheral Smear Report Name: NIDHI SMART Specimen #: [id number] Age: 1 1980 (Age: 44) Location: [id number] Sex: F Procedure Date: 10/18/2024 Hospital #: [id number] Date Received: 10/19/2024 Date Reported: 10/20/2024 Provider: WAGNER PAZ MD PHD ALKA ARTHUR MD Source: Peripheral blood Clinical History: Leukocytosis FINAL DIAGNOSIS: Peripheral blood, smear review: -Leukocytosis with absolute neutrophilia -Normocytic anemia -Mild thrombocytosis Diagnosis Comment: The findings are nonspecific but can be seen secondary to infection or drug/medication effect, among others. Target cells can be seen in liver disease. Overall, there is no overt morphologic evidence of a myeloid neoplasm or lymphoproliferativ e disorder in this sample. Electronically Signed Out APOLINAR GOMEZ MD INTERPRETATION: Peripheral Blood Comments: Review of the peripheral blood smear demonstrates a leukocytosis with absolute neutrophilia, monocytosis, and eosinophilia. Circulating blasts are not identified. Smudge cells are present. There is a normocytic anemia with anisocytosis, hypochromasia, polychromasia, target cells, and 1+ schistocytes. There is a mild thrombocytosis with predominately unremarkable morphology. This case was interpreted and signed out at [facility], [address] [place] [address]. [facility] 10/18/2024 10/19/2024 10: 10 AM CDT Comment:Peripheral blood us Wagner Paz MD,PHD PATHOLOGY/CYTOLOGY ORDERAB LES Final Result [facility] [address] [place] [address], [phone] * (ABNORMAL) HEPATIC FUNCTION PANEL (10/17/2024 3:17 PM CDT) TOTAL PROTEIN S/P/B 6.7 6.4 - 8.2 G/DL 10/17/2024 3:[address] [facility] ALBUMIN S/P/B 1.4(L) 3.4 - 5.0 G/DL 10/17/2024 3:[address] [facility] BILIRUBIN TOTAL S/P/B 0.4 0.2 - 1.2 MG/DL 10/17/2024 3:[address] [facility] Comment: THIS ASSAY IS NOT RECOMMENDED FOR PATIENTS UNDERGOING TREATMENT WITH ELTROMBOPAG DUE TO THE POTENTIAL FOR FALSELY ELEVATED RESULTS. BILIRUBIN DIRECT S/P/B <0.1 0.0 - 0.20 MG/DL 10/17/2024 3:[address] [facility] BILIRUBIN INDIRECT S/P/B NOT CALCULATED 0.0 - 0.9 MG/DL 10/17/2024 3:[address] [facility] ALKALINE PHOSPHATASE S/P/B 203(H) 50 - 136 U/L 10/17/2024 3:[address] [facility] AST 12(L) 15 - 37 U/L 10/17/2024 3:[address] [facility] ALT 22 14 - 55 U/L 10/17/2024 3:[address] [facility] A/G RATIO 0.3(L) 1.0 - 2.0 RATIO 10/17/2024 3:[address] [facility] 10/17/2024 3:17 PM CDT Jamari Arthur MD LABORATORY Final Result [facility] [address] [place] [address], [place] [phone] * (ABNORMAL) AMMONIA (10/17/2024 3:17 PM CDT) AMMONIA 34(H) 11 - 32 UMOL/L 10/17/2024 4:[address] [facility] 10/17/2024 3:17 PM CDT Jamari Arthur MD LABORATORY Final Result [facility] [address] [place] [address], [place] [phone] * XR HAND LT 3V (10/17/2024 12:23 PM CDT) Anatomical Region Laterality Modality Hand Radiographic Cindy ging 10/17/2024 5:26 PM CDT Impressions 10/17/2024 5:31 PM CDT IMPRESSION: 1. Extensive atherosclerotic disease. 2. Soft tissue edema most prominent at the proximal interphalangeal joints of the second through fifth digits. Ordered By: KATHI PIMENTEL Interpreted By: Trav Arshad, 10/17/2024 5:26 PM Narrative 10/17/2024 5:31 PM CDT [facility] [address] [place], [place] [address] IMAGING STUDIES: XR HAND LT 3V DATE: 10/17/2024 12:07 PM HISTORY: pain 44-year-old female. Current inpatient. Diffuse left hand pain. COMPARISON: Right hand 10/11/2024. No prior left hand studies at this institution. DISCUSSION: Portable AP, oblique, and lateral views of the left hand. Extensive atherosclerotic calcifications of the radial artery and ulnar artery with mild to moderate atherosclerotic disease in the hand and digital arteries. Soft tissue swelling most notable at the proximal interphalangeal joints of the second through fifth digits. Mild degenerative changes at the proximal and distal interphalangeal joints of the second through fifth digits. Mild degenerative changes at the radiocarpal joints, intercarpal joints, and thumb carpal-metacarpal joint. Procedure Note Trav Arshad MD - 10/17/2024 [facility] [address] [place], [place] [address] IMAGING STUDIES: XR HAND LT 3VDATE: 10/17/2024 12:07 PM HISTORY: pain 44-year-old female. Current inpatient. Diffuse lefthand pain. COMPARISON: Right hand 10/11/2024. No prior left hand studies at [facility]. DISCUSSION: Portable AP, oblique, and lateral views of the left hand. Extensive atherosclerotic calcifications of the radial artery and ulnarartery with mild to moderate atherosclerotic disease in the hand anddigital arteries. Soft tissue swelling most notable at the proximal interphalangeal jointsof the second through fifth digits. Mild degenerative changes at theproximal and distal interphalangeal joints of the second through fifthdigits. Mild degenerative changes at the radiocarpal joints, intercarpaljoints, and thumb carpal-metacarpal joint. IMPRESSION: 1. Extensive atherosclerotic disease. 2. Soft tissue edema most prominent at the proximal interphalangeal jointsof the second through fifth digits. Ordered By: KATHI PIMENTEL Interpreted By: Trav Arshad, 10/17/2024 5:26 PM us Kathi Pimentel MD GENERAL IMAGING Final Res ult * USV ZARA DUPLEX UP EXT LT (10/17/2024 8:59 AM CDT) Anatomical Region Laterality Modality Extremity Vascular Ultraso und 10/17/2024 8:30 AM CDT Narrative 10/18/2024 8:33 PM CDT VENOUS DUPLEX IMAGING LEFT UPPER EXTREMITY VASCULAR LAB Pat.Name: NIDHI SMART Pat.ID: [id number] .Date: 10/17/2024 Refer.MD: Sulema Lennon Exam Time: 8:30:00 AM Study Type:EMMANUEL VS Venous Duplex Arm Lt Height: 63 in Age: 1 1980,44Y Sex: F Sonogrphr: Lon Soto RDMS, RVT History / Clinical:hx of rue dvt, lue swelling Procedures: Castro scale, Color Doppler imaging, Doppler Spectral Analysis Race: B ++++++++++++++++++++++++++++++++++++ SUMMARY: ++++++++++++++++++++++++++++++++++++ Left upper extremity exam: There are NO apparent, deep or superficial vein, ACUTE character venous filling defects visualized in the internal jugular, innominate, subclavian, axillary, brachial, basilic, cephalic, radial, ulnar veins. Resting venous flow is normal pulsatile/phasic in the central veins. 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 The right subclavian vein is patent, compressible and with out thrombus. Resting venous flow is normal pulsatile/phasic in the central veins. CONCLUSION: No evidence of acute deep or superficial vein thrombosis in the left upper extremity. 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 <Electronic Signature> 10/18/2024 08:33 PM Raulito Valdez M.D. Procedure Note Raulito Valdez MD - 10/18/2024 VENOUS DUPLEX IMAGING LEFT UPPER EXTREMITY VASCULAR LAB Pat.Name: NIDHI SMART Pat.ID: [id number] .Date: 10/17/2024 Refer.MD: Sulema Lennon Exam Time: 8:30:00 AM Study Type:EMMANUEL VS Venous Duplex Arm Lt Height: 63 in Age: 1 1980,44Y Sex: F Sonogrphr: Lon Soto RDMS, RVT History / Clinical:hx of rue dvt, lue swelling Procedures: Castro scale, Color Doppler imaging, Doppler Spectral Analysis Race: B ++++++++++++++++++++++++++++++++++++ SUMMARY: ++++++++++++++++++++++++++++++++++++ Left upper extremity exam: There are NO apparent, deep or superficial vein, ACUTE character venous filling defects visualized in the internal jugular, innominate, subclavian, axillary, brachial, basilic, cephalic, radial, ulnar veins. Resting venous flow is normal pulsatile/phasic in the central veins. 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 The right subclavian vein is patent, compressible and with out thrombus. Resting venous flow is normal pulsatile/phasic in the central veins. CONCLUSION: No evidence of acute deep or superficial vein thrombosis in the left upper extremity. 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 <Electronic Signature> 10/18/2024 08:33 PM Raulito Valdez M.D. [facility] [place] Elvin Arthur MD [facility] Final Result * USE ECHOCARDIOGRAM (10/16/2024 5:02 PM CDT) Anatomical Region Laterality Modality Cardiac Echocardiogram 10/16/2024 4:07 PM CDT Narrative 10/16/2024 5:49 PM CDT Echocardiography Report Pat.Name: NIDHI SMART Sonali.ID: [id number] .Date: 10/16/2024 Exam Time: 4:07:00 PM Study Type:ECHO WITH CARDIAC DOPPLER COMP Height: 63 in Weight: 222 lb BSA: 2.02 m2 Age: 1 1980,44Y Sex: F BP: 149/63 Sonogrphr: SS RDCS Pat. Stat.:Inpatient Room: [facility] Reason for Study:Gram + bacteremia, r/o veg History / Clinical:Smoker = Checked Procedures: 2D, M-mode, Doppler, Color Flow Race: B ++++++++++++++++++++++++++++++++++++ SUMMARY: ++++++++++++++++++++++++++++++++++++ The left ventricular size is normal. The left ventricular systolic function is normal. The calculated ejection fraction is 55%. Mild concentric left ventricular hypertrophy. Left ventricular diastolic function is abnormal (grade 2 - pseudonormal pattern). The mean left atrial pressure is elevated. The left ventricular outflow tract size is normal. The right ventricular size is normal. Right ventricular systolic function is normal. Inferior vena cava is normal. Inferior vena cava shows >50% collapse with respiration consistent with normal right atrial pressure. Technically difficult exam due to exam done portable and patient positioning. Mild mitral regurgitation. Moderate tricuspid regurgitation. Right ventricular systolic pressure is 40-50 mmHg suggestive of moderate pulmonary hypertension. ++++++++++++++++++++++++++++++++++++ FINDINGS: ++++++++++++++++++++++++++++++++++++ LV: The left ventricular size is normal. The left ventricular systolic function is normal. The calculated ejection fraction is 55%. Mild concentric left ventricular hypertrophy. Left ventricular diastolic function is abnormal (grade 2 - pseudonormal pattern). The mean left atrial pressure is elevated. LVOT: The left ventricular outflow tract size is normal. RV: The right ventricular size is normal. Right ventricular systolic function is normal. LA: Left atrial size is normal. RA: The right atrial size is normal. CEDRICK: Trivial pericardial effusion, without tamponade physiology. PLE: Pleural effusion is present. AO: Normal aortic root. SVn: Inferior vena cava is normal. Inferior vena cava shows >50% collapse with respiration consistent with normal right atrial pressure. Other: Technically difficult exam due to exam done portable and patient positioning. AV: The aortic valve is trileaflet. No evidence of aortic valve stenosis. No evidence of aortic valve regurgitation. MV: Mild mitral regurgitation. No evidence of mitral stenosis. PV: No evidence of pulmonic valve stenosis. No evidence of pulmonic regurgitation. TV: Moderate tricuspid regurgitation. Right ventricular systolic pressure is 44 mmHg. Right ventricular systolic pressure is 40-50 mmHg suggestive of moderate pulmonary hypertension. No evidence of tricuspid valve stenosis. ++++++++++++++++++++++++++++++++++++ MEASUREMENTS: ++++++++++++++++++++++++++++++++++++ 2D Left Ventricle LVIDd 4.89 cm (3.6-5.2) LV ESV 53.3 ml LVIDs 3.47 cm (2.3-3.9) LV ESV 43.2 ml LngAxd 8.71 cm LVESV BP 50.8 ml LngAxd 7.62 cm LV EF 53.7 % LV EDV 115 ml LV EF 54.8 % LV EDV 95.5 ml LV EF BP 54.6 % LVEDV BP 112 ml LV SV 61.8 ml LngAxs 7.44 cm LV SV 52.4 ml LngAxs 6.5 cm LV SV BP 61.2 ml LVPW LVPWd 1.34 cm Right Ventricle RVIDd 2.76 cm (2.6-4.3) Right Ventricle 32.1 mm Right Ventricle 38.5 mm Right and Left 0.564 Major Killdeer 86.1 mm Ventricular Septum IVSd 1.36 cm Left Atrium LA a-p 4.1 cm (2.8-3.4)* LA VOLBP 41.4 ml Aorta Ao Rtd 2.5 cm LVOT LVOT 1.8 cm LVOTArea 2.54 cm2 Ratios IVS LA Biplane LAVol I BP 20.5 ml/m2 RA Single Plane Ellipse RA sys Area 10 cm2 Right Atrium Sy 49.2 mm MMODE Aortic Valve AV sep 1.5 cm (1.5-2.6) DOPPLER LVOT LVOTpkPG 9 mmHg LVOT TVI 29 cm LVOTpkVel 153 cm/s (70-110)+* LVOTmnPG 5 mmHg AV Forward Flow AV TVI 30.1 cm AV mnPG 7 mmHg AV pkVel 171 cm/s (100-170)+* AV pkPG 12 mmHg MV Forward Flow MV DeTm 169 msec MV E/A 1.6 MV mnPG 2 mmHg MV pkE 139 cm/s (60-130)* MV pkPG 7 mmHg MV pkA 88.8 cm/s PV Forward Flow PV TVI 31.2 cm PV mnVel 95.5 cm/s PV pkVel 131 cm/s (60-90)+* PV mnPG 4 mmHg PV pkPG 7 mmHg PV AC 61 msec TV Regurg Flow TV pkPG 41 mmHg TV pkVel 321 cm/s (30-70)* TV Forward Flow TV pkE 57.2 cm/s Lat E' Lat e 10.8 cm/s Lat E/E' Lat E/e 12.9 Med E' Med e 6.08 cm/s Med E/E' Med E/e 22.9 Aortic Valve Aortic Valve Ve 0.89 Lat MA LV Peak Ann Ti 6.57 cm/s Left Ventricle 1.6 LV Pk Sys Tissu 9.08 cm/s Left Ventricle LV IVRT 95 msec Med MA LV Peak Ann Ti 5.11 cm/s Left Ventricle 1.2 LV Pk Sys Tissu 7.62 cm/s PV Antegrade Flow Acceleration Sl 1013 cm/s2 <Electronic Signature> 10/16/2024 05:49 PM Bubba Suazo M.D. Procedure Note Bubba Suazo MD - 10/16/2024 Echocardiography Report Pat.Name: NIDHI SMART Pat.ID: [id number] .Date: 10/16/2024 Exam Time: 4:07:00 PM Study Type:ECHO WITH CARDIAC DOPPLER COMP Height: 63 in Weight: 222 lb BSA: 2.02 m2 Age: 1 1980,44Y Sex: F BP: 149/63 Sonogrphr: SS RD Pat. Stat.:Inpatient Room: [facility] Reason for Study:Gram + bacteremia, r/o veg History / Clinical:Smoker = Checked Procedures: 2D, M-mode, Doppler, Color Flow Race: B ++++++++++++++++++++++++++++++++++++ SUMMARY: ++++++++++++++++++++++++++++++++++++ The left ventricular size is normal. The left ventricular systolic function is normal. The calculated ejection fraction is 55%. Mild concentric left ventricular hypertrophy. Left ventricular diastolic function is abnormal (grade 2 - pseudonormal pattern). The mean left atrial pressure is elevated. The left ventricular outflow tract size is normal. The right ventricular size is normal. Right ventricular systolic function is normal. Inferior vena cava is normal. Inferior vena cava shows >50% collapse with respiration consistent with normal right atrial pressure. Technically difficult exam due to exam done portable and patient positioning. Mild mitral regurgitation. Moderate tricuspid regurgitation. Right ventricular systolic pressure is 40-50 mmHg suggestive of moderate pulmonary hypertension. ++++++++++++++++++++++++++++++++++++ FINDINGS: ++++++++++++++++++++++++++++++++++++ LV: The left ventricular size is normal. The left ventricular systolic function is normal. The calculated ejection fraction is 55%. Mild concentric left ventricular hypertrophy. Left ventricular diastolic function is abnormal (grade 2 - pseudonormal pattern). The mean left atrial pressure is elevated. LVOT: The left ventricular outflow tract size is normal. RV: The right ventricular size is normal. Right ventricular systolic function is normal. LA: Left atrial size is normal. RA: The right atrial size is normal. CEDRICK: Trivial pericardial effusion, without tamponade physiology. PLE: Pleural effusion is present. AO: Normal aortic root. SVn: Inferior vena cava is normal. Inferior vena cava shows >50% collapse with respiration consistent with normal right atrial pressure. Other: Technically difficult exam due to exam done portable and patient positioning. AV: The aortic valve is trileaflet. No evidence of aortic valve stenosis. No evidence of aortic valve regurgitation. MV: Mild mitral regurgitation. No evidence of mitral stenosis. PV: No evidence of pulmonic valve stenosis. No evidence of pulmonic regurgitation. TV: Moderate tricuspid regurgitation. Right ventricular systolic pressure is 44 mmHg. Right ventricular systolic pressure is 40-50 mmHg suggestive of moderate pulmonary hypertension. No evidence of tricuspid valve stenosis. ++++++++++++++++++++++++++++++++++++ MEASUREMENTS: ++++++++++++++++++++++++++++++++++++ 2D Left Ventricle LVIDd 4.89 cm (3.6-5.2) LV ESV 53.3 ml LVIDs 3.47 cm (2.3-3.9) LV ESV 43.2 ml LngAxd 8.71 cm LVESV BP 50.8 ml LngAxd 7.62 cm LV EF 53.7 % LV EDV 115 ml LV EF 54.8 % LV EDV 95.5 ml LV EF BP 54.6 % LVEDV BP 112 ml LV SV 61.8 ml LngAxs 7.44 cm LV SV 52.4 ml LngAxs 6.5 cm LV SV BP 61.2 ml LVPW LVPWd 1.34 cm Right Ventricle RVIDd 2.76 cm (2.6-4.3) Right Ventricle 32.1 mm Right Ventricle 38.5 mm Right and Left 0.564 Major Killdeer 86.1 mm Ventricular Septum IVSd 1.36 cm Left Atrium LA a-p 4.1 cm (2.8-3.4)* LA VOLBP 41.4 ml Aorta Ao Rtd 2.5 cm LVOT LVOT 1.8 cm LVOTArea 2.54 cm2 Ratios IVS LA Biplane LAVol I BP 20.5 ml/m2 RA Single Plane Ellipse RA sys Area 10 cm2 Right Atrium Sy 49.2 mm MMODE Aortic Valve AV sep 1.5 cm (1.5-2.6) DOPPLER LVOT LVOTpkPG 9 mmHg LVOT TVI 29 cm LVOTpkVel 153 cm/s (70-110)+* LVOTmnPG 5 mmHg AV Forward Flow AV TVI 30.1 cm AV mnPG 7 mmHg AV pkVel 171 cm/s (100-170)+* AV pkPG 12 mmHg MV Forward Flow MV DeTm 169 msec MV E/A 1.6 MV mnPG 2 mmHg MV pkE 139 cm/s (60-130)* MV pkPG 7 mmHg MV pkA 88.8 cm/s PV Forward Flow PV TVI 31.2 cm PV mnVel 95.5 cm/s PV pkVel 131 cm/s (60-90)+* PV mnPG 4 mmHg PV pkPG 7 mmHg PV AC 61 msec TV Regurg Flow TV pkPG 41 mmHg TV pkVel 321 cm/s (30-70)* TV Forward Flow TV pkE 57.2 cm/s Lat E' Lat e 10.8 cm/s Lat E/E' Lat E/e 12.9 Med E' Med e 6.08 cm/s Med E/E' Med E/e 22.9 Aortic Valve Aortic Valve Ve 0.89 Lat MA LV Peak Ann Ti 6.57 cm/s Left Ventricle 1.6 LV Pk Sys Tissu 9.08 cm/s Left Ventricle LV IVRT 95 msec Med MA LV Peak Ann Ti 5.11 cm/s Left Ventricle 1.2 LV Pk Sys Tissu 7.62 cm/s PV Antegrade Flow Acceleration Sl 1013 cm/s2 <Electronic Signature> 10/16/2024 05:49 PM Bubba Suazo M.D. Chase Aponte DO ECHO Final Result * (ABNORMAL) HEMOGLOBIN AND HEMATOCRIT (10/15/2024 12:20 PM CDT) Pathologist [facility] HGB 7.1(L) 12.0 - 16.0 G/DL 10/15/2024 12:[address] [facility] HCT 23.1(L) 38.0 - 48.0 % 10/15/2024 12:[address] [facility] 10/15/2024 12:2 0 PM CDT Jamari Arthur MD LABORATORY Final Result [facility] [address] [place] [address], [place] [phone] * HEPATITIS B POST-VACCINE ANTIBODY (10/14/2024 5:10 AM CDT) Pathologist [facility] HEP B SURFACE AB 83.57 mIU/mL 10/14/2024 6:[address] [facility] Comment: REFERENCE RANGE >=12.00 PATIENT DOES HAVE IMMUNITY TO HEPATITIS B VIRUS 10/14/2024 5:10 AM CDT Kathi Pimentel MD LABORATORY Final Res ult [facility] [address] [place] [address], [place] [phone] * (ABNORMAL) IRON SAT PANEL (IRON,IBC,%SAT) (10/14/2024 5:10 AM CDT) IRON 37(L) 50.0 - 170.0 MCG/DL 10/14/2024 6:[address] [facility] IRON BINDING CAPACITY 129(L) 250 - 450 MCG/DL 10/14/2024 6:[address] [facility] IRON SATURATION 29 20 - 55 % 6:[address] [facility] 10/14/2024 5:10 AM CDT Candis Moreno MD LABORATORY Final Result Performing Organization Address City/[facility]/ZIP Co de Phone Number [facility] [address] [place] [address], [place] [phone] * (ABNORMAL) VITAMIN B-12 (10/14/2024 5:10 AM CDT) VITAMIN B12 S/P/B 1,874(H) 254 - 1,320 PG/ML 10/14/2024 7:[address] [facility] 10/14/2024 5:10 AM CDT us Candis Moreno MD LABORATORY Final Result [facility] [address] [place] [address], [place] [phone] * (ABNORMAL) TRANSFERRIN (10/14/2024 5:10 AM CDT) TRANSFERRIN 95(L) 200 - 360 mg/dL 10/14/2024 6:[address] [facility] 10/14/2024 5:10 AM CDT Candis Moreno MD LABORATORY Final Result [facility] [address] [place] [address], [place] [phone] * HEPATITIS B SURFACE AG, EIA (10/14/2024 5:10 AM CDT) HEPATITIS B SURFACE AG NON-REACTI VE NON-REACTI VE 10/14/2024 6:[address] [facility] 10/14/2024 5:10 AM CDT Kathi Pimentel MD LABORATORY Final Res ult [facility] [address] [place] [address], [place] [phone] * FOLIC ACID SERUM (10/14/2024 5:10 AM CDT) FOLATE 3.2 3.1 - 17.5 NG/ML 10/14/2024 7:[address] [facility] 10/14/2024 5:10 AM CDT us Candis Moreno MD LABORATORY Final Result [facility] [address] [place] [address], * MAGNESIUM (10/13/2024 5:39 PM CDT) [facility] MAGNESIUM 1.9 1.8 - 2.4 MG/DL 10/13/2024 6:[address] [facility] 10/13/2024 5:39 PM CDT Anuja Newman MD LABORATORY Final Result [facility] [address] [place] [address], * (ABNORMAL) CULTURE, BLOOD, PCR PANEL (10/13/2024 3:42 PM CDT) [facility] METHICILLIN RESISTANT GENE PCR (BLD) DETECTED(A) NOT DETECTED 10/14/2024 9:[address] [facility] Comment: Note: Antimicrobial resistance can occur via multiple mechanisms. A NOT DETECTED result from the Combined [employer] antimicrobial resistance gene assay does not indicate antimicrobial susceptibility. A DETECTED result for a genetic marker of antimicrobial resistance gene assay does not indicate antimicrobial susceptibility. Subculturing is required for species identification and susceptibility testing of isolates. ENTEROCOCCUS FAECALIS PCR (BLD) NOT DETECTED NOT DETECTED 10/14/2024 9:[address] [facility] ENTEROCUCCUS FAECIUM PCR (BLD) NOT DETECTED NOT DETECTED 10/14/2024 9:[address] [facility] LISTERIA MONOCYTOGENES PCR (BLD) NOT DETECTED NOT DETECTED 10/14/2024 9:[address] [facility] STAPH SPECIES PCR (BLD) DETECTED(A) NOT DETECTED 10/14/2024 9:[address] [facility] Comment: CALLED BLOOD CULTURE PCR RESULT TO AND REPEATED BACK BY LIU CALVIN IN PHARMACY AT [phone] DY STAPH AUREUS PCR (BLD) NOT DETECTED NOT DETECTED 10/14/2024 9:[address] [facility] STAPHYLOCOCCUS EPIDERMIDIS PCR (BLD) DETECTED(A) NOT DETECTED 10/14/2024 9:[address] [facility] STAPHYLOCOCCUS LUGDUNENSIS PCR (BLD) NOT DETECTED NOT DETECTED 10/14/2024 9:[address] [facility] STREPTOCOCCUS PCR (BLD) NOT DETECTED NOT DETECTED 10/14/2024 9:[address] [facility] STREP AGALACTIAE PCR (BLD) NOT DETECTED NOT DETECTED 10/14/2024 9:[address] [facility] STREP PNEUMONIAE PCR (BLD) NOT DETECTED NOT DETECTED 10/14/2024 9:[address] [facility] STREP PYOGENES (GRP A) PCR (BLD) NOT DETECTED NOT DETECTED 10/14/2024 9:[address] [facility] ACINETOBACTER BAUMANII PCR (BLD) NOT DETECTED NOT DETECTED 10/14/2024 9:[address] [facility] BACTEROIDES FRAGILIS PCR (BLD) NOT DETECTED NOT DETECTED 10/14/2024 9:[address] [facility] ENTEROBACTERIACEAE PCR (BLD) NOT DETECTED NOT DETECTED 10/14/2024 9:[address] [facility] ENTEROBACTER CLOACAE COMP PCR (BLD) NOT DETECTED NOT DETECTED 10/14/2024 9:[address] [facility] ESCHERICHIA COLI PCR (BLD) NOT DETECTED NOT DETECTED 10/14/2024 9:[address] [facility] KLEBSIELLA AEROGENES PCR (BLD) NOT DETECTED NOT DETECTED 10/14/2024 9:[address] [facility] KLEBSIELLA OXYTOCA PCR (BLD) NOT DETECTED NOT DETECTED 10/14/2024 9:[address] [facility] KLEBSIELLA PNEUMONIAE PCR (BLD) NOT DETECTED NOT DETECTED 10/14/2024 9:[address] [facility] PROTEUS PCR (BLD) NOT DETECTED NOT DETECTED 10/14/2024 9:[address] [facility] SALMONELLA PCR (BLD) NOT DETECTED NOT DETECTED 10/14/2024 9:[address] [facility] SERRATIA MARCESCENS PCR (BLD) NOT DETECTED NOT DETECTED 10/14/2024 9:[address] [facility] H. INFLUENZAE PCR (BLD) NOT DETECTED NOT DETECTED 10/14/2024 9:[address] [facility] N. MENINGITIDIS PCR (BLD) NOT DETECTED NOT DETECTED 10/14/2024 9:[address] [facility] PSEUDOMONAS AERUGINOSA PCR (BLD) NOT DETECTED NOT DETECTED 10/14/2024 9:[address] [facility] STENOTROPHOMONAS MALTOPHILIA PCR (BLD) NOT DETECTED NOT DETECTED 10/14/2024 9:[address] [facility] L[place] ALBICANS PCR (BLD) NOT DETECTED NOT DETECTED 10/14/2024 9:[address] [facility] [place] AURIS PCR (BLD) NOT DETECTED NOT DETECTED 10/14/2024 9:[address] [facility] [place] GLABRATA PCR (BLD) NOT DETECTED NOT DETECTED 10/14/2024 9:[address] [facility] [place] KRUSEI PCR (BLD) NOT DETECTED NOT DETECTED 10/14/2024 9:[address] [facility] [place] PARAPSILOSIS PCR (BLD) NOT DETECTED NOT DETECTED 10/14/2024 9:[address] [facility] [place] TROPICALIS PCR (BLD) NOT DETECTED NOT DETECTED 10/14/2024 9:[address] [facility] CRYPTOCOCCUS NEOFORMANS/GATTII PCR (BLD) NOT DETECTED NOT DETECTED 10/14/2024 9:[address] [facility] 10/13/2024 3:42 PM CDT Jamari Arthur MD MICROBIOLOGY - GENERAL ORDERA BLES Final Result Performing Organization Address [facility] Co de Phone Number [facility] [address] [place] [address], * MRSA SCREENING (10/13/2024 2:20 PM CDT) SPEC DESCRIPTION NASAL 10/13/2024 2:[address] [facility] SPECIAL REQUESTS NO SPECIAL REQUEST 10/13/2024 2:[address] [facility] CULTURE RESULT NO METHICILLIN RESISTANT STAPHYLOCOCCUS AUREUS ISOLATED 10/14/2024 12:[address] [facility] SPECIMEN FROM INTERNAL NOSE / Unknown 10/13/2024 2:20 PM CDT 10/13/2024 4:35 PM CDT Candis Moreno MD MICROBIOLOGY - GENERAL ORDERABLE S Final Result Performing Organization Address [facility] Co de Phone Number [facility] [address] [place] [address], * CTA CHEST (10/13/2024 8:08 AM CDT) Anatomical Region Laterality Modality Chest Computed Tomogra phy 10/13/2024 8:16 AM CDT Impressions 10/13/2024 8:42 AM CDT IMPRESSION: 1. Bilateral pleural effusions are greater on the left than right. Bilateral lower lobe atelectasis/consolidation is greater on the left than right. Subsegmental atelectasis involving all lobes. 2. Limited evaluation of the pulmonary arteries as discussed above. No apparent pulmonary embolus in the main pulmonary arteries or lobar arteries. 3. No aortic aneurysm or dissection. 4. Cardiomegaly. Small volume of pericardial fluid. 5. Borderline lymphadenopathy and bilateral axilla and in the mediastinum AP window. Ordered By: CANDIS MORENO Interpreted By: Trav Arshad, 10/13/2024 8:16 AM Narrative 10/13/2024 8:42 AM CDT [address] [address] IMAGING STUDIES: CTA CHEST DATE: 10/13/2024 7:56 AM HISTORY: pilmonary embolism 44-year-old female. Current inpatient. History includes type 2 diabetes, stage V chronic kidney disease, hypertension, and hyperlipidemia. Patient reportedly on nightly peritoneal dialysis. COMPARISON: No pertinent comparison exam at this institution. Report from single view chest 09/13/2024 at [facility]. DISCUSSION: CTA chest following intravenous administration 80 ml Isovue 370 contrast. Axial, coronal, and sagittal reconstructions. Coronal MIP reconstruction. 3-dimensional reconstructions performed at an independent workstation with physician supervision. Automated exposure control with radiation dose reduction techniques used. Cardiovascular: Cardiomegaly. Small volume of pericardial fluid. Coronary atherosclerotic calcification. No aortic aneurysm or dissection. Anatomic variant of left common carotid artery origin from the base of the brachiocephalic artery. Mild calcific plaque in the distal aortic arch. Extensive calcified plaque in the splenic artery. Normal-size main pulmonary arteries. Suboptimal evaluation of the pulmonary arteries for pulmonary embolus due to nearly equal opacification of the pulmonary arteries to the pulmonary veins and aorta. Pulmonary artery evaluation is further limited due to breathing motion artifacts and lung atelectasis/consolidation. No apparent pulmonary emboli to level of lobar arteries. Lymphatic: Borderline 10 mm diameter lymph nodes in bilateral axilla. Borderline 10 mm diameter aortopulmonary window lymph nodes. 8 mm right precarinal lymph nodes. Breasts: No appreciable acute abnormality. Pulmonary and Pleura: Moderate left pleural effusion with fluid depth 7.7 cm in the lower chest. Consolidation in the left lower lobe with aerated lung anteriorly. Subsegmental atelectasis in the left upper lobe and in the lingula. Small right pleural effusion with fluid depth of 3.8 cm in the lower chest. Pleural fluid insinuating into the right major fissure. Compressive atelectasis in the right lower lobe adjacent to the pleural effusion with additional subsegmental atelectasis in the right lower lobe. Subsegmental atelectasis in the right upper lobe and right middle lobe. Musculoskeletal: Mild generalized soft tissue edema. Degenerative changes of the spine and shoulders. Upper Abdomen: Splenic length of 11.9 cm is towards upper limits normal. No appreciable acute abnormality in the visualized upper abdomen. Procedure Note Trav Arshad MD - 10/13/[address] [address] IMAGING STUDIES: CTA CHESTDATE: 10/13/2024 7:56 AM HISTORY: pilmonary embolism 44-year-old female. Current inpatient.History includes type 2 diabetes, stage V chronic kidney disease,hypertension, and hyperlipidemia. Patient reportedly on nightly peritonealdialysis. COMPARISON: No pertinent comparison exam at this institution. Report fromsingle view chest 09/13/2024 at [facility]. DISCUSSION: CTA chest following intravenous administration 80 ml Isovue 370 contrast.Axial, coronal, and sagittal reconstructions. Coronal MIP reconstruction.3-dimensional reconstructions performed at an independent workstation withphysician supervision. Automated exposure control with radiation dosereduction techniques used. Cardiovascular: Cardiomegaly. Small volume of pericardial fluid. Coronaryatherosclerotic calcification. No aortic aneurysm or dissection. Anatomic variant of left common carotidartery origin from the base of the brachiocephalic artery. Mild calcificplaque in the distal aortic arch. Extensive calcified plaque in thesplenic artery. Normal-size main pulmonary arteries. Suboptimal evaluation of thepulmonary arteries for pulmonary embolus due to nearly equal opacificationof the pulmonary arteries to the pulmonary veins and aorta. Pulmonaryartery evaluation is further limited due to breathing motion artifacts andlung atelectasis/consolidation. No apparent pulmonary emboli to level oflobar arteries. Lymphatic: Borderline 10 mm diameter lymph nodes in bilateral axilla.Borderline 10 mm diameter aortopulmonary window lymph nodes. 8 mm rightprecarinal lymph nodes. Breasts: No appreciable acute abnormality. Pulmonary and Pleura: Moderate left pleural effusion with fluid depth 7.7cm in the lower chest. Consolidation in the left lower lobe with aeratedlung anteriorly. Subsegmental atelectasis in the left upper lobe and inthe lingula. Small right pleural effusion with fluid depth of 3.8 cm in the lowerchest. Pleural fluid insinuating into the right major fissure. Compressiveatelectasis in the right lower lobe adjacent to the pleural effusion withadditional subsegmental atelectasis in the right lower lobe. Subsegmentalatelectasis in the right upper lobe and right middle lobe. Musculoskeletal: Mild generalized soft tissue edema. Degenerative changesof the spine and shoulders. Upper Abdomen: Splenic length of 11.9 cm is towards upper limits normal.No appreciable acute abnormality in the visualized upper abdomen. IMPRESSION: 1. Bilateral pleural effusions are greater on the left than right.Bilateral lower lobe atelectasis/consolidation is greater on the left thanright. Subsegmental atelectasis involving all lobes. 2. Limited evaluation of the pulmonary arteries as discussed above. Noapparent pulmonary embolus in the main pulmonary arteries or lobararteries. 3. No aortic aneurysm or dissection. 4. Cardiomegaly. Small volume of pericardial fluid. 5. Borderline lymphadenopathy and bilateral axilla and in the mediastinumAP window. Ordered By: CANDIS MORENO Interpreted By: Trav Arshad, 10/13/2024 8:16 AM us Candis Moreno MD CT Final Result * HEPARIN, ANTI XA, UFH (10/12/2024 8:46 AM CDT) Only the most recent of4 resultswithin the time period is included. HEPARIN ANTI XA UFH 0.38 0.30 - 0.70 IU/ML 10/12/2024 9:26 AM CDT [facility] Comment: UFH Therapeutic Anti Xa Ranges: Medical Therapeutic Range: 0.30 - 0.70 IU/mL Cardiac Therapeutic Range: 0.30 - 0.50 IU/mL Neuro Therapeutic Range: 0.20 - 0.40 IU/mL 10/12/2024 8:46 AM CDT Alka Contreras MD LABORATORY Final Resu lt [facility] [address] [place] [address], [place] [phone] * CT HEAD WO CON (10/11/2024 3:25 PM CDT) Anatomical Region Laterality Modality Head Computed Tomogra phy 10/11/2024 4:01 PM CDT Impressions 10/11/2024 4:11 PM CDT IMPRESSION: 1. No acute intracranial hemorrhage. 2. 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 3. Size of encephalomalacia may be exaggerated by transependymal flow as this is immediately beneath possibly contiguous with the occipital horn left lateral ventricle 4. There is widespread calcific atherosclerosis of the anterior and posterior circulation, out of proportion for age. 5. No linear or depressed calvarial fracture. . Referred By: Interpreted By: Anna Angulo DO, 10/11/2024 4:01 PM Narrative 10/11/2024 4:11 PM CDT [facility] [address] [place], [place] [address] EXAMINATION: NONENHANCED CT SCAN OF THE BRAIN CLINICAL INDICTION: 44-year-old female. Reason for examination: Unwitnessed fall on heparin drip. .10/11/2024 3:21 PM, Kelsie Kern L: UNWITNESSED FALL ON HEPARIN DRIP TECHNIQUE: Routine non- enhanced CT of the brain with soft tissue and bone window settings. .Dose lowering technique was used for this study which may include, but is not limited to, dose reduction techniques, automated exposure control, use of iterative reconstruction and ALARA (As low As Reasonably Achievable)/Image Gently techniques. COMPARISON: No previous FINDINGS: There is no acute intracranial process. There is no evidence of intracranial hemorrhage. No extra-axial fluid collection is seen. There is no midline shift, mass effect, mass lesion or evidence for cerebral edema. There is a moderate-sized area of ill-defined hypodensity in the left paramedian occipital lobe immediately beneath possibly contiguous with the occipital horn left lateral ventricle. Has the appearance of area of encephalomalacia from old infarction possibly exaggerated by transependymal flow. No effacement of subjacent occipital sulci. No effacement or mass effect on the left occipital horn. The ventricular system is normal in size, midline and symmetric without significant effacement, displacement or dilatation. The castro/white matter junctions are elsewhere maintained. The basilar cisterns are not effaced. The sellar region is unremarkable . Calcifications are present in the pineal region and choroid plexus. Extensive calcific atherosclerosis anterior and posterior intracranial arteries unusual for age. Bone window settings fail to reveal linear or depressed calvarial fracture. The visualized paranasal sinuses and mastoid air cells are clear. Procedure Note Anna Angulo MD - 10/11/[address] [address] EXAMINATION: NONENHANCED CT SCAN OF THE BRAIN CLINICAL INDICTION: 44-year-old female. Reason for examination: Unwitnessed fall on heparin drip. .10/11/2024 3:21 PM, Kelsie Kern L: UNWITNESSED FALL ON HEPARIN DRIP TECHNIQUE: Routine non- enhanced CT of the brain with soft tissue and bone windowsettings. .Dose lowering technique was used for this study which may include, but isnot limited to, dose reduction techniques, automated exposure control, useof iterative reconstruction and ALARA (As low As ReasonablyAchievable)/Image Gently techniques. COMPARISON: No previous FINDINGS: There is no acute intracranial process. There is no evidence ofintracranial hemorrhage. No extra-axial fluid collection is seen. Thereis no midline shift, mass effect, mass lesion or evidence for cerebraledema. There is a moderate-sized area of ill-defined hypodensity in theleft paramedian occipital lobe immediately beneath possibly contiguouswith the occipital horn left lateral ventricle. Has the appearance ofarea of encephalomalacia from old infarction possibly exaggerated bytransependymal flow. No effacement of subjacent occipital sulci. Noeffacement or mass effect on the left occipital horn. The ventricular system is normal in size, midline and symmetric withoutsignificant effacement, displacement or dilatation. The castro/white matterjunctions are elsewhere maintained. The basilar cisterns are not effaced.The sellar region is unremarkable . Calcifications are present in thepineal region and choroid plexus. Extensive calcific atherosclerosis anterior and posterior intracranialarteries unusual for age. Bone window settings fail to reveal linear or depressed calvarialfracture. The visualized paranasal sinuses and mastoid air cells are clear. IMPRESSION: 1. No acute intracranial hemorrhage. 2. Ovoid area of hypodensity left paramedian occipital lobe, probablyarea of encephalomalacia from old old ischemic infarction. 3. Size of encephalomalacia may be exaggerated by transependymal flow asthis is immediately beneath possibly contiguous with the occipital hornleft lateral ventricle 4. There is widespread calcific atherosclerosis of the anterior andposterior circulation, out of proportion for age. 5. No linear or depressed calvarial fracture. . Referred By: Interpreted By: Anna Angulo DO, 10/11/2024 4:01 PM Chase Aponte DO CT Final Result * XR KNEE RT 2V (10/11/2024 3:12 PM CDT) Anatomical Region Laterality Modality Knee Radiographic Cindy ging 10/11/2024 4:11 PM CDT Impressions 10/11/2024 4:18 PM CDT IMPRESSION: 1. No evidence of acute fracture or dislocation right knee or right hand. 2. There appears to be fluid in the nondistended suprapatellar bursa. 3. Wrist and leg peripheral vascular disease. Referred By: Interpreted By: Anna Angulo DO, 10/11/2024 4:11 PM Narrative 10/11/2024 4:18 PM CDT [place] [address] CLINICAL INDICATION: 44-year-old female. Reason for examination: Unwitnessed fall. 10/11/2024 2:59 PM, Elena Trinidad N: UNWITNESSED FALL Patient on heparin drip 10/11/2024 2:59 PM, Elena Trinidad N: UNWITNESSED FALL ON R HAND FOOSH EXAMINATION: Right knee radiograph Right hand radiographs TECHNIQUE: AP crosstable lateral view right knee. Three-view survey right hand COMPARISON: Three-view survey right hand yesterday at 1830 PM No previous imaging right knee FINDINGS: Right knee: No evidence of acute fracture or dislocation. All 3 joint compartments are normally maintained. There appears to be fluid in the nondistended suprapatellar bursa. Tram track calcification of the SFA throughout the adductor canal also outlines the popliteal artery and the below knee trifurcation. Right hand: Unchanged since yesterday. No evidence of acute fracture or dislocation. The radiocarpal and radioulnar joints are intact. Normal arch to the carpal bones and the metacarpals and phalanges are intact. Rounded prominence of the thenar eminence unchanged since yesterday. No subcutaneous gas or radiopaque foreign body Redemonstration of tram track calcification radial and ulnar arteries also faint calcification of palmar arch. Procedure Note Anna Angulo MD - 10/11/[address] [address] CLINICAL INDICATION: 44-year-old female. Reason for examination: Unwitnessed fall. 10/11/2024 2:59 PM, Elena Trinidad N: UNWITNESSED FALL Patient on heparin drip 10/11/2024 2:59 PM, Elena Trinidad N: UNWITNESSED FALL ON R HAND FOOSH EXAMINATION: Right knee radiograph Right hand radiographs TECHNIQUE: AP crosstable lateral view right knee. Three-view survey right hand COMPARISON: Three-view survey right hand yesterday at 1830 PM No previous imaging right knee FINDINGS: Right knee: No evidence of acute fracture or dislocation. All 3 joint compartmentsare normally maintained. There appears to be fluid in the nondistendedsuprapatellar bursa. Tram track calcification of the SFA throughout the adductor canal alsooutlines the popliteal artery and the below knee trifurcation. Right hand: Unchanged since yesterday. No evidence of acute fracture or dislocation.The radiocarpal and radioulnar joints are intact. Normal arch to thecarpal bones and the metacarpals and phalanges are intact. Roundedprominence of the thenar eminence unchanged since yesterday. Nosubcutaneous gas or radiopaque foreign body Redemonstration of tram track calcification radial and ulnar arteries alsofaint calcification of palmar arch. IMPRESSION: 1. No evidence of acute fracture or dislocation right knee or righthand. 2. There appears to be fluid in the nondistended suprapatellar bursa. 3. Wrist and leg peripheral vascular disease. Referred By: Interpreted By: Anna Angulo DO, 10/11/2024 4:11 PM Chase Aponte DO GENERAL IMAGING Final Result * XR HAND RT 3V (10/11/2024 3:12 PM CDT) Only the most recent of2 resultswithin the time period is included. Anatomical Region Laterality Modality Hand Radiographic Cindy ging 10/11/2024 4:11 PM CDT Impressions 10/11/2024 4:18 PM CDT IMPRESSION: 1. No evidence of acute fracture or dislocation right knee or right hand. 2. There appears to be fluid in the nondistended suprapatellar bursa. 3. Wrist and leg peripheral vascular disease. Referred By: Interpreted By: Anna Angulo DO, 10/11/2024 4:11 PM Narrative 10/11/2024 4:18 PM CDT [address] [address] CLINICAL INDICATION: 44-year-old female. Reason for examination: Unwitnessed fall. 10/11/2024 2:59 PM, Elena Trinidad N: UNWITNESSED FALL Patient on heparin drip 10/11/2024 2:59 PM, Elena Trinidad N: UNWITNESSED FALL ON R HAND FOOSH EXAMINATION: Right knee radiograph Right hand radiographs TECHNIQUE: AP crosstable lateral view right knee. Three-view survey right hand COMPARISON: Three-view survey right hand yesterday at 1830 PM No previous imaging right knee FINDINGS: Right knee: No evidence of acute fracture or dislocation. All 3 joint compartments are normally maintained. There appears to be fluid in the nondistended suprapatellar bursa. Tram track calcification of the SFA throughout the adductor canal also outlines the popliteal artery and the below knee trifurcation. Right hand: Unchanged since yesterday. No evidence of acute fracture or dislocation. The radiocarpal and radioulnar joints are intact. Normal arch to the carpal bones and the metacarpals and phalanges are intact. Rounded prominence of the thenar eminence unchanged since yesterday. No subcutaneous gas or radiopaque foreign body Redemonstration of tram track calcification radial and ulnar arteries also faint calcification of palmar arch. Procedure Note Anna Angulo MD - 10/11/[address] [address] CLINICAL INDICATION: 44-year-old female. Reason for examination: Unwitnessed fall. 10/11/2024 2:59 PM, Elena Trinidad N: UNWITNESSED FALL Patient on heparin drip 10/11/2024 2:59 PM, Elena Trinidad N: UNWITNESSED FALL ON R HAND FOOSH EXAMINATION: Right knee radiograph Right hand radiographs TECHNIQUE: AP crosstable lateral view right knee. Three-view survey right hand COMPARISON: Three-view survey right hand yesterday at 1830 PM No previous imaging right knee FINDINGS: Right knee: No evidence of acute fracture or dislocation. All 3 joint compartmentsare normally maintained. There appears to be fluid in the nondistendedsuprapatellar bursa. Tram track calcification of the SFA throughout the adductor canal alsooutlines the popliteal artery and the below knee trifurcation. Right hand: Unchanged since yesterday. No evidence of acute fracture or dislocation.The radiocarpal and radioulnar joints are intact. Normal arch to thecarpal bones and the metacarpals and phalanges are intact. Roundedprominence of the thenar eminence unchanged since yesterday. Nosubcutaneous gas or radiopaque foreign body Redemonstration of tram track calcification radial and ulnar arteries alsofaint calcification of palmar arch. IMPRESSION: 1. No evidence of acute fracture or dislocation right knee or righthand. 2. There appears to be fluid in the nondistended suprapatellar bursa. 3. Wrist and leg peripheral vascular disease. Referred By: Interpreted By: Anna Angulo DO, 10/11/2024 4:11 PM us Chase Aponte DO GENERAL IMAGING Final Result * USV ZARA DUPLEX UP EXT RT (10/11/2024 9:11 AM CDT) Anatomical Region Laterality Modality Extremity Vascular Ultraso und 10/11/2024 7:49 AM CDT Narrative 10/11/2024 9:25 AM CDT VENOUS DUPLEX IMAGING RIGHT UPPER EXTREMITY VASCULAR LAB Pat.Name: NIDHI SMART.ID: [id number] .Date: 10/11/2024 Refer.MD: Sulema Lennon Exam Time: 7:49:00 AM Study Type:EMMANUEL VS Venous Duplex Arm Rt Age: 1 1980,44Y Sex: F Sonogrphr: Madison Rodrigues RVT Pat. Stat.:Inpatient Room: 519 History / Clinical:Pain to right hand, severe at times, for the last 3 weeks. AVF attempted to right arm 3 years ago. Also has L upper arm AV graft in place. Procedures: Castro scale, Color Doppler imaging, Doppler Spectral Analysis ++++++++++++++++++++++++++++++++++++ SUMMARY: ++++++++++++++++++++++++++++++++++++ Right upper extremity exam: There is chronic, deep vein venous filling defects in the internal jugular vein. There are NO apparent, deep vein, ACUTE character venous filling defects visualized in the subclavian, axillary, brachial, or radial veins. There is a small thrombus at the tip of the IV in the right cephalic vein at the antecubital fossa. Resting venous flow is normal pulsatile/phasic in the subclavian vein. Left upper extremity LIMITED: Resting venous flow is normal pulsatile/phasic in the subclavian vein. The AV graft in the left upper extremity is thrombosed with normal triphasic flow in the brachial artery proximal and distal to the AV graft. OF NOTE: There is normal triphasic arterial flow in the distal brachial and distal right radial arteries. There is normal triphasic arterial flow in the right palmar arch. There is no patent fistula visualized in the right upper extremity. CONCLUSION: No evidence of acute deep vein thrombosis of the right upper extremity. 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 There is a small thrombus at the tip of the IV in the right cephalic vein at the antecubital fossa. <Electronic Signature> 10/11/2024 09:25 AM Renetta Berry M.D. Procedure Note Renetta Berry MD - 10/11/2024 VENOUS DUPLEX IMAGING RIGHT UPPER EXTREMITY VASCULAR LAB Pat.Name: NIDHI SMART Sonali.ID: [id number] .Date: 10/11/2024 Refer.MD: Sulema Lennon Exam Time: 7:49:00 AM Study Type:EMMANUEL VS Venous Duplex Arm Rt Age: 1 1980,44Y Sex: F Sonogrphr: Madison Rodrigues, RVT Pat. Stat.:Inpatient Room: 519 History / Clinical:Pain to right hand, severe at times, for the last 3 weeks. AVF attempted to right arm 3 years ago. Also has L upper arm AV graft in place. Procedures: Castro scale, Color Doppler imaging, Doppler Spectral Analysis ++++++++++++++++++++++++++++++++++++ SUMMARY: ++++++++++++++++++++++++++++++++++++ Right upper extremity exam: There is chronic, deep vein venous filling defects in the internal jugular vein. There are NO apparent, deep vein, ACUTE character venous filling defects visualized in the subclavian, axillary, brachial, or radial veins. There is a small thrombus at the tip of the IV in the right cephalic vein at the antecubital fossa. Resting venous flow is normal pulsatile/phasic in the subclavian vein. Left upper extremity LIMITED: Resting venous flow is normal pulsatile/phasic in the subclavian vein. The AV graft in the left upper extremity is thrombosed with normal triphasic flow in the brachial artery proximal and distal to the AV graft. OF NOTE: There is normal triphasic arterial flow in the distal brachial and distal right radial arteries. There is normal triphasic arterial flow in the right palmar arch. There is no patent fistula visualized in the right upper extremity. CONCLUSION: No evidence of acute deep vein thrombosis of the right upper extremity. 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 There is a small thrombus at the tip of the IV in the right cephalic vein at the antecubital fossa. <Electronic Signature> 10/11/2024 09:25 AM Renetta Berry M.D. us Wagner Paz MD,PHD US VASC Final Resu lt * XR WRIST RT MIN 3V (10/10/2024 6:37 PM CDT) Anatomical Region Laterality Modality Wrist Radiographic Cindy ging 10/10/2024 6:41 PM CDT Impressions 10/10/2024 6:44 PM CDT IMPRESSION: No acute abnormality. Ordered By: TITA MCGUIRE Interpreted By: Hernandez Cordero MD, 10/10/2024 6:41 PM Narrative 10/10/2024 6:44 PM CDT [address] [address] Examination: XR WRIST RT MIN 3V, XR HAND RT 3V Exam time: 10/10/2024 6:24 PM Clinical history: Pain right wrist/hand. Onset of symptoms 3 weeks ago. History of cellulitis. Comparison: No prior exam Technique: PA, oblique, and lateral views right wrist. PA, oblique, and lateral views right hand. Findings: Right distal radius and ulna appear unremarkable. Carpal bone relationships and appearances appear unremarkable. Significant atherosclerotic calcifications radius and ulna artery distributions as well as within the right hand. No evidence of fracture, focal bone lesions, or abnormal periosteal reactions throughout the metacarpals or phalanges. No evidence of subluxation or dislocations. No definitive evidence of localized abnormal soft tissue densities throughout the right hand. Procedure Note Hernandez Cordero MD - 10/10/[address] [address] Examination: XR WRIST RT MIN 3V, XR HAND RT 3V Exam time: 10/10/2024 6:24 PM Clinical history: Pain right wrist/hand. Onset of symptoms 3 weeks ago.History of cellulitis. Comparison: No prior exam Technique: PA, oblique, and lateral views right wrist. PA, oblique, andlateral views right hand. Findings: Right distal radius and ulna appear unremarkable. Carpal bonerelationships and appearances appear unremarkable. Significantatherosclerotic calcifications radius and ulna artery distributions aswell as within the right hand. No evidence of fracture, focal bone lesions, or abnormal periostealreactions throughout the metacarpals or phalanges. No evidence ofsubluxation or dislocations. No definitive evidence of localized abnormalsoft tissue densities throughout the right hand. IMPRESSION: No acute abnormality. 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
--- OUTSIDE RECORDS SUMMARY | 2024-11-29 21:11 | XMS_ITS | Encounter Summary ---
Author Organization [facility] Address [address] [place] [address] Care Team Providers Care Loan Operations Specialist Name Role Phone Sulema Lennon TENTERING MACHINE OFF BEARER Primary Care Provider [phone] Reason for Visit * Reason Onset Date Comments Advice 10/31/2024 Nurse Triage - A fter Hours ([id number]) Encounter Details Date Type Department Care Team (Late st Contact Info) Description 10/31/2024 Telephone [place] [address] [address] [facility] [address] [place] [phone] Sulema Lennon, TENTERING MACHINE OFF BEARER [address] [place] [address] Advice (Nurse Triage - After Hours ([id number])/) Social History Tobacco Use Types Packs/Day Years Used Date Smoking Tobacco: Never Alcohol Use Standard Drinks/Week Comments Not Currently 0 (1 standard drink = 0.6 oz pur e alcohol) OASIS D0700: Social Isolation Answer Da te Recorded Frequency of experiencing loneliness or isolatio n Never 10/30/2024 OASIS A1250: Transportation Answer Date Recorded Lack of Transportation (Medical) No 10/30/2024 Lack of Transportation (Non-Medical) No 10/30/2024 Patient Unable or Declines to Respond No 10/30/2024 OASIS B1300: Health Literacy Answer Pito e Recorded Frequency of needing help to read materials from doctor or pharmacy Sometimes 10/30/2024 [facility] Utilities Answer Date Recorded In the past 12 months has e electric, gas, oil, or water company [...] any time in the past 12 m [facility], were you homeless or living in a intermediate (including now)? No 10/11/2024 Comments Unknown Sex [...] AM CDT Addie Drummond RN Active documented as of this encounter Mental Status * Because of a physical, mental, or emotional condition, do you have serious difficulty concentrating, remembering, or making decisions? Answer Entry Date Author Status No 10/11/2024 12:18 AM CDT Addie Drummond RN Active documented in this encounter Progress Notes * Miguel Myrick - 10/31/2024 6:53 AM CDT Nurse Triage - After Hours ([id number]) Comments Critical Lab Result Regarding: Hospice / Location Unknown / Dr. Mccarthy Regarding: Hospice -[facility] Assessment Notes PC from [facility] lab with critical results. Reports creatinine 6.88. PC to OC Cindy Bruce and advised of results. CALL PCP WITHIN 24 HOURS:CARE ADVICE given per PCP Call - No Triage (Adult) guideline. 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
[2024-11-29 21:18] LABS: Alanine Aminotransferase 30 U/L (6-35); Albumin Level 3.7 g/dL (3.5-5.1); Alkaline Phosphatase 347 U/L (38-126); Anion Gap 6 mmol/L (4-12); Aspartate Amino Transferase 38 U/L (14-36); Bilirubin,Total 0.6 mg/dL (0.2-1.3); Blood Urea Nitrogen 27 mg/dL (7-17); Calcium 9.6 mg/dL (8.4-10.2); Carbon Dioxide 30 mmol/L (22-30); Chloride 99 mmol/L (98-107); Estimated CRCL calculation 11 ml/min; Estimated Glomerular Filt Rate 7; Glucose 142 mg/dL (65-110); Potassium 4.8 mmol/L (3.4-5.0); Sodium 135 mmol/L (137-145); Total Protein 8.0 g/dL (6.3-8.2)
--- NOTE | 2024-11-29 21:20 | ED_ITS ---
HPI - General Adult General Chief complaint: Shortness of Breath/Dyspnea Stated complaint: Difficulty breathing History of Present Illness HPI narrative: Patient is a 44-year-old female presents emergency department with chief complaint of shortness of breath patient reports he is a Thursday dialysis patient and reports that she went to dialysis today completed her oral run took a nap this evening and then woke up feeling short of breath the patient states that her blood pressure was significantly elevated reports she normally runs in the 160s and today her blood pressure was in the 200s patient reports she has can not get a good deep breath denies wheezing denies fever denies cough Related Data Home Medications ?Medication ?Instructions ?Recorded ?Confirmed ?Last Taken ?Type lactulose 10 gram/15 mL oral 15 ml PO QHS PRN constipa tion 11/02/24 11/07/24 Unknown History solution sevelamer HCl 800 mg tablet 1,600 mg PO TID 11/02/24 0 11/07/24 11/06/24 History Allergies Allergy/AdvReac Type Severity Reaction Status Date / Time metronidazole Allergy Intermediate Rash Verified 11/07/24 10:12 omeprazole Allergy Intermediate Rash Verified 11/07/24 10:12 Review of Systems 2 Review of Systems: A 10 system review of systems was completed on the patient and is negative except for what is stated in the HPI. Nursing and ancillary documentation was reviewed. [facility] Past Medical History Medical History Insulin dependent type 2 diabetes mellitus End-stage renal disease on peritoneal dialysis Obesity (BMI 30-39.9) Erythropoietin deficiency anemia Gastroesophageal reflux Arthritis Right wrist left knee Irritable bowel syndrome Diverticulitis Pneumonia Peripheral neuropathy Hypertension Surgical History Surgical History History of section x3 History of dilation and curettage History of appendectomy History of cholecystectomy History of salpingo-oophorectomy History of tubal ligation Family History Family History Mother Diabetes mellitus Breast cancer Sibling History of blood clots due to blood clot Heart disease Sister has something wrong with her heart Father Hypertension Prostate carcinoma Daughter , 06/08/2021, 19yo Pulmonary embolism Social History Social History Social History: Surrogate medical decision maker: Robert Smith, daughter. Code status: Full code. Smoking status: Never smoker Second hand tobacco smoke exposure: Yes Alcohol intake: never Substance use: never Substance use type: does not use Do You Feel Safe in your Home?: Yes Lack of Transportation: YES Lack of Food: Never True Current Housing: I Have Housing Concerned About Future Housing: No Difficulty Paying Gas/Electric Bills: No Difficulty Paying for Meds: No Currently Unemployed: No Education: Decline to Answer Difficulty w/ Childcare or Family Care: No Living arrangements: with family Additional living arrangements comments: Lives with family in [place]. 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 Spiritual care concerns: No Agree to blood products: Yes Exam 2 Narrative: GENERAL: Well-appearing, well-nourished, and in no acute distress. HEAD: Normocephalic, atraumatic. EYES: PERRLA and EOMI. ENT: Nares clear, no rhinorrhea or epistaxis. Mucous membranes moist. NECK: Supple. CHEST: Clear to auscultation. No respiratory distress. Tunneled dialysis access presently left anterior chest wall HEART: Regular rate and rhythm. No murmur heard. Normal peripheral pulses. ABDOMEN: Soft, nontender, nondistended, normal active bowel sounds. EXTREMITIES: Normal range of motion. No edema. SKIN: Warm, dry, no rash. NEURO: No focal deficits. Alert and oriented x3. PSYCH: Normal mood and affect. Course Vital Signs Vital signs: Vital Signs Temperature 36.7 C 11/29/24 20:50 Pulse Rate 77 11/29/24 20:50 Respiratory Rate 18 11/29/24 20:50 Blood Pressure 244/101 H 11/29/24 20:50 Pulse Oximetry 100 11/29/24 20:50 Oxygen Delivery Room Air 11/29/24 20:50 Temperature 36.7 C 11/29/24 20:50 Pulse Rate 77 11/29/24 20:50 Respiratory Rate 18 11/29/24 20:50 Blood Pressure 244/101 H 11/29/24 20:50 Pulse Oximetry 100 11/29/24 22:09 Oxygen Delivery Room Air 11/29/24 22:09 Fraction of Inspired Oxygen 21 11/29/24 22:09 Medical Decision Making MDM Narrative Medical decision making narrative: Differential diagnosis includes hypertensive urgency, hypertensive crisis, pneumonia, pulmonary edema, fluid overload Chest x-ray showed pleural effusion with possible infiltrate Patient was moderately hypertensive and was treated with IV antihypertensives in the emergency department and is doing much better Troponin was negative The patient be admitted to the IMU under the hospitalist service Vital Signs Vital Signs: Vital Signs Temperature 36.7 C 11/29/24 20:50 Pulse Rate 77 11/29/24 20:50 Respiratory Rate 18 11/29/24 20:50 Blood Pressure 244/101 H 11/29/24 20:50 Pulse Oximetry 100 11/29/24 20:50 Oxygen Delivery Room Air 11/29/24 20:50 Temperature 36.7 C 11/29/24 20:50 Pulse Rate 77 11/29/24 20:50 Respiratory Rate 18 11/29/24 20:50 Blood Pressure 244/101 H 11/29/24 20:50 Pulse Oximetry 100 11/29/24 22:09 Oxygen Delivery Room Air 11/29/24 22:09 Fraction of Inspired Oxygen 21 11/29/24 22:09 Lab Data 11/29/24 20:58 11/29/24 20:58 Labs: Lab Results 11/29/24 11/29/24 11/29/24 Range/Units 20:58 21:23 21:53 WBC 8.7 (4.5-10.0) K/mm3 RBC 3.58 L (4.2-5.4) M/mm3 Hgb 8.9 L (12.0-15.0) g/dL Hct 29.3 L (37.0-47.0) % MCV 81.8 (80-100) fl MCH 24.9 L (26-34) pg MCHC 30.4 L (32-36) g/dl RDW 18.5 H (11.5-14.5) % Plt Count 169 (150-375) k/mm3 MPV 8.9 (7.4-10.4) fl Immature Gran % (Auto) 0.2 (0-0.5) % Neut % (Auto) 50.7 (45.5-73.1) % Lymph % (Auto) 34.9 (18.3-44.2) % Harnett % (Auto) 6.7 (2.6-8.5) % Eos % (Auto) 6.6 H (0-4.4) % Baso % (Auto) 0.9 (0.2-1.2) % Lymph # (Auto) 3.03 (0.9-3.2) K/mm3 Harnett # (Auto) 0.6 (0.1-0.6) K/mm3 Eos # (Auto) 0.6 H (0-0.3) K/mm3 Baso # (Auto) 0.1 (0.0-0.1) K/mm3 Abs Immat Gran (auto) 0.02 (0.00-0.031) K/mm3 Absolute Neuts (auto) 4.4 (1.3-6.7) K/mm3 Absolute Nucleated RBC 0.000 (0.0-0.012) K/mm3 Nucleated RBC % 0.0 (0.0-0.2) % Sodium 135 L (137-145) mmol/L Potassium 4.8 (3.4-5.0) mmol/L Chloride 99 (98-107) mmol/L Carbon Dioxide 30 (22-30) mmol/L Anion Gap 6 (4-12) mmol/L BUN 27 H D (7-17) mg/dL Creatinine 6.16 H (0.7-1.0) mg/dL Estim Creat Clear Calc 11 ml/min Estimated GFR 7 L (59 - ) Glucose 142 H (65-110) mg/dL Lactic Acid 0.8 (0.7-2.0) mmol/L Calcium 9.6 (8.4-10.2) mg/dL Magnesium 2.1 (1.6-2.3) mg/dL Total Bilirubin 0.6 (0.2-1.3) mg/dL AST 38 H (14-36) U/L ALT 30 (6-35) U/L Alkaline Phosphatase 347 H (38-126) U/L Troponin I < 0.012 (0.000-0.034) ng/mL NT-Pro-B Natriuret Pep > 13279 H (19.9-100) pg/mL Total Protein 8.0 (6.3-8.2) g/dL Albumin 3.7 (3.5-5.1) g/dL Procalcitonin 0.7 ng/mL Influenza A (RT-PCR) Negative (Negative) Influenza B (RT-PCR) Negative (Negative) RSV (RT-PCR) Negative (Negative) SARS-CoV-2 RNA (RT-PCR) Negative (Negative) 11/30/24 Range/Units 00:11 WBC (4.5-10.0) K/mm3 RBC (4.2-5.4) M/mm3 Hgb (12.0-15.0) g/dL Hct (37.0-47.0) % MCV (80-100) fl MCH (26-34) pg MCHC (32-36) g/dl RDW (11.5-14.5) % Plt Count (150-375) k/mm3 MPV (7.4-10.4) fl Immature Gran % (Auto) (0-0.5) % Neut % (Auto) (45.5-73.1) % Lymph % (Auto) (18.3-44.2) % Harnett % (Auto) (2.6-8.5) % Eos % (Auto) (0-4.4) % Baso % (Auto) (0.2-1.2) % Lymph # (Auto) (0.9-3.2) K/mm3 Harnett # (Auto) (0.1-0.6) K/mm3 Eos # (Auto) (0-0.3) K/mm3 Baso # (Auto) (0.0-0.1) K/mm3 Abs Immat Gran (auto) (0.00-0.031) K/mm3 Absolute Neuts (auto) (1.3-6.7) K/mm3 Absolute Nucleated RBC (0.0-0.012) K/mm3 Nucleated RBC % (0.0-0.2) % Sodium (137-145) mmol/L Potassium (3.4-5.0) mmol/L Chloride (98-107) mmol/L Carbon Dioxide (22-30) mmol/L Anion Gap (4-12) mmol/L BUN (7-17) mg/dL Creatinine (0.7-1.0) mg/dL Estim Creat Clear Calc ml/min Estimated GFR (59 - ) Glucose (65-110) mg/dL Lactic Acid (0.7-2.0) mmol/L Calcium (8.4-10.2) mg/dL Magnesium (1.6-2.3) mg/dL Total Bilirubin (0.2-1.3) mg/dL AST (14-36) U/L ALT (6-35) U/L Alkaline Phosphatase (38-126) U/L Troponin I Pending (0.000-0.034) ng/mL NT-Pro-B Natriuret Pep (19.9-100) pg/mL Total Protein (6.3-8.2) g/dL Albumin (3.5-5.1) g/dL Procalcitonin ng/mL Influenza A (RT-PCR) (Negative) Influenza B (RT-PCR) (Negative) RSV (RT-PCR) (Negative) SARS-CoV-2 RNA (RT-PCR) (Negative) ABG Data ABG results: 11/29/24 21:50 Puncture Site Left radial ABG pH 7.489 H ABG pCO2 36.3 ABG pO2 80.6 ABG PO2/FiO2 Ratio 3.84 ABG HCO3 27.0 H ABG O2 Saturation 96.7 ABG O2 Content 13.2 L ABG Base Excess 3.5 A-a Gradient 25.7 Oxyhemoglobin 95.0 Total Hemoglobin 9.8 L O2 Delivery Device Room air O2 Liters/Min Not Reportable FiO2 21 Critical Care Time Critical Care Time Critical Care Time: Yes Total Critical Care Time: 35 Discharge Plan Discharge Clinical Impression: Hypertensive urgency, ESRD (end stage renal disease), Pneumonia Patient Disposition: Still a Patient Condition: Stable Patient Language: Welsh Prescriptions: No Action (DME) lancets 31 gauge misc See Rx Instructions .ROUTE .MEDSUPPLY Qty: 100 1RF Rx Instructions: bid amlodipine 10 mg tablet 10 mg PO DAILY Qty: 90 1RF (DME) blood-glucose meter [Blood Glucose Monitoring] Kit See Rx Instructions .ROUTE .MEDSUPPLY Qty: 1 0RF Rx Instructions: Check glucose once daily doxazosin [Cardura] 2 mg tablet 2 mg PO QHS Qty: 30 1RF losartan 100 mg tablet 100 mg PO DAILY Qty: 30 1RF lactulose 10 gram/15 mL solution 15 ml PO QHS PRN (Reason: constipation) insulin degludec 100 unit/mL (3 mL) insulin pen 10 unit subcut DAILY Qty: 15 1RF Eliquis 5 mg tablet 5 mg PO BID Qty: 60 5RF labetalol 200 mg tablet 200 mg PO BID Qty: 180 1RF sevelamer HCl 800 mg tablet 1,600 mg PO TID Rx Instructions: must administer with a meal/food oxycodone 5 mg Tablet 5 mg PO Q4H PRN (Reason: Pain Rated 7-10) 5 Days Qty: 10 0RF levofloxacin 750 mg tablet 750 mg PO Q48H 10 Days Qty: 5 0RF (DME) pen needle, diabetic [Easy Comfort Pen [place]] 32 gauge x 5/32 needle See Rx Instructions .Route Qty: 50 3RF Rx Instructions: Inject insulin once daily As directed gabapentin 100 mg capsule See Rx Instructions .ROUTE .COMPLEX Qty: 540 1RF Dose Instruction: TAKE 2 CAPSULES BY MOUTH 3 TIMES DAILY Rx Instructions: TAKE 2 CAPSULES BY MOUTH 3 TIMES DAILY (DME) FreeStyle Alexandro 3 Plus Sensor Device See Rx Instructions .Route Qty: 2 3RF Rx Instructions: Check glucose continuously every 15 days As directed acetaminophen 500 mg tablet 1,000 mg PO TID PRN (Reason: tessie) Qty: 180 1RF Follow-up/Referrals: Sulema Lennon APRN [Primary Care Provider, Internal Medicine] Time of Disposition: 00:31
[2024-11-29 21:22] LABS: Magnesium 2.1 mg/dL (1.6-2.3)
[2024-11-29 21:30] VITALS: BP 246/107; PULSE 81; RESP 15; O2SAT 100
[2024-11-29 21:35] LABS: Troponin I < 0.012 ng/mL (0.000-0.034)
[2024-11-29 21:38] LABS: NT Pro B Type Natriuretic Pept > 30000 pg/mL (19.9-100)
[2024-11-29 21:39] LABS: Procalcitonin 0.7 ng/mL
[2024-11-29] MEDS: NITROGLYCERIN SL 0.4 MG TABLET SUBLINGUAL (21:53)
[2024-11-29 22:04] LABS: Influenza A QL RT-PCR Negative (Negative); Influenza B QL RT-PCR Negative (Negative); RSV RNA, RT-PCR Negative (Negative); SARS-CoV-2 RNA PCR Negative (Negative)
[2024-11-29 22:05] LABS: Alveolar/Arterial O2 Gradient 25.7 mmHg; Fractional Inspired Oxygen 21 %; HCO3 ABG 27.0 mEq/l (22.0-26.0); Oxygen Content ABG 13.2 %vol (16.0-22.0); Oxygen Saturation ABG 96.7 % (95.0-100.0); PCO2 ABG 36.3 mmHg (35.0-45.0); PO2 ABG 80.6 mmHg (80.0-100.0); PO2 FiO2 Ratio Arterial Blood 3.84 %
[2024-11-29 22:08] LABS: Modified Allen's Test Pass; Site Drawn LEFT RADIAL
[2024-11-29 22:09] VITALS: O2SAT 100
[2024-11-29 23:30] VITALS: BP 227/91; PULSE 83; RESP 24; O2SAT 100
[2024-11-30] VITALS (29 sets, daily range): BP systolic 157–216; BP diastolic 76–96; PULSE 75–93; RESP 14–26; TEMP 36.4–36.9; O2SAT 95–100; BMI 33.5
[2024-11-30] MEDS: cefTRIAXone 1 GM in SODIUM CHLORIDE 0.9% IV 50 ML 100 ML IVPB ×2 (00:09→22:11)
--- NOTE | 2024-11-30 00:11 | ECG_ITS ---
Test Date: 2024-11-30 00:17:22 Measurements Intervals [place] Rate: 80 P: 57 NM: 144 QRS: 10 QRSD: 77 T: 69 QT: 394 QTc: 454 Interpretive Statements SINUS RHYTHM POSSIBLE ANTERIOR MYOCARDIAL INFARCTION , OF INDETERMINATE AGE BORDERLINE T WAVE ABNORMALITY- HIGH LATERAL LEADS ABNORMAL ECG Compared to ECG 04/04/2024 14:28:05 No significant changes Electronically Signed On 11-30-2024 06:12:45 CDT by Tomasz Scott D.O.
[2024-11-30] MEDS: AZITHROMYCIN IV 500 MG in SODIUM CHLORIDE 0.9% IV 250 ML IVPB ×2 (00:26→22:12)
[2024-11-30 00:37] LABS: Troponin I < 0.012 ng/mL (0.000-0.034)
--- NOTE | 2024-11-30 01:20 | PM.IMHP ---
H&P: HPI History of Present Illness Date/Time: 11/30/24 01:20 Chief Complaint: Shortness of breath Narrative: A pleasant 44-year-old [place] female with PMH ESRD on dialysis Thursday followed by Dr. Fernandez presents shortness of breath. Denies chest pain, cough, fever. She woke up from a nap with shortness of breath. She last got her dialysis on the day of admission 11/29/2024. Elevated blood pressure in the ER 227/91, improved 176/91 after labetalol 60 mg IV total, hydralazine 20 mg IV x1. Patient given ceftriaxone and azithromycin. Chest x-ray shows small bilateral pleural effusion with bibasilar atelectasis and/or pneumonia. Review of Systems Review of Systems: All systems reviewed & are unremarkable except as noted in HPI and below (Subjective) PMFSH Past Medical History Medical History Insulin dependent type 2 diabetes mellitus End-stage renal disease on peritoneal dialysis Obesity (BMI 30-39.9) Erythropoietin deficiency anemia Gastroesophageal reflux Arthritis Right wrist left knee Irritable bowel syndrome Diverticulitis Pneumonia Peripheral neuropathy Hypertension Surgical History Surgical History History of section x3 History of dilation and curettage History of appendectomy History of cholecystectomy History of salpingo-oophorectomy History of tubal ligation Family History Family History Mother Diabetes mellitus Breast cancer Sibling History of blood clots due to blood clot Heart disease Sister has something wrong with her heart Father Hypertension Prostate carcinoma Daughter , 06/08/2021, 19yo Pulmonary embolism Social History Social History Social History: Surrogate medical decision maker: Robert Smith, daughter. Code status: Full code. Smoking status: Never smoker Second hand tobacco smoke exposure: Yes Alcohol intake: never Substance use: never Substance use type: does not use Do You Feel Safe in your Home?: Yes Lack of Transportation: YES Lack of Food: Never True Current Housing: I Have Housing Concerned About Future Housing: No Difficulty Paying Gas/Electric Bills: No Difficulty Paying for Meds: No Currently Unemployed: No Education: Decline to Answer Difficulty w/ Childcare or Family Care: No Living arrangements: with family Additional living arrangements comments: Lives with family in [place]. 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 Spiritual care concerns: No Agree to blood products: Yes Meds Home Medications and Allergies Home Medications ?Medication ?Instructions ?Recorded ?Confirmed ?Type lancets 31 gauge #100 ea 12/30/23 11/07/24 Rx amlodipine 10 mg tablet 10 mg PO DAILY #90 tabs 06/09/24 11/07/24 Rx pen needle, diabetic 32 gauge x #50 ea 08/01/24 11/07/24 Rx 5/32 (Easy Comfort Pen [place]) blood-glucose meter (Blood Glucose #1 ea 08/08/24 11/07/24 Rx Monitoring kit) doxazosin 2 mg tablet (Cardura) 2 mg PO QHS #30 tabs 09/28/24 11/07/24 Rx losartan 100 mg tablet 100 mg PO DAILY #30 tabs 09/28/24 11/07/24 Rx apixaban 5 mg tablet (Eliquis) 5 mg PO BID #60 tabs 11/02/24 11/07/24 Rx gabapentin 100 mg capsule See Rx Instructions .Route 11/02/24 11/07/24 Rx .COMPLEX #540 caps insulin degludec 100 unit/mL (3 10 unit (0.1 mL) subcut DAILY #15 11/02/24 11/07/24 Rx mL) subcutaneous pen mL labetalol 200 mg tablet 200 mg PO BID #180 tabs 11/02/24 11/07/24 Rx lactulose 10 gram/15 mL oral 15 ml PO QHS PRN constipation 11/02/24 11/07/24 History solution sevelamer HCl 800 mg tablet 1,600 mg PO TID 11/02/24 11/07/24 History blood-glucose sensor (FreeStyle #2 ea 11/03/24 11/07/24 Rx Alexandro 3 Plus Sensor device) acetaminophen 500 mg tablet 1,000 mg (2 x 500 mg) PO TID PRN 11/04/24 11/07/24 Rx tessie #180 tabs levofloxacin 750 mg tablet 750 mg PO Q48H 10 days #5 tabs 11/08/24 Rx oxycodone 5 mg tablet 5 mg PO Q4H PRN Pain Rated 7-10 5 11/08/24 Rx days #10 tabs Allergies Allergy/AdvReac Type Severity Reaction Status Date / Time metronidazole Allergy Intermediate Rash Verified 11/07/24 10:12 omeprazole Allergy Intermediate Rash Verified 11/07/24 10:12 Vital Signs Vital Signs - 24 hr 11/29/24 20:50 11/29/24 21:00 11/29/24 21:30 Temperature 98.1 F Pulse Rate 77 81 Respiratory Rate 18 15 Blood Pressure 244/101 H 246/107 H Pulse Oximetry 100 100 Oxygen Delivery Room Air Room Air Fraction of Inspired Oxygen 11/29/24 22:09 11/29/24 23:30 11/30/24 00:06 Temperature Pulse Rate 83 80 Respiratory Rate 24 H 19 Blood Pressure 227/91 H 216/96 H Pulse Oximetry 100 100 100 Oxygen Delivery Room Air Fraction of Inspired Oxygen 21 11/30/24 00:21 11/30/24 00:30 11/30/24 00:31 Temperature Pulse Rate 87 87 85 Respiratory Rate 18 26 H 24 H Blood Pressure 185/86 H 171/81 H Pulse Oximetry 98 Oxygen Delivery Fraction of Inspired Oxygen 11/30/24 00:45 11/30/24 00:46 Temperature Pulse Rate 83 Respiratory Rate 23 H 22 H Blood Pressure 176/91 H Pulse Oximetry 100 Oxygen Delivery Fraction of Inspired Oxygen Exam Const: General: comfortable and no acute distress Other: A&O x3 Eyes: Pupils: Equal, round and reactive pupils present Neck: Neck: supple Resp: Effort & Inspection: normal respiratory effort Other: Decrease breath sounds bilateral bases. No wheezing. Cardio: Rate: regular rate Rhythm: regular rhythm Neuro: Motor exam (neuro): 5/5 motor strength present throughout Extrem: General: no edema H&P: Results Labs Labs: Short CBC 11/29/24 Range/Units 20:58 WBC 8.7 (4.5-10.0) K/mm3 Hgb 8.9 L (12.0-15.0) g/dL Hct 29.3 L (37.0-47.0) % Plt Count 169 (150-375) k/mm3 [facility] 11/29/24 20:58 Sodium 135 L Potassium 4.8 Chloride 99 Carbon Dioxide 30 BUN 27 H D Creatinine 6.16 H Glucose 142 H Calcium 9.6 Cardiac Enzymes 11/29/24 11/30/24 Range/Units 20:58 00:11 Troponin I < 0.012 < 0.012 (0.000-0.034) ng/mL Liver Function 11/29/24 Range/Units 20:58 Total Bilirubin 0.6 (0.2-1.3) mg/dL AST 38 H (14-36) U/L ALT 30 (6-35) U/L Alkaline Phosphatase 347 H (38-126) U/L Albumin 3.7 (3.5-5.1) g/dL Assessment and Plan Assessment and plan (1) Hypertensive urgency: Code(s): I16.0 - Hypertensive urgency Status: Acute (2) Shortness of breath: Code(s): R06.02 - Shortness of breath Status: Acute (3) Bilateral pleural effusion: Code(s): J90 - Pleural effusion, not elsewhere classified Status: Acute Plan A pleasant 44-year-old [place] female with PMH ESRD on dialysis Thursday followed by Dr. Fernandez presents shortness of breath. Denies chest pain, cough, fever. She woke up from a nap with shortness of breath. She last got her dialysis on the day of admission 11/29/2024. Elevated blood pressure in the ER 227/91, improved 176/91 after labetalol 60 mg IV total, hydralazine 20 mg IV x1. Patient given ceftriaxone and azithromycin. Chest x-ray shows small bilateral pleural effusion with bibasilar atelectasis and/or pneumonia. ----- Consult Nephrology, patient may need another round of fluid takeoff. Receive antibiotics for possible pneumonia. Control blood pressure. Hydralazine p.r.n.. 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 Accu-Cheks a.c. HS with low-dose insulin sliding scale and hypoglycemia protocol. Patient wishes to be full code. Renal dialysis diet. Hospitalist MIPS Advance Care Plan I have confirmed that the patient's Advanced Care Plan is present, code status is documented, or surrogate decision maker is listed in patient medical record.: Yes Medication Reconciliation I have utilized all available resources to obtain, update and review the patients current medications (includes all prescriptions, OTC, herbals, cannabis, and nutritional supplements).: Yes
--- NOTE | 2024-11-30 01:46 | ADMGEN ---
This patient, Bakari Smith, was admitted to IMU Room 211-01. Patient/family oriented to hospital policies and general routines including ID bracelet, bed and alarms, visiting hours, pain management, procedures, bathroom and other care routines, personal items, smoking policy, room service/diet, and visiting hours. Information on how to activate the Rapid Response Team has been discussed. Patient/Family are encouraged to report perceived risks to care and to ask questions if they do not understand what they are told or what they should do.
--- NOTE | 2024-11-30 02:21 | PCRCNOTE ---
ABG delayed due to unavailability
[2024-11-30 04:04] LABS: MRSA (PCR) NOT DETECTED (NOT DETECTE)
[2024-11-30 04:20] LABS: Hematocrit 29.4 % (37.0-47.0); Hemoglobin 8.9 g/dL (12.0-15.0); Mean Corpuscular HGB Conc 30.3 g/dl (32-36); Mean Corpuscular Hemoglobin 24.9 pg (26-34); Mean Corpuscular Volume 82.4 fl (80-100); Platelet Count Result 182 k/mm3 (150-375); Red Blood Count 3.57 M/mm3 (4.2-5.4); White Blood Count 9.4 K/mm3 (4.5-10.0)
[2024-11-30 04:51] LABS: Anion Gap 7 mmol/L (4-12); Blood Urea Nitrogen 29 mg/dL (7-17); Calcium 9.6 mg/dL (8.4-10.2); Carbon Dioxide 27 mmol/L (22-30); Chloride 101 mmol/L (98-107); Estimated CRCL calculation 10 ml/min; Estimated Glomerular Filt Rate 7; Glucose 164 mg/dL (65-110); Magnesium 2.1 mg/dL (1.6-2.3); Potassium 5.3 mmol/L (3.4-5.0); Sodium 135 mmol/L (137-145)
[2024-11-30] MEDS: GABAPENTIN 100 MG CAPSULE 200 MG PO ×3 (05:32→22:12)
[2024-11-30] MEDS: SEVELAMER CARBONATE 800 MG TABLET 1600 MG PO ×3 (07:27→16:47)
[2024-11-30] MEDS: LOSARTAN POTASSIUM 100 MG TABLET PO (08:36)
[2024-11-30] MEDS: LABETALOL HCL 100 MG TABLET 200 MG PO (08:37)
[2024-11-30] MEDS: APIXABAN 5 MG TABLET PO ×2 (08:37→20:37)
[2024-11-30] MEDS: INSULIN GLARGINE (*BKC) 100 UNITS/ML 10 UNITS SUB-Q (08:40)
--- NOTE | 2024-11-30 13:10 | P.CONNP_ITS ---
Assessment and Plan Assessment and plan (1) End stage renal disease: Code(s): N18.6 - End stage renal disease Status: Chronic Assessment and Plan: * HD tomorrow * continue //Thursday dialysis schedule while hospitalized * follow trend of electrolytes, volume status, and clearance (2) Shortness of breath: Code(s): R06.02 - Shortness of breath Status: Acute Assessment and Plan: * etiology not clear * possibilities include: * pneumonia (?) * pleural effusions (but small by CXR) * relative anemia * cardiac issue(?) * other (?) * continue current therapy * fluid removal with dialysis * antibiotics * Epogen with HD * attempt review records from recent hospitalization at [facility] * if persists, consider CT of chest (3) Pneumonia: Code(s): J18.9 - Pneumonia, unspecified organism Status: Acute Assessment and Plan: * suggested by admission CXR, however: * normal WBC * no hypoxia * no productive cough * follow culture data * on antibiotics (4) Anemia: Code(s): D64.9 - Anemia, unspecified Status: Chronic Assessment and Plan: * due to ESRD and recent hospitalization * Epogen with HD * follow trend of H/H (5) Hypertension: Code(s): I10 - Essential (primary) hypertension Status: Chronic Assessment and Plan: * quite elevated on presentation * resume home medications * increase labetalol to 400mg bid * further adjustments may be needed * PRN IV hydralazine * follow trend of hemodynamics (6) Diabetes: Code(s): E11.9 - Type 2 diabetes mellitus without complications Status: Chronic Assessment and Plan: * follow accu-cheks * glycemic control per hospitalist I will continue to follow the patient with you while she remains hospitalized and make further recommendations as deemed necessary. Thank you for allowing me to participate in the care of this patient. L History of Present Illness Reason for Consult Consult date: 11/30/24 Reason for consult: end stage renal disease Chief Complaint Chief complaint: Hypertension, shortness of breath History of Present Illness Narrative: The patient is a 44-year-old female with a past medical history as outlined below who presented to [facility] with complaints of shortness of breath. The patient completed her dialysis treatment earlier on the day of admission and tolerated this intervention reasonably well. When she got back home, she laid down to take a nap but then suddenly woke up feeling short of breath. On further questioning, she reports that she had difficulty taking a deep breath which made feel uncomfortable with the sensation of feeling short of breath. As she was unclear will was precipitating this symptom, she took her blood pressure in it was noted that was quite elevated in the 200 systolic range when usually she runs in the 150s to 160 systolic at baseline. She gave no history with regard to fevers, chills, nausea, vomiting, wheezing, productive cough, postnasal drip, dizziness, lightheadedness, or palpitations. As his symptoms continue to persist, she came to the ER for further assessment. Workup and evaluation emergency room demonstrated the patient to be quite hypertensive in the 240 systolic range but otherwise afebrile and without evidence of hypoxia. Routine blood work demonstrated white blood cell count of 8.7, hemoglobin 8.9, platelet count 169, sodium 135, potassium 4.8, bicarb 30, BUN 27, creatinine 6.16, glucose 142, calcium 9.6, lactic acid 0.8, magnesium 2.1, normal LFTs with the exception of an elevated alkaline phosphatase of 347, negative troponins, proBNP greater than 30,000, and an albumin of 3.7. Viral testing for influenza, RSV, and COVID were negative. Her ABG showed a pH of 7.489, pCO2 of 36, PO2 of 80.6 on room air. Her chest x-ray showed small bilateral pleural effusions with bibasilar atelectasis and/or pneumonia. Given her constellation symptoms as well as her laboratory/ imaging findings, appropriate cultures were obtained and she was started on antibiotics on the presumption of pneumonia and subsequently admitted to the hospital for further evaluation and therapy. Since her admission, her breathing/ respiratory status appears to be relatively stable but she still has a sensation of uncomfortableness with deep inspiration and associated shortness of breath but does not appear to be in any respiratory distress. Renal consultation was requested due to her end-stage renal disease. The patient is well known to me as I take care of her outpatient dialysis needs. She normally dialyzes on a Thursday, , Thursday dialysis schedule under my care at [facility]. She was previously on peritoneal dialysis but due to a Staph epidermis peritonitis and associated bacteremia, her PD catheter was removed as this was thought to be the potential source and she is currently on backup hemodialysis with the tentative plan to return back to peritoneal dialysis at a later date. From a dialysis perspective, she has been doing reasonably well and has been compliant with her dialysis treatments. Her blood pressure can be somewhat erroneously elevated at times although this has been a longstanding issue even prior to initiation of renal replacement therapy/dialysis. Currently, at the time my evaluation, the patient does not appear to be in any acute distress. shortness of breath patient reports he is a Thursday dialysis patient and reports that she went to dialysis today completed her oral run took a nap this evening and then woke up feeling short of breath the patient states that her blood pressure was significantly elevated reports she normally runs in the 160s and today her blood pressure was in the 200s patient reports she has can not get a good deep breath denies wheezing denies fever denies cough Review of Systems 2 Review of Systems: As per HPI. [facility] Past Medical History Medical History Insulin dependent type 2 diabetes mellitus End-stage renal disease on peritoneal dialysis Obesity (BMI 30-39.9) Erythropoietin deficiency anemia Gastroesophageal reflux Arthritis Right wrist left knee Irritable bowel syndrome Diverticulitis Pneumonia Peripheral neuropathy Hypertension Surgical History Surgical History History of section x3 History of dilation and curettage History of appendectomy History of cholecystectomy History of salpingo-oophorectomy History of tubal ligation Family History Family History (Updated 11/30/24 @ 01:57 by Brenda Gay RN) Mother Diabetes mellitus Breast cancer Sibling History of blood clots due to blood clot Heart disease Sister has something wrong with her heart Father Prostate carcinoma Hypertension Daughter , 06/08/2021, 19yo Pulmonary embolism due to PE Social History Social History Social History: Surrogate medical decision maker: Robert Smith, daughter. Code status: Full code. Smoking status: Never smoker Second hand tobacco smoke exposure: Yes Alcohol intake: never Substance use: current Substance use type: marijuana Do You Feel Safe in your Home?: Yes Lack of Transportation: No Lack of Food: Often True Current Housing: I Have Housing Concerned About Future Housing: No Difficulty Paying Gas/Electric Bills: No Difficulty Paying for Meds: No Currently Unemployed: No Education: Grade School Difficulty w/ Childcare or Family Care: No Living arrangements: with family Additional living arrangements comments: Lives with family in [place]. 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 Spiritual care concerns: No Agree to blood products: Yes Meds Home Medications and Allergies Home Medications ?Medication ?Instructions ?Recorded ?Confirmed ?Type amlodipine 10 mg tablet 10 mg PO DAILY #90 tabs 05/2411/30/24 Rx pen needle, diabetic 32 gauge x #50 ea 08/01/24 Rx 5/32 (Easy Comfort Pen [place]) doxazosin 2 mg tablet (Cardura) 2 mg PO QHS #30 tabs 0 09/28/24 11/30/24 Rx losartan 100 mg tablet 100 mg PO DAILY #30 tabs 08/1711/30/24 Rx apixaban 5 mg tablet (Eliquis) 5 mg PO BID #60 tabs 11/30/24 Rx insulin degludec 100 unit/mL (3 10 unit (0.1 mL) subcu t DAILY #15 11/02/24 11/30/24 Rx mL) subcutaneous pen mL labetalol 200 mg tablet 200 mg PO BID #180 tabs 10/2411/30/24 Rx lactulose 10 gram/15 mL oral 15 ml PO QHS PRN constipa tion 11/02/24 11/30/24 History solution sevelamer HCl 800 mg tablet 1,600 mg PO TID 11/02/24 1 History blood-glucose sensor (FreeStyle #2 ea 11/03/24 5 Rx Alexandro 3 Plus Sensor device) acetaminophen 500 mg tablet 1,000 mg (2 x 500 mg) PO T ID PRN 11/04/24 11/30/24 Rx tessie #180 tabs gabapentin 100 mg capsule 200 mg PO TID 11/30/2411/30 History Allergies Allergy/AdvReac Type Severity Reaction Status Date / Time metronidazole Allergy Intermediate Rash Verified 11/30/24 03:11 omeprazole Allergy Intermediate Rash Verified 11/30/24 03:11 adhesive tape Allergy Mild Itching Verified 11/30/24 03:11 ibuprofen Allergy Unknown Verified 11/30/24 03:11 Vital Signs Vital Signs Temp Pulse Resp BP Pulse Ox O2 Del Method O2 Flow Rate 11/30/24 12:00 98 F 78 22 H 177/85 H 98 11/30/24 10:15 181/91 H 11/30/24 10:00 88 11/30/24 08:53 93 100 Room Air 11/30/24 08:37 87 11/30/24 08:00 85 11/30/24 08:00 97.6 F 84 16 183/84 H 100 11/30/24 06:45 177/79 H 11/30/24 06:00 85 11/30/24 05:00 202/81 H 11/30/24 04:21 98.2 F 83 18 197/86 H 95 11/30/24 04:00 86 11/30/24 04:00 95 Nasal Cannula 2 11/30/24 03:32 97.8 F 78 16 200/86 H 99 11/30/24 03:00 100 Nasal Cannula 2 11/30/24 02:17 100 Nasal Cannula 2 11/30/24 02:17 214/91 H 11/30/24 02:00 82 11/30/24 00:46 83 22 H 176/91 H 11/30/24 00:45 23 H 100 11/30/24 00:31 85 24 H 171/81 H 11/30/24 00:30 87 26 H 11/30/24 00:21 87 18 185/86 H 98 11/30/24 00:06 80 19 216/96 H 100 11/29/24 23:30 83 24 H 227/91 H 100 11/29/24 22:09 100 Room Air 11/29/24 21:30 81 15 246/107 H 100 11/29/24 21:00 Room Air 11/29/24 20:50 98.1 F 77 18 244/101 H 100 Room Air Exam 2 Narrative: GENERAL APPEARANCE: well developed well nourished female in no acute distress HEENT: normocephalic, atraumatic, normal conjunctiva and sclera, nares patient NECK: no lymphadenopathy, thyromegaly, or JVD MOUTH: normal lips, teeth, and gums CARDIOVASCULAR: RRR, normal S1 and S2, no rub RESPIRATORY: decreased at bases ABDOMEN: soft, nontender, nondistended, positive bowel sounds present EXTREMITIES: no evidence of cyanosis, clubbing, trace edema NEUROLOGICAL: alert and oriented x 3; CN II - XII intact bilaterally; no focal deficits noted Results Lab Results 12/01/24 06:02 12/01/24 06:02 Lab results: Most recent lab results ABG pH 7.489 (7.350-7.450) H 11/29/24 21:50 ABG pCO2 36.3 mmHg (35.0-45.0) 11/29/24 21:50 ABG pO2 80.6 mmHg (80.0-100.0) 11/29/24 21:50 ABG HCO3 27.0 mEq/l (22.0-26.0) H 11/29/24 21:50 ABG O2 Saturation 96.7 % (95.0-100.0) 11/29/24 21:50 Calcium 9.6 mg/dL (8.4-10.2) 11/30/24 04:04 Magnesium 2.1 mg/dL (1.6-2.3) 11/30/24 04:04
--- NOTE | 2024-11-30 18:45 | PM.IMPN ---
Progress Note: A&P Assessment and Plan (1) Hypertensive urgency: Code(s): I16.0 - Hypertensive urgency Status: Acute (2) Shortness of breath: Code(s): R06.02 - Shortness of breath Status: Acute (3) Bilateral pleural effusion: Code(s): J90 - Pleural effusion, not elsewhere classified Status: Acute Plan Currently patient blood pressure in trending down, patient stats feels better compared to when she arrived, patient will be seen by her sociology instructor and patient will have dialysis as scheduled. A pleasant 44-year-old [place]ron[place] female with PMH ESRD on dialysis Thursday followed by Dr. Fernandez presents shortness of breath. Denies chest pain, cough, fever. She woke up from a nap with shortness of breath. She last got her dialysis on the day of admission 11/29/2024. Elevated blood pressure in the ER 227/91, improved 176/91 after labetalol 60 mg IV total, hydralazine 20 mg IV x1. Patient given ceftriaxone and azithromycin. Chest x-ray shows small bilateral pleural effusion with bibasilar atelectasis and/or pneumonia. ----- Consult Nephrology, patient may need another round of fluid takeoff. Receive antibiotics for possible pneumonia. Control blood pressure. Hydralazine p.r.n.. CREATIVE PERFUMER medications will be restarted as appropriate. History of DVT, restart CREATIVE PERFUMER Eliquis. Accu-Cheks a.c. HS with low-dose insulin sliding scale and hypoglycemia protocol. Patient wishes to be full code. Renal dialysis diet. Subjective Date/time seen: 11/30/24 18:45 Interval history: Shortness of breath H&P-Narrative: A pleasant 44-year-old [place]ron[place] female with PMH ESRD on dialysis Thursday followed by Dr. Fernandez presents shortness of breath. Denies chest pain, cough, fever. She woke up from a nap with shortness of breath. She last got her dialysis on the day of admission 11/29/2024. Elevated blood pressure in the ER 227/91, improved 176/91 after labetalol 60 mg IV total, hydralazine 20 mg IV x1. Patient given ceftriaxone and azithromycin. Chest x-ray shows small bilateral pleural effusion with bibasilar atelectasis and/or pneumonia. Reviw H&P Currently patient blood pressure in trending down, patient stats feels better compared to when she arrived, patient will be seen by her sociology instructor and patient will have dialysis as scheduled. Review of Systems Review of Systems: All systems reviewed & are unremarkable except as noted in HPI and below (Subjective) Objective Data Vital Signs Vital Signs: Vital Signs - 24 hr 11/29/24 20:50 11/29/24 21:00 11/29/24 21:30 Temperature 36.7 C Pulse Rate 77 81 Respiratory Rate 18 15 Blood Pressure 244/101 H 246/107 H Pulse Oximetry 100 100 Oxygen Delivery Room Air Room Air Oxygen Flow Rate Fraction of Inspired Oxygen 11/29/24 22:09 11/29/24 23:30 11/30/24 00:06 Temperature Pulse Rate 83 80 Respiratory Rate 24 H 19 Blood Pressure 227/91 H 216/96 H Pulse Oximetry 100 100 100 Oxygen Delivery Room Air Oxygen Flow Rate Fraction of Inspired Oxygen 21 11/30/24 00:21 11/30/24 00:30 11/30/24 00:31 Temperature Pulse Rate 87 87 85 Respiratory Rate 18 26 H 24 H Blood Pressure 185/86 H 171/81 H Pulse Oximetry 98 Oxygen Delivery Oxygen Flow Rate Fraction of Inspired Oxygen 11/30/24 00:45 11/30/24 00:46 11/30/24 02:00 Temperature Pulse Rate 83 82 Respiratory Rate 23 H 22 H Blood Pressure 176/91 H Pulse Oximetry 100 Oxygen Delivery Oxygen Flow Rate Fraction of Inspired Oxygen 11/30/24 02:17 11/30/24 02:17 11/30/24 03:00 Temperature Pulse Rate Respiratory Rate Blood Pressure 214/91 H Pulse Oximetry 100 100 Oxygen Delivery Nasal Cannula Nasal Cannula Oxygen Flow Rate 2 2 Fraction of Inspired Oxygen 11/30/24 03:32 11/30/24 04:00 11/30/24 04:00 Temperature 36.6 C Pulse Rate 78 86 Respiratory Rate 16 Blood Pressure 200/86 H Pulse Oximetry 99 95 Oxygen Delivery Nasal Cannula Oxygen Flow Rate 2 Fraction of Inspired Oxygen 11/30/24 04:21 11/30/24 05:00 11/30/24 06:00 Temperature 36.8 C Pulse Rate 83 85 Respiratory Rate 18 Blood Pressure 197/86 H 202/81 H Pulse Oximetry 95 Oxygen Delivery Oxygen Flow Rate Fraction of Inspired Oxygen 11/30/24 06:45 11/30/24 08:00 11/30/24 08:00 Temperature 36.4 C Pulse Rate 84 85 Respiratory Rate 16 Blood Pressure 177/79 H 183/84 H Pulse Oximetry 100 Oxygen Delivery Oxygen Flow Rate Fraction of Inspired Oxygen 11/30/24 08:37 11/30/24 08:53 11/30/24 10:00 Temperature Pulse Rate 87 93 88 Respiratory Rate Blood Pressure Pulse Oximetry 100 Oxygen Delivery Room Air Oxygen Flow Rate Fraction of Inspired Oxygen 11/30/24 10:15 11/30/24 12:00 11/30/24 12:00 Temperature 36.6 C Pulse Rate 78 79 Respiratory Rate 22 H Blood Pressure 181/91 H 177/85 H Pulse Oximetry 98 Oxygen Delivery Oxygen Flow Rate Fraction of Inspired Oxygen 11/30/24 16:00 11/30/24 16:00 11/30/24 18:31 Temperature 36.9 C Pulse Rate 80 80 Respiratory Rate 16 Blood Pressure 187/81 H 199/76 H Pulse Oximetry 100 Oxygen Delivery Oxygen Flow Rate Fraction of Inspired Oxygen Intake/Output Intake/Output: Intake & Output 11/27/24 11/28/24 11/29/24 11/30/24 23:59 23:59 23:59 23:59 Intake Total 2400 Balance 2400 Meds/Results Medications: Active Medications Generic Name Dose Route Start Last Admin Trade Name Freq PRN Reason Stop Dose Admin Amlodipine Besylate 10 mg 11/30/24 09:00 11/30/24 08:37 Amlodipine Besylate 10 Mg Tablet PO 10 mg DAILY CHAYO Administration Apixaban 5 mg 11/30/24 09:00 11/30/24 08:37 Apixaban 5 Mg Tablet PO 5 mg Q12HR CHAYO Administration Dextrose 12.5 gm 11/30/24 01:26 Dextrose 50% 25 Gm/50 Ml Syringe IV PUSH PRN PRN Hypoglycemia Protocol Doxazosin Mesylate 2 mg 11/30/24 21:00 Doxazosin Mesylate 2 Mg Tablet PO QHS CHAYO Gabapentin 200 mg 11/30/24 06:00 11/30/24 13:52 Gabapentin 100 Mg Capsule PO 200 mg Q8HR CHAYO Administration Glucose 15 gm 11/30/24 01:26 Glucose Oral Gel 15 Gm Of Glucse In 37.5 Gm Tube PO PRN PRN Hypoglycemia Protocol Hydralazine HCl 10 mg 11/30/24 00:28 11/30/24 18:33 Hydralazine Hcl 20 Mg/Ml Vial IV PUSH 10 mg Q8H PRN Administration SBP >180 Ceftriaxone Sodium 1 gm/ 50 mls @ 100 mls/hr 11/30/24 22:00 Sodium Chloride IVPB Q24H CHAYO Azithromycin 500 mg/ Sodium 250 mls @ 250 mls/hr 11/30/24 23:00 Chloride IVPB 12/03/24 23:59 Q24H CHAYO Dextrose 1,000 mls @ 100 mls/hr 11/30/24 01:26 Dextrose 5% 1,000 Ml IVPB PRN PRN Hypoglycemia Protocol Insulin Aspart 2 - 5 units 11/30/24 08:00 11/30/24 16:46 Insulin Aspart (*Bkc) 100 Units/Ml SUB-Q Not Given TIDWM [facility] Protocol Insulin Aspart 1 - 2 units 11/30/24 21:00 Insulin Aspart (*Bkc) 100 Units/Ml SUB-Q HS [facility] Protocol Insulin Glargine 10 units 11/30/24 09:00 11/30/24 08:40 Insulin Glargine (*Bkc) 100 Units/Ml SUB-Q 10 units DAILY CHAYO Administration Labetalol HCl 400 mg 11/30/24 21:00 Labetalol Hcl 100 Mg Tablet PO Q12HR CHAYO Losartan Potassium 100 mg 11/30/24 09:00 11/30/24 08:36 Losartan Potassium 100 Mg Tablet PO 100 mg DAILY CHAYO Administration Ropinirole HCl 0.125 mg 11/30/24 21:00 Ropinirole Hcl 0.125 Mg Tablet PO HS [facility] Sevelamer Carbonate 1,600 mg 11/30/24 08:00 11/30/24 16:47 Sevelamer Carbonate 800 Mg Tablet PO 1,600 mg TIDWM CHAYO Administration Radiology Results: ITS Impressions Chest X-Ray 11/29/24 21:10 IMPRESSION: 1. Small bilateral pleural effusions with bibasilar atelectasis and/or pneumonia. Labs Labs: Laboratory Results - last 24 hr 11/29/24 11/29/24 11/29/24 20:58 21:23 21:50 WBC 8.7 RBC 3.58 L Hgb 8.9 L Hct 29.3 L MCV 81.8 MCH 24.9 L MCHC 30.4 L RDW 18.5 H Plt Count 169 MPV 8.9 Immature Gran % (Auto) 0.2 Neut % (Auto) 50.7 Lymph % (Auto) 34.9 [place] % (Auto) 6.7 Eos % (Auto) 6.6 H Baso % (Auto) 0.9 Lymph # (Auto) 3.03 [place] # (Auto) 0.6 Eos # (Auto) 0.6 H Baso # (Auto) 0.1 Abs Immat Gran (auto) 0.02 Absolute Neuts (auto) 4.4 Absolute Nucleated RBC 0.000 Nucleated RBC % 0.0 Puncture Site Left radial ABG pH 7.489 H ABG pCO2 36.3 ABG pO2 80.6 ABG PO2/FiO2 Ratio 3.84 ABG HCO3 27.0 H ABG O2 Saturation 96.7 ABG O2 Content 13.2 L ABG Base Excess 3.5 A-a Gradient 25.7 Oxyhemoglobin 95.0 Total Hemoglobin 9.8 L O2 Delivery Device Room air O2 Liters/Min Not Reportable FiO2 21 Sodium 135 L Potassium 4.8 Chloride 99 Carbon Dioxide 30 Anion Gap 6 BUN 27 H D Creatinine 6.16 H Estim Creat Clear Calc 11 Estimated GFR 7 L Glucose 142 H POC Capillary Glucose Lactic Acid Calcium 9.6 Magnesium 2.1 Total Bilirubin 0.6 AST 38 H ALT 30 Alkaline Phosphatase 347 H Troponin I < 0.012 NT-Pro-B Natriuret Pep > 87449 H Total Protein 8.0 Albumin 3.7 Procalcitonin 0.7 Nasal MRSA (PCR) Influenza A (RT-PCR) Negative Influenza B (RT-PCR) Negative RSV (RT-PCR) Negative SARS-CoV-2 RNA (RT-PCR) Negative 11/29/24 11/30/24 11/30/24 21:53 00:11 02:45 WBC RBC Hgb Hct MCV MCH MCHC RDW Plt Count MPV Immature Gran % (Auto) Neut % (Auto) Lymph % (Auto) [place] % (Auto) Eos % (Auto) Baso % (Auto) Lymph # (Auto) [place] # (Auto) Eos # (Auto) Baso # (Auto) Abs Immat Gran (auto) Absolute Neuts (auto) Absolute Nucleated RBC Nucleated RBC % Puncture Site ABG pH ABG pCO2 ABG pO2 ABG PO2/FiO2 Ratio ABG HCO3 ABG O2 Saturation ABG O2 Content ABG Base Excess A-a Gradient Oxyhemoglobin Total Hemoglobin O2 Delivery Device O2 Liters/Min FiO2 Sodium Potassium Chloride Carbon Dioxide Anion Gap BUN Creatinine Estim Creat Clear Calc Estimated GFR Glucose POC Capillary Glucose 162 H Lactic Acid 0.8 Calcium Magnesium Total Bilirubin AST ALT Alkaline Phosphatase Troponin I < 0.012 NT-Pro-B Natriuret Pep Total Protein Albumin Procalcitonin Nasal MRSA (PCR) Influenza A (RT-PCR) Influenza B (RT-PCR) RSV (RT-PCR) SARS-CoV-2 RNA (RT-PCR) 11/30/24 11/30/24 11/30/24 02:48 04:04 07:25 WBC 9.4 RBC 3.57 L Hgb 8.9 L Hct 29.4 L MCV 82.4 MCH 24.9 L MCHC 30.3 L RDW 18.5 H Plt Count 182 MPV 10.0 Immature Gran % (Auto) Neut % (Auto) Lymph % (Auto) [place] % (Auto) Eos % (Auto) Baso % (Auto) Lymph # (Auto) [place] # (Auto) Eos # (Auto) Baso # (Auto) Abs Immat Gran (auto) Absolute Neuts (auto) Absolute Nucleated RBC Nucleated RBC % Puncture Site ABG pH ABG pCO2 ABG pO2 ABG PO2/FiO2 Ratio ABG HCO3 ABG O2 Saturation ABG O2 Content ABG Base Excess A-a Gradient Oxyhemoglobin Total Hemoglobin O2 Delivery Device O2 Liters/Min FiO2 Sodium 135 L Potassium 5.3 H Chloride 101 Carbon Dioxide 27 Anion Gap 7 BUN 29 H Creatinine 6.54 H Estim Creat Clear Calc 10 Estimated GFR 7 L Glucose 164 H POC Capillary Glucose 145 H Lactic Acid Calcium 9.6 Magnesium 2.1 Total Bilirubin AST ALT Alkaline Phosphatase Troponin I NT-Pro-B Natriuret Pep Total Protein Albumin Procalcitonin Nasal MRSA (PCR) Not detected Influenza A (RT-PCR) Influenza B (RT-PCR) RSV (RT-PCR) SARS-CoV-2 RNA (RT-PCR) 11/30/24 11/30/24 11:28 16:39 WBC RBC Hgb Hct MCV MCH MCHC RDW Plt Count MPV Immature Gran % (Auto) Neut % (Auto) Lymph % (Auto) [place] % (Auto) Eos % (Auto) Baso % (Auto) Lymph # (Auto) [place] # (Auto) Eos # (Auto) Baso # (Auto) Abs Immat Gran (auto) Absolute Neuts (auto) Absolute Nucleated RBC Nucleated RBC % Puncture Site ABG pH ABG pCO2 ABG pO2 ABG PO2/FiO2 Ratio ABG HCO3 ABG O2 Saturation ABG O2 Content ABG Base Excess A-a Gradient Oxyhemoglobin Total Hemoglobin O2 Delivery Device O2 Liters/Min FiO2 Sodium Potassium Chloride Carbon Dioxide Anion Gap BUN Creatinine Estim Creat Clear Calc Estimated GFR Glucose POC Capillary Glucose 178 H 103 Lactic Acid Calcium Magnesium Total Bilirubin AST ALT Alkaline Phosphatase Troponin I NT-Pro-B Natriuret Pep Total Protein Albumin Procalcitonin Nasal MRSA (PCR) Influenza A (RT-PCR) Influenza B (RT-PCR) RSV (RT-PCR) SARS-CoV-2 RNA (RT-PCR)
[2024-11-30] MEDS: LABETALOL HCL 100 MG TABLET 400 MG PO (20:37)
[2024-11-30] MEDS: DOXAZOSIN MESYLATE 2 MG TABLET PO (20:37)
[2024-12-01] VITALS (28 sets, daily range): BP systolic 148–191; BP diastolic 75–97; PULSE 73–91; RESP 16–18; TEMP 36.1–37; O2SAT 98–100
[2024-12-01] MEDS: ACETAMINOPHEN 325 MG TABLET 650 MG PO ×3 (01:54→20:54)
[2024-12-01 06:09] LABS: Hematocrit 28.6 % (37.0-47.0); Hemoglobin 8.6 g/dL (12.0-15.0); Immature Granulocyte Percent A 0.5 % (0-0.5); Lymphocytes Absolute Auto 3.18 K/mm3 (0.9-3.2); Mean Corpuscular HGB Conc 30.1 g/dl (32-36); Mean Corpuscular Hemoglobin 25.1 pg (26-34); Mean Corpuscular Volume 83.4 fl (80-100); Nucleated Red Blood Cells Absolute Auto 0.000 K/mm3 (0.0-0.012); Nucleated Red Blood Cells Perc 0.0 % (0.0-0.2); Platelet Count Result 188 k/mm3 (150-375); Red Blood Count 3.43 M/mm3 (4.2-5.4); White Blood Count 8.4 K/mm3 (4.5-10.0)
[2024-12-01 06:35] LABS: Albumin Level 3.4 g/dL (3.5-5.1); Anion Gap 7 mmol/L (4-12); Blood Urea Nitrogen 35 mg/dL (7-17); Calcium 9.6 mg/dL (8.4-10.2); Carbon Dioxide 28 mmol/L (22-30); Chloride 101 mmol/L (98-107); Estimated CRCL calculation 8 ml/min; Estimated Glomerular Filt Rate 5; Glucose 91 mg/dL (65-110); Potassium 5.0 mmol/L (3.4-5.0); Sodium 136 mmol/L (137-145)
[2024-12-01 07:01] LABS: Hepatitis B Surface Antigen Negative (Negative)
[2024-12-01 07:20] LABS: Hepatitis B Surface Anti Res Positive
[2024-12-01] MEDS: SEVELAMER CARBONATE 800 MG TABLET 1600 MG PO ×3 (07:36→17:07)
[2024-12-01] MEDS: LABETALOL HCL 100 MG TABLET 400 MG PO ×2 (07:37→20:55)
[2024-12-01] MEDS: LOSARTAN POTASSIUM 100 MG TABLET PO (07:37)
[2024-12-01] MEDS: APIXABAN 5 MG TABLET PO ×2 (07:37→20:55)
[2024-12-01] MEDS: INSULIN GLARGINE (*BKC) 100 UNITS/ML 10 UNITS SUB-Q (09:59)
[2024-12-01] MEDS: INSULIN ASPART (*BKC) 100 UNITS/ML SUB-Q (12:33)
--- NOTE | 2024-12-01 15:21 | P.PNNP_ITS ---
Progress Note: A&P Assessment and Plan (1) End stage renal disease: Code(s): N18.6 - End stage renal disease Status: Chronic Assessment and Plan: * HD today * continue //Thursday dialysis schedule while hospitalized * follow trend of electrolytes, volume status, and clearance (2) Shortness of breath: Code(s): R06.02 - Shortness of breath Status: Acute Assessment and Plan: * etiology not clear * possibilities include: * pneumonia (?) * pleural effusions (but small by CXR) * relative anemia * cardiac issue(?) * other (?) * continue current therapy * fluid removal with dialysis * antibiotics * Epogen with HD * attempt review records from recent hospitalization at [facility] * if persists, consider CT of chest * less likely a PE since already on Eliquis as an outpatinet... (3) Pneumonia: Code(s): J18.9 - Pneumonia, unspecified organism Status: Acute Assessment and Plan: * suggested by admission CXR, however: * normal WBC * no hypoxia * no productive cough * follow culture data * on antibiotics (4) Anemia: Code(s): D64.9 - Anemia, unspecified Status: Chronic Assessment and Plan: * due to ESRD and recent hospitalization * Epogen with HD * follow trend of H/H (5) Hypertension: Code(s): I10 - Essential (primary) hypertension Status: Chronic Assessment and Plan: * quite elevated on presentation * resume home medications * increase labetalol to 400mg bid * further adjustments may be needed * PRN IV hydralazine * follow trend of hemodynamics (6) Diabetes: Code(s): E11.9 - Type 2 diabetes mellitus without complications Status: Chronic Assessment and Plan: * follow accu-cheks * glycemic control per hospitalist Will continue to follow. L Subjective Date/time seen: 12/01/24 15:21 Interval history: Follow-up for end stage renal disease on hemodialysis. Tolerating dialysis treatment without any issue or problems (seen on HD at 3:10pm); no other acute issues or problems voiced at the time of my visit; no events overnight or earlier today Exam 2 Narrative: General: WD/WN female in NAD Heart: normal S1 and S2; no rub Lungs: clear to auscultation Abdomen: soft, nontender, nondistended, positive bowel sounds Extremities: no cyanosis or clubbing; no edema Skin: warm and dry Objective Data Vital Signs Vital Signs: Vital Signs Temp Pulse Resp BP Pulse Ox O2 Del Method O2 Flow Rate 12/01/24 15:15 74 166/85 H 12/01/24 14:43 78 167/91 H 12/01/24 14:35 97.0 F L 75 16 173/77 H 99 12/01/24 12:00 83 12/01/24 10:23 169/79 H 12/01/24 08:00 91 12/01/24 08:00 98.6 F 78 16 186/81 H 100 12/01/24 07:50 100 Room Air 12/01/24 05:33 161/75 H 12/01/24 04:47 191/81 H 12/01/24 04:09 98.2 F 80 18 189/93 H 100 12/01/24 04:00 77 12/01/24 00:00 80 11/30/24 23:26 98.5 F 75 18 180/81 H 100 11/30/24 22:27 157/81 H 11/30/24 21:42 214/94 H 11/30/24 20:37 89 11/30/24 20:01 98.3 F 84 14 199/96 H 100 11/30/24 20:00 89 11/30/24 20:00 100 Nasal Cannula 2 11/30/24 18:31 199/76 H Intake/Output Intake/Output: Intake & Output 11/28/24 11/29/24 11/30/24 12/01/24 23:59 23:59 23:59 23:59 Intake Total 2700 1120 Balance 2700 1120 Meds/Results Medications: Active Medications Generic Name Dose Route Start Last Admin Trade Name Freq PRN Reason Stop Dose Admin Acetaminophen 650 mg 12/01/24 01:47 12/01/24 11:45 Acetaminophen 325 Mg Tablet PO 650 mg Q6H PRN Administration Pain Amlodipine Besylate 10 mg 11/30/24 09:00 12/01/24 07:37 Amlodipine Besylate 10 Mg Tablet PO 10 mg DAILY CHAYO Administration Apixaban 5 mg 11/30/24 09:00 12/01/24 07:37 Apixaban 5 Mg Tablet PO 5 mg Q12HR CHAYO Administration Calamine 1 applic 12/01/24 15:31 Calamine Lotion 120 Ml Bottle TOPICAL QAM PRN Itching Dextrose 12.5 gm 11/30/24 01:26 Dextrose 50% 25 Gm/50 Ml Syringe IV PUSH PRN PRN Hypoglycemia Protocol Doxazosin Mesylate 2 mg 11/30/24 21:00 11/30/24 20:37 Doxazosin Mesylate 2 Mg Tablet PO 2 mg QHS CHAYO Administration Epoetin Srinivas-epbx 10,000 units 12/01/24 18:00 12/01/24 16:11 Epoetin Srinivas-Epbx 10,000 Units/Ml Vial IV PUSH 12/01/24 18:01 10,000 units ONCE ONE Administration Gabapentin 200 mg 11/30/24 06:00 12/01/24 14:40 Gabapentin 100 Mg Capsule PO Not Given Q8HR CHAYO Glucose 15 gm 11/30/24 01:26 Glucose Oral Gel 15 Gm Of Glucse In 37.5 Gm Tube PO PRN PRN Hypoglycemia Protocol Hydralazine HCl 10 mg 11/30/24 00:28 12/01/24 03:59 Hydralazine Hcl 20 Mg/Ml Vial IV PUSH 10 mg Q8H PRN Administration SBP >180 Ceftriaxone Sodium 1 gm/ 50 mls @ 100 mls/hr 11/30/24 22:00 11/30/24 22:41 Sodium Chloride IVPB Infused Q24H CHAYO Infusion Azithromycin 500 mg/ Sodium 250 mls @ 250 mls/hr 11/30/24 23:00 11/30/24 23:12 Chloride IVPB 12/03/24 23:59 Infused Q24H CHAYO Infusion Dextrose 1,000 mls @ 100 mls/hr 11/30/24 01:26 Dextrose 5% 1,000 Ml IVPB PRN PRN Hypoglycemia Protocol Albumin Human 50 mls @ 999 mls/hr 12/01/24 05:45 Albutein IVPB 12/31/24 05:44 Q10M PRN HYPOTENSION Insulin Aspart 2 - 5 units 11/30/24 08:00 12/01/24 12:33 Insulin Aspart (*Bkc) 100 Units/Ml SUB-Q 3 units TIDWM CHAYO Administration Protocol Insulin Aspart 1 - 2 units 11/30/24 21:00 11/30/24 20:17 Insulin Aspart (*Bkc) 100 Units/Ml SUB-Q Not Given HS CHAYO Protocol Insulin Glargine 10 units 11/30/24 09:00 12/01/24 09:59 Insulin Glargine (*Bkc) 100 Units/Ml SUB-Q 10 units DAILY CHAYO Administration Labetalol HCl 400 mg 11/30/24 21:00 12/01/24 07:37 Labetalol Hcl 100 Mg Tablet PO 400 mg Q12HR CHAYO Administration Losartan Potassium 100 mg 11/30/24 09:00 12/01/24 07:37 Losartan Potassium 100 Mg Tablet PO 100 mg DAILY CHAYO Administration Ropinirole HCl 0.125 mg 11/30/24 21:00 11/30/24 20:44 Ropinirole Hcl 0.125 Mg Tablet PO Not Given HS CHAYO Sevelamer Carbonate 1,600 mg 11/30/24 08:00 12/01/24 17:07 Sevelamer Carbonate 800 Mg Tablet PO 1,600 mg TIDWM CHAYO Administration Radiology Results: ITS Impressions Chest X-Ray 11/29/24 21:10 IMPRESSION: 1. Small bilateral pleural effusions with bibasilar atelectasis and/or pneumonia. Hand X-Ray 12/01/24 08:35 Impression: No acute fracture or malalignment. Labs Labs: Laboratory Tests 12/01/24 06:02 12/01/24 06:02 Calcium 9.6 Phosphorus 4.8 H Albumin 3.4 L
[2024-12-01] MEDS: SODIUM CHLORIDE 0.9% IV 1,000 ML 999 ML IV CONT (16:10)
[2024-12-01] MEDS: EPOETIN ALFA-EPBX 10,000 UNITS/ML VIAL 10000 UNITS IV PUSH (16:11)
--- NOTE | 2024-12-01 17:45 | PC.NURSE ---
Dialysis nurse called to say that the patients blood sugar is noted to be in the 50s per the dexcom patient is wearing. This RN went to the dialysis room to assess the patient. The patient drank 120mL of apple juice and the dialysis nurse gave the patient crackers. This RN told the dialysis nurse that the blood sugar would need to be rechecked in 15 min. The dialysis nurse called this RN back approximately 15-20 minutes later and stated that her blood sugar was still low in the 60s. This RN went up to check on the patient and check a blood sugar with our accu check machine and the blood sugar was noted to be 103. Patient dinner tray was delivered to the patient. No acute distress noted, the patient remains alert and oriented with no signs of hypoglycemia. The patient was then assigned to room 319. Dialysis nurse notified that the patient would be transferring to room 319 after dialysis and report was given to the nurse on the third floor. Denies further questions.
--- NOTE | 2024-12-01 18:50 | P.PNIM_ITS ---
Progress Note: A&P Assessment and Plan (1) Hypertensive urgency: Code(s): I16.0 - Hypertensive urgency Status: Acute (2) Shortness of breath: Code(s): R06.02 - Shortness of breath Status: Acute (3) Bilateral pleural effusion: Code(s): J90 - Pleural effusion, not elsewhere classified Status: Acute Plan Currently patient blood pressure in trending down, patient stats feels better compared to when she arrived, patient presented with shortness of breath, chest x-ray showing pneumonia patient is being treated with ceftriaxone and zithromax, will monitor, patient is seen by her gear coding machine operator and patient will have dialysis as scheduled today and will plan. A pleasant 44-year-old Martiniquais female with PMH ESRD on dialysis Thursday followed by Dr. Fernandez presents shortness of breath. Denies chest pain, cough, fever. She woke up from a nap with shortness of breath. She last got her dialysis on the day of admission 11/29/2024. Elevated blood pressure in the ER 227/91, improved 176/91 after labetalol 60 mg IV total, hydralazine 20 mg IV x1. Patient given ceftriaxone and azithromycin. Chest x-ray shows small bilateral pleural effusion with bibasilar atelectasis and/or pneumonia. ----- Consult Nephrology, patient may need another round of fluid takeoff. Receive antibiotics for possible pneumonia. Control blood pressure. Hydralazine p.r.n.. ADMISSIONS RECRUITER medications will be restarted as appropriate. History of DVT, restart ADMISSIONS RECRUITER Eliquis. Accu-Cheks a.c. HS with low-dose insulin sliding scale and hypoglycemia protocol. Patient wishes to be full code. Renal dialysis diet. Subjective Date/time seen: 12/01/24 18:50 Interval history: Shortness of breath H&P-Narrative: A pleasant 44-year-old Martiniqu[place] female with PMH ESRD on dialysis Thursday followed by Dr. Fernandez presents shortness of breath. Denies chest pain, cough, fever. She woke up from a nap with shortness of breath. She last got her dialysis on the day of admission 11/29/2024. Elevated blood pressure in the ER 227/91, improved 176/91 after labetalol 60 mg IV total, hydralazine 20 mg IV x1. Patient given ceftriaxone and azithromycin. Chest x-ray shows small bilateral pleural effusion with bibasilar atelectasis and/or pneumonia. Currently patient blood pressure in trending down, patient stats feels better compared to when she arrived, patient presented with shortness of breath, chest x-ray showing pneumonia patient is being treated with ceftriaxone and zithromax, will monitor, patient is seen by her gear coding machine operator and patient will have dialysis as scheduled today and will plan. Review of Systems Review of Systems: All systems reviewed & are unremarkable except as noted in HPI and below (Subjective) Exam Narrative: Patient is comfortable, NAD HEENT: eyes are clear and none icteric LUNGS:CTA HEART: RR S1S2 ABD: BS+, Soft and nontender Lower extremities: no edema SKIN: nonjaundiced Neuro: grossly intact. Objective Data Vital Signs Vital Signs: Vital Signs - 24 hr 11/30/24 20:00 11/30/24 20:00 11/30/24 20:01 Temperature 36.8 C Pulse Rate 89 84 Respiratory Rate 14 Blood Pressure 199/96 H Pulse Oximetry 100 100 Oxygen Delivery Nasal Cannula Oxygen Flow Rate 2 11/30/24 20:37 11/30/24 21:42 11/30/24 22:27 Temperature Pulse Rate 89 Respiratory Rate Blood Pressure 214/94 H 157/81 H Pulse Oximetry Oxygen Delivery Oxygen Flow Rate 11/30/24 23:26 12/01/24 00:00 12/01/24 04:00 Temperature 36.9 C Pulse Rate 75 80 77 Respiratory Rate 18 Blood Pressure 180/81 H Pulse Oximetry 100 Oxygen Delivery Oxygen Flow Rate 12/01/24 04:09 12/01/24 04:47 12/01/24 05:33 Temperature 36.8 C Pulse Rate 80 Respiratory Rate 18 Blood Pressure 189/93 H 191/81 H 161/75 H Pulse Oximetry 100 Oxygen Delivery Oxygen Flow Rate 12/01/24 07:50 12/01/24 08:00 12/01/24 08:00 Temperature 37.0 C Pulse Rate 78 91 Respiratory Rate 16 Blood Pressure 186/81 H Pulse Oximetry 100 100 Oxygen Delivery Room Air Oxygen Flow Rate 12/01/24 10:23 12/01/24 12:00 12/01/24 14:35 Temperature 36.1 C L Pulse Rate 83 75 Respiratory Rate 16 Blood Pressure 169/79 H 173/77 H Pulse Oximetry 99 Oxygen Delivery Oxygen Flow Rate 12/01/24 14:43 12/01/24 15:15 12/01/24 15:30 Temperature Pulse Rate 78 74 73 Respiratory Rate Blood Pressure 167/91 H 166/85 H 177/86 H Pulse Oximetry Oxygen Delivery Oxygen Flow Rate 12/01/24 15:45 12/01/24 16:00 12/01/24 16:15 Temperature Pulse Rate 85 85 81 Respiratory Rate Blood Pressure 169/88 H 175/89 H 159/77 H Pulse Oximetry Oxygen Delivery Oxygen Flow Rate 12/01/24 16:30 12/01/24 16:45 12/01/24 17:00 Temperature Pulse Rate 80 85 81 Respiratory Rate Blood Pressure 148/76 H 150/80 H 174/86 H Pulse Oximetry Oxygen Delivery Oxygen Flow Rate 12/01/24 17:15 12/01/24 17:30 12/01/24 17:48 Temperature Pulse Rate 77 89 85 Respiratory Rate Blood Pressure 174/96 H 178/93 H 176/82 H Pulse Oximetry Oxygen Delivery Oxygen Flow Rate 12/01/24 18:02 12/01/24 18:17 12/01/24 18:28 Temperature 36.7 C Pulse Rate 84 79 75 Respiratory Rate 16 Blood Pressure 177/89 H 174/97 H 188/95 H Pulse Oximetry 98 Oxygen Delivery Oxygen Flow Rate Intake/Output Intake/Output: Intake & Output 11/28/24 11/29/24 11/30/24 12/01/24 23:59 23:59 23:59 23:59 Intake Total 2700 1360 Output Total 3000 Balance 2700 -1640 Meds/Results Medications: Active Medications Generic Name Dose Route Start Last Admin Trade Name Freq PRN Reason Stop Dose Admin Acetaminophen 650 mg 12/01/24 01:47 12/01/24 11:45 Acetaminophen 325 Mg Tablet PO 650 mg Q6H PRN Administration Pain Amlodipine Besylate 10 mg 11/30/24 09:00 12/01/24 07:37 Amlodipine Besylate 10 Mg Tablet PO 10 mg DAILY CHAYO Administration Apixaban 5 mg 11/30/24 09:00 12/01/24 07:37 Apixaban 5 Mg Tablet PO 5 mg Q12HR CHAYO Administration Calamine 1 applic 12/01/24 15:31 Calamine Lotion 120 Ml Bottle TOPICAL QAM PRN Itching Dextrose 12.5 gm 11/30/24 01:26 Dextrose 50% 25 Gm/50 Ml Syringe IV PUSH PRN PRN Hypoglycemia Protocol Doxazosin Mesylate 4 mg 12/01/24 21:00 Doxazosin Mesylate 2 Mg Tablet PO QHS CHAYO Gabapentin 200 mg 11/30/24 06:00 12/01/24 14:40 Gabapentin 100 Mg Capsule PO Not Given Q8HR CHAYO Glucose 15 gm 11/30/24 01:26 Glucose Oral Gel 15 Gm Of Glucse In 37.5 Gm Tube PO PRN PRN Hypoglycemia Protocol Hydralazine HCl 10 mg 11/30/24 00:28 12/01/24 03:59 Hydralazine Hcl 20 Mg/Ml Vial IV PUSH 10 mg Q8H PRN Administration SBP >180 Ceftriaxone Sodium 1 gm/ 50 mls @ 100 mls/hr 11/30/24 22:00 11/30/24 22:41 Sodium Chloride IVPB Infused Q24H CHAYO Infusion Azithromycin 500 mg/ Sodium 250 mls @ 250 mls/hr 11/30/24 23:00 11/30/24 23:12 Chloride IVPB 12/03/24 23:59 Infused Q24H CHAYO Infusion Dextrose 1,000 mls @ 100 mls/hr 11/30/24 01:26 Dextrose 5% 1,000 Ml IVPB PRN PRN Hypoglycemia Protocol Albumin Human 50 mls @ 999 mls/hr 12/01/24 05:45 Albutein IVPB 12/31/24 05:44 Q10M PRN HYPOTENSION Insulin Aspart 2 - 5 units 11/30/24 08:00 12/01/24 18:44 Insulin Aspart (*Bkc) 100 Units/Ml SUB-Q Not Given TIDWM CHAYO Protocol Insulin Aspart 1 - 2 units 11/30/24 21:00 11/30/24 20:17 Insulin Aspart (*Bkc) 100 Units/Ml SUB-Q Not Given HS [facility] Protocol Insulin Glargine 10 units 11/30/24 09:00 12/01/24 09:59 Insulin Glargine (*Bkc) 100 Units/Ml SUB-Q 10 units DAILY CHAYO Administration Labetalol HCl 400 mg 11/30/24 21:00 12/01/24 07:37 Labetalol Hcl 100 Mg Tablet PO 400 mg Q12HR CHAYO Administration Losartan Potassium 100 mg 11/30/24 09:00 12/01/24 07:37 Losartan Potassium 100 Mg Tablet PO 100 mg DAILY CHAYO Administration Ropinirole HCl 0.125 mg 11/30/24 21:00 11/30/24 20:44 Ropinirole Hcl 0.125 Mg Tablet PO Not Given HS CHAYO Sevelamer Carbonate 1,600 mg 11/30/24 08:00 12/01/24 17:07 Sevelamer Carbonate 800 Mg Tablet PO 1,600 mg TIDWM CHAYO Administration Radiology Results: ITS Impressions Chest X-Ray 11/29/24 21:10 IMPRESSION: 1. Small bilateral pleural effusions with bibasilar atelectasis and/or pneumonia. Hand X-Ray 12/01/24 08:35 Impression: No acute fracture or malalignment. Labs Labs: Laboratory Results - last 24 hr 11/30/24 12/01/24 12/01/24 20:13 06:02 07:42 WBC 8.4 RBC 3.43 L Hgb 8.6 L Hct 28.6 L MCV 83.4 MCH 25.1 L MCHC 30.1 L RDW 18.5 H Plt Count 188 MPV 9.4 Immature Gran % (Auto) 0.5 Neut % (Auto) 46.8 Lymph % (Auto) 37.7 [place] % (Auto) 6.8 Eos % (Auto) 7.6 H Baso % (Auto) 0.6 Lymph # (Auto) 3.18 [place] # (Auto) 0.6 Eos # (Auto) 0.6 H Baso # (Auto) 0.1 Abs Immat Gran (auto) 0.04 H Absolute Neuts (auto) 4.0 Absolute Nucleated RBC 0.000 Nucleated RBC % 0.0 Sodium 136 L Potassium 5.0 Chloride 101 Carbon Dioxide 28 Anion Gap 7 BUN 35 H Creatinine 8.98 H Estim Creat Clear Calc 8 Estimated GFR 5 L Glucose 91 POC Capillary Glucose 139 H 111 H Calcium 9.6 Phosphorus 4.8 H Albumin 3.4 L Hep Bs Antigen Negative Hep Bs Antibody Positive 12/01/24 12/01/24 11:43 16:54 WBC RBC Hgb Hct MCV MCH MCHC RDW Plt Count MPV Immature Gran % (Auto) Neut % (Auto) Lymph % (Auto) [place] % (Auto) Eos % (Auto) Baso % (Auto) Lymph # (Auto) [place] # (Auto) Eos # (Auto) Baso # (Auto) Abs Immat Gran (auto) Absolute Neuts (auto) Absolute Nucleated RBC Nucleated RBC % Sodium Potassium Chloride Carbon Dioxide Anion Gap BUN Creatinine Estim Creat Clear Calc Estimated GFR Glucose POC Capillary Glucose 255 H 103 Calcium Phosphorus Albumin Hep Bs Antigen Hep Bs Antibody
[2024-12-01] MEDS: rOPINIRole HCL 0.125 MG TABLET PO (20:55)
[2024-12-01] MEDS: DOXAZOSIN MESYLATE 2 MG TABLET 4 MG PO (20:55)
[2024-12-01] MEDS: GABAPENTIN 100 MG CAPSULE 200 MG PO (21:07)
[2024-12-01] MEDS: cefTRIAXone 1 GM in SODIUM CHLORIDE 0.9% IV 50 ML 100 ML IVPB (21:07)
[2024-12-01] MEDS: AZITHROMYCIN IV 500 MG in SODIUM CHLORIDE 0.9% IV 250 ML 125 ML IVPB (22:46)
[2024-12-02] VITALS: PULSE 78
[2024-12-02] MEDS: diphenhydrAMINE HCl CAP 25 MG CAPSULE PO (00:58)
[2024-12-02 03:54] VITALS: BP 183/88; PULSE 76; RESP 18; TEMP 36.6; O2SAT 100
[2024-12-02 04:00] VITALS: PULSE 79
[2024-12-02] MEDS: GABAPENTIN 100 MG CAPSULE 200 MG PO (06:00)
[2024-12-02 08:01] VITALS: PULSE 77
[2024-12-02 09:00] VITALS: PULSE 79
[2024-12-02] MEDS: INSULIN GLARGINE (*BKC) 100 UNITS/ML 10 UNITS SUB-Q (09:00)
[2024-12-02] MEDS: SEVELAMER CARBONATE 800 MG TABLET 1600 MG PO (09:00)
[2024-12-02] MEDS: LABETALOL HCL 100 MG TABLET 400 MG PO (09:00)
[2024-12-02] MEDS: APIXABAN 5 MG TABLET PO (09:01)
[2024-12-02] MEDS: LOSARTAN POTASSIUM 100 MG TABLET PO (09:01)
--- NOTE | 2024-12-02 10:16 | P.PNNP_ITS ---
Progress Note: A&P Assessment and Plan (1) End stage renal disease: Code(s): N18.6 - End stage renal disease Status: Chronic Assessment and Plan: * HD tomorrow * continue //Thursday dialysis schedule while hospitalized * follow trend of electrolytes, volume status, and clearance (2) Shortness of breath: Code(s): R06.02 - Shortness of breath Status: Acute Assessment and Plan: * seems better * etiology not clear * possibilities include: * pneumonia (?) * pleural effusions (but small by CXR) * relative anemia * cardiac issue(?) * other (?) * continue current therapy * fluid removal with dialysis * antibiotics * Epogen with HD * attempt review records from recent hospitalization at [facility] * if persists, consider CT of chest * less likely a PE since already on Eliquis as an outpatinet... (3) Pneumonia: Code(s): J18.9 - Pneumonia, unspecified organism Status: Acute Assessment and Plan: * suggested by admission CXR, however: * normal WBC * no hypoxia * no productive cough * follow culture data * on antibiotics (4) Anemia: Code(s): D64.9 - Anemia, unspecified Status: Chronic Assessment and Plan: * due to ESRD and recent hospitalization * Epogen with HD * follow trend of H/H (5) Hypertension: Code(s): I10 - Essential (primary) hypertension Status: Chronic Assessment and Plan: * quite elevated on presentation * resume home medications * just increase labetalol to 400mg bid and cardura to 4mg qhs * further adjustments may be needed * PRN IV hydralazine * follow trend of hemodynamics (6) Diabetes: Code(s): E11.9 - Type 2 diabetes mellitus without complications Status: Chronic Assessment and Plan: * follow accu-cheks * glycemic control per hospitalist Not opposed to discharge from renal perspective if otherwise medically stable -- I will follow-up with her at her outpatient dialysis clinic/unit. Will continue to follow. Subjective Date/time seen: 12/02/24 10:16 Interval history: Follow-up for end stage renal disease on hemodialysis. Tolerated dialysis treatment yesterday without any issues or problems; breathing/respiratory status seems stable although was never severe even on admission; blood pressure has been running high so medications have been adjusted; no events overnight or earlier this morning. Exam Narrative: General: WD/WN female in NAD Heart: normal S1 and S2; no rub Lungs: clear to auscultation Abdomen: soft, nontender, nondistended, positive bowel sounds Extremities: no cyanosis or clubbing; no edema Skin: warm and intact Objective Data Vital Signs Vital Signs: Vital Signs Temp Pulse Resp BP Pulse Ox O2 Del Method FiO2 12/02/24 09:00 79 12/02/24 04:00 79 12/02/24 03:54 97.8 F 76 18 183/88 H 100 12/02/24 00:00 78 12/01/24 21:49 97.9 F 78 18 170/86 H 98 12/01/24 20:55 87 12/01/24 20:00 82 12/01/24 20:00 78 18 98 Room Air 21 12/01/24 18:28 98.1 F 75 16 188/95 H 98 12/01/24 18:17 79 174/97 H 12/01/24 18:02 84 177/89 H 12/01/24 17:48 85 176/82 H 12/01/24 17:30 89 178/93 H 12/01/24 17:15 77 174/96 H 12/01/24 17:00 81 174/86 H 12/01/24 16:45 85 150/80 H 12/01/24 16:30 80 148/76 H 12/01/24 16:15 81 159/77 H 12/01/24 16:00 85 175/89 H 12/01/24 15:45 85 169/88 H 12/01/24 15:30 73 177/86 H 12/01/24 15:15 74 166/85 H 12/01/24 14:43 78 167/91 H 12/01/24 14:35 97.0 F L 75 16 173/77 H 99 Intake/Output Intake/Output: Intake & Output 1011/30/24 12/01/24 12/02/24 23:59 23:59 23:59 23:59 Intake Total 2700 1410 690 Output Total 3000 Balance 2700 -1590 690 Meds/Results Medications: Active Medications Generic Name Dose Route Start Last Admin Trade Name Freq PRN Reason Stop Dose Admin Acetaminophen 650 mg 12/01/24 01:47 12/01/24 20:54 Acetaminophen 325 Mg Tablet PO 650 mg Q6H PRN Administration Pain Amlodipine Besylate 10 mg 11/30/24 09:00 12/02/24 09:01 Amlodipine Besylate 10 Mg Tablet PO 10 mg DAILY CHAYO Administration Apixaban 5 mg 11/30/24 09:00 12/02/24 09:01 Apixaban 5 Mg Tablet PO 5 mg Q12HR CHAYO Administration Calamine 1 applic 12/01/24 15:31 Calamine Lotion 120 Ml Bottle TOPICAL QAM PRN Itching Dextrose 12.5 gm 11/30/24 01:26 Dextrose 50% 25 Gm/50 Ml Syringe IV PUSH PRN PRN Hypoglycemia Protocol Diphenhydramine HCl 25 mg 12/02/24 00:03 12/02/24 00:58 Diphenhydramine Hcl Cap 25 Mg Capsule PO 25 mg Q6H PRN Administration Itching Doxazosin Mesylate 4 mg 12/01/24 21:00 12/01/24 20:55 Doxazosin Mesylate 2 Mg Tablet PO 4 mg QHS CHAYO Administration Gabapentin 200 mg 11/30/24 06:00 12/02/24 06:00 Gabapentin 100 Mg Capsule PO 200 mg Q8HR CHAYO Administration Glucose 15 gm 11/30/24 01:26 Glucose Oral Gel 15 Gm Of Glucse In 37.5 Gm Tube PO PRN PRN Hypoglycemia Protocol Hydralazine HCl 10 mg 11/30/24 00:28 12/01/24 03:59 Hydralazine Hcl 20 Mg/Ml Vial IV PUSH 10 mg Q8H PRN Administration SBP >180 Ceftriaxone Sodium 1 gm/ 50 mls @ 100 mls/hr 11/30/24 22:00 12/01/24 21:37 Sodium Chloride IVPB Infused Q24H CHAYO Infusion Azithromycin 500 mg/ Sodium 250 mls @ 250 mls/hr 11/30/24 23:00 12/02/24 00: 46 Chloride IVPB 12/03/24 23:59 Infused Q24H CHAYO Infusion Dextrose 1,000 mls @ 100 mls/hr 11/30/24 01:26 Dextrose 5% 1,000 Ml IVPB PRN PRN Hypoglycemia Protocol Albumin Human 50 mls @ 999 mls/hr 12/01/24 05:45 Albutein IVPB 12/31/24 05:44 Q10M PRN HYPOTENSION Insulin Aspart 2 - 5 units 11/30/24 08:00 12/02/24 12:26 Insulin Aspart (*Bkc) 100 Units/Ml SUB-Q 2 units TIDWM CHAYO Administration Protocol Insulin Aspart 1 - 2 units 11/30/24 21:00 12/01/24 22:16 Insulin Aspart (*Bkc) 100 Units/Ml SUB-Q Not Given HS CHAYO Protocol Insulin Glargine 10 units 11/30/24 09:00 12/02/24 09:00 Insulin Glargine (*Bkc) 100 Units/Ml SUB-Q 10 units DAILY CHAYO Administration Labetalol HCl 400 mg 11/30/24 21:00 12/02/24 09:00 Labetalol Hcl 100 Mg Tablet PO 400 mg Q12HR CHAYO Administration Losartan Potassium 100 mg 11/30/24 09:00 12/02/24 09:01 Losartan Potassium 100 Mg Tablet PO 100 mg DAILY CHAYO Administration Ropinirole HCl 0.125 mg 11/30/24 21:00 12/01/24 20:55 Ropinirole Hcl 0.125 Mg Tablet PO 0.125 mg HS CHAYO Administration Sevelamer Carbonate 1,600 mg 11/30/24 08:00 12/02/24 12:26 Sevelamer Carbonate 800 Mg Tablet PO 1,600 mg TIDWM CHAYO Administration Radiology Results: ITS Impressions Chest X-Ray 11/29/24 21:10 IMPRESSION: 1. Small bilateral pleural effusions with bibasilar atelectasis and/or pneumonia. Hand X-Ray 12/01/24 08:35 Impression: No acute fracture or malalignment. Labs Labs: Laboratory Results - last 24 hr 12/01/24 12/01/24 12/02/24 16:54 21:59 08:07 POC Capillary Glucose 103 194 H 118 H 12/02/24 11:52 POC Capillary Glucose 213 H
[2024-12-02 12:05] VITALS: PULSE 73
--- NOTE | 2024-12-02 12:26 | PM.DS ---
DS: Admitting Diagnosis Discharge Date 12/02/24 Admitting Diagnosis Shortness of breath DS: Discharge Diagnosis Discharge Diagnosis (1) Hypertensive urgency: Code(s): I16.0 - Hypertensive urgency Status: Acute (2) Shortness of breath: Code(s): R06.02 - Shortness of breath Status: Acute (3) Bilateral pleural effusion: Code(s): J90 - Pleural effusion, not elsewhere classified Status: Acute Plan Currently patient blood pressure in trending down, patient stats feels better compared to when she arrived, patient presented with shortness of breath, chest x-ray showing pneumonia patient is being treated with ceftriaxone and zithromax, will monitor, patient is seen by her page designer and patient will have dialysis as scheduled today and will plan. A pleasant 44-year-old [place] female with PMH ESRD on dialysis Thursday followed by Dr. Fernandez presents shortness of breath. Denies chest pain, cough, fever. She woke up from a nap with shortness of breath. She last got her dialysis on the day of admission 11/29/2024. Elevated blood pressure in the ER 227/91, improved 176/91 after labetalol 60 mg IV total, hydralazine 20 mg IV x1. Patient given ceftriaxone and azithromycin. Chest x-ray shows small bilateral pleural effusion with bibasilar atelectasis and/or pneumonia. ----- Consult Nephrology, patient may need another round of fluid takeoff. Receive antibiotics for possible pneumonia. Control blood pressure. Hydralazine p.r.n.. SYSTEM DEVELOPER ASSOCIATE MANAGER medications will be restarted as appropriate. History of DVT, restart SYSTEM DEVELOPER ASSOCIATE MANAGER Eliquis. Accu-Cheks a.c. HS with low-dose insulin sliding scale and hypoglycemia protocol. Patient wishes to be full code. Renal dialysis diet. DS: Summary Hospital Course Hospital Course: Currently patient blood pressure in trending down, patient stats feels better compared to when she arrived, patient presented with shortness of breath, chest x-ray showing pneumonia patient is being treated with ceftriaxone and zithromax, will monitor, patient is seen by her page designer and patient will have dialysis as scheduled today and will plan. A pleasant 44-year-old [place] female with PMH ESRD on dialysis Thursday followed by Dr. Fernandez presents shortness of breath. Denies chest pain, cough, fever. She woke up from a nap with shortness of breath. She last got her dialysis on the day of admission 11/29/2024. Elevated blood pressure in the ER 227/91, improved 176/91 after labetalol 60 mg IV total, hydralazine 20 mg IV x1. Patient given ceftriaxone and azithromycin. Chest x-ray shows small bilateral pleural effusion with bibasilar atelectasis and/or pneumonia. ----- patient was seen Nephrology, patient may need another round of fluid takeoff. Receive antibiotics for possible pneumonia. Control blood pressure. Hydralazine p.r.n.. SYSTEM DEVELOPER ASSOCIATE MANAGER medications will be restarted as appropriate. History of DVT, restart SYSTEM DEVELOPER ASSOCIATE MANAGER Eliquis. Accu-Cheks a.c. HS with low-dose insulin sliding scale and hypoglycemia protocol. patient had dialysis, feels better, and wants to go home, her BP is still elevated, communicated with Dr Barrett, stated he as increased her labetalol to 400mg BID and cardura to 4mg qhs, will follow her in his clinic, Okay to discharge the patient. Time Spent with Patient Time attestation: Total time spent providing and/or coordinating discharge services: Exam Narrative: Patient is comfortable, NAD HEENT: eyes are clear and none icteric LUNGS:CTA HEART: RR S1S2 ABD: BS+, Soft and nontender Lower extremities: no edema SKIN: nonjaundiced Neuro: grossly intact. DS: Data Data Completed and Pending Labs on day of discharge: Labs from last 24 hours 12/02/24 12/01/24 12/01/24 08:07 21:59 16:54 POC Capillary Glucose 118 H 194 H 103 12/01/24 11:43 POC Capillary Glucose 255 H Discharge Plan Discharge Attending physician on discharge: Estefanía Zapata Consulting providers: Beth Fernandez Discharging Clinician: Aaliyah Del Real Patient Disposition: Home Activity: as tolerated Diet: heart healthy, renal and low sodium Discharge Instructions: patient to follow up with her page designer and will have outpatient dialysis as scheduled, patient to follow up with her primary care provider as soon as possible, patient is instructed if any symptoms redevelop to go to nearest ER. Patient Instructions: Antibiotic Form, Apixaban (By mouth), Blood Thinners (DC) Patient Language: Sami Stand Alone Forms: General Discharge Information Follow-up/Referrals: Beth Fernandez MD [Physician, Nephrology] Sulema Lennon APRN [Primary Care Provider, Internal Medicine] Discharge Medications: New cefdinir 300 mg capsule 300 mg PO Q12H Qty: 14 0RF doxycycline hyclate 100 mg capsule 100 mg PO BIDWMEAL Qty: 14 0RF dextrose [Glutose-15] 40 % Gel 15 g PO PRN PRN (Reason: Hypoglycemia) Qty: 112 0RF labetalol 100 mg Tablet 400 mg PO Q12HR Qty: 240 0RF Continued amlodipine 10 mg tablet 10 mg PO DAILY Qty: 90 1RF doxazosin [Cardura] 2 mg tablet 2 mg PO QHS Qty: 30 1RF losartan 100 mg tablet 100 mg PO DAILY Qty: 30 1RF lactulose 10 gram/15 mL solution 15 ml PO QHS PRN (Reason: constipation) insulin degludec 100 unit/mL (3 mL) insulin pen 10 unit subcut DAILY Qty: 15 1RF Eliquis 5 mg tablet 5 mg PO BID Qty: 60 5RF labetalol 200 mg tablet 200 mg PO BID Qty: 180 1RF sevelamer HCl 800 mg tablet 1,600 mg PO TID Rx Instructions: must administer with a meal/food gabapentin 100 mg capsule 200 mg PO TID Rx Instructions: TAKE 2 CAPSULES BY MOUTH 3 TIMES DAILY (DME) pen needle, diabetic [Easy Comfort Pen [place]] 32 gauge x 5/32 needle See Rx Instructions .Route Qty: 50 3RF Rx Instructions: Inject insulin once daily As directed (DME) FreeStyle Alexandro 3 Plus Sensor Device See Rx Instructions .Route Qty: 2 3RF Rx Instructions: Check glucose continuously every 15 days As directed acetaminophen 500 mg tablet 1,000 mg PO TID PRN (Reason: tessie) Qty: 180 1RF Date of admission: 11/30/24 00:28 Primary Care Provider: Sulema Lennon Admitting Provider: Estefanía Zapata Attending physician on admission: Estefanía Zapata Condition: Stable
== END 2024-12-02 13:20 | disposition home or self-care (01) ==
LOC: ANHED 11-30 00:31 → ANHIMU 11-30 03:00 → ANH3MEDSUR 12-02 11:22 → ANHIMU 12-05 07:49
PROVIDERS: Internal Medicine Nephrology; Admitting Provider General Practice; Emergency Provider Emergency Medicine; PCP Nurse Practitioner Family; Visit Provider Family Medicine
DX: J18.9 Pneumonia, unspecified organism (principal); R06.02 Shortness of breath; J90 Pleural effusion, not elsewhere classified; I16.0 Hypertensive urgency; R94.31 Abnormal electrocardiogram [ECG] [EKG]; I12.0 Hypertensive chronic kidney disease with stage 5 chronic kidney disease or end stage renal disease; N18.6 End stage renal disease; D63.1 Anemia in chronic kidney disease; Z99.2 Dependence on renal dialysis; E11.21 Type 2 diabetes mellitus with diabetic nephropathy; Z79.4 Long term (current) use of insulin; E11.22 Type 2 diabetes mellitus with diabetic chronic kidney disease; E66.9 Obesity, unspecified; Z68.35 Body mass index [BMI] 35.0-35.9, adult; Z20.822 Contact with and (suspected) exposure to COVID-19; Z79.01 Long term (current) use of anticoagulants; Z79.899 Other long term (current) drug therapy; Z79.2 Long term (current) use of antibiotics; Z79.891 Long term (current) use of opiate analgesic; K58.9 Irritable bowel syndrome, unspecified; G62.9 Polyneuropathy, unspecified; Z90.49 Acquired absence of other specified parts of digestive tract; M17.12 Unilateral primary osteoarthritis, left knee; M19.032 Primary osteoarthritis, left wrist; Z83.3 Family history of diabetes mellitus; Z80.3 Family history of malignant neoplasm of breast; Z80.42 Family history of malignant neoplasm of prostate; Z82.49 Family history of ischemic heart disease and other diseases of the circulatory system; Z83.2 Family history of diseases of the blood and blood-forming organs and certain disorders involving the immune mechanism
CPT/HCPCS: 36415; 36600; 71045; 73120; 80048; 80053; 80069; 82805; 82948; 83605; 83735; 83880; 84145; 84484; 85018; 85025; 85027; 86706; 87340; 87637; 87641; 93005; 96365; 96366; 96367; 96375; 96376; 99285; A9270; G0257; G0378; J0360; J0456; J0696; J1644; J1815; J7030; J7050; Q5105

== ENCOUNTER 2024-12-14 08:28 | Emergency (ER) | payer MEDICARE, MEDICAID, SELFPAY ==
[2024-12-14] VITALS (10 sets, daily range): BP systolic 154–218; BP diastolic 86–101; PULSE 66–90; RESP 14–21; TEMP 36.4; O2SAT 97–100
--- NOTE | ~2024-12-14 | XR_ITS ---
Examination: XR chest 2V Clinical History: CP/SOB Comparison: 11/29/2024 Technique: PA and Lateral Findings: Left permacath. Cardiomegaly. Increased interstitial markings, small pleural effusions, bibasilar atelectasis. No acute bony abnormality. IMPRESSION: 1. Interstitial pulmonary edema with small pleural effusions. Reviewed, dictated and finalized at location R.
--- NOTE | ~2024-12-14 | CT_ITS ---
CT CHEST WITHOUT CONTRAST CLINICAL HISTORY: Difficulty breathing . COMPARISON: Chest x-ray today CTA chest 06/21/2018 TECHNIQUE: Helical CT performed from thoracic inlet to upper abdomen without contrast Coronal, sagittal reformats CT images acquired with automatic exposure control for dose reduction DLP: 219 mGy-cm FINDINGS: Lungs/Pleura: Interlobular septal thickening. Large right and small left pleural effusions. Scattered groundglass airspace opacity. Heart: Cardiomegaly. Small pericardial fluid. Coronary artery calcifications. Thoracic Aorta: No aneurysm. Pulmonary arteries: Normal caliber. Tracheobronchial tree: Patent. Nodes: No enlarged nodes. Bones: No acute bony abnormality. Soft tissues: Unremarkable. Visualized upper abdomen: Hepatomegaly. IMPRESSION: 1. Interstitial pulmonary edema with pleural effusions. Reviewed, dictated and finalized at location R.
--- NOTE | 2024-12-14 08:30 | ECG_ITS ---
Test Date: 2024-12-14 08:54:39 Measurements Intervals [place] Rate: 76 P: 55 OR: 146 QRS: -10 QRSD: 82 T: 75 QT: 416 QTc: 468 Interpretive Statements SINUS RHYTHM POSSIBLE ANTERIOR MYOCARDIAL INFARCTION , OF INDETERMINATE AGE BORDERLINE ST-T WAVE ABNORMALITY- HIGH LATERAL LEADS ABNORMAL ECG Compared to ECG 11/30/2024 00:17:22 No significant changes Electronically Signed On 12-14-2024 09:15:14 CDT by Tomasz Scott D.O.
--- OUTSIDE RECORDS SUMMARY | 2024-12-14 08:49 | XMS_ITS | Encounter Summary ---
Author Organization [facility] Health Address [address] [place] [address] Care Team Providers Care Greens Tier Name Role Phone Jessie Dickson GAUGE CONTROLLER-TRANSPLANT RN Primary Care Pro vider Encounter Details Date Type Department Care Team (Late st Contact Info) Description 05/25/2018 Ophth Exam [facility] [place] [address] Regina Fritz MD [address] [place] [id number] Social History Tobacco Use Types Packs/Day Years Used Date Smoking Tobacco: Never Smokeless Tobacco: Never Alcohol Use Standard Drinks/Week Comments No 0 (1 standard drink = 0.6 oz pur e alcohol) socially. Comments No Sex and Gender Information Value Date Recorded Sex Assigned at Not on file Legal Sex Female 5:16 PM [employer] Gender Identity Not on file Sexual Orientation Not on file documented as of this encounter Functional Status * Functional and Cognitive Status Question Answer Date of Assessment Author Is person deaf or have mynor us hearing difficulty? No 05/25/2018 2:01 AM CDT Sheblie Mar RN Is person blind or have seri ous difficulty seeing? Yes 05/25/2018 2:01 AM Shelbie White RN Does person have serious difficulty walking/climbing stairs? No 05/25/2018 2:01 AM Shelbie White RN Does person have difficulty dressing/bathing? No 05/25/2018 2:01 AM Shelbie White RN Does person have difficulty doing errands alone? No 05/25/2018 2:01 AM Shelbie White RN Does person have difficulty concentrating/remembering/making decisions? No 05/25/2018 2:01 AM Shelbie White RN * Is person deaf or have serious [...] 05/25/2018 2:01 AM Leif White RN * In the past 30 days, have you wished you were or wished you could go to sleep and not wake up? Answer Date of Assessment Author No 05/25/2018 2:01 AM Leif White RN * In the past 30 days, have you actually had any thoughts about killing yourself? Answer Date of Assessment Author No 05/25/2018 2:01 AM Leif White RN documented as of this encounter Mental Status * Does person have difficulty concentrating/remembering/making decisions? Answer Entry Date Author No 05/25/2018 2:01 AM Leif White RN documented in this encounter Plan of Treatment Not on file documented as of this encounter Visit Diagnoses Not on filedocumented in this encounter Care Teams Greens Tier Relationship Specialty Start Date End Date Jessie Dickson TAMMY-TRANSPLANT RN [address] [place] [id number] PCP - General 06/30/14 documented as of this encounter
--- OUTSIDE RECORDS SUMMARY | 2024-12-14 08:49 | XMS_ITS | Clinical Summary ---
Author Organization [facility] Address [address] [place] [address] Care Team Providers Care Department Head [employer] Name Role Phone Jessie Dickson RIGGER UP-VERTICAL BORER Primary Care Pro vider Source Comments [facility],non-owned Affiliates and Associated Physician Practices is amultiple site organization consisting of ambulatory clinics and hospital sitesin [place], [place], [place] and [place]. This disclosure is being madepursuant to the Care Everywhere program and may not contain all information available regarding this patient. Last updated 17.[facility] Allergies Active Allergy Reactions Criticality Noted Date [...] Each 11 06/10/19 19 Active ergocalciferol (DRISDOL) 59800 units capsule Take 1 capsule by mouth [...] 2 tablet 01/22/20 22 Active HYDROcodone-acetami nophen ([place]) 5-325 MG tablet Take 1 (one) tablet [...] on file Legal Sex Female 5:16 PM WELL HEAD PUMPER Gender Identity Not on file Sexual Orientation Not on file Last Filed Vital Signs Vital Sign Reading Time Taken Comments Blood Pressure 145/85 02/05/2022 12:[address] irizarry aware; ok to d/cv Pulse 74 02/05/2022 11:55 AM WELL HEAD PUMPER Temperature 36.8 C (98.2 F) 09/13/2019 8:22 AM CDT Respiratory Rate 12 02/05/2022 11:5 0 AM WELL HEAD PUMPER Oxygen Saturation 100% 02/05/2022 11: 55 AM WELL HEAD PUMPER Inhaled Oxygen Concentration - - Weight 108.9 [...] 11/01/2018 10:11 AM CDT us Tessie Pritchard APRN-VERTICAL BORER LAB - POINT OF CARE O RDERABLES Final Result * HEPATITIS C AB SCREEN RFLX NAAT QUANT (05/28/2018 12:13 PM CDT) Hepatitis C Antibody Non-react javier Non-reac tive 05/28/2018 1:18 PM CDT [facility] Comment: Hepatitis C Antibody screen indicates [...] MD LAB - CHEMISTRY ORDERABLES Final Result [address] [phone] * HIV-1 HIV-2 ANTIGEN/ANTIBODY (05/24/2018 5:08 PM CDT) HIV Antigen/Antibod y 1 & 2 Non-reacti ve Non-react javier 05/24/2018 5:54 PM CDT [facility] Comment: Neither HIV-1 p24 Antigen nor HIV-1/HIV-2 Antibodies are detected. Blood BLOOD SPECIMEN / Unknown Venipuncture / Unknown 05/24/2018 5:08 PM CDT 05/24/2018 5:16 PM CDT us Namita Raymond MD LAB - HEMATOLOGY ORDERABLES Fi nal Result [address] [phone] from Last 3 Months or Most Recently Relevant to Health Maintenance Insurance MEDICARE MEDICAID - [place] [facility] MEDICAID SPENDDOWN - [place] - OUT OF STATE Advance Directives * Full Code (Latest Code Status on File) Date Activated Date Inactivated Comments 05/25/2018 12:57 AM 05/28/2018 5:22 PM * Full Code Date Activated Date Inactivated Comments 05/24/2018 6:24 PM 05/25/2018 12:57 AM Care Teams Department Head [employer] Relationship Specialty Start Date End Date Jessie Dickson APRN-CNP [id number] [phone] PCP - General 06/30/14
--- OUTSIDE RECORDS SUMMARY | 2024-12-14 08:49 | XMS_ITS ---
Author Organization [facility] Address [address] [place] [address] Care Team Providers Care Police Aide Name Role Phone Almita Rizzo RN Unavailable [phone] Beth Fernandez MD Unavailable [phone] Maday Oviedo MD Unavailable [phone] Tomasz Scott DO Unavailable [phone] Meir Nazario MD Unavailable [phone] Sulema Lennon NP Primary Care Provider [phone] Dialysis Access Sites Type Status Location Placement [...] DEVICE Routine 09/13/2024 9 :24 PM CDT [facility] ILL/INJURED PATIENT INIT 30-74 MIN [...] METABOLIC PANEL STAT 09/13/2024 11:50 AM CDT LIPID PANEL STAT 06/21/2024 7:20 PM CDT HEPATITIS C ANTIBODY Routine 02/16/2024 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 Pre-kidney transplant, patient on transplant list [...] times a day 90 capsule 12/01/19 24 Active rOPINIRole (REQUIP) 0.5 mg tablet Take 1 tablet (0.5 mg total) by mouth 3 (three) times a day as needed (restless legs) for up to 30 doses 30 tablet 12/01/19 24 Active albuterol HFA (PROVENTIL HFA,VENTOLIN HFA,PROAIR HFA) 90 mcg/actuation inhaler Inhale 2 puffs every 4 (four) hours as needed for wheezing 6.7 g 01/08/20 Active benzonatate (TESSALON) 100 mg capsule Take 1 capsule (100 mg total) by mouth 3 (three) times a day as needed for cough 15 capsule 01/08/20 Active lidocaine (LIDODERM) 5 % Place 1 patch on the skin daily Remove & discard patch within 12 hours or as directed by MD. 5 patch 04/06/19 25 Active ondansetron ODT (ZOFRAN-ODT) 4 mg disintegrating tablet Take 1 tablet (4 mg total) by mouth every 8 (eight) hours as needed for nausea or vomiting 20 tablet 06/15/19 Active polyethylene glycol (MIRALAX) 17 gram/dose bulk [...] (04/10/2022): Added automatically from request for surgery [id number] Hypertension 2021 ESRD (end stage renal disease) [...] Tobacco Cessation:Counseling Given: Not Answered [facility] Utilities Answer Date Recorded In the past 12 months has th e [employer], gas, oil, or water company threatened to [...] often do you attend chur ch or presybeterian services? More than 4 times per year 09/14/2024 Do you belong to any clubs o r organizations such as muslim groups, unions, fraternal or athletic groups, or [...] any time in the past 12 [facility], were you homeless or living in a longterm (including now)? No 09/14/2024 Personal Safety Answer Date Recorded Have you ever been in or are you currently in a harmful physical or emotional relationship or is someone making you feel afraid or unsafe? 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 Gender Identity Not on file Sexual [...] signed by Albert ORNELAS T: Report ID: [id number] Reading Location: [id number] Procedure Note Albert Lopes MD - 10/06/2024 [...] signed by Albert ORNELAS T: Report ID: [id number] Reading Location: [id number] Jackie COOPER XR PROCEDURES Final Resul t * XR [...] signed by Albert ORNELAS T: Report ID: [id number] Reading Location: [id number] Procedure Note Albert Lopes MD - 10/06/2024 [...] signed by Albert ORNELAS T: Report ID: [id number] Reading Location: [id number] Jackie RAPHAEL IMG XR PROCEDURES Final Resul t * (ABNORMAL) eGFR (10/06/2024 2:27 PM CDT) Pathologist [facility] eGFR 3(L) [...] RAPHAEL LAB BLOOD ORDERABLES Final Re sult [facility] [address] [facility] [place] [address] * Differential, auto (10/06/2024 2:27 PM CDT) Pathologist [facility] Neutrophil abs 6.30 1.50 - 6.50 K/cumm Imm gran abs 0.04 0.00 - 0.10 K/cumm [facility] Lymphocyte abs 2.11 0.80 - 3.30 K/cumm [facility] Monocyte abs 0.68 0.20 - 0.80 K/cumm [facility] Eosinophil abs 0.45 0.00 - 0.50 K/cumm [facility] Basophil abs 0.05 0.00 - 0.10 K/cumm [facility] Neutrophil pct 65.4 % [facility] Comment: Interpretive Data Percent cell count reference ranges are not reported, since discordance with absolute values may lead to misinterpretation of CBC data. Current Interpretive Data was last revised on 2017. Imm gran pct 0.4 % [facility] Comment: Interpretive Data Percent cell count reference ranges are not reported, since discordance with absolute values may lead to misinterpretation of CBC data. Current Interpretive Data was last revised on 2017. Lymphocyte pct 21.9 % [facility] Comment: Interpretive Data Percent cell count reference ranges are not reported, since discordance with absolute values may lead to misinterpretation of CBC data. Current Interpretive Data was last revised on 2017. Monocyte pct 7.1 % [facility] Comment: Interpretive Data Percent cell count reference ranges are not reported, since discordance with absolute values may lead to misinterpretation of CBC data. Current Interpretive Data was last revised on 2017. Eosinophil pct 4.7 % [facility] Comment: Interpretive Data Percent cell count reference ranges are not reported, since discordance with absolute values may lead to misinterpretation of CBC data. Current Interpretive Data was last revised on 2017. Basophil pct 0.5 % [facility] Comment: Interpretive Data Percent cell count reference ranges are not reported, since discordance with absolute values may lead to misinterpretation of CBC data. Current Interpretive Data was last revised on 2017. Blood 10/06/2024 2:27 PM CDT 10/06/2024 2:30 PM CDT us Jackie RAPHAEL LAB BLOOD ORDERABLES Final Re sult DENNIS JOSUE [address] [facility] [place] [address] * (ABNORMAL) CBC with auto differential (10/06/2024 2:27 PM CDT) WBC 9.63 3.80 - 9.90 K/cumm Hgb 7.5(L) 11.9 - 15.5 g/dL [facility] Hct 24.4(L) 35.6 - 45.5 % [facility] Plt 218 150 - 400 K/cumm [facility] MPV 10.6 9.1 - 12.3 fL [facility] RBC 2.93(L) 3.90 - 5.20 M/cumm [facility] MCV 83.3 81.3 - 96.4 fL [facility] MCH 25.6(L) 27.1 - 33.3 pg [facility] MCHC 30.7(L) 32.3 - 35.7 g/dL [facility] RDW CV 16.9(H) 11.1 - 14.9 % [facility] RDW SD 50.4(H) 35.7 - 48.1 fL [facility] NRBC abs 0.00 0.00 - 0.01 K/cumm [facility] Blood 10/06/2024 2:27 PM CDT 10/06/2024 2:30 PM CDT us Jackie RAPHAEL LAB BLOOD ORDERABLES Final Re sult [facility] [address] [facility] [place] [address] * (ABNORMAL) Comprehensive metabolic panel (10/06/2024 2:27 PM CDT) Sodium 138 135 - 145 mmol/L Potassium, pl 4.1 3.3 - 4.9 mmol/L [facility] Chloride 99 97 - 110 mmol/L [facility] CO2 24 22 - 32 mmol/L [facility] Anion gap 15 2 - 15 mmol/L [facility] BUN 49(H) 6 - 25 mg/dL [facility] Creatinine 14.10(H) 0.60 - 1.10 mg/dL [facility] Glucose 248(H) 70 - 199 mg/dL [facility] Comment: Interpretive Data Fasting glucose >/= [...] 2022. Calcium 8.6 8.5 - 10.3 mg/dL [facility] Bilirubin, total 0.2 0.1 - 1.2 mg/dL [facility] Protein, pl 6.4(L) 6.5 - 8.5 g/dL [facility] Albumin 2.8(L) 3.5 - 5.0 g/dL [facility] Alk phos 321(H) 40 - 130 Units/L [facility] ALT 55(H) 7 - 45 Units/L [facility] AST 39 10 - 45 Units/L [facility] Blood 10/06/2024 2:27 PM CDT 10/06/2024 2:30 PM CDT Jackie RAPHAEL LAB BLOOD ORDERABLES Final Re sult Performing Organization Address City/[facility]/ZIP Co de Phone Number [facility] [address] [facility] [place] [address] * HLA Crossmatch Report (09/26/2024 10:00 AM [...] 10:0 0 AM CDT Narrative HISTOTRAC - 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 Single Antigen [...] laboratory based on an FDA-approved IVD kit (7 Cups of Teacreen Single-Antigen, [employer], [place], [place]). All patient serum samples are pretreated with EDTA before the screen to prevent complement interference. Additional serum treatments, such as adsorption and DTT treatment, may be performed as indicated. Interpretive comments: Low risk: MFI 8420-2851. Moderate risk: MFI 4110-9477. Increased risk: MFI >/= 5000. The presence [...] antigens to avoid. Testing performed at the [facility], [facility] [address], [address] floor, [place], [address]. [facility] # [id number]. Amber Berry, Ph.D., [employer], HLA Laboratory Jonathan Brennan M.D., Ph.D., [place], [facility] Laboratory Rehana Alarcon, Ph.D., [place], [facility] Current methodology and interpretive comments last revised on 03/20/2022. us Miriam Garner MD LAB BLOOD ORDERAB LES Final Result HISTOTRAC * POCT glucose (09/15/2024 11:26 AM CDT) Glucose, POC 128 70 - 199 mg/dL Glucose comment 1 RN/MD Notified [facility] Blood 09/15/2024 11:2 6 AM CDT 09/15/2024 11:26 AM CDT [facility]athan Daigle [facility] POCT ORDERABLES - DEV ICE Final Result Performing Organization Address [facility] Co de Phone Number [address] [place] [address] * POCT glucose (09/15/2024 7:41 AM CDT) Pathologist [facility] Glucose, POC 88 70 - 199 mg/dL Glucose comment 1 Use This Result [facility] Glucose comment 2 RN/MD Notified [facility] Blood 09/15/2024 7:41 AM CDT 09/15/2024 7:41 AM CDT [employer] DO LAB POCT ORDERABLES - DEV ICE Final Result Performing Organization Address City/[facility] Co de Phone Number [address] [address] * (ABNORMAL) eGFR (09/15/2024 5:03 AM CDT) [facility] eGFR 3(L) >=60 mL/min/1. 73 m2 [...] DO LAB BLOOD ORDERABLES Vicki l Result [facility] [address] [facility] [place] [address] * Differential, auto (09/15/2024 5:03 AM CDT) Neutrophil abs 4.75 1.50 - 6.50 K/cumm Imm gran abs 0.03 0.00 - 0.10 K/cumm [facility] Lymphocyte abs 2.41 0.80 - 3.30 K/cumm [facility] Monocyte abs 0.57 0.20 - 0.80 K/cumm [facility] Eosinophil abs 0.43 0.00 - 0.50 K/cumm [facility] Basophil abs 0.04 0.00 - 0.10 K/cumm [facility] Neutrophil pct 57.7 % [facility] Comment: Interpretive Data Percent cell count reference ranges are not reported, since discordance with absolute values may lead to misinterpretation of CBC data. Current Interpretive Data was last revised on 2017. Imm gran pct 0.4 % [facility] Comment: Interpretive Data Percent cell count reference ranges are not reported, since discordance with absolute values may lead to misinterpretation of CBC data. Current Interpretive Data was last revised on 2017. Lymphocyte pct 29.3 % [facility] Comment: Interpretive Data Percent cell count reference ranges are not reported, since discordance with absolute values may lead to misinterpretation of CBC data. Current Interpretive Data was last revised on 2017. Monocyte pct 6.9 % [facility] Comment: Interpretive Data Percent cell count reference ranges are not reported, since discordance with absolute values may lead to misinterpretation of CBC data. Current Interpretive Data was last revised on 2017. Eosinophil pct 5.2 % [facility] Comment: Interpretive Data Percent cell count reference ranges are not reported, since discordance with absolute values may lead to misinterpretation of CBC data. Current Interpretive Data was last revised on 2017. Basophil pct 0.5 % [facility] Comment: Interpretive Data Percent cell count reference ranges are not reported, since discordance with absolute values may lead to misinterpretation of CBC data. Current Interpretive Data was last revised on 2017. Blood 09/15/2024 5:03 AM CDT 09/15/2024 5:25 AM CDT us Jonnathan Mojica DO LAB BLOOD ORDERABLES Vicki l Result [facility] [address] [facility] [place] [address] * (ABNORMAL) CBC with auto differential (09/15/2024 5:03 AM CDT) WBC 8.23 3.80 - 9.90 K/cumm Hgb 7.4(L) 11.9 - 15.5 g/dL [facility] Hct 24.4(L) 35.6 - 45.5 % [facility] Plt 269 150 - 400 K/cumm [facility] MPV 9.6 9.1 - 12.3 fL [facility] RBC 2.93(L) 3.90 - 5.20 M/cumm [facility] MCV 83.3 81.3 - 96.4 fL [facility] MCH 25.3(L) 27.1 - 33.3 pg [facility] MCHC 30.3(L) 32.3 - 35.7 g/dL [facility] RDW CV 16.1(H) 11.1 - 14.9 % [facility] RDW SD 48.9(H) 35.7 - 48.1 fL [facility] NRBC abs 0.00 0.00 - 0.01 K/cumm [facility] Blood 09/15/2024 5:03 AM CDT 09/15/2024 5:25 AM CDT [employer] LAB BLOOD ORDERABLES Vicki l Result Performing Organization Address City/[facility] Co de Phone Number [address] [place] [address] * (ABNORMAL) Erythrocyte sedimentation rate (09/15/2024 5:03 AM CDT) Erythrocyte sedimentation rate 52(H) 1 - 20 mm/hr Blood 09/15/2024 5:03 AM CDT 09/15/2024 5:25 AM CDT [employer] LAB BLOOD ORDERABLES Vicki l Result Performing Organization Address [facility] Co de Phone Number [address] [place] [address] * (ABNORMAL) CRP (acute phase) (09/15/2024 5:03 AM CDT) CRP 12.1(H) <=10.0 mg/L Blood 09/15/2024 5:03 AM CDT 09/15/2024 5:25 AM CDT [employer] LAB BLOOD ORDERABLES Vicki l Result Performing Organization Address City/[facility] Co de Phone Number [address] [place] [address] * (ABNORMAL) Phosphorus (09/15/2024 5:03 AM CDT) [facility] Phosphorus, pl 6.8(H) 2.3 - 4.5 mg/dL Blood 09/15/2024 5:03 AM CDT 09/15/2024 5:25 AM CDT Herbert Dahl MD LAB BLOOD ORDERABLES Final Res ult Performing Organization Address City/[facility]/ZIP Co de Phone Number [address] [place] [address] * Magnesium (09/15/2024 5:03 AM CDT) [facility] Magnesium 1.9 1.4 - 2.5 mg/dL Blood 09/15/2024 5:03 AM CDT 09/15/2024 5:25 AM CDT Herbert Dahl MD LAB BLOOD ORDERABLES Final Res ult Performing Organization Address City/[facility] Co de Phone Number [address] [place] [address] * (ABNORMAL) Basic metabolic panel (09/15/2024 5:03 AM CDT) [facility] Sodium 138 135 - 145 mmol/L Potassium, pl 4.2 3.3 - 4.9 mmol/L [facility] Chloride 103 97 - 110 mmol/L [facility] CO2 24 22 - 32 mmol/L [facility] Anion gap 11 2 - 15 mmol/L [facility] BUN 48(H) 6 - 25 mg/dL [facility] Creatinine 13.80(H) 0.60 - 1.10 mg/dL [facility] Glucose 119 70 - 199 mg/dL [facility] Comment: Interpretive Data Fasting glucose >/= [...] 2022. Calcium 8.7 8.5 - 10.3 mg/dL DENNIS Blood 09/15/2024 5:03 AM CDT 09/15/2024 5:25 AM CDT [employer] Galina DO LAB BLOOD ORDERABLES Vicki l Result Performing Organization Address [facility] Co de Phone Number [address] [place] [address] * POCT glucose (09/14/2024 11:34 PM CDT) Glucose, POC 149 70 - 199 mg/dL Blood 09/14/2024 11:3 4 PM CDT 09/14/2024 11:34 PM CDT [employer] DO LAB POCT ORDERABLES - DEV ICE Final Result Performing Organization Address [facility] Co de Phone Number [address] [address] * POCT glucose (09/14/2024 7:36 PM CDT) Glucose, POC 153 70 - 199 mg/dL Blood 09/14/2024 7:36 PM CDT 09/14/2024 7:36 PM CDT [employer] DO LAB POCT ORDERABLES - DEV ICE Final Result Performing Organization Address [facility] Co de Phone Number [address] [place] [address] * POCT glucose (09/14/2024 4:02 PM CDT) Glucose, POC 89 70 - 199 mg/dL Glucose comment 1 Use This Result DENNIS Glucose comment 2 RN/MD Notified DENNIS Blood 09/14/2024 4:02 PM CDT 09/14/2024 4:02 PM CDT [employer] Galina DO LAB POCT ORDERABLES - DEV ICE Final Result Performing Organization Address City/[facility] Co de Phone Number DENNIS [address] [place] [address] * POCT glucose (09/14/2024 11:36 AM CDT) Glucose, POC 108 70 - 199 mg/dL Glucose comment 1 Use This Result [facility] Glucose comment 2 RN/MD Notified DENNIS Blood 09/14/2024 11:3 6 AM CDT 09/14/2024 11:36 AM CDT [employer] Galina DO LAB POCT ORDERABLES - DEV ICE Final Result Performing Organization Address [facility] de Phone Number DENNIS [address] [place] [address] * (ABNORMAL) POCT glucose (09/14/2024 8:27 AM CDT) Pathologist [facility] Glucose, POC 65(L) 70 - 199 mg/dL Glucose comment 1 Use This Result [facility] Glucose comment 2 RN/MD Notified DENNIS Blood 09/14/2024 8:27 AM CDT 09/14/2024 8:27 AM CDT Jonnathan [employer] Galina DO LAB POCT ORDERABLES - DEV ICE Final Result Performing Organization Address [facility] Co de Phone Number DENNIS [address] [place] [address] * Hepatitis B surface antibody (immune status) Blood (09/14/2024 7:15 AM CDT) Pathologist [facility] HBsAb (immune status) Reactive Comment: Interpretive Data [...] HBsAb (immune status) index 136.0 mIUnits/m L [facility] Blood 09/14/2024 7:15 AM CDT 09/14/2024 7:18 AM CDT Tomer Marmolejo MD LAB MICROBIOLOGY - GENERAL OR DERABLES Final Result Performing Organization Address [facility] Co de Phone Number [address] [place] [address] * Hepatitis B Surface Antigen Blood (09/14/2024 7:15 AM CDT) Pathologist [facility] HepBsAg Nonreactive Nonreactive Blood 09/14/2024 7:15 AM CDT 09/14/2024 7:18 AM CDT Tomer Marmolejo MD LAB MICROBIOLOGY - GENERAL OR DERABLES Final Result Performing Organization Address [facility] Co de Phone Number [address] [place] [address] * (ABNORMAL) eGFR (09/14/2024 5:21 AM CDT) Pathologist [facility] eGFR [...] MD LAB BLOOD ORDERABLES Final Res ult [place] [id number] [facility] [place] [address] * (ABNORMAL) CBC without differential (09/14/2024 5:21 AM CDT) WBC 8.98 3.80 - 9.90 K/cumm Hgb 7.5(L) 11.9 - 15.5 g/dL [facility] Hct 24.6(L) 35.6 - 45.5 % [facility] Plt 256 150 - 400 K/cumm [facility] MPV 9.2 9.1 - 12.3 fL [facility] RBC 2.95(L) 3.90 - 5.20 M/cumm [facility] MCV 83.4 81.3 - 96.4 fL [facility] MCH 25.4(L) 27.1 - 33.3 pg [facility] MCHC 30.5(L) 32.3 - 35.7 g/dL [facility] RDW CV 16.1(H) 11.1 - 14.9 % [facility] RDW SD 48.2(H) 35.7 - 48.1 fL [facility] NRBC abs 0.00 0.00 - 0.01 K/cumm [facility] Blood 09/14/2024 5:21 AM CDT 09/14/2024 5:36 AM CDT us Herbert Dahl MD LAB BLOOD ORDERABLES Final Res ult Performing Organization Address [facility] Co de Phone Number DENNIS [address] [address] * (ABNORMAL) Phosphorus (09/14/2024 5:21 AM CDT) Pathologist [facility] Phosphorus, pl 6.5(H) 2.3 - 4.5 mg/dL Blood 09/14/2024 5:21 AM CDT 09/14/2024 5:36 AM CDT Herbert Dahl MD LAB BLOOD ORDERABLES Final Res ult Performing Organization Address [facility] Co de Phone Number DENNIS [address] [address] * Magnesium (09/14/2024 5:21 AM CDT) [facility] Magnesium 2.0 1.4 - 2.5 mg/dL Blood 09/14/2024 5:21 AM CDT 09/14/2024 5:36 AM CDT Herbert Dhal MD LAB BLOOD ORDERABLES Final Res ult Performing Organization Address [facility] de Phone Number YVONNE[address] [address] * (ABNORMAL) Hemoglobin A1c (09/14/2024 5:21 AM CDT) [facility] Hgb A1C 6.2(H) 4.0 - 5.6 % Estimated Average Glucose 131 mg/dL [facility] Comment: The ADA recommends reporting an estimated Average Glucose (eAG) with all Hemoglobin A1c results using the equation derived from a study of 507 normal and diabetic adults. Minority populations were underrepresented and children were not included. (Diabetes Care 31:9454-3958, 2008). The eAG is not equivalent to a fasting glucose. Blood 09/14/2024 5:21 AM CDT 09/14/2024 5:36 AM CDT Jonnathan Mojica DO LAB BLOOD ORDERABLES Vicki l Result Performing Organization Address [facility] Co de Phone Number [address] [address] * Vancomycin level random (09/14/2024 5:21 AM CDT) Vancomycin random 34.6 mcg/mL Comment: Interpretive Data No reference ranges have been established for random drug levels. Current Interpretive Data was last revised on 2020. Blood 09/14/2024 5:21 AM CDT 09/14/2024 5:36 AM CDT Herbert Dahl MD LAB BLOOD ORDERABLES Final Res ult Performing Organization Address [facility] de Phone Number [address] [address] * (ABNORMAL) Basic metabolic panel (09/14/2024 5:21 AM CDT) Pathologist [facility] Sodium 140 135 - 145 mmol/L Potassium, pl 4.4 3.3 - 4.9 mmol/L [facility] Comment:Hemolyzed; Potassium value may be falsely elevated by as much as 1.0 mmol/L. Suggest redraw and reanalysis. Chloride 106 97 - 110 mmol/L [facility] CO2 23 22 - 32 mmol/L [facility] Anion gap 11 2 - 15 mmol/L [facility] BUN 49(H) 6 - 25 mg/dL [facility] Creatinine 13.70(H) 0.60 - 1.10 mg/dL [facility] Glucose 90 70 - 199 mg/dL [facility] Comment: Delta - Results Reviewed Interpretive [...] Calcium 8.8 8.5 - 10.3 mg/dL DENNIS JOUSE Blood 09/14/2024 5:21 AM CDT 09/14/2024 5:36 AM CDT us Herbert Dahl MD LAB BLOOD ORDERABLES Final Res ult DENNIS JOSUE [address] [facility] [place] [address] * CT Hand Right WO Contrast (09/14/2024 2:34 AM CDT) Anatomical Region Laterality Modality Upper Extremities Right Computed Tomog thiago 09/14/2024 9:19 AM CDT Narrative 09/14/2024 9:48 AM CDT EXAM DESCRIPTION: CT HAND RIGHT WO CONTRAST REASON FOR STUDY: Soft tissue infection suspected, hand, xray done C/o right hand pain. Was in ED after hypoglycemic event at [facility], She states that upon waking up in [...] Nick Miller M.D. MJ T: Report ID: [id number] Reading Location: [place] [address] Procedure Note Nick Miller MD - 09/14/2024 EXAM DESCRIPTION: CT HAND RIGHT WO CONTRAST REASON FOR STUDY: Soft tissue infection suspected, hand, xray done C/o right hand pain. Was in ED after hypoglycemic event at [facility] [employer],She states that upon waking up in the [...] Nick Miller M.D. MJ T: Report ID: [id number] Reading Location: [id number] us Herbert Dahl MD IMG CT PROCEDURES Final Result * POCT glucose (09/14/2024 1:31 AM CDT) Pathologist [facility] Glucose, POC 94 70 - 199 mg/dL Blood 09/14/2024 1:31 AM CDT 09/14/2024 1:31 AM CDT us Herbert Dahl MD LAB POCT ORDERABLES - DEVICE F inal Result [facility] [address] [facility] [facility] [place] [address] * Blood culture Blood (09/13/2024 11:28 PM CDT) Pathologist [facility] Report Final Report: No growth Comment:Testing performed by : [facility], [address] [facility], [place] [address] Blood 09/13/2024 11:2 8 PM CDT 09/14/2024 [...] performance characteristics have been verified by the [facility] Microbiology Laboratory. For questions about this culture, contact the Microbiology Laboratory at [phone]. Interpretive data was last revised on 23. us Herbert Dahl MD LAB MICROBIOLOGY - GENERAL ORD ERABLES Final Result DENNIS [address] [facility] [place] [address] * Blood culture Blood (09/13/2024 11:28 PM CDT) Report Final Report: No growth Comment:Testing performed by : [facility], [address] [facility], [place]., [address] Blood 09/13/2024 11:2 8 PM CDT 09/14/2024 5:06 AM CDT Narrative DENNIS - 09/18/2024 7:01 AM CDT Collection->Peripheral [...] performance characteristics have been verified by the [facility] Microbiology Laboratory. For questions about this culture, contact the Microbiology Laboratory at [phone]. Interpretive data was last revised on 23. Herbert Dahl MD LAB MICROBIOLOGY - GENERAL ORD ERABLES Final Result Performing Organization Address City/[facility]/ZIP Co de Phone Number DENNIS [facility] [place] [address] * hCG, blood, quantitative (09/13/2024 10:46 PM CDT) [facility] hCG, quant <5.0 0.0 - 5.0 IUnits/L [...] LAB BLOOD ORDERABLES Final Res ult DENNIS [address] [place] [address] * POCT glucose (09/13/2024 9:24 PM CDT) Glucose, POC 125 70 - 199 mg/dL Blood 09/13/2024 9:24 PM CDT 09/13/2024 9:24 PM CDT us Herbert Dahl MD LAB POCT ORDERABLES - DEVICE F inal Result YVONNENER [address] [facility] [place] [address] * [place] CRITICAL CARE ILL/INJURED PATIENT INIT 30-74 MIN [...] Result called to and read back by [id number], DATE: 2024-09-13 16:35:35 BY: [id number] Interpretive Data For further hscTnT resources including the diagnostic algorithm and an aid in interpretation, copy and paste this link: https://nrl.testcatalog.org/show/hsTrop Current Interpretive Data last revised 2020. Trop T hs pct delta -1 % DENNIS Trop T hs interp Insignificant DENNIS Blood 09/13/2024 3:54 PM CDT 09/13/2024 3:57 PM CDT Henrry Macedo MD LAB BLOOD ORDERABLES Final Resu lt Performing Organization Address [facility] Co de Phone Number [address] [place] [address] * aPTT (09/13/2024 3:54 PM CDT) [facility] aPTT 25 22 - 37 sec Comment: Interpretive data aPTT test has not been evaluated for monitoring heparin therapy. The anti-Xa is the preferred test. Current interpretive data was last revised on 2019. Blood 09/13/2024 3:54 PM CDT 09/13/2024 3:57 PM CDT Adria Dominguez MD LAB BLOOD ORDERABLES Final Result Performing Organization Address [facility] Co de Phone Number [address] [place] [address] * Protime-INR (09/13/2024 3:54 PM CDT) Pathologist [facility] PT 14.20 12.00 - 14.60 sec INR [...] BLOOD ORDERABLES Final Result Performing Organization Address [facility] de Phone Number [address] [address] * (ABNORMAL) Troponin T high-sensitivity 2-hour (09/13/2024 1:48 PM CDT) [facility] Trop T hs 354(C) <=14 ng/L Comment: Critical Result called to and read back by [id number], DATE: 2024-09-13 14:41:09 BY: [id number] Interpretive Data For further hscTnT resources including the diagnostic algorithm and an aid in interpretation, copy and paste this link: https://nrl.testcatalog.org/show/hsTrop Current Interpretive Data last revised 2020. Trop T hs pct delta -1 % [facility] Trop T hs interp Insignificant [facility] Blood 09/13/2024 1:48 PM CDT 09/13/2024 2:03 PM CDT Henrry Macedo MD LAB BLOOD ORDERABLES Final Resu lt Performing Organization Address [facility] Co de Phone Number [facility] [address] [place] [address] * Influenza A/B, RSV, and COVID-19 PCR Nasopharyngeal (09/13/2024 1:48 PM CDT) [facility] COVID-19 RNA Negative Negative Influenza A RNA Negative Negative [facility] Influenza B RNA Negative Negative [facility] RSV RNA Negative Negative [facility] Comment: Interpretive data: Testing performed by [facility]. This test is performed using the [employer] Xpert Xpress CoV-2/Flu/RSV plus assay. This is a multiplex, real-time reverse transcriptase PCR assay intended for the qualitative detection of nucleic acid from SARS-CoV-2, influenza A, influenza B, and respiratory syncytial virus. This assay has been cleared by the [place] Food and Drug administration. The performance characteristics have been verified by the [facility]. Results must be considered in the clinical context, and a negative result does not rule out infection. Interpretive Data last revised 2023 Nasopharyngeal 09/13/2024 1: 48 PM CDT 09/13/2024 2:03 PM CDT Narrative [facility] - 09/13/2024 2:52 PM CDT Is the Patient experiencing symptoms consistent with COVID?->Unknown Adria Dominguez MD LAB MICROBIOLOGY - GENERAL ORDERABLES Final Result Performing Organization Address [facility] Co de Phone Number [place] [address] [facility] [place] [address] * Sepsis Lactate w/ Reflex (09/13/2024 1:48 PM CDT) Sepsis Lactate 0.9 0.7 - 2.0 mmol/L Blood 09/13/2024 1:48 PM CDT 09/13/2024 2:03 PM CDT Adria Dominguez MD LAB BLOOD ORDERABLES Final Result Performing Organization Address [facility] Co de Phone Number [place] [address] [place] [address] * XR Chest 1 Vw Portable (If [...] Nick Miller M.D. MJ T: Report ID: [id number] Reading Location: [place] [address] Procedure Note Nick Miller MD - 09/13/2024 [...] signed by Nick SCHMID T: Report ID: [id number] Reading Location: [id number] us Adria Dominguez MD IMG XR PROCEDURES [...] signed by Nick SCHMID T: Report ID: [id number] Reading Location: [id number] Procedure Note Nick Miller MD - 09/13/2024 [...] Nick Miller M.D. MJ T: Report ID: [id number] Reading Location: [id number] us Adria Dominguez MD IMG XR PROCEDURES Final Re sult * ECG 12 lead (09/13/2024 11:59 AM CDT) Ventricular Rate EKG/Min 77 BPM [facility] Atrial Rate 77 BPM [facility] VT-Interval (MSEC) 142 ms [facility] QRS-Interval (MSEC) 72 ms [facility] QT-Interval (MSEC) 400 ms [facility] QTc 452 ms [facility] P [place] 60 degrees [facility] R [place] 16 degrees [facility] T [place] 102 degrees [facility] Diagnosis Normal sinus rhythm Septal infarct (cited on or before 06-APR-2024) Abnormal ECG When compared with ECG of 06-APR-2024 08:18, Nonspecific T wave abnormality now evident in Lateral leads Confirmed by TITI MONGE M.D. ([id number]) on 09/14/2024 7:54:42 AM [facility] 09/13/2024 11:5 9 AM CDT 09/14/2024 7:54 AM CDT us Adria Dominguez MD ECG ORDERABLES Final Resu lt [facility] * (ABNORMAL) Troponin T high-sensitivity series (baseline, 2hr, 4hr, 6hr) (09/13/2024 11:50 AM CDT) Trop T hs 358(C) <=14 ng/L Comment: Critical Result called to and read back by [id number], DATE: 2024-09-13 12:26:30 BY: [id number] Interpretive Data For further hscTnT resources including the diagnostic algorithm and an aid in interpretation, copy and paste this link: https://nrl.testcatalog.org/show/hsTrop Current Interpretive Data last revised 2020. Blood 09/13/2024 11:5 0 AM CDT 09/13/2024 11:54 AM CDT us Adria Dominguez MD LAB BLOOD ORDERABLES Final Result DENNIS [address] [place] [address] * (ABNORMAL) eGFR (09/13/2024 11:50 AM CDT) [...] Dominguez MD LAB BLOOD ORDERABLES Final Result [facility] [address] [facility] [place] [address] * (ABNORMAL) Differential, auto (09/13/2024 11:50 AM CDT) Neutrophil abs 6.89(H) 1.50 - 6.50 K/cumm Imm gran abs 0.04 0.00 - 0.10 K/cumm [facility] Lymphocyte abs 2.47 0.80 - 3.30 K/cumm [facility] Monocyte abs 0.62 0.20 - 0.80 K/cumm [facility] Eosinophil abs 0.44 0.00 - 0.50 K/cumm [facility] Basophil abs 0.08 0.00 - 0.10 K/cumm [facility] Neutrophil pct 65.3 % [facility] Comment: Interpretive Data Percent cell count reference ranges are not reported, since discordance with absolute values may lead to misinterpretation of CBC data. Current Interpretive Data was last revised on 2017. Imm gran pct 0.4 % [facility] Comment: Interpretive Data Percent cell count reference ranges are not reported, since discordance with absolute values may lead to misinterpretation of CBC data. Current Interpretive Data was last revised on 2017. Lymphocyte pct 23.4 % [facility] Comment: Interpretive Data Percent cell count reference ranges are not reported, since discordance with absolute values may lead to misinterpretation of CBC data. Current Interpretive Data was last revised on 2017. Monocyte pct 5.9 % [facility] Comment: Interpretive Data Percent cell count reference ranges are not reported, since discordance with absolute values may lead to misinterpretation of CBC data. Current Interpretive Data was last revised on 2017. Eosinophil pct 4.2 % [facility] Comment: Interpretive Data Percent cell count reference ranges are not reported, since discordance with absolute values may lead to misinterpretation of CBC data. Current Interpretive Data was last revised on 2017. Basophil pct 0.8 % DENNIS Comment: Interpretive Data Percent cell count reference ranges are not reported, since discordance with absolute values may lead to misinterpretation of CBC data. Current Interpretive Data was last revised on 2017. Blood 09/13/2024 11:5 0 AM CDT 09/13/2024 11:54 AM CDT us Adria Dominguez MD LAB BLOOD ORDERABLES Final Result DENNIS [address] [facility] [place] [address] * (ABNORMAL) Pro B-type natriuretic peptide (09/13/2024 [...] BLOOD ORDERABLES Final Result Performing Organization Address City/[facility]/ZIP Co de Phone Number DENNIS [address] [place] [address] * (ABNORMAL) CBC with auto differential (09/13/2024 11:50 AM CDT) WBC 10.54(H) 3.80 - 9.90 K/cumm Hgb 8.3(L) 11.9 - 15.5 g/dL [facility] Hct 27.2(L) 35.6 - 45.5 % [facility] Plt 287 150 - 400 K/cumm [facility] MPV 9.8 9.1 - 12.3 fL [facility] RBC 3.26(L) 3.90 - 5.20 M/cumm [facility] MCV 83.4 81.3 - 96.4 fL [facility] MCH 25.5(L) 27.1 - 33.3 pg [facility] MCHC 30.5(L) 32.3 - 35.7 g/dL [facility] RDW CV 16.2(H) 11.1 - 14.9 % [facility] RDW SD 49.4(H) 35.7 - 48.1 fL [facility] NRBC abs 0.00 0.00 - 0.01 K/cumm [facility] Blood 09/13/2024 11:5 0 AM CDT 09/13/2024 11:54 AM CDT Adria Dominguez MD LAB BLOOD ORDERABLES Final Result DENNIS [address] [place] [address] * (ABNORMAL) Comprehensive metabolic panel (09/13/2024 11:50 AM CDT) Sodium 140 135 - 145 mmol/L Potassium, pl 4.6 3.3 - 4.9 mmol/L [facility] Chloride 103 97 - 110 mmol/L [facility] CO2 25 22 - 32 mmol/L [facility] Anion gap 12 2 - 15 mmol/L [facility] BUN 48(H) 6 - 25 mg/dL [facility] Creatinine 12.70(H) 0.60 - 1.10 mg/dL [facility] Glucose 216(H) 70 - 199 mg/dL [facility] Comment: Interpretive Data Fasting glucose >/= [...] 2022. Calcium 8.9 8.5 - 10.3 mg/dL [facility] Bilirubin, total 0.2 0.1 - 1.2 mg/dL [facility] Protein, pl 6.4(L) 6.5 - 8.5 g/dL [facility] Albumin 2.8(L) 3.5 - 5.0 g/dL [facility] Alk phos 274(H) 40 - 130 Units/L [facility] ALT 31 7 - 45 Units/L [facility] AST 30 10 - 45 Units/L [facility] Blood 09/13/2024 11:5 0 AM CDT 09/13/2024 11:54 AM CDT us Adria Dominguez MD LAB BLOOD ORDERABLES Final Result [facility] [address] [place] [address] * Lipid panel (06/21/2024 7:20 PM CDT) [...] revised on 2017. Triglycerides 112 <=149 mg/dL [facility] Comment: Interpretive Data Ages < [...] revised on 2017. HDL 56 >=40 mg/dL [facility] Comment: Interpretive Data Ages < [...] on 2017. LDL, calculated 62 <=129 mg/dL [facility] Comment: Interpretive Data Ages < [...] revised on 2023. Non-HDL Cholesterol 82 mg/dL [facility] Comment: Interpretive Data Ages < [...] last revised on 2017. Chol/HDL ratio 2 [facility] Blood 06/21/2024 7:20 PM CDT 06/21/2024 7:40 PM CDT Narrative [facility] - 06/22/2024 8:42 AM CDT Reflex us Brandan Orr MD LAB BLOOD ORDERABLES Vicki lovelace Result [facility] Department [place] [address] * Hepatitis C antibody Blood (02/16/2024 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) Hep C Ab Nonreactive Nonreactive Comment:Antibodies to HCV no t detected. Does NOT exclude the possibility of recent exposure to HCV. Current interpretive data was last revised on 21 Blood 02/16/2024 11:3 4 AM SKIMMER SCOOP OPERATOR 02/16/2024 11:45 AM SKIMMER SCOOP OPERATOR us Tonya Hammonds MD LAB MICROBIOLOGY - GENERAL ORDERABLES Final Result DENNIS [facility] [place] [address] * Colonoscopy (07/21/2023 10:23 AM CDT) Anatomical Region Laterality Modality Other Narrative Procedure Note Haritha Stover MD - 07/21/2023 10:23 AM CDT [facility] Patient Name: Bakari Smith Procedure Date: 07/21/2023 10:23 AM Date of : 1980 Admit Type: Outpatient Age: 43 Gender: Female Attending MD: Haritha Stover M.D. Room: [facility] ENDOSCOPY ROOM 02 Note Status: Finalized [...] The scope was passed under direct vision.The [id number] Colonoscope was introducedthrough the anus and advanced to the the cecum, identifiedby appendiceal orifice and ileocecal valve. The colonoscopy was performed without difficulty. The patient tolerated the procedure well. The qualityof the bowel preparation was evaluated using the BBPS (Festus Bowel Preparation Scale) with scores of:Right Colon [...] On: 07/21/2023 10:23 AM Recognized by the [employer] for promoting quality in endoscopy us Haritha Stover MD ENDOSCOPY PROCEDURES Final Res ult * HM MAMMOGRAPHY (06/04/2021) Impressions Rashida Schneider - 06/04/2021 IMPRESSION: 1. Benign mammogram. READ BY: NINO BAJWA MD 06/05/2021 Historical Provider HEALTH MAINTENANCE Final Result from Last 3 Months or Most Recently Relevant to Health Maintenance
--- OUTSIDE RECORDS SUMMARY | 2024-12-14 08:49 | XMS_ITS | Clinical Summary ---
Author Organization [facility] Address [address] [place] [address] Phone Care Team Providers Care Rotary Drier Feeder Name Role Phone Jessie Dickson MD Primary Care Provider [phone] Allergies Active Allergy Reactions Criticality Noted Date [...] times daily. 9 Active ergocalciferol (VITAMIN D2) 33579 units capsule TK 1 C PO Q [...] the skin Active Blood Glucose Monitoring Suppl (ONOFFMIX (?) Verio Flex System) w/Device kit USE DIRECTED [...] Insurance MEDICAID - [place] MEDICARE Care Teams Rotary Drier Feeder Relationship Specialty Start Date End Date Jessie Dickson MD [facility] [address], [place] [address] PCP - General 05/31/18
--- OUTSIDE RECORDS SUMMARY | 2024-12-14 08:51 | XMS_ITS | Encounter Summary ---
Author Organization [facility] Address Pending sale to [facility] [place] [address] Care Team Providers Care Miner Operator Name Role Phone Sulema Lennon NP Primary Care Provider [phone] Encounter Details Date Type Department Care Team (Late st Contact Info) Description 10/21/2024 Prep for Procedure [facility], [facility] [address] [place] [address] Raulito Valdez MD [facility]. [facility] [address] [place], [place] [id number] Social History Tobacco Use Types Packs/Day Years Used Date Smoking Tobacco: Never Alcohol Use Standard Drinks/Week Comments Not Currently 0 (1 standard drink = 0.6 oz pur e alcohol) [facility] Utilities Answer Date Recorded In the past 12 months has [facility] [place], gas, oil, or water [employer] threatened to shut off services in your [...] any time in the past 12 m [facility], were you homeless or living in a fdc (including now)? 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
--- OUTSIDE RECORDS SUMMARY | 2024-12-14 08:51 | XMS_ITS | Clinical Summary ---
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 Name Role Phone Almita Rizzo RN Unavailable [phone] Beth Fernandez MD Unavailable [phone] Maday Oviedo MD Unavailable [phone] Tomasz Scott DO Unavailable [phone] Meir Nazario MD Unavailable [phone] Sulema Lennon NP Primary Care Provider [phone] Allergies Active Allergy Reactions Criticality Noted Date [...] (04/10/2022): Added automatically from request for surgery [id number] Hypertension 2021 ESRD (end stage renal disease) [...] Description 11/18/2024 8:00 PM CDT Social Work [facility] [address], 8th Floor, [place] [address] 11/17/2024 Telephone [facility] [address] Mailstop 90-95-777 [place] [address] Hien Mireles 11/16/2024 Documentation [facility] [address] [facility] [address] Mailstop [phone] [place] [address] Almita Rizzo RN Waitlist Status Update 11/16/2024 Telephone [facility] [address] [facility] 34[address] Mailstop 10-72-[address] [place] [address] Hine Mireles 11/16/2024 Documentation [facility] [address] [facility] 340 Mailstop 14-13-[address] [place] [address] Almita Rizzo RN Waitlist Maintenance 11/16/2024 Documentation [facility] [address] [facility] 340 Mailstop -88-[address] [place] [address] Almita Rizzo RN Waitlist Maintenance 11/16/2024 Telephone [facility] [address] [facility] [address] Mailop 59-78-[address] [place] [address] Almita Rizzo RN Waitlist Maintenance 11/04/2024 Telephone [facility]ney [address] [place] [address] [place] [address]-98-[address] [place] [address] Almita Rizzo RN Waitlist Maintenance 10/25/2024 E-Consult [facility] PATHOLOGY [address] [place] [phone] Jonathan Brennan MD PhD ESRD (end stage renal disease) (Primary Dx); Pre-transplant evaluation for kidney transplant 10/21/2024 Documentation [facility] [address] [facility] 340 [place] [address]-15-[address] [place] [address] Vanda Bruce 10/21/2024 Documentation [facility] [address] [facility] 340 Mailstop 71-50-[address] [place] [address] Rizzo, Almita L., RN Waitlist Status Update (ON HOLD) 10/21/2024 Telephone [facility] [address] Mailstop 71-03-523 [place] [address] Val Umaña, DELFINO After Hours; Transplant Organ Offer 10/20/2024 Orders Only [facility] [address] [place] [address] Sherwin Bhat MD Awaiting organ transplant status 10/20/2024 Orders Only [facility] [address] Mailstop 78-50-975 [place] [address] Regina Hernandez RN Awaiting organ transplant status (Primary Dx) 10/20/2024 Documentation [facility] [address] [place] [address] Clayton Robles MD Transfer Notification 10/19/2024 Orders Only [facility] [address] [facility] 12th [place] [address] [place] [address] Sherwin Bhat MD 10/18/2024 Documentation [facility] [address] Mailstop 02-18-660 [place] [address] Almita Rizzo RN Waitlist Maintenance 10/06/2024 4:32 PM CDT - 10/06/2024 9:26 PM CDT Emergency [address] [address] Stevie Briggs DO Inguinal strain, right, initial encounter (Primary Dx); Pain of right hand; Secondary hypertension Discharge Disposition: Discharge to home or self care 09/26/2024 10:00 AM CDT - 09/26/2024 11:59 PM CDT Hospital Encounter [address] [address] Pre-kidney transplant, patient on transplant list; ESRD (end stage renal disease) Discharge Disposition: Discharge to home or self care 09/13/2024 12:51 PM CDT - 09/15/2024 2:00 PM CDT Hospital Encounter [place] [id number] Adria Dominguez MD Medavaram, Atul, MD Kruse, [...] Tobacco: Never Tobacco Cessation:Counseling Given: Not Answered [facility] Utilities Answer Date Recorded In [...] often do you attend chur ch or faith services? More than 4 times per year 09/14/2024 Do you belong to any clubs o r organizations such as advent groups, unions, fraternal or athletic groups, or [...] were you homeless or living in a detention (including now)? No 09/14/2024 Personal Safety Answer Date Recorded Have you ever been in or are you currently in a harmful physical or emotional relationship or is someone making you feel afraid or unsafe? 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 Catheter N/A: Abdomen [employer] 07/01/2025 [id number] / N/A / [id number] Description:Peritoneal Dialy sis Catheter, Curl Cath, 2 Cuffs Graft Vasc 45cm 4-6mm [place] Acuseal Eptfe 3 Layer Kink Rst - [id number] - [id number] Implanted:Qty : 1 on 05/08/2022 by Uche Katz MD at [facility] Graft Left: Arm Wl [employer] [id number] 05/21/2024 [id number] / [id number] / 00 Procedures Procedure Name Priority Date/Time [...] DEVICE Routine 09/13/2024 9 :24 PM CDT [facility] ILL/INJURED PATIENT INIT 30-74 MIN [...] HEPATITIS C ANTIBODY Routine 02/16/2024 11:34 AM FILM PROCESS OPERATOR Pre-kidney transplant, patient on transplant list [...] signed by Albert ORNELAS T: Report ID: [id number] Reading Location: [id number] Procedure Note Albert Lopes MD - 10/06/2024 [...] signed by Albert ORNELAS T: Report ID: [id number] Reading Location: [id number] Jackie RAPHAEL IMG XR PROCEDURES Final Resul [...] Albert Lopes M.D. KR T: Report ID: [id number] Reading Location: [id number] Procedure Note Albert Lopes MD - 10/06/2024 [...] Albert Lopes M.D. KR T: Report ID: [id number] Reading Location: [place] [address] Jackie RAPHAEL IMG XR PROCEDURES Final Resul [...] RAPHAEL LAB BLOOD ORDERABLES Final Re sult [facility] [address] [facility] Department of Laboratories [place], [place] [id number] * Differential, auto (10/06/2024 2:27 PM CDT) Pathologist [facility] Neutrophil abs 6.30 1.50 - 6.50 K/cumm Imm gran abs 0.04 0.00 - 0.10 K/cumm [facility] Lymphocyte abs 2.11 0.80 - 3.30 K/cumm [facility] Monocyte abs 0.68 0.20 - 0.80 K/cumm [facility] Eosinophil abs 0.45 0.00 - 0.50 K/cumm [facility] Basophil abs 0.05 0.00 - 0.10 K/cumm [facility] Neutrophil pct 65.4 % [facility] Comment: Interpretive Data Percent cell count reference ranges are not reported, since discordance with absolute values may lead to misinterpretation of CBC data. Current Interpretive Data was last revised on 2017. Imm gran pct 0.4 % [facility] Comment: Interpretive Data Percent cell count reference ranges are not reported, since discordance with absolute values may lead to misinterpretation of CBC data. Current Interpretive Data was last revised on 2017. Lymphocyte pct 21.9 % [facility] Comment: Interpretive Data Percent cell count reference ranges are not reported, since discordance with absolute values may lead to misinterpretation of CBC data. Current Interpretive Data was last revised on 2017. Monocyte pct 7.1 % [facility] Comment: Interpretive Data Percent cell count reference ranges are not reported, since discordance with absolute values may lead to misinterpretation of CBC data. Current Interpretive Data was last revised on 2017. Eosinophil pct 4.7 % [facility] Comment: Interpretive Data Percent cell count reference ranges are not reported, since discordance with absolute values may lead to misinterpretation of CBC data. Current Interpretive Data was last revised on 2017. Basophil pct 0.5 % [facility] Comment: Interpretive Data Percent cell count reference ranges are not reported, since discordance with absolute values may lead to misinterpretation of CBC data. Current Interpretive Data was last revised on 2017. Blood 10/06/2024 2:27 PM CDT 10/06/2024 2:30 PM CDT Jackie RAPHAEL LAB BLOOD ORDERABLES Final Re sult Performing Organization Address [facility] Co de Phone Number [place] [phone] [facility] [place] [address] * (ABNORMAL) CBC with auto differential (10/06/2024 2:27 PM CDT) [facility] WBC 9.63 3.80 - 9.90 K/cumm Hgb 7.5(L) 11.9 - 15.5 g/dL [facility] Hct 24.4(L) 35.6 - 45.5 % [facility] Plt 218 150 - 400 K/cumm [facility] MPV 10.6 9.1 - 12.3 fL [facility] RBC 2.93(L) 3.90 - 5.20 M/cumm [facility] MCV 83.3 81.3 - 96.4 fL [facility] MCH 25.6(L) 27.1 - 33.3 pg [facility] MCHC 30.7(L) 32.3 - 35.7 g/dL [facility] RDW CV 16.9(H) 11.1 - 14.9 % [facility] RDW SD 50.4(H) 35.7 - 48.1 fL [facility] NRBC abs 0.00 0.00 - 0.01 K/cumm [facility] Blood 10/06/2024 2:27 PM CDT 10/06/2024 2:30 PM CDT us Jackie RAPHAEL LAB BLOOD ORDERABLES Final Re sult Performing Organization Address City/[facility]/ZIP Co de Phone Number [place] [phone] [facility] [place] [address] * (ABNORMAL) Comprehensive metabolic panel (10/06/2024 2:27 PM CDT) [facility] Sodium 138 135 - 145 mmol/L Potassium, pl 4.1 3.3 - 4.9 mmol/L [facility] Chloride 99 97 - 110 mmol/L [facility] CO2 24 22 - 32 mmol/L [facility] Anion gap 15 2 - 15 mmol/L [facility] BUN 49(H) 6 - 25 mg/dL [facility] Creatinine 14.10(H) 0.60 - 1.10 mg/dL [facility] Glucose 248(H) 70 - 199 mg/dL [facility] Comment: Interpretive Data Fasting glucose [...] Calcium 8.6 8.5 - 10.3 mg/dL [facility] Bilirubin, total 0.2 0.1 - 1.2 mg/dL [facility] Protein, pl 6.4(L) 6.5 - 8.5 g/dL [facility] Albumin 2.8(L) 3.5 - 5.0 g/dL [facility] Alk phos 321(H) 40 - 130 Units/L [facility] ALT 55(H) 7 - 45 Units/L [facility] AST 39 10 - 45 Units/L [facility] Blood 10/06/2024 2:27 PM CDT 10/06/2024 2:30 PM CDT Jackie RAPHAEL LAB BLOOD ORDERABLES Final Re sult [facility] [address] [facility] Department [place] [address] * HLA Crossmatch Report (09/26/2024 10:00 AM [...] 10:0 0 AM CDT Narrative HISTOTRAC - 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 Single Antigen Antibody Screen ordered. us Miriam Garner MD LAB BLOOD ORDERAB LES Final Result Performing Organization Address City/[facility]/ZIP Co de Phone Number HISTOTRAC * [...] a method developed and validated by the [facility] HLA laboratory based on an FDA-approved IVD kit (LABScreen Single-Antigen, [employer], [place], [place]). All patient serum samples are pretreated with EDTA before the screen to prevent complement interference. Additional serum treatments, such as adsorption and DTT treatment, may be performed as indicated. Interpretive comments: Low risk: MFI [id number]. Moderate risk: MFI [id number]. Increased risk: MFI >/= 5000. The presence [...] antigens to avoid. Testing performed at the [facility], [facility], 5th floor, [place], [address]. [facility] # [id number]. Amber Berry, Ph.D., Underground Conduit Installer, HLA Laboratory Jonathan Brennan M.D., Ph.D., [place] [employer] Helper, HLA Laboratory Rehana Alarcon, Ph.D., [place] [employer], [facility] Current methodology and interpretive comments last revised on 03/20/2022. Miriam Garner MD LAB BLOOD ORDERAB LES Final Result Performing Organization Address City/[facility]/ZIP Co de Phone Number HISTOTRAC * POCT glucose (09/15/2024 11:26 AM CDT) Glucose, POC 128 70 - 199 mg/dL Glucose comment 1 RN/MD Notified [facility] Blood 09/15/2024 11:2 6 AM CDT 09/15/2024 11:26 AM CDT Jonnathan Mojica DO LAB POCT ORDERABLES - DEV ICE Final Result Performing Organization Address City/[facility]/ZIP Co de Phone Number [facility] [address] [facility] Department [place] [address] * POCT glucose (09/15/2024 7:41 AM CDT) Glucose, POC 88 70 - 199 mg/dL Glucose comment 1 Use This Result [facility] Glucose comment 2 RN/MD Notified DENNIS Blood 09/15/2024 7:41 AM CDT 09/15/2024 7:41 AM CDT Sunglass DO LAB POCT ORDERABLES - DEV ICE Final Result Performing Organization Address [facility] Co de Phone Number DENNIS [address] [place] [address] * (ABNORMAL) eGFR (09/15/2024 5:03 AM CDT) Pathologist [facility] eGFR 3(L) >=60 mL/min/1. 73 m2 Comment: [...] AM CDT 09/15/2024 5:25 AM CDT Jonnathan Achaogen DO LAB BLOOD ORDERABLES Vicki l Result Performing Organization Address City/[facility]/ZIP Co de Phone Number DENNIS [address] [place] [address] * Differential, auto (09/15/2024 5:03 AM CDT) [facility] Neutrophil abs 4.75 1.50 - 6.50 K/cumm Imm gran abs 0.03 0.00 - 0.10 K/cumm [facility] Lymphocyte abs 2.41 0.80 - 3.30 K/cumm [facility] Monocyte abs 0.57 0.20 - 0.80 K/cumm [facility] Eosinophil abs 0.43 0.00 - 0.50 K/cumm [facility] Basophil abs 0.04 0.00 - 0.10 K/cumm [facility] Neutrophil pct 57.7 % [facility] Comment: Interpretive Data Percent cell count reference ranges are not reported, since discordance with absolute values may lead to misinterpretation of CBC data. Current Interpretive Data was last revised on 2017. Imm gran pct 0.4 % [facility] Comment: Interpretive Data Percent cell count reference ranges are not reported, since discordance with absolute values may lead to misinterpretation of CBC data. Current Interpretive Data was last revised on 2017. Lymphocyte pct 29.3 % [facility] Comment: Interpretive Data Percent cell count reference ranges are not reported, since discordance with absolute values may lead to misinterpretation of CBC data. Current Interpretive Data was last revised on 2017. Monocyte pct 6.9 % [facility] Comment: Interpretive Data Percent cell count reference ranges are not reported, since discordance with absolute values may lead to misinterpretation of CBC data. Current Interpretive Data was last revised on 2017. Eosinophil pct 5.2 % [facility] Comment: Interpretive Data Percent cell count reference ranges are not reported, since discordance with absolute values may lead to misinterpretation of CBC data. Current Interpretive Data was last revised on 2017. Basophil pct 0.5 % [facility] Comment: Interpretive Data Percent cell count reference ranges are not reported, since discordance with absolute values may lead to misinterpretation of CBC data. Current Interpretive Data was last revised on 2017. Blood 09/15/2024 5:03 AM CDT 09/15/2024 5:25 AM CDT us Jonnathan Mojica DO LAB BLOOD ORDERABLES Vicki l Result DENNIS JOSUE [address] [facility] Department [place] [address] * (ABNORMAL) CBC with auto differential (09/15/2024 5:03 AM CDT) WBC 8.23 3.80 - 9.90 K/cumm Hgb 7.4(L) 11.9 - 15.5 g/dL [facility] Hct 24.4(L) 35.6 - 45.5 % [facility] Plt 269 150 - 400 K/cumm [facility] MPV 9.6 9.1 - 12.3 fL [facility] RBC 2.93(L) 3.90 - 5.20 M/cumm [facility] MCV 83.3 81.3 - 96.4 fL [facility] MCH 25.3(L) 27.1 - 33.3 pg [facility] MCHC 30.3(L) 32.3 - 35.7 g/dL [facility] RDW CV 16.1(H) 11.1 - 14.9 % [facility] RDW SD 48.9(H) 35.7 - 48.1 fL [facility] NRBC abs 0.00 0.00 - 0.01 K/cumm [facility] Blood 09/15/2024 5:03 AM CDT 09/15/2024 5:25 AM CDT [facility] LAB BLOOD ORDERABLES Vicki l Result Performing Organization Address City/[facility]/ZIP Co de Phone Number [address] [place] [address] * (ABNORMAL) Erythrocyte sedimentation rate (09/15/2024 5:03 AM CDT) [facility] Erythrocyte sedimentation rate 52(H) 1 - 20 mm/hr Blood 09/15/2024 5:03 AM CDT 09/15/2024 5:25 AM CDT [facility] LAB BLOOD ORDERABLES Vicki l Result Performing Organization Address City/[facility]/ZIP Co de Phone Number [address] [place] [address] * (ABNORMAL) CRP (acute phase) (09/15/2024 5:03 AM CDT) Pathologist [facility] CRP 12.1(H) <=10.0 mg/L Blood 09/15/2024 5:03 AM CDT 09/15/2024 5:25 AM CDT Jonnathan Mojica DO LAB BLOOD ORDERABLES Vicki l Result Performing Organization Address [facility] Co de Phone Number DENNIS [address] [place] [address] * (ABNORMAL) Phosphorus (09/15/2024 5:03 AM CDT) [facility] Phosphorus, pl 6.8(H) 2.3 - 4.5 mg/dL Blood 09/15/2024 5:03 AM CDT 09/15/2024 5:25 AM CDT us Herbert Dahl MD LAB BLOOD ORDERABLES Final Res ult Performing Organization Address [facility] de Phone Number [address] [place] [address] * Magnesium (09/15/2024 5:03 AM CDT) [facility] Magnesium 1.9 1.4 - 2.5 mg/dL Blood 09/15/2024 5:03 AM CDT 09/15/2024 5:25 AM CDT Herbert Dahl MD LAB BLOOD ORDERABLES Final Res ult Performing Organization Address [facility] Co de Phone Number [address] [place] [address] * (ABNORMAL) Basic metabolic panel (09/15/2024 5:03 AM CDT) [facility] Sodium 138 135 - 145 mmol/L Potassium, pl 4.2 3.3 - 4.9 mmol/L [facility] Chloride 103 97 - 110 mmol/L [facility] CO2 24 22 - 32 mmol/L [facility] Anion gap 11 2 - 15 mmol/L [facility] BUN 48(H) 6 - 25 mg/dL [facility] Creatinine 13.80(H) 0.60 - 1.10 mg/dL [facility] Glucose 119 70 - 199 mg/dL [facility] Comment: Interpretive Data Fasting glucose [...] 2022. Calcium 8.7 8.5 - 10.3 mg/dL [facility] Blood 09/15/2024 5:03 AM CDT 09/15/2024 5:25 AM CDT Jonnathan Achaogen DO LAB BLOOD ORDERABLES Vicki l Result Performing Organization Address City/[facility]/ZIP Co de Phone Number [address] [place] [address] * POCT glucose (09/14/2024 11:34 PM CDT) Glucose, POC 149 70 - 199 mg/dL Blood 09/14/2024 11:3 4 PM CDT 09/14/2024 11:34 PM CDT [facility] POCT ORDERABLES - DEV ICE Final Result Performing Organization Address [facility]/ZIP Co de Phone Number [address] [place] [address] * POCT glucose (09/14/2024 7:36 PM CDT) Glucose, POC 153 70 - 199 mg/dL Blood 09/14/2024 7:36 PM CDT 09/14/2024 7:36 PM CDT Jonnathantravis Daigle Galina DO LAB POCT ORDERABLES - DEV ICE Final Result Performing Organization Address [facility] Co de Phone Number DENNIS [address] [place] [address] * POCT glucose (09/14/2024 4:02 PM CDT) Glucose, POC 89 70 - 199 mg/dL Glucose comment 1 Use This Result DENNIS Glucose comment 2 RN/MD Notified DENNIS Blood 09/14/2024 4:02 PM CDT 09/14/2024 4:02 PM CDT Jonnathan Daigle Galina DO LAB POCT ORDERABLES - DEV ICE Final Result Performing Organization Address [facility] Co de Phone Number DENNIS [address] [place] [address] * POCT glucose (09/14/2024 11:36 AM CDT) Glucose, POC 108 70 - 199 mg/dL Glucose comment 1 Use This Result [facility]NIS Glucose comment 2 RN/MD Notified DENNIS Blood 09/14/2024 11:3 6 AM CDT 09/14/2024 11:36 AM CDT Jonnathan Daigle Galina DO LAB POCT ORDERABLES - DEV ICE Final Result Performing Organization Address [facility] Co de Phone Number DENNIS [address] [place] [address] * (ABNORMAL) POCT glucose (09/14/2024 8:27 AM CDT) Glucose, POC 65(L) 70 - 199 mg/dL Glucose comment 1 Use This Result DENNIS Glucose comment 2 RN/MD Notified DENNIS Blood 09/14/2024 8:27 AM CDT 09/14/2024 8:27 AM CDT Jonnathan Pilo Galina LAB POCT ORDERABLES - DEV ICE Final Result Performing Organization Address [facility] Co de Phone Number YVONNE[address] [place] [address] * Hepatitis B surface antibody (immune status) [...] OR DERABLES Final Result Performing Organization Address [facility] de Phone Number YVONNE[address] [place] [address] * Hepatitis B Surface Antigen Blood (09/14/2024 7:15 AM CDT) HepBsAg Nonreactive Nonreactive Blood 09/14/2024 7:15 AM CDT 09/14/2024 7:18 AM CDT Tomer Marmolejo MD LAB MICROBIOLOGY - GENERAL OR DERABLES Final Result Performing Organization Address City/[facility] Co de Phone Number YVONNE[address] [place] [address] * (ABNORMAL) eGFR (09/14/2024 5:21 AM CDT) Pathologist [facility] eGFR 3(L) >=60 mL/min/1. 73 m2 Comment: [...] LAB BLOOD ORDERABLES Final Res ult [facility] [address] [facility] Department [place] [address] * (ABNORMAL) CBC without differential (09/14/2024 5:21 AM CDT) WBC 8.98 3.80 - 9.90 K/cumm Hgb 7.5(L) 11.9 - 15.5 g/dL [facility] Hct 24.6(L) 35.6 - 45.5 % [facility] Plt 256 150 - 400 K/cumm [facility] MPV 9.2 9.1 - 12.3 fL [facility] RBC 2.95(L) 3.90 - 5.20 M/cumm [facility] MCV 83.4 81.3 - 96.4 fL [facility] MCH 25.4(L) 27.1 - 33.3 pg [facility] MCHC 30.5(L) 32.3 - 35.7 g/dL [facility] [facility] R[facility] CV 16.1(H) 11.1 - 14.9 % [facility] RDW SD 48.2(H) 35.7 - 48.1 fL DENNIS NRBC abs 0.00 0.00 - 0.01 K/cumm DENNIS Blood 09/14/2024 5:21 AM CDT 09/14/2024 5:36 AM CDT us Herbert Dahl MD LAB BLOOD ORDERABLES Final Res ult Performing Organization Address City/[facility] Co de Phone Number DENINS [address] [place] [address] * (ABNORMAL) Phosphorus (09/14/2024 5:21 AM CDT) Phosphorus, pl 6.5(H) 2.3 - 4.5 mg/dL Blood 09/14/2024 5:21 AM CDT 09/14/2024 5:36 AM CDT us Herbert Dahl MD LAB BLOOD ORDERABLES Final Res ult Performing Organization Address [facility] de Phone Number YVONNE[address] [place] [address] * Magnesium (09/14/2024 5:21 AM CDT) Magnesium 2.0 1.4 - 2.5 mg/dL Blood 09/14/2024 5:21 AM CDT 09/14/2024 5:36 AM CDT us Herbert Dahl MD LAB BLOOD ORDERABLES Final Res ult Performing Organization Address [facility] Co de Phone Number YVONNE[address] [place] [address] * (ABNORMAL) Hemoglobin A1c (09/14/2024 5:21 AM CDT) Hgb A1C 6.2(H) 4.0 - 5.6 % Estimated Average Glucose 131 mg/dL DENNIS Comment: The ADA recommends reporting an estimated Average Glucose (eAG) with all Hemoglobin A1c results using the equation derived from a study of 507 normal and diabetic adults. Minority populations were underrepresented and children were not included. (Diabetes Care 31:2495-8827, 2008). The eAG is not equivalent to a fasting glucose. Blood 09/14/2024 5:21 AM CDT 09/14/2024 5:36 AM CDT us Jonnathan Mojica DO LAB BLOOD ORDERABLES Vicki l Result Performing Organization Address [facility] Co de Phone Number [address] [address] * Vancomycin level random (09/14/2024 5:21 AM CDT) Pathologist [facility] Vancomycin random 34.6 mcg/mL Comment: Interpretive Data No reference ranges have been established for random drug levels. Current Interpretive Data was last revised on 2020. Blood 09/14/2024 5:21 AM CDT 09/14/2024 5:36 AM CDT us Herbert Dahl MD LAB BLOOD ORDERABLES Final Res ult Performing Organization Address [facility] de Phone Number [address] [address] * (ABNORMAL) Basic metabolic panel (09/14/2024 5:21 AM CDT) [facility] Sodium 140 135 - 145 mmol/L Potassium, pl 4.4 3.3 - 4.9 mmol/L [facility] Comment:Hemolyzed; Potassium value may be falsely elevated by as much as 1.0 mmol/L. Suggest redraw and reanalysis. Chloride 106 97 - 110 mmol/L [facility] CO2 23 22 - 32 mmol/L [facility] Anion gap 11 2 - 15 mmol/L [facility] BUN 49(H) 6 - 25 mg/dL [facility] Creatinine 13.70(H) 0.60 - 1.10 mg/dL [facility] Glucose 90 70 - 199 mg/dL [facility] Comment: Delta - Results Reviewed [...] LAB BLOOD ORDERABLES Final Res ult DENNIS [address] [facility] Department [place] [address] * CT Hand Right WO Contrast (09/14/2024 2:34 AM CDT) Anatomical Region Laterality Modality Upper Extremities Right Computed Tomog thiago 09/14/2024 9:19 AM CDT Narrative 09/14/2024 9:48 AM CDT EXAM DESCRIPTION: CT HAND RIGHT WO CONTRAST REASON FOR STUDY: Soft tissue infection suspected, hand, xray done C/o right hand pain. Was in ED after hypoglycemic event at [place], She states that upon waking up in [...] by Nick Miller M.D. T: Report ID: [id number] Reading Location: [place] [address] Procedure Note Nick Miller MD - 09/14/2024 EXAM DESCRIPTION: CT HAND RIGHT WO CONTRAST REASON FOR STUDY: Soft tissue infection suspected, hand, xray done C/o right hand pain. Was in ED after hypoglycemic event at [facility],She states that upon waking up in the [...] Nick Miller M.D. MJ T: Report ID: [id number] Reading Location: [place] [address] us Herbert Dahl MD IMG CT PROCEDURES Final Result * POCT glucose (09/14/2024 1:31 AM CDT) Glucose, POC 94 70 - 199 mg/dL Blood 09/14/2024 1:31 AM CDT 09/14/2024 1:31 AM CDT us Herbert Dahl MD LAB POCT ORDERABLES - DEVICE F inal Result DENNIS [address] [facility] Department [place] [place] [address] * Blood culture Blood (09/13/2024 11:28 PM CDT) Report Final Report: No growth Comment:Testing performed by : [facility], [address] [place] [address]., [id number] Blood 09/13/2024 11:2 8 PM CDT 09/14/2024 [...] performance characteristics have been verified by the [facility] Microbiology [facility]. For questions about this culture, contact the Microbiology Laboratory at [phone]. Interpretive data was last revised on 23. us Herbert Dahl MD LAB MICROBIOLOGY - GENERAL ORD ERABLES Final Result DENNIS JOSUE [address] [facility] Department [place] [address] * Blood culture Blood (09/13/2024 11:28 PM CDT) Report Final Report: No growth Comment:Testing performed by : [facility], [address] [place]., [address] Blood 09/13/2024 11:2 8 PM CDT 09/14/2024 [...] performance characteristics have been verified by the [facility]biology [facility]. For questions about this culture, contact the Microbiology Laboratory at [phone]. Interpretive data was last revised on 23. Herbert Dahl MD LAB MICROBIOLOGY - GENERAL ORD ERABLES Final Result DENNIS [address] [facility] Department [place] [address] * hCG, blood, quantitative (09/13/2024 [...] ORDERABLES Final Res ult Performing Organization Address [facility] Co de Phone Number DENNIS [address] [address] * POCT glucose (09/13/2024 9:24 PM CDT) Glucose, POC 125 70 - 199 mg/dL Blood 09/13/2024 9:24 PM CDT 09/13/2024 9:24 PM CDT us Herbert Dahl MD LAB POCT ORDERABLES - DEVICE F inal Result Performing Organization Address [facility] Co de Phone Number DENNIS [address] [address] * [place] [facility] ILL/INJURED PATIENT INIT 30-74 MIN [...] Result called to and read back by [id number], DATE: 2024-09-13 16:35:35 BY: [id number] Interpretive Data For further hscTnT resources including the diagnostic algorithm and an aid in interpretation, copy and paste this link: https://nrl.testcatalog.org/show/hsTrop Current Interpretive Data last revised 2020. Trop T hs pct delta -1 % DENNIS Trop T hs interp Insignificant DENNIS Blood 09/13/2024 3:54 PM CDT 09/13/2024 3:57 PM CDT Henrry Macedo MD LAB BLOOD ORDERABLES Final Resu lt Performing Organization Address [facility] Co de Phone Number DENNIS [address] [facility] [place] [address] * aPTT (09/13/2024 3:54 PM CDT) Pathologist [facility] aPTT 25 22 - 37 sec Comment: Interpretive data aPTT test has not been evaluated for monitoring heparin therapy. The anti-Xa is the preferred test. Current interpretive data was last revised on 2019. Blood 09/13/2024 3:54 PM CDT 09/13/2024 3:57 PM CDT Adria Dominguez MD LAB BLOOD ORDERABLES Final Result Performing Organization Address City/[facility]/ZIP Co de Phone Number DENNIS [address] [facility] [place] [address] * Protime-INR (09/13/2024 3:54 PM CDT) PT 14.20 12.00 - 14.60 sec INR 1.09 0.90 - 1.20 DENNIS JOSUE Comment: Ref Range High Interpretive data Oral [...] BLOOD ORDERABLES Final Result Performing Organization Address [facility] de Phone Number [address] [place] [address] * (ABNORMAL) Troponin T high-sensitivity 2-hour (09/13/2024 1:48 PM CDT) Trop T hs 354(C) <=14 ng/L Comment: Critical Result called to and read back by [id number], DATE: 2024-09-13 14:41:09 BY: [id number] Interpretive Data For further hscTnT resources including the diagnostic algorithm and an aid in interpretation, copy and paste this link: https://nrl.testcatalog.org/show/hsTrop Current Interpretive Data last revised 2020. Trop T hs pct delta -1 % DENNIS Trop T hs interp Insignificant DENINS Blood 09/13/2024 1:48 PM CDT 09/13/2024 2:03 PM CDT Henrry Macedo MD LAB BLOOD ORDERABLES Final Resu lt Performing Organization Address [facility]/ZIP Co de Phone Number [address] [place] [address] * Influenza A/B, RSV, and COVID-19 PCR Nasopharyngeal (09/13/2024 1:48 PM CDT) [facility] COVID-19 RNA Negative Negative Influenza A RNA Negative Negative [facility] Influenza B RNA Negative Negative [facility] RSV RNA Negative Negative [facility] Comment: Interpretive data: Testing performed by [facility]. This test is performed using the [employer] Xpert Xpress CoV-2/Flu/RSV plus assay. This is a multiplex, real-time reverse transcriptase PCR assay intended for the qualitative detection of nucleic acid from SARS-CoV-2, influenza A, influenza B, and respiratory syncytial virus. This assay has been cleared by the [place] Food and Drug administration. The performance characteristics have been verified by the [facility]. Results must be considered in the clinical context, and a negative result does not rule out infection. Interpretive Data last revised 2023 Nasopharyngeal 09/13/2024 1: 48 PM CDT 09/13/2024 2:03 PM CDT Narrative [facility] - 09/13/2024 2:52 PM CDT Is the Patient experiencing symptoms consistent with COVID?->Unknown Adria Dominguez MD LAB MICROBIOLOGY - GENERAL ORDERABLES Final Result Performing Organization Address City/[facility]/ZIP Co de Phone Number [address] [place] [address] * Sepsis Lactate w/ Reflex (09/13/2024 1:48 PM CDT) [facility] Sepsis Lactate 0.9 0.7 - 2.0 mmol/L Blood 09/13/2024 1:48 PM CDT 09/13/2024 2:03 PM CDT Adria Dominguez MD LAB BLOOD ORDERABLES Final Result Performing Organization Address [facility] Co de Phone Number [address] Department [place] [address] * XR Chest 1 Vw Portable (If [...] signed by Nick SCHMID T: Report ID: [id number] Reading Location: [id number] Procedure Note Nick Miller MD - 09/13/2024 [...] Nick Miller M.D. MJ T: Report ID: [id number] Reading Location: [id number] us Adria Dominguez MD IMG XR PROCEDURES [...] signed by Nick SCHMID T: Report ID: [id number] Reading Location: [place] [address] Procedure Note Nick Miller MD - 09/13/2024 [...] signed by Nick SCHMID T: Report ID: [id number] Reading Location: [place] [address] us Adria Dominguez MD IMG XR PROCEDURES Final Re sult * ECG 12 lead (09/13/2024 11:59 AM CDT) Ventricular Rate EKG/Min 77 BPM [facility] Atrial Rate 77 BPM [facility] [place]-Interval (MSEC) 142 ms [facility] QRS-Interval (MSEC) 72 ms [facility] QT-Interval (MSEC) 400 ms [facility] QTc 452 ms [facility] P Dutton 60 degrees [facility] R Dutton 16 degrees [facility] T Dutton 102 degrees [facility] Diagnosis Normal sinus rhythm Septal infarct (cited on or before 06-APR-2024) Abnormal ECG When compared with ECG of 06-APR-2024 08:18, Nonspecific T wave abnormality now evident in Lateral leads Confirmed by TITI MONGE M.D. ([id number]) on 09/14/2024 7:54:42 AM [facility] [employer] 09/13/2024 11:5 9 AM CDT 09/14/2024 7:54 AM CDT Adria Dominguez MD ECG ORDERABLES Final Resu lt Performing Organization Address [facility] Co de Phone Number [employer] [place] * (ABNORMAL) Troponin T high-sensitivity series (baseline, 2hr, 4hr, 6hr) (09/13/2024 11:50 AM CDT) Trop T hs 358(C) <=14 ng/L Comment: Critical Result called to and read back by [id number], DATE: 2024-09-13 12:26:30 BY: [id number] Interpretive Data For further hscTnT resources including the diagnostic algorithm and an aid in interpretation, copy and paste this link: https://nrl.testcatalog.org/show/hsTrop Current Interpretive Data last revised 2020. Blood 09/13/2024 11:5 0 AM CDT 09/13/2024 11:54 AM CDT Adria Dominguez MD LAB BLOOD ORDERABLES Final Result Performing Organization Address City/[facility] Co de Phone Number DENNIS [address] [facility] Department [place] [address] * (ABNORMAL) eGFR (09/13/2024 11:50 AM CDT) [...] Dominguez MD LAB BLOOD ORDERABLES Final Result [place] [address] [facility] Department [place] [address] * (ABNORMAL) Differential, auto (09/13/2024 11:50 AM CDT) Neutrophil abs 6.89(H) 1.50 - 6.50 K/cumm Imm gran abs 0.04 0.00 - 0.10 K/cumm [facility] Lymphocyte abs 2.47 0.80 - 3.30 K/cumm [facility] Monocyte abs 0.62 0.20 - 0.80 K/cumm [facility] Eosinophil abs 0.44 0.00 - 0.50 K/cumm [facility] Basophil abs 0.08 0.00 - 0.10 K/cumm [facility] Neutrophil pct 65.3 % [facility] Comment: Interpretive Data Percent cell count reference ranges are not reported, since discordance with absolute values may lead to misinterpretation of CBC data. Current Interpretive Data was last revised on 2017. Imm gran pct 0.4 % [facility] Comment: Interpretive Data Percent cell count reference ranges are not reported, since discordance with absolute values may lead to misinterpretation of CBC data. Current Interpretive Data was last revised on 2017. Lymphocyte pct 23.4 % [facility] Comment: Interpretive Data Percent cell count reference ranges are not reported, since discordance with absolute values may lead to misinterpretation of CBC data. Current Interpretive Data was last revised on 2017. Monocyte pct 5.9 % DENNIS Comment: Interpretive Data Percent cell count reference ranges are not reported, since discordance with absolute values may lead to misinterpretation of CBC data. Current Interpretive Data was last revised on 2017. Eosinophil pct 4.2 % DENNIS Comment: Interpretive Data Percent cell count reference ranges are not reported, since discordance with absolute values may lead to misinterpretation of CBC data. Current Interpretive Data was last revised on 2017. Basophil pct 0.8 % [facility] Comment: Interpretive Data Percent cell count reference ranges are not reported, since discordance with absolute values may lead to misinterpretation of CBC data. Current Interpretive Data was last revised on 2017. Blood 09/13/2024 11:5 0 AM CDT 09/13/2024 11:54 AM CDT us Adria Dominguez MD LAB BLOOD ORDERABLES Final Result [facility] [address] [facility] Department [place] [address] * (ABNORMAL) Pro B-type natriuretic peptide (09/13/2024 [...] Dominguez MD LAB BLOOD ORDERABLES Final Result [place] [address] [facility] Department [place] [address] * (ABNORMAL) CBC with auto differential (09/13/2024 11:50 AM CDT) WBC 10.54(H) 3.80 - 9.90 K/cumm Hgb 8.3(L) 11.9 - 15.5 g/dL [facility] Hct 27.2(L) 35.6 - 45.5 % [facility] Plt 287 150 - 400 K/cumm [facility] MPV 9.8 9.1 - 12.3 fL [facility] RBC 3.26(L) 3.90 - 5.20 M/cumm [facility] MCV 83.4 81.3 - 96.4 fL [facility] MCH 25.5(L) 27.1 - 33.3 pg [facility] MCHC 30.5(L) 32.3 - 35.7 g/dL [facility] RDW CV 16.2(H) 11.1 - 14.9 % [facility] RDW SD 49.4(H) 35.7 - 48.1 fL [facility] NRBC abs 0.00 0.00 - 0.01 K/cumm [facility] Blood 09/13/2024 11:5 0 AM CDT 09/13/2024 11:54 AM CDT Adria Dominguez MD LAB BLOOD ORDERABLES Final Result [facility] [address] [facility] Department [place] [address] * (ABNORMAL) Comprehensive metabolic panel (09/13/2024 11:50 AM CDT) Sodium 140 135 - 145 mmol/L Potassium, pl 4.6 3.3 - 4.9 mmol/L [facility] Chloride 103 97 - 110 mmol/L [facility] CO2 25 22 - 32 mmol/L [facility] Anion gap 12 2 - 15 mmol/L [facility] BUN 48(H) 6 - 25 mg/dL [facility] Creatinine 12.70(H) 0.60 - 1.10 mg/dL [facility] Glucose 216(H) 70 - 199 mg/dL [facility] Comment: Interpretive Data Fasting glucose [...] Calcium 8.9 8.5 - 10.3 mg/dL [facility] Bilirubin, total 0.2 0.1 - 1.2 mg/dL [facility] Protein, pl 6.4(L) 6.5 - 8.5 g/dL [facility] Albumin 2.8(L) 3.5 - 5.0 g/dL [facility] Alk phos 274(H) 40 - 130 Units/L [facility] ALT 31 7 - 45 Units/L [facility] AST 30 10 - 45 Units/L [facility] Blood 09/13/2024 11:5 0 AM CDT 09/13/2024 11:54 AM CDT us Adria Dominguez MD LAB BLOOD ORDERABLES Final Result DENNIS JOSUE [address] [facility] Department [place] [address] * Lipid panel (06/21/2024 7:20 PM CDT) [...] revised on 2017. Triglycerides 112 <=149 mg/dL [facility] Comment: Interpretive Data Ages < [...] on 2017. HDL 56 >=40 mg/dL DENNIS [facility] Comment: Interpretive Data Ages < [...] 2017. LDL, calculated 62 <=129 mg/dL [facility] Comment: Interpretive Data [...] on 2023. Non-HDL Cholesterol 82 mg/dL [facility] Comment: Interpretive Data Ages [...] revised on 2017. Chol/HDL ratio 2 DENNIS [facility] Blood 06/21/2024 7:20 PM CDT 06/21/2024 7:40 PM CDT Narrative [facility] - 06/22/2024 8:42 AM CDT Reflex us Brandan Orr MD LAB BLOOD ORDERABLES Vicki l Result Performing Organization Address [facility] Co de Phone Number [facility] [place] [address] * Hepatitis C antibody Blood (02/16/2024 11:34 AM FILM PROCESS OPERATOR) Hep C Ab Nonreactive Nonreactive Comment:Antibodies to HCV no t detected. Does NOT exclude the possibility of recent exposure to HCV. Current interpretive data was last revised on 21 Blood 02/16/2024 11:3 4 AM FILM PROCESS OPERATOR 02/16/2024 11:45 AM FILM PROCESS OPERATOR us Tonya Hammonds MD LAB MICROBIOLOGY - GENERAL ORDERABLES Final Result Performing Organization Address [facility] Co de Phone Number [facility] [place] [address] * Colonoscopy (07/21/2023 10:23 AM CDT) Anatomical Region Laterality Modality Other Narrative Procedure Note Haritha Stover MD - 07/21/2023 10:23 AM CDT [facility] Patient Name: Bakari Smith Procedure Date: 07/21/2023 10:23 AM Date of : 1980 Admit Type: Outpatient Age: 43 Gender: Female Attending MD: Haritha Stover M.D. Room: [facility] 02 Note Status: Finalized [...] The scope was passed under direct vision.The [id number] Colonoscope was introducedthrough the anus and advanced to the the cecum, identifiedby appendiceal orifice and ileocecal valve. The colonoscopy was performed without difficulty. The patient tolerated the procedure well. The qualityof the bowel preparation was evaluated using the BBPS (Masterson Bowel Preparation Scale) with scores of:Right Colon [...] On: 07/21/2023 10:23 AM Recognized by the [place] [employer] for promoting quality in endoscopy Haritha Stover MD ENDOSCOPY PROCEDURES Final Res ult * HM MAMMOGRAPHY (06/04/2021) Impressions Rashida Schneider - 06/04/2021 IMPRESSION: 1. Benign mammogram. READ BY: NINO BAJWA MD 06/05/2021 Historical Provider HEALTH MAINTENANCE Final Result from Last 3 Months or Most Recently Relevant to Health Maintenance Insurance [employer] [facility] MEDICARE MEDICARE MEDICARE MEDICARE Advance Directives For more information, please contact: [phone] * Full Code (Latest Code Status on File) Date Activated Date Inactivated Comments 09/13/2024 9:22 PM 09/15/2024 6:14 PM * Full Code Date Activated Date Inactivated Comments 06/22/2024 8:11 AM 06/23/2024 7:28 PM * Full Code Date Activated Date Inactivated Comments 07/21/2023 9:59 AM 07/21/2023 3:56 PM Care Teams Boat Puller Relationship Specialty Start Date End Date Sulema Lennon NP [address] [facility] [address] [place] [address] PCP - General Nurse Practitioner 09/14/24 Almita Rizzo RN [address] [facility] [address] [place] [address] Handwriting Expert 04/04/21 Beth Fernandez MD [address] [facility] [address] [place] [address] Referring Physician Nephrology 04/04/21 Maday Oviedo MD [address] [facility] [address] [place] [address] Neurology 09/12/22 Tomasz Scott DO [address] [place] [address] Horse Shoer Cardiology 09/16/22 Meir Nazario MD [address] [place] [address] Obstetrics and Gynecology 04/11/24
--- OUTSIDE RECORDS SUMMARY | 2024-12-14 08:51 | XMS_ITS ---
Author Organization [facility] Office Center Address [address] [place] [address] Care Team Providers Care Basic Sciences Dean Name Role Phone Almita Rizzo RN Unavailable [phone] Beth Fernandez MD Unavailable [phone] Maday Oviedo MD Unavailable [phone] Tomasz Scott DO Unavailable [phone] Meir Nazario MD Unavailable [phone] Sulema Lennon NP Primary Care Provider [phone] Transplant Episode Kidney Candidate [facility] ([place], [place]) [facility] waitlisted on 09/10/2021 Marked as Inactive on 11/16/2024 Reason: 04 - Insurance Issues Kidney CoordinatorAlmita Rizzo RN Fax: N/A Email: N/A Scores Score Value Updated Exceptions/Reas ons CPRA Not available EPTS (Calc) 56 12/14/2024 [place] 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 Mellitus - Type II Care Team Name Role Phone Fax Email Almita Rizzo RN Kidney Coordinator [phone] N/A N/A Beth Fernandez MD Referring Physician [phone] N/A Hien Mireles Bush Hog Operator [phone] N/A N/A Events Pre-Transplant Referred: 02/07/2021 Evaluation began: 04/04/2021 Committee: 09/09/2021 UNOS qualified: 01/21/2021 Center waitlisted: 09/10/2021 Appointments (11/14/2024 - 01/14/2025) When With Visit Type Description 11/18/2024 Transplant HOSPITAL OUTPATI ENT VISIT Dialysis History Dialysis History Start End Type Comments Center 10/20/2024 Hemo T/TH/Sat [facility] 04/23/2021 10/20/[address] Beth Fernandez [facility] 01/21/2021 04/23/2021 Hemo M/W/F [facility] Dialysis Center Information Center Phone Fax Address [facility] [phone] [place] [id number] [facility] [phone] [address] [facility] [address] [facility] [address]
--- OUTSIDE RECORDS SUMMARY | 2024-12-14 08:51 | XMS_ITS | Encounter Summary ---
Author Organization [facility] Healthcare Address [address] [place] [address] Care Team Providers Care Energy Assistant Name Role Phone Jessie iDckson NP Primary Care Provider [phone] Almita Rizzo RN Unavailable [phone] Beth Fernandez MD Unavailable [phone] Maday Oviedo MD Unavailable [phone] Tomasz Scott DO Unavailable [phone] Bashir Alston MD Primary Care Provider [phone] No, Physician Primary Care Provider [phone] Meir Nazario MD Unavailable [phone] Kendra Russell RN Unavailable [phone] Unknown, Notinfile Primary Care Provider Unavail able Sulema Lennon NP Primary Care Provider [phone] Reason for Visit * Reason Onset Date Comments READY TO SCHEDULE 04/28/2023 Encounter Details Date Type Department Care Team (Late st Contact Info) Description 04/28/2023 Telephone [facility] Specialty Services [address] [place] [address] Miscellaneous, Not In File READY TO SCHEDULE [...] on file Legal 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 [employer] Gender Identity Not on file Sexual Orientation [...] documented as of this encounter Care Teams Energy Assistant Relationship Specialty Start Date End Date Jessie Dickson NP [address] [place] [address] PCP - General Nurse Practitioner 03/05/21 07/07/23 Bashir Alston MD [address] [place] [address] PCP - General Transplant 07/08/23 07/08/23 No, Physician PCP - General 02/16/24 09/12/24 Unknown, Notinfile PCP - General 09/13/24 09/13/24 Sulema Lennon NP [address] [facility] [address] [place] [address] PCP - General Nurse Practitioner 09/14/24 Almita Rizzo, RN [address] [facility] [address] [place] [id number] Diving Board Assembler 04/04/21 Beth Fernandez MD [address] [place] [address] Referring Physician Nephrology 04/04/21 Maday Oviedo MD [address] [place] [address] Neurology 09/12/22 Tomasz Scott DO [address] [place] [address] Acreage Reporter Cardiology 09/16/22 Meir Nazario MD [address] [place] [address] Obstetrics and Gynecology 04/11/24 Kendra Russell RN [address] [place] [address] [employer]OP Outpatient Golf Technician 06/24/24 07/21/24 documented as of this encounter
--- OUTSIDE RECORDS SUMMARY | 2024-12-14 08:52 | XMS_ITS | Clinical Summary ---
Author Organization [facility] Address [facility] [place] [address] Care Team Providers Care Glass Etcher Helper Name Role Phone Sulema Lennon NP Primary Care Provider [phone] Allergies Active Allergy Reactions Criticality Noted Date [...] Indications: Shortness of breath 01/08/20 24 Active lactulose (CHRONULAC) 10 GM/15ML solutionIndica tions:Constipa [...] TO AFFECTED AREA TWICE A DAY Active gabapentin (NEURONTIN) 100 MG capsuleIndicat ions:Pain Take 2 capsules by mouth 3 (three) times daily. Indications: Pain 12/01/19 24 025 labetalol (NORMODYNE) 200 MG tabletIndicati ons:Hypertensi on [...] Anterior knee pain 11/23/2024 Diabetic peripheral neuropathy 11/23/2024 Heartburn 11/23/2024 Infestation by Sarcoptes scabiei ernesto hominis 02/2024 Painful mouth 11/23/2024 Osteoarthritis of patellofemoral joint Epigastric pain 11/23/2024 Skin eruption 11/23/2024 Thigh pain 11/23/2024 Diabetes mellitus 11/23/2024 Elevated CPK 11/10/2024 ESRD on hemodialysis 10/21/2024 Right hand pain 10/11/2024 Hypertensive urgency 09/13/2024 Encounter for peritoneal dialysis 06/21/2024 Pain of left upper extremity 06/24/2023 Mass of right breast 02/02/2023 Encounter for surgical after care following surgery of circulatory system 07/04/2022 History of cerebrovascular accident 06/11/2022 Ovarian mass 04/10/2022 Overview (11/23/2024): Added automatically from request for surgery [id number] Bereavement 07/04/2021 Chronic constipation 04/17/2021 Cyst of left ovary 04/17/2021 History of optic neuritis 04/17/2021 Morbid obesity 04/17/2021 Pelvic mass 04/17/2021 Family history of malignant neoplasm of breast in first degree relative 03/20/2021 Stage 5 chronic kidney disease on dialysis 03/15 ESRD (end stage renal disease) on dialysis 03/05 Gastroesophageal reflux disease 01/18/2021 Stage 3 chronic kidney disease 07/13/2018 Overview (11/23/2024): follows with Ivonne Fernandez at [facility] 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 Hypertension 05/31/2018 Blurring of visual image 05/24/2018 Acute conjunctivitis 04/23/2016 Acute laryngitis 04/23/2016 Otitis media 04/23/2016 Diabetic retinopathy associa graeme with type 2 diabetes mellitus 06/12/2015 Visual disturbance 06/12/2015 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 12/07/2014 Hyperlipidemia 06/29/2014 Vitamin D deficiency 09/17/2012 Encounters Date Type Department Care Team Description 11/23/2024 3:15 PM CDT Office Visit [facility], [address] [place] [address] Raulito Valdez MD Follow Up 11/23/2024 11:00 AM CDT Home Care Visit [facility] Home Care [address] [place] [address] [address] Urmila Allen RN SN OASIS DISCHARGE/ASSESSMENT 11/23/2024 Home Care Visit [facility] Home Care [address] [phone] Urmila Allen RN [facility] INTERDISCIPLINARY MTG 11/23/2024 Travel 11/16/2024 9:00 AM CDT Home Care Visit [address] [phone] Jessica Bond OT OT DISCIPLINE DISCHARGE 11/16/2024 Scan HEALTH INFO SRVCS Scanned, [facility] 11/16/2024 Telephone [facility] Medical [facility] - [address] [phone] Brian Denise MD Appointment Request 11/14/2024 9:36 AM CDT - 11/14/2024 11:59 PM CDT Hospital Encounter [facility] [place] [address] Minh Mccarthy MD Discharge Disposition: Home or Self Care (Routine Discharge) 11/14/2024 Travel 11/11/2024 Telephone [facility] Medical Group Multispecialty [address] [phone] Minh Mccarthy MD Clarification (Location for Labs) 11/09/2024 1:20 PM CDT Telemedicine [address] [phone] Minh Mccarthy MD Bacteremia (With peritonitis); Chronic Kidney Disease (ESRD on HD); Abnormal Lab Results (CPK elevation) 11/09/[address] [phone] Minh Mccarthy MD Lab Results 11/09/2024 Travel 11/08/2024 Scan MG HEALTH INFO SRVCS Scanned, [facility] Lab (SCAN) 11/07/2024 Scan MG HEALTH INFO SRVCS Scanned, [facility] Lab (SCAN) 11/03/2024 2:00 PM CDT Home Care Visit [address] [phone] Jessica Bond, SHIRA OT HOME VISIT 11/03/[address] [phone] Minh Mccarthy MD Medication 11/02/2024 Hospital Follow-up Call [facility] [place] [address] Rosibel Alonzo LPN Follow Up Call ([facility] 10/10-10/29/24) 11/01/2024 12:30 PM CDT Home Care Visit [address] [phone] Jessica Bond, OT OT INITIAL EVALUATION 11/01/[address] [phone] Minh Mccarthy MD Appointment Request; Returned Call; Callback 10/31/2024 Telephone [facility] [place] [address], [facility] [address] [place] [phone] Sulema Lennon NP Advice (Nurse Triage - After Hours ([id number])/) 10/30/2024 2:28 PM CDT - 10/30/2024 11:59 PM CDT Hospital Encounter [facility] [place] [address] Minh Mccarthy MD Discharge Disposition: Home or Self Care (Routine Discharge) 10/30/2024 9:00 AM CDT Home Care Visit [address] [place] [phone] Mariana Glynn, DELFINO SN OASIS START OF CARE 10/30/2024 Home Care Visit [address] [place] [phone] Ivett Willis RN CASE COMMUNICATION 10/30/2024 Plan of Care Documentation [address] [phone] 10/30/[address] [facility] [place] [address] Minh Mccarthy MD 10/28/2024 9:00 AM CDT Home Care Visit [facility] Home [address] [place] [phone] Vanita Alberts, MARBLE MACHINE OPERATOR VISIT 10/26/2024 7:[address] [facility] [place] [address] Favian Moody MD Clements, Kristopher P, TECHNOLOGY SALES CONSULTANT 10/26/2024 7:40 PM CDT - 10/26/2024 8:49 PM CDT Surgery [facility] [place] [address] Raulito Valdez MD PERMACATH PLACEMENT 10/23/2024 3:00 PM CDT - 10/23/2024 4:09 PM CDT Surgery [facility] [place] [address] Raulito Valdez MD TEMPORARY HEMODIALYSIS CATHETER PLACEMENT 10/22/2024 1:09 PM CDT - 10/22/2024 2:39 PM CDT Surgery [facility] [place] [address] Lv Perez MD REMOVAL PERITONEAL DIALYSIS CATHETER 10/22/2024 10:55 AM CDT Anesthesia Event [facility] [place] [address] Edinson Claros MD O'Brien, Patrick K, LANNY 10/22/2024 Travel 10/21/2024 Prep for Procedure [facility] [address] Raulito Valdez MD 10/17/2024 Telephone [facility] Care Management [address] [phone] Keily Weston, water quality manager (Swing bed referral to SJ/SJB from PAR[facility]/) 10/10/2024 6:44 PM CDT - 10/29/2024 3:04 PM CDT Hospital Encounter [facility] [place] [address] Wagner Paz MD,PHD Alka Contreras MD Romick, Jordan K, MD Brubaker, Amos Miller, MD Mathieu, Jose E, MD Hand Pain; Wrist Pain Discharge Disposition: [...] materials from doctor or pharmacy Never 11/23/2024 [facility] Utilities Answer Date Recorded In the past 12 months has th e [employer], [employer], oil, or water [employer]asht[employer] threatened to shut off services in your [...] any time in the past 12 m [facility], were you homeless or living in a residential (including now)? No 10/11/2024 Comments Unknown Sex [...] st Contact Info) Description 03/22/2025 10:40 AM MEAT CARRIER Office Visit [facility] Medical Group Multispecialty Care - [address] [place] [phone] Brian Denise MD [address] [place] [address] [address] [place] [address] Health Maintenance Due Date Last Done Comments Cervical Cancer Screening Pap Smear (Age 30 to 64) Every 3 Years 1978 Colorectal Cancer Screening Colonoscopy (10 Years) 1978 Lipid Panel 1978 Annual Physical 1981 Diabetes: Retinopathy Eye Exam 1996 Cervical Cancer Screening Pap with HPV Testing (Age 30 to 64) Every 5 Years 2008 Cervical Cancer Screening with HPV 2008 Mammogram Screening 2018 Hepatitis B Vaccines (1 of 1 - Risk Dialysis 4-dose series) 2024 2023, 10/06/2022, 04/18/2021 COVID-19 Vaccine (2023- season) 2024 Influenza Adult (#1) 2024 11/27/2023, 02/03/2023, 12/27/2021 Hemoglobin A1C 03/17/2025 09/14/2024, 04/2 10/2024, 02/16/2024, Additional history exists DTaP, Tdap and Td Vaccines (6 - Td or Tdap) 07/10/2027 07/09/2017, 06/18/1984, 08/30/1980, Additional history exists Pneumococcal Vaccine: Pediatrics (0 to 5 Years) and At-Risk Patients (6 to 49 Years) Completed 2023, 04/18/2021, 03/03/2018, Additional history exists Hepatitis C Completed 10/26/2024, 08/24, 09/14/2024, Additional history exists PHQ-2 (Physician Almond) Completed 11/09/2024 Hepatitis A Vaccines Aged Out No long er eligible based on patient's age to complete this topic Meningococcal B Vaccine Aged Out No l [...] (CPK) Routine 11/14/2024 9:40 AM CDT Peritonitis ([facility]) OUTSIDE LAB (SCAN ORDER) 11/08/2024 OUTSIDE LAB (SCAN ORDER) 11/08/2024 OUTSIDE LAB (SCAN ORDER) 11/07/2024 COMPREHENSIVE METABOLIC PANEL Routine 10/30/2024 1:00 PM CDT Pericolitis ([facility]) Bacteremia Staphylococcus aureus infection, multiple-resistant (MRSA) Unresolved pneumonia CBC W/DIFF AUTOMATED Routine 10/30/2024 1:00 PM CDT Pericolitis ([facility]) Bacteremia Staphylococcus aureus infection, multiple-resistant (MRSA) Unresolved pneumonia CK (CPK) Routine 10/30/2024 1:00 PM CDT Pericolitis ([facility]) Bacteremia Staphylococcus aureus infection, multiple-resistant (MRSA) Unresolved [...] 10/23/2024 3:00 PM CDT ESRD on hemodialysis ([facility]) Case Notes SCHED BY NADER 10/21/2024 LCS [...] CATH Routine 10/22/2024 12:15 PM CDT CULTURE PLOW SHAKER Routine 10/22/2024 11:29 AM CDT CULTURE, ANAEROBIC [...] 2:54 PM CDT DRVVT CONFIRMATION Routine 10/18/2024 2:54 PM CDT HEXAGONAL PHASE CONFIRM Routine 10/18/2024 [...] - 215 U/L 11/14/2024 10:51 AM CDT [facility] 11/14/2024 9:40 AM CDT Minh Mccarthy MD LABORATORY Final Result [facility] [address] [place] [address], [place] [phone] * OUTSIDE LAB (SCAN ORDER) (11/08/2024) Only the most recent of3 resultswithin the time period is included. 11/08/2024 us [facility] Scanned SCANNING Final Resu lt * (ABNORMAL) COMPREHENSIVE METABOLIC PANEL (10/30/2024 1:00 PM CDT) Only the most recent of5 resultswithin the time period is included. GLUCOSE 116(H) 70 - 99 MG/DL 10/30/2024 3:35 PM CDT [facility] BUN 17 7 - 18 MG/DL 10/30/2024 3:35 PM CDT [facility] CREATININE S/P/B 6.88(HH) 0.55 - 1.02 MG/DL 10/30/2024 3:35 PM CDT [facility] Comment: Critical Result(s) Called at: 15:34:22 on 10/30/2024 by: KAIN QUINN to and read back by:NADER JOHNSON SODIUM S/P/B 138 136 - 145 MMOL/L 10/30/2024 3:35 PM CDT [facility] POTASSIUM S/P/B 3.9 3.5 - 5.1 MMOL/L 10/30/2024 3:35 PM CDT [facility] CHLORIDE S/P/B 100 97 - 115 MMOL/L 10/30/2024 3:35 PM CDT [facility] CO2 33.3(H) 21 - 32 MMOL/L 10/30/2024 3:35 PM CDT [facility] CALCIUM S/P/B 8.9 8.5 - 10.1 MG/DL 10/30/2024 3:35 PM T [facility] BILIRUBIN TOTAL S/P/B 0.5 0.2 - 1.2 MG/DL 10/30/2024 3:35 PM T [facility] Comment: THIS ASSAY IS NOT RECOMMENDED FOR PATIENTS UNDERGOING TREATMENT WITH ELTROMBOPAG DUE TO THE POTENTIAL FOR FALSELY ELEVATED RESULTS. TOTAL PROTEIN S/P/B 8.0 6.4 - 8.2 G/DL 10/30/2024 3:35 PM T [facility] ALBUMIN S/P/B 1.9(L) 3.4 - 5.0 G/DL 10/30/2024 3:35 PM T [facility] AST 29 15 - 37 U/L 10/30/2024 3:35 PM T [facility] ALT 18 14 - 55 U/L 10/30/2024 3:[address] [facility] ALKALINE PHOSPHATASE S/P/B 311(H) 50 - 136 U/L 10/30/2024 3:35 PM T [facility] ANION GAP 4.7 2 - 10 MMOL/L 10/30/2024 3:35 PM T [facility] BUN CREATININE RATIO 2.5(L) 6 - 26 10/30/2024 3:[address] [facility] A/G RATIO 0.3(L) 1.0 - 2.0 RATIO 10/30/2024 3:[address] [facility] GFR ESTIMATE 7(L) >90 ML/MIN/1.7 3 M2 10/30/2024 3:35 PM T [facility] Comment: NOTE: eGFR is not calculated for patients <18 years of age or gender unknown. This is an estimated GFR calculation using the new CKD EPI creatinine equation without race and so does not require a correction factor for race. This estimated GFR should not be used for calculating drug doses. 10/30/2024 1:00 PM CDT us Minh Mccarthy MD LABORATORY Final Result [facility] [address] [place] [address], * (ABNORMAL) CBC W/DIFF AUTOMATED (10/30/2024 1:00 PM CDT) Only the most recent of20 resultswithin the time period is included. WBC 13.14(H) 4.5 - 11.0 x10'3/uL 10/30/2024 2:40 PM CDT [facility] RBC 3.53(L) 4.20 - 5.40 x10'6/uL 10/30/2024 2:40 PM CDT [facility] HGB 8.9(L) 12.0 - 16.0 G/DL 10/30/2024 2:40 PM CDT [facility] HCT 29.8(L) 38.0 - 48.0 % 10/30/2024 2:40 PM CDT [facility] MCV 84.4 81.0 - 99.0 FL 10/30/2024 2:40 PM CDT [facility] MCH 25.2(L) 27.0 - 31.0 PG 10/30/2024 2:40 PM CDT [facility] MCHC 29.9(L) 32.0 - 36.0 G/DL 10/30/2024 2:40 PM CDT [facility] RDW 15.7(H) 11.5 - 14.5 % 10/30/2024 2:40 PM CDT [facility] PLT 464(H) 130 - 400 x10'3/uL 10/30/2024 2:40 PM CDT [facility] MPV 9.7 9.3 - 12.2 FL 10/30/2024 2:40 PM CDT [facility] DIFFERENTIAL TYPE AUTOMATED DIFFERENTIAL 10/30/2024 2:40 PM CDT [facility] NEUTROPHILS % 66.7 % 10/30/2024 2:40 PM CDT [facility] LYMPHOCYTES % 20.5 % 10/30/2024 2:40 PM CDT [facility] MONOCYTES % 7.3 % 10/30/2024 2:40 PM CDT [facility] EOSINOPHILS 3.5 % 10/30/2024 2:40 PM CDT [facility] BASOPHILS 1.2 % 10/30/2024 2:40 PM CDT [facility] IMMATURE GRANS % 0.8 % 10/31/19 2:40 PM CDT [facility] ABS. NEUTROPHILS 8.75(H) 1.80 - 7.70 x10'3/uL 10/30/2024 2:40 PM CDT [facility] ABS. LYMPHOCYTES 2.70 1.00 - 4.80 x10'3/uL 10/30/2024 2:40 PM CDT [facility] ABS. MONOCYTES 0.96(H) 0.24 - 0.86 x10'3/uL 10/30/2024 2:40 PM CDT [facility] ABS. EOSINOPHILS 0.46(H) 0.04 - 0.36 x10'3/uL 10/30/2024 2:40 PM CDT [facility] ABS. BASOPHILS 0.16(H) 0.01 - 0.08 x10'3/uL 10/30/2024 2:40 PM CDT [facility] ABS. IMMATURE GRANULOCYTES 0.11 0.00 - 0.49 x10'3/uL 10/30/2024 2:40 PM CDT [facility] 10/30/2024 1:00 PM CDT Minh Mccarthy MD LABORATORY Final Result [facility] [address] [place] [address], [place] [phone] * (ABNORMAL) BASIC METABOLIC PANEL (10/29/2024 6:41 AM CDT) Only the most recent of15 resultswithin the time period is included. GLUCOSE 101(H) 70 - 99 MG/DL 10/29/2024 7:36 AM CDT [facility] BUN 25(H) 7 - 18 MG/DL 10/29/2024 7:36 AM CDT [facility] CREATININE S/P/B 8.79(HH) 0.55 - 1.02 MG/DL 10/29/2024 7:36 AM CDT [facility] Comment:NOT CALLED PER CRITI [employer]ERTR[employer] VALUE POLICY SODIUM S/P/B 137 136 - 145 MMOL/L 10/29/2024 7:36 AM CDT [facility] POTASSIUM S/P/B 3.8 3.5 - 5.1 MMOL/L 10/29/2024 7:36 AM CDT [facility] CHLORIDE S/P/B 101 97 - 115 MMOL/L 10/29/2024 7:36 AM CDT [facility] CO2 31.6 21 - 32 MMOL/L 10/29/2024 7:36 AM CDT [facility] CALCIUM S/P/B 8.4(L) 8.5 - 10.1 MG/DL 10/29/2024 7:36 AM CDT [facility] ANION GAP 4.4 2 - 10 MMOL/L 10/29/2024 7:36 AM CDT [facility] BUN CREATININE RATIO 2.8(L) 6 - 26 10/29/2024 7:36 AM CDT [facility] GFR ESTIMATE 5(L) >90 ML/MIN/1.7 3 M2 10/29/2024 7:36 AM CDT [facility] Comment: NOTE: eGFR is not calculated for patients <18 years of age or gender unknown. This is an estimated GFR calculation using the new CKD EPI creatinine equation without race and so does not require a correction factor for race. This estimated GFR should not be used for calculating drug doses. 10/29/2024 6:41 AM CDT Maria Dumont DO LABORATORY Final Result Performing Organization Address City/[facility]/ZIP Co de Phone Number [facility] [address] [place] [address], [place] [phone] * (ABNORMAL) POCT glucose (10/29/2024 5:56 AM CDT) Only the most recent of83 resultswithin the time period is included. GLUCOSE POC 101(H) 70 - 99 mg/dL 10/29/2024 6:02 AM CDT [facility] 10/29/2024 5:56 AM CDT Jose Murdock MD POCT ORDERABLES - DEVICE Vicki l Result [facility] [address] [place] [address], [place] [phone] * CULTURE, GENITAL W/ GRAM STAIN (10/27/2024 11:50 PM CDT) SPEC DESCRIPTION VAGINAL SPECIMEN 10/28/2024 12:06 AM CDT [facility] SPECIAL REQUESTS NO SPECIAL REQUEST 10/28/2024 12:06 AM CDT [facility] GRAM STAIN RESULT NEGATIVE FOR BACTERIAL VAGINOSIS 10/28/2024 2:25 AM CDT [facility] GRAM STAIN RESULT NO YEAST SEEN 10/28/2024 2:25 AM CDT [facility] CULTURE RESULT LIGHT GROWTH OF NORMAL SANG PRESENT 10/30/2024 11:04 AM CDT [facility] VAGINAL STRUCTURE / Unknown 10/27/2024 11:50 PM CDT 10/28/2024 1:40 AM CDT Chase Aponte DO MICROBIOLOGY - GENERAL ORDERABLE S Final Result [facility] [address] [place] [address], [place] [phone] * HEPATITIS B SURFACE ANTIBODY (10/27/2024 12:20 PM CDT) HEP B SURFACE AB REACTIVE 10/27/2024 2:08 PM CDT [facility] 10/27/2024 12:2 0 PM CDT Candis Moreno MD LABORATORY Final Result [facility] [address] [place] [address], [place] [phone] * HEPATITIS B CORE ANTIBODY (10/27/2024 12:20 PM CDT) HEP B CORE TOTAL AB NON-REACTI VE NON-REACTI VE 10/27/2024 2:07 PM CDT [facility] 10/27/2024 12:2 0 PM CDT us Candis Moreno MD LABORATORY Final Result [facility] [address] [place] [address], [place] [phone] * HEPATITIS B CORE AB IGM (10/27/2024 12:20 PM CDT) HEP B CORE IGM NON-REACTI VE NON-REACTI VE 10/27/2024 2:06 PM CDT [facility] 10/27/2024 12:2 0 PM CDT Candis Moreno MD LABORATORY Final Result Performing Organization Address City/[facility] Co de Phone Number [facility] [address] [place] [address], [place] [phone] * XR CHEST PORTABLE (10/26/2024 8:37 PM [...] 8:58 PM Narrative 10/26/2024 9:03 PM CDT [facility] [address] [address] Examination: Chest 1 view portable History: Line [...] Procedure Note Demarco Barnes MD - 10/26/[address] [address] Examination: Chest 1 view portable History: Line [...] VE NON-REACTI VE 10/26/2024 10:08 PM CDT [facility] HEP B CORE IGM NON-REACTI VE NON-REACTI VE 10/26/2024 10:08 PM CDT [facility] HAV IGM NON-REACTI VE NON-REACTI VE 10/26/2024 10:08 PM CDT [facility] HEPATITIS C AB NON-REACTI VE NON-REACTI VE 10/26/2024 10:08 PM CDT [facility] 10/26/2024 7:06 PM CDT us Candis Moreno MD LABORATORY Final Result Performing Organization Address City/[facility]/ZIP Co de Phone Number [facility] [address] [place] [address], [place] [phone] * Vancomycin Random Level (10/24/2024 6:56 AM CDT) Only the most recent of8 resultswithin the time period is included. VANCOMYCIN RANDOM 17.3 MCG/ML 10/24/2024 7:47 AM CDT [facility] Comment:NO THERAPEUTIC RANGE AVAILABLE LAST DOSE UNKNOWN LAST DOSE 10/24/2024 10:08 AM CDT [facility] 10/24/2024 6:56 AM CDT us Amos Cline MD LABORATORY Fin al Result [facility] [address] [place] [address], [place] [phone] * TYPE & SCREEN (10/23/2024 10:30 PM CDT) Only the most recent of3 resultswithin the time period is included. ABO/RH B POSITIVE 10/23/2024 11:37 PM CDT [facility] ANTIBODY SCREEN NEGATIVE 10/23/2024 11:37 PM CDT [facility] SAMPLE EXPIRATION 10/26/2024,2 359 10/23/2024 11:37 PM CDT [facility] 10/23/2024 10:3 0 PM CDT Bubba Crowley MD BLOOD BANK TEST ORDERABLES Vicki l Result [facility] [address] [place] [address], [place] [phone] * (ABNORMAL) TROPONIN, QUANT (10/23/2024 3:12 PM CDT) Only the most recent of6 resultswithin the time period is included. Pathologist [facility] TROPONIN I HIGH SENSITIVITY 70(H) <54 ng/L 10/23/2024 4:16 PM CDT [facility] Comment: HIGH DOSES OF BIOTIN, TROPONIN-SPECIFIC AUTOANTIBODIES, AND ANTIBODY THERAPY CONTAINING HAMA MAY INTERFERE WITH THIS TEST RESULT. CORRELATION TO CLINICAL HISTORY AND PRESENTATION RECOMMENDED. 10/23/2024 3:12 PM CDT Anuja Newman MD LABORATORY Final Result [facility] [address] [place] [address], [place] [phone] * ECG 12 lead (10/23/2024 12:31 PM CDT) Only the most recent of5 resultswithin the time period is included. 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: Sq : 1980 Requested By: AMOS CLINE Order Number: [id number] Reading MD: Jamar Sharif Measurements Intervals [place] Rate: 69 P: 12 MA: 143 QRS: 7 QRSD: 93 T: 75 QT: 415 QTc: 447 Interpretive Statements SINUS RHYTHM POSSIBLE ANTERIOR MYOCARDIAL INFARCTION [30 ms Q WAVE IN V3/V4, OR R < 0.2 mV IN V4], OF INDETERMINATE AGE Compared to ECG 10/19/2024 21:59:39 Myocardial infarct finding now present T-wave abnormality no longer present Procedure Note Jamar Sharif MD - 10/24/[address] [facility] [address] Test Date: 2024-10-23 Pat Name: NIDHI SMART Department: 40 Room: [id number] Gender: Female [employer] [place]: : 1980 Requested By: AMOS CLINE Order Number: [id number] Reading MD: Jamar Sharif Measurements Intervals [place] Rate: 69 P: 12 MA: 143 QRS: 7 QRSD: 93 T: 75 QT: 415 QTc: 447 Interpretive Statements SINUS RHYTHM POSSIBLE ANTERIOR MYOCARDIAL INFARCTION [30 ms Q WAVE IN V3/V4, OR R < 0.2mV IN V4], OF INDETERMINATE AGE Compared to ECG 10/19/2024 21:59:39 Myocardial infarct finding now present T-wave abnormality no longer present us Amos Cline MD ECG ORDERABLES Fin al Result [facility] RAD * CULTURE PLOW SHAKER (10/22/2024 11:29 AM CDT) SPEC DESCRIPTION CATHETER TIP 10/22/2024 11:31 AM CDT [facility] SPECIAL REQUESTS NO SPECIAL REQUEST 10/22/2024 11:31 AM CDT [facility] CULTURE RESULT NO GROWTH 5 DAYS 10/27/2024 7:25 AM CDT [facility] WOUND CATHETER TIP SUBMITTED SPECIMEN / Unknown 10/22/2024 11:29 AM CDT Lv Perez MD MICROBIOLOGY - GENERAL OR DERABLES Final Result Performing Organization Address [facility]/ZIP Co de Phone Number [facility] [address] [place] [address], [place] [phone] * CULTURE, ANAEROBIC (10/22/2024 11:29 AM CDT) SPEC DESCRIPTION CATHETER TIP 10/22/2024 11:31 AM CDT [facility] SPECIAL REQUESTS NO SPECIAL REQUEST 10/22/2024 11:31 AM CDT [facility] CULTURE RESULT NO ANAEROBES ISOLATED AT 5 DAYS. 10/27/2024 6:55 AM CDT [facility] WOUND CATHETER TIP SUBMITTED SPECIMEN / Unknown 10/22/2024 11:29 AM CDT Lv Perez MD MICROBIOLOGY - GENERAL OR DERABLES Final Result [facility] [address] [place] [address], [place] [phone] * POTASSIUM, SERUM (10/22/2024 10:06 AM CDT) POTASSIUM S/P/B 4.5 3.5 - 5.1 MMOL/L 10/22/2024 10:49 AM CDT [facility] 10/22/2024 10:0 6 AM CDT us Edinson Claros MD LABORATORY Final Resu lt [facility] [address] [place] [address], [place] [phone] * TEST URINE (10/22/2024 8:38 AM CDT) URINE HCG TEST NEGATIVE 10/22/2024 9:42 AM CDT [facility] Comment: VERY DILUTE URINE SPECIMENS MAY NOT CONTAIN LABORER GENERAL LEVELS OF HCG. IF IS STILL SUSPECTED, A SERUM HCG TEST IS RECOMMENDED. URINE SPECIMEN FROM [facility] / Unknown 10/22/2024 8:38 AM CDT us Amos Cline MD URINE ORDERABLES Fi nal Result Performing Organization Address City/[facility]/ZIP Co de Phone Number [address] [address], [place] [phone] * MRI KNEE RT WO CON (10/20/2024 [...] 7:34 AM Narrative 10/21/2024 7:40 AM CDT [address] [address] EXAMINATION: MRI RIGHT KNEE WITHOUT CONTRAST EXAM [...] Procedure Note Britton Fuchs MD - 10/21/[address] [address] EXAMINATION: MRI RIGHT KNEE WITHOUT CONTRAST EXAM [...] 7.32 - 7.43 10/20/2024 1:09 PM CDT [facility] PCO2 VENOUS 46.0 MMHG 10/20/2024 1:09 PM CDT [facility] Comment:NO REFERENCE RANGE H BEEN ESTABLISHED PO2 VENOUS 37.0 MM HG 10/20/2024 1:09 PM CDT [facility] Comment:NO REFERENCE RANGE H BEEN ESTABLISHED TOTAL CO2 VENOUS 30.6(H) 22.0 - 26.0 MMOL/L 10/20/2024 1:09 PM CDT [facility] VENOUS BASE EXCESS 3.8 MMOL/L 10/20/2024 1:09 PM CDT [facility] Comment:NO REFERENCE RANGE H BEEN ESTABLISHED O2 SAT VENOUS 71 % 10/20/2024 1:09 PM CDT [facility] Comment:NO REFERENCE RANGE H BEEN ESTABLISHED BICARB VENOUS 29.2(H) 22.0 - 29.0 MMOL/L 10/20/2024 1:09 PM CDT [facility] O2 ADMIN VENOUS 28% 1:07 PM CDT [facility] 10/20/2024 11:4 0 AM CDT Kathi Pimentel MD LABORATORY Final Res ult [facility] [address] [place] [address], [place] [phone] * CULTURE, BACTERIA, BLOOD (10/20/2024 11:24 AM CDT) Only the most recent of7 resultswithin the time period is included. SPEC DESCRIPTION BLOOD-PEDIA TRIC VOLUME 10/20/2024 11:07 AM CDT [facility] SPECIAL REQUESTS NO SPECIAL REQUEST 10/20/2024 11:07 AM CDT [facility] CULTURE RESULT NO GROWTH 5 DAYS 10/25/2024 2:25 PM CDT [facility] BLOOD SPECIMEN OBTAINED FOR BLOOD CULTURE / Unknown 10/20/2024 11:24 AM CDT 10/20/2024 11:25 AM CDT Chase Aponte DO MICROBIOLOGY - GENERAL ORDERABLE S Final Result Performing Organization Address City/[facility]/ZIP Co de Phone Number [facility] [address] [place] [address], [place] [phone] * LACTIC ACID - SINGLE (10/20/2024 9:05 AM CDT) LACTIC ACID VENOUS 1.2 0.4 - 2.0 MMOL/L 10/20/2024 9:41 AM CDT [facility] 10/20/2024 9:05 AM CDT Chase Aponte DO LABORATORY Final Result [facility] [address] [place] [address], [place] [phone] * IR CHEST TUBE INSERTION (10/19/2024 4:45 PM CDT) Anatomical Region Laterality Modality Chest Interventional R adiology 10/19/2024 4:51 PM CDT Impressions 10/19/2024 4:57 PM CDT =====IMPRESSION:===== 1. Left pleural complex multiloculated septated large collection. 2. Procedure note for 12 Grenadian locking pigtail multipurpose percutaneous drainage catheter catheter placement in the left posterior inferior pleural space with ultrasound guidance. 3. 460 mL of slightly turbid orangeish fluid collected and sent for testing. Catheter placed to [facility] for transport and can be placed to suction on return to the floor. 4. Patient likely require lytic administration for further drainage, which can be performed under direction of the cardiothoracic surgical or pulmonology service, as clinically directed. 5. Please call IR if further questions Ordered By: CANDIS MORENO Interpreted By: Geetha Church MD, 10/19/2024 4:51 PM Narrative 10/19/2024 4:57 PM CDT [facility] [address] [place], [place] [address] Procedure: IR ultrasound-guided pleural/chest tube drainage Exam [...] from the patient, patient's medical power of research attorney. The procedure was discussed including the rationale, alternatives, benefits and risks including but not limited to infection, bleeding, damage to adjacent structures, and failure to place a drain. Timeout was performed. Continuous cardiorespiratory monitoring was performed by the direct supervision of including pulse, blood pressure, and oxygen saturation, under supervision of the interventional radiologist. Total intraprocedure [id number] time with the radiologist was 15 minutes [...] incision was made through which a 5 Grenadian Yueh one-step catheter was advanced under ultrasound guidance into the pleural space. Stylet was removed. Fluid was returned and a wire placed through the Yueh catheter which was removed followed by placement of a Amplatz guidewire. Tract dilatation was performed over the wire followed by advancement of a 12 Grenadian locking pigtail multipurpose percutaneous drainage catheter over the wire. Catheter position was confirmed ultrasound of the pigtail formed and locked. Catheter was secured to skin with 2. 0 Ethilon suture, stay fix. Overlying sterile gauze and Tegaderm was placed. Total of 460 mL of slightly turbid orangeish fluid was collected via vacuum bottle and sent for testing. The catheter was placed to [facility] for transported back to the floor. Lacquer Sprayer: Dr. Church No immediate complication Procedure Note Geetha Church MD - 10/19/[address] [address] Procedure: IR ultrasound-guided pleural/chest tube drainage Exam Date/Time: 10/19/2024 4:45 PM Indication: 44 female the line. Left pleural percutaneous catheterdrainage. Complex multiloculated septated pleural collection. Possibleempyema versus a subpulmonic effusion. Currently being treated forbacterial peritonitis Comparison: Ultrasound 10/19/2024. CT chest abdomen pelvis 10/18/2024 andCTA chest 10/13/2024 Procedure and findings: Informed verbal and written consent was obtainedfrom the patient, patient's medical power of research attorney. The procedure wasdiscussed including the rationale, alternatives, benefits and risksincluding but not limited to infection, bleeding, damage to adjacentstructures, and failure to place a drain. Timeout was performed. Continuous cardiorespiratory monitoring was performed by the directsupervision of including pulse, blood pressure, and oxygen saturation,under supervision of the interventional radiologist. Total intraprocedure [id number] time with the radiologist was 15minutes Patient [...] incision was made through which a 5 Grenadian Yueh one-stepcatheter was advanced under ultrasound guidance into the pleural space.Stylet was removed. Fluid was returned and a wire placed through the Yuehcatheter which was removed followed by placement of a Amplatz guidewire. Tract dilatation was performed over the wire followed by advancement of a12 Grenadian locking pigtail multipurpose percutaneous drainage catheter overthe wire. Catheter position was confirmed ultrasound of the pigtail formed andlocked. Catheter was secured to skin with 2. 0 Ethilon suture, stay fix.Overlying sterile gauze and Tegaderm was placed. Total of 460 mL of slightly turbid orangeish fluid was collected viavacuum bottle and sent for testing. The catheter was [facility] to [facility] for [facility] back to the floor. Lacquer Sprayer: Dr. Church No immediate complication =====IMPRESSION:===== 1. Left pleural complex multiloculated septated large collection. 2. Procedure note for 12 Grenadian locking pigtail multipurpose percutaneousdrainage catheter catheter placement in the left posterior inferiorpleural space with ultrasound guidance. 3. 460 mL of slightly turbid orangeish fluid collected and sent fortesting. Catheter placed to [facility] for transport and can be placed [...] BODY FLUID (10/19/2024 4:33 PM CDT) Pathologist [facility] SITE PLEURAL FLUID 10/19/2024 4:44 PM CDT [facility] Fluid pH 8.0 10/19/2024 7:35 PM CDT [facility] Comment: The reference range and other [...] FLUIDS AND STOOLS ORDERABLE S Final Result [facility] [address] [place] [address], [place] [phone] * LDH BODY FLUID (10/19/2024 4:33 PM CDT) [facility] LDH (FLUID) 749 UNITS/L 10/20/2024 10:27 AM CDT [facility] Comment: REFERENCE RANGE NOT ESTABLISHED FOR THIS BODY FLUID. INTERPRET RESULTS WITH CAUTION. DUE TO STORAGE/TRANSPORT CONDITIONS OF SPECIMEN PRIOR TO TESTING, THE RESULTS MAY BE FALSELY DECREASED. SITE PLEURAL FLUID 10/19/2024 4:34 PM CDT [facility] PLEURAL FLUID SPECIMEN / Unknown 10/19/2024 4:33 PM CDT Yosef Padilla DO BODY FLUIDS AND STOOLS ORDERABLE S Final Result Performing Organization Address [facility] Co de Phone Number [facility] [address] [place] [address], [place] [phone] [facility] [address] [place] [address], [place] [phone] * AMYLASE FLUID (10/19/2024 4:33 PM CDT) AMYLASE (BODY FLUID) 18 UNITS/L 10/20/2024 10:28 AM CDT [facility] Comment:REFERENCE RANGE NOT ESTABLISHED FOR THIS BODY FLUID. SPECIMEN SOURCE PLEURAL FLUID 10/19/2024 4:34 PM CDT [facility] PLEURAL FLUID SPECIMEN / Unknown 10/19/2024 4:33 PM CDT Candis Moreno MD BODY FLUIDS AND STOOLS ORDERABLE S Final Result Performing Organization Address [facility] Co de Phone Number [facility] [address] [place] [address], [place] [phone] [facility] [address] [place] [address], [place] [phone] * PROTEIN TOTAL FLUID (10/19/2024 4:33 PM CDT) PROTEIN (FLUID) 3.4 G/DL 10:28 AM CDT [facility] Comment:REFERENCE RANGE NOT ESTABLISHED FOR THIS BODY FLUID. SITE: PLEURAL FLUID 10/19/2024 4:34 PM CDT [facility] PLEURAL FLUID SPECIMEN / Unknown 10/19/2024 4:33 PM CDT us Yosef Padilla DO BODY FLUIDS AND STOOLS ORDERABLE S Final Result Performing Organization Address City/[facility]/ZIP Co de Phone Number [facility] [address] [place] [address], [place] [phone] [facility] [address] [place] [address], [place] [phone] * CULTURE BODY FLUID W/ GRAM STAIN (10/19/2024 4:33 PM CDT) Only the most recent of2 resultswithin the time period is included. SPEC DESCRIPTION PLEURAL FLUID 10/19/2024 4:34 PM CDT [facility] SPECIAL REQUESTS NO SPECIAL REQUEST 10/19/2024 4:34 PM CDT [facility] GRAM STAIN RESULT MODERATE WHITE BLOOD CELLS SEEN 10/19/2024 6:45 PM CDT [facility] GRAM STAIN RESULT NO ORGANISMS SEEN 10/19/2024 6:45 PM CDT [facility] CULTURE RESULT NO GROWTH 5 DAYS 10/24/2024 10:17 AM CDT [facility] PLEURAL FLUID SPECIMEN / Unknown 10/19/2024 4:33 PM CDT 10/19/2024 4:44 PM CDT us Yosef Padilla DO MICROBIOLOGY - GENERAL ORDERABLE S Final Result [facility] [address] [place] [address], [place] [phone] * CELL COUNT W/ DIFF BODY FLUID (10/19/2024 4:33 PM CDT) Only the most recent of4 resultswithin the time period is included. SOURCE (FLUID) PLEURAL FLUID 025 4:34 PM CDT [facility] VOLUME (FLUID) 1,470.0 mL 10/19/2024 7:36 PM CDT [facility] COLOR (FLUID) JACKIE 10/19/2024 7:36 PM CDT [facility] TURBIDITY EXTREMELY TURBID 10/19/2024 7:36 PM CDT [facility] RBC (FLUID) 14,327 CELLS/UL 10/19/2024 7:36 PM CDT [facility] Comment: The reference range and other method performance specifications have not been established for this assay on body fluids. The test result should be integrated into the clinical context for interpretation and utilized in comparison to blood concentrations of the analyte as appropriate. TOTAL NUCLEATED CELL COUNT 2,489 CELLS/UL 10/19/2024 7:36 PM CDT [facility] Comment: The reference range and other method performance specifications have not been established for this assay on body fluids. The test result should be integrated into the clinical context for interpretation and utilized in comparison to blood concentrations of the analyte as appropriate. SEGS (FLUID) 73 % 10/19/2024 7:36 PM CDT [facility] Comment: The reference range and other method performance specifications have not been established for this assay on body fluids. The test result should be integrated into the clinical context for interpretation and utilized in comparison to blood concentrations of the analyte as appropriate. LYMPHS (FLUID) 4 % 10/19/2024 7:36 PM CDT [facility] Comment: The reference range and other method performance specifications have not been established for this assay on body fluids. The test result should be integrated into the clinical context for interpretation and utilized in comparison to blood concentrations of the analyte as appropriate. OTHER MONONUCLEAR CELLS (FLD) 23 % 10/19/2024 7:36 PM CDT [facility] Comment: THE FOLLOWING MAY INCLUDE MONOCYTE/MACROPHAGE,PLASMA [...] FLUIDS AND STOOLS ORDERABLE S Final Result [facility] [address] [place] [address], [place] [phone] * TRANSFUSE RED BLOOD CELLS (10/19/2024 4:28 [...] 3:04 PM Narrative 10/19/2024 3:30 PM CDT [facility] [address] [place], [place] [address] Procedure: Ultrasound chest Exam Date/Time: 10/19/2024 2:09 [...] a percutaneous chest tube drainage is recommended. Lacquer Sprayer: Dr. Church Procedure Note Geetha Church MD - 10/19/2024 [facility] [address] [place], [place] [address] Procedure: Ultrasound chest Exam Date/Time: 10/19/2024 2:09 PM Indication: 44 female. Left pleural effusion. Comparison: CT chest abdomen pelvis 10/18/2024 and 10/13/2024. Technique: Ultrasound of the left posterior chest performed.. Findings: Ultrasound of the left posterior chest was performed initiallyas survey for requested thoracentesis. There is however a large complexmulti loculated multiseptated collection for which a percutaneous chesttube drainage is recommended. Lacquer Sprayer: Dr. Church =====IMPRESSION:===== 1. Left large complex multiloculated multiseptated fluid collection.. 2. Left pleural percutaneous drainage catheter recommended. Ordered By: YOSEF PADILLA Interpreted By: Geetha Church MD, 10/19/2024 3:04 PM us Yosef Padilla DO ULTRASOUND Final Result * PTT, PARTIAL THROMBOPLASTIN TIME (10/19/2024 11:21 AM CDT) PTT 35.0 25.1 - 36.5 SEC 10/19/2024 11:59 AM CDT [facility] 10/19/2024 11:2 1 AM CDT us Yosef Padilla DO LABORATORY Final Result [facility] [address] [place] [address], * (ABNORMAL) PROTIME/INR, VENOUS (10/19/2024 11:21 AM CDT) Only the most recent of3 resultswithin the time period is included. PROTIME 19.1(H) 10.2 - 12.9 SEC 10/19/2024 11:59 AM CDT [facility] INR 1.7 10/19/2024 11:59 AM CDT [facility] Comment: Recommended INR Therapeutic Goals: 2.0-3.0 Routine Therapy 2.5-3.5 Mechanical Prosthetic Valves (High Risk) 10/19/2024 11:2 1 AM CDT Yosef Padilla DO LABORATORY Final Result [facility] [address] [place] [address], [place] [phone] * CYTOLOGY GENERIC (10/19/2024 12:00 AM CDT) Only the most recent of3 resultswithin the time period is included. CYTOLOGY OTHER [facility] Department of Laboratory Medicine [address] [place] [phone] , extension [phone] Pathology Report Non-gynecologic Cytology Report Name: NIDHI SMART Specimen #: [id number] Age: 1 1980 (Age: 44) Location: [facility] Sex: F Procedure Date: 10/19/2024 Hospital #: [id number] Date Received: 10/21/2024 Date Reported: 10/25/2024 Provider: [...] interpretation, and sign out were performed at [facility], [address] [place] [address]. Electronically Signed Out GARRY JOHNSON MD [facility] 10/19/2024 10/21/2024 10: 11 AM CDT Comment:PLEURAL FLUID, LEFT us Candis Moreno MD PATHOLOGY/CYTOLOGY ORDERABLES Fi nal Result [facility] [address] [place] [address], [id number] * (ABNORMAL) URINALYSIS (10/18/2024 10:12 PM CDT) SPECIMEN TYPE URINE CLEAN CATCH 10/18/2024 10:13 PM CDT [facility] COLOR (U) LIGHT YELLOW 10/18/2024 10:33 PM CDT [facility] TRANSPARENCY TURBID 10/18/2024 10:33 PM CDT [facility] SPECIFIC GRAVITY (U) 1.019 1.001 - 1.030 10/18/2024 10:33 PM CDT [facility] U PH 7.0 5.0 - 9.0 10/18/2024 10:33 PM CDT [facility] LEUKOCYTES (U) 75(A) NEGATIVE 10/18/2024 10:33 PM CDT [facility] NITRITES NEGATIVE NEGATIVE 10/18/2024 10:33 PM CDT [facility] PROTEIN RANDOM (U) 300(H) <30 MG/DL 10/18/2024 10:33 PM CDT [facility] GLUCOSE (U) 300(A) NORMAL MG/DL 10/18/2024 10:33 PM CDT [facility] KETONES MG/DL (U) NEGATIVE NEGATIVE MG/DL 10/18/2024 10:33 PM CDT [facility] UROBILINOGEN NORMAL NORMAL MG/DL 10/18/2024 10:33 PM CDT [facility] BILIRUBIN (U) NEGATIVE NEGATIVE MG/DL 10/18/2024 10:33 PM CDT [facility] BLOOD (U) 1+(A) NEGATIVE 10/18/2024 10:33 PM CDT [facility] MUCUS RARE /LPF 10/18/2024 10:33 PM CDT [facility] WBC/HPF 24(H) <6 /HPF 10/18/2024 10:33 PM CDT [facility] WBC CLUMPS PRESENT 10/18/2024 10:33 PM CDT [facility] RBC/HPF <1 <6 /HPF 10/18/2024 10:33 PM CDT [facility] BACTERIA (U) RARE(A) NONE /HPF 10/18/2024 10:33 PM CDT [facility] SQUAMOUS EPITHELIALS MANY /HPF 10/18/2024 10:33 PM CDT [facility] URINE SPECIMEN OBTAINED BY CLEAN CATCH PROCEDURE / Unknown 10/18/2024 10:12 PM CDT us Candis Moreno MD URINE ORDERABLES Final Result [facility] [address] [place] [address], * (ABNORMAL) URINE BACTERIA CULTURE (10/18/2024 10:12 PM CDT) SPEC DESCRIPTION URINE CLEAN CATCH 10/19/2024 3:27 AM CDT [facility] SPECIAL REQUESTS NO SPECIAL REQUEST 10/19/2024 3:27 AM CDT [facility] CULTURE RESULT >100,000 COL/ML VANCOMYCIN RESISTANT ENTEROCOCCUS FAECIUM FOLLOW ISOLATION PROTOCOL. (A) 10/23/2024 2:12 PM CDT [facility] CULTURE RESULT VRE CALLED TO AND REPEATED BACK BY AMISHA WALKER RN 10/23/24 AT 1412. DA 10/23/2024 2:12 PM CDT [facility] URINE SPECIMEN OBTAINED BY CLEAN CATCH [...] MICROBIOLOGY - GENERAL ORDERABL ES Final Result [facility] [address] [place] [address], * CT CHEST+ABD+PEL WO CON (10/18/2024 5:28 [...] 5:38 PM Narrative 10/18/2024 5:47 PM [address]T [address] [address] EXAMINATION: CT chest/abdomen/pelvis without contrast HISTORY: Shortness [...] osseous abnormalities are identified. Procedure Note Kip Elena DO - 10/18/2024 [facility] [place] [address] EXAMINATION: CT chest/abdomen/pelvis without contrast HISTORY: Shortness [...] By: Kip Elena DO, 10/18/2024 5:38 PM us Candis Moreno MD CT Final Result * (ABNORMAL) LUPUS ANTICOAGULANT EVAL W/RFX (10/18/2024 2:54 PM CDT) LUPUS ANTICOAGULANT REPORT(A) 10/21/2024 5:28 AM CDT [employer] IHSAN PATINO Comment: A Lupus Anticoagulant is [...] Detected For additional information, please refer to http://education.[employer]/faq/PIR94x9 (This link is being provided for informational/ educational purposes only.) This interpretation is based on the following test results. PTT (LUPUS ANTICOAGULANT) 60(H) <=40 sec 10/21/2024 5:28 AM CDT [employer] YATESAnthonyKEVIN PATINO Comment: Test Performed by [employer], [employer] [place], [address] [place], [place] Lino Rashid M.D., Ph.D., Director of Laboratories , [facility] [id number] DRVVT SCREEN 74(H) <=45 sec 10/21/2024 5:28 AM CDT [employer] SHARAnthonyKVEIN PATINO 10/18/2024 2:54 PM CDT us Candis Moreno MD LABORATORY Final Result [facility] [address] [place] [address], * FACTOR V LEIDEN W/ REFLEX (10/18/2024 2:54 PM CDT) FACTOR V LEIDEN NEGATIVE 1:46 AM CDT [employer] YATESAnthonyKEVIN PATINO Comment: FACTOR V LEIDEN (R506Q) VARIANT NOT DETECTED INTERPRETATION REPORT 10/26/2024 1:46 AM CDT [employer] YATESAnthonyKEVIN PATINO Comment: INTERPRETATION: This individual is negative (normal) for the Factor V Leiden (R506Q) variant in the Factor V gene. Increased risk of thrombophilia can be caused by a variety of genetic and non-genetic factors not screened for by this assay. Laboratory testing supervised and results monitored by Jarvis Pitts, Ph.D., [facility], [facility], [facility]. VARIANT ANALYSIS: The Factor V Leiden [...] Health care providers, please contact your local [employer] genetic counselor or call [employer] ([phone]) for assistance with interpretation of these results. This test was developed and its analytical performance characteristics have been determined by [email or web address] [facility]. It has not been cleared or approved by the FDA. This assay has been validated pursuant to the CLIA regulations and is used for clinical purposes. Test performed by [facility] [id number] [place] [id number] [employer] Maintainer: Brunilda Fuentes MD,PHD,PEMA Test Reported by [facility], [address] [place] [address] Lino Rashid M.D., Ph.D., Director of Laboratories , CLIA [id number] 10/18/2024 2:54 PM CDT Candis Moreno MD LABORATORY Final Result [facility] [id number] [place] [address], * (ABNORMAL) HEXAGONAL PHASE CONFIRM (10/18/2024 2:54 PM CDT) HEXAGONAL PHASE CONF POSITIVE( A) Negative 10/21/2024 4:54 AM CDT [employer] IHSAN PATINO Comment: Test Performed by [employer], [address] [place], [place] Lino Rashid M.D., Ph.D., Director of Laboratories , CLIA [id number] 10/18/2024 2:54 PM CDT us Jamari Arthur MD LABORATORY Final Result Performing Organization Address [facility]/ZIP Co de Phone Number [facility] [address] [place], [place] , [place] [phone] * DRVVT CONFIRMATION (10/18/2024 2:54 PM CDT) DRVVT CONFIRMATION Negative Negative 10/21/2024 4:54 AM CDT [employer] SHARTranscribeMeKEVIN PATINO Comment: Test Performed by [employer], [employer] [place], [address] [place], [place] Lino Rashid M.D., Ph.D., Director of Laboratories , [facility] [id number] 10/18/2024 2:54 PM CDT Jamari Arthur MD LABORATORY Final Result Performing Organization Address [facility] Co de Phone Number [facility] [address] [place], [place] , [place] [phone] * CARDIOLIPIN ANTIBODIES (IGG,IGA,IGM) (10/18/2024 2:54 PM CDT) CARDIOLIPIN AB IGG <2.0 <20.0 GPL 2024 10:12 PM CDT [employer] SHARKEVIN PATINO Comment: U/mL Value Interpretation ----- < 20.0 Antibody not detected > or = 20.0 Antibody detected CARDIOLIPIN AB IGM <2.0 <20.0 MPL 2024 10:12 PM CDT [employer] IHSAN PATINO Comment: U/mL Value Interpretation ----- [...] aging. For additional information, please refer to http://education.[employer]/faq/GZK844 (This link is being provided for informational/ educational purposes only.) Test Performed by [employer], [email or web address] [facility], [address] [place] [address] Lino Rashid M.D., Ph.D., Director of Laboratories , [place] [id number] CARDIOLIPIN AB IGA <2.0 <20.0 APL 2024 10:12 PM CDT [employer] YATESKEVIN VINCENT Comment: U/mL Value Interpretation ----- < 20.0 Antibody not detected > or = 20.0 Antibody detected 10/18/2024 2:54 PM CDT Candis Moreno MD LABORATORY Final Result [employer] , * RHEUMATOID FACTOR, QUANT (10/18/2024 2:54 PM CDT) RHEUMATOID FACTOR <10 <15 IU/ML 10/18/2024 3:37 PM CDT [facility] 10/18/2024 2:54 PM CDT Jamari Arthur MD LABORATORY Final Result [facility] [address] [place] [address], [place] [phone] * (ABNORMAL) PROTEIN S ACTIVITY FUNCTIONAL (10/18/2024 2:54 PM CDT) Pathologist [facility] PROTEIN S FUNCTIONAL 58(L) 60 - 140 % normal 10/20/2024 9:06 PM CDT [employer] JOSETTE BADILLO Comment: Decreased levels of Protein S activity may be found in patients with hereditary deficiency, warfarin therapy, vitamin K deficiency, liver disease, DIC, or recent thrombosis as well as after surgery. In addition, it may be physiologic in . Test Performed by [employer], [facility], [address] [place] [address] Lino Rashid M.D., Ph.D., Director of Laboratories , [facility] [id number] 10/18/2024 2:54 PM CDT Candis Moreno MD LABORATORY Final Result Performing Organization Address City/[facility]/ZIP Co de Phone Number [employer] [address] , [place] [phone] * PROTHROMBIN GENE MUTATION (10/18/2024 2:54 PM CDT) [facility] PROTHROMBIN GENE MUTATION NEGATIVE 10/26/2024 1:46 AM CDT [employer] IHSAN PATINO Comment: RESULT: [id number] VARIANT NOT DETECTED INTERPRETATION REPORT 10/26/2024 1:46 AM CDT [employer] IHSAN PATINO Comment: INTERPRETATION: This individual is negative (normal) for the [id number] variant in the Prothrombin/Factor II gene. Increased risk of thrombophilia can be caused by a variety of genetic and non-genetic factors not screened for by this assay. Laboratory testing supervised and results monitored by Jarvis Pitts, Ph.D., FACMG, [facility], [place]. The [id number] mutation [[id number]: g.50155K>A (c.*97G>A)] in the Prothrombin/Factor II gene is the second most common inherited risk factor for thrombosis occurring in approximately 2% of Caucasians. Presence of the mutation is associated with an elevation of prothrombin levels to about 30% above normal in heterozygotes and to 70% above normal in homozygotes. Prothrombin ([id number]) mutations are detected by amplification of their [...] Health care providers, please contact your local [employer] genetic counselor or call [phone] ([phone]) for assistance with interpretation of these results. This test was developed and its analytical performance characteristics have been determined by [email or web address] [facility]. It has not been cleared or approved by the FDA. This assay has been validated pursuant to the CLIA regulations and is used for clinical purposes. Test performed by [employer] [address] [place] [address] [employer] Advanced Operator Maintainer: Brunilda Fuentes MD,PHD,PEMA Test Reported by [facility], [email or web address], [address] [place], [place] Lino Rashid M.D., Ph.D., Director of Laboratories , CLIA [id number] 10/18/2024 2:54 PM CDT Candis Moreno MD LABORATORY Final Result [facility] [address] [place], [place] , * Thrombin Time (10/18/2024 2:54 PM CDT) THROMBIN TIME 19 13 - 19 sec 10/21/2024 5:28 AM CDT [facility] [employer] YATES-CHANTIL LY Comment: Test Performed by [employer], [employer], [address] [place], [place] Lino Rashid M.D., Ph.D., Director of Laboratories , CLIA [id number] 10/18/2024 2:54 PM CDT Jamari Arthur MD LABORATORY Final Result Performing Organization Address City/[facility]/ZIP Co de Phone Number [employer] [address] [place], [place] , [place] [phone] * PROTEIN C, ACTIVITY (10/18/2024 2:54 PM CDT) PROTEIN C FUNCTIONAL 137 70 - 180 % normal 10/20/2024 9:06 PM CDT [facility] YATES-CHANTIL LY Comment: Test Performed by [employer], [employer], [address] [place] [address] Lino Rashid M.D., Ph.D., Director of Laboratories , CLIA [id number] 10/18/2024 2:54 PM CDT Candis Moreno MD LABORATORY Final Result Performing Organization Address City/[facility]/ZIP Co de Phone Number [employer]er[employer] [address] [place], [place] , [place] [phone] * FACTOR X (10/18/2024 2:54 PM CDT) FACTOR X 114 70 - 150 % Normal 10/21/2024 5:09 AM CDT [facility] YATES-CHANTIL LY Comment: Test Performed by [employer], [employer], [address] [place], [place] Lino Rashid M.D., Ph.D., Director of Laboratories , CLIA [id number] 10/18/2024 2:54 PM CDT Candis Moreno MD LABORATORY Final Result Performing Organization Address [facility]/ZIP Co de Phone Number [employer] [address] , [place] [phone] * ANTITHROMBIN III ACTIVITY (10/18/2024 2:54 PM CDT) ANTITHROMBIN III ACTIVITY 89 80 - 135 % normal 10/20/2024 9:06 PM CDT [employer] SHARCONCETTA BADILLO Comment: Test Performed by [employer], [facility], [address] [place] [address] Lino Rashid M.D., Ph.D., Director of Laboratories , CLIA [id number] 10/18/2024 2:54 PM CDT Candis Moreno MD LABORATORY Final Result Performing Organization Address [facility]/ZIP Co de Phone Number [employer] , [place] [phone] * ANTINUCLEAR ANTIBODY WI RFX (JAYA) (10/18/2024 2:00 PM CDT) JAYA 0.3 10/19/2024 11:50 AM CDT [facility] Comment: NEGATIVE: <0.7 RATIO JAYA PROFILE AND TITER NOT PERFORMED THE JAYA SCREEN TESTS FOR THE FOLLOWING ANTIBODIES BY EIA: SSA1 (RO), SSB1 (LA), PETERS, SCL70, JO1, CENTROMERE, PROCESSOR INSPECTOR HISTONE MUST BE ORDERED SEPARATELY DNA (DS) ANTIBODY 1.7 IU/ML 025 11:50 AM CDT [facility] Comment: NEGATIVE: <10 IU/mL EQUIVOCAL: 10 to 15 IU/mL POSITIVE: >15 IU/mL THIS QUANTITATIVE ASSAY IS CALIBRATED TO THE [employer]'S WO/80 STANDARD. THE LEVEL OF dsDNA AUTOANTIBODY GERERALLY CORRELATES WITH THE LEVEL OF DISEASE ACTIVITY IN SYSTEMIC LUPUS ERYTHMATOSUS 10/18/2024 2:00 PM CDT Jamari Arthur MD LABORATORY Final Result Performing Organization Address [facility] Co de Phone Number [facility] [address] [place] [phone], [phone] * (ABNORMAL) CYCLIC CITRULLINATED PEPTIDE (CCP)ANTIBODY(IGG) (10/18/2024 2:00 PM CDT) CITRULLINE PEPTIDE ANTIBODY 26(H) <20 Units 10/23/2024 11:12 AM CDT [employer] JOSETTE BADILLO Comment: Negative: <20 Weak Positive: 20 - 39 Moderate Positive: 40 - 59 Strong Positive: >59 Test Performed by [employer], [facility], [address] [place] [address] Lino Rashid M.D., Ph.D., Director of Laboratories , [facility] [id number] 10/18/2024 2:00 PM CDT Jamari Arthur MD LABORATORY Final Result Performing Organization Address [facility] Co de Phone Number [facility]ITAL[facility] [address] [place] [address] , * BLOOD SMEAR PERIPHERAL INTERP PHYS W/WRIT REPORT (10/18/2024 2:00 PM CDT) SMEAR TO PATHOLOGIST SEE PATHOLOGY REPORT. 10/21/2024 7:15 AM CDT [facility] 10/18/2024 2:00 PM CDT Candis Moreno MD LABORATORY Final Result [facility] [address] [place] [address], * (ABNORMAL) PHOSPHORUS, INORGANIC PHOSPHATE (10/18/2024 2:00 PM CDT) Only the most recent of3 resultswithin the time period is included. PHOSPHORUS 5.8(H) 2.5 - 4.9 MG/DL 10/18/2024 3:02 PM CDT [facility] 10/18/2024 2:00 PM CDT us Candis Moreno MD LABORATORY Final Result Performing Organization Address [facility] Co de Phone Number [facility] [address] [place] [address], [place] [phone] * (ABNORMAL) FERRITIN (10/18/2024 2:00 PM CDT) Only the most recent of2 resultswithin the time period is included. FERRITIN 2,302.9(H) 8.0 - 388.0 NG/ML 10/18/2024 3:41 PM CDT [facility] 10/18/2024 2:00 PM CDT us Candis Moreno MD LABORATORY Final Result [facility] [address] [place] [address], * Pathology (10/18/2024 12:00 AM CDT) PATHOLOGY [facility] Department of Laboratory Medicine [address] [place] [address] , extension [phone] Pathology Report Peripheral Smear Report Name: NIDHI SMART Specimen #: [id number] Age: 1 1980 (Age: 44) Location: [id number] Sex: F Procedure Date: 10/18/2024 [facility] #: [id number] Date Received: 10/19/2024 Date Reported: 10/20/2024 Provider: [...] case was interpreted and signed out at [facility], [address] [place] [address]. [facility] 10/18/2024 10/19/2024 10: 10 AM CDT Comment:Peripheral blood us Wagner Paz MD,PHD PATHOLOGY/CYTOLOGY ORDERAB LES Final Result [facility] [address] [place] [address], [phone] * (ABNORMAL) HEPATIC FUNCTION PANEL (10/17/2024 3:17 PM CDT) TOTAL PROTEIN S/P/B 6.7 6.4 - 8.2 G/DL 10/17/2024 3:52 PM CDT [facility] ALBUMIN S/P/B 1.4(L) 3.4 - 5.0 G/DL 10/17/2024 3:52 PM CDT [facility] BILIRUBIN TOTAL S/P/B 0.4 0.2 - 1.2 MG/DL 10/17/2024 3:52 PM CDT [facility] Comment: THIS ASSAY IS NOT RECOMMENDED FOR PATIENTS UNDERGOING TREATMENT WITH ELTROMBOPAG DUE TO THE POTENTIAL FOR FALSELY ELEVATED RESULTS. BILIRUBIN DIRECT S/P/B <0.1 0.0 - 0.20 MG/DL 10/17/2024 3:52 PM CDT [facility] BILIRUBIN INDIRECT S/P/B NOT CALCULATED 0.0 - 0.9 MG/DL 10/17/2024 3:52 PM CDT [facility] ALKALINE PHOSPHATASE S/P/B 203(H) 50 - 136 U/L 10/17/2024 3:52 PM CDT [facility] AST 12(L) 15 - 37 U/L 10/17/2024 3:52 PM CDT [facility] ALT 22 14 - 55 U/L 10/17/2024 3:52 PM CDT [facility] A/G RATIO 0.3(L) 1.0 - 2.0 RATIO 10/17/2024 3:52 PM CDT [facility] 10/17/2024 3:17 PM CDT Jamari Arthur MD LABORATORY Final Result [facility] [address] [place] [address], [place] [phone] * (ABNORMAL) AMMONIA (10/17/2024 3:17 PM CDT) AMMONIA 34(H) 11 - 32 UMOL/L 10/17/2024 4:00 PM CDT [facility] 10/17/2024 3:17 PM CDT Jamari Arthur MD LABORATORY Final Result [facility] [address] [place] [address], [place] [phone] * XR HAND LT 3V (10/17/2024 12:23 [...] 5:26 PM Narrative 10/17/2024 5:31 PM CDT [facility] [address] [place], [place] [address] IMAGING STUDIES: XR HAND LT 3V DATE: [...] Procedure Note Trav Arshad MD - 10/17/[address] [address] IMAGING STUDIES: XR HAND LT 3VDATE: 10/17/2024 12:07 PM HISTORY: pain 44-year-old female. Current inpatient. Diffuse lefthand pain. COMPARISON: Right hand 10/11/2024. No prior left hand studies at [facility]. DISCUSSION: Portable AP, oblique, and lateral views [...] [facility] Pat.Name: NIDHI SMART Pat.ID: [id number] .Date: 10/17/2024 Refer.MD: Sulema Lennon Exam Time: 8:30:00 AM Study Type:EMMANUEL VS Venous Duplex Arm Lt Height: 63 in Age: 1 1980,44Y Sex: F Sonogrphr: Lon OSKAR Soto, RVT History / Clinical:hx of rue dvt, [...] [facility] Pat.Name: NIDHI SMART Pat.ID: [id number] .Date: 10/17/2024 Refer.MD: Sulema Lennon Exam Time: 8:30:00 AM Study Type:EMMANUEL VS Venous Duplex Arm Lt Height: 63 in Age: 1 1980,44Y Sex: F Sonogrphr: Lon OSKAR Soto, RVT History / Clinical:hx of rue dvt, [...] Signature> 10/18/2024 08:33 PM Raulito Valdez M.D. Jamari Arthur MD [facility] Final Result * USE ECHOCARDIOGRAM (10/16/2024 5:02 PM CDT) Anatomical Region Laterality Modality Cardiac Echocardiogram 10/16/2024 4:07 PM CDT Narrative 10/16/2024 5:49 PM CDT Echocardiography Report Pat.Name: NIDHI SMART Pat.ID: [id number] .Date: 10/16/2024 Exam Time: 4:07:00 PM Study Type:ECHO WITH CARDIAC DOPPLER COMP Height: 63 in Weight: 222 lb BSA: 2.02 m2 Age: 1 1980,44Y Sex: F BP: 149/63 Sonogrphr: SS RDBRIDGER Pat. Stat.:Inpatient Room: [facility] Reason for Study:Gram + bacteremia, r/o [...] 38.5 mm Right and Left 0.564 [place] 86.1 mm Ventricular Septum IVSd 1.36 cm [...] 10/16/2024 Echocardiography Report Pat.Name: NIDHI SMART Pat.ID: [id number] .Date: 10/16/2024 Exam Time: 4:07:00 PM Study Type:ECHO WITH CARDIAC DOPPLER COMP Height: 63 in Weight: 222 lb BSA: 2.02 m2 Age: 1 1980,44Y Sex: F BP: 149/63 Sonogrphr: SS [facility] Pat. Stat.:Inpatient Room: [facility] Reason for Study:Gram + bacteremia, r/o [...] 38.5 mm Right and Left 0.564 [place] 86.1 mm Ventricular Septum IVSd 1.36 cm [...] HEMOGLOBIN AND HEMATOCRIT (10/15/2024 12:20 PM CDT) HGB 7.1(L) 12.0 - 16.0 G/DL 10/15/2024 12:59 PM CDT [facility] HCT 23.1(L) 38.0 - 48.0 % 10/15/2024 12:59 PM CDT [facility] 10/15/2024 12:2 0 PM CDT Jamari Arthur MD LABORATORY Final Result [facility] [address] [place] [address], [place] [phone] * HEPATITIS B POST-VACCINE ANTIBODY (10/14/2024 5:10 AM CDT) HEP B SURFACE AB 83.57 mIU/mL 10/14/2024 6:34 AM CDT [facility] Comment: REFERENCE RANGE >=12.00 PATIENT DOES HAVE IMMUNITY TO HEPATITIS B VIRUS 10/14/2024 5:10 AM CDT Kathi Pimentel MD LABORATORY Final Res ult [facility] [address] [place] [address], [place] [phone] * (ABNORMAL) IRON SAT PANEL (IRON,IBC,%SAT) (10/14/2024 5:10 AM CDT) IRON 37(L) 50.0 - 170.0 MCG/DL 10/14/2024 6:26 AM CDT [facility] IRON BINDING CAPACITY 129(L) 250 - 450 MCG/DL 10/14/2024 6:26 AM CDT [facility] IRON SATURATION 29 20 - 55 % 6:26 AM CDT [facility] 10/14/2024 5:10 AM CDT Candis Moreno MD LABORATORY Final Result Performing Organization Address City/[facility]/ZIP Co de Phone Number [facility] [address] [place] [address], [place] [phone] * (ABNORMAL) VITAMIN B-12 (10/14/2024 5:10 AM CDT) VITAMIN B12 S/P/B 1,874(H) 254 - 1,320 PG/ML 10/14/2024 7:11 AM CDT [facility] 10/14/2024 5:10 AM CDT us Candis Moreno MD LABORATORY Final Result [facility] [address] [place] [address], [place] [phone] * (ABNORMAL) TRANSFERRIN (10/14/2024 5:10 AM CDT) Pathologist [facility] TRANSFERRIN 95(L) 200 - 360 mg/dL 10/14/2024 6:26 AM CDT [facility] 10/14/2024 5:10 AM CDT Candis Moreno MD LABORATORY Final Result [facility] [address] [place] [address], [place] [phone] * HEPATITIS B SURFACE AG, EIA (10/14/2024 5:10 AM CDT) [facility] HEPATITIS B SURFACE AG NON-REACTI VE NON-REACTI VE 10/14/2024 6:44 AM CDT [facility] 10/14/2024 5:10 AM CDT Kathi Pimentel MD LABORATORY Final Res ult Performing Organization Address City/[facility]/ZIP Co de Phone Number [facility] [address] [place] [address], [place] [phone] * FOLIC ACID SERUM (10/14/2024 5:10 AM CDT) Pathologist [facility] FOLATE 3.2 3.1 - 17.5 NG/ML 10/14/2024 7:11 AM CDT [facility] 10/14/2024 5:10 AM CDT us Candis Moreno MD LABORATORY Final Result Performing Organization Address City/[facility]/ZIP Co de Phone Number [facility] [address] [place] [address], [place] [phone] * MAGNESIUM (10/13/2024 5:39 PM CDT) Pathologist [facility] MAGNESIUM 1.9 1.8 - 2.4 MG/DL 10/13/2024 6:18 PM CDT [facility] 10/13/2024 5:39 PM CDT Anuja Newman MD LABORATORY Final Result [facility] [address] [place] [address], [place] [phone] * (ABNORMAL) CULTURE, BLOOD, PCR PANEL (10/13/2024 3:42 PM CDT) [facility] METHICILLIN RESISTANT GENE PCR (BLD) DETECTED(A) NOT DETECTED 10/14/2024 9:42 AM CDT [facility] Comment: Note: Antimicrobial resistance can occur via multiple mechanisms. A NOT DETECTED result from the [employer] antimicrobial resistance gene assay does not indicate antimicrobial susceptibility. A DETECTED result for a genetic marker of antimicrobial resistance gene assay does not indicate antimicrobial susceptibility. Subculturing is required for species identification and susceptibility testing of isolates. ENTEROCOCCUS FAECALIS PCR (BLD) NOT DETECTED NOT DETECTED 10/14/2024 9:42 AM CDT [facility] ENTEROCUCCUS FAECIUM PCR (BLD) NOT DETECTED NOT DETECTED 10/14/2024 9:42 AM CDT [facility] LISTERIA MONOCYTOGENES PCR (BLD) NOT DETECTED NOT DETECTED 10/14/2024 9:42 AM CDT [facility] STAPH SPECIES PCR (BLD) DETECTED(A) NOT DETECTED 10/14/2024 9:42 AM CDT [facility] Comment: CALLED BLOOD CULTURE PCR RESULT TO AND REPEATED BACK BY LIU CALVIN IN PHARMACY AT [phone] DY STAPH AUREUS PCR (BLD) NOT DETECTED NOT DETECTED 10/14/2024 9:42 AM CDT [facility] STAPHYLOCOCCUS EPIDERMIDIS PCR (BLD) DETECTED(A) NOT DETECTED 10/14/2024 9:42 AM CDT [facility] STAPHYLOCOCCUS LUGDUNENSIS PCR (BLD) NOT DETECTED NOT DETECTED 10/14/2024 9:42 AM CDT [facility] STREPTOCOCCUS PCR (BLD) NOT DETECTED NOT DETECTED 10/14/2024 9:42 AM CDT [facility] STREP AGALACTIAE PCR (BLD) NOT DETECTED NOT DETECTED 10/14/2024 9:42 AM CDT [facility] STREP PNEUMONIAE PCR (BLD) NOT DETECTED NOT DETECTED 10/14/2024 9:42 AM CDT [facility] STREP PYOGENES (GRP A) PCR (BLD) NOT DETECTED NOT DETECTED 10/14/2024 9:42 AM CDT [facility] ACINETOBACTER BAUMANII PCR (BLD) NOT DETECTED NOT DETECTED 10/14/2024 9:42 AM CDT [facility] BACTEROIDES FRAGILIS PCR (BLD) NOT DETECTED NOT DETECTED 10/14/2024 9:42 AM CDT [facility] ENTEROBACTERIACEAE PCR (BLD) NOT DETECTED NOT DETECTED 10/14/2024 9:42 AM CDT [facility] ENTEROBACTER CLOACAE COMP PCR (BLD) NOT DETECTED NOT DETECTED 10/14/2024 9:42 AM CDT [facility] ESCHERICHIA COLI PCR (BLD) NOT DETECTED NOT DETECTED 10/14/2024 9:42 AM CDT [facility] KLEBSIELLA AEROGENES PCR (BLD) NOT DETECTED NOT DETECTED 10/14/2024 9:42 AM CDT [facility] KLEBSIELLA OXYTOCA PCR (BLD) NOT DETECTED NOT DETECTED 10/14/2024 9:42 AM CDT [facility] KLEBSIELLA PNEUMONIAE PCR (BLD) NOT DETECTED NOT DETECTED 10/14/2024 9:42 AM CDT [facility] PROTEUS PCR (BLD) NOT DETECTED NOT DETECTED 10/14/2024 9:42 AM CDT [facility] SALMONELLA PCR (BLD) NOT DETECTED NOT DETECTED 10/14/2024 9:42 AM CDT [facility] SERRATIA MARCESCENS PCR (BLD) NOT DETECTED NOT DETECTED 10/14/2024 9:42 AM CDT [facility] H. INFLUENZAE PCR (BLD) NOT DETECTED NOT DETECTED 10/14/2024 9:42 AM CDT [facility] N. MENINGITIDIS PCR (BLD) NOT DETECTED NOT DETECTED 10/14/2024 9:42 AM CDT [facility] PSEUDOMONAS AERUGINOSA PCR (BLD) NOT DETECTED NOT DETECTED 10/14/2024 9:42 AM CDT [facility] STENOTROPHOMONAS MALTOPHILIA PCR (BLD) NOT DETECTED NOT DETECTED 10/14/2024 9:42 AM CDT [facility] LENORE ALBICANS PCR (BLD) NOT DETECTED NOT DETECTED 10/14/2024 9:42 AM CDT [facility] LENORE AURIS PCR (BLD) NOT DETECTED NOT DETECTED 10/14/2024 9:42 AM CDT [facility] LENORE GLABRATA PCR (BLD) NOT DETECTED NOT DETECTED 10/14/2024 9:42 AM CDT [facility] LENORE KRUSEI PCR (BLD) NOT DETECTED NOT DETECTED 10/14/2024 9:42 AM CDT [facility] LENORE PARAPSILOSIS PCR (BLD) NOT DETECTED NOT DETECTED 10/14/2024 9:42 AM CDT [facility] LENORE TROPICALIS PCR (BLD) NOT DETECTED NOT DETECTED 10/14/2024 9:42 AM CDT [facility] CRYPTOCOCCUS NEOFORMANS/GATTII PCR (BLD) NOT DETECTED NOT DETECTED 10/14/2024 9:42 AM CDT [facility] 10/13/2024 3:42 PM CDT Jamari Arthur MD MICROBIOLOGY - GENERAL ORDERA BLES Final Result Performing Organization Address City/[facility]/ZIP Co de Phone Number [facility] [address] [place] [address], * MRSA SCREENING (10/13/2024 2:20 PM CDT) SPEC DESCRIPTION NASAL 10/13/2024 2:27 PM CDT [facility] SPECIAL REQUESTS NO SPECIAL REQUEST 10/13/2024 2:27 PM CDT [facility] CULTURE RESULT NO METHICILLIN RESISTANT STAPHYLOCOCCUS AUREUS ISOLATED 10/14/2024 12:00 PM CDT [facility] SPECIMEN FROM INTERNAL NOSE / Unknown 10/13/2024 2:20 PM CDT 10/13/2024 4:35 PM CDT Candis Moreno MD MICROBIOLOGY - GENERAL ORDERABLE S Final Result Performing Organization Address [facility] Co de Phone Number [facility] [address] [place] [address], * CTA CHEST (10/13/2024 8:08 AM CDT) [...] 8:16 AM Narrative 10/13/2024 8:42 AM CDT [facility] [address] [place], [place] [address] IMAGING STUDIES: CTA CHEST DATE: 10/13/2024 7:56 AM HISTORY: pilmonary embolism 44-year-old female. Current inpatient. History includes type 2 diabetes, stage V chronic kidney disease, hypertension, and hyperlipidemia. Patient reportedly on nightly peritoneal dialysis. COMPARISON: No pertinent comparison exam at this institution. Report from single view chest 09/13/2024 at [facility]. DISCUSSION: CTA chest following intravenous administration 80 [...] Procedure Note Trav Arshad MD - 10/13/[address] [address] IMAGING STUDIES: CTA CHESTDATE: 10/13/2024 7:56 AM HISTORY: pilmonary embolism 44-year-old female. Current inpatient.History includes type 2 diabetes, stage V chronic kidney disease,hypertension, and hyperlipidemia. Patient reportedly on nightly peritonealdialysis. COMPARISON: No pertinent comparison exam at this institution. Report fromsingle view chest 09/13/2024 at [facility]. DISCUSSION: CTA chest following intravenous administration 80 [...] Interpreted By: Trav Arshad, 10/13/2024 8:16 AM Candis Moreno MD CT Final Result * HEPARIN, ANTI XA, UFH (10/12/2024 8:46 AM CDT) Only the most recent of4 resultswithin the time period is included. HEPARIN ANTI XA UFH 0.38 0.30 - 0.70 IU/ML 10/12/2024 9:26 AM CDT [facility] Comment: UFH Therapeutic Anti Xa Ranges: Medical Therapeutic Range: 0.30 - 0.70 IU/mL Cardiac Therapeutic Range: 0.30 - 0.50 IU/mL Neuro Therapeutic Range: 0.20 - 0.40 IU/mL 10/12/2024 8:46 AM CDT Alka Contreras MD LABORATORY Final Resu lt [facility] [address] [place] [address], * CT HEAD WO CON (10/11/2024 3:25 [...] 4:01 PM Narrative 10/11/2024 4:11 PM CDT [facility] [address] [place], [place] [address] EXAMINATION: NONENHANCED CT SCAN OF THE BRAIN [...] Procedure Note Anna Angulo MD - 10/11/[address] [address] EXAMINATION: NONENHANCED CT SCAN OF THE BRAIN CLINICAL INDICTION: 44-year-old female. Reason for examination: Unwitnessed fall on heparin drip. .10/11/2024 3:21 PM, Kelsie Kern: UNWITNESSED FALL ON HEPARIN DRIP TECHNIQUE: Routine [...] 4:11 PM Narrative 10/11/2024 4:18 PM CDT [address] [address] CLINICAL INDICATION: 44-year-old female. Reason for examination: [...] Procedure Note Anna Angulo MD - 10/11/[address] [address] CLINICAL INDICATION: 44-year-old female. Reason for examination: [...] 4:11 PM Narrative 10/11/2024 4:18 PM CDT [address] [address] CLINICAL INDICATION: 44-year-old female. Reason for examination: [...] Procedure Note Anna Angulo MD - 10/11/[address] [address] CLINICAL INDICATION: 44-year-old female. Reason for examination: [...] IMAGING RIGHT UPPER EXTREMITY VASCULAR LAB Pat.Name: MONI SMARTYola Pat.ID: [id number] .Date: 10/11/2024 Refer.MD: Sulema Lennon Exam Time: 7:49:00 AM Study Type:EMMANUEL VS Venous Duplex Arm Rt Age: 1 1980,44Y Sex: F Sonogrphr: Madison Rodrigues Soraya Pat. Stat.:Inpatient Room: [facility] History / Clinical:Pain to right hand, severe [...] UPPER EXTREMITY VASCULAR LAB Pat.Name: NIDHI SMART.ID: [id number] .Date: 10/11/2024 Refer.MD: Sulema Lennon Exam Time: 7:49:00 AM Study Type:EMMANUEL VS Venous Duplex Arm Rt Age: 1 1980,44Y Sex: F Sonogrphr: Madison Rodrigues RVT Pat. 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
--- OUTSIDE RECORDS SUMMARY | 2024-12-14 08:52 | XMS_ITS | Encounter Summary ---
Author Organization [facility] Address [address] [place] [address] Care Team Providers Care Dog And Cat Food Cook Name Role Phone Sulema Lennon WATERWORKS PUMP STATION OPERATOR Primary Care Provider [phone] Reason for Visit * Reason Onset Date Comments Advice 10/31/2024 Nurse Triage - A fter Hours ([id number]) Encounter Details Date Type Department Care Team (Late st Contact Info) Description 10/31/2024 Telephone [place] [address] [address] [facility] [address] [place] [phone] Sulema Lennon, WATERWORKS PUMP STATION OPERATOR [address] [place] [address] Advice (Nurse Triage - After Hours ([id number])/) Social History Tobacco Use Types Packs/Day Years [...] materials from doctor or pharmacy Sometimes 10/30/2024 [facility] Utilities Answer Date Recorded In the [...] any time in the past 12 m [facility], were you homeless or living in a group home (including now)? No 10/11/2024 Comments Unknown Sex [...] AM CDT Nurse Triage - After Hours ([id number]) Comments Critical Lab Result Regarding: Hospice / Location Unknown / Dr. Mccarthy Regarding: Hospice -[facility] Assessment Notes PC from [facility] lab with critical results. Reports creatinine 6.88. PC to OC Cindy Bruce and advised of results. CALL PCP WITHIN 24 HOURS:CARE ADVICE given per PCP Call - No Triage (Adult) guideline. 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
[2024-12-14 09:31] LABS: Hematocrit 29.0 % (37.0-47.0); Hemoglobin 8.8 g/dL (12.0-15.0); Immature Granulocyte Percent A 0.1 % (0-0.5); Lymphocytes Absolute Auto 2.57 K/mm3 (0.9-3.2); Mean Corpuscular HGB Conc 30.3 g/dl (32-36); Mean Corpuscular Hemoglobin 25.2 pg (26-34); Mean Corpuscular Volume 83.1 fl (80-100); Nucleated Red Blood Cells Absolute Auto 0.000 K/mm3 (0.0-0.012); Nucleated Red Blood Cells Perc 0.0 % (0.0-0.2); Platelet Count Result 207 k/mm3 (150-375); Red Blood Count 3.49 M/mm3 (4.2-5.4); White Blood Count 7.3 K/mm3 (4.5-10.0)
[2024-12-14 09:44] LABS: Alanine Aminotransferase 31 U/L (6-35); Albumin Level 3.9 g/dL (3.5-5.1); Alkaline Phosphatase 353 U/L (38-126); Anion Gap 7 mmol/L (4-12); Aspartate Amino Transferase 39 U/L (14-36); Bilirubin,Total 0.7 mg/dL (0.2-1.3); Blood Urea Nitrogen 36 mg/dL (7-17); Calcium 9.5 mg/dL (8.4-10.2); Carbon Dioxide 33 mmol/L (22-30); Chloride 99 mmol/L (98-107); Estimated Glomerular Filt Rate 6; Glucose 87 mg/dL (65-110); Lipase 156 U/L (23-300); Potassium 4.4 mmol/L (3.4-5.0); Sodium 139 mmol/L (137-145); Total Protein 8.3 g/dL (6.3-8.2)
[2024-12-14 09:46] LABS: Add Urine Microscopic? YES; Appearance Urine Clear (Clear); Glucose Urine UA Trace mg/dL (Negative); Leukocyte Esterase Ur Negative LEU/UL (Negative); Nitrate Urine Negative (Negative); Non Pathogenic Casts 0-2; Specific Grav Ur 1.015 (1.001-1.035)
[2024-12-14 09:54] LABS: Troponin I 0.013 ng/mL (0.000-0.034)
[2024-12-14 09:56] LABS: INR 1.2; Prothrombin Time 15.3 Seconds (11.1-14.7)
[2024-12-14 09:57] LABS: Partial Thromboplastin Time 32.5 Seconds (22.3-36.8)
--- OUTSIDE RECORDS SUMMARY | 2024-12-14 09:58 | XMS_ITS | Clinical Summary ---
Author Organization [facility] Address [address] [place] [address] Care Team Providers Care Airways Control Specialist Name Role Phone Jessie Dickson LIQUOR STORE MANAGER-DRY MIXER Primary Care Pro vider Source Comments [facility],non-owned Affiliates and Associated Physician Practices is amultiple site organization consisting of ambulatory clinics and hospital sitesin [place], [place], [place] and [place]. This disclosure is being madepursuant to the Care Everywhere program and may not contain all information available regarding this patient. Last updated 17.[facility] Allergies Active Allergy Reactions Criticality Noted Date [...] Each 11 06/10/19 19 Active ergocalciferol (DRISDOL) 33210 units capsule Take 1 capsule by mouth [...] 2 tablet 01/22/20 22 Active HYDROcodone-acetami nophen (Ellamore) 5-325 MG tablet Take 1 (one) tablet [...] on file Legal Sex Female 5:16 PM HULL GRINDER Gender Identity Not on file Sexual Orientation Not on file Last Filed Vital Signs Vital Sign Reading Time Taken Comments Blood Pressure 145/85 02/05/2022 12:[address] irizarry aware; ok to d/cv Pulse 74 02/05/2022 11:55 AM HULL GRINDER Temperature 36.8 C (98.2 F) 09/13/2019 8:22 AM CDT Respiratory Rate 12 02/05/2022 11:5 0 AM HULL GRINDER Oxygen Saturation 100% 02/05/2022 11: 55 AM HULL GRINDER Inhaled Oxygen Concentration - - Weight 108.9 [...] 11/01/2018 10:11 AM CDT us Tessie Pritchard APRN-DRY MIXER LAB - POINT OF CARE O RDERABLES Final Result * HEPATITIS C AB SCREEN RFLX NAAT QUANT (05/28/2018 12:13 PM CDT) Hepatitis C Antibody Non-react javier Non-reac tive 05/28/2018 1:18 PM CDT [facility] Comment: Hepatitis C Antibody screen indicates [...] MD LAB - CHEMISTRY ORDERABLES Final Result [address] [phone] * HIV-1 HIV-2 ANTIGEN/ANTIBODY (05/24/2018 5:08 PM CDT) HIV Antigen/Antibod y 1 & 2 Non-reacti ve Non-react javier 05/24/2018 5:54 PM CDT [facility] Comment: Neither HIV-1 p24 Antigen nor HIV-1/HIV-2 Antibodies are detected. Blood BLOOD SPECIMEN / Unknown Venipuncture / Unknown 05/24/2018 5:08 PM CDT 05/24/2018 5:16 PM CDT us Namita Raymond MD LAB - HEMATOLOGY ORDERABLES Fi nal Result [address] [phone] from Last 3 Months or Most Recently Relevant to Health Maintenance Insurance MEDICARE MEDICAID - [place] [facility] MEDICAID [place]END[place] - [place] MED[place]ID - OUT OF STATE Advance Directives * Full Code (Latest Code Status on File) Date Activated Date Inactivated Comments 05/25/2018 12:57 AM 05/28/2018 5:22 PM * Full Code Date Activated Date Inactivated Comments 05/24/2018 6:24 PM 05/25/2018 12:57 AM Care Teams Airways Control Specialist Relationship Specialty Start Date End Date Jessie Dickson APRN-CNP [address] [phone] PCP - General 06/30/14
--- OUTSIDE RECORDS SUMMARY | 2024-12-14 09:58 | XMS_ITS | Encounter Summary ---
Author Organization [facility] Address [address] [facility] [place] [address] Care Team Providers Care Boat Designer Name Role Phone Jessie Dickson DISASSEMBLER-MANAGER [employer] Primary Care Pro vider Encounter Details Date Type Department Care Team (Late st Contact Info) Description 05/25/2018 Ophth Exam [facility] [place] [address] Regina Fritz MD [address] [place] [address] Social History Tobacco Use Types Packs/Day Years Used Date Smoking Tobacco: Never Smokeless Tobacco: Never Alcohol Use Standard Drinks/Week Comments No 0 (1 standard drink = 0.6 oz pur e alcohol) socially. Comments No Sex and Gender Information Value Date Recorded Sex Assigned at Not on file Legal Sex Female 5:16 PM COTTON GINNER HELPER Gender Identity Not on file Sexual Orientation Not on file documented as of this encounter Functional Status * Functional and Cognitive Status Question Answer Date of Assessment Author Is person deaf or have mynor us hearing difficulty? No 05/25/2018 2:01 AM CDT Shelbie Mar RN Is person blind or have [...] on filedocumented in this encounter Care Teams Boat Designer Relationship Specialty Start Date End Date Jessie Dickson TAMMY-MANAGER [employer] [address] [place] [phone] PCP - General 06/30/14 documented as of this encounter
--- OUTSIDE RECORDS SUMMARY | 2024-12-14 09:58 | XMS_ITS | Clinical Summary ---
Author Organization [facility] Address [address] [place] [address] Phone Care Team Providers Care Claims Support Specialist Name Role Phone Jessie Dickson MD Primary Care Provider [phone] Allergies Active Allergy Reactions Criticality Noted Date [...] times daily. 9 Active ergocalciferol (VITAMIN D2) 69778 units capsule TK 1 C PO Q [...] the skin Active Blood Glucose Monitoring Suppl (SlideJar Verio Flex System) w/Device kit USE DIRECTED [...] Insurance MEDICAID - [place] MEDICARE Care Teams Claims Support Specialist Relationship Specialty Start Date End Date Jessie Dickson MD [facility], [place] [address] PCP - General 05/31/18
[2024-12-14] MEDS: FUROSEMIDE INJ 100 MG/10 ML VIAL 80 MG IV PUSH (10:50)
--- NOTE | 2024-12-14 10:50 | ED.GENADULT ---
HPI - General Adult General Chief complaint: Shortness of Breath/Dyspnea Stated complaint: SOB Time Seen by Provider: 12/14/24 08:42 History of Present Illness HPI narrative: This is a 44-year-old female with end-stage renal disease on hemodialysis presenting shortness of breath. Patient last underwent dialysis yesterday went through a full course. Guide Plant is Dr. Fernandez. Last night she developed shortness of breath. Is not associated with fevers productive cough chest pain. She cannot lay flat. Patient denies peripheral edema. Related Data Home Medications ?Medication ?Instructions ?Recorded ?Confirmed ?Last Taken ?Type lactulose 10 gram/15 mL oral 15 ml PO QHS PRN constipation 11/02/24 11/30/24 11/29/24 History solution sevelamer HCl 800 mg tablet 1,600 mg PO TID 11/02/24 11/30/24 11/29/24 History Allergies Allergy/AdvReac Type Severity Reaction Status Date / Time metronidazole Allergy Intermediate Rash Verified 12/12/24 07:54 omeprazole Allergy Intermediate Rash Verified 12/12/24 07:54 adhesive tape Allergy Mild Itching Verified 12/12/24 07:54 ibuprofen Allergy Unknown Verified 12/12/24 07:54 PMF Past Medical History Medical History Insulin dependent type 2 diabetes mellitus End-stage renal disease on peritoneal dialysis Obesity (BMI 30-39.9) Erythropoietin deficiency anemia Gastroesophageal reflux Arthritis Right wrist left knee Irritable bowel syndrome Diverticulitis Pneumonia Peripheral neuropathy Hypertension Surgical History Surgical History History of section x3 History of dilation and curettage History of appendectomy History of cholecystectomy History of salpingo-oophorectomy History of tubal ligation Family History Family History Mother Diabetes mellitus Breast cancer Sibling History of blood clots due to blood clot Heart disease Sister has something wrong with her heart Father Prostate carcinoma Hypertension Daughter , 06/08/2021, 19yo Pulmonary embolism due to PE Social History Social History Social History: Surrogate medical decision maker: Robert Smith, daughter. Code status: Full code. Smoking status: Never smoker Second hand tobacco smoke exposure: Yes Alcohol intake: never Substance use: current Substance use type: marijuana Do You Feel Safe in your Home?: Yes Lack of Transportation: No Lack of Food: Often True Current Housing: I Have Housing Concerned About Future Housing: No Difficulty Paying Gas/Electric Bills: No Difficulty Paying for Meds: No Currently Unemployed: No Education: Grade School Difficulty w/ Childcare or Family Care: No Living arrangements: with family Additional living arrangements comments: Lives with family in [place]. 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 Spiritual care concerns: No Agree to blood products: Yes Exam Narrative: APPEARANCE: No apparent distress. Head: atraumatic. EYES: EOMI, NOSE: Atraumatic NECK: Trachea midline RESPIRATORY: No increased rate of breathing, bibasilar crackles CARDIOVASCULAR: RRR, +2 pulses in all extremities ABDOMINAL: Non-distended soft nontender no guarding rebound MUSCULOSKELETAl: No obvious deformities NEURO: Alert. Moving 4/4 extremities SKIN:: Warm, dry. Normal color PSYCHIATRIC: Normal affect Course Vital Signs Vital signs: Vital Signs Temperature 97.6 F 12/14/24 08:39 Pulse Rate 71 12/14/24 08:39 Respiratory Rate 19 12/14/24 08:39 Blood Pressure 218/95 H 12/14/24 08:39 Pulse Oximetry 97 12/14/24 08:39 Oxygen Delivery Room Air 12/14/24 08:39 Temperature 97.6 F 12/14/24 08:39 Pulse Rate 74 12/14/24 12:15 Respiratory Rate 18 12/14/24 12:15 Blood Pressure 208/100 H 12/14/24 12:15 Pulse Oximetry 100 12/14/24 12:15 Oxygen Delivery Room Air 12/14/24 10:56 Medical Decision Making MDM Narrative Medical decision making narrative: -Course: 44-year-old female with end-stage renal disease presenting for shortness of breath. She has mild rales on exam but is saturating well on room air. She has orthopnea. She is still creating urine. Patient given 80 mg of Lasix. Blood pressures were elevated she is given a dose of hydralazine. Limiting were reviewed. Imaging showed cardiomegaly and mild pulmonary edema. Rest her workup within normal limits. Patient was re-evaluated and states she is feeling better. She is comfortable going home and going to dialysis tomorrow. I suspect she has some mild fluid overload but does not have any evidence of infection/pneumonia. Patient will be discharged with return precautions. -DDX includes but is not limited to: Fluid overload, pneumonia, viral syndrome Vital Signs Vital Signs: Vital Signs Temperature 97.6 F 12/14/24 08:39 Pulse Rate 71 12/14/24 08:39 Respiratory Rate 19 12/14/24 08:39 Blood Pressure 218/95 H 12/14/24 08:39 Pulse Oximetry 97 12/14/24 08:39 Oxygen Delivery Room Air 12/14/24 08:39 Temperature 97.6 F 12/14/24 08:39 Pulse Rate 74 12/14/24 12:15 Respiratory Rate 18 12/14/24 12:15 Blood Pressure 208/100 H 12/14/24 12:15 Pulse Oximetry 100 12/14/24 12:15 Oxygen Delivery Room Air 12/14/24 10:56 Lab Data 12/14/24 09:26 12/14/24 09:26 Labs: Lab Results 12/14/24 12/14/24 12/14/24 Range/Units 09:26 09:34 11:27 WBC 7.3 (4.5-10.0) K/mm3 RBC 3.49 L (4.2-5.4) M/mm3 Hgb 8.8 L (12.0-15.0) g/dL Hct 29.0 L (37.0-47.0) % MCV 83.1 (80-100) fl MCH 25.2 L (26-34) pg MCHC 30.3 L (32-36) g/dl RDW 18.1 H (11.5-14.5) % Plt Count 207 (150-375) k/mm3 MPV 9.1 (7.4-10.4) fl Immature Gran % (Auto) 0.1 (0-0.5) % Neut % (Auto) 49.0 (45.5-73.1) % Lymph % (Auto) 35.1 (18.3-44.2) % Flagler % (Auto) 7.5 (2.6-8.5) % Eos % (Auto) 7.6 H (0-4.4) % Baso % (Auto) 0.7 (0.2-1.2) % Lymph # (Auto) 2.57 (0.9-3.2) K/mm3 Flagler # (Auto) 0.6 (0.1-0.6) K/mm3 Eos # (Auto) 0.6 H (0-0.3) K/mm3 Baso # (Auto) 0.1 (0.0-0.1) K/mm3 Abs Immat Gran (auto) 0.01 (0.00-0.031) K/mm3 Absolute Neuts (auto) 3.6 (1.3-6.7) K/mm3 Absolute Nucleated RBC 0.000 (0.0-0.012) K/mm3 Nucleated RBC % 0.0 (0.0-0.2) % PT 15.3 H (11.1-14.7) Seconds INR 1.2 APTT 32.5 (22.3-36.8) Seconds Sodium 139 (137-145) mmol/L Potassium 4.4 (3.4-5.0) mmol/L Chloride 99 (98-107) mmol/L Carbon Dioxide 33 H (22-30) mmol/L Anion Gap 7 (4-12) mmol/L BUN 36 H (7-17) mg/dL Creatinine 7.51 H (0.7-1.0) mg/dL Estim Creat Clear Calc Not Reportable Estimated GFR 6 L (59 - ) Glucose 87 (65-110) mg/dL Calcium 9.5 (8.4-10.2) mg/dL Total Bilirubin 0.7 (0.2-1.3) mg/dL AST 39 H (14-36) U/L ALT 31 (6-35) U/L Alkaline Phosphatase 353 H (38-126) U/L Troponin I 0.013 < 0.012 (0.000-0.034) ng/mL Total Protein 8.3 H (6.3-8.2) g/dL Albumin 3.9 (3.5-5.1) g/dL Lipase 156 (23-300) U/L Urine Color Yellow (Yellow) Urine Appearance Clear (Clear) Urine pH >=9.0 H (5.0-9.0) Ur Specific [place] 1.015 (1.001-1.035) Urine Protein 4+ H (Negative) mg/dL Urine Glucose (UA) Trace H (Negative) mg/dL Urine Ketones Negative (Negative) mg/dL Ur Blood (Man) 1+ H (Negative) Urine Nitrate Negative (Negative) Urine Bilirubin Negative (Negative) Urine Urobilinogen 0.2 (<2.0) mg/dL Leukocyte Esterase Rfl Negative (Negative) GISELA/UL Urine RBC 3-5 H (0-2) /hpf Urine WBC 0-5 (0-3) /hpf Ur Squamous Epith Cells None seen (Few) /hpf Urine Bacteria None seen /hpf Urine Casts 0-2 Discharge Plan Discharge Clinical Impression: Dyspnea, End-stage renal disease (ESRD) Patient Disposition: Home Condition: Stable Instructions: Antibiotic Form, Dyspnea (ED) Additional Instructions: You were seen in the emergency department for dyspnea. Your workup showed that you may have slight fluid overload. Please follow-up with dialysis tomorrow and discuss your fluid status. If you develop any new symptoms fevers chills presenting diarrhea please return to the ED for re-evaluation. Patient Language: Venezuelan Prescriptions: No Action amlodipine 10 mg tablet 10 mg PO DAILY Qty: 90 1RF doxazosin [Cardura] 2 mg tablet 2 mg PO QHS Qty: 30 1RF losartan 100 mg tablet 100 mg PO DAILY Qty: 30 1RF lactulose 10 gram/15 mL solution 15 ml PO QHS PRN (Reason: constipation) insulin degludec 100 unit/mL (3 mL) insulin pen 10 unit subcut DAILY Qty: 15 1RF Eliquis 5 mg tablet 5 mg PO BID Qty: 60 5RF pregabalin [Lyrica] 75 mg capsule 75 mg PO BID Qty: 90 1RF sevelamer HCl 800 mg tablet 1,600 mg PO TID Rx Instructions: must administer with a meal/food dextrose [Glutose-15] 40 % Gel 15 g PO PRN PRN (Reason: Hypoglycemia) Qty: 112 0RF labetalol 100 mg Tablet 400 mg PO Q12HR Qty: 240 0RF (DME) pen needle, diabetic [Easy Comfort Pen [place]] 32 gauge x 5/32 needle See Rx Instructions .Route Qty: 50 3RF Rx Instructions: Inject insulin once daily As directed (DME) FreeStyle Alexandro 3 Plus Sensor Device See Rx Instructions .Route Qty: 2 3RF Rx Instructions: Check glucose continuously every 15 days As directed acetaminophen 500 mg tablet 1,000 mg PO TID PRN (Reason: tessie) Qty: 180 1RF Follow-up/Referrals: Sulema Lennon APRN [Primary Care Provider, Internal Medicine]
--- NOTE | 2024-12-14 11:04 | ECG_ITS ---
Test Date: 2024-12-14 12:01:56 Measurements Intervals [place] Rate: 75 P: 54 MI: 146 QRS: -4 QRSD: 78 T: 76 QT: 411 QTc: 459 Interpretive Statements SINUS RHYTHM CONSIDER ANTEROSEPTAL INFARCT, AGE INDETERMINATE BORDERLINE ST-T WAVE ABNORMALITY- HIGH LATERAL LEADS ABNORMAL ECG Compared to ECG 12/14/2024 08:54:39 No significant changes Electronically Signed On 12-14-2024 12:47:43 CDT by Tomasz Scott D.O.
--- NOTE | 2024-12-14 11:29 | PC.NURSE ---
pt requesting oxygen for comfort. placed pt on 2L NC for comfort.
[2024-12-14] MEDS: HYDROmorphone HCL INJ (*CRX) 1 MG/ML SYR 0.5 MG IV PUSH (11:54)
[2024-12-14 12:03] LABS: Troponin I < 0.012 ng/mL (0.000-0.034)
--- NOTE | 2024-12-14 14:11 | ECG_ITS ---
Test Date: 2024-12-14 14:50:23 Measurements Intervals [place] Rate: 70 P: 49 WI: 146 QRS: -9 QRSD: 78 T: 71 QT: 418 QTc: 453 Interpretive Statements SINUS RHYTHM ANTEROSEPTAL INFARCT, AGE INDETERMINATE BORDERLINE ST-T WAVE ABNORMALITY- HIGH LATERAL LEADS ABNORMAL ECG Compared to ECG 12/14/2024 12:01:56 No significant changes Electronically Signed On 12-14-2024 15:03:40 CDT by Tomasz Scott D.O.
[2024-12-14 15:23] LABS: Troponin I < 0.012 ng/mL (0.000-0.034)
== END 2024-12-14 16:27 | disposition home or self-care (01) ==
PROVIDERS: Emergency Provider Emergency Medicine; PCP Nurse Practitioner Family
DX: R06.00 Dyspnea, unspecified (principal); E11.22 Type 2 diabetes mellitus with diabetic chronic kidney disease; I12.0 Hypertensive chronic kidney disease with stage 5 chronic kidney disease or end stage renal disease; N18.6 End stage renal disease; Z99.2 Dependence on renal dialysis; D63.1 Anemia in chronic kidney disease; E11.42 Type 2 diabetes mellitus with diabetic polyneuropathy; M19.031 Primary osteoarthritis, right wrist; M17.12 Unilateral primary osteoarthritis, left knee; K58.9 Irritable bowel syndrome, unspecified; Z87.01 Personal history of pneumonia (recurrent); Z90.49 Acquired absence of other specified parts of digestive tract; Z90.79 Acquired absence of other genital organ(s); Z77.22 Contact with and (suspected) exposure to environmental tobacco smoke (acute) (chronic); Z79.899 Other long term (current) drug therapy; Z79.01 Long term (current) use of anticoagulants; R94.31 Abnormal electrocardiogram [ECG] [EKG]
CPT/HCPCS: 36415; 71046; 71250; 80053; 81001; 83690; 84484; 85025; 85610; 85730; 93005; 96374; 96375; 99284; J0360; J1171; J1938

== ENCOUNTER 2025-01-11 21:24 | Emergency (ER) | payer MEDICARE, MEDICAID, SELFPAY ==
[2025-01-11 21:33] VITALS: BP 223/95; PULSE 69; RESP 19; TEMP 36.6; O2SAT 100
--- NOTE | 2025-01-11 21:36 | ED_ITS ---
HPI - General Adult General Chief complaint: Unspecified Stated complaint: Peritoneal dialysis catheter weeping Source: patient and EMS Mode of arrival: EMS Limitations: no limitations History of Present Illness HPI narrative: This is a 44-year-old female with history of ESRD due to diabetes and hypertension who presents to the ED for PD catheter problem. Patient states that she had a new PD catheter placed today in [place] and she was told to be seen if she noticed any bleeding from the area. She noticed some blood tinged fluid that soaked the gauze prompting her to come to the ED for further evaluation. She has hemodialysis tomorrow scheduled. She has not taken her evening antihypertensives. Denies any pain at this time. Related Data Home Medications ?Medication ?Instructions ?Recorded ?Confirmed ?Last Taken ?Type lactulose 10 gram/15 mL oral 15 ml PO QHS PRN constipa tion 11/02/24 11/30/24 11/29/24 History solution sevelamer HCl 800 mg tablet 1,600 mg PO TID 11/02/24 1 11/29/24 History Allergies Allergy/AdvReac Type Severity Reaction Status Date / Time metronidazole Allergy Intermediate Rash Verified 12/12/24 07:54 omeprazole Allergy Intermediate Rash Verified 12/12/24 07:54 adhesive tape Allergy Mild Itching Verified 12/12/24 07:54 ibuprofen Allergy Unknown Verified 12/12/24 07:54 Review of Systems Review of Systems: Gen.: Denies fevers or chills Eyes: Denies eye pain or visual change ENT: Denies congestion Respiratory: Denies shortness of breath or cough CV: Denies chest pain or palpitations GI: Denies abdominal pain nausea, emesis or diarrhea denies burning, urgency, frequency or hematuria Musculoskeletal: Denies back pain or muscle pain Neuro: Denies numbness, tingling, weakness or focal weakness Skin: Denies rash Except as documented, all other systems reviewed and negative [facility] Past Medical History Medical History Insulin dependent type 2 diabetes mellitus End-stage renal disease on peritoneal dialysis Obesity (BMI 30-39.9) Erythropoietin deficiency anemia Gastroesophageal reflux Arthritis Right wrist left knee Irritable bowel syndrome Diverticulitis Pneumonia Peripheral neuropathy Hypertension Surgical History Surgical History History of section x3 History of dilation and curettage History of appendectomy History of cholecystectomy History of salpingo-oophorectomy History of tubal ligation Family History Family History Mother Diabetes mellitus Breast cancer Sibling History of blood clots due to blood clot Heart disease Sister has something wrong with her heart Father Prostate carcinoma Hypertension Daughter , 06/08/2021, 19yo Pulmonary embolism due to PE Social History Social History Social History: Surrogate medical decision maker: Robert Smith, daughter. Code status: Full code. Smoking status: Never smoker Second hand tobacco smoke exposure: Yes Alcohol intake: never Substance use: current Substance use type: marijuana Do You Feel Safe in your Home?: Yes Lack of Transportation: No Lack of Food: Often True Current Housing: I Have Housing Concerned About Future Housing: No Difficulty Paying Gas/Electric Bills: No Difficulty Paying for Meds: No Currently Unemployed: No Education: Grade School Difficulty w/ Childcare or Family Care: No Living arrangements: with family Additional living arrangements comments: Lives with family in [place]. 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 Spiritual care concerns: No Agree to blood products: Yes Exam Narrative: APPEARANCE: No acute distress, nontoxic, resting in bed EYES: EOMI HEENT: Normocephalic, atraumatic, OMM RESPIRATORY: No respiratory distress Clear to auscultation bilaterally with no rhonchi wheezing or rales. CARDIOVASCULAR: Regular rate and rhythm without murmurs rubs or gallops. ABDOMINAL: Soft, nontender, nondistended, no rebound or guarding. PD catheter in the left lower quadrant with pink tinged dressing. This was removed and showed no active bleeding MUSCULOSKELETAl: Moves all extremities. No clubbing, cyanosis or edema. NEURO: Awake and alert. Following commands, speech normal, no focal deficits SKIN:: Warm, dry. No rashes lesions or abrasions PSYCHIATRIC: Normal affect/mood, Course Vital Signs Vital signs: Vital Signs Temperature 97.9 F 01/11/25 21:33 Pulse Rate 69 01/11/25 21:33 Respiratory Rate 19 01/11/25 21:33 Blood Pressure 223/95 H 01/11/25 21:33 Pulse Oximetry 100 01/11/25 21:33 Oxygen Delivery Room Air 01/11/25 21:33 Temperature 97.9 F 01/11/25 21:33 Pulse Rate 76 01/11/25 21:44 Respiratory Rate 01/11/25 21:33 Blood Pressure 223/95 H 01/11/25 21:33 Pulse Oximetry 100 01/11/25 21:33 Oxygen Delivery Room Air 01/11/25 21:33 Medical Decision Making MDM Narrative Medical decision making narrative: 44-year-old female Presenting for PD catheter problem. On initial evaluation patient was in no acute distress afebrile, hemodynamic stable. Differentials include but are not limited to: Postop bleeding, ascitic fluid leakage Notable exam findings: [place]rowbone tinged dressing over the left lower quadrant PD catheter, dressing was removed and there was no evidence of active bleeding. PD catheter was redressed. Patient was hypertensive but had not received her evening medications yet so she was given these. She did have improvement of her blood pressures to 190s/90s despite the last nursing documentation. Patient had no symptoms concerning for hypertensive emergency including chest pain shortness of breath, abdominal pain headache, changes in vision. Patient was deemed appropriate for discharge at this time. Patient was advised to go to dialysis in the morning. Patient was agreeable to this plan. Given strict return precautions. Vital Signs Vital Signs: Vital Signs Temperature 97.9 F 01/11/25 21:33 Pulse Rate 69 01/11/25 21:33 Respiratory Rate 01/11/25 21:33 Blood Pressure 223/95 H 01/11/25 21:33 Pulse Oximetry 100 01/11/25 21:33 Oxygen Delivery Room Air 01/11/25 21:33 Temperature 97.9 F 01/11/25 21:33 Pulse Rate 76 01/11/25 21:44 Respiratory Rate 01/11/25 21:33 Blood Pressure 223/95 H 01/11/25 21:33 Pulse Oximetry 100 01/11/25 21:33 Oxygen Delivery Room Air 01/11/25 21:33 Discharge Plan Discharge Clinical Impression: Post-op bleeding, ESRD (end stage renal disease) on dialysis Hypertension Qualifiers: Hypertension type: unspecified Qualified Code(s): I10 - Essential (primary) hypertension Patient Disposition: Home Condition: Stable Instructions: Antibiotic Form Additional Instructions: Keep the PD catheter site dry. Go to dialysis tomorrow. Follow-up with your surgeon as scheduled. Continue to take your blood pressure medication as prescribed. Return to the ED for any new or worsening symptoms. Patient Language: Jamaican Prescriptions: No Action lactulose 10 gram/15 mL solution 15 ml PO QHS PRN (Reason: constipation) insulin degludec 100 unit/mL (3 mL) insulin pen 10 unit subcut DAILY Qty: 15 1RF Eliquis 5 mg tablet 5 mg PO BID Qty: 60 5RF sevelamer HCl 800 mg tablet 1,600 mg PO TID Rx Instructions: must administer with a meal/food dextrose [Glutose-15] 40 % Gel 15 g PO PRN PRN (Reason: Hypoglycemia) Qty: 112 0RF labetalol 100 mg Tablet 400 mg PO Q12HR Qty: 240 0RF (DME) pen needle, diabetic [Easy Comfort Pen [place]] 32 gauge x 5/32 needle See Rx Instructions .Route Qty: 50 3RF Rx Instructions: Inject insulin once daily As directed (DME) FreeStyle Alexandro 3 Plus Sensor Device See Rx Instructions .Route Qty: 2 3RF Rx Instructions: Check glucose continuously every 15 days As directed acetaminophen 500 mg tablet 1,000 mg PO TID PRN (Reason: tessie) Qty: 180 1RF pregabalin [Lyrica] 75 mg capsule 75 mg PO DAILY Qty: 90 1RF amlodipine 10 mg tablet 10 mg PO DAILY Qty: 90 1RF doxazosin [Cardura] 2 mg tablet 2 mg PO QHS Qty: 90 1RF losartan 100 mg tablet 100 mg PO DAILY Qty: 90 1RF Follow-up/Referrals: Sulema Lennon APRN [Primary Care Provider, Internal Medicine]
[2025-01-11 21:44] VITALS: PULSE 76
[2025-01-11] MEDS: LOSARTAN POTASSIUM 100 MG TABLET PO (21:44)
[2025-01-11] MEDS: LABETALOL HCL 100 MG TABLET 400 MG PO (21:44)
[2025-01-11] MEDS: HYDROcodone/acetaminophen (*CRX) 5-325 MG TABLET 1 TAB PO (22:30)
--- OUTSIDE RECORDS SUMMARY | 2025-01-12 01:57 | XMS_ITS | Clinical Summary ---
Author Organization [facility] Address [address] [place] [phone] Phone Care Team Providers Care Dowel Inserting Machine Operator Name Role Phone Jessie Dickson MD Primary Care Provider [phone] Allergies Active Allergy Reactions Criticality Noted Date [...] times daily. 9 Active ergocalciferol (VITAMIN D2) 59227 units capsule TK 1 C PO Q [...] the skin Active Blood Glucose Monitoring Suppl (Virgance Verio Flex System) w/Device kit USE DIRECTED [...] Insurance MEDICAID - [place] MEDICARE Care Teams Dowel Inserting Machine Operator Relationship Specialty Start Date End Date Jessie Dickson MD [facility] [address] PCP - General 05/31/18
--- OUTSIDE RECORDS SUMMARY | 2025-01-12 01:58 | XMS_ITS | Clinical Summary ---
Author Organization [facility] Address [address] [place] [address] Care Team Providers Care Machine Molder Squeeze Name Role Phone Jessie Dickson APPLIED BEHAVIOR SPECIALIST-PHP LAMP DEVELOPER Primary Care Pro vider Source Comments [facility],non-owned Affiliates and Associated Physician Practices is amultiple site organization consisting of ambulatory clinics and hospital sitesin [place], [place], [place] and [place]. This disclosure is being madepursuant to the Care Everywhere program and may not contain all information available regarding this patient. Last updated 17.[facility] Allergies Active Allergy Reactions Criticality Noted Date [...] Each 11 06/10/19 19 Active ergocalciferol (DRISDOL) 56659 units capsule Take 1 capsule by mouth [...] 2 tablet 01/22/20 22 Active HYDROcodone-acetami nophen ([place]) 5-325 MG tablet Take 1 (one) tablet [...] on file Legal Sex Female 5:16 PM ECHO VASCULAR TECHNOLOGIST Gender Identity Not on file Sexual Orientation Not on file Last Filed Vital Signs Vital Sign Reading Time Taken Comments Blood Pressure 145/85 02/05/2022 12:[address] irizarry aware; ok to d/cv Pulse 74 02/05/2022 11:55 AM ECHO VASCULAR TECHNOLOGIST Temperature 36.8 C (98.2 F) 09/13/2019 8:22 AM CDT Respiratory Rate 12 02/05/2022 11:5 0 AM ECHO VASCULAR TECHNOLOGIST Oxygen Saturation 100% 02/05/2022 11: 55 AM ECHO VASCULAR TECHNOLOGIST Inhaled Oxygen Concentration - - Weight 108.9 [...] 3 - Risk Dialysis 4-dose series) 1998 Cervical Cancer Screening 1999 PAP SMEAR 1999 PAP with HPV 2008 DIABETES-FOOT EXAM WITH MONOFILAMENT 11/10/2018 11/10/2017, 11/10/2017 DIABETES-HGB A1C 01/31/2019 11/01/2018, 04/2018, 05/24/2018, Additional history exists DIABETES RETINOPATHY SCREENING 09/22/2019 09/21/2018, 05/24/2018, 06/24/2017, Additional history exists DEPRESSION SCREENING 02/24/2024 COVID-19 VACCINE ( - season) 2024 INFLUENZA VACCINE (#1) 2024 02/03/2023, 2021 ZOSTER VACCINE (1 of 2) 2028 COLON [...] Unknown 11/01/2018 10:11 AM CDT Tessie Pritchard APRN-PHP LAMP DEVELOPER LAB - POINT OF CARE O RDERABLES Final Result * HEPATITIS C AB SCREEN RFLX NAAT QUANT (05/28/2018 12:13 PM CDT) Hepatitis C Antibody Non-react javier Non-reac tive 05/28/2018 1:18 PM CDT [facility] Comment: Hepatitis C Antibody screen indicates [...] MD LAB - CHEMISTRY ORDERABLES Final Result [facility] [address] [phone] * HIV-1 HIV-2 ANTIGEN/ANTIBODY (05/24/2018 5:08 PM CDT) HIV Antigen/Antibod y 1 & 2 Non-reacti ve Non-react javier 05/24/2018 5:54 PM CDT [facility] Comment: Neither HIV-1 p24 Antigen nor HIV-1/HIV-2 Antibodies are detected. Blood BLOOD SPECIMEN / Unknown Venipuncture / Unknown 05/24/2018 5:08 PM CDT 05/24/2018 5:16 PM CDT Namita Raymond MD LAB - HEMATOLOGY ORDERABLES Fi nal Result [id number] [place] [address], [facility] [phone] from Last 3 Months or Most Recently Relevant to Health Maintenance Insurance MEDICARE MEDICAID - [place] [facility] MEDICAID SPENDDOWN - [place] MEDICAID - OUT OF STATE Advance Directives * Full Code (Latest Code Status on File) Date Activated Date Inactivated Comments 05/25/2018 12:57 AM 05/28/2018 5:22 PM * Full Code Date Activated Date Inactivated Comments 05/24/2018 6:24 PM 05/25/2018 12:57 AM Care Teams Machine Molder Squeeze Relationship Specialty Start Date End Date Jessie Dickson APRN-CNP [address] [place] [address] [phone] PCP - General 06/30/14
--- OUTSIDE RECORDS SUMMARY | 2025-01-12 01:58 | XMS_ITS ---
Author Organization [facility] Address [address] [place] [address] Care Team Providers Care Lawn Sprinkler Servicer Name Role Phone Almita Rizzo RN Unavailable [phone] Beth Fernandez MD Unavailable [phone] Maday Oviedo MD Unavailable [phone] Tomasz Scott DO Unavailable [phone] Meir Nazario MD Unavailable [phone] Sulema Lennon NP Primary Care Provider [phone] Dialysis Access Sites Type Status Location Placement Date Removal Da te AV graft Active Left Upper Arm - Anterior 05/08/2022 Peritoneal Dialysis Catheter Other (Comment) Right lower abdomen Active Right Abdomen (side) - Lower 03/14/2021 Procedures Procedure Name Priority Date/Time Associated Diagnosis Comments MYELOPEROXIDASE ANTIBODY Routine 12/23/2024 10:05 AM CDT On hydralazine therapy PROTEINASE-3 ANTIBODY Routine 12/23/2024 10:05 AM CDT On hydralazine therapy BETA 2 GLYCOPROTEIN ANTIBODY, IGG, IGM Routine 12/23/2024 10:05 AM CDT History of DVT (deep vein thrombosis) ANTI-NEUTROPHILIC CYTOPLASMIC ANTIBODY (ANCA) WITH REFLEX TO MPO AND PR3 ABS Routine 12/23/2024 10:05 AM CDT On hydralazine therapy ANTIHISTONE ANTIBODIES Routine 10:05 AM CDT On hydralazine therapy URIC ACID Routine 12/23/2024 10:05 AM CDT Right hand pain XR KNEE BILATERAL AP STANDING Routine 12/23/2024 9:32 AM CDT Polyarthralgia HLA ANTIBODY SCREEN - SAB (CLASS I AND CLASS II) Routine 12/15/2024 10:00 AM CDT Pre-kidney transplant, patient on transplant list ESRD (end stage renal disease) HLA ANTIBODY SCREEN BY PRA OR SAB PER SCHEDULE (CLASS I AND CLASS II) Routine 12/15/2024 10:00 AM CDT Pre-kidney transplant, patient on transplant list ESRD (end stage renal disease) HLA VIRTUAL CROSSMATCH RECIPIENT REPORT 10/19/2024 1:10 PM CDT EGFR STAT 10/06/2024 2:27 PM CDT HEMOGLOBIN A1C Routine 09/14/2024 5:21 AM CDT LIPID PANEL STAT 06/21/2024 7:20 PM CDT HEPATITIS C ANTIBODY Routine 02/16/2024 11:34 AM RECREATIONAL COUNSELOR Pre-kidney transplant, patient on transplant list ESRD (end stage renal disease) (HCC) COLONOSCOPY 07/21/2023 10:23 AM CDT HM MAMMOGRAPHY Routine 06/04/2021 from Last 3 Months or Most Recently Relevant to Health Maintenance Allergies Active Allergy Reactions Criticality Noted Date Comments Ibuprofen Stomach upset Low 04/20/2017 Metronidazole Itching,Rash,Hives Medium 04/21/2017 Omeprazole Rash Medium 04/21/2017 Medications aspirin 81 mg enteric coated tablet Take 1 tablet (81 mg total) by mouth every morning Picking up all new prescriptions today-she will pick this up later today 05/06. Active lactulose solution 10 gram/15mL daily as needed (CONSTIPATION) Active atorvastatin (LIPITOR) 80 mg tablet Take 1 tablet (80 mg total) by mouth daily Active calcium acetate,phosphat bind, (PHOSLO) 667 mg capsule TAKE 2 CAPSULES BY MOUTH WITH EACH MEAL Active gabapentin (NEURONTIN) 100 mg capsule Take 2 capsules (200 mg total) by mouth 3 (three) times a day 90 capsule Active rOPINIRole (REQUIP) 0.5 mg tablet Take 1 tablet (0.5 mg total) by mouth 3 (three) times a day as needed (restless legs) for up to 30 doses 30 tablet Active Additional Information Patient not taking.Reported on 12/23/2024 albuterol HFA (PROVENTIL HFA,VENTOLIN HFA,PROAIR HFA) 90 mcg/actuation inhaler Inhale 2 puffs every 4 (four) hours as needed for wheezing 6.7 g Active benzonatate (TESSALON) 100 mg capsule Take 1 capsule (100 mg total) by mouth 3 (three) times a day as needed for cough 15 capsule 024 Active lidocaine (LIDODERM) 5 % Place 1 patch on the skin daily Remove & discard patch within 12 hours or as directed by MD. 5 patch Active ondansetron ODT (ZOFRAN-ODT) 4 mg disintegrating tablet Take 1 tablet (4 mg total) by mouth every 8 (eight) hours as needed for nausea or vomiting 20 tablet Active polyethylene glycol (MIRALAX) 17 gram/dose bulk powder Take 17 g by mouth daily 510 g 025 Active amLODIPine (NORVASC) 10 mg tablet Take 1 tablet (10 mg total) by mouth daily 30 tablet Active ketorolac (ACULAR) 0.5 % ophthalmic solution Administer 1 drop into both eyes 4 (four) times a day 3 mL Active prednisoLONE acetate (PRED FORTE) 1 % ophthalmic suspension Administer 1 drop into both eyes 4 (four) times a day Active labetaloL (NORMODYNE,TRANDATE) 300 mg tablet Take 1 tablet (300 mg total) by mouth 2 (two) times a day 60 tablet 2025 Active losartan (COZAAR) 100 mg tablet Take 1 tablet (100 mg total) by mouth daily 30 tablet 2025 Active acetaminophen (TYLENOL) 325 mg tabletIndications:Fe ida,Pain Take 2 tablets (650 mg total) by mouth every 6 (six) hours as needed for pain 30 tablet Active doxazosin (CARDURA) 2 mg tablet Take 1 tablet (2 mg total) by mouth nightly 30 tablet 2025 Active sevelamer (RENVELA) 800 mg tabletIndications:Re nal Osteodystrophy with Hyperphosphatemia Take 1 tablet (800 mg total) by mouth 3 (three) times a day with meals 90 tablet 2025 Active HYDROcodone-acetamin ophen (NORCO) 5-325 mg per tabletIndications:Pa in Take 1 tablet by mouth every 6 (six) hours as needed for pain 10 tablet Active apixaban (ELIQUIS) 5 mg tablet Take 1 tablet (5 mg total) by mouth Active Eliquis 5 mg tablet TAKE 1 TABLET BY MOUTH 2 TIMES DAILY FOR BLOOD CLOT IN A DEEP VEIN Active cefdinir (OMNICEF) 300 mg capsule Active cefpodoxime (VANTIN) 200 mg tablet TAKE 1 TABLET BY MOUTH EVERY DAY MUST ADMINISTER WITH A MEAL/FOOD Active cholecalciferol (VITAMIN D-3) 5,000 unit tablet Take 1 tablet (5,000 Units total) by mouth daily Active insulin degludec (TRESIBA) 100 unit/mL (3 mL) pen for injection Inject 0.1 mL (10 Units total) under the skin Active megestroL (MEGACE) 40 mg tablet Take 1 tablet (40 mg total) by mouth daily Active methocarbamoL (ROBAXIN) 750 mg tablet take 2 tablets (1500 mg) by mouth three times a day Active oxyCODONE (ROXICODONE) 5 mg immediate release tablet 5 MG ORALLY EVERY 4 HOURS NEEDED FOR PAIN RATED 7-10 FOR 5 DAYS 025 Active pregabalin (LYRICA) 75 mg capsule Take 1 capsule (75 mg total) by mouth 025 Active triamcinolone (KENALOG) 0.1 % cream APPLY THIN COAT TO AFFECTED AREA TWICE A DAY Active insulin glargine (LANTUS) 100 unit/mL vial for injection Inject 10 Units under the skin nightly 2024 Disconti nued(Pat ient Reported ) Active Problems Problem Noted Date Diagnosed Date Hypertensive urgency 09/13/2024 Encounter for peritoneal dialysis 06/21/2024 Screening for colorectal cancer 07/08/2023 Pre-transplant evaluation for kidney transplant 07/08/2023 Pain of left upper extremity 06/24/2023 Encounter for surgical after care following surgery of circulatory system 07/04/2022 Ovarian mass 04/10/2022 Overview (04/10/2022): Added automatically from request for surgery [id number] Hypertension 2021 ESRD (end stage renal disease) on dialysis 03/05 Diabetic retinopathy associa graeme with type 2 diabetes mellitus 06/12/2015 Hyperlipidemia 06/29/2014 Type 2 diabetes mellitus 09/17/2012 Immunizations Immunization Administration Dates Next Due DTP 06/18/1984, 1,05/23/1980,11/18 Hep B Vaccine 2023,10/06/2022,04/18/2021 Influenza, Mdck, Trivalent, Contains Preservative (MDV) 11/27/2023 Influenza, Quadrivalent, Spl it, Intramuscular 02/03/2023,12/27/2021 Influenza, Unspecified 02/03/2023,12/27/2021 MMR 06/18/1984 OPV 06/18/1984, 1,05/23/1980,11/18 PPD TEST 11/03/2024, 5,05/25/2023,07/30 Pneumococcal Conjugate 7-Valent 03/03/2018 Pneumococcal Conjugate PCV 13 04/18/2021 Pneumococcal Conjugate Pcv20 2023 Pneumococcal Polysaccharide PPV23 07/09/2017 Pneumococcal, Unspecified 04/18/2021 Tdap 07/09/2017 Social History Tobacco Use Types Packs/Day Years Used Date Smoking Tobacco: Never Passive Smoke Exposure: Past Smokeless Tobacco: Never Tobacco Cessation:Counseling Given: Not Answered [facility] Utilities Answer Date Recorded In [...] any clubs o r organizations such as scientologist groups, unions, fraternal or athletic groups, or [...] time in the past 12 m [facility], were you homeless or living in a snf (including now)? No 09/14/2024 Personal Safety Answer Date Recorded Have you ever been in or are you currently in a harmful physical or emotional relationship or is someone making you feel afraid or unsafe? Denies 10/06/2024 Comments No Sex and Gender Information Value Date Recorded Sex Assigned at Not on file Legal Sex Female 11:50 PM RECREATIONAL COUNSELOR Gender Identity Not on file Sexual Orientation Not on file Last Filed Vital Signs Vital Sign Reading Time Taken Comments Blood Pressure 185/76 12/23/2024 7:43 AM CDT Pulse 77 12/23/2024 7:43 AM CDT Temperature 36.7 C (98.1 F) 12/23/2024 7:43 AM CDT Respiratory Rate 14 10/06/2024 8:48 PM CDT Oxygen Saturation 100% 10/06/2024 8:48 PM CDT Inhaled Oxygen Concentration - - Weight 85.3 kg (188 lb) 12/23/2024 7:43 AM CDT Height 160 cm (5' 3) 12/23/2024 7:43 AM CDT Body Mass Index 33.3 12/23/2024 7:43 AM CDT Results * Beta 2 glycoprotein antibody, IgG, IgM (12/23/2024 10:05 AM CDT) Beta-2 glycoprotein I, IgG <1.4 <=19.9 units/mL Comment: Interpretive Data Negative: <20 U/mL Positive: > or = 20 U/mL Beta-2 glycoprotein 1 (Beta-2 GP1) antibodies are a more specific marker of thrombotic risk. It is expected that some samples will be ACL positive and Beta- 2 [id number]. In order to improve specificity, the International Congress on Antiphospholipid Antibodies recommends Beta-2 GP1 antibodies of IgG or IgM isotype (> the 99th percentile), obtained twice, at least 12 weeks apart, to support a diagnosis of antiphospholipid syndrome. The cutoff for this assay was developed from data based on the 99th percentile. These results were obtained with the iAmplify BioPlex 2200 System. Beta 2GP1 IgG values obtained with different manufacturers' assay methods may not be used interchangeably. Current interpretive data was last revised on 2016. Beta-2 glycoprotein I, IgM 1.9 <=19.9 units/mL DENNIS LEDESMA Comment: Interpretive Data Negative: <20 U/mL Positive: > or = 20 U/mL Beta- 2 glycoprotein 1 (Beta-2 GP1) antibodies are a more specific marker of thrombotic risk. It is expected that some samples will be ACL positive and Beta- 2 GP1 negative. In order to improve specificity, the International Congress on Antiphospholipid Antibodies recommends Beta-2 GP1 antibodies of IgG or IgM isotype (> the 99th percentile), obtained twice, at least 12 weeks apart, to support a diagnosis of antiphospholipid syndrome. The cutoff for this assay was developed from data based on the 99th percentile. The Beta-2 GP1 IgM test can produce false positive results due to cross-reactivity with Rheumatoid factor. These results were obtained with the iAmplify BioPlex 2200 System. Beta-2 GP1 IgM values obtained with different manufacturers' assay methods may not be used interchangeably. Current interpretive data was last revised on 2016. Blood 12/23/2024 10:0 5 AM CDT 12/23/2024 10:32 AM CDT Fannie Fountain NP LAB BLOOD ORDERABLES Final Result DENNIS [facility]OL[facility] Department [place] [address] * PR3 - proteinase 3, Ab (12/23/2024 10:05 AM CDT) Proteinase 3 ab <0.2 <=0.9 Ab Index Comment: Interpretive Data Negative: <1 Ab Index Positive: > or = 1 Ab Index Current interpretive data was last revised on 2016. Blood 12/23/2024 10:0 5 AM CDT 12/23/2024 10:32 AM CDT Fannie Fountain UNION CONTRACT REPRESENTATIVE LAB BLOOD ORDERABLES Final Result Performing Organization Address [facility] de Phone Number [facility] [place] [address] * MPO - myeloperoxidase antibody (12/23/2024 10:05 AM CDT) Myeloperoxidase ab <0.2 <=0.9 Ab Index Comment: Interpretive Data Negative: <1 Ab Index Positive: > or = 1 Ab Index Current interpretive data was last revised on 2016. Blood 12/23/2024 10:0 5 AM CDT 12/23/2024 10:32 AM CDT Fannie Fountain NP LAB BLOOD ORDERABLES Final Result Performing Organization Address [facility] de Phone Number [facility] Department [place] [address] * (ABNORMAL) Anti-Neutrophilic Cytoplasmic Antibody (ANCA) with Reflex to MPO and PR3 Abs (0:05 AM CDT) ANCA Positive( A) Negative ANCA Titer 1:1280 titer [facility] ANCA Pattern P-ANCA [facility] Comment:IFA Testing is sugge stive of P-ANCA. Results by antigen specific Immunoassay (MPO & PR3) to follow. Blood 12/23/2024 10:0 5 AM CDT 12/23/2024 10:32 AM CDT Fannie Fountain UNION CONTRACT REPRESENTATIVE LAB BLOOD ORDERABLES Final Result Performing Organization Address [facility]/ZIP Co de Phone Number [facility] [place] [address] * Antihistone antibodies (12/23/2024 10:05 AM CDT) Pathologist [facility] Antihistone <1.0 U Comment: Value Explanation of Results ------ <1.0 Negative 1.0-1.5 Weak Positive 1.6-2.5 Moderate Positive >2.5 Strong Positive Test Performed at: [facility] [address] [place] [address] IMAN CASTAÑEDA Blood 12/23/2024 10:0 5 AM CDT 12/23/2024 10:32 AM CDT Fannie Fountain UNION CONTRACT REPRESENTATIVE LAB BLOOD ORDERABLES Final Result Performing Organization Address [facility] Co de Phone Number [facility] [place] [address] * Uric acid (12/23/2024 10:05 AM CDT) Pathologist [facility] Uric acid 4.2 2.5 - 7.0 mg/dL Blood 12/23/2024 10:0 5 AM CDT 12/23/2024 10:32 AM CDT Fannie Fountain UNION CONTRACT REPRESENTATIVE LAB BLOOD ORDERABLES Final Result Performing Organization Address [facility] Co de Phone Number [facility] [place] [address] * XR Knee Bilateral Ap Standing (12/23/2024 9:32 AM CDT) Anatomical Region Laterality Modality Lower Extremities, Knee Bilateral Computed Radiography 12/23/2024 9:36 AM CDT Impressions 12/23/2024 9:36 AM CDT Mild medial compartment predominant osteoarthritis of both knees. Electronically signed by: Ric Watts M.D. Narrative 12/23/2024 9:36 AM CDT EXAMINATION: XR KNEE BILATERAL AP STANDING HISTORY: Knee pain FINDINGS: Bilateral AP standing view of the knees was performed with comparison made to 10/06/2024. There is mild medial compartment osteoarthritis of both knees. There is no displaced fracture. Atherosclerotic vascular calcifications are noted. Procedure Note Ric Watts MD PhD - 12/23/2024 EXAMINATION: XR KNEE BILATERAL AP STANDING HISTORY: Knee pain FINDINGS: Bilateral AP standing view of the knees was performed with comparison made to 10/06/2024. There is mild medial compartment osteoarthritis of both knees. There is no displaced fracture. Atherosclerotic vascular calcifications are noted. IMPRESSION: Mild medial compartment predominant osteoarthritis of both knees. Electronically signed by: Ric Watts M.D. us Fannie Fountain UNION CONTRACT REPRESENTATIVE IMG XR PROCEDURES Fin al Result * HLA Antibody Screen by PRA or SAB per Schedule (Class I and Class II) (12/15/2024 10:00 AM CDT) Blood 12/15/2024 10:0 0 AM CDT Narrative HISTOTRAC - RECREATIONAL COUNSELOR Sample received in lab. Single Antigen Antibody Screen ordered. Miriam Garner MD LAB BLOOD ORDERAB LES Final Result [facility] * HLA Antibody Screen - SAB (Class I and Class II) (12/15/2024 10:00 AM CDT) Class I Treatment EDTA HISTOTRAC Class I Dilution 1:1 HISTOTRAC Class I Tested Date 12/20/2024 HISTOTRAC Class I Result Positive HISTOTRAC Class I CPRA 98 HISTOTRAC Class I Increased Risk A11, A43; B7, B8, B18, B27, B35, B39, B41, B42, B45, B46, B48, B50, B54, B55, B56, B60, B61, B62, B64, B65, B67, B71, B72, B73, B75, B76, B78, B81, B82, Bw6; Cw1, Cw7, Cw8, Cw9, Cw10, Cw12, Cw14, Cw16 HISTOTRAC Class I Moderate Risk A25, A66; Cw5 HISTOTRAC Class I Low Risk A26; B27, B77; Cw15, Cw17, Cw18 HISTOTRAC Class I Reportable Comments Bw6 pattern is present. HISTOTRAC Class II Treatment EDTA HISTOTRAC Class II Dilution 1:1 HISTOTRAC Class II Tested Date 12/20/2024 HISTOTRAC Class II Result Positive HISTOTRAC Class II CPRA 63 HISTOTRAC Class II Moderate Risk DR7, DR9, DR12, DR16; DPB1*01:01, DPB1*03:01, DPB1*05:01, DPB1*11:01, DPB1*13:01, DPB1*14:01, DPB1*15:01, DPB1*19:01 HISTOTRAC Class II Low Risk DR4, DR9, DR15, DR16, DR52, DR53; DPB1*03:01, DPB1*04:01, DPB1*06:01, DPB1*09:01, DPB1*10:01, DPB1*13:01, DPB1*17:01, DPB1*20:01, DPB1*23:01 HISTOTRAC Class II Reportable Comments Allelic antibody not listed: DRB3*01:01, DRB3*03:01 (alloantibod y, moderate risk), patient is DRB3*02:02 per [facility]. HISTOTRAC 12/15/2024 10:0 0 AM CDT 12/21/2024 9:12 AM CDT Narrative HISTOTRAC - 12/21/2024 9:12 AM CDT Single-antigen HLA antibody screen is performed on serum samples using a method developed and validated by the [facility] HLA laboratory based on an FDA-approved IVD kit (Periscapecreen Single-Antigen, [employer], [place], [place]). All patient serum samples are pretreated with EDTA before the screen to prevent complement interference. Additional serum treatments, such as adsorption and DTT treatment, may be performed as indicated. Interpretive comments: Low risk: MFI 8396-3602. Moderate risk: MFI 2512-2598. Increased risk: MFI >/= 5000. The presence [...] antigens to avoid. Testing performed at the [facility], [address] [place] [address], 5th floor, [place], [address]. [place] # [id number]. Amber Berry, Ph.D., Roller Coaster Operator, HLA Laboratory Jonathan Brennan M.D., Ph.D., Analytical Strategist, HLA Laboratory Rehana Alarcon, Ph.D., CLIA Analytical Strategist, [facility] Current methodology and interpretive comments last revised on 03/20/2022. us Miriam Garner MD LAB BLOOD ORDERAB LES Final Result HISTOTRAC * HLA Virtual Crossmatch Recipient Report (10/19/2024 1:10 PM CDT) us Sherwin Bhat MD LAB BLOOD ORDERABLES F inal Result * (ABNORMAL) eGFR (10/06/2024 2:27 PM CDT) [...] LAB BLOOD ORDERABLES Final Re sult DENNIS [address] [facility] Department of Laboratories [place], [place] [id number] * (ABNORMAL) Hemoglobin A1c (09/14/2024 5:21 AM CDT) Hgb A1C 6.2(H) 4.0 - 5.6 % Estimated Average Glucose 131 mg/dL DENNIS Comment: The ADA recommends reporting an estimated Average Glucose (eAG) with all Hemoglobin A1c results using the equation derived from a study of 507 normal and diabetic adults. Minority populations were underrepresented and children were not included. (Diabetes Care 31:0903-3321, 2008). The eAG is not equivalent to a fasting glucose. Blood 09/14/2024 5:21 AM CDT 09/14/2024 5:36 AM CDT us Jonnathan Mojica DO LAB BLOOD ORDERABLES Vicki lovelace Result DENNIS [address] [facility] Department [place] [address] * Lipid panel (06/21/2024 7:20 PM CDT) [...] on 2017. Triglycerides 112 <=149 mg/dL DENN[facility] Comment: Interpretive Data Ages < or [...] on 2017. HDL 56 >=40 mg/dL DENNIS [facility] Comment: Interpretive Data Ages < or [...] on 2017. LDL, calculated 62 <=129 mg/dL [facility] Comment: Interpretive Data Ages < or [...] revised on 2023. Non-HDL Cholesterol 82 mg/dL [facility] Comment: Interpretive Data Ages < or [...] last revised on 2017. Chol/HDL ratio 2 [facility] Blood 06/21/2024 7:20 PM CDT 06/21/2024 7:40 PM CDT Narrative [facility] - 06/22/2024 8:42 AM CDT Reflex us Brandan Orr MD LAB BLOOD ORDERABLES Vicki l Result [facility] Department [place] [address] * Hepatitis C antibody Blood (02/16/2024 11:34 AM RECREATIONAL COUNSELOR) Hep C Ab Nonreactive Nonreactive Comment:Antibodies to HCV no t detected. Does NOT exclude the possibility of recent exposure to HCV. Current interpretive data was last revised on 21 Blood 02/16/2024 11:3 4 AM RECREATIONAL COUNSELOR 02/16/2024 11:45 AM RECREATIONAL COUNSELOR us Tonya Hammonds MD LAB MICROBIOLOGY - GENERAL ORDERABLES Final Result DENNIS [facility] Department [place] [address] * Colonoscopy (07/21/2023 10:23 AM CDT) Anatomical Region Laterality Modality Other Narrative Procedure Note Haritha Stover MD - 07/21/2023 10:23 AM CDT [facility] Patient Name: Bakari Smith Procedure Date: 07/21/2023 10:23 AM Date of : 1980 Admit Type: Outpatient Age: 43 Gender: Female Attending MD: Haritha Stover M.D. Room: [facility] ENDOSCOPY ROOM 02 Note Status: Finalized [...] The scope was passed under direct vision.The [id number] Colonoscope was introducedthrough the anus and advanced to the the cecum, identifiedby appendiceal orifice and ileocecal valve. The colonoscopy was performed without difficulty. The patient tolerated the procedure well. The qualityof the bowel preparation was evaluated using the BBPS ([place] Bowel Preparation Scale) with scores of:Right Colon [...] On: 07/21/2023 10:23 AM Recognized by the [employer] for promoting quality in endoscopy us Haritha Stover MD ENDOSCOPY PROCEDURES Final Res ult * HM MAMMOGRAPHY (06/04/2021) Impressions Rashida Schneider - 06/04/2021 IMPRESSION: 1. Benign mammogram. READ BY: NINO BAJWA MD 06/05/2021 Historical Provider HEALTH MAINTENANCE Final Result from Last 3 Months or Most Recently Relevant to Health Maintenance
--- OUTSIDE RECORDS SUMMARY | 2025-01-12 01:58 | XMS_ITS | Encounter Summary ---
Author Organization [facility] Address [address] [facility] [place] [address] Care Team Providers Care Pilling Machine Operator Name Role Phone Jessie Dickson INDEPENDENT VIDEO PRODUCER-CONTROLLER COAL OR ORE Primary Care Pro vider Encounter Details Date Type Department Care Team (Late st Contact Info) Description 05/25/2018 Ophth Exam [facility] [place] [address] Regina Fritz MD [address] [place] [id number] Social History Tobacco Use Types Packs/Day Years Used Date Smoking Tobacco: Never Smokeless Tobacco: Never Alcohol Use Standard Drinks/Week Comments No 0 (1 standard drink = 0.6 oz pur e alcohol) socially. Comments No Sex and Gender Information Value Date Recorded Sex Assigned at Not on file Legal Sex Female 5:16 PM STORES DESPATCH HAND Gender Identity Not on file Sexual Orientation [...] on filedocumented in this encounter Care Teams Pilling Machine Operator Relationship Specialty Start Date End Date Jessie Dickson TAMMY-CONTROLLER COAL OR ORE [address] [place] [id number] PCP - General 06/30/14 documented as of this encounter
--- OUTSIDE RECORDS SUMMARY | 2025-01-12 02:00 | XMS_ITS | Clinical Summary ---
Author Organization [facility] at [facility] Address [address] [place] [address] Care Team Providers Care Browning Processor Name Role Phone Almita Rizzo RN Unavailable [phone] Beth Fernandez MD Unavailable [phone] Maday Oviedo MD Unavailable [phone] Tomasz Scott DO Unavailable [phone] Meir Nazario MD Unavailable [phone] Sulema Lennon NP Primary Care Provider [phone] Allergies Active Allergy Reactions Criticality Noted Date [...] tablet (80 mg total) by mouth daily 023 Active calcium acetate,phosphat bind, (PHOSLO) 667 mg capsule TAKE 2 CAPSULES BY MOUTH WITH EACH MEAL Active gabapentin (NEURONTIN) 100 mg capsule Take 2 capsules (200 mg total) by mouth 3 (three) times a day 90 capsule 024 Active rOPINIRole (REQUIP) 0.5 mg tablet Take [...] day as needed for cough 15 capsule Active lidocaine (LIDODERM) 5 % Place 1 [...] 17 g by mouth daily 510 g Active amLODIPine (NORVASC) 10 mg tablet Take [...] mg total) by mouth nightly 30 tablet 11 025 2025 Active sevelamer (RENVELA) 800 mg tabletIndications:Re nal Osteodystrophy with Hyperphosphatemia Take 1 tablet (800 mg total) by mouth 3 (three) times a day with meals 90 tablet 11 025 2025 Active HYDROcodone-acetamin ophen (NORCO) 5-325 mg [...] tablet (40 mg total) by mouth daily 024 Active methocarbamoL (ROBAXIN) 750 mg tablet take 2 tablets (1500 mg) by mouth three times a day Active oxyCODONE (ROXICODONE) 5 mg immediate release tablet 5 MG ORALLY EVERY 4 HOURS NEEDED FOR PAIN RATED 7-10 FOR 5 DAYS Active pregabalin (LYRICA) 75 mg capsule Take 1 capsule (75 mg total) by mouth Active triamcinolone (KENALOG) 0.1 % cream APPLY [...] (04/10/2022): Added automatically from request for surgery [id number] Hypertension 2021 ESRD (end stage renal disease) [...] Encounters Date Type Department Care Team Description 01/02/2025 Telephone [facility] Transplant Kidney [address] [facility] [address] Mailstop 90-16-730 [place] [address] Hien Mireles 12/30/2024 Telephone [facility] Medicine Ophthalmology [address] [place] [address] Shorty Coates, OD New pt scheduled 12/23/2024 10:25 AM CDT Lab [facility] [address] [place] [phone] Right hand pain; On hydralazine therapy; History of DVT (deep vein thrombosis) 12/23/2024 9:23 AM CDT - 12/23/2024 11:59 PM CDT Hospital Encounter [facility]) [address] [place] [address] Polyarthralgia Discharge Disposition: Discharge to home or self care 12/23/2024 8:00 AM CDT Office Visit [facility] Medicine Rheumatology [address] [facility] Advanced Medicine 5th [place] [address] [place] [address] Fannie Fountain NP History of optic neuritis (Primary Dx); Visual changes; History of DVT (deep vein thrombosis); Right hand pain; Polyarthralgia; On hydralazine therapy 12/19/2024 Telephone [facility] Transplant Kidney [address] [facility] [address] Mailstop [phone] [place] [address] Hien Mireles 12/15/2024 10:00 AM CDT - 12/15/2024 11:59 PM CDT Hospital Encounter [address] [address] Pre-kidney transplant, patient on transplant list; ESRD (end stage renal disease) Discharge Disposition: Discharge to home or self care 11/18/2024 8:00 PM CDT Social Work [facility] Transplant Center [address] [facility] Medicine, 8th Floor, [place] [address] 11/17/2024 Telephone [facility] Transplant Kidney [address] [facility] [address] Mailstop [id number] [place] [address] Hien Mireles 11/16/2024 Documentation [facility] Transplant Kidney [address] [facility] [address] Mailstop [id number] [place] [address] Almita Rizzo RN Waitlist Status Update 11/16/2024 Telephone [facility] Transplant Kidney [address] [facility] [address] Mailstop 90-54-139 [place] [address] Hien Mireles 11/16/2024 Documentation [facility] Transplant Kidney [address] [facility] [address] Mailstop [phone] [place] [address] Almita Rizzo RN Waitlist Maintenance 11/16/2024 Documentation [facility] Transplant Kidney [address] [facility] [address] Mailstop [id number] [place] [address] Almita Rizzo RN Waitlist Maintenance 11/16/2024 Telephone [facility] Transplant Kidney [address] [facility] [address] Mailstop 97-19-305 [place] [address] Almita Rizzo RN Waitlist Maintenance 11/04/2024 Telephone [facility] Transplant Kidney [address] [facility] [address] Mailstop [phone] [place] [address] Almita Rizzo RN Waitlist Maintenance 10/25/2024 E-Consult [facility] [address] [facility] 3rd [place] [address] Jonathan Brennan MD PhD ESRD (end stage renal disease) (Primary Dx); Pre-transplant evaluation for kidney transplant 10/21/2024 Documentation [facility] Transplant Kidney [address] [facility] [address] [place] [address]-[address] [place] [address] Vanda Bruce 10/21/2024 Documentation [facility] Transplant Kidney [address] [facility] [address] [place], [place] [address]op 11-17-[address] [place] [address] Almita Rizzo RN Waitlist Status Update (ON HOLD) 10/21/2024 Telephone [facility] Transplant Kidney [address] [facility] [address] Mailop [phone] [place] [address] Val Umaña, DELFINO After Hours; Transplant Organ Offer 10/20/2024 Orders Only [facility] [address] [place] [address] Sherwin Bhat MD Awaiting organ transplant status 10/20/2024 Orders Only [facility] Transplant Kidney [address] [facility] [address] Mailop [phone] [place] [address] Regina Hernandez RN Awaiting organ transplant status (Primary Dx) 10/20/20[address] [facility] [place] [address] Clayton Robles MD Transfer Notification 10/19/2024 Orders Only [facility] [address] [facility] 12th [place] [address] [place] [address] Sherwin Bhat MD 10/18/2024 Documentation [facility] Transplant Kidney [address] [facility] [address] Mailstop 87-24-597 [place] [address] Almita Rizzo RN Waitlist Maintenance from Last 3 Months Immunizations Immunization Administration Dates Next Due DTP [...] Tobacco: Never Tobacco Cessation:Counseling Given: Not Answered [facility] Utilities Answer Date Recorded In the past 12 months has e [employer], gas, oil, or water [employer] threatened to shut off services in your [...] often do you attend chur ch or latter day services? More than 4 times per year 09/14/2024 Do you belong to any clubs o r organizations such as mandaeism groups, unions, fraternal or athletic groups, or [...] any time in the past [address] [facility], were you homeless or living [...] on file Legal Sex Female 11:50 PM DELI ASSOCIATE Gender Identity Not on file Sexual Orientation [...] Mass Index 33.3 12/23/2024 7:43 AM CDT Plan of Treatment Health Maintenance Due Date Last Done Comments Albumin Creatinine Ratio, Urine 1980 Cervical Cancer Screening 1980 Depression Screening 1980 Foot Exam 1980 Regular Well Visit/Exam 18-64 1996 Zoster Vaccine (1 of 2) 1997 Breast Cancer Screening-Mammogram 03/19/2024 03/19/2023, 03/17/2023, 06/04/2021 Influenza Vaccine (#1) 2024 , 02/03/2023, 02/03/2023, Additional history exists Hemoglobin A1C 03/17/2025 09/14/2024, 04/3 , 06/21/2024, Additional history exists Lipid Panel 06/21/2025 06/21/2024, 03/0 09/2021, 05/22/2018 Dilated Eye Exam 06/22/2025 06/22/2024 eGFR 10/06/2025 10/06/2024, 08/24, 09/14/2024, Additional history exists DTaP/Tdap/Td Vaccine (6 - Td or Tdap) 07/10/2027 07/09/2017, 06/18/1984, 08/30/1980, Additional history exists Colon Cancer Screening-Colonoscopy 07/20/2033 07/21/2023 Pneumococcal vaccine <65 Completed 024, 04/18/2021, 04/18/2021, Additional history exists Hepatitis C Screening Completed 02/16/2024 , 01/30/2023, 04/30/2021 Hepatitis B Screening Completed 09/14/2024 , 2023, 10/06/2022, Additional history exists HPV Vaccines Aged Out No longer eligi ble based on patient's age to complete this topic Medical Devices Implanted Type Area Cogeneration Technician Device Identifier Shelf Expiration Date Model / Serial / Lot [employer] [id number] Seguin 15fr 62cm 2 Cuff Radiopaque Peritoneal Curl Catheter - Sn/A - [id number] Implanted:Qty : 1 on 03/14/2021 by Gildardo Leggett MD at [facility] Catheter N/A: Abdomen [employer] 07/01/2025 [id number] / N/A / [id number] Description:Peritoneal Dialy sis Catheter, Curl Cath, 2 Cuffs Graft Vasc 45cm 4-6mm [place] Acuseal Eptfe 3 Layer Kink Rst - [id number] - [id number] Implanted:Qty : 1 on 05/08/2022 by Uche Katz MD at [facility] Graft Left: Arm Wl [place] [id number] 05/21/2024 [id number] / [id number] / 00 Procedures Procedure Name Priority Date/Time [...] HEPATITIS C ANTIBODY Routine 02/16/2024 11:34 AM DELI ASSOCIATE Pre-kidney transplant, patient on transplant list ESRD (end stage renal disease) (HCC) COLONOSCOPY 07/21/2023 10:23 AM CDT HM MAMMOGRAPHY Routine 06/04/2021 from Last 3 Months or Most Recently Relevant to Health Maintenance Results * Beta 2 glycoprotein antibody, IgG, IgM (12/23/2024 10:05 AM CDT) [facility] Beta-2 glycoprotein I, IgG <1.4 <=19.9 units/mL Comment: Interpretive Data Negative: <20 U/mL Positive: > or = 20 U/mL Beta-2 glycoprotein 1 (Beta-2 GP1) antibodies are a more specific marker of thrombotic risk. It is expected that some samples will be ACL positive and Beta- 2 [id number]. In order to improve specificity, the International Congress on Antiphospholipid Antibodies recommends Beta-2 GP1 antibodies of IgG or IgM isotype (> the 99th percentile), obtained twice, at least 12 weeks apart, to support a diagnosis of antiphospholipid syndrome. The cutoff for this assay was developed from data based on the 99th percentile. These results were obtained with the [employer] 2200 System. Beta 2GP1 IgG values obtained with different manufacturers' assay methods may not be used interchangeably. Current interpretive data was last revised on 2016. Beta-2 glycoprotein I, IgM 1.9 <=19.9 units/mL [facility] HOLT Comment: Interpretive Data Negative: <20 U/mL Positive: [...] factor. These results were obtained with the [employer] 2200 System. Beta-2 GP1 IgM values obtained with different manufacturers' assay methods may not be used interchangeably. Current interpretive data was last revised on 2016. Blood 12/23/2024 10:0 5 AM CDT 12/23/2024 10:32 AM CDT Fannie Fountain NP LAB BLOOD ORDERABLES Final Result Performing Organization Address City/[facility] Co de Phone Number [facility] [place] [address] * PR3 - proteinase 3, Ab (12/23/2024 10:05 AM CDT) Proteinase 3 ab <0.2 <=0.9 Ab Index Comment: Interpretive Data Negative: <1 Ab Index Positive: > or = 1 Ab Index Current interpretive data was last revised on 2016. Blood 12/23/2024 10:0 5 AM CDT 12/23/2024 10:32 AM CDT Fannie Fountain NP LAB BLOOD ORDERABLES Final Result Performing Organization Address City/[facility] Co de Phone Number [facility] [place] [address] * MPO - myeloperoxidase antibody (12/23/2024 10:05 AM CDT) Myeloperoxidase ab <0.2 <=0.9 Ab Index Comment: Interpretive Data Negative: <1 Ab Index Positive: > or = 1 Ab Index Current interpretive data was last revised on 2016. Blood 12/23/2024 10:0 5 AM CDT 12/23/2024 10:32 AM CDT Fannie Fountain MARINE ANIMAL TRAINER LAB BLOOD ORDERABLES Final Result Performing Organization Address [facility] Co de Phone Number [facility] [place] [address] * (ABNORMAL) Anti-Neutrophilic Cytoplasmic Antibody (ANCA) with Reflex to MPO and PR3 Abs (0:05 AM CDT) ANCA Positive( A) Negative ANCA Titer 1:1280 titer [facility] ANCA Pattern P-ANCA [facility] Comment:IFA Testing is sugge stive of P-ANCA. Results by antigen specific Immunoassay (MPO & PR3) to follow. Blood 12/23/2024 10:0 5 AM CDT 12/23/2024 10:32 AM CDT Fannie Fountain MARINE ANIMAL TRAINER LAB BLOOD ORDERABLES Final Result Performing Organization Address [facility] [place] [address] * Antihistone antibodies (12/23/2024 10:05 AM CDT) Antihistone <1.0 U Comment: Value Explanation of Results ------ <1.0 Negative 1.0-1.5 Weak Positive 1.6-2.5 Moderate Positive >2.5 Strong Positive Test Performed at: [email or web address] [address] [address] IMAN CASTAÑEDA Blood 12/23/2024 10:0 5 AM CDT 12/23/2024 10:32 AM CDT Fannie Fountain MARINE ANIMAL TRAINER LAB BLOOD ORDERABLES Final Result [facility]IS HOLT [facility] Department [place] [address] * Uric acid (12/23/2024 10:05 AM CDT) Uric acid 4.2 2.5 - 7.0 mg/dL Blood 12/23/2024 10:0 5 AM CDT 12/23/2024 10:32 AM CDT Fannie Fountain MARINE ANIMAL TRAINER LAB BLOOD ORDERABLES Final Result Performing Organization Address [facility] Co de Phone Number DENNIS HOLT [facility] [place] [address] * XR Knee Bilateral Ap Standing (12/23/2024 [...] knees. Electronically signed by: Ric Watts M.D. Fannie Fountain MARINE ANIMAL TRAINER IMG XR PROCEDURES Fin al Result * HLA Antibody Screen by PRA or SAB per Schedule (Class I and Class II) (12/15/2024 10:00 AM CDT) Blood 12/15/2024 10:0 0 AM CDT Narrative HISTOTRAC - DELI ASSOCIATE Sample received in lab. Single Antigen Antibody [...] a method developed and validated by the [facility] laboratory based on an FDA-approved IVD kit (LABScreen Single-Antigen, [employer], [place], [place]). All patient serum samples are pretreated with EDTA before the screen to prevent complement interference. Additional serum treatments, such as adsorption and DTT treatment, may be performed as indicated. Interpretive comments: Low risk: MFI [id number]. Moderate risk: MFI [id number]. Increased risk: MFI >/= 5000. The presence [...] at the [facility], [address], 5th floor, [place], [address]. [place] # [id number]. Amber Berry, Ph.D., Hospital Director, HLA Laboratory Jonathan Brennan M.D., Ph.D., Receptionist, [facility] Laboratory Rehana Alarcon, Ph.D., CLIA Receptionist, [facility] Current methodology and interpretive comments last revised on 03/20/2022. us Miiram Garner MD LAB BLOOD ORDERAB LES Final [...] ORDERABLES Final Re sult Performing Organization Address [facility] de Phone Number [address] [address] * (ABNORMAL) Hemoglobin A1c (09/14/2024 5:21 AM CDT) Hgb A1C 6.2(H) 4.0 - 5.6 % Estimated Average Glucose 131 mg/dL DENNIS Comment: The ADA recommends reporting an estimated Average Glucose (eAG) with all Hemoglobin A1c results using the equation derived from a study of 507 normal and diabetic adults. Minority populations were underrepresented and children were not included. (Diabetes Care 31:6923-9282, 2008). The eAG is not equivalent to a fasting glucose. Blood 09/14/2024 5:21 AM CDT 09/14/2024 5:36 AM CDT Jonnathan Mojica DO LAB BLOOD ORDERABLES Vicki l Result Performing Organization Address [facility] de Phone Number [address] [address] * Lipid panel (06/21/2024 7:20 PM CDT) [...] revised on 2017. Triglycerides 112 <=149 mg/dL [facility] Comment: Interpretive Data Ages < or [...] revised on 2017. HDL 56 >=40 mg/dL [facility] Comment: Interpretive Data Ages < or [...] on 2017. LDL, calculated 62 <=129 mg/dL [facility] Comment: Interpretive Data Ages < or [...] revised on 2023. Non-HDL Cholesterol 82 mg/dL [facility] Comment: Interpretive Data Ages < or [...] revised on 2017. Chol/HDL ratio 2 [facility] Blood 06/21/2024 7:20 PM CDT 06/21/2024 7:40 PM CDT Narrative [facility] - 06/22/2024 8:42 AM CDT Reflex us Brandan Orr MD LAB BLOOD ORDERABLES Vicki l Result [facility] [place] [address] * Hepatitis C antibody Blood (02/16/2024 11:34 AM DELI ASSOCIATE) Hep C Ab Nonreactive Nonreactive Comment:Antibodies to HCV no t detected. Does NOT exclude the possibility of recent exposure to HCV. Current interpretive data was last revised on 21 Blood 02/16/2024 11:3 4 AM DELI ASSOCIATE 02/16/2024 11:45 AM DELI ASSOCIATE us Tonya Hammonds MD LAB MICROBIOLOGY - GENERAL ORDERABLES Final Result [facility] Department [place] [address] * Colonoscopy (07/21/2023 10:23 AM CDT) Anatomical Region Laterality Modality Other Narrative Procedure Note Haritha Stover MD - 07/21/2023 10:23 AM CDT [facility] Patient Name: Bakari Smith Procedure Date: 07/21/2023 10:23 AM Date of : 1980 Admit Type: Outpatient Age: 43 Gender: Female Attending MD: Haritha Stover M.D. Room: [facility] ENDOSCOPY ROOM 02 Note Status: Finalized Procedure: [...] The scope was passed under direct vision.The [id number] Colonoscope was introducedthrough the anus and advanced to the the cecum, identifiedby appendiceal orifice and ileocecal valve. The colonoscopy was performed without difficulty. The patient tolerated the procedure well. The qualityof the bowel preparation was evaluated using the BBPS (Riparius Bowel Preparation Scale) with scores of:Right Colon [...] On: 07/21/2023 10:23 AM Recognized by the [employer] for promoting quality in endoscopy Haritha Stover MD ENDOSCOPY PROCEDURES Final Res ult * HM MAMMOGRAPHY (06/04/2021) Impressions Rashida Schneider - 06/04/2021 IMPRESSION: 1. Benign mammogram. READ BY: NINO BAJWA MD 06/05/2021 Historical Provider HEALTH MAINTENANCE Final Result from Last 3 Months or Most Recently Relevant to Health Maintenance Insurance [employer] [facility] MED[facility]ARE MEDICARE MEDICARE MEDICARE Advance Directives For more information, please contact: [phone] * Full Code (Latest Code Status on File) Date Activated Date Inactivated Comments 09/13/2024 9:22 PM 09/15/2024 6:14 PM * Full Code Date Activated Date Inactivated Comments 06/22/2024 8:11 AM 06/23/2024 7:28 PM * Full Code Date Activated Date Inactivated Comments 07/21/2023 9:59 AM 07/21/2023 3:56 PM Care Teams Browning Processor Relationship Specialty Start Date End Date Sulema Lennon NP [address] [facility] [address] [place] [address] PCP - General Nurse Practitioner 09/14/24 Almita Rizzo, RN [address] [address] Wool Shearer 04/04/21 Beth Fernandez MD [address] [address] Referring Physician Nephrology 04/04/21 Maday Oviedo MD [address] [address] Neurology 09/12/22 Tomasz Scott DO [address] [place] [address] Qual Field Manager Cardiology 09/16/22 Meir Nazario MD [address] [place] [address] Obstetrics and Gynecology 04/11/24
--- OUTSIDE RECORDS SUMMARY | 2025-01-12 02:00 | XMS_ITS | Data Portability ---
[facility] Address [address] [place] [facility] [address] Care Team Providers Care Resin Coater Name Role Phone DEYVI ROSALES OTHER JESSIE DICKSON Sales Order Coordinator [facility] RHE[facility]AT[facility] Gang Tailer BETH FERNANDEZ Engineering Technical Writer ELÍAS MIX Gang Tailer Assessment No assessment recorded. Plan of Treatment Reminders Order Date Submit Date Provider Last Modified By Organization Details Last Modified Time Details Appointments None recorded. Lab HbA1c (hemoglobin A1c), blood 2023 024 macho In-Office Order, Internal Use Only DO Not Attach Compendium DO Not Attach Compendium, Do Not Delete/merge, [id number] 4 12:47:19 glucose, fingerstick , blood 2023 024 macho In-Office Order, Internal Use Only DO Not Attach Compendium DO Not Attach Compendium, Do Not Delete/merge, [id number] 4 12:47:21 CMP, serum or plasma 2023 024 MAHAMED MAYA, [address], [address], [place], [address], 4 23:07:49 albumin/cre atinine, mass ratio, urine 2023 024 MHAAMED MAYA, [address], [address], [place], [address], 4 10:15:48 TSH, ultra-sensi tive, serum 2023 024 MAHAMED [facility], [address], [address], [place], [address], 4 10:15:48 CBC 2023 024 MAHAMED [facility], [address], [address], [place], [address], 4 23:07:50 lipid panel, serum 2023 024 MAHAMED [facility], [address], [place], [address], 4 23:07:48 vitamin D, 25-hydroxy, total, serum 2023 024 MAHAMED [facility], [address], [place], [address], 4 10:15:50 HbA1c (hemoglobin A1c), blood 2022 023 macho In-Office Order, Internal Use Only DO Not Attach Compendium DO Not Attach Compendium, Do Not Delete/merge, [id number] 3 15:31:49 glucose, fingerstick , blood 2022 023 yasara In-Office Order, Internal Use Only DO Not Attach Compendium DO Not Attach Compendium, Do Not Delete/merge, [id number] 3 15:31:48 Referral neurologist referral - Head [...] Orders gabapentin 100 mg capsule 2023 024 [facility] [address] [place], [address], 4 20:08:16 fluticasone propionate 50 mcg/actuati on nasal spray,suspe nsion 2023 024 [facility] [address] [place], [address], 4 12:47:15 montelukast 10 mg tablet 2023 024 [facility] [address] [place], [address], 4 12:47:16 Kym Allergy 180 mg tablet 2023 024 [facility] [address] [place], [address], 4 12:47:15 Colace 100 mg capsule 2023 024 [facility] [address] [place], [address], 4 12:47:15 Lantus Solostar U-100 Insulin 100 unit/mL (3 mL) subcutaneou s pen 2023 024 [facility] [address] [place], [address], 4 12:47:15 OneTouch Ultra Test strips 2023 024 [facility] [address] [place], [address], 4 15:31:16 gabapentin 100 mg capsule 2023 024 [facility], [address] [place] [address], [address], 4 12:47:15 Diflucan 150 mg tablet 2023 024 [facility], [address] [place] [address], [address], 4 12:47:15 Colace 100 mg capsule 2022 023 [facility], [address] [place] [address], [address], 3 15:32:12 polyethylen e glycol 3350 17 gram/dose oral powder 2022 023 [facility], [address] [place] [address], [address], 3 20:15:56 fluticasone propionate 50 mcg/actuati on nasal spray,suspe nsion 2022 023 [facility], [address] [place] [address], [address], 3 15:32:14 montelukast 10 mg tablet 2022 023 [facility] [address] [place] [address], [address], 3 15:32:14 Kym Allergy 180 mg tablet 2022 023 [facility] [address] [place] [address], [address], 3 15:32:13 Lantus Solostar U-100 Insulin 100 unit/mL (3 mL) subcutaneou s pen 2022 023 [facility] [address] [place], [address], 3 15:32:15 Admelog SoloStar U-100 Insulin lispro 100 unit/mL subcutaneou s pen 2022 024 [facility] [address] [place], [address], 4 12:43:37 aspirin 81 mg tablet,juan yed release 2022 023 [facility] [address] [place], [address], 3 14:50:06 Lipitor 80 mg tablet 2022 023 [facility] [address] [place], [address], 3 14:56:45 Patient TargetsNo targets recorded. Patient Instructions Encounter Date Encounter Id Patient Instructions Last Modified By Organization Details Last Modified Time 06/11/2022 [id number] A healthy lifest yle: care instructions yarauz [...] dialysis yarauz Not available 06/11/2022 15:17:16 10/06/2022 [id number] allergies: care instructions yarauz Not available 10/06/2022 [...] medicine yarauz Not available 10/06/2022 15:08:09 02/03/2023 [id number] influenza (flu) vaccine: care instructions yarauz Not [...] diet see dentist every 6 months see testboard operator every 1-2 years vaccine yarauz Not available 02/03/2023 12:29:16 2023 [id number] allergies: care instructions yarauz Not available 2023 [...] medicine yarauz Not available 2023 12:31:18 09/08/2023 [id number] A healthy lifest yle: care instructions [email or web address] Not available 09/08/2023 20:08:14 Consider use of rae, kenyon, peppermint, coriander, fennel and cayenne pepper to stimulate your appetite. Lemon helps with limited taste. Please talk to your providers about being hungry but not having desire to eat. [email or web address] Not available 09/08/2023 20:08:14 Reason for Referral [...] eosin ophil s, auto, blood , absol douglas eosinophils, auto, blood, absolute 492.5 text: 0.0-70 [...] eosin ophil s, auto, blood , absol douglas eosinophils, auto, blood, absolute 364 text: 0.0-70 [...] DO Not Attach Compendium, Do Not Delete/merge, [id number] 10/06/2022 14:28:33 10/07/1910/06/2022 gluco se, finge rstic k, blood Blood Glucose: mg/dl 162 Not Available In-Off ice Order Internal Use Only DO Not Attach Compendium DO Not Attach Compendium, Do Not Delete/merge, [id number] 10/06/2022 14:28:35 03/04/19 24 03/04/2023 alumi num, [...] eosin ophil s, auto, blood , absol douglas eosinophils, auto, blood, absolute 219 text: 0.0-70 [...] total 171 mg/dL 100-19 9 Not Available [facility] Department [address] [place], [address], 2023 23:07:48 03/12/19 24 2023 LIPID PANEL triglyceride s 78 mg/dL 0-149 Not Available [facility] Department [address] [place], [address], 2023 23:07:48 03/12/19 24 2023 LIPID PANEL HDL cholesterol 70 mg/dL 40-999 Not Available [facility] Department [address] [place], [address], 2023 23:07:48 03/12/19 24 2023 LIPID PANEL VLDL cholesterol bertrand 16 mg/dL 5-40 Not Available [facility] Department [address] [place], [address], 2023 23:07:48 03/12/19 24 2023 LIPID PANEL LDL chol calc ([facility]) 96 mg/dL 0-99 Not Available [facility] Department [address] [place] [address], [address], 2023 23:07:48 03/12/19 24 2023 COMP. METAB OLIC PANEL (14) glucose 101 mg/dL 70-99 above high normal Not Available [facility] Department [address] [place] [address], [address], 2023 23:07:49 03/12/19 24 2023 COMP. METAB OLIC PANEL (14) BUN 46 mg/dL 6-24 above high normal Not Available [facility] Department [address] [place] [address], [address], 2023 23:07:49 03/12/19 24 2023 COMP. METAB OLIC PANEL (14) creatinine 12.18 mg/dL 0.76-1 .27 panic high RESUL TS VERIF IED AND SAUCEDA D TO DR MAYRA TALLEY ON BY Jesse bazzi, CPT AT 2108 ON 03/12. Not Available [facility] Department [address] [place] [address], [address], 2023 23:07:49 03/12/19 24 2023 COMP. METAB [...] disre tao that value . Not Available [facility] Department [address] [place] [address], [address], 2023 23:07:49 03/12/19 24 2023 COMP. METAB OLIC PANEL (14) BUN/creatini ne ratio 4 9-23 below low normal Not Available [facility] Department [address] [place] [address], [address], 2023 23:07:49 03/12/19 24 2023 COMP. METAB OLIC PANEL (14) sodium 142 mmol/ L 134-14 4 Not Available [facility] Department [address] [place] [address], [address], 2023 23:07:49 03/12/19 24 2023 COMP. METAB OLIC PANEL (14) potassium 4.6 mmol/ L 3.5-5. 2 Not Available [facility] Department [address] [place] [address], [address], 2023 23:07:49 03/12/19 24 2023 COMP. METAB OLIC PANEL (14) chloride 102 mmol/ L 96-106 Not Available [facility] Department [address] [place] [address], [address], 2023 23:07:49 03/12/19 24 2023 COMP. METAB OLIC PANEL (14) carbon dioxide, total 26 mmol/ L 20-29 Not Available [facility] Department [address] [place] [address], [address], 2023 23:07:49 03/12/19 24 2023 COMP. METAB OLIC PANEL (14) calcium 9.6 mg/dL 8.7-10 .2 Not Available [facility] Department [address] [place] [address], [address], 2023 23:07:49 03/12/19 24 2023 COMP. METAB OLIC PANEL (14) protein, total 7.0 g/dL 6.0-8. 5 Not Available [facility] Department [address] [place] [address], [address], 2023 23:07:49 03/12/19 24 2023 COMP. METAB OLIC PANEL (14) albumin 3.7 g/dL 3.9-4. 9 below low normal Not Available [facility] Department [address] [place] [address], [address], 2023 23:07:49 03/12/19 24 2023 COMP. METAB OLIC PANEL (14) globulin, total 3.3 g/dL 1.5-4. 5 Not Available [facility] Department [address] [place] [address], [address], 2023 23:07:49 03/12/19 24 2023 COMP. METAB OLIC PANEL (14) A/G ratio 1.0 1.2-2. 2 below low normal Not Available [facility] Department [address] [place] [address], [address], 2023 23:07:49 03/12/19 24 2023 COMP. METAB OLIC PANEL (14) bilirubin, total 0.2 mg/dL 0.0-1. 2 Not Available [facility] Department [address] [place] [address], [address], 2023 23:07:49 03/12/19 24 2023 COMP. METAB OLIC PANEL (14) alkaline phosphatase 161 IU/L 44-121 above high normal Not Available [facility] Department [address] [place] [address], [address], 2023 23:07:49 03/12/19 24 2023 COMP. METAB OLIC PANEL (14) AST (SGOT) 17 IU/L 0-40 Not Available [facility] Department [address] [place] [address], [address], 2023 23:07:49 03/12/19 24 2023 COMP. METAB OLIC PANEL (14) ALT (SGPT) 15 IU/L 0-32 Not Available [facility] Department [address] [place] [address], [address], 2023 23:07:49 03/12/19 24 2023 CBC, NO DIFFE RENTI AL/PL ATELE T WBC 9.4 x10e3 /uL 3.4-10 .8 Not Available [facility] Department [address] [place], [address], 2023 23:07:50 03/12/19 24 2023 CBC, NO DIFFE RENTI AL/PL ATELE T RBC 4.11 x10e6 /uL 3.77-5 .28 Not Available [facility] Department [address] [place], [address], 2023 23:07:50 03/12/19 24 2023 CBC, NO DIFFE RENTI AL/PL ATELE T hemoglobin 10.9 g/dL 11.1-1 5.9 below low normal Not Available [facility] Department [address] [place], [address], 2023 23:07:50 03/12/19 24 2023 CBC, NO DIFFE RENTI AL/PL ATELE T hematocrit 36.5 % 34.0-4 6.6 Not Available [facility] Department [address] [place], [address], 2023 23:07:50 03/12/19 24 2023 CBC, NO DIFFE RENTI AL/PL ATELE T MCV 89 fL 79-97 Not Available [facility] Department [address] [place], [address], 2023 23:07:50 03/12/19 24 2023 CBC, NO DIFFE RENTI AL/PL ATELE T MCH 26.5 pg 26.6-3 3.0 below low normal Not Available [facility] Department [address] [place], [address], 2023 23:07:50 03/12/19 24 2023 CBC, NO DIFFE RENTI AL/PL ATELE T MCHC 29.9 g/dL 31.5-3 5.7 below low normal Not Available [facility] Department [address] [place], [address], 2023 23:07:50 03/12/19 24 2023 CBC, NO DIFFE RENTI AL/PL ATELE T RDW 13.8 % 11.5-1 4.5 Not Available [facility] Department [address] [place], [address], 2023 23:07:50 03/12/19 24 2023 CBC, NO DIFFE RENTI AL/PL ATELE T NRBC 0 % 0-0 Not Available [facility] Department [address] [place], [address], 2023 23:07:50 03/12/19 24 03/13/2023 ALBUM IN/CR EATIN INE RATIO ,URIN E creatinine, urine 104.7 mg/dL notest ab. Not Available [facility]) [address] [facility], [place], [address], 03/13/2023 10:15:47 03/12/19 24 03/13/2023 ALBUM IN/CR EATIN INE RATIO ,URIN E albumin, urine 511.4 ug/mL notest ab. Resul ts confi rmed on dilut ion. Not Available [facility] ([facility]) [address] [facility], [place], [address], 03/13/2023 10:15:47 03/12/19 24 03/13/2023 ALBUM IN/CR EATIN INE RATIO ,URIN E alb/creat ratio 488 mg/g_ creat 0-29 above high normal Kimberly l: 0 - 29 Moder ately incre ased: 30 - 300 Sever naima incre ased: >300 Not Available [facility] ([facility]) [address] [facility], [place], [address], 03/13/2023 10:15:47 03/12/19 24 03/13/2023 TSH RFX ON ABNOR MAL TO FREE T4 TSH 2.130 uIU/m L 0.450- 4.500 Not Available [facility]) [address] [facility], [place], [address], 03/13/2023 10:15:48 03/12/19 24 03/13/2023 VITAM IN [...] um and D. Leobardo karimi [place]: [facility] . 2. Jarrett boswell [place], Hailee burgess [place], Alma Delia off-F errar i BAUMANN, et al. Evalu ation , treat ment, and preve ntion of vitam in D defic iency : an Endoc rine Socie ty clini bertrand pract ice guide line. JCEM. 2010; 96(7) :1911 -30. Not Available [facility] ([facility]) [address] [facility], [place], [address], 03/13/2023 10:15:49 03/12/19 24 2023 HbA1c (hemo globi n A1c), blood HbA1c 6.4 Not Available In-Office Order Internal Use Only DO Not Attach Compendium DO Not Attach Compendium, Do Not Delete/merge, [id number] 2023 11:51:02 03/12/19 24 2023 gluco se, finge rstic k, blood Blood Glucose: mg/dl 178 Not Available In-Off ice Order Internal Use Only DO Not Attach Compendium DO Not Attach Compendium, Do Not Delete/merge, [id number] 2023 11:51:04 04/01/19 24 04/01/2023 iron- monty [...] eosin ophil s, auto, blood , absol douglas eosinophils, auto, blood, absolute 545 text: 0.0-70 [...] eosin ophil s, auto, blood , absol douglas eosinophils, auto, blood, absolute 411 text: 0.0-70 [...] Available Not Available 11/04/2024 14:06:16 08/26/1908/26/2023 iron- monty ng capac ity, unsat urate [...] eosin ophil s, auto, blood , absol douglas eosinophils, auto, blood, absolute 446 text: 0.0-70 [...] eosin ophil s, auto, blood , absol douglas eosinophils, auto, blood, absolute 614 text: 0.0-70 [...] eosin ophil s, auto, blood , absol douglas eosinophils, auto, blood, absolute 414 text: 0.0-70 [...] eosin ophil s, auto, blood , absol douglas eosinophils, auto, blood, absolute 415 text: 0.0-70 [...] eosin ophil s, auto, blood , absol douglas eosinophils, auto, blood, absolute 753 text: 0.0-70 [...] eosin ophil s, auto, blood , absol douglas eosinophils, auto, blood, absolute 382 text: 0.0-70 [...] eosin ophil s, auto, blood , absol douglas eosinophils, auto, blood, absolute 429 text: 0.0-70 0.0 Not Available Not Available 11/04/2024 14:06:04 07/30/19 25 07/29/2024 eosin ophil s, auto, blood , absol douglas eosinophils, auto, blood, absolute 429 text: 0.0-70 [...] eosin ophil s, auto, blood , absol douglas eosinophils, auto, blood, absolute 270 text: 0.0-70 [...] eosin ophil s, auto, blood , absol douglas eosinophils, auto, blood, absolute 496 text: 0.0-70 [...] eosin ophil s, auto, blood , absol douglas eosinophils, auto, blood, absolute 496 text: 0.0-70 [...] bell at: 19:28 :30 on 10/10 by: RHONA DUMONT to and read back by:LUIS BAE [...] 25 10/13/2024 SJS CYTOL OGY sjs cytology [facility] Dep[facility] tment of Labor atory Medic ine [address] [facility] [place] [address] Telep karissa: [phone], exten [place] [phone] 07 Patho logy Repor t Non-g yneco logic Cytol ogy Repor t Name: DOMINGA ZAMBRANO Speci men #: [id number] Age: [id number] (Age: 44) Locat ion: [facility] Sex: F Proce dure Date: 2024 Hospi ozzie #: [id number] Date Recei [place]: 2024 Date Repor graeme: 025 Provi abdirahman: IFATH Thea Ji MD PHD Sourc e: PERIT CALDERÓN FLUID Clini bertrand Histo ry: End stage renal disea se, pneum onia FINAL DIAGN OSIS: Perit calderón fluid , parac entes is: - Satis facto ry for evalu ation . - Negat kamini for malig nant cells . Diagn osis [...] devel oped by and perfo rmed at [facility] , [address], [facility] [place] [address] . All tests repor graeme here have [...] and sign out were perfo rmed at [facility], [address] , [place] [address] . Kristel ctron icall y Mayuri d Out Guillermo kennedy M.D. Not Available [facility] (Lab) [address], [place], [address], 10/25/2024 16:28:00 10/14/19 25 10/13/2024 gluco se, [...] fluid nucleated cells, count, body fluid (obs) 80979 text: cells/ uL The refer ence range [...] ED BACK BY DELFINO MINER AT 1042 [id number] DY Not Available Not Available 14:03:38 [...] t [place] [id number] on 10/15 08:36 :21, and has [...] Diagn ostic s [facility], [address] , [place], [place] Scott Rashid M.D., Ph.D. , [facility] , CLIA [id number] Not Available Not Available 11/04/2024 14:03:43 10/19/1910/21/2024 DRVVT CONFI RMATI ON drvvt confirmation Negati ve text: negati ve Test Perfo rmed by [place], [facility], [address] [employer] [place], [place] Scott Rashid M.D., Ph.D. , [facility] atori es [phone], CLIA [id number] Not Available Not Available 11/04/2024 14:03:43 10/19/1910/21/2024 lupus antic oagul ant neutr gage tion hexag onal phase phosp holip id, plate let poor plasm a lupus anticoagulan t neutralizati on hexagonal phase phospholipid , platelet poor plasma POSITI VE text: negati ve abnormal Test Perfo rmed by [place], [facility], [address] [facility], [place] Scott Rashid M.D., Ph.D. , [facility] , CLIA [id number] [address] Not Available Not Available 11/04/2024 14:03:43 10/19/1910/21/2024 [...] Diagn ostic s [facility], [address] [address] [facility], [place] Scott Rashid M.D., Ph.D. , [facility] atori es , CLIA [id number] Not Available Not Available 11/04/2024 14:03:43 10/19/19 25 10/20/2024 antit hromb in activ ity, plasm a antithrombin activity, plasma 89 text: 80 - 135 % normal Test Perfo rmed by [employer] [place], [facility], [address] [address] [place], [place] Patjacques Rashid M.D., Ph.D. , [facility] atori es , CLIA [id number] [address]86 Not Available Not Available 11/04/2024 14:03:43 10/19/19 [...] Diagn ostic s [facility], [address] [facility] [place] Scott Rashid M.D., Ph.D. , [facility] atori es , CLIA [id number] Not Available Not Available 11/04/2024 14:03:43 10/19/19 25 10/20/2024 prote in S activ ity, plasm a lab interpretati on Abnorm al Not Available Not Available 14:03:43 10/19/19 25 10/20/2024 prote in C activ ity, plasm a protein C activity, plasma 137 text: 70 - 180 % normal Test Perfo rmed by [place], [facility], [address] , [place], [place] Scott Rashid M.D., Ph.D. , [facility] jaydeni [facility] , CLIA [id number] Not Available Not Available 11/04/2024 14:03:43 10/19/19 [...] , SCL70 , JO1, CENTR OMERE , PRINT [employer] OPERATOR HISTO NE MUST BE ORDER ED SEPAR [...] 25 10/20/2024 patho logy study pathology study [facility] Hospit al Depart ment of [facility] [address] [place] [address] Teleph one: [phone], extens ion [id number] Pathol ogy Report Periph eral Smear Report Name: MONI SMART en #: [id number] Age: [birth year] (Age: 44) Locati on: [id number] SG Sex: F Proced ure Date: Hospit al #: [id number] 30 Date Receiv ed: Date Report ed: Provid er: MAXINE PAZ MD PHD MELL ARTHUR MD Source : [facility] Histor y: Leukoc [...] was interp reted and signed out at [facility] [place] [facility], [address] [place] [address]. Not Available Not Available 14:03:42 10/20/19 25 10/19/2024 SJS [facility]OL [facility] [address] [place] [address] Telep karissa: , exten [place] [phone] Patho logy Repor t Non-g yneco logic Cytol ogy Repor t Name: DOMINGA ZAMBRANO Speci men #: [id number] Age: [id number] (Age: 44) Locat ion: [facility] Sex: F Proce dure Date: 2024 Hospi ozzie #: [id number] Date Recei [place]: 2024 Date Repor graeme: 2024 Provi abdirahman: YOSEF WEN MD MAXINE P JEROM E MD PHD [facility] e: PLEUR AL FLUID , LEFT Clini [...] and sign out were perfo rmed at [facility], [address] , [facility] [address] . Kristel ctron icall y Mayuri d Out TEJAL LYONS MD Not Available [facility] (Lab) [address] [facility], [place], [address], 10/21/2024 12:00:58 10/20/19 25 10/19/2024 SJS CYTOL OGY [facility] [address] [place] [address] Telep karissa: , exten [place] 07 Patho logy Repor t Non-g yneco logic Cytol ogy Repor t Name: DOMINGA ZAMBRANO Speci men #: [id number] Age: 119[birth year] (Age: 44) Locat ion: [facility] Sex: F Proce dure Date: 2024 Hospi ozzie #: [id number] Date Recei [place]: 2024 Date Repor [...] and sign out [facility], [address] [place] [address], [place] [address] . Kristel ctron icall y Mayuri d Out XIANG JUAN MD Not Available [facility] (Lab) [address] [facility], [place], [address], 10/25/2024 13:26:17 10/20/1910/19/2024 gluco se, QN, test [...] body fluid erythrocytes , qn, body fluid 60659 text: cells/ uL The refer ence range [...] + scree n, blood blood unit number [id number] Not Available Not Available 14:03:44 10/20/19 [...] type + scree n, blood issue date/time [id number] Not Available Not Available 14:03:44 10/20/19 25 10/20/2024 type + scree n, blood product code [id number] Not Available Not Available 14:03:44 10/20/19 [...] [place] [id number] on 10/19 07:28 :06, and has [...] eosin ophil s, auto, blood , absol douglas eosinophils, auto, blood, absolute 566 text: 0.0-70 [...] abdom en No observ ation record ed. [facility] [address], [place], [address], 10/06/2022 15:11:10 06/16/19 23 06/14/2022 CT, abdom en + pelvi s, w/o contr ast No observ ation record ed. [place] [id number] [facility] [address], [place], [address], 10/06/2022 15:11:10 11/02/19 23 11/01/2022 XR, chest , 1 view No observ ation record ed. [place] [id number] [facility] [address], [place], [address], 11/05/2022 17:56:22 01/10/20 23 12/25/2022 MRI, abdom en + pelvi s, w/wo contr ast No observ ation record ed. [facility] Advanced [facility] - Gynecologic Oncology [address] [place] [address], [address], 01/12/2023 10:36:39 03/19/19 24 03/17/2023 MAMMO , scree lexx, bilat eral No observ ation record ed. [facility] [address] [place], [address], 03/24/2023 14:16:33 06/19/19 24 06/19/2023 US, duple x, arter ial, upper extre mity No observ ation record ed. [facility] [address] [facility] [address], [place], [address], 07/02/2023 11:53:57 11/15/19 25 11/14/2024 MAMMO , scree lexx, bilat eral No observ ation record ed. [facility] [address] [place], [address], 12/09/2024 13:03:21 11/15/19 25 11/14/2024 MAMMO , scree lexx, bilat eral No observ ation record ed. [facility] Scheduling [address] [place], [address], 11/18/2024 14:21:38 Result Notes None recorded. Problems Name Problem SNOMED Code Status Onset Date Resolution Date Notes Provider Name and Address Organization Details Recorded Time Anterior knee pain 780532417 Completed 07/09/2017 Danica Al[place] [facility] 8 16:14:18 Uncontro lled type 2 diabetes mellitus 084172671 Active Giselle remy [place] [facility] 2 10:42:39 Painful mouth 912741009 Completed 11/22/2014 Giselle Betancour t [place] [facility] 6 10:27:39 Knee pain Completed 07/09/2018 Danica [place] [facility] 9 11:36:54 Right upper quadrant pain 517083820 Completed 07/09/2017 Danica [place] [facility] 8 16:17:24 Epigastr ic pain 44914562 Completed 07/09/2017 Dan[place] [facility] 8 16:18:28 Heartbur n 81476102 Completed 07/09/2017 Dan[place] [facility] [place] 16:13:45 Flatulen t dyspepsi a 360550318 Completed 07/09/2017 Dan[place] [facility] [place] 16:17:14 Diabetes mellitus 53062686 Completed 11/22/2014 Giselle [place] [facility] 6 10:27:39 Helicoba cter detected in blood 070983410 Completed 07/09/2017 Dan[place] [facility] 8 16:13:50 Acute peptic ulcer 973404990 Completed 07/09/2017 Dan[place] [facility] 8 16:13:58 Patellof emoral osteoart hritis 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 Active Giselle remy [place] [facility] 2 10:44:24 Infestat ion by Sarcopte s scabiei ernesto hominis 650023211 Completed 11/22/2014 Danica [place] [facility] 8 16:13:39 Thigh pain 45477620 Completed 07/09/2017 Dan[place] [facility] [place] 16:18:22 Diabetic peripher al neuropat hy 096030269 Active Giselle remy [place] [facility] 2 10:43:41 Infestat ion by Sarcopte s scabiei ernesto hominis 441943608 Completed 07/09/2017 Dan[place] [facility] 8 16:13:39 Osteoart hritis of knee 402120157 Active DENNY [place], [place] - [facility] 2 10:44:14 Bronchit is 42371461 Completed 07/09/2017 Dan[place] [facility] [place] 16:17:39 Acute bronchit is 42854653 Completed 07/09/2017 Dan[place] [facility] [place] 16:13:34 Allergic rhinitis 97537409 Active Giselle rem[place] [facility] 2 10:42:02 Eruption 906557551 Completed 07/09/2017 Danica [place] [facility] [place] 16:17:18 Otitis media 56513450 Completed 201607/09/2017 Dan[place] [facility] [place] 16:18:08 Acute conjunct ivitis 44643834 Completed 201607/09/2017 Dan[place] [facility] 8 16:17:46 Acute laryngit is 5673575 Completed 201607/09/2017 [place] [facility] [place] 16:18:18 Hyperten sive disorder 99407264 Active 2018 Giselle rem[place] [facility] 2 10:42:15 Chronic kidney disease stage 3 406071777 Completed 201804/18/2021 follows with Ivonne Fernandez at [facility] Danica Al[place] [facility] 2 12:05:25 Gastroes ophageal reflux disease 623933205 Active 2020 Giselle remy, [place] [facility] 2 10:42:49 Irritabl e bowel syndrome 59375475 Active 2020 Giselle remy, [place] [facility] 2 10:44:10 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 509419248 Active 2021 Giselle remy, [place] [facility] 2 10:41:58 Vitamin D deficien cy 95607571 Active 2021 Giselle remy, [place] [facility] 2 10:42:32 Family history of malignan t neoplasm of breast in first degree relative 513539537 Active 2021 Jessie Dickson [facility] Attn: Kerry g,[address] [place], [address], [place] [facility] 2 11:34:39 Cyst of left ovary 34121324197 830038 Active 2021 Giselle remy [place] [facility] 2 10:45:06 Morbid obesity 978638793 Active 2021 Giselle remy, [place] [facility] 2 10:42:28 Pelvic mass 64619466 Active 2021 Jessie Dickson [facility] Attn: Accountin g,[address] [place], [address], [place] [facility] 2 11:34:39 Chronic constipa tion 140059155 Active 2021 Giselle remy, [place] 2 10:42:07 History of optic neuritis 66159282154 500013 Active 2021 Giselle remy MA null, [place] - [facility] 2 10:44:00 Bereavem ent 70608585 Active 2021 JOHN Topete Attn: Accountin g,[address] [facility], [place], [address], [facility] - SI 2 12:54:36 Body mass index 30+ - obesity 798832791 Active 2021 Danica Alvarez RN null, [facility] SI 3 14:27:16 History of cerebrov ascular accident 534162347 Active 2022 JOHN Topete Attn: Accountin g,[address] [facility], [place], [address], [facility] - SI 3 15:13:27 Mass of right breast 57316351298 474498 Active 2022 JOHN Topete Attn: Accountrosemary g,[address] [facility], [place], [address], [facility] - SI 3 12:28:12 Obesity 213559762 Active 2023 JOHN Topete Attn: Accountin g,[address] [facility], [place], [address], [facility] - SI 4 12:29:07 Problem Notes None recorded. Procedures Surgical History Date Name Laterality Status Provider Name and Address Organization Details Recorded Time 06/05/19 22 Date of Last Mammogram completed Danica Alvarez RN [facility] 10/06/2022 14:29:46 03/21/19 22 Date of Last Pap Smear completed Danica Alvarez RN [facility] 10/06/2022 14:43:25 03/14/19 22 oophorectomy completed JOHN Topete Attn: Accounting,[address] [facility], [place], [address], [place] [facility] 03/21/2021 14:05:13 03/14/19 22 laparoscopic insertion of peritoneal dialysis catheter completed JOHN Topete Attn: Accounting,[address] , [place], [address], [place] [facility] 03/21/2021 14:03:20 03/20/19 16 Joint Injection completed Tomer Boles MD [address] [place], [address], [place] [facility] 03/20/2015 11:44:06 12/20/19 15 Joint Injection completed Tomer Boles MD [address] [place], [address], [facility] - [facility] 12/19/2014 12:04:38 02/23/18 95 Caesarean Section completed Danica Alvarez RN [facility] 06/07/2014 16:13:25 02/23/18 94 Caesarean Section completed Danica Alvarez RN [facility] 06/07/2014 16:13:25 02/23/18 92 Caesarean Section completed Danica Alvarez RN [facility] 06/07/2014 16:13:25 Imaging Results None recorded. Procedure Notes None recorded. Medical Equipment None Reported. Allergies Allergen ID Allergen Name Allergen Category Reaction Reaction Severity Criticality Documentation Date Start Date Code Code System Note Provider Name and Address Organization Details Recorded Time 76097 Flagyl medicatio n hives Not available Not available 07/06/2014 6 RxNorm Michael taylor [facility] 5 12:31:18 87699 omeprazol e medicatio n rash Not available Not available 11/22/2014 7646 RxNorm Sep 2014 DELFINO Henriquez, [facility] 5 12:29:46 Medications Name Sig Start Date [...] completed Not Available Not Available Not Available FreeBaldemar Lancmackenzie 28 gauge 10/06 completed Not Available Not [...] e 50 mcg/actua tion nasal spray,fernando pension [place] 1 spray twice a day by intranas [...] 2nd Gen Pen Needle 32 gauge x 5/32 USE DIRECTED active Not Available Not Available [...] % 68 /min 98.1 [degF] 32.6 kg/m2 29402.4 g 140/90 mm[Hg] Giselle remy MA [facility] 4 11:59:24 Date Recorded Body height Body mass index (BMI) Body weight Oxygen saturation Oxygen saturation in Arterial blood by Pulse oximetry Heart rate Body temperature Systolic And Diastolic Provider Name and Address Organization Details Last Updated DateTime 3 160.02 cm 36.3 kg/m2 23111.4 4 g 99 % 99 % 86 /min 98.1 [degF] 140/90 mm[Hg] Giselle remy MA [facility] 3 14:15:58 Date Recorded Body height Body mass index (BMI) Body weight Oxygen saturation Oxygen saturation in Arterial blood by Pulse oximetry Heart rate Respiratory rate Body temperature Systolic And Diastolic Provider Name and Address Organization Details Last Updated DateTime 4 160.02 cm 32.1 kg/m2 00169.2 2 g 100 % 100 % 68 /min 16 /min 98.1 [degF] 184/90 mm[Hg] Asad Mcfarlane MA [facility] 4 19:40:59 Date Recorded Body height Body mass index (BMI) Body weight Heart rate Body temperature Systolic And Diastolic Provider Name and Address Organization Details Last Updated DateTime 3 160.02 cm 33.5 kg/m2 37451.9 6 g 80 /min 97.9 [degF] 120/74 mm[Hg] Danica Alvarez RN [facility] 3 14:52:55 Date Recorded Body height Body mass index (BMI) Body weight Body temperature Oxygen saturation Oxygen saturation in Arterial blood by Pulse oximetry Heart rate Systolic And Diastolic Provider Name and Address Organization Details Last Updated DateTime 3 160.02 cm 32.1 kg/m2 83443.6 2 g 98.5 [degF] 98 % 98 % 74 /min 122/70 mm[Hg] Giselle remy MA [facility] 3 11:37:24 Social History Question Answer Notes LastModified by Organizat ion Details LastModified Time Tobacco Smoking Status Never Smoker Danica Alvarez RN [facility], [facility] 06/07/2014 16:13:25 Do You Have An [...] not available 04/18/2021 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 None Information not available 04/18/2021 Mental Status Question Answer Note LastModified by Organization D etails LastModified Time Do you feel stressed (tense, restless, nervous, or anxious, or unable to sleep at night)? [id number] Information not available 03/21/2021 Family History Relationship [...] Daughter Removal of pulmonary embolus 20 20 yasara Not available 2021 12:44:17 Medical History Condition [...] pneumococcal polysaccharide PPV23 8 completed Not Available [facility] 2019 02:45:24 Tdap 8 completed Not Available [facility] 2019 02:35:23 Pneumococcal conjugate PCV 13 2 completed Danica Alvarez RN [place], [place] [facility] 04/19/2021 09:45:40 Hep B, adult 2 completed Danica Alvarez RN null, [place] [facility] 04/19/2021 09:44:41 Influenza, split virus, quadrivalent, preservative 2 completed Alonzo Reynolds MD Attn: Accounting[address] [place], [address], [place] [facility] 12/30/2021 15:50:00 Hep B, adult 3 completed JOHN Topete Attn: Accounting[address] [place], [address], [place] [facility] 10/07/2022 09:34:18 Influenza, split virus, quadrivalent, preservative 3 completed Cordelia Alexander [place], [place] [facility] 02/03/2023 13:00:18 Hep B, adult 4 completed Yetzenia Yessi, [employer] Attn: Accounting[address] [facility], [place], [address], [place] [facility] 2023 15:26:13 Pneumococcal conjugate PCV20, polysaccharide PXL675 conjugate, adjuvant, PF 4 completed Jessie Dickson [employer] Attn: Accounting[address] [facility], [place], [address], [facility] - [facility] 2023 15:26:13 Past Encounters Encounter ID Performer Location Encounter Start Date Encounter Closed Date Diagnosis/Indication Diagnosis SNOMED-CT Code Diagnosis ICD10 Code Diagnosis IMO Codes Diagnosis Note [id number] Waldemar La MD [facility] [address] [place] [address] 06/07/2014 15:52:20 06/08/2014 15:51:04 Anterior knee pain 636754656 06/04/2014 left knee xray=moder ate joint effusion otherwise normal 05/05/2014 left knee xray=joint effusion otherwise normal 11/24/2013 left knee xray=kimberly l the patient has not gone to PT which was ordered back in 10/2013 as something came up advised weight loss stressed to take Gabapentin 300mg tid daily not prn Uncontroll ed type 2 diabetes mellitus 172389506 the patient follows with Dr. Catherine Gaytan Endocrinol og at [place]. The patient is non compliant with treatment and management of DM2 [id number] Kingsley Cardenas MD [address] [address] 06/20/2014 17:46:17 06/21/2014 09:46:05 Painful mouth 763875470 antibiotic s and follow up Knee pain 00812867 sees or tho August 15... pain meds and follow up [id number] Waldemar La MD [facility] [address] [place] [address] 07/06/2014 12:15:55 07/11/2014 13:25:20 Right upper quadrant pain 163663511 06/29/2014 CT of ABD/PELVIS showed a contracted Gallbladde r 07/03/2014 GB u/S = NORMAL Completed 1 week of daily Omeprazole BRAT diet avoid spicy foods or anything aggravatin g Epigastric pain 40855487 Heartburn 61888266 Flatulent dyspepsia 872701400 Diabetes mellitus 69994269 Patient follows up with ENDOCRINOL DENIS AT [facility] for this problem--s he is to continue to follow up with that office for this medical problem. [id number] Waldemar La MD [facility] [address] [place] [address] 07/19/2014 16:17:50 07/21/2014 16:53:41 Knee pain 24378380 see orthopedic s stop Ibuprofen for now will give some Tramadol for pain until seen by Ortho Continue PT Patient to discuss Rx for brace with Ortho Acute peptic ulcer 880023663 complete Triple therapy keep apt with GI Avoid aggravatin g foods [id number] Tomer Boles MD [facility] [address] [place] [address] 08/15/2014 09:14:17 08/16/2014 12:02:00 Patellofemoral osteoarthritis 264029497 [id number] Jessie Dickson [facility] [address] [place] [address] 10/02/2014 13:49:33 10/09/2014 12:46:07 Infestation by Sarcoptes scabiei ernesto hominis 165329655 [id number] Jessie Dickson [facility] [address] [place] [address] 11/22/2014 12:15:53 11/23/2014 17:10:01 Thigh pain 92924808 Increase Gabapentin 600mg bid to tid Keep blood sugars in the low 100's weight loss, exercise diabetic neuropathy informatio n discussed and handout given Knee pain 42229494 see orthopedic s--as patient voices difficulty in getting an appointmen t RN has helped to get appt. and patient is now scheduled for 12/19/2014 --keep appointmen t weight loss/ROM exercises at home Use brace as directed Diabetic p eripheral neuropathy 114128701 Uncontroll ed type 2 diabetes mellitus 666279249 the patient follows with Dr. Catherine Gaytan Endocrinol ogheather at [place]. The patient is non compliant with treatment and management of DM2 2/2 to issues with her medication s not covered by insurance per patient report discussed ramificati ons of uncontroll ed DM and neuropathy symptoms patient is to call her Endocrinol ogists office for appointmen t [facility] to get ALL her medication s monitor blood pressure for elevations -- patient to keep a log and if continued elevations noted to schedule appointmen t and/or take with endocrinol ogist at [place] [id number] Tomer Boles MD [facility] [address] [place] [address] 12/19/2014 10:37:52 12/19/2014 16:01:48 Knee pain 54638287 M25.569 Patellofem oral osteoarthritis 304973258 M17.9 Infestatio n by Sarcoptes scabiei ernesto hominis 311370151 B86 [id number] Tomer Boles MD [facility] [address] [place] [address] 03/20/2015 09:57:27 03/20/2015 13:54:02 Osteoarthritis of knee 392273393 M17.9 Anterior knee pain 91106 3006 M25.569 [id number] Jessie Dickson [facility] [address] [place] [address] 06/07/2015 10:25:17 06/11/2015 17:59:47 Adult health examination 252065563 Z00.01 Acute bronchitis 3196451 2 J20.9 Allergic rhinitis 357518 04 J30.9 Uncontroll ed type 2 diabetes mellitus 206738641 E11.65 the patient follows with Dr. Catherine Gaytan Endocrinol ogy at [place]. The patient reports she is now compliant [...] fos fasting labs which she will get [facility] Medication monitoring 39 9128558 Z51.81 Patient was started on B/P medicine Lisinopril 5mg once daily per Endo Tessie black NP on 04/10/2015= =she was given 11 RF and still using first bottle [id number] Carmelo Shore PA-C [address] [address] 05/31/2015 17:04:34 06/16/2015 13:13:12 Bronchitis 81439532 J40 [id number] Waldemar La MD [address] [address] 08/17/2015 18:18:44 08/21/2015 03:47:53 Eruption 922903862 R21 [id number] Carmelo Shore PA-C [address] [address] 04/24/2016 17:43:51 04/25/2016 17:15:56 Otitis media 68385689 H66.91 Acute conjunctivitis 537 72941 H10.31 Acute laryngitis 9878328 J04.0 viral [id number] Mxa Mayes MD [facility] [address] [place] [address] 07/09/2017 15:52:35 07/10/2017 10:25:39 Gynecologic examination 51668214 Z01.411 Self breast exam calcium rich foods handout vitamin D 2000 iu daily exercise weight loss diet Administra tion of pneumococcal vaccine 35531885 Z23 Administra tion of diphtheria, pertussis, and tetanus vaccine 874400317 Z23 Morbid obesity 317292806 E66.01 Cyst of left ovary [address] 7590141 N83.202 Uncontroll ed type 2 diabetes mellitus 418923820 E11.65 the patient follows with Dr. Catherine Gaytan Endocrinol ogy at [place]. The patient reports she is now compliant with treatment and management of DM2 2/2 to issues with her medication s not covered by insurance per patient report discussed ramificati ons of uncontroll ed DM and neuropathy symptoms patient is to call follow up with Endocrinol ogist for management of this problem Family his tory of malignant neoplasm of breast in first degree relative 686650840 Z80.3 Patient refuses referral for genetic testing [id number] Max Mayes MD [facility] [address] [place] [address] 09/23/2017 12:32:53 09/30/2017 18:12:11 Vaginitis 89502528 N76.0 Candidal vulvovaginitis 48790824 B37.3 [id number] Mayes MD [facility] [address] [place] [address] 07/09/2018 11:53:24 07/12/2018 10:40:14 Gynecologic examination 43068895 Z01.411 Self breast exam calcium rich foods handout vitamin D 2000 iu daily exercise weight loss diet Last pap 07/09/2017 normal due in 2020 Morbid obesity 875992390 E66.01 40.7 bmi Cyst of left ovary 82328 55759 3234348 N83.202 Uncontroll ed type 2 diabetes mellitus 366383624 E11.65 g the patient follows with Dr. Catherine Gaytan Endocrinol ogy at [place]. The patient reports she is now compliant [...] neoplasm of breast in first degree relative 731226628 Z80.3 Patient's mother had breast cancer at 40 y/o Screening for malignant neoplasm of breast 660080553 Z12.31 Patient's mother had breast cancer at 40 y/o Adjustment disorder with depressed mood 62150279 F43.21 psychother [facility] list [id number] Alonzo Reynolds MD [facility] [address] [address] 03/21/2021 11:24:25 03/22/2021 06:47:39 Gynecologic examination 48094336 Z01.411 Self breast exam calcium rich foods handout vitamin D 2000 iu daily exercise weight loss diet Last pap 07/09/2017 normal Morbid obesity 666139772 E66.01 39.4 bmi Cyst of left ovary 01234 72629 5713680 N83.202 Uncontroll ed type 2 diabetes mellitus 489349884 E11.65 the patient is currently not following with anyone for this problem the patient now [place] with [facility] [place] using LantusHydr alazine 100mg bidLisinop ril 20mg daily Family his tory of malignant neoplasm of breast in first degree relative 599874381 Z80.3 Patient's mother had breast cancer at 40 y/oPATIENT WAS REFERRED TO COUNSELING BUT THE PATIENT DID NOT FOLLOW THRU Screening for malignant neoplasm of breast 344410497 Z12.31 Patient's mother had breast cancer at 40 y/o Adjustment disorder with depressed mood 54215248 F43.21 psychother apist list Hypertensive disorder 38 602455 I10 BP Goal: Less than 150/90 BP Controlled : yes; per the JNC8 guidelines in the absence of renal disease and DM Healthy Weight: 5'3= 107-140 lbs Discussed: Low sodium balanced diet, moderate exercise at least 3-4 times per week for an average of 40 minutes Next Visit: 3month(s) [id number] Waldemar La MD [facility] [address] [address] 04/18/2021 11:33:48 04/19/2021 07:52:01 Uncontrolled type 2 diabetes mellitus 180363072 E11.65 HA1C 6.1random accucheck 183the patient is currently not following with anyone for this problem she had been getting meds during ER visits-she had hospitaliz [place]ion [place] 01/20/2021 found to be in ARF-starte d on dialysissh e presents today to establish care at this centerthe patient now on dialysis with [facility] in [facility] will be transition ing to self dialysis-s he is interested in renal transplant currently using Lantus 8 units at [facility] 100mg bidLisinop ril 20mg dailylabet olol 200mg BID Chronic ki dney disease stage 5 on dialysis 055410457 Z99.2 [place] to [place] [facility] [place] Morbid obesity 317027902 E66.01 40.8 bmiHealthy Weight: 5'3= 107-140 lbs Hypertensive disorder 38 228024 I10 BP Goal: Less than 140/90BP Controlled : yesHealthy Weight: 5'3= 107-140 lbsDiscuss ed: Low sodium balanced diet, moderate exercise at least 3-4 times per week for an average of 40 minutesNex t Visit: 3month(s)Riccardo hillary has refill of her meds from nephrologi [facility] examination 292906057 Z00.01 Pelvic mass 18917677 R19 .00 L adnexal mass seen on pelvic u/s on 04/18/2021L arge cystic mass of the left adnexal region measuring at least 11.8 cm.This is indetermin ate for malignancy and not well characteri zed sonographi aaron.Furt her evaluation is recommende d with either CT or MRI with and withoutcon trast.Will send for MRI Anemia in chronic kidney disease 468294821 D63.1 Chronic constipation 236 872074 K59.09 Takes BisacodylT akes stool softener History of optic neuritis 7210501600 2493384 Z86.69 2020seen opth 2020 [id number] Waldemar La MD [facility] [address] [place] [address] 05/10/2021 09:59:12 05/13/2021 07:13:40 Uncontrolled type 2 diabetes mellitus 267701209 E11.65 HA1C 6.1random accucheck 183the patient is currently not following with anyone for this problem she had been getting meds during ER visits-she had hospitaliz ation at [place] 01/20/2021 found to be in ARF-starte d on dialysissh e presents today to establish care at this centerthe patient now on dialysis with [facility] in [facility] le will be transition ing to self dialysis-s he is interested in renal transplant currently using Lantus 8 units at [facility]ral[facility] 100mg bidLisinop ril 20mg dailylabet olol 200mg BID Anemia in chronic kidney disease 710352331 D63.1 [id number] Waldemar La MD [facility] [address] [place] [address] 07/04/2021 11:05:56 07/05/2021 10:25:01 Allergic rhinitis 80135377 J30.9 otc zyrtec samples Uncontroll ed type 2 diabetes mellitus 246260501 E11.65 Today HA1C 8.1random accucheck 245the patient is currently not following with anyone for this problem she had been getting meds during ER visits-she had hospitaliz ation at [place] 01/20/2021 found to be in ARF-starte d on dialysissh e presented here on 04/18[facility] has transition ed to self dialysis-s he is interested in renal transplant -has consulted at [facility] using Lantus 8 units at [facility] at home 111-160Hyd ralazine 100mg bidLisinop ril 20mg dailylabet olol 200mg BIDShe will see Dr/nephrol ogist today and may have med adjustment Hypertensive disorder 38 811939 I10 BP Goal: Less than 140/90BP Controlled : noHealthy Weight: 5'3= 107-140 lbsDiscuss ed: Low sodium balanced diet, moderate exercise at least 3-4 times per week for an average of 40 minutesNex t Visit: 3month(s)Riccardo [place] has refill of her meds from nephrologi [facility] dney disease stage 5 on dialysis 315940937 Z99.2 [place] to [place] Diabetic p eripheral neuropathy 653095671 E11.40 stable Gastroesop hageal reflux disease 368155542 K21.9 stable for now Morbid obesity 720053911 E66.01 40.8 bmiHealthy Weight: 5'3= 107-140 lbs Depression screening 171 957213 Z13.31 PHQ2-9 mild depression -patients 18 y/o daughter unexpected ly a couple of weeks agoPatient reports having difficulty sleeping Depressive disorder 3549 9007 F32.A 07/04/2021 PHQ2-9 09/18Agrees to start Rx escitalopr am Chronic constipation 236 499319 K59.09 Takes BisacodylT akes stool softener Bereavement 98807913 Z63 .4 recommend psychother apist-seek appointmen t [id number] Waldemar La MD [facility] [address] [place] [address] 08/15/2021 11:09:34 08/16/2021 15:00:04 Acute sinusitis 64407249 J01.90 Morbid obesity 790758992 E66.01 41.2 bmiHealthy Weight: 5'3= 107-140 lbs Bereavement 61689392 Z63 .4 recommend psychother apist-seek appointmen t Depressive disorder 3549 9007 F32.A 08/15/2021 PHQ2-9 wishes not to take Rx escitalopr twan cope on her owndenies suicide ideationre commend seek psychother demetrio/eladio t group Acute conjunctivitis 537 44172 H10.13 [id number] Waldemar La MD [facility] [address] [place] [address] 11/04/2021 11:15:18 11/05/2021 11:07:40 Uncontrolled type 2 diabetes mellitus 209723735 E11.65 Today HA1C 10.1random accucheck4 12BS 150-260 range just with Lantus 8 units-has not been using Lispro insulin for a whilethe patient is currently not following with anyone for this problem she had been getting meds during ER visits-she [place]ion [place] 01/20/2021 found to be in ARF-barbarae d on dialysissh e presented here on 04/18/2021 [facility] with Trey [place] has transition ed to self dialysis-s he is interested in renal transplant -has consulted at [facility] using Lantus 8 units at HS-BS at home 111-160Hyd ralazine 100mg bidLisinop ril 20mg dailylabet olol 300mg BID Allergic rhinitis 541390 04 J30.9 otc zyrtec samples Hypertensive disorder 38 962684 I10 BP Goal: Less than 140/90BP Controlled : noHealthy Weight: 5'3= 107-140 lbsDiscuss ed: Low sodium balanced diet, moderate exercise at least 3-4 times per week for an average of 40 minutesNex t Visit: 3month(s)G ets meds from Nephrologi [facility] dney disease stage 5 on dialysis 945888417 Z99.2 continue to [place] Trey [place] Diabetic p eripheral neuropathy 810974248 E11.40 stable Gastroesop hageal reflux disease 281892550 K21.9 stable for now Morbid obesity 622356949 E66.01 37.8 bmiHealthy Weight: 5'3= 107-140 lbs Bereavement 05758137 Z63 .4 recommend psychother apist-seek appointmen t Depression screening 171 100646 Z13.31 PHQ2-9 wnl now Chronic constipation 236 556698 K59.09 Takes Bisacody akes stool softener Cyst of left ovary 02701 85211 3273550 N83.202 Patient has had cyst since 2018Patien t has been referred to FILM AND VIDEO EDITOR for this problem back in 2018 and again in 2021Transp lant team needs a FILM AND VIDEO EDITOR note clearing for kidney transplant Has not seen FILM AND VIDEO EDITOR yet-appoin tment scheduled for later in the month [id number] Alonzo Reynolds MD [facility] [address] [place] [address] 12/27/2021 10:28:17 12/30/2021 12:57:50 Mass of right breast 3665836938 3430731 N63.10 movable soft mass 1.5cm (2) area below R nipple Body mass index 30+ - obesity 670171230 Z68.36 BMI 36.9Ht 5' 3 Healthy weight range 95-130 Depression screening 171 969576 Z13.31 PHQ2-9 wnl Mental hea lth screening 078505057 Z13.39 HAYLEY-7 negative Administra tion of influenza vaccine 04069087 Z23 [id number] Alonzo Reynolds MD [facility] [address] [address] 01/31/2022 11:30:16 02/03/2022 13:44:44 Family history of malignant neoplasm of breast in first degree relative 992152620 Z80.3 Patient's mother had breast cancer at 40 y/oPATIENT WAS REFERRED TO COUNSELING BUT THE PATIENT DID NOT FOLLOW THRU1 PATIENT WANTS TO GO TO GENETIC COUNSELING Mass of right breast 979 6782733 6130558 N63.10 movable soft mass 1.5cm (2) area below R nipple Body mass index 30+ - obesity 531064279 Z68.36 BMI 36.Ht 5' 3 Healthy weight range 95-130 Depression screening 171 533737 Z13.31 PHQ2-9 mild depression Mental hea lth screening 069913652 Z13.39 HAYLEY-7 negative Hypertensive disorder 38 974387 I10 BP Goal: Less than 140/90BP Controlled : noHealthy Weight: 5'3= 107-140 lbsDiscuss ed: Low sodium balanced diet, moderate exercise at least 3-4 times per week for an average of 40 minutesNex t Visit: 3month(s)[facility] [id number] Waldemar La MD [facility] [address] [place] [address] 03/05/2022 11:39:06 2022 12:49:43 Uncontrolled type 2 diabetes mellitus 361335671 E11.65 Today HA1C 9.6random accucheck 225BS 150-260 range just with Lantus 8 units-has not been using Lispro insulin for a whilethe patient is currently not following with anyone for this problem she had been getting meds during ER visits-she had [place]ion [place] 01/20/2021 found to be in ARF-barbarae d on dialysissh e presented here on 04/18/2021 [facility] with [facility] in [facility] has transition ed to self dialysis-s he is interested in renal transplant -has consulted at [facility] using Lantus 10 units at HS-BS at home 69-160Hydr alazine 100mg bidLisinop ril 20mg dailylabet olol 300mg BID Hypertensive disorder 38 403595 I10 BP Goal: Less than 140/90BP Controlled : yesHealthy Weight: 5'3= 107-140 lbsDiscuss ed: Low sodium balanced diet, moderate exercise at least 3-4 times per week for an average of 40 minutesNex t Visit: 3month(s)[facility] Chronic ki dney disease stage 5 on dialysis 333901119 Z99.2 continue to [place] Body mass index 30+ - obesity 328300064 Z68.36 BMI 36.Ht 5' 3 Healthy weight range 95-130 Allergic rhinitis 083351 04 J30.9 otc zyrtec Diabetic p eripheral neuropathy 602071062 E11.40 stable Gastroesop hageal reflux disease 188512036 K21.9 stable for now Morbid obesity 411269238 E66.01 36 bmiHealthy Weight: 5'3= 107-140 lbs Cyst of left ovary 65388 54082 2906949 N83.202 Patient has had cyst since 2018Patien t has been referred to FILM AND VIDEO EDITOR for this problem back in 2018 and again in 2021Transp lant team needs a FILM AND VIDEO EDITOR note clearing for kidney transplant Has not seen FILM AND VIDEO EDITOR yet-appoin tment scheduled for later in the month Chronic constipation 236 328674 K59.09 Takes BisacodylT akes stool softener Depression screening 171 983019 Z13.31 PHQ2-9 negative Mental [facility] screening 707871341 Z13.39 HAYLEY-7 negative Nasal congestion 8657860 0 R09.81 Acute laryngitis 8083447 J04.0 Exposure to scabies 1626 687970 9842856 Z20.7 Pruritic rash 84886606 L 28.2 [id number] [address] La MD [facility] [address] [place] [address] 06/11/2022 14:01:33 06/12/2022 14:47:11 Body mass index 30+ - obesity 543384944 Z68.36 BMI 36.3Ht 5' 3 Healthy weight range 95-130 Obesity 325943008 E66.9 BMI 36.3Ht 5' 3 Healthy weight range 95-130 Follow-up visit 69840612 9 Z09 42 y/o AAF presents for follow up ER visit on 05/03/2022 to [facility] for severe headache. The patient has [...] to see neurology. History of cerebrovascular accident 607884432 Z86.73 05/03/[address] showed small region of decreased attenuatio n at left occipital lobe suspicious for relatively recent, potentiall y acute infarct which is new since 01/06/2022 . Hypertensive disorder 38 431972 I10 BP Goal: Less than 140/90BP Controlled : yesHealthy Weight: 5'3= 107-140 lbsDiscuss ed: Low sodium balanced diet, moderate exercise at least 3-4 times per week for an average of 40 minutesNex t Visit: 3month(s)[facility] Labetal[facility] stoppedPat ient is taking Lisinopril 20mg dailyPatie nt is taking Hydralazin e 100mg bid Depression screening 171 272806 Z13.31 PHQ2-9 negative [facility] screening 385948256 Z13.39 HAYLEY-7 negative [id number] Waldemar La MD [facility] [address] [place] [address] 10/06/2022 14:16:18 10/07/2022 11:43:28 Hypertensive disorder 68258023 I10 BP Goal: Less than 140/90BP Controlled [...] bid Uncontroll ed type 2 diabetes mellitus 306787477 E11.65 Today HA1C 8random accucheck 225BS 150-260 range just with Lantus 8 units-has not been using Lispro insulin for a whilethe patient is currently not following with anyone for this problem she had been getting meds during ER visits-she had hospitaliz ation [place] 01/20/2021 found to be in ARF-starte d on dialysissh e presented here on 04/18/2021 [facility] with Trey in [facility] arias has transition ed to self dialysis-s he is interested in renal transplant -has consulted at [facility] and is on waiting listcurren tly using Lantus 10 units at HS-BS at home 69-160Pati ent will start using Lispro insulin 5 units bid she has not been using secondary to low sugars and afraidPati ent is taking Labetalol 300mg bidHydrala zine 100mg bidLisinop ril 20mg daily Morbid obesity 546637367 E66.01 33.5 BMIHealthy Weight: 5'3= 107-140 lbs Allergic rhinitis 142447 04 J30.9 otc zyrtec Gastroesop hageal reflux disease 932318965 K21.9 stable for now Obesity 662487337 E66.9 BMI 33.5Ht 5' 3 Healthy weight range 95-130 Chronic ki dney disease stage 5 on dialysis 940875629 Z99.2 continue to [place] Body mass index 30+ - obesity 044941121 Z68.36 BMI 33.5Ht 5' 3 Healthy weight range 95-130 Diabetic p eripheral neuropathy 879212982 E11.40 stable Cyst of left ovary 72495 21248 1916915 N83.202 Patient has had cyst since 2018Patien t has been referred to FILM AND VIDEO EDITOR for this problem back in 2018 and again in 2021Transp lant team needs a FILM AND VIDEO EDITOR note clearing for kidney transplant Has not seen FILM AND VIDEO EDITOR yet-appoin tment scheduled for later Chronic constipation 236 492551 K59.09 Takes BisacodylT akes stool softener Nasal congestion 4094204 0 R09.81 Depression screening 171 828952 Z13.31 PHQ2-9 negative Mental hea lth screening 533165913 Z13.39 HAYLEY-7 negative Requires c ourse of hepatitis B vaccination 311901419 Z28.39 [id number] Alonzo Reynolds MD [facility] [address] [place] [address] 02/03/2023 11:22:33 02/04/2023 11:52:11 Body mass index 30+ - obesity 601331512 Z68.36 BMI 32.1Ht 5' 3 Healthy weight range 95-130 Depression screening 171 199549 Z13.31 PHQ2-9 wnl Mental hea lth screening 351101999 Z13.39 HAYLEY-7 negative Screening for malignant neoplasm of breast 304787668 Z12.31 patients' mother had breast cancer at 40 y/o Administra tion of influenza vaccine 72993040 Z23 [id number] Waldemar La MD [facility] [address] [place] [address] 2023 11:02:07 03/13/2023 15:33:54 Uncontrolled type 2 diabetes mellitus 377349422 E11.65 Today HA1C 6.4random accucheck 178BS 150-260 range just with Lantus 8 units-has not been using Lispro insulin for a whilethe patient is currently not following with anyone for this problem she had been getting meds during ER visits-she had hospitaliz ation [place] 01/20/2021 found to be in ARF-barbarae d on dialysissh e presented here on 04/18/2021 [facility] on dialysis with Davalonso in [facility] arias has transition ed to self dialysis-s he is interested in renal transplant -has consulted at [facility] and is on waiting listcurren tly using Lantus 10 units at HS-BS at home 69-160Pati ent stopped using Lispro insulin 5 units bid she has not been using secondary to low sugars and afraidPati ent is taking Labetalol 300mg bidHydrala zine 100mg bid Hypertensive disorder 38 307634 I10 BP Goal: Less than 140/90BP Controlled : yesHealthy Weight: 5'3= 107-140 lbsDiscuss ed: Low sodium balanced diet, moderate exercise at least 3-4 times per week for an average of 40 minutesNex t Visit: 3month(s)G ets meds from Nephrologi st Patient is taking Hydralazin e 100mg bidPatient is taking Labetalol 300mg bid Vitamin D deficiency 347 95447 E55.9 Allergic rhinitis 568839 04 J30.9 otc zyrtec Morbid obesity 427032356 E66.01 BMI 32.6Health y Weight: 5'3= 107-140 lbs Gastroesop hageal reflux disease 507701976 K21.9 stable for now Obesity 877837037 E66.9 BMI 32.6Ht 5' 3 Healthy weight range 95-130 Chronic ki dney disease stage 5 on dialysis 287889947 Z99.2 continue to [place] Body mass index 30+ - obesity 030233714 Z68.36 BMI 32.6Ht 5' 3 Healthy weight range 95-130 Diabetic p eripheral neuropathy 514438798 E11.40 stable Chronic constipation 236 098686 K59.09 Takes BisacodylT akes stool softener Nasal congestion 5913733 0 R09.81 Requires c ourse of hepatitis B vaccination 442741876 Z28.39 Depression screening 171 113578 Z13.31 PHQ2-9 negative Mental hea lth screening 276886936 Z13.39 HAYLEY-7 negative Administra tion of pneumococcal vaccine 46310131 Z23 Has DM2, CKD, Vaginitis 20100045 N76.0 c/o vaginal itching [id number] BRITTNY GRAVES MD [facility] [address] [place] [address] 09/08/2023 19:36:30 09/09/2023 08:36:21 Obesity 339695382 E66.8 Renewal of prescription 342692286 Z76.0 Diabetic p eripheral neuropathy 790341401 E11.40 Altered appetite 1870926 04 R63.8 Health Concerns Section Related Observation LastModified by Organization Detai ls LastModified Time None Recorded Concern Status LastModified by Organization Details LastModified Time None Recorded Advance Directives Directive N: Payers Insurance Date Sequence Insurance Name Policy Number Policy Zuleta Covered Member ID Zuleta Member ID Guarantor Name 07/09/2018 [facility] (MED[place]ID HMO) [id number] Bakari Smart [id number] Bakari Smart 03/21/2021 SLIDING FEE SCHEDULE - DISCOUNT Bakari Smart 04/30/2021 1 *SELF PAY* Juan Smart 04/30/2021 2 [facility] (MEDICAID HMO) [id number] Bakari Smart [id number] Bakari Smart 11/07/2024 2 [place]SECONDARY PLAN WHEN MEDICARE OR MEDICARE REPLACEMENT PRIMARY) Bakari Smart [id number] Bakari Smart 09/08/2023 [place] [facility] Bakari Smart [id number] Bakari Smart 11/07/2024 1 [place]ARE[place] Bakari Smart [id number] Bakari Smart 05/10/2021 1 [employer]TER [place] OF [place] - DOS ON OR AFTER 2020 (MEDICAID REPLACEMENT - HMO) Bakari Larkinter [id number] Bakari Larkinter 10/29/2017 2 [facility] PRIOR TO 08/23/2020 (MEDICAID REPLACEMENT - HMO) Bakari Larkinter [id number] Bakari Larkinter 04/30/2021 1 [place] Bakari Larkinter [id number] Bakari Larkinter Notes Date Note Type Note Provider Name and Address Organization Details Recorded Time 3 text/html ROS as noted in the HPI 42 y/o AAF presents for follow up ER visit on 05/03/2022 to [facility] for severe headache. The patient has [...] 80mg yet. JOHN Topete Attn: Accounting,[address] [facility], [place], [address], [facility] 06/11/2022 15:17:36 3 text/html [...] [facility] care at this centerShe continues to take:Hydralazine 100mg bidLisinopril 20mg dailylabetolol 300mg BIDFollows with DR Beth Barrett Engineering Technical Writer she is now doing dialysis 3 times [...] Dialysis center advises at least 1 BM dailyRhona has seen Neurology and cardiology. She is on list for transplant voicetracie was pushed back on list.She was in hospital for episode of hypoglycemia-aware that is because she doesnt eat on a regular basis. KRISTY TopeteL.[facility] Attn: Accounting,[address] [facility], [place], [address], [facility] 10/07/2022 10:01:14 3 text/html ROS as noted in the [facility] 42y/o AAF presents for CBE and mammogram order. She has no complaints. She continues to get dyalisis. She wants to get influenza vaccine. She has no contraindications. RICCI Topete Attn: Accounting,[address] [facility], [place], [address], [facility] 02/03/2023 12:30:19 4 text/html Diabetes F/UReported by [...] bidlabetolol 300mg BIDFollows with DR Beth Barrett Engineering Technical Writer she is now doing dialysis 3 times [...] cardiology. She is on list for transplant voicetracie was pushed back on list.She has not had recent labs done. She received influenza vaccine a couple of months ago.Patient agrees to prevnar 20 and Hepatitis B vaccine. She has no contraindications. RICCI TopeteBC Attn: Accounting,[address] [facility], [place], [address], [facility] 04/02/2023 17:51:42 4 text/html ROS as noted [...] things I cannot do MARK Sargent Attn: Accounting,[address] [facility], [place], [address], [facility], [facility] 09/08/2023 20:26:04 OBGyn Episode Ob Episode Information Episode Created Date Number of Fetuses Patient Bloodtype Patient rh Status Prepregnancy Weight lbs Domestic Partner Domestic Partner Phone Father Name Traffic Safety Administrator Status 07/10/19 19 1 CLOSED Fetus Data First Name Last Name Admitted to NICU Weight (g) Sex Living Outcome Pediatric Complications Fetus ID Race Codes Race Delivery Type F [id number] Camilo Calculation Initial Camilo Date Initial Exam [...] Domestic Partner Domestic Partner Phone Father Name Traffic Safety Administrator Status 07/10/19 19 1 CLOSED Fetus Data First Name Last Name Admitted to NICU Weight (g) Sex Living Outcome Pediatric Complications Fetus ID Race Codes Race Delivery Type M 67544 Camilo Calculation Initial Camilo Date Initial Exam [...] Domestic Partner Domestic Partner Phone Father Name Traffic Safety Administrator Status 07/10/19 19 1 CLOSED Fetus Data First Name Last Name Admitted to NICU Weight (g) Sex Living Outcome Pediatric Complications Fetus ID Race Codes Race Delivery Type F [id number] Camilo Calculation Initial Camilo Date Initial Exam [...]
--- OUTSIDE RECORDS SUMMARY | 2025-01-12 02:00 | XMS_ITS | Encounter Summary ---
Author Organization [facility] Healthcare Address [address] [place] [address] Care Team Providers Care Charge Master Analyst Name Role Phone Jessie Dickson NP Primary Care Provider [phone] Almita Rizzo RN Unavailable [phone] Beth Fernandez MD Unavailable [phone] Maday Oviedo MD Unavailable [phone] Tomasz Scott DO Unavailable [phone] Bashir Alston MD Primary Care Provider [phone] No, Physician Primary Care Provider [phone] Meir Nazario MD Unavailable [phone] Kendra Russell RN Unavailable [phone] Unknown, Notinfile Primary Care Provider Unavail able Sulema Lennon NP Primary Care Provider [phone] Reason for Visit * Reason Onset Date Comments READY TO SCHEDULE 04/28/2023 Encounter Details Date Type Department Care Team (Late st Contact Info) Description 04/28/2023 Telephone [facility] Specialty Services [address] [place] [address] Miscellaneous, Not In File READY TO SCHEDULE [...] Legal Sex 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 Gender Identity Not on file Sexual Orientation [...] documented as of this encounter Care Teams Charge Master Analyst Relationship Specialty Start Date End Date Jessie Dickson NP [address] [place] [address] PCP - General Nurse Practitioner 03/05/21 07/07/23 Bashir Alston MD [address] [place] [address] PCP - General Transplant 07/08/23 07/08/23 No, Physician PCP - General 02/16/24 09/12/24 Unknown, Notinfile PCP - General 09/13/24 09/13/24 Sulema Lennon NP [address] [facility] [facility] [address] [place] [address] PCP - General Nurse Practitioner 09/14/24 Almita Rizzo, RN [address] [facility] [address] [place] [address] Outsole Cutter Machine 04/04/21 Beth Fernandez MD [address] [place] [address] Referring Physician Nephrology 04/04/21 Maday Oviedo MD [address] [place] [address] Neurology 09/12/22 Tomasz Scott DO [address] [place] [address] Carbon Paper Coating Machine Setter Cardiology 09/16/22 Meir Nazario MD [address] [place] [address] Obstetrics and Gynecology 04/11/24 Kendra Russell RN [address] [place] [address] [facility] Outpatient Emergency Department 06/24/24 07/21/24 documented as of this encounter
--- OUTSIDE RECORDS SUMMARY | 2025-01-12 02:01 | XMS_ITS | Encounter Summary ---
Author Organization [facility] Address [facility] [place] [address] Care Team Providers Care Machine Brush Maker Name Role Phone Sulema Lennon NP Primary Care Provider Encounter Details Date Type Department Care Team (Late st Contact Info) Description 10/21/2024 Prep for Procedure [facility], [facility] [address] [place] [address] Raulito Valdez MD [facility]. [facility] [address] [place], [place] [id number] Social History Tobacco Use Types Packs/Day Years Used Date Smoking Tobacco: Never Alcohol Use Standard Drinks/Week Comments Not Currently 0 (1 standard drink = 0.6 oz pur e alcohol) [facility] Utilities Answer Date Recorded In the past [address] [facility] [employer], gas, oil, or water [employer] threatened to shut off services in your [...] any time in the past 12 m [facility], were you homeless or living in a half-way (including now)? No 10/11/2024 Comments Unknown Sex [...] st Contact Info) Description 03/22/2025 10:40 AM INSTRUMENT REPAIR TECHNICIAN Office Visit [facility] - [address] [place] [address] Brian Denise MD [address] [place], [place] [address] [address] [place] [address] documented as of this encounter Visit Diagnoses Diagnosis ESRD on hemodialysis (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
--- OUTSIDE RECORDS SUMMARY | 2025-01-12 02:01 | XMS_ITS | Encounter Summary ---
Author Organization [facility] Address [address] [place] [address] Care Team Providers Care Chemical Laboratory Technician Name Role Phone Sulema Lennon COOKING CHEF Primary Care Provider [phone] Reason for Visit * Reason Onset Date Comments Advice 10/31/2024 Nurse Triage - A fter Hours ([id number]) Encounter Details Date Type Department Care Team (Late st Contact Info) Description 10/31/2024 Telephone [place] [address] [facility] [address] [place] [phone] Sulema Lennon, COOKING CHEF [address] [place] [address] Advice (Nurse Triage - After Hours ([id number])/) Social History Tobacco Use Types Packs/Day Years [...] materials from doctor or pharmacy Sometimes 10/30/2024 [facility] Utilities Answer Date Recorded In the past 12 months has [employer] electric, gas, oil, or water company threatened [...] any time in the past 12 m [facility], were you homeless or living in a long term (including now)? No 10/11/2024 Comments Unknown Sex [...] AM CDT Nurse Triage - After Hours ([id number]) Comments Critical Lab Result Regarding: Hospice / Location Unknown / Dr. Mccarthy Regarding: Hospice -[facility] Assessment Notes PC from [facility] lab with critical results. Reports creatinine 6.88. PC to OC Cindy Bruce and advised of results. CALL PCP WITHIN 24 HOURS:CARE ADVICE given per PCP Call - No Triage (Adult) guideline. 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
--- OUTSIDE RECORDS SUMMARY | 2025-01-12 02:01 | XMS_ITS ---
Author Organization [facility] Address [address] [place] [address] Care Team Providers Care Bobtail Driver Name Role Phone Almita Rizzo RN Unavailable [phone] Beth Fernandez MD Unavailable [phone] Maday Oviedo MD Unavailable [phone] Tomasz Scott DO Unavailable [phone] Meir Nazario MD Unavailable [phone] Sulema Lennon NP Primary Care Provider [phone] Transplant Episode Kidney Candidate [facility] ([place], [place]) [facility] waitlisted on 09/10/2021 Marked as Inactive on 11/16/2024 Reason: 04 - Insurance Issues Kidney CoordinatorAlmita Rizzo RN Fax: N/A Email: N/A Scores Score Value Updated Exceptions/Reas ons CPRA Not available EPTS (Calc) 56 01/12/2025 [place] 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 Mellitus - Type II Care Team Name Role Phone Fax Email Almita Rizzo RN Kidney Coordinator [phone] N/A N/A Beth Fernandez MD Referring Physician [phone] N/A Hien Mireles Office Mover [phone] N/A N/A Events Pre-Transplant Referred: 02/07/2021 Evaluation began: 04/04/2021 Committee: 09/09/2021 UNOS qualified: 01/21/2021 Center waitlisted: 09/10/2021 Dialysis History Dialysis History Start End Type Comments Center 10/20/2024 Hemodialysis T/TH/Sat [facility] 04/23/2021 10/20/[address] Beth prakash [facility] 01/21/2021 04/23/2021 Hemodialysis M/W/F [facility] D[facility] Information Center Phone Fax Address [facility] [phone] [place] [id number] [facility] [phone] [address]
--- OUTSIDE RECORDS SUMMARY | 2025-01-12 02:01 | XMS_ITS | Clinical Summary ---
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 Indications: Pain FOR PAIN 5 Active albuterol sulfate HFA 108 (90 Base) MCG/ACT inhalerIndicat ions:Shortness of breath Inhale 2 puffs into the lungs every 4 (four) hours as needed for Wheezing or Shortness of breath (Patient has been out of medication). Indications: Shortness of breath 4 Active lactulose (CHRONULAC) 10 GM/15ML solutionIndica tions:Constipa tion Take 15 mLs by mouth as needed (Constipation). Indications: Constipation Active doxazosin (CARDURA) 2 MG tabletIndicati ons:Hypertensi on Take 1 tablet by mouth daily. Indications: High Blood Pressure 5 026 Active apixaban (ELIQUIS) 5 MG tabletIndicati ons:Deep Vein Thrombosis Take 1 tablet (5 mg total) by mouth 2 (two) times daily. Indications: Blood Clot in a Deep Vein 180 tablet 5 Active amLODIPine (NORVASC) 10 MG tabletIndicati ons:Hypertensi on Take 1 tablet (10 mg total) by mouth nightly. 30 tablet 5 Active losartan (COZAAR) 100 MG tabletIndicati ons:Hypertensi on Take 1 tablet (100 mg total) by mouth daily. 30 tablet 5 Active DAPTOmycin 400 mg in sodium chloride 0.9 % SOLN 100 mLIndications: Peritonitis,Pn eumonia,Sepsis ,Staphylococca l Bacteremia [The details of the medication are not available because there are pending changes by a home health clinician.] 400 mg 5 Active Additional Information Patient taking differently:400 mg Intravenous Twice a week,given after hemodialysis by HD RN via permacath, Indications: Peritonitis, Pneumonia, Sepsis, Staphylococcal Bacteremia, Reported on 10/30/2024 DAPTOmycin 600 mg in sodium chloride 0.9 % SOLN 100 mLIndications: Peritonitis,Pn eumonia,Sepsis ,Staphylococca l Bacteremia [The details of the medication are not available because there are pending changes by a home health clinician.] 600 mg 5 Active Additional Information Patient taking differently:600 mg Intravenous Weekly,given after hemodialysis by HD RN via permacath, Indications: Peritonitis, Pneumonia, Sepsis, Staphylococcal Bacteremia, Reported on 10/30/2024 epoetin emma-epbx (RETACRIT) 2000 UNIT/ML injectionIndic ations:Chronic Kidney Disease Stage 5 Inject 5 mLs (10,000 Units total) into the skin once a week. Indications: Chronic Kidney Disease Stage 5 1 mL 5 Active aspirin EC 81 MG tablet Take [...] EVERY DAY MUST ADMINISTER WITH A MEAL/FOOD 5 Active fluticasone propionate (FLONASE) 50 MCG/ACT nasal spray 2 sprays by Nasal route. 4 Active hydrALAZINE HCl 100 MG Tab Take 1 tablet by mouth 2 (two) times daily. Active labetalol (NORMODYNE) 300 MG tablet Take 1 tablet (300 mg total) by mouth 2 (two) times daily. Active HYDROcodone-ac etaminophen (NORCO) 5-325 MG tablet Take 1 tablet by mouth every 6 (six) hours as needed. 5 Active ibuprofen (MOTRIN) 600 MG tablet Active Insulin Degludec FlexTouch 100 UNIT/ML Solution Pen-injector 10 UNIT (0.1 ML) SUBCUTANEOUSLY DAILY 5 Active Insulin Glargine-yfgn 100 UNIT/ML Solution Pen-injector INJECT 14 UNITS (0.14 ML) SUBCUTANEOUSLY BEDTIME 5 Active EMBECTA PEN NEEDLE HERI 2 GEN 32G X 4 MM Misc INJECT INSULIN ONCE DAILY DIRECTED 5 Active megestrol (MEGACE) 40 MG tablet Take 1 tablet by mouth daily. 4 Active methocarbamol (ROBAXIN) 750 MG Tab take 2 tablets (1500 mg) by mouth three times a day 5 Active rOPINIRole (REQUIP) 0.25 MG tablet 0.25 MG ORALLY EVERY DAY AT BEDTIME Active rOPINIRole (REQUIP) 0.5 MG tablet Take 1 tablet (0.5 mg total) by mouth nightly at bedtime. at bedtime. Active triamcinolone (KENALOG) 0.1 % cream APPLY THIN COAT TO AFFECTED AREA TWICE A DAY Active Active Problems Problem Noted Date Diagnosed [...] (11/23/2024): Added automatically from request for surgery [id number] Bereavement 07/04/2021 Chronic constipation 04/17/2021 Cyst of [...] Overview (11/23/2024): follows with Ivonne Fernandez at [facility] 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 Hypertension 05/31/2018 Blurring of visual image 05/24/2018 Acute conjunctivitis 04/23/2016 Acute laryngitis 04/23/2016 Otitis media 04/23/2016 Diabetic retinopathy associa graeme with type 2 diabetes mellitus 06/12/2015 Visual disturbance 06/12/2015 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 Home [facility] [place] [address] [address] [facility] [place] [address] Urmila Allen RN SN OASIS DISCHARGE/ASSESSMENT 11/23/[address] [facility] Home Care [address] [place] [phone] Urmila Allen RN [facility] 11/23/2024 Travel 11/16/2024 9:00 AM CDT Home Care Visit [address] [place] [address] Jessica Bond OT OT DISCIPLINE DISCHARGE 11/16/2024 Scan [facility] [email or web address] SRVCS Scanned, [facility] 11/16/2024 Telephone [facility] [address] [phone] Brian Denise MD Appointment Request 11/14/2024 9:36 AM CDT - 11/14/2024 11:59 PM CDT Hospital Encounter [facility] [address] [address] Minh Mccarthy MD Discharge Disposition: Home or Self Care (Routine Discharge) 11/14/2024 Travel 11/11/[address] [phone] Minh Mccarthy MD Clarification (Location for Labs) 11/09/2024 1:20 PM CDT Telemedicine [address] [phone] Minh Mccarthy MD Bacteremia (With peritonitis); Chronic Kidney Disease (ESRD on HD); Abnormal Lab Results (CPK elevation) 11/09/[address] [phone] Minh Mccarthy MD Lab Results 11/09/2024 Travel 11/08/2024 Scan [facility] Scanned, [facility] Lab (SCAN) 11/07/2024 Scan [facility] Scanned, [facility] Lab (SCAN) 11/03/2024 2:00 PM CDT Home Care Visit [address] [phone] Jessica Bond, OT OT HOME VISIT 11/03/[address] [phone] Minh Mccarthy MD Medication 11/02/2024 Hospital Follow-up Call [facility] [address] Rosibel Alonzo LPN Follow Up Call (PARISA 10/10-10/29/24) 11/01/2024 12:30 PM CDT Home Care Visit [address] [phone] Jessica Bond, SHIRA OT INITIAL EVALUATION 11/01/[address] [phone] Minh Mccarthy MD Appointment Request; Returned Call; Callback 10/31/[address] [facility] [place] [phone] [address], [facility] [address] [facility] [place] [address] Sulema Lennon NP Advice (Nurse Triage - After Hours ([id number])/) 10/30/2024 2:28 PM CDT - 10/30/2024 11:59 PM [place] [address] Minh Mccarthy MD Discharge Disposition: Home or Self Care (Routine Discharge) 10/30/2024 9:00 AM CDT Home Care Visit [facility] Care [address] [place] [address] [phone] Mariana Glynn, DELFINO SN OASIS START OF CARE 10/30/2024 Home Care Visit [facility] Care [address] [place] [address] [phone] Ivett Willis, DELFINO CASE COMMUNICATION 10/30/2024 Plan [address] [facility] Home Care [address] [place] [phone] 10/30/2024 Orders [place] [address] Minh Mccarthy MD 10/28/2024 9:00 AM CDT Home Care Visit [address] [place] [phone] Vanita Alberts RN LIAISON VISIT 10/26/2024 7:42 PM CDT Anesthesia Event [facility] [address] Favian Moody MD Clements, Kristopher P, TORCH BURNER 10/26/2024 7:40 PM CDT - 10/26/2024 8:49 PM CDT Surgery [facility] [address] Raulito Valdez MD PERMACATH PLACEMENT 10/23/2024 3:00 PM CDT - 10/23/2024 4:09 PM CDT Surgery [place] [address] Raulito Valdez MD TEMPORARY HEMODIALYSIS CATHETER PLACEMENT 10/22/2024 1:09 PM CDT - 10/22/2024 2:39 PM CDT Surgery [place] [address] Lv Perez MD REMOVAL PERITONEAL DIALYSIS CATHETER 10/22/2024 10:55 AM CDT Anesthesia Event [facility] [place] [address] Edinson Claros MD O'Brien, Patrick K, CRNA 10/22/2024 Travel 10/21/2024 Prep for Procedure [facility], [facility] [address] [place] [address] Raulito Valdez MD 10/17/2024 Telephone [facility] Care Management [address] [place] [phone] Keily Weston, oracle ebs architect (Swing bed referral to [facility]/B from [facility] 10/10/2024 6:44 PM CDT - 10/29/2024 3:04 PM CDT Hospital Encounter [facility] [place] [address] Wagner Paz MD,PHD Alka Contreras MD Romick, Jordan K, MD Brubaker, MD Mathieu Duke Nelson E, MD Hand Pain; Wrist Pain Discharge Disposition: Home with Home Health Care from Last 3 Months Immunizations Immunization Administration [...] materials from doctor or pharmacy Never 11/23/2024 [facility] Utilities Answer Date Recorded In the past 12 months has [facility] [employer], oil, or water [employer] threatened to shut off services in your [...] any time in the past 12 m [facility], were you homeless or living in [...] st Contact Info) Description 03/22/2025 10:40 AM 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 - [facility] [address] [facility] [address] [place] [address] Brian Denise MD [address] [place] [address] [address] [place] [address] Health Maintenance Due Date Last Done Comments [...] series) 2024 2023, 10/06/2022, 04/18/2021 COVID-19 Vaccine ( season) 2024 Influenza Adult (#1) 2024 11/27/2023, 02/03/2023, 12/27/2021 Hemoglobin A1C 03/17/2025 09/14/2024, 0410/2024, 02/16/2024, Additional history exists DTaP, Tdap and Td Vaccines (6 - Td or Tdap) 07/10/2027 07/09/2017, 06/18/1984, 08/30/1980, Additional history exists Pneumococcal Vaccine: Pediatrics (0 to 5 Years) and At-Risk Patients (6 to 49 Years) Completed 2023, 04/18/2021, 03/03/2018, Additional history exists Hepatitis C Completed 10/26/2024, 05/28/2018 PHQ-2 (Physician [place]) Completed 11/09/2024 Hepatitis A Vaccines Aged Out [...] Procedure Name Priority Date/Time Associated Diagnosis Comments HC CREATINE KINASE (CPK) TOTAL Routine 11/14/2024 9:40 AM CDT Peritonitis ([facility]) OUTSIDE LAB (SCAN ORDER) 11/08/2024 OUTSIDE LAB (SCAN ORDER) 11/08/2024 OUTSIDE LAB (SCAN ORDER) 11/07/2024 HC COMPREHENSIVE METABOLIC PANEL Routine 10/30/2024 1:00 PM CDT Pericolitis ([facility]) Bacteremia Staphylococcus aureus infection, multiple-resistant (MRSA) Unresolved pneumonia HC CBC AUTO W/AUTO DIFF Routine 10/30/2024 1:00 PM CDT Pericolitis ([facility]) Bacteremia Staphylococcus aureus infection, multiple-resistant (MRSA) Unresolved pneumonia HC CREATINE KINASE (CPK) TOTAL Routine 10/30/2024 1:00 PM CDT Pericolitis ([facility]) Bacteremia Staphylococcus aureus infection, multiple-resistant (MRSA) Unresolved pneumonia HC BASIC METABOLIC PANEL Routine 10/29/2024 6:41 AM CDT HC CBC AUTO W/AUTO DIFF Routine 10/29/2024 6:41 AM CDT POCT GLUCOSE - DOCKED DEVICE Routine 10/29/2024 5:56 AM CDT POCT GLUCOSE - DOCKED DEVICE Routine 10/28/2024 7:46 PM CDT POCT GLUCOSE - DOCKED DEVICE Routine 10/28/2024 3:29 PM CDT HC BASIC METABOLIC PANEL Routine 10/28/2024 1:35 PM CDT HC CBC AUTO W/AUTO DIFF Routine 10/28/2024 1:35 PM CDT POCT GLUCOSE [...] DOCKED DEVICE Routine 10/27/2024 2:44 PM CDT HC HEP B SURFACE AB Routine 10/27/2024 12:20 PM CDT HC HEP CORE AB Routine 10/27/2024 12:20 PM CDT HC HEP B CORE IGM Routine 10/27/2024 12:20 PM CDT POCT GLUCOSE - DOCKED DEVICE Routine 10/27/2024 5:30 AM CDT XR CHEST PORTABLE STAT 10/26/2024 8:3 7 PM CDT POCT GLUCOSE - DOCKED DEVICE Routine 10/26/2024 8:29 PM CDT SURG XR FLUORO CV CATH Routine 10/26/2024 8:16 PM CDT INSRT CENT ZARA ACC DEV >AGE 5 10/26/2024 7:42 PM CDT ESRD HC HEPATITIS PANEL ACUTE Routine 10/26/2024 7:06 PM CDT POCT GLUCOSE - DOCKED DEVICE Routine 10/26/2024 3:38 PM CDT POCT GLUCOSE - DOCKED DEVICE Routine 10/26/2024 11:21 AM CDT HC CBC AUTO W/AUTO DIFF CAMI 10/26/2024 7:15 AM CDT POCT GLUCOSE - DOCKED DEVICE Routine 10/26/2024 5:16 AM CDT HC BASIC METABOLIC PANEL Routine 10/26/2024 5:06 AM CDT POCT GLUCOSE - DOCKED DEVICE Routine 10/25/2024 7:54 PM CDT POCT GLUCOSE - DOCKED DEVICE Routine 10/25/2024 5:11 PM CDT XR CHEST PORTABLE STAT 10/25/2024 1:5 0 PM CDT HC CREATINE KINASE (CPK) TOTAL Routine 10/25/2024 6:47 AM CDT HC BASIC METABOLIC PANEL Routine 10/25/2024 6:47 AM CDT HC CBC AUTO W/AUTO DIFF Routine 10/25/2024 6:47 AM CDT POCT GLUCOSE - DOCKED DEVICE Routine 10/25/2024 5:57 AM CDT XR CHEST PORTABLE Today 10/25/2024 1:1 8 AM CDT POCT GLUCOSE - DOCKED DEVICE Routine 10/24/2024 8:09 PM CDT POCT GLUCOSE - DOCKED DEVICE Routine 10/24/2024 4:00 PM CDT POCT GLUCOSE - DOCKED DEVICE Routine 10/24/2024 11:44 AM CDT HC BASIC METABOLIC PANEL Routine 10/24/2024 6:56 AM CDT HC CBC AUTO W/AUTO DIFF Routine 10/24/2024 6:56 AM CDT HC VANCOMYCIN Routine 10/24/2024 6:56 AM CDT POCT GLUCOSE - DOCKED DEVICE Routine 10/24/2024 5:43 AM CDT XR CHEST PORTABLE Today 10/24/2024 5:4 0 AM CDT TYPE & SCREEN STAT 10/23/2024 10:30 PM CDT HC CBC AUTO W/AUTO DIFF Routine 10/23/2024 10:30 PM CDT POCT GLUCOSE - DOCKED DEVICE Routine 10/23/2024 7:23 PM CDT XR CHEST PORTABLE STAT 10/23/2024 5:3 5 PM CDT POCT GLUCOSE - DOCKED DEVICE Routine 10/23/2024 4:19 PM CDT HC TROPONIN QN STAT 10/23/2024 3:12 PM CDT INSRT CENT ZARA ACC DEV >AGE 5 10/23/2024 3:00 PM CDT ESRD on hemodialysis ([facility]) Case Notes SCHED BY NADER 10/21/2024 LCS Special Needs LOCAL/MAC ECG 12-LEAD Routine 10/23/2024 12:31 PM CDT HC TROPONIN QN STAT 10/23/2024 12:14 PM CDT HC VANCOMYCIN Routine 10/23/2024 12:14 PM CDT HC CBC AUTO W/AUTO DIFF Routine 10/23/2024 12:14 PM CDT HC BASIC METABOLIC PANEL Routine 10/23/2024 12:14 PM [...] CATH Routine 10/22/2024 12:15 PM CDT CULTURE HOSPITAL PHARMACY TECHNICIAN Routine 10/22/2024 11:29 AM CDT HC CULTURE ANAEROBIC Routine 10/22/2024 11:29 AM CDT INSERTION PERITONEAL DIALYSIS CATHETER 10/22/2024 10:54 AM CDT INFECTED CATHETER REMOVE PERM CANNULA/CATHETER 10/22/2024 10:54 AM CDT INFECTED CATHETER HC POTASSIUM STAT 10/22/2024 10:06 AM CDT HC VANCOMYCIN Routine 10/22/2024 10:05 AM CDT HC CBC AUTO W/AUTO DIFF Routine 10/22/2024 10:05 AM CDT HC BASIC METABOLIC PANEL Routine 10/22/2024 10:05 AM CDT HC HCG QL URI NE-QW Routine 10/22/2024 8 :38 AM CDT POCT GLUCOSE - DOCKED DEVICE Routine 10/22/2024 6:37 AM CDT XR CHEST PORTABLE Today 10/22/2024 4:0 9 AM CDT POCT GLUCOSE - DOCKED DEVICE Routine 10/21/2024 8:03 PM CDT POCT GLUCOSE - DOCKED DEVICE Routine 10/21/2024 3:17 PM CDT XR CHEST PORTABLE STAT 10/21/2024 8:1 7 AM CDT POCT GLUCOSE - DOCKED DEVICE Routine 10/21/2024 6:12 AM CDT HC CBC AUTO W/AUTO DIFF Routine 10/21/2024 3:46 AM CDT HC BASIC METABOLIC PANEL Routine 10/21/2024 3:46 AM [...] GAS, VENOUS Routine 10/20/2024 11:40 AM CDT HC BLOOD CULTURE Routine 10/20/2024 11:24 AM CDT HC BLOOD CULTURE Routine 10/20/2024 11:24 AM CDT XR CHEST PORTABLE STAT 10/20/2024 9:1 8 AM CDT HC LACTATE/LACTIC ACID STAT 10/20/2024 9:05 AM CDT POCT GLUCOSE - DOCKED DEVICE Routine 10/20/2024 8:58 AM CDT POCT GLUCOSE - DOCKED DEVICE Routine 10/20/2024 4:29 AM CDT HC BASIC METABOLIC PANEL Routine 10/20/2024 3:08 AM CDT HC CBC AUTO W/AUTO DIFF Routine 10/20/2024 3:08 AM CDT HC TROPONIN QN TIMED 10/20/2024 1:50 AM CDT HC TROPONIN QN TIMED 10/19/2024 10:37 PM CDT ECG 12-LEAD Routine 10/19/2024 9:59 PM CDT POCT GLUCOSE - DOCKED DEVICE Routine 10/19/2024 7:36 PM CDT XR CHEST PORTABLE Routine 10/19/2024 5:1 9 PM CDT POCT GLUCOSE - DOCKED DEVICE Routine 10/19/2024 5:06 PM CDT IR CHEST TUBE INSERTION Today 10/19/2024 4:45 PM CDT HC AMYLASE Routine 10/19/2024 4:33 PM CDT HC LACTATE DEHYDRO (LDH) Routine 10/19/2024 4:33 PM CDT HC PH BODY FLUID Routine 10/19/2024 4:33 PM CDT HC BODY FLUID CULTURE Routine 10/19/2024 4:33 PM CDT HC PROTEIN TOTAL OTH SRC Routine 10/19/2024 4:33 PM CDT HC BODY FLUID CELL COUNT Routine 10/19/2024 4:33 PM CDT US CHEST Today 10/19/2024 3:14 PM CDT TRANSFUSE RED BLOOD CELLS Routine 10/19/2024 1:26 PM CDT POCT GLUCOSE - DOCKED DEVICE Routine 10/19/2024 11:32 AM CDT HC PTT Routine 10/19/2024 11:21 AM CDT HC PROTHROMBIN TIME (PT) Routine 10/19/2024 11:21 AM CDT TYPE & SCREEN STAT 10/19/2024 9:14 AM CDT HC BODY FLUID CELL COUNT Routine 10/19/2024 8:00 AM CDT HC BASIC METABOLIC PANEL Routine 10/19/2024 6:48 AM CDT HC CBC AUTO W/AUTO DIFF Routine 10/19/2024 6:48 AM CDT HC VANCOMYCIN Routine 10/19/2024 6:48 AM CDT POCT GLUCOSE - DOCKED DEVICE Routine 10/19/2024 6:05 AM CDT POCT GLUCOSE - DOCKED DEVICE Routine 10/19/2024 2:57 AM CDT CYTOLOGY GENERIC Routine 10/19/2024 12:00 AM CDT CYTOLOGY GENERIC Routine 10/19/2024 12:00 AM CDT HC CULTURE URINE W/COLONY CT Routine 10/18/2024 10:12 PM CDT HC URINALYSIS AUTO W/O MICRO Routine 10/18/2024 10:12 PM CDT POCT GLUCOSE - DOCKED DEVICE Routine 10/18/2024 7:[address] CHEST+ABD+PEL WO CON STAT 10/18/2024 5:28 PM CDT POCT GLUCOSE - DOCKED DEVICE Routine 10/18/2024 4:12 PM CDT HC THROMBIN TIME PLASMA-90 Routine 10/18/2024 2:54 PM CDT DRVVT CONFIRMATION Routine 10/18/2024 2: 54 PM CDT HEXAGONAL PHASE CONFIRM Routine 10/18/2024 2:54 PM CDT CARDIOLIPIN ANTIBODIES (IGG,IGA,IGM) Routine 10/18/2024 2:54 PM CDT PROTHROMBIN GENE MUTATION Routine 10/18/2024 2:54 PM CDT HC FACTOR X (POONAM-POWER)-90 Routine 10/18/2024 2:54 PM CDT FACTOR V LEIDEN W/ REFLEX Routine 10/18/2024 2:54 PM CDT HC ANTITHROMBIN III ACT-90 Routine 10/18/2024 2:54 PM CDT HC PROTEIN S FREE-90 Routine 10/18/2024 2:54 PM CDT HC PROTEIN C ACTIVITY-90 Routine 10/18/2024 2:54 PM CDT LUPUS ANTICOAGULANT EVAL W/RFX Routine 10/18/2024 2:54 PM CDT HC RHEUMATOID FACTOR QN Routine 10/18/2024 2:54 PM CDT HC BLOOD CULTURE Routine 10/18/2024 2:00 PM CDT HC FERRITIN Routine 10/18/2024 2:00 PM CDT BLOOD SMEAR INTERPRETATION BY Routine 10/18/2024 2:00 PM CDT HC CCP AB-90 Routine 10/18/2024 2:00 PM CDT HC AJYA SCREEN Routine 10/18/2024 2:00 PM CDT HC PHOSPHORUS Routine 10/18/2024 2:00 PM CDT HC VANCOMYCIN Routine 10/18/2024 2:00 PM CDT HC COMPREHENSIVE METABOLIC PANEL Routine 10/18/2024 2:00 PM CDT HC CBC AUTO W/AUTO DIFF Routine 10/18/2024 2:00 PM CDT POCT GLUCOSE - DOCKED DEVICE Routine 10/18/2024 11:24 AM CDT POCT GLUCOSE - DOCKED DEVICE Routine 10/18/2024 9:00 AM CDT PATHOLOGY Routine 10/18/2024 12:00 AM CDT POCT GLUCOSE - DOCKED DEVICE Routine 10/17/2024 7:36 PM CDT POCT GLUCOSE - DOCKED DEVICE Routine 10/17/2024 5:18 PM CDT HC LIVER (HEPATIC) PANEL Routine 10/17/2024 3:17 PM CDT HC AMMONIA Routine 10/17/2024 3:17 PM CDT POCT GLUCOSE - DOCKED DEVICE Routine 10/17/2024 12:29 PM CDT XR HAND LT 3V Today 10/17/2024 12:23 PM CDT USV ZARA DUPLEX UP EXT LT Today 10/17/2024 8:59 AM CDT HC COMPREHENSIVE METABOLIC PANEL Routine 10/17/2024 7:10 AM CDT HC CBC AUTO W/AUTO DIFF Routine 10/17/2024 7:10 AM CDT HC VANCOMYCIN Routine 10/17/2024 7:10 AM CDT POCT GLUCOSE - DOCKED DEVICE Routine 10/17/2024 6:35 AM CDT POCT GLUCOSE - DOCKED DEVICE Routine 10/16/2024 8:51 PM CDT USE ECHOCARDIOGRAM Today 10/16/2024 5: 02 PM CDT POCT GLUCOSE - DOCKED DEVICE Routine 10/16/2024 4:59 PM CDT HC BLOOD CULTURE Routine 10/16/2024 2:59 PM CDT HC BLOOD CULTURE Routine 10/16/2024 1:10 PM CDT HC TROPONIN QN TIMED 10/16/2024 1:10 PM CDT POCT GLUCOSE - DOCKED DEVICE Routine 10/16/2024 11:12 AM CDT ECG 12-LEAD STAT 10/16/2024 8:13 AM CDT HC TROPONIN QN STAT 10/16/2024 8:09 AM CDT HC COMPREHENSIVE METABOLIC PANEL Routine 10/16/2024 8:09 AM CDT HC CBC AUTO W/AUTO DIFF Routine 10/16/2024 8:09 AM CDT POCT GLUCOSE - DOCKED DEVICE Routine 10/16/2024 6:09 AM CDT POCT GLUCOSE - DOCKED DEVICE Routine 10/15/2024 7:36 PM CDT POCT GLUCOSE - DOCKED DEVICE Routine 10/15/2024 3:44 PM CDT TYPE & SCREEN STAT 10/15/2024 12:20 PM CDT HEMOGLOBIN AND HEMATOCRIT Routine 10/15/2024 12:20 PM CDT HC BODY FLUID CELL COUNT Routine 10/15/2024 12:05 PM CDT POCT GLUCOSE - DOCKED DEVICE Routine 10/15/2024 11:39 AM CDT HC COMPREHENSIVE METABOLIC PANEL Routine 10/15/2024 7:16 AM CDT HC CBC AUTO W/AUTO DIFF Routine 10/15/2024 7:16 AM CDT HC VANCOMYCIN Routine 10/15/2024 7:16 AM CDT POCT GLUCOSE - DOCKED DEVICE Routine 10/15/2024 6:24 AM CDT POCT GLUCOSE - DOCKED DEVICE Routine 10/14/2024 7:54 PM CDT POCT GLUCOSE - DOCKED DEVICE Routine 10/14/2024 4:05 PM CDT POCT GLUCOSE - DOCKED DEVICE Routine 10/14/2024 11:06 AM CDT HC VANCOMYCIN Routine 10/14/2024 5:10 AM CDT HEPATITIS B POST-VACCINE ANTIBODY Routine 10/14/2024 5:10 AM CDT HC EIA QL HEPATITIS ABC B AG Routine 10/14/2024 5:10 AM CDT HC FOLIC ACID SERUM Routine 10/14/2024 5 :10 AM CDT HC VITAMIN B12 Routine 10/14/2024 5:10 AM CDT HC TRANSFERRIN Routine 10/14/2024 5:10 AM CDT HC FERRITIN Routine 10/14/2024 5:10 AM CDT HC IRON TOTAL Routine 10/14/2024 5:10 AM CDT POCT GLUCOSE - DOCKED DEVICE Routine 10/14/2024 4:27 AM CDT POCT GLUCOSE - DOCKED DEVICE Routine 10/14/2024 1:14 AM CDT POCT GLUCOSE - DOCKED DEVICE Routine 10/13/2024 7:26 PM CDT HC BODY FLUID CULTURE Routine 10/13/2024 6:17 PM CDT HC BODY FLUID CELL COUNT Routine 10/13/2024 6:17 PM CDT HC PHOSPHORUS Routine 10/13/2024 5:39 PM CDT HC MAGNESIUM Routine 10/13/2024 5:39 PM CDT HC BASIC METABOLIC PANEL STAT 10/13/2024 5:39 PM CDT POCT GLUCOSE - DOCKED DEVICE Routine 10/13/2024 3:59 PM CDT POCT GLUCOSE - DOCKED DEVICE Routine 10/13/2024 3:55 PM CDT POCT GLUCOSE - DOCKED DEVICE Routine 10/13/2024 3:48 PM CDT CULTURE, BLOOD, PCR PANEL Routine 10/13/2024 3:42 PM CDT HC BLOOD CULTURE Routine 10/13/2024 3:42 PM CDT HC BLOOD CULTURE STAT 10/13/2024 3:42 PM CDT MRSA SCREENING Routine 10/13/2024 2:20 PM CDT POCT GLUCOSE - DOCKED DEVICE Routine 10/13/2024 11:29 AM CDT HC PHOSPHORUS Routine 10/13/2024 9:22 AM CDT HC BASIC METABOLIC PANEL Routine 10/13/2024 9:22 AM CDT HC CBC AUTO W/AUTO DIFF Routine 10/13/2024 9:22 AM CDT CTA CHEST [...] XA, UFH TIMED 10/12/2024 8:46 AM CDT HC PROTHROMBIN TIME (PT) Routine 10/12/2024 8:46 AM CDT HC BASIC METABOLIC PANEL Routine 10/12/2024 8:46 AM CDT HC CBC AUTO W/AUTO DIFF Routine 10/12/2024 8:46 AM CDT POCT GLUCOSE - DOCKED DEVICE Routine 10/12/2024 6:03 AM CDT HEPARIN, ANTI XA, UFH TIMED 10/12/2024 1:20 AM CDT from Last 3 Months Results * (ABNORMAL) CK (CPK) (11/14/2024 9:40 AM CDT) Only the most recent of3 resultswithin the time period is included. CPK 293(H) 21 - 215 U/L 11/14/2024 10:51 AM CDT [facility] 11/14/2024 9:40 AM CDT Minh Mccarthy MD LABORATORY Final Result [facility] [address] [id number], * OUTSIDE LAB (SCAN ORDER) (11/08/2024) Only the most recent of3 resultswithin the time period is included. 11/08/2024 [facility] Scanned SCANNING Final Resu lt * (ABNORMAL) COMPREHENSIVE METABOLIC PANEL (10/30/2024 1:00 PM CDT) Only the most recent of5 resultswithin the time period is included. GLUCOSE 116(H) 70 - 99 MG/DL 10/30/2024 3:35 PM CDT [facility] BUN 17 7 - 18 MG/DL 10/30/2024 3:35 PM CDT [facility] CREATININE S/P/B 6.88(HH) 0.55 - 1.02 MG/DL 10/30/2024 3:35 PM CDT [facility] Comment: Critical Result(s) Called at: 15:34:22 on 10/30/2024 by: KAIN QUINN to and read back by:NADER JOHNSON SODIUM S/P/B 138 136 - 145 MMOL/L 10/30/2024 3:35 PM CDT [facility] POTASSIUM S/P/B 3.9 3.5 - 5.1 MMOL/L 10/30/2024 3:35 PM CDT [facility] CHLORIDE S/P/B 100 97 - 115 MMOL/L 10/30/2024 3:35 PM CDT [facility] CO2 33.3(H) 21 - 32 MMOL/L 10/30/2024 3:35 PM CDT [facility] CALCIUM S/P/B 8.9 8.5 - 10.1 MG/DL 10/30/2024 3:35 PM CDT [facility] BILIRUBIN TOTAL S/P/B 0.5 0.2 - 1.2 MG/DL 10/30/2024 3:35 PM CDT [facility] Comment: THIS ASSAY IS NOT RECOMMENDED FOR PATIENTS UNDERGOING TREATMENT WITH ELTROMBOPAG DUE TO THE POTENTIAL FOR FALSELY ELEVATED RESULTS. TOTAL PROTEIN S/P/B 8.0 6.4 - 8.2 G/DL 10/30/2024 3:35 PM CDT [facility] ALBUMIN S/P/B 1.9(L) 3.4 - 5.0 G/DL 10/30/2024 3:35 PM CDT [facility] AST 29 15 - 37 U/L 10/30/2024 3:35 PM CDT [facility] ALT 18 14 - 55 U/L 10/30/2024 3:35 PM CDT [facility] ALKALINE PHOSPHATASE S/P/B 311(H) 50 - 136 U/L 10/30/2024 3:35 PM CDT [facility] ANION GAP 4.7 2 - 10 MMOL/L 10/30/2024 3:35 PM CDT [facility] BUN CREATININE RATIO 2.5(L) 6 - 26 10/30/2024 3:35 PM CDT [facility] A/G RATIO 0.3(L) 1.0 - 2.0 RATIO 10/30/2024 3:35 PM CDT [facility] GFR ESTIMATE 7(L) >90 ML/MIN/1.7 3 M2 10/30/2024 3:35 PM CDT [facility] Comment: NOTE: eGFR is not calculated for patients <18 years of age or gender unknown. This is an estimated GFR calculation using the new CKD EPI creatinine equation without race and so does not require a correction factor for race. This estimated GFR should not be used for calculating drug doses. 10/30/2024 1:00 PM CDT Minh Mccarthy MD LABORATORY Final Result [facility] [address] [place] [address], [place] [phone] * (ABNORMAL) CBC W/DIFF AUTOMATED (10/30/2024 1:00 PM CDT) Only the most recent of18 resultswithin the time period is included. WBC 13.14(H) 4.5 - 11.0 x10'3/uL 10/30/2024 2:40 PM CDT [facility] RBC 3.53(L) 4.20 - 5.40 x10'6/uL 10/30/2024 2:40 PM CDT [facility] HGB 8.9(L) 12.0 - 16.0 G/DL 10/30/2024 2:40 PM CDT [facility] HCT 29.8(L) 38.0 - 48.0 % 10/30/2024 2:40 PM CDT [facility] MCV 84.4 81.0 - 99.0 FL 10/30/2024 2:40 PM CDT [facility] MCH 25.2(L) 27.0 - 31.0 PG 10/30/2024 2:40 PM CDT [facility] MCHC 29.9(L) 32.0 - 36.0 G/DL 10/30/2024 2:40 PM CDT [facility] RDW 15.7(H) 11.5 - 14.5 % 10/30/2024 2:40 PM CDT [facility] PLT 464(H) 130 - 400 x10'3/uL 10/30/2024 2:40 PM CDT [facility] MPV 9.7 9.3 - 12.2 FL 10/30/2024 2:40 PM CDT [facility] DIFFERENTIAL TYPE AUTOMATED DIFFERENTIAL 10/30/2024 2:40 PM CDT [facility] NEUTROPHILS % 66.7 % 10/30/2024 2:40 PM CDT [facility] LYMPHOCYTES % 20.5 % 10/30/2024 2:40 PM CDT [facility] MONOCYTES % 7.3 % 10/30/2024 2:40 PM CDT [facility] EOSINOPHILS 3.5 % 10/30/2024 2:40 PM CDT [facility] BASOPHILS 1.2 % 10/30/2024 2:40 PM CDT [facility] IMMATURE GRANS % 0.8 % 10/31/19 2:40 PM CDT [facility] ABS. NEUTROPHILS 8.75(H) 1.80 - 7.70 x10'3/uL 10/30/2024 2:40 PM CDT [facility] ABS. LYMPHOCYTES 2.70 1.00 - 4.80 x10'3/uL 10/30/2024 2:40 PM CDT [facility] ABS. MONOCYTES 0.96(H) 0.24 - 0.86 x10'3/uL 10/30/2024 2:40 PM CDT [facility] ABS. EOSINOPHILS 0.46(H) 0.04 - 0.36 x10'3/uL 10/30/2024 2:40 PM CDT [facility] ABS. BASOPHILS 0.16(H) 0.01 - 0.08 x10'3/uL 10/30/2024 2:40 PM CDT [facility] ABS. IMMATURE GRANULOCYTES 0.11 0.00 - 0.49 x10'3/uL 10/30/2024 2:40 PM CDT [facility] 10/30/2024 1:00 PM CDT us Minh Mccarthy MD LABORATORY Final Result [facility] [address] [place] [address], * (ABNORMAL) BASIC METABOLIC PANEL (10/29/2024 6:41 AM CDT) Only the most recent of13 resultswithin the time period is included. GLUCOSE 101(H) 70 - 99 MG/DL 10/29/2024 7:36 AM CDT [facility] BUN 25(H) 7 - 18 MG/DL 10/29/2024 7:36 AM CDT [facility] CREATININE S/P/B 8.79(HH) 0.55 - 1.02 MG/DL 10/29/2024 7:36 AM CDT [facility] Comment:NOT CALLED PER [employer]ICY SODIUM S/P/B 137 136 - 145 MMOL/L 10/29/2024 7:36 AM CDT [facility] POTASSIUM S/P/B 3.8 3.5 - 5.1 MMOL/L 10/29/2024 7:36 AM CDT [facility] CHLORIDE S/P/B 101 97 - 115 MMOL/L 10/29/2024 7:36 AM CDT [facility] CO2 31.6 21 - 32 MMOL/L 10/29/2024 7:36 AM CDT [facility] CALCIUM S/P/B 8.4(L) 8.5 - 10.1 MG/DL 10/29/2024 7:36 AM CDT [facility] ANION GAP 4.4 2 - 10 MMOL/L 10/29/2024 7:36 AM CDT [facility] BUN CREATININE RATIO 2.8(L) 6 - 26 10/29/2024 7:36 AM CDT [facility] GFR ESTIMATE 5(L) >90 ML/MIN/1.7 3 M2 10/29/2024 7:36 AM CDT [facility] Comment: NOTE: eGFR is not calculated for patients <18 years of age or gender unknown. This is an estimated GFR calculation using the new CKD EPI creatinine equation without race and so does not require a correction factor for race. This estimated GFR should not be used for calculating drug doses. 10/29/2024 6:41 AM CDT Maria Dumont DO LABORATORY Final Result [facility] [address] [place] [address], [place] [phone] * (ABNORMAL) POCT glucose (10/29/2024 5:56 AM CDT) Only the most recent of73 resultswithin the time period is included. GLUCOSE POC 101(H) 70 - 99 mg/dL 10/29/2024 6:02 AM CDT [facility] 10/29/2024 5:56 AM CDT Jose Murdock MD POCT ORDERABLES - DEVICE Vicki l Result [facility] [address] [place] [address], [place] [phone] * CULTURE, GENITAL W/ GRAM STAIN (10/27/2024 11:50 PM CDT) SPEC DESCRIPTION VAGINAL SPECIMEN 10/28/2024 12:06 AM CDT [facility] SPECIAL REQUESTS NO SPECIAL REQUEST 10/28/2024 12:06 AM CDT [facility] GRAM STAIN RESULT NEGATIVE FOR BACTERIAL VAGINOSIS 10/28/2024 2:25 AM CDT [facility] GRAM STAIN RESULT NO YEAST SEEN 10/28/2024 2:25 AM CDT [facility] CULTURE RESULT LIGHT GROWTH OF NORMAL SANG PRESENT 10/30/2024 11:04 AM CDT [facility] VAGINAL STRUCTURE / Unknown 10/27/2024 11:50 PM CDT 10/28/2024 1:40 AM CDT us Chase Aponte DO MICROBIOLOGY - GENERAL ORDERABLE S Final Result [facility] [address] [place] [address], [place] [phone] * HEPATITIS B SURFACE ANTIBODY (10/27/2024 12:20 PM CDT) HEP B SURFACE AB REACTIVE 10/27/2024 2:08 PM CDT [facility] 10/27/2024 12:2 0 PM CDT us Candis Moreno MD LABORATORY Final Result [facility] [address] [place] [address], [place] [phone] * HEPATITIS B CORE ANTIBODY (10/27/2024 12:20 PM CDT) HEP B CORE TOTAL AB NON-REACTI VE NON-REACTI VE 10/27/2024 2:07 PM CDT [facility] 10/27/2024 12:2 0 PM CDT us Candis Moreno MD LABORATORY Final Result Performing Organization Address City/[facility]/ZIP Co de Phone Number [facility] [address] [place] [address], [place] [phone] * HEPATITIS B CORE AB IGM (10/27/2024 12:20 PM CDT) HEP B CORE IGM NON-REACTI VE NON-REACTI VE 10/27/2024 2:06 PM CDT [facility] 10/27/2024 12:2 0 PM CDT us Candis Moreno MD LABORATORY Final Result [facility] [address] [place] [address], [place] [phone] * XR CHEST PORTABLE (10/26/2024 8:37 PM [...] 8:58 PM Narrative 10/26/2024 9:03 PM CDT [place] [address] Examination: Chest 1 view portable History: Line [...] Procedure Note Demarco Barnes MD - 10/26/2024 [place] [address] Examination: Chest 1 view portable History: Line [...] Please review associated procedure and/or operative report. Raulito Valdez MD IMAGES ONLY Final Result * HEPATITIS PANEL,ACUTE (10/26/2024 7:06 PM CDT) [facility] HEPATITIS B SURFACE AG NON-REACTI VE NON-REACTI VE 10/26/2024 10:08 PM CDT [facility] HEP B CORE IGM NON-REACTI VE NON-REACTI VE 10/26/2024 10:08 PM CDT [facility] HAV IGM NON-REACTI VE NON-REACTI VE 10/26/2024 10:08 PM CDT [facility] HEPATITIS C AB NON-REACTI VE NON-REACTI VE 10/26/2024 10:08 PM CDT [facility] 10/26/2024 7:06 PM CDT Candis Moreno MD LABORATORY Final Result [facility] [address] [place] [address], * Vancomycin Random Level (10/24/2024 6:56 AM CDT) Only the most recent of8 resultswithin the time period is included. Pathologist [facility] [place] VANCOMYCIN RANDOM 17.3 MCG/ML 10/24/2024 7:47 AM CDT [facility] Comment:NO THERAPEUTIC RANGE AVAILABLE LAST DOSE UNKNOWN LAST DOSE 10/24/2024 10:08 AM CDT [facility] 10/24/2024 6:56 AM CDT Amos Cline MD LABORATORY Fin al Result Performing Organization Address City/[facility]/ZIP Co de Phone Number [facility] [address] [place] [address], * TYPE & SCREEN (10/23/2024 10:30 PM CDT) Only the most recent of3 resultswithin the time period is included. ABO/RH B POSITIVE 10/23/2024 11:37 PM CDT [facility] ANTIBODY SCREEN NEGATIVE 10/23/2024 11:37 PM CDT [facility] SAMPLE EXPIRATION 10/26/2024,2 359 10/23/2024 11:37 PM CDT [facility] 10/23/2024 10:3 0 PM CDT Bubba Crowley MD BLOOD BANK TEST ORDERABLES Vicki l Result Performing Organization Address City/[facility] Co de Phone Number [facility] [address] [place] [address], [place] [phone] * (ABNORMAL) TROPONIN, QUANT (10/23/2024 3:12 PM CDT) Only the most recent of6 resultswithin the time period is included. TROPONIN I HIGH SENSITIVITY 70(H) <54 ng/L 10/23/2024 4:16 PM CDT [facility] Comment: HIGH DOSES OF BIOTIN, TROPONIN-SPECIFIC AUTOANTIBODIES, AND ANTIBODY THERAPY CONTAINING HAMA MAY INTERFERE WITH THIS TEST RESULT. CORRELATION TO CLINICAL HISTORY AND PRESENTATION RECOMMENDED. 10/23/2024 3:12 PM CDT Anuja Newman MD LABORATORY Final Result [facility] [address] [place] [address], [place] [phone] * ECG 12 lead (10/23/2024 12:31 PM CDT) Only the most recent of4 resultswithin the time period is included. 10/23/2024 12:[address] 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1980 Requested By: AMOS CLINE Order Number: [id number] Reading MD: Jamar Sharif Measurements Intervals [place] Rate: 69 P: 12 HI: 143 QRS: 7 QRSD: 93 T: 75 QT: 415 QTc: 447 Interpretive Statements SINUS RHYTHM POSSIBLE ANTERIOR MYOCARDIAL INFARCTION [30 ms Q WAVE IN V3/V4, OR R < 0.2 mV IN V4], OF INDETERMINATE AGE Compared to ECG 10/19/2024 21:59:39 Myocardial infarct finding now present T-wave abnormality no longer present Procedure Note Jamar Sharif MD - 10/24/[address] Test Date: 2024-10-23 Pat Name: NIDHI SMART Department: 40 Room: G84725 Gender: Female Pulling Machine Operator: Sq : 1980 Requested By: AMOS CLINE Order Number: [id number] Reading : Jamar Sharif Measurements Intervals [place] Rate: 69 P: 12 HI: 143 QRS: 7 QRSD: 93 T: 75 QT: 415 QTc: 447 Interpretive Statements SINUS RHYTHM POSSIBLE ANTERIOR MYOCARDIAL INFARCTION [30 ms Q WAVE IN V3/V4, OR R < 0.2mV IN V4], OF INDETERMINATE AGE Compared to ECG 10/19/2024 21:59:39 Myocardial infarct finding now present T-wave abnormality no longer present us Amos Cline MD ECG ORDERABLES Fin al Result [facility] * CULTURE HOSPITAL PHARMACY TECHNICIAN (10/22/2024 11:29 AM CDT) SPEC DESCRIPTION CATHETER TIP 10/22/2024 11:31 AM CDT [facility] SPECIAL REQUESTS NO SPECIAL REQUEST 10/22/2024 11:31 AM CDT [facility] CULTURE RESULT NO GROWTH 5 DAYS 10/27/2024 7:25 AM CDT [facility] WOUND CATHETER TIP SUBMITTED SPECIMEN / Unknown 10/22/2024 11:29 AM CDT us Lv Perez MD MICROBIOLOGY - GENERAL OR DERABLES Final Result Performing Organization Address City/[facility]/ZIP Co de Phone Number [facility] [address] [place] [address], [place] [phone] * CULTURE, ANAEROBIC (10/22/2024 11:29 AM CDT) SPEC DESCRIPTION CATHETER TIP 10/22/2024 11:31 AM CDT [facility] SPECIAL REQUESTS NO SPECIAL REQUEST 10/22/2024 11:31 AM CDT [facility] CULTURE RESULT NO ANAEROBES ISOLATED AT 5 DAYS. 10/27/2024 6:55 AM CDT [facility] WOUND CATHETER TIP SUBMITTED SPECIMEN / Unknown 10/22/2024 11:29 AM CDT us Lv Perez MD MICROBIOLOGY - GENERAL OR DERABLES Final Result [facility] [address] [place] [address], * POTASSIUM, SERUM (10/22/2024 10:06 AM CDT) POTASSIUM S/P/B 4.5 3.5 - 5.1 MMOL/L 10/22/2024 10:49 AM CDT [facility] 10/22/2024 10:0 6 AM CDT us Edinson Claros MD LABORATORY Final Resu lt Performing Organization Address City/[facility]/ZIP Co de Phone Number [facility] [address] [place] [address], * TEST URINE (10/22/2024 8:38 AM CDT) URINE HCG TEST NEGATIVE 10/22/2024 9:42 AM CDT [facility] Comment: VERY DILUTE URINE SPECIMENS MAY NOT CONTAIN GERMAN INSTRUCTOR LEVELS OF HCG. IF IS STILL SUSPECTED, A SERUM HCG TEST IS RECOMMENDED. URINE SPECIMEN FROM URETHRA / Unknown 10/22/2024 8:38 AM CDT us Amos Cline MD URINE ORDERABLES Fi nal Result Performing Organization Address City/[facility]/ZIP Co de Phone Number [facility] [address] [place] [address], * MRI KNEE RT WO CON (10/20/2024 [...] 7:34 AM Narrative 10/21/2024 7:40 AM CDT [address] [address] EXAMINATION: MRI RIGHT KNEE WITHOUT CONTRAST EXAM [...] Procedure Note Britton Fuchs MD - 10/21/2024 [address] [place], [place] [address] EXAMINATION: MRI RIGHT KNEE WITHOUT CONTRAST EXAM [...] 7.32 - 7.43 10/20/2024 1:09 PM CDT [facility] PCO2 VENOUS 46.0 MMHG 10/20/2024 1:09 PM CDT [facility] Comment:NO REFERENCE RANGE H BEEN ESTABLISHED PO2 VENOUS 37.0 MM HG 10/20/2024 1:09 PM CDT [facility] Comment:NO REFERENCE RANGE H BEEN ESTABLISHED TOTAL CO2 VENOUS 30.6(H) 22.0 - 26.0 MMOL/L 10/20/2024 1:09 PM CDT [facility] VENOUS BASE EXCESS 3.8 MMOL/L 10/20/2024 1:09 PM CDT [facility] Comment:NO REFERENCE RANGE H BEEN ESTABLISHED O2 SAT VENOUS 71 % 10/20/2024 1:09 PM CDT [facility] Comment:NO REFERENCE RANGE H BEEN ESTABLISHED BICARB VENOUS 29.2(H) 22.0 - 29.0 MMOL/L 10/20/2024 1:09 PM CDT [facility] O2 ADMIN VENOUS 28% 1:07 PM CDT [facility] 10/20/2024 11:4 0 AM CDT us Kathi Pimentel MD LABORATORY Final Res ult [facility] [address] [place] [address], [place] [phone] * CULTURE, BACTERIA, BLOOD (10/20/2024 11:24 AM CDT) Only the most recent of7 resultswithin the time period is included. SPEC DESCRIPTION BLOOD-PEDIA TRIC VOLUME 10/20/2024 11:07 AM CDT [facility] SPECIAL REQUESTS NO SPECIAL REQUEST 10/20/2024 11:07 AM CDT [facility] CULTURE RESULT NO GROWTH 5 DAYS 10/25/2024 2:25 PM CDT [facility] BLOOD SPECIMEN OBTAINED FOR BLOOD CULTURE / Unknown 10/20/2024 11:24 AM CDT 10/20/2024 11:25 AM CDT Chase Aponte DO MICROBIOLOGY - GENERAL ORDERABLE S Final Result [facility] [address] [place] [address], [place] [phone] * LACTIC ACID - SINGLE (10/20/2024 9:05 AM CDT) LACTIC ACID VENOUS 1.2 0.4 - 2.0 MMOL/L 10/20/2024 9:41 AM CDT [facility] 10/20/2024 9:05 AM CDT Chase Aponte DO LABORATORY Final Result Performing Organization Address [facility] Co de Phone Number [facility] [address] [place] [address], [place] [phone] * IR CHEST TUBE INSERTION (10/19/2024 4:45 PM CDT) Anatomical Region Laterality Modality Chest Interventional R adiology 10/19/2024 4:51 PM CDT Impressions 10/19/2024 4:57 PM CDT =====IMPRESSION:===== 1. Left pleural complex multiloculated septated large collection. 2. Procedure note for 12 Mongolian locking pigtail multipurpose percutaneous drainage catheter catheter placement in the left posterior inferior pleural space with ultrasound guidance. 3. 460 mL of slightly turbid orangeish fluid collected and sent for testing. Catheter placed to [facility] for transport and can be placed to suction on return to the floor. 4. Patient likely require lytic administration for further drainage, which can be performed under direction of the cardiothoracic surgical or pulmonology service, as clinically directed. 5. Please call IR if further questions Ordered By: CANDIS MORENO Interpreted By: Geetha Church MD, 10/19/2024 4:51 PM Narrative 10/19/2024 4:57 PM [address] [address] Procedure: IR ultrasound-guided pleural/chest tube drainage Exam [...] from the patient, patient's medical power of commercial litigation attorney. The procedure was discussed including the rationale, alternatives, benefits and risks including but not limited to infection, bleeding, damage to adjacent structures, and failure to place a drain. Timeout was performed. Continuous cardiorespiratory monitoring was performed by the direct supervision of including pulse, blood pressure, and oxygen saturation, under supervision of the interventional radiologist. Total intraprocedure [id number] time with the radiologist was 15 minutes [...] incision was made through which a 5 Mongolian Yueh one-step catheter was advanced under ultrasound guidance into the pleural space. Stylet was removed. Fluid was returned and a wire placed through the Yueh catheter which was removed followed by placement of a Amplatz guidewire. Tract dilatation was performed over the wire followed by advancement of a 12 Mongolian locking pigtail multipurpose percutaneous drainage catheter over the wire. Catheter position was confirmed ultrasound of the pigtail formed and locked. Catheter was secured to skin with 2. 0 Ethilon suture, stay fix. Overlying sterile gauze and Tegaderm was placed. Total of 460 mL of slightly turbid orangeish fluid was collected via vacuum bottle and sent for testing. The catheter was placed to [facility] for transported back to the floor. Salvage Supervisor: Dr. Church No immediate complication Procedure Note Geetha Church MD - 10/19/[address] [address] Procedure: IR ultrasound-guided pleural/chest tube drainage Exam Date/Time: 10/19/2024 4:45 PM Indication: 44 female the line. Left pleural percutaneous catheterdrainage. Complex multiloculated septated pleural collection. Possibleempyema versus a subpulmonic effusion. Currently being treated forbacterial peritonitis Comparison: Ultrasound 10/19/2024. CT chest abdomen pelvis 10/18/2024 andCTA chest 10/13/2024 Procedure and findings: Informed verbal and written consent was obtainedfrom the patient, patient's medical power of commercial litigation attorney. The procedure wasdiscussed including the rationale, alternatives, benefits and risksincluding but not limited to infection, bleeding, damage to adjacentstructures, and failure to place a drain. Timeout was performed. Continuous cardiorespiratory monitoring was performed by the directsupervision of including pulse, blood pressure, and oxygen saturation,under supervision of the interventional radiologist. Total intraprocedure [id number] time with the radiologist was 15minutes Patient [...] incision was made through which a 5 Mongolian Yueh one-stepcatheter was advanced under ultrasound guidance into the pleural space.Stylet was removed. Fluid was returned and a wire placed through the Yuehcatheter which was removed followed by placement of a Amplatz guidewire. Tract dilatation was performed over the wire followed by advancement of a12 Mongolian locking pigtail multipurpose percutaneous drainage catheter overthe wire. Catheter position was confirmed ultrasound of the pigtail formed andlocked. Catheter was secured to skin with 2. 0 Ethilon suture, stay fix.Overlying sterile gauze and Tegaderm was placed. Total of 460 mL of slightly turbid orangeish fluid was collected viavacuum bottle and sent for testing. The catheter was placed to [facility] for transported back to the floor. Salvage Supervisor: Dr. Church No immediate complication =====IMPRESSION:===== 1. Left pleural complex multiloculated septated large collection. 2. Procedure note for 12 Mongolian locking pigtail multipurpose percutaneousdrainage catheter catheter placement in the left posterior inferiorpleural space with ultrasound guidance. 3. 460 mL of slightly turbid orangeish fluid collected and sent fortesting. Catheter placed to [facility] for transport and can be placed [...] PH BODY FLUID (10/19/2024 4:33 PM CDT) SITE PLEURAL FLUID 10/19/2024 4:44 PM CDT [facility] Fluid pH 8.0 10/19/2024 7:35 PM CDT [facility] Comment: The reference range and other method performance specifications have not been established for this assay on body fluids. The test result should be integrated into the clinical context for interpretation and utilized in comparison to blood concentrations of the analyte as appropriate. PLEURAL FLUID SPECIMEN / Unknown 10/19/2024 4:33 PM CDT us Yosef Vera Padilla DO BODY FLUIDS AND STOOLS ORDERABLE S Final Result Performing Organization Address City/[facility]/ZIP Co de Phone Number [facility] [address] [place] [address], [place] [phone] * LDH BODY FLUID (10/19/2024 4:33 PM CDT) LDH (FLUID) 749 UNITS/L 10/20/2024 10:27 AM CDT [facility] Comment: REFERENCE RANGE NOT ESTABLISHED FOR THIS BODY FLUID. INTERPRET RESULTS WITH CAUTION. DUE TO STORAGE/TRANSPORT CONDITIONS OF SPECIMEN PRIOR TO TESTING, THE RESULTS MAY BE FALSELY DECREASED. SITE PLEURAL FLUID 10/19/2024 4:34 PM CDT [facility] PLEURAL FLUID SPECIMEN / Unknown 10/19/2024 4:33 PM CDT us Yosef Padilla DO BODY FLUIDS AND STOOLS ORDERABLE S Final Result Performing Organization Address [facility] Co de Phone Number [facility] [address] [place] [address], [place] [phone] [facility] [address] [place] [address], [place] [phone] [id number] * AMYLASE FLUID (10/19/2024 4:33 PM CDT) AMYLASE (BODY FLUID) 18 UNITS/L 10/20/2024 10:28 AM CDT [facility] Comment:REFERENCE RANGE NOT ESTABLISHED FOR THIS BODY FLUID. SPECIMEN SOURCE PLEURAL FLUID 10/19/2024 4:34 PM CDT [facility] PLEURAL FLUID SPECIMEN / Unknown 10/19/2024 4:33 PM CDT us Candis Moreno MD BODY FLUIDS AND STOOLS ORDERABLE S Final Result [facility] [address] [place] [address], [place] [phone] [facility] [address] [place] [address], [place] [phone] [id number] * PROTEIN TOTAL FLUID (10/19/2024 4:33 PM CDT) PROTEIN (FLUID) 3.4 G/DL 10:28 AM CDT [facility] Comment:REFERENCE RANGE NOT ESTABLISHED FOR THIS BODY FLUID. SITE: PLEURAL FLUID 10/19/2024 4:34 PM CDT [facility] PLEURAL FLUID SPECIMEN / Unknown 10/19/2024 4:33 PM CDT us Yosef Padilla DO BODY FLUIDS AND STOOLS ORDERABLE S Final Result Performing Organization Address [facility] Center/[facility] Co de Phone Number [facility] [address] [place] [address], [place] [phone] [facility] [address] [place] [address], [place] [phone] * CULTURE BODY FLUID W/ GRAM STAIN (10/19/2024 4:33 PM CDT) Only the most recent of2 resultswithin the time period is included. SPEC DESCRIPTION PLEURAL FLUID 10/19/2024 4:34 PM CDT [facility] SPECIAL REQUESTS NO SPECIAL REQUEST 10/19/2024 4:34 PM CDT [facility] GRAM STAIN RESULT MODERATE WHITE BLOOD CELLS SEEN 10/19/2024 6:45 PM CDT [facility] GRAM STAIN RESULT NO ORGANISMS SEEN 10/19/2024 6:45 PM CDT [facility] CULTURE RESULT NO GROWTH 5 DAYS 10/24/2024 10:17 AM CDT [facility] PLEURAL FLUID SPECIMEN / Unknown 10/19/2024 4:33 PM CDT 10/19/2024 4:44 PM CDT us Yosef Padilla DO MICROBIOLOGY - GENERAL ORDERABLE S Final Result [facility] [address] [place] [address], [place] [phone] * CELL COUNT W/ DIFF BODY FLUID (10/19/2024 4:33 PM CDT) Only the most recent of4 resultswithin the time period is included. SOURCE (FLUID) PLEURAL FLUID 025 4:34 PM CDT [facility] VOLUME (FLUID) 1,470.0 mL 10/19/2024 7:36 PM CDT [facility] COLOR (FLUID) JACKIE 10/19/2024 7:36 PM CDT [facility] TURBIDITY EXTREMELY TURBID 10/19/2024 7:36 PM CDT [facility] RBC (FLUID) 14,327 CELLS/UL 10/19/2024 7:36 PM CDT [facility] Comment: The reference range and other method performance specifications have not been established for this assay on body fluids. The test result should be integrated into the clinical context for interpretation and utilized in comparison to blood concentrations of the analyte as appropriate. TOTAL NUCLEATED CELL COUNT 2,489 CELLS/UL 10/19/2024 7:36 PM CDT [facility] Comment: The reference range and other method performance specifications have not been established for this assay on body fluids. The test result should be integrated into the clinical context for interpretation and utilized in comparison to blood concentrations of the analyte as appropriate. SEGS (FLUID) 73 % 10/19/2024 7:36 PM CDT [facility] Comment: The reference range and other method performance specifications have not been established for this assay on body fluids. The test result should be integrated into the clinical context for interpretation and utilized in comparison to blood concentrations of the analyte as appropriate. LYMPHS (FLUID) 4 % 10/19/2024 7:36 PM CDT [facility] Comment: The reference range and other method performance specifications have not been established for this assay on body fluids. The test result should be integrated into the clinical context for interpretation and utilized in comparison to blood concentrations of the analyte as appropriate. OTHER MONONUCLEAR CELLS (FLD) 23 % 10/19/2024 7:36 PM CDT [facility] Comment: THE FOLLOWING MAY INCLUDE [...] FLUIDS AND STOOLS ORDERABLE S Final Result [facility] [address] [place] [address], [place] [phone] * TRANSFUSE RED BLOOD CELLS (10/19/2024 4:28 PM CDT) us Candis Moreno MD NURSING TREATMENT ORDERABLES - [...] 3:04 PM Narrative 10/19/2024 3:30 PM [address]T [address] [address] Procedure: Ultrasound chest Exam Date/Time: 10/19/2024 2:09 [...] a percutaneous chest tube drainage is recommended. Salvage Supervisor: Dr. Church Procedure Note Geetha Church MD - 10/19/[address] [address] Procedure: Ultrasound chest Exam Date/Time: 10/19/2024 2:09 PM Indication: 44 female. Left pleural effusion. Comparison: CT chest abdomen pelvis 10/18/2024 and 10/13/2024. Technique: Ultrasound of the left posterior chest performed.. Findings: Ultrasound of the left posterior chest was performed initiallyas survey for requested thoracentesis. There is however a large complexmulti loculated multiseptated collection for which a percutaneous chesttube drainage is recommended. Salvage Supervisor: Dr. Church =====IMPRESSION:===== 1. Left large complex multiloculated multiseptated fluid collection.. 2. Left pleural percutaneous drainage catheter recommended. Ordered By: YOSEF PADILLA Interpreted By: Geetha Church MD, 10/19/2024 3:04 PM us Yosef Padilla DO ULTRASOUND Final Result * PTT, PARTIAL THROMBOPLASTIN TIME (10/19/2024 11:21 AM CDT) PTT 35.0 25.1 - 36.5 SEC 10/19/2024 11:59 AM CDT [facility] 10/19/2024 11:2 1 AM CDT us Yosef Padilla DO LABORATORY Final Result [facility] [address] [place] [address], [place] [phone] * (ABNORMAL) PROTIME/INR, VENOUS (10/19/2024 11:21 AM CDT) Only the most recent of2 resultswithin the time period is included. Pathologist [facility] [place] PROTIME 19.1(H) 10.2 - 12.9 SEC 10/19/2024 11:59 AM CDT [facility] INR 1.7 10/19/2024 11:59 AM CDT [facility] Comment: Recommended INR Therapeutic Goals: 2.0-3.0 Routine Therapy 2.5-3.5 Mechanical Prosthetic Valves (High Risk) 10/19/2024 11:2 1 AM CDT us Yosef Padilla DO LABORATORY Final Result [facility] [address] [place] [address], [place] [phone] * CYTOLOGY GENERIC (10/19/2024 12:00 AM CDT) Only the most recent of3 resultswithin the time period is included. CYTOLOGY OTHER [facility] Department of Laboratory Medicine [address] [place] [address] , extension [phone] Pathology Report Non-gynecologic Cytology Report Name: NIDHI SMART Specimen #: [id number] Age: 1 1980 (Age: 44) Location: [facility] Sex: F Procedure Date: 10/19/2024 [facility] #: [id number] Date Received: 10/21/2024 Date Reported: 10/25/2024 Provider: [...] interpretation, and sign out were performed at [facility], [address] [place] [address]. Electronically Signed Out GARRY JOHNSON MD [facility] 10/19/2024 10/21/2024 10: 11 AM CDT Comment:PLEURAL FLUID, LEFT us Candis Moreno MD PATHOLOGY/CYTOLOGY ORDERABLES Fi nal Result [facility] [address] [place] [address], [phone] * (ABNORMAL) URINALYSIS (10/18/2024 10:12 PM CDT) SPECIMEN TYPE URINE CLEAN CATCH 10/18/2024 10:13 PM CDT [facility] COLOR (U) LIGHT YELLOW 10/18/2024 10:33 PM CDT [facility] TRANSPARENCY TURBID 10/18/2024 10:33 PM CDT [facility] SPECIFIC GRAVITY (U) 1.019 1.001 - 1.030 10/18/2024 10:33 PM CDT [facility] U PH 7.0 5.0 - 9.0 10/18/2024 10:33 PM CDT [facility] LEUKOCYTES (U) 75(A) NEGATIVE 10/18/2024 10:33 PM CDT [facility] NITRITES NEGATIVE NEGATIVE 10/18/2024 10:33 PM CDT [facility] PROTEIN RANDOM (U) 300(H) <30 MG/DL 10/18/2024 10:33 PM CDT [facility] GLUCOSE (U) 300(A) NORMAL MG/DL 10/18/2024 10:33 PM CDT [facility] KETONES MG/DL (U) NEGATIVE NEGATIVE MG/DL 10/18/2024 10:33 PM CDT [facility] UROBILINOGEN NORMAL NORMAL MG/DL 10/18/2024 10:33 PM CDT [facility] BILIRUBIN (U) NEGATIVE NEGATIVE MG/DL 10/18/2024 10:33 PM CDT [facility] BLOOD (U) 1+(A) NEGATIVE 10/18/2024 10:33 PM CDT [facility] MUCUS RARE /LPF 10/18/2024 10:33 PM CDT [facility] WBC/HPF 24(H) <6 /HPF 10/18/2024 10:33 PM CDT [facility] WBC CLUMPS PRESENT 10/18/2024 10:33 PM CDT [facility] RBC/HPF <1 <6 /HPF 10/18/2024 10:33 PM CDT [facility] BACTERIA (U) RARE(A) NONE /HPF 10/18/2024 10:33 PM CDT [facility] SQUAMOUS EPITHELIALS MANY /HPF 10/18/2024 10:33 PM CDT [facility] URINE SPECIMEN OBTAINED BY CLEAN CATCH PROCEDURE / Unknown 10/18/2024 10:12 PM CDT Candis Moreno MD URINE ORDERABLES Final Result [facility] [address] [place] [address], [place] [phone] * (ABNORMAL) URINE BACTERIA CULTURE (10/18/2024 10:12 PM CDT) SPEC DESCRIPTION URINE CLEAN CATCH 10/19/2024 3:27 AM CDT [facility] SPECIAL REQUESTS NO SPECIAL REQUEST 10/19/2024 3:27 AM CDT [facility] CULTURE RESULT >100,000 COL/ML VANCOMYCIN RESISTANT ENTEROCOCCUS FAECIUM FOLLOW ISOLATION PROTOCOL. (A) 10/23/2024 2:12 PM CDT [facility] CULTURE RESULT VRE CALLED TO AND REPEATED BACK BY AMISHA WALKER RN 10/23/24 AT 1412. DA 10/23/2024 2:12 PM CDT [facility] URINE SPECIMEN OBTAINED BY CLEAN [...] - GENERAL ORDERABL ES Final Result [facility] [address] [place] [address], [place] [phone] * CT CHEST+ABD+PEL WO CON (10/18/2024 5:28 [...] 5:38 PM Narrative 10/18/2024 5:47 PM CDT [facility] [address] [place], [place] [address] EXAMINATION: CT chest/abdomen/pelvis without contrast HISTORY: Shortness [...] identified. Procedure Note Kip Elena, - 10/18/2024 [facility] [address] [place], [place] [address] EXAMINATION: CT chest/abdomen/pelvis without contrast HISTORY: Shortness [...] LUPUS ANTICOAGULANT REPORT(A) 10/21/2024 5:28 AM CDT [facility] IHSAN PATINO Comment: A Lupus Anticoagulant is [...] Detected For additional information, please refer to http://I Had Cancer.Soonr/faq/QGF96r3 (This link is being provided for informational/ educational purposes only.) This interpretation is based on the following test results. PTT (LUPUS ANTICOAGULANT) 60(H) <=40 sec 10/21/2024 5:28 AM CDT [facility] IHSAN PATINO Comment: Test Performed by Edu Wellington, [employer] [facility], [address] [place] [address] Lino Rashid M.D., Ph.D., Director of Laboratories , [facility] [id number] DRVVT SCREEN 74(H) <=45 sec 10/21/2024 5:28 AM CDT [facility] IHSAN PATINO 10/18/2024 2:54 PM CDT Candis Moreno MD LABORATORY Final Result [facility] [address], * FACTOR V LEIDEN W/ REFLEX (10/18/2024 2:54 PM CDT) FACTOR V LEIDEN NEGATIVE 1:46 AM CDT [facility] IHSAN PATINO Comment: FACTOR V LEIDEN (R506Q) VARIANT NOT DETECTED INTERPRETATION REPORT 10/26/2024 1:46 AM CDT [facility] IHSAN PATINO Comment: INTERPRETATION: This individual is negative (normal) for the Factor V Leiden (R506Q) variant in the Factor V gene. Increased risk of thrombophilia can be caused by a variety of genetic and non-genetic factors not screened for by this assay. Laboratory testing supervised and results monitored by Jarvis Pitts, Ph.D., [facility], [facility]. VARIANT ANALYSIS: The Factor V Leiden [...] Health care providers, please contact your local [employer] genetic counselor or call [employer] ([phone]) for assistance with interpretation of these results. This test was developed and its analytical performance characteristics have been determined by [email or web address] [facility]. It has not been cleared or approved by the FDA. This assay has been validated pursuant to the CLIA regulations and is used for clinical purposes. Test performed by [employer] [address] [place] [address] Manager Harbor: Brunilda Fuentes MD,PHD,PEMA Test Reported by [facility], [email or web address] [place], [address] [place], [place] Lino Rashid M.D., Ph.D., Director of Laboratories , CLIA [id number] 10/18/2024 2:54 PM CDT Candis Moreno MD LABORATORY Final Result [facility] [address] [place], [place] , * (ABNORMAL) HEXAGONAL PHASE CONFIRM (10/18/2024 2:54 PM CDT) Pathologist [facility] [place] HEXAGONAL PHASE CONF POSITIVE( A) Negative 10/21/2024 4:54 AM CDT [facility] TRISHKEVIN PATINO Comment: Test Performed by [email or web address], [employer], [address] [place] [address] Lino Rashid M.D., Ph.D., Director of Laboratories , CLIA [id number] 10/18/2024 2:54 PM CDT us Jamari Arthur MD LABORATORY Final Result Performing Organization Address City/[facility]/ZIP Co de Phone Number [facility] [place], [place] , [place] [phone] * DRVVT CONFIRMATION (10/18/2024 2:54 PM CDT) [facility] DRVVT CONFIRMATION Negative Negative 10/21/2024 4:54 AM CDT [facility] YATES-KEVIN PATINO Comment: Test Performed by [email or web address], [employer], [address] [place] [address] Lino Rashid M.D., Ph.D., Director of Laboratories , CLIA [id number] 10/18/2024 2:54 PM CDT us Jamari Arthur MD LABORATORY Final Result [facility] , [place] [phone] * CARDIOLIPIN ANTIBODIES (IGG,IGA,IGM) (10/18/2024 2:54 PM CDT) [facility] CARDIOLIPIN AB IGG <2.0 <20.0 GPL 2024 10:12 PM CDT [facility] IHSAN LLY Comment: U/mL Value Interpretation ----- < 20.0 Antibody not detected > or = 20.0 Antibody detected CARDIOLIPIN AB IGM <2.0 <20.0 MPL 2024 10:12 PM CDT [facility] IHSAN VINCENTY Comment: U/mL Value Interpretation ----- < 20.0 [...] aging. For additional information, please refer to http://education.Soonr/faq/PVE593 (This link is being provided for informational/ educational purposes only.) Test Performed by [employer], [employer] [facility], [address] [place] [address] Lino Rashid M.D., Ph.D., Director of Laboratories , [facility] [id number] CARDIOLIPIN AB IGA <2.0 <20.0 APL 2024 10:12 PM CDT [facility] [employer] IHSAN PATINO Comment: U/mL Value Interpretation ----- < 20.0 Antibody not detected > or = 20.0 Antibody detected 10/18/2024 2:54 PM CDT Cadnis Moreno MD LABORATORY Final Result Performing Organization Address City/[facility]/ZIP Co de Phone Number [facility] [address] [place], [place] , [place] [phone] * RHEUMATOID FACTOR, QUANT (10/18/2024 2:54 PM CDT) Pathologist [facility] [place] RHEUMATOID FACTOR <10 <15 IU/ML 10/18/2024 3:37 PM CDT [facility] 10/18/2024 2:5 4 PM CDT Jamari Arthur MD LABORATORY Final Result Performing Organization Address [facility] Co de Phone Number [facility] [address] [place] [address], [place] [phone] * (ABNORMAL) PROTEIN S ACTIVITY FUNCTIONAL (10/18/2024 2:54 PM CDT) [facility] PROTEIN S FUNCTIONAL 58(L) 60 - 140 % normal 10/20/2024 9:06 PM CDT [facility]CONC[facility]TA BADILLO Comment: Decreased levels of Protein S activity may be found in patients with hereditary deficiency, warfarin therapy, vitamin K deficiency, liver disease, DIC, or recent thrombosis as well as after surgery. In addition, it may be physiologic in . Test Performed by [facility], [facility], [address] [place] [address] Lino Rashid M.D., Ph.D., Director of Laboratories , [place] [id number] 10/18/2024 2:54 PM CDT Candis Moreno MD LABORATORY Final Result Performing Organization Address [facility]/ZIP Co de Phone Number [facility] [address] [place], [place] , [place] [phone] * PROTHROMBIN GENE MUTATION (10/18/2024 2:54 PM CDT) PROTHROMBIN GENE MUTATION NEGATIVE 10/26/2024 1:46 AM CDT [facility] IHSAN PATINO Comment: RESULT: [id number] VARIANT NOT DETECTED INTERPRETATION REPORT 10/26/2024 1:46 AM CDT [facility] IHSAN PATINO Comment: INTERPRETATION: This individual is negative (normal) for the [id number] variant in the Prothrombin/Factor II gene. Increased risk of thrombophilia can be caused by a variety of genetic and non-genetic factors not screened for by this assay. Laboratory testing supervised and results monitored by Jarvis Pitts, Ph.D., [facility], [facility]. The X13527J mutation [[id number]: g.51750V>A (c.*97G>A)] in the Prothrombin/Factor II gene is the second most common inherited risk factor for thrombosis occurring in approximately 2% of Caucasians. Presence of the mutation is associated with an elevation of prothrombin levels to about 30% above normal in heterozygotes and to 70% above normal in homozygotes. Prothrombin (U52649G) mutations are detected by amplification of their [...] Health care providers, please contact your local [employer]' genetic counselor or call [phone] ([phone]) for assistance with interpretation of these results. This test was developed and its analytical performance characteristics have been determined by [email or web address] [facility]. It has not been cleared or approved by the FDA. This assay has been validated pursuant to the CLIA regulations and is used for clinical purposes. Test performed by [employer] [address] [address] [place] [address] Manager [place]: Brunilda Fuentes MD,PHD,PEMA Test Reported by [facility], [facility] [facility], [address] [place], [place] Lino Rashid M.D., Ph.D., Director of Laboratories , CLIA [id number] 10/18/2024 2:54 PM CDT Candis Moreno MD LABORATORY Final Result [employer] , [place] [phone] * Thrombin Time (10/18/2024 2:54 PM CDT) THROMBIN TIME 19 13 - 19 sec 10/21/2024 5:28 AM CDT [facility] YATES-CHANTIL LY Comment: Test Performed by [facility], [employer], [address] [place] [address] Lino Rashid M.D., Ph.D., Director of Laboratories , CLIA [id number] 10/18/2024 2:54 PM CDT Jamari Arthur MD LABORATORY Final Result Performing Organization Address [facility]/ZIP Co de Phone Number [facility] [place] [id number] [place], [place] , [place] [phone] * PROTEIN C, ACTIVITY (10/18/2024 2:54 PM CDT) Pathologist [facility] [place] PROTEIN C FUNCTIONAL 137 70 - 180 % normal 10/20/2024 9:06 PM CDT [facility] YATES-CHANTIL LY Comment: Test Performed by [facility], [employer], [address] [place] [address] Lino Rashid M.D., Ph.D., Director of Laboratories , CLIA [id number] 10/18/2024 2:54 PM CDT Candis Moreno MD LABORATORY Final Result Performing Organization Address City/[facility]/ZIP Co de Phone Number [employer] , [place] [phone] * FACTOR X (10/18/2024 2:54 PM CDT) FACTOR X 114 70 - 150 % Normal 10/21/2024 5:09 AM CDT [facility] SHAR-ADELSOTIL LY Comment: Test Performed by [email or web address], [email or web address] [place], [address] [place] [address] Lino Rashid M.D., Ph.D., Director of Laboratories , CLIA [id number] 10/18/2024 2:54 PM CDT Candis Moreno MD LABORATORY Final Result Performing Organization Address [facility] Co de Phone Number [employer] , [place] [phone] * ANTITHROMBIN III ACTIVITY (10/18/2024 2:54 PM CDT) Pathologist [facility] ANTITHROMBIN III ACTIVITY 89 80 - 135 % normal 10/20/2024 9:06 PM CDT [facility] YATES-ADELSOTIL LY Comment: Test Performed by [email or web address], [email or web address] [place], [address] [place] [address] Lino Rashid M.D., Ph.D., Director of Laboratories , CLIA [id number] 10/18/2024 2:54 PM CDT Candis Moreno MD LABORATORY Final Result Performing Organization Address [facility]/ZIP Co de Phone Number [employer] , [place] [phone] * ANTINUCLEAR ANTIBODY WI RFX (JAYA) (10/18/2024 2:00 PM CDT) JAYA 0.3 10/19/2024 11:50 AM CDT [facility] Comment: NEGATIVE: <0.7 RATIO JAYA PROFILE AND TITER NOT PERFORMED THE JAYA SCREEN TESTS FOR THE FOLLOWING ANTIBODIES BY EIA: SSA1 (RO), SSB1 (LA), PETERS, SCL70, JO1, CENTROMERE, HEDGE TRIMMER HISTONE MUST BE ORDERED SEPARATELY DNA (DS) ANTIBODY 1.7 IU/ML 025 11:50 AM CDT [facility] Comment: NEGATIVE: <10 IU/mL EQUIVOCAL: 10 to 15 IU/mL POSITIVE: >15 IU/mL THIS QUANTITATIVE ASSAY IS CALIBRATED TO THE [employer]'S WO/80 STANDARD. THE LEVEL OF dsDNA AUTOANTIBODY GERERALLY CORRELATES WITH THE LEVEL OF DISEASE ACTIVITY IN SYSTEMIC LUPUS ERYTHMATOSUS 10/18/2024 2:00 PM CDT Jamari Arthur MD LABORATORY Final Result [facility] [address] [place] [address], [id number] * (ABNORMAL) CYCLIC CITRULLINATED PEPTIDE (CCP)ANTIBODY(IGG) (10/18/2024 2:00 PM CDT) CITRULLINE PEPTIDE ANTIBODY 26(H) <20 Units 10/23/2024 11:12 AM CDT [facility] SHARCONCETTA LY Comment: Negative: <20 Weak Positive: 20 - 39 Moderate Positive: 40 - 59 Strong Positive: >59 Test Performed by [email or web address], [facility], [address] [place] [address] Lino Rashid M.D., Ph.D., Director of Laboratories , [place] [id number] 10/18/2024 2:00 PM CDT us Jamari Arthur MD LABORATORY Final Result [employer] EMMA ARCHER [address] [place], [place] , [place] [phone] * BLOOD SMEAR PERIPHERAL INTERP PHYS W/WRIT REPORT (10/18/2024 2:00 PM CDT) SMEAR TO PATHOLOGIST SEE PATHOLOGY REPORT. 10/21/2024 7:15 AM CDT [facility] 10/18/2024 2:00 PM CDT Candis Moreno MD LABORATORY Final Result Performing Organization Address [facility] Co de Phone Number [facility] [address] [place] [address], [place] [phone] * (ABNORMAL) PHOSPHORUS, INORGANIC PHOSPHATE (10/18/2024 2:00 PM CDT) Only the most recent of3 resultswithin the time period is included. PHOSPHORUS 5.8(H) 2.5 - 4.9 MG/DL 10/18/2024 3:02 PM CDT [facility] 10/18/2024 2:00 PM CDT Candis Moreno MD LABORATORY Final Result Performing Organization Address City/[facility]/ZIP Co de Phone Number [facility] [address] [place] [address], [place] [phone] * (ABNORMAL) FERRITIN (10/18/2024 2:00 PM CDT) Only the most recent of2 resultswithin the time period is included. FERRITIN 2,302.9(H) 8.0 - 388.0 NG/ML 10/18/2024 3:41 PM CDT [facility] 10/18/2024 2:00 PM CDT us Candis Moreno MD LABORATORY Final Result [facility] [address] [place] [address], [place] [phone] * Pathology (10/18/2024 12:00 AM CDT) PATHOLOGY [facility] Department of Laboratory Medicine [address] [place] [address] , extension [phone] Pathology Report Peripheral Smear Report Name: NIDHI SMART Specimen #: [id number] Age: 1 1980 (Age: 44) Location: [id number] Sex: F Procedure Date: 10/18/2024 Hospital #: [id number] Date Received: 10/19/2024 Date Reported: 10/20/2024 Provider: [...] case was interpreted and signed out at [facility], [address] [place] [id number]. [facility] 10/18/2024 10/19/2024 10: 10 AM CDT Comment:Peripheral blood us Wagner Paz MD,PHD PATHOLOGY/CYTOLOGY ORDERAB LES Final Result [facility] [address] [place] [address], [place] [phone] [id number] * (ABNORMAL) HEPATIC FUNCTION PANEL (10/17/2024 3:17 PM CDT) TOTAL PROTEIN S/P/B 6.7 6.4 - 8.2 G/DL 10/17/2024 3:52 PM CDT [facility] ALBUMIN S/P/B 1.4(L) 3.4 - 5.0 G/DL 10/17/2024 3:52 PM CDT [facility] BILIRUBIN TOTAL S/P/B 0.4 0.2 - 1.2 MG/DL 10/17/2024 3:52 PM CDT [facility] Comment: THIS ASSAY IS NOT RECOMMENDED FOR PATIENTS UNDERGOING TREATMENT WITH ELTROMBOPAG DUE TO THE POTENTIAL FOR FALSELY ELEVATED RESULTS. BILIRUBIN DIRECT S/P/B <0.1 0.0 - 0.20 MG/DL 10/17/2024 3:52 PM CDT [facility] BILIRUBIN INDIRECT S/P/B NOT CALCULATED 0.0 - 0.9 MG/DL 10/17/2024 3:52 PM CDT [facility] ALKALINE PHOSPHATASE S/P/B 203(H) 50 - 136 U/L 10/17/2024 3:52 PM CDT [facility] AST 12(L) 15 - 37 U/L 10/17/2024 3:52 PM CDT [facility] ALT 22 14 - 55 U/L 10/17/2024 3:52 PM CDT [facility] A/G RATIO 0.3(L) 1.0 - 2.0 RATIO 10/17/2024 3:52 PM CDT [facility] 10/17/2024 3:17 PM CDT us Jamari Arthur MD LABORATORY Final Result Performing Organization Address City/[facility]/ZIP Co de Phone Number [facility] [address] [place] [address], [place] [phone] * (ABNORMAL) AMMONIA (10/17/2024 3:17 PM CDT) AMMONIA 34(H) 11 - 32 UMOL/L 10/17/2024 4:00 PM CDT [facility] 10/17/2024 3:17 PM CDT us Jamari Arthur MD LABORATORY Final Result Performing Organization Address [facility] de Phone Number [facility] [address] [place] [address], [place] [phone] * XR HAND LT 3V (10/17/2024 12:23 [...] 5:26 PM Narrative 10/17/2024 5:31 PM CDT [facility] [address] [place], [place] [address] IMAGING STUDIES: XR HAND LT 3V DATE: [...] Procedure Note Trav Arshad MD - 10/17/[address] [address] IMAGING STUDIES: XR HAND LT 3VDATE: 10/17/2024 12:07 PM HISTORY: pain 44-year-old female. Current inpatient. Diffuse lefthand pain. COMPARISON: Right hand 10/11/2024. [facility] DISCUSSION: Portable AP, oblique, and [...] [facility] Pat.Name: NIDHI SMART Pat.ID: [id number] .Date: 10/17/2024 Refer.MD: Sulema Lennon Exam Time: [...] [facility] Pat.Name: NIDHI SMART Pat.ID: [id number] St.Date: 10/17/2024 Refer.MD: Sulema Lennon Exam Time: 8:30:00 AM Study Type:EMMANUEL VS Venous Duplex Arm Lt Height: 63 in Age: 1 1980,44Y Sex: F Sonogrphr: Lon Soto, RDMS, RVT History / Clinical:hx of rue [...] PM Raulito Valdez M.D. Jamari Arthur MD [facility] Final Result * USE ECHOCARDIOGRAM (10/16/2024 5:02 PM CDT) Anatomical Region Laterality Modality Cardiac Echocardiogram 10/16/2024 4:07 PM CDT Narrative 10/16/2024 5:49 PM CDT Echocardiography Report Pat.Name: NIDHI SMART Pat.ID: [id number] .Date: 10/16/2024 Exam Time: 4:07:00 PM Study Type:ECHO WITH CARDIAC DOPPLER COMP Height: 63 in Weight: 222 lb BSA: 2.02 m2 Age: 1 1980,44Y Sex: F BP: 149/63 Sonogrphr: SS RDCS Pat. Stat.:Inpatient Room: 519 Reason for Study:Gram + bacteremia, r/o veg [...] 38.5 mm Right and Left 0.564 Major Lima 86.1 mm Ventricular Septum IVSd 1.36 cm [...] 10/16/2024 Echocardiography Report Pat.Name: NIDHI SMART Pat.ID: [id number] .Date: 10/16/2024 Exam Time: 4:07:00 PM Study Type:ECHO WITH CARDIAC DOPPLER COMP Height: 63 in Weight: 222 lb BSA: 2.02 m2 Age: 1 1980,44Y Sex: F BP: 149/63 Sonogrphr: SS RDCS Pat. Stat.:Inpatient Room: [facility] Reason for Study:Gram + bacteremia, r/o veg [...] 38.5 mm Right and Left 0.564 Major Lima 86.1 mm Ventricular Septum IVSd 1.36 cm [...] Signature> 10/16/2024 05:49 PM Bubba Suazo M.D. us Chase Aponte DO ECHO Final Result * (ABNORMAL) HEMOGLOBIN AND HEMATOCRIT (10/15/2024 12:20 PM CDT) HGB 7.1(L) 12.0 - 16.0 G/DL 10/15/2024 12:59 PM CDT [facility] HCT 23.1(L) 38.0 - 48.0 % 10/15/2024 12:59 PM CDT [facility] 10/15/2024 12:2 0 PM CDT us Jamari Arthur MD LABORATORY Final Result [facility] [address] [place] [address], [place] [phone] * HEPATITIS B POST-VACCINE ANTIBODY (10/14/2024 5:10 AM CDT) HEP B SURFACE AB 83.57 mIU/mL 10/14/2024 6:34 AM CDT [facility] Comment: REFERENCE RANGE >=12.00 PATIENT DOES HAVE IMMUNITY TO HEPATITIS B VIRUS 10/14/2024 5:10 AM CDT us Kathi Pimentel MD LABORATORY Final Res ult [facility] [address] [place] [address], [place] [phone] * (ABNORMAL) IRON SAT PANEL (IRON,IBC,%SAT) (10/14/2024 5:10 AM CDT) Pathologist [facility] IRON 37(L) 50.0 - 170.0 MCG/DL 10/14/2024 6:26 AM CDT [facility] IRON BINDING CAPACITY 129(L) 250 - 450 MCG/DL 10/14/2024 6:26 AM CDT [facility] IRON SATURATION 29 20 - 55 % 6:26 AM CDT [facility] 10/14/2024 5:10 AM CDT us Candis Moreno MD LABORATORY Final Result [facility] [address] [place] [address], [place] [phone] * (ABNORMAL) VITAMIN B-12 (10/14/2024 5:10 AM CDT) Pathologist [facility] VITAMIN B12 S/P/B 1,874(H) 254 - 1,320 PG/ML 10/14/2024 7:11 AM CDT [facility] 10/14/2024 5:10 AM CDT us Candis Moreno MD LABORATORY Final Result [facility] [address] [place] [address], [place] [phone] * (ABNORMAL) TRANSFERRIN (10/14/2024 5:10 AM CDT) Pathologist [facility] TRANSFERRIN 95(L) 200 - 360 mg/dL 10/14/2024 6:26 AM CDT [facility] 10/14/2024 5:10 AM CDT Candis Moreno MD LABORATORY Final Result Performing Organization Address [facility]/ZIP Co de Phone Number [facility] [address] [place] [address], [place] [phone] * HEPATITIS B SURFACE AG, EIA (10/14/2024 5:10 AM CDT) Pathologist [facility] HEPATITIS B SURFACE AG NON-REACTI VE NON-REACTI VE 10/14/2024 6:44 AM CDT [facility] 10/14/2024 5:10 AM CDT Kathi Pimentel MD LABORATORY Final Res ult [facility] [address] [place] [address], [place] [phone] * FOLIC ACID SERUM (10/14/2024 5:10 AM CDT) [facility] FOLATE 3.2 3.1 - 17.5 NG/ML 10/14/2024 7:11 AM CDT [facility] 10/14/2024 5:10 AM CDT Candis Moreno MD LABORATORY Final Result [facility] [address] [place] [address], * MAGNESIUM (10/13/2024 5:39 PM CDT) [facility] MAGNESIUM 1.9 1.8 - 2.4 MG/DL 10/13/2024 6:18 PM CDT [facility] 10/13/2024 5:39 PM CDT Anuja Newman MD LABORATORY Final Result Performing Organization Address City/[facility]/ZIP Co de Phone Number [facility] [address] [place] [address], [place] [phone] * (ABNORMAL) CULTURE, BLOOD, PCR PANEL (10/13/2024 3:42 PM CDT) [facility] METHICILLIN RESISTANT GENE PCR (BLD) DETECTED(A) NOT DETECTED 10/14/2024 9:42 AM CDT [facility] Comment: Note: Antimicrobial resistance can [...] DETECTED NOT DETECTED 10/14/2024 9:42 AM CDT [facility] ENTEROCUCCUS FAECIUM PCR (BLD) NOT DETECTED NOT DETECTED 10/14/2024 9:42 AM CDT [facility] LISTERIA MONOCYTOGENES PCR (BLD) NOT DETECTED NOT DETECTED 10/14/2024 9:42 AM CDT [facility] STAPH SPECIES PCR (BLD) DETECTED(A) NOT DETECTED 10/14/2024 9:42 AM CDT [facility] Comment: CALLED BLOOD CULTURE PCR RESULT TO AND REPEATED BACK BY LIU CALVIN IN PHARMACY AT [phone] DY STAPH AUREUS PCR (BLD) NOT DETECTED NOT DETECTED 10/14/2024 9:42 AM CDT [facility] STAPHYLOCOCCUS EPIDERMIDIS PCR (BLD) DETECTED(A) NOT DETECTED 10/14/2024 9:42 AM CDT [facility] STAPHYLOCOCCUS LUGDUNENSIS PCR (BLD) NOT DETECTED NOT DETECTED 10/14/2024 9:42 AM CDT [facility] STREPTOCOCCUS PCR (BLD) NOT DETECTED NOT DETECTED 10/14/2024 9:42 AM CDT [facility] STREP AGALACTIAE PCR (BLD) NOT DETECTED NOT DETECTED 10/14/2024 9:42 AM CDT [facility] STREP PNEUMONIAE PCR (BLD) NOT DETECTED NOT DETECTED 10/14/2024 9:42 AM CDT [facility] STREP PYOGENES (GRP A) PCR (BLD) NOT DETECTED NOT DETECTED 10/14/2024 9:42 AM CDT [facility] ACINETOBACTER BAUMANII PCR (BLD) NOT DETECTED NOT DETECTED 10/14/2024 9:42 AM CDT [facility] BACTEROIDES FRAGILIS PCR (BLD) NOT DETECTED NOT DETECTED 10/14/2024 9:42 AM CDT [facility] ENTEROBACTERIACEAE PCR (BLD) NOT DETECTED NOT DETECTED 10/14/2024 9:42 AM CDT [facility] ENTEROBACTER CLOACAE COMP PCR (BLD) NOT DETECTED NOT DETECTED 10/14/2024 9:42 AM CDT [facility] ESCHERICHIA COLI PCR (BLD) NOT DETECTED NOT DETECTED 10/14/2024 9:42 AM CDT [facility] KLEBSIELLA AEROGENES PCR (BLD) NOT DETECTED NOT DETECTED 10/14/2024 9:42 AM CDT [facility] KLEBSIELLA OXYTOCA PCR (BLD) NOT DETECTED NOT DETECTED 10/14/2024 9:42 AM CDT [facility] KLEBSIELLA PNEUMONIAE PCR (BLD) NOT DETECTED NOT DETECTED 10/14/2024 9:42 AM CDT [facility] PROTEUS PCR (BLD) NOT DETECTED NOT DETECTED 10/14/2024 9:42 AM CDT [facility] SALMONELLA PCR (BLD) NOT DETECTED NOT DETECTED 10/14/2024 9:42 AM CDT [facility] SERRATIA MARCESCENS PCR (BLD) NOT DETECTED NOT DETECTED 10/14/2024 9:42 AM CDT [facility] H. INFLUENZAE PCR (BLD) NOT DETECTED NOT DETECTED 10/14/2024 9:42 AM CDT [facility] N. MENINGITIDIS PCR (BLD) NOT DETECTED NOT DETECTED 10/14/2024 9:42 AM CDT [facility] PSEUDOMONAS AERUGINOSA PCR (BLD) NOT DETECTED NOT DETECTED 10/14/2024 9:42 AM CDT [facility] STENOTROPHOMONAS MALTOPHILIA PCR (BLD) NOT DETECTED NOT DETECTED 10/14/2024 9:42 AM CDT [facility] LENORE ALBICANS PCR (BLD) NOT DETECTED NOT DETECTED 10/14/2024 9:42 AM CDT [facility] LENORE AURIS PCR (BLD) NOT DETECTED NOT DETECTED 10/14/2024 9:42 AM CDT [facility] LENORE GLABRATA PCR (BLD) NOT DETECTED NOT DETECTED 10/14/2024 9:42 AM CDT [facility] LENORE KRUSEI PCR (BLD) NOT DETECTED NOT DETECTED 10/14/2024 9:42 AM CDT [facility] LEN[place] PARAPSILOSIS PCR (BLD) NOT DETECTED NOT DETECTED 10/14/2024 9:42 AM CDT [facility] LENORE TROPICALIS PCR (BLD) NOT DETECTED NOT DETECTED 10/14/2024 9:42 AM CDT [facility] CRYPTOCOCCUS NEOFORMANS/GATTII PCR (BLD) NOT DETECTED NOT DETECTED 10/14/2024 9:42 AM CDT [facility] 10/13/2024 3:42 PM CDT Jamari Arthur MD MICROBIOLOGY - GENERAL ORDERA BLES Final Result [facility] [address] [place] [address], [place] [phone] * MRSA SCREENING (10/13/2024 2:20 PM CDT) SPEC DESCRIPTION NASAL 10/13/2024 2:27 PM CDT [facility] SPECIAL REQUESTS NO SPECIAL REQUEST 10/13/2024 2:27 PM CDT [facility] CULTURE RESULT NO METHICILLIN RESISTANT STAPHYLOCOCCUS AUREUS ISOLATED 10/14/2024 12:00 PM CDT [facility] SPECIMEN FROM INTERNAL NOSE / Unknown 10/13/2024 2:20 PM CDT 10/13/2024 4:35 PM CDT Candis Moreno MD MICROBIOLOGY - GENERAL ORDERABLE S Final Result [facility] [address] [place] [address], * CTA CHEST (10/13/2024 8:08 AM CDT) [...] 8:16 AM Narrative 10/13/2024 8:42 AM CDT [facility] [address] [place], [place] [address] IMAGING STUDIES: CTA CHEST DATE: 10/13/2024 7:56 AM HISTORY: pilmonary embolism 44-year-old female. Current inpatient. History includes type 2 diabetes, stage V chronic kidney disease, hypertension, and hyperlipidemia. Patient reportedly on nightly peritoneal dialysis. COMPARISON: No pertinent comparison exam at this institution. Report from single view chest 09/13/2024 at [facility]. DISCUSSION: CTA chest following intravenous administration 80 [...] Procedure Note Trav Arshad MD - 10/13/[address] [address] IMAGING STUDIES: CTA CHESTDATE: 10/13/2024 7:56 AM HISTORY: pilmonary embolism 44-year-old female. Current inpatient.History includes type 2 diabetes, stage V chronic kidney disease,hypertension, and hyperlipidemia. Patient reportedly on nightly peritonealdialysis. COMPARISON: No pertinent comparison exam at this institution. Report fromsingle view chest 09/13/2024 at [facility]. DISCUSSION: CTA chest following intravenous administration 80 [...] 8:46 AM CDT) Only the most recent of2 resultswithin the time period is included. 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
== END 2025-01-11 22:33 | disposition home or self-care (01) ==
PROVIDERS: Emergency Provider Student in an Organized Health Care Education/Training Program; PCP Nurse Practitioner Family
DX: T85.838A Hemorrhage due to other internal prosthetic devices, implants and grafts, initial encounter (principal); E11.22 Type 2 diabetes mellitus with diabetic chronic kidney disease; I12.0 Hypertensive chronic kidney disease with stage 5 chronic kidney disease or end stage renal disease; N18.6 End stage renal disease; Z99.2 Dependence on renal dialysis; Z79.4 Long term (current) use of insulin; K21.9 Gastro-esophageal reflux disease without esophagitis
CPT/HCPCS: 99283; A9270

== ENCOUNTER 2025-01-15 05:03 | Inpatient (IN) | payer MEDICARE, MEDICAID, SELFPAY ==
--- OUTSIDE RECORDS SUMMARY | 2025-01-13 06:46 | XMS_ITS | Continuity of Care Document ---
Author Organization [facility] Address [address] [place] [address] Phone Care Team Providers Care Strategic Sourcing Specialist Name Role Phone Elio Garcia MD Unavailable [...] Diagnoses Date Provider Providers Copied on Encounter [facility], [address] [place] [address], [id number], tel:[phone] [facility] No Information Jose Ballard. [address] [place] [address], [id number], . tel:[phone] [facility], [address] [place] [address], [id number], tel:[phone] [facility] Jose Ballard. [address] [place] [address], [id number], . tel:[phone] Referring Provider: Bernabe Fernandez, [address] [facility] [address] [facility], [place], [address]. tel:[phone] As per patient privacy policy some of the clinical information may not be visible. Family History Family Member Type Diagnosis Age At Onset No Information Payers Payer name Insurance type Covered alliance party ID Authoriza tion(s) Medicare [place] [id number] Social History Type Description Quantity Date Captured Comments Sex Female Smoking Status No Information Gender Identity Female Chief Complaint And Reason For Visit No Information Reason For Referral Reason For Referral No Information Plan Of Treatment Date Type Action Status Future Order: Radiology Order Lo wer Body Flouroscopy ([id number]), Ordered on: Ordered History Of Present Illness Encounter Date Complaint History Of Prese nt Illness No Information Functional Status Date Functional Assessmen t No Information Instructions Date Instruction Additional Infor mation No Information Assessments Type Assessment Date No Information Patient Care Teams Name Effective Dates (start - stop) Status Members No Information
[2025-01-15] VITALS (52 sets, daily range): BP systolic 113–270; BP diastolic 62–146; PULSE 63–87; RESP 13–33; TEMP 0–37.3; O2SAT 95–100; BMI 34.2
--- NOTE | ~2025-01-15 | XR_ITS ---
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 Findings: No acute fracture or malalignment. No significant degenerative changes. Soft tissues unremarkable. Impression: No acute fracture or malalignment. Reviewed, dictated and finalized at location P. MATION SALES MANAGER Impression: No acute fracture or malalignment.
--- NOTE | ~2025-01-15 | US_ITS ---
Ultrasound venous duplex upper extremity,right arm CLINICAL HISTORY: Swelling, rule out DVT . Comparison: None. TECHNIQUE: Grayscale, color, duplex/spectral Doppler sonography. FINDINGS: Right upper extremity internal jugular, subclavian, axillary, brachial, basilic, cephalic veins compressible (where possible) and color Doppler patent with normal phasic flow. No internal echoes. IMPRESSION: 1. No right upper extremity DVT. Reviewed, dictated and finalized at location R. WAY HEAD TENDER
--- NOTE | ~2025-01-15 | XR_ITS ---
XR chest 1V portable 01/16/2025 05:38 Indication: Pulmonary vascular congestion Procedure: AP portable chest Comparison: Comparison to multiple prior studies sequentially, with oldest reviewed study dated 11/08/2024. Findings: Cardiomegaly with persistent mild interstitial edema. Small pleural effusions. No pneumothorax. Central venous catheter tip near the cavoatrial junction. Impression: 1: Cardiomegaly with mild interstitial edema. 2: Small pleural effusions. Reviewed, dictated and finalized at location O. TRIMMER Impression: 1: Cardiomegaly with mild interstitial edema. 2: Small pleural effusions.
--- NOTE | ~2025-01-15 | XR_ITS ---
Examination: XR chest 1V portable Clinical History: SOB Comparison: 12/14/2024 Technique: Portable AP Findings: Left permacath. Cardiomegaly. Increased interstitial markings. Persistent pleural effusions. No acute bony abnormality. IMPRESSION: 1. Interstitial pulmonary edema. 2. Persistent pleural effusions and bibasilar atelectasis. Reviewed, dictated and finalized at location R. LE HEARING OFFICER
--- NOTE | 2025-01-15 05:45 | ECG_ITS ---
Test Date: 2025-01-15 06:39:03 Measurements Intervals [place] Rate: 71 P: 43 [place]: 147 QRS: -10 QRSD: 89 T: 85 QT: 432 QTc: 471 Interpretive Statements SINUS RHYTHM ANTEROSEPTAL MYOCARDIAL INFARCTION , OF INDETERMINATE AGE [40+ ms Q WAVE IN V1-V4] Compared to ECG 12/14/2024 14:50:23 No significant changes Electronically Signed On 01-15-2025 11:07:08 CAUSTIC PREPARER by Evita Whitmore M.D.
[2025-01-15 06:04] LABS: Hematocrit 28.9 % (37.0-47.0); Hemoglobin 8.7 g/dL (12.0-15.0); Immature Granulocyte Percent A 0.6 % (0-0.5); Lymphocytes Absolute Auto 2.29 K/mm3 (0.9-3.2); Mean Corpuscular HGB Conc 30.1 g/dl (32-36); Mean Corpuscular Hemoglobin 25.0 pg (26-34); Mean Corpuscular Volume 83.0 fl (80-100); Nucleated Red Blood Cells Absolute Auto 0.000 K/mm3 (0.0-0.012); Nucleated Red Blood Cells Perc 0.0 % (0.0-0.2); Platelet Count Result 270 k/mm3 (150-375); Red Blood Count 3.48 M/mm3 (4.2-5.4); White Blood Count 8.7 K/mm3 (4.5-10.0)
--- NOTE | 2025-01-15 06:09 | ED_ITS ---
HPI - SOB/Dyspnea General Chief Complaint: Shortness of Breath/Dyspnea Stated Complaint: SOB Time Seen by Provider: 01/15/25 05:42 History of Present Illness HPI Narrative: 44-year-old female with history of end-stage renal disease previously on peritoneal dialysis currently on hemodialysis in transitioning back to PD with a new catheter does place at [facility] recently. Patient currently goes Thursday hemodialysis out of her left upper chest PermCath site. Patient today woke up from sleep feeling very short of breath and grunting. She is not having any pain but feels very dyspneic. Went through dialysis and completed a full session yesterday without any difficulty. Came to the ER today with difficulty breathing through walk in triage. Placed in the room made for resuscitation and evaluation. Severely hypertensive blood pressure to 270/118. Patient denies any cough, fever, chills, chest pain. No extremity swelling noted. Related Data Home Medications ?Medication ?Instructions ?Recorded ?Confirmed ?Last Taken ?Type lactulose 10 gram/15 mL oral 15 ml PO QHS PRN constipa tion 11/02/24 11/30/24 11/29/24 History solution sevelamer HCl 800 mg tablet 1,600 mg PO TID 11/02/24 1 11/29/24 History Allergies Allergy/AdvReac Type Severity Reaction Status Date / Time metronidazole Allergy Intermediate Rash Verified 01/15/25 05:04 omeprazole Allergy Intermediate Rash Verified 01/15/25 05:04 adhesive tape Allergy Mild Itching Verified 01/15/25 05:04 ibuprofen Allergy Unknown Verified 01/15/25 05:04 Review of Systems 2 Review of Systems: As reviewed above in HPI PMFSH Past Medical History Medical History Insulin dependent type 2 diabetes mellitus End-stage renal disease on peritoneal dialysis Obesity (BMI 30-39.9) Erythropoietin deficiency anemia Gastroesophageal reflux Arthritis Right wrist left knee Irritable bowel syndrome Diverticulitis Pneumonia Peripheral neuropathy Hypertension Surgical History Surgical History History of section x3 History of dilation and curettage History of appendectomy History of cholecystectomy History of salpingo-oophorectomy History of tubal ligation Family History Family History Mother Diabetes mellitus Breast cancer Sibling History of blood clots due to blood clot Heart disease Sister has something wrong with her heart Father Prostate carcinoma Hypertension Daughter , 06/08/2021, 19yo Pulmonary embolism due to PE Social History Social History Social History: Surrogate medical decision maker: Robert Smith, daughter. Code status: Full code. Smoking status: Never smoker Second hand tobacco smoke exposure: Yes Alcohol intake: never Substance use: current Substance use type: marijuana Do You Feel Safe in your Home?: Yes Lack of Transportation: No Lack of Food: Often True Current Housing: I Have Housing Concerned About Future Housing: No Difficulty Paying Gas/Electric Bills: No Difficulty Paying for Meds: No Currently Unemployed: No Education: Grade School Difficulty w/ Childcare or Family Care: No Living arrangements: with family Additional living arrangements comments: Lives with family in [place]. 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 Spiritual care concerns: No Agree to blood products: Yes Exam 2 Narrative: GENERAL: Dyspneic and ill-appearing, sitting up in a tripod positioning to try and breathe. HEAD: [Normocephalic, atraumatic.] EYES: [PERRLA and EOMI.] ENT: Nares clear, no rhinorrhea or epistaxis. Mucous membranes moist. NECK: Supple. CHEST: Coarse bibasilar breath sounds, no wheezing or prolonged expiratory phase. Tachypnea. Left chest port is clean dry and intact without any bleeding or crepitus. HEART: [Regular rate and rhythm]. No murmur heard. [Normal peripheral pulses.] ABDOMEN: Soft and nondistended. Peritoneal dialysis port access clean dry and intact without any purulence or tenderness to palpation. No bleeding. EXTREMITIES: Normal range of motion. No extremity edema. SKIN: Warm, dry, no rash. NEURO: [No focal deficits]. Alert and oriented [x3.] PSYCH: [Normal mood and affect.] Course Vital Signs Vital signs: Vital Signs Temperature 37.3 C 01/15/25 05:17 Pulse Rate 76 01/15/25 05:17 Respiratory Rate 20 01/15/25 05:17 Blood Pressure 270/118 H 01/15/25 05:17 Pulse Oximetry 100 01/15/25 05:17 Temperature 37.3 C 01/15/25 05:17 Pulse Rate 72 01/15/25 07:05 Respiratory Rate 20 01/15/25 07:05 Blood Pressure 211/95 H 01/15/25 07:05 Pulse Oximetry 100 01/15/25 07:05 Oxygen Delivery BiPAP 01/15/25 06:06 MDM - SOB/Dyspnea MDM Narrative Medical decision making narrative: 44-year-old female with history of end-stage renal disease previously on peritoneal dialysis currently on hemodialysis in transitioning back to PD with a new catheter does place at [facility] recently. Patient currently goes Thursday hemodialysis out of her left upper chest PermCath site. Patient today woke up from sleep feeling very short of breath and grunting. She is not having any pain but feels very dyspneic. Went through dialysis and completed a full session yesterday without any difficulty. Came to the ER today with difficulty breathing through walk in triage. Placed in the room made for resuscitation and evaluation. Severely hypertensive blood pressure to 270/118. Patient denies any cough, fever, chills, chest pain. No extremity swelling noted. Patient is severely hypertensive and tachypneic, short of breath and visibly dyspneic. Respiratory therapy called for bedside BiPAP given concern for acute pulmonary edema and respiratory failure. She is chronically hypertensive each time she is in the ER almost in the 200 systolic range every visit but has never been this hypertensive. She denies any chest pain, back pain, nausea, vomiting. No cough for fever. No extremity swelling but she does have coarse breath sounds raises suspicion for potential pneumonia versus fluid overload versus pulmonary edema. Cardiac workup ordered this time, BNP ordered, patient given labetalol 20 mg IV push for blood pressure control and BiPAP therapy started at bedside. Patient states she has never been on BiPAP before. Has not missed any dialysis sessions so unclear why she would be fluid overloaded. Patient profoundly hypertensive at bedside requiring 20 mg IV labetalol x2 and she only came down to the 250 systolic range. Initially tolerated BiPAP therapy well for several minutes and then began repeating off the mask as she was having difficulty with it. Did agree to trial of BiPAP with some mild sedation so she was given 5 mg of Valium with great effect and she was breathing much more synchronously with the positive-pressure and feeling much relief. No longer tripoding and able to lay down. Nicardipine drip started to titrate her blood pressure to goal under 220 for about a 20% reduction from initial presentation. Bedside x-ray reviewed showing florid pulmonary edema and fluid overload with pleural effusions bilaterally. Discussed the case with Nephrology Dr. Stacy for emergent dialysis and patient will go upstairs to the ICU to get this done. Dialysis team will be called in after our discussion and housekeeping worker aware. Spoke to the oral health therapist Dr. Ramos. We went over patient's clinical status, fluid overload, and hypertensive emergency currently on nicardipine infusion. Patient was accepted to the ICU at this time. Her EKG is nonischemic and her laboratory studies showed negative troponin and normal electrolytes. This does seem like sympathetic acute crashing pulmonary edema superimposed on volume overload status from chronic hypertension and end-stage renal disease on dialysis. Spoke to the hospitalist and patient was accepted to the ICU. Goal blood pressure achieved currently 211/95 on nicardipine 5 units. 100% on BiPAP no longer tachypneic. Patient made aware of the plan and comfortable with admission. Medical Records Attestation: I reviewed the patient's medical records. Lab Data Attestation: I reviewed the patient's lab results. 01/15/25 05:52 01/15/25 05:52 Labs: Lab Results 01/15/25 01/15/25 Range/Units 05:52 06:59 WBC 8.7 (4.5-10.0) K/mm3 RBC 3.48 L (4.2-5.4) M/mm3 Hgb 8.7 L (12.0-15.0) g/dL Hct 28.9 L (37.0-47.0) % MCV 83.0 (80-100) fl MCH 25.0 L (26-34) pg MCHC 30.1 L (32-36) g/dl RDW 18.8 H (11.5-14.5) % Plt Count 270 (150-375) k/mm3 MPV 9.5 (7.4-10.4) fl Immature Gran % (Auto) 0.6 H (0-0.5) % Neut % (Auto) 58.4 (45.5-73.1) % Lymph % (Auto) 26.3 (18.3-44.2) % Gosper % (Auto) 6.0 (2.6-8.5) % Eos % (Auto) 8.2 H (0-4.4) % Baso % (Auto) 0.5 (0.2-1.2) % Lymph # (Auto) 2.29 (0.9-3.2) K/mm3 Gosper # (Auto) 0.5 (0.1-0.6) K/mm3 Eos # (Auto) 0.7 H (0-0.3) K/mm3 Baso # (Auto) 0.0 (0.0-0.1) K/mm3 Abs Immat Gran (auto) 0.05 H (0.00-0.031) K/mm3 Absolute Neuts (auto) 5.1 (1.3-6.7) K/mm3 Absolute Nucleated RBC 0.000 (0.0-0.012) K/mm3 Nucleated RBC % 0.0 (0.0-0.2) % PT 15.9 H (11.1-14.7) Seconds INR 1.3 APTT 35.7 (22.3-36.8) Seconds Sodium 138 (137-145) mmol/L Potassium 4.0 (3.4-5.0) mmol/L Chloride 101 (98-107) mmol/L Carbon Dioxide 26 (22-30) mmol/L Anion Gap 11 (4-12) mmol/L BUN 24 H D (7-17) mg/dL Creatinine 5.85 H (0.7-1.0) mg/dL Estim Creat Clear Calc Not Reportable Estimated GFR 8 L (59 - ) Glucose 123 H (65-110) mg/dL Calcium 9.7 (8.4-10.2) mg/dL Total Bilirubin 0.6 (0.2-1.3) mg/dL AST 39 H (14-36) U/L ALT 13 (6-35) U/L Alkaline Phosphatase 282 H (38-126) U/L Troponin I < 0.012 (0.000-0.034) ng/mL NT-Pro-B Natriuret Pep > 99696 H (19.9-100) pg/mL Total Protein 8.2 (6.3-8.2) g/dL Albumin 3.9 (3.5-5.1) g/dL Lipase 129 (23-300) U/L Nasal MRSA (PCR) Pending Imaging Data Attestation: I personally reviewed and interpreted this imaging study as follows: My impression: Impressions Chest X-Ray 01/15/25 06:32 IMPRESSION: 1. Interstitial pulmonary edema. 2. Persistent pleural effusions and bibasilar atelectasis. Critical Care Time Critical Care Time Critical Care Time: Yes Total Critical Care Time: 75 Discharge Plan Discharge Clinical Impression: Acute pulmonary edema, Hypertensive emergency, End stage chronic kidney disease, ESRD needing dialysis, Respiratory failure Patient Disposition: Still a Patient Condition: Serious Patient Language: French Prescriptions: No Action lactulose 10 gram/15 mL solution 15 ml PO QHS PRN (Reason: constipation) insulin degludec 100 unit/mL (3 mL) insulin pen 10 unit subcut DAILY Qty: 15 1RF Eliquis 5 mg tablet 5 mg PO BID Qty: 60 5RF sevelamer HCl 800 mg tablet 1,600 mg PO TID Rx Instructions: must administer with a meal/food dextrose [Glutose-15] 40 % Gel 15 g PO PRN PRN (Reason: Hypoglycemia) Qty: 112 0RF labetalol 100 mg Tablet 400 mg PO Q12HR Qty: 240 0RF (DME) pen needle, diabetic [Easy Comfort Pen [place]] 32 gauge x 5/32 needle See Rx Instructions .Route Qty: 50 3RF Rx Instructions: Inject insulin once daily As directed (DME) FreeStyle Alexandro 3 Plus Sensor Device See Rx Instructions .Route Qty: 2 3RF Rx Instructions: Check glucose continuously every 15 days As directed acetaminophen 500 mg tablet 1,000 mg PO TID PRN (Reason: tessie) Qty: 180 1RF pregabalin [Lyrica] 75 mg capsule 75 mg PO DAILY Qty: 90 1RF amlodipine 10 mg tablet 10 mg PO DAILY Qty: 90 1RF doxazosin [Cardura] 2 mg tablet 2 mg PO QHS Qty: 90 1RF losartan 100 mg tablet 100 mg PO DAILY Qty: 90 1RF Follow-up/Referrals: Winter,Sulema A., BREED TO WEAN PRODUCTION TECHNICIAN [Primary Care Provider, Internal Medicine]
[2025-01-15] MEDS: diazePAM INJ (*CRX) 10 MG/2 ML SYRINGE 5 MG IV PUSH (06:26)
[2025-01-15 06:34] LABS: Troponin I < 0.012 ng/mL (0.000-0.034)
[2025-01-15 06:35] LABS: INR 1.3; Prothrombin Time 15.9 Seconds (11.1-14.7)
[2025-01-15 06:36] LABS: Partial Thromboplastin Time 35.7 Seconds (22.3-36.8)
--- OUTSIDE RECORDS SUMMARY | 2025-01-15 06:37 | XMS_ITS | Encounter Summary ---
Author Organization [facility] Address [facility] [place] [address] Care Team Providers Care Telecommunication Operator Name Role Phone Sulema Lennon NP Primary Care Provider [phone] Encounter Details Date Type Department Care Team (Late st Contact Info) Description 10/21/2024 Prep for Procedure [facility], [facility] [address] [id number] Raulito Valdez MD [facility]. [facility] [address] [place], [place] [id number] Social History Tobacco Use Types Packs/Day Years Used Date Smoking Tobacco: Never Alcohol Use Standard Drinks/Week Comments Not Currently 0 (1 standard drink = 0.6 oz pur e alcohol) [facility] Utilities Answer Date Recorded In the past 12 months has [facility] [employer], gas, oil, or water [employer] threatened to shut off services in your [...] any time in the past 12 m [facility], were you homeless or living in a [...] st Contact Info) Description 03/22/2025 10:40 AM PARTS REPRESENTATIVE Office Visit [facility] - [address] [place] [address] Brian Denise MD [address] [place], [place] [address] [place] [address] documented as of this encounter Visit Diagnoses Diagnosis ESRD on hemodialysis ([facility])- Primary End stage renal disease documented in this encounter Additional Health Concerns Infection Onset Date Last Indicated Resolved Time 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
--- OUTSIDE RECORDS SUMMARY | 2025-01-15 06:37 | XMS_ITS ---
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 More than 4 times per year 09/14/2024 Do you belong to any clubs o r organizations such as druze groups, unions, fraternal or athletic groups, or [...] any time in the past [address] [facility], were you homeless or living in a [facility] (including now)? No 09/14/2024 Personal Safety Answer Date Recorded Have you ever been in or are you currently in a harmful physical or emotional relationship or is someone making you feel afraid or unsafe? Denies 10/06/2024 Comments No Sex and Gender Information Value Date Recorded Sex Assigned at Not on file Legal Sex Female 11:50 PM REGULATORY AFFAIRS ANALYST Gender Identity Not on file Sexual Orientation [...] will be ACL positive and Beta- 2 [id number]. In order to improve specificity, the International Congress on Antiphospholipid Antibodies recommends Beta-2 GP1 antibodies of IgG or IgM isotype (> the 99th percentile), obtained twice, at least 12 weeks apart, to support a diagnosis of antiphospholipid syndrome. The cutoff for this assay was developed from data based on the 99th percentile. These results were obtained with the [employer] 2200 System. Beta 2GP1 IgG values [...] factor. These results were obtained with the [employer]lex 2200 System. Beta-2 GP1 IgM values obtained with different manufacturers' assay methods may not be used interchangeably. Current interpretive data was last revised on 2016. Blood 12/23/2024 10:0 5 AM CDT 12/23/2024 10:32 AM CDT Fannie Fountain NP LAB BLOOD ORDERABLES Final Result [facility]IS [facility] Department [place] [address] * PR3 - proteinase 3, Ab (12/23/2024 10:05 AM CDT) Proteinase 3 ab <0.2 <=0.9 Ab Index Comment: Interpretive Data Negative: <1 Ab Index Positive: > or = 1 Ab Index Current interpretive data was last revised on 2016. Blood 12/23/2024 10:0 5 AM CDT 12/23/2024 10:32 AM CDT Fannie Fountain AUTOMATIC BLOCKER LAB BLOOD ORDERABLES Final Result Performing Organization Address [facility] de Phone Number [facility] [place] [address] * MPO - myeloperoxidase antibody (12/23/2024 10:05 AM CDT) Myeloperoxidase ab <0.2 <=0.9 Ab Index Comment: Interpretive Data Negative: <1 Ab Index Positive: > or = 1 Ab Index Current interpretive data was last revised on 2016. Blood 12/23/2024 10:0 5 AM CDT 12/23/2024 10:32 AM CDT Fannie Fountain NP LAB BLOOD ORDERABLES Final Result Performing Organization Address [facility] de Phone Number [facility] [place] [address] * (ABNORMAL) Anti-Neutrophilic Cytoplasmic Antibody (ANCA) with Reflex to MPO and PR3 Abs (0:05 AM CDT) ANCA Positive( A) Negative ANCA Titer 1:1280 titer [facility] ANCA Pattern P-ANCA [facility] Comment:IFA Testing is sugge stive of P-ANCA. Results by antigen specific Immunoassay (MPO & PR3) to follow. Blood 12/23/2024 10:0 5 AM CDT 12/23/2024 10:32 AM CDT Fannie Fountain AUTOMATIC BLOCKER LAB BLOOD ORDERABLES Final Result Performing Organization Address [facility]/ZIP Co de Phone Number [facility] [place] [address] * Antihistone antibodies (12/23/2024 10:05 AM CDT) Pathologist [facility] Antihistone <1.0 U Comment: Value Explanation of Results ------ <1.0 Negative 1.0-1.5 Weak Positive 1.6-2.5 Moderate Positive >2.5 Strong Positive Test Performed at: [facility] [facility] [address] [place] [address] IMAN CASTAÑEDA Blood 12/23/2024 10:0 5 AM CDT 12/23/2024 10:32 AM CDT Fannie Fountain AUTOMATIC BLOCKER LAB BLOOD ORDERABLES Final Result Performing Organization Address [facility] Co de Phone Number [facility] [place] [address] * Uric acid (12/23/2024 10:05 AM CDT) Pathologist [facility] Uric acid 4.2 2.5 - 7.0 mg/dL Blood 12/23/2024 10:0 5 AM CDT 12/23/2024 10:32 AM CDT Fannie Fountain AUTOMATIC BLOCKER LAB BLOOD ORDERABLES Final Result Performing Organization Address [facility] Co de Phone Number [facility] [place] [address] * XR Knee Bilateral Ap Standing (12/23/2024 [...] by: Ric Watts M.D. us Fannie Fountain AUTOMATIC BLOCKER IMG XR PROCEDURES Fin al Result * HLA Antibody Screen by PRA or SAB per Schedule (Class I and Class II) (12/15/2024 10:00 AM CDT) Blood 12/15/2024 10:0 0 AM CDT Narrative [facility] - REGULATORY AFFAIRS ANALYST Sample received in lab. Single Antigen Antibody [...] and validated by the [facility] HLA laboratory based on an FDA-approved IVD kit (CleverSetcreen Single-Antigen, [employer], [place], [place]). All patient serum samples are pretreated with EDTA before the screen to prevent complement interference. Additional serum treatments, such as adsorption and DTT treatment, may be performed as indicated. Interpretive comments: Low risk: MFI [id number]. Moderate risk: MFI [id number]. Increased risk: MFI >/= 5000. The presence [...] antigens to avoid. Testing performed at the [facility], [address] [place] [address], 5th floor, [place], [address]. IA # [id number]. Amber Berry, Ph.D., Lining Parts Sewer, HLA Laboratory Jonathan Brennan M.D., Ph.D., Cardiopulmonary Supervisor, HLA Laboratory Rehana Alarcon, Ph.D., CLIA Cardiopulmonary Supervisor, [facility] Current methodology and interpretive [...] LAB BLOOD ORDERABLES Final Re sult DENNIS [address] [facility] Department of Laboratories [place], [place] [id number] * (ABNORMAL) Hemoglobin A1c (09/14/2024 5:21 AM CDT) Hgb A1C 6.2(H) 4.0 - 5.6 % Estimated Average Glucose 131 mg/dL DENNIS Comment: The ADA recommends reporting an estimated Average Glucose (eAG) with all Hemoglobin A1c results using the equation derived from a study of 507 normal and diabetic adults. Minority populations were underrepresented and children were not included. (Diabetes Care 31:4106-6288, 2008). The eAG is not equivalent to a fasting glucose. Blood 09/14/2024 5:21 AM CDT 09/14/2024 5:36 AM CDT us Jonnathan Mojica DO LAB BLOOD ORDERABLES Vicki lovelace Result DENNIS [address] [facility] Department [place] [address] * Lipid panel (06/21/2024 7:20 PM CDT) [...] 112 <=149 mg/dL DENN[facility] Comment: Interpretive Data Ages < or = [...] 56 >=40 mg/dL DENNIS [facility] Comment: Interpretive Data Ages < or = [...] on 2017. LDL, calculated 62 <=129 mg/dL [facility] Comment: Interpretive Data Ages < or = [...] on 2023. Non-HDL Cholesterol 82 mg/dL [facility] Comment: Interpretive Data Ages < or [...] revised on 2017. Chol/HDL ratio 2 [facility] Blood 06/21/2024 7:20 PM CDT 06/21/2024 7:40 PM CDT Narrative [facility] - 06/22/2024 8:42 AM CDT Reflex us Brandan Orr MD LAB BLOOD ORDERABLES Vicki l Result [facility] [place] [address] * Hepatitis C antibody Blood (02/16/2024 11:34 AM REGULATORY AFFAIRS ANALYST) Hep C Ab Nonreactive Nonreactive Comment:Antibodies to HCV no t detected. Does NOT exclude the possibility of recent exposure to HCV. Current interpretive data was last revised on 21 Blood 02/16/2024 11:3 4 AM REGULATORY AFFAIRS ANALYST 02/16/2024 11:45 AM REGULATORY AFFAIRS ANALYST us Tonya Hammonds MD LAB MICROBIOLOGY - GENERAL ORDERABLES Final Result DENN[facility] [place] [address] * Colonoscopy (07/21/2023 10:23 AM CDT) Anatomical [...] The scope was passed under direct vision.The [id number] Colonoscope was introducedthrough the anus and advanced to the the cecum, identifiedby appendiceal orifice and ileocecal valve. The colonoscopy was performed without difficulty. The patient tolerated the procedure well. The qualityof the bowel preparation was evaluated using the BBPS (Lupton Bowel Preparation Scale) with scores of:Right Colon [...] performed the entire procedure. Electronically signed by Haritah Stover MD Haritha Stover M.D. 07/21/2023 10:59:54 AM . Number of Addenda: 0 Note Initiated On: 07/21/2023 10:23 AM Recognized by the [employer] for promoting quality in endoscopy us Haritha Stover MD ENDOSCOPY PROCEDURES Final Res ult * HM MAMMOGRAPHY (06/04/2021) Impressions Rashida Schneider - 06/04/2021 IMPRESSION: 1. Benign mammogram. READ BY: NINO BAJWA MD 06/05/2021 Historical Provider HEALTH MAINTENANCE Final Result from Last 3 Months or Most Recently Relevant to Health Maintenance
--- OUTSIDE RECORDS SUMMARY | 2025-01-15 06:37 | XMS_ITS | Encounter Summary ---
Author Organization [facility] Healthcare Address [address] [place] [address] Care Team Providers Care Fraud Manager Name Role Phone Jessie Dickson NP Primary Care Provider [phone] Almita Rizzo RN Unavailable [phone] Beth Fernandez MD Unavailable [phone] Maday Oviedo MD Unavailable [phone] Tomasz Scott DO Unavailable [phone] Bashir Alston MD Primary Care Provider [phone] No, Physician Primary Care Provider [phone] Meir Nazario MD Unavailable [phone] Kendra Russell RN Unavailable [phone] Unknown, Notinfile Primary Care Provider Unavail able Sulema Lennon NP Primary Care Provider [phone] Reason for Visit * Reason Onset Date Comments READY TO SCHEDULE 04/28/2023 Encounter Details Date Type Department Care Team (Late st Contact Info) Description 04/28/2023 Telephone [facility] Specialty Services [address] [place] [address] Miscellaneous, Not In File READY TO SCHEDULE [...] on file Legal Sex Female 11:50 PM RESPIRATORY COORDINATOR Gender Identity Not on file Sexual Orientation [...] documented as of this encounter Care Teams Fraud Manager Relationship Specialty Start Date End Date Jessie Dickson NP [address] [place] [address] PCP - General Nurse Practitioner 03/05/21 07/07/23 Bashir Alston MD [address] [place] [address] PCP - General Transplant 07/08/23 07/08/23 No, Physician PCP - General 02/16/24 09/12/24 Unknown, Notinfile PCP - General 09/13/24 09/13/24 Sulema Lennon NP [address] [facility] [address] [place] [address] PCP - General Nurse Practitioner 09/14/24 Almita Rizzo, RN [address] [facility] [address] [place] [id number] Bar[employer] Rifler Button 04/04/21 Beth Fernandez MD [address] [place] [address] Referring Physician Nephrology 04/04/21 Maday Oviedo MD [address] [place] [address] Neurology 09/12/22 Tomasz Scott DO [address] [place] [address] Continuous Mining Machine Lode Miner Cardiology 09/16/22 Meir Nazario MD [address] [place] [address] Obstetrics and Gynecology 04/11/24 Kendra Russell RN [address] [place] [address] SHOP Outpatient Hand Spring Repairer Helper 06/24/24 07/21/24 documented as of this encounter
--- OUTSIDE RECORDS SUMMARY | 2025-01-15 06:37 | XMS_ITS | Clinical Summary ---
Author Organization [facility] Address [facility] [place] [address] Care Team Providers Care Senior Payroll Administrator Name Role Phone Sulema Lennon NP Primary Care Provider [phone] Allergies Active Allergy Reactions Criticality Noted Date [...] (11/23/2024): Added automatically from request for surgery [id number] Bereavement 07/04/2021 Chronic constipation 04/17/2021 Cyst of [...] Overview (11/23/2024): follows with Ivonne Fernandez at [facility] 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 Hypertension 05/31/2018 Blurring of visual image 05/24/2018 Acute conjunctivitis 04/23/2016 Acute laryngitis 04/23/2016 Otitis media 04/23/2016 Diabetic retinopathy associa graeme with type 2 diabetes mellitus 06/12/2015 Visual disturbance 06/12/2015 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 12/07/2014 Hyperlipidemia 06/29/2014 Vitamin D deficiency 09/17/2012 Encounters Date Type Department Care Team Description 11/23/2024 3:15 PM CDT Office Visit [facility], ANA [address] [place] [address] Raulito Valdez MD Follow Up 11/23/2024 11:00 AM CDT Home Care Visit [facility] Home Care [place] [address] [facility] [place] [address] Urmila Allen RN SN OASIS DISCHARGE/ASSESSMENT 11/23/2024 Home Care Visit [facility] Home Care [address] [place] [phone] Urmila Allen RN [facility] 11/23/2024 Travel 11/16/2024 9:00 AM CDT Home Care Visit [address] [place] [phone] Jessica Bond OT OT DISCIPLINE DISCHARGE 11/16/2024 Scan [facility] SR[facility] Scanned, [facility] 11/16/2024 Telephone [facility] [address] [phone] Brian Denise MD Appointment Request 11/14/2024 9:36 AM CDT - 11/14/2024 11:59 PM CDT Hospital Encounter [facility] [address] [facility] [place] [address] Minh Mccarthy MD Discharge Disposition: Home or Self Care (Routine Discharge) 11/14/2024 Travel 11/11/[address] [phone] Minh Mccarthy MD Clarification (Location for Labs) 11/09/2024 1:20 PM CDT Telemedicine [address] [phone] Minh Mccarthy MD Bacteremia (With peritonitis); Chronic Kidney Disease (ESRD on HD); Abnormal Lab Results (CPK elevation) 11/09/[address] [phone] Minh Mccarthy MD Lab Results 11/09/2024 Travel 11/08/2024 Scan [facility] Scanned, [facility] Lab (SCAN) 11/07/2024 Scan [facility] Scanned, [facility] Lab (SCAN) 11/03/2024 2:00 PM CDT Home Care Visit [address] [address] Jessica Bond, OT OT HOME VISIT 11/03/[address] [phone] Minh Mccarthy MD Medication 11/02/2024 Hospital Follow-up Call [facility] [address] Rosibel Alonzo LPN Follow Up Call (PARISA 10/10-10/29/24) 11/01/2024 12:30 PM CDT Home Care Visit [address] [phone] Jessica Bond, SHIRA OT INITIAL EVALUATION 11/01/[address] [phone] Minh Mccarthy MD Appointment Request; Returned Call; Callback 10/31/2024 Telephone [facility] Hospice [place] [address] [address], [facility] [address] [facility] [place] [address] Sulema Lennon NP Advice (Nurse Triage - After Hours ([id number])/) 10/30/2024 2:28 PM CDT - 10/30/2024 11:59 PM [place] [address] Minh Mccarthy MD Discharge Disposition: Home or Self Care (Routine Discharge) 10/30/2024 9:00 AM CDT Home Care Visit [facility] Care [address] [place] [phone] Mariana Glynn, DELFINO SN OASIS START OF CARE 10/30/2024 Home Care Visit [facility] Care [address] [place] [phone] Ivett Willis, DELFINO CASE COMMUNICATION 10/30/2024 Plan of Care Documentation [facility] Home Care [address] [place] [phone] 10/30/2024 Orders Only [facility] [address] Minh Mccarthy MD 10/28/2024 9:00 AM CDT Home Care Visit [address] [place] [phone] Vanita Alberts RN LIAISON VISIT 10/26/2024 7:42 PM CDT Anesthesia Event [place] [place] [address] Favian Moody MD Clements, Kristopher P, CHAIR MECHANIC 10/26/2024 7:40 PM CDT - 10/26/2024 8:49 PM CDT Surgery [place] [place] [address] Raulito Valdez MD PERMACATH PLACEMENT 10/23/2024 3:00 PM CDT - 10/23/2024 4:09 PM CDT Surgery [facility] [address] Raulito Valdez MD TEMPORARY HEMODIALYSIS CATHETER PLACEMENT 10/22/2024 1:09 PM CDT - 10/22/2024 2:39 PM CDT Surgery [facility] [address] Lv Perez MD REMOVAL PERITONEAL DIALYSIS CATHETER 10/22/2024 10:55 AM CDT Anesthesia Event [facility] [place] [address] Edinson Claros MD O'Brien, Patrick K, CRNA 10/22/2024 Travel 10/21/2024 Prep for Procedure [facility], ANA [address] [place] [address] Raulito Valdez MD 10/17/2024 Telephone [facility] Care Management [address] [place] [phone] Keily Weston, medical collections specialist (Swing bed referral to [facility]/B from [facility]/) 10/10/2024 6:44 PM CDT - 10/29/2024 3:04 PM CDT Hospital Encounter [facility] [place] [address] Wagner Paz MD,PHD Alka Contreras MD Romick, [...] Recorded In the past 12 months has smallpox hospital [employer], oil, or water [employer] threatened to shut off services in your [...] any time in the past 12 m [facility], were you homeless or living in a prison (including now)? 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 Office Visit [facility] Medical Group Multispecialty Care - [facility] [address] [facility] [address] [place] [address] Brian Denise MD [address] [place] [address] [address] [place] [address] Health Maintenance Due Date Last Done Comments [...] Hepatitis C Completed 10/26/2024, 05/28/2018 PHQ-2 (Physician [place]) Completed 11/09/2024 Hepatitis A Vaccines Aged Out [...] TOTAL Routine 11/14/2024 9:40 AM CDT Peritonitis ([facility]) OUTSIDE LAB (SCAN ORDER) 11/08/2024 OUTSIDE LAB (SCAN ORDER) 11/08/2024 OUTSIDE LAB (SCAN ORDER) 11/07/2024 HC COMPREHENSIVE METABOLIC PANEL Routine 10/30/2024 1:00 PM CDT Pericolitis ([facility]) Bacteremia Staphylococcus aureus infection, multiple-resistant (MRSA) Unresolved pneumonia HC CBC AUTO W/AUTO DIFF Routine 10/30/2024 1:00 PM CDT Pericolitis ([facility]) Bacteremia Staphylococcus aureus infection, multiple-resistant (MRSA) Unresolved pneumonia HC CREATINE KINASE (CPK) TOTAL Routine 10/30/2024 1:00 PM CDT Pericolitis ([facility]) Bacteremia Staphylococcus aureus infection, multiple-resistant (MRSA) Unresolved [...] 10/23/2024 3:00 PM CDT ESRD on hemodialysis ([facility]) Case Notes SCHED BY NADER 10/21/2024 [...] CATH Routine 10/22/2024 12:15 PM CDT CULTURE BROADCAST ENGINEER Routine 10/22/2024 11:29 AM CDT HC CULTURE [...] AB-90 Routine 10/18/2024 2:00 PM CDT HC JAYA SCREEN Routine 10/18/2024 2:00 PM CDT HC [...] DOCKED DEVICE Routine 10/15/2024 6:24 AM CDT from Last 3 Months Results * (ABNORMAL) CK (CPK) (11/14/2024 9:40 AM CDT) Only the most recent of3 resultswithin the time period is included. CPK 293(H) 21 - 215 U/L 11/14/2024 10:51 AM CDT [facility] 11/14/2024 9:40 AM CDT us Minh Mccarthy MD LABORATORY Final Result [facility] [address] [place] [address], [place] [phone] * OUTSIDE LAB (SCAN ORDER) (11/08/2024) Only the most recent of3 resultswithin the time period is included. 11/08/2024 us [facility] Scanned SCANNING Final Resu lt * (ABNORMAL) COMPREHENSIVE METABOLIC PANEL (10/30/2024 1:00 PM CDT) Only the most recent of5 resultswithin the time period is included. GLUCOSE 116(H) 70 - 99 MG/DL 10/30/2024 3:35 PM CDT [facility] BUN 17 7 - 18 MG/DL 10/30/2024 3:35 PM CDT [facility] CREATININE S/P/B 6.88(HH) 0.55 - 1.02 MG/DL 10/30/2024 3:35 PM CDT [facility] Comment: Critical Result(s) Called at: 15:34:22 on 10/30/2024 by: KAIN QUINN to and read back by:NADER JOHNSON SODIUM S/P/B 138 136 - 145 MMOL/L 10/30/2024 3:35 PM CDT [facility] POTASSIUM S/P/B 3.9 3.5 - 5.1 MMOL/L 10/30/2024 3:35 PM CDT [facility] CHLORIDE S/P/B 100 97 - 115 MMOL/L 10/30/2024 3:35 PM CDT [facility] CO2 33.3(H) 21 - 32 MMOL/L 10/30/2024 3:35 PM CDT [facility] CALCIUM S/P/B 8.9 8.5 - 10.1 MG/DL 10/30/2024 3:35 PM CDT [facility] BILIRUBIN TOTAL S/P/B 0.5 0.2 - 1.2 MG/DL 10/30/2024 3:35 PM CDT [facility] Comment: THIS ASSAY IS NOT RECOMMENDED FOR PATIENTS UNDERGOING TREATMENT WITH ELTROMBOPAG DUE TO THE POTENTIAL FOR FALSELY ELEVATED RESULTS. TOTAL PROTEIN S/P/B 8.0 6.4 - 8.2 G/DL 10/30/2024 3:35 PM CDT [facility] ALBUMIN S/P/B 1.9(L) 3.4 - 5.0 G/DL 10/30/2024 3:35 PM CDT [facility] AST 29 15 - 37 U/L 10/30/2024 3:35 PM CDT [facility] ALT 18 14 - 55 U/L 10/30/2024 3:35 PM CDT [facility] ALKALINE PHOSPHATASE S/P/B 311(H) 50 - 136 U/L 10/30/2024 3:35 PM CDT [facility] ANION GAP 4.7 2 - 10 MMOL/L 10/30/2024 3:35 PM CDT [facility] BUN CREATININE RATIO 2.5(L) 6 - 26 10/30/2024 3:35 PM CDT [facility] A/G RATIO 0.3(L) 1.0 - 2.0 RATIO 10/30/2024 3:35 PM T [facility] GFR ESTIMATE 7(L) >90 ML/MIN/1.7 3 M2 10/30/2024 3:35 PM CDT [facility] Comment: NOTE: eGFR is not calculated for patients <18 years of age or gender unknown. This is an estimated GFR calculation using the new CKD EPI creatinine equation without race and so does not require a correction factor for race. This estimated GFR should not be used for calculating drug doses. 10/30/2024 1:00 PM CDT us Minh Mccarthy MD LABORATORY Final Result [facility] [address] [place] [address], [place] [phone] * (ABNORMAL) CBC W/DIFF AUTOMATED (10/30/2024 1:00 PM CDT) Only the most recent of16 resultswithin the time period is included. [facility] Signature WBC 13.14(H) 4.5 - 11.0 x10'3/uL 10/30/2024 2:40 PM CDT [facility] RBC 3.53(L) 4.20 - 5.40 x10'6/uL 10/30/2024 2:40 PM CDT [facility] HGB 8.9(L) 12.0 - 16.0 G/DL 10/30/2024 2:40 PM CDT [facility] HCT 29.8(L) 38.0 - 48.0 % 10/30/2024 2:40 PM CDT [facility] MCV 84.4 81.0 - 99.0 FL 10/30/2024 2:40 PM CDT [facility] MCH 25.2(L) 27.0 - 31.0 PG 10/30/2024 2:40 PM CDT [facility] MCHC 29.9(L) 32.0 - 36.0 G/DL 10/30/2024 2:40 PM CDT [facility] RDW 15.7(H) 11.5 - 14.5 % 10/30/2024 2:40 PM CDT [facility] PLT 464(H) 130 - 400 x10'3/uL 10/30/2024 2:40 PM CDT [facility] MPV 9.7 9.3 - 12.2 FL 10/30/2024 2:40 PM CDT [facility] DIFFERENTIAL TYPE AUTOMATED DIFFERENTIAL 10/30/2024 2:40 PM CDT [facility] NEUTROPHILS % 66.7 % 10/30/2024 2:40 PM CDT [facility] LYMPHOCYTES % 20.5 % 10/30/2024 2:40 PM CDT [facility] MONOCYTES % 7.3 % 10/30/2024 2:40 PM CDT [facility] EOSINOPHILS 3.5 % 10/30/2024 2:40 PM CDT [facility] BASOPHILS 1.2 % 10/30/2024 2:40 PM CDT [facility] IMMATURE GRANS % 0.8 % 10/31/19 2:40 PM CDT [facility] ABS. NEUTROPHILS 8.75(H) 1.80 - 7.70 x10'3/uL 10/30/2024 2:40 PM CDT [facility] ABS. LYMPHOCYTES 2.70 1.00 - 4.80 x10'3/uL 10/30/2024 2:40 PM CDT [facility] ABS. MONOCYTES 0.96(H) 0.24 - 0.86 x10'3/uL 10/30/2024 2:40 PM CDT [facility] ABS. EOSINOPHILS 0.46(H) 0.04 - 0.36 x10'3/uL 10/30/2024 2:40 PM CDT [facility] ABS. BASOPHILS 0.16(H) 0.01 - 0.08 x10'3/uL 10/30/2024 2:40 PM CDT [facility] ABS. IMMATURE GRANULOCYTES 0.11 0.00 - 0.49 x10'3/uL 10/30/2024 2:40 PM CDT [facility] 10/30/2024 1:00 PM CDT us Minh Mccarthy MD LABORATORY Final Result [facility] [address] [place] [address], [place] [phone] * (ABNORMAL) BASIC METABOLIC PANEL (10/29/2024 6:41 AM CDT) Only the most recent of10 resultswithin the time period is included. GLUCOSE 101(H) 70 - 99 MG/DL 10/29/2024 7:36 AM CDT [facility] BUN 25(H) 7 - 18 MG/DL 10/29/2024 7:36 AM CDT [facility] CREATININE S/P/B 8.79(HH) 0.55 - 1.02 MG/DL 10/29/2024 7:36 AM CDT [facility] Comment:NOT CALLED PER CRITI [employer]ER[employer] POLICY SODIUM S/P/B 137 136 - 145 MMOL/L 10/29/2024 7:36 AM CDT [facility] POTASSIUM S/P/B 3.8 3.5 - 5.1 MMOL/L 10/29/2024 7:36 AM CDT [facility] CHLORIDE S/P/B 101 97 - 115 MMOL/L 10/29/2024 7:36 AM CDT [facility] CO2 31.6 21 - 32 MMOL/L 10/29/2024 7:36 AM CDT [facility] CALCIUM S/P/B 8.4(L) 8.5 - 10.1 MG/DL 10/29/2024 7:36 AM CDT [facility] ANION GAP 4.4 2 - 10 MMOL/L 10/29/2024 7:36 AM CDT [facility] BUN CREATININE RATIO 2.8(L) 6 - 26 10/29/2024 7:36 AM CDT [facility] GFR ESTIMATE 5(L) >90 ML/MIN/1.7 3 M2 10/29/2024 7:36 AM CDT [facility] Comment: NOTE: eGFR is not calculated [...] DO LABORATORY Final Result Performing Organization Address [facility] Co de Phone Number [facility] [address] [place] [address], [place] [phone] * (ABNORMAL) POCT glucose (10/29/2024 5:56 AM CDT) Only the most recent of58 resultswithin the time period is included. GLUCOSE POC 101(H) 70 - 99 mg/dL 10/29/2024 6:02 AM CDT [facility] 10/29/2024 5:56 AM CDT Jose Murdock MD POCT ORDERABLES - DEVICE Vicki l Result Performing Organization Address City/[facility] Co de Phone Number [facility] [address] [place] [address], [place] [phone] * CULTURE, GENITAL W/ GRAM STAIN (10/27/2024 11:50 PM CDT) SPEC DESCRIPTION VAGINAL SPECIMEN 10/28/2024 12:06 AM CDT [facility] SPECIAL REQUESTS NO SPECIAL REQUEST 10/28/2024 12:06 AM CDT [facility] GRAM STAIN RESULT NEGATIVE FOR BACTERIAL VAGINOSIS 10/28/2024 2:25 AM CDT [facility] GRAM STAIN RESULT NO YEAST SEEN 10/28/2024 2:25 AM CDT [facility] CULTURE RESULT LIGHT GROWTH OF NORMAL SANG PRESENT 10/30/2024 11:04 AM CDT [facility] VAGINAL STRUCTURE / Unknown 10/27/2024 11:50 PM CDT 10/28/2024 1:40 AM CDT Chase Aponte DO MICROBIOLOGY - GENERAL ORDERABLE S Final Result [facility] [address] [place] [address], [place] [phone] * HEPATITIS B SURFACE ANTIBODY (10/27/2024 12:20 PM CDT) HEP B SURFACE AB REACTIVE 10/27/2024 2:08 PM CDT [facility] 10/27/2024 12:2 0 PM CDT Candis Moreno MD LABORATORY Final Result Performing Organization Address City/[facility]/ZIP Co de Phone Number [facility] [address] [place] [address], [place] [phone] * HEPATITIS B CORE ANTIBODY (10/27/2024 12:20 PM CDT) HEP B CORE TOTAL AB NON-REACTI VE NON-REACTI VE 10/27/2024 2:07 PM CDT [facility] 10/27/2024 12:2 0 PM CDT us Candis Moreno MD LABORATORY Final Result [facility] [address] [place] [address], [place] [phone] * HEPATITIS B CORE AB IGM (10/27/2024 12:20 PM CDT) HEP B CORE IGM NON-REACTI VE NON-REACTI VE 10/27/2024 2:06 PM CDT [facility] 10/27/2024 12:2 0 PM CDT Candis Moreno MD LABORATORY Final Result [facility] [address] [place] [address], [place] [phone] * XR CHEST PORTABLE (10/26/2024 8:37 PM [...] 8:58 PM Narrative 10/26/2024 9:03 PM CDT [facility] [address] [place], [place] [address] Examination: Chest 1 view portable History: Line [...] Procedure Note Demarco Barnes MD - 10/26/2024 [facility] [address] [place], [place] [address] Examination: Chest 1 view portable History: Line [...] VE NON-REACTI VE 10/26/2024 10:08 PM CDT [facility] HEP B CORE IGM NON-REACTI VE NON-REACTI VE 10/26/2024 10:08 PM CDT [facility] HAV IGM NON-REACTI VE NON-REACTI VE 10/26/2024 10:08 PM CDT [facility] HEPATITIS C AB NON-REACTI VE NON-REACTI VE 10/26/2024 10:08 PM CDT [facility] 10/26/2024 7:06 PM CDT Candis Moreno MD LABORATORY Final Result Performing Organization Address City/[facility]/ZIP Co de Phone Number [facility] [address] [place] [address], [place] [phone] * Vancomycin Random Level (10/24/2024 6:56 AM CDT) Only the most recent of7 resultswithin the time period is included. VANCOMYCIN RANDOM 17.3 MCG/ML 10/24/2024 7:47 AM CDT [facility] Comment:NO THERAPEUTIC RANGE AVAILABLE LAST DOSE UNKNOWN LAST DOSE 10/24/2024 10:08 AM CDT [facility] 10/24/2024 6:56 AM CDT Amos Cline MD LABORATORY Fin al Result [facility] [address] [place] [address], [place] [phone] * TYPE & SCREEN (10/23/2024 10:30 PM CDT) Only the most recent of3 resultswithin the time period is included. ABO/RH B POSITIVE 10/23/2024 11:37 PM CDT [facility] ANTIBODY SCREEN NEGATIVE 10/23/2024 11:37 PM CDT [facility] SAMPLE EXPIRATION 10/26/2024,2 359 10/23/2024 11:37 PM CDT [facility] 10/23/2024 10:3 0 PM CDT Bubba Crowley MD BLOOD BANK TEST ORDERABLES Vicki l Result [facility] [address] [place] [address], * (ABNORMAL) TROPONIN, QUANT (10/23/2024 3:12 PM CDT) Only the most recent of6 resultswithin the time period is included. Pathologist [facility] TROPONIN I HIGH SENSITIVITY 70(H) <54 ng/L 10/23/2024 4:16 PM CDT [facility] Comment: HIGH DOSES OF BIOTIN, TROPONIN-SPECIFIC AUTOANTIBODIES, AND ANTIBODY THERAPY CONTAINING HAMA MAY INTERFERE WITH THIS TEST RESULT. CORRELATION TO CLINICAL HISTORY AND PRESENTATION RECOMMENDED. 10/23/2024 3:12 PM CDT Anuja Newman MD LABORATORY Final Result Performing Organization Address City/[facility]/ZIP Co de Phone Number [facility] [address] [place] [address], [place] [phone] * ECG 12 lead (10/23/2024 12:31 PM CDT) Only the most recent of3 resultswithin the time period is included. 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: Sq : 1980 Requested By: AMOS CLINE Order Number: [id number] Reading MD: Jamar Sharif Measurements Intervals [place] Rate: 69 P: 12 NH: 143 QRS: 7 QRSD: 93 T: 75 QT: 415 QTc: 447 Interpretive Statements SINUS RHYTHM POSSIBLE ANTERIOR MYOCARDIAL INFARCTION [30 ms Q WAVE IN V3/V4, OR R < 0.2 mV IN V4], OF INDETERMINATE AGE Compared to ECG 10/19/2024 21:59:39 Myocardial infarct finding now present T-wave abnormality no longer present Procedure Note Jamar Sharif MD - 10/24/[address] Test Date: 2024-10-23 Pat Name: NIDHI SMART Department: 40 Room: [id number] Gender: Female 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: Jc : 1980 Requested By: AMOS CLINE Order Number: [id number] Reading MD: Jamar Sharif Measurements Intervals [place] Rate: 69 P: 12 NH: 143 QRS: 7 QRSD: 93 T: 75 QT: 415 QTc: 447 Interpretive Statements SINUS RHYTHM POSSIBLE ANTERIOR MYOCARDIAL INFARCTION [30 ms Q WAVE IN V3/V4, OR R < 0.2mV IN V4], OF INDETERMINATE AGE Compared to ECG 10/19/2024 21:59:39 Myocardial infarct finding now present T-wave abnormality no longer present us Amos Cline MD ECG ORDERABLES Fin al Result [facility] RAD * CULTURE BROADCAST ENGINEER (10/22/2024 11:29 AM CDT) SPEC DESCRIPTION CATHETER TIP 10/22/2024 11:31 AM CDT [facility] SPECIAL REQUESTS NO SPECIAL REQUEST 10/22/2024 11:31 AM CDT [facility] CULTURE RESULT NO GROWTH 5 DAYS 10/27/2024 7:25 AM CDT [facility] WOUND CATHETER TIP SUBMITTED SPECIMEN / Unknown 10/22/2024 11:29 AM CDT Lv Perez MD MICROBIOLOGY - GENERAL OR DERABLES Final Result Performing Organization Address City/[facility]/ZIP Co de Phone Number [facility] [address] [place] [address], [place] [phone] * CULTURE, ANAEROBIC (10/22/2024 11:29 AM CDT) SPEC DESCRIPTION CATHETER TIP 10/22/2024 11:31 AM CDT [facility] SPECIAL REQUESTS NO SPECIAL REQUEST 10/22/2024 11:31 AM CDT [facility] CULTURE RESULT NO ANAEROBES ISOLATED AT 5 DAYS. 10/27/2024 6:55 AM CDT [facility] WOUND CATHETER TIP SUBMITTED SPECIMEN / Unknown 10/22/2024 11:29 AM CDT Lv Perez MD MICROBIOLOGY - GENERAL OR DERABLES Final Result Performing Organization Address [facility] Co de Phone Number [facility] [address] [place] [address], [place] [phone] * POTASSIUM, SERUM (10/22/2024 10:06 AM CDT) POTASSIUM S/P/B 4.5 3.5 - 5.1 MMOL/L 10/22/2024 10:49 AM CDT [facility] 10/22/2024 10:0 6 AM CDT Edinson Claros MD LABORATORY Final Resu lt [facility] [address] [place] [address], [place] [phone] * TEST URINE (10/22/2024 8:38 AM CDT) URINE HCG TEST NEGATIVE 10/22/2024 9:42 AM CDT [facility] Comment: VERY DILUTE URINE SPECIMENS MAY NOT CONTAIN CONCRETE BLOCK MASON LEVELS OF HCG. IF IS STILL SUSPECTED, A SERUM HCG TEST IS RECOMMENDED. URINE SPECIMEN FROM URETHRA / Unknown 10/22/2024 8:38 AM CDT us Amos Cline MD URINE ORDERABLES Fi nal Result [facility] [address] [place] [address], * MRI KNEE RT WO CON (10/20/2024 [...] 7:34 AM Narrative 10/21/2024 7:40 AM CDT [facility] [address] [place], [place] [address] EXAMINATION: MRI RIGHT KNEE WITHOUT CONTRAST EXAM [...] Procedure Note Britton Fuchs MD - 10/21/[address] [address] EXAMINATION: MRI RIGHT KNEE WITHOUT CONTRAST EXAM [...] 7.32 - 7.43 10/20/2024 1:09 PM CDT [facility] PCO2 VENOUS 46.0 MMHG 10/20/2024 1:09 PM CDT [facility] Comment:NO REFERENCE RANGE H BEEN ESTABLISHED PO2 VENOUS 37.0 MM HG 10/20/2024 1:09 PM CDT [facility] Comment:NO REFERENCE RANGE H BEEN ESTABLISHED TOTAL CO2 VENOUS 30.6(H) 22.0 - 26.0 MMOL/L 10/20/2024 1:09 PM CDT [facility] VENOUS BASE EXCESS 3.8 MMOL/L 10/20/2024 1:09 PM CDT [facility] Comment:NO REFERENCE RANGE H BEEN ESTABLISHED O2 SAT VENOUS 71 % 10/20/2024 1:09 PM CDT [facility] Comment:NO REFERENCE RANGE H BEEN ESTABLISHED BICARB VENOUS 29.2(H) 22.0 - 29.0 MMOL/L 10/20/2024 1:09 PM CDT [facility] O2 ADMIN VENOUS 28% 1:07 PM CDT [facility] 10/20/2024 11:4 0 AM CDT us Kathi Pimentel MD LABORATORY Final Res ult [facility] [address] [place] [address], [place] [phone] * CULTURE, BACTERIA, BLOOD (10/20/2024 11:24 AM CDT) Only the most recent of5 resultswithin the time period is included. SPEC DESCRIPTION BLOOD-PEDIA TRIC VOLUME 10/20/2024 11:07 AM CDT [facility] SPECIAL REQUESTS NO SPECIAL REQUEST 10/20/2024 11:07 AM CDT [facility] CULTURE RESULT NO GROWTH 5 DAYS 10/25/2024 2:25 PM CDT [facility] BLOOD SPECIMEN OBTAINED FOR BLOOD CULTURE / Unknown 10/20/2024 11:24 AM CDT 10/20/2024 11:25 AM CDT us Chase Aponte DO MICROBIOLOGY - GENERAL ORDERABLE S Final Result Performing Organization Address City/[facility]/ZIP Co de Phone Number [facility] [address] [place] [address], [place] [phone] * LACTIC ACID - SINGLE (10/20/2024 9:05 AM CDT) LACTIC ACID VENOUS 1.2 0.4 - 2.0 MMOL/L 10/20/2024 9:41 AM CDT [facility] 10/20/2024 9:05 AM CDT us Chase Aponte DO LABORATORY Final Result [facility] [address] [place] [address], [place] [phone] * IR CHEST TUBE INSERTION (10/19/2024 4:45 PM CDT) Anatomical Region Laterality Modality Chest Interventional R adiology 10/19/2024 4:51 PM CDT Impressions 10/19/2024 4:57 PM CDT =====IMPRESSION:===== 1. Left pleural complex multiloculated septated large collection. 2. Procedure note for 12 [place] Islander locking pigtail multipurpose percutaneous drainage catheter catheter placement in the left posterior inferior pleural space with ultrasound guidance. 3. 460 mL of slightly turbid orangeish fluid collected and sent for testing. Catheter placed to [facility] for transport and can be placed to suction on return to the floor. 4. Patient likely require lytic administration for further drainage, which can be performed under direction of the cardiothoracic surgical or pulmonology service, as clinically directed. 5. Please call IR if further questions Ordered By: CANDIS MORENO Interpreted By: Geetha Church MD, 10/19/2024 4:51 PM Narrative 10/19/2024 4:57 PM CDT [facility] [address] [place], [place] [address] Procedure: IR ultrasound-guided pleural/chest tube drainage Exam [...] from the patient, patient's medical power of staff attorney. The procedure was discussed including the rationale, alternatives, benefits and risks including but not limited to infection, bleeding, damage to adjacent structures, and failure to place a drain. Timeout was performed. Continuous cardiorespiratory monitoring was performed by the direct supervision of including pulse, blood pressure, and oxygen saturation, under supervision of the interventional radiologist. Total intraprocedure [id number] time with the radiologist was 15 minutes [...] incision was made through which a 5 [place] Yueh one-step catheter was advanced under ultrasound guidance into the pleural space. Stylet was removed. Fluid was returned and a wire placed through the Yueh catheter which was removed followed by placement of a Amplatz guidewire. Tract dilatation was performed over the wire followed by advancement of a 12 [place] Islander locking pigtail multipurpose percutaneous drainage catheter over the wire. Catheter position was confirmed ultrasound of the pigtail formed and locked. Catheter was secured to skin with 2. 0 Ethilon suture, stay fix. Overlying sterile gauze and Tegaderm was placed. Total of 460 mL of slightly turbid orangeish fluid was collected via vacuum bottle and sent for testing. The catheter was placed to [facility] for transported back to the floor. Costume Mistress: Dr. Church No immediate complication Procedure Note Geetha Church MD - 10/19/[address] [address] Procedure: IR ultrasound-guided pleural/chest tube drainage Exam Date/Time: 10/19/2024 4:45 PM Indication: 44 female the line. Left pleural percutaneous catheterdrainage. Complex multiloculated septated pleural collection. Possibleempyema versus a subpulmonic effusion. Currently being treated forbacterial peritonitis Comparison: Ultrasound 10/19/2024. CT chest abdomen pelvis 10/18/2024 andCTA chest 10/13/2024 Procedure and findings: Informed verbal and written consent was obtainedfrom the patient, patient's medical power of staff attorney. The procedure wasdiscussed including the rationale, alternatives, benefits and risksincluding but not limited to infection, bleeding, damage to adjacentstructures, and failure to place a drain. Timeout was performed. Continuous cardiorespiratory monitoring was performed by the directsupervision of including pulse, blood pressure, and oxygen saturation,under supervision of the interventional radiologist. Total intraprocedure bozi-ca-ojbb time with the radiologist was 15minutes Patient [...] incision was made through which a 5 [place] Island[place] Yueh one-stepcatheter was advanced under ultrasound guidance into the pleural space.Stylet was removed. Fluid was returned and a wire placed through the Yuehcatheter which was removed followed by placement of a Amplatz guidewire. Tract dilatation was performed over the wire followed by advancement of a12 [place] Islander locking pigtail multipurpose percutaneous drainage catheter overthe wire. Catheter position was confirmed ultrasound of the pigtail formed andlocked. Catheter was secured to skin with 2. 0 Ethilon suture, stay fix.Overlying sterile gauze and Tegaderm was placed. Total of 460 mL of slightly turbid orangeish fluid was collected viavacuum bottle and sent for testing. The catheter was placed to [facility] for transported back to the floor. Costume Mistress: Dr. Church No immediate complication =====IMPRESSION:===== 1. Left pleural complex multiloculated septated large collection. 2. Procedure note for 12 [place] Islander locking pigtail multipurpose percutaneousdrainage catheter catheter placement in the left posterior inferiorpleural space with ultrasound guidance. 3. 460 mL of slightly turbid orangeish fluid collected and sent fortesting. Catheter placed to [facility] for transport and can be placed tosuction [...] SITE PLEURAL FLUID 10/19/2024 4:44 PM CDT [facility] Fluid pH 8.0 10/19/2024 7:35 PM CDT [facility] Comment: The reference range and other [...] ORDERABLE S Final Result Performing Organization Address [facility] Co de Phone Number [facility] [address] [place] [address], [place] [phone] * LDH BODY FLUID (10/19/2024 4:33 PM CDT) Pathologist [facility] LDH (FLUID) 749 UNITS/L 10/20/2024 10:27 AM CDT [facility] Comment: REFERENCE RANGE NOT ESTABLISHED FOR THIS BODY FLUID. INTERPRET RESULTS WITH CAUTION. DUE TO STORAGE/TRANSPORT CONDITIONS OF SPECIMEN PRIOR TO TESTING, THE RESULTS MAY BE FALSELY DECREASED. SITE PLEURAL FLUID 10/19/2024 4:34 PM CDT [facility] PLEURAL FLUID SPECIMEN / Unknown 10/19/2024 4:33 PM CDT us Yosef Padilla DO BODY FLUIDS AND STOOLS ORDERABLE S Final Result [facility] [address] [place] [address], [place] [phone] [facility] [address] [place] [address], [place] [phone] * AMYLASE FLUID (10/19/2024 4:33 PM CDT) AMYLASE (BODY FLUID) 18 UNITS/L 10/20/2024 10:28 AM CDT [facility] Comment:REFERENCE RANGE NOT ESTABLISHED FOR THIS BODY FLUID. SPECIMEN SOURCE PLEURAL FLUID 10/19/2024 4:34 PM CDT [facility] PLEURAL FLUID SPECIMEN / Unknown 10/19/2024 4:33 PM CDT us Candis Moreno MD BODY FLUIDS AND STOOLS ORDERABLE S Final Result Performing Organization Address City/[facility]/ZIP Co de Phone Number [facility] [address] [place] [address], [place] [phone] [facility] [address] [place] [address], [place] [phone] * PROTEIN TOTAL FLUID (10/19/2024 4:33 PM CDT) PROTEIN (FLUID) 3.4 G/DL 10:28 AM CDT [facility] Comment:REFERENCE RANGE NOT ESTABLISHED FOR THIS BODY FLUID. SITE: PLEURAL FLUID 10/19/2024 4:34 PM CDT [facility] PLEURAL FLUID SPECIMEN / Unknown 10/19/2024 4:33 PM CDT us Yosef Padilla DO BODY FLUIDS AND STOOLS ORDERABLE S Final Result [facility] [address] [place] [address], [place] [phone] [facility] [address] [place] [address], [place] [phone] * CULTURE BODY FLUID W/ GRAM STAIN (10/19/2024 4:33 PM CDT) SPEC DESCRIPTION PLEURAL FLUID 10/19/2024 4:34 PM CDT [facility] SPECIAL REQUESTS NO SPECIAL REQUEST 10/19/2024 4:34 PM CDT [facility] GRAM STAIN RESULT MODERATE WHITE BLOOD CELLS SEEN 10/19/2024 6:45 PM CDT [facility] GRAM STAIN RESULT NO ORGANISMS SEEN 10/19/2024 6:45 PM CDT [facility] CULTURE RESULT NO GROWTH 5 DAYS 10/24/2024 10:17 AM CDT [facility] PLEURAL FLUID SPECIMEN / Unknown 10/19/2024 4:33 PM CDT 10/19/2024 4:44 PM CDT Yosef Padilla DO MICROBIOLOGY - GENERAL ORDERABLE S Final Result [facility] [address] [place] [address], [place] [phone] * CELL COUNT W/ DIFF BODY FLUID (10/19/2024 4:33 PM CDT) Only the most recent of3 resultswithin the time period is included. SOURCE (FLUID) PLEURAL FLUID 025 4:34 PM CDT [facility] VOLUME (FLUID) 1,470.0 mL 10/19/2024 7:36 PM CDT [facility] COLOR (FLUID) JACKIE 10/19/2024 7:36 PM CDT [facility] TURBIDITY EXTREMELY TURBID 10/19/2024 7:36 PM CDT [facility] RBC (FLUID) 14,327 CELLS/UL 10/19/2024 7:36 PM CDT [facility] Comment: The reference range and other method performance specifications have not been established for this assay on body fluids. The test result should be integrated into the clinical context for interpretation and utilized in comparison to blood concentrations of the analyte as appropriate. TOTAL NUCLEATED CELL COUNT 2,489 CELLS/UL 10/19/2024 7:36 PM CDT [facility] Comment: The reference range and other method performance specifications have not been established for this assay on body fluids. The test result should be integrated into the clinical context for interpretation and utilized in comparison to blood concentrations of the analyte as appropriate. SEGS (FLUID) 73 % 10/19/2024 7:36 PM CDT [facility] Comment: The reference range and other method performance specifications have not been established for this assay on body fluids. The test result should be integrated into the clinical context for interpretation and utilized in comparison to blood concentrations of the analyte as appropriate. LYMPHS (FLUID) 4 % 10/19/2024 7:36 PM CDT [facility] Comment: The reference range and other method performance specifications have not been established for this assay on body fluids. The test result should be integrated into the clinical context for interpretation and utilized in comparison to blood concentrations of the analyte as appropriate. OTHER MONONUCLEAR CELLS (FLD) 23 % 10/19/2024 7:36 PM CDT [facility] Comment: THE FOLLOWING MAY INCLUDE MONOCYTE/MACROPHAGE,PLASMA [...] FLUIDS AND STOOLS ORDERABLE S Final Result [facility] [address] [place] [address], [place] [phone] * TRANSFUSE RED BLOOD CELLS (10/19/2024 4:28 [...] 3:04 PM Narrative 10/19/2024 3:30 PM [address]T [address] [address] Procedure: Ultrasound chest Exam Date/Time: 10/19/2024 2:09 [...] a percutaneous chest tube drainage is recommended. Costume Mistress: Dr. Church Procedure Note Geetha Church MD - 10/19/[address] [address] Procedure: Ultrasound chest Exam Date/Time: 10/19/2024 2:09 PM Indication: 44 female. Left pleural effusion. Comparison: CT chest abdomen pelvis 10/18/2024 and 10/13/2024. Technique: Ultrasound of the left posterior chest performed.. Findings: Ultrasound of the left posterior chest was performed initiallyas survey for requested thoracentesis. There is however a large complexmulti loculated multiseptated collection for which a percutaneous chesttube drainage is recommended. Costume Mistress: Dr. Church =====IMPRESSION:===== 1. Left large complex multiloculated multiseptated fluid collection.. 2. Left pleural percutaneous drainage catheter recommended. Ordered By: YOSEF PADILLA Interpreted By: Geetha Church MD, 10/19/2024 3:04 PM Yosef Padilla DO ULTRASOUND Final Result * PTT, PARTIAL THROMBOPLASTIN TIME (10/19/2024 11:21 AM CDT) PTT 35.0 25.1 - 36.5 SEC 10/19/2024 11:59 AM CDT [facility] 10/19/2024 11:2 1 AM CDT Yosef Padilla DO LABORATORY Final Result [facility] [address] [place] [address], [place] [phone] * (ABNORMAL) PROTIME/INR, VENOUS (10/19/2024 11:21 AM CDT) PROTIME 19.1(H) 10.2 - 12.9 SEC 10/19/2024 11:59 AM CDT [facility] INR 1.7 10/19/2024 11:59 AM CDT [facility] Comment: Recommended INR Therapeutic Goals: 2.0-3.0 Routine Therapy 2.5-3.5 Mechanical Prosthetic Valves (High Risk) 10/19/2024 11:2 1 AM CDT Yosef Padilla DO LABORATORY Final Result [facility] [address] [place] [address], * CYTOLOGY GENERIC (10/19/2024 12:00 AM CDT) Only the most recent of2 resultswithin the time period is included. CYTOLOGY OTHER [facility] Department of Laboratory Medicine [address] [place] [address] , extension [phone] Pathology Report Non-gynecologic Cytology Report Name: NIDHI SMART Specimen #: [id number] Age: 1 1980 (Age: 44) Location: [facility] Sex: F Procedure Date: 10/19/2024 Hospital #: [id number] Date Received: 10/21/2024 Date Reported: 10/25/2024 Provider: [...] interpretation, and sign out were performed at [facility], [address] [place] [address]. Electronically Signed Out GARRY JOHNSON MD [facility] 10/19/2024 10/21/2024 10: 11 AM CDT Comment:PLEURAL FLUID, LEFT us Candis Moreno MD PATHOLOGY/CYTOLOGY ORDERABLES Fi nal Result [facility] [address] [place] [address], [place] [phone] * (ABNORMAL) URINALYSIS (10/18/2024 10:12 PM CDT) SPECIMEN TYPE URINE CLEAN CATCH 10/18/2024 10:13 PM CDT [facility] COLOR (U) LIGHT YELLOW 10/18/2024 10:33 PM CDT [facility] TRANSPARENCY TURBID 10/18/2024 10:33 PM CDT [facility] SPECIFIC GRAVITY (U) 1.019 1.001 - 1.030 10/18/2024 10:33 PM CDT [facility] U PH 7.0 5.0 - 9.0 10/18/2024 10:33 PM CDT [facility] LEUKOCYTES (U) 75(A) NEGATIVE 10/18/2024 10:33 PM CDT [facility] NITRITES NEGATIVE NEGATIVE 10/18/2024 10:33 PM CDT [facility] PROTEIN RANDOM (U) 300(H) <30 MG/DL 10/18/2024 10:33 PM CDT [facility] GLUCOSE (U) 300(A) NORMAL MG/DL 10/18/2024 10:33 PM CDT [facility] KETONES MG/DL (U) NEGATIVE NEGATIVE MG/DL 10/18/2024 10:33 PM CDT [facility] UROBILINOGEN NORMAL NORMAL MG/DL 10/18/2024 10:33 PM CDT [facility] BILIRUBIN (U) NEGATIVE NEGATIVE MG/DL 10/18/2024 10:33 PM CDT [facility] BLOOD (U) 1+(A) NEGATIVE 10/18/2024 10:33 PM CDT [facility] MUCUS RARE /LPF 10/18/2024 10:33 PM CDT [facility] WBC/HPF 24(H) <6 /HPF 10/18/2024 10:33 PM CDT [facility] WBC CLUMPS PRESENT 10/18/2024 10:33 PM CDT [facility] RBC/HPF <1 <6 /HPF 10/18/2024 10:33 PM CDT [facility] BACTERIA (U) RARE(A) NONE /HPF 10/18/2024 10:33 PM CDT [facility] SQUAMOUS EPITHELIALS MANY /HPF 10/18/2024 10:33 PM CDT [facility] URINE SPECIMEN OBTAINED BY CLEAN CATCH PROCEDURE / Unknown 10/18/2024 10:12 PM CDT Candis Moreno MD URINE ORDERABLES Final Result [facility] [address] [place] [address], * (ABNORMAL) URINE BACTERIA CULTURE (10/18/2024 10:12 PM CDT) SPEC DESCRIPTION URINE CLEAN CATCH 10/19/2024 3:27 AM CDT [facility] SPECIAL REQUESTS NO SPECIAL REQUEST 10/19/2024 3:27 AM CDT [facility] CULTURE RESULT >100,000 COL/ML VANCOMYCIN RESISTANT ENTEROCOCCUS FAECIUM FOLLOW ISOLATION PROTOCOL. (A) 10/23/2024 2:12 PM CDT [facility] CULTURE RESULT VRE CALLED TO AND REPEATED BACK BY AMISHA WALKER RN 10/23/24 AT 1412. DA 10/23/2024 2:12 PM CDT [facility] URINE SPECIMEN OBTAINED BY CLEAN CATCH [...] occus faecium VANCOMYCIN ESTEVAN (VITEK) >=32: Resistant Gerald Rapp MD MICROBIOLOGY - GENERAL ORDERABL ES Final Result [facility] [address] [place] [address], [place] [phone] * CT CHEST+ABD+PEL WO CON (10/18/2024 5:28 [...] 5:38 PM Narrative 10/18/2024 5:[address] PM [address] [address] EXAMINATION: CT chest/abdomen/pelvis without contrast HISTORY: Shortness [...] abnormalities are identified. Procedure Note Kip Elena, DO - 10/18/[address] [address] EXAMINATION: CT chest/abdomen/pelvis without contrast HISTORY: Shortness [...] LUPUS ANTICOAGULANT REPORT(A) 10/21/2024 5:28 AM CDT [employer] [facility] Comment: A Lupus Anticoagulant is [...] Detected For additional information, please refer to http://education.Fragegg/faq/WAV77b9 (This link is being provided for informational/ educational purposes only.) This interpretation is based on the following test results. PTT (LUPUS ANTICOAGULANT) 60(H) <=40 sec 10/21/2024 5:28 AM CDT [employer] [facility] Comment: Test Performed by [employer], [employer] Yates Fitzwilliam, [address] [place] [address] Lino Rashid M.D., Ph.D., Director of Laboratories , [facility] [id number] DRVVT SCREEN 74(H) <=45 sec 10/21/2024 5:28 AM CDT [employer] [facility] 10/18/2024 2:54 PM CDT us Candis Moreno MD LABORATORY Final Result [employer] [address] [address] [place] [address], * FACTOR V LEIDEN W/ REFLEX (10/18/2024 2:54 PM CDT) [facility] Signature FACTOR V LEIDEN NEGATIVE 1:46 AM CDT [employer] [facility] Comment: FACTOR V LEIDEN (R506Q) VARIANT NOT DETECTED INTERPRETATION REPORT 10/26/2024 1:46 AM CDT [employer] [facility] Comment: INTERPRETATION: This individual is negative (normal) for the Factor V Leiden (R506Q) variant in the Factor V gene. Increased risk of thrombophilia can be caused by a variety of genetic and non-genetic factors not screened for by this assay. Laboratory testing supervised and results monitored by Jarvis Pitts, Ph.D., [facility], [facility]. VARIANT ANALYSIS: The Factor V Leiden [...] Health care providers, please contact your local [employer] genetic counselor or call [employer] ([phone]) for assistance with interpretation of these results. This test was developed and its analytical performance characteristics have been determined by [employer] [facility]. It has not been cleared or approved by the FDA. This assay has been validated pursuant to the CLIA regulations and is used for clinical purposes. Test performed by [employer] [address] [place] [address] Hospitality Manager: Brunilda Fuentes MD,PHD,PEMA Test Reported by [employer], [employer], [address] [place] [address] Lino Rashid M.D., Ph.D., Director of Laboratories , CLIA [id number] 10/18/2024 2:54 PM CDT Candis Moreno MD LABORATORY Final Result Performing Organization Address City/[facility]/ZIP Co de Phone Number [employer] [address] [place], [place] , [place] [phone] * (ABNORMAL) HEXAGONAL PHASE CONFIRM (10/18/2024 2:54 PM CDT) HEXAGONAL PHASE CONF POSITIVE( A) Negative 10/21/2024 4:54 AM CDT [facility]ELSOT[facility] LLY Comment: Test Performed by [employer] [place], [employer], [address] [place] [address] Lino Rashid M.D., Ph.D., Director of Laboratories , CLIA [id number] 10/18/2024 2:54 PM CDT Jamari Arthur MD LABORATORY Final Result [employer] [address] [place], [place] , [place] [phone] * DRVVT CONFIRMATION (10/18/2024 2:54 PM CDT) DRVVT CONFIRMATION Negative Negative 10/21/2024 4:54 AM CDT [facility] Comment: Test Performed by [employer], [employer], [address] [place], [place] Lino Rashid M.D., Ph.D., Director of Laboratories , [facility] [id number] 10/18/2024 2:54 PM CDT Jamari Arthur MD LABORATORY Final Result [facility]ITAL[facility] [address] [place], [place] , * CARDIOLIPIN ANTIBODIES (IGG,IGA,IGM) (10/18/2024 2:54 PM CDT) CARDIOLIPIN AB IGG <2.0 <20.0 GPL 2024 10:12 PM CDT [employer] [facility] Comment: U/mL Value Interpretation ----- < 20.0 Antibody not detected > or = 20.0 Antibody detected CARDIOLIPIN AB IGM <2.0 <20.0 MPL 2024 10:12 PM CDT [employer] [facility] Comment: U/mL Value Interpretation ----- [...] aging. For additional information, please refer to http://education.Fragegg/faq/ROI174 (This link is being provided for informational/ educational purposes only.) Test Performed by [employer] [place], [employer] [facility], [address] [place], [place] Lino Rashid M.D., Ph.D., Director of Laboratories , [place] [id number] CARDIOLIPIN AB IGA <2.0 <20.0 APL 2024 10:12 PM CDT [employer] SHARKEVIN VINCENTY Comment: U/mL Value Interpretation ----- < 20.0 Antibody not detected > or = 20.0 Antibody detected 10/18/2024 2:54 PM CDT Candis Moreno MD LABORATORY Final Result Performing Organization Address City/[facility]/ZIP Co de Phone Number [employer] [place] [id number] [place], [place] , [place] [phone] * RHEUMATOID FACTOR, QUANT (10/18/2024 2:54 PM CDT) Pathologist [facility] RHEUMATOID FACTOR <10 <15 IU/ML 10/18/2024 3:37 PM CDT [facility] 10/18/2024 2:54 PM CDT Jamari Arthur MD LABORATORY Final Result [facility] [address] [place] [address], [place] [phone] * (ABNORMAL) PROTEIN S ACTIVITY FUNCTIONAL (10/18/2024 2:54 PM CDT) PROTEIN S FUNCTIONAL 58(L) 60 - 140 % normal 10/20/2024 9:06 PM CDT [employer] JOSETTE BADILLO Comment: Decreased levels of Protein S activity may be found in patients with hereditary deficiency, warfarin therapy, vitamin K deficiency, liver disease, DIC, or recent thrombosis as well as after surgery. In addition, it may be physiologic in . Test Performed by [employer], [place], [address] [place], [place] Lino Rashid M.D., Ph.D., Director of Laboratories , [place] [id number] 10/18/2024 2:54 PM CDT Candis Moreno MD LABORATORY Final Result [facility] [address] [place] [address], * PROTHROMBIN GENE MUTATION (10/18/2024 2:54 PM CDT) PROTHROMBIN GENE MUTATION NEGATIVE 10/26/2024 1:46 AM CDT CherryKEVIN PATINO Comment: RESULT: [id number] VARIANT NOT DETECTED INTERPRETATION REPORT 10/26/2024 1:46 AM CDT [employer] FairJACQUE PATINO Comment: INTERPRETATION: This individual is negative (normal) for the [id number] variant in the Prothrombin/Factor II gene. Increased risk of thrombophilia can be caused by a variety of genetic and non-genetic factors not screened for by this assay. Laboratory testing supervised and results monitored by aJrvis Pitts, Ph.D., [facility], [facility], [facility]. The V35271T mutation [[id number]: g.29263Z>A (c.*97G>A)] in the Prothrombin/Factor II gene is the second most common inherited risk factor for thrombosis occurring in approximately 2% of Caucasians. Presence of the mutation is associated with an elevation of prothrombin levels to about 30% above normal in heterozygotes and to 70% above normal in homozygotes. Prothrombin (L46117N) mutations are detected by amplification of their [...] Health care providers, please contact your local [employer]' genetic counselor or call [phone] ([phone]) for assistance with interpretation of these results. This test was developed and its analytical performance characteristics have been determined by [facility] [facility]. It has not been cleared or approved by the FDA. This assay has been validated pursuant to the CLIA regulations and is used for clinical purposes. Test performed by [employer] [address] [address] Hospitality Manager: Brunilda Fuentes MD,PHD,PEMA Test Reported by [facility] [place], [employer] [facility] [place], [address] [place] [address] Lino Rashid M.D., Ph.D., Director of Laboratories , CLIA [id number] 10/18/2024 2:54 PM CDT Candis Moreno MD LABORATORY Final Result Performing Organization Address City/[facility]/ZIP Co de Phone Number [place] [address] [place] [address], [place] [phone] * Thrombin Time (10/18/2024 2:54 PM CDT) THROMBIN TIME 19 13 - 19 sec 10/21/2024 5:28 AM CDT HelleroyJUDE BADILLO Comment: Test Performed by [facility] [facility] [employer] [facility], [address] [place] [address] Lino Rashid M.D., Ph.D., Director of Laboratories , CLIA [id number] 10/18/2024 2:54 PM CDT Jamari Arthur MD LABORATORY Final Result Performing Organization Address City/[facility]/ZIP Co de Phone Number [employer] FairSAN [place]UAN [address] [place], [place] , [place] [phone] * PROTEIN C, ACTIVITY (10/18/2024 2:54 PM CDT) Pathologist [facility] PROTEIN C FUNCTIONAL 137 70 - 180 % normal 10/20/2024 9:06 PM CDT [employer] YATESAnthonyCONCETTA LY Comment: Test Performed by [employer], [employer] [facility] [place], [address] [place] [address] Lino Rashid M.D., Ph.D., Director of Laboratories , CLIA [id number] 10/18/2024 2:54 PM CDT us Candis Moreno MD LABORATORY Final Result Performing Organization Address City/[facility]/ZIP Co de Phone Number [place] [id number] [place], [place] , [place] [phone] * FACTOR X (10/18/2024 2:54 PM CDT) Pathologist [facility] FACTOR X 114 70 - 150 % Normal 10/21/2024 5:09 AM CDT [employer] YATES-CONCETTA LY Comment: Test Performed by [facility] [place], [facility] [facility] [place], [address] [place] [address] Lino Rashid M.D., Ph.D., Director of Laboratories , CLIA [id number] 10/18/2024 2:54 PM CDT us Candis Moreno MD LABORATORY Final Result [place] [id number] [place], [place] , [place] [phone] * ANTITHROMBIN III ACTIVITY (10/18/2024 2:54 PM CDT) Pathologist [facility] ANTITHROMBIN III ACTIVITY 89 80 - 135 % normal 10/20/2024 9:06 PM CDT [employer] JOSETTE JUSTINO Comment: Test Performed by [employer] [place], [employer] [facility], [address] [place] [address] Lino Rashid M.D., Ph.D., Director of Laboratories , CLIA [id number] 10/18/2024 2:54 PM CDT Candis Moreno MD LABORATORY Final Result Performing Organization Address City/[facility]/ZIP Co de Phone Number [employer] [address] , [place] [phone] * ANTINUCLEAR ANTIBODY WI RFX (JAYA) (10/18/2024 2:00 PM CDT) JAYA 0.3 10/19/2024 11:50 AM CDT [facility] Comment: NEGATIVE: <0.7 RATIO JAYA PROFILE AND TITER NOT PERFORMED THE JAYA SCREEN TESTS FOR THE FOLLOWING ANTIBODIES BY EIA: SSA1 (RO), SSB1 (LA), PETERS, SCL70, JO1, CENTROMERE, DIRECTOR METABOLISM HISTONE MUST BE ORDERED SEPARATELY DNA (DS) ANTIBODY 1.7 IU/ML 11:50 AM CDT [facility] Comment: NEGATIVE: <10 IU/mL EQUIVOCAL: 10 to 15 IU/mL POSITIVE: >15 IU/mL THIS QUANTITATIVE ASSAY IS CALIBRATED TO THE [employer]'S WO/80 STANDARD. THE LEVEL OF dsDNA AUTOANTIBODY GERERALLY CORRELATES WITH THE LEVEL OF DISEASE ACTIVITY IN SYSTEMIC LUPUS ERYTHMATOSUS 10/18/2024 2:00 PM CDT Jamari Arthur MD LABORATORY Final Result [facility] [address] [place] [address], [place] [phone] * (ABNORMAL) CYCLIC CITRULLINATED PEPTIDE (CCP)ANTIBODY(IGG) (10/18/2024 2:00 PM CDT) CITRULLINE PEPTIDE ANTIBODY 26(H) <20 Units 10/23/2024 11:12 AM CDT [employer] JOSETTE BADILLO Comment: Negative: <20 Weak Positive: 20 - 39 Moderate Positive: 40 - 59 Strong Positive: >59 Test Performed by [employer], [employer] [facility], [address] [place] [address] Lino Rashid M.D., Ph.D., Director of Laboratories , [facility] [id number] 10/18/2024 2:00 PM CDT Jamari Arthur MD LABORATORY Final Result [employer] [address] [address], [place] [phone] * BLOOD SMEAR PERIPHERAL INTERP PHYS W/WRIT REPORT (10/18/2024 2:00 PM CDT) SMEAR TO PATHOLOGIST SEE PATHOLOGY REPORT. 10/21/2024 7:15 AM CDT [facility] 10/18/2024 2:00 PM CDT Candis Moreno MD LABORATORY Final Result [facility] [address] [place] [address], [place] [phone] * (ABNORMAL) PHOSPHORUS, INORGANIC PHOSPHATE (10/18/2024 2:00 PM CDT) PHOSPHORUS 5.8(H) 2.5 - 4.9 MG/DL 10/18/2024 3:02 PM CDT [facility] 10/18/2024 2:00 PM CDT Candis Moreno MD LABORATORY Final Result [facility] [address] [place] [address], * (ABNORMAL) FERRITIN (10/18/2024 2:00 PM CDT) FERRITIN 2,302.9(H) 8.0 - 388.0 NG/ML 10/18/2024 3:41 PM CDT [facility] 10/18/2024 2:00 PM CDT Candis Moreno MD LABORATORY Final Result Performing Organization Address City/[facility]/ZIP Co de Phone Number [facility] [address] [place] [address], * Pathology (10/18/2024 12:00 AM CDT) PATHOLOGY [facility] Department of Laboratory Medicine [address] [place] [address] , extension [phone] Pathology Report Peripheral Smear Report Name: NIDHI SMART Specimen #: [id number] Age: 1 1980 (Age: 44) Location: [id number] Sex: F Procedure Date: 10/18/2024 Hospital #: [id number] Date Received: 10/19/2024 Date Reported: 10/20/2024 Provider: [...] case was interpreted and signed out at [facility], [address] [place], [place] [address]. [facility] 10/18/2024 10/19/2024 10: 10 AM CDT Comment:Peripheral blood us Wagner Paz MD,PHD PATHOLOGY/CYTOLOGY ORDERAB LES Final Result [facility] [address] [place] [address], [id number] * (ABNORMAL) HEPATIC FUNCTION PANEL (10/17/2024 3:17 PM CDT) TOTAL PROTEIN S/P/B 6.7 6.4 - 8.2 G/DL 10/17/2024 3:52 PM CDT [facility] ALBUMIN S/P/B 1.4(L) 3.4 - 5.0 G/DL 10/17/2024 3:52 PM CDT [facility] BILIRUBIN TOTAL S/P/B 0.4 0.2 - 1.2 MG/DL 10/17/2024 3:52 PM CDT [facility] Comment: THIS ASSAY IS NOT RECOMMENDED FOR PATIENTS UNDERGOING TREATMENT WITH ELTROMBOPAG DUE TO THE POTENTIAL FOR FALSELY ELEVATED RESULTS. BILIRUBIN DIRECT S/P/B <0.1 0.0 - 0.20 MG/DL 10/17/2024 3:52 PM CDT [facility] BILIRUBIN INDIRECT S/P/B NOT CALCULATED 0.0 - 0.9 MG/DL 10/17/2024 3:52 PM CDT [facility] ALKALINE PHOSPHATASE S/P/B 203(H) 50 - 136 U/L 10/17/2024 3:52 PM CDT [facility] AST 12(L) 15 - 37 U/L 10/17/2024 3:52 PM CDT [facility] ALT 22 14 - 55 U/L 10/17/2024 3:52 PM CDT [facility] A/G RATIO 0.3(L) 1.0 - 2.0 RATIO 10/17/2024 3:52 PM CDT [facility] 10/17/2024 3:17 PM CDT us Jamari Arthur MD LABORATORY Final Result [facility] [address] [place] [address], [place] [phone] * (ABNORMAL) AMMONIA (10/17/2024 3:17 PM CDT) AMMONIA 34(H) 11 - 32 UMOL/L 10/17/2024 4:00 PM CDT [facility] 10/17/2024 3:17 PM CDT us Jamari Arthur MD LABORATORY Final Result [facility] [address] [place] [address], [place] [phone] * XR HAND LT 3V (10/17/2024 12:23 [...] 5:26 PM Narrative 10/17/2024 5:31 PM CDT [address] [address] IMAGING STUDIES: XR HAND LT 3V DATE: [...] Procedure Note Trav Arshad MD - 10/17/[address] [address] IMAGING STUDIES: XR HAND LT 3VDATE: 10/17/2024 12:07 PM HISTORY: pain 44-year-old female. Current inpatient. Diffuse lefthand pain. COMPARISON: Right hand 10/11/2024. [facility] DISCUSSION: Portable AP, oblique, and lateral views [...] EXTREMITY VASCULAR LAB Pat.Name: NIDHI SMART Pat.ID: [id number] .Date: 10/17/2024 Refer.MD: Sulema Lennon Exam Time: 8:30:00 AM Study Type:EMMANUEL VS Venous Duplex Arm Lt Height: 63 in Age: 1 1980,44Y Sex: F Sonogrphr: Lon Soto, OSKAR, RVT History / Clinical:hx of rue dvt, [...] LEFT UPPER EXTREMITY VASCULAR LAB Pat.Name: NIDHI SMART.ID: [id number] .Date: 10/17/2024 Refer.MD: Sulema Lennon Exam Time: [...] PM Raulito Valdez M.D. Jamari Arthur MD [facility] Final Result * USE ECHOCARDIOGRAM (10/16/2024 5:02 PM CDT) Anatomical Region Laterality Modality Cardiac Echocardiogram 10/16/2024 4:07 PM CDT Narrative 10/16/2024 5:49 PM CDT Echocardiography Report Pat.Name: NIDHI SMART Pat.ID: [id number] .Date: 10/16/2024 Exam Time: 4:07:00 PM Study [...] 38.5 mm Right and Left 0.564 [place] 86.1 mm Ventricular Septum IVSd 1.36 cm [...] MD - 10/16/2024 Echocardiography Report Pat.Name: NIDHI SMART.ID: [id number] .Date: 10/16/2024 Exam Time: 4:07:00 PM Study [...] 38.5 mm Right and Left 0.564 [place] 86.1 mm Ventricular Septum IVSd 1.36 cm [...] - 16.0 G/DL 10/15/2024 12:59 PM CDT [facility] HCT 23.1(L) 38.0 - 48.0 % 10/15/2024 12:59 PM CDT [facility] 10/15/2024 12:2 0 PM CDT Jamari Arthur MD LABORATORY Final Result [facility] [address] [place] [address], [place] [phone] from Last 3 Months Additional Health Concerns 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
--- OUTSIDE RECORDS SUMMARY | 2025-01-15 06:37 | XMS_ITS | Encounter Summary ---
Author Organization [facility] Address [address] [place] [address] Care Team Providers Care Technical Support Representative Name Role Phone Sulema Lennon DRY CLEANING CHECKER Primary Care Provider [phone] Reason for Visit * Reason Onset Date Comments Advice 10/31/2024 Nurse Triage - A fter Hours ([id number]) Encounter Details Date Type Department Care Team (Late st Contact Info) Description 10/31/2024 Telephone [place] [address] [address] [facility] [address] [place] [phone] Sulema Lennon, DRY CLEANING CHECKER [address] [place] [address] Advice (Nurse Triage - After Hours ([id number])/) Social History Tobacco Use Types Packs/Day Years [...] materials from doctor or pharmacy Sometimes 10/30/2024 [facility] Utilities Answer Date Recorded In the [...] any time in the past 12 m [facility], were you homeless or living in a [facility] (including now)? No 10/11/2024 Comments Unknown Sex [...] Status Yes 10/11/2024 12:18 AM CDT Addie rDummond RN Active * Because of a physical, [...] AM CDT Nurse Triage - After Hours ([id number]) Comments Critical Lab Result Regarding: Hospice / Location Unknown / Dr. Mccarthy Regarding: Hospice -[facility] Assessment Notes PC from [facility] lab with critical results. Reports creatinine 6.88. PC to OC Cindy Bruce and advised of results. CALL PCP WITHIN 24 HOURS:CARE ADVICE given per PCP Call - No Triage (Adult) guideline. 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
--- OUTSIDE RECORDS SUMMARY | 2025-01-15 06:37 | XMS_ITS | Clinical Summary ---
Author Organization [facility] Office Center Address [address] [place] [address] Care Team Providers Care Hot Stone Setter Name Role Phone Almita Rizzo RN Unavailable [phone] Beth Fernandez MD Unavailable [phone] Maday Oviedo MD Unavailable [phone] Tomasz Scott DO Unavailable [phone] Meir Nazario MD Unavailable [phone] Sulema Lennon NP Primary Care Provider [phone] Allergies Active Allergy Reactions Criticality Noted Date [...] (04/10/2022): Added automatically from request for surgery [id number] Hypertension 2021 ESRD (end stage renal disease) [...] Encounters Date Type Department Care Team Description 01/12/2025 Telephone [facility] Medicine Rheumatology [address] [facility] 5th [place] [address] [place] [address] Fannie Fountain, LUZ F/U appt 01/02/[address] [facility] Transplant Kidney [address] [facility] [address] Mailstop 90-29-910 [place] [address] Hien Mireles 12/30/2024 Telephone [facility] Medicine Ophthalmology [address] [place] [address] Shorty Coates, OD New pt scheduled 12/23/2024 10:25 AM CDT Lab [facility] [address] [place] [address] Right hand pain; On hydralazine therapy; History of DVT (deep vein thrombosis) 12/23/2024 9:23 AM CDT - 12/23/2024 11:59 PM CDT Hospital Encounter [facility] [address] [place] [address] Polyarthralgia Discharge Disposition: Discharge to home or self care 12/23/2024 8:00 AM CDT Office Visit [facility] Medicine Rheumatology [address] [facility] 5th [place] [address] [place] [address] Fannie Fountain NP History of optic neuritis (Primary Dx); Visual changes; History of DVT (deep vein thrombosis); Right hand pain; Polyarthralgia; On hydralazine therapy 12/19/2024 Telephone [facility] Transplant Kidney [address] [facility] [address] Mailstop 54-58-571 [place] [address] Hien Mireles 12/15/2024 10:00 AM CDT - 12/15/2024 11:59 PM CDT Hospital Encounter [address] [address] Pre-kidney transplant, patient on transplant list; ESRD (end stage renal disease) Discharge Disposition: Discharge to home or self care 11/18/2024 8:00 PM CDT Social Work [facility] Transplant Center [address] [facility], 8th Floor, [place] [address] 11/17/2024 Telephone [facility] Transplant Kidney [address] [facility] [address] Mailstop 70-50-910 [place] [address] Hien Mireles 11/16/2024 Documentation [facility] Transplant Kidney [address] [facility] [address] Mailstop [phone] [place] [address] Almita Rizzo, DELFINO Waitlist Status Update 11/16/2024 Telephone [facility] Transplant Kidney [address] [facility] [address] Mailstop 11-79-204 [place] [address] Hien Mireles 11/16/[address] [facility] Transplant Kidney [address] [facility] [address] Mailstop 22-92-507 [place] [address] Almita Rizzo RN Waitlist Maintenance 11/16/[address] [facility] Transplant Kidney [address] [facility] [address] Mailstop 03-00-580 [place] [address] Almita Rizzo RN Waitlist Maintenance 11/16/[address] [facility] Transplant Kidney [address] [facility] [address] Mailstop 82-74-384 [place] [address] Almita Rizzo RN Waitlist Maintenance 11/04/[address] [facility] Transplant Kidney [address] [facility] [address] Mailstop 64-34-353 [place] [address] Almita Rizzo RN Waitlist Maintenance 10/25/2024 E-Consult [facility] [address] [facility] 3rd [place] [address] Jonathan Brennan MD PhD ESRD (end stage renal disease) (Primary Dx); Pre-transplant evaluation for kidney transplant 10/21/[address] [facility] Transplant Kidney [address] [facility] [address] Mailstop 71-15-[address] [place] [address] Vanda Bruce 10/21/[address] [facility] Transplant Kidney [address] [facility] 340 Mailstop [phone] [place] [address] Almita Rizzo RN Waitlist Status Update (ON HOLD) 10/21/2024 Telephone [facility] Transplant Kidney [address] [facility] [address] Mailstop 55-24-761 [place] [address] Val Umaña, DELFINO After Hours; Transplant Organ Offer 10/20/2024 Orders Only [facility] [address] [place] [address] Sherwin Bhat MD Awaiting organ transplant status 10/20/2024 Orders Only [facility] Transplant Kidney [address] Mailstop 43-83-277 [place] [address] Regina Hernandez RN Awaiting organ transplant status (Primary Dx) 10/20/2024 Documentation [facility] [address] [facility] [place] [address] Clayton Robles MD Transfer Notification 10/19/2024 Orders Only [facility] Surgery [address] [facility] 12th [place] [address] [place] [address] Sherwin Bhat MD 10/18/[address] [facility] Transplant Kidney [address] [facility] [address] Mailstop 02-18-975 [place] [address] Almita Rizzo RN Waitlist Maintenance from Last [...] Tobacco: Never Tobacco Cessation:Counseling Given: Not Answered [facility] Utilities Answer Date Recorded In the past 12 months has NOB[employer], gas, oil, or water company threatened to [...] often do you attend chur ch or yarsanism services? More than 4 times per year 09/14/2024 Do you belong to any clubs o r organizations such as voodoo groups, unions, fraternal or athletic groups, or [...] any time in the past 12 m [facility], were you homeless or living in a assisted (including now)? No 09/14/2024 Personal Safety Answer Date Recorded Have you ever been in or are you currently in a harmful physical or emotional relationship or is someone making you feel afraid or unsafe? Denies 10/06/2024 Comments No Sex and Gender Information Value Date Recorded Sex Assigned at Not on file Legal Sex Female 11:[address] Gender Identity Not on file Sexual Orientation [...] this topic Medical Devices Implanted Type Area Cerner Analyst Device Identifier Shelf Expiration Date Model / Serial / Lot Med[employer]onic Inc [id number] Hooven 15fr 62cm 2 Cuff Radiopaque Peritoneal Curl Catheter - Sn/A - [id number] Implanted:Qty : 1 on 03/14/2021 by Gildardo Leggett MD at [facility] Catheter N/A: Abdomen [employer] 07/01/2025 [id number] / N/A / [id number] Description:Peritoneal Dialy sis Catheter, Curl Cath, 2 Cuffs Graft Vasc 45cm 4-6mm [place] Acuseal Eptfe 3 Layer Kink Rst - [id number] - [id number] Implanted:Qty : 1 on 05/08/2022 by Uche Katz MD at [facility] Graft Left: Arm Wl [employer] [id number] 05/21/2024 [id number] / [id number] / 00 Procedures Procedure Name Priority Date/Time [...] HEPATITIS C ANTIBODY Routine 02/16/2024 11:[address] Pre-kidney transplant, patient on transplant list ESRD [...] will be ACL positive and Beta- 2 [id number]. In order to improve specificity, the International Congress on Antiphospholipid Antibodies recommends Beta-2 GP1 antibodies of IgG or IgM isotype (> the 99th percentile), obtained twice, at least 12 weeks apart, to support a diagnosis of antiphospholipid syndrome. The cutoff for this assay was developed from data based on the 99th percentile. These results were obtained with the Seniorlink System. Beta 2GP1 IgG values obtained with [...] factor. These results were obtained with the Paradine0 System. Beta-2 GP1 IgM values obtained with different manufacturers' assay methods may not be used interchangeably. Current interpretive data was last revised on 2016. Blood 12/23/2024 10:0 5 AM CDT 12/23/2024 10:32 AM CDT Fannie Fountain LAB BLOOD ORDERABLES Final Result Performing Organization Address City/[facility] Co de Phone Number [facility] [place] [address] * PR3 - proteinase 3, Ab (12/23/2024 10:05 AM CDT) Proteinase 3 ab <0.2 <=0.9 Ab Index Comment: Interpretive Data Negative: <1 Ab Index Positive: > or = 1 Ab Index Current interpretive data was last revised on 2016. Blood 12/23/2024 10:0 5 AM CDT 12/23/2024 10:32 AM CDT Fannie Fountain LAB BLOOD ORDERABLES Final Result [facility] Department [place] [address] * MPO - myeloperoxidase antibody (12/23/2024 10:05 AM CDT) Pathologist [facility] Myeloperoxidase ab <0.2 <=0.9 Ab Index Comment: Interpretive Data Negative: <1 Ab Index Positive: > or = 1 Ab Index Current interpretive data was last revised on 2016. Blood 12/23/2024 10:0 5 AM CDT 12/23/2024 10:32 AM CDT Fannie Fountain RETORT OR CONDENSER PRESS OPERATOR LAB BLOOD ORDERABLES Final Result Performing Organization Address [facility] Co de Phone Number [facility] [place] [place] [address] * (ABNORMAL) Anti-Neutrophilic Cytoplasmic Antibody (ANCA) with Reflex to MPO and PR3 Abs (0:05 AM CDT) [facility] ANCA Positive( A) Negative ANCA Titer 1:1280 titer [facility] ANCA Pattern P-ANCA [facility] Comment:IFA Testing is sugge stive of P-ANCA. Results by antigen specific Immunoassay (MPO & PR3) to follow. Blood 12/23/2024 10:0 5 AM CDT 12/23/2024 10:32 AM CDT Fannie Fountain RETORT OR CONDENSER PRESS OPERATOR LAB BLOOD ORDERABLES Final Result Performing Organization Address [facility] Co de Phone Number [facility] [place] [address] * Antihistone antibodies (12/23/2024 10:05 AM CDT) Pathologist [facility] Antihistone <1.0 U Comment: Value Explanation of Results ------ <1.0 Negative 1.0-1.5 Weak Positive 1.6-2.5 Moderate Positive >2.5 Strong Positive Test Performed at: [facility] [address] [place] [phone] IMAN CASTAÑEDA Blood 12/23/2024 10:0 5 AM CDT 12/23/2024 10:32 AM CDT Fannie Hugginstal RETORT OR CONDENSER PRESS OPERATOR LAB BLOOD ORDERABLES Final Result Performing Organization Address [facility] Co de Phone Number [facility] [place] [address] * Uric acid (12/23/2024 10:05 AM CDT) Uric acid 4.2 2.5 - 7.0 mg/dL Blood 12/23/2024 10:0 5 AM CDT 12/23/2024 10:32 AM CDT Fannie Fountain RETORT OR CONDENSER PRESS OPERATOR LAB BLOOD ORDERABLES Final Result Performing Organization Address [facility] Phone Number [facility] Department [place] [address] * XR Knee Bilateral Ap Standing (12/23/2024 [...] signed by: Ric Watts M.D. Fannie Fountain RETORT OR CONDENSER PRESS OPERATOR IMG XR PROCEDURES Fin al Result * HLA Antibody Screen by PRA or SAB per Schedule (Class I and Class II) (12/15/2024 10:00 AM CDT) Blood 12/15/2024 10:0 0 AM CDT Narrative HISTOTRAC - ROAD PATCHER Sample received in lab. Single Antigen Antibody [...] on an FDA-approved IVD kit (LABScreen Single-Antigen, [facility], [place], [place]). All patient serum samples are pretreated with EDTA before the screen to prevent complement interference. Additional serum treatments, such as adsorption and DTT treatment, may be performed as indicated. Interpretive comments: Low risk: MFI [id number]. Moderate risk: MFI 9642-2667. Increased risk: MFI >/= 5000. The presence [...] to avoid. Testing performed at the [facility], [address] [place] [address], 5th floor, [place], [address]. CLIA # [id number]. Amber Berry, Ph.D., District Operations Manager, [facility] Jonathan Brennan M.D., Ph.D., Milk Receiver, [facility] Laboratory Rehana Alarcon, Ph.D., CLIA Milk Receiver, [facility] Clinical [facility] Current methodology and interpretive comments [...] ORDERABLES Final Re sult Performing Organization Address [facility] Co de Phone Number [address] [place], [place] [id number] * (ABNORMAL) Hemoglobin A1c (09/14/2024 5:21 AM CDT) Hgb A1C 6.2(H) 4.0 - 5.6 % Estimated Average Glucose 131 mg/dL [facility] Comment: The ADA recommends reporting an estimated Average Glucose (eAG) with all Hemoglobin A1c results using the equation derived from a study of 507 normal and diabetic adults. Minority populations were underrepresented and children were not included. (Diabetes Care 31:1233-1151, 2008). The eAG is not equivalent to a fasting glucose. Blood 09/14/2024 5:21 AM CDT 09/14/2024 5:36 AM CDT Jonnathan Mojica DO LAB BLOOD ORDERABLES Vicki l Result [address] [place] [address] * Lipid panel (06/21/2024 7:20 PM CDT) Pathologist [facility] Cholesterol 138 30 - 199 mg/dL Comment: [...] on 2017. Triglycerides 112 <=149 mg/dL [facility] Comment: Interpretive Data Ages < or [...] on 2017. HDL 56 >=40 mg/dL [facility] Comment: Interpretive Data Ages < or [...] 2017. LDL, calculated 62 <=129 mg/dL [facility] Comment: Interpretive Data Ages < or = 19 years Acceptable: <110 mg/dL Borderline high: 110-129 mg/dL High: >or= 130 mg/dL Ages > or = 20 years Optimal: <100 mg/dL Near optimal: 100-129 mg/dL Borderline high: 130-159 mg/dL High: >160 mg/dL Calculated using the Escobar LDL-C estimating equation. This equation was implemented on 2023. Prior to this date LDL-C was estimated using the Friedewald equation. Literature References: 1. Expert Panel on Integrated Guidelines for Cardiovascular Health and Risk Reduction in Children and Adolescents. Pediatrics 2011;128:S213 2. NCEP Expert Panel. Circulation 2004;110:227 3. Shawn M et al. DENISE Cardiol. 2020 June 23;5(5):540-548. doi: 10.1001/jamacardio.2020.0013 Current Interpretive Data was last revised on 2023. Non-HDL Cholesterol 82 mg/dL [facility] Comment: Interpretive Data Ages < or [...] revised on 2017. Chol/HDL ratio 2 [facility] Blood 06/21/2024 7:20 PM CDT 06/21/2024 7:40 PM CDT Narrative [facility] - 06/22/2024 8:42 AM CDT Reflex us Brandan Orr MD LAB BLOOD ORDERABLES Vicki l Result Performing Organization Address City/State/[facility] Co de Phone Number [facility] [place] [address] * Hepatitis C antibody Blood (02/16/2024 11:[address]) Hep C Ab Nonreactive Nonreactive Comment:Antibodies to HCV no t detected. Does NOT exclude the possibility of recent exposure to HCV. Current interpretive data was last revised on 21 Blood 02/16/2024 11:[address] 02/16/2024 11:[address] us Tonya Hammonds MD LAB MICROBIOLOGY - GENERAL ORDERABLES Final Result [facility] [place] [address] * Colonoscopy (07/21/2023 10:23 AM CDT) Anatomical Region Laterality Modality Other Narrative Procedure Note Haritha Stover MD - 07/21/2023 10:23 AM CDT [facility] Patient Name: Bakari Smith Procedure Date: 07/21/2023 10:23 AM Date of : 1980 Admit Type: Outpatient Age: 43 Gender: Female Attending MD: Haritha Stover M.D. Room: [facility] ENDOSCOPY ROOM 02 Note Status: [...] The scope was passed under direct vision.The [id number] Colonoscope was introducedthrough the anus and advanced to the the cecum, identifiedby appendiceal orifice and ileocecal valve. The colonoscopy was performed without difficulty. The patient tolerated the procedure well. The qualityof the bowel preparation was evaluated using the BBPS ([place]gora Bowel Preparation Scale) with scores of:Right Colon [...] On: 07/21/2023 10:23 AM Recognized by the [place] [employer] for promoting quality in endoscopy us Haritha Stover MD ENDOSCOPY PROCEDURES Final Res ult * HM MAMMOGRAPHY (06/04/2021) Impressions Rashida Schneider - 06/04/2021 IMPRESSION: 1. Benign mammogram. READ BY: NINO BAJWA MD 06/05/2021 Historical Provider MD HEALTH MAINTENANCE Final Result from Last 3 Months or Most Recently Relevant to Health Maintenance Insurance [employer] [facility] MEDICARE MEDICARE MEDICARE MEDICARE Advance Directives For more information, please contact: [phone] * Full Code (Latest Code Status on File) Date Activated Date Inactivated Comments 09/13/2024 9:22 PM 09/15/2024 6:14 PM * Full Code Date Activated Date Inactivated Comments 06/22/2024 8:11 AM 06/23/2024 7:28 PM * Full Code Date Activated Date Inactivated Comments 07/21/2023 9:59 AM 07/21/2023 3:56 PM Care Teams Hot Stone Setter Relationship Specialty Start Date End Date Sulema Lennon NP [address] [facility] [address] [place], [place] [id number] PCP - General Nurse Practitioner 09/14/24 Almita Rizzo RN [address] [address] Applications Engineer Manufacturing 04/04/21 Beth Fernandez MD [address] [address] Referring Physician Nephrology 04/04/21 Maday Oviedo MD [address] [address] Neurology 09/12/22 Tomasz Scott DO [address] [place] [address] Counter Clerk [employer] Cardiology 09/16/22 Meir Nazario MD [address] [place] [address] Obstetrics and Gynecology 04/11/24
--- OUTSIDE RECORDS SUMMARY | 2025-01-15 06:37 | XMS_ITS | Encounter Summary ---
Author Organization [facility] Health Address [address] [place] [address] Care Team Providers Care Security Management Specialist Name Role Phone Jessie Dickson DIRECT MARKETING ANALYST-SALES DEPARTMENT SUPERVISOR Primary Care Pro vider Encounter Details Date Type Department Care Team (Late st Contact Info) Description 05/25/2018 Ophth Exam [facility] [place] [address] Regina Fritz MD [address] [place] [address] Social History Tobacco Use Types Packs/Day Years Used Date Smoking Tobacco: Never Smokeless Tobacco: Never Alcohol Use Standard Drinks/Week Comments No 0 (1 standard drink = 0.6 oz pur e alcohol) socially. Comments No Sex and Gender Information Value Date Recorded Sex Assigned at Not on file Legal Sex Female 5:16 PM [address] TRAIN DRIVER Gender Identity Not on file Sexual [...] on filedocumented in this encounter Care Teams Security Management Specialist Relationship Specialty Start Date End Date Jessie Dickson TAMMY-SALES DEPARTMENT SUPERVISOR [address] [place] [phone] PCP - General 06/30/14 documented as of this encounter
--- OUTSIDE RECORDS SUMMARY | 2025-01-15 06:37 | XMS_ITS | Clinical Summary ---
Author Organization [facility] Address [address] [place] [address] Care Team Providers Care Dental Mold Maker Name Role Phone Jessie Dickson CREDIT ANALYSIS MANAGER-FOOD AND BEVERAGE ORDER CLERK Primary Care Pro vider Source Comments [facility],non-owned Affiliates and Associated Physician Practices is amultiple site organization consisting of ambulatory clinics and hospital sitesin [place], [place], [place] and [place]. This disclosure is being madepursuant to the Care Everywhere program and may not contain all information available regarding this patient. Last updated 17.[facility] Allergies Active Allergy Reactions Criticality Noted Date [...] Each 11 06/10/19 19 Active ergocalciferol (DRISDOL) 22644 units capsule Take 1 capsule by mouth [...] 2 tablet 01/22/20 22 Active HYDROcodone-acetami nophen ([place]) 5-325 MG tablet Take 1 (one) tablet [...] on file Legal Sex Female 5:16 PM MEDICAL ILLUSTRATOR Gender Identity Not on file Sexual Orientation Not on file Last Filed Vital Signs Vital Sign Reading Time Taken Comments Blood Pressure 145/85 02/05/2022 12:[address] irizarry aware; ok to d/cv Pulse 74 02/05/2022 11:55 AM MEDICAL ILLUSTRATOR Temperature 36.8 C (98.2 F) 09/13/2019 8:22 AM CDT Respiratory Rate 12 02/05/2022 11:5 0 AM MEDICAL ILLUSTRATOR Oxygen Saturation 100% 02/05/2022 11: 55 AM MEDICAL ILLUSTRATOR Inhaled Oxygen Concentration - - Weight 108.9 [...] Unknown 11/01/2018 10:11 AM CDT Tessie Pritchard APRN-FOOD AND BEVERAGE ORDER CLERK LAB - POINT OF CARE O RDERABLES Final Result * HEPATITIS C AB SCREEN RFLX NAAT QUANT (05/28/2018 12:13 PM CDT) Hepatitis C Antibody Non-react javier Non-reac tive 05/28/2018 1:18 PM CDT [facility] Comment: Hepatitis C Antibody screen indicates [...] MD LAB - CHEMISTRY ORDERABLES Final Result [facility] [address] [phone] * HIV-1 HIV-2 ANTIGEN/ANTIBODY (05/24/2018 5:08 PM CDT) HIV Antigen/Antibod y 1 & 2 Non-reacti ve Non-react javier 05/24/2018 5:54 PM CDT [facility] Comment: Neither HIV-1 p24 Antigen nor HIV-1/HIV-2 Antibodies are detected. Blood BLOOD SPECIMEN / Unknown Venipuncture / Unknown 05/24/2018 5:08 PM CDT 05/24/2018 5:16 PM CDT Namita Raymond MD LAB - HEMATOLOGY ORDERABLES Fi nal Result [place] [address] [place] [address], [facility] [phone] from Last 3 Months or Most Recently Relevant to Health Maintenance Insurance MEDICARE MEDICAID - [place] [facility] MEDICAID SPENDDOWN [place] MEDICAID - OUT OF STATE Advance Directives * Full Code (Latest Code Status on File) Date Activated Date Inactivated Comments 05/25/2018 12:57 AM 05/28/2018 5:22 PM * Full Code Date Activated Date Inactivated Comments 05/24/2018 6:24 PM 05/25/2018 12:57 AM Care Teams Dental Mold Maker Relationship Specialty Start Date End Date Jessie Dickson APRN-CNP [address] [place] [phone] PCP - General 06/30/14
--- OUTSIDE RECORDS SUMMARY | 2025-01-15 06:37 | XMS_ITS ---
Author Organization [facility] Office Center Address [address] [place] [address] Care Team Providers [facility] Owner Name Role Phone Almita Rizzo RN Unavailable [phone] Beth Fernandez MD Unavailable [phone] Maday Oviedo MD Unavailable [phone] Tomasz Scott DO Unavailable [phone] Meir Nazario MD Unavailable [phone] Sulema Lennon NP Primary Care Provider [phone] Transplant Episode Kidney Candidate [facility] ([place], [place]) [facility] waitlisted on 09/10/2021 Marked as Inactive on 11/16/2024 Reason: 04 - Insurance Issues Kidney CoordinatorAlmita Rizzo RN Fax: N/A Email: N/A Scores Score Value Updated Exceptions/Reas ons CPRA Not available EPTS (Calc) 57 01/15/2025 [place] 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 Mellitus - Type II Care Team Name Role Phone Fax Email Almita Rizzo RN Kidney Coordinator [phone] N/A N/A Beth Fernandez MD Referring Physician [phone] N/A Hien Mireles Falsework Builder [phone] N/A N/A Events Pre-Transplant Referred: 02/07/2021 Evaluation began: 04/04/2021 Committee: 09/09/2021 UNOS qualified: 01/21/2021 Center waitlisted: 09/10/2021 Dialysis History Dialysis History Start End Type Comments Center 10/20/2024 Hemodialysis T/TH/Sat [facility] 04/23/2021 10/20/[address] Beth prakash [facility] 01/21/2021 04/23/2021 Hemodialysis M/W/F [facility] Dialysis Center Information Center Phone Fax Address [facility] [phone] [place] [id number] [facility] [phone] [address]
[2025-01-15 06:41] LABS: Alanine Aminotransferase 13 U/L (6-35); Albumin Level 3.9 g/dL (3.5-5.1); Alkaline Phosphatase 282 U/L (38-126); Anion Gap 11 mmol/L (4-12); Aspartate Amino Transferase 39 U/L (14-36); Bilirubin,Total 0.6 mg/dL (0.2-1.3); Blood Urea Nitrogen 24 mg/dL (7-17); Calcium 9.7 mg/dL (8.4-10.2); Carbon Dioxide 26 mmol/L (22-30); Chloride 101 mmol/L (98-107); Estimated Glomerular Filt Rate 8; Glucose 123 mg/dL (65-110); Lipase 129 U/L (23-300); Potassium 4.0 mmol/L (3.4-5.0); Sodium 138 mmol/L (137-145); Total Protein 8.2 g/dL (6.3-8.2)
[2025-01-15 06:54] LABS: NT Pro B Type Natriuretic Pept > 30000 pg/mL (19.9-100)
--- NOTE | 2025-01-15 07:13 | WPCEDHO ---
ED Hand Off Checklist All vitals saved:Y IV Site documented:Y All med administrations documented:Y Triage Note Triage Note Pt ambulated to ED w c/o SOB that 01/15/25 05:29 started when she woke up this morning. Pt audibly grunting in triage and speaking in short sentences. Pt denies any dizziness or CP. Allergies metronidazole Allergy (Intermediate, Verified 01/15/25 05:04) Rash omeprazole Allergy (Intermediate, Verified 01/15/25 05:04) Rash adhesive tape Allergy (Mild, Verified 01/15/25 05:04) Itching ibuprofen Allergy (Verified 01/15/25 05:04) Unknown Family History (Last Reviewed 01/15/25 @ 06:14 by Leobardo Parker MD) Mother Diabetes mellitus Breast cancer Sibling History of blood clots Heart disease Father Prostate carcinoma Hypertension Daughter Pulmonary embolism Active Medications including assessments/comments Nicardipine/Sodium Chloride (Cardene 20 Mg/200 Ml Ns) 20 mg in 200 mls @ 50 mls/hr IV CONT .Q4H CHAYO; Protocol Last Admin: 01/15/25 06:48 Dose: 5 mg/hr, 50 mls/hr Documented By: TBR Infusion/Titration Document 01/15/25 06:48 TBR (Rec: 01/15/25 06:49 TBR [id number]) Intake IV Site Peripheral Access Right Antecubital Container Volume 200 Waste Amount 0 Dosing Dose Rate 5 Infusion Rate 50 Increase/Decrease Started Elapsed Time Elapsed Time ( 0m minutes) Cardene Infusion Assessment Document 01/15/25 06:48 TBR (Rec: 01/15/25 06:49 TBR [id number]) Infusion Action Cardene Infusion Initiated Action Pulse Pulse Rate (60-100) 68 Blood Pressure Blood Pressure (100/ 255/111 H 60-140/90) Blood Pressure Mean 159 Administered/Completed Medications Discontinued Medications Diazepam (Diazepam Inj (*Crx) 10 Mg/2 Ml Syringe) 5 mg IV PUSH ONCE ONE Stop: 01/15/25 06:23 Last Admin: 01/15/25 06:26 Dose: 5 mg Documented By: TBR Labetalol HCl (Labetalol Hcl Inj 100 Mg/20 Ml Vial) 20 mg IV PUSH ONCE ONE Stop: 01/15/25 05:45 Last Admin: 01/15/25 05:53 Dose: 20 mg Documented By: TBR Labetalol HCl (Labetalol Hcl Inj 100 Mg/20 Ml Vial) 20 mg IV PUSH ONCE ONE Stop: 01/15/25 06:35 Last Admin: 01/15/25 06:36 Dose: 20 mg Documented By: SRW Interventions/Assessments IV / Saline Lock, Insert Start: 01/15/25 05:03 Freq: Status: Active Protocol: Document 01/15/25 05:18 SRW (Rec: 01/15/25 05:18 SRW [id number]) IV Assessment Peripheral Access Right Antecubital Catheter Gauge 20 IV Insertion 1 Attempts Ultrasound Used for Yes Placement IV Site Assessment WNL IV Care and WNL Maintenance IV / Saline Lock, Insert Start: 01/15/25 05:45 Freq: STAT Status: Active Protocol: Document 01/15/25 06:21 TBR (Rec: 01/15/25 06:22 TBR [id number]) IV Assessment Peripheral Access Right Antecubital Catheter Gauge 20 IV Insertion 1 Attempts Ultrasound Used for No Placement IV Site Assessment WNL IV Care and WNL Maintenance IV Catheter Access Initiated IV Insertion Date 01/15/25 IV Insertion Time 06:00 PA: Cardiovascular Assessment Start: 01/15/25 05:03 Freq: Status: Active Protocol: Document 01/15/25 06:21 TBR (Rec: 01/15/25 06:22 TBR [id number]) Cardiovascular Assessment Cardiovascular None Symptoms Skin Description Normal Color Heart Sounds Normal Jugular Vein None Distention Rhythm/Strength Monitor Rhythm Regular EKG Rythm Sinus Rhythm PA: Respiratory Assessment Start: 01/15/25 05:03 Freq: Status: Active Protocol: Document 01/15/25 05:18 SRW (Rec: 01/15/25 05:19 SRW [id number]) Respiratory Assessment Symptoms None Effort Normal Oxygen Delivery Oxygen Delivery Room Air Last Vital Signs Temperature 99.1 F 01/15/25 05:17 Pulse Rate 72 01/15/25 07:05 Respiratory Rate 20 01/15/25 07:05 Pulse Oximetry 100 01/15/25 07:05 Blood Pressure 211/95 H 01/15/25 07:05 Blood Pressure Mean 133 01/15/25 07:05 Blood Pressure Position Sitting 01/15/25 07:05 Oxygen Delivery BiPAP 01/15/25 06:06 Last Result - Abnormals Only RBC 3.48 M/mm3 (4.2-5.4) L 01/15/25 05:52 Hgb 8.7 g/dL (12.0-15.0) L 01/15/25 05:52 Hct 28.9 % (37.0-47.0) L 01/15/25 05:52 MCH 25.0 pg (26-34) L 01/15/25 05:52 MCHC 30.1 g/dl (32-36) L 01/15/25 05:52 RDW 18.8 % (11.5-14.5) H 01/15/25 05:52 Immature Gran % (Auto) 0.6 % (0-0.5) H 01/15/25 05:52 Eos % (Auto) 8.2 % (0-4.4) H 01/15/25 05:52 Eos # (Auto) 0.7 K/mm3 (0-0.3) H 01/15/25 05:52 Abs Immat Gran (auto) 0.05 K/mm3 (0.00-0.031) H 01/15/25 05:52 PT 15.9 Seconds (11.1-14.7) H 01/15/25 05:52 BUN 24 mg/dL (7-17) H D 01/15/25 05:52 Creatinine 5.85 mg/dL (0.7-1.0) H 01/15/25 05:52 Estimated GFR 8 (59-) L 01/15/25 05:52 Glucose 123 mg/dL (65-110) H 01/15/25 05:52 AST 39 U/L (14-36) H 01/15/25 05:52 Alkaline Phosphatase 282 U/L (38-126) H 01/15/25 05:52 NT-Pro-B Natriuret Pep > 79145 pg/mL (19.9-100) H 01/15/25 05:52 Most Recent Suicide Severity Rating Suicide Severity Rating NO RISK INDICATED 01/15/25 05:29
--- NOTE | 2025-01-15 07:55 | P.HP_ITS ---
H&P: HPI History of Present Illness Date/Time: 01/15/25 07:55 Chief Complaint: Shortness of breath Narrative: 44yo female with ESRD, HTN and DM who presents to the ED for complaints of SOB. Patient was on PD but was transitioned to hemodialysis after she developed abdominal infection with abscess requiring drain placement in September. She has been tolerating HD but plans to return to PD with a new abdominal catheter placed 4 days ago at [facility]. Patient currently goes to HD on /Thu from a left upper chest PermCath site. Last HD was yesterday and she completed her whole session without issue with removal of 0.8L. She was back down to her dry weight but may have lost weight since being off PD. She felt well yesterday after HD but this mornng around 230-3am, she awoke with SOB. She tried pursed lip breathing. She did not check her BP at home. She did not take any medications. She is compliant with her home medications. Nothing seem to make her symptoms better or worse. She does not have COPD or MILAD. She is not on O2 or BiPAP at home. No fever, chills, headache, chest pain, cough, or vision changes. She does have a hx of cataracts and receives 'shots in my eyes' but she is unsure why. Also with complaints of right hand pain since August. She has a hx of 'blood clot' in the right neck veins. She has been following with line up machine operator for this. She has a hx of CVA causing vision changes and balance issues. She presented to the ED for evaluation. On presentation, patient's BP was 270/118. She was 100% on RA. No fevers. WBC and plt normal. Hgb 8.7 but stable and within her baseline. CMP normal except BUN 24, Cr 5.85, AP 282. Lipase normal. BNP>30K. Troponin negative x1. MRSA nasal swab pending. CXR showing interstitial pulmonary edema, persistent pleural effusions and bibasilar atelectasis. She was treated with Labetalol 20mg IV x2 doses, Valium 5mg IV and started on Nicardipine drip. She was admitted to the ICU for further care. Review of Systems Review of Systems: All systems reviewed & are unremarkable except as noted in HPI and below [facility] Past Medical History Medical History Insulin dependent type 2 diabetes mellitus End-stage renal disease on peritoneal dialysis Obesity (BMI 30-39.9) Erythropoietin deficiency anemia Gastroesophageal reflux Arthritis Right wrist left knee Irritable bowel syndrome Diverticulitis Pneumonia Peripheral neuropathy Hypertension Surgical History Surgical History History of section x3 History of dilation and curettage History of appendectomy History of cholecystectomy History of salpingo-oophorectomy History of tubal ligation Family History Family History Mother Diabetes mellitus Breast cancer Sibling History of blood clots due to blood clot Heart disease Sister has something wrong with her heart Father Prostate carcinoma Hypertension Daughter , 06/08/2021, 19yo Pulmonary embolism due to PE Social History Social History (Updated 01/15/25 @ 12:32 by Javy Mead MD) Social History: Life ling nonsmoker. Denies alcohol or drug use. Lives with her son. Surrogate medical decision maker: Robert Smith, daughter. Code status: Full code. Smoking status: Never smoker Second hand tobacco smoke exposure: Yes Alcohol intake: never Substance use: never Substance use type: does not use Do You Feel Safe in your Home?: Yes Lack of Transportation: No Lack of Food: Never True Current Housing: I Have Housing Concerned About Future Housing: No Difficulty Paying Gas/Electric Bills: No Difficulty Paying for Meds: No Currently Unemployed: No Education: Decline to Answer Difficulty w/ Childcare or Family Care: No Living arrangements: with family Additional living arrangements comments: Lives with family in [place]. 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 Spiritual care concerns: No Agree to blood products: Yes Meds Home Medications and Allergies Home Medications ?Medication ?Instructions ?Recorded ?Confirmed ?Type pen needle, diabetic 32 gauge x #50 ea 08/01/24 Rx 5/32 (Easy Comfort Pen [place]) apixaban 5 mg tablet (Eliquis) 5 mg PO BID #60 tabs 01/15/25 Rx insulin degludec 100 unit/mL (3 10 unit (0.1 mL) subcu t DAILY #15 11/02/24 01/15/25 Rx mL) subcutaneous pen mL lactulose 10 gram/15 mL oral 15 ml PO QHS PRN constipa tion 11/02/24 01/15/25 History solution sevelamer HCl 800 mg tablet 1,600 mg PO TID 11/02/24 1 03/17/24 History blood-glucose sensor (FreeStyle #2 ea 11/03/24 5 Rx Alexandro 3 Plus Sensor device) acetaminophen 500 mg tablet 1,000 mg (2 x 500 mg) PO T ID PRN 11/04/24 01/15/25 Rx tessie #180 tabs dextrose 40 % oral gel (Glutose-15) 15 g PO PRN PRN Hy poglycemia #112 12/02/24 01/15/25 Rx grams labetalol 100 mg tablet 400 mg (4 x 100 mg) PO Q12HR #240 12/02/24 01/15/25 Rx tabs pregabalin 75 mg capsule (Lyrica) 75 mg PO DAILY #90 c aps 12/30/24 01/15/25 Rx amlodipine 10 mg tablet 10 mg PO DAILY #90 tabs 12/2401/15/25 Rx doxazosin 2 mg tablet (Cardura) 2 mg PO QHS #90 tabs 1 03/12/24 01/15/25 Rx losartan 100 mg tablet 100 mg PO DAILY #90 tabs 01/15/25 Rx Allergies Allergy/AdvReac Type Severity Reaction Status Date / Time metronidazole Allergy Intermediate Rash Verified 01/15/25 09:08 omeprazole Allergy Intermediate Rash Verified 01/15/25 09:08 adhesive tape Allergy Mild Itching Verified 01/15/25 09:08 ibuprofen Allergy Unknown Verified 01/15/25 09:08 Vital Signs Vital Signs - 24 hr 01/15/25 05:17 01/15/25 05:18 01/15/25 05:30 Temperature 99.1 F Pulse Rate 76 77 Respiratory Rate 20 22 H Blood Pressure 270/118 H 241/100 H Pulse Oximetry 100 97 Oxygen Delivery Room Air 01/15/25 06:06 01/15/25 06:34 01/15/25 06:48 Temperature Pulse Rate 87 80 68 Respiratory Rate 33 H 24 H Blood Pressure 254/112 H 255/111 H Pulse Oximetry 100 100 Oxygen Delivery BiPAP 01/15/25 07:05 01/15/25 07:20 Temperature Pulse Rate 72 69 Respiratory Rate 20 Blood Pressure 211/95 H 177/73 H Pulse Oximetry 100 Oxygen Delivery Exam Narrative: AF 99.1 177/73 69 20 100% Gen - well appearing female in no acute respiratory distress who is nontoxic- appearing lying semi recumbent in bed undergoing HD HEENT - normocephalic. Atraumatic. Pupils equal round and reactive. Extraocular motions intact. Sclera injected. Nares patent. Oropharynx was poorly visualized. No oral lesions. Moist mucous membranes. Tongue was midline. Palate katrina symmetrically. No facial asymmetry. Neck - neck was supple. No dominant adenopathy, thyromegaly or masses. 2+ carotid upstrokes without bruits. Left IJ tunneled dialysis catheter currently in use Chest - lungs are clear anteriorly and in the flanks. Nml RR. Breast exam was deferred. CV - heart was regular rate and rhythm. S1-S2. No murmurs gallops or rubs. Abd - abdomen was soft. Nontender. Nondistended. Positive bowel sounds. No organomegaly or masses. Midline PD catheter dressing clean and dry Ext - no clubbing, cyanosis or edema. 2+ radial pulses bilaterally. Trace DP pulses. Neuro - patient is alert and oriented x4. Business Process Representative strength 4/5 left and 3/5 right. LE strength intact. Cranial nerves 2-12 are intact. Speech is clear. Psych - normal mood and affect. Patient is pleasant and cooperative. Talkative. Poor understanding of her medical conditions. Skin - warm and dry. No rashes noted. H&P: Results Labs Labs: Short CBC 01/15/25 Range/Units 05:52 WBC 8.7 (4.5-10.0) K/mm3 Hgb 8.7 L (12.0-15.0) g/dL Hct 28.9 L (37.0-47.0) % Plt Count 270 (150-375) k/mm3 [facility] 01/15/25 05:52 Sodium 138 Potassium 4.0 Chloride 101 Carbon Dioxide 26 BUN 24 H D Creatinine 5.85 H Glucose 123 H Calcium 9.7 Cardiac Enzymes 01/15/25 Range/Units 05:52 Troponin I < 0.012 (0.000-0.034) ng/mL Liver Function 01/15/25 Range/Units 05:52 Total Bilirubin 0.6 (0.2-1.3) mg/dL AST 39 H (14-36) U/L ALT 13 (6-35) U/L Alkaline Phosphatase 282 H (38-126) U/L Albumin 3.9 (3.5-5.1) g/dL Assessment and Plan Assessment and plan (1) Hypertensive emergency: Code(s): I16.1 - Hypertensive emergency Status: Acute Assessment and Plan: Patient presents with SOB and found to have malignant HTN with BP to 270/118. CXR showing interstitial pulmonary edema and chronic pleural effusions with associated atelectasis. BNP>30K. Troponin negative. EKG showing sinus rhythm with old anteroseptal AL but no change from prior Treated with Labetalol and Valium then started on Nicardipine drip Criminal Attorney consulted and appreciate their input. SOB related to pulmonary edema from chronic fluid overload and uncontrolled HTN. Doubt infectious process - Echo in Dec 2023 with normal EF and diastolic dysfxn - Negative stress test in 2020 Home meds: Norvasc, Doxazosin, Labetalol, Losartan. Restart home meds. HD ordered and currently receiving treatment. Wean off Nicardipine as BP tolerates. Check Echo (2) ESRD needing dialysis: Code(s): N18.6 - End stage renal disease; Z99.2 - Dependence on renal dialysis Status: Acute Assessment and Plan: Patient had abdominal infection in September requiring removal of PD catheter. Tunneled catheter placed and she was started on HD. PD catheter replaced last week. Per nephrology, patient's dry weight may be inaccurate since she may have lost weight off PD over the past few months. Nephrology consulted and appreciate their input HD ordered for today. Continue dialysis to her dry weight Continue Renvela (3) Diabetes: Code(s): E11.9 - Type 2 diabetes mellitus without complications Status: Chronic Assessment and Plan: On Levemir at home. A1c 6.3% in May. Start AccuCheks covering with sliding scale. Hypoglycemia protocol to be available as needed. Resume home meds when able (4) Anemia in chronic kidney disease: Code(s): N18.9 - Chronic kidney disease, unspecified; D63.1 - Anemia in chronic kidney disease Status: Acute Assessment and Plan: Hgb 8.7 on admission and at her baseline. No recent iron studies. Will repeat. Follow HH. (5) DVT (deep venous thrombosis): Code(s): I82.409 - Acute embolism and thrombosis of unspecified deep veins of unspecified lower extremity Status: Acute Assessment and Plan: Hx of right DVT right neck per patient. On Eliquis on admission. Resume Eliquis Plan DVT Prophylaxis - Eliquis Code status - full
--- NOTE | 2025-01-15 08:06 | ADMGEN ---
This patient, Bakari Smith, was admitted to Intensive Care Unit-9. Patient/family oriented to hospital policies and general routines including ID bracelet, bed and alarms, visiting hours, pain management, procedures, bathroom and other care routines, personal items, smoking policy, room service/diet, and visiting hours. Information on how to activate the Rapid Response Team has been discussed. Patient/Family are encouraged to report perceived risks to care and to ask questions if they do not understand what they are told or what they should do.
[2025-01-15 08:14] LABS: MRSA (PCR) NOT DETECTED (NOT DETECTE)
--- NOTE | 2025-01-15 08:56 | WPDCNINT ---
Assessment and Plan Assessment and plan (1) Shortness of breath: Code(s): R06.02 - Shortness of breath Status: Acute Assessment and Plan: 01/15: Patient presented with acute onset of shortness of breath which woke her up from sleep and patient presented the ED in the early hours of 01/15 -proBNP > 30,000 -chest x-ray showed interstitial pulmonary edema, bilateral persistent pleural effusions -patient was placed on BiPAP -could be related to hypertensive urgency and/or end-stage renal disease. -patient currently being dialyzed -troponins are pending -EKG showed normal sinus rhythm (2) Hypertensive urgency: Code(s): I16.0 - Hypertensive urgency Status: Acute Assessment and Plan: Hypertensive urgency likely related to end-stage renal disease and volume overload -discussed with lather apprentice, her dry weight probably is not accurate, he will be adjusting her dry weight -patient being dialyzed as a right this note -will continue home antihypertensives with no ST-T changes (3) Elevated brain natriuretic peptide (BNP) level: Code(s): R79.89 - Other specified abnormal findings of blood chemistry Status: Acute Assessment and Plan: Elevated proBNP could be related to volume overload secondary to end-stage renal disease, -will repeat echocardiogram 01/06/2024: Last echocardiogram -showed EF of 65-70%, moderate concentric increased left ventricular wall thickness, diastolic function was abnormal, E/e ratio 18 is elevated, Na mildly enlarged, mild mitral valve regurg, mild tricuspid valve regurg, mild pulmonary hypertension with RVSP of 45 mmHg (4) Diabetes mellitus type 2, insulin dependent: Code(s): E11.9 - Type 2 diabetes mellitus without complications; Z79.4 - correction (current) use of insulin Status: Chronic Assessment and Plan: Accu-Cheks and sliding scale insulin -will start Lantus once patient starts taking p.o. (5) ESRD needing dialysis: Code(s): N18.6 - End stage renal disease; Z99.2 - Dependence on renal dialysis Status: Acute Assessment and Plan: End-stage renal disease on dialysis, patient was a peritoneal dialysis patient, had multiple episodes of peritonitis per Nephrology, peritoneal dialysis catheter has been changed, patient currently being dialyzed with a temporary tunneled dialysis catheter in the left chest wall -receives dialysis on Tuesdays, and -last dialysis was 01/14/2025, with 800 mL in fluid removal -discussed with Nephrology, he is going to be adjusting her dry weight -proBNP > 30,000 -targeting 3000 mL in fluid removal today, 01/15 -patient still makes urine, -further dialysis scheduling per Nephrology (6) Hand pain, right: Code(s): M79.641 - Pain in right hand Status: Acute Assessment and Plan: Patient has a history of right arm DVT for which she is on the Eliquis at home - swollen left right hand, could be related to volume overload. -obtain right upper extremity Doppler Plan DVT prophylaxis: Will restart Eliquis which is a home medication Stress ulcer prophylaxis: Not indicated Nutrition: NPO for now, will start diet once she is off hemodialysis Code Status: Full code Critical Care Time Spent: 47 minutes Due to a high probability of clinically significant, life threatening deterioration, the patient required my highest level of preparedness to intervene emergently and I personally spent this critical care time directly and personally managing the patient. This critical care time included obtaining a history; examining the patient; pulse oximetry; ordering and review of studies; arranging urgent treatment with development of a management plan; evaluation of patient's response to treatment; frequent reassessment; and discussions with other providers. It was exclusive of separately billable procedures and treating other patients and teaching time. Please see Assessment and Plan section and the rest of the note for further information on patient assessment and treatment This dictation may have been done utilizing a voice recognition system. Attempts have been made to correct errors. However, there may be uncorrected grammatical, spelling, and recognitions errors present. Production Utility Worker Consult Note Consult date: 01/15/25 Reason for consult: Shortness of breath, hypertensive urgency HPI: Bakari Smith is a 44 year old female 44-year-old female with significant past medical history of insulin-dependent diabetes, end-stage renal disease on peritoneal dialysis, currently a transition to hemodialysis and plan to return to peritoneal dialysis as a new catheter has been placed recently at [facility]. Currently on hemodialysis on Tuesdays, , Thursday with a left upper chest PermCath site. Also has a history of diverticulitis, irritable bowel syndrome, peripheral neuropathy, hypertension presented the ED on 01/15/2025 with complaints of shortness of breath which woke her up from a sleep. Denies any chest pain, abdominal pain, nausea, vomiting. She had hemodialysis on 01/14 with removal of 800 mL in fluid removal. According to the lather apprentice and the patient, when she presented the dialysis center she was below her dry weight and that is the reason they did not remove too much fluid. In the ED patient's blood pressures were 270/118. Denies any fevers, chills, cough. In the ER she was given labetalol x2, diazepam and started on nicardipine infusion and transferred to the ICU for further management. Labs in the ER showed a hemoglobin of 8.7, WBC count 8.7, platelets 270, INR 1.3, sodium 138, potassium 4.0, chloride 101, carbon dioxide 26, BUN 24, creatinine 5.85, glucose 123. LFTs within normal limits, bilirubin was 0.6. ProBNP was > 30,000. Lipase of 129. MRSA screen was negative Chest x-ray on admission showed persistent pleural effusion bibasilar atelectasis. Interstitial pulmonary edemaement on BiPAP Patient was on BiPAP in the ER and transfer the ICU for further management Patient seen and examined upon arrival to the ICU, remains on BiPAP /, 21% FiO2. Patient does not want to wear the BiPAP, so was placed on nasal cannula at 2 L, with 98-100% O2 sats. Systolic blood pressures remained in the 220s and 230s. Patient has mild respiratory distress, able to answer questions and follow simple commands. Denies any chest pain, shortness a with abdominal pain, nausea vomiting at this time. Review of Systems Review of Systems: All systems reviewed & are unremarkable except as noted in HPI and below PMFSH Past Medical History Medical History Insulin dependent type 2 diabetes mellitus End-stage renal disease on peritoneal dialysis Obesity (BMI 30-39.9) Erythropoietin deficiency anemia Gastroesophageal reflux Arthritis Right wrist left knee Irritable bowel syndrome Diverticulitis Pneumonia Peripheral neuropathy Hypertension Surgical History Surgical History History of section x3 History of dilation and curettage History of appendectomy History of cholecystectomy History of salpingo-oophorectomy History of tubal ligation Family History Family History Mother Diabetes mellitus Breast cancer Sibling History of blood clots due to blood clot Heart disease Sister has something wrong with her heart Father Prostate carcinoma Hypertension Daughter , 06/08/2021, 19yo Pulmonary embolism due to PE Social History Social History Social History: Surrogate medical decision maker: Robert Smith, daughter. Code status: Full code. Smoking status: Never smoker Second hand tobacco smoke exposure: Yes Alcohol intake: never Substance use: never Substance use type: does not use Do You Feel Safe in your Home?: Yes Lack of Transportation: No Lack of Food: Never True Current Housing: I Have Housing Concerned About Future Housing: No Difficulty Paying Gas/Electric Bills: No Difficulty Paying for Meds: No Currently Unemployed: No Education: Decline to Answer Difficulty w/ Childcare or Family Care: No Living arrangements: with family Additional living arrangements comments: Lives with family in [place]. 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 Spiritual care concerns: No Agree to blood products: Yes Meds Home Medications and Allergies Home Medications ?Medication ?Instructions ?Recorded ?Confirmed ?Type pen needle, diabetic 32 gauge x #50 ea 08/01/24 01/15/25 Rx 5/32 (Easy Comfort Pen [place]) apixaban 5 mg tablet (Eliquis) 5 mg PO BID #60 tabs 11/02/24 01/15/25 Rx insulin degludec 100 unit/mL (3 10 unit (0.1 mL) subcut DAILY #15 11/02/24 01/15/25 Rx mL) subcutaneous pen mL lactulose 10 gram/15 mL oral 15 ml PO QHS PRN constipation 11/02/24 01/15/25 History solution sevelamer HCl 800 mg tablet 1,600 mg PO TID 11/02/24 01/15/25 History blood-glucose sensor (FreeStyle #2 ea 11/03/24 01/15/25 Rx Alexandro 3 Plus Sensor device) acetaminophen 500 mg tablet 1,000 mg (2 x 500 mg) PO TID PRN 11/04/24 01/15/25 Rx tessie #180 tabs dextrose 40 % oral gel (Glutose-15) 15 g PO PRN PRN Hypoglycemia #112 12/02/24 01/15/25 Rx grams labetalol 100 mg tablet 400 mg (4 x 100 mg) PO Q12HR #240 12/02/24 01/15/25 Rx tabs pregabalin 75 mg capsule (Lyrica) 75 mg PO DAILY #90 caps 12/30/24 01/15/25 Rx amlodipine 10 mg tablet 10 mg PO DAILY #90 tabs 01/10/25 01/15/25 Rx doxazosin 2 mg tablet (Cardura) 2 mg PO QHS #90 tabs 01/10/25 01/15/25 Rx losartan 100 mg tablet 100 mg PO DAILY #90 tabs 01/10/25 01/15/25 Rx Allergies Allergy/AdvReac Type Severity Reaction Status Date / Time metronidazole Allergy Intermediate Rash Verified 01/15/25 09:08 omeprazole Allergy Intermediate Rash Verified 01/15/25 09:08 adhesive tape Allergy Mild Itching Verified 01/15/25 09:08 ibuprofen Allergy Unknown Verified 01/15/25 09:08 Vital Signs Vital Signs - 24 hr 01/15/25 05:17 01/15/25 05:18 01/15/25 05:30 Temperature 99.1 F Pulse Rate 76 77 Respiratory Rate 20 22 H Blood Pressure 270/118 H 241/100 H Pulse Oximetry 100 97 Oxygen Delivery Room Air Fraction of Inspired Oxygen 01/15/25 06:06 01/15/25 06:34 01/15/25 06:48 Temperature Pulse Rate 87 80 68 Respiratory Rate 33 H 24 H Blood Pressure 254/112 H 255/111 H Pulse Oximetry 100 100 Oxygen Delivery BiPAP Fraction of Inspired Oxygen 01/15/25 07:05 01/15/25 07:20 01/15/25 07:42 Temperature Pulse Rate 72 69 69 Respiratory Rate 20 Blood Pressure 211/95 H 177/73 H 140/72 Pulse Oximetry 100 Oxygen Delivery Fraction of Inspired Oxygen 01/15/25 07:56 01/15/25 08:01 01/15/25 08:01 Temperature Pulse Rate 74 77 Respiratory Rate 31 H 28 H Blood Pressure Pulse Oximetry 99 99 100 Oxygen Delivery BiPAP BiPAP BiPAP Fraction of Inspired Oxygen 21 21 01/15/25 08:02 01/15/25 08:50 Temperature 97.2 F L Pulse Rate 74 Respiratory Rate 22 H Blood Pressure 216/92 H 210/115 H Pulse Oximetry 95 Oxygen Delivery Fraction of Inspired Oxygen Exam Narrative: General: Pleasant female, with mild respiratory distress HEENT:? Pupils equal reactive, sclerae is clear Neck:? Supple Respiratory:? Coarse breath sounds and decreased air entry at bases bilaterally, no wheezing Cardiac:? S1-S2 normal, regular rate and rhythm Abdomen:? Soft, nontender, nondistended, normoactive bowel so peritoneal dialysis catheter in place Extremities:? Right upper extremity swollen, especially the right hand. Bilateral lower extremity edema, palpable pedal pulses Neuro:? Patient is awake, alert, oriented, answers to questions appropriately and follows simple commands in all extremities Skin:? No skin lesions noted Psych:? Normal mentation and affect Results Labs 01/15/25 05:52 01/15/25 05:52 Labs: Short CBC 01/15/25 Range/Units 05:52 WBC 8.7 (4.5-10.0) K/mm3 Hgb 8.7 L (12.0-15.0) g/dL Hct 28.9 L (37.0-47.0) % Plt Count 270 (150-375) k/mm3 BMP 01/15/25 05:52 Sodium 138 Potassium 4.0 Chloride 101 Carbon Dioxide 26 BUN 24 H D Creatinine 5.85 H Glucose 123 H Calcium 9.7 Cardiac Enzymes 01/15/25 Range/Units 05:52 Troponin I < 0.012 (0.000-0.034) ng/mL Liver Function 01/15/25 Range/Units 05:52 Total Bilirubin 0.6 (0.2-1.3) mg/dL AST 39 H (14-36) U/L ALT 13 (6-35) U/L Alkaline Phosphatase 282 H (38-126) U/L Albumin 3.9 (3.5-5.1) g/dL Hospitalist MIPS Advance Care Plan I have confirmed that the patient's Advanced Care Plan is present, code status is documented, or surrogate decision maker is listed in patient medical record.: Yes Medication Reconciliation I have utilized all available resources to obtain, update and review the patients current medications (includes all prescriptions, OTC, herbals, cannabis, and nutritional supplements).: Yes
[2025-01-15 09:39] LABS: Troponin I < 0.012 ng/mL (0.000-0.034)
--- NOTE | 2025-01-15 10:30 | PM.CNNEP ---
Assessment and Plan Assessment and plan (1) End stage chronic kidney disease: Code(s): N18.6 - End stage renal disease Status: Acute Assessment and Plan: Amy Rodas has end-stage renal disease. She had been on peritoneal dialysis for a while and then got recurrent infections because of an infected catheter film. She has been on hemodialysis and has been doing well. She does gain much weight between treatments. Her blood pressure has been high. She is to be on peritoneal dialysis and is now on hemodialysis and between the stress, not eating very well, and not getting the calories from PD, she possibly has lost some weight. Perhaps she needs a lower dry weight. She left at her dry weight from dialysis yesterday. Will do dialysis today and remove 3L. She will need her dry weight adjusted at the dialysis unit. She does have a new peritoneal dialysis catheter in. She is supposed to get this flushed on Thursday. If she is still in the hospital the dialysis nurses can do that, I believe. I will have Romina talk with them if she is still here. (2) Respiratory failure: Code(s): J96.90 - Respiratory failure, unspecified, unspecified whether with hypoxia or hypercapnia Status: Acute Assessment and Plan: the patient is looking better just with a drop in the blood pressure and improvement in afterload. However, she does have bilateral pleural effusions and probably has lost some weight. So I think we need to take extra fluid off as stated above. (3) Hypertensive emergency: Code(s): I16.1 - Hypertensive emergency Status: Acute Assessment and Plan: I discussed with Dr. Ramos. She is getting some fluid off to help the blood pressure and we will also start her home medications back. She is currently on IV nicardipine (4) Hand pain, right: Code(s): M79.641 - Pain in right hand Status: Acute Assessment and Plan: unclear what is going on here. Dr. Ramos is going to check a venous Doppler. Perhaps she needs a neuro evaluation. (5) Diabetic retinopathy associated with type 2 diabetes mellitus: Code(s): E11.319 - Type 2 diabetes mellitus with unspecified diabetic retinopathy without macular edema Status: Acute Assessment and Plan: She is on a sliding scale insulin plus Accu-Cheks. Hospitalist/director supply chain to manage this. (6) Dyslipidemia: Code(s): E78.5 - Hyperlipidemia, unspecified Status: Chronic Assessment and Plan: She is not on a statin. (7) Anemia: Code(s): D64.9 - Anemia, unspecified Status: Chronic Assessment and Plan: Hemoglobin is 8.7. We will need to give her some Epogen but will wait until blood pressure comes down some History of Present Illness Reason for Consult Consult date: 01/15/25 Chief Complaint Chief complaint: Hypertensive Emergency/Volume/Fluid Overload/Resp History of Present Illness Narrative: Bakari is a very pleasant 44-year-old lady who has multiple medical problems including diabetes, hypertension, end-stage renal disease on dialysis 3 times a week, former PD patient and it tends to restart PD soon, GERD, high body mass index, anemia, renal osteodystrophy, diverticulosis, history of pneumonia and peripheral neuropathy. The patient was in dialysis yesterday and did pretty well. They took off 0.8kg and got to her dry weight. Her blood pressure was a bit high in dialysis yesterday in the 170s. Overnight the patient became more short of breath and then became extremely short of breath and came to the ER. Her systolic blood pressure in the ER was 270 at 1st. She received medications for this and by the time I saw her it was down to 170. The placed her on a BiPAP mask. Her oxygenation was never very low. She is feeling better now. She mentioned that she does not gain much weight between treatments, however she does make some urine. She has been under lot of stress lately. She does not think she has been eating as well as she normally does. She has been taking her medications for her blood pressure and the rest of her medications as well. Review of Systems Constitutional: Constitutional: Reports no additional constitutional complaints Eyes: Eyes: Reports no additional eye complaints ENT: Reports system reviewed and no additional complaints, except as documented Cardiovascular: Cardiovascular: Reports no additional cardiovascular complaints Respiratory: Respiratory: Reports no additional respiratory complaints Gastrointestinal: Gastrointestinal: Reports no additional gastrointestinal complaints Genitourinary: Genitourinary: Reports no additional female genitourinary complaints Musculoskeletal: Musculoskeletal: Reports no additional musculoskeletal complaints Integumentary/Breasts: Skin/Breast: Reports system reviewed and no additional complaints, except as docu Neurologic: Reports system reviewed and no additional complaints, except as documented Psychiatric: Psychiatric: Reports no additional psychiatric complaints Endocrine: Endocrine: Reports no additional endocrine complaints [facility] Past Medical History Medical History Insulin dependent type 2 diabetes mellitus End-stage renal disease on peritoneal dialysis Obesity (BMI 30-39.9) Erythropoietin deficiency anemia Gastroesophageal reflux Arthritis Right wrist left knee Irritable bowel syndrome Diverticulitis Pneumonia Peripheral neuropathy Hypertension Surgical History Surgical History History of section x3 History of dilation and curettage History of appendectomy History of cholecystectomy History of salpingo-oophorectomy History of tubal ligation Family History Family History Mother Diabetes mellitus Breast cancer Sibling History of blood clots due to blood clot Heart disease Sister has something wrong with her heart Father Prostate carcinoma Hypertension Daughter , 06/08/2021, 19yo Pulmonary embolism due to PE Social History Social History Social History: Surrogate medical decision maker: Robert Smith, daughter. Code status: Full code. Smoking status: Never smoker Second hand tobacco smoke exposure: Yes Alcohol intake: never Substance use: never Substance use type: does not use Do You Feel Safe in your Home?: Yes Lack of Transportation: No Lack of Food: Never True Current Housing: I Have Housing Concerned About Future Housing: No Difficulty Paying Gas/Electric Bills: No Difficulty Paying for Meds: No Currently Unemployed: No Education: Decline to Answer Difficulty w/ Childcare or Family Care: No Living arrangements: with family Additional living arrangements comments: Lives with family in [place]. 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 Spiritual care concerns: No Agree to blood products: Yes Meds Home Medications and Allergies Home Medications ?Medication ?Instructions ?Recorded ?Confirmed ?Type pen needle, diabetic 32 gauge x #50 ea 08/01/24 01/15/25 Rx 5/32 (Easy Comfort Pen [place]) apixaban 5 mg tablet (Eliquis) 5 mg PO BID #60 tabs 11/02/24 01/15/25 Rx insulin degludec 100 unit/mL (3 10 unit (0.1 mL) subcut DAILY #15 11/02/24 01/15/25 Rx mL) subcutaneous pen mL lactulose 10 gram/15 mL oral 15 ml PO QHS PRN constipation 11/02/24 01/15/25 History solution sevelamer HCl 800 mg tablet 1,600 mg PO TID 11/02/24 01/15/25 History blood-glucose sensor (FreeStyle #2 ea 11/03/24 01/15/25 Rx Alexandro 3 Plus Sensor device) acetaminophen 500 mg tablet 1,000 mg (2 x 500 mg) PO TID PRN 11/04/24 01/15/25 Rx tessie #180 tabs dextrose 40 % oral gel (Glutose-15) 15 g PO PRN PRN Hypoglycemia #112 12/02/24 01/15/25 Rx grams labetalol 100 mg tablet 400 mg (4 x 100 mg) PO Q12HR #240 12/02/24 01/15/25 Rx tabs pregabalin 75 mg capsule (Lyrica) 75 mg PO DAILY #90 caps 12/30/24 01/15/25 Rx amlodipine 10 mg tablet 10 mg PO DAILY #90 tabs 01/10/25 01/15/25 Rx doxazosin 2 mg tablet (Cardura) 2 mg PO QHS #90 tabs 01/10/25 01/15/25 Rx losartan 100 mg tablet 100 mg PO DAILY #90 tabs 01/10/25 01/15/25 Rx Allergies Allergy/AdvReac Type Severity Reaction Status Date / Time metronidazole Allergy Intermediate Rash Verified 01/15/25 09:08 omeprazole Allergy Intermediate Rash Verified 01/15/25 09:08 adhesive tape Allergy Mild Itching Verified 01/15/25 09:08 ibuprofen Allergy Unknown Verified 01/15/25 09:08 Vital Signs Vital Signs - 24 hr 01/15/25 05:17 01/15/25 05:18 01/15/25 05:30 Temperature 99.1 F Pulse Rate 76 77 Respiratory Rate 20 22 H Blood Pressure 270/118 H 241/100 H Pulse Oximetry 100 97 Oxygen Delivery Room Air Fraction of Inspired Oxygen 01/15/25 06:06 01/15/25 06:34 01/15/25 06:48 Temperature Pulse Rate 87 80 68 Respiratory Rate 33 H 24 H Blood Pressure 254/112 H 255/111 H Pulse Oximetry 100 100 Oxygen Delivery BiPAP Fraction of Inspired Oxygen 01/15/25 07:05 01/15/25 07:20 01/15/25 07:42 Temperature Pulse Rate 72 69 69 Respiratory Rate 20 Blood Pressure 211/95 H 177/73 H 140/72 Pulse Oximetry 100 Oxygen Delivery Fraction of Inspired Oxygen 01/15/25 07:56 01/15/25 08:00 01/15/25 08:01 Temperature Pulse Rate 74 73 77 Respiratory Rate 31 H 28 H Blood Pressure Pulse Oximetry 99 99 Oxygen Delivery BiPAP BiPAP Fraction of Inspired Oxygen 21 01/15/25 08:01 01/15/25 08:02 01/15/25 08:37 Temperature 97.2 F L 98.0 F Pulse Rate 74 70 Respiratory Rate 22 H 25 H Blood Pressure 216/92 H 231/92 H Pulse Oximetry 100 95 99 Oxygen Delivery BiPAP Fraction of Inspired Oxygen 01/15/25 08:50 01/15/25 09:00 01/15/25 09:00 Temperature Pulse Rate 75 72 Respiratory Rate 17 Blood Pressure 210/115 H 238/94 H 238/94 H Pulse Oximetry 100 Oxygen Delivery Fraction of Inspired Oxygen 01/15/25 09:15 01/15/25 09:15 01/15/25 10:00 Temperature Pulse Rate 70 68 Respiratory Rate 13 Blood Pressure 218/146 H 222/120 H Pulse Oximetry 100 100 Oxygen Delivery Room Air Fraction of Inspired Oxygen 01/15/25 10:21 Temperature 98.5 F Pulse Rate Respiratory Rate Blood Pressure Pulse Oximetry Oxygen Delivery Fraction of Inspired Oxygen Exam Narrative: Exam Narrative: Well developed well-nourished Female in no acute distress Skin is warm and dry without rash Head normocephalic atraumatic Eyes normal sclerae and conjunctivae Mouth normal lips teeth and gums Neck no nodes no thyromegaly no carotid bruits Axillae no nodes Back no CVA tenderness Lungs symmetric and clear to auscultation and percussion Heart regular rate and rhythm without rub or gallop Abdomen bowel sounds positive soft nontender, no HSM, masses, or bruits. Extremities no cyanosis, clubbing, or edema. Right hand has decreased mobility and some tenderness. Some swelling present. Pulses 2+ equal in radial arteries Psychological not anxious or depressed Neuro alert and oriented x3 motor 5/5 cranial nerves 2-12 intact reflexes 2+ and equal in the biceps and patellar tendons cerebellar normal rapid alternating movements Results Lab Results 01/15/25 05:52 01/15/25 05:52 Lab results: Most recent lab results Calcium 9.7 mg/dL (8.4-10.2) 01/15/25 05:52
--- NOTE | 2025-01-15 10:39 | PM.EVENT ---
Event Note Event Note Event Note: Patient is on dialysis and tolerating it well. She was seen at 9:15 a.m.. We intend to remove about 3L on the session.
[2025-01-15] MEDS: PREGABALIN (*CRX) 75 MG CAPSULE PO (11:42)
[2025-01-15] MEDS: LABETALOL HCL 100 MG TABLET 400 MG PO ×2 (11:42→20:15)
[2025-01-15] MEDS: LOSARTAN POTASSIUM 100 MG TABLET PO (11:42)
[2025-01-15] MEDS: DOXAZOSIN MESYLATE 2 MG TABLET PO ×2 (11:42→20:15)
[2025-01-15 12:08] LABS: Troponin I < 0.012 ng/mL (0.000-0.034)
[2025-01-15] MEDS: HYDROcodone/acetaminophen (*CRX) 5-325 MG TABLET 1 TAB PO ×2 (13:46→20:20)
[2025-01-15] MEDS: SEVELAMER CARBONATE 800 MG TABLET 1600 MG PO ×2 (14:15→17:10)
[2025-01-15] MEDS: traMADol HCL (*CRX) 50 MG TABLET PO (15:13)
[2025-01-15] MEDS: APIXABAN 5 MG TABLET PO (17:04)
--- NOTE | 2025-01-15 17:37 | WPDNEURCNPN ---
Assessment and Plan Assessment and plan (1) Right carpal tunnel syndrome: Code(s): G56.01 - Carpal tunnel syndrome, right upper limb Status: Acute Assessment and Plan: patient mostly concerned about the right hand pain. the findings are suggestive of carpal tunnel syndrome however other possibility may be considered. I will suggest a x-ray of the right wrist I will also seek an orthopedic consultation and a splint for the right wrist by occupational therapist. With regard to pain medications he can use hydrocodone or Ultram given her renal condition and hypertension. She has this symptom since August. An EMG nerve can study of the right upper limb will be desirable however currently she is going through a lot of medical problems and hence it is not feasible nevertheless an orthopedic or hand surgeon may temporarily alleviate her symptoms. (2) Chronic pain of right hand: Code(s): M79.641 - Pain in right hand; G89.29 - Other chronic pain Status: Acute (3) Hypertensive emergency: Code(s): I16.1 - Hypertensive emergency Status: Acute (4) Elevated brain natriuretic peptide (BNP) level: Code(s): R79.89 - Other specified abnormal findings of blood chemistry Status: Acute (5) Diabetes: Code(s): E11.9 - Type 2 diabetes mellitus without complications Status: Chronic (6) Diabetic polyneuropathy: Code(s): E11.42 - Type 2 diabetes mellitus with diabetic polyneuropathy Status: Acute Consult date: 01/15/25 HPI: Bakari Smith is a 44 year old female with history of insulin dependent diabetes mellitus and end-stage renal disease was seen for complaints of pain in her right hand since August of 2024. She states that her pain is unbearable. She has numbness in the middle finger. She denies any symptoms in the left upper limb or either of the lower limbs. She has been on peritoneal dialysis however currently she is getting hemodialysis through IV cannula. Her current records were reviewed. She has a significant hypertension and shortness of breath and elevated BNP level. According to records has history of right arm DVT for which she is on Eliquis at home. She she does not feel that there is any significant swelling of the right compared to the left hand. However she is very much concerned about the pain in the right wrist and numbness in her fingers. Review of Systems Review of Systems: All systems reviewed & are unremarkable except as noted in HPI and below PMFSH Past Medical History Medical History (Updated 01/15/25 @ 17:44 by Dean Olson MD) Diabetic polyneuropathy Right carpal tunnel syndrome Insulin dependent type 2 diabetes mellitus End-stage renal disease on peritoneal dialysis Obesity (BMI 30-39.9) Erythropoietin deficiency anemia Gastroesophageal reflux Arthritis Right wrist left knee Irritable bowel syndrome Diverticulitis Pneumonia Peripheral neuropathy Hypertension Surgical History Surgical History History of section x3 History of dilation and curettage History of appendectomy History of cholecystectomy History of salpingo-oophorectomy History of tubal ligation Family History Family History Mother Diabetes mellitus Breast cancer Sibling History of blood clots due to blood clot Heart disease Sister has something wrong with her heart Father Prostate carcinoma Hypertension Daughter , 06/08/2021, 19yo Pulmonary embolism due to PE Social History Social History (Updated 01/15/25 @ 12:32 by Javy Mead MD) Social History: Life ling nonsmoker. Denies alcohol or drug use. Lives with her son. Surrogate medical decision maker: Robert Smith, daughter. Code status: Full code. Smoking status: Never smoker Second hand tobacco smoke exposure: Yes Alcohol intake: never Substance use: never Substance use type: does not use Do You Feel Safe in your Home?: Yes Lack of Transportation: No Lack of Food: Never True Current Housing: I Have Housing Concerned About Future Housing: No Difficulty Paying Gas/Electric Bills: No Difficulty Paying for Meds: No Currently Unemployed: No Education: Decline to Answer Difficulty w/ Childcare or Family Care: No Living arrangements: with family Additional living arrangements comments: Lives with family in [place]. 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 Spiritual care concerns: No Agree to blood products: Yes Meds Home Medications and Allergies Home Medications ?Medication ?Instructions ?Recorded ?Confirmed ?Type pen needle, diabetic 32 gauge x #50 ea 08/01/24 01/15/25 Rx (Easy Comfort Pen [place]) apixaban 5 mg tablet (Eliquis) 5 mg PO BID #60 tabs 11/02/24 01/15/25 Rx insulin degludec 100 unit/mL (3 10 unit (0.1 mL) subcut DAILY #15 11/02/24 01/15/25 Rx mL) subcutaneous pen mL lactulose 10 gram/15 mL oral 15 ml PO QHS PRN constipation 11/02/24 01/15/25 History solution sevelamer HCl 800 mg tablet 1,600 mg PO TID 11/02/24 01/15/25 History blood-glucose sensor (FreeStyle #2 ea 11/03/24 01/15/25 Rx Alexandro 3 Plus Sensor device) acetaminophen 500 mg tablet 1,000 mg (2 x 500 mg) PO TID PRN 11/04/24 01/15/25 Rx tessie #180 tabs dextrose 40 % oral gel (Glutose-15) 15 g PO PRN PRN Hypoglycemia #112 12/02/24 01/15/25 Rx grams labetalol 100 mg tablet 400 mg (4 x 100 mg) PO Q12HR #240 12/02/24 01/15/25 Rx tabs pregabalin 75 mg capsule (Lyrica) 75 mg PO DAILY #90 caps 12/30/24 01/15/25 Rx amlodipine 10 mg tablet 10 mg PO DAILY #90 tabs 01/10/25 01/15/25 Rx doxazosin 2 mg tablet (Cardura) 2 mg PO QHS #90 tabs 01/10/25 01/15/25 Rx losartan 100 mg tablet 100 mg PO DAILY #90 tabs 01/10/25 01/15/25 Rx Allergies Allergy/AdvReac Type Severity Reaction Status Date / Time metronidazole Allergy Intermediate Rash Verified 01/15/25 09:08 omeprazole Allergy Intermediate Rash Verified 01/15/25 09:08 adhesive tape Allergy Mild Itching Verified 01/15/25 09:08 ibuprofen Allergy Unknown Verified 01/15/25 09:08 Vital Signs Vital Signs - 24 hr 01/15/25 05:17 01/15/25 05:18 01/15/25 05:30 Temperature 99.1 F Pulse Rate 76 77 Respiratory Rate 20 22 H Blood Pressure 270/118 H 241/100 H Pulse Oximetry 100 97 Oxygen Delivery Room Air Fraction of Inspired Oxygen 01/15/25 06:06 01/15/25 06:34 01/15/25 06:48 Temperature Pulse Rate 87 80 68 Respiratory Rate 33 H 24 H Blood Pressure 254/112 H 255/111 H Pulse Oximetry 100 100 Oxygen Delivery BiPAP Fraction of Inspired Oxygen 01/15/25 07:05 01/15/25 07:20 01/15/25 07:42 Temperature Pulse Rate 72 69 69 Respiratory Rate 20 Blood Pressure 211/95 H 177/73 H 140/72 Pulse Oximetry 100 Oxygen Delivery Fraction of Inspired Oxygen 01/15/25 07:56 01/15/25 08:00 01/15/25 08:01 Temperature Pulse Rate 74 73 77 Respiratory Rate 31 H 28 H Blood Pressure Pulse Oximetry 99 99 Oxygen Delivery BiPAP BiPAP Fraction of Inspired Oxygen 21 01/15/25 08:01 01/15/25 08:02 01/15/25 08:37 Temperature 97.2 F L 98.0 F Pulse Rate 74 70 Respiratory Rate 22 H 25 H Blood Pressure 216/92 H 231/92 H Pulse Oximetry 100 95 99 Oxygen Delivery BiPAP Fraction of Inspired Oxygen 01/15/25 08:50 01/15/25 09:00 01/15/25 09:00 Temperature Pulse Rate 75 72 Respiratory Rate 17 Blood Pressure 210/115 H 238/94 H 238/94 H Pulse Oximetry 100 Oxygen Delivery Fraction of Inspired Oxygen 01/15/25 09:15 01/15/25 09:15 01/15/25 09:30 Temperature Pulse Rate 70 72 Respiratory Rate Blood Pressure 218/146 H 254/102 H Pulse Oximetry 100 Oxygen Delivery Room Air Fraction of Inspired Oxygen 01/15/25 09:45 01/15/25 10:00 01/15/25 10:00 Temperature Pulse Rate 71 68 70 Respiratory Rate 13 Blood Pressure 226/93 H 222/120 H Pulse Oximetry 100 Oxygen Delivery Fraction of Inspired Oxygen 01/15/25 10:00 01/15/25 10:15 01/15/25 10:21 Temperature 98.5 F Pulse Rate 72 69 Respiratory Rate Blood Pressure 222/120 H 261/114 H Pulse Oximetry Oxygen Delivery Fraction of Inspired Oxygen 01/15/25 10:30 01/15/25 10:45 01/15/25 11:00 Temperature Pulse Rate 73 70 64 Respiratory Rate 18 Blood Pressure 236/117 H 254/90 H 117/93 H Pulse Oximetry 98 Oxygen Delivery Fraction of Inspired Oxygen 01/15/25 11:00 01/15/25 11:15 01/15/25 11:22 Temperature Pulse Rate 71 66 73 Respiratory Rate 14 Blood Pressure 117/93 H 245/115 H Pulse Oximetry 100 Oxygen Delivery Room Air Fraction of Inspired Oxygen 01/15/25 11:30 01/15/25 11:41 01/15/25 11:42 Temperature Pulse Rate 63 71 66 Respiratory Rate Blood Pressure 257/87 H 257/87 H Pulse Oximetry Oxygen Delivery Fraction of Inspired Oxygen 01/15/25 11:45 01/15/25 12:00 01/15/25 12:00 Temperature 98.4 F Pulse Rate 72 68 69 Respiratory Rate 22 H Blood Pressure 262/112 H 220/133 H 220/133 H Pulse Oximetry 99 Oxygen Delivery Fraction of Inspired Oxygen 01/15/25 12:00 01/15/25 12:00 01/15/25 12:10 Temperature Pulse Rate 68 69 Respiratory Rate 18 Blood Pressure 240/120 H Pulse Oximetry 100 99 Oxygen Delivery Room Air Fraction of Inspired Oxygen 01/15/25 13:00 01/15/25 13:43 01/15/25 13:46 Temperature 97.9 F Pulse Rate 72 76 Respiratory Rate 21 H 24 H Blood Pressure 250/86 H Pulse Oximetry 100 99 Oxygen Delivery Room Air Fraction of Inspired Oxygen 01/15/25 14:00 01/15/25 14:00 01/15/25 14:16 Temperature 97.8 F Pulse Rate 76 73 78 Respiratory Rate 20 Blood Pressure 192/77 H 234/82 H Pulse Oximetry 100 Oxygen Delivery Fraction of Inspired Oxygen 01/15/25 14:43 01/15/25 15:00 01/15/25 15:00 Temperature Pulse Rate 74 74 72 Respiratory Rate 25 H Blood Pressure 113/77 120/80 120/80 Pulse Oximetry 100 Oxygen Delivery Fraction of Inspired Oxygen 01/15/25 15:30 01/15/25 16:00 01/15/25 16:00 Temperature 98.3 F Pulse Rate 67 68 Respiratory Rate 24 H Blood Pressure 155/79 H 205/96 H Pulse Oximetry 100 100 Oxygen Delivery Room Air Fraction of Inspired Oxygen 01/15/25 16:00 01/15/25 17:00 Temperature Pulse Rate 63 76 Respiratory Rate 19 Blood Pressure 165/142 H Pulse Oximetry Oxygen Delivery Fraction of Inspired Oxygen Exam Const: General: cooperative, healthy appearing and comfortable HENMT: Head: atraumatic Eyes: Alignment and Position: alignment normal and position normal EOM: EOMs intact bilaterally Neck: Neck: normal visual inspection and supple Resp: Effort & Inspection: normal respiratory effort Skin: General skin exam: normal color Neuro: Cranial nerves: Yes CN's II-XII intact bilaterally, Yes facial symmetry and Yes Midline tongue present Cognition (Neuro): normal cognition Speech: normal speech Coordination: [id number] test normal and Normal rapid alternating movements of the distal upper extremity present (Neuro) Other: There is sensory loss in the median nerve distribution the right hand. There is also some distal sensory loss in the 5th digit compared to proximal part of the forearm. Tinel sign was positive over the right wrist. 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 She seems to move all her digits also able to move her wrist. Psych: Mental Status: mental status grossly normal Speech and movement: Normal speech and movement present Affect: normal affect Thought content: Yes Normal thought content present Insight: Good insight present (Psych) Judgement: Good judgement present (Psych) Results Labs 01/15/25 05:52 01/15/25 05:52 Labs: Short CBC 01/15/25 Range/Units 05:52 WBC 8.7 (4.5-10.0) K/mm3 Hgb 8.7 L (12.0-15.0) g/dL Hct 28.9 L (37.0-47.0) % Plt Count 270 (150-375) k/mm3 BMP 01/15/25 05:52 Sodium 138 Potassium 4.0 Chloride 101 Carbon Dioxide 26 BUN 24 H D Creatinine 5.85 H Glucose 123 H Calcium 9.7 Cardiac Enzymes 01/15/25 01/15/25 01/15/25 Range/Units 05:52 09:09 11:41 Troponin I < 0.012 < 0.012 < 0.012 (0.000-0.034) ng/mL Liver Function 01/15/25 Range/Units 05:52 Total Bilirubin 0.6 (0.2-1.3) mg/dL AST 39 H (14-36) U/L ALT 13 (6-35) U/L Alkaline Phosphatase 282 H (38-126) U/L Albumin 3.9 (3.5-5.1) g/dL
[2025-01-16] VITALS (36 sets, daily range): BP systolic 142–208; BP diastolic 40–153; PULSE 62–87; RESP 10–25; TEMP 36.3–37; O2SAT 98–100
--- NOTE | 2025-01-16 | ECHO_ITS ---
Patient Info Name: Bakari Smith Age: 44 years : 1980 Gender: Female Ht: 63 in Wt: 193 lbs BSA: 2.01 m2 BP: 176 / 74 mmHg Technical Quality: Good Exam Date: 01/16/2025 8:47 AM Patient Status: I Admit Date: 01/15/2025 Exam Type: CA echo doppler color flow Complete two-dimensional, color flow and Doppler transthoracic echocardiogram is performed. Staff Referring Physician: Lazaro Ramos MD Complementary Health Therapists: Rona Peck Attending Provider: Denia Atkins DO Summary 1. Complete two-dimensional, color flow and Doppler transthoracic echocardiogram is performed. 2. Left ventricular chamber dimension is normal. 3. Left ventricular systolic function is normal, estimated at 55-60. 4. There is moderate concentric increased left ventricular wall thickness. 5. The left ventricular diastolic function is abnormal. 6. E/e' 21 is elevated. 7. Left atrial chamber dimension is mildly enlarged. 8. There is mild mitral valve regurgitation. 9. There is mild tricuspid valve regurgitation. 10. No pulmonary hypertension, estimated pulmonary arterial systolic pressure is 32 mmHg. 11. There is trace pulmonic regurgitation. 12. There is trace to small circumferential pericardial effusion. Left Ventricle Left ventricular chamber dimension is normal. Left ventricular systolic function is normal, estimated at 55-60. There is moderate concentric increased left ventricular wall thickness. The left ventricular diastolic function is abnormal. E/e' 21 is elevated. Right Ventricle Right ventricular chamber dimension is normal. Right ventricular systolic function is normal and with normal TAPSE 2.5 cm. Left Atria Left atrial chamber dimension is mildly enlarged. Right Atria Right atrial chamber dimension is normal. Aortic Valve The aortic valve is trileaflet. There is no aortic valve stenosis. There is no aortic valve regurgitation. Pulmonic Valve There is trace pulmonic regurgitation. Mitral Valve There is no mitral valve stenosis. There is mild mitral valve regurgitation. Tricuspid Valve There is mild tricuspid valve regurgitation. No pulmonary hypertension, estimated pulmonary arterial systolic pressure is 32 mmHg. Pericardium/Pleural There is trace to small circumferential pericardial effusion. No cardiac tamponade. Inferior Vena Cava Normal inferior vena cava with >50% collapse upon inspiration consistent with normal right atrial pressure, 5 mmHg. Aorta The aortic root size at the sinus of Valsalva is normal. Left Ventricular Outflow Tract Name Value Normal LVOT 2D LVOT Diameter 2.0 cm LVOT Doppler LVOT Peak Velocity 109 cm/s LVOT Peak Gradient 5 mmHg LVOT Mean Gradient 3 mmHg LVOT VTI 26 cm LVOT VTI/AV VTI Ratio 0.8 LVOT Stroke Volume 81 ml LVOT CO 5.1 l/min LVOT CI 2.5 l/min/m2 Pulmonic Valve Name Value Normal PV Doppler PV Peak Velocity 128 cm/s PV Peak Gradient 7 mmHg Mitral Valve Name Value Normal MV Doppler MV Peak Gradient 8 mmHg MV Mean Gradient 4 mmHg MV Area (Cont Eq VTI) 2.2 cm2 MV Regurgitation Doppler MR Peak Gradient 152 mmHg MV Diastolic Function MV E Peak Velocity 127 cm/s MV A Peak Velocity 107 cm/s MV E/A 1.2 MV Decel Time (PW) 179 ms MV Annular TDI MV E/e' (Septal) 25.2 MV E/e' (Lateral) 18.9 MV E/e' (Average) 22.1 Tricuspid Valve Name Value Normal TV Regurgitation Doppler TR Peak Velocity 260 cm/s TR Peak Gradient 27 mmHg Estimated PAP/RSVP RA Pressure 5 mmHg <=5 PA Systolic Pressure 32 mmHg <36 RV Systolic Pressure 32 mmHg <36 TV Annular TDI TV Lateral Rehana s' Velocity 14.2 cm/s >=9.5 Aortic Valve Name Value Normal AV Doppler AV Peak Velocity 155 cm/s AV Peak Gradient 10 mmHg AV Mean Gradient 5 mmHg AV VTI 33 cm AV Area (Cont Eq VTI) 2.5 cm2 >=3.0 AV Area (Cont Eq Hussain) 2.2 cm2 AV DI (Hussain) 0.70 AV Regurgitation 2D LVOT Area 3.1 cm2 Ventricles Name Value Normal LV Dimensions 2D/MM IVS Diastolic Thickness (2D) 1.4 cm 0.6-1.0 LVID Diastole (2D) 4.7 cm 3.8-5.2 LVIW Diastolic Thickness (2D) 1.4 cm 0.6-0.9 LVID Systole (2D) 3.1 cm 2.2-3.5 LVOT Diameter 2.0 cm LV Mass (2D Cubed) 264.98 g 67.00-162.00 LV Mass Index (2D Cubed) 132 g/m2 43-95 Relative Wall Thickness (2D) 0.60 <=0.42 LV Fractional Shortening/Ejection Fraction 2D/MM LV Fractional Shortening (2D) 34 % 27-45 LV EF (2D Teichholz) 63 % LV Diastolic Volume (4C MOD) 102 ml LV EF (4C MOD) 54 % LV Diastolic Volume (2C MOD) 92 ml LV EF (2C MOD) 50 % LV Diastolic Volume (BP MOD) 98 ml 46-106 LV Diastolic Volume Index (BP MOD) 49 ml/m2 29-61 LV Systolic Volume (BP MOD) 48 ml 14-42 LV Systolic Volume Index (BP MOD) 24 ml/m2 8-24 LV EF (BP MOD) 51 % 54-74 LV Diastolic Length (4C) 8.9 cm LV Systolic Length (4C) 6.9 cm LV Stroke Volume (4C MOD) 55 ml Atria Name Value Normal LA Dimensions LA Volume (4C A-L) 68 ml LA Volume (BP A-L) 66 ml RA Dimensions RA Systolic Major Cecilia Length (4C) 3.7 cm 2.2-2.8 RA Area (4C) 9.4 cm2 <=18.0 Report Signatures
[2025-01-16] MEDS: traMADol HCL (*CRX) 50 MG TABLET PO ×3 (00:02→20:36)
[2025-01-16] MEDS: DIPHENHYDRAMINE 1%/ZINC 0.1% CREAM 30 GM TUBE 1 APPLIC TOPICAL (00:04)
--- NOTE | 2025-01-16 02:03 | PC.NURSE ---
Spoke with Dr Atkins about patients last few BP having systolics >than 200, but no PRN until systolic BP 220. Nicardipine drip not resumed because patient is extremely sensitive to it and BP drops too low. Order received to change parameter for hydralazine to systolic >180.
[2025-01-16 04:00] LABS: Hematocrit 31.3 % (37.0-47.0); Hemoglobin 9.6 g/dL (12.0-15.0); Immature Granulocyte Percent A 0.1 % (0-0.5); Lymphocytes Absolute Auto 2.11 K/mm3 (0.9-3.2); Mean Corpuscular HGB Conc 30.7 g/dl (32-36); Mean Corpuscular Hemoglobin 24.9 pg (26-34); Mean Corpuscular Volume 81.3 fl (80-100); Nucleated Red Blood Cells Absolute Auto 0.000 K/mm3 (0.0-0.012); Nucleated Red Blood Cells Perc 0.0 % (0.0-0.2); Platelet Count Result 247 k/mm3 (150-375); Red Blood Count 3.85 M/mm3 (4.2-5.4); White Blood Count 7.0 K/mm3 (4.5-10.0)
[2025-01-16 04:20] LABS: Alanine Aminotransferase 11 U/L (6-35); Albumin Level 3.6 g/dL (3.5-5.1); Alkaline Phosphatase 234 U/L (38-126); Anion Gap 10 mmol/L (4-12); Aspartate Amino Transferase 31 U/L (14-36); Bilirubin,Total 0.5 mg/dL (0.2-1.3); Blood Urea Nitrogen 28 mg/dL (7-17); Calcium 9.7 mg/dL (8.4-10.2); Carbon Dioxide 26 mmol/L (22-30); Chloride 101 mmol/L (98-107); Estimated CRCL calculation 9 ml/min; Estimated Glomerular Filt Rate 6; Glucose 102 mg/dL (65-110); Magnesium 2.1 mg/dL (1.6-2.3); Potassium 4.3 mmol/L (3.4-5.0); Sodium 137 mmol/L (137-145); Total Protein 7.8 g/dL (6.3-8.2)
[2025-01-16 04:21] LABS: Iron 49 ug/dL (37-170)
[2025-01-16 04:30] LABS: Percent Iron Saturation 27 % (20-50)
[2025-01-16 04:32] LABS: Hemoglobin A1C 5.0 % (<5.7)
[2025-01-16] MEDS: ACETAMINOPHEN 325 MG TABLET 650 MG PO (04:36)
[2025-01-16 04:52] LABS: Thyroid Stimulating Hormone Reflex 3.530 uIU/mL (0.465-4.68)
[2025-01-16 05:30] LABS: Vitamin B12 853.0 pg/mL (239-931)
[2025-01-16] MEDS: APIXABAN 5 MG TABLET PO ×2 (08:16→17:25)
[2025-01-16] MEDS: PREGABALIN (*CRX) 75 MG CAPSULE PO (08:16)
[2025-01-16] MEDS: LOSARTAN POTASSIUM 100 MG TABLET PO (08:16)
[2025-01-16] MEDS: SEVELAMER CARBONATE 800 MG TABLET 1600 MG PO ×3 (08:16→17:25)
[2025-01-16] MEDS: LABETALOL HCL 100 MG TABLET 400 MG PO ×2 (08:19→20:36)
--- NOTE | 2025-01-16 08:58 | P.PNINT_ITS ---
Progress Note: A&P Assessment and Plan (1) Shortness of breath: Code(s): R06.02 - Shortness of breath Status: Acute Assessment and Plan: 01/15: Patient presented with acute onset of shortness of breath which woke her up from sleep and patient presented the ED in the early hours of 01/15 -proBNP > 30,000 -chest x-ray showed interstitial pulmonary edema, bilateral persistent pleural effusions -patient was placed on BiPAP -could be related to hypertensive urgency and/or end-stage renal disease. -patient currently being dialyzed -troponins are pending -EKG showed normal sinus rhythm, no ST-T change -currently on room air with adequate O2 sats, will be dialyzed again today (2) Hypertensive urgency: Code(s): I16.0 - Hypertensive urgency Status: Acute Assessment and Plan: Hypertensive urgency likely related to end-stage renal disease and volume overload -discussed with supervisor yard, her dry weight probably is not accurate, he will be adjusting her dry weight -patient being dialyzed as a right this note -will continue home antihypertensives, if blood pressures remain elevated will have Cardiology evaluate the patient (3) Elevated brain natriuretic peptide (BNP) level: Code(s): R79.89 - Other specified abnormal findings of blood chemistry Status: Acute Assessment and Plan: Elevated proBNP could be related to volume overload secondary to end-stage renal disease, patient does have diastolic dysfunction as seen on echocardiogram as under -will repeat echocardiogram 01/06/2024: Last echocardiogram -showed EF of 65-70%, moderate concentric increased left ventricular wall thickness, diastolic function was abnormal, E/e ratio 18 is elevated, Na mildly enlarged, mild mitral valve regurg, mild tricuspid valve regurg, mild pulmonary hypertension with RVSP of 45 mmHg (4) Diabetes mellitus type 2, insulin dependent: Code(s): E11.9 - Type 2 diabetes mellitus without complications; 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 Status: Chronic Assessment and Plan: Accu-Cheks and sliding scale insulin -blood sugars have been stable -patient takes Lantus at home, currently on hold as blood sugars are not too elevated (5) ESRD needing dialysis: Code(s): N18.6 - End stage renal disease; Z99.2 - Dependence on renal dialysis Status: Acute Assessment and Plan: End-stage renal disease on dialysis, patient was a peritoneal dialysis patient, had multiple episodes of peritonitis per Nephrology, peritoneal dialysis catheter has been changed, patient currently being dialyzed with a temporary tunneled dialysis catheter in the left chest wall -receives dialysis on Tuesdays, and -last dialysis was 01/14/2025, with 800 mL in fluid removal -discussed with Nephrology, he is going to be adjusting her dry weight -proBNP > 30,000 -targeting 3000 mL in fluid removal today, 01/15 -patient still makes urine, -further dialysis scheduling per Nephrology (6) Hand pain, right: Code(s): M79.641 - Pain in right hand Status: Acute Assessment and Plan: Patient has a history of right arm DVT for which she is on the Eliquis at home - swollen left right hand, could be related to volume overload. -obtain right upper extremity Doppler (7) Right carpal tunnel syndrome: Code(s): G56.01 - Carpal tunnel syndrome, right upper limb Status: Acute Assessment and Plan: Appreciate Neurology evaluation recommendations, continue pain pain control for now -will require nerve conduction study -she will have to be evaluated by hand surgeon Plan DVT prophylaxis: Continue Eliquis Stress ulcer prophylaxis: Not indicated Nutrition: Renal diet Code Status: Full code Critical Care Time Spent: 32 minutes May transfer out of the ICU Due to a high probability of clinically significant, life threatening deterioration, the patient required my highest level of preparedness to intervene emergently and I personally spent this critical care time directly and personally managing the patient. This critical care time included obtaining a history; examining the patient; pulse oximetry; ordering and review of studies; arranging urgent treatment with development of a management plan; evaluation of patient's response to treatment; frequent reassessment; and discussions with other providers. It was exclusive of separately billable procedures and treating other patients and teaching time. Please see Assessment and Plan section and the rest of the note for further information on patient assessment and treatment This dictation may have been done utilizing a voice recognition system. Attempts have been made to correct errors. However, there may be uncorrected grammatical, spelling, and recognitions errors present. Subjective Date/time seen: 01/16/25 08:58 Interval history: Reason for consult: Hypertensive urgency, shortness of breath, pulmonary vascular congestion 01/16/2025: Patient seen and examined the ICU, is sitting up on the side of the chair, states he feels much better. She denies any shortness of breath, chest pain, abdominal pain, nausea vomiting at this time. States the pain and numbness in the right arm is slightly improved, tramadol seems to have helped better with the pain. Blood pressures have been good through the night, this morning they blood pressures with just over 200, he started home meds including the amlodipine. Patient currently on room air Review of Systems Review of Systems: All systems reviewed & are unremarkable except as noted in HPI and below Exam Narrative: General: Pleasant female, in no respiratory distress, sitting up on the side of the bed HEENT:? Pupils equal reactive, sclerae is clear Neck:? Supple Respiratory:? Breath sounds are much more clear, no wheezing, adequate air entry Cardiac:? S1-S2 normal, regular rate and rhythm Abdomen:? Soft, nontender, nondistended, normoactive bowel so peritoneal dialysis catheter in place Extremities:? Right upper extremity swollen, especially the right hand and tender, right hand any Ayush wrap, warm with adequate pulses. Bilateral lower extremity edema, palpable pedal pulses Neuro:? Patient is awake, alert, oriented, answers to questions appropriately and follows simple commands in all extremities Skin:? No skin lesions noted Psych:? Normal mentation and affect Objective Data Vital Signs Vital Signs: Vital Signs - 24 hr 01/15/25 09:00 01/15/25 09:00 01/15/25 09:15 Temperature Pulse Rate 75 72 70 Respiratory Rate 17 Blood Pressure 238/94 H 238/94 H 218/146 H Pulse Oximetry 100 Oxygen Delivery Fraction of Inspired Oxygen 01/15/25 09:15 01/15/25 09:30 01/15/25 09:45 Temperature Pulse Rate 72 71 Respiratory Rate Blood Pressure 254/102 H 226/93 H Pulse Oximetry 100 Oxygen Delivery Room Air Fraction of Inspired Oxygen 01/15/25 10:00 01/15/25 10:00 01/15/25 10:00 Temperature Pulse Rate 68 70 72 Respiratory Rate 13 Blood Pressure 222/120 H 222/120 H Pulse Oximetry 100 Oxygen Delivery Fraction of Inspired Oxygen 01/15/25 10:15 01/15/25 10:21 01/15/25 10:30 Temperature 98.5 F Pulse Rate 69 73 Respiratory Rate Blood Pressure 261/114 H 236/117 H Pulse Oximetry Oxygen Delivery Fraction of Inspired Oxygen 01/15/25 10:45 01/15/25 11:00 01/15/25 11:00 Temperature Pulse Rate 70 64 71 Respiratory Rate 18 Blood Pressure 254/90 H 117/93 H 117/93 H Pulse Oximetry 98 Oxygen Delivery Fraction of Inspired Oxygen 01/15/25 11:15 01/15/25 11:22 01/15/25 11:30 Temperature Pulse Rate 66 73 63 Respiratory Rate 14 Blood Pressure 245/115 H 257/87 H Pulse Oximetry 100 Oxygen Delivery Room Air Fraction of Inspired Oxygen 01/15/25 11:41 01/15/25 11:42 01/15/25 11:45 Temperature Pulse Rate 71 66 72 Respiratory Rate Blood Pressure 257/87 H 262/112 H Pulse Oximetry Oxygen Delivery Fraction of Inspired Oxygen 01/15/25 12:00 01/15/25 12:00 01/15/25 12:00 Temperature 98.4 F Pulse Rate 68 69 Respiratory Rate 22 H Blood Pressure 220/133 H 220/133 H Pulse Oximetry 99 100 Oxygen Delivery Room Air Fraction of Inspired Oxygen 01/15/25 12:00 01/15/25 12:10 01/15/25 13:00 Temperature Pulse Rate 68 69 72 Respiratory Rate 18 21 H Blood Pressure 240/120 H 250/86 H Pulse Oximetry 99 100 Oxygen Delivery Fraction of Inspired Oxygen 01/15/25 13:43 01/15/25 13:46 01/15/25 14:00 Temperature 97.9 F Pulse Rate 76 76 Respiratory Rate 24 H Blood Pressure Pulse Oximetry 99 Oxygen Delivery Room Air Fraction of Inspired Oxygen 01/15/25 14:00 01/15/25 14:16 01/15/25 14:43 Temperature 97.8 F Pulse Rate 73 78 74 Respiratory Rate 20 Blood Pressure 192/77 H 234/82 H 113/77 Pulse Oximetry 100 Oxygen Delivery Fraction of Inspired Oxygen 01/15/25 15:00 01/15/25 15:00 01/15/25 15:30 Temperature Pulse Rate 74 72 67 Respiratory Rate 25 H Blood Pressure 120/80 120/80 155/79 H Pulse Oximetry 100 Oxygen Delivery Fraction of Inspired Oxygen 01/15/25 16:00 01/15/25 16:00 01/15/25 16:00 Temperature 98.3 F Pulse Rate 68 63 Respiratory Rate 24 H Blood Pressure 205/96 H Pulse Oximetry 100 100 Oxygen Delivery Room Air Fraction of Inspired Oxygen 01/15/25 17:00 01/15/25 17:00 01/15/25 17:30 Temperature Pulse Rate 76 75 72 Respiratory Rate 19 Blood Pressure 165/142 H 173/62 H 229/101 H Pulse Oximetry Oxygen Delivery Fraction of Inspired Oxygen 01/15/25 18:00 01/15/25 18:00 01/15/25 18:30 Temperature 98.4 F Pulse Rate 74 66 74 Respiratory Rate 20 Blood Pressure 180/69 H 177/79 H Pulse Oximetry 100 Oxygen Delivery Fraction of Inspired Oxygen 01/15/25 20:00 01/15/25 20:00 01/15/25 20:00 Temperature Pulse Rate 79 74 79 Respiratory Rate 21 H Blood Pressure 142/91 H 142/91 H Pulse Oximetry 99 Oxygen Delivery Fraction of Inspired Oxygen 01/15/25 20:00 01/15/25 20:15 01/15/25 20:30 Temperature Pulse Rate 73 75 Respiratory Rate Blood Pressure Pulse Oximetry 100 99 Oxygen Delivery Room Air Room Air Fraction of Inspired Oxygen 21 01/15/25 21:00 01/15/25 22:00 01/15/25 22:00 Temperature 98.4 F Pulse Rate 71 74 74 Respiratory Rate 20 17 Blood Pressure 194/64 H 177/76 H 177/76 H Pulse Oximetry 100 100 Oxygen Delivery Fraction of Inspired Oxygen 01/15/25 22:01 01/15/25 23:00 01/16/25 00:00 Temperature Pulse Rate 74 69 Respiratory Rate 17 Blood Pressure 172/74 H Pulse Oximetry 100 Oxygen Delivery Room Air Fraction of Inspired Oxygen 01/16/25 00:00 01/16/25 00:00 01/16/25 01:00 Temperature 97.5 F L Pulse Rate 64 71 63 Respiratory Rate 16 10 L Blood Pressure 169/40 H 199/86 H Pulse Oximetry 100 100 Oxygen Delivery Fraction of Inspired Oxygen 01/16/25 02:00 01/16/25 02:00 01/16/25 02:00 Temperature Pulse Rate 65 65 65 Respiratory Rate 12 Blood Pressure 208/86 H 208/86 H Pulse Oximetry 100 Oxygen Delivery Fraction of Inspired Oxygen 01/16/25 02:31 01/16/25 03:00 01/16/25 03:56 Temperature 97.4 F L 97.9 F Pulse Rate 68 66 Respiratory Rate 14 15 Blood Pressure 191/60 H 159/61 H 165/59 H Pulse Oximetry 100 100 Oxygen Delivery Fraction of Inspired Oxygen 01/16/25 04:00 01/16/25 04:00 01/16/25 04:00 Temperature Pulse Rate 63 66 Respiratory Rate Blood Pressure 165/59 H Pulse Oximetry Oxygen Delivery Room Air Fraction of Inspired Oxygen 01/16/25 05:00 01/16/25 06:00 01/16/25 06:00 Temperature Pulse Rate 73 68 65 Respiratory Rate 18 17 Blood Pressure 184/64 H 176/74 H Pulse Oximetry 100 100 Oxygen Delivery Fraction of Inspired Oxygen 01/16/25 06:00 01/16/25 06:53 01/16/25 08:00 Temperature 98.5 F Pulse Rate 65 69 70 Respiratory Rate 14 18 Blood Pressure 176/74 H 175/80 H 206/66 H Pulse Oximetry 100 100 Oxygen Delivery Fraction of Inspired Oxygen 01/16/25 08:19 Temperature Pulse Rate 70 Respiratory Rate Blood Pressure Pulse Oximetry Oxygen Delivery Fraction of Inspired Oxygen Intake/Output Intake/Output: Intake & Output 01/13/25 01/14/25 01/15/25 01/16/25 23:59 23:59 23:59 23:59 Intake Total 398.4 500 Output Total 3000 Balance -2601.6 500 Meds/Results Medications: Active Medications Generic Name Dose Route Start Last Admin Trade Name Freq PRN Reason Stop Dose Admin Acetaminophen 650 mg 01/15/25 06:47 01/16/25 04:36 Acetaminophen 325 Mg Tablet PO 650 mg Q4H PRN Administration Mild Pain (1-3) or Fever Hydrocodone Bitart/Acetaminophen 1 tab 01/15/25 13:37 01/15/25 20:20 Hydrocodone/Acetaminophen (*Crx) 5-325 Mg Tablet PO 1 tab Q6H PRN Administration Pain Rated 4-6 Amlodipine Besylate 10 mg 01/15/25 11:10 01/16/25 08:16 Amlodipine Besylate 10 Mg Tablet PO 10 mg DAILY CHAYO Administration Apixaban 5 mg 01/15/25 17:00 01/16/25 08:16 Apixaban 5 Mg Tablet PO 5 mg BID CHAYO Administration Dextrose 12.5 gm 01/15/25 09:29 Dextrose 50% 25 Gm/50 Ml Syringe IV PUSH PRN PRN Hypoglycemia Protocol Doxazosin Mesylate 2 mg 01/15/25 11:10 01/15/25 20:15 Doxazosin Mesylate 2 Mg Tablet PO 2 mg QHS CHAYO Administration Glucagon 1 mg 01/15/25 09:29 Glucagon For Inj 1 Mg Vial IM PRN PRN Hypoglycemia Protocol Glucose 15 gm 01/15/25 09:29 Glucose Oral Gel 15 Gm Of Glucse In 37.5 Gm Tube PO PRN PRN Hypoglycemia Protocol Hydralazine HCl 10 mg 01/15/25 10:29 01/16/25 02:11 Hydralazine Hcl 20 Mg/Ml Vial IV PUSH 10 mg Q4H PRN Administration Blood Pressure - High Dextrose 1,000 mls @ 100 mls/hr 01/15/25 09:29 Dextrose 5% 1,000 Ml IVPB PRN PRN Hypoglycemia Protocol Albumin Human 50 mls @ 999 mls/hr 01/15/25 10:42 Albutein IVPB 01/16/25 10:41 Q10M PRN HYPOTENSION Nicardipine/Sodium Chloride 20 mg in 200 mls @ 0 mls/hr 01/15/25 13:50 01/16/25 06:00 Cardene 20 Mg/200 Ml Ns IV CONT 0 mg/hr .Q0M CHAYO 0 mls/hr Protocol Titration Per Protocol Insulin Aspart 2 - 5 units 01/16/25 08:00 01/16/25 08:17 Insulin Aspart (*Bkc) 100 Units/Ml SUB-Q Not Given [facility] Protocol Insulin Aspart 1 - 2 units 01/16/25 21:00 Insulin Aspart (*Bkc) 100 Units/Ml SUB-Q HS [facility] Protocol Irbesartan 300 mg 01/16/25 17:00 Irbesartan 150 Mg Tablet PO Q24H CHAYO Labetalol HCl 400 mg 01/15/25 11:10 01/16/25 08:19 Labetalol Hcl 100 Mg Tablet PO 400 mg Q12HR CHAYO Administration Ondansetron HCl 4 mg 01/15/25 06:47 Ondansetron Inj 4 Mg/2 Ml Vial IV PUSH Q4H PRN Nausea Perflutren Lipid Microsphere 0 ml 01/15/25 09:28 Perflutren Lipid Microspheres 1.5 Ml Vial Diluted To 10 Ml Total Volume IV PUSH 01/18/25 09:28 ONCE PRN adequate visualization Protocol Pregabalin 75 mg 01/15/25 11:10 01/16/25 08:16 Pregabalin (*Crx) 75 Mg Capsule PO 75 mg DAILY CHAYO Administration Sevelamer Carbonate 1,600 mg 01/15/25 13:00 01/16/25 08:16 Sevelamer Carbonate 800 Mg Tablet PO 02/14/25 12:59 1,600 mg TID CHAYO Administration Tramadol HCl 50 mg 01/15/25 14:55 01/16/25 00:02 Tramadol Hcl (*Crx) 50 Mg Tablet PO 01/17/25 14:54 50 mg Q6H PRN Administration Pain Rated 4-6 Zinc Acetate/Diphenhydramine 1 applic 01/15/25 23:36 01/16/25 00:04 Diphenhydramine 1%/Zinc 0.1% Cream 30 Gm Tube TOPICAL 1 applic QID PRN Administration Itching Radiology Results: ITS Impressions Venous Doppler Study 01/15/25 11:36 IMPRESSION: 1. No right upper extremity DVT. Wrist X-Ray 01/15/25 18:16 Impression: No acute fracture or malalignment. Chest X-Ray 01/16/25 07:05 Impression: 1: Cardiomegaly with mild interstitial edema. 2: Small pleural effusions. Labs Labs: Laboratory Results - last 24 hr 01/15/25 01/15/25 01/15/25 09:09 11:31 11:41 WBC RBC Hgb Hct MCV MCH MCHC RDW Plt Count MPV Immature Gran % (Auto) Neut % (Auto) Lymph % (Auto) [place] % (Auto) Eos % (Auto) Baso % (Auto) Lymph # (Auto) [place] # (Auto) Eos # (Auto) Baso # (Auto) Abs Immat Gran (auto) Absolute Neuts (auto) Absolute Nucleated RBC Nucleated RBC % Sodium Potassium Chloride Carbon Dioxide Anion Gap BUN Creatinine Estim Creat Clear Calc Estimated GFR Glucose POC Capillary Glucose 123 H Hemoglobin A1c Calcium Phosphorus Magnesium Iron TIBC % Saturation Ferritin Total Bilirubin AST ALT Alkaline Phosphatase Troponin I < 0.012 < 0.012 Total Protein Albumin Vitamin B12 Folate TSH (Reflex) 01/15/25 01/15/25 01/16/25 16:54 20:24 03:53 WBC 7.0 RBC 3.85 L Hgb 9.6 L Hct 31.3 L MCV 81.3 MCH 24.9 L MCHC 30.7 L RDW 19.0 H Plt Count 247 MPV 9.3 Immature Gran % (Auto) 0.1 Neut % (Auto) 48.6 Lymph % (Auto) 30.1 [place] % (Auto) 7.7 Eos % (Auto) 12.9 H Baso % (Auto) 0.6 Lymph # (Auto) 2.11 [place] # (Auto) 0.5 Eos # (Auto) 0.9 H Baso # (Auto) 0.0 Abs Immat Gran (auto) 0.01 Absolute Neuts (auto) 3.4 Absolute Nucleated RBC 0.000 Nucleated RBC % 0.0 Sodium 137 Potassium 4.3 Chloride 101 Carbon Dioxide 26 Anion Gap 10 BUN 28 H Creatinine 7.85 H Estim Creat Clear Calc 9 Estimated GFR 6 L Glucose 102 POC Capillary Glucose 136 H 140 H Hemoglobin A1c 5.0 Calcium 9.7 Phosphorus 4.7 H Magnesium 2.1 Iron 49 TIBC 181 L % Saturation 27 Ferritin 726.00 H Total Bilirubin 0.5 AST 31 ALT 11 Alkaline Phosphatase 234 H Troponin I Total Protein 7.8 Albumin 3.6 Vitamin B12 853.0 Folate 5.9 TSH (Reflex) 3.530 01/16/25 07:17 WBC RBC Hgb Hct MCV MCH MCHC RDW Plt Count MPV Immature Gran % (Auto) Neut % (Auto) Lymph % (Auto) [place] % (Auto) Eos % (Auto) Baso % (Auto) Lymph # (Auto) [place] # (Auto) Eos # (Auto) Baso # (Auto) Abs Immat Gran (auto) Absolute Neuts (auto) Absolute Nucleated RBC Nucleated RBC % Sodium Potassium Chloride Carbon Dioxide Anion Gap BUN Creatinine Estim Creat Clear Calc Estimated GFR Glucose POC Capillary Glucose 109 H Hemoglobin A1c Calcium Phosphorus Magnesium Iron TIBC % Saturation Ferritin Total Bilirubin AST ALT Alkaline Phosphatase Troponin I Total Protein Albumin Vitamin B12 Folate TSH (Reflex)
--- NOTE | 2025-01-16 10:00 | P.PNNP_ITS ---
Progress Note: A&P Assessment and Plan (1) End stage chronic kidney disease: Code(s): N18.6 - End stage renal disease Status: Acute Assessment and Plan: Bakari has end-stage renal disease. She had been on peritoneal dialysis for a while and then got recurrent infections because of an infected catheter film. She has been on hemodialysis and has been doing well. She tolerated fluid removal yesterday with her dry ultrafiltration and her blood pressure did not drop very much. She will get dialysis today. Will remove more fluid. She will need a dry weight adjustment at the unit. (2) Respiratory failure: Code(s): J96.90 - Respiratory failure, unspecified, unspecified whether with hypoxia or hypercapnia Status: Acute Assessment and Plan: The patient is on room air now. (3) Hypertensive emergency: Code(s): I16.1 - Hypertensive emergency Status: Acute Assessment and Plan: I discussed with Dr. Ramos. Remove more fluid today. Will change losartan to irbesartan and give it at supper time since it comes off with dialysis (4) Hand pain, right: Code(s): M79.641 - Pain in right hand Status: Acute Assessment and Plan: unclear what is going on here. 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 (6) Dyslipidemia: Code(s): E78.5 - Hyperlipidemia, unspecified Status: Chronic Assessment and Plan: She is not on a statin. (7) Anemia: Code(s): D64.9 - Anemia, unspecified Status: Chronic Assessment and Plan: Hemoglobin is 8.7. We will need to give her some Epogen but will wait until blood pressure comes down some Subjective Date/time seen: 01/16/25 10:00 Interval history: Patient feels better today. Blood pressure still up and down from the 160s almost 200. At home she says her blood pressure runs in the 170s +/- 10 or 20, mostly plus Review of Systems Cardiovascular: Cardiovascular: Reports no additional cardiovascular complaints Respiratory: Respiratory: Reports no additional respiratory complaints Gastrointestinal: Gastrointestinal: Reports no additional gastrointestinal complaints Genitourinary: Genitourinary: Reports no additional female genitourinary complaints Exam Narrative: WDWN in NAD skin no rash head ncat lungs clear cor reg no rub abd BS+ nontender and soft ext no edema. Objective Data Vital Signs Vital Signs: Vital Signs - 24 hr 01/15/25 10:15 01/15/25 10:21 01/15/25 10:30 Temperature 98.5 F Pulse Rate 69 73 Respiratory Rate Blood Pressure 261/114 H 236/117 H Pulse Oximetry Oxygen Delivery Fraction of Inspired Oxygen 01/15/25 10:45 01/15/25 11:00 01/15/25 11:00 Temperature Pulse Rate 70 64 71 Respiratory Rate 18 Blood Pressure 254/90 H 117/93 H 117/93 H Pulse Oximetry 98 Oxygen Delivery Fraction of Inspired Oxygen 01/15/25 11:15 01/15/25 11:22 01/15/25 11:30 Temperature Pulse Rate 66 73 63 Respiratory Rate 14 Blood Pressure 245/115 H 257/87 H Pulse Oximetry 100 Oxygen Delivery Room Air Fraction of Inspired Oxygen 01/15/25 11:41 01/15/25 11:42 01/15/25 11:45 Temperature Pulse Rate 71 66 72 Respiratory Rate Blood Pressure 257/87 H 262/112 H Pulse Oximetry Oxygen Delivery Fraction of Inspired Oxygen 01/15/25 12:00 01/15/25 12:00 01/15/25 12:00 Temperature 98.4 F Pulse Rate 68 69 Respiratory Rate 22 H Blood Pressure 220/133 H 220/133 H Pulse Oximetry 99 100 Oxygen Delivery Room Air Fraction of Inspired Oxygen 01/15/25 12:00 01/15/25 12:10 01/15/25 13:00 Temperature Pulse Rate 68 69 72 Respiratory Rate 18 21 H Blood Pressure 240/120 H 250/86 H Pulse Oximetry 99 100 Oxygen Delivery Fraction of Inspired Oxygen 01/15/25 13:43 01/15/25 13:46 01/15/25 14:00 Temperature 97.9 F Pulse Rate 76 76 Respiratory Rate 24 H Blood Pressure Pulse Oximetry 99 Oxygen Delivery Room Air Fraction of Inspired Oxygen 01/15/25 14:00 01/15/25 14:16 01/15/25 14:43 Temperature 97.8 F Pulse Rate 73 78 74 Respiratory Rate 20 Blood Pressure 192/77 H 234/82 H 113/77 Pulse Oximetry 100 Oxygen Delivery Fraction of Inspired Oxygen 01/15/25 15:00 01/15/25 15:00 01/15/25 15:30 Temperature Pulse Rate 74 72 67 Respiratory Rate 25 H Blood Pressure 120/80 120/80 155/79 H Pulse Oximetry 100 Oxygen Delivery Fraction of Inspired Oxygen 01/15/25 16:00 01/15/25 16:00 01/15/25 16:00 Temperature 98.3 F Pulse Rate 68 63 Respiratory Rate 24 H Blood Pressure 205/96 H Pulse Oximetry 100 100 Oxygen Delivery Room Air Fraction of Inspired Oxygen 01/15/25 17:00 01/15/25 17:00 01/15/25 17:30 Temperature Pulse Rate 76 75 72 Respiratory Rate 19 Blood Pressure 165/142 H 173/62 H 229/101 H Pulse Oximetry Oxygen Delivery Fraction of Inspired Oxygen 01/15/25 18:00 01/15/25 18:00 01/15/25 18:30 Temperature 98.4 F Pulse Rate 74 66 74 Respiratory Rate 20 Blood Pressure 180/69 H 177/79 H Pulse Oximetry 100 Oxygen Delivery Fraction of Inspired Oxygen 01/15/25 20:00 01/15/25 20:00 01/15/25 20:00 Temperature Pulse Rate 79 74 79 Respiratory Rate 21 H Blood Pressure 142/91 H 142/91 H Pulse Oximetry 99 Oxygen Delivery Fraction of Inspired Oxygen 01/15/25 20:00 01/15/25 20:15 01/15/25 20:30 Temperature Pulse Rate 73 75 Respiratory Rate Blood Pressure Pulse Oximetry 100 99 Oxygen Delivery Room Air Room Air Fraction of Inspired Oxygen 21 01/15/25 21:00 01/15/25 22:00 01/15/25 22:00 Temperature 98.4 F Pulse Rate 71 74 74 Respiratory Rate 20 17 Blood Pressure 194/64 H 177/76 H 177/76 H Pulse Oximetry 100 100 Oxygen Delivery Fraction of Inspired Oxygen 01/15/25 22:01 01/15/25 23:00 01/16/25 00:00 Temperature Pulse Rate 74 69 Respiratory Rate 17 Blood Pressure 172/74 H Pulse Oximetry 100 Oxygen Delivery Room Air Fraction of Inspired Oxygen 01/16/25 00:00 01/16/25 00:00 01/16/25 01:00 Temperature 97.5 F L Pulse Rate 64 71 63 Respiratory Rate 16 10 L Blood Pressure 169/40 H 199/86 H Pulse Oximetry 100 100 Oxygen Delivery Fraction of Inspired Oxygen 01/16/25 02:00 01/16/25 02:00 01/16/25 02:00 Temperature Pulse Rate 65 65 65 Respiratory Rate 12 Blood Pressure 208/86 H 208/86 H Pulse Oximetry 100 Oxygen Delivery Fraction of Inspired Oxygen 01/16/25 02:31 01/16/25 03:00 01/16/25 03:56 Temperature 97.4 F L 97.9 F Pulse Rate 68 66 Respiratory Rate 14 15 Blood Pressure 191/60 H 159/61 H 165/59 H Pulse Oximetry 100 100 Oxygen Delivery Fraction of Inspired Oxygen 01/16/25 04:00 01/16/25 04:00 01/16/25 04:00 Temperature Pulse Rate 63 66 Respiratory Rate Blood Pressure 165/59 H Pulse Oximetry Oxygen Delivery Room Air Fraction of Inspired Oxygen 01/16/25 05:00 01/16/25 06:00 01/16/25 06:00 Temperature Pulse Rate 73 68 65 Respiratory Rate 18 17 Blood Pressure 184/64 H 176/74 H Pulse Oximetry 100 100 Oxygen Delivery Fraction of Inspired Oxygen 01/16/25 06:00 01/16/25 06:53 01/16/25 08:00 Temperature 98.5 F Pulse Rate 65 69 70 Respiratory Rate 14 18 Blood Pressure 176/74 H 175/80 H 206/66 H Pulse Oximetry 100 100 Oxygen Delivery Fraction of Inspired Oxygen 01/16/25 08:19 01/16/25 09:00 Temperature 97.5 F L Pulse Rate 70 71 Respiratory Rate 17 Blood Pressure 158/90 H Pulse Oximetry 99 Oxygen Delivery Fraction of Inspired Oxygen Intake/Output Intake/Output: Intake & Output 01/13/25 01/14/25 01/15/25 01/16/25 23:59 23:59 23:59 23:59 Intake Total 398.4 760 Output Total 3000 Balance -2601.6 760 Meds/Results Medications: Active Medications Generic Name Dose Route Start Last Admin Trade Name Freq PRN Reason Stop Dose Admin Acetaminophen 650 mg 01/15/25 06:47 01/16/25 04:36 Acetaminophen 325 Mg Tablet PO 650 mg Q4H PRN Administration Mild Pain (1-3) or Fever Hydrocodone Bitart/Acetaminophen 1 tab 01/15/25 13:37 01/15/25 20:20 Hydrocodone/Acetaminophen (*Crx) 5-325 Mg Tablet PO 1 tab Q6H PRN Administration Pain Rated 4-6 Amlodipine Besylate 10 mg 01/15/25 11:10 01/16/25 08:16 Amlodipine Besylate 10 Mg Tablet PO 10 mg DAILY CHAYO Administration Apixaban 5 mg 01/15/25 17:00 01/16/25 08:16 Apixaban 5 Mg Tablet PO 5 mg BID CHAYO Administration Dextrose 12.5 gm 01/15/25 09:29 Dextrose 50% 25 Gm/50 Ml Syringe IV PUSH PRN PRN Hypoglycemia Protocol Doxazosin Mesylate 2 mg 01/15/25 11:10 01/15/25 20:15 Doxazosin Mesylate 2 Mg Tablet PO 2 mg QHS CHAYO Administration Glucagon 1 mg 01/15/25 09:29 Glucagon For Inj 1 Mg Vial IM PRN PRN Hypoglycemia Protocol Glucose 15 gm 01/15/25 09:29 Glucose Oral Gel 15 Gm Of Glucse In 37.5 Gm Tube PO PRN PRN Hypoglycemia Protocol Hydralazine HCl 10 mg 01/15/25 10:29 01/16/25 02:11 Hydralazine Hcl 20 Mg/Ml Vial IV PUSH 10 mg Q4H PRN Administration Blood Pressure - High Dextrose 1,000 mls @ 100 mls/hr 01/15/25 09:29 Dextrose 5% 1,000 Ml IVPB PRN PRN Hypoglycemia Protocol Albumin Human 50 mls @ 999 mls/hr 01/15/25 10:42 Albutein IVPB 01/16/25 10:41 Q10M PRN HYPOTENSION Nicardipine/Sodium Chloride 20 mg in 200 mls @ 0 mls/hr 01/15/25 13:50 01/16/25 06:00 Cardene 20 Mg/200 Ml Ns IV CONT 0 mg/hr .Q0M CHAYO 0 mls/hr Protocol Titration Per Protocol Insulin Aspart 2 - 5 units 01/16/25 08:00 01/16/25 08:17 Insulin Aspart (*Bkc) 100 Units/Ml SUB-Q Not Given TIDWM [facility] Protocol Insulin Aspart 1 - 2 units 01/16/25 21:00 Insulin Aspart (*Bkc) 100 Units/Ml SUB-Q HS [facility] Protocol Irbesartan 300 mg 01/16/25 17:00 Irbesartan 150 Mg Tablet PO Q24H [facility] Labetalol HCl 400 mg 01/15/25 11:10 01/16/25 08:19 Labetalol Hcl 100 Mg Tablet PO 400 mg Q12HR CHAYO Administration Ondansetron HCl 4 mg 01/15/25 06:47 Ondansetron Inj 4 Mg/2 Ml Vial IV PUSH Q4H PRN Nausea Perflutren Lipid Microsphere 0 ml 01/15/25 09:28 Perflutren Lipid Microspheres 1.5 Ml Vial Diluted To 10 Ml Total Volume IV PUSH 01/18/25 09:28 ONCE PRN adequate visualization Protocol Pregabalin 75 mg 01/15/25 11:10 01/16/25 08:16 Pregabalin (*Crx) 75 Mg Capsule PO 75 mg DAILY CHAYO Administration Sevelamer Carbonate 1,600 mg 01/15/25 13:00 01/16/25 08:16 Sevelamer Carbonate 800 Mg Tablet PO 02/14/25 12:59 1,600 mg TID CHAYO Administration Tramadol HCl 50 mg 01/15/25 14:55 01/16/25 00:02 Tramadol Hcl (*Crx) 50 Mg Tablet PO 01/17/25 14:54 50 mg Q6H PRN Administration Pain Rated 4-6 Zinc Acetate/Diphenhydramine 1 applic 01/15/25 23:36 01/16/25 00:04 Diphenhydramine 1%/Zinc 0.1% Cream 30 Gm Tube TOPICAL 1 applic QID PRN Administration Itching Radiology Results: ITS Impressions Venous Doppler Study 01/15/25 11:36 IMPRESSION: 1. No right upper extremity DVT. Wrist X-Ray 01/15/25 18:16 Impression: No acute fracture or malalignment. Chest X-Ray 01/16/25 07:05 Impression: 1: Cardiomegaly with mild interstitial edema. 2: Small pleural effusions. Labs Labs: Laboratory Results - last 24 hr 01/15/25 01/15/25 01/15/25 11:31 11:41 16:54 WBC RBC Hgb Hct MCV MCH MCHC RDW Plt Count MPV Immature Gran % (Auto) Neut % (Auto) Lymph % (Auto) [place] % (Auto) Eos % (Auto) Baso % (Auto) Lymph # (Auto) [place] # (Auto) Eos # (Auto) Baso # (Auto) Abs Immat Gran (auto) Absolute Neuts (auto) Absolute Nucleated RBC Nucleated RBC % Sodium Potassium Chloride Carbon Dioxide Anion Gap BUN Creatinine Estim Creat Clear Calc Estimated GFR Glucose POC Capillary Glucose 123 H 136 H Hemoglobin A1c Calcium Phosphorus Magnesium Iron TIBC % Saturation Ferritin Total Bilirubin AST ALT Alkaline Phosphatase Troponin I < 0.012 Total Protein Albumin Vitamin B12 Folate TSH (Reflex) 01/15/25 01/16/25 01/16/25 20:24 03:53 07:17 WBC 7.0 RBC 3.85 L Hgb 9.6 L Hct 31.3 L MCV 81.3 MCH 24.9 L MCHC 30.7 L RDW 19.0 H Plt Count 247 MPV 9.3 Immature Gran % (Auto) 0.1 Neut % (Auto) 48.6 Lymph % (Auto) 30.1 [place] % (Auto) 7.7 Eos % (Auto) 12.9 H Baso % (Auto) 0.6 Lymph # (Auto) 2.11 [place] # (Auto) 0.5 Eos # (Auto) 0.9 H Baso # (Auto) 0.0 Abs Immat Gran (auto) 0.01 Absolute Neuts (auto) 3.4 Absolute Nucleated RBC 0.000 Nucleated RBC % 0.0 Sodium 137 Potassium 4.3 Chloride 101 Carbon Dioxide 26 Anion Gap 10 BUN 28 H Creatinine 7.85 H Estim Creat Clear Calc 9 Estimated GFR 6 L Glucose 102 POC Capillary Glucose 140 H 109 H Hemoglobin A1c 5.0 Calcium 9.7 Phosphorus 4.7 H Magnesium 2.1 Iron 49 TIBC 181 L % Saturation 27 Ferritin 726.00 H Total Bilirubin 0.5 AST 31 ALT 11 Alkaline Phosphatase 234 H Troponin I Total Protein 7.8 Albumin 3.6 Vitamin B12 853.0 Folate 5.9 TSH (Reflex) 3.530
[2025-01-16] MEDS: LORATADINE 10 MG TABLET PO (11:08)
[2025-01-16] MEDS: HYDROcodone/acetaminophen (*CRX) 5-325 MG TABLET 1 TAB PO (15:50)
[2025-01-16] MEDS: IRBESARTAN 150 MG TABLET 300 MG PO (17:25)
[2025-01-16] MEDS: DOXAZOSIN MESYLATE 2 MG TABLET PO (20:36)
[2025-01-17] VITALS (13 sets, daily range): BP systolic 166–197; BP diastolic 60–85; PULSE 64–73; RESP 14–20; TEMP 36.3–36.7; O2SAT 97–100
[2025-01-17 04:43] LABS: Hematocrit 30.4 % (37.0-47.0); Hemoglobin 9.2 g/dL (12.0-15.0); Mean Corpuscular HGB Conc 30.3 g/dl (32-36); Mean Corpuscular Hemoglobin 24.7 pg (26-34); Mean Corpuscular Volume 81.7 fl (80-100); Platelet Count Result 233 k/mm3 (150-375); Red Blood Count 3.72 M/mm3 (4.2-5.4); White Blood Count 7.3 K/mm3 (4.5-10.0)
[2025-01-17 05:10] LABS: Alanine Aminotransferase 11 U/L (6-35); Albumin Level 3.7 g/dL (3.5-5.1); Alkaline Phosphatase 211 U/L (38-126); Anion Gap 10 mmol/L (4-12); Aspartate Amino Transferase 23 U/L (14-36); Bilirubin,Total 0.5 mg/dL (0.2-1.3); Blood Urea Nitrogen 26 mg/dL (7-17); Calcium 9.4 mg/dL (8.4-10.2); Carbon Dioxide 28 mmol/L (22-30); Chloride 98 mmol/L (98-107); Estimated CRCL calculation 9 ml/min; Estimated Glomerular Filt Rate 6; Glucose 114 mg/dL (65-110); Magnesium 2.1 mg/dL (1.6-2.3); Potassium 4.1 mmol/L (3.4-5.0); Sodium 136 mmol/L (137-145); Total Protein 7.8 g/dL (6.3-8.2)
[2025-01-17] MEDS: traMADol HCL (*CRX) 50 MG TABLET PO ×2 (05:26→14:44)
[2025-01-17] MEDS: LABETALOL HCL 100 MG TABLET 400 MG PO ×2 (08:24→20:42)
[2025-01-17] MEDS: SEVELAMER CARBONATE 800 MG TABLET 1600 MG PO ×3 (08:24→16:52)
[2025-01-17] MEDS: PREGABALIN (*CRX) 75 MG CAPSULE PO (08:24)
[2025-01-17] MEDS: APIXABAN 5 MG TABLET PO ×2 (08:24→16:52)
--- NOTE | 2025-01-17 08:49 | P.PNIM_ITS ---
Progress Note: A&P Assessment and Plan (1) Shortness of breath: Code(s): R06.02 - Shortness of breath Status: Acute Assessment and Plan: 01/15: Patient presented with acute onset of shortness of breath which woke her up from sleep and patient presented the ED in the early hours of 01/15 -proBNP > 30,000 and chest x-ray showed interstitial pulmonary edema, bilateral persistent pleural effusions -patient was placed on BiPAP -pulmonary edema secondary to volume overload from end-stage renal disease and hypertensive urgency -since then patient has been dialyzed couple of times. -hypoxia has resolved and patient is now where -EKG showed normal sinus rhythm, no ST-T change (2) Hypertensive urgency: Code(s): I16.0 - Hypertensive urgency Status: Acute Assessment and Plan: Hypertensive urgency likely related to end-stage renal disease and volume overlo ad Overall has improved Continue dialysis per Nephrology Continue current meds including amlodipine Cardura Avapro labetalol Continue p.r.n. hydralazine. Change hydralazine to 20 mg Nephrology has ordered additional workup including aldosterone level metanephrine levels and renin level (3) Elevated brain natriuretic peptide (BNP) level: Code(s): R79.89 - Other specified abnormal findings of blood chemistry Status: Acute Assessment and Plan: Elevated proBNP could be related to volume overload secondary to end-stage renal disease, patient does have diastolic dysfunction as seen on echocardiogram as under Echocardiogram 1. Complete two-dimensional, color flow and Doppler transthoracic echocardiogram is performed. 2. Left ventricular chamber dimension is normal. 3. Left ventricular systolic function is normal, estimated at 55-60. 4. There is moderate concentric increased left ventricular wall thickness. 5. The left ventricular diastolic function is abnormal. 6. E/e' 21 is elevated. 7. Left atrial chamber dimension is mildly enlarged. 8. There is mild mitral valve regurgitation. 9. There is mild tricuspid valve regurgitation. 10. No pulmonary hypertension, estimated pulmonary arterial systolic pressure is 32 mmHg. 11. There is trace pulmonic regurgitation. 12. There is trace to small circumferential pericardial effusion. (4) Diabetes mellitus type 2, insulin dependent: Code(s): E11.9 - Type 2 diabetes mellitus without complications; Z79.4 - tank terminal gauger (current) use of insulin Status: Chronic Assessment and Plan: Accu-Cheks and sliding scale insulin -blood sugars have been stable -patient takes Lantus at home, currently on hold as blood sugars are not too elevated (5) ESRD needing dialysis: Code(s): N18.6 - End stage renal disease; Z99.2 - Dependence on renal dialysis Status: Acute Assessment and Plan: End-stage renal disease on dialysis, patient was a peritoneal dialysis patient, had multiple episodes of peritonitis per Nephrology, peritoneal dialysis catheter has been changed, patient currently being dialyzed with a temporary tunneled dialysis catheter in the left chest wall -normally receives dialysis on Tuesdays, and Thursday -patient received dialysis on last 2 days. -further dialysis per Nephrology (6) Hand pain, right: Code(s): M79.641 - Pain in right hand Status: Acute Assessment and Plan: Patient has a history of right arm DVT for which she is on the Eliquis at home - swollen left right hand, could be related to volume overload. Right upper extremity Doppler was negative for DVT Wrist x-ray showed no fracture or misalignment (7) Right carpal tunnel syndrome: Code(s): G56.01 - Carpal tunnel syndrome, right upper limb Status: Acute Assessment and Plan: Appreciate Neurology evaluation recommendations, continue pain pain control for now -will require nerve conduction study -she will have to be evaluated by hand surgeon as an outpatient Plan DVT prophylaxis: Continue Eliquis Stress ulcer prophylaxis: Not indicated Nutrition: Renal diet Code Status: Full code Transferred to [facility] status Subjective Date/time seen: 01/17/25 Patient was dialyzed yesterday and did well and this morning she states she feels better and is on room air. She states she does not want to get another dialysis session today because yesterday during dialysis she had some cramps in her hands and feels she is being over dialyzed at this point. Her blood pressure still is elevated overnight. Patient denies fever, chest pain, shortness of breath, cough, nausea vomiting, abdominal pain,, diarrhea, headache or constipation. All other systems were reviewed and were negative She is on room air. She is afebrile. Interval history: Reason for consult: Hypertensive urgency, shortness of breath, pulmonary vascular congestion Review of Systems Review of Systems: All systems reviewed & are unremarkable except as noted in HPI and below Exam Narrative: General: Pleasant female, in no respiratory distress, sitting up on the side of the bed HEENT:? Pupils equal reactive, sclerae is clear Neck:? Supple Respiratory:? Breath sounds are much more clear, no wheezing, adequate air entry few crackles at the bases Cardiac:? S1-S2 normal, regular rate and rhythm Abdomen:? Soft, nontender, nondistended, normoactive bowel so peritoneal dialysis catheter in place Extremities:? Right upper extremity swollen, especially the right hand and tender, right hand any Ayush wrap, warm with adequate pulses. Minimal Bilateral lower extremity edema, palpable pedal pulses Neuro:? Patient is awake, alert, oriented, answers to questions appropriately and follows simple commands in all extremities AO x3 Skin:? No skin lesions noted Psych:? Normal mentation and affect Objective Data Vital Signs Vital Signs: Vital Signs - 24 hr 01/16/25 09:00 01/16/25 10:00 01/16/25 10:00 Temperature 36.4 C L Pulse Rate 71 65 65 Respiratory Rate 17 Blood Pressure 158/90 H 196/72 H Pulse Oximetry 99 Oxygen Delivery 01/16/25 10:00 01/16/25 10:57 01/16/25 12:00 Temperature 36.5 C 36.3 C L 36.3 C L Pulse Rate 65 73 70 Respiratory Rate 21 H 21 H 18 Blood Pressure 196/72 H 142/69 H 208/95 H Pulse Oximetry 100 100 100 Oxygen Delivery 01/16/25 12:00 01/16/25 12:00 01/16/25 13:00 Temperature 36.6 C Pulse Rate 74 69 Respiratory Rate 15 Blood Pressure 161/66 H Pulse Oximetry 100 Oxygen Delivery Room Air 01/16/25 13:00 01/16/25 13:15 01/16/25 13:30 Temperature Pulse Rate 67 63 69 Respiratory Rate 22 H Blood Pressure 161/66 H 170/70 H 151/66 H Pulse Oximetry Oxygen Delivery 01/16/25 13:45 01/16/25 14:00 01/16/25 14:00 Temperature Pulse Rate 69 62 62 Respiratory Rate 17 Blood Pressure 161/60 H 163/59 H 163/59 H Pulse Oximetry 100 Oxygen Delivery 01/16/25 14:00 01/16/25 14:15 01/16/25 14:30 Temperature Pulse Rate 65 67 72 Respiratory Rate Blood Pressure 166/66 H 164/73 H Pulse Oximetry Oxygen Delivery 01/16/25 14:45 01/16/25 14:58 01/16/25 15:00 Temperature Pulse Rate 65 71 70 Respiratory Rate 25 H Blood Pressure 173/68 H 173/68 H 173/68 H Pulse Oximetry 100 Oxygen Delivery 01/16/25 15:15 01/16/25 15:25 01/16/25 15:30 Temperature 36.6 C Pulse Rate 74 78 70 Respiratory Rate 20 Blood Pressure 142/88 H 154/93 H 186/79 H Pulse Oximetry 100 Oxygen Delivery 01/16/25 15:58 01/16/25 16:00 01/16/25 16:00 Temperature Pulse Rate 87 87 Respiratory Rate 22 H Blood Pressure 186/153 H Pulse Oximetry Oxygen Delivery Room Air 01/16/25 18:00 01/16/25 20:00 01/16/25 20:00 Temperature 36.5 C Pulse Rate 73 72 Respiratory Rate 18 Blood Pressure 156/55 H Pulse Oximetry 98 Oxygen Delivery Room Air 01/16/25 20:00 01/16/25 20:36 01/16/25 22:00 Temperature Pulse Rate 71 71 72 Respiratory Rate Blood Pressure Pulse Oximetry Oxygen Delivery 01/17/25 00:00 01/17/25 00:00 01/17/25 00:00 Temperature 36.7 C Pulse Rate 72 70 Respiratory Rate 20 Blood Pressure 185/60 H Pulse Oximetry 97 Oxygen Delivery Room Air 01/17/25 02:00 01/17/25 04:00 01/17/25 04:00 Temperature 36.7 C Pulse Rate 69 64 Respiratory Rate 14 Blood Pressure 192/68 H Pulse Oximetry 97 Oxygen Delivery Room Air 01/17/25 04:00 01/17/25 06:00 01/17/25 08:00 Temperature 36.6 C Pulse Rate 64 72 70 Respiratory Rate 15 Blood Pressure 171/85 H Pulse Oximetry 100 Oxygen Delivery 01/17/25 08:00 01/17/25 08:00 01/17/25 08:24 Temperature Pulse Rate 73 67 73 Respiratory Rate 15 Blood Pressure Pulse Oximetry 100 Oxygen Delivery Room Air Intake/Output Intake/Output: Intake & Output 01/14/25 01/15/25 01/16/25 01/17/25 23:59 23:59 23:59 23:59 Intake Total 398.4 1400 300 Output Total 3000 1660 Balance -2601.6 -260 300 Meds/Results Medications: Active Medications Generic Name Dose Route Start Last Admin Trade Name Freq PRN Reason Stop Dose Admin Acetaminophen 650 mg 01/15/25 06:47 01/16/25 04:36 Acetaminophen 325 Mg Tablet PO 650 mg Q4H PRN Administration Mild Pain (1-3) or Fever Hydrocodone Bitart/Acetaminophen 1 tab 01/15/25 13:37 01/16/25 15:50 Hydrocodone/Acetaminophen (*Crx) 5-325 Mg Tablet PO 1 tab Q6H PRN Administration Pain Rated 4-6 Amlodipine Besylate 10 mg 01/15/25 11:10 01/17/25 08:24 Amlodipine Besylate 10 Mg Tablet PO 10 mg DAILY CHAYO Administration Apixaban 5 mg 01/15/25 17:00 01/17/25 08:24 Apixaban 5 Mg Tablet PO 5 mg BID CHAYO Administration Dextrose 12.5 gm 01/15/25 09:29 Dextrose 50% 25 Gm/50 Ml Syringe IV PUSH PRN PRN Hypoglycemia Protocol Doxazosin Mesylate 2 mg 01/15/25 11:10 01/16/25 20:36 Doxazosin Mesylate 2 Mg Tablet PO 2 mg QHS CHAYO Administration Glucagon 1 mg 01/15/25 09:29 Glucagon For Inj 1 Mg Vial IM PRN PRN Hypoglycemia Protocol Glucose 15 gm 01/15/25 09:29 Glucose Oral Gel 15 Gm Of Glucse In 37.5 Gm Tube PO PRN PRN Hypoglycemia Protocol Hydralazine HCl 20 mg 01/17/25 08:13 Hydralazine Hcl 20 Mg/Ml Vial IV PUSH Q4H PRN Blood Pressure - High Hydroxyzine HCl 25 mg 01/16/25 20:35 01/16/25 20:52 Hydroxyzine Hcl 25 Mg Tablet PO 25 mg Q6H PRN Administration Itching Dextrose 1,000 mls @ 100 mls/hr 01/15/25 09:29 Dextrose 5% 1,000 Ml IVPB PRN PRN Hypoglycemia Protocol Insulin Aspart 2 - 5 units 01/16/25 08:00 01/17/25 07:54 Insulin Aspart (*Bkc) 100 Units/Ml SUB-Q Not Given TIDWM CHAYO Protocol Insulin Aspart 1 - 2 units 01/16/25 21:00 01/16/25 20:37 Insulin Aspart (*Bkc) 100 Units/Ml SUB-Q Not Given HS CHAYO Protocol Irbesartan 300 mg 01/16/25 17:00 01/16/25 17:25 Irbesartan 150 Mg Tablet PO 300 mg Q24H CHAYO Administration Labetalol HCl 400 mg 01/15/25 11:10 01/17/25 08:24 Labetalol Hcl 100 Mg Tablet PO 400 mg Q12HR CHAYO Administration Ondansetron HCl 4 mg 01/15/25 06:47 Ondansetron Inj 4 Mg/2 Ml Vial IV PUSH Q4H PRN Nausea Perflutren Lipid Microsphere 0 ml 01/15/25 09:28 Perflutren Lipid Microspheres 1.5 Ml Vial Diluted To 10 Ml Total Volume IV PUSH 01/18/25 09:28 ONCE PRN adequate visualization Protocol Pregabalin 75 mg 01/15/25 11:10 01/17/25 08:24 Pregabalin (*Crx) 75 Mg Capsule PO 75 mg DAILY CHAYO Administration Sevelamer Carbonate 1,600 mg 01/15/25 13:00 01/17/25 08:24 Sevelamer Carbonate 800 Mg Tablet PO 02/14/25 12:59 1,600 mg TID CHAYO Administration Tramadol HCl 50 mg 01/15/25 14:55 01/17/25 05:26 Tramadol Hcl (*Crx) 50 Mg Tablet PO 01/17/25 14:54 50 mg Q6H PRN Administration Pain Rated 4-6 Zinc Acetate/Diphenhydramine 1 applic 01/15/25 23:36 01/16/25 00:04 Diphenhydramine 1%/Zinc 0.1% Cream 30 Gm Tube TOPICAL 1 applic QID PRN Administration Itching Radiology Results: ITS Impressions Venous Doppler Study 01/15/25 11:36 IMPRESSION: 1. No right upper extremity DVT. Wrist X-Ray 01/15/25 18:16 Impression: No acute fracture or malalignment. Chest X-Ray 01/16/25 07:05 Impression: 1: Cardiomegaly with mild interstitial edema. 2: Small pleural effusions. Labs Labs: Laboratory Results - last 24 hr 01/16/25 01/16/25 01/16/25 11:15 17:23 20:31 WBC RBC Hgb Hct MCV MCH MCHC RDW Plt Count MPV Sodium Potassium Chloride Carbon Dioxide Anion Gap BUN Creatinine Estim Creat Clear Calc Estimated GFR Glucose POC Capillary Glucose 176 H 131 H 128 H Calcium Phosphorus Magnesium Total Bilirubin AST ALT Alkaline Phosphatase Total Protein Albumin 01/17/25 01/17/25 04:32 07:44 WBC 7.3 RBC 3.72 L Hgb 9.2 L Hct 30.4 L MCV 81.7 MCH 24.7 L MCHC 30.3 L RDW 18.6 H Plt Count 233 MPV 9.3 Sodium 136 L Potassium 4.1 Chloride 98 Carbon Dioxide 28 Anion Gap 10 BUN 26 H Creatinine 7.21 H Estim Creat Clear Calc 9 Estimated GFR 6 L Glucose 114 H POC Capillary Glucose 125 H Calcium 9.4 Phosphorus 4.2 Magnesium 2.1 Total Bilirubin 0.5 AST 23 ALT 11 Alkaline Phosphatase 211 H Total Protein 7.8 Albumin 3.7
--- NOTE | 2025-01-17 10:59 | PM.PNNEP ---
Progress Note: A&P Assessment and Plan (1) End stage chronic kidney disease: Code(s): N18.6 - End stage renal disease Status: Acute Assessment and Plan: Bakari has end-stage renal disease. She had been on peritoneal dialysis for a while and then got recurrent infections because of an infected catheter film. She has been on hemodialysis and has been doing well. We got about as much fluid as we can get off yesterday. Will do another dialysis tomorrow She will probably need a dry weight adjustment at the unit (2) Respiratory failure: Code(s): J96.90 - Respiratory failure, unspecified, unspecified whether with hypoxia or hypercapnia Status: Acute Assessment and Plan: The patient is on room air now. (3) Hypertensive emergency: Code(s): I16.1 - Hypertensive emergency Status: Acute Assessment and Plan: I discussed with Dr. aRmos. Continue adjustments of her blood pressure meds. Irbesartan just started yesterday If still high tomorrow we can change the amlodipine to nifedipine. (4) Hand pain, right: Code(s): M79.641 - Pain in right hand Status: Acute Assessment and Plan: unclear what is going on here. Venous Dopplers negative in the right upper extremity Neuro saw the patient did feels that his carpal tunnel. (5) Diabetic retinopathy associated with type 2 diabetes mellitus: Code(s): E11.319 - Type 2 diabetes mellitus with unspecified diabetic retinopathy without macular edema Status: Acute Assessment and Plan: She is on a sliding scale insulin plus Accu-Cheks. Hospitalist/compliance engineer products to manage this. (6) Dyslipidemia: Code(s): E78.5 - Hyperlipidemia, unspecified Status: Chronic Assessment and Plan: She is not on a statin. (7) Anemia: Code(s): D64.9 - Anemia, unspecified Status: Chronic Assessment and Plan: Hemoglobin is up to 9.2. Will get EPO tomorrow Subjective Date/time seen: 01/17/25 10:59 Interval history: Patient feels okay today. She still has right hand pain. Neurology saw the patient feels that she has carpal tunnel so a split has been placed. She is getting some physical therapy as well. Yesterday about 2 hours into the dialysis the patient started cramping and signed off early. Exam Narrative: WDWN in NAD skin no rash head ncat lungs clear cor reg no rub abd BS+ nontender and soft ext no edema in the feet. Right hand mildly swollen. Objective Data Vital Signs Vital Signs: Vital Signs - 24 hr 01/16/25 12:00 01/16/25 12:00 01/16/25 12:00 Temperature 97.3 F L Pulse Rate 70 74 Respiratory Rate 18 Blood Pressure 208/95 H Pulse Oximetry 100 Oxygen Delivery Room Air 01/16/25 13:00 01/16/25 13:00 01/16/25 13:15 Temperature 98 F Pulse Rate 69 67 63 Respiratory Rate 15 22 H Blood Pressure 161/66 H 161/66 H 170/70 H Pulse Oximetry 100 Oxygen Delivery 01/16/25 13:30 01/16/25 13:45 01/16/25 14:00 Temperature Pulse Rate 69 69 62 Respiratory Rate Blood Pressure 151/66 H 161/60 H 163/59 H Pulse Oximetry Oxygen Delivery 01/16/25 14:00 01/16/25 14:00 01/16/25 14:15 Temperature Pulse Rate 62 65 67 Respiratory Rate 17 Blood Pressure 163/59 H 166/66 H Pulse Oximetry 100 Oxygen Delivery 01/16/25 14:30 01/16/25 14:45 01/16/25 14:58 Temperature Pulse Rate 72 65 71 Respiratory Rate 25 H Blood Pressure 164/73 H 173/68 H 173/68 H Pulse Oximetry 100 Oxygen Delivery 01/16/25 15:00 01/16/25 15:15 01/16/25 15:25 Temperature Pulse Rate 70 74 78 Respiratory Rate Blood Pressure 173/68 H 142/88 H 154/93 H Pulse Oximetry Oxygen Delivery 01/16/25 15:30 01/16/25 15:58 01/16/25 16:00 Temperature 97.8 F Pulse Rate 70 87 Respiratory Rate 20 22 H Blood Pressure 186/79 H 186/153 H Pulse Oximetry 100 Oxygen Delivery Room Air 01/16/25 16:00 01/16/25 18:00 01/16/25 20:00 Temperature 97.7 F Pulse Rate 87 73 72 Respiratory Rate 18 Blood Pressure 156/55 H Pulse Oximetry 98 Oxygen Delivery 01/16/25 20:00 01/16/25 20:00 01/16/25 20:36 Temperature Pulse Rate 71 71 Respiratory Rate Blood Pressure Pulse Oximetry Oxygen Delivery Room Air 01/16/25 22:00 01/17/25 00:00 01/17/25 00:00 Temperature 98.1 F Pulse Rate 72 72 Respiratory Rate 20 Blood Pressure 185/60 H Pulse Oximetry 97 Oxygen Delivery Room Air 01/17/25 00:00 01/17/25 02:00 01/17/25 04:00 Temperature Pulse Rate 70 69 Respiratory Rate Blood Pressure Pulse Oximetry Oxygen Delivery Room Air 01/17/25 04:00 01/17/25 04:00 01/17/25 06:00 Temperature 98.0 F Pulse Rate 64 64 72 Respiratory Rate 14 Blood Pressure 192/68 H Pulse Oximetry 97 Oxygen Delivery 01/17/25 08:00 01/17/25 08:00 01/17/25 08:00 Temperature 97.9 F Pulse Rate 70 73 67 Respiratory Rate 15 15 Blood Pressure 171/85 H Pulse Oximetry 100 100 Oxygen Delivery Room Air 01/17/25 08:24 01/17/25 09:39 01/17/25 09:46 Temperature Pulse Rate 73 Respiratory Rate Blood Pressure 182/79 H Pulse Oximetry Oxygen Delivery Room Air Intake/Output Intake/Output: Intake & Output 01/14/25 01/15/25 01/16/25 01/17/25 23:59 23:59 23:59 23:59 Intake Total 398.4 1400 300 Output Total 3000 1660 Balance -2601.6 -260 300 Meds/Results Medications: Active Medications Generic Name Dose Route Start Last Admin Trade Name Freq PRN Reason Stop Dose Admin Acetaminophen 650 mg 01/15/25 06:47 01/16/25 04:36 Acetaminophen 325 Mg Tablet PO 650 mg Q4H PRN Administration Mild Pain (1-3) or Fever Hydrocodone Bitart/Acetaminophen 1 tab 01/15/25 13:37 01/16/25 15:50 Hydrocodone/Acetaminophen (*Crx) 5-325 Mg Tablet PO 1 tab Q6H PRN Administration Pain Rated 4-6 Amlodipine Besylate 10 mg 01/15/25 11:10 01/17/25 08:24 Amlodipine Besylate 10 Mg Tablet PO 10 mg DAILY CHAYO Administration Apixaban 5 mg 01/15/25 17:00 01/17/25 08:24 Apixaban 5 Mg Tablet PO 5 mg BID CHAYO Administration Dextrose 12.5 gm 01/15/25 09:29 Dextrose 50% 25 Gm/50 Ml Syringe IV PUSH PRN PRN Hypoglycemia Protocol Doxazosin Mesylate 2 mg 01/15/25 11:10 01/16/25 20:36 Doxazosin Mesylate 2 Mg Tablet PO 2 mg QHS CHAYO Administration Glucagon 1 mg 01/15/25 09:29 Glucagon For Inj 1 Mg Vial IM PRN PRN Hypoglycemia Protocol Glucose 15 gm 01/15/25 09:29 Glucose Oral Gel 15 Gm Of Glucse In 37.5 Gm Tube PO PRN PRN Hypoglycemia Protocol Hydralazine HCl 20 mg 01/17/25 08:13 01/17/25 09:44 Hydralazine Hcl 20 Mg/Ml Vial IV PUSH 20 mg Q4H PRN Administration Blood Pressure - High Hydroxyzine HCl 25 mg 01/16/25 20:35 01/16/25 20:52 Hydroxyzine Hcl 25 Mg Tablet PO 25 mg Q6H PRN Administration Itching Dextrose 1,000 mls @ 100 mls/hr 01/15/25 09:29 Dextrose 5% 1,000 Ml IVPB PRN PRN Hypoglycemia Protocol Insulin Aspart 2 - 5 units 01/16/25 08:00 01/17/25 07:54 Insulin Aspart (*Bkc) 100 Units/Ml SUB-Q Not Given TIDWM CHAYO Protocol Insulin Aspart 1 - 2 units 01/16/25 21:00 01/16/25 20:37 Insulin Aspart (*Bkc) 100 Units/Ml SUB-Q Not Given HS CHAYO Protocol Irbesartan 300 mg 01/16/25 17:00 01/16/25 17:25 Irbesartan 150 Mg Tablet PO 300 mg Q24H CHAYO Administration Labetalol HCl 400 mg 01/15/25 11:10 01/17/25 08:24 Labetalol Hcl 100 Mg Tablet PO 400 mg Q12HR CHAYO Administration Ondansetron HCl 4 mg 01/15/25 06:47 Ondansetron Inj 4 Mg/2 Ml Vial IV PUSH Q4H PRN Nausea Perflutren Lipid Microsphere 0 ml 01/15/25 09:28 Perflutren Lipid Microspheres 1.5 Ml Vial Diluted To 10 Ml Total Volume IV PUSH 01/18/25 09:28 ONCE PRN adequate visualization Protocol Pregabalin 75 mg 01/15/25 11:10 01/17/25 08:24 Pregabalin (*Crx) 75 Mg Capsule PO 75 mg DAILY CHAYO Administration Sevelamer Carbonate 1,600 mg 01/15/25 13:00 01/17/25 08:24 Sevelamer Carbonate 800 Mg Tablet PO 02/14/25 12:59 1,600 mg TID CHAYO Administration Tramadol HCl 50 mg 01/15/25 14:55 01/17/25 05:26 Tramadol Hcl (*Crx) 50 Mg Tablet PO 01/17/25 14:54 50 mg Q6H PRN Administration Pain Rated 4-6 Zinc Acetate/Diphenhydramine 1 applic 01/15/25 23:36 01/16/25 00:04 Diphenhydramine 1%/Zinc 0.1% Cream 30 Gm Tube TOPICAL 1 applic QID PRN Administration Itching Radiology Results: ITS Impressions Venous Doppler Study 01/15/25 11:36 IMPRESSION: 1. No right upper extremity DVT. Wrist X-Ray 01/15/25 18:16 Impression: No acute fracture or malalignment. Chest X-Ray 01/16/25 07:05 Impression: 1: Cardiomegaly with mild interstitial edema. 2: Small pleural effusions. Labs Labs: Laboratory Results - last 24 hr 01/16/25 01/16/25 01/16/25 11:15 17:23 20:31 WBC RBC Hgb Hct MCV MCH MCHC RDW Plt Count MPV Sodium Potassium Chloride Carbon Dioxide Anion Gap BUN Creatinine Estim Creat Clear Calc Estimated GFR Glucose POC Capillary Glucose 176 H 131 H 128 H Calcium Phosphorus Magnesium Total Bilirubin AST ALT Alkaline Phosphatase Total Protein Albumin 01/17/25 01/17/25 04:32 07:44 WBC 7.3 RBC 3.72 L Hgb 9.2 L Hct 30.4 L MCV 81.7 MCH 24.7 L MCHC 30.3 L RDW 18.6 H Plt Count 233 MPV 9.3 Sodium 136 L Potassium 4.1 Chloride 98 Carbon Dioxide 28 Anion Gap 10 BUN 26 H Creatinine 7.21 H Estim Creat Clear Calc 9 Estimated GFR 6 L Glucose 114 H POC Capillary Glucose 125 H Calcium 9.4 Phosphorus 4.2 Magnesium 2.1 Total Bilirubin 0.5 AST 23 ALT 11 Alkaline Phosphatase 211 H Total Protein 7.8 Albumin 3.7
[2025-01-17] MEDS: INSULIN ASPART (*BKC) 100 UNITS/ML SUB-Q (11:39)
[2025-01-17] MEDS: IRBESARTAN 150 MG TABLET 300 MG PO (16:52)
[2025-01-17] MEDS: DOXAZOSIN MESYLATE 2 MG TABLET PO (20:42)
--- NOTE | 2025-01-17 23:14 | PC.NURSE ---
This patient, Bakari Smith, was transferred to [facility] on 01/17/25 at 2300. Personal belongings sent with patient. Report given to Brittany SALEH. Appropriate documentation sent with patient.
[2025-01-18] VITALS (25 sets, daily range): BP systolic 146–216; BP diastolic 75–129; PULSE 60–81; RESP 16–20; TEMP 36.4–37.1; O2SAT 100
[2025-01-18 05:11] LABS: Hematocrit 29.2 % (37.0-47.0); Hemoglobin 8.7 g/dL (12.0-15.0); Mean Corpuscular HGB Conc 29.8 g/dl (32-36); Mean Corpuscular Hemoglobin 24.9 pg (26-34); Mean Corpuscular Volume 83.4 fl (80-100); Platelet Count Result 240 k/mm3 (150-375); Red Blood Count 3.50 M/mm3 (4.2-5.4); White Blood Count 6.8 K/mm3 (4.5-10.0)
[2025-01-18 05:41] LABS: Alanine Aminotransferase 10 U/L (6-35); Albumin Level 3.7 g/dL (3.5-5.1); Alkaline Phosphatase 203 U/L (38-126); Anion Gap 9 mmol/L (4-12); Aspartate Amino Transferase 25 U/L (14-36); Bilirubin,Total 0.5 mg/dL (0.2-1.3); Blood Urea Nitrogen 37 mg/dL (7-17); Calcium 9.5 mg/dL (8.4-10.2); Carbon Dioxide 28 mmol/L (22-30); Chloride 98 mmol/L (98-107); Estimated CRCL calculation 7 ml/min; Estimated Glomerular Filt Rate 4; Glucose 104 mg/dL (65-110); Magnesium 2.3 mg/dL (1.6-2.3); Potassium 4.3 mmol/L (3.4-5.0); Sodium 135 mmol/L (137-145); Total Protein 7.6 g/dL (6.3-8.2)
[2025-01-18] MEDS: SEVELAMER CARBONATE 800 MG TABLET 1600 MG PO ×2 (08:41→14:02)
--- NOTE | 2025-01-18 10:18 | P.PNNP_ITS ---
Progress Note: A&P Assessment and Plan (1) End stage chronic kidney disease: Code(s): N18.6 - End stage renal disease Status: Acute Assessment and Plan: Bakari has end-stage renal disease. She had been on peritoneal dialysis for a while and then got recurrent infections because of an infected catheter film. She has been on hemodialysis and has been doing well. She is due for dialysis today (2) Respiratory failure: Code(s): J96.90 - Respiratory failure, unspecified, unspecified whether with hypoxia or hypercapnia Status: Acute Assessment and Plan: The patient is on room air now. (3) Hypertensive emergency: Code(s): I16.1 - Hypertensive emergency Status: Acute Assessment and Plan: I discussed with Dr. Ramos. Continue adjustments of her blood pressure meds. Irbesartan on day 2. Will change amlodipine to nifedipine today (4) Hand pain, right: Code(s): M79.641 - Pain in right hand Status: Acute Assessment and Plan: unclear what is going on here. Venous Dopplers negative in the right upper extremity Neuro saw the patient did feels that his carpal tunnel. (5) Diabetic retinopathy associated with type 2 diabetes mellitus: Code(s): E11.319 - Type 2 diabetes mellitus with unspecified diabetic retinopathy without macular edema Status: Acute Assessment and Plan: She is on a sliding scale insulin plus Accu-Cheks. Hospitalist/social services manager to manage this. (6) Dyslipidemia: Code(s): E78.5 - Hyperlipidemia, unspecified Status: Chronic Assessment and Plan: She is not on a statin. (7) Anemia: Code(s): D64.9 - Anemia, unspecified Status: Chronic Assessment and Plan: Hemoglobin is up to 9.2. EPO today Subjective Date/time seen: 01/18/25 10:18 Interval history: alert, feelsokay on hd alfredito it well. bp still high. remove fluid. seen at 10:45am Exam Narrative: WDWN in NAD skin no rash head ncat lungs clear cor reg no rub abd BS+ nontender and soft ext no edema in the feet. Right hand mildly swollen. Objective Data Vital Signs Vital Signs: Vital Signs - 24 hr 01/17/25 12:00 01/17/25 15:50 01/17/25 16:00 Temperature 97.5 F L Pulse Rate 65 66 66 Respiratory Rate 20 Blood Pressure 166/80 H Pulse Oximetry 98 Oxygen Delivery 01/17/25 20:00 01/17/25 20:00 01/17/25 20:42 Temperature Pulse Rate 67 70 Respiratory Rate Blood Pressure Pulse Oximetry Oxygen Delivery Room Air 01/17/25 23:58 01/18/25 00:00 01/18/25 04:00 Temperature 97.3 F L Pulse Rate 65 67 63 Respiratory Rate 20 Blood Pressure 197/79 H Pulse Oximetry 100 Oxygen Delivery 01/18/25 06:00 01/18/25 08:42 Temperature 97.6 F Pulse Rate 65 Respiratory Rate 20 Blood Pressure 185/83 H Pulse Oximetry 100 Oxygen Delivery Room Air Intake/Output Intake/Output: Intake & Output 01/15/25 01/16/25 01/17/25 01/18/25 23:59 23:59 23:59 23:59 Intake Total 398.4 1400 1520 40 Output Total 3000 1660 0 Balance -2601.6 -260 1520 40 Meds/Results Medications: Active Medications Generic Name Dose Route Start Last Admin Trade Name Freq PRN Reason Stop Dose Admin Acetaminophen 650 mg 01/15/25 06:47 01/16/25 04:36 Acetaminophen 325 Mg Tablet PO 650 mg Q4H PRN Administration Mild Pain (1-3) or Fever Hydrocodone Bitart/Acetaminophen 1 tab 01/15/25 13:37 01/16/25 15:50 Hydrocodone/Acetaminophen (*Crx) 5-325 Mg Tablet PO 1 tab Q6H PRN Administration Pain Rated 4-6 Apixaban 5 mg 01/15/25 17:00 01/17/25 16:52 Apixaban 5 Mg Tablet PO 5 mg BID CHAYO Administration Dextrose 12.5 gm 01/15/25 09:29 Dextrose 50% 25 Gm/50 Ml Syringe IV PUSH PRN PRN Hypoglycemia Protocol Doxazosin Mesylate 2 mg 01/15/25 11:10 01/17/25 20:42 Doxazosin Mesylate 2 Mg Tablet PO 2 mg QHS CHAYO Administration Glucagon 1 mg 01/15/25 09:29 Glucagon For Inj 1 Mg Vial IM PRN PRN Hypoglycemia Protocol Glucose 15 gm 01/15/25 09:29 Glucose Oral Gel 15 Gm Of Glucse In 37.5 Gm Tube PO PRN PRN Hypoglycemia Protocol Hydralazine HCl 20 mg 01/17/25 08:13 01/17/25 09:44 Hydralazine Hcl 20 Mg/Ml Vial IV PUSH 20 mg Q4H PRN Administration Blood Pressure - High Hydroxyzine HCl 25 mg 01/16/25 20:35 01/16/25 20:52 Hydroxyzine Hcl 25 Mg Tablet PO 25 mg Q6H PRN Administration Itching Dextrose 1,000 mls @ 100 mls/hr 01/15/25 09:29 Dextrose 5% 1,000 Ml IVPB PRN PRN Hypoglycemia Protocol Albumin Human 50 mls @ 999 mls/hr 01/17/25 11:02 Albutein IVPB 01/18/25 11:01 Q10M PRN HYPOTENSION Insulin Aspart 2 - 5 units 01/16/25 08:00 01/18/25 08:33 Insulin Aspart (*Bkc) 100 Units/Ml SUB-Q Not Given TIDWM CHAYO Protocol Insulin Aspart 1 - 2 units 01/16/25 21:00 01/17/25 20:47 Insulin Aspart (*Bkc) 100 Units/Ml SUB-Q Not Given HS [facility] Protocol Irbesartan 300 mg 01/16/25 17:00 01/17/25 16:52 Irbesartan 150 Mg Tablet PO 300 mg Q24H CHAYO Administration Labetalol HCl 400 mg 01/15/25 11:10 01/17/25 20:42 Labetalol Hcl 100 Mg Tablet PO 400 mg Q12HR CHAYO Administration Nifedipine 60 mg 01/18/25 09:00 Nifedipine 30 Mg Tab.Er.24 PO QAM CHAYO Ondansetron HCl 4 mg 01/15/25 06:47 Ondansetron Inj 4 Mg/2 Ml Vial IV PUSH Q4H PRN Nausea Pregabalin 75 mg 01/15/25 11:10 01/17/25 08:24 Pregabalin (*Crx) 75 Mg Capsule PO 75 mg DAILY CHAYO Administration Sevelamer Carbonate 1,600 mg 01/15/25 13:00 01/18/25 08:41 Sevelamer Carbonate 800 Mg Tablet PO 02/14/25 12:59 1,600 mg TID CHAYO Administration Zinc Acetate/Diphenhydramine 1 applic 01/15/25 23:36 01/16/25 00:04 Diphenhydramine 1%/Zinc 0.1% Cream 30 Gm Tube TOPICAL 1 applic QID PRN Administration Itching Radiology Results: ITS Impressions Venous Doppler Study 01/15/25 11:36 IMPRESSION: 1. No right upper extremity DVT. Wrist X-Ray 01/15/25 18:16 Impression: No acute fracture or malalignment. Chest X-Ray 01/16/25 07:05 Impression: 1: Cardiomegaly with mild interstitial edema. 2: Small pleural effusions. Labs Labs: Laboratory Results - last 24 hr 01/17/25 01/17/25 01/17/25 11:36 16:52 20:47 WBC RBC Hgb Hct MCV MCH MCHC RDW Plt Count MPV Sodium Potassium Chloride Carbon Dioxide Anion Gap BUN Creatinine Estim Creat Clear Calc Estimated GFR Glucose POC Capillary Glucose 203 H 92 128 H Calcium Phosphorus Magnesium Total Bilirubin AST ALT Alkaline Phosphatase Total Protein Albumin 01/18/25 01/18/25 04:37 07:42 WBC 6.8 RBC 3.50 L Hgb 8.7 L Hct 29.2 L MCV 83.4 MCH 24.9 L MCHC 29.8 L RDW 18.9 H Plt Count 240 MPV 10.2 Sodium 135 L Potassium 4.3 Chloride 98 Carbon Dioxide 28 Anion Gap 9 BUN 37 H D Creatinine 9.78 H Estim Creat Clear Calc 7 Estimated GFR 4 L Glucose 104 POC Capillary Glucose 130 H Calcium 9.5 Phosphorus 5.4 H Magnesium 2.3 Total Bilirubin 0.5 AST 25 ALT 10 Alkaline Phosphatase 203 H Total Protein 7.6 Albumin 3.7
[2025-01-18] MEDS: EPOETIN ALFA-EPBX 4,000 UNITS/ML VIAL 4000 UNITS IV PUSH (11:04)
[2025-01-18] MEDS: LABETALOL HCL 100 MG TABLET 400 MG PO (11:15)
[2025-01-18] MEDS: PREGABALIN (*CRX) 75 MG CAPSULE PO (14:02)
[2025-01-18] MEDS: APIXABAN 5 MG TABLET PO (14:02)
--- NOTE | 2025-01-18 14:20 | PM.DS ---
DS: Admitting Diagnosis Discharge Date 01/18/25 Admitting Diagnosis acute resp failure DS: Discharge Diagnosis Discharge Diagnosis (1) Shortness of breath: Code(s): R06.02 - Shortness of breath Status: Acute Assessment and Plan: 01/15: Patient presented with acute onset of shortness of breath which woke her up from sleep and patient presented the ED in the early hours of 01/15 -proBNP > 30,000 and chest x-ray showed interstitial pulmonary edema, bilateral persistent pleural effusions -patient was placed on BiPAP -pulmonary edema secondary to volume overload from end-stage renal disease and hypertensive urgency -since then patient has been dialyzed couple of times. -hypoxia has resolved and patient is now RA -EKG showed normal sinus rhythm, no ST-T change (2) Hypertensive urgency: Code(s): I16.0 - Hypertensive urgency Status: Acute Assessment and Plan: Hypertensive urgency likely related to end-stage renal disease and volume overload Overall has improved Continue dialysis per Nephrology Continue current meds including amlodipine Cardura Avapro labetalol Continue p.r.n. hydralazine. Nephrology has ordered additional workup including aldosterone level metanephrine levels and renin level DC amlodipine. Continue with nifedipine (3) Elevated brain natriuretic peptide (BNP) level: Code(s): R79.89 - Other specified abnormal findings of blood chemistry Status: Acute Assessment and Plan: Elevated proBNP could be related to volume overload secondary to end-stage renal disease, patient does have diastolic dysfunction as seen on echocardiogram as under Echocardiogram 1. Complete two-dimensional, color flow and Doppler transthoracic echocardiogram is performed. 2. Left ventricular chamber dimension is normal. 3. Left ventricular systolic function is normal, estimated at 55-60. 4. There is moderate concentric increased left ventricular wall thickness. 5. The left ventricular diastolic function is abnormal. 6. E/e' 21 is elevated. 7. Left atrial chamber dimension is mildly enlarged. 8. There is mild mitral valve regurgitation. 9. There is mild tricuspid valve regurgitation. 10. No pulmonary hypertension, estimated pulmonary arterial systolic pressure is 32 mmHg. 11. There is trace pulmonic regurgitation. 12. There is trace to small circumferential pericardial effusion. (4) Diabetes mellitus type 2, insulin dependent: Code(s): E11.9 - Type 2 diabetes mellitus without complications; Z79.4 - [facility] (current) use of insulin Status: Chronic Assessment and Plan: Accu-Cheks and sliding scale insulin -blood sugars have been stable -patient takes Lantus at home, currently on hold as blood sugars are not too elevated (5) ESRD needing dialysis: Code(s): N18.6 - End stage renal disease; Z99.2 - Dependence on renal dialysis Status: Acute Assessment and Plan: End-stage renal disease on dialysis, patient was a peritoneal dialysis patient, had multiple episodes of peritonitis per Nephrology, peritoneal dialysis catheter has been changed, patient currently being dialyzed with a temporary tunneled dialysis catheter in the left chest wall -normally receives dialysis on Tuesdays, and Thursday -patient received dialysis on last 2 days. -further dialysis per Nephrology (6) Hand pain, right: Code(s): M79.641 - Pain in right hand Status: Acute Assessment and Plan: Patient has a history of right arm DVT for which she is on the Eliquis at home - swollen left right hand, could be related to volume overload. Right upper extremity Doppler was negative for DVT Wrist x-ray showed no fracture or misalignment Neurology team on board. Possible carpal tunnel syndrome (7) Right carpal tunnel syndrome: Code(s): G56.01 - Carpal tunnel syndrome, right upper limb Status: Acute Assessment and Plan: Appreciate Neurology evaluation recommendations, continue pain pain control for now -will require nerve conduction study as outpatient Plan DVT prophylaxis: Continue Eliquis Stress ulcer prophylaxis: Not indicated Nutrition: Renal diet Code Status: Full code Transferred to [facility] status DS: Summary Hospital Course Hospital Course: Patient with history of hypertension, diabetes, ESRD presented with shortness of breath on admission patient had blood pressure 270/118. Chest x-ray concerning for pulmonary edema. treatment was started with labetalol Valium and nicardipine drip patient was admitted to ICU.End-stage renal disease on dialysis, patient was a peritoneal dialysis patient, had multiple episodes of peritonitis per Nephrology, peritoneal dialysis catheter has been changed, patient currently being dialyzed with a temporary tunneled dialysis catheter in the left chest wall -normally receives dialysis on Tuesdays, and Thursday Patient underwent hemodialysis. Blood pressure is still running high. Amlodipine was stopped and started on nifedipine today. Patient is feeling better. Pain is better. Blood pressure under better control. Nephrology team on board and okay to discharge patient home follow as outpatient. Patient also was complaining of right hand tingling numbness. neurologist was consulted. Patient was diagnosed with carpal tunnel syndrome Status at Discharge Functional status at discharge: independent ambulation Time Spent with Patient Time attestation: Total time spent providing and/or coordinating discharge services: Time spent: Greater than 30 minutes Exam Narrative: General: Pleasant female, in no respiratory distress, sitting up on the side of the bed HEENT:? Pupils equal reactive, sclerae is clear Neck:? Supple Respiratory:? Breath sounds are much more clear, no wheezing, adequate air entry few crackles at the bases Cardiac:? S1-S2 normal, regular rate and rhythm Abdomen:? Soft, nontender, nondistended, normoactive bowel so peritoneal dialysis catheter in place Extremities:? Right upper extremity swollen, especially the right hand and tender, right hand any Ayush wrap, warm with adequate pulses. Minimal Bilateral lower extremity edema, palpable pedal pulses Neuro:? Patient is awake, alert, oriented, answers to questions appropriately and follows simple commands in all extremities AO x3 Skin:? No skin lesions noted Psych:? Normal mentation and affect DS: Data Data Completed and Pending Labs on day of discharge: Labs from last 24 hours 01/18/25 01/18/25 01/17/25 07:42 04:37 20:47 WBC 6.8 RBC 3.50 L Hgb 8.7 L Hct 29.2 L MCV 83.4 MCH 24.9 L MCHC 29.8 L RDW 18.9 H Plt Count 240 MPV 10.2 Sodium 135 L Potassium 4.3 Chloride 98 Carbon Dioxide 28 Anion Gap 9 BUN 37 H D Creatinine 9.78 H Estim Creat Clear Calc 7 Estimated GFR 4 L Glucose 104 POC Capillary Glucose 130 H 128 H Calcium 9.5 Phosphorus 5.4 H Magnesium 2.3 Total Bilirubin 0.5 AST 25 ALT 10 Alkaline Phosphatase 203 H Total Protein 7.6 Albumin 3.7 01/17/25 16:52 WBC RBC Hgb Hct MCV MCH MCHC RDW Plt Count MPV Sodium Potassium Chloride Carbon Dioxide Anion Gap BUN Creatinine Estim Creat Clear Calc Estimated GFR Glucose POC Capillary Glucose 92 Calcium Phosphorus Magnesium Total Bilirubin AST ALT Alkaline Phosphatase Total Protein Albumin Discharge Plan Discharge Attending physician on discharge: Kyra Goel Consulting providers: Umang Stacy; Lazaro Ramos; Dean Olson; Kyra Goel Discharging Clinician: Kyra Goel Anticipated Discharge Date/Time: 01/18/25 14:22 Patient Disposition: Home Activity: as tolerated Diet: heart healthy, diabetic and renal Discharge Instructions: Check your blood pressure and heart rate regularly and report to the pcp Follow-up with nephrology clinic as outpatient Follow-up with PCP in 1 week Stop taking amlodipine. Continue with nifedipine Continue with dialysis regularly Patient Instructions: Antibiotic Form Patient Language: Divehi Stand Alone Forms: General Discharge Information Follow-up/Referrals: Umang Stacy MD [Physician, Nephrology] - Call for Appointment Sulema Lennon APRN [Primary Care Provider, Internal Medicine] - 1 Week Discharge Medications: New nifedipine [Procardia XL] 30 mg Tablet Extended Release 24hr 60 mg PO QAM Qty: 30 0RF Continued lactulose 10 gram/15 mL solution 15 ml PO QHS PRN (Reason: constipation) insulin degludec 100 unit/mL (3 mL) insulin pen 10 unit subcut DAILY Qty: 15 1RF Eliquis 5 mg tablet 5 mg PO BID Qty: 60 5RF sevelamer HCl 800 mg tablet 1,600 mg PO TID Rx Instructions: must administer with a meal/food dextrose [Glutose-15] 40 % Gel 15 g PO PRN PRN (Reason: Hypoglycemia) Qty: 112 0RF labetalol 100 mg Tablet 400 mg PO Q12HR Qty: 240 0RF (DME) pen needle, diabetic [Easy Comfort Pen [place]] 32 gauge x 5/32 needle See Rx Instructions .Route Qty: 50 3RF Rx Instructions: Inject insulin once daily As directed (DME) FreeStyle Alexandro 3 Plus Sensor Device See Rx Instructions .Route Qty: 2 3RF Rx Instructions: Check glucose continuously every 15 days As directed acetaminophen 500 mg tablet 1,000 mg PO TID PRN (Reason: tessie) Qty: 180 1RF pregabalin [Lyrica] 75 mg capsule 75 mg PO DAILY Qty: 90 1RF doxazosin [Cardura] 2 mg tablet 2 mg PO QHS Qty: 90 1RF losartan 100 mg tablet 100 mg PO DAILY Qty: 90 1RF Discontinued amlodipine 10 mg tablet 10 mg PO DAILY Qty: 90 1RF Date of admission: 01/15/25 09:52 Primary Care Provider: Sulema Lennon Admitting Provider: Denia Atkins Attending physician on admission: Denia Atkins Condition: Serious
[2025-01-25 10:09] LABS: Renin Activity, Plasma <0.167 ng/mL/hr (0.167-5.380)
== END 2025-01-18 16:13 | disposition home or self-care (01) | DRG 304 ==
LOC: ANHED 07:19 → ANHICU 07:22 → ANH3MED 01-17 22:59
PROVIDERS: Internal Medicine; Internal Medicine Nephrology; Admitting Provider Internal Medicine; Emergency Provider Student in an Organized Health Care Education/Training Program; PCP Nurse Practitioner Family; Visit Provider Internal Medicine
DX: I16.1 Hypertensive emergency (principal); J96.01 Acute respiratory failure with hypoxia; N18.6 End stage renal disease; E11.22 Type 2 diabetes mellitus with diabetic chronic kidney disease; I12.0 Hypertensive chronic kidney disease with stage 5 chronic kidney disease or end stage renal disease; K21.9 Gastro-esophageal reflux disease without esophagitis; K58.9 Irritable bowel syndrome, unspecified; E11.42 Type 2 diabetes mellitus with diabetic polyneuropathy; E11.319 Type 2 diabetes mellitus with unspecified diabetic retinopathy without macular edema; N25.0 Renal osteodystrophy; K57.90 Diverticulosis of intestine, part unspecified, without perforation or abscess without bleeding; E87.70 Fluid overload, unspecified; D63.1 Anemia in chronic kidney disease; E78.5 Hyperlipidemia, unspecified; M17.12 Unilateral primary osteoarthritis, left knee; G56.01 Carpal tunnel syndrome, right upper limb; M19.031 Primary osteoarthritis, right wrist; Z99.2 Dependence on renal dialysis; Z90.49 Acquired absence of other specified parts of digestive tract; Z90.721 Acquired absence of ovaries, unilateral; E66.9 Obesity, unspecified; Z68.31 Body mass index [BMI] 31.0-31.9, adult; I69.398 Other sequelae of cerebral infarction; H53.9 Unspecified visual disturbance; R26.89 Other abnormalities of gait and mobility; Z86.718 Personal history of other venous thrombosis and embolism; Z79.4 Long term (current) use of insulin; Z79.01 Long term (current) use of anticoagulants
CPT/HCPCS: 36415; 71045; 73110; 80053; 82088; 82607; 82728; 82746; 82948; 83036; 83540; 83550; 83690; 83735; 83835; 83880; 84100; 84244; 84443; 84484; 85025; 85027; 85610; 85730; 87641; 93005; 93306; 93971; 94002; 96374; 96375; 97165; 99285; A9270; G0257; G0378; J0360; J1644; J1815; J2404; J3360; J7030; Q5105

== ENCOUNTER 2025-01-28 07:13 | Emergency (ER) | payer MEDICARE, MEDICAID, SELFPAY ==
--- OUTSIDE RECORDS SUMMARY | 2025-01-13 06:46 | XMS_ITS | Continuity of Care Document ---
Author Organization [facility] Address [address] [place] [address] Phone Care Team Providers Care Senior Sql Server Developer Name Role Phone Elio Garcia MD Unavailable Unavailabl e Allergies, Adverse Reactions, Alerts Substance Reaction Status Criticality metronidazole Itching(mild)Itching(mild) Active No Information omeprazole Hives(mild)Hives(mild) Active No In formation Medications Medication Instructions Dosage Effective Dates (start - stop) Status Comments Eliquis 5 mg tablet take 1 tablet by ora l route 2 times every day 5 MG - Active amlodipine 10 mg tablet take 1 tablet by oral route every day 10 MG - Active Cardura 2 mg tablet take 1 tablet by ora l route every day 2 MG - Active gabapentin 100 mg capsule take 1 capsule by oral route 3 times every day 100 MG - Active labetalol 200 mg tablet take 1 tablet by oral route 2 times every day 200 MG - Active lactulose 10 gram oral packet take 1 packet by oral route every day dissolved in 4 ounces of water 10 G - Active losartan 100 mg tablet take 1 tablet by oral route every day 100 MG - Active sevelamer carbonate 800 mg tablet take 1 tablet by oral route 3 times every day with food 800 MG - Active Procedures Procedure Date CONTRAST, 300/ML, PER ML MOD SED BY OR SUP BY PHYSICIAN PD CATH INSERT Radiation Exposure Documented To Be Coded Insert faina ip cath perc Mod sed same phys/qhp 5/>yrs Mod sed same phys/qhp ea LOCM 300-399mg/ml iodine,1ml LOCM 300-399mg/ml iodine,1ml Advance Directives Directive Yes / No Effective Date File Name No Information Encounters Encounter Description Practice Location Reason(s) For Visit Diagnoses Date Provider Providers Copied on Encounter [facility], [address] [place] [address], [id number], tel:[phone] [facility] No Information Joes Ballard. [address] [place] [address], [id number], . tel:[phone] [facility], [address] [place] [address], [id number], tel:[phone] [facility] Jose Ballard. [address] [place] [address], [id number], . tel:[phone] Referring Provider: Bernabe Fernandez, [address] [facility] [address] [facility], [place], [address]. tel:[phone] As per patient privacy policy some of the clinical information may not be visible. Family History Family Member Type Diagnosis Age At Onset No Information Payers Payer name Insurance type Covered alliance party ID Authoriza tion(s) Medicare [place] MB [id number] Social History Type Description Quantity Date Captured Comments Sex Female Smoking Status No Information Gender Identity Female Chief Complaint And Reason For Visit No Information Reason For Referral Reason For Referral No Information Plan Of Treatment Date Type Action Status Future Order: Radiology Order Lo wer Body Flouroscopy ([id number]), Ordered on: Ordered History Of Present Illness Encounter Date Complaint History Of Prese nt Illness No Information Functional Status Date Functional Assessmen t No Information Instructions Date Instruction Additional Infor mation No Information Assessments Type Assessment Date No Information Patient Care Teams Name Effective Dates (start - stop) Status Members No Information
--- OUTSIDE RECORDS SUMMARY | 2025-01-13 06:46 | XMS_ITS | Continuity of Care Document ---
Author Organization [facility] Address [address] [place] [address] Phone Care Team Providers Care Invoice Machine Operator Name Role Phone Elio Garcia MD Unavailable [...] Diagnoses Date Provider Providers Copied on Encounter [facility], [address] [place] [address], [id number], tel:[phone] [facility] No Information Jose Ballard. [address] [place] [address], [id number], . tel:[phone] [facility], [address] [place] [address], [id number], tel:[phone] [facility] Jose Ballard. [address] [place] [address], [id number], . tel:[phone] Referring Provider: Bernabe Fernandez, [address] [facility] [address] [facility], [place], [address]. tel:[phone] As per patient privacy policy some of the clinical information may not be visible. Family History Family Member Type Diagnosis Age At Onset No Information Payers Payer name Insurance type Covered green party ID Authoriza tion(s) Medicare [place] MB [id number] Social History Type Description Quantity Date Captured Comments Sex Female Smoking Status No Information Gender Identity Female Chief Complaint And Reason For Visit No Information Reason For Referral Reason For Referral No Information Plan Of Treatment Date Type Action Status Future Order: Radiology Order Lo wer Body Flouroscopy ([id number]), Ordered on: Ordered History Of Present Illness Encounter Date Complaint History Of Prese nt Illness No Information Functional Status Date Functional Assessmen t No Information Instructions Date Instruction Additional Infor mation No Information Assessments Type Assessment Date No Information Patient Care Teams Name Effective Dates (start - stop) Status Members No Information
--- NOTE | ~2025-01-28 | XR_ITS ---
Examination: XR wrist RT min 3V, XR hand RT min 3V Clinical History: wrist pain/ trauma Comparison: Right hand 12/01/2024 Technique: 3 views right wrist, 4 views right hand Findings/impression: Right wrist: 1. No fracture or dislocation. 2. Diabetic arteriopathy Right hand: 1. No fracture or dislocation. Reviewed, dictated and finalized at location R. ROPOLOGY LECTURER
--- OUTSIDE RECORDS SUMMARY | 2025-01-28 07:15 | XMS_ITS | Clinical Summary ---
Author Organization [facility] Address [address] [place] [address] Care Team Providers Care Securities Trader Name Role Phone Jessie Dickson WIRE STRANDER-THERMOPLASTIC TECHNICIAN Primary Care Pro vider Source Comments [facility],non-owned Affiliates and Associated Physician Practices is amultiple site organization consisting of ambulatory clinics and hospital sitesin [place], [place], [place] and [place]. This disclosure is being madepursuant to the Care Everywhere program and may not contain all information available regarding this patient. Last updated 17.[facility] Allergies Active Allergy Reactions Criticality Noted Date [...] Each 11 06/10/19 19 Active ergocalciferol (DRISDOL) 68322 units capsule Take 1 capsule by mouth [...] 2 tablet 01/22/20 22 Active HYDROcodone-acetami nophen ([place]) 5-325 MG tablet Take 1 (one) tablet [...] on file Legal Sex Female 5:16 PM ROLLING ATTENDANT Gender Identity Not on file Sexual Orientation Not on file Last Filed Vital Signs Vital Sign Reading Time Taken Comments Blood Pressure 145/85 02/05/2022 12:[address] irizarry aware; ok to d/cv Pulse 74 02/05/2022 11:55 AM ROLLING ATTENDANT Temperature 36.8 C (98.2 F) 09/13/2019 8:22 AM CDT Respiratory Rate 12 02/05/2022 11:5 0 AM ROLLING ATTENDANT Oxygen Saturation 100% 02/05/2022 11: 55 AM ROLLING ATTENDANT Inhaled Oxygen Concentration - - Weight 108.9 [...] Dialysis 4-dose series) 1998 PAP SMEAR 1999 DIABETES-FOOT EXAM WITH MONOFILAMENT 11/10/2018 11/10/2017, 11/10/2017 [...] 11/01/2018 10:11 AM CDT us Tessie Pritchard WIRE STRANDER-THERMOPLASTIC TECHNICIAN LAB - POINT OF CARE O RDERABLES Final Result * HEPATITIS C AB SCREEN RFLX NAAT QUANT (05/28/2018 12:13 PM CDT) Hepatitis C Antibody Non-react javier Non-reac tive 05/28/2018 1:18 PM CDT [facility] Comment: Hepatitis C Antibody screen [...] MD LAB - CHEMISTRY ORDERABLES Final Result [address] [phone] * HIV-1 HIV-2 ANTIGEN/ANTIBODY (05/24/2018 5:08 PM CDT) HIV Antigen/Antibod y 1 & 2 Non-reacti ve Non-react javier 05/24/2018 5:54 PM CDT [facility] Comment: Neither HIV-1 p24 Antigen nor HIV-1/HIV-2 Antibodies are detected. Blood BLOOD SPECIMEN / Unknown Venipuncture / Unknown 05/24/2018 5:08 PM CDT 05/24/2018 5:16 PM CDT us Namita Raymond MD LAB - HEMATOLOGY ORDERABLES Fi nal Result [facility] [address] [place] [address], [facility] [phone] from Last 3 Months or Most Recently Relevant to Health Maintenance Insurance MEDICARE MEDICAID - [place] MEDICA[place] [address] MEDICAID - OUT OF STATE Advance Directives * Full Code (Latest Code Status on File) Date Activated Date Inactivated Comments 05/25/2018 12:57 AM 05/28/2018 5:22 PM * Full Code Date Activated Date Inactivated Comments 05/24/2018 6:24 PM 05/25/2018 12:57 AM Care Teams Securities Trader Relationship Specialty Start Date End Date Jessie Dickson APRN-JANET [address] [address] PCP - General 06/30/14
--- OUTSIDE RECORDS SUMMARY | 2025-01-28 07:15 | XMS_ITS | Clinical Summary ---
Author Organization [facility] Address [address] [place] [id number] Phone Care Team Providers Care Specialist Physicians Name Role Phone Jessie Dickson MD Primary Care Provider [phone] Allergies Active Allergy Reactions Criticality Noted Date [...] times daily. 9 Active ergocalciferol (VITAMIN D2) 68499 units capsule TK 1 C PO Q [...] the skin Active Blood Glucose Monitoring Suppl (ZIIBRA Verio Flex System) w/Device kit USE DIRECTED [...] Insurance MEDICAID - [place] MEDICARE Care Teams Specialist Physicians Relationship Specialty Start Date End Date Jessie Dickson MD [facility], [place] [address] PCP - General 05/31/18
--- OUTSIDE RECORDS SUMMARY | 2025-01-28 07:16 | XMS_ITS ---
Author Organization [facility] Address [address] [place] [address] Care Team Providers Care Spray Pilot Name Role Phone Almita Rizzo RN Unavailable [phone] Beth Fernandez MD Unavailable [phone] Maday Oviedo MD Unavailable [phone] Tomasz Scott DO Unavailable Meir Nazario MD Unavailable [phone] Sulema Lennon NP Primary Care Provider [phone] Dialysis Access Sites Type Status Location Placement [...] transplant list ESRD (end stage renal disease) EGFR STAT 10/06/2024 2:27 PM CDT HEMOGLOBIN A1C Routine 09/14/2024 5:21 AM CDT LIPID PANEL STAT 06/21/2024 7:20 PM CDT HEPATITIS C ANTIBODY Routine 02/16/2024 11:34 AM 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 OPERATOR Pre-kidney transplant, patient on transplant [...] 30 doses 30 tablet 12/01/19 24 Active Additional Information Patient not taking.Reported on [...] 2 (two) times a day 60 tablet 11 09/16/19 25 09/15/ 2026 Active losartan (COZAAR) 100 mg tablet Take 1 tablet (100 mg total) by mouth daily 30 tablet 09/17/192025 Active acetaminophen (TYLENOL) 325 mg tabletIndications:Fe ida,Pain Take 2 tablets (650 mg total) by mouth every 6 (six) hours as needed for pain 30 tablet 09/16/19 Active doxazosin (CARDURA) 2 mg tablet Take 1 tablet (2 mg total) by mouth nightly 30 tablet 09/16/192025 Active sevelamer (RENVELA) 800 mg tabletIndications:Re nal Osteodystrophy with Hyperphosphatemia Take 1 tablet (800 mg total) by mouth 3 (three) times a day with meals 90 tablet 09/16/192025 Active HYDROcodone-acetamin ophen (NORCO) 5-325 mg per tabletIndications:Pa in Take 1 tablet by mouth every 6 (six) hours as needed for pain 10 tablet 10/07/19 25 Active apixaban (ELIQUIS) 5 mg tablet Take 1 tablet (5 mg total) by mouth 10/14/19 25 Active Eliquis 5 mg tablet TAKE 1 TABLET BY MOUTH 2 TIMES DAILY FOR BLOOD CLOT IN A DEEP VEIN 10/31/19 25 Active cefdinir (OMNICEF) 300 mg capsule 12/03/19 25 Active cefpodoxime (VANTIN) 200 mg tablet TAKE 1 TABLET BY MOUTH EVERY DAY MUST ADMINISTER WITH A MEAL/FOOD 09/29/19 Active cholecalciferol (VITAMIN D-3) 5,000 unit tablet Take 1 tablet (5,000 Units total) by mouth daily Active insulin degludec (TRESIBA) 100 unit/mL (3 mL) pen for injection Inject 0.1 mL (10 Units total) under the skin 11/02/19 25 Active megestroL (MEGACE) 40 mg tablet Take 1 tablet (40 mg total) by mouth daily 12/07/19 24 Active methocarbamoL (ROBAXIN) 750 mg tablet take 2 tablets (1500 mg) by mouth three times a day 05/07/19 25 Active oxyCODONE (ROXICODONE) 5 mg immediate release tablet 5 MG ORALLY EVERY 4 HOURS NEEDED FOR PAIN RATED 7-10 FOR 5 DAYS 11/09/19 25 Active pregabalin (LYRICA) 75 mg capsule Take 1 capsule (75 mg total) by mouth 12/13/19 25 Active triamcinolone (KENALOG) 0.1 % cream APPLY [...] (04/10/2022): Added automatically from request for surgery [id number] Hypertension 2021 ESRD (end stage renal disease) [...] Tobacco: Never Tobacco Cessation:Counseling Given: Not Answered [facility] Utilities Answer Date Recorded In the past 12 months has th e electric, gas, oil, or water [employer] threatened to shut off services in your [...] often do you attend chur ch or hindu services? More than 4 times per year 09/14/2024 Do you belong to any clubs o r organizations such as zoroastrianism groups, unions, fraternal or athletic groups, or [...] any time in the past 12 m [facility], were you homeless or living in a chcf (including now)? No 09/14/2024 Personal Safety Answer Date Recorded Have you ever been in or are you currently in a harmful physical or emotional relationship or is someone making you feel afraid or unsafe? 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 In order to improve specificity, the International Congress on Antiphospholipid Antibodies recommends Beta-2 GP1 antibodies of IgG or IgM isotype (> the 99th percentile), obtained twice, at least 12 weeks apart, to support a diagnosis of antiphospholipid syndrome. The cutoff for this assay was developed from data based on the 99th percentile. These results were obtained with the Pivtolex 2200 System. Beta 2GP1 IgG values obtained with different manufacturers' assay methods may not be used interchangeably. Current interpretive data was last revised on 2016. Beta-2 glycoprotein I, IgM 1.9 <=19.9 units/mL [facility] Comment: Interpretive Data Negative: <20 U/mL Positive: [...] factor. These results were obtained with the Pivtolex 2200 System. Beta-2 GP1 IgM values obtained with different manufacturers' assay methods may not be used interchangeably. Current interpretive data was last revised on 2016. Blood 12/23/2024 10:0 5 AM CDT 12/23/2024 10:32 AM CDT Fannie Fountain NP LAB BLOOD ORDERABLES Final Result [facility] Department [place] [address] * PR3 - proteinase 3, Ab (12/23/2024 10:05 AM CDT) Proteinase 3 ab <0.2 <=0.9 Ab Index Comment: Interpretive Data Negative: <1 Ab Index Positive: > or = 1 Ab Index Current interpretive data was last revised on 2016. Blood 12/23/2024 10:0 5 AM CDT 12/23/2024 10:32 AM CDT Fannie Fountain NP LAB BLOOD ORDERABLES Final Result Performing Organization Address [facility] Co de Phone Number [facility] [place] [address] * MPO - myeloperoxidase antibody (12/23/2024 10:05 AM CDT) Pathologist [facility] Myeloperoxidase ab <0.2 <=0.9 Ab Index Comment: Interpretive Data Negative: <1 Ab Index Positive: > or = 1 Ab Index Current interpretive data was last revised on 2016. Blood 12/23/2024 10:0 5 AM CDT 12/23/2024 10:32 AM CDT Fannie Fountain NP LAB BLOOD ORDERABLES Final Result Performing Organization Address [facility] de Phone Number [facility] [place] [address] * (ABNORMAL) Anti-Neutrophilic Cytoplasmic Antibody (ANCA) with Reflex to MPO and PR3 Abs (0:05 AM CDT) [facility] ANCA Positive( A) Negative ANCA Titer 1:1280 titer [facility] ANCA Pattern P-ANCA [facility] Comment:IFA Testing is sugge stive of P-ANCA. Results by antigen specific Immunoassay (MPO & PR3) to follow. Blood 12/23/2024 10:0 5 AM CDT 12/23/2024 10:32 AM CDT Fannie Fountain SORTER LUMBER STRAIGHTENER LAB BLOOD ORDERABLES Final Result Performing Organization Address [facility] Co de Phone Number [facility] [place] [address] * Antihistone antibodies (12/23/2024 10:05 AM CDT) [facility] Antihistone <1.0 U Comment: Value Explanation of Results ------ <1.0 Negative 1.0-1.5 Weak Positive 1.6-2.5 Moderate Positive >2.5 Strong Positive Test Performed at: [employer] [address] [place] [address] IMAN Adenike CASTAÑEDA Blood 12/23/2024 10:0 5 AM CDT 12/23/2024 10:32 AM CDT Fannie Fountain SORTER LUMBER STRAIGHTENER LAB BLOOD ORDERABLES Final Result Performing Organization Address [facility] Co de Phone Number [facility] Department [place] [address] * Uric acid (12/23/2024 10:05 AM CDT) Pathologist [facility] Uric acid 4.2 2.5 - 7.0 mg/dL Blood 12/23/2024 10:0 5 AM CDT 12/23/2024 10:32 AM CDT Fannie Fountain SORTER LUMBER STRAIGHTENER LAB BLOOD ORDERABLES Final Result Performing Organization Address [facility] de Phone Number [facility] Department [place] [address] * XR Knee Bilateral Ap Standing (12/23/2024 [...] by: Ric Watts M.D. us Fannie Fountain SORTER LUMBER STRAIGHTENER IMG XR PROCEDURES Fin al Result * HLA Antibody Screen by PRA or SAB per Schedule (Class I and Class II) (12/15/2024 10:00 AM CDT) Blood 12/15/2024 10:0 0 AM CDT Narrative [facility] - 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 OPERATOR Sample received in lab. Single [...] a method developed and validated by the [facility] HLA laboratory based on an FDA-approved IVD kit (LABScreen Single-Antigen, [employer], [place], [place]). All patient serum samples are pretreated with EDTA before the screen to prevent complement interference. Additional serum treatments, such as adsorption and DTT treatment, may be performed as indicated. Interpretive comments: Low risk: MFI [id number]. Moderate risk: MFI 3061-1274. Increased risk: MFI >/= 5000. The presence [...] antigens to avoid. Testing performed at the [facility], [address] [place] [address], 5th floor, [place], [address]. CLIA # [id number]. Amber Berry, Ph.D., Banking Assistant, HLA Laboratory Jonathan Brennan M.D., Ph.D., Stave Grader, HLA Laboratory Rehana Alarcon, Ph.D., CLIA Stave Grader, [facility] Current methodology and interpretive comments last revised on 03/20/2022. us Miriam Garner MD LAB BLOOD ORDERAB LES Final Result [facility] * (ABNORMAL) eGFR (10/06/2024 2:27 PM CDT) [...] ORDERABLES Final Re sult Performing Organization Address [facility] Co de Phone Number [address] [employer] [place], [place] [id number] * (ABNORMAL) Hemoglobin A1c (09/14/2024 5:21 AM CDT) Hgb A1C 6.2(H) 4.0 - 5.6 % Estimated Average Glucose 131 mg/dL [facility] Comment: The ADA recommends reporting an estimated Average Glucose (eAG) with all Hemoglobin A1c results using the equation derived from a study of 507 normal and diabetic adults. Minority populations were underrepresented and children were not included. (Diabetes Care 31:4323-2020, 2008). The eAG is not equivalent to a fasting glucose. Blood 09/14/2024 5:21 AM CDT 09/14/2024 5:36 AM CDT Jonnathan Mojica DO LAB BLOOD ORDERABLES Vicki l Result Performing Organization Address City/[facility]/ZIP Co de Phone Number [address] [place] [address] * Lipid panel (06/21/2024 7:20 PM CDT) Pathologist [facility] Cholesterol 138 30 - 199 mg/dL Comment: [...] revised on 2017. Triglycerides 112 <=149 mg/dL [facility] Comment: Interpretive Data Ages < or [...] revised on 2017. HDL 56 >=40 mg/dL [facility] Comment: Interpretive Data Ages < or [...] on 2017. LDL, calculated 62 <=129 mg/dL [facility] Comment: Interpretive Data Ages < or [...] revised on 2023. Non-HDL Cholesterol 82 mg/dL [facility] Comment: Interpretive Data Ages < or [...] last revised on 2017. Chol/HDL ratio 2 [facility] Blood 06/21/2024 7:20 PM CDT 06/21/2024 7:40 PM CDT Narrative [facility] - 06/22/2024 8:42 AM CDT Reflex Brandan Orr MD LAB BLOOD ORDERABLES Vicki radu Result [facility] Department [place] [address] * Hepatitis C antibody Blood (02/16/2024 11:34 AM 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 OPERATOR) Hep C Ab Nonreactive Nonreactive Comment:Antibodies to HCV no t detected. Does NOT exclude the possibility of recent exposure to HCV. Current interpretive data was last revised on 21 Blood 02/16/2024 11:3 4 AM 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 OPERATOR 02/16/2024 11:45 AM 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 OPERATOR us Tonya Hammonds MD LAB MICROBIOLOGY - GENERAL ORDERABLES Final Result [facility] Department [place] [address] * Colonoscopy (07/21/2023 10:23 AM CDT) Anatomical Region Laterality Modality Other Narrative Procedure Note Haritha Stover MD - 07/21/2023 10:23 AM CDT [facility] Patient Name: Bakari Smith Procedure Date: 07/21/2023 10:23 AM Date of : 1980 Admit Type: Outpatient Age: 43 Gender: Female Attending MD: Haritha Stover M.D. Room: [facility] ENDOSCOPY ROOM 02 Note Status: [...] The scope was passed under direct vision.The [id number] Colonoscope was introducedthrough the anus and advanced to the the cecum, identifiedby appendiceal orifice and ileocecal valve. The colonoscopy was performed without difficulty. The patient tolerated the procedure well. The qualityof the bowel preparation was evaluated using the BBPS ([place] Bowel Preparation Scale) with scores of:Right Colon [...] On: 07/21/2023 10:23 AM Recognized by the [employer] for promoting quality in endoscopy Haritha Stover MD ENDOSCOPY PROCEDURES Final Res ult * HM MAMMOGRAPHY (06/04/2021) Impressions Rashida Schneider - 06/04/2021 IMPRESSION: 1. Benign mammogram. READ BY: NINO BAJWA MD 06/05/2021 Historical Provider HEALTH MAINTENANCE Final Result from Last 3 Months or Most Recently Relevant to Health Maintenance
--- OUTSIDE RECORDS SUMMARY | 2025-01-28 07:16 | XMS_ITS | Data Portability ---
Author Organization [facility] Address [address] [place] [place] [address] Care Team Providers Care Product Manager Medical Device Name Role Phone DEYVI ROSALES OTHER JESSIE DICKSON Fish Bait Processing Supervisor [facility] RHEUMATOLOGY Dietary Aide Teacher BETH FERNANDEZ Supervisor Hanging And Trimming ELÍAS MIX Dietary Aide Teacher Assessment No assessment recorded. Plan of Treatment Reminders Order Date Submit Date Provider Last Modified By Organization Details Last Modified Time Details Appointments None recorded. Lab HbA1c (hemoglobin A1c), blood 2023 024 macho In-Office Order, Internal Use Only DO Not Attach Compendium DO Not Attach Compendium, Do Not Delete/merge, [id number] 4 12:47:19 glucose, fingerstick , blood 2023 024 macho In-Office Order, Internal Use Only DO Not Attach Compendium DO Not Attach Compendium, Do Not Delete/merge, [id number] 4 12:47:21 CMP, serum or plasma 2023 024 MAHAMED MAYA, [address], [address], [place], [address], 4 23:07:49 albumin/cre atinine, mass ratio, urine 2023 024 MAHAMED MAYA, [address], [address], [place], [address], 4 10:15:48 TSH, ultra-sensi tive, serum 2023 024 [facility]HAMED [facility], [address], [address], [place], [address], 4 10:15:48 CBC 2023 024 MAHAMED [facility], [address], [address], [place], [address], 4 23:07:50 lipid panel, serum 2023 024 MAHAMED [facility], [address], [place], [address], 4 23:07:48 vitamin D, 25-hydroxy, total, serum 2023 024 MAHAMED [facility], [address], [place], [address], 4 10:15:50 HbA1c (hemoglobin A1c), blood 2022 023 macho In-Office Order, Internal Use Only DO Not Attach Compendium DO Not Attach Compendium, Do Not Delete/merge, [id number] 3 15:31:49 glucose, fingerstick , blood 2022 023 yasara In-Office Order, Internal Use Only DO Not Attach Compendium DO Not Attach Compendium, Do Not Delete/merge, [id number] 3 15:31:48 Referral neurologist referral - Head [...] Orders [facility]abapentin 100 mg capsule 2023 024 [facility] [address] [place], [address], 4 20:08:16 fluticasone propionate 50 mcg/actuati on nasal spray,suspe nsion 2023 024 [facility], [address] [place], [address], 4 12:47:15 montelukast 10 mg tablet 2023 024 [facility], [address] [place], [address], 4 12:47:16 Kym Allergy 180 mg tablet 2023 024 [facility], [address] [place], [address], 4 12:47:15 Colace 100 mg capsule 2023 024 [facility] [address] [place], [address], 4 12:47:15 Lantus Solostar U-100 Insulin 100 unit/mL (3 mL) subcutaneou s pen 2023 024 [facility] [address] [place], [address], 4 12:47:15 OneTouch Ultra Test strips 2023 024 [facility], [address] [place], [address], 4 15:31:16 gabapentin 100 mg capsule 2023 024 [facility], [address] [place] [address], [address], 4 12:47:15 Diflucan 150 mg tablet 2023 024 [facility], [address] [place] [address], [address], 4 12:47:15 Colace 100 mg capsule 2022 023 [facility], [address] [place] [address], [address], 3 15:32:12 polyethylen e glycol 3350 17 gram/dose oral powder 2022 023 [facility], [address] [place] [address], [address], 3 20:15:56 fluticasone propionate 50 mcg/actuati on nasal spray,suspe nsion 2022 023 [facility], [address] [place] [address], [address], 3 15:32:14 montelukast 10 mg tablet 2022 023 [facility] [address] [place] [address], [address], 3 15:32:14 Kym Allergy 180 mg tablet 2022 023 [facility], [address] [place] [address], [address], 3 15:32:13 Lantus Solostar U-100 Insulin 100 unit/mL (3 mL) subcutaneou s pen 2022 023 [facility], [address] [place], [address], 3 15:32:15 Admelog SoloStar U-100 Insulin lispro 100 unit/mL subcutaneou s pen 2022 024 [facility] [address] [place], [address], 4 12:43:37 aspirin 81 mg tablet,juan yed release 2022 023 [facility] [address] [place], [address], 3 14:50:06 Lipitor 80 mg tablet 2022 023 [facility] [address] [place], [address], 3 14:56:45 Patient TargetsNo targets recorded. Patient Instructions Encounter Date Encounter Id Patient Instructions Last Modified By Organization Details Last Modified Time 06/11/2022 [id number] A healthy lifest yle: care instructions yarauz [...] dialysis yarauz Not available 06/11/2022 15:17:16 10/06/2022 [id number] allergies: care instructions yarauz Not available 10/06/2022 [...] medicine yarauz Not available 10/06/2022 15:08:09 02/03/2023 [id number] influenza (flu) vaccine: care instructions yarauz Not [...] diet see dentist every 6 months see collect on delivery clerk every 1-2 years vaccine yarauz Not available 02/03/2023 12:29:16 2023 [id number] allergies: care instructions yarauz Not available 2023 [...] medicine yarauz Not available 2023 12:31:18 09/08/2023 [id number] A healthy lifest yle: care instructions [email or web address] Not available 09/08/2023 20:08:14 Consider use of rae, kenyon, peppermint, coriander, fennel and cayenne pepper to stimulate your appetite. Lemon helps with limited taste. Please talk to your providers about being hungry but not having desire to eat. [email or web address] Not available 09/08/2023 20:08:14 Reason for Referral [...] eosin ophil s, auto, blood , absol moapa eosinophils, auto, blood, absolute 492.5 text: 0.0-70 [...] eosin ophil s, auto, blood , absol moapa eosinophils, auto, blood, absolute 364 text: 0.0-70 [...] DO Not Attach Compendium, Do Not Delete/merge, [id number] 10/06/2022 14:28:33 10/07/1910/06/2022 gluco se, finge rstic k, blood Blood Glucose: mg/dl 162 Not Available In-Off ice Order Internal Use Only DO Not Attach Compendium DO Not Attach Compendium, Do Not Delete/merge, [id number] 10/06/2022 14:28:35 03/04/19 24 03/04/2023 alumi num, [...] eosin ophil s, auto, blood , absol moapa eosinophils, auto, blood, absolute 219 text: 0.0-70 [...] Available [facility] [address] [place], [address], 2023 23:07:48 03/12/19 24 2023 LIPID PANEL triglyceride s 78 mg/dL 0-149 Not Available [facility] Department [address] [place], [address], 2023 23:07:48 03/12/19 24 2023 LIPID PANEL HDL cholesterol 70 mg/dL 40-999 Not Available [facility] Department [address] [place], [address], 2023 23:07:48 03/12/19 24 2023 LIPID PANEL VLDL cholesterol bertrand 16 mg/dL 5-40 Not Available [facility] Department [address] [place], [address], 2023 23:07:48 03/12/19 24 2023 LIPID PANEL LDL chol calc ([facility]) 96 mg/dL 0-99 Not Available [facility] Department [address] [place] [address], [address], 2023 23:07:48 03/12/19 24 2023 COMP. METAB OLIC PANEL (14) glucose 101 mg/dL 70-99 above high normal Not Available [facility] [address] [place] [address], [address], 2023 23:07:49 03/12/19 24 2023 COMP. METAB OLIC PANEL (14) BUN 46 mg/dL 6-24 above high normal Not Available [facility] [address] [place] [address], [address], 2023 23:07:49 03/12/19 24 2023 COMP. METAB OLIC PANEL (14) creatinine 12.18 mg/dL 0.76-1 .27 panic high RESUL TS VERIF IED AND SAUCEDA D TO DR MAYRA TALLEY ON BY Jesse bazzi, CPT AT 2108 ON 03/12. Not Available [facility] [address] [place] [address], [address], 2023 23:07:49 03/12/19 24 2023 COMP. METAB [...] Not Available [facility] [address] [place] [address], [address], 2023 23:07:49 03/12/19 24 2023 COMP. METAB OLIC PANEL (14) BUN/creatini ne ratio 4 9-23 below low normal Not Available [facility] [address] [place] [address], [address], 2023 23:07:49 03/12/19 24 2023 COMP. METAB OLIC PANEL (14) sodium 142 mmol/ L 134-14 4 Not Available [facility] [address] [place] [address], [address], 2023 23:07:49 03/12/19 24 2023 COMP. METAB OLIC PANEL (14) potassium 4.6 mmol/ L 3.5-5. 2 Not Available [facility] [address] [place] [address], [address], 2023 23:07:49 03/12/19 24 2023 COMP. METAB OLIC PANEL (14) chloride 102 mmol/ L 96-106 Not Available [facility] [address] [place] [address], [address], 2023 23:07:49 03/12/19 24 2023 COMP. METAB OLIC PANEL (14) carbon dioxide, total 26 mmol/ L 20-29 Not Available [facility] [address] [place] [address], [address], 2023 23:07:49 03/12/19 24 2023 COMP. METAB OLIC PANEL (14) calcium 9.6 mg/dL 8.7-10 .2 Not Available [facility] [address] [place] [address], [address], 2023 23:07:49 03/12/19 24 2023 COMP. METAB OLIC PANEL (14) protein, total 7.0 g/dL 6.0-8. 5 Not Available [facility] [address] [place] [address], [address], 2023 23:07:49 03/12/19 24 2023 COMP. METAB OLIC PANEL (14) albumin 3.7 g/dL 3.9-4. 9 below low normal Not Available [facility] [address] [place] [address], [address], 2023 23:07:49 03/12/19 24 2023 COMP. METAB OLIC PANEL (14) globulin, total 3.3 g/dL 1.5-4. 5 Not Available [facility] [address] [place] [address], [address], 2023 23:07:49 03/12/19 24 2023 COMP. METAB OLIC PANEL (14) A/G ratio 1.0 1.2-2. 2 below low normal Not Available [facility] [address] [place] [address], [address], 2023 23:07:49 03/12/19 24 2023 COMP. METAB OLIC PANEL (14) bilirubin, total 0.2 mg/dL 0.0-1. 2 Not Available [facility] [address] [place] [address], [address], 2023 23:07:49 03/12/19 24 2023 COMP. METAB OLIC PANEL (14) alkaline phosphatase 161 IU/L 44-121 above high normal Not Available [facility] [address] [place] [address], [address], 2023 23:07:49 03/12/19 24 2023 COMP. METAB OLIC PANEL (14) AST (SGOT) 17 IU/L 0-40 Not Available [facility] Department [address] [place] [address], [address], 2023 23:07:49 03/12/19 24 2023 COMP. METAB OLIC PANEL (14) ALT (SGPT) 15 IU/L 0-32 Not Available [facility] Department [address] [place] [address], [address], 2023 23:07:49 03/12/19 24 2023 CBC, NO DIFFE RENTI AL/PL ATELE T WBC 9.4 x10e3 /uL 3.4-10 .8 Not Available [facility] [address] [place], [address], 2023 23:07:50 03/12/19 24 2023 CBC, NO DIFFE RENTI AL/PL ATELE T RBC 4.11 x10e6 /uL 3.77-5 .28 Not Available [facility] [address] [place], [address], 2023 23:07:50 03/12/19 24 2023 CBC, NO DIFFE RENTI AL/PL ATELE T hemoglobin 10.9 g/dL 11.1-1 5.9 below low normal Not Available [facility] [address] [place], [address], 2023 23:07:50 03/12/19 24 2023 CBC, NO DIFFE RENTI AL/PL ATELE T hematocrit 36.5 % 34.0-4 6.6 Not Available [facility] [address] [place], [address], 2023 23:07:50 03/12/19 24 2023 CBC, NO DIFFE RENTI AL/PL ATELE T MCV 89 fL 79-97 Not Available [facility] [address] [place], [address], 2023 23:07:50 03/12/19 24 2023 CBC, NO DIFFE RENTI AL/PL ATELE T MCH 26.5 pg 26.6-3 3.0 below low normal Not Available [facility] [address] [place], [address], 2023 23:07:50 03/12/19 24 2023 CBC, NO DIFFE RENTI AL/PL ATELE T MCHC 29.9 g/dL 31.5-3 5.7 below low normal Not Available [facility] [address] [place], [address], 2023 23:07:50 03/12/19 24 2023 CBC, NO DIFFE RENTI AL/PL ATELE T RDW 13.8 % 11.5-1 4.5 Not Available [facility] [address] [place], [address], 2023 23:07:50 03/12/19 24 2023 CBC, NO DIFFE RENTI AL/PL ATELE T NRBC 0 % 0-0 Not Available [facility] [address] [place], [address], 2023 23:07:50 03/12/19 24 03/13/2023 ALBUM IN/CR EATIN INE RATIO ,URIN E creatinine, urine 104.7 mg/dL notest ab. Not Available [facility]) [address] [facility] [address], [place], [address], 03/13/2023 10:15:47 03/12/19 24 03/13/2023 ALBUM IN/CR EATIN INE RATIO ,URIN E albumin, urine 511.4 ug/mL notest ab. Resul ts confi rmed on dilut ion. Not Available [facility] ([facility]) [address] [facility], [place], [address], 03/13/2023 10:15:47 03/12/19 24 03/13/2023 ALBUM IN/CR EATIN INE RATIO ,URIN E alb/creat ratio 488 mg/g_ creat 0-29 above high normal Kimberly l: 0 - 29 Moder ately incre ased: 30 - 300 Sever naima incre ased: >300 Not Available [facility] ([facility]) [address] [facility], [place], [address], 03/13/2023 10:15:47 03/12/19 24 03/13/2023 TSH RFX ON ABNOR MAL TO FREE T4 TSH 2.130 uIU/m L 0.450- 4.500 Not Available [facility] ([facility]) [address] [facility], [place], [address], 03/13/2023 10:15:48 03/12/19 24 03/13/2023 VITAM IN [...] um and D. Leobardo karimi [place]: The [facility] . 2. Jarrett boswell MF, Hailee burgess [place], Alma Delia off-F errar i BAUMANN, et al. Evalu ation , treat ment, and preve ntion of vitam in D defic iency : an Endoc rine Socie ty clini bertrand pract ice guide line. JCEM. 2010; 96(7) :1911 -30. Not Available [facility] ([facility]) [address] [facility], [place], [address], 03/13/2023 10:15:49 03/12/19 24 2023 HbA1c (hemo globi n A1c), blood HbA1c 6.4 Not Available In-Office Order Internal Use Only DO Not Attach Compendium DO Not Attach Compendium, Do Not Delete/merge, [id number] 2023 11:51:02 03/12/19 24 2023 gluco se, finge rstic k, blood Blood Glucose: mg/dl 178 Not Available In-Off ice Order Internal Use Only DO Not Attach Compendium DO Not Attach Compendium, Do Not Delete/merge, [id number] 2023 11:51:04 04/01/19 24 04/01/2023 iron- monty [...] eosin ophil s, auto, blood , absol moapa eosinophils, auto, blood, absolute 545 text: 0.0-70 [...] eosin ophil s, auto, blood , absol moapa eosinophils, auto, blood, absolute 411 text: 0.0-70 [...] eosin ophil s, auto, blood , absol moapa eosinophils, auto, blood, absolute 446 text: 0.0-70 [...] eosin ophil s, auto, blood , absol moapa eosinophils, auto, blood, absolute 614 text: 0.0-70 [...] eosin ophil s, auto, blood , absol moapa eosinophils, auto, blood, absolute 414 text: 0.0-70 [...] eosin ophil s, auto, blood , absol moapa eosinophils, auto, blood, absolute 415 text: 0.0-70 [...] eosin ophil s, auto, blood , absol moapa eosinophils, auto, blood, absolute 753 text: 0.0-70 [...] eosin ophil s, auto, blood , absol moapa eosinophils, auto, blood, absolute 382 text: 0.0-70 [...] eosin ophil s, auto, blood , absol moapa eosinophils, auto, blood, absolute 429 text: 0.0-70 0.0 Not Available Not Available 11/04/2024 14:06:04 07/30/19 25 07/29/2024 eosin ophil s, auto, blood , absol moapa eosinophils, auto, blood, absolute 429 text: 0.0-70 [...] eosin ophil s, auto, blood , absol moapa eosinophils, auto, blood, absolute 270 text: 0.0-70 [...] eosin ophil s, auto, blood , absol moapa eosinophils, auto, blood, absolute 496 text: 0.0-70 [...] eosin ophil s, auto, blood , absol moapa eosinophils, auto, blood, absolute 496 text: 0.0-70 [...] 25 10/13/2024 SJS CYTOL OGY sjs cytology [facility] atory Medic ine [address] [place] [address] Telep karissa: , exten [place] [phone] 07 Patho logy Repor t Non-g yneco logic Cytol ogy Repor t Name: DOMINGA ZAMBRANO Speci men #: [id number] Age: [id number] (Age: 44) Locat ion: [facility] Sex: F Proce dure Date: 2024 Hospi ozzie #: [id number] Date Recei wesley: 2024 Date Repor [...] devel oped by and perfo rmed at [facility] , [address], [place] [address] . All tests repor graeme here have [...] and sign out were perfo rmed at [facility], [address] , [place] [address] . Kristel ctron icall y Mayuri d Out Guillermo kennedy M.D. Not Available [facility] (Lab) [address], [place], [address], 10/25/2024 16:28:00 10/14/19 25 10/13/2024 gluco se, [...] zed in maria dolores rison to blood sarha ntrat ions of the natalie te as appro priat e. Not Available Not Available 11/04/2024 14:03:38 10/14/19 25 10/13/2024 cell count , body fluid nucleated cells, count, body fluid (obs) 34638 text: cells/ uL The refer ence range [...] ED BACK BY DELFINO MINER AT 1042 [id number] DY Not Available Not Available 14:03:38 [...] t [facility] [place] [place] [id number] 2 on 10/15 08:36 :21, and has [...] Diagn ostic s [facility], [address] , [place], [place] Rashid M.D., Ph.D. , [facility] [place] [facility] , CLIA [id number] Not Available Not Available 11/04/2024 14:03:43 10/19/1910/21/2024 DRVVT CONFI RMATI ON drvvt confirmation Negati ve text: negati ve Test Perfo rmed by [place], [facility], [address], [place] Rashid M.D., Ph.D. , [facility] [place] atori es [phone], CLIA [id number] Not Available Not Available 11/04/2024 14:03:43 10/19/1910/21/2024 lupus antic oagul ant neutr gage tion hexag onal phase phosp holip id, plate let poor plasm a lupus anticoagulan t neutralizati on hexagonal phase phospholipid , platelet poor plasma POSITI VE text: negati ve abnormal Test Perfo rmed by [place], [facility], [address] [facility], [place] Rashid M.D., Ph.D. , [facility] [place] [facility] , CLIA [id number] [id number] Not Available Not Available 11/04/2024 14:03:43 10/19/1910/21/2024 [...] Diagn ostic s [facility], [address] [address] [facility], [place] Rashid M.D., Ph.D. , [facility] [place] atori es , CLIA [id number] [address]13 Not Available Not Available 11/04/2024 14:03:43 10/19/19 25 10/20/2024 antit hromb in activ ity, plasm a antithrombin activity, plasma 89 text: 80 - 135 % normal Test Perfo rmed by [employer] [place], [facility], [address] [facility] [place], [place] Patjacques Rashid M.D., Ph.D. , [facility] [place] atori es , CLIA [id number] [address]6931 Not Available Not Available 11/04/2024 14:03:43 10/19/19 [...] Diagn ostic s [facility], [address] [facility] [place] [place] Rashid M.D., Ph.D. , [facility] [place] atori es [phone], CLIA [id number] Not Available Not Available 11/04/2024 14:03:43 10/19/19 25 10/20/2024 prote in S activ ity, plasm a lab interpretati on Abnorm al Not Available Not Available 14:03:43 10/19/19 25 10/20/2024 prote in C activ ity, plasm a protein C activity, plasma 137 text: 70 - 180 % normal Test Perfo rmed by [place], [facility], [address] , [place], [place] Scott Rashid M.D., Ph.D. , [facility] jaydeni shaniqua [phone], CLIA [id number] Not Available Not Available 11/04/2024 14:03:43 10/19/19 [...] , SCL70 , JO1, CENTR OMERE , CIS COORDINATOR HISTO NE MUST BE ORDER ED SEPAR [...] 25 10/20/2024 patho logy study pathology study [facility] Depart ment of [facility] ne [address] [place] [address] Teleph one: [phone], extens ion [id number] Pathol ogy Report Periph eral Smear Report Name: MONI SMART en #: [id number] Age: [birth year] (Age: 44) Locati on: [id number] SG Sex: F Proced ure Date: Hospit al #: [id number] Date Receiv ed: Date Report ed: Provid er: MAXINE PAZ MD PHD MELL ARTHUR MD Source : [facility] eral blood Clinic al Histor y: Leukoc [...] was interp reted and signed out at [facility], [address] [place] [address]. Not Available Not Available 14:03:42 10/20/19 25 10/19/2024 SJS CYTOL OGY [facility] [address] [place] [place] [address] Telep karissa: , exten [place] [phone] Patho logy Repor t Non-g yneco logic Cytol ogy Repor t Name: DOMINGA ZAMBRANO Speci men #: [id number] Age: [birth year] (Age: 44) Locat ion: [facility] Sex: F Proce dure Date: 2024 Hospi ozzie #: [id number] Date Recei wesley: 2024 Date Repor graeme: 2024 Provi abdirahman: YOSEF WEN MD MAXINE P JEROM E MD PHD [facility] e: PLEUR AL FLUID , LEFT [...] and sign out were perfo rmed at [facility], [address] , [facility] [address] . Kristel ctron icall y Mayuri d Out TEJAL LYONS MD Not Available [facility] (Lab) [address] [facility], [place], [address], 10/21/2024 12:00:58 10/20/19 25 10/19/2024 SJS CYTOL OGY [facility]js cytology [facility] [address] [place] [address] Telep karissa: [phone], exten [place] 07 Patho logy Repor t Non-g yneco logic Cytol ogy Repor t Name: DOMINGA ZAMBRANO Speci men #: [id number] Age: 119[birth year] (Age: 44) Locat ion: [facility] Sex: F Proce dure Date: 2024 Hospi ozzie #: [id number] Date Recei wesley: 2024 Date Repor [...] and sign out [facility], [address] [place] [address], [place] [address] . Kristel ctron icall y Mayuri d Out XIANG JUAN MD Not Available [facility] (Lab) [address] [facility], [place], [address], 10/25/2024 13:26:17 10/20/1910/19/2024 gluco se, QN, test [...] body fluid erythrocytes , qn, body fluid 60218 text: cells/ uL The refer ence range [...] + scree n, blood blood unit number [id number] Not Available Not Available 14:03:44 10/20/19 [...] type + scree n, blood issue date/time [id number] Not Available Not Available 14:03:44 10/20/19 25 10/20/2024 type + scree n, blood product code [id number] Not Available Not Available 14:03:44 10/20/19 [...] resul t has [place] [id number] on 10/19 07:28 :06, and has [...] 0.55 - 1.02 mg/dL critical high NOT SAUCEAD D PER CRITI BERTRAND VALUE POLIC Y [...] eosin ophil s, auto, blood , absol moapa eosinophils, auto, blood, absolute 566 text: 0.0-70 [...] abdom en No observ ation record ed. [facility] [address], [place], [address], 10/06/2022 15:11:10 06/16/19 23 06/14/2022 CT, abdom en + pelvi s, w/o contr ast No observ ation record ed. [place] [id number] [facility] [address], [place], [address], 10/06/2022 15:11:10 11/02/19 23 11/01/2022 XR, chest , 1 view No observ ation record ed. [place] [id number] [facility] [address], [place], [address], 11/05/2022 17:56:22 01/10/20 23 12/25/2022 MRI, abdom en + pelvi s, w/wo contr ast No observ ation record ed. [facility] - Gynecologic Oncology [address] [place] [address], [address], 01/12/2023 10:36:39 03/19/19 24 03/17/2023 MAMMO , scree lexx, bilat eral No observ ation record ed. [facility] Department [address] [place], [address], 03/24/2023 14:16:33 06/19/19 24 06/19/2023 US, duple x, arter ial, upper extre mity No observ ation record ed. [place] [facility] [address], [place], [address], 07/02/2023 11:53:57 11/15/19 25 11/14/2024 MAMMO , scree lexx, bilat eral No observ ation record ed. [facility] [address] [place], [address], 12/09/2024 13:03:21 11/15/19 25 11/14/2024 MAMMO , scree lexx, bilat eral No observ ation record ed. [facility] [address] [place], [address], 11/18/2024 14:21:38 Result Notes None recorded. Problems Name Problem SNOMED Code Status Onset Date Resolution Date Notes Provider Name and Address Organization Details Recorded Time Anterior knee pain 828706506 Completed 07/09/2017 Danica Al[place] [facility] 8 16:14:18 Uncontro lled type 2 diabetes mellitus 522386685 Active Giselle remy [place] [facility] 2 10:42:39 Painful mouth 607812723 Completed 11/22/2014 Giselle Betancour t [place] [facility] 6 10:27:39 Knee pain Completed 07/09/2018 Danica Al[place] [facility] 9 11:36:54 Right upper quadrant pain 249712935 Completed 07/09/2017 Danica [place] [facility] 8 16:17:24 Epigastr ic pain 38557154 Completed 07/09/2017 Danica [place] [facility] 8 16:18:28 Heartbur n 32051555 Completed 07/09/2017 Danica [place] [facility] 8 16:13:45 Flatulen t dyspepsi a 771988709 Completed 07/09/2017 Dan[place] [facility] 8 16:17:14 Diabetes mellitus 94735448 Completed 11/22/2014 Giselle [place] [facility] 6 10:27:39 Helicoba cter detected in blood 540100056 Completed 07/09/2017 Danica [place] [facility] 8 16:13:50 Acute peptic ulcer 242769547 Completed 07/09/2017 Dan[place] [facility] 8 16:13:58 Patellof emoral osteoart hritis 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 Active Giselle remy [place] [facility] 2 10:44:24 Infestat ion by Sarcopte s scabiei ernesto hominis 952978327 Completed 11/22/2014 Dan[place] [facility] 8 16:13:39 Thigh pain 62783647 Completed 07/09/2017 Dan[place] [facility] 8 16:18:22 Diabetic peripher al neuropat hy 805751663 Active Giselle remy [place] [facility] 2 10:43:41 Infestat ion by Sarcopte s scabiei ernesto hominis 755025843 Completed 07/09/2017 Dan[place] [facility] 8 16:13:39 Osteoart hritis of knee 512072369 Active DENNY Chavez[place] [facility] 2 10:44:14 Bronchit is 50908449 Completed 07/09/2017 Dan[place] [facility] 8 16:17:39 Acute bronchit is 02172729 Completed 07/09/2017 Dan[place] [facility] 8 16:13:34 Allergic rhinitis 60734747 Active Giselle rem[place] [facility] 2 10:42:02 Eruption 025646306 Completed 07/09/2017 Dan[place] [facility] 8 16:17:18 Otitis media 63529132 Completed 201607/09/2017 Dan[place] [facility] 8 16:18:08 Acute conjunct ivitis 58341814 Completed 201607/09/2017 Dan[place] [facility] 8 16:17:46 Acute laryngit is 0159821 Completed 201607/09/2017 Dan[place] [facility] 8 16:18:18 Hyperten sive disorder 22974521 Active 2018 Giselle remy [place] [facility] 2 10:42:15 Chronic kidney disease stage 3 680452767 Completed 201804/18/2021 follows with Ivonne Fernandez at [facility] Danica Al[place] [facility] 2 12:05:25 Gastroes ophageal reflux disease 946509768 Active 2020 Giselle remy, [place] [facility] 2 10:42:49 Irritabl e bowel syndrome 19863232 Active 2020 Giselle remy, [place] [facility] 2 10:44:10 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 163257390 Active 2021 Giselle remy, [place] [facility] 2 10:41:58 Vitamin D deficien cy 83241181 Active 2021 Giselle remy, [place] [facility] 2 10:42:32 Family history of malignan t neoplasm of breast in first degree relative 408298141 Active 2021 Jessie Dickson [facility] Attn: Kerry g,[address] [place], [address], [place] [facility] 2 11:34:39 Cyst of left ovary 10318079067 076754 Active 2021 Giselle remy [place] [facility] 2 10:45:06 Morbid obesity 383264583 Active 2021 Giselle remy, [place] [facility] 2 10:42:28 Pelvic mass 35268792 Active 2021 Jessie Dickson [facility] Attn: Accountin g,[address] [place], [address], [place] [facility] 2 11:34:39 Chronic constipa tion 358696903 Active 2021 Giselle remy, [place] 2 10:42:07 History of optic neuritis 86200821796 774091 Active 2021 Giselle remy MA null, [place] - [facility] 2 10:44:00 Bereavem ent 95739800 Active 2021 JOHN Topete Attn: Accountin g,[address] [facility], [place], [address], [facility] - [facility] 2 12:54:36 Body mass index 30+ - obesity 360523979 Active 2021 Danica Alvarez RN null, [facility] 3 14:27:16 History of cerebrov ascular accident 732591364 Active 2022 JOHN Topete Attn: Accountin g,[address] [facility], [place], [address], [facility] - [facility] 3 15:13:27 Mass of right breast 00882697459 730517 Active 2022 JOHN Topete Attn: Accountrosemary g,[address] [facility], [place], [address], [facility] - SI 3 12:28:12 Obesity 982920355 Active 2023 JOHN Topete Attn: Accountin g,[address] [facility], [place], [address], [facility] - SI 4 12:29:07 Problem Notes None recorded. Procedures Surgical History Date Name Laterality Status Provider Name and Address Organization Details Recorded Time 06/05/19 22 Date of Last Mammogram completed Danica Alvarez RN [facility] 10/06/2022 14:29:46 03/21/19 22 Date of Last Pap Smear completed Danica Alvarez RN [facility] 10/06/2022 14:43:25 03/14/19 22 oophorectomy completed JOHN Topete Attn: Accounting,[address] [facility], [place], [address], [place] [facility] 03/21/2021 14:05:13 03/14/19 22 laparoscopic insertion of peritoneal dialysis catheter completed JOHN Topete Attn: Accounting,[address] , [place], [address], [place] [facility] 03/21/2021 14:03:20 03/20/19 16 Joint Injection completed Tomer Boles MD [address] [place], [address], [place] [facility] 03/20/2015 11:44:06 12/20/19 15 Joint Injection completed Tomer Boles MD [address] [place], [address], [facility] - [facility] 12/19/2014 12:04:38 02/23/18 95 Caesarean Section completed Danica Alvarez RN [facility] 06/07/2014 16:13:25 02/23/18 94 Caesarean Section completed Danica Alvarez RN [facility] 06/07/2014 16:13:25 02/23/18 92 Caesarean Section completed Danica Alvarez RN [facility] 06/07/2014 16:13:25 Imaging Results None recorded. Procedure Notes None recorded. Medical Equipment None Reported. Allergies Allergen ID Allergen Name Allergen Category Reaction Reaction Severity Criticality Documentation Date Start Date Code Code System Note Provider Name and Address Organization Details Recorded Time 36383 Flagyl medicatio n hives Not available Not available 07/06/2014 6 RxNorm Michael taylor [facility] 5 12:31:18 42887 omeprazol e medicatio n rash Not available Not available 11/22/2014 7646 RxNorm Sep 2014 DELFINO Henriquez, [facility] 5 12:29:46 Medications Name Sig Start [...] e 50 mcg/actua tion nasal spray,fernando pension Dewy Rose 1 spray twice a day by intranas [...] Vitals Date Recorded Body height Oxygen saturation Heart rate Body temperature Body mass index (BMI) Body weight Systolic And Diastolic Provider Name and Address Organization Details Last Updated DateTime 4 160.02 cm 100 % 68 /min 98.1 [degF] 32.6 kg/m2 29164.4 g 140/90 mm[Hg] Giselle remy [place] [facility] 4 11:59:24 Date Recorded Body height Body mass index (BMI) Body weight Oxygen saturation Heart rate Body temperature Systolic And Diastolic Provider Name and Address Organization Details Last Updated DateTime 3 160.02 cm 36.3 kg/m2 78143.4 4 g 99 % 86 /min 98.1 [degF] 140/90 mm[Hg] Giselle remy MA [facility] 3 14:15:58 Date Recorded Body height Body mass index (BMI) Body weight Oxygen saturation Heart rate Respiratory rate Body temperature Systolic And Diastolic Provider Name and Address Organization Details Last Updated DateTime 4 160.02 cm 32.1 kg/m2 40933.2 2 g 100 % 68 /min 16 /min 98.1 [degF] 184/90 mm[Hg] Asad Mcfarlane MA [facility] 4 19:40:59 Date Recorded Body height Body mass index (BMI) Body weight Heart rate Body temperature Systolic And Diastolic Provider Name and Address Organization Details Last Updated DateTime 3 160.02 cm 33.5 kg/m2 69247.9 6 g 80 /min 97.9 [degF] 120/74 mm[Hg] Danica Alvarez RN [facility] 3 14:52:55 Date Recorded Body height Body mass index (BMI) Body weight Body temperature Oxygen saturation Heart rate Systolic And Diastolic Provider Name and Address Organization Details Last Updated DateTime 3 160.02 cm 32.1 kg/m2 43006.6 2 g 98.5 [degF] 98 % 74 /min 122/70 mm[Hg] Giselle remy MA [facility] 3 11:37:24 Social History Question Answer Notes LastModified by Organizat ion Details LastModified Time Tobacco Smoking Status Never Smoker Danica Alvarez RN [facility], [facility] 06/07/2014 16:13:25 Do You Have An [...] not available 04/18/2021 What is your occupation? [employer] Information not available 06/07/2014 What is your exercise level? None Information not available 04/18/2021 Mental Status Question Answer Note LastModified by Organization D etails LastModified Time Do you feel stressed (tense, restless, nervous, or anxious, or unable to sleep at night)? [id number] Information not available 03/21/2021 Family History Relationship [...] pneumococcal polysaccharide PPV23 8 completed Not Available [facility] 2019 02:45:24 Tdap 8 completed Not Available [facility] 2019 02:35:23 Pneumococcal conjugate PCV 13 2 completed Danica Alvarez RN null, [place] [facility] 04/19/2021 09:45:40 Hep B, adult 2 completed Danica Alvarez RN null, [place] [facility] 04/19/2021 09:44:41 Influenza, split virus, quadrivalent, preservative 2 completed Alonzo Reynolds MD Attn: Accounting,[address] [place], [address], [facility] - [facility] 12/30/2021 15:50:00 Hep B, adult 3 completed JOHN Topete Attn: Accounting,[address] [place], [address], [place] [facility] 10/07/2022 09:34:18 Influenza, split virus, quadrivalent, preservative 3 completed Cordelia Alexander [place], [place] [facility] 02/03/2023 13:00:18 Hep B, adult 4 completed JOHN Topete Attn: Accounting[address] [place], [place], [address] [place] [address], [place] [facility] 2023 15:26:13 Pneumococcal conjugate PCV20, polysaccharide [id number] conjugate, adjuvant, PF 4 completed Jessie Dickson, 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- Attn: Accounting[address] [facility], [place], [address], [facility] - SI 2023 15:26:13 Past Encounters Encounter ID Performer Location Encounter Start Date Encounter Closed Date Diagnosis/Indication Diagnosis SNOMED-CT Code Diagnosis ICD10 Code Diagnosis IMO Codes Diagnosis Note [id number] Waldemar La MD [facility] [address], [place] [address] 06/07/2014 15:52:20 06/08/2014 15:51:04 Anterior knee pain 335808379 06/04/2014 left knee xray=moder ate joint effusion otherwise normal 05/05/2014 left knee xray=joint effusion otherwise normal 11/24/2013 left knee xray=kimberly l the patient has not gone to PT which was ordered back in 10/2013 as something came up advised weight loss stressed to take Gabapentin 300mg tid daily not prn Uncontroll ed type 2 diabetes mellitus 663051343 the patient follows with Dr. Catherine Gaytan Endocrinol ogy at [place]. The patient is non compliant with treatment and management of DM2 [id number] Kingsley Cardenas MD [address] [address] 06/20/2014 17:46:17 06/21/2014 09:46:05 Painful mouth 629228378 antibiotic s and follow up Knee pain 90446987 sees or tho August 15... pain meds and follow up [id number] Waldemar La MD [facility] [address], [place] [address] 07/06/2014 12:15:55 07/11/2014 13:25:20 Right upper quadrant pain 400754634 06/29/2014 CT of ABD/PELVIS showed a contracted Gallbladde r 07/03/2014 GB u/S = NORMAL Completed 1 week of daily Omeprazole BRAT diet avoid spicy foods or anything aggravatin g Epigastric pain 31304518 Heartburn 10376697 Flatulent dyspepsia 198677693 Diabetes mellitus 67875656 Patient follows up with ENDOCRINOL DENIS AT [facility] for this problem--s he is to continue to follow up with that office for this medical problem. [id number] Waldemar La MD [facility] [address], [place] [address] 07/19/2014 16:17:50 07/21/2014 16:53:41 Knee pain 99786430 see orthopedic s stop Ibuprofen for now will give some Tramadol for pain until seen by Ortho Continue PT Patient to discuss Rx for brace with Ortho Acute peptic ulcer 209156869 complete Triple therapy keep apt with GI Avoid aggravatin g foods [id number] Tomer Boles MD [facility] [address] [place] [address] 08/15/2014 09:14:17 08/16/2014 12:02:00 Patellofemoral osteoarthritis 194818922 [id number] [facility]ie [facility]onReplaced by [facility] [address], [place] [address] 10/02/2014 13:49:33 10/09/2014 12:46:07 Infestation by Sarcoptes scabiei ernesto hominis [id number] Jessie DicksonReplaced by [facility] [address], [place] [address] 11/22/2014 12:15:53 11/23/2014 17:10:01 Thigh pain 74275925 Increase Gabapentin 600mg bid to tid Keep blood sugars in the low 100's weight loss, exercise diabetic neuropathy informatio n discussed and handout given Knee pain 04897542 see orthopedic s--as patient voices difficulty in getting an appointmen t RN has helped to get appt. and patient is now scheduled for 12/19/2014 --keep appointmen t weight loss/ROM exercises at home Use brace as directed Diabetic p eripheral neuropathy 305255118 Uncontroll ed type 2 diabetes mellitus 642039366 the patient follows with Dr. Catherine Gaytan Endocrinol ogheather at [place]. The patient is non compliant with treatment [...] with endocrinol ogist at [place] prn [id number] Tomer Boles MD [facility] [address] [place] [address] 12/19/2014 10:37:52 12/19/2014 16:01:48 Knee pain 00059019 M25.569 Patellofem oral osteoarthritis 444224422 M17.9 Infestatio n by Sarcoptes scabiei ernesto hominis 079958272 B86 [id number] Tomer Boles MD [facility] [address] [place] [address] 03/20/2015 09:57:27 03/20/2015 13:54:02 Osteoarthritis of knee 308131832 M17.9 Anterior knee pain 60053 3006 M25.569 [id number] Jessie Dickson [facility] [address] [place] [address] 06/07/2015 10:25:17 06/11/2015 17:59:47 Adult health examination 100807278 Z00.01 Acute bronchitis 1103669 2 J20.9 Allergic rhinitis 070617 04 J30.9 Uncontroll ed type 2 diabetes mellitus 405705840 E11.65 the patient follows with Dr. Catherine Gaytan Endocrinol ogy at [place]. The patient reports she is now compliant [...] fos fasting labs which she will get [facility] Medication monitoring 39 7523372 Z51.81 Patient was started on B/P medicine Lisinopril 5mg once daily per Nawaf black NP on 04/10/2015= =she was given 11 RF and still using first bottle [id number] Carmelo Shore PA-C [address] [address] 05/31/2015 17:04:34 06/16/2015 13:13:12 Bronchitis 00731987 J40 [id number] Waldemar La MD [address] [address] 08/17/2015 18:18:44 08/21/2015 03:47:53 Eruption 886729616 R21 [id number] Carmelo Shore PA-C [address] [address] 04/24/2016 17:43:51 04/25/2016 17:15:56 Otitis media 95086981 H66.91 Acute conjunctivitis 537 34811 H10.31 Acute laryngitis 7158361 J04.0 viral [id number] Max Mayes MD [facility] [address] [place] [address] 07/09/2017 15:52:35 07/10/2017 10:25:39 Gynecologic examination 19603053 Z01.411 Self breast exam calcium rich foods handout vitamin D 2000 iu daily exercise weight loss diet Administra tion of pneumococcal vaccine 60794915 Z23 Administra tion of diphtheria, pertussis, and tetanus vaccine 280304723 Z23 Morbid obesity 700375733 E66.01 Cyst of left ovary 55689 50962 0109401 N83.202 Uncontroll ed type 2 diabetes mellitus 888401728 E11.65 the patient follows with Dr. Catherine Gaytan Endocrinol ogy at [place]. The patient reports she is now compliant with treatment and management of DM2 2/2 to issues with her medication s not covered by insurance per patient report discussed ramificati ons of uncontroll ed DM and neuropathy symptoms patient is to call follow up with Endocrinol ogist for management of this problem Family his tory of malignant neoplasm of breast in first degree relative 741046137 Z80.3 Patient refuses referral for genetic testing [id number] Max Mayes MD [facility] [address] [place] [address] 09/23/2017 12:32:53 09/30/2017 18:12:11 Vaginitis 13829325 N76.0 Candidal vulvovaginitis 66604519 B37.3 [id number] Max Mayes MD [facility] [address] [place] [address] 07/09/2018 11:53:24 07/12/2018 10:40:14 Gynecologic examination 72835167 Z01.411 Self breast exam calcium rich foods handout vitamin D 2000 iu daily exercise weight loss diet Last pap 07/09/2017 normal due in 2020 Morbid obesity 346826059 E66.01 40.7 bmi Cyst of left ovary 34989 46875 9579364 N83.202 Uncontroll ed type 2 diabetes mellitus 506691294 E11.65 g the patient follows with Dr. Catherine Gaytan Endocrinol ogy at [place]. The patient reports she is now compliant [...] neoplasm of breast in first degree relative 974087199 Z80.3 Patient's mother had breast cancer at 40 y/o Screening for malignant neoplasm of breast 193555314 Z12.31 Patient's mother had breast cancer at 40 y/o Adjustment disorder with depressed mood 14591117 F43.21 psychother [facility] list [id number] Alonzo Reynolds MD [facility] [address] [place] [address] 03/21/2021 11:24:25 03/22/2021 06:47:39 Gynecologic examination 93586805 Z01.411 Self breast exam calcium rich foods handout vitamin D 2000 iu daily exercise weight loss diet Last pap 07/09/2017 normal Morbid obesity 593019804 E66.01 39.4 bmi Cyst of left ovary 25606 00495 5163235 N83.202 Uncontroll ed type 2 diabetes mellitus 005287044 E11.65 the patient is currently not following with anyone for this problem the patient now [place] with [facility] [place] using LantusHydr alazine 100mg bidLisinop ril 20mg daily Family his tory of malignant neoplasm of breast in first degree relative 001919508 Z80.3 Patient's mother had breast cancer at 40 y/oPATIENT WAS REFERRED TO COUNSELING BUT THE PATIENT DID NOT FOLLOW THRU Screening for malignant neoplasm of breast 520236644 Z12.31 Patient's mother had breast cancer at 40 y/o Adjustment disorder with depressed mood 08535930 F43.21 psychother apist list Hypertensive disorder 38 094901 I10 BP Goal: Less than 150/90 BP Controlled : yes; per the JNC8 guidelines in the absence of renal disease and DM Healthy Weight: 5'3= 107-140 lbs Discussed: Low sodium balanced diet, moderate exercise at least 3-4 times per week for an average of 40 minutes Next Visit: 3month(s) [id number] Waldemar La MD [facility] [address] [place] [address] 04/18/2021 11:33:48 04/19/2021 07:52:01 Uncontrolled type 2 diabetes mellitus 727247954 E11.65 HA1C 6.1random accucheck 183the patient is currently not following with anyone for this problem she had been getting meds during ER visits-she had hospitaliz ation at [place] 01/20/2021 found to be in ARF-starte d on dialysissh e presents today to establish care at this centerthe patient now on dialysis with [facility] in [facility] will be transition ing to self dialysis-s he is interested in renal transplant currently using Lantus 8 units at HSHydralaz ine 100mg bidLisinop ril 20mg dailylabet olol 200mg BID Chronic ki dney disease stage 5 on dialysis 297764819 Z99.2 [place] to [place] [facility] [place] Morbid obesity 523260183 E66.01 40.8 bmiHealthy Weight: 5'3= 107-140 lbs Hypertensive disorder 38 422972 I10 BP Goal: Less than 140/90BP Controlled : yesHealthy Weight: 5'3= 107-140 lbsDiscuss ed: Low sodium balanced diet, moderate exercise at least 3-4 times per week for an average of 40 minutesNex t Visit: 3month(s)Riccardo thornton has refill of her meds from nephrologi [facility] th examination 956923714 Z00.01 Pelvic mass 13801875 R19 .00 L adnexal mass seen on pelvic u/s on 04/18/2021L arge cystic mass of the left adnexal region measuring at least 11.8 cm.This is indetermin ate for malignancy and not well characteri adán sonographeliud walker.Furt her evaluation is recommende d with either CT or MRI with and withoutcon trast.Will send for MRI Anemia in chronic kidney disease 364885790 D63.1 Chronic constipation 236 490361 K59.09 Takes BisacodylT akes stool softener History of optic neuritis 2545353122 2175271 Z86.69 2020seen opth 2020 [id number] Waldemar La MD [facility] [address] [address] 05/10/2021 09:59:12 05/13/2021 07:13:40 Uncontrolled type 2 diabetes mellitus 118730657 E11.65 HA1C 6.1random accucheck 183the patient is currently not following with anyone for this problem she had been getting meds during ER visits-she had hospitaliz ation at [place] 01/20/2021 found to be in ARF-starte d on dialysissh e presents today to establish care at this centerthe [facility] be [facility] to self dialysis-s he is interested in renal transplant currently using Lantus 8 units at [facility]ydral[facility] in[facility] 100mg bidLisinop ril 20mg dailylabet olol 200mg BID Anemia in chronic kidney disease 677047847 D63.1 [id number] Waldemar La MD [facility] [address] 4 07/04/2021 11:05:56 07/05/2021 10:25:01 Allergic rhinitis 02430648 J30.9 otc zyrtec samples Uncontroll ed type 2 diabetes mellitus 472268290 E11.65 Today HA1C 8.1random accucheck 245the patient is currently not following with anyone for this problem she had been getting meds during ER visits-she had hospitaliz ation at [place] 01/20/2021 found to be in ARF-starte d on dialysissh e [facility] [place] has transition ed to self dialysis-s he is interested in renal transplant -has consulted at [facility] using Lantus 8 units at [facility]-BS at home 111-160Hyd ralazine 100mg bidLisinop ril 20mg dailylabet olol 200mg BIDShe will see Dr/nephrol ogist today and may have med adjustment Hypertensive disorder 38 773537 I10 BP Goal: Less than 140/90BP Controlled : noHealthy Weight: 5'3= 107-140 lbsDiscuss ed: Low sodium balanced diet, moderate exercise at least 3-4 times per week for an average of 40 minutesNex t Visit: 3month(s)P hillary has refill of her meds from nephrologi [facility] dney disease stage 5 on dialysis 578110044 Z99.2 continue to [place] [facility] [place] Diabetic p eripheral neuropathy 973767203 E11.40 stable Gastroesop hageal reflux disease 304990283 K21.9 stable for now Morbid obesity 619288501 E66.01 40.8 bmiHealthy Weight: 5'3= 107-140 lbs Depression screening 171 272605 Z13.31 PHQ2-9 mild depression -patients 20 y/o daughter unexpected ly a couple of weeks agoPatient reports having difficulty sleeping Depressive disorder 3548 9007 F32.A 07/04/2021 PHQ2-9 7Agrees to start Rx escitalopr am Chronic constipation 236 416241 K59.09 Takes BisacodylT akes stool softener Bereavement 35054572 Z63 .4 recommend psychother apist-seek appointmen t [id number] Waldemar La MD [facility] [address] [place] [address] 08/15/2021 11:09:34 08/16/2021 15:00:04 Acute sinusitis 87635306 J01.90 Morbid obesity 700158544 E66.01 41.2 bmiHealthy Weight: 5'3= 107-140 lbs Bereavement 94482790 Z63 .4 recommend psychother apist-seek appointmen t Depressive disorder 3544 2387 F32.A 08/15/2021 PHQ2-9 0wishes not to take Rx escitalopr amwill cope on her owndenies suicide ideationre commend seek psychother apy/suppor t group Acute conjunctivitis 537 67548 H10.13 [id number] Waldemar La MD [facility] [address] [place] [address] 11/04/2021 11:15:18 11/05/2021 11:07:40 Uncontrolled type 2 diabetes mellitus 394962049 E11.65 Today HA1C 10.1random accucheck4 12BS 150-260 range just with Lantus 8 units-has not been using Lispro insulin for a whilethe patient is currently not following with anyone for this problem she had been getting meds during ER visits-she had hospitaliz ation at [place] 01/20/2021 found to be in ARF-mally d on dialysissh e presented here [facility] has transition ed to self dialysis-s he is interested in renal transplant -has consulted at [facility] using Lantus 8 units at HS-BS at home 111-160Hyd ralazine 100mg bidLisinop ril 20mg dailylabet olol 300mg BID Allergic rhinitis 010746 04 J30.9 otc zyrtec samples Hypertensive disorder 38 099822 I10 BP Goal: Less than 140/90BP Controlled : noHealthy Weight: 5'3= 107-140 lbsDiscuss ed: Low sodium balanced diet, moderate exercise at least 3-4 times per week for an average of 40 minutesNex t Visit: 3month(s)G ets meds from Nephrologi [facility] dney disease stage 5 on dialysis 962156085 Z99.2 continue to [place] this [place] Diabetic p eripheral neuropathy 164259767 E11.40 stable Gastroesop hageal reflux disease 050199669 K21.9 stable for now Morbid obesity 350366800 E66.01 37.8 bmiHealthy Weight: 5'3= 107-140 lbs Bereavement 44323022 Z63 .4 recommend psychother apist-seek appointmen t Depression screening 171 717153 Z13.31 PHQ2-9 wnl now Chronic constipation 236 818434 K59.09 Takes BisacodylT akes stool softener Cyst of left ovary 74227 43068 1172623 N83.202 Patient has had cyst since 2018Patien t has been referred to HEALTHCARE APPLICATIONS ANALYST for this problem back in 2018 and again in 2021Transp lant team needs a HEALTHCARE APPLICATIONS ANALYST note clearing for kidney transplant Has not seen HEALTHCARE APPLICATIONS ANALYST yet-appoin tment scheduled for later in the month [id number] Alonzo Reynolds MD [facility] [address] [place] [address] 12/27/2021 10:28:17 12/30/2021 12:57:50 Mass of right breast 2148487149 2085309 N63.10 movable soft mass 1.5cm (2) area below R nipple Body mass index 30+ - obesity 222802921 Z68.36 BMI 36.9Ht 5' 3 Healthy weight range 95-130 Depression screening 171 971225 Z13.31 PHQ2-9 wnl Mental hea lth screening 526772682 Z13.39 HAYLEY-7 negative Administra tion of influenza vaccine 42973881 Z23 [id number] Alonzo Reynolds MD [facility] [address] [place] [address] 01/31/2022 11:30:16 02/03/2022 13:44:44 Family history of malignant neoplasm of breast in first degree relative 821555014 Z80.3 Patient's mother had breast cancer at 40 y/oPATIENT WAS REFERRED TO COUNSELING BUT THE PATIENT DID NOT FOLLOW THRU1 PATIENT WANTS TO GO TO GENETIC COUNSELING Mass of right breast 646 4242689 8392934 N63.10 movable soft mass 1.5cm (2) area below R nipple Body mass index 30+ - obesity 428296373 Z68.36 BMI 36.Ht 5' 3 Healthy weight range 95-130 Depression screening 171 041751 Z13.31 PHQ2-9 mild depression Mental hea lth screening 651116130 Z13.39 HAYLEY-7 negative Hypertensive disorder 38 958071 I10 BP Goal: Less than 140/90BP Controlled : noHealthy Weight: 5'3= 107-140 lbsDiscuss ed: Low sodium balanced diet, moderate exercise at least 3-4 times per week for an average of 40 minutesNex t Visit: 3month(s)G ets meds from Ne[facility]i [id number] Waldemar La MD [facility] [address] [place] [address] 03/05/2022 11:39:06 2022 12:49:43 Uncontrolled type 2 diabetes mellitus 067742267 E11.65 Today HA1C 9.6random accucheck 225BS 150-260 range just with Lantus 8 units-has not been using Lispro insulin for a whilethe patient is currently not following with anyone for this problem she had been getting meds during ER visits-she had hospitaliz ation at [place] 01/20/2021 found to be in ARF-mally d on dialysissh e presented here on [facility]/18[facility] Trey in [facility] has transition ed to self dialysis-s he is interested in renal transplant -has consulted at [facility] using Lantus 10 units at -BS at home 69-160Hydr alazine 100mg bidLisinop ril 20mg dailylabet olol 300mg BID Hypertensive disorder 38 868062 I10 BP Goal: Less than 140/90BP Controlled : yesHealthy Weight: 5'3= 107-140 lbsDiscuss ed: Low sodium balanced diet, moderate exercise at least 3-4 times per week for an average of 40 minutesNex t Visit: 3month(s)[facility] Chronic ki dney disease stage 5 on dialysis 170198970 Z99.2 continue to follow [place] with [place]rey [place], [place] Body mass index 30+ - obesity 159108783 Z68.36 BMI 36.Ht 5' 3 Healthy weight range 95-130 Allergic rhinitis 030634 04 J30.9 otc zyrtec Diabetic p eripheral neuropathy 384675562 E11.40 stable Gastroesop hageal reflux disease 123583782 K21.9 stable for now Morbid obesity 697194163 E66.01 36 bmiHealthy Weight: 5'3= 107-140 lbs Cyst of left ovary 81534 49684 8228600 N83.202 Patient has had cyst since 2018Patien t has been referred to HEALTHCARE APPLICATIONS ANALYST for this problem back in 2018 and again in 2021Transp lant team needs a HEALTHCARE APPLICATIONS ANALYST note clearing for kidney transplant Has not seen HEALTHCARE APPLICATIONS ANALYST yet-appoin tment scheduled for later in the month Chronic constipation 236 076380 K59.09 Takes BisacodylT akes stool softener Depression screening 171 111454 Z13.31 PHQ2-9 negative Mental hea [facility] screening 390818537 Z13.39 HAYLEY-7 negative Nasal congestion 9369670 0 R09.81 Acute laryngitis 4595505 J04.0 Exposure to scabies 1626 212626 3558980 Z20.7 Pruritic rash 25877063 L 28.2 [id number] Waldemar La MD [facility] [address] [place] [address] 06/11/2022 14:01:33 06/12/2022 14:47:11 Body mass index 30+ - obesity 729812161 Z68.36 BMI 36.3Ht 5' 3 Healthy weight range 95-130 Obesity 926771420 E66.9 BMI 36.3Ht 5' 3 Healthy weight range 95-130 Follow-up visit 58785748 9 Z09 42 y/o AAF presents for follow up ER visit on 05/03/2022 to [facility] for severe headache. The patient [...] to see neurology. History of cerebrovascular accident 222238285 Z86.73 05/03/[address] showed small region of decreased attenuatio n at left occipital lobe suspicious for relatively recent, potentiall y acute infarct which is new since 01/06/2022 . Hypertensive disorder 38 073478 I10 BP Goal: Less than 140/90BP Controlled : yesHealthy Weight: 5'3= 107-140 lbsDiscuss ed: Low sodium balanced diet, moderate exercise at least 3-4 times per week for an average of 40 minutesNex t Visit: 3month(s)G ets meds from Nephrologi stReports Labetalol stoppedPat ient is taking Lisinopril 20mg dailyPatie nt is taking Hydralazin e 100mg bid Depression screening 171 172985 Z13.31 PHQ2-9 negative Mental hea [facility] screening 198488377 Z13.39 HAYLEY-7 negative [id number] Waldemar La MD [facility] [address] [place] [address] 10/06/2022 14:16:18 10/07/2022 11:43:28 Hypertensive disorder 88335886 I10 BP Goal: Less than 140/90BP Controlled [...] bid Uncontroll ed type 2 diabetes mellitus 604222551 E11.65 Today HA1C 8random accucheck 225BS 150-260 range just with Lantus 8 units-has not been using Lispro insulin for a whilethe patient is currently not following with anyone for this problem she had been getting meds during ER visits-she had hospitaliz ation at [place] 01/20/2021 found to be in ARF-starte d on dialysissh e presented here on 04/18[facility] le has transition ed to self dialysis-s he is interested in renal transplant -has consulted at [facility] and is on waiting listcurren tly using Lantus 10 units at -BS at home 69-160Pati ent will start using Lispro insulin 5 units bid she has not been using secondary to low sugars and afraidPati ent is taking Labetalol 300mg bidHydrala zine 100mg bidLisinop ril 20mg daily Morbid obesity 717559962 E66.01 33.5 BMIHealthy Weight: 5'3= 107-140 lbs Allergic rhinitis 594767 04 J30.9 otc zyrtec Gastroesop hageal reflux disease 579923757 K21.9 stable for now Obesity 062469648 E66.9 BMI 33.5Ht 5' 3 Healthy weight range 95-130 Chronic ki dney disease stage 5 on dialysis 869874827 Z99.2 continue to follow up with [place]rey in [place], [place] Body mass index 30+ - obesity 654416185 Z68.36 BMI 33.5Ht 5' 3 Healthy weight range 95-130 Diabetic p eripheral neuropathy 339931374 E11.40 stable Cyst of left ovary 96522 86682 2765590 N83.202 Patient has had cyst since 2018Patien t has been referred to HEALTHCARE APPLICATIONS ANALYST for this problem back in 2018 and again in 2021Transp lant team needs a HEALTHCARE APPLICATIONS ANALYST note clearing for kidney transplant Has not seen HEALTHCARE APPLICATIONS ANALYST yet-appoin tment scheduled for later Chronic constipation 236 433357 K59.09 Takes BisacodylT akes stool softener Nasal congestion 9319117 0 R09.81 Depression screening 171 457321 Z13.31 PHQ2-9 negative Mental hea lth screening 339048230 Z13.39 HAYLEY-7 negative Requires c ourse of hepatitis B vaccination 081633442 Z28.39 [id number] Alonzo Reynolds MD [facility] [address], [place] [address] 02/03/2023 11:22:33 02/04/2023 11:52:11 Body mass index 30+ - obesity 256331788 Z68.36 BMI 32.1Ht 5' 3 Healthy weight range 95-130 Depression screening 171 746065 Z13.31 PHQ2-9 wnl Mental hea lth screening 179043826 Z13.39 HAYLEY-7 negative Screening for malignant neoplasm of breast 794853930 Z12.31 patients' mother had breast cancer at 40 y/o Administra tion of influenza vaccine 18806686 Z23 [id number] Waldemar La MD [facility] [address] [place] [address] 2023 11:02:07 03/13/2023 15:33:54 Uncontrolled type 2 diabetes mellitus 915208478 E11.65 Today HA1C 6.4random accucheck 178BS 150-260 range just with Lantus 8 units-has not been using Lispro insulin for a whilethe patient is currently not following with anyone for this problem she had been getting meds during ER visits-she had hospitaliz ation at [place] 01/20/2021 found to be in ARF-barbarae d on dialysissh e presented here on 04/18[facility] arias has transition ed to self dialysis-s he is interested in renal transplant -has consulted at [facility] and is on waiting listcurren tly using Lantus 10 units at -BS at home 69-160Pati ent stopped using Lispro insulin 5 units bid she has not been using secondary to low sugars and afraidPati ent is taking Labetalol 300mg bidHydrala zine 100mg bid Hypertensive disorder 38 575153 I10 BP Goal: Less than 140/90BP Controlled : yesHealthy Weight: 5'3= 107-140 lbsDiscuss ed: Low sodium balanced diet, moderate exercise at least 3-4 times per week for an average of 40 minutesNex t Visit: 3month(s)G ets meds from Nephrologi st Patient is taking Hydralazin e 100mg bidPatient is taking Labetalol 300mg bid Vitamin D deficiency 347 89321 E55.9 Allergic rhinitis 703187 04 J30.9 otc zyrtec Morbid obesity 639261187 E66.01 BMI 32.6Health y Weight: 5'3= 107-140 lbs Gastroesop hageal reflux disease 596636708 K21.9 stable for now Obesity 757705229 E66.9 BMI 32.6Ht 5' 3 Healthy weight range 95-130 Chronic ki dney disease stage 5 on dialysis 558031248 Z99.2 continue to [place] Body mass index 30+ - obesity 530391817 Z68.36 BMI 32.6Ht 5' 3 Healthy weight range 95-130 Diabetic p eripheral neuropathy 867379741 E11.40 stable Chronic constipation 236 185336 K59.09 Takes BisacodylT akes stool softener Nasal congestion 3229398 0 R09.81 Requires c ourse of hepatitis B vaccination 882664066 Z28.39 Depression screening 171 928020 Z13.31 PHQ2-9 negative Mental hea lt screening 030207501 Z13.39 HAYLEY-7 negative Administra tion of pneumococcal vaccine 50302593 Z23 Has DM2, CKD, Vaginitis 39978810 N76.0 c/o vaginal itching [id number] BRITTNY GRAVES MD [facility] [address] [place] [address] 09/08/2023 19:36:30 09/09/2023 08:36:21 Obesity 388851268 E66.8 Renewal of prescription 220769558 Z76.0 Diabetic p eripheral neuropathy 278183537 E11.40 Altered appetite 8473328 04 R63.8 Health Concerns Section Related Observation LastModified by Organization Detai ls LastModified Time None Recorded Concern Status LastModified by Organization Details LastModified Time None Recorded Advance Directives Directive N: Payers Insurance Date Sequence Insurance Name Policy Number Policy Zuleta Covered Member ID Zuleta Member ID Guarantor Name 07/09/2018 [facility] (MEDICAID HMO) [id number] Bakari Smart [id number] Bakari Smart 03/21/2021 SLIDING FEE SCHEDULE - DISCOUNT Bakari Smart 04/30/2021 1 *SELF PAY* Juan Smart 04/30/2021 2 [facility] (MEDICAID HMO) [id number] Bakari Smart [id number] Bakari Smart 11/07/2024 2 [place] WHEN MEDICARE OR MEDICARE REPLACEMENT PRIMARY) Bakari Smart [id number] Bakari Smart 09/08/2023 [place] [facility] Bakari Smart [id number] Bakari Smart 11/07/2024 1 [place] Bakari Smart [id number] Bakari Smart 05/10/2021 1 [employer] [facility] [place] [facility] ON OR AFTER 01/24/2020 (MEDICAID REPLACEMENT - HMO) Bakari Smart [id number] Bakari Smart 10/29/2017 2 [facility] PRIOR TO 08/23/2020 (MEDICAID REPLACEMENT - HMO) Bakari Smart [id number] Bakari Smart 04/30/2021 1 [place] [facility] Heathermanuel Smart [id number] Bakari Smart Notes Date Note Type Note Provider Name and Address Organization Details Recorded Time 3 text/html ROS as noted in the HPI 42 y/o AAF presents for follow up ER visit on 05/03/2022 to [facility] for severe headache. The patient [...] has not started on Atorvastatin 80mg yet. Jessie Dickson, 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- Attn: Accounting,[address] [facility], [place], [address], [facility] 06/11/2022 15:17:36 3 text/html Diabetes F/UReported by [...] [facility] for follow up care at this centerShe continues to take:Hydralazine 100mg bidLisinopril 20mg dailylabetolol 300mg BIDFollows with DR Beth Barrett Supervisor Hanging And Trimming she is now doing dialysis 3 times [...] she doesnt eat on a regular basis. Jessie Dickson [facility] Attn: Accounting,[address] [facility], [place], [address], [facility] 10/07/2022 10:01:14 3 text/html ROS as noted in the HPI 42y/o AAF presents for CBE and mammogram order. She has no complaints. She continues to get dyalisis. She wants to get influenza vaccine. She has no contraindications. [facility] Attn: Accounting,[address] [facility], [place], [address], [facility] 02/03/2023 12:30:19 4 text/html Diabetes F/UReported by [...] bidlabetolol 300mg BIDFollows with DR Beth Barrett Supervisor Hanging And Trimming she is now doing dialysis 3 times [...] no contraindications. JOHN Topete Attn: Accounting,[address] [facility], [place], [address], [facility] 04/02/2023 17:51:42 4 text/html ROS as noted [...] cannot do RICCI SargentC Attn: Accounting,[address] [facility], [place], [address], [facility] 09/08/2023 20:26:04 OBGyn Episode Ob Episode Information Episode Created Date Number of Fetuses Patient Bloodtype Patient rh Status Prepregnancy Weight lbs Domestic Partner Domestic Partner Phone Father Name Pediatric Hospitalist Status 07/10/19 19 1 CLOSED Fetus Data First Name Last Name Admitted to NICU Weight (g) Sex Living Outcome Pediatric Complications Fetus ID Race Codes Race Delivery Type F [id number] Camilo Calculation Initial Camilo Date Initial Exam [...] Domestic Partner Domestic Partner Phone Father Name Pediatric Hospitalist Status 07/10/19 19 1 CLOSED Fetus Data First Name Last Name Admitted to NICU Weight (g) Sex Living Outcome Pediatric Complications Fetus ID Race Codes Race Delivery Type M [id number] Camilo Calculation Initial Camilo Date Initial Exam Date Initial Exam Provider Initial Ultrasound Date Last Menstrual Period Date Ultra Sound Weeks Gestation 0 Eighteen To Twenty Week Camilo Update Ultra Sound Date Fundal Height At Umbil Quickening Date Ultra Sound Latest Weeks Gestation Final Caimlo Confirmed By Final Camilo Confirmed Date Final [...] Domestic Partner Domestic Partner Phone Father Name Pediatric Hospitalist Status 07/10/19 19 1 CLOSED Fetus Data First Name Last Name Admitted to NICU Weight (g) Sex Living Outcome Pediatric Complications Fetus ID Race Codes Race Delivery Type F [id number] Camilo Calculation Initial Camilo Date Initial Exam [...]
--- OUTSIDE RECORDS SUMMARY | 2025-01-28 07:16 | XMS_ITS | Encounter Summary ---
Author Organization [facility] Health Address [address] [facility] [address] Care Team Providers Care Legger Press Operator Name Role Phone Jessie Dickson WIRE STRIPPER-LABVIEW PROGRAMMER Primary Care Pro vider Encounter Details Date Type Department Care Team (Late st Contact Info) Description 05/25/2018 Ophth Exam [facility] [place] [address] Regina Fritz MD [address] [place] [address] Social History Tobacco Use Types Packs/Day Years Used Date Smoking Tobacco: Never Smokeless Tobacco: Never Alcohol Use Standard Drinks/Week Comments No 0 (1 standard drink = 0.6 oz pur e alcohol) socially. 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
--- OUTSIDE RECORDS SUMMARY | 2025-01-28 07:17 | XMS_ITS | Encounter Summary ---
Author Organization [facility] Address [address] [place] [address] Care Team Providers Care Pole Framer Machine Name Role Phone Sulema Lennon CONSTRUCTION AREA MANAGER Primary Care Provider [phone] Reason for Visit * Reason Onset Date Comments Advice 10/31/2024 Nurse Triage - A fter Hours ([id number]) Encounter Details Date Type Department Care Team (Late st Contact Info) Description 10/31/2024 Telephone [place] [address] [facility] [address] [place] [phone] Sulema Lennon, CONSTRUCTION AREA MANAGER [address] [place] [address] Advice (Nurse Triage - After Hours ([id number])/) Social History Tobacco Use Types Packs/Day Years [...] materials from doctor or pharmacy Sometimes 10/30/2024 [facility] Utilities Answer Date Recorded In [...] any time in the past 12 m [facility], were you homeless or living in [...] Author Status No 10/11/2024 12:18 AM CDT Addei Drummond RN Active documented in this encounter Progress Notes * Miguel Myrick - 10/31/2024 6:53 AM CDT Nurse Triage - After Hours ([id number]) Comments Critical Lab Result Regarding: Hospice / Location Unknown / Dr. Mccarthy Regarding: Hospice -[facility] Assessment Notes PC from [facility] lab with critical results. Reports creatinine 6.88. PC to OC Cindy Bruce and advised of results. CALL PCP WITHIN 24 HOURS:CARE ADVICE given per PCP Call - No Triage (Adult) guideline. 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
--- OUTSIDE RECORDS SUMMARY | 2025-01-28 07:17 | XMS_ITS | Encounter Summary ---
Author Organization [facility] Healthcare Address [address] [place] [address] Care Team Providers Care Corporate Treasury Analyst Name Role Phone Jessie Dickson NP Primary Care Provider [phone] Almita Rizzo RN Unavailable [phone] Beth Fernandez MD Unavailable [phone] Maday Oviedo MD Unavailable [phone] Tomasz Scott DO Unavailable [phone] Bashir Alston MD Primary Care Provider [phone] No, Physician Primary Care Provider [phone] Meir Nazario MD Unavailable [phone] Kendra Russell RN Unavailable [phone] Unknown, Notinfile Primary Care Provider Unavail able Sulema Lennon NP Primary Care Provider [phone] Reason for Visit * Reason Onset Date Comments READY TO SCHEDULE 04/28/2023 Encounter Details Date Type Department Care Team (Late st Contact Info) Description 04/28/2023 Telephone [facility] Specialty Services [address] [place] [address] Miscellaneous, Not In File READY TO SCHEDULE [...] on file Legal Sex Female 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 Gender Identity Not on file Sexual Orientation [...] documented as of this encounter Care Teams Corporate Treasury Analyst Relationship Specialty Start Date End Date Jessie Dickson NP [address] [place] [address] PCP - General Nurse Practitioner 03/05/21 07/07/23 Bashir Alston MD [address] [place] [address] PCP - General Transplant 07/08/23 07/08/23 No, Physician PCP - General 02/16/24 09/12/24 Unknown, Notinfile PCP - General 09/13/24 09/13/24 Sulema Lennon NP [address] [facility] [address] [place] [address] PCP - General Nurse Practitioner 09/14/24 Almita Rizzo, RN [address] [facility] [address] [place] [address] Lead Burner Supervisor 04/04/21 Beth Fernandez MD [address] [place] [address] Referring Physician Nephrology 04/04/21 Maday Oviedo MD [address] [place] [address] Neurology 09/12/22 Tomasz Scott DO [address] [place] [address] Wreath Inspector Cardiology 09/16/22 Meir Nazario MD [address] [place] [address] Obstetrics and Gynecology 04/11/24 Kendra Russell RN [address] [place] [address] SHOP Outpatient Benefits Director 06/24/24 07/21/24 documented as of this encounter
--- OUTSIDE RECORDS SUMMARY | 2025-01-28 07:17 | XMS_ITS ---
Author Organization [facility] Office Center Address [address] [place] [address] Care Team Providers Care Drug Room Operator Name Role Phone Almita Rizzo RN Unavailable [phone] Beth Fernandez MD Unavailable [phone] Maday Oviedo MD Unavailable [phone] Tomasz Scott DO Unavailable [phone] Meir Nazario MD Unavailable [phone] Sulema Lennon NP Primary Care Provider [phone] Transplant Episode Kidney Candidate [facility] ([place], [place]) [facility] waitlisted on 09/10/2021 Marked as Inactive on 11/16/2024 Reason: 04 - Insurance Issues Kidney CoordinatorAlmita Rizzo RN Fax: N/A Email: N/A Scores Score Value Updated Exceptions/Reas ons CPRA Not available EPTS (Calc) 57 01/28/2025 [place] 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 Mellitus - Type II Care Team Name Role Phone Fax Email Almita Rizzo RN Kidney Coordinator [phone] N/A N/A Beht Fernandez MD Referring Physician [phone] N/A Hien Mireles [facility] Therapist [phone] N/A N/A Events Pre-Transplant Referred: 02/07/2021 Evaluation began: 04/04/2021 Committee: 09/09/2021 UNOS qualified: 01/21/2021 Center waitlisted: 09/10/2021 Dialysis History Dialysis History Start End Type Comments Center 10/20/2024 Hemodialysis T/TH/Sat [facility] 04/23/2021 10/20/[address] Beth prakash [facility] 01/21/2021 04/23/2021 Hemodialysis M/W/F [facility] Dialysis Center Information Center Phone Fax Address [facility] [phone] [place] [address] [facility] [phone] [address]
--- OUTSIDE RECORDS SUMMARY | 2025-01-28 07:17 | XMS_ITS | Clinical Summary ---
Author Organization [facility] Office Center Address [address] [place] [address] Care Team Providers Care Credit Manager Name Role Phone Almita Rizzo RN Unavailable [phone] Beth Fernandez MD Unavailable [phone] Maday Oviedo MD Unavailable [phone] Tomasz Scott DO Unavailable [phone] Meir Nazario MD Unavailable [phone] Sulema Lennon NP Primary Care Provider [phone] Allergies Active Allergy Reactions Criticality Noted Date [...] ADMINISTER WITH A MEAL/FOOD 09/29/19 25 Active cholecalciferol (VITAMIN D-3) 5,000 unit tablet [...] (04/10/2022): Added automatically from request for surgery [id number] Hypertension 2021 ESRD (end stage renal disease) [...] Type Department Care Team Description 01/12/2025 Telephone [facility] Medicine Rheumatology [address] [facility] [address] Advanced Medicine 5th [place] [address] [place] [address] Fannie Fountain, LUZ F/U appt 01/02/2025 Telephone [facility] Transplant Kidney [address] [facility] [address] Mailstop 9029-509 [place] [address] Hien Mireles 12/30/2024 Telephone [facility] Medicine Ophthalmology [address] [place] [address] Shorty Coates, OD New pt scheduled 12/23/2024 10:25 AM CDT Lab [facility] [address] [place] [address] Right hand pain; On hydralazine therapy; History of DVT (deep vein thrombosis) 12/23/2024 9:23 AM CDT - 12/23/2024 11:59 PM CDT Hospital Encounter [facility] [address] [place] [address] Polyarthralgia Discharge Disposition: Discharge to home or self care 12/23/2024 8:00 AM CDT Office Visit [facility] Medicine Rheumatology [address] [facility] [address] Medicine 5th [place] [address] [place] [phone] Fannie Fountain NP History of optic neuritis (Primary Dx); Visual changes; History of DVT (deep vein thrombosis); Right hand pain; Polyarthralgia; On hydralazine therapy 12/19/2024 Telephone [facility] Transplant Kidney [address] [facility] [address] Mailstop [phone] [place] [address] Hien Mireles 12/15/2024 10:00 AM CDT - 12/15/2024 11:59 PM CDT Hospital Encounter [address] [address] Pre-kidney transplant, patient on transplant list; ESRD (end stage renal disease) Discharge Disposition: Discharge to home or self care 11/18/2024 8:00 PM CDT Social Work [facility] [address] [facility] Medicine, 8th Floor, [place] [address] 11/17/2024 Telephone [facility] Transplant Kidney [address] [facility] [address] Mailstop [phone] [place] [address] Hien Mireles 11/16/2024 Documentation [facility] Transplant Kidney [address] [facility] [address] Mailstop [id number] [place] [address] Almita Rizzo RN Waitlist Status Update 11/16/2024 Telephone [facility] Transplant Kidney [address] [facility] [address] Mailstop [phone] [place] [address] Hien Mireles 11/16/2024 Documentation [facility] Transplant Kidney [address] [facility] [address] Mailstop [phone] [place] [address] Almita Rizzo RN Waitlist Maintenance 11/16/2024 Documentation [facility] Transplant Kidney [address] [facility] [address] Mailstop [phone] [place] [address] Almita Rizzo, DELFINO Waitlist Maintenance 11/16/2024 Telephone [facility] Transplant Kidney [address] [facility] [address] Mailstop 07-06-260 [place] [address] Almita Rizzo RN Waitlist Maintenance 11/04/2024 Telephone [facility] Transplant Kidney [address] [facility] [address] Mailstop [phone] [place] [address] Almita Rizzo, DELFINO Waitlist Maintenance from Last 3 Months Immunizations [...] Tobacco: Never Tobacco Cessation:Counseling Given: Not Answered [facility] Utilities Answer Date Recorded In the past 12 months has th e [employer], gas, oil, or water [employer] threatened to shut off services in your [...] week 09/14/2024 How often do you attend [facility] or jewish services? More than 4 times per year 09/14/2024 Do you belong to any clubs o r organizations such as adventism groups, unions, fraternal or athletic groups, or [...] the money to buy more. Never true 07/23/20 25 Within the past 12 months, t [...] any time in the past 12 m [facility], were you homeless or living in [...] on file Legal Sex Female 11:50 PM JAVA ARCHITECT Gender Identity Not on file Sexual [...] this topic Medical Devices Implanted Type Area Physical Security Engineer Device Identifier Shelf Expiration Date Model / Serial / Lot [employer] [id number] [place] 15fr 62cm 2 Cuff Radiopaque Peritoneal Curl Catheter - Sn/A - [id number] Implanted:Qty : 1 on 03/14/2021 by Gildardo Leggett MD at [facility] Catheter N/A: Abdomen [employer] 07/01/2025 [id number] / N/A / [id number] Description:Peritoneal Dialy sis Catheter, Curl Cath, 2 Cuffs Graft Vasc 45cm 4-6mm [place] Acuseal Eptfe 3 Layer Kink Rst - [id number] - [id number] Implanted:Qty : 1 on 05/08/2022 by Uche Katz MD at [facility] Graft Left: Arm [employer]l [employer] [id number] 05/21/2024 [id number] / [id number] / 00 Procedures Procedure Name Priority Date/Time [...] HEPATITIS C ANTIBODY Routine 02/16/2024 11:34 AM JAVA ARCHITECT Pre-kidney transplant, patient on transplant list [...] will be ACL positive and Beta- 2 [id number]. In order to improve specificity, the International Congress on Antiphospholipid Antibodies recommends Beta-2 GP1 antibodies of IgG or IgM isotype (> the 99th percentile), obtained twice, at least 12 weeks apart, to support a diagnosis of antiphospholipid syndrome. The cutoff for this assay was developed from data based on the 99th percentile. These results were obtained with the Lemoptix 2200 System. Beta 2GP1 IgG values obtained [...] factor. These results were obtained with the Lemoptix 2200 System. Beta-2 GP1 IgM values obtained with different manufacturers' assay methods may not be used interchangeably. Current interpretive data was last revised on 2016. Blood 12/23/2024 10:0 5 AM CDT 12/23/2024 10:32 AM CDT [facility] Fountain LAB BLOOD ORDERABLES Final Result Performing Organization Address [facility] de Phone Number [facility] [place] [address] * PR3 - proteinase 3, Ab (12/23/2024 10:05 AM CDT) Proteinase 3 ab <0.2 <=0.9 Ab Index Comment: Interpretive Data Negative: <1 Ab Index Positive: > or = 1 Ab Index Current interpretive data was last revised on 2016. Blood 12/23/2024 10:0 5 AM CDT 12/23/2024 10:32 AM CDT [facility] Suad Fountain LAB BLOOD ORDERABLES Final Result Performing Organization Address [facility] Co de Phone Number [facility] [place] [address] * MPO - myeloperoxidase antibody (12/23/2024 10:05 AM CDT) Myeloperoxidase ab <0.2 <=0.9 Ab Index Comment: Interpretive Data Negative: <1 Ab Index Positive: > or = 1 Ab Index Current interpretive data was last revised on 2016. Blood 12/23/2024 10:0 5 AM CDT 12/23/2024 10:32 AM CDT Fannie Fountain FREIGHT DELIVERY DRIVER LAB BLOOD ORDERABLES Final Result Performing Organization Address City/[facility]/ZIP Co de Phone Number [facility] [place] [address] * (ABNORMAL) Anti-Neutrophilic Cytoplasmic Antibody (ANCA) with Reflex to MPO and PR3 Abs (0:05 AM CDT) ANCA Positive( A) Negative ANCA Titer 1:1280 titer [facility] ANCA Pattern P-ANCA [facility] Comment:IFA Testing is sugge stive of P-ANCA. Results by antigen specific Immunoassay (MPO & PR3) to follow. Blood 12/23/2024 10:0 5 AM CDT 12/23/2024 10:32 AM CDT Fannie Fountain NP LAB BLOOD ORDERABLES Final Result Performing Organization Address [facility] Co de Phone Number [facility] [place] [address] * Antihistone antibodies (12/23/2024 10:05 AM CDT) Antihistone <1.0 U Comment: Value Explanation of Results ------ <1.0 Negative 1.0-1.5 Weak Positive 1.6-2.5 Moderate Positive >2.5 Strong Positive Test Performed at: [facility] [address] [address] IMAN CASTAÑEDA Blood 12/23/2024 10:0 5 AM CDT 12/23/2024 10:32 AM CDT Fannie Fountain FREIGHT DELIVERY DRIVER LAB BLOOD ORDERABLES Final Result Performing Organization Address City/[facility]/ZIP Co de Phone Number DENNIS HOLT [facility] Department [place] [address] * Uric acid (12/23/2024 10:05 AM CDT) Uric acid 4.2 2.5 - 7.0 mg/dL Blood 12/23/2024 10:0 5 AM CDT 12/23/2024 10:32 AM CDT Fannie Fountain FREIGHT DELIVERY DRIVER LAB BLOOD ORDERABLES Final Result Performing Organization Address [facility] de Phone Number DENNIS [facility] Department [place] [address] * XR Knee Bilateral Ap Standing (12/23/2024 [...] signed by: Ric Watts M.D. Fannie Fountain FREIGHT DELIVERY DRIVER IMG XR PROCEDURES Fin al Result * HLA Antibody Screen by PRA or SAB per Schedule (Class I and Class II) (12/15/2024 10:00 AM CDT) Blood 12/15/2024 10:0 0 AM CDT Narrative HISTOTRAC - JAVA ARCHITECT Sample received in lab. Single Antigen [...] method developed and validated by the [facility] HLA laboratory based on an FDA-approved IVD kit (LABScreen Single-Antigen, [employer], [place], [place]). All patient serum samples are pretreated with EDTA before the screen to prevent complement interference. Additional serum treatments, such as adsorption and DTT treatment, may be performed as indicated. Interpretive comments: Low risk: MFI [id number]. Moderate risk: MFI [id number]. Increased risk: MFI >/= 5000. The presence [...] performed at the [facility], [facility], 5th floor, [place], [address]. CLIA # [id number]. Amber Berry, Ph.D., Life Sciences Director, HLA Laboratory Jonathan Brennan M.D., Ph.D., Material Handler Floorperson, HLA Laboratory Rehana Alarcon, Ph.D., CLIA Material Handler Floorperson, [facility] Current methodology and [...] ORDERABLES Final Re sult Performing Organization Address [facility] Co de Phone Number YVONNE[address] [place] [address] * (ABNORMAL) Hemoglobin A1c (09/14/2024 5:21 AM CDT) Hgb A1C 6.2(H) 4.0 - 5.6 % Estimated Average Glucose 131 mg/dL DENNIS Comment: The ADA recommends reporting an estimated Average Glucose (eAG) with all Hemoglobin A1c results using the equation derived from a study of 507 normal and diabetic adults. Minority populations were underrepresented and children were not included. (Diabetes Care 31:6377-8218, 2008). The eAG is not equivalent to a fasting glucose. Blood 09/14/2024 5:21 AM CDT 09/14/2024 5:36 AM CDT Jonnathan Mojica DO LAB BLOOD ORDERABLES Vicki l Result Performing Organization Address [facility] Co de Phone Number [facility] [address] [facility] [place] [address] * Lipid panel (06/21/2024 7:20 PM CDT) [...] on 2017. Triglycerides 112 <=149 mg/dL DENN[facility] Comment: Interpretive Data Ages < or [...] revised on 2017. HDL 56 >=40 mg/dL [facility] Comment: Interpretive Data Ages < [...] on 2017. LDL, calculated 62 <=129 mg/dL [facility] Comment: Interpretive Data Ages < [...] NCEP Expert Panel. Circulation 2004;110:227 3. Shawn Millan al. DENISE Cardiol. 2020 June 23;5(5):540-548. doi: 10.1001/jamacardio.2020.0013 Current Interpretive Data was last revised on 2023. Non-HDL Cholesterol 82 mg/dL [facility] Comment: Interpretive Data [...] last revised on 2017. Chol/HDL ratio 2 [facility] Blood 06/21/2024 7:20 PM CDT 06/21/2024 7:40 PM CDT Narrative [facility] - 06/22/2024 8:42 AM CDT Reflex us Brandan Orr MD LAB BLOOD ORDERABLES Vicki l Result Performing Organization Address City/[facility]/ZIP Co de Phone Number [facility] [place] [address] * Hepatitis C antibody Blood (02/16/2024 11:34 AM JAVA ARCHITECT) Hep C Ab Nonreactive Nonreactive Comment:Antibodies to HCV no t detected. Does NOT exclude the possibility of recent exposure to HCV. Current interpretive data was last revised on 21 Blood 02/16/2024 11:3 4 AM JAVA ARCHITECT 02/16/2024 11:45 AM JAVA ARCHITECT us Tonya Hammonds MD LAB MICROBIOLOGY - GENERAL ORDERABLES Final Result [facility] [place] [address] * Colonoscopy (07/21/2023 10:23 AM CDT) Anatomical Region Laterality Modality Other Narrative Procedure Note Early, Haritha Coronado MD - 07/21/2023 10:23 AM CDT [facility] Patient Name: Bakari Smith Procedure Date: 07/21/2023 10:23 AM Date of : 1980 Admit Type: Outpatient Age: 43 Gender: Female Attending MD: Haritha Stover M.D. Room: [facility] ENDOSCOPY ROOM 02 Note Status: [...] The scope was passed under direct vision.The [id number] Colonoscope was introducedthrough the anus and advanced to the the cecum, identifiedby appendiceal orifice and ileocecal valve. The colonoscopy was performed without difficulty. The patient tolerated the procedure well. The qualityof the bowel preparation was evaluated using the BBPS ([place] Bowel Preparation Scale) with scores of:Right Colon [...] Recently Relevant to Health Maintenance Insurance [employer] [facility] MEDICARE MEDICARE MEDICARE MEDICARE Advance Directives For more information, please contact: [phone] * Full Code (Latest Code Status on File) Date Activated Date Inactivated Comments 09/13/2024 9:22 PM 09/15/2024 6:14 PM * Full Code Date Activated Date Inactivated Comments 06/22/2024 8:11 AM 06/23/2024 7:28 PM * Full Code Date Activated Date Inactivated Comments 07/21/2023 9:59 AM 07/21/2023 3:56 PM Care Teams Credit Manager Relationship Specialty Start Date End Date Sulema Lennon NP [address] [facility] [address] [place] [address] PCP - General Nurse Practitioner 09/14/24 Almita Rizzo, RN [address] [facility] [address] [place] [address] Gear Cutting Machine Set Up Operator 04/04/21 Beth Fernandez MD [address] [facility] [address] [place] [address] Referring Physician Nephrology 04/04/21 Maday Oviedo MD [address] [facility] [address] [place] [address] Neurology 09/12/22 Tomasz Scott DO [address] [facility] [address] [place] [address] Bisque Finisher Cardiology 09/16/22 Meir Nazario MD [address] [place] [address] Obstetrics and Gynecology 04/11/24
--- OUTSIDE RECORDS SUMMARY | 2025-01-28 07:17 | XMS_ITS | Clinical Summary ---
Author Organization [facility] Address [facility] [place] [address] Care Team Providers Care Pottery Decorator Name Role Phone Sulema Lennon NP Primary Care Provider [phone] Allergies Active Allergy Reactions Criticality Noted Date [...] (11/23/2024): Added automatically from request for surgery [id number] Bereavement 07/04/2021 Chronic constipation 04/17/2021 Cyst of [...] Overview (11/23/2024): follows with Ivonne Fernandez at [facility] 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 Hypertension 05/31/2018 Blurring of visual image 05/24/2018 Acute conjunctivitis 04/23/2016 Acute laryngitis 04/23/2016 Otitis media 04/23/2016 Diabetic retinopathy associa graeme with type 2 diabetes mellitus 06/12/2015 Visual disturbance 06/12/2015 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 12/07/2014 Hyperlipidemia 06/29/2014 Vitamin D deficiency 09/17/2012 Encounters Date Type Department Care Team Description 11/23/2024 3:15 PM CDT Office Visit [facility], [address] [place] [address] Raulito Valdez MD Follow Up 11/23/2024 11:00 AM CDT Home Care Visit [facility] Home [place] [address] [place] [address] Urmila Allen RN SN OASIS DISCHARGE/ASSESSMENT 11/23/2024 Home Care Visit [facility] Home Care [address] [place] [phone] Urmila Allen RN [facility] INTERDISCIPLINARY [place] 11/23/2024 Travel 11/16/2024 9:00 AM CDT Home Care Visit [facility] Home [address] [place] [phone] Jessica Bond OT OT DISCIPLINE DISCHARGE 11/16/2024 Scan [employer] [facility] [employer] SRVCS Scanned, [facility] 11/16/2024 Telephone [facility] [address] [phone] Brian Denise MD Appointment Request 11/14/2024 9:36 AM CDT - 11/14/2024 11:59 PM CDT Hospital Encounter [facility] [address] [place] [address] Minh Mccarthy MD Discharge Disposition: Home or Self Care (Routine Discharge) 11/14/2024 Travel 11/11/[address] [phone] Minh Mccarthy MD Clarification (Location for Labs) 11/09/2024 1:20 PM CDT Telemedicine [address] [phone] Minh Mccarthy MD Bacteremia (With peritonitis); Chronic Kidney Disease (ESRD on HD); Abnormal Lab Results (CPK elevation) 11/09/[address] [phone] Minh Mccarthy MD Lab Results 11/09/2024 Travel 11/08/2024 Scan [facility] SRVCS Scanned, [facility] Lab (SCAN) 11/07/2024 Scan [facility] Scanned, [facility] Lab (SCAN) 11/03/2024 2:00 PM CDT Home Care Visit [address] [address] Jessica Bond, OT OT HOME VISIT 11/03/[address] [phone] Minh Mccarthy MD Medication 11/02/2024 Hospital Follow-up Call [facility] [place] [address] Rosibel Alonzo LPN Follow Up Call (PARISA 10/10-10/29/24) 11/01/2024 12:30 PM CDT Home Care Visit [address] [phone] Jessica Bond, SHIRA OT INITIAL EVALUATION 11/01/[address] [phone] Minh Mccarthy MD Appointment Request; Returned Call; Callback 10/31/2024 Telephone [facility] Hospice [place] [address], [facility] [address] [place] [address] Sulema Lennon NP Advice (Nurse Triage - After Hours ([id number])/) 10/30/2024 2:28 PM CDT - 10/30/2024 11:59 PM [place] [address] Minh Mccarthy MD Discharge Disposition: Home or Self Care (Routine Discharge) 10/30/2024 9:00 AM CDT Home Care Visit [facility] [address] [place] [phone] Mariana Glynn, RN SN OASIS START OF CARE 10/30/2024 Home Care Visit [facility] Care [address] [place] [phone] Ivett Willis, RN CASE COMMUNICATION 10/30/2024 Plan of Care Documentation [facility] Care [address] [place] [phone] 10/30/2024 Orders Only [facility] [address] Minh Mccarthy MD 10/10/2024 6:44 PM CDT - 10/29/2024 3:04 PM CDT Hospital Encounter [facility] [place] [address] Wagner Du MD,PHD Ben, MD Sherry Trivedi, MD Son Lance, MD Mathieu Duke, Jose Ji MD Hand [...] materials from doctor or pharmacy Never 11/23/2024 [facility] Utilities Answer Date Recorded In the past 12 months has [employer], gas, oil, or water [employer] threatened to shut off services in your [...] were you homeless or living in a correction (including now)? 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 Office Visit [facility] Medical Group Multispecialty Care - [address] [place] [address] Brian Denise MD [address] [place] [address] Health Maintenance Due Date Last Done Comments [...] 2024 2023, 10/06/2022, 04/18/2021 COVID-19 Vaccine ( - season) 2024 Influenza Adult (#1) 2024 11/27/2023, 02/03/2023, 12/27/2021 Hemoglobin A1C 03/17/2025 09/14/2024, 05/25, 02/16/2024, Additional history exists DTaP, Tdap and Td Vaccines (6 - Td or Tdap) 07/10/2027 07/09/2017, 06/18/1984, 08/30/1980, Additional history exists Pneumococcal Vaccine: Pediatrics (0 to 5 Years) and At-Risk Patients (6 to 49 Years) Completed 2023, 04/18/2021, 03/03/2018, Additional history exists Hepatitis C Completed 10/26/2024, 05/28/2018 PHQ-2 (Physician [place]) Completed 11/09/2024 Hepatitis A Vaccines Aged Out [...] TOTAL Routine 11/14/2024 9:40 AM CDT Peritonitis ([facility] HHS/HCC) OUTSIDE LAB (SCAN ORDER) 11/08/2024 OUTSIDE LAB (SCAN ORDER) 11/08/2024 OUTSIDE LAB (SCAN ORDER) 11/07/2024 HC COMPREHENSIVE METABOLIC PANEL Routine 10/30/2024 1:00 PM CDT Pericolitis ([facility] HHS/[facility]) Bacteremia Staphylococcus aureus infection, multiple-resistant (MRSA) Unresolved pneumonia HC CBC AUTO W/AUTO DIFF Routine 10/30/2024 1:00 PM CDT Pericolitis ([facility] HHS/HCC) Bacteremia Staphylococcus aureus infection, multiple-resistant (MRSA) Unresolved pneumonia HC CREATINE KINASE (CPK) TOTAL Routine 10/30/2024 1:00 PM CDT Pericolitis ([facility] HHS/[facility]) Bacteremia Staphylococcus aureus infection, multiple-resistant (MRSA) Unresolved pneumonia HC BASIC METABOLIC PANEL Routine 10/29/2024 6:41 AM CDT HC CBC AUTO W/AUTO DIFF Routine 10/29/2024 6:41 AM CDT POCT GLUCOSE - DOCKED DEVICE Routine 10/29/2024 5:56 AM CDT HC HEPATITIS PANEL ACUTE Routine 10/26/2024 7:06 PM CDT from Last 3 Months or Most Recently Relevant to Health Maintenance Results * (ABNORMAL) CK (CPK) (11/14/2024 9:40 AM CDT) Only the most recent of2 resultswithin the time period is included. CPK 293(H) 21 - 215 U/L 11/14/2024 10:51 AM CDT [facility] 11/14/2024 9:40 AM CDT Minh Mccarthy MD LABORATORY Final Result [facility] [address] [place] [address], * OUTSIDE LAB (SCAN ORDER) (11/08/2024) Only the most recent of3 resultswithin the time period is included. 11/08/2024 us [facility] Scanned SCANNING Final Resu lt * (ABNORMAL) COMPREHENSIVE METABOLIC PANEL (10/30/2024 1:00 PM CDT) GLUCOSE 116(H) 70 - 99 MG/DL 10/30/2024 3:35 PM CDT [facility] BUN 17 7 - 18 MG/DL 10/30/2024 3:35 PM CDT [facility] CREATININE S/P/B 6.88(HH) 0.55 - 1.02 MG/DL 10/30/2024 3:35 PM CDT [facility] Comment: Critical Result(s) Called at: 15:34:22 on 10/30/2024 by: KAIN QUINN to and read back by:NADER JOHNSON SODIUM S/P/B 138 136 - 145 MMOL/L 10/30/2024 3:35 PM CDT [facility] POTASSIUM S/P/B 3.9 3.5 - 5.1 MMOL/L 10/30/2024 3:35 PM CDT [facility] CHLORIDE S/P/B 100 97 - 115 MMOL/L 10/30/2024 3:35 PM CDT [facility] CO2 33.3(H) 21 - 32 MMOL/L 10/30/2024 3:35 PM CDT [facility] CALCIUM S/P/B 8.9 8.5 - 10.1 MG/DL 10/30/2024 3:35 PM [facility] BILIRUBIN TOTAL S/P/B 0.5 0.2 - 1.2 MG/DL 10/30/2024 3:35 PM [facility] Comment: THIS ASSAY IS NOT RECOMMENDED FOR PATIENTS UNDERGOING TREATMENT WITH ELTROMBOPAG DUE TO THE POTENTIAL FOR FALSELY ELEVATED RESULTS. TOTAL PROTEIN S/P/B 8.0 6.4 - 8.2 G/DL 10/30/2024 3:35 PM [facility] ALBUMIN S/P/B 1.9(L) 3.4 - 5.0 G/DL 10/30/2024 3:35 PM [facility] AST 29 15 - 37 U/L 10/30/2024 3:35 PM [facility] ALT 18 14 - 55 U/L 10/30/2024 3:35 PM [facility] ALKALINE PHOSPHATASE S/P/B 311(H) 50 - 136 U/L 10/30/2024 3:35 PM [facility] ANION GAP 4.7 2 - 10 MMOL/L 10/30/2024 3:35 PM [facility] BUN CREATININE RATIO 2.5(L) 6 - 26 10/30/2024 3:35 PM [facility] A/G RATIO 0.3(L) 1.0 - 2.0 RATIO 10/30/2024 3:35 PM [facility] GFR ESTIMATE 7(L) >90 ML/MIN/1.7 3 M2 10/30/2024 3:35 PM [facility] Comment: NOTE: eGFR is not [...] us Minh Mccarthy MD LABORATORY Final Result [facility] [address] [place] [address], [place] [phone] * (ABNORMAL) CBC W/DIFF AUTOMATED (10/30/2024 1:00 PM CDT) Only the most recent of2 resultswithin the time period is included. Pathologist [facility] WBC 13.14(H) 4.5 - 11.0 x10'3/uL 10/30/2024 2:40 PM CDT [facility] RBC 3.53(L) 4.20 - 5.40 x10'6/uL 10/30/2024 2:40 PM CDT [facility] HGB 8.9(L) 12.0 - 16.0 G/DL 10/30/2024 2:40 PM CDT [facility] HCT 29.8(L) 38.0 - 48.0 % 10/30/2024 2:40 PM CDT [facility] MCV 84.4 81.0 - 99.0 FL 10/30/2024 2:40 PM CDT [facility] MCH 25.2(L) 27.0 - 31.0 PG 10/30/2024 2:40 PM CDT [facility] MCHC 29.9(L) 32.0 - 36.0 G/DL 10/30/2024 2:40 PM CDT [facility] RDW 15.7(H) 11.5 - 14.5 % 10/30/2024 2:40 PM CDT [facility] PLT 464(H) 130 - 400 x10'3/uL 10/30/2024 2:40 PM CDT [facility] MPV 9.7 9.3 - 12.2 FL 10/30/2024 2:40 PM CDT [facility] DIFFERENTIAL TYPE AUTOMATED DIFFERENTIAL 10/30/2024 2:40 PM CDT [facility] NEUTROPHILS % 66.7 % 10/30/2024 2:40 PM CDT [facility] LYMPHOCYTES % 20.5 % 10/30/2024 2:40 PM CDT [facility] MONOCYTES % 7.3 % 10/30/2024 2:40 PM CDT [facility] EOSINOPHILS 3.5 % 10/30/2024 2:40 PM CDT [facility] BASOPHILS 1.2 % 10/30/2024 2:40 PM CDT [facility] IMMATURE GRANS % 0.8 % 10/31/19 2:40 PM CDT [facility] ABS. NEUTROPHILS 8.75(H) 1.80 - 7.70 x10'3/uL 10/30/2024 2:40 PM CDT [facility] ABS. LYMPHOCYTES 2.70 1.00 - 4.80 x10'3/uL 10/30/2024 2:40 PM CDT [facility] ABS. MONOCYTES 0.96(H) 0.24 - 0.86 x10'3/uL 10/30/2024 2:40 PM CDT [facility] ABS. EOSINOPHILS 0.46(H) 0.04 - 0.36 x10'3/uL 10/30/2024 2:40 PM CDT [facility] ABS. BASOPHILS 0.16(H) 0.01 - 0.08 x10'3/uL 10/30/2024 2:40 PM CDT [facility] ABS. IMMATURE GRANULOCYTES 0.11 0.00 - 0.49 x10'3/uL 10/30/2024 2:40 PM CDT [facility] 10/30/2024 1:00 PM CDT Minh Mccarthy MD LABORATORY Final Result [facility] [address] [place] [address], * (ABNORMAL) BASIC METABOLIC PANEL (10/29/2024 6:41 AM CDT) GLUCOSE 101(H) 70 - 99 MG/DL 10/29/2024 7:36 AM CDT [facility] BUN 25(H) 7 - 18 MG/DL 10/29/2024 7:36 AM CDT [facility] CREATININE S/P/B 8.79(HH) 0.55 - 1.02 MG/DL 10/29/2024 7:36 AM CDT [facility] Comment:NOT CALLED PER [employer]ICY SODIUM S/P/B 137 136 - 145 MMOL/L 10/29/2024 7:36 AM CDT [facility] POTASSIUM S/P/B 3.8 3.5 - 5.1 MMOL/L 10/29/2024 7:36 AM CDT [facility] CHLORIDE S/P/B 101 97 - 115 MMOL/L 10/29/2024 7:36 AM CDT [facility] CO2 31.6 21 - 32 MMOL/L 10/29/2024 7:36 AM CDT [facility] CALCIUM S/P/B 8.4(L) 8.5 - 10.1 MG/DL 10/29/2024 7:36 AM CDT [facility] ANION GAP 4.4 2 - 10 MMOL/L 10/29/2024 7:36 AM CDT [facility] BUN CREATININE RATIO 2.8(L) 6 - 26 10/29/2024 7:36 AM CDT [facility] GFR ESTIMATE 5(L) >90 ML/MIN/1.7 3 M2 10/29/2024 7:36 AM CDT [facility] Comment: NOTE: eGFR is not calculated [...] DO LABORATORY Final Result Performing Organization Address [facility] Co de Phone Number [facility] [address] [place] [address], [place] [phone] * (ABNORMAL) POCT glucose (10/29/2024 5:56 AM CDT) GLUCOSE POC 101(H) 70 - 99 mg/dL 10/29/2024 6:02 AM CDT [facility] 10/29/2024 5:56 AM CDT Jose Murdock MD POCT ORDERABLES - DEVICE Vicki l Result Performing Organization Address City/[facility]/ZIP Co de Phone Number [facility] [address] [place] [address], [place] [phone] * HEPATITIS PANEL,ACUTE (10/26/2024 7:06 PM CDT) HEPATITIS B SURFACE AG NON-REACTI VE NON-REACTI VE 10/26/2024 10:08 PM CDT [facility] HEP B CORE IGM NON-REACTI VE NON-REACTI VE 10/26/2024 10:08 PM CDT [facility] HAV IGM NON-REACTI VE NON-REACTI VE 10/26/2024 10:08 PM CDT [facility] HEPATITIS C AB NON-REACTI VE NON-REACTI VE 10/26/2024 10:08 PM CDT [facility] 10/26/2024 7:06 PM CDT us Homero Del Angel MD LABORATORY Final Result [facility] [address] [place] [address], [place] [phone] from Last 3 Months or Most Recently Relevant to Health Maintenance Additional Health Concerns Infection Onset Date Last Indicated 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
--- OUTSIDE RECORDS SUMMARY | 2025-01-28 07:17 | XMS_ITS | Encounter Summary ---
Author Organization [facility] Address [facility] [place] [address] Care Team Providers Care Splitter Head Name Role Phone Sulema Lennon NP Primary Care Provider [phone] Encounter Details Date Type Department Care Team (Late st Contact Info) Description 10/21/2024 Prep for Procedure [facility], [facility] [address] [id number] Raulito Valdez MD [facility]. 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 Office Visit [facility] Medical Group Multispecialty Care - [address] [place] [address] Brian Denise MD [address] [place], [place] [address] [place] [address] documented as of this encounter Visit Diagnoses Diagnosis ESRD on hemodialysis ([facility])- Primary End stage renal disease documented in this encounter Additional Health Concerns Infection Onset Date Last Indicated Resolved Time 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
--- OUTSIDE RECORDS SUMMARY | 2025-01-28 07:17 | XMS_ITS | Clinical Summary ---
Author Organization [facility] Address [address] [facility] [address] Care Team Providers Care Supervisor Wood Room Name Role Phone Unavailable Primary Care Provider Unavailabl e Social History Tobacco Use Types Packs/Day Years Used Date Smoking Tobacco: Never Assessed Comments Unknown Sex and Gender Information Value Date Recorded Sex Assigned at Not on file Legal Sex Female 10:02 PM EDT Gender Identity Not on file Sexual Orientation Not on file Plan of Treatment Not on file Medical Devices Not on file Insurance [facility]
--- NOTE | 2025-01-28 07:21 | ECG_ITS ---
Test Date: 2025-01-28 07:46:03 Measurements Intervals Elizabeth Rate: 71 P: 52 HI: 159 QRS: 2 QRSD: 80 T: 89 QT: 421 QTc: 459 Interpretive Statements SINUS RHYTHM CANNOT R/O SEPTAL INFARCT, AGE INDETERMINATE BORDERLINE ST-T WAVE ABNORMALITY- INF/HIGH LAT LEADS BASELINE ARTIFACT- I, III, AVR, AVL, AVF, V2, V6 ABNORMAL ECG Compared to ECG 01/15/2025 06:39:03 No significant changes Electronically Signed On 01-28-2025 09:25:05 HOSTESS PARTY SALES REPRESENTATIVE by Tomasz Scott D.O.
[2025-01-28 07:22] VITALS: BP 110/68; PULSE 69; RESP 18; TEMP 36.4; O2SAT 100
--- NOTE | 2025-01-28 07:42 | ED.GENADULT ---
HPI - General Adult General Chief complaint: Extremity Problem,Nontraumatic Stated complaint: R hand hurts Time Seen by Provider: 01/28/25 07:21 History of Present Illness HPI narrative: 44-year-old female presented to the emergency department for evaluation for persistent right hand pain. Patient reports she was recently diagnosed with carpal tunnel syndrome. Patient reports the hand pain was worsened this morning when she woke up. Patient states she did not take anything for pain control. Patient states that Tylenol does not help. Patient is supposed to have dialysis today but missed it due to the persistent hand pain. Patient reports yesterday she did have a fall. Patient denies striking head denies loss consciousness. Related Data Home Medications ?Medication ?Instructions ?Recorded ?Confirmed ?Last Taken ?Type lactulose 10 gram/15 mL oral 15 ml PO QHS PRN constipation 11/02/24 01/15/25 11/29/24 History solution sevelamer HCl 800 mg tablet 1,600 mg PO TID 11/02/24 01/15/25 11/29/24 History Allergies Allergy/AdvReac Type Severity Reaction Status Date / Time metronidazole Allergy Intermediate Rash Verified 01/28/25 07:14 omeprazole Allergy Intermediate Rash Verified 01/28/25 07:14 adhesive tape Allergy Mild Itching Verified 01/28/25 07:14 ibuprofen Allergy Unknown Verified 01/28/25 07:14 Review of Systems Review of Systems: All systems reviewed & are unremarkable except as noted in HPI and below PMFSH Past Medical History Medical History (Updated 01/28/25 @ 09:55 by Fadi Lofton MD) Diabetic polyneuropathy Right carpal tunnel syndrome Insulin dependent type 2 diabetes mellitus End-stage renal disease on peritoneal dialysis Obesity (BMI 30-39.9) Erythropoietin deficiency anemia Gastroesophageal reflux Arthritis Right wrist left knee Irritable bowel syndrome Diverticulitis Pneumonia Peripheral neuropathy Hypertension Surgical History Surgical History History of section x3 History of dilation and curettage History of appendectomy History of cholecystectomy History of salpingo-oophorectomy History of tubal ligation Family History Family History Mother Diabetes mellitus Breast cancer Sibling History of blood clots due to blood clot Heart disease Sister has something wrong with her heart Father Prostate carcinoma Hypertension Daughter , 06/08/2021, 19yo Pulmonary embolism due to PE Social History Social History (Updated 01/15/25 @ 12:32 by Javy Mead MD) Social History: Life ling nonsmoker. Denies alcohol or drug use. Lives with her son. Surrogate medical decision maker: Robert Smith, daughter. Code status: Full code. Smoking status: Never smoker Second hand tobacco smoke exposure: Yes Alcohol intake: never Substance use: never Substance use type: does not use Lack of Transportation: No Lack of Food: Never True Current Housing: I Have Housing Concerned About Future Housing: No Difficulty Paying Gas/Electric Bills: No Difficulty Paying for Meds: No Currently Unemployed: No Education: Decline to Answer Difficulty w/ Childcare or Family Care: No Living arrangements: with family Additional living arrangements comments: Lives with family in [place]. 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 Spiritual care concerns: No Agree to blood products: Yes Exam Narrative: APPEARANCE: Uncomfortable appearing HEAD: normocephalic, atraumatic. EYES: PERRLA/EOMI, conjunctivae clear. NOSE: Normal no drainage EARS:TMS clear with good light reflex. THROAT: Pharynx clear, no exudate. NECK: Supple. No adenopathy, no masses. RESPIRATORY: Airway patent, respirations nonlabored. Clear to auscultation bilaterally, no rales, rhonchi, wheezing. CARDIOVASCULAR: Regular rate and rhythm without murmurs rubs or gallops. ABDOMINAL: Soft, nontender, nondistended, normal bowel sounds MUSCULOSKELETAL: tenderness to right wrist. Neurovascular intact NEURO: Alert. Cranial nerves II through XII intact. Good gait. Good coordination SKIN: Warm, dry. Normal Color Course Consultations Nephrology: I have discussed the care of this patient with the following provider: Dr Fernandez Vital Signs Vital signs: Vital Signs Temperature 97.6 F 01/28/25 07:22 Pulse Rate 69 01/28/25 07:22 Respiratory Rate 18 01/28/25 07:22 Blood Pressure 110/68 01/28/25 07:22 Pulse Oximetry 100 01/28/25 07:22 Oxygen Delivery Room Air 01/28/25 07:22 Temperature 97.6 F 01/28/25 07:22 Pulse Rate 70 01/28/25 10:09 Respiratory Rate 18 01/28/25 10:09 Blood Pressure 114/81 01/28/25 10:09 Pulse Oximetry 100 01/28/25 10:09 Oxygen Delivery Room Air 01/28/25 07:22 MDM MDM Narrative Medical decision making narrative: 44-year-old female presents to the emergency department for evaluation for hand pain that is been previously diagnosed as carpal tunnel syndrome. Patient states she only has Tylenol at home for pain control and patient present to the emergency department for further evaluation. Patient was supposed to go to dialysis today but she missed dialysis so she be evaluated for her chronic hand pain. X-ray showed no acute fracture or dislocations. Patient is neurovascularly intact. Patient was provided medication for pain control. Patient does have an elevated potassium of 5.4 and a BUN of 57 and creatinine of 13.71. Patient was scheduled for dialysis today at [facility]. I did call the clinic and they are available to do dialysis today. Patient does confirm that she does have a ride home. Patient was provided [place] for pain control the emergency department. Patient was provided Ayush wrap for comfort. Patient will be encouraged close follow-up with Orthopedics and patient will be provided additional medication for pain control for home. Differential Diagnosis Differential Diagnosis: Carpal tunnel, wrist fracture, hand fracture, hyperkalemia Lab Data 01/28/25 08:54 Labs: Lab Results 01/28/25 Range/Units 08:54 Sodium 138 (137-145) mmol/L Potassium 5.4 H (3.4-5.0) mmol/L Chloride 106 (98-107) mmol/L Carbon Dioxide 19 L (22-30) mmol/L Anion Gap 13 H (4-12) mmol/L BUN 57 H D (7-17) mg/dL Creatinine 13.71 H (0.7-1.0) mg/dL Estim Creat Clear Calc 5 ml/min Estimated GFR 3 L (59 - ) Glucose 109 (65-110) mg/dL Calcium 9.5 (8.4-10.2) mg/dL Discharge Plan Discharge Clinical Impression: Carpal tunnel syndrome of right wrist, Hand pain, right, Hyperkalemia Patient Disposition: Home Condition: Stable Instructions: Antibiotic Form Additional Instructions: You are scheduled for dialysis today. Ayush wrap for comfort. Have close follow-up with Orthopedics. [place] as needed for pain control. If you have worsening symptoms please call or return to the emergency department. Patient Language: Upper Sorbian Prescriptions: New hydrocodone-acetaminophen 5-325 mg tablet 1 tablet PO Q12H PRN (Reason: pain) Qty: 14 0RF No Action lactulose 10 gram/15 mL solution 15 ml PO QHS PRN (Reason: constipation) insulin degludec 100 unit/mL (3 mL) insulin pen 10 unit subcut DAILY Qty: 15 1RF Eliquis 5 mg tablet 5 mg PO BID Qty: 60 5RF sevelamer HCl 800 mg tablet 1,600 mg PO TID Rx Instructions: must administer with a meal/food nifedipine [Procardia XL] 30 mg Tablet Extended Release 24hr 60 mg PO QAM Qty: 30 0RF dextrose [Glutose-15] 40 % Gel 15 g PO PRN PRN (Reason: Hypoglycemia) Qty: 112 0RF labetalol 100 mg Tablet 400 mg PO Q12HR Qty: 240 0RF (DME) pen needle, diabetic [Easy Comfort Pen [place]] 32 gauge x 5/32 needle See Rx Instructions .Route Qty: 50 3RF Rx Instructions: Inject insulin once daily As directed (DME) FreeStyle Alexandro 3 Plus Sensor Device See Rx Instructions .Route Qty: 2 3RF Rx Instructions: Check glucose continuously every 15 days As directed acetaminophen 500 mg tablet 1,000 mg PO TID PRN (Reason: tessie) Qty: 180 1RF pregabalin [Lyrica] 75 mg capsule 75 mg PO DAILY Qty: 90 1RF doxazosin [Cardura] 2 mg tablet 2 mg PO QHS Qty: 90 1RF losartan 100 mg tablet 100 mg PO DAILY Qty: 90 1RF Follow-up/Referrals: Eyad Andrade MD [Physician, Orthopedics] Sulema Lennon APRN [Primary Care Provider, Internal Medicine]
--- OUTSIDE RECORDS SUMMARY | 2025-01-28 07:48 | XMS_ITS | Clinical Summary ---
Author Organization [facility] Address [address] [place] [address] Care Team Providers Care Head Bander And Liner Operator Name Role Phone Jessie Dickson LABORATORY CHEMICAL ASSISTANT-DRAPERY CUTTER Primary Care Pro vider Source Comments [facility],non-owned Affiliates and Associated Physician Practices is amultiple site organization consisting of ambulatory clinics and hospital sitesin [place], [place], [place] and [place]. This disclosure is being madepursuant to the Care Everywhere program and may not contain all information available regarding this patient. Last updated 17.[facility] Allergies Active Allergy Reactions Criticality Noted Date [...] Each 11 06/10/19 19 Active ergocalciferol (DRISDOL) 70986 units capsule Take 1 capsule by mouth [...] 2 tablet 01/22/20 22 Active HYDROcodone-acetami nophen ([place]) 5-325 MG tablet Take 1 (one) tablet [...] on file Legal Sex Female 5:16 PM TELEPHONE INTERVIEWER Gender Identity Not on file Sexual Orientation Not on file Last Filed Vital Signs Vital Sign Reading Time Taken Comments Blood Pressure 145/85 02/05/2022 12:[address] irizarry aware; ok to d/cv Pulse 74 02/05/2022 11:55 AM TELEPHONE INTERVIEWER Temperature 36.8 C (98.2 F) 09/13/2019 8:22 AM CDT Respiratory Rate 12 02/05/2022 11:5 0 AM TELEPHONE INTERVIEWER Oxygen Saturation 100% 02/05/2022 11: 55 AM TELEPHONE INTERVIEWER Inhaled Oxygen Concentration - - Weight 108.9 [...] 11/01/2018 10:11 AM CDT us Tessie Pritchard LABORATORY CHEMICAL ASSISTANT-DRAPERY CUTTER LAB - POINT OF CARE O RDERABLES Final Result * HEPATITIS C AB SCREEN RFLX NAAT QUANT (05/28/2018 12:13 PM CDT) Hepatitis C Antibody Non-react javier Non-reac tive 05/28/2018 1:18 PM CDT [facility] Comment: Hepatitis C Antibody screen [...] MD LAB - CHEMISTRY ORDERABLES Final Result [address] [phone] * HIV-1 HIV-2 ANTIGEN/ANTIBODY (05/24/2018 5:08 PM CDT) HIV Antigen/Antibod y 1 & 2 Non-reacti ve Non-react javier 05/24/2018 5:54 PM CDT [facility] Comment: Neither HIV-1 p24 Antigen nor HIV-1/HIV-2 Antibodies are detected. Blood BLOOD SPECIMEN / Unknown Venipuncture / Unknown 05/24/2018 5:08 PM CDT 05/24/2018 5:16 PM CDT us Namita Raymond MD LAB - HEMATOLOGY ORDERABLES Fi nal Result [facility] [address] [place] [address], [facility] [phone] from Last 3 Months or Most Recently Relevant to Health Maintenance Insurance MEDICARE MEDICAID - [place] MEDICAID SPENDDOWN [place] [address] MEDICAID - OUT OF STATE Advance Directives * Full Code (Latest Code Status on File) Date Activated Date Inactivated Comments 05/25/2018 12:57 AM 05/28/2018 5:22 PM * Full Code Date Activated Date Inactivated Comments 05/24/2018 6:24 PM 05/25/2018 12:57 AM Care Teams Head Bander And Liner Operator Relationship Specialty Start Date End Date Jessie Dickson APRN-JANET [address] [id number] PCP - General 06/30/14
--- OUTSIDE RECORDS SUMMARY | 2025-01-28 07:49 | XMS_ITS | Clinical Summary ---
Author Organization [facility] Address [address] [place] [address] Care Team Providers Care Braided Band Assembler Name Role Phone Almita Rizzo RN Unavailable [phone] Beth Fernandez MD Unavailable [phone] Maday Oviedo MD Unavailable [phone] Tomasz Scott DO Unavailable [phone] Meir Nazario MD Unavailable [phone] Sulema Lennon NP Primary Care Provider [phone] Allergies Active Allergy Reactions Criticality Noted Date [...] (04/10/2022): Added automatically from request for surgery [id number] Hypertension 2021 ESRD (end stage renal disease) [...] Type Department Care Team Description 01/12/2025 Telephone [facility] Medicine Rheumatology [address] [facility] Advanced Medicine 5th [place] [address] [place] [address] Fannie Fountain, LUZ F/U appt 01/02/2025 Telephone [facility] Transplant Kidney [address] [facility] [address] Mailstop 9029-192 [place] [address] Hien Mireles 12/30/2024 Telephone [facility] Medicine Ophthalmology [address] [place] [address] Shorty Coates, OD New pt scheduled 12/23/2024 10:25 AM CDT Lab [facility] [address] [place] [phone] Right hand pain; On hydralazine therapy; History of DVT (deep vein thrombosis) 12/23/2024 9:23 AM CDT - 12/23/2024 11:59 PM CDT Hospital Encounter [facility] [address] [place] [address] Polyarthralgia Discharge Disposition: Discharge to home or self care 12/23/2024 8:00 AM CDT Office Visit [facility] Medicine Rheumatology [address] [facility] Advanced Medicine 5th [place] [address] [place] [id number] Fannie Fountain NP History of optic neuritis (Primary Dx); Visual changes; History of DVT (deep vein thrombosis); Right hand pain; Polyarthralgia; On hydralazine therapy 12/19/2024 Telephone [facility] Transplant Kidney [address] [facility] [address] Mailstop 90-09-729 [place] [address] Hien Mireles 12/15/2024 10:00 AM CDT - 12/15/2024 11:59 PM CDT Hospital Encounter [address] [address] Pre-kidney transplant, patient on transplant list; ESRD (end stage renal disease) Discharge Disposition: Discharge to home or self care 11/18/2024 8:00 PM CDT Social Work [facility] [address] [facility] Medicine, 8th Floor, [place] [address] 11/17/2024 Telephone [facility] Transplant Kidney [address] [facility] [address] Mailstop [phone] [place] [address] Hien Mireles 11/16/2024 Documentation [facility] Trans[facility] Kidney [address] [facility] [address] Mailstop 30-30-106 [place] [address] Almita Rizzo RN Waitlist Status Update 11/16/2024 Telephone [facility] Transplant Kidney [address] [facility] [address] Mailstop [phone] [place] [address] Hien Mireles 11/16/2024 Documentation [facility] Kidney [address] [facility] [address] Mailstop 90-02-620 [place] [address] Almita Rizzo RN Waitlist Maintenance 11/16/2024 Documentation [facility]ney [address] [facility] [address] Mailstop [phone] [place] [address] Almita Rizzo, DELFINO Waitlist Maintenance 11/16/2024 Telephone [facility] Transplant Kidney [address] [facility] [address] Mailstop [phone] [place] [address] Almita Rizzo RN Waitlist Maintenance 11/04/2024 Telephone [facility] Transplant Kidney [address] [facility] [address] Mailstop [phone] [place] [address] Almita Rizzo, DELFINO Waitlist Maintenance from Last [...] Tobacco: Never Tobacco Cessation:Counseling Given: Not Answered [facility] Utilities Answer Date Recorded In the past 12 months has th e [employer], gas, oil, or water [employer] threatened to shut off services in your [...] week 09/14/2024 How often do you attend [facility] or spiritism services? More than 4 times per year 09/14/2024 Do you belong to any clubs o r organizations such as synagogue groups, unions, fraternal or athletic groups, or [...] were you homeless or living in a senior care (including now)? No 09/14/2024 Personal Safety Answer Date Recorded Have you ever been in or are you currently in a harmful physical or emotional relationship or is someone making you feel afraid or unsafe? Denies 10/06/2024 Comments No Sex and Gender Information Value Date Recorded Sex Assigned at Not on file Legal Sex Female 11:50 PM PHYSICAL THERAPIST AIDE Gender Identity Not on file Sexual Orientation [...] this topic Medical Devices Implanted Type Area Cleaner Touch Up Worker Device Identifier Shelf Expiration Date Model / Serial / Lot [employer] [id number] [place] 15fr 62cm 2 Cuff Radiopaque Peritoneal Curl Catheter - Sn/A - [id number] Implanted:Qty : 1 on 03/14/2021 by Gildardo Leggett MD at [facility] Catheter N/A: Abdomen [employer] 07/01/2025 [id number] / N/A / [id number] Description:Peritoneal Dialy sis Catheter, Curl Cath, 2 Cuffs Graft Vasc 45cm 4-6mm [place] Acuseal Eptfe 3 Layer Kink Rst - [id number] - [id number] Implanted:Qty : 1 on 05/08/2022 by Uche Katz MD at [facility] Graft Left: Arm [employer] [id number] 05/21/2024 [id number] / [id number] / 00 Procedures Procedure Name Priority Date/Time [...] HEPATITIS C ANTIBODY Routine 02/16/2024 11:34 AM PHYSICAL THERAPIST AIDE Pre-kidney transplant, patient on transplant list ESRD [...] will be ACL positive and Beta- 2 [id number]. In order to improve specificity, the International Congress on Antiphospholipid Antibodies recommends Beta-2 GP1 antibodies of IgG or IgM isotype (> the 99th percentile), obtained twice, at least 12 weeks apart, to support a diagnosis of antiphospholipid syndrome. The cutoff for this assay was developed from data based on the 99th percentile. These results were obtained with the Butlr 2200 System. Beta 2GP1 IgG values obtained [...] factor. These results were obtained with the Butlr 2200 System. Beta-2 GP1 IgM values obtained with different manufacturers' assay methods may not be used interchangeably. Current interpretive data was last revised on 2016. Blood 12/23/2024 10:0 5 AM CDT 12/23/2024 10:32 AM CDT [facility] LAB BLOOD ORDERABLES Final Result Performing Organization Address [facility] de Phone Number [facility] [place] [address] * PR3 - proteinase 3, Ab (12/23/2024 10:05 AM CDT) Proteinase 3 ab <0.2 <=0.9 Ab Index Comment: Interpretive Data Negative: <1 Ab Index Positive: > or = 1 Ab Index Current interpretive data was last revised on 2016. Blood 12/23/2024 10:0 5 AM CDT 12/23/2024 10:[address] [facility] Suad Fountain LAB BLOOD ORDERABLES Final Result Performing Organization Address [facility] Co de Phone Number [facility] [place] [address] * MPO - myeloperoxidase antibody (12/23/2024 10:05 AM CDT) Myeloperoxidase ab <0.2 <=0.9 Ab Index Comment: Interpretive Data Negative: <1 Ab Index Positive: > or = 1 Ab Index Current interpretive data was last revised on 2016. Blood 12/23/2024 10:0 5 AM CDT 12/23/2024 10:32 AM CDT Fannie Fountain BAIL ATTACHER LAB BLOOD ORDERABLES Final Result Performing Organization Address City/[facility]/ZIP Co de Phone Number [facility] [place] [address] * (ABNORMAL) Anti-Neutrophilic Cytoplasmic Antibody (ANCA) with Reflex to MPO and PR3 Abs (0:05 AM CDT) ANCA Positive( A) Negative ANCA Titer 1:1280 titer [facility] ANCA Pattern P-ANCA [facility] Comment:IFA Testing is sugge stive of P-ANCA. Results by antigen specific Immunoassay (MPO & PR3) to follow. Blood 12/23/2024 10:0 5 AM CDT 12/23/2024 10:32 AM CDT Fannie Fountain NP LAB BLOOD ORDERABLES Final Result Performing Organization Address [facility] Co de Phone Number [facility] [place] [address] * Antihistone antibodies (12/23/2024 10:05 AM CDT) Antihistone <1.0 U Comment: Value Explanation of Results ------ <1.0 Negative 1.0-1.5 Weak Positive 1.6-2.5 Moderate Positive >2.5 Strong Positive Test Performed at: [facility] [employer] [address] [address] IMAN CASTAÑEDA Blood 12/23/2024 10:0 5 AM CDT 12/23/2024 10:32 AM CDT Fannie Fountain BAIL ATTACHER LAB BLOOD ORDERABLES Final Result Performing Organization Address City/[facility]/ZIP Co de Phone Number DENNIS HOLT [facility] Department [place] [address] * Uric acid (12/23/2024 10:05 AM CDT) Uric acid 4.2 2.5 - 7.0 mg/dL Blood 12/23/2024 10:0 5 AM CDT 12/23/2024 10:32 AM CDT Fannie Fountain BAIL ATTACHER LAB BLOOD ORDERABLES Final Result Performing Organization Address [facility] de Phone Number [facility] Department [place] [address] * XR Knee Bilateral Ap Standing (12/23/2024 [...] signed by: Ric Watts M.D. Fannie Fountain BAIL ATTACHER IMG XR PROCEDURES Fin al Result * HLA Antibody Screen by PRA or SAB per Schedule (Class I and Class II) (12/15/2024 10:00 AM CDT) Blood 12/15/2024 10:0 0 AM CDT Narrative HISTOTRAC - PHYSICAL THERAPIST AIDE Sample received in lab. Single Antigen Antibody [...] a method developed and validated by the [facility] HLA laboratory based on an FDA-approved IVD kit (LABScreen Single-Antigen, [employer], [place], [place]). All patient serum samples are pretreated with EDTA before the screen to prevent complement interference. Additional serum treatments, such as adsorption and DTT treatment, may be performed as indicated. Interpretive comments: Low risk: MFI [id number]. Moderate risk: MFI 5502-4485. Increased risk: MFI >/= 5000. The presence [...] antigens to avoid. Testing performed at the [facility], [facility], 5th floor, [place], [address]. CLIA # [id number]. Amber Berry, Ph.D., Media Strategist, HLA Laboratory Jonathan Brennan M.D., Ph.D., Concrete Finisher, HLA Laboratory Rehana Alarcon, Ph.D., CLIA Concrete Finisher, [facility] Current methodology and interpretive [...] sult Performing Organization Address [facility] Co de Phone Number YVONNE[address] [place] [address] * (ABNORMAL) Hemoglobin A1c (09/14/2024 5:21 AM CDT) Hgb A1C 6.2(H) 4.0 - 5.6 % Estimated Average Glucose 131 mg/dL DENNIS Comment: The ADA recommends reporting an estimated Average Glucose (eAG) with all Hemoglobin A1c results using the equation derived from a study of 507 normal and diabetic adults. Minority populations were underrepresented and children were not included. (Diabetes Care 31:5503-0530, 2008). The eAG is not equivalent to a fasting glucose. Blood 09/14/2024 5:21 AM CDT 09/14/2024 5:36 AM CDT Jonnathan Mojica DO LAB BLOOD ORDERABLES Vicki l Result Performing Organization Address [facility] Co de Phone Number [facility] [address] [facility] [place] [address] * Lipid panel (06/21/2024 7:20 PM CDT) [...] on 2017. Triglycerides 112 <=149 mg/dL DEN[facility] Comment: Interpretive Data Ages < [...] revised on 2017. HDL 56 >=40 mg/dL [facility] Comment: Interpretive Data Ages < or [...] on 2017. LDL, calculated 62 <=129 mg/dL [facility] Comment: Interpretive Data Ages < or [...] revised on 2023. Non-HDL Cholesterol 82 mg/dL [facility] Comment: Interpretive Data Ages < or [...] last revised on 2017. Chol/HDL ratio 2 [facility] Blood 06/21/2024 7:20 PM CDT 06/21/2024 7:40 PM CDT Narrative [facility] - 06/22/2024 8:42 AM CDT Reflex us Brandan Orr MD LAB BLOOD ORDERABLES Vicki l Result Performing Organization Address City/[facility]/ZIP Co de Phone Number [facility] Department [place] [address] * Hepatitis C antibody Blood (02/16/2024 11:34 AM PHYSICAL THERAPIST AIDE) Hep C Ab Nonreactive Nonreactive Comment:Antibodies to HCV no t detected. Does NOT exclude the possibility of recent exposure to HCV. Current interpretive data was last revised on 21 Blood 02/16/2024 11:3 4 AM PHYSICAL THERAPIST AIDE 02/16/2024 11:45 AM PHYSICAL THERAPIST AIDE us Tonya Hammonds MD LAB MICROBIOLOGY - GENERAL ORDERABLES Final Result [facility] Department [place] [address] * Colonoscopy (07/21/2023 10:23 AM CDT) Anatomical Region Laterality Modality Other Narrative Procedure Note Early, Haritha Coronado MD - 07/21/2023 10:23 AM CDT [facility] Patient Name: Bakari Smith Procedure Date: 07/21/2023 10:23 AM Date of : 1980 Admit Type: Outpatient Age: 43 Gender: Female Attending MD: Haritha Stover M.D. Room: [facility] ENDOSCOPY ROOM 02 Note Status: [...] The scope was passed under direct vision.The [id number] Colonoscope was introducedthrough the anus and advanced to the the cecum, identifiedby appendiceal orifice and ileocecal valve. The colonoscopy was performed without difficulty. The patient tolerated the procedure well. The qualityof the bowel preparation was evaluated using the BBPS ([place] Bowel Preparation Scale) with scores of:Right Colon [...] On: 07/21/2023 10:23 AM Recognized by the [place] [employer] for promoting quality in endoscopy Haritha Stover MD ENDOSCOPY PROCEDURES Final Res ult * HM MAMMOGRAPHY (06/04/2021) Impressions Rashida Schneider - 06/04/2021 IMPRESSION: 1. Benign mammogram. READ BY: NINO BAJWA MD 06/05/2021 Historical Provider HEALTH MAINTENANCE Final Result from Last 3 Months or Most Recently Relevant to Health Maintenance Insurance [employer] [facility] MEDICARE MEDICARE MEDICARE MEDICARE Advance Directives For more information, please contact: [phone] * Full Code (Latest Code Status on File) Date Activated Date Inactivated Comments 09/13/2024 9:22 PM 09/15/2024 6:14 PM * Full Code Date Activated Date Inactivated Comments 06/22/2024 8:11 AM 06/23/2024 7:28 PM * Full Code Date Activated Date Inactivated Comments 07/21/2023 9:59 AM 07/21/2023 3:56 PM Care Teams Braided Band Assembler Relationship Specialty Start Date End Date Sulema Lennon NP [address] [facility] [address] [place] [address] PCP - General Nurse Practitioner 09/14/24 Almita Rizzo, RN [address] [facility] [address] [place] [address] Employment Coordinator 04/04/21 Beth Fernandez MD [address] [facility] [address] [place] [address] Referring Physician Nephrology 04/04/21 Maday Oviedo MD [address] [facility] [address] [place] [id number] Neurology 09/12/22 Tomasz Scott DO [address] [facility] [address] [place] [address] Certified Nursing Attendant Cardiology 09/16/22 Meir Nazario MD [address] [place] [address] Obstetrics and Gynecology 04/11/24
--- OUTSIDE RECORDS SUMMARY | 2025-01-28 07:49 | XMS_ITS | Encounter Summary ---
Author Organization [facility] Health Address [address] [facility] [place] [address] Care Team Providers Care Solderer Torch Name Role Phone Jessie Dickson HOT DIP PLATING SUPERVISOR-SUPERVISOR FISH HATCHERY Primary Care Pro vider Encounter Details Date Type Department Care Team (Late st Contact Info) Description 05/25/2018 Ophth Exam [facility] [place] [address] Regina Fritz MD [address] [place] [id number] Social History Tobacco Use Types Packs/Day Years Used Date Smoking Tobacco: Never Smokeless Tobacco: Never Alcohol Use Standard Drinks/Week Comments No 0 (1 standard drink = 0.6 oz pur e alcohol) socially. Comments No Sex and Gender Information Value Date Recorded Sex Assigned at Not on file Legal Sex Female 5:16 PM SPECIAL WARFARE BOAT OPERATOR Gender Identity Not on file Sexual [...] on filedocumented in this encounter Care Teams Solderer Torch Relationship Specialty Start Date End Date Jessie Dickson TAMMY-SUPERVISOR FISH HATCHERY [address] [place] [phone] PCP - General 06/30/14 documented as of this encounter
--- OUTSIDE RECORDS SUMMARY | 2025-01-28 07:49 | XMS_ITS ---
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 More than 4 times per year 09/14/2024 Do you belong to any clubs o r organizations such as lutheran groups, unions, fraternal or athletic groups, or [...] any time in the past 12 m [facility], were you homeless or living in a fpc (including now)? No 09/14/2024 Personal Safety Answer Date Recorded Have you ever been in or are you currently in a harmful physical or emotional relationship or is someone making you feel afraid or unsafe? 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 In order to improve specificity, the International Congress on Antiphospholipid Antibodies recommends Beta-2 GP1 antibodies of IgG or IgM isotype (> the 99th percentile), obtained twice, at least 12 weeks apart, to support a diagnosis of antiphospholipid syndrome. The cutoff for this assay was developed from data based on the 99th percentile. These results were obtained with the VT Siliconlex 2200 System. Beta 2GP1 IgG values obtained with different manufacturers' assay methods may not be used interchangeably. Current interpretive data was last revised on 2016. Beta-2 glycoprotein I, IgM 1.9 <=19.9 units/mL [facility] Comment: Interpretive Data Negative: <20 U/mL Positive: [...] factor. These results were obtained with the VT Siliconlex 2200 System. Beta-2 GP1 IgM values obtained with different manufacturers' assay methods may not be used interchangeably. Current interpretive data was last revised on 2016. Blood 12/23/2024 10:0 5 AM CDT 12/23/2024 10:32 AM CDT Fannie Fountain NP LAB BLOOD ORDERABLES Final Result [facility] Department [place] [address] * PR3 - proteinase 3, Ab (12/23/2024 10:05 AM CDT) Proteinase 3 ab <0.2 <=0.9 Ab Index Comment: Interpretive Data Negative: <1 Ab Index Positive: > or = 1 Ab Index Current interpretive data was last revised on 2016. Blood 12/23/2024 10:0 5 AM CDT 12/23/2024 10:32 AM CDT Fannie Fountain NP LAB BLOOD ORDERABLES Final Result Performing Organization Address [facility] Co de Phone Number [facility] [place] [address] * MPO - myeloperoxidase antibody (12/23/2024 10:05 AM CDT) Pathologist [facility] Myeloperoxidase ab <0.2 <=0.9 Ab Index Comment: Interpretive Data Negative: <1 Ab Index Positive: > or = 1 Ab Index Current interpretive data was last revised on 2016. Blood 12/23/2024 10:0 5 AM CDT 12/23/2024 10:32 AM CDT Fannie Fountain NP LAB BLOOD ORDERABLES Final Result Performing Organization Address [facility] de Phone Number [facility] [place] [address] * (ABNORMAL) Anti-Neutrophilic Cytoplasmic Antibody (ANCA) with Reflex to MPO and PR3 Abs (0:05 AM CDT) [facility] ANCA Positive( A) Negative ANCA Titer 1:1280 titer [facility] ANCA Pattern P-ANCA [facility] Comment:IFA Testing is sugge stive of P-ANCA. Results by antigen specific Immunoassay (MPO & PR3) to follow. Blood 12/23/2024 10:0 5 AM CDT 12/23/2024 10:32 AM CDT Fannie Fountain ELECTRICIAN ASSISTANT LAB BLOOD ORDERABLES Final Result Performing Organization Address [facility] Co de Phone Number [facility] [place] [address] * Antihistone antibodies (12/23/2024 10:05 AM CDT) [facility] Antihistone <1.0 U Comment: Value Explanation of Results ------ <1.0 Negative 1.0-1.5 Weak Positive 1.6-2.5 Moderate Positive >2.5 Strong Positive Test Performed at: [employer] [place] [address] [place] [address] IMAN Adenike CASTAÑEDA Blood 12/23/2024 10:0 5 AM CDT 12/23/2024 10:32 AM CDT Fannie Fountain ELECTRICIAN ASSISTANT LAB BLOOD ORDERABLES Final Result Performing Organization Address [facility] Co de Phone Number [facility] Department [place] [address] * Uric acid (12/23/2024 10:05 AM CDT) Pathologist [facility] Uric acid 4.2 2.5 - 7.0 mg/dL Blood 12/23/2024 10:0 5 AM CDT 12/23/2024 10:32 AM CDT Fannie Fountain ELECTRICIAN ASSISTANT LAB BLOOD ORDERABLES Final Result Performing Organization Address [facility] de Phone Number [facility] Department of [employer] [place] [address] * XR Knee Bilateral Ap Standing (12/23/2024 [...] by: Ric Watts M.D. 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 Single Antigen Antibody [...] a method developed and validated by the [facility] HLA laboratory based on an FDA-approved IVD kit (LABScreen Single-Antigen, [employer], [place], [place]). All patient serum samples are pretreated with EDTA before the screen to prevent complement interference. Additional serum treatments, such as adsorption and DTT treatment, may be performed as indicated. Interpretive comments: Low risk: MFI [id number]. Moderate risk: MFI [id number]. Increased risk: MFI >/= 5000. The presence [...] antigens to avoid. Testing performed at the [facility], [address] [place] [address], 5th floor, [place], [address]. CLIA # [id number]. Amber Berry, Ph.D., Green Building Engineer, HLA Laboratory Jonathan Brennan M.D., Ph.D., Program Arranger, HLA Laboratory Rehana Alarcon, Ph.D., CLIA Program Arranger, [facility] Current methodology and interpretive [...] ORDERABLES Final Re sult Performing Organization Address [facility] Co de Phone Number [address] [employer] [place], [place] [id number] * (ABNORMAL) Hemoglobin A1c (09/14/2024 5:21 AM CDT) Hgb A1C 6.2(H) 4.0 - 5.6 % Estimated Average Glucose 131 mg/dL [facility] Comment: The ADA recommends reporting an estimated Average Glucose (eAG) with all Hemoglobin A1c results using the equation derived from a study of 507 normal and diabetic adults. Minority populations were underrepresented and children were not included. (Diabetes Care 31:8970-8091, 2008). The eAG is not equivalent to a fasting glucose. Blood 09/14/2024 5:21 AM CDT 09/14/2024 5:36 AM CDT Jonnathan Mojica DO LAB BLOOD ORDERABLES Vicki l Result Performing Organization Address City/[facility]/ZIP Co de Phone Number [address] [place] [address] * Lipid panel (06/21/2024 7:20 PM CDT) Pathologist [facility] Cholesterol 138 30 - 199 mg/dL Comment: [...] revised on 2017. Triglycerides 112 <=149 mg/dL [facility] Comment: Interpretive Data Ages < or = [...] revised on 2017. HDL 56 >=40 mg/dL [facility] Comment: Interpretive Data Ages < or = [...] on 2017. LDL, calculated 62 <=129 mg/dL [facility] Comment: Interpretive Data Ages < or = [...] revised on 2023. Non-HDL Cholesterol 82 mg/dL [facility] Comment: Interpretive Data Ages < or = [...] last revised on 2017. 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 Does NOT exclude the possibility of recent exposure to HCV. Current interpretive data was last revised on 21 Blood 02/16/2024 11:3 4 AM FIELD CROP II FARMWORKER 02/16/2024 11:45 AM FIELD CROP II FARMWORKER us Tonya Hammonds MD LAB MICROBIOLOGY - GENERAL ORDERABLES Final Result [facility] Department [place] [address] * Colonoscopy (07/21/2023 10:23 AM CDT) Anatomical Region Laterality Modality Other Narrative Procedure Note Haritha Stover MD - 07/21/2023 10:23 AM CDT [facility] Patient Name: Bakari Smith Procedure Date: 07/21/2023 10:23 AM Date of : 1980 Admit Type: Outpatient Age: 43 Gender: Female Attending MD: Haritha Stover M.D. Room: [facility] ENDOSCOPY ROOM 02 Note Status: Finalized [...] The scope was passed under direct vision.The [id number] Colonoscope was introducedthrough the anus and advanced to the the cecum, identifiedby appendiceal orifice and ileocecal valve. The colonoscopy was performed without difficulty. The patient tolerated the procedure well. The qualityof the bowel preparation was evaluated using the BBPS (Greene Bowel Preparation Scale) with scores of:Right Colon [...]
--- OUTSIDE RECORDS SUMMARY | 2025-01-28 07:49 | XMS_ITS | Encounter Summary ---
Author Organization [facility] Address [facility] [place] [address] Care Team Providers Care Dry Wall Installations Mechanic Name Role Phone Sulema Lennon NP Primary Care Provider [phone] Encounter Details Date Type Department Care Team (Late st Contact Info) Description 10/21/2024 Prep for Procedure [facility], [facility] [address] [id number] Raulito Valdez MD [facility]. [facility] [address] [place], [place] [id number] Social History Tobacco Use Types Packs/Day Years Used Date Smoking Tobacco: Never Alcohol Use Standard Drinks/Week Comments Not Currently 0 (1 standard drink = 0.6 oz pur e alcohol) [facility] Utilities Answer Date Recorded In the past 12 months has [facility] Via, gas, oil, or water [employer] threatened to shut off services in your [...] were you homeless or living in a care home (including now)? No 10/11/2024 Comments Unknown [...] Author Status No 10/11/2024 12:18 AM CDT Adide Drummond RN Active * Are you blind [...] st Contact Info) Description 03/22/2025 10:40 AM POWER OPERATOR Office Visit [facility] - [address] [place] [address] Brian Denise MD [address] [place], [place] [address] [place] [address] documented as of this encounter Visit Diagnoses Diagnosis ESRD on hemodialysis ([facility])- Primary End stage renal disease documented in this encounter Additional Health Concerns 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
--- OUTSIDE RECORDS SUMMARY | 2025-01-28 07:49 | XMS_ITS | Encounter Summary ---
Author Organization [facility] Healthcare Address [address] [place] [address] Care Team Providers Care Backend Java Developer Name Role Phone Jessie Dickson NP Primary Care Provider [phone] Almita Rizzo RN Unavailable [phone] Beth Fernandez MD Unavailable [phone] Maday Oviedo MD Unavailable [phone] Tomasz Scott DO Unavailable [phone] Bashir Alston MD Primary Care Provider [phone] No, Physician Primary Care Provider [phone] Meir Nazario MD Unavailable [phone] Kendra Russell RN Unavailable [phone] Unknown, Notinfile Primary Care Provider Unavail able Sulema Lennon NP Primary Care Provider [phone] Reason for Visit * Reason Onset Date Comments READY TO SCHEDULE 04/28/2023 Encounter Details Date Type Department Care Team (Late st Contact Info) Description 04/28/2023 Telephone [facility] Specialty Services [address] [place] [address] Miscellaneous, Not In File READY TO SCHEDULE [...] on file 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 Gender Identity Not on file Sexual Orientation [...] documented as of this encounter Care Teams Backend Java Developer Relationship Specialty Start Date End Date Jessie Dickson NP [address] [place] [address] PCP - General Nurse Practitioner 03/05/21 07/07/23 Bashir Alston MD [address] [place] [address] PCP - General Transplant 07/08/23 07/08/23 No, Physician PCP - General 02/16/24 09/12/24 Unknown, Notinfile PCP - General 09/13/24 09/13/24 Sulema Lennon NP [address] [facility] [address] [place] [address] PCP - General Nurse Practitioner 09/14/24 Almita Rizzo, RN [address] [facility] [address] [place] [address] Assembler Handbags 04/04/21 Beth Fernandez MD [address] [place] [address] Referring Physician Nephrology 04/04/21 Maday Oviedo MD [address] [place] [address] Neurology 09/12/22 Tomasz Scott DO [address] [place] [address] Orthotics Technician Cardiology 09/16/22 Meir Nazario MD [address] [place] [address] Obstetrics and Gynecology 04/11/24 Kendra Russell RN [address] [place] [address] SHOP Outpatient Reprographics Associate 06/24/24 07/21/24 documented as of this encounter
--- OUTSIDE RECORDS SUMMARY | 2025-01-28 07:49 | XMS_ITS ---
Author Organization [facility] Address [address] [place] [address] Care Team Providers Care Tag Meter Operator Name Role Phone Almita Rizzo RN Unavailable [phone] Beth Fernandez MD Unavailable [phone] Maday Oviedo MD Unavailable [phone] Tomasz Scott DO Unavailable [phone] Meir Nazario MD Unavailable [phone] Sulema Lennon NP Primary Care Provider [phone] Transplant Episode Kidney Candidate [facility] ([place], [place]) [facility] waitlisted on 09/10/2021 Marked as Inactive on 11/16/2024 Reason: 04 - Insurance Issues Kidney CoordinatorAlmita Rizzo RN Fax: N/A Email: N/A Scores Score Value Updated Exceptions/Reas ons CPRA Not available EPTS (Calc) 57 01/28/2025 [place] 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 Mellitus - Type II Care Team Name Role Phone Fax Email Almita Rizzo RN Kidney Coordinator [phone] N/A N/A Beth Fernandez MD Referring Physician [phone] N/A Hien Mireles Radiology Technician [phone] N/A N/A Events Pre-Transplant Referred: 02/07/2021 Evaluation began: 04/04/2021 Committee: 09/09/2021 UNOS qualified: 01/21/2021 Center waitlisted: 09/10/2021 Dialysis History Dialysis History Start End Type Comments Center 10/20/2024 Hemodialysis T/TH/Sat [facility] 04/23/2021 10/20/[address] Beth prakash [facility] 01/21/2021 04/23/2021 Hemodialysis M/W/F [facility] Dialysis Center Information Center Phone Fax Address [facility] [phone] [place] [address] [facility] [phone] [address]
--- OUTSIDE RECORDS SUMMARY | 2025-01-28 07:50 | XMS_ITS | Clinical Summary ---
Author Organization [facility] Address [facility] [place] [address] Care Team Providers Care Food Counselor Name Role Phone Sulema Lennon NP Primary Care Provider [phone] Allergies Active Allergy Reactions Criticality Noted Date [...] (11/23/2024): Added automatically from request for surgery [id number] Bereavement 07/04/2021 Chronic constipation 04/17/2021 Cyst of [...] Overview (11/23/2024): follows with Ivonne Fernandez at [facility] 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 Hypertension 05/31/2018 [...] Description 11/23/2024 3:15 PM CDT Office Visit [facility] [place] [facility], [address] [place] [address] Raulito Valdez MD Follow Up 11/23/2024 11:00 AM CDT Home Care Visit [facility] Home Care [place] [address] [place] [address] Urmila Allen RN SN OASIS DISCHARGE/ASSESSMENT 11/23/2024 Home Care Visit [facility] Home Care [address] [place] [phone] Urmila Allen RN [facility] INTERDISCIPLINARY MT 11/23/2024 Travel 11/16/2024 9:00 AM CDT Home Care Visit [facility] Home [address] [place] [address] Jessica Bond OT OT DISCIPLINE DISCHARGE 11/16/2024 Scan [facility] [employer] SRVCS Scanned, [facility] 11/16/2024 Telephone [facility] [address] [phone] Brian Denise MD Appointment Request 11/14/2024 9:36 AM CDT - 11/14/2024 11:59 PM CDT Hospital Encounter [facility] [address] [facility] [address] Minh Mccarthy MD Discharge Disposition: Home or Self Care (Routine Discharge) 11/14/2024 Travel 11/11/[address] [phone] Minh Mccarthy MD Clarification (Location for Labs) 11/09/2024 1:20 PM CDT Telemedicine [address] [phone] Minh Mccarthy MD Bacteremia (With peritonitis); Chronic Kidney Disease (ESRD on HD); Abnormal Lab Results (CPK elevation) 11/09/[address] [phone] Minh Mccarthy MD Lab Results 11/09/2024 Travel 11/08/2024 Scan [facility] Scanned, [facility] Lab (SCAN) 11/07/2024 Scan [facility] Scanned, [facility] Lab (SCAN) 11/03/2024 2:00 PM CDT Home Care Visit [address] [address] Jessica Bond, OT OT HOME VISIT 11/03/[address] [phone] Minh Mccarthy MD Medication 11/02/2024 Hospital Follow-up Call [facility] [place] [address] Rosibel Alonzo LPN Follow Up Call (PARISA 10/10-10/29/24) 11/01/2024 12:30 PM CDT Home Care Visit [address] [phone] Jessica Bond, SHIRA OT INITIAL EVALUATION 11/01/[address] [phone] Minh Mccarthy MD Appointment Request; Returned Call; Callback 10/31/2024 Telephone [facility] Hospice [place] [address], [facility] [address] [place] [address] Sulema Lennon NP Advice (Nurse Triage - After Hours ([id number])/) 10/30/2024 2:28 PM CDT - 10/30/2024 11:59 PM [place] [address] Minh Mccarthy MD Discharge Disposition: Home or Self Care (Routine Discharge) 10/30/2024 9:00 AM CDT Home Care Visit [facility] [address] [place] [phone] Mariana Glynn, RN SN OASIS START OF CARE 10/30/2024 Home Care Visit [facility] Care [address] [place] [phone] Ivett Willis, RN CASE COMMUNICATION 10/30/2024 Plan of Care Documentation [facility] Care [address] [place] [phone] 10/30/2024 Orders Only [facility] [address] Minh Mccarthy MD 10/10/2024 6:44 PM CDT - 10/29/2024 3:04 PM CDT Hospital Encounter [facility] [place] [address] Wagner Du MD,PHD Ben, MD Sherry Trivedi, [...] materials from doctor or pharmacy Never 11/23/2024 [facility] Utilities Answer Date Recorded In the past 12 months has e [employer], gas, oil, or water [employer] threatened to shut off services in your [...] any time in the past 12 m [facility], were you homeless or living in a skilled nursing (including now)? 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 Office Visit [facility] Medical Group Multispecialty Care - [address] [place] [address] Brian Denise MD [address] [place] [address] Health Maintenance Due Date Last Done Comments [...] Hepatitis C Completed 10/26/2024, 05/28/2018 PHQ-2 (Physician [place]) Completed 11/09/2024 Hepatitis A Vaccines Aged Out [...] TOTAL Routine 11/14/2024 9:40 AM CDT Peritonitis ([facility] HHS/HCC) OUTSIDE LAB (SCAN ORDER) 11/08/2024 OUTSIDE LAB (SCAN ORDER) 11/08/2024 OUTSIDE LAB (SCAN ORDER) 11/07/2024 HC COMPREHENSIVE METABOLIC PANEL Routine 10/30/2024 1:00 PM CDT Pericolitis ([facility] HHS/[facility]) Bacteremia Staphylococcus aureus infection, multiple-resistant (MRSA) Unresolved pneumonia HC CBC AUTO W/AUTO DIFF Routine 10/30/2024 1:00 PM CDT Pericolitis ([facility] HHS/HCC) Bacteremia Staphylococcus aureus infection, multiple-resistant (MRSA) Unresolved pneumonia HC CREATINE KINASE (CPK) TOTAL Routine 10/30/2024 1:00 PM CDT Pericolitis ([facility] HHS/[facility]) Bacteremia Staphylococcus aureus infection, multiple-resistant (MRSA) Unresolved [...] - 215 U/L 11/14/2024 10:51 AM CDT [facility] 11/14/2024 9:40 AM CDT Minh Mccarthy MD LABORATORY Final Result [facility] [address] [place] [address], * OUTSIDE LAB (SCAN ORDER) (11/08/2024) Only the most recent of3 resultswithin the time period is included. 11/08/2024 us [facility] Scanned SCANNING Final Resu lt * (ABNORMAL) COMPREHENSIVE METABOLIC PANEL (10/30/2024 1:00 PM CDT) GLUCOSE 116(H) 70 - 99 MG/DL 10/30/2024 3:35 PM CDT [facility] BUN 17 7 - 18 MG/DL 10/30/2024 3:35 PM CDT [facility] CREATININE S/P/B 6.88(HH) 0.55 - 1.02 MG/DL 10/30/2024 3:35 PM CDT [facility] Comment: Critical Result(s) Called at: 15:34:22 on 10/30/2024 by: KAIN QUINN to and read back by:NADER JOHNSON SODIUM S/P/B 138 136 - 145 MMOL/L 10/30/2024 3:35 PM CDT [facility] POTASSIUM S/P/B 3.9 3.5 - 5.1 MMOL/L 10/30/2024 3:35 PM CDT [facility] CHLORIDE S/P/B 100 97 - 115 MMOL/L 10/30/2024 3:35 PM CDT [facility] CO2 33.3(H) 21 - 32 MMOL/L 10/30/2024 3:35 PM CDT [facility] CALCIUM S/P/B 8.9 8.5 - 10.1 MG/DL 10/30/2024 3:35 PM [facility] BILIRUBIN TOTAL S/P/B 0.5 0.2 - 1.2 MG/DL 10/30/2024 3:35 PM [facility] Comment: THIS ASSAY IS NOT RECOMMENDED FOR PATIENTS UNDERGOING TREATMENT WITH ELTROMBOPAG DUE TO THE POTENTIAL FOR FALSELY ELEVATED RESULTS. TOTAL PROTEIN S/P/B 8.0 6.4 - 8.2 G/DL 10/30/2024 3:35 PM [facility] ALBUMIN S/P/B 1.9(L) 3.4 - 5.0 G/DL 10/30/2024 3:35 PM [facility] AST 29 15 - 37 U/L 10/30/2024 3:35 PM [facility] ALT 18 14 - 55 U/L 10/30/2024 3:35 PM [facility] ALKALINE PHOSPHATASE S/P/B 311(H) 50 - 136 U/L 10/30/2024 3:35 PM [facility] ANION GAP 4.7 2 - 10 MMOL/L 10/30/2024 3:35 PM [facility] BUN CREATININE RATIO 2.5(L) 6 - 26 10/30/2024 3:35 PM [facility] A/G RATIO 0.3(L) 1.0 - 2.0 RATIO 10/30/2024 3:35 PM [facility] GFR ESTIMATE 7(L) >90 ML/MIN/1.7 3 M2 10/30/2024 3:35 PM [facility] Comment: NOTE: eGFR is [...] us Minh Mccarthy MD LABORATORY Final Result [facility] [address] [place] [address], [place] [phone] * (ABNORMAL) CBC W/DIFF AUTOMATED (10/30/2024 1:00 PM CDT) Only the most recent of2 resultswithin the time period is included. Pathologist [facility] WBC 13.14(H) 4.5 - 11.0 x10'3/uL 10/30/2024 2:40 PM CDT [facility] RBC 3.53(L) 4.20 - 5.40 x10'6/uL 10/30/2024 2:40 PM CDT [facility] HGB 8.9(L) 12.0 - 16.0 G/DL 10/30/2024 2:40 PM CDT [facility] HCT 29.8(L) 38.0 - 48.0 % 10/30/2024 2:40 PM CDT [facility] MCV 84.4 81.0 - 99.0 FL 10/30/2024 2:40 PM CDT [facility] MCH 25.2(L) 27.0 - 31.0 PG 10/30/2024 2:40 PM CDT [facility] MCHC 29.9(L) 32.0 - 36.0 G/DL 10/30/2024 2:40 PM CDT [facility] RDW 15.7(H) 11.5 - 14.5 % 10/30/2024 2:40 PM CDT [facility] PLT 464(H) 130 - 400 x10'3/uL 10/30/2024 2:40 PM CDT [facility] MPV 9.7 9.3 - 12.2 FL 10/30/2024 2:40 PM CDT [facility] DIFFERENTIAL TYPE AUTOMATED DIFFERENTIAL 10/30/2024 2:40 PM CDT [facility] NEUTROPHILS % 66.7 % 10/30/2024 2:40 PM CDT [facility] LYMPHOCYTES % 20.5 % 10/30/2024 2:40 PM CDT [facility] MONOCYTES % 7.3 % 10/30/2024 2:40 PM CDT [facility] EOSINOPHILS 3.5 % 10/30/2024 2:40 PM CDT [facility] BASOPHILS 1.2 % 10/30/2024 2:40 PM CDT [facility] IMMATURE GRANS % 0.8 % 10/31/19 2:40 PM CDT [facility] ABS. NEUTROPHILS 8.75(H) 1.80 - 7.70 x10'3/uL 10/30/2024 2:40 PM CDT [facility] ABS. LYMPHOCYTES 2.70 1.00 - 4.80 x10'3/uL 10/30/2024 2:40 PM CDT [facility] ABS. MONOCYTES 0.96(H) 0.24 - 0.86 x10'3/uL 10/30/2024 2:40 PM CDT [facility] ABS. EOSINOPHILS 0.46(H) 0.04 - 0.36 x10'3/uL 10/30/2024 2:40 PM CDT [facility] ABS. BASOPHILS 0.16(H) 0.01 - 0.08 x10'3/uL 10/30/2024 2:40 PM CDT [facility] ABS. IMMATURE GRANULOCYTES 0.11 0.00 - 0.49 x10'3/uL 10/30/2024 2:40 PM CDT [facility] 10/30/2024 1:00 PM CDT Minh Mccarthy MD LABORATORY Final Result [facility] [address] [place] [address], * (ABNORMAL) BASIC METABOLIC PANEL (10/29/2024 6:41 AM CDT) GLUCOSE 101(H) 70 - 99 MG/DL 10/29/2024 7:36 AM CDT [facility] BUN 25(H) 7 - 18 MG/DL 10/29/2024 7:36 AM CDT [facility] CREATININE S/P/B 8.79(HH) 0.55 - 1.02 MG/DL 10/29/2024 7:36 AM CDT [facility] Comment:NOT CALLED PER [employer]ICY SODIUM S/P/B 137 136 - 145 MMOL/L 10/29/2024 7:36 AM CDT [facility] POTASSIUM S/P/B 3.8 3.5 - 5.1 MMOL/L 10/29/2024 7:36 AM CDT [facility] CHLORIDE S/P/B 101 97 - 115 MMOL/L 10/29/2024 7:36 AM CDT [facility] CO2 31.6 21 - 32 MMOL/L 10/29/2024 7:36 AM CDT [facility] CALCIUM S/P/B 8.4(L) 8.5 - 10.1 MG/DL 10/29/2024 7:36 AM CDT [facility] ANION GAP 4.4 2 - 10 MMOL/L 10/29/2024 7:36 AM CDT [facility] BUN CREATININE RATIO 2.8(L) 6 - 26 10/29/2024 7:36 AM CDT [facility] GFR ESTIMATE 5(L) >90 ML/MIN/1.7 3 M2 10/29/2024 7:36 AM CDT [facility] Comment: NOTE: eGFR is not [...] DO LABORATORY Final Result Performing Organization Address [facility] Co de Phone Number [facility] [address] [place] [address], [place] [phone] * (ABNORMAL) POCT glucose (10/29/2024 5:56 AM CDT) GLUCOSE POC 101(H) 70 - 99 mg/dL 10/29/2024 6:02 AM CDT [facility] 10/29/2024 5:56 AM CDT Jose Murdock MD POCT ORDERABLES - DEVICE Vicki l Result Performing Organization Address City/[facility]/ZIP Co de Phone Number [facility] [address] [place] [address], [place] [phone] * HEPATITIS PANEL,ACUTE (10/26/2024 7:06 PM CDT) HEPATITIS B SURFACE AG NON-REACTI VE NON-REACTI VE 10/26/2024 10:08 PM CDT [facility] HEP B CORE IGM NON-REACTI VE NON-REACTI VE 10/26/2024 10:08 PM CDT [facility] HAV IGM NON-REACTI VE NON-REACTI VE 10/26/2024 10:08 PM CDT [facility] HEPATITIS C AB NON-REACTI VE NON-REACTI VE 10/26/2024 10:08 PM CDT [facility] 10/26/2024 7:06 PM CDT us Homero Del Angel MD LABORATORY Final Result [facility] [address] [place] [address], [place] [phone] from Last 3 Months or Most Recently Relevant to Health Maintenance Additional Health Concerns 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
--- OUTSIDE RECORDS SUMMARY | 2025-01-28 07:50 | XMS_ITS | Encounter Summary ---
Author Organization [facility] Address [address] [place] [address] Care Team Providers Care Metals Analyst Name Role Phone Sulema Lennon [employer] NURSE Primary Care Provider [phone] Reason for Visit * Reason Onset Date Comments Advice 10/31/2024 Nurse Triage - A fter Hours ([id number]) Encounter Details Date Type Department Care Team (Late st Contact Info) Description 10/31/2024 Telephone [place] [address] [address] [facility] [address] [place] [phone] Sulema Lennon, [place] NURSE [address] [place] [address] Advice (Nurse Triage - After Hours ([id number])/) Social History Tobacco Use Types Packs/Day Years [...] materials from doctor or pharmacy Sometimes 10/30/2024 [facility] Utilities Answer Date Recorded In [...] AM CDT Nurse Triage - After Hours ([id number]) Comments Critical Lab Result Regarding: Hospice / Location Unknown / Dr. Mccarthy Regarding: Hospice -[facility] Assessment Notes PC from [facility] lab with critical results. Reports creatinine 6.88. PC to [facility] Cindy Bruce and advised of results. CALL PCP WITHIN 24 HOURS:CARE ADVICE given per PCP Call - No Triage (Adult) guideline. 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
--- NOTE | 2025-01-28 07:55 | PC.NURSE ---
Patient declines blood work at this time. EDP aware.
[2025-01-28 09:34] LABS: Anion Gap 13 mmol/L (4-12); Blood Urea Nitrogen 57 mg/dL (7-17); Calcium 9.5 mg/dL (8.4-10.2); Carbon Dioxide 19 mmol/L (22-30); Chloride 106 mmol/L (98-107); Estimated CRCL calculation 5 ml/min; Estimated Glomerular Filt Rate 3; Glucose 109 mg/dL (65-110); Potassium 5.4 mmol/L (3.4-5.0); Sodium 138 mmol/L (137-145)
[2025-01-28] MEDS: HYDROcodone/acetaminophen (*CRX) 10-325 MG TABLET 1 TAB PO (09:51)
--- NOTE | 2025-01-28 09:53 | PC.NURSE ---
Patient has bilateral wrist splints from home that she is wearing at this time.
[2025-01-28 10:09] VITALS: BP 114/81; PULSE 70; RESP 18; O2SAT 100
== END 2025-01-28 10:09 | disposition home or self-care (01) ==
PROVIDERS: Emergency Provider Emergency Medicine; PCP Nurse Practitioner Family
DX: G56.01 Carpal tunnel syndrome, right upper limb (principal); E87.5 Hyperkalemia; E11.22 Type 2 diabetes mellitus with diabetic chronic kidney disease; I12.0 Hypertensive chronic kidney disease with stage 5 chronic kidney disease or end stage renal disease; N18.6 End stage renal disease; Z99.2 Dependence on renal dialysis; D63.1 Anemia in chronic kidney disease; E11.42 Type 2 diabetes mellitus with diabetic polyneuropathy; K21.9 Gastro-esophageal reflux disease without esophagitis; M19.031 Primary osteoarthritis, right wrist; M17.12 Unilateral primary osteoarthritis, left knee; K58.9 Irritable bowel syndrome, unspecified; Z87.01 Personal history of pneumonia (recurrent); Z90.49 Acquired absence of other specified parts of digestive tract; Z90.79 Acquired absence of other genital organ(s); Z77.22 Contact with and (suspected) exposure to environmental tobacco smoke (acute) (chronic); Z79.4 Long term (current) use of insulin; Z79.01 Long term (current) use of anticoagulants; Z79.899 Other long term (current) drug therapy; R94.31 Abnormal electrocardiogram [ECG] [EKG]
CPT/HCPCS: 36415; 73110; 73130; 80048; 93005; 99283; A9270

== ENCOUNTER 2025-02-20 03:08 | Inpatient (IN) | payer MEDICARE, MEDICAID, SELFPAY ==
[2025-02-20] VITALS (45 sets, daily range): BP systolic 161–266; BP diastolic 66–140; PULSE 58–74; RESP 5–32; TEMP 36.3–36.9; O2SAT 91–100; BMI 34.3
--- NOTE | ~2025-02-20 | XR_ITS ---
Examination: XR chest 1V portable Clinical History: SOB Comparison: 01/16/2025 Technique: Portable AP Findings: Left permacath. Cardiomegaly. Large right and small left pleural effusions, associated bibasilar opacities. Mildly increased interstitial markings. No acute bony abnormality. IMPRESSION: 1. Large right and small left effusions, associated basilar atelectasis and/or airspace disease. 2. Interstitial pulmonary edema. Reviewed, dictated and finalized at location R. [facility]AD
--- NOTE | 2025-02-20 03:13 | ECG_ITS ---
Test Date: 2025-02-20 05:10:43 Measurements Intervals [place] Rate: 69 P: 46 KS: 152 QRS: -17 QRSD: 99 T: 53 QT: 411 QTc: 441 Interpretive Statements SINUS RHYTHM LOW QRS VOLTAGE IN PRECORDIAL LEADS POSSIBLE ANTERIOR MYOCARDIAL INFARCTION , OF INDETERMINATE AGE CONSIDER INFERIOR INFARCT, AGE INDETERMINATE BORDERLINE ST-T WAVE ABNORMALITY- HIGH LATERAL LEADS BASELINE ARTIFACT- I, II, III, AVR, AVL, AVF, V2-V3, V5-V6 ABNORMAL ECG Compared to ECG 01/28/2025 07:46:03 NO SIGNIFICANT CHANGE Electronically Signed On 02-20-2025 08:37:42 OFFSET LITHOGRAPHIC PRESS OPERATOR by Tomasz Scott D.O.
--- NOTE | 2025-02-20 03:34 | ED_ITS ---
HPI - SOB/Dyspnea General Chief Complaint: Shortness of Breath/Dyspnea Stated Complaint: SOB SINCE 02/18 AFTER HD Time Seen by Provider: 02/20/25 03:09 History of Present Illness HPI Narrative: 44-year-old female with history of end-stage renal disease on hemodialysis Thursday, , Thursday, previously on peritoneal dialysis. Patient also has history of uncontrolled hypertension, well-known to the emergency department for frequent presentations of shortness of breath and dialysis related complications. Patient presents today as she is feeling short of breath ever since her dialysis session on Thursday. She states she feels like she did not get enough fluid removed during the session even elevated remove 3 L. She is up about 6 kg from her dry weight of 89 kg after I talked with her. She states she is currently using a left IJ PermCath and transition to a peritoneal dialysis catheter. Has nonfunctioning fistula in the left upper extremity and able to use bilateral upper extremities for IV access. Previously I saw this patient 1 month ago for similar presentation and at that time she was severely hypertensive and dyspneic requiring BiPAP and IV blood pressure medicine. patient follows with local Nephrology group here and goes to [facility] dialysis. Denies any recent injuries or illnesses. Has not missed any dialysis sessions. No fever, cough, chest pain, chest tightness, wheezing, nausea, vomiting. States she is having difficulty lying flat feels volume overloaded and very puffy. Related Data Home Medications ?Medication ?Instructions ?Recorded ?Confirmed ?Last Taken ?Type lactulose 10 gram/15 mL oral 15 ml PO QHS PRN constipa tion 11/02/24 01/15/25 11/29/24 History solution sevelamer HCl 800 mg tablet 1,600 mg PO TID 11/02/24 1 03/17/24 11/29/24 History Allergies Allergy/AdvReac Type Severity Reaction Status Date / Time metronidazole Allergy Intermediate Rash Verified 01/28/25 07:14 omeprazole Allergy Intermediate Rash Verified 01/28/25 07:14 adhesive tape Allergy Mild Itching Verified 01/28/25 07:14 ibuprofen Allergy Unknown Verified 01/28/25 07:14 Review of Systems 2 Review of Systems: As reviewed above in HPI All systems reviewed & are unremarkable except as noted in HPI and below PMFSH Past Medical History Medical History Diabetic retinopathy 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 Diabetic polyneuropathy Right carpal tunnel syndrome Insulin dependent type 2 diabetes mellitus End-stage renal disease on peritoneal dialysis Obesity (BMI 30-39.9) Erythropoietin deficiency anemia Gastroesophageal reflux Arthritis Right wrist left knee Irritable bowel syndrome Diverticulitis Pneumonia Peripheral neuropathy Hypertension Surgical History Surgical History History of section x3 History of dilation and curettage History of appendectomy History of cholecystectomy History of salpingo-oophorectomy History of tubal ligation Family History Family History Mother Diabetes mellitus Breast cancer Sibling History of blood clots due to blood clot Heart disease Sister has something wrong with her heart Father Prostate carcinoma Hypertension Daughter , 06/08/2021, 19yo Pulmonary embolism due to PE Social History Social History Social History: Life ling nonsmoker. Denies alcohol or drug use. Lives with her son. Surrogate medical decision maker: Robert Smith, daughter. Code status: Full code. Smoking status: Never smoker Second hand tobacco smoke exposure: Yes Alcohol intake: never Substance use: never Substance use type: does not use Lack of Transportation: No Lack of Food: Never True Current Housing: I Have Housing Concerned About Future Housing: No Difficulty Paying Gas/Electric Bills: No Difficulty Paying for Meds: No Currently Unemployed: No Education: Decline to Answer Difficulty w/ Childcare or Family Care: No Living arrangements: with family Additional living arrangements comments: Lives with family in [place]. 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 Spiritual care concerns: No Agree to blood products: Yes Exam 2 Narrative: GENERAL: ill and dyspneic appearing, 2-3 word conversational dyspnea. Awake and answering all questions appropriately. Appears volume overloaded and puffy in the face and extremities. HEAD: [Normocephalic, atraumatic.] EYES: [PERRLA and EOMI.] ENT: Nares clear, no rhinorrhea or epistaxis. Mucous membranes moist. NECK: Supple. CHEST: Rales on auscultation, tachypnea with dyspnea. No wheezing. HEART: [Regular rate and rhythm]. No murmur heard. [Normal peripheral pulses.] ABDOMEN: [Soft, nondistended], [nontender], [No rigidity or guarding] EXTREMITIES: Normal range of motion. Peripheral edema noted. Periorbital edema noted. SKIN: Warm, dry, no rash. NEURO: [No focal deficits]. Alert and oriented [x3.] PSYCH: [Normal mood and affect.] Course Vital Signs Vital signs: Vital Signs Pulse Rate 67 02/20/25 03:08 Respiratory Rate 18 02/20/25 03:08 Blood Pressure 244/109 H 02/20/25 03:08 Pulse Oximetry 94 02/20/25 03:08 Oxygen Delivery Room Air 02/20/25 03:08 Pulse Rate 64 02/20/25 06:30 Respiratory Rate 20 02/20/25 06:30 Blood Pressure 228/93 H 02/20/25 06:30 Pulse Oximetry 99 02/20/25 06:30 Oxygen Delivery Room Air 02/20/25 05:19 Oxygen Flow Rate 2 02/20/25 04:38 Procedures EJ/Peripheral Line Arm L: EJ/Peripheral Line Date: 02/20/25 EJ/Peripheral Line Time: 04:25 Time Out Performed: Yes Skin Cleansed in Sterile Fashion: Yes Ultrasound Guided: Yes Size (gauge): 20 IV Secured and Dressing Applied: Yes Patient Tolerated Procedure: well and no complications [facility] Narrative Medical decision making narrative: 44-year-old female with history of end-stage renal disease on hemodialysis Thursday, , Thursday, previously on peritoneal dialysis. Patient also has history of uncontrolled hypertension, well-known to the emergency department for frequent presentations of shortness of breath and dialysis related complications. Patient presents today as she is feeling short of breath ever since her dialysis session on Thursday. She states she feels like she did not get enough fluid removed during the session even elevated remove 3 L. She is up about 6 kg from her dry weight of 89 kg after I talked with her. She states she is currently using a left IJ PermCath and transition to a peritoneal dialysis catheter. Has nonfunctioning fistula in the left upper extremity and able to use bilateral upper extremities for IV access. Previously I saw this patient 1 month ago for similar presentation and at that time she was severely hypertensive and dyspneic requiring BiPAP and IV blood pressure medicine. patient follows with local Nephrology group here and goes to [facility]. Denies any recent injuries or illnesses. Has not missed any dialysis sessions. No fever, cough, chest pain, chest tightness, wheezing, nausea, vomiting. States she is having difficulty lying flat feels volume overloaded and very puffy. Patient is ill and dyspneic appearing. She is severely hypertensive 244/109 but having a history of uncontrolled blood pressure on multiple antihypertensives and blood pressure readings even higher on previous presentations. No tachycardia. 95% on room air but we placed on supplemental oxygen for comfort. Previously required BiPAP therapy but she states she is not at that point and would like to hold off on noninvasive ventilation. Appears volume overloaded but has not missed any sessions. She is 94.6 kg today and above her dry weight so likely volume overloaded causing the hypertension as well but can not be a component of hypertensive urgency or emergency superimposed. Chest x-ray, BNP, laboratory studies and EKG ordered. She was given IV labetalol and Zofran. Oxygen placed on the patient. Patient will be admitted for dialysis after completion of workup and management in the emergency department. Will discuss with her Nephrology team. Patient re-evaluated after interventions and felt significantly better after oxygen and her anti hypertensive regimen and Lasix dose. Her blood pressure still elevated in the 260 systolic range so given additional labetalol with good effect dropped about 15% down to 220s. Patient much more comfortable no longer as dyspneic able to lie more flat and converses in clear full sentences at this time. Her chest x-rays concerning with large bilateral pleural effusions worse on the right side which were worse than previous x-rays seen recently. Likely source of patient's symptoms and volume overload. Her laboratory studies show no significant hyperkalemia, EKG unremarkable. No leukocytosis. Creatinine around baseline. Anemia around baseline. Negative viral panel. I discussed the case with patient's automotive lot attendant Dr. Fernandez and we agreed to get her dialyzed this morning. Asked for recommendations about blood pressure control and given that she is symptomatically improved no longer in distress, there is no goal blood pressure needed and defer to the hospitalist team regarding care after dialysis. Patient needs volume removal to help with her blood pressure and has a history of refractory blood pressure on review of the EMR. Spoke to the hospitalist Romina and the ICU physician Dr. Monroe. patient accepted to the ICU at this time. Re-evaluated again and still doing well. Intermittently requiring 2 L oxygen for comfort but not any distress. ICU orders placed, dialysis orders placed by Nephrology. Differential Diagnosis Differential Diagnosis: Fluid overload, PNA, pleural effusion, Covid, Flu, HTN emergency, SCAPE Lab Data MDM Lab Attestation statement: I personally reviewed the patient's lab results. 02/20/25 04:30 02/20/25 04:30 Labs: Lab Results 02/20/25 Range/Units 04:30 WBC 7.5 (4.5-10.0) K/mm3 RBC 3.97 L (4.2-5.4) M/mm3 Hgb 10.1 L (12.0-15.0) g/dL Hct 33.0 L (37.0-47.0) % MCV 83.1 (80-100) fl MCH 25.4 L (26-34) pg MCHC 30.6 L (32-36) g/dl RDW 23.0 H (11.5-14.5) % Plt Count 170 (150-375) k/mm3 MPV TNP Immature Gran % (Auto) 0.3 (0-0.5) % Neut % (Auto) 57.1 (45.5-73.1) % Lymph % (Auto) 23.6 (18.3-44.2) % [place] % (Auto) 7.6 (2.6-8.5) % Eos % (Auto) 10.1 H (0-4.4) % Baso % (Auto) 1.3 H (0.2-1.2) % Lymph # (Auto) 1.77 (0.9-3.2) K/mm3 [place] # (Auto) 0.6 (0.1-0.6) K/mm3 Eos # (Auto) 0.8 H (0-0.3) K/mm3 Baso # (Auto) 0.1 (0.0-0.1) K/mm3 Abs Immat Gran (auto) 0.02 (0.00-0.031) K/mm3 Absolute Neuts (auto) 4.3 (1.3-6.7) K/mm3 Absolute Nucleated RBC 0.000 (0.0-0.012) K/mm3 Nucleated RBC % 0.0 (0.0-0.2) % % Immature Plt Fraction 2.4 (0.9-11.2) % PT 18.5 H (11.1-14.7) Seconds INR 1.6 APTT 32.8 (22.3-36.8) Seconds Sodium 142 (137-145) mmol/L Potassium 5.2 H (3.4-5.0) mmol/L Chloride 107 (98-107) mmol/L Carbon Dioxide 27 (22-30) mmol/L Anion Gap 8 (4-12) mmol/L BUN 53 H (7-17) mg/dL Creatinine 11.30 H (0.7-1.0) mg/dL Estim Creat Clear Calc Not Reportable Estimated GFR 4 L (59 - ) Glucose 136 H (65-110) mg/dL Calcium 9.6 (8.4-10.2) mg/dL Magnesium 2.2 (1.6-2.3) mg/dL Total Bilirubin 1.1 (0.2-1.3) mg/dL AST 45 H (14-36) U/L ALT 73 H (6-35) U/L Alkaline Phosphatase 611 H (38-126) U/L NT-Pro-B Natriuret Pep Pending Total Protein 8.0 (6.3-8.2) g/dL Albumin 4.0 (3.5-5.1) g/dL Influenza A (RT-PCR) Negative (Negative) Influenza B (RT-PCR) Negative (Negative) RSV (RT-PCR) Negative (Negative) SARS-CoV-2 RNA (RT-PCR) Negative (Negative) Imaging Data Attestation: I personally reviewed and interpreted this imaging study as follows: My impression: large B/L pleural effusions, R>L Critical Care Time Critical Care Time Critical Care Time: Yes Time Type: Intermittent Initial evaluation, discuss w/ involved parties, attempting to gather old records: 15 minutes Documenting medical record: 15 minutes Review of results (EKG's, labs, imaging): 15 minutes Serial repeat bedside evaluation: 15 minutes Discussing case with multiple memebers of the care team and consultants: 15 minutes Total Critical Care Time: 75 Discharge Plan Discharge Clinical Impression: Shortness of breath, Fluid overload, Pleural effusion, bilateral, Hypertensive urgency, CKD (chronic kidney disease) stage V requiring chronic dialysis Patient Disposition: Still a Patient Condition: Stable Patient Language: Greenlandic Prescriptions: No Action lactulose 10 gram/15 mL solution 15 ml PO QHS PRN (Reason: constipation) insulin degludec 100 unit/mL (3 mL) insulin pen 10 unit subcut DAILY Qty: 15 1RF Eliquis 5 mg tablet 5 mg PO BID Qty: 60 5RF sevelamer HCl 800 mg tablet 1,600 mg PO TID Rx Instructions: must administer with a meal/food nifedipine [Procardia XL] 30 mg Tablet Extended Release 24hr 60 mg PO QAM Qty: 30 0RF dextrose [Glutose-15] 40 % Gel 15 g PO PRN PRN (Reason: Hypoglycemia) Qty: 112 0RF labetalol 100 mg Tablet 400 mg PO Q12HR Qty: 240 0RF hydrocodone-acetaminophen 5-325 mg tablet 1 tablet PO Q12H PRN (Reason: pain) Qty: 14 0RF (DME) pen needle, diabetic [Easy Comfort Pen [place]] 32 gauge x 5/32 needle See Rx Instructions .Route Qty: 50 3RF Rx Instructions: Inject insulin once daily As directed (DME) FreeStyle Alexandro 3 Plus Sensor Device See Rx Instructions .Route Qty: 2 3RF Rx Instructions: Check glucose continuously every 15 days As directed acetaminophen 500 mg tablet 1,000 mg PO TID PRN (Reason: tessie) Qty: 180 1RF pregabalin [Lyrica] 75 mg capsule 75 mg PO DAILY Qty: 90 1RF doxazosin [Cardura] 2 mg tablet 2 mg PO QHS Qty: 90 1RF losartan 100 mg tablet 100 mg PO DAILY Qty: 90 1RF Follow-up/Referrals: Sulema Lennon APRN [Primary Care Provider, Internal Medicine] Time of Disposition: 06:51
--- NOTE | 2025-02-20 04:39 | PC.NURSE ---
EDP put IV US 20 g left forearm
[2025-02-20 04:45] LABS: Hematocrit 33.0 % (37.0-47.0); Hemoglobin 10.1 g/dL (12.0-15.0); Immature Granulocyte Percent A 0.3 % (0-0.5); Immature Platelet Fraction Pct 2.4 % (0.9-11.2); Lymphocytes Absolute Auto 1.77 K/mm3 (0.9-3.2); Mean Corpuscular HGB Conc 30.6 g/dl (32-36); Mean Corpuscular Hemoglobin 25.4 pg (26-34); Mean Corpuscular Volume 83.1 fl (80-100); Nucleated Red Blood Cells Absolute Auto 0.000 K/mm3 (0.0-0.012); Nucleated Red Blood Cells Perc 0.0 % (0.0-0.2); Platelet Count Result 170 k/mm3 (150-375); Red Blood Count 3.97 M/mm3 (4.2-5.4); White Blood Count 7.5 K/mm3 (4.5-10.0)
[2025-02-20] MEDS: FUROSEMIDE INJ 100 MG/10 ML VIAL 80 MG IV PUSH (04:53)
[2025-02-20 05:01] LABS: INR 1.6; Prothrombin Time 18.5 Seconds (11.1-14.7)
[2025-02-20 05:02] LABS: Partial Thromboplastin Time 32.8 Seconds (22.3-36.8)
[2025-02-20 05:20] LABS: Influenza A QL RT-PCR Negative (Negative); Influenza B QL RT-PCR Negative (Negative); RSV RNA, RT-PCR Negative (Negative); SARS-CoV-2 RNA PCR Negative (Negative)
[2025-02-20] MEDS: DOXAZOSIN MESYLATE 2 MG TABLET PO (05:48)
[2025-02-20] MEDS: LOSARTAN POTASSIUM 100 MG TABLET PO (05:49)
[2025-02-20 06:18] LABS: Alanine Aminotransferase 73 U/L (6-35); Albumin Level 4.0 g/dL (3.5-5.1); Alkaline Phosphatase 611 U/L (38-126); Anion Gap 8 mmol/L (4-12); Aspartate Amino Transferase 45 U/L (14-36); Bilirubin,Total 1.1 mg/dL (0.2-1.3); Blood Urea Nitrogen 53 mg/dL (7-17); Calcium 9.6 mg/dL (8.4-10.2); Carbon Dioxide 27 mmol/L (22-30); Chloride 107 mmol/L (98-107); Estimated Glomerular Filt Rate 4; Glucose 136 mg/dL (65-110); Magnesium 2.2 mg/dL (1.6-2.3); Potassium 5.2 mmol/L (3.4-5.0); Sodium 142 mmol/L (137-145); Total Protein 8.0 g/dL (6.3-8.2)
[2025-02-20 07:23] LABS: NT Pro B Type Natriuretic Pept > 30000 pg/mL (19.9-100)
--- NOTE | 2025-02-20 07:57 | PM.IMHP2 ---
H&P: HPI History of Present Illness Date/Time: 02/20/25 07:57 Chief Complaint: Shortness of breath Narrative: 44-year-old female with history of ESRD on hemodialysis Thursday, previously on peritoneal dialysis discontinued due to abdominal infection requiring drain placement in 09/2024, history of uncontrolled hypertension, obesity, insulin-dependent diabetes mellitus, history of CVA with residual vision changes in balance issues, history of blood clot in the right neck vein. She has frequent presentations with shortness of breath and dialysis related complications. She has been feeling short of breath since her last dialysis on Thursday02/18/2025. She had 3 L removed however reports she is 6 kg up from her dry weight of 89 kg. Currently, she is using a left IJ PermCath, and transitioning to peritoneal dialysis soon. Nonfunctional fistula in the left upper extremity. She was recently hospitalized for shortness of breath, fluid overload, hypertension requiring BiPAP. She sees local Nephrology group and goes to [facility] dialysis. She denies fever cough chest pain, wheezing, nausea vomiting, diarrhea. Reports orthopnea. Blood pressure on arrival 262/102. She received Lasix 80 mg IV x1, doxazosin 2 mg p.o. x1, nifedipine 60 mg p.o. x1, losartan 100 mg p.o. x1, labetalol 20 mg IV x2. Blood pressure improved to 221/96, she was resting comfortably while in bed. Nephrology consulted for dialysis. Review of Systems Review of Systems: All systems reviewed & are unremarkable except as noted in HPI and below (Subjective) [facility] Past Medical History Medical History Diabetic retinopathy detention current use of anticoagulant Diabetic polyneuropathy Right carpal tunnel syndrome Insulin dependent type 2 diabetes mellitus End-stage renal disease on peritoneal dialysis Obesity (BMI 30-39.9) Erythropoietin deficiency anemia Gastroesophageal reflux Arthritis Right wrist left knee Irritable bowel syndrome Diverticulitis Pneumonia Peripheral neuropathy Hypertension Surgical History Surgical History History of section x3 History of dilation and curettage History of appendectomy History of cholecystectomy History of salpingo-oophorectomy History of tubal ligation Family History Family History Mother Diabetes mellitus Breast cancer Sibling History of blood clots due to blood clot Heart disease Sister has something wrong with her heart Father Prostate carcinoma Hypertension Daughter , 06/08/2021, 19yo Pulmonary embolism due to PE Social History Social History Social History: Life ling nonsmoker. Denies alcohol or drug use. Lives with her son. Surrogate medical decision maker: Robert Smith, daughter. Code status: Full code. Smoking status: Never smoker Second hand tobacco smoke exposure: Yes Alcohol intake: never Substance use: never Substance use type: does not use Lack of Transportation: No Lack of Food: Never True Current Housing: I Have Housing Concerned About Future Housing: No Difficulty Paying Gas/Electric Bills: No Difficulty Paying for Meds: No Currently Unemployed: No Education: Decline to Answer Difficulty w/ Childcare or Family Care: No Living arrangements: with family Additional living arrangements comments: Lives with family in [place]. 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 Spiritual care concerns: No Agree to blood products: Yes Meds Home Medications and Allergies Home Medications ?Medication ?Instructions ?Recorded ?Confirmed ?Type pen needle, diabetic 32 gauge x #50 ea 08/01/24 01/15/25 Rx 5/32 (Easy Comfort Pen [place]) apixaban 5 mg tablet (Eliquis) 5 mg PO BID #60 tabs 11/02/24 01/15/25 Rx insulin degludec 100 unit/mL (3 10 unit (0.1 mL) subcut DAILY #15 11/02/24 01/15/25 Rx mL) subcutaneous pen mL lactulose 10 gram/15 mL oral 15 ml PO QHS PRN constipation 11/02/24 01/15/25 History solution sevelamer HCl 800 mg tablet 1,600 mg PO TID 11/02/24 01/15/25 History blood-glucose sensor (FreeStyle #2 ea 11/03/24 01/15/25 Rx Alexandro 3 Plus Sensor device) acetaminophen 500 mg tablet 1,000 mg (2 x 500 mg) PO TID PRN 11/04/24 01/15/25 Rx tessie #180 tabs dextrose 40 % oral gel (Glutose-15) 15 g PO PRN PRN Hypoglycemia #112 12/02/24 01/15/25 Rx grams labetalol 100 mg tablet 400 mg (4 x 100 mg) PO Q12HR #240 12/02/24 01/15/25 Rx tabs pregabalin 75 mg capsule (Lyrica) 75 mg PO DAILY #90 caps 12/30/24 01/15/25 Rx doxazosin 2 mg tablet (Cardura) 2 mg PO QHS #90 tabs 01/10/25 01/15/25 Rx losartan 100 mg tablet 100 mg PO DAILY #90 tabs 01/10/25 01/15/25 Rx nifedipine 30 mg tablet,extended 60 mg (2 x 30 mg) PO QAM #30 tabs 01/18/25 Rx release 24 hr (Procardia XL) hydrocodone 5 mg-acetaminophen 325 1 tablet PO Q12H PRN pain #14 tabs 01/28/25 Rx mg tablet Allergies Allergy/AdvReac Type Severity Reaction Status Date / Time metronidazole Allergy Intermediate Rash Verified 01/28/25 07:14 omeprazole Allergy Intermediate Rash Verified 01/28/25 07:14 adhesive tape Allergy Mild Itching Verified 01/28/25 07:14 ibuprofen Allergy Unknown Verified 01/28/25 07:14 Vital Signs Vital Signs - 24 hr 02/20/25 03:08 02/20/25 04:37 02/20/25 04:38 Pulse Rate 67 69 Respiratory Rate 18 Blood Pressure 244/109 H Pulse Oximetry 94 100 Oxygen Delivery Room Air Nasal Cannula Oxygen Flow Rate 2 02/20/25 05:18 02/20/25 05:18 02/20/25 05:19 Pulse Rate 62 62 Respiratory Rate 19 5 L Blood Pressure 261/111 H Pulse Oximetry 100 100 96 Oxygen Delivery Room Air Oxygen Flow Rate 02/20/25 05:30 02/20/25 05:40 02/20/25 05:41 Pulse Rate 68 66 65 Respiratory Rate 15 14 16 Blood Pressure 259/102 H 259/102 H Pulse Oximetry 100 100 100 Oxygen Delivery Oxygen Flow Rate 02/20/25 05:45 02/20/25 05:46 02/20/25 05:56 Pulse Rate 72 64 Respiratory Rate 13 19 19 Blood Pressure 250/122 H 262/102 H Pulse Oximetry 100 100 98 Oxygen Delivery Oxygen Flow Rate 02/20/25 05:56 02/20/25 06:00 02/20/25 06:01 Pulse Rate 67 63 67 Respiratory Rate 19 13 18 Blood Pressure 262/102 H 262/105 H Pulse Oximetry 100 100 Oxygen Delivery Oxygen Flow Rate 02/20/25 06:09 02/20/25 06:11 02/20/25 06:15 Pulse Rate 69 66 64 Respiratory Rate 13 21 H 14 Blood Pressure 266/108 H 266/108 H 266/114 H Pulse Oximetry 97 96 100 Oxygen Delivery Oxygen Flow Rate 02/20/25 06:16 02/20/25 06:23 02/20/25 06:26 Pulse Rate 74 72 Respiratory Rate 32 H 29 H 22 H Blood Pressure 233/102 H 236/101 H Pulse Oximetry 100 Oxygen Delivery Oxygen Flow Rate 02/20/25 06:27 02/20/25 06:27 02/20/25 06:30 Pulse Rate 68 66 64 Respiratory Rate 24 H 25 H 20 Blood Pressure 236/108 H 236/108 H 228/93 H Pulse Oximetry 99 98 99 Oxygen Delivery Oxygen Flow Rate 02/20/25 06:58 02/20/25 06:59 Pulse Rate 65 67 Respiratory Rate 15 15 Blood Pressure 221/96 H 221/96 H Pulse Oximetry 100 100 Oxygen Delivery Oxygen Flow Rate Exam Const: General: comfortable and no acute distress Other: A&O x3 Eyes: Pupils: Equal, round and reactive pupils present Neck: Neck: supple Resp: Effort & Inspection: normal respiratory effort Auscultation: crackles Cardio: Rate: regular rate Rhythm: regular rhythm GI: Inspection: non-distended GI Palp: Yes Soft to palpation Extrem: General: edema Results Labs Labs: Short CBC 02/20/25 Range/Units 04:30 WBC 7.5 (4.5-10.0) K/mm3 Hgb 10.1 L (12.0-15.0) g/dL Hct 33.0 L (37.0-47.0) % Plt Count 170 (150-375) k/mm3 [facility] 02/20/25 04:30 Sodium 142 Potassium 5.2 H Chloride 107 Carbon Dioxide 27 BUN 53 H Creatinine 11.30 H Glucose 136 H Calcium 9.6 Liver Function 02/20/25 Range/Units 04:30 Total Bilirubin 1.1 (0.2-1.3) mg/dL AST 45 H (14-36) U/L ALT 73 H (6-35) U/L Alkaline Phosphatase 611 H (38-126) U/L Albumin 4.0 (3.5-5.1) g/dL Assessment and Plan Assessment and plan (1) Hypertension: Code(s): I10 - Essential (primary) hypertension Status: Chronic (2) Hypertensive urgency: Code(s): I16.0 - Hypertensive urgency Status: Acute (3) ESRD (end stage renal disease): Code(s): N18.6 - End stage renal disease Status: Acute Plan 44-year-old female with history of ESRD on hemodialysis Thursday, previously on peritoneal dialysis discontinued due to abdominal infection requiring drain placement in 09/2024, history of uncontrolled hypertension, obesity, insulin-dependent diabetes mellitus, history of CVA with residual vision changes in balance issues, history of blood clot in the right neck vein. She has frequent presentations with shortness of breath and dialysis related complications. She has been feeling short of breath since her last dialysis on Thursday02/18/2025. She had 3 L removed however reports she is 6 kg up from her dry weight of 89 kg. Currently, she is using a left IJ PermCath, and transitioning to peritoneal dialysis soon. Nonfunctional fistula in the left upper extremity. She was recently hospitalized for shortness of breath, fluid overload, hypertension requiring BiPAP. She sees local Nephrology group and goes to [facility] dialysis. She denies fever cough chest pain, wheezing, nausea vomiting, diarrhea. Reports orthopnea. Blood pressure on arrival 262/102. She received Lasix 80 mg IV x1, doxazosin 2 mg p.o. x1, nifedipine 60 mg p.o. x1, losartan 100 mg p.o. x1, labetalol 20 mg IV x2. Blood pressure improved to 221/96, she was resting comfortably while in bed. Nephrology consulted for dialysis. ----- Blood pressure relatively improved since admission. Planning for dialysis today, monitor blood pressure and restart CANVAS CUTTER medications as needed. Lower blood pressure gradually. Fluid overload, dialysis today. Was placed on oxygen for comfort but was not reported to be hypoxic. Large right and small left pleural effusions, associated basilar atelectasis, interstitial edema. Monitor with dialysis. Insulin-dependent diabetes mellitus. Resume CANVAS CUTTER insulin. Accu-Cheks a.c. HS. Low-dose insulin sliding scale. Transaminitis, likely congestive hepatopathy. Monitor. ----- Patient wishes to be full code Renal, diabetic, heart healthy diet. Resume CANVAS CUTTER Eliquis Time Spent with Patient Time with patient: 45 - 74 minutes Hospitalist MIPS Advance Care Plan I have confirmed that the patient's Advanced Care Plan is present, code status is documented, or surrogate decision maker is listed in patient medical record.: Yes Medication Reconciliation I have utilized all available resources to obtain, update and review the patients current medications (includes all prescriptions, OTC, herbals, cannabis, and nutritional supplements).: Yes
[2025-02-20 08:32] LABS: MRSA (PCR) NOT DETECTED (NOT DETECTE)
--- NOTE | 2025-02-20 13:16 | WPDCNINT2 ---
Assessment and Plan Assessment and plan (1) Hypertensive urgency: Code(s): I16.0 - Hypertensive urgency Status: Acute (2) Pleural effusion, bilateral: Code(s): J90 - Pleural effusion, not elsewhere classified Status: Acute (3) Fluid overload: Code(s): E87.70 - Fluid overload, unspecified Status: Acute (4) ESRD needing dialysis: Code(s): N18.6 - End stage renal disease; Z99.2 - Dependence on renal dialysis Status: Acute Plan 1. Neurologically: Patient is awake and following commands. No neurological findings or symptoms 2. Respiratory: Distress associated with volume excess. She is currently on room air and her shortness of breath has improved after dialysis as expected. 3. Cardiovascular: Blood pressure is fairly elevated, this happens frequently. Continue home medications. Nephrology will be consulted. As expected proBNP was fairly elevated 4. GI: No symptoms. 5. and Renal: Continue with hemodialysis per Nephrology. Apparently she wants to transition to peritoneal dialysis after having had previous infection which occurred tell that therapeutic modality. Potassium was 5.2 6. Endocrine: History of diabetes mellitus. She is on long-acting insulin 10 units daily. Will start on sliding scale insulin and resume her long-acting insulin. No documented history of thyroid disease. 7. Hematologically: Proximal count was normal with relatively stable hemoglobin and platelet count. She has chronic anemia as expected 8. Id: No definite evidence of acute infection new 9. DVT prophylaxis: This patient is on Coumadin takes 5 mg a day. Her INR today was 1.6. 10. Disposition: Patient is stable to move out of the ICU. 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 Her blood pressures were extremely elevated over 220 systolic. Chest x-ray showed volume excess with bilateral pleural effusions and increased interstitial prominence after she was admitted for emergency dialysis and blood pressure control. In the emergency room she received several doses of IV medications including labetalol as well as her p.o. losartan. Upon arrival to the ICU she was emergently dialyzed and after negative 4 L her blood pressures down to the 170s. Her shortness of breath has improved. Review of Systems Constitutional: Constitutional: Reports chills Comments: Experience chills consistently Eyes: Comments: Shown ?floating spots ?in the right eye for which she has been seen by Ophthalmology ENT: Reports system reviewed and no additional complaints, except as documented Cardiovascular: Cardiovascular: Reports no additional cardiovascular complaints Respiratory: Respiratory: Reports dyspnea Gastrointestinal: Gastrointestinal: Reports no additional gastrointestinal complaints Genitourinary: Genitourinary: Reports no additional female genitourinary complaints Musculoskeletal: Musculoskeletal: Reports no additional musculoskeletal complaints Psychiatric: Psychiatric: Reports no additional psychiatric complaints [facility] Past Medical History Medical History Diabetic retinopathy 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 Diabetic polyneuropathy Right carpal tunnel syndrome Insulin dependent type 2 diabetes mellitus End-stage renal disease on peritoneal dialysis Obesity (BMI 30-39.9) Erythropoietin deficiency anemia Gastroesophageal reflux Arthritis Right wrist left knee Irritable bowel syndrome Diverticulitis Pneumonia Peripheral neuropathy Hypertension Surgical History Surgical History History of section x3 History of dilation and curettage History of appendectomy History of cholecystectomy History of salpingo-oophorectomy History of tubal ligation Family History Family History Mother Diabetes mellitus Breast cancer Sibling History of blood clots due to blood clot Heart disease Sister has something wrong with her heart Father Prostate carcinoma Hypertension Daughter , 06/08/2021, 19yo Pulmonary embolism due to PE Social History Social History Social History: Life ling nonsmoker. Denies alcohol or drug use. Lives with her son. Surrogate medical decision maker: Robert Smith, daughter. Code status: Full code. Smoking status: Never smoker Second hand tobacco smoke exposure: Yes Alcohol intake: never Substance use: never Substance use type: does not use Lack of Transportation: YES Lack of Food: Sometimes True Current Housing: I Have Housing Concerned About Future Housing: No Difficulty Paying Gas/Electric Bills: YES Difficulty Paying for Meds: YES Currently Unemployed: No Education: High School Diploma/GED Difficulty w/ Childcare or Family Care: No Living arrangements: with family Additional living arrangements comments: Lives with family in [place]. 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 Spiritual care concerns: No Agree to blood products: Yes Meds Home Medications and Allergies Home Medications ?Medication ?Instructions ?Recorded ?Confirmed ?Type pen needle, diabetic 32 gauge x #50 ea 08/01/24 01/15/25 Rx 5/32 (Easy Comfort Pen [place]) apixaban 5 mg tablet (Eliquis) 5 mg PO BID #60 tabs 11/02/24 02/20/25 Rx insulin degludec 100 unit/mL (3 10 unit (0.1 mL) subcut DAILY #15 11/02/24 02/20/25 Rx mL) subcutaneous pen mL lactulose 10 gram/15 mL oral 15 ml PO QHS PRN constipation 11/02/24 02/20/25 History solution sevelamer HCl 800 mg tablet 1,600 mg PO TID 11/02/24 02/20/25 History blood-glucose sensor (FreeStyle #2 ea 11/03/24 01/15/25 Rx Alexandro 3 Plus Sensor device) acetaminophen 500 mg tablet 1,000 mg (2 x 500 mg) PO TID PRN 11/04/24 02/20/25 Rx tessie #180 tabs dextrose 40 % oral gel (Glutose-15) 15 g PO PRN PRN Hypoglycemia #112 12/02/24 02/20/25 Rx grams labetalol 100 mg tablet 400 mg (4 x 100 mg) PO Q12HR #240 12/02/24 02/20/25 Rx tabs pregabalin 75 mg capsule (Lyrica) 75 mg PO DAILY #90 caps 12/30/24 02/20/25 Rx doxazosin 2 mg tablet (Cardura) 2 mg PO QHS #90 tabs 01/10/25 02/20/25 Rx losartan 100 mg tablet 100 mg PO DAILY #90 tabs 01/10/25 02/20/25 Rx nifedipine 30 mg tablet,extended 60 mg (2 x 30 mg) PO QAM #30 tabs 01/18/25 02/20/25 Rx release 24 hr (Procardia XL) hydrocodone 5 mg-acetaminophen 325 1 tablet PO Q12H PRN pain #14 tabs 01/28/25 02/20/25 Rx mg tablet Allergies Allergy/AdvReac Type Severity Reaction Status Date / Time metronidazole Allergy Intermediate Rash Verified 02/20/25 09:20 omeprazole Allergy Intermediate Rash Verified 02/20/25 09:20 adhesive tape Allergy Mild Itching Verified 02/20/25 09:20 ibuprofen Allergy Unknown Verified 02/20/25 09:20 Vital Signs Vital Signs - 24 hr 02/20/25 03:08 02/20/25 04:37 02/20/25 04:38 Temperature Pulse Rate 67 69 Respiratory Rate 18 Blood Pressure 244/109 H Pulse Oximetry 94 100 Oxygen Delivery Room Air Nasal Cannula Oxygen Flow Rate 2 02/20/25 05:18 02/20/25 05:18 02/20/25 05:19 Temperature Pulse Rate 62 62 Respiratory Rate 19 5 L Blood Pressure 261/111 H Pulse Oximetry 100 100 96 Oxygen Delivery Room Air Oxygen Flow Rate 02/20/25 05:30 02/20/25 05:40 02/20/25 05:41 Temperature Pulse Rate 68 66 65 Respiratory Rate 15 14 16 Blood Pressure 259/102 H 259/102 H Pulse Oximetry 100 100 100 Oxygen Delivery Oxygen Flow Rate 02/20/25 05:45 02/20/25 05:46 02/20/25 05:56 Temperature Pulse Rate 72 64 Respiratory Rate 13 19 19 Blood Pressure 250/122 H 262/102 H Pulse Oximetry 100 100 98 Oxygen Delivery Oxygen Flow Rate 02/20/25 05:56 02/20/25 06:00 02/20/25 06:01 Temperature Pulse Rate 67 63 67 Respiratory Rate 19 13 18 Blood Pressure 262/102 H 262/105 H Pulse Oximetry 100 100 Oxygen Delivery Oxygen Flow Rate 02/20/25 06:09 02/20/25 06:11 02/20/25 06:15 Temperature Pulse Rate 69 66 64 Respiratory Rate 13 21 H 14 Blood Pressure 266/108 H 266/108 H 266/114 H Pulse Oximetry 97 96 100 Oxygen Delivery Oxygen Flow Rate 02/20/25 06:16 02/20/25 06:23 02/20/25 06:26 Temperature Pulse Rate 74 72 Respiratory Rate 32 H 29 H 22 H Blood Pressure 233/102 H 236/101 H Pulse Oximetry 100 Oxygen Delivery Oxygen Flow Rate 02/20/25 06:27 02/20/25 06:27 02/20/25 06:30 Temperature Pulse Rate 68 66 64 Respiratory Rate 24 H 25 H 20 Blood Pressure 236/108 H 236/108 H 228/93 H Pulse Oximetry 99 98 99 Oxygen Delivery Oxygen Flow Rate 02/20/25 06:58 02/20/25 06:59 02/20/25 08:00 Temperature Pulse Rate 65 67 70 Respiratory Rate 15 15 16 Blood Pressure 221/96 H 221/96 H 229/99 H Pulse Oximetry 100 100 100 Oxygen Delivery Oxygen Flow Rate 02/20/25 08:45 02/20/25 09:24 02/20/25 09:35 Temperature 97.5 F L Pulse Rate 67 68 Respiratory Rate 24 H Blood Pressure 181/130 H 192/88 H Pulse Oximetry 94 Oxygen Delivery Room Air Oxygen Flow Rate 02/20/25 09:50 02/20/25 10:00 02/20/25 10:00 Temperature Pulse Rate 62 65 66 Respiratory Rate Blood Pressure 187/80 H 173/84 H 173/84 H Pulse Oximetry 91 Oxygen Delivery Oxygen Flow Rate 02/20/25 10:15 02/20/25 10:30 02/20/25 10:45 Temperature Pulse Rate 66 67 68 Respiratory Rate Blood Pressure 178/85 H 186/81 H 182/66 H Pulse Oximetry Oxygen Delivery Oxygen Flow Rate 02/20/25 11:00 02/20/25 11:00 02/20/25 11:15 Temperature Pulse Rate 60 59 L 62 Respiratory Rate 18 Blood Pressure 175/76 H 181/79 H 181/79 H Pulse Oximetry 95 Oxygen Delivery Oxygen Flow Rate 02/20/25 11:30 02/20/25 11:45 02/20/25 12:00 Temperature Pulse Rate 67 65 60 Respiratory Rate Blood Pressure 180/114 H 181/92 H 178/72 H Pulse Oximetry Oxygen Delivery Oxygen Flow Rate 02/20/25 12:00 02/20/25 12:15 02/20/25 12:30 Temperature Pulse Rate 67 59 L 59 L Respiratory Rate Blood Pressure 191/70 H 191/70 H 190/74 H Pulse Oximetry 96 Oxygen Delivery Oxygen Flow Rate Exam Narrative: Awake alert following commands Const: General: comfortable HENMT: Face/Nose/Sinus: Normal nares present Eyes: General: appearance normal, both eyes and all related structures Neck: Neck: supple Resp: Effort & Inspection: normal respiratory effort Auscultation: rales Other: At the bases Cardio: Rate: regular rate Heart sounds: Murmur heart sound present GI: GI Palp: Yes Soft to palpation Auscultation: normal bowel sounds Other: Peritoneal dialysis present Skin: General skin exam: normal color Neuro: Speech: normal speech Motor exam (neuro): 5/5 motor strength present throughout Extrem: General: normal to inspection Psych: Mental Status: mental status grossly normal Results Labs 02/20/25 04:30 02/20/25 04:30 Labs: Short CBC 02/20/25 Range/Units 04:30 WBC 7.5 (4.5-10.0) K/mm3 Hgb 10.1 L (12.0-15.0) g/dL Hct 33.0 L (37.0-47.0) % Plt Count 170 (150-375) k/mm3 BMP 02/20/25 04:30 Sodium 142 Potassium 5.2 H Chloride 107 Carbon Dioxide 27 BUN 53 H Creatinine 11.30 H Glucose 136 H Calcium 9.6 Liver Function 02/20/25 Range/Units 04:30 Total Bilirubin 1.1 (0.2-1.3) mg/dL AST 45 H (14-36) U/L ALT 73 H (6-35) U/L Alkaline Phosphatase 611 H (38-126) U/L Albumin 4.0 (3.5-5.1) g/dL
--- NOTE | 2025-02-20 14:12 | PM.EVENT ---
Event Note Event Note Event Note: patient is on dialysis and tolerating it well. Going for 4L the patient was seen at 12:15 p.m.
--- NOTE | 2025-02-20 14:12 | PM.CNNEP ---
Assessment and Plan Assessment and plan (1) End stage chronic kidney disease: Code(s): N18.6 - End stage renal disease Status: Acute Assessment and Plan: Amy Rodas has end-stage renal disease. This is likely due to diabetes and hypertension. She has been on hemodialysis. She is training to do peritoneal dialysis at home again. Unfortunately she only went to hemodialysis twice last week and fluid has gotten the best of her. She gains a lot of weight between treatments. She says that she does not cramp during dialysis and her blood pressures not drop during dialysis so there is no reason we can not get more fluid off during the treatments. she does tell the nurses not to take as much off. I think the dry weight at the dialysis unit is correct so we will try to get her down to the 79kg weight that she left at before. She does have a new peritoneal dialysis catheter in. She is training to do peritoneal dialysis. (2) Respiratory failure: Code(s): J96.90 - Respiratory failure, unspecified, unspecified whether with hypoxia or hypercapnia Status: Acute Assessment and Plan: the patient is looking better just with a drop in the blood pressure and improvement in afterload. Will take fluid off as well to improve LVEDP. (3) Hypertensive emergency: Code(s): I16.1 - Hypertensive emergency Status: Acute Assessment and Plan: Blood pressure is improving with fluid removal (4) Hand pain, right: Code(s): M79.641 - Pain in right hand Status: Acute Assessment and Plan: the patient has carpal tunnel syndrome as well as diabetic neuropathy (5) Diabetic retinopathy associated with type 2 diabetes mellitus: Code(s): E11.319 - Type 2 diabetes mellitus with unspecified diabetic retinopathy without macular edema Status: Acute Assessment and Plan: She is on a sliding scale insulin plus Accu-Cheks. Hospitalist/workforce services representative to manage this. (6) Dyslipidemia: Code(s): E78.5 - Hyperlipidemia, unspecified Status: Chronic Assessment and Plan: She is not on a statin. (7) Anemia: Code(s): D64.9 - Anemia, unspecified Status: Chronic Assessment and Plan: Hemoglobin is 10.1. We will need to give her some Epogen but will wait until blood pressure comes down some History of Present Illness Reason for Consult Consult date: 02/20/25 Chief Complaint Chief complaint: volume overloaded, sob,plueral effusion,htn History of Present Illness Narrative: Bakari is a very pleasant 44-year-old lady who has multiple medical problems including end-stage renal dialysis on treatment 3 times a week currently. She has diabetes, diabetic retinopathy, diabetic neuropathy, right carpal tunnel syndrome, high body mass index, anemia, renal osteodystrophy, hypertension, degenerative joint disease, GERD. The patient was in the hospital in mid to late December. She had volume overload. She was treated frequently with dialysis and her weight at discharge was 79.4 which is her dry weight at [facility]. After discharge she went to her 1st session and her weight was all all the way up to almost 85kg. during her dialysis sessions as an outpatient she refuses to allow the nurses to take all the fluid off and so she actually was [id number] at 1 point pre dialysis. On Thursday she came in to the treatment and she was not feeling well and she was short of breath. They tried to take as much fluid off is they could but no where near of enough to get her to her dry weight. They encouraged her to go to the hospital because she was feeling so bad but she wanted to wait and see if she could come train with Romina today but yesterday she was so short of breath she came into the hospital. In the ER she was evaluated her blood pressure was extremely high. Her potassium was a little high as well. she was given antihypertensives and some diuretic and she felt better this morning. She is currently getting dialysis. She is getting a dry ultrafiltration aiming for removal of 4L today. So far the patient does not have any cramping. She does feel better now than she did before. Patient I discussed at length. She gains a lot a weight between treatments and she does not allow fluid removal during dialysis. This is a recipe for recurrent hospitalizations due to fluid overload. She is about to transition back to peritoneal dialysis and there is no way she is going to be able to keep that fluid off if she continues to drink this much fluid. She denies drinking fluid but he can not deny that her weight rises between treatments by so much. Maybe it is hidden fluid in food or possibly she just isn't mindful of counting the amount that she drinks. In any case recurrent fluid overload like this is going to lead to some cardiac issues. In addition all the excess fluid leads to high blood pressure. She has had high blood pressure for the last few treatments as well at the outpatient center. Her echocardiogram does show moderate concentric increased LV wall thickness consistent with chronic hypertension. This is most likely all stemming from her fluid overload. 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 Diabetic polyneuropathy Right carpal tunnel syndrome Insulin dependent type 2 diabetes mellitus End-stage renal disease on peritoneal dialysis Obesity (BMI 30-39.9) Erythropoietin deficiency anemia Gastroesophageal reflux Arthritis Right wrist left knee Irritable bowel syndrome Diverticulitis Pneumonia Peripheral neuropathy Hypertension Surgical History Surgical History History of section x3 History of dilation and curettage History of appendectomy History of cholecystectomy History of salpingo-oophorectomy History of tubal ligation Family History Family History Mother Diabetes mellitus Breast cancer Sibling History of blood clots due to blood clot Heart disease Sister has something wrong with her heart Father Prostate carcinoma Hypertension Daughter , 06/08/2021, 19yo Pulmonary embolism due to PE Social History Social History Social History: Life ling nonsmoker. Denies alcohol or drug use. Lives with her son. Surrogate medical decision maker: Robert Smith, daughter. Code status: Full code. Smoking status: Never smoker Second hand tobacco smoke exposure: Yes Alcohol intake: never Substance use: never Substance use type: does not use Lack of Transportation: YES Lack of Food: Sometimes True Current Housing: I Have Housing Concerned About Future Housing: No Difficulty Paying Gas/Electric Bills: YES Difficulty Paying for Meds: YES Currently Unemployed: No Education: High School Diploma/GED Difficulty w/ Childcare or Family Care: No Living arrangements: with family Additional living arrangements comments: Lives with family in [place]. 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 Spiritual care concerns: No Agree to blood products: Yes Meds Home Medications and Allergies Home Medications ?Medication ?Instructions ?Recorded ?Confirmed ?Type pen needle, diabetic 32 gauge x #50 ea 08/01/24 01/15/25 Rx 5/32 (Easy Comfort Pen [place]) apixaban 5 mg tablet (Eliquis) 5 mg PO BID #60 tabs 11/02/24 02/20/25 Rx insulin degludec 100 unit/mL (3 10 unit (0.1 mL) subcut DAILY #15 11/02/24 02/20/25 Rx mL) subcutaneous pen mL lactulose 10 gram/15 mL oral 15 ml PO QHS PRN constipation 11/02/24 02/20/25 History solution sevelamer HCl 800 mg tablet 1,600 mg PO TID 11/02/24 02/20/25 History blood-glucose sensor (FreeStyle #2 ea 11/03/24 01/15/25 Rx Alexandro 3 Plus Sensor device) acetaminophen 500 mg tablet 1,000 mg (2 x 500 mg) PO TID PRN 11/04/24 02/20/25 Rx tessie #180 tabs dextrose 40 % oral gel (Glutose-15) 15 g PO PRN PRN Hypoglycemia #112 12/02/24 02/20/25 Rx grams labetalol 100 mg tablet 400 mg (4 x 100 mg) PO Q12HR #240 12/02/24 02/20/25 Rx tabs pregabalin 75 mg capsule (Lyrica) 75 mg PO DAILY #90 caps 12/30/24 02/20/25 Rx doxazosin 2 mg tablet (Cardura) 2 mg PO QHS #90 tabs 01/10/25 02/20/25 Rx losartan 100 mg tablet 100 mg PO DAILY #90 tabs 01/10/25 02/20/25 Rx nifedipine 30 mg tablet,extended 60 mg (2 x 30 mg) PO QAM #30 tabs 01/18/25 02/20/25 Rx release 24 hr (Procardia XL) hydrocodone 5 mg-acetaminophen 325 1 tablet PO Q12H PRN pain #14 tabs 01/28/25 02/20/25 Rx mg tablet Allergies Allergy/AdvReac Type Severity Reaction Status Date / Time metronidazole Allergy Intermediate Rash Verified 02/20/25 09:20 omeprazole Allergy Intermediate Rash Verified 02/20/25 09:20 adhesive tape Allergy Mild Itching Verified 02/20/25 09:20 ibuprofen Allergy Unknown Verified 02/20/25 09:20 Vital Signs Vital Signs - 24 hr 02/20/25 03:08 02/20/25 04:37 02/20/25 04:38 Temperature Pulse Rate 67 69 Respiratory Rate 18 Blood Pressure 244/109 H Pulse Oximetry 94 100 Oxygen Delivery Room Air Nasal Cannula Oxygen Flow Rate 2 02/20/25 05:18 02/20/25 05:18 02/20/25 05:19 Temperature Pulse Rate 62 62 Respiratory Rate 19 5 L Blood Pressure 261/111 H Pulse Oximetry 100 100 96 Oxygen Delivery Room Air Oxygen Flow Rate 02/20/25 05:30 02/20/25 05:40 02/20/25 05:41 Temperature Pulse Rate 68 66 65 Respiratory Rate 15 14 16 Blood Pressure 259/102 H 259/102 H Pulse Oximetry 100 100 100 Oxygen Delivery Oxygen Flow Rate 02/20/25 05:45 02/20/25 05:46 02/20/25 05:56 Temperature Pulse Rate 72 64 Respiratory Rate 13 19 19 Blood Pressure 250/122 H 262/102 H Pulse Oximetry 100 100 98 Oxygen Delivery Oxygen Flow Rate 02/20/25 05:56 02/20/25 06:00 02/20/25 06:01 Temperature Pulse Rate 67 63 67 Respiratory Rate 19 13 18 Blood Pressure 262/102 H 262/105 H Pulse Oximetry 100 100 Oxygen Delivery Oxygen Flow Rate 02/20/25 06:09 02/20/25 06:11 02/20/25 06:15 Temperature Pulse Rate 69 66 64 Respiratory Rate 13 21 H 14 Blood Pressure 266/108 H 266/108 H 266/114 H Pulse Oximetry 97 96 100 Oxygen Delivery Oxygen Flow Rate 02/20/25 06:16 02/20/25 06:23 02/20/25 06:26 Temperature Pulse Rate 74 72 Respiratory Rate 32 H 29 H 22 H Blood Pressure 233/102 H 236/101 H Pulse Oximetry 100 Oxygen Delivery Oxygen Flow Rate 02/20/25 06:27 02/20/25 06:27 02/20/25 06:30 Temperature Pulse Rate 68 66 64 Respiratory Rate 24 H 25 H 20 Blood Pressure 236/108 H 236/108 H 228/93 H Pulse Oximetry 99 98 99 Oxygen Delivery Oxygen Flow Rate 02/20/25 06:58 02/20/25 06:59 02/20/25 08:00 Temperature Pulse Rate 65 67 70 Respiratory Rate 15 15 16 Blood Pressure 221/96 H 221/96 H 229/99 H Pulse Oximetry 100 100 100 Oxygen Delivery Oxygen Flow Rate 02/20/25 08:45 02/20/25 09:24 02/20/25 09:35 Temperature 97.5 F L Pulse Rate 67 68 Respiratory Rate 24 H Blood Pressure 181/130 H 192/88 H Pulse Oximetry 94 Oxygen Delivery Room Air Oxygen Flow Rate 02/20/25 09:50 02/20/25 10:00 02/20/25 10:00 Temperature Pulse Rate 62 65 66 Respiratory Rate Blood Pressure 187/80 H 173/84 H 173/84 H Pulse Oximetry 91 Oxygen Delivery Oxygen Flow Rate 02/20/25 10:15 02/20/25 10:30 02/20/25 10:45 Temperature Pulse Rate 66 67 68 Respiratory Rate Blood Pressure 178/85 H 186/81 H 182/66 H Pulse Oximetry Oxygen Delivery Oxygen Flow Rate 02/20/25 11:00 02/20/25 11:00 02/20/25 11:15 Temperature Pulse Rate 60 59 L 62 Respiratory Rate 18 Blood Pressure 175/76 H 181/79 H 181/79 H Pulse Oximetry 95 Oxygen Delivery Oxygen Flow Rate 02/20/25 11:30 02/20/25 11:45 02/20/25 12:00 Temperature Pulse Rate 67 65 60 Respiratory Rate Blood Pressure 180/114 H 181/92 H 178/72 H Pulse Oximetry Oxygen Delivery Oxygen Flow Rate 02/20/25 12:00 02/20/25 12:15 02/20/25 12:30 Temperature Pulse Rate 67 59 L 59 L Respiratory Rate Blood Pressure 191/70 H 191/70 H 190/74 H Pulse Oximetry 96 Oxygen Delivery Oxygen Flow Rate 02/20/25 13:00 Temperature Pulse Rate 69 Respiratory Rate Blood Pressure 191/140 H Pulse Oximetry 92 Oxygen Delivery Oxygen Flow Rate Results Lab Results 02/20/25 04:30 02/20/25 04:30 Lab results: Most recent lab results Calcium 9.6 mg/dL (8.4-10.2) 02/20/25 04:30 Magnesium 2.2 mg/dL (1.6-2.3) 02/20/25 04:30
[2025-02-20 15:03] LABS: INR 1.3; Prothrombin Time 16.1 Seconds (11.1-14.7)
--- NOTE | 2025-02-20 15:21 | PC.NURSE ---
This patient, Bakari Smith, was admitted to Intensive Care Unit-9 at 0815 today. Patient/family oriented to hospital policies and general routines including ID bracelet, bed and alarms, visiting hours, pain management, procedures, bathroom and other care routines, personal items, smoking policy, room service/diet, and visiting hours. Information on how to activate the Rapid Response Team has been discussed. Patient/Family are encouraged to report perceived risks to care and to ask questions if they do not understand what they are told or what they should do.
[2025-02-20] MEDS: SEVELAMER CARBONATE 800 MG TABLET 1600 MG PO (17:03)
[2025-02-20] MEDS: WARFARIN (*PBKC) 5 MG TABLET PO (17:03)
[2025-02-20] MEDS: LABETALOL HCL 100 MG TABLET 400 MG PO (21:08)
[2025-02-21] VITALS (27 sets, daily range): BP systolic 155–258; BP diastolic 63–156; PULSE 59–98; RESP 17–20; TEMP 36.5–37; O2SAT 95–100
[2025-02-21] MEDS: ACETAMINOPHEN 325 MG TABLET 650 MG PO ×2 (02:46→21:12)
[2025-02-21 05:51] LABS: Hematocrit 30.3 % (37.0-47.0); Hemoglobin 9.3 g/dL (12.0-15.0); Immature Platelet Fraction Pct 3.1 % (0.9-11.2); Mean Corpuscular HGB Conc 30.7 g/dl (32-36); Mean Corpuscular Hemoglobin 25.3 pg (26-34); Mean Corpuscular Volume 82.3 fl (80-100); Platelet Count Result 157 k/mm3 (150-375); Red Blood Count 3.68 M/mm3 (4.2-5.4); White Blood Count 7.7 K/mm3 (4.5-10.0)
[2025-02-21 06:12] LABS: Alanine Aminotransferase 57 U/L (6-35); Albumin Level 3.8 g/dL (3.5-5.1); Alkaline Phosphatase 483 U/L (38-126); Anion Gap 9 mmol/L (4-12); Aspartate Amino Transferase 39 U/L (14-36); Bilirubin,Total 0.9 mg/dL (0.2-1.3); Blood Urea Nitrogen 64 mg/dL (7-17); Calcium 9.1 mg/dL (8.4-10.2); Carbon Dioxide 23 mmol/L (22-30); Chloride 107 mmol/L (98-107); Estimated CRCL calculation 5 ml/min; Estimated Glomerular Filt Rate 3; Glucose 123 mg/dL (65-110); INR 1.4; Magnesium 2.2 mg/dL (1.6-2.3); Potassium 5.0 mmol/L (3.4-5.0); Prothrombin Time 17.6 Seconds (11.1-14.7); Sodium 139 mmol/L (137-145); Total Protein 7.5 g/dL (6.3-8.2)
--- NOTE | 2025-02-21 10:12 | PM.PNNEP ---
Progress Note: A&P Assessment and Plan (1) End stage chronic kidney disease: Code(s): N18.6 - End stage renal disease Status: Acute Assessment and Plan: Amy Rodas has end-stage renal disease. This is likely due to diabetes and hypertension. She has been on hemodialysis lately. She is training to do PD as well. She says that she drinks only 32oz of water per day. She does not understand were all the fluid comes from. The patient agrees this 79 is a good dry weight for her. Will take more fluid off today as tolerated. (2) Respiratory failure: Code(s): J96.90 - Respiratory failure, unspecified, unspecified whether with hypoxia or hypercapnia Status: Acute Assessment and Plan: the patient is looking better just with a drop in the blood pressure and improvement in afterload. Continue to remove fluid. (3) Hypertensive emergency: Code(s): I16.1 - Hypertensive emergency Status: Acute Assessment and Plan: Blood pressure is improving with fluid removal . Overnight it was over 200. Patient questions the accuracy of the cuff. (4) Hand pain, right: Code(s): M79.641 - Pain in right hand Status: Acute Assessment and Plan: the patient has carpal tunnel syndrome as well as diabetic neuropathy . This seems to be better than it was the last time I saw her. (5) Diabetic retinopathy associated with type 2 diabetes mellitus: Code(s): E11.319 - Type 2 diabetes mellitus with unspecified diabetic retinopathy without macular edema Status: Acute Assessment and Plan: She is on a sliding scale insulin plus Accu-Cheks. Hospitalist/order entry technician to manage this. (6) Dyslipidemia: Code(s): E78.5 - Hyperlipidemia, unspecified Status: Chronic Assessment and Plan: She is not on a statin. (7) Anemia: Code(s): D64.9 - Anemia, unspecified Status: Chronic Assessment and Plan: Hemoglobin is 10.1. We will need to give her some Epogen but will wait until blood pressure comes down some Subjective Date/time seen: 02/21/25 10:12 Interval history: I saw the patient this morning. She was anxious because the floor keeps getting blood pressures over 200. She says that it works better with a manual cuff but apparently the hospital floor does not have a manual cuff. patient is breathing better. She wants more fluid off. She says that she asks for extra fluid to be removed at [facility]. Exam Narrative: WDWN Female in NAD skin no rash head ncat lungs clear cor reg no rub abd BS+ nontender and soft ext 1+ bilateral edema. Objective Data Vital Signs Vital Signs: Vital Signs - 24 hr 02/20/25 10:15 02/20/25 10:30 02/20/25 10:45 Temperature Pulse Rate 66 67 68 Respiratory Rate Blood Pressure 178/85 H 186/81 H 182/66 H Pulse Oximetry Oxygen Delivery 02/20/25 11:00 02/20/25 11:00 02/20/25 11:15 Temperature Pulse Rate 60 59 L 62 Respiratory Rate 18 Blood Pressure 175/76 H 181/79 H 181/79 H Pulse Oximetry 95 Oxygen Delivery 02/20/25 11:30 02/20/25 11:45 02/20/25 12:00 Temperature Pulse Rate 67 65 60 Respiratory Rate Blood Pressure 180/114 H 181/92 H 178/72 H Pulse Oximetry Oxygen Delivery 02/20/25 12:00 02/20/25 12:15 02/20/25 12:30 Temperature Pulse Rate 67 59 L 59 L Respiratory Rate Blood Pressure 191/70 H 191/70 H 190/74 H Pulse Oximetry 96 Oxygen Delivery 02/20/25 12:35 02/20/25 12:45 02/20/25 13:00 Temperature 97.5 F L Pulse Rate 60 65 69 Respiratory Rate 15 Blood Pressure 194/73 H 177/74 H 191/140 H Pulse Oximetry 95 92 Oxygen Delivery 02/20/25 14:00 02/20/25 14:22 02/20/25 20:41 Temperature 97.4 F L 98.0 F Pulse Rate 58 L 70 74 Respiratory Rate 20 24 H 18 Blood Pressure 161/84 H 161/84 H 218/85 H Pulse Oximetry 95 95 100 Oxygen Delivery 02/20/25 21:08 02/20/25 21:35 02/21/25 00:52 Temperature Pulse Rate 74 Respiratory Rate Blood Pressure 217/84 H Pulse Oximetry Oxygen Delivery Room Air 02/21/25 05:28 02/21/25 06:50 02/21/25 07:30 Temperature 97.8 F Pulse Rate 98 60 Respiratory Rate 18 18 Blood Pressure 240/84 H 220/90 H 223/83 H Pulse Oximetry 96 95 Oxygen Delivery 02/21/25 08:52 Temperature 97.7 F Pulse Rate 70 Respiratory Rate 20 Blood Pressure 228/156 H Pulse Oximetry 100 Oxygen Delivery Intake/Output Intake/Output: Intake & Output 02/18/25 02/19/25 02/20/25 02/21/25 23:59 23:59 23:59 23:59 Intake Total 580 290 Output Total 4075 Balance -3495 290 Meds/Results Medications: Active Medications Generic Name Dose Route Start Last Admin Trade Name Freq PRN Reason Stop Dose Admin Acetaminophen 650 mg 02/20/25 06:39 02/21/25 02:46 Acetaminophen 325 Mg Tablet PO 650 mg Q4H PRN Administration Mild Pain (1-3) or Fever Hydrocodone Bitart/Acetaminophen 1 tab 02/20/25 14:04 Hydrocodone/Acetaminophen (*Crx) 5-325 Mg Tablet PO Q12H PRN Pain 4-6 Dextrose 12.5 gm 02/20/25 08:06 Dextrose 50% 25 Gm/50 Ml Syringe IV PUSH PRN PRN Hypoglycemia Protocol Glucose 15 gm 02/20/25 08:06 Glucose Oral Gel 15 Gm Of Glucse In 37.5 Gm Tube PO PRN PRN Hypoglycemia Protocol Hydralazine HCl 10 mg 02/21/25 01:41 02/21/25 01:53 Hydralazine Hcl 20 Mg/Ml Vial IV PUSH 10 mg Q8H PRN Administration Blood Pressure - High Albumin Human 50 mls @ 999 mls/hr 02/20/25 06:29 Albutein IVPB 03/22/25 06:28 Q10M PRN HYPOTENSION Dextrose 1,000 mls @ 100 mls/hr 02/20/25 08:06 Dextrose 5% 1,000 Ml IVPB PRN PRN Hypoglycemia Protocol Insulin Aspart 2 - 5 units 02/20/25 08:10 02/20/25 17:04 Insulin Aspart (*Bkc) 100 Units/Ml SUB-Q Not Given TIDWM [facility] Protocol Insulin Aspart 1 - 2 units 02/20/25 21:00 02/20/25 21:08 Insulin Aspart (*Bkc) 100 Units/Ml SUB-Q Not Given HS [facility] Protocol Insulin Glargine 10 units 02/21/25 09:00 Insulin Glargine (*Bkc) 100 Units/Ml SUB-Q DAILY [facility] Labetalol HCl 400 mg 02/20/25 21:00 02/20/25 21:08 Labetalol Hcl 100 Mg Tablet PO 400 mg Q12HR [facility] Administration Losartan Potassium 100 mg 02/21/25 09:00 Losartan Potassium 100 Mg Tablet PO DAILY [facility] Nifedipine 60 mg 02/21/25 09:00 Nifedipine 30 Mg Tab.Er.24 PO QAM [facility] Ondansetron HCl 4 mg 02/20/25 06:39 Ondansetron Inj 4 Mg/2 Ml Vial IV PUSH Q4H PRN Nausea Pregabalin 75 mg 02/21/25 09:00 Pregabalin (*Crx) 75 Mg Capsule PO DAILY [facility] Sevelamer Carbonate 1,600 mg 02/20/25 17:00 02/20/25 17:03 Sevelamer Carbonate 800 Mg Tablet PO 1,600 mg TIDWM [facility] Administration Warfarin Sodium 5 mg 02/20/25 17:00 02/20/25 17:03 Warfarin (*Pbkc) 5 Mg Tablet PO 5 mg DAILY@1700 [facility] Administration Radiology Results: ITS Impressions Chest X-Ray 02/20/25 06:47 IMPRESSION: 1. Large right and small left effusions, associated basilar atelectasis and/or airspace disease. 2. Interstitial pulmonary edema. Labs Labs: Laboratory Results - last 24 hr 02/20/25 02/20/25 02/20/25 10:13 11:23 14:43 WBC RBC Hgb Hct MCV MCH MCHC RDW Plt Count MPV % Immature Plt Fraction PT 16.1 H INR 1.3 Sodium Potassium Chloride Carbon Dioxide Anion Gap BUN Creatinine Estim Creat Clear Calc Estimated GFR Glucose POC Capillary Glucose 112 H 151 H Calcium Phosphorus Magnesium Total Bilirubin AST ALT Alkaline Phosphatase Total Protein Albumin 02/20/25 02/20/25 02/21/25 16:49 20:37 04:56 WBC 7.7 RBC 3.68 L Hgb 9.3 L Hct 30.3 L MCV 82.3 MCH 25.3 L MCHC 30.7 L RDW 22.5 H Plt Count 157 MPV TNP % Immature Plt Fraction 3.1 PT 17.6 H INR 1.4 Sodium 139 Potassium 5.0 Chloride 107 Carbon Dioxide 23 Anion Gap 9 BUN 64 H D Creatinine 12.85 H Estim Creat Clear Calc 5 Estimated GFR 3 L Glucose 123 H POC Capillary Glucose 119 H 175 H Calcium 9.1 Phosphorus 6.6 H Magnesium 2.2 Total Bilirubin 0.9 AST 39 H ALT 57 H Alkaline Phosphatase 483 H Total Protein 7.5 Albumin 3.8 02/21/25 08:05 WBC RBC Hgb Hct MCV MCH MCHC RDW Plt Count MPV % Immature Plt Fraction PT INR Sodium Potassium Chloride Carbon Dioxide Anion Gap BUN Creatinine Estim Creat Clear Calc Estimated GFR Glucose POC Capillary Glucose 116 H Calcium Phosphorus Magnesium Total Bilirubin AST ALT Alkaline Phosphatase Total Protein Albumin
[2025-02-21] MEDS: LOSARTAN POTASSIUM 100 MG TABLET PO (11:33)
[2025-02-21] MEDS: LABETALOL HCL 100 MG TABLET 400 MG PO ×2 (11:33→21:05)
[2025-02-21] MEDS: EPOETIN ALFA-EPBX 10,000 UNITS/ML VIAL 10000 UNITS IV PUSH (12:16)
[2025-02-21] MEDS: SEVELAMER CARBONATE 800 MG TABLET 1600 MG PO ×2 (13:17→17:21)
[2025-02-21] MEDS: PREGABALIN (*CRX) 75 MG CAPSULE PO (13:17)
[2025-02-21] MEDS: INSULIN GLARGINE (*BKC) 100 UNITS/ML 10 UNITS SUB-Q (13:17)
[2025-02-21] MEDS: ONDANSETRON INJ 4 MG/2 ML VIAL IV PUSH (14:13)
--- NOTE | 2025-02-21 15:22 | PM.IMPN2 ---
Assessment and Plan Assessment and Plan (1) Hypertensive urgency: Code(s): I16.0 - Hypertensive urgency Status: Acute Plan Blood pressure elevated however improved from earlier. We will continue to try to bring it down slowly. She has chronic resistant hypertension. Unfortunately, her decisions can be erratic. She apparently had hemodialysis discontinued today because she had to go to the bathroom. She reports she is compliant with her medications but often times dialysis is not completed. At any rate, she tells me sometimes she is given clonidine by her manager floral Dr. Fernandez in outpatient dialysis. And it works. I spoke with Dr. Stacy and we will start clonidine 0.1 mg p.o. t.i.d. continue monitoring. Discharged when blood pressure is improved and stable. She is breathing well on room air, denies shortness of breath. Continue [employer]ORAT[employer] ASSISTANT warfarin. Patient wishes to be full code. Renal dialysis diet. Time Spent With Patient Time with patient: Greater than 35 minutes Subjective Date/time seen: 02/21/25 15:22 Interval history: Patient tearful. From stress of being in the hospital. Denies suicide ideation Review of Systems Review of Systems: All systems reviewed & are unremarkable except as noted in HPI and below (Subjective) Exam Const: General: comfortable and no acute distress HENMT: Mouth: Yes moist mucous membranes Eyes: Pupils: Equal, round and reactive pupils present Neck: Neck: supple Resp: Effort & Inspection: normal respiratory effort Auscultation: clear to auscultation bilaterally Cardio: Rate: regular rate Rhythm: regular rhythm GI: Inspection: non-distended GI Palp: Yes Soft to palpation Neuro: Motor exam (neuro): 5/5 motor strength present throughout Extrem: General: no edema Objective Data Vital Signs Vital Signs: Vital Signs - 24 hr 02/20/25 20:41 02/20/25 21:08 02/20/25 21:35 Temperature 98.0 F Pulse Rate 74 74 Respiratory Rate 18 Blood Pressure 218/85 H Pulse Oximetry 100 Oxygen Delivery Room Air 02/21/25 00:52 02/21/25 05:28 02/21/25 06:50 Temperature 97.8 F Pulse Rate 98 Respiratory Rate 18 Blood Pressure 217/84 H 240/84 H 220/90 H Pulse Oximetry 96 Oxygen Delivery 02/21/25 07:30 02/21/25 08:52 02/21/25 09:08 Temperature 97.7 F Pulse Rate 60 70 70 Respiratory Rate 18 20 Blood Pressure 223/83 H 228/156 H 258/112 H Pulse Oximetry 95 100 Oxygen Delivery 02/21/25 09:15 02/21/25 09:30 02/21/25 09:45 Temperature Pulse Rate 75 69 61 Respiratory Rate Blood Pressure 237/117 H 258/108 H 252/141 H Pulse Oximetry Oxygen Delivery 02/21/25 10:00 02/21/25 10:15 02/21/25 10:30 Temperature Pulse Rate 59 L 68 61 Respiratory Rate Blood Pressure 239/109 H 231/86 H 236/119 H Pulse Oximetry Oxygen Delivery 02/21/25 10:45 02/21/25 11:00 02/21/25 11:00 Temperature Pulse Rate 63 62 63 Respiratory Rate Blood Pressure 232/101 H 238/104 H 221/94 H Pulse Oximetry Oxygen Delivery 02/21/25 11:15 02/21/25 11:30 02/21/25 11:33 Temperature Pulse Rate 64 63 61 Respiratory Rate Blood Pressure 244/106 H 221/94 H Pulse Oximetry Oxygen Delivery 02/21/25 11:45 02/21/25 12:00 02/21/25 12:18 Temperature Pulse Rate 67 64 69 Respiratory Rate Blood Pressure 212/102 H 234/115 H 230/112 H Pulse Oximetry Oxygen Delivery 02/21/25 12:25 02/21/25 14:00 Temperature 97.7 F 98 F Pulse Rate 76 65 Respiratory Rate 20 18 Blood Pressure 244/115 H 203/72 H Pulse Oximetry 100 100 Oxygen Delivery Intake/Output Intake/Output: Intake & Output 02/18/25 02/19/25 02/20/25 02/21/25 23:59 23:59 23:59 23:59 Intake Total 580 290 Output Total 7711 3422 Balance -7180 -1481 Meds/Results Medications: Active Medications Generic Name Dose Route Start Last Admin Trade Name Freq PRN Reason Stop Dose Admin Acetaminophen 650 mg 02/20/25 06:39 02/21/25 02:46 Acetaminophen 325 Mg Tablet PO 650 mg Q4H PRN Administration Mild Pain (1-3) or Fever Hydrocodone Bitart/Acetaminophen 1 tab 02/20/25 14:04 Hydrocodone/Acetaminophen (*Crx) 5-325 Mg Tablet PO Q12H PRN Pain 4-6 Clonidine HCl 0.1 mg 02/21/25 14:40 02/21/25 14:50 Clonidine Hcl 0.1 Mg Tablet PO 0.1 mg Q8HR CHAYO Administration Dextrose 12.5 gm 02/20/25 08:06 Dextrose 50% 25 Gm/50 Ml Syringe IV PUSH PRN PRN Hypoglycemia Protocol Glucose 15 gm 02/20/25 08:06 Glucose Oral Gel 15 Gm Of Glucse In 37.5 Gm Tube PO PRN PRN Hypoglycemia Protocol Hydralazine HCl 10 mg 02/21/25 01:41 02/21/25 13:17 Hydralazine Hcl 20 Mg/Ml Vial IV PUSH 10 mg Q8H PRN Administration Blood Pressure - High Albumin Human 50 mls @ 999 mls/hr 02/20/25 06:29 Albutein IVPB 03/22/25 06:28 Q10M PRN HYPOTENSION Dextrose 1,000 mls @ 100 mls/hr 02/20/25 08:06 Dextrose 5% 1,000 Ml IVPB PRN PRN Hypoglycemia Protocol Insulin Aspart 2 - 5 units 02/20/25 08:10 02/21/25 13:58 Insulin Aspart (*Bkc) 100 Units/Ml SUB-Q Not Given TIDWM [facility] Protocol Insulin Aspart 1 - 2 units 02/20/25 21:00 02/20/25 21:08 Insulin Aspart (*Bkc) 100 Units/Ml SUB-Q Not Given HS [facility] Protocol Insulin Glargine 10 units 02/21/25 09:00 02/21/25 13:17 Insulin Glargine (*Bkc) 100 Units/Ml SUB-Q 10 units DAILY CHAYO Administration Labetalol HCl 400 mg 02/20/25 21:00 02/21/25 11:33 Labetalol Hcl 100 Mg Tablet PO 400 mg Q12HR CHAYO Administration Losartan Potassium 100 mg 02/21/25 09:00 02/21/25 11:33 Losartan Potassium 100 Mg Tablet PO 100 mg DAILY CH[facility]O Administration Nifedipine 60 mg 02/21/25 09:00 02/21/25 11:33 Nifedipine 30 Mg Tab.Er.24 PO 60 mg QAM [facility]O Administration Ondansetron HCl 4 mg 02/20/25 06:39 02/21/25 14:13 Ondansetron Inj 4 Mg/2 Ml Vial IV PUSH 4 mg Q4H PRN Administration Nausea Pregabalin 75 mg 02/21/25 09:00 02/21/25 13:17 Pregabalin (*Crx) 75 Mg Capsule PO 75 mg DAILY CHAYO Administration Sevelamer Carbonate 1,600 mg 02/20/25 17:00 02/21/25 13:17 Sevelamer Carbonate 800 Mg Tablet PO 1,600 mg TIDWM [facility] Administration Warfarin Sodium 5 mg 02/20/25 17:00 02/20/25 17:03 Warfarin (*Pbkc) 5 Mg Tablet PO 5 mg DAILY@1700 CHAYO Administration Radiology Results: ITS Impressions Chest X-Ray 02/20/25 06:47 IMPRESSION: 1. Large right and small left effusions, associated basilar atelectasis and/or airspace disease. 2. Interstitial pulmonary edema. Labs Labs: Laboratory Results - last 24 hr 02/20/25 02/20/25 02/21/25 16:49 20:37 04:56 WBC 7.7 RBC 3.68 L Hgb 9.3 L Hct 30.3 L MCV 82.3 MCH 25.3 L MCHC 30.7 L RDW 22.5 H Plt Count 157 MPV TNP % Immature Plt Fraction 3.1 PT 17.6 H INR 1.4 Sodium 139 Potassium 5.0 Chloride 107 Carbon Dioxide 23 Anion Gap 9 BUN 64 H D Creatinine 12.85 H Estim Creat Clear Calc 5 Estimated GFR 3 L Glucose 123 H POC Capillary Glucose 119 H 175 H Calcium 9.1 Phosphorus 6.6 H Magnesium 2.2 Total Bilirubin 0.9 AST 39 H ALT 57 H Alkaline Phosphatase 483 H Total Protein 7.5 Albumin 3.8 02/21/25 02/21/25 08:05 13:53 WBC RBC Hgb Hct MCV MCH MCHC RDW Plt Count MPV % Immature Plt Fraction PT INR Sodium Potassium Chloride Carbon Dioxide Anion Gap BUN Creatinine Estim Creat Clear Calc Estimated GFR Glucose POC Capillary Glucose 116 H 123 H Calcium Phosphorus Magnesium Total Bilirubin AST ALT Alkaline Phosphatase Total Protein Albumin
[2025-02-21] MEDS: WARFARIN (*PBKC) 5 MG TABLET PO (17:20)
[2025-02-21] MEDS: HYDROcodone/acetaminophen (*CRX) 5-325 MG TABLET 1 TAB PO (22:36)
[2025-02-22 04:18] VITALS: BP 156/76; PULSE 62; RESP 17; TEMP 36.4; O2SAT 96
[2025-02-22 05:31] LABS: Hematocrit 32.2 % (37.0-47.0); Hemoglobin 9.6 g/dL (12.0-15.0); Immature Platelet Fraction Pct 3.7 % (0.9-11.2); Mean Corpuscular HGB Conc 29.8 g/dl (32-36); Mean Corpuscular Hemoglobin 25.0 pg (26-34); Mean Corpuscular Volume 83.9 fl (80-100); Platelet Count Result 167 k/mm3 (150-375); Red Blood Count 3.84 M/mm3 (4.2-5.4); White Blood Count 7.2 K/mm3 (4.5-10.0)
[2025-02-22 05:40] LABS: Albumin Level 3.8 g/dL (3.5-5.1); Anion Gap 6 mmol/L (4-12); Blood Urea Nitrogen 36 mg/dL (7-17); Calcium 9.1 mg/dL (8.4-10.2); Carbon Dioxide 31 mmol/L (22-30); Chloride 103 mmol/L (98-107); Estimated CRCL calculation 7 ml/min; Estimated Glomerular Filt Rate 4; Glucose 100 mg/dL (65-110); Potassium 4.6 mmol/L (3.4-5.0); Sodium 140 mmol/L (137-145)
[2025-02-22 05:47] LABS: INR 1.4; Prothrombin Time 17.2 Seconds (11.1-14.7)
[2025-02-22] MEDS: INSULIN GLARGINE (*BKC) 100 UNITS/ML 10 UNITS SUB-Q (08:51)
[2025-02-22] MEDS: SEVELAMER CARBONATE 800 MG TABLET 1600 MG PO (08:51)
[2025-02-22] MEDS: LOSARTAN POTASSIUM 100 MG TABLET PO (08:51)
[2025-02-22] MEDS: PREGABALIN (*CRX) 75 MG CAPSULE PO (08:51)
[2025-02-22] MEDS: LABETALOL HCL 100 MG TABLET 400 MG PO (09:06)
--- NOTE | 2025-02-22 10:15 | P.PNNP_ITS ---
Progress Note: A&P Assessment and Plan (1) End stage chronic kidney disease: Code(s): N18.6 - End stage renal disease Status: Acute Assessment and Plan: Bakari has end-stage renal disease. This is likely due to diabetes and hypertension. She has been on hemodialysis lately. She will transition to peritoneal dialysis this evening or at least when she goes home.. Okay for discharge from the kidney standpoint. (2) Respiratory failure: Code(s): J96.90 - Respiratory failure, unspecified, unspecified whether with hypoxia or hypercapnia Status: Acute Assessment and Plan: Breathing is okay now. Off oxygen (3) Hypertensive emergency: Code(s): I16.1 - Hypertensive emergency Status: Acute Assessment and Plan: Blood pressure is improving with fluid removal . Overnight it was over 200. Patient questions the accuracy of the cuff. (4) Hand pain, right: Code(s): M79.641 - Pain in right hand Status: Acute Assessment and Plan: the patient has carpal tunnel syndrome as well as diabetic neuropathy . This seems to be better (5) Diabetic retinopathy associated with type 2 diabetes mellitus: Code(s): E11.319 - Type 2 diabetes mellitus with unspecified diabetic retinopathy without macular edema Status: Acute Assessment and Plan: She is on a sliding scale insulin plus Accu-Cheks. Hospitalist/shipping clerk to manage this. (6) Dyslipidemia: Code(s): E78.5 - Hyperlipidemia, unspecified Status: Chronic Assessment and Plan: She is not on a statin. (7) Anemia: Code(s): D64.9 - Anemia, unspecified Status: Chronic Assessment and Plan: Hemoglobin is 9.1 . Will get Mircera as an outpatient Subjective Date/time seen: 02/22/25 10:15 Interval history: Patient is alert. She is in good spirits. Eager for discharge. She has finished retraining for her peritoneal dialysis and will start PD tonight. Romina is going to meet her today if she is able to be discharged. Exam Narrative: WDWN Female in NAD skin no rash head ncat lungs clear cor reg no rub abd BS+ nontender and soft ext trace bilateral edema. Objective Data Vital Signs Vital Signs: Vital Signs - 24 hr 02/21/25 10:30 02/21/25 10:45 02/21/25 11:00 Temperature Pulse Rate 61 63 62 Respiratory Rate Blood Pressure 236/119 H 232/101 H 238/104 H Pulse Oximetry 02/21/25 11:00 02/21/25 11:15 02/21/25 11:30 Temperature Pulse Rate 63 64 63 Respiratory Rate Blood Pressure 221/94 H 244/106 H 221/94 H Pulse Oximetry 02/21/25 11:33 02/21/25 11:45 02/21/25 12:00 Temperature Pulse Rate 61 67 64 Respiratory Rate Blood Pressure 212/102 H 234/115 H Pulse Oximetry 02/21/25 12:18 02/21/25 12:25 02/21/25 14:00 Temperature 97.7 F 98 F Pulse Rate 69 76 65 Respiratory Rate 20 18 Blood Pressure 230/112 H 244/115 H 203/72 H Pulse Oximetry 100 100 02/21/25 15:59 02/21/25 18:42 02/21/25 20:56 Temperature 98.1 F Pulse Rate 68 Respiratory Rate 17 Blood Pressure 193/75 H 188/73 H 155/63 H Pulse Oximetry 96 02/21/25 21:05 02/22/25 04:18 Temperature 97.6 F Pulse Rate 68 62 Respiratory Rate 17 Blood Pressure 156/76 H Pulse Oximetry 96 Intake/Output Intake/Output: Intake & Output 02/19/25 02/20/25 02/21/25 02/22/25 23:59 23:59 23:59 23:59 Intake Total 580 1010 150 Output Total 4075 3450 Balance -3495 -2440 150 Meds/Results Medications: Active Medications Generic Name Dose Route Start Last Admin Trade Name Lorenzoq PRN Reason Stop Dose Admin Acetaminophen 650 mg 02/20/25 06:39 02/21/25 21:12 Acetaminophen 325 Mg Tablet PO 650 mg Q4H PRN Administration Mild Pain (1-3) or Fever Hydrocodone Bitart/Acetaminophen 1 tab 02/20/25 14:04 02/21/25 22:36 Hydrocodone/Acetaminophen (*Crx) 5-325 Mg Tablet PO 1 tab Q12H PRN Administration Pain 4-6 Clonidine HCl 0.1 mg 02/21/25 14:40 02/22/25 05:32 Clonidine Hcl 0.1 Mg Tablet PO 0.1 mg Q8HR CHAYO Administration Dextrose 12.5 gm 02/20/25 08:06 Dextrose 50% 25 Gm/50 Ml Syringe IV PUSH PRN PRN Hypoglycemia Protocol Glucose 15 gm 02/20/25 08:06 Glucose Oral Gel 15 Gm Of Glucse In 37.5 Gm Tube PO PRN PRN Hypoglycemia Protocol Hydralazine HCl 10 mg 02/21/25 01:41 02/21/25 13:17 Hydralazine Hcl 20 Mg/Ml Vial IV PUSH 10 mg Q8H PRN Administration Blood Pressure - High Albumin Human 50 mls @ 999 mls/hr 02/20/25 06:29 Albutein IVPB 03/22/25 06:28 Q10M PRN HYPOTENSION Dextrose 1,000 mls @ 100 mls/hr 02/20/25 08:06 Dextrose 5% 1,000 Ml IVPB PRN PRN Hypoglycemia Protocol Insulin Aspart 2 - 5 units 02/20/25 08:10 02/22/25 08:52 Insulin Aspart (*Bkc) 100 Units/Ml SUB-Q Not Given TIDWM [facility] Protocol Insulin Aspart 1 - 2 units 02/20/25 21:00 02/21/25 21:05 Insulin Aspart (*Bkc) 100 Units/Ml SUB-Q Not Given HS CHAYO Protocol Insulin Glargine 10 units 02/21/25 09:00 02/22/25 08:51 Insulin Glargine (*Bkc) 100 Units/Ml SUB-Q 10 units DAILY CHAYO Administration Labetalol HCl 400 mg 02/20/25 21:00 02/22/25 09:06 Labetalol Hcl 100 Mg Tablet PO 400 mg Q12HR CHAYO Administration Losartan Potassium 100 mg 02/21/25 09:00 02/22/25 08:51 Losartan Potassium 100 Mg Tablet PO 100 mg DAILY CHAYO Administration Nifedipine 60 mg 02/21/25 09:00 02/22/25 08:51 Nifedipine 30 Mg Tab.Er.24 PO 60 mg QAM CHAYO Administration Ondansetron HCl 4 mg 02/20/25 06:39 02/21/25 14:13 Ondansetron Inj 4 Mg/2 Ml Vial IV PUSH 4 mg Q4H PRN Administration Nausea Pregabalin 75 mg 02/21/25 09:00 02/22/25 08:51 Pregabalin (*Crx) 75 Mg Capsule PO 75 mg DAILY CHAYO Administration Sevelamer Carbonate 1,600 mg 02/20/25 17:00 02/22/25 08:51 Sevelamer Carbonate 800 Mg Tablet PO 1,600 mg TIDWM [facility] Administration Warfarin Sodium 5 mg 02/20/25 17:00 02/21/25 17:20 Warfarin (*Pbkc) 5 Mg Tablet PO 5 mg DAILY@1700 [facility] Administration Radiology Results: ITS Impressions Chest X-Ray 02/20/25 06:47 IMPRESSION: 1. Large right and small left effusions, associated basilar atelectasis and/or airspace disease. 2. Interstitial pulmonary edema. Labs Labs: Laboratory Results - last 24 hr 02/21/25 02/21/25 02/21/25 13:53 16:30 20:52 WBC RBC Hgb Hct MCV MCH MCHC RDW Plt Count MPV % Immature Plt Fraction PT INR Sodium Potassium Chloride Carbon Dioxide Anion Gap BUN Creatinine Estim Creat Clear Calc Estimated GFR Glucose POC Capillary Glucose 123 H 110 H 142 H Calcium Phosphorus Albumin 02/22/25 02/22/25 05:17 07:54 WBC 7.2 RBC 3.84 L Hgb 9.6 L Hct 32.2 L MCV 83.9 MCH 25.0 L MCHC 29.8 L RDW 22.3 H Plt Count 167 MPV TNP % Immature Plt Fraction 3.7 PT 17.2 H INR 1.4 Sodium 140 Potassium 4.6 Chloride 103 Carbon Dioxide 31 H Anion Gap 6 BUN 36 H D Creatinine 9.53 H Estim Creat Clear Calc 7 Estimated GFR 4 L Glucose 100 POC Capillary Glucose 105 Calcium 9.1 Phosphorus 5.7 H Albumin 3.8
--- NOTE | 2025-02-22 10:27 | P.DS_ITS ---
DS: Admitting Diagnosis Discharge Date 02/22/2025 Admitting Diagnosis Shortness of breath DS: Discharge Diagnosis Discharge Diagnosis (1) Hypertensive urgency: Code(s): I16.0 - Hypertensive urgency Status: Acute (2) ESRD (end stage renal disease): Code(s): N18.6 - End stage renal disease Status: Acute DS: Summary Hospital Course Hospital Course: 44-year-old female with history of ESRD on hemodialysis Thursday, previously on peritoneal dialysis discontinued due to abdominal infection requiring drain placement in 09/2024, history of uncontrolled h ypertension, obesity, insulin-dependent diabetes mellitus, history of CVA with residual vision changes in balance issues, history of blood clot in the right neck vein. She has frequent presentations with shortness of breath and dialysis related complications. She has been feeling short of breath since her last dialysis on Thursday02/18/2025. She had 3 L removed however reports she is 6 kg up from her dry weight of 89 kg. Currently, she is using a left IJ PermCath, and transitioning to peritoneal dialysis soon. Nonfunctional fistula in the left upper extremity. She was recently hospitalized for shortness of breath, fluid overload, hypertension requiring BiPAP. She sees local Nephrology group and goes to [facility] dialysis. She denies fever cough chest pain, wheezing, nausea vomiting, diarrhea. Reports orthopnea. Blood pressure on arrival 262/102. She received Lasix 80 mg IV x1, doxazosin 2 mg p.o. x1, nifedipine 60 mg p.o. x1, losartan 100 mg p.o. x1, labetalol 20 mg IV x2. Blood pressure improved to 221/96, she was resting comfortably while in bed. Nephrology consulted for dialysis. ----- At times, the patient will have dialysis discontinued prematurely. This certainly complicates her high blood pressure and fluid overload. She has been encouraged to adhere to dialysis as scheduled. She received a partial dialysis on 02/21/2025, her blood pressure was still elevated afterwards. Ultimately we added clonidine 0.1 mg p.o. q.8 hours with significant improvement. Blood pressure now 156/76, the patient continues to remain asymptomatic, she is discharged in stable condition to home on 02/22/2025. She has been working closely with Nephrology and she is going to transition to peritoneal dialysis tonight, her PD nurses going to meet her at home in the afternoon. She will follow-up with her usual employment program representative Dr. Fernandez. She was full code during the admission. Time Spent with Patient Time attestation: Total time spent providing and/or coordinating discharge services: Time spent: Greater than 30 minutes Exam Const: General: comfortable and no acute distress HENMT: Mouth: Yes moist mucous membranes Eyes: Pupils: Equal, round and reactive pupils present Neck: Neck: supple Resp: Effort & Inspection: normal respiratory effort Auscultation: clear to auscultation bilaterally Cardio: Rate: regular rate Rhythm: regular rhythm GI: Inspection: non-distended GI Palp: Yes Soft to palpation Neuro: Motor exam (neuro): 5/5 motor strength present throughout Extrem: General: no edema DS: Data Data Completed and Pending Labs on day of discharge: Labs from last 24 hours 02/22/25 02/22/25 02/21/25 07:54 05:17 20:52 WBC 7.2 RBC 3.84 L Hgb 9.6 L Hct 32.2 L MCV 83.9 MCH 25.0 L MCHC 29.8 L RDW 22.3 H Plt Count 167 MPV TNP % Immature Plt Fraction 3.7 PT 17.2 H INR 1.4 Sodium 140 Potassium 4.6 Chloride 103 Carbon Dioxide 31 H Anion Gap 6 BUN 36 H D Creatinine 9.53 H Estim Creat Clear Calc 7 Estimated GFR 4 L Glucose 100 POC Capillary Glucose 105 142 H Calcium 9.1 Phosphorus 5.7 H Albumin 3.8 02/21/25 02/21/25 16:30 13:53 WBC RBC Hgb Hct MCV MCH MCHC RDW Plt Count MPV % Immature Plt Fraction PT INR Sodium Potassium Chloride Carbon Dioxide Anion Gap BUN Creatinine Estim Creat Clear Calc Estimated GFR Glucose POC Capillary Glucose 110 H 123 H Calcium Phosphorus Albumin Discharge Plan Discharge Attending physician on discharge: Estefanía Zapata Consulting providers: Beth Fernandez; Pablo Monroe Discharging Clinician: Estefanía Zapata Patient Disposition: Home Activity: may shower Diet: heart healthy and renal Patient Instructions: Antibiotic Form, Warfarin (By mouth), Chronic Hypertension (DC) Patient Language: Emirati Stand Alone Forms: General Discharge Information Follow-up/Referrals: Beth Fernandez MD [Physician, Nephrology] Sulema Lennon, RESIDENTIAL INSURANCE INSPECTOR [Primary Care Provider, Internal Medicine] Discharge Medications: New clonidine HCl 0.1 mg Tablet 0.1 mg PO Q8HR Qty: 90 0RF warfarin 5 mg tablet 5 mg PO DAILY Qty: 30 0RF Continued insulin degludec 100 unit/mL (3 mL) insulin pen 10 unit subcut DAILY Qty: 15 1RF Patient Comments: I take it at night sevelamer HCl 800 mg tablet 1,600 mg PO TID Rx Instructions: must administer with a meal/food nifedipine [Procardia XL] 30 mg Tablet Extended Release 24hr 60 mg PO QAM Qty: 30 0RF labetalol 100 mg Tablet 400 mg PO Q12HR Qty: 240 0RF hydrocodone-acetaminophen 5-325 mg tablet 1 tablet PO Q12H PRN (Reason: pain) Qty: 14 0RF (DME) pen needle, diabetic [Easy Comfort Pen [place]] 32 gauge x 5/32 needle See Rx Instructions .Route Qty: 50 3RF Rx Instructions: Inject insulin once daily As directed (DME) FreeStyle Alexandro 3 Plus Sensor Device See Rx Instructions .Route Qty: 2 3RF Rx Instructions: Check glucose continuously every 15 days As directed acetaminophen 500 mg tablet 1,000 mg PO TID PRN (Reason: tessie) Qty: 180 1RF pregabalin [Lyrica] 75 mg capsule 75 mg PO DAILY Qty: 90 1RF losartan 100 mg tablet 100 mg PO DAILY Qty: 90 1RF Discontinued lactulose 10 gram/15 mL solution 15 ml PO QHS PRN (Reason: constipation) Eliquis 5 mg tablet 5 mg PO BID Qty: 60 5RF dextrose [Glutose-15] 40 % Gel 15 g PO PRN PRN (Reason: Hypoglycemia) Qty: 112 0RF doxazosin [Cardura] 2 mg tablet 2 mg PO QHS Qty: 90 1RF Date of admission: 02/20/25 06:39 Primary Care Provider: Sulema Lennon Admitting Provider: Chava Hoang Attending physician on admission: Chava Hoang Condition: Stable Hospitalist MIPS Heart Failure (Exclusion) Patient has history of Heart Transplant or Left Ventricular Assistive Device?: No IF YES, STOP HERE Heart Failure (Qualifier) Patient has current or prior documentation of LVEF less than or equal to 40%, or mod/servere depressed LVSF?: No IF NO, STOP HERE
== END 2025-02-22 11:55 | disposition home or self-care (01) | DRG 304 ==
LOC: ANHED 06:51 → ANHICU 10:01 → ANH2MED 02-21 16:36 → ANHICU 02-24 15:49
PROVIDERS: Internal Medicine Critical Care Medicine; Internal Medicine Nephrology; Admitting Provider Internal Medicine; Emergency Provider Student in an Organized Health Care Education/Training Program; PCP Nurse Practitioner Family; Visit Provider General Practice
DX: I16.1 Hypertensive emergency (principal); N18.6 End stage renal disease; I12.0 Hypertensive chronic kidney disease with stage 5 chronic kidney disease or end stage renal disease; E87.79 Other fluid overload; Z99.2 Dependence on renal dialysis; E11.22 Type 2 diabetes mellitus with diabetic chronic kidney disease; I69.398 Other sequelae of cerebral infarction; R26.89 Other abnormalities of gait and mobility; H53.8 Other visual disturbances; E11.319 Type 2 diabetes mellitus with unspecified diabetic retinopathy without macular edema; E11.42 Type 2 diabetes mellitus with diabetic polyneuropathy; D64.9 Anemia, unspecified; K21.9 Gastro-esophageal reflux disease without esophagitis; K58.9 Irritable bowel syndrome, unspecified; M19.90 Unspecified osteoarthritis, unspecified site; N25.0 Renal osteodystrophy; G56.00 Carpal tunnel syndrome, unspecified upper limb; Z79.01 Long term (current) use of anticoagulants; Z90.49 Acquired absence of other specified parts of digestive tract; Z79.4 Long term (current) use of insulin; E66.9 Obesity, unspecified; Z68.34 Body mass index [BMI] 34.0-34.9, adult
CPT/HCPCS: 36415; 71045; 80053; 80069; 82948; 83735; 83880; 84100; 85025; 85027; 85055; 85610; 85730; 87040; 87637; 87641; 93005; 96374; 96375; 96376; 99285; A9270; G0257; J0360; J1644; J1815; J1938; J2405; J7030; Q5105